=== PATIENT | female | born 1980 | race Caucasian/White ===

== ENCOUNTER 2022-11-01 10:03 | Outpatient (OUT) | payer OTHER, SELFPAY ==
[2022-11-01 11:17] LABS: Hemoglobin 14.1 g/dL (12.0-16.0); Mean Corpuscular HGB Conc 32.8 g/dL (29.9-35.2); Mean Corpuscular Hemoglobin 28.3 pg (26.7-34.0); Mean Corpuscular Volume 86.2 fL (81.0-99.0); Mean Platelet Volume 10.6 fL (9.5-13.5); Platelet Count 282 10^3/uL (150-450); Red Blood Count 4.99 10^6/uL (4.20-5.40); Red Cell Distribution Width 13.4 % (11.0-15.0); White Blood Count 10.8 10^3/uL (4.0-11.0)
[2022-11-01 11:40] LABS: Percent Iron Saturation 8.8 %
== END 2022-11-01 10:04 | disposition home or self-care (01) ==
LOC: LAB 11-07 10:03
PROVIDERS: PCP Nurse Practitioner Primary Care; Visit Provider Nurse Practitioner Primary Care
DX: E55.9 Vitamin D deficiency, unspecified (principal); R74.8 Abnormal levels of other serum enzymes; D50.9 Iron deficiency anemia, unspecified
CPT/HCPCS: 36415; 82306; 82607; 82728; 83540; 83550; 85027

== ENCOUNTER 2022-11-18 07:37 | Outpatient (RCR) | payer OTHER, SELFPAY | END 2022-11-29 23:59 | disposition home or self-care (01) | LOC: INF 07:37 | PROVIDERS: PCP Nurse Practitioner Primary Care; Visit Provider Internal Medicine Hematology & Oncology | DX: D50.9 Iron deficiency anemia, unspecified (principal); K90.9 Intestinal malabsorption, unspecified | CPT/HCPCS: G0463 ==

== ENCOUNTER 2022-12-05 07:59 | Outpatient (OUT) | payer OTHER, SELFPAY ==
--- NOTE | 2022-12-05 | ECG_ITS ---
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
[2022-12-05 10:19] LABS: Basophils Percent Auto 0.4 % (0.2-2.0); Eosinophils Absolute Auto 0.1 10^3/uL (0.0-0.7); Eosinophils Percent Auto 1.2 % (0.9-7.0); Hematocrit 43.5 % (36.0-48.0); Hemoglobin 13.9 g/dL (12.0-16.0); Immature Granulocytes Abs Auto 0.03 10^3/uL (0.00-0.03); Immature Granulocytes Pct Auto 0.3 % (0.0-0.5); Lymphocytes Absolute Auto 2.2 10^3/uL (1.2-3.8); Lymphocytes Percent Auto 24.5 % (20.5-60.0); Mean Corpuscular Hemoglobin 28.3 pg (26.7-34.0); Mean Corpuscular Volume 88.6 fL (81.0-99.0); Mean Platelet Volume 11.1 fL (9.5-13.5); Monocytes Absolute Auto 0.6 10^3/uL (0.3-0.8); Monocytes Percent Auto 6.6 % (1.7-12.0); Platelet Count 289 10^3/uL (150-450); Red Blood Count 4.91 10^6/uL (4.20-5.40); Red Cell Distribution Width 13.5 % (11.0-15.0)
[2022-12-05 10:34] LABS: Alanine Aminotransferase 26 U/L (14-59); Albumin Level 3.6 g/dL (3.4-5.0); Alkaline Phosphatase 94 U/L (46-116); Aspartate Amino Transferase 15 U/L (15-37); Bilirubin Total 0.4 mg/dL (0.2-1.0); Calcium 9.2 mg/dL (8.5-10.1); Carbon Dioxide 27.3 mmol/L (21.0-32.0); Chloride 102 mmol/L (98-107); Estimated GFR (African America >60 (>=60); Estimated GFR (Non-African Ame >60 (>=60); Globulin 3.7 g/dL; Glucose 81 mg/dL (74-106); Potassium 4.3 mmol/L (3.5-5.1); Sodium 138 mmol/L (136-145); Thyroid Stimulating Hormone 0.902 uIU/mL (0.358-3.740); Total Protein 7.3 g/dL (6.4-8.2)
[2022-12-06 03:07] LABS: Prolactin 29.3 ng/mL (4.8-23.3)
== END 2022-12-05 08:00 | disposition home or self-care (01) ==
LOC: CARD 08:00
PROVIDERS: PCP Nurse Practitioner Primary Care
DX: R05.1 Acute cough (principal); Z79.899 Other long term (current) drug therapy
CPT/HCPCS: 36415; 71046; 80053; 84146; 84443; 85025; 93005

== ENCOUNTER 2022-12-05 08:06 | Outpatient (OUT) | payer OTHER, SELFPAY ==
--- NOTE | 2022-12-05 08:13 | XR_ITS ---
The [address] [address] Patient Name: PEE WHITEHEAD MRN: [id number] date: 1980 Sex: F Assigned Patient Location: [facility] Current Patient Location: [facility] Accession/Order Number: [id number] Exam Date: 12/05/2022 08:20 Report Date: 12/05/2022 08:40 At the request of: LUZ MARIA KIDD Procedure: XR chest 2V EXAM: CHEST 2 VIEWS HISTORY: Acute Cough TECHNIQUE: PA and lateral views chest. COMPARISON: None. FINDINGS: The lungs are clear. There is no focal lung consolidation, pleural effusion or pneumothorax. Pulmonary vasculature is within normal limits. There are calcified mediastinal and hilar lymph nodes. The cardiomediastinal silhouette is normal. XR/XR chest 2V IMPRESSION: 1. Clear lungs without consolidation or effusion. Recommend followup imaging if symptoms worsen or persist. Electronically authenticated by: HONG HANDLEY Date: 12/05/2022 08:40
== END 2022-12-05 08:07 | disposition home or self-care (01) ==
LOC: RAD 08:06
PROVIDERS: PCP Nurse Practitioner Primary Care; Visit Provider Nurse Practitioner Primary Care
DX: R05.1 Acute cough (principal)
CPT/HCPCS: 71046

== ENCOUNTER 2022-12-11 12:56 | Outpatient (OUT) | payer OTHER, SELFPAY ==
--- NOTE | 2022-12-11 | XR_ITS ---
The [address] [address] Patient Name: PEE WHITEHEAD MRN: [id number] date: 1980 Sex: F Assigned Patient Location: [facility] Current Patient Location: [facility] Accession/Order Number: [id number] Exam Date: 12/11/2022 13:15 Report Date: 12/12/2022 08:30 At the request of: DEANN ROMERO Procedure: XR ankle LT min 3V PROCEDURE: XR ankle LT min 3V COMPARISON: None. HISTORY: LEFT ANKLE PAIN FINDINGS: BONES:No acute fracture or dislocation. 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 Remote healed fracture of the distal fibular diaphysis. Widening of the tibiofibular syndesmosis suspected SOFT TISSUES:Negative. No visible soft tissue swelling. EFFUSION:None visible. OTHER: Negative. 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
== END 2022-12-11 12:57 | disposition home or self-care (01) ==
LOC: RAD 12:56
PROVIDERS: PCP Nurse Practitioner Primary Care; Visit Provider Physician Assistant
DX: M25.572 Pain in left ankle and joints of left foot (principal)
CPT/HCPCS: 73610

== ENCOUNTER 2022-12-19 07:31 | Outpatient (RCR) | payer OTHER, SELFPAY ==
[2022-12-12 08:10] VITALS: BP 137/81; PULSE 94; RESP 18; TEMP 36.4; O2SAT 96
[2022-12-12] MEDS: FERUMOXYTOL 510 MG in 0.9 % SODIUM CHLORIDE 100 ML 234 MG IV (08:25)
--- NOTE | 2022-12-12 08:49 | PC.NURSE ---
0810: Pt. to [facility] amb. for infusion. Accompanied by son. Seated in recliner. VSS. Denies c/o. #22 gauge IV initiated to left arm on first attempt without difficulty. Flushes easily without redness or edema. Pt. tolerated with minimal c/o. 0825: IV Feraheme initiated at this time. Pt. denies needs or c/o. 0855: IV infusion complete without s&s of adverse reaction. IV d/c'd, pressure to site. Pt. d/c'd amb. to home with son.
[2022-12-19 09:20] VITALS: BP 116/81; PULSE 91; RESP 18; TEMP 36.3; O2SAT 96
[2022-12-19] MEDS: FERUMOXYTOL 510 MG in 0.9 % SODIUM CHLORIDE 100 ML 234 MG IV (09:36)
== END 2022-12-19 13:54 | disposition home or self-care (01) ==
LOC: INF 07:31
PROVIDERS: PCP Nurse Practitioner Primary Care; Visit Provider Internal Medicine Hematology & Oncology
DX: D50.9 Iron deficiency anemia, unspecified (principal); K90.9 Intestinal malabsorption, unspecified
CPT/HCPCS: 96365; Q0138

== ENCOUNTER 2023-01-20 07:29 | Outpatient (RCR) | payer OTHER, SELFPAY ==
[2023-01-13 11:50] LABS: Percent Iron Saturation 34.6 %
== END 2023-01-29 23:59 | disposition home or self-care (01) ==
LOC: INF 07:29
PROVIDERS: PCP Nurse Practitioner Primary Care; Visit Provider Internal Medicine Hematology & Oncology
DX: D64.9 Anemia, unspecified (principal); D50.9 Iron deficiency anemia, unspecified; K90.9 Intestinal malabsorption, unspecified
CPT/HCPCS: 36415; 82728; 83540; 83550; G0463

== ENCOUNTER 2023-03-25 09:27 | Outpatient (OUT) | payer OTHER, SELFPAY ==
--- NOTE | 2023-03-25 09:30 | MM_ITS ---
Patient Name: PEE WHITEHEAD MR#: [id number] : 1980 Exam Date: 03/25/2023 Ordering Doctor: LUZ MARIA KIDD This report includes an Addendum and supersedes previous reports for this exam. RADIOLOGY REPORT PROCEDURE: MM DIAGNOSTIC MAMMO UNILAT RT, 03/25/2023, 09:32 US BREAST RT LIMITED, 03/25/2023, 09:51 COMPARISON: MG MAMM SCREEN 3D STELLA CAD, 03/16/2023. INDICATIONS: abnormal mammogram R92.8 Calculator Name NCI Breast Cancer Risk Assessment Tool 5 Year Breast Cancer Risk Not Reported. Lifetime Breast Cancer Risk Not Reported. Personal Breast Cancer No Personal Ovarian Cancer No Treatments None Family Cancers None LOCATION: [facility] BREAST COMPOSITION: Scattered areas fibroglandular density. FINDINGS: DIAGNOSTIC CATEGORY 2--BENIGN FINDING. NO CHANGE FROM COMPARISON. Spot compression views demonstrate a persistent nodule upper outer quadrant , reniform shape suggests a lymph node. Ultrasound was performed demonstrating 2 lymph nodes in the area the patient's palpable abnormality , both normal in morphology. Lymph node 1 measures 2.1 x 0.7 x 1.2 cm. Lymph node 2 measures 2.5 x 1.4 x 1.0 cm, borderline enlarged. Both lymph nodes demonstrate a thin hypoechogenic cortex, normal. Two normal lymph nodes are favored. No further evaluation is recommended. RECOMMENDATIONS: ROUTINE MAMMOGRAM AND CLINICAL EVALUATION IN 12 MONTHS. PLEASE NOTE: A NORMAL MAMMOGRAM DOES NOT EXCLUDE THE POSSIBILITY OF BREAST CANCER. A CLINICALLY SUSPICIOUS PALPABLE LUMP SHOULD BE BIOPSIED. Dictated by: Zelalem Tejada MD on 03/25/2023 at 10:08 Approved by: Zelalem Tejada MD on 03/25/2023 at 10:11 ADDENDUM: FINDINGS: These findings were discussed at length with Dr. Fisher. The patient has a history of BRCA2 with a strong family history. The mammographic findings are not entirely congruent with the ultrasound findings of normal lymph nodes. Consider follow-up MRI RECOMMENDATIONS: BREAST MRI: BILATERAL BREASTS Dictated by: Zelalem Tejada MD on 05/05/2023 at 12:17 Approved by: Zelalem Tejada MD on 05/05/2023 at 12:19
--- OUTSIDE RECORDS SUMMARY | 2023-03-25 09:31 | XMS_ITS | CCD ---
Author Name Unknown Address [address] [place] [address] Organization [facility] Care Team Providers Care Hand Rug Cleaner Name Role Phone Fernandosilvestrecynthia Juan Ramon Unavailable Unavailable Juan Ramon Jean Unavailable Unavailable DOMENICA OLIVA Unavailable Unavailable RumschlaShawna maloney DO Primary Care Provider Yo Blank Unavailable Gayathri Adams Unavailable Tamar Sosa Unavailable KARY ., DR VARGAS Attending Unavailable KARY ., DR VARGAS Consulting Unavailable MISC, DR TRAORE Primary Care Unavailable KARY ., DR VARGAS Admitting Unavailable HIGHLANDERJOY Admitting Unavailable DEFRANCE, DR METZGER Primary Care Unavailable ZIEBER, DR ONEL Sesay Consulting Unavailable HIGHLANDERJOY Attending Unavailable HIGHLANDERJOY Consulting Unavailable SHAMMOLUZ MARIA Admitting Unavailable SHAMMO, LUZ MARIA Attending Unavailable HANANEMOLUZ MARIA Consulting Unavailable MISC, DR TRAORE Primary Care Unavailable MISC, DR TRAORE Primary Care Unavailable MISC, DR TRAORE Admitting Unavailable MISC, DR TRAORE Attending Unavailable MISC, DR TRAORE Consulting Unavailable Jan Garg Unavailable DOMENICA OLIVA Primary Care Physician HILARY GRANADO Referring Unavailable HILARY GRANADO Attending Unavailable RumschlaShawna maloney DO Primary Care Provider Rumlucalahaider MARQUEZ Shawna K Primary Care Provider SHAMMO, LUZ MARIA Referring Unavailable RUMSCHLAG, SHAWNA K Primary Care Unavailable SHAMMO, LUZ MARIA Referring Unavailable RUMSCHLAG, SHAWNA K Primary Care Unavailable MD Yo Blank Attending Provider RumDO Vicky de pazty Primary Care Provider NON STAFF Primary Care Unavailable Yo Blank Attending Unavailable Yo Blank Admitting Unavailable Yo Blank Attending Unavailable Rumschlag, Shawna Primary Care Unavailable Yo Blank Admitting Unavailable LULY ENGLISH Attending Unavailable GABY JUNE Attending Unavailable RUMSCHLAG, SHAWNA Referring Unavailable RUMSCHLAG, SHAWNA Primary Care Unavailable RUMSCHLAG, SHAWNA Referring Unavailable RUMSCHLAG, SHAWNA Primary Care Unavailable RUMSCHLAG, SHAWNA Primary Care Unavailable SIL FRANCE Attending Unavailable RUMSCHLAG, SHAWNA Primary Care Unavailable RUMSCHLAG, SHAWNA Referring Unavailable RUMSCHLAG, SHAWNA Referring Unavailable RUMSCHLAG, SHAWNA Primary Care Unavailable Allergies Allergy Classification Reported Allergen(s) Allergy Type Date of Onset Reaction(s) Facility (20 sources) cephalexin; Translations: [Keflex] Drug Allergy 3 [facility] Repository (4 sources) citalopram; Translations: [CeleXA] Drug Allergy 3 AOF, heart palpitation [facility] Repository (8 sources) Cephalexin; Translations: [CEPHALEXIN] Drug Allergy 7 [facility] Work Phone: (20 sources) Citalopram; Translations: [CITALOPRAM] Drug Allergy 7 Hives, anaphylaxis [facility] (5 sources) metFORMIN Drug Allergy Unknown [employer] Other (15 sources) metFORMIN; Translations: [METFORMIN] Drug Allergy 3 Unknown [facility] (3 sources) POISON SAVANNAH EXTRACT; Translations: [POISON SAVANNAH EXTRACT] Drug Allergy 3 [facility] (1 source) Cephalexin Drug Allergy 1 [facility] Repository (1 source) Citalopram Drug Allergy 1 [facility] Repository Medications Current Medications Medication Drug Class(es) Dates Sig (Normalized) Sig (Original) [id number] 200 actuat albuterol 0.09 mg/actuat metered dose inhaler (20 sources) beta2-Adrenergic Agonist Start: 07-16-2020 take 2 puff(s) by mouth every six hours as needed for wheezing albuterol (PROVENTIL HFA;VENTOLIN HFA) 90 mcg/actuation inhaler Indications: Obstructive sleep apnea syndrome INHALE 2 PUFFS BY MOUTH EVERY 6 HOURS NEEDED FOR WHEEZING 18 g 0 07/16/2020 Active take 2 puff(s) by in halation every four hours as needed for wheezing albuterol sulfate HFA 108 (90 Base) MCG/ACT inhaler Inhale 2 puffs into the lungs every 4 hours as needed for Wheezing 0 Active Albuterol PRN Ac tive Ros Allergy 180 MG (6 sources) take 1 tablet by mouth once daily Ros Allergy 180 MG 1 tablet Swallow whole with water; do not take with fruit juices. Orally Once a day Active ascorbic acid 500 mg oral tablet (7 sources) Vitamin C take 1 tablet by mouth twice daily Vitamin C 500 MG TAKE 1 TABLET BY MOUTH TWICE DAILY Oral for 20 Days Active bifidobacterium infantis 4 mg oral capsule (8 sources) Start: 3 take 4 mg by mouth once daily Align 4 MG as directed Orally ONCE DAILY for 30 days Dec, Active blood-glucose meter (TRUE METRIX GLUCOSE METER) [facility] (2 sources) Start: 9 blood-glucose meter (TRUE METRIX GLUCOSE METER) [facility] use to test BLOOD SUGAR TWICE DAILY 1 each 0 06/17/2018 Active cetirizine hydrochloride 10 mg oral tablet (11 sources) Histamine-1 Receptor Antagonist Start: 0 take 1 tablet by mouth once daily cetirizine (ZyrTEC) 10 mg tablet TAKE 1 TABLET BY MOUTH DAILY 30 tablet 5 02/06/2020 Active cholecalciferol 0.05 mg oral capsule (10 sources) Vitamin D Start: 2 take 1 capsule by mouth in the morning cholecalciferol, vitamin D3, 2,000 units capsule Take 1 capsule (2,000 Units total) by mouth in the morning. 0 04/09/2021 Active take 1 capsule by [facility] every twenty-four hours Vitamin D3 50 MCG (2000 UT) 1 capsule Orally Once a day Not-Taking/PRN clindamycin 150 mg oral capsule (3 sources) Lincosamide Antibacterial Start: 10-12-2021 End: 10-22-2021 clindamycin (CLEOCIN) 150 MG capsule Take 3 capsules by mouth in the morning and 3 capsules at noon and 3 capsules before bedtime. Do all this for 10 days. 90 capsule 0 10/12/2021 10/22/2021 Active Start: 10-12-2021 End: 10-12-2021 clindamycin (CLEOCIN) capsul e 450 mg docusate sodium 100 mg oral capsule (5 sources) Start: 01-07-2023 docusate sodiu m (COLACE) 100 mg capsule Start: 01-07-2023 take 3 capsules by m outh every twenty-four hours Docusate Sodium 100 MG 3 CAPSULES Orally Once a day for 30 days Dec, Active trulicity 3 mg/0.5ml solution pen-injector (8 sources) GLP-1 Receptor Agonist Trulicity 3 MG/0.5ML as directed Subcutaneous WEEKLY Active empagliflozin 25 mg oral tablet (20 sources) Sodium-Glucose Cotransporter 2 Inhibitor take 25 mg by mouth once daily JARDIANCE 25 mg daily orally Active etonogestrel 68 mg drug implant (20 sources) Progestin Start: 10-15-19 Nexplanon 68 mg subcutaneous implant Refills(s) 0 Start Date: 10/14/18 Status: Ordered etonogestreL (NE XPLANON) 68 mg implant 1 each (68 mg total) by subdermal route once. 0 Active famotidine 20 mg oral tablet (20 sources) Histamine-2 Receptor Antagonist Start: 10-14-2018 take 1 tablet by mouth twice daily famotidine (PEPCID) 20 mg tablet TAKE 1 TABLET BY MOUTH TWICE DAILY 60 tablet 5 04/09/2020 Active take 1 tablet by elan th every twenty-four hours Pepcid 40 MG 1 tablet Orally Once a day Active ferrous sulfate 325 mg oral tablet (6 sources) Start: 04-09-2020 take 1 tablet by mouth once daily ferrous sulfate 325 (65 FE) mg tablet TAKE 1 TABLET BY MOUTH DAILY 30 tablet 5 04/09/2020 Active fexofenadine hydrochloride 180 mg oral tablet (8 sources) Histamine-1 Receptor Antagonist take 1 tablet by mouth once daily Ros Allergy 180 MG 1 tablet Swallow whole with water; do not take with fruit juices. Orally Once a day Active take 1 tablet by mouth in the mo rning fexofenadine (ROS) 60 mg tablet Take 1 tablet (60 mg total) by mouth in the morning. 0 Active FLUoxetine 40 mg oral capsule (20 sources) Serotonin Reuptake Inhibitor Start: 07-14-2019 take 1 capsule by mouth in the morning FLUoxetine (PROzac) 40 mg capsule Take 1 capsule (40 mg total) by mouth in the morning. 0 07/14/2019 Active take 3 capsules by mouth once da dionna FLUoxetine (PROZAC) 20 MG capsule Take 60 mg by mouth daily 0 Active fluticasone propionate 0.05 mg/actuat metered dose nasal spray (20 sources) Corticosteroid Start: 07-16-2020 take 2 spray(s) nasal route once daily fluticasone propionate (FLONASE) 50 mcg/actuation nasal spray instill 2 (TWO) sprays in EACH nostril ONCE DAILY 16 g 0 07/16/2020 Active fluticasone (ANTHONY NASE) 50 MCG/ACT nasal spray 1 spray by Nasal route daily 0 Active Flonase PRN Acti ve gabapentin 100 mg oral capsule (20 sources) Anti-epileptic Agent Start: 10-14-2018 take 1 capsule by mouth twice daily gabapentin 100 mg Cap 100 mg = 1 cap(s), Oral, BID, Refills(s) 0 Start Date: 10/14/18 Status: Ordered take 2 capsules by m outh every twenty-four hours Gabapentin 100 MG 2 CAPSULES Orally Once a day Active hydrocortisone 10 mg/ml / neomycin 3.5 mg/ml / polymyxin b 33515 unt/ml otic solution (1 source) Aminoglycoside Antibacterial, Polymyxin-class Antibacterial, Corticosteroid Start: 10-22-2021 End: 10-29-2021 ytarfyir-ufvcpbmwy-izmgygkgg isone (CORTISPORIN) 3.5-03276-[address] 4 drops into the left ear 3 times daily for 7 days Instill into left Ear TID x 7 days 10 mL 0 10/22/2021 10/29/2021 Active hydrOXYzine hydrochloride 25 mg oral tablet (4 sources) Antihistamine Start: 10-21-2017 take 1 tablet by mouth every four hours as needed hydrOXYzine (ATARAX) 25 MG tablet Take 1 tablet by mouth every 4 hours as needed for Itching 30 tablet 1 10/21/2017 Active ibuprofen 600 mg oral tablet (20 sources) Nonsteroidal Anti-inflammatory Drug Start: 03-20-2018 take 1 tablet by mouth four times daily as needed for pain ibuprofen (ADVIL;MOTRIN) 600 MG tablet Take 1 tablet by mouth 4 times daily as needed for Pain 30 tablet 1 03/20/2018 Active take 1 tablet by elan th every eight hours at mealtime as needed Ibuprofen 800 MG 1 tablet with food or m ilk as needed Orally every 8 hrs Not-Taking/PRN take 1 tablet by elan th every six hours as needed for pain ibuprofen (MOTRIN) 800 mg tablet Take 1 tablet (800 mg total) by mouth every 6 (six) hours as needed for pain. 0 Active lamoTRIgine 200 mg oral tablet (20 sources) Mood Stabilizer, Anti-epileptic Agent Start: 02-13-2019 take 1 tablet by mouth in the morning lamoTRIgine (LaMICtal) 200 mg tablet Take 1 tablet (200 mg total) by mouth in the morning. 0 02/13/2019 Active lisdexamfetamine dimesylate 70 mg oral capsule (19 sources) Central Nervous System Stimulant Start: 01-09-2022 lisdexamfetamine (VYVANSE) 70 mg capsule 1 capsule in the morning 0 01/09/2022 Active lurasidone hydrochloride 80 mg oral tablet (20 sources) Atypical Antipsychotic Start: 01-19-2020 take 1 tablet by mouth once daily at breakfast LATUDA 80 mg tablet Take 1 tablet (80 mg total) by mouth daily with breakfast. 0 04/17/2020 Active 10 ml methocarbamol 100 mg/ml injection (5 sources) Muscle Relaxant Start: 10-14-2018 Robaxin 100 mg/mL inj Refills(s) 0 Start Date: 10/14/18 Status: Ordered take 1 tablet by elan th three times daily methocarbamol (ROBAXIN) 500 MG tablet Ta ke 500 mg by mouth 3 times daily 0 Active montelukast 10 mg oral tablet (16 sources) Leukotriene Receptor Antagonist Start: 10-14-2018 take 1 tablet by mouth once daily montelukast (SINGULAIR) 10 mg tablet TAKE 1 TABLET BY MOUTH NIGHTLY 30 tablet 0 07/16/2020 Active ilcmfpsk-vrwo-GP-ca lcium &mins (THERAGRAN-M) 9 mg iron-400 mcg tablet (2 sources) kozuvtzc-ynlv-RB -c alcium &mins (THERAGRAN-M) 9 mg iron-400 mcg tablet Take 1 tablet by mouth in the morning. 0 Active Multivitamin preparation (20 sources) Multivitamin Active naproxen 500 mg oral tablet (20 sources) Nonsteroidal Anti-inflammatory Drug Start: 12-02-2022 take 1 tablet by mouth in the morning, then take 1 tablet by mouth at mealtime naproxen (NAPROSYN) 500 mg tablet Take 1 tablet (500 mg total) by mouth in the morning and 1 tablet (500 mg total) in the evening. Take with meals. 60 tablet 2 12/02/2022 Active NON FORMULARY (4 sources) NON FORMULARY Hair, Skin & Nails - 2 gummies in the morning 0 Active NON FORMULARY Ne osporin cream- applies to bilateral nostrils 3 times a day 0 Active omeprazole 20 mg delayed release oral capsule (4 sources) Proton Pump Inhibitor take 2 capsules by mouth once daily omeprazole (PRILOSEC) 20 MG delayed release capsule Take 40 mg by mouth daily 0 Active pioglitazone 30 mg oral tablet (20 sources) Peroxisome Proliferator Receptor alpha Agonist, Peroxisome Proliferator Receptor gamma Agonist, Thiazolidinedione Start: 021 take 1 tablet by mouth once daily pioglitazone (ACTOS) 30 mg tablet Take 1 tablet (30 mg total) by mouth daily. 30 tablet 5 05/10/2020 Active plecanatide 3 mg oral tablet (1 source) Start: 023 take 1 tablet by mouth every twenty-four hours Trulance 3 MG 1 tablet Orally Once a day for 30 days Jan, Active polyethylene glycol 3350 [id number] mg / potassium chloride 2970 mg / sodium bicarbonate 6740 mg / sodium chloride 5860 mg / sodium sulfate 73133 mg powder for oral solution (2 sources) Osmotic Laxative Start: 024 Golytely 236 GM 236 ml Orally 8 ounces every 15 minutes for 1 days PLEASE CHECK ALLERGIES Mar, Active promethazine hydrochloride 25 mg oral tablet (1 source) Phenothiazine Start: 020 take 1 tablet by mouth every six hours as needed for nausea promethazine 25 mg Tab 25 mg = 1 tab(s), Oral, q6hr, PRN Nausea, # 20 tab(s), Refills(s) 0, Pharmacy: [id number], 157, cm, 03/10/19 12:21:00 EST, Height/Length Measured, 100.7, kg, 03/10/19 12:21:00 EST, Weight Measured Start Date: 06/13/19 Status: Ordered rizatriptan 10 mg oral tablet (19 sources) Serotonin-1b and Serotonin-1d Receptor Agonist Start: 019 take 1 tablet by mouth every two hours, then take 2 tablets by mouth once daily rizatriptan (MAXALT) 10 mg tablet TAKE 1 TABLET BY MOUTH at onset of migraine, may repeat after 2 hours if needed (max 2 tablets per day, 2 days per week) 2 01/16/2019 Active Maxalt 10 MG 1 t ablet Orally as needed Active rosuvastatin calcium 20 mg oral tablet (20 sources) HMG-CoA Reductase Inhibitor take 1 tablet by mouth every twenty-four hours Rosuvastatin Calcium 20 MG 1 tablet Orally Once a day Active Rosuvastatin Leonardo cium Active 1 mg dose 1.5 ml semaglutide 1.34 mg/ml pen injector (11 sources) Start: 01-15-2022 semaglutide 1 mg/dose (2 mg/1.5 mL) pen injector Waiting for approval to take the 2mg dose not 1 dose 0 01/15/2022 Active Ozempic (0.25 or 0.5 MG/DOSE) 2 MG/1.5ML as directed Subcutaneous Not-Taking SUMAtriptan 100 mg oral tablet (19 sources) Serotonin-1b and Serotonin-1d Receptor Agonist Start: 11-03-2018 take 1 tablet by mouth every two hours, then take 2 tablets by mouth once daily, then take 2 tablets by mouth every week SUMAtriptan (IMITREX) 100 mg tablet TAKE 1 TABLET BY MOUTH at onset of FOR MIGRAINE. May repeat once after 2 hours if needed (max 2 TABLETS per day, 2 TABLETS per week) 2 11/03/2018 Active take 1 tablet by elan th every two hours as needed, then take 1 tablet by mouth twice daily as needed SUMAtriptan Succinate 25 MG 1 tablet at least 2 hours between doses as needed Orally Twice a day Active temazepam 15 mg oral capsule (4 sources) Benzodiazepine take 1 capsule by mouth once daily as needed for sleep temazepam (RESTORIL) 15 MG capsule Take 15 mg by mouth nightly as needed for Sleep 0 Active tiZANidine 4 mg oral tablet (20 sources) Central alpha-2 Adrenergic Agonist Start: 2 tiZANidine (ZANAFLEX) 4 mg tablet Start: 10-14-2018 tizanidine 4 m g oral capsule Refills(s) 0 Start Date: 10/14/18 Status: Ordered take 2 tablets by mo [facility] every twenty-four hours tiZANidine HCl 4 MG 2 tablet Orally daily Active [facility] tiZANidine HCl 4 MG 1 tablet Orally TWICE A DAY Active topiramate 200 mg oral tablet (4 sources) take 1 tablet by mouth once daily topiramate (TOPAMAX) 200 MG tablet Take 200 mg by mouth daily 0 Active traMADol (7 sources) Opioid Agonist Ultram Active traZODone hydrochloride 50 mg oral tablet (20 sources) Serotonin Reuptake Inhibitor Start: 1 traZODone (DESYREL) 50 mg tablet as needed. 0 04/17/2020 Active Trulance 3 MG (1 source) Start: 3 take 1 tablet by mouth once daily Trulance 3 MG 1 tablet Orally Once a day for 30 days Jan, Active TRULICITY 3 mg/0.5 mL pen injector (2 sources) Start: 3 TRULICITY 3 mg/0.5 mL pen injector Injects on Sundays 0 10/15/2022 Active Ventolin HFA 90 mcg/inh Aerosol (1 source) Start: 9 Ventolin HFA 90 mcg/inh Aerosol Refill(s) 0 Start Date: 10/14/18 Status: Ordered Vitamin B Complex (2 sources) Start: 0 take 1 tablet by mouth once daily B COMPLEX-VITAMIN B12 tablet TAKE 1 TABLET BY MOUTH DAILY 30 tablet 5 01/16/2020 Active Vitamin D (13 sources) Vitamin D Active zonisamide 100 mg oral capsule (4 sources) Anti-epileptic Agent take 1 capsule by mouth once daily zonisamide (ZONEGRAN) 100 MG capsule Take 100 mg by mouth daily 0 Active Completed/Discontinued Medications Medication Drug Class(es) Dates Sig (Normalized) Sig (Original) Iron (20 sources) Iron Not-Taking/ PRN Iron Not-Taking Iron Active meloxicam 15 mg oral tablet (17 sources) Nonsteroidal Anti-inflammatory Drug take 1 tablet by mouth every twenty-four hours Meloxicam 15 MG 1 tablet Orally Once a day Not-Taking/PRN ondansetron 4 mg disintegrating oral tablet (1 source) Serotonin-3 Receptor Antagonist Start: 2021 End: 2021 ondansetron (ZOFRAN-ODT) disintegrating tablet 4 mg Ozempic (0.25 or 0.5 MG/DOSE) 2 MG/1.5ML (8 sources) Ozempic (0.25 or 0.5 MG/DOSE) 2 MG/1.5ML as directed Subcutaneous Not-Taking/PRN Ozempic (0.25 or 0.5 MG/DOSE) 2 MG/1.5ML as directed Subcutaneous Not-Taking polyethylene glycol 3350 13212 mg powder for oral solution (7 sources) Osmotic Laxative Start: 02-05-2023 MiraLax 17 GM /SCOOP 17 gr in liquid in the morning. if no bowel movement at noon, take 17 grams in liquid. If no lbowel movement by dinner, take 17 gr in liquid Orally 1-3 times a day for 30 days Jan, Not-Taking/PRN Start: 02-05-2023 MiraLax 17 GM/ SCOOP take 238 gr in liquid the day prior to colonoscopy Orally Once a day for 30 days Jan, Active vitamin B12 (20 sources) Vitamin B12 Vitamin B12 Not- Taking/PRN Vitamin B12 Not- Taking Vitamin B12 Acti ve Problems Active Problems Problem Classification Problem Date Documented Da te Episodic/Chronic Abdominal pain (1 source) Unspecified abdominal pain Episodic Administrative/social admission (2 sources) Persons encountering health services in other specified circumstances; Translations: [Persons encountering health services in other specified circumstances] Onset: 04-07-2023 Episodic Anxiety disorders (20 sources) Posttraumatic stress disorder; Translations: [Post-traumatic stress disorder, unspecified] Onset: 06-16-2018 Chronic Attention-deficit, conduct, and disruptive behavior disorders (20 sources) Attention deficit hyperactivity disorder; Translations: [Attention-deficit hyperactivity disorder, unspecified type] Chronic Attention-deficit, conduct, and disruptive behavior disorders (8 sources) Attention-deficit hyperactivity disorder, unspecified type Chronic Calculus of urinary tract (8 sources) Personal history of urinary calculi Episodic Diabetes mellitus with complications (20 sources) Hyperglycemia due to type 2 diabetes mellitus; Translations: [Type 2 diabetes mellitus with hyperglycemia] Chronic Diabetes mellitus without complication (2 sources) 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; Translations: [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s] Onset: 11-10-2017 11-10-2017 Chronic Diverticulosis and diverticulitis (2 sources) Diverticulitis; Translations: [Diverticulitis of intestine, part unspecified, without perforation or abscess without bleeding] 01-02-2020 Chronic Gastrointestinal hemorrhage (1 source) Hemorrhage of anus and rectum Episodic Impulse control disorders, NEC (1 source) Impulse control disorder; Translations: [Impulse disorder, unspecified] Chronic Mood disorders (2 sources) Mixed bipolar affective disorder, moderate; Translations: [Bipolar disorder, current episode mixed, moderate] Chronic Nausea and vomiting (1 source) Nausea 11-26-2018 Episodic Nonmalignant breast conditions (20 sources) Large breast; Translations: [Hypertrophy of breast] Episodic Other ear and sense organ disorders (1 source) Acute otitis externa; Translations: [Diffuse otitis externa, left ear] Episodic Other endocrine disorders (20 sources) Reactive hypoglycemia; Translations: [Other hypoglycemia] Chronic Other endocrine disorders (8 sources) Other hypoglycemia Chronic Other gastrointestinal disorders (9 sources) Constipation; Translations: [Constipation, unspecified] 03-02-2023 Episodic Other gastrointestinal disorders (5 sources) Constipation, unspecified; Translations: [Constipation, unspecified] Onset: 03-02-2023 Episodic Other liver diseases (20 sources) Steatosis of liver; Translations: [Fatty (change of) liver, not elsewhere classified] Chronic Other liver diseases (9 sources) Fatty (change of) liver, not elsewhere classified Onset: 10-29-2021 Resolved: 10-29-2021 Chronic Other nervous system disorders (20 sources) Circadian rhythm sleep disorder of shift work type; Translations: [Circadian rhythm sleep disorder, shift work type] Chronic Other nervous system disorders (8 sources) Circadian rhythm sleep disorder, shift work type Chronic Other nutritional; endocrine; and metabolic disorders (20 sources) Obesity; Translations: [Obesity, unspecified] Chronic Other nutritional; endocrine; and metabolic disorders (20 sources) Other lipoprotein metabolism disorders; Translations: [Steatosis] Chronic Other nutritional; endocrine; and metabolic disorders (12 sources) Obesity, unspecified Onset: 10-29-2021 Resolved: 10-29-2021 Chronic Other nutritional; endocrine; and metabolic disorders (20 sources) Obese class II; Translations: [Body mass index (BMI) 39.0-39.9, adult] Chronic Other nutritional; endocrine; and metabolic disorders (2 sources) Body mass index (BMI) 39.0-39.9, adult Chronic Other nutritional; endocrine; and metabolic disorders (17 sources) Body mass index 40+ - severely obese; Translations: [Body mass index (BMI) 40.0-44.9, adult] Chronic Other nutritional; endocrine; and metabolic disorders (4 sources) Body mass index (BMI) 36.0-36.9, adult Chronic Other nutritional; endocrine; and metabolic disorders (3 sources) Body mass index (BMI) 34.0-34.9, adult Chronic Other nutritional; endocrine; and metabolic disorders (12 sources) Obese class I; Translations: [Body mass index (BMI) 34.0-34.9, adult] Chronic Other nutritional; endocrine; and metabolic disorders (1 source) Body mass index (BMI) 35.0-35.9, adult Chronic Other nutritional; endocrine; and metabolic disorders (1 source) Body mass index (BMI) 37.0-37.9, adult Chronic Other screening for suspected conditions (not mental disorders or infectious disease) (20 sources) Elevated liver enzymes level; Translations: [Abnormal results of liver function studies] Onset: 02-25-2022 Episodic Residual codes; unclassified (4 sources) Obstructive sleep apnea (adult) (pediatric); Translations: [OBSTRUCTIVE SLEEP APNEA] Onset: 05-07-2022 Chronic Screening and history of mental health and substance abuse codes (1 source) Abnormal developmental screening; Translations: [Encounter for autism screening] Episodic Skin and subcutaneous tissue infections (1 source) Pilonidal cyst; Translations: [Pilonidal cyst without abscess] Episodic Spondylosis; intervertebral disc disorders; other back problems (6 sources) Displacement of cervical intervertebral disc; Translations: [Other cervical disc displacement, unspecified cervical region] Onset: 09-21-2017 01-11-2018 Chronic Spondylosis; intervertebral disc disorders; other back problems (3 sources) 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; Translations: [Intervertebral disc 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] Onset: 12-02-2022 12-16-2022 Episodic Unclassified (1 source) Dietary counseling and surveillance; Translations: [Dietary counseling and surveillance] Onset: 03-05-2023 Past or Other Problems Problem Classification Problem Date Documented Da te Episodic/Chronic Biliary tract disease (2 sources) Acute cholecystitis; Translations: [Acute cholecystitis] Onset: 09-15-2016 09-15-2016 Episodic Complications of surgical procedures or medical care (2 sources) Abscess; Translations: [Infection following a procedure, other surgical site, initial encounter] Onset: 09-28-2016 09-28-2016 Episodic Immunizations and screening for infectious disease (1 source) Encounter for screening for other viral diseases; Translations: [ENC SCREENING FOR OTH VIRAL DZ] Onset: 02-25-2022 Episodic Lymphadenitis (2 sources) Axillary lymphadenopathy; Translations: [Localized enlarged lymph nodes] Onset: 05-10-2020 05-10-2020 Episodic Mood disorders (2 sources) Mood disorders Onset: 05-02-2020 05-02-2020 Other connective tissue disease (1 source) Pain in left foot; Translations: [PAIN IN LEFT FOOT] Onset: 02-01-2022 Episodic Other liver diseases (4 sources) Abnormal levels of other serum enzymes; Translations: [ABNORMAL LEVELS OTHER SERUM ENZYMES] Onset: 02-17-2022 Episodic Other non-traumatic joint disorders (4 sources) Pain in left ankle and joints of left foot; Translations: [PAIN IN LEFT ANKLE] Onset: 01-29-2022 Episodic Unclassified (2 sources) Onset: 02-10-2020 02-10-2020 Results Test Name Value Interpretation Reference Range Facility Glucose Poct Glucometerson 0 03-18-2023 Commemt1 Glu2: Cleaned Meter Normal [facility] Comment on above: Result Comment: PERF ORMED BY: [facility] [address] [place] [address] PATHOLOGIST PULL TAB DEALER SHA VALERA M.D. Performed By: #### G LULS #### Point of Care testing , Glucose [Mass/Vol] 87 mg/dL Normal [facility] Comment on above: Result Comment: [facility] Glucose Reference Range is dependent on time and content of last meal. Glucose of more than 200 mg/dL in a nonstressed, ambulatory subject supports the diagnosis of Diabetes Mellitus. Performed By: #### G LULS #### Point of Care testing , HCG,Urineon 03-18-2023 Beta HCG ( test) Ql (U) Negative Normal [facility] Comment on above: Result Comment: PERF ORMED BY: [facility] [address] [place] [address] PATHOLOGIST PULL TAB DEALER SHA VALERA M.D. Performed By: #### U HCG #### [facility] [address] CBC AND AUTO DIFFon 03-16-19 24 ABSOLUTE BASOPHIL 0.0 X10E9/L Normal 0.0-0.2 [facility] Comment on above: Performed By: #### T SHR, CMP, CBCA, 18199-7 #### [facility] ([id number]) [address], [address] [place] [address] ABSOLUTE NEUTROPHIL 7.7 X10E9/L High 1.5-6.6 [facility] Comment on above: Performed By: #### T SHR, CMP, CBCA, 66326-4 #### [facility] ([id number]) [address], [address] [place] [address] Basophils/100 WBC (Bld) 0.3 % Normal [facility] Comment on above: Performed By: #### T SHR, CMP, CBCA, 73671-9 #### [facility] ([id number]) [address], [address] [place] [address] Eosinophils (Bld) [#/Vol] 0.1 10*3/uL Normal 0.0-0.4 [facility] Comment on above: Performed By: #### T SHR, CMP, CBCA, 06770-2 #### [facility] ([id number]) [address], [address] [place] [address] Eosinophils/100 WBC (Bld) 1.1 % Normal [facility] Comment on above: Performed By: #### T SHR, CMP, CBCA, 79894-8 #### [facility] ([id number]) [address] [address] [place] [address] Erythrocyte distribution width (RBC) [Ratio] 14.6 % Normal 11.5-15.0 [facility] Comment on above: Performed By: #### T SHR, CMP, CBCA, 85088-0 #### [facility] ([id number]) [address] [address] [place] [address] Hematocrit (Bld) [Volume fraction] 45.7 % Normal 35-47 [facility] Comment on above: Performed By: #### T SHR, CMP, CBCA, 97121-4 #### [facility] ([id number]) [address] [address] Hemoglobin (Bld) [Mass/Vol] 15.0 g/dL Normal 11.7-15.5 [facility] Comment on above: Performed By: #### T SHR, CMP, CBCA, 06662-1 #### [facility] ([id number]) [address] [address] Lymphocytes (Bld) [#/Vol] 2.4 10*3/uL Normal 1.0-3.5 [facility] Comment on above: Performed By: #### T SHR, CMP, CBCA, 47682-9 #### [facility] ([id number]) [address] [address] Lymphocytes/100 WBC (Bld) 22.1 % Normal [facility] Comment on above: Performed By: #### T SHR, CMP, CBCA, 80755-4 #### [facility] ([id number]) [address] [address] MCH (RBC) [Entitic mass] 29.0 pg Normal 27-34 [facility] Comment on above: Performed By: #### T SHR, CMP, CBCA, 52211-1 #### [facility] ([id number]) [address], [facility] [address] [place] [address] MCHC (RBC) [Mass/Vol] 32.8 g/dL Normal 32-36 [facility] Comment on above: Performed By: #### T SHR, CMP, CBCA, 65832-8 #### [facility] ([id number]) [address], [facility] [address] [place] [address] MCV (RBC) [Entitic vol] 88 fL Normal 80-100 [facility] Comment on above: Performed By: #### T SHR, CMP, CBCA, 42911-9 #### [facility] ([id number]) [address], [facility] [address] [place] [address] Monocytes (Bld) [#/Vol] 0.6 10*3/uL Normal 0-0.9 [facility] Comment on above: Performed By: #### T SHR, CMP, CBCA, 40777-2 #### [facility] ([id number]) [address], [facility] [address] [place] [address] Monocytes/100 WBC (Bld) 5.7 % Normal [facility] Comment on above: Performed By: #### T SHR, CMP, CBCA, 26247-0 #### [facility] ([id number]) [address] [address] [place] [address] Neutrophils/100 WBC (Bld) 70.8 % Normal [facility] Comment on above: Performed By: #### T SHR, CMP, CBCA, 89698-6 #### [facility] ([id number]) [address], [facility] [address] [place] [address] Platelet mean volume (Bld) [Entitic vol] 9.7 fL Normal 7-12 [facility] Comment on above: Performed By: #### T SHR, CMP, CBCA, 92012-3 #### [facility] ([id number]) [address], [address] [place] [address] Platelets (Bld) [#/Vol] 303 10*3/uL Normal 150-450 [facility] Comment on above: Performed By: #### T SHR, CMP, CBCA, 02082-3 #### [facility] ([id number]) [address], [facility] [address] [place] [address] RBC COUNT 5.17 X10E12/L Normal 3.80-5.20 [facility] Comment on above: Performed By: #### T SHR, CMP, CBCA, 13645-4 #### [facility] ([id number]) [address] [address] [place] [address] WBC (Bld) [#/Vol] 10.9 10*3/uL Normal 4.0-11.0 [facility] Comment on above: Performed By: #### T SHR, CMP, CBCA, 59248-1 #### [facility] ([id number]) [address] [address] [place] [address] COMPREHENSIVE METABOLIC PANE Dirk 03-16-2023 Albumin [Mass/Vol] 4.7 g/dL Normal 3.2-5.3 [facility] Comment on above: Performed By: #### T SHR, CMP, CBCA, 96920-4 #### [facility] ([id number]) [address] [address] [place] [address] ALP [Catalytic activity/Vol] 74 U/L Normal 39-130 [facility] Comment on above: Performed By: #### T SHR, CMP, CBCA, 84786-8 #### [facility] ([id number]) [address], [address] [place] [address] ALT [Catalytic activity/Vol] 22 U/L Normal 0-31 [facility] Comment on above: Performed By: #### T SHR, CMP, CBCA, 74835-1 #### [facility] ([id number]) [address], [address] [place] [address] Anion gap [Moles/Vol] 12 mmol/L Normal 5-15 [facility] Comment on above: Performed By: #### T SHR, CMP, CBCA, 58203-1 #### [facility] ([id number]) [address], [address] [place] [address] AST [Catalytic activity/Vol] 20 U/L Normal 0-41 [facility] Comment on above: Performed By: #### T SHR, CMP, CBCA, 05366-6 #### [facility] ([id number]) [address], [address] [place] [address] Bilirubin [Mass/Vol] 0.5 mg/dL Normal 0.3-1.2 [facility] Comment on above: Performed By: #### T SHR, CMP, CBCA, 84723-6 #### [facility] ([id number]) [address], [address] [place] [address] Calcium [Mass/Vol] 9.9 mg/dL Normal 8.5-10.5 [facility] Comment on above: Performed By: #### T SHR, CMP, CBCA, 31013-2 #### [facility] ([id number]) [address], [address] [place] [address] Chloride [Moles/Vol] 105 mmol/L Normal 98-109 [facility] Comment on above: Performed By: #### T SHR, CMP, CBCA, 43656-6 #### [facility] ([id number]) [address], [address] [place] [address] CO2 [Moles/Vol] 25 mmol/L Normal 22-32 [facility] Comment on above: Performed By: #### T ALISSA, CMP, CBCA, 72785-9 #### [facility] ([id number]) [address], [address] [place] [address] Creatinine [Mass/Vol] 0.74 mg/dL Normal 0.40-1.00 [facility] Comment on above: Result Comment: METH OD TRACEABLE TO IDMS STANDARD Performed By: #### T ALISSA, CMP, CBCA, 23109-1 #### [facility] ([id number]) [address], [address] [place] [address] eGFR (CKD-EPI) NON-RACE DEPENDENT >90 Normal >59 [facility] Comment on above: Result Comment: Reported eGFR is based on the CKD-EPI 2020 equation that does not use a race coefficient. Performed By: #### T ALISSA, CMP, CBCA, 57640-5 #### [facility] ([id number]) [address], [address] [place] [address] Glucose [Mass/Vol] 143 mg/dL High 65-99 [facility] Comment on above: Performed By: #### T ALISSA, CMP, CBCA, 35255-7 #### [facility] ([id number]) [address], [address] [place] [address] Potassium [Moles/Vol] 3.8 mmol/L Normal 3.5-5.0 [facility] Comment on above: Performed By: #### T ALISSA, CMP, CBCA, 66315-4 #### [facility] ([id number]) [address], [address] [place] [address] Protein [Mass/Vol] 7.8 g/dL Normal 6.0-8.0 [facility] Comment on above: Performed By: #### T ALISSA, CMP, CBCA, 52161-4 #### [facility] ([id number]) [address], [address] [place] [address] Sodium [Moles/Vol] 142 mmol/L Normal 134-146 [facility] Comment on above: Performed By: #### T ALISSA, CMP, CBCA, 79890-7 #### [facility] ([id number]) [address], [facility] [address] [place] [address] Urea nitrogen [Mass/Vol] 17 mg/dL Normal 5-23 [facility] Comment on above: Performed By: #### T ALISSA, CMP, CBCA, 87218-4 #### [facility] ([id number]) [address], [facility] [address] [place] [address] HGB A1C (GLYCO-HGB)on 2023 Glucose [Mass/Vol] 117 mg/dL Normal [facility] Comment on above: Performed By: #### T ALISSA, CMP, CBCA, 93512-4 #### [facility] ([id number]) [address], [address] [place] [address] HbA1c (Bld) [Mass fraction] 5.7 % High 4.4-5.6 [facility] Comment on above: Result Comment: NOTE ADA Guidelines Result HgbA1c Normal : less than 5.7 % Prediabetes : 5.7 % to 6.4 % Diabetes : > 6.4 % Use with caution in patients with abnormal hemoglobin variants as the half-life of red blood cells and in vivo glycation rates are affected. Performed By: #### T ALISSA, CMP, CBCA, 28818-4 #### [facility] ([id number]) [address] [address] [place] [address] Lipid 1996 panelon 4 Cholesterol [Mass/Vol] 132 mg/dL Low 150-200 [facility] Comment on above: Performed By: #### T ALISSA, CMP, CBCA, 14434-5 #### [facility] ([id number]) [address], [address] [place] [address] Cholesterol in HDL [Mass/Vol] 58 mg/dL Normal >39 [facility] Comment on above: Result Comment: HDL <40 mg/dL - High Risk HDL > or = 40mg/dL- Desirable HDL >60 mg/dL - Negative Risk Performed By: #### T SHR, CMP, CBCA, 53241-9 #### [facility] ([id number]) [address], [address] [place] [address] Cholesterol in LDL [Mass/Vol] 51 mg/dL Normal <130 [facility] Comment on above: Result Comment: LDL <100 mg/dL - Desirable LDL >160 mg/dL - High Risk Performed By: #### T SHR, CMP, CBCA, 63858-4 #### [facility] ([id number]) [address], [address] [place] [address] Cholesterol in VLDL [Mass/Vol] 23 mg/dL Normal 0-30 [facility] Comment on above: Performed By: #### T SHR, CMP, CBCA, 72757-0 #### [facility] ([id number]) [address], [address] [place] [address] CHOLESTEROL:HDL 2.3 Normal 1.0-5.0 [facility] Comment on above: Performed By: #### T SHR, CMP, CBCA, 38211-4 #### [facility] ([id number]) [address], [address] [place] [address] Triglyceride [Mass/Vol] 114 mg/dL Normal 27-150 [facility] Comment on above: Performed By: #### T ALISSA, CMP, CBCA, 39896-5 #### [facility] ([id number]) [address] [facility] [place] [address] MAMM SCREENING BILATERAL W C cow tester 03-16-2023 MAMM SCREENING BILATERAL W CAD MAMM SCREENING BILATERAL W CAD EXAM: MAMM SCREENING BILATERAL W CAD, 03/16/2023 11:40 AM CLINICAL INDICATIONS: Screening, Encounter for screening mammogram for malignant neoplasm of breast COMPARISON: 11/07/2021, 11/06/2020, 04/30/2020 TECHNIQUE: Bilateral digital tomosynthesis MLO and CC views of the breasts were obtained, with creation of synthetic 2D views. Computer aided detection was utilized. FINDINGS: The breasts are almost entirely fatty. There is a 1 cm mass within the posterior depth upper outer right breast, approximately 17 cm from the nipple. This demonstrates noncircumscribed margins. This is located near 10-11:00. There are no additional suspicious masses, calcifications, or areas of architectural distortions. IMPRESSION: The mass of the upper outer right breast could represent a lymph node however given indeterminate appearance, a targeted ultrasound evaluation is recommended for further characterization. Patient should return for additional sonographic images. BI-RADS: BI-RADS 0 - Incomplete. Needs additional imaging evaluation. Recommendation: Additional imaging required. Finalized by Joy Pascual MD on 03/16/2023 3:25 PM 0A a ADDITIONAL I Normal [facility] TSH WITH REFLEXon 03-16-2023 TSH 0.55 uIU/mL Normal 0.49-4.67 [facility] Comment on above: Performed By: #### T ALISSA, CMP, CBCA, 88906-3 #### [facility] ([id number]) [address] [facility] [place] [address] PT - Assessmentson 3 PT - Assessments [id number]#1.00CD:127 Normal [facility] ST - Assessmentson 3 ST - Assessments [id number]#1.00CD:127 Normal [facility] Consenton 09-25-2022 Consent [id number]#1.00CD:127 Normal [facility] Outside Recordson 2022 Outside Records [id number]#1.00CD:127 Normal [facility] ST - Orderson 2022 ST - Orders [id number]#1.00CD:127 Normal [facility] ST - Orders [id number]#1.00CD:127 Normal [facility] ST - Otheron 2022 ST - Other [id number]#1.00CD:127 Normal [facility] PAP ACOG PANEL 2: 30 to 65on 05-27-2022 . . Normal [facility] Comment on above: Result Comment: Perf ormed at: WB Performed By: #### [id number] #### [facility] [address] [place] [address] Dr. Do Aguilar Age Gdln ACOG Testing 30-65 Normal [facility] Comment on above: Performed By: #### 4 [id number] #### [facility] [address] [place] [address] Dr. Do Aguilar DIAGNOSIS: Comment Normal [facility] Comment on above: Result Comment: NEGA TIVE FOR INTRAEPITHELIAL LESION OR MALIGNANCY. Performed at: WB Performed By: #### 4 [id number] #### [facility] [address] [place] [address] Dr. oD Aguilar HPV Aptima Negative Normal Negative [facility] Comment on above: Result Comment: This nucleic acid amplification test detects fourteen high-risk HPV types (16,18,31,33,35,39,45,51,52,56,58,59,66,68) without differentiation. Performed at: =G Performed By: #### 4 [id number] #### [facility] [address] [place] [address] Dr. Do Aguilar HPV Genotype Reflex Comment Normal [facility] Comment on above: Result Comment: Crit eria not met, HPV Genotype not performed. Performed at: WB Performed By: #### 4 [id number] #### [facility] [address] [place] [address] Dr. Do Aguilar Methodology: Comment Normal [facility] Comment on above: Result Comment: This liquid based ThinPrep(R) pap test was screened with the use of an image guided system. Performed at: WB Performed By: #### 4 [id number] #### [facility] [address] [place] [address] Dr. Do Aguilar Note: Comment Normal [facility] Comment on above: Result Comment: The Pap smear is a screening test designed to aid in the detection of premalignant and malignant conditions of the uterine cervix. It is not a diagnostic procedure and should not be used as the sole means of detecting cervical cancer. Both false-positive and false-negative reports do occur. . Performed at: WB Performed By: #### 4 [id number] #### [facility] [address] [place] [address] Dr. Do Aguilar Performed by: Comment Normal [facility] Comment on above: Result Comment: Melissa Ramachandran, Manager Program Management (ASCP) Performed at: WB Performed By: #### 4 [id number] #### [facility] [address] [place] [address] Dr. Do Aguilar Specimen adequacy: Comment Normal [facility] Comment on above: Result Comment: Sati sfactory for evaluation. Endocervical and/or squamous metaplastic cells (endocervical component) are present. Performed at: WB Performed By: #### 4 [id number] #### [facility] [address] [place] [address] Dr. Do Aguilar HEPATITIS C AB CASCADE TO QU ANT PCR GENOon 02-18-2022 HCV AB <0.1 Normal 0.0-0.9 [facility] Comment on above: Performed By: #### H EPCASC #### [facility] [address] [address] [address] Do Aguilar Interpretation: Comment Normal [facility] Comment on above: Result Comment: Nega tive Not infected with HCV, unless recent infection is suspected or other evidence exists to indicate HCV infection. Performed By: #### H EPCASC #### [facility] [address] [address] [address] Do Aguilar LIVER PROFILEon 02-17-2022 Albumin [Mass/Vol] 3.6 g/dL Normal 3.4-5.0 [facility] Comment on above: Performed By: #### L IVER #### [facility] [address] [place] [address] Dr. Do Aguilar Albumin/Globulin [Mass ratio] 0.9 {ratio} Normal [facility] Comment on above: Performed By: #### L IVER #### [facility] [address] [place] [address] Dr. Do Aguilar ALP [Catalytic activity/Vol] 79 U/L Normal 46-116 [facility] Comment on above: Performed By: #### L IVER #### [facility] [address] [place] [address] Dr. Do Aguilar ALT [Catalytic activity/Vol] 51 U/L Normal 14-59 [facility] Comment on above: Performed By: #### L IVER #### [facility] [address] [place] [address] Dr. Do Aguilar AST [Catalytic activity/Vol] 33 U/L Normal 15-37 [facility] Comment on above: Performed By: #### L IVER #### [facility] [address] [place] [address] Dr. Do Aguilar BILI, CONJUGATED 0.1 mg/dL Normal 0.0-0.2 [facility] Comment on above: Performed By: #### L IVER #### [facility] [address] [place] [address] Dr. Do Aguilar Bilirubin [Mass/Vol] 0.3 mg/dL Normal 0.2-1.0 [facility] Comment on above: Performed By: #### L IVER #### [facility] [address] [address] [address] Do Aguilar Globulin (S) [Mass/Vol] 4.2 g/dL Normal [facility] Comment on above: Performed By: #### L IVER #### [facility] [address] [address] [address] Do Aguilar Protein [Mass/Vol] 7.8 g/dL Normal 6.4-8.2 [facility] Comment on above: Performed By: #### L IVER #### [facility] [address] [address] [address] Do Aguilar TSHon 02-17-2022 TSH 0.457 uIU/mL Normal 0.358-3.740 [facility] Comment on above: Performed By: #### T SH #### [facility] [address] [address] [address] Do Aguilar VITAMIN B12on 02-17-2022 Cobalamin (Vitamin B12) [Mass/Vol] 1864.0 pg/mL Critically high 193.0-986.0 [facility] Comment on above: Performed By: #### V ITB12 #### [facility] [address] [place] [address] Dr. Do Aguilar History and Physicalon 12-04 History and Physical [id number]#1.00[facility] Operative Report - Surgeon/P godwin 12-04-2016 Operative Report - Surgeon/Physician [id number]#1.[facility] Coding Summaryon 11-26-2016 Coding Summary CODING DATE: 017 [facility] STATUS: Home PAYOR: Medicaid HMO ADMIT DX: REASON FOR VISIT DX: R10.13 Epigastric pain R10.11 Right upper quadrant pain FINAL DX: PRINCIPAL: K29.70 Gastritis, unspecified, without bleeding SECONDARY: PROCEDURES DOCTOR NAME DATE 82240 Esophagogastroduodenoscopy, Juan Ramon Jean MD 11/21/2016 flexible, transoral; with biopsy, single or multiple NOTE: The code number assigned matches the documented diagnosis and / or procedure in the patient's chart. However, the narrative phrase printed from the coding software may appear abbreviated, or result in slightly different terminology. Coded By: Rosalba Laureano Date Saved: 11/26/2016 01:09 pm [facility] Consent Formson 11-24-2016 Consent Forms [id number]#1.00[facility] Intraoperative [facility] 2016 Intraoperative Note [id number]#1.00[facility] Intraoperative Note [id number]#1.00OT[facility] Operative Report - Surgeon/P godwin 11-24-2016 Operative Report - Surgeon/Physician DATE OF PROCEDURE: 11/21/2016PREOPERATIVE DIAGNOSIS: Epigastric pain/right upper quadrant pain.POSTOPERATIVE DIAGNOSIS: Moderate gastritis.PROCEDURE PERFORMED: EGD with biopsy x1 from the antrum of the stomach forH. pylori testing.SURGEON: Juan Ramon Jean M.D.ANESTHESIA: Conscious sedation with Versed 6 mg IV, Demerol 50 mg IV.FINDINGS: As above.DISPOSITION: To [facility] in fair condition.INDICATIONS: The patient is a 36-year-old woman who has undergone alaparoscopic cholecystectomy several months ago. She is having epigastricpain. She presents for an EGD.PROCEDURE: The patient was brought into the endoscopy suite and placed inthe left lateral decubitus position. She was sedated with Versed andDemerol. A bite block was placed in her mouth. The gastroscope waslubricated and advanced through the bite block into the oropharynx and downthe esophagus. There was no evidence of any strictures of lesions. Uponentering the stomach, the gastric mucosa was moderately inflamed especiallyin the antrum of the stomach. The endoscope was advanced through the pylorusand into the duodenum. The duodenal bulb and sweep appeared normal. Thescope was then removed and the biopsy from the antrum of the stomach wasobtained for H. pylori testing. Hemostasis was evident. There was noevidence of any gastric or esophageal varices. The patient tolerated theprocedures without any difficulties. She will follow-up with me in two weeks.Juan Ramon Jean M.D.JOB #: [id number]: 11/21/2016T: 11/21/2016[Electronically Signed on: 12/03/2016 07:09 EDT] Juan Ramon Jean MD Generated Domain User for [id number][Verified on: 12/03/2016 07:09 EDT] Juan Ramon Jean MD[Transcribed on: 11/21/2016 11:37 EDT]GDU [facility] Telemetry Stripson 7 Telemetry Strips [id number]#[id number] [facility] Telemetry Strips [id number]#1.00OTGTIFF [facility] H. Pylori Gastricon 11-22-19 17 H. Pylori Rico Int Ctrl Pass [facility] Comment on above: Order Comment: H. (A NTRUM) Result Comment: Pass Performed By: #### 2 [id number] ####[facility] (DEFAULT)[address] [place] [address] H. Pylori Gastric Negative Normal Negative [facility] Comment on above: Order Comment: H. (A NTRUM) Result Comment: Nega tive Performed By: #### [id number] ####[facility] (DEFAULT)[address] [place] [address] Inpatient Clinical Summaryon 11-21-2016 Inpatient Clinical Summary [facility] SURGERYClinical Discharge SummaryPERSON INFORMATIONName PEE SR Age 36 Years 80Sex FEMALE Language Cypriot PCP HAZEL, DAVIDMarital Status Med Service Ambulatory SurgeryMRN [id number] Acct# Arrival 11/21/16 07:22:21Visit Reason EGD - EPIGASTRIC ABDOMINAL PAIN Acuity LOS 013 23:19Address:[address] [place] [id number]:PROVIDER INFORMATIONVITALS INFORMATIONVital Sign Triage LatestTemp OralTemp Temporal 36.4 DegC 36.4 DegCTemp IntravascularTemp AxillaryTemp Cugsmk71 Sat 100 % 97 %Respiratory Rate 16 br/min 16 br/minPeripheral Pulse Rate 81 bpm 95 bpmApical Heart RateBlood Pressure 122 mmHg / 68 mmHg 110 mmHg / 53 mmHgComment:MEDICAL INFORMATIONAllergy Info:CeleXA; KeflexPrescriptions Given:Home Meds Displayalbuterol (Ventolin HFA 90 mcg/inh inhalation aerosol) 2 puff(s), INH, q4hr, PRN: for wheezing, # 18 gm, 0 Refill(s)cetirizine (cetirizine 10 mg oral tablet) 1 tab(s) ( 10 mg ), PO, Daily, PRN: for allergy symptoms, # 10 tab(s), 0 Refill(s)cyclobenzaprine (THP Cyclobenzaprine TAB 10mg (Flexeril)) 1 tab(s), PO, TID, PRN: for spasm, # 30 tab(s), 0 Refill(s)FLUoxetine (PROzac 20 mg oral capsule) 1 cap(s) ( 20 mg ), PO, Daily, 0 Refill(s)FLUoxetine (PROzac 40 mg oral capsule) 1 cap(s) ( 40 mg ), PO, Daily, 0 Refill(s)naproxen (naproxen 500 mg oral tablet) 1 tab(s) ( 500 mg ), PO, BID, PRN: for pain, # 20 tab(s), 0 Refill(s)omeprazole (omeprazole 20 mg oral delayed release capsule) 1 cap(s) ( 20 mg ), PO, BID, # 90 cap(s), 0 Refill(s)Medication List:Continue These Medications:albuterol (Ventolin HFA 90 mcg/inh inhalation aerosol) 2 puff(s) Inhalation Every 4 hours as needed for for wheezingcetirizine (cetirizine 10 mg oral tablet) 10 mg Oral every day as needed for for allergy symptomscyclobenzaprine (THP Cyclobenzaprine TAB 10mg (Flexeril)) 1 tab(s) Oral 3 times a day as needed for for spasmFLUoxetine (PROzac 20 mg oral capsule) 20 mg Oral every dayFLUoxetine (PROzac 40 mg oral capsule) 40 mg Oral every daynaproxen (naproxen 500 mg oral tablet) 500 mg Oral 2 times a day as needed for for painomeprazole (omeprazole 20 mg oral delayed release capsule) 20 mg Oral 2 times a dayComment:Lab and Radiology ResultsLaboratory or Other Results This Visit (last charted value for your 11/21/2016 visit) Chemistry 11/21/2016 7:44 AM U Preg: NegativeDIET & ACTIVITYPatient Activity Level:As ToleratedPatient Diet:RegularPatient Activity Restrictions:No drivingDISCHARGE INFORMATIONDischarge Disposition:Discharge Location:DEPART REASON INCOMPLETE INFORMATIONPATIENT EDUCATION INFORMATIONInstructions:Fol low up:With: Address: When:Juan Ramon Jean [address] [phone] Business (1) Within 2 to 4 weeksComments:Call for follow up appointmentWith: Address: When:DOMENICA OLIVA [address] [place], [place] [phone] Business (1)DIAGNOSISAcute gastritisComment:PHYS DOC NOTES Normal [facility] Inpatient Patient Summaryon 11-21-2016 [place] [address] patient Discharge InstructionsName: BRENDON SR: 80 Address: [address] [place] [address] Care Provider:Name: DOMENICA OLIVAPhone: Discharge Diagnosis: Acute gastritisIf you received any narcotics, sedation, or any other medication that causes drowsiness for the next 24 hours, unless otherwise directed:? Do not drive a car.? Do not operate machinery such as power tools, lawn mowers, drills, sewing machines, or stoves? Avoid alcoholic beverages and drugs for allergies, nerves, or sleep? Do not make important personal or business decisions or sign any legal documentsK[facility]tering Health [facility] would like to thank you for allowing us to assist you with your healthcare needs. The following includes patient education materials and information regarding your injury/illness.PEE SR has been given the following list of follow-up instructions, prescriptions, and patient education materials:Follow-up InstructionsWith: Address: When:Juan Ramon Jean [address] [phone] Business (1) Within 2 to 4 weeksComments:Call for follow up appointmentWith: Address: When:DOMENICA OLIVA [address] [phone] Business (1)MedicationsDuring the course of your visit, your medication list was updated with the most current information. The details of those changes are reflected below:Medications to Continue That Have Not ChangedOther Medicationsalbuterol (Ventolin HFA 90 mcg/inh inhalation aerosol) 2 puff(s) Inhalation Every 4 hours as needed for wheezing.cetirizine (cetirizine 10 mg oral tablet) 1 tab(s) Oral every day as needed for allergy symptoms.cyclobenzaprine (THP Cyclobenzaprine TAB 10mg (Flexeril)) 1 tab(s) Oral 3 times a day as needed for spasm.FLUoxetine (PROzac 20 mg oral capsule) 1 cap Oral every day.FLUoxetine (PROzac 40 mg oral capsule) 1 cap Oral every day.naproxen (naproxen 500 mg oral tablet) 1 tab(s) Oral 2 times a day as needed for pain.omeprazole (omeprazole 20 mg oral delayed release capsule) 1 cap Oral 2 times a day.It is important to always keep an active list of medications available so that you can share with other providers and manage your medications appropriately. As an additional courtesy, we are also providing you with your final active medications list that you can keep with you.albuterol (Ventolin HFA 90 mcg/inh inhalation aerosol) 2 puff(s) Inhalation Every 4 hours as needed for wheezing.cetirizine (cetirizine 10 mg oral tablet) 1 tab(s) Oral every day as needed for allergy symptoms.cyclobenzaprine (THP Cyclobenzaprine TAB 10mg (Flexeril)) 1 tab(s) Oral 3 times a day as needed for spasm.FLUoxetine (PROzac 20 mg oral capsule) 1 cap Oral every day.FLUoxetine (PROzac 40 mg oral capsule) 1 cap Oral every day.naproxen (naproxen 500 mg oral tablet) 1 tab(s) Oral 2 times a day as needed for pain.omeprazole (omeprazole 20 mg oral delayed release capsule) 1 cap Oral 2 times a day.Take only the medications listed above. Contact your doctor prior to taking any medications not on this list.Diet & ActivityPatient Activity Level: As ToleratedPatient Diet: RegularPatient Activity Restrictions: No drivingComment:Patient education materials, if any, will display below Viruses or BacteriaWhat?s got you sick?Antibiotics only treat bacterial infections. Viral illnesses cannot be treated with antibiotics. When an antibiotic is not prescribed, ask your healthcare professional for tips on how to relieve symptoms and feel better. Usual CauseIllnessVirusesBacteria Antibiotic NeededCold/Runny Nose NOBronchitis/Chest Cold (in otherwise healthy children and adults) NOWhooping Cough YesFlu NOStrep Throat YesSore Throat (except strep) NOFluid in the middle ear (otitis media with effusion) NOUrinary Tract Infection YesAntibiotics Aren?t Always the Answerwww.cdc.gov/getsmart GET SMART Know When Antibiotics Ebony.[place] Department of Health and Human ServicesCenters for Disease Control and Prevention October 2013 [facility] MAGR Endo Intraoperative Rec ordon 11-21-2016 MAGR Endo Intraoperative Record MAGR Endo Intra-Op Record Summary Primary Physician: Juan Ramon Jean MD Finalized Date/Time: 11/21/16 08:37:38 Pt. Name: PEE SR/Sex: 1980 FEMALE Med Rec #: [id number] Physician: Juan Ramon Jean MD Financial #: [id number] Pt. 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 Time In 11/21/16 08:06:00 11/21/16 08:06:00 11/21/16 08:06:00 Time Out 11/21/16 08:23:00 11/21/16 08:23:00 11/21/16 08:23:00 Procedure Esophagogastroduodenosco Esophagogastroduodenosco Esophagogastroduodenosco py py py Last Modified By: Robyn Castillo Debra L Barone, Debra L 11/21/16 08:23:47 11/21/16 08:23:47 11/21/16 08:23:47 Entry 4 Case Attendee Adela Lance RN Role Performed Scrub Personnel Time In 11/21/16 08:06:00 Time Out 11/21/16 08:23:00 Procedure Esophagogastroduodenosco py Last Modified By: Robyn Castillo 11/21/16 08:23:47 Surgical Procedures EN MAGR Pre-Care Text: A.20 Verifies operative procedure, surgical site, and laterality Im.150 Develops individualized plan of care Entry 1 Procedure Esophagogastroduodenosco Primary Procedure Yes py Primary Surgeon Juan Ramon Jean MD Surgeon Comment EGD - EPIGASTRIC ABDOMINAL PAIN Start 11/21/16 08:15:00 Stop 11/21/16 08:18:00 Anesthesia Type Conscious Sedation Surgical Service Gastroenterology Wound Class Clean-Contaminated Last Modified By: Robyn Castillo 11/21/16 08:24:20 Post-Care Text: O.730 The patient's care is consistent with the individualized perioperative plan of care General Case Data EN MAGR Pre-Care Text: A.350.1 Classifies surgical wound Entry 1 Case Information OR MAGR Endo Room Case Level Level 3 Wound Class Clean-Contaminated Specialty Gastroenterology ASA Class N/A Diagnosis Preop Diagnosis EPIGASTRIC ABDOMINAL Postop Same As Preop No PAIN Postop Diagnosis gastritis Last Modified By: Robyn Castillo 11/21/16 08:25:12 Post-Care Text: O.760 Patient receives consistent and comparable care regardless of the setting Time Out EN MAGR Entry 1 Time out date/time 11/21/16 08:07:00 All team members Yes have introduced themselves by name and role Surgeon, Yes Surgeon reviews No anesthesia, nurse critical or confirm patient, unexpected steps, site, procedure operative duration, anticipated blood loss Anesthesia team No Nursing team Yes reviews any reviews sterility patient-specific (including concerns indicator results) and equipment issues/concerns Antibiotic N/A Is essential Yes prophylaxis given imaging displayed? within the last 60 minutes Last Modified By: Robyn Castillo 11/21/16 08:07:47 Patient Positioning EN MAGR Pre-Care Text: A.280 Identifies baseline musculoskeletal status Im.40 Positions the patient Im.80 Applies safety devices Entry 1 Procedure Esophagogastroduodenosco Body Position Other/See comments py Left Arm Position Resting at Side Right Arm Position Resting at Side Left Leg Position Extended Right Leg Position Extended Feet Uncrossed? Yes Press Points Checked Yes Additional lateral right side up Positioning Device Pillow Information Outcome Met (O.80) Yes Last Modified By: Robyn Castillo 11/21/16 07:42:49 Post-Care Text: E.290 Evaluates musculoskeletal status O.80 Patient is free from signs and symptoms of injury related to positioning Cultures and Specimens EN MAGR Pre-Care Text: A.350 Assesses susceptibility for infection A.10 Confirms patient identity Im.320 Manages culture specimen collection Im.330 Manages specimen handling and disposition Entry 1 Cultures Ordered No Specimens Ordered Yes Outcome Met (O.40) Yes Last Modified By: Robyn Castillo 11/21/16 08:24:07 Post-Care Text: E.40 Evaluates correct processes have been performed for specimen handling and disposition O.40 Patient's specimen(s) is managed in the appropriate manner Communication EN MAGR Pre-Care Text: A.520 Identifies barriers to communication (Patient and Family Communications) A.20 Verifies operative procedure, surgical site, and laterality (Hand-off Communications) Im.500 Provides status reports to family members Im.150 Develops individualized plan of care Entry 1 Communication Face to face Communication By Alaina Porter RN Date and Time 11/21/16 08:23:00 Outcome Met (0.50) Yes Last Modified By: Robyn Castillo 11/21/16 08:23:58 Post-Care Text: E.520 Evaluates psychosocial response to plan of care E.800 Ensures continuity of care O.500 Patient or designated support person demonstrates knowledge of the expected psychosocial responses to the procedure O.50 Patient's current status is communicated throughout the continuum of care Case Comments Finalized By: Robyn Castillo Document Signatures Signed By: Robyn Castillo 11/21/16 08:26 Robyn Castillo 11/21/16 08:37 Unfinalized History Date/Time Username Reason for Unfinalizing Freetext Reason for Unfinalizing 11/21/16 08:37 [facility] Mod[facility] Pick List Normal [facility] MAGR Endo Postoperative Benjamin rdon 11-21-2016 MAGR Endo Postoperative Record MAGR Endo Phase II Record Summary Primary Physician: Juan Ramon Jean MD Finalized Date/Time: 11/21/16 10:02:07 Pt. Name: PEE SR/Sex: 1980 FEMALE Med Rec #: [id number] Physician: Juan Ramon Jean MD Financial #: [id number] Pt. Type: D Room/Bed: / Admit/Disch: 11/21/16 07:22:21 - Institution: Phase II Case Times EN MAGR Pre-Care Text: Patient is free from s/s of injury. Patient remains free from compromised physical state related to surgery or anesthesia. Patient comfort maintained. Patient/family verbalize understanding of discharge instructions. Entry 1 In PACU II 11/21/16 08:25:00 Discharge from PACU 11/21/16 09:45:00 II Last Modified By: Cammy Barroso RN 11/21/16 10:02:02 Post-Care Text: The patient remains free from s/s of injury. Patient's vital signs stable, circulation maintained, return to preop mental and physical status, opsite/dressing intact, minimal or absent nausea and vomiting, tolerates po intake. Patient verbalizes adequate pain control. Patient/family express understanding of discharge instructions. General Comments: Pt arrives per cart accompanied by Martine Porter RN, report given. Pt drowsy but arousable. Color good, skin dry and warm. Resp reg., nonlabored. 0900 H2O and OJ given per req. Then pt insists on laying back down for a power nap . Instructed pt not to cross legs, pt states I have to because of my back problems. 919 Disch instructions reviewed with pt and girlfriend, verbalized understanding. Copy of instructions given to pt. Pt states she'll have to do cooking tonight because she has 5 kids-reminded again what is stated in disch. instructions. 929 Assisted up to BR to vd qs. Enc to C&DB, does effectively. IV discont, bleeding controlled. Pt dressing. 944 Disch per W/C to private car. Finalized By: Cammy Barroso RN Document Signatures Signed By: Cammy Barroso RN 11/21/16 10:02 [facility] MAGR Endo Preoperative Recor don 11-21-2016 MAGR Endo Preoperative Record MAGR Endo Pre-Op Record Summary Primary Physician: Juan Ramon Jean MD Finalized Date/Time: 11/21/16 08:27:58 Pt. Name: ROSE GUTIERREZPEE/Sex: 1980 FEMALE Med Rec #: [id number] Physician: Juan Ramon Jean MD Financial #: [id number] Pt. Type: D Room/Bed: / Admit/Disch: 11/21/16 07:22:21 - Institution: Pre-Op Case Times EN MAGR Pre-Care Text: Patient will be optimally prepared for surgery. Patient is free from s/s of injury. Provide information to patient/family related to plan of care. Verify patient allergies. Confirm identity and verify consent before the operative or invasive procedure. Entry 1 Patient Arrival Time 11/21/16 07:35:00 Preop Departure 11/21/16 08:00:00 Last Modified By: Cammy Braroso RN 11/21/16 08:27:57 Post-Care Text: Patient is prepared mentally and physically and is ready for surgery. The patient remains free from s/s of injury. Patient/family express understanding of plan of care and participate in decisions affecting his or her perioperrative plan of care. Allergies documented appropriately. Patient identifiers and consent correct. General Comments: Pt arrive per amb. Pt denies any CP, SOB, pacemaker/defib., Hx of S/S of flu, or sleep apnea. Pt C/O RUQ pain rating 7-8 Finalized By: Cammy Barroso RN Document Signatures Signed By: Cammy Barroso RN 11/21/16 08:27 [facility] Test Urine 1on U Preg Negative [facility] Comment on above: Result Comment: Nega tive Performed By: #### [id number] ####[facility] (DEFAULT)[address] [place] [address] U Preg Internal Control Pass [facility] Comment on above: Result Comment: Pass Performed By: #### [id number] ####[facility] (DEFAULT)[address] [place] [id number] Vital Signs Date Time Vital Sign Value Performing Clinician Facility 03-18-2023 11:30-0500 Diastolic blood pressure 84 mm[Hg] MD Yo Blank Work Phone: [facility] 03-18-2023 11:30-0500 Heart rate 95 /min MD Yo Blank Work Phone: [facility] 03-18-2023 11:30-0500 Respiratory rate 16 /min MD Yo Blank Work Phone: [facility] 03-18-2023 11:30-0500 SaO2% (BldA) [Mass fraction] 99 % MD Yo Blank Work Phone: [facility] 03-18-2023 11:30-0500 Systolic blood pressure 123 mm[Hg] MD Yo Blank Work Phone: [facility] 03-05-2023 09:15-0500 Body height 160.02 cm Gayathri Adams Other [employer] [facility] Other 03-05-2023 09:15-0500 Body mass index (BMI) [Ratio] 37.57 kg/m2 Gayathri Scally Other [employer] Other 03-05-2023 09:15-0500 Body weight 96.21 kg Gayathri Scally Other [employer] [facility] Other 03-05-2023 09:15-0500 Diastolic blood pressure 89 mm[Hg] Gayathri Scally Other [employer] Other 03-05-2023 09:15-0500 Respiratory rate 18 /min Gayathri Scally Other [employer] Other 03-05-2023 09:15-0500 SaO2% (BldA) [Mass fraction] 96 % Gayathri Scally Other [employer] Other 03-05-2023 09:15-0500 Systolic blood pressure 122 mm[Hg] Gayathri Scally Other [employer] Other 03-02-2023 19:24-0500 Body height 160 cm Sil France DO Work Phone: [employer] 03-02-2023 19:24-0500 Body mass index (BMI) [Ratio] 36.31 kg/m2 Sil France DO Work Phone: [employer] 03-02-2023 19:24-0500 Body temperature 98.29 [degF] Sil France DO Work Phone: [employer] 03-02-2023 19:24-0500 Body weight 92.99 kg Sil France DO Work Phone: [employer] 03-02-2023 19:24-0500 Diastolic blood pressure 98 mm[Hg] Sil France DO Work Phone: [employer] 03-02-2023 19:24-0500 Heart rate 82 /min Sil France DO Work Phone: [employer] 03-02-2023 19:24-0500 Respiratory rate 18 /min Sil France DO Work Phone: [employer] 03-02-2023 19:24-0500 SaO2% (BldA) [Mass fraction] 98 % Sil France DO Work Phone: [employer] 03-02-2023 19:24-0500 Systolic blood pressure 139 mm[Hg] Sil France DO Work Phone: [employer] 02-05-2023 09:20-0500 Body height 160.02 cm Jan Garg Other [employer] Other 02-05-2023 09:20-0500 Body mass index (BMI) [Ratio] 36.66 kg/m2 Jan Garg Other [employer] Other 02-05-2023 09:20-0500 Body weight 93.9 kg Jan Garg Other [employer] Other 01-15-2023 09:45-0500 Body height 160.02 cm Gayathri Scally Other [employer] Other 01-15-2023 09:45-0500 Body mass index (BMI) [Ratio] 36.68 kg/m2 Gayathri Scally Other [employer] Other 01-15-2023 09:45-0500 Body weight 93.94 kg Gayathri Scally Other [employer] Other 01-15-2023 09:45-0500 Diastolic blood pressure 83 mm[Hg] Gayathri Scally Other [employer] Other 01-15-2023 09:45-0500 Respiratory rate 18 /min Gayathri Brooklynly Other [employer] Other 01-15-2023 09:45-0500 SaO2% (BldA) [Mass fraction] 99 % Gayathri Scally Other [employer] Other 01-15-2023 09:45-0500 Systolic blood pressure 119 mm[Hg] Gayathri Scally Other [employer] Other 01-07-2023 10:00-0500 Body height 160.02 cm Jan Garg Other [employer] Other 01-07-2023 10:00-0500 Body mass index (BMI) [Ratio] 36.13 kg/m2 Jan Billovanner Other [employer] Other 01-07-2023 10:00-0500 Body weight 92.53 kg Jan Garg Other [employer] Other 01-07-2023 10:00-0500 Diastolic blood pressure 74 mm[Hg] Jan Scovanner Other [employer] Other 01-07-2023 10:00-0500 Systolic blood pressure 118 mm[Hg] Jan Scovanner Other [employer] Other 08-28-2022 09:00-0400 Body height 160.02 cm Tamar Sosa Other [employer] Other 08-28-2022 09:00-0400 Body mass index (BMI) [Ratio] 35.8 kg/m2 Tamar Fitt Other [employer] Other 08-28-2022 09:00-0400 Body weight 91.67 kg Tamar Fitt Other [employer] Other 07-29-2022 10:15-0400 Body height 160.02 cm Gayathri Scally Other [employer] Other 07-29-2022 10:15-0400 Body mass index (BMI) [Ratio] 35.18 kg/m2 Gayathri Scally Other [employer] Other 07-29-2022 10:15-0400 Body weight 90.08 kg Gayathri Scally Other [employer] Other 07-29-2022 10:15-0400 Diastolic blood pressure 84 mm[Hg] Gayathri Scally Other [employer] Other 07-29-2022 10:15-0400 Respiratory rate 18 /min Gayathri Scally Other [employer] Other 07-29-2022 10:15-0400 SaO2% (BldA) [Mass fraction] 99 % Gayathri Scally Other [employer] Other 07-29-2022 10:15-0400 Systolic blood pressure 127 mm[Hg] Gayathri Scally Other [employer] Other 05-20-2022 11:15-0400 Body height 160.02 cm Gayathri Scally Other [employer] Other 05-20-2022 11:15-0400 Body mass index (BMI) [Ratio] 34.52 kg/m2 Gayathri Scally Other [employer] Other 05-20-2022 11:15-0400 Body weight 88.41 kg Gayathri Scally Other [employer] Other 05-20-2022 11:15-0400 Diastolic blood pressure 82 mm[Hg] Gayathri Scally Other [employer] Other 05-20-2022 11:15-0400 Respiratory rate 18 /min Gayathri Scally Other [employer] Other 05-20-2022 11:15-0400 SaO2% (BldA) [Mass fraction] 97 % Gayathri Scally Other [employer] Other 05-20-2022 11:15-0400 Systolic blood pressure 121 mm[Hg] Gayathri Scally Other [employer] Other 04-08-2022 11:15-0500 Body height 160.02 cm Gayathri Scally Other [employer] Other 04-08-2022 11:15-0500 Body mass index (BMI) [Ratio] 34.49 kg/m2 Gayathri Scally Other [employer] Other 04-08-2022 11:15-0500 Body weight 88.32 kg Gayathri Scally Other [employer] Other 04-08-2022 11:15-0500 Diastolic blood pressure 77 mm[Hg] Gayathri Scally Other [employer] Other 04-08-2022 11:15-0500 Respiratory rate 18 /min Gayathri Scally Other [employer] Other 04-08-2022 11:15-0500 SaO2% (BldA) [Mass fraction] 98 % Gayathri Scally Other [employer] Other 04-08-2022 11:15-0500 Systolic blood pressure 110 mm[Hg] Gayathri Scally Other [employer] Other 04-08-2022 10:15-0500 Body height 160.02 cm Tamar Fitt Other [employer] Other 04-08-2022 10:15-0500 Body mass index (BMI) [Ratio] 34.49 kg/m2 Tamar Fitt Other [employer] Other 04-08-2022 10:15-0500 Body weight 88.32 kg Tamar Fitt Other [employer] Other 02-26-2022 10:00-0500 Body height 160.02 cm Tamar Fitt Other [employer] Other 02-25-2022 11:45-0500 Body height 160.02 cm Gayathri Scally Other [employer] Other 02-25-2022 11:45-0500 Body mass index (BMI) [Ratio] 36.63 kg/m2 Gayathri Scally Other [employer] Other 02-25-2022 11:45-0500 Body weight 93.8 kg Gayathri Scally Other [employer] Other 02-25-2022 11:45-0500 Diastolic blood pressure 78 mm[Hg] Gayathri Scally Other [employer] Other 02-25-2022 11:45-0500 Respiratory rate 18 /min Gayathri Scally Other [employer] Other 02-25-2022 11:45-0500 SaO2% (BldA) [Mass fraction] 97 % Gayathri Scally Other [employer] Other 02-25-2022 11:45-0500 Systolic blood pressure 109 mm[Hg] Gayathri Scally Other [employer] Other 01-14-2022 11:45-0500 Body height 160.02 cm Gayathri Scally Other [employer] Other 01-14-2022 11:45-0500 Body mass index (BMI) [Ratio] 39.37 kg/m2 Gayathri Scally Other [employer] Other 01-14-2022 11:45-0500 Body weight 100.84 kg Gayathri Scally Other [employer] Other 01-14-2022 11:45-0500 Diastolic blood pressure 88 mm[Hg] Gayathri Scally Other [employer] Other 01-14-2022 11:45-0500 Respiratory rate 18 /min Gayathri Scally Other [employer] Other 01-14-2022 11:45-0500 SaO2% (BldA) [Mass fraction] 97 % Gayathri Scally Other [employer] Other 01-14-2022 11:45-0500 Systolic blood pressure 124 mm[Hg] Gayathri Scally Other [employer] Other 12-04-2021 12:00-0400 Body height 160.02 cm Gayathri Scally Other [employer] Other 12-04-2021 12:00-0400 Body mass index (BMI) [Ratio] 39.73 kg/m2 Gayathri Scally Other [employer] Other 12-04-2021 12:00-0400 Body weight 101.74 kg Gayathri Scally Other [employer] Other 12-04-2021 12:00-0400 Diastolic blood pressure 74 mm[Hg] Gayathri Scally Other [employer] Other 12-04-2021 12:00-0400 Respiratory rate 18 /min Gayathri Scally Other [employer] Other 12-04-2021 12:00-0400 SaO2% (BldA) [Mass fraction] 95 % Gayathri Scally Other [employer] Other 12-04-2021 12:00-0400 Systolic blood pressure 110 mm[Hg] Gayathri Scally Other [employer] Other 10-29-2021 11:30-0400 Body height 160.02 cm Yo Blank Other [employer] Other 10-29-2021 11:30-0400 Body mass index (BMI) [Ratio] 38.61 kg/m2 Yo Blank Other [employer] Other 10-29-2021 11:30-0400 Body weight 98.88 kg Yo Blank Other [employer] Other 10-29-2021 11:30-0400 Diastolic blood pressure 74 mm[Hg] Yo Blank Other [employer] Other 10-29-2021 11:30-0400 Systolic blood pressure 111 mm[Hg] Yo Blank Other [employer] Other 10-22-2021 13:26-0400 Body temperature 97.2 [degF] Shawna Rumschlag DO Work Phone: [employer] 10-22-2021 13:26-0400 Diastolic blood pressure 71 mm[Hg] Shawna Rumschlag DO Work Phone: [employer] 10-22-2021 13:26-0400 Heart rate 85 /min Shawna Rumschlag DO Work Phone: [employer] 10-22-2021 13:26-0400 Respiratory rate 16 /min Shawna Rumschlag DO Work Phone: [employer] 10-22-2021 13:26-0400 SaO2% (BldA) [Mass fraction] 94 % Shawna Rumschlag DO Work Phone: [employer] 10-22-2021 13:26-0400 Systolic blood pressure 131 mm[Hg] Shawna Rumschlag DO Work Phone: [employer] 10-11-2021 23:48-0400 Body height 160 cm Daniel Adkins MD Work Phone: [employer] 10-11-2021 23:48-0400 Body mass index (BMI) [Ratio] 36.67 kg/m2 Daniel Adkins MD Work Phone: [employer] 10-11-2021 23:48-0400 Body temperature 98.6 [degF] Daniel Adkins MD Work Phone: [employer] 10-11-2021 23:48-0400 Body weight 93.89 kg Daniel Adkins MD Work Phone: [employer] 10-11-2021 23:48-0400 Diastolic blood pressure 88 mm[Hg] Daniel Adkins MD Work Phone: [employer] 10-11-2021 23:48-0400 Heart rate 97 /min Daniel Adkins MD Work Phone: [employer] 10-11-2021 23:48-0400 Respiratory rate 16 /min Daniel Adkins MD Work Phone: [employer] 10-11-2021 23:48-0400 SaO2% (BldA) [Mass fraction] 96 % Daniel Adkins MD Work Phone: [employer] 10-11-2021 23:48-0400 Systolic blood pressure 134 mm[Hg] Danile Adkins MD Work Phone: [employer] Encounters Encounter Date Encounter Type Care Provider Facility Start: 03-24-2023 End: 03-25-2023 ambulatory [facility] Start: 03-19-2023 End: 03-19-2023 ambulatory GABY Churchill SHAYLEE Not Available Start: 03-18-2023 Telephone encounter Jan [facility] Start: 03-18-2023 End: 03-18-2023 ambulatory NON STAFF Facility:[facility] Start: 03-18-2023 Non-patient / Non-visit MD Yo Blank Work Phone: [facility] Work Phone: Start: 03-17-2023 End: 03-17-2023 ambulatory Jan Garg Other [facility] [employer] Other Start: 03-17-2023 Telephone encounter Jan Peterson [facility] Start: 03-16-2023 Encounter for genera l adult medical examination without abnormal findings [facility] Start: 03-16-2023 End: 03-17-2023 ambulatory [facility] Start: 03-16-2023 End: 03-16-2023 ambulatory LULY ENGLISH Not Available Start: 03-10-2023 End: 03-11-2023 ambulatory [facility] Start: 03-10-2023 End: 03-10-2023 Subsequent hospital visit by physician Tamar Silveira PT [facility] Comment on above: Arrived Start: 03-05-2023 (FCCCWMNF/U) Weight Management f/u Gayathri Adams [facility] Start: 03-05-2023 End: 03-05-2023 ambulatory Yo Blank [facility] [employer] Other Start: 03-05-2023 Registered Recurring MD Monserrat Blank Work Phone: [facility] Work Phone: Start: 03-02-2023 End: 03-02-2023 Emergency department patient visit [facility] Start: 03-02-2023 End: 03-02-2023 Emergency department patient visit Sil France DO Work Phone: [facility] Comment on above: Constipation, unspec ified constipation type (Primary Dx) Start: 02-26-2023 End: 02-26-2023 ambulatory Jan Covingtonner Other [employer] Other Start: 02-26-2023 Telephone encounter Jan Garg [facility] Start: 02-20-2023 Telephone encounter Argenis Storm RN [facility] Comment on above: Medication, DME Start: 02-18-2023 End: 02-18-2023 ambulatory Jan Garg Other [employer] Other Start: 02-18-2023 Telephone encounter Jan Peterson [facility] Start: 02-10-2023 Telephone encounter Margaux Olea CST [facility] Start: 02-05-2023 End: 02-05-2023 ambulatory Jan Garg Other [employer] Other Start: 02-05-2023 Office outpatient visit 15 minutes Jan Britany [facility] Start: 01-15-2023 (FCCCWMNF/U) Weight Management f/u Gayathri Adams [facility] Start: 01-15-2023 End: 01-15-2023 ambulatory Gayathri Adams Other [employer] Other Start: 01-07-2023 End: 01-07-2023 ambulatory Jan Garg Other [employer] Other Start: 01-07-2023 Office outpatient visit 15 minutes Jan Garg [facility] Start: 09-25-2022 End: 01-16-2023 ambulatory MOVIE CRITIC YUE GRANADO Facility:[facility] Start: 09-25-2022 End: 01-15-2023 Recurring YUE GRANADO [facility] Start: 09-17-2022 End: 09-17-2022 ambulatory Gayathri Adams Other [employer] Other Start: 09-17-2022 Telephone encounter Gayathri Peterson [facility] Start: 08-28-2022 ([facility] RD FU) [facility] F/ U [employer] Assistant Tamar Sosa [facility] Start: 08-28-2022 End: 08-28-2022 ambulatory Tamar Sosa Other [employer] Other Start: 07-29-2022 [facility] Weight Management f/u Gayathrikasia Adams [facility] Start: 07-29-2022 End: 07-29-2022 ambulatory Gayathri Adams Other [employer] Other Start: 05-20-2022 [facility] Weight Management f/u Gayathri Adams [facility] Start: 05-20-2022 End: 05-20-2022 ambulatory Gayathri Angie Other [employer] Other Start: 05-19-2022 End: 05-19-[address] ALICIA PRESTON . Facility:[facility] Start: 05-07-2022 End: 05-08-[address] DOCTOR ARREOLA Facility:[facility] Start: 04-09-2022 End: 04-09-2022 ambulatory Gayathrikasia Adams Other [employer] Other Start: 04-09-2022 Telephone encounter Gayathri last [facility] Start: 04-08-2022 ([facility] WMNI) [facility] Initial Provider Tamar Sosa [facility] Start: 04-08-2022 [facility] Weight Management f/u Gayathrikasia Adams [facility] Start: 04-08-2022 End: 04-08-2022 ambulatory Tamar Sosa Other [employer] Other Start: 02-26-2022 End: 02-26-2022 ambulatory Tamar Sosa Other [employer] Other Start: 02-26-2022 IBT FOR OBESITY GROU P 2-10 30M Tamar Ian [facility] Start: 02-25-2022 (FCCCWMNF/U) Weight Management f/u Gayathri Adams [facility] Start: 02-25-2022 End: 02-25-2022 ambulatory Gayathri Adams Other [employer] Other Start: 02-17-2022 End: 02-18-2022 ambulatory LUZ MARIA KIDD Facility:[facility] Start: 01-29-2022 End: 01-30-2022 ambulatory JOY Reis [facility] Facility:[facility] Start: 01-14-2022 (FCCWMNF/U) Weight Management f/u Gayathri Adams [facility] Start: 01-14-2022 End: 01-14-2022 ambulatory Gayathri Adams Other [employer] Other Start: 12-05-2021 End: 12-05-2021 ambulatory Gayathri Adams Other [employer] Other Start: 12-05-2021 Telephone encounter Gayathri Adams [facility] Start: 12-04-2021 End: 12-04-2021 ambulatory Gayathri Adams Other [employer] Other Start: 12-04-2021 Nutrition therapy Gayathri Brooklynludy [facility] Start: 10-29-2021 End: 10-29-2021 ambulatory Yo Blank Other [employer] Other Start: 10-29-2021 Patient encounter procedure Yo Blank [facility] Start: 10-22-2021 End: 10-22-2021 Emergency department patient visit Shawna Dudley DO Work Phone: [facility] Comment on above: Acute diffuse otitis externa of left ear (Primary Dx) Start: 10-11-2021 End: 10-12-2021 Emergency department patient visit Daniel Adkins MD Work Phone: [facility] Comment on above: Pilonidal cyst (Prim romero Dx) Start: 11-21-2016 End: 11-26-2016 Ambulatory Juan Ramon Jean Facility:[facility] Procedures Date Procedure Procedure Detail Performing Clinician Start: 05-02-2020 Adult depression scr eening assessment Argenis Storm RN Start: 08-30-2016 Cholecystectomy YUE LOPEZ МАРИНА Start: 01-03-2013 nasal surgery YUE FRIEDMAN Tonsillectomy YUE GRANADO Plan of Treatment Date Care Activity Detail Author Start: 01-30-2024 Adult BMI Screening Adult BMI Screen ing [facility] Start: 01-30-2024 Tobacco Screening Tobacco Screening [facility] Start: 05-23-2023 Hepatitis B vaccine (3 of 3 - Hep B Twinrix 3-dose series) Hepatitis B vaccine (3 of 3 - Hep B Twinrix 3-dose series) [facility] Start: 05-05-2023 End: 05-05-2023 Patient encounter procedure 05/05/2023 2:30 PM EST Appointment [facility] Physical Therapy [address] [place], [place] [id number] Rebecca Skinner PT DRY NEEDLING [facility] Physical Therapy Comment on above: DRY NEEDLING Start: 05-05-2023 ambulatory Ambulatory [facility] Start: 04-28-2023 End: 04-28-2023 Patient encounter procedure 04/28/2023 10:45 AM EST Office Visit [facility] [address] [place] [phone] Gil Alba PA [address] [place], [place] [phone] [facility] Start: 04-21-2023 End: 04-21-2023 Patient encounter procedure 04/21/2023 2:30 PM EST Appointment [facility] Physical Therapy [address] [place] [address] Rebecca Skinner, PT DRY NEEDLING [facility] Physical Therapy Comment on above: [place] [place] Start: 04-07-2023 End: 04-07-2023 Patient encounter procedure 04/07/2023 2:15 PM EST Appointment [facility] Physical Therapy [address] [place] [address] Rebecca Skinner, PT DRY NEEDLING [facility] Physical Therapy Comment on above: DRY NEEDLING Start: 04-07-2023 ambulatory Ambulatory [facility] Start: 03-27-2023 End: 03-27-2023 Admission to same day surgery center 03/27/2023 1:27 PM EST - 03/27/2023 1:33 PM EST Surgery [facility] [address] [place] [phone] Pete Silver MD [address] [place] [address] INJECTION BLOCK SACROILIAC JOINT [90224 (CPT )] [facility] Comment on above: INJECTION BLOCK SACR OILIAC JOINT [95303 (CPT )] Start: 03-27-2023 End: 03-27-2023 Inject si joint arthrgrphy&/anes/stero id w/monika INJECTION BLOCK SACROILIAC JOINT Disorder of sacrum 03/27/2023 1:27 PM EST [facility] Start: 03-27-2023 Subsequent hospital visit by physician 03/27/2023 1:27 PM EST Hospital Encounter [facility] [address] [place] [phone] Pete Silver MD [address] [facility] [place] [place] [phone] [facility] Start: 03-24-2023 End: 03-24-2023 Patient encounter procedure 03/24/2023 2:15 PM EST Appointment [facility] Physical Therapy [address] [place] [address] Rebecca Skinner, PT DRY NEEDLING [facility] Physical Therapy Comment on above: DRY NEEDLING Start: 03-19-2023 [facility] Start: 03-16-2023 End: 03-16-2023 Patient encounter procedure 03/16/2023 11:45 AM EST Appointment [facility] - Mammogram DEXA [address] [place] [address] [facility]A Start: 03-10-2023 End: 03-10-2023 Patient encounter procedure 03/10/2023 2:30 PM EST Appointment [facility] Physical Therapy [address] [place] [id number] Rebecca Skinner, [place] [facility] Physical Therapy Start: 09-30-2022 Influenza vaccination Flu vaccine (# 1) [facility] Start: 10-31-2021 Influenza vaccination Flu vaccine (# 1) [facility] Start: 09-03-2021 DTaP,Tdap and Td Vaccines (1 - Tdap) DTaP,Tdap and Td Vaccines (1 - Tdap) [facility] Start: 09-03-2021 DTaP/Tdap/Td vaccine (1 - Tdap) DTaP/Tdap/Td vaccine (1 - Tdap) [facility] Start: 05-02-2021 Depression Screening Depression Scre ening [facility] Start: 2020 Lipid panel Lipids [facility] Start: 01-04-2020 Diabetic foot examination Diabetic Foot Exam [facility] Start: 09-25-2015 Diabetes screen Diabetes screen [facility] Start: 2010 Screening for malignant neoplasm of cervix [facility] Start: 2001 Screening for malignant neoplasm of cervix Pap smear [facility] Start: 09-25-1999 DTaP/Tdap/Td vaccine (1 - Tdap) DTaP/Tdap/Td vaccine (1 - Tdap) [facility] Start: 1998 Adult BMI Follow Up Plan Adult BMI Follow Up Plan [facility] Start: 1998 Hepatitis C screening Hepatitis C sc reen [facility] Start: 09-25-1995 HIV screening HIV screen [facility] Start: 1992 Depression Screen Depression Screen [facility] Start: 1981 Varicella vaccine (1 of 2 - 2-dose childhood series) Varicella vaccine (1 of 2 - 2-dose childhood series) [facility] Start: 03-27-1981 COVID-19 Vaccine (#1) COVID-19 Vacci ne (#1) [facility] Start: 1980 Glaucoma screening Diabetic Op hthalmology Exam [facility] Start: 1980 Hepatitis B vaccine (1 of 3 - 3-dose series) Hepatitis B vaccine (1 of 3 - 3-dose series) [facility] Inject si joint arthrgrphy&/anes/stero id w/monika INJECTION BLOCK SACROILIAC JOINT Disorder of sacrum [facility] Immunizations Immunization Date Immunization Notes Care Provider Fa cility 12-19-2018 influenza, injectabl e, quadrivalent, preservative free Argenis Storm RN [facility] 12-02-2017 influenza, injectabl e, quadrivalent, preservative free Argenis Storm RN [facility] 12-02-2017 pneumococcal conjuga te vaccine, 13 valent Argenis Storm RN [facility] 10-10-2016 influenza virus vacc ine, unspecified formulation Argenis Storm RN [facility] 12-19-2013 influenza virus vacc ine, live, attenuated, for intranasal use Argenis Storm RN [facility] 12-03-2012 influenza virus vacc ine, whole virus Argenis Storm RN [facility] 12-29-2011 influenza virus vacc ine, whole virus Argenis Storm RN [facility] 12-23-2010 influenza virus vacc ine, whole virus Argenis Storm RN [facility] 12-18-2008 influenza virus vacc ine, whole virus Argenis Storm RN [facility] Payers Date Payer Category Payer Self-pay [id number] 2002 Medicaid [employer] [id number] 2002-Present [phone] [address] [place] [address] [id number] 1980 Unknown [id number] 1980 Unknown [id number] [id number] 1980 Unknown [id number] [id number]3 1980 Unknown [id number] [id number]3 1980 Unknown [id number] 2.16.840.1.659824.3.579.2.727 1980 Unknown [id number] 2.16.840.1.072655.3.579.2.1286 1980 Unknown [id number] 2.16.840.1.956208.3.579.2.1286 1980 Unknown [id number] 2.16.840.1.453534.3.579.2.1259 1980 Unknown [id number] 2.16.840.1.999485.3.579.2.1259 1980 Unknown [id number] 2.16.840.1.833431.3.579.2.173 1980 Unknown [id number] 2.16.840.1.319309.3.579.2.173 1980 Unknown [id number] 2.16.840.1.848861.3.579.2.173 1980 Unknown [id number] 2.16.840.1.029971.3.579.2.173 1980 Unknown [id number] [id number] 1959 Medicaid [id number] Unknown [id number] [id number] Unknown [id number] [id number] Social History Date Type Detail Facility Start: 09-02-2017 End: 01-28-2022 Tobacco smoking status ORIS Never smoked tobacco [employer] Start: 09-02-2017 End: 01-28-2022 Tobacco use and exposure Smokeless tobacco non-user [employer] Phone: Start: 10-11-2021 End: 01-29-2023 Alcohol intake Current non-drinker of alcohol (finding) [employer] Phone: Start: 1980 Sex Assigned At Not on file [facility] [employer] Phone: Start: 10-01-2021 End: 10-22-2021 Exposure to SARS-CoV-2 (event) Not sure [employer] Phone: Start: 03-13-2020 End: 10-11-2021 Sex Assigned At [facility] Tobacco smoking status Never [facility] Start: 03-13-2020 End: 10-11-2021 History of Social function [facility] Start: 1980 Sex Assigned At Female F [facility] Medical Equipment Procedure Code Equipment Code Equipment Origin al Text Equipment Identifier Dates Hornick Sut 5.5mm 2 Ft Crkscr Fbrwr Shldr 3 Pk 14.7mm Strl Ea=Bill-Only Rpl [id number] Start: 05-15-2022 Use to test BLOO D SUGAR TWICE DAILY [id number] Start: 05-28-2020 Use to test BLOO D SUGAR TWICE DAILY, Diagnosis: E11.9 [id number] Start: 03-08-2020 Clinical Notes 10-22-2021 to 03-05-2023 Note Date & Type Note Facility 03-05-2023 Evaluation note Encounter Date Diagnosis Assessment Notes Mar, Fatty liver (ICD-10 - K76.0) 5 to 10% weight loss can positively impact fatty liver Mar, Obesity (ICD-10 - E66.9) Plan, purchase and prepare healthy foods. Use shopping list, electronic shopping to curb impulse buying. Stock pantry with healthy foods. Keep fruits and vegetables accessible. Avoid bringing unhealthy foods in to the home. Plan family meals minimally 3 x per week. Decrease screen time. Mar, Elevated liver function tests (ICD-10 - R94.5) Mar, ADHD (ICD-10 - F90.9) Discussed weight struggles inherent with concentration deficit. Encouraged meal planning simplicity, protein every meal, available vegetables and minimizing starch. Encourage eating breakfast with protein, avoiding skipping breakfast, discussed skipping breakfast sets off concerning fat and lowering metabolism while increasing craves for fat and carbs. Discussed studies have shown that eating breakfast increases short-term memory and attention. Encourage sleep, maintains better metabolism, increased metabolic efficiency. Discussed planning stimulating activities when bored or fatigued, important to avoid binge or impulsive eating. Discussed slowing eating. Discussed smaller plates to help with visual cues when eating Mar, PTSD (post-traumatic stress disorder) (ICD-10 - F43.10) Mar, Shifting sleep-work schedule, affecting sleep (ICD-10 - G47.26) Attention to sleep hygiene: Sleep at least 6 hours without interruption per 24 hours, best during same time of night. Avoid interruptions in sleep, turn off cell phones, engage friends and family to respect sleep time. This is difficult at first but remain in bed for at least 3 hours at a time and increased for 1 week until reset of the sleep-wake cycle. Consider discussion with PCP if no increased feelings of restfulness/vigi juan during awake hours. Might necessitate sleep adjunct. Mar, Reactive hypoglycemia (ICD-10 - E16.1) Sees ENDO, possible pancreatic fatigue. Discussed how diabetes II delayed or avoided with lifestyle changes such as, losing weight, being active, improving dietary intake. Discussed the risks for diabetes. Explained that weight loss of 5-10% can have significant impact. Consistent with weight management recommendations, encouraged diet rich in fruits, vegetables, low fat dairy, low in red meat sweets and refined grains. Stay away from soda and fruit juice. Increase activity 30 minutes most days of the week. Mar, Diabetes mellitus with hyperglycemia (ICD-10 - E11.65) request notes from Dr. Marroquin Mar, History of kidney stones (ICD-10 - Z87.442) avoid topiramate for weight loss Mar, BMI 37.0-37.9, adult (ICD-10 - Z68.37) Mar, Other I have spent 30 minutes with this patient and over 50% of the visit was counseling done by myself, Rhina ROBERTSON. [employer] Other 01-01-2024 Hospital Discharge instructions* Discharge Instructions* Sil France DO - 03/02/2023 7:49 PM EST Please follow-up with your GI doctor, trial enema at home, return to the ER for worsening abdominalpain, inability to pass gas, or nausea, vomiting * Attachments The following attachments cannot be sent through Care Everywhere. * [facility] (Cypriot[facility] Miscellaneous Notes* Telephone Encounter - Argenis Storm RN - 02/20/2023 10:04 AM EST Patient arrives to department to sign a form for an insurance appeal and demanding to speak with Dr. Silver or make an appointment with him. Patient advised that Dr. Silver sees patients for proceduresonly, all follow ups are with [facility]. She is asking for a prescription for Ultram that is currently temporarily being prescribed by her cancer doctor. She said that Dr. Silver previously prescribed to her when she was under his care in [place]. She is currently taking Meloxicam that helps with her ankle pain only. She has tried Naproxen, alternating Tylenol/Ibuprofen. She currently takes Gabapentin and Tizanidine prescribed by her neurologist. She is also requesting a prescription for a medical bra due to her neck and back pain. She adds that her ortho previously prescribed, but used pain management notes for the approval. It was explained to patient several times that Fartun oversee her treatment plan and Dr. Silver does the injections. She continues to want to speak with Dr. Silver. Patient was advised if she is not happy with her care we can send her medical records to another pain management. Patient statesmaryann has been a patient of for many years and is happy with the injections and continues toask for the Ultram. Advised patient that we would route the requests to [facility] and add Dr. Silver on the note. PVU. * Telephone Encounter - Pete Silver MD - 02/20/2023 10:04 AM EST Discussed with nurse, I agree with Fartun's treatment plan going forward. * Telephone Encounter - UMESH Love - 02/20/2023 10:04 AM EST No Rx for tramadol. I have never written prescription for bra so I would not know how to proceed with anything like that. * Telephone Encounter - Argenis Storm RN - 02/20/2023 10:04 AM EST Patient aware of response. She states whatever . documented in this encounterMer[facility] Health [facility] [email or web address] [facility] [id number] Telephone encounter Note* Telephone Encounter - Argenis Storm RN - 02/20/2023 10:04 AM EST Patient arrives to department to sign a form for an insurance appeal and demanding to speak with Dr. Silver or make an appointment with him. Patient advised that Dr. Silver sees patients for proceduresonly, all follow ups are with [facility]. She is asking for a prescription for Ultram that is currently temporarily being prescribed by her cancer doctor. She said that Dr. Silver previously prescribed to her when she was under his care in [place]. She is currently taking Meloxicam that helps with her ankle pain only. She has tried Naproxen, alternating Tylenol/Ibuprofen. She currently takes Gabapentin and Tizanidine prescribed by her neurologist. She is also requesting a prescription for a medical bra due to her neck and back pain. She adds that her ortho previously prescribed, but used pain management notes for the approval. It was explained to patient several times that [facility] oversee her treatment plan and Dr. Silver does the injections. She continues to want to speak with Dr. Silver. Patient was advised if she is not happy with her care we can send her medical records to another pain management. Patient statesmaryann has been a patient of for many years and is happy with the injections and continues toask for the Ultram. Advised patient that we would route the requests to [facility] and add Dr. Silver on the note. PVU. [email or web address] Telephone encounter Note* Telephone Encounter - Pete Silver MD - 02/20/2023 10:04 AM EST Discussed with nurse, I agree with [facility]'s treatment plan going forward. [email or web address] Telephone encounter Note* Telephone Encounter - UMESH Love - 02/20/2023 10:04 AM EST No Rx for tramadol. I have never written prescription for bra so I would not know how to proceed with anything like that. [email or web address] Telephone encounter Note* Telephone Encounter - Argenis Storm RN - 02/20/2023 10:04 AM EST Patient aware of response. She states whatever . [email or web address] Evaluation note* Encounter Date Diagnosis Assessment Notes Treatment Notes Treatment Clinical Notes Jan, Constipation, unspecified constipation type (ICD-10 - K59.00) Jan, Constipation (ICD-10 - K59.00) [employer] Other 12-12-2023 Miscellaneous Notes* Telephone Encounter - Margaux Olea CST - 02/10/2023 8:18 AM EST Received denial letter for an SI Inj. It is noted in prior requests, the member's chronic pain is related to discogenic causes with improvement in symptoms with shots directed the discogenic disorder. It is not noted why the source of the chronic pain is now related to sacroiliac joint. * Telephone Encounter - UMESH Love - 02/10/2023 8:18 AM EST Can appeal: It is noted that the requested SI joint injection was denied. No actual reason given for the denialexcept It is not noted why the source of the chronic pain is now related to sacroiliac joint. It is true that in the past this patient has had discogenic causes of pain and has responded well in past when the pain appears discogenic. At this time the pain appears to have it origin in the SI jointbased on history and physical exam. The denial letter would suggest that it is not possible for a patient to have more than 1 chronic issue. At the time of her last visit, and as documented on her last note, her pain did not appear nor did the physical exam findings suggest a discogenic cause but did support the SI joint as the cause of her current pain. Just because this patient previously had good success with a lumbar epidural nearly two years ago (for a different type of pain), it is not felt that this is sufficient reason to deny the current request. * Telephone Encounter - Alfredito William - 02/10/2023 8:18 AM EST GOT APPROVAL * Telephone Encounter - Maty Fulton RN - 02/10/2023 8:18 AM EST Pt is scheduled 03/27 for procedure and has f[facility] appt [facility] Telephone encounter Note* Telephone Encounter - Margaux Olea CST - 02/10/2023 8:18 AM EST Received denial letter for an SI Inj. It is noted in prior requests, the member's chronic pain is related to discogenic causes with improvement in symptoms with shots directed the discogenic disorder. It is not noted why the source of the chronic pain is now related to sacroiliac joint. [facility]12-12-[facility] Telephone encounter Note* Telephone Encounter - UMESH Love - 02/10/2023 8:18 AM EST Can appeal: It is noted that the requested SI joint injection was denied. No actual reason given for the denialexcept It is not noted why the source of the chronic pain is now related to sacroiliac joint. It is true that in the past this patient has had discogenic causes of pain and has responded well in past when the pain appears discogenic. At this time the pain appears to have it origin in the SI jointbased on history and physical exam. The denial letter would suggest that it is not possible for a patient to have more than 1 chronic issue. At the time of her last visit, and as documented on her last note, her pain did not appear nor did the physical exam findings suggest a discogenic cause but did support the SI joint as the cause of her current pain. Just because this patient previously had good success with a lumbar epidural nearly two years ago (for a different type of pain), it is not felt that this is sufficient reason to deny the current request. judge.[email or web address] Telephone encounter Note* Telephone Encounter - Alfredito William - 02/10/2023 8:18 AM EST GOT APPROVAL judge.[email or web address] Telephone encounter Note* Telephone Encounter - Maty Fulton RN - 02/10/2023 8:18 AM EST Pt is scheduled 03/27 for procedure and has f/u appt judge.[email or web address] Evaluation note* Encounter Date Diagnosis Assessment Notes Treatment Notes Treatment Clinical Notes Jan, Constipation (ICD-10 - K59.00) The patient states she has had a small improvement in her constipation. The patient is using Colase three times a day. She states she is moving her bowels but still feels as if this is an incomplete bowel movement. We will trial Trulance. She has a family history of colon cancer in her grandmother (age 90). She would like to discuss a colonoscopy. Her constipation is long standing. She has abdominal pain when she is constipated. She has had intermittent rectal bleeding with the constipation but not on a regular basis. We will proceed with a colonoscopy at this time. Jan, Abdominal pain (ICD-10 - R10.9) Jan, Rectal bleed (ICD-10 - K62.5) [employer] Other 11-16-2023 Evaluation note* Encounter Date Diagnosis Assessment Notes Treatment Notes Treatment Clinical Notes Dec, Fatty liver (ICD-10 - K76.0) 5 to 10% weight loss can positively impact fatty liver Dec, Obesity (ICD-10 - E66.9) Plan, purchase and prepare healthy foods. Use shopping list, electronic shopping to curb impulse buying. Stock pantry with healthy foods. Keep fruits and vegetables accessible. Avoid bringing unhealthy foods in to the home. Plan family meals minimally 3 x per week. Decrease screen time. Dec, Elevated liver function tests (ICD-10 - R94.5) Dec, ADHD (ICD-10 - F90.9) Discussed weight struggles inherent with concentration deficit. Encouraged meal planning simplicity, protein every meal, available vegetables and minimizing starch. Encourage eating breakfast with protein, avoiding skipping breakfast, discussed skipping breakfast sets off concerning fat and lowering metabolism while increasing craves for fat and carbs. Discussed studies have shown that eating breakfast increases short-term memory and attention. Encourage sleep, maintains better metabolism, increased metabolic efficiency. Discussed planning stimulating activities when bored or fatigued, important to avoid binge or impulsive eating. Discussed slowing eating. Discussed smaller plates to help with visual cues when eating Dec, PTSD (post-traumatic stress disorder) (ICD-10 - F43.10) Dec, Shifting sleep-work schedule, affecting sleep (ICD-10 - G47.26) Attention to sleep hygiene: Sleep at least 6 hours without interruption per 24 hours, best during same time of night. Avoid interruptions in sleep, turn off cell phones, engage friends and family to respect sleep time. This is difficult at first but remain in bed for at least 3 hours at a time and increased for 1 week until reset of the sleep-wake cycle. Consider discussion with PCP if no increased feelings of restfulness/vigilan ce during awake hours. Might necessitate sleep adjunct. Dec, Reactive hypoglycemia (ICD-10 - E16.1) Sees ENDO, possible pancreatic fatigue. Discussed how diabetes II delayed or avoided with lifestyle changes such as, losing weight, being active, improving dietary intake. Discussed the risks for diabetes. Explained that weight loss of 5-10% can have significant impact. Consistent with weight management recommendations, encouraged diet rich in fruits, vegetables, low fat dairy, low in red meat sweets and refined grains. Stay away from soda and fruit juice. Increase activity 30 minutes most days of the week. Dec, Diabetes mellitus with hyperglycemia (ICD-10 - E11.65) request notes from Dr. Marroquin Dec, History of kidney stones (ICD-10 - Z87.442) avoid topiramate for weight loss Dec, BMI 36.0-36.9,adult (ICD-10 - Z68.36) Dec, Other I have spent 30 minutes with this patient and over 50% of the visit was counseling done by myself, Rhina ROBERTSON. [employer] Other 11-08-2023 Evaluation note* Encounter Date Diagnosis Assessment Notes Treatment Notes Treatment Clinical Notes Dec, Constipation, unspecified constipation type (ICD-10 - K59.00) CONSTIPATION HAS BEEN ON GOING FOR YEARS. PATIENT HAS A DAILY BOWEL MOVEMENT, BUT DOES NOT FEEL IF SHE EMPTYING ALL THE WAY. PATIENT ADVISED TO START PROBIOTIC, STATES SHE WILL NOT BE ABLE TO DUE TO COST. WILL TRY TO SEND IN ALIGN TO PHARMACY TO SEE IF INSURANCE WILL COVER. PATIENT HAS BEEN USING DOCUSATE SODIUM 2 CAPSULES DAILY WITH SOME RELIEF. WILL HAVE PATIENT START DOCUSATE 3 CAPSULES DAILY. [employer] Other 06-29-2023 Evaluation note* Encounter Date Diagnosis Assessment Notes Treatment Notes Treatment Clinical Notes Jul, Obesity (ICD-10 - E66.9) Jul, BMI 34.0-34.9,adult (ICD-10 - Z68.34) Jul, Other Summary of Visi t: (A) discussed continuing to work on small goals until stress decreases and she has the energy to increase goals (B) discussed healhtier choices at [place]- food blog reviewed (C) reviewed food storage tips for keeping produce fresh longer Patient set the following goals: - NEW: continue to choose sugar free beverages- not reviewed [employer] Other 05-30-2023 Evaluation note* Encounter Date Diagnosis Assessment Notes Treatment Notes Treatment Clinical Notes June, Fatty liver (ICD-10 - K76.0) 5 to 10% weight loss can positively impact fatty liver June, Obesity (ICD-10 - E66.9) Plan, purchase and prepare healthy foods. Use shopping list, electronic shopping to curb impulse buying. Stock pantry with healthy foods. Keep fruits and vegetables accessible. Avoid bringing unhealthy foods in to the home. Plan family meals minimally 3 x per week. Decrease screen time. June, Elevated liver function tests (ICD-10 - R94.5) June, ADHD (ICD-10 - F90.9) Discussed weight struggles inherent with concentration deficit. Encouraged meal planning simplicity, protein every meal, available vegetables and minimizing starch. Encourage eating breakfast with protein, avoiding skipping breakfast, discussed skipping breakfast sets off concerning fat and lowering metabolism while increasing craves for fat and carbs. Discussed studies have shown that eating breakfast increases short-term memory and attention. Encourage sleep, maintains better metabolism, increased metabolic efficiency. Discussed planning stimulating activities when bored or fatigued, important to avoid binge or impulsive eating. Discussed slowing eating. Discussed smaller plates to help with visual cues when eating June, PTSD (post-traumatic stress disorder) (ICD-10 - F43.10) June, Shifting sleep-work schedule, affecting sleep (ICD-10 - G47.26) Attention to sleep hygiene: Sleep at least 6 hours without interruption per 24 hours, best during same time of night. Avoid interruptions in sleep, turn off cell phones, engage friends and family to respect sleep time. This is difficult at first but remain in bed for at least 3 hours at a time and increased for 1 week until reset of the sleep-wake cycle. Consider discussion with PCP if no increased feelings of restfulness/vigilan ce during awake hours. Might necessitate sleep adjunct. June, Reactive hypoglycemia (ICD-10 - E16.1) Sees ENDO, possible pancreatic fatigue. Discussed how diabetes II delayed or avoided with lifestyle changes such as, losing weight, being active, improving dietary intake. Discussed the risks for diabetes. Explained that weight loss of 5-10% can have significant impact. Consistent with weight management recommendations, encouraged diet rich in fruits, vegetables, low fat dairy, low in red meat sweets and refined grains. Stay away from soda and fruit juice. Increase activity 30 minutes most days of the week. June, Diabetes mellitus with hyperglycemia (ICD-10 - E11.65) request notes from Dr. Marroquin June, History of kidney stones (ICD-10 - Z87.442) avoid topiramate for weight loss June, BMI 35.0-35.9,adult (ICD-10 - Z68.35) June, Other I have spent 30 minutes with this patient and over 50% of the visit was counseling done by myself, Rhina ROBERTSON. [employer] Other 03-21-2023 Evaluation note* Encounter Date Diagnosis Assessment Notes Treatment Notes Treatment Clinical Notes Apr, Fatty liver (ICD-10 - K76.0) 5 to 10% weight loss can positively impact fatty liver Apr, Obesity (ICD-10 - E66.9) Plan, purchase and prepare healthy foods. Use shopping list, electronic shopping to curb impulse buying. Stock pantry with healthy foods. Keep fruits and vegetables accessible. Avoid bringing unhealthy foods in to the home. Plan family meals minimally 3 x per week. Decrease screen time. Apr, Elevated liver function tests (ICD-10 - R94.5) Apr, ADHD (ICD-10 - F90.9) Discussed weight struggles inherent with concentration deficit. Encouraged meal planning simplicity, protein every meal, available vegetables and minimizing starch. Encourage eating breakfast with protein, avoiding skipping breakfast, discussed skipping breakfast sets off concerning fat and lowering metabolism while increasing craves for fat and carbs. Discussed studies have shown that eating breakfast increases short-term memory and attention. Encourage sleep, maintains better metabolism, increased metabolic efficiency. Discussed planning stimulating activities when bored or fatigued, important to avoid binge or impulsive eating. Discussed slowing eating. Discussed smaller plates to help with visual cues when eating Apr, PTSD (post-traumatic stress disorder) (ICD-10 - F43.10) Apr, Shifting sleep-work schedule, affecting sleep (ICD-10 - G47.26) Attention to sleep hygiene: Sleep at least 6 hours without interruption per 24 hours, best during same time of night. Avoid interruptions in sleep, turn off cell phones, engage friends and family to respect sleep time. This is difficult at first but remain in bed for at least 3 hours at a time and increased for 1 week until reset of the sleep-wake cycle. Consider discussion with PCP if no increased feelings of restfulness/vigilan ce during awake hours. Might necessitate sleep adjunct. Apr, Reactive hypoglycemia (ICD-10 - E16.1) Sees ENDO, possible pancreatic fatigue. Discussed how diabetes II delayed or avoided with lifestyle changes such as, losing weight, being active, improving dietary intake. Discussed the risks for diabetes. Explained that weight loss of 5-10% can have significant impact. Consistent with weight management recommendations, encouraged diet rich in fruits, vegetables, low fat dairy, low in red meat sweets and refined grains. Stay away from soda and fruit juice. Increase activity 30 minutes most days of the week. Apr, Diabetes mellitus with hyperglycemia (ICD-10 - E11.65) request notes from Dr. Marroquin Apr, History of kidney stones (ICD-10 - Z87.442) avoid topiramate for weight loss Apr, BMI 34.0-34.9,adult (ICD-10 - Z68.34) Apr, Other I have spent 30 minutes with this patient and over 50% of the visit was counseling done by myself, Rhina ROBERTSON. [employer] Other 02-07-2023 Evaluation note* Encounter Date Diagnosis Assessment Notes Treatment Notes Treatment Clinical Notes Apr, Obesity (ICD-10 - E66.9) Apr, BMI 34.0-34.9,adult (ICD-10 - Z68.34) Apr, Other Summary of Visi t: (A) reviewed better choices when choosing items from a food pantry (B) discussed community resources for food and assistance (C) ideas for cookign 2x/ and utilizing leftovers for new meals Patient set the following goals: not reviewed today [employer] Other 02-07-2023 Evaluation note* Encounter Date Diagnosis Assessment Notes Treatment Notes Treatment Clinical Notes Apr, Fatty liver (ICD-10 - K76.0) 5 to 10% weight loss can positively impact fatty liver Apr, Obesity (ICD-10 - E66.9) Plan, purchase and prepare healthy foods. Use shopping list, electronic shopping to curb impulse buying. Stock pantry with healthy foods. Keep fruits and vegetables accessible. Avoid bringing unhealthy foods in to the home. Plan family meals minimally 3 x per week. Decrease screen time. Apr, Elevated liver function tests (ICD-10 - R94.5) Apr, ADHD (ICD-10 - F90.9) Discussed weight struggles inherent with concentration deficit. Encouraged meal planning simplicity, protein every meal, available vegetables and minimizing starch. Encourage eating breakfast with protein, avoiding skipping breakfast, discussed skipping breakfast sets off concerning fat and lowering metabolism while increasing craves for fat and carbs. Discussed studies have shown that eating breakfast increases short-term memory and attention. Encourage sleep, maintains better metabolism, increased metabolic efficiency. Discussed planning stimulating activities when bored or fatigued, important to avoid binge or impulsive eating. Discussed slowing eating. Discussed smaller plates to help with visual cues when eating Apr, PTSD (post-traumatic stress disorder) (ICD-10 - F43.10) Apr, Shifting sleep-work schedule, affecting sleep (ICD-10 - G47.26) Attention to sleep hygiene: Sleep at least 6 hours without interruption per 24 hours, best during same time of night. Avoid interruptions in sleep, turn off cell phones, engage friends and family to respect sleep time. This is difficult at first but remain in bed for at least 3 hours at a time and increased for 1 week until reset of the sleep-wake cycle. Consider discussion with PCP if no increased feelings of restfulness/vigilan ce during awake hours. Might necessitate sleep adjunct. Apr, Reactive hypoglycemia (ICD-10 - E16.1) Sees ENDO, possible pancreatic fatigue. Discussed how diabetes II delayed or avoided with lifestyle changes such as, losing weight, being active, improving dietary intake. Discussed the risks for diabetes. Explained that weight loss of 5-10% can have significant impact. Consistent with weight management recommendations, encouraged diet rich in fruits, vegetables, low fat dairy, low in red meat sweets and refined grains. Stay away from soda and fruit juice. Increase activity 30 minutes most days of the week. Apr, Diabetes mellitus with hyperglycemia (ICD-10 - E11.65) request notes from Dr. Marroquin Apr, History of kidney stones (ICD-10 - Z87.442) Apr, BMI 36.0-36.9,adult (ICD-10 - Z68.36) Apr, Other I have spent 30 minutes with this patient and over 50% of the visit was counseling done by myself, Rhina ROBERTSON. [employer] Other 12-28-2022 Evaluation note* Encounter Date Diagnosis Assessment Notes Treatment Notes Treatment Clinical Notes Jan, Obesity, unspecified classification, unspecified obesity type, unspecified whether serious comorbidity present (ICD-10 - E66.9) Jan, BMI 36.0-36.9,adult (ICD-10 - Z68.36) Jan, Other Summary of Visi t: (A) Presentation of Plate Method discussed (B) Sample meal ideas reviewed (C) exercise recommendations reviewed Patient set the following goals: - patient set personal goal using given handout. [employer] Other 12-27-2022 Evaluation note* Encounter Date Diagnosis Assessment Notes Treatment Notes Treatment Clinical Notes Jan, Fatty liver (ICD-10 - K76.0) 5 to 10% weight loss can positively impact fatty liver Jan, Obesity (ICD-10 - E66.9) Plan, purchase and prepare healthy foods. Use shopping list, electronic shopping to curb impulse buying. Stock pantry with healthy foods. Keep fruits and vegetables accessible. Avoid bringing unhealthy foods in to the home. Plan family meals minimally 3 x per week. Decrease screen time. Jan, Elevated liver function tests (ICD-10 - R94.5) Jan, ADHD (ICD-10 - F90.9) Discussed weight struggles inherent with concentration deficit. Encouraged meal planning simplicity, protein every meal, available vegetables and minimizing starch. Encourage eating breakfast with protein, avoiding skipping breakfast, discussed skipping breakfast sets off concerning fat and lowering metabolism while increasing craves for fat and carbs. Discussed studies have shown that eating breakfast increases short-term memory and attention. Encourage sleep, maintains better metabolism, increased metabolic efficiency. Discussed planning stimulating activities when bored or fatigued, important to avoid binge or impulsive eating. Discussed slowing eating. Discussed smaller plates to help with visual cues when eating Jan, PTSD (post-traumatic stress disorder) (ICD-10 - F43.10) Jan, Shifting sleep-work schedule, affecting sleep (ICD-10 - G47.26) Attention to sleep hygiene: Sleep at least 6 hours without interruption per 24 hours, best during same time of night. Avoid interruptions in sleep, turn off cell phones, engage friends and family to respect sleep time. This is difficult at first but remain in bed for at least 3 hours at a time and increased for 1 week until reset of the sleep-wake cycle. Consider discussion with PCP if no increased feelings of restfulness/vigilan ce during awake hours. Might necessitate sleep adjunct. Jan, Reactive hypoglycemia (ICD-10 - E16.1) Sees ENDO, possible pancreatic fatigue. Discussed how diabetes II delayed or avoided with lifestyle changes such as, losing weight, being active, improving dietary intake. Discussed the risks for diabetes. Explained that weight loss of 5-10% can have significant impact. Consistent with weight management recommendations, encouraged diet rich in fruits, vegetables, low fat dairy, low in red meat sweets and refined grains. Stay away from soda and fruit juice. Increase activity 30 minutes most days of the week. Jan, Diabetes mellitus with hyperglycemia (ICD-10 - E11.65) request notes from Dr. Marroquin Jan, History of kidney stones (ICD-10 - Z87.442) Jan, BMI 36.0-36.9,adult (ICD-10 - Z68.36) Jan, Other I have spent 30 minutes with this patient and over 50% of the visit was counseling done by myself, Rhina ROBERTSON. [employer] Other 12-01-2022 NotePROCEDURE: XR ANKLE LT MIN 3 V, XR FOOT LT MIN 3 VIEWS HISTORY: Pain of left ankle joint ; chronic left ankle pain, foot numbness COMPARISON: XR ankle bilateral 02/02/2019, XR foot bilateral 01/03/2019 FINDINGS: BONES:Old, healed distal fibular fracture. No acute bone fracture, dislocation, or lesion. No significant degenerative joint disease. SOFT TISSUES:No visible soft tissue swelling. EFFUSION:None visible. OTHER: Negative. IMPRESSION: 1. No acute bone abnormality or significant degenerative changes. 2. Old healed distal fibular fracture; unchanged. Electronically authenticated by: ONEL CLARK Date: 2022-01-29 22:30[facility] [facility] NotePROCEDURE: XR ANKLE LT MIN 3 V, XR FOOT LT MIN 3 VIEWS HISTORY: Pain of left ankle joint ; chronic left ankle pain, foot numbness COMPARISON: XR ankle bilateral 02/02/2019, XR foot bilateral 01/03/2019 FINDINGS: BONES:Old, healed distal fibular fracture. No acute bone fracture, dislocation, or lesion. No significant degenerative joint disease. SOFT TISSUES:No visible soft tissue swelling. EFFUSION:None visible. OTHER: Negative. IMPRESSION: 1. No acute bone abnormality or significant degenerative changes. 2. Old healed distal fibular fracture; unchanged. Electronically authenticated by: ONEL CLARK Date: 2022-01-29 22:30[facility]11-15-2022 Evaluation note* Encounter Date Diagnosis Assessment Notes Treatment Notes Treatment Clinical Notes Dec, BMI 39.0-39.9,adult (ICD-10 - Z68.39) Dec, Obesity (ICD-10 - E66.9) Plan, purchase and prepare healthy foods. Use shopping list, electronic shopping to curb impulse buying. Stock pantry with healthy foods. Keep fruits and vegetables accessible. Avoid bringing unhealthy foods in to the home. Plan family meals minimally 3 x per week. Decrease screen time. Dec, Fatty liver (ICD-10 - K76.0) 5 to 10% weight loss can positively impact fatty liver Dec, Elevated liver function tests (ICD-10 - R94.5) Dec, ADHD (ICD-10 - F90.9) Discussed weight struggles inherent with concentration deficit. Encouraged meal planning simplicity, protein every meal, available vegetables and minimizing starch. Encourage eating breakfast with protein, avoiding skipping breakfast, discussed skipping breakfast sets off concerning fat and lowering metabolism while increasing craves for fat and carbs. Discussed studies have shown that eating breakfast increases short-term memory and attention. Encourage sleep, maintains better metabolism, increased metabolic efficiency. Discussed planning stimulating activities when bored or fatigued, important to avoid binge or impulsive eating. Discussed slowing eating. Discussed smaller plates to help with visual cues when eating Dec, PTSD (post-traumatic stress disorder) (ICD-10 - F43.10) Dec, Shifting sleep-work schedule, affecting sleep (ICD-10 - G47.26) Attention to sleep hygiene: Sleep at least 6 hours without interruption per 24 hours, best during same time of night. Avoid interruptions in sleep, turn off cell phones, engage friends and family to respect sleep time. This is difficult at first but remain in bed for at least 3 hours at a time and increased for 1 week until reset of the sleep-wake cycle. Consider discussion with PCP if no increased feelings of restfulness/vigilan ce during awake hours. Might necessitate sleep adjunct. Dec, Reactive hypoglycemia (ICD-10 - E16.1) Sees ENDO, possible pancreatic fatigue. Discussed how diabetes II delayed or avoided with lifestyle changes such as, losing weight, being active, improving dietary intake. Discussed the risks for diabetes. Explained that weight loss of 5-10% can have significant impact. Consistent with weight management recommendations, encouraged diet rich in fruits, vegetables, low fat dairy, low in red meat sweets and refined grains. Stay away from soda and fruit juice. Increase activity 30 minutes most days of the week. Dec, Diabetes mellitus with hyperglycemia (ICD-10 - E11.65) request notes from Dr. Marroquin Dec, History of kidney stones (ICD-10 - Z87.442) Dec, Other I have spent 30 minutes with this patient and over 50% of the visit was counseling done by myself, Rhina ROBERTSON. [employer] Other 10-05-2022 Evaluation note* Encounter Date Diagnosis Assessment Notes Treatment Notes Treatment Clinical Notes Nov, BMI 39.0-39.9,adult (ICD-10 - Z68.39) Nov, Obesity (ICD-10 - E66.9) Plan, purchase and prepare healthy foods. Use shopping list, electronic shopping to curb impulse buying. Stock pantry with healthy foods. Keep fruits and vegetables accessible. Avoid bringing unhealthy foods in to the home. Plan family meals minimally 3 x per week. Decrease screen time. Nov, Fatty liver (ICD-10 - K76.0) 5 to 10% weight loss can positively impact fatty liver Nov, Elevated liver function tests (ICD-10 - R94.5) Nov, ADHD (ICD-10 - F90.9) Discussed weight struggles inherent with concentration deficit. Encouraged meal planning simplicity, protein every meal, available vegetables and minimizing starch. Encourage eating breakfast with protein, avoiding skipping breakfast, discussed skipping breakfast sets off concerning fat and lowering metabolism while increasing craves for fat and carbs. Discussed studies have shown that eating breakfast increases short-term memory and attention. Encourage sleep, maintains better metabolism, increased metabolic efficiency. Discussed planning stimulating activities when bored or fatigued, important to avoid binge or impulsive eating. Discussed slowing eating. Discussed smaller plates to help with visual cues when eating Nov, PTSD (post-traumatic stress disorder) (ICD-10 - F43.10) Nov, Shifting sleep-work schedule, affecting sleep (ICD-10 - G47.26) Attention to sleep hygiene: Sleep at least 6 hours without interruption per 24 hours, best during same time of night. Avoid interruptions in sleep, turn off cell phones, engage friends and family to respect sleep time. This is difficult at first but remain in bed for at least 3 hours at a time and increased for 1 week until reset of the sleep-wake cycle. Consider discussion with PCP if no increased feelings of restfulness/vigilan ce during awake hours. Might necessitate sleep adjunct. Nov, Reactive hypoglycemia (ICD-10 - E16.1) Can look to pancreatic fatigue. Discussed how diabetes II delayed or avoided with lifestyle changes such as, losing weight, being active, improving dietary intake. Discussed the risks for diabetes. Explained that weight loss of 5-10% can have significant impact. Consistent with weight management recommendations, encouraged diet rich in fruits, vegetables, low fat dairy, low in red meat sweets and refined grains. Stay away from soda and fruit juice. Increase activity 30 minutes most days of the week. Nov, Diabetes mellitus with hyperglycemia (ICD-10 - E11.65) request notes from Dr. Marroquin Nov, History of kidney stones (ICD-10 - Z87.442) Nov, Other I have spent 60 minutes with this patient and over 50% of the visit was counseling done by myself, Rhina ROBERTSON. [employer] Other 08-30-2022 Evaluation note* Encounter Date Diagnosis Assessment Notes Treatment Notes Treatment Clinical Notes Sep, Fatty liver (ICD-10 - K76.0) ENCOURAGED WEIGHT LOSS Sep, Obesity (BMI 30-39.9) (ICD-10 - E66.9) [employer] Other 08-23-2022 Hospital Discharge instructions* Discharge Instructions* Stanley Almonte PA-C - 10/22/2021 2:03 PM EDT Follow-up with primary care doctor 7 to 10 days for reevaluation. Take Motrin 800 mg as directed with food. Start eardrops left ear as directed. Promptly return to emergency department for new, changing or worsening of symptoms or other concerns. documented in this encounter[employer]ivation Solutions Phone: evaluation + Plan note No data available for this section [facility]* Diagnosis Pilonidal cyst- Primary Pilonidal cyst without mention of abscess documented in this encounter [employer] Phone: [email or web address] note* Diagnosis Acute diffuse otitis externa of left ear- Primary documented in this encounter [employer] Phone: [email or web address] noteNo InformationNort [employer] Other Evaluation note* Diagnosis Constipation, unspecified constipation type- Primary documented in this encounter [employer] noteNo assessment information available [facility] Work Phone: Hiskqno general Narrative - Reported* Type Description Date Medical History PTSD Medical History DIVERTICULITOUS Surgical History 2 BACK INJECTIONS 2015 Surgical History LEFT ANKLE 2002 Surgical History CHOLECYSTECTOMY Hospitalization History SEE ABOVE [employer] Other Hisjyxb general Narrative - Reported* Type Description Date Medical History PTSD Medical History DIVERTICULITOUS Medical History bipolar Medical History ADHD Surgical History 2 BACK INJECTIONS 2014 Surgical History LEFT ANKLE 2002 Surgical History CHOLECYSTECTOMY Surgical History nasal surgery Hospitalization History SEE ABOVE [employer] Other Hisjkwo general Narrative - Reported* Type Description Date Medical History PTSD Medical History DIVERTICULITOUS Medical History bipolar Medical History ADHD Surgical History 2 BACK INJECTIONS 2014 Surgical History LEFT ANKLE 2002 Surgical History CHOLECYSTECTOMY Surgical History nasal surgery Surgical History right Rotator surgery 05-15-22 Hospitalization History SEE ABOVE [employer] Other Hisijdc general Narrative - Reported* Type Description Date Medical History PTSD Medical History DIVERTICULITOUS Medical History bipolar Medical History ADHD Medical History rotator cuff tear Surgical History 2 BACK INJECTIONS 2015 Surgical History LEFT ANKLE 2002 Surgical History CHOLECYSTECTOMY Surgical History nasal surgery Surgical History right Rotator surgery 05-15-22 Hospitalization History SEE ABOVE [employer] Other Hisxkrk general Narrative - Reported* Type Description Date Medical History PTSD Medical History DIVERTICULITOUS Medical History bipolar Medical History ADHD Medical History rotator cuff tear Surgical History 2 BACK INJECTIONS 2014 Surgical History LEFT ANKLE 2001 Surgical History CHOLECYSTECTOMY Surgical History nasal surgery Surgical History right Rotator surgery 05-15-22 Surgical History Neck injections/root burnt 12/31 Hospitalization History SEE ABOVE [employer] Other Hisdapl general Narrative - Reported* Type Description Date Medical History PTSD Medical History DIVERTICULITOUS Medical History bipolar Medical History ADHD Medical History rotator cuff tear Surgical History 2 BACK INJECTIONS 2014 Surgical History LEFT ANKLE 2001 Surgical History CHOLECYSTECTOMY Surgical History nasal surgery Surgical History right Rotator surgery 05-15-22 Surgical History Neck injections/root burnt 12/31 Hospitalization History SEE ABOVE Hospitalization History [facility] onstipation 03-02-2023 [employer] Other Hospital Discharge instructions* Attachments The following attachments cannot be sent through Care Everywhere. * Pilonidal Abscess (Cypriot) [facility] Work Phone: Hospital Discharge instructions No data available for this section [facility] RehabilitationInstructionsNot on filedocumented in this encounter [facility]ructionsNot on filedocumented in this encounter [facility] System[employer] note No data available for this section [facility] Summary Purpose Family History No Family History Records Found Relationship Condition Age at Onset Recorded Date/T basia father Diabetes mellitus Unknown Heart disease Unknown Not Specified Diabetes mellitus Unknown Advance Directives No Advanced Directives Records FoundLatest Code Status on File Code Status Date Activated Date Inactivated Comments Full Code 09/16/2016 3:19 PM 09/17/2016 8:38 PM Advance Directive Response Recorded Date/ Time Advance Directives No July 18 8:24am Reason for Referral Reason *FU 11/05 Please s chedule consult to evaluate and treat. Diagnosis 1 Obesity (BMI 30-39.9 ) (E66.9) Referral Organization [facility] Referring Provider First Name Yo Referring Provider Last Name Viviy Referring Provider Specialty Gastroenter ology Referred Organization Unknown Facility Referred Provider Marcial Potter Referred Provider Specialty Internal Med icine Referral Priority Routine General Notes Huong Potter 10/29 11:53:16 AM > FAXED PATIENT REFERRAL FORM TO [facility] LOSS CLINIC. Chief Complaint and Reason for Visit Chief Complaint Obesity Abdominal Pain, Rectal Bleeding Additional Source Comments INFORMATION SOURCE (unrecogn ized section and content) DATE CREATED AUTHOR 08/26/2017 [facility] DATE CREATED AUTHOR AUTHOR'S ORGANIZ ATION 05/30/2022 [facility] DATE CREATED AUTHOR AUTHOR'S ORGANIZ ATION 01/18/2023 [facility] DATE CREATED AUTHOR AUTHOR'S ORGANIZ ATION 03/17/2023 [facility] DATE CREATED AUTHOR AUTHOR'S ORGANIZ ATION 03/20/2023 [facility] DATE CREATED AUTHOR AUTHOR'S ORGANIZ ATION 03/20/2023 [facility] EP[facility] DATE CREATED AUTHOR AUTHOR'S ORGANIZ ATION 03/25/2023 [facility] Reason for Visit (unrecogniz ed section and content) Reason Comments Cyst Pt has a cyst on her rear that she would like lanced. Pt went to urgent care but they could not juan because it was too hard Nausea Pt reports loss of a ppetite and nausea after taking bactrim on empty stomache. Pt was also prescribed Doxy but it is not available until Thursday. Concern For COVID-19 Pt would like swabb ed for covid because pt was told covid is going around again. Pt is afebrile. Denies SOB/cough symptoms. 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 Reason Comments Constipation Reason Onset Date Comments Medication, DME 02/20/2023 Ordered Prescriptions (unrec ognized section and content) Prescription Sig Dispensed Refills Start Date End Da te clindamycin (CLEOCIN) 150 MG capsule Take 3 capsules by mouth in the morning and 3 capsules at noon and 3 capsules before bedtime. Do all this for 10 days. 90 capsule 0 10/12/2021 10/22/2021 Prescription Sig Dispensed Refills Start Date End Da te asjegcjz-ctaikcadi-vpcckx ortisone (CORTISPORIN) 3.5-24931-[address] 4 drops into the left ear 3 times daily for 7 days Instill into left Ear TID x 7 days 10 mL 0 10/22/2021 10/29/2021 Scheduled Active and Recently Administ ered Medications (unrecognized section and content) Medication Order 10/10/2021 10/11/2021 10/12/2021 clindamycin (CLEOCIN) capsule 450 mg (COMPLETED) 450 mg, Oral, ONCE, 1 dose, On 10/12/21 at 0115, Antimicrobial Indications: Skin and Soft Tissue Infection 0145 (Given - Provid er: Leroy Roca, ZEYNEP) ondansetron (ZOFRAN-ODT) disintegrating tablet 4 mg (COMPLETED) 4 mg, Oral, ONCE, 1 dose, On 10/12/21 at 0130 0133 (Given - Provid er: Leroy Roca, ZEYNEP) Care Teams (unrecognized sec tion and content) Hand Rug Cleaner Relationship Specialty Start Date End Date Shawna Dudley DO [address] [place], [place] [id number] PCP - General Family Medicine 10/12/21 Hand Rug Cleaner Relationship Specialty Start Date End Date Shawna Dudley DO [address] [place], [place] [id number] PCP - General Family Medicine 10/12/21 Hand Rug Cleaner Relationship Specialty Start Date End Date Shawna Dudley DO [address] [place], [place] [id number] PCP - General Family Medicine 10/12/21 Hand Rug Cleaner Relationship Specialty Start Date End Date Shawna Dudley DO [address] [place], [place] [id number] PCP - General Family Medicine 05/02/22 Hand Rug Cleaner Relationship Specialty Start Date End Date Shawna Dudley DO [address] [place], [place] [id number] PCP - General Family Medicine 10/12/21 Hand Rug Cleaner Relationship Specialty Start Date End Date JaquelineShawna maloney [address] [place] [address] PCP - General Family Medicine 05/02/22 Team Status: Active Member Role Status Dates NON STAFF Primary Care Provider Active Team Status: Active Member Role Status Dates Yo Blank MD Attending Provider Active S tart: March 05, 2023 Shawna Dudley DO Primary Care Provider Active Start: March 05, 2023 Team Status: Active Member Role Status Dates Yo Blank MD Attending Provider, Other Provider Active Start: March 18, 2023 NON STAFF Primary Care Provider Active Start: March 18, 2023 Goals (unrecognized section and content) Goals may be documented in a n alternate section FOR RECORDS PERTAINING TO PATIENTS WHO ARE OR HAVE BEEN ENROLLED IN A CHEMICAL DEPENDENCY/SUBSTANCEABUSE PROGRAM, SOME INFORMATION MAY BE OMITTED. This clinical summary was aggregated from multiple sources. Caution should be exercised in using it in the provision of clinical care. This summary normalizes information from multiple sources, and as a consequence, information in this document may materially change the coding, format and clinical context of patient data. In addition, data may be omitted in some cases. CLINICAL DECISIONS SHOULD BE BASED ON THE PRIMARY CLINICAL RECORDS. [facility] [employer] [facility] provides no warranty or guarantee of the accuracy or completeness of information in this document.
--- NOTE | 2023-03-25 09:33 | US_ITS ---
Patient Name: PEE WHITEHEAD MR#: [id number] : 1980 Exam Date: 03/25/2023 Ordering Doctor: LUZ MARIA KIDD This report includes an Addendum and supersedes previous reports for this exam. RADIOLOGY REPORT PROCEDURE: MM DIAGNOSTIC MAMMO UNILAT RT, 03/25/2023, 09:32 US BREAST RT LIMITED, 03/25/2023, 09:51 COMPARISON: MG MAMM SCREEN 3D STELLA CAD, 03/16/2023. INDICATIONS: abnormal mammogram R92.8 Calculator Name NCI Breast Cancer Risk Assessment Tool 5 Year Breast Cancer Risk Not Reported. Lifetime Breast Cancer Risk Not Reported. Personal Breast Cancer No Personal Ovarian Cancer No Treatments None Family Cancers None LOCATION: The [facility] BREAST COMPOSITION: Scattered areas fibroglandular density. FINDINGS: DIAGNOSTIC CATEGORY 2--BENIGN FINDING. NO CHANGE FROM COMPARISON. Spot compression views demonstrate a persistent nodule upper outer quadrant , reniform shape suggests a lymph node. Ultrasound was performed demonstrating 2 lymph nodes in the area the patient's palpable abnormality , both normal in morphology. Lymph node 1 measures 2.1 x 0.7 x 1.2 cm. Lymph node 2 measures 2.5 x 1.4 x 1.0 cm, borderline enlarged. Both lymph nodes demonstrate a thin hypoechogenic cortex, normal. Two normal lymph nodes are favored. No further evaluation is recommended. RECOMMENDATIONS: ROUTINE MAMMOGRAM AND CLINICAL EVALUATION IN 12 MONTHS. PLEASE NOTE: A NORMAL MAMMOGRAM DOES NOT EXCLUDE THE POSSIBILITY OF BREAST CANCER. A CLINICALLY SUSPICIOUS PALPABLE LUMP SHOULD BE BIOPSIED. Dictated by: Zelalem Tejada MD on 03/25/2023 at 10:08 Approved by: Zelalem Tejada MD on 03/25/2023 at 10:11 ADDENDUM: FINDINGS: These findings were discussed at length with Dr. Fisher. The patient has a history of BRCA2 with a strong family history. The mammographic findings are not entirely congruent with the ultrasound findings of normal lymph nodes. Consider follow-up MRI RECOMMENDATIONS: BREAST MRI: BILATERAL BREASTS Dictated by: Zelalem Tejada MD on 05/05/2023 at 12:17 Approved by: Zelalem Tejada MD on 05/05/2023 at 12:19
== END 2023-03-25 09:28 | disposition home or self-care (01) ==
LOC: MAMMO 09:27
PROVIDERS: PCP Nurse Practitioner Primary Care; Visit Provider Nurse Practitioner Primary Care
DX: R92.8 Other abnormal and inconclusive findings on diagnostic imaging of breast (principal)
CPT/HCPCS: 76642; 77065

== ENCOUNTER 2023-04-07 07:32 | Outpatient (RCR) | payer OTHER, SELFPAY ==
[2023-04-07 09:35] LABS: Basophils Absolute Auto 0.1 10^3/uL (0.0-0.1); Basophils Percent Auto 0.5 % (0.2-2.0); Eosinophils Absolute Auto 0.2 10^3/uL (0.0-0.7); Eosinophils Percent Auto 1.5 % (0.9-7.0); Hematocrit 46.6 % (36.0-48.0); Hemoglobin 14.9 g/dL (12.0-16.0); Immature Granulocytes Abs Auto 0.04 10^3/uL (0.00-0.03); Immature Granulocytes Pct Auto 0.4 % (0.0-0.5); Lymphocytes Absolute Auto 2.7 10^3/uL (1.2-3.8); Lymphocytes Percent Auto 24.5 % (20.5-60.0); Mean Corpuscular Hemoglobin 28.5 pg (26.7-34.0); Mean Corpuscular Volume 89.1 fL (81.0-99.0); Mean Platelet Volume 10.6 fL (9.5-13.5); Monocytes Absolute Auto 0.6 10^3/uL (0.3-0.8); Monocytes Percent Auto 5.7 % (1.7-12.0); Neutrophils Absolute Auto 7.3 10^3/uL (1.4-6.5); Neutrophils Percent Auto 67.4 % (43.0-75.0); Platelet Count 311 10^3/uL (150-450); Red Blood Count 5.23 10^6/uL (4.20-5.40); Red Cell Distribution Width 13.2 % (11.0-15.0); White Blood Count 10.8 10^3/uL (4.0-11.0)
[2023-04-07 10:45] LABS: Anion Gap 13.5; BUN Creatinine Ratio 23.9; Calcium 9.2 mg/dL (8.5-10.1); Carbon Dioxide 27.4 mmol/L (21.0-32.0); Chloride 102 mmol/L (98-107); Estimated GFR (African America >60 (>=60); Estimated GFR (Non-African Ame >60 (>=60); Glucose 91 mg/dL (74-106); Potassium 3.9 mmol/L (3.5-5.1); Sodium 139 mmol/L (136-145)
[2023-04-07 11:02] LABS: Percent Iron Saturation 27.8 %
== END 2023-04-07 16:00 | disposition home or self-care (01) ==
LOC: INF 07:32
PROVIDERS: PCP Nurse Practitioner Primary Care; Visit Provider Internal Medicine Hematology & Oncology
DX: D50.9 Iron deficiency anemia, unspecified (principal); D64.9 Anemia, unspecified; K90.9 Intestinal malabsorption, unspecified; Z15.09 Genetic susceptibility to other malignant neoplasm
CPT/HCPCS: 36415; 80048; 82728; 83540; 83550; 85025; G0463

== ENCOUNTER 2023-04-22 09:16 | Outpatient (OUT) | payer OTHER, SELFPAY ==
--- OUTSIDE RECORDS SUMMARY | 2023-04-22 09:23 | XMS_ITS | CCD ---
Author Name Unknown Address [address] [place] [address] Organization [facility] Care Team Providers Care Welt Stitch Cleaner Name Role Phone FernandoJuan Ramon olsen Unavailable Unavailable TedJuan Ramon Unavailable Unavailable DOMENICA OLIVA Unavailable Unavailable Shawna Dudley DO Primary Care Provider Yo Blank Unavailable Gayathri Adams Unavailable Tamar Sosa Unavailable KARY ., DR VARGAS Attending Unavailable KARY ., DR VARGAS Consulting Unavailable MISC, DR TRAORE Primary Care Unavailable KARY ., DR VARGAS Admitting Unavailable HIGHLANDERJOY Admitting Unavailable DEFRANCE, DR METZGER Primary Care Unavailable ZIEBER, DR ONEL Sesay Consulting Unavailable HIGHLANDER, JOY Reis Attending Unavailable HIGHLANDERJOY Consulting Unavailable SHAMMORORY Admitting Unavailable SHAMMO, RORY Attending Unavailable SHAMMO, RORY Consulting Unavailable MISC, DR TRAORE Primary Care Unavailable MISC, DR TRAORE Primary Care Unavailable MISC, DR TRAORE Admitting Unavailable MISC, DR TRAORE Attending Unavailable MISC, DR TRAORE Consulting Unavailable Jan Gagr Unavailable DOMENICA OLIVA Primary Care Physician HILARY GRANADO Referring Unavailable HILARY GRANADO Attending Unavailable Shawna Dudley DO Primary Care Provider Shawna Dudley DO Primary Care Provider [phone] MD Yo Blank Attending Provider [phone] Rumschlag, DO Shawna Primary Care Provider LAKESHIABrandyn LULY Reed Attending Unavailable GABY JUNE Attending Unavailable SHAMMO, RORY Referring Unavailable RUMSCHLAG, SHAWNA K Primary Care Unavailable SHAMMO, RORY Referring Unavailable RUMSCHLAG, SHAWNA K Primary Care Unavailable PETE SILVER E Attending Unavailable SILVER, PETE E Referring Unavailable RUMSCHLAG, SHAWNA K Primary Care Unavailable SILVER, PETE E Admitting Unavailable SILVER, PETE E Attending Unavailable RUMSCHLAG, SHAWNA K Referring Unavailable RUMSCHLAG, SHAWNA K Primary Care Unavailable NON STAFF Primary Care Unavailable Yo Blank Admitting Unavailable Yo Blank Attending Unavailable Myrtle Cerna Admitting Unavailable Myrtle Cerna Attending Unavailable Shammo, Rory T Primary Care Unavailable Rumschlag, Shawna Primary Care Unavailable DittYo dwyer Admitting Unavailable DittYo dwyer Attending Unavailable RUMSCHLAG, SHAWNA Referring Unavailable RUMSCHLAG, SHAWNA Primary Care Unavailable RUMSCHLAG, SHAWNA Referring Unavailable RUMSCHLAG, SHAWNA Primary Care Unavailable RUMSCHLAG, SHAWNA Primary Care Unavailable RUMSCHLAG, SHAWNA Primary Care Unavailable SIL FRANCE Attending Unavailable RUMSCHLAG, SHAWNA Referring Unavailable RUMSCHLAG, SHAWNA Primary Care Unavailable RUMSCHLAG, SHAWNA Referring Unavailable RUMSCHLAG, SHAWNA Primary Care Unavailable Allergies Allergy Classification Reported Allergen(s) Allergy Type Date of Onset Reaction(s) Facility (20 sources) cephalexin; Translations: [Keflex] Drug Allergy 3 [facility] Repository (4 sources) citalopram; Translations: [CeleXA] Drug Allergy 3 AOF, heart palpitation [facility] Repository (10 sources) Cephalexin; Translations: [CEPHALEXIN] Drug [facility] Work Phone: (20 sources) Citalopram; Translations: [CITALOPRAM] Drug Allergy 7 Hives, anaphylaxis [facility] (5 sources) metFORMIN Drug Allergy Unknown [facility] Other (16 sources) metFORMIN; Translations: [METFORMIN] Drug Allergy 3 Unknown [facility] (4 sources) POISON SAVANNAH EXTRACT; Translations: [POISON SAVANNAH EXTRACT] Drug Allergy 3 [facility] (1 source) Cephalexin Drug Allergy 4 [facility] Repository (1 source) Citalopram Drug Allergy 4 [facility] Repository (1 source) metFORMIN Drug Allergy 4 [facility] Repository (1 source) Metformin And Related Propensity to adverse reactions to drug 4 Other (See Comments) [facility] Medications Current Medications Medication Drug Class(es) Dates Sig (Normalized) Sig (Original) [id number] 200 actuat albuterol 0.09 mg/actuat metered dose [...] Active blood-glucose meter (TRUE METRIX GLUCOSE METER) [facility] (3 sources) Start: 9 blood-glucose meter (TRUE METRIX GLUCOSE METER) [facility] use to test BLOOD SUGAR TWICE DAILY 1 each 0 06/17/2018 Active cetirizine hydrochloride 10 mg oral tablet (12 sources) Histamine-1 Receptor Antagonist Start: 0 take 1 tablet by mouth once daily cetirizine (ZyrTEC) 10 mg tablet TAKE 1 TABLET BY MOUTH DAILY 30 tablet 5 02/06/2020 Active cholecalciferol 0.05 mg oral capsule (11 sources) Vitamin D Start: 2 take 1 capsule by mouth in the morning cholecalciferol, vitamin D3, 2,000 units capsule Take 1 capsule (2,000 Units total) by mouth in the morning. 0 04/09/2021 Active take 1 capsule by mo uth every twenty-four hours Vitamin D3 50 MCG (1999 UT) 1 capsule Orally Once a day [...] mg docusate sodium 100 mg oral capsule (6 sources) Start: 01-07-2023 docusate sodiu m (COLACE) 100 mg capsule Start: 01-07-2023 take 3 capsules by m outh every twenty-four hours Docusate Sodium 100 MG 3 CAPSULES Orally Once a day for 30 days Dec, Active trulicity 3 mg/0.5ml solution pen-injector (8 sources) GLP-1 Receptor Agonist Trulicity 3 MG/0.5ML as directed Subcutaneous WEEKLY Active DULoxetine 30 mg delayed release oral capsule (1 source) Serotonin and Norepinephrine Reuptake Inhibitor Start: 03-31-19 24 take 1 capsule by mouth in the morning DULoxetine (CYMBALTA) 30 mg capsule Take 1 capsule (30 mg total) by mouth in the morning. 30 capsule 0 03/31/2023 Active empagliflozin 25 mg oral tablet (20 sources) Sodium-Glucose Cotransporter 2 Inhibitor take 1 tablet by mouth in the morning empagliflozin (JARDIANCE) 25 mg tablet tablet Take 1 tablet (25 mg total) by mouth in the morning. 0 Active etonogestrel 68 mg drug implant (20 sources) Progestin Start: 10-15-19 19 Nexplanon 68 mg subcutaneous implant Refills(s) 0 [...] Active ferrous sulfate 325 mg oral tablet (8 sources) Start: 04-09-2020 take 1 tablet by mouth once daily ferrous sulfate 325 (65 FE) mg tablet TAKE 1 TABLET BY MOUTH DAILY 30 tablet 5 04/09/2020 Active fexofenadine hydrochloride 60 mg oral tablet (9 sources) Histamine-1 Receptor Antagonist take 1 tablet by mouth in the morning fexofenadine (ROS) 60 mg tablet Take 1 tablet (60 mg total) by mouth in the morning. 0 Active take 1 tablet by mouth once adele y Ros Allergy 180 MG 1 tablet Swallow whole with water; do not take with fruit juices. Orally Once a day Active FLUoxetine 40 mg oral capsule (20 [...] / neomycin 3.5 mg/ml / polymyxin b [id number] unt/ml otic solution (1 source) Aminoglycoside Antibacterial, Polymyxin-class Antibacterial, Corticosteroid Start: 10-22-2021 End: 10-29-2021 zijekpkz-uduwudywv-thdejyqhj isone (CORTISPORIN) 3.5-91039-[address] 4 drops into the left ear 3 times daily for 7 days Instill into left Ear TID x 7 days 10 mL 0 10/22/2021 10/29/2021 Active hydrOXYzine hydrochloride 25 mg oral tablet (5 sources) Antihistamine Start: 10-21-2017 take 1 tablet [...] hours as needed for pain. 0 Active take 1 tablet by elan th every eight hours at mealtime as needed Ibuprofen 800 MG 1 tablet with food or milk as needed Orally every 8 hrs Not-Taking/PRN lamoTRIgine 200 mg oral tablet (20 sources) Mood Stabilizer, Anti-epileptic Agent Start: 02-13-2019 take 1 tablet by mouth in the morning lamoTRIgine (LaMICtal) 200 mg tablet Take 1 tablet (200 mg total) by mouth in the morning. 0 02/13/2019 Active lisdexamfetamine dimesylate 70 mg oral capsule (20 sources) Central Nervous System Stimulant Start: 01-09-2022 [...] Active 10 ml methocarbamol 100 mg/ml injection (6 sources) Muscle Relaxant Start: 10-14-2018 Robaxin 100 mg/mL inj Refills(s) 0 Start Date: 10/14/18 Status: Ordered take 1 tablet by elan th three times daily methocarbamol (ROBAXIN) 500 MG tablet Ta ke 500 mg by mouth 3 times daily 0 Active montelukast 10 mg oral tablet (18 sources) Leukotriene Receptor Antagonist Start: 10-14-2018 take 1 tablet by mouth once daily montelukast (SINGULAIR) 10 mg tablet TAKE 1 TABLET BY MOUTH NIGHTLY 30 tablet 0 07/16/2020 Active rjcjbwop-frxm-BO-ca lcium &mins (THERAGRAN-M) 9 mg iron-400 mcg tablet (3 sources) qucinnfr-qsuv-AS -c alcium &mins (THERAGRAN-M) 9 mg iron-400 [...] 60 tablet 2 12/02/2022 Active NON FORMULARY (6 sources) NON FORMULARY Hair, Skin & Nails - 2 gummies in the morning 0 Active NON FORMULARY Ne osporin cream- applies to bilateral nostrils 3 times a day 0 Active omeprazole 20 mg delayed release oral capsule (5 sources) Proton Pump Inhibitor take 2 capsules [...] 30 days Jan, Active polyethylene glycol 3350 [id number] mg / potassium chloride 2970 mg / sodium bicarbonate 6740 mg / sodium chloride 5860 mg / sodium sulfate 36410 mg powder for oral solution (2 sources) [...] Nausea, # 20 tab(s), Refills(s) 0, Pharmacy: [id number], 157, cm, 03/10/19 12:21:00 EST, Height/Length Measured, 100.7, kg, 03/10/19 12:21:00 EST, Weight Measured Start Date: 06/13/19 Status: Ordered rizatriptan 10 mg oral tablet (20 sources) Serotonin-1b and Serotonin-1d Receptor Agonist Start: [...] Reductase Inhibitor take 1 tablet by mouth in the morning rosuvastatin (CRESTOR) 20 mg tablet Take 1 tablet (20 mg total) by mouth in the morning. 0 Active Rosuvastatin Leonardo cium Active 1 mg dose 1.5 ml semaglutide 1.34 mg/ml pen injector (12 sources) Start: 01-15-2022 semaglutide 1 mg/dose (2 mg/1.5 mL) pen injector Waiting for approval to take the 2mg dose not 1 dose 0 01/15/2022 Active Ozempic (0.25 or 0.5 MG/DOSE) 2 MG/1.5ML as directed Subcutaneous Not-Taking SUMAtriptan 100 mg oral tablet (20 sources) Serotonin-1b and Serotonin-1d Receptor Agonist Start: [...] 11/03/2018 Active take 1 tablet by elan every two hours as needed, then take 1 tablet by mouth twice daily as needed SUMAtriptan Succinate 25 MG 1 tablet at least 2 hours between doses as needed Orally Twice a day Active temazepam 15 mg oral capsule (5 sources) Benzodiazepine take 1 capsule by mouth [...] Status: Ordered take 2 tablets by mo [facility] every twenty-four hours tiZANidine HCl 4 MG 2 tablet Orally daily Active take 1 tablet by elan every twelve hours tiZANidine HCl 4 MG 1 tablet Orally TWICE A DAY Active topiramate 200 mg oral tablet (5 sources) take 1 tablet by mouth once [...] Active TRULICITY 3 mg/0.5 mL pen injector (3 sources) Start: 3 TRULICITY 3 mg/0.5 mL pen injector Injects on Sundays 0 10/15/2022 Active Ventolin HFA 90 mcg/inh Aerosol (1 source) Start: 9 Ventolin HFA 90 mcg/inh Aerosol Refill(s) 0 Start Date: 10/14/18 Status: Ordered Vitamin B Complex (3 sources) Start: 0 take 1 tablet by mouth once daily B COMPLEX-VITAMIN B12 tablet TAKE 1 TABLET BY MOUTH DAILY 30 tablet 5 01/16/2020 Active Vitamin D (13 sources) Vitamin D Active zonisamide 100 mg oral capsule (5 sources) Anti-epileptic Agent take 1 capsule by mouth once daily zonisamide (ZONEGRAN) 100 MG capsule Take 100 mg by mouth daily 0 Active Completed/Discontinued Medications Medication Drug Class(es) Dates Sig (Normalized) Sig (Original) Iron (20 sources) Iron Not-Taking/ PRN Iron Not-Taking Iron Active 1 ml ketorolac tromethamine 30 mg/ml cartridge (1 source) Nonsteroidal Anti-inflammatory Drug, Cyclooxygenase Inhibitor Start: 04-20-2023 End: 04-20-2023 ketorolac (TORADOL) injection 30 mg Start: 04-20-2023 End: 04-20-2023 ketorolac (TORADOL) injectio n 30 mg meloxicam 15 mg oral tablet (17 sources) Nonsteroidal Anti-inflammatory Drug take 1 tablet by mouth every twenty-four hours Meloxicam 15 MG 1 tablet Orally Once a day Not-Taking/PRN ondansetron 4 mg disintegrating oral tablet (1 source) Serotonin-3 Receptor Antagonist Start: 2021 End: 2021 ondansetron (ZOFRAN-ODT) disintegrating tablet 4 mg 2 ml orphenadrine citrate 30 mg/ml injection (1 source) Muscle Relaxant Start: 2023 End: 2023 orphenadrine (NORFLEX) injection 60 mg Start: 04-20-2023 End: 04-20-2023 orphenadrine (NORFLEX) injec tion 60 mg Ozempic (0.25 or 0.5 MG/DOSE ) 2 MG/1.5ML (8 sources) Ozempic (0.25 or 0.5 MG/DOSE) 2 MG/1.5ML as directed Subcutaneous Not-Taking/PRN Ozempic (0.25 or 0.5 MG/DOSE) 2 MG/1.5ML as directed Subcutaneous Not-Taking polyethylene glycol 3350 96980 mg powder for oral solution (7 sources) [...] with hyperglycemia] Chronic Diabetes mellitus without complication (3 sources) 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; Translations: [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s] Onset: 11-10-2017 11-10-2017 Chronic Diverticulosis and diverticulitis (3 sources) Diverticulitis; Translations: [Diverticulitis of intestine, part unspecified, without perforation or abscess without bleeding] 01-02-2020 Chronic E Codes: Fall (2 sources) Unspecified fall due to ice and snow, initial encounter; Translations: [Fall from other slipping, tripping, or stumbling] Onset: 04-20-2023 04-20-2023 Episodic Gastrointestinal hemorrhage (1 source) Hemorrhage of anus [...] Translations: [Constipation, unspecified] Onset: 03-02-2023 Episodic Other injuries and conditions due to external causes (1 source) Closed injury of head; Translations: [Unspecified injury of head, initial encounter] 04-20-2023 Episodic Other injuries and conditions due to external causes (1 source) Unspecified injury of head, initial encounter; Translations: [Unspecified injury of head, initial encounter] Onset: 04-20-2023 Episodic Other liver diseases (20 sources) Steatosis [...] Spondylosis; intervertebral disc disorders; other back problems (9 sources) Displacement of cervical intervertebral disc; Translations: [Other cervical disc displacement, unspecified cervical region] Onset: 09-21-2017 01-11-2018 Chronic Spondylosis; intervertebral disc disorders; other back problems (7 sources) 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; Translations: [Intervertebral disc 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] Onset: 12-02-2022 12-16-2022 Episodic Sprains and strains (2 sources) Strain of neck muscle; Translations: [Strain of muscle, fascia and tendon at neck level, initial encounter] Onset: 04-20-2023 04-20-2023 Episodic Unclassified (1 source) Hemorrhage of anus and rectum; Translations: [Hemorrhage of anus and rectum] Onset: 03-18-2023 Unclassified (1 source) Dietary counseling and surveillance; Translations: [Dietary counseling and surveillance] Onset: 03-05-2023 Past or Other Problems Problem Classification Problem Date Documented Da te Episodic/Chronic Biliary tract disease (3 sources) Acute cholecystitis; Translations: [Acute cholecystitis] Onset: 09-15-2016 09-15-2016 Episodic Complications of surgical procedures or medical care (3 sources) Abscess; Translations: [Infection following a procedure, other surgical site, initial encounter] Onset: 09-28-2016 09-28-2016 Episodic Immunizations and screening for infectious disease (1 source) Encounter for screening for other viral diseases; Translations: [ENC SCREENING FOR OTH VIRAL DZ] Onset: 02-25-2022 Episodic Lymphadenitis (3 sources) Axillary lymphadenopathy; Translations: [Localized enlarged lymph nodes] Onset: 05-10-2020 05-10-2020 Episodic Mood disorders (3 sources) Mood disorders Onset: 05-02-2020 05-02-2020 Other [...] IN LEFT ANKLE] Onset: 01-29-2022 Episodic Unclassified (3 sources) Onset: 02-10-2020 02-10-2020 Results Test Name Value Interpretation Reference Range Facility CT CERVICAL SPINE WO CONTRAS Ton 04-20-2023 CT CERVICAL SPINE WO CONTRAST EXAMINATION: CT OF THE CERVICAL SPINE WITHOUT CONTRAST; CT OF THE HEAD WITHOUT CONTRAST 04/20/2023 1:17 pm; 04/20/2023 1:16 pm TECHNIQUE: CT of the cervical spine was performed without the administration of intravenous contrast. Multiplanar reformatted images are provided for review. Automated exposure control, iterative reconstruction, and/or weight based adjustment of the mA/kV was utilized to reduce the radiation dose to as low as reasonably achievable.; CT of the head was performed without the administration of intravenous contrast. Automated exposure control, iterative reconstruction, and/or weight based adjustment of the mA/kV was utilized to reduce the radiation dose to as low as reasonably achievable. COMPARISON: None. HISTORY: ORDERING SYSTEM PROVIDED HISTORY: pain -Closed head injury/fall last night. TECHNOLOGIST PROVIDED HISTORY: pain -Closed head injury/fall last night. Decision Support Exception - unselect if not a suspected or confirmed emergency medical condition->Emergency Medical Condition ([place]); ORDERING SYSTEM PROVIDED HISTORY: closed head injury 2nd fall last night [place], occipital now frontal headache TECHNOLOGIST PROVIDED HISTORY: closed head injury 2nd fall last night [place], occipital now frontal headache Decision Support Exception - unselect if not a suspected or confirmed emergency medical condition->Emergency Medical Condition ([place]) FINDINGS: HEAD: BRAIN/VENTRICLES: There is no acute intracranial hemorrhage, mass effect or midline shift. No abnormal extra-axial fluid collection. The mcclure-white differentiation is maintained. There is no evidence of hydrocephalus. ORBITS: The visualized portion of the orbits demonstrate no acute abnormality. SINUSES: The visualized paranasal sinuses and mastoid air cells demonstrate no acute abnormality. SOFT TISSUES/SKULL: No acute abnormality of the visualized skull or soft tissues. CERVICAL SPINE: BONES/ALIGNMENT: There is no evidence of an acute cervical spine fracture. No traumatic malalignment. DEGENERATIVE CHANGES: Degenerative disc disease notable at C5-6. SOFT TISSUES: There is no prevertebral soft tissue swelling. IMPRESSION: No acute CT abnormality identified in the brain. No acute osseous abnormality identified in the cervical spine. Interpreted by: Andi Montoya MD Signed by: Andi Montoya MD 04/20/23 Final result [facility] CT Cervical spine WO contras ton 04-20-2023 Radiology Study observation (narrative) [facility] CT HEAD WO CONTRASTon 2023 CT HEAD WO CONTRAST EXAMINATION: CT OF THE CERVICAL SPINE WITHOUT CONTRAST; CT OF THE HEAD WITHOUT CONTRAST 04/20/2023 1:17 pm; 04/20/2023 1:16 pm TECHNIQUE: CT of the cervical spine was performed without the administration of intravenous contrast. Multiplanar reformatted images are provided for review. Automated exposure control, iterative reconstruction, and/or weight based adjustment of the mA/kV was utilized to reduce the radiation dose to as low as reasonably achievable.; CT of the head was performed without the administration of intravenous contrast. Automated exposure control, iterative reconstruction, and/or weight based adjustment of the mA/kV was utilized to reduce the radiation dose to as low as reasonably achievable. COMPARISON: None. HISTORY: ORDERING SYSTEM PROVIDED HISTORY: pain -Closed head injury/fall last night. TECHNOLOGIST PROVIDED HISTORY: pain -Closed head injury/fall last night. Decision Support Exception - unselect if not a suspected or confirmed emergency medical condition->Emergency Medical Condition ([place]); ORDERING SYSTEM PROVIDED HISTORY: closed head injury 2nd fall last night [place], occipital now frontal headache TECHNOLOGIST PROVIDED HISTORY: closed head injury 2nd fall last night [place], occipital now frontal headache Decision Support Exception - unselect if not a suspected or confirmed emergency medical condition->Emergency Medical Condition ([place]) FINDINGS: HEAD: BRAIN/VENTRICLES: There is no acute intracranial hemorrhage, mass effect or midline shift. No abnormal extra-axial fluid collection. The mcclure-white differentiation is maintained. There is no evidence of hydrocephalus. ORBITS: The visualized portion of the orbits demonstrate no acute abnormality. SINUSES: The visualized paranasal sinuses and mastoid air cells demonstrate no acute abnormality. SOFT TISSUES/SKULL: No acute abnormality of the visualized skull or soft tissues. CERVICAL SPINE: BONES/ALIGNMENT: There is no evidence of an acute cervical spine fracture. No traumatic malalignment. DEGENERATIVE CHANGES: Degenerative disc disease notable at C5-6. SOFT TISSUES: There is no prevertebral soft tissue swelling. IMPRESSION: No acute CT abnormality identified in the brain. No acute osseous abnormality identified in the cervical spine. Interpreted by: Andi Montoya MD Signed by: Andi Montoya MD 04/20/23 Final result [facility] CT Head WO contraston 2023 Radiology Study observation (narrative) [facility] No Panel Informationon 04-[address] abnormal ity identified in the brain. No acute osseous abnormality identified in the cervical spine. [facility] EXAMINATION: CT OF THE CERVICAL SPINE WITHOUT CONTRAST; CT OF THE HEAD WITHOUT CONTRAST 04/20/2023 1:17 pm; 04/20/2023 1:16 pm TECHNIQUE: CT of the cervical spine was performed without the administration of intravenous contrast. Multiplanar reformatted images are provided for review. Automated exposure control, iterative reconstruction, and/or weight based adjustment of the mA/kV was utilized to reduce the radiation dose to as low as reasonably achievable.; CT of the head was performed without the administration of intravenous contrast. Automated exposure control, iterative reconstruction, and/or weight based adjustment of the mA/kV was utilized to reduce the radiation dose to as low as reasonably achievable. COMPARISON: None. HISTORY: ORDERING SYSTEM PROVIDED HISTORY: pain -Closed head injury/fall last night. TECHNOLOGIST PROVIDED HISTORY: pain -Closed head injury/fall last night. Decision Support Exception - unselect if not a suspected or confirmed emergency medical condition->Emergency Medical Condition ([place]); ORDERING SYSTEM PROVIDED HISTORY: closed head injury 2nd fall last night [place], occipital now frontal headache TECHNOLOGIST PROVIDED HISTORY: closed head injury 2nd fall last night [place], occipital now frontal headache Decision Support Exception - unselect if not a suspected or confirmed emergency medical condition->Emergency Medical Condition ([place]) FINDINGS: HEAD: BRAIN/VENTRICLES: There is no acute intracranial hemorrhage, mass effect or midline shift. No abnormal extra-axial fluid collection. The mcclure-white differentiation is maintained. There is no evidence of hydrocephalus. ORBITS: The visualized portion of the orbits demonstrate no acute abnormality. SINUSES: The visualized paranasal sinuses and mastoid air cells demonstrate no acute abnormality. SOFT TISSUES/SKULL: No acute abnormality of the visualized skull or soft tissues. CERVICAL SPINE: BONES/ALIGNMENT: There is no evidence of an acute cervical spine fracture. No traumatic malalignment. DEGENERATIVE CHANGES: Degenerative disc disease notable at C5-6. SOFT TISSUES: There is no prevertebral soft tissue swelling. [facility] Andi Montoya MD - 04/20/2023 EXAMINATION: CT OF THE CERVICAL SPINE WITHOUT CONTRAST; CT OF THE HEAD WITHOUT CONTRAST 04/20/2023 1:17 pm; 04/20/2023 1:16 pm TECHNIQUE: CT of the cervical spine was performed without the administration of intravenous contrast. Multiplanar reformatted images are provided for review. Automated exposure control, iterative reconstruction, and/or weight based adjustment of the mA/kV was utilized to reduce the radiation dose to as low as reasonably achievable.; CT of the head was performed without the administration of intravenous contrast. Automated exposure control, iterative reconstruction, and/or weight based adjustment of the mA/kV was utilized to reduce the radiation dose to as low as reasonably achievable. COMPARISON: None. HISTORY: ORDERING SYSTEM PROVIDED HISTORY: pain -Closed head injury/fall last night. TECHNOLOGIST PROVIDED HISTORY: pain -Closed head injury/fall last night. Decision Support Exception - unselect if not a suspected or confirmed emergency medical condition->Emergency Medical Condition (MA); ORDERING SYSTEM PROVIDED HISTORY: closed head injury 2nd fall last night parking [place], occipital now frontal headache TECHNOLOGIST PROVIDED HISTORY: closed head injury 2nd fall last night parking [place], occipital now frontal headache Decision Support Exception - unselect if not a suspected or confirmed emergency medical condition->Emergency Medical Condition (MA) FINDINGS: HEAD: BRAIN/VENTRICLES: There is no acute intracranial hemorrhage, mass effect or midline shift. No abnormal extra-axial fluid collection. The mcclure-white differentiation is maintained. There is no evidence of hydrocephalus. ORBITS: The visualized portion of the orbits demonstrate no acute abnormality. SINUSES: The visualized paranasal sinuses and mastoid air cells demonstrate no acute abnormality. SOFT TISSUES/SKULL: No acute abnormality of the visualized skull or soft tissues. CERVICAL SPINE: BONES/ALIGNMENT: There is no evidence of an acute cervical spine fracture. No traumatic malalignment. DEGENERATIVE CHANGES: Degenerative disc disease notable at C5-6. SOFT TISSUES: There is no prevertebral soft tissue swelling. IMPRESSION: No acute CT abnormality identified in the brain. No acute osseous abnormality identified in the cervical spine. [facility] [email or web address] No Panel InformationOrdered By: Andi Montoya on 04-20-2023 [facility] [email or web address] Work Phone: Glucose Glucometer (BldC) [M ass/Vol]on 03-27-2023 Glucose [Mass/Vol] 151 mg/dL High 65-99 [facility] Glucose Poct Glucometerson 0 03-18-2023 Commemt1 Glu2: Cleaned Meter Normal [facility] Comment on above: Result Comment: PERF ORMED BY: [place] [address] PATHOLOGIST TRANSPORTATION SECURITY SCREENER SHA VALERA M.D. Performed By: #### G LULS #### Point of Care testing , Glucose [Mass/Vol] 87 mg/dL Normal [facility] Comment on above: Result Comment: [facility] Glucose Reference Range is dependent on time and content of last meal. Glucose of more than 200 mg/dL in a nonstressed, ambulatory subject supports the diagnosis of Diabetes Mellitus. Performed By: #### G LULS #### Point of Care testing , HCG,Urineon 03-18-2023 Beta HCG ( test) Ql (U) Negative Normal [facility] Comment on above: Result Comment: PERF ORMED BY: [place] [address] PATHOLOGIST TRANSPORTATION SECURITY SCREENER SHA VALERA M.D. Performed By: #### U HCG #### [address] CBC AND AUTO DIFFon 03-16-19 24 ABSOLUTE BASOPHIL 0.0 X10E9/L Normal 0.0-0.2 [facility] Comment on above: Performed By: #### C JAHAIRA BURGESS, 55359-2, TSHR #### [facility] ([id number]) [address] [place] [address] ABSOLUTE NEUTROPHIL 7.7 X10E9/L High 1.5-6.6 [facility] Comment on above: Performed By: #### C JAHAIRA BURGESS, 50241-8, TSHR #### [facility] ([id number]) [address] [place] [address] Basophils/100 WBC (Bld) 0.3 % Normal [facility] Comment on above: Performed By: #### C JAHAIRA BURGESS, 95223-1, TSHR #### [facility] ([id number]) [address] [facility] [facility] [address] [place] [address] Eosinophils (Bld) [#/Vol] 0.1 10*3/uL Normal 0.0-0.4 [facility] Comment on above: Performed By: #### Terrell BURGESS CMP, 00300-7, TSHR #### [facility] ([id number]) [address] [place] [address] Eosinophils/100 WBC (Bld) 1.1 % Normal [facility] Comment on above: Performed By: #### Terrell BURGESS CMP, 23112-2, TSHR #### [facility] ([id number]) [address] [place] [address] Erythrocyte distribution width (RBC) [Ratio] 14.6 % Normal 11.5-15.0 [facility] Comment on above: Performed By: #### Terrell BURGESS CMP, 71544-8, TSHR #### [facility] ([id number]) [address] [place] [address] Hematocrit (Bld) [Volume fraction] 45.7 % Normal 35-47 [facility] Comment on above: Performed By: #### Terrell BURGESS CMP, 48779-0, TSHR #### [facility] ([id number]) [address] [place] [address] Hemoglobin (Bld) [Mass/Vol] 15.0 g/dL Normal 11.7-15.5 [facility] Comment on above: Performed By: #### Terrell BURGESS CMP, 85489-3, TSHR #### [facility] ([id number]) [address] [place] [address] Lymphocytes (Bld) [#/Vol] 2.4 10*3/uL Normal 1.0-3.5 [facility] Comment on above: Performed By: #### C JAHAIRA BUGRESS, 74721-3, TSHR #### [facility] ([id number]) [address] [place] [address] Lymphocytes/100 WBC (Bld) 22.1 % Normal [facility] Comment on above: Performed By: #### C ADITYA CMP, 60917-6, TSHR #### [facility] ([id number]) [address] [facility] [address] [place] [address] MCH (RBC) [Entitic mass] 29.0 pg Normal 27-34 [facility] Comment on above: Performed By: #### C ADITYA CMP, 31537-3, TSHR #### [facility] ([id number]) [address] [place] [address] MCHC (RBC) [Mass/Vol] 32.8 g/dL Normal 32-36 [facility] Comment on above: Performed By: #### C JAHAIRA BURGESS, 43290-2, TSHR #### [facility] ([id number]) [address] [place] [address] MCV (RBC) [Entitic vol] 88 fL Normal 80-100 [facility] Comment on above: Performed By: #### Terrell BURGESS CMP, 12723-8, TSHR #### [facility] ([id number]) [address] [place] [address] Monocytes (Bld) [#/Vol] 0.6 10*3/uL Normal 0-0.9 [facility] Comment on above: Performed By: #### C ADITYA CMP, 91779-8, TSHR #### [facility] ([id number]) [address] [place] [address] Monocytes/100 WBC (Bld) 5.7 % Normal [facility] Comment on above: Performed By: #### C ADITYA, CMP, 02744-4, TSHR #### [facility] ([id number]) [address], [address] [place] [address] Neutrophils/100 WBC (Bld) 70.8 % Normal [facility] Comment on above: Performed By: #### C BCA, CMP, 12773-1, TSHR #### [facility] ([id number]) [address], [address] [place] [address] Platelet mean volume (Bld) [Entitic vol] 9.7 fL Normal 7-12 [facility] Comment on above: Performed By: #### Terrell BURGESS, CMP, 43611-2, TSHR #### [facility] ([id number]) [address] [facility] [address] [place] [address] Platelets (Bld) [#/Vol] 303 10*3/uL Normal 150-450 [facility] Comment on above: Performed By: #### Terrell BCA, CMP, 79180-4, TSHR #### [facility] ([id number]) [address] [place] [address] RBC COUNT 5.17 X10E12/L Normal 3.80-5.20 [facility] Comment on above: Performed By: #### Terrell BCA, CMP, 67939-9, TSHR #### [facility] ([id number]) [address] [place] [address] WBC (Bld) [#/Vol] 10.9 10*3/uL Normal 4.0-11.0 [facility] Comment on above: Performed By: #### C BCA, CMP, 67929-0, TSHR #### [facility] ([id number]) [address], [address] [place] [address] COMPREHENSIVE METABOLIC PANE Dirk 03-16-2023 Albumin [Mass/Vol] 4.7 g/dL Normal 3.2-5.3 [facility] Comment on above: Performed By: #### C BCA, CMP, 27780-8, TSHR #### [facility] ([id number]) [address], [address] [place] [address] ALP [Catalytic activity/Vol] 74 U/L Normal 39-130 [facility] Comment on above: Performed By: #### C BCA, CMP, 33549-4, TSHR #### [facility] ([id number]) [address], [address] [place] [address] ALT [Catalytic activity/Vol] 22 U/L Normal 0-31 [facility] Comment on above: Performed By: #### C BCA, CMP, 40615-8, TSHR #### [facility] ([id number]) [address], [address] [place] [address] Anion gap [Moles/Vol] 12 mmol/L Normal 5-15 [facility] Comment on above: Performed By: #### C BCA, CMP, 72916-6, TSHR #### [facility] ([id number]) [address] [place] [address] AST [Catalytic activity/Vol] 20 U/L Normal 0-41 [facility] Comment on above: Performed By: #### C BCA, CMP, 74388-9, TSHR #### [facility] ([id number]) [address], [address] [place] [address] Bilirubin [Mass/Vol] 0.5 mg/dL Normal 0.3-1.2 [facility] Comment on above: Performed By: #### C BCA, CMP, 15558-5, TSHR #### [facility] ([id number]) [address], [address] [place] [address] Calcium [Mass/Vol] 9.9 mg/dL Normal 8.5-10.5 [facility] Comment on above: Performed By: #### C JAHAIRA BURGESS, 35968-8, TSHR #### [facility] ([id number]) [address] [place] [address] Chloride [Moles/Vol] 105 mmol/L Normal 98-109 [facility] Comment on above: Performed By: #### C JAHAIRA BURGESS, 27346-3, TSHR #### [facility] ([id number]) [address], [address] [place] [address] CO2 [Moles/Vol] 25 mmol/L Normal 22-32 [facility] Comment on above: Performed By: #### C JAHAIRA BURGESS, 92241-6, TSHR #### [facility] ([id number]) [address] [place] [address] Creatinine [Mass/Vol] 0.74 mg/dL Normal 0.40-1.00 [facility] Comment on above: Result Comment: METH OD TRACEABLE TO IDMS STANDARD Performed By: #### C JAHAIRA BURGESS, 28045-7, TSHR #### [facility] ([id number]) [address] [place] [address] eGFR (CKD-EPI) NON-RACE DEPENDENT >90 Normal >59 [facility] Comment on above: Result Comment: Reported eGFR is based on the CKD-EPI 2020 equation that does not use a race coefficient. Performed By: #### C JAHAIRA BURGESS, 69305-4, TSHR #### [facility] ([id number]) [address] [place] [address] Glucose [Mass/Vol] 143 mg/dL High 65-99 [facility] Comment on above: Performed By: #### C ADITYA, JAHAIRA, 59323-5, TSHR #### [facility] ([id number]) [address] [address] [place] [address] Potassium [Moles/Vol] 3.8 mmol/L Normal 3.5-5.0 [facility] Comment on above: Performed By: #### C ADITYA, CMP, 30032-6, TSHR #### [facility] ([id number]) [address] [place] [address] Protein [Mass/Vol] 7.8 g/dL Normal 6.0-8.0 [facility] Comment on above: Performed By: #### Terrell BURGESS, CMP, 02881-1, TSHR #### [facility] ([id number]) [address] [place] [address] Sodium [Moles/Vol] 142 mmol/L Normal 134-146 [facility] Comment on above: Performed By: #### Terrell BURGESS, CMP, 06481-6, TSHR #### [facility] ([id number]) [address], [address] [place] [address] Urea nitrogen [Mass/Vol] 17 mg/dL Normal 5-23 [facility] Comment on above: Performed By: #### C ADITYA, CMP, 60376-8, TSHR #### [facility] ([id number]) [address] [place] [address] HGB A1C (GLYCO-HGB)on 2023 Glucose [Mass/Vol] 117 mg/dL Normal [facility] Comment on above: Performed By: #### Terrell BURGESS, JAHAIRA, 25525-6, TSHR #### [facility] ([id number]) [address] [place] [address] HbA1c (Bld) [Mass fraction] 5.7 % High 4.4-5.6 [facility] Comment on above: Result Comment: NOTE ADA Guidelines Result HgbA1c Normal : less than 5.7 % Prediabetes : 5.7 % to 6.4 % Diabetes : > 6.4 % Use with caution in patients with abnormal hemoglobin variants as the half-life of red blood cells and in vivo glycation rates are affected. Performed By: #### Terrell BURGESS CMP, 23580-4, TSHR #### [facility] ([id number]) [address] [place] [address] Lipid 1996 panelon 4 Cholesterol [Mass/Vol] 132 mg/dL Low 150-200 [facility] Comment on above: Performed By: #### Terrell BURGESS CMP, 26835-8, TSHR #### [facility] ([id number]) [address] [place] [address] Cholesterol in HDL [Mass/Vol] 58 mg/dL Normal >39 [facility] Comment on above: Result Comment: HDL <40 mg/dL - High Risk HDL > or = 40mg/dL- Desirable HDL >60 mg/dL - Negative Risk Performed By: #### Terrell BURGESS CMP, 17416-7, TSHR #### [facility] ([id number]) [address] [place] [address] Cholesterol in LDL [Mass/Vol] 51 mg/dL Normal <130 [facility] Comment on above: Result Comment: LDL <100 mg/dL - Desirable LDL >160 mg/dL - High Risk Performed By: #### Terrell BURGESS CMP, 56374-6, TSHR #### [facility] ([id number]) [address] [place] [address] Cholesterol in VLDL [Mass/Vol] 23 mg/dL Normal 0-30 [facility] Comment on above: Performed By: #### Terrell BURGESS, JAHAIRA, 27987-9, TSHR #### [facility] ([id number]) [address] [place] [address] CHOLESTEROL:HDL 2.3 Normal 1.0-5.0 [facility] Comment on above: Performed By: #### C BCA, CMP, 88208-7, TSHR #### [facility] ([id number]) [address] [place] [address] Triglyceride [Mass/Vol] 114 mg/dL Normal 27-150 [facility] Comment on above: Performed By: #### C BCA, CMP, 42556-7, TSHR #### [facility] ([id number]) [address], [address] [place] [address] MAMM SCREENING BILATERAL W C 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 03-16-2023 MAMM SCREENING BILATERAL W CAD MAMM [...] 3:25 PM 0A a ADDITIONAL I Normal [facility] TSH WITH REFLEXon 03-16-2023 TSH 0.55 uIU/mL Normal 0.49-4.67 [facility] Comment on above: Performed By: #### C BCA, CMP, 26831-5, TSHR #### [facility] ([id number]) [address] [address] [place] [address] PT - Assessmentson 3 PT - Assessments [id number]#1.00CD:12 [address] [facility] [address] - Assessmentson 3 ST - Assessments [id number]#1.00CD:127 [facility] Consenton 09-25-2022 Consent [id number]#1.00CD:127 [facility] Outside Recordson 2022 Outside Records [id number]#1.00CD:[address] [facility] [address] - Orderson 2022 ST - Orders [id number]#1.00CD:[address] [facility] [address] - Orders [id number]#1.00CD:127 [facility] ST - Otheron 2022 ST - Other [id number]#1.00CD:127 [facility] PAP ACOG PANEL 2: 30 to 65on 05-27-2022 . . Normal [facility] Comment on above: Result Comment: Perf ormed at: WB Performed By: #### 4 [id number] #### [facility] [address] [place] [address] Dr. Do Aguilar Age Gdln ACOG Testing 30-65 [facility] Comment on above: Performed By: #### 4 [id number] #### [facility] [address] [place] [address] Dr. Do Aguilar DIAGNOSIS: Comment Normal [facility] Comment on above: Result Comment: NEGA TIVE FOR INTRAEPITHELIAL LESION OR MALIGNANCY. Performed at: WB Performed By: #### 4 [id number] #### [facility] [address] [place] [address] Dr. Do Aguilar HPV Aptima Negative Normal Negative [facility] Comment on above: Result Comment: This nucleic acid amplification test detects fourteen high-risk HPV types (16,18,31,33,35,39,45,51,52,56,58,59,66,68) without differentiation. Performed at: =G Performed By: #### 4 [id number] #### [facility] [address] [place] [address] Dr. Do Aguilar HPV Genotype Reflex Comment Normal [facility] Comment on above: Result Comment: Crit eria not met, HPV Genotype not performed. Performed at: WB Performed By: #### 4 [id number] #### [facility] [address] [place] [address] Dr. Do Aguilar Methodology: Comment Normal [facility] Comment on above: Result Comment: This liquid based ThinPrep(R) pap test was screened with the use of an image guided system. Performed at: WB Performed By: #### 4 [id number] #### [facility] [address] [place] [address] Dr. Do Aguilar Note: Comment Normal [facility] Comment on above: Result Comment: The Pap smear is a screening test designed to aid in the detection of premalignant and malignant conditions of the uterine cervix. It is not a diagnostic procedure and should not be used as the sole means of detecting cervical cancer. Both false-positive and false-negative reports do occur. . Performed at: WB Performed By: #### 4 [id number] #### [facility] [address] [place] [address] Dr. Do Aguilar Performed by: Comment Normal [facility] Comment on above: Result Comment: Melissa Ramachandran, Medical Technologist Microbiology (ASCP) Performed at: WB Performed By: #### 4 [id number] #### [facility] [address] [place] [address] Dr. Do Aguilar Specimen adequacy: Comment Normal [facility] Comment on above: Result Comment: Sati sfactory for evaluation. Endocervical and/or squamous metaplastic cells (endocervical component) are present. Performed at: WB Performed By: #### 4 [id number] #### [facility] [address] [place] [address] Dr. Do Aguilar HEPATITIS C AB CASCADE TO QU ANT PCR GENOon 02-18-2022 HCV AB <0.1 Normal 0.0-0.9 [facility] Comment on above: Performed By: #### H EPCASC #### [facility] [address] [place] [address] Dr. Do Aguilar Interpretation: Comment Normal [facility] Comment on above: Result Comment: Nega tive Not infected with HCV, unless recent infection is suspected or other evidence exists to indicate HCV infection. Performed By: #### H EPCASC #### [facility] [address] [place] [address] Dr. Do Aguilar LIVER PROFILEon 02-17-2022 Albumin [Mass/Vol] 3.6 g/dL Normal 3.4-5.0 [facility] Comment on above: Performed By: #### L IVER #### [facility] [address] [place] [address] Dr. Do Aguilar Albumin/Globulin [Mass ratio] 0.9 {ratio} Normal [facility] Comment on above: Performed By: #### L IVER #### [facility] [address] [place] [address] Dr. Do Aguilar ALP [Catalytic activity/Vol] 79 U/L Normal 46-[address] [facility] Comment on above: Performed By: #### L IVER #### [facility] [address] [place] [address] Dr. Do Aguilar ALT [Catalytic activity/Vol] 51 U/L Normal 14-59 [facility] Comment on above: Performed By: #### L IVER #### [facility] [address] [place] [address] Dr. Do Aguilar AST [Catalytic activity/Vol] 33 U/L Normal 15-37 [facility] Comment on above: Performed By: #### L IVER #### [facility] [address] [place] [address] Dr. Do Aguilar BILI, CONJUGATED 0.1 mg/dL Normal 0.0-0.2 [facility] Comment on above: Performed By: #### L IVER #### [facility] [address] [place] [address] Dr. Do Aguilar Bilirubin [Mass/Vol] 0.3 mg/dL Normal 0.2-1.0 [facility] Comment on above: Performed By: #### L IVER #### [facility] [address] [place] [address] Dr. Do Aguilar Globulin (S) [Mass/Vol] 4.2 g/dL Normal [facility] Comment on above: Performed By: #### L IVER #### [facility] [address] [place] [address] Dr. Do Aguilar Protein [Mass/Vol] 7.8 g/dL Normal 6.4-8.2 [facility] Comment on above: Performed By: #### L IVER #### [facility] [address] [place] [address] Dr. Do Aguilar TSHon 02-17-2022 TSH 0.457 uIU/mL Normal 0.358-3.74 0 [facility] Comment on above: Performed By: #### T SH #### [facility] [address] [place] [address] Dr. Do Aguilar VITAMIN B12on 02-17-2022 Cobalamin (Vitamin B12) [Mass/Vol] 1864.0 pg/mL Critically high 193.0-986. 0 [facility] Comment on above: Performed By: #### V ITB12 #### [facility] [address] [place] [address] Dr. Do Aguilar History and Physicalon 12-04 History and Physical [id number]#[facility] - Surgeon/P godwin 12-04-2016 Operative Report - Surgeon/Physician [id number]#1.00[facility] Coding Summaryon 11-26-2016 Coding Summary CODING DATE: 017 [facility] STATUS: Home PAYOR: Medicaid HMO ADMIT DX: REASON FOR VISIT DX: R10.13 Epigastric pain R10.11 Right upper quadrant pain FINAL DX: PRINCIPAL: K29.70 Gastritis, unspecified, without bleeding SECONDARY: PROCEDURES DOCTOR NAME DATE 84660 Esophagogastroduodenoscopy , Juan Ramon Jean MD 11/21/2016 flexible, transoral; with biopsy, single or multiple NOTE: The code number assigned matches the documented diagnosis and / or procedure in the patient's chart. However, the narrative phrase printed from the coding software may appear abbreviated, or result in slightly different terminology. Coded By: Rosalba Laureano Date Saved: 11/26/2016 01:09 pm [facility] Consent Formson 11-24-2016 Consent Forms [id number]#1.00[facility] Intraoperative Noteon 2016 Intraoperative Note [id number]#1.00[facility] Intraoperative Note [id number]#1.00[facility] Operative Report - Surgeon/P godwin 11-24-2016 Operative Report - Surgeon/Physician DATE OF PROCEDURE: 11/21/2016PREOPERATIVE DIAGNOSIS: Epigastric pain/right upper quadrant pain.POSTOPERATIVE DIAGNOSIS: Moderate gastritis.PROCEDURE PERFORMED: EGD with biopsy x1 from the antrum of the stomach forH. pylori testing.SURGEON: Juan Ramon Jean M.D.ANESTHESIA: Conscious sedation with Versed 6 mg IV, Demerol 50 mg IV.FINDINGS: As above.DISPOSITION: To the [facility] area in fair condition.INDICATIONS: The patient is [...] in two weeks.Juan Ramon Jean M.D.JOB #: [id number]: 11/21/2016T: 11/21/2016[Electronically Signed on: 12/03/2016 07:09 EDT] Juan Ramon Jean MD Generated Domain User for [id number][Verified on: 12/03/2016 07:09 EDT] Juan Ramon Jean MD[Transcribed on: 11/21/2016 11:37 EDT][facility] Telemetry Stripson 7 Telemetry Strips [id number]#1.00[facility] Telemetry Strips [id number]#1.00[facility] H. Pylori Gastricon 11-22-19 H. Pylori Rico Int Ctrl Pass Normal [facility] Comment on above: Order Comment: H. (A NTRUM) Result Comment: Pass Performed By: #### 2 [id number] ####[facility] (DEFAULT)[address] [place] [address] H. Pylori Gastric Negative Normal Negative [facility] Comment on above: Order Comment: H. (A NTRUM) Result Comment: Nega tive Performed By: #### [id number] ####[facility] (DEFAULT)[address] [place] [address] Inpatient Clinical Summaryon 11-21-2016 Inpatient [facility] SURGERYClinical Discharge SummaryPERSON INFORMATIONName PEE SR Age 36 Years 80Sex FEMALE Language Malagasy PCP DEFRANCE, DAVIDMarital Status Med Service Ambulatory SurgeryN [id number] Acct# Arrival 11/21/16 07:22:21Visit Reason EGD - EPIGASTRIC ABDOMINAL PAIN Acuity LOS 013 23:19Address:[address] [facility] [address]Espagwa:PROVIDER INFORMATIONVITALS INFORMATIONVital Sign Triage LatestTemp OralTemp Temporal 36.4 DegC 36.4 DegCTemp IntravascularTemp AxillaryTemp Itqimu84 Sat 100 % 97 %Respiratory Rate 16 [...] INFORMATIONDischarge Disposition:Discharge Location:DEPART REASON INCOMPLETE INFORMATIONPATIENT EDUCATION INFORMATIONInstructions:Fo llow up:With: Address: When:Juan Ramon Jean [address] [place] [address] Business (1) Within 2 to 4 weeksComments:Call for follow up appointmentWith: Address: When:DOMENICA OLIVA [facility] [place] [address] Business (1)DIAGNOSISAcute gastritisComment:PHYS DOC NOTES [facility] Inpatient Patient Summaryon 11-21-2016 Inpatient Patient Summary [place] [id number] [place] [id number] patient Discharge InstructionsName: PEE SRDOB: [birth year] Address: [address] [place] [address] Care Provider:Name: DOMENICA OLIVAPhone: Discharge Diagnosis: Acute [...] or business decisions or sign any legal documentsMercy Health St. [facility] would like to thank you for allowing us to assist you with your healthcare needs. The following includes patient education materials and information regarding your injury/illness.PEE SR has been given the following list of follow-up instructions, prescriptions, and patient education materials:Follow-up InstructionsWith: Address: When:Juan Ramon Jean [address] [place] [id number] [facility] (7) Within 2 to 4 weeksComments:Call for follow up appointmentWith: Address: When:DOMENICA HAZEL [address] [place] [address] [facility] ()MedicationsDuring the course of your visit, your medication [...] to relieve symptoms and feel better. Usual CauseIllnessVirusesBacteri a Antibiotic NeededCold/Runny Nose NOBronchitis/Chest Cold (in otherwise healthy children and adults) NOWhooping Cough YesFlu NOStrep Throat YesSore Throat (except strep) NOFluid in the middle ear (otitis media with effusion) NOUrinary Tract Infection YesAntibiotics Aren?t Always the Answerwww.cdc.gov/getsmart GET SMART Know When Antibiotics [place]ony.[place]. Department of Health and Human ServicesCenters for Disease Control and Prevention October 2013 [facility] MAGR Endo Intraoperative Rec ordon 11-21-2016 MAGR Endo Intraoperative Record MAGR Endo Intra-Op Record Summary Primary Physician: Juan Ramon Jean MD Finalized Date/Time: 11/21/16 08:37:38 Pt. Name: PEE SR Mary/Sex: 1980 FEMALE Med Rec #: [id number] Physician: Juan Ramon Jean MD Financial #: [id number] Pt. Type: D Room/Bed: / Admit/Disch: 11/21/16 [...] Jane RN Role Performed Surgeon - Primary Electron Gun Assembler Electron Gun Assembler Time In 11/21/16 08:06:00 11/21/16 08:06:00 11/21/16 [...] Unfinalizing Freetext Reason for [facility]finalizing 11/21/16 08[facility]37 [facility] MAGR Endo Postoperative Benjamin rdon 11-21-2016 MAGR Endo Postoperative Record MAGR Endo Phase II Record Summary Primary Physician: Juan Ramon Jean MD Finalized Date/Time: 11/21/16 10:02:07 Pt. Name: PEE SR/Sex: 1980 FEMALE Med Rec #: [id number] Physician: Juan Ramon Jean MD Financial #: [id number] Pt. Type: D Room/Bed: / Admit/Disch: 11/21/16 [...] have to because of my back problems. 0920 Disch instructions reviewed with pt and girlfriend, verbalized understanding. Copy of instructions given to pt. Pt states she'll have to do cooking tonight because she has 5 kids-reminded again what is stated in disch. instructions. 0930 Assisted up to BR to vd qs. Enc to C&DB, does effectively. IV discont, bleeding controlled. Pt dressing. 0945 Disch per W/C to private car. Finalized By: Cammy Barroso RN Document Signatures Signed By: Cammy Barroso RN 11/21/16 10:02 [facility] MAGR Endo Preoperative Recor don 11-21-2016 MAGR Endo Preoperative Record MAGR Endo Pre-Op Record Summary Primary Physician: Juan Ramon Jean MD Finalized Date/Time: 11/21/16 08:27:58 Pt. Name: PEE SR/Sex: 1980 FEMALE Med Rec #: [id number] Physician: Juan Ramon Jean MD Financial #: [id number] Pt. Type: D Room/Bed: / Admit/Disch: 11/21/16 [...] Departure 11/21/16 08:00:00 Last Modified By: Cammy Barroso RN 11/21/16 08:27:57 Post-Care Text: Patient is [...] Signed By: Cammy Barroso RN 11/21/16 08:27 [facility] Test Urine 1on U Preg Negative [facility] Comment on above: Result Comment: Nega tive Performed By: #### [id number] ####[facility] (DEFAULT)[address] [place] [address] U Preg Internal Control Pass [facility] Comment on above: Result Comment: Pass Performed By: #### [id number] ####[facility] (DEFAULT)[address] [place] [address] Vital Signs Date Time Vital Sign Value Performing Clinician Facility 04-20-2023 12:41-0500 Body mass index (BMI) [Ratio] 36.49 kg/m2 Shawnajack SofiaUniPay DO Work Phone: [facility] 04-20-2023 12:41-0500 Body weight 93.44 kg Shawna [employer] DO Work Phone: [facility] 04-20-2023 12:41-0500 Diastolic blood pressure 76 mm[Hg] Shawna Rumschlag DO Work Phone: [facility] [email or web address] 04-20-2023 12:41-0500 Heart rate 83 /min Shawna Rumschlag DO Work Phone: [facility] [email or web address] 04-20-2023 12:41-0500 Respiratory rate 16 /min Shawna Rumschlag DO Work Phone: [facility] [email or web address] 04-20-2023 12:41-0500 SaO2% (BldA) [Mass fraction] 98 % Shawna Rumschlag DO Work Phone: [facility] [email or web address] 04-20-2023 12:41-0500 Systolic blood pressure 129 mm[Hg] Shawna Rumschlag DO Work Phone: [facility] [employer] [facility] 04-20-2023 12:39-0500 Body temperature 97.3 [degF] Shawna Rumschlag DO Work Phone: [facility] 03-18-2023 11:30-0500 Diastolic blood pressure 84 mm[Hg] MD Yo Blank Work Phone: [facility] 03-18-2023 11:30-0500 Heart rate 95 /min MD Yo Blank Work Phone: [facility] 03-18-2023 11:30-0500 Respiratory rate 16 /min MD Yo Blank Work Phone: [facility] 03-18-2023 11:30-0500 SaO2% (BldA) [Mass fraction] 99 % MD Yo Blank Work Phone: [facility] 03-18-2023 11:30-0500 Systolic blood pressure 123 mm[Hg] MD Yo Blank Work Phone: [facility] 03-05-2023 09:15-0500 Body height 160.02 cm Gayathri Adams Other [employer] Other 03-05-2023 09:15-0500 Body mass index (BMI) [Ratio] 37.57 kg/m2 Gayathri Scally Other [employer] Other 03-05-2023 09:15-0500 Body weight 96.21 kg Gayathri Scally Other [employer] Other 03-05-2023 09:15-0500 Diastolic blood pressure 89 mm[Hg] Gayathri Scally Other [employer] Other 03-05-2023 09:15-0500 Respiratory rate 18 /min Gayathri Scally Other [employer] Other 03-05-2023 09:15-0500 SaO2% (BldA) [Mass fraction] 96 % Gayathri Scally Other [employer] Other 03-05-2023 09:15-0500 Systolic blood pressure 122 mm[Hg] Gayathri Scally Other [employer] Other 03-02-2023 19:24-0500 Body height 160 cm Sil France DO Work Phone: [employer] 03-02-2023 19:24-0500 Body mass index (BMI) [Ratio] 36.31 kg/m2 Sil France DO Work Phone: [employer] 03-02-2023 19:24-0500 Body temperature 98.29 [degF] Sil France DO Work Phone: [employer] 03-02-2023 19:24-0500 Body weight 92.99 kg Sil Farnce DO Work Phone: [employer] 03-02-2023 19:24-0500 Diastolic blood pressure 98 mm[Hg] Sil France DO Work Phone: [employer] 03-02-2023 19:24-0500 Heart rate 82 /min Sil France DO Work Phone: [employer] 03-02-2023 19:24-0500 Respiratory rate 18 /min Sil France DO Work Phone: [employer] 03-02-2023 19:24-0500 SaO2% (BldA) [Mass fraction] 98 % Sil France DO Work Phone: [employer] 03-02-2023 19:24-0500 Systolic blood pressure 139 mm[Hg] Sil France DO Work Phone: [employer] 02-05-2023 09:20-0500 Body height 160.02 cm Jan Garg Other [employer] Other 02-05-2023 09:20-0500 Body mass index (BMI) [Ratio] 36.66 kg/m2 Jan Covingtonner Other [employer] Other 02-05-2023 09:20-0500 Body weight 93.9 kg Jan Garg Other [employer] Other 01-15-2023 09:45-0500 Body height 160.02 cm Gayathri Scally Other [employer] Other 01-15-2023 09:45-0500 Body mass index (BMI) [Ratio] 36.68 kg/m2 Gayathri Scally Other [employer] Other 01-15-2023 09:45-0500 Body weight 93.94 kg Gayathri Scally Other [employer] Other 01-15-2023 09:45-0500 Diastolic blood pressure 83 mm[Hg] Gayathri Scally Other [employer] Other 01-15-2023 09:45-0500 Respiratory rate 18 /min Gayathrimarino Barahonaly Other [employer] Other 01-15-2023 09:45-0500 SaO2% (BldA) [Mass fraction] 99 % Gayathrimarino Barahonaly Other [employer] Other 01-15-2023 09:45-0500 Systolic blood pressure 119 mm[Hg] Gayathri Scally Other [employer] Other 01-07-2023 10:00-0500 Body height 160.02 cm Jan Garg Other [employer] Other 01-07-2023 10:00-0500 Body mass index (BMI) [Ratio] 36.13 kg/m2 Jan Britany Other [employer] Other 01-07-2023 10:00-0500 Body weight 92.53 kg Jan Garg Other [employer] Other 01-07-2023 10:00-0500 Diastolic blood pressure 74 mm[Hg] Jan Scovanner Other [employer] Other 01-07-2023 10:00-0500 Systolic blood pressure 118 mm[Hg] Jan Scovanner Other [employer] Other 08-28-2022 09:00-0400 Body height 160.02 cm Tamar Fitt Other [employer] Other 08-28-2022 09:00-0400 Body mass index (BMI) [Ratio] 35.8 kg/m2 Tamar Fitt Other [employer] Other 08-28-2022 09:00-0400 Body weight 91.67 kg Tamar Fitt Other [employer] Other 07-29-2022 10:15-0400 Body height 160.02 cm Gayathri Scally Other [employer] Other 07-29-2022 10:15-0400 Body mass index (BMI) [Ratio] 35.18 kg/m2 Gayathri Scally Other [employer] Other 07-29-2022 10:15-0400 Body weight 90.08 kg Gayathri Scally Other [employer] Other 07-29-2022 10:15-0400 Diastolic blood pressure 84 mm[Hg] Gayathri Scally Other [employer] Other 07-29-2022 10:15-0400 Respiratory rate 18 /min Gayathri Scally Other [employer] Other 07-29-2022 10:15-0400 SaO2% (BldA) [Mass fraction] 99 % Gayathri Scally Other [employer] Other 07-29-2022 10:15-0400 Systolic blood pressure 127 mm[Hg] Gayathri Scally Other [employer] Other 03-21-2023 11:15-0400 Body height 160.02 cm Gayathri Scally Other [employer] Other 05-20-2022 11:15-0400 Body mass index (BMI) [Ratio] 34.52 kg/m2 Gayathri Scally Other [employer] Other 05-20-2022 11:15-0400 Body weight 88.41 kg Gayathri Scally Other [employer] Other 05-20-2022 11:15-0400 Diastolic blood pressure 82 mm[Hg] Gayathri Scally Other [employer] Other 05-20-2022 11:15-0400 Respiratory rate 18 /min Gayathri Scally Other [employer] Other 05-20-2022 11:15-0400 SaO2% (BldA) [Mass fraction] 97 % Gayathri Scally Other [employer] Other 05-20-2022 11:15-0400 Systolic blood pressure 121 mm[Hg] Gayathri Scally Other [employer] Other 04-08-2022 11:15-0500 Body height 160.02 cm Gayathri Scally Other [employer] Other 04-08-2022 11:15-0500 Body mass index (BMI) [Ratio] 34.49 kg/m2 Gayathri Scally Other [employer] Other 04-08-2022 11:15-0500 Body weight 88.32 kg Gayathri Scally Other [employer] Other 04-08-2022 11:15-0500 Diastolic blood pressure 77 mm[Hg] Gayathri Scally Other [employer] Other 04-08-2022 11:15-0500 Respiratory rate 18 /min Gayathri Scally Other [employer] Other 04-08-2022 11:15-0500 SaO2% (BldA) [Mass fraction] 98 % Gayathri Scally Other [employer] Other 04-08-2022 11:15-0500 Systolic blood pressure 110 mm[Hg] Gayathri Scally Other [employer] Other 04-08-2022 10:15-0500 Body height 160.02 cm Tamar Fitt Other [employer] Other 04-08-2022 10:15-0500 Body mass index (BMI) [Ratio] 34.49 kg/m2 Tamar Fitt Other [employer] Other 04-08-2022 10:15-0500 Body weight 88.32 kg Tamar Fitt Other [employer] Other 02-26-2022 10:00-0500 Body height 160.02 cm Tamar Fitt Other [employer] Other 02-25-2022 11:45-0500 Body height 160.02 cm Gayathri Scally Other [employer] Other 02-25-2022 11:45-0500 Body mass index (BMI) [Ratio] 36.63 kg/m2 Gayathri Scally Other [employer] Other 02-25-2022 11:45-0500 Body weight 93.8 kg Gayathri Scally Other [employer] Other 02-25-2022 11:45-0500 Diastolic blood pressure 78 mm[Hg] Gayathri Scally Other [employer] Other 02-25-2022 11:45-0500 Respiratory rate 18 /min Gayathri Scally Other [employer] Other 02-25-2022 11:45-0500 SaO2% (BldA) [Mass fraction] 97 % Gayathri Scally Other [employer] Other 02-25-2022 11:45-0500 Systolic blood pressure 109 mm[Hg] Gayathir Scally Other [employer] Other 01-14-2022 11:45-0500 Body height 160.02 cm Gayathri Scally Other [employer] Other 01-14-2022 11:45-0500 Body mass index (BMI) [Ratio] 39.37 kg/m2 Gayathri Scally Other [employer] Other 01-14-2022 11:45-0500 Body weight 100.84 kg Gayathri Scally Other [employer] Other 01-14-2022 11:45-0500 Diastolic blood pressure 88 mm[Hg] Gayathri Scally Other [employer] Other 01-14-2022 11:45-0500 Respiratory rate 18 /min Gayathri Scally Other [employer] Other 01-14-2022 11:45-0500 SaO2% (BldA) [Mass fraction] 97 % Gayathri Scally Other [employer] Other 01-14-2022 11:45-0500 Systolic blood pressure 124 mm[Hg] Gayathri Scally Other [employer] Other 12-04-2021 12:00-0400 Body height 160.02 cm Gayathri Scally Other [employer] Other 12-04-2021 12:00-0400 Body mass index (BMI) [Ratio] 39.73 kg/m2 Gayathri Scally Other [employer] Other 12-04-2021 12:00-0400 Body weight 101.74 kg Gayathri Scally Other [employer] Other 12-04-2021 12:00-0400 Diastolic blood pressure 74 mm[Hg] Gayathri Scally Other [employer] Other 12-04-2021 12:00-0400 Respiratory rate 18 /min Gayathri Scally Other [employer] Other 12-04-2021 12:00-0400 SaO2% (BldA) [Mass fraction] 95 % Gayathri Scally Other [employer] Other 12-04-2021 12:00-0400 Systolic blood pressure 110 mm[Hg] Gayathri Scally Other [employer] Other 10-29-2021 11:30-0400 Body height 160.02 cm Yo Blank Other [employer] Other 10-29-2021 11:30-0400 Body mass index (BMI) [Ratio] 38.61 kg/m2 Yo Blank Other [employer] Other 10-29-2021 11:30-0400 Body weight 98.88 kg Yo Blank Other [employer] Other 10-29-2021 11:30-0400 Diastolic blood pressure 74 mm[Hg] Yo Blank Other [employer] Other 10-29-2021 11:30-0400 Systolic blood pressure 111 mm[Hg] Yo Blank Other [employer] Other 10-22-2021 13:26-0400 Body temperature 97.2 [degF] Shawna Rumschlag DO Work Phone: [employer] 10-22-2021 13:26-0400 Diastolic blood pressure 71 mm[Hg] Shawna Rumschlag DO Work Phone: [employer] 10-22-2021 13:26-0400 Heart rate 85 /min Shawna Rumschlag DO Work Phone: [employer] 10-22-2021 13:26-0400 Respiratory rate 16 /min Shawna Rumschlag DO Work Phone: [employer] 10-22-2021 13:26-0400 SaO2% (BldA) [Mass fraction] 94 % Shawna Rumschlag DO Work Phone: [employer] 10-22-2021 13:26-0400 Systolic blood pressure 131 mm[Hg] Shawna Rumschlag DO Work Phone: [facility] 10-11-2021 23:48-0400 Body height 160 cm Daniel Adkins MD Work Phone: [facility] 10-11-2021 23:48-0400 Body mass index (BMI) [Ratio] 36.67 kg/m2 Daniel Adkins MD Work Phone: [facility] 10-11-2021 23:48-0400 Body temperature 98.6 [degF] Daniel Adkins MD Work Phone: [facility] 10-11-2021 23:48-0400 Body weight 93.89 kg Daniel Adkins MD Work Phone: [facility] 10-11-2021 23:48-0400 Diastolic blood pressure 88 mm[Hg] Daniel Adkins MD Work Phone: [facility] [email or web address] 10-11-2021 23:48-0400 Heart rate 97 /min Daniel Adkins MD Work Phone: [facility] 10-11-2021 23:48-0400 Respiratory rate 16 /min Daniel Adkins MD Work Phone: [facility] 10-11-2021 23:48-0400 SaO2% (BldA) [Mass fraction] 96 % Daniel Adkins MD Work Phone: [facility] 10-11-2021 23:48-0400 Systolic blood pressure 134 mm[Hg] Daniel Adkins MD Work Phone: [facility] Encounters Encounter Date Encounter Type Care Provider Facility Start: 04-20-2023 End: 04-20-2023 Emergency department patient visit [facility] Start: 04-20-2023 End: 04-20-2023 Emergency department patient visit [facility] DO Work Phone: [facility] Comment on above: Closed head injury, initial encounter (Primary Dx); Fall due to slipping on ice or snow, initial encounter; Acute cervical myofascial strain, initial encounter Start: 04-16-2023 ambulatory Myrtle Cerna Facility: [facility] Start: 04-07-2023 End: 04-08-2023 ambulatory [facility]AWNA RUMSCHLAG [facility] Start: 03-31-2023 Emery Clay RN [facility] Start: 03-27-2023 End: 03-28-2023 ambulatory PETE SILVER [facility] Start: 03-24-2023 End: 03-25-2023 [facility] Start: 03-19-2023 End: 03-19-2023 ambulatory GABY JUNE Not Available Start: 03-18-2023 Telephone encounter Jan Peterson [facility] Start: 03-18-2023 End: 03-18-2023 ambulatory NON STAFF [facility] [email or web address] Other Start: 03-18-2023 Non-patient / Non-visit MD Yo Blank Work Phone: [facility] Work Phone: Start: 03-17-2023 End: 03-17-2023 ambulatory Jan Garg Other [place] [employer] Other Start: 03-17-2023 Telephone encounter Jan Peterson [facility] Start: 03-16-2023 Encounter for genera l adult medical examination without abnormal findings [facility] Start: 03-16-2023 End: 03-17-2023 ambulatory [facility] Start: 03-16-2023 End: 03-16-2023 ambulatory LULY ENGLISH Not Available Start: 03-10-2023 End: 03-11-2023 ambulatory SHAWNA RUMSCHLAG [facility] Start: 03-10-2023 End: 03-10-2023 Subsequent hospital visit by physician [facility] Comment on above: Arrived Start: 03-05-2023 (FCCCWMNF/U) Weight Management f/u [facility] Start: 03-05-2023 End: 03-05-2023 ambulatory [facility] [email or web address] Other Start: 03-05-2023 Registered Recurring MD Monserrat Blank Work Phone: [facility] Work Phone: Start: 03-02-2023 End: 03-02-2023 Emergency department patient visit [facility] Start: 03-02-2023 End: 03-02-2023 Emergency department patient visit Sil France DO Work Phone: [facility] Comment on above: Constipation, unspec ified constipation type (Primary Dx) Start: 02-26-2023 End: 02-26-2023 ambulatory Jan Garg Other [employer] Other Start: 02-26-2023 Telephone encounter Jan Peterson [facility] Start: 02-20-2023 Telephone encounter Argenis Storm RN [facility] Comment on above: Medication, DME Start: 02-18-2023 End: 02-18-2023 ambulatory Jan Garg Other [employer] Other Start: 02-18-2023 Telephone encounter Jan Peterson [facility] Start: 02-10-2023 Telephone encounter Margaux Olea CST [facility] Start: 02-05-2023 End: 02-05-2023 ambulatory Jan Garg Other [employer] Other Start: 02-05-2023 Office outpatient visit 15 minutes Jan Garg [facility] Start: 01-15-2023 (FCCCWMNF/U) [facility] Start: 01-15-2023 End: 01-15-2023 ambulatory Gayathrimarino Adams Other [employer] Other Start: 01-07-2023 End: 01-07-2023 ambulatory Jan Garg Other [employer] Other Start: 01-07-2023 Office outpatient visit 15 minutes Jan Garg [facility] Start: 09-25-2022 End: 01-16-2023 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[employer] LEAK GANG YUE GRANADO [facility] Start: 09-25-2022 End: 01-15-2023 Recurring YUE Kerline GRANADO [facility] Start: 09-17-2022 End: 09-17-2022 ambulatory Gayathri Adams Other [employer] Other Start: 09-17-2022 Telephone encounter Gayathri [facility] Start: 08-28-2022 ([facility] RD FU) [facility] 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 Tamar Sosa [facility] Start: 08-28-2022 End: 08-28-2022 ambulatory Tamar Sosa Other [employer] Other Start: 07-29-2022 ([facility] Weight Management f/u Gayathri Angie [facility] Start: 07-29-2022 End: 07-29-2022 ambulatory Gayathri Brooklynly Other [employer] Other Start: 05-20-2022 ([facility]) Weight Management f/u Gayathri Brooklynly [facility] Start: 05-20-2022 End: 05-20-2022 ambulatory Gayathrimarino Barahonaly Other [employer] Other Start: 05-19-2022 End: 05-19-[address] ALICIA PRESTON . Facility:[facility] Start: 05-07-2022 End: 05-08-[address] DOCTOR ARREOLA Facility:[facility] Start: 04-09-2022 End: 04-09-2022 ambulatory Gayathri Adams Other [employer] Other Start: 04-09-2022 Telephone encounter Gayathri [place] [facility] Start: 04-08-2022 ([facility] WMNI) WMN Initial Provider Tamar Sosa [facility] Start: 04-08-2022 ([facility]) Weight Management f/u Gayathri Adams [facility] Start: 04-08-2022 End: 04-08-2022 ambulatory Tamar Fitt Other [employer] Other Start: 02-26-2022 End: 02-26-2022 ambulatory Tamar Fitt Other [employer] Other Start: 02-26-2022 IBT FOR OBESITY GROU P 2-10 30M Tamar Fitt [facility] Start: 02-25-2022 ([facility]) Weight Management f/u Gayathri Adams [facility] Start: 02-25-2022 End: 02-25-2022 ambulatory Gayathri Adams Other [employer] Other Start: 02-17-2022 End: 02-18-2022 ambulatory RORY KIDD Facility:[facility] Start: 01-29-2022 End: 01-30-2022 ambulatory JOY ARAMBULA Facility:[facility] Start: 01-14-2022 ([facility]) Weight Management f/u Gayathri Adams [facility] Start: 01-14-2022 End: 01-14-2022 ambulatory Gayathri Adams Other [employer] Other Start: 12-05-2021 End: 12-05-2021 ambulatory Gayathri Adams Other [employer] Other Start: 12-05-2021 Telephone encounter Gayathri last [facility] Start: 12-04-2021 End: 12-04-2021 ambulatory Gayathri Adams Other [employer] Other Start: 12-04-2021 Nutrition therapy Gayathri gruber [facility] Start: 10-29-2021 End: 10-29-2021 ambulatory Yo Ruizlaurence Other [employer] Other Start: 10-29-2021 Patient encounter procedure Yo Blank [facility] Start: 10-22-2021 End: 10-22-2021 Emergency department patient visit Shawna Dudley DO Work Phone: [facility] Comment on above: Acute diffuse otitis externa of left ear (Primary Dx) Start: 10-11-2021 End: 10-12-2021 Emergency department patient visit Daniel Adkins MD Work Phone: [facility] Comment on above: Pilonidal cyst (Prim romero Dx) Start: 11-21-2016 End: 11-26-2016 Ambulatory Juan Ramon Alsilvestrecynthia Facility: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 LEAK GANG Work Phone: Start: 04-20-2023 Ct head/brain w/o co ntrast material Precious Urbina [employer]AND WORKER - 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 Work Phone: Start: 05-02-2022 Microalbumin [Mass/v olume] in Urine by Test strip Patricia Clay RN Start: 05-02-2020 Adult depression scr eening assessment Argenis Storm RN Start: 08-30-2016 Cholecystectomy [facility] Start: 01-03-2013 nasal surgery YUE ALVARENGA RS Tonsillectomy YUE GRANADO Plan of Treatment Date Care Activity Detail Author Start: 03-16-2024 Adult BMI Screening Adult BMI Screen ing [facility] Start: 01-30-2024 Adult BMI Screening Adult BMI Screen ing [facility] Start: 01-30-2024 Tobacco Screening Tobacco Screening [facility] Start: 05-23-2023 Hepatitis B vaccine (3 of 3 - Hep B Twinrix 3-dose series) Hepatitis B vaccine (3 of 3 - Hep B Twinrix 3-dose series) [facility] Start: 05-05-2023 End: 05-05-[address] [facility] Comment on above: DRY NEEDLING DRY NEEDLING- jd gibson coordinates with son's appt Start: 05-05-2023 ambulatory Ambulatory [facility] Start: 05-03-2023 Urine screening for protein Urine Microalbumin [facility] Start: 04-28-2023 End: 04-28-2023 Patient encounter procedure 04/28/2023 10:45 AM EST Office Visit [facility] [address] [place] [address] Gil Alba, PA [address] [place] [address] [facility] Start: 04-21-2023 End: 04-21-[address] [facility] Physical Therapy Comment on above: DRY NEEDLING DRY NEEDLING- jd gibson coordinates with son's appt Start: 04-07-2023 End: 04-07-2023 Patient encounter procedure 04/07/2023 2:[address] [facility] Physical Therapy [address] [place] [address] Rebecca Skinner PT DRY NEEDLING [facility] Comment on above: DRY NEEDLING Start: 03-27-2023 End: 03-27-2023 Admission to same day surgery center 03/27/2023 1:27 PM EST - 03/27/2023 1:33 PM EST Surgery [facility] [address] [place] [phone] Pete Silver MD [address] [facility], [place] [id number] INJECTION BLOCK SACROILIAC JOINT [90252 (CPT )] [facility] Comment on above: INJECTION BLOCK SACR OILIAC JOINT [67721 (CPT )] Start: 03-27-2023 End: 03-27-2023 Inject si joint arthrgrphy&/anes/stero id w/monika INJECTION BLOCK SACROILIAC JOINT Disorder of sacrum 03/27/2023 1:27 PM EST [facility] Start: 03-27-2023 Subsequent hospital visit by physician 03/27/2023 1:27 PM EST Hospital Encounter [facility] [address] [place] [phone] Pete Silver MD [address] [place] [address] [facility] Start: 03-24-2023 End: 03-24-2023 Patient encounter procedure 03/24/2023 2:[address] [facility] Physical Therapy [address] [place] [phone] Rebecca Skinner, PT DRY NEEDLING [facility] Physical [facility] Comment on above: DRY NEEDLING Start: 03-19-2023 [facility] Start: 03-16-2023 End: 03-16-2023 Patient encounter procedure 03/16/2023 11:45 AM EST Appointment [facility] [address] [place] [phone] [facility] Start: 03-10-2023 End: 03-10-2023 Patient encounter procedure 03/10/2023 2:[address] [facility] [address] [place] [address] [phone] Rebecca Skinner, PT [facility] Start: 09-30-2022 Influenza vaccination Flu vaccine (# 1) [facility] Start: 10-31-2021 Influenza vaccination Flu vaccine (# 1) [facility] Start: 09-03-2021 DTaP,Tdap and Td Vaccines (1 - Tdap) DTaP,Tdap and Td Vaccines (1 - Tdap) [facility] Start: 09-03-2021 DTaP/Tdap/Td vaccine (1 - Tdap) DTaP/Tdap/Td vaccine (1 - Tdap) [facility] Start: 05-02-2021 Depression Screening Depression Scre ening [facility] Start: 2020 Lipid panel Lipids [facility] Start: 01-04-2020 Diabetic foot examination Diabetic Foot Exam [facility] Start: 09-25-2015 Diabetes screen Diabetes screen [facility] Start: 2010 Screening for malignant neoplasm of cervix [facility] Start: 2001 Screening for malignant neoplasm of cervix Pap smear [facility] Start: 09-25-1999 DTaP/Tdap/Td vaccine (1 - Tdap) DTaP/Tdap/Td vaccine (1 - Tdap) [facility] Start: 1998 Adult BMI Follow Up Plan Adult BMI Follow Up Plan [facility] Start: 1998 Hepatitis C screening Hepatitis C sc reen [facility] Start: 09-25-1995 HIV screening HIV screen [facility] Start: 1992 Depression Screen Depression Screen [facility] Start: 1981 Varicella vaccine (1 of 2 - 2-dose childhood series) Varicella vaccine (1 of 2 - 2-dose childhood series) [facility] Start: 03-27-1981 COVID-19 Vaccine (#1) COVID-19 Vacci ne (#1) [facility] Start: 1980 Glaucoma screening Diabetic Op hthalmology Exam [facility] Start: 1980 Hepatitis B vaccine (1 of 3 - 3-dose series) Hepatitis B vaccine (1 of 3 - 3-dose series) [facility] Inject si joint arthrgrphy&/anes/stero id w/monika INJECTION BLOCK SACROILIAC JOINT Disorder of sacrum [facility] Immunizations Immunization Date Immunization Notes Care Provider Saundra cony 12-19-2018 influenza, injectabl e, quadrivalent, preservative free Argenis Storm RN [facility] 12-02-2017 influenza, injectabl e, quadrivalent, preservative free Argenis Storm RN [facility] 12-02-2017 pneumococcal conjuga te vaccine, 13 valent Argenis Storm RN [facility] 10-10-2016 influenza virus vacc ine, unspecified formulation Argenis Storm RN [facility] 12-19-2013 influenza virus vacc ine, live, attenuated, for intranasal use Argenis Storm RN [facility] 12-03-2012 influenza virus vacc ine, whole virus Argenis Storm RN [facility] 12-29-2011 influenza virus vacc ine, whole virus Argenis Storm RN [facility] 12-23-2010 influenza virus vacc ine, whole virus Argenis Storm RN [facility] 12-18-2008 influenza virus vacc ine, whole virus Argenis Storm RN [facility] Payers Date Payer Category Payer Self-pay [id number] 2002 Medicaid [employer] [place] [employer] [id number] 2002-Present [phone] [place] [phone] [id number] 1980 Unknown [id number] 2.840.1.602758.3.579.2.593 1980 Unknown [id number] 2..840.1.269007.3.579.2.593 1980 Unknown [id number] 2..840.1.216880.3.579.2.593 1980 Unknown [id number] 2..840.1.570225.3.579.2.593 1980 Unknown [id number] 2.16.840.1.658608.3.579.2.727 1980 Unknown [id number] 2.16.840.1.609375.3.579.2.1259 1980 Unknown [id number] 2.16.840.1.127169.3.579.2.1259 1980 Unknown [id number] 2.16840.1.786557.3.579.2.1286 1980 Unknown [id number] 2.16840.1.059500.3.579.2.128 1980 Unknown [id number] 2.840.1.164552.3.579.2.1285 1980 Unknown [id number] 2.840.1.993352.3.579.2.1285 1980 Unknown [id number] 2.840.1.015582.3.579.2.173 1980 Unknown [id number] 2.840.1.541271.3.579.2.173 1980 Unknown [id number] 2.840.1.419191.3.579.2.173 1980 Unknown [id number] 2.840.1.372619.3.579.2.173 1980 Unknown [id number] 2.840.1.959056.3.579.2.173 1980 Unknown [id number] 2.840.1.301938.3.579.2.173 1959 Medicaid [id number] Unknown [id number] 2.16840.1.066761.3.579.2.531 Unknown [id number] 2.16840.1.086584.3.579.2.531 Unknown [id number] 2.840.1.941497.3.579.2.531 Social History Date Type Detail Facility Start: 09-02-2017 End: 01-28-2022 Tobacco smoking status NHIS Never smoked tobacco [facility] Start: 09-02-2017 End: 01-28-2022 Tobacco use and exposure Smokeless tobacco non-user [facility] Phone: Start: 10-11-2021 End: 03-27-2023 Alcohol intake Current non-drinker of alcohol (finding) [facility] Phone: Start: 1980 Sex Assigned At Not on file [employer] Phone: Start: 10-01-2021 End: 10-22-2021 Exposure to SARS-CoV-2 (event) Not sure [facility] Phone: Start: 03-13-2020 End: 10-11-2021 Sex Assigned At [facility] Tobacco smoking status Never [facility] Start: 03-13-2020 End: 10-11-2021 History of Social function [facility] Start: 1980 Sex Assigned At Female F [facility] Medical Equipment Procedure Code Equipment Code Equipment Origin al Text Equipment Identifier Dates [place] Sut 5.5mm 2 Ft Crkscr Fbrwr Shldr 3 Pk 14.7mm Strl Ea=Bill-Only Rpl [id number] Start: 05-15-2022 Use to test BLOO D SUGAR TWICE DAILY [id number] Start: 05-28-2020 Use to test BLOO D SUGAR TWICE DAILY, Diagnosis: E11.9 [id number] Start: 03-08-2020 Clinical Notes 10-22-2021 to 04-20-2023 Discharge InstructionsAttachmentsTelephone Encounter - Patricia Clay RN - 03/31/2023 9:30 AM ESTTelephone Encounter - UMESH Love - 03/31/2023 9:30 AM EST Note Date & Type Note Facility 04-20-2023 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 Patient calls today and states she has discussed obtaining Tramadol prescription with both Mohsen and Kimberlyn. She states her mother was prescribed Cymbalta and it worked for her mother. Patient had left SI injection 03/27/2023 which she states the relief lasted 3 hours. Patient wants to know if Cymbalta is something that can be prescribed for her. She states her mother has some Cymbalta that she can try . Patient will be educated not to take medications that are prescribed to someone other than her. Is she still taking prozac? What dosage? Any other antidepressants? Call placed to patient to confirm whether or not she is taking Prozac or other antidepressants. Patient states she is taking 40 mg Prozac daily. That is the only antidepressant that she takes. She is prescribed Latuda and Lamictal to treat Bipolar. Can try cymbalta 30mg once daily Call placed to patient to inform her of provider's response. Patient is also educated not to take medications that are prescribed to someone other than her. Patient voices that she is aware that she should not be taking medications prescribed to someone other than her. [employer] reiterated this to patient. Patient's pharmacy was confirmed with her. Order pended for review and signature. documented in this encounter [facility] 03-31-2023 Telephone encount er Note Patient calls today and states she has discussed obtaining Tramadol prescription with both Mohsen and Kimberlyn. She states her mother was prescribed Cymbalta and it worked for her mother. Patient had left SI injection 03/27/2023 which she states the relief lasted 3 hours. Patient wants to know if Cymbalta is something that can be prescribed for her. She states her mother has some Cymbalta that she can try . Patient will be educated not to take medications that are prescribed to someone other than her. [facility] 03-31-2023 Telephone encount er Note Is she still taking prozac? What dosage? Any other antidepressants? [facility] 03-31-2023 Telephone encount er Note Call placed to patient to confirm whether or not she is taking Prozac or other antidepressants. Patient states she is taking 40 mg Prozac daily. That is the only antidepressant that she takes. She is prescribed Latuda and Lamictal to treat Bipolar. [facility] 03-31-2023 Telephone encount er Note Can try cymbalta 30mg once daily [facility] 03-31-2023 Telephone encount er Note Call placed to patient to inform her of provider's response. Patient is also educated not to take medications that are prescribed to someone other than her. Patient voices that she is aware that she should not be taking medications prescribed to someone other than her. [employer] reiterated this to patient. Patient's pharmacy was confirmed with her. Order pended for review and signature. [facility] 03-05-2023 Evaluation note Encounter Date Diagnosis Assessment [...] was counseling done by myself, Rhina ROBERTSON. [facility] 01-01-2024 Hospital Discharge instructions* Discharge Instructions* Sil France DO - 03/02/2023 7:49 PM EST Please follow-up with your GI doctor, trial enema at home, return to the ER for worsening abdominalpain, inability to pass gas, or nausea, vomiting * Attachments The following attachments cannot be sent through Care Everywhere. * Constipation (Malagasy) [facility] Miscellaneous Notes* Telephone Encounter - Argenis [...] when she was under his care in [place]. She is currently taking Meloxicam that helps [...] She states whatever . [facility] Tele[facility] encounter Note* Telephone Encounter - Argenis [...] when she was under his care in [place]. She is currently taking Meloxicam that helps [...] medical records to another pain management. Patient hallie has been a patient of for many years and is happy with the injections and continues toask for the Ultram. Advised patient that we would route the requests to Mohsen and add Dr. Silver on the note. PVU. [employer] [id number] Telephone encounter Note* Telephone Encounter - Pete Silver MD - 02/20/2023 10:04 AM EST Discussed with nurse, I agree with Fartun's treatment plan going forward. [employer] [id number] Telephone encounter Note* Telephone Encounter - UMESH Love - 02/20/2023 10:04 AM EST No Rx for tramadol. I have never written prescription for bra so I would not know how to proceed with anything like that. [facility]12-22-2023 Telephone encounter Note* Telephone Encounter - Argenis Storm RN - 02/20/2023 10:04 AM EST Patient aware of response. She states whatever . [facility]12-20-2023 Evaluation note* Encounter Date Diagnosis Assessment Notes Treatment Notes Treatment Clinical Notes Jan, Constipation, unspecified constipation type (ICD-10 - K59.00) Jan, Constipation (ICD-10 - K59.00) [facility] 12-12-2023 Miscellaneous Notes* Telephone Encounter - [...] and has f[facility]u appt [facility] Tele[facility] encounter Note* Telephone Encounter - [...] pain is now related to sacroiliac joint. [facility]12-12-2023 Telephone encounter Note* Telephone Encounter - [...] sufficient reason to deny the current request. [facility]12-12-2023 Telephone encounter Note* Telephone Encounter - Alfredito William - 02/10/2023 8:18 AM EST GOT APPROVAL [facility]12-12-2023 Telephone encounter Note* Telephone Encounter - Maty Fulton RN - 02/10/2023 8:18 AM EST Pt is scheduled 03/27 for procedure and has f/u appt [facility]12-07-2023 Evaluation note* Encounter Date Diagnosis Assessment Notes [...] R10.9) Jan, Rectal bleed (ICD-10 - K62.5) [facility] 11-16-2023 Evaluation note* Encounter Date Diagnosis [...] was counseling done by myself, Rhina ROBERTSON. [facility] 11-08-2023 Evaluation note* Encounter Date Diagnosis [...] HAVE PATIENT START DOCUSATE 3 CAPSULES DAILY. [facility] Other 06-29-2023 Evaluation note* Encounter Date Diagnosis Assessment Notes Treatment Notes Treatment Clinical Notes Jul, Obesity (ICD-10 - E66.9) Jul, BMI 34.0-34.9,adult (ICD-10 - Z68.34) Jul, Other Summary of Visi t: (A) discussed continuing to work on small goals until stress decreases and she has the energy to increase goals (B) discussed healhtier choices at [employer]- food blog reviewed (C) reviewed food storage tips for keeping produce fresh longer Patient set the following goals: - NEW: continue to choose sugar free beverages- not reviewed [facility] Other 05-30-2023 Evaluation note* Encounter Date Diagnosis [...] was counseling done by myself, Rhina ROBERTSON. [facility] 03-21-2023 Evaluation note* Encounter Date Diagnosis [...] was counseling done by myself, Rhina ROBERTSON. [facility] 02-07-2023 Evaluation note* Encounter Date Diagnosis [...] set the following goals: not reviewed today [facility] 02-07-2023 Evaluation note* Encounter Date Diagnosis [...] was counseling done by myself, Rhina ROBERTSON. [facility] 12-28-2022 Evaluation note* Encounter Date Diagnosis [...] patient set personal goal using given handout. [facility] Other 12-27-2022 Evaluation note* Encounter Date Diagnosis [...] was counseling done by myself, Rhina ROBERTSON. [facility] Other 12-01-2022 NotePROCEDURE: XR ANKLE LT MIN [...] Electronically authenticated by: ONEL CLARK Date: 2022-01-29 22:30[facility]12-01-2022 NotePROCEDURE: XR ANKLE LT MIN 3 [...] Electronically authenticated by: ONEL CLARK Date: 2022-01-29 22:30[facility]11-15-2022 Evaluation note* Encounter Date Diagnosis Assessment [...] was counseling done by myself, Rhina ROBERTSON. [facility] 10-05-2022 Evaluation note* Encounter Date Diagnosis [...] was counseling done by myself, Rhina ROBERTSON. [facility] Other 08-30-2022 Evaluation note* Encounter Date Diagnosis Assessment Notes Treatment Notes Treatment Clinical Notes Sep, Fatty liver (ICD-10 - K76.0) ENCOURAGED WEIGHT LOSS Sep, Obesity (BMI 30-39.9) (ICD-10 - E66.9) [facility] 08-23-2022 Hospital Discharge instructions* Discharge Instructions* Stanley Almonte PA-C - 10/22/2021 2:03 PM EDT Follow-up with primary care doctor 7 to 10 days for reevaluation. Take Motrin 800 mg as directed with food. Start eardrops left ear as directed. Promptly return to emergency department for new, changing or worsening of symptoms or other concerns. documented in this encounter[facility]ili Phone: evaluation + Plan note No data available for this section [facility] Diagnosis Pilonidal cyst- Primary Pilonidal cyst without mention of abscess documented in this encounter [facility] Phone: evaluation note* Diagnosis Acute diffuse otitis externa of left ear- Primary documented in this encounter [facility] Phone: evaluation noteNo InformationNort [employer] Other Evaluation note* Diagnosis Constipation, unspecified constipation type- Primary documented in this encounter [facility] noteNo assessment information available [facility] Work Phone: Evaluation note* Diagnosis Closed head injury, initial encounter- Primary Fall due to slipping on ice or snow, initial encounter Acute cervical myofascial strain, initial encounter documented in this encounter [facility] N[facility]ative - Reported* Type Description Date Medical History PTSD Medical History DIVERTICULITOUS Surgical History 2 BACK INJECTIONS 2014 Surgical History LEFT ANKLE 2001 Surgical History CHOLECYSTECTOMY Hospitalization History SEE ABOVE [facility] Other [facility] general Narrative - Reported* Type Description Date Medical History PTSD Medical History DIVERTICULITOUS Medical History bipolar Medical History ADHD Surgical History 2 BACK INJECTIONS 2014 Surgical History LEFT ANKLE 2001 Surgical History CHOLECYSTECTOMY Surgical History nasal surgery Hospitalization History SEE ABOVE [facility] Other [facility] general Narrative - Reported* Type Description Date Medical History PTSD Medical History DIVERTICULITOUS Medical History bipolar Medical History ADHD Surgical History 2 BACK INJECTIONS 2014 Surgical History LEFT ANKLE 2002 Surgical History CHOLECYSTECTOMY Surgical History nasal surgery Surgical History right Rotator surgery 05-15-22 Hospitalization History SEE ABOVE [facility] Other [facility] general Narrative - Reported* Type Description Date Medical History PTSD Medical History DIVERTICULITOUS Medical History bipolar Medical History ADHD Medical History rotator cuff tear Surgical History 2 BACK INJECTIONS 2014 Surgical History LEFT ANKLE 2001 Surgical History CHOLECYSTECTOMY Surgical History nasal surgery Surgical History right Rotator surgery 05-15-22 Hospitalization History SEE ABOVE [facility] Other [facility] general Narrative - Reported* Type Description Date Medical History PTSD Medical History DIVERTICULITOUS Medical History bipolar Medical History ADHD Medical History rotator cuff tear Surgical History 2 BACK INJECTIONS 2014 Surgical History LEFT ANKLE 2001 Surgical History CHOLECYSTECTOMY Surgical History nasal surgery Surgical History right Rotator surgery 05-15-22 Surgical History Neck injections/root burnt 12/31 Hospitalization History SEE ABOVE [facility] Other [facility] general Narrative - Reported* Type Description Date Medical History PTSD Medical History DIVERTICULITOUS Medical History bipolar Medical History ADHD Medical History rotator cuff tear Surgical History 2 BACK INJECTIONS 2014 Surgical History LEFT ANKLE 2001 Surgical History CHOLECYSTECTOMY Surgical History nasal surgery Surgical History right Rotator surgery 05-15-22 Surgical History Neck injections/root burnt 12/31 Hospitalization History SEE ABOVE Hospitalization History [facility] 03-02-2023 [facility] Other Hospital Discharge instructions* Attachments The following attachments cannot be sent through Care Everywhere. * Pilonidal Abscess (Malagasy) documented in this encounter[facility]ON [facility] Work Phone: Hospital Discharge instructions No data available for this section [facility] HospitalInstructionsNot on filedocumented in this encounter [facility]ructionsNot on filedocumented in this encounter [facility] SystemInstructionsNot on filedocumented in this encounter [facility] No data available for this section [facility] Summary Purpose Family History No Family History Records Found Relationship Condition Age at Onset Recorded Date/T baisa father Diabetes mellitus Unknown Heart disease Unknown [...] First Name Yo Referring Provider Last Name Rosamaria Referring Provider Specialty Gastroenter ology Referred Organization [...] section and content) DATE CREATED AUTHOR 08/26/2017 [facility] DATE CREATED AUTHOR AUTHOR'S ORGANIZ ATION 05/30/2022 [facility] [place] [facility] DATE CREATED AUTHOR AUTHOR'S ORGANIZ ATION 01/18/[address] [facility] DATE CREATED AUTHOR AUTHOR'S ORGANIZ ATION 03/20/2023 [facility] DATE CREATED AUTHOR AUTHOR'S ORGANIZ ATION 03/29/2023 [facility] DATE CREATED AUTHOR AUTHOR'S ORGANIZ ATION 04/18/2023 [facility] DATE CREATED AUTHOR AUTHOR'S ORGANIZ ATION 04/21/2023 [facility] pital Reason for Visit (unrecogniz ed section [...] Reason Onset Date Comments Medication, DME 02/20/2023 Reason Comments Fall Patient slipped on i ce last night and hit head, states sore everywhere, Denies LOC or vomiting. States she is getting a migraine but states she did not take any of her medications because she wanted to be checked first. Ordered Prescriptions (unrec ognized section and content) Prescription Sig Dispensed Refills Start Date End Da te clindamycin (CLEOCIN) 150 MG capsule Take 3 capsules by mouth in the morning and 3 capsules at noon and 3 capsules before bedtime. Do all this for 10 days. 90 capsule 0 10/12/2021 10/22/2021 Prescription Sig Dispensed Refills Start Date End Da te bfddvzew-jzrtnxzao-cgtnng ortisone (CORTISPORIN) 3.5-[address]14-[address] 4 drops into the [...] Infection 0145 (Given - Provid er: Leroy Roca RN) ondansetron (ZOFRAN-ODT) disintegrating tablet 4 mg (COMPLETED) 4 mg, Oral, ONCE, 1 dose, On 10/12/21 at 0130 0133 (Given - Provid er: Leroy Roca RN) Scheduled Medication Order 04/18/2023 04/19/2023 04/20/2023 ketorolac (TORADOL) injection 30 mg (COMPLETED) 30 mg, IntraMUSCular, ONCE, 1 dose, On Thu04/20/23 at 1400, Do not administer for more than 5 days. 1356 (Given - Provid er: Ericka Weller RN) orphenadrine (NORFLEX) injection 60 mg (COMPLETED) 60 mg, IntraMUSCular, ONCE, 1 dose, On Thu04/20/23 at 1400 1357 (Given - Provid er: Ericka Weller RN) Care Teams (unrecognized sec tion and content) [employer] Relationship Specialty Start Date End Date Shawna Dudley DO [address] [place] [address] PCP - General Family Medicine 10/12/21 [employer] Relationship Specialty Start Date End Date Shawna Dudley DO [address] [place] [address] PCP - General Family Medicine 10/12/21 [employer] Relationship Specialty Start Date End Date Shawna Dudley DO [address] [place] [id number] PCP - General Family Medicine 10/12/21 [employer] Relationship Specialty Start Date End Date Shawna Dudley DO [address] [place] [address] PCP - General Family Medicine 05/02/22 [employer] Relationship Specialty Start Date End Date Shawna Dudley DO [address] [place] [address] PCP - General Family Medicine 10/12/21 [employer] Relationship Specialty Start Date End Date Shawna Dudley DO [address] [place] [address] PCP - General Family Medicine 05/02/22 Team [...] Care Provider Active Start: March 18, 2023 [employer] Relationship Specialty Start Date End Date Shawna Dudley DO [address] [place] [address] PCP - General Family Medicine 05/02/22 [employer] Relationship Specialty Start Date End Date Shawna Dudley [address] [place] [address] PCP - General Family Medicine 10/12/21 Goals (unrecognized section and content) Goals may [...] BE BASED ON THE PRIMARY CLINICAL RECORDS. [employer] provides no warranty or guarantee of the accuracy or completeness of information in this document.
[2023-04-22 09:54] LABS: Creatinine Urine Random 110.79 mg/dL (20.00-300.00); Microalbum Creatinine Ratio Ur 15.3 mg/g (0.0-29.9); Microalbumin Urine Random 1.7 mg/dL (<=30.0)
[2023-04-22 10:23] LABS: Albumin Level 3.6 g/dL (3.4-5.0); Anion Gap 12.9; BUN Creatinine Ratio 25.6; Calcium 9.2 mg/dL (8.5-10.1); Carbon Dioxide 28.4 mmol/L (21.0-32.0); Chloride 107 mmol/L (98-107); Chol HDL Ratio 2.2; Cholesterol 125 mg/dL (<=200); Estimated GFR (African America >60 (>=60); Estimated GFR (Non-African Ame >60 (>=60); Glucose 85 mg/dL (74-106); HDL Cholesterol 57 mg/dL (40-60); Phosphorus 3.6 mg/dL (2.6-4.7); Potassium 4.3 mmol/L (3.5-5.1); Sodium 144 mmol/L (136-145); Triglycerides 60 mg/dL (<=150)
== END 2023-04-22 09:17 | disposition home or self-care (01) ==
LOC: LAB 09:19
PROVIDERS: PCP Nurse Practitioner Primary Care; Visit Provider Internal Medicine
DX: E11.65 Type 2 diabetes mellitus with hyperglycemia (principal); E55.9 Vitamin D deficiency, unspecified; E78.5 Hyperlipidemia, unspecified
CPT/HCPCS: 36415; 80061; 80069; 82043; 82306; 82570

== ENCOUNTER 2023-05-05 07:38 | Outpatient (RCR) | payer OTHER, SELFPAY ==
[2023-05-05 12:18] LABS: Basophils Percent Auto 0.3 % (0.2-2.0); Eosinophils Absolute Auto 0.1 10^3/uL (0.0-0.7); Eosinophils Percent Auto 0.9 % (0.9-7.0); Hematocrit 45.6 % (36.0-48.0); Hemoglobin 14.7 g/dL (12.0-16.0); Immature Granulocytes Abs Auto 0.03 10^3/uL (0.00-0.03); Immature Granulocytes Pct Auto 0.3 % (0.0-0.5); Lymphocytes Absolute Auto 2.3 10^3/uL (1.2-3.8); Mean Corpuscular HGB Conc 32.2 g/dL (29.9-35.2); Mean Corpuscular Hemoglobin 28.8 pg (26.7-34.0); Mean Corpuscular Volume 89.2 fL (81.0-99.0); Mean Platelet Volume 10.8 fL (9.5-13.5); Monocytes Absolute Auto 0.6 10^3/uL (0.3-0.8); Monocytes Percent Auto 6.4 % (1.7-12.0); Neutrophils Absolute Auto 5.9 10^3/uL (1.4-6.5); Neutrophils Percent Auto 66.1 % (43.0-75.0); Platelet Count 297 10^3/uL (150-450); Red Blood Count 5.11 10^6/uL (4.20-5.40); Red Cell Distribution Width 13.1 % (11.0-15.0); White Blood Count 8.9 10^3/uL (4.0-11.0)
[2023-05-05 12:30] LABS: Anion Gap 10.4; BUN Creatinine Ratio 27.9; Calcium 9.3 mg/dL (8.5-10.1); Chloride 104 mmol/L (98-107); Estimated GFR (African America >60 (>=60); Estimated GFR (Non-African Ame >60 (>=60); Glucose 76 mg/dL (74-106); Potassium 4.4 mmol/L (3.5-5.1); Sodium 140 mmol/L (136-145)
[2023-05-05 13:08] LABS: Percent Iron Saturation 25.3 %
== END 2023-05-31 23:59 | disposition home or self-care (01) ==
LOC: INF 07:38
PROVIDERS: PCP Nurse Practitioner Primary Care; Visit Provider Internal Medicine Hematology & Oncology
DX: D50.9 Iron deficiency anemia, unspecified (principal); K90.9 Intestinal malabsorption, unspecified; Z15.09 Genetic susceptibility to other malignant neoplasm; D64.9 Anemia, unspecified; E11.9 Type 2 diabetes mellitus without complications; Z79.85 Long-term (current) use of injectable non-insulin antidiabetic drugs; K21.9 Gastro-esophageal reflux disease without esophagitis; M19.90 Unspecified osteoarthritis, unspecified site; J45.909 Unspecified asthma, uncomplicated; Z90.49 Acquired absence of other specified parts of digestive tract; Z85.41 Personal history of malignant neoplasm of cervix uteri
CPT/HCPCS: 36415; 80048; 82728; 83540; 83550; 85025; G0463

== ENCOUNTER 2023-05-25 21:24 | Outpatient (REF) | payer OTHER, SELFPAY ==
--- OUTSIDE RECORDS SUMMARY | 2023-05-25 21:32 | XMS_ITS | CCD ---
Author Organization [facility] Care Team Providers Care Science Teacher Name Role Phone Juan Ramon Jean Unavailable Unavailable AdeleJuan Ramon marie Unavailable Unavailable DOMENICA OLIVA Unavailable Unavailable Shawna Mcfadden DO Primary Care Provider Yo Blank Unavailable Gayathri Adams Unavailable Tamar Sosa Unavailable KARY ., DR VARGAS Attending Unavailable KARY ., DR VARGAS Consulting Unavailable MISC, DR TRAORE Primary Care Unavailable KARY ., DR VARGAS Admitting Unavailable HIGHLANDER, JOY Reis Admitting Unavailable DEFRANCE, DR METZGER Primary Care Unavailable ZIEBER, DR ONEL Sesay Consulting Unavailable HIGHLANDER, JOY Reis Attending Unavailable HIGHLANDERJOY Consulting Unavailable SHAMMO, RORY Admitting Unavailable SHAMMO, RORY Attending Unavailable SHAMMO, RORY Consulting Unavailable MISC, DR TRAORE Primary Care Unavailable MISC, DR TRAORE Primary Care Unavailable MISC, DR TRAORE Admitting Unavailable MISC, DR TRAORE Attending Unavailable MISC, DR TRAORE Consulting Unavailable Jan Garg Unavailable DOMENICA OLIVA Primary Care Physician HILARY GRANADO Referring Unavailable HILARY GRANADO Attending Unavailable Shawna Mcfadden DO Primary Care Provider Shawna Mcfadden DO Primary Care Provider [phone] MD Yo Blank Attending Provider DO Shawna Mcfadden Primary Care Provider LULY ENGLISH Attending Unavailable FELTER, GABY A Attending Unavailable SHAMMO, RORY Referring Unavailable RUMSCHLAG, SHAWNA K Primary Care Unavailable SHAMMO, RORY Referring Unavailable RUMSCHLAG, SHAWNA K Primary Care Unavailable PETE SILVER E Attending Unavailable SILVER, PETE E Referring Unavailable RUMSCHLAG, SHAWNA K Primary Care Unavailable SILVER PETE E Admitting Unavailable SILVER, PETE E Attending Unavailable RUMSCHLAG, SHAWNA K Referring Unavailable RUMSCHLAG, SHAWNA K Primary Care Unavailable NON STAFF Primary Care Unavailable Yo Blank Admitting Unavailable Yo Blank Attending Unavailable Myrtle Cerna Admitting Unavailable ErynMyrtle Attending Unavailable Shammo, Rory T Primary Care Unavailable Rumschlag, Shawna Primary Care Unavailable DittYo dwyer Admitting Unavailable DittYo dwyer Attending Unavailable RUMSCHLAG, SHAWNA Primary Care Unavailable [...] Unavailable RUMSCHLAG, SHAWNA Primary Care Unavailable RUMSCHLAG, HSAWNA Primary Care Unavailable RUMSCHLAG, SHAWNA Referring Unavailable RUMSCHLAG, SHAWNA Primary Care Unavailable RUMSCHLAG, SHAWNA Referring Unavailable SIL SULLIVAN Attending Unavailable RUMSCHLAG, SHAWNA Primary Care Unavailable RUMSCHLAG, SHAWNA Primary Care Unavailable Allergies Allergy Classification Reported Allergen(s) Allergy Type Date of Onset Reaction(s) Facility (20 sources) cephalexin; Translations: [Keflex] Drug Allergy 3 [facility] Repository (4 sources) citalopram; Translations: [CeleXA] Drug Allergy 3 AOF, heart palpitation [facility] Repository (14 sources) Cephalexin; Translations: [CEPHALEXIN] Drug Allergy 7 [facility] Work Phone: (20 sources) Citalopram; Translations: [CITALOPRAM] Drug Allergy 7 Hives, anaphylaxis [facility] (5 sources) metFORMIN Drug Allergy Unknown [employer] Other (19 sources) metFORMIN; Translations: [METFORMIN] Drug Allergy 3 Unknown [facility] (7 sources) POISON DEVORAH EXTRACT; Translations: [POISON DEVORAH EXTRACT] Drug Allergy 3 [facility] (1 source) Cephalexin Drug Allergy 4 [facility] Repository (1 source) Citalopram Drug Allergy 4 [facility] Repository (1 source) metFORMIN Drug Allergy 4 [facility] Repository (2 sources) Metformin And Related Propensity to adverse reactions to drug 4 Other (See Comments) REQQI Medications Current Medications Medication Drug Class(es) Dates Sig (Normalized) Sig (Original) [id number] 200 actuat albuterol 0.09 mg/actuat metered dose [...] Active ascorbic acid 500 mg oral tablet (10 sources) Vitamin C Start: 3 take 1 tablet by mouth in the morning, then take 1 tablet by mouth at bedtime ascorbic acid (VITAMIN C) 500 mg tablet Take 1 tablet (500 mg total) by mouth in the morning and 1 tablet (500 mg total) before bedtime. 0 02/24/2023 Active bifidobacterium infantis 4 mg oral capsule (11 sources) Start: 3 take 4 mg by mouth once daily Align 4 MG as directed Orally ONCE DAILY for 30 days Dec, Active blood-glucose meter (TRUE METRIX GLUCOSE METER) misc (6 sources) Start: 9 blood-glucose meter (TRUE METRIX GLUCOSE METER) [facility] [place] to test BLOOD SUGAR TWICE DAILY 1 each 0 06/17/2018 Active cetirizine hydrochloride 10 mg oral tablet (15 sources) Histamine-1 Receptor Antagonist Start: 0 take 1 tablet by mouth once daily cetirizine (ZyrTEC) 10 mg tablet TAKE 1 TABLET BY MOUTH DAILY 30 tablet 5 02/06/2020 Active cholecalciferol 0.05 mg oral capsule (14 sources) Vitamin D Start: 2 take 1 [...] mg docusate sodium 100 mg oral capsule (9 sources) Start: 01-07-2023 docusate sodiu m (COLACE) 100 mg capsule Start: 01-07-2023 take 3 capsules by m outh every twenty-four hours Docusate Sodium 100 MG 3 CAPSULES Orally Once a day for 30 days Dec, Active trulicity 3 mg/0.5ml solution pen-injector (8 sources) GLP-1 Receptor Agonist Trulicity 3 MG/0.5ML as directed Subcutaneous WEEKLY Active DULoxetine 30 mg delayed release oral capsule (5 sources) Serotonin and Norepinephrine Reuptake Inhibitor Start: 03-31-19 End: 04-30-19 24 take 1 capsule by mouth in the morning DULoxetine (CYMBALTA) 30 mg capsule Take 1 capsule (30 mg total) by mouth in the morning. 30 capsule 3 04/30/2023 Active empagliflozin 25 mg oral tablet (20 [...] Active ferrous sulfate 325 mg oral tablet (12 sources) Start: 04-09-2020 take 1 tablet by mouth once daily ferrous sulfate 325 (65 FE) mg tablet TAKE 1 TABLET BY MOUTH DAILY 30 tablet 5 04/09/2020 Active fexofenadine hydrochloride 60 mg oral tablet (12 sources) Histamine-1 Receptor Antagonist take 1 tablet [...] / neomycin 3.5 mg/ml / polymyxin b 30975 unt/ml otic solution (1 source) Aminoglycoside Antibacterial, Polymyxin-class Antibacterial, Corticosteroid Start: 10-22-2021 End: 10-29-2021 pxwpnxol-iwapidxqn-cdjgjpooe isone (CORTISPORIN) 3.5-61077-[address] 4 drops into the left ear 3 times daily for 7 days Instill into left Ear TID x 7 days 10 mL 0 10/22/2021 10/29/2021 Active hydrOXYzine hydrochloride 25 mg oral tablet (6 sources) Antihistamine Start: 10-21-2017 take 1 tablet [...] 03/20/2018 Active take 1 tablet by elan every six hours as needed for pain [...] Active 10 ml methocarbamol 100 mg/ml injection (7 sources) Muscle Relaxant Start: 10-14-2018 Robaxin 100 mg/mL inj Refills(s) 0 Start Date: 10/14/18 Status: Ordered take 1 tablet by elan th three times daily methocarbamol (ROBAXIN) 500 MG tablet Ta ke 500 mg by mouth 3 times daily 0 Active montelukast 10 mg oral tablet (20 sources) Leukotriene Receptor Antagonist Start: 10-14-2018 take 1 tablet by mouth once daily montelukast (SINGULAIR) 10 mg tablet TAKE 1 TABLET BY MOUTH NIGHTLY 30 tablet 0 07/16/2020 Active ttetgaqg-wspk-IS-ca lcium &mins (THERAGRAN-M) 9 mg iron-400 mcg tablet (6 sources) zsypijzr-bxcc-II -c alcium &mins (THERAGRAN-M) 9 mg iron-400 [...] 60 tablet 2 12/02/2022 Active NON FORMULARY (12 sources) NON FORMULARY Hair, Skin & Nails - 2 gummies in the morning 0 Active NON FORMULARY Ne osporin cream- applies to bilateral nostrils 3 times a day 0 Active omeprazole 20 mg delayed release oral capsule (6 sources) Proton Pump Inhibitor take 2 capsules [...] 05/10/2020 Active plecanatide 3 mg oral tablet (4 sources) Start: 023 take 1 tablet by mouth in the morning TRULANCE 3 mg tablet Take 1 tablet by mouth in the morning. 0 02/27/2023 Active Start: 02-05-2023 take 1 tablet by elan th every twenty-four hours Trulance 3 MG 1 tablet Orally Once a day for 30 days Jan, Active polyethylene glycol 3350 451735 mg / potassium chloride 2970 mg / sodium bicarbonate 6740 mg / sodium chloride 5860 mg / sodium sulfate 91996 mg powder for oral solution (2 sources) Osmotic Laxative Start: 03-17-2023 Golytely 236 GM 236 ml Orally 8 ounces every 15 minutes for 1 days PLEASE CHECK ALLERGIES Mar, Active promethazine hydrochloride 25 mg oral tablet (1 source) Phenothiazine Start: 06-13-2019 take 1 tablet by mouth every six hours as needed for nausea promethazine 25 mg Tab 25 mg = 1 tab(s), Oral, q6hr, PRN Nausea, # 20 tab(s), Refills(s) 0, Pharmacy: [id number], 157, cm, 03/10/19 12:21:00 EST, Height/Length Measured, 100.7, kg, 03/10/19 12:21:00 EST, Weight Measured Start Date: 06/13/19 Status: Ordered rizatriptan 10 mg oral tablet (20 sources) Serotonin-1b and Serotonin-1d Receptor Agonist Start: 01-16-2019 take 1 tablet by mouth every two [...] 1.5 ml semaglutide 1.34 mg/ml pen injector (15 sources) Start: 01-15-2022 semaglutide 1 mg/dose (2 mg/1.5 mL) pen injector 2 mg once a week. 0 01/15/2022 Active Start: 01-15-2022 semaglutide 1 mg/dose (2 mg/1.5 [...] day Active temazepam 15 mg oral capsule (6 sources) Benzodiazepine take 1 capsule by mouth once daily as needed for sleep temazepam (RESTORIL) 15 MG capsule Take 15 mg by mouth nightly as needed for Sleep 0 Active tiZANidine 4 mg oral tablet (20 sources) Central alpha-2 Adrenergic Agonist Start: tiZANidine (ZANAFLEX) 4 mg tablet Start: 10-14-2018 tizanidine 4 m g oral capsule Refills(s) 0 Start Date: 10/14/18 Status: Ordered take 2 tablets by mo [facility] every twenty-four hours tiZANidine HCl 4 MG 2 tablet Orally daily Active take 1 tablet by [facility] every twelve hours tiZANidine HCl 4 MG 1 tablet Orally TWICE A DAY Active topiramate 200 mg oral tablet (6 sources) take 1 tablet by mouth once daily topiramate (TOPAMAX) 200 MG tablet Take 200 mg by mouth daily 0 Active traMADol hydrochloride 50 mg oral tablet (10 sources) Opioid Agonist take 1 tablet by mouth once daily as needed for pain traMADoL (ULTRAM) 50 mg tablet Take 1 tablet (50 mg total) by mouth daily as needed for pain. 0 Active Ultram Active traZODone hydrochloride 50 mg oral tablet (20 sources) Serotonin Reuptake Inhibitor Start: 04-17-2020 traZODone (DESYREL) 50 mg tablet as needed. 0 04/17/2020 Active Trulance 3 MG (1 source) Start: 02-05-2023 take 1 tablet by mouth once daily Trulance 3 MG 1 tablet Orally Once a day for 30 days Jan, Active TRULICITY 3 mg/0.5 mL pen injector (6 sources) Start: 10-15-2022 TRULICITY 3 mg/0.5 mL pen injector Injects on Sundays 0 10/15/2022 Active Ventolin HFA 90 mcg/inh Aerosol (1 source) Start: 10-14-2018 Ventolin HFA 9 0 mcg/inh Aerosol Refill(s) 0 Start Date: 10/14/18 Status: Ordered Vitamin B Complex (6 sources) Start: 01-16-2020 take 1 tablet by mouth once daily B COMPLEX-VITAMIN B12 tablet TAKE 1 TABLET BY MOUTH DAILY 30 tablet 5 01/16/2020 Active Vitamin D (13 sources) Vitamin D Active zonisamide 100 mg oral capsule (6 sources) Anti-epileptic Agent take 1 capsule by [...] as directed Subcutaneous Not-Taking polyethylene glycol 3350 47569 mg powder for oral solution (7 sources) [...] health services in other specified circumstances] Onset: 04-21-2023 Episodic Anxiety disorders (20 sources) Posttraumatic stress [...] with hyperglycemia] Chronic Diabetes mellitus without complication (6 sources) 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; Translations: [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s] Onset: 11-10-2017 11-10-2017 Chronic Diverticulosis and diverticulitis (6 sources) Diverticulitis; Translations: [Diverticulitis of intestine, part [...] Spondylosis; intervertebral disc disorders; other back problems (19 sources) Displacement of cervical intervertebral disc; Translations: [Other cervical disc displacement, unspecified cervical region] Onset: 09-21-2017 01-11-2018 Chronic Sprains and strains (2 sources) Strain of [...] Other Problems Problem Classification Problem Date Documented Date Episodic/Chronic Biliary tract disease (6 sources) Acute cholecystitis; Translations: [Acute cholecystitis] Onset: 09-15-2016 09-15-2016 Episodic Complications of surgical procedures or medical care (6 sources) Abscess; Translations: [Infection following a procedure, other surgical site, initial encounter] Onset: 09-28-2016 09-28-2016 Episodic Immunizations and screening for infectious disease (1 source) Encounter for screening for other viral diseases; Translations: [ENC SCREENING FOR OTH VIRAL DZ] Onset: 02-25-2022 Episodic Lymphadenitis (6 sources) Axillary lymphadenopathy; Translations: [Localized enlarged lymph nodes] Onset: 05-10-2020 05-10-2020 Episodic Mood disorders (6 sources) Mood disorders Onset: 05-02-2020 05-02-2020 Other [...] [PAIN IN LEFT ANKLE] Onset: 01-29-2022 Episodic Spondylosis; intervertebral disc disorders; other back problems (13 sources) 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; Translations: [Intervertebral disc 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] Onset: 12-02-2022 12-16-2022 Episodic Unclassified (6 sources) Onset: 02-10-2020 02-10-2020 Results Test Name [...] injury 2nd fall last night parking lot michael meza, occipital now frontal headache Decision Support Exception [...] Andi Montoya MD 04/20/23 Final result Normal [facility] CT Cervical spine WO contras ton 04-20-2023 Radiology Study observation (narrative) [facility] CT HEAD WO CONTRASTon 2023 CT HEAD [...] injury 2nd fall last night parking lot michael de leony, occipital now frontal headache TECHNOLOGIST PROVIDED HISTORY: closed head injury 2nd fall last night parking lot michael meza, occipital now frontal headache Decision Support Exception [...] Andi Montoya MD 04/20/23 Final result Normal [facility] CT Head WO contraston 2023 Radiology Study observation (narrative) [facility] No Panel Informationon 04-[address] abnormal ity identified in the brain. No acute osseous abnormality identified in the cervical spine. [facility] RIS CONSOLIDATED EXAMINATION: CT OF THE CERVICAL SPINE [...] There is no prevertebral soft tissue swelling. [facility] RIS CONSOL[facility] Andi Montoya MD - 04/20/2023 EXAMINATION: [...] osseous abnormality identified in the cervical spine. [facility] No Panel InformationOrdered By: Andi Montoya on 04-20-2023 [facility] Work Phone: Glucose Glucometer (BldC) [M ass/Vol]on 03-27-2023 Glucose [Mass/Vol] 151 mg/dL High 65-99 [facility] Glucose Poct Glucometerson 0 03-18-2023 Commemt1 Glu2: Cleaned Meter Normal [facility] Comment on above: Result Comment: PERF ORMED BY: [facility] [address] [facility] [address] PATHOLOGIST PROOFER PREPRESS SHA VALERA M.D. Performed By: #### G LULS #### Point of Care testing , Glucose [Mass/Vol] 87 mg/dL Normal [facility] Comment on above: Result Comment: [facility] Glucose Reference Range is dependent on time and content of last meal. Glucose of more than 200 mg/dL in a nonstressed, ambulatory subject supports the diagnosis of Diabetes Mellitus. Performed By: #### G LULS #### Point of Care testing , HCG,Urineon 03-18-2023 Beta HCG ( test) Ql (U) Negative Normal [facility] Comment on above: Result Comment: PERF ORMED BY: [facility] [address] [place] [address] PATHOLOGIST PROOFER PREPRESS SHA VALERA M.D. Performed By: #### U HCG #### [facility] [address] CBC AND AUTO DIFFon 03-16-19 24 ABSOLUTE BASOPHIL 0.0 X10E9/L Normal 0.0-0.2 [facility] Comment on above: Performed By: #### C BCA CMP, 18349-0, TSHR #### [facility] ([id number]) [address], [address] [place] [address] ABSOLUTE NEUTROPHIL 7.7 X10E9/L High 1.5-6.6 [facility] Comment on above: Performed By: #### C BCA, CMP, 24918-8, TSHR #### [facility] ([id number]) [address], [address] [place] [address] Basophils/100 WBC (Bld) 0.3 % Normal [facility] Comment on above: Performed By: #### C BCA, CMP, 44251-2, TSHR #### [facility] ([id number]) [address], [address] [place] [address] Eosinophils (Bld) [#/Vol] 0.1 10*3/uL Normal 0.0-0.4 [facility] Comment on above: Performed By: #### C BCA, CMP, 25452-8, TSHR #### [facility] ([id number]) [address], [address] [place] [address] Eosinophils/100 WBC (Bld) 1.1 % Normal [facility] Comment on above: Performed By: #### C BCA, CMP, 84697-4, TSHR #### [facility] ([id number]) [address], [address] [place] [address] Erythrocyte distribution width (RBC) [Ratio] 14.6 % Normal 11.5-15.0 [facility] Comment on above: Performed By: #### C ADITYA CMP, 08137-4, TSHR #### [facility] ([id number]) [address] [place] [address] Hematocrit (Bld) [Volume fraction] 45.7 % Normal 35-47 [facility] Comment on above: Performed By: #### C ADITYA CMP, 07212-6, TSHR #### [facility] ([id number]) [address], [facility] [address] [place] [address] Hemoglobin (Bld) [Mass/Vol] 15.0 g/dL Normal 11.7-15.5 [facility] Comment on above: Performed By: #### C ADITYA CMP, 85300-7, TSHR #### [facility] ([id number]) [address] [facility] [address] [place] [address] Lymphocytes (Bld) [#/Vol] 2.4 10*3/uL Normal 1.0-3.5 [facility] Comment on above: Performed By: #### Terrell BURGESS CMP, 80315-5, TSHR #### [facility] ([id number]) [address], [address] [place] [address] Lymphocytes/100 WBC (Bld) 22.1 % Normal [facility] Comment on above: Performed By: #### Terrell BURGESS CMP, 13969-5, TSHR #### [facility] ([id number]) [address], [address] [place] [address] MCH (RBC) [Entitic mass] 29.0 pg Normal 27-34 [facility] Comment on above: Performed By: #### C BCA CMP, 07322-2, TSHR #### [facility] ([id number]) [address], [address] [place] [address] MCHC (RBC) [Mass/Vol] 32.8 g/dL Normal 32-36 [facility] Comment on above: Performed By: #### C BCA, CMP, 67668-7, TSHR #### [facility] ([id number]) [address], [address] [place] [address] MCV (RBC) [Entitic vol] 88 fL Normal 80-100 [facility] Comment on above: Performed By: #### C BCA, CMP, 96491-8, TSHR #### [facility] ([id number]) [address], [address] [place] [address] Monocytes (Bld) [#/Vol] 0.6 10*3/uL Normal 0-0.9 [facility] Comment on above: Performed By: #### C ADITYA, CMP, 63922-6, TSHR #### [facility] ([id number]) [address], [facility] [address] [place] [address] Monocytes/100 WBC (Bld) 5.7 % Normal [facility] Comment on above: Performed By: #### Terrell BCA, CMP, 67974-2, TSHR #### [facility] ([id number]) [address], [facility] [address] [place] [address] Neutrophils/100 WBC (Bld) 70.8 % Normal [facility] Comment on above: Performed By: #### Terrell BCA, CMP, 17456-1, TSHR #### [facility] ([id number]) [address], [address] [place] [address] Platelet mean volume (Bld) [Entitic vol] 9.7 fL Normal 7-12 [facility] Comment on above: Performed By: #### C BCA, CMP, 48779-0, TSHR #### [facility] ([id number]) [address], [address] [place] [address] Platelets (Bld) [#/Vol] 303 10*3/uL Normal 150-450 [facility] Comment on above: Performed By: #### C BCA, CMP, 74997-3, TSHR #### [facility] ([id number]) [address], [address] [place] [address] RBC COUNT 5.17 X10E12/L Normal 3.80-5.20 [facility] Comment on above: Performed By: #### C BCA, CMP, 78529-0, TSHR #### [facility] ([id number]) [address], [address] [place] [address] WBC (Bld) [#/Vol] 10.9 10*3/uL Normal 4.0-11.0 [facility] Comment on above: Performed By: #### C BCA, CMP, 55175-3, TSHR #### [facility] ([id number]) [address], [address] [place] [address] COMPREHENSIVE METABOLIC PANE Dirk 03-16-2023 Albumin [Mass/Vol] 4.7 g/dL Normal 3.2-5.3 [facility] Comment on above: Performed By: #### C BCA, CMP, 96554-2, TSHR #### [facility] ([id number]) [address], [address] [place] [address] ALP [Catalytic activity/Vol] 74 U/L Normal 39-130 [facility] Comment on above: Performed By: #### C BCA, CMP, 18794-1, TSHR #### [facility] ([id number]) [address], [address] [place] [address] ALT [Catalytic activity/Vol] 22 U/L Normal 0-31 [facility] Comment on above: Performed By: #### C BCA, CMP, 83934-0, TSHR #### [facility] ([id number]) [address], [address] [place] [address] Anion gap [Moles/Vol] 12 mmol/L Normal 5-15 [facility] Comment on above: Performed By: #### C BCA, CMP, 59155-6, TSHR #### [facility] ([id number]) [address], [address] [place] [address] AST [Catalytic activity/Vol] 20 U/L Normal 0-41 [facility] Comment on above: Performed By: #### C BCA, CMP, 40400-9, TSHR #### [facility] ([id number]) [address], [address] [place] [address] Bilirubin [Mass/Vol] 0.5 mg/dL Normal 0.3-1.2 [facility] Comment on above: Performed By: #### C BCA, CMP, 19891-0, TSHR #### [facility] ([id number]) [address], [address] [place] [address] Calcium [Mass/Vol] 9.9 mg/dL Normal 8.5-10.5 [facility] Comment on above: Performed By: #### C BCA, CMP, 08231-2, TSHR #### [facility] ([id number]) [address], [address] [place] [address] Chloride [Moles/Vol] 105 mmol/L Normal 98-109 [facility] Comment on above: Performed By: #### C BCA, CMP, 95022-4, TSHR #### [facility] ([id number]) [address], [address] [place] [address] CO2 [Moles/Vol] 25 mmol/L Normal 22-32 [facility] Comment on above: Performed By: #### C BCA, CMP, 87987-3, TSHR #### [facility] ([id number]) [address], [address] [place] [address] Creatinine [Mass/Vol] 0.74 mg/dL Normal 0.40-1.00 [facility] Comment on above: Result Comment: METH OD TRACEABLE TO IDMS STANDARD Performed By: #### C BCA, CMP, 79863-1, TSHR #### [facility] ([id number]) [address], [address] [place] [address] eGFR (CKD-EPI) NON-RACE DEPENDENT >90 Normal >59 [facility] Comment on above: Result Comment: Reported eGFR is based on the CKD-EPI 2020 equation that does not use a race coefficient. Performed By: #### C JAHAIRA BURGESS, 04206-8, TSHR #### [facility] ([id number]) [address], [address] [place] [address] Glucose [Mass/Vol] 143 mg/dL High 65-99 [facility] Comment on above: Performed By: #### C JAHAIRA BURGESS, 28265-0, TSHR #### [facility] ([id number]) [address], [address] [place] [address] Potassium [Moles/Vol] 3.8 mmol/L Normal 3.5-5.0 [facility] Comment on above: Performed By: #### C JAHAIRA BURGESS, 17000-1, TSHR #### [facility] ([id number]) [address], [address] [place] [address] Protein [Mass/Vol] 7.8 g/dL Normal 6.0-8.0 [facility] Comment on above: Performed By: #### C JAHAIRA BURGESS, 83284-5, TSHR #### [facility] ([id number]) [address], [address] [place] [address] Sodium [Moles/Vol] 142 mmol/L Normal 134-146 [facility] Comment on above: Performed By: #### C JAHAIRA BURGESS, 43439-0, TSHR #### [facility] ([id number]) [address], [address] [place] [address] Urea nitrogen [Mass/Vol] 17 mg/dL Normal 5-23 [facility] Comment on above: Performed By: #### Terrell BURGESS CMP, 56461-0, TSHR #### [facility] ([id number]) [address], [address] [place] [address] HGB A1C (GLYCO-HGB)on 2023 Glucose [Mass/Vol] 117 mg/dL Normal [facility] Comment on above: Performed By: #### Terrell BURGESS CMP, 47105-1, TSHR #### [facility] ([id number]) [address], [address] [place] [address] HbA1c (Bld) [Mass fraction] 5.7 % High 4.4-5.6 [facility] Comment on above: Result Comment: NOTE ADA Guidelines Result HgbA1c Normal : less than 5.7 % Prediabetes : 5.7 % to 6.4 % Diabetes : > 6.4 % Use with caution in patients with abnormal hemoglobin variants as the half-life of red blood cells and in vivo glycation rates are affected. Performed By: #### Terrell BURGESS CMP, 84662-4, TSHR #### [facility] ([id number]) [address], [address] [place] [address] Lipid 1996 panelon 4 Cholesterol [Mass/Vol] 132 mg/dL Low 150-200 [facility] Comment on above: Performed By: #### Terrell BURGESS CMP, 58490-9, TSHR #### [facility] ([id number]) [address], [address] [place] [address] Cholesterol in HDL [Mass/Vol] 58 mg/dL Normal >39 [facility] Comment on above: Result Comment: HDL <40 mg/dL - High Risk HDL > or = 40mg/dL- Desirable HDL >60 mg/dL - Negative Risk Performed By: #### C BCA, CMP, 23080-7, TSHR #### [facility] ([id number]) [address], [address] [place] [address] Cholesterol in LDL [Mass/Vol] 51 mg/dL Normal <130 [facility] Comment on above: Result Comment: LDL <100 mg/dL - Desirable LDL >160 mg/dL - High Risk Performed By: #### C BCA, CMP, 94039-2, TSHR #### [facility] ([id number]) [address], [address] [place] [address] Cholesterol in VLDL [Mass/Vol] 23 mg/dL Normal 0-30 [facility] Comment on above: Performed By: #### C BCA, CMP, 00291-1, TSHR #### [facility] ([id number]) [address], [address] [place] [address] CHOLESTEROL:HDL 2.3 Normal 1.0-5.0 [facility] Comment on above: Performed By: #### C BCA, CMP, 25201-2, TSHR #### [facility] ([id number]) [address], [address] [place] [address] Triglyceride [Mass/Vol] 114 mg/dL Normal 27-150 [facility] Comment on above: Performed By: #### C BCA, CMP, 56339-8, TSHR #### 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 ([id number]) [address] [facility], [address] [place] [address] PT - Assessmentson 3 PT - Assessments [id number]#1.00CD:12 7 Normal [facility] ST - Assessmentson 3 ST - Assessments [id number]#1.00CD:127 Normal [facility] Consenton 09-25-2022 Consent [id number]#1.00CD:127 Normal [facility] Outside Recordson 2022 Outside Records [id number]#1.00CD:127 Normal [facility] ST - Orderson 2022 ST - Orders [id number]#1.00CD:127 Normal [facility] ST - Orders [id number]#1.00CD:127 Normal [facility] ST - Otheron 2022 ST - Other [id number]#1.00CD:127 Normal [facility] PAP ACOG PANEL 2: 30 to 65on 05-27-2022 . . Normal [facility] Comment on above: Result Comment: Perf ormed at: WB Performed By: #### 4 [id number] #### [facility] [address] [address] [address] Do Aguilar Age Gdln ACOG Testing - [facility] Comment on above: Performed By: #### 4 [id number] #### [facility] [address] [address] [address] Do Aguilar DIAGNOSIS: Comment Normal [facility] Comment on above: Result Comment: NEGA TIVE FOR INTRAEPITHELIAL LESION OR MALIGNANCY. Performed at: WB Performed By: #### 4 [id number] #### [facility] [address] [address] [address] Do Aguilar HPV Aptima Negative Normal Negative [facility] Comment on above: Result Comment: This nucleic acid amplification test detects fourteen high-risk HPV types (16,18,31,33,35,39,45,51,52,56,58,59,66,68) without differentiation. Performed at: =G Performed By: #### 4 [id number] #### [facility] [address] [address] [address] Do Aguilar HPV Genotype Reflex Comment Normal [facility] Comment on above: Result Comment: Crit eria not met, HPV Genotype not performed. Performed at: WB Performed By: #### 4 [id number] #### [facility] [address] [address] [address] Do Aguilar Methodology: Comment Normal [facility] Comment on above: Result Comment: This liquid based ThinPrep(R) pap test was screened with the use of an image guided system. Performed at: WB Performed By: #### 4 [id number] #### [facility] [address] [place] [address] Dr. Do Aguilar Note: Comment Normal [facility] Comment on above: Result Comment: The Pap smear is a screening test designed to aid in the detection of premalignant and malignant conditions of the uterine cervix. It is not a diagnostic procedure and should not be used as the sole means of detecting cervical cancer. Both false-positive and false-negative reports do occur. . Performed at: WB Performed By: #### 4 [id number] #### [facility] [address] [place] [address] Dr. Do Aguilar Performed by: Comment Normal [facility] Comment on above: Result Comment: Melissa Ramachandran, Qa Auditor (ASCP) Performed at: WB Performed By: #### 4 [id number] #### [facility] [address] [place] [address] Dr. Do Aguilar Specimen adequacy: Comment Normal [facility] Comment on above: Result Comment: Sati sfactory for evaluation. Endocervical and/or squamous metaplastic cells (endocervical component) are present. Performed at: WB Performed By: #### 4 [id number] #### [facility] [address] [place] [address] Dr. Do Aguilar HEPATITIS C AB CASCADE TO QU ANT PCR GENOon 02-18-2022 HCV AB <0.1 Normal 0.0-0.9 [facility] Comment on above: Performed By: #### H EPCASC #### [facility] [address] [place] [address] Dr. Do Aguilar Interpretation: Comment Normal [facility] Comment on above: Result Comment: Nega tive Not infected with HCV, unless recent infection is suspected or other evidence exists to indicate HCV infection. Performed By: #### H EPCASC #### [facility] [address] [place] [address] Dr. Do Aguilar LIVER PROFILEon 02-17-2022 Albumin [Mass/Vol] 3.6 g/dL Normal 3.4-5.0 [facility] Comment on above: Performed By: #### L IVER #### [facility] [address] [place] [address] Dr. Do Aguilar Albumin/Globulin [Mass ratio] 0.9 {ratio} Normal [facility] Comment on above: Performed By: #### L IVER #### [facility] [address] [place] [address] Dr. Do Aguilar ALP [Catalytic activity/Vol] 79 U/L Normal 46-116 [facility] Comment on above: Performed By: #### L IVER #### [facility] [address] [place] [address] Dr. Do Aguilar ALT [Catalytic activity/Vol] 51 U/L Normal 14-59 [facility] Comment on above: Performed By: #### L IVER #### [facility] [address] [place] [address] Dr. Do Aguilar AST [Catalytic activity/Vol] 33 U/L Normal 15-37 [facility] Comment on above: Performed By: #### L IVER #### [facility] [address] [place] [address] Dr. Do Aguilar BILI, CONJUGATED 0.1 mg/dL Normal 0.0-0.2 [facility] Comment on above: Performed By: #### L IVER #### [facility] [address] [place] [address] Dr. Do Aguilar Bilirubin [Mass/Vol] 0.3 mg/dL Normal 0.2-1.0 [facility] Comment on above: Performed By: #### L IVER #### [facility] [address] [place] [address] Dr. Do Aguilar Globulin (S) [Mass/Vol] 4.2 g/dL Normal [facility] Comment on above: Performed By: #### L IVER #### [facility] [address] [place] [address] Dr. Do Aguilar Protein [Mass/Vol] 7.8 g/dL Normal 6.4-8.2 [facility] Comment on above: Performed By: #### L IVER #### [facility] [address] [place] [address] Dr. Do Aguilar TSHon 02-17-2022 TSH 0.457 uIU/mL Normal 0.358-3.74 0 [facility] Comment on above: Performed By: #### T SH #### [facility] [address] [place] [address] Dr. Do Aguilar VITAMIN B12on 02-17-2022 Cobalamin (Vitamin B12) [Mass/Vol] 1864.0 pg/mL Critically high 193.0-986. 0 [facility] Comment on above: Performed By: #### V ITB12 #### [facility] [address] [place] [address] Dr. Do Aguilar History and Physicalon 12-04 History and Physical [id number]#1.[facility] - Surgeon/P godwin 12-04-2016 Operative Report - Surgeon/Physician [id number]#1.00[facility] Coding Summaryon 11-26-2016 Coding Summary CODING DATE: 017 [facility] STATUS: Home PAYOR: Medicaid HMO ADMIT DX: REASON FOR VISIT DX: R10.13 Epigastric pain R10.11 Right upper quadrant pain FINAL DX: PRINCIPAL: K29.70 Gastritis, unspecified, without bleeding SECONDARY: PROCEDURES DOCTOR NAME DATE 05381 Esophagogastroduodenoscopy , Juan Ramon Jean MD 11/21/2016 flexible, transoral; with biopsy, single or multiple NOTE: The code number assigned matches the documented diagnosis and / or procedure in the patient's chart. However, the narrative phrase printed from the coding software may appear abbreviated, or result in slightly different terminology. Coded By: Rosalba Laureano Date Saved: 11/26/2016 01:09 pm [facility] Consent Formson 11-24-2016 Consent Forms [id number]#1.00OTGTIFF [facility] Intraoperative Noteon 2016 Intraoperative Note [id number]#1.00OTGTIFF [facility] Intraoperative Note [id number]#1.00[facility] Report - Surgeon/P godwin 11-24-2016 Operative Report - Surgeon/Physician DATE OF PROCEDURE: 11/21/2016PREOPERATIVE DIAGNOSIS: Epigastric pain/right upper quadrant pain.POSTOPERATIVE DIAGNOSIS: Moderate gastritis.PROCEDURE PERFORMED: EGD with biopsy x1 from the antrum of the stomach forH. pylori testing.SURGEON: Juan Ramon Jean M.D.ANESTHESIA: Conscious sedation with Versed 6 mg IV, Demerol 50 mg IV.FINDINGS: As above.DISPOSITION: To the [facility] area in fair condition.INDICATIONS: The patient [...] in two weeks.Juan Ramon Jean M.D.JOB #: [id number]: 11/21/2016T: 11/21/2016[Electronically Signed on: 12/03/2016 07:09 EDT] Juan Ramon Jean MD Generated Domain User for [id number][Verified on: 12/03/2016 07:09 EDT] Juan Ramon Jean MD[Transcribed on: 11/21/2016 11:37 EDT]GDU [facility] Telemetry Stripson 7 Telemetry Strips [id number]#1.00OTGTIFF [facility] Telemetry Strips [id number]#1.00OTGTIFF [facility] H. Pylori Gastricon 11-22-19 17 H. Pylori Rico Int Ctrl Pass [facility] Comment on above: Order Comment: H. (A NTRUM) Result Comment: Pass Performed By: #### 2 [id number] ####[facility] (DEFAULT)[address] [place] [address] H. Pylori Gastric Negative Normal Negative [facility] Comment on above: Order Comment: H. (A NTRUM) Result Comment: Nega tive Performed By: #### 2 [id number] ####[facility] (DEFAULT)[address] [place] [address] Inpatient Clinical Summaryon 11-21-2016 Inpatient Clinical Summary [facility] SURGERYClinical Discharge SummaryPERSON INFORMATIONName KARMA SR Age 36 Years 80Sex FEMALE Language Haitian PCP HAZEL, DAVIDMarital Status [facility] Service Ambulatory SurgeryN [id number] Acct# Arrival 11/21/16 07:22:21Visit Reason EGD - EPIGASTRIC ABDOMINAL PAIN Acuity LOS 013 23:19Address:[address] [place], [place] [address]Comment:PROVIDER INFORMATIONVITALS INFORMATIONVital Sign Triage LatestTemp OralTemp Temporal 36.4 DegC 36.4 DegCTemp IntravascularTemp AxillaryTemp [id number] Sat 100 % 97 %Respiratory Rate 16 [...] llow up:With: Address: When:Juan Ramon Jean [address] [place], [place] [address] Business (1) Within 2 to 4 weeksComments:Call for follow up appointmentWith: Address: When:DOMENICA OLIVA [address] [place], [place] [address] Business (1)DIAGNOSISAcute gastritisComment:PHYS DOC NOTES Normal [facility] Inpatient Patient Summaryon 11-21-2016 Inpatient Patient Summary [address] [id number] patient Discharge InstructionsName: KARMA SRDOB: [birth year] Address: [address] [place] [address] Care Provider:Name: DOMENICA OLIVAPhone: Discharge Diagnosis: Acute [...] or business decisions or sign any legal documentsParkwood Hospital would like to thank you for allowing us to assist you with your healthcare needs. The following includes patient education materials and information regarding your injury/illness.KARMA SR has been given the following list of follow-up instructions, prescriptions, and patient education materials:Follow-up InstructionsWith: Address: When:Juan Ramon Jean [address] [place], [place] [address] Business (1) Within 2 to 4 weeksComments:Call for follow up appointmentWith: Address: When:DOMENICA OLIVA [address] [place] [address] Business (1)MedicationsDuring the course of your visit, [...] for Disease Control and Prevention [facility] 2013 [facility] ord[facility] 11-21-2016 [facility] Intraoperative Record [facility] Intra-Op Record Summary Primary Physician: Juan Ramon Jean MD Finalized Date/Time: 11/21/16 08:37:38 Pt. Name: KARMA SR/Sex: 1980 FEMALE Med Rec #: [id number] Physician: Juan Ramon Jean MD Financial #: [id number] Pt. Type: D Room/Bed: / Admit/Disch: 11/21/16 [...] Jane RN Role Performed Surgeon - Primary Doctor Of Osteopathy Doctor Of Osteopathy Time In 11/21/16 08:06:00 11/21/16 08:06:00 11/21/16 [...] Unfinalizing Freetext Reason for Unfinalizing 11/21/[facility] 08[facility] Normal [facility] MAGR Endo Postoperative Benjamin rdon 11-21-2016 [facility] Endo Postoperative Record [facility] Endo Phase II Record Summary Primary Physician: Juan Ramon Jean MD Finalized Date/Time: 11/21/16 10:02:07 Pt. Name: KARMA SR./Sex: 1980 FEMALE Med Rec #: [id number] Physician: Juan Ramon Jean MD Financial #: [id number] Pt. Type: D Room/Bed: / Admit/Disch: 11/21/16 [...] Signed By: Cammy Barroso RN 11/21/16 10:02 [facility] MAGR Endo Preoperative Recor don 11-21-2016 [facility] Endo Preoperative Record [facility] Endo Pre-Op Record Summary Primary Physician: Juan Ramon Jean MD Finalized Date/Time: 11/21/16 08:27:58 Pt. Name: KARMA SR /Sex: 1980 FEMALE Med Rec #: [id number] Physician: Juan Ramon Jean MD Financial #: [id number] Pt. Type: D Room/Bed: / Admit/Disch: 11/21/16 07:22:21 - Institution: [facility] Text: Patient will be optimally prepared [...] Signed By: Cammy Barroso RN 11/21/16 08:27 [facility] Test Urine 1on U Preg Negative [facility] Comment on above: Result Comment: Nega tive Performed By: #### 3 [id number] ####[facility] (DEFAULT)[address] [place] [address] U Preg Internal Control Pass [facility] Comment on above: Result Comment: Pass Performed By: #### 3 [id number] ####[facility] (DEFAULT)[address] [place] [address] Vital Signs Date Time Vital Sign Value Performing Clinician Facility 04-28-2023 11:21-0500 Body height 160 cm Gil CALVO Work Phone: [facility] 04-28-2023 11:21-0500 Body mass index (BMI) [Ratio] 36.14 kg/m2 Gil CALVO Work Phone: [facility] 04-28-2023 11:21-0500 Body weight 92.53 kg Gil CALVO Work Phone: [facility] 04-28-2023 11:21-0500 Diastolic blood pressure 82 mm[Hg] Gil Alba PA Work Phone: [facility] 04-28-2023 11:21-0500 Heart rate 87 /min Gil Alba PA Work Phone: [facility] 04-28-2023 11:21-0500 Respiratory rate 16 /min Gil CALVO Work Phone: [facility] 04-28-2023 11:21-0500 SaO2% (BldA) [Mass fraction] 97 % Gil CALVO Work Phone: [facility] 04-28-2023 11:21-0500 Systolic blood pressure 122 mm[Hg] Gil CALVO Work Phone: [facility] 04-20-2023 12:41-0500 Body mass index (BMI) [Ratio] 36.49 kg/m2 Shawna Mcfadden DO [facility] Phone[facility] [employer] 04-20-2023 12:41-0500 Body weight 93.44 kg Shawna Rumschlag DO Work Phone: [facility] [employer] 04-20-2023 12:41-0500 Diastolic blood pressure 76 mm[Hg] Shawna Rumschlag DO Work Phone: [facility] [employer] 04-20-2023 12:41-0500 Heart rate 83 /min Shawna Rumschlag DO Work Phone: [facility] [employer] 04-20-2023 12:41-0500 Respiratory rate 16 /min Shawna Rumschlag DO Work Phone: [facility] [employer] 04-20-2023 12:41-0500 SaO2% (BldA) [Mass fraction] 98 % Shawna Rumschlag DO Work Phone: [facility] [employer] 04-20-2023 12:41-0500 Systolic blood pressure 129 mm[Hg] Shawna Rumschlag DO Work Phone: [facility] [employer] 04-20-2023 12:39-0500 Body temperature 97.3 [degF] Shawna Rumschlag DO Work Phone: [facility] [employer] 03-18-2023 11:30-0500 Diastolic blood pressure 84 mm[Hg] MD Yo Blank Work Phone: [facility] 03-18-2023 11:30-0500 Heart rate 95 /min MD Yo Blank Work Phone: [facility] 03-18-2023 11:30-0500 Respiratory rate 16 /min MD Yo Blank Work Phone: [facility] 03-18-2023 11:30-0500 SaO2% (BldA) [Mass fraction] 99 % MD Yo Blank Work Phone: [facility] 03-18-2023 11:30-0500 Systolic blood pressure 123 mm[Hg] MD Yo Blank Work Phone: [facility] 03-05-2023 09:15-0500 Body height 160.02 cm Gayathri Scally Other [employer] Other 03-05-2023 09:15-0500 Body mass index (BMI) [Ratio] 37.57 kg/m2 Gayathri Scally Other [employer] Other 03-05-2023 09:15-0500 Body weight 96.21 kg Gayathri Scally Other [employer] Other 03-05-2023 09:15-0500 Diastolic blood pressure 89 mm[Hg] Gayathri Scally Other [employer] Other 03-05-2023 09:15-0500 Respiratory rate 18 /min Gayathri Scally Other [employer] Other 03-05-2023 09:15-0500 SaO2% (BldA) [Mass fraction] 96 % Gayathri Scally Other [employer] Other 03-05-2023 09:15-0500 Systolic blood pressure 122 mm[Hg] Gayathri Scally Other [employer] Other 03-02-2023 19:24-0500 Body height 160 cm Sil Sullivan DO Work Phone: [employer] 03-02-2023 19:24-0500 Body mass index (BMI) [Ratio] 36.31 kg/m2 Sil Sullivan DO Work Phone: [employer] 03-02-2023 19:24-0500 Body temperature 98.29 [degF] Sil Sullivan DO Work Phone: [employer] 03-02-2023 19:24-0500 Body weight 92.99 kg Sil Sullivan DO Work Phone: [employer] 03-02-2023 19:24-0500 Diastolic blood pressure 98 mm[Hg] Sil Sullivan DO Work Phone: [employer] 03-02-2023 19:24-0500 Heart rate 82 /min Sil Sullivan DO Work Phone: [employer] 03-02-2023 19:24-0500 Respiratory rate 18 /min Sil Sullivan DO Work Phone: [employer] 03-02-2023 19:24-0500 SaO2% (BldA) [Mass fraction] 98 % Sil Sullivan DO Work Phone: [employer] 03-02-2023 19:24-0500 Systolic blood pressure 139 mm[Hg] Sil Sullivan DO Work Phone: [employer] 02-05-2023 09:20-0500 Body height 160.02 cm Jan Garg Other [employer] Other 02-05-2023 09:20-0500 Body mass index (BMI) [Ratio] 36.66 kg/m2 Jan Garg Other [employer] Other 02-05-2023 09:20-0500 Body weight 93.9 kg Jan Garg Other [employer] Other 01-15-2023 09:45-0500 Body height 160.02 cm Gayathri Adams Other [employer] Other 01-15-2023 09:45-0500 Body mass index (BMI) [Ratio] 36.68 kg/m2 Gayathri Scally Other [employer] Other 01-15-2023 09:45-0500 Body weight 93.94 kg Gayathri Scally Other [employer] Other 01-15-2023 09:45-0500 Diastolic blood pressure 83 mm[Hg] Gayathri Scally Other [employer] Other 01-15-2023 09:45-0500 Respiratory rate 18 /min Gayathri Scally Other [employer] Other 01-15-2023 09:45-0500 SaO2% (BldA) [Mass fraction] 99 % Gayathri Scally Other [employer] Other 01-15-2023 09:45-0500 Systolic blood pressure 119 mm[Hg] Gayathri Scally Other [employer] Other 01-07-2023 10:00-0500 Body height 160.02 cm Jan Garg Other [employer] Other 01-07-2023 10:00-0500 Body mass index (BMI) [Ratio] 36.13 kg/m2 Jan Garg Other [employer] Other 01-07-2023 10:00-0500 Body weight 92.53 kg Jna Garg Other [employer] Other 01-07-2023 10:00-0500 Diastolic blood pressure 74 mm[Hg] Jan Garg Other [employer] Other 01-07-2023 10:00-0500 Systolic blood pressure 118 mm[Hg] Jan Garg Other [employer] Other 08-28-2022 09:00-0400 Body height 160.02 cm Tamar Fitt Other [employer] Other 08-28-2022 09:00-0400 Body mass index (BMI) [Ratio] 35.8 kg/m2 Tamar Fitt Other [employer] Other 08-28-2022 09:00-0400 Body weight 91.67 kg Tamar Fitt Other [employer] Other 07-29-2022 10:15-0400 Body height 160.02 cm Gayathri Scally Other [employer] Other 07-29-2022 10:15-0400 Body mass index (BMI) [Ratio] 35.18 kg/m2 Gayathri Scally Other [employer] Other 07-29-2022 10:15-0400 Body weight 90.08 kg Gayathri Scally Other [employer] Other 07-29-2022 10:15-0400 Diastolic blood pressure 84 mm[Hg] Gayathri Scally Other [employer] Other 07-29-2022 10:15-0400 Respiratory rate 18 /min Gayathri Scally Other [employer] Other 07-29-2022 10:15-0400 SaO2% (BldA) [Mass fraction] 99 % Gayathri Scally Other [employer] Other 07-29-2022 10:15-0400 Systolic blood pressure 127 mm[Hg] Gayathri Scally Other [employer] Other 05-20-2022 11:15-0400 Body height 160.02 cm Gayathri Scally Other [employer] Other 05-20-2022 11:15-0400 Body mass index (BMI) [Ratio] 34.52 kg/m2 Gayathri Scally Other [employer] Other 05-20-2022 11:15-0400 Body weight 88.41 kg Gayathri Scally Other [employer] Other 05-20-2022 11:15-0400 Diastolic blood pressure 82 mm[Hg] Gayathri Scally Other [employer] Other 05-20-2022 11:15-0400 Respiratory rate 18 /min Gayathri Scally Other [employer] Other 05-20-2022 11:15-0400 SaO2% (BldA) [Mass fraction] 97 % Gayathri Scally Other [employer] Other 05-20-2022 11:15-0400 Systolic blood pressure 121 mm[Hg] Gayathri Scally Other [employer] Other 04-08-2022 11:15-0500 Body height 160.02 cm Gayathri Scally Other [employer] Other 04-08-2022 11:15-0500 Body mass index (BMI) [Ratio] 34.49 kg/m2 Gayathri Scally Other [employer] Other 04-08-2022 11:15-0500 Body weight 88.32 kg Gayathri Scally Other [employer] Other 04-08-2022 11:15-0500 Diastolic blood pressure 77 mm[Hg] Gayathri Scally Other [employer] Other 04-08-2022 11:15-0500 Respiratory rate 18 /min Gayathri Scally Other [employer] Other 04-08-2022 11:15-0500 SaO2% (BldA) [Mass fraction] 98 % Gayathri Scally Other [employer] Other 04-08-2022 11:15-0500 Systolic blood pressure 110 mm[Hg] Gayathri Scally Other [employer] Other 04-08-2022 10:15-0500 Body height 160.02 cm Tamar Fitt Other [employer] Other 04-08-2022 10:15-0500 Body mass index (BMI) [Ratio] 34.49 kg/m2 Tamar Fitt Other [employer] Other 04-08-2022 10:15-0500 Body weight 88.32 kg Tamar Fitt Other [employer] Other 02-26-2022 10:00-0500 Body height 160.02 cm Tamar Fitt Other [employer] Other 02-25-2022 11:45-0500 Body height 160.02 cm Gayathri Scally Other [employer] Other 02-25-2022 11:45-0500 Body mass index (BMI) [Ratio] 36.63 kg/m2 Gayathri Scally Other [employer] Other 02-25-2022 11:45-0500 Body weight 93.8 kg Gayathri Scally Other [employer] Other 02-25-2022 11:45-0500 Diastolic blood pressure 78 mm[Hg] Gayathri Scally Other [employer] Other 02-25-2022 11:45-0500 Respiratory rate 18 /min Gayathri Scally Other [employer] Other 02-25-2022 11:45-0500 SaO2% (BldA) [Mass fraction] 97 % Gayathri Scally Other [employer] Other 02-25-2022 11:45-0500 Systolic blood pressure 109 mm[Hg] Gayathri Scally Other [employer] Other 01-14-2022 11:45-0500 Body height 160.02 cm Gayathri Scally Other [employer] Other 01-14-2022 11:45-0500 Body mass index (BMI) [Ratio] 39.37 kg/m2 Gayathri Scally Other [employer] Other 01-14-2022 11:45-0500 Body weight 100.84 kg Gayathri Scally Other [employer] Other 01-14-2022 11:45-0500 Diastolic blood pressure 88 mm[Hg] Gayathri Scally Other [employer] Other 01-14-2022 11:45-0500 Respiratory rate 18 /min Gayathri Scally Other [employer] Other 01-14-2022 11:45-0500 SaO2% (BldA) [Mass fraction] 97 % Gayathri Scally Other [employer] Other 01-14-2022 11:45-0500 Systolic blood pressure 124 mm[Hg] Gayathri Scally Other [employer] Other 12-04-2021 12:00-0400 Body height 160.02 cm Gayathri Scally Other [employer] Other 12-04-2021 12:00-0400 Body mass index (BMI) [Ratio] 39.73 kg/m2 Gayathri Scally Other [employer] Other 12-04-2021 12:00-0400 Body weight 101.74 kg Gayathri Scally Other [employer] Other 12-04-2021 12:00-0400 Diastolic blood pressure 74 mm[Hg] Gayathri Scally Other [employer] Other 12-04-2021 12:00-0400 Respiratory rate 18 /min Gayathri Scally Other [employer] Other 12-04-2021 12:00-0400 SaO2% (BldA) [Mass fraction] 95 % Gayathri Scally Other [employer] Other 12-04-2021 12:00-0400 Systolic blood pressure 110 mm[Hg] Gayathri Adams Other [employer] Other 10-29-2021 11:30-0400 Body height 160.02 cm Yo Blank Other [employer] Other 10-29-2021 11:30-0400 Body mass index (BMI) [Ratio] 38.61 kg/m2 Yo Saralaurence Other [employer] Other 10-29-2021 11:30-0400 Body weight 98.88 kg Yo Blank Other [employer] Other 10-29-2021 11:30-0400 Diastolic blood pressure 74 mm[Hg] Yo Rosamaria Other [employer] Other 10-29-2021 11:30-0400 Systolic blood pressure 111 mm[Hg] Yo Rosamaria Other [employer] Other 10-22-2021 13:26-0400 Body temperature 97.2 [degF] Shawna Rumschlag DO Work Phone: [employer] 10-22-2021 13:26-0400 Diastolic blood pressure 71 mm[Hg] Shawna Rumschlag DO Work Phone: [employer] 10-22-2021 13:26-0400 Heart rate 85 /min Shawna Rumschlag DO Work Phone: [employer] 10-22-2021 13:26-0400 Respiratory rate 16 /min Shawna Rumschlag DO Work Phone: [employer] 10-22-2021 13:26-0400 SaO2% (BldA) [Mass fraction] 94 % Shawna Rumschlag DO Work Phone: [facility] [employer] 10-22-2021 13:26-0400 Systolic blood pressure 131 mm[Hg] Shawna Rumschlag DO Work Phone: [facility] [employer] 10-11-2021 23:48-0400 Body height 160 cm Daniel Adkins MD Work Phone: [employer] 10-11-2021 23:48-0400 Body mass index (BMI) [Ratio] 36.67 kg/m2 Daniel Adkins MD Work Phone: [employer] 10-11-2021 23:48-0400 Body temperature 98.6 [degF] Daniel Adkins MD Work Phone: [employer] 10-11-2021 23:48-0400 Body weight 93.89 kg Daniel Adkins MD Work Phone: [employer] 10-11-2021 23:48-0400 Diastolic blood pressure 88 mm[Hg] Daniel Adkins MD Work Phone: [employer] 10-11-2021 23:48-0400 Heart rate 97 /min Daniel Adkins MD Work Phone: [employer] 10-11-2021 23:48-0400 Respiratory rate 16 /min Daniel Adkins MD Work Phone: [employer] 10-11-2021 23:48-0400 SaO2% (BldA) [Mass fraction] 96 % Daniel Adkins MD Work Phone: [employer] 10-11-2021 23:48-0400 Systolic blood pressure 134 mm[Hg] Daniel Adkins MD Work Phone: [employer] Encounters Encounter Date Encounter Type Care Provider Facility Start: 05-20-2023 End: 05-21-2023 [facility] Start: 05-19-2023 End: 05-20-2023 [facility] Start: 05-12-2023 Telephone encounter Deepika Cox MD Work Phone: [facility] Start: 05-06-2023 End: 05-07-2023 ambulatory [facility] Start: 05-06-2023 End: 05-06-2023 Subsequent hospital visit by physician Rojas Altamirano PTA [facility] Physical [facility] Comment on above: Arrived Start: 05-05-2023 End: 05-06-2023 ambulatory [facility] Start: 04-30-2023 Refill Maty Fulton RN [facility] Start: 04-28-2023 End: 04-28-2023 Office outpatient visit 25 minutes Gil CALVO Work Phone: [facility] Comment on above: 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 (Primary Dx) Start: 04-21-2023 End: 04-22-2023 [facility] Start: 04-20-2023 End: 04-20-2023 Emergency department patient visit [facility] Start: 04-20-2023 End: 04-20-2023 [facility] Comment on above: Closed head injury, initial encounter (Primary Dx); Fall due to slipping on ice or snow, initial encounter; Acute cervical myofascial strain, initial encounter Start: 04-16-2023 ambulatory Myrtle Eryn Facility: [facility] Start: 04-07-2023 End: 04-08-2023 ambulatory [facility] Start: 03-31-2023 Refill Patricia Clay RN [facility] Start: 03-27-2023 End: 03-28-2023 ambulatory PETE SILVER [facility] Start: 03-24-2023 End: 03-25-2023 ambulatory SHAWNA BOGDAN [facility] Start: 03-19-2023 End: 03-19-2023 ambulatory GABY JUNE Not Available Start: 03-18-2023 Telephone encounter Jan [facility] Start: 03-18-2023 End: 03-18-2023 ambulatory NON STAFF [facility] [employer] Other Start: 03-18-2023 Non-patient / Non-visit MD Yo Blank Work Phone: [facility] Work Phone: Start: 03-17-2023 End: 03-17-2023 ambulatory Jan Garg Other [facility] [employer] Other Start: 03-17-2023 Telephone encounter Jan [facility] Start: 03-16-2023 Encounter for genera l adult medical examination without abnormal findings [facility] Start: 03-16-2023 End: 03-17-2023 ambulatory [facility] Start: 03-16-2023 End: 03-16-2023 ambulatory LULY ENGLISH Not Available Start: 03-10-2023 End: 03-11-2023 ambulatory SHAWNA Jin [facility] Start: 03-10-2023 End: 03-10-2023 Subsequent hospital visit by physician Tamar Silveira PT [facility] Comment on above: Arrived Start: 03-05-2023 (FCCCWMNF/U) Weight Management f/u Gayathri Adams [facility] Start: 03-05-2023 End: 03-05-2023 [facility] [employer] Other Start: 03-05-2023 Registered Recurring MD Monserrat Blank Work Phone: [facility] Work Phone: Start: 03-02-2023 End: 03-02-2023 Emergency department patient visit SIL SULLIVAN [facility] Start: 03-02-2023 End: 03-02-2023 Emergency department patient visit Sil Sullivan DO Work Phone: [facility] ED Comment on above: Constipation, unspec ified constipation type (Primary Dx) Start: 02-26-2023 End: 02-26-2023 ambulatory Jan Garg Other [employer] Other Start: 02-26-2023 Telephone encounter Jan [facility] Start: 02-20-2023 Telephone encounter Argenis Storm RN [facility] Comment on above: Medication, DME Start: 02-18-2023 End: 02-18-2023 ambulatory Jan Garg Other [employer] Other Start: 02-18-2023 Telephone encounter Jan [facility] Start: 02-10-2023 Telephone encounter Margaux Olea [facility] Start: 02-05-2023 End: 02-05-2023 ambulatory Jan Garg Other [employer] Other Start: 02-05-2023 Office outpatient visit 15 minutes Jan Garg [facility] Start: 01-15-2023 (FCCCWMNF/U) Weight Management f/u Gayathri Adams [facility] Start: 01-15-2023 End: 01-15-2023 ambulatory Gayathri Adams Other [employer] Other Start: 01-07-2023 End: 01-07-2023 ambulatory Jan Garg Other [employer] Other Start: 01-07-2023 Office outpatient visit 15 minutes Jan BUCHANAN [facility] Start: 09-25-2022 End: 01-16-2023 ambulatory CONCRETE VIBRATOR OPERATOR YUE GRANADO Facility:[facility] Start: 09-25-2022 End: 01-15-2023 Recurring YUE GRANADO [facility] Start: 09-17-2022 End: 09-17-2022 ambulatory Gayathri Angie Other [employer] Other Start: 09-17-2022 Telephone encounter Gayathri Angie [facility] Start: 08-28-2022 ([facility] RD FU) [facility] F/ U 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 Tamar Sosa [facility] Start: 08-28-2022 End: 08-28-2022 ambulatory Tamar Sosa Other [employer] Other Start: 07-29-2022 [facility] Weight Management f/u Gayathri Brooklynly [facility] Start: 07-29-2022 End: 07-29-2022 ambulatory Gayathri Brooklynly Other [employer] Other Start: 05-20-2022 [facility] Weight Management f/u Gayathri Angie [facility] Start: 05-20-2022 End: 05-20-2022 ambulatory Gayathri Brooklynly Other [employer] Other Start: 05-19-2022 End: 05-19-[address] ALICIA PRESTON . Facility:[facility] Start: 05-07-2022 End: 05-08-[address] DOCTOR ARREOLA Facility:[facility] Start: 04-09-2022 End: 04-09-2022 ambulatory Gayathrikasia Adams Other [employer] Other Start: 04-09-2022 Telephone encounter Gayathri Scally [place] [facility] Start: 04-08-2022 ([facility] WMNI) WMN Initial Provider Tamar Sosa [facility] Start: 04-08-2022 [facility] Weight Management f/u Gayathri Brooklynly [facility] Start: 04-08-2022 End: 04-08-2022 ambulatory Tamar Fitt Other [employer] Other Start: 02-26-2022 End: 02-26-2022 ambulatory Tamar Fitt Other [employer] Other Start: 02-26-2022 IBT FOR OBESITY GROU P 2-10 30M Tamar Sosa [facility] Start: 02-25-2022 [facility] Weight Management f/u Gayathri Angie [facility] Start: 02-25-2022 End: 02-25-2022 ambulatory Gayathrimarino Barahonaly Other [employer] Other Start: 02-17-2022 End: 02-18-2022 ambulatory RORY [facility] Facility:[facility] Start: 01-29-2022 End: 01-30-2022 ambulatory JOY Reis [facility] Facility:[facility] Start: 01-14-2022 [facility] Weight Management f/u Gayathri Angie [facility] Start: 01-14-2022 End: 01-14-2022 ambulatory Gayathri Brooklynly Other [employer] Other Start: 12-05-2021 End: 12-05-2021 ambulatory Gayathri Scally Other [employer] Other Start: 12-05-2021 Telephone encounter Gayathri Brooklynly [facility] Start: 12-04-2021 End: 12-04-2021 ambulatory Gayathri Brooklynly Other [employer] Other Start: 12-04-2021 Nutrition therapy Gayathri [facility] Start: 10-29-2021 End: 10-29-2021 ambulatory Yo Ditty Other [facility] [employer] Other Start: 10-29-2021 Patient encounter procedure Yo Blank [facility] Start: 10-22-2021 End: 10-22-2021 Emergency department patient visit Shawna Mcfadden Work Phone: [facility] ED Comment on above: Acute diffuse otitis externa of left ear (Primary Dx) Start: 10-11-2021 End: 10-12-2021 Emergency department patient visit Daniel Adkins MD Work Phone: [facility] ED Comment on above: Pilonidal cyst (Prim romero Dx) Start: 11-21-2016 End: 11-26-[address] [facility] Facility:[facility] Procedures Date Procedure Procedure Detail Performing Clinician Start: 04-20-2023 Ct cervical spine w/ o contrast material Precious Urbina SOFTWARE TEST DEVELOPER - CONCRETE VIBRATOR OPERATOR Work Phone: Start: 04-20-2023 Ct head/brain w/o co ntrast material Precious Octavio Urbina SOFTWARE TEST DEVELOPER - CONCRETE VIBRATOR OPERATOR Work Phone: Start: 05-02-2022 Microalbumin [Mass/v olume] in Urine by Test strip Patricia Clay RN Start: 05-02-2020 Adult depression scr eening assessment Argenis Storm RN Start: 08-30-2016 Cholecystectomy YUE PARISH Start: 01-03-2013 nasal surgery YUE ALVARENGA RS Tonsillectomy YUE GRANADO Plan of Treatment Date Care Activity Detail Author Start: 04-28-2024 Adult BMI Screening Adult BMI Screen ing [facility] Start: 04-28-2024 Tobacco Screening Tobacco Screening [facility] Start: 03-16-2024 Adult BMI Screening Adult BMI Screen ing [facility] Start: 01-30-2024 Adult BMI Screening Adult BMI Screen ing [facility] Start: 01-30-2024 Tobacco Screening Tobacco Screening [facility] Start: 06-03-2023 End: 06-03-2023 Patient encounter procedure 06/03/2023 3:30 PM EDT Appointment [facility] [address] [place] [phone] Osito Rowan [facility] Start: 06-02-2023 ambulatory Ambulatory [facility] Start: 06-02-2023 End: 06-02-2023 Patient encounter procedure [facility] Comment on above: DRY NEEDLING- dont m ove coordinates with son's appt Start: 05-23-2023 Hepatitis B vaccine (3 of 3 - Hep B Twinrix 3-dose series) Hepatitis B vaccine (3 of 3 - Hep B Twinrix 3-dose series) [facility] Start: 05-20-2023 End: 05-20-2023 Patient encounter procedure 05/20/2023 3:15 PM EDT Appointment [facility] [address] [place] [address] [phone] Rojas Altamirano PTA [facility] Start: 05-19-2023 End: 05-19-2023 Patient encounter procedure 05/19/2023 12:45 PM EDT Appointment [facility] [address] [place] [address] [phone] Rebecca Skinner PT DRY NEEDLING- dont move coordinates with son's apptDRY NEEDLING [facility] Comment on above: DRY NEEDLING- dont m ove coordinates with son's apptDRY NEEDLING Start: 05-05-2023 End: 05-05-2023 Patient encounter procedure [facility] Comment on above: DRY NEEDLING DRY NEEDLING- dont m ove coordinates with son's appt Start: 05-03-2023 Urine screening for protein Urine Microalbumin [facility] Start: 04-28-2023 End: 04-28-2023 Patient encounter procedure 04/28/2023 10:45 AM EST Office Visit [facility] [address] [place] [id number] [place]ba, [place] [address] [place] [address] [facility] Start: 04-21-2023 End: 04-21-2023 Patient encounter procedure [facility] Comment on above: DRY NEEDLING DRY NEEDLING- jd gibson coordinates with son's appt Start: 04-07-2023 End: 04-07-2023 Patient encounter procedure 04/07/2023 2:15 PM EST Appointment [facility] [address] [place] [phone] Rebecca Skinner, PT DRY NEEDLING [facility] Comment on above: DRY NEEDLING Start: 03-27-2023 End: 03-27-2023 Admission to same day surgery center 03/27/2023 1:27 PM EST - 03/27/2023 1:33 PM EST Surgery [facility] [address] [place] [phone] Pete Silver MD [address] [place], [place] [phone] INJECTION BLOCK SACROILIAC JOINT [31305 (CPT )] [facility] Comment on above: INJECTION BLOCK SACR OILIAC JOINT [91054 (CPT )] Start: 03-27-2023 End: 03-27-2023 Inject si joint arthrgrphy&/anes/stero id w/monika INJECTION BLOCK SACROILIAC JOINT Disorder of sacrum 03/27/2023 1:27 PM EST [facility] Start: 03-27-2023 Subsequent hospital visit by physician 03/27/2023 1:27 PM EST Hospital Encounter [facility] [address] [place] [phone] Pete Silver MD [address] [place], [place] [phone] [facility] Start: 03-24-2023 End: 03-24-2023 Patient encounter procedure 03/24/2023 2:15 PM EST Appointment [facility] [address] [place] [address] Rebecca Skinner, [place]IV[place] DRY NEEDLING [facility] Physical Therapy Comment on above: DRY NEEDLING Start: 03-19-2023 [facility] Start: 03-16-2023 End: 03-16-2023 Patient encounter procedure 03/16/2023 11:45 AM EST Appointment [facility] [address] [place] [address] [facility] Start: 03-10-2023 End: 03-10-2023 Patient encounter procedure 03/10/2023 2:30 PM EST Appointment [facility] [address] [place] [phone] Rebecca Skinner, [place] [facility] Start: 09-30-2022 Influenza vaccination Flu vaccine (# 1) [facility] Start: 10-31-2021 Influenza vaccination Flu vaccine (# 1) [facility] Start: 09-03-2021 DTaP,Tdap and Td Vaccines (1 - Tdap) DTaP,Tdap and Td Vaccines (1 - Tdap) [facility] Start: 09-03-2021 DTaP/Tdap/Td vaccine (1 - Tdap) DTaP/Tdap/Td vaccine (1 - Tdap) [facility] Start: 05-02-2021 Depression Screening Depression Scre ening [facility] Start: 2020 Lipid panel Lipids [facility] Start: 01-04-2020 Diabetic foot examination Diabetic Foot Exam [facility] Start: 09-25-2015 Diabetes screen Diabetes screen [facility] Adult BMI Follow Up Plan [facility] Start: 1998 Hepatitis C screening Hepatitis C sc reen [facility] Start: 09-25-1995 HIV screening HIV screen [facility] Start: 1992 Depression Screen Depression Screen [facility] Start: 1992 Depression Screening Depression Scre ening [facility] Start: 1981 Varicella vaccine (1 of 2 - 2-dose childhood series) Varicella vaccine (1 of 2 - 2-dose childhood series) [facility] Start: 03-27-1981 COVID-19 Vaccine (#1) COVID-19 Vacci ne (#1) [facility] Start: 1980 Glaucoma screening Diabetic Op hthalmology Exam [facility] Start: 1980 Hepatitis B vaccine (1 of 3 - 3-dose series) Hepatitis B vaccine (1 of 3 - 3-dose series) [facility] Inject si joint arthrgrphy&/anes/stero id w/monika INJECTION BLOCK SACROILIAC JOINT Disorder of sacrum [facility] Njx dx/ther agt pvrt facet jt lmbr/sac 1 level INJECTION BLOCK NERVE MEDIAL BRANCH Lumbosacral spondylosis without myelopathy [facility] Immunizations Immunization Date Immunization Notes Care Provider Saundra donnelly 12-19-2018 influenza, injectabl e, quadrivalent, preservative free Argenis Storm RN [facility] 12-02-2017 influenza, injectabl e, quadrivalent, preservative free Argenis Storm RN [facility] 12-02-2017 pneumococcal conjuga te vaccine, 13 valent Argenis Storm RN [facility] 10-10-2016 influenza virus vacc ine, unspecified formulation Argenis Storm RN [facility] 12-19-2013 influenza virus vacc ine, live, attenuated, for intranasal use Argenis Storm RN [facility] 12-03-2012 influenza virus vacc ine, whole virus Argenis Storm RN [facility] 12-29-2011 influenza virus vacc ine, whole virus Argenis Storm RN [facility] 12-23-2010 influenza virus vacc ine, whole virus Argenis Storm RN [facility] 12-18-2008 influenza virus vacc ine, whole virus Argenis Dotty ADHIKARI [facility] Payers Date Payer Category Payer Self-pay [id number] 2002 Medicaid [employer] [employer] [id number] 2002-Present [phone] [address] [place] [address] [id number] 1980 Unknown [id number] 2.16.840.1.030532.3.579.2.593 1980 Unknown [id number] 2.16.840.1.377480.3.579.2.593 1980 Unknown [id number] 2.16.840.1.954737.3.579.2.593 1980 Unknown [id number] 2.16.840.1.144282.3.579.2.593 1980 Unknown [id number] 2.16.840.1.842618.3.579.2.727 1980 Unknown [id number] 2.16.840.1.349609.3.579.2.1259 1980 Unknown [id number] 2.16.840.1.714812.3.579.2.1259 1980 Unknown [id number] 2.16.840.1.256240.3.579.2.1286 1980 Unknown [id number] 2.16.840.1.482243.3.579.2.128 1980 Unknown [id number] 2.16.840.1.481574.3.579.2.1286 1980 Unknown [id number] 2.16.840.1.966800.3.579.2.128 1980 Unknown [id number] 2.16.840.1.246100.3.579.2.173 1980 Unknown [id number] 2.16.840.1.882974.3.579.2.173 1980 Unknown [id number] 2.16.840.1.296222.3.579.2.173 1980 Unknown [id number] 2.16.840.1.290127.3.579.2. 1980 Unknown [id number] 2.16.840.1.520041.3.579.2.173 1980 Unknown [id number] 2.16.840.1.573871.3.579.2. 1980 Unknown [id number] 2.16.840.1.738116.3.579.2.173 1980 Unknown [id number] 2.16.840.1.331265.3.579.2. 1980 Unknown [id number] 2.16.840.1.504299.3.579.2.173 1980 Unknown [id number] 1980 Unknown [id number] 1959 Medicaid [id number] Unknown [id number] Unknown [id number] Unknown [id number] Social History Date Type Detail Facility Start: 09-02-2017 End: 01-28-2022 Tobacco smoking status AKIS Never smoked tobacco [facility] Start: 09-02-2017 End: 01-28-2022 Tobacco use and exposure Smokeless tobacco non-user [facility] Work Phone: Start: 10-11-2021 End: 04-28-2023 Alcohol intake Current non-drinker of alcohol (finding) [facility] Phone: Start: 1980 Sex Assigned At Not on file [facility] Phone: Start: 10-01-2021 End: 10-22-2021 Exposure to SARS-CoV-2 (event) Not sure [facility] Phone: Start: 03-13-2020 End: 10-11-2021 Sex Assigned At [facility] Tobacco smoking status Never [facility] Start: 03-13-2020 End: 10-11-2021 [facility] Start: 1980 Sex Assigned At Female [facility] Medical Equipment Procedure Code Equipment Code Equipment Origin al Text Equipment Identifier Dates [place] Sut 5.5mm 2 Ft Crkscr Fbrwr Shldr 3 Pk 14.7mm Strl Ea=Bill-Only Rpl [id number] - [id number] Start: 05-15-2022 Use to test BLOO D SUGAR TWICE DAILY [id number] Start: 05-28-2020 Use to test BLOO D SUGAR TWICE DAILY, Diagnosis: E11.9 [id number] Start: 03-08-2020 Clinical Notes 10-22-2021 to 05-12-2023 Telephone Encounter - Ifrah Desouza - 05/12/2023 10:56 AM EDTTelephone Encounter - Ifrah Desouza - 05/12/2023 10:56 AM EDTTelephone Encounter - Maty Fulton RN - 04/30/2023 1:28 PM ESTAttachments Note Date & Type Note Facility 05-12-2023 Miscellaneous Notes Spoke with patient and scheduled with Dr. Cox 06/01. Patient voiced understanding of appointment details. Patient was offered sooner dates but declined per her availability. documented in this encounter [facility] 05-12-2023 Telephone encounter Note Spoke with patient and scheduled with Dr. Cox 06/01. Patient voiced understanding of appointment details. Patient was offered sooner dates but declined per her availability. [facility] 04-30-2023 Miscellaneous Notes Last Office Visit: 04/28/2023 Next Office Visit: Visit date not found Last Urine Drug Screen: No results found for: BENZOSCRN OARRS appropriate documented in this encounter [facility] 04-30-2023 Telephone encounter Note Last Office Visit: 04/28/2023 Next Office Visit: Visit date not found Last Urine Drug Screen: No results found for: BENZOSCRN OARRS appropriate [facility] 04-28-2023 History of Presen t illness Narrative [facility] [address] [place] [address] Patient: Karma Banegas Sex: female : 1980 Age: 42 y.o. PCP: SHAWNA MCFADDEN, DO 04/28/2023 Karma Banegas is here for a(n) post procedure follow up 03/27/2023 left sacroiliac injection with 100% relief (no pain) x 3 hours. Pre-procedural pain was reported as 8/10. Patient was started on Cymbalta last month. Patient feels the Cymbalta has helped decrease the symptoms felt in her hands and arms. Chief Complaint Patient presents with Back Pain Neck Pain HPI: PT/HEP for Cervical spine (09/2022 last visit for 11/05/22) at [facility] with no relief Back: 10/15/18 L4/5 WU offered 90% relief for over 1 year 04/23/21 L4/5 WU w/ 80% relief 03/27/2023 left sacroiliac injection with 100% relief with post proc pain 0/10 x 3 hours. Pre-procedural pain was reported as 8/10 Neck: 01/09/23 C 5,6 NRI with 50-60% continued relief. Back Pain This is a chronic problem. The current episode started more than 1 year ago (1998). The problem occurs constantly. The problem is unchanged (patient had 3 hours of relief post Left SI injection). The pain is present in the lumbar spine, sacro-iliac and gluteal (left glute). The quality of the pain is described as aching, burning, cramping, shooting and stabbing. Radiates to: Left glute, hip, thigh, and calf. The pain is at a severity of 7/10. The pain is severe. The pain is The same all the time. The symptoms are aggravated by bending, sitting and standing. Stiffness is present All day. Associated symptoms include headaches (2-3x monthly), numbness (fingertip left finger, posterior aspect of LLE) and tingling (fingertip left finger, posterior aspect of LLE). Pertinent negatives include no bladder incontinence, bowel incontinence, chest pain, leg pain (LLE) or weakness. (LLE lateral to knee with pain, n/t) Risk factors include obesity, poor posture and sedentary lifestyle. She has tried heat and ice (PT 2016, previous injections, HEP, NSAID (ibuprofen, naproxen, robaxin), muscle relaxant (flexeril) w/slight relief. Percocet, norco, with moderate relief. Elavil, cymbalta w/ slight relief. chiropractic with mod. relief; aqua therapy w/ ST relief, mobic) for the symptoms. The treatment provided mild relief. Neck Pain This is a chronic problem. The current episode started more than 1 month ago. The problem occurs constantly. The problem has been unchanged. Associated with: Shoulder injury. The pain is present in the midline and left side (into right shoulder , pain down left side to under left shoulder blade). The quality of the pain is described as aching, burning, cramping, stabbing and shooting. The pain is at a severity of 8/10. The pain is severe. The symptoms are aggravated by position (turning). The pain is Same all the time. Stiffness is present All day. Associated symptoms include headaches (2-3x monthly), numbness (fingertip left finger, posterior aspect of LLE) and tingling (fingertip left finger, posterior aspect of LLE). Pertinent negatives include no chest pain, leg pain (LLE) or weakness. She has tried chiropractic manipulation, heat, ice, muscle relaxants and NSAIDs (naproxen, ibuprofen, mobic, cymbalta, gabapentin min relief) for the symptoms. The treatment provided no relief. The effect of pain on patient's ADLS: Moderate Impairment. Past Medical History: Diagnosis Date Anxiety Asthma Back pain Bipolar 1 disorder ([facility]) Breast disorder enlarged lymph nodes in both breast Carpal tunnel syndrome Chronic pain disorder Deep vein thrombosis ([facility]) blood clot in left arm Dental disease Depression Diverticulitis Diverticulitis of colon GERD (gastroesophageal reflux disease) Headache Hyperlipidemia Insomnia Joint pain Kidney stone Low back pain Neck pain Numbness Numbness and tingling Obesity Osteoarthritis Prolonged emergence from general anesthesia has had to stay overnight before due to prolonged emergence PTSD (post-traumatic stress disorder) Sleep apnea does not wear a machine at night 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 ([facility]) 11/10/2017 Visual impairment Past Surgical History: Procedure Laterality Date ANKLE SURGERY Left x2 ARTHROSCOPY SHOULDER WITH ROTATOR CUFF REPAIR Right 05/15/2022 Performed by Chepe Ingram MD at [facility] DEBRIDEMENT Right 05/15/2022 Performed by Chepe Ingram MD at [facility] DECOMPRESSION OF SUBACROMIAL SPACE WITH PARTIAL ACROMIOPLASTY Right 05/15/2022 Performed by Chepe Ingram MD at [facility] INJECTION BLOCK EPIDURAL STEROID LUMBAR/SACRAL: L 4/5 WU N/A 04/22/2021 Performed by Pete Silver MD at [facility] BLOCK SACROILIAC JOINT Left 03/27/2023 Performed by Pete Silver MD at [facility] CERVICAL OR THORACIC EPIDURAL BLOCK WITH STEROIDS: C67 WU N/A 01/29/2018 Performed by Pete Silver MD at [facility] IN[facility]CTION LUMBAR OR SACRAL EPIDURAL BLOCK WITH STEROIDS: L45 WU N/A 10/15/2018 Performed by Pete Silver MD at [facility] INJECTION MEDIAL BRANCH NERVE BLOCK: bilat L45 51 Bilateral 07/30/2018 Performed by Pete Silver MD at [facility] INJECTION SPINE TRANSFORAMINAL: left C 5,6 Nroot Left 01/09/2023 Performed by Pete Silver MD at [facility] LAPAROSCOPIC CHOLECYSTECTOMY N/A 09/16/2016 Performed by Juan Ramon Jean MD at [facility] LIVER BIOPSY EMA PROCEDURE Right 05/15/2022 Performed by Chepe Ingram MD at [facility] NASAL SURGERY REPAIR HERNIA UMBILICAL 09/16/2016 Performed by Juan Ramon Jean MD at [facility] TONSILLECTOMY Allergies Allergen Reactions Metformin Severe hypoglycemia Celexa [Citalopram] Keflex [Cephalexin] Poison [place] Extract Family History Problem Relation Age of Onset Diabetes Mother Thyroid Issues Mother Bleeding Disorder Father Thyroid Issues Father Diabetes Father Breast cancer Maternal Grandmother Stroke Maternal Grandfather Stroke Paternal Grandmother Anesthesia problems Neg Hx Social History Socioeconomic History Marital status: Spouse name: Not on file Number of children: Not on file Years of education: Not on file Highest education level: Not on file Occupational History Not on file Tobacco Use Smoking status: Never Smokeless tobacco: Never Vaping Use Vaping Use: Never used Substance and Sexual Activity Alcohol use: No Drug use: No Sexual activity: Defer control/protection: Implant Other Topics Concern Not on file Social History Narrative Not on file Social Determinants of Health Financial Resource Strain: Not on file Food Insecurity: No Food Insecurity (04/28/2023) Hunger Screening Food Insecurity - Worry: Never True Food Insecurity - Inability: Never True Recent Concern: Food Insecurity - Food Insecurity Present (01/29/2023) Hunger Screening Food Insecurity - Worry: Sometimes True Food Insecurity - Inability: Sometimes True Transportation Needs: Not on file Physical Activity: Not on file Stress: Not on file Social Connections: Not on file Interpersonal Safety: Not on file Housing Instability: Not on file Review of Systems HENT: Negative. Respiratory: Negative for cough and shortness of breath. Cardiovascular: Negative for chest pain. Gastrointestinal: Positive for constipation. Negative for bowel incontinence and diarrhea. Genitourinary: Negative for bladder incontinence, difficulty urinating and frequency. Musculoskeletal: Positive for back pain and neck pain. Skin: Negative. Neurological: Positive for tingling (fingertip left finger, posterior aspect of LLE), numbness (fingertip left finger, posterior aspect of LLE) and headaches (2-3x monthly). Negative for weakness. Psychiatric/Behavioral: Negative for confusion. The patient is not nervous/anxious. Vital Signs: BP 122/82 (BP Site: Left Arm, BP Postition: Sitting) Pulse 87 Resp 16 Ht 160 cm (5' 3 ) Wt 92.5 kg (204 lb) SpO2 97% BMI 36.14 kg/m Physical Exam: GENERAL - Healthy patient that appears stated age. HEENT - Normocephalic / Atraumatic, Extraoccular movements intact, trachea midline, thyroid within normal limits. CV - pulse regular, Warm extremities with appropriate color of nailbeds. RESP - No obvious wheezing, No Shortness of Breath, No overexertion response to exam maneuvers. COORDINATION - remains intact. PSYCH - Alert and Oriented x4, Attentive and appropriate, constitutionally normal, displays normal mood and affect per situation, answered questions appropriately during examination, demonstrated appropriate attention during discussion, demonstrated appropriate cognitive reasoning and understanding of the medical condition by asking appropriate questions regarding the diagnosis and risks/benefits/alternatives of treatment modalities. No obvious deficits in memory, reasoning, or intellect. Lumbar: SKIN - No rashes or bruising in the area of the patient s pain. LYMPH NODES - demonstrate no obvious enlargement. EXTREMITIES - Lower extremities are warm, with minimal edema and palpable pulses. Tenderness to palpation noted in the left lumbar spine and paraspinal musculature. Pain is elicited with flexion, extension, and lateral rotation of the left lumbar spine. Range of motion is diminished with these motions due to pain. Facet palpation is noted to be painful and facet loading maneuvers elicit pain that is concordant with the patient s normal pain complaints. Some muscle spasm is noted in the overlying musculature. STRENGTH - noted to be 5 out of 5 all muscle groups bilateral lower extremities including muscles involving hip flexion and abduction, knee flexion and extension, as well as foot dorsiflexion and plantarflexion. No notable atrophy, fasciculations or spasm. SENSORY - No notable sensory deficits in the bilateral lower extremities to touch or pinprick in all dermatomal distributions. Straight Leg Raise is negative bilaterally. Gait is normal. Assessment/Treatment Plan: Karma was seen today for back pain and neck pain. Diagnoses and all orders for this visit: Lumbosacral spondylosis without myelopathy - Case request operating room: INJECTION BLOCK NERVE MEDIAL BRANCH: left L45 51 Continue Cymbalta 30 mg daily Left L4/5, 5/1 Facet Injection/Medial Branch Block - under fluoroscopy It is hopeful that the described procedure will provide symptomatic pain relief. It is felt to be medically necessary noting that the patient has tried and failed more conservative modalities of therapy and this is the next most appropriate step. The procedure was described in detail to the patient as well as the potential benefits of pain reduction alongside risks of the procedure and alternatives. Risks were described as including, but not limited to bleeding, infection, nerve damage, spinal cord injury, paralysis, stroke, dural puncture headache, and medication reaction. The patient expressed understanding regarding the risks and benefits and wishes to proceed. Diagnostic facet injections and medial branch blocks should provide information to confirm that the noted facet arthropathy is the patient s most significant pain generator. If this provides significant but only temporary pain relief, the patient may in the future be a candidate for radiofrequency denervation of the facet joints to provide pain relief for approximately 1 year. Follow up 2 weeks after procedure The medications I have prescribed have been reviewed for medication interactions/contraindications and/or for upcoming procedures: continue current medication regimen without any changes. DISCUSSION: Treatment options discussed with patient and all questions answered to patient's satisfaction. Discussed the rules and regulations surrounding prescription of opioids and compliance at length. Failure to follow the rules and regulation will result in tapering and discontinuation of medications if applicable. The patient has been instructed as to the type of medication prescribed along with directions for use. Potential side effects have been discussed, along with risks and benefits of taking this medication. (S)he was instructed as to what to do if (s)he experiences side effects, including when to discontinue the medication. (S)he was advised to call this office in this event. Also discussed at length safety and security of RX and medications. Prescribed medication that requires intensive monitoring for toxicity We do not currently prescribe any controlled substance from this practice. Treatment plans discussed but not opted for at this time: Lumbar RFA. Patient would like to proceed with the current outlined treatment plan before moving forward with any other options. It appears that the patient's previous pain is under adequate control with the previous procedure. At this point, we will continue to monitor these symptoms and turn our immediate attention to the more painful complaint that was discussed today. It does appear that is it the new primary pain complaint and the patient would likely benefit from a procedure as treatment for this complaint as well. The spine model was demonstrated and MRI was reviewed and used to explain the condition. Chronic conditions not treated during this visit that affected my overall medical decision making: Comorbidity- Obesity The patient does have a comorbid condition of obesity. This will be taken into account in that obesity will contribute to certain pain conditions. It can contribute to pain from degenerative disc disease as well as osteoarthritis of the joints. Many neuropathic symptoms are also amplified due to axial spine loading. Special benefits will also need to be given to procedures. Many procedures are technically more difficult in the light of severe obesity. I will also consider the possibility of undiagnosed obstructive sleep apnea (which often accompanies obesity) when prescribing any narcotic medications. I will weigh the risks and benefits and fully discuss them with the patient for these reasons. Comorbidity- Diabetes The patient has a history of diabetes mellitus currently managed with medications. This will need to be considered prior to any procedure that would require the injection of steroid in that the patient may experience a transient increase in glucose as a result. Additional consideration will need to be given to timing the procedure early in the morning in that the patient will need to be fasting prior to the administration of anesthesia. Every effort will be made to perform the procedure as a 1st case due to this condition. And the patient will be instructed to hold their diabetic medications on that morning. If necessary, a blood glucose test can also be performed that morning. The risks/ benefits/ and alternatives will be weighed and explained to the patient prior to any procedure. Comorbidity- Anxiety The patient describes a significant issue with anxiety. Although treatment is helpful with this regard, the patient is likely need special accommodation due to this condition. For this reason, necessary procedures will likely need to be performed under sedation to decrease procedural anxiety. Comorbidity- Depression The patient has an ongoing issue with depression and currently feels these symptoms are under control and further feels that appropriate pain management would also help these symptoms. The patient is optimistic about the treatment plan we have laid out. We will continue to monitor these symptoms and remain cogniscent that they may affect the patients perceived improvement from the treatment and willingness to pursue further treatment. At this time the patient appears to be mentally and emotionally stable to undergo procedural and medical therapy. If any warning signs become present, I may refer the patient to a mental health professional for further evaluation. OARRS: Reviewed. Scribe Statement: Scribed for and in the presence of UMESH HODGE by Peg Conrad CNA. Provider Statement: I, UMESH HODGE, personally performed the services described in the documentation, as scribed by Peg Conrad CNA in my presence, and it is both accurate and complete. Peg Conrad CNA 04/28/23 1207 UMESH Hodge 04/30/23 1141 documented in this encounter [facility] 04-28-2023 Instructions Peg Conrad CNA - 04/28/2023 10:45 AM EST Facet Injection / Medial Branch Block (MBB) / Sacroiliac (SI) Joint Injection A facet injection and sacroiliac joint injection are injections of local anesthetic and steroid into a joint in the spine. A medial branch block is similar, but the medication is placed outside the joint space near the nerve that supplies the joint called the medial branch (steroid may or may not be used). You may require multiple injections depending upon how many joints are involved. How Long Will This Procedure Last? The extent and duration of pain relief may depend on the amount of inflammation and how many areas are involved. Other coexisting factors may be responsible for your pain. If your pain goes away for a short time, but then returns, you may be a candidate for radiofrequency ablation (RFA). Activity Be active. Attempt activities and movements that typically cause pain to see if it feels better while doing them. We will give you a pain diary. Please fill this out as directed by your nurse in pre-op. This will help your doctor determine the effectiveness of the injection, and how to proceed. Bring the pain diary with you to your follow-up appointment. Medications You should not take your pain medications for 4-6 hours before or after the injection in order to properly diagnose if the injection provides adequate relief. Resume your routine medications after your procedure. You may resume blood thinners per your regular schedule after the procedure. If you received sedation: If you received sedation for your procedure, you may feel sleepy or not yourself for several hours today. For the next 24 hours avoid activities that requires alertness or coordination. This includes: Driving or operating heavy machinery Using power tools Consuming alcohol Do not make important or complex decisions or sign legal documents in the next 24 hours. Other Instructions: If you feel severe pain at the injection site with swelling and redness, increased leg weakness, a fever of 101 or higher, headache (or worsening headache), changes in vision or urinary retention: Please call the office at , or have someone take you to the nearest emergency room. Tell the emergency room staff that you recently had a spine injection. A doctor must evaluate you for bleeding and injection complications. If you lose control over bowel, bladder, or legs: Go to the nearest emergency room. documented in this encounter [facility] 04-20-2023 Hospital Discharg e instructions Precious Urbina APRN - CNP - 04/20/2023 1:50 PM EST Increase fluid Tylenol Motrin for cough Continue home medications The following attachments cannot be sent through Care Everywhere.Head Injury: Closed: General Info (Haitian)Cervical Strain (Haitian)documented in this encounter [facility] 03-31-2023 Miscellaneous Notes Patient calls today and states she has [...] medications prescribed to someone other than her. Water Resources Technical Officer reiterated this to patient. Patient's pharmacy was confirmed with her. Order pended for review and signature. documented in this encounter [facility] 03-31-2023 Telephone encounter Note Patient calls today and states she [...] are prescribed [facility] someone other than her. [facility] Telephone encounter Note Is she still taking prozac? What dosage? Any other antidepressants? [facility]-31-2023 Telephone encounter Note Call placed to patient to confirm whether or not she is taking Prozac or other antidepressants. Patient states she is taking 40 mg Prozac daily. That is the only antidepressant that she takes. She is prescribed Latuda and Lamictal to treat Bipolar. [facility] 03-31-2023 Telephone encounter Note Can try cymbalta 30mg once daily [facility] [employer] 03-31-2023 Telephone encounter Note Call placed to patient to inform her of provider's response. Patient is also educated not to take medications that are prescribed to someone other than her. Patient voices that she is aware that she should not be taking medications prescribed to someone other than her. Water Resources Technical Officer reiterated this to patient. Patient's pharmacy was confirmed with her. Order pended for review and signature. [facility] [employer] 03-05-2023 Evaluation note Encounter Date Diagnosis Assessment [...] was counseling done by myself, Rhina ROBERTSON. [employer] Other 01-01-2024 Hospital Discharge instructions* Discharge Instructions* Sil Sullivan DO - 03/02/2023 7:49 PM EST Please follow-up with your GI doctor, trial enema at home, return to the ER for worsening abdominalpain, inability to pass gas, or nausea, vomiting * Attachments The following attachments cannot be sent through Care Everywhere. * Constipation (Haitian) [facility] M[facility]ellaneous Notes* Telephone Encounter - Argenis [...] when she was under his care in [place]. She is currently taking Meloxicam that helps [...] going forward. * Telephone Encounter - UMESH Hodge - 02/20/2023 10:04 AM EST No Rx for tramadol. I have never written prescription for bra so I would not know how to proceed with anything like that. * Telephone Encounter - Argenis Storm RN - 02/20/2023 10:04 AM EST Patient aware of response. She states whatever . [facility] Telephone encounter Note* Telephone Encounter - Argenis [...] when she was under his care in [place]. She is currently taking Meloxicam that helps [...] add Dr. Silver on the note. [facility]. [place] [id number] Telephone encounter Note* Telephone Encounter - Pete Silver MD - 02/20/2023 10:04 AM EST Discussed with nurse, I agree with Fartun's treatment plan going forward. [facility]12-22-2023 Telephone encounter Note* Telephone Encounter - UMESH Hodge - 02/20/2023 10:04 AM EST No Rx for tramadol. I have never written prescription for bra so I would not know how to proceed with anything like that. [facility]12-22-2023 Telephone encounter Note* Telephone Encounter - Argenis Storm RN - 02/20/2023 10:04 AM EST Patient aware of response. She states whatever . [facility]12-20-2023 Evaluation note* Encounter Date Diagnosis Assessment Notes Treatment Notes Treatment Clinical Notes Jan, Constipation, unspecified constipation type (ICD-10 - K59.00) Jan, Constipation (ICD-10 - K59.00) [facility] Other 12-12-2023 Miscellaneous Notes* Telephone Encounter - [...] sacroiliac joint. * Telephone Encounter - UMESH Hodge - 02/10/2023 8:18 AM EST Can appeal: [...] f/u appt documented [facility] Telephone encounter Note* Telephone Encounter - Margaux [...] now related to sacroiliac joint. [facility] Telephone encounter Note* Telephone Encounter - UMESH Hodge - 02/10/2023 8:18 AM EST Can appeal: [...] sufficient reason to deny the current request. [employer] [id number] Telephone encounter Note* Telephone Encounter - Alfredito William - 02/10/2023 8:18 AM EST GOT APPROVAL [employer] [id number] Telephone encounter Note* Telephone Encounter - Maty Fulton RN - 02/10/2023 8:18 AM EST Pt is scheduled 03/27 for procedure and has f/u appt [facility]12-07-2023 Evaluation note* Encounter Date Diagnosis Assessment Notes [...] R10.9) Jan, Rectal bleed (ICD-10 - K62.5) [employer] Other 11-16-2023 Evaluation note* Encounter Date Diagnosis [...] was counseling done by myself, Rhina ROBERTSON. [employer] Other 11-08-2023 Evaluation note* Encounter Date Diagnosis [...] HAVE PATIENT START DOCUSATE 3 CAPSULES DAILY. [employer] Other 06-29-2023 Evaluation note* Encounter Date Diagnosis Assessment Notes Treatment Notes Treatment Clinical Notes Jul, Obesity (ICD-10 - E66.9) Jul, BMI 34.0-34.9,adult (ICD-10 - Z68.34) Jul, Other Summary of Visi t: (A) discussed continuing to work on small goals until stress decreases and she has the energy to increase goals (B) discussed healhtier choices at [employer]- food blog reviewed (C) reviewed food storage tips for keeping produce fresh longer Patient set the following goals: - NEW: continue to choose sugar free beverages- not reviewed [employer] Other 05-30-2023 Evaluation note* Encounter Date Diagnosis [...] was counseling done by myself, Rhina ROBERTSON. [employer] Other 03-21-2023 Evaluation note* Encounter Date Diagnosis [...] was counseling done by myself, Rhina ROBERTSON. [employer] Other 02-07-2023 Evaluation note* Encounter Date Diagnosis [...] set the following goals: not reviewed today [employer] Other 02-07-2023 Evaluation note* Encounter Date Diagnosis [...] was counseling done by myself, Rhina ROBERTSON. [employer] Other 12-28-2022 Evaluation note* Encounter Date Diagnosis [...] patient set personal goal using given handout. [employer] Other 12-27-2022 Evaluation note* Encounter Date Diagnosis [...] was counseling done by myself, Rhina ROBERTSON. [employer] Other 12-01-2022 NotePROCEDURE: XR ANKLE LT MIN [...] Electronically authenticated by: ONEL CLARK Date: 2022-01-29 22:30[facility]12-01-2022 NotePROCEDURE: XR ANKLE LT MIN 3 V, [...] Electronically authenticated by: ONEL CLARK Date: 2022-01-29 22:30[facility]11-15-2022 Evaluation note* Encounter Date Diagnosis Assessment Notes [...] was counseling done by myself, Rhina ROBERTSON. [employer] Other 10-05-2022 Evaluation note* Encounter Date Diagnosis [...] was counseling done by myself, Rhina ROBERTSON. [facility] Other 08-30-2022 Evaluation note* Encounter Date Diagnosis Assessment Notes Treatment Notes Treatment Clinical Notes Sep, Fatty liver (ICD-10 - K76.0) ENCOURAGED WEIGHT LOSS Sep, Obesity (BMI 30-39.9) (ICD-10 - E66.9) [employer] Other 08-23-2022 Hospital Discharge instructions* Discharge Instructions* Stanley Almonte PA-C - 10/22/2021 2:03 PM EDT Follow-up with primary care doctor 7 to 10 days for reevaluation. Take Motrin 800 mg as directed with food. Start eardrops left ear as directed. Promptly return to emergency department for new, changing or worsening of symptoms or other concerns. [facility] [employer] Work Phone: evaluation + Plan note No data available for this section [facility]* Diagnosis Pilonidal cyst- Primary Pilonidal cyst without mention of abscess documented in this encounter [facility] [employer] Work Phone: evaluation note* Diagnosis Acute diffuse otitis externa of left ear- Primary documented in this encounter [facility] [employer] Work Phone: evaluation noteNo InformationNort [facility] Other Evaluation note* Diagnosis Constipation, unspecified constipation type- Primary documented in this encounter [facility] [employer] [facility] noteNo assessment information available [facility] Work Phone: Evaluation note* Diagnosis Closed head injury, initial encounter- Primary Fall due to slipping on ice or snow, initial encounter Acute cervical myofascial strain, initial encounter documented in this encounter [facility]ELL[facility] note* Diagnosis Lumbosacral spondylosis without myelopathy- Primary documented in this encounter [facility] N[facility]ative - Reported* Type Description Date Medical History PTSD Medical History DIVERTICULITOUS Surgical History 2 BACK INJECTIONS 2014 Surgical History LEFT ANKLE 2002 Surgical History CHOLECYSTECTOMY Hospitalization History SEE ABOVE [employer] Other [facility] general Narrative - Reported* Type Description Date Medical History PTSD Medical History DIVERTICULITOUS Medical History bipolar Medical History ADHD Surgical History 2 BACK INJECTIONS 2014 Surgical History LEFT ANKLE 2002 Surgical History CHOLECYSTECTOMY Surgical History nasal surgery Hospitalization History SEE ABOVE [employer] Other Hisysys general Narrative - Reported* Type Description Date Medical History PTSD Medical History DIVERTICULITOUS Medical History bipolar Medical History ADHD Surgical History 2 BACK INJECTIONS 2014 Surgical History LEFT ANKLE 2002 Surgical History CHOLECYSTECTOMY Surgical History nasal surgery Surgical History right Rotator surgery 05-15-22 Hospitalization History SEE ABOVE [employer] Other Hisyvts general Narrative - Reported* Type Description Date Medical History PTSD Medical History DIVERTICULITOUS Medical History bipolar Medical History ADHD Medical History rotator cuff tear Surgical History 2 BACK INJECTIONS 2014 Surgical History LEFT ANKLE 2002 Surgical History CHOLECYSTECTOMY Surgical History nasal surgery Surgical History right Rotator surgery 05-15-22 Hospitalization History SEE ABOVE [employer] Other history general Narrative - Reported* Type Description Date Medical History PTSD Medical History DIVERTICULITOUS Medical History bipolar Medical History ADHD Medical History rotator cuff tear Surgical History 2 BACK INJECTIONS 2014 Surgical History LEFT ANKLE 2002 Surgical History CHOLECYSTECTOMY Surgical History nasal surgery Surgical History right Rotator surgery 05-15-22 Surgical History Neck injections/root burnt 12/31 Hospitalization History SEE ABOVE [employer] Other Hislpsc general Narrative - Reported* Type Description Date Medical History PTSD Medical History DIVERTICULITOUS Medical History bipolar Medical History ADHD Medical History rotator cuff tear Surgical History 2 BACK INJECTIONS 2014 Surgical History LEFT ANKLE 2002 Surgical History CHOLECYSTECTOMY Surgical History nasal surgery Surgical History right Rotator surgery 05-15-22 Surgical History Neck injections/root burnt 12/31 Hospitalization History SEE ABOVE Hospitalization History [facility]- c onstipation 03-02-2023 [employer] Other Hospital Discharge instructions* Attachments The following attachments cannot be sent through Care Everywhere. * Pilonidal Abscess (Haitian) documented in this encounterBON [employer] Work Phone: Hospital Discharge instructions No data available for this section [facility] HospitalInstructionsNot on filedocumented in this encounter [facility]Not on filedocumented in this encounter [facility]Not on filedocumented in this encounter [facility]ructionsNot on filedocumented in this encounter [facility] System[facility] note No data available for this section [facility] Summary Purpose Family History No Family [...] Time Advance Directives No July 18 8:24am Latest Code Status on File Code Status Date Activated Date Inactivated Comments Full Code 09/16/2016 3:19 PM 09/17/2016 8:38 PM Reason for Referral Reason *FU 11/05 Please [...] PATIENT REFERRAL FORM TO WEIGHT LOSS CLINIC. Specialty Diagnoses / Procedures Referred By Karla cuadra Referred To Contact Diagnoses Lumbosacral spondylosis without myelopathy Procedures Case request operating room: INJECTION BLOCK NERVE MEDIAL BRANCH: left [address], UMESH [address], [address] [place] [address] Referral ID Status Reason Start Date Expiration Date V isits Requested Visits Authorized [id number] Pending Review 04/28/2023 04/27/2024 1 1 Chief Complaint and Reason for Visit Chief Complaint Obesity Abdominal Pain, Rectal Bleeding Additional Source Comments INFORMATION SOURCE (unrecogn ized section and content) DATE CREATED AUTHOR 08/26/[address] [facility] DATE CREATED AUTHOR AUTHOR'S ORGANIZ ATION 05/30/2022 [facility] DATE CREATED AUTHOR AUTHOR'S ORGANIZ ATION 01/18/2023 Heath Yates [facility] DATE CREATED AUTHOR AUTHOR'S ORGANIZ ATION 03/20/2023 [facility] EPIC DATE CREATED AUTHOR AUTHOR'S ORGANIZ ATION 03/29/2023 [facility] DATE CREATED AUTHOR AUTHOR'S ORGANIZ ATION 04/18/2023 [facility] DATE CREATED AUTHOR AUTHOR'S ORGANIZ ATION 05/22/2023 [facility] Reason for Visit (unrecogniz ed [...] because she wanted to be checked first. Reason Comments Back Pain Neck Pain Reason Onset Date Comments Med Refill 04/30/2023 Ordered Prescriptions (unrec ognized section and content) Prescription Sig Dispensed Refills Start Date End Da te clindamycin (CLEOCIN) 150 MG capsule Take 3 capsules by mouth in the morning and 3 capsules at noon and 3 capsules before bedtime. Do all this for 10 days. 90 capsule 0 10/12/2021 10/22/2021 Prescription Sig Dispensed Refills Start Date End Da te awaturqc-fykorltsi-amviho ortisone (CORTISPORIN) 3.5-43137-[address] 4 drops into the [...] (Given - Provid er: Leroy Roca, ZEYNEP) Scheduled Medication Order 04/18/2023 04/19/2023 04/20/2023 ketorolac [...] Care Teams (unrecognized sec tion and content) Science Teacher Relationship Specialty Start Date End Date Shawna Mcfadden, [address] [place] [address] PCP - General Family Medicine 10/12/21 Science Teacher Relationship Specialty Start Date End Date Shawna Mcfadden DO [address] [place] [address] PCP - General Family Medicine 10/12/21 Science Teacher Relationship Specialty Start Date End Date Shawna Mcfadden DO [address] [place] [address] PCP - General Family Medicine 10/12/21 Science Teacher Relationship Specialty Start Date End Date Shawna Mcfadden DO [address] [place] [address] PCP - General Family Medicine 05/02/22 Science Teacher Relationship Specialty Start Date End Date Vicky Mcfaddenty DO [address] [place] [address] PCP - General [facility] Medicine 10/12/21 Science Teacher Relationship Specialty Start Date End Date Shawna Mcfadden DO [address] [place] [address] PCP - General Family Medicine 05/02/22 Team Status: Active Member Role Status Dates NON STAFF Primary Care Provider Active Team Status: Active Member Role Status Dates Yo Blank MD Attending Provider Active S tart: March 05, 2023 Shawna Mcfadden DO Primary Care Provider Active Start: March 05, 2023 Team Status: Active Member Role Status Dates Yo Blank MD Attending Provider, Other Provider Active Start: March 18, 2023 NON STAFF Primary Care Provider Active Start: March 18, 2023 Science Teacher Relationship Specialty Start Date End Date Shawna Mcfadden DO [address] [place] [address] PCP - General Family Medicine 05/02/22 Science Teacher Relationship Specialty Start Date End Date Shawna Mcfadden DO [address] [place] [address] PCP - General Family Medicine 10/12/21 Science Teacher Relationship Specialty Start Date End Date Shawna Mcfadden DO [address] [place] [address] PCP - [facility] 05/02/22 Science Teacher Relationship Specialty Start Date End Date Shawna Mcfadden DO [address] [place] [address] PCP - [facility] 10/12/21 Science Teacher Relationship Specialty Start Date End Date Shawna Mcfadden DO [address] [place], [place] [id number] PCP - [facility] 05/02/22 Goals (unrecognized section and content) Goals may [...] BE BASED ON THE PRIMARY CLINICAL RECORDS. [facility]. provides no warranty or guarantee of the accuracy or completeness of information in this document.
[2023-06-01 12:08] LABS: Age Gdln ACOG Testing Note (.); HPV Aptima Negative (Negative); IGP, Aptima HPV, rfx 16/18,45 Note (.)
== END 2023-05-25 21:25 | disposition home or self-care (01) ==
LOC: LAB 21:24
PROVIDERS: PCP Nurse Practitioner Primary Care; Visit Provider Obstetrics & Gynecology
DX: Z01.419 Encounter for gynecological examination (general) (routine) without abnormal findings (principal)
CPT/HCPCS: 87624; G0145

== ENCOUNTER 2023-07-21 14:31 | Outpatient (OUT) | payer OTHER, SELFPAY ==
--- OUTSIDE RECORDS SUMMARY | 2023-07-21 14:48 | XMS_ITS | CCD ---
Author Organization [facility] [employer] Care Team Providers Care Restaurant Assistant Manager Name Role Phone Juan Ramon Jean Unavailable Unavailable WisilvestreJuan Ramon marie Unavailable Unavailable DOMENICA OLIVA Unavailable Unavailable Rumschlag DO, Shawna Primary Care Provider Yo Blank Unavailable Gayathri [...] Attending Unavailable MISC, DR TRAORE Consulting Unavailable Jna Garg Unavailable DOMENICA OLIVA Primary Care Physician HILARY GRANADO Referring Unavailable HILARY GRANADO Attending Unavailable Rumschlag DO, Shawna Primary Care Provider Rumschlahaider DO, Shawna K Primary Care Provider [phone] MD Yo Blank Attending Provider Rumzandra, DO Shawna Primary Care Provider SHAMMO, RORY Referring Unavailable RUMSCHLAG, SHAWNA K Primary Care Unavailable SHAMMO, RORY Referring Unavailable RUMSCHLAG, SHAWNA K Primary Care Unavailable EPTE SILVER Attending Unavailable PETE SILVER Referring Unavailable RUMSCHLAG, SHAWNA K Primary Care Unavailable PETE SILVER Admitting Unavailable PETE SILVER Attending Unavailable RUMSCHLAG, SHAWNA K Referring Unavailable RUMSCHLAG, SHAWNA K Primary Care Unavailable NON STAFF Primary Care Unavailable Yo Blank Admitting Unavailable Yo Blank Attending Unavailable Myrtle Cerna Admitting Unavailable Myrtle Cerna Attending Unavailable Rory Driver Primary Care Unavailable Rumschlag, Shawna Primary Care Unavailable Yo Blank Admitting Unavailable Yo Blank Attending Unavailable LULY ENGLISH Attending Unavailable GABY JUNE Attending Unavailable ALICIA PRESTON Attending Unavailable DEEPIKA ROBLEDO Attending Unavailable JORGE, CARMEN Referring Unavailable RUMSCHLAG, SHAWNA K Primary Care Unavailable RUMSCHLAG, SHAWNA K Referring Unavailable RUMSCHLAG, SHAWNA K Primary Care Unavailable RUMSCHLAG, SHAWNA K Referring Unavailable RUMSCHLAG, SHAWNA K Primary Care Unavailable RUMSCHLAG, SHAWNA Referring Unavailable RUMSCHLAG, SHAWNA Primary Care Unavailable RUMSCHLAG, SHAWNA Referring Unavailable RUMSCHLAG, SHAWNA Primary Care Unavailable RUMSCHLAG, SHAWNA Referring Unavailable RUMSCHLAG, SHAWNA Primary Care Unavailable RUMSCHLAG, SHAWNA Primary Care Unavailable RUMSCHLAG, SHAWNA Referring Unavailable RUMSCHLAG, SHAWNA Referring Unavailable RUMSCHLAG, SHAWNA Primary Care Unavailable RUMSCHLAG, SHAWNA Primary Care Unavailable SIL SULLIVAN Attending Unavailable RUMSCHLAG, SHAWNA [...] sources) cephalexin; Translations: [Keflex] Drug Allergy 3 [facility] Repository (4 sources) citalopram; Translations: [CeleXA] Drug Allergy 3 AOF, heart palpitation [facility] Repository (18 sources) Cephalexin; Translations: [CEPHALEXIN] Drug Allergy 7 Hives [facility] Work Phone: (20 sources) Citalopram; Translations: [CITALOPRAM] Drug Allergy 7 Hives, anaphylaxis [facility] [employer] (5 sources) metFORMIN Drug Allergy Unknown [facility] Other (20 sources) metFORMIN; Translations: [METFORMIN] Drug Allergy 3 Unknown [facility] (10 sources) POISON DEVORAH EXTRACT; Translations: [POISON DEVORAH EXTRACT] Drug Allergy 3 [facility] (1 source) Cephalexin Drug Allergy 4 [facility] Repository (1 source) Citalopram Drug Allergy 4 [facility] Repository (1 source) metFORMIN Drug Allergy 4 [facility] Repository (3 sources) Metformin And Related Propensity to adverse reactions to drug 4 Other (See Comments) [facility] Medic[facility] Current Medications Medication Drug Class(es) Dates Sig (Normalized) Sig (Original) [id number] 200 actuat albuterol 0.09 mg/actuat metered dose [...] Active ascorbic acid 500 mg oral tablet (11 sources) Vitamin C Start: 3 take 1 tablet by mouth in the morning, then take 1 tablet by mouth at bedtime ascorbic acid (VITAMIN C) 500 mg tablet Take 1 tablet (500 mg total) by mouth in the morning and 1 tablet (500 mg total) before bedtime. 0 02/24/2023 Active bifidobacterium infantis 4 mg oral capsule (12 sources) Start: 3 take 4 mg by mouth once daily Align 4 MG as directed Orally ONCE DAILY for 30 days Dec, Active blood-glucose meter (TRUE METRIX GLUCOSE METER) misc (7 sources) Start: 9 blood-glucose meter (TRUE METRIX GLUCOSE METER) [facility] use to test BLOOD SUGAR TWICE DAILY 1 each 0 06/17/2018 Active cetirizine hydrochloride 10 mg oral tablet (16 sources) Histamine-1 Receptor Antagonist Start: 0 take 1 tablet by mouth once daily cetirizine (ZyrTEC) 10 mg tablet TAKE 1 TABLET BY MOUTH DAILY 30 tablet 5 02/06/2020 Active cholecalciferol 0.05 mg oral capsule (15 sources) Vitamin D Start: 2 take 1 capsule by mouth in the morning cholecalciferol, vitamin D3, 2,000 units capsule Take 1 capsule (2,000 Units total) by mouth in the morning. 0 04/09/2021 Active take 1 capsule by [facility] every twenty-four hours Vitamin D3 50 MCG [...] mg docusate sodium 100 mg oral capsule (10 sources) Start: 01-07-2023 docusate sodiu m (COLACE) 100 mg capsule Start: 01-07-2023 take 3 capsules by m outh every twenty-four hours Docusate Sodium 100 MG 3 CAPSULES Orally Once a day for 30 days Dec, Active trulicity 3 mg/0.5ml solution pen-injector (8 sources) GLP-1 Receptor Agonist Trulicity 3 MG/0.5ML as directed Subcutaneous WEEKLY Active DULoxetine 30 mg delayed release oral capsule (6 sources) Serotonin and Norepinephrine Reuptake Inhibitor Start: [...] Active ferrous sulfate 325 mg oral tablet (14 sources) Start: 04-09-2020 take 1 tablet by mouth once daily ferrous sulfate 325 (65 FE) mg tablet TAKE 1 TABLET BY MOUTH DAILY 30 tablet 5 04/09/2020 Active fexofenadine hydrochloride 60 mg oral tablet (13 sources) Histamine-1 Receptor Antagonist take 1 tablet [...] / neomycin 3.5 mg/ml / polymyxin b 26928 unt/ml otic solution (1 source) Aminoglycoside Antibacterial, Polymyxin-class Antibacterial, Corticosteroid Start: 10-22-2021 End: 10-29-2021 zpulaiwk-euyrwuhjl-iubgmwbac isone (CORTISPORIN) 3.5-50223-[address] 4 drops into the left ear 3 times daily for 7 days Instill into left Ear TID x 7 days 10 mL 0 10/22/2021 10/29/2021 Active hydrOXYzine hydrochloride 25 mg oral tablet (7 sources) Antihistamine Start: 10-21-2017 take 1 tablet [...] Active 10 ml methocarbamol 100 mg/ml injection (8 sources) Muscle Relaxant Start: 10-14-2018 Robaxin 100 [...] MOUTH NIGHTLY 30 tablet 0 07/16/2020 Active prsvmycg-zxpy-NA-ca lcium &mins (THERAGRAN-M) 9 mg iron-400 mcg tablet (7 sources) wlxckyiw-rgmh-DU -c alcium &mins (THERAGRAN-M) 9 mg iron-400 [...] 60 tablet 2 12/02/2022 Active NON FORMULARY (14 sources) NON FORMULARY Hair, Skin & Nails - 2 gummies in the morning 0 Active NON FORMULARY Ne osporin cream- applies to bilateral nostrils 3 times a day 0 Active omeprazole 20 mg delayed release oral capsule (7 sources) Proton Pump Inhibitor take 2 capsules [...] 05/10/2020 Active plecanatide 3 mg oral tablet (5 sources) Start: 023 take 1 tablet by mouth in the morning TRULANCE 3 mg tablet Take 1 tablet by mouth in the morning. 0 02/27/2023 Active Start: 02-05-2023 take 1 tablet by elan th every twenty-four hours Trulance 3 MG 1 tablet Orally Once a day for 30 days Jan, Active polyethylene glycol 3350 269137 mg / potassium chloride 2970 mg / sodium bicarbonate 6740 mg / sodium chloride 5860 mg / sodium sulfate 30684 mg powder for oral solution (2 sources) [...] Nausea, # 20 tab(s), Refills(s) 0, Pharmacy: [id number], 157, cm, 03/10/19 12:21:00 EST, Height/Length [...] 1.5 ml semaglutide 1.34 mg/ml pen injector (16 sources) Start: 01-15-2022 semaglutide 1 mg/dose (2 [...] day Active temazepam 15 mg oral capsule (7 sources) Benzodiazepine take 1 capsule by mouth [...] Status: Ordered take 2 tablets by mo [facility] every twenty-four hours tiZANidine HCl 4 MG 2 tablet Orally daily Active take 1 tablet by elan every twelve hours tiZANidine HCl 4 MG 1 tablet Orally TWICE A DAY Active topiramate 200 mg oral tablet (7 sources) take 1 tablet by mouth once daily topiramate (TOPAMAX) 200 MG tablet Take 200 mg by mouth daily 0 Active traMADol hydrochloride 50 mg oral tablet (11 sources) Opioid Agonist take 1 tablet by [...] Active TRULICITY 3 mg/0.5 mL pen injector (7 sources) Start: 10-15-2022 TRULICITY 3 mg/0.5 mL pen injector Injects on Sundays 0 10/15/2022 Active Ventolin HFA 90 mcg/inh Aerosol (1 source) Start: 10-14-2018 Ventolin HFA 9 0 mcg/inh Aerosol Refill(s) 0 Start Date: 10/14/18 Status: Ordered Vitamin B Complex (7 sources) Start: 01-16-2020 take 1 tablet by mouth once daily B COMPLEX-VITAMIN B12 tablet TAKE 1 TABLET BY MOUTH DAILY 30 tablet 5 01/16/2020 Active Vitamin D (13 sources) Vitamin D Active zonisamide 100 mg oral capsule (7 sources) Anti-epileptic Agent take 1 capsule by [...] as directed Subcutaneous Not-Taking polyethylene glycol 3350 10223 mg powder for oral solution (7 sources) [...] health services in other specified circumstances] Onset: 06-16-2023 Episodic Anxiety disorders (20 sources) Posttraumatic stress [...] with hyperglycemia] Chronic Diabetes mellitus without complication (7 sources) 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; Translations: [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s] Onset: 11-10-2017 11-10-2017 Chronic Diverticulosis and diverticulitis (7 sources) Diverticulitis; Translations: [Diverticulitis of intestine, part [...] sources) Large breast; Translations: [Hypertrophy of breast] Onset: 06-02-2023 06-02-2023 Episodic Other ear and sense organ disorders (1 source) Acute otitis externa; Translations: [Diffuse otitis externa, left ear] Episodic Other endocrine disorders (20 sources) Reactive hypoglycemia; Translations: [Other hypoglycemia] Chronic Other endocrine disorders (8 sources) Other hypoglycemia Chronic Other gastrointestinal disorders (9 sources) Constipation; Translations: [Constipation, unspecified] 03-02-2023 Episodic Other injuries and conditions due [...] Translations: [OBSTRUCTIVE SLEEP APNEA] Onset: 05-07-2022 Chronic Residual codes; unclassified (1 source) Pain, unspecified; Translations: [Pain, unspecified] Onset: 06-03-2023 Episodic Screening and history of mental health and substance abuse codes (1 source) Abnormal developmental screening; Translations: [Encounter for autism screening] Episodic Skin and subcutaneous tissue infections (1 source) Pilonidal cyst; Translations: [Pilonidal cyst without abscess] Episodic Spondylosis; intervertebral disc disorders; other back problems (20 sources) Displacement of cervical intervertebral disc; Translations: [...] Documented Da te Episodic/Chronic Biliary tract disease (7 sources) Acute cholecystitis; Translations: [Acute cholecystitis] Onset: 09-15-2016 09-15-2016 Episodic Complications of surgical procedures or medical care (7 sources) Abscess; Translations: [Infection following a procedure, other surgical site, initial encounter] Onset: 09-28-2016 09-28-2016 Episodic Immunizations and screening for infectious disease (1 source) Encounter for screening for other viral diseases; Translations: [ENC SCREENING FOR OTH VIRAL DZ] Onset: 02-25-2022 Episodic Lymphadenitis (7 sources) Axillary lymphadenopathy; Translations: [Localized enlarged lymph nodes] Onset: 05-10-2020 05-10-2020 Episodic Mood disorders (7 sources) Mood disorders Onset: 05-02-2020 05-02-2020 Other connective tissue disease (1 source) Pain in left foot; Translations: [PAIN IN LEFT FOOT] Onset: 02-01-2022 Episodic Other gastrointestinal disorders (5 sources) Constipation, unspecified; Translations: [Constipation, unspecified] Onset: 03-02-2023 Episodic Other liver diseases (4 sources) Abnormal levels of other serum enzymes; Translations: [ABNORMAL LEVELS OTHER SERUM ENZYMES] Onset: 02-17-2022 Episodic Other non-traumatic joint disorders (4 sources) Pain in left ankle and joints of left foot; Translations: [PAIN IN LEFT ANKLE] Onset: 01-29-2022 Episodic Spondylosis; intervertebral disc disorders; other back problems (15 sources) 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; Translations: [Intervertebral disc 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] Onset: 12-02-2022 12-16-2022 Episodic Unclassified (7 sources) Onset: 02-10-2020 02-10-2020 Results Test Name [...] Andi Montoya MD 04/20/23 Final result Normal [facility] CT Cervical spine WO contras ton 04-20-2023 Radiology Study observation (narrative) [facility] CT HEAD WO CONTRASTon 2023 CT HEAD [...] Andi Montoya MD 04/20/23 Final result Normal [facility] CT Head WO contraston 2023 Radiology Study observation (narrative) [facility] No Panel Informationon 04-[address] abnormal ity identified in the brain. No acute osseous abnormality identified in the cervical spine. [facility] EXAMINATION: CT OF THE CERVICAL SPINE [...] There is no prevertebral soft tissue swelling. [facility] Andi Montoya MD - 04/20/2023 EXAMINATION: [...] osseous abnormality identified in the cervical spine. [facility] [employer] No Panel InformationOrdered By: Andi Montoya on 04-20-2023 [facility] [employer] [facility] Work Phone: Glucose Glucometer (BldC) [M ass/Vol]on 03-27-2023 Glucose [Mass/Vol] 151 mg/dL High 65-99 [facility] Glucose Poct Glucometerson 0 03-18-2023 Commemt1 Glu2: Cleaned Meter Normal [facility] Comment on above: Result Comment: PERF ORMED BY: [place] [address] PATHOLOGIST FUSELAGE FRAMER SHA VALERA M.D. Performed By: #### G LULS #### Point of Care testing , Glucose [Mass/Vol] 87 mg/dL Normal [facility] Comment on above: Result Comment: [facility] Glucose Reference Range is dependent on time and content of last meal. Glucose of more than 200 mg/dL in a nonstressed, ambulatory subject supports the diagnosis of Diabetes Mellitus. Performed By: #### G LULS #### Point of Care testing , HCG,Urineon 03-18-2023 Beta HCG ( test) Ql (U) Negative [facility] Comment on above: Result Comment: PERF ORMED BY: [place] [address] PATHOLOGIST FUSELAGE FRAMER SHA VALERA M.D. Performed By: #### U HCG #### [address] CBC AND AUTO DIFFon 03-16-19 ABSOLUTE BASOPHIL 0.0 X10E9/L Normal 0.0-0.2 [facility] Comment on above: Performed By: #### C JAHAIRA BURGESS, 36232-3, TSHR #### [facility] ([id number]) [address], [address] [place] [address] ABSOLUTE NEUTROPHIL 7.7 X10E9/L High 1.5-6.6 [facility] Comment on above: Performed By: #### C JAHAIRA BURGESS, 00618-8, TSHR #### [facility] ([id number]) [address], [address] [place] [address] Basophils/100 WBC (Bld) 0.3 % Normal [facility] Comment on above: Performed By: #### C JAHAIRA BURGESS, 59512-0, TSHR #### [facility] ([id number]) [address] [address] [place] [address] Eosinophils (Bld) [#/Vol] 0.1 10*3/uL Normal 0.0-0.4 [facility] Comment on above: Performed By: #### C JAHAIRA BURGESS, 81383-9, TSHR #### [facility] ([id number]) [address], [facility] [address] [place] [address] Eosinophils/100 WBC (Bld) 1.1 % Normal [facility] Comment on above: Performed By: #### C JAHAIRA BURGESS, 94830-0, TSHR #### [facility] ([id number]) [address] [address] [place] [address] Erythrocyte distribution width (RBC) [Ratio] 14.6 % Normal 11.5-15.0 [facility] Comment on above: Performed By: #### C JAHAIRA BURGESS, 15743-1, TSHR #### [facility] ([id number]) [address] [address] [place] [address] Hematocrit (Bld) [Volume fraction] 45.7 % Normal 35-47 [facility] Comment on above: Performed By: #### C JAHAIRA BURGESS, 71340-4, TSHR #### [facility] ([id number]) [address] [address] [place] [address] Hemoglobin (Bld) [Mass/Vol] 15.0 g/dL Normal 11.7-15.5 [facility] Comment on above: Performed By: #### C ADITYA, JAHAIRA, 17442-9, TSHR #### [facility] ([id number]) [address] [address] [place] [address] Lymphocytes (Bld) [#/Vol] 2.4 10*3/uL Normal 1.0-3.5 [facility] Comment on above: Performed By: #### C BCA, CMP, 81288-8, TSHR #### [facility] ([id number]) [address], [address] [place] [address] Lymphocytes/100 WBC (Bld) 22.1 % Normal [facility] Comment on above: Performed By: #### C BCA, CMP, 20124-6, TSHR #### [facility] ([id number]) [address], [address] [place] [address] MCH (RBC) [Entitic mass] 29.0 pg Normal 27-34 [facility] Comment on above: Performed By: #### Terrell BURGESS, CMP, 65274-3, TSHR #### [facility] ([id number]) [address] [address] [place] [address] MCHC (RBC) [Mass/Vol] 32.8 g/dL Normal 32-36 [facility] Comment on above: Performed By: #### C BCA, CMP, 91100-1, TSHR #### [facility] ([id number]) [address], [facility] [address] [place] [address] MCV (RBC) [Entitic vol] 88 fL Normal 80-100 [facility] Comment on above: Performed By: #### Terrell BCA, CMP, 39693-1, TSHR #### [facility] ([id number]) [address], [address] [place] [address] Monocytes (Bld) [#/Vol] 0.6 10*3/uL Normal 0-0.9 [facility] Comment on above: Performed By: #### Terrell BCA, CMP, 92843-5, TSHR #### [facility] ([id number]) [address] [address] [place] [address] Monocytes/100 WBC (Bld) 5.7 % Normal [facility] Comment on above: Performed By: #### Terrell BCA, CMP, 97444-2, TSHR #### [facility] ([id number]) [address], [address] [place] [address] Neutrophils/100 WBC (Bld) 70.8 % Normal [facility] Comment on above: Performed By: #### C ADITYA CMP, 39728-7, TSHR #### [facility] ([id number]) [address], [address] [place] [address] Platelet mean volume (Bld) [Entitic vol] 9.7 fL Normal 7-12 [facility] Comment on above: Performed By: #### C JAHAIRA BURGESS, 14276-5, TSHR #### [facility] ([id number]) [address], [address] [place] [address] Platelets (Bld) [#/Vol] 303 10*3/uL Normal 150-450 [facility] Comment on above: Performed By: #### Terrell BURGESS CMP, 65135-7, TSHR #### [facility] ([id number]) [address], [address] [place] [address] RBC COUNT 5.17 X10E12/L Normal 3.80-5.20 [facility] Comment on above: Performed By: #### C ADITYA CMP, 40735-7, TSHR #### [facility] ([id number]) [address], [address] [place] [address] WBC (Bld) [#/Vol] 10.9 10*3/uL Normal 4.0-11.0 [facility] Comment on above: Performed By: #### Terrell BURGESS CMP, 68117-3, TSHR #### [facility] ([id number]) [address], [address] [place] [address] COMPREHENSIVE METABOLIC PANE Dirk 03-16-2023 Albumin [Mass/Vol] 4.7 g/dL Normal 3.2-5.3 [facility] Comment on above: Performed By: #### C BCA, CMP, 97189-1, TSHR #### [facility] ([id number]) [address], [address] [place] [address] ALP [Catalytic activity/Vol] 74 U/L Normal 39-130 [facility] Comment on above: Performed By: #### C BCA, CMP, 46661-6, TSHR #### [facility] ([id number]) [address], [address] [place] [address] ALT [Catalytic activity/Vol] 22 U/L Normal 0-31 [facility] Comment on above: Performed By: #### C BCA, CMP, 11957-4, TSHR #### [facility] ([id number]) [address], [address] [place] [address] Anion gap [Moles/Vol] 12 mmol/L Normal 5-15 [facility] Comment on above: Performed By: #### C BCA, CMP, 63774-3, TSHR #### [facility] ([id number]) [address], [address] [place] [address] AST [Catalytic activity/Vol] 20 U/L Normal 0-41 [facility] Comment on above: Performed By: #### C BCA, CMP, 83240-6, TSHR #### [facility] ([id number]) [address], [address] [place] [address] Bilirubin [Mass/Vol] 0.5 mg/dL Normal 0.3-1.2 [facility] Comment on above: Performed By: #### C BCA, CMP, 69915-8, TSHR #### [facility] ([id number]) [address], [address] [place] [address] Calcium [Mass/Vol] 9.9 mg/dL Normal 8.5-10.5 [facility] Comment on above: Performed By: #### C BCA, CMP, 46670-6, TSHR #### [facility] ([id number]) [address], [address] [place] [address] Chloride [Moles/Vol] 105 mmol/L Normal 98-109 [facility] Comment on above: Performed By: #### C JAHAIRA BURGESS, 40143-4, TSHR #### [facility] ([id number]) [address], [address] [place] [address] CO2 [Moles/Vol] 25 mmol/L Normal 22-32 [facility] Comment on above: Performed By: #### C JAHAIRA BURGESS, 45399-0, TSHR #### [facility] ([id number]) [address], [address] [place] [address] Creatinine [Mass/Vol] 0.74 mg/dL Normal 0.40-1.00 [facility] Comment on above: Result Comment: METH OD TRACEABLE TO IDMS STANDARD Performed By: #### C JAHAIRA BURGESS, 61325-5, TSHR #### [facility] ([id number]) [address], [address] [place] [address] eGFR (CKD-EPI) NON-RACE DEPENDENT >90 Normal >59 [facility] Comment on above: Result Comment: Reported eGFR is based on the CKD-EPI 2020 equation that does not use a race coefficient. Performed By: #### C JAHAIRA BURGESS, 73930-6, TSHR #### [facility] ([id number]) [address], [address] [place] [address] Glucose [Mass/Vol] 143 mg/dL High 65-99 [facility] Comment on above: Performed By: #### C JAHAIRA BURGESS, 91779-8, TSHR #### [facility] ([id number]) [address], [address] [place] [address] Potassium [Moles/Vol] 3.8 mmol/L Normal 3.5-5.0 [facility] Comment on above: Performed By: #### C ADITYA CMP, 79676-5, TSHR #### [facility] ([id number]) [address], [address] [place] [address] Protein [Mass/Vol] 7.8 g/dL Normal 6.0-8.0 [facility] Comment on above: Performed By: #### Terrell BURGESS, CMP, 53180-8, TSHR #### [facility] ([id number]) [address], [address] [place] [address] Sodium [Moles/Vol] 142 mmol/L Normal 134-146 [facility] Comment on above: Performed By: #### Terrell BURGESS CMP, 29116-5, TSHR #### [facility] ([id number]) [address], [address] [place] [address] Urea nitrogen [Mass/Vol] 17 mg/dL Normal 5-23 [facility] Comment on above: Performed By: #### Terrell BURGESS, CMP, 16445-9, TSHR #### [facility] ([id number]) [address], [address] [place] [address] HGB A1C (GLYCO-HGB)on 2023 Glucose [Mass/Vol] 117 mg/dL Normal [facility] Comment on above: Performed By: #### Terrell BURGESS CMP, 82768-0, TSHR #### [facility] ([id number]) [address], [address] [place] [address] HbA1c (Bld) [Mass fraction] 5.7 % High 4.4-5.6 [facility] Comment on above: Result Comment: NOTE ADA Guidelines Result HgbA1c Normal : less than 5.7 % Prediabetes : 5.7 % to 6.4 % Diabetes : > 6.4 % Use with caution in patients with abnormal hemoglobin variants as the half-life of red blood cells and in vivo glycation rates are affected. Performed By: #### C ADITYA, CMP, 86854-3, TSHR #### [facility] ([id number]) [address], [address] [place] [address] Lipid 1996 panelon 4 Cholesterol [Mass/Vol] 132 mg/dL Low 150-200 [facility] Comment on above: Performed By: #### Terrell BURGESS, CMP, 90369-5, TSHR #### [facility] ([id number]) [address], [address] [place] [address] Cholesterol in HDL [Mass/Vol] 58 mg/dL Normal >39 [facility] Comment on above: Result Comment: HDL <40 mg/dL - High Risk HDL > or = 40mg/dL- Desirable HDL >60 mg/dL - Negative Risk Performed By: #### Terrell BURGESS, JAHAIRA, 15108-5, TSHR #### [facility] ([id number]) [address], [address] [place] [address] Cholesterol in LDL [Mass/Vol] 51 mg/dL Normal <130 [facility] Comment on above: Result Comment: LDL <100 mg/dL - Desirable LDL >160 mg/dL - High Risk Performed By: #### Terrell BURGESS, CMP, 73379-7, TSHR #### [facility] ([id number]) [address], [address] [place] [address] Cholesterol in VLDL [Mass/Vol] 23 mg/dL Normal 0-30 [facility] Comment on above: Performed By: #### Terrell BCA, CMP, 33430-1, TSHR #### [facility] ([id number]) [address], [address] [place] [address] CHOLESTEROL:HDL 2.3 Normal 1.0-5.0 [facility] Comment on above: Performed By: #### C BCA, CMP, 36880-8, TSHR #### [facility] ([id number]) [address], [address] [place] [address] Triglyceride [Mass/Vol] 114 mg/dL Normal 27-150 [facility] Comment on above: Performed By: #### C BCA, CMP, 71439-8, TSHR #### [facility] ([id number]) [address], [address] [place] [address] MAMM SCREENING BILATERAL W C orthopaedic doctor 03-16-2023 MAMM SCREENING BILATERAL W CAD MAMM [...] 3:25 PM 0A a ADDITIONAL I Normal [facility] TSH WITH REFLEXon 03-16-2023 TSH 0.55 uIU/mL Normal 0.49-4.67 [facility] Comment on above: Performed By: #### C BCA, CMP, 89603-7, TSHR #### [facility] ([id number]) [address] [facility], [address] [place] [address] PT - Assessmentson 3 PT - Assessments [id number]#1.00CD:12 [address] [facility] ST - Assessmentson 3 ST - Assessments [id number]#1.00CD:127 [facility] Consenton 09-25-2022 Consent [id number]#1.00CD:127 [facility] Outside Recordson 2022 Outside Records [id number]#1.00CD:127 [facility] ST - Orderson 2022 ST - Orders [id number]#1.00CD:127 [facility] ST - Orders [id number]#1.00CD:127 [facility] ST - Otheron 2022 ST - Other [id number]#1.00CD:127 [facility] PAP ACOG PANEL 2: 30 to 65on 05-27-2022 . . Normal [facility] Comment on above: Result Comment: Perf ormed at: WB Performed By: #### 4 [id number] #### [facility] [address] [place] [address] Dr. Do Aguilar Age Gdln ACOG Testing 30-65 [facility] Comment on above: Performed By: #### 4 [id number] #### [facility] [address] [place] [address] Dr. Do Aguilar DIAGNOSIS: Comment [facility] Comment on above: Result Comment: NEGA TIVE FOR INTRAEPITHELIAL LESION OR MALIGNANCY. Performed at: WB Performed By: #### 4 [id number] #### [facility] [address] [place] [address] Dr. Do Aguilar HPV Aptima Negative Normal Negative [facility] Comment on above: Result Comment: This nucleic acid amplification test detects fourteen high-risk HPV types (16,18,31,33,35,39,45,51,52,56,58,59,66,68) without differentiation. Performed at: =G Performed By: #### 4 [id number] #### [facility] [address] [place] [address] Dr. Do Aguilar HPV Genotype Reflex Comment Normal [place] Comment on above: Result Comment: Crit eria not met, HPV Genotype not performed. Performed at: WB Performed By: #### 4 [id number] #### [facility] [address] [place] [address] Dr. Do Aguilar Methodology: Comment Normal [facility] Comment on above: Result Comment: This liquid based ThinPrep(R) pap test was screened with the use of an image guided system. Performed at: WB Performed By: #### 4 [id number] #### [facility] [address] [place] [address] Dr. Do Aguilar Note: Comment Normal [facility] Comment on above: Result Comment: The Pap smear is a screening test designed to aid in the detection of premalignant and malignant conditions of the uterine cervix. It is not a diagnostic procedure and should not be used as the sole means of detecting cervical cancer. Both false-positive and false-negative reports do occur. . Performed at: WB Performed By: #### 4 [id number] #### [facility] [address] [place] [address] Dr. Do Aguilar Performed by: Comment Normal [facility] Comment on above: Result Comment: Melissa Ramachandran, Telesales Representative (ASCP) Performed at: WB Performed By: #### 4 [id number] #### [facility] [address] [place] [address] Dr. Do Aguilar Specimen adequacy: Comment Normal [facility] Comment on above: Result Comment: Sati sfactory for evaluation. Endocervical and/or squamous metaplastic cells (endocervical component) are present. Performed at: WB Performed By: #### 4 [id number] #### [facility] [address] [place] [address] Dr. Do Aguilar HEPATITIS C AB CASCADE TO QU ANT PCR GENOon 02-18-2022 HCV AB <0.1 Normal 0.0-0.9 [facility] Comment on above: Performed By: #### H EPCASC #### [facility] [address] [place] [address] Dr. Do Aguilar Interpretation: Comment Normal [facility] Comment on above: Result Comment: Nega tive Not infected with HCV, unless recent infection is suspected or other evidence exists to indicate HCV infection. Performed By: #### H EPCASC #### [facility] [address] [place] [address] Dr. Do Aguilar LIVER PROFILEon 02-17-2022 Albumin [Mass/Vol] 3.6 g/dL Normal 3.4-5.0 [facility] Comment on above: Performed By: #### L IVER #### [facility] [address] [place] [address] Dr. Do Aguilar Albumin/Globulin [Mass ratio] 0.9 {ratio} Normal [facility] Comment on above: Performed By: #### L IVER #### [facility] [address] [place] [address] Dr. Do Aguilar ALP [Catalytic activity/Vol] 79 U/L Normal 46-116 [facility] Comment on above: Performed By: #### L IVER #### [facility] [address] [place] [address] Dr. Do Aguilar ALT [Catalytic activity/Vol] 51 U/L Normal 14-59 [facility] Comment on above: Performed By: #### L IVER #### [facility] [address] [place] [address] Dr. Do Aguilar AST [Catalytic activity/Vol] 33 U/L Normal 15-37 [facility] Comment on above: Performed By: #### L IVER #### [facility] [address] [address] [address] Do Aguilar BILI, CONJUGATED 0.1 mg/dL Normal 0.0-0.2 [facility] Comment on above: Performed By: #### L IVER #### [facility] [address] [address] [address] Do Aguilar Bilirubin [Mass/Vol] 0.3 mg/dL Normal 0.2-1.0 [facility] Comment on above: Performed By: #### L IVER #### [facility] [address] [place] [address] Dr. Do Aguilar Globulin (S) [Mass/Vol] 4.2 g/dL Normal [facility] Comment on above: Performed By: #### L IVER #### [facility] [address] [place] [address] Dr. Do Aguilar Protein [Mass/Vol] 7.8 g/dL Normal 6.4-8.2 [facility] Comment on above: Performed By: #### L IVER #### [facility] [address] [place] [address] Dr. Do Aguilar TSHon 02-17-2022 TSH 0.457 uIU/mL Normal 0.358-3.74 0 [facility] Comment on above: Performed By: #### T SH #### [facility] [address] [place] [address] Dr. Do Aguilar VITAMIN B12on 02-17-2022 Cobalamin (Vitamin B12) [Mass/Vol] 1864.0 pg/mL Critically high 193.0-986. 0 [facility] Comment on above: Performed By: #### V ITB12 #### [facility] [address] [place] [address] Dr. Do Aguilar History and Physicalon 12-04 History and Physical [id number]#1.00OTGTIFF [facility] Operative Report - Surgeon/P andrewozzie 12-04-2016 Operative Report - Surgeon/Physician [id number]#1.00[facility] Coding Summaryon 11-26-2016 Coding Summary CODING DATE: 017 [facility] STATUS: Home PAYOR: Medicaid HMO ADMIT DX: REASON FOR VISIT DX: R10.13 Epigastric pain R10.11 Right upper quadrant pain FINAL DX: PRINCIPAL: K29.70 Gastritis, unspecified, without bleeding SECONDARY: PROCEDURES DOCTOR NAME DATE 46463 EsophagogastroduodenTed mena Richard MD 11/21/2016 flexible, transoral; with biopsy, single or multiple NOTE: The code number assigned matches the documented diagnosis and / or procedure in the patient's chart. However, the narrative phrase printed from the coding software may appear abbreviated, or result in slightly different terminology. Coded By: Rosalba Laureano Date Saved: 11/26/2016 01:09 pm [facility] Consent Formson 11-24-2016 Consent Forms [id number]#1.00[facility] 2016 Intraoperative Note [id number]#1.00[facility] Intraoperative Note [id number]#1.00OT[facility] Operative Report - Surgeon/P godwin 11-24-2016 Operative Report - Surgeon/Physician DATE OF PROCEDURE: 11/21/2016PREOPERATIVE DIAGNOSIS: Epigastric pain/right upper quadrant pain.POSTOPERATIVE DIAGNOSIS: Moderate gastritis.PROCEDURE PERFORMED: EGD with biopsy x1 from the antrum of the stomach forH. pylori testing.SURGEON: Juan Ramon Jean M.D.ANESTHESIA: Conscious sedation with Versed 6 mg IV, Demerol 50 mg IV.FINDINGS: As above.DISPOSITION: [facility] fair [facility].INDICATIONS: The patient is [...] in two weeks.Juan Ramon Jean M.D.JOB #: [id number]: 11/21/2016T: 11/21/2016[Electronically Signed on: 12/03/2016 07:09 EDT] Juan Ramon Jean MD Generated Domain User for [id number][Verified on: 12/03/2016 07:09 EDT] Juan Ramon Jean MD[Transcribed on: 11/21/2016 11:37 EDT]U [facility] Telemetry Stripson 7 Telemetry Strips [id number]#1.00OTGTIFF [facility] Telemetry Strips [id number]#1.00OTGTIFF [facility] H. Pylori Gastricon 11-22-19 17 H. Pylori Rico Int Ctrl Pass [facility] Comment on above: Order Comment: H. (A NTRUM) Result Comment: Pass Performed By: #### 2 [id number] ####[facility] (DEFAULT)[address] [place] [address] H. Pylori Gastric Negative Normal Negative [facility] Comment on above: Order Comment: H. (A NTRUM) Result Comment: Nega tive Performed By: #### 2 [id number] ####[facility] (DEFAULT)[address] [place] [address] Inpatient Clinical Summaryon 11-21-2016 Inpatient Clinical Summary [facility] SURGERYClinical Discharge SummaryPERSON INFORMATIONName KARMA SR Age 36 Years 80Sex FEMALE Language Brazilian PCP DOMENICA OLIVAMarital Status Med Service Ambulatory SurgeryN [id number] Acct# Arrival 11/21/16 07:22:21Visit Reason EGD - EPIGASTRIC ABDOMINAL PAIN Acuity LOS 013 23:19Address:[address] [place] [address] [id number]:PROVIDER INFORMATIONVITALS INFORMATIONVital Sign Triage LatestTemp OralTemp Temporal 36.4 DegC 36.4 DegCTemp IntravascularTemp AxillaryTemp Lkahpd85 Sat 100 % 97 %Respiratory Rate 16 [...] llow up:With: Address: When:Juan Ramon Jean [address] [place] [address] Business (1) Within 2 to 4 weeksComments:Call for follow up appointmentWith: Address: When:DOMENICA OLIVA [address] [place] [address] Business (1)DIAGNOSISAcute gastritisComment:PHYS DOC NOTES [facility] Inpatient Patient Summaryon 11-21-2016 Inpatient Patient Summary [place] [id number] patient Discharge InstructionsName: KARMA SRDOB: [birth year] Address: [address] [place] [address] Care Provider:Name: HAZEL DOMENICAPhone: Discharge Diagnosis: Acute gastritisIf you received any [...] or business decisions or sign any legal documentsMarion Hospital would like to thank you for allowing us to assist you with your healthcare needs. The following includes patient education materials and information regarding your injury/illness.KARMA SR has been given the following list of follow-up instructions, prescriptions, and patient education materials:Follow-up InstructionsWith: Address: When:Juan Ramon Jean [address] [phone] Business (4) Within 2 to 4 weeksComments:Call for follow up appointmentWith: Address: When:DOMENICA VARGHESEMARK [address] [place] [address] Business (7)MedicationsDuring the course of your visit, your medication [...] for Disease Control and Prevention October 2013 [facility] MAGR Endo Intraoperative Rec ordon 11-21-2016 [facility] Intraoperative Record [facility] Intra-Op Record Summary Primary Physician: Juan Ramon Jean MD Finalized Date/Time: 11/21/16 08:37:38 Pt. Name: ROSE BANEGASKARMA/Sex: 1980 FEMALE Med Rec #: [id number] Physician: Juna Ramon Jean MD Financial #: [id number] Pt. Type: D Room/Bed: / Admit/Disch: 11/21/16 [...] Jane RN Role Performed Surgeon - Primary Gripper Machine Operator Gripper Machine Operator Time In 11/21/16 08:06:00 11/21/16 08:06:00 11/21/16 [...] Unfinalizing Freetext Reason for Unfinalizing 11/21/16 08:37 [facility] MAGR Endo Postoperative Benjamin rdon 11-21-2016 MAG[facility] Endo Postoperative Record [facility] Endo Phase II Record Summary Primary Physician: Juan Ramon Jean MD Finalized Date/Time: 11/21/16 10:02:07 Pt. Name: KARMA SR/Sex: 1980 FEMALE Med Rec #: [id number] Physician: Juan Ramon Jean MD Financial #: [id number] Pt. Type: D Room/Bed: / Admit/Disch: 11/21/16 [...] Signed By: Cammy Barroso RN 11/21/16 10:02 [facility] MAGR Endo Preoperative Recor don 11-21-2016 [facility] Endo Preoperative Record [facility] Endo Pre-Op Record Summary Primary Physician: Juan Ramon Jean MD Finalized Date/Time: 11/21/16 08:27:58 Pt. Name: KARMA SR/Sex: 1980 FEMALE Med Rec #: [id number] Physician: Juan Ramon Jean MD Financial #: [id number] Pt. Type: D Room/Bed: / Admit/Disch: 11/21/16 [...] Signed By: Cammy Barroso RN 11/21/16 08:27 [facility] Test Urine 1on U Preg Negative [facility] Comment on above: Result Comment: Nega tive Performed By: #### 3 [id number] ####[facility] (DEFAULT)[address] [place] [address] U Preg Internal Control Pass [facility] Comment on above: Result Comment: Pass Performed By: #### 3 [id number] ####[facility] (DEFAULT)[address] [place] [address] Vital Signs Date Time Vital Sign Value Performing Clinician Facility 06-02-2023 14:32-0400 Body mass index (BMI) [Ratio] 36.67 kg/m2 Deepika Robledo MD Work Phone: [facility] 06-02-2023 14:32-0400 Body weight 93.89 kg Deepika Robledo MD Work Phone: [facility] 06-02-2023 14:32-0400 Diastolic blood pressure 102 mm[Hg] Deepika Robledo MD Work Phone: [facility] [email or web address] [facility] 06-02-2023 14:32-0400 Heart rate 83 /min Deepika Robledo MD Work Phone: [facility] [email or web address] [facility] 06-02-2023 14:32-0400 Systolic blood pressure 136 mm[Hg] Deepika Robledo MD Work Phone: [facility] [email or web address] [facility] 04-28-2023 11:21-0500 Body height 160 cm Gil Alba PA Work Phone: [facility] [email or web address] [facility] 04-28-2023 11:21-0500 Body mass index (BMI) [Ratio] 36.14 kg/m2 Gil Alba PA Work Phone: [facility] [email or web address] [facility] 04-28-2023 11:21-0500 Body weight 92.53 kg Gil Alba PA Work Phone: [facility] [email or web address] [facility] 04-28-2023 11:21-0500 Diastolic blood pressure 82 mm[Hg] Gil Alba PA Work Phone: [facility] [email or web address] [facility] 04-28-2023 11:21-0500 Heart rate 87 /min Gil Alba PA Work Phone: [facility] [email or web address] [facility] 04-28-2023 11:21-0500 Respiratory rate 16 /min Gil Alba PA Work Phone: [facility] [email or web address] [facility] 04-28-2023 11:21-0500 SaO2% (BldA) [Mass fraction] 97 % Gil Alba PA Work Phone: [facility] [email or web address] [facility] 04-28-2023 11:21-0500 Systolic blood pressure 122 mm[Hg] Gil Alba PA Work Phone: [facility] [email or web address] [facility] 04-20-2023 12:41-0500 Body mass index (BMI) [Ratio] 36.49 kg/m2 Shawna Rumschlag DO Work Phone: [facility] 04-20-2023 12:41-0500 Body weight 93.44 kg Shawna Rumschlag DO Work Phone: [facility] 04-20-2023 12:41-0500 Diastolic blood pressure 76 mm[Hg] Shawna Rumschlag DO Work Phone: [facility] [employer] 04-20-2023 12:41-0500 Heart rate 83 /min Shawna Rumschlag DO Work Phone: [facility] 04-20-2023 12:41-0500 Respiratory rate 16 /min Shawna Rumschlag DO Work Phone: [facility] 04-20-2023 12:41-0500 SaO2% (BldA) [Mass fraction] 98 % Shawna Rumschlag DO Work Phone: [facility] 04-20-2023 12:41-0500 Systolic blood pressure 129 mm[Hg] Shawna Rumschlag DO Work Phone: [facility] 04-20-2023 12:39-0500 Body temperature 97.3 [degF] Shawna Rumschlag DO Work Phone: [facility] 03-18-2023 11:30-0500 Diastolic blood pressure 84 mm[Hg] MD Yo Blank Work Phone: [facility] 03-18-2023 11:30-0500 Heart rate 95 /min MD Yo Blank Work Phone: [facility] 03-18-2023 11:30-0500 Respiratory rate 16 /min MD Yo Blank Work Phone: [facility] 03-18-2023 11:30-0500 SaO2% (BldA) [Mass fraction] 99 % MD Yo Blank Work Phone: [facility] 03-18-2023 11:30-0500 Systolic blood pressure 123 mm[Hg] MD Yo Blank Work Phone: [facility] 03-05-2023 09:15-0500 Body height 160.02 cm Gayathri Scally Other [facility] Other 03-05-2023 09:15-0500 Body mass index (BMI) [Ratio] 37.57 kg/m2 Gayathri Scally Other [facility] Other 03-05-2023 09:15-0500 Body weight 96.21 kg Gayathri Scally Other [facility] Other 03-05-2023 09:15-0500 Diastolic blood pressure 89 mm[Hg] Gayathri Scally Other [facility] Other 03-05-2023 09:15-0500 Respiratory rate 18 /min Gayathri Scally Other [facility] Other 03-05-2023 09:15-0500 SaO2% (BldA) [Mass fraction] 96 % Gayathri Scally Other [facility] Other 03-05-2023 09:15-0500 Systolic blood pressure 122 mm[Hg] Gayathri Scally Other [facility] Other 03-02-2023 19:24-0500 Body height 160 cm Sil Sullivan DO Work Phone: [employer] 03-02-2023 19:24-0500 Body mass index (BMI) [Ratio] 36.31 kg/m2 Sil Sullivan DO Work Phone: [employer] 03-02-2023 19:24-0500 Body temperature 98.29 [degF] Sil Sullivan DO Work Phone: [employer] 03-02-2023 19:24-0500 Body weight 92.99 kg Sil Sullivan DO Work Phone: [employer] 03-02-2023 19:24-0500 Diastolic blood pressure 98 mm[Hg] Sil Sullivan DO Work Phone: [employer] 03-02-2023 19:24-0500 Heart rate 82 /min Sil Sullivan DO Work Phone: [employer] 03-02-2023 19:24-0500 Respiratory rate 18 /min Sil Sullivan DO Work Phone: [employer] 03-02-2023 19:24-0500 SaO2% (BldA) [Mass fraction] 98 % Sil Sullivan DO Work Phone: [employer] 03-02-2023 19:24-0500 Systolic blood pressure 139 mm[Hg] Sil Sullivan DO Work Phone: [employer] 02-05-2023 09:20-0500 Body height 160.02 cm Jan Garg Other [facility] Other 02-05-2023 09:20-0500 Body mass index (BMI) [Ratio] 36.66 kg/m2 Jan Garg Other [facility] Other 02-05-2023 09:20-0500 Body weight 93.9 kg Jan Garg Other [facility] Other 01-15-2023 09:45-0500 Body height 160.02 cm Gayathri Adams Other [facility] Other 01-15-2023 09:45-0500 Body mass index (BMI) [Ratio] 36.68 kg/m2 Gayathri Brooklynly Other [facility] Other 01-15-2023 09:45-0500 Body weight 93.94 kg Gayathri Scally Other [facility] Other 01-15-2023 09:45-0500 Diastolic blood pressure 83 mm[Hg] Gayathri Scally Other [facility] Other 01-15-2023 09:45-0500 Respiratory rate 18 /min Gayathri Scally Other [facility] Other 01-15-2023 09:45-0500 SaO2% (BldA) [Mass fraction] 99 % Gayathri Scally Other [facility] Other 01-15-2023 09:45-0500 Systolic blood pressure 119 mm[Hg] Gayathri Scally Other [facility] Other 01-07-2023 10:00-0500 Body height 160.02 cm Jan Garg Other [facility] Other 01-07-2023 10:00-0500 Body mass index (BMI) [Ratio] 36.13 kg/m2 Jan Garg Other [facility] Other 01-07-2023 10:00-0500 Body weight 92.53 kg Jan Scovanner Other [facility] Other 01-07-2023 10:00-0500 Diastolic blood pressure 74 mm[Hg] Jan Scovanner Other [facility] Other 01-07-2023 10:00-0500 Systolic blood pressure 118 mm[Hg] Jan Billovanner Other [facility] Other 08-28-2022 09:00-0400 Body height 160.02 cm Tamar Fitt Other [facility] Other 08-28-2022 09:00-0400 Body mass index (BMI) [Ratio] 35.8 kg/m2 Tamar Fitt Other [facility] Other 08-28-2022 09:00-0400 Body weight 91.67 kg Tamar Fitt Other [facility] Other 07-29-2022 10:15-0400 Body height 160.02 cm Gayathri Scally Other [facility] Other 07-29-2022 10:15-0400 Body mass index (BMI) [Ratio] 35.18 kg/m2 Gayathri Scally Other [facility] Other 07-29-2022 10:15-0400 Body weight 90.08 kg Gayathri Scally Other [facility] Other 07-29-2022 10:15-0400 Diastolic blood pressure 84 mm[Hg] Gayathri Scally Other [facility] Other 07-29-2022 10:15-0400 Respiratory rate 18 /min Gayathri Scally Other [facility] Other 07-29-2022 10:15-0400 SaO2% (BldA) [Mass fraction] 99 % Gayathri Scally Other [facility] Other 07-29-2022 10:15-0400 Systolic blood pressure 127 mm[Hg] Gayathri Scally Other [facility] Other 05-20-2022 11:15-0400 Body height 160.02 cm Gayathri Scally Other [facility] Other 05-20-2022 11:15-0400 Body mass index (BMI) [Ratio] 34.52 kg/m2 Gayathri Scally Other [facility] Other 05-20-2022 11:15-0400 Body weight 88.41 kg Gayathri Scally Other [facility] Other 05-20-2022 11:15-0400 Diastolic blood pressure 82 mm[Hg] Gayathri Scally Other [facility] Other 05-20-2022 11:15-0400 Respiratory rate 18 /min Gayathri Scally Other [facility] Other 05-20-2022 11:15-0400 SaO2% (BldA) [Mass fraction] 97 % Gayathri Scally Other [facility] Other 05-20-2022 11:15-0400 Systolic blood pressure 121 mm[Hg] Gayathri Scally Other [facility] Other 04-08-2022 11:15-0500 Body height 160.02 cm Gayathri Scally Other [facility] Other 04-08-2022 11:15-0500 Body mass index (BMI) [Ratio] 34.49 kg/m2 Gayathri Scally Other [facility] Other 04-08-2022 11:15-0500 Body weight 88.32 kg Gayathri Scally Other [facility] Other 04-08-2022 11:15-0500 Diastolic blood pressure 77 mm[Hg] Gayathri Scally Other [facility] Other 04-08-2022 11:15-0500 Respiratory rate 18 /min Gayathri Scally Other [facility] Other 04-08-2022 11:15-0500 SaO2% (BldA) [Mass fraction] 98 % Gayathri Scally Other [facility] Other 04-08-2022 11:15-0500 Systolic blood pressure 110 mm[Hg] Gayathri Scally Other [facility] Other 04-08-2022 10:15-0500 Body height 160.02 cm Tamar Fitt Other [facility] Other 04-08-2022 10:15-0500 Body mass index (BMI) [Ratio] 34.49 kg/m2 Tamar Fitt Other [facility] Other 04-08-2022 10:15-0500 Body weight 88.32 kg Tamar Fitt Other [facility] Other 02-26-2022 10:00-0500 Body height 160.02 cm Tamar Fitt Other [facility] Other 02-25-2022 11:45-0500 Body height 160.02 cm Gayathri Scally Other [facility] Other 02-25-2022 11:45-0500 Body mass index (BMI) [Ratio] 36.63 kg/m2 Gayathri Scally Other [facility] Other 02-25-2022 11:45-0500 Body weight 93.8 kg Gayathri Scally Other [facility] Other 02-25-2022 11:45-0500 Diastolic blood pressure 78 mm[Hg] Gayathri Scally Other [facility] Other 02-25-2022 11:45-0500 Respiratory rate 18 /min Gayathri Scally Other [facility] Other 02-25-2022 11:45-0500 SaO2% (BldA) [Mass fraction] 97 % Gayathri Scally Other [facility] Other 02-25-2022 11:45-0500 Systolic blood pressure 109 mm[Hg] Gayathri Scally Other [facility] Other 01-14-2022 11:45-0500 Body height 160.02 cm Gayathri Scally Other [facility] Other 01-14-2022 11:45-0500 Body mass index (BMI) [Ratio] 39.37 kg/m2 Gayathri Scally Other [facility] Other 01-14-2022 11:45-0500 Body weight 100.84 kg Gayathri Scally Other [facility] Other 01-14-2022 11:45-0500 Diastolic blood pressure 88 mm[Hg] Gayathri Scally Other [facility] Other 01-14-2022 11:45-0500 Respiratory rate 18 /min Gayathri Scally Other [facility] Other 01-14-2022 11:45-0500 SaO2% (BldA) [Mass fraction] 97 % Gayathri Scally Other [facility] Other 01-14-2022 11:45-0500 Systolic blood pressure 124 mm[Hg] Gayathri Scally Other [facility] Other 12-04-2021 12:00-0400 Body height 160.02 cm Gayathri Scally Other [facility] Other 12-04-2021 12:00-0400 Body mass index (BMI) [Ratio] 39.73 kg/m2 Gayathri Scally Other [facility] Other 12-04-2021 12:00-0400 Body weight 101.74 kg Gayathri Scally Other [facility] Other 12-04-2021 12:00-0400 Diastolic blood pressure 74 mm[Hg] Gayathri Scally Other [facility] Other 12-04-2021 12:00-0400 Respiratory rate 18 /min Gayathri Scally Other [facility] Other 12-04-2021 12:00-0400 SaO2% (BldA) [Mass fraction] 95 % Gayathri Scally Other [facility] Other 12-04-2021 12:00-0400 Systolic blood pressure 110 mm[Hg] Gayathri Adams Other [facility] Other 10-29-2021 11:30-0400 Body height 160.02 cm Yo Blank Other [facility] Other 10-29-2021 11:30-0400 Body mass index (BMI) [Ratio] 38.61 kg/m2 Yo Trinidadyuliya Other [facility] Other 10-29-2021 11:30-0400 Body weight 98.88 kg Yo Blank Other [facility] Other 10-29-2021 11:30-0400 Diastolic blood pressure 74 mm[Hg] Yo Ruizkikeyuliya Other [facility] Other 10-29-2021 11:30-0400 Systolic blood pressure 111 mm[Hg] Yo Rosamaria Other [facility] Other 10-22-2021 13:26-0400 Body temperature 97.2 [degF] Shawna Rumschlag DO Work Phone: [employer] 10-22-2021 13:26-0400 Diastolic blood pressure 71 mm[Hg] Shawna Rumschlag DO Work Phone: [employer] 10-22-2021 13:26-0400 Heart rate 85 /min Shawna Rumschlag DO Work Phone: [employer] 10-22-2021 13:26-0400 Respiratory rate 16 /min Shawna Rumschlag DO Work Phone: [employer] 10-22-2021 13:26-0400 SaO2% (BldA) [Mass fraction] 94 % Shawna Rumschlag DO Work Phone: [facility] [employer] 10-22-2021 13:26-0400 Systolic blood pressure 131 mm[Hg] Shawna Mcfadden DO Work Phone: [facility] [employer] 10-11-2021 23:48-0400 Body height 160 cm Daniel Adkins MD Work Phone: [employer] 10-11-2021 23:48-0400 Body mass index (BMI) [Ratio] 36.67 kg/m2 Daniel Adkins MD Work Phone: [employer] 10-11-2021 23:48-0400 Body temperature 98.6 [degF] Daniel Adkins MD Work Phone: [employer] 10-11-2021 23:48-0400 Body weight 93.89 kg Daniel Adkins MD Work Phone: [employer] 10-11-2021 23:48-0400 Diastolic blood pressure 88 mm[Hg] Daniel Adkins MD Work Phone: [employer] 10-11-2021 23:48-0400 Heart rate 97 /min Daniel Adkins MD Work Phone: [employer] 10-11-2021 23:48-0400 Respiratory rate 16 /min Daniel Adkins MD Work Phone: [employer] 10-11-2021 23:48-0400 SaO2% (BldA) [Mass fraction] 96 % Daniel Adkins MD Work Phone: [employer] 10-11-2021 23:48-0400 Systolic blood pressure 134 mm[Hg] Daniel Adkins MD Work Phone: [employer] Encounters Encounter Date Encounter Type Care Provider Facility Start: 08-04-2023 ambulatory SHAWNA Jin [facility] Start: 07-14-2023 End: 07-14-2023 Subsequent hospital visit by physician Rebecca Skinner PT [facility] Physical Therapy Start: 07-07-2023 End: 07-08-2023 ambulatory SHAWNA DARIOLAHaider [facility] Start: 07-01-2023 ambulatory SHAWNA BOGDAN [facility] Start: 06-30-2023 End: 07-01-2023 ambulatory SHAWNA EDWARG [facility] Start: 06-17-2023 End: 06-18-2023 ambulatory SHAWNA EDWARG [facility] Start: 06-16-2023 End: 06-17-2023 ambulatory SHAWNA BOGDAN [facility] Start: 06-04-2023 End: 06-05-2023 ambulatory SHAWNA RUMNAFISAG [facility] Start: 06-03-2023 End: 06-04-2023 ambulatory SHAWNA BISHOPMTHaider [facility] Start: 06-02-2023 End: 06-02-2023 Office outpatient new 30 minutes Deepika Robledo MD [facility] Comment on above: Mass of upper outer quadrant of right breast (Primary Dx); Abnormal mammogram; Symptomatic mammary hypertrophy Start: 06-02-2023 End: 06-02-2023 ambulatory DEEPIKA ROBLEDO [facility] Start: 05-25-2023 End: 05-25-2023 ambulatory ALICIA GAUTHIERO Not Available Start: 05-20-2023 End: 05-21-2023 ambulatory SHAWNA EDWARG [facility] Start: 05-19-2023 End: 05-20-2023 ambulatory HSAWNA EDWARG [facility] Start: 05-12-2023 Telephone encounter Deepika Robledo MD Work Phone: [facility] Start: 05-06-2023 End: 05-07-2023 ambulatory SHAWNA RUMSCHLAG [facility] Start: 05-06-2023 End: 05-06-2023 Subsequent hospital visit by physician Rojas Altamirano PTA [facility] Physical Therapy Comment on above: Arrived Start: 05-05-2023 End: 05-06-2023 ambulatory [facility]OGDAN [facility] Start: 04-30-2023 Refill Maty Fulton RN [facility] Start: 04-28-2023 End: 04-28-2023 Office outpatient visit 25 minutes Gil Alba PA Work Phone: [facility] Comment on above: 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 (Primary Dx) Start: 04-21-2023 End: 04-22-2023 [facility] Start: 04-20-2023 End: 04-20-2023 Emergency department patient visit [facility] Start: 04-20-2023 End: 04-20-2023 Emergency department patient visit [facility] Work Phone: [facility] ED Comment on above: Closed head injury, initial encounter (Primary Dx); Fall due to slipping on ice or snow, initial encounter; Acute cervical myofascial strain, initial encounter Start: 04-16-2023 ambulatory Myrtle Cerna Facility: [facility] Start: 04-07-2023 End: 04-08-2023 [facility] Start: 03-31-2023 Refill Patricia Clay RN [facility] Start: 03-27-2023 End: 03-28-2023 ambulatory PETE SILVER [facility] Start: 03-24-2023 End: 03-25-2023 [facility] Start: 03-19-2023 End: 03-19-2023 ambulatory GABY JUEN Not Available Start: 03-18-2023 Telephone encounter Jan Peterson [facility] Start: 03-18-2023 End: 03-18-2023 ambulatory NON STAFF [facility] [employer] Other Start: 03-18-2023 Non-patient / Non-visit MD Yo Blank Work Phone: [facility] Work Phone: Start: 03-17-2023 End: 03-17-2023 ambulatory Jan Garg Other [facility] Other Start: 03-17-2023 Telephone encounter Jan Garg [facility] Start: 03-16-2023 Encounter for genera l adult medical examination without abnormal findings [facility] Start: 03-16-2023 End: 03-17-2023 ambulatory [facility] Start: 03-16-2023 End: 03-16-2023 ambulatory LULY ENGLISH Not Available Start: 03-10-2023 End: 03-11-2023 ambulatory [facility] Start: 03-10-2023 End: 03-10-2023 Subsequent hospital visit by physician Tamar Silveira PT [facility] Physical Therapy Comment on above: Arrived Start: 03-05-2023 (FCCCWMNF/U) Weight Management f/u [facility] Start: 03-05-2023 End: 03-05-2023 ambulatory [facility] [employer] Other Start: 03-05-2023 Registered Recurring MD Monserrat Blank Work Phone: [facility] Work Phone: Start: 03-02-2023 End: 03-02-2023 Emergency department patient visit SIL SULLIVAN [facility] Start: 03-02-2023 End: 03-02-2023 Emergency department patient visit Sil Sullivan DO Work Phone: [facility] ED Comment on above: Constipation, unspec ified constipation type (Primary Dx) Start: 02-26-2023 End: 02-26-2023 ambulatory Jan Garg Other [employer] Other Start: 02-26-2023 Telephone encounter Jan Peterson [facility] Start: 02-20-2023 Telephone encounter Argenis Storm RN [facility] Comment on above: Medication, DME Start: 02-18-2023 End: 02-18-2023 ambulatory Jan Garg Other [facility] Other Start: 02-18-2023 Telephone encounter Jan Peterson [facility] Start: 02-10-2023 Telephone encounter Margaux Olea [facility] Start: 02-05-2023 End: 02-05-2023 ambulatory Jan Garg Other [facility] Other Start: 02-05-2023 Office outpatient visit 15 minutes Jan Garg [facility] Start: 01-15-2023 [facility] Weight Management f/u Gayathri Adasm [facility] Start: 01-15-2023 End: 01-15-2023 ambulatory Gayathri Adams Other [facility] Other Start: 01-07-2023 End: 01-07-2023 ambulatory Jan Garg Other [facility] Other Start: 01-07-2023 Office outpatient visit 15 minutes Jan Garg [facility] Start: 09-25-2022 End: 01-16-2023 ambulatory [employer] YUE GRANADO Facility:[facility] Start: 09-25-2022 End: 01-15-2023 Recurring YUE GRANADO [facility] Start: 09-17-2022 End: 09-17-2022 ambulatory Gayathri Adams Other [facility] Other Start: 09-17-2022 Telephone encounter Gayathri Peterson formerly [facility] Start: 08-28-2022 ([facility] RD FU) [facility] F/ U [facility] Podiatric Medicine Professor Tamar Sosa [facility] Start: 08-28-2022 End: 08-28-2022 ambulatory Tamar Sosa Other [facility] Other Start: 07-29-2022 [facility] Weight Management f/u Gayathri Adams [facility] Start: 07-29-2022 End: 07-29-2022 ambulatory Gayathri Brooklynludy Other [facility] Other Start: 05-20-2022 [facility] Weight Management f/u Gayathri Adams [facility] Start: 05-20-2022 End: 05-20-2022 ambulatory Gayathri Angie Other [facility] Other Start: 05-19-2022 End: 05-19-[address] ALICIA PRESTON . Facility:[facility] Start: 05-07-2022 End: 05-08-[address] DOCTOR ARREOLA Facility:[facility] Start: 04-09-2022 End: 04-09-2022 ambulatory Gayathri Adams Other [facility] Other Start: 04-09-2022 Telephone encounter Gayathri Adams F [facility] Start: 04-08-2022 ([facility] WMNI) WMN Initial Provider Tamar Sosa [facility] Start: 04-08-2022 ([facility] Weight Management f/u Gayathrikasia Adams [facility] Start: 04-08-2022 End: 04-08-2022 ambulatory Tamar Sosa Other [facility] Other Start: 02-26-2022 End: 02-26-2022 ambulatory Tamar Santiagot Other [facility] Other Start: 02-26-2022 IBT FOR OBESITY GROU P 2-10 30M Tamar Jackkhalif [facility] Start: 02-25-2022 (FCCCWMNF/U) Weight Management f/u Gayathri Angie [facility] Start: 02-25-2022 End: 02-25-2022 ambulatory Gayathri Adams Other [facility] Other Start: 02-17-2022 End: 02-18-2022 ambulatory RORY DRIVER Facility:[facility] Start: 01-29-2022 End: 01-30-2022 ambulatory JOY Reis [facility] Facility:[facility] Start: 01-14-2022 (FCCCWMNF/U) Weight Management f/u Gayathri Angie [facility] Start: 01-14-2022 End: 01-14-2022 ambulatory Gayathri Adams Other [facility] Other Start: 12-05-2021 End: 12-05-2021 ambulatory Gayathri Angie Other [facility] Other Start: 12-05-2021 Telephone encounter Gayathri Adams [facility] Start: 12-04-2021 End: 12-04-2021 ambulatory Gayathri Aadms Other [facility] Other Start: 12-04-2021 Nutrition therapy Gayathri Angie [facility] Start: 10-29-2021 End: 10-29-2021 ambulatory Yo Blank Other [facility] Other Start: 10-29-2021 Patient encounter procedure Yo Blank [facility] Start: 10-22-2021 End: 10-22-2021 Emergency department patient visit Shawna Bogdan DO Work Phone: [facility] ED Comment on above: Acute diffuse otitis externa of left ear (Primary Dx) Start: 10-11-2021 End: 10-12-2021 Emergency department patient visit Daniel Adkins MD Work Phone: [facility] ED Comment on above: Pilonidal cyst (Prim romero Dx) Start: 11-21-2016 End: 11-26-2016 Ambulatory Juan Ramon Jean Facility:[facility] Procedures Date Procedure Procedure Detail Performing Clinician Start: 05-25-2023 Microscopic observat ion [Identifier] in Cervix by Cyto stain Deepika Robledo MD Work Phone: Start: 04-20-2023 Ct cervical spine w/ o contrast material M 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 - [employer] Work Phone: Start: 04-20-2023 Ct head/brain w/o co ntrast material Precious Cunningham 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 - [employer] Work Phone: Start: 05-02-2022 Microalbumin [Mass/v olume] in Urine by Test strip Patricia Clay RN Start: 05-02-2020 Adult depression scr eening assessment Argenis Storm RN Start: 08-30-2016 Cholecystectomy YUE PARISH Start: 01-03-2013 nasal surgery YUE ALVARENGA RS Tonsillectomy YUE GRANADO Plan of Treatment Date Care Activity Detail Author Start: 05-24-2026 Screening for malignant neoplasm of cervix Pap Smear [facility] Start: 06-01-2024 Adult BMI Screening Adult BMI Screen ing [facility] Start: 04-28-2024 Adult BMI Screening Adult BMI Screen ing [facility] Start: 04-28-2024 Tobacco Screening Tobacco Screening [facility] Start: 03-16-2024 Adult BMI Screening Adult BMI Screen ing [facility] Start: 01-30-2024 Adult BMI Screening Adult BMI Screen ing [facility] Start: 01-30-2024 Tobacco Screening Tobacco Screening [facility] Start: 11-01-2023 Influenza vaccination Influenza Vacc ine [facility] Start: 10-08-2023 End: 10-08-2023 Patient encounter procedure 10/08/2023 9:00 AM EDT [facility] [address] [address] Dwayne Khoury MD [address] , [place] [address] [place] [phone] [facility] Start: 08-18-2023 End: 08-18-2023 Patient encounter procedure 08/18/2023 9:45 AM EDT Appointment [facility] Physical Therapy [address] [place] [phone] Osito Rowan [facility] Physical Therapy Start: 08-11-2023 End: 08-11-2023 Patient encounter procedure 08/11/2023 1:15 PM EDT Appointment [facility] Physical Therapy [address] [place], [place] [phone] Jan Olmstead PT DRY NEEDLING [facility] Physical Therapy Comment on above: DRY NEEDLING Start: 08-04-2023 End: 08-04-2023 Patient encounter procedure 08/04/2023 4:15 PM EDT Appointment [facility] Physical Therapy [address] [place] [phone] Osito Rowan [facility] Physical Therapy Start: 06-03-2023 End: 06-03-2023 Patient encounter procedure 06/03/2023 3:30 PM EDT Appointment [facility] Physical Therapy [address] [place] [phone] Osito Rowan [facility] Physical Therapy Start: 06-02-2023 End: 06-02-2023 Patient encounter procedure [facility] Physical Therapy Comment on above: DRY NEEDLING- jd gibson coordinates with son's appt Start: 05-23-2023 Hepatitis B vaccine (3 of 3 - Hep B Twinrix 3-dose series) Hepatitis B vaccine (3 of 3 - Hep B Twinrix 3-dose series) [facility] Start: 05-20-2023 End: 05-20-2023 Patient encounter procedure 05/20/2023 3:15 PM EDT Appointment [facility] Physical Therapy [address] [place] [phone] Rojas Altamirano PTA [facility] Physical Therapy Start: 05-19-2023 End: 05-19-2023 Patient encounter procedure 05/19/2023 12:45 PM EDT Appointment [facility] Physical Therapy [address] [place] [phone] Rebecca Skinner, [place] DRY NEEDLING- dont move coordinates with son's apptDRY NEEDLING [facility] Physical Therapy Comment on above: DRY NEEDLING- dont m ove coordinates with son's apptDRY NEEDLING Start: 05-05-2023 End: 05-05-2023 Patient encounter procedure [facility] Physical Therapy Comment on above: DRY NEEDLING DRY NEEDLING- dont m ove coordinates with son's appt Start: 05-03-2023 Urine screening for protein Urine Microalbumin [facility] Start: 04-28-2023 End: 04-28-2023 Patient encounter procedure 04/28/2023 10:45 AM EST Office Visit [facility] [address] [place] [id number] Gil Alba PA [address] [place] [address] [facility] Start: 04-21-2023 End: 04-21-2023 Patient encounter procedure [facility] Physical Therapy Comment on above: DRY NEEDLING DRY NEEDLING- dont m ove coordinates with son's appt Start: 04-07-2023 End: 04-07-2023 Patient encounter procedure 04/07/2023 2:15 PM EST Appointment [facility] Physical Therapy [address] [place] [phone] Rebecca Skinner, PT DRY NEEDLING [facility] Physical Therapy Comment on above: DRY NEEDLING Start: 03-27-2023 End: 03-27-2023 Admission to same day surgery center 03/27/2023 1:27 PM EST - 03/27/2023 1:33 PM EST Surgery [facility] [address] [place] [address] Pete Silver MD [address] [place] [address] INJECTION BLOCK SACROILIAC JOINT [32212 (CPT )] [facility] Comment on above: INJECTION BLOCK SACR OILIAC JOINT [99249 (CPT )] Start: 03-27-2023 End: 03-27-2023 Inject si joint arthrgrphy&/anes/ster oid w/monika INJECTION BLOCK SACROILIAC JOINT Disorder of sacrum 03/27/2023 1:27 PM EST [facility] Start: 03-27-2023 Subsequent hospital visit by physician 03/27/2023 1:27 PM EST Hospital Encounter [facility] [address] [place] [phone] Pete Silver MD [address] [place] [address] [facility] Start: 03-24-2023 End: 03-24-2023 Patient encounter procedure 03/24/2023 2:15 PM EST Appointment [facility] Physical Therapy [address] [place], [place] [phone] Rebecca Skinner, PT DRY NEEDLING [facility] Physical Therapy Comment on above: DRY NEEDLING Start: 03-19-2023 [facility] Start: 03-16-2023 End: 03-16-2023 Patient encounter procedure 03/16/2023 11:45 AM EST Appointment [facility]A [address] [place] [phone] [facility] Start: 03-10-2023 End: 03-10-2023 Patient encounter procedure 03/10/2023 2:30 PM EST Appointment [facility] Physical Therapy [address] [place] [phone] Rebecca Skinner, PT [facility] Physical Therapy Start: 09-30-2022 Influenza vaccination Flu vaccine (# 1) [facility] Start: 10-31-2021 Influenza vaccination Flu vaccine (# 1) [facility] Start: 09-03-2021 DTaP,Tdap and Td Vaccines (1 - Tdap) DTaP,Tdap and Td Vaccines (1 - Tdap) [facility] Start: 09-03-2021 DTaP/Tdap/Td vaccine (1 - Tdap) DTaP/Tdap/Td vaccine (1 - Tdap) [facility] Start: 05-02-2021 Depression Screening Depression Scre [facility] Start: 2020 Lipid panel Lipids [facility] Start: 01-04-2020 Diabetic foot examination Diabetic Foot Exam [facility] Start: 09-25-2015 Diabetes screen Diabetes screen [facility] Start: 2010 Screening for malignant neoplasm of cervix [facility] Start: 2001 Screening for malignant neoplasm of cervix Pap smear [facility] Start: 09-25-1999 DTaP/Tdap/Td vaccine (1 - Tdap) DTaP/Tdap/Td vaccine (1 - Tdap) [facility] Start: 1998 Adult BMI Follow Up Plan Adult BMI Follow Up Plan [facility] Start: 1998 Hepatitis C screening Hepatitis C sc reen [facility] Start: 09-25-1995 HIV screening HIV screen [facility] Start: 1992 Depression Screen Depression Screen [facility] Start: 1992 Depression Screening Depression Scre [facility] Start: 1981 Varicella vaccine (1 of 2 - 2-dose childhood series) Varicella vaccine (1 of 2 - 2-dose childhood series) [facility] Start: 03-27-1981 COVID-19 Vaccine (#1) COVID-19 Vacci ne (#1) [facility] Start: 1980 Glaucoma screening Diabetic Op hthalmology Exam [facility] Start: 1980 Hepatitis B vaccine (1 of 3 - 3-dose series) Hepatitis B vaccine (1 of 3 - 3-dose series) [facility] Inject si joint arthrgrphy&/anes/ster oid w/monika INJECTION BLOCK SACROILIAC JOINT Disorder of sacrum [facility] Njx dx/ther agt pvrt facet jt lmbr/sac 1 level INJECTION BLOCK NERVE MEDIAL BRANCH Lumbosacral spondylosis without myelopathy [facility] Immunizations Immunization Date Immunization Notes Care Provider Saundra donnelly 12-22-2022 influenza virus vaccine, unspecified formulation Deepika Robledo MD Work Phone: [facility] 12-19-2018 influenza, injectabl e, quadrivalent, preservative free Argenis Storm RN [facility] 12-02-2017 influenza, injectabl e, quadrivalent, preservative free Argenis Storm RN [facility] 12-02-2017 pneumococcal conjuga te vaccine, 13 valent Argenis Storm RN [facility] 10-10-2016 influenza virus vaccine, unspecified formulation Argenis Storm RN [facility] 12-19-2013 influenza virus vaccine, live, attenuated, for intranasal use Argenis Storm RN [facility] 12-03-2012 influenza virus vaccine, whole virus Argenis Storm RN [facility] 12-29-2011 influenza virus vaccine, whole virus Argenis Storm RN [facility] 12-23-2010 influenza virus vaccine, whole virus Argenis Storm RN [facility] 12-18-2008 influenza virus vaccine, whole virus Argenis Storm RN [facility] Payers Date Payer Category Payer Self-pay [id number] 2002 Medicaid [place] [employer] [place] [employer] [id number] 2002-Present [phone] [address] [place] [address] [id number] [id number] 1980 Unknown [id number] 2.840.1.423682.3.579.2.593 1980 Unknown [id number] 2.840.1.542021.3.579.2.593 1980 Unknown [id number] 2.16840.1.821474.3.579.2.593 1980 Unknown [id number] 2.16840.1.402721.3.579.2.593 1980 Unknown [id number] 2.16.840.1.489926.3.579.2.727 1980 Unknown [id number] 2.16840.1.196568.3.579.2.1285 1980 Unknown [id number] 2.16840.1.153128.3.579.2.1285 1980 Unknown [id number] 2.16840.1.472966.3.579.2.1285 1980 Unknown [id number] 2.16840.1.812799.3.579.2.1285 1980 Unknown [id number] 2.840.1.832568.3.579.2.1258 1980 Unknown [id number] 2.16840.1.981385.3.579.2.1258 1980 Unknown [id number] 2.16840.1.300209.3.579.2.1258 1980 Unknown [id number] 2.840.1.795170.3.579.2.1285 1980 Unknown [id number] 2.16840.1.925517.3.579.2.1285 1980 Unknown [id number] 2.16840.1.085389.3.579.2.128 1980 Unknown [id number] 2.16840.1.725377.3.579.2. 1980 Unknown [id number] 2.16840.1.679477.3.579.2.173 1980 Unknown [id number] 2.16840.1.814566.3.579.2.173 1980 Unknown [id number] 2.16.840.1.737682.3.579.2.173 1980 Unknown [id number] 2.16.840.1.293521.3.579.2. 1980 Unknown [id number] 2.16.840.1.494337.3.579.2. 1980 Unknown [id number] 2.16.840.1.646513.3.579.2. 1980 Unknown [id number] 2.16.840.1.952183.3.579.2. 1980 Unknown [id number] 2.16.840.1.735103.3.579.2. 1980 Unknown [id number] 2.16.840.1.272999.3.579.2. 1980 Unknown [id number] 2.840.1.910863.3.579.2. 1980 Unknown [id number] 2.16840.1.151157.3.579.2. 1980 Unknown [id number] 2.16840.1.501662.3.579.2. 1980 Unknown [id number] 2.16.840.1.972709.3.579.2. 1980 Unknown [id number] 2.16840.1.727150.3.579.2. 1980 Unknown [id number] 2.16.840.1.702187.3.579.2. 1980 Unknown [id number] 2.16.840.1.769419.3.579.2. 1980 Unknown [id number] 2.16.840.1.292139.3.579.2. 1980 Unknown [id number] 2.16.840.1.738903.3.579.2.173 1959 Medicaid [id number] Unknown [id number] 2.16840.1.906932.3.579.2.531 Unknown [id number] 2.16.840.1.855484.3.579.2.531 Unknown [id number] 2.16.840.1.655787.3.579.2.531 Social History Date Type Detail Facility Start: 09-02-2017 End: 01-28-2022 Tobacco smoking status NHIS Never smoked tobacco [employer] Start: 09-02-2017 End: 01-28-2022 Tobacco use and exposure Smokeless tobacco non-user [employer] Phone: Start: 10-11-2021 End: 04-28-2023 Alcohol intake Current non-drinker of alcohol (finding) [facility] Phone: Start: 1980 Sex Assigned At Not on file B ON [employer] Phone: Start: 10-01-2021 End: 10-22-2021 Exposure to SARS-CoV-2 (event) Not sure [facility] Phone: Start: 03-13-2020 End: 10-11-2021 Sex Assigned At [facility] Tobacco smoking status Never [facility] Start: 03-13-2020 End: 10-11-2021 History of Social function [facility] Start: 1980 Sex Assigned At Female F [facility] Medical Equipment Procedure Code Equipment Code Equipment Origin al Text Equipment Identifier Dates Black Sut 5.5mm 2 Ft Crkscr Fbrwr Shldr 3 Pk 14.7mm Strl Ea=Bill-Only Rpl [id number] - [id number] Start: 05-15-2022 Use to test BLOO D SUGAR TWICE DAILY [id number] Start: 05-28-2020 Use to test BLOO D SUGAR TWICE DAILY, Diagnosis: E11.9 [id number] Start: 03-08-2020 Clinical Notes 10-22-2021 to 07-14-2023 Filomena Raphael - 07/14/2023 11:15 AM Chuy Holliday, [facility] - 06/02/2023 2:30 PM Chuy Holliday, [facility] - 06/02/2023 2:30 PM Chuy Holliday, [facility] - 06/02/2023 2:30 PM EDTAttachments Note Date & Type Note Facility 07-14-2023 History of Presen t illness Narrative Physical Therapy [facility] Inpatient/Observation/Outpatient Rehabilitation Date: 07/14/2023 Patient Name: Karma Candelaria [] Inpatient Acute/Observation [x] Outpatient : 1980 Plan of Care/Recert ends [x] Pt no showed for scheduled appointment [] Pt refused/declined therapy at this time due to: [] Pt cancelled due to: [] No Reason Given [] Sick/ill [] Other: [] Evaluation held by RN/Provider due to: [] High Heart Rate [] High Blood Pressure [] Orthopedic Consult [] Hgb < 7 [] Other: [] Pt does not require skilled services due to: Therapist/Audio/Video Technician will attempt to see this patient, at our earliest opportunity. Filomena Raphael Date: 07/14/2023 documented in this encounter [facility] 06-02-2023 History of Presen t illness Narrative Review of Systems Constitutional: Positive for fatigue. Gastrointestinal: Positive for blood in stool, constipation and diarrhea. Genitourinary: Positive for difficulty urinating. Musculoskeletal: Positive for back pain. Skin: Positive for rash. Neurological: Positive for weakness. Hematological: Bruises/bleeds easily. Psychiatric/Behavioral: Positive for sleep disturbance. The patient is nervous/anxious. nipple discharge Age menses began: 12 Age of menopause: no Menopausal symptoms (hot flashes, vaginal dryness, bloating): n/a How many pregnancies? 5 How many live births? 5 Age at first live ? 18 Use of hormone replacement therapy after menopause? no If yes: What kind? N/a How many years? N/a Current? N/a Year discontinued? N/a Are you of Ashkenazi Rastafarian decent? no Family history of cancer: relation and age, which side of family Breast Cancer: grandmother , mom (past away) Ovarian Cancer: mother, grandmother mom (past away) Pancreatic Cancer: n/a Prostate Cancer: n/a Colon Cancer: grandmother mom (past away) Other types of Cancer: myself cervical father thyroid (past away) Grandma ( unknown ) dad ( Past away) Your bra size: 36 K - 42G Previous breast surgery: no I had the pleasure of meeting Karma Banegas today. She is a very pleasant 42 y.o. year old female who presents today for recommendations regarding a right breast mass. She states she has had a benign-appearing right upper outer quadrant mass on imaging in the past. She underwent additional imaging after most recent mammogram and is here today to discuss recommendations. The areas asymptomatic to her. She denies any other changes to her breast. She denies other palpable mass, nipple discharge, skin changes, pruritus, or lymphadenopathy. I reviewed notes from her tipple mechanic dated 05/05/2023, imaging including mammogram and ultrasound dated 03/16/2023 and 03/25/2023, history form dated 06/02/2023. Past Medical History Past Medical History: Diagnosis Date Anxiety Asthma Back pain Bipolar 1 disorder ([facility]) Breast disorder enlarged lymph nodes in both breast Carpal tunnel syndrome Chronic pain disorder Deep vein thrombosis ([facility]) blood clot in left arm Dental disease [...] night 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 ([facility]) 11/10/2017 Visual impairment Past Surgical History Past Surgical History: Procedure Laterality Date ANKLE SURGERY Left x2 ARTHROSCOPY SHOULDER WITH ROTATOR CUFF REPAIR Right 05/15/2022 Performed by Chepe Ingram MD at [facility] DEBRIDEMENT Right 05/15/2022 Performed by Chepe Ingram MD at [facility] DECOMPRESSION OF SUBACROMIAL SPACE WITH PARTIAL ACROMIOPLASTY Right 05/15/2022 Performed by Chepe Ingram MD at [facility] INJECTION BLOCK EPIDURAL STEROID LUMBAR/SACRAL: L 4/5 WU N/A 04/22/2021 Performed by Pete Silver MD at [facility] INJECTION BLOCK SACROILIAC JOINT Left 03/27/2023 Performed by Pete Silver MD at [facility] CERVICAL OR THORACIC EPIDURAL BLOCK WITH STEROIDS: C67 WU N/A 01/29/2018 Performed by Pete Silver MD at [facility] LUMBAR OR SACRAL EPIDURAL BLOCK WITH STEROIDS: L45 WU N/A 10/15/2018 Performed by Pete Silver MD at [facility] MEDIAL BRANCH NERVE BLOCK: bilat L45 51 Bilateral 07/30/2018 Performed by Pete Silver MD at [facility] SPINE TRANSFORAMINAL: left C 5,6 Nroot Left 01/09/2023 Performed by Pete Silver MD at [facility] LAPAROSCOPIC CHOLECYSTECTOMY N/A 09/16/2016 Performed by Juan Ramon Jean MD at [facility] LIVER BIOPSY EMA PROCEDURE Right 05/15/2022 Performed by Chepe Ingram MD at [facility] NASAL SURGERY REPAIR HERNIA UMBILICAL 09/16/2016 Performed by Juan Ramon Jean MD at [facility] TONSILLECTOMY Family History Family History Problem Relation Age of Onset Diabetes Mother Thyroid Issues Mother Bleeding Disorder Father Thyroid Issues Father Diabetes Father Breast cancer Maternal Grandmother Stroke Maternal Grandfather Stroke Paternal Grandmother Anesthesia problems Neg Hx Current Medications Current Outpatient Medications: albuterol (PROVENTIL HFA;VENTOLIN HFA) 90 mcg/actuation inhaler, INHALE 2 PUFFS BY MOUTH EVERY 6 HOURS NEEDED FOR WHEEZING, Disp: 18 g, Rfl: 0 ALIGN 4 mg capsule, Take 1 capsule (4 mg total) by mouth in the morning., Disp: , Rfl: ascorbic acid (VITAMIN C) 500 mg tablet, Take 1 tablet (500 mg total) by mouth in the morning and 1 tablet (500 mg total) before bedtime., Disp: , Rfl: B COMPLEX-VITAMIN B12 tablet, TAKE 1 TABLET BY MOUTH DAILY (Patient not taking: Reported on 04/02/2022), Disp: 30 tablet, Rfl: 5 blood sugar diagnostic (TRUE METRIX GLUCOSE TEST STRIP) strip, Use to test BLOOD SUGAR TWICE DAILY, Disp: 100 strip, Rfl: 5 blood-glucose meter (TRUE METRIX GLUCOSE METER) misc, use to test BLOOD SUGAR TWICE DAILY, Disp: 1 each, Rfl: 0 cetirizine (ZyrTEC) 10 mg tablet, TAKE 1 TABLET BY MOUTH DAILY (Patient not taking: Reported on 05/15/2022), Disp: 30 tablet, Rfl: 5 cholecalciferol, vitamin D3, 2,000 units capsule, Take 1 capsule (2,000 Units total) by mouth in the morning., Disp: , Rfl: docusate sodium (COLACE) 100 mg capsule, , Disp: , Rfl: DULoxetine (CYMBALTA) 30 mg capsule, Take 1 capsule (30 mg total) by mouth in the morning., Disp: 30 capsule, Rfl: 3 empagliflozin (JARDIANCE) 25 mg tablet tablet, Take 1 tablet (25 mg total) by mouth in the morning., Disp: , Rfl: etonogestreL (NEXPLANON) 68 mg implant, 1 each (68 mg total) by subdermal route once., Disp: , Rfl: famotidine (PEPCID) 20 mg tablet, TAKE 1 TABLET BY MOUTH TWICE DAILY, Disp: 60 tablet, Rfl: 5 ferrous sulfate 325 (65 FE) mg tablet, TAKE 1 TABLET BY MOUTH DAILY (Patient not taking: Reported on 04/28/2023), Disp: 30 tablet, Rfl: 5 fexofenadine (ROS) 60 mg tablet, Take 1 tablet (60 mg total) by mouth in the morning., Disp: , Rfl: FLUoxetine (PROzac) 40 mg capsule, Take 1 capsule (40 mg total) by mouth in the morning., Disp: , Rfl: fluticasone propionate (FLONASE) 50 mcg/actuation nasal spray, instill 2 (TWO) sprays in EACH nostril ONCE DAILY, Disp: 16 g, Rfl: 0 gabapentin (NEURONTIN) 100 mg capsule, Take 1 capsule (100 mg total) by mouth in the morning and 1 capsule (100 mg total) before bedtime., Disp: , Rfl: ibuprofen (MOTRIN) 800 mg tablet, Take 1 tablet (800 mg total) by mouth every 6 (six) hours as needed for pain. (Patient not taking: Reported on 04/28/2023), Disp: , Rfl: lamoTRIgine (LaMICtal) 200 mg tablet, Take 1 tablet (200 mg total) by mouth in the morning., Disp: , Rfl: lancets (UNILET LANCET) 28 gauge [facility], Use to test BLOOD SUGAR TWICE DAILY, Diagnosis: E11.9, Disp: 100 each, Rfl: 5 LATUDA 80 mg tablet, Take 1 tablet (80 mg total) by mouth daily with breakfast., Disp: , Rfl: lisdexamfetamine (VYVANSE) 70 mg capsule, 1 capsule in the morning, Disp: , Rfl: montelukast (SINGULAIR) 10 mg tablet, TAKE 1 TABLET BY MOUTH NIGHTLY (Patient not taking: Reported on 04/28/2023), Disp: 30 tablet, Rfl: 0 jibzejjo-fudb-EB-calcium &mins (THERAGRAN-M) 9 mg iron-400 mcg tablet, Take 1 tablet by mouth in the morning., Disp: , Rfl: naproxen (NAPROSYN) 500 mg tablet, Take 1 tablet (500 mg total) by mouth in the morning and 1 tablet (500 mg total) in the evening. Take with meals. (Patient not taking: Reported on 04/28/2023), Disp: 60 tablet, Rfl: 2 NON FORMULARY, Hair, Skin & Nails - 2 gummies in the morning, Disp: , Rfl: NON FORMULARY, Neosporin cream- applies to bilateral nostrils 3 times a day, Disp: , Rfl: pioglitazone (ACTOS) 30 mg tablet, Take 1 tablet (30 mg total) by mouth daily., Disp: 30 tablet, Rfl: 5 rizatriptan (MAXALT) 10 mg tablet, TAKE 1 TABLET BY MOUTH at onset of migraine, may repeat after 2 hours if needed (max 2 tablets per day, 2 days per week) (Patient not taking: Reported on 01/09/2023), Disp: , Rfl: 2 rosuvastatin (CRESTOR) 20 mg tablet, Take 1 tablet (20 mg total) by mouth in the morning., Disp: , Rfl: semaglutide 1 mg/dose (2 mg/1.5 mL) pen injector, 2 mg once a week., Disp: , Rfl: SUMAtriptan (IMITREX) 100 mg tablet, TAKE 1 TABLET BY MOUTH at onset of FOR MIGRAINE. May repeat once after 2 hours if needed (max 2 TABLETS per day, 2 TABLETS per week) (Patient not taking: Reported on 01/09/2023), Disp: , Rfl: 2 tiZANidine (ZANAFLEX) 4 mg tablet, , Disp: , Rfl: traMADoL (ULTRAM) 50 mg tablet, Take 1 tablet (50 mg total) by mouth daily as needed for pain., Disp: , Rfl: traZODone (DESYREL) 50 mg tablet, as needed., Disp: , Rfl: TRULANCE 3 mg tablet, Take 1 tablet by mouth in the morning., Disp: , Rfl: TRULICITY 3 mg/0.5 mL pen injector, Injects on Sundays (Patient not taking: Reported on 04/28/2023), Disp: , Rfl: Allergies Allergies Allergen Reactions Metformin Severe hypoglycemia Celexa [Citalopram] Keflex [Cephalexin] Poison [place] Extract Social History Social History Substance and Sexual Activity Alcohol Use No Social History Tobacco Use Smoking Status Never Smokeless Tobacco Never Social History Substance and Sexual Activity Drug Use No OBJECTIVE Her weight is 93.9 kg (207 lb). Her blood pressure is 136/102 (abnormal) and her pulse is 83. Constitutional: awake, alert, no apparent distress Head: Normocephalic, atraumatic. Eyes: Conjunctiva normal bilaterally; EOMI Neck: supple; no lymphadenopathy, thyromegaly, or masses. Extremities: good circulation, without deformities. Neurologic: CN II-XII grossly intact. Oriented to place, person, and situation. Psychiatric: Appropriately interactive with provider. Normal mood and affect. Skin: no significant rashes or lesions on exposed skin. Examination of her chest in the upright position reveals very large ptotic breasts bilaterally. Examination of the left breast is normal. Examination of the right breast is normal. She has no evidence of palpable chest wall mass, axillary lymphadenopathy, or lymphedema. Her images were reviewed. She initially had a bilateral screening mammogram on 03/16/2023 through [facility]. Her breast tissue is almost entirely fatty. There was a 1 cm mass in the posterior upper-outer right breast 17 cm from the nipple. They thought this was likely a lymph node but recommended that she return for additional imaging. She had the imaging done in [place]. They did a right diagnostic mammogram and right ultrasound. There was a persistent nodule in the upper-outer quadrant which appeared to be consistent with a lymph node. Ultrasound of the area demonstrated 2 normal-appearing lymph nodes. They both measured over 2 cm but had normal cortices and hilum. ASSESSMENT/PLAN I discussed with Karma that is not uncommon to see lymph nodes within the breast tissue. In the breast and axilla we base concerns on the appearance on ultrasound rather than the overall size. These lymph nodes have a normal cortex and hilum. For that reason I do not believe anything needs to be done for this. I would recommend that she continue with her yearly mammogram. She had initially placed on her forearm that she had a maternal grandmother who had breast cancer and her mother with ovarian cancer. She contacted her mother during the visit and her mother had endometriosis, not ovarian cancer. I do not think she needs to be evaluated in our high-risk clinic. She is interested in a breast reduction and we referred her to Dr. Khoury. Her questions were answered to her satisfaction and I encouraged her to call me with any concerns. documented in this encounter [facility] 05-12-2023 Miscellaneous Notes Spoke with patient and scheduled with Dr. Robledo 4/2. Patient voiced understanding of appointment details. Patient was offered sooner dates but declined per her availability. documented in this encounter [facility] 05-12-2023 Telephone encounter Note Spoke with patient and scheduled with Dr. Robledo 4/2. Patient voiced understanding of appointment details. Patient was offered sooner dates but declined per her availability. [facility] 04-30-2023 Miscellaneous Notes Last Office Visit: 04/28/2023 Next Office Visit: Visit date not found Last Urine Drug Screen: No results found for: BENZOSCRN OARRS appropriate documented in this encounter [facility] 04-30-2023 Telephone encounter Note Last Office Visit: 04/28/2023 Next Office Visit: Visit date not found Last Urine Drug Screen: No results found for: BENZOSCRN OARRS appropriate [facility] 04-28-2023 History of Presen t illness Narrative [facility] [address] [place] [address] Patient: Karma Banegas Sex: female : 1980 [...] spine (09/2022 last visit for 11/05/22) at [facility] with no relief Back: 10/15/18 L4/5 WU [...] Anxiety Asthma Back pain Bipolar 1 disorder ([facility]) Breast disorder enlarged lymph nodes in both breast Carpal tunnel syndrome Chronic pain disorder Deep vein thrombosis [place] blood clot in left arm Dental disease [...] night 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 ([facility] 11/10/2017 Visual impairment Past Surgical History: Procedure Laterality Date ANKLE SURGERY Left x2 ARTHROSCOPY SHOULDER WITH ROTATOR CUFF REPAIR Right 05/15/2022 Performed by Chepe Ingram MD at [facility] DEBRIDEMENT Right 05/15/2022 Performed by Chepe Ingram MD at [facility] DECOMPRESSION OF SUBACROMIAL SPACE WITH PARTIAL ACROMIOPLASTY Right 05/15/2022 Performed by Chepe Ingram MD at [facility] INJECTION BLOCK EPIDURAL STEROID LUMBAR/SACRAL: L 4/5 WU N/A 04/22/2021 Performed by Pete Silver MD at [facility] INJECTION BLOCK SACROILIAC JOINT Left 03/27/2023 Performed by Pete Silver MD at [facility] CERVICAL OR THORACIC EPIDURAL BLOCK WITH STEROIDS: C67 WU N/A 01/29/2018 Performed by Pete Silver MD at [facility] INJECTION LUMBAR OR SACRAL EPIDURAL BLOCK WITH STEROIDS: L45 WU N/A 10/15/2018 Performed by Pete Silver MD at [facility] INJECTION MEDIAL BRANCH NERVE BLOCK: bilat L45 51 Bilateral 07/30/2018 Performed by Pete Silver MD at [facility] SPINE TRANSFORAMINAL: left C 5,6 Nroot Left 01/09/2023 Performed by Pete Silver MD at [facility] LAPAROSCOPIC CHOLECYSTECTOMY N/A 09/16/2016 Performed by Juan Ramon Jean MD at [facility] LIVER BIOPSY EMA PROCEDURE Right 05/15/2022 Performed by Chepe Ingram MD at [facility] NASAL SURGERY REPAIR HERNIA UMBILICAL 09/16/2016 Performed by Juan Ramon Jean MD at [facility] TONSILLECTOMY Allergies Allergen Reactions Metformin Severe hypoglycemia [...] Continue Cymbalta 30 mg daily Left L4/5, 5/ Facet Injection/Medial Branch Block - under fluoroscopy [...] accurate and complete. Peg Conrad CNA 04/28/23 [id number] UMESH Hodge 04/30/23 1141 documented in this encounter [employer] 04-28-2023 Instructions Peg GuerdateresaCLAUDE - 04/28/2023 10:45 AM EST Facet Injection [...] nearest emergency room. documented in this encounter [facility] 04-20-2023 Hospital Discharg e instructions Precious Urbina APRN - CNP - 04/20/2023 1:50 PM EST Increase fluid Tylenol Motrin for cough Continue home medications The following attachments cannot be sent through Care Everywhere.Head Injury: Closed: General Info (Brazilian)Cervical Strain (Brazilian)documented in this encounter [facility] 03-31-2023 Miscellaneous Notes Patient calls today and [...] medications prescribed to someone other than her. Merchandising Execution Associate reiterated this to patient. Patient's pharmacy was confirmed with her. Order pended for review and signature. [facility] Tele[facility] encounter Note Patient calls today [...] are [facility] than [facility] Tele[facility] encounter Note Is she still taking prozac? What dosage? Any other antidepressants? [facility] Telephone encounter Note Call placed to patient to confirm whether or not she is taking Prozac or other antidepressants. Patient states she is taking 40 mg Prozac daily. That is the only antidepressant that she takes. She is prescribed Latuda and Lamictal to treat Bipolar. [facility]23 Telephone encounter Note Can try cymbalta 30mg once daily [employer] 03-31-2023 Telephone encounter Note Call placed to patient to inform her of provider's response. Patient is also educated not to take medications that are prescribed to someone other than her. Patient voices that she is aware that she should not be taking medications prescribed to someone other than her. Merchandising Execution Associate reiterated this to patient. Patient's pharmacy was confirmed with her. Order pended for review and signature. [employer] 03-05-2023 Evaluation note Encounter Date Diagnosis Assessment [...] was counseling done by myself, Rhina ROBERTSON. [facility] Other 01-01-2024 Hospital Discharge instructions* Discharge Instructions* Sil Sullivan DO - 03/02/2023 7:49 PM EST Please follow-up with your GI doctor, trial enema at home, return to the ER for worsening abdominalpain, inability to pass gas, or nausea, vomiting * Attachments The following attachments cannot be sent through Care Everywhere. * Constipation (Brazilian) [facility] Miscellaneous Notes* Telephone Encounter - Argenis Storm [...] when she was under his care in [place]. She is currently taking Meloxicam that helps [...] She states whatever . [facility] encounter Note* Telephone Encounter - Argenis [...] when she was under his care in [place]. She is currently taking Meloxicam that helps [...] continues to want to speak with Dr. Sliver. Patient was advised if she is not happy with her care we can send her medical records to another pain management. Patient statesmaryann has been a patient of for many years and is happy with the injections and continues toask for the Ultram. Advised patient that we would route the requests to [facility] and add Dr. Silver on the note. PVU. [id number] Telephone encounter Note* Telephone Encounter - Pete Silver MD - 02/20/2023 10:04 AM EST Discussed with nurse, I agree with Fartun's treatment plan going forward. [employer]12-22-2023 Telephone encounter Note* Telephone Encounter - UMESH Hodge - 02/20/2023 10:04 AM EST No Rx for tramadol. I have never written prescription for bra so I would not know how to proceed with anything like that. [employer]12-22-2023 Telephone encounter Note* Telephone Encounter - Argenis Storm RN - 02/20/2023 10:04 AM EST Patient aware of response. She states whatever . [employer]12-20-2023 Evaluation note* Encounter Date Diagnosis Assessment Notes Treatment Notes Treatment Clinical Notes Jan, Constipation, unspecified constipation type (ICD-10 - K59.00) Jan, Constipation (ICD-10 - K59.00) [facility] Other 12-12-2023 Miscellaneous Notes* Telephone Encounter - [...] and has f[facility]u appt [facility] encounter Note* Telephone Encounter - Margaux Olea CST - 02/10/2023 8:18 AM EST Received denial letter for an SI Inj. It is noted in prior requests, the member's chronic pain is related to discogenic causes with improvement in symptoms with shots directed the discogenic disorder. It is not noted why the source of the chronic pain is now related to sacroiliac joint. [facility] [id number] Telephone encounter Note* Telephone Encounter - UMESH [...] sufficient reason to deny the current request. [facility] [id number] Telephone encounter Note* Telephone Encounter - Alfredito William - 02/10/2023 8:18 AM EST GOT APPROVAL [employer]12-12-2023 Telephone encounter Note* Telephone Encounter - Maty Fulton RN - 02/10/2023 8:18 AM EST Pt is scheduled 03/27 for procedure and [facility] f[facility] [id number] Evaluation note* Encounter Date Diagnosis Assessment Notes [...] R10.9) Jan, Rectal bleed (ICD-10 - K62.5) [facility] Other 11-16-2023 Evaluation note* Encounter Date Diagnosis [...] was counseling done by myself, Rhina ROBERTSON. [facility] Other 11-08-2023 Evaluation note* Encounter Date Diagnosis [...] HAVE PATIENT START DOCUSATE 3 CAPSULES DAILY. [facility] Other 06-29-2023 Evaluation note* Encounter Date Diagnosis Assessment Notes Treatment Notes Treatment Clinical Notes Jul, Obesity (ICD-10 - E66.9) Jul, BMI 34.0-34.9,adult (ICD-10 - Z68.34) Jul, Other Summary of Visi t: (A) discussed continuing to work on small goals until stress decreases and she has the energy to increase goals (B) discussed healhtier choices at [employer]- food blog reviewed (C) reviewed food storage tips for keeping produce fresh longer Patient set the following goals: - NEW: continue to choose sugar free beverages- not reviewed [facility] Other 05-30-2023 Evaluation note* Encounter Date Diagnosis [...] was counseling done by myself, Rhina ROBERTSON. [facility] Other 03-21-2023 Evaluation note* Encounter Date Diagnosis [...] was counseling done by myself, Rhina ROBERTSON. [facility] Other 02-07-2023 Evaluation note* Encounter Date Diagnosis [...] set the following goals: not reviewed today [facility] Other 02-07-2023 Evaluation note* Encounter Date Diagnosis [...] was counseling done by myself, Rhina ROBERTSON. [facility] Other 12-28-2022 Evaluation note* Encounter Date Diagnosis [...] patient set personal goal using given handout. [facility] Other 12-27-2022 Evaluation note* Encounter Date Diagnosis [...] was counseling done by myself, Rhina ROBERTSON. [facility] Other 12-01-2022 NotePROCEDURE: XR ANKLE LT MIN [...] Electronically authenticated by: ONEL CLARK Date: 2022-01-29 22:30[facility]12-01-2022 NotePROCEDURE: XR ANKLE LT MIN 3 V, [...] Electronically authenticated by: ONEL CLARK Date: 2022-01-29 22:30[facility]11-15-2022 Evaluation note* Encounter Date Diagnosis Assessment Notes [...] was counseling done by myself, Rhina ROBERTSON. [facility] Other 10-05-2022 Evaluation note* Encounter Date Diagnosis [...] was counseling done by myself, Rhina ROBERTSON. [facility] Other 08-30-2022 Evaluation note* Encounter Date Diagnosis Assessment Notes Treatment Notes Treatment Clinical Notes Sep, Fatty liver (ICD-10 - K76.0) ENCOURAGED WEIGHT LOSS Sep, Obesity (BMI 30-39.9) (ICD-10 - E66.9) [facility] Other 08-23-2022 Hospital Discharge instructions* Discharge Instructions* Stanley Almonte PA-C - 10/22/2021 2:03 PM EDT Follow-up with primary care doctor 7 to 10 days for reevaluation. Take Motrin 800 mg as directed with food. Start eardrops left ear as directed. Promptly return to emergency department for new, changing or worsening of symptoms or other concerns. [facility] [employer] Work Phone: evaluation + Plan note No data available for this section [facility]* Diagnosis Pilonidal cyst- Primary Pilonidal cyst without mention of abscess documented in this encounter [facility] [employer] Phone: evaluation note* Diagnosis Acute diffuse otitis externa of left ear- Primary documented in this encounter [facility] [employer] Work Phone: evaluation noteNo [facility] [employer] Other Evaluation note* Diagnosis Constipation, unspecified constipation type- Primary documented in this encounter [facility] noteNo assessment information available [facility] Work Phone: Evaluation note* Diagnosis Closed head injury, initial encounter- Primary Fall due to slipping on ice or snow, initial encounter Acute cervical myofascial strain, initial encounter documented in this encounter [facility]* Diagnosis Lumbosacral spondylosis without myelopathy- Primary [facility]* Diagnosis Mass of upper outer quadrant of right breast- Primary Abnormal mammogram Abnormal mammogram, unspecified Symptomatic mammary hypertrophy documented [facility] this encounter [facility]History general Narrative - Reported* Type Description Date Medical History PTSD Medical History DIVERTICULITOUS Surgical History 2 BACK INJECTIONS 2014 Surgical History LEFT ANKLE 2002 Surgical History CHOLECYSTECTOMY Hospitalization History SEE ABOVE [facility] Other [employer] general Narrative - Reported* Type Description Date Medical History PTSD Medical History DIVERTICULITOUS Medical History bipolar Medical History ADHD Surgical History 2 BACK INJECTIONS 2015 Surgical History LEFT ANKLE 2002 Surgical History CHOLECYSTECTOMY Surgical History nasal surgery Hospitalization History SEE ABOVE [facility] Other [facility] general Narrative - Reported* Type Description Date Medical History PTSD Medical History DIVERTICULITOUS Medical History bipolar Medical History ADHD Surgical History 2 BACK INJECTIONS 2014 Surgical History LEFT ANKLE 2002 Surgical History CHOLECYSTECTOMY Surgical History nasal surgery Surgical History right Rotator surgery 05-15-22 Hospitalization History SEE ABOVE [facility] Other [facility] general Narrative - Reported* Type Description Date Medical History PTSD Medical History DIVERTICULITOUS Medical History bipolar Medical History ADHD Medical History rotator cuff tear Surgical History 2 BACK INJECTIONS 2014 Surgical History LEFT ANKLE 2002 Surgical History CHOLECYSTECTOMY Surgical History nasal surgery Surgical History right Rotator surgery 05-15-22 Hospitalization History SEE ABOVE MAZ Other [facility] general Narrative - Reported* Type Description Date Medical History PTSD Medical History DIVERTICULITOUS Medical History bipolar Medical History ADHD Medical History rotator cuff tear Surgical History 2 BACK INJECTIONS 2014 Surgical History LEFT ANKLE 2002 Surgical History CHOLECYSTECTOMY Surgical History nasal surgery Surgical History right Rotator surgery 05-15-22 Surgical History Neck injections/root burnt 12/31 Hospitalization History SEE ABOVE MAZ Other Hisjyqn general Narrative - Reported* Type Description Date Medical History PTSD Medical History DIVERTICULITOUS Medical History bipolar Medical History ADHD Medical History rotator cuff tear Surgical History 2 BACK INJECTIONS 2014 Surgical History LEFT ANKLE 2002 Surgical History CHOLECYSTECTOMY Surgical History nasal surgery Surgical History right Rotator surgery 05-15-22 Surgical History Neck injections/root burnt 12/31 Hospitalization History SEE ABOVE Hospitalization History [facility] onstipation 03-02-2023 [facility] Other Hospital Discharge instructions* Attachments The following attachments cannot be sent through Care Everywhere. * Pilonidal Abscess (Brazilian) documented in this encounterBON [employer] [facility] Work Phone: Hospital Discharge instructions No data available for this section [facility] HospitalInstructionsNot on filedocumented in this encounter [facility]ructionsNot on filedocumented in this encounter [facility] SystemInstructionsNot on filedocumented in this encounter [facility] SystemInstructionsNot on filedocumented in this encounter [facility] [email or web address] SystemInstructionsNot on filedocumented in this encounter [facility] [email or web address] SystemProgress note No data available for this section [facility] HospitalReason for visit Narrative* Consultation (Routine) - Pending Review Specialty Diagnoses / Procedures Referred By Contwilliam t Referred To Contact Breast Surgery Diagnoses Abnormal mammogram Carmen Fisher MD [address] [place] [id number] Ila Trevizo MD [address] [place] [id number] Referral ID Status Reason Start Date Expiration Date V isits Requested Visits Authorized [id number] Pending Review 05/06/2023 05/05/2024 1 1 [employer] Summary Purpose Family History Relationship Condition Age at Onset Recorded Date/T basia father Diabetes mellitus Unknown Heart disease Unknown Not Specified Diabetes mellitus Unknown Advance Directives Latest Code Status on File Code Status [...] First Name Yo Referring Provider Last Name Saralaurence Referring Provider Specialty Gastroenter ology Referred Organization [...] [employer]AN[employer]: left L45 [address] PA [address], [address] [place] [address] Referral ID Status Reason Start Date Expiration Date V isits Requested Visits Authorized [id number] Pending Review 04/28/2023 04/27/2024 1 1 Chief Complaint and Reason for Visit Chief Complaint Obesity Abdominal Pain, Rectal Bleeding Additional Source Comments INFORMATION SOURCE (unrecogn ized section and content) DATE CREATED AUTHOR 08/26/2017 [facility] DATE CREATED AUTHOR AUTHOR'S ORGANIZ ATION 05/30/2022 [facility] DATE CREATED AUTHOR AUTHOR'S ORGANIZ ATION 01/18/2023 [facility] DATE CREATED AUTHOR AUTHOR'S ORGANIZ ATION 03/29/2023 [facility] DATE CREATED AUTHOR AUTHOR'S ORGANIZ ATION 04/18/2023 [facility] DATE CREATED AUTHOR AUTHOR'S ORGANIZ ATION 05/26/2023 [facility] DATE CREATED AUTHOR AUTHOR'S ORGANIZ ATION 06/03/2023 [facility] DATE CREATED AUTHOR AUTHOR'S ORGANIZ ATION 06/04/2023 [facility] DATE CREATED AUTHOR AUTHOR'S ORGANIZ ATION [facility] for Visit (unrecogniz ed section and [...] Dispensed Refills Start Date End Da te zqulwphg-kmmnbbtgb-kknbqb ortisone (CORTISPORIN) 3.5-81976-[address] 4 drops into the [...] 30 mg, IntraMUSCular, ONCE, 1 dose, On 04/20/23 at 1400, Do not administer for more than 5 days. 1356 (Given - Provid er: Ericka Weller RN) orphenadrine (NORFLEX) injection 60 mg (COMPLETED) 60 mg, IntraMUSCular, ONCE, 1 dose, On Thu04/20/23 at 1400 1357 (Given - Provid er: Ericka Weller RN) Care Teams (unrecognized sec tion and content) 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 Start Date End Date Shawna Mcfadden DO [address] [place] [address] PCP - General Family Medicine 10/12/21 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 Start Date End Date Shawna Mcfadden DO [address] [place] [address] PCP - General Family Medicine 10/12/21 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 Start Date End Date Shawna Mcfadden DO [address] [place] [address] PCP - General Family Medicine 10/12/21 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 Start Date End Date Shawna Mcfadden DO [address] [place] [address] PCP - General Family Medicine 05/02/22 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 Start Date End Date Shawna Mcfadden DO [address] [place] [address] PCP - General Family Medicine 10/12/21 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 Start Date End Date Shawna Mcfadden DO [address] [place] [address] PCP - General Family Medicine 05/02/22 Team [...] Care Provider Active Start: March 18, 2023 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 Start Date End Date Shawna Mcfadden DO [address] [place] [address] PCP - General Family Medicine 05/02/22 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 Start Date End Date Shawna Mcfadden DO [address] [place] [place] [address] PCP - General Family Medicine 10/12/21 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 Start Date End Date Shawna Mcfadden DO [address] [place] [address] PCP - General Family Medicine 05/02/22 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 [facility]. provides no warranty or guarantee of the accuracy or completeness of information in this document.
[2023-07-21 15:13] LABS: Basophils Percent Auto 0.1 % (0.2-2.0); Hematocrit 45.4 % (36.0-48.0); Hemoglobin 14.7 g/dL (12.0-16.0); Immature Granulocytes Abs Auto 0.09 10^3/uL (0.00-0.03); Immature Granulocytes Pct Auto 0.7 % (0.0-0.5); Lymphocytes Absolute Auto 0.9 10^3/uL (1.2-3.8); Lymphocytes Percent Auto 6.7 % (20.5-60.0); Mean Corpuscular HGB Conc 32.4 g/dL (29.9-35.2); Mean Corpuscular Hemoglobin 28.2 pg (26.7-34.0); Mean Platelet Volume 10.7 fL (9.5-13.5); Monocytes Absolute Auto 0.1 10^3/uL (0.3-0.8); Monocytes Percent Auto 0.9 % (1.7-12.0); Neutrophils Absolute Auto 12.5 10^3/uL (1.4-6.5); Neutrophils Percent Auto 91.6 % (43.0-75.0); Platelet Count 340 10^3/uL (150-450); Red Blood Count 5.22 10^6/uL (4.20-5.40); Red Cell Distribution Width 13.3 % (11.0-15.0); White Blood Count 13.6 10^3/uL (4.0-11.0)
[2023-07-21 15:49] LABS: Percent Iron Saturation 30.2 %
== END 2023-07-21 14:32 | disposition home or self-care (01) ==
LOC: LAB 14:33
PROVIDERS: PCP Nurse Practitioner; Visit Provider Internal Medicine Hematology & Oncology
DX: D64.9 Anemia, unspecified (principal); D50.9 Iron deficiency anemia, unspecified; K90.9 Intestinal malabsorption, unspecified; Z15.09 Genetic susceptibility to other malignant neoplasm
CPT/HCPCS: 36415; 82728; 83540; 83550; 85025

== ENCOUNTER 2023-07-28 07:32 | Outpatient (RCR) | payer OTHER, SELFPAY | END 2023-07-31 23:59 | disposition home or self-care (01) | LOC: INF 07:32 | PROVIDERS: PCP Nurse Practitioner; Visit Provider Internal Medicine Hematology & Oncology | DX: D50.9 Iron deficiency anemia, unspecified (principal); K90.9 Intestinal malabsorption, unspecified; Z15.09 Genetic susceptibility to other malignant neoplasm; D64.9 Anemia, unspecified | CPT/HCPCS: G0463 ==

== ENCOUNTER 2023-08-18 10:25 | Outpatient (RCR) | payer OTHER, SELFPAY ==
[2023-08-18 16:56] LABS: Basophils Percent Auto 0.4 % (0.2-2.0); Eosinophils Absolute Auto 0.1 10^3/uL (0.0-0.7); Eosinophils Percent Auto 1.2 % (0.9-7.0); Hematocrit 41.3 % (36.0-48.0); Hemoglobin 13.3 g/dL (12.0-16.0); Immature Granulocytes Abs Auto 0.03 10^3/uL (0.00-0.03); Immature Granulocytes Pct Auto 0.4 % (0.0-0.5); Lymphocytes Absolute Auto 2.3 10^3/uL (1.2-3.8); Lymphocytes Percent Auto 27.4 % (20.5-60.0); Mean Corpuscular HGB Conc 32.2 g/dL (29.9-35.2); Mean Corpuscular Volume 86.9 fL (81.0-99.0); Mean Platelet Volume 10.7 fL (9.5-13.5); Monocytes Absolute Auto 0.6 10^3/uL (0.3-0.8); Monocytes Percent Auto 7.3 % (1.7-12.0); Neutrophils Absolute Auto 5.2 10^3/uL (1.4-6.5); Neutrophils Percent Auto 63.3 % (43.0-75.0); Platelet Count 314 10^3/uL (150-450); Red Blood Count 4.75 10^6/uL (4.20-5.40); Red Cell Distribution Width 13.5 % (11.0-15.0); White Blood Count 8.3 10^3/uL (4.0-11.0)
[2023-08-18 17:28] LABS: Thyroid Stimulating Hormone 0.538 uIU/mL (0.358-3.740)
[2023-08-18 17:39] LABS: Free T4 0.74 ng/dL (0.76-1.46)
== END 2023-08-28 10:50 | disposition home or self-care (01) ==
LOC: INF 10:25
PROVIDERS: PCP Nurse Practitioner; Visit Provider Internal Medicine Hematology & Oncology
DX: D64.9 Anemia, unspecified (principal); D50.9 Iron deficiency anemia, unspecified; K90.9 Intestinal malabsorption, unspecified; Z15.09 Genetic susceptibility to other malignant neoplasm
CPT/HCPCS: 36415; 82607; 82746; 84439; 84443; 85025

== ENCOUNTER 2023-09-29 07:37 | Outpatient (RCR) | payer OTHER, SELFPAY ==
[2023-09-29 09:58] LABS: Basophils Percent Auto 0.4 % (0.2-2.0); Eosinophils Absolute Auto 0.1 10^3/uL (0.0-0.7); Eosinophils Percent Auto 1.4 % (0.9-7.0); Hematocrit 45.4 % (36.0-48.0); Hemoglobin 14.6 g/dL (12.0-16.0); Immature Granulocytes Abs Auto 0.02 10^3/uL (0.00-0.03); Immature Granulocytes Pct Auto 0.2 % (0.0-0.5); Lymphocytes Absolute Auto 2.3 10^3/uL (1.2-3.8); Lymphocytes Percent Auto 26.7 % (20.5-60.0); Mean Corpuscular HGB Conc 32.2 g/dL (29.9-35.2); Mean Corpuscular Hemoglobin 28.4 pg (26.7-34.0); Mean Corpuscular Volume 88.3 fL (81.0-99.0); Mean Platelet Volume 10.9 fL (9.5-13.5); Monocytes Absolute Auto 0.7 10^3/uL (0.3-0.8); Monocytes Percent Auto 7.7 % (1.7-12.0); Neutrophils Absolute Auto 5.4 10^3/uL (1.4-6.5); Neutrophils Percent Auto 63.6 % (43.0-75.0); Platelet Count 327 10^3/uL (150-450); Red Blood Count 5.14 10^6/uL (4.20-5.40); Red Cell Distribution Width 13.7 % (11.0-15.0); White Blood Count 8.4 10^3/uL (4.0-11.0)
[2023-09-29 10:13] LABS: Thyroid Stimulating Hormone 1.075 uIU/mL (0.358-3.740)
[2023-09-29 10:30] LABS: Percent Iron Saturation 18.5 %
[2023-09-29 11:03] LABS: Free T4 0.81 ng/dL (0.76-1.46)
== END 2023-09-30 23:59 | disposition home or self-care (01) ==
LOC: HEMC 07:37
PROVIDERS: PCP Nurse Practitioner; Visit Provider Internal Medicine Hematology & Oncology
DX: D50.9 Iron deficiency anemia, unspecified (principal); K90.9 Intestinal malabsorption, unspecified; Z15.09 Genetic susceptibility to other malignant neoplasm; D64.9 Anemia, unspecified; M79.10 Myalgia, unspecified site
CPT/HCPCS: 36415; 82306; 82607; 82728; 83540; 83550; 84439; 84443; 85025; G0463

== ENCOUNTER 2023-10-02 08:06 | Outpatient (RCR) | payer OTHER, SELFPAY | END 2023-10-05 17:13 | disposition home or self-care (01) | LOC: OT 08:06 | PROVIDERS: PCP Nurse Practitioner; Visit Provider Nurse Practitioner | DX: M54.9 Dorsalgia, unspecified (principal); G89.29 Other chronic pain | CPT/HCPCS: 97750 ==

== ENCOUNTER 2023-10-10 08:22 | Emergency (ER) | payer OTHER, SELFPAY ==
[2023-10-10 08:27] VITALS: BP 134/99; PULSE 91; TEMP 36.6; O2SAT 100; BMI 36.0
[2023-10-10 08:34] VITALS: O2SAT 100
[2023-10-10] MEDS: KETOROLAC TROMETHAMINE 60 MG/2 ML VIAL IM (08:59)
--- OUTSIDE RECORDS SUMMARY | 2023-10-10 09:00 | XMS_ITS | CCD ---
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 Name Role Phone Juan Ramon Jean Unavailable Unavailable Wiraúl, Juan Ramon Unavailable Unavailable DOMENICA OLIVA Unavailable Unavailable Shwana Mcfadden DO Primary Care Provider Yo Blank [...] Provider Shawna Mcfadden DO Primary Care Provider MD Yo Blank Attending Provider DO Shawna Mcfadden Primary Care Provider DEEPIKA ROBLEDO Attending Unavailable JORGE, CARMEN Referring Unavailable RUMSCHLAG, SHAWNA K Primary Care Unavailable RUMSCHLAG, SHAWNA K Referring Unavailable RUMSCHLAG, SHAWNA K Primary Care Unavailable RUMSCHLAG, SHAWNA K Referring Unavailable RUMSCHLAG, SHAWNA K Primary Care Unavailable NON STAFF Primary Care Unavailable Yo Blank Attending Unavailable Yo Blank Admitting Unavailable Rumschlag, Shawna Primary Care Unavailable Yo Blank Attending Unavailable Yo Blank Admitting Unavailable Myrtle Cerna Admitting Unavailable Shammo, Rory T Primary Care Unavailable Myrtle Cerna Attending Unavailable LULY ENGLISH Attending Unavailable GABY JUNE Attending Unavailable ALICIA PRESTON Attending Unavailable LAILA LIEBERMAN Attending Unavailable [facility] Primary Care Unava ilable SHAMMO, RORY Referring Unavailable RUMSCHLAG, SHAWNA K Primary Care Unavailable SHAMMO, RORY Referring Unavailable RUMSCHLAG, SHAWNA K Primary Care Unavailable PETE SILVER Attending Unavailable PETE SILVER Referring Unavailable RUMSCHLAG, SHAWNA K Primary Care Unavailable PETE SILVER Admitting Unavailable PETE SILVER Attending Unavailable RUMSCHLAG, SHAWNA K Referring Unavailable RUMSCHLAG, SHAWNA K Primary Care Unavailable GAURAV SELLERS Attending Unavailable RUMSCHLAG, SHAWNA K Referring Unavailable RUMSCHLAG, SHAWNA K Primary Care Unavailable RUMSCHLAG, SHAWNA Primary Care Unavailable RUMSCHLAG, SHAWNA Referring Unavailable RUMSCHLAG, SHAWNA Primary Care Unavailable RUMSCHLAG, SHAWNA Referring Unavailable RUMSCHLAG, SHAWNA Primary Care Unavailable RUMSCHLAG, SHAWNA Referring Unavailable RUMSCHLAG, SHAWNA Primary Care Unavailable RUMSCHLAG, SHAWNA Referring Unavailable RUMSCHLAG, SHAWNA Primary Care Unavailable RUMSCHLAG, SHAWNA Referring Unavailable SIL SULLIVAN Attending Unavailable RUMSCHLAG, SHAWNA Primary Care Unavailable NAVEEN SANCHEZ Unavailable RUMSCHLAG, SHAWNA Primary Care Unavailable RUMSCHLAG, [...] Primary Care Unavailable RUMSCHLAG, SHAWNA Referring Unavailable RAY, NAVEEN Attending Unavailable RUMSCHLAG, SHAWNA Primary Care Unavailable [...] Primary Care Unavailable RUMSCHLAG, SHAWNA Referring Unavailable Allergies Allergy Classification Reported Allergen(s) Allergy Type Date of Onset Reaction(s) Facility Cephalosporins (antibiotic) (2 sources) Cephalexin Drug Allergy 7 [facility] Serotonin Reuptake Inhibitors (SSRIs) (2 sources) Citalopram Drug Allergy 7 [facility] (20 sources) cephalexin; Translations: [Keflex] Drug Allergy 3 [facility] Repository (4 sources) citalopram; Translations: [CeleXA] Drug Allergy 3 AOF, heart palpitation [facility] Repository (20 sources) Cephalexin; Translations: [CEPHALEXIN] Drug Allergy 7 [facility] Work Phone: (20 sources) Citalopram; Translations: [CITALOPRAM] Drug Allergy 7 Hives, anaphylaxis [employer] (5 sources) metFORMIN Drug Allergy Unknown [employer] Other (20 sources) metFORMIN; Translations: [METFORMIN] Drug Allergy 3 Unknown, Unknown Reaction Evomail (10 sources) POISON DEVORAH EXTRACT; Translations: [POISON DEVORAH EXTRACT] Drug Allergy 3 [employer] (7 sources) Metformin And Related Propensity to adverse reactions to drug 4 Other (See Comments) [employer] (1 source) Cephalexin Drug Allergy 4 [facility] Repository (1 source) Citalopram Drug Allergy 4 [facility] Repository (1 source) metFORMIN Drug Allergy 4 [facility] Repository Medications Current Medications Medication Drug Class(es) Dates Sig (Normalized) Sig (Original) [id number] 200 actuat albuterol 0.09 mg/actuat metered dose [...] fruit juices. Orally Once a day Active bifidobacterium infantis 4 mg oral capsule (13 sources) Start: 01-08-20 take 1 capsule by mouth once daily Bifidobacterium Infantis (Align) 4 mg capsule Active 4 MG PO Daily April 29, 2023 1:00am blood-glucose meter (TRUE METRIX GLUCOSE METER) [facility] (7 sources) Start: 06-18-19 blood-glucose meter (TRUE METRIX GLUCOSE METER) [facility] use to test BLOOD SUGAR TWICE DAILY 1 each 0 06/17/2018 Active cetirizine hydrochloride 10 mg oral tablet (16 sources) Histamine-1 Receptor Antagonist Start: 02-06-20 20 take 1 tablet by mouth once daily cetirizine (ZyrTEC) 10 mg tablet TAKE 1 TABLET BY MOUTH DAILY 30 tablet 5 02/06/2020 Active cholecalciferol 0.05 mg oral capsule (16 sources) Vitamin D Start: 05-21-19 take 2000 [IU] by mouth once daily Cholecalciferol (Vitamin D3) Active 2000 UNIT PO Daily May 21, 2023 12:00am Start: 04-09-2021 take 1 capsule by mo [facility] in the morning cholecalciferol, vitamin D3, 2,000 units capsule Take 1 capsule (2,000 Units total) by mouth in the morning. 0 04/09/2021 Active take 1 capsule by mo ut every twenty-four hours Vitamin D3 50 MCG [...] mg docusate sodium 100 mg oral capsule (11 sources) Start: 01-07-2023 take 100 mg by mouth three times daily Docusate Sodium Active 100 MG PO Three times daily 90 April 29, 2023 1:00am Start: 01-07-2023 take 3 capsules by m outh every twenty-four hours Docusate Sodium 100 MG 3 CAPSULES Orally Once a day for 30 days Dec, Active trulicity 3 mg/0.5ml solution pen-injector (8 sources) GLP-1 Receptor Agonist Trulicity 3 MG/0.5ML as directed Subcutaneous WEEKLY Active DULoxetine 30 mg oral tablet (7 sources) Serotonin and Norepinephrine Reuptake Inhibitor Start: 05-21-19 take 30 mg by mouth once daily Duloxetine Active 30 MG PO Daily May 21, 2023 12:00am Start: 03-31-2023 End: 04-30-2023 take 1 capsule by mouth in the morning DULoxetine (CYMBALTA) 30 mg capsule Take 1 capsule (30 mg total) by mouth in the morning. 30 capsule 3 04/30/2023 Active empagliflozin 25 mg oral tablet (20 sources) Sodium-Glucose Cotransporter 2 Inhibitor Start: 05-20-2023 take 1 tablet by mouth once daily Empagliflozin (Jardiance) 25 mg tablet Active 25 MG PO Daily May 20, 2023 12:00am etonogestrel 68 mg drug implant (20 sources) Progestin Start: 10-14-2018 Nexplanon 68 mg subcutaneous implant Refills(s) 0 Start Date: 10/14/18 Status: Ordered etonogestreL (NE XPLANON) 68 mg implant 1 each (68 mg total) by subdermal route once. 0 Active Etonogestrel (Nexplanon) 68 mg implant (1 source) Start: 05-20-2023 Etonogestrel (Nexplanon) 68 mg implant Active 68 MG SUBDERMAL As Directed May 20, 2023 12:00am famotidine 40 mg oral tablet (20 sources) Histamine-2 Receptor Antagonist Start: 05-20-2023 take 40 mg by mouth once daily Famotidine Active 40 MG PO Daily May 20, 2023 12:00am Start: 10-14-2018 take 1 tablet by elan th twice daily famotidine (PEPCID) 20 mg tablet TAKE 1 TABLET BY MOUTH TWICE DAILY 60 tablet 5 04/09/2020 Active take 1 tablet by elan th every twenty-four hours Pepcid 40 MG 1 tablet Orally Once a day Active ferrous sulfate 325 mg oral tablet (18 sources) Start: 04-09-2020 take 1 tablet by mouth once daily ferrous sulfate 325 (65 FE) mg tablet TAKE 1 TABLET BY MOUTH DAILY 30 tablet 5 04/09/2020 Active fexofenadine hydrochloride 180 mg oral tablet (14 sources) Histamine-1 Receptor Antagonist Start: 05-21-2023 take 180 mg by mouth once daily Fexofenadine Active 180 MG PO Daily May 21, 2023 12:00am take 1 tablet by mouth in the [...] sources) Serotonin Reuptake Inhibitor Start: 07-14-2019 take 40 mg by mouth once daily Fluoxetine Active 40 MG PO Daily May 20, 2023 12:00am take 3 capsules by mouth once da [...] oral capsule (20 sources) Anti-epileptic Agent Start: 05-21-2023 take 300 mg by mouth twice daily Gabapentin Active 300 MG PO Twice daily May 21, 2023 10:21am Start: 10-14-2018 End: 05-21-2023 take 100 mg by mouth twice daily Gabapentin Discontinu ed 100 MG PO Twice daily May 20, 2023 12:00am May 21, 2023 10:34am take 2 capsules by m outh every twenty-four hours Gabapentin 100 MG 2 CAPSULES Orally Once a day Active hydrocortisone 10 mg/ml / neomycin 3.5 mg/ml / polymyxin b 44091 unt/ml otic solution (1 source) Aminoglycoside Antibacterial, Polymyxin-class Antibacterial, Corticosteroid Start: 10-22-2021 End: 10-29-2021 [id number]-[id number]-[id number] isone (CORTISPORIN) 3.5-14746-[address] 4 drops into the left ear 3 times daily for 7 days Instill into left Ear TID x 7 days 10 mL 0 10/22/2021 10/29/2021 Active hydrOXYzine hydrochloride 25 mg oral tablet (11 sources) Antihistamine Start: 10-21-2017 take 1 tablet [...] Mood Stabilizer, Anti-epileptic Agent Start: 02-13-2019 take 200 mg by mouth once daily Lamotrigine Active 200 MG PO Daily May 20, 2023 12:00am linaclotide 0.29 mg oral capsule (1 source) Guanylate Cyclase-C Agonist Start: 05-21-2023 take 1 capsule by mouth once daily in the morning Linaclotide (Linzess) 290 mcg capsule Active 290 MCG PO Every morning May 21, 2023 12:00am 3 ml liraglutide 6 mg/ml pen injector (1 source) GLP-1 Receptor Agonist Start: 05-21-2023 Liraglutide (Victoza 2-Ramon) 0.6 mg/0.1 mL (18 mg/3 mL) pen injector Active MG SUBCUT May 21, 2023 12:00am lisdexamfetamine dimesylate 70 mg oral capsule (20 sources) Central Nervous System Stimulant Start: 01-09-2022 take 70 mg by mouth once daily Lisdexamfetamine Active 70 MG PO Daily May 20, 2023 12:00am lurasidone hydrochloride 80 mg oral tablet (20 sources) Atypical Antipsychotic Start: 01-19-2020 take 80 mg by mouth once daily Lurasidone Active 80 MG PO Daily May 20, 2023 12:00am meloxicam 15 mg oral tablet (18 sources) Nonsteroidal Anti-inflammatory Drug Start: 05-21-2023 take 30 mg by mouth once daily Meloxicam Active 30 MG PO Daily May 21, 2023 12:00am take 1 tablet by elan th every twenty-four hours Meloxicam 15 MG 1 tablet Orally Once a d ay Not-Taking/PRN 10 ml methocarbamol 100 mg/ml injection (12 sources) Muscle Relaxant Start: 10-14-2018 Robaxin 100 mg /mL inj Refills(s) 0 Start Date: 10/14/18 Status: [...] MOUTH NIGHTLY 30 tablet 0 07/16/2020 Active egbqhvpu-mofc-FI-ca lcium &mins (THERAGRAN-M) 9 mg iron-400 mcg tablet (7 sources) [id number]-[id number]-[place] -c alcium &mins (THERAGRAN-M) 9 mg iron-400 mcg tablet Take 1 tablet by mouth in the morning. 0 Active Multivitamin preparation (20 sources) Multivitamin Active Multivitamin With Folic Acid (Daily-Karely (With Folic Acid)) 400 mcg tablet (1 source) Start: 05-20-2023 Multivitamin With Folic Acid (Daily-Karely (With Folic Acid)) 400 mcg tablet Active TAB PO May 20, 2023 12:00am naproxen 500 mg oral tablet (20 sources) [...] omeprazole 20 mg delayed release oral capsule (11 sources) Proton Pump Inhibitor take 2 capsules by mouth once daily omeprazole (PRILOSEC) 20 MG delayed release capsule Take 40 mg by mouth daily 0 Active pioglitazone 30 mg oral tablet (20 sources) Peroxisome Proliferator Receptor alpha Agonist, Peroxisome Proliferator Receptor gamma Agonist, Thiazolidinedione Start: 021 take 30 mg by mouth once daily Pioglitazone Active 30 MG PO Daily May 20, 2023 12:00am plecanatide 3 mg oral tablet (5 sources) Start: 023 take 1 tablet by mouth in the morning TRULANCE 3 mg tablet Take 1 tablet by mouth in the morning. 0 02/27/2023 Active Start: 02-05-2023 take 1 tablet by elan th every twenty-four hours Trulance 3 MG 1 tablet Orally Once a day for 30 days Jan, Active polyethylene glycol 3350 [id number] mg / potassium chloride 2970 mg / sodium bicarbonate 6740 mg / sodium chloride 5860 mg / sodium sulfate 43117 mg powder for oral solution (2 sources) [...] Nausea, # 20 tab(s), Refills(s) 0, Pharmacy: [id number], 157, cm, 03/10/19 12:21:00 EST, Height/Length Measured, 100.7, kg, 03/10/19 12:21:00 EST, Weight Measured Start Date: 06/13/19 Status: Ordered rizatriptan 10 mg oral tablet (20 sources) Serotonin-1b and Serotonin-1d Receptor Agonist Start: 01-16-2019 Rizatriptan (Maxalt) 10 mg tablet Active 10 MG PO . NEEDED May 20, 2023 12:00am Maxalt 10 MG 1 t ablet Orally as needed Active rosuvastatin 10 mg oral capsule (20 sources) HMG-CoA Reductase Inhibitor Start: 03-20-2024 take 10 mg by mouth once daily Rosuvastatin Active 10 MG PO Daily May 20, 2023 12:00am take 1 tablet by mouth in the mo rning rosuvastatin (CRESTOR) 20 mg tablet Take 1 [...] sources) Serotonin-1b and Serotonin-1d Receptor Agonist Start: 05-20-2023 take 100 mg by mouth twice daily Sumatriptan Succinate Active 100 MG PO Twice daily May 20, 2023 12:00am Start: 11-03-2018 take 1 tablet by elan th every two hours, then take 2 tablets [...] day Active temazepam 15 mg oral capsule (11 sources) Benzodiazepine take 1 capsule by mouth once daily as needed for sleep temazepam (RESTORIL) 15 MG capsule Take 15 mg by mouth nightly as needed for Sleep 0 Active tiZANidine 4 mg oral tablet (20 sources) Central alpha-2 Adrenergic Agonist Start: take 8 mg by mouth once daily at bedtime Tizanidine Active 8 MG PO Daily at bedtime May 21, 2023 10:24am Start: 05-20-2023 End: 05-21-2023 take 4 mg by mouth once daily at bedtime Tizanidine Discontinued 4 MG PO Daily at bedtime May 20, 2023 12:00am May 21, 2023 10:34am Start: 05-08-2021 tiZANidine (ZA NAFLEX) 4 mg tablet Start: 10-14-2018 tizanidine 4 m g oral capsule Refills(s) 0 Start Date: 10/14/18 Status: Ordered take 2 tablets by mo [facility] every twenty-four hours tiZANidine HCl 4 MG 2 tablet Orally daily Active take 1 tablet by elan every twelve hours tiZANidine HCl 4 MG 1 tablet Orally TWICE A DAY Active topiramate 200 mg oral tablet (11 sources) take 1 tablet by mouth once daily topiramate (TOPAMAX) 200 MG tablet Take 200 mg by mouth daily 0 Active traMADol hydrochloride 50 mg oral tablet (12 sources) Opioid Agonist Start: 05-20-2023 take 50 mg by mouth once daily Tramadol Active 50 MG PO Daily May 20, 2023 12:00am Ultram Active Trulance 3 MG (1 source) Start: 02-05-2023 take 1 tablet by mouth once daily Trulance 3 MG 1 tablet Orally Once a day for 30 days Jan, Active TRULICITY 3 mg/0.5 mL pen injector (7 sources) Start: 10-15-2022 TRULICITY 3 mg /0.5 mL pen injector Injects on Sundays 0 [...] D Active zonisamide 100 mg oral capsule (11 sources) Anti-epileptic Agent take 1 capsule by mouth once daily zonisamide (ZONEGRAN) 100 MG capsule Take 100 mg by mouth daily 0 Active Completed/Discontinued Medications Medication Drug Class(es) Dates Sig (Normalized) Sig (Original) ascorbic acid 500 mg oral tablet (13 sources) Vitamin C Start: 05-20-2023 End: 05-21-2023 take 1 tablet by mouth once daily Ascorbic Acid (Vitamin C) (Vitamin C) 500 mg tablet Discontinued 500 MG PO Daily May 20, 2023 12:00am May 21, 2023 10:34am Start: 02-24-2023 take 1 tablet by elan th twice daily Ascorbic Acid (Vitamin C) (Vitamin C) 500 mg tablet Active 500 MG PO Twice daily May 21, 2023 10:20am Dulaglutide (Trulicity) 3 mg/0.5 mL pen injector (1 source) Start: 05-20-2023 End: 05-21-2023 Dulaglutide (Trulicity) 3 mg /0.5 mL pen injector Discontinued MG SUBCUT May 20, 2023 12:00am May 21, 2023 10:20am Iron (20 sources) Iron Not-Taking/ PRN Iron Not-Taking Iron Active 1 ml ketorolac tromethamine 30 mg/ml cartridge (1 source) Nonsteroidal Anti-inflammatory Drug, Cyclooxygenase Inhibitor Start: 04-20-2023 End: 04-20-2023 ketorolac (TORADOL) injection 30 mg Start: 04-20-2023 End: 04-20-2023 ketorolac (TORADOL) injectio n 30 mg ondansetron 4 mg disintegrating oral tablet (1 source) Serotonin-3 Receptor Antagonist Start: 10-12-2021 End: 10-12-2021 ondansetron (ZOFRAN-ODT) disintegrating tablet 4 mg 2 ml orphenadrine citrate 30 mg/ml injection (1 source) Muscle Relaxant Start: 04-20-2023 End: 04-20-2023 orphenadrine (NORFLEX) injection 60 mg Start: 04-20-2023 End: 04-20-2023 orphenadrine (NORFLEX) injec tion 60 mg Ozempic (0.25 or 0.5 MG/DOSE ) 2 MG/1.5ML (8 sources) Ozempic (0.25 or 0.5 MG/DOSE) 2 MG/1.5ML as directed Subcutaneous Not-Taking/PRN Ozempic (0.25 or 0.5 MG/DOSE) 2 MG/1.5ML as directed Subcutaneous Not-Taking Plecanatide (Trulance) 3 mg tablet (1 source) Start: 05-21-2023 End: 05-21-2023 take 1 tablet by mouth once daily Plecanatide (Trulance) 3 mg tablet Discontinued 3 MG PO Daily May 21, 2023 12:00am May 21, 2023 11:36am polyethylene glycol 3350 88526 mg powder for oral solution (7 sources) [...] a day for 30 days Jan, Active traZODone hydrochloride 50 mg oral tablet (20 sources) Serotonin Reuptake Inhibitor Start: 04-17-2020 End: 05-21-2023 take 50 mg by mouth once daily at bedtime Trazodone Discontinued 50 MG PO Daily at bedtime May 20, 2023 12:00am May 21, 2023 10:34am vitamin B12 (20 sources) Vitamin B12 Vitamin B12 Not-Taking/PRN Vitamin B12 Not- Taking Vitamin B12 Acti ve Problems Active Problems Problem Classification Problem Date Documented Da te Episodic/Chronic Abdominal pain (2 sources) Unspecified abdominal pain; Translations: [Epigastric pain] Onset: 10-06-2023 Episodic Administrative/social admission (3 sources) Dietary counseling and surveillance; Translations: [Persons encountering health services in other specified circumstances] Onset: 03-05-2023 Episodic Anxiety disorders (20 sources) Posttraumatic stress disorder; Translations: [Post-traumatic stress disorder, unspecified] Onset: 06-16-2018 Chronic Attention-deficit, conduct, and disruptive behavior disorders (20 sources) Attention deficit hyperactivity disorder; Translations: [Attention-deficit hyperactivity disorder, unspecified type] 05-20-2023 Chronic Attention-deficit, conduct, and disruptive behavior disorders (9 sources) Attention-deficit hyperactivity disorder, unspecified type; Translations: [Attention deficit disorder with hyperactivity] Chronic Calculus of urinary tract (8 sources) [...] [Hypertrophy of breast] Onset: 06-02-2023 06-02-2023 Episodic Nonspecific chest pain (4 sources) Chest pain, unspecified; Translations: [Chest pain] Onset: 10-05-2023 Episodic Other ear and sense organ disorders (1 source) Acute otitis externa; Translations: [Diffuse otitis externa, left ear] Episodic Other endocrine disorders (20 sources) Reactive hypoglycemia; Translations: [Other hypoglycemia] 05-20-2023 Chronic Other endocrine disorders (8 sources) Other hypoglycemia Chronic Other gastrointestinal disorders (1 source) Irritable bowel syndrome; Translations: [Irritable bowel syndrome without diarrhea] 05-21-2023 Chronic Other gastrointestinal disorders (2 sources) Irritable bowel syndrome without diarrhea; Translations: [Irritable bowel syndrome] 05-21-2023 Chronic Other gastrointestinal disorders (10 sources) Constipation; Translations: [Constipation, unspecified] 03-02-2023 Episodic Other injuries and conditions due to external causes (1 source) Closed injury of head; Translations: [Unspecified injury of head, initial encounter] 04-20-2023 Episodic Other liver diseases (20 sources) Steatosis of liver; Translations: [Fatty (change of) liver, not elsewhere classified] 05-20-2023 Chronic Other liver diseases (11 sources) Fatty (change of) liver, not elsewhere classified; Translations: [Other chronic nonalcoholic liver disease] Onset: 08-30-2022 Resolved: 10-29-2021 Chronic Other nervous system disorders (20 sources) Circadian rhythm sleep disorder of shift work type; Translations: [Circadian rhythm sleep disorder, shift work type] 05-20-2023 Chronic Other nervous system disorders (9 sources) Circadian rhythm sleep disorder, shift work type; Translations: [Circadian rhythm sleep disorder, shift work type] Chronic Other nutritional; endocrine; and metabolic disorders (20 sources) Obesity; Translations: [Obesity, unspecified] 05-20-2023 Chronic Other nutritional; endocrine; and metabolic disorders (20 sources) Other lipoprotein metabolism disorders; Translations: [Steatosis] Chronic Other nutritional; endocrine; and metabolic disorders (13 sources) Obesity, unspecified; Translations: [Obesity, unspecified] Onset: 10-29-2021 Resolved: 10-29-2021 Chronic Other nutritional; [...] Chronic Other nutritional; endocrine; and metabolic disorders (5 sources) Body mass index (BMI) 36.0-36.9, adult; Translations: [Body Mass Index 36.0-36.9, adult] Chronic Other nutritional; endocrine; and metabolic [...] mass index (BMI) 37.0-37.9, adult Chronic Other nutritional; endocrine; and metabolic disorders (2 sources) Body mass index 30+ - obesity; Translations: [Body mass index (BMI) 36.0-36.9, adult] 06-05-2023 Chronic Residual codes; unclassified (4 sources) Obstructive sleep [...] unspecified cervical region] Onset: 09-21-2017 01-11-2018 Chronic Unclassified (1 source) Hemorrhage of anus and rectum; Translations: [Hemorrhage of anus and rectum] Onset: 03-18-2023 Past or Other Problems Problem Classification Problem Date Documented Da te Episodic/Chronic Biliary tract disease (7 sources) Acute cholecystitis; Translations: [Acute cholecystitis] Onset: 09-15-2016 09-15-2016 Episodic Complications of surgical procedures or medical care (7 sources) Abscess; Translations: [Infection following a procedure, other surgical site, initial encounter] Onset: 09-28-2016 09-28-2016 Episodic E Codes: Fall (2 sources) Unspecified fall due to ice and snow, initial encounter; Translations: [Fall from other slipping, tripping, or stumbling] Onset: 04-20-2023 04-20-2023 Episodic Immunizations and screening for infectious disease [...] FOOT] Onset: 02-01-2022 Episodic Other gastrointestinal disorders (7 sources) Constipation, unspecified; Translations: [Constipation, unspecified] Onset: 03-02-2023 Episodic Other injuries and conditions due to external causes (1 source) Unspecified injury of head, initial encounter; Translations: [Unspecified injury of head, initial encounter] Onset: 04-20-2023 Episodic Other liver diseases (4 sources) Abnormal levels of other serum enzymes; Translations: [ABNORMAL LEVELS OTHER SERUM ENZYMES] Onset: 02-17-2022 Episodic Other non-traumatic joint disorders (4 sources) Pain in left ankle and joints of left foot; Translations: [PAIN IN LEFT ANKLE] Onset: 01-29-2022 Episodic Other screening for suspected conditions (not mental disorders or infectious disease) (20 sources) Elevated liver enzymes level; Translations: [Abnormal results of liver function studies] Onset: 02-25-2022 Episodic Spondylosis; intervertebral disc disorders; other back problems (16 sources) 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; Translations: [Intervertebral disc 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] Onset: 12-02-2022 12-16-2022 Episodic Sprains and strains (2 sources) Strain of neck muscle; Translations: [Strain of muscle, fascia and tendon at neck level, initial encounter] Onset: 04-20-2023 04-20-2023 Episodic Unclassified (7 sources) Onset: 02-10-2020 02-10-2020 Results Test Name Value Interpretation Reference Range Facility CT ABDOMEN PELVIS W IV CONTR Dar 10-07-2023 CT ABDOMEN PELVIS W IV CONTRAST EXAMINATION: CT OF THE ABDOMEN AND PELVIS WITH CONTRAST, 10/06/2023 10:54 pm TECHNIQUE: CT of the abdomen and pelvis was performed with the administration of intravenous contrast. Multiplanar reformatted images are provided for review. Automated exposure control, iterative reconstruction, and/or weight based adjustment of the mA/kV was utilized to reduce the radiation dose to as low as reasonably achievable. COMPARISON: None HISTORY: ORDERING SYSTEM PROVIDED HISTORY: RUQ abd pain. Prior carlene. TECHNOLOGIST PROVIDED HISTORY: RUQ abd pain. Prior carlene. Decision Support Exception - unselect if not a suspected or confirmed emergency medical condition->Emergency Medical Condition (MA) FINDINGS: Lower Chest: At the base of the lungs there are minimal dependent atelectatic changes. No pleural effusion. No hiatal hernia. No pneumoperitoneum. Organs: Evidence of moderate hepatomegaly. Liver measures 22.6 cm craniocaudad. In the lower portion right hepatic lobe there is a small 1 cm sized hepatic cysts. No other focal abnormality in liver. Evidence of previous cholecystectomy. Spleen is of normal size with multiple calcified granulomas. Normal appearing pancreas. Normal appearing bilateral adrenal glands. In bilateral kidneys there is no evidence of stone, mass or hydronephrosis. Bilateral ureters are of normal size, without evidence of stone or obstruction. Bladder is hypodistended without stone or acute process. GI/Bowel: No diagnostic finding in stomach. Large amount of food material is present in stomach. Minimal gas and mild increased fluid content noted in distal small bowel with a few small fluid levels scattered. No evidence of focal abnormal thickening of small bowel. There is normal appendix or short appendicular stump at the posteroinferior aspect of cecum. Moderate amount of stool and small to moderate amount of gas scattered in right side of colon with a few scattered fluid levels. In the transverse colon small to moderate amount of stool and gas are scattered with multiple fluid levels. In the descending colon no significant stool or gas noted. In the sigmoid colon and rectum no significant stool or gas noted. Evidence of [id number] diverticulosis of proximal sigmoid colon and descending colon without evidence of diverticulitis. No evidence of colitis. No pericolic inflammatory change. Pelvis: No abnormal fluid collection or inflammatory process in the pelvis. No pelvic mass or pathologic lymphadenopathy. Normal uterus. No adnexal mass. Peritoneum/Retroperitoneum : No periaortic or mesenteric pathologic lymphadenopathy. No ascites. No intraperitoneal or retroperitoneal hemorrhage. Abdominal aorta and mesenteric arteries are normally patent and opacified. Bones/Soft Tissues: No fracture or acute process in the lumbar spine, pelvic bones and joints and bilateral hip joints. No evidence of inguinal, femoral or ventral hernia. IMPRESSION: 1. Hepatomegaly. 2. Status post cholecystectomy. 3. Diverticulosis of the descending and sigmoid colon without evidence of diverticulitis. 4. No evidence of colitis or diverticulitis. 5. No evidence of obstructive uropathy. 6. Normal appendix or short appendicular stump at the posteroinferior aspect of the cecum. 7. Large amount of food material is present in the stomach. 8. Minimal gas and mild increased fluid content noted in distal small bowel with a few scattered fluid levels. No evidence of focal abnormal thickening of small bowel. No evidence of small bowel obstruction. Multiple fluid levels seen in the right colon and transverse colon. Acute enteritis may not be excluded. Interpreted by: Zoë Nicole MD Signed by: Zoë Nicole MD 10/07/23 Final result Normal [facility] Comp Metabolic Profon 2023 Albumin [Mass/Vol] 4.1 g/dL Normal 3.5-5.2 [facility] Comment on above: Performed By: #### C DP, TROPI, CP, LIP #### [facility] [address] [place], [place] [phone] Bank Note Designer: Domenica Velázquez MD Albumin/Glob Ratio 1.4 Normal 1.0-2.5 [facility] Comment on above: Performed By: #### C DP, TROPI, CP, LIP #### [address] [place], [place] [phone] Bank Note Designer: Domenica Velázquez MD Alkaline Phos 85 U/L Normal 35-104 [facility] Comment on above: Performed By: #### C DP, TROPI, CP, LIP #### [address] [place], [place] [phone] Bank Note Designer: Domenica Velázquez MD ALT [Catalytic activity/Vol] 12 U/L Normal 5-33 [facility] Comment on above: Performed By: #### C DP, TROPI, CP, LIP #### [address] [place], [place] [phone] Bank Note Designer: Domenica Velázquez MD Anion gap [Moles/Vol] 11 mmol/L Normal 9-17 [facility] Comment on above: Performed By: #### C DP, TROPI, CP, LIP #### [facility] [address] [place], [place] [phone] Bank Note Designer: Domenica Velázquez MD AST [Catalytic activity/Vol] 14 U/L Normal <32 [facility] Comment on above: Performed By: #### C DP, TROPI, CP, LIP #### [facility] [address] [place] [address] [place], [place] [phone] Bank Note Designer: Domenica Velázquez MD Bilirubin [Mass/Vol] 0.2 mg/dL Low 0.3-1.2 [facility] Comment on above: Performed By: #### C DP, TROPI, CP, LIP #### [facility] [address] [place], [place] [phone] Bank Note Designer: Domenica Velázquez MD BUN/CRE Ratio 30 High 9-20 [facility] Comment on above: Performed By: #### C DP, TROPI, CP, LIP #### [facility] [address] [place] [address] Bank Note Designer: Domenica Velázquez MD Calcium [Mass/Vol] 8.8 mg/dL Normal 8.6-10.4 [facility] Comment on above: Performed By: #### C DP, TROPI, CP, LIP #### [facility] [address] [place] [address] [place] [address] Bank Note Designer: Domenica Velázquez MD Chloride [Moles/Vol] 103 mmol/L Normal 98-107 [facility] Comment on above: Performed By: #### C DP, TROPI, CP, LIP #### [facility] [address] [place] [address] [place], [place] [phone] Bank Note Designer: Domenica Velázquez MD CO2 [Moles/Vol] 25 mmol/L Normal 20-31 [facility] Comment on above: Performed By: #### C DP, TROPI, CP, LIP #### [facility] [address] [place] [address] Bank Note Designer: Domenica Velázquez MD Creatinine [Mass/Vol] 0.6 mg/dL Normal 0.5-0.9 [facility] Comment on above: Performed By: #### C DP, TROPI, CP, LIP #### [facility] [address] [place], [place] [phone] Bank Note Designer: Domenica Velázquez MD GFR/1.73 sq M.predicted among non-blacks MDRD (S/P/Bld) [Vol rate/Area] mL/min/{1.73_m2} Normal >60 [facility] Comment on above: Result Comment: These results are not intended for use in patients <18 years of age. eGFR results are calculated without a race factor using the 2020 CKD-EPI equation. Careful clinical correlation is recommended, particularly when comparing to results calculated using previous equations. The CKD-EPI equation is less accurate in patients with extremes of muscle mass, extra-renal metabolism of creatine, excessive creatine ingestion, or following therapy that affects renal tubular secretion. Performed By: #### C DP, TROPI, CP, LIP #### [address] [place] [address] Bank Note Designer: Domenica Velázquez MD Glucose [Mass/Vol] 92 mg/dL Normal 70-99 [facility] Comment on above: Performed By: #### C DP, TROPI, CP, LIP #### [address] [place] [address] Bank Note Designer: Domenica Velázquez MD Potassium [Moles/Vol] 3.6 mmol/L Low 3.7-5.3 [facility] Comment on above: Performed By: #### C DP, TROPI, CP, LIP #### [address] [place] [address] Bank Note Designer: Domenica Velázquez MD Protein [Mass/Vol] 7.0 g/dL Normal 6.4-8.3 [facility] Comment on above: Performed By: #### C DP, TROPI, CP, LIP #### [address] [place] [address] Bank Note Designer: Domenica Velázquez MD Sodium [Moles/Vol] 139 mmol/L Normal 135-144 [facility] Comment on above: Performed By: #### C DP, TROPI, CP, LIP #### [address] [place], [place] [phone] Bank Note Designer: Domenica Velázquez MD Urea nitrogen [Mass/Vol] 18 mg/dL Normal 6-20 [facility] Comment on above: Performed By: #### C DP, TROPI, CP, LIP #### [facility] [address] [place], [place] [phone] Bank Note Designer: Domenica Velázquez MD Lipaseon 10-07-2023 Lipase [Catalytic activity/Vol] 28 U/L Normal 13-60 [facility] Comment on above: Performed By: #### C DP, TROPI, CP, LIP ####[facility] , [facility]83 Lab Director: Domenica Velázquez MD Troponinon 10-07-2023 Troponin, High Sens <6 Normal 0-14 [facility] Comment on above: Result Comment: High Sensitivity Troponin values cannot be compared with other Troponin methodologies. Performed By: #### C DP, TROPI, CP, LIP ####[facility] , [facility]83 Lab Director: Domenica Velázquez MD CBC with Diffon 7 Abs. Basophil 0.03 k/uL Normal 0.00-0.20 [facility] Comment on above: Performed By: #### C DP, TROPI, CP, LIP #### [facility] [address] [place], [facility]83 Bank Note Designer: Domenica Velázquez MD Abs.Imm.Granulocyte 0.03 k/uL Normal 0.00-0.30 [facility] Comment on above: Performed By: #### C DP, TROPI, CP, LIP #### [facility] [address] [place], [place] [phone] Bank Note Designer: Domenica Velázquez MD Abs.Neutrophil (Seg) 6.50 k/uL Normal 1.50-8.10 [facility] Comment on above: Performed By: #### C DP, TROPI, CP, LIP #### [facility] [address] [place] [address] Dr[place], [place] [phone] Bank Note Designer: Domenica Velázquez MD Basophils/100 WBC (Bld) 0 % Normal 0-2 [facility] Comment on above: Performed By: #### C DP, TROPI, CP, LIP #### [address] [place], [facility]83 Bank Note Designer: Domenica Velázquez MD Eosinophils (Bld) [#/Vol] 0.08 10*3/uL Normal 0.00-0.44 [facility] Comment on above: Performed By: #### C DP, TROPI, CP, LIP #### [address] [address] Bank Note Designer: Domenica Velázquez MD Eosinophils/100 WBC (Bld) 1 % Normal 1-4 [facility] Comment on above: Performed By: #### C DP, TROPI, CP, LIP #### [address] [place], [facility]83 Bank Note Designer: Domenica Velázquez MD Erythrocyte distribution width (RBC) [Ratio] 13.5 % Normal 11.8-14.4 [facility] Comment on above: Performed By: #### C DP, TROPI, CP, LIP #### [address] [place], [place] [address] Bank Note Designer: Domenica Velázquez MD Hematocrit (Bld) [Volume fraction] 40.1 % Normal 36.3-47.1 [facility] Comment on above: Performed By: #### C DP, TROPI, CP, LIP #### [address] [place] [address] Bank Note Designer: Domenica Velázquez MD Hemoglobin (Bld) [Mass/Vol] 13.4 g/dL Normal 11.9-15.1 [facility] Comment on above: Performed By: #### C DP, TROPI, CP, LIP #### [facility] [address] [place] [address] Bank Note Designer: Domenica Velázquez MD Immature granulocytes/100 WBC (Bld) 0 % Normal 0 [facility] Comment on above: Performed By: #### C DP, TROPI, CP, LIP #### [facility] [address] [place], [facility]83 Bank Note Designer: Domenica Velázquez MD Lymphocytes (Bld) [#/Vol] 2.41 10*3/uL Normal 1.10-3.70 [facility] Comment on above: Performed By: #### C DP, TROPI, CP, LIP #### [facility] [address] [place] [phone] Bank Note Designer: Domenica Velázquez MD Lymphocytes/100 WBC (Bld) 25 % Normal 24-43 [facility] Comment on above: Performed By: #### C DP, TROPI, CP, LIP #### [address] [place], [facility]83 Bank Note Designer: Domenica Velázquez MD MCH (RBC) [Entitic mass] 28.6 pg Normal 25.2-33.5 [facility] Comment on above: Performed By: #### C DP, TROPI, CP, LIP #### [address] [place], [place] [address] Bank Note Designer: Domenica Velázquez MD MCHC (RBC) [Mass/Vol] 33.4 g/dL Normal 28.4-34.8 [facility] Comment on above: Performed By: #### C DP, TROPI, CP, LIP #### [facility] [address] [place] [address] Bank Note Designer: Domenica Velázquez MD MCV (RBC) [Entitic vol] 85.7 fL Normal 82.6-102.9 [facility] Comment on above: Performed By: #### C DP, TROPI, CP, LIP #### [facility] [address] [place] [address] Bank Note Designer: Domenica Velázquez MD Monocytes (Bld) [#/Vol] 0.69 10*3/uL Normal 0.10-1.20 [facility] Comment on above: Performed By: #### C DP, TROPI, CP, LIP #### [facility] [address] [place] [address] Bank Note Designer: Domenica Velázquez MD Monocytes/100 WBC (Bld) 7 % Normal 3-12 [facility] Comment on above: Performed By: #### C DP, TROPI, CP, LIP #### [address] [place], [facility]83 Bank Note Designer: Domenica Velázquez MD Neutrophil (Seg) 67 % High 36-65 [facility] Comment on above: Performed By: #### C DP, TROPI, CP, LIP #### [address] [place], [facility]83 Bank Note Designer: Domenica Velázquez MD NRBC Automated 0.0 per 100 WBC Normal 0.0 [facility] Comment on above: Performed By: #### C DP, TROPI, CP, LIP #### [address] [place], [place] [address] Bank Note Designer: Domenica Velázquez MD Platelet mean volume (Bld) [Entitic vol] 10.5 fL Normal 8.1-13.5 [facility] Comment on above: Performed By: #### C DP, TROPI, CP, LIP #### [address] [place], [place] [phone] Bank Note Designer: Domenica Velázquez MD Platelets (Bld) [#/Vol] 292 10*3/uL Normal 138-453 [facility] Comment on above: Performed By: #### C DP, TROPI, CP, LIP #### [facility] [address] [place], [place] [phone] Bank Note Designer: Domenica Velázquez MD RBC (Bld) [#/Vol] 4.68 10*6/uL Normal 3.95-5.11 [facility] Comment on above: Performed By: #### C DP, TROPI, CP, LIP #### [facility] [address] [place], [place] [phone] Bank Note Designer: Domenica Velázquez MD WBC (Bld) [#/Vol] 9.7 10*3/uL Normal 3.5-11.3 [facility] Comment on above: Performed By: #### C DP, TROPI, CP, LIP #### [facility] [address] [place], [place] [phone] Bank Note Designer: Domenica Velázquez MD Basic Metabolic Profon 10-04 Anion gap [Moles/Vol] 10 mmol/L Normal 9-17 [facility] Comment on above: Performed By: #### D BASIA, BMP, CDP, TROPI #### [facility] [address] [place], [place] [phone] Bank Note Designer: Domenica Velázquez MD BUN/CRE Ratio 23 High 9-20 [facility] Comment on above: Performed By: #### D BASIA, BMP, CDP, TROPI #### [facility] [address] [place], [place] 1017783 Bank Note Designer: Domenica Velázquez MD Calcium [Mass/Vol] 8.9 mg/dL Normal 8.6-10.4 [facility] Comment on above: Performed By: #### D BASIA, BMP, CDP, TROPI #### [facility] [address] [place], [place] [phone] Bank Note Designer: Domenica Velázquez MD Chloride [Moles/Vol] 105 mmol/L Normal 98-107 [facility] Comment on above: Performed By: #### D BASIA, BMP, CDP, TROPI #### [facility] [address] [place] [address] Bank Note Designer: Domenica Velázquez MD CO2 [Moles/Vol] 26 mmol/L Normal 20-31 [facility] Comment on above: Performed By: #### D BASIA, BMP, CDP, TROPI #### [facility] [address] [place] [address] Bank Note Designer: Domenica Velázquez MD Creatinine [Mass/Vol] 0.6 mg/dL Normal 0.5-0.9 [facility] Comment on above: Performed By: #### D BASIA, BMP, CDP, TROPI #### [facility] [address] [place] [address] Bank Note Designer: Domenica Velázquez MD GFR/1.73 sq M.predicted among non-blacks MDRD (S/P/Bld) [Vol rate/Area] mL/min/{1.73_m2} Normal >60 [facility] Comment on above: Result Comment: These results are not intended for use in patients <18 years of age. eGFR results are calculated without a race factor using the 2020 CKD-EPI equation. Careful clinical correlation is recommended, particularly when comparing to results calculated using previous equations. The CKD-EPI equation is less accurate in patients with extremes of muscle mass, extra-renal metabolism of creatine, excessive creatine ingestion, or following therapy that affects renal tubular secretion. Performed By: #### D BASIA, BMP, CDP, TROPI #### [facility] [address] [place] [address] Bank Note Designer: Domenica Velázquez MD Glucose [Mass/Vol] 96 mg/dL Normal 70-99 [facility] Comment on above: Performed By: #### D BASIA, BMP, CDP, TROPI #### [facility] [address] [place] [address] Bank Note Designer: Domenica Velázquez MD Potassium [Moles/Vol] 3.8 mmol/L Normal 3.7-5.3 [facility] Comment on above: Performed By: #### D BASIA, BMP, CDP, TROPI #### [address] [place] [address] Bank Note Designer: Domenica Velázquez MD Sodium [Moles/Vol] 141 mmol/L Normal 135-144 [facility] Comment on above: Performed By: #### D BASIA, BMP, CDP, TROPI #### [address] [place], [place] [phone] Bank Note Designer: Domenica Velázquez MD Urea nitrogen [Mass/Vol] 14 mg/dL Normal 6-20 [facility] Comment on above: Performed By: #### D BASIA, BMP, CDP, TROPI #### [address] [place] [address] Bank Note Designer: Domeinca Velázquez MD CBC with Diffon 10-05-2023 Abs. Basophil <0.03 Normal 0.00-0.20 [facility] Comment on above: Performed By: #### D BASIA, BMP, CDP, TROPI #### [address] [place], [place] [phone] Bank Note Designer: Domenica Velázquez MD Abs.Imm.Granulocyte 0.03 k/uL Normal 0.00-0.30 [facility] Comment on above: Performed By: #### D BASIA, BMP, CDP, TROPI #### [facility] [address] [place] [address] [place], [place] [phone] Bank Note Designer: Domenica Velázquez MD Abs.Neutrophil (Seg) 5.10 k/uL Normal 1.50-8.10 [facility] Comment on above: Performed By: #### D BASIA, BMP, CDP, TROPI #### [address] [place] [address] Bank Note Designer: Domenica Velázquez MD Basophils/100 WBC (Bld) 0 % Normal 0-2 [facility] Comment on above: Performed By: #### D BASIA, BMP, CDP, TROPI #### [address] [place], [place] 6386383 Bank Note Designer: Domenica Velázquez MD Eosinophils (Bld) [#/Vol] 0.11 10*3/uL Normal 0.00-0.44 [facility] Comment on above: Performed By: #### D BASIA, BMP, CDP, TROPI #### [address] [place], [place] [phone] Bank Note Designer: Domenica Velázquez MD Eosinophils/100 WBC (Bld) 1 % Normal 1-4 [facility] Comment on above: Performed By: #### D BASIA, BMP, CDP, TROPI #### [address] [place] [phone] Bank Note Designer: Domenica Velázquez MD Erythrocyte distribution width (RBC) [Ratio] 13.5 % Normal 11.8-14.4 [facility] Comment on above: Performed By: #### D BASIA, BMP, CDP, TROPI #### [address] [place] [phone] Bank Note Designer: Domenica Velázquez MD Hematocrit (Bld) [Volume fraction] 42.6 % Normal 36.3-47.1 [facility] Comment on above: Performed By: #### D BASIA, BMP, CDP, TROPI #### [address] [place] [phone] Bank Note Designer: Domenica Velázquez MD Hemoglobin (Bld) [Mass/Vol] 14.1 g/dL Normal 11.9-15.1 [facility] Comment on above: Performed By: #### D BASIA, BMP, CDP, TROPI #### [address] [place] [phone] Bank Note Designer: Domenica Velázquez MD Immature granulocytes/100 WBC (Bld) 0 % Normal 0 [facility] Comment on above: Performed By: #### D BASIA, BMP, CDP, TROPI #### [facility] [address] [place], [place] [phone] Bank Note Designer: Domenica Velázquez MD Lymphocytes (Bld) [#/Vol] 2.42 10*3/uL Normal 1.10-3.70 [facility] Comment on above: Performed By: #### D BASIA, BMP, CDP, TROPI #### [facility] [address] [place], [place] [phone] Bank Note Designer: Domenica Velázquez MD Lymphocytes/100 WBC (Bld) 30 % Normal 24-43 [facility] Comment on above: Performed By: #### D BASIA, BMP, CDP, TROPI #### [address] [place], [place] [phone] Bank Note Designer: Domenica Velázquez MD MCH (RBC) [Entitic mass] 28.8 pg Normal 25.2-33.5 [facility] Comment on above: Performed By: #### D BASIA, BMP, CDP, TROPI #### [address] [place], [place] 3654383 Bank Note Designer: Domenica Velázquez MD MCHC (RBC) [Mass/Vol] 33.1 g/dL Normal 28.4-34.8 [facility] Comment on above: Performed By: #### D BASIA, BMP, CDP, TROPI #### [address] [place], [place] [phone] Bank Note Designer: Domenica Velázquez MD MCV (RBC) [Entitic vol] 87.1 fL Normal 82.6-102.9 [facility] Comment on above: Performed By: #### D BASIA, BMP, CDP, TROPI #### [address] [place], [place] [phone] Bank Note Designer: Domenica Velázquez MD Monocytes (Bld) [#/Vol] 0.53 10*3/uL Normal 0.10-1.20 [facility] Comment on above: Performed By: #### D BASIA, BMP, CDP, TROPI #### [facility] [address] [place] [address] Bank Note Designer: Domenica Velázquez MD Monocytes/100 WBC (Bld) 7 % Normal 3-12 [facility] Comment on above: Performed By: #### D BASIA, BMP, CDP, TROPI #### [facility] [address] [place], [place] [address] Bank Note Designer: Domenica Velázquez MD Neutrophil (Seg) 62 % Normal 36-65 [facility] Comment on above: Performed By: #### D BASIA, BMP, CDP, TROPI #### [address] [place], [place] [address] Bank Note Designer: Domenica Velázquez MD NRBC Automated 0.0 per 100 WBC Normal 0.0 [facility] Comment on above: Performed By: #### D BASIA, BMP, CDP, TROPI #### [address] [place], [facility]83 Bank Note Designer: Domenica Velázquez MD Platelet mean volume (Bld) [Entitic vol] 10.9 fL Normal 8.1-13.5 [facility] Comment on above: Performed By: #### D BASIA, BMP, CDP, TROPI #### [address] [place], [place] [phone] Bank Note Designer: Domenica Velázquez MD Platelets (Bld) [#/Vol] 296 10*3/uL Normal 138-453 [facility] Comment on above: Performed By: #### D BASIA, BMP, CDP, TROPI #### [address] [place], [place] [phone] Bank Note Designer: Domenica Velázquez MD RBC (Bld) [#/Vol] 4.89 10*6/uL Normal 3.95-5.11 [facility] Comment on above: Performed By: #### D BASIA, BMP, CDP, TROPI #### [facility] [address] [place] [address] Bank Note Designer: Domenica Velázquez MD WBC (Bld) [#/Vol] 8.2 10*3/uL Normal 3.5-11.3 [facility] Comment on above: Performed By: #### D BASIA, BMP, CDP, TROPI #### [facility] [address] [place] [place] [address] Bank Note Designer: Domenica Velázquez MD CT CHEST PULMONARY EMBOLISM W CONTRASTon 10-05-2023 CT CHEST PULMONARY EMBOLISM W CONTRAST EXAMINATION: CTA OF THE CHEST 10/05/2023 7:35 pm TECHNIQUE: CTA of the chest was performed after the administration of intravenous contrast. Multiplanar reformatted images are provided for review. MIP images are provided for review. Automated exposure control, iterative reconstruction, and/or weight based adjustment of the mA/kV was utilized to reduce the radiation dose to as low as reasonably achievable. COMPARISON: None. HISTORY: ORDERING SYSTEM PROVIDED HISTORY: Eval for PE vs occult PNA TECHNOLOGIST PROVIDED HISTORY: Eval for PE vs occult PNA Additional Contrast?->1 FINDINGS: Pulmonary Arteries: Pulmonary arteries are adequately opacified for evaluation. No evidence of intraluminal filling defect to suggest pulmonary embolism. Main pulmonary artery is normal in caliber. Mediastinum: No evidence of mediastinal lymphadenopathy. The heart and pericardium demonstrate no acute abnormality. There is no acute abnormality of the thoracic aorta. Lungs/pleura: The lungs are without acute process. Calcified granuloma seen in the left lower lobe. Left infrahilar lymph node is calcified. No focal consolidation or pulmonary edema. No evidence of pleural effusion or pneumothorax. Upper Abdomen: Limited images of the upper abdomen are unremarkable. Soft Tissues/Bones: No acute bone or soft tissue abnormality. IMPRESSION: 1. No evidence of pulmonary embolism or acute pulmonary abnormality. 2. Evidence of prior granulomatous disease. No active consolidation is seen. Interpreted by: Fernando Marcelino MD Signed by: Fernando Marcelino MD 10/05/23 Final result Normal [facility] D-Dimer Teston 10-05-2023 D-Dimer Test 0.30 ug/mL FEU Normal 0.00-0.59 [facility] Comment on above: Result Comment: When combined with a low clinical probability, a D dimer value of <0.50 ug/mL FEU is considered negative for DVT and PE (negative predictive value of 98%, sensitivity of 97%). If this test is not being used to help rule out DVT and PE, then the following reference range should be utilized: 0.00 - 0.59 ug/mL FEU. The D-Dimer assay is intended for use as an aid in the diagnosis of venous thromboembolism (DVT and PE) and the results should be interpreted in conjunction with the patient's medical history, clinical presentation, and other findings. Elevated levels of D-dimer activity can be seen in any state of coagulation activation and is not recommended in patients with therapeutic dose anticoagulant therapy for >24 hours, fibrinolytic therapy within the previous 7 days, trauma or surgery within the previous 4 weeks, disseminated malignancies, aortic aneurysm, sepsis, severe infections, pneumonia, severe skin infections, liver cirrhosis, advanced age, coronary disease, diabetes, and . A very low percentage of patients with DVT may yield D-dimer results below the cutoff of 0.5 ug/mL FEU. This is known to be more prevalent in patients with distal DVT. Performed By: #### D BASIA, BMP, CDP, TROPI #### [facility] [address] [place] [address] Bank Note Designer: Domenica Velázquez MD Liver Profileon 10-05-2023 Albumin [Mass/Vol] 4.4 g/dL Normal 3.5-5.2 [facility] Comment on above: Performed By: #### L IVP ####[facility] [place] [address] Lab Director: Domenica Velázquez MD Albumin/Glob Ratio 1.4 Normal 1.0-2.5 [facility] Comment on above: Performed By: #### L IVP ####[address] , [place] [address] Lab Director: Domenica Velázquez MD Alkaline Phos 99 U/L Normal 35-104 [facility] Comment on above: Performed By: #### L IVP ####[address] , [place] [id number] Lab Director: Domenica Velázquez MD ALT [Catalytic activity/Vol] 13 U/L Normal 5-33 [facility] Comment on above: Performed By: #### L IVP ####[address] , [place] [address] Lab Director: Domenica Velázquez MD AST [Catalytic activity/Vol] 16 U/L Normal <32 [facility] Comment on above: Performed By: #### L IVP ####[address] , [place] [address] Lab Director: Domenica Velázquez MD Bilirubin [Mass/Vol] 0.2 mg/dL Low 0.3-1.2 [facility] Comment on above: Performed By: #### L IVP ####[address] [place] [address] Lab Director: Domenica Velázquez MD Bilirubin, Indirect Can not be calculated Normal 0.0-1 .0 [facility] Comment on above: Performed By: #### L IVP ####[address] [place] [address] Lab Director: Domenica Velázquez MD Bilirubin.indirect [Mass/Vol] mg/dL Normal <0.3 [facility] Comment on above: Performed By: #### L IVP ####[address] , [place] [id number] Lab Director: Domenica Velázquez MD Protein [Mass/Vol] 7.5 g/dL Normal 6.4-8.3 [facility] Comment on above: Performed By: #### L IVP ####[facility] [place] [address] [facility] Director: Domenica Velázquez MD Troponinon 10-05-2023 Troponin, High Sens <6 Normal 0-14 [facility] Comment on above: Result Comment: High Sensitivity Troponin values cannot be compared with other Troponin methodologies. Performed By: #### T ROPI ####[facility] [place] [address] [facility] Director: Domenica Velázquez MD Troponin, High Sens <6 Normal 0-14 [facility] Comment on above: Result Comment: High Sensitivity Troponin values cannot be compared with other Troponin methodologies. Performed By: #### D BASIA, BMP, CDP, TROPI #### [facility] [address] [place], [place] [address] Bank Note Designer: Domenica Velázquez MD XR CHEST PORTABLEon 10-05-19 XR CHEST PORTABLE EXAMINATION: ONE XRAY VIEW OF THE CHEST 10/05/2023 7:21 pm COMPARISON: September 19, 2017 HISTORY: ORDERING SYSTEM PROVIDED HISTORY: chest pain TECHNOLOGIST PROVIDED HISTORY: chest pain FINDINGS: The lungs are without acute focal process. There is no effusion or pneumothorax. The cardiomediastinal silhouette is without acute process. The osseous structures are without acute process. IMPRESSION: No acute process. Interpreted by: Deyanira Lock MD Signed by: Deyanira Lock MD 10/05/23 Final result Normal [facility] CT CERVICAL SPINE WO CONTRAS Ton 04-20-2023 [...] Andi Montoya MD 04/20/23 Final result Normal [facility] CT Cervical spine WO contras ton 04-20-2023 Radiology Study observation (narrative) [facility] CT HEAD WO CONTRASTon 2023 CT [...] Andi Montoya MD 04/20/23 Final result Normal [facility] CT Head WO contraston 2023 Radiology Study observation (narrative) [facility] No Panel Informationon 04-[address] abnormal ity identified in the brain. No acute osseous abnormality identified in the cervical spine. [facility] RIS CONSOLIDATED EXAMINATION: CT OF THE CERVICAL [...] There is no prevertebral soft tissue swelling. [facility] Andi Montoya MD - 04/20/2023 [...] osseous abnormality identified in the cervical spine. [facility] No Panel InformationOrdered By: Andi Montoya on 04-20-2023 [facility] Work Phone: Glucose Glucometer (BldC) [M ass/Vol]on 03-27-2023 Glucose [Mass/Vol] 151 mg/dL High 65-[address] [facility] Glucose Poct Glucometerson 0 03-18-2023 Commemt1 Glu2: Cleaned Meter Normal [facility] Comment on above: Result Comment: PERF ORMED BY: [facility] [address] [place] [address] PATHOLOGIST PROFESSOR OF FINE ART SHA VALERA M.D. Performed By: #### G MARTHA #### Point of Care testing , Glucose [Mass/Vol] 87 mg/dL Normal [facility] Comment on above: Result Comment: [place] Glucose Reference Range is dependent on time and content of last meal. Glucose of more than 200 mg/dL in a nonstressed, ambulatory subject supports the diagnosis of Diabetes Mellitus. Performed By: #### G LULS #### Point of Care testing , HCG,Urineon 03-18-2023 Beta HCG ( test) Ql (U) Negative Normal [facility] Comment on above: Result Comment: PERF ORMED BY: [facility] [address] [place] [address] PATHOLOGIST PROFESSOR OF FINE ART SHA VALERA M.D. Performed By: #### U HCG #### [facility] [address] CBC AND AUTO DIFFon 03-16-19 ABSOLUTE BASOPHIL 0.0 X10E9/L Normal 0.0-0.2 [facility] Comment on above: Performed By: #### 2 4331-1, CBCA, CMP, TSHR #### [facility] ([id number]) [address] [place] [address] ABSOLUTE NEUTROPHIL 7.7 X10E9/L High 1.5-6.6 [facility] Comment on above: Performed By: #### 2 4331-1, CBCA, CMP, TSHR #### [facility] ([id number]) [address], [address] [place] [address] Basophils/100 WBC (Bld) 0.3 % Normal [facility] Comment on above: Performed By: #### 2 4331-1, CBCA, CMP, TSHR #### [facility] ([id number]) [address] [place] [address] Eosinophils (Bld) [#/Vol] 0.1 10*3/uL Normal 0.0-0.4 [facility] Comment on above: Performed By: #### 2 4331-1, CBCA, CMP, TSHR #### [facility] ([id number]) [address] [address] [place] [address] Eosinophils/100 WBC (Bld) 1.1 % Normal [facility] Comment on above: Performed By: #### 2 4331-1, CBCA, CMP, TSHR #### [facility] ([id number]) [address] [address] [place] [address] Erythrocyte distribution width (RBC) [Ratio] 14.6 % Normal 11.5-15.0 [facility] Comment on above: Performed By: #### 2 4331-1, CBCA, CMP, TSHR #### [facility] ([id number]) [address] [address] [place] [address] Hematocrit (Bld) [Volume fraction] 45.7 % Normal 35-47 [facility] Comment on above: Performed By: #### 2 4331-1, CBCA, CMP, TSHR #### [facility] ([id number]) [address] [address] Hemoglobin (Bld) [Mass/Vol] 15.0 g/dL Normal 11.7-15.5 [facility] Comment on above: Performed By: #### 2 4331-1, CBCA, CMP, TSHR #### [facility] ([id number]) [address] [address] Lymphocytes (Bld) [#/Vol] 2.4 10*3/uL Normal 1.0-3.5 [facility] Comment on above: Performed By: #### 2 4331-1, CBCA, CMP, TSHR #### [facility] ([id number]) [address] [address] Lymphocytes/100 WBC (Bld) 22.1 % Normal [facility] Comment on above: Performed By: #### 2 4331-1, CBCA, CMP, TSHR #### [facility] ([id number]) [address] [address] [place] [address] MCH (RBC) [Entitic mass] 29.0 pg Normal 27-34 [facility] Comment on above: Performed By: #### 2 4331-1, CBCA, CMP, TSHR #### [facility] ([id number]) [address] [address] [place] [address] MCHC (RBC) [Mass/Vol] 32.8 g/dL Normal 32-36 [facility] Comment on above: Performed By: #### 2 4331-1, CBCA, CMP, TSHR #### [facility] ([id number]) [address] [address] MCV (RBC) [Entitic vol] 88 fL Normal 80-100 [facility] Comment on above: Performed By: #### 2 4331-1, CBCA, CMP, TSHR #### [facility] ([id number]) [address] [address] Monocytes (Bld) [#/Vol] 0.6 10*3/uL Normal 0-0.9 [facility] Comment on above: Performed By: #### 2 4331-1, CBCA, CMP, TSHR #### [facility] ([id number]) [address] [address] Monocytes/100 WBC (Bld) 5.7 % Normal [facility] Comment on above: Performed By: #### 2 4331-1, CBCA, CMP, TSHR #### [facility] ([id number]) [address] [address] Neutrophils/100 WBC (Bld) 70.8 % Normal [facility] Comment on above: Performed By: #### 2 4331-1, CBCA, CMP, TSHR #### [facility] ([id number]) [address] [place] [address] Platelet mean volume (Bld) [Entitic vol] 9.7 fL Normal 7-12 [facility] Comment on above: Performed By: #### 2 4331-1, CBCA, CMP, TSHR #### [facility] ([id number]) [address] [address] [place] [address] Platelets (Bld) [#/Vol] 303 10*3/uL Normal 150-450 [facility] Comment on above: Performed By: #### 2 4331-1, CBCA, CMP, TSHR #### [facility] ([id number]) [address] [address] [place] [address] RBC COUNT 5.17 X10E12/L Normal 3.80-5.20 [facility] Comment on above: Performed By: #### 2 4331-1, CBCA, CMP, TSHR #### [facility] ([id number]) [address] [address] WBC (Bld) [#/Vol] 10.9 10*3/uL Normal 4.0-11.0 [facility] Comment on above: Performed By: #### 2 4331-1, CBCA, CMP, TSHR #### [facility] ([id number]) [address] [place] [address] COMPREHENSIVE METABOLIC PANE Dirk 03-16-2023 Albumin [Mass/Vol] 4.7 g/dL Normal 3.2-5.3 [facility] Comment on above: Performed By: #### 2 4331-1, CBCA, CMP, TSHR #### [facility] ([id number]) [address] [address] [place] [address] ALP [Catalytic activity/Vol] 74 U/L Normal 39-130 [facility] Comment on above: Performed By: #### 2 4331-1, CBCA, CMP, TSHR #### [facility] ([id number]) [address] [place] [address] ALT [Catalytic activity/Vol] 22 U/L Normal 0-31 [facility] Comment on above: Performed By: #### 2 4331-1, CBCA, CMP, TSHR #### [facility] ([id number]) [address] [place] [address] Anion gap [Moles/Vol] 12 mmol/L Normal 5-15 [facility] Comment on above: Performed By: #### 2 4331-1, CBCA, CMP, TSHR #### [facility] ([id number]) [address] [place] [address] AST [Catalytic activity/Vol] 20 U/L Normal 0-41 [facility] Comment on above: Performed By: #### 2 4331-1, CBCA, CMP, TSHR #### [facility] ([id number]) [address] [place] [address] Bilirubin [Mass/Vol] 0.5 mg/dL Normal 0.3-1.2 [facility] Comment on above: Performed By: #### 2 4331-1, CBCA, CMP, TSHR #### [facility] ([id number]) [address] [place] [address] Calcium [Mass/Vol] 9.9 mg/dL Normal 8.5-10.5 [facility] Comment on above: Performed By: #### 2 4331-1, CBCA, CMP, TSHR #### [facility] ([id number]) [address] [place] [address] Chloride [Moles/Vol] 105 mmol/L Normal 98-109 [facility] Comment on above: Performed By: #### 2 4331-1, CBCA, CMP, TSHR #### [facility] ([id number]) [address] [address] [place] [address] CO2 [Moles/Vol] 25 mmol/L Normal 22-32 [facility] Comment on above: Performed By: #### 2 4331-1, CBCA, CMP, TSHR #### [facility] ([id number]) [address] [address] [place] [address] Creatinine [Mass/Vol] 0.74 mg/dL Normal 0.40-1.00 [facility] Comment on above: Result Comment: METH OD TRACEABLE TO IDMS STANDARD Performed By: #### 2 4331-1, CBCA, CMP, TSHR #### [facility] ([id number]) [address] [address] [place] [address] eGFR (CKD-EPI) NON-RACE DEPENDENT >90 Normal >59 [facility] Comment on above: Result Comment: Reported eGFR is based on the CKD-EPI 2020 equation that does not use a race coefficient. Performed By: #### 2 4331-1, CBCA, CMP, TSHR #### [facility] ([id number]) [address] [address] [place] [address] Glucose [Mass/Vol] 143 mg/dL High 65-99 [facility] Comment on above: Performed By: #### 2 4331-1, CBCA, CMP, TSHR #### [facility] ([id number]) [address] [address] [place] [address] Potassium [Moles/Vol] 3.8 mmol/L Normal 3.5-5.0 [facility] Comment on above: Performed By: #### 2 4331-1, CBCA, CMP, TSHR #### [facility] ([id number]) [address] [address] [place] [address] Protein [Mass/Vol] 7.8 g/dL Normal 6.0-8.0 [facility] Comment on above: Performed By: #### 2 4331-1, CBCA, CMP, TSHR #### [facility] ([id number]) [address] [address] [place] [address] Sodium [Moles/Vol] 142 mmol/L Normal 134-146 [facility] Comment on above: Performed By: #### 2 4331-1, CBCA, CMP, TSHR #### [facility] ([id number]) [address] [address] [place] [address] Urea nitrogen [Mass/Vol] 17 mg/dL Normal 5-23 [facility] Comment on above: Performed By: #### 2 4331-1, CBCA, CMP, TSHR #### [facility] ([id number]) [address] [address] HGB A1C (GLYCO-HGB)on 2023 Glucose [Mass/Vol] 117 mg/dL Normal [facility] Comment on above: Performed By: #### 2 4331-1, CBCA, CMP, TSHR #### [facility] ([id number]) [address] [address] HbA1c (Bld) [Mass fraction] 5.7 % High 4.4-5.6 [facility] Comment on above: Result Comment: NOTE ADA Guidelines Result HgbA1c Normal : less than 5.7 % Prediabetes : 5.7 % to 6.4 % Diabetes : > 6.4 % Use with caution in patients with abnormal hemoglobin variants as the half-life of red blood cells and in vivo glycation rates are affected. Performed By: #### 2 4331-1, CBCA, CMP, TSHR #### [facility] ([id number]) [address] [address] [place] [address] Lipid 1996 panelon 4 Cholesterol [Mass/Vol] 132 mg/dL Low 150-200 [facility] Comment on above: Performed By: #### 2 4331-1, CBCA, CMP, TSHR #### [facility] ([id number]) [address] [place] [address] Cholesterol in HDL [Mass/Vol] 58 mg/dL Normal >39 [facility] Comment on above: Result Comment: HDL <40 mg/dL - High Risk HDL > or = 40mg/dL- Desirable HDL >60 mg/dL - Negative Risk Performed By: #### 2 4331-1, CBCA, CMP, TSHR #### [facility] ([id number]) [address] [place] [address] Cholesterol in LDL [Mass/Vol] 51 mg/dL Normal <130 [facility] Comment on above: Result Comment: LDL <100 mg/dL - Desirable LDL >160 mg/dL - High Risk Performed By: #### 2 4331-1, CBCA, CMP, TSHR #### [facility] ([id number]) [address] [place] [address] Cholesterol in VLDL [Mass/Vol] 23 mg/dL Normal 0-30 [facility] Comment on above: Performed By: #### 2 4331-1, CBCA, CMP, TSHR #### [facility] ([id number]) [address] [place] [address] CHOLESTEROL:HDL 2.3 Normal 1.0-5.0 [facility] Comment on above: Performed By: #### 2 4331-1, CBCA, CMP, TSHR #### [facility] ([id number]) [address] [place] [address] Triglyceride [Mass/Vol] 114 mg/dL Normal 27-150 [facility] Comment on above: Performed By: #### 2 4331-1, CBCA, CMP, TSHR #### [facility] ([id number]) [address] [place] [address] MAMM SCREENING BILATERAL W C windows migration technician 03-16-2023 MAMM SCREENING BILATERAL W CAD MAMM [...] 3:25 PM 0A a ADDITIONAL I Normal [facility] TSH WITH REFLEXon 03-16-2023 TSH 0.55 uIU/mL Normal 0.49-4.67 [facility] Comment on above: Performed By: #### 2 4331-1, CBCA, CMP, TSHR #### [facility] ([id number]) [address] [place] [address] PT - Assessmentson 3 PT - Assessments [id number]#1.00CD:12 7 Normal [facility] ST - Assessmentson ST - Assessments [id number]#1.00CD:127 Normal [facility] Consenton 09-25-2022 Consent [id number]#1.00CD:127 Normal [facility] Outside Recordson 2022 Outside Records [id number]#1.00CD:127 Normal [facility] ST - Orderson 2022 ST - Orders [id number]#1.00CD:127 Normal [facility] ST - Orders [id number]#1.00CD:127 Normal [facility] ST - Otheron 2022 ST - Other [id number]#1.00CD:127 Normal [facility] PAP ACOG PANEL 2: 30 to 65on 05-27-2022 . . Normal [facility] Comment on above: Result Comment: Perf ormed at: WB Performed By: #### 4 [id number] #### [facility] [address] [address] [address] Do Aguilar Age Gdln ACOG Testing - Normal [facility] Comment on above: Performed By: #### 4 [id number] #### [facility] [id number] Do Aguilar DIAGNOSIS: Comment Normal [facility] Comment on above: Result Comment: NEGA TIVE FOR INTRAEPITHELIAL LESION OR MALIGNANCY. Performed at: WB Performed By: #### 4 [id number] #### [facility] [id number] Do Aguilar HPV Aptima Negative Normal Negative [facility] Comment on above: Result Comment: This nucleic acid amplification test detects fourteen high-risk HPV types (16,18,31,33,35,39,45,51,52,56,58,59,66,68) without differentiation. Performed at: =G Performed By: #### 4 [id number] #### [facility] [address] [place] [address] Dr. Do Aguilar HPV Genotype Reflex Comment Normal [facility] Comment on above: Result Comment: Crit eria not met, HPV Genotype not performed. Performed at: WB Performed By: #### 4 [id number] #### [facility] [address] [place] [address] Dr. Do Aguilar Methodology: Comment Normal [facility] Comment on above: Result Comment: This liquid based ThinPrep(R) pap test was screened with the use of an image guided system. Performed at: WB Performed By: #### 4 [id number] #### [facility] [address] [place] [address] Dr. Do Aguilar Note: Comment Normal [facility] Comment on above: Result Comment: The Pap smear is a screening test designed to aid in the detection of premalignant and malignant conditions of the uterine cervix. It is not a diagnostic procedure and should not be used as the sole means of detecting cervical cancer. Both false-positive and false-negative reports do occur. . Performed at: WB Performed By: #### 4 [id number] #### [facility] [address] [place] [address] Dr. Do Aguilar Performed by: Comment Normal [facility] Comment on above: Result Comment: Melissa Ramachandran, Director Surface [employer] (ASCP) Performed at: WB Performed By: #### 4 [id number] #### [facility] [address] [place] [address] Dr. Do Aguilar Specimen adequacy: Comment Normal [facility] Comment on above: Result Comment: Sati sfactory for evaluation. Endocervical and/or squamous metaplastic cells (endocervical component) are present. Performed at: WB Performed By: #### 4 [id number] #### [facility] [address] [place] [address] Dr. Do Aguilar HEPATITIS C AB CASCADE TO QU ANT PCR GENOon 02-18-2022 HCV AB <0.1 Normal 0.0-0.9 [facility] Comment on above: Performed By: #### H EPCASC #### [facility] [address] [address] [address] Do Aguilar Interpretation: Comment Normal [facility] Comment on above: Result Comment: Nega tive Not infected with HCV, unless recent infection is suspected or other evidence exists to indicate HCV infection. Performed By: #### H EPCASC #### [facility] [address] [place] [address] Dr. Do Aguilar LIVER PROFILEon 02-17-2022 Albumin [Mass/Vol] 3.6 g/dL Normal 3.4-5.0 [facility] Comment on above: Performed By: #### L IVER #### [facility] [address] [place] [address] Dr. Do Aguilar Albumin/Globulin [Mass ratio] 0.9 {ratio} Normal [facility] Comment on above: Performed By: #### L IVER #### [facility] [address] [place] [address] Dr. Do Aguilar ALP [Catalytic activity/Vol] 79 U/L Normal 46-116 [facility] Comment on above: Performed By: #### L IVER #### [facility] [address] [place] [address] Dr. Do Aguilar ALT [Catalytic activity/Vol] 51 U/L Normal 14-59 [facility] Comment on above: Performed By: #### L IVER #### [facility] [address] [place] [address] Dr. Do Aguilar AST [Catalytic activity/Vol] 33 U/L Normal 15-37 [facility] Comment on above: Performed By: #### L IVER #### [facility] [address] [place] [address] Dr. Do Aguilar BILI, CONJUGATED 0.1 mg/dL Normal 0.0-0.2 [facility] Comment on above: Performed By: #### L IVER #### [facility] [address] [address] [address] Do Aguilar Bilirubin [Mass/Vol] 0.3 mg/dL Normal 0.2-1.0 [facility] Comment on above: Performed By: #### L IVER #### [facility] [address] [address] [address] Do Aguilar Globulin (S) [Mass/Vol] 4.2 g/dL Normal [facility] Comment on above: Performed By: #### L IVER #### [facility] [address] [place] [address] Dr. Do Aguilar Protein [Mass/Vol] 7.8 g/dL Normal 6.4-8.2 [facility] Comment on above: Performed By: #### L IVER #### [facility] [address] [place] [address] Dr. Do Aguilar TSHon 02-17-2022 TSH 0.457 uIU/mL Normal 0.358-3.74 0 [facility] Comment on above: Performed By: #### T SH #### [facility] [address] [place] [address] Dr. Do Aguilar VITAMIN B12on 02-17-2022 Cobalamin (Vitamin B12) [Mass/Vol] 1864.0 pg/mL Critically high 193.0-986. 0 [facility] Comment on above: Performed By: #### V ITB12 #### [facility] [address] [place] [address] Dr. Do Aguilar History and Physicalon 12-04 History and Physical [id number]#1.00[facility]ative [facility] - Surgeon/P godwin 12-04-2016 Operative Report - Surgeon/Physician [id number]#1.00[facility] Coding Summaryon 11-26-2016 Coding Summary CODING DATE: 017 [facility] STATUS: Home PAYOR: Medicaid HMO ADMIT DX: REASON FOR VISIT DX: R10.13 Epigastric pain R10.11 Right upper quadrant pain FINAL DX: PRINCIPAL: K29.70 Gastritis, unspecified, without bleeding SECONDARY: PROCEDURES DOCTOR NAME DATE 17202 Esophagogastroduodenoscopy , Juan Ramon Jean MD 11/21/2016 flexible, transoral; with biopsy, single or multiple NOTE: The code number assigned matches the documented diagnosis and / or procedure in the patient's chart. However, the narrative phrase printed from the coding software may appear abbreviated, or result in slightly different terminology. Coded By: Rosalba Laureano Date Saved: 11/26/2016 01:09 pm [facility] Consent Formson 11-24-2016 Consent Forms [id number]#1.00[facility] 2016 Intraoperative Note [id number]#1.00[facility] Note [id number]#1.00OT[facility] Operative Report - Surgeon/P godwin 11-24-2016 Operative [...] in two weeks.Juan Ramon Jean M.D.JOB #: [id number]: 11/21/2016T: 11/21/2016[Electronically Signed on: 12/03/2016 07:09 EDT] Juan Ramon Jean MD Generated Domain User for [id number][Verified on: 12/03/2016 07:09 EDT] Juan Ramon Jean MD[Transcribed on: 11/21/2016 11:37 EDT]U [facility] Telemetry Stripson 7 Telemetry Strips [id number]#1.00OTGTIFF [facility] Telemetry Strips [id number]#1.00OTGTIFF [facility] H. Pylori Gastricon 11-22-19 17 H. Pylori Rico Int Ctrl Pass [facility] Comment on above: Order Comment: H. (A NTRUM) Result Comment: Pass Performed By: #### 2 [id number] ####[facility] (DEFAULT)[address] [place] [address] H. Pylori Gastric Negative Normal Negative [facility] Comment on above: Order Comment: H. (A NTRUM) Result Comment: Nega tive Performed By: #### 2 [id number] ####[facility] (DEFAULT)[address] [place] [address] Inpatient Clinical Summaryon 11-21-2016 Inpatient Clinical Summary [facility] SURGERYClinical Discharge SummaryPERSON INFORMATIONName KARMA SR Age 36 Years [birth year]/Sex FEMALE Language Citizen Of [place] PCP DEFR[place], DAVIDMarital Status Med Service Ambulatory SurgeryMRN [id number] Acct# Arrival 11/21/16 07:22:21Visit Reason EGD - EPIGASTRIC ABDOMINAL PAIN Acuity LOS 013 23:19Address:[address] [facility] [id number]:PROVIDER INFORMATIONVITALS INFORMATIONVital Sign Triage LatestTemp OralTemp Temporal 36.4 DegC 36.4 DegCTemp IntravascularTemp AxillaryTemp [id number] Sat 100 % 97 %Respiratory Rate 16 [...] llow up:With: Address: When:Juan Ramon Jean [address] [place], [place] [id number] Business (1) Within 2 to 4 weeksComments:Call for follow up appointmentWith: Address: When:DOMENICA OLIVA [address] [place] [address] Business (1)DIAGNOSISAcute gastritisComment:PHYS DOC NOTES Normal [facility] Inpatient Patient Summaryon 11-21-2016 Inpatient Patient Summary [address] [id number] patient Discharge InstructionsName: ANDREAS SRB: 80 Address: [address] [place] [address] Care Provider:Name: DOMENICA OLIVAPhone: Discharge Diagnosis: Acute [...] or business decisions or sign any legal documentsThe [facility] would like to thank you for allowing us to assist you with your healthcare needs. The following includes patient education materials and information regarding your injury/illness.KARMA SR has been given the following list of follow-up instructions, prescriptions, and patient education materials:Follow-up InstructionsWith: Address: When:Juan Ramon Jean [address] [phone] Business (1) Within 2 to 4 weeksComments:Call for follow up appointmentWith: Address: When:DOMENICA OLIVA [address] [place] [address] Business (1)MedicationsDuring the course of your visit, [...] for Disease Control and Prevention October 2013 [facility] MAGR Endo Intraoperative Rec ordon 11-21-2016 [facility] Intraoperative Record [facility] Intra-Op Record Summary Primary Physician: Juan Ramon Jean MD Finalized Date/Time: 11/21/16 08:37:38 Pt. Name: KARMA SR/Sex: 1980 FEMALE Med Rec #: [id number] Physician: Juan Ramon Jean MD Financial #: [id number] Pt. Type: D Room/Bed: / Admit/Disch: 11/21/16 [...] Jane RN Role Performed Surgeon - Primary Unix Systems Administrator Unix Systems Administrator Time In 11/21/16 08:06:00 11/21/16 08:06:00 11/21/16 [...] Unfinalizing Freetext Reason for Unfinalizing 11/21/16 08:37 [facility] Normal [facility] MAGR Endo Postoperative Benjamin rdon 11-21-2016 [facility] Endo Postoperative Record [facility] Endo Phase II Record Summary Primary Physician: Juan Ramon Jean MD Finalized Date/Time: 11/21/16 10:02:07 Pt. Name: KARMA SR/Sex: 1980 FEMALE Med Rec #: [id number] Physician: Juan Ramon Jean MD Financial #: [id number] Pt. Type: D Room/Bed: / Admit/Disch: 11/21/16 [...] effectively. IV discont, bleeding controlled. Pt dressing. 45 Disch per W/C to private car. Finalized By: Cammy Barroso RN Document Signatures Signed By: Cammy Barroso RN 11/21/16 10:02 [facility] 11-21-2016 [facility] Endo Preoperative Record [facility] Endo Pre-Op Record Summary Primary Physician: Juan Ramon Jean MD Finalized Date/Time: 11/21/16 08:27:58 Pt. Name: KARMA SR/Sex: 1980 FEMALE Med Rec #: [id number] Physician: Juan Ramon Jean MD Financial #: [id number] Pt. Type: D Room/Bed: / Admit/Disch: 11/21/16 [...] Signed By: Cammy Barroso RN 11/21/16 08:27 [facility] Test Urine 1on U Preg Negative [facility] Comment on above: Result Comment: Nega tive Performed By: #### 3 [id number] ####[facility] (DEFAULT)[address] [place] [address] U Preg Internal Control Pass [facility] Comment on above: Result Comment: Pass Performed By: #### 3 [id number] ####[facility] (DEFAULT)[address] [place] [address] Vital Signs Date Time Vital Sign Value Performing Clinician Facility 06-02-2023 14:32-0400 Body mass index (BMI) [Ratio] 36.67 kg/m2 Deepika Robledo MD Work Phone: [facility] 06-02-2023 14:32-0400 Body weight 93.89 kg Deepika Robledo MD Work Phone: [facility] 06-02-2023 14:32-0400 Diastolic blood pressure 102 mm[Hg] Deepika oRbledo MD Work Phone: [facility] 06-02-2023 14:32-0400 Heart rate 83 /min Deepika Robledo MD Work Phone: [facility] 06-02-2023 14:32-0400 Systolic blood pressure 136 mm[Hg] Deepika Robledo MD Work Phone: [facility] 05-21-2023 11:22-0400 Body height 160.02 cm [facility] 05-21-2023 11:22-0400 Body mass index (BMI) [Ratio] 36.5 kg/m2 [facility] 05-21-2023 11:22-0400 Body weight 93.44 kg [facility] 05-21-2023 10:39-0400 Body height 160.02 cm [facility] 05-21-2023 10:39-0400 Body mass index (BMI) [Ratio] 36.5 kg/m2 [facility] 05-21-2023 10:39-0400 Body weight 93.49 kg [facility] 05-21-2023 10:39-0400 Diastolic blood pressure 77 mm[Hg] [facility] 05-21-2023 10:39-0400 Heart rate 105 /min [facility] 05-21-2023 10:39-0400 Respiratory rate 18 /min [facility] 05-21-2023 10:39-0400 SaO2% (BldA) [Mass fraction] 95 % [facility] 05-21-2023 10:39-0400 Systolic blood pressure 114 mm[Hg] [facility] 04-28-2023 11:21-0500 Body height 160 cm Gaurav CALVO Work Phone: [facility] 04-28-2023 11:21-0500 Body mass index (BMI) [Ratio] 36.14 kg/m2 Gaurav CALVO Work Phone: [facility] 04-28-2023 11:21-0500 Body weight 92.53 kg Gaurav CALVO Work Phone: [facility] 04-28-2023 11:21-0500 Diastolic blood pressure 82 mm[Hg] Gaurav CALVO Work Phone: [facility] 04-28-2023 11:21-0500 Heart rate 87 /min [facility] CAL[facility] 04-28-2023 11:21-0500 Respiratory rate 16 /min Gaurav Parth CALVO [facility] 04-28-2023 11:21-0500 SaO2% (BldA) [Mass fraction] 97 % Gaurav CALVO [facility] 04-28-2023 11:21-0500 Systolic blood pressure 122 mm[Hg] Gaurav CALVO [facility] 04-20-2023 12:41-0500 Body mass index (BMI) [Ratio] 36.49 kg/m2 Shawna Rumschlag DO Work Phone: [employer] 04-20-2023 12:41-0500 Body weight 93.44 kg Shawna Rumschlag DO Work Phone: [employer] 04-20-2023 12:41-0500 Diastolic blood pressure 76 mm[Hg] Shawna Rumschlag DO Work Phone: [employer] 04-20-2023 12:41-0500 Heart rate 83 /min Shawna Rumschlag DO Work Phone: [employer] 04-20-2023 12:41-0500 Respiratory rate 16 /min Shawna Rumschlag DO Work Phone: [employer] 04-20-2023 12:41-0500 SaO2% (BldA) [Mass fraction] 98 % Shawna Rumschlag DO Work Phone: [employer] 04-20-2023 12:41-0500 Systolic blood pressure 129 mm[Hg] Shawna Rumschlag DO Work Phone: [employer] 04-20-2023 12:39-0500 Body temperature 97.3 [degF] Shawna Rumschlag DO Work Phone: [employer] 03-18-2023 11:30-0500 Diastolic blood pressure 84 mm[Hg] MD Yo Blank Work Phone: [facility] 03-18-2023 11:30-0500 Heart rate 95 /min MD Yo Blank Work Phone: [facility] 03-18-2023 11:30-0500 Respiratory rate 16 /min MD Yo Blank Work Phone: [facility] 03-18-2023 11:30-0500 SaO2% (BldA) [Mass fraction] 99 % MD Yo Blank Work Phone: [facility] 03-18-2023 11:30-0500 Systolic blood pressure 123 mm[Hg] MD Yo Blank Work Phone: [facility] 03-05-2023 09:15-0500 Body height 160.02 cm Gayathri Scally Other [employer] Other 03-05-2023 09:15-0500 Body mass index (BMI) [Ratio] 37.57 kg/m2 Gayathri Scally Other [employer] Other 03-05-2023 09:15-0500 Body weight 96.21 kg Gayathri Scally Other [employer] Other 03-05-2023 09:15-0500 Diastolic blood pressure 89 mm[Hg] Gayathri Scally Other [employer] Other 03-05-2023 09:15-0500 Respiratory rate 18 /min Gayathri Scally Other [employer] Other 03-05-2023 09:15-0500 SaO2% (BldA) [Mass fraction] 96 % Gayathri Scally Other [employer] Other 03-05-2023 09:15-0500 Systolic blood pressure 122 mm[Hg] Gayathri Adams Other [employer] Other 03-02-2023 19:24-0500 Body height 160 cm Sil Ellis DO Work Phone: [employer] 03-02-2023 19:24-0500 Body mass index (BMI) [Ratio] 36.31 kg/m2 Sil Sullivan DO Work Phone: [employer] 03-02-2023 19:24-0500 Body temperature 98.29 [degF] Sil Zafaris DO Work Phone: [employer] 03-02-2023 19:24-0500 Body weight 92.99 kg Sil Sullivan DO Work Phone: [employer] 03-02-2023 19:24-0500 Diastolic blood pressure 98 mm[Hg] Sil Sullivan DO Work Phone: [employer] 03-02-2023 19:24-0500 Heart rate 82 /min Sil Sullivan DO Work Phone: [employer] 03-02-2023 19:24-0500 Respiratory rate 18 /min Sil Sullivan DO Work Phone: [employer] 03-02-2023 19:24-0500 SaO2% (BldA) [Mass fraction] 98 % Sil Zafaris DO Work Phone: [employer] 03-02-2023 19:24-0500 Systolic blood pressure 139 mm[Hg] Sil Sullivan DO Work Phone: [employer] 02-05-2023 09:20-0500 Body height 160.02 cm Jan Garg Other [employer] Other 02-05-2023 09:20-0500 Body mass index (BMI) [Ratio] 36.66 kg/m2 Jan Scovanner Other [employer] Other 02-05-2023 09:20-0500 Body weight 93.9 kg Jan Scovanner Other [employer] Other 01-15-2023 09:45-0500 Body height 160.02 cm Gayathri Scally Other [employer] Other 01-15-2023 09:45-0500 Body mass index (BMI) [Ratio] 36.68 kg/m2 Gayathri Scally Other [employer] Other 01-15-2023 09:45-0500 Body weight 93.94 kg Gayathri Scally Other [employer] Other 01-15-2023 09:45-0500 Diastolic blood pressure 83 mm[Hg] Gayathri Scally Other [employer] Other 01-15-2023 09:45-0500 Respiratory rate 18 /min Gayathri Scally Other [employer] Other 01-15-2023 09:45-0500 SaO2% (BldA) [Mass fraction] 99 % Gayathri Scally Other [employer] Other 01-15-2023 09:45-0500 Systolic blood pressure 119 mm[Hg] Gayathri Scally Other [employer] Other 01-07-2023 10:00-0500 Body height 160.02 cm Jan Scovanner Other [employer] Other 01-07-2023 10:00-0500 Body mass index (BMI) [Ratio] 36.13 kg/m2 Jan Scovanner Other [employer] Other 01-07-2023 10:00-0500 Body weight 92.53 kg Jan Scovanner Other [employer] Other 01-07-2023 10:00-0500 Diastolic blood pressure 74 mm[Hg] Jan Scovanner Other [employer] Other 01-07-2023 10:00-0500 Systolic blood pressure 118 mm[Hg] Jan Scovanner Other [employer] Other 08-28-2022 09:00-0400 Body height 160.02 cm Tamar Fitt Other [employer] Other 08-28-2022 09:00-0400 Body mass index (BMI) [Ratio] 35.8 kg/m2 Tamar Fitt Other [employer] Other 08-28-2022 09:00-0400 Body weight 91.67 kg Tamar Fitt Other [employer] Other 07-29-2022 10:15-0400 Body height 160.02 cm Gayathri Scally Other [employer] Other 07-29-2022 10:15-0400 Body mass index (BMI) [Ratio] 35.18 kg/m2 Gayathri Scally Other [employer] Other 07-29-2022 10:15-0400 Body weight 90.08 kg Gayathri Scally Other [employer] Other 07-29-2022 10:15-0400 Diastolic blood pressure 84 mm[Hg] Gayathri Scally Other [employer] Other 07-29-2022 10:15-0400 Respiratory rate 18 /min Gayathri Scally Other [employer] Other 07-29-2022 10:15-0400 SaO2% (BldA) [Mass fraction] 99 % Gayathri Scally Other [employer] Other 07-29-2022 10:15-0400 Systolic blood pressure 127 mm[Hg] Gayathri Scally Other [employer] Other 05-20-2022 11:15-0400 Body height 160.02 cm Gayathri Scally Other [employer] Other 05-20-2022 11:15-0400 Body mass index (BMI) [Ratio] 34.52 kg/m2 Gayathri Scally Other [employer] Other 05-20-2022 11:15-0400 Body weight 88.41 kg Gayathri Scally Other [employer] Other 05-20-2022 11:15-0400 Diastolic blood pressure 82 mm[Hg] Gayathri Scally Other [employer] Other 05-20-2022 11:15-0400 Respiratory rate 18 /min Gayathri Scally Other [employer] Other 05-20-2022 11:15-0400 SaO2% (BldA) [Mass fraction] 97 % Gayathri Scally Other [employer] Other 05-20-2022 11:15-0400 Systolic blood pressure 121 mm[Hg] Gayathri Scally Other [employer] Other 04-08-2022 11:15-0500 Body height 160.02 cm Gayathri Scally Other [employer] Other 04-08-2022 11:15-0500 Body mass index (BMI) [Ratio] 34.49 kg/m2 Gayathri Scally Other [employer] Other 04-08-2022 11:15-0500 Body weight 88.32 kg Gayathri Scally Other [employer] Other 04-08-2022 11:15-0500 Diastolic blood pressure 77 mm[Hg] Gayathri Scally Other [employer] Other 04-08-2022 11:15-0500 Respiratory rate 18 /min Gayathri Scally Other [employer] Other 04-08-2022 11:15-0500 SaO2% (BldA) [Mass fraction] 98 % Gayathri Scally Other [employer] Other 04-08-2022 11:15-0500 Systolic blood pressure 110 mm[Hg] Gayathri Scally Other [employer] Other 04-08-2022 10:15-0500 Body height 160.02 cm Tamar Sosa Other [employer] Other 04-08-2022 10:15-0500 Body mass index (BMI) [Ratio] 34.49 kg/m2 Tamar Fitt Other [employer] Other 04-08-2022 10:15-0500 Body weight 88.32 kg Tamar Fitt Other [employer] Other 02-26-2022 10:00-0500 Body height 160.02 cm Tamar Fitt Other [employer] Other 02-25-2022 11:45-0500 Body height 160.02 cm Gayathri Scally Other [employer] Other 02-25-2022 11:45-0500 Body mass index (BMI) [Ratio] 36.63 kg/m2 Gayathri Scally Other [employer] Other 02-25-2022 11:45-0500 Body weight 93.8 kg Gayathri Scally Other [employer] Other 02-25-2022 11:45-0500 Diastolic blood pressure 78 mm[Hg] Gayathri Scally Other [employer] Other 02-25-2022 11:45-0500 Respiratory rate 18 /min Gayathri Scally Other [employer] Other 02-25-2022 11:45-0500 SaO2% (BldA) [Mass fraction] 97 % Gayathri Scally Other [employer] Other 02-25-2022 11:45-0500 Systolic blood pressure 109 mm[Hg] Gayathri Scally Other [employer] Other 01-14-2022 11:45-0500 Body height 160.02 cm Gayathri Scally Other [employer] Other 01-14-2022 11:45-0500 Body mass index (BMI) [Ratio] 39.37 kg/m2 Gayathri Scally Other [employer] Other 01-14-2022 11:45-0500 Body weight 100.84 kg Gayathri Scally Other [employer] Other 01-14-2022 11:45-0500 Diastolic blood pressure 88 mm[Hg] Gayathri Scally Other [employer] Other 01-14-2022 11:45-0500 Respiratory rate 18 /min Gayathri Scally Other [employer] Other 01-14-2022 11:45-0500 SaO2% (BldA) [Mass fraction] 97 % Gayathri Scally Other [employer] Other 01-14-2022 11:45-0500 Systolic blood pressure 124 mm[Hg] Gayathri Scally Other [employer] Other 12-04-2021 12:00-0400 Body height 160.02 cm Gayathri Scally Other [employer] Other 12-04-2021 12:00-0400 Body mass index (BMI) [Ratio] 39.73 kg/m2 Gayathri Scally Other [employer] Other 12-04-2021 12:00-0400 Body weight 101.74 kg Gayathri Scally Other [employer] Other 12-04-2021 12:00-0400 Diastolic blood pressure 74 mm[Hg] Gayathri Scally Other [employer] Other 12-04-2021 12:00-0400 Respiratory rate 18 /min Gayathri Brooklynly Other [employer] Other 12-04-2021 12:00-0400 SaO2% (BldA) [Mass fraction] 95 % Gayathri Scally Other [employer] Other 12-04-2021 12:00-0400 Systolic blood pressure 110 mm[Hg] Gayathri Brooklynly Other [employer] Other 10-29-2021 11:30-0400 Body height 160.02 cm Yo Blank Other [employer] Other 10-29-2021 11:30-0400 Body mass index (BMI) [Ratio] 38.61 kg/m2 Yo Blank Other [employer] Other 10-29-2021 11:30-0400 Body weight 98.88 kg Yo Blank Other [employer] Other 10-29-2021 11:30-0400 Diastolic blood pressure 74 mm[Hg] Yo Blank Other [employer] Other 10-29-2021 11:30-0400 Systolic blood pressure 111 mm[Hg] Yo Blank Other [employer] Other 10-22-2021 13:26-0400 Body temperature 97.2 [degF] Shawna Rumschlag DO Work Phone: [facility] [employer] 10-22-2021 13:26-0400 Diastolic blood pressure 71 mm[Hg] Shawna Rumschlag DO Work Phone: [facility] [employer] 10-22-2021 13:26-0400 Heart rate 85 /min Shawna Rumschlag DO Work Phone: [facility] [employer] 10-22-2021 13:26-0400 Respiratory rate 16 /min Shawna Rumschlag DO Work Phone: [facility] [employer] 10-22-2021 13:26-0400 SaO2% (BldA) [Mass fraction] 94 % Shawna Rumschlag DO Work Phone: [facility] [employer] 10-22-2021 13:26-0400 Systolic blood pressure 131 mm[Hg] Shawna Rumschlag DO Work Phone: [facility] [employer] 10-11-2021 23:48-0400 Body height 160 cm Daniel Adkins MD Work Phone: [facility] [employer] 10-11-2021 23:48-0400 Body mass index (BMI) [Ratio] 36.67 kg/m2 Daniel Adkins MD Work Phone: [facility] [employer] 10-11-2021 23:48-0400 Body temperature 98.6 [degF] Daniel Adkins MD Work Phone: [employer] 10-11-2021 23:48-0400 Body weight 93.89 kg Daniel Adkins MD Work Phone: [facility] [employer] 10-11-2021 23:48-0400 Diastolic blood pressure 88 mm[Hg] Daniel Adkins MD Work Phone: [employer] 10-11-2021 23:48-0400 Heart rate 97 /min Daniel Adkins MD [facility]: [facility] 10-11-2021 23:48-0400 Respiratory rate 16 /min Daniel Adkisn MD Work Phone: [facility] [employer] [facility] 10-11-2021 23:48-0400 SaO2% (BldA) [Mass fraction] 96 % Daniel Adkins MD Work Phone: [facility] 10-11-2021 23:48-0400 Systolic blood pressure 134 mm[Hg] Daniel Adkins MD Work Phone: [facility] Encounters Encounter Date Encounter Type Care Provider Facility Start: 10-20-2023 [facility] Start: 10-06-2023 End: 10-07-2023 Emergency department patient visit [facility] Start: 10-05-2023 End: 10-05-2023 Emergency department patient visit [facility] Start: 10-05-2023 End: 10-05-2023 Emergency department patient visit [facility] Start: 09-22-2023 End: 09-22-2023 Subsequent hospital visit by physician Jan Olmstead PT [facility] Physical Therapy Start: 09-15-2023 End: 09-15-2023 [facility] Start: 09-07-2023 End: 09-07-2023 [facility] Start: 09-01-2023 End: 09-01-2023 [facility] [facility] Start: 08-26-2023 End: 08-26-2023 ambulatory SHAWNA [facility]CHLAG [facility] Start: 08-26-2023 End: 08-26-2023 Subsequent hospital visit by physician Kofi Villegas PT [facility] Physical Therapy Comment on above: Arrived Start: 08-21-2023 End: 08-21-2023 ambulatory SHAWNA RUMSCHLAG [facility] Start: 08-21-2023 End: 08-21-2023 Subsequent hospital visit by physician Jan Olmstead PT [facility] Physical Therapy Comment on above: Arrived Start: 08-13-2023 End: 08-13-2023 ambulatory LAILA LIEBERMAN Not Available Start: 08-11-2023 End: 08-11-2023 ambulatory SHAWNA RUMSCHLAG [facility] Start: 08-11-2023 End: 08-11-2023 Subsequent hospital visit by physician Jan Olmstead PT [facility] Physical Therapy Comment on above: Arrived Start: 08-04-2023 End: 08-04-2023 ambulatory SHAWNA RUMSCHLAG [facility] Start: 07-29-2023 End: 07-29-2023 ambulatory SHAWNA RUMSCHLAG [facility] Start: 07-14-2023 End: 07-14-2023 Subsequent hospital visit by physician Rebecca Skinner PT [facility] Physical Therapy Start: 07-07-2023 End: 07-07-2023 ambulatory SHAWNA RUMSCHLAG [facility] Start: 06-30-2023 End: 06-30-2023 ambulatory SHAWNA RUMSCHLAG [facility] Start: 06-17-2023 End: 06-17-2023 ambulatory SHAWNA RUMSCHLAG [facility] Start: 06-16-2023 End: 06-16-2023 ambulatory SHAWNA RUMSCHLAG [facility] Start: 06-04-2023 End: 06-04-2023 ambulatory SHAWNA RUMSCHLAG [facility] Start: 06-03-2023 End: 06-03-2023 ambulatory [facility] Start: 06-02-2023 End: 06-02-2023 [facility] Start: 06-02-2023 End: 06-02-2023 Office outpatient new 30 minutes Deepika Robledo MD Work Phone: [facility] Comment on above: Mass of upper outer quadrant of right breast (Primary Dx); Abnormal mammogram; Symptomatic mammary hypertrophy Start: 06-02-2023 ambulatory [facility] Start: 05-25-2023 End: 05-25-2023 ambulatory ALICIA PRESTON Not Available Start: 05-21-2023 End: 05-21-2023 Patient encounter procedure [facility] Gastro[facility] Work Phone: Start: 05-21-2023 End: 05-21-2023 Patient encounter procedure [facility] Work Phone: Start: 05-20-2023 End: 05-20-2023 ambulatory SHAWNA RUMNAFISAG [facility] Start: 05-19-2023 End: 05-19-2023 [facility]ulatory [facility] Start: 05-12-2023 Telephone encounter Deepika Robledo MD Work Phone: [facility] Start: 05-06-2023 End: 05-06-2023 ambulatory SHAWNA EDWARG [facility] Start: 05-06-2023 End: 05-06-2023 Subsequent hospital visit by physician Rojas [facility]ano [facility] Comment on above: Arrived Start: 05-05-2023 End: 05-05-2023 ambulatory SHAW[facility] Start: 04-30-2023 Emery Fulton RN [facility] Start: 04-28-2023 End: 04-28-2023 ambulatory GAURAV SELLERS [facility] Start: 04-28-2023 End: 04-28-2023 Office outpatient visit 25 minutes Gaurav CALVO Work Phone: [facility] Comment on above: 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 (Primary Dx) Start: 04-21-2023 End: 04-21-2023 ambulatory SHAWNA DARIOKYG [facility] Start: 04-20-2023 End: 04-20-2023 Emergency department patient visit [facility] ED Comment on above: Closed head injury, initial encounter (Primary Dx); Fall due to slipping on ice or snow, initial encounter; Acute cervical myofascial strain, initial encounter Start: 04-16-2023 ambulatory Myrtle Cerna Facility: [facility] Start: 04-07-2023 End: 04-07-2023 ambulatory SHAWNA RUMSCHLAG [facility] Start: 03-31-2023 Emery Clay RN [facility] Start: 03-27-2023 End: 03-27-2023 ambulatory PETE SILVER [facility] Start: 03-24-2023 End: 03-24-2023 [facility] Start: 03-19-2023 End: 03-19-2023 ambulatory GABY JUNE Not Available Start: 03-18-2023 Telephone encounter Jan Peterson [facility] Start: 03-18-2023 End: 03-18-2023 ambulatory NON STAFF [facility] Other Start: 03-18-2023 Non-patient / Non-visit MD Yo Blank Work Phone: [facility] Work Phone: Start: 03-17-2023 End: 03-17-2023 ambulatory Jan Garg Other [employer] Other Start: 03-17-2023 Telephone encounter Jan Peterson [facility] Start: 03-16-2023 Encounter for genera l adult medical examination without abnormal findings [facility] Start: 03-16-2023 End: 03-16-2023 ambulatory RORY DRIVER [facility] Start: 03-16-2023 End: 03-16-2023 ambulatory LULY ENGLISH Not Available Start: 03-10-2023 End: 03-10-2023 ambulatory SHAWNA RUMSCHLAG [facility] Start: 03-10-2023 End: 03-10-2023 Subsequent hospital visit by physician [facility] Comment on above: Arrived Start: 03-05-2023 (FCCCWMNF/U) Weight Management f/u Gayathri Adams [facility] Start: 03-05-2023 End: 03-05-2023 ambulatory Shawna Darioviviane [facility] Other Start: 03-05-2023 Registered Recurring MD Monserrat Blank Work Phone: [facility] Work Phone: Start: 03-02-2023 End: 03-02-2023 Emergency department patient visit Sil Sullivan DO Work Phone: [facility] ED Comment on above: Constipation, unspec ified constipation type (Primary Dx) Start: 02-26-2023 End: 02-26-2023 ambulatory Jan Garg Other [employer] Other Start: 02-26-2023 Telephone encounter Jan Peterson [facility] Start: 02-20-2023 Telephone encounter Argenis Storm RN [facility] Comment on above: Medication, DME Start: 02-18-2023 End: 02-18-2023 ambulatory Jan Garg Other [employer] Other Start: 02-18-2023 Telephone encounter Jan Peterson [facility] Start: 02-10-2023 Telephone encounter Margaux Olea [facility] Start: 02-05-2023 End: 02-05-2023 ambulatory Jan Garg Other [employer] Other Start: 02-05-2023 Office outpatient visit 15 minutes Jan Garg [facility] Start: 01-15-2023 (FCCCWMNF/U) Weight Management f/u Gayathri Adams [facility] Start: 01-15-2023 End: 01-15-2023 ambulatory Gayathri Adams Other [employer] Other Start: 01-07-2023 End: 01-07-2023 ambulatory Jan Garg Other [employer] Other Start: 01-07-2023 Office outpatient visit 15 minutes Jan Garg [facility] Start: 09-25-2022 End: 01-16-2023 ambulatory PROPERTY [employer] CASUALTY INSURANCE AGENT YUE GRANADO Facility:[facility] Start: 09-25-2022 End: 01-15-2023 Recurring YUE GRANADO [facility] Start: 09-17-2022 End: 09-17-2022 ambulatory Gayathri Adams Other [employer] Other Start: 09-17-2022 Telephone encounter Gayathri Adams [facility] Start: 08-28-2022 ([facility] RD FU) [facility] F/ 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 Tamar Sosa [facility] Start: 08-28-2022 End: 08-28-2022 ambulatory Tamar Sosa Other [employer] Other Start: 07-29-2022 [facility] Weight Management f/u Gayathri Brooklynly [facility] Start: 07-29-2022 End: 07-29-2022 ambulatory Gayathri Brooklynly Other [employer] Other Start: 05-20-2022 [facility] Weight Management f/u Gayathri Scally [facility] Start: 05-20-2022 End: 05-20-2022 ambulatory Gayathri Brooklynly Other [employer] Other Start: 05-19-2022 End: 05-19-[address] ALICIA PRESTON . Facility:[facility] Start: 05-07-2022 End: 05-08-[address] DOCTOR ARREOLA Facility:[facility] Start: 04-09-2022 End: 04-09-2022 ambulatory Gayathri Adams Other [employer] Other Start: 04-09-2022 Telephone encounter Gayathri Adams [facility] Start: 04-08-2022 ([facility] WMNI) WMN Initial Provider Tamar Sosa [facility] Start: 04-08-2022 ([facility]) Weight Management f/u Gayathri Angie [facility] Start: 04-08-2022 End: 04-08-2022 ambulatory Tamar Fitt Other [employer] Other Start: 02-26-2022 End: 02-26-2022 ambulatory Tamar Fitt Other [employer] Other Start: 02-26-2022 IBT FOR OBESITY GROU P 2-10 30M Tamar Sosa [facility] Start: 02-25-2022 ([facility]) Weight Management f/u Gayathri Adams [facility] Start: 02-25-2022 End: 02-25-2022 ambulatory Gayathri Adams Other [employer] Other Start: 02-17-2022 End: 02-18-2022 ambulatory RORY KOOJOJO Facility:[facility] Start: 01-29-2022 End: 01-30-2022 ambulatory JOY Reis [facility] Facility:[facility] Start: 01-14-2022 ([facility]) Weight Management f/u Gayathri Adams [facility] Start: 01-14-2022 End: 01-14-2022 ambulatory Gayathri Adams Other [employer] Other Start: 12-05-2021 End: 12-05-2021 ambulatory Gayathri Adams Other [employer] Other Start: 12-05-2021 Telephone encounter Gayathri [facility] Start: 12-04-2021 End: 12-04-2021 ambulatory Gayathri Adams Other [employer] Other Start: 12-04-2021 [facility] Start: 10-29-2021 End: 10-29-2021 ambulatory Yo Ruizkikeyuliya Other [employer] Other Start: 10-29-2021 Patient encounter procedure Yo Blank [facility] Start: 10-22-2021 End: 10-22-2021 Emergency department patient visit Shawna Luis Enrique MARQUEZ Work Phone: [facility] ED Comment on above: Acute diffuse otitis externa of left ear (Primary Dx) Start: 10-11-2021 End: 10-12-2021 Emergency department patient visit Daniel Adkins MD Work Phone: [facility] ED Comment on above: Pilonidal cyst (Prim romero Dx) Start: 11-21-2016 End: 11-26-2016 Ambulatory [facility] Facility:[facility] Procedures Date Procedure Procedure Detail Performing Clinician Start: 05-25-2023 Microscopic observat ion [Identifier] in Cervix by Cyto stain Deepika Robledo MD Work Phone: Start: 04-20-2023 Ct cervical spine w/ o contrast material Precious Urbina EDITOR MANAGING NEWSPAPER - PROPERTY AND CASUALTY INSURANCE AGENT Work Phone: Start: 04-20-2023 Ct head/brain w/o co ntrast material Preicous Octavio Urbina EDITOR MANAGING NEWSPAPER - PROPERTY AND CASUALTY INSURANCE AGENT Work Phone: Start: 05-02-2022 Microalbumin [Mass/v olume] in Urine by Test strip Patricia Clay RN Start: 05-02-2020 Adult depression scr eening assessment Argenis Storm RN Start: 08-30-2016 Cholecystectomy YUE PARISH Start: 01-03-2013 nasal surgery YUE ALVARENGA RS Tonsillectomy YUE GRANADO Plan of Treatment Date Care Activity Detail Author Start: 05-24-2026 Screening for malignant neoplasm of cervix Pap Smear [facility] Start: 03-16-2025 Screening for malignant neoplasm of breast Breast cancer screen [facility] Start: 06-01-2024 Adult BMI Screening Adult BMI Screen ing [facility] Start: 04-28-2024 Adult BMI Screening Adult BMI Screen ing [facility] Start: 04-28-2024 Tobacco Screening Tobacco Screening [facility] Start: 03-16-2024 Adult BMI Screening Adult BMI Screen ing [facility] Start: 01-30-2024 Adult BMI Screening Adult BMI Screen ing [facility] Start: 01-30-2024 Tobacco Screening Tobacco Screening [facility] Start: 11-01-2023 Influenza vaccination Influenza Vacc ine [facility] Start: 10-08-2023 End: 10-08-2023 Patient encounter procedure 10/08/2023 9:00 AM EDT Office Visit [facility] [address] [facility] [address] [place] [address] Dwayne Khoury MD [address] [place] [address] [facility] Start: 10-01-2023 Influenza vaccination Flu vaccine (# 1) [facility] Start: 09-01-2023 End: 09-01-2023 Patient encounter procedure 09/01/2023 10:30 AM EDT Appointment [facility] Physical Therapy [address] [place] [phone] Osito Rowan [facility] Physical Therapy Start: 08-26-2023 End: 08-26-2023 Patient encounter procedure 08/26/2023 2:30 PM EDT Appointment [facility] Physical Therapy [address] [place] [address] [phone] Kofi Villegas, PT [facility] Physical Therapy Start: 08-18-2023 End: 08-18-2023 Patient encounter procedure 08/18/2023 9:45 AM EDT Appointment [facility] Physical Therapy [address] [place] [phone] Osito Rowan [facility] Physical Therapy Start: 08-11-2023 End: 08-11-2023 Patient encounter procedure 08/11/2023 1:15 PM EDT Appointment [facility] Physical Therapy [address] [place] [phone] Jan Olmstead, PT DRY NEEDLING [facility] Physical Therapy Comment on above: DRY NEEDLING Start: 08-04-2023 End: 08-04-2023 Patient encounter procedure 08/04/2023 4:15 PM EDT Appointment [facility] Physical Therapy [address] [place] [phone] Osito Rowan [facility] Physical Therapy Start: 06-03-2023 End: 06-03-2023 Patient encounter procedure 06/03/2023 3:30 PM EDT Appointment [facility] Physical Therapy [address] [place] [phone] Osito Rowan [facility] Physical Therapy Start: 06-02-2023 End: 06-02-2023 Patient encounter procedure [facility] Physical Therapy Comment on above: DRY NEEDLING- dont m ove coordinates with son's appt Start: 05-23-2023 Hepatitis B vaccine (3 of 3 - Hep B Twinrix 3-dose series) Hepatitis B vaccine (3 of 3 - Hep B Twinrix 3-dose series) [facility] Start: 05-20-2023 End: 05-20-2023 Patient encounter procedure 05/20/2023 3:15 PM EDT Appointment [facility] Physical Therapy [address] [place] [phone] Rojas Altamirano PTA [facility] Physical Therapy Start: 05-19-2023 End: 05-19-2023 Patient encounter procedure 05/19/2023 12:45 PM EDT Appointment [facility] Physical Therapy [address] [place], [place] [phone] Rebecca Skinner, PT DRY NEEDLING- dont move coordinates with son's apptDRY NEEDLING [facility] Physical Therapy Comment on above: DRY NEEDLING- dont m ove coordinates with son's apptDRY NEEDLING Start: 05-05-2023 End: 05-05-2023 Patient encounter procedure [facility] Physical Therapy Comment on above: DRY NEEDLING DRY NEEDLING- jd gibson coordinates with son's appt Start: 05-03-2023 Urine screening for protein Urine Microalbumin [facility] Start: 04-28-2023 End: 04-28-2023 Patient encounter procedure 04/28/2023 10:45 AM EST Office Visit [facility] [address] [place] [phone] Gaurav Sellers PA [address] [place], [place] [phone] [facility] Start: 04-21-2023 End: 04-21-2023 Patient encounter procedure [facility] Physical Therapy Comment on above: DRY NEEDLING DRY NEEDLING- jd gibson coordinates with son's appt Start: 04-07-2023 End: 04-07-2023 Patient encounter procedure 04/07/2023 2:15 PM EST Appointment [facility] Physical Therapy [address] [place] [address] Rebecca Skinner PT DRY NEEDLING [facility] Physical Therapy Comment on above: DRY NEEDLING Start: 03-27-2023 End: 03-27-2023 Admission to same day surgery center 03/27/2023 1:27 PM EST - 03/27/2023 1:33 PM EST Surgery [facility] [address] [place] [id number] Pete Silver MD [address] [place], [place] [phone] INJECTION BLOCK SACROILIAC JOINT [82267 (CPT )] [facility] Comment on above: INJECTION BLOCK SACR OILIAC JOINT [63628 (CPT )] Start: 03-27-2023 End: 03-27-2023 Inject si joint arthrgrphy&/anes/ster oid w/monika INJECTION BLOCK SACROILIAC JOINT Disorder of sacrum 03/27/2023 1:27 PM EST [facility] Start: 03-27-2023 Subsequent hospital visit by physician 03/27/2023 1:27 PM EST Hospital Encounter [facility] [address] [place] [phone] Pete Silver MD [address] [place] [address] [facility] Start: 03-24-2023 End: 03-24-2023 Patient encounter procedure 03/24/2023 2:15 PM EST Appointment [facility] Physical Therapy [address] [place] [phone] Rebecca Skinner, PT DRY NEEDLING [facility] Physical Therapy Comment on above: DRY NEEDLING Start: 03-19-2023 [facility] Start: 03-16-2023 End: 03-16-2023 Patient encounter procedure 03/16/2023 11:45 AM EST Appointment [facility] Mammogram DEXA [address] [place] [phone] [facility] Start: 03-10-2023 End: 03-10-2023 Patient encounter procedure 03/10/2023 2:30 PM EST Appointment [facility] Physical Therapy [address] [place] [address] [phone] Rebecca Skinner, PT [facility] Physical Therapy Start: 09-30-2022 Influenza vaccination Flu vaccine (# 1) [facility] Start: 10-31-2021 Influenza vaccination Flu vaccine (# 1) [facility] Start: 09-03-2021 DTaP,Tdap and Td Vaccines (1 - Tdap) DTaP,Tdap and Td Vaccines (1 - Tdap) [facility] Start: 09-03-2021 DTaP/Tdap/Td vaccine (1 - Tdap) DTaP/Tdap/Td vaccine (1 - Tdap) [facility] Start: 03-03-2022 Depression Screening Depression Scre ening [facility] Start: 2020 Lipid panel Lipids [facility] Start: 01-04-2020 Diabetic foot examination Diabetic Foot Exam [facility] Start: 09-25-2015 Diabetes screen Diabetes screen [facility] Start: 2010 Screening for malignant neoplasm of cervix [facility] Start: 2001 Screening for malignant neoplasm of cervix Pap smear [facility] Start: 09-25-1999 DTaP/Tdap/Td vaccine (1 - Tdap) DTaP/Tdap/Td vaccine (1 - Tdap) [facility] Start: 1998 Adult BMI Follow Up Plan Adult BMI Follow Up Plan [facility] Start: 1998 Hepatitis C screening Hepatitis C sc reen [facility] Start: 09-25-1995 HIV screening HIV screen [facility] Start: 1992 Depression Screen Depression Screen [facility] Start: 1992 Depression Screening Depression Scre [facility] Start: 1981 Varicella vaccine (1 of 2 - 2-dose childhood series) Varicella vaccine (1 of 2 - 2-dose childhood series) [facility] Start: 03-27-1981 COVID-19 Vaccine (#1) COVID-19 Vacci ne (#1) [facility] Start: 1980 Glaucoma screening Diabetic Op hthalmology Exam [facility] Start: 1980 Hepatitis B vaccine (1 of 3 - 3-dose series) Hepatitis B vaccine (1 of 3 - 3-dose series) [facility] Inject si joint arthrgrphy&/anes/ster oid w/monika INJECTION BLOCK SACROILIAC JOINT Disorder of sacrum [facility] Njx dx/ther agt pvrt facet jt lmbr/sac 1 level INJECTION BLOCK NERVE MEDIAL BRANCH Lumbosacral spondylosis without myelopathy [facility] Immunizations Immunization Date Immunization Notes Care Provider Fa cilijack 12-22-2022 influenza virus vaccine, unspecified formulation Deepika Robledo MD Work Phone: [facility] 12-19-2018 influenza, injectabl e, quadrivalent, preservative free Argenis Storm ZEYNEP [facility] 12-02-2017 influenza, injectabl e, quadrivalent, preservative free Argenis Storm ZEYNEP [facility] 12-02-2017 pneumococcal conjuga te vaccine, 13 valent Argenis Turkyuri ADHIKARI [facility] 10-10-2016 influenza virus vaccine, unspecified formulation Argenis Burkeyuri ADHIKARI [facility] 12-19-2013 influenza virus vaccine, live, attenuated, for intranasal use Argenis Storm RN [facility] 12-03-2012 influenza virus vaccine, whole virus Argenis Turkyuri ADHIKARI [facility] 12-29-2011 influenza virus vaccine, whole virus Argenis Turkyuri ADHIKARI [facility] 12-23-2010 influenza virus vaccine, whole virus Argenis Burkeyuri ADHIKARI [facility] 12-18-2008 influenza virus vaccine, whole virus Argenisnav Turkyuri [facility] Payers Date Payer Category Payer Self-pay [id number] 2002 Medicaid [employer] [employer] [id number] 2002-Present [phone] [address] [place] [address] [id number] 1980 Unknown [id number] 1980 Unknown [id number] 2.840.1.083597.3.579.2.593 1980 Unknown [id number] 2.840.1.938808.3.579.2.59 1980 Unknown [id number] 2.840.1.743926.3.579.2.593 1980 Unknown [id number] 2.16840.1.357844.3.579.2.727 1980 Unknown [id number] 2.16840.1.938308.3.579.2.1285 1980 Unknown [id number] 2.16.840.1.792386.3.579.2.1285 1980 Unknown [id number] 2.16.840.1.923329.3.579.2.1285 1980 Unknown [id number] 2.16840.1.250937.3.579.2.1258 1980 Unknown [id number] 2.16840.1.573993.3.579.2.1258 1980 Unknown [id number] 2.16840.1.821817.3.579.2.1258 1980 Unknown [id number] 2.16840.1.285686.3.579.2.1258 1980 Unknown [id number] 2.840.1.486024.3.579.2.1285 1980 Unknown [id number] 2.840.1.174373.3.579.2.1285 1980 Unknown [id number] 2.840.1.360633.3.579.2.1285 1980 Unknown [id number] 2.840.1.861215.3.579.2.1285 1980 Unknown [id number] 2.840.1.397736.3.579.2.1285 1980 Unknown [id number] 2.840.1.147107.3.579.2.1285 1980 Unknown [id number] 2.16840.1.146606.3.579.2. 1980 Unknown [id number] 2.16840.1.953788.3.579.2. 1980 Unknown [id number] 2.16840.1.875893.3.579.2. 1980 Unknown [id number] 2.16840.1.667716.3.579.2. 1980 Unknown [id number] 2.840.1.439203.3.579.2. 1980 Unknown [id number] 2.840.1.868995.3.579.2. 1980 Unknown [id number] 2.840.1.240900.3.579.2. 1980 Unknown [id number] 2.840.1.662466.3.579.2. 1980 Unknown [id number] 2.840.1.208964.3.579.2. 1980 Unknown [id number] 2.0.1.759540.3.579.2. 1980 Unknown [id number] 2.840.1.344219.3.579.2. 1980 Unknown [id number] 20.1.465171.3.579.2. 1980 Unknown [id number] 2.840.1.277496.3.579.2. 1980 Unknown [id number] 20.1.303246.3.579.2. 1980 Unknown [id number] 2.840.1.863448.3.579.2. 1980 Unknown [id number] 840.1.863746.3.579.2. 1980 Unknown [id number] 2.840.1.068031.3.579.2. 1980 Unknown [id number] 2.840.1.729768.3.579.2. 1980 Unknown [id number] 2.840.1.728397.3.579.2. 1980 Unknown [id number] 2.840.1.416155.3.579.2. 1980 Unknown [id number] 2.16.840.1.507427.3.579.2.173 1980 Unknown [id number] 2.16.840.1.050842.3.579.2.173 1980 Unknown [id number] 1980 Unknown [id number] 1980 Unknown [id number] 1980 Unknown [id number] 1980 Unknown [id number] 1980 Unknown [id number] 1980 Unknown [id number] 1959 Medicaid [id number] Unknown [id number] Unknown [id number] Unknown [id number] Social History Date Type Detail Facility Start: 09-02-2017 End: 05-21-2023 Tobacco smoking status [facility] Never smoked tobacco [employer] Start: 09-02-2017 End: 01-28-2022 Tobacco use and exposure Smokeless tobacco non-user [employer] Phone: Start: 10-11-2021 End: 04-28-2023 Alcohol intake Current non-drinker of alcohol (finding) [employer] Phone: Start: 1980 Sex Assigned At Not on file B ON [facility] Phone: Start: 10-01-2021 End: 10-22-2021 Exposure to SARS-CoV-2 (event) Not sure [facility] Phone: Start: 03-13-2020 End: 10-11-2021 Sex Assigned At [facility] Tobacco smoking status Never [facility] Start: 03-13-2020 End: 10-11-2021 History of Social function [facility] Start: 1980 Sex Assigned At Female F [facility] Medical Equipment Procedure Code Equipment Code Equipment Origin al Text Equipment Identifier Dates [place] Sut 5.5mm 2 Ft Crkscr Fbrwr Shldr 3 Pk 14.7mm Strl Ea=Bill-Only Rpl [id number] - [id number] Start: 05-15-2022 Use to test BLOO D SUGAR TWICE DAILY [id number] Start: 05-28-2020 Use to test BLOO D SUGAR TWICE DAILY, Diagnosis: E11.9 [id number] Start: 03-08-2020 Clinical Notes 10-22-2021 to 09-22-2023 Filomena Raphael - 09/22/2023 1:15 PM Kofi Lerma, PT - 08/26/2023 2:30 PM Filomena Nassar - 08/21/2023 10:45 AM Jan Baca, PT - 08/21/2023 10:45 AM EDTPatient InstructionsAttachments Note Date & Type Note Facility 09-22-2023 History of Presen t illness Narrative Physical Therapy Called to say she would be a few minutes late for her appt 09/22/23 @ 1:15. . Called PT back at ten minutes late and asked where she was. Said she was still clear across town. We let her know we would not be able to see her due to our late policy. She said OH MY GOD! THAT'S RIDICULOUS. THIS IS NOT OK! Told her sorry but she was over ten minutes late and we would see her at her next appt. documented in this encounter [facility] 08-26-2023 History of Presen t illness Narrative [facility] Outpatient Physical Therapy Daily Note Patient: Karma Whitehead : 1980 CSN #: [id number] Referring Physician: Shawna Mcfadden DO Date: 08/26/2023 Diagnosis: Z76.89 - Persons encountering health services in other specified circumstances Treatment Diagnosis: pain in cervical and LB Onset Date: 02/18/23 PT Insurance Information: [employer] Total # of Visits Approved: 24 Per Physician Order Total # of Visits to Date: 19 No Show: 0 Canceled Appointment: 0 08/28/23 Plan of Care/Recert Due Pre-Treatment Pain: 03/11 Subjective: Pt reports not much neck pain since the chiropractor just adjusted her neck today. Exercises: Exercise 1: HEP chin tuck, shrugs, rolls, scap retract, yes/no's UT stretching Exercise 2: yes/no 15x ea Exercise 3: Shrugs/ rolls/ retracs 15xea Exercise 5: UT/ LS stretch 3x30 Manual: Soft Tissue Mobilizaton: heated thermaprobe to cervical and thoracic paraspinals x8 min to decrease tone Other: IDN to low back B paraspinals, R piriformis static placement x10 min to promote healing response Assessment Assessment: Focused on DTM with heated thermoprobe the cervical and thoracic paraspinals and IDN to lower back and R piriformis per patient request. Held other modalities per patient since she is not feeling too bad today. Activity Tolerance Activity Tolerance: Patient tolerated treatment well Patient Education Continue stretches to improve neck mobility Pt verbalized/demonstrated good understanding: [x] Yes [] No, pt required further clarification. Post Treatment Pain: 03/11 Plan Plan Frequency: up to 4 visits, every other week Plan weeks: 6 Goals (Total # of Visits to Date: 19) Short Term Goals Time Frame for Short Term Goals: 3 visits Short Term Goal 1: Initiate HEP and progress as tolerated including reviewing proper posture.-met Short Term Goal 2: Pt will report relief in her complaints of pain in the cervical area and her LB area.-met Usp Goals Time Frame for [employer] Goals : 6 visits Usp Goal 1: Pt will be independent and compliant with exercise while maintaining improved posture 50% of the time. Usp Goal 2: Pt will be able to perform full cervical ROM without increase complaints of baseline pain with initiation to demonstrate imporved control of pain. [facility] [employer] Goal 3: Pt will report 40% improvement in overall complaints and improved tolerance to her job tasks. Minutes Tracking: Time In: 1430 Time Out: 1500 Minutes: 30 Timed Code Treatment Minutes: 29 Minutes Kofi Villegas, PT, DPT Date: 08/26/2023 documented in this encounter [facility] 08-21-2023 History of Presen t illness Narrative Physical Therapy Disregard the no show note on 08/17. This was added in error. [facility] Outpatient Physical Therapy Daily Note Patient: Karma Whitehead : 1980 CSN #: [id number] Referring Physician: Shawna Mcfadden DO Date: 08/21/2023 Treatment Diagnosis: pain in cervical and LB Onset Date: 02/18/23 PT Insurance Information: [place] Total # of Visits Approved: 24 Per Physician Order Total # of Visits to Date: 18 No Show: 0 Canceled Appointment: 0 08/28/23 Plan of Care/Recert Due Pre-Treatment Pain: 4/10 Subjective: Patient reports 4/10 neck pain coming into therapy today. She reports pain isn't too bad following a hot shower prior to PT. Exercises: Exercise 2: yes/no 15x ea Exercise 3: Shrugs/ rolls/ retracs 15xea Exercise 5: UT/ LS stretch 3x30 Modality: Modality Flow Sheet: Performed (X) Tx Modality X Cervical Traction: Pull: Weight __26__ Rest _12___ Hold Time: __45___ sec Rest: _15___ Total Tx Time: _15___min Assessment Body Structures, Functions, Activity Limitations Requiring Skilled Therapeutic Intervention: Decreased endurance, Increased pain, Decreased posture Assessment: Patient completed gentle ROM exercises with reports of scapular pain with scapular retractions. She requested cervical spine traction to decrease pain and symptoms. Activity Tolerance Activity Tolerance: Patient tolerated treatment well Patient Education Patient Education: HEP Pt verbalized/demonstrated good understanding: [x] Yes [] No, pt required further clarification. Post Treatment Pain: 06/09 Plan Plan Frequency: up to 4 visits, every other week Plan weeks: 6 Goals (Total # of Visits to Date: 18) Short Term Goals Time Frame for Short Term Goals: 3 visits Short Term Goal 1: Initiate HEP and progress as tolerated including reviewing proper posture.-met Short Term Goal 2: Pt will report relief in her complaints of pain in the cervical area and her LB area. [facility] [employer] Goals Time Frame for [employer] Goals : 6 visits [employer] Goal 1: Pt will be independent and compliant with exercise while maintaining improved posture 50% of the time. Usp Goal 2: Pt will be able to perform full cervical ROM without increase complaints of baseline pain with initiation to demonstrate imporved control of pain. [facility] [employer] Goal 3: Pt will report 40% improvement in overall complaints and improved tolerance to her job tasks. Usp Goal 4: Pt kvng UE strength will be 5/5 without increasing pain complaints to assist in tolerance of lifting and carrying. Minutes Tracking: Time In: 1045 Time Out: 1116 Minutes: 31 Timed Code Treatment Minutes: 29 Minutes Jan Olmstead PT, DPT Date: 08/21/2023 documented in this encounter [facility] 08-11-2023 History of Presen t illness Narrative [facility] Outpatient Physical Therapy Daily Note Patient: Karma Whitehead : 1980 CSN #: [id number] Referring Physician: Shawna Mcfadden DO Date: 08/11/2023 Diagnosis: Z76.89 - Persons encountering health services in other specified circumstances Treatment Diagnosis: pain in cervical and LB Onset Date: 02/18/23 PT Insurance Information: [facility] Total # of Visits Approved: 24 Per Physician Order Total # of Visits to Date: 17 No Show: 0 Canceled Appointment: 0 08/28/23 Plan of Care/Recert Due Pre-Treatment Pain: 08/09 Subjective: Patient reports 08/09 cervical spine and R LBP coming into therapy today. She reports interventions give her a week's worth of relief, but is unable to maintain the relief. Patient was 15 minutes late to her appointment. Manual: Soft Tissue Mobilizaton: heated thermaprobe to cervical spine and lumbar spine x8 min to decrease tone Other: IDN to low back, L piriformis, and cervical spine static placement with estim x5 min Assessment Body Structures, Functions, Activity Limitations Requiring Skilled Therapeutic Intervention: Decreased endurance, Increased pain, Decreased posture Assessment: Continued with manual interventions including dry needling and heated thermoprobe which the patient reports gives her about a week of relief before pain returns. Activity Tolerance Activity Tolerance: Patient tolerated treatment well Patient Education Patient Education: HEP Pt verbalized/demonstrated good understanding: [x] Yes [] No, pt required further clarification. Post Treatment Pain: 08/09 Plan Plan Frequency: up to 4 visits, every other week Plan weeks: 6 Goals (Total # of Visits to Date: 17) Short Term Goals Time Frame for Short Term Goals: 3 visits Short Term Goal 1: Initiate HEP and progress as tolerated including reviewing proper posture.-met Short Term Goal 2: Pt will report relief in her complaints of pain in the cervical area and her LB area. Usp Goals Time Frame for [facility] [employer] Goals : 6 visits Usp Goal 1: Pt will be independent and compliant with exercise while maintaining improved posture 50% of the time. [facility] [employer] Goal 2: Pt will be able to perform full cervical ROM without increase complaints of baseline pain with initiation to demonstrate imporved control of pain. Usp Goal 3: Pt will report 40% improvement in overall complaints and improved tolerance to her job tasks. [employer] Goal 4: Pt kvng UE strength will be 5/5 without increasing pain complaints to assist in tolerance of lifting and carrying. Minutes Tracking: Time In: 1330 Time Out: 1400 Minutes: 30 Timed Code Treatment Minutes: 28 Minutes Jan Olmstead PT, DPT Date: 08/11/2023 documented in this encounter [facility] 07-14-2023 History of Presen t illness Narrative Physical Therapy [facility] Inpatient/Observation/Outpatient Rehabilitation Date: 07/14/2023 Patient Name: Karma Whitehead [] Inpatient Acute/Observation [x] Outpatient : 1980 [...] does not require skilled services due to: Therapist/Solution Director will attempt to see this patient, at our earliest opportunity. Filomena Raphael Date: 07/14/2023 documented in this encounter [facility] 06-02-2023 History of Presen t illness Narrative [...] Year discontinued? N/a Are you of Ashkenazi Taoism decent? no Family history of cancer: relation [...] or lymphadenopathy. I reviewed notes from her terminal manager dated 05/05/2023, imaging including mammogram and ultrasound dated 03/16/2023 and 03/25/2023, history form dated 06/02/2023. Past Medical History Past Medical History: Diagnosis Date Anxiety Asthma Back pain Bipolar 1 disorder ([facility]) Breast disorder enlarged lymph nodes in both breast Carpal tunnel syndrome Chronic pain disorder Deep vein thrombosis ([facility]) blood clot in left arm Dental disease [...] night 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 ([facility]) 11/10/2017 Visual impairment Past Surgical History Past Surgical History: Procedure Laterality Date ANKLE SURGERY Left x2 ARTHROSCOPY SHOULDER WITH ROTATOR CUFF REPAIR Right 05/15/2022 Performed by Chepe Ingram MD at [facility] Right 05/15/2022 Performed by Chepe Ingram MD at [facility] DECOMPRESSION OF SUBACROMIAL SPACE WITH PARTIAL ACROMIOPLASTY Right 05/15/2022 Performed by Chepe Ingram MD at [facility] INJECTION BLOCK EPIDURAL STEROID LUMBAR/SACRAL: L 4/5 WU N/A 04/22/2021 Performed by Pete Silver MD at [facility] INJECTION BLOCK SACROILIAC JOINT Left 03/27/2023 Performed by Pete Silver MD at [facility] CERVICAL OR THORACIC EPIDURAL BLOCK WITH STEROIDS: C67 WU N/A 01/29/2018 Performed by Pete Silver MD at [facility] LUMBAR OR SACRAL EPIDURAL BLOCK WITH STEROIDS: L45 WU N/A 10/15/2018 Performed by Pete Silver MD at [facility] MEDIAL BRANCH NERVE BLOCK: bilat L45 51 Bilateral 07/30/2018 Performed by Pete Silver MD at [facility] SPINE TRANSFORAMINAL: left C 5,6 Nroot Left 01/09/2023 Performed by Pete Silver MD at [facility] LAPAROSCOPIC CHOLECYSTECTOMY N/A 09/16/2016 Performed by Juan Ramon Jean MD at [facility] LIVER BIOPSY EMA PROCEDURE Right 05/15/2022 Performed by Chepe Ingram MD at [facility] NASAL SURGERY REPAIR HERNIA UMBILICAL 09/16/2016 Performed by Juan Ramon Jean MD at [facility] TONSILLECTOMY Family History Family History Problem Relation [...] 5 blood-glucose meter (TRUE METRIX GLUCOSE METER) [facility], use to test BLOOD SUGAR TWICE DAILY, [...] , Rfl: lancets (UNILET LANCET) 28 gauge [facility], Use to test BLOOD SUGAR TWICE DAILY, [...] on 04/28/2023), Disp: 30 tablet, Rfl: 0 tkfllpji-okzi-TT-calcium &mins (THERAGRAN-M) 9 mg iron-400 mcg tablet, [...] a bilateral screening mammogram on 03/16/[address] [facility]. Her breast tissue is almost entirely fatty. There was a 1 cm mass in the posterior upper-outer right breast 17 cm from the nipple. They thought this was likely a lymph node but recommended that she return for additional imaging. She had the imaging done in [place]. They did a right diagnostic mammogram and [...] with any concerns. documented in this encounter [facility] 05-12-2023 Miscellaneous Notes Spoke with patient and scheduled with Dr. Robledo 4/2. Patient voiced understanding of appointment details. Patient was offered sooner dates but declined per her availability. documented in this encounter [facility] 05-12-2023 Telephone encounter Note Spoke with patient and scheduled with Dr. Robledo 4/2. Patient voiced understanding of appointment details. Patient was offered sooner dates but declined per her availability. [facility] 04-30-2023 Miscellaneous Notes Last Office Visit: 04/28/2023 Next Office Visit: Visit date not found Last Urine Drug Screen: No results found for: BENZOSCRN OARRS appropriate documented in this encounter [facility] 04-30-2023 Telephone encounter Note Last Office Visit: 04/28/2023 Next Office Visit: Visit date not found Last Urine Drug Screen: No results found for: BENZOSCRN OARRS appropriate [facility] 04-28-2023 History of Presen t illness Narrative [facility] [address] [place] [address] Patient: Karma Banegas Sex: female : 1980 Age: 42 y.o. PCP: SHAWNA MCFADDEN, 04/28/2023 Karma Banegas is here for a(n) [...] spine (09/2022 last visit for 11/05/22) at [facility] with no relief Back: 10/15/18 L4/5 WU [...] Anxiety Asthma Back pain Bipolar 1 disorder ([facility]) Breast disorder enlarged lymph nodes in both breast Carpal tunnel syndrome Chronic pain disorder Deep vein thrombosis ([facility]) blood clot in left arm Dental disease [...] night 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 ([facility]) 11/10/2017 Visual impairment Past Surgical History: Procedure Laterality Date ANKLE SURGERY Left x2 ARTHROSCOPY SHOULDER WITH ROTATOR CUFF REPAIR Right 05/15/2022 Performed by Chepe Ingram MD at [facility] DEBRIDEMENT Right 05/15/2022 Performed by Chepe Ingram MD at [facility] DECOMPRESSION OF SUBACROMIAL SPACE WITH PARTIAL ACROMIOPLASTY Right 05/15/2022 Performed by Chepe Ingram MD at [facility] INJECTION BLOCK EPIDURAL STEROID LUMBAR/SACRAL: L 4/5 WU N/A 04/22/2021 Performed by Pete Silver MD at [facility] INJECTION BLOCK SACROILIAC JOINT Left 03/27/2023 Performed by Pete Silver MD at [facility] CERVICAL OR THORACIC EPIDURAL BLOCK WITH STEROIDS: C67 WU N/A 01/29/2018 Performed by Pete Silver MD at [facility] LUMBAR OR SACRAL EPIDURAL BLOCK WITH STEROIDS: L45 WU N/A 10/15/2018 Performed by Pete Silver MD at [facility] INJECTION MEDIAL BRANCH NERVE BLOCK: bilat L45 51 Bilateral 07/30/2018 Performed by Pete Silver MD at [facility] SPINE TRANSFORAMINAL: left C 5,6 Nroot Left 01/09/2023 Performed by Pete Silver MD at [facility] LAPAROSCOPIC CHOLECYSTECTOMY N/A 09/16/2016 Performed by Juan Ramon Jean MD at [facility] LIVER BIOPSY EMA PROCEDURE Right 05/15/2022 Performed by Chepe Ingram MD at [facility] NASAL SURGERY REPAIR HERNIA UMBILICAL 09/16/2016 Performed by Juan Ramon Jean MD at [facility] TONSILLECTOMY Allergies Allergen Reactions Metformin Severe hypoglycemia [...] accurate and complete. Peg Conrad CNA 04/28/23 1208 UMESH Hodge 04/30/23 1141 documented in this encounter [facility] 04-28-2023 Instructions Peg ConradCLAUDE - 04/28/2023 10:45 AM EST Facet Injection [...] nearest emergency room. documented in this encounter [facility] [employer] [facility] 04-20-2023 Hospital Discharg e instructions Precious Urbina APRN - CNP - 04/20/2023 1:50 PM EST Increase fluid Tylenol Motrin for cough Continue home medications The following attachments cannot be sent through Care Everywhere.Head Injury: Closed: General Info ([place])Cervical Strain ([place])documented in this encounter [facility] 03-31-2023 Miscellaneous Notes Patient calls today [...] medications prescribed to someone other than her. Guest Service Supervisor reiterated this to patient. Patient's pharmacy was confirmed with her. Order pended for review and signature. [facility] Tele[facility] encounter Note Patient calls today [...] are prescribed [facility] than [facility]. [facility] Telephone encounter Note Is she still taking prozac? What dosage? Any other antidepressants? [facility]23 Telephone encounter Note Call placed to patient to confirm whether or not she is taking Prozac or other antidepressants. Patient states she is taking 40 mg Prozac daily. That is the only antidepressant that she takes. She is prescribed Latuda and Lamictal to treat Bipolar. [facility]-31-2023 Telephone encounter Note Can try cymbalta 30mg once daily [facility] 03-31-2023 Telephone encounter Note Call placed to patient to inform her of provider's response. Patient is also educated not to take medications that are prescribed to someone other than her. Patient voices that she is aware that she should not be taking medications prescribed to someone other than her. Guest Service Supervisor reiterated this to patient. Patient's pharmacy was confirmed with her. Order pended for review and signature. [employer] 03-05-2023 Evaluation note Encounter Date Diagnosis Assessment [...] was counseling done by myself, Rhina ROBERTSON. [employer] Other 01-01-2024 Hospital Discharge instructions* Discharge Instructions* Sil Sullivan DO - 03/02/2023 7:49 PM EST Please follow-up with your GI doctor, trial enema at home, return to the ER for worsening abdominalpain, inability to pass gas, or nausea, vomiting * Attachments The following attachments cannot be sent through Care Everywhere. * Constipation ([place]) [facility] Miscellaneous Notes* Telephone Encounter - [...] when she was under his care in [place]. She is currently taking Meloxicam that helps [...] She states whatever . [facility] encounter Note* Telephone Encounter - [...] when she was under his care in [place]. She is currently taking Meloxicam that helps [...] add Dr. Silver on the note. [facility]. [facility]12-22-2023 Telephone encounter Note* Telephone Encounter - Pete Silver MD - 02/20/2023 10:04 AM EST Discussed with nurse, I agree with Fartun's treatment plan going forward. [facility]12-22-2023 Telephone encounter Note* Telephone Encounter - UMESH Hodge - 02/20/2023 10:04 AM EST No Rx for tramadol. I have never written prescription for bra so I would not know how to proceed with anything like that. [facility]12-22-2023 Telephone encounter Note* Telephone Encounter - Argenis Storm RN - 02/20/2023 10:04 AM EST Patient aware of response. She states whatever . [facility]12-20-2023 Evaluation note* Encounter Date Diagnosis Assessment Notes Treatment Notes Treatment Clinical Notes Jan, Constipation, unspecified constipation type (ICD-10 - K59.00) Jan, Constipation (ICD-10 - K59.00) [employer] 12-12-2023 Miscellaneous Notes* Telephone Encounter - [...] and has f/u appt [facility] encounter Note* Telephone Encounter - [...] pain is now related to sacroiliac joint. [facility]12-12-2023 Telephone encounter Note* Telephone Encounter - [...] sufficient reason to deny the current request. [facility]12-12-2023 Telephone encounter Note* Telephone Encounter - Alfredito William - 02/10/2023 8:18 AM EST GOT APPROVAL [facility]12-12-2023 Telephone encounter Note* Telephone Encounter - Maty Fulton RN - 02/10/2023 8:18 AM EST Pt is scheduled 03/27 for procedure and has f/u appt [facility] [id number] Evaluation note* Encounter Date Diagnosis Assessment Notes [...] R10.9) Jan, Rectal bleed (ICD-10 - K62.5) [employer] Other 11-16-2023 Evaluation note* Encounter Date Diagnosis [...] was counseling done by myself, Rhina ROBERTSON. [employer] Other 11-08-2023 Evaluation note* Encounter Date Diagnosis [...] HAVE PATIENT START DOCUSATE 3 CAPSULES DAILY. [employer] Other 06-29-2023 Evaluation note* Encounter Date Diagnosis Assessment Notes Treatment Notes Treatment Clinical Notes Jul, Obesity (ICD-10 - E66.9) Jul, BMI 34.0-34.9,adult (ICD-10 - Z68.34) Jul, Other Summary of Visi t: (A) discussed continuing to work on small goals until stress decreases and she has the energy to increase goals (B) discussed healhtier choices at [place]- food blog reviewed (C) reviewed food storage tips for keeping produce fresh longer Patient set the following goals: - NEW: continue to choose sugar free beverages- not reviewed [employer] Other 05-30-2023 Evaluation note* Encounter Date Diagnosis [...] was counseling done by myself, Rhina ROBERTSON. [employer] Other 03-21-2023 Evaluation note* Encounter Date Diagnosis [...] was counseling done by myself, Rhina ROBERTSON. [employer] Other 02-07-2023 Evaluation note* Encounter Date Diagnosis [...] set the following goals: not reviewed today [employer] Other 02-07-2023 Evaluation note* Encounter Date Diagnosis [...] was counseling done by myself, Rhina ROBERTSON. [employer] Other 12-28-2022 Evaluation note* Encounter Date Diagnosis [...] patient set personal goal using given handout. [employer] Other 12-27-2022 Evaluation note* Encounter Date Diagnosis [...] was counseling done by myself, Rhina ROBERTSON. [employer] Other 12-01-2022 NotePROCEDURE: XR ANKLE LT MIN [...] Electronically authenticated by: ONEL CLARK Date: 2022-01-29 22:30[facility]12[facility] NotePROCEDURE: XR ANKLE LT MIN 3 [...] Electronically authenticated by: ONEL CLARK Date: 2022-01-29 22:30[facility]11-15-2022 Evaluation note* Encounter Date Diagnosis Assessment [...] was counseling done by myself, Rhina ROBERTSON. [employer] Other 10-05-2022 Evaluation note* Encounter Date Diagnosis [...] was counseling done by myself, Rhina ROBERTSON. [employer] Other 08-30-2022 Evaluation note* Encounter Date Diagnosis Assessment Notes Treatment Notes Treatment Clinical Notes Sep, Fatty liver (ICD-10 - K76.0) ENCOURAGED WEIGHT LOSS Sep, Obesity (BMI 30-39.9) (ICD-10 - E66.9) [facility] [employer] Other 08-23-2022 Hospital Discharge instructions* Discharge Instructions* Stanley Almonte PA-C - 10/22/2021 2:03 PM EDT Follow-up with primary care doctor 7 to 10 days for reevaluation. Take Motrin 800 mg as directed with food. Start eardrops left ear as directed. Promptly return to emergency department for new, changing or worsening of symptoms or other concerns. [facility] [employer] Phone: evaluation + Plan note No data available for this section [facility]* Diagnosis Pilonidal cyst- Primary Pilonidal cyst without mention of abscess documented in this encounter [facility] [employer] Phone: evaluation note* Diagnosis Acute diffuse otitis externa of left ear- Primary documented in this encounter [facility] [employer] Phone: evalleczal noteNo InformationNortLECOM [facility] [employer] Other Evalusenva note* Diagnosis Constipation, unspecified constipation type- Primary documented in this encounter [facility] [employer] noteNo assessment information available [facility] Work Phone: Evaluation note* Diagnosis Closed head injury, initial encounter- Primary Fall due to slipping on ice or snow, initial encounter Acute cervical myofascial strain, initial encounter documented in this encounter [facility] [place] [facility]* Diagnosis Lumbosacral spondylosis without myelopathy- Primary [facility] Diagnosis Mass of upper outer quadrant of right breast- Primary Abnormal mammogram Abnormal mammogram, unspecified Symptomatic mammary hypertrophy [facility] Diagnosis Onset Date Resolution Status ADHD acute BMI 36.0-36.9,adult acute Constipation acute Diabetes mellitus with hyperglycemia acute Fatty liver acute IBS (irritable bowel syndrome) acute Obesity acute Shifting sleep-work schedule, affecting sleep acute Constipation acute Elevated liver function tests acute Fatty liver acute IBS (irritable bowel syndrome) acute [facility] Work Phone: history general Narrative - Reported* Type Description Date Medical History PTSD Medical History DIVERTICULITOUS Surgical History 2 BACK INJECTIONS 2015 Surgical History LEFT ANKLE 2002 Surgical History CHOLECYSTECTOMY Hospitalization History SEE ABOVE [employer] Other Hislnem general Narrative - Reported* Type Description Date Medical History PTSD Medical History DIVERTICULITOUS Medical History bipolar Medical History ADHD Surgical History 2 BACK INJECTIONS 2015 Surgical History LEFT ANKLE 2002 Surgical History CHOLECYSTECTOMY Surgical History nasal surgery Hospitalization History SEE ABOVE [employer] Other Hissbuw general Narrative - Reported* Type Description Date Medical History PTSD Medical History DIVERTICULITOUS Medical History bipolar Medical History ADHD Surgical History 2 BACK INJECTIONS 2015 Surgical History LEFT ANKLE 2002 Surgical History CHOLECYSTECTOMY Surgical History nasal surgery Surgical History right Rotator surgery 05-15-22 Hospitalization History SEE ABOVE [employer] Other Hisdhyc general Narrative - Reported* Type Description Date Medical History PTSD Medical History DIVERTICULITOUS Medical History bipolar Medical History ADHD Medical History rotator cuff tear Surgical History 2 BACK INJECTIONS 2014 Surgical History LEFT ANKLE 2002 Surgical History CHOLECYSTECTOMY Surgical History nasal surgery Surgical History right Rotator surgery 05-15-22 Hospitalization History SEE ABOVE [employer] Other Hiszboj general Narrative - Reported* Type Description Date Medical History PTSD Medical History DIVERTICULITOUS Medical History bipolar Medical History ADHD Medical History rotator cuff tear Surgical History 2 BACK INJECTIONS 2014 Surgical History LEFT ANKLE 2002 Surgical History CHOLECYSTECTOMY Surgical History nasal surgery Surgical History right Rotator surgery 05-15-22 Surgical History Neck injections/root burnt 12/31 Hospitalization History SEE ABOVE [employer] Other Hisnzzg general Narrative - Reported* Type Description Date Medical History PTSD Medical History DIVERTICULITOUS Medical History bipolar Medical History ADHD Medical History rotator cuff tear Surgical History 2 BACK INJECTIONS 2014 Surgical History LEFT ANKLE 2002 Surgical History CHOLECYSTECTOMY Surgical History nasal surgery Surgical History right Rotator surgery 05-15-22 Surgical History Neck injections/root burnt 12/31 Hospitalization History SEE ABOVE Hospitalization History [facility]- c onstipation 03-02-2023 [employer] Other Hospital Discharge instructions* Attachments The following attachments cannot be sent through Care Everywhere. * Pilonidal Abscess (Citizen Of [place]) documented in this encounterBON Innovaci [facility] [employer] Work Phone: Hospital Discharge instructions No data available for this section [facility] CenterInstructionsNot on filedocumented in this encounter [facility] System[facility]ructionsNot on filedocumented in this encounter [facility] [employer] SystemInstructionsNot on filedocumented in this encounter [facility] SystemInstructionsNot on filedocumented in this encounter [facility] [employer] SystemInstructionsNot on filedocumented in this encounter [facility] [employer] SystemProgress note No data available for this section [facility] CenterReason for visit Narrative* Consultation (Routine) - Pending Review Specialty Diagnoses / Procedures Referred By Contac t Referred To Contact Breast Surgery Diagnoses Abnormal mammogram Carmen Fisher MD [address] [place] [id number] Ila Trevizo MD [address] [place] [phone] Referral ID Status Reason Start Date Expiration Date V isits Requested Visits Authorized [id number] Pending Review 05/06/2023 05/05/2024 1 1 [facility] [employer] [facility] Summary Purpose Family History No Family History Records Found Relationship Condition Age at Onset Recorded Date/T basia father Diabetes mellitus Unknown Heart disease Unknown Not Specified Diabetes mellitus Unknown Relationship Condition Age at Onset Recorded Date/T basia father Diabetes mellitus Unknown Heart disease Unknown Not Specified Diabetes mellitus Unknown father Malignant neoplasm Unknown Unknown Diabetes mellitus Unknown Not Specified Malignant neoplasm Unknown Advance Directives No Advanced Directives Records [...] Date/ Time Advance Directives No July 18 9:24am Reason for Referral Reason *FU 11/05 Please [...] BLOCK NERVE MEDIAL BRANCH: left [address] Gaurav Sellers, [place] [address] [place] [id number] Referral ID Status Reason Start Date Expiration Date V isits Requested Visits Authorized [id number] Pending Review 04/28/2023 04/27/2024 1 1 Chief Complaint and Reason for Visit Chief Complaint Obesity Abdominal Pain, Rectal Bleeding Chief Complaint WMN f/u 2 month follow up Reason for Visit ADHD BMI 36.0-36.9,adult Constipation Diabetes mellitus with hyperglycemia Fatty liver IBS (irritable bowel syndrome) Obesity Shifting sleep-work schedule, affecting sleep Constipation Elevated liver function tests Fatty liver IBS (irritable bowel syndrome) Additional Source Comments INFORMATION SOURCE (unrecogn ized section and content) DATE CREATED AUTHOR 08/26/2017 [facility] DATE CREATED AUTHOR AUTHOR'S ORGANIZ ATION 05/30/2022 [facility] DATE CREATED AUTHOR AUTHOR'S ORGANIZ ATION 01/18/2023 [facility] DATE CREATED AUTHOR AUTHOR'S ORGANIZ ATION 06/03/2023 [facility] DATE CREATED AUTHOR AUTHOR'S ORGANIZ ATION [facility]/2023 [facility] DATE CREATED AUTHOR AUTHOR'S ORGANIZ ATION 08/03/2023 [facility] DATE CREATED AUTHOR AUTHOR'S ORGANIZ ATION 08/15/2023 [facility] DATE CREATED AUTHOR AUTHOR'S ORGANIZ ATION 10/07/2023 [facility] DATE CREATED AUTHOR AUTHOR'S ORGANIZ ATION 10/07/2023 Annabel grace Reason for Visit (unrecogniz ed section and [...] Dispensed Refills Start Date End Da te fohzatqf-xfanbcidz-hzrhsd ortisone (CORTISPORIN) [id number] 4 drops into the [...] Care Teams (unrecognized sec tion and content) Road Design Draftsperson Relationship Specialty Start Date End Date Shawna Mcfadden DO [address] [place] [address] PCP - General [facility] Medicine 10/12/21 Road Design Draftsperson Relationship Specialty Start Date End Date Shawna Mcfadden DO [address] [place] [address] PCP - General [facility] Medicine 10/12/21 Road Design Draftsperson Relationship Specialty Start Date End Date Shawna Mcfadden DO [address] [place] [address] PCP - General [facility] Medicine 10/12/21 [address] Design Draftsperson Relationship Specialty Start Date End Date Shawna Mcfadden DO [address] [place] [address] PCP - General Family Medicine 05/02/22 Road Design Draftsperson Relationship Specialty Start Date End Date Shawna Mcfadden DO [address] [place] [address] PCP - General Family Medicine 10/12/21 [address] Design Draftsperson Relationship Specialty Start Date End Date Shawna Mcfadden DO [address] [place], [place] [id number] PCP - General Family Medicine 05/02/22 Team [...] Care Provider Active Start: March 18, 2023 [address] Draftsperson Relationship Specialty Start Date End Date Shawna Mcfadden DO [address] [place] [address] PCP - General Family Medicine 05/02/22 [address] Design Draftsperson Relationship Specialty Start Date End Date Vicky McfaddentyDO [address] [place] [address] PCP - General Family Medicine 10/12/21 [address] Design Draftsperson Relationship Specialty Start Date End Date Shawna Mcfadden DO [address] [place] [address] PCP - General Family Medicine 05/02/22 [address] Design Draftsperson Relationship Specialty Start Date End Date Shawna Mcfadden DO [address] [place] [address] PCP - General Family Medicine 10/12/21 [address] Design Draftsperson Relationship Specialty Start Date End Date Shawna Mcfadden DO [address] [place] [address] PCP - [facility] 05/02/22 [address] Design Draftsperson Relationship Specialty Start Date End Date Shawna Mcfadden DO [address] [place] [id number] PCP - [facility] 05/02/22 Team Status: Active Member Role Status Dates Rory Driver , [facility]- Primary Care Provider Active Team Status: Inactive Member Role Status Dates Gayathri Adams APRN Attending Provider Active Start: May 21, 2023 End: May 21, 2023 Roryjosr Driver , [facility] Primary Care Provider Active Start: May 21, 2023 End: May 21, 2023 Team Status: Inactive Member Role Status Dates Jan Garg APRN Attending Provider Active Start: May 21, 2023 End: May 21, 2023 Roryjosr Driver , [facility]- Primary Care Provider Active Start: May 21, 2023 End: May 21, 2023 [address] Design Draftsperson Relationship Specialty Start Date End Date Sahwna Mcfadden DO [address] [place] [id number] PCP - [facility] 10/12/21 Goals (unrecognized section and content) Goals [...] BE BASED ON THE PRIMARY CLINICAL RECORDS. [facility]. provides no warranty or guarantee of the accuracy or completeness of information in this document.
--- NOTE | 2023-10-10 09:05 | ED_ITS ---
HPI - Chest Pain General Chief Complaint: Chest Pain Stated Complaint: chest pain rib pressure Time Seen by Provider: 10/10/23 08:32 Source: patient Mode of arrival: walk-in Limitations: no limitations History of Present Illness HPI narrative: The patient is coming to the ER with right-sided chest wall pain that she mentioned that it started almost a week ago, given evaluated multiple times in [place] ED for this with a negative workup, the patient mentioned that she was doing physical therapy when she apparently carried 30 pounds instead of the usual 10 pounds She mentioned that next day the pain started The pain in the right side of the chest wall at there all the time get worse whenever she take a deep breath and lay on that side She have no cough no fever no other complaints Related Data Previous Rx's ?Medication ?Instructions ?Recorded cyclobenzaprine 10 mg tablet 10 mg PO BID PRN muscle spasm #10 10/10/23 tabs diclofenac sodium 75 mg 75 mg PO BID PRN pain #14 tabs 10/10/23 tablet,delayed release prednisone 50 mg tablet 50 mg PO DAILY 5 days #5 tabs 10/10/23 Allergies Allergy/AdvReac Type Severity Reaction Status Date / Time cephalexin [From Keflex] Allergy Intermediate Rash Verified 10/10/23 08:55 citalopram [From Celexa] Allergy Intermediate Rash Verified 10/10/23 08:55 metformin Allergy Intermediate Nausea Verified 10/10/23 08:55 Review of Systems ROS Status of ROS 10 or more systems reviewed and unremark able except as noted in history and below Exam Narrative Exam Narrative: Nurses notes and vital signs reviewed and patient is not hypoxic. General: Well-appearing and in no apparent distress. Skin: Warm, dry, no pallor noted. No rash. Head: Normocephalic, atraumatic. Neck: Supple, non-tender. Eye: Pupils are equal, round and EOMI. No scleral icterus. Ears, Nose, Mouth, and Throat: TM are clear, no nasal mucosal hypertrophy. Oral mucosa is moist, no posterior oropharynx erythema, uvula is mid-line Cardiovascular: Regular Rate and Rhythm without murmur, gallop or rub. Respiratory: No accessory muscle use or respiratory distress. Lungs are clear to auscultation, no wheezing, rales or rhonchi Chest Wall: Tenderness just below the right breast Back: No midline thoracic or lumbar vertebral tenderness. No CVA tenderness Musculoskeletal: normal ROM, no calf or popliteal tenderness, no lower extremity edema/swelling GI: Abdomen is soft, non-distended. Normal bowel sounds. No masses appreciated. No tenderness to palpation. No rebound, guarding, or rigidity noted. Neurological: A&O x4. No cranial nerve dysfunction observed. No truncal ataxia. Moves all extremities. Sensation intact. Psychiatric: Cooperative and interactive. Normal mood and affect. Constitutional Vital Signs, click to edit/add: Last Vital Signs Temp 97.9 F 10/10/23 08:27 Pulse 91 H 10/10/23 08:27 Resp 18 10/10/23 08:27 BP 134/99 H 10/10/23 08:27 Pulse Ox 100 10/10/23 08:34 O2 Del Method Room Air 10/10/23 08:34 Course Vital Signs Vital signs: Vital Signs Temperature 97.9 F 10/10/23 08:27 Pulse Rate 91 H 10/10/23 08:27 Respiratory Rate 18 10/10/23 08:27 Blood Pressure 134/99 H 10/10/23 08:27 Pulse Oximetry 100 10/10/23 08:27 Oxygen Delivery Method Room Air 10/10/23 08:27 Temperature 97.9 F 10/10/23 08:27 Pulse Rate 91 H 10/10/23 08:27 Respiratory Rate 18 10/10/23 08:27 Blood Pressure 134/99 H 10/10/23 08:27 Pulse Oximetry 100 10/10/23 08:34 Oxygen Delivery Method Room Air 10/10/23 08:34 MDM - Chest Pain MDM Narrative Medical decision making narrative: The patient had a complete workup done in [place] ED that was reviewed after we obtain the workup complete CAT scan of rule out PE as well as EKG troponin and CT abdomen pelvis The patient was discharged with [place] that is not helping she mentioned that she was started yesterday on Medrol Dosepak Right now the patient presented with possible sprain or strain of the muscle of the chest wall I will change her from Medrol to prednisone as well as started her on Flexeril instead of the tizanidine The patient instructed about warm compression and follow-up with her primary care The patient is to follow up with primary care physician in next 2-3 days or to return to the emergency department should any of the signs or symptoms worsen or new symptoms develop. The patient agrees with the following Diagnosis and Treatment plan and the patient will be discharged home. Discharge Plan Discharge Stand Alone Forms: Portal Instructions Chief Complaint: Chest Pain Clinical Impression: Sprain of chest wall Qualifiers: Encounter type: initial encounter Qualified Code(s): S23.8XXA - Sprain of other specified parts of thorax, initial encounter Patient Disposition: Home, Self-Care Time of Disposition Decision: 09:00 Prescriptions / Home Meds: New cyclobenzaprine 10 mg tablet 10 mg PO BID PRN (Reason: muscle spasm) Qty: 10 0RF diclofenac sodium 75 mg tablet,delayed release (DR/EC) 75 mg PO BID PRN (Reason: pain) Qty: 14 0RF prednisone 50 mg tablet 50 mg PO DAILY 5 Days Qty: 5 0RF Print Language: Nauruan Instructions: Chest Wall Pain (ED) Additional Instructions: Take medication with food Stop taking tizanidine and start taking Flexeril for the next 5 days Also stop taking Medrol Dosepak and take prednisone Referrals: [facility] Andrea REHABILITATION PROGRAM COORDINATOR [Primary Care Provider] - 1 week
[2023-10-10 09:07] VITALS: BP 132/86; PULSE 82; O2SAT 98
== END 2023-10-10 09:10 | disposition home or self-care (01) ==
PROVIDERS: Emergency Provider Emergency Medicine; PCP Nurse Practitioner
DX: S23.8XXA Sprain of other specified parts of thorax, initial encounter (principal); X50.9XXA Other and unspecified overexertion or strenuous movements or postures, initial encounter
CPT/HCPCS: 96372; 99284; J1885

== ENCOUNTER 2023-10-18 17:44 | Emergency (ER) | payer OTHER, SELFPAY ==
[2023-10-18 17:49] VITALS: BP 117/70; PULSE 91; TEMP 36.7; O2SAT 97; BMI 36.0
--- OUTSIDE RECORDS SUMMARY | 2023-10-18 17:55 | XMS_ITS | CCD ---
Author Organization [facility] ion [facility] Care Team Providers Care Legal Clerk Name Role Phone Juan Ramon Jean Unavailable Unavailable Juan Ramon Jean Unavailable Unavailable DOMENICA OLIVA Unavailable Unavailable Shawna [...] Garg Unavailable DOMENICA OLIVA Primary Care Physician [phone] HILARY GRANADO Referring Unavailable HILARY GRANADO Attending Unavailable Shawna Mcfadden DO Primary Care Provider Shawna Mcfadden DO Primary Care Provider MD Yo Blank Attending Provider DO Shawna Mcfadden Primary Care Provider SHAWNA MCFADDEN Referring Unavailable SHAWNA MCFADDEN Primary Care Unavailable RUMSCHLAG, SHAWNA K Referring Unavailable RUMSCHLAG, SHAWNA K Primary Care Unavailable NON STAFF Primary Care Unavailable Yo Blank Attending Unavailable Yo Blank Admitting Unavailable Rumschlag, Shawna Primary Care Unavailable Yo Blank Attending Unavailable Yo Blank Admitting Unavailable Eryn, Myrtle Admitting Unavailable Shammo, Rory T Primary Care Unavailable Ean Cernaanda Attending Unavailable LULY ENGLISH Attending Unavailable GABY JUNE Attending Unavailable ALICIA PRESTON Attending Unavailable LAILA LIEBERMAN Attending Unavailable [facility] Primary Care Unava ilable SHAMMO, RORY Referring [...] Care Unavailable RUMSCHLAG, SHAWNA Referring Unavailable RUMSCHLAG, SHAWAN Primary Care Unavailable RUMSCHLAG, SHAWNA Referring Unavailable RUMSCHLAG, SHAWNA Primary Care Unavailable RUMSCHLAG, SHAWNA Referring Unavailable NAVEEN SANCHEZ Attending Unavailable RUMSCHLAG, SHAWNA Primary Care Unavailable [...] Primary Care Unavailable RUMSCHLAG, SHAWNA Referring Unavailable DEEPIKA ROBLEDO Attending Unavailable JORGE, CARMEN Referring Unavailable RUMSCHLAG, SHAWNA K Primary Care Unavailable DWAYNE KHOURY Attending Unavail able RUMSCHLAG, SHAWNA K Referring Unavailable [facility] Primary Care Unava ilable Allergies Allergy Classification Reported Allergen(s) Allergy Type Date of Onset Reaction(s) Facility Cephalosporins (antibiotic) (2 sources) Cephalexin Drug Allergy 7 [facility] Serotonin Reuptake Inhibitors (SSRIs) (2 sources) Citalopram Drug Allergy 7 [facility] (20 sources) cephalexin; Translations: [Keflex] Drug Allergy 3 [facility] Repository (4 sources) citalopram; Translations: [CeleXA] Drug Allergy 3 AOF, heart palpitation [facility] Repository (20 sources) Cephalexin; Translations: [CEPHALEXIN] Drug Allergy 7 Hives [employer] Work Phone: (20 sources) Citalopram; Translations: [CITALOPRAM] Drug Allergy 7 Hives, anaphylaxis [employer] (5 sources) metFORMIN Drug Allergy Unknown el? Other (20 sources) metFORMIN; Translations: [METFORMIN] Drug Allergy 3 Unknown, Unknown Reaction [employer] (10 sources) POISON DEVORAH EXTRACT; Translations: [POISON DEVORAH EXTRACT] Drug Allergy 3 [employer] (7 sources) Metformin And Related Propensity to adverse reactions to drug 4 Other (See Comments) [employer] (1 source) Cephalexin Drug Allergy 4 [facility] Repository (1 source) Citalopram Drug Allergy 4 [facility] Repository (1 source) metFORMIN Drug Allergy 4 [facility] Repository Medications Current Medications Medication Drug Class(es) Dates Sig (Normalized) Sig (Original) [id number] 200 actuat albuterol 0.09 mg/actuat metered dose [...] 4 mg oral capsule (13 sources) Start: 11-08-20 23 take 1 capsule by mouth once daily Bifidobacterium Infantis (Align) 4 mg capsule Active 4 MG PO Daily April 29, 2023 1:00am blood-glucose meter (TRUE METRIX GLUCOSE METER) misc (7 sources) Start: 06-18-19 19 blood-glucose meter (TRUE METRIX GLUCOSE METER) [facility] use to test BLOOD SUGAR TWICE DAILY 1 each 0 06/17/2018 Active cetirizine hydrochloride 10 mg oral tablet (16 sources) Histamine-1 Receptor Antagonist Start: 02-06-20 20 take 1 tablet by mouth once daily cetirizine (ZyrTEC) 10 mg tablet TAKE 1 TABLET BY MOUTH DAILY 30 tablet 5 02/06/2020 Active cholecalciferol 0.05 mg oral capsule (16 sources) Vitamin D Start: 05-21-19 24 take 2000 [IU] by mouth once daily Cholecalciferol (Vitamin D3) Active 2000 UNIT PO Daily May 21, 2023 12:00am Start: 04-09-2021 take 1 capsule by mo ut in the morning cholecalciferol, vitamin D3, 2,000 [...] Orally Once a day for 30 days 08 Nov, 2023 Active trulicity 3 mg/0.5ml solution pen-injector (8 [...] / neomycin 3.5 mg/ml / polymyxin b 63014 unt/ml otic solution (1 source) Aminoglycoside Antibacterial, Polymyxin-class Antibacterial, Corticosteroid Start: 10-22-2021 End: 10-29-2021 zbdfrbva-woayosjit-xxvwxrosg isone (CORTISPORIN) 3.5-32037-[address] 4 drops into the [...] MOUTH NIGHTLY 30 tablet 0 07/16/2020 Active rqempeyf-edii-LR-ca lcium &mins (THERAGRAN-M) 9 mg iron-400 mcg tablet (7 sources) uuekccec-vtta-OH -c alcium &mins (THERAGRAN-M) 9 mg iron-400 [...] 30 days Jan, Active polyethylene glycol 3350 889190 mg / potassium chloride 2970 mg / sodium bicarbonate 6740 mg / sodium chloride 5860 mg / sodium sulfate 79370 mg powder for oral solution (2 sources) [...] Nausea, # 20 tab(s), Refills(s) 0, Pharmacy: [id number], 157, cm, 03/10/19 12:21:00 EST, Height/Length [...] capsule (20 sources) HMG-CoA Reductase Inhibitor Start: 05-20-2023 take 10 mg by mouth once daily [...] May 21, 2023 11:36am polyethylene glycol 3350 39033 mg powder for oral solution (7 sources) [...] and vomiting (1 source) Nausea 11-26-2018 Episodic Nonspecific chest pain (4 sources) Chest [...] Translations: [Other chronic nonalcoholic liver disease] Onset: 10-29-2021 Resolved: 08-30-2022 Chronic Other nervous system disorders (20 sources) [...] and rectum] Onset: 03-18-2023 Unclassified (1 source) New Patient Onset: 10-08-2023 Past or Other Problems Problem Classification Problem [...] (7 sources) Mood disorders Onset: 05-02-2020 05-02-2020 Nonmalignant breast conditions (20 sources) Large breast; Translations: [Hypertrophy of breast] Onset: 06-02-2023 06-02-2023 Episodic Other connective tissue disease (1 source) Pain [...] significant stool or gas noted. Evidence of xfiz-vx-xcaueiss diverticulosis of proximal sigmoid colon and descending [...] Zoë Nicole MD 10/07/23 Final result Normal [facility] Comp Metabolic Profon 2023 Albumin [Mass/Vol] 4.1 g/dL Normal 3.5-5.2 [facility] Comment on above: Performed By: #### C DP, TROPI, CP, LIP #### [facility] [address] [place], [place] [id number] [employer]ens Grinder: Domenica Velázquez MD Albumin/Glob Ratio 1.4 Normal 1.0-2.5 [facility] Comment on above: Performed By: #### C DP, TROPI, CP, LIP #### [address] [place], [place] [id number] [employer] Grinder: Domenica Velázquez MD Alkaline Phos 85 U/L Normal 35-104 [facility] Comment on above: Performed By: #### C DP, TROPI, CP, LIP #### [address] [place] [address] [employer] Grinder: Domenica Velázquez MD ALT [Catalytic activity/Vol] 12 U/L Normal 5-33 [facility] Comment on above: Performed By: #### C DP, TROPI, CP, LIP #### [address] [place] [address] [employer] Grinder: Domenica Velázquez MD Anion gap [Moles/Vol] 11 mmol/L Normal 9-17 [facility] Comment on above: Performed By: #### C DP, TROPI, CP, LIP #### [address] [place], [place] [id number] [employer] Grinder: Domenica Velázquez MD AST [Catalytic activity/Vol] 14 U/L Normal <32 [facility] Comment on above: Performed By: #### C DP, TROPI, CP, LIP #### [facility] [address] [place], [place] [phone] [employer] Grinder: Domenica Velázquez MD Bilirubin [Mass/Vol] 0.2 mg/dL Low 0.3-1.2 [facility] Comment on above: Performed By: #### C DP, TROPI, CP, LIP #### [facility] [address] [place], [facility] [employer] Grinder: Domenica Velázquez MD BUN/CRE Ratio 30 High 9-20 [facility] Comment on above: Performed By: #### C DP, TROPI, CP, LIP #### [facility] [address] [place], [place] [phone] [employer] Grinder: Domenica Velázquez MD Calcium [Mass/Vol] 8.8 mg/dL Normal 8.6-10.4 [facility] Comment on above: Performed By: #### C DP, TROPI, CP, LIP #### [facility] [address] [place] [address] Dr[address] [place], [place] [id number] [employer] Grinder: Domenica Velázquez MD Chloride [Moles/Vol] 103 mmol/L Normal 98-107 [facility] Comment on above: Performed By: #### C DP, TROPI, CP, LIP #### [facility] [address] [place] [address] Dr[place], [facility] [employer] Grinder: Domenica Velázquez MD CO2 [Moles/Vol] 25 mmol/L Normal 20-31 [facility] Comment on above: Performed By: #### C DP, TROPI, CP, LIP #### [facility] [address] [place], [place] [phone] [employer] Grinder: Domenica Velázquez MD Creatinine [Mass/Vol] 0.6 mg/dL Normal 0.5-0.9 [facility] Comment on above: Performed By: #### C DP, TROPI, CP, LIP #### [facility] [address] [place] [address] [employer] Grinder: Domenica Velázquez MD GFR/1.73 sq M.predicted among non-blacks MDRD (S/P/Bld) [Vol rate/Area] mL/min/{1.73_m2} Normal >60 [facility] Comment on above: Result Comment: These results [...] #### C DP, TROPI, CP, LIP #### [address] [place] [address] [employer] Grinder: Domenica Velázquez MD Glucose [Mass/Vol] 92 mg/dL Normal 70-99 [facility] Comment on above: Performed By: #### C DP, TROPI, CP, LIP #### [address] [place] [address] [employer] Grinder: Domenica Velázquez MD Potassium [Moles/Vol] 3.6 mmol/L Low 3.7-5.3 [facility] Comment on above: Performed By: #### C DP, TROPI, CP, LIP #### [address] [place] [address] [employer] Grinder: Domenica Velázquez MD Protein [Mass/Vol] 7.0 g/dL Normal 6.4-8.3 [facility] Comment on above: Performed By: #### C DP, TROPI, CP, LIP #### [address] [place] [address] [employer] Grinder: Domenica Velázquez MD Sodium [Moles/Vol] 139 mmol/L Normal 135-144 [facility] Comment on above: Performed By: #### C DP, TROPI, CP, LIP #### [facility] [address] [place], [place] [phone] [employer] Grinder: Domenica Velázquez MD Urea nitrogen [Mass/Vol] 18 mg/dL Normal 6-20 [facility] Comment on above: Performed By: #### C DP, TROPI, CP, LIP #### [facility] [address] [place], [place] [phone] [employer] Grinder: Domenica Velázquez MD Lipaseon 10-07-2023 Lipase [Catalytic activity/Vol] 28 U/L Normal 13-60 [facility] Comment on above: Performed By: #### C DP, TROPI, CP, LIP ####[facility] [place] [address] Lab Director: Domenica Velázquez MD Troponinon 10-07-2023 Troponin, High Sens <6 Normal 0-14 [facility] Comment on above: Result Comment: High Sensitivity Troponin values cannot be compared with other Troponin methodologies. Performed By: #### C DP, TROPI, CP, LIP ####[facility] , [place] [id number] Lab Director: Domenica Velázquez MD CBC with Diffon 10-06-2023 Abs. Basophil 0.03 k/uL Normal 0.00-0.20 [facility] Comment on above: Performed By: #### C DP, TROPI, CP, LIP #### [facility] [address] [place] [address] [employer] Grinder: Domenica Velázquez MD Abs.Imm.Granulocyte 0.03 k/uL Normal 0.00-0.30 [facility] Comment on above: Performed By: #### C DP, TROPI, CP, LIP #### [facility] [address] [place], [place] [phone] [employer] Grinder: Domenica Velázquez MD Abs.Neutrophil (Seg) 6.50 k/uL Normal 1.50-8.10 [facility] Comment on above: Performed By: #### C DP, TROPI, CP, LIP #### [address] [place] [address] [employer] Grinder: Domenica Velázquez MD Basophils/100 WBC (Bld) 0 % Normal 0-2 [facility] Comment on above: Performed By: #### C DP, TROPI, CP, LIP #### [address] [place] [id number] [employer] Grinder: Domenica Velázquez MD Eosinophils (Bld) [#/Vol] 0.08 10*3/uL Normal 0.00-0.44 [facility] Comment on above: Performed By: #### C DP, TROPI, CP, LIP #### [address] [place], [place] [address] [employer] Grinder: Domenica Velázquez MD Eosinophils/100 WBC (Bld) 1 % Normal 1-4 [facility] Comment on above: Performed By: #### C DP, TROPI, CP, LIP #### [address] [place] [id number] [employer] Grinder: Domenica Velázquez MD Erythrocyte distribution width (RBC) [Ratio] 13.5 % Normal 11.8-14.4 [facility] Comment on above: Performed By: #### C DP, TROPI, CP, LIP #### [address] [place] [id number] [employer] Grinder: Domenica Velázquez MD Hematocrit (Bld) [Volume fraction] 40.1 % Normal 36.3-47.1 [facility] Comment on above: Performed By: #### C DP, TROPI, CP, LIP #### [address] [place], [place] [phone] [employer] Grinder: Domenica Velázquez MD Hemoglobin (Bld) [Mass/Vol] 13.4 g/dL Normal 11.9-15.1 [facility] Comment on above: Performed By: #### C DP, TROPI, CP, LIP #### [facility] [address] [place], [place] [phone] [employer] Grinder: Domenica Velázquez MD Immature granulocytes/100 WBC (Bld) 0 % Normal 0 [facility] Comment on above: Performed By: #### C DP, TROPI, CP, LIP #### [facility] [address] [place] [address] [employer] Grinder: Domenica Velázquez MD Lymphocytes (Bld) [#/Vol] 2.41 10*3/uL Normal 1.10-3.70 [facility] Comment on above: Performed By: #### C DP, TROPI, CP, LIP #### [address] [place] [address] [employer] Grinder: Domenica Velázquez MD Lymphocytes/100 WBC (Bld) 25 % Normal 24-43 [facility] Comment on above: Performed By: #### C DP, TROPI, CP, LIP #### [address] [place], [place] [phone] [employer] Grinder: Domenica Velázquez MD MCH (RBC) [Entitic mass] 28.6 pg Normal 25.2-33.5 [facility] Comment on above: Performed By: #### C DP, TROPI, CP, LIP #### [address] [place] [address] [employer] Grinder: Domenica Velázquez MD MCHC (RBC) [Mass/Vol] 33.4 g/dL Normal 28.4-34.8 [facility] Comment on above: Performed By: #### C DP, TROPI, CP, LIP #### [address] [place], [place] [phone] [employer] Grinder: Domenica Velázquez MD MCV (RBC) [Entitic vol] 85.7 fL Normal 82.6-102.9 [facility] Comment on above: Performed By: #### C DP, TROPI, CP, LIP #### [address] [place] [address] [employer] Grinder: Domenica Velázquez MD Monocytes (Bld) [#/Vol] 0.69 10*3/uL Normal 0.10-1.20 [facility] Comment on above: Performed By: #### C DP, TROPI, CP, LIP #### [address] [place], [place] [address] [employer] Grinder: Domenica Velázquez MD Monocytes/100 WBC (Bld) 7 % Normal 3-12 [facility] Comment on above: Performed By: #### C DP, TROPI, CP, LIP #### [address] [place], [place] [address] [employer] Grinder: Domenica Velázquez MD Neutrophil (Seg) 67 % High 36-65 [facility] Comment on above: Performed By: #### C DP, TROPI, CP, LIP #### [address] [place], [facility] [employer] Grinder: Domenica Velázquez MD NRBC Automated 0.0 per 100 WBC Normal 0.0 [facility] Comment on above: Performed By: #### C DP, TROPI, CP, LIP #### [address] [place] [address] [employer]inder: Domenica Velázquez MD Platelet mean volume (Bld) [Entitic vol] 10.5 fL Normal 8.1-13.5 [facility] Comment on above: Performed By: #### C DP, TROPI, CP, LIP #### [address] [place] [address] [employer] Grinder: Domenica Velázquez MD Platelets (Bld) [#/Vol] 292 10*3/uL Normal 138-453 [facility] Comment on above: Performed By: #### C DP, TROPI, CP, LIP #### [facility] [address] [place], [place] [phone] [employer] Grinder: Domenica Velázquez MD RBC (Bld) [#/Vol] 4.68 10*6/uL Normal 3.95-5.11 [facility] Comment on above: Performed By: #### C DP, TROPI, CP, LIP #### [facility] [address] [place], [place] [phone] [employer]inder: Domenica Velázquez MD WBC (Bld) [#/Vol] 9.7 10*3/uL Normal 3.5-11.3 [facility] Comment on above: Performed By: #### C DP, TROPI, CP, LIP #### [facility] [address] [place] [address] [place] [address] [employer] Grinder: Domenica Velázquez MD Basic Metabolic Profon 10-04 Anion gap [Moles/Vol] 10 mmol/L Normal 9-17 [facility] Comment on above: Performed By: #### D BASIA, BMP, CDP, TROPI #### [address] [place] [address] [employer] Grinder: Domenica Velázquez MD BUN/CRE Ratio 23 High 9-20 [facility] Comment on above: Performed By: #### D BASIA, BMP, CDP, TROPI #### [facility] [address] [place], [place] [phone] [employer] Grinder: Domenica Velázquez MD Calcium [Mass/Vol] 8.9 mg/dL Normal 8.6-10.4 [facility] Comment on above: Performed By: #### D BASIA, BMP, CDP, TROPI #### [facility] [address] [place] [address] [place] [address] [employer] Grinder: Domenica Velázquez MD Chloride [Moles/Vol] 105 mmol/L Normal 98-107 [facility] Comment on above: Performed By: #### D BASIA, BMP, CDP, TROPI #### [facility] [address] [place] [address] [employer] Grinder: Domenica Velázquez MD CO2 [Moles/Vol] 26 mmol/L Normal 20-31 [facility] Comment on above: Performed By: #### D BASIA, BMP, CDP, TROPI #### [facility] [address] [place] [address] [employer] Grinder: Domenica Velázquez MD Creatinine [Mass/Vol] 0.6 mg/dL Normal 0.5-0.9 [facility] Comment on above: Performed By: #### D BSAIA, BMP, CDP, TROPI #### [facility] [address] [place] [address] [employer] Grinder: Domenica Velázquez MD GFR/1.73 sq M.predicted among non-blacks MDRD (S/P/Bld) [Vol rate/Area] mL/min/{1.73_m2} Normal >60 [facility] Comment on above: Result Comment: These results [...] #### D BASIA, BMP, CDP, TROPI #### [facility] [address] [place] [address] [employer] Grinder: Domenica Velázquez MD Glucose [Mass/Vol] 96 mg/dL Normal 70-99 [facility] Comment on above: Performed By: #### D BASIA, BMP, CDP, TROPI #### [facility] [address] [place] [address] [employer] Grinder: Domenica Velázquez MD Potassium [Moles/Vol] 3.8 mmol/L Normal 3.7-5.3 [facility] Comment on above: Performed By: #### D BASIA, BMP, CDP, TROPI #### [facility] [address] [place], [facility] [employer] Grinder: Domenica Velázquez MD Sodium [Moles/Vol] 141 mmol/L Normal 135-144 [facility] Comment on above: Performed By: #### D BASIA, BMP, CDP, TROPI #### [address] [place], [facility] [employer] Grinder: Domenica Velázquez MD Urea nitrogen [Mass/Vol] 14 mg/dL Normal 6-20 [facility] Comment on above: Performed By: #### D BASIA, BMP, CDP, TROPI #### [address] [place], [facility] Prec[employer] Grinder: Domenica Velázquez MD CBC with Diffon 10-05-2023 Abs. Basophil <0.03 Normal 0.00-0.20 [facility] Comment on above: Performed By: #### D BASIA, BMP, CDP, TROPI #### [address] [place], [facility] [employer] Grinder: Domenica Velázquez MD Abs.Imm.Granulocyte 0.03 k/uL Normal 0.00-0.30 [facility] Comment on above: Performed By: #### D BASIA, BMP, CDP, TROPI #### [address] [place] [address] [employer] Grinder: Domenica Velázquez MD Abs.Neutrophil (Seg) 5.10 k/uL Normal 1.50-8.10 [facility] Comment on above: Performed By: #### D BASIA, BMP, CDP, TROPI #### [facility] [address] [place] [address] [place] [id number] [employer] Grinder: Domenica Velázquez MD Basophils/100 WBC (Bld) 0 % Normal 0-2 [facility] Comment on above: Performed By: #### D BASIA, BMP, CDP, TROPI #### [address] [place], [facility] [employer] Grinder: Domenica Velázquez MD Eosinophils (Bld) [#/Vol] 0.11 10*3/uL Normal 0.00-0.44 [facility] Comment on above: Performed By: #### D BASIA, BMP, CDP, TROPI #### [address] [place] [address] [employer] Grinder: Domenica Velázquez MD Eosinophils/100 WBC (Bld) 1 % Normal 1-4 [facility] Comment on above: Performed By: #### D BASIA, BMP, CDP, TROPI #### [address] [place], [facility] [employer] Grinder: Domenica Velázquez MD Erythrocyte distribution width (RBC) [Ratio] 13.5 % Normal 11.8-14.4 [facility] Comment on above: Performed By: #### Smiley BASIA, BMP, CDP, TROPI #### [address] [place], [place] [address] [employer] Grinder: Domenica Velázquez MD Hematocrit (Bld) [Volume fraction] 42.6 % Normal 36.3-47.1 [facility] Comment on above: Performed By: #### D BASIA, BMP, CDP, TROPI #### [address] [place] [id number] [employer] Grinder: Domenica Velázquez MD Hemoglobin (Bld) [Mass/Vol] 14.1 g/dL Normal 11.9-15.1 [facility] Comment on above: Performed By: #### D BASIA, BMP, CDP, TROPI #### [facility] [address] [place], [place] [phone] [employer] Grinder: Domenica Velázquez MD Immature granulocytes/100 WBC (Bld) 0 % Normal 0 [facility] Comment on above: Performed By: #### D BASIA, BMP, CDP, TROPI #### [facility] [address] [place], [facility] [employer] Grinder: Domenica Velázquez MD Lymphocytes (Bld) [#/Vol] 2.42 10*3/uL Normal 1.10-3.70 [facility] Comment on above: Performed By: #### D BASIA, BMP, CDP, TROPI #### [facility] [address] [place], [facility]83 Prec[employer] Grinder: Domenica Velázquez MD Lymphocytes/100 WBC (Bld) 30 % Normal 24-43 [facility] Comment on above: Performed By: #### D BASIA, BMP, CDP, TROPI #### [address] [place], [facility] [employer] Grinder: Domenica Velázquez MD MCH (RBC) [Entitic mass] 28.8 pg Normal 25.2-33.5 [facility] Comment on above: Performed By: #### D BASIA, BMP, CDP, TROPI #### [address] [place], [facility] [employer] Grinder: Domenica Velázquez MD MCHC (RBC) [Mass/Vol] 33.1 g/dL Normal 28.4-34.8 [facility] Comment on above: Performed By: #### D BASIA, BMP, CDP, TROPI #### [facility] [address] [place] [address] [employer] Grinder: Domenica Velázquez MD MCV (RBC) [Entitic vol] 87.1 fL Normal 82.6-102.9 [facility] Comment on above: Performed By: #### D BASIA, BMP, CDP, TROPI #### [facility] [address] [place], [place] [phone] [employer] Grinder: Domenica Velázquez MD Monocytes (Bld) [#/Vol] 0.53 10*3/uL Normal 0.10-1.20 [facility] Comment on above: Performed By: #### D BASIA, BMP, CDP, TROPI #### [facility] [address] [place], [facility] [employer] Grinder: Domenica Velázquez MD Monocytes/100 WBC (Bld) 7 % Normal 3-12 [facility] Comment on above: Performed By: #### D BASIA, BMP, CDP, TROPI #### [facility] [address] Dr. [place], [facility] Precision Lens Grinder: Domenica Velázquez MD Neutrophil (Seg) 62 % Normal 36-65 [facility] Comment on above: Performed By: #### D BASIA, BMP, CDP, TROPI #### [facility] [address] [place], [place] [id number] Precision Lens Grinder: Domenica Velázquez MD NRBC Automated 0.0 per 100 WBC Normal 0.0 [facility] Comment on above: Performed By: #### D BASIA, BMP, CDP, TROPI #### [facility] [address] [place], [facility] Precision Lens Grinder: Domenica Velázquez MD Platelet mean volume (Bld) [Entitic vol] 10.9 fL Normal 8.1-13.5 [facility] Comment on above: Performed By: #### D BASIA, BMP, CDP, TROPI #### [facility] [address] [place] [address] Precision Lens Grinder: Domenica Velázquez MD Platelets (Bld) [#/Vol] 296 10*3/uL Normal 138-453 [facility] Comment on above: Performed By: #### D BASIA, BMP, CDP, TROPI #### [facility] [address] [place], [place] [address] Precision Lens Grinder: Domenica Velázquez MD RBC (Bld) [#/Vol] 4.89 10*6/uL Normal 3.95-5.11 [facility] Comment on above: Performed By: #### D BASIA, BMP, CDP, TROPI #### [facility] [address] [place], [place] [address]83 Precision Lens Grinder: Domenica Velázquez MD WBC (Bld) [#/Vol] 8.2 10*3/uL Normal 3.5-11.3 [facility] Comment on above: Performed By: #### D BASIA, BMP, CDP, TROPI #### [facility] [address] [place] [id number] Precision Lens Grinder: Domenica Velázquez MD CT CHEST PULMONARY EMBOLISM [...] Fernando Marcelino MD 10/05/23 Final result Normal [facility] D-Dimer Teston 10-05-2023 D-Dimer Test 0.30 ug/mL FEU Normal 0.00-0.59 [facility] Comment on above: Result Comment: When combined [...] #### D BASIA, BMP, CDP, TROPI #### [facility] [address] [place] [address] Precision Lens Grinder: Domenica Velázquez MD Liver Profileon 10-05-2023 Albumin [Mass/Vol] 4.4 g/dL Normal 3.5-5.2 [facility] Comment on above: Performed By: #### L IVP ####[facility] [place] [address] Lab Director: Domenica Velázquez MD Albumin/Glob Ratio 1.4 Normal 1.0-2.5 [facility] Comment on above: Performed By: #### L IVP ####[address] , [place] [address] Lab Director: Domenica Velázquez MD Alkaline Phos 99 U/L Normal 35-104 [facility] Comment on above: Performed By: #### L IVP ####[address] [place] [address] Lab Director: Domenica Velázquez MD ALT [Catalytic activity/Vol] 13 U/L Normal 5-33 [facility] Comment on above: Performed By: #### L IVP ####[address] [place] [address] Lab Director: Domenica Velázquez MD AST [Catalytic activity/Vol] 16 U/L Normal <32 [facility] Comment on above: Performed By: #### L IVP ####[address] , [place] [address] Lab Director: Domenica Velázquez MD Bilirubin [Mass/Vol] 0.2 mg/dL Low 0.3-1.2 [facility] Comment on above: Performed By: #### L IVP ####[address] [place] [address] Lab Director: Domenica Velázquez MD Bilirubin, Indirect Can not be calculated Normal 0.0-1 .0 [facility] Comment on above: Performed By: #### L IVP ####[address] , [place] [address]83 Lab Director: Domenica Velázquez MD Bilirubin.indirect [Mass/Vol] mg/dL Normal <0.3 [facility] Comment on above: Performed By: #### L IVP ####[address] [place] [address] [facility] Director: Domenica Velázquez MD Protein [Mass/Vol] 7.5 g/dL Normal 6.4-8.3 [facility] Comment on above: Performed By: #### L IVP ####[facility] [place] [address] Lab Director: Domencia Velázquez MD Troponinon 10-05-2023 Troponin, High Sens <6 Normal 0-14 [facility] Comment on above: Result Comment: High Sensitivity Troponin values cannot be compared with other Troponin methodologies. Performed By: #### T ROPI ####[facility] [place] [address] [facility] Director: Domenica Velázquez MD Troponin, High Sens <6 Normal 0-14 [facility] Comment on above: Result Comment: High Sensitivity Troponin values cannot be compared with other Troponin methodologies. Performed By: #### D BASIA, BMP, CDP, TROPI #### [facility] [address] [place], [place] [address] Precision Lens Grinder: Domenica Velázquez MD XR CHEST PORTABLEon 10-05-19 [...] Deyanira Lock MD 10/05/23 Final result Normal [facility] CT CERVICAL SPINE WO CONTRAS Ton 04-20-2023 [...] Andi Montoya MD 04/20/23 Final result Normal [facility] CT Cervical spine WO contras ton 04-20-2023 Radiology Study observation (narrative) [facility] CT HEAD WO CONTRASTon 2023 CT [...] Andi Montoya MD 04/20/23 Final result Normal [facility] CT Head WO contraston 2023 Radiology Study observation (narrative) [facility] No Panel Informationon 04-[address] abnormal ity identified in the brain. No acute osseous abnormality identified in the cervical spine. [facility] EXAMINATION: CT OF THE [...] There is no prevertebral soft tissue swelling. [facility] Andi Montoya MD - [...] osseous abnormality identified in the cervical spine. [facility] No Panel InformationOrdered By: Andi Montoya on 04-20-[address] [facility] Work Phone: Glucose Glucometer (BldC) [M ass/Vol]on 03-27-2023 Glucose [Mass/Vol] 151 mg/dL High 65-99 [facility] Glucose Poct Glucometerson 0 03-18-2023 Commemt1 Glu2: Cleaned Meter Normal [facility] Comment on above: Result Comment: PERF ORMED BY: [facility] [address] [address] PATHOLOGIST COMMUNICATION EQUIPMENT MECHANIC SHA VALERA M.D. Performed By: #### G LULS #### Point of Care testing , Glucose [Mass/Vol] 87 mg/dL Normal [facility] Comment on above: Result Comment: [facility] Glucose Reference Range is dependent on time and content of last meal. Glucose of more than 200 mg/dL in a nonstressed, ambulatory subject supports the diagnosis of Diabetes Mellitus. Performed By: #### G LULS #### Point of Care testing , HCG,Urineon 03-18-2023 Beta HCG ( test) Ql (U) Negative Normal [facility] Comment on above: Result Comment: PERF ORMED BY: [place] [address] PATHOLOGIST COMMUNICATION EQUIPMENT MECHANIC SHA VALERA M.D. Performed By: #### U HCG #### [address] CBC AND AUTO DIFFon 03-16-19 ABSOLUTE BASOPHIL 0.0 X10E9/L Normal 0.0-0.2 [facility] Comment on above: Performed By: #### 2 4331-1, CBCA, CMP, TSHR #### [facility] ([id number]) [address], [address] [place] [address] ABSOLUTE NEUTROPHIL 7.7 X10E9/L High 1.5-6.6 [facility] Comment on above: Performed By: #### 2 4331-1, CBCA, CMP, TSHR #### [facility] ([id number]) [address], [address] [place] [address] Basophils/100 WBC (Bld) 0.3 % Normal [facility] Comment on above: Performed By: #### 2 4331-1, CBCA, CMP, TSHR #### [facility] ([id number]) [address], [address] [place] [address] Eosinophils (Bld) [#/Vol] 0.1 10*3/uL Normal 0.0-0.4 [facility] Comment on above: Performed By: #### 2 4331-1, CBCA, CMP, TSHR #### [facility] ([id number]) [address] [address] [place] [address] Eosinophils/100 WBC (Bld) 1.1 % Normal [facility] Comment on above: Performed By: #### 2 4331-1, CBCA, CMP, TSHR #### [facility] ([id number]) [address] [address] [place] [address] Erythrocyte distribution width (RBC) [Ratio] 14.6 % Normal 11.5-15.0 [facility] Comment on above: Performed By: #### 2 4331-1, CBCA, CMP, TSHR #### [facility] ([id number]) [address] [address] [place] [address] Hematocrit (Bld) [Volume fraction] 45.7 % Normal 35-47 [facility] Comment on above: Performed By: #### 2 4331-1, CBCA, CMP, TSHR #### [facility] ([id number]) [address] [address] [place] [address] Hemoglobin (Bld) [Mass/Vol] 15.0 g/dL Normal 11.7-15.5 [facility] Comment on above: Performed By: #### 2 4331-1, CBCA, CMP, TSHR #### [facility] ([id number]) [address] [address] [place] [address] Lymphocytes (Bld) [#/Vol] 2.4 10*3/uL Normal 1.0-3.5 [facility] Comment on above: Performed By: #### 2 4331-1, CBCA, CMP, TSHR #### [facility] ([id number]) [address] [address] [place] [address] Lymphocytes/100 WBC (Bld) 22.1 % Normal [facility] Comment on above: Performed By: #### 2 4331-1, CBCA, CMP, TSHR #### [facility] ([id number]) [address], [address] [place] [address] MCH (RBC) [Entitic mass] 29.0 pg Normal 27-34 [facility] Comment on above: Performed By: #### 2 4331-1, CBCA, CMP, TSHR #### [facility] ([id number]) [address], [address] [place] [address] MCHC (RBC) [Mass/Vol] 32.8 g/dL Normal 32-36 [facility] Comment on above: Performed By: #### 2 4331-1, CBCA, CMP, TSHR #### [facility] ([id number]) [address], [address] [place] [address] MCV (RBC) [Entitic vol] 88 fL Normal 80-100 [facility] Comment on above: Performed By: #### 2 4331-1, CBCA, CMP, TSHR #### [facility] ([id number]) [address], [address] [place] [address] Monocytes (Bld) [#/Vol] 0.6 10*3/uL Normal 0-0.9 [facility] Comment on above: Performed By: #### 2 4331-1, CBCA, CMP, TSHR #### [facility] ([id number]) [address], [address] [place] [address] Monocytes/100 WBC (Bld) 5.7 % Normal [facility] Comment on above: Performed By: #### 2 4331-1, CBCA, CMP, TSHR #### [facility] ([id number]) [address], [address] [place] [address] Neutrophils/100 WBC (Bld) 70.8 % Normal [facility] Comment on above: Performed By: #### 2 4331-1, CBCA, CMP, TSHR #### [facility] ([id number]) [address] [address] [place] [address] Platelet mean volume (Bld) [Entitic vol] 9.7 fL Normal 7-12 [facility] Comment on above: Performed By: #### 2 4331-1, CBCA, CMP, TSHR #### [facility] ([id number]) [address], [facility] [address] [place] [address] Platelets (Bld) [#/Vol] 303 10*3/uL Normal 150-450 [facility] Comment on above: Performed By: #### 2 4331-1, CBCA, CMP, TSHR #### [facility] ([id number]) [address] [address] [place] [address] RBC COUNT 5.17 X10E12/L Normal 3.80-5.20 [facility] Comment on above: Performed By: #### 2 4331-1, CBCA, CMP, TSHR #### [facility] ([id number]) [address] [address] WBC (Bld) [#/Vol] 10.9 10*3/uL Normal 4.0-11.0 [facility] Comment on above: Performed By: #### 2 4331-1, CBCA, CMP, TSHR #### [facility] ([id number]) [address], [address] [place] [address] COMPREHENSIVE METABOLIC PANE Dirk 03-16-2023 Albumin [Mass/Vol] 4.7 g/dL Normal 3.2-5.3 [facility] Comment on above: Performed By: #### 2 4331-1, CBCA, CMP, TSHR #### [facility] ([id number]) [address], [address] [place] [address] ALP [Catalytic activity/Vol] 74 U/L Normal 39-130 [facility] Comment on above: Performed By: #### 2 4331-1, CBCA, CMP, TSHR #### [facility] ([id number]) [address], [address] [place] [address] ALT [Catalytic activity/Vol] 22 U/L Normal 0-31 [facility] Comment on above: Performed By: #### 2 4331-1, CBCA, CMP, TSHR #### [facility] ([id number]) [address], [address] [place] [address] Anion gap [Moles/Vol] 12 mmol/L Normal 5-15 [facility] Comment on above: Performed By: #### 2 4331-1, CBCA, CMP, TSHR #### [facility] ([id number]) [address], [address] [place] [address] AST [Catalytic activity/Vol] 20 U/L Normal 0-41 [facility] Comment on above: Performed By: #### 2 4331-1, CBCA, CMP, TSHR #### [facility] ([id number]) [address], [address] [place] [address] Bilirubin [Mass/Vol] 0.5 mg/dL Normal 0.3-1.2 [facility] Comment on above: Performed By: #### 2 4331-1, CBCA, CMP, TSHR #### [facility] ([id number]) [address], [address] [place] [address] Calcium [Mass/Vol] 9.9 mg/dL Normal 8.5-10.5 [facility] Comment on above: Performed By: #### 2 4331-1, CBCA, CMP, TSHR #### [facility] ([id number]) [address], [address] [place] [address] Chloride [Moles/Vol] 105 mmol/L Normal 98-109 [facility] Comment on above: Performed By: #### 2 4331-1, CBCA, CMP, TSHR #### [facility] ([id number]) [address] [address] [place] [address] CO2 [Moles/Vol] 25 mmol/L Normal 22-32 [facility] Comment on above: Performed By: #### 2 4331-1, CBCA, CMP, TSHR #### [facility] ([id number]) [address] [address] Creatinine [Mass/Vol] 0.74 mg/dL Normal 0.40-1.00 [facility] Comment on above: Result Comment: METH OD TRACEABLE TO IDMS STANDARD Performed By: #### 2 4331-1, CBCA, CMP, TSHR #### [facility] ([id number]) [address] [address] eGFR (CKD-EPI) NON-RACE DEPENDENT >90 Normal >59 [facility] Comment on above: Result Comment: Reported eGFR is based on the CKD-EPI 2020 equation that does not use a race coefficient. Performed By: #### 2 4331-1, CBCA, CMP, TSHR #### [facility] ([id number]) [address] [address] Glucose [Mass/Vol] 143 mg/dL High 65-99 [facility] Comment on above: Performed By: #### 2 4331-1, CBCA, CMP, TSHR #### [facility] ([id number]) [address] [address] Potassium [Moles/Vol] 3.8 mmol/L Normal 3.5-5.0 [facility] Comment on above: Performed By: #### 2 4331-1, CBCA, CMP, TSHR #### [facility] ([id number]) [address] [place] [address] Protein [Mass/Vol] 7.8 g/dL Normal 6.0-8.0 [facility] Comment on above: Performed By: #### 2 4331-1, CBCA, CMP, TSHR #### [facility] ([id number]) [address], [facility] [address] [place] [address] Sodium [Moles/Vol] 142 mmol/L Normal 134-146 [facility] Comment on above: Performed By: #### 2 4331-1, CBCA, CMP, TSHR #### [facility] ([id number]) [address], [facility] [address] [place] [address] Urea nitrogen [Mass/Vol] 17 mg/dL Normal 5-23 [facility] Comment on above: Performed By: #### 2 4331-1, CBCA, CMP, TSHR #### [facility] ([id number]) [address], [facility] [address] [place] [address] HGB A1C (GLYCO-HGB)on 2023 Glucose [Mass/Vol] 117 mg/dL Normal [facility] Comment on above: Performed By: #### 2 4331-1, CBCA, CMP, TSHR #### [facility] ([id number]) [address] [address] [place] [address] HbA1c (Bld) [Mass fraction] 5.7 % High 4.4-5.6 [facility] Comment on above: Result Comment: NOTE ADA Guidelines Result HgbA1c Normal : less than 5.7 % Prediabetes : 5.7 % to 6.4 % Diabetes : > 6.4 % Use with caution in patients with abnormal hemoglobin variants as the half-life of red blood cells and in vivo glycation rates are affected. Performed By: #### 2 4331-1, CBCA, CMP, TSHR #### [facility] ([id number]) [address] [place] [address] Lipid 1996 panelon 4 Cholesterol [Mass/Vol] 132 mg/dL Low 150-200 [facility] Comment on above: Performed By: #### 2 4331-1, CBCA, CMP, TSHR #### [facility] ([id number]) [address], [address] [place] [address] Cholesterol in HDL [Mass/Vol] 58 mg/dL Normal >39 [facility] Comment on above: Result Comment: HDL <40 mg/dL - High Risk HDL > or = 40mg/dL- Desirable HDL >60 mg/dL - Negative Risk Performed By: #### 2 4331-1, CBCA, CMP, TSHR #### [facility] ([id number]) [address] [place] [address] Cholesterol in LDL [Mass/Vol] 51 mg/dL Normal <130 [facility] Comment on above: Result Comment: LDL <100 mg/dL - Desirable LDL >160 mg/dL - High Risk Performed By: #### 2 4331-1, CBCA, CMP, TSHR #### [facility] ([id number]) [address] [place] [address] Cholesterol in VLDL [Mass/Vol] 23 mg/dL Normal 0-30 [facility] Comment on above: Performed By: #### 2 4331-1, CBCA, CMP, TSHR #### [facility] ([id number]) [address], [address] [place] [address] CHOLESTEROL:HDL 2.3 Normal 1.0-5.0 [facility] Comment on above: Performed By: #### 2 4331-1, CBCA, CMP, TSHR #### [facility] ([id number]) [address] [place] [address] Triglyceride [Mass/Vol] 114 mg/dL Normal 27-150 [facility] Comment on above: Performed By: #### 2 4331-1, CBCA, CMP, TSHR #### [facility] ([id number]) [address] [place] [address] MAMM SCREENING BILATERAL W C global logistics analyst 03-16-2023 MAMM SCREENING BILATERAL W CAD MAMM [...] 3:25 PM 0A a ADDITIONAL I Normal [facility] TSH WITH REFLEXon 03-16-2023 TSH 0.55 uIU/mL Normal 0.49-4.67 [facility] Comment on above: Performed By: #### 2 4331-1, CBCA, CMP, TSHR #### [facility] ([id number]) [address] [facility], [address] [place] [address] PT - Assessmentson 3 PT - Assessments [id number]#1.00CD:[address] [facility] [address] - Assessmentson 3 ST - Assessments [id number]#1.00CD:127 [facility] Consenton 09-25-2022 Consent [id number]#1.00CD:127 [facility] Outside Recordson 2022 Outside Records [id number]#1.00CD:[address] [facility] [address] - Orderson 2022 ST - Orders [id number]#1.00CD:[address] [facility] [address] - Orders [id number]#1.00CD:[address] [facility] [address] - Otheron 2022 ST - Other [id number]#1.00CD:127 [facility] PAP ACOG PANEL 2: 30 to 65on 05-27-2022 . . [facility] Comment on above: Result Comment: Perf ormed at: WB Performed By: #### 4 [id number] #### [facility] [address] [address] [address] Do Aguilar Age Gdln ACOG Testing 30-65 [facility] Comment on above: Performed By: #### 4 [id number] #### [facility] [address] [address] [address] Do Aguilar DIAGNOSIS: Comment [facility] Comment on above: Result Comment: NEGA TIVE FOR INTRAEPITHELIAL LESION OR MALIGNANCY. Performed at: WB Performed By: #### 4 [id number] #### [facility] [address] [place] [address] Dr. Do Aguilar HPV Aptima Negative Normal Negative [facility] Comment on above: Result Comment: This nucleic acid amplification test detects fourteen high-risk HPV types (16,18,31,33,35,39,45,51,52,56,58,59,66,68) without differentiation. Performed at: =G Performed By: #### 4 [id number] #### [facility] [address] [address] [address] Do Aguilar HPV Genotype Reflex Comment Normal [facility] Comment on above: Result Comment: Crit eria not met, HPV Genotype not performed. Performed at: WB Performed By: #### 4 [id number] #### [facility] [address] [place] [address] Dr. Do Aguilar Methodology: Comment Normal [facility] Comment on above: Result Comment: This liquid based ThinPrep(R) pap test was screened with the use of an image guided system. Performed at: WB Performed By: #### 4 [id number] #### [facility] [address] [place] [address] Dr. Do Aguilar Note: Comment Normal [facility] Comment on above: Result Comment: The Pap smear is a screening test designed to aid in the detection of premalignant and malignant conditions of the uterine cervix. It is not a diagnostic procedure and should not be used as the sole means of detecting cervical cancer. Both false-positive and false-negative reports do occur. . Performed at: WB Performed By: #### 4 [id number] #### [facility] [address] [place] [address] Dr. Do Aguilar Performed by: Comment Normal [facility] Comment on above: Result Comment: Melissa Ramachandran, Experimental Aircraft Mechanic (ASCP) Performed at: WB Performed By: #### 4 [id number] #### [facility] [address] [place] [address] Dr. Do Aguilar Specimen adequacy: Comment Normal [facility] Comment on above: Result Comment: Sati sfactory for evaluation. Endocervical and/or squamous metaplastic cells (endocervical component) are present. Performed at: WB Performed By: #### 4 [id number] #### [facility] [address] [place] [address] Dr. Do Aguilar HEPATITIS C AB CASCADE TO QU ANT PCR GENOon 02-18-2022 HCV AB <0.1 Normal 0.0-0.9 [facility] Comment on above: Performed By: #### H EPCASC #### [facility] [address] [place] [address] Dr. Do Aguilar Interpretation: Comment Normal [facility] Comment on above: Result Comment: Nega tive Not infected with HCV, unless recent infection is suspected or other evidence exists to indicate HCV infection. Performed By: #### H EPCASC #### [facility] [address] [place] [address] Dr. Do Aguilar LIVER PROFILEon 02-17-2022 Albumin [Mass/Vol] 3.6 g/dL Normal 3.4-5.0 [facility] Comment on above: Performed By: #### L IVER #### [facility] [address] [place] [address] Dr. Do Aguilar Albumin/Globulin [Mass ratio] 0.9 {ratio} Normal [facility] Comment on above: Performed By: #### L IVER #### [facility] [address] [place] [address] Dr. Do Aguilar ALP [Catalytic activity/Vol] 79 U/L Normal 46-116 [facility] Comment on above: Performed By: #### L IVER #### [facility] [address] [place] [address] Dr. Do Aguilar ALT [Catalytic activity/Vol] 51 U/L Normal 14-59 [facility] Comment on above: Performed By: #### L IVER #### [facility] [address] [place] [address] Dr. Do Aguilar AST [Catalytic activity/Vol] 33 U/L Normal 15-37 [facility] Comment on above: Performed By: #### L IVER #### [facility] [address] [place] [address] Dr. Do Aguilar BILI, CONJUGATED 0.1 mg/dL Normal 0.0-0.2 [facility] Comment on above: Performed By: #### L IVER #### [facility] [address] [place] [address] Dr. Do Aguilar Bilirubin [Mass/Vol] 0.3 mg/dL Normal 0.2-1.0 [facility] Comment on above: Performed By: #### L IVER #### [facility] [address] [place] [address] Dr. Do Aguilar Globulin (S) [Mass/Vol] 4.2 g/dL Normal [facility] Comment on above: Performed By: #### L IVER #### [facility] [address] [place] [address] Dr. Do Aguilar Protein [Mass/Vol] 7.8 g/dL Normal 6.4-8.2 [facility] Comment on above: Performed By: #### L IVER #### [facility] [address] [place] [address] Dr. Do Aguilar TSHon 02-17-2022 TSH 0.457 uIU/mL Normal 0.358-3.74 0 [facility] Comment on above: Performed By: #### T SH #### [facility] [address] [place] [address] Dr. Do Aguilar VITAMIN B12on 02-17-2022 Cobalamin (Vitamin B12) [Mass/Vol] 1864.0 pg/mL Critically high 193.0-986. 0 [facility] Comment on above: Performed By: #### V ITB12 #### [facility] [address] [place] [address] Dr. Do Aguilar History and Physicalon 12-04 History and Physical [id number]#1.00OTGTIFF [facility] Operative Report - Surgeon/P godwin 12-04-2016 Operative Report - Surgeon/Physician [id number]#1.00[facility] Coding Summaryon 11-26-2016 Coding Summary CODING DATE: 017 [facility] STATUS: Home PAYOR: Medicaid HMO ADMIT DX: REASON FOR VISIT DX: R10.13 Epigastric pain R10.11 Right upper quadrant pain FINAL DX: PRINCIPAL: K29.70 Gastritis, unspecified, without bleeding SECONDARY: PROCEDURES DOCTOR NAME DATE 10014 Esophagogastroduodenoscopy , Juan Ramon Jean MD 11/21/2016 flexible, transoral; with biopsy, single or multiple NOTE: The code number assigned matches the documented diagnosis and / or procedure in the patient's chart. However, the narrative phrase printed from the coding software may appear abbreviated, or result in slightly different terminology. Coded By: Rosalba Laureano Date Saved: 11/26/2016 01:09 pm [facility] Consent Formson 11-24-2016 Consent Forms [id number]#1.00[facility] Intraoperative [facility] 2016 Intraoperative Note [id number]#1.00[facility] Intra[facility] Note [id number]#1.00[facility] Operative Report - Surgeon/P godwin 11-24-2016 Operative Report - Surgeon/Physician DATE OF PROCEDURE: 11/21/2016PREOPERATIVE DIAGNOSIS: Epigastric pain/right upper quadrant pain.POSTOPERATIVE DIAGNOSIS: Moderate gastritis.PROCEDURE PERFORMED: EGD with biopsy x1 from the antrum of the stomach forH. pylori testing.SURGEON: Juan Ramon Jean M.D.ANESTHESIA: Conscious sedation with Versed 6 mg IV, Demerol 50 mg IV.FINDINGS: As above.DISPOSITION: To the [facility] area in fair condition.INDICATIONS: The patient is [...] in two weeks.Juan Ramon Jean M.D.JOB #: [id number]: 11/21/2016T: 11/21/2016[Electronically Signed on: 12/03/2016 07:09 EDT] Juan Ramon Jean MD Generated Domain User for [id number][Verified on: 12/03/2016 07:09 EDT] Juan Ramon Jean MD[Transcribed on: 11/21/2016 11:37 EDT][facility] Telemetry Stripson 7 Telemetry Strips [id number]#1.00OTGTIFF [facility] Telemetry Strips [id number]#1.00[facility] H. Pylori Gastricon 11-22-19 17 H. Pylori Rico Int Ctrl Pass [facility] Comment on above: Order Comment: H. (A NTRUM) Result Comment: Pass Performed By: #### 2 [id number] ####[facility] (DEFAULT)[address] [place] [address] H. Pylori Gastric Negative Normal Negative [facility] Comment on above: Order Comment: H. (A NTRUM) Result Comment: Nega tive Performed By: #### 2 [id number] ####[facility] (DEFAULT)[address] [place] [address] Inpatient Clinical Summaryon 11-21-2016 Inpatient Clinical Summary [facility] SURGERYClinical Discharge SummaryPERSON INFORMATIONName KARMA SR Age 36 Years 80Sex FEMALE Language Malagasy PCP HAZEL, DAVIDMarital Status Med Service Ambulatory SurgeryMRN [id number] Acct# Arrival 11/21/16 07:22:21Visit Reason EGD - EPIGASTRIC ABDOMINAL PAIN Acuity LOS 013 23:19Address:[address] [facility] [address]Afjdssk:PROVIDER INFORMATIONVITALS INFORMATIONVital Sign Triage LatestTemp OralTemp Temporal 36.4 DegC 36.4 DegCTemp IntravascularTemp AxillaryTemp [id number] Sat 100 % 97 %Respiratory Rate 16 [...] llow up:With: Address: When:Juan Ramon Jean [address] [place] [address] Business (1) Within 2 to 4 weeksComments:Call for follow up appointmentWith: Address: When:DOMENICA OLIVA [facility] [place] [address] Business (1)DIAGNOSISAcute gastritisComment:PHYS DOC NOTES Normal [facility] Inpatient Patient Summaryon 11-21-2016 Inpatient Patient Summary [address] [address] patient Discharge InstructionsName: KARMA SRDOB: [birth year] Address: [address] [place] [address] Care Provider:Name: DOMENICA OLIVAPhone: Discharge Diagnosis: Acute [...] or business decisions or sign any legal documentsTrinity Health System would like to thank you for allowing us to assist you with your healthcare needs. The following includes patient education materials and information regarding your injury/illness.KARMA SR has been given the following list of follow-up instructions, prescriptions, and patient education materials:Follow-up InstructionsWith: Address: When:Juan Ramon Jean [address] [place] [id number] [facility] (1) Within 2 to 4 weeksComments:Call for follow up appointmentWith: Address: When:DOMENICA OLIVA [address] [place] [address] [facility] (4)MedicationsDuring the course of your visit, your medication [...] for Disease Control and Prevention October 2013 [facility] MAGR Endo Intraoperative Rec ordon 11-21-2016 [facility] Intraoperative Record [facility] Intra-Op Record Summary Primary Physician: Juan Ramon Jean MD Finalized Date/Time: 11/21/16 08:37:38 Pt. Name: KARMA SR /Sex: 1980 FEMALE Med Rec #: [id number] Physician: Juan Ramon Jean MD Financial #: [id number] Pt. Type: D Room/Bed: / Admit/Disch: 11/21/16 [...] Jane RN Role Performed Surgeon - Primary Convention Worker Convention Worker Time In 11/21/16 08:06:00 11/21/16 08:06:00 [...] Unfinalizing Freetext Reason for Unfinalizing 11/21/16 08:37 [facility] Normal [facility] MAGR Endo Postoperative Benjamin rdon 11-21-2016 [facility] Endo Postoperative Record [facility] Endo Phase II Record Summary Primary Physician: Juan Ramon Jean MD Finalized Date/Time: 11/21/16 10:02:07 Pt. Name: KARMA SR/Sex: 1980 FEMALE Med Rec #: [id number] Physician: Juan Ramon Jean MD Financial #: [id number] Pt. Type: D Room/Bed: / Admit/Disch: 11/21/16 [...] have to because of my back problems. 09 Disch instructions reviewed with pt and girlfriend, [...] Signed By: Cammy Barroso RN 11/21/16 10:02 [facility] MAGR Endo Preoperative Recor don 11-21-2016 [facility] Endo Preoperative Record [facility] End[facility] Pre-Op Record Summary Primary Physician: Juan Ramon Jean MD Finalized Date/Time: 11/21/16 08:27:58 Pt. Name: KARMA SR/Sex: 1980 FEMALE Med Rec #: [id number] Physician: Juan Ramon Jean MD Financial #: [id number] Pt. Type: D Room/Bed: / Admit/Disch: 11/21/16 [...] Signed By: Cammy Barroso RN 11/21/16 08:27 [facility] Test Urine 1on U Preg Negative [facility] Comment on above: Result Comment: Nega tive Performed By: #### 3 [id number] ####[facility] (DEFAULT)[address] [place] [address] U Preg Internal Control Pass [facility] Comment on above: Result Comment: Pass Performed By: #### 3 [id number] ####[facility] (DEFAULT)[address] [place] [address] Vital Signs Date Time Vital Sign Value Performing Clinician Facility 06-02-2023 14:32-0400 Body mass index (BMI) [Ratio] 36.67 kg/m2 Deepika Robledo MD Work Phone: [facility] 06-02-2023 14:32-0400 Body weight 93.89 kg Deepika Robledo MD Work Phone: [facility] 06-02-2023 14:32-0400 Diastolic blood pressure 102 mm[Hg] Deepika Robledo MD Work Phone: [facility] 06-02-2023 14:32-0400 Heart rate 83 /min Deepika Robledo MD Work Phone: [facility] 06-02-2023 14:32-0400 Systolic blood pressure 136 mm[Hg] Deepika Robledo MD Work Phone: [facility] 05-21-2023 11:22-0400 Body height 160.02 cm [facility] 05-21-2023 11:22-0400 Body mass index (BMI) [Ratio] 36.5 kg/m2 [facility] 05-21-2023 11:22-0400 Body weight 93.44 kg [facility] 05-21-2023 10:39-0400 Body height 160.02 cm [facility] 05-21-2023 10:39-0400 Body mass index (BMI) [Ratio] 36.5 kg/m2 [facility] 05-21-2023 10:39-0400 Body weight 93.49 kg [facility] 05-21-2023 10:39-0400 Diastolic blood pressure 77 mm[Hg] [facility] 05-21-2023 10:39-0400 Heart rate 105 /min [facility] 05-21-2023 10:39-0400 Respiratory rate 18 /min [facility] 05-21-2023 10:39-0400 SaO2% (BldA) [Mass fraction] 95 % [facility] 05-21-2023 10:39-0400 Systolic blood pressure 114 mm[Hg] [facility] 04-28-2023 11:21-0500 Body height 160 cm Gaurav CALVO Work Phone: [facility] 04-28-2023 11:21-0500 Body mass index (BMI) [Ratio] 36.14 kg/m2 Gaurav CALVO Work Phone: [facility] 04-28-2023 11:21-0500 Body weight 92.53 kg Gaurav CALVO Work Phone: [facility] 04-28-2023 11:21-0500 Diastolic blood pressure 82 mm[Hg] Gaur[facility] Sellers PA [facility] 04-28-2023 11:21-0500 Heart rate 87 /min Gaurav Mercertenzin [facility] 04-28-2023 11:21-0500 Respiratory rate 16 /min Gaurav Mercertenzin PA [facility] 04-28-2023 11:21-0500 SaO2% (BldA) [Mass fraction] 97 % Gaurav Mercertenzin PA [facility] 04-28-2023 11:21-0500 Systolic blood pressure 122 mm[Hg] Gaurav Mercertenzin PA [facility] 04-20-2023 12:41-0500 Body mass index (BMI) [Ratio] 36.49 kg/m2 Shawna Rumschlag DO Work Phone: [employer] 04-20-2023 12:41-0500 Body weight 93.44 kg Shawna Rumschlag DO Work Phone: [employer] 04-20-2023 12:41-0500 Diastolic blood pressure 76 mm[Hg] Shawna Rumschlag DO Work Phone: [employer] 04-20-2023 12:41-0500 Heart rate 83 /min Shawna Rumschlag DO Work Phone: [employer] 04-20-2023 12:41-0500 Respiratory rate 16 /min Shawna Rumschlag DO Work Phone: [employer] 04-20-2023 12:41-0500 SaO2% (BldA) [Mass fraction] 98 % Shawna Rumschlag DO Work Phone: [employer] 04-20-2023 12:41-0500 Systolic blood pressure 129 mm[Hg] Shawna Rumschlag DO Work Phone: [employer] 04-20-2023 12:39-0500 Body temperature 97.3 [degF] Shawna Mcfadden DO Work Phone: [facility] 03-18-2023 11:30-0500 Diastolic blood pressure 84 mm[Hg] MD Yo Blank Work Phone: [facility] 03-18-2023 11:30-0500 Heart rate 95 /min MD Yo Blank Work Phone: [facility] 03-18-2023 11:30-0500 Respiratory rate 16 /min MD Yo Blank Work Phone: [facility] 03-18-2023 11:30-0500 SaO2% (BldA) [Mass fraction] 99 % MD Yo Blank Work Phone: [facility] 03-18-2023 11:30-0500 Systolic blood pressure 123 mm[Hg] MD Yo Blank Work Phone: [facility] 03-05-2023 09:15-0500 Body height 160.02 cm Gayathri Scally Other el? Other 03-05-2023 09:15-0500 Body mass index (BMI) [Ratio] 37.57 kg/m2 Gayathri Scally Other el? Other 03-05-2023 09:15-0500 Body weight 96.21 kg Gayathri Scally Other el? Other 03-05-2023 09:15-0500 Diastolic blood pressure 89 mm[Hg] Gayathri Scally Other el? Other 03-05-2023 09:15-0500 Respiratory rate 18 /min Gayathri Scally Other el? Other 03-05-2023 09:15-0500 SaO2% (BldA) [Mass fraction] 96 % Gayathri Adams Other el? Other 03-05-2023 09:15-0500 Systolic blood pressure 122 mm[Hg] Gayathri Adams Other el? Other 03-02-2023 19:24-0500 Body height 160 cm Sil Sullivan DO Work Phone: [employer] 03-02-2023 19:24-0500 Body mass index (BMI) [Ratio] 36.31 kg/m2 Sil uSllivan DO Work Phone: [employer] 03-02-2023 19:24-0500 Body temperature 98.29 [degF] Sil Sullivan DO Work Phone: [employer] 03-02-2023 19:24-0500 Body weight 92.99 kg Sil Sullivan DO Work Phone: [employer] 03-02-2023 19:24-0500 Diastolic blood pressure 98 mm[Hg] Sil Sullivan DO Work Phone: [employer] 03-02-2023 19:24-0500 Heart rate 82 /min Sil Sullivan DO Work Phone: [employer] 03-02-2023 19:24-0500 Respiratory rate 18 /min Sil Sullivan DO Work Phone: [employer] 03-02-2023 19:24-0500 SaO2% (BldA) [Mass fraction] 98 % Sil Sullivan DO Work Phone: [employer] 03-02-2023 19:24-0500 Systolic blood pressure 139 mm[Hg] Sil Sullivan DO Work Phone: [employer] 02-05-2023 09:20-0500 Body height 160.02 cm Jan Scovanjillian Other el? Other 02-05-2023 09:20-0500 Body mass index (BMI) [Ratio] 36.66 kg/m2 Jan Scovanner Other el? Other 02-05-2023 09:20-0500 Body weight 93.9 kg Jan Scovanner Other el? Other 01-15-2023 09:45-0500 Body height 160.02 cm Gayathri Scally Other el? Other 01-15-2023 09:45-0500 Body mass index (BMI) [Ratio] 36.68 kg/m2 Gayathri Scally Other el? Other 01-15-2023 09:45-0500 Body weight 93.94 kg Gayathri Scally Other el? Other 01-15-2023 09:45-0500 Diastolic blood pressure 83 mm[Hg] Gayathri Scally Other el? Other 01-15-2023 09:45-0500 Respiratory rate 18 /min Gayathri Scally Other el? Other 01-15-2023 09:45-0500 SaO2% (BldA) [Mass fraction] 99 % Gayathri Scally Other el? Other 01-15-2023 09:45-0500 Systolic blood pressure 119 mm[Hg] Gayathri Scally Other el? Other 01-07-2023 10:00-0500 Body height 160.02 cm Jan Scovanner Other el? Other 01-07-2023 10:00-0500 Body mass index (BMI) [Ratio] 36.13 kg/m2 Jan Scovanner Other el? Other 01-07-2023 10:00-0500 Body weight 92.53 kg Jan Scovanner Other el? Other 01-07-2023 10:00-0500 Diastolic blood pressure 74 mm[Hg] Jan Scovanner Other el? Other 01-07-2023 10:00-0500 Systolic blood pressure 118 mm[Hg] Jan Scovanner Other el? Other 08-28-2022 09:00-0400 Body height 160.02 cm Tamar Fitt Other el? Other 08-28-2022 09:00-0400 Body mass index (BMI) [Ratio] 35.8 kg/m2 Tamar Fitt Other el? Other 08-28-2022 09:00-0400 Body weight 91.67 kg Tamar Fitt Other el? Other 07-29-2022 10:15-0400 Body height 160.02 cm Gayathri Scally Other el? Other 07-29-2022 10:15-0400 Body mass index (BMI) [Ratio] 35.18 kg/m2 Gayathri Scally Other el? Other 07-29-2022 10:15-0400 Body weight 90.08 kg Gayathri Scally Other el? Other 07-29-2022 10:15-0400 Diastolic blood pressure 84 mm[Hg] Gayathri Scally Other el? Other 07-29-2022 10:15-0400 Respiratory rate 18 /min Gayathri Scally Other el? Other 07-29-2022 10:15-0400 SaO2% (BldA) [Mass fraction] 99 % Gayathri Scally Other el? Other 07-29-2022 10:15-0400 Systolic blood pressure 127 mm[Hg] Gayathri Scally Other el? Other 05-20-2022 11:15-0400 Body height 160.02 cm Gayathri Scally Other el? Other 05-20-2022 11:15-0400 Body mass index (BMI) [Ratio] 34.52 kg/m2 Gayathri Scally Other el? Other 05-20-2022 11:15-0400 Body weight 88.41 kg Gayathri Scally Other el? Other 05-20-2022 11:15-0400 Diastolic blood pressure 82 mm[Hg] Gayathri Scally Other el? Other 05-20-2022 11:15-0400 Respiratory rate 18 /min Gayathri Scally Other el? Other 05-20-2022 11:15-0400 SaO2% (BldA) [Mass fraction] 97 % Gayathri Scally Other el? Other 05-20-2022 11:15-0400 Systolic blood pressure 121 mm[Hg] Gayathri Scally Other el? Other 04-08-2022 11:15-0500 Body height 160.02 cm Gayathri Scally Other el? Other 04-08-2022 11:15-0500 Body mass index (BMI) [Ratio] 34.49 kg/m2 Gayathri Scally Other el? Other 04-08-2022 11:15-0500 Body weight 88.32 kg Gayathri Scally Other el? Other 04-08-2022 11:15-0500 Diastolic blood pressure 77 mm[Hg] Gayathri Scally Other el? Other 04-08-2022 11:15-0500 Respiratory rate 18 /min Gayathri Scally Other el? Other 04-08-2022 11:15-0500 SaO2% (BldA) [Mass fraction] 98 % Gayathri Scally Other el? Other 04-08-2022 11:15-0500 Systolic blood pressure 110 mm[Hg] Gayathri Scally Other el? Other 04-08-2022 10:15-0500 Body height 160.02 cm Tamar Fitt Other el? Other 04-08-2022 10:15-0500 Body mass index (BMI) [Ratio] 34.49 kg/m2 Tamar Fitt Other el? Other 04-08-2022 10:15-0500 Body weight 88.32 kg Tamar Fitt Other el? Other 02-26-2022 10:00-0500 Body height 160.02 cm Tamar Fitt Other el? Other 02-25-2022 11:45-0500 Body height 160.02 cm Gayathri Scally Other el? Other 02-25-2022 11:45-0500 Body mass index (BMI) [Ratio] 36.63 kg/m2 Gayathri Scally Other el? Other 02-25-2022 11:45-0500 Body weight 93.8 kg Gayathri Scally Other el? Other 02-25-2022 11:45-0500 Diastolic blood pressure 78 mm[Hg] Gayathri Scally Other el? Other 02-25-2022 11:45-0500 Respiratory rate 18 /min Gayathri Scally Other el? Other 02-25-2022 11:45-0500 SaO2% (BldA) [Mass fraction] 97 % Gayathri Scally Other el? Other 02-25-2022 11:45-0500 Systolic blood pressure 109 mm[Hg] Gayathri Scally Other el? Other 01-14-2022 11:45-0500 Body height 160.02 cm Gayathri Scally Other el? Other 01-14-2022 11:45-0500 Body mass index (BMI) [Ratio] 39.37 kg/m2 Gayathri Scally Other el? Other 01-14-2022 11:45-0500 Body weight 100.84 kg Gayathri Scally Other el? Other 01-14-2022 11:45-0500 Diastolic blood pressure 88 mm[Hg] Gayathri Scally Other el? Other 01-14-2022 11:45-0500 Respiratory rate 18 /min Gayathri Scally Other el? Other 01-14-2022 11:45-0500 SaO2% (BldA) [Mass fraction] 97 % Gayathri Scally Other el? Other 01-14-2022 11:45-0500 Systolic blood pressure 124 mm[Hg] Gayathri Scally Other el? Other 12-04-2021 12:00-0400 Body height 160.02 cm Gayathri Scally Other el? Other 12-04-2021 12:00-0400 Body mass index (BMI) [Ratio] 39.73 kg/m2 Gayathri Scally Other el? Other 12-04-2021 12:00-0400 Body weight 101.74 kg Gayathri Scally Other el? Other 12-04-2021 12:00-0400 Diastolic blood pressure 74 mm[Hg] Gayathri Scally Other el? Other 12-04-2021 12:00-0400 Respiratory rate 18 /min Gayathri Scally Other el? Other 12-04-2021 12:00-0400 SaO2% (BldA) [Mass fraction] 95 % Gayathri Scally Other el? Other 12-04-2021 12:00-0400 Systolic blood pressure 110 mm[Hg] Gayathri Scally Other el? Other 10-29-2021 11:30-0400 Body height 160.02 cm Yo Blank Other el? Other 10-29-2021 11:30-0400 Body mass index (BMI) [Ratio] 38.61 kg/m2 Yo Blank Other el? Other 10-29-2021 11:30-0400 Body weight 98.88 kg Yo Blank Other el? Other 10-29-2021 11:30-0400 Diastolic blood pressure 74 mm[Hg] Yo Blank Other el? Other 10-29-2021 11:30-0400 Systolic blood pressure 111 mm[Hg] Yo Blank Other [facility] Other 10-22-2021 13:26-0400 Body temperature 97.2 [degF] Shawna Rumschlag DO Work Phone: [employer] 10-22-2021 13:26-0400 Diastolic blood pressure 71 mm[Hg] Shawna Rumschlag DO Work Phone: [employer] 10-22-2021 13:26-0400 Heart rate 85 /min Shawna Rumschlag DO Work Phone: [employer] 10-22-2021 13:26-0400 Respiratory rate 16 /min Shawna Rumschlag DO Work Phone: [employer] 10-22-2021 13:26-0400 SaO2% (BldA) [Mass fraction] 94 % Shawna Rumschlag DO Work Phone: [employer] 10-22-2021 13:26-0400 Systolic blood pressure 131 mm[Hg] Shawna Rumschlag DO Work Phone: [employer] 10-11-2021 23:48-0400 Body height 160 cm Daniel Adkins MD Work Phone: [employer] 10-11-2021 23:48-0400 Body mass index (BMI) [Ratio] 36.67 kg/m2 Daniel Adkins MD Work Phone: [employer] 10-11-2021 23:48-0400 Body temperature 98.6 [degF] Daniel Adkins MD Work Phone: [employer] 10-11-2021 23:48-0400 Body weight 93.89 kg Daniel Adkins MD Work Phone: [employer] 10-11-2021 23:48-0400 Diastolic blood pressure 88 mm[Hg] Daniel Adkins MD Work Phone: [facility] [employer] [facility] 10-11-2021 23:48-0400 Heart rate 97 /min Daniel Adkins MD Work Phone: [facility] 10-11-2021 23:48-0400 Respiratory rate 16 /min Daniel Adkins MD Work Phone: [facility] [employer] 10-11-2021 23:48-0400 SaO2% (BldA) [Mass fraction] 96 % Daniel Adkins MD Work Phone: [facility] 10-11-2021 23:48-0400 Systolic blood pressure 134 mm[Hg] Daniel Adkins MD Work Phone: [facility] Encounters Encounter Date Encounter Type Care Provider Facility Start: 10-20-2023 ambulatory [facility] Start: 10-08-2023 End: 10-08-2023 ambulatory DWAYNE PALMER [facility] Start: 10-06-2023 End: 10-07-2023 Emergency department patient visit [facility] Start: 10-05-2023 End: 10-05-2023 Emergency department patient visit [facility] Start: 10-05-2023 End: 10-05-2023 Emergency department patient visit [facility] Start: 09-22-2023 End: 09-22-2023 Subsequent hospital visit by physician Jan Olmstead PT [facility] Start: 09-15-2023 End: 09-15-2023 [facility] Start: 09-07-2023 End: 09-07-2023 ambulatory SHAWNA RUMNAFISAG [facility] Start: 09-01-2023 End: 09-01-2023 [facility] Start: 08-26-2023 End: 08-26-2023 ambulatory [facility] Start: 08-26-2023 End: 08-26-2023 Subsequent hospital visit by physician Kofi Villegas PT [facility] Physical Therapy Comment on above: Arrived Start: 08-21-2023 End: 08-21-2023 ambulatory [facility]AWNA RUMSCHLAG [facility] Start: 08-21-2023 End: 08-21-2023 Subsequent hospital visit by physician Jan Olmstead PT [facility] Physical Therapy Comment on above: Arrived Start: 08-13-2023 End: 08-13-2023 ambulatory LAILA LIEBERMAN Not Available Start: 08-11-2023 End: 08-11-2023 ambulatory SHAWNA RUMSCHLAG [facility] Start: 08-11-2023 End: 08-11-2023 Subsequent hospital visit by physician Jan Olmstead PT [facility] Physical Therapy Comment on above: Arrived Start: 08-04-2023 End: 08-04-2023 ambulatory SHAWNA RUMSCHLAG [facility] Start: 07-29-2023 End: 07-29-2023 ambulatory SHAWNA RUMSCHLAG [facility] Start: 07-14-2023 End: 07-14-2023 Subsequent hospital visit by physician Rebecca Skinner PT [facility] Physical Therapy Start: 07-07-2023 End: 07-07-2023 ambulatory SHAWNA RUMSCHLAG [facility] Start: 06-30-2023 End: 06-30-2023 ambulatory SHAWNA RUMSCHLAG [facility] Start: 06-17-2023 End: 06-17-2023 ambulatory SHAWNA RUMSCHLAG [facility] Start: 06-16-2023 End: 06-16-2023 ambulatory SHAWNA RUMSCHLAG [facility] Start: 06-04-2023 End: 06-04-2023 ambulatory SHAWNA RUMSCHLAG [facility] Start: 06-03-2023 End: 06-03-2023 [facility] Start: 06-02-2023 End: 06-02-2023 Office outpatient new 30 minutes Deepika Robledo MD [facility] Comment on above: Mass of upper outer quadrant of right breast (Primary Dx); Abnormal mammogram; Symptomatic mammary hypertrophy Start: 06-02-2023 End: 06-02-2023 ambulatory DEEPIKA Pandya [facility] Start: 06-02-2023 ambulatory [facility] Start: 05-25-2023 End: 05-25-2023 ambulatory ALICIA PRESTON Not Available Start: 05-21-2023 End: 05-21-2023 Patient encounter procedure [facility] Physician [facility] Gastroenterology Work Phone: Start: 05-21-2023 End: 05-21-2023 Patient encounter procedure [facility] Physician [facility] Work Phone: Start: 05-20-2023 End: 05-20-2023 ambulatory [facility]AWNA RUMSCHLAG [facility] Start: 05-19-2023 End: 05-19-2023 ambulatory SHAWNA RUMSCHLAG [facility] Start: 05-12-2023 Telephone encounter Deepika Robledo MD Work Phone: [facility] Start: 05-06-2023 End: 05-06-2023 ambulatory SHAWNA RUMSCHLAG [facility] Start: 05-06-2023 End: 05-06-2023 Subsequent hospital visit by physician Ro[facility] Alt[facility]irano [facility] Comment on above: Arrived Start: 05-05-2023 End: 05-05-2023 ambulatory SHAWNA RUMSCHLAG [facility] Start: 04-30-2023 Emery Fulton RN [facility] Start: 04-28-2023 End: 04-28-2023 ambulatory GAURAV SELLERS [facility] Start: 04-28-2023 End: 04-28-2023 Office outpatient visit 25 minutes Gaurav Sellers PA Work Phone: [facility] Comment on above: 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 (Primary Dx) Start: 04-21-2023 End: 04-21-2023 [facility] Start: 04-20-2023 End: 04-20-2023 Emergency department patient visit [facility] ED Comment on above: Closed head injury, initial encounter (Primary Dx); Fall due to slipping on ice or snow, initial encounter; Acute cervical myofascial strain, initial encounter Start: 04-16-2023 ambulatory Myrtleclaudia Cerna Facility: [facility] Start: 04-07-2023 End: 04-07-2023 ambulatory [facility] Start: 03-31-2023 Refill Patricia Clay RN [facility] Start: 03-27-2023 End: 03-27-2023 ambulatory PETE SILVER [facility] Start: 03-24-2023 End: 03-24-2023 ambulatory [facility] Start: 03-19-2023 End: 03-19-2023 ambulatory GABY AGUILARDAREN Not Available Start: 03-18-2023 Telephone encounter Jan Peterson [facility] Start: 03-18-2023 End: 03-18-2023 ambulatory NON STAFF [facility] Building Maintenance Other Start: 03-18-2023 Non-patient / Non-visit MD Yo Blank Work Phone: [facility] Gastroenterology Work Phone: Start: 03-17-2023 End: 03-17-2023 ambulatory Jan Garg Other el? Other Start: 03-17-2023 Telephone encounter Jan Peterson [facility] Start: 03-16-2023 Encounter for genera l adult medical examination without abnormal findings [employer] [employer] [facility] Start: 03-16-2023 End: 03-16-2023 ambulatory RORY DRIVER [facility] Start: 03-16-2023 End: 03-16-2023 ambulatory LULY ENGLISH Not Available Start: 03-10-2023 End: 03-10-2023 ambulatory SHAWNA [facility] Start: 03-10-2023 End: 03-10-2023 Subsequent hospital visit by physician Tamar Silveira PT [facility] Physical Therapy Comment on above: Arrived Start: 03-05-2023 (FCCCWMNF/U) Weight Management f/u Gayathri [facility] Start: 03-05-2023 End: 03-05-2023 ambulatory Shawna Sofianchaider [facility] Building Maintenance Other Start: 03-05-2023 Registered Recurring MD Monserrat Blank Work Phone: [facility] Work Phone: Start: 03-02-2023 End: 03-02-2023 Emergency department patient visit Sil Sullivan DO Work Phone: [facility] ED Comment on above: Constipation, unspec ified constipation type (Primary Dx) Start: 02-26-2023 End: 02-26-2023 ambulatory Jan Garg Other el? Other Start: 02-26-2023 Telephone encounter Jan Peterson [facility] Start: 02-20-2023 Telephone encounter Argenis Storm RN [facility] Comment on above: Medication, DME Start: 02-18-2023 End: 02-18-2023 ambulatory Jan Garg Other el? Other Start: 02-18-2023 Telephone encounter Jan Peterson [facility] Start: 02-10-2023 Telephone encounter Margaux Olea [facility] Start: 02-05-2023 End: 02-05-2023 ambulatory Jan Garg Other el? Other Start: 02-05-2023 Office outpatient visit 15 minutes aJn Garg [facility] Start: 01-15-2023 [facility] Weight Management f/u Gayathri Scally [facility] Start: 01-15-2023 End: 01-15-2023 ambulatory Gayathri Scally Other el? Other Start: 01-07-2023 End: 01-07-2023 ambulatory Jan Garg Other el? 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 Other Start: 07-29-2022 [facility] Weight Management f/u Gayathri Brooklynly [facility] Start: 07-29-2022 End: 07-29-2022 ambulatory Gayathri Brooklynly Other el? Other Start: 05-20-2022 [facility] Weight Management f/u Gayathri Brooklynly [facility] Start: 05-20-2022 End: 05-20-2022 ambulatory Gayathri Scally Other el? Other Start: 05-19-2022 End: 05-19-[address] ALICIA PRESTON . Facility:[facility] Start: 05-07-2022 End: 05-08-[address] DOCTOR ARREOLA Facility:[facility] Start: 04-09-2022 End: 04-09-2022 ambulatory Gayathri Adams Other el? Other Start: 04-09-2022 Telephone encounter Gayathri Adams [facility] Start: 04-08-2022 ([facility] WMNI) WMN Initial Provider Tamar Sosa [facility] Start: 04-08-2022 [facility] Weight Management f/u Gayathrikasia Adams [facility] Start: 04-08-2022 End: 04-08-2022 ambulatory Tamar Fitt Other el? Other Start: 02-26-2022 End: 02-26-2022 ambulatory Tamar Santiagot Other el? Other Start: 02-26-2022 IBT FOR OBESITY GROU P 2-10 30M Tamarsruthi Sosa [facility] Start: 02-25-2022 [facility] Weight Management f/u Gayathrikasia Adams [facility] Start: 02-25-2022 End: 02-25-2022 ambulatory Gayathri Adams Other el? Other Start: 02-17-2022 End: 02-18-2022 ambulatory RORY DRIVER Facility:[facility] Start: 01-29-2022 End: 01-30-2022 ambulatory JOY Reis [facility] Facility:[facility] Start: 01-14-2022 [facility] Weight Management f/u Gayathri Adams [facility] Start: 01-14-2022 End: 01-14-2022 ambulatory Gayathri Adams Other el? Other Start: 12-05-2021 End: 12-05-2021 ambulatory Gayathri Adams Other el? Other Start: 12-05-2021 Telephone encounter Gayathri [facility] Start: 12-04-2021 End: 12-04-2021 ambulatory Gayathri Adams Other el? Other Start: 12-04-2021 Nutrition therapy Gayathri gruber [facility] Start: 10-29-2021 End: 10-29-2021 ambulatory Yo Blank Other el? Other Start: 10-29-2021 Patient encounter procedure Yo Blank [facility] Gastroenterology Start: 10-22-2021 End: 10-22-2021 Emergency department patient visit Shawna Luis Enrique MARQUEZ Work Phone: [facility] ED Comment on above: Acute diffuse otitis externa of left ear (Primary Dx) Start: 10-11-2021 End: 10-12-2021 Emergency department patient visit Daniel Adkins MD Work Phone: [facility] ED Comment on above: Pilonidal cyst (Prim romero Dx) Start: 11-21-2016 End: 11-26-2016 Ambulatory Juan Ramon [facility] Facility:[facility] Procedures Date Procedure Procedure Detail Performing Clinician Start: 05-25-2023 Microscopic observat ion [Identifier] in Cervix by Cyto stain Deepika Robledo MD Work Phone: Start: 04-20-2023 Ct cervical spine w/ o contrast material Precious Urbina [employer] - [employer] Work Phone: Start: 04-20-2023 Ct head/brain w/o co ntrast material Precious Ubrina [employer] Work Phone: Start: 05-02-2022 Microalbumin [Mass/v olume] in Urine by Test strip Patricia Clay RN Start: 05-02-2020 Adult depression scr eening assessment Argenis Storm RN Start: 08-30-2016 Cholecystectomy YUE PARISH Start: 01-03-2013 nasal surgery YUE ALVARENGA RS Tonsillectomy YUE GRANADO Plan of Treatment Date Care Activity Detail Author Start: 05-24-2026 Screening for malignant neoplasm of cervix Pap Smear [facility] Start: 03-16-2025 Screening for malignant neoplasm of breast Breast cancer screen [facility] Start: 06-01-2024 Adult BMI Screening Adult BMI Screen ing [facility] Start: 04-28-2024 Adult BMI Screening Adult BMI Screen ing [facility] Start: 04-28-2024 Tobacco Screening Tobacco Screening [facility] Start: 03-16-2024 Adult BMI Screening Adult BMI Screen ing [facility] Start: 01-30-2024 Adult BMI Screening Adult BMI Screen ing [facility] Start: 01-30-2024 Tobacco Screening Tobacco Screening [facility] Start: 11-01-2023 Influenza vaccination Influenza Vacc ine [facility] Start: 10-08-2023 End: 10-08-2023 Patient encounter procedure 10/08/2023 9:00 AM EDT Office Visit [facility] Plastic [facility] Re[facility]ive Surgery [address] [facility] [address] [place] [address] Dwayne Khoury MD [address], [address] [place] [address] [facility] Start: 10-01-2023 Influenza vaccination Flu vaccine (# 1) [facility] Start: 09-01-2023 End: 09-01-2023 Patient encounter procedure 09/01/2023 10:30 AM EDT [facility] [address] [place] [phone] Osito Rowan Physical Therapy Start: 08-26-2023 End: 08-26-2023 Patient encounter procedure 08/26/2023 2:30 PM EDT Appointment [facility] Physical Therapy [address] [place] [phone] Kofi Villegas, PT [facility] Physical Therapy Start: 08-18-2023 End: 08-18-2023 Patient encounter procedure 08/18/2023 9:45 AM EDT Appointment [facility] Physical Therapy [address] [place] [phone] Osito Rowan [facility] Physical Therapy Start: 08-11-2023 End: 08-11-2023 Patient encounter procedure 08/11/2023 1:15 PM EDT Appointment [facility] Physical Therapy [address] [place] [phone] Jan Olmstead, PT DRY NEEDLING [facility] Physical Therapy Comment on above: DRY NEEDLING Start: 08-04-2023 End: 08-04-2023 Patient encounter procedure 08/04/2023 4:15 PM EDT Appointment [facility] Physical Therapy [address] [place] [phone] Osito Rowan [facility] Physical Therapy Start: 06-03-2023 End: 06-03-2023 Patient encounter procedure 06/03/2023 3:30 PM EDT Appointment [facility] Physical Therapy [address] [place] [phone] Osito Rowan [facility] Physical Therapy Start: 06-02-2023 End: 06-02-2023 Patient encounter procedure [facility] Physical Therapy Comment on above: DRY NEEDLING- jd gibson coordinates with son's appt Start: 05-23-2023 Hepatitis B vaccine (3 of 3 - Hep B Twinrix 3-dose series) Hepatitis B vaccine (3 of 3 - Hep B Twinrix 3-dose series) [facility] Start: 05-20-2023 End: 05-20-2023 Patient encounter procedure 05/20/2023 3:15 PM EDT Appointment [facility] Physical Therapy [address] [place] [phone] Rojas Altamirano PTA [facility] Physical Therapy Start: 05-19-2023 End: 05-19-2023 Patient encounter procedure 05/19/2023 12:45 PM EDT Appointment [facility] Physical Therapy [address] [place] [phone] Rebecca Skinner, PT DRY NEEDLING- dont move coordinates with son's apptDRY NEEDLING [facility] Physical Therapy Comment on above: DRY NEEDLING- dont m ove coordinates with son's apptDRY NEEDLING Start: 05-05-2023 End: 05-05-2023 Patient encounter procedure [facility] Physical Therapy Comment on above: DRY NEEDLING DRY NEEDLING- dont m ove coordinates with son's appt Start: 05-03-2023 Urine screening for protein Urine Microalbumin [facility] Start: 04-28-2023 End: 04-28-2023 Patient encounter procedure 04/28/2023 10:45 AM EST Office Visit [facility] [address] [place] [phone] Gaurav Sellers PA [address] [place], [place] [phone] [facility] Start: 04-21-2023 End: 04-21-2023 Patient encounter procedure [facility] Physical Therapy Comment on above: DRY NEEDLING DRY NEEDLING- dont m ove coordinates with son's appt Start: 04-07-2023 End: 04-07-2023 Patient encounter procedure 04/07/2023 2:15 PM EST Appointment [facility] Physical Therapy [address] [place] [address] Rebecca Skinner, [place] DRY NEEDLING [facility] Physical Therapy Comment on above: DRY NEEDLING Start: 03-27-2023 End: 03-27-2023 Admission to same day surgery center 03/27/2023 1:27 PM EST - 03/27/2023 1:33 PM EST Surgery [facility] - Pain Procedures [address] [place] [phone] Pete Silver MD [address] [place], [place] [phone] INJECTION BLOCK SACROILIAC JOINT [84556 (CPT )] [facility] - Pain Procedures Comment on above: INJECTION BLOCK SACR OILIAC JOINT [47400 (CPT )] Start: 03-27-2023 End: 03-27-2023 Inject si joint arthrgrphy&/anes/ster oid w/monika INJECTION BLOCK SACROILIAC JOINT Disorder of sacrum 03/27/2023 1:27 PM EST [facility] Start: 03-27-2023 Subsequent hospital visit by physician 03/27/2023 1:27 PM EST Hospital Encounter [facility] - Pain Procedures [address] [place] [address] Pete Silver MD [address] [address] [facility] Pain Procedures Start: 03-24-2023 End: 03-24-2023 Patient encounter procedure 03/24/2023 2:15 PM EST Appointment [facility] Physical Therapy [address] [place] [phone] Rebecca Skinner, PT DRY NEEDLING [facility] Physical Therapy Comment on above: DRY NEEDLING Start: 03-19-2023 [facility] Start: 03-16-2023 End: 03-16-2023 Patient encounter procedure 03/16/2023 11:45 AM EST Appointment [facility] - Mammogram DEXA [address] [address] [facility] Mammogram DEXA Start: 03-10-2023 End: 03-10-2023 Patient encounter procedure 03/10/2023 2:30 PM EST Appointment [facility] Physical Therapy [address] [place] [phone] Rebecca Skinner, PT [facility] Physical Therapy Start: 09-30-2022 Influenza vaccination Flu vaccine (# 1) [facility] Start: 10-31-2021 Influenza vaccination Flu vaccine (# 1) [facility] Start: 09-03-2021 DTaP,Tdap and Td Vaccines (1 - Tdap) DTaP,Tdap and Td Vaccines (1 - Tdap) [facility] Start: 09-03-2021 DTaP/Tdap/Td vaccine (1 - Tdap) DTaP/Tdap/Td vaccine (1 - Tdap) [facility] Start: 05-02-2021 [facility]: 2020 [facility] panel [facility] Start: 01-04-2020 Diabetic foot examination Diabetic Foot Exam [facility] Start: 09-25-2015 Diabetes screen Diabetes screen [facility] Start: 2010 Screening for malignant neoplasm of cervix [facility] Start: 2001 Screening for malignant neoplasm of cervix Pap smear [facility] Start: 09-25-1999 DTaP/Tdap/Td vaccine (1 - Tdap) DTaP/Tdap/Td vaccine (1 - Tdap) [facility] Start: 1998 Adult BMI Follow Up Plan Adult BMI Follow Up Plan [facility] Start: 1998 Hepatitis C screening Hepatitis C sc reen [facility] Start: 09-25-1995 HIV screening HIV screen [facility] Start: 1992 Depression Screen Depression Screen [facility] Start: 1992 Depression Screening Depression Scre [facility] Start: 1981 Varicella vaccine (1 of 2 - 2-dose childhood series) Varicella vaccine (1 of 2 - 2-dose childhood series) [facility] Start: 03-27-1981 COVID-19 Vaccine (#1) COVID-19 Vacci ne (#1) [facility] Start: 1980 Glaucoma screening Diabetic Op hthalmology Exam [facility] Start: 1980 Hepatitis B vaccine (1 of 3 - 3-dose series) Hepatitis B vaccine (1 of 3 - 3-dose series) [facility] Inject si joint arthrgrphy&/anes/ster oid w/monika INJECTION BLOCK SACROILIAC JOINT Disorder of sacrum [facility] Njx dx/ther agt pvrt facet jt lmbr/sac 1 level INJECTION BLOCK NERVE MEDIAL BRANCH Lumbosacral spondylosis without myelopathy [facility] Immunizations Immunization Date Immunization Notes Care Provider Fa cility 12-22-2022 influenza virus vaccine, unspecified formulation Deepika Robledo MD Work Phone: [facility] 12-19-2018 influenza, injectabl e, quadrivalent, preservative free Argenis Storm RN [facility] 12-02-2017 influenza, injectabl e, quadrivalent, preservative free Argenis Storm RN [facility] 12-02-2017 pneumococcal conjuga te vaccine, 13 valent Argenis Storm RN [facility] 10-10-2016 influenza virus vaccine, unspecified formulation Argenis Storm RN [facility] 12-19-2013 influenza virus vaccine, live, attenuated, for intranasal use Argenis Storm RN [facility] 12-03-2012 influenza virus vaccine, whole virus Argenis Storm RN [facility] 12-29-2011 influenza virus vaccine, whole virus Argenis Storm RN [facility] 12-23-2010 influenza virus vaccine, whole virus Argenis Storm RN [facility] 12-18-2008 influenza virus vaccine, whole virus Argenis Storm RN [facility] Payers Date Payer Category Payer Self-pay [id number] 2002 Medicaid [employer] [id number] 2002-Present [phone] [place] [id number] [id number] 1980 Unknown [id number] 2..840.1.600211.3.579.2.593 1980 Unknown [id number] 2..840.1.295431.3.579.2.593 1980 Unknown [id number] 2..840.1.986726.3.579.2.593 1980 Unknown [id number] 2.16.840.1.287408.3.579.2.593 1980 Unknown [id number] 2.16.840.1.134326.3.579.2.727 1980 Unknown [id number] 2.16.840.1.755856.3.579.2.1285 1980 Unknown [id number] 2.16.840.1.043712.3.579.2.1285 1980 Unknown [id number] 2.16.840.1.674956.3.579.2.1258 1980 Unknown [id number] 2.16.840.1.322998.3.579.2.1258 1980 Unknown [id number] 2.16.840.1.108002.3.579.2.1258 1980 Unknown [id number] 2.16840.1.486954.3.579.2.1258 1980 Unknown [id number] 2.16.840.1.174743.3.579.2.1285 1980 Unknown [id number] 2.16.840.1.423027.3.579.2.1285 1980 Unknown [id number] 2.16.840.1.159795.3.579.2.1285 1980 Unknown [id number] 2.16840.1.166918.3.579.2.1285 1980 Unknown [id number] 2.16.840.1.683852.3.579.2.1285 1980 Unknown [id number] 2.16.840.1.229550.3.579.2.1285 1980 Unknown [id number] 2.16.840.1.490114.3.579.2. 1980 Unknown [id number] 2.16.840.1.667604.3.579.2. 1980 Unknown [id number] 2.16.840.1.812987.3.579.2.173 1980 Unknown [id number] 2.16.840.1.929610.3.579.2. 1980 Unknown [id number] 2.16.840.1.438939.3.579.2. 1980 Unknown [id number] 2.16.840.1.433533.3.579.2. 1980 Unknown [id number] 2.16.840.1.700667.3.579.2. 1980 Unknown [id number] 2.16840.1.456935.3.579.2. 1980 Unknown [id number] 2.16840.1.439826.3.579.2. 1980 Unknown [id number] 2.840.1.156746.3.579.2. 1980 Unknown [id number] 2.840.1.881482.3.579.2. 1980 Unknown [id number] 2.840.1.193382.3.579.2. 1980 Unknown [id number] 2.840.1.951735.3.579.2. 1980 Unknown [id number] 2.840.1.507694.3.579.2. 1980 Unknown [id number] 2.840.1.808201.3.579.2. 1980 Unknown [id number] 2.840.1.869144.3.579.2. 1980 Unknown [id number] 2.16840.1.840352.3.579.2. 1980 Unknown [id number] 2.16840.1.249685.3.579.2. 1980 Unknown [id number] 2.16840.1.686033.3.579.2.173 1980 Unknown [id number] 2.16.840.1.254808.3.579.2.173 1980 Unknown [id number] 2.16.840.1.377269.3.579.2. 1980 Unknown [id number] 2.16.840.1.971752.3.579.2. 1980 Unknown [id number] 2.16.840.1.703570.3.579.2. 1980 Unknown [id number] 2.16.840.1.263154.3.579.2. 1980 Unknown [id number] 2.16.840.1.696292.3.579.2. 1980 Unknown [id number] 2.16840.1.421486.3.579.2. 1980 Unknown [id number] 2.16840.1.537575.3.579.2. 1980 Unknown [id number] 2.16840.1.700115.3.579.2. 1980 Unknown [id number] 2.16840.1.986292.3.579.2. 1980 Unknown [id number] 2.16840.1.018557.3.579.2.1285 1980 Unknown [id number] 2.840.1.607899.3.579.2.1286 1959 Medicaid [id number] Unknown [id number] 2.16840.1.103222.3.579.2.531 Unknown [id number] 216840.1.472180.3.579.2.531 Unknown [id number] 2.16840.1.221467.3.579.2.531 Social History Date Type Detail Facility Start: 09-02-2017 End: 05-21-2023 Tobacco smoking status NCIS Never smoked tobacco [facility] Start: 09-02-2017 End: 01-28-2022 Tobacco use and exposure Smokeless tobacco non-user [employer] Phone: Start: 10-11-2021 End: 04-28-2023 Alcohol intake Current non-drinker of alcohol (finding) [employer] Phone: Start: 1980 Sex Assigned At Not on file [facility] Phone: Start: 10-01-2021 End: 10-22-2021 Exposure to SARS-CoV-2 (event) Not sure [employer] Phone: Start: 03-13-2020 End: 10-11-2021 Sex Assigned At [facility] Tobacco smoking status Never [facility] Start: 03-13-2020 End: 10-11-2021 History of Social function [facility] Start: 1980 Sex Assigned At Female F [facility] Medical Equipment Procedure Code Equipment Code Equipment Origin al Text Equipment Identifier Dates [place] Sut 5.5mm 2 Ft Crkscr Fbrwr Shldr 3 Pk 14.7mm Strl Ea=Bill-Only Rpl [id number] Start: 05-15-2022 Use to test BLOO D SUGAR TWICE DAILY [id number] Start: 05-28-2020 Use to test BLOO D SUGAR TWICE DAILY, Diagnosis: E11.9 [id number] Start: 03-08-2020 Clinical Notes 10-22-2021 to 09-22-2023 [...] her next appt. 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 Minutes Tracking: Time In: 1430 Time Out: 1500 Minutes: 30 Timed Code Treatment Minutes: 29 Minutes Kofi Villegas, PT, DPT Date: 08/26/2023 documented in this encounter [facility] 08-21-2023 History of Presen t illness Narrative Physical Therapy Disregard the no show note on 08/17. This was added in error. [facility] Outpatient Physical Therapy Daily Note Patient: Karma Candelaria : 1980 CSN #: [id number] Referring Physician: Shawna Mcfadden DO Date: 08/21/2023 Treatment Diagnosis: pain in cervical and LB Onset Date: 02/18/23 PT Insurance Information: [employer] Total # of Visits Approved: 24 Per [...] the cervical area and her LB area. 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 Prison Goal 2: Pt will be able to perform full cervical ROM without increase complaints of baseline pain with initiation to demonstrate imporved control of pain. 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 Minutes Tracking: Time In: 1045 Time Out: 1116 Minutes: 31 Timed Code Treatment Minutes: 29 Minutes Jan Olmstead PT, DPT Date: 08/21/2023 documented in this encounter [facility] 08-11-2023 History of Presen t illness Narrative [facility] Outpatient Physical Therapy Daily Note Patient: Karma Candelaria : 1980 [facility] #: [id number] Referring Physician: Shawna Mcfadden DO Date: 08/11/2023 Diagnosis: Z76.89 - Persons encountering health services in other specified circumstances Treatment Diagnosis: pain in cervical and LB Onset Date: 02/18/23 PT Insurance Information: [employer] Total # of Visits Approved: 24 Per [...] the cervical area and her LB area. 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 Prison Goal 3: Pt will report 40% improvement in overall complaints and improved tolerance to her job tasks. 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 Minutes Tracking: Time In: 1330 Time Out: 1400 Minutes: 30 Timed Code Treatment Minutes: 28 Minutes Jan Olmstead PT, DPT Date: 08/11/2023 documented in this encounter [facility] 07-14-2023 History of Presen t illness Narrative Physical Therapy [facility] Inpatient/Observation/Outpatient Rehabilitation Date: 07/14/2023 Patient Name: [...] does not require skilled services due to: Therapist/Civil Lawyer will attempt to see this patient, at our earliest opportunity. Filomena Raphael Date: 07/14/2023 documented in this encounter [facility] 06-02-2023 History of Presen t illness [...] Year discontinued? N/a Are you of Ashkenazi Religion decent? no Family history of cancer: relation [...] or lymphadenopathy. I reviewed notes from her stamp presser dated 05/05/2023, imaging including mammogram and ultrasound dated 03/16/2023 and 03/25/2023, history form dated 06/02/2023. Past Medical History Past Medical History: Diagnosis Date Anxiety Asthma Back pain Bipolar 1 disorder (CMS-HCC) Breast disorder enlarged lymph nodes in both breast Carpal tunnel syndrome Chronic pain disorder Deep vein thrombosis (CMS-HCC) blood clot in left arm Dental disease [...] night 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 ([facility]) 11/10/2017 Visual impairment Past Surgical History Past Surgical History: Procedure Laterality Date ANKLE SURGERY Left x2 ARTHROSCOPY SHOULDER WITH ROTATOR CUFF REPAIR Right 05/15/2022 Performed by Chepe Ingram MD at [facility] DEBRIDEMENT Right 05/15/2022 Performed by Chepe Ingram MD at [facility] DECOMPRESSION OF SUBACROMIAL SPACE WITH PARTIAL ACROMIOPLASTY Right 05/15/2022 Performed by Chepe Ingram MD at [facility] INJECTION BLOCK EPIDURAL STEROID LUMBAR/SACRAL: L 4/5 WU N/A 04/22/2021 Performed by Pete Silver MD at [facility] INJECTION BLOCK SACROILIAC JOINT Left 03/27/2023 Performed by Pete Silver MD at [facility] CERVICAL OR THORACIC EPIDURAL BLOCK WITH STEROIDS: C67 WU N/A 01/29/2018 Performed by Pete Silver MD at [facility] LUMBAR OR SACRAL EPIDURAL BLOCK WITH STEROIDS: L45 WU N/A 10/15/2018 Performed by Pete Silver MD at [facility] MEDIAL BRANCH NERVE BLOCK: bilat L45 51 Bilateral 07/30/2018 Performed by Pete Silver MD at [facility] SPINE TRANSFORAMINAL: left C 5,6 Nroot Left 01/09/2023 Performed by Pete Silver MD at [facility] LAPAROSCOPIC CHOLECYSTECTOMY N/A 09/16/2016 Performed by Juan Ramon Jean MD at [facility] EXPRESS LIVER BIOPSY EMA PROCEDURE Right 05/15/2022 Performed by Chepe Ingram MD at [facility] NASAL SURGERY REPAIR HERNIA UMBILICAL 09/16/2016 Performed by Juan Ramon Jean MD at [facility] EXPRESS TONSILLECTOMY Family History Family History Problem Relation [...] 5 blood-glucose meter (TRUE METRIX GLUCOSE METER) mis, use to test BLOOD SUGAR TWICE DAILY, [...] , Rfl: lancets (UNILET LANCET) 28 gauge [facility], Use to test BLOOD SUGAR TWICE DAILY, [...] on 04/28/2023), Disp: 30 tablet, Rfl: 0 besbqhzj-ifzj-WW-calcium &mins (THERAGRAN-M) 9 mg iron-400 mcg tablet, [...] a bilateral screening mammogram on 03/16/2023 through [facility]. Her breast tissue is almost entirely fatty. There was a 1 cm mass in the posterior upper-outer right breast 17 cm from the nipple. They thought this was likely a lymph node but recommended that she return for additional imaging. She had the imaging done in [place]. They did a right diagnostic mammogram and [...] with any concerns. documented in this encounter [facility] 05-12-2023 Miscellaneous Notes Spoke with patient and scheduled with Dr. Robledo 06/01. Patient voiced understanding of appointment details. Patient was offered sooner dates but declined per her availability. documented in this encounter [facility] 05-12-2023 Telephone encounter Note Spoke with patient and scheduled with Dr. Robledo 06/01. Patient voiced understanding of appointment details. Patient was offered sooner dates but declined per her availability. [facility] 04-30-2023 Miscellaneous Notes Last Office Visit: 04/28/2023 Next Office Visit: Visit date not found Last Urine Drug Screen: No results found for: BENZOSCRN OARRS appropriate documented in this encounter [facility] 04-30-2023 Telephone encounter Note Last Office Visit: 04/28/2023 Next Office Visit: Visit date not found Last Urine Drug Screen: No results found for: BENZOSCRN OARRS appropriate [facility] 04-28-2023 History of Presen t illness Narrative [facility] [address] [place] [address] Patient: Karma Banegas Sex: female : 1980 [...] spine (09/2022 last visit for 11/05/22) at [facility] with no relief Back: 10/15/18 [...] Anxiety Asthma Back pain Bipolar 1 disorder ([facility]) Breast disorder enlarged lymph nodes in both breast Carpal tunnel syndrome Chronic pain disorder Deep vein thrombosis ([facility]) blood clot in left arm Dental disease [...] night 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 ([facility]) 11/10/2017 Visual impairment Past Surgical History: Procedure Laterality Date ANKLE SURGERY Left x2 ARTHROSCOPY SHOULDER WITH ROTATOR CUFF REPAIR Right 05/15/2022 Performed by Chepe Ingram MD at [facility] DEBRIDEMENT Right 05/15/2022 Performed by Chepe Ingram MD at [facility] DECOMPRESSION OF SUBACROMIAL SPACE WITH PARTIAL ACROMIOPLASTY Right 05/15/2022 Performed by Chepe Ingram MD at [facility] INJECTION BLOCK EPIDURAL STEROID LUMBAR/SACRAL: L 4/5 WU N/A 04/22/2021 Performed by Pete Silver MD at [facility] INJECTION BLOCK SACROILIAC JOINT Left 03/27/2023 Performed by Pete Silver MD at [facility] CERVICAL OR THORACIC EPIDURAL BLOCK WITH STEROIDS: C67 WU N/A 01/29/2018 Performed by Pete Silver MD at [facility] LUMBAR OR SACRAL EPIDURAL BLOCK WITH STEROIDS: L45 WU N/A 10/15/2018 Performed by Pete Silver MD at [facility] MEDIAL BRANCH NERVE BLOCK: bilat L45 51 Bilateral 07/30/2018 Performed by Pete Silver MD at [facility] INJECTION SPINE TRANSFORAMINAL: left C 5,6 Nroot Left 01/09/2023 Performed by Pete Silver MD at [facility] LAPAROSCOPIC CHOLECYSTECTOMY N/A 09/16/2016 Performed by Juan Ramon Jean MD at [facility] EXPRESS LIVER BIOPSY EMA PROCEDURE Right 05/15/2022 Performed by Chepe Ingram MD at [facility] NASAL SURGERY REPAIR HERNIA UMBILICAL 09/16/2016 Performed by Juan Ramon Jean MD at [facility] EXPRESS TONSILLECTOMY Allergies Allergen Reactions Metformin Severe hypoglycemia [...] it is both accurate and complete. Peg Cornad CNA 04/28/23 1207 UMESH Hodge 04/30/23 1141 documented in this encounter [facility] 04-28-2023 Instructions Peg Conrad CNA - 04/28/2023 [...] nearest emergency room. documented in this encounter [facility] 04-20-2023 Hospital Discharg e instructions Precious Urbina APRN - CNP - 04/20/2023 1:50 PM EST Increase fluid Tylenol Motrin for cough Continue home medications The following attachments cannot be sent through Care Everywhere.Head Injury: Closed: General Info (Malagasy)Cervical Strain (Malagasy)documented in this encounter [facility] 03-31-2023 Miscellaneous Notes Patient calls today [...] medications prescribed to someone other than her. Wastewater Design Engineer reiterated this to patient. Patient's pharmacy was confirmed with her. Order pended for review and signature. [facility] encounter Note Patient calls today [...] are prescribed [facility] than [facility] Telephone encounter Note Is she still taking prozac? What dosage? Any other antidepressants? [facility] Telephone encounter Note Call placed to patient to confirm whether or not she is taking Prozac or other antidepressants. Patient states she is taking 40 mg Prozac daily. That is the only antidepressant that she takes. She is prescribed Latuda and Lamictal to treat Bipolar. [facility] 03-31-2023 Telephone encounter Note Can try cymbalta 30mg once daily [facility] 03-31-2023 Telephone encounter Note Call placed to patient to inform her of provider's response. Patient is also educated not to take medications that are prescribed to someone other than her. Patient voices that she is aware that she should not be taking medications prescribed to someone other than her. Wastewater Design Engineer reiterated this to patient. Patient's pharmacy was confirmed with her. Order pended for review and signature. [facility] 03-05-2023 Evaluation note Encounter Date Diagnosis Assessment [...] was counseling done by myself, Rhina ROBERTSON. el? Other 01-01-2024 Hospital Discharge instructions* Discharge Instructions* Sil Sullivan DO - 03/02/2023 7:49 PM EST Please follow-up with your GI doctor, trial enema at home, return to the ER for worsening abdominalpain, inability to pass gas, or nausea, vomiting * Attachments The following attachments cannot be sent through Care Everywhere. * Constipation (Malagasy) [facility] Miscellaneous Notes* Telephone Encounter - Argenis Storm [...] when she was under his care in [place]. She is currently taking Meloxicam that helps [...] She states whatever . [facility] encounter Note* Telephone Encounter - [...] when she was under his care in [place]. She is currently taking Meloxicam that helps [...] add Dr. Silver on the note. PVU. [id number] Telephone encounter Note* Telephone Encounter - Pete Silver MD - 02/20/2023 10:04 AM EST Discussed with nurse, I agree with Fartun's treatment plan going forward. [facility]12-22-2023 Telephone encounter Note* Telephone Encounter - UMESH Hodge - 02/20/2023 10:04 AM EST No Rx for tramadol. I have never written prescription for bra so I would not know how to proceed with anything like that. [facility]12-22-2023 Telephone encounter Note* Telephone Encounter - Argenis Storm RN - 02/20/2023 10:04 AM EST Patient aware of response. She states whatever . [facility]12-20-2023 Evaluation note* Encounter Date Diagnosis Assessment Notes Treatment Notes Treatment Clinical Notes Jan, Constipation, unspecified constipation type (ICD-10 - K59.00) Jan, Constipation (ICD-10 - K59.00) el? Other 12-12-2023 Miscellaneous Notes* Telephone Encounter - [...] and has f/u appt [facility] Tele[facility] encounter Note* Telephone Encounter - [...] is now related to sacroiliac joint. [facility]12-12-2023 Telephone encounter Note* Telephone Encounter - UMESH [...] sufficient reason to deny the current request. [facility] [id number] Telephone encounter Note* Telephone Encounter - Alfredito William - 02/10/2023 8:18 AM EST GOT APPROVAL [employer] [facility] [id number] Telephone encounter Note* Telephone Encounter - Maty Fulton RN - 02/10/2023 8:18 AM EST Pt is scheduled 03/27 for procedure and has f/u appt [facility]12-07-2023 Evaluation note* Encounter Date Diagnosis Assessment Notes [...] R10.9) Jan, Rectal bleed (ICD-10 - K62.5) el? Other 11-16-2023 Evaluation note* Encounter Date Diagnosis [...] was counseling done by myself, Rhina ROBERTSON. el? Other 11-08-2023 Evaluation note* Encounter Date Diagnosis [...] HAVE PATIENT START DOCUSATE 3 CAPSULES DAILY. el? Other 06-29-2023 Evaluation note* Encounter Date Diagnosis Assessment Notes Treatment Notes Treatment Clinical Notes Jul, Obesity (ICD-10 - E66.9) Jul, BMI 34.0-34.9,adult (ICD-10 - Z68.34) Jul, Other Summary of Visi t: (A) discussed continuing to work on small goals until stress decreases and she has the energy to increase goals (B) discussed healhtier choices at [employer]- food blog reviewed (C) reviewed food storage tips for keeping produce fresh longer Patient set the following goals: - NEW: continue to choose sugar free beverages- not reviewed el? Other 05-30-2023 Evaluation note* Encounter Date Diagnosis [...] was counseling done by myself, Rhina ROBERTSON. el? Other 03-21-2023 Evaluation note* Encounter Date Diagnosis [...] visit was counseling done by myself, Rhina Adams CABLE ENGINEER-Terrell. el? Other 02-07-2023 Evaluation note* Encounter Date Diagnosis [...] set the following goals: not reviewed today el? Other 02-07-2023 Evaluation note* Encounter Date Diagnosis [...] was counseling done by myself, Rhina ROBERTSON. el? Other 12-28-2022 Evaluation note* Encounter Date Diagnosis [...] patient set personal goal using given handout. el? Other 12-27-2022 Evaluation note* Encounter Date Diagnosis [...] was counseling done by myself, Rhina ROBERTSON. el? Other 12-01-2022 NotePROCEDURE: XR ANKLE LT MIN [...] Electronically authenticated by: ONEL CLARK Date: 2022-01-29 22:30[facility]12-01-2022 NotePROCEDURE: XR ANKLE LT MIN 3 [...] Electronically authenticated by: ONEL CLARK Date: 2022-01-29 22:30[facility]11-15-2022 Evaluation note* Encounter Date Diagnosis Assessment [...] was counseling done by myself, Rhina ROBERTSON. el? Other 10-05-2022 Evaluation note* Encounter Date Diagnosis [...] was counseling done by myself, Rhina ROBERTSON. [employer] Other 08-30-2022 Evaluation note* Encounter Date Diagnosis Assessment Notes Treatment Notes Treatment Clinical Notes Sep, Fatty liver (ICD-10 - K76.0) ENCOURAGED WEIGHT LOSS Sep, Obesity (BMI 30-39.9) (ICD-10 - E66.9) el? Other 08-23-2022 Hospital Discharge instructions* Discharge Instructions* Stanley Almonte PA-C - 10/22/2021 2:03 PM EDT Follow-up with primary care doctor 7 to 10 days for reevaluation. Take Motrin 800 mg as directed with food. Start eardrops left ear as directed. Promptly return to emergency department for new, changing or worsening of symptoms or other concerns. [facility] [employer] Work Phone: evaluation + Plan note No data available for this section [facility]* Diagnosis Pilonidal cyst- Primary Pilonidal cyst without mention of abscess documented in this encounter [facility] [employer] Work Phone: evaluation note* Diagnosis Acute diffuse otitis externa of left ear- Primary documented in this encounter [facility] [employer] Work Phone: evaluation noteNo InformationNort [employer] Other Evaluation note* Diagnosis Constipation, unspecified constipation type- Primary documented in this encounter [facility] [employer] [facility] [place] noteNo assessment information available [facility] Work Phone: Evaluation note* Diagnosis Closed head injury, initial encounter- Primary Fall due to slipping on ice or snow, initial encounter Acute cervical myofascial strain, initial encounter documented in this [facility] [place] [facility]* Diagnosis Lumbosacral spondylosis without myelopathy- Primary [facility] Diagnosis Mass of upper outer quadrant of right breast- Primary Abnormal mammogram Abnormal mammogram, unspecified Symptomatic mammary hypertrophy [facility] Diagnosis Onset Date Resolution Status ADHD acute BMI 36.0-36.9,adult acute Constipation acute Diabetes mellitus with hyperglycemia acute Fatty liver acute IBS (irritable bowel syndrome) acute Obesity acute Shifting sleep-work schedule, affecting sleep acute Constipation acute Elevated liver function tests acute Fatty liver acute IBS (irritable bowel syndrome) acute [facility] Work Phone: Hisnqoq general Narrative - Reported* Type Description Date Medical History PTSD Medical History DIVERTICULITOUS Surgical History 2 BACK INJECTIONS 2014 Surgical History LEFT ANKLE 2002 Surgical History CHOLECYSTECTOMY Hospitalization History SEE ABOVE el? Other Hiscdwx general Narrative - Reported* Type Description Date Medical History PTSD Medical History DIVERTICULITOUS Medical History bipolar Medical History ADHD Surgical History 2 BACK INJECTIONS 2014 Surgical History LEFT ANKLE 2002 Surgical History CHOLECYSTECTOMY Surgical History nasal surgery Hospitalization History SEE ABOVE el? Other Hiskmpx general Narrative - Reported* Type Description Date Medical History PTSD Medical History DIVERTICULITOUS Medical History bipolar Medical History ADHD Surgical History 2 BACK INJECTIONS 2014 Surgical History LEFT ANKLE 2002 Surgical History CHOLECYSTECTOMY Surgical History nasal surgery Surgical History right Rotator surgery 05-15-22 Hospitalization History SEE ABOVE el? Other Hispqus general Narrative - Reported* Type Description Date Medical History PTSD Medical History DIVERTICULITOUS Medical History bipolar Medical History ADHD Medical History rotator cuff tear Surgical History 2 BACK INJECTIONS 2014 Surgical History LEFT ANKLE 2002 Surgical History CHOLECYSTECTOMY Surgical History nasal surgery Surgical History right Rotator surgery 05-15-22 Hospitalization History SEE ABOVE el? Other history general Narrative - Reported* Type Description Date Medical History PTSD Medical History DIVERTICULITOUS Medical History bipolar Medical History ADHD Medical History rotator cuff tear Surgical History 2 BACK INJECTIONS 2014 Surgical History LEFT ANKLE 2002 Surgical History CHOLECYSTECTOMY Surgical History nasal surgery Surgical History right Rotator surgery 05-15-22 Surgical History Neck injections/root burnt 12/31 Hospitalization History SEE ABOVE el? Other Hisrdht general Narrative - Reported* Type Description Date Medical History PTSD Medical History DIVERTICULITOUS Medical History bipolar Medical History ADHD Medical History rotator cuff tear Surgical History 2 BACK INJECTIONS 2014 Surgical History LEFT ANKLE 2001 Surgical History CHOLECYSTECTOMY Surgical History nasal surgery Surgical History right Rotator surgery 05-15-22 Surgical History Neck injections/root burnt 12/31 Hospitalization History SEE ABOVE Hospitalization History [facility] [place]- c onstipation 03-02-2023 el? Other Hospital Discharge instructions* Attachments The following attachments cannot be sent through Care Everywhere. * Pilonidal Abscess (Malagasy) [facility] [employer] [facility] [employer] Work Phone: Hospital Discharge instructions No data available for this section [facility] HospitalInstructionsNot on filedocumented in this encounter [facility]Not on filedocumented in this encounter [facility] System[facility]ructionsNot on filedocumented in this encounter [facility] SystemInstructionsNot on filedocumented in this encounter [facility] SystemInstructionsNot on filedocumented in this encounter [facility] note No data available for this section [facility] HospitalReason for visit Narrative* Consultation (Routine) - Pending Review Specialty Diagnoses / Procedures Referred By Karla t Referred To Contact Breast Surgery Diagnoses Abnormal mammogram Carmen Fisher MD [address] [place] [id number] Ila Trevizo MD [address] [place] [phone] Referral ID Status Reason Start Date Expiration Date V isits Requested Visits Authorized [id number] Pending Review 05/06/2023 05/05/2024 1 1 [facility] Summary Purpose Family History No Family [...] MEDIAL BRANCH: left L45 [address] Gaurav Sellers, UMESH [address] [facility], [address] [place] [address] Referral ID Status Reason Start Date Expiration Date V isits Requested Visits Authorized [id number] Pending Review 04/28/2023 04/27/2024 1 1 Chief [...] section and content) DATE CREATED AUTHOR 08/26/2017 [facility] DATE CREATED AUTHOR AUTHOR'S ORGANIZ ATION 05/30/2022 [facility] DATE CREATED AUTHOR AUTHOR'S ORGANIZ ATION 01/18/2023 Kumar Ribera [facility] DATE CREATED AUTHOR AUTHOR'S ORGANIZ ATION 06/04/2023 [facility] DATE CREATED AUTHOR AUTHOR'S ORGANIZ ATION 08/03/2023 [facility] DATE CREATED AUTHOR AUTHOR'S ORGANIZ ATION 08/15/2023 [facility] EPIC DATE CREATED AUTHOR AUTHOR'S ORGANIZ ATION 10/07/2023 [facility] DATE CREATED AUTHOR AUTHOR'S ORGANIZ ATION 10/07/2023 [facility] DATE CREATED AUTHOR AUTHOR'S ORGANIZ ATION 10/10/2023 [facility] [place] Reason for Visit (unrecogniz ed section and [...] Dispensed Refills Start Date End Da te ywnzmyjv-koesfzzcj-wujjwx ortisone (CORTISPORIN) 3.5-[address]252-[address] 4 drops into the [...] Care Teams (unrecognized sec tion and content) Legal Clerk Relationship Specialty Start Date End Date Shawna Mcfadden DO [address] [place] [address] PCP - General Family Medicine 10/12/21 Legal Clerk Relationship Specialty Start Date End Date Shawna Mcfadden DO [address] [place], [place] [id number] PCP - General Family Medicine 10/12/21 Legal Clerk Relationship Specialty Start Date End Date Shawna Mcfadden DO [address] [place], [place] [id number] PCP - General Family Medicine 10/12/21 Legal Clerk Relationship Specialty Start Date End Date Shawna Mcfadden DO [address] [place] [address] PCP - General Family Medicine 05/02/22 Legal Clerk Relationship Specialty Start Date End Date Shawna Mcfadden DO [address] [place] [address] PCP - General Family Medicine 10/12/21 Legal Clerk Relationship Specialty Start Date End Date Shawna Mcfadden DO [address] [place] [address] PCP - General Family Medicine 05/02/22 Team [...] Care Provider Active Start: March 18, 2023 Legal Clerk Relationship Specialty Start Date End Date Shawna Mcfadden DO [address] [place] [address] PCP - General Family Medicine 05/02/22 Legal Clerk Relationship Specialty Start Date End Date Shawna Mcfadden DO [address] [place] [address] PCP - General Family Medicine 10/12/21 Legal Clerk Relationship Specialty Start Date End Date Shawna Mcfadden DO [address] [place] [address] PCP - General Family Medicine 05/02/22 Legal Clerk Relationship Specialty Start Date End Date Shawna Mcfadden DO [address] [place] [address] PCP - General Family Medicine 10/12/21 Legal Clerk Relationship Specialty Start Date End Date Shawna Mcfadden DO [address] [place] [address] PCP - [facility] 05/02/22 Legal Clerk Relationship Specialty Start Date End Date Shawna Mcfadden DO [address] [place] [address] PCP - [facility] 05/02/22 Team Status: Active Member Role Status Dates Rory Driver [facility] Primary Care Provider Active Team Status: Inactive Member Role Status Dates Gayathri Adams APRN Attending Provider Active Start: May 21, 2023 End: May 21, 2023 Rory Driver [facility] Primary Care Provider Active Start: May 21, 2023 End: May 21, 2023 Team Status: Inactive Member Role Status Dates Jan Garg APRN Attending Provider Active Start: May 21, 2023 End: May 21, 2023 Rory Driver [facility] Primary Care Provider Active Start: May 21, 2023 End: May 21, 2023 Legal Clerk Relationship Specialty Start Date End Date Shawna Mcfadden DO [address] [place] [address] PCP - [facility] Medicine 10/12/21 Goals (unrecognized section and content) [...] BE BASED ON THE PRIMARY CLINICAL RECORDS. [facility] [employer] [facility] provides no warranty or guarantee of the accuracy or completeness of information in this document.
--- NOTE | 2023-10-18 18:11 | XR_ITS ---
The [address] [address] Patient Name: PEE WHITEHEAD MRN: [id number] date: 1980 Sex: F Assigned Patient Location: ER Current Patient Location: Accession/Order Number: [id number] Exam Date: 10/18/2023 18:37 Report Date: 10/18/2023 19:22 At the request of: GAURAV PAULSON Procedure: XR ankle LT min 3V EXAM: XR ankle LT min 3V HISTORY: pain, anterior medial. prior surgery remotely COMPARISON: 12/11/2022, 01/28/2010. TECHNIQUE: AP, oblique, lateral view left ankle. FINDINGS: No soft tissue swelling, no joint effusion. Cortical thickening and metallic densities distal fibula consistent with previous trauma and healed fracture. Alteration in the trabecular pattern distal tibia also appears old likely residual of earlier trauma. There is no cortical break or acute appearing fracture. Normal symmetric mortise. XR/XR ankle LT min 3V IMPRESSION: Chronic abnormality stable from previous without evidence of acute fracture or joint effusion. Electronically authenticated by: ZAC LEO Date: 10/18/2023 19:22
--- NOTE | 2023-10-18 18:13 | ED.LOWEXI1 ---
HPI HPI - Extremity Injury (Lower) General Chief Complaint: Extremity Injury, Lower Stated Complaint: LOWER LEFT EXTREMITY PAIN Time Seen by Provider: 10/18/23 17:48 Source: patient Mode of arrival: Wheelchair Limitations: no limitations History of Present Illness HPI Narrative: Patient is a 43-year-old female who presents to the ER with concerns of left ankle pain. Patient states she was at work, stepping down from a stepstool when she forgot she repositioned it and missed a step. Patient reports rolling her left ankle but was wearing a ankle brace which she wears chronically following a remote ankle surgery many years ago. Patient states she noted it was sore this morning and wanted to get it checked out given her prior surgical history. Patient states she did strike both of her knees, minimal bruising but is already established with orthopedics at [facility] awaiting MRIs on her knees. decllines the need for x-rays on her knees and denies any head or neck injury. Pt is hesitant to receive pain medication, agreeable to tylenol and ice. MD complaint: Reports ankle injury (left ) Injury: Left: ankle Place: Reports work Severity: mild Relieving factors: Reports nothing and other (did not take meloxicam at home. ) Exacerbating factors: Reports nothing Related Data Previous Rx's ?Medication ?Instructions ?Recorded cyclobenzaprine 10 mg tablet 10 mg PO BID PRN muscle spasm #10 10/10/23 tabs diclofenac sodium 75 mg 75 mg PO BID PRN pain #14 tabs 10/10/23 tablet,delayed release Allergies Allergy/AdvReac Type Severity Reaction Status Date / Time cephalexin [From Keflex] Allergy Intermediate Rash Verified 10/18/23 17:49 citalopram [From Celexa] Allergy Intermediate Rash Verified 10/18/23 17:49 metformin Allergy Intermediate Nausea Verified 10/18/23 17:49 Opioid HPI Opioid Management Most Recent Pain and Opioid Data: Last Pain Scale 5 10/18/23 18:24 Last MAR Pain Assessment 10/18/23 18:24 Review of Systems ROS Constitutional Denies: fever, chills or change in weight Eyes Denies: change in vision Ears, nose, mouth, and throat Denies: throat pain or neck pain Cardiovascular Denies: chest pain, palpitations or edema Respiratory Denies: shortness of breath, cough or wheezing Gastrointestinal Denies: abdominal pain, nausea or vomiting Genitourinary Denies: painful urination Musculoskeletal Reports: joint pain (left ankle); Denies: back pain or neck pain Integumentary/Breast Denies: rash Psychiatric Denies: anxiety Exam Narrative Exam Narrative: Vital signs reviewed and nurse's notes. The patient is not hypoxic. General: Alert, no acute distress, patient resting comfortably Skin: warm, intact, no pallor noted Head: Normocephalic, atraumatic Eye: Normal conjunctiva, no exudates Respiratory: No acute distress, lungs CTA Musculoskeletal: No evidence of deformity to the left ankle remote medial and lateral surgical incisions noted, no swelling or bruising. Tenderness to the anterior medial ankle, denies pain along the deltoid ligament.No pain or laxity with anterior Drawer. No lateral ankle joint pain. No proximal fibular pain or pain with syndesmotic compression. She denies pain to the midfoot or fifth metatarsal base. There is no tenderness to the calf or Achilles tendon. Negative Homans. Right leg unremarkable. Patient has mild tender bruising to the bilateral anterior knees with no hematoma formation. Patient straight leg raises without difficulty. Patient reports occasional catching and locking bilateral knee symptoms awaiting MRI. Neurological: alert and orient x4, normal sensory and motor observed. Psychiatric: Cooperative Constitutional Vital Signs, click to edit/add: Last Vital Signs Temp 98.1 F 10/18/23 17:49 Pulse 91 H 10/18/23 17:49 Resp 18 10/18/23 17:49 BP 117/70 10/18/23 17:49 Pulse Ox 97 10/18/23 17:49 O2 Del Method Room Air 10/18/23 17:49 Course Vital Signs Vital signs: Vital Signs Temperature 98.1 F 10/18/23 17:49 Pulse Rate 91 H 10/18/23 17:49 Respiratory Rate 18 10/18/23 17:49 Blood Pressure 117/70 10/18/23 17:49 Pulse Oximetry 97 10/18/23 17:49 Oxygen Delivery Method Room Air 10/18/23 17:49 Temperature 98.1 F 10/18/23 17:49 Pulse Rate 91 H 10/18/23 17:49 Respiratory Rate 18 10/18/23 17:49 Blood Pressure 117/70 10/18/23 17:49 Pulse Oximetry 97 10/18/23 17:49 Oxygen Delivery Method Room Air 10/18/23 17:49 MDM - Extremity Injury (Lower) MDM Narrative Medical decision making narrative: Discussed patient's presentation, she reports most concern for her left ankle with prior surgery after missing a step coming down from a stepladder. Patient reports ongoing workup of bilateral knees, MRIs pending and is established with [facility] orthopedics. Dr. Ingram/tori sees Dr. Yung locally for her ankles. Patient declines to file this injury through Worker's Comp. Patient states she wears an ankle support ASO daily given her past history. She will focus on ice and elevation and contact her metal polisher for ongoing management. Patient aware preliminary result of the x-ray without acute fracture, degenerative changes noted and postsurgical changes from prior ORIF with hardware removal. The patient is to followup with primary care physician in next 2-3 days or to return to the emergency department should any of the signs or symptoms worsen or new symptoms develop. Patient had questions answered. The patient agrees with the following Diagnosis and Treatment plan and the patient will be discharged home. Imaging Data left ankle: Attestation: I personally reviewed and interpreted this imaging study as follows: My impression: No acute fracture, degenerative changes with history of prior surgery, postsurgical changes noted. Discharge Plan Discharge Stand Alone Forms: Portal Instructions Chief Complaint: Extremity Injury, Lower Clinical Impression: Acute left ankle pain Patient Disposition: Home, Self-Care Time of Disposition Decision: 19:06 Condition: Good Prescriptions / Home Meds: No Action cyclobenzaprine 10 mg tablet 10 mg PO BID PRN (Reason: muscle spasm) Qty: 10 0RF diclofenac sodium 75 mg tablet,delayed release (DR/EC) 75 mg PO BID PRN (Reason: pain) Qty: 14 0RF Print Language: Turkish Instructions: Arthralgia (ED) Referrals: Key Andrea, JO ANN [Primary Care Provider] - 1 week Adam Yung DPM [Physician] - As soon as possible
[2023-10-18] MEDS: ACETAMINOPHEN 500 MG TABLET 1000 MG PO (18:24)
== END 2023-10-18 19:17 | disposition home or self-care (01) ==
PROVIDERS: Emergency Provider Emergency Medicine; PCP Nurse Practitioner
DX: M25.572 Pain in left ankle and joints of left foot (principal)
CPT/HCPCS: 73610; 99283

== ENCOUNTER 2023-10-24 04:38 | Emergency (ER) | payer OTHER, SELFPAY ==
[2023-10-24 04:39] VITALS: PULSE 77; TEMP 36.5; O2SAT 100; BMI 36.0
--- NOTE | 2023-10-24 04:41 | CT_ITS ---
[address] [address] Patient Name: PEE WHITEHEAD MRN: [id number] date: 1980 Sex: F Assigned Patient Location: ED.MAIN Current Patient Location: Accession/Order Number: [id number] Exam Date: 10/24/2023 05:50 Report Date: 10/24/2023 06:29 At the request of: JOSÉ MIGUEL GUERRERO Procedure: CT abdomen pelvis w con EXAMINATION: CT abdomen pelvis w con HISTORY: Right sided abdominal pain COMPARISON: CT abdomen pelvis 09/13/2016 TECHNIQUE: Axial, Coronal, and Sagittal images were obtained without and/or with IV contrast as indicated by examination type. Dose reduction techniques were achieved by using automated exposure control and/or adjustment of mA and/or kV according to patient size and/or use of iterative reconstruction technique. FINDINGS: LUNG BASES: No visible pulmonary or pleural disease. LIVER: No enlargement, atrophy, suspicious density, or significant focal lesion. BILIARY: Cholecystectomy. PANCREAS: No lesion, fluid collection, or abnormal duct dilatation. SPLEEN: No enlargement or focal lesion. ADRENALS: No mass or enlargement. KIDNEYS: Mild right hydronephrosis and hydroureter secondary to a 3 mm partially obstructing stone at the ureterovesical junction. Additional nonobstructing small stone(s) within right kidney. Unremarkable left kidney and ureter. BOWEL/MESENTERY: No visible mass, obstruction, or bowel wall thickening. AORTA/VASCULAR: No aneurysm or dissection. RETROPERITONEUM: No mass or adenopathy. LYMPH NODES: No adenopathy. URINARY BLADDER: No visible focal wall thickening, lesion, or calculus. PELVIC ORGANS: No visible mass. Pelvic organs appropriate for patient age. ABDOMINAL WALL: No mass or hernia. BONES: No bony lesion or fracture. OTHER: Negative. CT/CT abdomen pelvis w con IMPRESSION: 1. Mild right hydronephrosis secondary to a partially obstructing 3 mm stone within distal right ureter at the ureterovesical junction. Electronically authenticated by: ONEL CLARK Date: 10/24/2023 06:29
--- OUTSIDE RECORDS SUMMARY | 2023-10-24 04:50 | XMS_ITS | CCD ---
Author Organization [facility] CliniSyri Care Team Providers Care Hematology Technician Name Role Phone Juan Ramon Jean Unavailable [...] Garg Unavailable DOMENICA OLIVA Primary Care Physician HILRAY GRANADO Referring Unavailable HILARY GRANADO Attending Unavailable Rumschlag DO, Shawna Primary Care Provider Rumschviviane MARQUEZ, Shawna K Primary Care Provider MD Yo Blank Attending Provider Rumzandra DO Shawna Primary Care Provider RUMSCHLAG, SHAWNA K Referring Unavailable RUMSCHLAG, SHAWNA K Primary Care Unavailable RUMSCHLAG, SHAWNA K Referring Unavailable RUMSCHLAG, SHAWNA K Primary Care Unavailable NON STAFF Primary Care Unavailable Yo Blank Attending Unavailable Yo Blank Admitting Unavailable Rumschlag, Shawna Primary Care Unavailable Yo Blank Attending Unavailable Yo Blank Admitting Unavailable ErynMyrtle Admitting Unavailable Shammo, Rory T Primary Care Unavailable Myrtle Cerna Attending Unavailable LULY ENGLISH Attending Unavailable GABY JUNE Attending Unavailable ALICIA PRESTON Attending Unavailable LAILA LIEBERMAN Attending Unavailable [facility], [facility] Primary Care Unava ilable SHAMMO, RORY Referring Unavailable RUMSCHLAG, SHAWNA K Primary Care Unavailable SHAMMO, RORY Referring Unavailable RUMSCHLAG, SHAWNA K Primary Care Unavailable PETE SILVER Attending Unavailable SILVERPETE CLEMENS Referring Unavailable RUMSCHLAG, SHAWNA K Primary Care Unavailable PEET SILVER Admitting Unavailable PETE SILVER Attending Unavailable RUMSCHLAG, SHAWNA K Referring Unavailable RUMSCHLAG, SHAWNA K Primary Care Unavailable GAURAV SELLERS Attending Unavailable RUMSCHLAG, SHAWNA K Referring Unavailable RUMSCHLAG, SHAWNA K Primary Care Unavailable DEEPIKA ROBLEDO Attending Unavailable JORGE, CARMEN Referring Unavailable RUMSCHLAG, SHAWNA K Primary Care Unavailable DWAYNE KHOURY Attending Unavail able RUMSCHLAG, SHAWNA K Referring Unavailable [facility] Primary Care Unava ilable RUMSCHLAG, SHAWNA Primary Care Unavailable RUMSCHLAG, SHAWNA Referring Unavailable RUMSCHLAG, SHAWNA Primary Care Unavailable RUMSCHLAG, SHAWNA Referring Unavailable RUMSCHLAG, SHAWNA Primary Care Unavailable RUMSCHLAG, SHAWNA Referring Unavailable RUMSCHLAG, SHAWNA Primary Care Unavailable RUMSCHLAG, SHAWNA Referring Unavailable RUMSCHLAG, SHAWNA Primary Care Unavailable RUMSCHLAG, SHAWNA Referring Unavailable SIL SULLIVAN Attending Unavailable RUMSCHLAG, SHAWNA Primary Care Unavailable NAVEEN SANCHEZ Attending Unavailable RUMSCHLAG, SHAWNA [...] (antibiotic) (2 sources) Cephalexin Drug Allergy 7 [facility] Serotonin Reuptake Inhibitors (SSRIs) (2 sources) Citalopram Drug Allergy 7 [facility] (20 sources) cephalexin; Translations: [Keflex] Drug Allergy 3 [facility] Repository (4 sources) citalopram; Translations: [CeleXA] Drug Allergy 3 AOF, heart palpitation [facility] Repository (20 sources) Cephalexin; Translations: [CEPHALEXIN] Drug Allergy [address] [facility] [employer] Work Phone: (20 sources) Citalopram; Translations: [CITALOPRAM] Drug Allergy 7 Hives, anaphylaxis [facility] [employer] (5 sources) metFORMIN Drug Allergy Unknown [facility] Other (20 sources) metFORMIN; Translations: [METFORMIN] Drug Allergy 3 Unknown, Unknown Reaction [employer] (10 sources) POISON DEVORAH EXTRACT; Translations: [POISON DEVORAH EXTRACT] Drug Allergy 3 [employer] (8 sources) Metformin And Related Propensity to adverse reactions to drug 4 Other (See Comments) [employer] (1 source) Cephalexin Drug Allergy 4 [facility] Repository (1 source) Citalopram Drug Allergy 4 [facility] Repository (1 source) metFORMIN Drug Allergy 4 [facility] Repository Medications Current Medications Medication Drug Class(es) Dates Sig (Normalized) Sig (Original) [id number] 200 actuat albuterol 0.09 mg/actuat metered dose [...] every 4 hours as needed for Wheezing Active Albuterol PRN Ac tive Ros Allergy [...] 1:00am blood-glucose meter (TRUE METRIX GLUCOSE METER) mis (7 sources) Start: 06-18-19 19 blood-glucose meter (TRUE METRIX GLUCOSE METER) [facility] use to test BLOOD SUGAR TWICE DAILY [...] Active ferrous sulfate 325 mg oral tablet (19 sources) Start: 04-09-2020 take 1 tablet by [...] capsule Take 60 mg by mouth daily Active fluticasone propionate 0.05 mg/actuat metered dose nasal spray (20 sources) Corticosteroid Start: 07-16-2020 take 2 spray(s) nasal route once daily fluticasone propionate (FLONASE) 50 mcg/actuation nasal spray instill 2 (TWO) sprays in EACH nostril ONCE DAILY 16 g 0 07/16/2020 Active fluticasone (ANTHONY NASE) 50 MCG/ACT nasal spray 1 spray by Nasal route daily Active Flonase PRN Acti ve gabapentin 100 [...] / neomycin 3.5 mg/ml / polymyxin b 37243 unt/ml otic solution (1 source) Aminoglycoside Antibacterial, Polymyxin-class Antibacterial, Corticosteroid Start: 10-22-2021 End: 10-29-2021 udwjwglb-xxujewaxq-hvgetcasu isone (CORTISPORIN) 3.5-79544-[address] 4 drops into the left ear 3 times daily for 7 days Instill into left Ear TID x 7 days 10 mL 0 10/22/2021 10/29/2021 Active hydrOXYzine hydrochloride 25 mg oral tablet (12 sources) Antihistamine Start: 10-21-2017 take 1 tablet [...] Not-Taking/PRN 10 ml methocarbamol 100 mg/ml injection (13 sources) Muscle Relaxant Start: 10-14-2018 Robaxin 100 mg /mL inj Refills(s) 0 Start Date: 10/14/18 Status: Ordered take 1 tablet by elan th three times daily methocarbamol (ROBAXIN) 500 MG tablet Ta ke 500 mg by mouth 3 times daily Active montelukast 10 mg oral tablet (20 sources) Leukotriene Receptor Antagonist Start: 10-14-2018 take 1 tablet by mouth once daily montelukast (SINGULAIR) 10 mg tablet TAKE 1 TABLET BY MOUTH NIGHTLY 30 tablet 0 07/16/2020 Active rfcwqbmx-klfo-HB-ca lcium &mins (THERAGRAN-M) 9 mg iron-400 mcg tablet (7 sources) ctupvtpj-oslc-YN -c alcium &mins (THERAGRAN-M) 9 mg iron-400 [...] omeprazole 20 mg delayed release oral capsule (12 sources) Proton Pump Inhibitor take 2 capsules by mouth once daily omeprazole (PRILOSEC) 20 MG delayed release capsule Take 40 mg by mouth daily Active pioglitazone 30 mg oral tablet (20 [...] 30 days Jan, Active polyethylene glycol 3350 576208 mg / potassium chloride 2970 mg / sodium bicarbonate 6740 mg / sodium chloride 5860 mg / sodium sulfate 97977 mg powder for oral solution (2 sources) [...] Nausea, # 20 tab(s), Refills(s) 0, Pharmacy: [id number], 157, cm, 03/10/19 12:21:00 EST, Height/Length [...] day Active temazepam 15 mg oral capsule (12 sources) Benzodiazepine take 1 capsule by mouth once daily as needed for sleep temazepam (RESTORIL) 15 MG capsule Take 15 mg by mouth nightly as needed for Sleep Active tiZANidine 4 mg oral tablet (20 [...] Status: Ordered take 2 tablets by mo [facility] every twenty-four hours tiZANidine HCl 4 MG 2 tablet Orally daily Active take 1 tablet by elan every twelve hours tiZANidine HCl 4 MG 1 tablet Orally TWICE A DAY Active topiramate 200 mg oral tablet (12 sources) take 1 tablet by mouth once daily topiramate (TOPAMAX) 200 MG tablet Take 200 mg by mouth daily Active traMADol hydrochloride 50 mg oral tablet [...] D Active zonisamide 100 mg oral capsule (12 sources) Anti-epileptic Agent take 1 capsule by mouth once daily zonisamide (ZONEGRAN) 100 MG capsule Take 100 mg by mouth daily Active Completed/Discontinued Medications Medication Drug Class(es) Dates [...] May 21, 2023 11:36am polyethylene glycol 3350 38053 mg powder for oral solution (7 sources) [...] chronic nonalcoholic liver disease] Onset: 10-29-2021 Resolved: 10-29-2021 Chronic Other nervous [...] significant stool or gas noted. Evidence of llpe-sh-spzezybm diverticulosis of proximal sigmoid colon and descending [...] Zoë Nicole MD 10/07/23 Final result Normal [facility] Comp Metabolic Profon 2023 Albumin [Mass/Vol] 4.1 g/dL Normal 3.5-5.2 [facility] Comment on above: Performed By: #### C DP, TROPI, CP, LIP ####[address] , [place] [phone] Director: Domenica Velázquez MD Albumin/Glob Ratio 1.4 Normal 1.0-2.5 [facility] Comment on above: Performed By: #### C DP, TROPI, CP, LIP ####[address] , [place] [phone] Director: Domenica Velázquez MD Alkaline Phos 85 U/L Normal 35-104 [facility] Comment on above: Performed By: #### C DP, TROPI, CP, LIP ####[address] , [place] [phone] Director: Domenica Velázquez MD ALT [Catalytic activity/Vol] 12 U/L Normal 5-33 [facility] Comment on above: Performed By: #### C DP, TROPI, CP, LIP ####[address] , [place] [phone] Director: Domenica Velázquez MD Anion gap [Moles/Vol] 11 mmol/L Normal 9-17 [facility] Comment on above: Performed By: #### C DP, TROPI, CP, LIP ####[address] , [place] [phone] Director: Domenica Velázquez MD AST [Catalytic activity/Vol] 14 U/L Normal <32 [facility] Comment on above: Performed By: #### C DP, TROPI, CP, LIP ####[address] , [place] [phone] Lab Director: Domenica Velázquez MD Bilirubin [Mass/Vol] 0.2 mg/dL Low 0.3-1.2 [facility] Comment on above: Performed By: #### C DP, TROPI, CP, LIP ####[address] [place] [address] Lab Director: Domenica Velázquez MD BUN/CRE Ratio 30 High 9-20 [facility] Comment on above: Performed By: #### C DP, TROPI, CP, LIP ####[address] [place] [address] Lab Director: Domenica Velázquez MD Calcium [Mass/Vol] 8.8 mg/dL Normal 8.6-10.4 [facility] Comment on above: Performed By: #### C DP, TROPI, CP, LIP ####[address] , [place] [phone] Director: Domenica Velázquez MD Chloride [Moles/Vol] 103 mmol/L Normal 98-107 [facility] Comment on above: Performed By: #### C DP, TROPI, CP, LIP ####[address] , [place] [phone] Director: Domenica Velázquez MD CO2 [Moles/Vol] 25 mmol/L Normal 20-31 [facility] Comment on above: Performed By: #### C DP, TROPI, CP, LIP ####[address] [place] [address] Lab Director: Domenica Velázquez MD Creatinine [Mass/Vol] 0.6 mg/dL Normal 0.5-0.9 [facility] Comment on above: Performed By: #### C DP, TROPI, CP, LIP ####[address] [place] [address] Lab Director: Domenica Velázquez MD GFR/1.73 sq M.predicted among non-blacks MDRD (S/P/Bld) [Vol rate/Area] mL/min/{1.73_m2} Normal >60 [facility] Comment on above: Result Comment: These [...] renal tubular secretion. Performed By: #### C DP TROPI, CP, LIP ####[address] [place] [address] Lab Director: Domenica Velázquez MD Glucose [Mass/Vol] 92 mg/dL Normal 70-99 [facility] Comment on above: Performed By: #### C DP TROPI CP, LIP ####[address] [place] [address] Lab Director: Domenica Velázquez MD Potassium [Moles/Vol] 3.6 mmol/L Low 3.7-5.3 [facility] Comment on above: Performed By: #### C MANUELA TROPI CP, LIP ####[address] , [place] [phone] Lab Director: Domenica Velázquez MD Protein [Mass/Vol] 7.0 g/dL Normal 6.4-8.3 [facility] Comment on above: Performed By: #### C DP TROPI, CP, LIP ####[address] [place] [address] Lab Director: Domenica Velázquez MD Sodium [Moles/Vol] 139 mmol/L Normal 135-144 [facility] Comment on above: Performed By: #### C DP, TROPI, CP, LIP ####[facility] [place] , [place] [phone] Lab Director: Domenica Velázquez MD Urea nitrogen [Mass/Vol] 18 mg/dL Normal 6-20 [facility] Comment on above: Performed By: #### C DP, TROPI, CP, LIP ####[facility] [place] , [place] [phone] [facility] Director: Domenica Velázquez MD Lipaseon 10-07-2023 Lipase [Catalytic activity/Vol] 28 U/L Normal 13-60 [facility] Comment on above: Performed By: #### C DP, TROPI, CP, LIP ####[facility] [place] , [place] 8021783 [facility] Director: Domenica Velázquez MD Troponinon 10-07-2023 Troponin, High Sens <6 Normal 0-14 [facility] Comment on above: Result Comment: High Sensitivity Troponin values cannot be compared with other Troponin methodologies. Performed By: #### C DP, TROPI, CP, LIP ####[facility] [place] , [place] [phone] Lab Director: Domenica Velázquez MD CBC with Diffon 10-06-2023 Abs. Basophil 0.03 k/uL Normal 0.00-0.20 [facility] Comment on above: Performed By: #### C DP, TROPI, CP, LIP #### [facility] [address] [place], [place] [phone] Manager [place]: Domenica Velázquez MD Abs.Imm.Granulocyte 0.03 k/uL Normal 0.00-0.30 [facility] Comment on above: Performed By: #### C DP, TROPI, CP, LIP #### [facility] [address] [place] [address] Manager [place]: Domenica Velázquez MD Abs.Neutrophil (Seg) 6.50 k/uL Normal 1.50-8.10 [facility] Comment on above: Performed By: #### C DP, TROPI, CP, LIP #### [address] [place], [place] [phone] Manager [place]: Domenica Velázquez MD Basophils/100 WBC (Bld) 0 % Normal 0-2 [facility] Comment on above: Performed By: #### C DP, TROPI, CP, LIP #### [address] [place], [facility]83 Manager [place]: Domenica Velázquez MD Eosinophils (Bld) [#/Vol] 0.08 10*3/uL Normal 0.00-0.44 [facility] Comment on above: Performed By: #### C DP, TROPI, CP, LIP #### [address] [place], [facility]83 Manager [place]: Domenica Velázquez MD Eosinophils/100 WBC (Bld) 1 % Normal 1-4 [facility] Comment on above: Performed By: #### C DP, TROPI, CP, LIP #### [address] [place], [facility]83 Manager [place]: Domenica Velázquez MD Erythrocyte distribution width (RBC) [Ratio] 13.5 % Normal 11.8-14.4 [facility] Comment on above: Performed By: #### C DP, TROPI, CP, LIP #### [address] [place], [facility]83 Manager [place]: Domenica Velázquez MD Hematocrit (Bld) [Volume fraction] 40.1 % Normal 36.3-47.1 [facility] Comment on above: Performed By: #### C DP, TROPI, CP, LIP #### [address] [place], [facility]83 Manager Country: Domenica Velázquez MD Hemoglobin (Bld) [Mass/Vol] 13.4 g/dL Normal 11.9-15.1 [facility] Comment on above: Performed By: #### C DP, TROPI, CP, LIP #### [facility] [address] [place], [place] [phone] Manager [place]: Domenica Velázquez MD Immature granulocytes/100 WBC (Bld) 0 % Normal 0 [facility] Comment on above: Performed By: #### C DP, TROPI, CP, LIP #### [facility] [address] [place], [place] [phone] Manager [place]: Domenica Velázquez MD Lymphocytes (Bld) [#/Vol] 2.41 10*3/uL Normal 1.10-3.70 [facility] Comment on above: Performed By: #### C DP, TROPI, CP, LIP #### [address] [place], [facility]83 Manager Country: Domenica Velázquez MD Lymphocytes/100 WBC (Bld) 25 % Normal 24-43 [facility] Comment on above: Performed By: #### C DP, TROPI, CP, LIP #### [address] [place] [address] Manager [place]: Domenica Velázquez MD MCH (RBC) [Entitic mass] 28.6 pg Normal 25.2-33.5 [facility] Comment on above: Performed By: #### C DP, TROPI, CP, LIP #### [address] [place] [address] Manager [place]: Domenica Velázquez MD MCHC (RBC) [Mass/Vol] 33.4 g/dL Normal 28.4-34.8 [facility] Comment on above: Performed By: #### C DP, TROPI, CP, LIP #### [address] [place] [address] Manager [place]: Domenica Velázquez MD MCV (RBC) [Entitic vol] 85.7 fL Normal 82.6-102.9 [facility] Comment on above: Performed By: #### C DP, TROPI, CP, LIP #### [address] [place], [place] [phone] Manager [place]: Domenica Velázquez MD Monocytes (Bld) [#/Vol] 0.69 10*3/uL Normal 0.10-1.20 [facility] Comment on above: Performed By: #### C DP, TROPI, CP, LIP #### [address] [place] [address] Manager [place]: Domenica Velázquez MD Monocytes/100 WBC (Bld) 7 % Normal 3-12 [facility] Comment on above: Performed By: #### C DP, TROPI, CP, LIP #### [address] [place], [place] [address] Manager Country: Domenica Velázquez MD Neutrophil (Seg) 67 % High 36-65 [facility] Comment on above: Performed By: #### C DP, TROPI, CP, LIP #### [address] [place] [address] Manager [place]: Domenica Velázquez MD NRBC Automated 0.0 per 100 WBC Normal 0.0 [facility] Comment on above: Performed By: #### C DP, TROPI, CP, LIP #### [address] [place] [address] Manager Country: Domenica Velázquez MD Platelet mean volume (Bld) [Entitic vol] 10.5 fL Normal 8.1-13.5 [facility] Comment on above: Performed By: #### C DP, TROPI, CP, LIP #### [address] [place], [place] [phone] Manager [place]: Domenica Velázquez MD Platelets (Bld) [#/Vol] 292 10*3/uL Normal 138-453 [facility] Comment on above: Performed By: #### C DP, TROPI, CP, LIP #### [facility] [address] [place], [place] [phone] Manager [place]: Domenica Velázquez MD RBC (Bld) [#/Vol] 4.68 10*6/uL Normal 3.95-5.11 [facility] Comment on above: Performed By: #### C DP, TROPI, CP, LIP #### [facility] [address] [place], [place] [phone] Manager [place]: Domenica Velázquez MD WBC (Bld) [#/Vol] 9.7 10*3/uL Normal 3.5-11.3 [facility] Comment on above: Performed By: #### C DP, TROPI, CP, LIP #### [facility] [address] [place], [place] [phone] Manager [place]: Domenica Velázquez MD Basic Metabolic Profon 10-04 Anion gap [Moles/Vol] 10 mmol/L Normal 9-17 [facility] Comment on above: Performed By: #### D BASIA, BMP, CDP, TROPI #### [facility] [address] [place], [place] [phone] Manager [place]: Domenica Velázquez MD BUN/CRE Ratio 23 High 9-20 [facility] Comment on above: Performed By: #### D BASIA, BMP, CDP, TROPI #### [facility] [address] [place], [place] [phone] Manager Country: Domenica Velázquez MD Calcium [Mass/Vol] 8.9 mg/dL Normal 8.6-10.4 [facility] Comment on above: Performed By: #### D BASIA, BMP, CDP, TROPI #### [facility] [address] [place], [place] [phone] Manager Country: Domenica Velázquez MD Chloride [Moles/Vol] 105 mmol/L Normal 98-107 [facility] Comment on above: Performed By: #### D BASIA, BMP, CDP, TROPI #### [facility] [address] [place] [address] Manager Country: Domenica Velázquez MD CO2 [Moles/Vol] 26 mmol/L Normal 20-31 [facility] Comment on above: Performed By: #### D BASIA, BMP, CDP, TROPI #### [facility] [address] [place] [address] Manager Country: Domenica Velázquez MD Creatinine [Mass/Vol] 0.6 mg/dL Normal 0.5-0.9 [facility] Comment on above: Performed By: #### D BASIA, BMP, CDP, TROPI #### [facility] [address] [place] [address] Manager [place]: Domenica Velázquez MD GFR/1.73 sq M.predicted among non-blacks MDRD (S/P/Bld) [Vol rate/Area] mL/min/{1.73_m2} Normal >60 [facility] Comment on above: Result Comment: These [...] #### D BASIA, BMP, CDP, TROPI #### [facility] [address] [place] [address] Manager Country: Domenica Velázquez MD Glucose [Mass/Vol] 96 mg/dL Normal 70-99 [facility] Comment on above: Performed By: #### D BASIA, BMP, CDP, TROPI #### [facility] [address] [place] [phone] Manager Country: Domenica Velázquez MD Potassium [Moles/Vol] 3.8 mmol/L Normal 3.7-5.3 [facility] Comment on above: Performed By: #### D BASIA, BMP, CDP, TROPI #### [facility] [address] [place] [address] [place], [place] [phone] Manager [place]: Domenica Velázquez MD Sodium [Moles/Vol] 141 mmol/L Normal 135-144 [facility] Comment on above: Performed By: #### D BASIA, BMP, CDP, TROPI #### [address] [place] [phone] Manager [place]: Domenica Velázquez MD Urea nitrogen [Mass/Vol] 14 mg/dL Normal 6-20 [facility] Comment on above: Performed By: #### D BASIA, BMP, CDP, TROPI #### [address] [place], [facility]83 Manager Country: Domenica Velázquez MD CBC with Diffon 10-05-2023 Abs. Basophil <0.03 Normal 0.00-0.20 [facility] Comment on above: Performed By: #### D BASIA, BMP, CDP, TROPI #### [address] [place], [facility]83 Manager Country: Domenica Velázquez MD Abs.Imm.Granulocyte 0.03 k/uL Normal 0.00-0.30 [facility] Comment on above: Performed By: #### D BASIA, BMP, CDP, TROPI #### [address] [place], [place] [phone] Manager Country: Domenica Velázquez MD Abs.Neutrophil (Seg) 5.10 k/uL Normal 1.50-8.10 [facility] Comment on above: Performed By: #### D BASIA, BMP, CDP, TROPI #### [facility] [place], [facility]83 Manager Country: Domenica Velázquez MD Basophils/100 WBC (Bld) 0 % Normal 0-2 [facility] Comment on above: Performed By: #### D BASIA, BMP, CDP, TROPI #### [address] [place] [phone] Manager [place]: Domenica Velázquez MD Eosinophils (Bld) [#/Vol] 0.11 10*3/uL Normal 0.00-0.44 [facility] Comment on above: Performed By: #### D BASIA, BMP, CDP, TROPI #### [address] [place], [facility]83 Manager Country: Domenica Velázquez MD Eosinophils/100 WBC (Bld) 1 % Normal 1-4 [facility] Comment on above: Performed By: #### D BASIA, BMP, CDP, TROPI #### [address] [place], [facility]83 Manager Country: Domenica Velázquez MD Erythrocyte distribution width (RBC) [Ratio] 13.5 % Normal 11.8-14.4 [facility] Comment on above: Performed By: #### D BASIA, BMP, CDP, TROPI #### [address] [place], [facility]83 Manager Country: Domenica Velázquez MD Hematocrit (Bld) [Volume fraction] 42.6 % Normal 36.3-47.1 [facility] Comment on above: Performed By: #### D BASIA, BMP, CDP, TROPI #### [address] [place] [phone] Manager [place]: Domenica Velázquez MD Hemoglobin (Bld) [Mass/Vol] 14.1 g/dL Normal 11.9-15.1 [facility] Comment on above: Performed By: #### D BASIA, BMP, CDP, TROPI #### [facility] [address] [place], [place] [phone] Manager Country: Domenica Velázquez MD Immature granulocytes/100 WBC (Bld) 0 % Normal 0 [facility] Comment on above: Performed By: #### D BASIA, BMP, CDP, TROPI #### [facility] [address] [place], [place] [phone] Manager Country: Domenica Velázquez MD Lymphocytes (Bld) [#/Vol] 2.42 10*3/uL Normal 1.10-3.70 [facility] Comment on above: Performed By: #### D BASIA, BMP, CDP, TROPI #### [facility] [address] [place], [facility]83 Manager Country: Domenica Velázquez MD Lymphocytes/100 WBC (Bld) 30 % Normal 24-43 [facility] Comment on above: Performed By: #### Smiley BASIA, BMP, CDP, TROPI #### [address] [address] [place], [facility]83 Manager Country: Domenica Velázquez MD MCH (RBC) [Entitic mass] 28.8 pg Normal 25.2-33.5 [facility] Comment on above: Performed By: #### SHAWNA CLEMENTE, CDP, TROPI #### [address] [place], [facility]83 Manager Country: Domenica Velázquez MD MCHC (RBC) [Mass/Vol] 33.1 g/dL Normal 28.4-34.8 [facility] Comment on above: Performed By: #### D BASIA, BMP, CDP, TROPI #### [facility] [address] [place] [address] Manager Country: Domenica Velázquez MD MCV (RBC) [Entitic vol] 87.1 fL Normal 82.6-102.9 [facility] Comment on above: Performed By: #### D BASIA, BMP, CDP, TROPI #### [facility] [address] [place], [place] [id number] Manager Country: Domenica Velázquez MD Monocytes (Bld) [#/Vol] 0.53 10*3/uL Normal 0.10-1.20 [facility] Comment on above: Performed By: #### D BASIA, BMP, CDP, TROPI #### [facility] [address] [place], [facility]83 Manager Country: Domenica Velázquez MD Monocytes/100 WBC (Bld) 7 % Normal 3-12 [facility] Comment on above: Performed By: #### D BASIA, BMP, CDP, TROPI #### [facility] [address] [place], [facility]83 Manager Country: Domenica Velázquez MD Neutrophil (Seg) 62 % Normal 36-65 [facility] Comment on above: Performed By: #### D BASIA, BMP, CDP, TROPI #### [address] [place], [place] [id number] Manager Country: Domenica Velázquez MD NRBC Automated 0.0 per 100 WBC Normal 0.0 [facility] Comment on above: Performed By: #### D BASIA, BMP, CDP, TROPI #### [address] [place], [facility]83 Manager Country: Domenica Velázquez MD Platelet mean volume (Bld) [Entitic vol] 10.9 fL Normal 8.1-13.5 [facility] Comment on above: Performed By: #### D BASIA, BMP, CDP, TROPI #### [facility] [address] [place] [address] Manager Country: Domenica Velázquez MD Platelets (Bld) [#/Vol] 296 10*3/uL Normal 138-453 [facility] Comment on above: Performed By: #### D BASIA, BMP, CDP, TROPI #### [facility] [address] [place], [place] [phone] Manager Country: Domenica Velázquez MD RBC (Bld) [#/Vol] 4.89 10*6/uL Normal 3.95-5.11 [facility] Comment on above: Performed By: #### D BASIA, BMP, CDP, TROPI #### [facility] [address] [place] [address] Manager Country: Domenica Velázquez MD WBC (Bld) [#/Vol] 8.2 10*3/uL Normal 3.5-11.3 [facility] Comment on above: Performed By: #### D BASIA, BMP, CDP, TROPI #### [facility] [address] [place] [phone] Manager Country: Domenica Velázquez MD CT CHEST PULMONARY EMBOLISM [...] Fernando Marcelino MD 10/05/23 Final result Normal [facility] D-Dimer Teston 10-05-2023 D-Dimer Test 0.30 ug/mL FEU Normal 0.00-0.59 [facility] Comment on above: Result Comment: When combined [...] #### D BASIA, BMP, CDP, TROPI #### [facility] [address] [place] [address] Manager [place]: Domenica Velázquez MD Liver Profileon 10-05-2023 Albumin [Mass/Vol] 4.4 g/dL Normal 3.5-5.2 [facility] Comment on above: Performed By: #### L IVP #### [facility] [address] [place] [address] Manager Country: Domenica Velázquez MD Albumin/Glob Ratio 1.4 Normal 1.0-2.5 [facility] Comment on above: Performed By: #### L IVP #### [facility] [address] [place], [place] [phone] Manager Country: Domenica Velázquez MD Alkaline Phos 99 U/L Normal 35-104 [facility] Comment on above: Performed By: #### L IVP #### [facility] [address] [place], [place] [phone] Manager Country: Domenica Velázquez MD ALT [Catalytic activity/Vol] 13 U/L Normal 5-33 [facility] Comment on above: Performed By: #### L IVP #### [facility] [address] [place], [place] [phone] Manager Country: Domenica Velázquez MD AST [Catalytic activity/Vol] 16 U/L Normal <32 [facility] Comment on above: Performed By: #### L IVP #### [facility] [address] [place], [place] [phone] Manager Country: Domenica Velázquez MD Bilirubin [Mass/Vol] 0.2 mg/dL Low 0.3-1.2 [facility] Comment on above: Performed By: #### L IVP #### [facility] [address] [place] [address] [address] [place], [place] [phone] Manager Country: Domenica Velázquez MD Bilirubin, Indirect Can not be calculated Normal 0.0-1 .0 [facility] Comment on above: Performed By: #### L IVP #### [facility] [address] [place], [place] [phone] Manager Country: Domenica Velázquez MD Bilirubin.indirect [Mass/Vol] mg/dL Normal <0.3 [facility] Comment on above: Performed By: #### L IVP #### [facility] [address] [place], [place] [phone] Manager Country: Domenica Velázquez MD Protein [Mass/Vol] 7.5 g/dL Normal 6.4-8.3 [facility] Comment on above: Performed By: #### L IVP #### [facility] [address] [place], [place] [phone] Manager Country: Domenica Velázquez MD Troponinon 10-05-2023 Troponin, High Sens <6 Normal 0-14 [facility] Comment on above: Result Comment: High Sensitivity Troponin values cannot be compared with other Troponin methodologies. Performed By: #### T ROPI ####[facility] [place] [address] Lab Director: Domenica Velázquez MD Troponin, High Sens <6 Normal 0-14 [facility] Comment on above: Result Comment: High Sensitivity Troponin values cannot be compared with other Troponin methodologies. Performed By: #### D BASIA, BMP, CDP, TROPI #### [facility] [address] [place] [address] Manager Country: Domenica Velázquez MD XR CHEST PORTABLEon 10-05-19 [...] Deyanira Lock MD 10/05/23 Final result Normal [facility] CT CERVICAL SPINE WO CONTRAS Ton [...] Andi Montoya MD 04/20/23 Final result Normal [facility] CT Cervical spine WO contras ton 04-20-2023 Radiology Study observation (narrative) [facility] CT HEAD WO CONTRASTon 2023 CT HEAD [...] Andi Montoya MD 04/20/23 Final result Normal [facility] CT Head WO contraston 2023 Radiology Study observation (narrative) [facility] No Panel Informationon 04-[address] abnormal ity identified in the brain. No acute osseous abnormality identified in the cervical spine. [facility] RIS CONSOLIDATED EXAMINATION: CT OF THE CERVICAL [...] There is no prevertebral soft tissue swelling. [facility] RIS CONSOLIDATED Andi Montoya MD - 04/20/2023 [...] osseous abnormality identified in the cervical spine. [facility] No Panel InformationOrdered By: Andi Montoya on 04-20-2023 [facility] Work Phone: Glucose Glucometer (BldC) [M ass/Vol]on 03-27-2023 Glucose [Mass/Vol] 151 mg/dL High 65-99 [facility] Glucose Poct Glucometerson 0 03-18-2023 Commemt1 Glu2: Cleaned Meter Normal [facility] Comment on above: Result Comment: PERF ORMED BY: [facility] [address] [place] [address] PATHOLOGIST PIE FILLER SHA VALERA M.D. Performed By: #### G LULS #### Point of Care testing , Glucose [Mass/Vol] 87 mg/dL Normal [facility] Comment on above: Result Comment: [facility] Glucose Reference Range is dependent on time and content of last meal. Glucose of more than 200 mg/dL in a nonstressed, ambulatory subject supports the diagnosis of Diabetes Mellitus. Performed By: #### G LULS #### Point of Care testing , HCG,Urineon 03-18-2023 Beta HCG ( test) Ql (U) Negative Normal [facility] Comment on above: Result Comment: PERF ORMED BY: [place] [address] PATHOLOGIST PIE FILLER SHA VALERA M.D. Performed By: #### U HCG #### [address] CBC AND AUTO DIFFon 03-16-19 ABSOLUTE BASOPHIL 0.0 X10E9/L Normal 0.0-0.2 [facility] Comment on above: Performed By: #### 2 4331-1, CBCA, CMP, TSHR #### [facility] ([id number]) [address], [address] [place] [address] ABSOLUTE NEUTROPHIL 7.7 X10E9/L High 1.5-6.6 [facility] Comment on above: Performed By: #### 2 4331-1, CBCA, CMP, TSHR #### [facility] ([id number]) [address], [address] [place] [address] Basophils/100 WBC (Bld) 0.3 % Normal [facility] Comment on above: Performed By: #### 2 4331-1, CBCA, CMP, TSHR #### [facility] ([id number]) [address] [place] [address] Eosinophils (Bld) [#/Vol] 0.1 10*3/uL Normal 0.0-0.4 [facility] Comment on above: Performed By: #### 2 4331-1, CBCA, CMP, TSHR #### [facility] ([id number]) [address] [address] [place] [address] Eosinophils/100 WBC (Bld) 1.1 % Normal [facility] Comment on above: Performed By: #### 2 4331-1, CBCA, CMP, TSHR #### [facility] ([id number]) [address] [address] Erythrocyte distribution width (RBC) [Ratio] 14.6 % Normal 11.5-15.0 [facility] Comment on above: Performed By: #### 2 4331-1, CBCA, CMP, TSHR #### [facility] ([id number]) [address] [address] Hematocrit (Bld) [Volume fraction] 45.7 % Normal 35-47 [facility] Comment on above: Performed By: #### 2 4331-1, CBCA, CMP, TSHR #### [facility] ([id number]) [address] [address] Hemoglobin (Bld) [Mass/Vol] 15.0 g/dL Normal 11.7-15.5 [facility] Comment on above: Performed By: #### 2 4331-1, CBCA, CMP, TSHR #### [facility] ([id number]) [address] [address] Lymphocytes (Bld) [#/Vol] 2.4 10*3/uL Normal 1.0-3.5 [facility] Comment on above: Performed By: #### 2 4331-1, CBCA, CMP, TSHR #### [facility] ([id number]) [address] [address] Lymphocytes/100 WBC (Bld) 22.1 % Normal [facility] Comment on above: Performed By: #### 2 4331-1, CBCA, CMP, TSHR #### [facility] ([id number]) [address] [address] [place] [address] MCH (RBC) [Entitic mass] 29.0 pg Normal 27-34 [facility] Comment on above: Performed By: #### 2 4331-1, CBCA, CMP, TSHR #### [facility] ([id number]) [address], [facility] [address] [place] [address] MCHC (RBC) [Mass/Vol] 32.8 g/dL Normal 32-36 [facility] Comment on above: Performed By: #### 2 4331-1, CBCA, CMP, TSHR #### [facility] ([id number]) [address] [address] [place] [address] MCV (RBC) [Entitic vol] 88 fL Normal 80-100 [facility] Comment on above: Performed By: #### 2 4331-1, CBCA, CMP, TSHR #### [facility] ([id number]) [address], [facility] [address] [place] [address] Monocytes (Bld) [#/Vol] 0.6 10*3/uL Normal 0-0.9 [facility] Comment on above: Performed By: #### 2 4331-1, CBCA, CMP, TSHR #### [facility] ([id number]) [address] [address] [place] [address] Monocytes/100 WBC (Bld) 5.7 % Normal [facility] Comment on above: Performed By: #### 2 4331-1, CBCA, CMP, TSHR #### [facility] ([id number]) [address] [address] [place] [address] Neutrophils/100 WBC (Bld) 70.8 % Normal [facility] Comment on above: Performed By: #### 2 4331-1, CBCA, CMP, TSHR #### [facility] ([id number]) [address], [address] [place] [address] Platelet mean volume (Bld) [Entitic vol] 9.7 fL Normal 7-12 [facility] Comment on above: Performed By: #### 2 4331-1, CBCA, CMP, TSHR #### [facility] ([id number]) [address], [facility] [address] [place] [address] Platelets (Bld) [#/Vol] 303 10*3/uL Normal 150-450 [facility] Comment on above: Performed By: #### 2 4331-1, CBCA, CMP, TSHR #### [facility] ([id number]) [address], [facility] [address] [place] [address] RBC COUNT 5.17 X10E12/L Normal 3.80-5.20 [facility] Comment on above: Performed By: #### 2 4331-1, CBCA, CMP, TSHR #### [facility] ([id number]) [address] [address] [place] [address] WBC (Bld) [#/Vol] 10.9 10*3/uL Normal 4.0-11.0 [facility] Comment on above: Performed By: #### 2 4331-1, CBCA, CMP, TSHR #### [facility] ([id number]) [address], [address] [place] [address] COMPREHENSIVE METABOLIC PANE Dirk 03-16-2023 Albumin [Mass/Vol] 4.7 g/dL Normal 3.2-5.3 [facility] Comment on above: Performed By: #### 2 4331-1, CBCA, CMP, TSHR #### [facility] ([id number]) [address] [address] [place] [address] ALP [Catalytic activity/Vol] 74 U/L Normal 39-130 [facility] Comment on above: Performed By: #### 2 4331-1, CBCA, CMP, TSHR #### [facility] ([id number]) [address], [address] [place] [address] ALT [Catalytic activity/Vol] 22 U/L Normal 0-31 [facility] Comment on above: Performed By: #### 2 4331-1, CBCA, CMP, TSHR #### [facility] ([id number]) [address], [address] [place] [address] Anion gap [Moles/Vol] 12 mmol/L Normal 5-15 [facility] Comment on above: Performed By: #### 2 4331-1, CBCA, CMP, TSHR #### [facility] ([id number]) [address], [address] [place] [address] AST [Catalytic activity/Vol] 20 U/L Normal 0-41 [facility] Comment on above: Performed By: #### 2 4331-1, CBCA, CMP, TSHR #### [facility] ([id number]) [address], [address] [place] [address] Bilirubin [Mass/Vol] 0.5 mg/dL Normal 0.3-1.2 [facility] Comment on above: Performed By: #### 2 4331-1, CBCA, CMP, TSHR #### [facility] ([id number]) [address], [address] [place] [address] Calcium [Mass/Vol] 9.9 mg/dL Normal 8.5-10.5 [facility] Comment on above: Performed By: #### 2 4331-1, CBCA, CMP, TSHR #### [facility] ([id number]) [address], [address] [place] [address] Chloride [Moles/Vol] 105 mmol/L Normal 98-109 [facility] Comment on above: Performed By: #### 2 4331-1, CBCA, CMP, TSHR #### [facility] ([id number]) [address] [address] [place] [address] CO2 [Moles/Vol] 25 mmol/L Normal 22-32 [facility] Comment on above: Performed By: #### 2 4331-1, CBCA, CMP, TSHR #### [facility] ([id number]) [address] [address] [place] [address] Creatinine [Mass/Vol] 0.74 mg/dL Normal 0.40-1.00 [facility] Comment on above: Result Comment: METH OD TRACEABLE TO IDMS STANDARD Performed By: #### 2 4331-1, CBCA, CMP, TSHR #### [facility] ([id number]) [address] [address] [place] [address] eGFR (CKD-EPI) NON-RACE DEPENDENT >90 Normal >59 [facility] Comment on above: Result Comment: Reported eGFR is based on the CKD-EPI 2020 equation that does not use a race coefficient. Performed By: #### 2 4331-1, CBCA, CMP, TSHR #### [facility] ([id number]) [address] [address] [place] [address] Glucose [Mass/Vol] 143 mg/dL High 65-99 [facility] Comment on above: Performed By: #### 2 4331-1, CBCA, CMP, TSHR #### [facility] ([id number]) [address] [address] [place] [address] Potassium [Moles/Vol] 3.8 mmol/L Normal 3.5-5.0 [facility] Comment on above: Performed By: #### 2 4331-1, CBCA, CMP, TSHR #### [facility] ([id number]) [address] [address] [place] [address] Protein [Mass/Vol] 7.8 g/dL Normal 6.0-8.0 [facility] Comment on above: Performed By: #### 2 4331-1, CBCA, CMP, TSHR #### [facility] ([id number]) [address], [address] [place] [address] Sodium [Moles/Vol] 142 mmol/L Normal 134-146 [facility] Comment on above: Performed By: #### 2 4331-1, CBCA, CMP, TSHR #### [facility] ([id number]) [address], [facility] [address] [place] [address] Urea nitrogen [Mass/Vol] 17 mg/dL Normal 5-23 [facility] Comment on above: Performed By: #### 2 4331-1, CBCA, CMP, TSHR #### [facility] ([id number]) [address], [address] [place] [address] HGB A1C (GLYCO-HGB)on 2023 Glucose [Mass/Vol] 117 mg/dL Normal [facility] Comment on above: Performed By: #### 2 4331-1, CBCA, CMP, TSHR #### [facility] ([id number]) [address], [address] [place] [address] HbA1c (Bld) [Mass fraction] 5.7 % High 4.4-5.6 [facility] Comment on above: Result Comment: NOTE ADA Guidelines Result HgbA1c Normal : less than 5.7 % Prediabetes : 5.7 % to 6.4 % Diabetes : > 6.4 % Use with caution in patients with abnormal hemoglobin variants as the half-life of red blood cells and in vivo glycation rates are affected. Performed By: #### 2 4331-1, CBCA, CMP, TSHR #### [facility] ([id number]) [address], [address] [place] [address] Lipid 1996 panelon 4 Cholesterol [Mass/Vol] 132 mg/dL Low 150-200 [facility] Comment on above: Performed By: #### 2 4331-1, CBCA, CMP, TSHR #### [facility] ([id number]) [address], [address] [place] [address] Cholesterol in HDL [Mass/Vol] 58 mg/dL Normal >39 [facility] Comment on above: Result Comment: HDL <40 mg/dL - High Risk HDL > or = 40mg/dL- Desirable HDL >60 mg/dL - Negative Risk Performed By: #### 2 4331-1, CBCA, CMP, TSHR #### [facility] ([id number]) [address], [address] [place] [address] Cholesterol in LDL [Mass/Vol] 51 mg/dL Normal <130 [facility] Comment on above: Result Comment: LDL <100 mg/dL - Desirable LDL >160 mg/dL - High Risk Performed By: #### 2 4331-1, CBCA, CMP, TSHR #### [facility] ([id number]) [address], [address] [place] [address] Cholesterol in VLDL [Mass/Vol] 23 mg/dL Normal 0-30 [facility] Comment on above: Performed By: #### 2 4331-1, CBCA, CMP, TSHR #### [facility] ([id number]) [address], [address] [place] [address] CHOLESTEROL:HDL 2.3 Normal 1.0-5.0 [facility] Comment on above: Performed By: #### 2 4331-1, CBCA, CMP, TSHR #### [facility] ([id number]) [address], [address] [place] [address] Triglyceride [Mass/Vol] 114 mg/dL Normal 27-150 [facility] Comment on above: Performed By: #### 2 4331-1, CBCA, CMP, TSHR #### [facility] ([id number]) [address] [place] [address] MAMM SCREENING BILATERAL W C care companion 03-16-2023 MAMM SCREENING BILATERAL W CAD MAMM [...] PM 0A a ADDITIONAL I Normal [facility] TSH WITH REFLEXon 03-16-2023 TSH 0.55 uIU/mL Normal 0.49-4.67 [facility] Comment on above: Performed By: #### 2 4331-1, CBCA, CMP, TSHR #### [facility] ([id number]) [address] [facility], [address] [place] [address] PT - Assessmentson 3 PT - Assessments [id number]#1.00CD:12 [address] [facility] [address] - Assessmentson 3 ST - Assessments [id number]#1.00CD:127 Normal [facility] Consenton 09-25-2022 Consent [id number]#1.00CD:127 [facility] Outside Recordson 2022 Outside Records [id number]#1.00CD:[address] [facility] [address] - Orderson 2022 ST - Orders [id number]#1.00CD:[address] [facility] [address] - Orders [id number]#1.00CD:[address] [facility] [address] - Otheron 2022 ST - Other [id number]#1.00CD:127 [facility] PAP ACOG PANEL 2: 30 to 65on 05-27-2022 . . Normal [facility] Comment on above: Result Comment: Perf ormed at: WB Performed By: #### 4 [id number] #### [facility] [address] [place] [address] Dr. Do Aguilar Age Gdln ACOG Testing 30-65 [facility] Comment on above: Performed By: #### 4 [id number] #### [facility] [address] [address] [address] Do Aguilar DIAGNOSIS: Comment [facility] Comment on above: Result Comment: NEGA TIVE FOR INTRAEPITHELIAL LESION OR MALIGNANCY. Performed at: WB Performed By: #### 4 [id number] #### [facility] [address] [place] [address] Dr. Do Aguilar HPV Aptima Negative Normal Negative [facility] Comment on above: Result Comment: This nucleic acid amplification test detects fourteen high-risk HPV types (16,18,31,33,35,39,45,51,52,56,58,59,66,68) without differentiation. Performed at: =G Performed By: #### 4 [id number] #### [facility] [address] [place] [address] Dr. Do Aguilar HPV Genotype Reflex Comment Normal [facility] Comment on above: Result Comment: Crit eria not met, HPV Genotype not performed. Performed at: WB Performed By: #### 4 [id number] #### [facility] [address] [place] [address] Dr. Do Aguilar Methodology: Comment Normal [facility] Comment on above: Result Comment: This liquid based ThinPrep(R) pap test was screened with the use of an image guided system. Performed at: WB Performed By: #### 4 [id number] #### [facility] [address] [place] [address] Dr. Do Aguilar Note: Comment Normal [facility] Comment on above: Result Comment: The Pap smear is a screening test designed to aid in the detection of premalignant and malignant conditions of the uterine cervix. It is not a diagnostic procedure and should not be used as the sole means of detecting cervical cancer. Both false-positive and false-negative reports do occur. . Performed at: WB Performed By: #### 4 [id number] #### [facility] [address] [place] [address] Dr. Do Aguilar Performed by: Comment Normal [facility] Comment on above: Result Comment: Melissa Ramachandran, Still Worker Helper (ASCP) Performed at: WB Performed By: #### 4 [id number] #### [facility] [address] [place] [address] Dr. Do Aguilar Specimen adequacy: Comment Normal [facility] Comment on above: Result Comment: Sati sfactory for evaluation. Endocervical and/or squamous metaplastic cells (endocervical component) are present. Performed at: WB Performed By: #### 4 [id number] #### [facility] [address] [place] [address] Dr. Do Aguilar HEPATITIS C AB CASCADE TO QU ANT PCR GENOon 02-18-2022 HCV AB <0.1 Normal 0.0-0.9 [facility] Comment on above: Performed By: #### H EPCASC #### [facility] [address] [place] [address] Dr. Do Aguilar Interpretation: Comment Normal [facility] Comment on above: Result Comment: Nega tive Not infected with HCV, unless recent infection is suspected or other evidence exists to indicate HCV infection. Performed By: #### H EPCASC #### [facility] [address] [place] [address] Dr. Do Aguilar LIVER PROFILEon 02-17-2022 Albumin [Mass/Vol] 3.6 g/dL Normal 3.4-5.0 [facility] Comment on above: Performed By: #### L IVER #### [facility] [address] [place] [address] Dr. Do Aguilar Albumin/Globulin [Mass ratio] 0.9 {ratio} Normal [facility] Comment on above: Performed By: #### L IVER #### [facility] [address] [place] [address] Dr. Do Aguilar ALP [Catalytic activity/Vol] 79 U/L Normal 46-116 [facility] Comment on above: Performed By: #### L IVER #### [facility] [address] [place] [address] Dr. Do Aguilar ALT [Catalytic activity/Vol] 51 U/L Normal 14-59 [facility] Comment on above: Performed By: #### L IVER #### [facility] [address] [place] [address] Dr. Do Aguilar AST [Catalytic activity/Vol] 33 U/L Normal 15-37 [facility] Comment on above: Performed By: #### L IVER #### [facility] [address] [place] [address] Dr. Do Aguilar BILI, CONJUGATED 0.1 mg/dL Normal 0.0-0.2 [facility] Comment on above: Performed By: #### L IVER #### [facility] [address] [place] [address] Dr. Do Aguilar Bilirubin [Mass/Vol] 0.3 mg/dL Normal 0.2-1.0 [facility] Comment on above: Performed By: #### L IVER #### [facility] [address] [place] [address] Dr. Do Aguilar Globulin (S) [Mass/Vol] 4.2 g/dL Normal [facility] Comment on above: Performed By: #### L IVER #### [facility] [address] [place] [address] Dr. Do Aguilar Protein [Mass/Vol] 7.8 g/dL Normal 6.4-8.2 [facility] Comment on above: Performed By: #### L IVER #### [facility] [address] [place] [address] Dr. Do Aguilar TSHon 02-17-2022 TSH 0.457 uIU/mL Normal 0.358-3.74 0 [facility] Comment on above: Performed By: #### T SH #### [facility] [address] [place] [address] Dr. Do Aguilar VITAMIN B12on 02-17-2022 Cobalamin (Vitamin B12) [Mass/Vol] 1864.0 pg/mL Critically high 193.0-986. 0 [facility] Comment on above: Performed By: #### V ITB12 #### [facility] [address] [place] [address] Dr. Do Aguilar History and Physicalon 12-04 History and Physical [id number]#1.00[facility] Operative Report - Surgeon/P godwin 12-04-2016 Operative Report - Surgeon/Physician [id number]#[facility] C[facility] Summary[facility] 11-26-2016 Coding Summary CODING DATE: 017 FINAL [facility] STATUS: Home PAYOR: Medicaid HMO ADMIT DX: REASON FOR VISIT DX: R10.13 Epigastric pain R10.11 Right upper quadrant pain FINAL DX: PRINCIPAL: K29.70 Gastritis, unspecified, without bleeding SECONDARY: PROCEDURES DOCTOR NAME DATE 77047 Esophagogastroduodenoscopy , Juan Ramon Jean MD 11/21/2016 flexible, transoral; with biopsy, single or multiple NOTE: The code number assigned matches the documented diagnosis and / or procedure in the patient's chart. However, the narrative phrase printed from the coding software may appear abbreviated, or result in slightly different terminology. Coded By: Rosalba Laureano Date Saved: 11/26/2016 01:09 pm [facility] Consent Formson 11-24-2016 Consent Forms [id number]#[facility]00[facility] 2016 Intraoperative Note [id number]#1.00[facility] Intra[facility] Note [id number]#1.00[facility]ative Report - Surgeon/P godwin 11-24-2016 Operative Report - Surgeon/Physician DATE OF PROCEDURE: 11/21/2016PREOPERATIVE DIAGNOSIS: Epigastric pain/right upper quadrant pain.POSTOPERATIVE DIAGNOSIS: Moderate gastritis.PROCEDURE PERFORMED: EGD with biopsy x1 from the antrum of the stomach forH. pylori testing.SURGEON: Juan Ramon Jean M.D.ANESTHESIA: Conscious sedation with Versed 6 mg IV, Demerol 50 mg IV.FINDINGS: As above.DISPOSITION[place] [facility].INDICATIONS: The patient [...] in two weeks.Juan Ramon Jean M.D.JOB #: [id number]: 11/21/2016T: 11/21/2016[Electronically Signed on: 12/03/2016 07:09 EDT] Juan Ramon Jean MD Generated Domain User for [id number][Verified on: 12/03/2016 07:09 EDT] Juan Ramon Jean MD[Transcribed on: 11/21/2016 11:37 EDT][facility] Telemetry Stripson 7 Telemetry Strips [id number]#1.00OTGTIFF [facility] Telemetry Strips [id number]#1.00OTGTIFF [facility] H. Pylori Gastricon 11-22-19 17 H. Pylori Rico Int Ctrl Pass [facility] Comment on above: Order Comment: H. (A NTRUM) Result Comment: Pass Performed By: #### 2 [id number] ####[facility] (DEFAULT)[address] [place] [address] H. Pylori Gastric Negative Normal Negative [facility] Comment on above: Order Comment: H. (A NTRUM) Result Comment: Negcosta tijenaro Performed By: #### 2 [id number] ####[facility] (DEFAULT)[address] [place] [address] Inpatient Clinical Summaryon 11-21-2016 Inpatient Clinical Summary [facility] SURGERYClinical Discharge SummaryPERSON INFORMATIONName KARMA SR Age 36 Years [birth year]/Sex FEMALE Language Prydeinig PCP DEFRANCE, DAVIDMarital Status Med Service Ambulatory SurgeryMRN [id number] Acct# Arrival 11/21/16 07:22:21Visit Reason EGD - EPIGASTRIC ABDOMINAL PAIN Acuity LOS 013 23:19Address:[address] [address]Vmnptjw:PROVIDER INFORMATIONVITALS INFORMATIONVital Sign Triage LatestTemp OralTemp Temporal 36.4 DegC 36.4 DegCTemp IntravascularTemp AxillaryTemp Rdwwmg94 Sat 100 % 97 %Respiratory Rate 16 [...] llow up:With: Address: When:Juan Ramon Jean [address] [place] [address] Business (1) Within 2 to 4 weeksComments:Call for follow up appointmentWith: Address: When:DOMENICA OLIVA [address] [place] [address] [employer] (1)DIAGNOSISAcute gastritisComment:PHYS DOC NOTES Normal [facility] Inpatient Patient Summaryon 11-21-2016 Inpatient Patient Summary [place] [id number] patient Discharge InstructionsName: BRENDON SR: 80 Address: [address] [place] [address] Care Provider:Name: DOMENICA OLIVAPhone: Discharge Diagnosis: Acute [...] or business decisions or sign any legal documentsNewark Hospital would like to thank you for allowing us to assist you with your healthcare needs. The following includes patient education materials and information regarding your injury/illness.KARMA SR has been given the following list of follow-up instructions, prescriptions, and patient education materials:Follow-up InstructionsWith: Address: When:Juan Ramon Jean [address] [place] [id number] [facility] (1) Within 2 to 4 weeksComments:Call for follow up appointmentWith: Address: When:DOMENICA OLIVA [address] [place] [address] [facility] (1)MedicationsDuring the course of your visit, your [...] for Disease Control and Prevention October 2013 [facility] ordon 11-21-2016 [facility] Intraoperative Record [facility] Intra-Op Record Summary Primary Physician: Juan Ramon Jean MD Finalized Date/Time: 11/21/16 08:37:38 Pt. Name: KARMA SR Mary/Sex: 1980 FEMALE Med Rec #: [id number] Physician: Juan Ramon Jean MD Financial #: [id number] Pt. Type: D Room/Bed: / Admit/Disch: 11/21/16 [...] Jane RN Role Performed Surgeon - Primary Fingernail Former Fingernail Former Time In 11/21/16 08:06:00 11/21/16 08:06:00 11/21/16 [...] Unfinalizing Freetext Reason for Unfinalizing 11/21/16 08:37 [facility] Endo Postoperative Benjamin rdon 11-21-2016 [facility] Postoperative Record [facility] Phase II Record Summary Primary Physician: Juan Ramon Jean MD Finalized Date/Time: 11/21/16 10:02:07 Pt. Name: KARMA SR/Sex: 1980 FEMALE Med Rec #: [id number] Physician: Juan Ramon Jean MD Financial #: [id number] Pt. Type: D Room/Bed: / Admit/Disch: 11/21/16 [...] Signed By: Cammy Barroso RN 11/21/16 10:02 [facility] Endo Preoperative Recor don 11-21-2016 [facility] Preoperative Record [facility] Pre-Op Record Summary Primary Physician: Juan Ramon Jean MD Finalized Date/Time: 11/21/16 08:27:58 Pt. Name: KARMA SR/Sex: 1980 FEMALE Med Rec #: [id number] Physician: Juan Ramon Jean MD Financial #: [id number] Pt. Type: D Room/Bed: / Admit/Disch: 11/21/16 [...] Signed By: Cammy Barroso RN 11/21/16 08:27 [facility] Test Urine 1on U Preg Negative [facility] Comment on above: Result Comment: Nega tive Performed By: #### [id number] ####[facility] (DEFAULT)[address] [place] [address] U Preg Internal Control Pass [facility] Comment on above: Result Comment: Pass Performed By: #### 3 [id number] ####[facility] (DEFAULT)[address] [place] [id number] Vital Signs Date Time Vital Sign Value Performing Clinician Facility 06-02-2023 14:32-0400 Body mass index (BMI) [Ratio] 36.67 kg/m2 Deepika Robledo MD Work Phone: [facility] 06-02-2023 14:32-0400 Body weight 93.89 kg Deepika Robledo MD Work Phone: [facility] 06-02-2023 14:32-0400 Diastolic blood pressure 102 mm[Hg] Deepika Robledo MD Work Phone: [facility] 06-02-2023 14:32-0400 Heart rate 83 /min Deepika Robledo MD Work Phone: [facility] 06-02-2023 14:32-0400 Systolic blood pressure 136 mm[Hg] Deepika Robledo MD Work Phone: [facility] 05-21-2023 11:22-0400 Body height 160.02 cm [facility] 05-21-2023 11:22-0400 Body mass index (BMI) [Ratio] 36.5 kg/m2 [facility] 05-21-2023 11:22-0400 Body weight 93.44 kg [facility] 05-21-2023 10:39-0400 Body height 160.02 cm [facility] 05-21-2023 10:39-0400 Body mass index (BMI) [Ratio] 36.5 kg/m2 [facility] 05-21-2023 10:39-0400 Body weight 93.49 kg [facility] 05-21-2023 10:39-0400 Diastolic blood pressure 77 mm[Hg] [facility] 05-21-2023 10:39-0400 Heart rate 105 /min [facility] 05-21-2023 10:39-0400 Respiratory rate 18 /min [facility] 05-21-2023 10:39-0400 SaO2% (BldA) [Mass fraction] 95 % [facility] 05-21-2023 10:39-0400 Systolic blood pressure 114 mm[Hg] [facility] 04-28-2023 11:21-0500 Body height 160 cm Gaurav CALVO Work Phone: [facility] 04-28-2023 11:21-0500 Body mass index (BMI) [Ratio] 36.14 kg/m2 Gaurav CALVO Work Phone: [facility] 04-28-2023 11:21-0500 Body weight 92.53 kg aGurav CALVO Work Phone: [facility] 04-28-2023 11:21-0500 Diastolic blood pressure 82 mm[Hg] [facility] CALVO [facility] 04-28-2023 11:21-0500 Heart rate 87 /min Gaurav Sellers PA [facility] 04-28-2023 11:21-0500 Respiratory rate 16 /min Gaurav Sellers PA [facility] 04-28-2023 11:21-0500 SaO2% (BldA) [Mass fraction] 97 % Gaurav Sellers PA [facility] 04-28-2023 11:21-0500 Systolic blood pressure 122 mm[Hg] Gaurav Sellers PA [facility] 04-20-2023 12:41-0500 Body mass index (BMI) [Ratio] 36.49 kg/m2 Shawna Rumschlag DO Work Phone: [employer] 04-20-2023 12:41-0500 Body weight 93.44 kg Shawna Rumschlag DO Work Phone: [employer] 04-20-2023 12:41-0500 Diastolic blood pressure 76 mm[Hg] Shawna Rumschlag DO Work Phone: [employer] 04-20-2023 12:41-0500 Heart rate 83 /min Shawna Rumschlag DO Work Phone: [employer] 04-20-2023 12:41-0500 Respiratory rate 16 /min Shawna Rumschlag DO Work Phone: [employer] 04-20-2023 12:41-0500 SaO2% (BldA) [Mass fraction] 98 % Shawna Rumschlag DO Work Phone: [employer] 04-20-2023 12:41-0500 Systolic blood pressure 129 mm[Hg] Shawna Rumschlag DO Work Phone: [employer] 04-20-2023 12:39-0500 Body temperature 97.3 [degF] Shawna Mcfadden DO Work Phone: [facility] 03-18-2023 11:30-0500 Diastolic blood pressure 84 mm[Hg] MD Yo Blank Work Phone: [facility] 03-18-2023 11:30-0500 Heart rate 95 /min MD Yo Blank Work Phone: [facility] 03-18-2023 11:30-0500 Respiratory rate 16 /min MD Yo Blank Work Phone: [facility] 03-18-2023 11:30-0500 SaO2% (BldA) [Mass fraction] 99 % MD Yo Blank Work Phone: [facility] 03-18-2023 11:30-0500 Systolic blood pressure 123 mm[Hg] MD Yo Blank Work Phone: [facility] 03-05-2023 09:15-0500 Body height 160.02 cm Gayathri Scally Other [facility] Other 03-05-2023 09:15-0500 Body mass index (BMI) [Ratio] 37.57 kg/m2 Gayathri Scally Other [facility] Other 03-05-2023 09:15-0500 Body weight 96.21 kg Gayathri Scally Other [facility] Other 03-05-2023 09:15-0500 Diastolic blood pressure 89 mm[Hg] Gayathri Scally Other [facility] Other 03-05-2023 09:15-0500 Respiratory rate 18 /min Gayathri Scally Other [facility] Other 03-05-2023 09:15-0500 SaO2% (BldA) [Mass fraction] 96 % Gayathri Adams Other [facility] Other 03-05-2023 09:15-0500 Systolic blood pressure 122 mm[Hg] Gayathri Adams Other [facility] Other 03-02-2023 19:24-0500 Body height 160 cm Sil Sullivan DO Work Phone: [employer] 03-02-2023 19:24-0500 Body mass index (BMI) [Ratio] 36.31 kg/m2 Sil Sullivan DO Work Phone: [employer] 03-02-2023 19:24-0500 Body temperature 98.29 [degF] Sil Sullivan DO Work Phone: [employer] 03-02-2023 19:24-0500 Body weight 92.99 kg Sil Sullivan DO Work Phone: [employer] 03-02-2023 19:24-0500 Diastolic blood pressure 98 mm[Hg] Sil Sullivan DO Work Phone: [employer] 03-02-2023 19:24-0500 Heart rate 82 /min Sil Sullivan DO Work Phone: [employer] 03-02-2023 19:24-0500 Respiratory rate 18 /min Sil Sullivan DO Work Phone: [employer] 03-02-2023 19:24-0500 SaO2% (BldA) [Mass fraction] 98 % Sil Sullivan DO Work Phone: [employer] 03-02-2023 19:24-0500 Systolic blood pressure 139 mm[Hg] Sil Sullivan DO Work Phone: [employer] 02-05-2023 09:20-0500 Body height 160.02 cm Ajn Scovanner Other [facility] Other 02-05-2023 09:20-0500 Body mass index (BMI) [Ratio] 36.66 kg/m2 Jan Scovanner Other [facility] Other 02-05-2023 09:20-0500 Body weight 93.9 kg Jan Scovanner Other [facility] Other 01-15-2023 09:45-0500 Body height 160.02 cm Gayathri Scally Other [facility] Other 01-15-2023 09:45-0500 Body mass index (BMI) [Ratio] 36.68 kg/m2 Gayathri Scally Other [facility] Other 01-15-2023 09:45-0500 Body weight 93.94 kg Gayathri Scally Other [facility] Other 01-15-2023 09:45-0500 Diastolic blood pressure 83 mm[Hg] Gayathri Scally Other [facility] Other 01-15-2023 09:45-0500 Respiratory rate 18 /min Gayathri Scally Other [facility] Other 01-15-2023 09:45-0500 SaO2% (BldA) [Mass fraction] 99 % Gayathri Scally Other [facility] Other 01-15-2023 09:45-0500 Systolic blood pressure 119 mm[Hg] Gayathri Scally Other [facility] Other 01-07-2023 10:00-0500 Body height 160.02 cm Jan Scovanner Other [facility] Other 01-07-2023 10:00-0500 Body mass index (BMI) [Ratio] 36.13 kg/m2 Jan Scovanner Other [facility] Other 01-07-2023 10:00-0500 Body weight 92.53 kg Jan Scovanner Other [facility] Other 01-07-2023 10:00-0500 Diastolic blood pressure 74 mm[Hg] Jan Scovanner Other [facility] Other 01-07-2023 10:00-0500 Systolic blood pressure 118 mm[Hg] Jan Scovanner Other [facility] Other 08-28-2022 09:00-0400 Body height 160.02 cm Tamar Fitt Other [facility] Other 08-28-2022 09:00-0400 Body mass index (BMI) [Ratio] 35.8 kg/m2 Tamar Fitt Other [facility] Other 08-28-2022 09:00-0400 Body weight 91.67 kg Tamar Fitt Other [facility] Other 07-29-2022 10:15-0400 Body height 160.02 cm Gayathri Scally Other [facility] Other 07-29-2022 10:15-0400 Body mass index (BMI) [Ratio] 35.18 kg/m2 Gayathri Scally Other [facility] Other 07-29-2022 10:15-0400 Body weight 90.08 kg Gayathri Scally Other [facility] Other 07-29-2022 10:15-0400 Diastolic blood pressure 84 mm[Hg] Gayathri Scally Other [facility] Other 07-29-2022 10:15-0400 Respiratory rate 18 /min Gayathri Scally Other [facility] Other 07-29-2022 10:15-0400 SaO2% (BldA) [Mass fraction] 99 % Gayathri Scally Other [facility] Other 07-29-2022 10:15-0400 Systolic blood pressure 127 mm[Hg] Gayathri Scally Other [facility] Other 05-20-2022 11:15-0400 Body height 160.02 cm Gayathir Scally Other [facility] Other 05-20-2022 11:15-0400 Body mass index (BMI) [Ratio] 34.52 kg/m2 Gayathri Scally Other [facility] Other 05-20-2022 11:15-0400 Body weight 88.41 kg Gayathri Scally Other [facility] Other 05-20-2022 11:15-0400 Diastolic blood pressure 82 mm[Hg] Gayathri Scally Other [facility] Other 05-20-2022 11:15-0400 Respiratory rate 18 /min Gayathri Scally Other [facility] Other 05-20-2022 11:15-0400 SaO2% (BldA) [Mass fraction] 97 % Gayathri Scally Other [facility] Other 05-20-2022 11:15-0400 Systolic blood pressure 121 mm[Hg] Gayathri Scally Other [facility] Other 04-08-2022 11:15-0500 Body height 160.02 cm Gayathri Scally Other [facility] Other 04-08-2022 11:15-0500 Body mass index (BMI) [Ratio] 34.49 kg/m2 Gayathri Scally Other [facility] Other 04-08-2022 11:15-0500 Body weight 88.32 kg Gayathri Scally Other [facility] Other 04-08-2022 11:15-0500 Diastolic blood pressure 77 mm[Hg] Gayathri Scally Other [facility] Other 04-08-2022 11:15-0500 Respiratory rate 18 /min Gayathri Scally Other [facility] Other 04-08-2022 11:15-0500 SaO2% (BldA) [Mass fraction] 98 % Gayathri Scally Other [facility] Other 04-08-2022 11:15-0500 Systolic blood pressure 110 mm[Hg] Gayathri Scally Other [facility] Other 04-08-2022 10:15-0500 Body height 160.02 cm Tamar Fitt Other [facility] Other 04-08-2022 10:15-0500 Body mass index (BMI) [Ratio] 34.49 kg/m2 Tamar Fitt Other [facility] Other 04-08-2022 10:15-0500 Body weight 88.32 kg Tamar Fitt Other [facility] Other 02-26-2022 10:00-0500 Body height 160.02 cm Tamar Fitt Other [facility] Other 02-25-2022 11:45-0500 Body height 160.02 cm Gayathri Scally Other [facility] Other 02-25-2022 11:45-0500 Body mass index (BMI) [Ratio] 36.63 kg/m2 Gayathri Scally Other [facility] Other 02-25-2022 11:45-0500 Body weight 93.8 kg Gayathri Scally Other [facility] Other 02-25-2022 11:45-0500 Diastolic blood pressure 78 mm[Hg] Gayathri Scally Other [facility] Other 02-25-2022 11:45-0500 Respiratory rate 18 /min Gayathri Scally Other [facility] Other 02-25-2022 11:45-0500 SaO2% (BldA) [Mass fraction] 97 % Gayathri Scally Other [facility] Other 02-25-2022 11:45-0500 Systolic blood pressure 109 mm[Hg] Gayathri Scally Other [facility] Other 01-14-2022 11:45-0500 Body height 160.02 cm Gayathri Scally Other [facility] Other 01-14-2022 11:45-0500 Body mass index (BMI) [Ratio] 39.37 kg/m2 Gayathri Scally Other [facility] Other 01-14-2022 11:45-0500 Body weight 100.84 kg Gayathri Scally Other [facility] Other 01-14-2022 11:45-0500 Diastolic blood pressure 88 mm[Hg] Gayathri Scally Other [facility] Other 01-14-2022 11:45-0500 Respiratory rate 18 /min Gayathri Scally Other [facility] Other 01-14-2022 11:45-0500 SaO2% (BldA) [Mass fraction] 97 % Gayathri Scally Other [facility] Other 01-14-2022 11:45-0500 Systolic blood pressure 124 mm[Hg] Gayathri Scally Other [facility] Other 12-04-2021 12:00-0400 Body height 160.02 cm Gayathri Scally Other [facility] Other 12-04-2021 12:00-0400 Body mass index (BMI) [Ratio] 39.73 kg/m2 Gayathri Scally Other [facility] Other 12-04-2021 12:00-0400 Body weight 101.74 kg Gayathri Scally Other [facility] Other 12-04-2021 12:00-0400 Diastolic blood pressure 74 mm[Hg] Gayathri Scally Other [facility] Other 12-04-2021 12:00-0400 Respiratory rate 18 /min Gayathri Scally Other [facility] Other 12-04-2021 12:00-0400 SaO2% (BldA) [Mass fraction] 95 % Gayathri Scally Other [facility] Other 12-04-2021 12:00-0400 Systolic blood pressure 110 mm[Hg] Gayathri Scally Other [facility] Other 10-29-2021 11:30-0400 Body height 160.02 cm Yo Blank Other [facility] Other 10-29-2021 11:30-0400 Body mass index (BMI) [Ratio] 38.61 kg/m2 Yo Blank Other [facility] Other 10-29-2021 11:30-0400 Body weight 98.88 kg Yo Blank Other [facility] Other 10-29-2021 11:30-0400 Diastolic blood pressure 74 mm[Hg] Yo Blank Other [facility] Other 10-29-2021 11:30-0400 Systolic blood pressure 111 mm[Hg] Yo Blank Other [facility] Other 10-22-2021 13:26-0400 Body temperature 97.2 [degF] Shawna Rumschlag DO Work Phone: [employer] 10-22-2021 13:26-0400 Diastolic blood pressure 71 mm[Hg] Shawna Rumschlag DO Work Phone: [employer] 10-22-2021 13:26-0400 Heart rate 85 /min Shawna Rumschlag DO Work Phone: [employer] 10-22-2021 13:26-0400 Respiratory rate 16 /min Shawna Rumschlag DO Work Phone: [employer] 10-22-2021 13:26-0400 SaO2% (BldA) [Mass fraction] 94 % Shawna Rumschlag DO Work Phone: [employer] 10-22-2021 13:26-0400 Systolic blood pressure 131 mm[Hg] Shawna Rumschlag DO Work Phone: [employer] 10-11-2021 23:48-0400 Body height 160 cm Daniel Adkins MD Work Phone: [employer] 10-11-2021 23:48-0400 Body mass index (BMI) [Ratio] 36.67 kg/m2 Daniel Adkins MD Work Phone: [employer] 10-11-2021 23:48-0400 Body temperature 98.6 [degF] Daniel Adkins MD Work Phone: [employer] 10-11-2021 23:48-0400 Body weight 93.89 kg Daniel Adkins MD Work Phone: [employer] 10-11-2021 23:48-0400 Diastolic blood pressure 88 mm[Hg] Daniel Adkins MD Work Phone: [facility] [employer] [facility] 10-11-2021 23:48-0400 Heart rate 97 /min Daniel Adkins MD [facility] 10-11-2021 23:48-0400 Respiratory rate 16 /min Daniel Adkins MD [facility] 10-11-2021 23:48-0400 SaO2% (BldA) [Mass fraction] 96 % Daniel Adkins MD Work Phone: [facility] [employer] [facility] 10-11-2021 23:48-0400 Systolic blood pressure 134 mm[Hg] Daniel Adkins MD Work Phone: [facility] [employer] [facility] Encounters Encounter Date Encounter Type Care Provider Facility Start: 12-01-2023 ambulatory [facility] Start: 10-20-2023 End: 10-20-2023 ambulatory [facility] Start: 10-20-2023 End: 10-20-2023 Subsequent hospital visit by physician Jan Olmstead [facility] Comment on above: Arrived Start: 10-08-2023 End: 10-08-2023 ambulatory DWAYNEDAVINA PALMER [facility] Start: 10-06-2023 End: 10-07-2023 Emergency department patient visit [facility] Start: 10-05-2023 End: 10-05-2023 Emergency department patient visit [facility] Start: 10-05-2023 End: 10-05-2023 Emergency department patient visit [facility] Start: 09-22-2023 End: 09-22-2023 Subsequent hospital visit by physician Jan Olmstead [facility] Start: 09-15-2023 End: 09-15-2023 [facility] Start: 09-07-2023 End: 09-07[facility]20[facility] Start: 09-01-2023 End: 09-01-2023 ambulatory SHAWNA RUMSCHELIZABETHG [facility] Start: 08-26-2023 End: 08-26-2023 ambulatory SHAWNA RUMSCHELIZABETHG [facility] Start: 08-26-2023 End: 08-26-2023 Subsequent hospital visit by physician Kofi Villegas PT [facility] Physical Therapy Comment on above: Arrived Start: 08-21-2023 End: 08-21-2023 ambulatory SHAWNA BOGDAN [facility] Start: 08-21-2023 End: 08-21-2023 Subsequent hospital visit by physician Jan Olmstead PT [facility] Physical Therapy Comment on above: Arrived Start: 08-13-2023 End: 08-13-2023 ambulatory LAILA LIEBERMAN Not Available Start: 08-11-2023 End: 08-11-2023 ambulatory SHAWNA BOGDAN [facility] Start: 08-11-2023 End: 08-11-2023 Subsequent hospital visit by physician Jan Olmstead PT [facility] Physical Therapy Comment on above: Arrived Start: 08-04-2023 End: 08-04-2023 ambulatory SHAWNA BOGDAN [facility] Start: 07-29-2023 End: 07-29-2023 ambulatory SHAWNA EDWARG [facility] Start: 07-14-2023 End: 07-14-2023 Subsequent hospital visit by physician Rebecca Skinner PT [facility] Physical Therapy Start: 07-07-2023 End: 07-07-2023 ambulatory SHAWNA RUMNAFISAG [facility] Start: 06-30-2023 End: 06-30-2023 ambulatory SHAWNA RUMSCHELIZABETHG [facility] Start: 06-17-2023 End: 06-17-2023 ambulatory SHAWNA RUMSCHLAG [facility] Start: 06-16-2023 End: 06-16-2023 ambulatory SHAWNA RUMSCHLAG [facility] Start: 06-04-2023 End: 06-04-2023 ambulatory SHAWNA RUMSCHLAG [facility] Start: 06-03-2023 End: 06-03-2023 ambulatory SHAWNA K [facility] Start: 06-02-2023 End: 06-02-2023 Office outpatient new 30 minutes Deepika Robledo MD Work Phone: [facility] Comment on above: Mass of upper outer quadrant of right breast (Primary Dx); Abnormal mammogram; Symptomatic mammary hypertrophy Start: 06-02-2023 End: 06-02-2023 ambulatory DEEPIKA ROBLEDO [facility] Start: 06-02-2023 ambulatory SHAWNA VANN [facility] Start: 05-25-2023 End: 05-25-2023 ambulatory ALICIA PRESTON Not Available Start: 05-21-2023 End: 05-21-2023 Patient encounter procedure [facility] Gastroenterology Work Phone: Start: 05-21-2023 End: 05-21-2023 Patient encounter [facility] Work Phone: Start: 05-20-2023 End: 05-20-2023 ambulatory SHAWNA BOGDAN [facility] Start: 05-19-2023 End: 05-19-2023 ambulatory SHAWNA BOGDAN [facility] Start: 05-12-2023 Telephone encounter Deepika Robledo MD Work Phone: [facility] Start: 05-06-2023 End: 05-06-2023 ambulatory SHAWNA EDWARG [facility] Start: 05-06-2023 End: 05-06-2023 Subsequent hospital visit by physician Rojas Altamirano [facility] Physical [facility] Comment on above: Arrived Start: 05-05-2023 End: 05-05-2023 ambulatory SHAWNA RUMSCHLAG [facility] Start: 04-30-2023 Emery Fulton RN [facility] Start: 04-28-2023 End: 04-28-2023 ambulatory GAURAV SELLERS [facility] Start: 04-28-2023 End: 04-28-2023 Office outpatient visit 25 minutes Gaurav CALVO Work Phone: [facility] Comment on above: 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 (Primary Dx) Start: 04-21-2023 End: 04-21-2023 [facility] Start: 04-20-2023 End: 04-20-2023 Emergency department patient visit [facility] ED Comment on above: Closed head injury, initial encounter (Primary Dx); Fall due to slipping on ice or snow, initial encounter; Acute cervical myofascial strain, initial encounter Start: 04-16-2023 ambulatory Myrtle Cerna Facility: [facility] Start: 04-07-2023 End: 04-07-2023 ambulatory [facility] Start: 03-31-2023 Emery Clay RN [facility] Start: 03-27-2023 End: 03-27-2023 ambulatory PETE SILVER [facility] Start: 03-24-2023 End: 03-24-2023 [facility] Start: 03-19-2023 End: 03-19-2023 ambulatory GABY Churchill SHAYLEE Not Available Start: 03-18-2023 Telephone encounter Jan Peterson [facility] Start: 03-18-2023 End: 03-18-2023 ambulatory NON STAFF [facility] [email or web address] Other Start: 03-18-2023 Non-patient / Non-visit MD Yo Blank Work Phone: [facility] Gastroenterology Work Phone: Start: 03-17-2023 End: 03-17-2023 ambulatory Jan Garg Other [place] [employer] Other Start: 03-17-2023 Telephone encounter Jan Peterson [facility] Start: 03-16-2023 Encounter for genera l adult medical examination without abnormal findings [facility] Start: 03-16-2023 End: 03-16-2023 ambulatory RORY DRIVER [facility] Start: 03-16-2023 End: 03-16-2023 ambulatory LULY ENGLISH Not Available Start: 03-10-2023 End: 03-10-2023 ambulatory [facility] Start: 03-10-2023 End: 03-10-2023 Subsequent hospital visit by physician Tamar Silveira PT [facility] Physical Therapy Comment on above: Arrived Start: 03-05-2023 (FCCCWMNF/U) Weight Management f/u [facility] Start: 03-05-2023 End: 03-05-2023 ambulatory [facility] [email or web address] Other Start: 03-05-2023 Registered Recurring MD Monserrat Blank Work Phone: [facility] Work Phone: Start: 03-02-2023 End: 03-02-2023 Emergency department patient visit Sil Sullivan DO Work Phone: [facility] ED Comment on above: Constipation, unspec ified constipation type (Primary Dx) Start: 02-26-2023 End: 02-26-2023 ambulatory Jan Garg Other [facility] Other Start: 02-26-2023 Telephone encounter Jan Peterson [facility] Start: 02-20-2023 Telephone encounter Argenis Storm RN [facility] Comment on above: Medication, DME Start: 02-18-2023 End: 02-18-2023 ambulatory Jan Garg Other [facility] Other Start: 02-18-2023 Telephone encounter Jan Peterson [facility] Start: 02-10-2023 Telephone encounter Margaux Olea CST [facility] Start: 02-05-2023 End: 02-05-2023 ambulatory Jan Garg Other [facility] Other Start: 02-05-2023 Office outpatient visit 15 minutes Jan aGrg [facility] Gastroenterology Start: 01-15-2023 [facility] Management f/u Gayathri Adams [facility] Start: 01-15-2023 End: 01-15-2023 ambulatory Gayathri Adams Other [facility] Other Start: 01-07-2023 End: 01-07-2023 ambulatory Jan Garg Other [facility] Other Start: 01-07-2023 Office outpatient visit 15 minutes Jan Garg [facility] Gastroenterology Start: 09-25-2022 End: 01-16-2023 ambulatory SHAKE LOADER YUE GRANADO Facility:[facility] Start: 09-25-2022 End: 01-15-2023 Recurring YUE GRANADO [facility] Start: 09-17-2022 End: 09-17-2022 ambulatory Gayathri Adams Other [facility] Other Start: 09-17-2022 Telephone encounter Gayathri Adams [facility] Start: 08-28-2022 ([facility] RD FU) [facility] F/ U [facility] Medical Imaging Technician Tamar Sosa [facility] Start: 08-28-2022 End: 08-28-2022 ambulatory Tamar Sosa Other [facility] Other Start: 07-29-2022 [facility] Weight Management f/u Gayathri Adams [facility] Start: 07-29-2022 End: 07-29-2022 ambulatory Gayathri Adams Other [facility] Other Start: 05-20-2022 [facility] Weight Management f/u Gayathri Adams [facility] Start: 05-20-2022 End: 05-20-2022 ambulatory Gayathri Adams Other [facility] Other Start: 05-19-2022 End: 05-19-[address] ALICIA PRESTON . Facility:[facility] Start: 05-07-2022 End: 05-08-[address] DOCTOR ARREOLA Facility:[facility] Start: 04-09-2022 End: 04-09-2022 ambulatory Gayathri Adams Other [facility] Other Start: 04-09-2022 Telephone encounter Gayathri Adams [facility] Start: 04-08-2022 ([facility] WMNI) WMN Initial Provider Tamar Sosa [facility] Start: 04-08-2022 [facility] Weight Management f/u Gayathri Adams [facility] Start: 04-08-2022 End: 04-08-2022 ambulatory Tamar Fitt Other [facility] Other Start: 02-26-2022 End: 02-26-2022 ambulatory Tamar Fitt Other [facility] Other Start: 02-26-2022 IBT FOR OBESITY GROU P 2-10 30M Tamar Sosa [facility] Start: 02-25-2022 [facility] Weight Management f/u Gayathri Adams [facility] Start: 02-25-2022 End: 02-25-2022 ambulatory Gayathri Adams Other [facility] Other Start: 02-17-2022 End: 02-18-2022 ambulatory RORY DRIVER Facility:[facility] Start: 01-29-2022 End: 01-30-2022 ambulatory JOY ARAMBULA Facility: Start: 01-14-2022 (FCCCWMNF/U) Weight Management f/u Gayathri Adams [facility] Start: 01-14-2022 End: 01-14-2022 ambulatory Gayathri Adams Other [facility] Other Start: 12-05-2021 End: 12-05-2021 ambulatory Gayathri Adams Other [facility] Other Start: 12-05-2021 Telephone encounter Gayathri [facility] Start: 12-04-2021 End: 12-04-2021 ambulatory Gayathri Adams Other [facility] Other Start: 12-04-2021 Nutrition therapy Gayathri Adams [facility] Start: 10-29-2021 End: 10-29-2021 ambulatory Yo Blank Other [facility] Other Start: 10-29-2021 Patient encounter procedure Yo Blank [facility] Gastroenterology Start: 10-22-2021 End: 10-22-2021 Emergency department patient visit Shawna Bogdan MARQUEZ Work Phone: [facility] ED Comment on above: Acute diffuse otitis externa of left ear (Primary Dx) Start: 10-11-2021 End: 10-12-2021 Emergency department patient visit Daniel Adkins MD Work Phone: [facility] Comment on above: Pilonidal cyst (Prim romero Dx) Start: 11-21-2016 End: 11-26-2016 [facility] Procedures Date Procedure Procedure Detail Performing Clinician Start: 05-25-2023 Microscopic observat ion [Identifier] in Cervix by Cyto stain Deepika Robledo MD Work Phone: Start: 04-20-2023 Ct cervical spine w/ o contrast material M Octavio Urbina [employer]AR FIELD SERVICE TECHNICIAN - SHAKE LOADER Work Phone: Start: 04-20-2023 Ct head/brain w/o co ntrast material Precious Urbina SOLAR FIELD SERVICE TECHNICIAN - SHAKE LOADER Work Phone: Start: 05-02-2022 Microalbumin [Mass/v olume] in Urine by Test strip Patricia Clay RN Start: 05-02-2020 Adult depression scr eening assessment Argenis Storm RN Start: 08-30-2016 Cholecystectomy YUE PARISH Start: 01-03-2013 nasal surgery YUE ALVARENGA RS Tonsillectomy YUE GRANADO Plan of Treatment Date Care Activity Detail Author Start: 05-24-2026 Screening for malignant neoplasm of cervix Pap Smear [facility] Start: 03-16-2025 Screening for malignant neoplasm of breast Breast cancer screen [facility] Start: 06-01-2024 Adult BMI Screening Adult BMI Screen ing [facility] Start: 04-28-2024 Adult BMI Screening Adult BMI Screen ing [facility] Start: 04-28-2024 Tobacco Screening Tobacco Screening [facility] Start: 03-16-2024 Adult BMI Screening Adult BMI Screen ing [facility] Start: 01-30-2024 Adult BMI Screening Adult BMI Screen ing [facility] Start: 01-30-2024 Tobacco Screening Tobacco Screening [facility] Start: 11-01-2023 Influenza vaccination Influenza Vacc ine [facility] Start: 10-08-2023 End: 10-08-2023 Patient encounter procedure 10/08/2023 9:00 AM EDT Office Visit [facility] [address] [facility] [address] [place] [address] Dwayne Khoury MD [address] [place] [address] [facility] Start: 10-01-2023 Influenza vaccination [facility] (# [facility] Start: 09-01-2023 End: 09-01-2023 Patient encounter procedure 09/01/2023 10:30 AM EDT Appointment [facility] Physical Therapy [address] [place] [phone] Osito Rowan [facility] Physical Therapy Start: 08-26-2023 End: 08-26-2023 Patient encounter procedure 08/26/2023 2:30 PM EDT Appointment [facility] Physical Therapy [address] [place] [phone] Kofi Villegas, PT [facility] Start: 08-18-2023 End: 08-18-2023 Patient encounter procedure 08/18/2023 9:45 AM EDT Appointment [facility] Physical Therapy [address] [place] [phone] Osito Rowan [facility] Physical [facility] Start: 08-11-2023 End: 08-11-2023 Patient encounter procedure 08/11/2023 1:15 PM EDT Appointment [facility] Physical Therapy [address] [place] [phone] Jan Olmstead, PT DRY NEEDLING [facility] Physical Therapy Comment on above: DRY NEEDLING Start: 08-04-2023 End: 08-04-2023 Patient encounter procedure 08/04/2023 4:15 PM EDT Appointment [facility] Physical Therapy [address] [place] [phone] Osito Rowan [facility] Physical Therapy Start: 06-03-2023 End: 06-03-2023 Patient encounter procedure 06/03/2023 3:30 PM EDT Appointment [facility] Physical Therapy [address] [place] [phone] Osito Rowan [facility] Start: 06-02-2023 End: 06-02-2023 Patient encounter procedure [facility] Physical Therapy Comment on above: DRY NEEDLING- jd gibson coordinates with son's appt Start: 05-23-2023 Hepatitis B vaccine (3 of 3 - Hep B Twinrix 3-dose series) Hepatitis B vaccine (3 of 3 - Hep B Twinrix 3-dose series) [facility] Start: 05-20-2023 End: 05-20-2023 Patient encounter procedure 05/20/2023 3:15 PM EDT Appointment [facility] Physical Therapy [address] [place] [phone] Rojas Altamirano PTA [facility] Start: 05-19-2023 End: 05-19-2023 Patient encounter procedure 05/19/2023 12:45 PM EDT Appointment [facility] Physical [facility] [address] [place] [phone] Rebecca Skinner, [place] DRY NEEDLING- dont move coordinates with son's apptDRY NEEDLING [facility] Physical Therapy Comment on above: DRY NEEDLING- dont m ove coordinates with son's apptDRY NEEDLING Start: 05-05-2023 End: 05-05-2023 Patient encounter procedure [facility] Physical Therapy Comment on above: DRY NEEDLING DRY NEEDLING- dont m ove coordinates with son's appt Start: 05-03-2023 Urine screening for protein Urine Microalbumin [facility] Start: 04-28-2023 End: 04-28-2023 Patient encounter procedure 04/28/2023 10:45 AM EST Office Visit [facility] [address] [place] [phone] Gaurav Sellers PA [address] [place] [address] [facility] Start: 04-21-2023 End: 04-21-2023 Patient encounter procedure [facility] Physical Therapy Comment on above: DRY NEEDLING DRY NEEDLING- dont m ove coordinates with son's appt Start: 04-07-2023 End: 04-07-2023 Patient encounter procedure 04/07/2023 2:15 PM EST Appointment [facility] Physical [facility] [address] [place] [phone] Rebecca Skinner PT DRY NEEDLING [facility] Physical Therapy Comment on above: DRY NEEDLING Start: 03-27-2023 End: 03-27-2023 Admission to same day surgery center 03/27/2023 1:27 PM EST - 03/27/2023 1:33 PM EST Surgery [facility] Procedures [address] [place] [phone] Pete Silver MD [address] [place], [place] [phone] INJECTION BLOCK SACROILIAC JOINT [08747 (CPT )] [facility] Procedures Comment on above: INJECTION BLOCK SACR OILIAC JOINT [45595 (CPT )] Start: 03-27-2023 End: 03-27-2023 Inject si joint arthrgrphy&/anes/ster oid w/monika INJECTION BLOCK SACROILIAC JOINT Disorder of sacrum 03/27/2023 1:27 PM EST [facility] Start: 03-27-2023 Subsequent hospital visit by physician 03/27/2023 1:27 PM EST Hospital Encounter [facility] [address] [place] [phone] Pete Silver MD [address] [place], [place] [phone] [facility] Procedures Start: 03-24-2023 End: 03-24-2023 Patient encounter procedure 03/24/2023 2:15 PM EST Appointment [facility] Physical Therapy [address] [place] [phone] Rebecca Skinner, PT DRY NEEDLING [facility] Physical Therapy Comment on above: DRY NEEDLING Start: 03-19-2023 [facility] Start: 03-16-2023 End: 03-16-2023 Patient encounter procedure 03/16/2023 11:45 AM EST Appointment [facility] - Mammogram DEXA [address] [place] [phone] [facility] Start: 03-10-2023 End: 03-10-2023 Patient encounter procedure 03/10/2023 2:30 PM EST Appointment [facility] Physical Therapy [address] [place] [address] [phone] Rebecca Skinner, PT [facility] Start: 09-30-2022 Influenza vaccination Flu vaccine (# 1) [facility] Start: 10-31-2021 Influenza vaccination Flu vaccine (# 1) [facility] Start: 09-03-2021 DTaP,Tdap and Td Vaccines (1 - Tdap) DTaP,Tdap and Td Vaccines (1 - Tdap) [facility] Start: 09-03-2021 DTaP/Tdap/Td vaccine (1 - Tdap) DTaP/Tdap/Td vaccine (1 - Tdap) [facility] Start: 05-02-2021 [facility] Start: 2020 Lipid panel [facility] Start: 01-04-2020 Diabetic foot examination Diabetic Foot Exam [facility] Start: 09-25-2015 Diabetes screen Diabetes screen [facility] Start: 2010 Screening for malignant neoplasm of cervix [facility] Start: 2001 Screening for malignant neoplasm of cervix Pap smear [facility] Start: 09-25-1999 DTaP/Tdap/Td vaccine (1 - Tdap) DTaP/Tdap/Td vaccine (1 - Tdap) [facility] Start: 1998 Adult BMI Follow Up Plan Adult BMI Follow Up Plan [facility] Start: 1998 Hepatitis C screening Hepatitis C sc reen [facility] Start: 09-25-1995 HIV screening HIV screen [facility] Start: 1993 Varicella vaccine (1 of 2 - 13+ 2-dose series) Varicella vaccine (1 of 2 - 13+ 2-dose series) [facility] Start: 1992 Depression Screen Depression Screen [facility] Start: 1992 [facility] Start: 1981 Varicella vaccine (1 of 2 - 2-dose childhood series) Varicella vaccine (1 of 2 - 2-dose childhood series) [facility] Start: 03-27-1981 COVID-19 Vaccine (#1) COVID-19 Vacci ne (#1) [facility] Start: 1980 Glaucoma screening Diabetic Op hthalmology Exam [facility] Start: 1980 Hepatitis B vaccine (1 of 3 - 3-dose series) Hepatitis B vaccine (1 of 3 - 3-dose series) [facility] Inject si joint arthrgrphy&/anes/ster oid w/monika INJECTION BLOCK SACROILIAC JOINT Disorder of sacrum [facility] Njx dx/ther agt pvrt facet jt lmbr/sac 1 level INJECTION BLOCK NERVE MEDIAL BRANCH Lumbosacral spondylosis without myelopathy [facility] Immunizations Immunization Date Immunization Notes Care Provider Fa cility 12-22-2022 influenza virus vaccine, unspecified formulation Deepika Robledo MD Work Phone: [facility] 12-19-2018 influenza, injectabl e, quadrivalent, preservative free Argenis Storm RN [facility] 12-02-2017 influenza, injectabl e, quadrivalent, preservative free Argenis Storm RN [facility] 12-02-2017 pneumococcal conjuga te vaccine, 13 valent Argenis Storm RN [facility] 10-10-2016 influenza virus vaccine, unspecified formulation Argenis Storm RN [facility] 12-19-2013 influenza virus vaccine, live, attenuated, for intranasal use Argenis Storm RN [facility] 12-03-2012 influenza virus vaccine, whole virus Argenis Storm RN [facility] 12-29-2011 influenza virus vaccine, whole virus Argenis Storm RN [facility] 12-23-2010 influenza virus vaccine, whole virus Argenis Storm RN [facility] 12-18-2008 influenza virus vaccine, whole virus Argenis Storm RN [facility] Payers Date Payer Category Payer Self-pay [id number] 2002 Medicaid [employer] [id number] 2002-Present [phone] [facility] [address] [place] [address] [id number] 1980 Unknown [id number] 2.16840.1.673366.3.579.2.593 1980 Unknown [id number] 2.16840.1.323806.3.579.2.59 1980 Unknown [id number] 2.16.840.1.815079.3.579.2.593 1980 Unknown [id number] 2.16840.1.709084.3.579.2.59 1980 Unknown [id number] 2.16840.1.929825.3.579.2.727 1980 Unknown [id number] 2.840.1.506399.3.579.2.1285 1980 Unknown [id number] 2.840.1.542014.3.579.2.1285 1980 Unknown [id number] 2.0.1.372410.3.579.2.1258 1980 Unknown [id number] 2.840.1.791751.3.579.2.1258 1980 Unknown [id number] 2.840.1.282347.3.579.2.1258 1980 Unknown [id number] 2.840.1.273913.3.579.2.1258 1980 Unknown [id number] 04.17.830.1.011265.3.579.2.1285 1980 Unknown [id number] 2.840.1.340549.3.579.2.1285 1980 Unknown [id number] 2.840.1.146923.3.579.2.1285 1980 Unknown [id number] 2.840.1.313112.3.579.2.1285 1980 Unknown [id number] 2.840.1.641070.3.579.2.1285 1980 Unknown [id number] 2.16840.1.576482.3.579.2.1286 1980 Unknown [id number] 2.16.840.1.859129.3.579.2.1285 1980 Unknown [id number] 2.16.840.1.163607.3.579.2.1285 1980 Unknown [id number] 2.16.840.1.562979.3.579.2. 1980 Unknown [id number] 2.16.840.1.508406.3.579.2. 1980 Unknown [id number] 2.16840.1.846019.3.579.2. 1980 Unknown [id number] 2.16840.1.357092.3.579.2. 1980 Unknown [id number] 2.16840.1.688027.3.579.2. 1980 Unknown [id number] 2.16840.1.354635.3.579.2. 1980 Unknown [id number] 2.16840.1.700915.3.579.2. 1980 Unknown [id number] 2.16840.1.241815.3.579.2. 1980 Unknown [id number] 2.16840.1.414377.3.579.2. 1980 Unknown [id number] 2.16.840.1.179267.3.579.2. 1980 Unknown [id number] 2.16840.1.452350.3.579.2. 1980 Unknown [id number] 2.16.840.1.661983.3.579.2. 1980 Unknown [id number] 2.16.840.1.439564.3.579.2. 1980 Unknown [id number] 2.16840.1.488784.3.579.2. 1980 Unknown [id number] 2.16.840.1.032395.3.579.2. 1980 Unknown [id number] 2.16.840.1.336332.3.579.2. 1980 Unknown [id number] 2.16.840.1.159481.3.579.2. 1980 Unknown [id number] 2.16.840.1.934090.3.579.2. 1980 Unknown [id number] 2.16.840.1.332942.3.579.2. 1980 Unknown [id number] 2.16840.1.300095.3.579.2. 1980 Unknown [id number] 2.16840.1.755235.3.579.2. 1980 Unknown [id number] 2.840.1.544950.3.579.2. 1980 Unknown [id number] 2.16840.1.738370.3.579.2. 1980 Unknown [id number] 2.16840.1.210430.3.579.2. 1980 Unknown [id number] 2.16840.1.512795.3.579.2. 1980 Unknown [id number] 2.16840.1.093682.3.579.2. 1980 Unknown [id number] 2.16.840.1.109951.3.579.2. 1980 Unknown [id number] 2.16840.1.835384.3.579.2. 1980 Unknown [id number] 2.16.840.1.962439.3.579.2. 1980 Unknown [id number] 2.16.840.1.427438.3.579.2.173 1959 Medicaid [id number] Unknown [id number] 2.16.840.1.912454.3.579.2.531 Unknown [id number] 2.16.840.1.241049.3.579.2.531 Unknown [id number] 2.16.840.1.920744.3.579.2.531 Social History Date Type Detail Facility Start: 09-02-2017 End: 05-21-2023 Tobacco smoking status HIIS Never smoked tobacco [employer] Start: 09-02-2017 End: 01-28-2022 Tobacco use and exposure Smokeless tobacco non-user [employer] Phone: Start: 10-11-2021 End: 10-05-2023 Alcohol intake Current non-drinker of alcohol (finding) [employer] Phone: Start: 1980 Sex Assigned At Not on file B ON [employer] Phone: Start: 10-01-2021 End: 10-22-2021 Exposure to SARS-CoV-2 (event) Not sure [employer] Phone: Start: 10-11-2021 End: 10-05-2023 Sex Assigned At [facility] Tobacco smoking status Never [facility] Start: 10-11-2021 End: 10-05-2023 History of Social function [facility] Start: 1980 Sex Assigned At Female F [facility] How often to you hav e a drink containing alcohol? Never [employer] Medical Equipment Procedure Code Equipment Code Equipment Origin al Text Equipment Identifier Dates Union Furnace Sut 5.5mm 2 Ft Crkscr Fbrwr Shldr 3 Pk 14.7mm Strl Ea=Bill-Only Rpl [id number] - [id number] Start: 05-15-2022 Use to test BLOO D SUGAR TWICE DAILY [id number] Start: 05-28-2020 Use to test BLOO D SUGAR TWICE DAILY, Diagnosis: E11.9 [id number] Start: 03-08-2020 Clinical Notes 10-22-2021 to 10-20-2023 Jan Olmstead, PT - 10/20/2023 9:45 AM EDFilomena Yanez - 09/22/2023 1:15 PM Kofi Lerma, PT - 08/26/2023 2:30 PM Filomena Nassar - 08/21/2023 10:45 AM EDTPatient InstructionsAttachments Note Date & Type Note Facility 10-20-2023 History of Presen t illness Narrative [facility] Outpatient Physical Therapy Daily Note Patient: Karma Candelaria : 1980 CSN #: [id number] Referring Physician: Shawna Mcfadden DO Date: 10/20/2023 Treatment Diagnosis: LBP, cervical spine pain Onset Date: 02/18/23 PT Insurance Information: [facility] Total # of Visits Approved: 32 Per Physician Order Total # of Visits to Date: No Show: 0 Canceled Appointment: 0 11/20/23 Plan of Care/Recert Due Pre-Treatment Pain: 5-6/10 Subjective: Pt reports with 5-6/10 pain. She reports she fell off a stool the other day which increased her LBP and L hip pain. She reports continued bilateral sciatica. Manual: Soft Tissue Mobilizaton: heated thermaprobe to cervical and thoracic paraspinals x10 min to decrease tone Other: IDN to low back B paraspinals, R piriformis static placement x10 min to promote healing response Modality: Modality Flow Sheet: Performed (X) Tx Modality X Electrical Stim: To neck and lumbar spine x15 minutes to decrease soreness. Assessment Body Structures, Functions, Activity Limitations Requiring Skilled Therapeutic Intervention: Decreased endurance, Increased pain, Decreased posture Assessment: Continued with dry needling along with E-Stim and heated thermoprobe massage to decrease pain. Patient continues to report relief with dry needling for about a week. She reports she is able to receive cervical traction and lumbar spine traction at a different facility. She reports she has more visits and would like to continue with PT for dry needling at this time. Activity Tolerance Activity Tolerance: Patient tolerated treatment well Patient Education Patient Education: HEP Pt verbalized/demonstrated good understanding: [x] Yes [] No, pt required further clarification. Post Treatment Pain: 5/10 Plan Plan Frequency: up to 4 visits, every other week Plan weeks: 6 Goals (Total # of Visits to Date: 23) Short Term Goals Time Frame for Short Term Goals: 3 visits Short Term Goal 1: Initiate HEP and progress as tolerated including reviewing proper posture.-met Short Term Goal 2: Pt will report relief in her complaints of pain in the cervical area and her LB area.-met Manager Financial Planning Goals Time Frame for Residential Goals : 6 visits Manager Financial Planning Goal 1: Pt will be independent and compliant with exercise while maintaining improved posture 50% of the time - not met Residential Goal 2: Pt will be able to perform full cervical ROM without increase complaints of baseline pain with initiation to demonstrate imporved control of pain -NOT MET: continued cervical spine pain. Manager Financial Planning Goal 3: Pt will report 40% improvement in overall complaints and improved tolerance to her job tasks - 40% improved. Residential Goal 4: Pt kvng UE strength will be 5/5 without increasing pain complaints to assist in tolerance of lifting and carrying -PARTIALLY MET 4+/5 grossly. Minutes Tracking: Time In: 0945 Time Out: 1030 Minutes: 45 Timed Code Treatment Minutes: 43 Minutes Jan Olmstead PT, DPT, OCS, Cert. DN Date: 10/20/2023 documented in this encounter [facility] 09-22-2023 History of Presen t illness Narrative [...] her next appt. documented in this encounter [facility] 08-26-2023 History of Presen t illness Narrative [facility] Outpatient Physical Therapy Daily Note Patient: Karma Candelaria : 1980 CSN #: [id number] Referring Physician: Shawna Mcfadden DO Date: 08/26/2023 Diagnosis: Z76.89 - Persons encountering health services in other specified circumstances Treatment Diagnosis: pain in cervical and LB Onset Date: 02/18/23 PT Insurance Information: [employer] Total # of Visits Approved: 24 Per [...] the cervical area and her LB area.-met Residential Goals Time Frame for Residential Goals : 6 visits Manager Financial Planning Goal 1: Pt will be independent and compliant with exercise while maintaining improved posture 50% of the time. Manager Financial Planning Goal 2: Pt will be able to perform full cervical ROM without increase complaints of baseline pain with initiation to demonstrate imporved control of pain. Manager Financial Planning Goal 3: Pt will report 40% improvement in overall complaints and improved tolerance to her job tasks. Minutes Tracking: Time In: 1430 Time Out: 1500 Minutes: 30 Timed Code Treatment Minutes: 29 Minutes Kofi Villegas, PT, DPT Date: 08/26/2023 documented in this encounter [facility] 08-21-2023 History of Presen t illness Narrative Physical Therapy Disregard the no show note on 08/17. This was added in error. [facility] Outpatient Physical Therapy Daily Note Patient: Karma Candelaria : 1980 CSN #: [id number] Referring Physician: Shawna Mcfadden DO Date: 08/21/2023 Treatment Diagnosis: pain in cervical and LB Onset Date: 02/18/23 PT Insurance Information: [facility] Total # of Visits Approved: 24 Per Physician Order Total # of Visits to Date: No Show: 0 Canceled Appointment: 0 08/28/23 [...] the cervical area and her LB area. Residential Goals Time Frame for Manager Financial Planning Goals : 6 visits Manager Financial Planning Goal 1: Pt will be independent and compliant with exercise while maintaining improved posture 50% of the time. Manager Financial Planning Goal 2: Pt will be able to perform full cervical ROM without increase complaints of baseline pain with initiation to demonstrate imporved control of pain. Manager Financial Planning Goal 3: Pt will report 40% improvement in overall complaints and improved tolerance to her job tasks. Residential Goal 4: Pt kvng UE strength will be 5/5 without increasing pain complaints to assist in tolerance of lifting and carrying. Minutes Tracking: Time In: 1045 Time Out: 1116 Minutes: 31 Timed Code Treatment Minutes: 29 Minutes Jan Olmstead PT, DPT Date: 08/21/2023 documented in this encounter [facility] 08-11-2023 History of Presen t illness Narrative [facility] Outpatient Physical Therapy Daily Note Patient: Karma Candelaria : 1980 CSN #: [id number] Referring Physician: Shawna Mcfadden DO Date: 08/11/2023 Diagnosis: Z76.89 - Persons encountering health services in other specified circumstances Treatment Diagnosis: pain in cervical and LB Onset Date: 02/18/23 PT Insurance Information: [employer] Total # of Visits Approved: 24 Per Physician Order Total # of Visits to Date: 17 No Show: 0 Canceled Appointment: 0 08/28/23 Plan of Care/Recert Due Pre-Treatment Pain: 6/10 Subjective: Patient reports 6/10 cervical spine and R LBP coming into [...] the cervical area and her LB area. Manager Financial Planning Goals Time Frame for Manager Financial Planning Goals : 6 visits Residential Goal 1: Pt will be independent and compliant with exercise while maintaining improved posture 50% of the time. Residential Goal 2: Pt will be able to perform full cervical ROM without increase complaints of baseline pain with initiation to demonstrate imporved control of pain. Manager Financial Planning Goal 3: Pt will report 40% improvement in overall complaints and improved tolerance to her job tasks. Residential Goal 4: Pt kvng UE strength will be 5/5 without increasing pain complaints to assist in tolerance of lifting and carrying. Minutes Tracking: Time In: 1330 Time Out: 1400 Minutes: 30 Timed Code Treatment Minutes: 28 Minutes Jan Olmstead PT, DPT Date: 08/11/2023 documented in this encounter [facility] 07-14-2023 History of Presen t illness Narrative Physical Therapy [facility] Inpatient/Observation/Outpatient Rehabilitation Date: 07/14/2023 Patient Name: [...] does not require skilled services due to: Therapist/Chief Quality Officer will attempt to see this patient, at our earliest opportunity. Filomena Raphael Date: 07/14/2023 documented in this encounter [facility] 06-02-2023 History of Presen t illness Narrative [...] Year discontinued? N/a Are you of Ashkenazi Mosque decent? no Family history of cancer: relation [...] or lymphadenopathy. I reviewed notes from her materials coordinator dated 05/05/2023, imaging including mammogram and ultrasound dated 03/16/2023 and 03/25/2023, history form dated 06/02/2023. Past Medical History Past Medical History: Diagnosis Date Anxiety Asthma Back pain Bipolar 1 disorder ([facility]) Breast disorder enlarged lymph nodes in both breast Carpal tunnel syndrome Chronic pain disorder Deep vein thrombosis [place] blood clot in left [...] night 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 ([facility]) 11/10/2017 Visual impairment Past Surgical History Past Surgical History: Procedure Laterality Date ANKLE SURGERY Left x2 ARTHROSCOPY SHOULDER WITH ROTATOR CUFF REPAIR Right 05/15/2022 Performed by Chepe Ingram MD at [facility] DEBRIDEMENT Right 05/15/2022 Performed by Chepe Ingram MD at [facility] DECOMPRESSION OF SUBACROMIAL SPACE WITH PARTIAL ACROMIOPLASTY Right 05/15/2022 Performed by Chepe Ingram MD at [facility] INJECTION BLOCK EPIDURAL STEROID LUMBAR/SACRAL: L 4/5 WU N/A 04/22/2021 Performed by Pete Silver MD at [facility] INJECTION BLOCK SACROILIAC JOINT Left 03/27/2023 Performed by Pete Silver MD at [facility] CERVICAL OR THORACIC EPIDURAL BLOCK WITH STEROIDS: C67 WU N/A 01/29/2018 Performed by Pete Silver MD at [facility] LUMBAR OR SACRAL EPIDURAL BLOCK WITH STEROIDS: L45 WU N/A 10/15/2018 Performed by Pete Silver MD at [facility] MEDIAL BRANCH NERVE BLOCK: bilat L45 51 Bilateral 07/30/2018 Performed by Pete Silver MD at [facility] SPINE TRANSFORAMINAL: left C 5,6 Nroot Left 01/09/2023 Performed by Pete Silver MD at [facility] LAPAROSCOPIC CHOLECYSTECTOMY N/A 09/16/2016 Performed by Juan Ramon Jean MD at [facility] LIVER BIOPSY EMA PROCEDURE Right 05/15/2022 Performed by Chepe Ingram MD at [facility] NASAL SURGERY REPAIR HERNIA UMBILICAL 09/16/2016 Performed by Juan Ramon Jean MD at [facility] TONSILLECTOMY Family History Family History Problem Relation [...] 5 blood-glucose meter (TRUE METRIX GLUCOSE METER) [place], use to test BLOOD SUGAR TWICE DAILY, [...] , Rfl: lancets (UNILET LANCET) 28 gauge [place], Use to test BLOOD SUGAR TWICE DAILY, [...] on 04/28/2023), Disp: 30 tablet, Rfl: 0 yrqcvalg-xetv-ZY-calcium &mins (THERAGRAN-M) 9 mg iron-400 mcg tablet, [...] a bilateral screening mammogram on 03/16/2023 through [facility]. Her breast tissue is almost entirely fatty. There was a 1 cm mass in the posterior upper-outer right breast 17 cm from the nipple. They thought this was likely a lymph node but recommended that she return for additional imaging. She had the imaging done in [place]. They did a right diagnostic mammogram and [...] with any concerns. documented in this encounter [facility] 05-12-2023 Miscellaneous Notes Spoke with patient and scheduled with Dr. Robledo 4/2. Patient voiced understanding of appointment details. Patient was offered sooner dates but declined per her availability. documented in this encounter [facility] 05-12-2023 Telephone encounter Note Spoke with patient and scheduled with Dr. Robledo 4/2. Patient voiced understanding of appointment details. Patient was offered sooner dates but declined per her availability. [facility] 04-30-2023 Miscellaneous Notes Last Office Visit: 04/28/2023 Next Office Visit: Visit date not found Last Urine Drug Screen: No results found for: BENZOSCRN OARRS appropriate documented in this encounter [facility] 04-30-2023 Telephone encounter Note Last Office Visit: 04/28/2023 Next Office Visit: Visit date not found Last Urine Drug Screen: No results found for: BENZOSCRN OARRS appropriate [facility] 04-28-2023 History of Presen t illness Narrative [facility] [address] [place] [address] Patient: Karma Banegas Sex: female : 1980 [...] spine (09/2022 last visit for 11/05/22) at [facility] with no relief Back: 10/15/18 L4/5 [...] Anxiety Asthma Back pain Bipolar 1 disorder ([facility]) Breast disorder enlarged lymph nodes in both breast Carpal tunnel syndrome Chronic pain disorder Deep vein thrombosis ([facility] [place] blood clot in left [...] night 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 ([facility] 11/10/2017 Visual impairment Past Surgical History: Procedure Laterality Date ANKLE SURGERY Left x2 ARTHROSCOPY SHOULDER WITH ROTATOR CUFF REPAIR Right 05/15/2022 Performed by Chepe Ingram MD at [facility] DEBRIDEMENT Right 05/15/2022 Performed by Chepe Ingram MD at [facility] DECOMPRESSION OF SUBACROMIAL SPACE WITH PARTIAL ACROMIOPLASTY Right 05/15/2022 Performed by Chepe Ingram MD at [facility] INJECTION BLOCK EPIDURAL STEROID LUMBAR/SACRAL: L 4/5 WU N/A 04/22/2021 Performed by Pete Silver MD at [facility] INJECTION BLOCK SACROILIAC JOINT Left 03/27/2023 Performed by Pete Silver MD at [facility] CERVICAL OR THORACIC EPIDURAL BLOCK WITH STEROIDS: C67 WU N/A 01/29/2018 Performed by Pete Silver MD at [facility] INJECTION LUMBAR OR SACRAL EPIDURAL BLOCK WITH STEROIDS: L45 WU N/A 10/15/2018 Performed by Pete Silver MD at [facility] MEDIAL BRANCH NERVE BLOCK: bilat L45 51 Bilateral 07/30/2018 Performed by Pete Silver MD at [facility] INJECTION SPINE TRANSFORAMINAL: left C 5,6 Nroot Left 01/09/2023 Performed by Pete Silver MD at [facility] LAPAROSCOPIC CHOLECYSTECTOMY N/A 09/16/2016 Performed by Juan Ramon Jean MD at [facility] LIVER BIOPSY EMA PROCEDURE Right 05/15/2022 Performed by Chepe Ingram MD at [facility] NASAL SURGERY REPAIR HERNIA UMBILICAL 09/16/2016 Performed by Juan Ramon Jean MD at [facility] TONSILLECTOMY Allergies Allergen Reactions Metformin Severe hypoglycemia [...] Hodge 04/30/23 1141 documented in this encounter [facility] 04-28-2023 Instructions Peg Conrad CNA - 04/28/2023 [...] nearest emergency room. documented in this encounter [facility] 04-20-2023 Hospital Discharg e instructions Precious Urbina APRN - CNP - 04/20/2023 1:50 PM EST Increase fluid Tylenol Motrin for cough Continue home medications The following attachments cannot be sent through Care Everywhere.Head Injury: Closed: General Info (Prydeinig)Cervical Strain (Prydeinig)documented in this encounter [facility] 03-31-2023 Miscellaneous Notes Patient calls today and [...] medications prescribed to someone other than her. Group Exercise Manager reiterated this to patient. Patient's pharmacy was confirmed with her. Order pended for review and signature. documented in this encounter [facility] [employer] 03-31-2023 Telephone encounter Note Patient calls today [...] are prescribed to someone other than her. [facility] [employer] 03-31-2023 Telephone encounter Note Is she still taking prozac? What dosage? Any other antidepressants? [facility] [employer] 03-31-2023 Telephone encounter Note Call placed to patient to confirm whether or not she is taking Prozac or other antidepressants. Patient states she is taking 40 mg Prozac daily. That is the only antidepressant that she takes. She is prescribed Latuda and Lamictal to treat [facility] Note Can try cymbalta 30mg once daily [facility] Telephone encounter Note Call placed to patient to inform her of provider's response. Patient is also educated not to take medications that are prescribed to someone other than her. Patient voices that she is aware that she should not be taking medications prescribed to someone other than her. Group Exercise Manager reiterated this to patient. Patient's pharmacy was confirmed with her. Order pended for review and signature. [facility] 03-05-2023 Evaluation note Encounter Date Diagnosis Assessment [...] was counseling done by myself, Rhina ROBERTSON. [facility] Other 01-01-2024 Hospital Discharge instructions* Discharge Instructions* Sil Sullivan DO - 03/02/2023 7:49 PM EST Please follow-up with your GI doctor, trial enema at home, return to the ER for worsening abdominalpain, inability to pass gas, or nausea, vomiting * Attachments The following attachments cannot be sent through Care Everywhere. * Constipation (Prydeinig) [facility] Miscellaneous Notes* Telephone Encounter - Argenis Storm [...] when she was under his care in [place]. She is currently taking Meloxicam that helps [...] She states whatever . [facility] encounter Note* Telephone Encounter - Argenis [...] when she was under his care in [place]. She is currently taking Meloxicam that helps [...] add Dr. Silver on the note. PVU. [facility]12-22-2023 Telephone encounter Note* Telephone Encounter - Pete Silver MD - 02/20/2023 10:04 AM EST Discussed with nurse, I agree with Fartun's treatment plan going forward. [facility]-22-2023 Telephone encounter Note* Telephone Encounter - UMESH Hodge - 02/20/2023 10:04 AM EST No Rx for tramadol. I have never written prescription for bra so I would not know how to proceed with anything like that. [facility]-22-2023 Telephone encounter Note* Telephone Encounter - Argenis Storm RN - 02/20/2023 10:04 AM EST Patient aware of response. She states whatever . [facility]12-20-2023 Evaluation note* Encounter Date Diagnosis Assessment Notes Treatment Notes Treatment Clinical Notes Jan, Constipation, unspecified constipation type (ICD-10 - K59.00) Jan, Constipation (ICD-10 - K59.00) [facility] Other 12-12-2023 Miscellaneous Notes* Telephone Encounter - [...] and has f/u appt [facility] Telephone encounter Note* Telephone Encounter - Margaux Olea CST - 02/10/2023 8:18 AM EST Received denial letter for an SI Inj. It is noted in prior requests, the member's chronic pain is related to discogenic causes with improvement in symptoms with shots directed the discogenic disorder. It is not noted why the source of the chronic pain is now related to sacroiliac joint. [facility]12-12-2023 Telephone encounter Note* Telephone Encounter - UMESH [...] sufficient reason to deny the current request. [facility]-12-2023 Telephone encounter Note* Telephone Encounter - Alfredito William - 02/10/2023 8:18 AM EST GOT APPROVAL [employer]12-12-2023 Telephone encounter Note* Telephone Encounter - Maty Fulton RN - 02/10/2023 8:18 AM EST Pt is scheduled 03/27 for procedure and has f/u appt [facility]12-07-2023 Evaluation note* Encounter Date Diagnosis Assessment Notes [...] R10.9) Jan, Rectal bleed (ICD-10 - K62.5) [facility] Other 11-16-2023 Evaluation note* Encounter Date Diagnosis [...] was counseling done by myself, Rhina ROBERTSON. [facility] Other 11-08-2023 Evaluation note* Encounter Date Diagnosis [...] HAVE PATIENT START DOCUSATE 3 CAPSULES DAILY. [facility] Other 06-29-2023 Evaluation note* Encounter Date Diagnosis Assessment Notes Treatment Notes Treatment Clinical Notes Jul, Obesity (ICD-10 - E66.9) Jul, BMI 34.0-34.9,adult (ICD-10 - Z68.34) Jul, Other Summary of Visi t: (A) discussed continuing to work on small goals until stress decreases and she has the energy to increase goals (B) discussed healhtier choices at [place]- food blog reviewed (C) reviewed food storage tips for keeping produce fresh longer Patient set the following goals: - NEW: continue to choose sugar free beverages- not reviewed [facility] Other 05-30-2023 Evaluation note* Encounter Date Diagnosis [...] was counseling done by myself, Rhina ROBERTSON. [facility] Other 03-21-2023 Evaluation note* Encounter Date Diagnosis [...] was counseling done by myself, Rhina ROBERTSON. [facility] Other 02-07-2023 Evaluation note* Encounter Date Diagnosis [...] set the following goals: not reviewed today [facility] Other 02-07-2023 Evaluation note* Encounter Date Diagnosis [...] Z87.442) Apr, BMI 36.0-36.9,adult (ICD-10 - Z68.36) 07 Apr, 2022 Other I have spent 30 minutes with this patient and over 50% of the visit was counseling done by myself, Rhina ROBERTSON. [facility] Other 12-28-2022 Evaluation note* Encounter Date Diagnosis [...] patient set personal goal using given handout. [facility] Other 12-27-2022 Evaluation note* Encounter Date Diagnosis [...] was counseling done by myself, Rhina ROBERTSON. [facility] Other 12-01-2022 NotePROCEDURE: XR ANKLE LT MIN [...] Electronically authenticated by: ONEL CLARK Date: 2022-01-29 22:30[facility]12-01-2022 NotePROCEDURE: XR ANKLE LT MIN 3 V, [...] Electronically authenticated by: ONEL CLARK Date: 2022-01-29 22:30[facility]11-15-2022 Evaluation note* Encounter Date Diagnosis Assessment Notes [...] was counseling done by myself, Rhina ROBERTSON. [place] [employer] Other 10-05-2022 Evaluation note* Encounter Date Diagnosis [...] was counseling done by myself, Rhina ROBERTSON. [facility] Other 08-30-2022 Evaluation note* Encounter Date Diagnosis Assessment Notes Treatment Notes Treatment Clinical Notes Sep, Fatty liver (ICD-10 - K76.0) ENCOURAGED WEIGHT LOSS Sep, Obesity (BMI 30-39.9) (ICD-10 - E66.9) [facility] Other 08-23-2022 Hospital Discharge instructions* Discharge Instructions* Stanley Almonte PA-C - 10/22/2021 2:03 PM EDT Follow-up with primary care doctor 7 to 10 days for reevaluation. Take Motrin 800 mg as directed with food. Start eardrops left ear as directed. Promptly return to emergency department for new, changing or worsening of symptoms or other concerns. [facility] [employer] Work Phone: evaluation + Plan note No data available for this section [facility]* Diagnosis Pilonidal cyst- Primary Pilonidal cyst without mention of abscess documented in this encounter [facility] [employer] Work Phone: evalohpyep note* Diagnosis Acute diffuse otitis externa of left ear- Primary documented in this encounter [facility] [employer] Phone: evalaegvxl noteNo InformationNortEn[facility] Other Evaluation note* Diagnosis Constipation, unspecified constipation type- Primary documented in this encounter [facility] [employer] noteNo assessment information [facility] Work Phone: Evaluation note* Diagnosis Closed head injury, initial encounter- Primary Fall due to slipping on ice or snow, initial encounter Acute cervical myofascial strain, initial encounter documented in this encounter [facility]* Diagnosis Lumbosacral spondylosis without myelopathy- Primary [facility] Diagnosis Mass of upper outer quadrant of right breast- Primary Abnormal mammogram Abnormal mammogram, unspecified Symptomatic mammary hypertrophy [facility]* Diagnosis Onset Date Resolution Status ADHD acute BMI 36.0-36.9,adult acute Constipation acute Diabetes mellitus with hyperglycemia acute Fatty liver acute IBS (irritable bowel syndrome) acute Obesity acute Shifting sleep-work schedule, affecting sleep acute Constipation acute Elevated liver function tests acute Fatty liver acute IBS (irritable bowel syndrome) acute [facility] Work Phone: Hisguph general Narrative - Reported* Type Description Date Medical History PTSD Medical History DIVERTICULITOUS Surgical History 2 BACK INJECTIONS 2014 Surgical History LEFT ANKLE 2002 Surgical History CHOLECYSTECTOMY Hospitalization History SEE ABOVE [facility] Other Hisjxxw general Narrative - Reported* Type Description Date Medical History PTSD Medical History DIVERTICULITOUS Medical History bipolar Medical History ADHD Surgical History 2 BACK INJECTIONS 2014 Surgical History LEFT ANKLE 2002 Surgical History CHOLECYSTECTOMY Surgical History nasal surgery Hospitalization History SEE ABOVE [facility] Other Hisuljg general Narrative - Reported* Type Description Date Medical History PTSD Medical History DIVERTICULITOUS Medical History bipolar Medical History ADHD Surgical History 2 BACK INJECTIONS 2014 Surgical History LEFT ANKLE 2002 Surgical History CHOLECYSTECTOMY Surgical History nasal surgery Surgical History right Rotator surgery 05-15-22 Hospitalization History SEE ABOVE [facility] Other Hisjfjt general Narrative - Reported* Type Description Date Medical History PTSD Medical History DIVERTICULITOUS Medical History bipolar Medical History ADHD Medical History rotator cuff tear Surgical History 2 BACK INJECTIONS 2014 Surgical History LEFT ANKLE 2002 Surgical History CHOLECYSTECTOMY Surgical History nasal surgery Surgical History right Rotator surgery 05-15-22 Hospitalization History SEE ABOVE [facility] Other Hisfreg general Narrative - Reported* Type Description Date Medical History PTSD Medical History DIVERTICULITOUS Medical History bipolar Medical History ADHD Medical History rotator cuff tear Surgical History 2 BACK INJECTIONS 2015 Surgical History LEFT ANKLE 2002 Surgical History CHOLECYSTECTOMY Surgical History nasal surgery Surgical History right Rotator surgery 05-15-22 Surgical History Neck injections/root burnt 12/31 Hospitalization History SEE ABOVE [facility] Other Hisjavb general Narrative - Reported* Type Description Date Medical History PTSD Medical History DIVERTICULITOUS Medical History bipolar Medical History ADHD Medical History rotator cuff tear Surgical History 2 BACK INJECTIONS 2014 Surgical History LEFT ANKLE 2002 Surgical History CHOLECYSTECTOMY Surgical History nasal surgery Surgical History right Rotator surgery 05-15-22 Surgical History Neck injections/root burnt 12/31 Hospitalization History SEE ABOVE Hospitalization History [facility] 03-02-20[facility] Other Hospital Discharge instructions* Attachments The following attachments cannot be sent through Care Everywhere. * Pilonidal Abscess (Prydeinig) [facility] [employer] Work Phone: Hospital Discharge instructions No data available for this section [facility] CenterInstructionsNot on filedocumented in this encounter [facility] System[facility]ructionsNot on filedocumented in this encounter [facility] SystemInstructionsNot on filedocumented in this encounter [facility] SystemInstructionsNot on filedocumented in this encounter [facility] SystemInstructionsNot on filedocumented in this encounter [facility] SystemProgress note No data available for this section [facility] CenterReason for visit Narrative* Consultation (Routine) - Pending Review Specialty Diagnoses / Procedures Referred By Karla t Referred To Contact Breast Surgery Diagnoses Abnormal mammogram Carmen Fisher MD [address] [place] [id number] Ila Trevizo MD [address] [place] [phone] Referral ID Status Reason Start Date Expiration Date V isits Requested Visits Authorized [id number] Pending Review 05/06/2023 05/05/2024 1 1 [facility] Summary Purpose Family History No Family [...] [id number] Gaurav Sellers, [place] [address] [facility], [address] [place] [address] Referral ID Status Reason Start Date Expiration Date V isits Requested Visits Authorized [id number] Pending Review 04/28/2023 04/27/2024 1 1 Chief [...] content) DATE CREATED AUTHOR [facility]/26/[facility] DATE CREATED AUTHOR AUTHOR'S ORGANIZ ATION 05/30/2022 [facility] DATE CREATED AUTHOR AUTHOR'S ORGANIZ ATION 01/18/2023 [facility] DATE CREATED AUTHOR AUTHOR'S ORGANIZ ATION 06/04/2023 [facility] DATE CREATED AUTHOR AUTHOR'S ORGANIZ ATION 08/03/2023 [facility] DATE CREATED AUTHOR AUTHOR'S ORGANIZ ATION 08/15/2023 [facility] DATE CREATED AUTHOR AUTHOR'S ORGANIZ ATION 10/07/2023 [facility] DATE CREATED AUTHOR AUTHOR'S ORGANIZ ATION 10/10/2023 [facility] DATE CREATED AUTHOR AUTHOR'S ORGANIZ ATION 10/21/2023 Annabel grace Reason for Visit (unrecogniz ed [...] Dispensed Refills Start Date End Da te nxzomkwj-zubahqems-sqjhbi ortisone (CORTISPORIN) 3.5-87542-[address] 4 drops into the [...] Care Teams (unrecognized sec tion and content) Hematology Technician Relationship Specialty Start Date End Date Shawna Mcfadden DO [address] [place], [place] [phone] PCP - General Family Medicine 10/12/21 Hematology Technician Relationship Specialty Start Date End Date Shawna Mcfadden DO [address] [place], [place] [phone] PCP - General Family Medicine 10/12/21 Hematology Technician Relationship Specialty Start Date End Date Shawna Mcfadden DO [address] [place] [address] PCP - General Family Medicine 10/12/21 Hematology Technician Relationship Specialty Start Date End Date Shawna Mcfadden DO [address] [place], [place] [phone] PCP - General Family Medicine 05/02/22 Hematology Technician Relationship Specialty Start Date End Date Shawna Mcfadden DO [address] [place], [place] [phone] PCP - General Family Medicine 10/12/21 Hematology Technician Relationship Specialty Start Date End Date Shawna Mcfadden DO [address] [place] [address] PCP - General Family Medicine 05/02/22 Team [...] Care Provider Active Start: March 18, 2023 Hematology Technician Relationship Specialty Start Date End Date Shawna Mcfadden DO [address] [place] [address] PCP - General Family Medicine 05/02/22 Hematology Technician Relationship Specialty Start Date End Date Shawna Mcfadden DO [address] [place] [address] PCP - General Family Medicine 10/12/21 Hematology Technician Relationship Specialty Start Date End Date Shawna Mcfadden DO [address] [place] [address] PCP - General Family Medicine 05/02/22 Hematology Technician Relationship Specialty Start Date End Date Shawna Mcfadden DO [address] [place] [address] PCP - General Family Medicine 10/12/21 Hematology Technician Relationship Specialty Start Date End Date Shawna Mcfadden DO [address] [place] [address] PCP - [facility] 05/02/22 Hematology Technician Relationship Specialty Start Date End Date Shawna Mcfadden DO [address] [place], [place] [phone] PCP - [facility] 05/02/22 Team Status: Active Member Role Status Dates Rory Driver [facility] Primary Care Provider Active Team Status: Inactive Member Role Status Dates Gayathri Adams APRN Attending Provider Active Start: May 21, 2023 End: May 21, 2023 Rory Driver , [facility] Primary Care Provider Active Start: May 21, 2023 End: May 21, 2023 Team Status: Inactive Member Role Status Dates Jan Garg APRN Attending Provider Active Start: May 21, 2023 End: May 21, 2023 Rory Driver , [facility] Primary Care Provider Active Start: May 21, 2023 End: May 21, 2023 Hematology Technician Relationship Specialty Start Date End Date Shawna Mcfadden DO [address] [place] [place], [place] [phone] PCP - [facility] 10/12/21 Hematology Technician Relationship Specialty Start Date End Date Shawna Mcfadden DO [address] [place], [place] [phone] PCP - [facility] 10/12/21 Goals (unrecognized section and content) Goals [...] BE BASED ON THE PRIMARY CLINICAL RECORDS. [facility]. provides no warranty or guarantee of the accuracy or completeness of information in this document.
[2023-10-24 04:55] LABS: Basophils Percent Auto 0.3 % (0.2-2.0); Eosinophils Absolute Auto 0.1 10^3/uL (0.0-0.7); Hematocrit 42.7 % (36.0-48.0); Immature Granulocytes Abs Auto 0.04 10^3/uL (0.00-0.03); Immature Granulocytes Pct Auto 0.3 % (0.0-0.5); Lymphocytes Absolute Auto 2.8 10^3/uL (1.2-3.8); Lymphocytes Percent Auto 20.4 % (20.5-60.0); Mean Corpuscular HGB Conc 32.8 g/dL (29.9-35.2); Mean Corpuscular Hemoglobin 28.5 pg (26.7-34.0); Mean Corpuscular Volume 86.8 fL (81.0-99.0); Monocytes Absolute Auto 0.6 10^3/uL (0.3-0.8); Monocytes Percent Auto 4.7 % (1.7-12.0); Neutrophils Percent Auto 73.3 % (43.0-75.0); Platelet Count 284 10^3/uL (150-450); Red Blood Count 4.92 10^6/uL (4.20-5.40); Red Cell Distribution Width 13.6 % (11.0-15.0); White Blood Count 13.6 10^3/uL (4.0-11.0)
--- NOTE | 2023-10-24 05:05 | ED.GENADUL1 ---
Documented by User: James Prather MD 10/24/23 05:29 HPI HPI - General Adult General Chief complaint: Abdominal Pain Stated complaint: ABDOMINAL PAIN Time Seen by Provider: 10/24/23 04:40 Source: patient Mode of arrival: ambulance Limitations: no limitations History of Present Illness HPI narrative: 43-year-old female to the emergency department chief complaint of right-sided abdominal pain. Patient reports that she was working at a [employer] tonight when approximately 1 hour prior to arrival she had sudden onset of right sided abdominal pain. Is associate with nausea without vomiting. She reports that she is sweating from the pain. She has never had pain like this before. She denies any abdominal surgeries. She denies . Related Data Home Medications ?Medication ?Instructions ?Recorded ?Confirmed Bifidobacterium infantis 4 mg 4 mg PO DAILY 10/24/23 10/24/23 capsule (Align) ascorbic acid (vitamin C) 500 mg 500 mg PO BID 10/24/23 10/24/23 tablet (Vitamin C) cholecalciferol (vitamin D3) 50 50 mcg PO DAILY 10/24/23 10/24/23 mcg (2,000 unit) capsule ciclopirox 0.77 % topical cream 1 applic topical Q12H 10/24/23 10/24/23 docusate sodium 100 mg capsule 100 mg PO TID 10/24/23 10/24/23 dulaglutide 3 mg/0.5 mL mg subcut 10/24/23 subcutaneous pen injector (Trulicity) duloxetine 30 mg capsule,delayed mg PO 10/24/23 release duloxetine 60 mg capsule,delayed 60 mg PO DAILY 10/24/23 10/24/23 release empagliflozin 25 mg tablet 25 mg PO DAILY 10/24/23 10/24/23 (Jardiance) famotidine 40 mg tablet 40 mg PO DAILY 10/24/23 10/24/23 fexofenadine 180 mg tablet 180 mg PO Q24H 10/24/23 10/24/23 fluoxetine 60 mg tablet 60 mg PO DAILY 10/24/23 10/24/23 gabapentin 300 mg capsule 300 mg PO Q12H 10/24/23 10/24/23 lamotrigine 200 mg tablet 200 mg PO DAILY 10/24/23 10/24/23 linaclotide 290 mcg capsule 290 mcg PO DAILY 10/24/23 10/24/23 (Linzess) liraglutide 0.6 mg/0.1 mL (18 mg/3 0.6 mg subcut Q24H 10/24/23 10/24/23 mL) subcutaneous pen injector (Victoza 3-Ramon) lisdexamfetamine 20 mg capsule 70 mg PO DAILY 10/24/23 10/24/23 (Vyvanse) lisdexamfetamine 50 mg capsule 50 mg PO DAILY 10/24/23 10/24/23 (Vyvanse) lurasidone 120 mg tablet 120 mg PO DAILY 10/24/23 10/24/23 multivitamin with folic acid 400 1 tab PO DAILY 10/24/23 10/24/23 mcg tablet (Daily-Karely (with folic acid)) pioglitazone 30 mg tablet 30 mg PO DAILY 10/24/23 10/24/23 rosuvastatin 10 mg tablet 10 mg PO DAILY 10/24/23 10/24/23 sumatriptan succinate 100 mg tablet 100 mg PO PRN migraine headache 10/24/23 trazodone 50 mg tablet 50 mg PO DAILY 10/24/23 10/24/23 vitamin B complex 1 tab PO Q24H 10/24/23 10/24/23 Previous Rx's ?Medication ?Instructions ?Recorded cyclobenzaprine 10 mg tablet 10 mg PO BID PRN muscle spasm #10 10/24/23 tabs oxycodone-acetaminophen 5 mg-325 1 tab PO Q8H PRN pain 2 days #6 10/24/23 mg tablet (Percocet) tabs sulfamethoxazole 800 1 tab PO DAILY 5 days #5 tabs 10/24/23 mg-trimethoprim 160 mg tablet (Bactrim DS) tamsulosin 0.4 mg capsule (Flomax) 0.4 mg PO DAILY #10 caps 10/24/23 Allergies Allergy/AdvReac Type Severity Reaction Status Date / Time cephalexin [From Keflex] Allergy Intermediate Rash Verified 10/24/23 04:44 citalopram [From Celexa] Allergy Intermediate Rash Verified 10/24/23 04:44 metformin Allergy Intermediate Nausea Verified 10/24/23 04:44 Opioid HPI Opioid Management Most Recent Opioid Data: Last Pain Scale 7 10/24/23 07:19 Last ED Pain Assessment 10/24/23 07:18 Ur Phencyclidine Scrn Negative (NEGATIVE) 10/24/23 05:14 Review of Systems ROS Status of ROS 10 or more systems reviewed and unremarkable except as noted in history and below Exam Narrative Exam Narrative: VITALS: I have reviewed the triage vital signs. GENERAL: Screaming obese female NEURO: Alert and oriented. Moves all extremities. Face is symmetric and expressive. EYES: PERRL. No scleral icterus or conjunctival injection. No discharge. HENT: Normocephalic, atraumatic. Hearing is grossly intact. Nares grossly patent and without discharge. Mucous membranes moist. NECK: No JVD. Patient moves neck without restriction. CARDIO: Rhythm regular. Normal rate. No murmur, rub, or gallop. Pulses equal bilaterally in the upper and lower extremity. No lower extremity edema. PULM: Lungs clear to auscultation in all sanchez. No wheezes, rales, or rhonchi. No conversational dyspnea. No splinting, stridor, or accessory muscle use. GI/: Abdomen is soft. Right-sided abdominal tenderness. Normoactive bowel sounds. EXTREMITIES: Symmetric muscle bulk. No joint swelling. No clubbing, cyanosis, or deformity. SKIN: Warm and dry. Normal turgor. No rash or lesions appreciated. PSYCH: Anxious, agitated Constitutional Vital Signs, click to edit/add: Last Vital Signs Temp 97.7 F 10/24/23 04:39 Pulse 98 H 10/24/23 07:15 Resp 20 10/24/23 07:15 BP 151/99 H 10/24/23 07:15 Pulse Ox 98 10/24/23 07:15 O2 Del Method Room Air 10/24/23 04:39 Course Vital Signs Vital signs: Vital Signs Temperature 97.7 F 10/24/23 04:39 Pulse Rate 77 10/24/23 04:39 Respiratory Rate 22 H 10/24/23 04:39 Pulse Oximetry 100 10/24/23 04:39 Oxygen Delivery Method Room Air 10/24/23 04:39 Temperature 97.7 F 10/24/23 04:39 Pulse Rate 98 H 10/24/23 07:15 Respiratory Rate 20 10/24/23 07:15 Blood Pressure 151/99 H 10/24/23 07:15 Pulse Oximetry 98 10/24/23 07:15 Oxygen Delivery Method Room Air 10/24/23 04:39 Medical Decision Making MDM Narrative Medical decision making narrative: 43-year-old female to the emergency department with chief complaint of right sided abdominal pain. Started suddenly 1 hour prior to arrival. Vital stable, the patient is afebrile. Tenderness on exam without peritoneal signs. Basic labs, CT scan to be obtained. Zofran, hydromorphone, fluids are ordered for symptom control. Patient agrees with this plan. Lab Data Labs: Lab Results 10/24/23 10/24/23 Range/Units 04:50 05:14 WBC 13.6 H (4.0-11.0) 10^3/uL RBC 4.92 (4.20-5.40) 10^6/uL Hgb 14.0 (12.0-16.0) g/dL Hct 42.7 (36.0-48.0) % MCV 86.8 (81.0-99.0) fL MCH 28.5 (26.7-34.0) pg MCHC 32.8 (29.9-35.2) g/dL RDW 13.6 (11.0-15.0) % Plt Count 284 (150-450) 10^3/uL MPV 11.0 (9.5-13.5) fL Neut % (Auto) 73.3 (43.0-75.0) % Lymph % (Auto) 20.4 L (20.5-60.0) % [place] % (Auto) 4.7 (1.7-12.0) % Eos % (Auto) 1.0 (0.9-7.0) % Baso % (Auto) 0.3 (0.2-2.0) % Neut # (Auto) 10.0 H (1.4-6.5) 10^3/uL Lymph # (Auto) 2.8 (1.2-3.8) 10^3/uL [place] # (Auto) 0.6 (0.3-0.8) 10^3/uL Eos # (Auto) 0.1 (0.0-0.7) 10^3/uL Baso # (Auto) 0.0 (0.0-0.1) 10^3/uL Abs Immat Gran (auto) 0.04 H (0.00-0.03) 10^3/uL Imm/Tot Granulo (auto) 0.3 (0.0-0.5) % Sodium 139 (136-145) mmol/L Potassium 4.0 (3.5-5.1) mmol/L Chloride 102 (98-107) mmol/L Carbon Dioxide 25.6 (21.0-32.0) mmol/L Anion Gap 15.4 BUN 16.0 (7.0-18.0) mg/dL Creatinine 1.07 H (0.55-1.02) mg/dL Est GFR ( Amer) >60 (>=60) Est GFR (Non-Af Amer) 56 L (>=60) BUN/Creatinine Ratio 15.0 Glucose 235 H (74-106) mg/dL Lactate 1.4 (0.4-2.0) mmol/L Calcium 9.4 (8.5-10.1) mg/dL Total Bilirubin 0.4 (0.2-1.0) mg/dL AST 18 (15-37) U/L ALT 26 (14-59) U/L Alkaline Phosphatase 94 (46-116) U/L Troponin I High Sens <4.0 L (4.0-51.3) pg/mL Total Protein 7.7 (6.4-8.2) g/dL Albumin 3.9 (3.4-5.0) g/dL Globulin 3.8 g/dL Albumin/Globulin Ratio 1.0 Lipase 30.0 (16.0-77.0) U/L Urine Color Lt. yellow (YELLOW) Urine Clarity Clear (CLEAR) Urine pH 6.0 (5.0-9.0) Ur Specific [place] 1.020 (1.005-1.025) Urine Protein Negative (NEG/TRACE) mg/dL Urine Glucose (UA) >=1000 A (NEGATIVE) mg/dL Urine Ketones Trace A (NEGATIVE) mg/dL Urine Occult Blood Large A (NEGATIVE) Urine Nitrite Negative (NEGATIVE) Urine Bilirubin Negative (NEGATIVE) Urine Urobilinogen 0.2 (0.2-1.0) EU/dL Ur Leukocyte Esterase Negative (NEGATIVE) Urine RBC >100 A (0-2) #/HPF Urine WBC 0-2 A (NONE SEEN) #/HPF Ur Squamous Epith Cells Few A (NONE/RARE) #/LPF Urine Crystals None seen (None Seen) #/HPF Urine Bacteria None seen (NONE SEEN) #/HPF Urine Casts None seen (NONE SEEN) #/LPF Urine Mucus Small A (NONE SEEN) Urine Yeast Seen A (NONE SEEN) Ur Culture Indicated? No Urine HCG, Qual Negative (NEGATIVE) Urine Opiates Screen Negative (NEGATIVE) Ur Buprenorphine Scrn Negative (NEGATIVE) Ur Oxycodone Screen Negative (NEGATIVE) Urine Methadone Screen Negative (NEGATIVE) Ur Barbiturates Screen Negative (NEGATIVE) U Tricyclic Antidepress Negative (NEGATIVE) Ur Phencyclidine Scrn Negative (NEGATIVE) Ur Amphetamines Screen Positive A (NEGATIVE) U Methamphetamines Scrn Negative (NEGATIVE) U Benzodiazepines Scrn Negative (NEGATIVE) Urine Cocaine Screen Negative (NEGATIVE) U Cannabinoids Screen Negative (NEGATIVE) Discharge Plan Discharge Stand Alone Forms: Work/School Release, Portal Instructions Chief Complaint: Abdominal Pain Clinical Impression: Calculus of kidney Patient Disposition: Home, Self-Care Condition: Good Prescriptions / Home Meds: New tamsulosin [Flomax] 0.4 mg capsule 0.4 mg PO DAILY Qty: 10 0RF cyclobenzaprine 10 mg tablet 10 mg PO BID PRN (Reason: muscle spasm) Qty: 10 0RF sulfamethoxazole-trimethoprim [Bactrim DS] 800-160 mg tablet 1 tab PO DAILY 5 Days Qty: 5 0RF oxycodone-acetaminophen [Percocet] 5-325 mg tablet 1 tab PO Q8H PRN (Reason: pain) 2 Days Qty: 6 0RF Discontinued meloxicam 15 mg tablet 15 mg PO DAILY tizanidine 4 mg tablet 8 mg PO DAILY cyclobenzaprine 10 mg tablet 10 mg PO BID PRN (Reason: muscle spasm) Qty: 10 0RF diclofenac sodium 75 mg tablet,delayed release (DR/EC) 75 mg PO BID PRN (Reason: pain) Qty: 14 0RF No Action ascorbic acid (vitamin C) [Vitamin C] 500 mg tablet 500 mg PO BID Align 4 mg capsule 4 mg PO DAILY cholecalciferol (vitamin D3) 50 mcg (2,000 unit) capsule 50 mcg PO DAILY ciclopirox 0.77 % cream 1 applic TOPICAL Q12H docusate sodium 100 mg capsule 100 mg PO TID Trulicity 3 mg/0.5 mL pen injector SUBCUT duloxetine 30 mg capsule,delayed release(DR/EC) PO duloxetine 60 mg capsule,delayed release(DR/EC) 60 mg PO DAILY Jardiance 25 mg tablet 25 mg PO DAILY famotidine 40 mg tablet 40 mg PO DAILY fexofenadine 180 mg tablet 180 mg PO Q24H fluoxetine 60 mg tablet 60 mg PO DAILY gabapentin 300 mg capsule 300 mg PO Q12H lamotrigine 200 mg tablet 200 mg PO DAILY Linzess 290 mcg capsule 290 mcg PO DAILY liraglutide [Victoza 3-Ramon] 0.6 mg/0.1 mL (18 mg/3 mL) pen injector 0.6 mg SUBCUT Q24H lisdexamfetamine [Vyvanse] 20 mg capsule 70 mg PO DAILY lisdexamfetamine [Vyvanse] 50 mg capsule 50 mg PO DAILY lurasidone 120 mg tablet 120 mg PO DAILY multivitamin with folic acid [Daily-Karely (with folic acid)] 400 mcg tablet 1 tab PO DAILY pioglitazone 30 mg tablet 30 mg PO DAILY rosuvastatin 10 mg tablet 10 mg PO DAILY sumatriptan succinate 100 mg tablet 100 mg PO PRN (Reason: migraine headache) trazodone 50 mg tablet 50 mg PO DAILY Rx Instructions: HS vitamin B complex Tablet 1 tab PO Q24H Print Language: Tamazight Instructions: Kidney Stones (ED), Hydronephrosis (ED) Referrals: Gautam Rodríguez MD [Physician] - As soon as possible ( [address] [place] [id number] ) Key Andrea [employer]ERAPE[employer] SUPPORT STAFF [Primary Care Provider] - 1 week Bayron Dwyer MD [Physician] - 1 week Documented by User: Irene Mao MD 10/24/23 08:13 HPI HPI - General Adult General Chief complaint: Abdominal Pain Stated complaint: ABDOMINAL PAIN Time Seen by Provider: 10/24/23 04:40 Related Data Home Medications ?Medication ?Instructions ?Recorded ?Confirmed Bifidobacterium infantis 4 mg 4 mg PO DAILY 10/24/23 10/24/23 capsule (Align) ascorbic acid (vitamin C) 500 mg 500 mg PO BID 10/24/23 10/24/23 tablet (Vitamin C) cholecalciferol (vitamin D3) 50 50 mcg PO DAILY 10/24/23 10/24/23 mcg (2,000 unit) capsule ciclopirox 0.77 % topical cream 1 applic topical Q12H 10/24/23 10/24/23 docusate sodium 100 mg capsule 100 mg PO TID 10/24/23 10/24/23 dulaglutide 3 mg/0.5 mL mg subcut 10/24/23 subcutaneous pen injector (Trulicity) duloxetine 30 mg capsule,delayed mg PO 10/24/23 release duloxetine 60 mg capsule,delayed 60 mg PO DAILY 10/24/23 10/24/23 release empagliflozin 25 mg tablet 25 mg PO DAILY 10/24/23 10/24/23 (Jardiance) famotidine 40 mg tablet 40 mg PO DAILY 10/24/23 10/24/23 fexofenadine 180 mg tablet 180 mg PO Q24H 10/24/23 10/24/23 fluoxetine 60 mg tablet 60 mg PO DAILY 10/24/23 10/24/23 gabapentin 300 mg capsule 300 mg PO Q12H 10/24/23 10/24/23 lamotrigine 200 mg tablet 200 mg PO DAILY 10/24/23 10/24/23 linaclotide 290 mcg capsule 290 mcg PO DAILY 10/24/23 10/24/23 (Linzess) liraglutide 0.6 mg/0.1 mL (18 mg/3 0.6 mg subcut Q24H 10/24/23 10/24/23 mL) subcutaneous pen injector (apartum 3-Ramon) lisdexamfetamine 20 mg capsule 70 mg PO DAILY 10/24/23 10/24/23 (Vyvanse) lisdexamfetamine 50 mg capsule 50 mg PO DAILY 10/24/23 10/24/23 (Vyvanse) lurasidone 120 mg tablet 120 mg PO DAILY 10/24/23 10/24/23 multivitamin with folic acid 400 1 tab PO DAILY 10/24/23 10/24/23 mcg tablet (Daily-Karely (with folic acid)) pioglitazone 30 mg tablet 30 mg PO DAILY 10/24/23 10/24/23 rosuvastatin 10 mg tablet 10 mg PO DAILY 10/24/23 10/24/23 sumatriptan succinate 100 mg tablet 100 mg PO PRN migraine headache 10/24/23 trazodone 50 mg tablet 50 mg PO DAILY 10/24/23 10/24/23 vitamin B complex 1 tab PO Q24H 10/24/23 10/24/23 Previous Rx's ?Medication ?Instructions ?Recorded cyclobenzaprine 10 mg tablet 10 mg PO BID PRN muscle spasm #10 10/24/23 tabs oxycodone-acetaminophen 5 mg-325 1 tab PO Q8H PRN pain 2 days #6 10/24/23 mg tablet (Percocet) tabs sulfamethoxazole 800 1 tab PO DAILY 5 days #5 tabs 10/24/23 mg-trimethoprim 160 mg tablet (Bactrim DS) tamsulosin 0.4 mg capsule (Flomax) 0.4 mg PO DAILY #10 caps 10/24/23 Allergies Allergy/AdvReac Type Severity Reaction Status Date / Time cephalexin [From Keflex] Allergy Intermediate Rash Verified 10/24/23 04:44 citalopram [From Celexa] Allergy Intermediate Rash Verified 10/24/23 04:44 metformin Allergy Intermediate Nausea Verified 10/24/23 04:44 Opioid HPI Opioid Management Most Recent Opioid Data: Last Pain Scale 7 10/24/23 07:19 Last ED Pain Assessment 10/24/23 07:18 Ur Phencyclidine Scrn Negative (NEGATIVE) 10/24/23 05:14 Exam Constitutional Vital Signs, click to edit/add: Last Vital Signs Temp 97.7 F 10/24/23 04:39 Pulse 98 H 10/24/23 07:15 Resp 20 10/24/23 07:15 BP 151/99 H 10/24/23 07:15 Pulse Ox 98 10/24/23 07:15 O2 Del Method Room Air 10/24/23 04:39 Course Vital Signs Vital signs: Vital Signs Temperature 97.7 F 10/24/23 04:39 Pulse Rate 77 10/24/23 04:39 Respiratory Rate 22 H 10/24/23 04:39 Pulse Oximetry 100 10/24/23 04:39 Oxygen Delivery Method Room Air 10/24/23 04:39 Temperature 97.7 F 10/24/23 04:39 Pulse Rate 98 H 10/24/23 07:15 Respiratory Rate 20 10/24/23 07:15 Blood Pressure 151/99 H 10/24/23 07:15 Pulse Oximetry 98 10/24/23 07:15 Oxygen Delivery Method Room Air 10/24/23 04:39 Medical Decision Making MDM Narrative Medical decision making narrative: 43-year-old female to the emergency department with chief complaint of right sided abdominal pain. Started suddenly 1 hour prior to arrival. Vital stable, the patient is afebrile. Tenderness on exam without peritoneal signs. Basic labs, CT scan to be obtained. Zofran, hydromorphone, fluids are ordered for symptom control. Patient agrees with this plan. Dr Mao : The patient care was transferred to ct at 7 AM The patient received IV fluid as well as pain medication here urinalysis showed no significant sign for UTI but with her leukocytosis she was covered prophylactically with Bactrim for the next 5 days and I did discuss this plan with the patient The patient also had pain control with Percocet at the plan to go home but with instruction that she is not supposed to take Keflex and Percocet together especially at night she is supposed to use one of them only so that she does not have oversedation The patient to follow-up with urology and she was provided with the urologist on-call address and phone number in addition to the instruction that she is to come back in case of fever or any pain increased The patient is to follow up with primary care physician in next 2-3 days or to return to the emergency department should any of the signs or symptoms worsen or new symptoms develop. The patient agrees with the following Diagnosis and Treatment plan and the patient will be discharged home. Lab Data Labs: Lab Results 10/24/23 10/24/23 Range/Units 04:50 05:14 WBC 13.6 H (4.0-11.0) 10^3/uL RBC 4.92 (4.20-5.40) 10^6/uL Hgb 14.0 (12.0-16.0) g/dL Hct 42.7 (36.0-48.0) % MCV 86.8 (81.0-99.0) fL MCH 28.5 (26.7-34.0) pg MCHC 32.8 (29.9-35.2) g/dL RDW 13.6 (11.0-15.0) % Plt Count 284 (150-450) 10^3/uL MPV 11.0 (9.5-13.5) fL Neut % (Auto) 73.3 (43.0-75.0) % Lymph % (Auto) 20.4 L (20.5-60.0) % [place] % (Auto) 4.7 (1.7-12.0) % Eos % (Auto) 1.0 (0.9-7.0) % Baso % (Auto) 0.3 (0.2-2.0) % Neut # (Auto) 10.0 H (1.4-6.5) 10^3/uL Lymph # (Auto) 2.8 (1.2-3.8) 10^3/uL [place] # (Auto) 0.6 (0.3-0.8) 10^3/uL Eos # (Auto) 0.1 (0.0-0.7) 10^3/uL Baso # (Auto) 0.0 (0.0-0.1) 10^3/uL Abs Immat Gran (auto) 0.04 H (0.00-0.03) 10^3/uL Imm/Tot Granulo (auto) 0.3 (0.0-0.5) % Sodium 139 (136-145) mmol/L Potassium 4.0 (3.5-5.1) mmol/L Chloride 102 (98-107) mmol/L Carbon Dioxide 25.6 (21.0-32.0) mmol/L Anion Gap 15.4 BUN 16.0 (7.0-18.0) mg/dL Creatinine 1.07 H (0.55-1.02) mg/dL Est GFR ( Amer) >60 (>=60) Est GFR (Non-Af Amer) 56 L (>=60) BUN/Creatinine Ratio 15.0 Glucose 235 H (74-106) mg/dL Lactate 1.4 (0.4-2.0) mmol/L Calcium 9.4 (8.5-10.1) mg/dL Total Bilirubin 0.4 (0.2-1.0) mg/dL AST 18 (15-37) U/L ALT 26 (14-59) U/L Alkaline Phosphatase 94 (46-116) U/L Troponin I High Sens <4.0 L (4.0-51.3) pg/mL Total Protein 7.7 (6.4-8.2) g/dL Albumin 3.9 (3.4-5.0) g/dL Globulin 3.8 g/dL Albumin/Globulin Ratio 1.0 Lipase 30.0 (16.0-77.0) U/L Urine Color Lt. yellow (YELLOW) Urine Clarity Clear (CLEAR) Urine pH 6.0 (5.0-9.0) Ur Specific [place] 1.020 (1.005-1.025) Urine Protein Negative (NEG/TRACE) mg/dL Urine Glucose (UA) >=1000 A (NEGATIVE) mg/dL Urine Ketones Trace A (NEGATIVE) mg/dL Urine Occult Blood Large A (NEGATIVE) Urine Nitrite Negative (NEGATIVE) Urine Bilirubin Negative (NEGATIVE) Urine Urobilinogen 0.2 (0.2-1.0) EU/dL Ur Leukocyte Esterase Negative (NEGATIVE) Urine RBC >100 A (0-2) #/HPF Urine WBC 0-2 A (NONE SEEN) #/HPF Ur Squamous Epith Cells Few A (NONE/RARE) #/LPF Urine Crystals None seen (None Seen) #/HPF Urine Bacteria None seen (NONE SEEN) #/HPF Urine Casts None seen (NONE SEEN) #/LPF Urine Mucus Small A (NONE SEEN) Urine Yeast Seen A (NONE SEEN) Ur Culture Indicated? No Urine HCG, Qual Negative (NEGATIVE) Urine Opiates Screen Negative (NEGATIVE) Ur Buprenorphine Scrn Negative (NEGATIVE) Ur Oxycodone Screen Negative (NEGATIVE) Urine Methadone Screen Negative (NEGATIVE) Ur Barbiturates Screen Negative (NEGATIVE) U Tricyclic Antidepress Negative (NEGATIVE) Ur Phencyclidine Scrn Negative (NEGATIVE) Ur Amphetamines Screen Positive A (NEGATIVE) U Methamphetamines Scrn Negative (NEGATIVE) U Benzodiazepines Scrn Negative (NEGATIVE) Urine Cocaine Screen Negative (NEGATIVE) U Cannabinoids Screen Negative (NEGATIVE) Discharge Plan Discharge Stand Alone Forms: Work/School Release, Portal Instructions Chief Complaint: Abdominal Pain Clinical Impression: Calculus of kidney Patient Disposition: Home, Self-Care Condition: Good Prescriptions / Home Meds: New tamsulosin [Flomax] 0.4 mg capsule 0.4 mg PO DAILY Qty: 10 0RF cyclobenzaprine 10 mg tablet 10 mg PO BID PRN (Reason: muscle spasm) Qty: 10 0RF sulfamethoxazole-trimethoprim [Bactrim DS] 800-160 mg tablet 1 tab PO DAILY 5 Days Qty: 5 0RF oxycodone-acetaminophen [Percocet] 5-325 mg tablet 1 tab PO Q8H PRN (Reason: pain) 2 Days Qty: 6 0RF Discontinued meloxicam 15 mg tablet 15 mg PO DAILY tizanidine 4 mg tablet 8 mg PO DAILY cyclobenzaprine 10 mg tablet 10 mg PO BID PRN (Reason: muscle spasm) Qty: 10 0RF diclofenac sodium 75 mg tablet,delayed release (DR/EC) 75 mg PO BID PRN (Reason: pain) Qty: 14 0RF No Action ascorbic acid (vitamin C) [Vitamin C] 500 mg tablet 500 mg PO BID Align 4 mg capsule 4 mg PO DAILY cholecalciferol (vitamin D3) 50 mcg (2,000 unit) capsule 50 mcg PO DAILY ciclopirox 0.77 % cream 1 applic TOPICAL Q12H docusate sodium 100 mg capsule 100 mg PO TID Trulicity 3 mg/0.5 mL pen injector SUBCUT duloxetine 30 mg capsule,delayed release(DR/EC) PO duloxetine 60 mg capsule,delayed release(DR/EC) 60 mg PO DAILY Jardiance 25 mg tablet 25 mg PO DAILY famotidine 40 mg tablet 40 mg PO DAILY fexofenadine 180 mg tablet 180 mg PO Q24H fluoxetine 60 mg tablet 60 mg PO DAILY gabapentin 300 mg capsule 300 mg PO Q12H lamotrigine 200 mg tablet 200 mg PO DAILY Linzess 290 mcg capsule 290 mcg PO DAILY liraglutide [Victoza 3-Ramon] 0.6 mg/0.1 mL (18 mg/3 mL) pen injector 0.6 mg SUBCUT Q24H lisdexamfetamine [Vyvanse] 20 mg capsule 70 mg PO DAILY lisdexamfetamine [Vyvanse] 50 mg capsule 50 mg PO DAILY lurasidone 120 mg tablet 120 mg PO DAILY multivitamin with folic acid [Daily-Karely (with folic acid)] 400 mcg tablet 1 tab PO DAILY pioglitazone 30 mg tablet 30 mg PO DAILY rosuvastatin 10 mg tablet 10 mg PO DAILY sumatriptan succinate 100 mg tablet 100 mg PO PRN (Reason: migraine headache) trazodone 50 mg tablet 50 mg PO DAILY Rx Instructions: HS vitamin B complex Tablet 1 tab PO Q24H Print Language: Tamazight Instructions: Kidney Stones (ED), Hydronephrosis (ED) Referrals: Gautam Rodríguez MD [Physician] - As soon as possible ( [address] [place], [place] [address] ) Key Andrea NP [Primary Care Provider] - 1 week Bayron Dwyer MD [Physician] - 1 week
[2023-10-24] MEDS: HYDROMORPHONE HCL 1 MG/ML CARTRIDGE IVP (05:08)
[2023-10-24] MEDS: ONDANSETRON PF 4 MG/2 ML VIAL IV (05:08)
[2023-10-24 05:09] VITALS: BP 140/92; PULSE 94; O2SAT 100
[2023-10-24 05:09] LABS: Anion Gap 15.4
[2023-10-24 05:12] LABS: Alanine Aminotransferase 26 U/L (14-59); Albumin Level 3.9 g/dL (3.4-5.0); Alkaline Phosphatase 94 U/L (46-116); Aspartate Amino Transferase 18 U/L (15-37); Bilirubin Total 0.4 mg/dL (0.2-1.0); Calcium 9.4 mg/dL (8.5-10.1); Carbon Dioxide 25.6 mmol/L (21.0-32.0); Chloride 102 mmol/L (98-107); Estimated GFR (African America >60 (>=60); Estimated GFR (Non-African Ame 56 (>=60); Globulin 3.8 g/dL; Glucose 235 mg/dL (74-106); Lactate/Lactic Acid 1.4 mmol/L (0.4-2.0); Sodium 139 mmol/L (136-145); Total Protein 7.7 g/dL (6.4-8.2); Troponin I High Sensitivity <4.0 pg/mL (4.0-51.3)
[2023-10-24 05:44] LABS: Bilirubin Urine NEGATIVE (NEGATIVE); Blood Urine LARGE (NEGATIVE); Clarity Urine CLEAR (CLEAR); Color Urine LT. YELLOW (YELLOW); Glucose Urine UA >=1000 mg/dL (NEGATIVE); HCG Qualitative Urine* NEGATIVE (NEGATIVE); Internal Control Within Normal Limits; Ketones Urine TRACE mg/dL (NEGATIVE); Leukocyte Esterase Urine NEGATIVE (NEGATIVE); Nitrite Urine NEGATIVE (NEGATIVE); Protein Urine NEGATIVE (NEG/TRACE); Urobilinogen Urine 0.2 EU/dL (0.2-1.0)
[2023-10-24 05:50] LABS: Urine Microscopic Indicated YES
[2023-10-24 05:53] LABS: Bacteria Urine NONE SEEN #/HPF (NONE SEEN); Cast Seen? NONE SEEN #/LPF (NONE SEEN); Crystals Seen? None Seen #/HPF (None Seen); Mucus Urine SMALL (NONE SEEN); RBC Urine >100 #/HPF (0-2); Squamous Epithelial Cell Urine FEW #/LPF (NONE/RARE); WBC Urine 0-2 #/HPF (NONE SEEN)
[2023-10-24 05:54] LABS: Amphetamine Screen Urine POSITIVE (NEGATIVE); Barbiturates Screen Urine NEGATIVE (NEGATIVE); Benzodiazepines Screen Urine NEGATIVE (NEGATIVE); Buprenorphine Screen Urine NEGATIVE (NEGATIVE); Cannabinoid Screen Urine NEGATIVE (NEGATIVE); Cocaine Screen Urine NEGATIVE (NEGATIVE); Methadone Screen Urine NEGATIVE (NEGATIVE); Methamphetamines Screen Urine NEGATIVE (NEGATIVE); Opiate Screen Urine NEGATIVE (NEGATIVE); Oxycodone Screen Urine NEGATIVE (NEGATIVE); Phencyclidine Screen Urine NEGATIVE (NEGATIVE); Tricyclic Antidepressant Urine NEGATIVE (NEGATIVE); Urine Culture Indicated NO
[2023-10-24] MEDS: KETOROLAC TROMETHAMINE 30 MG/ML VIAL 15 MG IVP (06:35)
[2023-10-24] MEDS: PROMETHAZINE HCL 25 MG in 0.9 % SODIUM CHLORIDE 50 ML 204 MG IV (06:35)
[2023-10-24] MEDS: TAMSULOSIN HCL 0.4 MG CAPSULE PO (07:08)
[2023-10-24] MEDS: CYCLOBENZAPRINE HCL 10 MG TABLET PO (07:08)
[2023-10-24] MEDS: 0.9 % SODIUM CHLORIDE 1,000 ML 999 ML IV (07:09)
[2023-10-24 07:15] VITALS: BP 151/99; PULSE 98; O2SAT 98
== END 2023-10-24 08:35 | disposition home or self-care (01) ==
PROVIDERS: Emergency Provider Student in an Organized Health Care Education/Training Program; PCP Nurse Practitioner
DX: N20.0 Calculus of kidney (principal)
CPT/HCPCS: 36415; 74177; 80053; 80307; 81001; 83605; 83690; 84484; 84703; 85025; 96374; 96375; 99285; J1170; J1885; J2250; J2405; Q9967

== ENCOUNTER 2023-11-16 13:40 | Outpatient (OUT) | payer OTHER, SELFPAY ==
--- NOTE | 2023-11-16 14:51 | P.CN_ITS ---
Consult Note: HPI Data of Consult Patient: new to practice Consult date: 11/16/23 Requesting Physician: Ugo Bourgeois MD Primary Care Provider: Loreto Mcneal NP Consult Narrative Reason for consult: low back, left leg pain Narrative: 43yof who presents for evaluation. worsening low back pain with radiation into left lower extremity. engages in biweekly chiropractic therapy >6 weeks, without lasting benefit. has engaged in >6 weeks of provider directed home exercises, without lasting benefit. most recent advanced imaging was >2 years ago. has had previous lumbar esis, with good benefit. has used flexeril, tizanidine, mobic, voltaren, tramadol, norco. denies adverse med side effects. cc:: CC: Ugo Bourgeois MD Review of Systems ROS Status of ROS 10 or more systems reviewed and unremark able except as noted in history and below Meds Home Medications and Allergies Home Medications ?Medication ?Instructions ?Recorded ?Confirmed ?Type Bifidobacterium infantis 4 mg 4 mg PO DAILY 10/24/23 10/24/23 History capsule (Align) ascorbic acid (vitamin C) 500 mg 500 mg PO BID 10/24/23 10/24/23 History tablet (Vitamin C) cholecalciferol (vitamin D3) 50 50 mcg PO DAILY 10/24/23 10/24/23 History mcg (2,000 unit) capsule ciclopirox 0.77 % topical cream 1 applic topical Q12H 10/24/23 10/24/23 History cyclobenzaprine 10 mg tablet 10 mg PO BID PRN muscle spasm #10 10/24/23 Rx tabs docusate sodium 100 mg capsule 100 mg PO TID 10/24/23 10/24/23 History dulaglutide 3 mg/0.5 mL mg subcut 10/24/23 History subcutaneous pen injector (Trulicity) duloxetine 30 mg capsule,delayed mg PO 10/24/23 History release duloxetine 60 mg capsule,delayed 60 mg PO DAILY 10/24/23 10/24/23 History release empagliflozin 25 mg tablet 25 mg PO DAILY 10/24/23 10/24/23 History (Jardiance) famotidine 40 mg tablet 40 mg PO DAILY 10/24/23 10/24/23 History fexofenadine 180 mg tablet 180 mg PO Q24H 10/24/23 10/24/23 History fluoxetine 60 mg tablet 60 mg PO DAILY 10/24/23 10/24/23 History gabapentin 300 mg capsule 300 mg PO Q12H 10/24/23 10/24/23 History lamotrigine 200 mg tablet 200 mg PO DAILY 10/24/23 10/24/23 History linaclotide 290 mcg capsule 290 mcg PO DAILY 10/24/23 10/24/23 History (Linzess) liraglutide 0.6 mg/0.1 mL (18 mg/3 0.6 mg subcut Q24H 10/24/23 10/24/23 History mL) subcutaneous pen injector (Victoza 3-Ramon) lisdexamfetamine 20 mg capsule 70 mg PO DAILY 10/24/23 10/24/23 History (Vyvanse) lisdexamfetamine 50 mg capsule 50 mg PO DAILY 10/24/23 10/24/23 History (Vyvanse) lurasidone 120 mg tablet 120 mg PO DAILY 10/24/23 10/24/23 History multivitamin with folic acid 400 1 tab PO DAILY 10/24/23 10/24/23 History mcg tablet (Daily-Karely (with folic acid)) oxycodone-acetaminophen 5 mg-325 1 tab PO Q8H PRN pain 2 days #6 10/24/23 Rx mg tablet (Percocet) tabs pioglitazone 30 mg tablet 30 mg PO DAILY 10/24/23 10/24/23 History rosuvastatin 10 mg tablet 10 mg PO DAILY 10/24/23 10/24/23 History sulfamethoxazole 800 1 tab PO DAILY 5 days #5 tabs 10/24/23 Rx mg-trimethoprim 160 mg tablet (Bactrim DS) sumatriptan succinate 100 mg tablet 100 mg PO PRN migraine headache 10/24/23 History tamsulosin 0.4 mg capsule (Flomax) 0.4 mg PO DAILY #10 caps 10/24/23 Rx trazodone 50 mg tablet 50 mg PO DAILY 10/24/23 10/24/23 History vitamin B complex 1 tab PO Q24H 10/24/23 10/24/23 History Allergies Allergy/AdvReac Type Severity Reaction Status Date / Time cephalexin [From Keflex] Allergy Intermediate Rash Verified 08/24/24 04:44 citalopram [From Celexa] Allergy Intermediate Rash Verified 10/24/23 04:44 metformin Allergy Intermediate Nausea Verified 10/24/23 04:44 Exam Narrative Exam Narrative: Psych-alert and oriented x 3. Attentive and appropriate, constitutionally normal, displays normal mood and affect per situation. There are no obvious deficits in memory, reasoning, or intellect.? Skin-no obvious rashes, bruising, erythema noted to the patient's area of pain.? Extremities- extremities are warm with minimal edema and palpable pulses. Lumbar-tenderness to palpation noted in the lumbar spine and paraspinal musculature. Pain is elicited with flexion, extension, and lateral rotation of the lumbar spine. Range of motion is diminished with these motions. Facet lo ading maneuvers are positive. Strength-noted to be unremarkable with the exception of decreased strength rated at 4 out of 5 in left quadriceps femoris, anterior tibialis. Sensory-no notable sensory deficits in the bilateral lower extremities to touch or pinprick in all dermatomal distributions with the exception to decreased sensation to the left L4, 5 dermatomal distribution Coordination remains intact.? Gait remains non-antalgic. Assessment and Plan Assessment and Plan (1) Lumbar stenosis with neurogenic claudication: (2) Lumbar spondylosis: Plan 43yof who presents for evaluation. failed conservative measures, as noted. given symptoms and imaging, coupled with failure to respond to >6 weeks of conservative management, would like her to undergo lumbar mri without contrast. she is in agreement. meds reviewed. will have her discontinue other nsaids and muscle relaxers and use flexeril 10mg tid prn, as well as voltaren 75mg bid prn. she is in agreement. follow up after imaging.
== END 2023-11-16 13:41 | disposition home or self-care (01) ==
PROVIDERS: PCP Nurse Practitioner Family; Visit Provider Anesthesiology
DX: M48.062 Spinal stenosis, lumbar region with neurogenic claudication (principal); M47.816 Spondylosis without myelopathy or radiculopathy, lumbar region
CPT/HCPCS: G0463

== ENCOUNTER 2023-12-04 08:38 | Outpatient (OUT) | payer OTHER, SELFPAY ==
--- OUTSIDE RECORDS SUMMARY | 2023-12-04 08:45 | XMS_ITS | CCD ---
Author Organization [facility] Care Team Providers Care Oracle Etl Developer Name Role Phone Juan Ramon Jean Unavailable [...] Care Provider MD Yo Blank Attending Provider [phone] DO Shawna Mcfadden Primary Care Provider SHAWNA MCFADDEN Referring Unavailable RUMSCHLAG, SHAWNA K Primary Care Unavailable RUMSCHLAG, SHAWNA K Referring Unavailable RUMSCHLAG, SHAWNA K Primary Care Unavailable NON STAFF Primary Care Unavailable Yo Blank Attending Unavailable Yo Blank Admitting Unavailable Rumschlag, Shawna Primary Care Unavailable Yo Blank Attending Unavailable Yo Blank Admitting Unavailable ErynEanMyrtle Admitting Unavailable Shammo, Rory T Primary Care Unavailable ErynEanMyrtle Attending Unavailable SERVICES, [facility] Primary Care Unava ilable SHAMMO, RORY Referring Unavailable RUMSCHLAG, SHAWNA K Primary Care Unavailable SHAMMO, RORY Referring Unavailable RUMSCHLAG, SHAWNA K Primary Care Unavailable PETE SILVER Attending Unavailable PETE SILVER Referring Unavailable RUMSCHLAG, SHAWNA K Primary Care Unavailable PETE SILVER Admitting Unavailable SILVERPETE CLEMENS Attending Unavailable RUMSCHLAG, SHAWNA K Referring Unavailable RUMSCHLAG, SHAWNA K Primary Care Unavailable GAURAV SELLERS Attending Unavailable RUMSCHLAG, SHAWNA K Referring Unavailable RUMSCHLAG, SHAWNA K Primary Care Unavailable DEEPIKA ROBLEDO Attending Unavailable JORGE, CARMEN Referring Unavailable RUMSCHLAG, SHAWNA K Primary Care Unavailable DWAYNE KHOURY Attending Unavail able RUMSCHLAG, SHAWNA K Referring Unavailable SERVICES, [facility] Primary Care Unava ilable Fredis [employer]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 PLANT 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 - TEASELER, Loreto Primary Care Formerly [facility] ider Bk DALE, Ugo Stoddard Attending Unavailable LULY ENGLISH Attending Unavailable GABY JUNE Attending Unavailable ALICIA PRESTON Attending Unavailable LAILA LIEBERMAN Attending Unavailable AMENA GARNER Attending Unavailable RUMSCHLAG, SHAWNA Primary Care Unavailable RUMSCHLAG, SHAWNA Referring Unavailable RUMSCHLAG, SHAWNA Primary Care Unavailable RUMSCHLAG, SHAWNA Referring Unavailable RUMSCHLAG, SHAWNA Referring Unavailable RUMSCHLAG, SHAWNA Primary Care Unavailable RUMSCHLAG, SHAWNA Referring Unavailable RUMSCHLAG, SHAWNA Primary Care Unavailable RUMSCHLAG, SHAWNA Primary Care Unavailable RUMSCHLAG, SHAWNA Referring Unavailable NAVEEN SANCHEZ Attending Unavailable RUMSCHLAG, SHAWNA Primary Care Unavailable SULLIVAN, SIL R Attending Unavailable RUMSCHLAG, SHAWNA Primary Care Unavailable RUMSCHLAG, SHAWNA Referring Unavailable RUMSCHLAG, SHAWNA Primary Care Unavailable RUMSCHLAG, SHAWNA Referring Unavailable RUMSCHLAG, SHAWNA Primary Care Unavailable RUMSCHLAG, SHAWNA Referring Unavailable MYERHOLTZ, LORETO Primary Care Unavailable RUMSCHLAG, SHAWNA Referring Unavailable MYERHOLTZ, LORETO Primary Care Unavailable RUMSCHLAG, SHAWNA Referring Unavailable [...] (antibiotic) (2 sources) Cephalexin Drug Allergy 7 [facility] Serotonin Reuptake Inhibitors (SSRIs) (2 sources) Citalopram Drug Allergy [address] [facility] (20 sources) cephalexin; Translations: [Keflex] Drug Allergy 3 hives [facility] Repository (4 sources) citalopram; Translations: [CeleXA] Drug Allergy 3 AOF, heart palpitation [facility] Repository (20 sources) Cephalexin; Translations: [CEPHALEXIN] Drug Allergy [address] [facility] Work Phone: (20 sources) Citalopram; Translations: [CITALOPRAM] Drug Allergy 7 Hives, anaphylaxis [facility] (5 sources) metFORMIN Drug Allergy Unknown [employer] Other (20 sources) metFORMIN; Translations: [METFORMIN] Drug Allergy 3 Unknown, Unknown Reaction [employer] (10 sources) POISON DEVORAH EXTRACT; Translations: [POISON DEVORAH EXTRACT] Drug Allergy 3 [employer] (9 sources) Metformin And Related Propensity to adverse reactions to drug 4 Other (See Comments) [employer] (1 source) Cephalexin Drug Allergy [address] [facility] Repository (1 source) Citalopram Drug Allergy [address] [facility] Repository (1 source) metFORMIN Drug Allergy [address] [facility] Repository Medications Current Medications Medication Drug Class(es) Dates Sig (Normalized) Sig (Original) [id number] 200 actuat albuterol 0.09 mg/actuat metered dose [...] juices. Orally Once a day Active bifidobacterium animalis [id number] unt / lactobacillus acidophilus [id number] unt oral capsule (1 source) take 1 capsule by mouth once daily probiotic (ALIGN/RISAQUAD) CAPS capsule Take 1 capsule by mouth daily ALIGN Active bifidobacterium infantis 4 mg oral capsule (13 sources) Start: 01-08-20 23 take 1 capsule by mouth once daily Bifidobacterium Infantis (Align) 4 mg capsule Active 4 MG PO Daily April 29, 2023 1:00am blood-glucose meter (TRUE METRIX GLUCOSE METER) misc (7 sources) Start: 06-18-19 19 blood-glucose meter (TRUE METRIX GLUCOSE METER) [facility] [place] [place] use to test BLOOD SUGAR TWICE DAILY 1 each 0 06/17/2018 Active cetirizine hydrochloride 10 mg oral tablet (16 sources) Histamine-1 Receptor Antagonist Start: 02-06-20 20 take 1 tablet by mouth once daily cetirizine (ZyrTEC) 10 mg tablet TAKE 1 TABLET BY MOUTH DAILY 30 tablet 5 02/06/2020 Active cholecalciferol 0.05 mg oral capsule (17 sources) Vitamin D Start: 05-21-19 24 take 2000 [IU] by mouth once daily Cholecalciferol (Vitamin D3) Active 2000 UNIT PO Daily May 21, 2023 12:00am Start: 04-09-2021 take 1 capsule by [facility] in the morning cholecalciferol, vitamin D3, 2,000 units capsule Take 1 capsule (2,000 Units total) by mouth in the morning. 0 04/09/2021 Active take 1 capsule by [facility] every twenty-four hours Vitamin D3 50 [...] mg docusate sodium 100 mg oral capsule (12 sources) Start: 01-07-2023 take 3 capsules by m outh every twenty-four hours Docusate Sodium 100 MG 3 CAPSULES Orally Once a day for 30 days Dec, Active Start: 01-07-2023 take 100 mg by mouth three times daily Docusate Sodium Active 100 MG PO Three times daily April 29, 2023 1:00am trulicity 3 mg/0.5ml solution pen-injector (8 sources) GLP-1 Receptor Agonist Trulicity 3 MG/0.5ML as directed Subcutaneous WEEKLY Active DULoxetine 30 mg oral tablet (8 sources) Serotonin and Norepinephrine Reuptake Inhibitor Start: 05-21-19 take 30 mg by mouth once daily Duloxetine Active 30 MG PO Daily May 21, 2023 12:00am Start: 03-31-2023 End: 04-30-2023 take 1 capsule by mouth in the morning DULoxetine (CYMBALTA) 30 mg capsule Take 1 capsule (30 mg total) by mouth in the morning. 30 capsule 3 04/30/2023 Active take 1 capsule by mo uth once daily DULoxetine (CYMBALTA) 60 MG extended release capsule Take 1 capsule by mouth daily Active empagliflozin 25 mg oral tablet (20 [...] Active ferrous sulfate 325 mg oral tablet (20 sources) Start: 04-09-2020 take 1 tablet by [...] dionna FLUoxetine (PROZAC) 20 MG capsule Take 3 capsules by mouth daily Active fluticasone propionate 0.05 [...] / neomycin 3.5 mg/ml / polymyxin b [id number] unt/ml otic solution (1 source) Aminoglycoside Antibacterial, Polymyxin-class Antibacterial, Corticosteroid Start: 10-22-2021 End: 10-29-2021 cghgdauy-udafmjrrw-bcvvfxiur isone (CORTISPORIN) 3.5-04944-[address] 4 drops into the left ear 3 times daily for 7 days Instill into left Ear TID x 7 days 10 mL 0 10/22/2021 10/29/2021 Active hydrOXYzine hydrochloride 25 mg oral tablet (13 sources) Antihistamine Start: 10-21-2017 take 1 tablet [...] 2023 12:00am linaclotide 0.29 mg oral capsule (2 sources) Guanylate Cyclase-C Agonist Start: 05-21-2023 take 1 capsule by mouth once daily in the morning Linaclotide (Linzess) 290 mcg capsule Active 290 MCG PO Every morning 30 30 May 21, 2023 12:00am 3 ml liraglutide 6 mg/ml pen injector (2 sources) GLP-1 Receptor Agonist Start: 05-21-2023 Liraglutide (Victoza 2-Ramon) 0.6 mg/0.1 mL (18 mg/3 mL) pen injector Active MG SUBCUT May 21, 2023 12:00am Liraglutide (LUCITA TOZA) 18 MG/3ML SOPN SC injection Inject 1.8 mg into the skin daily Active lisdexamfetamine dimesylate 70 mg oral capsule [...] 2023 12:00am meloxicam 15 mg oral tablet (19 sources) Nonsteroidal Anti-inflammatory Drug Start: 05-21-2023 take 30 mg by mouth once daily Meloxicam Active 30 MG PO Daily May 21, 2023 12:00am take 1 tablet by mouth once adele y meloxicam (MOBIC) 15 MG tablet Take 1 tablet by mouth daily Active 10 ml methocarbamol 100 mg/ml injection (14 sources) Muscle Relaxant Start: 10-14-2018 Robaxin 100 mg /mL inj Refills(s) 0 Start Date: 10/14/18 Status: Ordered take 1 tablet by elan three times daily methocarbamol (ROBAXIN) 500 MG tablet Ta ke 1 tablet by mouth 3 times daily Active montelukast 10 mg oral tablet (20 sources) Leukotriene Receptor Antagonist Start: 10-14-2018 take 1 tablet by mouth once daily montelukast (SINGULAIR) 10 mg tablet TAKE 1 TABLET BY MOUTH NIGHTLY 30 tablet 0 07/16/2020 Active fjmvczqa-ankx-JT-ca lcium &mins (THERAGRAN-M) 9 mg iron-400 mcg tablet (7 sources) dmsiexns-jbwq-ZA -c alcium &mins (THERAGRAN-M) 9 mg iron-400 [...] omeprazole 20 mg delayed release oral capsule (13 sources) Proton Pump Inhibitor take 2 capsules [...] Start: 02-05-2023 take 1 tablet by elan every twenty-four hours Trulance 3 MG 1 tablet Orally Once a day for 30 days Jan, Active polyethylene glycol 3350 [id number] mg / potassium chloride 2970 mg / sodium bicarbonate 6740 mg / sodium chloride 5860 mg / sodium sulfate 26778 mg powder for oral solution (2 sources) [...] Nausea, # 20 tab(s), Refills(s) 0, Pharmacy: [id number], [id number], cm, 03/10/19 12:21:00 EST, Height/Length [...] 2023 12:00am take 1 tablet by mouth once adele y rosuvastatin (CRESTOR) 20 MG tablet Take 1 tablet by mouth daily Active Rosuvastatin Leonardo cium Active 1 mg [...] 2 11/03/2018 Active take 1 tablet by [facility] every two hours as needed, then take 1 tablet by mouth twice daily as needed SUMAtriptan Succinate 25 MG 1 tablet at least 2 hours between doses as needed Orally Twice a day Active temazepam 15 mg oral capsule (13 sources) Benzodiazepine take 1 capsule by mouth [...] 10/14/18 Status: Ordered take 2 tablets by [facility] every six hours as needed tiZANidine (ZANAFLEX) 4 MG tablet Take 2 tablets by mouth every 6 hours as needed Active take 2 tablets by [facility] every twenty-four hours tiZANidine HCl 4 MG 2 tablet Orally daily Active take 1 tablet by [facility] every twelve hours tiZANidine HCl 4 MG 1 tablet Orally TWICE A DAY Active topiramate 200 mg oral tablet (13 sources) take 1 tablet by mouth once [...] D Active zonisamide 100 mg oral capsule (13 sources) Anti-epileptic Agent take 1 capsule by mouth once daily zonisamide (ZONEGRAN) 100 MG capsule Take 100 mg by mouth daily Active Completed/Discontinued Medications Medication Drug Class(es) Dates Sig (Normalized) Sig (Original) ascorbic acid 500 mg oral tablet (14 sources) Vitamin C Start: 05-20-2023 End: 05-21-2023 [...] PO Twice daily May 21, 2023 10:20am take 1 tablet by elan th twice daily vitamin C (ASCORBIC ACID) 500 MG tablet Take 1 tablet by mouth 2 times daily Active Dulaglutide (Trulicity) 3 mg/0.5 mL pen injector [...] May 21, 2023 11:36am polyethylene glycol 3350 88473 mg powder for oral solution (7 sources) [...] pain; Translations: [Epigastric pain] Onset: 10-06-2023 Episodic Anxiety disorders (20 sources) Posttraumatic stress [...] Classification Problem Date Documented Da te Episodic/Chronic Administrative/social admission (3 sources) Dietary counseling and surveillance; Translations: [Persons encountering health services in other specified circumstances] Onset: 03-05-2023 Episodic Biliary tract disease (7 sources) Acute cholecystitis; [...] SYSTEM PROVIDED HISTORY: RUQ abd pain. Prior carleen. TECHNOLOGIST PROVIDED HISTORY: RUQ abd pain. Prior [...] significant stool or gas noted. Evidence of qyjz-sf-eblcuwbv diverticulosis of proximal sigmoid colon and descending [...] Zoë Nicole MD 10/07/23 Final result Normal [facility] Comp Metabolic Profon 2023 Albumin [Mass/Vol] 4.1 g/dL Normal 3.5-5.2 [facility] Comment on above: Performed By: #### C DEBORAH ROY CP, LIP #### [facility] [address] [place] [address] Cutting Torch Operator: Domenica Velázquez MD Albumin/Glob Ratio 1.4 Normal 1.0-2.5 [facility] Comment on above: Performed By: #### C DEBORAH ROY CP, LIP #### [facility] [address] [place] [address] Cutting Torch Operator: Domenica Velázquez MD Alkaline Phos 85 U/L Normal 35-104 [facility] Comment on above: Performed By: #### C DP, TROPI, CP, LIP #### [facility] [address] [place], [place] [id number] Cutting Torch Operator: Domenica Velázquez MD ALT [Catalytic activity/Vol] 12 U/L Normal 5-33 [facility] Comment on above: Performed By: #### C DP, TROPI, CP, LIP #### [facility] [address] [place], [place] [id number] Cutting Torch Operator: Domenica Velázquez MD Anion gap [Moles/Vol] 11 mmol/L Normal 9-17 [facility] Comment on above: Performed By: #### C DP, TROPI, CP, LIP #### [facility] [address] [place], [place] [id number] Cutting Torch Operator: Domenica Velázquez MD AST [Catalytic activity/Vol] 14 U/L Normal <32 [facility] Comment on above: Performed By: #### C DP, TROPI, CP, LIP #### [facility] [address] [place], [place] [id number] Cutting Torch Operator: Domenica Velázquez MD Bilirubin [Mass/Vol] 0.2 mg/dL Low 0.3-1.2 [facility] Comment on above: Performed By: #### C DP, TROPI, CP, LIP #### [facility] [address] [place], [place] [id number] Cutting Torch Operator: Domenica Velázquez MD BUN/CRE Ratio 30 High 9-20 [facility] Comment on above: Performed By: #### C DP, TROPI, CP, LIP #### [facility] [address] [place] [address] Cutting Torch Operator: Domenica Velázquez MD Calcium [Mass/Vol] 8.8 mg/dL Normal 8.6-10.4 [facility] Comment on above: Performed By: #### C DP, TROPI, CP, LIP #### [facility] [address] [place] [address] Cutting Torch Operator: Domenica Velázquez MD Chloride [Moles/Vol] 103 mmol/L Normal 98-107 [facility] Comment on above: Performed By: #### C DP, TROPI, CP, LIP #### [facility] [address] [place] [address] Cutting Torch Operator: Domenica Velázquez MD CO2 [Moles/Vol] 25 mmol/L Normal 20-31 [facility] Comment on above: Performed By: #### C DP, TROPI, CP, LIP #### [facility] [address] [place] [address] Cutting Torch Operator: Domenica Velázquez MD Creatinine [Mass/Vol] 0.6 mg/dL Normal 0.5-0.9 [facility] Comment on above: Performed By: #### C DP, TROPI, CP, LIP #### [facility] [address] [place] [address] Cutting Torch Operator: Domenica Velázquez MD GFR/1.73 sq M.predicted among non-blacks MDRD (S/P/Bld) [Vol rate/Area] mL/min/{1.73_m2} Normal >60 [facility] Comment on above: Result Comment: These [...] #### C DP, TROPI, CP, LIP #### [facility] [address] [place] [address] Cutting Torch Operator: Domenica Velázquez MD Glucose [Mass/Vol] 92 mg/dL Normal 70-99 [facility] Comment on above: Performed By: #### C DP, TROPI, CP, LIP #### [facility] [address] [place], [place] [id number] Cutting Torch Operator: Domenica Velázquez MD Potassium [Moles/Vol] 3.6 mmol/L Low 3.7-5.3 [facility] Comment on above: Performed By: #### C DP, TROPI, CP, LIP #### [facility] [address] [place], [place] [phone] Cutting Torch Operator: Domenica Velázquez MD Protein [Mass/Vol] 7.0 g/dL Normal 6.4-8.3 [facility] Comment on above: Performed By: #### C DP, TROPI, CP, LIP #### [facility] [address] [place], [place] [phone] Cutting Torch Operator: Domenica Velázquez MD Sodium [Moles/Vol] 139 mmol/L Normal 135-144 [facility] Comment on above: Performed By: #### C DP, TROPI, CP, LIP #### [facility] [address] [place], [place] [phone] Cutting Torch Operator: Domenica Velázquez MD Urea nitrogen [Mass/Vol] 18 mg/dL Normal 6-20 [facility] Comment on above: Performed By: #### C DP, TROPI, CP, LIP #### [facility] [address] [place], [place] [phone] Cutting Torch Operator: Domenica Velázquez MD Lipaseon 10-07-2023 Lipase [Catalytic activity/Vol] 28 U/L Normal 13-60 [facility] Comment on above: Performed By: #### C DP, TROPI, CP, LIP ####[facility] , [place] [id number] Lab Director: Domenica Velázquez MD Troponinon 10-07-2023 Troponin, High Sens <6 Normal 0-14 [facility] Comment on above: Result Comment: High Sensitivity Troponin values cannot be compared with other Troponin methodologies. Performed By: #### C DP, TROPI, CP, LIP ####[address] , [place] [address] Lab Director: Domenica Velázquez MD CBC with Diffon 10-06-2023 Abs. Basophil 0.03 k/uL Normal 0.00-0.20 [facility] Comment on above: Performed By: #### C DP, TROPI, CP, LIP #### [address] [place] [address] Cutting Torch Operator: Domenica Velázquez MD Abs.Imm.Granulocyte 0.03 k/uL Normal 0.00-0.30 [facility] Comment on above: Performed By: #### C DP, TROPI, CP, LIP #### [address] [place] [address] Cutting Torch Operator: Domenica Velázquez MD Abs.Neutrophil (Seg) 6.50 k/uL Normal 1.50-8.10 [facility] Comment on above: Performed By: #### C DP, TROPI, CP, LIP #### [address] [place] [phone] Cutting Torch Operator: Domenica Velázquez MD Basophils/100 WBC (Bld) 0 % Normal 0-2 [facility] Comment on above: Performed By: #### C DP, TROPI, CP, LIP #### [address] [place], [place] [address] Cutting Torch Operator: Domenica Velázquez MD Eosinophils (Bld) [#/Vol] 0.08 10*3/uL Normal 0.00-0.44 [facility] Comment on above: Performed By: #### C DP, TROPI, CP, LIP #### [address] [place] [phone] Cutting Torch Operator: Domenica Velázquez MD Eosinophils/100 WBC (Bld) 1 % Normal 1-4 [facility] Comment on above: Performed By: #### C DP, TROPI, CP, LIP #### [address] [place], [place] [phone] Cutting Torch Operator: Domenica Velázquez MD Erythrocyte distribution width (RBC) [Ratio] 13.5 % Normal 11.8-14.4 [facility] Comment on above: Performed By: #### C DP, TROPI, CP, LIP #### [address] [place] [id number] Cutting Torch Operator: Domenica Velázquez MD Hematocrit (Bld) [Volume fraction] 40.1 % Normal 36.3-47.1 [facility] Comment on above: Performed By: #### C DP, TROPI, CP, LIP #### [address] [place] [id number] Cutting Torch Operator: Domenica Velázquez MD Hemoglobin (Bld) [Mass/Vol] 13.4 g/dL Normal 11.9-15.1 [facility] Comment on above: Performed By: #### C DP, TROPI, CP, LIP #### [address] [place], [facility] Cutting Torch Operator: Domenica Velázquez MD Immature granulocytes/100 WBC (Bld) 0 % Normal 0 [facility] Comment on above: Performed By: #### C DP, TROPI, CP, LIP #### [address] [place], [facility] Cutting Torch Operator: Domenica Velázquez MD Lymphocytes (Bld) [#/Vol] 2.41 10*3/uL Normal 1.10-3.70 [facility] Comment on above: Performed By: #### C DP, TROPI, CP, LIP #### [address] [place], [place] [phone] Cutting Torch Operator: Domenica Velázquez MD Lymphocytes/100 WBC (Bld) 25 % Normal 24-43 [facility] Comment on above: Performed By: #### C DP, TROPI, CP, LIP #### [address] [place] [address] Cutting Torch Operator: Domenica Velázquez MD MCH (RBC) [Entitic mass] 28.6 pg Normal 25.2-33.5 [facility] Comment on above: Performed By: #### C DP, TROPI, CP, LIP #### [address] [place] [id number] ( Cutting Torch Operator: Domenica Velázquez MD MCHC (RBC) [Mass/Vol] 33.4 g/dL Normal 28.4-34.8 [facility] Comment on above: Performed By: #### C DP, TROPI, CP, LIP #### [address] [place], [place] [address] Cutting Torch Operator: Domenica Velázquez MD MCV (RBC) [Entitic vol] 85.7 fL Normal 82.6-102.9 [facility] Comment on above: Performed By: #### C DP, TROPI, CP, LIP #### [address] [place] [id number] Cutting Torch Operator: Domenica Velázquez MD Monocytes (Bld) [#/Vol] 0.69 10*3/uL Normal 0.10-1.20 [facility] Comment on above: Performed By: #### C DP, TROPI, CP, LIP #### [address] [place], [facility] Cutting Torch Operator: Domenica Velázquez MD Monocytes/100 WBC (Bld) 7 % Normal 3-12 [facility] Comment on above: Performed By: #### C DP, TROPI, CP, LIP #### [address] [place], [facility] Cutting Torch Operator: Domenica Velázquez MD Neutrophil (Seg) 67 % High 36-65 [facility] Comment on above: Performed By: #### C DP, TROPI, CP, LIP #### [address] [place], [facility] Cutting Torch Operator: Domenica Velázquez MD NRBC Automated 0.0 per 100 WBC Normal 0.0 [facility] Comment on above: Performed By: #### C DP, TROPI, CP, LIP #### [address] [place], [place] [address] Cutting Torch Operator: Domenica Velázquez MD Platelet mean volume (Bld) [Entitic vol] 10.5 fL Normal 8.1-13.5 [facility] Comment on above: Performed By: #### C DP, TROPI, CP, LIP #### [address] [place], [facility] Cutting Torch Operator: Domenica Velázquez MD Platelets (Bld) [#/Vol] 292 10*3/uL Normal 138-453 [facility] Comment on above: Performed By: #### C DP, TROPI, CP, LIP #### [address] [place], [facility] Cutting Torch Operator: Domenica Velázquez MD RBC (Bld) [#/Vol] 4.68 10*6/uL Normal 3.95-5.11 [facility] Comment on above: Performed By: #### C DP, TROPI, CP, LIP #### [address] [place], [facility] Cutting Torch Operator: Domenica Velázquez MD WBC (Bld) [#/Vol] 9.7 10*3/uL Normal 3.5-11.3 [facility] Comment on above: Performed By: #### C DP, TROPI, CP, LIP #### [address] [place], [facility] Cutting Torch Operator: Domenica Velázquez MD Basic Metabolic Profon 10-04 Anion gap [Moles/Vol] 10 mmol/L Normal 9-17 [facility] Comment on above: Performed By: #### D BASIA, BMP, CDP, TROPI #### [facility] [address] [place], [place] [phone] Cutting Torch Operator: Domenica Velázquez MD BUN/CRE Ratio 23 High 9-20 [facility] Comment on above: Performed By: #### D BASIA, BMP, CDP, TROPI #### [facility] [address] [place], [place] [id number] Cutting Torch Operator: Domenica Velázquez MD Calcium [Mass/Vol] 8.9 mg/dL Normal 8.6-10.4 [facility] Comment on above: Performed By: #### D BASIA, BMP, CDP, TROPI #### [facility] [facility] [address] [place], [place] [id number] Cutting Torch Operator: Domenica Velázquez MD Chloride [Moles/Vol] 105 mmol/L Normal 98-107 [facility] Comment on above: Performed By: #### D BASIA, BMP, CDP, TROPI #### [facility] [address] [place] [address] Dr. [place], [place] [id number] Cutting Torch Operator: Domenica Velázquez MD CO2 [Moles/Vol] 26 mmol/L Normal 20-31 [facility] Comment on above: Performed By: #### D BASIA, BMP, CDP, TROPI #### [facility] [address] [place], [place] 5025983 Cutting Torch Operator: Domenica Velázquez MD Creatinine [Mass/Vol] 0.6 mg/dL Normal 0.5-0.9 [facility] Comment on above: Performed By: #### D BASIA, BMP, CDP, TROPI #### [facility] [address] [place] [address] Cutting Torch Operator: Domenica Velázquez MD GFR/1.73 sq M.predicted among non-blacks MDRD (S/P/Bld) [Vol rate/Area] mL/min/{1.73_m2} Normal >60 [facility] Comment on above: Result Comment: These [...] #### D BASIA, BMP, CDP, TROPI #### [facility] [address] [place] [address] Cutting Torch Operator: Domenica Velázquez MD Glucose [Mass/Vol] 96 mg/dL Normal 70-99 [facility] Comment on above: Performed By: #### D BASIA, BMP, CDP, TROPI #### [facility] [address] [place] [address] Dr. [place], [place] [id number] Cutting Torch Operator: Domenica Velázquez MD Potassium [Moles/Vol] 3.8 mmol/L Normal 3.7-5.3 [facility] Comment on above: Performed By: #### D BASIA, BMP, CDP, TROPI #### [address] [place] [address] Cutting Torch Operator: Domenica Velázquez MD Sodium [Moles/Vol] 141 mmol/L Normal 135-144 [facility] Comment on above: Performed By: #### D BASIA, BMP, CDP, TROPI #### [facility] [address] [place] [address] Cutting Torch Operator: Domenica Velázquez MD Urea nitrogen [Mass/Vol] 14 mg/dL Normal 6-20 [facility] Comment on above: Performed By: #### D BASIA, BMP, CDP, TROPI #### [facility] [address] [place] [address] [place] [address] Cutting Torch Operator: Domenica Velázquez MD CBC with Diffon 10-05-2023 Abs. Basophil <0.03 Normal 0.00-0.20 [facility] Comment on above: Performed By: #### D BASIA, BMP, CDP, TROPI #### [address] [place] [address] Cutting Torch Operator: Domenica Velázquez MD Abs.Imm.Granulocyte 0.03 k/uL Normal 0.00-0.30 [facility] Comment on above: Performed By: #### D BASIA, BMP, CDP, TROPI #### [address] [place], [place] 9794783 Cutting Torch Operator: Domenica Velázquez MD Abs.Neutrophil (Seg) 5.10 k/uL Normal 1.50-8.10 [facility] Comment on above: Performed By: #### D BASIA, BMP, CDP, TROPI #### [address] [place], [place] [phone] Cutting Torch Operator: Domenica Velázquez MD Basophils/100 WBC (Bld) 0 % Normal 0-2 [facility] Comment on above: Performed By: #### D BASIA, BMP, CDP, TROPI #### [address] [place] [address] Cutting Torch Operator: Domenica Velázquez MD Eosinophils (Bld) [#/Vol] 0.11 10*3/uL Normal 0.00-0.44 [facility] Comment on above: Performed By: #### D BASIA, BMP, CDP, TROPI #### [address] [place], [place] 2996683 Cutting Torch Operator: Domenica Velázquez MD Eosinophils/100 WBC (Bld) 1 % Normal 1-4 [facility] Comment on above: Performed By: #### D BASIA, BMP, CDP, TROPI #### [address] [place] 7262883 Cutting Torch Operator: Domenica Velázquez MD Erythrocyte distribution width (RBC) [Ratio] 13.5 % Normal 11.8-14.4 [facility] Comment on above: Performed By: #### D BASAI, BMP, CDP, TROPI #### [facility] [address] [place], [facility]83 Cutting Torch Operator: Domenica Velázquez MD Hematocrit (Bld) [Volume fraction] 42.6 % Normal 36.3-47.1 [facility] Comment on above: Performed By: #### D BASIA, BMP, CDP, TROPI #### [facility] [address] [place], [facility] Cutting Torch Operator: Domenica Velázquez MD Hemoglobin (Bld) [Mass/Vol] 14.1 g/dL Normal 11.9-15.1 [facility] Comment on above: Performed By: #### D BASIA, BMP, CDP, TROPI #### [address] [place], [facility] Cutting Torch Operator: Domenica Velázquez MD Immature granulocytes/100 WBC (Bld) 0 % Normal 0 [facility] Comment on above: Performed By: #### D BASIA, BMP, CDP, TROPI #### [address] [place], [facility] Cutting Torch Operator: Domenica Velázquez MD Lymphocytes (Bld) [#/Vol] 2.42 10*3/uL Normal 1.10-3.70 [facility] Comment on above: Performed By: #### D BASIA, BMP, CDP, TROPI #### [facility] [address] [place] [address] Cutting Torch Operator: Domenica Velázquez MD Lymphocytes/100 WBC (Bld) 30 % Normal 24-43 [facility] Comment on above: Performed By: #### D BASIA, BMP, CDP, TROPI #### [facility] [address] [place], [place] 5513183 Cutting Torch Operator: Domenica Velázquez MD MCH (RBC) [Entitic mass] 28.8 pg Normal 25.2-33.5 [facility] Comment on above: Performed By: #### D BASIA, BMP, CDP, TROPI #### [facility] [address] [place], [facility]83 Cutting Torch Operator: Domenica Velázquez MD MCHC (RBC) [Mass/Vol] 33.1 g/dL Normal 28.4-34.8 [facility] Comment on above: Performed By: #### D BASIA, BMP, CDP, TROPI #### [facility] [address] [place], [facility] Cutting Torch Operator: Domenica Velázquez MD MCV (RBC) [Entitic vol] 87.1 fL Normal 82.6-102.9 [facility] Comment on above: Performed By: #### D BASIA, BMP, CDP, TROPI #### [address] [place], [place] 6297683 Cutting Torch Operator: Domenica Velázquez MD Monocytes (Bld) [#/Vol] 0.53 10*3/uL Normal 0.10-1.20 [facility] Comment on above: Performed By: #### D BASIA, BMP, CDP, TROPI #### [facility] [address] [place] [address] Dr. [place], [facility]83 Cutting Torch Operator: Domenica Velázquez MD Monocytes/100 WBC (Bld) 7 % Normal 3-12 [facility] Comment on above: Performed By: #### D BASIA, BMP, CDP, TROPI #### [facility] [address] [place], [place] 6451583 Cutting Torch Operator: Domenica Velázquez MD Neutrophil (Seg) 62 % Normal 36-65 [facility] Comment on above: Performed By: #### D BASIA, BMP, CDP, TROPI #### [facility] [address] [place], [place] 8549383 Cutting Torch Operator: Domenica Velázquez MD NRBC Automated 0.0 per 100 WBC Normal 0.0 [facility] Comment on above: Performed By: #### D BASIA, BMP, CDP, TROPI #### [facility] [address] [place], [place] 8484183 Cutting Torch Operator: Domenica Velázquez MD Platelet mean volume (Bld) [Entitic vol] 10.9 fL Normal 8.1-13.5 [facility] Comment on above: Performed By: #### D BASIA, BMP, CDP, TROPI #### [facility] [address] [place], [place] 3318083 Cutting Torch Operator: Domenica Velázquez MD Platelets (Bld) [#/Vol] 296 10*3/uL Normal 138-453 [facility] Comment on above: Performed By: #### D BASIA, BMP, CDP, TROPI #### [address] [place], [place] 4257783 Cutting Torch Operator: Domenica Velázquez MD RBC (Bld) [#/Vol] 4.89 10*6/uL Normal 3.95-5.11 [facility] Comment on above: Performed By: #### D BASIA, BMP, CDP, TROPI #### [address] [place], [facility]83 Cutting Torch Operator: Domenica Velázquez MD WBC (Bld) [#/Vol] 8.2 10*3/uL Normal 3.5-11.3 [facility] Comment on above: Performed By: #### D BASIA, BMP, CDP, TROPI #### [address] [place], [place] 4272883 Cutting Torch Operator: Domenica Velázquez MD CT CHEST PULMONARY EMBOLISM [...] Fernando Marcelino MD 10/05/23 Final result Normal [facility] D-Dimer Teston 10-05-2023 D-Dimer Test 0.30 ug/mL FEU Normal 0.00-0.59 [facility] Comment on above: Result Comment: When combined [...] #### D BASIA, BMP, CDP, TROPI #### [address] [place] [address] Cutting Torch Operator: Domenica Velázquez MD Liver Profileon 10-05-2023 Albumin [Mass/Vol] 4.4 g/dL Normal 3.5-5.2 [facility] Comment on above: Performed By: #### L IVP ####[address] , [facility]83[facility])[phone] Director: Domenica Velázquez MD Albumin/Glob Ratio 1.4 Normal 1.0-2.5 [facility] Comment on above: Performed By: #### L IVP ####[address] , [place] 5671783 Lab Director: Domenica Velázquez MD Alkaline Phos 99 U/L Normal 35-104 [facility] Comment on above: Performed By: #### L IVP ####[address] [place] [address] Lab Director: Domenica Velázquez MD ALT [Catalytic activity/Vol] 13 U/L Normal 5-33 [facility] Comment on above: Performed By: #### L IVP ####[address] , [place] [phone] Lab Director: Domenica Velázquez MD AST [Catalytic activity/Vol] 16 U/L Normal <32 [facility] Comment on above: Performed By: #### L IVP ####[place] [address] , [place] [phone] Director: Domenica Velázquez MD Bilirubin [Mass/Vol] 0.2 mg/dL Low 0.3-1.2 [facility] Comment on above: Performed By: #### L IVP ####[address] , [place] [phone] Director: Domenica Velázquez MD Bilirubin, Indirect Can not be calculated Normal 0.0-1 .0 [facility] Comment on above: Performed By: #### L IVP ####[address] , [place] [phone] Director: Domenica Velázquez MD Bilirubin.indirect [Mass/Vol] mg/dL Normal <0.3 [facility] Comment on above: Performed By: #### L IVP ####[address] , [place] [phone] Director: Domenica Velázquez MD Protein [Mass/Vol] 7.5 g/dL Normal 6.4-8.3 [facility] Comment on above: Performed By: #### L IVP ####[address] , [place] [phone] Director: Domenica Velázquez MD Troponinon 10-05-2023 Troponin, High Sens <6 Normal 0-14 [facility] Comment on above: Result Comment: High Sensitivity Troponin values cannot be compared with other Troponin methodologies. Performed By: #### T ROPI ####[address] , [place] [phone] Director: Domenica Velázquez MD Troponin, High Sens <6 Normal 0-14 [facility] Comment on above: Result Comment: High Sensitivity Troponin values cannot be compared with other Troponin methodologies. Performed By: #### D BASIA, BMP, CDP, TROPI #### [address] [place] [address] Cutting Torch Operator: Domenica Velázquez MD XR CHEST PORTABLEon 10-05-19 [...] Deyanira Lock MD 10/05/23 Final result Normal [facility] CT CERVICAL SPINE WO CONTRAS Ton [...] Andi Montoya MD 04/20/23 Final result Normal [facility] CT Cervical spine WO contras ton 04-20-2023 Radiology Study observation (narrative) [facility] CT HEAD WO CONTRASTon 2023 CT HEAD [...] Andi Montoya MD 04/20/23 Final result Normal [facility] CT Head WO contraston 2023 Radiology Study observation (narrative) [facility] No Panel Informationon 04-[address] abnormal ity identified in the brain. No acute osseous abnormality identified in the cervical spine. [facility] RIS CONSOLIDATED EXAMINATION: CT OF [...] There is no prevertebral soft tissue swelling. [facility] RIS Andi Alvarez MD - 04/20/2023 EXAMINATION: CT OF THE [...] osseous abnormality identified in the cervical spine. [facility] No Panel InformationOrdered By: Andi Montoya on 04-20-[address] [facility] Work Phone: Glucose Glucometer (BldC) [M ass/Vol]on 03-27-2023 Glucose [Mass/Vol] 151 mg/dL High 65-99 [facility] Glucose Poct Glucometerson 0 03-18-2023 Commemt1 Glu2: Cleaned Meter Normal [facility] Comment on above: Result Comment: PERF ORMED BY: [place] [address] PATHOLOGIST ROTARY DRILL RIG OPERATOR SHA VALERA M.D. Performed By: #### G LULS #### Point of Care testing , Glucose [Mass/Vol] 87 mg/dL Normal [facility] Comment on above: Result Comment: [facility] Glucose Reference Range is dependent on time and content of last meal. Glucose of more than 200 mg/dL in a nonstressed, ambulatory subject supports the diagnosis of Diabetes Mellitus. Performed By: #### G LULS #### Point of Care testing , HCG,Urineon 03-18-2023 Beta HCG ( test) Ql (U) Negative Normal [facility] Comment on above: Result Comment: PERF ORMED BY: [place] [address] PATHOLOGIST ROTARY DRILL RIG OPERATOR SHA VALERA M.D. Performed By: #### U HCG #### [address] CBC AND AUTO DIFFon 03-16-19 24 ABSOLUTE BASOPHIL 0.0 X10E9/L Normal 0.0-0.2 [facility] Comment on above: Performed By: #### 2 4331-1, CBCA, CMP, TSHR #### [facility] ([id number]) [address], [address] [place] [address] ABSOLUTE NEUTROPHIL 7.7 X10E9/L High 1.5-6.6 [facility] Comment on above: Performed By: #### 2 4331-1, CBCA, CMP, TSHR #### [facility] ([id number]) [address], [address] [place] [address] Basophils/100 WBC (Bld) 0.3 % Normal [facility] Comment on above: Performed By: #### 2 4331-1, CBCA, CMP, TSHR #### [facility] ([id number]) [address] [address] [place] [address] Eosinophils (Bld) [#/Vol] 0.1 10*3/uL Normal 0.0-0.4 [facility] Comment on above: Performed By: #### 2 4331-1, CBCA, CMP, TSHR #### [facility] ([id number]) [address] [address] [place] [address] Eosinophils/100 WBC (Bld) 1.1 % Normal [facility] Comment on above: Performed By: #### 2 4331-1, CBCA, CMP, TSHR #### [facility] ([id number]) [address] [address] [place] [address] Erythrocyte distribution width (RBC) [Ratio] 14.6 % Normal 11.5-15.0 [facility] Comment on above: Performed By: #### 2 4331-1, CBCA, CMP, TSHR #### [facility] ([id number]) [address] [address] [place] [address] Hematocrit (Bld) [Volume fraction] 45.7 % Normal 35-47 [facility] Comment on above: Performed By: #### 2 4331-1, CBCA, CMP, TSHR #### [facility] ([id number]) [address] [address] [place] [address] Hemoglobin (Bld) [Mass/Vol] 15.0 g/dL Normal 11.7-15.5 [facility] Comment on above: Performed By: #### 2 4331-1, CBCA, CMP, TSHR #### [facility] ([id number]) [address], [address] [address] Lymphocytes (Bld) [#/Vol] 2.4 10*3/uL Normal 1.0-3.5 [facility] Comment on above: Performed By: #### 2 4331-1, CBCA, CMP, TSHR #### [facility] ([id number]) [address] [address] Lymphocytes/100 WBC (Bld) 22.1 % Normal [facility] Comment on above: Performed By: #### 2 4331-1, CBCA, CMP, TSHR #### [facility] ([id number]) [address] [address] MCH (RBC) [Entitic mass] 29.0 pg Normal 27-34 [facility] Comment on above: Performed By: #### 2 4331-1, CBCA, CMP, TSHR #### [facility] ([id number]) [address], [facility] [address] [place] [address] MCHC (RBC) [Mass/Vol] 32.8 g/dL Normal 32-36 [facility] Comment on above: Performed By: #### 2 4331-1, CBCA, CMP, TSHR #### [facility] ([id number]) [address] [address] [place] [address] MCV (RBC) [Entitic vol] 88 fL Normal 80-100 [facility] Comment on above: Performed By: #### 2 4331-1, CBCA, CMP, TSHR #### [facility] ([id number]) [address] [address] [place] [address] Monocytes (Bld) [#/Vol] 0.6 10*3/uL Normal 0-0.9 [facility] Comment on above: Performed By: #### 2 4331-1, CBCA, CMP, TSHR #### [facility] ([id number]) [address], [address] [address] Monocytes/100 WBC (Bld) 5.7 % Normal [facility] Comment on above: Performed By: #### 2 4331-1, CBCA, CMP, TSHR #### [facility] ([id number]) [address] [address] Neutrophils/100 WBC (Bld) 70.8 % Normal [facility] Comment on above: Performed By: #### 2 4331-1, CBCA, CMP, TSHR #### [facility] ([id number]) [address] [address] [place] [address] Platelet mean volume (Bld) [Entitic vol] 9.7 fL Normal 7-12 [facility] Comment on above: Performed By: #### 2 4331-1, CBCA, CMP, TSHR #### [facility] ([id number]) [address] [address] Platelets (Bld) [#/Vol] 303 10*3/uL Normal 150-450 [facility] Comment on above: Performed By: #### 2 4331-1, CBCA, CMP, TSHR #### [facility] ([id number]) [address] [address] [place] [address] RBC COUNT 5.17 X10E12/L Normal 3.80-5.20 [facility] Comment on above: Performed By: #### 2 4331-1, CBCA, CMP, TSHR #### [facility] ([id number]) [address], [address] [place] [address] WBC (Bld) [#/Vol] 10.9 10*3/uL Normal 4.0-11.0 [facility] Comment on above: Performed By: #### 2 4331-1, CBCA, CMP, TSHR #### [facility] ([id number]) [address], [address] [place] [address] COMPREHENSIVE METABOLIC PANE Dirk 03-16-2023 Albumin [Mass/Vol] 4.7 g/dL Normal 3.2-5.3 [facility] Comment on above: Performed By: #### 2 4331-1, CBCA, CMP, TSHR #### [facility] ([id number]) [address], [facility] [address] [place] [address] ALP [Catalytic activity/Vol] 74 U/L Normal 39-130 [facility] Comment on above: Performed By: #### 2 4331-1, CBCA, CMP, TSHR #### [facility] ([id number]) [address], [address] [place] [address] ALT [Catalytic activity/Vol] 22 U/L Normal 0-31 [facility] Comment on above: Performed By: #### 2 4331-1, CBCA, CMP, TSHR #### [facility] ([id number]) [address], [address] [place] [address] Anion gap [Moles/Vol] 12 mmol/L Normal 5-15 [facility] Comment on above: Performed By: #### 2 4331-1, CBCA, CMP, TSHR #### [facility] ([id number]) [address], [address] [place] [address] AST [Catalytic activity/Vol] 20 U/L Normal 0-41 [facility] Comment on above: Performed By: #### 2 4331-1, CBCA, CMP, TSHR #### [facility] ([id number]) [address] [address] [place] [address] Bilirubin [Mass/Vol] 0.5 mg/dL Normal 0.3-1.2 [facility] Comment on above: Performed By: #### 2 4331-1, CBCA, CMP, TSHR #### [facility] ([id number]) [address] [address] [place] [address] Calcium [Mass/Vol] 9.9 mg/dL Normal 8.5-10.5 [facility] Comment on above: Performed By: #### 2 4331-1, CBCA, CMP, TSHR #### [facility] ([id number]) [address] [address] Chloride [Moles/Vol] 105 mmol/L Normal 98-109 [facility] Comment on above: Performed By: #### 2 4331-1, CBCA, CMP, TSHR #### [facility] ([id number]) [address] [address] CO2 [Moles/Vol] 25 mmol/L Normal 22-32 [facility] Comment on above: Performed By: #### 2 4331-1, CBCA, CMP, TSHR #### [facility] ([id number]) [address] [address] [place] [address] Creatinine [Mass/Vol] 0.74 mg/dL Normal 0.40-1.00 [facility] Comment on above: Result Comment: METH OD TRACEABLE TO IDMS STANDARD Performed By: #### 2 4331-1, CBCA, CMP, TSHR #### [facility] ([id number]) [address] [address] [place] [address] eGFR (CKD-EPI) NON-RACE DEPENDENT >90 Normal >59 [facility] Comment on above: Result Comment: Reported eGFR is based on the CKD-EPI 2020 equation that does not use a race coefficient. Performed By: #### 2 4331-1, CBCA, CMP, TSHR #### [facility] ([id number]) [address], [address] [place] [address] Glucose [Mass/Vol] 143 mg/dL High 65-99 [facility] Comment on above: Performed By: #### 2 4331-1, CBCA, CMP, TSHR #### [facility] ([id number]) [address] [address] [place] [address] Potassium [Moles/Vol] 3.8 mmol/L Normal 3.5-5.0 [facility] Comment on above: Performed By: #### 2 4331-1, CBCA, CMP, TSHR #### [facility] ([id number]) [address] [address] [place] [address] Protein [Mass/Vol] 7.8 g/dL Normal 6.0-8.0 [facility] Comment on above: Performed By: #### 2 4331-1, CBCA, CMP, TSHR #### [facility] ([id number]) [address] [address] [place] [address] Sodium [Moles/Vol] 142 mmol/L Normal 134-146 [facility] Comment on above: Performed By: #### 2 4331-1, CBCA, CMP, TSHR #### [facility] ([id number]) [address] [address] [place] [address] Urea nitrogen [Mass/Vol] 17 mg/dL Normal 5-23 [facility] Comment on above: Performed By: #### 2 4331-1, CBCA, CMP, TSHR #### [facility] ([id number]) [address] [address] [place] [address] HGB A1C (GLYCO-HGB)on 2023 Glucose [Mass/Vol] 117 mg/dL Normal [facility] Comment on above: Performed By: #### 2 4331-1, CBCA, CMP, TSHR #### [facility] ([id number]) [address], [facility] [address] [place] [address] HbA1c (Bld) [Mass fraction] 5.7 % High [...] #### 2 4331-1, CBCA, CMP, TSHR #### [facility] ([id number]) [address], [address] [place] [address] Lipid 1996 panelon Cholesterol [Mass/Vol] 132 mg/dL Low 150-200 [facility] Comment on above: Performed By: #### 2 4331-1, CBCA, CMP, TSHR #### [facility] ([id number]) [address], [facility] [address] [place] [address] Cholesterol in HDL [Mass/Vol] 58 mg/dL Normal >39 [facility] Comment on above: Result Comment: HDL <40 mg/dL - High Risk HDL > or = 40mg/dL- Desirable HDL >60 mg/dL - Negative Risk Performed By: #### 2 4331-1, CBCA, CMP, TSHR #### [facility] ([id number]) [address], [facility] [address] [place] [address] Cholesterol in LDL [Mass/Vol] 51 mg/dL Normal <130 [facility] Comment on above: Result Comment: LDL <100 mg/dL - Desirable LDL >160 mg/dL - High Risk Performed By: #### 2 4331-1, CBCA, CMP, TSHR #### [facility] ([id number]) [address] [address] Cholesterol in VLDL [Mass/Vol] 23 mg/dL Normal 0-30 [facility] Comment on above: Performed By: #### 2 4331-1, CBCA, CMP, TSHR #### [facility] ([id number]) [address] [address] CHOLESTEROL:HDL 2.3 Normal 1.0-5.0 [facility] Comment on above: Performed By: #### 2 4331-1, CBCA, CMP, TSHR #### [facility] ([id number]) [address], [address] [address] Triglyceride [Mass/Vol] 114 mg/dL Normal 27-150 [facility] Comment on above: Performed By: #### 2 4331-1, CBCA, CMP, TSHR #### [facility] ([id number]) [address] [address] [employer] SCREENING BILATERAL W C 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 advisor 03-16-2023 [facility] SCREENING BILATERAL W CAD MAMM [...] #### 2 4331-1, CBCA, CMP, TSHR #### [facility] ([id number]) [address] [address], [address] [place] [address] PT - Assessmentson 3 PT - Assessments [id number]#1.00CD:12 7 Normal [facility] ST - Assessmentson 3 ST - Assessments [id number]#1.00CD:127 Normal [facility] Consenton 09-25-2022 Consent [id number]#1.00CD:127 [facility] Outside Recordson 2022 Outside Records [id number]#1.00CD:127 Normal [facility] ST - Orderson 2022 ST - Orders [id number]#1.00CD:127 [facility] ST - Orders [id number]#1.00CD:127 Normal [facility] ST - Otheron 2022 ST - Other [id number]#1.00CD:127 Normal [facility] PAP ACOG PANEL 2: 30 to 65on 05-27-2022 . . Normal [facility] Comment on above: Result Comment: Perf ormed at: WB Performed By: #### 4 [id number] #### [facility] [address] [place] [address] Dr. Do Aguilar Age Gdln ACOG Testing - [facility] Comment on above: Performed By: #### 4 [id number] #### [facility] [address] [place] [address] Dr. Do Aguilar DIAGNOSIS: Comment Normal [facility] Comment on above: Result Comment: NEGA TIVE FOR INTRAEPITHELIAL LESION OR MALIGNANCY. Performed at: WB Performed By: #### 4 [id number] #### [facility] [address] [place] [address] Dr. Do Aguilar HPV Aptima Negative Normal Negative [facility] Comment on above: Result Comment: This nucleic acid amplification test detects fourteen high-risk HPV types (16,18,31,33,35,39,45,51,52,56,58,59,66,68) without differentiation. Performed at: =G Performed By: #### 4 [id number] #### [facility] [address] [place] [address] Dr. Do Aguilar HPV Genotype Reflex Comment Normal [facility] Comment on above: Result Comment: Crit eria not met, HPV Genotype not performed. Performed at: WB Performed By: #### 4 [id number] #### [facility] [address] [place] [address] Dr. Do Aguilar Methodology: Comment [facility] Comment on above: Result Comment: This liquid based ThinPrep(R) pap test was screened with the use of an image guided system. Performed at: WB Performed By: #### 4 [id number] #### [facility] [address] [place] [address] Dr. oD Aguilar Note: Comment Normal [facility] Comment on above: Result Comment: The Pap smear is a screening test designed to aid in the detection of premalignant and malignant conditions of the uterine cervix. It is not a diagnostic procedure and should not be used as the sole means of detecting cervical cancer. Both false-positive and false-negative reports do occur. . Performed at: WB Performed By: #### 4 [id number] #### [facility] [address] [address] [address] Do Aguilar Performed by: Comment Normal [facility] Comment on above: Result Comment: Melissa Ramachandran, [employer] Teacher (ASCP) Performed at: WB Performed By: #### 4 [id number] #### [facility] [address] [place] [address] Dr. Do Aguilar Specimen adequacy: Comment Normal [facility] Comment on above: Result Comment: Sati sfactory for evaluation. Endocervical and/or squamous metaplastic cells (endocervical component) are present. Performed at: WB Performed By: #### 4 [id number] #### [facility] [address] [place] [address] Dr. Do Aguilar HEPATITIS C AB CASCADE TO QU ANT PCR GENOon 02-18-2022 HCV AB <0.1 Normal 0.0-0.9 [facility] Comment on above: Performed By: #### H EPCASC #### [facility] [address] [place] [address] Dr. Do Aguilar Interpretation: Comment Normal [facility] Comment on above: Result Comment: Nega tive Not infected with HCV, unless recent infection is suspected or other evidence exists to indicate HCV infection. Performed By: #### H EPCASC #### [facility] [address] [place] [address] Dr. Do Aguilar LIVER PROFILEon 02-17-2022 Albumin [Mass/Vol] 3.6 g/dL Normal 3.4-5.0 [facility] Comment on above: Performed By: #### L IVER #### [facility] [address] [place] [address] Dr. Do Aguilar Albumin/Globulin [Mass ratio] 0.9 {ratio} Normal [facility] Comment on above: Performed By: #### L IVER #### [facility] [address] [address] [address] Do Aguilar ALP [Catalytic activity/Vol] 79 U/L Normal 46-116 [facility] Comment on above: Performed By: #### L IVER #### [facility] [address] [address] [address] Do Aguilar ALT [Catalytic activity/Vol] 51 U/L Normal 14-59 [facility] Comment on above: Performed By: #### L IVER #### [facility] [address] [address] [address] Do Aguilar AST [Catalytic activity/Vol] 33 U/L Normal 15-37 [facility] Comment on above: Performed By: #### L IVER #### [facility] [address] [address] [address] Do Aguilar BILI, CONJUGATED 0.1 mg/dL Normal 0.0-0.2 [facility] Comment on above: Performed By: #### L IVER #### [facility] [address] [place] [address] Dr. Do Aguilar Bilirubin [Mass/Vol] 0.3 mg/dL Normal 0.2-1.0 [facility] Comment on above: Performed By: #### L IVER #### [facility] [address] [address] [address] Do Aguilar Globulin (S) [Mass/Vol] 4.2 g/dL Normal [facility] Comment on above: Performed By: #### L IVER #### [facility] [address] [address] [address] Do Aguilar Protein [Mass/Vol] 7.8 g/dL Normal 6.4-8.2 [facility] Comment on above: Performed By: #### L IVER #### [facility] [address] [address] [address] Do Aguilar TSHon 02-17-2022 TSH 0.457 uIU/mL Normal 0.358-3.74 0 [facility] Comment on above: Performed By: #### T SH #### [facility] [address] [place], [place] [address] Dr. Do Aguilar VITAMIN B12on 02-17-2022 Cobalamin (Vitamin B12) [Mass/Vol] 1864.0 pg/mL Critically high 193.0-986. 0 [facility] Comment on above: Performed By: #### V ITB12 #### [facility] [address] [place], [place] [address] Dr. Do Aguilar History and Physicalon 12-04 History and Physical [id number]#1.[address] [place] [address] Operative Report - Surgeon/P godwin 12-04-2016 Operative Report - Surgeon/Physician [id number]#1.[address] [place] [address] Coding Summaryon 11-26-2016 Coding Summary CODING DATE: 017 [facility] STATUS: Home PAYOR: Medicaid HMO ADMIT DX: REASON FOR VISIT DX: R10.13 Epigastric pain R10.11 Right upper quadrant pain FINAL DX: PRINCIPAL: K29.70 Gastritis, unspecified, without bleeding SECONDARY: PROCEDURES DOCTOR NAME DATE 13218 Esophagogastroduodenoscopy Ted Richard MD 11/21/2016 flexible, transoral; with biopsy, single or multiple NOTE: The code number assigned matches the documented diagnosis and / or procedure in the patient's chart. However, the narrative phrase printed from the coding software may appear abbreviated, or result in slightly different terminology. Coded By: Rosalba Laureano Date Saved: 11/26/2016 01:09 pm [facility] Consent Formson 11-24-2016 Consent Forms [id number]#1.[facility] Intraoperative Noteon 2016 Intraoperative Note [id number]#1.OTGTIFF [facility] Intraoperative Note [id number]#1.00[facility] Operative Report - Surgeon/P godwin 11-24-2016 Operative Report - Surgeon/Physician DATE OF PROCEDURE: 11/21/2016PREOPERATIVE DIAGNOSIS: Epigastric pain/right upper quadrant pain.POSTOPERATIVE DIAGNOSIS: Moderate gastritis.PROCEDURE PERFORMED: EGD with biopsy x1 from the antrum of the stomach forH. pylori testing.SURGEON: Juan Ramon Jean M.D.ANESTHESIA: Conscious sedation with Versed 6 mg IV, Demerol 50 mg IV.FINDINGS: As above.DISPOSITION: To the [facility] area in fair condition.INDICATIONS: The patient [...] in two weeks.Juan Ramon Jean M.D.JOB #: [id number]: 11/21/2016T: 11/21/2016[Electronically Signed on: 12/03/2016 07:09 EDT] Juan Ramon Jean MD Generated Domain User for [id number][Verified on: 12/03/2016 07:09 EDT] Juan Ramon Jean MD[Transcribed on: 11/21/2016 11:37 EDT]GDU [facility] Telemetry Stripson 7 Telemetry Strips [id number]#1.00OTGTIFF [facility] Telemetry Strips [id number]#1.00[facility] H. Pylori Gastricon 11-22-19 17 H. Pylori Rico Int Ctrl Pass [facility] Comment on above: Order Comment: H. (A NTRUM) Result Comment: Pass Performed By: #### 2 [id number] ####[facility] (DEFAULT)[address] [place] [address] H. Pylori Gastric Negative Normal Negative [facility] Comment on above: Order Comment: H. (A NTRUM) Result Comment: Nega tive Performed By: #### 2 [id number] ####[facility] (DEFAULT)[address] [place] [address] Inpatient Clinical Summaryon 11-21-2016 Inpatient Clinical Summary [facility] SURGERYClinical Discharge SummaryPERSON INFORMATIONName ROSE SANDOVALKARMA CALDERON Age 36 Years 09/[birth year]/Sex FEMALE Language Algerian PCP DEFRANCE, DAVIDMarital Status Med Service Ambulatory SurgeryMRN [id number] Acct# Arrival 11/21/16 07:22:21Visit Reason EGD - EPIGASTRIC ABDOMINAL PAIN Acuity LOS 013 23:19Address:[address] [place] [id number]:PROVIDER INFORMATIONVITALS INFORMATIONVital Sign Triage LatestTemp OralTemp Temporal 36.4 DegC 36.4 DegCTemp IntravascularTemp AxillaryTemp [id number] Sat 100 % 97 %Respiratory Rate 16 [...] INFORMATIONInstructions:Fo llow up:With: Address: When:Juan Ramon Jean [address] [place] [address] [phone] Business (1) Within 2 to 4 weeksComments:Call for follow up appointmentWith: Address: When:DOMENICA OLIVA [address] [place], [place] [phone] Business (1)DIAGNOSISAcute gastritisComment:PHYS DOC NOTES Normal [facility] Inpatient Patient Summaryon 11-21-2016 Inpatient Patient Summary [place] [id number] patient Discharge InstructionsName: KARMA SRDOB: [birth year] Address: [address] [place] [address] Care Provider:Name: DOMENICA OLIVAPhone: Discharge Diagnosis: Acute [...] or business decisions or sign any legal documentsLake [facility] would like to thank you for allowing us to assist you with your healthcare needs. The following includes patient education materials and information regarding your injury/illness.KARMA SR has been given the following list of follow-up instructions, prescriptions, and patient education materials:Follow-up InstructionsWith: Address: When:Juan Ramon Jean [address] [place] [address] [phone] Business (1) Within 2 to 4 weeksComments:Call for follow up appointmentWith: Address: When:DOMENICA OLIVA [address] [place] [address] Business (1)MedicationsDuring the course of [...] the Answerwww.cdc.gov/getsmart GET SMART Know When Antibiotics [place] Department of Health and Human ServicesCenters for Disease Control and Prevention October 2013 [facility] 11-21-2016 [facility] Intraoperative Record [facility] Intra-Op Record Summary Primary Physician: Juan Ramon Jean MD Finalized Date/Time: 11/21/16 08:37:38 Pt. Name: KARMA SR/Sex: 1980 FEMALE Med Rec #: [id number] Physician: Juan Ramon Jean MD Financial #: [id number] Pt. Type: D Room/Bed: / Admit/Disch: 11/21/16 [...] Jane RN Role Performed Surgeon - Primary Newspaper Managing Editor Newspaper Managing Editor Time In 11/21/16 08:06:00 11/21/16 08:06:00 11/21/16 [...] Unfinalizing Freetext Reason for Unfinalizing 11/21/16 08:37 MHDBARONE Modify Pick List Normal [facility] MAG[facility] Endo Postoperative Benjamin rdon 11-21-2016 [facility] Postoperative Record [facility] Phase II Record Summary Primary Physician: Juan Ramon Jean MD Finalized Date/Time: 11/21/16 10:02:07 Pt. Name: ROSE BANEGASKARMA./Sex: 1980 FEMALE Med Rec #: [id number] Physician: Juan Ramon Jean MD Financial #: [id number] Pt. Type: D Room/Bed: / Admit/Disch: 11/21/16 07:22:21 - Institution: [facility] II Case Times EN [facility] Pre-Care Text: Patient is free from s/s [...] have to because of my back problems. 20 Disch instructions reviewed with pt and girlfriend, verbalized understanding. Copy of instructions given to pt. Pt states she'll have to do cooking tonight because she has 5 kids-reminded again what is stated in disch. instructions. 30 Assisted up to BR to vd qs. Enc to C&DB, does effectively. IV discont, bleeding controlled. Pt dressing. 0945 Disch per W/C to private car. Finalized By: Cammy Barroso RN Document Signatures Signed By: Cammy Barroso RN 11/21/16 10:02 [facility] MAG[facility] Endo Preoperative Recor don 11-21-2016 [facility] End[facility] Preoperative Record [facility] Pre-Op Record Summary Primary Physician: Juan Ramon Jean MD Finalized Date/Time: 11/21/16 08:27:58 Pt. Name: KARMA SR /Sex: 1980 FEMALE Med Rec #: [id number] Physician: Juan Ramno Jean MD Financial #: [id number] Pt. Type: D Room/Bed: / Admit/Disch: 11/21/16 [...] Signed By: Cammy Barroso RN 11/21/16 08:27 [facility] Test Urine 1on U Preg Negative [facility] Comment on above: Result Comment: Nega tive Performed By: #### 3 [id number] ####[facility] (DEFAULT)[address] [place] [address] U Preg Internal Control Pass Normal [facility] Comment on above: Result Comment: Pass Performed By: #### 3 [id number] ####[facility] (DEFAULT)[address] [place] [address] Vital Signs Date Time Vital Sign Value Performing Clinician Facility 06-02-2023 14:32-0400 Body mass index (BMI) [Ratio] 36.67 kg/m2 Deepika Robledo MD Work Phone: [facility] 06-02-2023 14:32-0400 Body weight 93.89 kg Deepika Robledo MD Work Phone: [facility] 06-02-2023 14:32-0400 Diastolic blood pressure 102 mm[Hg] Deepika Robledo MD Work Phone: [facility] 06-02-2023 14:32-0400 Heart rate 83 /min Deepika Robledo MD Work Phone: [facility] 06-02-2023 14:32-0400 Systolic blood pressure 136 mm[Hg] Deepika Robledo MD Work Phone: [facility] 05-21-2023 11:22-0400 Body height 160.02 cm [facility] 05-21-2023 11:22-0400 Body mass index (BMI) [Ratio] 36.5 kg/m2 [facility] 05-21-2023 11:22-0400 Body weight 93.44 kg [facility] 05-21-2023 10:39-0400 Body height 160.02 cm [facility] 05-21-2023 10:39-0400 Body mass index (BMI) [Ratio] 36.5 kg/m2 [facility] 05-21-2023 10:39-0400 Body weight 93.49 kg [facility] 05-21-2023 10:39-0400 Diastolic blood pressure 77 mm[Hg] [facility] 05-21-2023 10:39-0400 Heart rate 105 /min [facility] 05-21-2023 10:39-0400 Respiratory rate 18 /min [facility] 05-21-2023 10:39-0400 SaO2% (BldA) [Mass fraction] 95 % [facility] 05-21-2023 10:39-0400 Systolic blood pressure 114 mm[Hg] [facility] 04-28-2023 11:21-0500 Body height 160 cm Gaurav Sellers PA Work Phone: [facility] 04-28-2023 11:21-0500 Body mass index (BMI) [Ratio] 36.14 kg/m2 Gaurav Sellers PA Work Phone: [facility] 04-28-2023 11:21-0500 Body weight 92.53 kg Gaurav Sellers PA Work Phone: [facility] 04-28-2023 11:21-0500 Diastolic blood pressure 82 mm[Hg] Gaurav Sellers PA Work Phone: [facility] 04-28-2023 11:21-0500 Heart rate 87 /min Gaurav Nitenzin PA Work Phone: [facility] [employer] [facility] 04-28-2023 11:21-0500 Respiratory rate 16 /min Gaurav Sellers PA Work Phone: [facility] 04-28-2023 11:21-0500 SaO2% (BldA) [Mass fraction] 97 % Gaurav Sellers PA Work Phone: [facility] [employer] [facility] 04-28-2023 11:21-0500 Systolic blood pressure 122 mm[Hg] Gaurav Sellers PA Work Phone: [facility] [employer] [facility] 04-20-2023 12:41-0500 Body mass index (BMI) [Ratio] 36.49 kg/m2 Shawna Rumschlag DO Work Phone: [facility] 04-20-2023 12:41-0500 Body weight 93.44 kg Shawna Rumschlag DO Work Phone: [facility] 04-20-2023 12:41-0500 Diastolic blood pressure 76 mm[Hg] Shawna Rumschlag DO Work Phone: [facility] 04-20-2023 12:41-0500 Heart rate 83 /min Shawna Rumschlag DO Work Phone: [facility] 04-20-2023 12:41-0500 Respiratory rate 16 /min Shawna Rumschlag DO Work Phone: [facility] 04-20-2023 12:41-0500 SaO2% (BldA) [Mass fraction] 98 % Shawna Rumschlag DO Work Phone: [facility] 04-20-2023 12:41-0500 Systolic blood pressure 129 mm[Hg] Shawna Rumschlag DO Work Phone: [facility] [employer] 04-20-2023 12:39-0500 Body temperature 97.3 [degF] Shawna Rumschlag DO Work Phone: [facility] 03-18-2023 11:30-0500 Diastolic blood pressure 84 mm[Hg] MD Yo Blank Work Phone: [facility] 03-18-2023 11:30-0500 Heart rate 95 /min MD Yo Blank Work Phone: [facility] 03-18-2023 11:30-0500 Respiratory rate 16 /min MD Yo Blank Work Phone: [facility] 03-18-2023 11:30-0500 SaO2% (BldA) [Mass fraction] 99 % MD Yo Blank Work Phone: [facility] 03-18-2023 11:30-0500 Systolic blood pressure 123 mm[Hg] MD Yo Blank Work Phone: [facility] 03-05-2023 09:15-0500 Body height 160.02 cm Gayathri Scally Other [employer] Other 03-05-2023 09:15-0500 Body mass index (BMI) [Ratio] 37.57 kg/m2 Gayathri Scally Other [employer] Other 03-05-2023 09:15-0500 Body weight 96.21 kg Gayathri Scally Other [employer] Other 03-05-2023 09:15-0500 Diastolic blood pressure 89 mm[Hg] Gayathri Scally Other [employer] Other 03-05-2023 09:15-0500 Respiratory rate 18 /min Gayathri Scally Other [employer] Other 03-05-2023 09:15-0500 SaO2% (BldA) [Mass fraction] 96 % Gayathri Scally Other [employer] Other 03-05-2023 09:15-0500 Systolic blood pressure 122 mm[Hg] Gayathri Scally Other [employer] Other 03-02-2023 19:24-0500 Body height 160 cm Sil Sullivan DO Work Phone: [employer] 03-02-2023 19:24-0500 Body mass index (BMI) [Ratio] 36.31 kg/m2 Sil Sullivan DO Work Phone: [employer] 03-02-2023 19:24-0500 Body temperature 98.29 [degF] Sil Sullivan DO Work Phone: [employer] 03-02-2023 19:24-0500 Body weight 92.99 kg Sil Sullivan DO Work Phone: [employer] 03-02-2023 19:24-0500 Diastolic blood pressure 98 mm[Hg] Sil Sullivan DO Work Phone: [employer] 03-02-2023 19:24-0500 Heart rate 82 /min Sil Sullivan DO Work Phone: [employer] 03-02-2023 19:24-0500 Respiratory rate 18 /min Sil Sullivan DO Work Phone: [employer] 03-02-2023 19:24-0500 SaO2% (BldA) [Mass fraction] 98 % Sil Sullivan DO Work Phone: [employer] 03-02-2023 19:24-0500 Systolic blood pressure 139 mm[Hg] Sil Sullivan DO Work Phone: [employer] 02-05-2023 09:20-0500 Body height 160.02 cm Jan Garg Other [employer] Other 02-05-2023 09:20-0500 Body mass index (BMI) [Ratio] 36.66 kg/m2 Jan Garg Other [employer] Other 02-05-2023 09:20-0500 Body weight 93.9 kg Jan Garg Other [employer] Other 01-15-2023 09:45-0500 Body height 160.02 cm Gayathri Scally Other [employer] Other 01-15-2023 09:45-0500 Body mass index (BMI) [Ratio] 36.68 kg/m2 Gayathri Scally Other [employer] Other 01-15-2023 09:45-0500 Body weight 93.94 kg Gayathri Scally Other [employer] Other 01-15-2023 09:45-0500 Diastolic blood pressure 83 mm[Hg] Gayathri Scally Other [employer] Other 01-15-2023 09:45-0500 Respiratory rate 18 /min Gayathri Scally Other [employer] Other 01-15-2023 09:45-0500 SaO2% (BldA) [Mass fraction] 99 % Gayathri Scally Other [employer] Other 01-15-2023 09:45-0500 Systolic blood pressure 119 mm[Hg] Gayathri Scally Other [employer] Other 01-07-2023 10:00-0500 Body height 160.02 cm Jan Garg Other [employer] Other 01-07-2023 10:00-0500 Body mass index (BMI) [Ratio] 36.13 kg/m2 Jan Garg Other [employer] Other 01-07-2023 10:00-0500 Body weight 92.53 kg Jan Garg Other [employer] Other 01-07-2023 10:00-0500 Diastolic blood pressure 74 mm[Hg] Jan Khanovanner Other [employer] Other 01-07-2023 10:00-0500 Systolic blood pressure 118 mm[Hg] Jan Covingtonner Other [employer] Other 08-28-2022 09:00-0400 Body height 160.02 cm Tamar Fitt Other [employer] Other 08-28-2022 09:00-0400 Body mass index (BMI) [Ratio] 35.8 kg/m2 Tamar Fitt Other [employer] Other 08-28-2022 09:00-0400 Body weight 91.67 kg Tamar Fitt Other [employer] Other 07-29-2022 10:15-0400 Body height 160.02 cm Gayathri Scally Other [employer] Other 07-29-2022 10:15-0400 Body mass index (BMI) [Ratio] 35.18 kg/m2 Gayathri Scally Other [employer] Other 07-29-2022 10:15-0400 Body weight 90.08 kg Gayathri Scally Other [employer] Other 07-29-2022 10:15-0400 Diastolic blood pressure 84 mm[Hg] Gayathri Scally Other [employer] Other 07-29-2022 10:15-0400 Respiratory rate 18 /min Gayathri Scally Other [employer] Other 07-29-2022 10:15-0400 SaO2% (BldA) [Mass fraction] 99 % Gayathri Scally Other [employer] Other 07-29-2022 10:15-0400 Systolic blood pressure 127 mm[Hg] Gayathri Scally Other [employer] Other 05-20-2022 11:15-0400 Body height 160.02 cm Gayathri Scally Other [employer] Other 05-20-2022 11:15-0400 Body mass index (BMI) [Ratio] 34.52 kg/m2 Gayathri Scally Other [employer] Other 05-20-2022 11:15-0400 Body weight 88.41 kg Gayathri Scally Other [employer] Other 05-20-2022 11:15-0400 Diastolic blood pressure 82 mm[Hg] Gayathri Scally Other [employer] Other 05-20-2022 11:15-0400 Respiratory rate 18 /min Gayathri Scally Other [employer] Other 05-20-2022 11:15-0400 SaO2% (BldA) [Mass fraction] 97 % Gayathri Scally Other [employer] Other 05-20-2022 11:15-0400 Systolic blood pressure 121 mm[Hg] Gayathri Scally Other [employer] Other 04-08-2022 11:15-0500 Body height 160.02 cm Gayathri Scally Other [employer] Other 04-08-2022 11:15-0500 Body mass index (BMI) [Ratio] 34.49 kg/m2 Gayathri Scally Other [employer] Other 04-08-2022 11:15-0500 Body weight 88.32 kg Gayathri Scally Other [employer] Other 04-08-2022 11:15-0500 Diastolic blood pressure 77 mm[Hg] Gayathri Scally Other [employer] Other 04-08-2022 11:15-0500 Respiratory rate 18 /min Gayathri Scally Other [employer] Other 04-08-2022 11:15-0500 SaO2% (BldA) [Mass fraction] 98 % Gayathri Scally Other [employer] Other 04-08-2022 11:15-0500 Systolic blood pressure 110 mm[Hg] Gayathri Scally Other [employer] Other 04-08-2022 10:15-0500 Body height 160.02 cm Tamar Fitt Other [employer] Other 04-08-2022 10:15-0500 Body mass index (BMI) [Ratio] 34.49 kg/m2 Tamar Fitt Other [employer] Other 04-08-2022 10:15-0500 Body weight 88.32 kg Tamar Fitt Other [employer] Other 02-26-2022 10:00-0500 Body height 160.02 cm Tamar Fitt Other [employer] Other 02-25-2022 11:45-0500 Body height 160.02 cm Gayathri Scally Other [employer] Other 02-25-2022 11:45-0500 Body mass index (BMI) [Ratio] 36.63 kg/m2 Gayathri Scally Other [employer] Other 02-25-2022 11:45-0500 Body weight 93.8 kg Gayathri Scally Other [employer] Other 02-25-2022 11:45-0500 Diastolic blood pressure 78 mm[Hg] Gayathri Scally Other [employer] Other 02-25-2022 11:45-0500 Respiratory rate 18 /min Gayathri Scally Other [employer] Other 02-25-2022 11:45-0500 SaO2% (BldA) [Mass fraction] 97 % Gayathri Scally Other [employer] Other 02-25-2022 11:45-0500 Systolic blood pressure 109 mm[Hg] Gayathri Scally Other [employer] Other 01-14-2022 11:45-0500 Body height 160.02 cm Gayathri Scally Other [employer] Other 01-14-2022 11:45-0500 Body mass index (BMI) [Ratio] 39.37 kg/m2 Gayathri Scally Other [employer] Other 01-14-2022 11:45-0500 Body weight 100.84 kg Gayathri Scally Other [employer] Other 01-14-2022 11:45-0500 Diastolic blood pressure 88 mm[Hg] Gayathri Scally Other [employer] Other 01-14-2022 11:45-0500 Respiratory rate 18 /min Gayathri Scally Other [employer] Other 01-14-2022 11:45-0500 SaO2% (BldA) [Mass fraction] 97 % Gayathri Scally Other [employer] Other 01-14-2022 11:45-0500 Systolic blood pressure 124 mm[Hg] Gayathri Scally Other [employer] Other 12-04-2021 12:00-0400 Body height 160.02 cm Gayathri Scally Other [employer] Other 12-04-2021 12:00-0400 Body mass index (BMI) [Ratio] 39.73 kg/m2 Gayathri Scally Other [employer] Other 12-04-2021 12:00-0400 Body weight 101.74 kg Gayathri Scally Other [employer] Other 12-04-2021 12:00-0400 Diastolic blood pressure 74 mm[Hg] Gayathri Scally Other [employer] Other 12-04-2021 12:00-0400 Respiratory rate 18 /min Gayathri Scally Other [employer] Other 12-04-2021 12:00-0400 SaO2% (BldA) [Mass fraction] 95 % Gayathri Scally Other [employer] Other 12-04-2021 12:00-0400 Systolic blood pressure 110 mm[Hg] Gayathri Scally Other [employer] Other 10-29-2021 11:30-0400 Body height 160.02 cm Yo Blank Other [employer] Other 10-29-2021 11:30-0400 Body mass index (BMI) [Ratio] 38.61 kg/m2 Yo Trinidadyuliya Other [employer] Other 10-29-2021 11:30-0400 Body weight 98.88 kg Yo Trinidadyuliya Other [employer] Other 10-29-2021 11:30-0400 Diastolic blood pressure 74 mm[Hg] Yo Trinidadyuliya Other [employer] Other 10-29-2021 11:30-0400 Systolic blood pressure 111 mm[Hg] Yo Blank Other [employer] Other 10-22-2021 13:26-0400 Body temperature 97.2 [degF] Shawna Rumschlag DO Work Phone: [employer] 10-22-2021 13:26-0400 Diastolic blood pressure 71 mm[Hg] Shawna Rumschlag DO Work Phone: [employer] 10-22-2021 13:26-0400 Heart rate 85 /min Shawna Rumschlag DO Work Phone: [employer] 10-22-2021 13:26-0400 Respiratory rate 16 /min Shawna Rumschlag DO Work Phone: [employer] 10-22-2021 13:26-0400 SaO2% (BldA) [Mass fraction] 94 % Shawna Rumschlag DO Work Phone: [facility] 10-22-2021 13:26-0400 Systolic blood pressure 131 mm[Hg] Shawna Mcfadden DO Work Phone: [facility] [employer] 10-11-2021 23:48-0400 Body height 160 cm Daniel Adkins MD Work Phone: [facility] 10-11-2021 23:48-0400 Body mass index (BMI) [Ratio] 36.67 kg/m2 Daniel Adkins MD Work Phone: [employer] 10-11-2021 23:48-0400 Body temperature 98.6 [degF] Daniel Adkins MD Work Phone: [facility] 10-11-2021 23:48-0400 Body weight 93.89 kg Daniel Adkins MD Work Phone: [facility] 10-11-2021 23:48-0400 Diastolic blood pressure 88 mm[Hg] Daniel Adkins MD Work Phone: [employer] 10-11-2021 23:48-0400 Heart rate 97 /min Daniel Adkins MD Work Phone: [facility] 10-11-2021 23:48-0400 Respiratory rate 16 /min Daniel Adkins MD Work Phone: [employer] 10-11-2021 23:48-0400 SaO2% (BldA) [Mass fraction] 96 % Daniel Adkins MD Work Phone: [facility] 10-11-2021 23:48-0400 Systolic blood pressure 134 mm[Hg] Daniel Adkins MD Work Phone: [facility] Encounters Encounter Date Encounter Type Care Provider Facility Start: 12-01-2023 End: 12-01-2023 ambulatory [facility] Start: 11-30-2023 End: 11-30-2023 ambulatory AMENA GARNER Not Available Start: 11-17-2023 End: 11-17-2023 ambulatory [facility]AWNA RUMSCHLAG [facility] Start: 11-17-2023 End: 11-17-2023 Subsequent hospital visit by physician Tamar Silveira PT [facility] Physical Therapy Comment on above: Arrived Start: 11-16-2023 End: 11-16-2023 ambulatory Ugo Bourgeois MD Facility: [facility] Start: 10-20-2023 End: 10-20-2023 ambulatory SHAWNA RUMSCHLAG [facility] Start: 10-20-2023 End: 10-20-2023 Subsequent hospital visit by physician Jan Olmstead PT [facility] Physical Therapy Comment on above: Arrived Start: 10-08-2023 End: 10-08-2023 ambulatory [facility] Start: 10-06-2023 End: 10-07-2023 Emergency department patient visit [facility] Start: 10-05-2023 End: 10-05-2023 Emergency department patient visit [facility] Start: 10-05-2023 End: 10-05-2023 Emergency department patient [facility] Start: 09-22-2023 End: 09-22-2023 Subsequent hospital visit by physician Jan Olmstead PT [facility] Physical Therapy Start: 09-15-2023 End: 09-15-2023 ambulatory SHAWNA RUMSCHLAG [facility] Start: 09-07-2023 End: 09-07-2023 ambulatory SHAWNA RUMSCHLAG [facility] Start: 09-01-2023 End: 09-01-2023 ambulatory SHAWNA RUMSCHLAG [facility] Start: 08-26-2023 End: 08-26-2023 ambulatory SHAWNA RUMSCHLAG [facility] Start: 08-26-2023 End: 08-26-2023 Subsequent hospital visit by physician Kofi Villegas PT [facility] Physical Therapy Comment on above: Arrived Start: 08-21-2023 End: 08-21-2023 ambulatory SHAWNA RUMSCHLAG [facility] Start: 08-21-2023 End: 08-21-2023 Subsequent hospital visit by physician Jan Olmstead PT [facility] Physical Therapy Comment on above: Arrived Start: 08-13-2023 End: 08-13-2023 ambulatory LAILA LIEBERMAN Not Available Start: 08-11-2023 End: 08-11-2023 ambulatory SHAWNA RUMSCHLAG [facility] Start: 08-11-2023 End: 08-11-2023 Subsequent hospital visit by physician Jan Olmstead PT [facility] Physical Therapy Comment on above: Arrived Start: 08-04-2023 End: 08-04-2023 ambulatory SHAWNA RUMSCHLAG [facility] Start: 07-29-2023 End: 07-29-2023 ambulatory SHAWNA RUMSCHLAG [facility] Start: 07-14-2023 End: 07-14-2023 Subsequent hospital visit by physician Rebecca Skinner PT [facility] Physical Therapy Start: 07-07-2023 End: 07-07-2023 ambulatory SHAWNA RUMSCHLAG [facility] Start: 06-30-2023 End: 06-30-2023 ambulatory SHAWNA RUMSCHLAG [facility] Start: 06-17-2023 End: 06-17-2023 ambulatory SHAWNA RUMSCHLAG [facility] Start: 06-16-2023 End: 06-16-2023 ambulatory SHAWNA RUMSCHLAG [facility] Start: 06-04-2023 End: 06-04-2023 ambulatory SHAWNA RUMSCHLAG [facility] Start: 06-03-2023 End: 06-03-2023 [facility] Start: 06-02-2023 End: 06-02-2023 Office outpatient new 30 minutes Deepika Robledo MD Work Phone: [facility] Comment on above: Mass of upper outer quadrant of right breast (Primary Dx); Abnormal mammogram; Symptomatic mammary hypertrophy Start: 06-02-2023 End: 06-02-2023 ambulatory DEEPIKA ROBLEDO [facility] pital Start: 06-02-2023 ambulatory [facility] Start: 05-25-2023 End: 05-25-2023 ambulatory ALICIA PRESTON Not Available Start: 05-21-2023 End: 05-21-2023 Patient encounter procedure [facility] Work Phone: Start: 05-21-2023 End: 05-21-2023 [facility] Work Phone: Start: 05-20-2023 End: 05-20-2023 ambulatory SHAWNA BOGDAN [facility] Start: 05-19-2023 End: 05-19-2023 ambulatory [facility] EDW[facility] Start: 05-12-2023 Telephone encounter Deepika Robledo MD Work Phone: [facility] Start: 05-06-2023 End: 05-06-2023 ambulatory SHAWNA EDWARG [facility] Start: 05-06-2023 End: 05-06-2023 Subsequent hospital visit by physician Rojas Altamirano 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 Start: 04-07-2023 End: 04-07-2023 ambulatory SHAWNA RUMSCHLAG [facility] Start: 03-31-2023 Emery Clay RN [facility] Start: 03-27-2023 End: 03-27-2023 ambulatory PETE SILVER [facility] Start: 03-24-2023 End: 03-24-2023 ambulatory SHAWNA RUMSCHMIG [facility] Start: 03-19-2023 End: 03-19-2023 ambulatory GABY JUNE Not Available Start: 03-18-2023 Telephone encounter [facility] Start: 03-18-2023 End: 03-18-2023 ambulatory NON STAFF [facility] [employer] Other Start: 03-18-2023 Non-patient / Non-visit MD Yo Blank Work Phone: [facility] Work Phone: Start: 03-17-2023 End: 03-17-2023 ambulatory Jan Garg Other [employer] Other Start: 03-17-2023 Telephone encounter [facility] Start: 03-16-2023 Encounter for genera l adult medical examination without abnormal findings [employer] Start: 03-16-2023 End: 03-16-2023 ambulatory RORY DRIVER [facility] Start: 03-16-2023 End: 03-16-2023 ambulatory LULY ENGLISH Not Available Start: 03-10-2023 End: 03-10-2023 ambulatory SHAWNA RUMSCHLAG [facility] Start: 03-10-2023 End: 03-10-2023 Subsequent hospital visit by physician Tamar Silveira PT [facility] Physical Therapy Comment on above: Arrived Start: 03-05-2023 (FCCCWMNF/U) Weight Management f/u Gayathri Adams [facility] Start: 03-05-2023 End: 03-05-2023 ambulatory Shawna Mcfadden [employer] Other Start: 03-05-2023 Registered Recurring MD Monserrat Blank Work Phone: [facility] Work Phone: Start: 03-02-2023 End: 03-02-2023 Emergency department patient visit Sil Sullivan DO Work Phone: [facility] ED Comment on above: Constipation, unspec ified constipation type (Primary Dx) Start: 02-26-2023 End: 02-26-2023 ambulatory Jan Garg Other [employer] Other Start: 02-26-2023 Telephone encounter [facility] Start: 02-20-2023 Telephone encounter Argenis Storm RN [facility] Comment on above: Medication, DME Start: 02-18-2023 End: 02-18-2023 ambulatory Jan Garg Other [employer] Other Start: 02-18-2023 Telephone encounter Jan [facility] Start: 02-10-2023 Telephone encounter Margaux Olea [facility] Start: 02-05-2023 End: 02-05-2023 ambulatory Jan Garg Other [employer] Other Start: 02-05-2023 Office outpatient visit 15 minutes Jan Garg [facility] Start: 01-15-2023 (FCCWMNF/U) Weight Management f/u Gayathri Adams [facility] Start: 01-15-2023 End: 01-15-2023 ambulatory Gayathri Adams Other [employer] Other Start: 01-07-2023 End: 01-07-2023 ambulatory Jan Garg Other [employer] Other Start: 01-07-2023 Office outpatient visit 15 minutes Jan Garg [facility] Start: 09-25-2022 End: 01-16-2023 ambulatory 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 YUE GRANADO Facility:[facility] Start: 09-25-2022 End: 01-15-2023 Recurring YUE GRANADO [facility] Start: 09-17-2022 End: 09-17-2022 ambulatory Gayathri Adams Other [employer] Other Start: 09-17-2022 Telephone encounter Gayathri Peterson [facility] Start: 08-28-2022 ([facility] FU) [facility] F/ U Registerd Echocardiographer Tamar Sosa [facility] Start: 08-28-2022 End: 08-28-2022 ambulatory Tamar Sosa Other [employer] Other Start: 07-29-2022 [facility] Weight Management f/u Gayathri Brooklynludy [facility] Start: 07-29-2022 End: 07-29-2022 ambulatory Gayathri Adams Other [employer] Other Start: 05-20-2022 [facility] Weight Management f/u Gayathri Brooklynly [facility] Start: 05-20-2022 End: 05-20-2022 ambulatory Gayathri Brooklynludy Other [employer] Other Start: 05-19-2022 End: 05-19-[address] ALICIA PRESTON . Facility:[facility] Start: 05-07-2022 End: 05-08-[address] DOCTOR ARREOLA Facility:[facility] Start: 04-09-2022 End: 04-09-2022 ambulatory Gayathri Adams Other [employer] Other Start: 04-09-2022 Telephone encounter Gayathri last [facility] Start: 04-08-2022 ([facility] WMNI) WMN Initial Provider Tamar Sosa [facility] Start: 04-08-2022 ([facility] Weight Management f/u Gayathri Adams [facility] Start: 04-08-2022 End: 04-08-2022 ambulatory Tamar Fitt Other [employer] Other Start: 02-26-2022 End: 02-26-2022 ambulatory Tamar Fitt Other [employer] Other Start: 02-26-2022 IBT FOR OBESITY GROU P 2-10 30M Tamarsruthi Sosa [facility] Start: 02-25-2022 ([facility] Weight Management f/u Gayathri Adams [facility] Start: 02-25-2022 End: 02-25-2022 ambulatory Gayathri Adams Other [employer] Other Start: 02-17-2022 End: 02-18-2022 ambulatory RORY DRIVER Facility:[facility] Start: 01-29-2022 End: 01-30-2022 ambulatory JOY Reis [facility] Facility:[facility] Start: 01-14-2022 ([facility] Weight Management f/u Gayathri Adams [facility] Start: 01-14-2022 End: 01-14-2022 ambulatory Gayathri Adams Other [employer] Other Start: 12-05-2021 End: 12-05-2021 ambulatory Gayathri Adams Other [employer] Other Start: 12-05-2021 Telephone encounter Gayathri last [facility] Start: 12-04-2021 End: 12-04-2021 ambulatory Gayathri Adams Other [employer] Other Start: 12-04-2021 Nutrition therapy Gayathri gruber [facility] Start: 10-29-2021 End: 10-29-2021 ambulatory Yo Blank Other [employer] Other Start: 10-29-2021 Patient encounter procedure Yo Blank [facility] Start: 10-22-2021 End: 10-22-2021 Emergency department patient visit Shawna Bogdan MARQUEZ Work Phone: [facility] ED Comment on above: Acute diffuse otitis externa of left ear (Primary Dx) Start: 10-11-2021 End: 10-12-2021 Emergency department patient visit Daniel Adkins MD Work Phone: [facility] Comment on above: Pilonidal cyst (Prim romero Dx) Start: 11-21-2016 End: 11-26-2016 Ambulatory [facility] Facility:[facility] Procedures Date Procedure Procedure Detail Performing Clinician Start: 05-25-2023 Microscopic observat ion [Identifier] in Cervix by Cyto stain Deepika Robledo MD Work Phone: Start: 04-20-2023 Ct cervical spine w/ o contrast material Precious Urbina [employer] 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 Work Phone: Start: 04-20-2023 Ct head/brain w/o co ntrast material Precious Urbina [employer] 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 Work Phone: Start: 05-02-2022 Microalbumin [Mass/v olume] in Urine by Test strip Patricia Clay RN Start: 05-02-2020 Adult depression scr eening assessment Argenis Storm RN Start: 08-30-2016 Cholecystectomy YUE PARISH Start: 11-04-2013 nasal surgery YUE ALVARENGA RS Tonsillectomy YUE GRANADO Plan of Treatment Date Care Activity Detail Author Start: 05-24-2026 Screening for malignant neoplasm of cervix Pap Smear [facility] Start: 03-16-2025 Screening for malignant neoplasm of breast Breast cancer screen [facility] Start: 11-10-2024 End: 11-10-2024 Patient encounter procedure 11/10/2024 11:30 AM EDT Office Visit [facility] [address] [place] [id number] Karen Cotter, REDU[employer] 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 [address] [place] [phone] 1 year [facility] Comment on above: 1 year [facility] Start: 06-01-2024 Adult BMI Screening Adult BMI Screen ing [facility] Start: 04-28-2024 Adult BMI Screening Adult BMI Screen ing [facility] Start: 04-28-2024 Tobacco Screening Tobacco Screening [facility] Start: 03-16-2024 Adult BMI Screening Adult BMI Screen ing [facility] Start: 01-30-2024 Adult BMI Screening Adult BMI Screen ing [facility] Start: 01-30-2024 Tobacco Screening Tobacco Screening [facility] Start: 12-29-2023 End: 12-29-2023 Patient encounter procedure 12/29/2023 9:[address] [facility] [address] [place] [phone] Tamar Silveira, PT [facility] Physical Therapy Comment on above: NEEDLING Start: 12-15-2023 End: 12-15-2023 Patient encounter procedure 12/15/2023 9:00 AM EDT Appointment [facility] [address] [place] [phone] Tamar Silveira, PT [facility] Physical Therapy Comment on above: NEEDLING Start: 12-01-2023 End: 12-01-2023 Patient encounter procedure 12/01/2023 9:[address] [facility] [address] [place] [phone] Tamar Silveira, PT NEEDLING [facility] Physical Therapy Comment on above: NEEDLING Start: 11-01-2023 Influenza vaccination Influenza Vacc ine [facility] Start: 10-08-2023 End: 10-08-2023 Patient encounter procedure 10/08/2023 9:00 AM EDT [facility] [address] [facility] [address] [place] [address] Dwayne Khoury MD [address], [facility] [address] [place] [address] [facility] Start: 10-01-2023 Influenza vaccination Flu vaccine (# 1) [facility] Start: 09-01-2023 End: 09-01-2023 Patient encounter procedure 09/01/2023 10:30 AM EDT Appointment [facility] Physical Therapy [address] [place] [phone] Osito Rowan [facility] Physical Therapy Start: 08-26-2023 End: 08-26-2023 Patient encounter procedure 08/26/2023 2:30 PM EDT Appointment [facility] Physical Therapy [address] [place], [place] [phone] Kofi Villegas, PT [facility] Therapy Start: 08-18-2023 End: 08-18-2023 Patient encounter procedure 08/18/2023 9:45 AM EDT Appointment [facility] Physical Therapy [address] [place] [phone] Osito Rowan [facility] Physical Therapy Start: 08-11-2023 End: 08-11-2023 Patient encounter procedure 08/11/2023 1:15 PM EDT Appointment [facility] Physical Therapy [address] [place] [phone] Jan Olmstead, PT DRY NEEDLING [facility] Physical Therapy Comment on above: DRY NEEDLING Start: 08-04-2023 End: 08-04-2023 Patient encounter procedure 08/04/2023 4:15 PM EDT Appointment [facility] Physical Therapy [address] [place] [phone] Osito Rowan [facility] Physical Therapy Start: 06-03-2023 End: 06-03-2023 Patient encounter procedure 06/03/2023 3:30 PM EDT Appointment [facility] Physical Therapy [address] [place] [phone] Osito Rowan [facility] Physical Therapy Start: 06-02-2023 End: 06-02-2023 Patient encounter procedure [facility] Physical Therapy Comment on above: DRY NEEDLING- dont m ove coordinates with son's appt Start: 05-23-2023 Hepatitis B vaccine (3 of 3 - Hep B Twinrix 3-dose series) Hepatitis B vaccine (3 of 3 - Hep B Twinrix 3-dose series) [facility] Start: 05-20-2023 End: 05-20-2023 Patient encounter procedure 05/20/2023 3:15 PM EDT Appointment [facility] Physical Therapy [address] [place] [phone] Rojas Altamirano PTA [facility] Physical Therapy Start: 05-19-2023 End: 05-19-2023 Patient encounter procedure 05/19/2023 12:45 PM EDT Appointment [facility] Physical Therapy [address] [place] [phone] Rebecca Skinner PT DRY NEEDLING- dont move coordinates with son's apptDRY NEEDLING [facility] Physical Therapy Comment on above: DRY NEEDLING- dont m ove coordinates with son's apptDRY NEEDLING Start: 05-05-2023 End: 05-05-2023 Patient encounter procedure [facility] Physical Therapy Comment on above: DRY NEEDLING DRY NEEDLING- dont m ove coordinates with son's appt Start: 05-03-2023 Urine screening for protein Urine Microalbumin [facility] Start: 04-28-2023 End: 04-28-2023 Patient encounter procedure 04/28/2023 10:45 AM EST Office Visit [facility] [address] [place] [phone] Gaurav Sellers, PA [address] [place], [place] [phone] [facility] Start: 04-21-2023 End: 04-21-2023 Patient encounter procedure [facility] Physical Therapy Comment on above: DRY NEEDLING DRY NEEDLING- jd gibson coordinates with son's appt Start: 04-07-2023 End: 04-07-2023 Patient encounter procedure 04/07/2023 2:15 PM EST Appointment [facility] Physical Therapy [address] [place] [phone] Rebecca Skinner, PT DRY NEEDLING [facility] Physical Therapy Comment on above: DRY NEEDLING Start: 03-27-2023 End: 03-27-2023 Admission to same day surgery center 03/27/2023 1:27 PM EST - 03/27/2023 1:33 PM EST Surgery [facility] [address] [place] [phone] Pete Silver MD [address] [place], [place] [phone] INJECTION BLOCK SACROILIAC JOINT [90766 (CPT )] [facility] Comment on above: INJECTION BLOCK SACR OILIAC JOINT [57406 (CPT )] Start: 03-27-2023 End: 03-27-2023 Inject si joint arthrgrphy&/anes/ster oid w/monika INJECTION BLOCK SACROILIAC JOINT Disorder of sacrum 03/27/2023 1:27 PM EST [facility] Start: 03-27-2023 Subsequent hospital visit by physician 03/27/2023 1:27 PM EST Hospital Encounter [facility] [address] [place] [phone] Pete Silver MD [address] [place] [place] [phone] [facility] Start: 03-24-2023 End: 03-24-2023 Patient encounter procedure 03/24/2023 2:15 PM EST Appointment [facility] Physical Therapy [address] [place] [address] Rebecca Skinner, IRV[place] DRY NEEDLING [facility] Physical Therapy Comment on above: DRY NEEDLING Start: 03-19-[address] [facility] Start: 03-16-2023 End: 03-16-2023 Patient encounter procedure 03/16/2023 11:45 AM EST Appointment [facility] - Mammogram DEXA [address] [place] [address] [facility] - Mammogram DEXA Start: 03-10-2023 End: 03-10-2023 Patient encounter procedure 03/10/2023 2:30 PM EST Appointment [facility] Physical Therapy [address] [place] [id number] Rebecca Skinner, IRVING [facility] Physical Therapy Start: 09-30-2022 Influenza vaccination Flu vaccine (# 1) [facility] Start: 10-31-2021 Influenza vaccination Flu vaccine (# 1) [facility] Start: 09-03-2021 DTaP,Tdap and Td Vaccines (1 - Tdap) DTaP,Tdap and Td Vaccines (1 - Tdap) [facility] Start: 09-03-2021 DTaP/Tdap/Td vaccine (1 - Tdap) DTaP/Tdap/Td vaccine (1 - Tdap) [facility] Start: 05-02-2021 Depression Screening Depression Scre ening [facility] Start: 2020 Lipid panel Lipids [facility] Start: 01-04-2020 Diabetic foot examination Diabetic Foot Exam [facility] Start: 09-25-2015 Diabetes screen Diabetes screen [facility] Start: 2010 Screening for malignant neoplasm of cervix [facility] Start: 2001 Screening for malignant neoplasm of cervix Pap smear [facility] Start: 09-25-1999 DTaP/Tdap/Td vaccine (1 - Tdap) DTaP/Tdap/Td vaccine (1 - Tdap) [facility] Start: 1998 Adult BMI Follow Up Plan Adult BMI Follow Up Plan [facility] Start: 1998 Hepatitis C screening Hepatitis C sc reen [facility] Start: 09-25-1995 HIV screening HIV screen [facility] Start: 1993 Varicella vaccine (1 of 2 - 13+ 2-dose series) Varicella vaccine (1 of 2 - 13+ 2-dose series) [facility] Start: 1992 Depression Screen Depression Screen [facility] Start: 1992 Depression Screening Depression Scre ening [facility] Start: 1990 Lipid panel Lipids [place] Brandyn [facility] Start: 1981 Varicella vaccine (1 of 2 - 2-dose childhood series) Varicella vaccine (1 of 2 - 2-dose childhood series) [facility] Start: 03-27-1981 COVID-19 Vaccine (#1) COVID-19 Vacci ne (#1) [facility] Start: 1980 Glaucoma screening Diabetic Op hthalmology Exam [facility] Start: 1980 Hepatitis B vaccine (1 of 3 - 3-dose series) Hepatitis B vaccine (1 of 3 - 3-dose series) [facility] Inject si joint arthrgrphy&/anes/ster oid w/monika INJECTION BLOCK SACROILIAC JOINT Disorder of sacrum [facility] Njx dx/ther agt pvrt facet jt lmbr/sac 1 level INJECTION BLOCK NERVE MEDIAL BRANCH Lumbosacral spondylosis without myelopathy [facility] Immunizations Immunization Date Immunization Notes Care Provider Saundra [facility] 12-22-2022 influenza virus vaccine, unspecified formulation Deepika Robledo MD Work Phone: [facility] 12-19-2018 influenza, injectabl e, quadrivalent, preservative free Argenis Storm RN [facility] 12-02-2017 influenza, injectabl e, quadrivalent, preservative free Argenis Storm RN [facility] 12-02-2017 pneumococcal conjuga te vaccine, 13 valent Argenis Storm RN [facility] 10-10-2016 influenza virus vaccine, unspecified formulation Argenis Storm RN [facility] 12-19-2013 influenza virus vaccine, live, attenuated, for intranasal use Argenis Turkyuri ADHIKARI [facility] 12-03-2012 influenza virus vaccine, whole virus Argenis Turkyuri ADHIKARI [facility] 12-29-2011 influenza virus vaccine, whole virus Argenis Storm RN [facility] 12-23-2010 influenza virus vaccine, whole virus Argenis Turkyuri ADHIKARI [facility] 12-18-2008 influenza virus vaccine, whole virus Argenis Turkyuri ADHIKARI [facility] Payers Date Payer Category Payer Unknown 2021 Self-pay [id number] 2002 Medicaid [employer] [id number] 2002-Present [phone] [address] [place] [address] [id number] [id number] 1980 Unknown [id number] 2.840.1.652157.3.579.2.593 1980 Unknown [id number] 2.840.1.821662.3.579.2.593 1980 Unknown [id number] 2.840.1.098002.3.579.2.593 1980 Unknown [id number] 2.840.1.754678.3.579.2.593 1980 Unknown [id number] 2.16840.1.735560.3.579.2.727 1980 Unknown [id number] 2.16840.1.565048.3.579.2.1286 1980 Unknown [id number] 2.16840.1.297116.3.579.2.128 1980 Unknown [id number] 2.840.1.854721.3.579.2.1286 1980 Unknown [id number] 2.16840.1.242412.3.579.2.128 1980 Unknown [id number] 2.16840.1.657749.3.579.2.1285 1980 Unknown [id number] 2.16840.1.628081.3.579.2.1285 1980 Unknown [id number] 2.16840.1.088716.3.579.2.1285 1980 Unknown [id number] 2.16840.1.790131.3.579.2.1285 1980 Unknown [id number] 2.840.1.217711.3.579.2.1285 1980 Unknown [id number] 2.840.1.637427.3.579.2.1285 1980 Unknown [id number] 2.840.1.814762.3.579.2.196 1980 Unknown [id number] 2.840.1.336948.3.579.2.1258 1980 Unknown [id number] 2.840.1.525671.3.579.2.1258 1980 Unknown [id number] 2.840.1.095247.3.579.2.1258 1980 Unknown [id number] 2.840.1.494205.3.579.2.1258 1980 Unknown [id number] 2.16840.1.371613.3.579.2.1258 1980 Unknown [id number] 2.16840.1.062115.3.579.2. 1980 Unknown [id number] 2.16840.1.075385.3.579.2. 1980 Unknown [id number] 2.840.1.727347.3.579.2. 1980 Unknown [id number] 2.16.840.1.738415.3.579.2.173 1980 Unknown [id number] 2.16.840.1.939275.3.579.2. 1980 Unknown [id number] 2.16.840.1.403913.3.579.2. 1980 Unknown [id number] 2.16.840.1.302971.3.579.2. 1980 Unknown [id number] 2.16.840.1.862666.3.579.2. 1980 Unknown [id number] 2.16.840.1.194150.3.579.2. 1980 Unknown [id number] 2.16840.1.232354.3.579.2. 1980 Unknown [id number] 2.16840.1.021810.3.579.2. 1980 Unknown [id number] 2.16840.1.407348.3.579.2. 1980 Unknown [id number] 2.16840.1.962018.3.579.2. 1980 Unknown [id number] 2.16840.1.111585.3.579.2. 1980 Unknown [id number] 2.16840.1.146415.3.579.2. 1980 Unknown [id number] 2.16.840.1.764471.3.579.2. 1980 Unknown [id number] 2.16840.1.340666.3.579.2. 1980 Unknown [id number] 2.16840.1.852847.3.579.2. 1980 Unknown [id number] 2.16.840.1.736479.3.579.2. 1980 Unknown [id number] 2.16840.1.955554.3.579.2.173 1980 Unknown [id number] 2.16.840.1.278562.3.579.2. 1980 Unknown [id number] 2.16.840.1.959887.3.579.2. 1980 Unknown [id number] 2.16.840.1.288360.3.579.2. 1980 Unknown [id number] 2.16.840.1.518582.3.579.2. 1980 Unknown [id number] 2.16.840.1.233714.3.579.2. 1980 Unknown [id number] 2.16.840.1.269561.3.579.2. 1980 Unknown [id number] 2.16840.1.588414.3.579.2. 1980 Unknown [id number] 2.16840.1.674241.3.579.2. 1980 Unknown [id number] 2.16.840.1.099797.3.579.2. 1980 Unknown [id number] 2.16840.1.527512.3.579.2. 1980 Unknown [id number] 2.16840.1.014127.3.579.2.173 1959 Medicaid [id number] Unknown [id number] 2.16840.1.315852.3.579.2.531 Unknown [id number] 2.16840.1.871597.3.579.2.531 Unknown [id number] 2.16840.1.551841.3.579.2.531 Social History Date Type Detail Facility Start: 09-02-2017 End: 11-11-2023 Tobacco smoking status UTIS Never [facility] Start: 09-02-2017 End: 11-11-2023 Tobacco use and exposure Smokeless tobacco non-user [facility] Work Phone: Start: 10-11-2021 End: 11-11-2023 Alcohol intake Current non-drinker of alcohol (finding) [employer] Phone: Start: 1980 Sex Assigned At Not on file [facility] [employer] Phone: Start: 10-01-2021 End: 10-22-2021 Exposure to SARS-CoV-2 (event) Not sure [employer] Phone: Start: 10-11-2021 End: 11-11-[address] [facility] Tobacco smoking status Never [facility] Start: 10-11-2021 End: 11-11-2023 History of Social function [facility] Start: 1980 Sex Assigned At Female F [facility] How often to you hav e a drink containing alcohol? Never [facility] [employer] Procedure Code Equipment Code Equipment Origin al Text Equipment Identifier Dates [place] Sut 5.5mm 2 Ft Crkscr Fbrwr Shldr 3 Pk 14.7mm Strl Ea=Bill-Only Rpl [id number] - [id number] Start: 05-15-2022 Use to test BLOO D SUGAR TWICE DAILY [id number] Start: 05-28-2020 Use to test BLOO D SUGAR TWICE DAILY, Diagnosis: E11.9 [id number] Start: 03-08-2020 Clinical Notes 10-22-2021 to 10-20-2023 Jan Olmstead, PT - 10/20/2023 9:45 AM Filomena Nassar - 09/22/2023 1:15 PM Kofi Lerma, PT - 08/26/2023 2:30 PM Filomena Nassar - 08/21/2023 10:45 AM EDTPatient InstructionsAttachments Note Date & Type Note Facility 10-20-2023 History of Presen t illness Narrative [facility] Outpatient Physical Therapy Daily Note Patient: Karma Whitehead : 1980 CSN #: [id number] Referring Physician: Shawna Mcfadden DO Date: 10/20/2023 Treatment Diagnosis: LBP, cervical spine pain Onset Date: 02/18/23 PT Insurance Information: [employer] [facility] Total # of Visits Approved: 32 Per [...] Goals (Total # of Visits to Date: ) Short Term Goals Time Frame for Short Term Goals: 3 visits Short Term Goal 1: Initiate HEP and progress as tolerated including reviewing proper posture.-met Short Term Goal 2: Pt will report relief in her complaints of pain in the cervical area and her LB area.-met Custodial Goals Time Frame for Financial Data Analyst Goals : 6 visits Financial Data Analyst Goal 1: Pt will be independent and compliant with exercise while maintaining improved posture 50% of the time - not met Financial Data Analyst Goal 2: Pt will be able to perform full cervical ROM without increase complaints of baseline pain with initiation to demonstrate imporved control of pain -NOT MET: continued cervical spine pain. Custodial Goal 3: Pt will report 40% improvement in overall complaints and improved tolerance to her job tasks - 40% improved. Financial Data Analyst Goal 4: Pt kvng UE strength will be 5/5 without increasing pain complaints to assist in tolerance of lifting and carrying -PARTIALLY MET 4+/5 grossly. Minutes Tracking: Time In: 944 Time Out: 1030 Minutes: 45 Timed Code Treatment Minutes: 43 Minutes Jan Olmstead PT, DPT, OCS, Cert. DN Date: 10/20/2023 documented in this encounter [facility] 09-22-2023 History of Presen t illness Narrative Physical Therapy Called to say she would be a few minutes late for her appt 09/22/23 @ 1:15. . Called PT back at ten minutes late and asked where she was. Said she was still clear across [facility]. We let her know we would not be able to see her due to our late policy. She said OH MY GOD! THAT'S RIDICULOUS. THIS IS NOT OK! Told her sorry but she was over ten minutes late and we would see her at her next appt. documented in this encounter [facility] 08-26-2023 History of Presen t illness Narrative [facility] Outpatient Physical Therapy Daily Note Patient: Karma Whitehead : 1980 CSN #: [id number] Referring Physician: Shawna Mcfadden DO Date: 08/26/2023 Diagnosis: Z76.89 - Persons encountering health services in other specified circumstances Treatment Diagnosis: pain in cervical and LB Onset Date: 02/18/23 PT Insurance Information: [facility] Total # of Visits Approved: 24 Per [...] the cervical area and her LB area.-met Custodial Goals Time Frame for Financial Data Analyst Goals : 6 visits Financial Data Analyst Goal 1: Pt will be independent and compliant with exercise while maintaining improved posture 50% of the time. Custodial Goal 2: Pt will be able to perform full cervical ROM without increase complaints of baseline pain with initiation to demonstrate imporved control of pain. Custodial Goal 3: Pt will report 40% improvement in overall complaints and improved tolerance to her job tasks. Minutes Tracking: Time In: 1430 Time Out: 1500 Minutes: 30 Timed Code Treatment Minutes: 29 Minutes Kofi Villegas PT, DPT Date: 08/26/2023 documented in this encounter [facility] 08-21-2023 History of Presen t illness Narrative Physical Therapy Disregard the no show note on 08/17. This was added in error. [facility] Outpatient Physical Therapy Daily Note Patient: Karma Whitehead : 1980 CSN #: [id number] Referring Physician: Shawna Mcfadden DO Date: 08/21/2023 Treatment Diagnosis: pain in cervical and LB Onset Date: 02/18/23 PT Insurance Information: [employer] Total # of Visits Approved: 24 Per Physician Order Total # of Visits to Date: 18 No Show: 0 Canceled Appointment: 0 08/28/23 Plan of Care/Recert Due Pre-Treatment Pain: 06/09 Subjective: Patient reports 4/10 neck pain coming [...] pt required further clarification. Post Treatment Pain: 4/10 Plan Plan Frequency: up to 4 visits, [...] the cervical area and her LB area. Financial Data Analyst Goals Time Frame for Custodial Goals : 6 visits Custodial Goal 1: Pt will be independent and compliant with exercise while maintaining improved posture 50% of the time. Financial Data Analyst Goal 2: Pt will be able to perform full cervical ROM without increase complaints of baseline pain with initiation to demonstrate imporved control of pain. Custodial Goal 3: Pt will report 40% improvement in overall complaints and improved tolerance to her job tasks. Custodial Goal 4: Pt kvng UE strength will be 5/5 without increasing pain complaints to assist in tolerance of lifting and carrying. Minutes Tracking: Time In: 1045 Time Out: 1116 Minutes: 31 Timed Code Treatment Minutes: 29 Minutes Jan Olmstead PT, DPT Date: 08/21/2023 documented in this encounter [facility] 08-11-2023 History of Presen t illness Narrative [facility] Outpatient Physical Therapy Daily Note Patient: Karma Whitehead : 1980 CSN #: [id number] Referring Physician: Shawna Mcfadden DO Date: 08/11/2023 Diagnosis: Z76.89 - Persons encountering health services in other specified circumstances Treatment Diagnosis: pain in cervical and LB Onset Date: 02/18/23 PT Insurance Information: [facility] Total # of Visits Approved: 24 Per [...] the cervical area and her LB area. Custodial Goals Time Frame for Financial Data Analyst Goals : 6 visits Custodial Goal 1: Pt will be independent and compliant with exercise while maintaining improved posture 50% of the time. Custodial Goal 2: Pt will be able to perform full cervical ROM without increase complaints of baseline pain with initiation to demonstrate imporved control of pain. Financial Data Analyst Goal 3: Pt will report 40% improvement in overall complaints and improved tolerance to her job tasks. Custodial Goal 4: Pt kvng UE strength will be 5/5 without increasing pain complaints to assist in tolerance of lifting and carrying. Minutes Tracking: Time In: 1330 Time Out: 1400 Minutes: 30 Timed Code Treatment Minutes: 28 Minutes Jan Olmstead PT, DPT Date: 08/11/2023 documented in this encounter [facility] 07-14-2023 History of Presen t illness Narrative Physical Therapy [facility] Inpatient/Observation/Outpatient Rehabilitation Date: 07/14/2023 Patient Name: [...] does not require skilled services due to: Therapist/Television Cameraman will attempt to see this patient, at our earliest opportunity. Filomena Raphael Date: 07/14/2023 documented in this encounter [facility] 06-02-2023 History of Presen t illness Narrative [...] I had the pleasure of meeting Karma Stokes Bassam today. She is a very pleasant 42 [...] or lymphadenopathy. I reviewed notes from her umbrella tipper machine dated 05/05/2023, imaging including mammogram and ultrasound dated 03/16/2023 and 03/25/2023, history form dated 06/02/2023. Past Medical History Past Medical History: Diagnosis Date Anxiety Asthma Back pain Bipolar 1 disorder ([facility] Breast disorder enlarged lymph nodes in both breast Carpal tunnel syndrome Chronic pain disorder Deep vein thrombosis ([facility]) blood clot in left arm Dental disease [...] night 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 ([facility]) 11/10/2017 Visual impairment Past Surgical History Past Surgical History: Procedure Laterality Date ANKLE SURGERY Left x2 ARTHROSCOPY SHOULDER WITH ROTATOR CUFF REPAIR Right 05/15/2022 Performed by Chepe Ingram MD at [facility] DEBRIDEMENT Right 05/15/2022 Performed by Chepe Ingram MD at [facility] DECOMPRESSION OF SUBACROMIAL SPACE WITH PARTIAL ACROMIOPLASTY Right 05/15/2022 Performed by Chepe Ingram MD at [facility] INJECTION BLOCK EPIDURAL STEROID LUMBAR/SACRAL: L 4/5 WU N/A 04/22/2021 Performed by Pete Silver MD at [facility] INJECTION BLOCK SACROILIAC JOINT Left 03/27/2023 Performed by Pete Silver MD at [facility] CERVICAL OR THORACIC EPIDURAL BLOCK WITH STEROIDS: C67 WU N/A 01/29/2018 Performed by Pete Silver MD at [facility] INJECTION LUMBAR OR SACRAL EPIDURAL BLOCK WITH STEROIDS: L45 WU N/A 10/15/2018 Performed by Pete Silver MD at [facility] INJECTION MEDIAL BRANCH NERVE BLOCK: bilat L45 51 Bilateral 07/30/2018 Performed by Pete Silver MD at [facility] INJECTION SPINE TRANSFORAMINAL: left C 5,6 Nroot Left 01/09/2023 Performed by Pete Silver MD at [facility] LAPAROSCOPIC CHOLECYSTECTOMY N/A 09/16/2016 Performed by Juan Ramon Jean MD at [facility] LIVER BIOPSY EMA PROCEDURE Right 05/15/2022 Performed by Chepe Ingram MD at [facility] NASAL SURGERY REPAIR HERNIA UMBILICAL 09/16/2016 Performed by Juan Ramon Jean MD at [facility] TONSILLECTOMY Family History Family History Problem Relation [...] 5 blood-glucose meter (TRUE METRIX GLUCOSE METER) [facility] [place] [place], use to test BLOOD SUGAR TWICE DAILY, [...] , Rfl: lancets (UNILET LANCET) 28 gauge [facility] [place] [place], Use to test BLOOD SUGAR TWICE DAILY, [...] on 04/28/2023), Disp: 30 tablet, Rfl: 0 ifedhkar-dfwe-BM-calcium &mins (THERAGRAN-M) 9 mg iron-400 mcg tablet, [...] a bilateral screening mammogram on 03/16/2023 through [facility]. Her breast tissue is almost entirely fatty. There was a 1 cm mass in the posterior upper-outer right breast 17 cm from the nipple. They thought this was likely a lymph node but recommended that she return for additional imaging. She had the imaging done in [place]. They did a right diagnostic mammogram and [...] with any concerns. documented in this encounter [facility] 05-12-2023 Miscellaneous Notes Spoke with patient and scheduled with Dr. Robledo 4/2. Patient voiced understanding of appointment details. Patient was offered sooner dates but declined per her availability. documented in this encounter [facility] 05-12-2023 Telephone encounter Note Spoke with patient and scheduled with Dr. Robledo 4/2. Patient voiced understanding of appointment details. Patient was offered sooner dates but declined per her availability. [facility] 04-30-2023 Miscellaneous Notes Last Office Visit: 04/28/2023 Next Office Visit: Visit date not found Last Urine Drug Screen: No results found for: BENZOSCRN OARRS appropriate documented in this encounter [facility] 04-30-2023 Telephone encounter Note Last Office Visit: 04/28/2023 Next Office Visit: Visit date not found Last Urine Drug Screen: No results found for: BENZOSCRN OARRS appropriate [facility] 04-28-2023 History of Presen t illness Narrative [facility] [address] [place] [address] Patient: Karma Banegas Sex: female : 1980 [...] (09/2022 last visit for 11/05/22) at [facility] with no relief Back: 10/15/18 L4/5 [...] Anxiety Asthma Back pain Bipolar 1 disorder ([facility]) Breast disorder enlarged lymph nodes in both breast Carpal tunnel syndrome Chronic pain disorder Deep vein thrombosis ([facility]) blood clot in left arm Dental disease [...] night 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 ([facility]) 11/10/2017 Visual impairment Past Surgical History: Procedure Laterality Date ANKLE SURGERY Left x2 ARTHROSCOPY SHOULDER WITH ROTATOR CUFF REPAIR Right 05/15/2022 Performed by Chepe Ingram MD at [facility] DEBRIDEMENT Right 05/15/2022 Performed by Chepe Ingram MD at [facility] DECOMPRESSION OF SUBACROMIAL SPACE WITH PARTIAL ACROMIOPLASTY Right 05/15/2022 Performed by Chepe Ingram MD at [facility] INJECTION BLOCK EPIDURAL STEROID LUMBAR/SACRAL: L 4/5 WU N/A 04/22/2021 Performed by Pete Silver MD at [facility] INJECTION BLOCK SACROILIAC JOINT Left 03/27/2023 Performed by Pete Silver MD at [facility] CERVICAL OR THORACIC EPIDURAL BLOCK WITH STEROIDS: C67 WU N/A 01/29/2018 Performed by Pete Silver MD at [facility] LUMBAR OR SACRAL EPIDURAL BLOCK WITH STEROIDS: L45 WU N/A 10/15/2018 Performed by Pete Silver MD at [facility] MEDIAL BRANCH NERVE BLOCK: bilat L45 51 Bilateral 07/30/2018 Performed by Pete Silver MD at [facility] SPINE TRANSFORAMINAL: left C 5,6 Nroot Left 01/09/2023 Performed by Pete Silver MD at [facility] LAPAROSCOPIC CHOLECYSTECTOMY N/A 09/16/2016 Performed by Juan Ramon Jean MD at [facility] LIVER BIOPSY EMA PROCEDURE Right 05/15/2022 Performed by Chepe Ingram MD at [facility] NASAL SURGERY REPAIR HERNIA UMBILICAL 09/16/2016 Performed by Juan Ramon Jean MD at [facility] TONSILLECTOMY Allergies Allergen Reactions Metformin Severe [...] [place] 04/30/23 1141 documented in this encounter [facility] 04-28-2023 Instructions Peg Conrad CNA - [...] nearest emergency room. documented in this encounter [facility] 04-20-2023 Hospital Discharg e instructions Precious Urbina APRN - CNP - 04/20/2023 1:50 PM EST Increase fluid Tylenol Motrin for cough Continue home medications The following attachments cannot be sent through Care Everywhere.Head Injury: Closed: General Info (Algerian)Cervical Strain (Algerian)documented in this encounter [facility] 03-31-2023 Miscellaneous Notes Patient calls [...] medications prescribed to someone other than her. Partner Alliance Manager reiterated this to patient. Patient's pharmacy was confirmed with her. Order pended for review and signature. [id number] Telephone encounter Note Patient calls today [...] are prescribed to someone other than her. [employer] 03-31-2023 Telephone encounter Note Is she still taking prozac? What dosage? Any other antidepressants? [employer] 03-31-2023 Telephone encounter Note Call placed to patient to confirm whether or not she is taking Prozac or other antidepressants. Patient states she is taking 40 mg Prozac daily. That is the only antidepressant that she takes. She is prescribed Latuda and Lamictal to treat Bipolar. [employer] 03-31-2023 Telephone encounter Note Can try cymbalta 30mg once daily [employer] 03-31-2023 Telephone encounter Note Call placed to patient to inform her of provider's response. Patient is also educated not to take medications that are prescribed to someone other than her. Patient voices that she is aware that she should not be taking medications prescribed to someone other than her. Partner Alliance Manager reiterated this to patient. Patient's pharmacy was confirmed with her. Order pended for review and signature. [employer] 03-05-2023 Evaluation note Encounter Date Diagnosis Assessment [...] was counseling done by myself, Rhina ROBERTSON. [facility] Other 01-01-2024 Hospital Discharge instructions* Discharge Instructions* Sil Sullivan DO - 03/02/2023 7:49 PM EST Please follow-up with your GI doctor, trial enema at home, return to the ER for worsening abdominalpain, inability to pass gas, or nausea, vomiting * Attachments The following attachments cannot be sent through Care Everywhere. * Constipation (Algerian) documented in [facility] encounterB[facility] Miscellaneous Notes* Telephone Encounter - Argenis Storm [...] when she was under his care in [place]. She is currently taking Meloxicam that helps [...] She states whatever . [facility]* Telephone Encounter [...] when she was under his care in [place]. She is currently taking Meloxicam that helps [...] add Dr. Silver on the note. [facility] [employer]12-22-2023 Telephone encounter Note* Telephone Encounter - Pete Silver MD - 02/20/2023 10:04 AM EST Discussed with nurse, I agree with Fartun's treatment plan going forward. [employer]12-22-2023 Telephone encounter Note* Telephone Encounter - UMESH Hodge - 02/20/2023 10:04 AM EST No Rx for tramadol. I have never written prescription for bra so I would not know how to proceed with anything like that. [employer]12-22-2023 Telephone encounter Note* Telephone Encounter - Argenis Storm RN - 02/20/2023 10:04 AM EST Patient aware of response. She states whatever . [facility] [employer]12-20-2023 Evaluation note* Encounter Date Diagnosis Assessment Notes Treatment Notes Treatment Clinical Notes Jan, Constipation, unspecified constipation type (ICD-10 - K59.00) 20 Dec, 2023 Constipation (ICD-10 - K59.00) [facility] Other 12-12-2023 Miscellaneous Notes* Telephone Encounter - [...] and has f/u appt documented in this encounterThe [facility] encounter Note* Telephone Encounter [...] pain is now related to sacroiliac joint. [facility]12[facility] Telephone encounter Note* Telephone Encounter [...] sufficient reason to deny the current request. [facility]12[facility] Telephone encounter Note* Telephone Encounter - Alfredito William - 02/10/2023 8:18 AM EST GOT APPROVAL [facility] [employer]12-12-2023 Telephone encounter Note* Telephone Encounter - Maty Fulton RN - 02/10/2023 8:18 AM EST Pt is scheduled 03/27 for procedure and has f/u appt [facility] [employer] [id number] Evaluation note* Encounter Date Diagnosis Assessment Notes [...] R10.9) Jan, Rectal bleed (ICD-10 - K62.5) [facility] Other 11-16-2023 Evaluation note* Encounter Date Diagnosis [...] was counseling done by myself, Rhina ROBERTSON. [facility] Other 11-08-2023 Evaluation note* Encounter Date Diagnosis [...] HAVE PATIENT START DOCUSATE 3 CAPSULES DAILY. [facility] Other 06-29-2023 Evaluation note* Encounter Date Diagnosis Assessment Notes Treatment Notes Treatment Clinical Notes Jul, Obesity (ICD-10 - E66.9) Jul, BMI 34.0-34.9,adult (ICD-10 - Z68.34) Jul, Other Summary of Visi t: (A) discussed continuing to work on small goals until stress decreases and she has the energy to increase goals (B) discussed healhtier choices at [employer]- food blog reviewed (C) reviewed food storage tips for keeping produce fresh longer Patient set the following goals: - NEW: continue to choose sugar free beverages- not reviewed [facility] Other 05-30-2023 Evaluation note* Encounter Date Diagnosis [...] was counseling done by myself, Rhina ROBERTSON. [facility] Other 03-21-2023 Evaluation note* Encounter Date Diagnosis [...] was counseling done by myself, Rhina ROBERTSON. [facility] Other 02-07-2023 Evaluation note* Encounter Date Diagnosis [...] set the following goals: not reviewed today [facility] Other 02-07-2023 Evaluation note* Encounter Date Diagnosis [...] was counseling done by myself, Rhina ROBERTSON. [facility] Other 12-28-2022 Evaluation note* Encounter Date Diagnosis [...] patient set personal goal using given handout. [facility] Other 12-27-2022 Evaluation note* Encounter Date Diagnosis [...] was counseling done by myself, Rhina ROBERTSON. [facility] Other 12-01-2022 NotePROCEDURE: XR ANKLE LT MIN [...] Electronically authenticated by: ONEL CLARK Date: 2022-01-29 22:30[facility]12-01-2022 NotePROCEDURE: XR ANKLE LT MIN 3 V, [...] Electronically authenticated by: ONEL CLARK Date: 2022-01-29 22:30[facility]11-15-2022 Evaluation note* Encounter Date Diagnosis Assessment Notes [...] was counseling done by myself, Rhina ROBERTSON. [facility] Other 10-05-2022 Evaluation note* Encounter Date Diagnosis [...] was counseling done by myself, Rhina ROBERTSON. [facility] Other 08-30-2022 Evaluation note* Encounter Date Diagnosis Assessment Notes Treatment Notes Treatment Clinical Notes Sep, Fatty liver (ICD-10 - K76.0) ENCOURAGED WEIGHT LOSS Sep, Obesity (BMI 30-39.9) (ICD-10 - E66.9) [facility] Other 08-23-2022 Hospital Discharge instructions* Discharge Instructions* Stanley Almonte PA-C - 10/22/2021 2:03 PM EDT Follow-up with primary care doctor 7 to 10 days for reevaluation. Take Motrin 800 mg as directed with food. Start eardrops left ear as directed. Promptly return to emergency department for new, changing or worsening of symptoms or other concerns. [facility] [employer] Work Phone: evaluation + Plan note No data available for this section [facility] HospitalEval[facility]* Diagnosis Pilonidal cyst- Primary Pilonidal cyst without mention of abscess documented in this encounter [facility] [employer] Work Phone: evaluation note* Diagnosis Acute diffuse otitis externa of left ear- Primary documented in this encounter [facility] [employer] Work Phone: evaluation noteNo InformationNort Vennli Other Evaluation note* Diagnosis Constipation, unspecified constipation type- Primary documented in this encounter [facility]Sharetivitybeebe healthcare noteNo assessment information available [facility] Work Phone: Evaluation note* Diagnosis Closed head injury, initial encounter- Primary Fall due to slipping on ice or snow, initial encounter Acute cervical myofascial strain, initial encounter documented in this encounter [facility] healthcare note* Diagnosis Lumbosacral spondylosis without myelopathy- Primary documented [facility] encounter [facility]* Diagnosis Mass of upper outer quadrant of right breast- Primary Abnormal mammogram Abnormal mammogram, unspecified Symptomatic mammary hypertrophy documented in this encounter [facility]* Diagnosis Onset Date Resolution Status ADHD acute BMI 36.0-36.9,adult acute Constipation acute Diabetes mellitus with hyperglycemia acute Fatty liver acute IBS (irritable bowel syndrome) acute Obesity acute Shifting sleep-work schedule, affecting sleep acute Constipation acute Elevated liver function tests acute Fatty liver acute IBS (irritable bowel syndrome) acute [facility] Work Phone: Hisundl general Narrative - Reported* Type Description Date Medical History PTSD Medical History DIVERTICULITOUS Surgical History 2 BACK INJECTIONS 2014 Surgical History LEFT ANKLE 2001 Surgical History CHOLECYSTECTOMY Hospitalization History SEE ABOVE [facility] Other [facility] Narrative - Reported* Type Description Date Medical History PTSD Medical History DIVERTICULITOUS Medical History bipolar Medical History ADHD Surgical History 2 BACK INJECTIONS 2014 Surgical History LEFT ANKLE 2001 Surgical History CHOLECYSTECTOMY Surgical History nasal surgery Hospitalization History SEE ABOVE [facility] Other Hiss[facility] general Narrative - Reported* Type Description Date Medical History PTSD Medical History DIVERTICULITOUS Medical History bipolar Medical History ADHD Surgical History 2 BACK INJECTIONS 2014 Surgical History LEFT ANKLE 2001 Surgical History CHOLECYSTECTOMY Surgical History nasal surgery Surgical History right Rotator surgery 05-15-22 Hospitalization History SEE ABOVE [facility] Other [facility] general Narrative - Reported* Type Description Date Medical History PTSD Medical History DIVERTICULITOUS Medical History bipolar Medical History ADHD Medical History rotator cuff tear Surgical History 2 BACK INJECTIONS 2014 Surgical History LEFT ANKLE 2001 Surgical History CHOLECYSTECTOMY Surgical History nasal surgery Surgical History right Rotator surgery 05-15-22 Hospitalization History SEE ABOVE [facility] Other Hisbzhi general Narrative - Reported* Type Description Date Medical History PTSD Medical History DIVERTICULITOUS Medical History bipolar Medical History ADHD Medical History rotator cuff tear Surgical History 2 BACK INJECTIONS 2014 Surgical History LEFT ANKLE 2001 Surgical History CHOLECYSTECTOMY Surgical History nasal surgery Surgical History right Rotator surgery 05-15-22 Surgical History Neck injections/root burnt 12/31 Hospitalization History SEE ABOVE [facility] Other Hiscysg general Narrative - Reported* Type Description Date Medical History PTSD Medical History DIVERTICULITOUS Medical History bipolar Medical History ADHD Medical History rotator cuff tear Surgical History 2 BACK INJECTIONS 2014 Surgical History LEFT ANKLE 2001 Surgical History CHOLECYSTECTOMY Surgical History nasal surgery Surgical History right Rotator surgery 05-15-22 Surgical History Neck injections/root burnt 12/31 Hospitalization History SEE ABOVE Hospitalization History [facility]- onstipation 03-02-2023 [facility] Other Hospital Discharge instructions* Attachments The following attachments cannot be sent through Care Everywhere. * Pilonidal Abscess (Algerian) documented in this encounterBON [employer] [facility] Work Phone: Hospital Discharge instructions No data available for this section [facility] HospitalInstructionsNot on filedocumented in this encounter [facility]Not on filedocumented in this encounter [facility] SystemInstructionsNot on filedocumented in this encounter [facility] SystemInstructionsNot on filedocumented in this encounter [facility] SystemInstructionsNot on filedocumented in this encounter [facility] HospitalProgress note No data available for this section [facility] HospitalRef[facility] Narrative* Consultation (Routine) - Pending Review Specialty Diagnoses / Procedures Referred By Karla cuadra Referred To Contact Breast Surgery Diagnoses Abnormal mammogram Carmen Fisher MD [address] [place] [id number] Ila Trevizo MD [address] [place] [id number] Referral ID Status Reason Start Date Expiration Date V isits Requested Visits Authorized [id number] Pending Review 05/06/2023 05/05/2024 1 1 [employer] Summary Purpose Family History No Family History [...] L45 51 Gaurav Sellers, PA [address] [place] [address] Referral ID Status Reason Start Date Expiration Date V isits Requested Visits Authorized [id number] Pending Review 04/28/2023 04/27/2024 1 1 Chief [...] section and content) DATE CREATED AUTHOR 08/26/2017 [facility] DATE CREATED AUTHOR AUTHOR'S ORGANIZ ATION 05/30/2022 [facility] [place] [facility] DATE CREATED AUTHOR AUTHOR'S ORGANIZ ATION 01/18/[address] [facility] DATE CREATED AUTHOR AUTHOR'S ORGANIZ ATION 06/04/2023 [facility] DATE CREATED AUTHOR AUTHOR'S ORGANIZ ATION 08/03/2023 [facility] DATE CREATED AUTHOR AUTHOR'S ORGANIZ ATION 10/07/2023 [facility] DATE CREATED AUTHOR AUTHOR'S ORGANIZ ATION 10/10/2023 [facility] DATE CREATED AUTHOR AUTHOR'S ORGANIZ ATION 11/24/2023 [facility] DATE CREATED AUTHOR AUTHOR'S ORGANIZ ATION 11/30/2023 [facility] DATE CREATED AUTHOR AUTHOR'S ORGANIZ ATION 12/02/2023 [facility] Reason for Visit (unrecogniz ed [...] Dispensed Refills Start Date End Da te kcjefsoc-tkvgzepjx-szjfns ortisone (CORTISPORIN) 3.5-90886-[address] 4 drops into the [...] 0145 (Given - Provid er: Leroy Roca, RN) ondansetron (ZOFRAN-ODT) disintegrating tablet 4 mg (COMPLETED) 4 mg, Oral, ONCE, 1 dose, On 10/12/21 at 0130 0133 (Given - Provid er: Leroy Roca, RN) Scheduled Medication Order 04/18/2023 04/19/2023 04/20/2023 [...] Care Teams (unrecognized sec tion and content) [employer] Developer Relationship Specialty Start Date End Date Shawna Mcfadden DO [address] [place] [address] PCP - General Family Medicine 10/12/21 [employer] Relationship Specialty Start Date End Date Shawna Mcfadden DO [address] [place] [address] PCP - General Family Medicine 10/12/21 [employer] Relationship Specialty Start Date End Date Shawna Mcfadden DO [address] [place] [address] PCP - General Family Medicine 10/12/21 [employer] Relationship Specialty Start Date End Date Shawna Mcfadden DO [address] [place] [address] PCP - General Family Medicine 05/02/22 [employer] Relationship Specialty Start Date End Date Shawna Mcfadden DO [address] [place] [address] PCP - General Family Medicine 10/12/21 [employer] Relationship Specialty Start Date End Date Shawna Mcfadden DO [address] [place] [address] PCP - General Family Medicine 05/02/22 Team [...] Care Provider Active Start: March 18, 2023 [employer] Relationship Specialty Start Date End Date Shawna Mcfadden DO [address] [place] [address] PCP - General Family Medicine 05/02/22 [employer] Relationship Specialty Start Date End Date Shawna Mcfadden DO [address] [place] [address] PCP - General Family Medicine 10/12/21 [employer] Relationship Specialty Start Date End Date Shawna Mcfadden DO [address] [place] [address] PCP - General Family Medicine 05/02/22 [employer] Relationship Specialty Start Date End Date Shawna Mcfadden DO [address] [place] [address] PCP - General Family Medicine 10/12/21 [employer] Relationship Specialty Start Date End Date Shawna Mcfadden DO [address] [place] [address] PCP - General Family Medicine 05/02/22 [employer] Relationship Specialty Start Date End Date Shawna Mcfadden DO [address] [place] [address] PCP - General Family Medicine 05/02/22 Team Status: Active Member Role Status Dates Rory Driver , [employer]- Primary Care Provider Active Team Status: Inactive Member Role Status Dates Gayathri Adams , [employer] Attending Provider Active Start: May 21, 2023 End: May 21, 2023 Rory Driver , [facility] Primary Care Provider Active Start: May 21, 2023 End: May 21, 2023 Team Status: Inactive Member Role Status Dates Jan Garg APRN Attending Provider Active Start: May 21, 2023 End: May 21, 2023 Rory Driver , [facility] Primary Care Provider Active Start: May 21, 2023 End: May 21, 2023 [employer] Relationship Specialty Start Date End Date Shawna Mcfadden DO [address] [place] [address] PCP - [facility] 10/12/21 [employer] Relationship Specialty Start Date End Date Shawna Mcfadden DO [address] [place] [address] PCP - [facility] 10/12/21 [employer] Relationship Specialty Start Date End Date Loreto Mcneal APRN - TEASELER [address] [place] [address] PCP - General 11/11/23 Goals (unrecognized section and content) Goals may [...] BE BASED ON THE PRIMARY CLINICAL RECORDS. [facility]. provides no warranty or guarantee of the accuracy or completeness of information in this document.
--- NOTE | 2023-12-04 08:51 | MR_ITS ---
[address] [address] Patient Name: PEE WHITEHEAD MRN: [employer]:[id number] date: 1980 Sex: F Assigned Patient Location: MRI Current Patient Location: MRI Accession/Order Number: [id number] Exam Date: 12/04/2023 09:00 Report Date: 12/04/2023 15:18 At the request of: DEBRA DALE Procedure: MR lumbar spine wo con EXAMINATION: MR lumbar spine wo con HISTORY: Lumbar Stenosis With Neuroclaudication ; chronic lumbar pain and radiculopathy; bilateral leg pain and numbness, right greater than left. COMPARISON: No relevant comparison available. TECHNIQUE: A variety of imaging planes and parameters were utilized for visualization of suspected pathology. FINDINGS: For the purposes of numbering, sagittal T2 image # 8 extends from the T11 vertebral body superiorly to the S4 level inferiorly. PARASPINAL AREA: Normal with no visible mass. BONES: Multiple hemangiomas. No fracture, spondylolisthesis, or suspicious bone lesion. CORD/CAUDA EQUINA: Normal caliber, contour, and signal intensity. DISC LEVELS: 12-L1: No significant disc/facet abnormality, spinal stenosis, or foraminal stenosis. L1-L2: No significant disc/facet abnormality, spinal stenosis, or foraminal stenosis. L2-L3: No significant disc/facet abnormality, spinal stenosis, or foraminal stenosis. L3-L4: Mild foramen narrowing bilaterally without significant central canal narrowing. Mild diffuse disc bulging and mild facet arthropathy. No significant disc height reduction. L4-L5: Moderate right, mild left foramen narrowing. No significant central canal narrowing. Mild diffuse disc bulging and small posterior annular tear. No significant disc height reduction. Moderate right, mild left degenerative facet arthropathy. L5-S1: Mild foramen narrowing bilaterally without significant central canal narrowing. 6 mm posterior central disc protrusion without appreciable central canal narrowing or neural impingement. No disc height reduction. Mild degenerative facet arthropathy. MR/MR lumbar spine wo con IMPRESSION: 1. Mild degenerative disc disease L3-4 through L5-S1. L4-5 posterior annular tear. L5-S1 posterior disc protrusion. 2. Moderate right foramen narrowing at L4-5. Additional levels demonstrate mild foramen narrowing. No significant central canal stenosis. 3. Multiple lesions favoring hemangiomas within the lumbar spine and right iliac wing. Electronically authenticated by: ONEL CLARK Date: 12/04/2023 15:18
== END 2023-12-04 08:39 | disposition home or self-care (01) ==
LOC: MRI 08:39
PROVIDERS: PCP Nurse Practitioner Family; Visit Provider Anesthesiology
DX: M48.062 Spinal stenosis, lumbar region with neurogenic claudication (principal); M51.369 Other intervertebral disc degeneration, lumbar region without mention of lumbar back pain or lower extremity pain
CPT/HCPCS: 72148

== ENCOUNTER 2023-12-22 07:28 | Outpatient (RCR) | payer OTHER, SELFPAY ==
--- OUTSIDE RECORDS SUMMARY | 2023-12-22 07:32 | XMS_ITS | CCD ---
Author Organization [facility] Care Team Providers Care Hand Riveter Name Role Phone Juan Ramon Jean Unavailable [...] Care Provider MD Yo Blank Attending Provider [phone] DO Shawna Mcfadden Primary Care Provider SHAWNA [...] Primary Care Unavailable ErynEanMyrtle Attending Unavailable SERVICES, [facility] Primary Care Unava ilable SHAMMO, RORY Referring [...] able RUMSCHLAG, SHAWNA K Referring Unavailable SERVICES, [facility] Primary Care Unava ilable Fredis WELDER MACHINE OPERATOR - CREATIVE SERVICES WRITER, Loreto Primary Care [facility] ider Bk DALE, Ugo Stoddard Attending Unavailable LULY ENGLISH Attending Unavailable GABY JUNE Attending Unavailable ALICIA PRESTON Attending Unavailable LAIAL LIEBERMAN Attending Unavailable AMENA GARNER Attending Unavailable RUMSCHLAG, SHAWNA Primary Care Unavailable RUMSCHLAG, SHAWNA Referring Unavailable RUMSCHLAG, SHAWNA Primary Care Unavailable RUMSCHLAG, SHAWNA Referring Unavailable RUMSCHLAG, SHAWNA Primary Care Unavailable RUMSCHLAG, SHWANA Referring Unavailable RUMSCHLAG, SHAWNA Primary Care Unavailable RUMSCHLAG, SHAWNA Referring Unavailable RUMSCHLAG, SHAWNA Primary Care Unavailable RUMSCHLAG, SHAWNA Referring Unavailable RUMSCHLAG, SHAWNA Primary Care Unavailable NAVEEN [...] (antibiotic) (2 sources) Cephalexin Drug Allergy 7 Hives [facility] Serotonin Reuptake Inhibitors (SSRIs) (2 sources) Citalopram Drug Allergy 7 [facility] (20 sources) cephalexin; Translations: [Keflex] Drug Allergy 3 [facility] Repository (4 sources) citalopram; Translations: [CeleXA] Drug Allergy 3 AOF, heart palpitation [facility] Repository (20 sources) Cephalexin; Translations: [CEPHALEXIN] Drug Allergy 7 Hives [facility] Work Phone: (20 sources) Citalopram; Translations: [CITALOPRAM] Drug Allergy 7 Hives, anaphylaxis [facility] (5 sources) metFORMIN Drug Allergy Unknown [place] Other (20 sources) metFORMIN; Translations: [METFORMIN] Drug Allergy 3 Unknown, Unknown Reaction [facility] (10 sources) POISON DEVORAH EXTRACT; Translations: [POISON DEVORAH EXTRACT] Drug Allergy 3 [facility] (9 sources) Metformin And Related Propensity to adverse reactions to drug 4 [facility] (See Comments[facility] Cephalexin Drug Allergy 4 [facility] Repository (1 source) Citalopram Drug Allergy 4 [facility] Repository (1 source) metFORMIN Drug Allergy 4 [facility] Repository Medications Current Medications Medication Drug Class(es) Dates Sig (Normalized) Sig (Original) [id number] 200 actuat albuterol 0.09 mg/actuat metered dose [...] Orally Once a day Active bifidobacterium animalis [id number] unt / lactobacillus acidophilus [id number] unt oral capsule (1 source) take 1 capsule by mouth once daily probiotic (ALIGN/RISAQUAD) CAPS capsule Take 1 capsule by mouth daily ALIGN Active bifidobacterium infantis 4 mg oral capsule (13 sources) Start: 01-08-20 take 1 capsule by mouth once daily Bifidobacterium Infantis (Align) 4 mg capsule Active 4 MG PO Daily April 29, 2023 1:00am blood-glucose meter (TRUE METRIX GLUCOSE METER) [facility] ([facility] Start: 06-18-19 19 blood-glucose meter (TRUE METRIX GLUCOSE METER) [facility] [place] to test BLOOD SUGAR TWICE DAILY [...] 12:00am Start: 04-09-2021 take 1 capsule by [facility] in the morning cholecalciferol, vitamin D3, 2,000 units capsule Take 1 capsule (2,000 Units total) by mouth in the morning. 0 04/09/2021 Active take 1 capsule by [facility] every twenty-four hours Vitamin D3 [...] / neomycin 3.5 mg/ml / polymyxin b 30930 unt/ml otic solution (1 source) Aminoglycoside Antibacterial, Polymyxin-class Antibacterial, Corticosteroid Start: 10-22-2021 End: 10-29-2021 bqrjbbix-awweswmnu-pzdefvkjw isone (CORTISPORIN) 3.5-63952-[address] 4 drops into the [...] MOUTH NIGHTLY 30 tablet 0 07/16/2020 Active lkigussl-bqzs-DG-ca lcium &mins (THERAGRAN-M) 9 mg iron-400 mcg tablet (7 sources) mlzmyktz-gank-YP -c alcium &mins (THERAGRAN-M) 9 mg iron-400 [...] 30 days Jan, Active polyethylene glycol 3350 580609 mg / potassium chloride 2970 mg / sodium bicarbonate 6740 mg / sodium chloride 5860 mg / sodium sulfate 86910 mg powder for oral solution (2 sources) [...] Nausea, # 20 tab(s), Refills(s) 0, Pharmacy: [id number], 157, cm, 03/10/19 12:21:00 EST, Height/Length [...] Status: Ordered take 2 tablets by [facility] every six hours as needed tiZANidine (ZANAFLEX) 4 MG tablet Take 2 tablets by mouth every 6 hours as needed Active take 2 tablets by [facility] every twenty-four hours tiZANidine HCl 4 MG 2 tablet Orally daily Active take [facility] hours tiZANidine HCl 4 [...] Start: 02-24-2023 take 1 tablet by elan twice daily Ascorbic Acid (Vitamin C) (Vitamin [...] May 21, 2023 11:36am polyethylene glycol 3350 43230 mg powder for oral solution (7 sources) [...] significant stool or gas noted. Evidence of pxgc-ml-twjuvqxq diverticulosis of proximal sigmoid colon and descending [...] Zoë Nicole MD 10/07/23 Final result Normal [facility] Comp Metabolic Profon 2023 Albumin [Mass/Vol] 4.1 g/dL Normal 3.5-5.2 [facility] Comment on above: Performed By: #### C P, LIP, TROPI, CDP ####[facility] [place] [address] Lab Director: Domenica Velázquez MD Albumin/Glob Ratio 1.4 Normal 1.0-2.5 [facility] Comment on above: Performed By: #### C P, LIP, TROPI, CDP ####[facility] [place] [address] lab Director: Domenica Velázquez MD Alkaline Phos 85 U/L Normal 35-104 [facility] Comment on above: Performed By: #### C P, LIP, TROPI, CDP ####[facility] , [place] 5653683 Lab Director: Domenica Velázquez MD ALT [Catalytic activity/Vol] 12 U/L Normal 5-33 [facility] Comment on above: Performed By: #### C P, LIP, TROPI, CDP ####[facility] [place] , [place] 0109483 Lab Director: Domenica Velázquez MD Anion gap [Moles/Vol] 11 mmol/L Normal 9-17 [facility] Comment on above: Performed By: #### C P, LIP, TROPI, CDP ####[address] , [place] 3776083 Lab Director: Domenica Velázquez MD AST [Catalytic activity/Vol] 14 U/L Normal <32 [facility] Comment on above: Performed By: #### C P, LIP, TROPI, CDP ####[address] , [place] 4923683 Lab Director: Domenica Velázquez MD Bilirubin [Mass/Vol] 0.2 mg/dL Low 0.3-1.2 [facility] Comment on above: Performed By: #### C P, LIP, TROPI, CDP ####[address] , [place] 3487483 Lab Director: Domenica Velázquez MD BUN/CRE Ratio 30 High 9-20 [facility] Comment on above: Performed By: #### C P, LIP, TROPI, CDP ####[address] , [place] 2588083 Lab Director: Domenica Velázquez MD Calcium [Mass/Vol] 8.8 mg/dL Normal 8.6-10.4 [facility] Comment on above: Performed By: #### C P, LIP, TROPI, CDP ####[facility] [place] , [place] 8115683 lab Director: Domenica Velázquez MD Chloride [Moles/Vol] 103 mmol/L Normal 98-107 [facility] Comment on above: Performed By: #### C P, LIP, TROPI, CDP ####[facility] , [place] 0203083 lab Director: Domenica Velázquez MD CO2 [Moles/Vol] 25 mmol/L Normal 20-31 [facility] Comment on above: Performed By: #### C P, LIP, TROPI, CDP ####[facility] [place] [address] lab Director: Domenica Velázquez MD Creatinine [Mass/Vol] 0.6 mg/dL Normal 0.5-0.9 [facility] Comment on above: Performed By: #### C P, LIP, TROPI, CDP ####[address] [place] [address] lab Director: Domenica Velázquez MD GFR/1.73 sq M.predicted among non-blacks MDRD (S/P/Bld) [Vol rate/Area] mL/min/{1.73_m2} Normal >60 [facility] Comment on above: Result Comment: These [...] renal tubular secretion. Performed By: #### C P, LIP, TROPI, CDP ####[facility] [place] [address] lab Director: Domenica Velázquez MD Glucose [Mass/Vol] 92 mg/dL Normal 70-99 [facility] Comment on above: Performed By: #### C P, LIP, TROPI, CDP ####[address] , [place] 1439783 Lab Director: Domenica Velázquez MD Potassium [Moles/Vol] 3.6 mmol/L Low 3.7-5.3 [facility] Comment on above: Performed By: #### C P, LIP, TROPI, CDP ####[address] , [place] 9553583 Lab Director: Domenica Velázquez MD Protein [Mass/Vol] 7.0 g/dL Normal 6.4-8.3 [facility] Comment on above: Performed By: #### C P, LIP, TROPI, CDP ####[address] , [place] 7472883 Lab Director: Domenica Velázquez MD Sodium [Moles/Vol] 139 mmol/L Normal 135-144 [facility] Comment on above: Performed By: #### C P, LIP, TROPI, CDP ####[address] , [place] 3722983 Lab Director: Domenica Velázquez MD Urea nitrogen [Mass/Vol] 18 mg/dL Normal 6-20 [facility] Comment on above: Performed By: #### C P, LIP, TROPI, CDP ####[address] , [place] 5024783 Lab Director: Domenica Velázquez MD Lipaseon 10-07-2023 Lipase [Catalytic activity/Vol] 28 U/L Normal 13-60 [facility] Comment on above: Performed By: #### C P, LIP, TROPI, CDP ####[address] , [place] 8087483 Lab Director: Domenica Velázquez MD Troponinon 10-07-2023 Troponin, High Sens <6 Normal 0-14 [facility] Comment on above: Result Comment: High Sensitivity Troponin values cannot be compared with other Troponin methodologies. Performed By: #### C P, LIP, TROPI, CDP ####[address] , [place] [address])[phone] Director: Domenica Velázquez MD CBC with Diffon 10-06-2023 Abs. Basophil 0.03 k/uL Normal 0.00-0.20 [facility] Comment on above: Performed By: #### C P, LIP, TROPI, CDP ####[address] , [place] [address])[phone] Director: Domenica Velázquez MD Abs.Imm.Granulocyte 0.03 k/uL Normal 0.00-0.30 [facility] Comment on above: Performed By: #### C P, LIP, TROPI, CDP ####[address] , [place] [address])[phone] Director: Domenica Velázquez MD Abs.Neutrophil (Seg) 6.50 k/uL Normal 1.50-8.10 [facility] Comment on above: Performed By: #### C P, LIP, TROPI, CDP ####[address] , [place] [address])[phone] Director: Domenica Velázquez MD Basophils/100 WBC (Bld) 0 % Normal 0-2 [facility] Comment on above: Performed By: #### C P, LIP, TROPI, CDP ####[address] , [place] [address])[phone] Director: Domenica Velázquez MD Eosinophils (Bld) [#/Vol] 0.08 10*3/uL Normal 0.00-0.44 [facility] Comment on above: Performed By: #### C P, LIP, TROPI, CDP ####[address] , [facility]83[facility])[phone] Director: Domenica Velázquez MD Eosinophils/100 WBC (Bld) 1 % Normal 1-4 [facility] Comment on above: Performed By: #### C P, LIP, TROPI, CDP ####[address] , [place] 85[address]883 Lab Director: Domenica Velázquez MD Erythrocyte distribution width (RBC) [Ratio] 13.5 % Normal 11.8-14.4 [facility] Comment on above: Performed By: #### C P, LIP, TROPI, CDP ####[address] [place] [address] Lab Director: Domenica Velázquez MD Hematocrit (Bld) [Volume fraction] 40.1 % Normal 36.3-47.1 [facility] Comment on above: Performed By: #### C P, LIP, TROPI, CDP ####[address] , [facility]83[facility])[phone] Director: Domenica Velázquez MD Hemoglobin (Bld) [Mass/Vol] 13.4 g/dL Normal 11.9-15.1 [facility] Comment on above: Performed By: #### C P, LIP, TROPI, CDP ####[address] [place] [address] Lab Director: Domenica Velázquez MD Immature granulocytes/100 WBC (Bld) 0 % Normal 0 [facility] Comment on above: Performed By: #### C P, LIP, TROPI, CDP ####[address] [place] [address] Lab Director: Domenica Velázquez MD Lymphocytes (Bld) [#/Vol] 2.41 10*3/uL Normal 1.10-3.70 [facility] Comment on above: Performed By: #### C P, LIP, TROPI, CDP ####[address] [place] [address] Lab Director: Domenica Velázquez MD Lymphocytes/100 WBC (Bld) 25 % Normal 24-43 [facility] Comment on above: Performed By: #### C P, LIP, TROPI, CDP ####[address] , [place] 0551183 Lab Director: Domenica Velázquez MD MCH (RBC) [Entitic mass] 28.6 pg Normal 25.2-33.5 [facility] Comment on above: Performed By: #### C P, LIP, TROPI, CDP ####[address] , [place] 3388983 lab Director: Domenica Velázquez MD MCHC (RBC) [Mass/Vol] 33.4 g/dL Normal 28.4-34.8 [facility] Comment on above: Performed By: #### C P, LIP, TROPI, CDP ####[address] , [facility]83 lab Director: Domenica Velázquez MD MCV (RBC) [Entitic vol] 85.7 fL Normal 82.6-102.9 [facility] Comment on above: Performed By: #### C P, LIP, TROPI, CDP ####[address] , [facility]83 lab Director: Domenica Velázquez MD Monocytes (Bld) [#/Vol] 0.69 10*3/uL Normal 0.10-1.20 [facility] Comment on above: Performed By: #### C P, LIP, TROPI, CDP ####[address] , [place] 2404583 Lab Director: Domenica Velázquez MD Monocytes/100 WBC (Bld) 7 % Normal 3-12 [facility] Comment on above: Performed By: #### C P, LIP, TROPI, CDP ####[address] , [place] 0038773 Lab Director: Domenica Velázquez MD Neutrophil (Seg) 67 % High 36-65 [facility] Comment on above: Performed By: #### C P, LIP, TROPI, CDP ####[address] , [place] 1645483 Lab Director: Domenica Velázquez MD NRBC Automated 0.0 per 100 WBC Normal 0.0 [facility] Comment on above: Performed By: #### C P, LIP, TROPI, CDP ####[address] [place] [address] Lab Director: Domenica Velázquez MD Platelet mean volume (Bld) [Entitic vol] 10.5 fL Normal 8.1-13.5 [facility] Comment on above: Performed By: #### C P, LIP, TROPI, CDP ####[address] , [place] 3744983 Lab Director: Domenica Velázquez MD Platelets (Bld) [#/Vol] 292 10*3/uL Normal 138-453 [facility] Comment on above: Performed By: #### C P, LIP, TROPI, CDP ####[address] , [place] 5654783 Lab Director: Domenica Velázquez MD RBC (Bld) [#/Vol] 4.68 10*6/uL Normal 3.95-5.11 [facility] Comment on above: Performed By: #### C P, LIP, TROPI, CDP ####[address] , [place] 4496283 Lab Director: Domenica Velázquez MD WBC (Bld) [#/Vol] 9.7 10*3/uL Normal 3.5-11.3 [facility] Comment on above: Performed By: #### C P, LIP, TROPI, CDP ####[address] , [place] 0100383 Lab Director: Domenica Velázquez MD Basic Metabolic Profon 10-04 Anion gap [Moles/Vol] 10 mmol/L Normal 9-17 [facility] Comment on above: Performed By: #### C DP, BMP, TROPI, DIME #### [facility] [address] [place] [address] Tutoring Manager: Domenica Velázquez MD BUN/CRE Ratio 23 High 9-20 [facility] Comment on above: Performed By: #### C DP, BMP, TROPI, DIME #### [facility] [address] [place] [address] Tutoring Manager: Domenica Velázquez MD Calcium [Mass/Vol] 8.9 mg/dL Normal 8.6-10.4 [facility] Comment on above: Performed By: #### C DP, BMP, TROPI, DIME #### [facility] [address] [place] [address] [place] [address] Tutoring Manager: Domenica Velázquez MD Chloride [Moles/Vol] 105 mmol/L Normal 98-107 [facility] Comment on above: Performed By: #### C DP, BMP, TROPI, DIME #### [address] [place] [address] Tutoring Manager: Domenica Velázquez MD CO2 [Moles/Vol] 26 mmol/L Normal 20-31 [facility] Comment on above: Performed By: #### C DP, BMP, TROPI, DIME #### [facility] [address] [place], [place] 8263583 Tutoring Manager: Domenica Velázquez MD Creatinine [Mass/Vol] 0.6 mg/dL Normal 0.5-0.9 [facility] Comment on above: Performed By: #### C DP, BMP, TROPI, DIME #### [facility] [address] [place] [address] Tutoring Manager: Domenica Velázquez MD GFR/1.73 sq M.predicted among non-blacks MDRD (S/P/Bld) [Vol rate/Area] mL/min/{1.73_m2} Normal >60 [facility] Comment on above: Result Comment: These [...] tubular secretion. Performed By: #### C DP BMP, TROPI, DIME #### [address] [place] [address] Tutoring Manager: Domenica Velázquez MD Glucose [Mass/Vol] 96 mg/dL Normal 70-99 [facility] Comment on above: Performed By: #### C DP BMP, TROPI, DIME #### [facility] [address] [place] [address] [place] [address] Tutoring Manager: Domenica Velázquez MD Potassium [Moles/Vol] 3.8 mmol/L Normal 3.7-5.3 [facility] Comment on above: Performed By: #### C DP BMP, TROPI, DIME #### [address] [place] [address] Tutoring Manager: Domenica Velázquez MD Sodium [Moles/Vol] 141 mmol/L Normal 135-144 [facility] Comment on above: Performed By: #### C DP BMP, TROPI, DIME #### [facility] [address] [place] [address] Tutoring Manager: Domenica Velázquez MD Urea nitrogen [Mass/Vol] 14 mg/dL Normal 6-20 [facility] Comment on above: Performed By: #### C DP, BMP, TROPI, DIME #### [facility] [address] [place] [address] Tutoring Manager: Domenica Velázquez MD CBC with Diffon 10-05-2023 Abs. Basophil <0.03 Normal 0.00-0.20 [facility] Comment on above: Performed By: #### C DP, BMP, TROPI, DIME #### [address] [place], [place] [address] Tutoring Manager: Domenica Velázquez MD Abs.Imm.Granulocyte 0.03 k/uL Normal 0.00-0.30 [facility] Comment on above: Performed By: #### C DP, BMP, TROPI, DIME #### [address] [place] [address] Tutoring Manager: Domenica Velázquez MD Abs.Neutrophil (Seg) 5.10 k/uL Normal 1.50-8.10 [facility] Comment on above: Performed By: #### C DP, BMP, TROPI, DIME #### [address] [place] [address] Tutoring Manager: Domenica Velázquez MD Basophils/100 WBC (Bld) 0 % Normal 0-2 [facility] Comment on above: Performed By: #### C DP, BMP, TROPI, DIME #### [address] [place], [place] [address] Tutoring Manager: Domenica Velázquez MD Eosinophils (Bld) [#/Vol] 0.11 10*3/uL Normal 0.00-0.44 [facility] Comment on above: Performed By: #### C DP, BMP, TROPI, DIME #### [address] [place] [address] Tutoring Manager: Domenica Velázquez MD Eosinophils/100 WBC (Bld) 1 % Normal 1-4 [facility] Comment on above: Performed By: #### C DP, BMP, TROPI, DIME #### [facility] [address] [place], [place] [id number] Tutoring Manager: Domenica Velázquez MD Erythrocyte distribution width (RBC) [Ratio] 13.5 % Normal 11.8-14.4 [facility] Comment on above: Performed By: #### C DP, BMP, TROPI, DIME #### [facility] [address] [place], [place] [address] Tutoring Manager: Domenica Velázquez MD Hematocrit (Bld) [Volume fraction] 42.6 % Normal 36.3-47.1 [facility] Comment on above: Performed By: #### C DP, BMP, TROPI, DIME #### [address] [place] [id number] Tutoring Manager: Domenica Velázquez MD Hemoglobin (Bld) [Mass/Vol] 14.1 g/dL Normal 11.9-15.1 [facility] Comment on above: Performed By: #### C DP, BMP, TROPI, DIME #### [address] [place], [place] [address] Tutoring Manager: Domenica Velázquez MD Immature granulocytes/100 WBC (Bld) 0 % Normal 0 [facility] Comment on above: Performed By: #### C DP, BMP, TROPI, DIME #### [address] [place], [facility]83 Tutoring Manager: Domenica Velázquez MD Lymphocytes (Bld) [#/Vol] 2.42 10*3/uL Normal 1.10-3.70 [facility] Comment on above: Performed By: #### C DP, BMP, TROPI, DIME #### [address] [place], [place] 940[address]83 Tutoring Manager: Domenica Velázquez MD Lymphocytes/100 WBC (Bld) 30 % Normal 24-43 [facility] Comment on above: Performed By: #### C DP, BMP, TROPI, DIME #### [address] [place], [place] 6984383 Tutoring Manager: Domenica Velázquez MD MCH (RBC) [Entitic mass] 28.8 pg Normal 25.2-33.5 [facility] Comment on above: Performed By: #### C DP, BMP, TROPI, DIME #### [address] [place], [facility]83 Tutoring Manager: Domenica Velázquez MD MCHC (RBC) [Mass/Vol] 33.1 g/dL Normal 28.4-34.8 [facility] Comment on above: Performed By: #### C DP, BMP, TROPI, DIME #### [address] [place], [facility]83 Tutoring Manager: Domenica Velázquez MD MCV (RBC) [Entitic vol] 87.1 fL Normal 82.6-102.9 [facility] Comment on above: Performed By: #### C DP, BMP, TROPI, DIME #### [address] [place], [facility]83 Tutoring Manager: Domenica Velázquez MD Monocytes (Bld) [#/Vol] 0.53 10*3/uL Normal 0.10-1.20 [facility] Comment on above: Performed By: #### C DP, BMP, TROPI, DIME #### [address] [place], [place] 5447983 Tutoring Manager: Domenica Velázquez MD Monocytes/100 WBC (Bld) 7 % Normal 3-12 [facility] Comment on above: Performed By: #### C DP, BMP, TROPI, DIME #### [address] [place], [place] 2423983 Tutoring Manager: Domenica Velázquez MD Neutrophil (Seg) 62 % Normal 36-65 [facility] Comment on above: Performed By: #### C DP, BMP, TROPI, DIME #### [address] [place] [address] Tutoring Manager: Domenica Velázquez MD NRBC Automated 0.0 per 100 WBC Normal 0.0 [facility] Comment on above: Performed By: #### C DP, BMP, TROPI, DIME #### [address] [place], [facility]83 Tutoring Manager: Domenica Velázquez MD Platelet mean volume (Bld) [Entitic vol] 10.9 fL Normal 8.1-13.5 [facility] Comment on above: Performed By: #### C DP, BMP, TROPI, DIME #### [address] [place] [address] Tutoring Manager: Domenica Velázquez MD Platelets (Bld) [#/Vol] 296 10*3/uL Normal 138-453 [facility] Comment on above: Performed By: #### C DP, BMP, TROPI, DIME #### [address] [place], [place] [address] Tutoring Manager: Domenica Velázquez MD RBC (Bld) [#/Vol] 4.89 10*6/uL Normal 3.95-5.11 [facility] Comment on above: Performed By: #### C DP, BMP, TROPI, DIME #### [address] [place], [facility]83 Tutoring Manager: Domenica Velázquez MD WBC (Bld) [#/Vol] 8.2 10*3/uL Normal 3.5-11.3 [facility] Comment on above: Performed By: #### C DP, BMP, TROPI, DIME #### [address] [place], [facility]83 Tutoring Manager: Domenica Velázquez MD CT CHEST PULMONARY EMBOLISM [...] Fernando Marcelino MD 10/05/23 Final result Normal [facility] D-Dimer Teston 10-05-2023 D-Dimer Test 0.30 ug/mL FEU Normal 0.00-0.59 [facility] Comment on above: Result Comment: [...] patients with distal DVT. Performed By: #### C DP, BMP, KATHY CABRERA #### [facility] [address] [place] [address] [place] [address] Tutoring Manager: Domenica Velázquez MD Liver Profileon 10-05-2023 Albumin [Mass/Vol] 4.4 g/dL Normal 3.5-5.2 [facility] Comment on above: Performed By: #### L IVP #### [facility] [address] [place] [address] [place] [address] Tutoring Manager: Domenica Velázquez MD Albumin/Glob Ratio 1.4 Normal 1.0-2.5 [facility] Comment on above: Performed By: #### L IVP #### [address] [place] [address] Tutoring Manager: Domenica Velázquez MD Alkaline Phos 99 U/L Normal 35-104 [facility] Comment on above: Performed By: #### L IVP #### [facility] [address] [place] [address] Tutoring Manager: Domenica Velázquez MD ALT [Catalytic activity/Vol] 13 U/L Normal 5-33 [facility] Comment on above: Performed By: #### L IVP #### [facility] [address] [place], [place] [id number] Tutoring Manager: Domenica Velázquez MD AST [Catalytic activity/Vol] 16 U/L Normal <32 [facility] Comment on above: Performed By: #### L IVP #### [facility] [address] [place] [address] [place] [address] Tutoring Manager: Domenica Velázquez MD Bilirubin [Mass/Vol] 0.2 mg/dL Low 0.3-1.2 [facility] Comment on above: Performed By: #### L IVP #### [facility] [address] [place] [address] [place] [address] Tutoring Manager: Domenica Velázquez MD Bilirubin, Indirect Can not be calculated Normal 0.0-1 .0 [facility] Comment on above: Performed By: #### L IVP #### [address] [place] [address] Tutoring Manager: Domenica Velázquez MD Bilirubin.indirect [Mass/Vol] mg/dL Normal <0.3 [facility] Comment on above: Performed By: #### L IVP #### [facility] [address] [place] [address] [place] [address] Tutoring Manager: Domenica Velázquez MD Protein [Mass/Vol] 7.5 g/dL Normal 6.4-8.3 [facility] Comment on above: Performed By: #### L IVP #### [address] [place] [address] Tutoring Manager: Domenica Velázquez MD Troponinon 10-05-2023 Troponin, High Sens <6 Normal 0-14 [facility] Comment on above: Result Comment: High Sensitivity Troponin values cannot be compared with other Troponin methodologies. Performed By: #### T ROPI #### [facility] [address] [place], [place] [address] Tutoring Manager: Domenica Velázquez MD Troponin, High Sens <6 Normal 0-14 [facility] Comment on above: Result Comment: High Sensitivity Troponin values cannot be compared with other Troponin methodologies. Performed By: #### C DP, BMP, TROPI, DIME #### [facility] [address] [place] [address] Tutoring Manager: Domenica Velázquez MD XR CHEST PORTABLEon 10-05-19 [...] Deyanira Lock MD 10/05/23 Final result Normal [facility] CT CERVICAL SPINE WO CONTRAS Ton [...] Andi Montoya MD 04/20/23 Final result Normal [facility] CT Cervical spine WO contras ton 04-20-2023 Radiology Study observation (narrative) [facility] CT HEAD WO CONTRASTon 2023 [...] Andi Montoya MD 04/20/23 Final result Normal [facility] CT Head WO contraston 2023 Radiology Study observation (narrative) [facility] No Panel Informationon 04-[address] abnormal ity identified in the brain. No acute osseous abnormality identified in the cervical spine. [facility] RIS CONSOLIDATED EXAMINATION: CT OF THE CERVICAL [...] There is no prevertebral soft tissue swelling. [facility] RIS CONSOLIDATED Andi Montoya MD - 04/20/2023 [...] osseous abnormality identified in the cervical spine. [facility] No Panel InformationOrdered By: Andi Montoya on 04-20-2023 [facility] Work Phone: Glucose Glucometer (BldC) [M ass/Vol]on 03-27-2023 Glucose [Mass/Vol] 151 mg/dL High 65-99 [facility] Glucose Poct Glucometerson 0 03-18-2023 Commemt1 Glu2: Cleaned Meter Normal [facility] Comment on above: Result Comment: PERF ORMED BY: [place] [address] PATHOLOGIST CATTLE DEHORNER SHA VALERA M.D. Performed By: #### G LULS #### Point of Care testing , Glucose [Mass/Vol] 87 mg/dL Normal [facility] Comment on above: Result Comment: [place] Glucose Reference Range is dependent on time and content of last meal. Glucose of more than 200 mg/dL in a nonstressed, ambulatory subject supports the diagnosis of Diabetes Mellitus. Performed By: #### G LULS #### Point of Care testing , HCG,Urineon 03-18-2023 Beta HCG ( test) Ql (U) Negative Normal [facility] Comment on above: Result Comment: PERF ORMED BY: [place] [address] PATHOLOGIST CATTLE DEHORNER SHA VALERA M.D. Performed By: #### U HCG #### [address] CBC AND AUTO DIFFon 03-16-19 ABSOLUTE BASOPHIL 0.0 X10E9/L Normal 0.0-0.2 [facility] Comment on above: Performed By: #### 2 4331-1, CBCA, CMP, TSHR #### [facility] ([id number]) [address], [address] [place] [address] ABSOLUTE NEUTROPHIL 7.7 X10E9/L High 1.5-6.6 [facility] Comment on above: Performed By: #### 2 4331-1, CBCA, CMP, TSHR #### [facility] ([id number]) [address], [facility] [address] [place] [address] Basophils/100 WBC (Bld) 0.3 % Normal [facility] Comment on above: Performed By: #### 2 4331-1, CBCA, CMP, TSHR #### [facility] ([id number]) [address] [address] [place] [address] Eosinophils (Bld) [#/Vol] 0.1 10*3/uL Normal 0.0-0.4 [facility] Comment on above: Performed By: #### 2 4331-1, CBCA, CMP, TSHR #### [facility] ([id number]) [address] [place] [address] Eosinophils/100 WBC (Bld) 1.1 % Normal [facility] Comment on above: Performed By: #### 2 4331-1, CBCA, CMP, TSHR #### [facility] ([id number]) [address] [address] [place] [address] Erythrocyte distribution width (RBC) [Ratio] 14.6 % Normal 11.5-15.0 [facility] Comment on above: Performed By: #### 2 4331-1, CBCA, CMP, TSHR #### [facility] ([id number]) [address] [address] [place] [address] Hematocrit (Bld) [Volume fraction] 45.7 % Normal 35-47 [facility] Comment on above: Performed By: #### 2 4331-1, CBCA, CMP, TSHR #### [facility] ([id number]) [address] [address] [place] [address] Hemoglobin (Bld) [Mass/Vol] 15.0 g/dL Normal 11.7-15.5 [facility] Comment on above: Performed By: #### 2 4331-1, CBCA, CMP, TSHR #### [facility] ([id number]) [address] [address] [place] [address] Lymphocytes (Bld) [#/Vol] 2.4 10*3/uL Normal 1.0-3.5 [facility] Comment on above: Performed By: #### 2 4331-1, CBCA, CMP, TSHR #### [facility] ([id number]) [address] [address] [place] [address] Lymphocytes/100 WBC (Bld) 22.1 % Normal [facility] Comment on above: Performed By: #### 2 4331-1, CBCA, CMP, TSHR #### [facility] ([id number]) [address], [facility] [address] [place] [address] MCH (RBC) [Entitic mass] 29.0 pg Normal 27-34 [facility] Comment on above: Performed By: #### 2 4331-1, CBCA, CMP, TSHR #### [facility] ([id number]) [address] [address] [place] [address] MCHC (RBC) [Mass/Vol] 32.8 g/dL Normal 32-36 [facility] Comment on above: Performed By: #### 2 4331-1, CBCA, CMP, TSHR #### [facility] ([id number]) [address] [address] [place] [address] MCV (RBC) [Entitic vol] 88 fL Normal 80-100 [facility] Comment on above: Performed By: #### 2 4331-1, CBCA, CMP, TSHR #### [facility] ([id number]) [address], [address] [place] [address] Monocytes (Bld) [#/Vol] 0.6 10*3/uL Normal 0-0.9 [facility] Comment on above: Performed By: #### 2 4331-1, CBCA, CMP, TSHR #### [facility] ([id number]) [address], [facility] [address] [place] [address] Monocytes/100 WBC (Bld) 5.7 % Normal [facility] Comment on above: Performed By: #### 2 4331-1, CBCA, CMP, TSHR #### [facility] ([id number]) [address], [facility] [address] [place] [address] Neutrophils/100 WBC (Bld) 70.8 % Normal [facility] Comment on above: Performed By: #### 2 4331-1, CBCA, CMP, TSHR #### [facility] ([id number]) [address], [address] [place] [address] Platelet mean volume (Bld) [Entitic vol] 9.7 fL Normal 7-12 [facility] Comment on above: Performed By: #### 2 4331-1, CBCA, CMP, TSHR #### [facility] ([id number]) [address] [address] [place] [address] Platelets (Bld) [#/Vol] 303 10*3/uL Normal 150-450 [facility] Comment on above: Performed By: #### 2 4331-1, CBCA, CMP, TSHR #### [facility] ([id number]) [address], [address] [place] [address] RBC COUNT 5.17 X10E12/L Normal 3.80-5.20 [facility] Comment on above: Performed By: #### 2 4331-1, CBCA, CMP, TSHR #### [facility] ([id number]) [address] [address] [place] [address] WBC (Bld) [#/Vol] 10.9 10*3/uL Normal 4.0-11.0 [facility] Comment on above: Performed By: #### 2 4331-1, CBCA, CMP, TSHR #### [facility] ([id number]) [address], [address] [place] [address] COMPREHENSIVE METABOLIC PANE Dirk 03-16-2023 Albumin [Mass/Vol] 4.7 g/dL Normal 3.2-5.3 [facility] Comment on above: Performed By: #### 2 4331-1, CBCA, CMP, TSHR #### [facility] ([id number]) [address], [address] [place] [address] ALP [Catalytic activity/Vol] 74 U/L Normal 39-130 [facility] Comment on above: Performed By: #### 2 4331-1, CBCA, CMP, TSHR #### [facility] ([id number]) [address] [address] [place] [address] ALT [Catalytic activity/Vol] 22 U/L Normal 0-31 [facility] Comment on above: Performed By: #### 2 4331-1, CBCA, CMP, TSHR #### [facility] ([id number]) [address], [facility] [address] [place] [address] Anion gap [Moles/Vol] 12 mmol/L Normal 5-15 [facility] Comment on above: Performed By: #### 2 4331-1, CBCA, CMP, TSHR #### [facility] ([id number]) [address], [address] [place] [address] AST [Catalytic activity/Vol] 20 U/L Normal 0-41 [facility] Comment on above: Performed By: #### 2 4331-1, CBCA, CMP, TSHR #### [facility] ([id number]) [address] [address] [place] [address] Bilirubin [Mass/Vol] 0.5 mg/dL Normal 0.3-1.2 [facility] Comment on above: Performed By: #### 2 4331-1, CBCA, CMP, TSHR #### [facility] ([id number]) [address] [address] [place] [address] Calcium [Mass/Vol] 9.9 mg/dL Normal 8.5-10.5 [facility] Comment on above: Performed By: #### 2 4331-1, CBCA, CMP, TSHR #### [facility] ([id number]) [address] [address] [place] [address] Chloride [Moles/Vol] 105 mmol/L Normal 98-109 [facility] Comment on above: Performed By: #### 2 4331-1, CBCA, CMP, TSHR #### [facility] ([id number]) [address] [address] [place] [address] CO2 [Moles/Vol] 25 mmol/L Normal 22-32 [facility] Comment on above: Performed By: #### 2 4331-1, CBCA, CMP, TSHR #### [facility] ([id number]) [address] [address] [place] [address] Creatinine [Mass/Vol] 0.74 mg/dL Normal 0.40-1.00 [facility] Comment on above: Result Comment: METH OD TRACEABLE TO IDMS STANDARD Performed By: #### 2 4331-1, CBCA, CMP, TSHR #### [facility] ([id number]) [address] [address] [place] [address] eGFR (CKD-EPI) NON-RACE DEPENDENT >90 Normal >59 [facility] Comment on above: Result Comment: Reported eGFR is based on the CKD-EPI 2020 equation that does not use a race coefficient. Performed By: #### 2 4331-1, CBCA, CMP, TSHR #### [facility] ([id number]) [address] [address] [place] [address] Glucose [Mass/Vol] 143 mg/dL High 65-99 [facility] Comment on above: Performed By: #### 2 4331-1, CBCA, CMP, TSHR #### [facility] ([id number]) [address] [address] [place] [address] Potassium [Moles/Vol] 3.8 mmol/L Normal 3.5-5.0 [facility] Comment on above: Performed By: #### 2 4331-1, CBCA, CMP, TSHR #### [facility] ([id number]) [address] [address] [place] [address] Protein [Mass/Vol] 7.8 g/dL Normal 6.0-8.0 [facility] Comment on above: Performed By: #### 2 4331-1, CBCA, CMP, TSHR #### [facility] ([id number]) [address] [address] [place] [address] Sodium [Moles/Vol] 142 mmol/L Normal 134-146 [facility] Comment on above: Performed By: #### 2 4331-1, CBCA, CMP, TSHR #### [facility] ([id number]) [address] [address] [place] [address] Urea nitrogen [Mass/Vol] 17 mg/dL Normal 5-23 [facility] Comment on above: Performed By: #### 2 4331-1, CBCA, CMP, TSHR #### [facility] ([id number]) [address] [address] [place] [address] HGB A1C (GLYCO-HGB)on 2023 Glucose [Mass/Vol] 117 mg/dL Normal [facility] Comment on above: Performed By: #### 2 4331-1, CBCA, CMP, TSHR #### [facility] ([id number]) [address], [facility] [address] [place] [address] HbA1c (Bld) [Mass fraction] 5.7 % High 4.4-5.6 [facility] Comment on above: Result Comment: NOTE ADA Guidelines Result HgbA1c Normal : less than 5.7 % Prediabetes : 5.7 % to 6.4 % Diabetes : > 6.4 % Use with caution in patients with abnormal hemoglobin variants as the half-life of red blood cells and in vivo glycation rates are affected. Performed By: #### 2 4331-1, CBCA, CMP, TSHR #### [facility] ([id number]) [address], [facility] [address] [place] [address] Lipid 1996 panelon Cholesterol [Mass/Vol] 132 mg/dL Low 150-200 [facility] Comment on above: Performed By: #### 2 4331-1, CBCA, CMP, TSHR #### [facility] ([id number]) [address] [address] [place] [address] Cholesterol in HDL [Mass/Vol] 58 mg/dL Normal >39 [facility] Comment on above: Result Comment: HDL <40 mg/dL - High Risk HDL > or = 40mg/dL- Desirable HDL >60 mg/dL - Negative Risk Performed By: #### 2 4331-1, CBCA, CMP, TSHR #### [facility] ([id number]) [address], [address] [place] [address] Cholesterol in LDL [Mass/Vol] 51 mg/dL Normal <130 [facility] Comment on above: Result Comment: LDL <100 mg/dL - Desirable LDL >160 mg/dL - High Risk Performed By: #### 2 4331-1, CBCA, CMP, TSHR #### [facility] ([id number]) [address], [address] [address] Cholesterol in VLDL [Mass/Vol] 23 mg/dL Normal 0-30 [facility] Comment on above: Performed By: #### 2 4331-1, CBCA, CMP, TSHR #### [facility] ([id number]) [address], [address] [place] [address] CHOLESTEROL:HDL 2.3 Normal 1.0-5.0 [facility] Comment on above: Performed By: #### 2 4331-1, CBCA, CMP, TSHR #### [facility] ([id number]) [address], [address] [place] [address] Triglyceride [Mass/Vol] 114 mg/dL Normal 27-150 [facility] Comment on above: Performed By: #### 2 4331-1, CBCA, CMP, TSHR #### [facility] ([id number]) [address], [facility] [address] [place] [address] MAMM SCREENING BILATERAL W C bingo attendant 03-16-2023 MAMM SCREENING BILATERAL W CAD MAMM [...] 3:25 PM 0A a ADDITIONAL I Normal [facility] TSH WITH REFLEXon 03-16-2023 TSH 0.55 uIU/mL Normal 0.49-4.67 [facility] Comment on above: Performed By: #### 2 4331-1, CBCA, CMP, TSHR #### [facility] ([id number]) [address] [facility], [address] [place] [address] PT - Assessmentson 3 PT - Assessments [id number]#1.00CD:12 7 Normal [facility] ST - Assessmentson 3 ST - Assessments [id number]#1.00CD:127 Normal [facility] Consenton 09-25-2022 Consent [id number]#1.00CD:127 Normal [facility] Outside Recordson 2022 Outside Records [id number]#1.00CD:127 Normal [facility] ST - Orderson 2022 ST - Orders [id number]#1.00CD:127 Normal [facility] ST - Orders [id number]#1.00CD:127 Normal [facility] ST - Otheron 2022 ST - Other [id number]#1.00CD:127 Normal [facility] PAP ACOG PANEL 2: 30 to 65on 05-27-[address] [facility] Comment on above: Result Comment: Perf ormed at: WB Performed By: #### 4 [id number] #### [facility] [address] [address] [address] Do Aguilar Age Gdln ACOG Testing [facility] Comment on above: Performed By: #### 4 [id number] #### [facility] [address] [place] [address] Dr. Do Aguilar DIAGNOSIS: Comment [facility] Comment on above: Result Comment: NEGA TIVE FOR INTRAEPITHELIAL LESION OR MALIGNANCY. Performed at: WB Performed By: #### 4 [id number] #### [facility] [address] [address] [address] Do Aguilar HPV Aptima Negative Normal [facility] Comment on above: Result Comment: This nucleic acid amplification test detects fourteen high-risk HPV types (16,18,31,33,35,39,45,51,52,56,58,59,66,68) without differentiation. Performed at: =G Performed By: #### 4 [id number] #### [facility] [address] [address] [address] Do Aguilar HPV Genotype Reflex Comment Normal [facility] Comment on above: Result Comment: Crit eria not met, HPV Genotype not performed. Performed at: WB Performed By: #### 4 [id number] #### [facility] [address] [place] [address] Dr. Do Aguilar Methodology: Comment Normal [facility] Comment on above: Result Comment: This liquid based ThinPrep(R) pap test was screened with the use of an image guided system. Performed at: WB Performed By: #### 4 [id number] #### [facility] [address] [place] [address] Dr. Do Aguilar Note: Comment Normal [facility] Comment on above: Result Comment: The Pap smear is a screening test designed to aid in the detection of premalignant and malignant conditions of the uterine cervix. It is not a diagnostic procedure and should not be used as the sole means of detecting cervical cancer. Both false-positive and false-negative reports do occur. . Performed at: WB Performed By: #### 4 [id number] #### [facility] [address] [place] [address] Dr. Do Aguilar Performed by: Comment Normal [facility] Comment on above: Result Comment: Melissa Ramachandran, Strategic Development Manager (ASCP) Performed at: WB Performed By: #### 4 [id number] #### [facility] [address] [place] [address] Dr. Do Aguilar Specimen adequacy: Comment Normal [facility] Comment on above: Result Comment: Sati sfactory for evaluation. Endocervical and/or squamous metaplastic cells (endocervical component) are present. Performed at: WB Performed By: #### 4 [id number] #### [facility] [address] [place] [address] Dr. Do Aguilar HEPATITIS C AB CASCADE TO QU ANT PCR GENOon 02-18-2022 HCV AB <0.1 Normal 0.0-0.9 [facility] Comment on above: Performed By: #### H EPCASC #### [facility] [address] [place] [address] Dr. Do Aguilar Interpretation: Comment Normal [facility] Comment on above: Result Comment: Nega tive Not infected with HCV, unless recent infection is suspected or other evidence exists to indicate HCV infection. Performed By: #### H EPCASC #### [facility] [address] [place] [address] Dr. Do Aguilar LIVER PROFILEon 02-17-2022 Albumin [Mass/Vol] 3.6 g/dL Normal 3.4-5.0 [facility] Comment on above: Performed By: #### L JESSIKA #### [facility] [address] [address] [address] Do Aguilar Albumin/Globulin [Mass ratio] 0.9 {ratio} Normal [facility] Comment on above: Performed By: #### L IVER #### [facility] [address] [address] [address] Do Aguilar ALP [Catalytic activity/Vol] 79 U/L Normal 46-116 [facility] Comment on above: Performed By: #### L IVER #### [facility] [address] [address] [address] Do Aguilar ALT [Catalytic activity/Vol] 51 U/L Normal 14-59 [facility] Comment on above: Performed By: #### L IVER #### [facility] [address] [place] [address] Dr. Do Aguilar AST [Catalytic activity/Vol] 33 U/L Normal 15-37 [facility] Comment on above: Performed By: #### L IVER #### [facility] [address] [place] [address] Dr. Do Aguilar BILI, CONJUGATED 0.1 mg/dL Normal 0.0-0.2 [facility] Comment on above: Performed By: #### L IVER #### [facility] [address] [place] [address] Dr. oD Aguilar Bilirubin [Mass/Vol] 0.3 mg/dL Normal 0.2-1.0 [facility] Comment on above: Performed By: #### L IVER #### [facility] [address] [place] [address] Dr. Do Aguilar Globulin (S) [Mass/Vol] 4.2 g/dL Normal [facility] Comment on above: Performed By: #### L IVER #### [facility] [address] [place] [address] Dr. Do Aguilar Protein [Mass/Vol] 7.8 g/dL Normal 6.4-8.2 [facility] Comment on above: Performed By: #### L IVER #### [facility] [address] [address] [address] Do Aguilar TSHon 02-17-2022 TSH 0.457 uIU/mL Normal 0.358-3.[address] [facility] Comment on above: Performed By: #### T SH #### [facility] [address] [place], [place] [address] Dr. Do Aguilar VITAMIN B12on 02-17-2022 Cobalamin (Vitamin B12) [Mass/Vol] 1864.0 pg/mL Critically high 193.0-986. 0 [facility] Comment on above: Performed By: #### V ITB12 #### [facility] [address] [address] [address] Do Aguilar History and Physicalon 12-04 History and Physical [id number]#[facility].00[facility] - Surgeon/P godwin 12-04-2016 Operative Report - Surgeon/Physician [id number]#1.00[facility] Coding Summaryon 11-26-2016 Coding Summary CODING DATE: 017 [facility] STATUS: Home PAYOR: Medicaid HMO ADMIT DX: REASON FOR VISIT DX: R10.13 Epigastric pain R10.11 Right upper quadrant pain FINAL DX: PRINCIPAL: K29.70 Gastritis, unspecified, without bleeding SECONDARY: PROCEDURES DOCTOR NAME DATE [id number] EsophagogastroduodenTed mena Richard MD 11/21/2016 flexible, transoral; with biopsy, single or multiple NOTE: The code number assigned matches the documented diagnosis and / or procedure in the patient's chart. However, the narrative phrase printed from the coding software may appear abbreviated, or result in slightly different terminology. Coded By: Rosalba Laureano Date Saved: 11/26/2016 01:09 pm [facility] Consent Formson 11-24-2016 Consent Forms [id number]#1.00[facility] 2016 Intraoperative Note [id number]#1.00OTGTIFF [facility] Intraoperative Note [id number]#1.00OTGTIFF [facility] Operative Report - Surgeon/P godwin 11-24-2016 Operative Report - Surgeon/Physician DATE OF PROCEDURE: 11/21/2016PREOPERATIVE DIAGNOSIS: Epigastric pain/right upper quadrant pain.POSTOPERATIVE DIAGNOSIS: Moderate gastritis.PROCEDURE PERFORMED: EGD with biopsy x1 from the antrum of the stomach forH. pylori testing.SURGEON: Juan Ramon Jean M.D.ANESTHESIA: Conscious sedation with Versed 6 mg IV, Demerol 50 mg IV.FINDINGS: As above.DISPOSITION: [facility] in fair condition.INDICATIONS: The patient is [...] in two weeks.Juan Ramon Jean M.D.JOB #: [id number]: 11/21/2016T: 11/21/2016[Electronically Signed on: 12/03/2016 07:09 EDT] Juan Ramon Jean MD Generated Domain User for [id number][Verified on: 12/03/2016 07:09 EDT] Juan Ramon Jean MD[Transcribed on: 11/21/2016 11:37 EDT]GDU [facility] Telemetry Stripson 7 Telemetry Strips [id number]#1.00OTGTIFF [facility] Telemetry Strips [id number]#1.00OTGTIFF [facility] H. Pylori Gastricon 11-22-19 17 H. Pylori Rico Int Ctrl Pass [facility] Comment on above: Order Comment: H. (A NTRUM) Result Comment: Pass Performed By: #### 2 [id number] ####[facility] (DEFAULT)[address] [place] [address] H. Pylori Gastric Negative Normal Negative [facility] Comment on above: Order Comment: H. (A NTRUM) Result Comment: Nega tive Performed By: #### 2 [id number] ####[facility] (DEFAULT)[address] [place] [address] Inpatient Clinical Summaryon 11-21-2016 Inpatient Clinical Summary [facility] SURGERYClinical Discharge SummaryPERSON INFORMATIONName ROSE KARMA BANEGAS Age 36 Years [birth year]/Sex FEMALE Language Nicaraguan PCP DEFRANCE, DAVIDMarital Status [facility] Service Ambulatory SurgeryN [id number] Acct# Arrival 11/21/16 07:22:21Visit Reason EGD - EPIGASTRIC ABDOMINAL PAIN Acuity LOS 013 23:19Address:[address] [facility] [id number]:PROVIDER INFORMATIONVITALS INFORMATIONVital Sign Triage LatestTemp OralTemp Temporal 36.4 DegC 36.4 DegCTemp IntravascularTemp AxillaryTemp [id number] Sat 100 % 97 %Respiratory Rate 16 [...] INFORMATIONInstructions:Fo llow up:With: Address: When:Juan Ramon Jean [address] [place] [id number] Business (1) Within 2 to 4 weeksComments:Call for follow up appointmentWith: Address: When:DOMENICA OLIVA [address] [place], [place] [phone] Business (0)DIAGNOSISAcute gastritisComment:PHYS DOC NOTES Normal [facility] Inpatient Patient Summaryon 11-21-2016 [place] [address] patient Discharge InstructionsName: KARMA SRDOB: [birth year] Address: [address] [place] [address] Care Provider:Name: ODMENICA OLIVAPhone: Discharge Diagnosis: Acute gastritisIf you received [...] or business decisions or sign any legal documentsSelect Medical Trihealth Rehabilitation Hospital would like to thank you for allowing us to assist you with your healthcare needs. The following includes patient education materials and information regarding your injury/illness.KARMA SR has been given the following list of follow-up instructions, prescriptions, and patient education materials:Follow-up InstructionsWith: Address: When:Juan Ramon Jean [address] [place] [id number] Business (1) Within 2 to 4 weeksComments:Call for follow up appointmentWith: Address: When:DOMENICA [place] [address] [facility] (1)MedicationsDuring the course of your visit, [...] for Disease Control and Prevention October [address] [facility]21[facility]2016 [facility] Intra-Op Record Summary Primary Physician: Juan Ramon Jean MD Finalized Date/Time: 11/21/16 08:37:38 Pt. Name: KARMA SR/Sex: 1980 FEMALE Med Rec #: [id number] Physician: Juan Ramon Jean MD Financial #: [id number] Pt. Type: D Room/Bed: / Admit/Disch: 11/21/16 [...] Jane RN Role Performed Surgeon - Primary Teacher Cclc Teacher Cclc Time In 11/21/16 08:06:00 11/21/16 08:06:00 11/21/16 [...] 11/21/16 08:37 MHDBARONE Modify Pick List Normal [facility] Endo Postoperative Benjamin rdon 11-21-2016 [facility] Endo Postoperative Record [facility] Endo Phase II Record Summary Primary Physician: Juan Ramon Jean MD Finalized Date/Time: 11/21/16 10:02:07 Pt. Name: KARMA SR /Sex: 1980 FEMALE Med Rec #: [id number] Physician: Juan Ramon Jean MD Financial #: [id number] Pt. Type: D Room/Bed: / Admit/Disch: 11/21/16 07:22:21 - Institution: Phase II Case Times EN [facility] Pre-Care Text: Patient is free from s/s [...] Signed By: Cammy Barroso RN 11/21/16 10:02 [facility] MAGR Endo Preoperative Recor don 11-21-2016 [facility] Endo Preoperative Record [facility] End[facility] Pre-Op Record Summary Primary Physician: Juan Ramon Jean MD Finalized Date/Time: 11/21/16 08:27:58 Pt. Name: ROSE BANEGASKARMAO.B./Sex: 1980 FEMALE Med Rec #: [id number] Physician: Juan Ramon Jean MD Financial #: [id number] Pt. Type: D Room/Bed: / Admit/Disch: 11/21/16 07:22:21 - Institution: Pre-Op Case Times EN [facility] Pre-Care Text: Patient will be optimally prepared [...] Signed By: Cammy Barroso RN 11/21/16 08:27 [facility] Test Urine 1on U Preg Negative [facility] Comment on above: Result Comment: Nega tive Performed By: #### [id number] ####[facility] (DEFAULT)[address] [place] [address] U Preg Internal Control Pass Normal [facility] Comment on above: Result Comment: Pass Performed By: #### [id number] ####[facility] (DEFAULT)[address] [place] [address] Vital Signs Date Time Vital Sign Value Performing Clinician Facility 06-02-2023 14:32-0400 Body mass index (BMI) [Ratio] 36.67 kg/m2 Deepika Robledo MD Work Phone: [facility] 06-02-2023 14:32-0400 Body weight 93.89 kg Deepika Robledo MD Work Phone: [facility] 06-02-2023 14:32-0400 Diastolic blood pressure 102 mm[Hg] Deepika Robledo MD Work Phone: [facility] 06-02-2023 14:32-0400 Heart rate 83 /min Deepika Robledo MD Work Phone: [facility] 06-02-2023 14:32-0400 Systolic blood pressure 136 mm[Hg] Deepika Robledo MD Work Phone: [facility] 05-21-2023 11:22-0400 Body height 160.02 cm [facility] 05-21-2023 11:22-0400 Body mass index (BMI) [Ratio] 36.5 kg/m2 [facility] 05-21-2023 11:22-0400 Body weight 93.44 kg [facility] 05-21-2023 10:39-0400 Body height 160.02 cm [facility] 05-21-2023 10:39-0400 Body mass index (BMI) [Ratio] 36.5 kg/m2 [facility] 05-21-2023 10:39-0400 Body weight 93.49 kg [facility] 05-21-2023 10:39-0400 Diastolic blood pressure 77 mm[Hg] [facility] 05-21-2023 10:39-0400 Heart rate 105 /min [facility] 05-21-2023 10:39-0400 Respiratory rate 18 /min [facility] 05-21-2023 10:39-0400 SaO2% (BldA) [Mass fraction] 95 % [facility] 05-21-2023 10:39-0400 Systolic blood pressure 114 mm[Hg] [facility] 04-28-2023 11:21-0500 Body height 160 cm Gaurav Sellers PA Work Phone: [facility] 04-28-2023 11:21-0500 Body mass index (BMI) [Ratio] 36.14 kg/m2 Gaurav Sellers PA Work Phone: [facility] [employer] [facility] 04-28-2023 11:21-0500 Body weight 92.53 kg Gaurav Sellers PA Work Phone: [facility] 04-28-2023 11:21-0500 Diastolic blood pressure 82 mm[Hg] Gaurav Nitenzin PA Work Phone: [facility] [employer] [facility] 04-28-2023 11:21-0500 Heart rate 87 /min Gaurav Nienberg PA Work Phone: [facility] 04-28-2023 11:21-0500 Respiratory rate 16 /min Gaurav Nienberg PA Work Phone: [facility] 04-28-2023 11:21-0500 SaO2% (BldA) [Mass fraction] 97 % Gaurav Mercerenberg PA Work Phone: [facility] [employer] [facility] 04-28-2023 11:21-0500 Systolic blood pressure 122 mm[Hg] Gaurav Sellers PA Work Phone: [facility] 04-20-2023 12:41-0500 Body mass index (BMI) [Ratio] 36.49 kg/m2 Shawna Luis Enrique DO Work Phone: [facility] 04-20-2023 12:41-0500 Body weight 93.44 kg Shawna Rumschlag DO [facility] Phone[facility] 04-20-2023 12:41-0500 Diastolic blood pressure 76 mm[Hg] Shawna Rumschlag DO Work Phone[facility] 04-20-2023 12:41-0500 Heart rate 83 /min Shawna Rumschlag DO Work Phone[facility] 04-20-2023 12:41-0500 Respiratory rate 16 /min Shawna Rumschlag DO [facility] 04-20-2023 12:41-0500 SaO2% (BldA) [Mass fraction] 98 % Shawna Rumschlag DO Work Phone: [facility] 04-20-2023 12:41-0500 Systolic blood pressure 129 mm[Hg] Shawna Rumschlag DO Work Phone: [facility] 04-20-2023 12:39-0500 Body temperature 97.3 [degF] Shawna Rumschlag DO [facility] 03-18-2023 11:30-0500 Diastolic blood pressure 84 mm[Hg] MD Yo Blank Work Phone: [facility] 03-18-2023 11:30-0500 Heart rate 95 /min MD Yo Blank Work Phone: [facility] 03-18-2023 11:30-0500 Respiratory rate 16 /min MD Yo Blank Work Phone: [facility] 03-18-2023 11:30-0500 SaO2% (BldA) [Mass fraction] 99 % MD Yo Blank Work Phone: [facility] 03-18-2023 11:30-0500 Systolic blood pressure 123 mm[Hg] MD Yo Blank Work Phone: [facility] 03-05-2023 09:15-0500 Body height 160.02 cm Gayathri Scally Other [place] Other 03-05-2023 09:15-0500 Body mass index (BMI) [Ratio] 37.57 kg/m2 Gayathri Scally Other [place] Other 03-05-2023 09:15-0500 Body weight 96.21 kg Gayathri Scally Other [place] Other 03-05-2023 09:15-0500 Diastolic blood pressure 89 mm[Hg] Gayathri Scally Other [place] Other 03-05-2023 09:15-0500 Respiratory rate 18 /min Gayathri Scally Other [place] Other 03-05-2023 09:15-0500 SaO2% (BldA) [Mass fraction] 96 % Gayathri Scally Other [place] Other 03-05-2023 09:15-0500 Systolic blood pressure 122 mm[Hg] Gayathri Scally Other [place] [facility] 03-02-2023 19:24-0500 Body height 160 cm Sil Sullivan DO Work Phone: [facility] [place] 03-02-2023 19:24-0500 Body mass index (BMI) [Ratio] 36.31 kg/m2 Sil Sullivan DO Work Phone: [facility] 03-02-2023 19:24-0500 Body temperature 98.29 [degF] Sil Sullivan DO Work Phone: [facility] 03-02-2023 19:24-0500 Body weight 92.99 kg Sil Sullivan DO Work Phone: [facility] 03-02-2023 19:24-0500 Diastolic blood pressure 98 mm[Hg] Sil Sullivan DO Work Phone: [facility] 03-02-2023 19:24-0500 Heart rate 82 /min Sil Sullivan DO Work Phone: [facility] 03-02-2023 19:24-0500 Respiratory rate 18 /min Sil Sullivan DO Work Phone: [facility] 03-02-2023 19:24-0500 SaO2% (BldA) [Mass fraction] 98 % Sil Sullivan DO Work Phone: [facility] 03-02-2023 19:24-0500 Systolic blood pressure 139 mm[Hg] Sil Sullivan DO Work Phone: [facility] 02-05-2023 09:20-0500 Body height 160.02 cm Jan Garg Other [place] Other 02-05-2023 09:20-0500 Body mass index (BMI) [Ratio] 36.66 kg/m2 Jan Garg Other [place] Other 02-05-2023 09:20-0500 Body weight 93.9 kg Jan Garg Other [place] Other 01-15-2023 09:45-0500 Body height 160.02 cm Gayathri Adams Other [place] Other 01-15-2023 09:45-0500 Body mass index (BMI) [Ratio] 36.68 kg/m2 Gayathrimarino Barahonaly Other [place] Other 01-15-2023 09:45-0500 Body weight 93.94 kg Gayathri Scally Other [place] Other 01-15-2023 09:45-0500 Diastolic blood pressure 83 mm[Hg] Gayathri Scally Other [place] Other 01-15-2023 09:45-0500 Respiratory rate 18 /min Gayathri Scally Other [place] Other 01-15-2023 09:45-0500 SaO2% (BldA) [Mass fraction] 99 % Gayathri Scally Other [place] [facility] 01-15-2023 09:45-0500 Systolic blood pressure 119 mm[Hg] Gayathri Scally Other [place] [facility] 01-07-2023 10:00-0500 Body height 160.02 cm Jan Garg Other [place] Other 01-07-2023 10:00-0500 Body mass index (BMI) [Ratio] 36.13 kg/m2 Jan Garg Other [place] [facility] 01-07-2023 10:00-0500 Body weight 92.53 kg Jan Garg Other [place] [facility] 01-07-2023 10:00-0500 Diastolic blood pressure 74 mm[Hg] Jan Garg Other [place] [facility] 01-07-2023 10:00-0500 Systolic blood pressure 118 mm[Hg] Jan Scovanner Other [place] Other 08-28-2022 09:00-0400 Body height 160.02 cm Tamar Fitt Other [place] Other 08-28-2022 09:00-0400 Body mass index (BMI) [Ratio] 35.8 kg/m2 Tamar Fitt Other [place] Other 08-28-2022 09:00-0400 Body weight 91.67 kg Tamar Fitt Other [place] Other 07-29-2022 10:15-0400 Body height 160.02 cm Gayathri Scally Other [place] Other 07-29-2022 10:15-0400 Body mass index (BMI) [Ratio] 35.18 kg/m2 Gayathri Scally Other [place] Other 07-29-2022 10:15-0400 Body weight 90.08 kg Gayathri Scally Other [place] Other 07-29-2022 10:15-0400 Diastolic blood pressure 84 mm[Hg] Gayathri Scally Other [place] [facility] 07-29-2022 10:15-0400 Respiratory rate 18 /min Gayathri Scally Other [place] Other 07-29-2022 10:15-0400 SaO2% (BldA) [Mass fraction] 99 % Gayathri Scally Other [place] Other 07-29-2022 10:15-0400 Systolic blood pressure 127 mm[Hg] Gayathri Scally Other [place] Other 05-20-2022 11:15-0400 Body height 160.02 cm Gayathri Scally Other [place] [facility] 05-20-2022 11:15-0400 Body mass index (BMI) [Ratio] 34.52 kg/m2 Gayathri Scally Other [place] [facility] 05-20-2022 11:15-0400 Body weight 88.41 kg Gayathri Scally Other [place] Other 05-20-2022 11:15-0400 Diastolic blood pressure 82 mm[Hg] Gayathri Scally Other [place] [facility] 05-20-2022 11:15-0400 Respiratory rate 18 /min Gayathri Scally Other [place] Other 05-20-2022 11:15-0400 SaO2% (BldA) [Mass fraction] 97 % Gayathri Scally Other [place] [facility] 05-20-2022 11:15-0400 Systolic blood pressure 121 mm[Hg] Gayathri Scally Other [place] [facility] 04-08-2022 11:15-0500 Body height 160.02 cm Gayathri Scally Other [place] [facility] 04-08-2022 11:15-0500 Body mass index (BMI) [Ratio] 34.49 kg/m2 Gayathri Scally Other [place] [facility] 04-08-2022 11:15-0500 Body weight 88.32 kg Gayathri Scally Other [place] [facility] 04-08-2022 11:15-0500 Diastolic blood pressure 77 mm[Hg] Gayathri Scally Other [place] [facility] 04-08-2022 11:15-0500 Respiratory rate 18 /min Gayathri Scally Other [place] Other 04-08-2022 11:15-0500 SaO2% (BldA) [Mass fraction] 98 % Gayathri Scally Other [place] [facility] 04-08-2022 11:15-0500 Systolic blood pressure 110 mm[Hg] Gayathri Scally Other [place] [facility] 04-08-2022 10:15-0500 Body height 160.02 cm Tamar Fitt Other [place] Other 04-08-2022 10:15-0500 Body mass index (BMI) [Ratio] 34.49 kg/m2 Tamar Fitt Other [place] Other 04-08-2022 10:15-0500 Body weight 88.32 kg Tamar Fitt Other [place] Other 02-26-2022 10:00-0500 Body height 160.02 cm Tamar Fitt Other [place] Other 02-25-2022 11:45-0500 Body height 160.02 cm Gayathri Scally Other [place] Other 02-25-2022 11:45-0500 Body mass index (BMI) [Ratio] 36.63 kg/m2 Gayathri Scally Other [place] Other 02-25-2022 11:45-0500 Body weight 93.8 kg Gayathri Scally Other [place] Other 02-25-2022 11:45-0500 Diastolic blood pressure 78 mm[Hg] Gayathri Scally Other [place] [facility] 02-25-2022 11:45-0500 Respiratory rate 18 /min Gayathri Scally Other [place] Other 02-25-2022 11:45-0500 SaO2% (BldA) [Mass fraction] 97 % Gayathri Scally Other [place] Other 02-25-2022 11:45-0500 Systolic blood pressure 109 mm[Hg] Gayathri Scally Other [place] Other 01-14-2022 11:45-0500 Body height 160.02 cm Gayathri Scally Other [place] Other 01-14-2022 11:45-0500 Body mass index (BMI) [Ratio] 39.37 kg/m2 Gayathri Scally Other [place] Other 01-14-2022 11:45-0500 Body weight 100.84 kg Gayathri Scally Other [place] Other 01-14-2022 11:45-0500 Diastolic blood pressure 88 mm[Hg] Gayathri Scally Other [place] Other 01-14-2022 11:45-0500 Respiratory rate 18 /min Gayathri Scally Other [place] Other 01-14-2022 11:45-0500 SaO2% (BldA) [Mass fraction] 97 % Gayathri Scally Other [place] Other 01-14-2022 11:45-0500 Systolic blood pressure 124 mm[Hg] Gayathri Scally Other [place] [facility] 12-04-2021 12:00-0400 Body height 160.02 cm Gayathri Scally Other [place] Other 12-04-2021 12:00-0400 Body mass index (BMI) [Ratio] 39.73 kg/m2 Gayathri Scally Other [place] Other 12-04-2021 12:00-0400 Body weight 101.74 kg Gayathri Scally Other [place] Other 12-04-2021 12:00-0400 Diastolic blood pressure 74 mm[Hg] Gayathri Scally Other [place] [facility] 12-04-2021 12:00-0400 Respiratory rate 18 /min Gayathri Scally Other [place] Other 12-04-2021 12:00-0400 SaO2% (BldA) [Mass fraction] 95 % Gayathri Scally Other [place] Other 12-04-2021 12:00-0400 Systolic blood pressure 110 mm[Hg] Gayathri Adams Other [place] Other 10-29-2021 11:30-0400 Body height 160.02 cm Yo Blank Other [place] Other 10-29-2021 11:30-0400 Body mass index (BMI) [Ratio] 38.61 kg/m2 Yo Blank Other [place] Other 10-29-2021 11:30-0400 Body weight 98.88 kg Yo Blank Other [place] Other 10-29-2021 11:30-0400 Diastolic blood pressure 74 mm[Hg] Yo Rosamaria Other [place] Other 10-29-2021 11:30-0400 Systolic blood pressure 111 mm[Hg] Yo Blank Other [place] Other 10-22-2021 13:26-0400 Body temperature 97.2 [degF] Shawna Rumschlag DO Work Phone: [facility] [place] 10-22-2021 13:26-0400 Diastolic blood pressure 71 mm[Hg] Shawna Rumschlag DO Work Phone: [facility] [place] [facility] 10-22-2021 13:26-0400 Heart rate 85 /min Shawna Rumschlag DO Work Phone: [facility] [place] [facility] 10-22-2021 13:26-0400 Respiratory rate 16 /min Shawna Rumschlag DO Work Phone: [facility] 10-22-2021 13:26-0400 SaO2% (BldA) [Mass fraction] 94 % Shawna Rumschlag DO Work Phone: [facility] [place] 10-22-2021 13:26-0400 Systolic blood pressure 131 mm[Hg] Shawn[facility]chlag DO [facility] 10-11-2021 23:48-0400 Body height 160 cm Daniel Adkins MD Work Phone: [facility] [place] 10-11-2021 23:48-0400 Body mass index (BMI) [Ratio] 36.67 kg/m2 Daniel Adkins MD Work Phone: [facility] [place] 10-11-2021 23:48-0400 Body temperature 98.6 [degF] Daniel Adkins MD [facility] 10-11-2021 23:48-0400 Body weight 93.89 kg Daniel Adkins MD Work Phone: [facility] [place] 10-11-2021 23:48-0400 Diastolic blood pressure 88 mm[Hg] Daniel Adkins MD Work Phone: [facility] [place] 10-11-2021 23:48-0400 Heart rate 97 /min Daniel Adkins MD Work Phone: [facility] [place] 10-11-2021 23:48-0400 Respiratory rate 16 /min Daniel Adkins MD [facility] 10-11-2021 23:48-0400 SaO2% (BldA) [Mass fraction] 96 % Daniel Adkins MD Work Phone: [facility] [place] 10-11-2021 23:48-0400 Systolic blood pressure 134 mm[Hg] Daniel Adkins MD Work Phone: [facility] [place] Encounters Encounter Date Encounter Type Care Provider Facility Start: 12-15-2023 End: 12-15-2023 ambulatory LORETO MCNEAL [facility] Start: 12-01-2023 End: 12-01-2023 ambulatory [facility]O [facility] Start: 11-30-2023 End: 11-30-2023 ambulatory AMENA GARNER Not Available Start: 11-17-2023 End: 11-17-2023 ambulatory [facility] Start: 11-17-2023 End: 11-17-2023 Subsequent hospital visit by physician Tamar Silveira PT [facility] Physical Therapy Comment on above: Arrived Start: 11-16-2023 End: 11-16-2023 ambulatory Ugo Bourgeois MD Facility:[facility] Start: 10-20-2023 End: 10-20-2023 ambulatory SHAWNA Browningy [facility] Start: 10-20-2023 End: 10-20-2023 Subsequent hospital visit by physician Jan Olmstead PT [facility] Physical Therapy Comment on above: Arrived Start: 10-08-2023 End: 10-08-2023 ambulatory DWAYNEDAVINA PALMER [facility] Start: 10-06-2023 End: 10-07-2023 Emergency department patient visit [facility] Start: 10-05-2023 End: 10-05-2023 Emergency department patient visit [facility] Start: 10-05-2023 End: 10-05-2023 Emergency department patient visit [facility] Start: 09-22-2023 End: 09-22-2023 Subsequent hospital visit by physician Jan Olmstead PT [facility] Physical Therapy Start: 09-15-2023 End: 09-15-2023 ambulatory SHAWNA RUMSCHLAG [facility] Start: 09-07-2023 End: 09-07-2023 ambulatory SHAWNA RUMSCHLAG [facility] Start: 09-01-2023 End: 09-01-2023 ambulatory SHAWNA RUMSCHLAG [facility] Start: 08-26-2023 End: 08-26-2023 ambulatory SHAWNA RUMSCHLAG [facility] Start: 08-26-2023 End: 08-26-2023 Subsequent hospital visit by physician Kofi Villegas PT [facility] Physical Therapy Comment on above: Arrived Start: 08-21-2023 End: 08-21-2023 ambulatory SHAWNA RUMSCHLAG [facility] Start: 08-21-2023 End: 08-21-2023 Subsequent hospital visit by physician Jan Olmstead PT [facility] Physical Therapy Comment on above: Arrived Start: 08-13-2023 End: 08-13-2023 ambulatory LAILA LIEBERMAN Not Available Start: 08-11-2023 End: 08-11-2023 ambulatory SHAWNA RUMSCHLAG [facility] Start: 08-11-2023 End: 08-11-2023 Subsequent hospital visit by physician Jan Olmstead PT [facility] Physical Therapy Comment on above: Arrived Start: 08-04-2023 End: 08-04-2023 ambulatory SHAWNA RUMSCHLAG [facility] Start: 07-29-2023 End: 07-29-2023 ambulatory SHAWNA RUMSCHLAG [facility] Start: 07-14-2023 End: 07-14-2023 Subsequent hospital visit by physician Rebecca Skinner PT [facility] Physical Therapy Start: 07-07-2023 End: 07-07-2023 ambulatory SHAWNA RUMSCHLAG [facility] Start: 06-30-2023 End: 06-30-2023 ambulatory SHAWNA RUMSCHLAG [facility] Start: 06-17-2023 End: 06-17-2023 ambulatory SHAWNA RUMSCHLAG [facility] Start: 06-16-2023 End: 06-16-2023 ambulatory SHAWNA RUMSCHLAG [facility] Start: 06-04-2023 End: 06-04-2023 ambulatory SHAWNA RUMSCHLAG [facility] Start: 06-03-2023 End: 06-03-2023 ambulatory [facility] Start: 06-02-2023 End: 06-02-2023 Office outpatient new 30 minutes Deepika Robledo MD Work Phone: [facility] Comment on above: Mass of upper outer quadrant of right breast (Primary Dx); Abnormal mammogram; Symptomatic mammary hypertrophy Start: 06-02-2023 End: 06-02-2023 ambulatory DEEPIKA ROBLEDO [facility] Start: 06-02-2023 ambulatory SHAWNA RUMSCHLAG [facility] Start: 05-25-2023 End: 05-25-2023 ambulatory ALICIA PRESTON Not Available Start: 05-21-2023 End: 05-21-2023 Patient encounter procedure [facility] Physician [facility] Work Phone: Start: 05-21-2023 End: 05-21-2023 [facility] encounter [facility] Work Phone: Start: 05-20-2023 End: 05-20-2023 ambulatory SHAWNA RUMSCHLAG [facility] Start: 05-19-2023 End: 05-19-2023 ambulatory [facility]CHLAG [facility] [facility] Start: 05-12-2023 Telephone encounter Deepika Robledo MD Work Phone: [facility] Start: 05-06-2023 End: 05-06-2023 ambulatory SHAWNA RUMSCHLAG [facility] Start: 05-06-2023 End: 05-06-2023 Subsequent hospital visit by physician Rojas Altamirano PTA [facility] Physical Therapy Comment on above: Arrived Start: 05-05-2023 End: 05-05-2023 ambulatory SHAWNA RUMSCHLAG [facility] Start: 04-30-2023 Emery Fulton RN [facility] Start: 04-28-2023 End: 04-28-2023 ambulatory GAURAV SELLERS [facility] Start: 04-28-2023 End: 04-28-2023 Office outpatient visit 25 minutes Gaurav CALVO Work Phone: [facility] Comment on above: 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 (Primary Dx) Start: 04-21-2023 End: 04-21-2023 ambulatory SHAWNA RUMSCHLAG [facility] Start: 04-20-2023 End: 04-20-2023 Emergency department patient visit [facility] ED Comment on above: Closed head injury, initial encounter (Primary Dx); Fall due to slipping on ice or snow, initial encounter; Acute cervical myofascial strain, initial encounter Start: 04-16-2023 ambulatory Myrtle Cerna Facility: [facility] Start: 04-07-2023 End: 04-07-2023 ambulatory [facility] Start: 03-31-2023 Refill Patricia Clay RN [facility] Start: 03-27-2023 End: 03-27-2023 ambulatory PETE SILVER [facility] Start: 03-24-2023 End: 03-24-2023 ambulatory [facility] Start: 03-19-2023 End: 03-19-2023 ambulatory GABY JUNE Not Available Start: 03-18-2023 Telephone encounter Jan Peterson [facility] Start: 03-18-2023 End: 03-18-2023 ambulatory NON STAFF [facility] [employer] Other Start: 03-18-2023 Non-patient / Non-visit MD Yo Blank Work Phone: [facility] Work Phone: Start: 03-17-2023 End: 03-17-2023 ambulatory Jan Garg Other [place] [facility] Other Start: 03-17-2023 Telephone encounter Jan Peterson [facility] Start: 03-16-2023 Encounter for genera l adult medical examination without abnormal findings [facility] Start: 03-16-2023 End: 03-16-2023 ambulatory RORY DRIVER [facility] Start: 03-16-2023 End: 03-16-2023 ambulatory LULY ENGLISH Not Available Start: 03-10-2023 End: 03-10-2023 [facility] Start: 03-10-2023 End: 03-10-2023 Subsequent hospital visit by physician [facility] Comment on above: Arrived Start: 03-05-2023 (FCCCWMNF/U) Weight Management f/u Gayathri Adams [facility] Start: 03-05-2023 End: 03-05-2023 [facility] [employer] Other Start: 03-05-2023 Registered Recurring MD Monserrat Blank Work Phone: [facility] [place] Work Phone: Start: 03-02-2023 End: 03-02-2023 Emergency department patient visit Sil Sullivan DO Work Phone: [facility] ED Comment on above: Constipation, unspec ified constipation type (Primary Dx) Start: 02-26-2023 End: 02-26-2023 ambulatory Jan Garg Other [place] Other Start: 02-26-2023 Telephone encounter Jan Peterson [facility] Start: 02-20-2023 Telephone encounter Argenis Storm RN [facility] Comment on above: Medication, DME Start: 02-18-2023 End: 02-18-2023 ambulatory Jan Garg Other [place] Other Start: 02-18-2023 Telephone encounter Jan Peterson [facility] Start: 02-10-2023 Telephone encounter Margaux Olea CST [facility] Start: 02-05-2023 End: 02-05-2023 ambulatory Jan Garg Other [place] Other Start: 02-05-2023 Office outpatient visit 15 minutes Jan Garg [facility] Start: 01-15-2023 ([facility]WMNF/U) Weight Management f/u Gayathri [place] [facility] Start: 01-15-2023 End: 01-15-2023 ambulatory Gayathrimarino Barahonaly Other [place] Other Start: 01-07-2023 End: 01-07-2023 ambulatory Jan Garg Other [place] Other Start: 01-07-2023 Office outpatient visit 15 minutes Jan Garg [facility] Gastro[facility] Start: 09-25-2022 End: 01-16-2023 ambulatory LIBRARY SERIALS ASSISTANT YUE GRANADO [facility] Start: 09-25-2022 End: 01-15-2023 Recurring YUE GRANADO [facility] Start: 09-17-2022 End: 09-17-2022 ambulatory Gayathri Adams Other [place] Other Start: 09-17-2022 Telephone encounter Gayathri [place] [facility] Start: 08-28-2022 ([facility] RD FU) [facility] F/ U Registerd Spoilage Worker Tamar Sosa [facility] Start: 08-28-2022 End: 08-28-2022 ambulatory Tamar Sosa Other [place] Other Start: 07-29-2022 ([facility]WMNF/U) Weight Management f/u Gayathri Scally [facility] Start: 07-29-2022 End: 07-29-2022 ambulatory Gayathri [place]ly Other [place] Other Start: 05-20-2022 ([facility]WMNF/U) Weight Management f/u Gayathri [place] [facility] Start: 05-20-2022 End: 05-20-2022 ambulatory Gayathri [place] Other [place] Other Start: 05-19-2022 End: 05-19-[address] ALICIA PRESTON . Facility:[facility] Start: 05-07-2022 End: 05-08-[address] DOCTOR ARREOLA Facility:[facility] Start: 04-09-2022 End: 04-09-2022 ambulatory Gayathri Adams Other [place] Other Start: 04-09-2022 Telephone encounter Gayathri Adams [place] [facility] Start: 04-08-2022 ([facility] WMNI) WMN Initial Provider Tamar Sosa [facility] Start: 04-08-2022 ([facility]WMNF/U) Weight Management f/u Gayathri Angie [facility] Start: 04-08-2022 End: 04-08-2022 ambulatory Tamar Fitt Other [place] Other Start: 02-26-2022 End: 02-26-2022 ambulatory Tamar Fitt Other [place] Other Start: 02-26-2022 IBT FOR OBESITY GROU P 2-10 30M Tamar Sosa [facility] Start: 02-25-2022 ([facility]WMNF/U) Weight Management f/u Gayathri Adams [facility] Start: 02-25-2022 End: 02-25-2022 ambulatory Gayathri Adams Other [place] Other Start: 02-17-2022 End: 02-18-2022 ambulatory RORY DRIVER Facility:[facility] Start: 01-29-2022 End: 01-30-2022 ambulatory JOY ARAMBULA Facility:[facility] Start: 01-14-2022 ([facility]WMNF/U) Weight Management f/u Gayathri Adams [facility] Start: 01-14-2022 End: 01-14-2022 ambulatory Gayathri Adams Other [place] Other Start: 12-05-2021 End: 12-05-2021 ambulatory Gayathri Adams Other [place] Other Start: 12-05-2021 Telephone encounter Gayathri last [facility] Start: 12-04-2021 End: 12-04-2021 ambulatory Gayathri Adams Other [place] Other Start: 12-04-2021 Nutrition therapy Gayathri Harrington [facility] Start: 10-29-2021 End: 10-29-2021 ambulatory Yo Blank Other [place] Other Start: 10-29-2021 Patient encounter procedure Yo Blank [facility] Gastroenter[facility] Start: 10-22-2021 End: 10-22-2021 Emergency department patient visit Shawna Mcduffielucaviviane Work Phone: [facility] ED Comment on above: Acute diffuse otitis externa of left ear (Primary Dx) Start: 10-11-2021 End: 10-12-2021 Emergency department patient visit Daniel Adkins MD Work Phone: [facility] ED Comment on above: Pilonidal cyst (Prim romero Dx) Start: 11-21-2016 End: 11-26-[address] [facility] Facility:[facility] Procedures Date Procedure Procedure Detail Performing Clinician Start: 05-25-2023 Microscopic observat ion [Identifier] in Cervix by Cyto stain Deepika Robledo MD Work Phone: Start: 04-20-2023 Ct cervical spine w/ o contrast material Precious Urbina WELDER MACHINE OPERATOR - LIBRARY SERIALS ASSISTANT Work Phone: Start: 04-20-2023 Ct head/brain w/o co ntrast material Precious Urbina WELDER MACHINE OPERATOR - LIBRARY SERIALS ASSISTANT Work Phone: Start: 05-02-2022 Microalbumin [Mass/v olume] in Urine by Test strip Patricia Clay RN Start: 05-02-2020 Adult depression scr eening assessment Argenis Storm RN Start: 08-30-2016 Cholecystectomy YUE PARISH Start: 01-03-2013 nasal surgery YUE ALVARENGA RS Tonsillectomy YUE GRANADO Plan of Treatment Date Care Activity Detail Author Start: 05-24-2026 Screening for malignant neoplasm of cervix Pap Smear [facility] Start: 03-16-2025 Screening for malignant neoplasm of breast Breast cancer screen [facility] Start: 11-10-2024 End: 11-10-2024 Patient encounter procedure 11/10/2024 11:30 AM EDT Office Visit [facility] Part of [address] [place] [address] Karen Cotter, WELDER MACHINE OPERATOR - LIBRARY SERIALS ASSISTANT [address] [facility] [address] [place] [address] 1 year KUB [facility] Part [facility] Comment on above: 1 year KU Start: 06-01-2024 Adult BMI Screening Adult BMI Screen [facility] Start: 04-28-2024 Adult BMI Screening Adult BMI Screen ing [facility] Start: 04-28-2024 Tobacco Screening Tobacco Screening [facility] Start: 03-16-2024 Adult BMI Screening Adult BMI Screen ing [facility] Start: 01-30-2024 Adult BMI Screening Adult BMI Screen ing [facility] Start: 01-30-2024 Tobacco Screening Tobacco Screening [facility] Start: 12-29-2023 End: 12-29-2023 Patient encounter procedure 12/29/2023 9:00 AM EDT Appointment [facility] Physical Therapy [address] [place] [phone] Tamar Silveira, [facility] Comment on above: NEEDLING Start: 12-15-2023 End: 12-15-2023 Patient encounter procedure 12/15/2023 9:00 AM EDT Appointment [facility] Physical Therapy [address] [place] [phone] Tamar Silveira, [facility] Physical Therapy Comment on above: NEEDLING Start: 12-01-2023 End: 12-01-2023 Patient encounter procedure 12/01/2023 9:45 AM EDT Appointment [facility] Physical Therapy [address] [place], [place] [phone] Tamar Silveira, PT NEEDLING [facility] Physical Therapy Comment on above: NEEDLING Start: 11-01-2023 Influenza vaccination Influenza Vacc ine [facility] Start: 10-08-2023 End: 10-08-2023 Patient encounter procedure 10/08/2023 9:00 AM EDT Office Visit [facility] [address] [facility] [address] [place] [address] Dwayne Khoury MD [address], [address] [place] [address] [facility] Start: 10-01-2023 Influenza vaccination Flu vaccine (# 1) [facility] Start: 09-01-2023 End: 09-01-2023 Patient encounter procedure 09/01/2023 10:30 AM EDT Appointment [facility] Physical Therapy [address] [place], [place] [phone] Osito Rowan [facility] Physical Therapy Start: 08-26-2023 End: 08-26-2023 Patient encounter procedure 08/26/2023 2:30 PM EDT Appointment [facility] Physical Therapy [address] [place], [place] [phone] Kofi Villegas, PT [facility] Physical Therapy Start: 08-18-2023 End: 08-18-2023 Patient encounter procedure 08/18/2023 9:45 AM EDT Appointment [facility] Physical Therapy [address] [place] [phone] Osito Rowan [facility] Physical Therapy Start: 08-11-2023 End: 08-11-2023 Patient encounter procedure 08/11/2023 1:15 PM EDT Appointment [facility] Physical Therapy [address] [place] [address] [phone] Jan Olmstead, PT DRY NEEDLING [facility] Physical Therapy Comment on above: DRY NEEDLING Start: 08-04-2023 End: 08-04-2023 Patient encounter procedure 08/04/2023 4:15 PM EDT Appointment [facility] Physical Therapy [address] [place] [phone] Osito Rowan [facility] Physical Therapy Start: 06-03-2023 End: 06-03-2023 Patient encounter procedure 06/03/2023 3:30 PM EDT Appointment [facility] Physical Therapy [address] [place] [phone] Osito Rowan [facility] Physical Therapy Start: 06-02-2023 End: 06-02-2023 Patient encounter procedure [facility] Physical Therapy Comment on above: DRY NEEDLING- dont m ove coordinates with son's appt Start: 05-23-2023 Hepatitis B vaccine (3 of 3 - Hep B Twinrix 3-dose series) Hepatitis B vaccine (3 of 3 - Hep B Twinrix 3-dose series) [facility] Start: 05-20-2023 End: 05-20-2023 Patient encounter procedure 05/20/2023 3:15 PM EDT Appointment [facility] Physical Therapy [address] [place] [phone] Rojas Altamirano PTA [facility] Physical Therapy Start: 05-19-2023 End: 05-19-2023 Patient encounter procedure 05/19/2023 12:45 PM EDT Appointment [facility] Physical Therapy [address] [place] [phone] Rebecca Skinner PT DRY NEEDLING- dont move coordinates with son's apptDRY NEEDLING [facility] Physical Therapy Comment on above: DRY NEEDLING- dont m ove coordinates with son's apptDRY NEEDLING Start: 05-05-2023 End: 05-05-2023 Patient encounter procedure [facility] Physical Therapy Comment on above: DRY NEEDLING DRY NEEDLING- dont m ove coordinates with son's appt Start: 05-03-2023 Urine screening for protein Urine Microalbumin [facility] Start: 04-28-2023 End: 04-28-2023 Patient encounter procedure 04/28/2023 10:45 AM EST Office Visit [facility] [address] [place] [phone] Gaurav Sellers PA [address] [facility], [place] [phone] [facility] Start: 04-21-2023 End: 04-21-2023 Patient encounter procedure [facility] Physical Therapy Comment on above: DRY NEEDLING DRY NEEDLING- jd gibson coordinates with son's appt Start: 04-07-2023 End: 04-07-2023 Patient encounter procedure 04/07/2023 2:15 PM EST Appointment [facility] Physical Therapy [address] [place], [place] [phone] Rebecca Skinner PT DRY NEEDLING [facility] Physical Therapy Comment on above: DRY NEEDLING Start: 03-27-2023 End: 03-27-2023 Admission to same day surgery center 03/27/2023 1:27 PM EST - 03/27/2023 1:33 PM EST Surgery [facility] [address] [place] [phone] Pete Silver MD [address] [facility], [place] [phone] INJECTION BLOCK SACROILIAC JOINT [92434 (CPT )] [facility] Comment on above: INJECTION BLOCK SACR OILIAC JOINT [19665 (CPT )] Start: 03-27-2023 End: 03-27-2023 Inject si joint arthrgrphy&/anes/ster oid w/monika INJECTION BLOCK SACROILIAC JOINT Disorder of sacrum 03/27/2023 1:27 PM EST [facility] Start: 03-27-2023 Subsequent hospital visit by physician 03/27/2023 1:27 PM EST Hospital Encounter [facility] [address] [facility] [place] [phone] Pete Silver MD [address] [place] [address] [facility] Start: 03-24-2023 End: 03-24-2023 Patient encounter procedure 03/24/2023 2:15 PM EST Appointment [facility] Physical Therapy [address] [place] [phone] Rebecca Skinner, PT DRY NEEDLING [facility] Physical Therapy Comment on above: DRY NEEDLING Start: 03-19-2023 [facility] Start: 03-16-2023 End: 03-16-2023 Patient encounter procedure 03/16/2023 11:45 AM EST Appointment [facility] Mamm[facility] DEXA [address] [place] [address] [facility]A Start: 03-10-2023 End: 03-10-2023 Patient encounter procedure 03/10/2023 2:30 PM EST Appointment [facility] Physical Therapy [address] [place] [phone] Rebecca Skinner, PT [facility] Physical Therapy Start: 09-30-2022 Influenza vaccination Flu vaccine (# 1) [facility] Start: 10-31-2021 Influenza vaccination Flu vaccine (# 1) [facility] Start: 09-03-2021 DTaP,Tdap and Td Vaccines (1 - Tdap) DTaP,Tdap and Td Vaccines (1 - Tdap) [facility] Start: 09-03-2021 DTaP/Tdap/Td vaccine (1 - Tdap) DTaP/Tdap/Td vaccine (1 - Tdap) [facility] Start: 05-02-2021 Depression Screening Depression Scre ening [facility] Start: 2020 Lipid panel Lipids [facility] Start: 01-04-2020 Diabetic foot examination Diabetic Foot Exam [facility] Start: 09-25-2015 Diabetes screen Diabetes screen [facility] Start: 2010 Screening for malignant neoplasm of cervix [facility] Start: 2001 Screening for malignant neoplasm of cervix Pap smear [facility] Start: 09-25-1999 DTaP/Tdap/Td vaccine (1 - Tdap) DTaP/Tdap/Td vaccine (1 - Tdap) [facility] Start: 1998 Adult BMI Follow Up Plan Adult BMI Follow Up Plan [facility] Start: 1998 Hepatitis C screening Hepatitis C sc reen [facility] Start: 09-25-1995 HIV screening HIV screen [facility] Start: 1993 Varicella vaccine (1 of 2 - 13+ 2-dose series) Varicella vaccine (1 of 2 - 13+ 2-dose series) [facility] Start: 1992 Depression Screen Depression Screen [facility] Start: 1992 Depression Screening Depression Scre ening [facility] Start: 1990 Lipid panel Lipids [facility] Start: 1981 Varicella vaccine (1 of 2 - 2-dose childhood series) Varicella vaccine (1 of 2 - 2-dose childhood series) [facility] Start: 03-27-1981 COVID-19 Vaccine (#1) COVID-19 Vacci ne (#1) [facility] Start: 1980 Glaucoma screening Diabetic Op hthalmology Exam [facility] Start: 1980 Hepatitis B vaccine (1 of 3 - 3-dose series) Hepatitis B vaccine (1 of 3 - 3-dose series) [facility] Inject si joint arthrgrphy&/anes/ster oid w/monika INJECTION BLOCK SACROILIAC JOINT Disorder of sacrum [facility] Njx dx/ther agt pvrt facet jt lmbr/sac 1 level INJECTION BLOCK NERVE MEDIAL BRANCH Lumbosacral spondylosis without myelopathy [facility] Immunizations Immunization Date Immunization Notes Care Provider Saundra donnelly 12-22-2022 influenza virus vaccine, unspecified formulation Deepika Robledo MD Work Phone: [facility] 12-19-2018 influenza, injectabl e, quadrivalent, preservative free Argenis Storm RN [facility] 12-02-2017 influenza, injectabl e, quadrivalent, preservative free Argenis Storm RN [facility] 12-02-2017 pneumococcal conjuga te vaccine, 13 valent Argenis Storm RN [facility] 10-10-2016 influenza virus vaccine, unspecified formulation Argenis Storm RN [facility] 12-19-2013 influenza virus vaccine, live, attenuated, for intranasal use Argenis Storm RN [facility] 12-03-2012 influenza virus vaccine, whole virus Argenis Storm RN [facility] 12-29-2011 influenza virus vaccine, whole virus Argenis Storm RN [facility] 12-23-2010 influenza virus vaccine, whole virus Argenis Storm RN [facility] 12-18-2008 influenza virus vaccine, whole virus Argenis Storm RN [facility] Payers Date Payer Category Payer Unknown 2021 Self-pay [id number] 2002 Medicaid [employer] [employer] [id number] 2002-Present [phone] [address] [id number] [id number] 1980 Unknown [id number] 2.840.1.968371.3.579.2.593 1980 Unknown [id number] 2.16.840.1.174996.3.579.2.593 1980 Unknown [id number] 2.16.840.1.163408.3.579.2.593 1980 Unknown [id number] 2.16.840.1.924047.3.579.2.593 1980 Unknown [id number] 2.16.840.1.518324.3.579.2.727 1980 Unknown [id number] 2.16.840.1.149153.3.579.2.1286 1980 Unknown [id number] 2.16.840.1.078638.3.579.2.1285 1980 Unknown [id number] 2.16.840.1.688404.3.579.2.1285 1980 Unknown [id number] 2.16.840.1.520281.3.579.2.1285 1980 Unknown [id number] 2.16840.1.705808.3.579.2.1285 1980 Unknown [id number] 2.840.1.052821.3.579.2.1285 1980 Unknown [id number] 2.16840.1.944043.3.579.2.1285 1980 Unknown [id number] 2.840.1.671985.3.579.2.1285 1980 Unknown [id number] 2.840.1.769532.3.579.2.1285 1980 Unknown [id number] 2.840.1.825317.3.579.2.1285 1980 Unknown [id number] 2.840.1.006168.3.579.2.196 1980 Unknown [id number] 2.840.1.799676.3.579.2.1258 1980 Unknown [id number] 2.840.1.438530.3.579.2.1258 1980 Unknown [id number] 2.840.1.876850.3.579.2.1258 1980 Unknown [id number] 2.840.1.873039.3.579.2.1258 1980 Unknown [id number] 2.840.1.598928.3.579.2.1258 1980 Unknown [id number] 2.16840.1.515787.3.579.2.173 1980 Unknown [id number] 2.16840.1.648138.3.579.2. 1980 Unknown [id number] 2.16.840.1.487699.3.579.2. 1980 Unknown [id number] 2.16.840.1.304784.3.579.2. 1980 Unknown [id number] 2.16.840.1.430711.3.579.2. 1980 Unknown [id number] 2.16840.1.197812.3.579.2. 1980 Unknown [id number] 2.16.840.1.737889.3.579.2. 1980 Unknown [id number] 2.840.1.861417.3.579.2. 1980 Unknown [id number] 2.840.1.836623.3.579.2. 1980 Unknown [id number] 2.840.1.852183.3.579.2. 1980 Unknown [id number] 2.840.1.561499.3.579.2. 1980 Unknown [id number] 2.840.1.329071.3.579.2. 1980 Unknown [id number] 2.840.1.097101.3.579.2. 1980 Unknown [id number] 2.840.1.178317.3.579.2. 1980 Unknown [id number] 2.16840.1.794367.3.579.2. 1980 Unknown [id number] 2.840.1.123810.3.579.2. 1980 Unknown [id number] 2.16840.1.531939.3.579.2. 1980 Unknown [id number] 2.16840.1.214622.3.579.2. 1980 Unknown [id number] 2.16.840.1.020289.3.579.2. 1980 Unknown [id number] 2.16.840.1.187907.3.579.2. 1980 Unknown [id number] 2.16.840.1.583714.3.579.2. 1980 Unknown [id number] 2.16.840.1.604553.3.579.2. 1980 Unknown [id number] 2.16.840.1.396668.3.579.2. 1980 Unknown [id number] 2.16.840.1.368827.3.579.2. 1980 Unknown [id number] 2.16.840.1.954861.3.579.2. 1980 Unknown [id number] 2.16.840.1.157390.3.579.2. 1980 Unknown [id number] 2.16.840.1.220673.3.579.2. 1980 Unknown [id number] 2.16.840.1.418844.3.579.2. 1980 Unknown [id number] 2.16.840.1.005115.3.579.2. 1980 Unknown [id number] 2.16.840.1.666053.3.579.2. 1980 Unknown [id number] 2.16.840.1.512302.3.579.2. 1980 Unknown [id number] 2.16.840.1.897189.3.579.2.173 1959 Medicaid [id number] Unknown [id number] 2.16.840.1.844118.3.579.2.531 Unknown [id number] 2.16.840.1.941320.3.579.2.531 Unknown [id number] 2.16.840.1.911706.3.579.2.531 Social History Date Type Detail Facility Start: 09-02-2017 End: 11-11-2023 Tobacco smoking status NHIS Never smoked tobacco [facility] [place] Start: 09-02-2017 End: 11-11-2023 Tobacco use and exposure Smokeless tobacco non-user [employer] Phone: Start: 10-11-2021 End: 11-11-2023 Alcohol intake Current non-drinker of alcohol (finding) [employer] Phone: Start: 1980 Sex Assigned At Not on file [employer] Phone: Start: 10-01-2021 End: 10-22-2021 Exposure to SARS-CoV-2 (event) Not sure [employer] Phone: Start: 10-11-2021 End: 11-11-[address] [facility] Tobacco smoking status Never [facility] Start: 10-11-2021 End: 11-11-2023 History of Social function [facility] Start: 1980 Sex Assigned At Female F [facility] How often to you hav e a drink containing alcohol? Never [employer] [place] Medical Equipment Procedure Code Equipment Code Equipment Origin al Text Equipment Identifier Dates [place] Sut 5.5mm 2 Ft Crkscr Fbrwr Shldr 3 Pk 14.7mm Strl Ea=Bill-Only Rpl [id number] - [id number] Start: 05-15-2022 Use to test BLOO D SUGAR TWICE DAILY [id number] Start: 05-28-2020 Use to test BLOO D SUGAR TWICE DAILY, Diagnosis: E11.9 [id number] Start: 03-08-2020 Clinical Notes 10-22-2021 to 10-20-2023 Jan Olmstead, PT - 10/20/2023 9:45 AM Filomena Nassar - 09/22/2023 1:15 PM Kofi Lerma, PT - 08/26/2023 2:30 PM EDTFyasmeen Filomena - 08/21/2023 10:45 AM EDTPatient InstructionsAttachments Note Date & Type Note Facility 10-20-2023 History of Presen t illness Narrative [facility] Outpatient Physical Therapy Daily Note Patient: Karma Whitehead : 1980 CSN #: [id number] Referring Physician: Shawna Mcfadden DO Date: 10/20/2023 Treatment Diagnosis: LBP, cervical spine pain Onset Date: 02/18/23 PT Insurance Information: [employer] Total # of Visits Approved: 32 Per [...] the cervical area and her LB area.-met Senior Living Goals Time Frame for Senior Living Goals : 6 visits Senior Living Goal 1: Pt will be independent and compliant with exercise while maintaining improved posture 50% of the time - not met [employer] Goal 2: Pt will be able to perform full cervical ROM without increase complaints of baseline pain with initiation to demonstrate imporved control of pain -NOT MET: continued cervical spine pain. Senior Living Goal 3: Pt will report 40% improvement in overall complaints and improved tolerance to her job tasks - 40% improved. Senior Living Goal 4: Pt kvng UE strength will be 5/5 without increasing pain complaints to assist in tolerance of lifting and carrying -PARTIALLY MET 4+/5 grossly. Minutes Tracking: Time In: 944 Time Out: 1030 Minutes: 45 Timed Code Treatment Minutes: 43 Minutes Jan Olmstead PT, DPT, OCS, Cert. DN Date: 10/20/2023 documented in this encounter [facility] 09-22-2023 History of Presen t illness Narrative [...] her next appt. 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 Electric[employer] Goal 2: Pt will be able to perform full cervical ROM without increase complaints of baseline pain with initiation to demonstrate imporved control of pain. Senior Living Goal 3: Pt will report 40% improvement in overall complaints and improved tolerance to her job tasks. Minutes Tracking: Time In: 1430 Time Out: 1500 Minutes: 30 Timed Code Treatment Minutes: 29 Minutes Kofi Villegas, PT, DPT Date: 08/26/2023 documented in this encounter [facility] 08-21-2023 History of Presen t illness Narrative Physical Therapy Disregard the no show note on 08/17. This was added in error. [facility] Outpatient Physical Therapy Daily Note Patient: Karma Whitehead : 1980 CSN #: [id number] Referring Physician: Shawna Mcfadden DO Date: 08/21/2023 Treatment Diagnosis: pain in cervical and LB Onset Date: 02/18/23 PT Insurance Information: [employer] Total # of Visits Approved: 24 Per [...] the cervical area and her LB area. 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 Senior Living Goal 2: Pt will be able to perform full cervical ROM without increase complaints of baseline pain with initiation to demonstrate imporved control of pain. Senior Living Goal 3: Pt will report 40% improvement in overall complaints and improved tolerance to her job tasks. Senior Living Goal 4: Pt kvng UE strength will be 5/5 without increasing pain complaints to assist in tolerance of lifting and carrying. Minutes Tracking: Time In: 1045 Time Out: 1116 Minutes: 31 Timed Code Treatment Minutes: 29 Minutes Jan Olmstead PT, DPT Date: 08/21/2023 documented in this encounter [facility] 08-11-2023 History of Presen t illness Narrative [facility] Outpatient Physical Therapy Daily Note Patient: Karma Whitehead : 1980 CSN #: [id number] Referring Physician: Shawna Mcfadden DO Date: 08/11/2023 Diagnosis: Z76.89 - Persons encountering health services in other specified circumstances Treatment Diagnosis: pain in cervical and LB Onset Date: 02/18/23 PT Insurance Information: CX Plan Total # of Visits Approved: 24 Per Physician Order Total # of Visits to Date: 17 No Show: 0 Canceled Appointment: 0 08/28/23 Plan of Care/Recert Due Pre-Treatment Pain: 08/09 Subjective: Patient reports /10 cervical spine and R LBP coming into [...] the cervical area and her LB area. 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 Senior Living Goal 2: Pt will be able to perform full cervical ROM without increase complaints of baseline pain with initiation to demonstrate imporved control of pain. 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 Senior Living Goal 4: Pt kvng UE strength will be 5/5 without increasing pain complaints to assist in tolerance of lifting and carrying. Minutes Tracking: Time In: 1330 Time Out: 1400 Minutes: 30 Timed Code Treatment Minutes: 28 Minutes Jan Olmstead PT, DPT Date: 08/11/2023 documented in this encounter [facility] 07-14-2023 History of Presen t illness Narrative Physical Therapy [facility] Inpatient/Observation/Outpatient Rehabilitation Date: 07/14/2023 Patient Name: [...] does not require skilled services due to: Therapist/Candlemaker will attempt to see this patient, at our earliest opportunity. Filomena Raphael Date: 07/14/2023 documented in this encounter [facility] 06-02-2023 History of Presen t [...] Year discontinued? N/a Are you of Ashkenazi Gnosticism decent? no Family history of cancer: relation [...] or lymphadenopathy. I reviewed notes from her instrumentation tech dated 05/05/2023, imaging including mammogram and ultrasound dated 03/16/2023 and 03/25/2023, history form dated 06/02/2023. Past Medical History Past Medical History: Diagnosis Date Anxiety Asthma Back pain Bipolar 1 disorder ([facility] Breast disorder enlarged lymph nodes in both breast Carpal tunnel syndrome Chronic pain disorder Deep vein thrombosis ([facility]) blood clot in left [...] night 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 ([facility]) 11/10/2017 Visual impairment Past Surgical History Past Surgical History: Procedure Laterality Date ANKLE SURGERY Left x2 ARTHROSCOPY SHOULDER WITH ROTATOR CUFF REPAIR Right 05/15/2022 Performed by Chepe Ingram MD at [facility] DEBRIDEMENT Right 05/15/2022 Performed by Chepe Ingram MD at [facility] DECOMPRESSION OF SUBACROMIAL SPACE WITH PARTIAL ACROMIOPLASTY Right 05/15/2022 Performed by Chepe Ingram MD at [facility] INJECTION BLOCK EPIDURAL STEROID LUMBAR/SACRAL: L 4/5 WU N/A 04/22/2021 Performed by Pete Silver MD at [facility] INJECTION BLOCK SACROILIAC JOINT Left 03/27/2023 Performed by Pete Silver MD at [facility] INJECTION CERVICAL OR THORACIC EPIDURAL BLOCK WITH STEROIDS: C67 WU N/A 01/29/2018 Performed by Pete Silver MD at [facility] LUMBAR OR SACRAL EPIDURAL BLOCK WITH STEROIDS: L45 WU N/A 10/15/2018 Performed by Pete Silver MD at [facility] INJECTION MEDIAL BRANCH NERVE BLOCK: bilat L45 51 Bilateral 07/30/2018 Performed by Pete Silver MD at [facility] INJECTION SPINE TRANSFORAMINAL: left C 5,6 Nroot Left 01/09/2023 Performed by Pete Silver MD at [facility] LAPAROSCOPIC CHOLECYSTECTOMY N/A 09/16/2016 Performed by Juan Ramon Jean MD at [facility] LIVER BIOPSY EMA PROCEDURE Right 05/15/2022 Performed by Chepe Ingram MD at [facility] NASAL SURGERY REPAIR HERNIA UMBILICAL 09/16/2016 Performed by Juan Ramon Jean MD at [facility] TONSILLECTOMY Family History Family History Problem Relation [...] 5 blood-glucose meter (TRUE METRIX GLUCOSE METER) [facility], use to test BLOOD SUGAR TWICE DAILY, [...] , Rfl: lancets (UNILET LANCET) 28 gauge [facility], Use to test BLOOD SUGAR TWICE DAILY, [...] on 04/28/2023), Disp: 30 tablet, Rfl: 0 rnndfxfs-kobb-KK-calcium &mins (THERAGRAN-M) 9 mg iron-400 mcg tablet, [...] a bilateral screening mammogram on 03/16/2023 through [facility]. Her breast tissue is almost entirely fatty. There was a 1 cm mass in the posterior upper-outer right breast 17 cm from the nipple. They thought this was likely a lymph node but recommended that she return for additional imaging. She had the imaging done in [place]. They did a right diagnostic mammogram and [...] with any concerns. documented in this encounter [facility] 05-12-2023 Miscellaneous Notes Spoke with patient and scheduled with Dr. Robledo 4/2. Patient voiced understanding of appointment details. Patient was offered sooner dates but declined per her availability. documented in this encounter [facility] 05-12-2023 Telephone encounter Note Spoke with patient and scheduled with Dr. Robledo 4/2. Patient voiced understanding of appointment details. Patient was offered sooner dates but declined per her availability. [facility] 04-30-2023 Miscellaneous Notes Last Office Visit: 04/28/2023 Next Office Visit: Visit date not found Last Urine Drug Screen: No results found for: BENZOSCRN OARRS appropriate documented in this encounter [facility] 04-30-2023 Telephone encounter Note Last Office Visit: 04/28/2023 Next Office Visit: Visit date not found Last Urine Drug Screen: No results found for: BENZOSCRN OARRS appropriate [facility] 04-28-2023 History of Presen t illness Narrative [facility] [address] [place] [address] Patient: Karma Banegas Sex: female : 1980 [...] Anxiety Asthma Back pain Bipolar 1 disorder ([facility]) Breast disorder enlarged lymph nodes in both breast Carpal tunnel syndrome Chronic pain disorder Deep vein thrombosis ([facility]) blood clot in left arm Dental disease [...] night 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 ([facility]) 11/10/2017 Visual impairment Past Surgical History: Procedure Laterality Date ANKLE SURGERY Left x2 ARTHROSCOPY SHOULDER WITH ROTATOR CUFF REPAIR Right 05/15/2022 Performed by Chepe Ingram MD at [facility] DEBRIDEMENT Right 05/15/2022 Performed by Chepe Ingram MD at [facility] DECOMPRESSION OF SUBACROMIAL SPACE WITH PARTIAL ACROMIOPLASTY Right 05/15/2022 Performed by Chepe Ingram MD at [facility] INJECTION BLOCK EPIDURAL STEROID LUMBAR/SACRAL: L 4/5 WU N/A 04/22/2021 Performed by Pete Silver MD at [facility] INJECTION BLOCK SACROILIAC JOINT Left 03/27/2023 Performed by Pete iSlver MD at [facility] CERVICAL OR THORACIC EPIDURAL BLOCK WITH STEROIDS: C67 WU N/A 01/29/2018 Performed by Pete Silver MD at [facility] LUMBAR OR SACRAL EPIDURAL BLOCK WITH STEROIDS: L45 WU N/A 10/15/2018 Performed by Pete Silver MD at [facility] MEDIAL BRANCH NERVE BLOCK: bilat L45 51 Bilateral 07/30/2018 Performed by Pete Silver MD at [facility] SPINE TRANSFORAMINAL: left C 5,6 Nroot Left 01/09/2023 Performed by Pete Silver MD at [facility] LAPAROSCOPIC CHOLECYSTECTOMY N/A 09/16/2016 Performed by Juan Ramon Jean MD at [facility] LIVER BIOPSY EMA PROCEDURE Right 05/15/2022 Performed by Chepe Ingram MD at [facility] NASAL SURGERY REPAIR HERNIA UMBILICAL 09/16/2016 Performed by Juan Ramon Jean MD at [facility] TONSILLECTOMY Allergies Allergen Reactions Metformin Severe hypoglycemia [...] Hodge 04/30/23 1141 documented in this encounter [facility] [employer] 04-28-2023 Instructions Peg Conrad CNA - 04/28/2023 [...] nearest emergency room. documented in this encounter [facility] 04-20-2023 Hospital Discharg e instructions Precious Urbina APRN - LIBRARY SERIALS ASSISTANT - 04/20/2023 1:50 PM EST Increase fluid Tylenol Motrin for cough Continue home medications The following attachments cannot be sent through Care Everywhere.Head Injury: Closed: General Info (Nicaraguan)Cervical Strain (Nicaraguan)documented in this encounter [facility] 03-31-2023 Miscellaneous Notes Patient calls today and [...] medications prescribed to someone other than her. Vibration Technician reiterated this to patient. Patient's pharmacy was confirmed with her. Order pended for review and signature. documented in this encounter [facility] 03-31-2023 Telephone encounter Note Patient calls today [...] are prescribed to someone other than her. [facility] 03-31-2023 Telephone encounter Note Is she still taking prozac? What dosage? Any other antidepressants? [facility] 03-31-2023 Telephone encounter Note Call placed to patient to confirm whether or not she is taking Prozac or other antidepressants. Patient states she is taking 40 mg Prozac daily. That is the only antidepressant that she takes. She is prescribed Latuda and Lamictal to treat Bipolar. [facility] 03-31-2023 Telephone encounter Note Can try cymbalta 30mg once daily [facility] [employer] 03-31-2023 Telephone encounter Note Call placed to patient to inform her of provider's response. Patient is also educated not to take medications that are prescribed to someone other than her. Patient voices that she is aware that she should not be taking medications prescribed to someone other than her. Vibration Technician reiterated this to patient. Patient's pharmacy was confirmed with her. Order pended for review and signature. [facility] 03-05-2023 Evaluation note Encounter Date Diagnosis [...] was counseling done by myself, Rhina ROBERTSON. [facility] Other 01-01-2024 Hospital Discharge instructions* Discharge Instructions* Sil Sullivan DO - 03/02/2023 7:49 PM EST Please follow-up with your GI doctor, trial enema at home, return to the ER for worsening abdominalpain, inability to pass gas, or nausea, vomiting * Attachments The following attachments cannot be sent through Care Everywhere. * Constipation ([place]icaraguan) [facility] Miscellaneous Notes* Telephone Encounter - Argenis Storm [...] when she was under his care in [place]. She is currently taking Meloxicam that helps [...] states whatever . documented in this encounterOhioHealth [facility] HospitalEyeEm Beaum[facility] [id number] Telephone encounter Note* Telephone Encounter - Argenis [...] when she was under his care in [place]. She is currently taking Meloxicam that helps [...] add Dr. Silver on the note. PVU. [facility]12-22-2023 Telephone encounter Note* Telephone Encounter - Pete Silver MD - 02/20/2023 10:04 AM EST Discussed with nurse, I agree with Fartun's treatment plan going forward. [facility]12-22-2023 Telephone encounter Note* Telephone Encounter - UMESH Hodge - 02/20/2023 10:04 AM EST No Rx for tramadol. I have never written prescription for bra so I would not know how to proceed with anything like that. [facility]12-22-2023 Telephone encounter Note* Telephone Encounter - Argenis Storm RN - 02/20/2023 10:04 AM EST Patient aware of response. She states whatever . [facility]12-20-2023 Evaluation note* Encounter Date Diagnosis Assessment Notes Treatment Notes Treatment Clinical Notes Jan, Constipation, unspecified constipation type (ICD-10 - K59.00) Jan, Constipation (ICD-10 - K59.00) [facility] Other 12-12-2023 Miscellaneous Notes* Telephone Encounter - [...] has f/u appt documented in this encounterOhioHealth Marion General Hospitaltwo.42.solutions12-12-2023 Telephone encounter Note* Telephone Encounter - Margaux Olea CST - 02/10/2023 8:18 AM EST Received denial letter for an SI Inj. It is noted in prior requests, the member's chronic pain is related to discogenic causes with improvement in symptoms with shots directed the discogenic disorder. It is not noted why the source of the chronic pain is now related to sacroiliac joint. [facility] [id number] Telephone encounter Note* Telephone Encounter - UMESH [...] sufficient reason to deny the current request. [facility]12-12-2023 Telephone encounter Note* Telephone Encounter - Alfredito William - 02/10/2023 8:18 AM EST GOT APPROVAL [facility]12-12-2023 Telephone encounter Note* Telephone Encounter - Maty Fulton RN - 02/10/2023 8:18 AM EST Pt is scheduled 03/27 for procedure and has f/u appt [facility]12-07-2023 Evaluation note* Encounter Date Diagnosis Assessment Notes [...] R10.9) Jan, Rectal bleed (ICD-10 - K62.5) [facility] Other 11-16-2023 Evaluation note* Encounter Date Diagnosis [...] was counseling done by myself, Rhina ROBERTSON. [place] Other 11-08-2023 Evaluation note* Encounter Date Diagnosis [...] HAVE PATIENT START DOCUSATE 3 CAPSULES DAILY. [facility] Other 06-29-2023 Evaluation note* Encounter Date Diagnosis Assessment Notes Treatment Notes Treatment Clinical Notes Jul, Obesity (ICD-10 - E66.9) Jul, BMI 34.0-34.9,adult (ICD-10 - Z68.34) Jul, Other Summary of Visi t: (A) discussed continuing to work on small goals until stress decreases and she has the energy to increase goals (B) discussed healhtier choices at [place]- food blog reviewed (C) reviewed food storage tips for keeping produce fresh longer Patient set the following goals: - NEW: continue to choose sugar free beverages- not reviewed [facility] Other 05-30-2023 Evaluation note* Encounter Date Diagnosis [...] was counseling done by myself, Rhina ROBERTSON. [facility] [employer] Other 03-21-2023 Evaluation note* Encounter Date Diagnosis [...] was counseling done by myself, Rhina ROBERTSON. [place] Other 02-07-2023 Evaluation note* Encounter Date Diagnosis [...] set the following goals: not reviewed today [facility] Other 02-07-2023 Evaluation note* Encounter Date Diagnosis [...] was counseling done by myself, Rhina ROBERTSON. [facility] Other 12-28-2022 Evaluation note* Encounter Date Diagnosis [...] patient set personal goal using given handout. [facility] Other 12-27-2022 Evaluation note* Encounter Date Diagnosis [...] was counseling done by myself, Rhina ROBERTSON. [place] Other 12-01-2022 NotePROCEDURE: XR ANKLE LT MIN [...] Electronically authenticated by: ONEL CLARK Date: 2022-01-29 22:30[facility]12-01-2022 NotePROCEDURE: XR ANKLE LT MIN [...] Electronically authenticated by: ONEL CLARK Date: 2022-01-29 22:30[facility]11-15-2022 Evaluation note* Encounter Date Diagnosis [...] was counseling done by myself, Rhina ROBERTSON. [place] Other 10-05-2022 Evaluation note* Encounter Date Diagnosis [...] was counseling done by myself, Rhina ROBERTSON. [place] Other 08-30-2022 Evaluation note* Encounter Date Diagnosis Assessment Notes Treatment Notes Treatment Clinical Notes Sep, Fatty liver (ICD-10 - K76.0) ENCOURAGED WEIGHT LOSS Sep, Obesity (BMI 30-39.9) (ICD-10 - E66.9) [place] Other 08-23-2022 Hospital Discharge instructions* Discharge Instructions* Stanley Almonte PA-C - 10/22/2021 2:03 PM EDT Follow-up with primary care doctor 7 to 10 days for reevaluation. Take Motrin 800 mg as directed with food. Start eardrops left ear as directed. Promptly return to emergency department for new, changing or worsening of symptoms or other concerns. [facility] [employer] Work Phone: evaluation + Plan note No data available for this section [facility] HospitalEvaluation note* Diagnosis Pilonidal cyst- Primary Pilonidal cyst without mention of abscess documented in this encounter [facility] [employer] Phone: evaluation note* Diagnosis Acute diffuse otitis externa of left ear- Primary documented in this encounter [facility] [employer] Phone: evalvypfcd noteNo [employer] Other Evaluation note* Diagnosis Constipation, unspecified constipation type- Primary documented in this encounter [facility] [employer] noteNo assessment information available [facility] Work Phone: Evaluation note* Diagnosis Closed head injury, initial encounter- Primary Fall due to slipping on ice or snow, initial encounter Acute cervical myofascial strain, initial encounter documented in this encounter [facility] [employer] note* Diagnosis Lumbosacral spondylosis without myelopathy- Primary documented in this encounter [facility] CenterAspects SoftwareEvaluation note* Diagnosis Mass of upper outer quadrant of right breast- Primary Abnormal mammogram Abnormal mammogram, unspecified Symptomatic mammary hypertrophy documented in this encounter [facility] CenterKodable SystemEvaluation note* Diagnosis Onset Date Resolution Status ADHD acute BMI 36.0-36.9,adult acute Constipation acute Diabetes mellitus with hyperglycemia acute Fatty liver acute IBS (irritable bowel syndrome) acute Obesity acute Shifting sleep-work schedule, affecting sleep acute Constipation acute Elevated liver function tests acute Fatty liver acute IBS (irritable bowel syndrome) acute [facility] Work Phone: Hisuhet general Narrative - Reported* Type Description Date Medical History PTSD Medical History DIVERTICULITOUS Surgical History 2 BACK INJECTIONS 2014 Surgical History LEFT ANKLE 2002 Surgical History CHOLECYSTECTOMY Hospitalization History SEE ABOVE [place] Other Hisht[facility] general Narrative - Reported* Type Description Date Medical History PTSD Medical History DIVERTICULITOUS Medical History bipolar Medical History ADHD Surgical History 2 BACK INJECTIONS 2015 Surgical History LEFT ANKLE 2002 Surgical History CHOLECYSTECTOMY Surgical History nasal surgery Hospitalization History SEE ABOVE [place] [facility] Narrative - Reported* Type Description Date Medical History PTSD Medical History DIVERTICULITOUS Medical History bipolar Medical History ADHD Surgical History 2 BACK INJECTIONS 2014 Surgical History LEFT ANKLE 2002 Surgical History CHOLECYSTECTOMY Surgical History nasal surgery Surgical History right Rotator surgery 05-15-22 Hospitalization History SEE ABOVE [facility] Narrative - Reported* Type Description Date Medical History PTSD Medical History DIVERTICULITOUS Medical History bipolar Medical History ADHD Medical History rotator cuff tear Surgical History 2 BACK INJECTIONS 2014 Surgical History LEFT ANKLE 2001 Surgical History CHOLECYSTECTOMY Surgical History nasal surgery Surgical History right Rotator surgery 05-15-22 Hospitalization History SEE ABOVE [facility] Narrative - Reported* Type Description Date Medical History PTSD Medical History DIVERTICULITOUS Medical History bipolar Medical History ADHD Medical History rotator cuff tear Surgical History 2 BACK INJECTIONS 2014 Surgical History LEFT ANKLE 2002 Surgical History CHOLECYSTECTOMY Surgical History nasal surgery Surgical History right Rotator surgery 05-15-22 Surgical History Neck injections/root burnt 12/31 Hospitalization History SEE ABOVE [place] [facility] general Narrative - Reported* Type Description Date Medical History PTSD Medical History DIVERTICULITOUS Medical History bipolar Medical History ADHD Medical History rotator cuff tear Surgical History 2 BACK INJECTIONS 2014 Surgical History LEFT ANKLE 2002 Surgical History CHOLECYSTECTOMY Surgical History nasal surgery Surgical History right Rotator surgery 05-15-22 Surgical History Neck injections/root burnt 12/31 Hospitalization History SEE ABOVE Hospitalization History [facility] onstipation 03-02-2023 [facility] Discharge instructions* Attachments The following attachments cannot be sent through Care Everywhere. * Pilonidal Abscess ([place]) [facility] Work Phone: Hospital Discharge instructions No data available for this section [facility]ructions[facility] on filedocumented in this encounter [facility] filed[facility] this [facility] on filedocumented in this encounter [facility]ructionsNot on filedocumented in this encounter [facility]ructionsNot on filedocumented in this encounter [facility] note No data available for this section [facility] HospitalReason for visit Narrative* Consultation (Routine) - Pending Review Specialty Diagnoses / Procedures Referred By Contac t Referred To Contact Breast Surgery Diagnoses Abnormal mammogram Carmen Fisher MD [address] [place] [id number] Ila Trevizo MD [address] [place] [phone] Referral ID Status Reason Start Date Expiration Date V isits Requested Visits Authorized [id number] Pending Review 05/06/2023 05/05/2024 1 1 [facility] Summary Purpose Family History No Family History [...] Obesity (BMI 30-39.9 ) (E66.9) Referral Organization [facility] Gastroenterolo gy Referring Provider First Name Yo [...] [address], [place] [address] [place] [address] Referral ID Status Reason Start Date Expiration Date V isits Requested Visits Authorized [id number] Pending Review 04/28/2023 04/27/2024 1 1 Chief [...] section and content) DATE CREATED AUTHOR 08/26/2017 [facility] DATE CREATED AUTHOR AUTHOR'S ORGANIZ ATION 05/30/2022 [facility] DATE CREATED AUTHOR AUTHOR'S ORGANIZ ATION 01/18/2023 [facility] DATE CREATED AUTHOR AUTHOR'S ORGANIZ ATION 06/04/2023 [facility] DATE CREATED AUTHOR AUTHOR'S ORGANIZ ATION 08/03/2023 [facility] DATE CREATED AUTHOR AUTHOR'S ORGANIZ ATION 10/07/2023 [facility] DATE CREATED AUTHOR AUTHOR'S ORGANIZ ATION 10/10/2023 [facility] DATE CREATED AUTHOR AUTHOR'S ORGANIZ ATION 11/24/2023 [facility] DATE CREATED AUTHOR AUTHOR'S ORGANIZ ATION 11/30/2023 [facility] DATE CREATED AUTHOR AUTHOR'S ORGANIZ ATION 12/20/2023 [facility] Reason for Visit (unrecogniz ed [...] Dispensed Refills Start Date End Da te nmmwrxnm-fkukbxlrd-pmobhm ortisone (CORTISPORIN) [id number] 4 drops into the [...] Teams (unrecognized sec tion and content) Hand Riveter Relationship Specialty Start Date End Date Shawna Mcfadden DO [address] [place] [address] PCP - General Family Medicine 10/12/21 Hand Riveter Relationship Specialty Start Date End Date Shawna Mcfadden DO [address] [place] [address] PCP - General Family Medicine 10/12/21 Hand Riveter Relationship Specialty Start Date End Date Shawna Mcfadden DO [address] [place] [address] PCP - General Family Medicine 10/12/21 Hand Riveter Relationship Specialty Start Date End Date Shawna Mcfadden DO [address] [place] [address] PCP - General Family Medicine 05/02/22 Hand Riveter Relationship Specialty Start Date End Date Shawna Mcfadden DO [address] [place] [address] PCP - General Family Medicine 10/12/21 Hand Riveter Relationship Specialty Start Date End Date Shawna Mcfadden DO [address] [place] [address] PCP - General Family Medicine 05/02/22 Team [...] Care Provider Active Start: March 18, 2023 Hand Riveter Relationship Specialty Start Date End Date Shawna Mcfadden DO [address] [place] [address] PCP - General Family Medicine 05/02/22 Hand Riveter Relationship Specialty Start Date End Date Shawna Mcfadden DO [address] [place] [address] PCP - General Family Medicine 10/12/21 Hand Riveter Relationship Specialty Start Date End Date Shawna Mcfadden DO [address] [place] [address] PCP - General Family Medicine 05/02/22 Hand Riveter Relationship Specialty Start Date End Date Shawna Mcfadden DO [address] [place] [address] PCP - General Family Medicine 10/12/21 Hand Riveter Relationship Specialty Start Date End Date Shawna Mcfadden DO [address] [place] [address] PCP - General Family Medicine 05/02/22 Hand Riveter Relationship Specialty Start Date End Date Shawna Mcfadden DO [address] [place] [address] PCP - General Family Medicine 05/02/22 Team Status: Active Member Role Status Dates Rory Driver , [facility] Primary Care Provider Active Team Status: Inactive Member Role Status Dates Gayathri Adams APRN Attending Provider Active Start: May 21, 2023 End: May 21, 2023 Rory Driver [facility] Primary Care Provider Active Start: May 21, 2023 End: May 21, 2023 Team Status: Inactive Member Role Status Dates Jan Garg APRN Attending Provider Active Start: May 21, 2023 End: May 21, 2023 Rory Driver [facility] Primary Care Provider Active Start: May 21, 2023 End: May 21, 2023 Hand Riveter Relationship Specialty Start Date End Date Shawna Mcfadden DO [address] [facility] [place] [address] PCP - General Family Medicine 10/12/21 Hand Riveter Relationship Specialty Start Date End Date Shawna Mcfadden DO [address] [facility] [place] [address] PCP - General Family Medicine 10/12/21 Hand Riveter Relationship Specialty Start Date End Date Loreto Mcneal APRN - CREATIVE SERVICES WRITER [address] [facility] [place] [address] PCP - General 11/11/23 Goals (unrecognized section [...] BE BASED ON THE PRIMARY CLINICAL RECORDS. [facility]. provides no warranty or guarantee of the accuracy or completeness of information in this document.
== END 2023-12-31 23:59 | disposition home or self-care (01) ==
LOC: HEMC 07:28
PROVIDERS: PCP Nurse Practitioner Family; Visit Provider Internal Medicine Hematology & Oncology
DX: D50.9 Iron deficiency anemia, unspecified (principal); Z90.49 Acquired absence of other specified parts of digestive tract; K21.9 Gastro-esophageal reflux disease without esophagitis; M79.10 Myalgia, unspecified site; M25.50 Pain in unspecified joint; K57.92 Diverticulitis of intestine, part unspecified, without perforation or abscess without bleeding
CPT/HCPCS: G0463

== ENCOUNTER 2023-12-23 09:16 | Outpatient (OUT) | payer OTHER, SELFPAY ==
--- NOTE | 2023-12-23 12:18 | PM.CN ---
Consult Note: HPI Data of Consult Patient: known to practice within the last 3 years Consult date: 11/16/23 Requesting Physician: Nancy Lipscomb NP Primary Care Provider: Loreto Mcneal NP Consult Narrative Reason for consult: low back, left leg pain Narrative: 43yof who presents for evaluation. worsening low back pain with radiation into left lower extremity. engages in biweekly chiropractic therapy >6 weeks, without lasting benefit. has engaged in >6 weeks of provider directed home exercises, without lasting benefit. most recent advanced imaging was >2 years ago. has had previous lumbar esis, with good benefit. has used flexeril, tizanidine, mobic, voltaren, tramadol, norco. denies adverse med side effects. recently underwent lumbar MRI with results below. cc:: CC: Nancy Lipscomb NP Meds Home Medications and Allergies Home Medications ?Medication ?Instructions ?Recorded ?Confirmed ?Type Bifidobacterium infantis 4 mg 4 mg PO DAILY 10/24/23 10/24/23 History capsule (Align) ascorbic acid (vitamin C) 500 mg 500 mg PO BID 10/24/23 10/24/23 History tablet (Vitamin C) cholecalciferol (vitamin D3) 50 50 mcg PO DAILY 10/24/23 10/24/23 History mcg (2,000 unit) capsule ciclopirox 0.77 % topical cream 1 applic topical Q12H 10/24/23 10/24/23 History duloxetine 60 mg capsule,delayed 60 mg PO DAILY 10/24/23 10/24/23 History release empagliflozin 25 mg tablet 25 mg PO DAILY 10/24/23 10/24/23 History (Jardiance) famotidine 40 mg tablet 40 mg PO DAILY 10/24/23 10/24/23 History fluoxetine 60 mg tablet 60 mg PO DAILY 10/24/23 10/24/23 History gabapentin 300 mg capsule 300 mg PO Q12H 10/24/23 10/24/23 History lamotrigine 200 mg tablet 200 mg PO DAILY 10/24/23 10/24/23 History liraglutide 0.6 mg/0.1 mL (18 mg/3 0.6 mg subcut Q24H 10/24/23 10/24/23 History mL) subcutaneous pen injector (Victoza 3-Ramon) lisdexamfetamine 20 mg capsule 70 mg PO DAILY 10/24/23 10/24/23 History (Vyvanse) lurasidone 120 mg tablet 120 mg PO DAILY 10/24/23 10/24/23 History multivitamin with folic acid 400 1 tab PO DAILY 10/24/23 10/24/23 History mcg tablet (Daily-Karely (with folic acid)) oxycodone-acetaminophen 5 mg-325 1 tab PO Q8H PRN pain 2 days #6 10/24/23 Rx mg tablet (Percocet) tabs pioglitazone 30 mg tablet 30 mg PO DAILY 10/24/23 10/24/23 History rosuvastatin 10 mg tablet 10 mg PO DAILY 10/24/23 10/24/23 History sumatriptan succinate 100 mg tablet 100 mg PO PRN migraine headache 10/24/23 History trazodone 50 mg tablet 50 mg PO DAILY 10/24/23 10/24/23 History vitamin B complex 1 tab PO Q24H 10/24/23 10/24/23 History albuterol sulfate 0.63 mg/3 mL 0.63 mg inhalation TID PRN 11/16/23 11/16/23 History solution for nebulization bronchospasm albuterol sulfate 90 mcg/actuation 2 inh inhalation QID PRN shortness 11/16/23 11/16/23 History aerosol inhaler (Proventil HFA) of breath or wheezing biotin injectioin .every other week 11/16/23 History cyclobenzaprine 10 mg tablet 10 mg PO TID PRN muscle spasm #90 11/16/23 Rx tabs diclofenac sodium 75 mg 75 mg PO BID PRN pain #60 tabs 11/16/23 Rx tablet,delayed release fluticasone propionate 50 1 spray intranasal DAILY PRN 11/16/23 11/16/23 History mcg/actuation nasal allergy symptoms spray,suspension (24 Hour Allergy Relief) invizia 11/16/23 History mupirocin 2 % topical ointment topical 11/16/23 History nystatin 100,000 unit/gram topical topical 11/16/23 History cream rizatriptan 10 mg tablet (Maxalt) See Rx Instructions PO .COMPLEX 11/16/23 11/16/23 History tizanidine 4 mg tablet 8 mg .hs 11/16/23 History tramadol 50 mg tablet mg 11/16/23 History Allergies Allergy/AdvReac Type Severity Reaction Status Date / Time cephalexin (From Keflex) Allergy Intermediate Rash Verified 10/24/23 04:44 citalopram (From Celexa) Allergy Intermediate Rash Verified 10/24/23 04:44 metformin Allergy Intermediate Nausea Verified 10/24/23 04:44 Exam Narrative Exam Narrative: Psych-alert and oriented x 3. Attentive and appropriate, constitutionally normal, displays normal mood and affect per situation. There are no obvious deficits in memory, reasoning, or intellect.? Skin-no obvious rashes, bruising, erythema noted to the patient's area of pain.? Extremities- extremities are warm with minimal edema and palpable pulses. Lumbar-tenderness to palpation noted in the lumbar spine and paraspinal musculature. Pain is elicited with flexion, extension, and lateral rotation of the lumbar spine. Range of motion is diminished with these motions. Facet loading maneuvers are positive. Strength-noted to be unremarkable with the exception of decreased strength rated at 4 out of 5 in left quadriceps femoris, anterior tibialis. Sensory-no notable sensory deficits in the bilateral lower extremities to touch or pinprick in all dermatomal distributions with the exception to decreased sensation to the bilateral L4, 5,S1 dermatomal distribution Coordination remains intact.? Gait remains non-antalgic. Results Imaging Lumbar MRI: Attestation: I have reviewed the pertinent imaging results. Radiologist's impression: 12-L1: No significant disc/facet abnormality, spinal stenosis, or foraminal stenosis. L1-L2: No significant disc/facet abnormality, spinal stenosis, or foraminal stenosis. L2-L3: No significant disc/facet abnormality, spinal stenosis, or foraminal stenosis. L3-L4: Mild foramen narrowing bilaterally without significant central canal narrowing. Mild diffuse disc bulging and mild facet arthropathy. No significant disc height reduction. L4-L5: Moderate right, mild left foramen narrowing. No significant central canal narrowing. Mild diffuse disc bulging and small posterior annular tear. No significant disc height reduction. Moderate right, mild left degenerative facet arthropathy. L5-S1: Mild foramen narrowing bilaterally without significant central canal narrowing. 6 mm posterior central disc protrusion without appreciable central canal narrowing or neural impingement. No disc height reduction. Mild degenerative facet arthropathy. Assessment and Plan Assessment and Plan (1) Lumbar stenosis with neurogenic claudication: (2) Lumbar spondylosis: Plan bilateral L5-S1 TFESI under fluoroscopy, could furthermore consider bilateral L4-5 TFESI if needed continue HEP as tolerated continue current medications f/u 2 weeks after WU
== END 2023-12-23 09:17 | disposition home or self-care (01) ==
LOC: PM 09:20
PROVIDERS: PCP Nurse Practitioner Family; Visit Provider Nurse Practitioner
DX: M48.062 Spinal stenosis, lumbar region with neurogenic claudication (principal); M47.816 Spondylosis without myelopathy or radiculopathy, lumbar region
CPT/HCPCS: G0463

== ENCOUNTER 2024-01-08 03:54 | Emergency (ER) | payer OTHER, SELFPAY ==
[2024-01-08 03:57] VITALS: BP 132/93; PULSE 94; TEMP 36.4; O2SAT 100; BMI 36.3
--- NOTE | 2024-01-08 04:13 | CT_ITS ---
The [address] [address] Patient Name: PEE WHITEHEAD MRN: [id number] date: 1980 Sex: F Assigned Patient Location: ER Current Patient Location: [facility] Accession/Order Number: [id number] Exam Date: 01/08/2024 04:31 Report Date: 01/08/2024 05:43 At the request of: GABY MARKER Procedure: CT abdomen pelvis wo con EXAM: CT abdomen pelvis wo con HISTORY: left flank pain, hx kidney stones COMPARISON: CT abdomen and pelvis examination dated 10/24/2023. TECHNIQUE: Noncontrast axial CT images through the abdomen and pelvis were obtained with coronal and sagittal reformats. Dose reduction techniques were achieved by using automated exposure control and/or adjustment of mA and/or kV according to patient size and/or use of iterative reconstruction technique. FINDINGS: Calcified granulomas are seen in the left lower lobe. A calcified left hilar lymph node is noted. Abdomen: Please note that the sensitivity for detection of focal lesions or vascular disease is markedly reduced without intravenous contrast. There is a subcentimeter hypodensity in the right hepatic lobe that is too small to characterize by CT size criteria. Splenic calcifications are suggestive of prior granulomatous disease. The liver is enlarged measuring up to 17.9 cm at the right midclavicular line. Otherwise, the spleen is unremarkable. There is no intra or extrahepatic biliary duct dilatation. The gallbladder is surgically absent. There are nonobstructive right renal calculi measuring up to 0.3 cm. There is a 0.3 cm calculus near the left ureterovesicular junction with mild left hydroureter and hydronephrosis. Right adrenal calcifications are suggestive of prior hemorrhage or infection. There is colonic diverticulosis without evidence of acute inflammation. Otherwise, the pancreas, adrenal glands, and bowel loops, including the appendix, are unremarkable. There is no mesenteric or retroperitoneal lymphadenopathy. Pelvis: The bladder and rectum are unremarkable. There is no iliac or inguinal lymphadenopathy. The uterus is present. The ovaries appear within normal limits by CT. Bone windows show no aggressive osseous lesions. CT/CT abdomen pelvis wo con IMPRESSION: 1. There is a 0.3 cm calculus near the left ureterovesicular junction with mild left hydroureter and hydronephrosis. 2. Nonobstructive right renal calculi. 3. Status post cholecystectomy. 4. Colonic diverticulosis without evidence of acute inflammation. 5. Normal appendix. 6. Hepatomegaly. Electronically authenticated by: Rena AVALOS Date: 01/08/2024 05:43
--- NOTE | 2024-01-08 04:23 | ED.GENADUL1 ---
HPI HPI - General Adult General Chief complaint: Urogenital-Female Stated complaint: flank pain Time Seen by Provider: 01/08/24 04:06 Source: patient Mode of arrival: walk-in History of Present Illness HPI narrative: This 43-year-old female with a history of diabetes and kidney stones presents for evaluation of acute onset of left flank pain that radiates into her left lower quadrant associated with nausea. The symptoms started earlier this morning. She states she has not been able to get to sleep due to her discomfort. She has not had any fever. She denies any dysuria or urinary tract symptoms prior to development of her flank pain. She denies any chest pain or shortness of breath. She has had kidney stones in the past that but has never required surgery or lithotripsy. She had a kidney stone on the right side in September of this year. She states she passed that after taking Flomax. Related Data Home Medications ?Medication ?Instructions ?Recorded ?Confirmed Bifidobacterium infantis 4 mg 4 mg PO DAILY 10/24/23 01/08/24 capsule (Align) ascorbic acid (vitamin C) 500 mg 500 mg PO BID 10/24/23 01/08/24 tablet (Vitamin C) cholecalciferol (vitamin D3) 50 50 mcg PO DAILY 10/24/23 01/08/24 mcg (2,000 unit) capsule ciclopirox 0.77 % topical cream 1 applic topical Q12H 10/24/23 01/08/24 duloxetine 60 mg capsule,delayed 60 mg PO DAILY 10/24/23 01/08/24 release empagliflozin 25 mg tablet 25 mg PO DAILY 10/24/23 01/08/24 (Jardiance) famotidine 40 mg tablet 40 mg PO DAILY 10/24/23 01/08/24 fluoxetine 60 mg tablet 60 mg PO DAILY 10/24/23 01/08/24 gabapentin 300 mg capsule 300 mg PO Q12H 10/24/23 01/08/24 lamotrigine 200 mg tablet 200 mg PO DAILY 10/24/23 01/08/24 liraglutide 0.6 mg/0.1 mL (18 mg/3 0.6 mg subcut Q24H 10/24/23 01/08/24 mL) subcutaneous pen injector (Victoza 3-Ramon) lisdexamfetamine 20 mg capsule 70 mg PO DAILY 10/24/23 01/08/24 (Vyvanse) lurasidone 120 mg tablet 120 mg PO DAILY 10/24/23 01/08/24 multivitamin with folic acid 400 1 tab PO DAILY 10/24/23 01/08/24 mcg tablet (Daily-Karely (with folic acid)) pioglitazone 30 mg tablet 30 mg PO DAILY 10/24/23 01/08/24 rosuvastatin 10 mg tablet 10 mg PO DAILY 10/24/23 01/08/24 sumatriptan succinate 100 mg tablet 100 mg PO PRN migraine headache 10/24/23 trazodone 50 mg tablet 50 mg PO DAILY 10/24/23 01/08/24 vitamin B complex 1 tab PO Q24H 10/24/23 01/08/24 albuterol sulfate 0.63 mg/3 mL 0.63 mg inhalation TID PRN 11/16/23 01/08/24 solution for nebulization bronchospasm albuterol sulfate 90 mcg/actuation 2 inh inhalation QID PRN shortness 11/16/23 01/08/24 aerosol inhaler (Proventil HFA) of breath or wheezing biotin injectioin .every other week 11/16/23 fluticasone propionate 50 1 spray intranasal DAILY PRN 11/16/23 01/08/24 mcg/actuation nasal allergy symptoms spray,suspension (24 Hour Allergy Relief) invizia 11/16/23 mupirocin 2 % topical ointment topical 11/16/23 nystatin 100,000 unit/gram topical topical 11/16/23 cream rizatriptan 10 mg tablet (Maxalt) See Rx Instructions PO .COMPLEX 11/16/23 01/08/24 tizanidine 4 mg tablet 8 mg .hs 11/16/23 tramadol 50 mg tablet mg 11/16/23 ferrous sulfate 325 mg (65 mg mg 01/08/24 iron) tablet (FeroSul) Previous Rx's ?Medication ?Instructions ?Recorded cyclobenzaprine 10 mg tablet 10 mg PO TID PRN muscle spasm #90 11/16/23 tabs diclofenac sodium 75 mg 75 mg PO BID PRN pain #60 tabs 11/16/23 tablet,delayed release Allergies Allergy/AdvReac Type Severity Reaction Status Date / Time cephalexin (From Keflex) Allergy Intermediate Rash Verified 01/08/24 04:07 citalopram (From Celexa) Allergy Intermediate Rash Verified 01/08/24 04:07 metformin Allergy Intermediate Nausea Verified 01/08/24 04:07 Opioid HPI Opioid Management Most Recent Opioid Data: Last Pain Scale 7 10/24/23 07:19 10/24/23 Ur Phencyclidine Scrn Negative (NEGATIVE) 10/24/23 05:14 10/24/23 Review of Systems ROS Status of ROS 10 or more systems reviewed and unremarkable except as noted in history and below Exam Narrative Exam Narrative: Vital signs and Nursing Notes reviewed: Patient is afebrile with a normal pulse, pressure is elevated at 132/93, she has not hypoxic with pulse ox of 100% on room air General: Awake, alert, oriented, nontoxic but uncomfortable appearing overweight female sitting [place] Citizen style on the bed, no respiratory distress, no active vomiting HEENT: Normocephalic atraumatic, mucous membranes are moist and pink, eyes are clear, normal conjunctiva, vision is grossly intact Chest: Lungs are clear to auscultation with good air entry, there is no wheezing rhonchi or rales appreciated no accessory muscle use, patient is speaking in complete sentences-no chest wall tenderness to palpation CVS: Regular rate and rhythm S1-S2, no murmurs rubs or gallops, pulses are brisk and equal bilaterally ABD: Soft, nondistended, mild tenderness in the left lower quadrant of the abdomen and along the distribution of the left ureter and left flank Musc: Tenderness in the left lower lumbar region with tenderness across the distribution of the left ureter and into the left lower quadrant of the abdomen with no rebound guarding or rigidity Extremities: Moving all extremities, no lower extremity tenderness or swelling noted, negative Homans' sign, pulses are brisk and equal bilaterally Skin: Normal in appearance without rash,pallor, petechiae or purpura Neuro: No focal deficits Constitutional Vital Signs, click to edit/add: Last Vital Signs Temp 97.6 F 01/08/24 03:57 Pulse 94 H 01/08/24 03:57 Resp 18 01/08/24 03:57 BP 132/93 H 01/08/24 03:57 Pulse Ox 100 01/08/24 03:57 O2 Del Method Room Air 01/08/24 03:57 Course Vital Signs Vital signs: Vital Signs Temperature 97.6 F 01/08/24 03:57 Pulse Rate 94 H 01/08/24 03:57 Respiratory Rate 18 01/08/24 03:57 Blood Pressure 132/93 H 01/08/24 03:57 Pulse Oximetry 100 01/08/24 03:57 Oxygen Delivery Method Room Air 01/08/24 03:57 Temperature 97.6 F 01/08/24 03:57 Pulse Rate 94 H 01/08/24 03:57 Respiratory Rate 18 01/08/24 03:57 Blood Pressure 132/93 H 01/08/24 03:57 Pulse Oximetry 100 01/08/24 03:57 Oxygen Delivery Method Room Air 01/08/24 03:57 Medical Decision Making MDM Narrative Medical decision making narrative: This 43 of female presents for evaluation of acute onset of left lower quadrant abdominal pain and flank pain associated with nausea. She has had kidney stones in the past. She denies any urinary frequency urgency dysuria or hematuria. She has not had a fever. Her clinical presentation was consistent with renal colic. An IV was placed and she was medicated with IV Zofran and Toradol with clinical improvement. Routine labs were ordered and are reviewed. She has a normal white count and hemoglobin. Electrolytes are normal. She is diabetic but her glucose is only minimally elevated at 119. She has a normal BUN and creatinine. Urine is positive for blood but negative for infection. CT scan of the abdomen pelvis without IV contrast was ordered and shows a 0.3 cm kidney stone at the left UVJ. It also shows calcified granulomas in the spleen and calcified lymph nodes in the hilum and left lower lobe of her lung. There are also right adrenal calcification suggestive of prior hemorrhage or infection. The results of the CT scan were discussed with her in detail and she was given a copy to share with her family physician. She is feeling better after IV Toradol and Zofran and feels comfortable being discharged home. She is driving home so the narcotic analgesics were withheld. She will be sent home with a prescription for [place], Zofran and Flomax. She was encouraged to drink plenty of fluids and return to the emergency department for fever, worsening pain or any concerns. Lab Data Lab results reviewed: Yes I reviewed the patient's lab results Labs: Lab Results 01/08/24 01/08/24 Range/Units 04:30 05:15 WBC 9.7 (4.0-11.0) 10^3/uL RBC 4.40 (4.20-5.40) 10^6/uL Hgb 12.5 (12.0-16.0) g/dL Hct 38.7 (36.0-48.0) % MCV 88.0 (81.0-99.0) fL MCH 28.4 (26.7-34.0) pg MCHC 32.3 (29.9-35.2) g/dL RDW 13.6 (11.0-15.0) % Plt Count 330 (150-450) 10^3/uL MPV 10.2 (9.5-13.5) fL Neut % (Auto) 56.0 (43.0-75.0) % Lymph % (Auto) 34.1 (20.5-60.0) % [place] % (Auto) 7.0 (1.7-12.0) % Eos % (Auto) 2.1 (0.9-7.0) % Baso % (Auto) 0.4 (0.2-2.0) % Neut # (Auto) 5.5 (1.4-6.5) 10^3/uL Lymph # (Auto) 3.3 (1.2-3.8) 10^3/uL [place] # (Auto) 0.7 (0.3-0.8) 10^3/uL Eos # (Auto) 0.2 (0.0-0.7) 10^3/uL Baso # (Auto) 0.0 (0.0-0.1) 10^3/uL Abs Immat Gran (auto) 0.04 H (0.00-0.03) 10^3/uL Imm/Tot Granulo (auto) 0.4 (0.0-0.5) % Sodium 140 (136-145) mmol/L Potassium 3.7 (3.5-5.1) mmol/L Chloride 104 (98-107) mmol/L Carbon Dioxide 24.4 (21.0-32.0) mmol/L Anion Gap 15.3 BUN 24.0 H (7.0-18.0) mg/dL Creatinine 0.97 (0.55-1.02) mg/dL Est GFR ( Amer) >60 (>=60 mL/min/1.73m^2) Est GFR (Non-Af Amer) >60 (>=60 mL/min/1.73m^2) BUN/Creatinine Ratio 24.7 Glucose 119 H (74-106) mg/dL Calcium 9.0 (8.5-10.1) mg/dL Total Bilirubin 0.3 (0.2-1.0) mg/dL AST 30 (15-37) U/L ALT 46 (14-59) U/L Alkaline Phosphatase 98 (46-116) U/L Total Protein 7.0 (6.4-8.2) g/dL Albumin 3.3 L (3.4-5.0) g/dL Globulin 3.7 g/dL Albumin/Globulin Ratio 0.9 Urine Color Yellow (YELLOW) Urine Clarity Cloudy A (CLEAR) Urine pH 6.0 (5.0-9.0) Ur Specific [place] 1.025 (1.005-1.025) Urine Protein Negative (NEG/TRACE) mg/dL Urine Glucose (UA) >=1000 A (NEGATIVE) mg/dL Urine Ketones Negative (NEGATIVE) mg/dL Urine Occult Blood Large A (NEGATIVE) Urine Nitrite Negative (NEGATIVE) Urine Bilirubin Negative (NEGATIVE) Urine Urobilinogen 0.2 (0.2-1.0) EU/dL Ur Leukocyte Esterase Negative (NEGATIVE) Urine RBC >100 A (0-2) #/HPF Urine WBC 0-2 A (NONE SEEN) #/HPF Ur Squamous Epith Cells Few A (NONE/RARE) #/LPF Urine Crystals None seen (None Seen) #/HPF Urine Bacteria Small A (NONE SEEN) #/HPF Urine Casts None seen (NONE SEEN) #/LPF Urine Mucus Trace A (NONE SEEN) Ur Culture Indicated? Yes Discharge Plan Discharge Chief Complaint: Urogenital-Female Clinical Impression: Kidney stone on left side Patient Disposition: Home, Self-Care Time of Disposition Decision: 06:09 Condition: Good Prescriptions / Home Meds: No Action ascorbic acid (vitamin C) [Vitamin C] 500 mg tablet 500 mg PO BID Align 4 mg capsule 4 mg PO DAILY cholecalciferol (vitamin D3) 50 mcg (2,000 unit) capsule 50 mcg PO DAILY ciclopirox 0.77 % cream 1 applic TOPICAL Q12H duloxetine 60 mg capsule,delayed release(DR/EC) 60 mg PO DAILY Jardiance 25 mg tablet 25 mg PO DAILY famotidine 40 mg tablet 40 mg PO DAILY fluoxetine 60 mg tablet 60 mg PO DAILY gabapentin 300 mg capsule 300 mg PO Q12H lamotrigine 200 mg tablet 200 mg PO DAILY liraglutide [Victoza 3-Ramon] 0.6 mg/0.1 mL (18 mg/3 mL) pen injector 0.6 mg SUBCUT Q24H lisdexamfetamine [Vyvanse] 20 mg capsule 70 mg PO DAILY lurasidone 120 mg tablet 120 mg PO DAILY multivitamin with folic acid [Daily-Karely (with folic acid)] 400 mcg tablet 1 tab PO DAILY pioglitazone 30 mg tablet 30 mg PO DAILY rosuvastatin 10 mg tablet 10 mg PO DAILY sumatriptan succinate 100 mg tablet 100 mg PO PRN (Reason: migraine headache) trazodone 50 mg tablet 50 mg PO DAILY Rx Instructions: HS vitamin B complex Tablet 1 tab PO Q24H diclofenac sodium 75 mg tablet,delayed release (DR/EC) 75 mg PO BID PRN (Reason: pain) Qty: 60 2RF cyclobenzaprine 10 mg tablet 10 mg PO TID PRN (Reason: muscle spasm) Qty: 90 2RF tizanidine 4 mg tablet 8 mg .hs nystatin 100,000 unit/gram cream TOPICAL mupirocin 2 % ointment TOPICAL tramadol 50 mg tablet rizatriptan [Maxalt] 10 mg tablet See Rx Instructions .ROUTE .COMPLEX Rx Instructions: take 1 tab at onset of headache; if no relief may repeat 1 tab after at least 2 hrs; max = 3 tabs/24 hr albuterol sulfate [Proventil HFA] 90 mcg/actuation HFA aerosol inhaler 2 inh inhalation QID PRN (Reason: shortness of breath or wheezing) fluticasone propionate [24 Hour Allergy Relief] 50 mcg/actuation spray,suspension 1 spray intranasal DAILY PRN (Reason: allergy symptoms) Rx Instructions: administer into each nostril albuterol sulfate 0.63 mg/3 mL solution for nebulization 0.63 mg inhalation TID PRN (Reason: bronchospasm) biotin injectioin .every other week invizia ferrous sulfate [FeroSul] 325 mg (65 mg iron) tablet Print Language: [place] Instructions: Kidney Stones (ED) Referrals: Myerholtz,Loreto Manjula, [facility] [Primary Care Provider] - 1 week
[2024-01-08] MEDS: KETOROLAC TROMETHAMINE 30 MG/ML VIAL IVP (04:25)
[2024-01-08] MEDS: ONDANSETRON PF 4 MG/2 ML VIAL IV (04:25)
[2024-01-08 04:37] LABS: Basophils Percent Auto 0.4 % (0.2-2.0); Eosinophils Absolute Auto 0.2 10^3/uL (0.0-0.7); Eosinophils Percent Auto 2.1 % (0.9-7.0); Hematocrit 38.7 % (36.0-48.0); Hemoglobin 12.5 g/dL (12.0-16.0); Immature Granulocytes Abs Auto 0.04 10^3/uL (0.00-0.03); Immature Granulocytes Pct Auto 0.4 % (0.0-0.5); Lymphocytes Absolute Auto 3.3 10^3/uL (1.2-3.8); Lymphocytes Percent Auto 34.1 % (20.5-60.0); Mean Corpuscular HGB Conc 32.3 g/dL (29.9-35.2); Mean Corpuscular Hemoglobin 28.4 pg (26.7-34.0); Mean Platelet Volume 10.2 fL (9.5-13.5); Monocytes Absolute Auto 0.7 10^3/uL (0.3-0.8); Neutrophils Absolute Auto 5.5 10^3/uL (1.4-6.5); Platelet Count 330 10^3/uL (150-450); Red Cell Distribution Width 13.6 % (11.0-15.0); White Blood Count 9.7 10^3/uL (4.0-11.0)
[2024-01-08 04:51] LABS: Alanine Aminotransferase 46 U/L (14-59); Albumin Globulin Ratio 0.9; Albumin Level 3.3 g/dL (3.4-5.0); Alkaline Phosphatase 98 U/L (46-116); Anion Gap 15.3; Aspartate Amino Transferase 30 U/L (15-37); BUN Creatinine Ratio 24.7; Bilirubin Total 0.3 mg/dL (0.2-1.0); Carbon Dioxide 24.4 mmol/L (21.0-32.0); Chloride 104 mmol/L (98-107); Estimated GFR (African America >60 (>=60 mL/min/1.73m^2); Estimated GFR (Non-African Ame >60 (>=60 mL/min/1.73m^2); Globulin 3.7 g/dL; Glucose 119 mg/dL (74-106); Potassium 3.7 mmol/L (3.5-5.1); Sodium 140 mmol/L (136-145)
--- OUTSIDE RECORDS SUMMARY | 2024-01-08 04:58 | XMS_ITS | CCD ---
Author Organization [facility] CliniSymd Care Team Providers Care Thread Winder Automatic Name Role Phone Juan Ramon Jean Unavailable Unavailable WisilvestreJuan Ramon chase Unavailable Unavailable DOMENICA OLIVA Unavailable Unavailable Rumschlag [...] Primary Care Unavailable Myrtle Cerna Attending Unavailable DEEPIKA ROBLEDO Attending Unavailable JORGE, CARMEN Referring Unavailable RUMSCHLAG, SHAWNA K Primary Care Unavailable DWAYNE KHOURY Attending Unavail able RUMSCHLAG, SHAWNA K Referring Unavailable SERVICES, [facility] Primary Care Unava ilable Fredis PIERCER OPERATOR - SENIOR APPLICATIONS ANALYST, Loreto Primary Care [facility] ider Bk DALE, Ugo Stoddard Attending Unavailable [...] Primary Care Unavailable RUMSCHLAG, SHAWNA Referring Unavailable SERVICES, [facility] Primary Care Unava ilable SHAMMO, RORY Referring Unavailable RUMSCHLAG, SHAWNA K Primary Care Unavailable SHAMMO, RORY Referring Unavailable RUMSCHLAG, SHAWNA K Primary Care Unavailable PETE SILVER Attending Unavailable PETE SILVER Referring Unavailable RUMSCHLAG, SHAWNA K Primary Care Unavailable PETE SILVER Admitting Unavailable PETE SILVER Attending Unavailable RUMSCHLAG, SHAWNA K Referring Unavailable RUMSCHLAG, SHAWNA K Primary Care Unavailable JORGE, CARMEN Referring Unavailable SERVICES, [facility] Primary Care Unava ilable GAURAV SELLERS Attending Unavailable RUMSCHLAG, SHAWNA K Referring Unavailable RUMSCHLAG, SHAWNA K Primary Care Unavailable Allergies Allergy Classification Reported Allergen(s) Allergy Type Date of Onset Reaction(s) Facility Cephalosporins (antibiotic) (2 sources) Cephalexin Drug Allergy 7 Hives [facility] Serotonin Reuptake Inhibitors (SSRIs) (2 sources) [facility] (20 sources) cephalexin; Translations: [Keflex] Drug Allergy 3 hives [facility] (4 sources) citalopram; Translations: [CeleXA] Drug Allergy 3 AOF, heart palpitation [facility] (20 sources) Cephalexin; Translations: [CEPHALEXIN] Drug Allergy 7 Hives [facility] Work Phone: (20 sources) Citalopram; Translations: [CITALOPRAM] Drug Allergy 7 Hives, anaphylaxis [facility] (5 sources) metFORMIN Drug Allergy Unknown [employer] Other (20 sources) metFORMIN; Translations: [METFORMIN] Drug Allergy 3 Unknown, Unknown Reaction [facility] (10 sources) POISON DEVORAH EXTRACT; Translations: [POISON DEVORAH EXTRACT] Drug Allergy 3 [facility] (10 sources) Metformin And Related Propensity to adverse reactions to drug 4 Other (See Comments) [facility] ([facility]) Cephalexin Drug Allergy [facility] (1 source) Citalopram Drug Allergy 4 [facility] (1 source) metFORMIN Drug Allergy 4 [facility] Medications Current Medications Medication Drug Class(es) Dates Sig (Normalized) Sig (Original) [id number] 200 actuat albuterol 0.09 mg/actuat metered dose [...] Orally Once a day Active bifidobacterium animalis [id number] unt / lactobacillus acidophilus [id number] unt oral capsule (2 sources) take 1 capsule by mouth once daily [...] 19 blood-glucose meter (TRUE METRIX GLUCOSE METER) [facility] use to test BLOOD SUGAR TWICE DAILY 1 each 0 06/17/2018 Active cetirizine hydrochloride 10 mg oral tablet (16 sources) Histamine-1 Receptor Antagonist Start: 02-06-20 take 1 tablet by mouth once daily cetirizine (ZyrTEC) 10 mg tablet TAKE 1 TABLET BY MOUTH DAILY 30 tablet 5 02/06/2020 Active cholecalciferol 0.05 mg oral capsule (18 sources) Vitamin D Start: 05-21-19 24 take 2000 [IU] by mouth once daily Cholecalciferol (Vitamin D3) Active 2000 UNIT PO Daily May 21, 2023 12:00am Start: 04-09-2021 take 1 capsule by [facility] in the morning cholecalciferol, vitamin D3, 2,000 units capsule Take 1 capsule (2,000 Units total) by mouth in the morning. 0 04/09/2021 Active take 1 capsule by [facility] every twenty-four hours Vitamin D3 [...] mg docusate sodium 100 mg oral capsule (13 sources) Start: 01-07-2023 take 3 capsules by [...] WEEKLY Active DULoxetine 30 mg oral tablet (9 sources) Serotonin and Norepinephrine Reuptake Inhibitor Start: [...] / neomycin 3.5 mg/ml / polymyxin b 22327 unt/ml otic solution (1 source) Aminoglycoside Antibacterial, Polymyxin-class Antibacterial, Corticosteroid Start: 10-22-2021 End: 10-29-2021 vhqlqasv-xijlubltf-tgpzmvywb isone (CORTISPORIN) 3.5-29920-[address] 4 drops into the left ear 3 times daily for 7 days Instill into left Ear TID x 7 days 10 mL 0 10/22/2021 10/29/2021 Active hydrOXYzine hydrochloride 25 mg oral tablet (14 sources) Antihistamine Start: 10-21-2017 take 1 tablet [...] 2023 12:00am linaclotide 0.29 mg oral capsule (3 sources) Guanylate Cyclase-C Agonist Start: 05-21-2023 take 1 capsule by mouth once daily in the morning Linaclotide (Linzess) 290 mcg capsule Active 290 MCG PO Every morning 30 30 May 21, 2023 12:00am 3 ml liraglutide 6 mg/ml pen injector (3 sources) GLP-1 Receptor Agonist Start: 05-21-2023 Liraglutide [...] 2023 12:00am meloxicam 15 mg oral tablet (20 sources) Nonsteroidal Anti-inflammatory Drug Start: 05-21-2023 take 30 mg by mouth once daily Meloxicam Active 30 MG PO Daily May 21, 2023 12:00am take 1 tablet by mouth once adele y meloxicam (MOBIC) 15 MG tablet Take 1 tablet by mouth daily Active 10 ml methocarbamol 100 mg/ml injection (15 sources) Muscle Relaxant Start: 10-14-2018 Robaxin 100 [...] MOUTH NIGHTLY 30 tablet 0 07/16/2020 Active nazkydbt-dvjc-UW-ca lcium &mins (THERAGRAN-M) 9 mg iron-400 mcg tablet (7 sources) exzytsvx-ejqj-TR -c alcium &mins (THERAGRAN-M) 9 mg iron-400 [...] omeprazole 20 mg delayed release oral capsule (14 sources) Proton Pump Inhibitor take 2 capsules [...] 30 days Jan, Active polyethylene glycol 3350 093251 mg / potassium chloride 2970 mg / sodium bicarbonate 6740 mg / sodium chloride 5860 mg / sodium sulfate 99330 mg powder for oral solution (2 sources) [...] Nausea, # 20 tab(s), Refills(s) 0, Pharmacy: [facility], 157, cm, 03/10/19 12:21:00 EST, Height/Length [...] day Active temazepam 15 mg oral capsule (14 sources) Benzodiazepine take 1 capsule by mouth [...] Status: Ordered take 2 tablets by mo [facility] every six hours as needed tiZANidine (ZANAFLEX) 4 MG tablet Take 2 tablets by mouth every 6 hours as needed Active take 2 tablets by mo [facility] every twenty-four hours tiZANidine HCl 4 MG 2 tablet Orally daily Active take 1 tablet by elan every twelve hours tiZANidine HCl 4 MG 1 tablet Orally TWICE A DAY Active topiramate 200 mg oral tablet (14 sources) take 1 tablet by mouth once [...] D Active zonisamide 100 mg oral capsule (14 sources) Anti-epileptic Agent take 1 capsule by mouth once daily zonisamide (ZONEGRAN) 100 MG capsule Take 100 mg by mouth daily Active Completed/Discontinued Medications Medication Drug Class(es) Dates Sig (Normalized) Sig (Original) ascorbic acid 500 mg oral tablet (15 sources) Vitamin C Start: 05-20-2023 End: 05-21-2023 [...] May 21, 2023 11:36am polyethylene glycol 3350 48581 mg powder for oral solution (7 sources) [...] sources) Personal history of urinary calculi Episodic Deficiency and other anemia (1 source) Anemia, unspecified; Translations: [Anemia, unspecified] Onset: 12-21-2023 Episodic Deficiency and other anemia (1 source) Iron deficiency anemia, unspecified; Translations: [Iron deficiency anemia, unspecified] Onset: 12-21-2023 Episodic Diabetes mellitus with complications (20 sources) [...] bowel syndrome] 05-21-2023 Chronic Other gastrointestinal disorders (1 source) Intestinal malabsorption, unspecified; Translations: [Intestinal malabsorption, unspecified] Onset: 12-21-2023 Chronic Other gastrointestinal disorders (10 sources) Constipation; [...] unspecified; Translations: [Pain, unspecified] Onset: 06-03-2023 Episodic Residual codes; unclassified (1 source) Genetic susceptibility to other malignant neoplasm; Translations: [Genetic susceptibility to other malignant neoplasm] Onset: 12-21-2023 Episodic Screening and history of mental health [...] Translations: [ABNORMAL LEVELS OTHER SERUM ENZYMES] Onset: 12-19-2022 Episodic Other non-traumatic joint disorders (4 sources) [...] Test Name Value Interpretation Reference Range Facility BASIC METABOLIC PANLon 12-20 Anion gap [Moles/Vol] 10 mmol/L Normal 5-15 [facility] Comment on above: Performed By: #### C BCA, BMP, FEPR, 2276-4 #### [facility] ([id number]) [address], [address] [place] [address] Calcium [Mass/Vol] 8.9 mg/dL Normal 8.5-10.5 [facility] Comment on above: Performed By: #### C BCA, BMP, FEPR, 2276-4 #### [facility] ([id number]) [address], [address] [place] [address] Chloride [Moles/Vol] 106 mmol/L Normal 98-109 [facility] Comment on above: Performed By: #### C BCA, BMP, FEPR, 2276-4 #### [facility] ([id number]) [address] [place] [address] CO2 [Moles/Vol] 22 mmol/L Normal 22-32 [facility] Comment on above: Performed By: #### C BCA, BMP, FEPR, 2276-4 #### [facility] ([id number]) [address] [place] [address] Creatinine [Mass/Vol] 0.70 mg/dL Normal 0.40-1.00 [facility] Comment on above: Result Comment: METH OD TRACEABLE TO IDMS STANDARD Performed By: #### C BCA, BMP, FEPR, 6-4 #### [facility] ([id number]) [address], [address] [place] [address] eGFR (CKD-EPI) NON-RACE DEPENDENT >90 Normal >59 [facility] Comment on above: Result Comment: Reported eGFR is based on the CKD-EPI 2020 equation that does not use a race coefficient. Performed By: #### C BCA, BMP, FEPR, 2275-4 #### [facility] ([id number]) [address] [place] [address] Glucose [Mass/Vol] 89 mg/dL Normal 65-99 [facility] Comment on above: Performed By: #### C BCA, BMP, FEPR, 2275-4 #### [facility] ([id number]) [address] [address] [place] [address] Potassium [Moles/Vol] 4.2 mmol/L Normal 3.5-5.0 [facility] Comment on above: Performed By: #### C BCA, BMP, FEPR, 2275-4 #### [facility] ([id number]) [address] [place] [address] Sodium [Moles/Vol] 138 mmol/L Normal 134-146 [facility] Comment on above: Performed By: #### C BCA, BMP, FEPR, 2275-4 #### [facility] ([id number]) [address] [place] [address] Urea nitrogen [Mass/Vol] 18 mg/dL Normal 5-23 [facility] Comment on above: Performed By: #### C BCA, BMP, FEPR, 6-4 #### [facility] ([id number]) [address], [address] [place] [address] CBC AND AUTO DIFFon 10-21-20 24 ABSOLUTE BASOPHIL 0.0 X10E9/L Normal 0.0-0.2 [facility] Comment on above: Performed By: #### C BCA, BMP, FEPR, 2275-4 #### [facility] ([id number]) [address], [address] [place] [address] ABSOLUTE NEUTROPHIL 5.7 X10E9/L Normal 1.5-6.6 [facility] Comment on above: Performed By: #### C BCA, BMP, FEPR, 2275-4 #### [facility] ([id number]) [address], [address] [place] [address] Basophils/100 WBC (Bld) 0.4 % Normal [facility] Comment on above: Performed By: #### C BCA, BMP, FEPR, 2275-4 #### [facility] ([id number]) [address], [address] [place] [address] Eosinophils (Bld) [#/Vol] 0.1 10*3/uL Normal 0.0-0.4 [facility] Comment on above: Performed By: #### C BCA, BMP, FEPR, 2275-4 #### [facility] ([id number]) [address], [address] [place] [address] Eosinophils/100 WBC (Bld) 1.2 % Normal [facility] Comment on above: Performed By: #### C BCA, BMP, FEPR, 2275-4 #### [facility] ([id number]) [address], [address] [place] [address] Erythrocyte distribution width (RBC) [Ratio] 14.4 % Normal 11.5-15.0 [facility] Comment on above: Performed By: #### C BCA, BMP, FEPR, 2275-4 #### [facility] ([id number]) [address] [address] [place] [address] Hematocrit (Bld) [Volume fraction] 37.4 % Normal 35-47 [facility] Comment on above: Performed By: #### C BCA, BMP, FEPR, 2275-4 #### [facility] ([id number]) [address] [address] [place] [address] Hemoglobin (Bld) [Mass/Vol] 12.4 g/dL Normal 11.7-15.5 [facility] Comment on above: Performed By: #### C BCA, BMP, FEPR, 2275-4 #### [facility] ([id number]) [address] [address] [place] [address] Lymphocytes (Bld) [#/Vol] 2.4 10*3/uL Normal 1.0-3.5 [facility] Comment on above: Performed By: #### C BCA, BMP, FEPR, 2275-4 #### [facility] ([id number]) [address] [address] [place] [address] Lymphocytes/100 WBC (Bld) 28.1 % Normal [facility] Comment on above: Performed By: #### C BCA, BMP, FEPR, 2275-4 #### [facility] ([id number]) [address] [address] [place] [address] MCH (RBC) [Entitic mass] 28.8 pg Normal 27-34 [facility] Comment on above: Performed By: #### C BCA, BMP, FEPR, 2275-4 #### [facility] ([id number]) [address] [address] [place] [address] MCHC (RBC) [Mass/Vol] 33.1 g/dL Normal 32-36 [facility] Comment on above: Performed By: #### C BCA, BMP, FEPR, 2275-4 #### [facility] ([id number]) [address], [facility] [address] [place] [address] MCV (RBC) [Entitic vol] 87 fL Normal 80-100 [facility] Comment on above: Performed By: #### C BCA, BMP, FEPR, 2275-4 #### [facility] ([id number]) [address], [facility] [address] [place] [address] Monocytes (Bld) [#/Vol] 0.3 10*3/uL Normal 0-0.9 [facility] Comment on above: Performed By: #### C BCA, BMP, FEPR, 2275-4 #### [facility] ([id number]) [address] [address] [place] [address] Monocytes/100 WBC (Bld) 3.0 % Normal [facility] Comment on above: Performed By: #### C BCA, BMP, FEPR, 2275- #### [facility] ([id number]) [address], [facility] [address] [place] [address] Neutrophils/100 WBC (Bld) 67.3 % Normal [facility] Comment on above: Performed By: #### C BCA, BMP, FEPR, 2275- #### [facility] ([id number]) [address], [facility] [address] [place] [address] Platelet mean volume (Bld) [Entitic vol] 8.8 fL Normal 7-12 [facility] Comment on above: Performed By: #### C BCA, BMP, FEPR, 2275- #### [facility] ([id number]) [address] [address] [place] [address] Platelets (Bld) [#/Vol] 325 10*3/uL Normal 150-450 [facility] Comment on above: Performed By: #### C BCA, BMP, FEPR, 6-4 #### [facility] ([id number]) [address] [address] [place] [address] RBC COUNT 4.31 X10E12/L Normal 3.80-5.20 [facility] Comment on above: Performed By: #### C BCA, BMP, FEPR, 2275-4 #### [facility] ([id number]) [address] [address] WBC (Bld) [#/Vol] 8.4 10*3/uL Normal 4.0-11.0 [facility] Comment on above: Performed By: #### C BCA, BMP, FEPR, 4 #### [facility] ([id number]) [address] [address] [place] [address] FERRITINon 12-21-2023 Ferritin [Mass/Vol] 195 ng/mL Normal 11-307 [facility] Comment on above: Performed By: #### C BCA, CMP, 96789-6, TSHR #### [facility] ([id number]) [address] [address] [place] [address] IRON PROFILEon 12-21-2023 Iron [Mass/Vol] 53 ug/dL Normal 50-170 [facility] Comment on above: Performed By: #### C BCA, BMP, FEPR, 2275-4 #### [facility] ([id number]) [address] [address] [place] [address] IRON BINDING 374 ug/dL Normal 250-425 [facility] Comment on above: Performed By: #### C BCA, BMP, FEPR, 2275-4 #### [facility] ([id number]) [address] [address] [place] [address] IRON SATURATION 14 % SATURATION Low 15-50 [facility] Comment on above: Performed By: #### C BCA, BMP, FEPR, 6-4 #### [facility] ([id number]) [address] [place] [address] CT ABDOMEN PELVIS W IV CONTR Dar [...] significant stool or gas noted. Evidence of gbcu-fp-taxxclct diverticulosis of proximal sigmoid colon and descending [...] Zoë Nicole MD 10/07/23 Final result Normal [facility] Comp Metabolic Profon 2023 Albumin [Mass/Vol] 4.1 g/dL Normal 3.5-5.[address] [facility] Comment on above: Performed By: #### C ACOSTA Schulz TROPI, CDP ####[facility] [place] , [place] [id number] lab Director: Domenica Velázquez MD Albumin/Glob Ratio 1.4 Normal 1.0-2.[address] [facility] Comment on above: Performed By: #### ACOSTA Virgen TROPI, CDP ####[facility] [place] [address] lab Director: Domenica Velázquez MD Alkaline Phos 85 U/L Normal 35-104 [facility] Comment on above: Performed By: #### C ACOSTA Schulz TROPI, CDP ####[address] , [place] [address] Lab Director: Domenica Velázquez MD ALT [Catalytic activity/Vol] 12 U/L Normal 5-[address] [facility] Comment on above: Performed By: #### C P, LIP, TROPI, CDP ####[address] , [place] [address] Lab Director: Domenica Velázquez MD Anion gap [Moles/Vol] 11 mmol/L Normal 9-[address] [facility] Comment on above: Performed By: #### C P, LIP, TROPI, CDP ####[address] , [place] [address] lab Director: Domenica Velázquez MD AST [Catalytic activity/Vol] 14 U/L Normal <[address] [facility] Comment on above: Performed By: #### C P, LIP, TROPI, CDP ####[address] , [place] [address] Lab Director: Domenica Velázquez MD Bilirubin [Mass/Vol] 0.2 mg/dL Low 0.3-1.2 [facility] Comment on above: Performed By: #### C P, LIP, TROPI, CDP ####[address] [place] [address] Lab Director: Domenica Velázquez MD BUN/CRE Ratio 30 High 9-20 [facility] Comment on above: Performed By: #### C P, LIP, TROPI, CDP ####[address] , [place] [address] Lab Director: Domenica Velázquez MD Calcium [Mass/Vol] 8.8 mg/dL Normal 8.6-10.[address] [facility] Comment on above: Performed By: #### C P, LIP, TROPI, CDP ####[address] , [place] 0433[address] Lab Director: Domenica Velázquez MD Chloride [Moles/Vol] 103 mmol/L Normal 98-107 [facility] Comment on above: Performed By: #### C P, LIP, TROPI, CDP ####[address] , [place] [address] lab Director: Domenica Velázquez MD CO2 [Moles/Vol] 25 mmol/L Normal 20-31 [facility] Comment on above: Performed By: #### C P, LIP, TROPI, CDP ####[address] , [place] [address] lab Director: Domenica Velázquez MD Creatinine [Mass/Vol] 0.6 mg/dL Normal 0.5-0.[address] [facility] Comment on above: Performed By: #### C P, LIP, TROPI, CDP ####[address] , [place] 24[address] lab Director: Domenica Velázquez MD GFR/1.73 sq M.predicted among non-blacks MDRD (S/P/Bld) [Vol rate/Area] mL/min/{1.73_m2} Normal >[address] [facility] Comment on above: Result Comment: [...] By: #### C P, LIP, TROPI, CDP ####[address] , [place] [address] lab Director: Domenica Velázquez MD Glucose [Mass/Vol] 92 mg/dL Normal 70-[address] [facility] Comment on above: Performed By: #### C P, LIP, TROPI, CDP ####[address] , [place] [address] Lab Director: Domenica Velázquez MD Potassium [Moles/Vol] 3.6 mmol/L Low 3.7-5.[address] [facility] Comment on above: Performed By: #### C P, LIP, TROPI, CDP ####[address] , [place] [address] Lab Director: Domenica Velázquez MD Protein [Mass/Vol] 7.0 g/dL Normal 6.4-8.[address] [facility] Comment on above: Performed By: #### C P, LIP, TROPI, CDP ####[address] , [place] 97[address] Lab Director: Domenica Velázquez MD Sodium [Moles/Vol] 139 mmol/L Normal 135-[address] [facility] Comment on above: Performed By: #### C P, LIP, TROPI, CDP ####[address] , [place] [address] Lab Director: Domenica Velázquez MD Urea nitrogen [Mass/Vol] 18 mg/dL Normal 6-[address] [facility] Comment on above: Performed By: #### C P, LIP, TROPI, CDP ####[address] [place] [address] Lab Director: Domenica Velázquez MD Lipaseon 10-07-2023 Lipase [Catalytic activity/Vol] 28 U/L Normal 13-[address] [facility] Comment on above: Performed By: #### C P, LIP, TROPI, CDP ####[address] [place] [address] Lab Director: Domenica Velázquez MD Troponinon 10-07-2023 Troponin, High Sens <6 Normal 0-[address] [facility] Comment on above: Result Comment: High Sensitivity Troponin values cannot be compared with other Troponin methodologies. Performed By: #### C P, LIP, TROPI, CDP ####[address] [place] [address] Lab Director: Domenica Velázquez MD CBC with Diffon 10-06-2023 Abs. Basophil 0.03 k/uL Normal 0.00-0.20 [facility] Comment on above: Performed By: #### C P, LIP, TROPI, CDP ####[address] , [place] [address])[phone] Director: Domenica Velázquez MD Abs.Imm.Granulocyte 0.03 k/uL Normal 0.00-0.[address] [facility] Comment on above: Performed By: #### C P, LIP, TROPI, CDP ####[address] [place] [id number])[phone] Director: Domenica Velázquez MD Abs.Neutrophil (Seg) 6.50 k/uL Normal 1.50-8.10 [facility] Comment on above: Performed By: #### C P, LIP, TROPI, CDP ####[address] , [place] [address])[phone] Director: Domenica Velázquez MD Basophils/100 WBC (Bld) 0 % Normal 0-[address] [facility] Comment on above: Performed By: #### C P, LIP, TROPI, CDP ####[address] , [place] [address])[phone] Director: Domenica Velázquez MD Eosinophils (Bld) [#/Vol] 0.08 10*3/uL Normal 0.00-0.[address] [facility] Comment on above: Performed By: #### C P, LIP, TROPI, CDP ####[address] , [facility]83[facility])[phone] Director: Domenica Velázquez MD Eosinophils/100 WBC (Bld) 1 % Normal 1-[address] [facility] Comment on above: Performed By: #### C P, LIP, TROPI, CDP ####[address] , [place] [address] Lab Director: Domenica Velázquez MD Erythrocyte distribution width (RBC) [Ratio] 13.5 % Normal 11.8-14.[address] [facility] Comment on above: Performed By: #### C P, LIP, TROPI, CDP ####[address] , [facility]83[facility])[phone] Director: Domenica Velázquez MD Hematocrit (Bld) [Volume fraction] 40.1 % Normal 36.3-47.[address] [facility] Comment on above: Performed By: #### C P, LIP, TROPI, CDP ####[address] , [facility]83[facility])[phone] Director: Domenica Velázquez MD Hemoglobin (Bld) [Mass/Vol] 13.4 g/dL Normal 11.9-15.[address] [facility] Comment on above: Performed By: #### C P, LIP, TROPI, CDP ####[address] , [place] [address])[phone] Director: Domenica Velázquez MD Immature granulocytes/100 WBC (Bld) 0 % Normal [address] [facility] Comment on above: Performed By: #### C P, LIP, TROPI, CDP ####[address] , [place] [address])[phone] Director: Domenica Velázquez MD Lymphocytes (Bld) [#/Vol] 2.41 10*3/uL Normal 1.10-3.[address] [facility] Comment on above: Performed By: #### C P, LIP, TROPI, CDP ####[address] , [facility]83 Lab Director: Domenica Velázquez MD Lymphocytes/100 WBC (Bld) 25 % Normal 24-[address] [facility] Comment on above: Performed By: #### C P, LIP, TROPI, CDP ####[address] , [facility]78([facility])[phone] Director: Domenica Velázquez MD MCH (RBC) [Entitic mass] 28.6 pg Normal 25.2-33.[address] [facility] Comment on above: Performed By: #### C P, LIP, TROPI, CDP ####[address] , [facility]33([facility])[phone] Director: Domenica Velázquez MD MCHC (RBC) [Mass/Vol] 33.4 g/dL Normal 28.4-34.[address] [facility] Comment on above: Performed By: #### C P, LIP, TROPI, CDP ####[address] , [facility]21([facility])[phone] Director: Domenica Velázquez MD MCV (RBC) [Entitic vol] 85.7 fL Normal 82.6-102.[address] [facility] Comment on above: Performed By: #### C P, LIP, TROPI, CDP ####[address] , [facility]76([facility])[phone] Director: Domenica Velázquez MD Monocytes (Bld) [#/Vol] 0.69 10*3/uL Normal 0.10-1.[address] [facility] Comment on above: Performed By: #### C P, LIP, TROPI, CDP ####[address] [place] [address] Lab Director: Domenica Velázquez MD Monocytes/100 WBC (Bld) 7 % Normal 3-[address] [facility] Comment on above: Performed By: #### C P, LIP, TROPI, CDP ####[address] , [place] [phone] Lab Director: Domenica Velázquez MD Neutrophil (Seg) 67 % High 36-65 [facility] Comment on above: Performed By: #### C P, LIP, TROPI, CDP ####[address] , [place] [phone] Lab Director: Domenica Velázquez MD NRBC Automated 0.0 per 100 WBC Normal 0.[address] [facility] Comment on above: Performed By: #### C P, LIP, TROPI, CDP ####[address] , [place] [phone] Director: Domenica Velázquez MD Platelet mean volume (Bld) [Entitic vol] 10.5 fL Normal 8.1-13.[address] [facility] Comment on above: Performed By: #### C P, LIP, TROPI, CDP ####[address] , [facility]83[facility])[phone] Director: Domenica Velázquez MD Platelets (Bld) [#/Vol] 292 10*3/uL Normal 138-[address] [facility] Comment on above: Performed By: #### C P, LIP, TROPI, CDP ####[address] , [place] [phone] Director: Domenica Velázquez MD RBC (Bld) [#/Vol] 4.68 10*6/uL Normal 3.95-5.[address] [facility] Comment on above: Performed By: #### C P, LIP, TROPI, CDP ####[address] , [place] [address])[phone] Director: Domenica Velázquez MD WBC (Bld) [#/Vol] 9.7 10*3/uL Normal 3.5-11.[address] [facility] Comment on above: Performed By: #### C P, LIP, TROPI, CDP ####[address] [place] [address] Lab Director: Domenica Velázquez MD Basic Metabolic Profon 10-04 Anion gap [Moles/Vol] 10 mmol/L Normal 9-[address] [facility] Comment on above: Performed By: #### C DP, BMP, TROPI, DIME #### [facility] [address] [place], [place] [address] Clerical Assistant: Domenica Velázquez MD BUN/CRE Ratio 23 High 9-20 [facility] Comment on above: Performed By: #### C DP, BMP, TROPI, DIME #### [facility] [address] [place], [place] [phone] Clerical Assistant: Domenica Velázquez MD Calcium [Mass/Vol] 8.9 mg/dL Normal 8.6-10.[address] [facility] Comment on above: Performed By: #### C DP, BMP, TROPI, DIME #### [facility] [address] [place], [place] [id number] Clerical Assistant: Domenica Velázquez MD Chloride [Moles/Vol] 105 mmol/L Normal 98-107 [facility] Comment on above: Performed By: #### C DP, BMP, TROPI, DIME #### [address] [place], [place] 1429783 Clerical Assistant: Domenica Velázquez MD CO2 [Moles/Vol] 26 mmol/L Normal 20-31 [facility] Comment on above: Performed By: #### C DP, BMP, TROPI, DIME #### [facility] [address] [place], [place] [phone] Clerical Assistant: Domenica Velázquez MD Creatinine [Mass/Vol] 0.6 mg/dL Normal 0.5-0.[address] [facility] Comment on above: Performed By: #### C DP, BMP, TROPI, DIME #### [facility] [address] [place], [place] [phone] Clerical Assistant: Domenica Velázquez MD GFR/1.73 sq M.predicted among non-blacks MDRD (S/P/Bld) [Vol rate/Area] mL/min/{1.73_m2} Normal >[address] [facility] Comment on above: Result Comment: [...] tubular secretion. Performed By: #### C DP, BMP, TROPI, DIME #### [facility] [address] [place] [address] [place] [address] Clerical Assistant: Domenica Velázquez MD Glucose [Mass/Vol] 96 mg/dL Normal 70-[address] [facility] Comment on above: Performed By: #### C DP, BMP, TROPI, DIME #### [address] [place], [place] 870[address]83 Clerical Assistant: Domenica Velázquez MD Potassium [Moles/Vol] 3.8 mmol/L Normal 3.7-5.[address] [facility] Comment on above: Performed By: #### C DP, BMP, TROPI, DIME #### [address] [place], [place] 45[address]83 Clerical Assistant: Domenica Velázquez MD Sodium [Moles/Vol] 141 mmol/L Normal 135-[address] [facility] Comment on above: Performed By: #### C DP, BMP, TROPI, DIME #### [facility] [address] [place] [address] [place] [address] Clerical Assistant: Domenica Velázquez MD Urea nitrogen [Mass/Vol] 14 mg/dL Normal 6-[address] [facility] Comment on above: Performed By: #### C DP, BMP, TROPI, DIME #### [address] [place], [place] [phone] Clerical Assistant: Domenica Velázquez MD CBC with Diffon 10-05-2023 Abs. Basophil <0.03 Normal 0.00-0.20 [facility] Comment on above: Performed By: #### C DP, BMP, TROPI, DIME #### [facility] [address] [place] [address] Clerical Assistant: Domenica Velázquez MD Abs.Imm.Granulocyte 0.03 k/uL Normal 0.00-0.[address] [facility] Comment on above: Performed By: #### C DP, BMP, TROPI, DIME #### [facility] [address] [place] [address] Clerical Assistant: Domenica Velázquez MD Abs.Neutrophil (Seg) 5.10 k/uL Normal 1.50-8.10 [facility] Comment on above: Performed By: #### C DP, BMP, TROPI, DIME #### [facility] [address] [place] [address] Dr[address] [place], [place] [address] Clerical Assistant: Domenica Velázquez MD Basophils/100 WBC (Bld) 0 % Normal 0-[address] [facility] Comment on above: Performed By: #### C DP, BMP, TROPI, DIME #### [address] [place] [address] Clerical Assistant: Domenica Velázquez MD Eosinophils (Bld) [#/Vol] 0.11 10*3/uL Normal 0.00-0.[address] [facility] Comment on above: Performed By: #### C DP, BMP, TROPI, DIME #### [facility] [address] [place] [address] Clerical Assistant: Domenica Velázquez MD Eosinophils/100 WBC (Bld) 1 % Normal 1-[address] [facility] Comment on above: Performed By: #### C DP, BMP, TROPI, DIME #### [address] [place] [address] Clerical Assistant: Domenica Velázquez MD Erythrocyte distribution width (RBC) [Ratio] 13.5 % Normal 11.8-14.[address] [facility] Comment on above: Performed By: #### C DP, BMP, TROPI, DIME #### [address] [place] [id number] Clerical Assistant: Domenica Velázquez MD Hematocrit (Bld) [Volume fraction] 42.6 % Normal 36.3-47.[address] [facility] Comment on above: Performed By: #### C DP, BMP, TROPI, DIME #### [address] [place] [address] Clerical Assistant: Domenica Velázquez MD Hemoglobin (Bld) [Mass/Vol] 14.1 g/dL Normal 11.9-15.[address] [facility] Comment on above: Performed By: #### C DP, BMP, TROPI, DIME #### [address] [place] [address] Clerical Assistant: Domenica Velázquez MD Immature granulocytes/100 WBC (Bld) 0 % Normal [address] [facility] Comment on above: Performed By: #### C DP, BMP, TROPI, DIME #### [address] [place] [address] Clerical Assistant: Domenica Velázquez MD Lymphocytes (Bld) [#/Vol] 2.42 10*3/uL Normal 1.10-3.[address] [facility] Comment on above: Performed By: #### C DP, BMP, TROPI, DIME #### [address] [place] [address] Clerical Assistant: Domenica Velázquez MD Lymphocytes/100 WBC (Bld) 30 % Normal 24-[address] [facility] Comment on above: Performed By: #### C DP, BMP, TROPI, DIME #### [address] [place] [phone] Clerical Assistant: Domenica Velázquez MD MCH (RBC) [Entitic mass] 28.8 pg Normal 25.2-33.[address] [facility] Comment on above: Performed By: #### C DP, BMP, TROPI, DIME #### [address] [place], [facility]83 Clerical Assistant: Domenica Velázquez MD MCHC (RBC) [Mass/Vol] 33.1 g/dL Normal 28.4-34.[address] [facility] Comment on above: Performed By: #### C DP, BMP, TROPI, DIME #### [address] [place] [address] Clerical Assistant: Domenica Velázquez MD MCV (RBC) [Entitic vol] 87.1 fL Normal 82.6-102.[address] [facility] Comment on above: Performed By: #### C DP, BMP, TROPI, DIME #### [address] [place], [facility]83 Clerical Assistant: Domenica Velázquez MD Monocytes (Bld) [#/Vol] 0.53 10*3/uL Normal 0.10-1.[address] [facility] Comment on above: Performed By: #### C DP, BMP, TROPI, DIME #### [address] [place], [facility]83 Clerical Assistant: Domenica Velázquez MD Monocytes/100 WBC (Bld) 7 % Normal 3-[address] [facility] Comment on above: Performed By: #### C DP, BMP, TROPI, DIME #### [address] [place] [address] Clerical Assistant: Domenica Velázquez MD Neutrophil (Seg) 62 % Normal 36-65 [facility] Comment on above: Performed By: #### C DP, BMP, TROPI, DIME #### [facility] [address] [place], [place] [id number] Clerical Assistant: Domenica Velázquez MD NRBC Automated 0.0 per 100 WBC Normal 0.[address] [facility] Comment on above: Performed By: #### C DP, BMP, TROPI, DIME #### [address] [place], [place] [id number] Clerical Assistant: Domenica Velázquez MD Platelet mean volume (Bld) [Entitic vol] 10.9 fL Normal 8.1-13.[address] [facility] Comment on above: Performed By: #### C DP, BMP, TROPI, DIME #### [address] [place], [place] [phone] Clerical Assistant: Domenica Velázquez MD Platelets (Bld) [#/Vol] 296 10*3/uL Normal 138-[address] [facility] Comment on above: Performed By: #### C DP, BMP, TROPI, DIME #### [address] [place], [place] [phone] Clerical Assistant: Domenica Velázquez MD RBC (Bld) [#/Vol] 4.89 10*6/uL Normal 3.95-5.[address] [facility] Comment on above: Performed By: #### C DP, BMP, TROPI, DIME #### [address] [place], [place] [address] Clerical Assistant: Domenica Velázquez MD WBC (Bld) [#/Vol] 8.2 10*3/uL Normal 3.5-11.[address] [facility] Comment on above: Performed By: #### C DP, BMP, TROPI, DIME #### [address] [place], [place] [phone] Clerical Assistant: Domenica Velázquez MD CT CHEST PULMONARY EMBOLISM [...] Fernando Marcelino MD 10/05/23 Final result Normal [facility] D-Dimer Teston 10-05-2023 D-Dimer Test 0.30 ug/mL FEU Normal 0.00-0.59 [facility] Comment on above: Result Comment: When [...] distal DVT. Performed By: #### C DP, SHAWNA, KATHY CABRERA #### [address] [place] [address] Clerical Assistant: Domenica Velázquez MD Liver Profileon 10-05-2023 Albumin [Mass/Vol] 4.4 g/dL Normal 3.5-5.[address] [facility] Comment on above: Performed By: #### L IVP #### [address] [place] [address] Clerical Assistant: Domenica Velázquez MD Albumin/Glob Ratio 1.4 Normal 1.0-2.[address] [facility] Comment on above: Performed By: #### L IVP #### [address] [place] [address] Clerical Assistant: Domenica Velázquez MD Alkaline Phos 99 U/L Normal 35-104 [facility] Comment on above: Performed By: #### L IVP #### [address] [place], [place] [address]83 Clerical Assistant: Domenica Velázquez MD ALT [Catalytic activity/Vol] 13 U/L Normal 5-[address] [facility] Comment on above: Performed By: #### L IVP #### [address] [place] [address] Clerical Assistant: Domenica Velázquez MD AST [Catalytic activity/Vol] 16 U/L Normal <[address] [facility] Comment on above: Performed By: #### L IVP #### [address] [place] [address] Clerical Assistant: Domenica Velázquez MD Bilirubin [Mass/Vol] 0.2 mg/dL Low 0.3-1.2 [facility] Comment on above: Performed By: #### L IVP #### [facility] [address] [place] [address] [place] [address] Clerical Assistant: Domenica Velázquez MD Bilirubin, Indirect Can not be calculated Normal 0.0-1 .[address] [facility] Comment on above: Performed By: #### L IVP #### [facility] [address] [place] [address] [place] [address] Clerical Assistant: Domenica Velázquez MD Bilirubin.indirect [Mass/Vol] mg/dL Normal <0.[address] [facility] Comment on above: Performed By: #### L IVP #### [facility] [address] [place] [address] [place] [address] Clerical Assistant: Domenica Velázquez MD Protein [Mass/Vol] 7.5 g/dL Normal 6.4-8.[address] [facility] Comment on above: Performed By: #### L IVP #### [facility] [address] [place] [address] [place] [address] Clerical Assistant: Domenica Velázquez MD Troponinon 10-05-2023 Troponin, High Sens <6 Normal 0-[address] [facility] Comment on above: Result Comment: High Sensitivity Troponin values cannot be compared with other Troponin methodologies. Performed By: #### T ROPI #### [facility] [address] [place] [address] [place] [address] Clerical Assistant: Domenica Velázquez MD Troponin, High Sens <6 Normal 0-[address] [facility] Comment on above: Result Comment: High Sensitivity Troponin values cannot be compared with other Troponin methodologies. Performed By: #### C DP, BMP, TROPI, DIME #### [facility] [address] [place] [address] [place] [address] Clerical Assistant: Domenica Velázquez MD XR CHEST PORTABLEon 10-05-19 [...] Deyanira Lock MD 10/05/23 Final result Normal [facility] CT CERVICAL SPINE WO CONTRAS [...] Andi Montoya MD 04/20/23 Final result Normal [facility] CT Cervical spine WO contras ton 04-20-2023 Radiology Study observation (narrative) [facility] CT HEAD WO CONTRASTon 2023 CT [...] Andi Montoya MD 04/20/23 Final result Normal [facility] CT Head WO contraston 2023 Radiology Study observation (narrative) [facility] No Panel Informationon 04-[address] abnormal ity identified in the brain. No acute osseous abnormality identified in the cervical spine. [facility] RIS CONSOLIDATED EXAMINATION: CT OF THE [...] There is no prevertebral soft tissue swelling. [facility] RIS Andi Alvarez MD - 04/20/2023 [...] osseous abnormality identified in the cervical spine. [facility] No Panel InformationOrdered By: Andi Montoya on 04-20-2023 [facility] Work Phone: Glucose Glucometer (BldC) [M ass/Vol]on 03-27-2023 Glucose [Mass/Vol] 151 mg/dL High 65-99 [facility] Glucose Poct Glucometerson 0 03-18-2023 Commemt1 Glu2: Cleaned Meter Normal [facility] Comment on above: Result Comment: PERF ORMED BY: [place] [address] PATHOLOGIST PORTAL DEVELOPER SHA VALERA M.D. Performed By: #### G LULS #### Point of Care testing , Glucose [Mass/Vol] 87 mg/dL Normal [facility] Comment on above: Result Comment: [facility] Glucose Reference Range is dependent on time and content of last meal. Glucose of more than 200 mg/dL in a nonstressed, ambulatory subject supports the diagnosis of Diabetes Mellitus. Performed By: #### G LULS #### Point of Care testing , HCG,Urineon 03-18-2023 Beta HCG ( test) Ql (U) Negative Normal [facility] Comment on above: Result Comment: PERF ORMED BY: [place] [address] PATHOLOGIST PORTAL DEVELOPER SHA VALERA M.D. Performed By: #### U HCG #### [address] CBC AND AUTO DIFFon 03-16-19 24 ABSOLUTE BASOPHIL 0.0 X10E9/L Normal 0.0-0.2 [facility] Comment on above: Performed By: #### C BCA, CMP, 87107-8, TSHR #### [facility] ([id number]) [address], [address] [place] [address] ABSOLUTE NEUTROPHIL 7.7 X10E9/L High 1.5-6.6 [facility] Comment on above: Performed By: #### C ADITYA, CMP, 08837-3, TSHR #### [facility] ([id number]) [address], [address] [place] [address] Basophils/100 WBC (Bld) 0.3 % Normal [facility] Comment on above: Performed By: #### C ADITYA, CMP, 82346-4, TSHR #### [facility] ([id number]) [address], [address] [place] [address] Eosinophils (Bld) [#/Vol] 0.1 10*3/uL Normal 0.0-0.4 [facility] Comment on above: Performed By: #### Terrell BURGESS, CMP, 17137-8, TSHR #### [facility] ([id number]) [address], [address] [place] [address] Eosinophils/100 WBC (Bld) 1.1 % Normal [facility] Comment on above: Performed By: #### C BCA, CMP, 54328-7, TSHR #### [facility] ([id number]) [address], [address] [place] [address] Erythrocyte distribution width (RBC) [Ratio] 14.6 % Normal 11.5-15.0 [facility] Comment on above: Performed By: #### C BCA, CMP, 31754-5, TSHR #### [facility] ([id number]) [address], [address] [place] [address] Hematocrit (Bld) [Volume fraction] 45.7 % Normal 35-47 [facility] Comment on above: Performed By: #### C BCA, CMP, 26937-9, TSHR #### [facility] ([id number]) [address], [address] [place] [address] Hemoglobin (Bld) [Mass/Vol] 15.0 g/dL Normal 11.7-15.5 [facility] Comment on above: Performed By: #### C ADITYA CMP, 68783-4, TSHR #### [facility] ([id number]) [address], [facility] [address] [place] [address] Lymphocytes (Bld) [#/Vol] 2.4 10*3/uL Normal 1.0-3.5 [facility] Comment on above: Performed By: #### Terrell BURGESS CMP, 48998-3, TSHR #### [facility] ([id number]) [address], [facility] [address] [place] [address] Lymphocytes/100 WBC (Bld) 22.1 % Normal [facility] Comment on above: Performed By: #### Terrell BURGESS CMP, 69062-8, TSHR #### [facility] ([id number]) [address], [facility] [address] [place] [address] MCH (RBC) [Entitic mass] 29.0 pg Normal 27-34 [facility] Comment on above: Performed By: #### Terrell BURGESS CMP, 11639-4, TSHR #### [facility] ([id number]) [address], [address] [place] [address] MCHC (RBC) [Mass/Vol] 32.8 g/dL Normal 32-36 [facility] Comment on above: Performed By: #### Terrell BURGESS CMP, 41957-6, TSHR #### [facility] ([id number]) [address] [address] [place] [address] MCV (RBC) [Entitic vol] 88 fL Normal 80-100 [facility] Comment on above: Performed By: #### Terrell BURGESS CMP, 64222-8, TSHR #### [facility] ([id number]) [address], [address] [place] [address] Monocytes (Bld) [#/Vol] 0.6 10*3/uL Normal 0-0.9 [facility] Comment on above: Performed By: #### C BCA, CMP, 19282-0, TSHR #### [facility] ([id number]) [address], [address] [place] [address] Monocytes/100 WBC (Bld) 5.7 % Normal [facility] Comment on above: Performed By: #### C BCA, CMP, 61151-9, TSHR #### [facility] ([id number]) [address], [address] [place] [address] Neutrophils/100 WBC (Bld) 70.8 % Normal [facility] Comment on above: Performed By: #### Terrell BCA, CMP, 66496-3, TSHR #### [facility] ([id number]) [address], [address] [place] [address] Platelet mean volume (Bld) [Entitic vol] 9.7 fL Normal 7-12 [facility] Comment on above: Performed By: #### Terrell BCA, CMP, 45366-5, TSHR #### [facility] ([id number]) [address] [address] [place] [address] Platelets (Bld) [#/Vol] 303 10*3/uL Normal 150-450 [facility] Comment on above: Performed By: #### C BCA, CMP, 34044-3, TSHR #### [facility] ([id number]) [address] [address] [place] [address] RBC COUNT 5.17 X10E12/L Normal 3.80-5.20 [facility] Comment on above: Performed By: #### C BCA, CMP, 09100-5, TSHR #### [facility] ([id number]) [address], [address] [place] [address] WBC (Bld) [#/Vol] 10.9 10*3/uL Normal 4.0-11.0 [facility] Comment on above: Performed By: #### C BCA, CMP, 87156-9, TSHR #### [facility] ([id number]) [address], [address] [place] [address] COMPREHENSIVE METABOLIC PANE Dirk 03-16-2023 Albumin [Mass/Vol] 4.7 g/dL Normal 3.2-5.3 [facility] Comment on above: Performed By: #### C BCA, CMP, 16652-3, TSHR #### [facility] ([id number]) [address], [address] [place] [address] ALP [Catalytic activity/Vol] 74 U/L Normal 39-130 [facility] Comment on above: Performed By: #### C BCA, CMP, 73617-5, TSHR #### [facility] ([id number]) [address], [address] [place] [address] ALT [Catalytic activity/Vol] 22 U/L Normal 0-31 [facility] Comment on above: Performed By: #### C BCA, CMP, 14446-5, TSHR #### [facility] ([id number]) [address], [address] [place] [address] Anion gap [Moles/Vol] 12 mmol/L Normal 5-15 [facility] Comment on above: Performed By: #### C BCA, CMP, 60268-4, TSHR #### [facility] ([id number]) [address], [address] [place] [address] AST [Catalytic activity/Vol] 20 U/L Normal 0-41 [facility] [facility] Comment on above: Performed By: #### C BCA, CMP, 94990-1, TSHR #### [facility] ([id number]) [address], [address] [place] [address] Bilirubin [Mass/Vol] 0.5 mg/dL Normal 0.3-1.2 [facility] Comment on above: Performed By: #### C JAHAIRA BURGESS, 51373-1, TSHR #### [facility] ([id number]) [address], [facility] [address] [place] [address] Calcium [Mass/Vol] 9.9 mg/dL Normal 8.5-10.5 [facility] Comment on above: Performed By: #### C JAHAIRA BURGESS, 28519-5, TSHR #### [facility] ([id number]) [address], [address] [place] [address] Chloride [Moles/Vol] 105 mmol/L Normal 98-109 [facility] Comment on above: Performed By: #### C JAHAIRA BURGESS, 15604-6, TSHR #### [facility] ([id number]) [address], [address] [place] [address] CO2 [Moles/Vol] 25 mmol/L Normal 22-32 [facility] Comment on above: Performed By: #### C JAHAIRA BURGESS, 67454-5, TSHR #### [facility] ([id number]) [address], [facility] [address] [place] [address] Creatinine [Mass/Vol] 0.74 mg/dL Normal 0.40-1.00 [facility] Comment on above: Result Comment: METH OD TRACEABLE TO IDMS STANDARD Performed By: #### C JAHAIRA BURGESS, 61793-9, TSHR #### [facility] ([id number]) [address], [address] [place] [address] eGFR (CKD-EPI) NON-RACE DEPENDENT >90 Normal >59 [facility] Comment on above: Result Comment: Reported eGFR is based on the CKD-EPI 2020 equation that does not use a race coefficient. Performed By: #### C ADITYA CMP, 28914-4, TSHR #### [facility] ([id number]) [address], [address] [place] [address] Glucose [Mass/Vol] 143 mg/dL High 65-99 [facility] Comment on above: Performed By: #### C BCA, CMP, 15499-8, TSHR #### [facility] ([id number]) [address], [address] [place] [address] Potassium [Moles/Vol] 3.8 mmol/L Normal 3.5-5.0 [facility] Comment on above: Performed By: #### C BCA, CMP, 90889-6, TSHR #### [facility] ([id number]) [address], [address] [place] [address] Protein [Mass/Vol] 7.8 g/dL Normal 6.0-8.0 [facility] Comment on above: Performed By: #### C BCA, CMP, 33269-9, TSHR #### [facility] ([id number]) [address], [address] [place] [address] Sodium [Moles/Vol] 142 mmol/L Normal 134-146 [facility] Comment on above: Performed By: #### C BCA, CMP, 11405-0, TSHR #### [facility] ([id number]) [address], [address] [place] [address] Urea nitrogen [Mass/Vol] 17 mg/dL Normal 5-23 [facility] Comment on above: Performed By: #### C BCA, CMP, 23498-6, TSHR #### [facility] ([id number]) [address], [address] [place] [address] HGB A1C (GLYCO-HGB)on 2023 Glucose [Mass/Vol] 117 mg/dL Normal [facility] Comment on above: Performed By: #### C BCA, CMP, 94059-4, TSHR #### [facility] ([id number]) [address], [address] [place] [address] HbA1c (Bld) [Mass fraction] 5.7 % High 4.4-5.6 [facility] Comment on above: Result Comment: NOTE ADA Guidelines Result HgbA1c Normal : less than 5.7 % Prediabetes : 5.7 % to 6.4 % Diabetes : > 6.4 % Use with caution in patients with abnormal hemoglobin variants as the half-life of red blood cells and in vivo glycation rates are affected. Performed By: #### Terrell BURGESS CMP, 93665-1, TSHR #### [facility] ([id number]) [address], [facility] [address] [place] [address] Lipid 1996 panelon 4 Cholesterol [Mass/Vol] 132 mg/dL Low 150-200 [facility] Comment on above: Performed By: #### Terrell BURGESS CMP, 89573-7, TSHR #### [facility] ([id number]) [address], [facility] [address] [place] [address] Cholesterol in HDL [Mass/Vol] 58 mg/dL Normal >39 [facility] Comment on above: Result Comment: HDL <40 mg/dL - High Risk HDL > or = 40mg/dL- Desirable HDL >60 mg/dL - Negative Risk Performed By: #### Terrell BURGESS CMP, 09821-5, TSHR #### [facility] ([id number]) [address], [facility] [address] [place] [address] Cholesterol in LDL [Mass/Vol] 51 mg/dL Normal <130 [facility] Comment on above: Result Comment: LDL <100 mg/dL - Desirable LDL >160 mg/dL - High Risk Performed By: #### C ADITYA, CMP, 21207-9, TSHR #### [facility] ([id number]) [address], [address] [place] [address] Cholesterol in VLDL [Mass/Vol] 23 mg/dL Normal 0-30 [facility] Comment on above: Performed By: #### C BCA, CMP, 73222-0, TSHR #### [facility] ([id number]) [address], [address] [place] [address] CHOLESTEROL:HDL 2.3 Normal 1.0-5.0 [facility] Comment on above: Performed By: #### C BCA, CMP, 21513-6, TSHR #### [facility] ([id number]) [address], [address] [place] [address] Triglyceride [Mass/Vol] 114 mg/dL Normal 27-150 [facility] Comment on above: Performed By: #### C BCA, CMP, 15961-0, TSHR #### [facility] ([id number]) [address], [address] [place] [address] MAMM SCREENING BILATERAL W C engineering department chair 03-16-2023 MAMM SCREENING BILATERAL W CAD MAMM [...] 3:25 PM 0A a ADDITIONAL I Normal [facility] TSH WITH REFLEXon 03-16-2023 TSH 0.55 uIU/mL Normal 0.49-4.67 [facility] Comment on above: Performed By: #### C BCA, [facility], 94240-4, TSHR #### [facility] ([id number]) [address] [facility], [address] [place] [address] PT - Assessmentson 3 PT - Assessments [id number]#1.00CD:12 7 Normal [facility] ST - Assessmentson 3 ST - Assessments [id number]#1.00CD:127 Normal [facility] Consenton 09-25-2022 Consent [id number]#1.00CD:127 Normal [facility] Outside Recordson 2022 Outside Records [id number]#1.00CD:127 Normal [facility] ST - Orderson 2022 ST - Orders [id number]#1.00CD:127 Normal [facility] ST - Orders [id number]#1.00CD:127 Normal [facility] ST - Otheron 2022 ST - Other [id number]#1.00CD:127 Normal [facility] PAP ACOG PANEL 2: 30 to 65on 05-27-2022 . . Normal [facility] Comment on above: Result Comment: Perf ormed at: WB Performed By: #### 4 [id number] #### [facility] [address] [address] [address] Do Aguilar Age Gdln ACOG Testing 30-65 Normal [facility] Comment on above: Performed By: #### 4 [id number] #### [facility] [address] [address] [address] Do Aguilar DIAGNOSIS: Comment Normal [facility] Comment on above: Result Comment: NEGA TIVE FOR INTRAEPITHELIAL LESION OR MALIGNANCY. Performed at: WB Performed By: #### 4 [id number] #### [facility] [address] [address] [address] Do Aguilar HPV Aptima Negative Normal Negative [facility] Comment on above: Result Comment: This nucleic acid amplification test detects fourteen high-risk HPV types (16,18,31,33,35,39,45,51,52,56,58,59,66,68) without differentiation. Performed at: =G Performed By: #### 4 [id number] #### [facility] [address] [address] [address] Do Aguilar HPV Genotype Reflex Comment Normal [facility] Comment on above: Result Comment: Crit eria not met, HPV Genotype not performed. Performed at: WB Performed By: #### 4 [id number] #### [facility] [address] [address] [address] Do Aguilar Methodology: Comment [facility] Comment on above: Result Comment: This liquid based ThinPrep(R) pap test was screened with the use of an image guided system. Performed at: WB Performed By: #### 4 [id number] #### [facility] [address] [place] [address] Dr. Do Aguilar Note: Comment Normal [facility] Comment on above: Result Comment: The Pap smear is a screening test designed to aid in the detection of premalignant and malignant conditions of the uterine cervix. It is not a diagnostic procedure and should not be used as the sole means of detecting cervical cancer. Both false-positive and false-negative reports do occur. . Performed at: WB Performed By: #### 4 [id number] #### [facility] [address] [place] [address] Dr. Do Aguilar Performed by: Comment Normal [facility] Comment on above: Result Comment: Melissa Ramachandran, Field Merchandiser (ASCP) Performed at: WB Performed By: #### 4 [id number] #### [facility] [address] [place] [address] Dr. Do Aguilar Specimen adequacy: Comment Normal [facility] Comment on above: Result Comment: Sati sfactory for evaluation. Endocervical and/or squamous metaplastic cells (endocervical component) are present. Performed at: WB Performed By: #### 4 [id number] #### [facility] [address] [place] [address] Dr. Do Aguilar HEPATITIS C AB CASCADE TO QU ANT PCR GENOon 02-18-2022 HCV AB <0.1 Normal 0.0-0.9 [facility] Comment on above: Performed By: #### H EPCASC #### [facility] [address] [place] [address] Dr. Do Aguilar Interpretation: Comment Normal [facility] Comment on above: Result Comment: Nega tive Not infected with HCV, unless recent infection is suspected or other evidence exists to indicate HCV infection. Performed By: #### H EPCASC #### [facility] [address] [place] [address] Dr. Do Aguilar LIVER PROFILEon 02-17-2022 Albumin [Mass/Vol] 3.6 g/dL Normal 3.4-5.0 [facility] Comment on above: Performed By: #### L IVER #### [facility] [address] [place] [address] Dr. Do Aguilar Albumin/Globulin [Mass ratio] 0.9 {ratio} Normal [facility] Comment on above: Performed By: #### L IVER #### [facility] [address] [address] [address] Do Aguilar ALP [Catalytic activity/Vol] 79 U/L Normal 46-116 [facility] Comment on above: Performed By: #### L IVER #### [facility] [address] [place] [address] Dr. Do Aguilar ALT [Catalytic activity/Vol] 51 U/L Normal 14-59 [facility] Comment on above: Performed By: #### L IVER #### [facility] [address] [address] [address] Do Aguilar AST [Catalytic activity/Vol] 33 U/L Normal 15-37 [facility] Comment on above: Performed By: #### L IVER #### [facility] [address] [place] [address] Dr. Do Aguilar BILI, CONJUGATED 0.1 mg/dL Normal 0.0-0.2 [facility] Comment on above: Performed By: #### L IVER #### [facility] [address] [place] [address] Dr. Do Aguilar Bilirubin [Mass/Vol] 0.3 mg/dL Normal 0.2-1.0 [facility] Comment on above: Performed By: #### L IVER #### [facility] [address] [place] [address] Dr. Do Aguilar Globulin (S) [Mass/Vol] 4.2 g/dL Normal [facility] Comment on above: Performed By: #### L IVER #### [facility] [address] [place] [address] Dr. Do Aguilar Protein [Mass/Vol] 7.8 g/dL Normal 6.4-8.2 [facility] Comment on above: Performed By: #### L IVER #### [facility] [address] [place] [address] Dr. Do Aguilar TSHon 02-17-2022 TSH 0.457 uIU/mL Normal 0.358-3.74 0 [facility] Comment on above: Performed By: #### T SH #### [facility] [address] [place] [address] Dr. Do Aguilar VITAMIN B12on 02-17-2022 Cobalamin (Vitamin B12) [Mass/Vol] 1864.0 pg/mL Critically high 193.0-986. 0 [facility] Comment on above: Performed By: #### V ITB12 #### [facility] [address] [address] [address] Do Aguilar History and Physicalon 12-04 History and Physical [id number][facility] - [facility]/P godwin 12-04-2016 Operative Report - Surgeon/Physician [id number]#1.00[facility] Coding Summaryon 11-26-2016 Coding Summary CODING DATE: 017 [facility] STATUS: Home PAYOR: Medicaid HMO ADMIT DX: REASON FOR VISIT DX: R10.13 Epigastric pain R10.11 Right upper quadrant pain FINAL DX: PRINCIPAL: K29.70 Gastritis, unspecified, without bleeding SECONDARY: PROCEDURES DOCTOR NAME DATE 48051 Esophagogastroduodenoscopy , Juan Ramon Jean MD 11/21/2016 flexible, transoral; with biopsy, single or multiple NOTE: The code number assigned matches the documented diagnosis and / or procedure in the patient's chart. However, the narrative phrase printed from the coding software may appear abbreviated, or result in slightly different terminology. Coded By: Rosalba Laureano Date Saved: 11/26/2016 01:09 pm [facility] Consent Formson 11-24-2016 Consent Forms [id number]#[facility] 2016 Intraoperative Note [id number]#1.00[facility] Intra[facility] Note [id number]#1.00[facility] Operative Report - Surgeon/P godwin 11-24-2016 Operative Report - Surgeon/Physician DATE OF PROCEDURE: 11/21/2016PREOPERATIVE DIAGNOSIS: Epigastric pain/right upper quadrant pain.POSTOPERATIVE DIAGNOSIS: Moderate gastritis.PROCEDURE PERFORMED: EGD with biopsy x1 from the antrum of the stomach forH. pylori testing.SURGEON: Juan Ramon Jean M.D.ANESTHESIA: Conscious sedation with Versed 6 mg IV, Demerol 50 mg IV.FINDINGS: As above.DISPOSITION: To the [facility] in fair condition.INDICATIONS: The patient is [...] in two weeks.Juan Ramon Jean M.D.JOB #: [id number]: 11/21/2016T: 11/21/2016[Electronically Signed on: 12/03/2016 07:09 EDT] Juan Ramon Jean MD Generated Domain User for [id number][Verified on: 12/03/2016 07:09 EDT] Juan Ramon Jean MD[Transcribed on: 11/21/2016 11:37 EDT]GDU [facility] Telemetry Stripson 7 Telemetry Strips [id number]#1.00OTGTIFF [facility] Telemetry Strips [id number]#1.00OTGTIFF [facility] H. Pylori Gastricon 11-22-19 17 H. Pylori Rico Int Ctrl Pass [facility] Comment on above: Order Comment: H. (A NTRUM) Result Comment: Pass Performed By: #### 2 [id number] ####[facility] (DEFAULT)[address] [place] [address] H. Pylori Gastric Negative Normal Negative [facility] Comment on above: Order Comment: H. (A NTRUM) Result Comment: Nega tive Performed By: #### 2 [id number] ####[facility] (DEFAULT)[address] [place] [address] Inpatient Clinical Summaryon 11-21-2016 Inpatient Clinical Summary [facility] SURGERYClinical Discharge SummaryPERSON INFORMATIONName KARMA SR Age 36 Years 80Sex FEMALE Language Chinese PCP DEFRANCE, DAVIDMarital Status [facility] Acct# Arrival 11/21/16 07:22:21Visit Reason EGD - EPIGASTRIC ABDOMINAL PAIN Acuity LOS 013 23:19Address:[address] [facility] [address]Bgaxtbr:PROVIDER INFORMATIONVITALS INFORMATIONVital Sign Triage LatestTemp OralTemp Temporal 36.4 DegC 36.4 DegCTemp IntravascularTemp AxillaryTemp Gwamdt54 Sat 100 % 97 %Respiratory Rate 16 [...] INFORMATIONInstructions:Fo llow up:With: Address: When:Juan Ramon Jean [address] [place] [address] [facility] (1) Within 2 to 4 weeksComments:Call for follow up appointmentWith: Address: When:DOMENICA VARGHESEMARK [address] [place] [address] [phone] Business (1)DIAGNOSISAcute gastritisComment:PHYS DOC NOTES Normal [facility] Inpatient Patient Summaryon 11-21-2016 Inpatient Patient Summary [address] [id number] Patient Discharge InstructionsName: KARMA SRDOB: [birth year] Address: [address] [place] [address] Care Provider:Name: DOMENICA OLIVAPhone: Discharge Diagnosis: Acute [...] or business decisions or sign any legal documentsRegional Medical Center would like to thank you for allowing us to assist you with your healthcare needs. The following includes patient education materials and information regarding your injury/illness.KARMA SR has been given the following list of follow-up instructions, prescriptions, and patient education materials:Follow-up InstructionsWith: Address: When:Juan Ramon Jean [address] [place] [phone] [facility] (1) Within 2 to 4 weeksComments:Call for follow up appointmentWith: Address: When:DOMENICA ABIMAELMARK [address] [place] [address] [phone] [facility] (1)MedicationsDuring the course of your visit, your [...] Antibiotics [place] Department of Health and Human ServicesJoint [facility] Hospitalers for Disease Control and Prevention October 2013 [facility] ordon 11-21-2016 [facility] Intraoperative Record [facility] Intra-Op Record Summary Primary Physician: Juan Ramon Jean MD Finalized Date/Time: 11/21/16 08:37:38 Pt. Name: KARMA SR./Sex: 1980 FEMALE Med Rec #: [id number] Physician: Juan Ramon Jean MD Financial #: [id number] Pt. Type: D Room/Bed: / Admit/Disch: 11/21/16 [...] Jane RN Role Performed Surgeon - Primary Market Asset Protection Manager Market Asset Protection Manager Time In 11/21/16 08:06:00 11/21/16 08:06:00 11/21/16 [...] 11/21/16 08:37 MHDBARONE Modify Pick List Normal [facility]o Postoperative Benjamin rdon 11-21-2016 [facility] Postoperative Record [facility] Phase II Record Summary Primary Physician: Juan Ramon Jean MD Finalized Date/Time: 11/21/16 10:02:07 Pt. Name: KARMA SR /Sex: 1980 FEMALE Med Rec #: [id number] Physician: Juan Ramon Jean MD Financial #: [id number] Pt. Type: D Room/Bed: / Admit/Disch: 11/21/16 [...] per W/C to private car. Finalized By: Warga, Cammy RN Document Signatures Signed By: Cammy Barroso RN 11/21/16 10:02 [facility] Endo Preoperative Recor don 11-21-2016 [facility] Preoperative Record [facility] Pre-Op Record Summary Primary Physician: Juan Ramon Jean MD Finalized Date/Time: 11/21/16 08:27:58 Pt. Name: KARMA SR /Sex: 1980 FEMALE Med Rec #: [id number] Physician: Juan Ramon Jean MD Financial #: [id number] Pt. Type: D Room/Bed: / Admit/Disch: 11/21/16 [...] Signed By: Cammy Barroso RN 11/21/16 08:27 [facility] Test Urine 1on U Preg Negative [facility] Comment on above: Result Comment: Nega tive Performed By: #### 3 [id number] ####[facility] (DEFAULT)[address] [place] [address] U Preg Internal Control Pass [facility] Comment on above: Result Comment: Pass Performed By: #### 3 [id number] ####[facility])[address] [place] [address] Vital Signs Date Time Vital Sign Value Performing Clinician Facility 06-02-2023 14:32-0400 Body mass index (BMI) [Ratio] 36.67 kg/m2 Deepika Robledo MD Work Phone: [facility] 06-02-2023 14:32-0400 Body weight 93.89 kg Deepika Robledo MD Work Phone: [facility] 06-02-2023 14:32-0400 Diastolic blood pressure 102 mm[Hg] Deepika Robledo MD Work Phone: [facility] 06-02-2023 14:32-0400 Heart rate 83 /min Deepika Robledo MD Work Phone: [facility] 06-02-2023 14:32-0400 Systolic blood pressure 136 mm[Hg] Deepika Robledo MD Work Phone: [facility] 05-21-2023 11:22-0400 Body height 160.02 cm [facility] 05-21-2023 11:22-0400 Body mass index (BMI) [Ratio] 36.5 kg/m2 [facility] 05-21-2023 11:22-0400 Body weight 93.44 kg [facility] 05-21-2023 10:39-0400 Body height 160.02 cm [facility] 05-21-2023 10:39-0400 Body mass index (BMI) [Ratio] 36.5 kg/m2 [facility] 05-21-2023 10:39-0400 Body weight 93.49 kg [facility] 05-21-2023 10:39-0400 Diastolic blood pressure 77 mm[Hg] [facility] 05-21-2023 10:39-0400 Heart rate 105 /min [facility] 05-21-2023 10:39-0400 Respiratory rate 18 /min [facility] 05-21-2023 10:39-0400 SaO2% (BldA) [Mass fraction] 95 % [facility] 05-21-2023 10:39-0400 Systolic blood pressure 114 mm[Hg] [facility] 04-28-2023 11:21-0500 Body height 160 cm Gaurav CALVO Work Phone: [facility] 04-28-2023 11:21-0500 Body mass index (BMI) [Ratio] 36.14 kg/m2 Gaurav CALVO Work Phone: [facility] 04-28-2023 11:21-0500 Body weight 92.53 kg Gaurav Sellers PA Work Phone: [facility] 04-28-2023 11:21-0500 Diastolic blood pressure 82 mm[Hg] Gaurav CALVO Work Phone: [facility] 04-28-2023 11:21-0500 Heart rate 87 /min Gaurav Sellers PA Work Phone: [facility] 04-28-2023 11:21-0500 Respiratory rate 16 /min Gaurav Sellers PA Work Phone: [facility] 04-28-2023 11:21-0500 SaO2% (BldA) [Mass fraction] 97 % Gaurav CALVO Work Phone: [facility] 04-28-2023 11:21-0500 Systolic blood pressure 122 mm[Hg] Gaurav CALVO Work Phone: [facility] 04-20-2023 12:41-0500 Body mass index (BMI) [Ratio] 36.49 kg/m2 Shawna Rumschlag DO Work Phone: [facility] [employer] 04-20-2023 12:41-0500 Body weight 93.44 kg Shawna Rumschlag DO Work Phone: [facility] [employer] 04-20-2023 12:41-0500 Diastolic blood pressure 76 mm[Hg] Shawna Rumschlag DO Work Phone: [facility] [employer] 04-20-2023 12:41-0500 Heart rate 83 /min Shawna Rumschlag DO Work Phone: [facility] 04-20-2023 12:41-0500 Respiratory rate 16 /min Shawna Rumschlag DO Work Phone: [facility] 04-20-2023 12:41-0500 SaO2% (BldA) [Mass fraction] 98 % Shawna Rumschlag DO Work Phone: [facility] [employer] [facility] 04-20-2023 12:41-0500 Systolic blood pressure 129 mm[Hg] Shawna Rumschlag DO Work Phone: [facility] [employer] [facility] 04-20-2023 12:39-0500 Body temperature 97.3 [degF] Shawna Rumschlag DO Work Phone: [facility] [employer] [facility] 03-18-2023 11:30-0500 Diastolic blood pressure 84 mm[Hg] MD Yo Blank Work Phone: [facility] 03-18-2023 11:30-0500 Heart rate 95 /min MD Yo Blank Work Phone: [facility] 03-18-2023 11:30-0500 Respiratory rate 16 /min MD Yo Blank Work Phone: [facility] 03-18-2023 11:30-0500 SaO2% (BldA) [Mass fraction] 99 % MD Yo Blank Work Phone: [facility] 03-18-2023 11:30-0500 Systolic blood pressure 123 mm[Hg] MD Yo Blank Work Phone: [facility] 03-05-2023 09:15-0500 Body height 160.02 cm Gayathri Adams Other [employer] Other 03-05-2023 09:15-0500 Body mass index (BMI) [Ratio] 37.57 kg/m2 Gayathri Scally Other [employer] Other 03-05-2023 09:15-0500 Body weight 96.21 kg Gayathri Scally Other [employer] Other 03-05-2023 09:15-0500 Diastolic blood pressure 89 mm[Hg] Gayathri Scally Other [employer] Other 03-05-2023 09:15-0500 Respiratory rate 18 /min Gayathri Scally Other [employer] Other 03-05-2023 09:15-0500 SaO2% (BldA) [Mass fraction] 96 % Gayathri Scally Other [employer] Other 03-05-2023 09:15-0500 Systolic blood pressure 122 mm[Hg] Gayathri Scally Other [employer] Other 03-02-2023 19:24-0500 Body height 160 cm Sil Sullivan DO Work Phone: [employer] 03-02-2023 19:24-0500 Body mass index (BMI) [Ratio] 36.31 kg/m2 Sil Sullivan DO Work Phone: [employer] 03-02-2023 19:24-0500 Body temperature 98.29 [degF] Sil Sullivan DO Work Phone: [employer] 03-02-2023 19:24-0500 Body weight 92.99 kg Sil Sullivan DO Work Phone: [employer] 03-02-2023 19:24-0500 Diastolic blood pressure 98 mm[Hg] Sil Sullivan DO Work Phone: [employer] 03-02-2023 19:24-0500 Heart rate 82 /min Sil Sullivan DO Work Phone: [employer] 03-02-2023 19:24-0500 Respiratory rate 18 /min Sil Sullivan DO Work Phone: [employer] 03-02-2023 19:24-0500 SaO2% (BldA) [Mass fraction] 98 % Sil Sullivan DO Work Phone: [employer] 03-02-2023 19:24-0500 Systolic blood pressure 139 mm[Hg] Sil Sullivan DO Work Phone: [employer] 02-05-2023 09:20-0500 Body height 160.02 cm Jan Garg Other [employer] Other 02-05-2023 09:20-0500 Body mass index (BMI) [Ratio] 36.66 kg/m2 Jan Scmechellener Other [employer] Other 02-05-2023 09:20-0500 Body weight 93.9 kg Jan Scovanner Other [employer] Other 01-15-2023 09:45-0500 Body height 160.02 cm Gayathri Scally Other [employer] Other 01-15-2023 09:45-0500 Body mass index (BMI) [Ratio] 36.68 kg/m2 Gayathri Scally Other [employer] Other 01-15-2023 09:45-0500 Body weight 93.94 kg Gayathri Scally Other [employer] Other 01-15-2023 09:45-0500 Diastolic blood pressure 83 mm[Hg] Gayathri Brooklynly Other [employer] Other 01-15-2023 09:45-0500 Respiratory rate 18 /min Gayathri Barahonaly Other [employer] Other 01-15-2023 09:45-0500 SaO2% (BldA) [Mass fraction] 99 % Gayathri Barahonaly Other [employer] Other 01-15-2023 09:45-0500 Systolic blood pressure 119 mm[Hg] Gayathri Brooklynly Other [employer] Other 01-07-2023 10:00-0500 Body height 160.02 cm Jan Garg Other [employer] Other 01-07-2023 10:00-0500 Body mass index (BMI) [Ratio] 36.13 kg/m2 Jan Garg Other [employer] Other 01-07-2023 10:00-0500 Body weight 92.53 kg Jan Garg Other [employer] Other 01-07-2023 10:00-0500 Diastolic blood pressure 74 mm[Hg] Jan Scovanner Other [employer] Other 01-07-2023 10:00-0500 Systolic blood pressure 118 mm[Hg] Jan Scovanner Other [employer] Other 08-28-2022 09:00-0400 Body height 160.02 cm Tamar Sosa Other [employer] Other 08-28-2022 09:00-0400 Body mass index (BMI) [Ratio] 35.8 kg/m2 Tamar Fitt Other [employer] Other 08-28-2022 09:00-0400 Body weight 91.67 kg Tamar Fitt Other [employer] Other 07-29-2022 10:15-0400 Body height 160.02 cm Gayathri Scally Other [employer] Other 07-29-2022 10:15-0400 Body mass index (BMI) [Ratio] 35.18 kg/m2 Gayathri Scally Other [employer] Other 07-29-2022 10:15-0400 Body weight 90.08 kg Gayathri Scally Other [employer] Other 07-29-2022 10:15-0400 Diastolic blood pressure 84 mm[Hg] Gayathri Scally Other [employer] Other 07-29-2022 10:15-0400 Respiratory rate 18 /min Gayathri Scally Other [employer] Other 07-29-2022 10:15-0400 SaO2% (BldA) [Mass fraction] 99 % Gayathri Scally Other [employer] Other 07-29-2022 10:15-0400 Systolic blood pressure 127 mm[Hg] Gayathri Scally Other [employer] Other 05-20-2022 11:15-0400 Body height 160.02 cm Gayathri Scally Other [employer] Other 05-20-2022 11:15-0400 Body mass index (BMI) [Ratio] 34.52 kg/m2 Gayathri Scally Other [employer] Other 05-20-2022 11:15-0400 Body weight 88.41 kg Gayathri Scally Other [employer] Other 05-20-2022 11:15-0400 Diastolic blood pressure 82 mm[Hg] Gayathri Scally Other [employer] Other 05-20-2022 11:15-0400 Respiratory rate 18 /min Gayathri Scally Other [employer] Other 05-20-2022 11:15-0400 SaO2% (BldA) [Mass fraction] 97 % Gayathri Scally Other [employer] Other 05-20-2022 11:15-0400 Systolic blood pressure 121 mm[Hg] Gayathri Scally Other [employer] Other 04-08-2022 11:15-0500 Body height 160.02 cm Gayathri Scally Other [employer] Other 04-08-2022 11:15-0500 Body mass index (BMI) [Ratio] 34.49 kg/m2 Gayathri Scally Other [employer] Other 04-08-2022 11:15-0500 Body weight 88.32 kg Gayathri Scally Other [employer] Other 04-08-2022 11:15-0500 Diastolic blood pressure 77 mm[Hg] Gayathri Scally Other [employer] Other 04-08-2022 11:15-0500 Respiratory rate 18 /min Gayathri Scally Other [employer] Other 04-08-2022 11:15-0500 SaO2% (BldA) [Mass fraction] 98 % Gayathri Scally Other [employer] Other 04-08-2022 11:15-0500 Systolic blood pressure 110 mm[Hg] Gayathri Scally Other [employer] Other 04-08-2022 10:15-0500 Body height 160.02 cm Tamar Fitt Other [employer] Other 04-08-2022 10:15-0500 Body mass index (BMI) [Ratio] 34.49 kg/m2 Tamar Fitt Other [employer] Other 04-08-2022 10:15-0500 Body weight 88.32 kg Tmaar Fitt Other [employer] Other 02-26-2022 10:00-0500 Body height 160.02 cm Tamar Fitt Other [employer] Other 02-25-2022 11:45-0500 Body height 160.02 cm Gayathri Scally Other [employer] Other 02-25-2022 11:45-0500 Body mass index (BMI) [Ratio] 36.63 kg/m2 Gayathri Scally Other [employer] Other 02-25-2022 11:45-0500 Body weight 93.8 kg Gayathri Scally Other [employer] Other 02-25-2022 11:45-0500 Diastolic blood pressure 78 mm[Hg] Gayathri Scally Other [employer] Other 02-25-2022 11:45-0500 Respiratory rate 18 /min Gayathri Scally Other [employer] Other 02-25-2022 11:45-0500 SaO2% (BldA) [Mass fraction] 97 % Gayathri Scally Other [employer] Other 02-25-2022 11:45-0500 Systolic blood pressure 109 mm[Hg] Gayathri Scally Other [employer] Other 01-14-2022 11:45-0500 Body height 160.02 cm Gayathri Scally Other [employer] Other 01-14-2022 11:45-0500 Body mass index (BMI) [Ratio] 39.37 kg/m2 Gayathri Scally Other [employer] Other 01-14-2022 11:45-0500 Body weight 100.84 kg Gayathri Scally Other [employer] Other 01-14-2022 11:45-0500 Diastolic blood pressure 88 mm[Hg] Gayathri Scally Other [employer] Other 01-14-2022 11:45-0500 Respiratory rate 18 /min Gayathri Scally Other [employer] Other 01-14-2022 11:45-0500 SaO2% (BldA) [Mass fraction] 97 % Gayathri Scally Other [employer] Other 01-14-2022 11:45-0500 Systolic blood pressure 124 mm[Hg] Gayathri Scally Other [employer] Other 12-04-2021 12:00-0400 Body height 160.02 cm Gayathri Scally Other [employer] Other 12-04-2021 12:00-0400 Body mass index (BMI) [Ratio] 39.73 kg/m2 Gayathri Scally Other [employer] Other 12-04-2021 12:00-0400 Body weight 101.74 kg Gayathri Scally Other [employer] Other 12-04-2021 12:00-0400 Diastolic blood pressure 74 mm[Hg] Gayathri Scally Other [employer] Other 12-04-2021 12:00-0400 Respiratory rate 18 /min Gayathri Scally Other [employer] Other 12-04-2021 12:00-0400 SaO2% (BldA) [Mass fraction] 95 % Gayathri Scally Other [employer] Other 12-04-2021 12:00-0400 Systolic blood pressure 110 mm[Hg] Gayathri Scally Other [employer] Other 10-29-2021 11:30-0400 Body height 160.02 cm Yo Blank Other [employer] Other 10-29-2021 11:30-0400 Body mass index (BMI) [Ratio] 38.61 kg/m2 Yo Blank Other [employer] Other 10-29-2021 11:30-0400 Body weight 98.88 kg Yo Blank Other [employer] Other 10-29-2021 11:30-0400 Diastolic blood pressure 74 mm[Hg] Yo Blank Other [employer] Other 10-29-2021 11:30-0400 Systolic blood pressure 111 mm[Hg] Yo Blank Other [employer] Other 10-22-2021 13:26-0400 Body temperature 97.2 [degF] Shawna Rumschlag DO Work Phone: [employer] 10-22-2021 13:26-0400 Diastolic blood pressure 71 mm[Hg] Shawna Rumschlag DO Work Phone: [employer] 10-22-2021 13:26-0400 Heart rate 85 /min Shawna Rumschlag DO Work Phone: [employer] 10-22-2021 13:26-0400 Respiratory rate 16 /min Shawna Rumschlag DO Work Phone: [employer] 10-22-2021 13:26-0400 SaO2% (BldA) [Mass fraction] 94 % Shawna Rumschlag DO Work Phone: [employer] 10-22-2021 13:26-0400 Systolic blood pressure 131 mm[Hg] Shawna Rumschlag DO Work Phone: [employer] 10-11-2021 23:48-0400 Body height 160 cm Daniel Adkins MD Work Phone: [employer] 10-11-2021 23:48-0400 Body mass index (BMI) [Ratio] 36.67 kg/m2 Daniel Adkins MD Work Phone: [employer] 10-11-2021 23:48-0400 Body temperature 98.6 [degF] Daniel Adkins MD Work Phone: [employer] 10-11-2021 23:48-0400 Body weight 93.89 kg Daniel Adkins MD Work Phone: [employer] 10-11-2021 23:48-0400 Diastolic blood pressure 88 mm[Hg] Daniel Adkins MD Work Phone: [employer] 10-11-2021 23:48-0400 Heart rate 97 /min Daniel Adkins MD Work Phone: [employer] 10-11-2021 23:48-0400 Respiratory rate 16 /min Daniel Adkins MD Work Phone: [employer] 10-11-2021 23:48-0400 SaO2% (BldA) [Mass fraction] 96 % Daniel Adikns MD Work Phone: [employer] 10-11-2021 23:48-0400 Systolic blood pressure 134 mm[Hg] Daniel Adkins MD Work Phone: [employer] Encounters Encounter Date Encounter Type Care Provider Facility Start: 12-29-2023 End: 12-29-2023 Subsequent hospital visit by physician Tamar Silveira PT [facility] Start: 12-21-2023 End: 12-21-2023 ambulatory CARMEN [facility] Start: 12-15-2023 End: 12-15-2023 ambulatory LORETO MCNEAL [facility] Start: 12-01-2023 End: 12-01-2023 ambulatory [facility] Start: 11-30-2023 End: 11-30-2023 ambulatory AMENA GARNER Not Available Start: 11-17-2023 End: 11-17-2023 ambulatory [facility] Start: 11-17-2023 End: 11-17-2023 Subsequent hospital visit by physician Tamar Silveira PT [facility] Comment on above: Arrived Start: 11-16-2023 End: 11-16-2023 ambulatory Ugo Bourgeois MD Facility:[facility] Start: 10-20-2023 End: 10-20-2023 ambulatory [facility]AWNA [facility] Start: 10-20-2023 End: 10-20-2023 Subsequent hospital visit by physician Jan Olmstead PT [facility] Physical Therapy Comment on above: Arrived Start: 10-08-2023 End: 10-08-2023 ambulatory DWAYNE PALMER [facility] Start: 10-06-2023 End: 10-07-2023 Emergency department patient visit [facility] Start: 10-05-2023 End: 10-05-2023 Emergency department patient visit [facility] Start: 10-05-2023 End: 10-05-2023 Emergency department patient visit [facility] Start: 09-22-2023 End: 09-22-2023 Subsequent hospital visit by physician Jan Olmstead PT [facility] Start: 09-15-2023 End: 09-15-2023 ambulatory SHAWNA EDWARG [facility] Start: 09-07-2023 End: 09-07-2023 ambulatory SHAWNA EDWARG [facility] Start: 09-01-2023 End: 09-01-2023 ambulatory SHAWNA RUMSCHELIZABETHG [facility] Start: 08-26-2023 End: 08-26-2023 ambulatory SHAWNA RUMSCHELIZABETHG [facility] Start: 08-26-2023 End: 08-26-2023 Subsequent hospital visit by physician Kofi Villegas PT [facility] Physical Therapy Comment on above: Arrived Start: 08-21-2023 End: 08-21-2023 ambulatory SHAWNA RUMSCHLAG [facility] Start: 08-21-2023 End: 08-21-2023 Subsequent hospital visit by physician Jan Olmstead PT [facility] Physical Therapy Comment on above: Arrived Start: 08-13-2023 End: 08-13-2023 ambulatory LAILA LIEBERMAN Not Available Start: 08-11-2023 End: 08-11-2023 ambulatory SHAWNA RUMSCHLAG [facility] Start: 08-11-2023 End: 08-11-2023 Subsequent hospital visit by physician Jan Olmstead PT [facility] Physical Therapy Comment on above: Arrived Start: 08-04-2023 End: 08-04-2023 ambulatory SHAWNA RUMSCHLAG [facility] Start: 07-29-2023 End: 07-29-2023 ambulatory SHAWNA DARIOLAG [facility] Start: 07-14-2023 End: 07-14-2023 Subsequent hospital visit by physician Rebecca Skinner PT [facility] Start: 07-07-2023 End: 07-07-2023 ambulatory SHAWNA RUMSCHLAG [facility] Start: 06-30-2023 End: 06-30-2023 ambulatory SHAWNA RUMSCHLAG [facility] Start: 06-17-2023 End: 06-17-2023 ambulatory SHAWNA RUMSCHLAG [facility] Start: 06-16-2023 End: 06-16-2023 ambulatory SHAWNA RUMSCHLAG [facility] Start: 06-04-2023 End: 06-04-2023 ambulatory SHAWNA RUMSCHLAG [facility] Start: 06-03-2023 End: 06-03-2023 ambulatory [facility] Start: 06-02-2023 End: 06-02-2023 Office outpatient new 30 minutes Deepika Robledo MD Work Phone: [facility] Comment on above: Mass of upper outer quadrant of right breast (Primary Dx); Abnormal mammogram; Symptomatic mammary hypertrophy Start: 06-02-2023 End: 06-02-2023 ambulatory DEEPIKA ROBLEDO [facility] pital Start: 06-02-2023 ambulatory SHAWNA RUMSCHLAG [facility] Start: 05-25-2023 End: 05-25-2023 ambulatory ALICIA PRESTON Not Available Start: 05-21-2023 End: 05-21-2023 Patient encounter procedure [facility] Physician [facility] Gastroenterology Work Phone: Start: 05-21-2023 End: 05-21-2023 Patient encounter [facility] Work Phone: Start: 05-20-2023 End: 05-20-2023 ambulatory SHAWNA RUMSCHLAG [facility] Start: 05-19-2023 End: 05-19-2023 ambulatory SHAWNA RUMSCHLAG [facility] Start: 05-12-2023 Telephone encounter Deepika Robledo MD Work Phone: [facility] Start: 05-06-2023 End: 05-06-2023 ambulatory SHAWNA RUMSCHLAG [facility] Start: 05-06-2023 End: 05-06-2023 Subsequent hospital visit by physician Rojas Altamirano PTA [facility] Physical Therapy Comment on above: Arrived Start: 05-05-2023 End: 05-05-2023 ambulatory SHAWNA RUMSCHLAG [facility] Start: 04-30-2023 Emery Fulton RN [facility] Start: 04-28-2023 End: 04-28-2023 ambulatory GAURAV SELLERS [facility] Start: 04-28-2023 End: 04-28-2023 Office outpatient visit 25 minutes Gaurav CALVO Work Phone: [facility] Comment on above: 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 (Primary Dx) Start: 04-21-2023 End: 04-21-2023 ambulatory SHAWNA RUMSCHLAG [facility] Start: 04-20-2023 End: 04-20-2023 Emergency department patient visit [facility] ED Comment on above: Closed head injury, initial encounter (Primary Dx); Fall due to slipping on ice or snow, initial encounter; Acute cervical myofascial strain, initial encounter Start: 04-16-2023 ambulatory Myrtle Cerna Facility: [facility] Start: 04-07-2023 End: 04-07-2023 ambulatory [facility] Start: 03-31-2023 Emery Clay RN [facility] Start: 03-27-2023 End: 03-27-2023 ambulatory PETE SILVER [facility] Start: 03-24-2023 End: 03-24-2023 ambulatory [facility] Start: 03-19-2023 End: 03-19-2023 ambulatory GABY JUNE Not Available Start: 03-18-2023 Telephone encounter Jan [facility] Start: 03-18-2023 End: 03-18-[address] [facility] [employer] Other Start: 03-18-2023 Non-patient / Non-visit MD Yo Blank Work Phone: [facility] Gastroenterology Work Phone: Start: 03-17-2023 End: 03-17-2023 ambulatory Jan Garg Other [facility] [employer] Other Start: 03-17-2023 Telephone encounter Jan Peterson [facility] Start: 03-16-2023 Encounter for genera l adult medical examination without abnormal findings [facility] Start: 03-16-2023 End: 03-16-2023 ambulatory RORY DRIVER [facility] Start: 03-16-2023 End: 03-16-2023 ambulatory LULY ENGLISH Not Available Start: 03-10-2023 End: 03-10-2023 ambulatory [facility] Start: 03-10-2023 End: 03-10-2023 Subsequent hospital visit by physician Tamar Silveira PT [facility] Physical Therapy Comment on above: Arrived Start: 03-05-2023 (FCCCWMNF/U) Weight Management f/u [facility] Start: 03-05-2023 End: 03-05-2023 [facility] [employer] [facility] Start: 03-05-2023 Registered Recurring MD Monserrat Blank Work Phone: [facility] Work Phone: Start: 03-02-2023 End: 03-02-2023 Emergency department patient visit Sil Sullivan DO Work Phone: [facility] ED Comment on above: Constipation, unspec ified constipation type (Primary Dx) Start: 02-26-2023 End: 02-26-2023 ambulatory Jan Garg Other [employer] Other Start: 02-26-2023 Telephone encounter Jan [facility] Start: 02-20-2023 Telephone encounter Argenis Storm RN [facility] Comment on above: Medication, DME Start: 02-18-2023 End: 02-18-2023 ambulatory Jan Garg Other [employer] Other Start: 02-18-2023 Telephone encounter Jan Peterson [facility] Start: 02-10-2023 Telephone encounter Margaux Olea CST [facility] Start: 02-05-2023 End: 02-05-2023 ambulatory Jan Garg Other [employer] Other Start: 02-05-2023 Office outpatient visit 15 minutes Jan Garg [facility] Start: 01-15-2023 (FCCCWMNF/U) Weight Management f/u [facility] Start: 01-15-2023 End: 01-15-2023 ambulatory Gayathrimarino Adams Other [employer] Other Start: 01-07-2023 End: 01-07-2023 ambulatory Jan Garg Other [employer] Other Start: 01-07-2023 Office outpatient visit 15 minutes Jan Garg [facility] Gastro[facility] Start: 09-25-2022 End: 01-16-2023 ambulatory OPERATIONS SECTION MANAGER YUE GRANADO Facility:[facility] Start: 09-25-2022 End: 01-15-2023 Recurring YUE GRANADO [facility] Start: 09-17-2022 End: 09-17-2022 ambulatory Gayathri Adams Other [employer] Other Start: 09-17-2022 Telephone encounter Gayathri Adams F [facility] Start: 08-28-2022 ([facility] RD FU) [facility] F/ U Registerd Medical Case Worker Tamar Sosa [facility] Start: 08-28-2022 End: 08-28-2022 ambulatory Tamar Sosa Other [employer] Other Start: 07-29-2022 ([facility] Weight Management f/u Gayathri Angie [facility] Start: 07-29-2022 End: 07-29-2022 ambulatory Gayathri Brooklynly Other [employer] Other Start: 05-20-2022 ([facility] Weight Management f/u Gayathri Brooklynly [facility] Start: 05-20-2022 End: 05-20-2022 ambulatory Gayathri Brooklynly Other [employer] Other Start: 05-19-2022 End: 05-19-[address] ALICIA PRESTON . Facility:[facility] Start: 05-07-2022 End: 05-08-[address] DOCTOR ARREOLA Facility:[facility] Start: 04-09-2022 End: 04-09-2022 ambulatory Gayathri Adams Other [employer] Other Start: 04-09-2022 Telephone encounter Gayathri Barahonaludy F [place] [facility] Start: 04-08-2022 ([facility] WMNI) WMN Initial Provider Tamar Sosa [facility] Start: 04-08-2022 ([facility] Weight Management f/u Gayathri Adams [facility] Start: 04-08-2022 End: 04-08-2022 ambulatory Tamar Fitt Other [employer] Other Start: 02-26-2022 End: 02-26-2022 ambulatory Tamar Fitt Other [employer] Other Start: 02-26-2022 IBT FOR OBESITY GROU P 2-10 30M Tamarsruthi Sosa [facility] Start: 02-25-2022 ([facility] Weight Management f/u Gayathri Adams [facility] Start: 02-25-2022 End: 02-25-2022 ambulatory Gayathri Brooklynludy Other [employer] Other Start: 02-17-2022 End: 02-18-2022 ambulatory RORY DRIVER Facility:[facility] Start: 01-29-2022 End: 01-30-2022 ambulatory JOY ARAMBULA Facility:[facility] Start: 01-14-2022 ([facility] Weight Management f/u Gayathri Adams [facility] Start: 01-14-2022 End: 01-14-2022 ambulatory Gayathri Adams Other [employer] Other Start: 12-05-2021 End: 12-05-2021 ambulatory Gayathri Adams Other [employer] Other Start: 12-05-2021 Telephone encounter Gayathri last [facility] Start: 12-04-2021 End: 12-04-2021 ambulatory Gayathri Adams Other [employer] Other Start: 12-04-2021 Nutrition therapy Gayathri gruber [facility] Start: 10-29-2021 End: 10-29-2021 ambulatory Yo Blank Other [employer] Other Start: 10-29-2021 Patient encounter procedure Yo Blank [facility] Start: 10-22-2021 End: 10-22-2021 Emergency department patient visit Shawna Mcfadden DO Work Phone: [facility] ED Comment on above: Acute diffuse otitis externa of left ear (Primary Dx) Start: 10-11-2021 End: 10-12-2021 Emergency department patient visit Daniel Adkins MD Work Phone: [facility] ED Comment on above: Pilonidal cyst (Prim romero Dx) Start: 11-21-2016 End: 11-26-2016 Ambulatory [facility] Procedures Date Procedure Procedure Detail Performing Clinician Start: 05-25-2023 Microscopic observat ion [Identifier] in Cervix by Cyto stain Deepika Robledo MD Work Phone: Start: 04-20-2023 Ct cervical spine w/ o contrast material Keith Urbina PIERCER OPERATOR - OPERATIONS SECTION MANAGER Work Phone: Start: 04-20-2023 Ct head/brain w/o co ntrast material Keith Urbina PIERCER OPERATOR - OPERATIONS SECTION MANAGER Work Phone: Start: 05-02-2022 Microalbumin [Mass/v olume] in Urine by Test strip Patricia Clay RN Start: 05-02-2020 Adult depression scr eening assessment Argenis Storm RN Start: 08-30-2016 Cholecystectomy [facility] Start: 01-03-2013 nasal surgery YUE ALVARENGA RS Tonsillectomy YUE GRANADO Plan of Treatment Date Care Activity Detail Author Start: 05-24-2026 Screening for malignant neoplasm of cervix Pap [facility]ear [facility] Start: 03-16-2025 Screening for malignant neoplasm of breast Breast cancer [facility] Start: 11-10-2024 End: 11-10-2024 Patient encounter procedure 11/10/2024 11:30 AM EDT Office Visit [facility] [address] [place] [address] Karen Cotter, PIERCER OPERATOR - OPERATIONS SECTION MANAGER [address] [facility] [address] [place] [address] 1 year KUB [facility] Comment on above: 1 year KUB Start: 06-01-2024 Adult BMI Screening Adult BMI Screen ing [facility] Start: 04-28-2024 Adult BMI Screening Adult BMI Screen ing [facility] Start: 04-28-2024 Tobacco Screening Tobacco Screening [facility] Start: 03-16-2024 Adult BMI Screening Adult BMI Screen ing [facility] Start: 01-30-2024 Adult BMI Screening Adult BMI Screen ing [facility] Start: 01-30-2024 Tobacco Screening Tobacco Screening [facility] Start: 01-13-2024 End: 01-13-2024 Patient encounter procedure 01/13/2024 8:15 AM EST Office Visit [facility] [address] [place] [address] Georges Valencia, PA-C [address] [place] [address] [address] [place] [address] incontinence [facility] Comment on above: incontinence Start: 12-29-2023 End: 12-29-2023 Patient encounter procedure 12/29/2023 9:00 AM EDT Appointment [facility] Physical Therapy [address] [place] [id number] Tamar Silveira, PT [place] [facility] Physical Therapy Comment on above: NEEDLING Start: 12-15-2023 End: 12-15-2023 Patient encounter procedure 12/15/2023 9:00 AM EDT Appointment [facility] Physical Therapy [address] [place] [address] Tamar Silveira, PT [place] [facility] Physical Therapy Comment on above: NEEDLING Start: 12-01-2023 End: 12-01-2023 Patient encounter procedure 12/01/2023 9:45 AM EDT Appointment [facility] Physical Therapy [address] [place] [phone] Tamar Silveira, PT ANTHONYLING [facility] Physical Therapy Comment on above: NEEDLING Start: 11-01-2023 Influenza vaccination Influenza Vacc ine [facility] Start: 10-08-2023 End: 10-08-2023 Patient encounter procedure 10/08/2023 9:00 AM EDT Office Visit [facility] [address] [facility] [address] [place] [address] Dwayne Khoury MD [address], [facility] [address] [place] [address] [facility] Start: 10-01-2023 Influenza vaccination Flu vaccine (# 1) [facility] Start: 09-01-2023 End: 09-01-2023 Patient encounter procedure 09/01/2023 10:30 AM EDT Appointment [facility] Physical Therapy [address] [place] [phone] Osito Rowan [facility] Start: 08-26-2023 End: 08-26-2023 Patient encounter procedure 08/26/2023 2:30 PM EDT Appointment [facility] Therapy [address] [place] [phone] Kofi Villegas, PT [facility] Start: 08-18-2023 End: 08-18-2023 Patient encounter procedure 08/18/2023 9:45 AM EDT Appointment [facility] Physical Therapy [address] [place], [place] [phone] Osito Rowan [facility] Start: 08-11-2023 End: 08-11-2023 Patient encounter procedure 08/11/2023 1:15 PM EDT Appointment [facility] Physical Therapy [address] [place], [place] [phone] Jan Olmstead, PT DRY [place] [facility] Physical Therapy Comment on above: DRY [place] Start: 08-04-2023 End: 08-04-2023 Patient encounter procedure 08/04/2023 4:15 PM EDT Appointment [facility] Physical Therapy [address] [place], [place] [phone] Osito Rowan [facility] Start: 06-03-2023 End: 06-03-2023 Patient encounter procedure 06/03/2023 3:30 PM EDT Appointment [facility] Physical Therapy [address] [place], [place] [phone] Osito Rowan [facility] Start: 06-02-2023 End: 06-02-2023 Patient encounter procedure [facility] Comment on above: DRY NEEDLING- dont m ove coordinates with son's appt Start: 05-23-2023 Hepatitis B vaccine (3 of 3 - Hep B Twinrix 3-dose series) Hepatitis B vaccine (3 of 3 - Hep B Twinrix 3-dose series) [facility] Start: 05-20-2023 End: 05-20-2023 Patient encounter procedure 05/20/2023 3:15 PM EDT Appointment [facility] Therapy [address] [place] [phone] Rojas Altamirano PTA [facility] Start: 05-19-2023 End: 05-19-2023 Patient encounter procedure 05/19/2023 12:45 PM EDT Appointment [facility] [address] [place], [place] [phone] Rebecca Skinner, PT DRY NEEDLING- dont move coordinates with son's apptDRY NEEDLING [facility] Physical Therapy Comment on above: DRY NEEDLING- dont m ove coordinates with son's apptDRY [place] Start: 05-05-2023 End: 05-05-2023 Patient encounter procedure [facility] Comment on above: DRY NEEDLING DRY NEEDLING- césart keith gibson coordinates with son's appt Start: 05-03-2023 Urine screening for protein Urine Microalbumin [facility] Start: 04-28-2023 End: 04-28-2023 Patient encounter procedure 04/28/2023 10:45 AM EST Office Visit [facility] [address] [place] [phone] Gaurav Sellers PA [address] [place], [place] [phone] [facility] Start: 04-21-2023 End: 04-21-2023 Patient encounter procedure [facility] Physical [facility] Comment on above: DRY NEEDLING DRY NEEDLING- césarkhalif keith gibson coordinates with son's appt Start: 04-07-2023 End: 04-07-2023 Patient encounter procedure 04/07/2023 2:15 PM EST Appointment [facility] Therapy [address] [place], [place] [phone] Rebecca Skinner PT DRY [place] [facility] Physical Therapy Comment on above: DRY [place] Start: 03-27-2023 End: 03-27-2023 Admission to same day surgery center 03/27/2023 1:27 PM EST - 03/27/2023 1:33 PM EST Surgery [facility] [address] [place] [phone] Pete Silver MD [address] [place], [place] [phone] INJECTION BLOCK SACROILIAC JOINT [75366 (CPT )] [facility] Comment on above: INJECTION BLOCK SACR OILIAC JOINT [08469 (CPT )] Start: 03-27-2023 End: 03-27-2023 Inject si joint arthrgrphy&/anes/stero id w/monika INJECTION BLOCK SACROILIAC JOINT Disorder of sacrum 03/27/2023 1:27 PM EST [facility] Start: 03-27-2023 Subsequent hospital visit by physician 03/27/2023 1:27 PM EST Hospital Encounter [facility] [address] [place] [phone] Pete Silver MD [address] [place] [address] [facility] Start: 03-24-2023 End: 03-24-2023 Patient encounter procedure 03/24/2023 2:15 PM EST Appointment [facility] Physical Therapy [address] [place], [place] [phone] Rebecca Skinner, PT DRY [place] [facility] Physical Therapy Comment on above: DRY [place]LING Start: 03-19-2023 [facility] Start: 03-16-2023 End: 03-16-2023 Patient encounter procedure 03/16/2023 11:45 AM EST Appointment [facility] M[facility]ogram DEXA [address] [place] [phone] [facility] Start: 03-10-2023 End: 03-10-2023 Patient encounter procedure 03/10/2023 2:30 PM EST Appointment [facility] Therapy [address] [place] [phone] Rebecca Skinner, PT [facility] Start: 09-30-2022 Influenza vaccination Flu vaccine (# 1) [facility] Start: 10-31-2021 Influenza vaccination Flu vaccine (# 1) [facility] Start: 09-03-2021 DTaP,Tdap and Td Vaccines (1 - Tdap) DTaP,Tdap and Td Vaccines (1 - Tdap) [facility] Start: 09-03-2021 DTaP/Tdap/Td vaccine (1 - Tdap) DTaP/Tdap/Td vaccine (1 - Tdap) [facility] Start: 05-02-2021 Depression Screening Depression Scre [facility] Start: 2020 Lipid panel Lipids [facility] Start: 01-04-2020 Diabetic foot examination Diabetic Foot Exam [facility] Start: 09-25-2015 Diabetes screen Diabetes screen [facility] Start: 2010 Screening for malignant neoplasm of cervix [facility] Start: 2001 Screening for malignant neoplasm of cervix Pap smear [facility] Start: 09-25-1999 DTaP/Tdap/Td vaccine (1 - Tdap) DTaP/Tdap/Td vaccine (1 - Tdap) [facility] Start: 1998 Adult BMI Follow Up Plan Adult BMI Follow Up Plan [facility] Start: 1998 Hepatitis C screening Hepatitis C sc reen [facility] Start: 09-25-1995 HIV screening HIV screen [facility] Start: 1993 Varicella vaccine (1 of 2 - 13+ 2-dose series) Varicella vaccine (1 of 2 - 13+ 2-dose series) [facility] Start: 1992 Depression Screen Depression Screen [facility] Start: 1992 Depression Screening Depression Scre [facility] Start: 1990 Lipid panel Lipids [facility] Start: 1981 Varicella vaccine (1 of 2 - 2-dose childhood series) Varicella vaccine (1 of 2 - 2-dose childhood series) [facility] Start: 03-27-1981 COVID-19 Vaccine (#1) COVID-19 Vacci ne (#1) [facility] Start: 1980 Glaucoma screening Diabetic Op hthalmology Exam [facility] Start: 1980 Hepatitis B vaccine (1 of 3 - 3-dose series) Hepatitis B vaccine (1 of 3 - 3-dose series) [facility] Inject si joint arthrgrphy&/anes/stero id w/monika INJECTION BLOCK SACROILIAC JOINT Disorder of sacrum [facility] Njx dx/ther agt pvrt facet jt lmbr/sac 1 level INJECTION BLOCK NERVE MEDIAL BRANCH Lumbosacral spondylosis without myelopathy [facility] Immunizations Immunization Date Immunization Notes Care Provider Fa kristianty 12-22-2022 influenza virus vaccine, unspecified formulation Deepika Robledo MD Work Phone: [facility] 12-19-2018 influenza, injectabl e, quadrivalent, preservative free Argenis Storm RN [facility] 12-02-2017 influenza, injectabl e, quadrivalent, preservative free Argenis Storm RN [facility] 12-02-2017 pneumococcal conjuga te vaccine, 13 valent Argenis Storm RN [facility] 10-10-2016 influenza virus vaccine, unspecified formulation Argenis Storm RN [facility] 12-19-2013 influenza virus vaccine, live, attenuated, for intranasal use Argenis Storm RN [facility] 12-03-2012 influenza virus vaccine, whole virus Argenis Storm RN [facility] 12-29-2011 influenza virus vaccine, whole virus Argenis Storm RN [facility] 12-23-2010 influenza virus vaccine, whole virus Argenis Storm RN [facility] 12-18-2008 influenza virus vaccine, whole virus Argenis Storm RN [facility] Payers Date Payer Category Payer Unknown 2021 Self-pay [id number] 2002 Medicaid [employer] [id number] 2002-Present [phone] [address] [id number] [id number] 1980 Unknown [id number] 2..840.1.688124.3.579.2.593 1980 Unknown [id number] 2..840.1.827587.3.579.2.593 1980 Unknown [id number] 2..840.1.080886.3.579.2.593 1980 Unknown [id number] 2.16.840.1.032387.3.579.2.593 1980 Unknown [id number] 2.16.840.1.965860.3.579.2.727 1980 Unknown [id number] 2.16.840.1.618451.3.579.2.1286 1980 Unknown [id number] 2.16.840.1.961322.3.579.2.128 1980 Unknown [id number] 2.16.840.1.875235.3.579.2.128 1980 Unknown [id number] 2.16.840.1.365376.3.579.2.1285 1980 Unknown [id number] 2.16.840.1.368398.3.579.2.196 1980 Unknown [id number] 2.16840.1.542761.3.579.2.1258 1980 Unknown [id number] 2.16.840.1.744143.3.579.2.1258 1980 Unknown [id number] 2.16.840.1.640724.3.579.2.1258 1980 Unknown [id number] 2.16.840.1.254686.3.579.2.9 1980 Unknown [id number] 2.16840.1.448694.3.579.2.1258 1980 Unknown [id number] 2.16.840.1.722850.3.579.2.173 1980 Unknown [id number] 2.16840.1.567109.3.579.2.173 1980 Unknown [id number] 2.16840.1.672528.3.579.2.173 1980 Unknown [id number] 2.16.840.1.155180.3.579.2.173 1980 Unknown [id number] 2.16.840.1.829716.3.579.2. 1980 Unknown [id number] 2.16.840.1.836407.3.579.2. 1980 Unknown [id number] 2.16.840.1.228557.3.579.2. 1980 Unknown [id number] 2.16.840.1.719973.3.579.2. 1980 Unknown [id number] 2.16.840.1.518566.3.579.2. 1980 Unknown [id number] 2.16.840.1.480190.3.579.2. 1980 Unknown [id number] 2.16.840.1.736026.3.579.2. 1980 Unknown [id number] 2.16840.1.788576.3.579.2. 1980 Unknown [id number] 2.16840.1.553864.3.579.2. 1980 Unknown [id number] 2.16840.1.985997.3.579.2. 1980 Unknown [id number] 2.16.840.1.790875.3.579.2. 1980 Unknown [id number] 2.16840.1.032674.3.579.2. 1980 Unknown [id number] 2.16.840.1.260558.3.579.2. 1980 Unknown [id number] 2.16.840.1.875910.3.579.2. 1980 Unknown [id number] 2.16.840.1.251619.3.579.2. 1980 Unknown [id number] 2.16.840.1.110784.3.579.2. 1980 Unknown [id number] 2.16840.1.842616.3.579.2. 1980 Unknown [id number] 2.16.840.1.325001.3.579.2. 1980 Unknown [id number] 2.16.840.1.044105.3.579.2. 1980 Unknown [id number] 2.16.840.1.042180.3.579.2. 1980 Unknown [id number] 2.16.840.1.252476.3.579.2. 1980 Unknown [id number] 2.16840.1.941164.3.579.2. 1980 Unknown [id number] 2.16840.1.744704.3.579.2. 1980 Unknown [id number] 2.840.1.931796.3.579.2. 1980 Unknown [id number] 2.840.1.769578.3.579.2. 1980 Unknown [id number] 2.840.1.937612.3.579.2. 1980 Unknown [id number] 2.840.1.192079.3.579.2. 1980 Unknown [id number] 2.840.1.558258.3.579.2. 1980 Unknown [id number] 2.840.1.552240.3.579.2.1285 1980 Unknown [id number] 2.840.1.875197.3.579.2.1285 1980 Unknown [id number] 2.16840.1.142120.3.579.2.1285 1980 Unknown [id number] 2.16840.1.014387.3.579.2.1285 1980 Unknown [id number] 2.16840.1.108686.3.579.2.1286 1980 Unknown [id number] 2.16.840.1.105306.3.579.2.1286 1980 Unknown [id number] 2.16.840.1.028377.3.579.2.1286 1959 Medicaid [id number] Unknown [id number] 2.16.840.1.878564.3.579.2.531 Unknown [id number] 2.16.840.1.998584.3.579.2.531 Unknown [id number] 2.16.840.1.168430.3.579.2.531 Social History Date Type Detail Facility Start: 09-02-2017 End: 11-11-2023 Tobacco smoking status WIIS Never smoked tobacco [employer] Start: 09-02-2017 End: 11-11-2023 Tobacco use and exposure Smokeless tobacco non-user [email or web address] Phone: Start: 10-11-2021 End: 11-11-2023 Alcohol intake Current non-drinker of alcohol (finding) [email or web address] Phone: Start: 1980 Sex Assigned At Not on file B [facility] [employer] Phone: Start: 10-01-2021 End: 10-22-2021 Exposure to SARS-CoV-2 (event) Not sure [email or web address] Phone: Start: 10-11-2021 End: 11-11-2023 Sex Assigned At [facility] Tobacco smoking status Never [facility] Start: 10-11-2021 End: 11-11-2023 History of Social function [facility] Start: 1980 Sex Assigned At Female F [facility] How often to you hav e a drink containing alcohol? Never [employer] [facility] Medical Equipment Procedure Code Equipment Code Equipment Origin al Text Equipment Identifier Dates [place]ut 5.5mm 2 Ft Crkscr Fbrwr Shldr 3 Pk 14.7mm Strl Ea=Bill-Only Rpl [id number] - [id number] Start: 05-15-2022 Use to test BLOO D SUGAR TWICE DAILY [id number] Start: 05-28-2020 Use to test BLOO D SUGAR TWICE DAILY, Diagnosis: E11.9 [id number] Start: 03-08-2020 Clinical Notes 10-22-2021 to 10-20-2023 Jan Olmstead, PT - 10/20/2023 9:45 AM EDFilomena Yanez - 09/22/2023 1:15 PM EDKofi Lucero, PT - 08/26/2023 2:30 PM Filomena Nassar - 08/21/2023 10:45 AM EDTPatient InstructionsAttachments Note Date & Type Note Facility 10-20-2023 History of Presen t illness Narrative [facility] Outpatient Physical Therapy Daily Note Patient: Karma Candelaria : 1980 CSN #: [id number] Referring Physician: Shawna Mcfadden DO Date: 10/20/2023 Treatment Diagnosis: LBP, cervical spine pain Onset Date: 02/18/23 PT Insurance Information: [employer] Plan Total # of Visits Approved: 32 Per [...] the cervical area and her LB area.-met Jail Goals Time Frame for Neck Skewer Goals : 6 visits [facility] Goal 1: Pt will be independent and compliant with exercise while maintaining improved posture 50% of the time - not met [facility] Skewer Goal 2: Pt will be able to perform full cervical ROM without increase complaints of baseline pain with initiation to demonstrate imporved control of pain -NOT MET: continued cervical spine pain. Neck Skewer Goal 3: Pt will report 40% improvement in overall complaints and improved tolerance to her job tasks - 40% improved. Neck Skewer Goal 4: Pt kvng UE strength will be 5/5 without increasing pain complaints to assist in tolerance of lifting and carrying -PARTIALLY MET 4+/5 grossly. Minutes Tracking: Time In: 45 Time Out: 1030 Minutes: 45 Timed Code Treatment Minutes: 43 Minutes Jan Olmstead PT, DPT, OCS, Cert. DN Date: 10/20/2023 documented in this encounter [facility] 09-22-2023 History of Presen t [...] next appt. documented in this encounter [facility] 08-26-2023 History of Presen t illness Narrative [facility] Outpatient Physical Therapy Daily Note Patient: Karma Candelaria : 1980 CSN #: [id number] Referring Physician: Shawna Mcfadden DO Date: 08/26/2023 Diagnosis: Z76.89 - Persons encountering health services in other specified circumstances Treatment Diagnosis: pain in cervical and LB Onset Date: 02/18/23 PT Insurance Information: [employer] Total # of Visits Approved: 24 Per [...] the cervical area and her LB area.-met [facility] Skewer Goals Time Frame for Neck Skewer Goals : 6 visits Jail Goal 1: Pt will be independent and compliant with exercise while maintaining improved posture 50% of the time. Neck Skewer Goal 2: Pt will be able to perform full cervical ROM without increase complaints of baseline pain with initiation to demonstrate imporved control of pain. Jail Goal 3: Pt will report 40% improvement in overall complaints and improved tolerance to her job tasks. Minutes Tracking: Time In: 1430 Time Out: 1500 Minutes: 30 Timed Code Treatment Minutes: 29 Minutes Kofi Villegas, PT, DPT Date: 08/26/2023 documented in this encounter [facility] 08-21-2023 History of Presen t illness Narrative Physical Therapy Disregard the no show note on 08/17. This was added in error. [facility] Outpatient Physical Therapy Daily Note Patient: Karma Candelaria : 1980 CSN #: [id number] Referring Physician: Shawna Mcfadden DO Date: 08/21/2023 Treatment Diagnosis: pain in cervical and LB Onset Date: 02/18/23 PT Insurance Information: [employer] Total # of Visits Approved: 24 Per [...] the cervical area and her LB area. Neck Skewer Goals Time Frame for Neck Skewer Goals : 6 visits Jail Goal 1: Pt will be independent and compliant with exercise while maintaining improved posture 50% of the time. Neck Skewer Goal 2: Pt will be able to perform full cervical ROM without increase complaints of baseline pain with initiation to demonstrate imporved control of pain. Neck Skewer Goal 3: Pt will report 40% improvement in overall complaints and improved tolerance to her job tasks. Jail Goal 4: Pt kvng UE strength will be 5/5 without increasing pain complaints to assist in tolerance of lifting and carrying. Minutes Tracking: Time In: 1045 Time Out: 1116 Minutes: 31 Timed Code Treatment Minutes: 29 Minutes Jan Olmstead PT, DPT Date: 08/21/2023 documented in this encounter [facility] 08-11-2023 History of Presen t illness Narrative [facility] Outpatient Physical Therapy Daily Note Patient: Karma Candelaria : 1980 CSN #: [id number] Referring Physician: Shawna Mcfadden DO Date: 08/11/2023 Diagnosis: Z76.89 - Persons encountering health services in other specified circumstances Treatment Diagnosis: pain in cervical and LB Onset Date: 02/18/23 PT Insurance Information: [facility] Total # of Visits Approved: 24 [...] the cervical area and her LB area. Neck Skewer Goals Time Frame for Jail Goals : 6 visits Jail Goal 1: Pt will be independent and compliant with exercise while maintaining improved posture 50% of the time. Jail Goal 2: Pt will be able to perform full cervical ROM without increase complaints of baseline pain with initiation to demonstrate imporved control of pain. Neck Skewer Goal 3: Pt will report 40% improvement in overall complaints and improved tolerance to her job tasks. Neck Skewer Goal 4: Pt kvng UE strength will be 5/5 without increasing pain complaints to assist in tolerance of lifting and carrying. Minutes Tracking: Time In: 1330 Time Out: 1400 Minutes: 30 Timed Code Treatment Minutes: 28 Minutes Jan Olmstead, PT, DPT Date: 08/11/2023 documented in this encounter [facility] 07-14-2023 History of Presen t illness Narrative Physical Therapy [facility] Inpatient/Observation/Outpatient Rehabilitation Date: 07/14/2023 Patient [...] does not require skilled services due to: Therapist/Client Care Manager will attempt to see this patient, at our earliest opportunity. Filomena Raphael Date: 07/14/2023 documented in this encounter [facility] 06-02-2023 History of Presen t [...] Year discontinued? N/a Are you of Ashkenazi Denominational decent? no Family history of cancer: relation [...] or lymphadenopathy. I reviewed notes from her bottle gauger dated 05/05/2023, imaging including mammogram and ultrasound dated 03/16/2023 and 03/25/2023, history form dated 06/02/2023. Past Medical History Past Medical History: Diagnosis Date Anxiety Asthma Back pain Bipolar 1 disorder ([facility]) Breast disorder enlarged lymph nodes in both breast Carpal tunnel syndrome Chronic pain disorder Deep vein thrombosis ([facility]) blood clot in left arm Dental disease [...] night 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 ([facility]) 11/10/2017 Visual impairment Past Surgical History Past Surgical History: Procedure Laterality Date ANKLE SURGERY Left x2 ARTHROSCOPY SHOULDER WITH ROTATOR CUFF REPAIR Right 05/15/2022 Performed by Chepe Ingram MD at [facility] DEBRIDEMENT Right 05/15/2022 Performed by Chepe Ingram MD at [facility] DECOMPRESSION OF SUBACROMIAL SPACE WITH PARTIAL ACROMIOPLASTY Right 05/15/2022 Performed by Chepe Ingram MD at [facility] INJECTION BLOCK EPIDURAL STEROID LUMBAR/SACRAL: L 4/5 WU N/A 04/22/2021 Performed by Pete Silver MD at [facility] INJECTION BLOCK SACROILIAC JOINT Left [...] 01/09/2023 Performed by [facility] [facility] LAPAROSCOPIC CHOLECYSTECTOMY N/A 09/16/2016 Performed by Juan Ramon Jean MD at [facility] LIVER BIOPSY EMA PROCEDURE Right 05/15/2022 Performed by Chepe Ingram MD at [facility] NASAL SURGERY REPAIR HERNIA UMBILICAL 09/16/2016 Performed by Juan Ramon Jean MD at [facility] TONSILLECTOMY Family History Family History Problem [...] 5 blood-glucose meter (TRUE METRIX GLUCOSE METER) [facility], use to test BLOOD SUGAR TWICE DAILY, [...] , Rfl: lancets (UNILET LANCET) 28 gauge [facility], Use to test BLOOD SUGAR TWICE DAILY, [...] on 04/28/2023), Disp: 30 tablet, Rfl: 0 ehpsmtnn-ogky-HJ-calcium &mins (THERAGRAN-M) 9 mg iron-400 mcg tablet, [...] a bilateral screening mammogram on 03/16/2023 through [facility]. Her breast tissue is almost entirely fatty. There was a 1 cm mass in the posterior upper-outer right breast 17 cm from the nipple. They thought this was likely a lymph node but recommended that she return for additional imaging. She had the imaging done in [place]. They did a right diagnostic mammogram and [...] with any concerns. documented in this encounter [facility] 05-12-2023 Miscellaneous Notes Spoke with patient and scheduled with Dr. Robledo 4/2. Patient voiced understanding of appointment details. Patient was offered sooner dates but declined per her availability. documented in this encounter [facility] 05-12-2023 Telephone encounter Note Spoke with patient and scheduled with Dr. Robledo 4/2. Patient voiced understanding of appointment details. Patient was offered sooner dates but declined per her availability. [facility] 04-30-2023 Miscellaneous Notes Last Office Visit: 04/28/2023 Next Office Visit: Visit date not found Last Urine Drug Screen: No results found for: BENZOSCRN OARRS appropriate documented in this encounter [facility] 04-30-2023 Telephone encounter Note Last Office Visit: 04/28/2023 Next Office Visit: Visit date not found Last Urine Drug Screen: No results found for: BENZOSCRN OARRS appropriate [facility] 04-28-2023 History of Presen t illness Narrative [facility] [address] [place] [address] Patient: Karma Banegas Sex: female : 1980 [...] spine (09/2022 last visit for 11/05/22) at [facility] with no relief Back: 10/15/18 L4/5 WU [...] Anxiety Asthma Back pain Bipolar 1 disorder ([facility]) Breast disorder enlarged lymph nodes in both breast Carpal tunnel syndrome Chronic pain disorder Deep vein thrombosis ([facility]) blood clot in left arm Dental disease [...] night 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 ([facility]) 11/10/2017 Visual impairment Past Surgical History: Procedure Laterality Date ANKLE SURGERY Left x2 ARTHROSCOPY SHOULDER WITH ROTATOR CUFF REPAIR Right 05/15/2022 Performed by Chepe Ingram MD at [facility] DEBRIDEMENT Right 05/15/2022 Performed by hCepe Ingram MD at [facility] DECOMPRESSION OF SUBACROMIAL SPACE WITH PARTIAL ACROMIOPLASTY Right 05/15/2022 Performed by Chepe Ingram MD at [facility] INJECTION BLOCK EPIDURAL STEROID LUMBAR/SACRAL: L 4/5 WU N/A 04/22/2021 Performed by Pete Silver MD at [facility] INJECTION BLOCK SACROILIAC JOINT Left 03/27/2023 Performed by Pete Silver MD at [facility] INJECTION CERVICAL OR THORACIC EPIDURAL BLOCK WITH STEROIDS: C67 WU N/A 01/29/2018 Performed by Pete Silver MD at [facility] INJECTION LUMBAR OR SACRAL EPIDURAL BLOCK WITH STEROIDS: L45 WU N/A 10/15/2018 Performed by Pete Silver MD at [facility] INJECTION MEDIAL BRANCH NERVE BLOCK: bilat L45 51 Bilateral 07/30/2018 Performed by Pete Silver MD at [facility] SPINE TRANSFORAMINAL: left C 5,6 Nroot Left 01/09/2023 Performed by Pete Silver MD at [facility] LAPAROSCOPIC CHOLECYSTECTOMY N/A 09/16/2016 Performed by Juan Ramon Jean MD at [facility] LIVER BIOPSY EMA PROCEDURE Right 05/15/2022 Performed by Chepe Ingram MD at [facility] NASAL SURGERY REPAIR HERNIA UMBILICAL 09/16/2016 Performed by Juan Ramon Jean MD at [facility] TONSILLECTOMY Allergies Allergen Reactions Metformin Severe [...] Hodge 04/30/23 1141 documented in this encounter [facility] 04-28-2023 Instructions Pegcosta Conrad CNA - 04/28/2023 10:45 AM EST [...] nearest emergency room. documented in this encounter [facility] 04-20-2023 Hospital Discharg e instructions Keith Urbina APRN - CNP - 04/20/2023 1:50 PM EST Increase fluid Tylenol Motrin for cough Continue home medications The following attachments cannot be sent through Care Everywhere.Head Injury: Closed: General Info (Chinese)Cervical Strain (Chinese)documented in this encounter [facility] 03-31-2023 Miscellaneous Notes Patient calls [...] medications prescribed to someone other than her. Crime Analyst reiterated this to patient. Patient's pharmacy was confirmed with her. Order pended for review and signature. [facility] Telephone encounter Note Patient calls today [...] are prescribed to someone other than her. [facility] 03-31-2023 Telephone encounter Note Is she still taking prozac? What dosage? Any other antidepressants? [facility] 03-31-2023 Telephone encounter Note Call placed to patient to confirm whether or not she is taking Prozac or other antidepressants. Patient states she is taking 40 mg Prozac daily. That is the only antidepressant that she takes. She is prescribed Latuda and Lamictal to treat Bipolar. [employer] 03-31-2023 Telephone encounter Note Can try cymbalta 30mg once daily [facility] 03-31-2023 Telephone encounter Note Call placed to patient to inform her of provider's response. Patient is also educated not to take medications that are prescribed to someone other than her. Patient voices that she is aware that she should not be taking medications prescribed to someone other than her. Crime Analyst reiterated this to patient. Patient's pharmacy was confirmed with her. Order pended for review and signature. [facility] 03-05-2023 Evaluation note Encounter Date Diagnosis Assessment [...] was counseling done by myself, Rhina ROBERTSON. [employer] Other 01-01-2024 Hospital Discharge instructions* Discharge Instructions* Sil Sullivan DO - 03/02/2023 7:49 PM EST Please follow-up with your GI doctor, trial enema at home, return to the ER for worsening abdominalpain, inability to pass gas, or nausea, vomiting * Attachments The following attachments cannot be sent through Care Everywhere. * Constipation (Chinese) [facility] Miscellaneous Notes* Telephone Encounter - Argenis [...] when she was under his care in [place]. She is currently taking Meloxicam that helps [...] She states whatever . [facility] encounter Note* Telephone Encounter [...] when she was under his care in [place]. She is currently taking Meloxicam that helps [...] add Dr. Silver on the note. PVU. [employer] [facility]12-22-2023 Telephone encounter Note* Telephone Encounter - Pete Silver MD - 02/20/2023 10:04 AM EST Discussed with nurse, I agree with Fartun's treatment plan going forward. [employer]12-22-2023 Telephone encounter Note* Telephone Encounter - UMESH Hodge - 02/20/2023 10:04 AM EST No Rx for tramadol. I have never written prescription for bra so I would not know how to proceed with anything like that. [employer]12-22-2023 Telephone encounter Note* Telephone Encounter - Argenis Storm RN - 02/20/2023 10:04 AM EST Patient aware of response. She states whatever . [employer]12-20-2023 Evaluation note* Encounter Date Diagnosis Assessment Notes Treatment Notes Treatment Clinical Notes Jan, Constipation, unspecified constipation type (ICD-10 - K59.00) Jan, Constipation (ICD-10 - K59.00) [employer] Other 12-12-2023 Miscellaneous Notes* Telephone Encounter - [...] and has f/u appt [id number] Telephone encounter Note* Telephone Encounter - Margaux Olea CST - 02/10/2023 8:18 AM EST Received denial letter for an SI Inj. It is noted in prior requests, the member's chronic pain is related to discogenic causes with improvement in symptoms with shots directed the discogenic disorder. It is not noted why the source of the chronic pain is now related to sacroiliac joint. [id number] Telephone encounter Note* Telephone Encounter - UMESH [...] sufficient reason to deny the current request. [employer] [id number] Telephone encounter Note* Telephone Encounter - Alfredito William - 02/10/2023 8:18 AM EST GOT APPROVAL [employer] [id number] Telephone encounter Note* Telephone Encounter - Maty Fulton RN - 02/10/2023 8:18 AM EST Pt is scheduled 03/27 for procedure and has f/u appt [employer] [id number] Evaluation note* Encounter Date Diagnosis Assessment Notes [...] R10.9) Jan, Rectal bleed (ICD-10 - K62.5) [employer] Other 11-16-2023 Evaluation note* Encounter Date Diagnosis [...] was counseling done by myself, Rhina ROBERTSON. [employer] Other 11-08-2023 Evaluation note* Encounter Date Diagnosis [...] HAVE PATIENT START DOCUSATE 3 CAPSULES DAILY. [employer] Other 06-29-2023 Evaluation note* Encounter Date Diagnosis Assessment Notes Treatment Notes Treatment Clinical Notes Jul, Obesity (ICD-10 - E66.9) Jul, BMI 34.0-34.9,adult (ICD-10 - Z68.34) Jul, Other Summary of Visi t: (A) discussed continuing to work on small goals until stress decreases and she has the energy to increase goals (B) discussed healhtier choices at [employer]- food blog reviewed (C) reviewed food storage tips for keeping produce fresh longer Patient set the following goals: - NEW: continue to choose sugar free beverages- not reviewed [employer] Other 05-30-2023 Evaluation note* Encounter Date Diagnosis [...] was counseling done by myself, Rhina ROBERTSON. [employer] Other 03-21-2023 Evaluation note* Encounter Date Diagnosis [...] was counseling done by myself, Rhina ROBERTSON. [employer] Other 02-07-2023 Evaluation note* Encounter Date Diagnosis [...] set the following goals: not reviewed today [employer] Other 02-07-2023 Evaluation note* Encounter Date Diagnosis [...] was counseling done by myself, Rhina ROBERTSON. [employer] Other 12-28-2022 Evaluation note* Encounter Date Diagnosis [...] patient set personal goal using given handout. [employer] Other 12-27-2022 Evaluation note* Encounter Date Diagnosis [...] was counseling done by myself, Rhina ROBERTSON. [employer] Other 12-01-2022 NotePROCEDURE: XR ANKLE LT MIN [...] Electronically authenticated by: ONEL CLARK Date: 2022-01-29 22:30[facility]12-01-2022 NotePROCEDURE: XR ANKLE LT MIN 3 V, [...] Electronically authenticated by: ONEL CLARK Date: 2022-01-29 22:30[facility]11-15-2022 Evaluation note* Encounter Date Diagnosis Assessment Notes [...] was counseling done by myself, Rhina ROBERTSON. [employer] Other 10-05-2022 Evaluation note* Encounter Date Diagnosis [...] was counseling done by myself, Rhina ROBERTSON. [employer] Other 08-30-2022 Evaluation note* Encounter Date Diagnosis Assessment Notes Treatment Notes Treatment Clinical Notes Sep, Fatty liver (ICD-10 - K76.0) ENCOURAGED WEIGHT LOSS Sep, Obesity (BMI 30-39.9) (ICD-10 - E66.9) [employer] Other 08-23-2022 Hospital Discharge instructions* Discharge Instructions* Stanley Almonte PA-C - 10/22/2021 2:03 PM EDT Follow-up with primary care doctor 7 to 10 days for reevaluation. Take Motrin 800 mg as directed with food. Start eardrops left ear as directed. Promptly return to emergency department for new, changing or worsening of symptoms or other concerns. [facility] [employer] Phone: evaluation + Plan note No data available for this section [facility]* Diagnosis Pilonidal cyst- Primary Pilonidal cyst without mention of abscess documented in this encounter [email or web address] Phone: evaluation note* Diagnosis Acute diffuse otitis externa of left ear- Primary documented in this encounter [facility] [employer] Phone: evaluation noteNo InformationNort [employer] Other Evaluation note* Diagnosis Constipation, unspecified constipation type- Primary documented in this encounter [facility] [employer] noteNo assessment information available [facility] Work Phone: Evaluation note* Diagnosis Closed head injury, initial encounter- Primary Fall due to slipping on ice or snow, initial encounter Acute cervical myofascial strain, initial encounter documented in this encounter [facility] [employer] note* Diagnosis Lumbosacral spondylosis without myelopathy- Primary [facility] this [facility] Diagnosis Mass of upper outer quadrant of right breast- Primary Abnormal mammogram Abnormal mammogram, unspecified Symptomatic mammary hypertrophy [facility] Diagnosis Onset Date Resolution Status ADHD acute BMI 36.0-36.9,adult acute Constipation acute Diabetes mellitus with hyperglycemia acute Fatty liver acute IBS (irritable bowel syndrome) acute Obesity acute Shifting sleep-work schedule, affecting sleep acute Constipation acute Elevated liver function tests acute Fatty liver acute IBS (irritable bowel syndrome) acute [facility] Work Phone: history general Narrative - Reported* Type Description Date Medical History PTSD Medical History DIVERTICULITOUS Surgical History 2 BACK INJECTIONS 2014 Surgical History LEFT ANKLE 2002 Surgical History CHOLECYSTECTOMY Hospitalization History SEE ABOVE [employer] Other Hisiyyj general Narrative - Reported* Type Description Date Medical History PTSD Medical History DIVERTICULITOUS Medical History bipolar Medical History ADHD Surgical History 2 BACK INJECTIONS 2014 Surgical History LEFT ANKLE 2002 Surgical History CHOLECYSTECTOMY Surgical History nasal surgery Hospitalization History SEE ABOVE [employer] [facility] [employer] Other Hisdbto general Narrative - Reported* Type Description Date Medical History PTSD Medical History DIVERTICULITOUS Medical History bipolar Medical History ADHD Surgical History 2 BACK INJECTIONS 2014 Surgical History LEFT ANKLE 2002 Surgical History CHOLECYSTECTOMY Surgical History nasal surgery Surgical History right Rotator surgery 05-15-22 Hospitalization History SEE ABOVE [employer] [facility] [employer] Other Hisiykq general Narrative - Reported* Type Description Date Medical History PTSD Medical History DIVERTICULITOUS Medical History bipolar Medical History ADHD Medical History rotator cuff tear Surgical History 2 BACK INJECTIONS 2014 Surgical History LEFT ANKLE 2002 Surgical History CHOLECYSTECTOMY Surgical History nasal surgery Surgical History right Rotator surgery 05-15-22 Hospitalization History SEE ABOVE [employer] Other [facility] general Narrative - Reported* Type Description Date Medical History PTSD Medical History DIVERTICULITOUS Medical History bipolar Medical History ADHD Medical History rotator cuff tear Surgical History 2 BACK INJECTIONS 2014 Surgical History LEFT ANKLE 2002 Surgical History CHOLECYSTECTOMY Surgical History nasal surgery Surgical History right Rotator surgery 05-15-22 Surgical History Neck injections/root burnt 12/31 Hospitalization History SEE ABOVE [employer] Other Hisqeqt general Narrative - Reported* Type Description Date Medical History PTSD Medical History DIVERTICULITOUS Medical History bipolar Medical History ADHD Medical History rotator cuff tear Surgical History 2 BACK INJECTIONS 2014 Surgical History LEFT ANKLE 2002 Surgical History CHOLECYSTECTOMY Surgical History nasal surgery Surgical History right Rotator surgery 05-15-22 Surgical History Neck injections/root burnt 12/31 Hospitalization History SEE ABOVE [facility] [employer] Other Hospital Discharge instructions* Attachments The following attachments cannot be sent through Care Everywhere. * Pilonidal Abscess (Chinese) documented in this encounterBON [facility] [employer] Work Phone: Hospital Discharge instructions No data available for this section [facility] HospitalInstructionsNot on filedocumented in this encounter [facility]InstructionsNot on filedocumented in this encounter [facility] SystemInstructionsNot on filedocumented in this encounter [facility] SystemInstructionsNot on filedocumented in this encounter [facility] System[facility]ructionsNot on filedocumented in this encounter [facility] System[facility] note No data available for this section [facility] HospitalReason for visit Narrative* Consultation (Routine) - Pending Review Specialty Diagnoses / Procedures Referred By Karla t Referred To Contact Breast Surgery Diagnoses Abnormal mammogram Carmen Fisher MD [address] [place] [id number] Ila Trevizo MD [address] [place] [phone] Referral ID Status Reason Start Date Expiration Date V isits Requested Visits Authorized [id number] Pending Review 05/06/2023 05/05/2024 1 1 [employer] System Summary Purpose Family History Relationship Condition Age at Onset Recorded Date/T basia father Diabetes mellitus Unknown Heart disease Unknown Not Specified Diabetes mellitus Unknown Relationship Condition Age at Onset Recorded Date/T basia father Diabetes mellitus Unknown Heart disease Unknown Not Specified Diabetes mellitus Unknown father Malignant neoplasm Unknown Unknown Diabetes mellitus Unknown Not Specified Malignant neoplasm Unknown Advance Directives Latest Code Status on [...] L45 51 Gaurav Sellers, UMESH [address] [place] [address] Referral ID Status Reason Start Date Expiration Date V isits Requested Visits Authorized [id number] Pending Review 04/28/2023 04/27/2024 1 1 Chief [...] DATE CREATED AUTHOR AUTHOR'S ORGANIZ ATION 01/18/2023 [facility] DATE CREATED AUTHOR AUTHOR'S ORGANIZ ATION 06/04/2023 [facility] DATE CREATED AUTHOR AUTHOR'S ORGANIZ ATION 08/03/2023 [facility] DATE CREATED AUTHOR AUTHOR'S ORGANIZ ATION 10/10/2023 [facility] DATE CREATED AUTHOR AUTHOR'S ORGANIZ ATION 11/24/2023 [facility] DATE CREATED AUTHOR AUTHOR'S ORGANIZ ATION 11/30/2023 [facility] DATE CREATED AUTHOR AUTHOR'S ORGANIZ ATION [facility]20[facility] DATE CREATED AUTHOR AUTHOR'S ORGANIZ ATION 12/22/2023 [facility] Reason for Visit (unrecogniz ed section and [...] Dispensed Refills Start Date End Da te ehcayxxu-tariakreb-kuheyb ortisone (CORTISPORIN) 3.5-22934-[address] 4 drops into the [...] Care Teams (unrecognized sec tion and content) Thread Winder Automatic Relationship Specialty Start Date End Date Shawna Mcfadden DO [address] [place] [address] PCP - General Family Medicine 10/12/21 Thread Winder Automatic Relationship Specialty Start Date End Date Shawna Mcfadden DO [address] [facility] [place] [address] PCP - General Family Medicine 10/12/21 Thread Winder Automatic Relationship Specialty Start Date End Date Shawna Mcfadden DO [address] [place] [address] PCP - General Family Medicine 10/12/21 Thread Winder Automatic Relationship Specialty Start Date End Date Shawna Mcfadden DO [address] [place] [address] PCP - General Family Medicine 05/02/22 Thread Winder Automatic Relationship Specialty Start Date End Date Shawna Mcfadden DO [address] [place] [address] PCP - General Family Medicine 10/12/21 Thread Winder Automatic Relationship Specialty Start Date End Date Shawna Mcfadden DO [address] [place], [place] [id number] PCP - General Family Medicine 05/02/22 Team [...] Care Provider Active Start: March 18, 2023 Thread Winder Automatic Relationship Specialty Start Date End Date Shawna Mcfadden DO [address] [place] [address] PCP - General Family Medicine 05/02/22 Thread Winder Automatic Relationship Specialty Start Date End Date Shawna Mcfadden DO [address] [place] [address] PCP - General Family Medicine 10/12/21 Thread Winder Automatic Relationship Specialty Start Date End Date Shawna Mcfadden DO [address] [place] [address] PCP - General Family Medicine 05/02/22 Thread Winder Automatic Relationship Specialty Start Date End Date Shawna Mcfadden DO [address] [place] [address] PCP - General Family Medicine 10/12/21 Thread Winder Automatic Relationship Specialty Start Date End Date Edwarhaider Shawnajack Chase DO [address] [place] [address] PCP - General Family Medicine 05/02/22 Thread Winder Automatic Relationship Specialty Start Date End Date Edwarhaider Shawnajack Chase DO [address] [place] [address] PCP - General Family Medicine 05/02/22 Team Status: Active Member Role Status Dates Rory Driver , [facility] Primary Care Provider Active Team Status: Inactive Member Role Status Dates Gayathri Adams APRN Attending Provider Active Start: May 21, 2023 End: May 21, 2023 Rory Driver , [facility] Primary Care Provider Active Start: May 21, 2023 End: May 21, 2023 Team Status: Inactive Member Role Status Dates Jan Garg APRN Attending Provider Active Start: May 21, 2023 End: May 21, 2023 Rory Driver , [facility] Primary Care Provider Active Start: May 21, 2023 End: May 21, 2023 Thread Winder Automatic Relationship Specialty Start Date End Date Vicky McfaddentyDO [address] [place] [address] PCP - General Family Medicine 10/12/21 Thread Winder Automatic Relationship Specialty Start Date End Date Shawna Mcfadden DO [address] [place] [address] PCP - General Family Medicine 10/12/21 Thread Winder Automatic Relationship Specialty Start Date End Date Loreto Mcneal APRN - SENIOR APPLICATIONS ANALYST [address] [facility] [place] [address] PCP - General 11/11/23 Thread Winder Automatic Relationship Specialty Start Date End Date Fredis LoretoCONCETTA monroe - JO ANN [address] [facility] [place] [address] PCP - General 11/11/23 Goals (unrecognized section [...] BE BASED ON THE PRIMARY CLINICAL RECORDS. [email or web address] provides no warranty or guarantee of the accuracy or completeness of information in this document.
[2024-01-08 05:33] LABS: Bilirubin Urine NEGATIVE (NEGATIVE); Blood Urine LARGE (NEGATIVE); Clarity Urine CLOUDY (CLEAR); Color Urine YELLOW (YELLOW); Glucose Urine UA >=1000 mg/dL (NEGATIVE); Ketones Urine NEGATIVE (NEGATIVE); Leukocyte Esterase Urine NEGATIVE (NEGATIVE); Nitrite Urine NEGATIVE (NEGATIVE); Protein Urine NEGATIVE (NEG/TRACE); Specific Gravity Urine 1.025 (1.005-1.025); Urobilinogen Urine 0.2 EU/dL (0.2-1.0)
[2024-01-08 05:50] LABS: RBC Urine >100 #/HPF (0-2); WBC Urine 0-2 #/HPF (NONE SEEN)
[2024-01-08 05:52] LABS: Bacteria Urine SMALL #/HPF (NONE SEEN); Cast Seen? NONE SEEN #/LPF (NONE SEEN); Crystals Seen? None Seen #/HPF (None Seen); Mucus Urine TRACE (NONE SEEN); Squamous Epithelial Cell Urine FEW #/LPF (NONE/RARE); Urine Culture Indicated YES
[2024-01-08] MEDS: HYDROCODONE/ACET 5-325 MG TABLET 2 TAB PO (06:21)
[2024-01-08] MEDS: TAMSULOSIN HCL 0.4 MG CAPSULE PO (06:27)
[2024-01-08 06:30] VITALS: BP 106/68
== END 2024-01-08 06:30 | disposition home or self-care (01) ==
PROVIDERS: Emergency Provider Emergency Medicine; PCP Nurse Practitioner Family
DX: N20.0 Calculus of kidney (principal); E11.9 Type 2 diabetes mellitus without complications; Z87.442 Personal history of urinary calculi
CPT/HCPCS: 36415; 74176; 80053; 81001; 85025; 87086; 87150; 96374; 96375; 99285; J1885; J2405

== ENCOUNTER 2024-01-10 16:46 | Emergency (ER) | payer OTHER, SELFPAY ==
--- OUTSIDE RECORDS SUMMARY | 2024-01-10 16:51 | XMS_ITS | CCD ---
Author Organization [facility] CliniSyla Care Team Providers Care Engraver Pantograph Name Role Phone Juan Ramon Jean Unavailable [...] Garg Unavailable DOMENICA OLIVA Primary Care Physician [phone] HILARY GRANADO Referring Unavailable HILARY GRANADO Attending Unavailable Rumschlag DO, Shawna Primary Care Provider Rumschviviane MARQUEZ, Shawna K Primary Care Provider [phone] MD Yo Blank Attending Provider Rumzandra DO [...] able RUMSCHLAG, SHAWNA K Referring Unavailable SERVICES, [facility] Primary Care Unava ilable Fredis HUMAN RESOURCES ADVISOR - MANAGER TECHNOLOGY, Loreto Primary Care [facility] ider Bk DALE, Ugo Stoddard Attending [...] Care Unavailable RUMSCHLAG, SHAWNA Referring Unavailable SERVICES, [facility] Primary Care Unava ilable SHAMMO, RORY Referring Unavailable RUMSCHLAG, SHAWNA K Primary Care Unavailable SHAMMO, RORY Referring Unavailable RUMSCHLAG, SHAWNA K Primary Care Unavailable PETE SILVER Attending Unavailable PETE SILVER Referring Unavailable RUMSCHLAG, SHAWNA K Primary Care Unavailable PETE SILVER Admitting Unavailable PETE SILVER Attending Unavailable RUMSCHLAG, SHAWNA K Referring Unavailable RUMSCHLAG, SHAWNA K Primary Care Unavailable JORGE, CARMEN Referring Unavailable SERVICES, [facility] Primary Care Unava ilable GAURAV SELLERS Attending Unavailable RUMSCHLAG, SHAWNA K Referring Unavailable RUMSCHLAG, SHAWNA K Primary Care Unavailable Allergies Allergy Classification Reported Allergen(s) Allergy Type Date of Onset Reaction(s) Facility Cephalosporins (antibiotic) (2 sources) Cephalexin Drug Allergy 7 Hives [facility] Serotonin Reuptake Inhibitors (SSRIs) (2 sources) [facility] (20 sources) cephalexin; Translations: [Keflex] Drug Allergy 3 hives [facility] Repository (4 sources) citalopram; Translations: [CeleXA] Drug Allergy 3 AOF, heart palpitation [facility] Repository (20 sources) Cephalexin; Translations: [CEPHALEXIN] Drug Allergy 7 Hives [facility] Work Phone: (20 sources) Citalopram; Translations: [CITALOPRAM] Drug Allergy 7 Hives, anaphylaxis [facility] (5 sources) metFORMIN Drug Allergy Unknown [employer] Other (20 sources) metFORMIN; Translations: [METFORMIN] Drug Allergy 3 Unknown, Unknown Reaction [employer] [facility] (10 sources) POISON DEVORAH EXTRACT; Translations: [POISON DEVORAH EXTRACT] Drug Allergy 3 [employer] [facility] (10 sources) Metformin And Related Propensity to adverse reactions to drug 4 [facility]See Comments[facility] Cephalexin Drug Allergy 4 [facility] Repository (1 source) Citalopram Drug Allergy 4 [facility] Repository (1 source) metFORMIN Drug Allergy 4 [facility] Repository Medications Current Medications Medication Drug Class(es) Dates Sig (Normalized) Sig (Original) [id number] 200 actuat albuterol 0.09 mg/actuat metered dose [...] Orally Once a day Active bifidobacterium animalis [id number] unt / lactobacillus acidophilus [id number] unt oral capsule (2 sources) take 1 [...] 19 blood-glucose meter (TRUE METRIX GLUCOSE METER) [facility] use to test BLOOD SUGAR TWICE [...] 12:00am Start: 04-09-2021 take 1 capsule by [facility] in the morning cholecalciferol, vitamin D3, 2,000 units capsule Take 1 capsule (2,000 Units total) by mouth in the morning. 0 04/09/2021 Active take 1 capsule by [facility] every twenty-four hours Vitamin D3 [...] / neomycin 3.5 mg/ml / polymyxin b 87990 unt/ml otic solution (1 source) Aminoglycoside Antibacterial, Polymyxin-class Antibacterial, Corticosteroid Start: 10-22-2021 End: 10-29-2021 zkivncfn-yhcqdnvfl-paqaoorcf isone (CORTISPORIN) 3.5-92004-[address] 4 drops into the [...] MOUTH NIGHTLY 30 tablet 0 07/16/2020 Active bwvbzsbb-hxgx-QQ-ca lcium &mins (THERAGRAN-M) 9 mg iron-400 mcg tablet (7 sources) reqdrhjc-sqbn-AY -c alcium &mins (THERAGRAN-M) 9 mg iron-400 [...] 30 days Jan, Active polyethylene glycol 3350 338521 mg / potassium chloride 2970 mg / sodium bicarbonate 6740 mg / sodium chloride 5860 mg / sodium sulfate 24619 mg powder for oral solution (2 sources) [...] Nausea, # 20 tab(s), Refills(s) 0, Pharmacy: [id number], 157, cm, 03/10/19 12:21:00 EST, Height/Length [...] Status: Ordered take 2 tablets by mo [facility] every six hours as needed tiZANidine (ZANAFLEX) 4 MG tablet Take 2 tablets by mouth every 6 hours as needed Active take 2 tablets by mo [facility] every twenty-four hours tiZANidine HCl 4 MG [...] May 21, 2023 11:36am polyethylene glycol 3350 73898 mg powder for oral solution (7 sources) [...] Anion gap [Moles/Vol] 10 mmol/L Normal 5-15 [facility] Comment on above: Performed By: #### C BCA, BMP, FEPR, 2276-4 #### [facility] ([id number]) [address], [address] [place] [address] Calcium [Mass/Vol] 8.9 mg/dL Normal 8.5-10.5 [facility] Comment on above: Performed By: #### C BCA, BMP, FEPR, 2276-4 #### [facility] ([id number]) [address], [address] [place] [address] Chloride [Moles/Vol] 106 mmol/L Normal 98-109 [facility] Comment on above: Performed By: #### C BCA, BMP, FEPR, 2276-4 #### [facility] ([id number]) [address] [place] [address] CO2 [Moles/Vol] 22 mmol/L Normal 22-32 [facility] Comment on above: Performed By: #### C BCA, BMP, FEPR, 2276-4 #### [facility] ([id number]) [address] [place] [address] Creatinine [Mass/Vol] 0.70 mg/dL Normal 0.40-1.00 [facility] Comment on above: Result Comment: METH OD TRACEABLE TO IDMS STANDARD Performed By: #### C BCA, BMP, FEPR, 6-4 #### [facility] ([id number]) [address] [place] [address] eGFR (CKD-EPI) NON-RACE DEPENDENT >90 Normal >59 [facility] Comment on above: Result Comment: Reported eGFR is based on the CKD-EPI 2020 equation that does not use a race coefficient. Performed By: #### C BCA, BMP, FEPR, 2275-4 #### [facility] ([id number]) [address] [place] [address] Glucose [Mass/Vol] 89 mg/dL Normal 65-99 [facility] Comment on above: Performed By: #### C BCA, BMP, FEPR, 2275-4 #### [facility] ([id number]) [address] [place] [address] Potassium [Moles/Vol] 4.2 mmol/L Normal 3.5-5.0 [facility] Comment on above: Performed By: #### C BCA, BMP, FEPR, 2275-4 #### [facility] ([id number]) [address] [place] [address] Sodium [Moles/Vol] 138 mmol/L Normal 134-146 [facility] Comment on above: Performed By: #### C BCA, BMP, FEPR, 2275-4 #### [facility] ([id number]) [address] [facility] [place] [address] Urea nitrogen [Mass/Vol] 18 mg/dL Normal 5-23 [facility] Comment on above: Performed By: #### C BCA, BMP, FEPR, 6-4 #### [facility] ([id number]) [address], [address] [place] [address] CBC AND AUTO DIFFon 10-21-20 24 ABSOLUTE BASOPHIL 0.0 X10E9/L Normal 0.0-0.2 [facility] Comment on above: Performed By: #### C BCA, BMP, FEPR, 2275-4 #### [facility] ([id number]) [address], [address] [place] [address] ABSOLUTE NEUTROPHIL 5.7 X10E9/L Normal 1.5-6.6 [facility] Comment on above: Performed By: #### C BCA, BMP, FEPR, 2275-4 #### [facility] ([id number]) [address], [address] [place] [address] Basophils/100 WBC (Bld) 0.4 % Normal [facility] Comment on above: Performed By: #### C BCA, BMP, FEPR, 2275-4 #### [facility] ([id number]) [address], [address] [place] [address] Eosinophils (Bld) [#/Vol] 0.1 10*3/uL Normal 0.0-0.4 [facility] Comment on above: Performed By: #### C BCA, BMP, FEPR, 2275-4 #### [facility] ([id number]) [address], [address] [place] [address] Eosinophils/100 WBC (Bld) 1.2 % Normal [facility] Comment on above: Performed By: #### C BCA, BMP, FEPR, 2275-4 #### [facility] ([id number]) [address], [address] [place] [address] Erythrocyte distribution width (RBC) [Ratio] 14.4 % Normal 11.5-15.0 [facility] Comment on above: Performed By: #### C BCA, BMP, FEPR, 2275-4 #### [facility] ([id number]) [address] [place] [address] Hematocrit (Bld) [Volume fraction] 37.4 % Normal 35-47 [facility] Comment on above: Performed By: #### C BCA, BMP, FEPR, 2275-4 #### [facility] ([id number]) [address] [place] [address] Hemoglobin (Bld) [Mass/Vol] 12.4 g/dL Normal 11.7-15.5 [facility] Comment on above: Performed By: #### C BCA, BMP, FEPR, 2275-4 #### [facility] ([id number]) [address] [place] [address] Lymphocytes (Bld) [#/Vol] 2.4 10*3/uL Normal 1.0-3.5 [facility] Comment on above: Performed By: #### C BCA, BMP, FEPR, 2275-4 #### [facility] ([id number]) [address] [place] [address] Lymphocytes/100 WBC (Bld) 28.1 % Normal [facility] Comment on above: Performed By: #### C BCA, BMP, FEPR, 2275-4 #### [facility] ([id number]) [address] [place] [address] MCH (RBC) [Entitic mass] 28.8 pg Normal 27-34 [facility] Comment on above: Performed By: #### C BCA, BMP, FEPR, 2275-4 #### [facility] ([id number]) [address] [place] [address] MCHC (RBC) [Mass/Vol] 33.1 g/dL Normal 32-36 [facility] Comment on above: Performed By: #### C BCA, BMP, FEPR, 2275-4 #### [facility] ([id number]) [address], [facility] [address] [place] [address] MCV (RBC) [Entitic vol] 87 fL Normal 80-100 [facility] Comment on above: Performed By: #### C BCA, BMP, FEPR, 2275-4 #### [facility] ([id number]) [address], [facility] [address] [place] [address] Monocytes (Bld) [#/Vol] 0.3 10*3/uL Normal 0-0.9 [facility] Comment on above: Performed By: #### C BCA, BMP, FEPR, 2275-4 #### [facility] ([id number]) [address] [address] [place] [address] Monocytes/100 WBC (Bld) 3.0 % Normal [facility] Comment on above: Performed By: #### C BCA, BMP, FEPR, 2275- #### [facility] ([id number]) [address], [facility] [address] [place] [address] Neutrophils/100 WBC (Bld) 67.3 % Normal [facility] Comment on above: Performed By: #### C BCA, BMP, FEPR, 2275- #### [facility] ([id number]) [address], [facility] [address] [place] [address] Platelet mean volume (Bld) [Entitic vol] 8.8 fL Normal 7-12 [facility] Comment on above: Performed By: #### C BCA, BMP, FEPR, 2275- #### [facility] ([id number]) [address] [address] [place] [address] Platelets (Bld) [#/Vol] 325 10*3/uL Normal 150-450 [facility] Comment on above: Performed By: #### C BCA, BMP, FEPR, 6-4 #### [facility] ([id number]) [address] [address] [place] [address] RBC COUNT 4.31 X10E12/L Normal 3.80-5.20 [facility] Comment on above: Performed By: #### C BCA, BMP, FEPR, 2275-4 #### [facility] ([id number]) [address] [address] WBC (Bld) [#/Vol] 8.4 10*3/uL Normal 4.0-11.0 [facility] Comment on above: Performed By: #### C BCA, BMP, FEPR, 4 #### [facility] ([id number]) [address] [address] [place] [address] FERRITINon 12-21-2023 Ferritin [Mass/Vol] 195 ng/mL Normal 11-307 [facility] Comment on above: Performed By: #### C BCA, CMP, 65452-6, TSHR #### [facility] ([id number]) [address] [address] [place] [address] IRON PROFILEon 12-21-2023 Iron [Mass/Vol] 53 ug/dL Normal 50-170 [facility] Comment on above: Performed By: #### C BCA, BMP, FEPR, 2275-4 #### [facility] ([id number]) [address] [address] [place] [address] IRON BINDING 374 ug/dL Normal 250-425 [facility] Comment on above: Performed By: #### C BCA, BMP, FEPR, 2275-4 #### [facility] ([id number]) [address] [address] [place] [address] IRON SATURATION 14 % SATURATION Low 15-50 [facility] Comment on above: Performed By: #### C BCA, BMP, FEPR, 6-4 #### [facility] ([id number]) [address] [place] [address] CT ABDOMEN PELVIS W IV CONTR Dar [...] significant stool or gas noted. Evidence of udzb-dt-igbyvolv diverticulosis of proximal sigmoid colon and descending [...] Zoë Nicole MD 10/07/23 Final result Normal [facility] Comp Metabolic Profon 2023 Albumin [Mass/Vol] 4.1 g/dL Normal 3.5-5.2 [facility] Comment on above: Performed By: #### C ACOSTA Schulz TROPI, CDP ####[facility] [place] , [place] [address] lab Director: Domenica Velázquez MD Albumin/Glob Ratio 1.4 Normal 1.0-2.5 [facility] Comment on above: Performed By: #### ACOSTA Virgen TROPI, CDP ####[facility] [place] [address] lab Director: Domenica Velázquez MD Alkaline Phos 85 U/L Normal 35-104 [facility] Comment on above: Performed By: #### C ACOSTA Schulz TROPI, CDP ####[address] , [place] [address] Lab Director: Domenica Velázquez MD ALT [Catalytic activity/Vol] 12 U/L Normal 5-33 [facility] Comment on above: Performed By: #### C P, LIP, TROPI, CDP ####[address] , [place] 0[address] Lab Director: Domenica Velázquez MD Anion gap [Moles/Vol] 11 mmol/L Normal 9-17 [facility] Comment on above: Performed By: #### C P, LIP, TROPI, CDP ####[address] , [place] [address] lab Director: Domenica Velázquez MD AST [Catalytic activity/Vol] 14 U/L Normal <32 [facility] Comment on above: Performed By: #### C P, LIP, TROPI, CDP ####[address] , [place] 27[address] Lab Director: Domenica Velázquez MD Bilirubin [Mass/Vol] 0.2 mg/dL Low 0.3-1.2 [facility] Comment on above: Performed By: #### C P, LIP, TROPI, CDP ####[address] [place] [address] Lab Director: Domenica Velázquez MD BUN/CRE Ratio 30 High 9-20 [facility] Comment on above: Performed By: #### C P, LIP, TROPI, CDP ####[address] , [place] [address] Lab Director: Domenica Velázquez MD Calcium [Mass/Vol] 8.8 mg/dL Normal 8.6-10.4 [facility] Comment on above: Performed By: #### C P, LIP, TROPI, CDP ####[address] , [place] 0[address] Lab Director: Domenica Velázquez MD Chloride [Moles/Vol] 103 mmol/L Normal 98-107 [facility] Comment on above: Performed By: #### C P, LIP, TROPI, CDP ####[address] , [place] [address] lab Director: Domenica Velázquez MD CO2 [Moles/Vol] 25 mmol/L Normal 20-31 [facility] Comment on above: Performed By: #### C P, LIP, TROPI, CDP ####[address] , [place] [address] lab Director: Domenica Velázquez MD Creatinine [Mass/Vol] 0.6 mg/dL Normal 0.5-0.9 [facility] Comment on above: Performed By: #### C P, LIP, TROPI, CDP ####[address] , [place] 78[address] lab Director: Domenica Velázquez MD GFR/1.73 sq M.predicted among non-blacks MDRD (S/P/Bld) [Vol rate/Area] mL/min/{1.73_m2} Normal >60 [facility] Comment on above: Result Comment: These [...] By: #### C P, LIP, TROPI, CDP ####[address] , [place] 5[address] lab Director: Domenica Velázquez MD Glucose [Mass/Vol] 92 mg/dL Normal 70-99 [facility] Comment on above: Performed By: #### C P, LIP, TROPI, CDP ####[address] , [place] [address] Lab Director: Domenica Velázquez MD Potassium [Moles/Vol] 3.6 mmol/L Low 3.7-5.3 [facility] Comment on above: Performed By: #### C P, LIP, TROPI, CDP ####[address] , [place] 6[address]83 Lab Director: Domenica Velázquez MD Protein [Mass/Vol] 7.0 g/dL Normal 6.4-8.3 [facility] Comment on above: Performed By: #### C P, LIP, TROPI, CDP ####[address] , [place] 46[address] Lab Director: Domenica Velázquez MD Sodium [Moles/Vol] 139 mmol/L Normal 135-144 [facility] Comment on above: Performed By: #### C P, LIP, TROPI, CDP ####[address] , [place] 0434[address] Lab Director: Domenica Velázquez MD Urea nitrogen [Mass/Vol] 18 mg/dL Normal 6-20 [facility] Comment on above: Performed By: #### C P, LIP, TROPI, CDP ####[address] [place] [address] Lab Director: Domenica Velázquez MD Lipaseon 10-07-2023 Lipase [Catalytic activity/Vol] 28 U/L Normal 13-60 [facility] Comment on above: Performed By: #### C P, LIP, TROPI, CDP ####[address] [place] [address] Lab Director: Domenica Velázquez MD Troponinon 10-07-2023 Troponin, High Sens <6 Normal 0-14 [facility] Comment on above: Result Comment: High Sensitivity Troponin values cannot be compared with other Troponin methodologies. Performed By: #### C P, LIP, TROPI, CDP ####[address] [place] [address] Lab Director: Domenica Velázquez MD CBC with Diffon 10-06-2023 Abs. Basophil 0.03 k/uL Normal 0.00-0.20 [facility] Comment on above: Performed By: #### C P, LIP, TROPI, CDP ####[address] , [place] [address])[phone] Director: Domenica Velázquez MD Abs.Imm.Granulocyte 0.03 k/uL Normal 0.00-0.30 [facility] Comment on above: Performed By: #### C P, LIP, TROPI, CDP ####[address] [place] [address])[phone] Director: Domenica Velázquez MD Abs.Neutrophil (Seg) 6.50 k/uL Normal 1.50-8.10 [facility] Comment on above: Performed By: #### C P, LIP, TROPI, CDP ####[address] , [place] [address])[phone] Director: Domenica Velázquez MD Basophils/100 WBC (Bld) 0 % Normal 0-2 [facility] Comment on above: Performed By: #### C P, LIP, TROPI, CDP ####[address] , [place] [address])[phone] Director: Domenica Velázquez MD Eosinophils (Bld) [#/Vol] 0.08 10*3/uL Normal 0.00-0.44 [facility] Comment on above: Performed By: #### C P, LIP, TROPI, CDP ####[address] , [facility]83[facility])[phone] Director: Domenica Velázquez MD Eosinophils/100 WBC (Bld) 1 % Normal 1-4 [facility] Comment on above: Performed By: #### C P, LIP, TROPI, CDP ####[address] , [place] [address] Lab Director: Domenica Velázquez MD Erythrocyte distribution width (RBC) [Ratio] 13.5 % Normal 11.8-14.4 [facility] Comment on above: Performed By: #### C P, LIP, TROPI, CDP ####[address] , [facility]83[facility])[phone] Director: Domenica Velázquez MD Hematocrit (Bld) [Volume fraction] 40.1 % Normal 36.3-47.1 [facility] Comment on above: Performed By: #### C P, LIP, TROPI, CDP ####[address] , [facility]83[facility])[phone] Director: Domenica Velázquez MD Hemoglobin (Bld) [Mass/Vol] 13.4 g/dL Normal 11.9-15.1 [facility] Comment on above: Performed By: #### C P, LIP, TROPI, CDP ####[address] , [place] [address])[phone] Director: Domenica Velázquez MD Immature granulocytes/100 WBC (Bld) 0 % Normal 0 [facility] Comment on above: Performed By: #### C P, LIP, TROPI, CDP ####[address] , [place] [address])[phone] Director: Domenica Velázquez MD Lymphocytes (Bld) [#/Vol] 2.41 10*3/uL Normal 1.10-3.70 [facility] Comment on above: Performed By: #### C P, LIP, TROPI, CDP ####[address] , [facility]83 Lab Director: Domenica Velázquez MD Lymphocytes/100 WBC (Bld) 25 % Normal 24-43 [facility] Comment on above: Performed By: #### C P, LIP, TROPI, CDP ####[address] , [facility]29([facility])[phone] Director: Domenica Velázquez MD MCH (RBC) [Entitic mass] 28.6 pg Normal 25.2-33.5 [facility] Comment on above: Performed By: #### C P, LIP, TROPI, CDP ####[address] , [facility]08([facility])[phone] Director: Domenica Velázquez MD MCHC (RBC) [Mass/Vol] 33.4 g/dL Normal 28.4-34.8 [facility] Comment on above: Performed By: #### C P, LIP, TROPI, CDP ####[address] , [facility]14([facility])[phone] Director: Domenica Velázquez MD MCV (RBC) [Entitic vol] 85.7 fL Normal 82.6-102.9 [facility] Comment on above: Performed By: #### C P, LIP, TROPI, CDP ####[address] , [facility]38([facility])[phone] Director: Domenica Velázquez MD Monocytes (Bld) [#/Vol] 0.69 10*3/uL Normal 0.10-1.20 [facility] Comment on above: Performed By: #### C P, LIP, TROPI, CDP ####[address] [place] [address] Lab Director: Domenica Velázquez MD Monocytes/100 WBC (Bld) 7 % Normal 3-12 [facility] Comment on above: Performed By: #### C P, LIP, TROPI, CDP ####[address] , [place] 545[address]83 Lab Director: Domenica Velázquez MD Neutrophil (Seg) 67 % High 36-65 [facility] Comment on above: Performed By: #### C P, LIP, TROPI, CDP ####[address] , [place] 514[address] Lab Director: Domenica Velázquez MD NRBC Automated 0.0 per 100 WBC Normal 0.0 [facility] Comment on above: Performed By: #### C P, LIP, TROPI, CDP ####[address] , [place] [id number])[phone] Director: Domenica Velázquez MD Platelet mean volume (Bld) [Entitic vol] 10.5 fL Normal 8.1-13.5 [facility] Comment on above: Performed By: #### C P, LIP, TROPI, CDP ####[address] , [facility]83[facility])[phone] Director: Domenica Velázquez MD Platelets (Bld) [#/Vol] 292 10*3/uL Normal 138-453 [facility] Comment on above: Performed By: #### C P, LIP, TROPI, CDP ####[address] , [place] [phone] Director: Domenica Velázquez MD RBC (Bld) [#/Vol] 4.68 10*6/uL Normal 3.95-5.11 [facility] Comment on above: Performed By: #### C P, LIP, TROPI, CDP ####[address] , [place] [address])[phone] Director: Domenica Velázquez MD WBC (Bld) [#/Vol] 9.7 10*3/uL Normal 3.5-11.3 [facility] Comment on above: Performed By: #### C P, LIP, TROPI, CDP ####[address] [place] [address] Lab Director: Domenica Velázquez MD Basic Metabolic Profon 10-04 Anion gap [Moles/Vol] 10 mmol/L Normal 9-17 [facility] Comment on above: Performed By: #### C DP, BMP, TROPI, DIME #### [facility] [address] [place], [place] [id number] Properties Supervisor: Domenica Velázquez MD BUN/CRE Ratio 23 High 9-20 [facility] Comment on above: Performed By: #### C DP, BMP, TROPI, DIME #### [facility] [address] [place], [place] [id number] Properties Supervisor: Domenica Velázquez MD Calcium [Mass/Vol] 8.9 mg/dL Normal 8.6-10.4 [facility] Comment on above: Performed By: #### C DP, BMP, TROPI, DIME #### [facility] [address] [place], [place] [id number] Properties Supervisor: Domenica Velázquez MD Chloride [Moles/Vol] 105 mmol/L Normal 98-107 [facility] Comment on above: Performed By: #### C DP, BMP, TROPI, DIME #### [address] [place], [place] [id number] Properties Supervisor: Domenica Velázquez MD CO2 [Moles/Vol] 26 mmol/L Normal 20-31 [facility] Comment on above: Performed By: #### C DP, BMP, TROPI, DIME #### [facility] [address] [place], [place] [address]83 Properties Supervisor: Domenica Velázquez MD Creatinine [Mass/Vol] 0.6 mg/dL Normal 0.5-0.9 [facility] Comment on above: Performed By: #### C DP, BMP, TROPI, DIME #### [facility] [address] [place], [place] [id number] Properties Supervisor: Domenica Velázquez MD GFR/1.73 sq M.predicted among non-blacks MDRD (S/P/Bld) [Vol rate/Area] mL/min/{1.73_m2} Normal >60 [facility] Comment on above: Result Comment: These [...] #### C DP, BMP, TROPI, DIME #### [facility] [address] [place] [address] [place] [address] Properties Supervisor: Domenica Velázquez MD Glucose [Mass/Vol] 96 mg/dL Normal 70-99 [facility] Comment on above: Performed By: #### C DP, BMP, TROPI, DIME #### [address] [place], [place] [address]83 Properties Supervisor: Domenica Velázquez MD Potassium [Moles/Vol] 3.8 mmol/L Normal 3.7-5.3 [facility] Comment on above: Performed By: #### C DP, BMP, TROPI, DIME #### [address] [place], [place] [address] Properties Supervisor: Domenica Velázquez MD Sodium [Moles/Vol] 141 mmol/L Normal 135-144 [facility] Comment on above: Performed By: #### C DP, BMP, TROPI, DIME #### [facility] [address] [place] [address] [place] [address] Properties Supervisor: Domenica Velázquez MD Urea nitrogen [Mass/Vol] 14 mg/dL Normal 6-20 [facility] Comment on above: Performed By: #### C DP, BMP, TROPI, DIME #### [address] [place], [place] [id number] Properties Supervisor: Domenica Velázquez MD CBC with Diffon 10-05-2023 Abs. Basophil <0.03 Normal 0.00-0.20 [facility] Comment on above: Performed By: #### C DP, BMP, TROPI, DIME #### [facility] [address] [place] [address] Properties Supervisor: Domenica Velázquez MD Abs.Imm.Granulocyte 0.03 k/uL Normal 0.00-0.30 [facility] Comment on above: Performed By: #### C DP, BMP, TROPI, DIME #### [facility] [address] [place] [address] Properties Supervisor: Domenica Velázquez MD Abs.Neutrophil (Seg) 5.10 k/uL Normal 1.50-8.10 [facility] Comment on above: Performed By: #### C DP, BMP, TROPI, DIME #### [facility] [address] [place] [address] Dr[address] [place], [place] [address] Properties Supervisor: Domenica Velázquez MD Basophils/100 WBC (Bld) 0 % Normal 0-2 [facility] Comment on above: Performed By: #### C DP, BMP, TROPI, DIME #### [address] [place] [address] Properties Supervisor: Domenica Velázquez MD Eosinophils (Bld) [#/Vol] 0.11 10*3/uL Normal 0.00-0.44 [facility] Comment on above: Performed By: #### C DP, BMP, TROPI, DIME #### [facility] [address] [place] [address] Properties Supervisor: Domenica Velázquez MD Eosinophils/100 WBC (Bld) 1 % Normal 1-4 [facility] Comment on above: Performed By: #### C DP, BMP, TROPI, DIME #### [address] [place] [address] Properties Supervisor: Domenica Velázquez MD Erythrocyte distribution width (RBC) [Ratio] 13.5 % Normal 11.8-14.4 [facility] Comment on above: Performed By: #### C DP, BMP, TROPI, DIME #### [address] [place] [id number] Properties Supervisor: Domenica Velázquez MD Hematocrit (Bld) [Volume fraction] 42.6 % Normal 36.3-47.1 [facility] Comment on above: Performed By: #### C DP, BMP, TROPI, DIME #### [address] [place] [address] Properties Supervisor: Domenica Velázquez MD Hemoglobin (Bld) [Mass/Vol] 14.1 g/dL Normal 11.9-15.1 [facility] Comment on above: Performed By: #### C DP, BMP, TROPI, DIME #### [address] [place] [address] Properties Supervisor: Domenica Velázquez MD Immature granulocytes/100 WBC (Bld) 0 % Normal 0 [facility] Comment on above: Performed By: #### C DP, BMP, TROPI, DIME #### [address] [place] [address] Properties Supervisor: Domenica Velázquez MD Lymphocytes (Bld) [#/Vol] 2.42 10*3/uL Normal 1.10-3.70 [facility] Comment on above: Performed By: #### C DP, BMP, TROPI, DIME #### [address] [place] [address] Properties Supervisor: Domenica Velázquez MD Lymphocytes/100 WBC (Bld) 30 % Normal 24-43 [facility] Comment on above: Performed By: #### C DP, BMP, TROPI, DIME #### [address] [place] [phone] Properties Supervisor: Domenica Velázquez MD MCH (RBC) [Entitic mass] 28.8 pg Normal 25.2-33.5 [facility] Comment on above: Performed By: #### C DP, BMP, TROPI, DIME #### [address] [place], [facility] Properties Supervisor: Domenica Velázquez MD MCHC (RBC) [Mass/Vol] 33.1 g/dL Normal 28.4-34.8 [facility] Comment on above: Performed By: #### C DP, BMP, TROPI, DIME #### [address] [place] [address] Properties Supervisor: Domenica Velázquez MD MCV (RBC) [Entitic vol] 87.1 fL Normal 82.6-102.9 [facility] Comment on above: Performed By: #### C DP, BMP, TROPI, DIME #### [address] [place], [facility]83 Properties Supervisor: Domenica Velázquez MD Monocytes (Bld) [#/Vol] 0.53 10*3/uL Normal 0.10-1.20 [facility] Comment on above: Performed By: #### C DP, BMP, TROPI, DIME #### [address] [place], [facility]83 Properties Supervisor: Domenica Velázquez MD Monocytes/100 WBC (Bld) 7 % Normal 3-12 [facility] Comment on above: Performed By: #### C DP, BMP, TROPI, DIME #### [address] [place] [address] Properties Supervisor: Domenica Velázquez MD Neutrophil (Seg) 62 % Normal 36-65 [facility] Comment on above: Performed By: #### C DP, BMP, TROPI, DIME #### [facility] [address] [place], [place] [address] Properties Supervisor: Domenica Velázquez MD NRBC Automated 0.0 per 100 WBC Normal 0.0 [facility] Comment on above: Performed By: #### C DP, BMP, TROPI, DIME #### [address] [place], [place] [phone] Properties Supervisor: Domenica Velázquez MD Platelet mean volume (Bld) [Entitic vol] 10.9 fL Normal 8.1-13.5 [facility] Comment on above: Performed By: #### C DP, BMP, TROPI, DIME #### [address] [place], [place] [address] Properties Supervisor: Domenica Velázquez MD Platelets (Bld) [#/Vol] 296 10*3/uL Normal 138-453 [facility] Comment on above: Performed By: #### C DP, BMP, TROPI, DIME #### [address] [place], [place] [address]83 Properties Supervisor: Domenica Velázquez MD RBC (Bld) [#/Vol] 4.89 10*6/uL Normal 3.95-5.11 [facility] Comment on above: Performed By: #### C DP, BMP, TROPI, DIME #### [address] [place], [place] [address] Properties Supervisor: Domenica Velázquez MD WBC (Bld) [#/Vol] 8.2 10*3/uL Normal 3.5-11.3 [facility] Comment on above: Performed By: #### C DP, BMP, TROPI, DIME #### [address] [place], [place] [phone] Properties Supervisor: Domenica Velázquez MD CT CHEST PULMONARY EMBOLISM [...] Fernando Marcelino MD 10/05/23 Final result Normal [facility] D-Dimer Teston 10-05-2023 D-Dimer Test 0.30 ug/mL FEU Normal 0.00-0.59 [facility] Comment on above: Result Comment: When [...] #### C DP, SHAWNA, KATHY CABRERA #### [address] [place] [address] Properties Supervisor: Domenica Velázquez MD Liver Profileon 10-05-2023 Albumin [Mass/Vol] 4.4 g/dL Normal 3.5-5.2 [facility] Comment on above: Performed By: #### L IVP #### [address] [place] [address] Properties Supervisor: Domenica Velázquez MD Albumin/Glob Ratio 1.4 Normal 1.0-2.5 [facility] Comment on above: Performed By: #### L IVP #### [address] [place] [address] Properties Supervisor: Domenica Velázquez MD Alkaline Phos 99 U/L Normal 35-104 [facility] Comment on above: Performed By: #### L IVP #### [address] [place], [place] [address] Properties Supervisor: Domenica Velázquez MD ALT [Catalytic activity/Vol] 13 U/L Normal 5-33 [facility] Comment on above: Performed By: #### L IVP #### [address] [place] [address] Properties Supervisor: Domenica Velázquez MD AST [Catalytic activity/Vol] 16 U/L Normal <32 [facility] Comment on above: Performed By: #### L IVP #### [address] [place] [address] Properties Supervisor: Domenica Velázquez MD Bilirubin [Mass/Vol] 0.2 mg/dL Low 0.3-1.2 [facility] Comment on above: Performed By: #### L IVP #### [facility] [address] [place] [address] [place] [address] Properties Supervisor: Domenica Velázquez MD Bilirubin, Indirect Can not be calculated Normal 0.0-1 .0 [facility] Comment on above: Performed By: #### L IVP #### [facility] [address] [place] [address] [place] [address] Properties Supervisor: Domenica Velázquez MD Bilirubin.indirect [Mass/Vol] mg/dL Normal <0.3 [facility] Comment on above: Performed By: #### L IVP #### [facility] [address] [place] [address] [place] [address] Properties Supervisor: Domenica Velázquez MD Protein [Mass/Vol] 7.5 g/dL Normal 6.4-8.3 [facility] Comment on above: Performed By: #### L IVP #### [facility] [address] [place] [address] [place] [address] Properties Supervisor: Domenica Velázquez MD Troponinon 10-05-2023 Troponin, High Sens <6 Normal 0-14 [facility] Comment on above: Result Comment: High Sensitivity Troponin values cannot be compared with other Troponin methodologies. Performed By: #### T ROPI #### [facility] [address] [place] [address] [place] [address] Properties Supervisor: Domenica Velázquez MD Troponin, High Sens <6 Normal 0-14 [facility] Comment on above: Result Comment: High Sensitivity Troponin values cannot be compared with other Troponin methodologies. Performed By: #### C DP, BMP, TROPI, DIME #### [facility] [address] [place] [address] [place] [address] Properties Supervisor: Domenica Velázquez MD XR CHEST PORTABLEon 10-05-19 [...] Deyanira Lock MD 10/05/23 Final result Normal [facility] CT CERVICAL SPINE WO CONTRAS Ton [...] Andi Montoya MD 04/20/23 Final result Normal [facility] CT Cervical spine WO contras ton 04-20-2023 Radiology Study observation (narrative) [facility] CT HEAD WO CONTRASTon 2023 CT HEAD [...] Andi Montoya MD 04/20/23 Final result Normal [facility] CT Head WO contraston 2023 Radiology Study observation (narrative) [facility] No Panel Informationon 04-[address] abnormal ity identified in the brain. No acute osseous abnormality identified in the cervical spine. [facility] CONSOLIDATED EXAMINATION: CT OF THE [...] There is no prevertebral soft tissue swelling. [facility] Andi Alvarez MD - 04/20/2023 EXAMINATION: [...] 03-27-2023 Glucose [Mass/Vol] 151 mg/dL High 65-99 [facility] Glucose Poct Glucometerson 0 03-18-2023 Commemt1 Glu2: Cleaned Meter Normal [facility] Comment on above: Result Comment: PERF ORMED BY: [place] [address] PATHOLOGIST SERVICE CENTER SUPERVISOR SHA VALERA M.D. Performed By: #### G LULS #### Point of Care testing , Glucose [Mass/Vol] 87 mg/dL Normal [facility] Comment on above: Result Comment: [facility] [place] Glucose Reference Range is dependent on time and content of last meal. Glucose of more than 200 mg/dL in a nonstressed, ambulatory subject supports the diagnosis of Diabetes Mellitus. Performed By: #### G LULS #### Point of Care testing , HCG,Urineon 03-18-2023 Beta HCG ( test) Ql (U) Negative Normal [facility] Comment on above: Result Comment: PERF ORMED BY: [place] [address] PATHOLOGIST SERVICE CENTER SUPERVISOR SHA VALERA M.D. Performed By: #### U HCG #### [address] CBC AND AUTO DIFFon 03-16-19 24 ABSOLUTE BASOPHIL 0.0 X10E9/L Normal 0.0-0.2 [facility] Comment on above: Performed By: #### C BCA, CMP, 59755-0, TSHR #### [facility] ([id number]) [address] [place] [address] ABSOLUTE NEUTROPHIL 7.7 X10E9/L High 1.5-6.6 [facility] Comment on above: Performed By: #### C ADITYA, CMP, 64286-7, TSHR #### [facility] ([id number]) [address], [address] [place] [address] Basophils/100 WBC (Bld) 0.3 % Normal [facility] Comment on above: Performed By: #### C ADITYA, CMP, 35295-0, TSHR #### [facility] ([id number]) [address], [address] [place] [address] Eosinophils (Bld) [#/Vol] 0.1 10*3/uL Normal 0.0-0.4 [facility] Comment on above: Performed By: #### Terrell BURGESS, CMP, 00552-0, TSHR #### [facility] ([id number]) [address] [place] [address] Eosinophils/100 WBC (Bld) 1.1 % Normal [facility] Comment on above: Performed By: #### C BCA, CMP, 78258-6, TSHR #### [facility] ([id number]) [address] [place] [address] Erythrocyte distribution width (RBC) [Ratio] 14.6 % Normal 11.5-15.0 [facility] Comment on above: Performed By: #### C BCA, CMP, 53824-9, TSHR #### [facility] ([id number]) [address] [place] [address] Hematocrit (Bld) [Volume fraction] 45.7 % Normal 35-47 [facility] Comment on above: Performed By: #### C BCA, CMP, 26808-4, TSHR #### [facility] ([id number]) [address] [place] [address] Hemoglobin (Bld) [Mass/Vol] 15.0 g/dL Normal 11.7-15.5 [facility] Comment on above: Performed By: #### C ADITYA CMP, 60324-7, TSHR #### [facility] ([id number]) [address], [facility] [address] [place] [address] Lymphocytes (Bld) [#/Vol] 2.4 10*3/uL Normal 1.0-3.5 [facility] Comment on above: Performed By: #### Terrell BURGESS CMP, 83112-9, TSHR #### [facility] ([id number]) [address], [facility] [address] [place] [address] Lymphocytes/100 WBC (Bld) 22.1 % Normal [facility] Comment on above: Performed By: #### Terrell BURGESS CMP, 07713-1, TSHR #### [facility] ([id number]) [address], [facility] [address] [place] [address] MCH (RBC) [Entitic mass] 29.0 pg Normal 27-34 [facility] Comment on above: Performed By: #### Terrell BURGESS CMP, 26067-8, TSHR #### [facility] ([id number]) [address] [place] [address] MCHC (RBC) [Mass/Vol] 32.8 g/dL Normal 32-36 [facility] Comment on above: Performed By: #### Terrell BURGESS CMP, 34026-3, TSHR #### [facility] ([id number]) [address] [address] [place] [address] MCV (RBC) [Entitic vol] 88 fL Normal 80-100 [facility] Comment on above: Performed By: #### Terrell BURGESS CMP, 55162-7, TSHR #### [facility] ([id number]) [address] [place] [address] Monocytes (Bld) [#/Vol] 0.6 10*3/uL Normal 0-0.9 [facility] Comment on above: Performed By: #### C BCA, CMP, 06947-0, TSHR #### [facility] ([id number]) [address] [place] [address] Monocytes/100 WBC (Bld) 5.7 % Normal [facility] Comment on above: Performed By: #### C BCA, CMP, 54484-2, TSHR #### [facility] ([id number]) [address] [place] [address] Neutrophils/100 WBC (Bld) 70.8 % Normal [facility] Comment on above: Performed By: #### Terrell BCA, CMP, 10528-4, TSHR #### [facility] ([id number]) [address] [place] [address] Platelet mean volume (Bld) [Entitic vol] 9.7 fL Normal 7-12 [facility] Comment on above: Performed By: #### Terrell BCA, CMP, 47800-8, TSHR #### [facility] ([id number]) [address] [address] [place] [address] Platelets (Bld) [#/Vol] 303 10*3/uL Normal 150-450 [facility] Comment on above: Performed By: #### C BCA, CMP, 93108-6, TSHR #### [facility] ([id number]) [address] [address] [place] [address] RBC COUNT 5.17 X10E12/L Normal 3.80-5.20 [facility] Comment on above: Performed By: #### C BCA, CMP, 39430-6, TSHR #### [facility] ([id number]) [address] [place] [address] WBC (Bld) [#/Vol] 10.9 10*3/uL Normal 4.0-11.0 [facility] Comment on above: Performed By: #### C BCA, CMP, 75986-7, TSHR #### [facility] ([id number]) [address] [place] [address] COMPREHENSIVE METABOLIC PANE Dirk 03-16-2023 Albumin [Mass/Vol] 4.7 g/dL Normal 3.2-5.3 [facility] Comment on above: Performed By: #### C BCA, CMP, 86338-3, TSHR #### [facility] ([id number]) [address] [place] [address] ALP [Catalytic activity/Vol] 74 U/L Normal 39-130 [facility] Comment on above: Performed By: #### C BCA, CMP, 16235-0, TSHR #### [facility] ([id number]) [address] [place] [address] ALT [Catalytic activity/Vol] 22 U/L Normal 0-31 [facility] Comment on above: Performed By: #### C BCA, CMP, 72226-4, TSHR #### [facility] ([id number]) [address] [place] [address] Anion gap [Moles/Vol] 12 mmol/L Normal 5-15 [facility] Comment on above: Performed By: #### C BCA, CMP, 95445-2, TSHR #### [facility] ([id number]) [address] [place] [address] AST [Catalytic activity/Vol] 20 U/L Normal 0-41 [facility] Comment on above: Performed By: #### C BCA, CMP, 35546-4, TSHR #### [facility] ([id number]) [address] [place] [address] Bilirubin [Mass/Vol] 0.5 mg/dL Normal 0.3-1.2 [facility] Comment on above: Performed By: #### C JAHAIRA BURGESS, 60111-1, TSHR #### [facility] ([id number]) [address], [facility] [address] [place] [address] Calcium [Mass/Vol] 9.9 mg/dL Normal 8.5-10.5 [facility] Comment on above: Performed By: #### C JAHAIRA BURGESS, 71673-1, TSHR #### [facility] ([id number]) [address] [place] [address] Chloride [Moles/Vol] 105 mmol/L Normal 98-109 [facility] Comment on above: Performed By: #### C JAHAIRA BURGESS, 22124-6, TSHR #### [facility] ([id number]) [address] [place] [address] CO2 [Moles/Vol] 25 mmol/L Normal 22-32 [facility] Comment on above: Performed By: #### C JAHAIRA BURGESS, 16349-4, TSHR #### [facility] ([id number]) [address], [facility] [address] [place] [address] Creatinine [Mass/Vol] 0.74 mg/dL Normal 0.40-1.00 [facility] Comment on above: Result Comment: METH OD TRACEABLE TO IDMS STANDARD Performed By: #### C JAHAIRA BURGESS, 05436-0, TSHR #### [facility] ([id number]) [address] [place] [address] eGFR (CKD-EPI) NON-RACE DEPENDENT >90 Normal >59 [facility] Comment on above: Result Comment: Reported eGFR is based on the CKD-EPI 2020 equation that does not use a race coefficient. Performed By: #### C ADITYA CMP, 50337-7, TSHR #### [facility] ([id number]) [address] [place] [address] Glucose [Mass/Vol] 143 mg/dL High 65-99 [facility] Comment on above: Performed By: #### C BCA, CMP, 13631-0, TSHR #### [facility] ([id number]) [address] [place] [address] Potassium [Moles/Vol] 3.8 mmol/L Normal 3.5-5.0 [facility] Comment on above: Performed By: #### C BCA, CMP, 01201-9, TSHR #### [facility] ([id number]) [address] [place] [address] Protein [Mass/Vol] 7.8 g/dL Normal 6.0-8.0 [facility] Comment on above: Performed By: #### C BCA, CMP, 64218-5, TSHR #### [facility] ([id number]) [address] [place] [address] Sodium [Moles/Vol] 142 mmol/L Normal 134-146 [facility] Comment on above: Performed By: #### C BCA, CMP, 59526-3, TSHR #### [facility] ([id number]) [address] [place] [address] Urea nitrogen [Mass/Vol] 17 mg/dL Normal 5-23 [facility] Comment on above: Performed By: #### C BCA, CMP, 46057-2, TSHR #### [facility] ([id number]) [address] [place] [address] HGB A1C (GLYCO-HGB)on 2023 Glucose [Mass/Vol] 117 mg/dL Normal [facility] Comment on above: Performed By: #### C BCA, CMP, 76214-5, TSHR #### [facility] ([id number]) [address] [place] [address] HbA1c (Bld) [Mass fraction] 5.7 % High 4.4-5.6 [facility] Comment on above: Result Comment: NOTE ADA Guidelines Result HgbA1c Normal : less than 5.7 % Prediabetes : 5.7 % to 6.4 % Diabetes : > 6.4 % Use with caution in patients with abnormal hemoglobin variants as the half-life of red blood cells and in vivo glycation rates are affected. Performed By: #### Terrell BURGESS CMP, 46771-4, TSHR #### [facility] ([id number]) [address], [facility] [address] [place] [address] Lipid 1996 panelon 4 Cholesterol [Mass/Vol] 132 mg/dL Low 150-200 [facility] Comment on above: Performed By: #### Terrell BURGESS CMP, 80911-4, TSHR #### [facility] ([id number]) [address], [facility] [address] [place] [address] Cholesterol in HDL [Mass/Vol] 58 mg/dL Normal >39 [facility] Comment on above: Result Comment: HDL <40 mg/dL - High Risk HDL > or = 40mg/dL- Desirable HDL >60 mg/dL - Negative Risk Performed By: #### Terrell BURGESS CMP, 99551-9, TSHR #### [facility] ([id number]) [address], [facility] [address] [place] [address] Cholesterol in LDL [Mass/Vol] 51 mg/dL Normal <130 [facility] Comment on above: Result Comment: LDL <100 mg/dL - Desirable LDL >160 mg/dL - High Risk Performed By: #### C ADITYA, CMP, 58004-7, TSHR #### [facility] ([id number]) [address] [place] [address] Cholesterol in VLDL [Mass/Vol] 23 mg/dL Normal 0-30 [facility] [facility] Comment on above: Performed By: #### C BCA, CMP, 90977-5, TSHR #### [facility] ([id number]) [address], [address] [place] [address] CHOLESTEROL:HDL 2.3 Normal 1.0-5.0 [facility] Comment on above: Performed By: #### C BCA, CMP, 48560-4, TSHR #### [facility] ([id number]) [address], [address] [place] [address] Triglyceride [Mass/Vol] 114 mg/dL Normal 27-150 [facility] Comment on above: Performed By: #### C BCA, CMP, 12356-4, TSHR #### [facility] ([id number]) [address], [address] [place] [address] MAMM SCREENING BILATERAL W C reed repairer 03-16-2023 MAMM SCREENING BILATERAL W CAD MAMM [...] 3:25 PM 0A a ADDITIONAL I Normal [facility] TSH WITH REFLEXon 03-16-2023 TSH 0.55 uIU/mL Normal 0.49-4.67 [facility] Comment on above: Performed By: #### C BCA, [facility], 56263-6, TSHR #### [facility] ([id number]) [address], [address] [place] [address] PT - Assessmentson 3 PT - Assessments [id number]#1.00CD:12 7 Normal [facility] ST - Assessmentson 3 ST - Assessments [id number]#1.00CD:127 Normal [facility] Consenton 09-25-2022 Consent [id number]#1.00CD:127 Normal [facility] Outside Recordson 2022 Outside Records [id number]#1.00CD:127 Normal [facility] ST - Orderson 2022 ST - Orders [id number]#1.00CD:127 Normal [facility] ST - Orders [id number]#1.00CD:127 Normal [facility] ST - Otheron 2022 ST - Other [id number]#1.00CD:127 Normal [facility] PAP ACOG PANEL 2: 30 to 65on 05-27-2022 . . Normal [facility] Comment on above: Result Comment: Perf ormed at: WB Performed By: #### 4 [id number] #### [facility] [address] [address] [address] Do Aguilar Age Gdln ACOG Testing 30-65 Normal [facility] Comment on above: Performed By: #### 4 [id number] #### [facility] [address] [address] [address] Do Aguilar DIAGNOSIS: Comment Normal [facility] Comment on above: Result Comment: NEGA TIVE FOR INTRAEPITHELIAL LESION OR MALIGNANCY. Performed at: WB Performed By: #### 4 [id number] #### [facility] [address] [address] [address] Do Aguilar HPV Aptima Negative Normal Negative [facility] Comment on above: Result Comment: This nucleic acid amplification test detects fourteen high-risk HPV types (16,18,31,33,35,39,45,51,52,56,58,59,66,68) without differentiation. Performed at: =G Performed By: #### 4 [id number] #### [facility] [address] [address] [address] Do Aguilar HPV Genotype Reflex Comment Normal [facility] Comment on above: Result Comment: Crit eria not met, HPV Genotype not performed. Performed at: WB Performed By: #### 4 [id number] #### [facility] [address] [address] [address] Do Aguilar Methodology: Comment [facility] Comment on above: Result Comment: This liquid based ThinPrep(R) pap test was screened with the use of an image guided system. Performed at: WB Performed By: #### 4 [id number] #### [facility] [address] [place] [address] Dr. Do Aguilar Note: Comment Normal [facility] Comment on above: Result [...] Performed at: WB Performed By: #### 4 [id number] #### [facility] [address] [place] [address] Dr. Do Aguilar Performed by: Comment Normal [facility] Comment on above: Result Comment: Melisas Ramachandran, Custom Feed Corn Operator (ASCP) Performed at: WB Performed By: #### 4 [id number] #### [facility] [address] [place] [address] Dr. Do Aguilar Specimen adequacy: Comment Normal [facility] Comment on above: Result Comment: Sati sfactory for evaluation. Endocervical and/or squamous metaplastic cells (endocervical component) are present. Performed at: WB Performed By: #### 4 [id number] #### [facility] [address] [place] [address] Dr. Do Aguilar HEPATITIS C AB CASCADE TO QU ANT PCR GENOon 02-18-2022 HCV AB <0.1 Normal 0.0-0.9 [facility] Comment on above: Performed By: #### H EPCASC #### [facility] [address] [place] [address] Dr. Do Aguilar Interpretation: Comment Normal [facility] Comment on above: Result Comment: Nega tive Not infected with HCV, unless recent infection is suspected or other evidence exists to indicate HCV infection. Performed By: #### H EPCASC #### [facility] [address] [place] [address] Dr. Do Aguilar LIVER PROFILEon 02-17-2022 Albumin [Mass/Vol] 3.6 g/dL Normal 3.4-5.0 [facility] Comment on above: Performed By: #### L IVER #### [facility] [address] [place] [address] Dr. Do Aguilar Albumin/Globulin [Mass ratio] 0.9 {ratio} Normal [facility] Comment on above: Performed By: #### L IVER #### [facility] [address] [address] [address] Do Aguilar ALP [Catalytic activity/Vol] 79 U/L Normal 46-116 [facility] Comment on above: Performed By: #### L IVER #### [facility] [address] [place] [address] Dr. Do Aguilar ALT [Catalytic activity/Vol] 51 U/L Normal 14-59 [facility] Comment on above: Performed By: #### L IVER #### [facility] [address] [address] [address] Do Aguilar AST [Catalytic activity/Vol] 33 U/L Normal 15-37 [facility] Comment on above: Performed By: #### L IVER #### [facility] [address] [place] [address] Dr. Do Aguilar BILI, CONJUGATED 0.1 mg/dL Normal 0.0-0.2 [facility] Comment on above: Performed By: #### L IVER #### [facility] [address] [place] [address] Dr. Do Aguilar Bilirubin [Mass/Vol] 0.3 mg/dL Normal 0.2-1.0 [facility] Comment on above: Performed By: #### L IVER #### [facility] [address] [place] [address] Dr. Do Aguilar Globulin (S) [Mass/Vol] 4.2 g/dL Normal [facility] Comment on above: Performed By: #### L IVER #### [facility] [address] [place] [address] Dr. Do Aguilar Protein [Mass/Vol] 7.8 g/dL Normal 6.4-8.2 [facility] Comment on above: Performed By: #### L IVER #### [facility] [address] [place] [address] Dr. Do Aguilar TSHon 02-17-2022 TSH 0.457 uIU/mL Normal 0.358-3.74 0 [facility] Comment on above: Performed By: #### T SH #### [facility] [address] [place] [address] Dr. Do Aguilar VITAMIN B12on 02-17-2022 Cobalamin (Vitamin B12) [Mass/Vol] 1864.0 pg/mL Critically high 193.0-986. 0 The [facility] Comment on above: Performed By: #### V ITB12 #### [facility] [address] [address] [address] Do Aguilar History and Physicalon 12-04 History and Physical [id number]#1.00[facility] - Surgeon/P godwin 12-04-2016 Operative Report - Surgeon/Physician [id number]#1.00[facility] Coding Summaryon 11-26-2016 Coding Summary CODING DATE: 017 [facility] STATUS: Home PAYOR: Medicaid HMO ADMIT DX: REASON FOR VISIT DX: R10.13 Epigastric pain R10.11 Right upper quadrant pain FINAL DX: PRINCIPAL: K29.70 Gastritis, unspecified, without bleeding SECONDARY: PROCEDURES DOCTOR NAME DATE 72352 Esophagogastroduodenoscopy , Juan Ramon Jean MD 11/21/2016 flexible, transoral; with biopsy, single or multiple NOTE: The code number assigned matches the documented diagnosis and / or procedure in the patient's chart. However, the narrative phrase printed from the coding software may appear abbreviated, or result in slightly different terminology. Coded By: Rosalba Laureano Date Saved: 11/26/2016 01:09 pm [facility] Consent Formson 11-24-2016 Consent Forms [id number]#1.00[facility] Intraoperative Noteon 2016 Intraoperative Note [id number]#1.00[facility] Intraoperative Note [id number]#1.00[facility] Operative Report - Surgeon/P godwin 11-24-2016 Operative Report - Surgeon/Physician DATE OF PROCEDURE: 11/21/2016PREOPERATIVE DIAGNOSIS: Epigastric pain/right upper quadrant pain.POSTOPERATIVE DIAGNOSIS: Moderate gastritis.PROCEDURE PERFORMED: EGD with biopsy x1 from the antrum of the stomach forH. pylori testing.SURGEON: Juan Ramon Jean M.D.ANESTHESIA: Conscious sedation with Versed 6 mg IV, Demerol 50 mg IV.FINDINGS: As above.DISPOSITION: To [facility] in fair condition.INDICATIONS: The patient [...] in two weeks.Juan Ramon Jean M.D.JOB #: [id number]: 11/21/2016T: 11/21/2016[Electronically Signed on: 12/03/2016 07:09 EDT] Juan Ramon Jean MD Generated Domain User for [id number][Verified on: 12/03/2016 07:09 EDT] Juan Ramon Jean MD[Transcribed on: 11/21/2016 11:37 EDT]GDU [facility] Telemetry Stripson 7 Telemetry Strips [id number]#1.00OTGTIFF [facility] Telemetry Strips [id number]#1.00OTGTIFF [facility] H. Pylori Gastricon 11-22-19 17 H. Pylori Rico Int Ctrl Pass [facility] Comment on above: Order Comment: H. (A NTRUM) Result Comment: Pass Performed By: #### 2 [id number] ####[facility] (DEFAULT)[address] [place] [address] H. Pylori Gastric Negative Normal Negative [facility] Comment on above: Order Comment: H. (A NTRUM) Result Comment: Nega tive Performed By: #### 2 [id number] ####[facility] (DEFAULT)[address] [place] [address] Inpatient Clinical Summaryon 11-21-2016 Inpatient Clinical Summary [facility] SURGERYClinical Discharge SummaryPERSON INFORMATIONName KARMA SR Age 36 Years 80Sex FEMALE Language Burkinan PCP DEFRANCE, DAVIDMarital Status [id number] Acct# Arrival 11/21/16 07:22:21Visit Reason EGD - EPIGASTRIC ABDOMINAL PAIN Acuity LOS 013 23:19[address] [facility] [address]Qcaxpic:PROVIDER INFORMATIONVITALS INFORMATIONVital Sign Triage LatestTemp OralTemp Temporal 36.4 DegC 36.4 DegCTemp IntravascularTemp AxillaryTemp [id number] Sat 100 % 97 %Respiratory Rate 16 [...] INFORMATIONInstructions:Fo llow up:With: Address: When:Juan Ramon Jean [address] [place] [address] [facility] (1) Within 2 to 4 weeksComments:Call for follow up appointmentWith: Address: When:DOMENICA VARGHESEMARK [address] [place] [address] [phone] Business (1)DIAGNOSISAcute gastritisComment:PHYS DOC NOTES Normal [facility] Inpatient Patient Summaryon 11-21-2016 Inpatient Patient Summary [address] [id number] Patient Discharge InstructionsName: KARMA SRDOB: [birth year] Address: [address] [place] [address] Care Provider:Name: DOMENICA OLIVAPhone: Discharge Diagnosis: Acute [...] or business decisions or sign any legal documentsMemorial [facility] System [facility] would like to thank you for allowing us to assist you with your healthcare needs. The following includes patient education materials and information regarding your injury/illness.KARMA SR has been given the following list of follow-up instructions, prescriptions, and patient education materials:Follow-up InstructionsWith: Address: When:Juan Ramon Jean [address] [place] [address] [facility] (1) Within 2 to 4 weeksComments:Call for follow up appointmentWith: Address: When:DOMENICA ABIMAELMARK [address] [place] [phone] [facility] (1)MedicationsDuring the course of your visit, [...] Antibiotics Ebony.[place] Department of Health and Human ServicesMetro[facility] Campus Medical Centerers for Disease Control and Prevention October 2013 [facility] ordon 11-21-2016 [facility] Endo Intraoperative Record [facility] Endo Intra-Op Record Summary Primary Physician: Juan Ramon Jean MD Finalized Date/Time: 11/21/16 08:37:38 Pt. Name: KARMA SR./Sex: 1980 FEMALE Med Rec #: [id number] Physician: Juan Ramon Jean MD Financial #: [id number] Pt. Type: D Room/Bed: / Admit/Disch: 11/21/16 [...] Jane RN Role Performed Surgeon - Primary Sap Basis Sap Basis Time In 11/21/16 08:06:00 11/21/16 08:06:00 11/21/16 [...] SR /Sex: 1980 FEMALE Med Rec #: [id number] Physician: Juan Ramon Jean MD Financial #: [id number] Pt. Type: D Room/Bed: / Admit/Disch: 11/21/16 07:22:21 - Institution: Phase II Case Times EN MAGR Pre-Care Text: Patient is free from s/s of injury. Patient remains free from compromised physical state related to surgery or anesthesia. Patient comfort maintained. Patient/family verbalize understanding of discharge instructions. Entry 1 In PACU II 11/21/16 08:25:00 Discharge from PACU 11/21/16 09:45:00 II Last Modified By: aCmmy Barroso RN 11/21/16 10:02:02 Post-Care Text: The [...] Signed By: Cammy Barroso RN 11/21/16 10:02 [facility] MAGR Endo Preoperative Recor don 11-21-2016 [facility] Endo Preoperative Record [facility] Endo Pre-Op Record Summary Primary Physician: Juan Ramon Jean MD Finalized Date/Time: 11/21/16 08:27:58 Pt. Name: KARMA SR /Sex: 1980 FEMALE Med Rec #: [id number] Physician: Juan Ramon Jean MD Financial #: [id number] Pt. Type: D Room/Bed: / Admit/Disch: 11/21/16 [...] Signed By: Cammy Barroso RN 11/21/16 08:27 [facility] Test Urine 1on U Preg Negative [facility] Comment on above: Result Comment: Nega tive Performed By: #### 3 [id number] ####[facility] (DEFAULT)[address] [place] [address] U Preg Internal Control Pass [facility] Comment on above: Result Comment: Pass Performed By: #### 3 [id number] ####[facility])[address] [place] [address] Vital Signs Date Time Vital Sign Value Performing Clinician Facility 06-02-2023 14:32-0400 Body mass index (BMI) [Ratio] 36.67 kg/m2 Deepika Robledo MD Work Phone: [facility] 06-02-2023 14:32-0400 Body weight 93.89 kg Deepika Robledo MD Work Phone: [facility] 06-02-2023 14:32-0400 Diastolic blood pressure 102 mm[Hg] Deepika Robledo MD Work Phone: [facility] 06-02-2023 14:32-0400 Heart rate 83 /min Deepika Robledo MD Work Phone: [facility] 06-02-2023 14:32-0400 Systolic blood pressure 136 mm[Hg] Deepika Robledo MD Work Phone: [facility] 05-21-2023 11:22-0400 Body height 160.02 cm [facility] 05-21-2023 11:22-0400 Body mass index (BMI) [Ratio] 36.5 kg/m2 [facility] 05-21-2023 11:22-0400 Body weight 93.44 kg [facility] 05-21-2023 10:39-0400 Body height 160.02 cm [facility] 05-21-2023 10:39-0400 Body mass index (BMI) [Ratio] 36.5 kg/m2 [facility] 05-21-2023 10:39-0400 Body weight 93.49 kg [facility] 05-21-2023 10:39-0400 Diastolic blood pressure 77 mm[Hg] [facility] 05-21-2023 10:39-0400 Heart rate 105 /min [facility] 05-21-2023 10:39-0400 Respiratory rate 18 /min [facility] 05-21-2023 10:39-0400 SaO2% (BldA) [Mass fraction] 95 % [facility] 05-21-2023 10:39-0400 Systolic blood pressure 114 mm[Hg] [facility] 04-28-2023 11:21-0500 Body height 160 cm Gaurav CALVO Work Phone: [facility] [employer] [facility] 04-28-2023 11:21-0500 Body mass index (BMI) [Ratio] 36.14 kg/m2 Gaurav CALVO Work Phone: [facility] [employer] [facility] 04-28-2023 11:21-0500 Body weight 92.53 kg Gaurav Sellers PA Work Phone: [facility] [employer] [facility] 04-28-2023 11:21-0500 Diastolic blood pressure 82 mm[Hg] Gaurav CALVO Work Phone: [facility] [employer] [facility] 04-28-2023 11:21-0500 Heart rate 87 /min Gaurav Sellers PA Work Phone: [facility] [employer] [facility] 04-28-2023 11:21-0500 Respiratory rate 16 /min Gaurav Sellers PA Work Phone: [facility] [employer] 04-28-2023 11:21-0500 SaO2% (BldA) [Mass fraction] 97 % Gaurav CALVO Work Phone: [facility] [employer] [facility] 04-28-2023 11:21-0500 Systolic blood pressure 122 mm[Hg] Gaurav CALVO Work Phone: [facility] [employer] [facility] 04-20-2023 12:41-0500 Body mass index (BMI) [Ratio] 36.49 kg/m2 Shawna Rumschlag DO Work Phone: [facility] [employer] 04-20-2023 12:41-0500 Body weight 93.44 kg Shawna Rumschlag DO Work Phone: [facility] [employer] 04-20-2023 12:41-0500 Diastolic blood pressure 76 mm[Hg] Shawna Rumschlag DO Work Phone: [facility] [employer] 04-20-2023 12:41-0500 Heart rate 83 /min Shawna [facility]umschlag DO [facility] 04-20-2023 12:41-0500 Respiratory rate 16 /min Shawna Rumschlag DO Work Phone[facility] 04-20-2023 12:41-0500 SaO2% (BldA) [Mass fraction] 98 % Shawna Rumschlag DO Work Phone: [facility] [employer] [facility] 04-20-2023 12:41-0500 Systolic blood pressure 129 mm[Hg] Shawna Rumschlag DO Work Phone: [facility] 04-20-2023 12:39-0500 Body temperature 97.3 [degF] Shawna Rumschlag DO Work Phone: [facility] [employer] [facility] [employer] [facility] 03-18-2023 11:30-0500 Diastolic blood pressure 84 mm[Hg] MD Yo Blank Work Phone: [facility] 03-18-2023 11:30-0500 Heart rate 95 /min MD Yo Blank Work Phone: [facility] 03-18-2023 11:30-0500 Respiratory rate 16 /min MD Yo Blank Work Phone: [facility] 03-18-2023 11:30-0500 SaO2% (BldA) [Mass fraction] 99 % MD Yo Blank Work Phone: [facility] 03-18-2023 11:30-0500 Systolic blood pressure 123 mm[Hg] MD Yo Blank Work Phone: [facility] 03-05-2023 09:15-0500 Body height 160.02 cm Gayathri Adams Other [employer] Other 03-05-2023 09:15-0500 Body mass index (BMI) [Ratio] 37.57 kg/m2 Gayathri Scally Other [employer] Other 03-05-2023 09:15-0500 Body weight 96.21 kg Gayathri Scally Other [employer] Other 03-05-2023 09:15-0500 Diastolic blood pressure 89 mm[Hg] Gayathri Scally Other [employer] Other 03-05-2023 09:15-0500 Respiratory rate 18 /min Gayathri Scally Other [employer] Other 03-05-2023 09:15-0500 SaO2% (BldA) [Mass fraction] 96 % Gayathri Scally Other [employer] Other 03-05-2023 09:15-0500 Systolic blood pressure 122 mm[Hg] Gayathri Scally Other [employer] Other 03-02-2023 19:24-0500 Body height 160 cm Sil Sullivan DO Work Phone: [employer] 03-02-2023 19:24-0500 Body mass index (BMI) [Ratio] 36.31 kg/m2 Sil Sullivan DO Work Phone: [employer] 03-02-2023 19:24-0500 Body temperature 98.29 [degF] Sil Sullivan DO Work Phone: [employer] 03-02-2023 19:24-0500 Body weight 92.99 kg Sil Sullivan DO Work Phone: [employer] 03-02-2023 19:24-0500 Diastolic blood pressure 98 mm[Hg] Sil Sullivan DO Work Phone: [employer] 03-02-2023 19:24-0500 Heart rate 82 /min Sil Sullivan DO Work Phone: [employer] 03-02-2023 19:24-0500 Respiratory rate 18 /min Sil Sullivan DO Work Phone: [employer] 03-02-2023 19:24-0500 SaO2% (BldA) [Mass fraction] 98 % Sil Sullivan DO Work Phone: [employer] 03-02-2023 19:24-0500 Systolic blood pressure 139 mm[Hg] Sil Sullivan DO Work Phone: [employer] 02-05-2023 09:20-0500 Body height 160.02 cm Jan Garg Other [employer] Other 02-05-2023 09:20-0500 Body mass index (BMI) [Ratio] 36.66 kg/m2 Jan Scmechellener Other [employer] Other 02-05-2023 09:20-0500 Body weight 93.9 kg Jan Scovanner Other [employer] Other 01-15-2023 09:45-0500 Body height 160.02 cm Gayathri Scally Other [employer] Other 01-15-2023 09:45-0500 Body mass index (BMI) [Ratio] 36.68 kg/m2 Gayathri Scally Other [employer] Other 01-15-2023 09:45-0500 Body weight 93.94 kg Gayathri Scally Other [employer] Other 01-15-2023 09:45-0500 Diastolic blood pressure 83 mm[Hg] Gayathri Brooklynly Other [employer] Other 01-15-2023 09:45-0500 Respiratory rate 18 /min Gayathri Barahonaly Other [employer] Other 01-15-2023 09:45-0500 SaO2% (BldA) [Mass fraction] 99 % Gayathri Barahonaly Other [employer] Other 01-15-2023 09:45-0500 Systolic blood pressure 119 mm[Hg] Gayathri Brooklynly Other [employer] Other 01-07-2023 10:00-0500 Body height 160.02 cm Jan Garg Other [employer] Other 01-07-2023 10:00-0500 Body mass index (BMI) [Ratio] 36.13 kg/m2 Jan Garg Other [employer] Other 01-07-2023 10:00-0500 Body weight 92.53 kg Jan Garg Other [employer] Other 01-07-2023 10:00-0500 Diastolic blood pressure 74 mm[Hg] Jan Scovanner Other [employer] Other 01-07-2023 10:00-0500 Systolic blood pressure 118 mm[Hg] Jan Scovanner Other [employer] Other 08-28-2022 09:00-0400 Body height 160.02 cm Tamar Sosa Other [employer] Other 08-28-2022 09:00-0400 Body mass index (BMI) [Ratio] 35.8 kg/m2 Tamar Fitt Other [employer] Other 08-28-2022 09:00-0400 Body weight 91.67 kg Tamar Fitt Other [employer] Other 07-29-2022 10:15-0400 Body height 160.02 cm Gayathri Scally Other [employer] Other 07-29-2022 10:15-0400 Body mass index (BMI) [Ratio] 35.18 kg/m2 Gayathri Scally Other [employer] Other 07-29-2022 10:15-0400 Body weight 90.08 kg Gayathri Scally Other [employer] Other 07-29-2022 10:15-0400 Diastolic blood pressure 84 mm[Hg] Gayathri Scally Other [employer] Other 07-29-2022 10:15-0400 Respiratory rate 18 /min Gayathri Scally Other [employer] Other 07-29-2022 10:15-0400 SaO2% (BldA) [Mass fraction] 99 % Gayathri Scally Other [employer] Other 07-29-2022 10:15-0400 Systolic blood pressure 127 mm[Hg] Gayathri Scally Other [employer] Other 05-20-2022 11:15-0400 Body height 160.02 cm Gayathri Scally Other [employer] Other 05-20-2022 11:15-0400 Body mass index (BMI) [Ratio] 34.52 kg/m2 Gayathri Scally Other [employer] Other 05-20-2022 11:15-0400 Body weight 88.41 kg Gayathri Scally Other [employer] Other 05-20-2022 11:15-0400 Diastolic blood pressure 82 mm[Hg] Gayathri Scally Other [employer] Other 05-20-2022 11:15-0400 Respiratory rate 18 /min Gayathri Scally Other [employer] Other 05-20-2022 11:15-0400 SaO2% (BldA) [Mass fraction] 97 % Gayathri Scally Other [employer] Other 05-20-2022 11:15-0400 Systolic blood pressure 121 mm[Hg] Gayathri Scally Other [employer] Other 04-08-2022 11:15-0500 Body height 160.02 cm Gayathri Scally Other [employer] Other 04-08-2022 11:15-0500 Body mass index (BMI) [Ratio] 34.49 kg/m2 Gayathri Scally Other [employer] Other 04-08-2022 11:15-0500 Body weight 88.32 kg Gayathri Scally Other [employer] Other 04-08-2022 11:15-0500 Diastolic blood pressure 77 mm[Hg] Gayathri Scally Other [employer] Other 04-08-2022 11:15-0500 Respiratory rate 18 /min Gayathri Scally Other [employer] Other 04-08-2022 11:15-0500 SaO2% (BldA) [Mass fraction] 98 % Gayathri Scally Other [employer] Other 04-08-2022 11:15-0500 Systolic blood pressure 110 mm[Hg] Gayathri Scally Other [employer] Other 04-08-2022 10:15-0500 Body height 160.02 cm Atmar Fitt Other [employer] Other 04-08-2022 10:15-0500 Body mass index (BMI) [Ratio] 34.49 kg/m2 Tamar Fitt Other [employer] Other 04-08-2022 10:15-0500 Body weight 88.32 kg Tamar Fitt Other [employer] Other 02-26-2022 10:00-0500 Body height 160.02 cm Tamar Fitt Other [employer] Other 02-25-2022 11:45-0500 Body height 160.02 cm Gayathri Scally Other [employer] Other 02-25-2022 11:45-0500 Body mass index (BMI) [Ratio] 36.63 kg/m2 Gayathri Scally Other [employer] Other 02-25-2022 11:45-0500 Body weight 93.8 kg Gayathri Scally Other [employer] Other 02-25-2022 11:45-0500 Diastolic blood pressure 78 mm[Hg] Gayathri Scally Other [employer] Other 02-25-2022 11:45-0500 Respiratory rate 18 /min Gayathri Scally Other [employer] Other 02-25-2022 11:45-0500 SaO2% (BldA) [Mass fraction] 97 % Gayathri Scally Other [employer] Other 02-25-2022 11:45-0500 Systolic blood pressure 109 mm[Hg] Gayathri Scally Other [employer] Other 01-14-2022 11:45-0500 Body height 160.02 cm Gayathri Scally Other [employer] Other 01-14-2022 11:45-0500 Body mass index (BMI) [Ratio] 39.37 kg/m2 Gayathri Scally Other [employer] Other 01-14-2022 11:45-0500 Body weight 100.84 kg Gayathri Scally Other [employer] Other 01-14-2022 11:45-0500 Diastolic blood pressure 88 mm[Hg] Gayathri Scally Other [employer] Other 01-14-2022 11:45-0500 Respiratory rate 18 /min Gayathri Scally Other [employer] Other 01-14-2022 11:45-0500 SaO2% (BldA) [Mass fraction] 97 % Gayathri Scally Other [employer] Other 01-14-2022 11:45-0500 Systolic blood pressure 124 mm[Hg] Gayathri Scally Other [employer] Other 12-04-2021 12:00-0400 Body height 160.02 cm Gayathri Scally Other [employer] Other 12-04-2021 12:00-0400 Body mass index (BMI) [Ratio] 39.73 kg/m2 Gayathri Scally Other [employer] Other 12-04-2021 12:00-0400 Body weight 101.74 kg Gayathri Scally Other [employer] Other 12-04-2021 12:00-0400 Diastolic blood pressure 74 mm[Hg] Gayathri Scally Other [employer] Other 12-04-2021 12:00-0400 Respiratory rate 18 /min Gayathri Scally Other [employer] Other 12-04-2021 12:00-0400 SaO2% (BldA) [Mass fraction] 95 % Gayathri Scally Other [employer] Other 12-04-2021 12:00-0400 Systolic blood pressure 110 mm[Hg] Gayathri Scally Other [employer] Other 10-29-2021 11:30-0400 Body height 160.02 cm Yo Blank Other [employer] Other 10-29-2021 11:30-0400 Body mass index (BMI) [Ratio] 38.61 kg/m2 Yo Blank Other [employer] Other 10-29-2021 11:30-0400 Body weight 98.88 kg Yo Blank Other [employer] Other 10-29-2021 11:30-0400 Diastolic blood pressure 74 mm[Hg] Yo Blank Other [employer] Other 10-29-2021 11:30-0400 Systolic blood pressure 111 mm[Hg] Yo Blank Other [employer] Other 10-22-2021 13:26-0400 Body temperature 97.2 [degF] Shawna Rumschlag DO Work Phone: [employer] 10-22-2021 13:26-0400 Diastolic blood pressure 71 mm[Hg] Sahwna Rumschlag DO Work Phone: [employer] 10-22-2021 13:26-0400 Heart rate 85 /min Shawna Rumschlag DO Work Phone: [employer] 10-22-2021 13:26-0400 Respiratory rate 16 /min Shawna Rumschlag DO Work Phone: [employer] 10-22-2021 13:26-0400 SaO2% (BldA) [Mass fraction] 94 % Shawna Rumschlag DO Work Phone: [employer] 10-22-2021 13:26-0400 Systolic blood pressure 131 mm[Hg] Shawna Rumschlag DO Work Phone: [employer] 10-11-2021 23:48-0400 Body height 160 cm Daniel Adkins MD Work Phone: [employer] 10-11-2021 23:48-0400 Body mass index (BMI) [Ratio] 36.67 kg/m2 Daniel Adkins MD Work Phone: [employer] 10-11-2021 23:48-0400 Body temperature 98.6 [degF] Daniel Adkins MD Work Phone: [employer] 10-11-2021 23:48-0400 Body weight 93.89 kg Daniel Adkins MD Work Phone: [employer] 10-11-2021 23:48-0400 Diastolic blood pressure 88 mm[Hg] Daniel Adkins MD Work Phone: [employer] 10-11-2021 23:48-0400 Heart rate 97 /min Daniel Adkins MD Work Phone: [employer] 10-11-2021 23:48-0400 Respiratory rate 16 /min Daniel Adkins MD Work Phone: [employer] 10-11-2021 23:48-0400 SaO2% (BldA) [Mass fraction] 96 % Daniel Adkins MD Work Phone: [employer] 10-11-2021 23:48-0400 Systolic blood pressure 134 mm[Hg] Daniel Adkins MD Work Phone: [employer] Encounters Encounter Date Encounter Type Care Provider Facility Start: 12-29-2023 End: 12-29-2023 Subsequent hospital visit by physician Tamar Silveira PT [facility] Start: 12-21-2023 End: 12-21-2023 ambulatory CAR[facility] Start: 12-15-2023 End: 12-15-2023 ambulatory LORETO MCNEAL [facility] Start: 12-01-2023 End: 12-01-2023 ambulatory [facility] Start: 11-30-2023 End: 11-30-2023 ambulatory AMENA GARNER Not Available Start: 11-17-2023 End: 11-17-2023 ambulatory [facility] Start: 11-17-2023 End: 11-17-2023 Subsequent hospital visit by physician Tamar Silveira PT [facility] Comment on above: Arrived Start: 11-16-2023 End: 11-16-2023 ambulatory Ugo Bourgeois MD Facility:[facility] Start: 10-20-2023 End: 10-20-2023 ambulatory [facility]NA [facility] Start: 10-20-2023 End: 10-20-2023 Subsequent hospital visit by physician Jan Olmstead PT [facility] Comment on above: Arrived Start: 10-08-2023 End: 10-08-2023 ambulatory DWAYNE PALMER [facility] Start: 10-06-2023 End: 10-07-2023 Emergency department patient visit [facility] Start: 10-05-2023 End: 10-05-2023 Emergency department patient visit [facility] Start: 10-05-2023 End: 10-05-2023 Emergency department patient visit [facility] Start: 09-22-2023 End: 09-22-2023 Subsequent hospital visit by physician Jan Olmstead PT [facility] Start: 09-15-2023 End: 09-15-2023 ambulatory SHAWNA EDWARG [facility] Start: 09-07-2023 End: 09-07-2023 ambulatory SHAWNA EDWARG [facility] Start: 09-01-2023 End: 09-01-2023 ambulatory SHAWNA RUMSCHELIZABETHG [facility] Start: 08-26-2023 End: 08-26-2023 ambulatory SHAWNA RUMSCHELIZABETHG [facility] Start: 08-26-2023 End: 08-26-2023 Subsequent hospital visit by physician Kofi Villegas PT [facility] Comment on above: Arrived Start: 08-21-2023 End: 08-21-2023 ambulatory SHAWNA RUMSCHLAG [facility] Start: 08-21-2023 End: 08-21-2023 Subsequent hospital visit by physician Jan Olmstead PT [facility] Comment on above: Arrived Start: 08-13-2023 End: 08-13-2023 ambulatory LAILA LIEBERMAN Not Available Start: 08-11-2023 End: 08-11-2023 ambulatory SHAWNA RUMSCHLAG [facility] Start: 08-11-2023 End: 08-11-2023 Subsequent hospital visit by physician Jan Olmstead PT [facility] Comment on above: Arrived Start: 08-04-2023 End: 08-04-2023 ambulatory SHAWNA RUMSCHLAG [facility] Start: 07-29-2023 End: 07-29-2023 ambulatory SHAWNA DARIOLAG [facility] Start: 07-14-2023 End: 07-14-2023 Subsequent hospital visit by physician Rebecca Skinner PT [facility] Start: 07-07-2023 End: 07-07-2023 ambulatory SHAWNA RUMSCHLAG [facility] Start: 06-30-2023 End: 06-30-2023 ambulatory SHAWNA RUMSCHLAG [facility] Start: 06-17-2023 End: 06-17-2023 ambulatory SHAWNA RUMSCHLAG [facility] Start: 06-16-2023 End: 06-16-2023 ambulatory SHAWNA RUMSCHLAG [facility] Start: 06-04-2023 End: 06-04-2023 ambulatory SHAWNA RUMSCHLAG [facility] Start: 06-03-2023 End: 06-03-2023 [facility] Start: 06-02-2023 End: 06-02-2023 Office outpatient new 30 minutes Deepika Robledo MD Work Phone: [facility] On[facility] Comment on above: Mass of upper outer quadrant of right breast (Primary Dx); Abnormal mammogram; Symptomatic mammary hypertrophy Start: 06-02-2023 End: 06-02-2023 ambulatory DEEPIKA ROBLEDO [facility] Start: 06-02-2023 ambulatory SHAWNA RUMSCHLAG [facility] Start: 05-25-2023 End: 05-25-2023 ambulatory ALICIA PRESTON Not Available Start: 05-21-2023 End: 05-21-2023 Patient encounter procedure [facility] Physician [facility] Gastroenterology Work Phone: Start: 05-21-2023 End: 05-21-2023 [facility] encounter [facility] Work Phone: Start: 05-20-2023 End: 05-20-2023 ambulatory SHAWNA RUMSCHLAG [facility] Start: 05-19-2023 End: 05-19-2023 ambulatory SHAWNA RUMSCHLAG [facility] Start: 05-12-2023 Telephone encounter Deepika Robledo MD Work Phone: [facility] Surgical Oncology Start: 05-06-2023 End: 05-06-2023 ambulatory SHAWNA RUMSCHLAG [facility] Start: 05-06-2023 End: 05-06-2023 Subsequent hospital visit by physician Rojas Altamirano PTA [facility] Comment on above: Arrived Start: 05-05-2023 End: 05-05-2023 ambulatory SHAWNA RUMSCHLAG [facility] Start: 04-30-2023 Emery Fulton RN [facility] Start: 04-28-2023 End: 04-28-2023 ambulatory GAURAV SELLERS [facility] Start: 04-28-2023 End: 04-28-2023 Office outpatient visit 25 minutes Gaurav CALVO Work Phone: [facility] Comment on above: 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 (Primary Dx) Start: 04-21-2023 End: 04-21-2023 ambulatory SHAWNA RUMSCHLAG [facility] Start: 04-20-2023 End: 04-20-2023 Emergency department patient visit [facility] ED Comment on above: Closed head injury, initial encounter (Primary Dx); Fall due to slipping on ice or snow, initial encounter; Acute cervical myofascial strain, initial encounter Start: 04-16-2023 ambulatory Myrtle Cerna Facility: [facility] Start: 04-07-2023 End: 04-07-2023 ambulatory [facility] Start: 03-31-2023 Emery Clay RN [facility] Start: 03-27-2023 End: 03-27-2023 ambulatory PETE SILVER [facility] Start: 03-24-2023 End: 03-24-2023 ambulatory [facility] Start: 03-19-2023 End: 03-19-2023 ambulatory GABY JUNE Not Available Start: 03-18-2023 Telephone encounter Jan Peterson [facility] Start: 03-18-2023 End: 03-18-2023 ambulatory NON STAFF [facility] [employer] Other Start: 03-18-2023 Non-patient / Non-visit MD Yo Blank Work Phone: [facility] Gastroenterology Work Phone: Start: 03-17-2023 End: 03-17-2023 ambulatory Jan Garg Other [employer] Other Start: 03-17-2023 Telephone encounter Jan Peterson [facility] Start: 03-16-2023 Encounter for genera l adult medical examination without abnormal findings [employer] [facility] Start: 03-16-2023 End: 03-16-2023 ambulatory RORY DRIVER [facility] Start: 03-16-2023 End: 03-16-2023 ambulatory LULY ENGLISH Not Available Start: 03-10-2023 End: 03-10-2023 ambulatory [facility] Start: 03-10-2023 End: 03-10-2023 Subsequent hospital visit by physician Tamar Silveira PT [facility] Comment on above: Arrived Start: 03-05-2023 (FCCCWMNF/U) Weight Management f/u [facility] Start: 03-05-2023 End: 03-05-2023 [facility] [employer] Other Start: 03-05-2023 Registered Recurring MD Monserrat Blank Work Phone: [facility] Work Phone: Start: 03-02-2023 End: 03-02-2023 Emergency department patient visit Sil Sullivan DO Work Phone: [facility] ED Comment on above: Constipation, unspec ified constipation type (Primary Dx) Start: 02-26-2023 End: 02-26-2023 ambulatory Jan Garg Other [employer] Other Start: 02-26-2023 Telephone encounter Jan Peterson [facility] Start: 02-20-2023 Telephone encounter Argenis Storm RN [facility] Comment on above: Medication, DME Start: 02-18-2023 End: 02-18-2023 ambulatory Jan Garg Other [employer] Other Start: 02-18-2023 Telephone encounter Jan Peterson [facility] Start: 02-10-2023 Telephone encounter Margaux Olea CST [facility] Start: 02-05-2023 End: 02-05-2023 ambulatory Jan Garg Other [employer] Other Start: 02-05-2023 Office outpatient visit 15 minutes Jan Garg [facility] Start: 01-15-2023 (FCCCWMNF/U) Weight Management f/u [facility] Start: 01-15-2023 End: 01-15-2023 ambulatory Gayathrimarino Adams Other [employer] Other Start: 01-07-2023 End: 01-07-2023 ambulatory Jan Garg Other [employer] Other Start: 01-07-2023 Office outpatient visit 15 minutes Jan Garg [facility] Gastroenterology Start: 09-25-2022 End: 01-16-2023 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 [place] Start: 09-25-2022 End: 01-15-2023 Recurring YUE GRANADO [facility] Start: 09-17-2022 End: 09-17-2022 ambulatory Gayathri Adams Other [employer] Other Start: 09-17-2022 Telephone encounter Gayathri Adams [facility] Start: 08-28-2022 ([facility] RD FU) [facility] F/ U 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 Tamar Sosa [facility] Start: 08-28-2022 End: 08-28-2022 ambulatory Tamar Sosa Other [employer] Other Start: 07-29-2022 [facility] Weight Management f/u Gayathri Angie [facility] Start: 07-29-2022 End: 07-29-2022 ambulatory Gayathri Brooklynly Other [employer] Other Start: 05-20-2022 [facility] Weight Management f/u Gayathri Brooklynly [facility] Start: 05-20-2022 End: 05-20-2022 ambulatory Gayathri Brooklynly Other [employer] Other Start: 05-19-2022 End: 05-19-[address] ALICIA PRESTON . Facility:[facility] Start: 05-07-2022 End: 05-08-[address] DOCTOR ARREOLA Facility:[facility] Start: 04-09-2022 End: 04-09-2022 ambulatory Gayathri Adams Other [employer] Other Start: 04-09-2022 Telephone encounter Gayathri Barahonaludy [facility] [place] [facility] Start: 04-08-2022 ([facility] WMNI) WMN Initial Provider Tamar Sosa [facility] Start: 04-08-2022 ([facility] Weight Management f/u Gayathri Adams [facility] Start: 04-08-2022 End: 04-08-2022 ambulatory Tamar Fitt Other [employer] Other Start: 02-26-2022 End: 02-26-2022 ambulatory Tamar Fitt Other [employer] Other Start: 02-26-2022 IBT FOR OBESITY GROU P 2-10 30M Tamarsruthi Sosa [facility] Start: 02-25-2022 ([facility] Weight Management f/u Gayathri Adams [facility] Start: 02-25-2022 End: 02-25-2022 ambulatory Gayathri Brooklynludy Other [employer] Other Start: 02-17-2022 End: 02-18-2022 ambulatory RORY DRIVER Facility:[facility] Start: 01-29-2022 End: 01-30-2022 ambulatory JOY ARAMBULA Facility:[facility] Start: 01-14-2022 ([facility] Weight Management f/u Gayathri Adams [facility] Start: 01-14-2022 End: 01-14-2022 ambulatory Gayathri Adams Other [employer] Other Start: 12-05-2021 End: 12-05-2021 ambulatory Gayathri Adams Other [employer] Other Start: 12-05-2021 Telephone encounter Gayathri last [facility] Start: 12-04-2021 End: 12-04-2021 ambulatory Gayathri Adams Other [employer] Other Start: 12-04-2021 Nutrition therapy Gayathri gruber [facility] Start: 10-29-2021 End: 10-29-2021 ambulatory Yo Blank Other [employer] Other Start: 10-29-2021 Patient encounter procedure Yo Blank [facility] Start: 10-22-2021 End: 10-22-2021 Emergency department patient visit Shawna Mcfadden DO Work Phone: [facility] ED Comment on above: Acute diffuse otitis externa of left ear (Primary Dx) Start: 10-11-2021 End: 10-12-2021 Emergency department patient visit Daniel Adkins MD Work Phone: [facility] ED Comment on above: Pilonidal cyst (Prim romero Dx) Start: 11-21-2016 End: 11-26-2016 Ambulatory [facility] Facility:[facility] Procedures Date Procedure Procedure Detail Performing Clinician Start: 05-25-2023 Microscopic observat ion [Identifier] in Cervix by Cyto stain Deepika Robledo MD Work Phone: Start: 04-20-2023 Ct cervical spine w/ o contrast material Keith Urbina HUMAN RESOURCES ADVISOR - ELECTRIC METER INSTALLER HELPER Work Phone: Start: 04-20-2023 Ct head/brain w/o co ntrast material Keith Urbina HUMAN RESOURCES ADVISOR - ELECTRIC METER INSTALLER HELPER Work Phone: Start: 05-02-2022 Microalbumin [Mass/v olume] in Urine by Test strip Patricia Clay RN Start: 05-02-2020 Adult depression scr eening assessment Argenis Storm RN Start: 08-30-2016 Cholecystectomy YUE PARISH Start: 01-03-2013 nasal surgery YUE ALVARENGA RS Tonsillectomy YUE GRANADO Plan of Treatment Date Care Activity Detail Author Start: 05-24-2026 Screening for malignant neoplasm of cervix Pap Smear [facility] [employer] [facility] Start: 03-16-2025 Screening for malignant neoplasm of breast Breast cancer [facility] Start: 11-10-2024 End: 11-10-2024 Patient encounter procedure 11/10/2024 11:30 AM EDT Office Visit [facility] [address] [place] [address] Karen Cotter, HUMAN RESOURCES ADVISOR - ELECTRIC METER INSTALLER HELPER [address] [place] [address] 1 year KUB [facility] Comment on above: 1 year KUB Start: 06-01-2024 Adult BMI Screening Adult BMI Screen ing [facility] Start: 04-28-2024 Adult BMI Screening Adult BMI Screen ing [facility] Start: 04-28-2024 Tobacco Screening Tobacco Screening [facility] Start: 03-16-2024 Adult BMI Screening Adult BMI Screen ing [facility] Start: 01-30-2024 Adult BMI Screening Adult BMI Screen ing [facility] Start: 01-30-2024 Tobacco Screening Tobacco Screening [facility] Start: 01-13-2024 End: 01-13-2024 Patient encounter procedure 01/13/2024 8:15 AM EST Office Visit [facility] [address] [place] [address] Georges Valencia, PA-C [address] [place] [address] [address] [place] [address] incontinence [facility] Comment on above: incontinence Start: 12-29-2023 End: 12-29-2023 Patient encounter procedure 12/29/2023 9:00 AM EDT Appointment [facility] [address] [place] [phone] Tamar Silveira, PT NEEDLING [facility] Therapy Comment on above: NEEDLING Start: 12-15-2023 End: 12-15-2023 Patient encounter procedure 12/15/2023 9:00 AM EDT Appointment [facility] [address] [place] [phone] Tamar Silveira, PT NEEDLING [facility] Physical Therapy Comment on above: NEEDLING Start: 12-01-2023 End: 12-01-2023 Patient encounter procedure 12/01/2023 9:45 AM EDT Appointment [facility] [address] [place] [phone] Tamar Silveira, PT ANTHONYLING [facility] Physical Therapy Comment on above: NEEDLING Start: 11-01-2023 Influenza vaccination Influenza Vacc ine [facility] Start: 10-08-2023 End: 10-08-2023 Patient encounter procedure 10/08/2023 9:00 AM EDT Office Visit [facility] [address] [facility] [address] [place] [address] Dwayne Khoury MD [address], [facility] [address] [place] [address] [facility] Start: 10-01-2023 Influenza vaccination Flu vaccine (# 1) [facility] Start: 09-01-2023 End: 09-01-2023 Patient encounter procedure 09/01/2023 10:30 AM EDT Appointment [facility] [address] [place] [phone] Osito Rowan [facility] Start: 08-26-2023 End: 08-26-2023 Patient encounter procedure 08/26/2023 2:30 PM EDT Appointment [facility] [address] [place] [phone] Kofi Villegas, PT [facility] Start: 08-18-2023 End: 08-18-2023 Patient encounter procedure 08/18/2023 9:45 AM EDT Appointment [facility] [address] [place], [place] [phone] Osito Rowan [facility] Start: 08-11-2023 End: 08-11-2023 Patient encounter procedure 08/11/2023 1:15 PM EDT Appointment [facility] [address] [place], [place] [phone] Jan Olmstead, PT DRY [place] [facility] Comment on above: DRY [place]LING Start: 08-04-2023 End: 08-04-2023 Patient encounter procedure 08/04/2023 4:15 PM EDT Appointment [facility] [address] [place], [place] [phone] Osito Rowan [facility] Start: 06-03-2023 End: 06-03-2023 Patient encounter procedure 06/03/2023 3:30 PM EDT Appointment [facility] [address] [place], [place] [phone] Osito Rowan [facility] Start: 06-02-2023 End: 06-02-2023 Patient encounter procedure [facility] Comment on above: DRY NEEDLING- dont m ove coordinates with son's appt Start: 05-23-2023 Hepatitis B vaccine (3 of 3 - Hep B Twinrix 3-dose series) Hepatitis B vaccine (3 of 3 - Hep B Twinrix 3-dose series) [facility] Start: 05-20-2023 End: 05-20-2023 Patient encounter procedure 05/20/2023 3:15 PM EDT Appointment [facility] [address] [place] [phone] Rojas Altamirano PTA [facility] Start: 05-19-2023 End: 05-19-2023 Patient encounter procedure 05/19/2023 12:45 PM EDT Appointment [facility] [address] [place], [place] [phone] Rbeecca Skinner, PT DRY NEEDLING- dont move coordinates with son's apptDRY NEEDLING [facility] Comment on above: DRY NEEDLING- dont m ove coordinates with son's apptDRY NEEDLING Start: 05-05-2023 End: 05-05-2023 Patient encounter procedure [facility] Comment on above: DRY NEEDLING DRY NEEDLING- césart keith gibson coordinates with son's appt Start: 05-03-2023 Urine screening for protein Urine Microalbumin [facility] Start: 04-28-2023 End: 04-28-2023 Patient encounter procedure 04/28/2023 10:45 AM EST Office Visit [facility] [address] [place] [phone] Gaurav Sellers PA [address] [place], [place] [phone] [facility] Start: 04-21-2023 End: 04-21-2023 Patient encounter procedure [facility] Physical Therapy Comment on above: DRY NEEDLING DRY NEEDLING- césarkhalif keith gibson coordinates with son's appt Start: 04-07-2023 End: 04-07-2023 Patient encounter procedure 04/07/2023 2:15 PM EST Appointment [facility] Physical Therapy [address] [place], [place] [phone] Rebecca Skinner PT DRY NEEDLING [facility] Physical Therapy Comment on above: DRY NEEDLING Start: 03-27-2023 End: 03-27-2023 Admission to same day surgery center 03/27/2023 1:27 PM EST - 03/27/2023 1:33 PM EST Surgery [facility] - Pain Procedures [address] [place] [phone] Pete Silver MD [address] [place], [place] [phone] INJECTION BLOCK SACROILIAC JOINT [15079 (CPT )] [facility] Procedures Comment on above: INJECTION BLOCK SACR OILIAC JOINT [54350 (CPT )] Start: 03-27-2023 End: 03-27-2023 Inject si joint arthrgrphy&/anes/stero id w/monika INJECTION BLOCK SACROILIAC JOINT Disorder of sacrum 03/27/2023 1:27 PM EST [facility] Start: 03-27-2023 Subsequent hospital visit by physician 03/27/2023 1:27 PM EST Hospital Encounter [facility] [address] [place] [phone] Pete Silver MD [address] [address] [facility] Start: 03-24-2023 End: 03-24-2023 Patient encounter procedure 03/24/2023 2:15 PM EST Appointment [facility] [address] [place], [place] [phone] Rebecca Skinner, PT DRY NEEDLING [facility] Physical Therapy Comment on above: DRY NEEDLING Start: 03-19-2023 [facility] Start: 03-16-2023 End: 03-16-2023 Patient encounter procedure 03/16/2023 11:45 AM EST Appointment [facility] - Mammogram DEXA [address] [place] [phone] [facility] DEXA Start: 03-10-2023 End: 03-10-2023 Patient encounter procedure 03/10/2023 2:30 PM EST Appointment [facility] Physical Therapy [address] [place] [phone] Rebecca Skinner, PT [facility] Start: 09-30-2022 Influenza vaccination Flu vaccine (# 1) [facility] Start: 10-31-2021 Influenza vaccination Flu vaccine (# 1) [facility] Start: 09-03-2021 DTaP,Tdap and Td Vaccines (1 - Tdap) DTaP,Tdap and Td Vaccines (1 - Tdap) [facility] Start: 09-03-2021 DTaP/Tdap/Td vaccine (1 - Tdap) DTaP/Tdap/Td vaccine (1 - Tdap) [facility] Start: 05-02-2021 Depression Screening Depression Scre [facility] Start: 2020 Lipid panel Lipids [facility] Start: 01-04-2020 Diabetic foot examination Diabetic Foot Exam [facility] Start: 09-25-2015 Diabetes screen Diabetes screen [facility] Start: 2010 Screening for malignant neoplasm of cervix [facility] Start: 2001 Screening for malignant neoplasm of cervix Pap smear [facility] Start: 09-25-1999 DTaP/Tdap/Td vaccine (1 - Tdap) DTaP/Tdap/Td vaccine (1 - Tdap) [facility] Start: 1998 Adult BMI Follow Up Plan Adult BMI Follow Up Plan [facility] Start: 1998 Hepatitis C screening Hepatitis C sc reen [facility] Start: 09-25-1995 HIV screening HIV screen [facility] Start: 1993 Varicella vaccine (1 of 2 - 13+ 2-dose series) Varicella vaccine (1 of 2 - 13+ 2-dose series) [facility] Start: 1992 Depression Screen Depression Screen [facility] Start: 1992 Depression Screening Depression Scre [facility] Start: 1990 Lipid panel Lipids [facility] Start: 1981 Varicella vaccine (1 of 2 - 2-dose childhood series) Varicella vaccine (1 of 2 - 2-dose childhood series) [facility] Start: 03-27-1981 COVID-19 Vaccine (#1) COVID-19 Vacci ne (#1) [facility] Start: 1980 Glaucoma screening Diabetic Op hthalmology Exam [facility] Start: 1980 Hepatitis B vaccine (1 of 3 - 3-dose series) Hepatitis B vaccine (1 of 3 - 3-dose series) [facility] Inject si joint arthrgrphy&/anes/stero id w/monika INJECTION BLOCK SACROILIAC JOINT Disorder of sacrum [facility] Njx dx/ther agt pvrt facet jt lmbr/sac 1 level INJECTION BLOCK NERVE MEDIAL BRANCH Lumbosacral spondylosis without myelopathy [facility] Immunizations Immunization Date Immunization Notes Care Provider Fa kristianty 12-22-2022 influenza virus vaccine, unspecified formulation Deepika Robledo MD Work Phone: [facility] 12-19-2018 influenza, injectabl e, quadrivalent, preservative free Argenis Storm RN [facility] 12-02-2017 influenza, injectabl e, quadrivalent, preservative free Argenis Storm RN [facility] 12-02-2017 pneumococcal conjuga te vaccine, 13 valent Argenis Storm RN [facility] 10-10-2016 influenza virus vaccine, unspecified formulation Argenis Storm RN [facility] 12-19-2013 influenza virus vaccine, live, attenuated, for intranasal use Argenis Storm RN [facility] 12-03-2012 influenza virus vaccine, whole virus Argenis Storm RN [facility] 12-29-2011 influenza virus vaccine, whole virus Argenis Storm RN [facility] 12-23-2010 influenza virus vaccine, whole virus Argenis Storm RN [facility] 12-18-2008 influenza virus vaccine, whole virus Argenis Storm RN [facility] Payers Date Payer Category Payer Unknown 2021 Self-pay [id number] 2002 Medicaid [employer] [employer] [id number] 2002-Present [phone] [address] [id number] [id number] 1980 Unknown [id number] 2..840.1.102426.3.579.2.593 1980 Unknown [id number] 2..840.1.389796.3.579.2.593 1980 Unknown [id number] 2..840.1.654931.3.579.2.593 1980 Unknown [id number] 2.16.840.1.316902.3.579.2.593 1980 Unknown [id number] 2.16.840.1.150059.3.579.2.727 1980 Unknown [id number] 2.16.840.1.888776.3.579.2.1286 1980 Unknown [id number] 2.16.840.1.523855.3.579.2.128 1980 Unknown [id number] 2.16.840.1.061983.3.579.2.128 1980 Unknown [id number] 2.16.840.1.231396.3.579.2.1285 1980 Unknown [id number] 2.16.840.1.713212.3.579.2.196 1980 Unknown [id number] 2.16840.1.786017.3.579.2.1258 1980 Unknown [id number] 2.16.840.1.914253.3.579.2.1258 1980 Unknown [id number] 2.16.840.1.135281.3.579.2.1258 1980 Unknown [id number] 2.16.840.1.636532.3.579.2.9 1980 Unknown [id number] 2.16840.1.501025.3.579.2.1258 1980 Unknown [id number] 2.16.840.1.065782.3.579.2.173 1980 Unknown [id number] 2.16840.1.058614.3.579.2.173 1980 Unknown [id number] 2.16840.1.760974.3.579.2.173 1980 Unknown [id number] 2.16.840.1.812143.3.579.2.173 1980 Unknown [id number] 2.16.840.1.542922.3.579.2. 1980 Unknown [id number] 2.16.840.1.527114.3.579.2. 1980 Unknown [id number] 2.16.840.1.920536.3.579.2. 1980 Unknown [id number] 2.16.840.1.694542.3.579.2. 1980 Unknown [id number] 2.16.840.1.486653.3.579.2. 1980 Unknown [id number] 2.16.840.1.596948.3.579.2. 1980 Unknown [id number] 2.16.840.1.222903.3.579.2. 1980 Unknown [id number] 2.16840.1.704602.3.579.2. 1980 Unknown [id number] 2.16840.1.000837.3.579.2. 1980 Unknown [id number] 2.16840.1.261140.3.579.2. 1980 Unknown [id number] 2.16.840.1.541193.3.579.2. 1980 Unknown [id number] 2.16840.1.674167.3.579.2. 1980 Unknown [id number] 2.16.840.1.640876.3.579.2. 1980 Unknown [id number] 2.16.840.1.578034.3.579.2. 1980 Unknown [id number] 2.16.840.1.717075.3.579.2. 1980 Unknown [id number] 2.16.840.1.870508.3.579.2. 1980 Unknown [id number] 2.16840.1.275116.3.579.2. 1980 Unknown [id number] 2.16.840.1.694277.3.579.2. 1980 Unknown [id number] 2.16.840.1.044414.3.579.2. 1980 Unknown [id number] 2.16.840.1.472019.3.579.2. 1980 Unknown [id number] 2.16.840.1.476655.3.579.2. 1980 Unknown [id number] 2.16840.1.631653.3.579.2. 1980 Unknown [id number] 2.16840.1.104860.3.579.2. 1980 Unknown [id number] 2.840.1.123176.3.579.2. 1980 Unknown [id number] 2.840.1.976505.3.579.2. 1980 Unknown [id number] 2.840.1.468032.3.579.2. 1980 Unknown [id number] 2.840.1.767900.3.579.2. 1980 Unknown [id number] 2.840.1.602140.3.579.2. 1980 Unknown [id number] 2.840.1.357259.3.579.2.1285 1980 Unknown [id number] 2.840.1.367278.3.579.2.1285 1980 Unknown [id number] 2.16840.1.059449.3.579.2.1285 1980 Unknown [id number] 2.16840.1.820654.3.579.2.1285 1980 Unknown [id number] 2.16840.1.103296.3.579.2.1286 1980 Unknown [id number] 2.16.840.1.778850.3.579.2.1286 1980 Unknown [id number] 2.16.840.1.256101.3.579.2.1286 1959 Medicaid [id number] Unknown [id number] 2.16.840.1.593473.3.579.2.531 Unknown [id number] 2.16.840.1.622454.3.579.2.531 Unknown [id number] 2.16.840.1.256809.3.579.2.531 Social History Date Type Detail Facility Start: 09-02-2017 End: 11-11-2023 Tobacco smoking status PAIS Never smoked tobacco [facility] Start: 09-02-2017 End: 11-11-2023 Tobacco use and exposure Smokeless tobacco non-user [facility]: Start: 10-11-2021 End: 11-11-2023 Alcohol intake Current non-drinker of alcohol (finding) [facility]: Start: 1980 Sex Assigned At Not on file B ON [facility] Phone: Start: 10-01-2021 End: 10-22-2021 Exposure to SARS-CoV-2 (event) Not sure [facility]: Start: 10-11-2021 End: 11-11-2023 Sex Assigned At [facility] Tobacco smoking status Never [facility] Start: 10-11-2021 End: 11-11-2023 History of Social function [facility] Start: 1980 Sex Assigned At Female F [facility] How often to you hav e a drink containing alcohol? Never [facility] Medical Equipment Procedure Code Equipment Code Equipment Origin al Text Equipment Identifier Dates [place] 5.5mm 2 Ft Crkscr Fbrwr Shldr 3 Pk 14.7mm Strl Ea=Bill-Only Rpl [id number] - [id number] Start: 05-15-2022 Use to test BLOO D SUGAR TWICE DAILY [id number] Start: 05-28-2020 Use to test BLOO D SUGAR TWICE DAILY, Diagnosis: E11.9 [id number] Start: 03-08-2020 Clinical Notes 10-22-2021 to 10-20-2023 Jan Olmstead, PT - 10/20/2023 9:45 AM EDFilomena Yanez - 09/22/2023 1:15 PM EDKofi Lucero, PT - 08/26/2023 2:30 PM Filomena Nassar - 08/21/2023 10:45 AM EDTPatient InstructionsAttachments Note Date & Type Note Facility 10-20-2023 History of Presen t illness Narrative [facility] Daily Note Patient: Karma Candelaria : 1980 CSN #: [id number] Referring Physician: Shawna Mcfadden DO Date: 10/20/2023 Treatment Diagnosis: LBP, cervical spine pain Onset Date: 02/18/23 PT Insurance Information: [employer] Total # of Visits Approved: 32 [...] the cervical area and her LB area.-met Mechatronics Technologist Goals Time Frame for Prison Goals : 6 visits Prison Goal 1: Pt will be independent and compliant with exercise while maintaining improved posture 50% of the time - not met Mechatronics Technologist Goal 2: Pt will be able to perform full cervical ROM without increase complaints of baseline pain with initiation to demonstrate imporved control of pain -NOT MET: continued cervical spine pain. Mechatronics Technologist Goal 3: Pt will report 40% improvement in overall complaints and improved tolerance to her job tasks - 40% improved. Prison Goal 4: Pt kvng UE strength will [...] next appt. documented in this encounter [facility] 08-26-2023 History of Presen t illness Narrative [facility] Daily Note Patient: Karma Candelaria : 1980 CSN #: [id number] Referring Physician: Shawna Mcfadden DO Date: 08/26/2023 Diagnosis: Z76.89 - Persons encountering health services in other specified circumstances Treatment Diagnosis: pain in cervical and LB Onset Date: 02/18/23 PT Insurance Information: [place] Total # of Visits Approved: 24 Per [...] the cervical area and her LB area.-met Mechatronics Technologist Goals Time Frame for Mechatronics Technologist Goals : 6 visits Prison Goal 1: Pt will be independent and compliant with exercise while maintaining improved posture 50% of the time. Prison Goal 2: Pt will be able to perform full cervical ROM without increase complaints of baseline pain with initiation to demonstrate imporved control of pain. Mechatronics Technologist Goal 3: Pt will report 40% improvement in overall complaints and improved tolerance to her job tasks. Minutes Tracking: Time In: 1430 Time Out: 1500 Minutes: 30 Timed Code Treatment Minutes: 29 Minutes Kofi Villegsa, PT, DPT Date: 08/26/2023 documented in this encounter [facility] 08-21-2023 History of Presen t illness Narrative Physical Therapy Disregard the no show note on 08/17. This was added in error. [facility] Daily Note Patient: Karma Candelaria : 1980 CSN #: [id number] Referring Physician: Shawna Mcfadden DO Date: 08/21/2023 Treatment Diagnosis: pain in cervical and LB Onset Date: 02/18/23 PT Insurance Information: [employer] Total # of Visits Approved: 24 Per [...] the cervical area and her LB area. Mechatronics Technologist Goals Time Frame for Mechatronics Technologist Goals : 6 visits Prison Goal 1: [...] and improved tolerance to her job tasks. Prison Goal 4: Pt kvng UE strength will be 5/5 without increasing pain complaints to assist in tolerance of lifting and carrying. Minutes Tracking: Time In: 1045 Time Out: 1116 Minutes: 31 Timed Code Treatment Minutes: 29 Minutes Jan Olmstead PT, DPT Date: 08/21/2023 documented in this encounter [facility] 08-11-2023 History of Presen t illness Narrative [facility] Therapy Daily Note Patient: Karma Candelaria : 1980 CSN #: [id number] Referring Physician: Shawna Mcfadden DO Date: 08/11/2023 Diagnosis: Z76.89 - Persons encountering health services in other specified circumstances Treatment Diagnosis: pain in cervical and LB Onset Date: 02/18/23 PT Insurance Information: [facility] Total # of Visits Approved: 24 [...] the cervical area and her LB area. Mechatronics Technologist Goals Time Frame for Prison Goals : 6 visits Mechatronics Technologist Goal 1: Pt will be independent and compliant with exercise while maintaining improved posture 50% of the time. Prison Goal 2: Pt will be able to perform full cervical ROM without increase complaints of baseline pain with initiation to demonstrate imporved control of pain. Prison Goal 3: Pt will report 40% improvement in overall complaints and improved tolerance to her job tasks. Mechatronics Technologist Goal 4: Pt kvng UE strength will be 5/5 without increasing pain complaints to assist in tolerance of lifting and carrying. Minutes Tracking: Time In: 1330 Time Out: 1400 Minutes: 30 Timed Code Treatment Minutes: 28 Minutes Jan Olmstead, PT, DPT Date: 08/11/2023 documented in this encounter [facility] 07-14-2023 History of Presen t illness Narrative Physical Therapy [facility] Inpatient/Observation/Outpatient Rehabilitation Date: 07/14/2023 Patient Name: [...] does not require skilled services due to: Therapist/Outpatient Services Director will attempt to see this patient, at our earliest opportunity. Filomena Raphael Date: 07/14/2023 documented in this encounter [facility] 06-02-2023 History of Presen t [...] Year discontinued? N/a Are you of Ashkenazi Latter Day decent? no Family history of cancer: relation [...] or lymphadenopathy. I reviewed notes from her portuguese tutor dated 05/05/2023, imaging including mammogram and ultrasound dated 03/16/2023 and 03/25/2023, history form dated 06/02/2023. Past Medical History Past Medical History: Diagnosis Date Anxiety Asthma Back pain Bipolar 1 disorder ([facility]) Breast disorder enlarged lymph nodes in both breast Carpal tunnel syndrome Chronic pain disorder Deep vein thrombosis ([facility]) blood clot in left arm Dental disease [...] night 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 ([facility]) 11/10/2017 Visual impairment Past Surgical History Past Surgical History: Procedure Laterality Date ANKLE SURGERY Left x2 ARTHROSCOPY SHOULDER WITH ROTATOR CUFF REPAIR Right 05/15/2022 Performed by Chepe Ingram MD at [facility] DEBRIDEMENT Right 05/15/2022 Performed by Chepe Ingram MD at [facility] DECOMPRESSION OF SUBACROMIAL SPACE WITH PARTIAL ACROMIOPLASTY Right 05/15/2022 Performed by Chepe Ingram MD at [facility] INJECTION BLOCK EPIDURAL STEROID LUMBAR/SACRAL: L 4/5 WU N/A 04/22/2021 Performed by Pete Silver MD at [facility] INJECTION BLOCK SACROILIAC JOINT Left 03/27/2023 Performed by Pete Silver MD at [facility] CERVICAL OR THORACIC EPIDURAL BLOCK WITH STEROIDS: C67 WU N/A 01/29/2018 Performed by Pete Silver MD at [facility] LUMBAR OR SACRAL EPIDURAL BLOCK WITH STEROIDS: L45 WU N/A 10/15/2018 Performed by Pete Silver MD at [facility] MEDIAL BRANCH NERVE BLOCK: bilat L45 51 Bilateral 07/30/2018 Performed by Pete Silver MD at [facility] SPINE TRANSFORAMINAL: left C 5,6 Nroot Left 01/09/2023 Performed by Pete Silver MD at [facility] LAPAROSCOPIC CHOLECYSTECTOMY N/A 09/16/2016 Performed by Juan Ramon Jean MD at [facility] LIVER BIOPSY EMA PROCEDURE Right 05/15/2022 Performed by Chepe Ingram MD at [facility] NASAL SURGERY REPAIR HERNIA UMBILICAL 09/16/2016 Performed by Juan Ramon Jean MD at [facility] TONSILLECTOMY Family History Family History Problem [...] 5 blood-glucose meter (TRUE METRIX GLUCOSE METER) [facility], use to test BLOOD SUGAR TWICE DAILY, [...] , Rfl: lancets (UNILET LANCET) 28 gauge [facility], Use to test BLOOD SUGAR TWICE DAILY, [...] on 04/28/2023), Disp: 30 tablet, Rfl: 0 iqrsqpwz-ztgk-EJ-calcium &mins (THERAGRAN-M) 9 mg iron-400 mcg tablet, [...] a bilateral screening mammogram on 03/16/2023 through [facility]. Her breast tissue is almost entirely fatty. There was a 1 cm mass in the posterior upper-outer right breast 17 cm from the nipple. They thought this was likely a lymph node but recommended that she return for additional imaging. She had the imaging done in [place]. They did a right diagnostic mammogram and [...] with any concerns. documented in this encounter [facility] 05-12-2023 Miscellaneous Notes Spoke with patient and scheduled with Dr. Robledo 4/2. Patient voiced understanding of appointment details. Patient was offered sooner dates but declined per her availability. documented in this encounter [facility] 05-12-2023 Telephone encounter Note Spoke with patient and scheduled with Dr. Robledo 4/2. Patient voiced understanding of appointment details. Patient was offered sooner dates but declined per her availability. [facility] 04-30-2023 Miscellaneous Notes Last Office Visit: 04/28/2023 Next Office Visit: Visit date not found Last Urine Drug Screen: No results found for: BENZOSCRN OARRS appropriate documented in this encounter [facility] 04-30-2023 Telephone encounter Note Last Office Visit: 04/28/2023 Next Office Visit: Visit date not found Last Urine Drug Screen: No results found for: BENZOSCRN OARRS appropriate [facility] 04-28-2023 History of Presen t illness Narrative [facility] [address] [place] [address] Patient: Karma Banegas Sex: female : 1980 [...] spine (09/2022 last visit for 11/05/22) at [facility] with no relief Back: 10/15/18 [...] Anxiety Asthma Back pain Bipolar 1 disorder ([facility]) Breast disorder enlarged lymph nodes in both breast Carpal tunnel syndrome Chronic pain disorder Deep vein thrombosis ([facility]) blood clot in left arm Dental disease [...] night 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 ([facility]) 11/10/2017 Visual impairment Past Surgical History: Procedure Laterality Date ANKLE SURGERY Left x2 ARTHROSCOPY SHOULDER WITH ROTATOR CUFF REPAIR Right 05/15/2022 Performed by Chepe Ingram MD at [facility] DEBRIDEMENT Right 05/15/2022 Performed by Chepe Ingram MD at [facility] DECOMPRESSION OF SUBACROMIAL SPACE WITH PARTIAL ACROMIOPLASTY Right 05/15/2022 Performed by Chepe Ingram MD at [facility] INJECTION BLOCK EPIDURAL STEROID LUMBAR/SACRAL: L 4/5 WU N/A 04/22/2021 Performed by Pete Silver MD at [facility] INJECTION BLOCK SACROILIAC JOINT Left 03/27/2023 Performed by Pete Silver MD at [facility] INJECTION CERVICAL OR THORACIC EPIDURAL BLOCK WITH STEROIDS: C67 WU N/A 01/29/2018 Performed by Pete Silver MD at [facility] INJECTION LUMBAR OR SACRAL EPIDURAL BLOCK WITH STEROIDS: L45 WU N/A 10/15/2018 Performed by Pete Silver MD at [facility] INJECTION MEDIAL BRANCH NERVE BLOCK: bilat L45 51 Bilateral 07/30/2018 Performed by Pete Silver MD at [facility] SPINE TRANSFORAMINAL: left C 5,6 Nroot Left 01/09/2023 Performed by Pete Silver MD at [facility] LAPAROSCOPIC CHOLECYSTECTOMY N/A 09/16/2016 Performed by Juan Ramon Jean MD at [facility] LIVER BIOPSY EMA PROCEDURE Right 05/15/2022 Performed by Chepe Ingram MD at [facility] NASAL SURGERY REPAIR HERNIA UMBILICAL 09/16/2016 Performed by Juan Ramon Jean MD at [facility] TONSILLECTOMY Allergies Allergen Reactions Metformin Severe [...] [facility] 04/30/23 1141 documented in this encounter [facility] 04-28-2023 Instructions Pegcosta Conrad CNA - 04/28/2023 [...] nearest emergency room. documented in this encounter [facility] 04-20-2023 Hospital Discharg e instructions Keith Urbina APRN - CNP - 04/20/2023 1:50 PM EST Increase fluid Tylenol Motrin for cough Continue home medications The following attachments cannot be sent through Care Everywhere.Head Injury: Closed: General Info (Burkinan)Cervical Strain (Burkinan)documented in this encounter [facility] 03-31-2023 [...] medications prescribed to someone other than her. Make Ready Worker reiterated this to patient. Patient's pharmacy was confirmed with her. Order pended for review and signature. [facility] Tele[facility] encounter Note Patient calls today [...] are prescribed [facility] someone other than [facility]. [facility]23 Telephone encounter Note Is she still taking prozac? What dosage? Any other antidepressants? [facility] 03-31-2023 Telephone encounter Note Call placed to patient to confirm whether or not she is taking Prozac or other antidepressants. Patient states she is taking 40 mg Prozac daily. That is the only antidepressant that she takes. She is prescribed Latuda and Lamictal to treat Bipolar. [facility] 03-31-2023 Telephone encounter Note Can try cymbalta 30mg once daily [facility] 03-31-2023 Telephone encounter Note Call placed to patient to inform her of provider's response. Patient is also educated not to take medications that are prescribed to someone other than her. Patient voices that she is aware that she should not be taking medications prescribed to someone other than her. Make Ready Worker reiterated this to patient. Patient's pharmacy was confirmed with her. Order pended for review and signature. [facility] 03-05-2023 Evaluation note Encounter Date Diagnosis Assessment [...] was counseling done by myself, Rhina ROBERTSON. [employer] Other 01-01-2024 Hospital Discharge instructions* Discharge Instructions* Sil Sullivan DO - 03/02/2023 7:49 PM EST Please follow-up with your GI doctor, trial enema at home, return to the ER for worsening abdominalpain, inability to pass gas, or nausea, vomiting * Attachments The following attachments cannot be sent through Care Everywhere. * Constipation (Burkinan) [facility] Miscellaneous Notes* Telephone Encounter - Argenis Storm [...] when she was under his care in [place]. She is currently taking Meloxicam that helps [...] She states whatever . [facility]* Telephone Encounter [...] when she was under his care in [place]. She is currently taking Meloxicam that helps [...] add Dr. Silver on the note. [facility]. [facility]12-22-2023 Telephone encounter Note* Telephone Encounter - Pete Silver MD - 02/20/2023 10:04 AM EST Discussed with nurse, I agree with Fartun's treatment plan going forward. [facility]12-22-2023 Telephone encounter Note* Telephone Encounter - UMESH Hodge - 02/20/2023 10:04 AM EST No Rx for tramadol. I have never written prescription for bra so I would not know how to proceed with anything like that. [facility]12-22-2023 Telephone encounter Note* Telephone Encounter - Argenis Storm RN - 02/20/2023 10:04 AM EST Patient aware of response. She states whatever . [facility]12-20-2023 Evaluation note* Encounter Date Diagnosis Assessment Notes Treatment Notes Treatment Clinical Notes Jan, Constipation, unspecified constipation type (ICD-10 - K59.00) Jan, Constipation (ICD-10 - K59.00) [employer] Other 12-12-2023 Miscellaneous Notes* Telephone Encounter - [...] and has f[facility] appt [facility] [id number] Telephone encounter Note* Telephone Encounter - Margaux Olea CST - 02/10/2023 8:18 AM EST Received denial letter for an SI Inj. It is noted in prior requests, the member's chronic pain is related to discogenic causes with improvement in symptoms with shots directed the discogenic disorder. It is not noted why the source of the chronic pain is now related to sacroiliac joint. [facility] [id number] Telephone encounter Note* Telephone Encounter - UMESH [...] sufficient reason to deny the current request. [employer] [id number] Telephone encounter Note* Telephone Encounter - Alfredito William - 02/10/2023 8:18 AM EST GOT APPROVAL [facility] [employer] [id number] Telephone encounter Note* Telephone Encounter - Maty Fulton RN - 02/10/2023 8:18 AM EST Pt is scheduled 03/27 for procedure and has f/u appt [facility] [employer] [id number] Evaluation note* Encounter Date Diagnosis Assessment Notes [...] R10.9) Jan, Rectal bleed (ICD-10 - K62.5) [employer] Other 11-16-2023 Evaluation note* Encounter Date Diagnosis [...] was counseling done by myself, Rhina ROBERTSON. [employer] Other 11-08-2023 Evaluation note* Encounter Date Diagnosis [...] HAVE PATIENT START DOCUSATE 3 CAPSULES DAILY. [employer] Other 06-29-2023 Evaluation note* Encounter Date Diagnosis Assessment Notes Treatment Notes Treatment Clinical Notes Jul, Obesity (ICD-10 - E66.9) Jul, BMI 34.0-34.9,adult (ICD-10 - Z68.34) Jul, Other Summary of Visi t: (A) discussed continuing to work on small goals until stress decreases and she has the energy to increase goals (B) discussed healhtier choices at [place]- food blog reviewed (C) reviewed food storage tips for keeping produce fresh longer Patient set the following goals: - NEW: continue to choose sugar free beverages- not reviewed [employer] Other 05-30-2023 Evaluation note* Encounter Date Diagnosis [...] was counseling done by myself, Rhina ROBERTSON. [employer] Other 03-21-2023 Evaluation note* Encounter Date Diagnosis [...] was counseling done by myself, Rhina ROBERTSON. [employer] Other 02-07-2023 Evaluation note* Encounter Date Diagnosis [...] set the following goals: not reviewed today [employer] Other 02-07-2023 Evaluation note* Encounter Date Diagnosis [...] was counseling done by myself, Rhina ROBERTSON. [employer] Other 12-28-2022 Evaluation note* Encounter Date Diagnosis [...] patient set personal goal using given handout. [employer] Other 12-27-2022 Evaluation note* Encounter Date Diagnosis [...] was counseling done by myself, Rhina ROBERTSON. [employer] Other 12-01-2022 NotePROCEDURE: XR ANKLE LT MIN [...] Electronically authenticated by: ONEL CLARK Date: 2022-01-29 22:30[facility]12-01-2022 NotePROCEDURE: XR ANKLE LT MIN [...] Electronically authenticated by: ONEL CLARK Date: 2022-01-29 22:30[facility]11-15-2022 Evaluation note* Encounter Date Diagnosis [...] was counseling done by myself, Rhina ROBERTSON. [employer] Other 10-05-2022 Evaluation note* Encounter Date Diagnosis [...] was counseling done by myself, Rhina ROBERTSON. [employer] Other 08-30-2022 Evaluation note* Encounter Date Diagnosis Assessment Notes Treatment Notes Treatment Clinical Notes Sep, Fatty liver (ICD-10 - K76.0) ENCOURAGED WEIGHT LOSS Sep, Obesity (BMI 30-39.9) (ICD-10 - E66.9) [employer] Other 08-23-2022 Hospital Discharge instructions* Discharge Instructions* Stanley Almonte PA-C - 10/22/2021 2:03 PM EDT Follow-up with primary care doctor 7 to 10 days for reevaluation. Take Motrin 800 mg as directed with food. Start eardrops left ear as directed. Promptly return to emergency department for new, changing or worsening of symptoms or other concerns. [facility] [employer] Phone: evaluation + Plan note No data available for this section [facility]* Diagnosis Pilonidal cyst- Primary Pilonidal cyst without mention of abscess documented in this encounter [employer] Phone: evaluation note* Diagnosis Acute diffuse otitis externa of left ear- Primary documented in this encounter [facility] [employer] Phone: evaluation noteNo InformationNort [employer] Other Evaluation note* Diagnosis Constipation, unspecified constipation type- Primary documented in this encounter [facility] [employer] noteNo assessment information available [facility] Work Phone: Evaluation note* Diagnosis Closed head injury, initial encounter- Primary Fall due to slipping on ice or snow, initial encounter Acute cervical myofascial strain, initial encounter documented in this encounter [facility] [employer] note* Diagnosis Lumbosacral spondylosis without myelopathy- Primary [facility] this encounter [facility] Diagnosis Mass of upper outer quadrant of right breast- Primary Abnormal mammogram Abnormal mammogram, unspecified Symptomatic mammary hypertrophy documented in this encounter [facility]* Diagnosis Onset Date Resolution Status ADHD acute BMI 36.0-36.9,adult acute Constipation acute Diabetes mellitus with hyperglycemia acute Fatty liver acute IBS (irritable bowel syndrome) acute Obesity acute Shifting sleep-work schedule, affecting sleep acute Constipation acute Elevated liver function tests acute Fatty liver acute IBS (irritable bowel syndrome) acute [facility] Work Phone: history general Narrative - Reported* Type Description Date Medical History PTSD Medical History DIVERTICULITOUS Surgical History 2 BACK INJECTIONS 2014 Surgical History LEFT ANKLE 2002 Surgical History CHOLECYSTECTOMY Hospitalization History SEE ABOVE [employer] Other Hiscdfi general Narrative - Reported* Type Description Date Medical History PTSD Medical History DIVERTICULITOUS Medical History bipolar Medical History ADHD Surgical History 2 BACK INJECTIONS 2014 Surgical History LEFT ANKLE 2002 Surgical History CHOLECYSTECTOMY Surgical History nasal surgery Hospitalization History SEE ABOVE [employer] Other Hiszthf general Narrative - Reported* Type Description Date Medical History PTSD Medical History DIVERTICULITOUS Medical History bipolar Medical History ADHD Surgical History 2 BACK INJECTIONS 2014 Surgical History LEFT ANKLE 2002 Surgical History CHOLECYSTECTOMY Surgical History nasal surgery Surgical History right Rotator surgery 05-15-22 Hospitalization History SEE ABOVE [employer] Other Hissclu general Narrative - Reported* Type Description Date Medical History PTSD Medical History DIVERTICULITOUS Medical History bipolar Medical History ADHD Medical History rotator cuff tear Surgical History 2 BACK INJECTIONS 2014 Surgical History LEFT ANKLE 2002 Surgical History CHOLECYSTECTOMY Surgical History nasal surgery Surgical History right Rotator surgery 05-15-22 Hospitalization History SEE ABOVE [employer] Other Hiscefb general Narrative - Reported* Type Description Date Medical History PTSD Medical History DIVERTICULITOUS Medical History bipolar Medical History ADHD Medical History rotator cuff tear Surgical History 2 BACK INJECTIONS 2014 Surgical History LEFT ANKLE 2002 Surgical History CHOLECYSTECTOMY Surgical History nasal surgery Surgical History right Rotator surgery 05-15-22 Surgical History Neck injections/root burnt 12/31 Hospitalization History SEE ABOVE [employer] Other Hisxvvo general Narrative - Reported* Type Description Date Medical History PTSD Medical History DIVERTICULITOUS Medical History bipolar Medical History ADHD Medical History rotator cuff tear Surgical History 2 BACK INJECTIONS 2014 Surgical History LEFT ANKLE 2002 Surgical History CHOLECYSTECTOMY Surgical History nasal surgery Surgical History right Rotator surgery 05-15-22 Surgical History Neck injections/root burnt 12/31 Hospitalization History SEE ABOVE Hospitalization History [facility]st[facility] 03-02-2023 [employer] Other Hospital Discharge instructions* Attachments The following attachments cannot be sent through Care Everywhere. * Pilonidal Abscess (Burkinan) documented in this encounterB[facility] Just [facility] [employer] Work Phone: Hospital Discharge instructions No data available for this section [facility] SystemInstructionsNot on filedocumented in this encounter [facility] SystemInstructionsNot on filedocumented in this encounter [facility] SystemInstructionsNot on filedocumented in this encounter [facility] SystemInstructionsNot on filedocumented in this encounter [facility] SystemInstructionsNot on filedocumented in this encounter [facility] SystemProgress note No data available for this section [facility] SystemReason for visit Narrative* Consultation (Routine) - Pending Review Specialty Diagnoses / Procedures Referred By Karla t Referred To Contact Breast Surgery Diagnoses Abnormal mammogram Carmen Fisher MD [address] [place] [phone] Ila Trevizo MD [address] [place] [phone] Referral ID Status Reason Start Date Expiration Date V isits Requested Visits Authorized [id number] Pending Review 05/06/2023 05/05/2024 1 1 [employer] System Summary Purpose Family History Relationship Condition [...] [id number] Gaurav Sellers, UMESH [address] [place] [address] Referral ID Status Reason Start Date Expiration Date V isits Requested Visits Authorized [id number] Pending Review 04/28/2023 04/27/2024 1 1 Chief [...] CREATED AUTHOR AUTHOR'S ORGANIZ ATION 05/30/2022 [facility] [place] [facility] DATE CREATED AUTHOR AUTHOR'S ORGANIZ ATION 01/18/2023 [facility] DATE CREATED AUTHOR AUTHOR'S ORGANIZ ATION 06/04/2023 [facility] DATE CREATED AUTHOR AUTHOR'S ORGANIZ ATION 08/03/2023 [facility] DATE CREATED AUTHOR AUTHOR'S ORGANIZ ATION 10/10/2023 [facility] DATE CREATED AUTHOR AUTHOR'S ORGANIZ ATION 11/24/2023 [facility] DATE CREATED AUTHOR AUTHOR'S ORGANIZ ATION 11/30/2023 [facility] DATE CREATED AUTHOR AUTHOR'S ORGANIZ ATION 12/20/2023 [facility] DATE CREATED AUTHOR AUTHOR'S ORGANIZ ATION 12/22/2023 [facility] Reason for Visit (unrecogniz ed section and [...] Dispensed Refills Start Date End Da te qrdlfaus-yzducwigz-gsbuhf ortisone (CORTISPORIN) 3.5-[address]169-[address] 4 drops into the [...] Care Teams (unrecognized sec tion and content) [employer] Relationship Specialty Start Date End Date Shawna Mcfadden DO [address] [place] [address] PCP - General Family Medicine 10/12/21 [employer] Relationship Specialty Start Date End Date Shawna Mcfadden DO [address] [facility] [address] PCP - General Family Medicine 10/12/21 [employer] Relationship Specialty Start Date End Date Shawna Mcfadden DO [address] [place] [address] PCP - General Family Medicine 10/12/21 [employer] Relationship Specialty Start Date End Date Shawna Mcfadden DO [address] [place] [address] PCP - General Family Medicine 05/02/22 [employer] Relationship Specialty Start Date End Date Shawna Mcfadden DO [address] [place] [address] PCP - General Family Medicine 10/12/21 [employer] Relationship Specialty Start Date End Date Shawna Mcfadden DO [address] [place], [place] [id number] PCP - General Family Medicine 05/02/22 Team [...] Care Provider Active Start: March 18, 2023 [employer] Relationship Specialty Start Date End Date Shawna Mcfadden DO [address] [place] [address] PCP - General Family Medicine 05/02/22 [employer] Relationship Specialty Start Date End Date Shawna Mcfadden DO [address] [place] [address] PCP - General Family Medicine 10/12/21 [employer] Relationship Specialty Start Date End Date Shawna Mcfadden DO [address] [place] [address] PCP - General Family Medicine 05/02/22 [employer] Relationship Specialty Start Date End Date Shawna Mcfadden DO [address] [place] [address] PCP - General Family Medicine 10/12/21 [employer] Relationship Specialty Start Date End Date Edwarhaider Shawnajack Chase DO [address] [place] [address] PCP - General Family Medicine 05/02/22 [employer] Relationship Specialty Start Date End Date Edwarhaider Shawnajack Chase DO [address] [place] [address] PCP - General Family Medicine 05/02/22 Team Status: Active Member Role Status Dates Rory Driver , [facility] Primary Care Provider Active Team Status: Inactive Member Role Status Dates Gayathri Adams APRN Attending Provider Active Start: May 21, 2023 End: May 21, 2023 Rory Driver , [facility] Primary Care Provider Active Start: May 21, 2023 End: May 21, 2023 Team Status: Inactive Member Role Status Dates Jan Garg APRN Attending Provider Active Start: May 21, 2023 End: May 21, 2023 Rory Driver , [facility] Primary Care Provider Active Start: May 21, 2023 End: May 21, 2023 [employer] Relationship Specialty Start Date End Date Vicky McfaddentyDO [address] [place] [address] PCP - General Family Medicine 10/12/21 [employer] Relationship Specialty Start Date End Date Shawna Mcfadden DO [address] [place] [address] PCP - General Family Medicine 10/12/21 [employer] Relationship Specialty Start Date End Date Loreto Mcneal APRN - [employer]NAGER [employer] [address] [facility] [place] [address] PCP - General 11/11/23 [employer] Relationship Specialty Start Date End Date Fredis LoretoCONCETTA monroe - JO ANN [address] [facility] [place] [address] PCP - General 11/11/23 Goals (unrecognized section [...] BE BASED ON THE PRIMARY CLINICAL RECORDS. [employer] provides no warranty or guarantee of the accuracy or completeness of information in this document.
[2024-01-10 16:56] VITALS: BP 126/92; PULSE 108; TEMP 37.1; O2SAT 98; BMI 36.3
--- NOTE | 2024-01-10 16:58 | ED_ITS ---
HPI HPI - General Adult General Chief complaint: Abdominal Pain Stated complaint: Kidney Stone Time Seen by Provider: 01/10/24 16:54 History of Present Illness HPI narrative: Patient is a 43-year-old female presents to the ER with concerns of left flank pain and kidney stone. Patient was seen in the ER on 01/[address] of the abdomen and pelvis. Patient has scheduled urology follow-up on Thursday in [place]. Patient states she has had continued pain, did have a prescription called in for Toradol but has not been able to go and get it yet. Patient notes she vomited once today, pain is in the left flank and the sharp pain now is in the left groin region which appears to have progressed from preceding 2 days. Patient has a known history of kidney stones and even has a 0.3 cm stone in the right kidney. She denies any fevers or chills. I have a high pain tolerance. Any chest pain or shortness of breath, she admits that narcotic medications make her itchy. Patient has been using ice, no evidence of vesicular rash. May have a used ice to long on the left lower abdomen noted. Related Data Home Medications ?Medication ?Instructions ?Recorded ?Confirmed Bifidobacterium infantis 4 mg 4 mg PO DAILY 10/24/23 01/08/24 capsule (Align) ascorbic acid (vitamin C) 500 mg 500 mg PO BID 10/24/23 01/08/24 tablet (Vitamin C) cholecalciferol (vitamin D3) 50 50 mcg PO DAILY 10/24/23 01/08/24 mcg (2,000 unit) capsule ciclopirox 0.77 % topical cream 1 applic topical Q12H 10/24/23 01/08/24 duloxetine 60 mg capsule,delayed 60 mg PO DAILY 10/24/23 01/08/24 release empagliflozin 25 mg tablet 25 mg PO DAILY 10/24/23 01/08/24 (Jardiance) famotidine 40 mg tablet 40 mg PO DAILY 10/24/23 01/08/24 fluoxetine 60 mg tablet 60 mg PO DAILY 10/24/23 01/08/24 gabapentin 300 mg capsule 300 mg PO Q12H 10/24/23 01/08/24 lamotrigine 200 mg tablet 200 mg PO DAILY 10/24/23 01/08/24 liraglutide 0.6 mg/0.1 mL (18 mg/3 0.6 mg subcut Q24H 10/24/23 01/08/24 mL) subcutaneous pen injector ([facility]) 3-Ramon) lisdexamfetamine 20 mg capsule 70 mg PO DAILY 10/24/23 01/08/24 (Vyvanse) lurasidone 120 mg tablet 120 mg PO DAILY 10/24/23 01/08/24 multivitamin with folic acid 400 1 tab PO DAILY 10/24/23 01/08/24 mcg tablet (Daily-Karely (with folic acid)) pioglitazone 30 mg tablet 30 mg PO DAILY 10/24/23 01/08/24 rosuvastatin 10 mg tablet 10 mg PO DAILY 10/24/23 01/08/24 sumatriptan succinate 100 mg tablet 100 mg PO PRN migraine headache 10/24/23 trazodone 50 mg tablet 50 mg PO DAILY 10/24/23 01/08/24 vitamin B complex 1 tab PO Q24H 10/24/23 01/08/24 albuterol sulfate 0.63 mg/3 mL 0.63 mg inhalation TID PRN 11/16/23 01/08/24 solution for nebulization bronchospasm albuterol sulfate 90 mcg/actuation 2 inh inhalation QID PRN shortness 11/16/23 01/08/24 aerosol inhaler (Proventil HFA) of breath or wheezing biotin injectioin .every other week 11/16/23 fluticasone propionate 50 1 spray intranasal DAILY PRN 11/16/23 01/08/24 mcg/actuation nasal allergy symptoms spray,suspension (24 Hour Allergy Relief) invizia 11/16/23 mupirocin 2 % topical ointment topical 11/16/23 nystatin 100,000 unit/gram topical topical 11/16/23 cream rizatriptan 10 mg tablet (Maxalt) See Rx Instructions PO .COMPLEX 11/16/23 01/08/24 tizanidine 4 mg tablet 8 mg .hs 11/16/23 tramadol 50 mg tablet mg 11/16/23 ferrous sulfate 325 mg (65 mg mg 01/08/24 iron) tablet (FeroSul) Previous Rx's ?Medication ?Instructions ?Recorded cyclobenzaprine 10 mg tablet 10 mg PO TID PRN muscle spasm #90 11/16/23 tabs diclofenac sodium 75 mg 75 mg PO BID PRN pain #60 tabs 11/16/23 tablet,delayed release ketorolac 10 mg tablet 10 mg PO Q8H PRN pain 5 days #15 01/09/24 tabs Allergies Allergy/AdvReac Type Severity Reaction Status Date / Time cephalexin (From Keflex) Allergy Intermediate Rash Verified 01/10/24 17:02 citalopram (From Celexa) Allergy Intermediate Rash Verified 01/10/24 17:02 metformin Allergy Intermediate Nausea Verified 01/10/24 17:02 Opioid HPI Opioid Management Most Recent Opioid Data: Last Pain Scale 6 01/10/24 17:23 01/10/24 Last MAR Pain Assessment 01/10/24 17:23 Ur Phencyclidine Scrn Negative (NEGATIVE) 10/24/23 05:14 10/01 06/23 Review of Systems ROS Constitutional Denies: fever or chills Eyes Denies: change in vision Ears, nose, mouth, and throat Denies: throat pain, neck pain or throat swelling Cardiovascular Denies: chest pain, palpitations or edema Respiratory Denies: shortness of breath Gastrointestinal Reports: abdominal pain (Left flank), nausea and vomiting (1) Musculoskeletal Reports: back pain (left flank) Neurological Denies: headache Psychiatric Denies: anxiety Hematologic/Lymphatic Denies: easy bruising PFSH PFSH Social History Little interest or pleasure in doing things: not at all Feeling down, depressed, or hopeless: not at all Exam Narrative Exam Narrative: Nurses notes and vital signs reviewed and patient is not hypoxic. General: The patient appears well and in no apparent distress. Patient is resting comfortably on cart. Skin: Warm, dry, no pallor noted. No evidence of zoster like rash, minimal erythema noted in the left groin/flank area from ice pack , no evidence of cellulitis. no blistering Head: Normocephalic, atraumatic Neck: Supple, trachea mid-line, no tenderness, no lymphadenopathy Eye: Pupils are equal, round and reactive to light, EOMI Ears, Nose, Mouth, and Throat: TM are clear, normal light reflex, oral mucosa is moist, no posterior oropharynx erythema or hypertrophy, uvula is mid-line Cardiovascular: Regular Rate and Rhythm Respiratory: Patient is in no distress, no accessory muscle use, lungs are clear to auscultation, no wheezing, rales or rhonchi. Chest Wall: no tenderness Back: non-tender midline or right paravertebral, no CVA tenderness, + tenderness left flank Musculoskeletal: normal ROM, no tenderness, no swelling GI: Normal bowel sounds, no tenderness to palpation, no masses appreciated. No rebound, guarding, or rigidity noted. Abdomen Nonsurgical. Neurological: A&O x4 Psychiatric: Cooperative Constitutional Vital Signs, click to edit/add: Last Vital Signs Temp 98.8 F 01/10/24 16:56 Pulse 108 H 01/10/24 16:56 Resp 18 01/10/24 16:56 BP 126/92 H 01/10/24 16:56 Pulse Ox 98 01/10/24 16:56 O2 Del Method Room Air 01/10/24 16:56 Course Vital Signs Vital signs: Vital Signs Temperature 98.8 F 01/10/24 16:56 Pulse Rate 108 H 01/10/24 16:56 Respiratory Rate 18 01/10/24 16:56 Blood Pressure 126/92 H 01/10/24 16:56 Pulse Oximetry 98 01/10/24 16:56 Oxygen Delivery Method Room Air 01/10/24 16:56 Temperature 98.8 F 01/10/24 16:56 Pulse Rate 108 H 01/10/24 16:56 Respiratory Rate 18 01/10/24 16:56 Blood Pressure 126/92 H 01/10/24 16:56 Pulse Oximetry 98 01/10/24 16:56 Oxygen Delivery Method Room Air 01/10/24 16:56 Medical Decision Making [facility] Narrative Medical decision making narrative: Patient medicated with IV Toradol, after reviewing her labs from previous visit and patient not getting her medications filled, a 1 L IV fluid bolus was hung in case of dehydration. Patient's nausea resolved with IV Zofran. She did receive a prophylactic dose of Benadryl in case she required additional pain medicines. On reevaluation she reported having minimal to no pain but that she also has a very high pain tolerance. She describes her discomfort as more of a cramp in the left side but tolerable. She is drinking fluid at this time and will try to provide a urine sample. Has had a history of iron infusion in the past, her last CBC appeared normal. Recommend that she get iron studies outpatient. Patient states the last time she was low it was shortly after getting blood. Patient able to provide urinalysis, she is mostly frustrated as she has had to miss work, unable to pass the stone on her left. She does have follow-up with urologist in [place] scheduled for Thursday. She has been taking her Flomax daily, she did not get the Toradol prescription filled but her able to go to the pharmacy and get this filled for her during her stay. She did not require any additional pain medicines. She is able to tolerate p.o. fluids at this time. We discussed her urine culture showing group B strep but will hold on antibiotic treatment as she has Lamisil orally for chronic yeast infection given her Jardiance use. Patient understands she may return to the ER if symptoms worsen or new symptoms develop. Medical Records Medical records reviewed: Yes I reviewed the patient's medical records Medical records narrative: IMPRESSION: 1. There is a 0.3 cm calculus near the left ureterovesicular junction with mild left hydroureter and hydronephrosis. 2. Nonobstructive right renal calculi. 3. Status post cholecystectomy. 4. Colonic diverticulosis without evidence of acute inflammation. 5. Normal appendix. 6. Hepatomegaly. Electronically authenticated by: Rena AVALOS Date: 01/08/2024 05:43 Lab Data Labs: Lab Results 01/10/24 01/10/24 Range/Units 17:09 18:10 Sodium 141 (136-145) mmol/L Potassium 4.2 (3.5-5.1) mmol/L Chloride 104 (98-107) mmol/L Carbon Dioxide 26.2 (21.0-32.0) mmol/L Anion Gap 15.0 BUN 14.0 (7.0-18.0) mg/dL Creatinine 0.80 (0.55-1.02) mg/dL Est GFR ( Amer) >60 (>=60 mL/min/1.73m^2) Est GFR (Non-Af Amer) >60 (>=60 mL/min/1.73m^2) BUN/Creatinine Ratio 17.5 Glucose 118 H (74-106) mg/dL Calcium 9.3 (8.5-10.1) mg/dL Urine Color Lt. yellow (YELLOW) Urine Clarity Clear (CLEAR) Urine pH 6.0 (5.0-9.0) Ur Specific [place] <=1.005 A (1.005-1.025) Urine Protein Negative (NEG/TRACE) mg/dL Urine Glucose (UA) >=1000 A (NEGATIVE) mg/dL Urine Ketones Negative (NEGATIVE) mg/dL Urine Occult Blood Large A (NEGATIVE) Urine Nitrite Negative (NEGATIVE) Urine Bilirubin Negative (NEGATIVE) Urine Urobilinogen 0.2 (0.2-1.0) EU/dL Ur Leukocyte Esterase Negative (NEGATIVE) Urine RBC 20-50 A (0-2) #/HPF Urine WBC 0-2 A (NONE SEEN) #/HPF Ur Squamous Epith Cells Few A (NONE/RARE) #/LPF Urine Crystals None seen (None Seen) #/HPF Urine Bacteria Trace A (NONE SEEN) #/HPF Urine Casts None seen (NONE SEEN) #/LPF Urine Mucus None seen (NONE SEEN) Ur Culture Indicated? No Discharge Plan Discharge Chief Complaint: Abdominal Pain Clinical Impression: Ureterolithiasis, Calculus of right kidney Patient Disposition: Home, Self-Care Time of Disposition Decision: 18:34 Condition: Good Prescriptions / Home Meds: No Action ascorbic acid (vitamin C) [Vitamin C] 500 mg tablet 500 mg PO BID Align 4 mg capsule 4 mg PO DAILY cholecalciferol (vitamin D3) 50 mcg (2,000 unit) capsule 50 mcg PO DAILY ciclopirox 0.77 % cream 1 applic TOPICAL Q12H duloxetine 60 mg capsule,delayed release(DR/EC) 60 mg PO DAILY Jardiance 25 mg tablet 25 mg PO DAILY famotidine 40 mg tablet 40 mg PO DAILY fluoxetine 60 mg tablet 60 mg PO DAILY gabapentin 300 mg capsule 300 mg PO Q12H lamotrigine 200 mg tablet 200 mg PO DAILY liraglutide [Victoza 3-Ramon] 0.6 mg/0.1 mL (18 mg/3 mL) pen injector 0.6 mg SUBCUT Q24H lisdexamfetamine [Vyvanse] 20 mg capsule 70 mg PO DAILY lurasidone 120 mg tablet 120 mg PO DAILY multivitamin with folic acid [Daily-Karely (with folic acid)] 400 mcg tablet 1 tab PO DAILY pioglitazone 30 mg tablet 30 mg PO DAILY rosuvastatin 10 mg tablet 10 mg PO DAILY sumatriptan succinate 100 mg tablet 100 mg PO PRN (Reason: migraine headache) trazodone 50 mg tablet 50 mg PO DAILY Rx Instructions: HS vitamin B complex Tablet 1 tab PO Q24H diclofenac sodium 75 mg tablet,delayed release (DR/EC) 75 mg PO BID PRN (Reason: pain) Qty: 60 2RF cyclobenzaprine 10 mg tablet 10 mg PO TID PRN (Reason: muscle spasm) Qty: 90 2RF tizanidine 4 mg tablet 8 mg .hs nystatin 100,000 unit/gram cream TOPICAL mupirocin 2 % ointment TOPICAL tramadol 50 mg tablet rizatriptan [Maxalt] 10 mg tablet See Rx Instructions .ROUTE .COMPLEX Rx Instructions: take 1 tab at onset of headache; if no relief may repeat 1 tab after at least 2 hrs; max = 3 tabs/24 hr albuterol sulfate [Proventil HFA] 90 mcg/actuation HFA aerosol inhaler 2 inh inhalation QID PRN (Reason: shortness of breath or wheezing) fluticasone propionate [24 Hour Allergy Relief] 50 mcg/actuation spray,suspension 1 spray intranasal DAILY PRN (Reason: allergy symptoms) Rx Instructions: administer into each nostril albuterol sulfate 0.63 mg/3 mL solution for nebulization 0.63 mg inhalation TID PRN (Reason: bronchospasm) biotin injectioin .every other week invizia ferrous sulfate [FeroSul] 325 mg (65 mg iron) tablet ketorolac 10 mg tablet 10 mg PO Q8H PRN (Reason: pain) 5 Days Qty: 15 0RF Rx Instructions: Do not take with other NSAID medications. Print Language: Cambodian Instructions: Ureteral Stones (ED) Additional Instructions: Keep appt with Urology, take prior medication as prescribed Referrals: Loreto Mcneal NP [Primary Care Provider] - 1 week
[2024-01-10] MEDS: 0.9 % SODIUM CHLORIDE 1,000 ML 999 ML IV (17:22)
[2024-01-10] MEDS: DIPHENHYDRAMINE HCL 50 MG/ML VIAL 25 MG IV (17:23)
[2024-01-10] MEDS: KETOROLAC TROMETHAMINE 30 MG/ML VIAL IVP (17:23)
[2024-01-10] MEDS: ONDANSETRON PF 4 MG/2 ML VIAL IV (17:24)
[2024-01-10 17:31] LABS: BUN Creatinine Ratio 17.5; Calcium 9.3 mg/dL (8.5-10.1); Carbon Dioxide 26.2 mmol/L (21.0-32.0); Chloride 104 mmol/L (98-107); Estimated GFR (African America >60 (>=60 mL/min/1.73m^2); Estimated GFR (Non-African Ame >60 (>=60 mL/min/1.73m^2); Glucose 118 mg/dL (74-106); Potassium 4.2 mmol/L (3.5-5.1); Sodium 141 mmol/L (136-145)
[2024-01-10 18:15] LABS: Bilirubin Urine NEGATIVE (NEGATIVE); Blood Urine LARGE (NEGATIVE); Clarity Urine CLEAR (CLEAR); Color Urine LT. YELLOW (YELLOW); Glucose Urine UA >=1000 mg/dL (NEGATIVE); Ketones Urine NEGATIVE (NEGATIVE); Leukocyte Esterase Urine NEGATIVE (NEGATIVE); Nitrite Urine NEGATIVE (NEGATIVE); Protein Urine NEGATIVE (NEG/TRACE); Specific Gravity Urine <=1.005 (1.005-1.025); Urobilinogen Urine 0.2 EU/dL (0.2-1.0)
[2024-01-10 18:16] LABS: Urine Microscopic Indicated YES
[2024-01-10 18:24] LABS: RBC Urine 20-50 #/HPF (0-2)
[2024-01-10 18:25] LABS: Bacteria Urine TRACE #/HPF (NONE SEEN); Cast Seen? NONE SEEN #/LPF (NONE SEEN); Crystals Seen? None Seen #/HPF (None Seen); Mucus Urine NONE SEEN (NONE SEEN); Squamous Epithelial Cell Urine FEW #/LPF (NONE/RARE); Urine Culture Indicated NO; WBC Urine 0-2 #/HPF (NONE SEEN)
== END 2024-01-10 18:49 | disposition home or self-care (01) ==
PROVIDERS: Personal Emergency Response Attendant; Emergency Provider Emergency Medicine; PCP Nurse Practitioner Family
DX: N20.2 Calculus of kidney with calculus of ureter (principal); Z87.442 Personal history of urinary calculi
CPT/HCPCS: 36415; 80048; 81001; 96374; 96375; 99284; J1200; J1885; J2405

== ENCOUNTER 2024-01-11 09:23 | Day surgery (SDC) | payer OTHER, SELFPAY ==
[2024-01-11 09:50] VITALS: BP 121/74; PULSE 103; TEMP 36.1; O2SAT 100
[2024-01-11 09:56] LABS: Glucometer 128 mg/dL (74-106)
[2024-01-11 10:47] VITALS: BP 125/71; PULSE 105; O2SAT 95
[2024-01-11 10:49] VITALS: BP 119/64; PULSE 107; O2SAT 92
--- NOTE | 2024-01-11 10:51 | W.PM.PROCNOT ---
Date of procedure: 01/11/24 Pre-op diagnosis: Pain due to lumbar stenosis with neurogenic claudication Post-op diagnosis: same as pre-op Procedure: Procedure: Bilateral L5-S1 transforaminal epidural steroid injection Medications: Bupivacaine 0.25% 2cc, lidocaine 2% 1cc, kenalog 80mg The patient was seen and examined in the preoperative holding area.? Informed consent was obtained and placed on the chart.? Patient was brought to the medical procedure unit and placed in the prone position where a timeout was completed verifying the correct patient, procedure site, position, and planned special equipment using sterile aseptic technique.? Under direct fluoroscopic visualization a 25-gauge Quincke tipped spinal needle was advanced at level left L5-S1 to the designated neural foramen where contrast dye was injected to show adequate spread.? There was no evidence of vascular or adverse uptake.? Epidural spread was appreciated.? The above-mentioned injectate was then placed in a 1.5 mL aliquot preceded by negative aspiration.? The needle was removed. The same procedure, at the same level, was completed on the opposite side. ? Patient was taken to the postprocedural recovery area and monitored for an appropriate length of time before found suitable for discharge in the accompaniment of a responsible adult. Anesthesia: Local Surgeon: Ugo Bourgeois Pathology: none sent Condition: stable Disposition: no change
[2024-01-11] MEDS: BUPIVACAINE HCL 0.25% PF 25 MG/10 ML VIAL INJ (10:52)
[2024-01-11] MEDS: 0.9 % SODIUM CHLORIDE 10 ML SYRINGE - SALINE FLUSH INJ (10:52)
[2024-01-11] MEDS: IOHEXOL 240 MG/ML - 10 ML VIAL 24 MG INJ (10:52)
[2024-01-11] MEDS: LIDOCAINE HCL 2% 400 MG/20 ML MDV 4 ML INJ (10:52)
[2024-01-11] MEDS: TRIAMCINOLONE ACETONIDE 40 MG/ML VIAL 80 MG INJ (10:53)
== END 2024-01-11 10:56 | disposition home or self-care (01) ==
LOC: SURGOUT 09:24
PROVIDERS: PCP Nurse Practitioner Family; Visit Provider Anesthesiology
DX: M48.062 Spinal stenosis, lumbar region with neurogenic claudication (principal)
CPT/HCPCS: 36415; 64483; 82948; J0665; J3301; Q9966

== ENCOUNTER 2024-01-20 10:05 | Outpatient (OUT) | payer OTHER, SELFPAY ==
--- NOTE | 2024-01-20 10:40 | P.CN_ITS ---
Consult Note: HPI Data of Consult Patient: known to practice within the last 3 years Consult date: 11/16/23 Requesting Physician: Nancy Lipscomb NP Primary Care Provider: Loreto Mcneal NP Consult Narrative Reason for consult: low back, left leg pain Narrative: 43yof who presents for evaluation. worsening low back pain with radiation into left lower extremity. engages in biweekly chiropractic therapy >6 weeks, without lasting benefit. has engaged in >6 weeks of provider directed home exercises, without lasting benefit. most recent advanced imaging was >2 years ago. has had previous lumbar esis, with good benefit. has used flexeril, tizanidine, mobic, voltaren, tramadol, norco. denies adverse med side effects. recently underwent lumbar MRI with results below. recent bilateral L5-S1 TFESI providing moderate relief, continues to have bilateral SIJ pain. cc:: CC: Nancy Lipscomb NP Review of Systems ROS Status of ROS 10 or more systems reviewed and unremark able except as noted in history and below Musculoskeletal Reports: back pain and joint pain; Denies: extremity pain PFSH PFSH Social History Little interest or pleasure in doing things: not at all Feeling down, depressed, or hopeless: not at all Meds Home Medications and Allergies Home Medications ?Medication ?Instructions ?Recorded ?Confirmed ?Type Bifidobacterium infantis 4 mg 4 mg PO DAILY 10/24/23 01/11/24 History capsule (Align) ascorbic acid (vitamin C) 500 mg 500 mg PO BID 10/24/23 01/11/24 History tablet (Vitamin C) cholecalciferol (vitamin D3) 50 50 mcg PO DAILY 10/24/23 01/11/24 History mcg (2,000 unit) capsule ciclopirox 0.77 % topical cream 1 applic topical Q12H 10/24/23 01/11/24 History duloxetine 60 mg capsule,delayed 60 mg PO DAILY 10/24/23 01/11/24 History release empagliflozin 25 mg tablet 25 mg PO DAILY 10/24/23 01/11/24 History (Jardiance) famotidine 40 mg tablet 40 mg PO DAILY 10/24/23 01/11/24 History fluoxetine 60 mg tablet 60 mg PO DAILY 10/24/23 01/11/24 History gabapentin 300 mg capsule 300 mg PO Q8H 10/24/23 01/11/24 History lamotrigine 200 mg tablet 200 mg PO DAILY 10/24/23 01/11/24 History liraglutide 0.6 mg/0.1 mL (18 mg/3 0.6 mg subcut Q24H 10/24/23 01/11/24 History mL) subcutaneous pen injector ([facility] 3-Ramon) lisdexamfetamine 20 mg capsule 70 mg PO DAILY 10/24/23 01/11/24 History (Vyvanse) lurasidone 120 mg tablet 120 mg PO DAILY 10/24/23 01/11/24 History multivitamin with folic acid 400 1 tab PO DAILY 10/24/23 01/11/24 History mcg tablet (Daily-Karely (with folic acid)) pioglitazone 30 mg tablet 30 mg PO DAILY 10/24/23 01/11/24 History rosuvastatin 10 mg tablet 10 mg PO DAILY 10/24/23 01/11/24 History sumatriptan succinate 100 mg tablet 100 mg PO PRN migraine headache 10/24/23 History trazodone 50 mg tablet 50 mg PO DAILY 10/24/23 01/11/24 History vitamin B complex 1 tab PO Q24H 10/24/23 01/08/24 History albuterol sulfate 0.63 mg/3 mL 0.63 mg inhalation TID PRN 11/16/23 01/11/24 History solution for nebulization bronchospasm albuterol sulfate 90 mcg/actuation 2 inh inhalation QID PRN shortness 11/16/23 01/11/24 History aerosol inhaler (Proventil HFA) of breath or wheezing biotin injectioin .every other week 11/16/23 History cyclobenzaprine 10 mg tablet 10 mg PO TID PRN muscle spasm #90 11/16/23 01/11/24 Rx tabs diclofenac sodium 75 mg 75 mg PO BID PRN pain #60 tabs 11/16/23 01/11/24 Rx tablet,delayed release fluticasone propionate 50 1 spray intranasal DAILY PRN 11/16/23 01/11/24 History mcg/actuation nasal allergy symptoms spray,suspension (24 Hour Allergy Relief) invizia 11/16/23 History mupirocin 2 % topical ointment topical 11/16/23 History nystatin 100,000 unit/gram topical topical 11/16/23 History cream rizatriptan 10 mg tablet (Maxalt) See Rx Instructions PO .COMPLEX 11/16/23 01/11/24 History tramadol 50 mg tablet 50 mg PO 11/16/23 History ferrous sulfate 325 mg (65 mg 325 mg PO DAILY 01/08/24 01/11/24 History iron) tablet (FeroSul) ketorolac 10 mg tablet 10 mg PO Q8H PRN pain 5 days #15 01/09/24 Rx tabs docusate sodium 100 mg capsule 300 mg PO DAILY 01/11/24 01/11/24 History linaclotide 290 mcg capsule 290 mcg PO DAILY 01/11/24 01/11/24 History (Linzess) Allergies Allergy/AdvReac Type Severity Reaction Status Date / Time cephalexin (From Keflex) Allergy Intermediate Rash Verified 01/11/24 09:53 citalopram (From Celexa) Allergy Intermediate Rash Verified 01/11/24 09:53 metformin Allergy Intermediate Nausea Verified 01/11/24 09:53 Exam Constitutional Documenting provider has reviewed patient's vital signs: yes Common normals: no apparent distress, oriented x3, healthy appearing, alert and well nourished General appearance: cooperative HENMT Common normals: normocephalic, hearing grossly normal bilaterally and moist oral mucous membranes Head and scalp: normocephalic Eye Common normals: PERRL Pupil: PERRL Neck & C-Spine Common normals: full ROM General: normal visual inspection Chest Common normals: inspection of chest normal Respiratory Common normals: normal respiratory effort, no retractions and no use of accessory muscles Back & Pelvis Lumbar spine/lower back: ROM limited, pain with ROM, lumbar spinal tenderness and straight leg raise negative bilaterally; no paraspinal muscle tenderness and no paraspinal muscle spasm Sacroiliac joints: SI joint(s) abnormal Other: positive facet loading bilateral sij positive anil(patricks), gaenslens, thigh thrust, compression test sensation intact BLE strength 5/5 in BLE Neuro Common normals: oriented x3, CN's II-XII intact bilaterally, moves all extremities, no focal motor deficits, no sensory deficits noted and deep tendon reflexes 2+ bilaterally Sensorium/orientation: alert Motor exam: strength 5/5 throughout and no movement abnormalities noted Psych Common normals: mental status grossly normal, thought process normal, cooperative, affect normal, speech normal and activity/motor behavior normal Speech: normal speech Thought process: normal thought process Results Additional Findings Additional findings: If on a controlled substance or opioids, I have checked an [place] report on this patient and there are no aberrancies noted in the prescribing history.??If on a controlled substance or opioid a drug screen was completed and reviewed within the last year, and if there has not been a drug screen completed we ordered one today to monitor higher risk, state monitored pain medication use. As part of providing excellent, safe, comprehensive care, the following was completed at our patient's visit: 1. A medication reconciliation and review to ensure accurate knowledge of current/active medications, including asking our patients to inform us about any [id number] medications or herbal remedies/nutritional supplements/alternative remedies. 2. A review to specifically ensure our patients have had annual screening for screening for depression, screening for tobacco use, and screening for unhealthy alcohol use. For concerning screenings had a discussion with the patient, provided patient education, and recommended follow-up with primary care provider when appropriate. If patient noted with a risk of falling, they received education on strength, gait, and balance training to prevent future risk of falling. Assessment and Plan Assessment and Plan (1) Sacroiliac joint dysfunction: (2) Lumbar stenosis with neurogenic claudication: (3) Lumbar spondylosis: Plan bilateral SIJ injection under fluoroscopy continue PT and HEP as tolerated continue medications through PCP f/u after injection, consider bilateral L4-5 L5-S1 MBB X2 working towards RFA for axial low back pain if needed
== END 2024-01-20 10:06 | disposition home or self-care (01) ==
LOC: PM 10:05
PROVIDERS: PCP Nurse Practitioner Family; Visit Provider Nurse Practitioner
DX: M53.3 Sacrococcygeal disorders, not elsewhere classified (principal); M48.062 Spinal stenosis, lumbar region with neurogenic claudication; M47.816 Spondylosis without myelopathy or radiculopathy, lumbar region
CPT/HCPCS: G0463

== ENCOUNTER 2024-02-01 08:10 | Day surgery (SDC) | payer OTHER, SELFPAY ==
[2024-02-01 08:35] VITALS: BP 129/73; PULSE 90; TEMP 36.3; O2SAT 99
[2024-02-01 08:40] LABS: Glucometer 132 mg/dL (74-106)
[2024-02-01 09:09] VITALS: BP 117/72; BP 122/75; PULSE 92; PULSE 94; O2SAT 100; O2SAT 99
[2024-02-01] MEDS: BUPIVACAINE HCL 0.25% PF 25 MG/10 ML VIAL 4 ML INJ (09:10)
[2024-02-01] MEDS: IOHEXOL 240 MG/ML - 10 ML VIAL 24 MG INJ (09:10)
[2024-02-01] MEDS: LIDOCAINE HCL 2% 400 MG/20 ML MDV INJ (09:11)
[2024-02-01] MEDS: TRIAMCINOLONE ACETONIDE 40 MG/ML VIAL 80 MG INJ (09:11)
--- NOTE | 2024-02-01 09:14 | W.PM.PROCNOT ---
Date of procedure: 02/01/24 Pre-op diagnosis: Pain due to bilateral sacroiliitis Post-op diagnosis: same as pre-op Procedure: Procedure: Bilateral sacroiliac joint injection Medications: Bupivacaine 0.25% 3cc, kenalog 40mg x2 After informed consent was obtained, the patient was brought to the medical procedure unit and placed in the prone position, when a timeout was completed verifying correct patient, procedure, site, positioning, implant, and/or special equipment.? The skin overlying the area was prepped and draped in standard sterile fashion using alcohol.? A 25-gauge needle was inserted towards the left sacroiliac joint under direct fluoroscopic imaging.? Needle tip was advanced until the joint was encountered.? We instilled a total of 2 mL of solution.? The same procedure was then completed on the right side.? Postoperatively needles were removed.? The patient tolerated the procedure well without complication.? The patient reported reduction in pain symptoms postoperatively. Anesthesia: Local Surgeon: Ugo Bourgeois Pathology: none sent Condition: stable Disposition: no change
== END 2024-02-01 09:16 | disposition home or self-care (01) ==
LOC: SURGOUT 08:11
PROVIDERS: PCP Nurse Practitioner Family; Visit Provider Anesthesiology
DX: M46.1 Sacroiliitis, not elsewhere classified (principal); D50.9 Iron deficiency anemia, unspecified; K90.9 Intestinal malabsorption, unspecified; Z15.09 Genetic susceptibility to other malignant neoplasm
CPT/HCPCS: 27096; 36415; 82306; 82607; 82728; 82948; 83540; 83550; 85025; J0665; J3301; Q9966

== ENCOUNTER 2024-02-01 09:28 | Outpatient (OUT) | payer OTHER, SELFPAY ==
[2024-02-01 09:46] LABS: Basophils Percent Auto 0.3 % (0.2-2.0); Eosinophils Absolute Auto 0.2 10^3/uL (0.0-0.7); Eosinophils Percent Auto 2.5 % (0.9-7.0); Hematocrit 44.7 % (36.0-48.0); Hemoglobin 14.1 g/dL (12.0-16.0); Immature Granulocytes Abs Auto 0.02 10^3/uL (0.00-0.03); Immature Granulocytes Pct Auto 0.2 % (0.0-0.5); Lymphocytes Absolute Auto 2.3 10^3/uL (1.2-3.8); Lymphocytes Percent Auto 25.7 % (20.5-60.0); Mean Corpuscular HGB Conc 31.5 g/dL (29.9-35.2); Mean Corpuscular Hemoglobin 28.6 pg (26.7-34.0); Mean Corpuscular Volume 90.7 fL (81.0-99.0); Monocytes Absolute Auto 0.7 10^3/uL (0.3-0.8); Monocytes Percent Auto 7.6 % (1.7-12.0); Neutrophils Absolute Auto 5.7 10^3/uL (1.4-6.5); Neutrophils Percent Auto 63.7 % (43.0-75.0); Platelet Count 355 10^3/uL (150-450); Red Blood Count 4.93 10^6/uL (4.20-5.40); Red Cell Distribution Width 13.6 % (11.0-15.0)
[2024-02-01 10:26] LABS: Percent Iron Saturation 13.8 %
[2024-02-02 08:23] LABS: Vitamin B12 387 pg/mL (232-1245)
== END 2024-02-01 09:29 | disposition home or self-care (01) ==
LOC: LAB 09:29
PROVIDERS: PCP Nurse Practitioner Family; Visit Provider Internal Medicine Hematology & Oncology
DX: D50.9 Iron deficiency anemia, unspecified (principal); K90.9 Intestinal malabsorption, unspecified; Z15.09 Genetic susceptibility to other malignant neoplasm
CPT/HCPCS: 36415; 82306; 82607; 82728; 83540; 83550; 85025

== ENCOUNTER 2024-02-11 09:27 | Outpatient (OUT) | payer OTHER, SELFPAY ==
--- OUTSIDE RECORDS SUMMARY | 2024-02-11 09:36 | XMS_ITS | CCD ---
Author Organization [facility] Care Team Providers Care Maintenance Data Analyst Name Role Phone Juan Ramon Jean Unavailable [...] Garg Unavailable DOMENICA OLIVA Primary Care Physician [phone] HILARY GRANADO Referring Unavailable HILARY GRANADO Attending [...] able RUMSCHLAG, SHAWNA K Referring Unavailable SERVICES, [facility] Care Unava ilable Fredis SILVESTREN - CAPACITY PLANNING ENGINEER, [place] Primary Care [facility] ider LULY ENGLISH Attending Unavailable GABY JUNE Attending Unavailable ALICIA PRESTON Attending Unavailable LAILA LIEBERMAN Attending Unavailable CINDYMOAMENA Sesay Attending Unavailable SERVICES, [facility] Primary Care Unava ilable SHAMMO, [...] Care Unavailable JORGE, CARMEN Referring Unavailable SERVICES, [facility] Primary Care Unava ilable GAURAV SELLERS Attending Unavailable RUMSCHLAG, SHAWNA K Referring Unavailable RUMSCHLAG, HSAWNA K Primary Care Unavailable Services, [facility] Primary Care Provider RUMSCHLAG, SHAWNA Primary Care Unavailable RUMSCHLAG, SHAWNA Referring Unavailable RUMSCHLAG, SHAWNA Primary Care Unavailable RUMSCHLAG, SHAWNA Referring Unavailable RUMSCHLAG, SHAWNA Primary Care Unavailable RUMSCHLAG, SHAWNA Referring Unavailable NAVEEN SANCHEZ Attending Unavailable RUMSCHLAG, SHAWNA Primary Care Unavailable RUMSCHLAG, SHAWNA Primary Care Unavailable RUMSCHLAG, SHAWNA Referring Unavailable SIL SULLIVAN Attending Unavailable RUMSCHLAG, SHAWNA Primary Care Unavailable LISETTE JUNIOR Attending Unavailable MYERHOLTZ, LORETO Primary Care Unavailable MYERHOLTZ, LORETO Primary Care Unavailable RUMSCHLAG, [...] Care Unavailable RUMSCHLAG, SHAWNA Referring Unavailable MYERHOLTZ, LROETO Primary Care Unavailable RUMSCHLAG, SHAWNA Referring Unavailable [...] Primary Care Unavailable RUMSCHLAG, SHAWNA Referring Unavailable Giedraitis , Ugo Stoddard Attending Unavailable Giedraitis , Ugo Stoddard Attending Unavailable Giedraitis , Andmelisa Stoddard Attending Unavailable Allergies Allergy Classification Reported Allergen(s) Allergy Type Date of Onset Reaction(s) Facility Cephalosporins (antibiotic) (2 sources) Cephalexin Drug Allergy 7 [facility] Serotonin Reuptake Inhibitors (SSRIs) (2 sources) Citalopram Drug Allergy 7 [facility] (20 sources) cephalexin; Translations: [Keflex] Drug Allergy 3 [facility] Repository (4 sources) citalopram; Translations: [CeleXA] Drug Allergy 3 AOF, heart palpitation [facility] Repository (20 sources) Cephalexin; Translations: [CEPHALEXIN] Drug Allergy 7 [facility] Work Phone: (20 sources) Citalopram; Translations: [CITALOPRAM] Drug Allergy 7 Hives, anaphylaxis [facility] (5 sources) metFORMIN Drug Allergy Unknown [facility] Other (20 sources) metFORMIN; Translations: [METFORMIN] Drug Allergy 3 Unknown, Unknown Reaction [facility] (11 sources) POISON DEVORAH EXTRACT; Translations: [POISON DEVORAH EXTRACT] Drug Allergy 3 [facility] (12 sources) Metformin And Related Propensity to adverse reactions to drug 4 Other (See Comments) [facility] (1 source) Cephalexin Drug Allergy 4 [facility] Repository (1 source) Citalopram Drug Allergy 4 [facility] Repository (1 source) metFORMIN Drug Allergy 4 [facility] Repository Medications Current Medications Medication Drug Class(es) Dates Sig (Normalized) Sig (Original) [id number] 200 actuat albuterol 0.09 mg/actuat metered dose inhaler (20 sources) beta2-Adrenergic Agonist Start: 07-16-2020 take 2 puff(s) by mouth every six hours as needed for wheezing albuterol (PROVENTIL HFA;VENTOLIN HFA) 90 mcg/actuation inhaler Indications: Obstructive sleep apnea syndrome INHALE 2 PUFFS BY MOUTH EVERY 6 HOURS NEEDED FOR WHEEZING 18 g 07/16/2020 Active take 2 puff(s) by in [...] Orally Once a day Active bifidobacterium animalis [id number] unt / lactobacillus acidophilus [id number] unt oral capsule (4 sources) take 1 capsule by mouth once daily probiotic (ALIGN/RISAQUAD) CAPS capsule Take 1 capsule by mouth daily ALIGN Active bifidobacterium infantis 4 mg oral capsule (14 sources) Start: 01-07-2023 take 1 capsule by mouth once daily Bifidobacterium Infantis (Align) 4 mg capsule Active 4 MG PO Daily April 29, 2023 1:00am blood-glucose meter (TRUE METRIX GLUCOSE METER) misc (8 sources) Start: 06-17-2018 blood-glucose meter (TRUE METRIX GLUCOSE METER) [facility] use to test BLOOD SUGAR TWICE DAILY 1 each 06/17/2018 Active Start: 06-17-2018 blood-glucose meter (TRUE METRIX GLUCOSE METER) [facility] use to test BLOOD SUGAR TWICE DAILY 1 each 0 06/17/2018 Active cetirizine hydrochloride 10 mg oral tablet (17 sources) Histamine-1 Receptor Antagonist Start: 02-06-2020 take 1 tablet by mouth once daily cetirizine (ZyrTEC) 10 mg tablet TAKE 1 TABLET BY MOUTH DAILY 30 tablet 5 02/06/2020 Active cholecalciferol 0.05 mg oral capsule (20 sources) Vitamin D Start: 05-21-2023 take 2000 [IU] by mouth once daily Cholecalciferol (Vitamin D3) Active 2000 UNIT PO Daily May 21, 2023 12:00am Start: 04-09-2021 take 1 capsule by mo ut in the morning cholecalciferol, vitamin D3, 2,000 units capsule Take 1 capsule (2,000 Units total) by mouth in the morning. 04/09/2021 Active take 1 capsule by mo [facility] every twenty-four hours Vitamin D3 50 [...] 10-12-2021 clindamycin (CLEOCIN) capsul e 450 mg cyclobenzaprine (2 sources) Muscle Relaxant Cyclobenzaprine HCl (FLEXERIL PO) Take by mouth in the morning and at bedtime Take 2 at night and 1 every morning Active Diclofenac (2 sources) Nonsteroidal Anti-inflammatory Drug Diclofenac Sodium (VOLTAREN PO) Take by mouth in the morning and at bedtime One every morning and two every night Active docusate sodium 100 mg oral capsule (16 sources) Start: 023 take 3 capsules by mouth every twenty-four hours Docusate Sodium 100 MG 3 CAPSULES Orally Once a day for 30 days Dec, Active Start: 01-07-2023 docusate sodiu m (COLACE) 100 mg capsule 01/07/2023 Active trulicity 3 mg/0.5ml solution pen-injector (8 sources) GLP-1 Receptor Agonist Trulicity 3 MG/0.5ML as directed Subcutaneous WEEKLY Active DULoxetine 30 mg oral tablet (12 sources) Serotonin and Norepinephrine Reuptake Inhibitor Start: 05-21-19 take 30 mg by mouth once daily Duloxetine Active 30 MG PO Daily May 21, 2023 12:00am Start: 03-31-2023 End: 04-30-2023 take 1 capsule by mouth in the morning DULoxetine (CYMBALTA) 30 mg capsule Take 1 capsule (30 mg total) by mouth in the morning. 30 capsule 3 04/30/2023 Active take 1 capsule by [facility] once daily DULoxetine (CYMBALTA) 60 MG extended [...] (68 mg total) by subdermal route once. Active Etonogestrel (Nexplanon) 68 mg implant (1 source) Start: 05-20-2023 Etonogestrel (Nexplanon) 68 mg implant Active 68 MG SUBDERMAL As Directed May 20, 2023 12:00am famotidine 40 mg oral tablet (20 sources) Histamine-2 Receptor Antagonist Start: 05-20-2023 take 40 mg by mouth once daily Famotidine Active 40 MG PO Daily May 20, 2023 12:00am Start: 10-14-2018 take 1 tablet by [facility] twice daily famotidine (PEPCID) 20 mg tablet TAKE 1 TABLET BY MOUTH TWICE DAILY 60 tablet 5 04/09/2020 Active take 2 tablets by [facility] once daily famotidine (PEPCID) 20 MG tablet Take 2 tablets by mouth daily Active take 1 tablet by [facility] every twenty-four hours Pepcid 40 MG 1 tablet Orally Once a day Active ferrous sulfate 325 mg oral tablet (20 sources) Start: 04-09-2020 take 1 tablet by mouth once daily ferrous sulfate 325 (65 FE) mg tablet TAKE 1 TABLET BY MOUTH DAILY 30 tablet 5 04/09/2020 Active fexofenadine hydrochloride 180 mg oral tablet (17 sources) Histamine-1 Receptor Antagonist Start: 05-21-2023 take 180 mg by mouth once daily Fexofenadine Active 180 MG PO Daily May 21, 2023 12:00am take 1 tablet [facility] fexofenadine (ROS) 60 mg tablet Take 1 tablet (60 mg total) by mouth in the morning. Active FLUoxetine 40 mg oral capsule (20 sources) Serotonin Reuptake Inhibitor Start: 07-14-2019 take 1 capsule by mouth in the morning FLUoxetine (PROzac) 40 mg capsule Take 1 capsule (40 mg total) by mouth in the morning. 07/14/2019 Active take 3 capsules by mouth once da dionna FLUoxetine (PROZAC) 20 MG capsule Take 3 capsules by mouth daily Active fluticasone propionate 0.05 mg/actuat metered dose nasal spray (20 sources) Corticosteroid Start: 07-16-2020 take 2 spray(s) nasal route once daily fluticasone propionate (FLONASE) 50 mcg/actuation nasal spray instill 2 (TWO) sprays in EACH nostril ONCE DAILY 16 g 07/16/2020 Active fluticasone (ANTHONY NASE) 50 MCG/ACT [...] 2023 12:00am May 21, 2023 10:34am take 3 capsules by m outh three times daily gabapentin (NEURONTIN) 100 MG capsule Take 3 capsules by mouth 3 times daily. Active take 2 capsules by m outh every twenty-four hours Gabapentin 100 MG 2 CAPSULES Orally Once a day Active hydrocortisone 10 mg/ml / neomycin 3.5 mg/ml / polymyxin b 17410 unt/ml otic solution (1 source) Aminoglycoside Antibacterial, Polymyxin-class Antibacterial, Corticosteroid Start: 10-22-2021 End: 10-29-2021 giewaeoo-hsygnmzbj-bmumawtyr isone (CORTISPORIN) [id number] 4 drops into the left ear 3 times daily for 7 days Instill into left Ear TID x 7 days 10 mL 0 10/22/2021 10/29/2021 Active hydrOXYzine hydrochloride 25 mg oral tablet (16 sources) Antihistamine Start: 10-21-2017 take 1 tablet [...] 6 (six) hours as needed for pain. Active take 1 tablet by elan th [...] mg total) by mouth in the morning. 02/13/2019 Active linaclotide 0.29 mg oral capsule (5 sources) Guanylate Cyclase-C Agonist Start: 05-21-2023 take 1 capsule by mouth once daily in the morning Linaclotide (Linzess) 290 mcg capsule Active 290 MCG PO Every morning May 21, 2023 12:00am 3 ml liraglutide 6 mg/ml pen injector (5 sources) GLP-1 Receptor Agonist Start: 05-21-2023 Liraglutide [...] mg capsule 1 capsule in the morning 01/09/2022 Active lurasidone hydrochloride 80 mg oral tablet (20 sources) Atypical Antipsychotic Start: 01-19-2020 take 1 tablet by mouth once daily at breakfast LATUDA 80 mg tablet Take 1 tablet (80 mg total) by mouth daily with breakfast. 04/17/2020 Active meloxicam 15 mg oral tablet (20 sources) Nonsteroidal Anti-inflammatory Drug Start: 05-21-2023 take 30 mg by mouth once daily Meloxicam Active 30 MG PO Daily May 21, 2023 12:00am take 1 tablet by mouth once adele y meloxicam (MOBIC) 15 MG tablet Take 1 tablet by mouth daily Active 10 ml methocarbamol 100 mg/ml injection (17 sources) Muscle Relaxant Start: 10-14-2018 Robaxin 100 [...] 1 TABLET BY MOUTH NIGHTLY 30 tablet 07/16/2020 Active yuwemhzb-qjas-LX-ca lcium &mins (THERAGRAN-M) 9 mg iron-400 mcg tablet (8 sources) pwfoyrmo-pcqe-LU -c alcium &mins (THERAGRAN-M) 9 mg iron-400 mcg tablet Take 1 tablet by mouth in the morning. Active ogxvtwjg-hrgq-RB -calcium &mins (THERAGRAN-M) 9 mg iron-400 mcg tablet Take 1 tablet by mouth in the morning. 0 Active Multivitamin preparation (20 sources) Multivitamin Act amaury Multivitamin With Folic Acid (Daily-Karely (With Folic Acid)) 400 mcg tablet (1 source) Start: 05-20-19 24 Multivitamin With Folic Acid (Daily-Karely (With Folic Acid)) 400 mcg tablet Active TAB PO May 20, 2023 12:00am naproxen 500 mg oral tablet (20 sources) Nonsteroidal Anti-inflammatory Drug Start: 12-03-19 23 take 1 tablet by mouth twice daily at mealtime naproxen (NAPROSYN) 500 MG tablet Take 1 tablet by mouth 2 times daily (with meals) for 5 days 10 tablet 10/05/2023 Active Start: 12-02-2022 take 1 tablet by elan th in the morning, then take 1 tablet by mouth at mealtime naproxen (NAPROSYN) 500 mg tablet Take 1 tablet (500 mg total) by mouth in the morning and 1 tablet (500 mg total) in the evening. Take with meals. 60 tablet 2 12/02/2022 Active NON FORMULARY (16 sources) NON FORMULARY Murillo ir, Skin & Nails - 2 gummies in the morning Active NON FORMULARY Ne osporin cream- applies to bilateral nostrils 3 times a day Active NON FORMULARY Murillo ir, Skin & Nails - 2 gummies in [...] 05/10/2020 Active plecanatide 3 mg oral tablet (6 sources) Start: 023 take 1 tablet by mouth in the morning TRULANCE 3 mg tablet Take 1 tablet by mouth in the morning. 02/27/2023 Active Start: 02-05-2023 take 1 tablet by elan th every twenty-four hours Trulance 3 MG 1 tablet Orally Once a day for 30 days Jan, Active polyethylene glycol 3350 [id number] mg / potassium chloride 2970 mg / sodium bicarbonate 6740 mg / sodium chloride 5860 mg / sodium sulfate 33435 mg powder for oral solution (2 sources) [...] Nausea, # 20 tab(s), Refills(s) 0, Pharmacy: [id number], 157, cm, 03/10/19 12:21:00 EST, Height/Length [...] 1.5 ml semaglutide 1.34 mg/ml pen injector (17 sources) Start: 01-15-2022 semaglutide 1 mg/dose (2 mg/1.5 mL) pen injector 2 mg once a week. 01/15/2022 Active Start: 01-15-2022 semaglutide 1 mg/dose [...] day Active temazepam 15 mg oral capsule (16 sources) Benzodiazepine take 1 capsule by mouth once daily as needed for sleep temazepam (RESTORIL) 15 MG capsule Take 15 mg by mouth nightly as needed for Sleep Active tiZANidine 4 mg oral tablet (20 sources) Central alpha-2 Adrenergic Agonist Start: take 8 mg by mouth once daily at bedtime Tizanidine Active 8 MG PO Daily at bedtime May 21, 2023 10:24am Start: 05-08-2021 End: 05-21-2023 take 4 mg by mouth once daily at bedtime Tizanidine Discontinued 4 MG PO Daily at bedtime May 20, 2023 12:00am May 21, 2023 10:34am Start: 05-08-2021 tiZANidine (ZA NAFLEX) 4 mg tablet Start: 10-14-2018 tizanidine 4 m g oral capsule Refills(s) 0 Start Date: 10/14/18 Status: Ordered take 2 tablets by mo [facility] every six hours as needed tiZANidine (ZANAFLEX) 4 MG tablet Take 2 tablets by mouth every 6 hours as needed Active take 2 tablets by mo [facility] every twenty-four hours tiZANidine HCl 4 MG 2 tablet Orally daily Active take 1 tablet by [facility] every twelve hours tiZANidine HCl 4 MG 1 tablet Orally TWICE A DAY Active topiramate 200 mg oral tablet (16 sources) take 1 tablet by mouth once daily topiramate (TOPAMAX) 200 MG tablet Take 200 mg by mouth daily Active traMADol hydrochloride 50 mg oral tablet (13 sources) Opioid Agonist Start: 05-20-2023 take 50 mg by mouth once daily Tramadol Active 50 MG PO Daily May 20, 2023 12:00am Ultram Active traZODone hydrochloride 50 mg oral tablet (20 sources) Serotonin Reuptake Inhibitor Start: 04-17-2020 End: 05-21-2023 traZODone (DESYREL) 50 mg tablet as needed. 04/17/2020 Active Trulance 3 MG (1 source) Start: 02-05-2023 take 1 tablet by mouth once daily Trulance 3 MG 1 tablet Orally Once a day for 30 days Jan, Active TRULICITY 3 mg/0.5 mL pen injector (8 sources) Start: 10-15-2022 TRULICITY 3 mg/0.5 mL pen injector Injects on Sundays10/15/2022 Active Start: 10-15-2022 TRULICITY 3 mg /0.5 mL pen injector Injects on Sundays 0 10/15/2022 Active Ventolin HFA 90 mcg/inh Aerosol (1 source) Start: 10-14-2018 Ventolin HFA 9 0 mcg/inh Aerosol Refill(s) 0 Start Date: 10/14/18 Status: Ordered Vitamin B Complex (8 sources) Start: 01-16-2020 take 1 tablet by mouth once daily B COMPLEX-VITAMIN B12 tablet TAKE 1 TABLET BY MOUTH DAILY 30 tablet 5 01/16/2020 Active Vitamin D (13 sources) Vitamin D Active zonisamide 100 mg oral capsule (16 sources) Anti-epileptic Agent take 1 capsule by mouth once daily zonisamide (ZONEGRAN) 100 MG capsule Take 100 mg by mouth daily Active Completed/Discontinued Medications Medication Drug Class(es) Dates Sig (Normalized) Sig (Original) ascorbic acid 500 mg oral tablet (18 sources) Vitamin C Start: 02-24-2023 End: 05-21-2023 take 1 tablet by mouth [...] May 21, 2023 11:36am polyethylene glycol 3350 52835 mg powder for oral solution (7 sources) [...] a day for 30 days Jan, Active 50 ml sodium chloride 9 mg/ml injection (1 source) Start: 01-13-2024 End: 01-13-2024 1,000 mL (10.4 mL/kg), IntraVENous, at 983.6 mL/hr, Administer over 61 Minutes, ONCE, On Thu01/13/24 at 1530, For 1 dose, For adult patients weighing > 55 kg (120 lbs.) and less than vitamin B12 (20 sources) Vitamin B12 Vitamin B12 Not- Taking/PRN Vitamin B12 Not- Taking Vitamin B12 Acti ve Problems Active Problems Problem Classification Problem Date Documented Da te Episodic/Chronic Anxiety disorders (20 sources) Posttraumatic stress disorder; [...] sources) Personal history of urinary calculi Episodic Conditions associated with dizziness or vertigo (2 sources) Dizziness; Translations: [Dizziness and giddiness] Onset: 01-13-2024 01-13-2024 Episodic Deficiency and other anemia (1 source) Anemia, unspecified; Translations: [Anemia, unspecified] Onset: 12-21-2023 Episodic Deficiency and other anemia (1 source) Iron deficiency anemia, unspecified; Translations: [Iron deficiency anemia, unspecified] Onset: 12-21-2023 Episodic Diabetes mellitus with complications (20 sources) Hyperglycemia due to type 2 diabetes mellitus; Translations: [Type 2 diabetes mellitus with hyperglycemia] Chronic Diabetes mellitus without complication (8 sources) 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; Translations: [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s] Onset: 11-10-2017 11-10-2017 Chronic Diverticulosis and diverticulitis (8 sources) Diverticulitis; Translations: [Diverticulitis of intestine, part [...] circumstances] Onset: 03-05-2023 Episodic Biliary tract disease (8 sources) Acute cholecystitis; Translations: [Acute cholecystitis] Onset: 09-15-2016 09-15-2016 Episodic Complications of surgical procedures or medical care (8 sources) Abscess; Translations: [Infection following a procedure, [...] OTH VIRAL DZ] Onset: 02-25-2022 Episodic Lymphadenitis (8 sources) Axillary lymphadenopathy; Translations: [Localized enlarged lymph nodes] Onset: 05-10-2020 05-10-2020 Episodic Mood disorders (8 sources) Mood disorders Onset: 05-02-2020 05-02-2020 Nonspecific chest pain (4 sources) Chest pain, unspecified; Translations: [Chest pain] Onset: 10-05-2023 Episodic Other connective tissue disease (1 source) [...] Spondylosis; intervertebral disc disorders; other back problems (18 sources) 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; Translations: [Intervertebral disc 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] Onset: 12-02-2022 12-16-2022 Episodic Sprains and strains (2 sources) Strain of neck muscle; Translations: [Strain of muscle, fascia and tendon at neck level, initial encounter] Onset: 04-20-2023 04-20-2023 Episodic Unclassified (8 sources) Onset: 02-10-2020 02-10-2020 Results Test Name Value Interpretation Reference Range Facility CBC with Auto Differentialon 01-13-2024 Basophils (Bld) [#/Vol] 0.06 10*3/uL [facility] Basophils/100 WBC (Bld) 0 % 0 - 2 % [facility] Eosinophils (Bld) [#/Vol] 0.10 10*3/uL [facility] Eosinophils/100 WBC (Bld) 1 % 1 - 4 % [facility] Erythrocyte distribution width (RBC) [Ratio] 13.6 % 11.8 - 14.4 % [facility] Hematocrit (Bld) [Volume fraction] 43.3 % 36.3 - 47.1 % [facility] Hemoglobin (Bld) [Mass/Vol] 14.0 g/dL 11.9 - 15.1 g/dL [facility] Immature granulocytes (Bld) [#/Vol] 0.10 10*3/uL [facility] Immature granulocytes/100 WBC (Bld) 1 % High 0 [facility] Interpretation and review of laboratory results Abnormal [facility] Lymphocytes/100 WBC (Bld) 22 % Low 24 - 43 % [facility] Lymphocytes/100 WBC (Bld) 2.98 % [facility] MCH (RBC) [Entitic mass] 28.5 pg 25.2 - 33.5 pg [facility] MCHC (RBC) [Mass/Vol] 32.3 g/dL 28.4 - 34.8 g/dL [facility] MCV (RBC) [Entitic vol] 88.2 fL 82.6 - 102.9 fL [facility] Monocytes/100 WBC (Bld) 8 % 3 - 12 % [facility] Monocytes/100 WBC (Bld) 1.12 % [facility] Neutrophils/100 WBC (Bld) 68 % High 36 - 65 % [facility] Nucleated RBC/100 WBC (Bld) [Ratio] 0.0 % 0.0 per 100 WBC [facility] Platelet mean volume (Bld) [Entitic vol] 10.0 fL 8.1 - 13.5 fL [facility] Platelets (Bld) [#/Vol] 452 10*3/uL [facility] RBC (Bld) [#/Vol] 4.91 10*6/uL 3.95 - 5.11 m/uL [facility] Segmented neutrophils/100 WBC (Bld) 9.08 % High [facility] WBC other (Bld) [#/Vol] 13.4 High [facility] CBC with Diffon 01-13-2024 Abs. Basophil 0.06 k/uL Normal 0.00-0.20 [facility] Comment on above: Performed By: #### C DP, CP #### [facility] [address] [place] [address] Clinical Quality Assurance Associate: Domenica Velázquez MD Abs.Imm.Granulocyte 0.10 k/uL Normal 0.00-0.30 [facility] Comment on above: Performed By: #### C DP, CP #### [facility] [address] [place] [address] [address] [place], [place] [address] Clinical Quality Assurance Associate: Domenica Velázquez MD Abs.Neutrophil (Seg) 9.08 k/uL High 1.50-8.10 [facility] Comment on above: Performed By: #### C DP, CP #### [address] [place], [place] [address] Clinical Quality Assurance Associate: Domenica Velázquez MD Basophils/100 WBC (Bld) 0 % Normal 0-2 [facility] Comment on above: Performed By: #### C DP, CP #### [address] [place], [place] [address] Clinical Quality Assurance Associate: Domenica Velázquez MD Eosinophils (Bld) [#/Vol] 0.10 10*3/uL Normal 0.00-0.44 [facility] Comment on above: Performed By: #### C DP, CP #### [address] [place], [facility] Clinical Quality Assurance Associate: Domenica Velázquez MD Eosinophils/100 WBC (Bld) 1 % Normal 1-4 [facility] Comment on above: Performed By: #### C DP, CP #### [address] [place], [place] [address] Clinical Quality Assurance Associate: Domenica Velázquez MD Erythrocyte distribution width (RBC) [Ratio] 13.6 % Normal 11.8-14.4 [facility] Comment on above: Performed By: #### C DP, CP #### [address] [place], [facility] Clinical Quality Assurance Associate: Domenica Velázquez MD Hematocrit (Bld) [Volume fraction] 43.3 % Normal 36.3-47.1 [facility] Comment on above: Performed By: #### C DP, CP #### [facility] [address] [place], [place] [id number] Clinical Quality Assurance Associate: Domenica Velázquez MD Hemoglobin (Bld) [Mass/Vol] 14.0 g/dL Normal 11.9-15.1 [facility] Comment on above: Performed By: #### C DP, CP #### [facility] [address] [place], [place] [id number] Clinical Quality Assurance Associate: Domenica Velázquez MD Immature granulocytes/100 WBC (Bld) 1 % High 0 [facility] Comment on above: Performed By: #### C DP, CP #### [facility] [address] [place], [place] [id number] Clinical Quality Assurance Associate: Domenica Velázquez MD Lymphocytes (Bld) [#/Vol] 2.98 10*3/uL Normal 1.10-3.70 [facility] Comment on above: Performed By: #### C DP, CP #### [facility] [address] [place] [address] [address] [place], [place] [id number] Clinical Quality Assurance Associate: Domenica Velázquez MD Lymphocytes/100 WBC (Bld) 22 % Low 24-43 [facility] Comment on above: Performed By: #### C DP, CP #### [address] [place], [place] [id number] Clinical Quality Assurance Associate: Domenica Velázquez MD MCH (RBC) [Entitic mass] 28.5 pg Normal 25.2-33.5 [facility] Comment on above: Performed By: #### C DP, CP #### [facility] [address] [place], [place] [id number] Clinical Quality Assurance Associate: Domenica Velázquez MD MCHC (RBC) [Mass/Vol] 32.3 g/dL Normal 28.4-34.8 [facility] Comment on above: Performed By: #### C DP, CP #### [facility] [address] [place] [address] Clinical Quality Assurance Associate: Domenica Velázquez MD MCV (RBC) [Entitic vol] 88.2 fL Normal 82.6-102.9 [facility] Comment on above: Performed By: #### C DP, CP #### [facility] [address] [place], [place] [id number] Clinical Quality Assurance Associate: Domenica Velázquez MD Monocytes (Bld) [#/Vol] 1.12 10*3/uL Normal 0.10-1.20 [facility] Comment on above: Performed By: #### C DP, CP #### [address] [place] [address] Clinical Quality Assurance Associate: Domenica Velázquez MD Monocytes/100 WBC (Bld) 8 % Normal 3-12 [facility] Comment on above: Performed By: #### C DP, CP #### [address] [place], [place] [address] Clinical Quality Assurance Associate: Domenica Velázquez MD Neutrophil (Seg) 68 % High 36-65 [facility] Comment on above: Performed By: #### C DP, CP #### [address] [place], [place] [id number] Clinical Quality Assurance Associate: Domenica Velázquez MD NRBC Automated 0.0 per 100 WBC Normal 0.0 [facility] Comment on above: Performed By: #### C DP, CP #### [address] [place], [facility] Clinical Quality Assurance Associate: Domenica Velázquez MD Platelet mean volume (Bld) [Entitic vol] 10.0 fL Normal 8.1-13.5 [facility] Comment on above: Performed By: #### C DP, CP #### [address] [place] [address] Clinical Quality Assurance Associate: Domenica Velázquez MD Platelets (Bld) [#/Vol] 452 10*3/uL Normal 138-453 [facility] Comment on above: Performed By: #### C DP, CP #### [facility] [address] [place] [address] Clinical Quality Assurance Associate: Domenica Velázquez MD RBC (Bld) [#/Vol] 4.91 10*6/uL Normal 3.95-5.11 [facility] Comment on above: Performed By: #### C DP, CP #### [facility] [address] [place] [address] Clinical Quality Assurance Associate: Domenica Velázquez MD WBC (Bld) [#/Vol] 13.4 10*3/uL High 3.5-11.3 [facility] Comment on above: Performed By: #### C MANUELA, CP #### [facility] [address] [place] [address] Clinical Quality Assurance Associate: Domenica Velázquez MD [facility] 01-13-2024 Albumin [Mass/Vol] 4.4 g/dL 3.5 - 5.2 g/dL [facility] Albumin/Globulin [Mass ratio] 1.3 {ratio} 1.0 - 2.5 [facility] ALP [Catalytic activity/Vol] 87 U/L 35 - 104 U/L [facility] ALT [Catalytic activity/Vol] 25 U/L 10 - 35 U/L [facility] Anion gap [Moles/Vol] 11 mmol/L 9 - 16 mmol/L [facility] AST [Catalytic activity/Vol] 17 U/L 10 - 35 U/L [facility] Bilirubin [Mass/Vol] mg/dL 0.00 - 1.20 mg/dL [facility] Calcium [Mass/Vol] 9.9 mg/dL 8.6 - 10. 4 mg/dL [facility] Chloride [Moles/Vol] 101 mmol/L 98 - 10 7 mmol/L [facility] CO2 [Moles/Vol] 25 mmol/L 20 - 31 mmol/L [facility] Creatinine [Mass/Vol] 0.7 mg/dL 0.50 - 0.90 mg/dL [facility] Est, Emily Carreon Rate - PINF [facility] Comment on above: These results are not intended for use [...] following therapy that affects renal tubular secretion. Glucose [Mass/Vol] 112 mg/dL High 74 - 99 mg/dL [facility] Interpretation and review of laboratory results Abnormal [facility] Potassium [Moles/Vol] 4.2 mmol/L 3.7 - 5.3 mmol/L [facility] Protein [Mass/Vol] 7.8 g/dL 6.6 - 8.7 g/dL [facility] Sodium [Moles/Vol] 137 mmol/L 136 - 145 mmol/L [facility] Urea nitrogen [Mass/Vol] 24 mg/dL High 6 - 20 mg/dL [facility] Urea nitrogen/Creatinine [Mass ratio] 34 mg/mg High 9 - 20 [facility] Comp Metabolic Profon 2023 Albumin [Mass/Vol] 4.4 g/dL Normal 3.5-5.2 [facility] Comment on above: Performed By: #### C DP, CP #### [facility] [address] [place] [address] Clinical Quality Assurance Associate: Domenica Velázquez MD Albumin/Glob Ratio 1.3 Normal 1.0-2.5 [facility] Comment on above: Performed By: #### C DP, CP #### [facility] [address] [place] [address] Clinical Quality Assurance Associate: Domenica Velázquez MD Alkaline Phos 87 U/L Normal 35-104 [facility] Comment on above: Performed By: #### C DP, CP #### [facility] [address] [place] [address] Clinical Quality Assurance Associate: Domenica Velázquez MD ALT [Catalytic activity/Vol] 25 U/L Normal -35 [facility] Comment on above: Performed By: #### C DP, CP #### [facility] [address] [place], [place] [phone] Clinical Quality Assurance Associate: Domenica Velázquez MD Anion gap [Moles/Vol] 11 mmol/L Normal 9-16 [facility] Comment on above: Performed By: #### C DP, CP #### [facility] [address] [place], [place] [phone] Clinical Quality Assurance Associate: Domenica Velázquez MD AST [Catalytic activity/Vol] 17 U/L Normal -35 [facility] Comment on above: Performed By: #### C DP, CP #### [facility] [address] [place], [place] 3097183 Clinical Quality Assurance Associate: Domenica Velázquez MD Bilirubin [Mass/Vol] mg/dL Normal 0.00-1.20 [facility] Comment on above: Performed By: #### C DP, CP #### [facility] [address] [place], [place] 110[address]183 Clinical Quality Assurance Associate: Domenica Velázquez MD BUN/CRE Ratio 34 High 9-20 [facility] Comment on above: Performed By: #### C DP, CP #### [facility] [address] [place], [place] 6271683 Clinical Quality Assurance Associate: Domenica Velázquez MD Calcium [Mass/Vol] 9.9 mg/dL Normal 8.6-10.4 [facility] Comment on above: Performed By: #### C DP, CP #### [facility] [address] [place], [place] [phone] Clinical Quality Assurance Associate: Domenica Velázquez MD Chloride [Moles/Vol] 101 mmol/L Normal 98-107 [facility] Comment on above: Performed By: #### C DP, CP #### [facility] [address] [place] [address] Clinical Quality Assurance Associate: Domenica Velázquez MD CO2 [Moles/Vol] 25 mmol/L Normal 20-31 [facility] Comment on above: Performed By: #### C DP, CP #### [facility] [address] [place] [address] Clinical Quality Assurance Associate: Domenica Velázquez MD Creatinine [Mass/Vol] 0.7 mg/dL Normal 0.50-0.90 [facility] Comment on above: Performed By: #### C DP, CP #### [facility] [address] [place] [address] Clinical Quality Assurance Associate: Domenica Velázquez MD GFR/1.73 sq M.predicted among non-blacks MDRD (S/P/Bld) [Vol rate/Area] mL/min/{1.73_m2} Normal >60 [facility] Comment on above: Result Comment: These results [...] tubular secretion. Performed By: #### C DP, CP #### [facility] [address] [place] [address] Clinical Quality Assurance Associate: Domenica Velázquez MD Glucose [Mass/Vol] 112 mg/dL High 74-99 [facility] Comment on above: Performed By: #### C DP, CP #### [facility] [address] [place] [address] Clinical Quality Assurance Associate: Domenica Velázquez MD Potassium [Moles/Vol] 4.2 mmol/L Normal 3.7-5.3 [facility] Comment on above: Performed By: #### C DP, CP #### [facility] [address] [place] [address] Clinical Quality Assurance Associate: Domenica Velázquez MD Protein [Mass/Vol] 7.8 g/dL Normal 6.6-8.7 [facility] Comment on above: Performed By: #### C DP, CP #### [facility] [address] [place], [place] [phone] Clinical Quality Assurance Associate: Domenica Velázquez MD Sodium [Moles/Vol] 137 mmol/L Normal 136-145 [facility] Comment on above: Performed By: #### C DP, CP #### [facility] [address] [place] [address] Clinical Quality Assurance Associate: Domenica Velázquez MD Urea nitrogen [Mass/Vol] 24 mg/dL High 6-20 [facility] Comment on above: Performed By: #### C DP, CP #### [facility] [address] [place] [address] Clinical Quality Assurance Associate: Domenica Velázquez MD Microscopic Urinalysison Bacteria LM Ql (Urine sed) 1+ Abnormal None [facility] Epithelial cells LM.HPF (Urine sed) [#/Area] 0 TO 2 [facility] Interpretation and review of laboratory results Abnormal [facility] Mucus Ql (Urine sed) TRACE Abnormal None [facility] RBC LM.HPF (Urine sed) [#/Area] 0 TO 2 [facility] WBC LM.HPF (Urine sed) [#/Area] None [facility] TSHon 01-13-2024 TSH Qn 1.57 m[IU]/L [facility] Thyroid Stim. Horm.on 2023 Thyroid Stim. Horm. 1.57 uIU/mL Normal 0.27-4.20 [facility] Comment on above: Performed By: #### T SH #### [facility] [address] [place] [address] Clinical Quality Assurance Associate: Domenica Velázquez MD UA w/Reflex Cultureon 2023 Bilirubin, SemiQt,Ur Negative Normal NEG [facility] Comment on above: Performed By: #### U MICAO, UAX #### [facility] [address] [place], [place] [phone] Clinical Quality Assurance Associate: Domenica Velázquez MD Blood, Urine Negative Normal NEG [facility] Comment on above: Performed By: #### U MICAO, UAX #### [facility] [address] [place], [place] 7171183 Clinical Quality Assurance Associate: Domenica Velázquez MD Clarity (U) Clear Normal CLEAR [facility] Comment on above: Performed By: #### U MICAO, UAX #### [facility] [address] [place], [place] 9243283 Clinical Quality Assurance Associate: Domenica Velázquez MD Color (U) Yellow Normal YEL [facility] Comment on above: Performed By: #### U MICAO, UAX #### [facility] [address] [place] [address] Clinical Quality Assurance Associate: Domenica Velázquez MD Glucose Ql (U) 3+ mg/dL Abnormal NEG [facility] Comment on above: Performed By: #### U MICAO, UAX #### [facility] [address] [place] [address] [place] [address] Clinical Quality Assurance Associate: Domenica Velázquez MD Ketones Ql (U) Negative Normal NEG [facility] Comment on above: Performed By: #### U MICAO, UAX #### [facility] [address] [place], [place] 6263583 Clinical Quality Assurance Associate: Domenica Velázquez MD Leukocyte esterase Test strip Ql (U) Negative Normal NEG [facility] Comment on above: Performed By: #### U MICAO, UAX #### [facility] [address] [place], [place] 3972283 Clinical Quality Assurance Associate: Domenica Velázquez MD Nitrite,Ur Negative Normal NEG [facility] Comment on above: Performed By: #### U MICAO, UAX #### [facility] [address] [place], [place] 3498583 Clinical Quality Assurance Associate: Domenica Velázquez MD PH,Ur 6.0 Normal 5.0-9.0 [facility] Comment on above: Performed By: #### U MICAO, UAX #### [facility] [address] [place] [address] Clinical Quality Assurance Associate: Domenica Velázquez MD Protein Ql (U) Negative Normal NEG [facility] Comment on above: Performed By: #### U MICAO, UAX #### [address] [place], [place] 3928683 Clinical Quality Assurance Associate: Domenica Velázquez MD Spec. [place],Ur >1.030 High 1.010-1.02 0 [facility] Comment on above: Performed By: #### U MICAO, UAX #### [address] [place], [place] [address]36[address]83 Clinical Quality Assurance Associate: Domenica Velázquez MD Urobilinogen,Ur Normal Normal 0.0-1.0 [facility] Comment on above: Performed By: #### U MICAO, UAX #### [address] [place], [place] [phone] Clinical Quality Assurance Associate: Domenica Velázquez MD Urinalysis with Reflex to Cu ltureon 01-13-2024 Bilirubin Ql (U) Negative NEGATIVE [facility] Clarity (U) Clear Clear [facility] Color (U) Yellow Yellow [facility] Glucose Test strip (U) [Mass/Vol] 3+ Abnormal NEGATIVE mg/dL [facility] Hemoglobin Auto test strip Ql (U) Negative NEGATIVE [facility] Interpretation and review of laboratory results Abnormal [facility] Ketones (U) [Mass/Vol] Negative NEGATIVE mg/dL [facility] Leukocyte esterase Test strip Ql (U) Negative NEGATIVE [facility] Nitrite Ql (U) Negative NEGATIVE [facility] pH (U) 6.0 [pH] 5.0 - 9.0 [facility] Protein (U) [Mass/Vol] Negative NEGATIVE mg/dL [facility] Specific gravity (U) [Rel density] High 1.010 - 1.020 [facility] Urobilinogen Qn (U) Normal 0.0 - 1. 0 EU/dL [facility] Urinalysis,Microon 4 Bacteria 1+ Abnormal NONE [facility] Comment on above: Performed By: #### U MICAO, UAX #### [facility] [address] [place] [address] Clinical Quality Assurance Associate: Domenica Velázquez MD Epithelial cells LM Ql (Urine sed) 0 TO 2 Normal 0-25 [facility] Comment on above: Performed By: #### U MICAO, UAX #### [facility] [address] [place] [address] Clinical Quality Assurance Associate: Domenica Velázquez MD Mucus Strands TRACE Abnormal NONE [facility] Comment on above: Performed By: #### U MICAO, UAX #### [facility] [address] [place], [place] [address]372483 Clinical Quality Assurance Associate: Domenica Velázquez MD Urine RBC's 0 TO 2 Normal 0-2 [facility] Comment on above: Performed By: #### U MICAO, UAX #### [facility] [address] [place] [address] Clinical Quality Assurance Associate: Domenica Velázquez MD Urine WBC's None Normal 0-5 [facility] Comment on above: Performed By: #### U MICAO, UAX #### [facility] [address] [place] [address] Clinical Quality Assurance Associate: Domenica Velázquez MD BASIC METABOLIC PANLon 12-20 Anion gap [Moles/Vol] 10 mmol/L Normal 5-15 [facility] Comment on above: Performed By: #### C BCA, BMP, FEPR, 2276-4 #### [facility] ([id number]) [address], [address] [place] [address] Calcium [Mass/Vol] 8.9 mg/dL Normal 8.5-10.5 [facility] Comment on above: Performed By: #### C BCA, BMP, FEPR, 2276-4 #### [facility] ([id number]) [address], [address] [place] [address] Chloride [Moles/Vol] 106 mmol/L Normal 98-109 [facility] Comment on above: Performed By: #### C BCA, BMP, FEPR, 2276-4 #### [facility] ([id number]) [address], [address] [place] [address] CO2 [Moles/Vol] 22 mmol/L Normal 22-32 [facility] Comment on above: Performed By: #### C BCA, BMP, FEPR, 2276-4 #### [facility] ([id number]) [address], [address] [place] [address] Creatinine [Mass/Vol] 0.70 mg/dL Normal 0.40-1.00 [facility] Comment on above: Result Comment: METH OD TRACEABLE TO IDMS STANDARD Performed By: #### C BCA, BMP, FEPR, 2276-4 #### [facility] ([id number]) [address], [address] [place] [address] eGFR (CKD-EPI) NON-RACE DEPENDENT >90 Normal >59 [facility] Comment on above: Result Comment: Reported eGFR is based on the CKD-EPI 2020 equation that does not use a race coefficient. Performed By: #### C BCA, BMP, FEPR, 2276-4 #### [facility] ([id number]) [address], [address] [place] [address] Glucose [Mass/Vol] 89 mg/dL Normal 65-99 [facility] Comment on above: Performed By: #### C BCA, BMP, FEPR, 2275-4 #### [facility] ([id number]) [address] [address] [place] [address] Potassium [Moles/Vol] 4.2 mmol/L Normal 3.5-5.0 [facility] Comment on above: Performed By: #### C BCA, BMP, FEPR, 2275-4 #### [facility] ([id number]) [address] [place] [address] Sodium [Moles/Vol] 138 mmol/L Normal 134-146 [facility] Comment on above: Performed By: #### C BCA, BMP, FEPR, 2275-4 #### [facility] ([id number]) [address] [address] [place] [address] Urea nitrogen [Mass/Vol] 18 mg/dL Normal 5-23 [facility] Comment on above: Performed By: #### C BCA, BMP, FEPR, 2275-4 #### [facility] ([id number]) [address] [address] [place] [address] CBC AND AUTO DIFFon 10-21-20 24 ABSOLUTE BASOPHIL 0.0 X10E9/L Normal 0.0-0.2 [facility] Comment on above: Performed By: #### C BCA, BMP, FEPR, 2275-4 #### [facility] ([id number]) [address] [address] [place] [address] ABSOLUTE NEUTROPHIL 5.7 X10E9/L Normal 1.5-6.6 [facility] Comment on above: Performed By: #### C BCA, BMP, FEPR, 2275-4 #### [facility] ([id number]) [address] [place] [address] Basophils/100 WBC (Bld) 0.4 % Normal [facility] Comment on above: Performed By: #### C BCA, BMP, FEPR, 2275-4 #### [facility] ([id number]) [address] [facility] [address] [place] [address] Eosinophils (Bld) [#/Vol] 0.1 10*3/uL Normal 0.0-0.4 [facility] Comment on above: Performed By: #### C BCA, BMP, FEPR, 2275- #### [facility] ([id number]) [address] [place] [address] Eosinophils/100 WBC (Bld) 1.2 % Normal [facility] Comment on above: Performed By: #### C BCA, BMP, FEPR, 2275- #### [facility] ([id number]) [address] [address] [place] [address] Erythrocyte distribution width (RBC) [Ratio] 14.4 % Normal 11.5-15.0 [facility] Comment on above: Performed By: #### C BCA, BMP, FEPR, 2275- #### [facility] ([id number]) [address] [address] [place] [address] Hematocrit (Bld) [Volume fraction] 37.4 % Normal 35-47 [facility] Comment on above: Performed By: #### C BCA, BMP, FEPR, 2275-4 #### [facility] ([id number]) [address] [address] [place] [address] Hemoglobin (Bld) [Mass/Vol] 12.4 g/dL Normal 11.7-15.5 [facility] Comment on above: Performed By: #### C BCA, BMP, FEPR, 2275-4 #### [facility] ([id number]) [address] [facility] [address] [place] [address] Lymphocytes (Bld) [#/Vol] 2.4 10*3/uL Normal 1.0-3.5 [facility] Comment on above: Performed By: #### C BCA, BMP, FEPR, 2275-4 #### [facility] ([id number]) [address] [address] [place] [address] Lymphocytes/100 WBC (Bld) 28.1 % Normal [facility] Comment on above: Performed By: #### C BCA, BMP, FEPR, 2275- #### [facility] ([id number]) [address] [address] [place] [address] MCH (RBC) [Entitic mass] 28.8 pg Normal 27-34 [facility] Comment on above: Performed By: #### C BCA, BMP, FEPR, 2275- #### [facility] ([id number]) [address] [address] [place] [address] MCHC (RBC) [Mass/Vol] 33.1 g/dL Normal 32-36 [facility] Comment on above: Performed By: #### C BCA, BMP, FEPR, 2275- #### [facility] ([id number]) [address] [address] MCV (RBC) [Entitic vol] 87 fL Normal 80-100 [facility] Comment on above: Performed By: #### C BCA, BMP, FEPR, 2275-4 #### [facility] ([id number]) [address] [address] [place] [address] Monocytes (Bld) [#/Vol] 0.3 10*3/uL Normal 0-0.9 [facility] Comment on above: Performed By: #### C BCA, BMP, FEPR, 2275-4 #### [facility] ([id number]) [address] [address] [place] [address] Monocytes/100 WBC (Bld) 3.0 % Normal [facility] Comment on above: Performed By: #### C BCA, BMP, FEPR, 2275-4 #### [facility] ([id number]) [address] [address] [place] [address] Neutrophils/100 WBC (Bld) 67.3 % Normal [facility] Comment on above: Performed By: #### C BCA, BMP, FEPR, 2275-4 #### [facility] ([id number]) [address] [address] [place] [address] Platelet mean volume (Bld) [Entitic vol] 8.8 fL Normal 7-12 [facility] Comment on above: Performed By: #### C BCA, BMP, FEPR, 2275-4 #### [facility] ([id number]) [address] [address] [place] [address] Platelets (Bld) [#/Vol] 325 10*3/uL Normal 150-450 [facility] Comment on above: Performed By: #### C BCA, BMP, FEPR, 2275-4 #### [facility] ([id number]) [address] [address] [place] [address] RBC COUNT 4.31 X10E12/L Normal 3.80-5.20 [facility] Comment on above: Performed By: #### C BCA, BMP, FEPR, 2275-4 #### [facility] ([id number]) [address] [address] [place] [address] WBC (Bld) [#/Vol] 8.4 10*3/uL Normal 4.0-11.0 [facility] Comment on above: Performed By: #### C BCA, BMP, FEPR, 2275-4 #### [facility] ([id number]) [address] [address] [place] [address] FERRITINon 12-21-2023 Ferritin [Mass/Vol] 195 ng/mL Normal 11-307 [facility] Comment on above: Performed By: #### C BCA, CMP, 58996-8, TSHR #### [facility] ([id number]) [address] [place] [address] IRON PROFILEon 12-21-2023 Iron [Mass/Vol] 53 ug/dL Normal 50-170 [facility] Comment on above: Performed By: #### C BCA, BMP, FEPR, 2276-4 #### [facility] ([id number]) [address] [place] [address] IRON BINDING 374 ug/dL Normal 250-425 [facility] Comment on above: Performed By: #### C BCA, BMP, FEPR, 2276-4 #### [facility] ([id number]) [address] [place] [address] IRON SATURATION 14 % SATURATION Low 15-50 [facility] Comment on above: Performed By: #### C BCA, BMP, FEPR, 2276-4 #### [facility] ([id number]) [address] [place] [address] CT ABDOMEN PELVIS W IV CONTR Dar [...] significant stool or gas noted. Evidence of [id number] diverticulosis of proximal sigmoid colon and descending [...] Zoë Nicole MD 10/07/23 Final result Normal [facility] Comp Metabolic Profon 2023 Albumin [Mass/Vol] 4.1 g/dL Normal 3.5-5.2 [facility] Comment on above: Performed By: #### L IP, CP, TROPI, CDP ####[address] , [place] [address] Lab Director: Domenica Velázquez MD Albumin/Glob Ratio 1.4 Normal 1.0-2.5 [facility] Comment on above: Performed By: #### L IP, CP, TROPI, CDP ####[address] , [place] [phone] Director: Domenica Velázquez MD Alkaline Phos 85 U/L Normal 35-104 [facility] Comment on above: Performed By: #### L IP, CP, TROPI, CDP ####[address] [place] [address] Lab Director: Domenica Velázquez MD ALT [Catalytic activity/Vol] 12 U/L Normal 5-33 [facility] Comment on above: Performed By: #### L IP, CP, TROPI, CDP ####[address] [place] [address] Lab Director: Domenica Velázquez MD Anion gap [Moles/Vol] 11 mmol/L Normal 9-17 [facility] Comment on above: Performed By: #### L IP, CP, TROPI, CDP ####[address] , [place] 24[address]83 Lab Director: Domenica Velázquez MD AST [Catalytic activity/Vol] 14 U/L Normal <32 [facility] Comment on above: Performed By: #### L IP, CP, TROPI, CDP ####[address] [place] [address] lab Director: Domenica Velázquez MD Bilirubin [Mass/Vol] 0.2 mg/dL Low 0.3-1.2 [facility] Comment on above: Performed By: #### L IP, CP, TROPI, CDP ####[address] , [place] [id number] lab Director: Domenica Velázquez MD BUN/CRE Ratio 30 High 9-20 [facility] Comment on above: Performed By: #### L IP, CP, TROPI, CDP ####[address] , [place] 164[address]683 lab Director: Domenica Velázquez MD Calcium [Mass/Vol] 8.8 mg/dL Normal 8.6-10.4 [facility] Comment on above: Performed By: #### L IP, CP, TROPI, CDP ####[address] , [place] 843[address]83 lab Director: Domenica Velázquez MD Chloride [Moles/Vol] 103 mmol/L Normal 98-107 [facility] Comment on above: Performed By: #### L IP, CP, TROPI, CDP ####[address] , [place] 3527[address] lab Director: Domenica Velázquez MD CO2 [Moles/Vol] 25 mmol/L Normal 20-31 [facility] Comment on above: Performed By: #### L IP, CP, TROPI, CDP ####[address] [place] [address] lab Director: Domenica Velázquez MD Creatinine [Mass/Vol] 0.6 mg/dL Normal 0.5-0.9 [facility] Comment on above: Performed By: #### L IP, CP, TROPI, CDP ####[address] [place] [address] Lab Director: Domenica Velázquez MD GFR/1.73 sq M.predicted among non-blacks MDRD (S/P/Bld) [Vol rate/Area] mL/min/{1.73_m2} Normal >60 [facility] Comment on above: Result Comment: These results [...] affects renal tubular secretion. Performed By: #### L IP, CP, TROPI, CDP ####[address] , [place] 2803383 lab Director: Domenica Velázquez MD Glucose [Mass/Vol] 92 mg/dL Normal 70-99 [facility] Comment on above: Performed By: #### L IP, CP, TROPI, CDP ####[address] [place] [address] lab Director: Domenica Velázquez MD Potassium [Moles/Vol] 3.6 mmol/L Low 3.7-5.3 [facility] Comment on above: Performed By: #### L IP, CP, TROPI, CDP ####[address] , [place] 0118283 lab Director: Domenica Velázquez MD Protein [Mass/Vol] 7.0 g/dL Normal 6.4-8.3 [facility] Comment on above: Performed By: #### L IP, CP, TROPI, CDP ####[address] [place] [address] lab Director: Domenica Velázquez MD Sodium [Moles/Vol] 139 mmol/L Normal 135-144 [facility] Comment on above: Performed By: #### L IP, CP, TROPI, CDP ####[facility] [place] , [place] 1835683 Lab Director: Domenica Velázquez MD Urea nitrogen [Mass/Vol] 18 mg/dL Normal 6-20 [facility] Comment on above: Performed By: #### L IP, CP, TROPI, CDP ####[facility] [place] , [place] 4629183 Lab Director: Domenica Velázquez MD Lipaseon 10-07-2023 Lipase [Catalytic activity/Vol] 28 U/L Normal 13-60 [facility] Comment on above: Performed By: #### L IP, CP, TROPI, CDP ####[address] , [place] 4427283 Lab Director: Domenica Velázquez MD Troponinon 10-07-2023 Troponin, High Sens <6 Normal 0-14 [facility] Comment on above: Result Comment: High Sensitivity Troponin values cannot be compared with other Troponin methodologies. Performed By: #### L IP, CP, TROPI, CDP ####[address] , [place] 0414783 Lab Director: Domenica Velázquez MD CBC with Diffon 10-06-2023 Abs. Basophil 0.03 k/uL Normal 0.00-0.20 [facility] Comment on above: Performed By: #### L IP, CP, TROPI, CDP ####[address] , [place] 1076483 Lab Director: Domenica Velázquez MD Abs.Imm.Granulocyte 0.03 k/uL Normal 0.00-0.30 [facility] Comment on above: Performed By: #### L IP, CP, TROPI, CDP ####[address], [place] [address])[phone] Director: Domenica Velázquez MD Abs.Neutrophil (Seg) 6.50 k/uL Normal 1.50-8.10 [facility] Comment on above: Performed By: #### L IP, CP, TROPI, CDP ####[address] [place] [id number])[phone] Director: Domenica Velázquez MD Basophils/100 WBC (Bld) 0 % Normal 0-2 [facility] Comment on above: Performed By: #### L IP, CP, TROPI, CDP ####[address] [place], [place] [address])[phone] Director: Domenica Velázquez MD Eosinophils (Bld) [#/Vol] 0.08 10*3/uL Normal 0.00-0.44 [facility] Comment on above: Performed By: #### L IP, CP, TROPI, CDP ####[address] , [place] [address])[phone] Director: Domenica Velázquez MD Eosinophils/100 WBC (Bld) 1 % Normal 1-4 [facility] Comment on above: Performed By: #### L IP, CP, TROPI, CDP ####[address] [place], [place] [address])[phone] Director: Domenica Velázquez MD Erythrocyte distribution width (RBC) [Ratio] 13.5 % Normal 11.8-14.4 [facility] Comment on above: Performed By: #### L IP, CP, TROPI, CDP ####[address] [place] [id number]([facility])[phone] Director: Domenica Velázquez MD Hematocrit (Bld) [Volume fraction] 40.1 % Normal 36.3-47.1 [facility] Comment on above: Performed By: #### L IP, CP, TROPI, CDP ####[address] , [place] [address] Lab Director: Domenica Velázquez MD Hemoglobin (Bld) [Mass/Vol] 13.4 g/dL Normal 11.9-15.1 [facility] Comment on above: Performed By: #### L IP, CP, TROPI, CDP ####[address] , [place] 9635883 Lab Director: Domenica Velázquez MD Immature granulocytes/100 WBC (Bld) 0 % Normal 0 [facility] Comment on above: Performed By: #### L IP, CP, TROPI, CDP ####[address] [place] [address] Lab Director: Domenica Velázquez MD Lymphocytes (Bld) [#/Vol] 2.41 10*3/uL Normal 1.10-3.70 [facility] Comment on above: Performed By: #### L IP, CP, TROPI, CDP ####[address] , [facility]83 Lab Director: Domenica Velázquez MD Lymphocytes/100 WBC (Bld) 25 % Normal 24-43 [facility] Comment on above: Performed By: #### L IP, CP, TROPI, CDP ####[address] , [place] 0543483 Lab Director: Domenica Velázquez MD MCH (RBC) [Entitic mass] 28.6 pg Normal 25.2-33.5 [facility] Comment on above: Performed By: #### L IP, CP, TROPI, CDP ####[address] , [place] 1038583 Lab Director: Domenica Velázquez MD MCHC (RBC) [Mass/Vol] 33.4 g/dL Normal 28.4-34.8 [facility] Comment on above: Performed By: #### L IP, CP, TROPI, CDP ####[address] [facility]43 Lab Director: Domenica Velázquez MD MCV (RBC) [Entitic vol] 85.7 fL Normal 82.6-102.9 [facility] Comment on above: Performed By: #### L IP, CP, TROPI, CDP ####[address] , [facility]83 Lab Director: Domenica Velázquez MD Monocytes (Bld) [#/Vol] 0.69 10*3/uL Normal 0.10-1.20 [facility] Comment on above: Performed By: #### L IP, CP, TROPI, CDP ####[address] , [facility]83 Lab Director: Domenica Velázquez MD Monocytes/100 WBC (Bld) 7 % Normal 3-12 [facility] Comment on above: Performed By: #### L IP, CP, TROPI, CDP ####[address] , [facility]83 Lab Director: Domenica Velázquez MD Neutrophil (Seg) 67 % High 36-65 [facility] Comment on above: Performed By: #### L IP, CP, TROPI, CDP ####[address] , [facility]83 Lab Director: Domenica Velázquez MD NRBC Automated 0.0 per 100 WBC Normal 0.0 [facility] Comment on above: Performed By: #### L IP, CP, TROPI, CDP ####[address] , [place] 7642583 Lab Director: Domenica Velázquez MD Platelet mean volume (Bld) [Entitic vol] 10.5 fL Normal 8.1-13.5 [facility] Comment on above: Performed By: #### L IP, CP, TROPI, CDP ####[address] , [facility]83 [facility] Director: Domenica Velázquez MD Platelets (Bld) [#/Vol] 292 10*3/uL Normal 138-453 [facility] Comment on above: Performed By: #### L IP, CP, TROPI, CDP ####[facility] [place] , [place] 3508283 Lab Director: Domenica Velázquez MD RBC (Bld) [#/Vol] 4.68 10*6/uL Normal 3.95-5.11 [facility] Comment on above: Performed By: #### L IP, CP, TROPI, CDP ####[facility] [place] , [place] 4316083 Lab Director: Domenica Velázquez MD WBC (Bld) [#/Vol] 9.7 10*3/uL Normal 3.5-11.3 [facility] Comment on above: Performed By: #### L IP, CP, TROPI, CDP ####[address] , [place] 3869[address] [facility] Director: Domenica Velázquez MD Basic Metabolic Profon 10-04 Anion gap [Moles/Vol] 10 mmol/L Normal 9-17 [facility] Comment on above: Performed By: #### C DP, BMP, DIME, TROPI #### [address] [place], [facility]12 ( Clinical Quality Assurance Associate: Domenica Velázquez MD BUN/CRE Ratio 23 High 9-20 [facility] Comment on above: Performed By: #### C DP, BMP, DIME, TROPI #### [facility] [address] [place], [place] 8219483 Clinical Quality Assurance Associate: Domenica Velázquez MD Calcium [Mass/Vol] 8.9 mg/dL Normal 8.6-10.4 [facility] Comment on above: Performed By: #### C DP, BMP, DIME, TROPI #### [facility] [address] [place] [address] Clinical Quality Assurance Associate: Domenica Velázquez MD Chloride [Moles/Vol] 105 mmol/L Normal 98-107 [facility] Comment on above: Performed By: #### C DP, BMP, DIME, TROPI #### [facility] [address] [place] [address] Clinical Quality Assurance Associate: Domenica Velázquez MD CO2 [Moles/Vol] 26 mmol/L Normal 20-31 [facility] Comment on above: Performed By: #### C DP, BMP, DIME, TROPI #### [facility] [address] [place] [address] Clinical Quality Assurance Associate: Domenica Velázquez MD Creatinine [Mass/Vol] 0.6 mg/dL Normal 0.5-0.9 [facility] Comment on above: Performed By: #### C DP, BMP, DIME, TROPI #### [facility] [address] [place] [address] Clinical Quality Assurance Associate: Domencia Velázquez MD GFR/1.73 sq M.predicted among non-blacks MDRD (S/P/Bld) [Vol rate/Area] mL/min/{1.73_m2} Normal >60 [facility] Comment on above: Result Comment: These results [...] secretion. Performed By: #### C DP, BMP, DIME, TROPI #### [facility] [address] [place] [address] Clinical Quality Assurance Associate: Domenica Velázquez MD Glucose [Mass/Vol] 96 mg/dL Normal 70-99 [facility] Comment on above: Performed By: #### C DP, BMP, DIME, TROPI #### [facility] [address] [place], [place] 0127383 Clinical Quality Assurance Associate: Domenica Velázquez MD Potassium [Moles/Vol] 3.8 mmol/L Normal 3.7-5.3 [facility] Comment on above: Performed By: #### C DP, BMP, DIME, TROPI #### [address] [place] [address] Clinical Quality Assurance Associate: Domenica Velázquez MD Sodium [Moles/Vol] 141 mmol/L Normal 135-144 [facility] Comment on above: Performed By: #### C DP, BMP, DIME, TROPI #### [address] [place], [place] 4680283 Clinical Quality Assurance Associate: Domenica Velázquez MD Urea nitrogen [Mass/Vol] 14 mg/dL Normal 6-20 [facility] Comment on above: Performed By: #### C DP, BMP, DIME, TROPI #### [address] [place], [place] 1693183 Clinical Quality Assurance Associate: Domenica Velázquez MD CBC with Diffon 10-05-2023 Abs. Basophil <0.03 Normal 0.00-0.20 [facility] Comment on above: Performed By: #### C DP, BMP, DIME, TROPI #### [address] [place], [place] 4554283 Clinical Quality Assurance Associate: Domenica Velázquez MD Abs.Imm.Granulocyte 0.03 k/uL Normal 0.00-0.30 [facility] Comment on above: Performed By: #### C DP, BMP, DIME, TROPI #### [address] [place], [place] 8029683 Clinical Quality Assurance Associate: Domenica Velázquez MD Abs.Neutrophil (Seg) 5.10 k/uL Normal 1.50-8.10 [facility] Comment on above: Performed By: #### C DP, BMP, DIME, TROPI #### [address] [place] [address] Clinical Quality Assurance Associate: Domenica Velázquez MD Basophils/100 WBC (Bld) 0 % Normal 0-2 [facility] Comment on above: Performed By: #### C DP, BMP, DIME, TROPI #### [address] [place] [address] Clinical Quality Assurance Associate: Domenica Velázquez MD Eosinophils (Bld) [#/Vol] 0.11 10*3/uL Normal 0.00-0.44 [facility] Comment on above: Performed By: #### C DP, BMP, DIME, TROPI #### [address] [place] [address] Clinical Quality Assurance Associate: Domenica Velázquez MD Eosinophils/100 WBC (Bld) 1 % Normal 1-4 [facility] Comment on above: Performed By: #### C DP, BMP, DIME, TROPI #### [address] [place] [address] Clinical Quality Assurance Associate: Domenica Velázquez MD Erythrocyte distribution width (RBC) [Ratio] 13.5 % Normal 11.8-14.4 [facility] Comment on above: Performed By: #### C DP, BMP, DIME, TROPI #### [address] [place] [address] Clinical Quality Assurance Associate: Domenica Velázquez MD Hematocrit (Bld) [Volume fraction] 42.6 % Normal 36.3-47.1 [facility] Comment on above: Performed By: #### C DP, BMP, DIME, TROPI #### [address] [place] [address] Clinical Quality Assurance Associate: Domenica Velázquez MD Hemoglobin (Bld) [Mass/Vol] 14.1 g/dL Normal 11.9-15.1 [facility] Comment on above: Performed By: #### C DP, BMP, DIME, TROPI #### [facility] [address] [place] [address] Clinical Quality Assurance Associate: Domenica Velázquez MD Immature granulocytes/100 WBC (Bld) 0 % Normal 0 [facility] Comment on above: Performed By: #### C DP, BMP, DIME, TROPI #### [facility] [address] [place] [address] Clinical Quality Assurance Associate: Domenica Velázquez MD Lymphocytes (Bld) [#/Vol] 2.42 10*3/uL Normal 1.10-3.70 [facility] Comment on above: Performed By: #### C DP, BMP, DIME, TROPI #### [address] [place] [id number] Clinical Quality Assurance Associate: Domenica Velázquez MD Lymphocytes/100 WBC (Bld) 30 % Normal 24-43 [facility] Comment on above: Performed By: #### C DP, BMP, DIME, TROPI #### [address] [place] [address] Clinical Quality Assurance Associate: Domenica Velázquez MD MCH (RBC) [Entitic mass] 28.8 pg Normal 25.2-33.5 [facility] Comment on above: Performed By: #### C DP, BMP, DIME, TROPI #### [address] [place], [facility]83 Clinical Quality Assurance Associate: Domenica Velázquez MD MCHC (RBC) [Mass/Vol] 33.1 g/dL Normal 28.4-34.8 [facility] Comment on above: Performed By: #### C DP, BMP, DIME, TROPI #### [address] [place], [facility]83 Clinical Quality Assurance Associate: Domenica Velázquez MD MCV (RBC) [Entitic vol] 87.1 fL Normal 82.6-102.9 [facility] Comment on above: Performed By: #### C DP, BMP, DIME, TROPI #### [address] [place], [place] 2052183 Clinical Quality Assurance Associate: Domenica Velázquez MD Monocytes (Bld) [#/Vol] 0.53 10*3/uL Normal 0.10-1.20 [facility] Comment on above: Performed By: #### C DP, BMP, DIME, TROPI #### [address] [place] [address] Clinical Quality Assurance Associate: Domenica Velázquez MD Monocytes/100 WBC (Bld) 7 % Normal 3-12 [facility] Comment on above: Performed By: #### C DP, BMP, DIME, TROPI #### [address] [place], [facility]83 Clinical Quality Assurance Associate: Domenica Velázquez MD Neutrophil (Seg) 62 % Normal 36-65 [facility] Comment on above: Performed By: #### C DP, BMP, DIME, TROPI #### [address] [place], [place] 8227483 Clinical Quality Assurance Associate: Domenica Velázquez MD NRBC Automated 0.0 per 100 WBC Normal 0.0 [facility] Comment on above: Performed By: #### C DP, BMP, DIME, TROPI #### [address] [place], [place] 9154183 Clinical Quality Assurance Associate: Domenica Velázquez MD Platelet mean volume (Bld) [Entitic vol] 10.9 fL Normal 8.1-13.5 [facility] Comment on above: Performed By: #### C DP, BMP, DIME, TROPI #### [address] [place], [place] 6812783 Clinical Quality Assurance Associate: Domenica Velázquez MD Platelets (Bld) [#/Vol] 296 10*3/uL Normal 138-453 [facility] Comment on above: Performed By: #### C DP, BMP, DIME, TROPI #### [facility] [address] [place], [place] [phone] Clinical Quality Assurance Associate: Domenica Velázquez MD RBC (Bld) [#/Vol] 4.89 10*6/uL Normal 3.95-5.11 [facility] Comment on above: Performed By: #### C DP, BMP, DIME, TROPI #### [facility] [address] [place] [address] Clinical Quality Assurance Associate: Domenica Velázquez MD WBC (Bld) [#/Vol] 8.2 10*3/uL Normal 3.5-11.3 [facility] Comment on above: Performed By: #### C DP, BMP, DIME, TROPI #### [facility] [address] [place] [address] Clinical Quality Assurance Associate: Domenica Velázquez MD CT CHEST PULMONARY EMBOLISM [...] Fernando Marcelino MD 10/05/23 Final result Normal [facility] D-Dimer Teston 10-05-2023 D-Dimer Test 0.30 ug/mL FEU Normal 0.00-0.59 [facility] Comment on above: Result Comment: [...] DVT. Performed By: #### C DP, BMP, DIME, TROPI ####[facility] [place] [address] lab Director: Domenica Velázquez MD Liver Profileon 10-05-2023 Albumin [Mass/Vol] 4.4 g/dL Normal 3.5-5.2 [facility] Comment on above: Performed By: #### L IVP ####[facility] [place], [place] 208[address] Lab Director: Domenica Velázquez MD Albumin/Glob Ratio 1.4 Normal 1.0-2.5 [facility] Comment on above: Performed By: #### L IVP ####[address] , [place] 1801283 Lab Director: Domenica Velázquez MD Alkaline Phos 99 U/L Normal 35-104 [facility] Comment on above: Performed By: #### L IVP ####[address] , [place] 2143[address] Lab Director: Domenica Velázquez MD ALT [Catalytic activity/Vol] 13 U/L Normal 5-33 [facility] Comment on above: Performed By: #### L IVP ####[address] , [place] 9779883 Lab Director: Domenica Velázquez MD AST [Catalytic activity/Vol] 16 U/L Normal <32 [facility] Comment on above: Performed By: #### L IVP ####[address] , [place] 8954683 Lab Director: Domenica Velázquez MD Bilirubin [Mass/Vol] 0.2 mg/dL Low 0.3-1.2 [facility] Comment on above: Performed By: #### L IVP ####[address] [place] [address] Lab Director: Domenica Velázquez MD Bilirubin, Indirect Can not be calculated Normal 0.0-1 .0 [facility] Comment on above: Performed By: #### L IVP ####[address] , [place] 8206583 Lab Director: Domenica Velázquez MD Bilirubin.indirect [Mass/Vol] mg/dL Normal <0.3 [facility] Comment on above: Performed By: #### L IVP ####[facility] [place] , [place] 5036383 Lab Director: Domenica Velázquez MD Protein [Mass/Vol] 7.5 g/dL Normal 6.4-8.3 [facility] Comment on above: Performed By: #### L IVP ####[facility] [place] , [place] 7[address]83 Lab Director: Domenica Velázquez MD Troponinon 10-05-2023 Troponin, High Sens <6 Normal 0-14 [facility] Comment on above: Result Comment: High Sensitivity Troponin values cannot be compared with other Troponin methodologies. Performed By: #### T ROPI ####[facility] [place] [address] Lab Director: Domenica Velázquez MD Troponin, High Sens <6 Normal 0-14 [facility] Comment on above: Result Comment: High Sensitivity Troponin values cannot be compared with other Troponin methodologies. Performed By: #### C DP, BMP, DIME, TROPI #### [facility] [address] [place], [place] 2453283 Clinical Quality Assurance Associate: Domenica Velázquez MD XR CHEST PORTABLEon 10-05-19 [...] Deyanira Lock MD 10/05/23 Final result Normal [facility] CT CERVICAL SPINE WO CONTRAS Ton 04-20-2023 [...] Andi Montoya MD 04/20/23 Final result Normal [facility] CT Cervical spine WO contras ton 04-20-2023 Radiology Study observation (narrative) [facility] CT HEAD WO CONTRASTon 2023 [...] Andi Montoya MD 04/20/23 Final result Normal [facility] CT Head WO contraston 2023 Radiology Study observation (narrative) [facility] No Panel Informationon 04-[address] abnormal ity identified in the brain. No acute osseous abnormality identified in the cervical spine. [facility] RIS CONSOLIDATED EXAMINATION: CT OF [...] There is no prevertebral soft tissue swelling. [facility] RIS CONSOLIDATED Andi Montoya MD [...] osseous abnormality identified in the cervical spine. [facility] CuculusHARBORVIEW MEDICAL CENTERCrowdSource [facility] No Panel InformationOrdered By: Andi Montoya on 04-20-2023 [facility] Work Phone: Glucose Glucometer (BldC) [M ass/Vol]on 03-27-2023 Glucose [Mass/Vol] 151 mg/dL High 65-99 [facility] Glucose Poct Glucometerson 0 03-18-2023 Commemt1 Glu2: Cleaned Meter Normal [facility] Comment on above: Result Comment: PERF ORMED BY: [facility] [address] [place] [id number] PATHOLOGIST [employer] SHA VALERA M.D. Performed By: #### G LULS #### Point of Care testing , Glucose [Mass/Vol] 87 mg/dL Normal [facility] Comment on above: Result Comment: [facility] Glucose Reference Range is dependent on time and content of last meal. Glucose of more than 200 mg/dL in a nonstressed, ambulatory subject supports the diagnosis of Diabetes Mellitus. Performed By: #### G LULS #### Point of Care testing , HCG,Urineon 03-18-2023 Beta HCG ( test) Ql (U) Negative Normal [facility] Comment on above: Result Comment: PERF ORMED BY: [place] [address] PATHOLOGIST [employer] SHA VALERA M.D. Performed By: #### U HCG #### [address] CBC AND AUTO DIFFon 03-16-19 ABSOLUTE BASOPHIL 0.0 X10E9/L Normal 0.0-0.2 [facility] Comment on above: Performed By: #### C JAHAIRA BURGESS, 14821-3, TSHR #### [facility] ([id number]) [address] [place] [address] ABSOLUTE NEUTROPHIL 7.7 X10E9/L High 1.5-6.6 [facility] Comment on above: Performed By: #### C JAHAIRA BURGESS, 78475-2, TSHR #### [facility] ([id number]) [address], [address] [place] [address] Basophils/100 WBC (Bld) 0.3 % Normal [facility] Comment on above: Performed By: #### C JAHAIRA BURGESS, 25808-1, TSHR #### [facility] ([id number]) [address] [place] [address] Eosinophils (Bld) [#/Vol] 0.1 10*3/uL Normal 0.0-0.4 [facility] Comment on above: Performed By: #### Terrell BURGESS CMP, 33269-5, TSHR #### [facility] ([id number]) [address] [place] [address] Eosinophils/100 WBC (Bld) 1.1 % Normal [facility] Comment on above: Performed By: #### Terrell BURGESS CMP, 51029-4, TSHR #### [facility] ([id number]) [address] [address] [place] [address] Erythrocyte distribution width (RBC) [Ratio] 14.6 % Normal 11.5-15.0 [facility] Comment on above: Performed By: #### Terrell BURGESS CMP, 42581-2, TSHR #### [facility] ([id number]) [address] [facility] [address] [place] [address] Hematocrit (Bld) [Volume fraction] 45.7 % Normal 35-47 [facility] Comment on above: Performed By: #### Terrell BURGESS CMP, 44237-2, TSHR #### [facility] ([id number]) [address] [place] [address] Hemoglobin (Bld) [Mass/Vol] 15.0 g/dL Normal 11.7-15.5 [facility] Comment on above: Performed By: #### Terrell BURGESS CMP, 86312-9, TSHR #### [facility] LAB ([id number]) [address], [facility] [address] [place] [address] Lymphocytes (Bld) [#/Vol] 2.4 10*3/uL Normal 1.0-3.5 [facility] Comment on above: Performed By: #### Terrell BURGESS CMP, 09534-6, TSHR #### [facility] ([id number]) [address] [place] [address] Lymphocytes/100 WBC (Bld) 22.1 % Normal [facility] Comment on above: Performed By: #### Terrell BURGESS CMP, 08752-7, TSHR #### [facility] ([id number]) [address] [place] [address] MCH (RBC) [Entitic mass] 29.0 pg Normal 27-34 [facility] Comment on above: Performed By: #### C JAHAIRA BURGESS, 48358-9, TSHR #### [facility] ([id number]) [address] [place] [address] MCHC (RBC) [Mass/Vol] 32.8 g/dL Normal 32-36 [facility] Comment on above: Performed By: #### Terrell BURGESS CMP, 79752-7, TSHR #### [facility] ([id number]) [address] [place] [address] MCV (RBC) [Entitic vol] 88 fL Normal 80-100 [facility] Comment on above: Performed By: #### Terrell BURGESS CMP, 06214-0, TSHR #### [facility] ([id number]) [address] [place] [address] Monocytes (Bld) [#/Vol] 0.6 10*3/uL Normal 0-0.9 [facility] Comment on above: Performed By: #### Terrell BURGESS CMP, 49490-5, TSHR #### [facility] ([id number]) [address] [place] [address] Monocytes/100 WBC (Bld) 5.7 % Normal [facility] Comment on above: Performed By: #### Terrell BURGESS CMP, 77449-3, TSHR #### [facility] ([id number]) [address] [place] [address] Neutrophils/100 WBC (Bld) 70.8 % Normal [facility] Comment on above: Performed By: #### C BCA, CMP, 57647-1, TSHR #### [facility] ([id number]) [address] [address] [place] [address] Platelet mean volume (Bld) [Entitic vol] 9.7 fL Normal 7-12 [facility] Comment on above: Performed By: #### C BCA, CMP, 26698-9, TSHR #### [facility] ([id number]) [address] [address] [place] [address] Platelets (Bld) [#/Vol] 303 10*3/uL Normal 150-450 [facility] Comment on above: Performed By: #### C BCA, CMP, 30252-3, TSHR #### [facility] ([id number]) [address] [address] [place] [address] RBC COUNT 5.17 X10E12/L Normal 3.80-5.20 [facility] Comment on above: Performed By: #### C BCA, CMP, 58014-6, TSHR #### [facility] ([id number]) [address] [address] [place] [address] WBC (Bld) [#/Vol] 10.9 10*3/uL Normal 4.0-11.0 [facility] Comment on above: Performed By: #### C BCA, CMP, 83745-4, TSHR #### [facility] ([id number]) [address], [address] [place] [address] COMPREHENSIVE METABOLIC PANE Dirk 03-16-2023 Albumin [Mass/Vol] 4.7 g/dL Normal 3.2-5.3 [facility] Comment on above: Performed By: #### C BCA, CMP, 18591-7, TSHR #### [facility] ([id number]) [address] [address] [place] [address] ALP [Catalytic activity/Vol] 74 U/L Normal 39-130 [facility] Comment on above: Performed By: #### C ADITYA CMP, 01242-7, TSHR #### [facility] ([id number]) [address] [place] [address] ALT [Catalytic activity/Vol] 22 U/L Normal 0-31 [facility] Comment on above: Performed By: #### C ADITYA CMP, 70324-4, TSHR #### [facility] ([id number]) [address] [place] [address] Anion gap [Moles/Vol] 12 mmol/L Normal 5-15 [facility] Comment on above: Performed By: #### C ADITYA, CMP, 70997-1, TSHR #### [facility] ([id number]) [address] [place] [address] AST [Catalytic activity/Vol] 20 U/L Normal 0-41 [facility] Comment on above: Performed By: #### C JAHAIRA BURGESS, 26760-5, TSHR #### [facility] ([id number]) [address] [place] [address] Bilirubin [Mass/Vol] 0.5 mg/dL Normal 0.3-1.2 [facility] Comment on above: Performed By: #### C ADITYA CMP, 94994-9, TSHR #### [facility] ([id number]) [address] [place] [address] Calcium [Mass/Vol] 9.9 mg/dL Normal 8.5-10.5 [facility] Comment on above: Performed By: #### C BCA, CMP, 73960-0, TSHR #### [facility] ([id number]) [address] [place] [address] Chloride [Moles/Vol] 105 mmol/L Normal 98-109 [facility] Comment on above: Performed By: #### C JAHAIRA BURGESS, 46313-1, TSHR #### [facility] ([id number]) [address] [place] [address] CO2 [Moles/Vol] 25 mmol/L Normal 22-32 [facility] Comment on above: Performed By: #### C JAHAIRA BURGESS, 53699-9, TSHR #### [facility] ([id number]) [address] [place] [address] Creatinine [Mass/Vol] 0.74 mg/dL Normal 0.40-1.00 [facility] Comment on above: Result Comment: METH OD TRACEABLE TO IDMS STANDARD Performed By: #### C JAHAIRA BURGESS, 42124-7, TSHR #### [facility] ([id number]) [address] [place] [address] eGFR (CKD-EPI) NON-RACE DEPENDENT >90 Normal >59 [facility] Comment on above: Result Comment: Reported eGFR is based on the CKD-EPI 2020 equation that does not use a race coefficient. Performed By: #### C JAHAIRA BURGESS, 58149-1, TSHR #### [facility] ([id number]) [address] [place] [address] Glucose [Mass/Vol] 143 mg/dL High 65-99 [facility] Comment on above: Performed By: #### C JAHAIRA BURGESS, 38305-2, TSHR #### [facility] ([id number]) [address] [address] [place] [address] Potassium [Moles/Vol] 3.8 mmol/L Normal 3.5-5.0 [facility] Comment on above: Performed By: #### C JAHAIRA BURGESS, 67053-5, TSHR #### [facility] ([id number]) [address] [place] [address] Protein [Mass/Vol] 7.8 g/dL Normal 6.0-8.0 [facility] Comment on above: Performed By: #### Terrell BURGESS CMP, 08068-9, TSHR #### [facility] ([id number]) [address] [place] [address] Sodium [Moles/Vol] 142 mmol/L Normal 134-146 [facility] Comment on above: Performed By: #### Terrell BURGESS CMP, 70454-5, TSHR #### [facility] ([id number]) [address], [facility] [address] [place] [address] Urea nitrogen [Mass/Vol] 17 mg/dL Normal 5-23 [facility] Comment on above: Performed By: #### Terrell BURGESS CMP, 03911-6, TSHR #### [facility] ([id number]) [address] [place] [address] HGB A1C (GLYCO-HGB)on 2023 Glucose [Mass/Vol] 117 mg/dL Normal [facility] Comment on above: Performed By: #### Terrell BURGESS CMP, 20934-9, TSHR #### [facility] ([id number]) [address] [place] [address] HbA1c (Bld) [Mass fraction] 5.7 % High 4.4-5.6 [facility] Comment on above: Result Comment: NOTE ADA Guidelines Result HgbA1c Normal : less than 5.7 % Prediabetes : 5.7 % to 6.4 % Diabetes : > 6.4 % Use with caution in patients with abnormal hemoglobin variants as the half-life of red blood cells and in vivo glycation rates are affected. Performed By: #### Terrell BURGESS CMP, 29805-5, TSHR #### [facility] ([id number]) [address] [place] [address] Lipid 1996 panelon 4 Cholesterol [Mass/Vol] 132 mg/dL Low 150-200 [facility] Comment on above: Performed By: #### Terrell BURGESS CMP, 53210-0, TSHR #### [facility] ([id number]) [address] [place] [address] Cholesterol in HDL [Mass/Vol] 58 mg/dL Normal >39 [facility] Comment on above: Result Comment: HDL <40 mg/dL - High Risk HDL > or = 40mg/dL- Desirable HDL >60 mg/dL - Negative Risk Performed By: #### Terrell BURGESS CMP, 15659-3, TSHR #### [facility] ([id number]) [address] [place] [address] Cholesterol in LDL [Mass/Vol] 51 mg/dL Normal <130 [facility] Comment on above: Result Comment: LDL <100 mg/dL - Desirable LDL >160 mg/dL - High Risk Performed By: #### Terrell BURGESS CMP, 15165-1, TSHR #### [facility] ([id number]) [address] [place] [address] Cholesterol in VLDL [Mass/Vol] 23 mg/dL Normal 0-30 [facility] Comment on above: Performed By: #### Terrell BURGESS CMP, 20566-9, TSHR #### [facility] ([id number]) [address] [place] [address] CHOLESTEROL:HDL 2.3 Normal 1.0-5.0 [facility] Comment on above: Performed By: #### Terrell BURGESS, CMP, 62049-5, TSHR #### [facility] ([id number]) [address] [place] [address] Triglyceride [Mass/Vol] 114 mg/dL Normal 27-150 [facility] Comment on above: Performed By: #### C BCA, CMP, 63950-9, TSHR #### [facility] ([id number]) [address] [place] [address] 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 MAMM SCREENING BILATERAL W CAD MAMM [...] 3:25 PM 0A a ADDITIONAL I Normal [facility] TSH WITH REFLEXon 03-16-2023 TSH 0.55 uIU/mL Normal 0.49-4.67 [facility] Comment on above: Performed By: #### C BCA, CMP, 00583-7, TSHR #### [facility] ([id number]) [address] [place] [address] PT - Assessmentson 3 PT - Assessments [id number]#1.00CD:12 [address] [facility] [address] - Assessmentson 3 ST - Assessments [id number]#1.00CD:127 Normal [facility] Consenton 09-25-2022 Consent [id number]#1.00CD:127 [facility] Outside Recordson 2022 Outside Records [id number]#1.00CD:127 [facility] ST - Orderson 2022 ST - Orders [id number]#1.00CD:127 [facility] ST - Orders [id number]#1.00CD:127 Normal [facility] ST - Otheron 2022 ST - Other [id number]#1.00CD:127 [facility] PAP ACOG PANEL 2: 30 to 65on 05-27-2022 . . Normal [facility] Comment on above: Result Comment: Perf ormed at: WB Performed By: #### 4 [id number] #### [facility] [address] [place] [address] Dr. Do Aguilar Age Gdln ACOG Testing 30-65 [facility] Comment on above: Performed By: #### 4 [id number] #### [facility] [address] [address] [address] Do Aguilar DIAGNOSIS: Comment Normal [facility] Comment on above: Result Comment: NEGA TIVE FOR INTRAEPITHELIAL LESION OR MALIGNANCY. Performed at: WB Performed By: #### 4 [id number] #### [facility] [address] [address] [address] Do Aguilar HPV Aptima Negative Normal Negative [facility] Comment on above: Result Comment: This nucleic acid amplification test detects fourteen high-risk HPV types (16,18,31,33,35,39,45,51,52,56,58,59,66,68) without differentiation. Performed at: =G Performed By: #### 4 [id number] #### [facility] [address] [place] [address] Dr. Do Aguilar HPV Genotype Reflex Comment Normal [facility] Comment on above: Result Comment: Crit eria not met, HPV Genotype not performed. Performed at: WB Performed By: #### 4 [id number] #### [facility] [address] [place] [address] Dr. Do Aguilar Methodology: Comment Normal [facility] Comment on above: Result Comment: This liquid based ThinPrep(R) pap test was screened with the use of an image guided system. Performed at: WB Performed By: #### 4 [id number] #### [facility] [address] [place] [address] Dr. Do Aguilar Note: Comment Normal [facility] Comment on above: Result Comment: The Pap smear is a screening test designed to aid in the detection of premalignant and malignant conditions of the uterine cervix. It is not a diagnostic procedure and should not be used as the sole means of detecting cervical cancer. Both false-positive and false-negative reports do occur. . Performed at: WB Performed By: #### 4 [id number] #### [facility] [address] [place] [address] Dr. Do Aguilar Performed by: Comment Normal [facility] Comment on above: Result Comment: Melissa Ramachandran, Jeeper Operator (ASCP) Performed at: WB Performed By: #### 4 [id number] #### [facility] [address] [place] [address] Dr. Do Aguilar Specimen adequacy: Comment Normal [facility] Comment on above: Result Comment: Sati sfactory for evaluation. Endocervical and/or squamous metaplastic cells (endocervical component) are present. Performed at: WB Performed By: #### 4 [id number] #### [facility] [address] [place] [address] Dr. Do Aguilar HEPATITIS C AB CASCADE TO QU ANT PCR GENOon 02-18-2022 HCV AB <0.1 Normal 0.0-0.9 [facility] Comment on above: Performed By: #### H EPCASC #### [facility] [address] [place] [address] Dr. Do Aguilar Interpretation: Comment Normal [facility] Comment on above: Result Comment: Nega tive Not infected with HCV, unless recent infection is suspected or other evidence exists to indicate HCV infection. Performed By: #### H EPCASC #### [facility] [address] [place] [address] Dr. Do Aguilar LIVER PROFILEon 02-17-2022 Albumin [Mass/Vol] 3.6 g/dL Normal 3.4-5.0 [facility] Comment on above: Performed By: #### L IVER #### [facility] [address] [place] [address] Dr. Do Aguilar Albumin/Globulin [Mass ratio] 0.9 {ratio} Normal [facility] Comment on above: Performed By: #### L IVER #### [facility] [address] [place] [address] Dr. Do Aguilar ALP [Catalytic activity/Vol] 79 U/L Normal 46-116 [facility] Comment on above: Performed By: #### L IVER #### [facility] [address] [place] [address] Dr. Do Aguilar ALT [Catalytic activity/Vol] 51 U/L Normal 14-59 [facility] Comment on above: Performed By: #### L IVER #### [facility] [address] [place] [address] Dr. Do Aguilar AST [Catalytic activity/Vol] 33 U/L Normal 15-37 [facility] Comment on above: Performed By: #### L IVER #### [facility] [address] [place] [address] Dr. Do Aguilar BILI, CONJUGATED 0.1 mg/dL Normal 0.0-0.2 [facility] Comment on above: Performed By: #### L IVER #### [facility] [address] [place] [address] Dr. Do Aguilar Bilirubin [Mass/Vol] 0.3 mg/dL Normal 0.2-1.0 [facility] Comment on above: Performed By: #### L IVER #### [facility] [address] [place] [address] Dr. Do Aguilar Globulin (S) [Mass/Vol] 4.2 g/dL Normal [facility] Comment on above: Performed By: #### L IVER #### [facility] [address] [place] [address] Dr. Do Aguilar Protein [Mass/Vol] 7.8 g/dL Normal 6.4-8.2 [facility] Comment on above: Performed By: #### L IVER #### [facility] [address] [place] [address] Dr. Do Aguilar TSHon 02-17-2022 TSH 0.457 uIU/mL Normal 0.358-3.74 0 [facility] Comment on above: Performed By: #### T SH #### [facility] [address] [place] [address] Dr. Do Aguilar VITAMIN B12on 02-17-2022 Cobalamin (Vitamin B12) [Mass/Vol] 1864.0 pg/mL Critically high 193.0-986. 0 [facility] Comment on above: Performed By: #### V ITB12 #### [facility] [address] [place] [address] Dr. Do Aguilar History and Physicalon 12-04 History and Physical [id number]#1.00[facility] - Surgeon/P godwin 12-04-2016 Operative Report - Surgeon/Physician [id number]#1.00[facility] Coding Summaryon 11-26-2016 Coding Summary CODING DATE: 017 [facility] STATUS: Home PAYOR: Medicaid HMO ADMIT DX: REASON FOR VISIT DX: R10.13 Epigastric pain R10.11 Right upper quadrant pain FINAL DX: PRINCIPAL: K29.70 Gastritis, unspecified, without bleeding SECONDARY: PROCEDURES DOCTOR NAME DATE 99464 EsophagogastroduodenTed mena Richard MD 11/21/2016 flexible, transoral; with biopsy, single or multiple NOTE: The code number assigned matches the documented diagnosis and / or procedure in the patient's chart. However, the narrative phrase printed from the coding software may appear abbreviated, or result in slightly different terminology. Coded By: Rosalba Laureano Date Saved: 11/26/2016 01:09 pm [facility] Consent Formson 11-24-2016 Consent Forms [id number]#1.00[facility] Intraoperative [facility]on 2016 Intraoperative Note [id number]#1.00[facility] Intraoperative Note [id number]#1.00[facility] Operative Report - Surgeon/P godwin 11-24-2016 Operative Report - Surgeon/Physician DATE OF PROCEDURE: 11/21/2016PREOPERATIVE DIAGNOSIS: Epigastric pain/right upper quadrant pain.POSTOPERATIVE DIAGNOSIS: Moderate gastritis.PROCEDURE PERFORMED: EGD with biopsy x1 from the antrum of the stomach forH. pylori testing.SURGEON: Juan Ramon Jean M.D.ANESTHESIA: Conscious sedation with Versed 6 mg IV, Demerol 50 mg IV.FINDINGS: As above.DISPOSITION: To the [facility] area in fair condition.INDICATIONS: The patient is [...] in two weeks.Juan Ramon Jean M.D.JOB #: [id number]: 11/21/2016T: 11/21/2016[Electronically Signed on: 12/03/2016 07:09 EDT] Juan Ramon Jean MD Generated Domain User for [id number][Verified on: 12/03/2016 07:09 EDT] Juan Ramon Jean MD[Transcribed on: 11/21/2016 11:37 EDT]U [facility] Telemetry Stripson 7 Telemetry Strips [id number]#1.00OTGTIFF [facility] Telemetry Strips [id number]#1.00OTGTIFF [facility] H. Pylori Gastricon 11-22-19 17 H. Pylori Rico Int Ctrl Pass [facility] Comment on above: Order Comment: H. (A NTRUM) Result Comment: Pass Performed By: #### 2 [id number] ####[facility] (DEFAULT)[address] [place] [address] H. Pylori Gastric Negative Normal Negative [facility] Comment on above: Order Comment: H. (A NTRUM) Result Comment: Nega tive Performed By: #### 2 [id number] ####[facility] (DEFAULT)[address] [place] [address] Inpatient Clinical Summaryon 11-21-2016 Inpatient Clinical Summary [facility] SURGERYClinical Discharge SummaryPERSON INFORMATIONName KARMA SR Age 36 Years 80Sex FEMALE Language Mosotho PCP HAZEL, DAVIDMarital Status Med Service Ambulatory SurgeryMRN [id number] Acct# Arrival 11/21/16 07:22:21Visit Reason EGD - EPIGASTRIC ABDOMINAL PAIN Acuity LOS 013 23:19Address:[address] [facility] [address]Unvhwiw:PROVIDER INFORMATIONVITALS INFORMATIONVital Sign Triage LatestTemp OralTemp Temporal 36.4 DegC 36.4 DegCTemp IntravascularTemp AxillaryTemp Pbraqf03 Sat 100 % 97 %Respiratory Rate 16 [...] llow up:With: Address: When:Juan Ramon Jean [address] [place] [address] Business (1) Within 2 to 4 weeksComments:Call for follow up appointmentWith: Address: When:DOMENICA OLIVA [address] [place] [address] [phone] Business (1)DIAGNOSISAcute gastritisComment:PHYS DOC NOTES Normal [facility] Inpatient Patient Summaryon 11-21-2016 Inpatient Patient Summary [address] [place] [id number] patient Discharge InstructionsName: BRENDON SR: 80 Address: [address] [place] [address] Care Provider:Name: DOMENICA OLIVAPhone: Discharge Diagnosis: Acute [...] decisions or sign any legal documentsMer[facility] Health [facility] would like to thank you for allowing us to assist you with your healthcare needs. The following includes patient education materials and information regarding your injury/illness.KARMA SR has been given the following list of follow-up instructions, prescriptions, and patient education materials:Follow-up InstructionsWith: Address: When:Juan Ramon Jean [address] [phone] Business (1) Within 2 to 4 weeksComments:Call for follow up appointmentWith: Address: When:DOMENICA OLIVA [address] [place] [address] Business (1)MedicationsDuring the course of your visit, [...] for Disease Control and Prevention October 2013 [facility]o Intraoperative Rec ordon 11-21-2016 [facility] Intraoperative Record [facility] Intra-Op Record Summary Primary Physician: Juan Ramon Jean MD Finalized Date/Time: 11/21/16 08:37:38 Pt. Name: KARMA SR/Sex: 1980 FEMALE Med Rec #: [id number] Physician: Juan Ramon Jean MD Financial #: [id number] Pt. 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 Name: KARMA SR/Sex: 1980 FEMALE Med Rec #: [id number] Physician: Juan Ramon Jean MD Financial #: [id number] Pt. Type: D Room/Bed: / Admit/Disch: 11/21/16 [...] Signed By: Cammy Barroso RN 11/21/16 10:02 [facility]o Preoperative Recor don 11-21-2016 [facility] Preoperative Record [facility] Pre-Op Record Summary Primary Physician: Juan Ramon Jean MD Finalized Date/Time: 11/21/16 08:27:58 Pt. Name: KARMA SR/Sex: 1980 FEMALE Med Rec #: [id number] Physician: Juan Ramon Jean MD Financial #: [id number] Pt. Type: D Room/Bed: / Admit/Disch: 11/21/16 [...] Cammy Barroso RN Document Signatures Signed By: aCmmy Barroso RN 11/21/16 08:27 [facility] Test Urine 1on U Preg Negative [facility] Comment on above: Result Comment: Nega tive Performed By: #### 3 [id number] ####[facility] (DEFAULT)[address] [place] [address] U Preg Internal Control Pass [facility] Health Comment on above: Result Comment: Pass Performed By: #### 3 [id number] ####[facility] (DEFAULT)[address] [place] [address] Vital Signs Date Time Vital Sign Value Performing Clinician Facility 01-13-2024 17:30-0500 Diastolic blood pressure 71 mm[Hg] Lisette Junior DO Work Phone: [facility] 01-13-2024 17:30-0500 Heart rate 95 /min Lisette Junior DO Work Phone: [facility] 01-13-2024 17:30-0500 SaO2% (BldA) [Mass fraction] 99 % Lisette Junior DO Work Phone: [facility] 01-13-2024 17:30-0500 Systolic blood pressure 131 mm[Hg] Lisette Junior DO Work Phone: [facility] 01-13-2024 15:30-0500 Respiratory rate 16 /min [facility] 01-13-2024 14:24-0500 Body height 160 cm Lisette Uribebal DO Work Phone: [facility] [employer] 01-13-2024 14:24-0500 Body mass index (BMI) [Ratio] 37.55 kg/m2 [facility] Junior DO [facility] 01-13-2024 14:24-0500 Body temperature 98.1 [degF] Lisette Uribebal DO Work Phone: [facility] 01-13-2024 14:24-0500 Body weight 96.16 kg Lisette Junior DO Work Phone: [facility] [employer] 10-08-2023 09:17-0400 Body height 160 cm Dwayne Khoury MD Work Phone: [facility] 10-08-2023 09:17-0400 Body mass index (BMI) [Ratio] 36.36 kg/m2 Dwayne Khoury MD Work Phone: [facility] 10-08-2023 09:17-0400 Body weight 93.1 kg Dwayne Khoury MD Work Phone: [facility] 10-08-2023 09:17-0400 Diastolic blood pressure 86 mm[Hg] Dwayne Khoury MD Work Phone: [facility] 10-08-2023 09:17-0400 Heart rate 102 /min Dwayne Khoury MD Work Phone: [facility] 10-08-2023 09:17-0400 Respiratory rate 16 /min Dwayne Khoury MD Work Phone: [facility] 10-08-2023 09:17-0400 Systolic blood pressure 145 mm[Hg] Dwayne Khoury MD Work Phone: [facility] 06-02-2023 14:32-0400 Body mass index (BMI) [Ratio] 36.67 kg/m2 Deepika Robledo MD Work Phone: [facility] 06-02-2023 14:32-0400 Body weight 93.89 kg Deepika Robledo MD Work Phone: [facility] 06-02-2023 14:32-0400 Diastolic blood pressure 102 mm[Hg] Deepika Robledo MD Work Phone: [facility] 06-02-2023 14:32-0400 Heart rate 83 /min Deepika Robledo MD Work Phone: [facility] 06-02-2023 14:32-0400 Systolic blood pressure 136 mm[Hg] Deepika Robledo MD Work Phone: [facility] 05-21-2023 11:22-0400 Body height 160.02 cm [facility] 05-21-2023 11:22-0400 Body mass index (BMI) [Ratio] 36.5 kg/m2 [facility] 05-21-2023 11:22-0400 Body weight 93.44 kg [facility] 05-21-2023 10:39-0400 Body height 160.02 cm [facility] 05-21-2023 10:39-0400 Body mass index (BMI) [Ratio] 36.5 kg/m2 [facility] 05-21-2023 10:39-0400 Body weight 93.49 kg [facility] 05-21-2023 10:39-0400 Diastolic blood pressure 77 mm[Hg] [facility] 05-21-2023 10:39-0400 Heart rate 105 /min [facility] 05-21-2023 10:39-0400 Respiratory rate 18 /min [facility] 05-21-2023 10:39-0400 SaO2% (BldA) [Mass fraction] 95 % [facility] 05-21-2023 10:39-0400 Systolic blood pressure 114 mm[Hg] [facility] 04-28-2023 11:21-0500 Body height 160 cm Gaurav Sellers PA Work Phone: [facility] 04-28-2023 11:21-0500 Body mass index (BMI) [Ratio] 36.14 kg/m2 Gaurav Sellers PA Work Phone: [facility] 04-28-2023 11:21-0500 Body weight 92.53 kg Gaurav Sellers PA Work Phone: [facility] 04-28-2023 11:21-0500 Diastolic blood pressure 82 mm[Hg] Gaurav Sellers PA Work Phone: [facility] 04-28-2023 11:21-0500 Heart rate 87 /min Gaurav Sellers PA Work Phone: [facility] [employer] 04-28-2023 11:21-0500 Respiratory rate 16 /min [facility]ellers PA [facility] 04-28-2023 11:21-0500 SaO2% (BldA) [Mass fraction] 97 % Gaurav Sellers PA Work Phone: [facility] 04-28-2023 11:21-0500 Systolic blood pressure 122 mm[Hg] Gaurav Sellers PA Work Phone: [facility] 04-20-2023 12:41-0500 Body mass index (BMI) [Ratio] 36.49 kg/m2 Shawna Rumschlag DO Work Phone: [employer] 04-20-2023 12:41-0500 Body weight 93.44 kg Shawna Rumschlag DO Work Phone: [facility] [employer] 04-20-2023 12:41-0500 Diastolic blood pressure 76 mm[Hg] Shawna Rumschlag DO Work Phone: [employer] 04-20-2023 12:41-0500 Heart rate 83 /min Shawna Rumschlag DO Work Phone: [facility] [employer] 04-20-2023 12:41-0500 Respiratory rate 16 /min Shawna Rumschlag DO Work Phone: [facility] [employer] 04-20-2023 12:41-0500 SaO2% (BldA) [Mass fraction] 98 % Shawna Rumschlag DO Work Phone: [facility] [employer] 04-20-2023 12:41-0500 Systolic blood pressure 129 mm[Hg] Shawna Rumschlag DO Work Phone: [facility] [employer] 04-20-2023 12:39-0500 Body temperature 97.3 [degF] Shawna Rumschlag DO Work Phone: [facility] [employer] 03-18-2023 11:30-0500 Diastolic blood pressure 84 mm[Hg] MD Yo Blank Work Phone: [facility] 03-18-2023 11:30-0500 Heart rate 95 /min MD Yo Blank Work Phone: [facility] 03-18-2023 11:30-0500 Respiratory rate 16 /min MD Yo Blank Work Phone: [facility] 03-18-2023 11:30-0500 SaO2% (BldA) [Mass fraction] 99 % MD Yo Blank Work Phone: [facility] 03-18-2023 11:30-0500 Systolic blood pressure 123 mm[Hg] MD Yo Blank Work Phone: [facility] 03-05-2023 09:15-0500 Body height 160.02 cm Gayathri Adams Other [employer] Other 03-05-2023 09:15-0500 Body mass index (BMI) [Ratio] 37.57 kg/m2 Gayathri Scally Other [employer] Other 03-05-2023 09:15-0500 Body weight 96.21 kg Gayathri Scally Other [employer] Other 03-05-2023 09:15-0500 Diastolic blood pressure 89 mm[Hg] Gayathri Scally Other [employer] Other 03-05-2023 09:15-0500 Respiratory rate 18 /min Gayathri Scally Other [employer] Other 03-05-2023 09:15-0500 SaO2% (BldA) [Mass fraction] 96 % Gayathri Scally Other [employer] Other 03-05-2023 09:15-0500 Systolic blood pressure 122 mm[Hg] Gayathri Scally Other [employer] Other 03-02-2023 19:24-0500 Body height 160 cm Sil Sullivan DO Work Phone: [employer] 03-02-2023 19:24-0500 Body mass index (BMI) [Ratio] 36.31 kg/m2 Sil Sullivan DO Work Phone: [employer] 03-02-2023 19:24-0500 Body temperature 98.29 [degF] Sil Sullivan DO Work Phone: [employer] 03-02-2023 19:24-0500 Body weight 92.99 kg Sil Sullivan DO Work Phone: [employer] 03-02-2023 19:24-0500 Diastolic blood pressure 98 mm[Hg] Sil Sullivan DO Work Phone: [employer] 03-02-2023 19:24-0500 Heart rate 82 /min Sil Sullivan DO Work Phone: [employer] 03-02-2023 19:24-0500 Respiratory rate 18 /min Sil Sullivan DO Work Phone: [employer] 03-02-2023 19:24-0500 SaO2% (BldA) [Mass fraction] 98 % Sil Sullivan DO Work Phone: [employer] 03-02-2023 19:24-0500 Systolic blood pressure 139 mm[Hg] Sil Sullivan DO Work Phone: [employer] 02-05-2023 09:20-0500 Body height 160.02 cm Jan Garg Other [employer] Other 02-05-2023 09:20-0500 Body mass index (BMI) [Ratio] 36.66 kg/m2 Jan Garg Other [employer] Other 02-05-2023 09:20-0500 Body weight 93.9 kg Jan Garg Other [employer] Other 01-15-2023 09:45-0500 Body height 160.02 cm Gayathri Scally Other [employer] Other 01-15-2023 09:45-0500 Body mass index (BMI) [Ratio] 36.68 kg/m2 Gayathri Scally Other [employer] Other 01-15-2023 09:45-0500 Body weight 93.94 kg Gayathri Scally Other [employer] Other 01-15-2023 09:45-0500 Diastolic blood pressure 83 mm[Hg] Gayathri Scally Other [employer] Other 01-15-2023 09:45-0500 Respiratory rate 18 /min Gayathri Adams Other [employer] Other 01-15-2023 09:45-0500 SaO2% (BldA) [Mass fraction] 99 % Gayathri Adams Other [employer] Other 01-15-2023 09:45-0500 Systolic blood pressure 119 mm[Hg] Gayathri Barahonaly Other [employer] Other 01-07-2023 10:00-0500 Body height 160.02 cm Jan Garg Other [employer] Other 01-07-2023 10:00-0500 Body mass index (BMI) [Ratio] 36.13 kg/m2 Jan Garg Other [employer] Other 01-07-2023 10:00-0500 Body weight 92.53 kg Jan Covingtonner Other [employer] Other 01-07-2023 10:00-0500 Diastolic blood pressure 74 mm[Hg] Jan Scovanner Other [employer] Other 01-07-2023 10:00-0500 Systolic blood pressure 118 mm[Hg] Jan Scovanner Other [employer] Other 08-28-2022 09:00-0400 Body height 160.02 cm Tamar Sosa Other [employer] Other 08-28-2022 09:00-0400 Body mass index (BMI) [Ratio] 35.8 kg/m2 Tamar Fitt Other [employer] Other 08-28-2022 09:00-0400 Body weight 91.67 kg Tamar Fitt Other [employer] Other 07-29-2022 10:15-0400 Body height 160.02 cm Gayathri Scally Other [employer] Other 07-29-2022 10:15-0400 Body mass index (BMI) [Ratio] 35.18 kg/m2 Gayathri Scally Other [employer] Other 07-29-2022 10:15-0400 Body weight 90.08 kg Gayathri Scally Other [employer] Other 07-29-2022 10:15-0400 Diastolic blood pressure 84 mm[Hg] Gayathri Scally Other [employer] Other 07-29-2022 10:15-0400 Respiratory rate 18 /min Gayathri Scally Other [employer] Other 07-29-2022 10:15-0400 SaO2% (BldA) [Mass fraction] 99 % Gayathri Scally Other [employer] Other 07-29-2022 10:15-0400 Systolic blood pressure 127 mm[Hg] Gayathri Scally Other [employer] Other 05-20-2022 11:15-0400 Body height 160.02 cm Gayathri Scally Other [employer] Other 05-20-2022 11:15-0400 Body mass index (BMI) [Ratio] 34.52 kg/m2 Gayathri Scally Other [employer] Other 05-20-2022 11:15-0400 Body weight 88.41 kg Gayathri Scally Other [employer] Other 05-20-2022 11:15-0400 Diastolic blood pressure 82 mm[Hg] Gayathri Scally Other [employer] Other 05-20-2022 11:15-0400 Respiratory rate 18 /min Gayathri Scally Other [employer] Other 05-20-2022 11:15-0400 SaO2% (BldA) [Mass fraction] 97 % Gayathri Scally Other [employer] Other 05-20-2022 11:15-0400 Systolic blood pressure 121 mm[Hg] Gayathri Scally Other [employer] Other 04-08-2022 11:15-0500 Body height 160.02 cm Gayathri Scally Other [employer] Other 04-08-2022 11:15-0500 Body mass index (BMI) [Ratio] 34.49 kg/m2 Gayathri Scally Other [employer] Other 04-08-2022 11:15-0500 Body weight 88.32 kg Gayathri Scally Other [employer] Other 04-08-2022 11:15-0500 Diastolic blood pressure 77 mm[Hg] Gayathri Scally Other [employer] Other 04-08-2022 11:15-0500 Respiratory rate 18 /min Gayathri Scally Other [employer] Other 04-08-2022 11:15-0500 SaO2% (BldA) [Mass fraction] 98 % Gayathri Scally Other [employer] Other 04-08-2022 11:15-0500 Systolic blood pressure 110 mm[Hg] Gayathri Scally Other [employer] Other 04-08-2022 10:15-0500 Body height 160.02 cm Tamar Fitt Other [employer] Other 04-08-2022 10:15-0500 Body mass index (BMI) [Ratio] 34.49 kg/m2 Tamar Fitt Other [employer] Other 04-08-2022 10:15-0500 Body weight 88.32 kg Tamar Fitt Other [employer] Other 02-26-2022 10:00-0500 Body height 160.02 cm Tamar Fitt Other [employer] Other 02-25-2022 11:45-0500 Body height 160.02 cm Gayathri Scally Other [employer] Other 02-25-2022 11:45-0500 Body mass index (BMI) [Ratio] 36.63 kg/m2 Gayathri Scally Other [employer] Other 02-25-2022 11:45-0500 Body weight 93.8 kg Gayathri Scally Other [employer] Other 02-25-2022 11:45-0500 Diastolic blood pressure 78 mm[Hg] Gayathri Scally Other [employer] Other 02-25-2022 11:45-0500 Respiratory rate 18 /min Gayathri Scally Other [employer] Other 02-25-2022 11:45-0500 SaO2% (BldA) [Mass fraction] 97 % Gayathri Scally Other [employer] Other 02-25-2022 11:45-0500 Systolic blood pressure 109 mm[Hg] Gayathri Scally Other [employer] Other 01-14-2022 11:45-0500 Body height 160.02 cm Gayathri Scally Other [employer] Other 01-14-2022 11:45-0500 Body mass index (BMI) [Ratio] 39.37 kg/m2 Gayathri Scally Other [employer] Other 01-14-2022 11:45-0500 Body weight 100.84 kg Gayathri Scally Other [employer] Other 01-14-2022 11:45-0500 Diastolic blood pressure 88 mm[Hg] Gayathri Scally Other [employer] Other 01-14-2022 11:45-0500 Respiratory rate 18 /min Gayathri Scally Other [employer] Other 01-14-2022 11:45-0500 SaO2% (BldA) [Mass fraction] 97 % Gayathri Scally Other [employer] Other 01-14-2022 11:45-0500 Systolic blood pressure 124 mm[Hg] Gayathri Scally Other [employer] Other 12-04-2021 12:00-0400 Body height 160.02 cm Gayathri Scally Other [employer] Other 12-04-2021 12:00-0400 Body mass index (BMI) [Ratio] 39.73 kg/m2 Gayathri Scally Other [employer] Other 12-04-2021 12:00-0400 Body weight 101.74 kg Gayathri Scally Other [employer] Other 12-04-2021 12:00-0400 Diastolic blood pressure 74 mm[Hg] Gayathri Scally Other [employer] Other 12-04-2021 12:00-0400 Respiratory rate 18 /min Gayathri Scally Other [employer] Other 12-04-2021 12:00-0400 SaO2% (BldA) [Mass fraction] 95 % Gayathri Scally Other [employer] Other 12-04-2021 12:00-0400 Systolic blood pressure 110 mm[Hg] Gayathri Scally Other [employer] Other 10-29-2021 11:30-0400 Body height 160.02 cm Yo Blank Other [employer] Other 10-29-2021 11:30-0400 Body mass index (BMI) [Ratio] 38.61 kg/m2 Yo Blank Other [employer] Other 10-29-2021 11:30-0400 Body weight 98.88 kg Yo Blank Other [employer] Other 10-29-2021 11:30-0400 Diastolic blood pressure 74 mm[Hg] Yo Blank Other [employer] Other 10-29-2021 11:30-0400 Systolic blood pressure 111 mm[Hg] Yo Blank Other [employer] Other 10-22-2021 13:26-0400 Body temperature 97.2 [degF] Shawna Rumschlag DO Work Phone: [employer] 10-22-2021 13:26-0400 Diastolic blood pressure 71 mm[Hg] Shawna Rumschlag DO Work Phone: [employer] 10-22-2021 13:26-0400 Heart rate 85 /min Shawna Rumschlag DO Work Phone: [employer] 10-22-2021 13:26-0400 Respiratory rate 16 /min Shawna Rumschlag DO Work Phone: [employer] 10-22-2021 13:26-0400 SaO2% (BldA) [Mass fraction] 94 % Shawna Rumschlag DO Work Phone: [employer] 10-22-2021 13:26-0400 Systolic blood pressure 131 mm[Hg] Shawna Rumschlag DO Work Phone: [employer] 10-11-2021 23:48-0400 Body height 160 cm Daniel Adkins MD Work Phone: [facility] [employer] 10-11-2021 23:48-0400 Body mass index (BMI) [Ratio] 36.67 kg/m2 Daniel Adkins MD Work Phone: [facility] [employer] 10-11-2021 23:48-0400 Body temperature 98.6 [degF] Daniel Adkins MD Work Phone: [facility] [employer] 10-11-2021 23:48-0400 Body weight 93.89 kg Daniel Adkins MD Work Phone: [employer] 10-11-2021 23:48-0400 Diastolic blood pressure 88 mm[Hg] Daniel Adkins MD Work Phone: [employer] 10-11-2021 23:48-0400 Heart rate 97 /min Daniel Adkins MD Work Phone[facility] 10-11-2021 23:48-0400 Respiratory rate 16 /min Daniel Adkins MD Work Phone: [facility] [employer] 10-11-2021 23:48-0400 SaO2% (BldA) [Mass fraction] 96 % Daniel Adkins MD Work Phone: [facility] [employer] 10-11-2021 23:48-0400 Systolic blood pressure 134 mm[Hg] Daniel Adkins MD Work Phone: [facility] [employer] Encounters Encounter Date Encounter Type Care Provider Facility Start: 02-01-2024 End: 02-01-2024 ambulatory Ugo Bourgeois MD Facility:[facility] Start: 01-26-2024 End: 01-26-2024 ambulatory LORETO MCNEAL [facility] Start: 01-26-2024 End: 01-26-2024 Subsequent hospital visit by physician Tamar Silveira PT [facility] Comment on above: Arrived Start: 01-13-2024 End: 01-13-2024 Emergency department patient visit Lisette Junior Work Phone: [facility] ED Comment on above: Dizziness (Primary D x) Start: 01-11-2024 End: 01-11-2024 ambulatory Ugo Bourgeois MD Facility:[facility] Start: 12-29-2023 End: 12-29-2023 Subsequent hospital visit by physician Tamar Silveira PT [facility] Start: 12-21-2023 End: 12-21-2023 ambulatory CARMEN [facility] Start: 12-15-2023 End: 12-15-2023 [facility] Start: 12-01-2023 End: 12-01[facility] Start: 11-30-2023 End: 11-30-2023 ambulatory AMENA GARNER Not Available Start: 11-17-2023 End: 11-17-2023 [facility] Start: 11-17-2023 End: 11-17-2023 Subsequent hospital visit by physician Tamar Silveira PT [facility] Comment on above: Arrived Start: 11-16-2023 End: 11-16-2023 ambulatory Ugo Bourgeois MD Facility:[facility] Start: 10-20-2023 End: 10-20-2023 ambulatory SHAWNA MCFADDEN [facility] Start: 10-20-2023 End: 10-20-2023 Subsequent hospital visit by physician Jan Olmstead PT [facility] Physical Therapy Comment on above: Arrived Start: 10-08-2023 End: 10-08-2023 Office outpatient new 30 minutes Dwayne Khoury MD [facility] Comment on above: Macromastia (Primary Dx) Start: 10-08-2023 End: 10-08-2023 ambulatory [facility] Start: 10-06-2023 End: 10-07-2023 Emergency department patient visit NAVEEN DANIEL [facility] Start: 10-05-2023 End: 10-05-2023 Emergency department patient visit NAVEEN SANCHEZ [facility] Start: 10-05-2023 End: 10-05-2023 Emergency department patient visit [facility] Start: 09-22-2023 End: 09-22-2023 Subsequent hospital visit by physician Jan Olmstead PT [facility] Physical Therapy Start: 09-15-2023 End: 09-15-2023 ambulatory [facility]OGDAN [facility] Start: 09-07-2023 End: 09-07-2023 ambulatory SHAWNA RUMNAFISAG [facility] Start: 09-01-2023 End: 09-01-2023 ambulatory SHAWNA BOGDAN [facility] Start: 08-26-2023 End: 08-26-2023 ambulatory SHAWNA EDWARG [facility] Start: 08-26-2023 End: 08-26-2023 Subsequent hospital visit by physician Kofi Villegas PT [facility] Physical Therapy Comment on above: Arrived Start: 08-21-2023 End: 08-21-2023 ambulatory SHAWNA BOGDAN [facility] Start: 08-21-2023 End: 08-21-2023 Subsequent hospital visit by physician Jan Olmstead PT [facility] Physical Therapy Comment on above: Arrived Start: 08-13-2023 End: 08-13-2023 ambulatory LAILA LIEBERMAN Not Available Start: 08-11-2023 End: 08-11-2023 ambulatory SHAWNA BOGDAN [facility] Start: 08-11-2023 End: 08-11-2023 Subsequent hospital visit by physician Jan Olmstead PT [facility] Physical Therapy Comment on above: Arrived Start: 08-04-2023 End: 08-04-2023 ambulatory [facility]NA RUMSCHLAG [facility] Start: 07-29-2023 End: 07-29-2023 ambulatory SHAWNA RUMSCHELIZABETHG [facility] Start: 07-14-2023 End: 07-14-2023 Subsequent hospital visit by physician Rebecca Skinner PT [facility] Start: 07-07-2023 End: 07-07-2023 ambulatory SHAWNA RUMSCHLAG [facility] Start: 06-30-2023 End: 06-30-2023 ambulatory SHAWNA EDWARG [facility] Start: 06-17-2023 End: 06-17-2023 ambulatory SHAWNA RUMNAFISAG [facility] Start: 06-16-2023 End: 06-16-2023 ambulatory SHAWNA BOGDAN [facility] Start: 06-04-2023 End: 06-04-2023 ambulatory SHAWNA RUMNAFISAG [facility] Start: 06-03-2023 End: 06-03-2023 [facility] Start: 06-02-2023 End: 06-02-2023 Office outpatient new 30 minutes Deepika Robledo MD Work Phone: [facility] Comment on above: Mass of upper outer quadrant of right breast (Primary Dx); Abnormal mammogram; Symptomatic mammary hypertrophy Start: 06-02-2023 End: 06-02-2023 ambulatory DEEPIKA ROBLEDO [facility] Start: 06-02-2023 ambulatory [facility] Start: 05-25-2023 End: 05-25-2023 ambulatory ALICIA GAUTHIERO Not Available Start: 05-21-2023 End: 05-21-2023 Patient encounter procedure [facility] Physician [facility] Work Phone: Start: 05-21-2023 End: 05-21-2023 Patient encounter procedure [facility] Work Phone: Start: 05-20-2023 End: 05-20-2023 ambulatory [facility] BOGDAN [facility] Start: 05-19-2023 End: 05-19-2023 ambulatory SHAWNA EDWARG [facility] Start: 05-12-2023 Telephone encounter Deepika Robledo MD Work Phone: [facility] Start: 05-06-2023 End: 05-06-2023 ambulatory SHAWNA RUMSCHLAG [facility] Start: 05-06-2023 End: 05-06-2023 Subsequent hospital visit by physician Rojas Altamirano PTA [facility] Physical Therapy Comment on above: Arrived Start: 05-05-2023 End: 05-05-20[facility] Start: 04-30-2023 Refill Maty Fulton RN [facility] Start: 04-28-2023 End: 04-28-2023 ambulatory GAURAV SELLERS [facility] Start: 04-28-2023 End: 04-28-2023 Office outpatient visit 25 minutes Gaurav Sellers PA Work Phone: [facility] Comment on above: 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 (Primary Dx) Start: 04-21-2023 End: 04-21-2023 [facility] Start: 04-20-2023 End: 04-20-2023 Emergency department patient visit [facility] ED Comment on above: Closed head injury, initial encounter (Primary Dx); Fall due to slipping on ice or snow, initial encounter; Acute cervical myofascial strain, initial encounter Start: 04-16-2023 ambulatory Myrtle Cerna Facility: [facility] Start: 04-07-2023 End: 04-07-2023 [facility] Start: 03-31-2023 Refill Patricia Clay RN [facility] Start: 03-27-2023 End: 03-27-2023 ambulatory PETE SILVER [facility] Start: 03-24-2023 End: 03-24-2023 [facility] Start: 03-19-2023 End: 03-19-2023 ambulatory GABY JUNE Not Available Start: 03-18-2023 Telephone encounter Jan Peterson [facility] Start: 03-18-2023 End: 03-18-2023 ambulatory NON STAFF [facility] Other Start: 03-18-2023 Non-patient / Non-visit MD Yo Blank Work Phone: [facility] Work Phone: Start: 03-17-2023 End: 03-17-2023 ambulatory Jan Garg Other [facility] [employer] Other Start: 03-17-2023 Telephone encounter Jan Garg [facility] Start: 03-16-2023 Encounter for genera l adult medical examination without abnormal findings [facility] Start: 03-16-2023 End: 03-16-2023 ambulatory RORY [facility] Start: 03-16-2023 End: 03-16-2023 ambulatory LULY ENGLISH Not Available Start: 03-10-2023 End: 03-10-2023 ambulatory [facility] Start: 03-10-2023 End: 03-10-2023 Subsequent hospital visit by physician Tamar Silveira PT [facility] Comment on above: Arrived Start: 03-05-2023 (FCCCWMNF/U) Weight Management f/u [facility]ri [facility] Start: 03-05-2023 End: 03-05-2023 [facility] Other Start: 03-05-2023 Registered Recurring MD Monserrat Blank Work Phone: [facility] Work Phone: Start: 03-02-2023 End: 03-02-2023 Emergency department patient visit Sil Sullivan DO Work Phone: [facility] Comment on above: Constipation, unspec ified constipation type (Primary Dx) Start: 02-26-2023 End: 02-26-2023 ambulatory Jan Garg Other [facility] Other Start: 02-26-2023 Telephone encounter Jan Peterson [facility] Start: 02-20-2023 Telephone encounter Argenis Storm RN [facility] Comment on above: Medication, DME Start: 02-18-2023 End: 02-18-2023 ambulatory Jan Garg Other [employer] Other Start: 02-18-2023 Telephone encounter Jan Peterson [facility] Start: 02-10-2023 Telephone encounter Margaux Olea [facility] Start: 02-05-2023 End: 02-05-2023 ambulatory Jan Garg Other [employer] Other Start: 02-05-2023 Office outpatient visit 15 minutes Jan Garg [facility] Start: 01-15-2023 [facility] Weight Management f/u Gayathri Adams [facility] Start: 01-15-2023 End: 01-15-2023 ambulatory Gayathri Adams Other [employer] Other Start: 01-07-2023 End: 01-07-2023 ambulatory Jan Garg Other [employer] Other Start: 01-07-2023 Office outpatient visit 15 minutes Jan Garg [facility] Start: 09-25-2022 End: 01-16-2023 ambulatory TRAIN SYSTEM OPERATOR YUE GRANADO Facility:[facility] Start: 09-25-2022 End: 01-15-2023 Recurring YUE GRANADO [facility] Start: 09-17-2022 End: 09-17-2022 ambulatory Gayathri Adams Other [employer] Other Start: 09-17-2022 Telephone encounter Gayathri last [facility] Start: 08-28-2022 ([facility] RD FU) [facility] F/ U Registerd Marble Polisher Hand Tamar Sosa [facility] Start: 08-28-2022 End: 08-28-2022 ambulatory Tamar Sosa Other [employer] Other Start: 07-29-2022 [facility] Weight Management f/u Gayathri Angie [facility] Start: 07-29-2022 End: 07-29-2022 ambulatory Gayathri Brooklynludy Other [employer] Other Start: 05-20-2022 [facility] Weight Management f/u Gayathri Adams [facility] Start: 05-20-2022 End: 05-20-2022 ambulatory Gayathri Adams Other [employer] Other Start: 05-19-2022 End: 05-19-[address] ALICIA PRESTON . Facility:[facility] Start: 05-07-2022 End: 05-08-[address] DOCTOR ARREOLA Facility:[facility] Start: 04-09-2022 End: 04-09-2022 ambulatory Gayathri Brooklynludy Other [employer] Other Start: 04-09-2022 Telephone encounter Gayathri [place] [facility] Start: 04-08-2022 ([facility] WMNI) WMN Initial Provider Tamar Sosa [facility] Start: 04-08-2022 [facility] Weight Management f/u Gayathri Angie [facility] Start: 04-08-2022 End: 04-08-2022 ambulatory Tamar Sosa Other [employer] Other Start: 02-26-2022 End: 02-26-2022 ambulatory Tamar Sosa Other [employer] Other Start: 02-26-2022 IBT FOR OBESITY GROU P 2-10 30M Tamar Jackkhalif [facility] Start: 02-25-2022 [facility] Weight Management f/u Gayathrikasia Adams [facility] Start: 02-25-2022 End: 02-25-2022 ambulatory Gayathri Adams Other [employer] Other Start: 02-17-2022 End: 02-18-2022 ambulatory RORY DRIVER Facility:[facility] Start: 01-29-2022 End: 01-30-2022 ambulatory JOY Reis [facility] Facility:[facility] Start: 01-14-2022 ([facility] Weight Management f/u Gayathri Adams [facility] Start: 01-14-2022 End: 01-14-2022 ambulatory Gayathri Adams Other [employer] Other Start: 12-05-2021 End: 12-05-2021 ambulatory Gayathri Adams Other [employer] Other Start: 12-05-2021 Telephone encounter Gayathri Peterson [facility] Start: 12-04-2021 End: 12-04-2021 ambulatory Gayathri Adams Other [employer] Other Start: 12-04-2021 Nutrition therapy Gayathrikasia Adams [facility] Start: 10-29-2021 End: 10-29-2021 ambulatory Yo Blank Other [employer] Other Start: 10-29-2021 Patient encounter procedure Yo Blank [facility] Start: 10-22-2021 End: 10-22-2021 Emergency department patient visit Shawna Mcfadden DO Work Phone: [facility] Comment on above: Acute diffuse otitis externa of left ear (Primary Dx) Start: 10-11-2021 End: 10-12-2021 Emergency department patient visit Daniel Adkins MD Work Phone: [facility] Comment on above: Pilonidal cyst (Prim romero Dx) Start: 11-21-2016 End: 11-26-2016 [facility] Procedures Date Procedure Procedure Detail Performing Clinician Start: 01-13-2024 Urinalysis microscopic only Lisette Ana Junior DO Work Phone: Start: 01-13-2024 Urnls dip stick/tabl et rgnt auto w/o microscopy Lisette J Junior DO Work Phone: Start: 01-13-2024 Ecg routine ecg w/le ast 12 lds w/i&r Lisette J Junior DO Work Phone: Start: 01-13-2024 Comprehensive metabo lic panel Lisette Ana Junior DO Work Phone: Start: 05-25-2023 Microscopic observat ion [Identifier] in Cervix by Cyto stain Deepika Robledo MD Work Phone: Start: 04-20-2023 Ct cervical spine w/ o contrast material Precious Octavio Urbina BOOKSTORE MANAGER - TRAIN SYSTEM OPERATOR Work Phone: Start: 04-20-2023 Ct head/brain w/o co ntrast material Precious Octavio Urbina BOOKSTORE MANAGER - TRAIN SYSTEM OPERATOR Work Phone: Start: 05-02-2022 Microalbumin [Mass/v olume] in Urine by Test strip Patricia Clay RN Start: 05-02-2020 Adult depression scr eening assessment Argenis Storm RN Start: 08-30-2016 Cholecystectomy YUE JESSICA TERPablo Start: 01-03-2013 nasal surgery YUE ALVARENGA RS Tonsillectomy YUE GRANADO Plan of Treatment Date Care Activity Detail Author Start: 05-24-2026 Screening for malignant neoplasm of cervix Pap Smear [facility] Start: 03-16-2025 Screening for malignant neoplasm of breast Breast cancer screen [facility] Start: 11-10-2024 End: 11-10-2024 Patient encounter procedure 11/10/2024 11:30 AM EDT Office Visit [facility] [address] [place] [address] Karen Cotter, BOOKSTORE MANAGER - TRAIN SYSTEM OPERATOR [address] [place] [phone] 1 year KUB [facility] Comment on above: 1 year KUB Start: 10-07-2024 Adult BMI Screening Adult BMI Screen ing [facility] Start: 10-07-2024 Tobacco Screening Tobacco Screening [facility] Start: 06-01-2024 Adult BMI Screening Adult BMI Screen ing [facility] Start: 04-28-2024 Adult BMI Screening Adult BMI Screen ing [facility] Start: 04-28-2024 Tobacco Screening Tobacco Screening [facility] Start: 03-16-2024 Adult BMI Screening Adult BMI Screen ing [facility] Start: 02-09-2024 End: 02-09-2024 Patient encounter procedure 02/09/2024 11:15 AM EST Appointment [facility] Physical Therapy [address] [place] [phone] Tamar Silveira, PT dry needling [facility] Physical Therapy Comment on above: dry needling Start: 02-09-2024 ambulatory Ambulatory [facility] Start: 02-08-2024 End: 02-08-2024 Patient encounter procedure 02/08/2024 1:45 PM EST Appointment [facility] [address] [facility] [place] [phone] Chepe Ingram MD [address] [place] [address] [facility] Start: 01-30-2024 Adult BMI Screening Adult BMI Screen ing [facility] Start: 01-30-2024 Tobacco Screening Tobacco Screening [facility] Start: 01-26-2024 End: 01-26-2024 Patient encounter procedure 01/26/2024 8:00 AM EST Appointment [facility] Physical Therapy [address] [place] [address] Tamar Silveira, PT dry needling [facility] Physical Therapy Comment on above: dry needling Start: 01-13-2024 End: 01-13-2024 Patient encounter procedure 01/13/2024 8:15 AM EST Office Visit [facility] [address] [place] [address] Georges Valencia, PA-C [address] [place] [address] incontinence [facility] Comment on above: incontinence Start: 12-29-2023 End: 12-29-2023 Patient encounter procedure 12/29/2023 9:00 AM EDT Appointment [facility] Physical Therapy [address] [place] [phone] Tamar Silveira, PT NEEDLING [facility] Physical Therapy Comment on above: NEEDLING Start: 12-15-2023 End: 12-15-2023 Patient encounter procedure 12/15/2023 9:00 AM EDT Appointment [facility] Physical Therapy [address] [place] [phone] Tamar Silveira, PT NEEDLING [facility] Physical Therapy Comment on above: NEEDLING Start: 12-01-2023 End: 12-01-2023 Patient encounter procedure 12/01/2023 9:45 AM EDT Appointment [facility] Physical Therapy [address] [place] [phone] Tamar Silveira, PT NEEDLING [facility] Physical Therapy Comment on above: NEEDLING Start: 11-01-2023 Influenza vaccination Influenza Vacc ine [facility] Start: 10-08-2023 End: 10-08-2023 Patient encounter procedure 10/08/2023 9:00 AM EDT Office Visit [facility] [address] [place] [address] Dwayne Khoury MD [address] [place] [address] [facility] Start: 10-01-2023 Influenza vaccination Flu vaccine (# 1) [facility] Start: 09-01-2023 End: 09-01-2023 Patient encounter procedure 09/01/2023 10:30 AM EDT Appointment [facility] Physical Therapy [address] [place], [place] [phone] Osito Rowan [facility] Physical Therapy Start: 08-26-2023 End: 08-26-2023 Patient encounter procedure 08/26/2023 2:30 PM EDT Appointment [facility] Physical Therapy [address] [place], [place] [phone] Kofi Villegas, PT [facility] Physical Therapy Start: 08-18-2023 End: 08-18-2023 Patient encounter procedure 08/18/2023 9:45 AM EDT Appointment [facility] Physical Therapy [address] [place], [place] [phone] Osito Rowan [facility] Start: 08-11-2023 End: 08-11-2023 Patient encounter procedure 08/11/2023 1:15 PM EDT Appointment [facility] Physical Therapy [address] [place], [place] [phone] Jan Olmstead, PT DRY NEEDLING [facility] Physical Therapy Comment on above: DRY NEEDLING Start: 08-04-2023 End: 08-04-2023 Patient encounter procedure 08/04/2023 4:15 PM EDT Appointment [facility] Physical Therapy [address] [place], [place] [phone] Osito Rowan [facility] Physical Therapy Start: 06-03-2023 End: 06-03-2023 Patient encounter procedure 06/03/2023 3:30 PM EDT Appointment [facility] Physical Therapy [address] [place] [phone] Osito Rowan [facility] Physical Therapy Start: 06-02-2023 End: 06-02-2023 Patient encounter procedure [facility] Physical Therapy Comment on above: DRY NEEDLING- jd gibson coordinates with son's appt Start: 05-23-2023 Hepatitis B vaccine (3 of 3 - Hep B Twinrix 3-dose series) Hepatitis B vaccine (3 of 3 - Hep B Twinrix 3-dose series) [facility] Start: 05-20-2023 End: 05-20-2023 Patient encounter procedure 05/20/2023 3:15 PM EDT Appointment [facility] Physical Therapy [address] [place] [phone] Rojas Altamirano PTA [facility] Start: 05-19-2023 End: 05-19-2023 Patient encounter procedure 05/19/2023 12:45 PM EDT Appointment [facility] Physical Therapy [address] [place] [phone] Rebecca Skinner, PT DRY NEEDLING- dont move coordinates with son's apptDRY NEEDLING [facility] Physical Therapy Comment on above: DRY NEEDLING- dont m ove coordinates with son's apptDRY NEEDLING Start: 05-05-2023 End: 05-05-2023 Patient encounter procedure [facility] Physical Therapy Comment on above: DRY NEEDLING DRY NEEDLING- dont m ove coordinates with son's appt Start: 05-03-2023 Urine screening for protein Urine Microalbumin [facility] Start: 04-28-2023 End: 04-28-2023 Patient encounter procedure 04/28/2023 10:45 AM EST Office Visit [facility] [address] [place] [phone] Gaurav Sellers, PA [address] [place] [address] [facility] Start: 04-21-2023 End: 04-21-2023 Patient encounter procedure [facility] Physical Therapy Comment on above: DRY NEEDLING DRY NEEDLING- dont m ove coordinates with son's appt Start: 04-07-2023 End: 04-07-2023 Patient encounter procedure 04/07/2023 2:15 PM EST Appointment [facility] Physical Therapy [address] [place] [phone] Rebecca Skinner, PT DRY NEEDLING [facility] Physical Therapy Comment on above: DRY NEEDLING Start: 03-27-2023 End: 03-27-2023 Admission to same day surgery center 03/27/2023 1:27 PM EST - 03/27/2023 1:33 PM EST Surgery [facility] [address] [place] [address] Pete Silver MD [address] [place] [address] INJECTION BLOCK SACROILIAC JOINT [63225 (CPT )] [facility] Comment on above: INJECTION BLOCK SACR OILIAC JOINT [38179 (CPT )] Start: 03-27-2023 End: 03-27-2023 Inject si joint arthrgrphy&/anes/stero id w/monika INJECTION BLOCK SACROILIAC JOINT Disorder of sacrum 03/27/2023 1:27 PM EST [facility] Start: 03-27-2023 Subsequent hospital visit by physician 03/27/2023 1:27 PM EST Hospital Encounter [facility] [address] [place] [phone] Pete Silver MD [address] [place] [address] [facility] Start: 03-24-2023 End: 03-24-2023 Patient encounter procedure 03/24/2023 2:15 PM EST Appointment [facility] Physical Therapy [address] [place] [phone] Rebecca Skinner, PT DRY NEEDLING [facility] Physical Therapy Comment on above: DRY NEEDLING Start: 03-19-2023 [facility] Start: 03-16-2023 End: 03-16-2023 Patient encounter procedure 03/16/2023 11:45 AM EST Appointment [facility] M[facility] DEXA [address] [place] [phone] [facility] Start: 03-10-2023 End: 03-10-2023 Patient encounter procedure 03/10/2023 2:30 PM EST [facility] [address] [place], [place] [phone] Rebecca Skinner PT [facility] Start: 09-30-2022 Influenza vaccination Flu vaccine (# 1) [employer] Start: 10-31-2021 Influenza vaccination Flu vaccine (# 1) [facility] Start: 09-03-2021 DTaP,Tdap and Td Vaccines (1 - Tdap) DTaP,Tdap and Td Vaccines (1 - Tdap) [facility] Start: 09-03-2021 DTaP/Tdap/Td vaccine (1 - Tdap) DTaP/Tdap/Td vaccine (1 - Tdap) [facility] Start: 05-02-2021 Depression Screening Depression Scre [facility] Start: 2020 Lipid panel Lipids [facility] [employer] Start: 01-04-2020 Diabetic foot examination Diabetic Foot Exam [facility] Start: 09-25-2015 Diabetes screen Diabetes screen [facility] Start: 2010 Screening for malignant neoplasm of cervix [facility] Start: 2001 Screening for malignant neoplasm of cervix Pap smear [facility] Start: 09-25-1999 DTaP/Tdap/Td vaccine (1 - Tdap) DTaP/Tdap/Td vaccine (1 - Tdap) [facility] Start: 1998 Adult BMI Follow Up Plan Adult BMI Follow Up Plan [facility] Start: 1998 Hepatitis C screening Hepatitis C sc reen [facility] Start: 09-25-1995 HIV screening HIV screen [facility] [employer] Start: 1993 Varicella vaccine (1 of 2 - 13+ 2-dose series) Varicella vaccine (1 of 2 - 13+ 2-dose series) [facility] Start: 1992 Depression Screen Depression Screen [facility] Start: 1992 Depression Screening Depression Scre ening [facility] Start: 1990 Lipid panel Lipids [facility] Start: 1981 Varicella vaccine (1 of 2 - 2-dose childhood series) Varicella vaccine (1 of 2 - 2-dose childhood series) [facility] Start: 03-27-1981 COVID-19 Vaccine (#1) COVID-19 Vacci ne (#1) [facility] Start: 1980 Glaucoma screening Diabetic Op hthalmology Exam [facility] Start: 1980 Hepatitis B vaccine (1 of 3 - 3-dose series) Hepatitis B vaccine (1 of 3 - 3-dose series) [facility] EKG 12 Lead EKG 12 Lead ECG Routine 01/13/2024 2:59 PM EST [facility] Inject si joint arthrgrphy&/anes/stero id w/monika INJECTION BLOCK SACROILIAC JOINT Disorder of sacrum [facility] Njx dx/ther agt pvrt facet jt lmbr/sac 1 level INJECTION BLOCK NERVE MEDIAL BRANCH Lumbosacral spondylosis without myelopathy [facility] Immunizations Immunization Date Immunization Notes Care Provider Fa cili 12-22-2022 influenza virus vaccine, unspecified formulation Deepika Robledo MD Work Phone: [facility] 12-19-2018 influenza, injectabl e, quadrivalent, preservative free Argenis Storm RN [facility] 12-02-2017 influenza, injectabl e, quadrivalent, preservative free Argenis Storm RN [facility] 12-02-2017 pneumococcal conjuga te vaccine, 13 valent Argenis Storm RN [facility] 10-10-2016 influenza virus vaccine, unspecified formulation Argenis Storm RN [facility] 12-19-2013 influenza virus vaccine, live, attenuated, for intranasal use Argenis Storm RN [facility] 12-03-2012 influenza virus vaccine, whole virus Argenis Storm RN [facility] 12-29-2011 influenza virus vaccine, whole virus Argenis Storm RN [facility] 12-23-2010 influenza virus vaccine, whole virus Argenis Storm RN [facility] 12-18-2008 influenza virus vaccine, whole virus Argenis Storm RN [facility] Payers Date Payer Category Payer Unknown 2021 Self-pay [id number] 2002 Medicaid [employer] [id number] 2002-Present [phone] [address] [place] [address] [id number] 2002 Medicaid HMO [employer] [employer] [id number] 1980 Unknown [id number] 2.16.840.1.890977.3.579.2.593 1980 Unknown [id number] 2.16.840.1.919259.3.579.2.593 1980 Unknown [id number] 2.16.840.1.196799.3.579.2.593 1980 Unknown [id number] 2.16.840.1.631817.3.579.2.593 1980 Unknown [id number] 2.16.840.1.493809.3.579.2.727 1980 Unknown [id number] 2.16.840.1.620022.3.579.2.1286 1980 Unknown [id number] 2.16.840.1.774734.3.579.2.1285 1980 Unknown [id number] 2.16840.1.505149.3.579.2.1285 1980 Unknown [id number] 2.840.1.697542.3.579.2.1285 1980 Unknown [id number] 2.16.840.1.182927.3.579.2.1258 1980 Unknown [id number] 2.840.1.735477.3.579.2.1258 1980 Unknown [id number] 2.16840.1.530570.3.579.2.1258 1980 Unknown [id number] 2.840.1.988849.3.579.2.1258 1980 Unknown [id number] 2.840.1.357188.3.579.2.1258 1980 Unknown [id number] 2.0.1.927864.3.579.2.1285 1980 Unknown [id number] 2.840.1.857810.3.579.2.1285 1980 Unknown [id number] 2.840.1.531891.3.579.2.1285 1980 Unknown [id number] 2.840.1.759858.3.579.2.1285 1980 Unknown [id number] 2840.1.496538.3.579.2.1285 1980 Unknown [id number] 2.840.1.989689.3.579.2.1285 1980 Unknown [id number] 2.840.1.370424.3.579.2.1285 1980 Unknown [id number] 2.840.1.720131.3.579.2. 1980 Unknown [id number] 2.840.1.998988.3.579.2. 1980 Unknown [id number] 2.16.840.1.887631.3.579.2. 1980 Unknown [id number] 2.16.840.1.106781.3.579.2. 1980 Unknown [id number] 2.16.840.1.796498.3.579.2. 1980 Unknown [id number] 2.16840.1.080726.3.579.2. 1980 Unknown [id number] 2.16840.1.987268.3.579.2. 1980 Unknown [id number] 2.16840.1.014207.3.579.2. 1980 Unknown [id number] 2.16840.1.525782.3.579.2. 1980 Unknown [id number] 2.840.1.400372.3.579.2. 1980 Unknown [id number] 2.840.1.058299.3.579.2. 1980 Unknown [id number] 2.840.1.087856.3.579.2. 1980 Unknown [id number] 2.840.1.440819.3.579.2. 1980 Unknown [id number] 2.840.1.195148.3.579.2. 1980 Unknown [id number] 2.16840.1.026586.3.579.2. 1980 Unknown [id number] 2.16840.1.687268.3.579.2. 1980 Unknown [id number] 2.16840.1.728327.3.579.2. 1980 Unknown [id number] 2.16840.1.092106.3.579.2. 1980 Unknown [id number] 2.16.840.1.025390.3.579.2.173 1980 Unknown [id number] 2.16.840.1.125917.3.579.2. 1980 Unknown [id number] 2.16.840.1.475354.3.579.2. 1980 Unknown [id number] 2.16.840.1.451803.3.579.2. 1980 Unknown [id number] 2.16.840.1.587566.3.579.2. 1980 Unknown [id number] 2.16.840.1.770503.3.579.2. 1980 Unknown [id number] 2.16.840.1.836501.3.579.2. 1980 Unknown [id number] 2.16840.1.065741.3.579.2. 1980 Unknown [id number] 2.16840.1.013564.3.579.2. 1980 Unknown [id number] 2.16840.1.016551.3.579.2. 1980 Unknown [id number] 2.16.840.1.167340.3.579.2. 1980 Unknown [id number] 2.16840.1.983845.3.579.2. 1980 Unknown [id number] 2.16.840.1.490260.3.579.2. 1980 Unknown [id number] 2.16.840.1.721723.3.579.2. 1980 Unknown [id number] 2.16.840.1.518564.3.579.2. 1980 Unknown [id number] 2.16.840.1.896494.3.579.2. 1980 Unknown [id number] 2.16.840.1.798454.3.579.2.173 1980 Unknown [id number] 2.16.840.1.293544.3.579.2.196 1980 Unknown [id number] 2.16.840.1.125492.3.579.2.196 1980 Unknown [id number] 2.16.840.1.665737.3.579.2.196 1959 Medicaid [id number] Unknown [id number] 2.16.840.1.883428.3.579.2.531 Unknown [id number] 2.16.840.1.920729.3.579.2.531 Unknown [id number] 2.16.840.1.219198.3.579.2.531 Social History Date Type Detail Facility Start: 09-02-2017 End: 11-11-2023 Tobacco smoking status SDIS Never smoked tobacco [employer] Start: 09-02-2017 End: 11-11-2023 Tobacco use and exposure Smokeless tobacco non-user [facility] Phone: Start: 10-11-2021 End: 01-13-2024 Alcohol intake Current non-drinker of alcohol (finding) [facility] Phone: Start: 1980 Sex Assigned At Not on file B ON [employer] Phone: Start: 10-01-2021 End: 10-22-2021 Exposure to SARS-CoV-2 (event) Not sure [facility] Phone: Start: 10-11-2021 End: 01-13-2024 Sex Assigned At [facility] Tobacco smoking status Never [facility] Start: 10-11-2021 End: 01-13-2024 History of Social function [facility] Start: 1980 Sex Assigned At Female F [facility] How often to you hav e a drink containing alcohol? Never [employer] Start: 10-05-2014 Sex Female (finding) [facility] Medical Equipment Procedure Code Equipment Code Equipment Origin al Text Equipment Identifier Dates [place] Sut 5.5mm 2 Ft Crkscr Fbrwr Shldr 3 Pk 14.7mm Strl Ea=Bill-Only Rpl [id number] - [id number] Start: 05-15-2022 Use to test BLOO D SUGAR TWICE DAILY [id number] Start: 05-28-2020 Use to test BLOO D SUGAR TWICE DAILY, Diagnosis: E11.9 [id number] Start: 03-08-2020 Clinical Notes 10-22-2021 to 01-13-2024 Discharge InstructionsAttachmentsJan Olmstead, IRVING - 10/20/2023 9:45 AM Alexx Khoury MD - 10/08/2023 9:00 AM Filomena Nassar - 09/22/2023 1:15 PM EDTPatient InstructionsAttachments Note Date & Type Note Facility 01-13-2024 Hospital Discharg e instructions Lisette Junior DO - 01/13/2024 5:40 PM EST Increase your fluid intake. Follow-up with your doctor to discuss your medications especially the gabapentin and cyclobenzaprine which can certainly make you feel tired and groggy all the time. The following attachments cannot be sent through Care Everywhere.Dizziness (Mosotho)documented in this encounter [facility] 10-20-2023 History of Presen t illness Narrative [facility] Outpatient Physical Therapy Daily Note Patient: Karma Candelaria : 1980 CSN #: [id number] Referring Physician: Shawna Mcfadden DO Date: 10/20/2023 Treatment Diagnosis: LBP, cervical spine pain Onset Date: 02/18/23 PT Insurance Information: [facility] [facility] Total # of Visits Approved: 32 [...] Frame for Residential Goals : 6 visits Slat Basket Maker Helper Goal 1: Pt will be independent and compliant with exercise while maintaining improved posture 50% of the time - not met Residential Goal 2: Pt will be able to perform full cervical ROM without increase complaints of baseline pain with initiation to demonstrate imporved control of pain -NOT MET: continued cervical spine pain. Residential Goal 3: Pt will report 40% improvement in overall complaints and improved tolerance to her job tasks - 40% improved. Slat Basket Maker Helper Goal 4: Pt kvng UE strength will be 5/5 without increasing pain complaints to assist in tolerance of lifting and carrying -PARTIALLY MET 4+/5 grossly. Minutes Tracking: Time In: 944 Time Out: 1030 Minutes: 45 Timed Code Treatment Minutes: 43 Minutes Jan Olmstead PT, DPT, OCS, Cert. DN Date: 10/20/2023 documented in this encounter [facility] 10-08-2023 History of Presen t illness Narrative [facility] Plastic & Reconstructive Surgery [address] Office Dwayne Khoury MD, PhD Caryl Mao, BOOKSTORE MANAGER-TRAIN SYSTEM OPERATOR Dayan Harmon PA-C Plastic Surgery New Patient Consultation Note Reason for visit : Chief Complaint Patient presents with New Patient History of present illness: Karma Banegas 43 y.o. is here today to discuss bilateral breast reduction. She has been referred by Dr. Robledo. She notes that she has experienced large breasts since her teenage years. She experiences symptoms of neck pain, back pain, shoulder pain, bra strap grooving, and rashes below her breasts for which she has used topical creams or powders for. She has difficulting finding brasierres and clothing to fit appropriately. Patient has tried conservative therapies of supportive bra, weight loss, physical therapy, chiropractic treatment, and weight loss medication with no improvement of her symptoms of back/neck pain. She has Tried medications including Ozempic and Victoza for weight loss however her Victoza is currently on back order. Patient has tried therapies of or has been prescribed topical creams by a treating provider with no improvement in her rashes. The size of patient's breasts does affect activities of daily living . She states that she met with a surgeon several years ago who wanted to do free nipple grafts ith her reduction mammoplasty however she is strongly opposed to this approach. She states that she would like to preserve her nipple sensation. She wears a medical bra for support however she states it only comes in certain sizes which does not improve her neck or back pain.. She has A history of enlarged right axillary lymph nodes for which she saw Dr. Robledo who felt this was most consistent with benign lymph nodes. Was recommended however yearly mammograms were recommended. She denies any breast surgeries. She has had a cholecystectomy. She also has a history of right rotator cuff repain in 2022 She currently wears a size K Desires D or DD cup size. Personal history is negative for benign masses/breast cancer Pertinent breast surgeries negative Mammogram history yes Date of last Mammogram 03/16/2023 abnormal with benign appearing right upper outer quadrant mass follow up Ultrasound was done in [place] the nodule was noted but seemed consistent with a lymph node. Breast size has remained the same with weight loss Family history is positive for breast disease and breast cancer in her maternal grandmother Did she have children did breast feed Past Medical History: Past Medical History: Diagnosis Date Anxiety Asthma Back pain Bipolar 1 disorder ([facility]) Breast disorder enlarged lymph nodes in both breast Carpal tunnel syndrome Chronic pain disorder Deep vein thrombosis ([facility]) blood clot in left arm Dental disease [...] night 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 ([facility]) 11/10/2017 Visual impairment Past Surgical History: Past Surgical History: Procedure Laterality Date ANKLE SURGERY Left x2 ARTHROSCOPY SHOULDER WITH ROTATOR CUFF REPAIR Right 05/15/2022 Performed by Chepe Ingram MD at [facility] DEBRIDEMENT Right 05/15/2022 Performed by Chepe Ingram MD at [facility] DECOMPRESSION OF SUBACROMIAL SPACE WITH PARTIAL ACROMIOPLASTY Right 05/15/2022 Performed by Chepe Ingram MD at [facility] INJECTION BLOCK EPIDURAL STEROID LUMBAR/SACRAL: L 4/5 WU N/A 04/22/2021 Performed by Pete Silver MD at [facility] BLOCK SACROILIAC JOINT Left 03/27/2023 Performed by Pete Silver MD at [facility] CERVICAL OR THORACIC EPIDURAL BLOCK WITH STEROIDS: C67 WU N/A 01/29/2018 Performed by Pete Silver MD at [facility] IN[facility] LUMBAR OR SACRAL EPIDURAL BLOCK WITH STEROIDS: L45 WU N/A 10/15/2018 Performed by Pete Silver MD at [facility] MEDIAL BRANCH NERVE BLOCK: bilat L45 51 Bilateral 07/30/2018 Performed by Pete Silver MD at [facility] INJECTION SPINE TRANSFORAMINAL: left C 5,6 Nroot Left 01/09/2023 Performed by Pete Silver MD at [facility] LAPAROSCOPIC CHOLECYSTECTOMY N/A 09/16/2016 Performed by Juan Ramon Jean MD at [facility] LIVER BIOPSY EMA PROCEDURE Right 05/15/2022 Performed by Chepe Ingram MD at [facility] NASAL SURGERY REPAIR HERNIA UMBILICAL 09/16/2016 Performed by Juan Ramon Jean MD at [facility] TONSILLECTOMY Allergies: Allergies Allergen Reactions Metformin Severe hypoglycemia Celexa [Citalopram] Keflex [Cephalexin] Poison Devorah Extract Social History: Social History Socioeconomic History Marital status: Spouse name: Not on file Number of children: Not on file Years of education: Not on file Highest education level: Not on file Occupational History Not on file Tobacco Use Smoking status: Never Smokeless tobacco: Never Vaping Use Vaping status: Never Used Substance and Sexual Activity Alcohol use: No Drug use: No Sexual activity: Defer control/protection: Implant Other Topics Concern Not on file Social History Narrative Not on file Social Determinants of Health Financial Resource Strain: Not on file Food Insecurity: No Food Insecurity (10/05/2023) Hunger Screening Food Insecurity - Worry: Never True Food Insecurity - Inability: Never True Transportation Needs: Not on file Physical Activity: Not on file Stress: Not on file Social Connections: Not on file Interpersonal Safety: Not on file Housing Instability: Not on file Family History: Family History Problem Relation Age of Onset Diabetes Mother Thyroid Issues Mother Bleeding Disorder Father Thyroid Issues Father Diabetes Father Breast cancer Maternal Grandmother Stroke Maternal Grandfather Stroke Paternal Grandmother Anesthesia problems Neg Hx Current Medications: Current Outpatient Medications: albuterol (PROVENTIL HFA;VENTOLIN HFA) [...] 5 blood-glucose meter (TRUE METRIX GLUCOSE METER) [facility], use to test BLOOD SUGAR TWICE DAILY, [...] , Rfl: lancets (UNILET LANCET) 28 gauge [facility], Use to test BLOOD SUGAR TWICE DAILY, [...] on 04/28/2023), Disp: 30 tablet, Rfl: 0 hchrpobh-memf-JC-calcium &mins (THERAGRAN-M) 9 mg iron-400 mcg tablet, [...] taking: Reported on 04/28/2023), Disp: , Rfl: Review of Systems: Review of Systems neck pain, back pain, rashes of her pannus, breast and thighs. She complains of boils within her inner thighs as well as rubbing. Physical Exam: Vital Signs: Vitals: 10/08/23 0917 BP: 145/86 Pulse: 102 Resp: 16 Weight: 93.1 kg (205 lb 4 oz) Height: 160 cm (5' 3 ) BMI: Body mass index is 36.36 kg/m . Body habitus obese General appearance - alert, well appearing, and in no distress Mental status - alert, oriented to person, place, and time Eyes - sclera anicteric Neck - supple Chest - non-labored breathing Heart - regular rate Abdomen - soft, nontender, nondistended. Extremities - no lower leg edema; no ulcers Vascular- peripheral pulses intact. Focused examination: Breasts: Extra Large size bilaterally, left slightly larger than right. Ptosis grade 3 bilaterally, left slightly more ptotic than right. Contour pendulous . Nipple areolar complex is larger than normal sized. Skin exam shows skin to be intact.. Parenchymal palpation normal bilaterally. Nipple sensation is intact to light touch. Axillary fullness is moderate. Dense breast tissue. Intertriginous rash in inframammary folds absent on today's exam . Shoulder grooves are present. Abdomen--no rashes today. Striate above and below. Healed port site scars. Significant diastasis vs hernia. Pannus to level of the mons MEASUREMENTS: Left Right Base width: 16cm cm Sternal Notch to Nipple: 42 40 IMF to Nipple: 14 16 Nipple to nipple: 25 Areolar Diameter: 4.5 6 Female strike operations officer present: yes. Impression : No diagnosis found. Plan : Karma Banegas is a good candidate for bilateral breast reduction, as many of her ongoing medical complaints could be related to the large size of her breasts. An estimated weight of 687 grams or more could be removed from each breast, based on the NativeADnur sliding scale. She understands that cup size cannot be guaranteed and that the goal is to alleviate her symptoms. We discussed the procedure at length, including indication, alternatives, risks, benefits, expected results, surgical technique, scar placement, and postoperative care. Also discussed it's not unusual to have some lumpy areas on her breasts, which will improve with massage and time. We reviewed that biggest risks with breast reduction surgery are scarring which can be difficult to predict, breast or nipple asymmetry, fat necrosis, nipple sensitivity and nipple healing issues. All her questions were answered. She was eager to proceed with surgery. We reviewed activity limitations postoperatively and that she should be able to to most things, but should refrain from repetitive overhead activities, lifting/pushing/pulling anything heavy or bouncy activities for 6 weeks. We discussed what this would mean for her work situation and estimate she will be off work 2-6 weeks depending on her recovery . We reviewed initially breasts will be high, tight and swollen, and that over the few few months, her breasts will settle. We also discussed that breast size can change management expert the years with weight loss and weight gain. She should not get fit or wear an underwire bra for approximately 3 months. Also discussed if indicated based on her age, she should not have a screening mammogram for at least 6 months post operatively. We discussed that we would not recommend doing both the abdomen and breasts at the same time Typically with weight loss surgery, we address the abdomen first however she has several symptoms as including back and neck pain For which the breast reduction would likely provide her significant however not complete relief due to her previous medical history of shoulder surgery. She does have a history of diabetes and recent A1c was 5.7 it is well controlled on medications. She does not require insulin. She denies any tobacco use an had a questionable DVT in her left upper extremity from her Nexplanon implant Photographs taken: yes Mammogram status: up to date - report reviewed Medical clearance required: yes PCP Nicotine status: non-smoker DAYAN HARMON PA-C I, DWAYNE KHOURY MD, PHD personally performed the face to face evaluation on this patient. I discussed with the patient and confirmed the accuracy and completeness of the aforementioned history, and I personally performed the clinical examination of the patient. I have established and discussed the course of treatment with the patient. Dwayne Khoury MD, PhD [facility] Plastic & Reconstructive Surgery Total time spent was 30 minutes: Preparing to see the patient (e.g., review of tests) Obtaining and/or reviewing separately obtained history Performing a medically appropriate examination and/or evaluation Counseling and educating the patient/family/caregiver Ordering medications, tests, or procedures Referring and communicating with other health field care advocate (not separately reported) Documenting clinical information in the electronic or other health record Independently interpreting results (not separately reported) and communicating results to the patient/family/caregiver Care coordination (not separately reported) Please note that portions of this note were generated using voice recognition [employer] dictation software. Although every effort was made to ensure the accuracy of this automated bus system operator, some errors in bus system operator may have occurred. documented in this encounter [facility] 09-22-2023 History of Presen t illness Narrative [...] next appt. documented in this encounter [facility] 08-26-2023 History of Presen t illness Narrative [facility] Outpatient Physical Therapy Daily Note Patient: Karma Candelaria : 1980 CSN #: [id number] Referring Physician: Shawna Mcfadden DO Date: 08/26/2023 Diagnosis: Z76.89 - Persons encountering health services in other specified circumstances Treatment Diagnosis: pain in cervical and LB Onset Date: 02/18/23 PT Insurance Information: 140 [employer] Total # of Visits Approved: 24 Per [...] the cervical area and her LB area.-met Slat Basket Maker Helper Goals Time Frame for Residential Goals : 6 visits Slat Basket Maker Helper Goal 1: Pt will be independent and compliant with exercise while maintaining improved posture 50% of the time. Slat Basket Maker Helper Goal 2: Pt will be able to perform full cervical ROM without increase complaints of baseline pain with initiation to demonstrate imporved control of pain. Slat Basket Maker Helper Goal 3: Pt will report 40% improvement in overall complaints and improved tolerance to her job tasks. Minutes Tracking: Time In: 1430 Time Out: 1500 Minutes: 30 Timed Code Treatment Minutes: 29 Minutes Kofi Villegas, PT, DPT Date: 08/26/2023 documented in this encounter [facility] 08-21-2023 History of Presen t illness Narrative Physical Therapy Disregard the no show note on 08/17. This was added in error. [facility] Outpatient Physical Therapy Daily Note Patient: Karma Candelaria : 1980 CSN #: [id number] Referring Physician: Shawna Mcfadden DO Date: 08/21/2023 Treatment Diagnosis: pain in cervical and LB Onset Date: 02/18/23 PT Insurance Information: [facility] Plan Total # of Visits Approved: 24 [...] the cervical area and her LB area. Slat Basket Maker Helper Goals Time Frame for Residential Goals : 6 visits Residential Goal 1: Pt will be independent and compliant with exercise while maintaining improved posture 50% of the time. Residential Goal 2: Pt will be able to perform full cervical ROM without increase complaints of baseline pain with initiation to demonstrate imporved control of pain. Residential Goal 3: Pt will report 40% improvement [...] Date: 08/21/2023 documented in this encounter [facility] 08-11-2023 History of Presen t illness Narrative [facility] Outpatient Physical Therapy Daily Note Patient: Karma Candelaria : 1980 CSN #: [id number] Referring Physician: Shawna Mcfadden DO Date: 08/11/2023 Diagnosis: Z76.89 - Persons encountering health services in other specified circumstances Treatment Diagnosis: pain in cervical and LB Onset Date: 02/18/23 PT Insurance Information: [facility] Total # of Visits Approved: 24 [...] LB area. Residential Goals Time Frame for Slat Basket Maker Helper Goals : 6 visits Slat Basket Maker Helper Goal 1: Pt will be independent and compliant with exercise while maintaining improved posture 50% of the time. Slat Basket Maker Helper Goal 2: Pt will be able to perform full cervical ROM without increase complaints of baseline pain with initiation to demonstrate imporved control of pain. Residential Goal 3: Pt will report 40% improvement [...] DPT Date: 08/11/2023 documented in this encounter [facility] 07-14-2023 History of Presen t illness Narrative Physical Therapy [facility] Inpatient/Observation/Outpatient Rehabilitation Date: 07/14/2023 Patient Name: Karma [...] does not require skilled services due to: Therapist/Blue Leather Setter will attempt to see this patient, at our earliest opportunity. Filomena Raphael Date: 07/14/2023 documented in this encounter [facility] 06-02-2023 History of Presen t [...] Year discontinued? N/a Are you of Ashkenazi Sikh decent? no Family history of cancer: relation [...] or lymphadenopathy. I reviewed notes from her boat deckhand dated 05/05/2023, imaging including mammogram and ultrasound dated 03/16/2023 and 03/25/2023, history form dated 06/02/2023. Past Medical History Past Medical History: Diagnosis Date Anxiety Asthma Back pain Bipolar 1 disorder ([facility]) Breast disorder enlarged lymph nodes in both breast Carpal tunnel syndrome Chronic pain disorder Deep vein thrombosis ([facility]) blood clot in left arm Dental disease [...] night 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 ([facility]) 11/10/2017 Visual impairment Past Surgical History Past Surgical History: Procedure Laterality Date ANKLE SURGERY Left x2 ARTHROSCOPY SHOULDER WITH ROTATOR CUFF REPAIR Right 05/15/2022 Performed by Chepe Ingram MD at [facility] DEBRIDEMENT Right 05/15/2022 Performed by Chepe Ingram MD at [facility] DECOMPRESSION OF SUBACROMIAL SPACE WITH PARTIAL ACROMIOPLASTY Right 05/15/2022 Performed by Chepe Ingram MD at [facility] INJECTION BLOCK EPIDURAL STEROID LUMBAR/SACRAL: L 4/5 WU N/A 04/22/2021 Performed by Pete Silver MD at [facility] INJECTION BLOCK SACROILIAC JOINT Left 03/27/2023 Performed by Pete Silver MD at [facility] CERVICAL OR THORACIC EPIDURAL BLOCK WITH STEROIDS: C67 WU N/A 01/29/2018 Performed by Pete Silver MD at [facility] LUMBAR OR SACRAL EPIDURAL BLOCK WITH STEROIDS: L45 WU N/A 10/15/2018 Performed by Pete Silver MD at [facility] MEDIAL BRANCH NERVE BLOCK: bilat L45 51 Bilateral 07/30/2018 Performed by Pete Silver MD at [facility] SPINE TRANSFORAMINAL: left C 5,6 Nroot Left 01/09/2023 Performed by Pete Silver MD at [facility] LAPAROSCOPIC CHOLECYSTECTOMY N/A 09/16/2016 Performed by Juan Ramon Jean MD at [facility] LIVER BIOPSY EMA PROCEDURE Right 05/15/2022 Performed by Chepe Ingram MD at [facility] NASAL SURGERY REPAIR HERNIA UMBILICAL 09/16/2016 Performed by Juan Ramon Jean MD at [facility] TONSILLECTOMY Family History Family History Problem [...] 5 blood-glucose meter (TRUE METRIX GLUCOSE METER) [facility] use to test BLOOD SUGAR TWICE DAILY, [...] , Rfl: lancets (UNILET LANCET) 28 gauge [facility], Use to test BLOOD SUGAR TWICE DAILY, [...] on 04/28/2023), Disp: 30 tablet, Rfl: 0 uvhwitug-fble-DE-calcium &mins (THERAGRAN-M) 9 mg iron-400 mcg tablet, [...] a bilateral screening mammogram on 03/16/2023 through [facility]. Her breast tissue is almost entirely fatty. There was a 1 cm mass in the posterior upper-outer right breast 17 cm from the nipple. They thought this was likely a lymph node but recommended that she return for additional imaging. She had the imaging done in [place]. They did a right diagnostic mammogram and [...] with any concerns. documented in this encounter [facility] 05-12-2023 Miscellaneous Notes Spoke with patient and scheduled with Dr. Robledo 4/2. Patient voiced understanding of appointment details. Patient was offered sooner dates but declined per her availability. documented in this encounter [facility] 05-12-2023 Telephone encounter Note Spoke with patient and scheduled with Dr. Robledo 4/2. Patient voiced understanding of appointment details. Patient was offered sooner dates but declined per her availability. [facility] 04-30-2023 Miscellaneous Notes Last Office Visit: 04/28/2023 Next Office Visit: Visit date not found Last Urine Drug Screen: No results found for: BENZOSCRN OARRS appropriate documented in this encounter [facility] 04-30-2023 Telephone encounter Note Last Office Visit: 04/28/2023 Next Office Visit: Visit date not found Last Urine Drug Screen: No results found for: BENZOSCRN OARRS appropriate [facility] 04-28-2023 History of Presen t illness Narrative [facility] [address] [place] [address] Patient: Karma Banegas Sex: female : 1980 [...] spine (09/2022 last visit for 11/05/22) at [facility] with no relief Back: 10/15/18 [...] Anxiety Asthma Back pain Bipolar 1 disorder ([facility]) Breast disorder enlarged lymph nodes in both breast Carpal tunnel syndrome Chronic pain disorder Deep vein thrombosis ([facility]) blood clot in left arm Dental disease [...] night 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 ([facility]) 11/10/2017 Visual impairment Past Surgical History: Procedure Laterality Date ANKLE SURGERY Left x2 ARTHROSCOPY SHOULDER WITH ROTATOR CUFF REPAIR Right 05/15/2022 Performed by Chepe Ingram MD at [facility] DEBRIDEMENT Right 05/15/2022 Performed by Chepe Ingram MD at [facility] DECOMPRESSION OF SUBACROMIAL SPACE WITH PARTIAL ACROMIOPLASTY Right 05/15/2022 Performed by Chepe Ingram MD at [facility] INJECTION BLOCK EPIDURAL STEROID LUMBAR/SACRAL: L 4/5 WU N/A 04/22/2021 Performed by Pete Silver MD at [facility] INJECTION BLOCK SACROILIAC JOINT Left 03/27/2023 Performed by Pete Silver MD at [facility] CERVICAL OR THORACIC EPIDURAL BLOCK WITH STEROIDS: C67 WU N/A 01/29/2018 Performed by Pete Silver MD at [facility] INJECTION LUMBAR OR SACRAL EPIDURAL BLOCK WITH STEROIDS: L45 WU N/A 10/15/2018 Performed by Pete Silver MD at [facility] INJECTION MEDIAL BRANCH NERVE BLOCK: bilat L45 51 Bilateral 07/30/2018 Performed by Pete Silver MD at [facility] SPINE TRANSFORAMINAL: left C 5,6 Nroot Left 01/09/2023 Performed by Pete Silver MD at [facility] LAPAROSCOPIC CHOLECYSTECTOMY N/A 09/16/2016 Performed by Juan Ramon Jean MD at [facility] LIVER BIOPSY EMA PROCEDURE Right 05/15/2022 Performed by Chepe Ingram MD at [facility] NASAL SURGERY REPAIR HERNIA UMBILICAL 09/16/2016 Performed by Juan Ramon Jean MD at [facility] TONSILLECTOMY Allergies Allergen Reactions Metformin Severe [...] Hodge 04/30/23 1141 documented in this encounter [facility] [employer] 04-28-2023 Instructions Peg Conrad CNA - 04/28/2023 [...] nearest emergency room. documented in this encounter [facility] 04-20-2023 Hospital Discharg e instructions Precious Urbina APRN - CNP - 04/20/2023 1:50 PM EST Increase fluid Tylenol Motrin for cough Continue home medications The following attachments cannot be sent through Care Everywhere.Head Injury: Closed: General Info (Mosotho)Cervical Strain (Mosotho)documented in this encounter [facility] 03-31-2023 Miscellaneous Notes Patient calls [...] medications prescribed to someone other than her. Tool And Fixture Repairer reiterated this to patient. Patient's pharmacy was confirmed with her. Order pended for review and signature. documented in this encounter [facility] [employer] 03-31-2023 Telephone encounter Note Patient calls today [...] are [facility] than [facility] encounter Note Is she still taking prozac? What dosage? Any other antidepressants? [facility] Telephone encounter Note Call placed to patient to confirm whether or not she is taking Prozac or other antidepressants. Patient states she is taking 40 mg Prozac daily. That is the only antidepressant that she takes. She is prescribed Latuda and Lamictal to treat Bipolar. [facility] Telephone encounter Note Can try cymbalta 30mg once daily [facility] 03-31-2023 Telephone encounter Note Call placed to patient to inform her of provider's response. Patient is also educated not to take medications that are prescribed to someone other than her. Patient voices that she is aware that she should not be taking medications prescribed to someone other than her. Tool And Fixture Repairer reiterated this to patient. Patient's pharmacy was confirmed with her. Order pended for review and signature. [facility] 03-05-2023 Evaluation note Encounter Date Diagnosis [...] was counseling done by myself, Rhina ROBERTSON. [facility] [email or web address] Other 01-01-2024 Hospital Discharge instructions* Discharge Instructions* Sil Sullivan DO - 03/02/2023 7:49 PM EST Please follow-up with your GI doctor, trial enema at home, return to the ER for worsening abdominalpain, inability to pass gas, or nausea, vomiting * Attachments The following attachments cannot be sent through Care Everywhere. * Constipation (Mosotho) [facility] Miscellaneous Notes* Telephone Encounter - [...] when she was under his care in [place]. She is currently taking Meloxicam that helps [...] She states whatever . [facility] encounter Note* Telephone Encounter - Argenis [...] when she was under his care in [place]. She is currently taking Meloxicam that helps [...] add Dr. Silver on the note. [facility]. [facility]12-22-2023 Telephone encounter Note* Telephone Encounter - Pete Silver MD - 02/20/2023 10:04 AM EST Discussed with nurse, I agree with Fartun's treatment plan going forward. [facility]12-22-2023 Telephone encounter Note* Telephone Encounter - UMESH Hodge - 02/20/2023 10:04 AM EST No Rx for tramadol. I have never written prescription for bra so I would not know how to proceed with anything like that. [facility]12-22-2023 Telephone encounter Note* Telephone Encounter - Argenis Storm RN - 02/20/2023 10:04 AM EST Patient aware of response. She states whatever . [facility]12-20-2023 Evaluation note* Encounter Date Diagnosis Assessment Notes Treatment Notes Treatment Clinical Notes Jan, Constipation, unspecified constipation type (ICD-10 - K59.00) Jan, Constipation (ICD-10 - K59.00) [employer] Other 12-12-2023 Miscellaneous Notes* Telephone Encounter - [...] and has f/u appt [facility] encounter Note* Telephone Encounter - Margaux Olea CST - 02/10/2023 8:18 AM EST Received denial letter for an SI Inj. It is noted in prior requests, the member's chronic pain is related to discogenic causes with improvement in symptoms with shots directed the discogenic disorder. It is not noted why the source of the chronic pain is now related to sacroiliac joint. [facility]12-12-2023 Telephone encounter Note* Telephone Encounter - UMESH [...] sufficient reason to deny the current request. [facility]12-12-2023 Telephone encounter Note* Telephone Encounter - Alfredito William - 02/10/2023 8:18 AM EST GOT APPROVAL [facility]12-12-2023 Telephone encounter Note* Telephone Encounter - Maty Fulton RN - 02/10/2023 8:18 AM EST Pt is scheduled 03/27 for procedure and has f/u appt [facility]12-07-2023 Evaluation note* Encounter Date Diagnosis Assessment Notes [...] R10.9) Jan, Rectal bleed (ICD-10 - K62.5) [employer] Other 11-16-2023 Evaluation note* Encounter Date Diagnosis [...] was counseling done by myself, Rhina ROBERTSON. [employer] Other 11-08-2023 Evaluation note* Encounter Date Diagnosis [...] HAVE PATIENT START DOCUSATE 3 CAPSULES DAILY. [employer] Other 06-29-2023 Evaluation note* Encounter Date Diagnosis Assessment Notes Treatment Notes Treatment Clinical Notes Jul, Obesity (ICD-10 - E66.9) Jul, BMI 34.0-34.9,adult (ICD-10 - Z68.34) Jul, Other Summary of Visi t: (A) discussed continuing to work on small goals until stress decreases and she has the energy to increase goals (B) discussed healhtier choices at [employer]- food blog reviewed (C) reviewed food storage tips for keeping produce fresh longer Patient set the following goals: - NEW: continue to choose sugar free beverages- not reviewed [employer] Other 05-30-2023 Evaluation note* Encounter Date Diagnosis [...] was counseling done by myself, Rhina ROBERTSON. [employer] Other 03-21-2023 Evaluation note* Encounter Date Diagnosis [...] was counseling done by myself, Rhina ROBERTSON. [employer] Other 02-07-2023 Evaluation note* Encounter Date Diagnosis [...] set the following goals: not reviewed today [employer] Other 02-07-2023 Evaluation note* Encounter Date Diagnosis [...] was counseling done by myself, Rhina ROBERTSON. [employer] Other 12-28-2022 Evaluation note* Encounter Date Diagnosis [...] patient set personal goal using given handout. [employer] Other 12-27-2022 Evaluation note* Encounter Date Diagnosis [...] was counseling done by myself, Rhina ROBERTSON. [employer] Other 12-01-2022 NotePROCEDURE: XR ANKLE LT MIN [...] Electronically authenticated by: ONEL CLARK Date: 2022-01-29 22:30[facility]12-01-2022 NotePROCEDURE: XR ANKLE LT MIN [...] Electronically authenticated by: ONEL CLARK Date: 2022-01-29 22:30[facility]11-15-2022 Evaluation note* Encounter Date Diagnosis [...] was counseling done by myself, Rhina ROBERTSON. [employer] Other 10-05-2022 Evaluation note* Encounter Date Diagnosis [...] was counseling done by myself, Rhina ROBERTSON. [employer] Other 08-30-2022 Evaluation note* Encounter Date Diagnosis Assessment Notes Treatment Notes Treatment Clinical Notes Sep, Fatty liver (ICD-10 - K76.0) ENCOURAGED WEIGHT LOSS Sep, Obesity (BMI 30-39.9) (ICD-10 - E66.9) [facility] [employer] Other 08-23-2022 Hospital Discharge instructions* Discharge Instructions* Stanley Almonte PA-C - 10/22/2021 2:03 PM EDT Follow-up with primary care doctor 7 to 10 days for reevaluation. Take Motrin 800 mg as directed with food. Start eardrops left ear as directed. Promptly return to emergency department for new, changing or worsening of symptoms or other concerns. [facility] [employer] Phone: evaluation + Plan note No data available for this section [facility]* Diagnosis Pilonidal cyst- Primary Pilonidal cyst without mention of abscess documented in this encounter [facility] [employer] Phone: [email or web address] note* Diagnosis Acute diffuse otitis externa of left ear- Primary documented in this encounter [facility] [employer] Phone: evalygtoti noteNo InformationNortGood [facility] [employer] Other Evaluprvfi note* Diagnosis Constipation, unspecified constipation type- Primary documented in this encounter [facility] [employer] noteNo assessment information [facility] Work Phone: Evaluation note* Diagnosis Closed head injury, initial encounter- Primary Fall due to slipping on ice or snow, initial encounter Acute cervical myofascial strain, initial encounter documented in this encounter [facility] [employer] note* Diagnosis Lumbosacral spondylosis without myelopathy- Primary [facility] Diagnosis Mass of upper outer quadrant of right breast- Primary Abnormal mammogram Abnormal mammogram, unspecified Symptomatic mammary hypertrophy [facility]* Diagnosis Onset Date Resolution Status ADHD acute BMI 36.0-36.9,adult acute Constipation acute Diabetes mellitus with hyperglycemia acute Fatty liver acute IBS (irritable bowel syndrome) acute Obesity acute Shifting sleep-work schedule, affecting sleep acute Constipation acute Elevated liver function tests acute Fatty liver acute IBS (irritable bowel syndrome) acute [facility] Work Phone: Evaluation note* Diagnosis Dizziness- Primary Dizziness and giddiness [facility] Diagnosis Macromastia- Primary Hypertrophy of breast [facility] Narrative - Reported* Type Description Date Medical History PTSD Medical History DIVERTICULITOUS Surgical History 2 BACK INJECTIONS 2014 Surgical History LEFT ANKLE 2002 Surgical History CHOLECYSTECTOMY Hospitalization History SEE ABOVE [employer] Other His[facility] general Narrative - Reported* Type Description Date Medical History PTSD Medical History DIVERTICULITOUS Medical History bipolar Medical History ADHD Surgical History 2 BACK INJECTIONS 2014 Surgical History LEFT ANKLE 2002 Surgical History CHOLECYSTECTOMY Surgical History nasal surgery Hospitalization History SEE ABOVE [employer] Other Hisfyhm general Narrative - Reported* Type Description Date Medical History PTSD Medical History DIVERTICULITOUS Medical History bipolar Medical History ADHD Surgical History 2 BACK INJECTIONS 2014 Surgical History LEFT ANKLE 2002 Surgical History CHOLECYSTECTOMY Surgical History nasal surgery Surgical History right Rotator surgery 05-15-22 Hospitalization History SEE ABOVE [employer] Other Hiszndy general Narrative - Reported* Type Description Date Medical History PTSD Medical History DIVERTICULITOUS Medical History bipolar Medical History ADHD Medical History rotator cuff tear Surgical History 2 BACK INJECTIONS 2014 Surgical History LEFT ANKLE 2001 Surgical History CHOLECYSTECTOMY Surgical History nasal surgery Surgical History right Rotator surgery 05-15-22 Hospitalization History SEE ABOVE [employer] Other Hisptrg general Narrative - Reported* Type Description Date Medical History PTSD Medical History DIVERTICULITOUS Medical History bipolar Medical History ADHD Medical History rotator cuff tear Surgical History 2 BACK INJECTIONS 2014 Surgical History LEFT ANKLE 2002 Surgical History CHOLECYSTECTOMY Surgical History nasal surgery Surgical History right Rotator surgery 05-15-22 Surgical History Neck injections/root burnt 12/31 Hospitalization History SEE ABOVE [employer] Other Hisjjhw general Narrative - Reported* Type Description Date Medical History PTSD Medical History DIVERTICULITOUS Medical History bipolar Medical History ADHD Medical History rotator cuff tear Surgical History 2 BACK INJECTIONS 2014 Surgical History LEFT ANKLE 2001 Surgical History CHOLECYSTECTOMY Surgical History nasal surgery Surgical History right Rotator surgery 05-15-22 Surgical History Neck injections/root burnt 12/31 Hospitalization History SEE ABOVE Hospitalization History [facility] Marjorie- terrell onstipation 03-02-2023 [employer] Other Hospital Discharge instructions* Attachments The following attachments cannot be sent through Care Everywhere. * Pilonidal Abscess (Mosotho) documented in this encounterB[facility] [employer] Work Phone: Hospital Discharge instructions No data available for this section [facility] CenterInstructionsNot on filedocumented in this encounter [facility]Not on filedocumented in this encounter [facility] [employer] SystemInstructionsNot on filedocumented in this encounter [facility] SystemInstructionsNot on filedocumented in this encounter [facility] SystemInstructionsNot on filedocumented in this encounter [facility] SystemInstructionsNot on filedocumented in this encounter [facility] SystemProgress note No data available for this section [facility] CenterReason for visit Narrative* Consultation (Routine) - Pending Review Specialty Diagnoses / Procedures Referred By Karla cuadra Referred To Contact Breast Surgery Diagnoses Abnormal mammogram Carmen Fisher MD [address] [place] [id number] Ila Trevizo MD [address] [place] [phone] Referral ID Status Reason Start Date Expiration Date V isits Requested Visits Authorized [id number] Pending Review 05/06/2023 05/05/2024 1 1 [facility] Summary Purpose Family History No Family History [...] Time Advance Directives No July 18 9:24am Date Activated Date Inactivated Comments 09/16/2016 3:19 PM 09/17/2016 8:38 PM Reason [...] 51 Gaurav Sellers, PA [address], [address] [place] [address] Referral ID Status Reason Start Date Expiration Date V isits Requested Visits Authorized [id number] Pending Review 04/28/2023 04/27/2024 1 1 Chief [...] AUTHOR AUTHOR'S ORGANIZ ATION 01/18/2023 [facility] DATE CREATED AUTHOR AUTHOR'S ORGANIZ ATION 06/04/2023 [facility] DATE CREATED AUTHOR AUTHOR'S ORGANIZ ATION 08/03/2023 [facility] DATE CREATED AUTHOR AUTHOR'S ORGANIZ ATION 10/10/2023 [facility] DATE CREATED AUTHOR AUTHOR'S ORGANIZ ATION 11/30/2023 [facility] DATE CREATED AUTHOR AUTHOR'S ORGANIZ ATION 12/22/2023 [facility] DATE CREATED AUTHOR AUTHOR'S ORGANIZ ATION 02/01/2024 [facility] DATE CREATED AUTHOR AUTHOR'S ORGANIZ ATION 02/05/2024 [facility] Reason for Visit (unrecogniz ed section [...] Reason Onset Date Comments Med Refill 04/30/2023 Reason Comments Dizziness Pt reports I just f eel out of it, like dizzy. If anything I want to drive back to the house and go to sleep , starting today. Pt reports several significant stressors occurring today (Office visit at urology today for passed kidney stone, my one kid didn't take his meds so that's a lot, Im trying to get someone to get these kids picked up . Pt irritated with kids in triage. Reason Comments New Patient Ordered Prescriptions (unrec ognized section and content) Prescription Sig Dispensed Refills Start Date End Da te clindamycin (CLEOCIN) 150 MG capsule Take 3 capsules by mouth in the morning and 3 capsules at noon and 3 capsules before bedtime. Do all this for 10 days. 90 capsule 0 10/12/2021 10/22/2021 Prescription Sig Dispensed Refills Start Date End Da te niwyvqik-cznuufbre-frmtab ortisone (CORTISPORIN) 3.5-91722-[address] 4 drops into the [...] (Given - Provid er: Ericka Weller RN) Scheduled Medication Order 01/11/2024 01/12/2024 01/13/2024 sodium chloride 0.9 % bolus 1,000 mL (COMPLETED) 1,000 mL (10.4 mL/kg), IntraVENous, at 983.6 mL/hr, Administer over 61 Minutes, ONCE, On 11/13/24 at 1530, For 1 dose, For adult patients weighing > 55 kg (120 lbs.) and less than <50 years of age initiate 0.9NS at 500 mL/ hr. All bolus orders are to be given over 10 to 15 minutes 1532 (New Bag - Prov ider: Ranjana Hyde, ZEYNEP)[id number] (Stopped - Provider: Ranjana Hyde RN) Care Teams (unrecognized sec tion and content) Maintenance Data Analyst Relationship Specialty Start Date End Date Shawna Mcfadden DO [address] [place] [place] [address] PCP - General Family Medicine 10/12/21 Maintenance Data Analyst Relationship Specialty Start Date End Date Shawna Mcfadden DO [address] [place] [address] PCP - General Family Medicine 10/12/21 Maintenance Data Analyst Relationship Specialty Start Date End Date Shawna Mcfadden DO [address] [place] [address] PCP - General Family Medicine 10/12/21 Maintenance Data Analyst Relationship Specialty Start Date End Date Shawna Mcfadden DO [address] [place] [address] PCP - General Family Medicine 05/02/22 Maintenance Data Analyst Relationship Specialty Start Date End Date Shawna Mcfadden DO [address] [place] [address] PCP - General Family Medicine 10/12/21 Maintenance Data Analyst Relationship Specialty Start Date End Date Shawna Mcfadden DO [address] [place] [address] PCP - General Family Medicine 05/02/22 Team [...] Care Provider Active Start: March 18, 2023 Maintenance Data Analyst Relationship Specialty Start Date End Date Shawna Mcfadden DO [address] [place] [address] PCP - General Family Medicine 05/02/22 Maintenance Data Analyst Relationship Specialty Start Date End Date Shawna Mcfadden DO [address] [place] [address] PCP - General Family Medicine 10/12/21 Maintenance Data Analyst Relationship Specialty Start Date End Date Shawna Mcfadden DO [address] [place] [address] PCP - General Family Medicine 05/02/22 Maintenance Data Analyst Relationship Specialty Start Date End Date Shawna Mcfadden DO [address] [place] [address] PCP - General Family Medicine 10/12/21 Maintenance Data Analyst Relationship Specialty Start Date End Date hSawna Mcfadden DO [address] [place] [address] PCP - General Family Medicine 05/02/22 Maintenance Data Analyst Relationship Specialty Start Date End Date Shawna Mcfadden DO [address] [place] [address] PCP - General Family Medicine 05/02/22 Team Status: Active Member Role Status Dates KIRAN ContrersaP-BC Primary Care Provider Active Team Status: Inactive Member Role Status Dates Gayathri Adams APRN Attending Provider Active Start: May 21, 2023 End: May 21, 2023 Rory Driver [facility] Primary Care Provider Active Start: May 21, 2023 End: May 21, 2023 Team Status: Inactive Member Role Status Dates Jan Garg APRN Attending Provider Active Start: May 21, 2023 End: May 21, 2023 Rory Driver [facility] Primary Care Provider Active Start: May 21, 2023 End: May 21, 2023 Maintenance Data Analyst Relationship Specialty Start Date End Date Shawna Mcfadden DO [address] [place], [place] [id number] PCP - General Family Medicine 10/12/21 Maintenance Data Analyst Relationship Specialty Start Date End Date Shawna Mcfadden DO [address] [place] [address] PCP - General Family Medicine 10/12/21 Maintenance Data Analyst Relationship Specialty Start Date End Date Loreto Mcneal APRN - JO ANN [address] [place] [address] PCP - General 11/11/23 Maintenance Data Analyst Relationship Specialty Start Date End Date Loreto Mcneal APRN - CAPACITY PLANNING ENGINEER [address] [place] [address] PCP - General 11/11/23 Maintenance Data Analyst Relationship Specialty Start Date End Date Loreto Mcneal APRN - NP [address] [place] [address] PCP - General 11/11/23 Maintenance Data Analyst Relationship Specialty Start Date End Date [facility] [address] [place] PCP - General Family Medicine 10/05/23 Maintenance Data Analyst Relationship Specialty Start Date End Date Fredis LoretoCONECTTA majano NP [address] [facility] [place] [address] PCP - General 11/11/23 Goals (unrecognized section [...] BE BASED ON THE PRIMARY CLINICAL RECORDS. [facility] [employer] provides no warranty or guarantee of the accuracy or completeness of information in this document.
--- NOTE | 2024-02-11 10:01 | PM.CN ---
Consult Note: HPI Data of Consult Patient: known to practice within the last 3 years Consult date: 11/16/23 Requesting Physician: Nancy Lipscomb NP Primary Care Provider: Loreto Mcneal NP Consult Narrative Reason for consult: low back, left leg pain Narrative: [id number] who presents for evaluation. worsening low back pain with radiation into left lower extremity. engages in biweekly chiropractic therapy >6 weeks, without lasting benefit. has engaged in >6 weeks of provider directed home exercises, without lasting benefit. most recent advanced imaging was >2 years ago. has had previous lumbar esis, with good benefit. has used flexeril, tizanidine, mobic, voltaren, tramadol, norco. denies adverse med side effects. recently underwent lumbar MRI with results below. recent bilateral L5-S1 TFESI providing moderate relief, and bilateral SIJ injection with moderate relieg. cc:: CC: Nancy Lipscomb NP Review of Systems ROS Status of ROS 10 or more systems reviewed and unremarkable except as noted in history and below Musculoskeletal Reports: back pain, neck pain and joint pain; Denies: extremity pain PFSH PFSH Social History Little interest or pleasure in doing things: not at all Feeling down, depressed, or hopeless: not at all Meds Home Medications and Allergies Home Medications ?Medication ?Instructions ?Recorded ?Confirmed ?Type Bifidobacterium infantis 4 mg 4 mg PO DAILY 10/24/23 02/01/24 History capsule (Align) ascorbic acid (vitamin C) 500 mg 500 mg PO BID 10/24/23 02/01/24 History tablet (Vitamin C) cholecalciferol (vitamin D3) 50 50 mcg PO DAILY 10/24/23 02/01/24 History mcg (2,000 unit) capsule ciclopirox 0.77 % topical cream 1 applic topical Q12H 10/24/23 02/01/24 History duloxetine 60 mg capsule,delayed 60 mg PO DAILY 10/24/23 02/01/24 History release empagliflozin 25 mg tablet 25 mg PO DAILY 10/24/23 02/01/24 History (Jardiance) famotidine 40 mg tablet 40 mg PO DAILY 10/24/23 02/01/24 History fluoxetine 60 mg tablet 60 mg PO DAILY 10/24/23 02/01/24 History gabapentin 300 mg capsule 300 mg PO Q8H 10/24/23 02/01/24 History lamotrigine 200 mg tablet 200 mg PO DAILY 10/24/23 02/01/24 History liraglutide 0.6 mg/0.1 mL (18 mg/3 0.6 mg subcut Q24H 10/24/23 02/01/24 History mL) subcutaneous pen injector (Victoza 3-Ramon) lisdexamfetamine 20 mg capsule 70 mg PO DAILY 10/24/23 02/01/24 History (Vyvanse) lurasidone 120 mg tablet 120 mg PO DAILY 10/24/23 02/01/24 History multivitamin with folic acid 400 1 tab PO DAILY 10/24/23 02/01/24 History mcg tablet (Daily-Karely (with folic acid)) pioglitazone 30 mg tablet 30 mg PO DAILY 10/24/23 02/01/24 History rosuvastatin 10 mg tablet 10 mg PO DAILY 10/24/23 02/01/24 History sumatriptan succinate 100 mg tablet 100 mg PO PRN migraine headache 10/24/23 History trazodone 50 mg tablet 50 mg PO DAILY 10/24/23 02/01/24 History vitamin B complex 1 tab PO Q24H 10/24/23 02/01/24 History albuterol sulfate 0.63 mg/3 mL 0.63 mg inhalation TID PRN 11/16/23 02/01/24 History solution for nebulization bronchospasm albuterol sulfate 90 mcg/actuation 2 inh inhalation QID PRN shortness 11/16/23 02/01/24 History aerosol inhaler (Proventil HFA) of breath or wheezing biotin injectioin .every other week 11/16/23 History cyclobenzaprine 10 mg tablet 10 mg PO TID PRN muscle spasm #90 11/16/23 02/01/24 Rx tabs diclofenac sodium 75 mg 75 mg PO BID PRN pain #60 tabs 11/16/23 02/01/24 Rx tablet,delayed release fluticasone propionate 50 1 spray intranasal DAILY PRN 11/16/23 02/01/24 History mcg/actuation nasal allergy symptoms spray,suspension (24 Hour Allergy Relief) invizia 11/16/23 History mupirocin 2 % topical ointment topical 11/16/23 History nystatin 100,000 unit/gram topical topical 11/16/23 History cream rizatriptan 10 mg tablet (Maxalt) See Rx Instructions PO .COMPLEX 11/16/23 02/01/24 History tramadol 50 mg tablet 50 mg PO 11/16/23 History ferrous sulfate 325 mg (65 mg 325 mg PO DAILY 01/08/24 02/01/24 History iron) tablet (FeroSul) ketorolac 10 mg tablet 10 mg PO Q8H PRN pain 5 days #15 01/09/24 02/01/24 Rx tabs docusate sodium 100 mg capsule 300 mg PO DAILY 01/11/24 02/01/24 History linaclotide 290 mcg capsule 290 mcg PO DAILY 01/11/24 02/01/24 History (Linzess) gabapentin 300 mg capsule 600 mg (2 x 300 mg) PO TID #180 02/01/24 Rx caps Allergies Allergy/AdvReac Type Severity Reaction Status Date / Time cephalexin (From Keflex) Allergy Intermediate Rash Verified 02/01/24 08:38 citalopram (From Celexa) Allergy Intermediate Rash Verified 02/01/24 08:38 metformin Allergy Intermediate Nausea Verified 02/01/24 08:38 Exam Constitutional Documenting provider has reviewed patient's vital signs: yes Common normals: no apparent distress, oriented x3, healthy appearing, alert and well nourished General appearance: cooperative [facility] Common normals: normocephalic, hearing grossly normal bilaterally and moist oral mucous membranes Head and scalp: normocephalic Eye Common normals: PERRL Pupil: PERRL Neck & C-Spine Common normals: full ROM General: normal visual inspection Chest Common normals: inspection of chest normal Respiratory Common normals: normal respiratory effort, no retractions and no use of accessory muscles Back & Pelvis Lumbar spine/lower back: ROM limited, pain with ROM, lumbar spinal tenderness and straight leg raise negative bilaterally; no paraspinal muscle tenderness and no paraspinal muscle spasm Sacroiliac joints: SI joints normal Other: positive facet loading bilateral sij negative anil(patricks), gaenslens, thigh thrust, compression test sensation intact BLE strength 5/5 in BLE Neuro Common normals: oriented x3, CN's II-XII intact bilaterally, moves all extremities, no focal motor deficits, no sensory deficits noted and deep tendon reflexes 2+ bilaterally Sensorium/orientation: alert Motor exam: strength 5/5 throughout and no movement abnormalities noted Psych Common normals: mental status grossly normal, thought process normal, cooperative, affect normal, speech normal and activity/motor behavior normal Speech: normal speech Thought process: normal thought process Results Additional Findings Additional findings: If on a controlled substance or opioids, I have checked an [place] report on this patient and there are no aberrancies noted in the prescribing history.??If on a controlled substance or opioid a drug screen was completed and reviewed within the last year, and if there has not been a drug screen completed we ordered one today to monitor higher risk, state monitored pain medication use. As part of providing excellent, safe, comprehensive care, the following was completed at our patient's visit: 1. A medication reconciliation and review to ensure accurate knowledge of current/active medications, including asking our patients to inform us about any [id number] medications or herbal remedies/nutritional supplements/alternative remedies. 2. A review to specifically ensure our patients have had annual screening for screening for depression, screening for tobacco use, and screening for unhealthy alcohol use. For concerning screenings had a discussion with the patient, provided patient education, and recommended follow-up with primary care provider when appropriate. If patient noted with a risk of falling, they received education on strength, gait, and balance training to prevent future risk of falling. Assessment and Plan Assessment and Plan (1) Sacroiliac joint dysfunction: (2) Lumbar stenosis with neurogenic claudication: (3) Lumbar spondylosis: Plan continue flexeril 10-20mg BID PRN pain/spasms continue PT and HEP as tolerated continue medications through PCP f/u 3 months for low back pt would like to work up cervical pain, will need to schedule a separate appointment to address.
== END 2024-02-11 09:28 | disposition home or self-care (01) ==
LOC: PM 09:27
PROVIDERS: PCP Nurse Practitioner Family; Visit Provider Nurse Practitioner
DX: M53.3 Sacrococcygeal disorders, not elsewhere classified (principal); M48.062 Spinal stenosis, lumbar region with neurogenic claudication; M47.816 Spondylosis without myelopathy or radiculopathy, lumbar region
CPT/HCPCS: G0463

== ENCOUNTER 2024-02-11 11:37 | Outpatient (OUT) | payer OTHER, SELFPAY ==
--- OUTSIDE RECORDS SUMMARY | 2024-02-11 11:44 | XMS_ITS | CCD ---
Author Organization [facility] Care Team Providers Care Software Build Engineer Name Role Phone Juan Ramon Jean Unavailable [...] Garg Unavailable DOMENICA OLIVA Primary Care Physician [phone] HILARY GRANADO Referring Unavailable HILARY GRANADO Attending [...] able RUMSCHLAG, SHAWNA K Referring Unavailable SERVICES, [facility] Care Unava ilable Fredis SILVESTREN - BLOWN FILM EXTRUSION OPERATOR, [facility] ider LULY ENGLISH Attending Unavailable GABY JUNE Attending Unavailable ALICIA PRESTON Attending Unavailable LAILA LIEBERMAN Attending Unavailable CINDYMOAMENA Sesay Attending Unavailable SERVICES, [facility] Primary Care Unava ilable SHAMMO, RORY Referring Unavailable RUMSCHLAG, SHAWNA K Primary Care Unavailable SHAMMO, RORY Referring Unavailable RUMSCHLAG, SHAWNA K Primary Care Unavailable PETE SILVER Attending Unavailable PETE SILVER Referring Unavailable RUMSCHLAG, SHAWNA K Primary Care Unavailable PETE SILVER Admitting Unavailable PETE SILVER Attending Unavailable RUMSCHLAG, SHAWNA K Referring Unavailable RUMSCHLAG, SHAWNA K Primary Care Unavailable JORGE, CARMEN Referring Unavailable SERVICES, [facility] Primary Care Unava ilable GAURAV SELLERS Attending Unavailable RUMSCHLAG, SHAWNA K Referring Unavailable RUMSCHLAG, SHAWNA K Primary Care Unavailable Services, [facility] Primary Care Provider RUMSCHLAG, SHAWNA Primary Care [...] (antibiotic) (2 sources) Cephalexin Drug Allergy 7 [facility] Serotonin Reuptake Inhibitors (SSRIs) (2 sources) Citalopram Drug Allergy 7 [facility] (20 sources) cephalexin; Translations: [Keflex] Drug Allergy 3 [facility] Repository (4 sources) citalopram; Translations: [CeleXA] Drug Allergy 3 AOF, heart palpitation [facility] Repository (20 sources) Cephalexin; Translations: [CEPHALEXIN] Drug Allergy 7 [facility] Work Phone: (20 sources) Citalopram; Translations: [CITALOPRAM] Drug Allergy 7 Hives, anaphylaxis [facility] (5 sources) metFORMIN Drug Allergy Unknown [facility] Other (20 sources) metFORMIN; Translations: [METFORMIN] Drug Allergy 3 Unknown, Unknown Reaction [employer] (11 sources) POISON DEVORAH EXTRACT; Translations: [POISON DEVORAH EXTRACT] Drug Allergy 3 [employer] (12 sources) Metformin And Related Propensity to adverse reactions to drug 4 Other (See Comments) [facility] (1 source) Cephalexin Drug Allergy 4 [facility] Repository (1 source) Citalopram Drug Allergy 4 [facility] Repository (1 source) metFORMIN Drug Allergy 4 [facility] Repository Medications Current Medications Medication Drug Class(es) Dates Sig (Normalized) Sig (Original) [id number] 200 actuat albuterol 0.09 mg/actuat metered dose [...] Orally Once a day Active bifidobacterium animalis [id number] unt / lactobacillus acidophilus [id number] unt oral capsule (4 sources) take 1 [...] 06-17-2018 blood-glucose meter (TRUE METRIX GLUCOSE METER) [facility] use to test BLOOD SUGAR TWICE DAILY 1 each 06/17/2018 Active Start: 06-17-2018 blood-glucose meter (TRUE METRIX GLUCOSE METER) [facility] use to test BLOOD [...] 04/09/2021 Active take 1 capsule by mo [facility] every twenty-four hours Vitamin D3 50 MCG [...] 3 04/30/2023 Active take 1 capsule by [facility] once daily DULoxetine (CYMBALTA) [...] 12:00am Start: 10-14-2018 take 1 tablet by [facility] twice daily famotidine (PEPCID) 20 mg tablet TAKE 1 TABLET BY MOUTH TWICE DAILY 60 tablet 5 04/09/2020 Active take 2 tablets by [facility] once daily famotidine (PEPCID) 20 MG tablet Take 2 tablets by mouth daily Active take 1 tablet by [facility] every twenty-four hours Pepcid 40 MG 1 [...] 1 tablet by mouth in the mo [facility] fexofenadine (ROS) 60 mg tablet Take 1 [...] / neomycin 3.5 mg/ml / polymyxin b 27308 unt/ml otic solution (1 source) Aminoglycoside Antibacterial, Polymyxin-class Antibacterial, Corticosteroid Start: 10-22-2021 End: 10-29-2021 lgxidaiy-mrwrwojhj-mxwywnpry isone (CORTISPORIN) 3.5-10875-[address] 4 drops into the [...] BY MOUTH NIGHTLY 30 tablet 07/16/2020 Active cuzxocyj-mtvc-NG-ca lcium &mins (THERAGRAN-M) 9 mg iron-400 mcg tablet (8 sources) iamzbswc-yzjg-SN -c alcium &mins (THERAGRAN-M) 9 mg iron-400 mcg tablet Take 1 tablet by mouth in the morning. Active gqcxkvmu-brhh-GV -calcium &mins (THERAGRAN-M) 9 mg iron-400 mcg [...] 30 days Jan, Active polyethylene glycol 3350 875648 mg / potassium chloride 2970 mg / sodium bicarbonate 6740 mg / sodium chloride 5860 mg / sodium sulfate 49951 mg powder for oral solution (2 sources) [...] Nausea, # 20 tab(s), Refills(s) 0, Pharmacy: [facility], 157, cm, 03/10/19 12:21:00 EST, Height/Length [...] Status: Ordered take 2 tablets by mo [facility] every six hours as needed tiZANidine (ZANAFLEX) 4 MG tablet Take 2 tablets by mouth every 6 hours as needed Active take 2 tablets by mo [facility] every twenty-four hours tiZANidine HCl 4 MG 2 tablet Orally daily Active take 1 tablet by [facility] every twelve hours tiZANidine HCl 4 MG [...] May 21, 2023 11:36am polyethylene glycol 3350 82508 mg powder for oral solution (7 sources) [...] Differentialon 01-13-2024 Basophils (Bld) [#/Vol] 0.06 10*3/uL [facility] Basophils/100 WBC (Bld) 0 % 0 - 2 % [facility] Eosinophils (Bld) [#/Vol] 0.10 10*3/uL [facility] Eosinophils/100 WBC (Bld) 1 % 1 - 4 % [facility] Erythrocyte distribution width (RBC) [Ratio] 13.6 % 11.8 - 14.4 % [facility] Hematocrit (Bld) [Volume fraction] 43.3 % 36.3 - 47.1 % [facility] Hemoglobin (Bld) [Mass/Vol] 14.0 g/dL 11.9 - 15.1 g/dL [facility] Immature granulocytes (Bld) [#/Vol] 0.10 10*3/uL [facility] Immature granulocytes/100 WBC (Bld) 1 % High 0 [facility] Interpretation and review of laboratory results Abnormal [facility] Lymphocytes/100 WBC (Bld) 22 % Low 24 - 43 % [facility] Lymphocytes/100 WBC (Bld) 2.98 % [facility] MCH (RBC) [Entitic mass] 28.5 pg 25.2 - 33.5 pg [facility] MCHC (RBC) [Mass/Vol] 32.3 g/dL 28.4 - 34.8 g/dL [facility] MCV (RBC) [Entitic vol] 88.2 fL 82.6 - 102.9 fL [facility] Monocytes/100 WBC (Bld) 8 % 3 - 12 % [facility] Monocytes/100 WBC (Bld) 1.12 % [facility] Neutrophils/100 WBC (Bld) 68 % High 36 - 65 % [facility] Nucleated RBC/100 WBC (Bld) [Ratio] 0.0 % 0.0 per 100 WBC [facility] Platelet mean volume (Bld) [Entitic vol] 10.0 fL 8.1 - 13.5 fL [facility] Platelets (Bld) [#/Vol] 452 10*3/uL [facility] RBC (Bld) [#/Vol] 4.91 10*6/uL 3.95 - 5.11 m/uL [facility] Segmented neutrophils/100 WBC (Bld) 9.08 % High [facility] WBC other (Bld) [#/Vol] 13.4 High [facility] CBC with Diffon 01-13-2024 Abs. Basophil 0.06 k/uL Normal 0.00-0.20 [facility] Comment on above: Performed By: #### C DP, CP #### [facility] [address] [place] [address] Molder Helper: Domenica Velázquez MD Abs.Imm.Granulocyte 0.10 k/uL Normal 0.00-0.30 [facility] Comment on above: Performed By: #### C DP, CP #### [facility] [address] [place] [address] [address] [place], [place] [address] Molder Helper: Domenica Velázquez MD Abs.Neutrophil (Seg) 9.08 k/uL High 1.50-8.10 [facility] Comment on above: Performed By: #### C DP, CP #### [address] [place], [place] [address] Molder Helper: Domenica Velázquez MD Basophils/100 WBC (Bld) 0 % Normal 0-2 [facility] Comment on above: Performed By: #### C DP, CP #### [address] [place], [place] [address] Molder Helper: Domenica Velázquez MD Eosinophils (Bld) [#/Vol] 0.10 10*3/uL Normal 0.00-0.44 [facility] Comment on above: Performed By: #### C DP, CP #### [address] [place], [facility] Molder Helper: Domenica Velázquez MD Eosinophils/100 WBC (Bld) 1 % Normal 1-4 [facility] Comment on above: Performed By: #### C DP, CP #### [address] [place], [place] [address] Molder Helper: Domenica Velázquez MD Erythrocyte distribution width (RBC) [Ratio] 13.6 % Normal 11.8-14.4 [facility] Comment on above: Performed By: #### C DP, CP #### [address] [place], [facility]83 Molder Helper: Domenica Velázquez MD Hematocrit (Bld) [Volume fraction] 43.3 % Normal 36.3-47.1 [facility] Comment on above: Performed By: #### C DP, CP #### [facility] [address] [place], [place] [id number] Molder Helper: Domenica Velázquez MD Hemoglobin (Bld) [Mass/Vol] 14.0 g/dL Normal 11.9-15.1 [facility] Comment on above: Performed By: #### C DP, CP #### [facility] [address] [place], [place] [id number] Molder Helper: Domenica Velázquez MD Immature granulocytes/100 WBC (Bld) 1 % High 0 [facility] Comment on above: Performed By: #### C DP, CP #### [facility] [address] [place], [place] [id number] Molder Helper: Domenica Velázquez MD Lymphocytes (Bld) [#/Vol] 2.98 10*3/uL Normal 1.10-3.70 [facility] Comment on above: Performed By: #### C DP, CP #### [facility] [address] [place] [address] [place], [place] [id number] Molder Helper: Domenica Velázquez MD Lymphocytes/100 WBC (Bld) 22 % Low 24-43 [facility] Comment on above: Performed By: #### C DP, CP #### [address] [place], [place] [id number] Molder Helper: Domenica Velázquez MD MCH (RBC) [Entitic mass] 28.5 pg Normal 25.2-33.5 [facility] Comment on above: Performed By: #### C DP, CP #### [facility] [address] [place], [place] [id number] Molder Helper: Domenica Velázquez MD MCHC (RBC) [Mass/Vol] 32.3 g/dL Normal 28.4-34.8 [facility] Comment on above: Performed By: #### C DP, CP #### [facility] [address] [place] [address] Molder Helper: Domenica Velázquez MD MCV (RBC) [Entitic vol] 88.2 fL Normal 82.6-102.9 [facility] Comment on above: Performed By: #### C DP, CP #### [facility] [address] [place], [place] [id number] Molder Helper: Domenica Velázquez MD Monocytes (Bld) [#/Vol] 1.12 10*3/uL Normal 0.10-1.20 [facility] Comment on above: Performed By: #### C DP, CP #### [address] [place] [address] Molder Helper: Domenica Velázquez MD Monocytes/100 WBC (Bld) 8 % Normal 3-12 [facility] Comment on above: Performed By: #### C DP, CP #### [address] [place], [place] [address] Molder Helper: Domenica Velázquez MD Neutrophil (Seg) 68 % High 36-65 [facility] Comment on above: Performed By: #### C DP, CP #### [address] [place], [place] [id number] Molder Helper: Domenica Velázquez MD NRBC Automated 0.0 per 100 WBC Normal 0.0 [facility] Comment on above: Performed By: #### C DP, CP #### [address] [place], [facility]83 Molder Helper: Domenica Velázquez MD Platelet mean volume (Bld) [Entitic vol] 10.0 fL Normal 8.1-13.5 [facility] Comment on above: Performed By: #### C DP, CP #### [address] [place] [address] Molder Helper: Domenica Velázquez MD Platelets (Bld) [#/Vol] 452 10*3/uL Normal 138-453 [facility] Comment on above: Performed By: #### C DP, CP #### [facility] [address] [place] [address] Molder Helper: Domenica Velázquez MD RBC (Bld) [#/Vol] 4.91 10*6/uL Normal 3.95-5.11 [facility] Comment on above: Performed By: #### C DP, CP #### [facility] [address] [place] [address] Molder Helper: Domenica Velázquez MD WBC (Bld) [#/Vol] 13.4 10*3/uL High 3.5-11.3 [facility] Comment on above: Performed By: #### C MANUELA, CP #### [facility] [address] [place] [address] Molder Helper: Domenica Velázquez MD [facility] 01-13-2024 Albumin [Mass/Vol] 4.4 g/dL 3.5 - 5.2 g/dL [facility] Albumin/Globulin [Mass ratio] 1.3 {ratio} 1.0 - 2.5 [facility] ALP [Catalytic activity/Vol] 87 U/L 35 - 104 U/L [facility] ALT [Catalytic activity/Vol] 25 U/L 10 - 35 U/L [facility] Anion gap [Moles/Vol] 11 mmol/L 9 - 16 mmol/L [facility] AST [Catalytic activity/Vol] 17 U/L 10 - 35 U/L [facility] Bilirubin [Mass/Vol] mg/dL 0.00 - 1.20 mg/dL [facility] Calcium [Mass/Vol] 9.9 mg/dL 8.6 - 10. 4 mg/dL [facility] Chloride [Moles/Vol] 101 mmol/L 98 - 10 7 mmol/L [facility] CO2 [Moles/Vol] 25 mmol/L 20 - 31 mmol/L [facility] Creatinine [Mass/Vol] 0.7 mg/dL 0.50 - 0.90 mg/dL [facility] Est, Emily Carreon Rate - PINF [facility] Comment on above: These results are not [...] 112 mg/dL High 74 - 99 mg/dL [facility] Interpretation and review of laboratory results Abnormal [facility] Potassium [Moles/Vol] 4.2 mmol/L 3.7 - 5.3 mmol/L [facility] Protein [Mass/Vol] 7.8 g/dL 6.6 - 8.7 g/dL [facility] Sodium [Moles/Vol] 137 mmol/L 136 - 145 mmol/L [facility] Urea nitrogen [Mass/Vol] 24 mg/dL High 6 - 20 mg/dL [facility] Urea nitrogen/Creatinine [Mass ratio] 34 mg/mg High 9 - 20 [facility] Comp Metabolic Profon 2023 Albumin [Mass/Vol] 4.4 g/dL Normal 3.5-5.2 [facility] Comment on above: Performed By: #### C DP, CP #### [facility] [address] [place] [address] Molder Helper: Domenica Velázquez MD Albumin/Glob Ratio 1.3 Normal 1.0-2.5 [facility] Comment on above: Performed By: #### C DP, CP #### [facility] [address] [place] [address] Molder Helper: Domenica Velázquez MD Alkaline Phos 87 U/L Normal 35-104 [facility] Comment on above: Performed By: #### C DP, CP #### [facility] [address] [place] [address] Molder Helper: Domenica Velázquez MD ALT [Catalytic activity/Vol] 25 U/L Normal -35 [facility] Comment on above: Performed By: #### C DP, CP #### [facility] [address] [place], [place] [id number] Molder Helper: Domenica Velázquez MD Anion gap [Moles/Vol] 11 mmol/L Normal 9-16 [facility] Comment on above: Performed By: #### C DP, CP #### [facility] [address] [place], [place] [id number] Molder Helper: Domenica Velázquez MD AST [Catalytic activity/Vol] 17 U/L Normal -35 [facility] Comment on above: Performed By: #### C DP, CP #### [facility] [address] [place], [place] [phone] Molder Helper: Domenica Velázquez MD Bilirubin [Mass/Vol] mg/dL Normal 0.00-1.20 [facility] Comment on above: Performed By: #### C DP, CP #### [facility] [address] [place], [place] [id number] Molder Helper: Domenica Velázquez MD BUN/CRE Ratio 34 High 9-20 [facility] Comment on above: Performed By: #### C DP, CP #### [facility] [address] [place], [place] [phone] Molder Helper: Domenica Velázquez MD Calcium [Mass/Vol] 9.9 mg/dL Normal 8.6-10.4 [facility] Comment on above: Performed By: #### C DP, CP #### [facility] [address] [place], [place] [phone] Molder Helper: Domenica Velázquez MD Chloride [Moles/Vol] 101 mmol/L Normal 98-107 [facility] Comment on above: Performed By: #### C DP, CP #### [facility] [address] [place] [address] Molder Helper: Domenica Velázquez MD CO2 [Moles/Vol] 25 mmol/L Normal 20-31 [facility] Comment on above: Performed By: #### C DP, CP #### [facility] [address] [place] [address] Molder Helper: Domenica Velázquez MD Creatinine [Mass/Vol] 0.7 mg/dL Normal 0.50-0.90 [facility] Comment on above: Performed By: #### C DP, CP #### [facility] [address] [place] [address] Molder Helper: Domenica Velázquez MD GFR/1.73 sq M.predicted among non-blacks MDRD (S/P/Bld) [Vol rate/Area] mL/min/{1.73_m2} Normal >60 [facility] Comment on above: Result Comment: These results [...] Performed By: #### C DP, CP #### [facility] [address] [place] [address] Molder Helper: Domenica Velázquez MD Glucose [Mass/Vol] 112 mg/dL High 74-99 [facility] Comment on above: Performed By: #### C DP, CP #### [facility] [address] [place] [address] Molder Helper: Domenica Velázquez MD Potassium [Moles/Vol] 4.2 mmol/L Normal 3.7-5.3 [facility] Comment on above: Performed By: #### C DP, CP #### [facility] [address] [place] [address] Molder Helper: Domenica Velázquez MD Protein [Mass/Vol] 7.8 g/dL Normal 6.6-8.7 [facility] Comment on above: Performed By: #### C DP, CP #### [facility] [address] [place], [place] [id number] Molder Helper: Domenica Velázquez MD Sodium [Moles/Vol] 137 mmol/L Normal 136-145 [facility] Comment on above: Performed By: #### C DP, CP #### [facility] [address] [place] [address] Molder Helper: Domenica Velázquez MD Urea nitrogen [Mass/Vol] 24 mg/dL High 6-20 [facility] Comment on above: Performed By: #### C DP, CP #### [facility] [address] [place] [address] Molder Helper: Domenica Velázquez MD Microscopic Urinalysison Bacteria LM Ql (Urine sed) 1+ Abnormal None [facility] Epithelial cells LM.HPF (Urine sed) [#/Area] 0 TO 2 [facility] Interpretation and review of laboratory results Abnormal [facility] Mucus Ql (Urine sed) TRACE Abnormal None [facility] RBC LM.HPF (Urine sed) [#/Area] 0 TO 2 [facility] WBC LM.HPF (Urine sed) [#/Area] None [facility] TSHon 01-13-2024 TSH Qn 1.57 m[IU]/L [facility] Thyroid Stim. Horm.on 2023 Thyroid Stim. Horm. 1.57 uIU/mL Normal 0.27-4.20 [facility] Comment on above: Performed By: #### T SH #### [facility] [address] [place] [address] Molder Helper: Domenica Velázquez MD UA w/Reflex Cultureon 2023 Bilirubin, SemiQt,Ur Negative Normal NEG [facility] Comment on above: Performed By: #### U MICAO, UAX #### [facility] [address] [place], [place] [phone] Molder Helper: Domenica Velázquez MD Blood, Urine Negative Normal NEG [facility] Comment on above: Performed By: #### U MICAO, UAX #### [facility] [address] [place], [place] [id number] Molder Helper: Domenica Velázquez MD Clarity (U) Clear Normal CLEAR [facility] Comment on above: Performed By: #### U MICAO, UAX #### [facility] [address] [place], [place] [phone] Molder Helper: Domenica Velázquez MD Color (U) Yellow Normal YEL [facility] Comment on above: Performed By: #### U MICAO, UAX #### [facility] [address] [place] [address] Molder Helper: Domenica Velázquez MD Glucose Ql (U) 3+ mg/dL Abnormal NEG [facility] Comment on above: Performed By: #### U MICAO, UAX #### [facility] [address] [place] [address] [place] [address] Molder Helper: Domenica Velázquez MD Ketones Ql (U) Negative Normal NEG [facility] Comment on above: Performed By: #### U MICAO, UAX #### [facility] [address] [place], [place] [phone] Molder Helper: Domenica Velázquez MD Leukocyte esterase Test strip Ql (U) Negative Normal NEG [facility] Comment on above: Performed By: #### U MICAO, UAX #### [facility] [address] [place], [place] [id number] Molder Helper: Domenica Velázquez MD Nitrite,Ur Negative Normal NEG [facility] Comment on above: Performed By: #### U MICAO, UAX #### [facility] [address] [place], [place] [id number] Molder Helper: Domenica Velázquez MD PH,Ur 6.0 Normal 5.0-9.0 [facility] Comment on above: Performed By: #### U MICAO, UAX #### [facility] [address] [place] [address] Molder Helper: Domenica Velázquez MD Protein Ql (U) Negative Normal NEG [facility] Comment on above: Performed By: #### U MICAO, UAX #### [address] [place], [place] [address] Molder Helper: Domenica Velázquez MD Spec. [place],Ur >1.030 High 1.010-1.02 0 [facility] Comment on above: Performed By: #### U MICAO, UAX #### [address] [place], [place] [phone] Molder Helper: Domenica Velázquez MD Urobilinogen,Ur Normal Normal 0.0-1.0 [facility] Comment on above: Performed By: #### U MICAO, UAX #### [address] [place], [place] [address]083 Molder Helper: Domenica Velázquez MD Urinalysis with Reflex to Cu ltureon 01-13-2024 Bilirubin Ql (U) Negative NEGATIVE [facility] Clarity (U) Clear Clear [facility] Color (U) Yellow Yellow [facility] Glucose Test strip (U) [Mass/Vol] 3+ Abnormal NEGATIVE mg/dL [facility] Hemoglobin Auto test strip Ql (U) Negative NEGATIVE [facility] Interpretation and review of laboratory results Abnormal [facility] Ketones (U) [Mass/Vol] Negative NEGATIVE mg/dL [facility] Leukocyte esterase Test strip Ql (U) Negative NEGATIVE [facility] Nitrite Ql (U) Negative NEGATIVE [facility] pH (U) 6.0 [pH] 5.0 - 9.0 [facility] Protein (U) [Mass/Vol] Negative NEGATIVE mg/dL [facility] Specific gravity (U) [Rel density] High 1.010 - 1.020 [facility] Urobilinogen Qn (U) Normal 0.0 - 1. 0 EU/dL [facility] Urinalysis,Microon 4 Bacteria 1+ Abnormal NONE [facility] Comment on above: Performed By: #### U MICAO, UAX #### [facility] [address] [place] [address] Molder Helper: Domenica Velázquez MD Epithelial cells LM Ql (Urine sed) 0 TO 2 Normal 0-25 [facility] Comment on above: Performed By: #### U MICAO, UAX #### [facility] [address] [place] [address] Molder Helper: Domenica Velázquez MD Mucus Strands TRACE Abnormal NONE [facility] Comment on above: Performed By: #### U MICAO, UAX #### [facility] [address] [place], [place] [address] Molder Helper: Domenica Velázquez MD Urine RBC's 0 TO 2 Normal 0-2 [facility] Comment on above: Performed By: #### U MICAO, UAX #### [facility] [address] [place] [address] Molder Helper: Domenica Velázquez MD Urine WBC's None Normal 0-5 [facility] Comment on above: Performed By: #### U MICAO, UAX #### [facility] [address] [place] [address] Molder Helper: Domenica Velázquez MD BASIC METABOLIC PANLon 12-20 Anion gap [Moles/Vol] 10 mmol/L Normal 5-15 [facility] Comment on above: Performed By: #### C BCA, BMP, FEPR, 2276-4 #### [facility] ([id number]) [address], [address] [place] [address] Calcium [Mass/Vol] 8.9 mg/dL Normal 8.5-10.5 [facility] Comment on above: Performed By: #### C BCA, BMP, FEPR, 2276-4 #### [facility] ([id number]) [address], [address] [place] [address] Chloride [Moles/Vol] 106 mmol/L Normal 98-109 [facility] Comment on above: Performed By: #### C BCA, BMP, FEPR, 2276-4 #### [facility] - [facility] ([id number]) [address], [address] [place] [address] CO2 [Moles/Vol] 22 mmol/L Normal 22-32 [facility] Comment on above: Performed By: #### C BCA, BMP, FEPR, 2276-4 #### [facility] ([id number]) [address], [address] [place] [address] Creatinine [Mass/Vol] 0.70 mg/dL Normal 0.40-1.00 [facility] Comment on above: Result Comment: METH OD TRACEABLE TO IDMS STANDARD Performed By: #### C BCA, BMP, FEPR, 2276-4 #### [facility] ([id number]) [address], [address] [place] [address] eGFR (CKD-EPI) NON-RACE DEPENDENT >90 Normal >59 [facility] Comment on above: Result Comment: Reported eGFR is based on the CKD-EPI 2020 equation that does not use a race coefficient. Performed By: #### C BCA, BMP, FEPR, 2276-4 #### [facility] ([id number]) [address], [address] [place] [address] Glucose [Mass/Vol] 89 mg/dL Normal 65-99 [facility] Comment on above: Performed By: #### C BCA, BMP, FEPR, 2275-4 #### [facility] ([id number]) [address] [place] [address] Potassium [Moles/Vol] 4.2 mmol/L Normal 3.5-5.0 [facility] Comment on above: Performed By: #### C BCA, BMP, FEPR, 2275-4 #### [facility] ([id number]) [address], [address] [place] [address] Sodium [Moles/Vol] 138 mmol/L Normal 134-146 [facility] Comment on above: Performed By: #### C BCA, BMP, FEPR, 2275-4 #### [facility] ([id number]) [address] [place] [address] Urea nitrogen [Mass/Vol] 18 mg/dL Normal 5-23 [facility] Comment on above: Performed By: #### C BCA, BMP, FEPR, 2275-4 #### [facility] ([id number]) [address] [place] [address] CBC AND AUTO DIFFon 10-21-20 24 ABSOLUTE BASOPHIL 0.0 X10E9/L Normal 0.0-0.2 [facility] Comment on above: Performed By: #### C BCA, BMP, FEPR, 2275-4 #### [facility] ([id number]) [address] [place] [address] ABSOLUTE NEUTROPHIL 5.7 X10E9/L Normal 1.5-6.6 [facility] Comment on above: Performed By: #### C BCA, BMP, FEPR, 2275-4 #### [facility] ([id number]) [address], [address] [place] [address] Basophils/100 WBC (Bld) 0.4 % Normal [facility] Comment on above: Performed By: #### C BCA, BMP, FEPR, 2275-4 #### [facility] ([id number]) [address], [facility] [address] [place] [address] Eosinophils (Bld) [#/Vol] 0.1 10*3/uL Normal 0.0-0.4 [facility] Comment on above: Performed By: #### C BCA, BMP, FEPR, 2275- #### [facility] ([id number]) [address], [address] [place] [address] Eosinophils/100 WBC (Bld) 1.2 % Normal [facility] Comment on above: Performed By: #### C BCA, BMP, FEPR, 2275- #### [facility] ([id number]) [address] [place] [address] Erythrocyte distribution width (RBC) [Ratio] 14.4 % Normal 11.5-15.0 [facility] Comment on above: Performed By: #### C BCA, BMP, FEPR, 2275- #### [facility] ([id number]) [address] [place] [address] Hematocrit (Bld) [Volume fraction] 37.4 % Normal 35-47 [facility] Comment on above: Performed By: #### C BCA, BMP, FEPR, 2275-4 #### [facility] ([id number]) [address] [place] [address] Hemoglobin (Bld) [Mass/Vol] 12.4 g/dL Normal 11.7-15.5 [facility] Comment on above: Performed By: #### C BCA, BMP, FEPR, 2275-4 #### [facility] ([id number]) [address], [facility] [address] [place] [address] Lymphocytes (Bld) [#/Vol] 2.4 10*3/uL Normal 1.0-3.5 [facility] Comment on above: Performed By: #### C BCA, BMP, FEPR, 2275-4 #### [facility] ([id number]) [address] [place] [address] Lymphocytes/100 WBC (Bld) 28.1 % Normal [facility] Comment on above: Performed By: #### C BCA, BMP, FEPR, 2275- #### [facility] ([id number]) [address] [place] [address] MCH (RBC) [Entitic mass] 28.8 pg Normal 27-34 [facility] Comment on above: Performed By: #### C BCA, BMP, FEPR, 2275- #### [facility] ([id number]) [address] [place] [address] MCHC (RBC) [Mass/Vol] 33.1 g/dL Normal 32-36 [facility] Comment on above: Performed By: #### C BCA, BMP, FEPR, 2275- #### [facility] ([id number]) [address] [address] MCV (RBC) [Entitic vol] 87 fL Normal 80-100 [facility] Comment on above: Performed By: #### C BCA, BMP, FEPR, 2275-4 #### [facility] ([id number]) [address] [place] [address] Monocytes (Bld) [#/Vol] 0.3 10*3/uL Normal 0-0.9 [facility] Comment on above: Performed By: #### C BCA, BMP, FEPR, 2275-4 #### [facility] ([id number]) [address] [place] [address] Monocytes/100 WBC (Bld) 3.0 % Normal [facility] Comment on above: Performed By: #### C BCA, BMP, FEPR, 2275-4 #### [facility] ([id number]) [address] [place] [address] Neutrophils/100 WBC (Bld) 67.3 % Normal [facility] Comment on above: Performed By: #### C BCA, BMP, FEPR, 2275-4 #### [facility] ([id number]) [address] [place] [address] Platelet mean volume (Bld) [Entitic vol] 8.8 fL Normal 7-12 [facility] Comment on above: Performed By: #### C BCA, BMP, FEPR, 2275-4 #### [facility] ([id number]) [address] [place] [address] Platelets (Bld) [#/Vol] 325 10*3/uL Normal 150-450 [facility] Comment on above: Performed By: #### C BCA, BMP, FEPR, 2275-4 #### [facility] ([id number]) [address] [place] [address] RBC COUNT 4.31 X10E12/L Normal 3.80-5.20 [facility] Comment on above: Performed By: #### C BCA, BMP, FEPR, 2275-4 #### [facility] ([id number]) [address] [place] [address] WBC (Bld) [#/Vol] 8.4 10*3/uL Normal 4.0-11.0 [facility] Comment on above: Performed By: #### C BCA, BMP, FEPR, 2275-4 #### [facility] ([id number]) [address] [place] [address] FERRITINon 12-21-2023 Ferritin [Mass/Vol] 195 ng/mL Normal 11-307 [facility] Comment on above: Performed By: #### C BCA, CMP, 82489-3, TSHR #### [facility] ([id number]) [address], [address] [place] [address] IRON PROFILEon 12-21-2023 Iron [Mass/Vol] 53 ug/dL Normal 50-170 [facility] Comment on above: Performed By: #### C BCA, BMP, FEPR, 2276-4 #### [facility] ([id number]) [address], [address] [place] [address] IRON BINDING 374 ug/dL Normal 250-425 [facility] Comment on above: Performed By: #### C BCA, BMP, FEPR, 2276-4 #### [facility] ([id number]) [address], [address] [place] [address] IRON SATURATION 14 % SATURATION Low 15-50 [facility] Comment on above: Performed By: #### C BCA, BMP, FEPR, 2276-4 #### [facility] ([id number]) [address], [address] [place] [address] CT ABDOMEN PELVIS W IV CONTR Dar [...] significant stool or gas noted. Evidence of bwwh-[id number]-pajjxstc diverticulosis of proximal sigmoid colon and descending [...] Zoë Nicole MD 10/07/23 Final result Normal [facility] Comp Metabolic Profon 2023 Albumin [Mass/Vol] 4.1 g/dL Normal 3.5-5.2 [facility] Comment on above: Performed By: #### L IP, CP, TROPI, CDP ####[address] , [place] [id number] Lab Director: Domenica Velázquez MD Albumin/Glob Ratio 1.4 Normal 1.0-2.5 [facility] Comment on above: Performed By: #### L IP, CP, TROPI, CDP ####[address] , [place] [phone] Director: Domenica Velázquez MD Alkaline Phos 85 U/L Normal 35-104 [facility] Comment on above: Performed By: #### L IP, CP, TROPI, CDP ####[address] [place] [address] Lab Director: Domenica Velázquez MD ALT [Catalytic activity/Vol] 12 U/L Normal 5-33 [facility] Comment on above: Performed By: #### L IP, CP, TROPI, CDP ####[address] [place] [address] Lab Director: Domenica Velázquez MD Anion gap [Moles/Vol] 11 mmol/L Normal 9-17 [facility] Comment on above: Performed By: #### L IP, CP, TROPI, CDP ####[address] , [place] [address] Lab Director: Domenica Velázquez MD AST [Catalytic activity/Vol] 14 U/L Normal <32 [facility] Comment on above: Performed By: #### L IP, CP, TROPI, CDP ####[address] [place] [address] lab Director: Domenica Velázquez MD Bilirubin [Mass/Vol] 0.2 mg/dL Low 0.3-1.2 [facility] Comment on above: Performed By: #### L IP, CP, TROPI, CDP ####[address] , [place] 2038[address] lab Director: Domenica Velázquez MD BUN/CRE Ratio 30 High 9-20 [facility] Comment on above: Performed By: #### L IP, CP, TROPI, CDP ####[address] , [place] 0[address] lab Director: Domenica Velázquez MD Calcium [Mass/Vol] 8.8 mg/dL Normal 8.6-10.4 [facility] Comment on above: Performed By: #### L IP, CP, TROPI, CDP ####[address] , [place] [address] lab Director: Domenica Velázquez MD Chloride [Moles/Vol] 103 mmol/L Normal 98-107 [facility] Comment on above: Performed By: #### L IP, CP, TROPI, CDP ####[address] , [place] 12[address] lab Director: Domenica Velázquez MD CO2 [Moles/Vol] 25 mmol/L Normal 20-31 [facility] Comment on above: Performed By: #### L IP, CP, TROPI, CDP ####[address] [place] [address] lab Director: Domenica Velázquez MD Creatinine [Mass/Vol] 0.6 mg/dL Normal 0.5-0.9 [facility] Comment on above: Performed By: #### L IP, CP, TROPI, CDP ####[address] [place] [address] Lab Director: Domenica Velázquez MD GFR/1.73 sq M.predicted among non-blacks MDRD (S/P/Bld) [Vol rate/Area] mL/min/{1.73_m2} Normal >60 [facility] Comment on above: Result Comment: These results [...] By: #### L IP, CP, TROPI, CDP ####[address] , [place] 5497483 lab Director: Domenica Velázquez MD Glucose [Mass/Vol] 92 mg/dL Normal 70-99 [facility] Comment on above: Performed By: #### L IP, CP, TROPI, CDP ####[address] [place] [address] lab Director: Domenica Velázquez MD Potassium [Moles/Vol] 3.6 mmol/L Low 3.7-5.3 [facility] Comment on above: Performed By: #### L IP, CP, TROPI, CDP ####[address] , [place] 18[address]83 lab Director: Domenica Velázquez MD Protein [Mass/Vol] 7.0 g/dL Normal 6.4-8.3 [facility] Comment on above: Performed By: #### L IP, CP, TROPI, CDP ####[address] [place] [address] lab Director: Domenica Velázquez MD Sodium [Moles/Vol] 139 mmol/L Normal 135-144 [facility] Comment on above: Performed By: #### L IP, CP, TROPI, CDP ####[facility] [place] , [place] 5860[address] Lab Director: Domenica Velázquez MD Urea nitrogen [Mass/Vol] 18 mg/dL Normal 6-20 [facility] Comment on above: Performed By: #### L IP, CP, TROPI, CDP ####[facility] [place] , [place] 8634[address] Lab Director: Domenica Velázquez MD Lipaseon 10-07-2023 Lipase [Catalytic activity/Vol] 28 U/L Normal 13-60 [facility] Comment on above: Performed By: #### L IP, CP, TROPI, CDP ####[address] , [place] 8022[address] Lab Director: Domenica Velázquez MD Troponinon 10-07-2023 Troponin, High Sens <6 Normal 0-14 [facility] Comment on above: Result Comment: High Sensitivity Troponin values cannot be compared with other Troponin methodologies. Performed By: #### L IP, CP, TROPI, CDP ####[address] , [place] 2545[address] Lab Director: Domenica Velázquez MD CBC with Diffon 10-06-2023 Abs. Basophil 0.03 k/uL Normal 0.00-0.20 [facility] Comment on above: Performed By: #### L IP, CP, TROPI, CDP ####[address] , [place] 3685783 Lab Director: Domenica Velázquez MD Abs.Imm.Granulocyte 0.03 k/uL Normal 0.00-0.30 [facility] Comment on above: Performed By: #### L IP, CP, TROPI, CDP ####[address], [place] [address])[phone] Director: Domenica Velázquez MD Abs.Neutrophil (Seg) 6.50 k/uL Normal 1.50-8.10 [facility] Comment on above: Performed By: #### L IP, CP, TROPI, CDP ####[address] [place] [phone])[phone] Director: Domenica Velázquez MD Basophils/100 WBC (Bld) 0 % Normal 0-2 [facility] Comment on above: Performed By: #### L IP, CP, TROPI, CDP ####[address] [place], [place] [address])[phone] Director: Domenica Velázquez MD Eosinophils (Bld) [#/Vol] 0.08 10*3/uL Normal 0.00-0.44 [facility] Comment on above: Performed By: #### L IP, CP, TROPI, CDP ####[address] , [place] [address])[phone] Director: Domenica Velázquez MD Eosinophils/100 WBC (Bld) 1 % Normal 1-4 [facility] Comment on above: Performed By: #### L IP, CP, TROPI, CDP ####[address] [place], [place] [address])[phone] Director: Domenica Velázquez MD Erythrocyte distribution width (RBC) [Ratio] 13.5 % Normal 11.8-14.4 [facility] Comment on above: Performed By: #### L IP, CP, TROPI, CDP ####[address] [place] [phone]([facility])[phone] Director: Domenica Velázquez MD Hematocrit (Bld) [Volume fraction] 40.1 % Normal 36.3-47.1 [facility] Comment on above: Performed By: #### L IP, CP, TROPI, CDP ####[address] , [place] [address] Lab Director: Domenica Velázquez MD Hemoglobin (Bld) [Mass/Vol] 13.4 g/dL Normal 11.9-15.1 [facility] Comment on above: Performed By: #### L IP, CP, TROPI, CDP ####[address] , [place] 9[address]83 Lab Director: Domenica Velázquez MD Immature granulocytes/100 WBC (Bld) 0 % Normal 0 [facility] Comment on above: Performed By: #### L IP, CP, TROPI, CDP ####[address] [place] [address] Lab Director: Domenica Velázquez MD Lymphocytes (Bld) [#/Vol] 2.41 10*3/uL Normal 1.10-3.70 [facility] Comment on above: Performed By: #### L IP, CP, TROPI, CDP ####[address] , [facility]83 Lab Director: Domenica Velázquez MD Lymphocytes/100 WBC (Bld) 25 % Normal 24-43 [facility] Comment on above: Performed By: #### L IP, CP, TROPI, CDP ####[address] , [place] 6373883 Lab Director: Domenica Velázquez MD MCH (RBC) [Entitic mass] 28.6 pg Normal 25.2-33.5 [facility] Comment on above: Performed By: #### L IP, CP, TROPI, CDP ####[address] , [place] 1923783 Lab Director: Domenica Velázquez MD MCHC (RBC) [Mass/Vol] 33.4 g/dL Normal 28.4-34.8 [facility] Comment on above: Performed By: #### L IP, CP, TROPI, CDP ####[address] [facility]24 Lab Director: Domenica Velázquez MD MCV (RBC) [Entitic vol] 85.7 fL Normal 82.6-102.9 [facility] Comment on above: Performed By: #### L IP, CP, TROPI, CDP ####[address] , [facility]83 Lab Director: Dmoenica Velázquez MD Monocytes (Bld) [#/Vol] 0.69 10*3/uL Normal 0.10-1.20 [facility] Comment on above: Performed By: #### L IP, CP, TROPI, CDP ####[address] , [facility]83 Lab Director: Domenica Velázquez MD Monocytes/100 WBC (Bld) 7 % Normal 3-12 [facility] Comment on above: Performed By: #### L IP, CP, TROPI, CDP ####[address] , [facility]83 Lab Director: Domenica Velázquez MD Neutrophil (Seg) 67 % High 36-65 [facility] Comment on above: Performed By: #### L IP, CP, TROPI, CDP ####[address] , [facility]83 Lab Director: Domenica Velázquez MD NRBC Automated 0.0 per 100 WBC Normal 0.0 [facility] Comment on above: Performed By: #### L IP, CP, TROPI, CDP ####[address] , [place] [id number] Lab Director: Domenica Velázquez MD Platelet mean volume (Bld) [Entitic vol] 10.5 fL Normal 8.1-13.5 [facility] Comment on above: Performed By: #### L IP, CP, TROPI, CDP ####[address] , [facility]83 [facility] Director: Domenica Velázquez MD Platelets (Bld) [#/Vol] 292 10*3/uL Normal 138-453 [facility] Comment on above: Performed By: #### L IP, CP, TROPI, CDP ####[facility] [place] , [place] 14[address]83 Lab Director: Domenica Velázquez MD RBC (Bld) [#/Vol] 4.68 10*6/uL Normal 3.95-5.11 [facility] Comment on above: Performed By: #### L IP, CP, TROPI, CDP ####[facility] [place] , [place] 2163183 Lab Director: Domenica Velázquez MD WBC (Bld) [#/Vol] 9.7 10*3/uL Normal 3.5-11.3 [facility] Comment on above: Performed By: #### L IP, CP, TROPI, CDP ####[address] , [place] 56[address] [facility] Director: Domenica Velázquez MD Basic Metabolic Profon 10-04 Anion gap [Moles/Vol] 10 mmol/L Normal 9-17 [facility] Comment on above: Performed By: #### C DP, BMP, DIME, TROPI #### [address] [place], [facility] ( Molder Helper: Domenica Velázquez MD BUN/CRE Ratio 23 High 9-20 [facility] Comment on above: Performed By: #### C DP, BMP, DIME, TROPI #### [facility] [address] [place], [place] [phone] Molder Helper: Domenica eVlázquez MD Calcium [Mass/Vol] 8.9 mg/dL Normal 8.6-10.4 [facility] Comment on above: Performed By: #### C DP, BMP, DIME, TROPI #### [facility] [address] [place] [address] Molder Helper: Domenica Velázquez MD Chloride [Moles/Vol] 105 mmol/L Normal 98-107 [facility] Comment on above: Performed By: #### C DP, BMP, DIME, TROPI #### [facility] [address] [place] [address] Molder Helper: Domenica Velázquez MD CO2 [Moles/Vol] 26 mmol/L Normal 20-31 [facility] Comment on above: Performed By: #### C DP, BMP, DIME, TROPI #### [facility] [address] [place] [address] Molder Helper: Domenica Velázquez MD Creatinine [Mass/Vol] 0.6 mg/dL Normal 0.5-0.9 [facility] Comment on above: Performed By: #### C DP, BMP, DIME, TROPI #### [facility] [address] [place] [address] Molder Helper: Domenica Velázquez MD GFR/1.73 sq M.predicted among non-blacks MDRD (S/P/Bld) [Vol rate/Area] mL/min/{1.73_m2} Normal >60 [facility] Comment on above: Result Comment: These results [...] #### C DP, BMP, DIME, TROPI #### [facility] [address] [place] [address] Molder Helper: Domenica Velázquez MD Glucose [Mass/Vol] 96 mg/dL Normal 70-99 [facility] Comment on above: Performed By: #### C DP, BMP, DIME, TROPI #### [facility] [address] [place], [place] [phone] Molder Helper: Domenica Velázquez MD Potassium [Moles/Vol] 3.8 mmol/L Normal 3.7-5.3 [facility] Comment on above: Performed By: #### C DP, BMP, DIME, TROPI #### [address] [place] [address] Molder Helper: Domenica Velázquez MD Sodium [Moles/Vol] 141 mmol/L Normal 135-144 [facility] Comment on above: Performed By: #### C DP, BMP, DIME, TROPI #### [address] [place], [place] [phone] Molder Helper: Domenica Velázquez MD Urea nitrogen [Mass/Vol] 14 mg/dL Normal 6-20 [facility] Comment on above: Performed By: #### C DP, BMP, DIME, TROPI #### [address] [place], [place] 328[address]83 Molder Helper: Domenica Velázquez MD CBC with Diffon 10-05-2023 Abs. Basophil <0.03 Normal 0.00-0.20 [facility] Comment on above: Performed By: #### C DP, BMP, DIME, TROPI #### [address] [place], [place] [phone] Molder Helper: Domenica Velázquez MD Abs.Imm.Granulocyte 0.03 k/uL Normal 0.00-0.30 [facility] Comment on above: Performed By: #### C DP, BMP, DIME, TROPI #### [address] [place], [place] [address] Molder Helper: Domenica Velázquez MD Abs.Neutrophil (Seg) 5.10 k/uL Normal 1.50-8.10 [facility] Comment on above: Performed By: #### C DP, BMP, DIME, TROPI #### [address] [place] [address] Molder Helper: Domenica Velázquez MD Basophils/100 WBC (Bld) 0 % Normal 0-2 [facility] Comment on above: Performed By: #### C DP, BMP, DIME, TROPI #### [address] [place] [address] Molder Helper: Domenica Velázquez MD Eosinophils (Bld) [#/Vol] 0.11 10*3/uL Normal 0.00-0.44 [facility] Comment on above: Performed By: #### C DP, BMP, DIME, TROPI #### [address] [place] [address] Molder Helper: Domenica Velázquez MD Eosinophils/100 WBC (Bld) 1 % Normal 1-4 [facility] Comment on above: Performed By: #### C DP, BMP, DIME, TROPI #### [address] [place] [address] Molder Helper: Domenica Velázquez MD Erythrocyte distribution width (RBC) [Ratio] 13.5 % Normal 11.8-14.4 [facility] Comment on above: Performed By: #### C DP, BMP, DIME, TROPI #### [address] [place] [address] Molder Helper: Domenica Velázquez MD Hematocrit (Bld) [Volume fraction] 42.6 % Normal 36.3-47.1 [facility] Comment on above: Performed By: #### C DP, BMP, DIME, TROPI #### [address] [place] [address] Molder Helper: Domenica Velázquez MD Hemoglobin (Bld) [Mass/Vol] 14.1 g/dL Normal 11.9-15.1 [facility] Comment on above: Performed By: #### C DP, BMP, DIME, TROPI #### [facility] [address] [place] [address] Molder Helper: Domenica Velázquez MD Immature granulocytes/100 WBC (Bld) 0 % Normal 0 [facility] Comment on above: Performed By: #### C DP, BMP, DIME, TROPI #### [facility] [address] [place] [address] Molder Helper: Domenica Velázquez MD Lymphocytes (Bld) [#/Vol] 2.42 10*3/uL Normal 1.10-3.70 [facility] Comment on above: Performed By: #### C DP, BMP, DIME, TROPI #### [address] [place] [id number] Molder Helper: Domenica Velázquez MD Lymphocytes/100 WBC (Bld) 30 % Normal 24-43 [facility] Comment on above: Performed By: #### C DP, BMP, DIME, TROPI #### [address] [place] [address] Molder Helper: Domenica Velázquez MD MCH (RBC) [Entitic mass] 28.8 pg Normal 25.2-33.5 [facility] Comment on above: Performed By: #### C DP, BMP, DIME, TROPI #### [address] [place], [facility]83 Molder Helper: Domenica Velázquez MD MCHC (RBC) [Mass/Vol] 33.1 g/dL Normal 28.4-34.8 [facility] Comment on above: Performed By: #### C DP, BMP, DIME, TROPI #### [address] [place], [facility]83 Molder Helper: Domenica Velázquez MD MCV (RBC) [Entitic vol] 87.1 fL Normal 82.6-102.9 [facility] Comment on above: Performed By: #### C DP, BMP, DIME, TROPI #### [address] [place], [place] 36[address]483 Molder Helper: Domenica Velázquez MD Monocytes (Bld) [#/Vol] 0.53 10*3/uL Normal 0.10-1.20 [facility] Comment on above: Performed By: #### C DP, BMP, DIME, TROPI #### [address] [place] [address] Molder Helper: Domenica Velázquez MD Monocytes/100 WBC (Bld) 7 % Normal 3-12 [facility] Comment on above: Performed By: #### C DP, BMP, DIME, TROPI #### [address] [place], [facility]83 Molder Helper: Domenica Velázquez MD Neutrophil (Seg) 62 % Normal 36-65 [facility] Comment on above: Performed By: #### C DP, BMP, DIME, TROPI #### [address] [place], [place] 1832383 Molder Helper: Domenica Velázquze MD NRBC Automated 0.0 per 100 WBC Normal 0.0 [facility] Comment on above: Performed By: #### C DP, BMP, DIME, TROPI #### [address] [place], [place] 1593683 Molder Helper: Domenica Velázquez MD Platelet mean volume (Bld) [Entitic vol] 10.9 fL Normal 8.1-13.5 [facility] Comment on above: Performed By: #### C DP, BMP, DIME, TROPI #### [address] [place], [place] 3068683 Molder Helper: Domenica Velázquez MD Platelets (Bld) [#/Vol] 296 10*3/uL Normal 138-453 [facility] Comment on above: Performed By: #### C DP, BMP, DIME, TROPI #### [facility] [address] [place], [place] 6595683 Molder Helper: Domenica Velázquez MD RBC (Bld) [#/Vol] 4.89 10*6/uL Normal 3.95-5.11 [facility] Comment on above: Performed By: #### C DP, BMP, DIME, TROPI #### [facility] [address] [place] [address] Molder Helper: Domenica Velázquez MD WBC (Bld) [#/Vol] 8.2 10*3/uL Normal 3.5-11.3 [facility] Comment on above: Performed By: #### C DP, BMP, DIME, TROPI #### [facility] [address] [place] [address] Molder Helper: Domenica Velázquez MD CT CHEST PULMONARY EMBOLISM [...] Fernando Marcelino MD 10/05/23 Final result Normal [facility] D-Dimer Teston 10-05-2023 D-Dimer Test 0.30 ug/mL FEU Normal 0.00-0.59 [facility] Comment on above: Result Comment: When combined [...] By: #### C DP, BMP, DIME, TROPI ####[facility] [place] [address] lab Director: Domenica Velázquez MD Liver Profileon 10-05-2023 Albumin [Mass/Vol] 4.4 g/dL Normal 3.5-5.2 [facility] Comment on above: Performed By: #### L IVP ####[facility] [place], [place] 532[address] Lab Director: Domenica Velázquez MD Albumin/Glob Ratio 1.4 Normal 1.0-2.5 [facility] Comment on above: Performed By: #### L IVP ####[address] , [place] 9[address]683 Lab Director: Domenica Velázquez MD Alkaline Phos 99 U/L Normal 35-104 [facility] Comment on above: Performed By: #### L IVP ####[address] , [place] 2711683 Lab Director: Domenica Velázquez MD ALT [Catalytic activity/Vol] 13 U/L Normal 5-33 [facility] Comment on above: Performed By: #### L IVP ####[address] , [place] 085[address]83 Lab Director: Domenica Velázquez MD AST [Catalytic activity/Vol] 16 U/L Normal <32 [facility] Comment on above: Performed By: #### L IVP ####[address] , [place] 6940283 Lab Director: Domenica Velázquez MD Bilirubin [Mass/Vol] 0.2 mg/dL Low 0.3-1.2 [facility] Comment on above: Performed By: #### L IVP ####[address] [place] [address] Lab Director: Domenica Velázquez MD Bilirubin, Indirect Can not be calculated Normal 0.0-1 .0 [facility] Comment on above: Performed By: #### L IVP ####[address] , [place] 2033083 Lab Director: Domenica Velázquez MD Bilirubin.indirect [Mass/Vol] mg/dL Normal <0.3 [facility] Comment on above: Performed By: #### L IVP ####[facility] , [place] 1452083 Lab Director: Domenica Velázquez MD Protein [Mass/Vol] 7.5 g/dL Normal 6.4-8.3 [facility] Comment on above: Performed By: #### L IVP ####[facility] , [place] 0[address]1883 Lab Director: Domenica Velázquez MD Troponinon 10-05-2023 Troponin, High Sens <6 Normal 0-14 [facility] Comment on above: Result Comment: High Sensitivity Troponin values cannot be compared with other Troponin methodologies. Performed By: #### T ROPI ####[facility] [place] [address] Lab Director: Domenica Velázquez MD Troponin, High Sens <6 Normal 0-14 [facility] Comment on above: Result Comment: High Sensitivity Troponin values cannot be compared with other Troponin methodologies. Performed By: #### C DP, BMP, DIME, TROPI #### [facility] [address] [place], [place] 9438483 Molder Helper: Domenica Velázquez MD XR CHEST PORTABLEon 10-05-19 [...] Deyanira Lock MD 10/05/23 Final result Normal [facility] CT CERVICAL SPINE WO CONTRAS Ton 04-20-2023 [...] Andi Montoya MD 04/20/23 Final result Normal [facility] CT Cervical spine WO contras ton 04-20-2023 Radiology Study observation (narrative) [facility] CT HEAD WO CONTRASTon 2023 CT HEAD [...] Andi Montoya MD 04/20/23 Final result Normal [facility] CT Head WO contraston 2023 Radiology Study observation (narrative) [facility] No Panel Informationon 04-[address] [...] osseous abnormality identified in the cervical spine. [facility]QUAHAlereon [facility] No Panel InformationOrdered By: Andi Montoya on 04-20-2023 [facility] Work Phone: Glucose Glucometer (BldC) [M ass/Vol]on 03-27-2023 Glucose [Mass/Vol] 151 mg/dL High 65-99 [facility] Glucose Poct Glucometerson 0 03-18-2023 Commemt1 Glu2: Cleaned Meter Normal [facility] Comment on above: Result Comment: PERF ORMED BY: [facility] [address] [place] [id number] PATHOLOGIST [employer]AZINE FEEDER SHA VALERA M.D. Performed By: #### G LULS #### Point of Care testing , Glucose [Mass/Vol] 87 mg/dL Normal [facility] Comment on above: Result Comment: [facility] Glucose Reference Range is dependent on time and content of last meal. Glucose of more than 200 mg/dL in a nonstressed, ambulatory subject supports the diagnosis of Diabetes Mellitus. Performed By: #### G LULS #### Point of Care testing , HCG,Urineon 03-18-2023 Beta HCG ( test) Ql (U) Negative Normal [facility] Comment on above: Result Comment: PERF ORMED BY: [place] [address] PATHOLOGIST MAGAZINE FEEDER SHA VALERA M.D. Performed By: #### U HCG #### [address] CBC AND AUTO DIFFon 03-16-19 ABSOLUTE BASOPHIL 0.0 X10E9/L Normal 0.0-0.2 [facility] Comment on above: Performed By: #### C JAHAIRA BURGESS, 01788-6, TSHR #### [facility] ([id number]) [address], [address] [place] [address] ABSOLUTE NEUTROPHIL 7.7 X10E9/L High 1.5-6.6 [facility] Comment on above: Performed By: #### C JAHAIRA BURGESS, 39907-4, TSHR #### [facility] ([id number]) [address], [address] [place] [address] Basophils/100 WBC (Bld) 0.3 % Normal [facility] Comment on above: Performed By: #### C JAHAIRA BURGESS, 42638-1, TSHR #### [facility] ([id number]) [address], [address] [place] [address] Eosinophils (Bld) [#/Vol] 0.1 10*3/uL Normal 0.0-0.4 [facility] Comment on above: Performed By: #### Terrell BURGESS CMP, 82698-2, TSHR #### [facility] ([id number]) [address], [address] [place] [address] Eosinophils/100 WBC (Bld) 1.1 % Normal [facility] Comment on above: Performed By: #### Terrell BURGESS CMP, 97225-7, TSHR #### [facility] ([id number]) [address] [place] [address] Erythrocyte distribution width (RBC) [Ratio] 14.6 % Normal 11.5-15.0 [facility] Comment on above: Performed By: #### Terrell BURGESS CMP, 05778-7, TSHR #### [facility] ([id number]) [address], [facility] [address] [place] [address] Hematocrit (Bld) [Volume fraction] 45.7 % Normal 35-47 [facility] Comment on above: Performed By: #### Terrell BURGESS CMP, 30337-0, TSHR #### [facility] ([id number]) [address] [place] [address] Hemoglobin (Bld) [Mass/Vol] 15.0 g/dL Normal 11.7-15.5 [facility] Comment on above: Performed By: #### Terrell BURGESS CMP, 73912-4, TSHR #### [facility] ([id number]) [address], [facility] [address] [place] [address] Lymphocytes (Bld) [#/Vol] 2.4 10*3/uL Normal 1.0-3.5 [facility] Comment on above: Performed By: #### Terrell BURGESS CMP, 94725-6, TSHR #### [facility] ([id number]) [address], [address] [place] [address] Lymphocytes/100 WBC (Bld) 22.1 % Normal [facility] Comment on above: Performed By: #### Terrell BURGESS CMP, 54381-9, TSHR #### [facility] ([id number]) [address], [address] [place] [address] MCH (RBC) [Entitic mass] 29.0 pg Normal 27-34 [facility] Comment on above: Performed By: #### C JAHAIRA BURGESS, 00390-9, TSHR #### [facility] ([id number]) [address], [address] [place] [address] MCHC (RBC) [Mass/Vol] 32.8 g/dL Normal 32-36 [facility] Comment on above: Performed By: #### Terrell BURGESS CMP, 93637-0, TSHR #### [facility] ([id number]) [address], [address] [place] [address] MCV (RBC) [Entitic vol] 88 fL Normal 80-100 [facility] Comment on above: Performed By: #### Terrell BURGESS CMP, 45411-5, TSHR #### [facility] ([id number]) [address] [place] [address] Monocytes (Bld) [#/Vol] 0.6 10*3/uL Normal 0-0.9 [facility] Comment on above: Performed By: #### Terrell BURGESS CMP, 00833-9, TSHR #### [facility] ([id number]) [address], [address] [place] [address] Monocytes/100 WBC (Bld) 5.7 % Normal [facility] Comment on above: Performed By: #### Terrell BURGESS CMP, 98517-3, TSHR #### [facility] ([id number]) [address], [address] [place] [address] Neutrophils/100 WBC (Bld) 70.8 % Normal [facility] Comment on above: Performed By: #### C BCA, CMP, 62259-3, TSHR #### [facility] ([id number]) [address] [place] [address] Platelet mean volume (Bld) [Entitic vol] 9.7 fL Normal 7-12 [facility] Comment on above: Performed By: #### C BCA, CMP, 96694-6, TSHR #### [facility] ([id number]) [address] [place] [address] Platelets (Bld) [#/Vol] 303 10*3/uL Normal 150-450 [facility] Comment on above: Performed By: #### C BCA, CMP, 04757-0, TSHR #### [facility] ([id number]) [address] [place] [address] RBC COUNT 5.17 X10E12/L Normal 3.80-5.20 [facility] Comment on above: Performed By: #### C BCA, CMP, 53677-8, TSHR #### [facility] ([id number]) [address] [place] [address] WBC (Bld) [#/Vol] 10.9 10*3/uL Normal 4.0-11.0 [facility] Comment on above: Performed By: #### C BCA, CMP, 19699-4, TSHR #### [facility] ([id number]) [address], [address] [place] [address] COMPREHENSIVE METABOLIC PANE Dirk 03-16-2023 Albumin [Mass/Vol] 4.7 g/dL Normal 3.2-5.3 [facility] Comment on above: Performed By: #### C BCA, CMP, 59278-1, TSHR #### [facility] ([id number]) [address] [place] [address] ALP [Catalytic activity/Vol] 74 U/L Normal 39-130 [facility] Comment on above: Performed By: #### C ADITYA CMP, 02130-9, TSHR #### [facility] ([id number]) [address], [address] [place] [address] ALT [Catalytic activity/Vol] 22 U/L Normal 0-31 [facility] Comment on above: Performed By: #### C ADITYA CMP, 72687-4, TSHR #### [facility] ([id number]) [address], [address] [place] [address] Anion gap [Moles/Vol] 12 mmol/L Normal 5-15 [facility] Comment on above: Performed By: #### C ADITYA, CMP, 98507-5, TSHR #### [facility] ([id number]) [address], [address] [place] [address] AST [Catalytic activity/Vol] 20 U/L Normal 0-41 [facility] Comment on above: Performed By: #### C JAHAIRA BURGESS, 60356-8, TSHR #### [facility] ([id number]) [address], [address] [place] [address] Bilirubin [Mass/Vol] 0.5 mg/dL Normal 0.3-1.2 [facility] Comment on above: Performed By: #### C ADITYA CMP, 29836-5, TSHR #### [facility] ([id number]) [address], [address] [place] [address] Calcium [Mass/Vol] 9.9 mg/dL Normal 8.5-10.5 [facility] Comment on above: Performed By: #### C BCA, CMP, 68350-3, TSHR #### [facility] ([id number]) [address], [address] [place] [address] Chloride [Moles/Vol] 105 mmol/L Normal 98-109 [facility] Comment on above: Performed By: #### C JAHAIRA BURGESS, 69241-4, TSHR #### [facility] ([id number]) [address], [address] [place] [address] CO2 [Moles/Vol] 25 mmol/L Normal 22-32 [facility] Comment on above: Performed By: #### C JAHAIRA BURGESS, 66582-8, TSHR #### [facility] ([id number]) [address], [address] [place] [address] Creatinine [Mass/Vol] 0.74 mg/dL Normal 0.40-1.00 [facility] Comment on above: Result Comment: METH OD TRACEABLE TO IDMS STANDARD Performed By: #### C JAHAIRA BURGESS, 64809-7, TSHR #### [facility] ([id number]) [address], [address] [place] [address] eGFR (CKD-EPI) NON-RACE DEPENDENT >90 Normal >59 [facility] Comment on above: Result Comment: Reported eGFR is based on the CKD-EPI 2020 equation that does not use a race coefficient. Performed By: #### C JAHAIRA BURGESS, 40041-5, TSHR #### [facility] ([id number]) [address], [address] [place] [address] Glucose [Mass/Vol] 143 mg/dL High 65-99 [facility] Comment on above: Performed By: #### C JAHAIRA BURGESS, 81367-5, TSHR #### [facility] ([id number]) [address] [place] [address] Potassium [Moles/Vol] 3.8 mmol/L Normal 3.5-5.0 [facility] Comment on above: Performed By: #### C JAHAIRA BURGESS, 46217-5, TSHR #### [facility] ([id number]) [address], [address] [place] [address] Protein [Mass/Vol] 7.8 g/dL Normal 6.0-8.0 [facility] Comment on above: Performed By: #### Terrell BURGESS CMP, 77337-9, TSHR #### [facility] ([id number]) [address], [address] [place] [address] Sodium [Moles/Vol] 142 mmol/L Normal 134-146 [facility] Comment on above: Performed By: #### Terrell BURGESS CMP, 20329-4, TSHR #### [facility] ([id number]) [address], [facility] [address] [place] [address] Urea nitrogen [Mass/Vol] 17 mg/dL Normal 5-23 [facility] Comment on above: Performed By: #### Terrell BURGESS CMP, 90018-6, TSHR #### [facility] ([id number]) [address], [address] [place] [address] HGB A1C (GLYCO-HGB)on 2023 Glucose [Mass/Vol] 117 mg/dL Normal [facility] Comment on above: Performed By: #### Terrell BURGESS CMP, 69557-1, TSHR #### [facility] ([id number]) [address], [address] [place] [address] HbA1c (Bld) [Mass fraction] 5.7 % High 4.4-5.6 [facility] Comment on above: Result Comment: NOTE ADA Guidelines Result HgbA1c Normal : less than 5.7 % Prediabetes : 5.7 % to 6.4 % Diabetes : > 6.4 % Use with caution in patients with abnormal hemoglobin variants as the half-life of red blood cells and in vivo glycation rates are affected. Performed By: #### Terrell BURGESS CMP, 62889-7, TSHR #### [facility] ([id number]) [address], [address] [place] [address] Lipid 1996 panelon 4 Cholesterol [Mass/Vol] 132 mg/dL Low 150-200 [facility] Comment on above: Performed By: #### Terrell BURGESS CMP, 45015-2, TSHR #### [facility] ([id number]) [address], [address] [place] [address] Cholesterol in HDL [Mass/Vol] 58 mg/dL Normal >39 [facility] Comment on above: Result Comment: HDL <40 mg/dL - High Risk HDL > or = 40mg/dL- Desirable HDL >60 mg/dL - Negative Risk Performed By: #### Terrell BURGESS CMP, 50641-6, TSHR #### [facility] ([id number]) [address], [address] [place] [address] Cholesterol in LDL [Mass/Vol] 51 mg/dL Normal <130 [facility] Comment on above: Result Comment: LDL <100 mg/dL - Desirable LDL >160 mg/dL - High Risk Performed By: #### Terrell BURGESS CMP, 03896-5, TSHR #### [facility] ([id number]) [address] [place] [address] Cholesterol in VLDL [Mass/Vol] 23 mg/dL Normal 0-30 [facility] Comment on above: Performed By: #### Terrell BURGESS CMP, 69158-7, TSHR #### [facility] ([id number]) [address], [address] [place] [address] CHOLESTEROL:HDL 2.3 Normal 1.0-5.0 [facility] Comment on above: Performed By: #### Terrell BURGESS, CMP, 08651-8, TSHR #### [facility] ([id number]) [address], [address] [place] [address] Triglyceride [Mass/Vol] 114 mg/dL Normal 27-150 [facility] Comment on above: Performed By: #### C BCA, CMP, 03660-9, TSHR #### [facility] ([id number]) [address] [place] [address] MAMM SCREENING BILATERAL W C ichthyologist 03-16-2023 MAMM SCREENING BILATERAL W CAD MAMM [...] 3:25 PM 0A a ADDITIONAL I Normal [facility] TSH WITH REFLEXon 03-16-2023 TSH 0.55 uIU/mL Normal 0.49-4.67 [facility] Comment on above: Performed By: #### C BCA, CMP, 38953-3, TSHR #### [facility] ([id number]) [address], [address] [place] [address] PT - Assessmentson 3 PT - Assessments [id number]#1.00CD:12 7 Normal [facility] ST - Assessmentson 3 ST - Assessments [id number]#1.00CD:127 Normal [facility] Consenton 09-25-2022 Consent [id number]#1.00CD:127 [facility] Outside Recordson 2022 Outside Records [id number]#1.00CD:127 [facility] ST - Orderson 2022 ST - Orders [id number]#1.00CD:127 [facility] ST - Orders [id number]#1.00CD:127 Normal [facility] ST - Otheron 2022 ST - Other [id number]#1.00CD:127 [facility] PAP ACOG PANEL 2: 30 to 65on 05-27-2022 . . Normal [facility] Comment on above: Result Comment: Perf ormed at: WB Performed By: #### 4 [id number] #### [facility] [address] [place] [address] Dr. Do Aguilar Age Gdln ACOG Testing 30-65 [facility] Comment on above: Performed By: #### 4 [id number] #### [facility] [address] [place] [address] [address] Do Aguilar DIAGNOSIS: Comment Normal [facility] Comment on above: Result Comment: NEGA TIVE FOR INTRAEPITHELIAL LESION OR MALIGNANCY. Performed at: WB Performed By: #### 4 [id number] #### [facility] [address] [place] [address] [address] Do Aguilar HPV Aptima Negative Normal Negative [facility] Comment on above: Result Comment: This nucleic acid amplification test detects fourteen high-risk HPV types (16,18,31,33,35,39,45,51,52,56,58,59,66,68) without differentiation. Performed at: =G Performed By: #### 4 [id number] #### [facility] [address] [place] [address] Dr. Do Aguilar HPV Genotype Reflex Comment Normal [facility] Comment on above: Result Comment: Crit eria not met, HPV Genotype not performed. Performed at: WB Performed By: #### 4 [id number] #### [facility] [address] [place] [address] Dr. Do Aguilar Methodology: Comment Normal [facility] Comment on above: Result Comment: This liquid based ThinPrep(R) pap test was screened with the use of an image guided system. Performed at: WB Performed By: #### 4 [id number] #### [facility] [address] [place] [address] Dr. Do Aguilar Note: Comment Normal [facility] Comment on above: Result Comment: The Pap smear is a screening test designed to aid in the detection of premalignant and malignant conditions of the uterine cervix. It is not a diagnostic procedure and should not be used as the sole means of detecting cervical cancer. Both false-positive and false-negative reports do occur. . Performed at: WB Performed By: #### [id number] #### [facility] [address] [place] [address] Dr. Do Aguilar Performed by: Comment Normal [facility] Comment on above: Result Comment: Melissa Ramachandran, Guitar Repair Technician (ASCP) Performed at: WB Performed By: #### [id number] #### [facility] [address] [place] [address] Dr. Do Aguilar Specimen adequacy: Comment Normal [facility] Comment on above: Result Comment: Sati sfactory for evaluation. Endocervical and/or squamous metaplastic cells (endocervical component) are present. Performed at: WB Performed By: #### [id number] #### [facility] [address] [place] [address] Dr. Do Aguilar HEPATITIS C AB CASCADE TO QU ANT PCR GENOon 02-18-2022 HCV AB <0.1 Normal 0.0-0.9 [facility] Comment on above: Performed By: #### H EPCASC #### [facility] [address] [place] [address] Dr. Do Aguilar Interpretation: Comment Normal [facility] Comment on above: Result Comment: Nega tive Not infected with HCV, unless recent infection is suspected or other evidence exists to indicate HCV infection. Performed By: #### H EPCASC #### [facility] [address] [place] [address] Dr. Do Aguilar LIVER PROFILEon 02-17-2022 Albumin [Mass/Vol] 3.6 g/dL Normal 3.4-5.0 [facility] Comment on above: Performed By: #### L IVER #### [facility] [address] [place] [address] Dr. Do Aguilar Albumin/Globulin [Mass ratio] 0.9 {ratio} Normal [facility] Comment on above: Performed By: #### L IVER #### [facility] [address] [place] [address] Dr. Do Aguilar ALP [Catalytic activity/Vol] 79 U/L Normal 46-116 [facility] Comment on above: Performed By: #### L IVER #### [facility] [address] [place] [address] Dr. Do Aguilar ALT [Catalytic activity/Vol] 51 U/L Normal 14-59 [facility] Comment on above: Performed By: #### L IVER #### [facility] [address] [place] [address] Dr. Do Aguilar AST [Catalytic activity/Vol] 33 U/L Normal 15-37 [facility] Comment on above: Performed By: #### L IVER #### [facility] [address] [place] [address] Dr. Do Aguilar BILI, CONJUGATED 0.1 mg/dL Normal 0.0-0.2 [facility] Comment on above: Performed By: #### L IVER #### [facility] [address] [place] [address] Dr. Do Aguilar Bilirubin [Mass/Vol] 0.3 mg/dL Normal 0.2-1.0 [facility] Comment on above: Performed By: #### L IVER #### [facility] [address] [place] [address] Dr. Do Aguilar Globulin (S) [Mass/Vol] 4.2 g/dL Normal [facility] Comment on above: Performed By: #### L IVER #### [facility] [address] [place] [address] Dr. Do Aguilar Protein [Mass/Vol] 7.8 g/dL Normal 6.4-8.2 [facility] Comment on above: Performed By: #### L IVER #### [facility] [address] [place] [address] Dr. Do Aguilar TSHon 02-17-2022 TSH 0.457 uIU/mL Normal 0.358-3.74 0 [facility] Comment on above: Performed By: #### T SH #### [facility] [address] [place] [address] Dr. Do Aguilar VITAMIN B12on 02-17-2022 Cobalamin (Vitamin B12) [Mass/Vol] 1864.0 pg/mL Critically high 193.0-986. 0 [facility] Comment on above: Performed By: #### V ITB12 #### [facility] [address] [place] [address] Dr. Do Aguilar History and Physicalon 12-04 History and Physical [id number]#1.[facility] Operative Report - Surgeon/P godwin 12-04-2016 Operative Report - Surgeon/Physician [id number]#1.00[facility] Coding Summaryon 11-26-2016 Coding Summary CODING DATE: 017 [facility] STATUS: Home PAYOR: Medicaid HMO ADMIT DX: REASON FOR VISIT DX: R10.13 Epigastric pain R10.11 Right upper quadrant pain FINAL DX: PRINCIPAL: K29.70 Gastritis, unspecified, without bleeding SECONDARY: PROCEDURES DOCTOR NAME DATE 24953 EsophagogastroduodenTed mena Richard MD 11/21/2016 flexible, transoral; with biopsy, single or multiple NOTE: The code number assigned matches the documented diagnosis and / or procedure in the patient's chart. However, the narrative phrase printed from the coding software may appear abbreviated, or result in slightly different terminology. Coded By: Rosalba Laureano Date Saved: 11/26/2016 01:09 pm [facility] Consent Formson 11-24-2016 Consent Forms [id number]#1.00[facility] Intraoperative Noteon 2016 Intraoperative Note [id number]#1.00[facility] Intraoperative Note [id number]#1.00[facility] Operative Report - Surgeon/P godwin 11-24-2016 Operative Report - Surgeon/Physician DATE OF PROCEDURE: 11/21/2016PREOPERATIVE DIAGNOSIS: Epigastric pain/right upper quadrant pain.POSTOPERATIVE DIAGNOSIS: Moderate gastritis.PROCEDURE PERFORMED: EGD with biopsy x1 from the antrum of the stomach forH. pylori testing.SURGEON: Juan Ramon Jean M.D.ANESTHESIA: Conscious sedation with Versed 6 mg IV, Demerol 50 mg IV.FINDINGS: As above.DISPOSITION: To the [facility] area in fair condition.INDICATIONS: The patient [...] in two weeks.Juan Ramon Jean M.D.JOB #: [id number]: 11/21/2016T: 11/21/2016[Electronically Signed on: 12/03/2016 07:09 EDT] Juan Ramon Jean MD Generated Domain User for [id number][Verified on: 12/03/2016 07:09 EDT] Juan Ramon Jean MD[Transcribed on: 11/21/2016 11:37 EDT]U [facility] Telemetry Stripson 7 Telemetry Strips [id number]#1.00OTGTIFF [facility] Telemetry Strips [id number]#1.00OTGTIFF [facility] H. Pylori Gastricon 11-22-19 17 H. Pylori Rico Int Ctrl Pass [facility] Comment on above: Order Comment: H. (A NTRUM) Result Comment: Pass Performed By: #### 2 [id number] ####[facility] (DEFAULT)[address] [place] [address] H. Pylori Gastric Negative Normal Negative [facility] Comment on above: Order Comment: H. (A NTRUM) Result Comment: Nega tive Performed By: #### 2 [id number] ####[facility] (DEFAULT)[address] [place] [address] Inpatient Clinical Summaryon 11-21-2016 Inpatient Clinical Summary [facility] SURGERYClinical Discharge SummaryPERSON INFORMATIONName KARMA SR Age 36 Years 80Sex FEMALE Language Burundian PCP HAZEL, DAVIDMarital Status Med Service Ambulatory SurgeryMRN [id number] Acct# Arrival 11/21/16 07:22:21Visit Reason EGD - EPIGASTRIC ABDOMINAL PAIN Acuity LOS 013 23:19Address:[address] [facility] [facility] [facility] [id number]:PROVIDER INFORMATIONVITALS INFORMATIONVital Sign Triage LatestTemp OralTemp Temporal 36.4 DegC 36.4 DegCTemp IntravascularTemp AxillaryTemp Sstwew45 Sat 100 % 97 %Respiratory Rate 16 [...] llow up:With: Address: When:Juan Ramon Jean [address] [place] [address] Business (1) Within 2 to 4 weeksComments:Call for follow up appointmentWith: Address: When:DOEMNICA OLIVA [address] [place] [phone] Business (1)DIAGNOSISAcute gastritisComment:PHYS DOC NOTES Normal [facility] Inpatient Patient Summaryon 11-21-2016 Inpatient Patient Summary [place] [id number] patient Discharge InstructionsName: BRENDON SR: 80 Address: [address] [place] [address] Care Provider:Name: DOMENICA OLIVAPhone: Discharge Diagnosis: Acute [...] or business decisions or sign any legal documentsOhiohealth Berger Hospital would like to thank you for allowing us to assist you with your healthcare needs. The following includes patient education materials and information regarding your injury/illness.KARMA SR has been given the following list of follow-up instructions, prescriptions, and patient education materials:Follow-up InstructionsWith: Address: When:Juan Ramon Jean [address] [place] [phone] Business (1) Within 2 to 4 weeksComments:Call for follow up appointmentWith: Address: When:DOMENICA OLIVA [address] [place] [address] Business (1)MedicationsDuring the course of your visit, [...] for Disease Control and Prevention October 2013 [facility] MAGR Endo Intraoperative Rec ordon 11-21-2016 [facility] Intraoperative Record [facility] Intra-Op Record Summary Primary Physician: Juan Ramon Jean MD Finalized Date/Time: 11/21/16 08:37:38 Pt. Name: KARMA SR/Sex: 1980 FEMALE Med Rec #: [id number] Physician: Juan Ramon Jean MD Financial #: [id number] Pt. Type: D Room/Bed: / Admit/Disch: 11/21/16 [...] Jane RN Role Performed Surgeon - Primary Insurance Sales Manager Insurance Sales Manager Time In 11/21/16 08:06:00 11/21/16 08:06:00 [...] Unfinalizing Freetext Reason for Unfinalizing 11/21/16 08:37 [facility] Normal [facility] Endo Postoperative Benjamin rdon 11-21-2016 [facility] Postoperative Record [facility] Phase II Record Summary Primary Physician: Juan Ramon Jean MD Finalized Date/Time: 11/21/16 10:02:07 Pt. Name: KARMA SR/Sex: 1980 FEMALE Med Rec #: [id number] Physician: Juan Ramon Jean MD Financial #: [id number] Pt. Type: D Room/Bed: / Admit/Disch: 11/21/16 [...] Signed By: Cammy Barroso RN 11/21/16 10:02 [facility] MAGR Endo Preoperative Recor don 11-21-2016 [facility] Endo Preoperative Record [facility] Pre-Op Record Summary Primary Physician: Juan Ramon Jean MD Finalized Date/Time: 11/21/16 08:27:58 Pt. Name: KARMA SR/Sex: 1980 FEMALE Med Rec #: [id number] Physician: Juan Ramon Jean MD Financial #: [id number] Pt. Type: D Room/Bed: / Admit/Disch: 11/21/16 [...] Signed By: Cammy Barroso RN 11/21/16 08:27 [facility] Test Urine 1on U Preg Negative [facility] Comment on above: Result Comment: Nega tive Performed By: #### [id number] ####[facility] (DEFAULT)[address] [place] [address] U Preg Internal Control Pass [facility] Comment on above: Result Comment: Pass Performed By: #### 3 [id number] ####[facility] (DEFAULT)[address] [place] [address] Vital Signs Date Time Vital Sign Value Performing Clinician Facility 01-13-2024 17:30-0500 Diastolic blood pressure 71 mm[Hg] Lisette Junior DO Work Phone: [facility] 01-13-2024 17:30-0500 Heart rate 95 /min Lisette Junior DO Work Phone: [facility] 01-13-2024 17:30-0500 SaO2% (BldA) [Mass fraction] 99 % Lisette Junior DO Work Phone: [facility] 01-13-2024 17:30-0500 Systolic blood pressure 131 mm[Hg] Lisette Junior DO Work Phone: [facility] 01-13-2024 15:30-0500 Respiratory rate 16 /min [facility] 01-13-2024 14:24-0500 Body height 160 cm Lisette Uribebal DO Work Phone: [facility] [employer] 01-13-2024 14:24-0500 Body mass index (BMI) [Ratio] 37.55 kg/m2 Lisette Junior DO [facility] [employer] 01-13-2024 14:24-0500 Body temperature 98.1 [degF] Lisette Uribebal DO Work Phone: [facility] [employer] 01-13-2024 14:24-0500 Body weight 96.16 kg Lisette Junior DO Work Phone: [facility] [employer] 10-08-2023 09:17-0400 Body height 160 cm Dwayne Khoury MD Work Phone: [facility] [employer] [facility] 10-08-2023 09:17-0400 Body mass index (BMI) [Ratio] 36.36 kg/m2 Dwayne Khoury MD Work Phone: [facility] [employer] [facility] 10-08-2023 09:17-0400 Body weight 93.1 kg Dwayne Khoury MD Work Phone: [facility] [employer] [facility] 10-08-2023 09:17-0400 Diastolic blood pressure 86 mm[Hg] Dwayne Khoury MD Work Phone: [facility] [employer] [facility] 10-08-2023 09:17-0400 Heart rate 102 /min Dwayne Khoury MD Work Phone: [facility] [employer] [facility] 10-08-2023 09:17-0400 Respiratory rate 16 /min Dwayne Khoury MD Work Phone: [facility] [employer] [facility] 10-08-2023 09:17-0400 Systolic blood pressure 145 mm[Hg] Dwayne Khoury MD Work Phone: [facility] 06-02-2023 14:32-0400 Body mass index (BMI) [Ratio] 36.67 kg/m2 Deepika Robledo MD Work Phone: [facility] 06-02-2023 14:32-0400 Body weight 93.89 kg Deepika Robledo MD Work Phone: [facility] 06-02-2023 14:32-0400 Diastolic blood pressure 102 mm[Hg] Deepika Robledo MD Work Phone: [facility] 06-02-2023 14:32-0400 Heart rate 83 /min Deepika Robledo MD Work Phone: [facility] 06-02-2023 14:32-0400 Systolic blood pressure 136 mm[Hg] Deepika Robledo MD Work Phone: [facility] 05-21-2023 11:22-0400 Body height 160.02 cm [facility] 05-21-2023 11:22-0400 Body mass index (BMI) [Ratio] 36.5 kg/m2 [facility] 05-21-2023 11:22-0400 Body weight 93.44 kg [facility] 05-21-2023 10:39-0400 Body height 160.02 cm [facility] 05-21-2023 10:39-0400 Body mass index (BMI) [Ratio] 36.5 kg/m2 [facility] 05-21-2023 10:39-0400 Body weight 93.49 kg [facility] 05-21-2023 10:39-0400 Diastolic blood pressure 77 mm[Hg] [facility] 05-21-2023 10:39-0400 Heart rate 105 /min [facility] 05-21-2023 10:39-0400 Respiratory rate 18 /min [facility] 05-21-2023 10:39-0400 SaO2% (BldA) [Mass fraction] 95 % [facility] 05-21-2023 10:39-0400 Systolic blood pressure 114 mm[Hg] [facility] 04-28-2023 11:21-0500 Body height 160 cm Gaurav Sellers PA Work Phone: [facility] [employer] [facility] 04-28-2023 11:21-0500 Body mass index (BMI) [Ratio] 36.14 kg/m2 Gaurav Sellers PA Work Phone: [facility] [employer] [facility] 04-28-2023 11:21-0500 Body weight 92.53 kg Gaurav Sellers PA Work Phone: [facility] [employer] [facility] 04-28-2023 11:21-0500 Diastolic blood pressure 82 mm[Hg] Gaurav Sellers PA Work Phone: [facility] [employer] [facility] 04-28-2023 11:21-0500 Heart rate 87 /min Gaurav Sellers PA Work Phone: [facility] [employer] 04-28-2023 11:21-0500 Respiratory rate 16 /min [facility]ellers PA [facility] 04-28-2023 11:21-0500 SaO2% (BldA) [Mass fraction] 97 % Gaurav Sellers PA Work Phone: [facility] [employer] [facility] 04-28-2023 11:21-0500 Systolic blood pressure 122 mm[Hg] Gaurav Sellers PA Work Phone: [facility] [employer] [facility] 04-20-2023 12:41-0500 Body mass index (BMI) [Ratio] 36.49 kg/m2 Shawna Rumschlag DO Work Phone: [employer] 04-20-2023 12:41-0500 Body weight 93.44 kg Shawna Rumschlag DO Work Phone: [facility] [employer] 04-20-2023 12:41-0500 Diastolic blood pressure 76 mm[Hg] Shawna Rumschlag DO Work Phone: [employer] 04-20-2023 12:41-0500 Heart rate 83 /min Shawna Rumschlag DO Work Phone: [facility] [employer] 04-20-2023 12:41-0500 Respiratory rate 16 /min Shawna Rumschlag DO Work Phone: [facility] [employer] 04-20-2023 12:41-0500 SaO2% (BldA) [Mass fraction] 98 % Shawna Rumschlag DO Work Phone: [facility] [employer] 04-20-2023 12:41-0500 Systolic blood pressure 129 mm[Hg] Shawna Rumschlag DO Work Phone: [facility] [employer] 04-20-2023 12:39-0500 Body temperature 97.3 [degF] Shawna Rumschlag DO Work Phone: [facility] [employer] 03-18-2023 11:30-0500 Diastolic blood pressure 84 mm[Hg] MD Yo Blank Work Phone: [facility] 03-18-2023 11:30-0500 Heart rate 95 /min MD Yo Blank Work Phone: [facility] 03-18-2023 11:30-0500 Respiratory rate 16 /min MD Yo Blank Work Phone: [facility] 03-18-2023 11:30-0500 SaO2% (BldA) [Mass fraction] 99 % MD Yo Blank Work Phone: [facility] 03-18-2023 11:30-0500 Systolic blood pressure 123 mm[Hg] MD Yo Blank Work Phone: [facility] 03-05-2023 09:15-0500 Body height 160.02 cm Gayathri Adams Other [employer] Other 03-05-2023 09:15-0500 Body mass index (BMI) [Ratio] 37.57 kg/m2 Gayathri Scally Other [employer] Other 03-05-2023 09:15-0500 Body weight 96.21 kg Gayathri Scally Other [employer] Other 03-05-2023 09:15-0500 Diastolic blood pressure 89 mm[Hg] Gayathri Scally Other [employer] Other 03-05-2023 09:15-0500 Respiratory rate 18 /min Gayathri Scally Other [employer] Other 03-05-2023 09:15-0500 SaO2% (BldA) [Mass fraction] 96 % Gayathri Scally Other [employer] Other 03-05-2023 09:15-0500 Systolic blood pressure 122 mm[Hg] Gayathri Scally Other [employer] Other 03-02-2023 19:24-0500 Body height 160 cm Sil Sullivan DO Work Phone: [employer] 03-02-2023 19:24-0500 Body mass index (BMI) [Ratio] 36.31 kg/m2 Sil Sullivan DO Work Phone: [employer] 03-02-2023 19:24-0500 Body temperature 98.29 [degF] Sil Sullivan DO Work Phone: [employer] 03-02-2023 19:24-0500 Body weight 92.99 kg Sil Sullivan DO Work Phone: [employer] 03-02-2023 19:24-0500 Diastolic blood pressure 98 mm[Hg] Sil Sullivan DO Work Phone: [employer] 03-02-2023 19:24-0500 Heart rate 82 /min Sil Sullivan DO Work Phone: [employer] 03-02-2023 19:24-0500 Respiratory rate 18 /min Sil Sullivan DO Work Phone: [employer] 03-02-2023 19:24-0500 SaO2% (BldA) [Mass fraction] 98 % Sil Sullivan DO Work Phone: [employer] 03-02-2023 19:24-0500 Systolic blood pressure 139 mm[Hg] Sil Sullivan DO Work Phone: [employer] 02-05-2023 09:20-0500 Body height 160.02 cm Jan Garg Other [employer] Other 02-05-2023 09:20-0500 Body mass index (BMI) [Ratio] 36.66 kg/m2 Jan Garg Other [employer] Other 02-05-2023 09:20-0500 Body weight 93.9 kg Jan Garg Other [employer] Other 01-15-2023 09:45-0500 Body height 160.02 cm Gayathri Scally Other [employer] Other 01-15-2023 09:45-0500 Body mass index (BMI) [Ratio] 36.68 kg/m2 Gayathri Scally Other [employer] Other 01-15-2023 09:45-0500 Body weight 93.94 kg Gayathri Scally Other [employer] Other 01-15-2023 09:45-0500 Diastolic blood pressure 83 mm[Hg] Gayathri Scally Other [employer] Other 01-15-2023 09:45-0500 Respiratory rate 18 /min Gayathri Adams Other [employer] Other 01-15-2023 09:45-0500 SaO2% (BldA) [Mass fraction] 99 % Gayathri Adams Other [employer] Other 01-15-2023 09:45-0500 Systolic blood pressure 119 mm[Hg] Gayathri Barahonaly Other [employer] Other 01-07-2023 10:00-0500 Body height 160.02 cm aJn Garg Other [employer] Other 01-07-2023 10:00-0500 Body mass index (BMI) [Ratio] 36.13 kg/m2 Jan Garg Other [employer] Other 01-07-2023 10:00-0500 Body weight 92.53 kg Jan Covingtonner Other [employer] Other 01-07-2023 10:00-0500 Diastolic blood pressure 74 mm[Hg] Jan Scovanner Other [employer] Other 01-07-2023 10:00-0500 Systolic blood pressure 118 mm[Hg] Jan Scovanner Other [employer] Other 08-28-2022 09:00-0400 Body height 160.02 cm Tamar Sosa Other [employer] Other 08-28-2022 09:00-0400 Body mass index (BMI) [Ratio] 35.8 kg/m2 Tamar Fitt Other [employer] Other 08-28-2022 09:00-0400 Body weight 91.67 kg Tamar Fitt Other [employer] Other 07-29-2022 10:15-0400 Body height 160.02 cm Gayathri Scally Other [employer] Other 07-29-2022 10:15-0400 Body mass index (BMI) [Ratio] 35.18 kg/m2 Gayathri Scally Other [employer] Other 07-29-2022 10:15-0400 Body weight 90.08 kg Gayathri Scally Other [employer] Other 07-29-2022 10:15-0400 Diastolic blood pressure 84 mm[Hg] Gayathri Scally Other [employer] Other 07-29-2022 10:15-0400 Respiratory rate 18 /min Gayathri Scally Other [employer] Other 07-29-2022 10:15-0400 SaO2% (BldA) [Mass fraction] 99 % Gayathri Scally Other [employer] Other 07-29-2022 10:15-0400 Systolic blood pressure 127 mm[Hg] Gayathri Scally Other [employer] Other 05-20-2022 11:15-0400 Body height 160.02 cm Gayathri Scally Other [employer] Other 05-20-2022 11:15-0400 Body mass index (BMI) [Ratio] 34.52 kg/m2 Gayathri Scally Other [employer] Other 05-20-2022 11:15-0400 Body weight 88.41 kg Gayathri Scally Other [employer] Other 05-20-2022 11:15-0400 Diastolic blood pressure 82 mm[Hg] Gayathri Scally Other [employer] Other 05-20-2022 11:15-0400 Respiratory rate 18 /min Gayathri Scally Other [employer] Other 05-20-2022 11:15-0400 SaO2% (BldA) [Mass fraction] 97 % Gayathri Scally Other [employer] Other 05-20-2022 11:15-0400 Systolic blood pressure 121 mm[Hg] Gayathri Scally Other [employer] Other 04-08-2022 11:15-0500 Body height 160.02 cm Gayathri Scally Other [employer] Other 04-08-2022 11:15-0500 Body mass index (BMI) [Ratio] 34.49 kg/m2 Gayathri Scally Other [employer] Other 04-08-2022 11:15-0500 Body weight 88.32 kg Gayathri Scally Other [employer] Other 04-08-2022 11:15-0500 Diastolic blood pressure 77 mm[Hg] Gayathri Scally Other [employer] Other 04-08-2022 11:15-0500 Respiratory rate 18 /min Gayathri Scally Other [employer] Other 04-08-2022 11:15-0500 SaO2% (BldA) [Mass fraction] 98 % Gayathri Scally Other [employer] Other 04-08-2022 11:15-0500 Systolic blood pressure 110 mm[Hg] Gayathri Scally Other [employer] Other 04-08-2022 10:15-0500 Body height 160.02 cm Tamar Fitt Other [employer] Other 04-08-2022 10:15-0500 Body mass index (BMI) [Ratio] 34.49 kg/m2 Tamar Fitt Other [employer] Other 04-08-2022 10:15-0500 Body weight 88.32 kg Tamar Fitt Other [employer] Other 02-26-2022 10:00-0500 Body height 160.02 cm Tamar Fitt Other [employer] Other 02-25-2022 11:45-0500 Body height 160.02 cm Gayathri Scally Other [employer] Other 02-25-2022 11:45-0500 Body mass index (BMI) [Ratio] 36.63 kg/m2 Gayathri Scally Other [employer] Other 02-25-2022 11:45-0500 Body weight 93.8 kg Gayathri Scally Other [employer] Other 02-25-2022 11:45-0500 Diastolic blood pressure 78 mm[Hg] Gayathri Scally Other [employer] Other 02-25-2022 11:45-0500 Respiratory rate 18 /min Gayathri Scally Other [employer] Other 02-25-2022 11:45-0500 SaO2% (BldA) [Mass fraction] 97 % Gayathri Scally Other [employer] Other 02-25-2022 11:45-0500 Systolic blood pressure 109 mm[Hg] Gayathri Scally Other [employer] Other 01-14-2022 11:45-0500 Body height 160.02 cm Gayathri Scally Other [employer] Other 01-14-2022 11:45-0500 Body mass index (BMI) [Ratio] 39.37 kg/m2 Gayathri Scally Other [employer] Other 01-14-2022 11:45-0500 Body weight 100.84 kg Gayathri Scally Other [employer] Other 01-14-2022 11:45-0500 Diastolic blood pressure 88 mm[Hg] Gayathri Scally Other [employer] Other 01-14-2022 11:45-0500 Respiratory rate 18 /min Gayathri Scally Other [employer] Other 01-14-2022 11:45-0500 SaO2% (BldA) [Mass fraction] 97 % Gayathri Scally Other [employer] Other 01-14-2022 11:45-0500 Systolic blood pressure 124 mm[Hg] Gayathri Scally Other [employer] Other 12-04-2021 12:00-0400 Body height 160.02 cm Gayathri Scally Other [employer] Other 12-04-2021 12:00-0400 Body mass index (BMI) [Ratio] 39.73 kg/m2 Gayathri Scally Other [employer] Other 12-04-2021 12:00-0400 Body weight 101.74 kg Gayathri Scally Other [employer] Other 12-04-2021 12:00-0400 Diastolic blood pressure 74 mm[Hg] Gayathri Scally Other [employer] Other 12-04-2021 12:00-0400 Respiratory rate 18 /min Gayathri Scally Other [employer] Other 12-04-2021 12:00-0400 SaO2% (BldA) [Mass fraction] 95 % Gayathri Scally Other [employer] Other 12-04-2021 12:00-0400 Systolic blood pressure 110 mm[Hg] Gayathri Scally Other [employer] Other 10-29-2021 11:30-0400 Body height 160.02 cm Yo Blank Other [employer] Other 10-29-2021 11:30-0400 Body mass index (BMI) [Ratio] 38.61 kg/m2 Yo Blank Other [employer] Other 10-29-2021 11:30-0400 Body weight 98.88 kg Yo Blank Other [employer] Other 10-29-2021 11:30-0400 Diastolic blood pressure 74 mm[Hg] Yo Blank Other [employer] Other 10-29-2021 11:30-0400 Systolic blood pressure 111 mm[Hg] Yo Blank Other [employer] Other 10-22-2021 13:26-0400 Body temperature 97.2 [degF] Shwana Rumschlag DO Work Phone: [employer] 10-22-2021 13:26-0400 Diastolic blood pressure 71 mm[Hg] Shawna Rumschlag DO Work Phone: [employer] 10-22-2021 13:26-0400 Heart rate 85 /min Shawna Rumschlag DO Work Phone: [employer] 10-22-2021 13:26-0400 Respiratory rate 16 /min Shawna Rumschlag DO Work Phone: [employer] 10-22-2021 13:26-0400 SaO2% (BldA) [Mass fraction] 94 % Shawna Rumschlag DO Work Phone: [employer] 10-22-2021 13:26-0400 Systolic blood pressure 131 mm[Hg] Shawna Rumschlag DO Work Phone: [employer] 10-11-2021 23:48-0400 Body height 160 cm Daniel Adkins MD Work Phone: [facility] [employer] 10-11-2021 23:48-0400 Body mass index (BMI) [Ratio] 36.67 kg/m2 Daniel Adkins MD Work Phone: [facility] [employer] 10-11-2021 23:48-0400 Body temperature 98.6 [degF] Daniel Adkins MD Work Phone: [facility] [employer] 10-11-2021 23:48-0400 Body weight 93.89 kg Daniel Adkins MD Work Phone: [employer] 10-11-2021 23:48-0400 Diastolic blood pressure 88 mm[Hg] Daniel Adkins MD Work Phone: [employer] 10-11-2021 23:48-0400 Heart rate 97 /min Daniel [facility]kins MD [facility] 10-11-2021 23:48-0400 Respiratory rate 16 /min Daniel Adkins MD Work Phone: [facility] [employer] 10-11-2021 23:48-0400 SaO2% (BldA) [Mass fraction] 96 % Daniel Adkins MD Work Phone: [facility] [employer] 10-11-2021 23:48-0400 Systolic blood pressure 134 mm[Hg] Daniel Adkins MD Work Phone: [facility] [employer] Encounters Encounter Date Encounter Type Care Provider Facility Start: 02-01-2024 End: 02-01-2024 ambulatory Ugo Bourgeois MD Facility:[facility] Start: 01-26-2024 End: 01-26-2024 ambulatory LORETO MCNEAL [facility] Start: 01-26-2024 End: 01-26-2024 Subsequent hospital visit by physician Tamar Silveira PT [facility] Comment on above: Arrived Start: 01-13-2024 End: 01-13-2024 Emergency department patient visit Lisette Junior Work Phone: [facility] ED Comment on above: Dizziness (Primary D x) Start: 01-11-2024 End: 01-11-2024 ambulatory Ugo Bourgeois MD Facility:[facility] Start: 12-29-2023 End: 12-29-2023 Subsequent hospital visit by physician Tamar Silveira PT [facility] Start: 12-21-2023 End: 12-21-2023 ambulatory CARMEN [facility] Start: 12-15-2023 End: 12-15-2023 [facility] Start: 12-01-2023 End: 12-01-2023 [facility] Start: 11-30-2023 End: 11-30-2023 ambulatory AMENA GARNER Not Available Start: 11-17-2023 End: 11-17-2023 [facility] Start: 11-17-2023 End: 11-17-2023 Subsequent hospital visit by physician Tamar Silveira PT [facility] Physical Therapy Comment on above: Arrived Start: 11-16-2023 End: 11-16-2023 ambulatory Ugo Bourgeois MD Facility:[facility] Start: 10-20-2023 End: 10-20-2023 ambulatory SHAWNA MCFADDEN [facility] Start: 10-20-2023 End: 10-20-2023 Subsequent hospital visit by physician Jan Olmstead PT [facility] Therapy Comment on above: Arrived Start: 10-08-2023 End: 10-08-2023 Office outpatient new 30 minutes Dwayne Khoury MD [facility] Comment on above: Macromastia (Primary Dx) Start: 10-08-2023 End: 10-08-2023 ambulatory DWAYNE KHOURY [facility] Start: 10-06-2023 End: 10-07-2023 Emergency department patient visit NAVEEN DANIEL [facility] Start: 10-05-2023 End: 10-05-2023 Emergency department patient visit NAVEEN SANCHEZ [facility] Start: 10-05-2023 End: 10-05-2023 Emergency department patient visit [facility] Start: 09-22-2023 End: 09-22-2023 Subsequent hospital visit by physician Jan Olmstead PT [facility] Start: 09-15-2023 End: 09-15-2023 ambulatory [facility] BOGDAN [facility] Start: 09-07-2023 End: 09-07-2023 ambulatory SHAWNA RUMNAFISAG [facility] Start: 09-01-2023 End: 09-01-2023 ambulatory SHAWNA BOGDAN [facility] Start: 08-26-2023 End: 08-26-2023 ambulatory SHAWNA EDWARG [facility] Start: 08-26-2023 End: 08-26-2023 Subsequent hospital visit by physician Kofi Villegas PT [facility] Physical Therapy Comment on above: Arrived Start: 08-21-2023 End: 08-21-2023 ambulatory SHAWNA BOGDAN [facility] Start: 08-21-2023 End: 08-21-2023 Subsequent hospital visit by physician Jan Olmstead PT [facility] Physical Therapy Comment on above: Arrived Start: 08-13-2023 End: 08-13-2023 ambulatory LAILA LIEBERMAN Not Available Start: 08-11-2023 End: 08-11-2023 ambulatory SHAWNA BOGDAN [facility] Start: 08-11-2023 End: 08-11-2023 Subsequent hospital visit by physician Jan Olmstead PT [facility] Physical Therapy Comment on above: Arrived Start: 08-04-2023 End: 08-04-2023 ambulatory SHAWNA RUMSCHLAG [facility] Start: 07-29-2023 End: 07-29-2023 ambulatory SHAWNA RUMSCHELIZABETHG [facility] Start: 07-14-2023 End: 07-14-2023 Subsequent hospital visit by physician Rebecca Skinner PT [facility] Start: 07-07-2023 End: 07-07-2023 ambulatory SHAWNA RUMSCHLAG [facility] Start: 06-30-2023 End: 06-30-2023 ambulatory SHAWNA EDWARG [facility] Start: 06-17-2023 End: 06-17-2023 ambulatory SHAWNA RUMNAFISAG [facility] Start: 06-16-2023 End: 06-16-2023 ambulatory SHAWNA BOGDAN [facility] Start: 06-04-2023 End: 06-04-2023 ambulatory SHAWNA RUMNAFISAG [facility] Start: 06-03-2023 End: 06-03-2023 [facility] Start: 06-02-2023 End: 06-02-2023 Office outpatient new 30 minutes Deepika Robledo MD Work Phone: [facility] Comment on above: Mass of upper outer quadrant of right breast (Primary Dx); Abnormal mammogram; Symptomatic mammary hypertrophy Start: 06-02-2023 End: 06-02-2023 ambulatory DEEPIKA ROBLEDO [facility] Start: 06-02-2023 [facility] Start: 05-25-2023 End: 05-25-2023 ambulatory ALICIA GAUTHIERO Not Available Start: 05-21-2023 End: 05-21-2023 Patient encounter procedure [facility] Work Phone: Start: 05-21-2023 End: 05-21-2023 Patient encounter procedure [facility] Work Phone: Start: 05-20-2023 End: 05-20-2023 ambulatory SHAWNA BOGDAN [facility] Start: 05-19-2023 End: 05-19-2023 ambulatory SHAWNA EDWARG [facility] Start: 05-12-2023 Telephone encounter Deepika Robledo MD Work Phone: [facility] Start: 05-06-2023 End: 05-06-2023 ambulatory SHAWNA RUMSCHLAG [facility] Start: 05-06-2023 End: 05-06-2023 Subsequent hospital visit by physician Rojas Altamirano PTA [facility] Comment on above: Arrived Start: 05-05-2023 End: 05-05-2023 [facility] Start: 04-30-2023 Refill Maty Fulton RN [facility] Start: 04-28-2023 End: 04-28-2023 ambulatory GAURAV SELLERS [facility] Start: 04-28-2023 End: 04-28-2023 Office outpatient visit 25 minutes Gaurav Sellers PA Work Phone: [facility] Comment on above: 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 (Primary Dx) Start: 04-21-2023 End: 04-21-2023 ambulatory [facility] Start: 04-20-2023 End: 04-20-2023 Emergency department patient visit [facility] ED Comment on above: Closed head injury, initial encounter (Primary Dx); Fall due to slipping on ice or snow, initial encounter; Acute cervical myofascial strain, initial encounter Start: 04-16-2023 ambulatory Myrtle Cerna Facility: [facility] Start: 04-07-2023 End: 04-07-2023 ambulatory [facility] Start: 03-31-2023 Refill Patricia Clay RN [facility] Start: 03-27-2023 End: 03-27-2023 ambulatory PETE SILVER [facility] Start: 03-24-2023 End: 03-24-2023 ambulatory [facility] Start: 03-19-2023 End: 03-19-2023 ambulatory GABY JUNE Not Available Start: 03-18-2023 Telephone encounter Jan Peterson [facility] Start: 03-18-2023 End: 03-18-2023 ambulatory NON STAFF [facility] Other Start: 03-18-2023 Non-patient / Non-visit MD Yo Blank Work Phone: [facility] Work Phone: Start: 03-17-2023 End: 03-17-2023 ambulatory Jan Garg Other [facility] Other Start: 03-17-2023 Telephone encounter Jan Garg [facility] Start: 03-16-2023 Encounter for genera l adult medical examination without abnormal findings [facility] Start: 03-16-2023 End: 03-16-2023 ambulatory RORY [facility] Start: 03-16-2023 End: 03-16-2023 ambulatory LULY ENGLISH Not Available Start: 03-10-2023 End: 03-10-2023 ambulatory [facility] Start: 03-10-2023 End: 03-10-2023 Subsequent hospital visit by physician Tamar Silveira PT [facility] Comment on above: Arrived Start: 03-05-2023 (FCCCWMNF/U) Weight Management f/[facility]ri [facility] Start: 03-05-2023 End: 03-05-2023 ambulatory [facility] Other Start: 03-05-2023 Registered Recurring MD Monserrat Blank Work Phone: [facility] Work Phone: Start: 03-02-2023 End: 03-02-2023 Emergency department patient visit Sil Sullivan DO Work Phone: [facility] Comment on above: Constipation, unspec ified constipation type (Primary Dx) Start: 02-26-2023 End: 02-26-2023 ambulatory Jan Garg Other [facility] Other Start: 02-26-2023 Telephone encounter Jan Peterson [facility] Start: 02-20-2023 Telephone encounter Argenis Storm RN [facility] Comment on above: Medication, DME Start: 02-18-2023 End: 02-18-2023 ambulatory Jan Garg Other [employer] Other Start: 02-18-2023 Telephone encounter Jan Peterson [facility] Start: 02-10-2023 Telephone encounter Margaux Olea [facility] Start: 02-05-2023 End: 02-05-2023 ambulatory Jan Garg Other [employer] Other Start: 02-05-2023 Office outpatient visit 15 minutes Jan Garg [facility] Start: 01-15-2023 [facility] Weight Management f/u Gayathri Adams [facility] Start: 01-15-2023 End: 01-15-2023 ambulatory Gayathri Adams Other [employer] Other Start: 01-07-2023 End: 01-07-2023 ambulatory Jan Garg Other [employer] Other Start: 01-07-2023 Office outpatient visit 15 minutes Jan Garg [facility] Start: 09-25-2022 End: 01-16-2023 ambulatory BARREL LINER YUE GRANADO Facility:[facility] Start: 09-25-2022 End: 01-15-2023 Recurring YUE GRANADO [facility] Start: 09-17-2022 End: 09-17-2022 ambulatory Gayathri Adams Other [employer] Other Start: 09-17-2022 Telephone encounter Gayathri last [facility] Start: 08-28-2022 ([facility] RD FU) [facility] 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 Tamar Sosa [facility] Start: 08-28-2022 End: 08-28-2022 ambulatory Tamar Sosa Other [employer] Other Start: 07-29-2022 ([facility]) Weight Management f/u Gayathri Angie [facility] Start: 07-29-2022 End: 07-29-2022 ambulatory Gayathri Brooklynludy Other [employer] Other Start: 05-20-2022 ([facility]) Weight Management f/u Gayathri Adams [facility] Start: 05-20-2022 End: 05-20-2022 ambulatory Gayathri Adams Other [employer] Other Start: 05-19-2022 End: 05-19-[address] ALICIA PRESTON . Facility:[facility] Start: 05-07-2022 End: 05-08-[address] DOCTOR ARREOLA Facility:[facility] Start: 04-09-2022 End: 04-09-2022 ambulatory Gayathri Brooklynludy Other [employer] Other Start: 04-09-2022 Telephone encounter Gayathri [place] [facility] Start: 04-08-2022 ([facility] WMNI) WMN Initial Provider Tamar Sosa [facility] Start: 04-08-2022 ([facility]) Weight Management f/u Gayathri Angie [facility] Start: 04-08-2022 End: 04-08-2022 ambulatory Tamar Sosa Other [employer] Other Start: 02-26-2022 End: 02-26-2022 ambulatory Tamar Sosa Other [employer] Other Start: 02-26-2022 IBT FOR OBESITY GROU P 2-10 30M Tamar Jackkhalif [facility] Start: 02-25-2022 ([facility]) Weight Management f/u Gayathrikasia Adams [facility] Start: 02-25-2022 End: 02-25-2022 ambulatory Gayathri Adams Other [employer] Other Start: 02-17-2022 End: 02-18-2022 ambulatory RORY DRIVER Facility:[facility] Start: 01-29-2022 End: 01-30-2022 ambulatory JOY Reis [facility] Facility:[facility] Start: 01-14-2022 ([facility]) Weight Management f/u Gayathri Adams [facility] Start: 01-14-2022 End: 01-14-2022 ambulatory Gayathri Adams Other [employer] Other Start: 12-05-2021 End: 12-05-2021 ambulatory Gayathri Adams Other [employer] Other Start: 12-05-2021 Telephone encounter Gayathri [facility] Start: 12-04-2021 End: 12-04-2021 ambulatory Gayathri Adams Other [employer] Other Start: 12-04-2021 Nutrition therapy Gayathrikasia Adams [facility] Start: 10-29-2021 End: 10-29-2021 ambulatory Yo Blank Other [employer] Other Start: 10-29-2021 Patient encounter procedure Yo Blank [facility] Start: 10-22-2021 End: 10-22-2021 Emergency department patient visit Shawna Mcfadden DO Work Phone: [facility] Comment on above: Acute diffuse otitis externa of left ear (Primary Dx) Start: 10-11-2021 End: 10-12-2021 Emergency department patient visit Daniel Adkins MD Work Phone: [facility] Comment on above: Pilonidal cyst (Prim romero Dx) Start: 11-21-2016 End: 11-26-2016 Ambulatory [facility] Facility:[facility] Procedures Date Procedure Procedure Detail Performing [...] w/ o contrast material Precious 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 - [employer] Work Phone: Start: 04-20-2023 Ct head/brain w/o co ntrast material Precious 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 - [employer] Work Phone: Start: 05-02-2022 Microalbumin [Mass/v olume] in Urine by Test strip Patricia Clay RN Start: 05-02-2020 Adult depression scr eening assessment Argenis Storm RN Start: 08-30-2016 Cholecystectomy YUE JESSICA TERPablo Start: 01-03-2013 nasal surgery YUE ALVARENGA RS Tonsillectomy YUE GRANADO Plan of Treatment Date Care Activity Detail Author Start: 05-24-2026 Screening for malignant neoplasm of cervix Pap Smear [facility] [employer] Start: 03-16-2025 Screening for malignant neoplasm of breast Breast cancer screen [facility] Start: 11-10-2024 End: 11-10-2024 Patient encounter procedure 11/10/2024 11:30 AM EDT Office Visit [facility] [address] [place] [address] Karen Cotter, 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 - [employer] [address] [place] [phone] 1 year KUB [facility] Part [facility] Comment on above: 1 year KUB Start: 10-07-2024 Adult BMI Screening Adult BMI Screen ing [facility] Start: 10-07-2024 Tobacco Screening Tobacco Screening [facility] Start: 06-01-2024 Adult BMI Screening Adult BMI Screen ing [facility] Start: 04-28-2024 Adult BMI Screening Adult BMI Screen ing [facility] Start: 04-28-2024 Tobacco Screening Tobacco Screening [facility] Start: 03-16-2024 Adult BMI Screening Adult BMI Screen ing [facility] Start: 02-09-2024 End: 02-09-2024 Patient encounter procedure 02/09/2024 11:[address] [facility] [address] [facility] [address] [place] [phone] Tamar Silveira, PT dry needling [facility] Comment on above: dry needling Start: 02-09-2024 ambulatory Ambulatory [facility] Start: 02-08-2024 End: 02-08-2024 Patient encounter procedure 02/08/2024 1:45 PM EST Appointment [facility] [address] [facility] [place] [phone] Chepe Ingram MD [address] [place] [address] [facility] Start: 01-30-2024 Adult BMI Screening Adult BMI Screen ing [facility] Start: 01-30-2024 Tobacco Screening Tobacco Screening [facility] Start: 01-26-2024 End: 01-26-2024 Patient encounter procedure 01/26/2024 8:[address] [facility] [address] [place] [address] Tamar Silveira, PT dry needling [facility] Comment on above: dry needling Start: 01-13-2024 End: 01-13-2024 Patient encounter procedure 01/13/2024 8:15 AM EST Office Visit [facility] Part [facility] [address] [place] [address] Georges Valencia, PA-C [address] [facility] [address] [place] [address] incontin[facility] Comment on above: incontinence Start: 12-29-2023 End: 12-29-2023 Patient encounter procedure 12/29/2023 9:[address] [facility] [address] [place] [phone] Tamar Silveira, PT NEEDLING [facility] Comment on above: NEEDLING Start: 12-15-2023 End: 12-15-2023 Patient encounter procedure 12/15/2023 9:[address] [facility] [address] [place] [phone] Tamar Silveira, PT NEEDLING [facility] Therapy Comment on above: NEEDLING Start: 12-01-2023 End: 12-01-2023 Patient encounter procedure 12/01/2023 9:[address] [facility] [address] [place] [phone] Tamar Silveira, PT NEEDLING [facility] Comment on above: NEEDLING Start: 11-01-2023 Influenza vaccination Influenza Vacc ine [facility] Start: 10-08-2023 End: 10-08-2023 Patient encounter procedure 10/08/2023 9:00 AM EDT Office Visit [facility] [address] [facility] [place] [address] Dwayne Khoury MD [address] [facility] [place] [address] [facility] Start: 10-01-2023 Influenza vaccination Flu vaccine (# 1) [facility] Start: 09-01-2023 End: 09-01-2023 Patient encounter procedure 09/01/2023 10:[address] [facility] [address] [place], [place] [phone] Osito Rowan [facility] Start: 08-26-2023 End: 08-26-2023 Patient encounter procedure 08/26/2023 2:[address] [facility] [address] [place], [place] [phone] Kofi Villegas, PT [facility] Start: 08-18-2023 End: 08-18-2023 Patient encounter procedure 08/18/2023 9:[address] [facility] [address] [place], [place] [phone] Osito Rowan [facility] Start: 08-11-2023 End: 08-11-2023 Patient encounter procedure 08/11/2023 1:[address] [facility] [address] [place], [place] [phone] Jan Olmstead, PT DRY NEEDLING [facility] Therapy Comment on above: DRY NEEDLING Start: 08-04-2023 End: 08-04-2023 Patient encounter procedure 08/04/2023 4:[address] [facility] [address] [place], [place] [phone] Osito Rowan [facility] Start: 06-03-2023 End: 06-03-2023 Patient encounter procedure 06/03/2023 3:[address] [facility] [address] [place] [phone] [facility] Start: 06-02-2023 End: 06-02-[address] [facility] Comment on above: DRY NEEDLING- jd gibson coordinates with son's appt Start: 05-23-2023 Hepatitis B vaccine (3 of 3 - Hep B Twinrix 3-dose series) Hepatitis B vaccine (3 of 3 - Hep B Twinrix 3-dose series) [facility] Start: 05-20-2023 End: 05-20-2023 Patient encounter procedure 05/20/2023 3:[address] [facility] [address] [place] [phone] [address] [facility] Start: 05-19-2023 End: 05-19-2023 Patient encounter procedure 05/19/2023 12:[address] [facility] [address] [place] [phone] Rebecca Skinner, PT DRY NEEDLING- dont move coordinates with son's apptDRY NEEDLING [facility] Comment on above: DRY NEEDLING- dont m ove coordinates with son's apptDRY NEEDLING Start: 05-05-2023 End: 05-05-[address] [facility] Comment on above: DRY NEEDLING DRY NEEDLING- dont m ove coordinates with son's appt Start: 05-03-2023 Urine screening for protein Urine Microalbumin [facility] Start: 04-28-2023 End: 04-28-2023 Patient encounter procedure 04/28/2023 10:45 AM EST Office Visit [facility] [address] [place] [phone] Gaurav Sellers, PA [address] [place] [address] [facility] Start: 04-21-2023 End: 04-21-[address] [facility] Comment on above: DRY NEEDLING DRY NEEDLING- dont m ove coordinates with son's appt Start: 04-07-2023 End: 04-07-2023 Patient encounter procedure 04/07/2023 2:[address] [facility] [address] [place] [phone] Rebecca Skinner, PT DRY NEEDLING [facility] Therapy Comment on above: DRY NEEDLING Start: 03-27-2023 End: 03-27-2023 Admission to same day surgery center 03/27/2023 1:27 PM EST - 03/27/2023 1:33 PM EST Surgery [facility] [address] [place] [address] Pete Silver MD [address] [place] [address] INJECTION BLOCK SACROILIAC JOINT [53853 (CPT )] [facility] Procedures Comment on above: INJECTION BLOCK SACR OILIAC JOINT [36333 (CPT )] Start: 03-27-2023 End: 03-27-2023 Inject si joint arthrgrphy&/anes/stero id w/monika INJECTION BLOCK SACROILIAC JOINT Disorder of sacrum 03/27/2023 1:27 PM EST [facility] Start: 03-27-2023 Subsequent hospital visit by physician 03/27/2023 1:27 PM EST Hospital Encounter [facility] - Pain Procedures [address] [place] [id number] Pete Silver MD [address] [place] [address] [facility] - [facility] Procedures Start: 03-24-2023 End: 03-24-2023 Patient encounter procedure 03/24/2023 2:[address] [facility] Physical Therapy [address] [place] [id number] Rebecca Skinner, PT DRY NEEDLING [facility] Physical Therapy Comment on above: DRY NEEDLING Start: 03-19-2023 [facility] Start: 03-16-2023 End: 03-16-2023 Patient encounter procedure 03/16/2023 11:45 AM EST Appointment [facility] - Mammogram DEXA [address] [place] [phone] [facility] - Mammogram DEXA Start: 03-10-2023 End: 03-10-2023 Patient encounter procedure 03/10/2023 2:[address] [facility] [address] [place], [place] [id number] Rebecca Skinner PT [facility] Start: 09-30-2022 Influenza vaccination Flu vaccine (# 1) [facility] Start: 10-31-2021 Influenza vaccination [facility] Start: 09-03-2021 DTaP,Tdap and Td Vaccines (1 - Tdap) DTaP,Tdap and Td Vaccines (1 - Tdap) [facility] Start: 09-03-2021 DTaP/Tdap/Td vaccine (1 - Tdap) DTaP/Tdap/Td vaccine (1 - Tdap) [facility] Start: 05-02-2021 Depression Screening Depression Scre [facility] Start: 2020 Lipid panel Lipids [facility] [employer] Start: 01-04-2020 Diabetic foot examination Diabetic Foot Exam [facility] Start: 09-25-2015 Diabetes screen Diabetes screen [facility] Start: 2010 Screening for malignant neoplasm of cervix [facility] Start: 2001 Screening for malignant neoplasm of cervix Pap smear [facility] Start: 09-25-1999 DTaP/Tdap/Td vaccine (1 - Tdap) DTaP/Tdap/Td vaccine (1 - Tdap) [facility] Start: 1998 Adult BMI Follow Up Plan Adult BMI Follow Up Plan [facility] Start: 1998 Hepatitis C screening Hepatitis C sc reen [facility] Start: 09-25-1995 HIV screening HIV screen [facility] [employer] Start: 1993 Varicella vaccine (1 of 2 - 13+ 2-dose series) Varicella vaccine (1 of 2 - 13+ 2-dose series) [facility] Start: 1992 Depression Screen Depression Screen [facility] Start: 1992 Depression Screening Depression Scre ening [facility] Start: 1990 Lipid panel Lipids [facility] Start: 1981 Varicella vaccine (1 of 2 - 2-dose childhood series) Varicella vaccine (1 of 2 - 2-dose childhood series) [facility] Start: 03-27-1981 COVID-19 Vaccine (#1) COVID-19 Vacci ne (#1) [facility] Start: 1980 Glaucoma screening Diabetic Op hthalmology Exam [facility] Start: 1980 Hepatitis B vaccine (1 of 3 - 3-dose series) Hepatitis B vaccine (1 of 3 - 3-dose series) [facility] EKG 12 Lead EKG 12 Lead ECG Routine 01/13/2024 2:59 PM EST [facility] Inject si joint arthrgrphy&/anes/stero id w/monika INJECTION BLOCK SACROILIAC JOINT Disorder of sacrum [facility] Njx dx/ther agt pvrt facet jt lmbr/sac 1 level INJECTION BLOCK NERVE MEDIAL BRANCH Lumbosacral spondylosis without myelopathy [facility] Immunizations Immunization Date Immunization Notes Care Provider Fa cili 12-22-2022 influenza virus vaccine, unspecified formulation Deepika Robledo MD Work Phone: [facility] 12-19-2018 influenza, injectabl e, quadrivalent, preservative free Argenis Storm RN [facility] 12-02-2017 influenza, injectabl e, quadrivalent, preservative free Argenis Storm RN [facility] 12-02-2017 pneumococcal conjuga te vaccine, 13 valent Argenis Storm RN [facility] 10-10-2016 influenza virus vaccine, unspecified formulation Argenis Storm RN [facility] 12-19-2013 influenza virus vaccine, live, attenuated, for intranasal use Argenis Storm RN [facility] 12-03-2012 influenza virus vaccine, whole virus Argenis Storm RN [facility] 12-29-2011 influenza virus vaccine, whole virus Argenis Storm RN [facility] 12-23-2010 influenza virus vaccine, whole virus Argenis Storm RN [facility] 12-18-2008 influenza virus vaccine, whole virus Argenis Storm RN [facility] Payers Date Payer Category Payer Unknown 2021 Self-pay [id number] 2002 Medicaid [place] [employer] [place] [employer] [id number] 2002-Present [phone] [address] [place] [address] [id number] 2002 Medicaid HMO [place] [id number] 1980 Unknown [id number] 2.16.840.1.825330.3.579.2.593 1980 Unknown [id number] 2.16.840.1.665012.3.579.2.593 1980 Unknown [id number] 2.16.840.1.654788.3.579.2.593 1980 Unknown [id number] 2.16.840.1.091386.3.579.2.593 1980 Unknown [id number] 2.16.840.1.752668.3.579.2.727 1980 Unknown [id number] 2.16.840.1.032893.3.579.2.1286 1980 Unknown [id number] 2.16.840.1.990445.3.579.2.1285 1980 Unknown [id number] 2.16840.1.016507.3.579.2.1285 1980 Unknown [id number] 2.840.1.694850.3.579.2.1285 1980 Unknown [id number] 2.16.840.1.018038.3.579.2.1258 1980 Unknown [id number] 2.840.1.108002.3.579.2.1258 1980 Unknown [id number] 2.16840.1.610183.3.579.2.1258 1980 Unknown [id number] 2.840.1.454204.3.579.2.1258 1980 Unknown [id number] 2.840.1.103182.3.579.2.1258 1980 Unknown [id number] 2.0.1.905922.3.579.2.1285 1980 Unknown [id number] 2.840.1.977162.3.579.2.1285 1980 Unknown [id number] 2.840.1.300538.3.579.2.1285 1980 Unknown [id number] 2.840.1.634938.3.579.2.1285 1980 Unknown [id number] 2840.1.014897.3.579.2.1285 1980 Unknown [id number] 2.840.1.185911.3.579.2.1285 1980 Unknown [id number] 2.840.1.477577.3.579.2.1285 1980 Unknown [id number] 2.840.1.378508.3.579.2. 1980 Unknown [id number] 2.840.1.202151.3.579.2. 1980 Unknown [id number] 2.16.840.1.026725.3.579.2. 1980 Unknown [id number] 2.16.840.1.934587.3.579.2. 1980 Unknown [id number] 2.16.840.1.910586.3.579.2. 1980 Unknown [id number] 2.16840.1.336494.3.579.2. 1980 Unknown [id number] 2.16840.1.399025.3.579.2. 1980 Unknown [id number] 2.16840.1.092132.3.579.2. 1980 Unknown [id number] 2.16840.1.304539.3.579.2. 1980 Unknown [id number] 2.840.1.280684.3.579.2. 1980 Unknown [id number] 2.840.1.310779.3.579.2. 1980 Unknown [id number] 2.840.1.559393.3.579.2. 1980 Unknown [id number] 2.840.1.888369.3.579.2. 1980 Unknown [id number] 2.840.1.017563.3.579.2. 1980 Unknown [id number] 2.16840.1.951963.3.579.2. 1980 Unknown [id number] 2.16840.1.953865.3.579.2. 1980 Unknown [id number] 2.16840.1.974750.3.579.2. 1980 Unknown [id number] 2.16840.1.934367.3.579.2. 1980 Unknown [id number] 2.16.840.1.548514.3.579.2.173 1980 Unknown [id number] 2.16.840.1.597120.3.579.2. 1980 Unknown [id number] 2.16.840.1.247168.3.579.2. 1980 Unknown [id number] 2.16.840.1.901810.3.579.2. 1980 Unknown [id number] 2.16.840.1.898870.3.579.2. 1980 Unknown [id number] 2.16.840.1.823369.3.579.2. 1980 Unknown [id number] 2.16.840.1.665574.3.579.2. 1980 Unknown [id number] 2.16840.1.966157.3.579.2. 1980 Unknown [id number] 2.16840.1.842141.3.579.2. 1980 Unknown [id number] 2.16840.1.009022.3.579.2. 1980 Unknown [id number] 2.16.840.1.719325.3.579.2. 1980 Unknown [id number] 2.16840.1.461925.3.579.2. 1980 Unknown [id number] 2.16.840.1.075837.3.579.2. 1980 Unknown [id number] 2.16.840.1.371373.3.579.2. 1980 Unknown [id number] 2.16.840.1.717217.3.579.2. 1980 Unknown [id number] 2.16.840.1.705717.3.579.2. 1980 Unknown [id number] 2.16.840.1.952285.3.579.2.173 1980 Unknown [id number] 2.16.840.1.263140.3.579.2.196 1980 Unknown [id number] 2.16.840.1.449436.3.579.2.196 1980 Unknown [id number] 2.16.840.1.042756.3.579.2.196 1959 Medicaid [id number] Unknown [id number] 2.16.840.1.145863.3.579.2.531 Unknown [id number] 2.16.840.1.714527.3.579.2.531 Unknown [id number] 2.16.840.1.114163.3.579.2.531 Social History Date Type Detail Facility Start: 09-02-2017 End: 11-11-2023 Tobacco smoking status AKIS Never smoked tobacco [facility] Start: 09-02-2017 End: 11-11-2023 Tobacco use and exposure Smokeless tobacco non-user [facility] Phone: Start: 10-11-2021 End: 01-13-2024 Alcohol intake Current non-drinker of alcohol (finding) [facility] Phone: Start: 1980 Sex Assigned At Not on file B ON [email or web address] Phone: Start: 10-01-2021 End: 10-22-2021 Exposure to SARS-CoV-2 (event) Not sure [facility] Phone: Start: 10-11-2021 End: 01-13-2024 Sex Assigned At [facility] Tobacco smoking status Never [facility] Start: 10-11-2021 End: 01-13-2024 History of Social function [facility] Start: 1980 Sex Assigned At Female F [facility] How often to you hav e a drink containing alcohol? Never [facility] Start: 10-05-2014 Sex Female (finding) [facility] Medical Equipment Procedure Code Equipment Code Equipment Origin al Text Equipment Identifier Dates Mobile Sut 5.5mm 2 Ft Crkscr Fbrwr Shldr 3 Pk 14.7mm Strl Ea=Bill-Only Rpl [id number] Start: 05-15-2022 Use to test BLOO D SUGAR TWICE DAILY [id number] Start: 05-28-2020 Use to test BLOO D SUGAR TWICE DAILY, Diagnosis: E11.9 [id number] Start: 03-08-2020 Clinical Notes 10-22-2021 to 01-13-2024 [...] attachments cannot be sent through Care Everywhere.Dizziness (Burundian)documented in this encounter [facility] 10-20-2023 History of Presen t illness Narrative [facility] Therapy Daily Note Patient: Karma Candelaria : 1980 CSN #: [id number] Referring Physician: Shawna Mcfadden DO Date: 10/20/2023 Treatment Diagnosis: LBP, cervical spine pain Onset Date: 02/18/23 PT Insurance Information: [employer] [facility] Total # of Visits Approved: 32 Per [...] the cervical area and her LB area.-met Alf Goals Time Frame for Alf Goals : 6 visits Concrete Bucket Loader Goal 1: Pt will be independent and compliant with exercise while maintaining improved posture 50% of the time - not met Alf Goal 2: Pt will be able to perform full cervical ROM without increase complaints of baseline pain with initiation to demonstrate imporved control of pain -NOT MET: continued cervical spine pain. Alf Goal 3: Pt will report 40% improvement in overall complaints and improved tolerance to her job tasks - 40% improved. Concrete Bucket Loader Goal 4: Pt kvng UE strength will be 5/5 without increasing pain complaints to assist in tolerance of lifting and carrying -PARTIALLY MET 4+/5 grossly. Minutes Tracking: Time In: 944 Time Out: 1030 Minutes: 45 Timed Code Treatment Minutes: 43 Minutes Jan Olmstead PT, DPT, OCS, Cert. DN Date: 10/20/2023 documented in this encounter [facility] 10-08-2023 History of Presen t illness Narrative [facility] Plastic & Reconstructive Surgery [address] Office Dwayne Khoury MD, PhD Caryl Mao, 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-BARREL LINER Dayan Harmon PA-C Plastic Surgery New Patient [...] mass follow up Ultrasound was done in [place] the nodule was noted but seemed consistent with a lymph node. Breast size has remained the same with weight loss Family history is positive for breast disease and breast cancer in her maternal grandmother Did she have children did breast feed Past Medical History: Past Medical History: Diagnosis Date Anxiety Asthma Back pain Bipolar 1 disorder ([facility]) Breast disorder enlarged lymph nodes in both breast Carpal tunnel syndrome Chronic pain disorder Deep vein thrombosis ([facility]) blood clot in left arm [...] night 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 ([facility]) 11/10/2017 Visual impairment Past Surgical History: Past Surgical History: Procedure Laterality Date ANKLE SURGERY Left x2 ARTHROSCOPY SHOULDER WITH ROTATOR CUFF REPAIR Right 05/15/2022 Performed by Chepe Ingram MD at [facility] DEBRIDEMENT Right 05/15/2022 Performed by Chepe Ingram MD at [facility] DECOMPRESSION OF SUBACROMIAL SPACE WITH PARTIAL ACROMIOPLASTY Right 05/15/2022 Performed by Chepe Ingram MD at [facility] INJECTION BLOCK EPIDURAL STEROID LUMBAR/SACRAL: L 4/5 WU N/A 04/22/2021 Performed by Pete Silver MD at [facility] INJECTION BLOCK SACROILIAC JOINT Left 03/27/2023 Performed by Pete Silver MD at [facility] INJECTION CERVICAL OR THORACIC EPIDURAL BLOCK WITH STEROIDS: C67 WU N/A 01/29/2018 Performed by Pete Silver MD at [facility] INJECTION LUMBAR OR SACRAL EPIDURAL BLOCK WITH STEROIDS: L45 WU N/A 10/15/2018 Performed by Pete Silver MD at [facility] INJECTION MEDIAL BRANCH NERVE BLOCK: bilat L45 51 Bilateral 07/30/2018 Performed by Pete Silver MD at [facility] INJECTION SPINE TRANSFORAMINAL: left C 5,6 Nroot Left 01/09/2023 Performed by Pete Silver MD at [facility] LAPAROSCOPIC CHOLECYSTECTOMY N/A 09/16/2016 Performed by Juan Ramon Jean MD at [facility] LIVER BIOPSY EMA PROCEDURE Right 05/15/2022 Performed by Chepe Ingram MD at [facility] NASAL SURGERY REPAIR HERNIA UMBILICAL 09/16/2016 Performed by Juan Ramon Jean MD at [facility] TONSILLECTOMY Allergies: Allergies Allergen Reactions Metformin Severe [...] 5 blood-glucose meter (TRUE METRIX GLUCOSE METER) [facility], use to test BLOOD SUGAR TWICE [...] , Rfl: lancets (UNILET LANCET) 28 gauge [facility], Use to test BLOOD SUGAR TWICE [...] on 04/28/2023), Disp: 30 tablet, Rfl: 0 gwquamsc-yfhb-OR-calcium &mins (THERAGRAN-M) 9 mg iron-400 mcg tablet, [...] nipple: 25 Areolar Diameter: 4.5 6 Female slide machine tender present: yes. Impression : No diagnosis found. Plan : Karma Banegas is a good candidate for bilateral breast reduction, as many of her ongoing medical complaints could be related to the large size of her breasts. An estimated weight of 687 grams or more could be removed from each breast, based on the [employer] sliding scale. She understands that cup size [...] We also discussed that breast size can exchange architect the years with weight loss and weight [...] with the patient. Dwayne Khoury MD, PhD [facility] Plastic & Reconstructive Surgery Total time spent was 30 minutes: Preparing to see the patient (e.g., review of tests) Obtaining and/or reviewing separately obtained history Performing a medically appropriate examination and/or evaluation Counseling and educating the patient/family/caregiver Ordering medications, tests, or procedures Referring and communicating with other health manager of care (not separately reported) Documenting clinical information in the electronic or other health record Independently interpreting results (not separately reported) and communicating results to the patient/family/caregiver Care coordination (not separately reported) Please note that portions of this note were generated using voice recognition [employer] dictation software. Although every effort was made to ensure the accuracy of this automated agronomy supervisor, some errors in agronomy supervisor may have occurred. documented in this encounter [facility] 09-22-2023 History of Presen t illness Narrative [...] next appt. documented in this encounter [facility] 08-26-2023 History of Presen t illness Narrative [facility] Physical Therapy Daily Note Patient: Karma Candelaria : 1980 CSN #: [id number] Referring Physician: Shawna Mcfadden DO Date: 08/26/2023 Diagnosis: Z76.89 - Persons encountering health services in other specified circumstances Treatment Diagnosis: pain in cervical and LB Onset Date: 02/18/23 PT Insurance Information: [employer] Total # of Visits Approved: 24 Per [...] the cervical area and her LB area.-met Concrete Bucket Loader Goals Time Frame for Alf Goals : 6 visits Concrete Bucket Loader Goal 1: Pt will be independent and compliant with exercise while maintaining improved posture 50% of the time. Concrete Bucket Loader Goal 2: Pt will be able to perform full cervical ROM without increase complaints of baseline pain with initiation to demonstrate imporved control of pain. Concrete Bucket Loader Goal 3: Pt will report 40% improvement in overall complaints and improved tolerance to her job tasks. Minutes Tracking: Time In: 1430 Time Out: 1500 Minutes: 30 Timed Code Treatment Minutes: 29 Minutes Kofi Villegas, PT, DPT Date: 08/26/2023 documented in this encounter [facility] 08-21-2023 History of Presen t illness Narrative Physical Therapy Disregard the no show note on 08/17. This was added in error. [facility] Daily Note Patient: Karma Candelaria : 1980 CSN #: [id number] Referring Physician: Shawna Mcfadden DO Date: 08/21/2023 Treatment Diagnosis: pain in cervical and LB Onset Date: 02/18/23 PT Insurance Information: [facility] Plan Total # of Visits Approved: [...] the cervical area and her LB area. Concrete Bucket Loader Goals Time Frame for Alf Goals : 6 visits Alf Goal 1: Pt will be independent and compliant with exercise while maintaining improved posture 50% of the time. Alf Goal 2: Pt will be able to perform full cervical ROM without increase complaints of baseline pain with initiation to demonstrate imporved control of pain. Alf Goal 3: Pt will report 40% improvement in overall complaints and improved tolerance to her job tasks. Alf Goal 4: Pt kvng UE strength will be 5/5 without increasing pain complaints to assist in tolerance of lifting and carrying. Minutes Tracking: Time In: 1045 Time Out: 1116 Minutes: 31 Timed Code Treatment Minutes: 29 Minutes Jan Olmstead PT, DPT Date: 08/21/2023 documented in this encounter [facility] 08-11-2023 History of Presen t illness Narrative [facility] Therapy Daily Note Patient: Karma Candelaria : 1980 CSN #: [id number] Referring Physician: Shawna Mcfadden DO Date: 08/11/2023 Diagnosis: Z76.89 - Persons encountering health services in other specified circumstances Treatment Diagnosis: pain in cervical and LB Onset Date: 02/18/23 PT Insurance Information: [facility] Total # of Visits Approved: 24 [...] the cervical area and her LB area. Alf Goals Time Frame for Concrete Bucket Loader Goals : 6 visits Concrete Bucket Loader Goal 1: Pt will be independent and compliant with exercise while maintaining improved posture 50% of the time. Concrete Bucket Loader Goal 2: Pt will be able to perform full cervical ROM without increase complaints of baseline pain with initiation to demonstrate imporved control of pain. Alf Goal 3: Pt will report 40% improvement in overall complaints and improved tolerance to her job tasks. Alf Goal 4: Pt kvng UE strength will be 5/5 without increasing pain complaints to assist in tolerance of lifting and carrying. Minutes Tracking: Time In: 1330 Time Out: 1400 Minutes: 30 Timed Code Treatment Minutes: 28 Minutes Jan Olmstead PT, DPT Date: 08/11/2023 documented in this encounter [facility] 07-14-2023 History of Presen t illness Narrative Physical Therapy [facility] Inpatient/Observation/Outpatient Rehabilitation Date: 07/14/2023 Patient Name: Karma [...] does not require skilled services due to: Therapist/Singing Telegram Performer will attempt to see this patient, at our earliest opportunity. Filomena Raphael Date: 07/14/2023 documented in this encounter [facility] 06-02-2023 History of Presen t illness Narrative [...] Year discontinued? N/a Are you of Ashkenazi Yazidism decent? no Family history of cancer: relation [...] or lymphadenopathy. I reviewed notes from her roofing technician dated 05/05/2023, imaging including mammogram and ultrasound dated 03/16/2023 and 03/25/2023, history form dated 06/02/2023. Past Medical History Past Medical History: Diagnosis Date Anxiety Asthma Back pain Bipolar 1 disorder ([facility]) Breast disorder enlarged lymph nodes in both breast Carpal tunnel syndrome Chronic pain disorder Deep vein thrombosis ([facility]) blood clot in left arm [...] night 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 ([facility]) 11/10/2017 Visual impairment Past Surgical History Past Surgical History: Procedure Laterality Date ANKLE SURGERY Left x2 ARTHROSCOPY SHOULDER WITH ROTATOR CUFF REPAIR Right 05/15/2022 Performed by Chepe Ingram MD at [facility] DEBRIDEMENT Right 05/15/2022 Performed by Chepe Ingram MD at [facility] DECOMPRESSION OF SUBACROMIAL SPACE WITH PARTIAL ACROMIOPLASTY Right 05/15/2022 Performed by Chepe Ingram MD at [facility] INJECTION BLOCK EPIDURAL STEROID LUMBAR/SACRAL: L 4/5 WU N/A 04/22/2021 Performed by Pete Silver MD at [facility] INJECTION BLOCK SACROILIAC JOINT Left 03/27/2023 Performed by Pete Silver MD at [facility] CERVICAL OR THORACIC EPIDURAL BLOCK WITH STEROIDS: C67 WU N/A 01/29/2018 Performed by Pete Silver MD at [facility] LUMBAR OR SACRAL EPIDURAL BLOCK WITH STEROIDS: L45 WU N/A 10/15/2018 Performed by Pete Silver MD at [facility] MEDIAL BRANCH NERVE BLOCK: bilat L45 51 Bilateral 07/30/2018 Performed by Pete Silver MD at [facility] SPINE TRANSFORAMINAL: left C 5,6 Nroot Left 01/09/2023 Performed by Pete Silver MD at [facility] LAPAROSCOPIC CHOLECYSTECTOMY N/A 09/16/2016 Performed by Juan Ramon Jean MD at [facility] LIVER BIOPSY EMA PROCEDURE Right 05/15/2022 Performed by Chepe Ingram MD at [facility] NASAL SURGERY REPAIR HERNIA UMBILICAL 09/16/2016 Performed by Juan Ramon Jean MD at [facility] TONSILLECTOMY Family History Family History Problem [...] 5 blood-glucose meter ([facility] MET[facility]X GLUCOSE [facility]) [facility] to test BLOOD SUGAR TWICE DAILY, [...] , Rfl: lancets (UNILET LANCET) 28 gauge [facility], Use to test BLOOD SUGAR TWICE [...] on 04/28/2023), Disp: 30 tablet, Rfl: 0 kkljlfwi-lnfa-SG-calcium &mins (THERAGRAN-M) 9 mg iron-400 mcg tablet, [...] a bilateral screening mammogram on 03/16/2023 through [facility]. Her breast tissue is almost entirely fatty. There was a 1 cm mass in the posterior upper-outer right breast 17 cm from the nipple. They thought this was likely a lymph node but recommended that she return for additional imaging. She had the imaging done in [place]. They did a right diagnostic mammogram and [...] with any concerns. documented in this encounter [facility] 05-12-2023 Miscellaneous Notes Spoke with patient and scheduled with Dr. Robledo 4/2. Patient voiced understanding of appointment details. Patient was offered sooner dates but declined per her availability. documented in this encounter [facility] 05-12-2023 Telephone encounter Note Spoke with patient and scheduled with Dr. Robledo 4/2. Patient voiced understanding of appointment details. Patient was offered sooner dates but declined per her availability. [facility] 04-30-2023 Miscellaneous Notes Last Office Visit: 04/28/2023 Next Office Visit: Visit date not found Last Urine Drug Screen: No results found for: BENZOSCRN OARRS appropriate documented in this encounter [facility] 04-30-2023 Telephone encounter Note Last Office Visit: 04/28/2023 Next Office Visit: Visit date not found Last Urine Drug Screen: No results found for: BENZOSCRN OARRS appropriate [facility] [facility] History of Presen t illness Narrative [facility] [address] [place] [address] Patient: Karma Banegas Sex: female : 1980 [...] spine (09/2022 last visit for 11/05/22) at [facility] with no relief Back: 10/15/18 L4/5 [...] Anxiety Asthma Back pain Bipolar 1 disorder ([facility]) Breast disorder enlarged lymph nodes in both breast Carpal tunnel syndrome Chronic pain disorder Deep vein thrombosis ([facility]) blood clot in left arm Dental [...] night 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 ([facility]) 11/10/2017 Visual impairment Past Surgical History: Procedure Laterality Date ANKLE SURGERY Left x2 ARTHROSCOPY SHOULDER WITH ROTATOR CUFF REPAIR Right 05/15/2022 Performed by Chepe Ingram MD at [facility] DEBRIDEMENT Right 05/15/2022 Performed by Chepe Ingram MD at [facility] DECOMPRESSION OF SUBACROMIAL SPACE WITH PARTIAL ACROMIOPLASTY Right 05/15/2022 Performed by Chepe Ingram MD at [facility] INJECTION BLOCK EPIDURAL STEROID LUMBAR/SACRAL: L 4/5 WU N/A 04/22/2021 Performed by Pete Silver MD at [facility] INJECTION BLOCK SACROILIAC JOINT Left 03/27/2023 Performed by Pete Silver MD at [facility] CERVICAL OR THORACIC EPIDURAL BLOCK WITH STEROIDS: C67 WU N/A 01/29/2018 Performed by Pete Silver MD at [facility] INJECTION LUMBAR OR SACRAL EPIDURAL BLOCK WITH STEROIDS: L45 WU N/A 10/15/2018 Performed by Pete Silver MD at [facility] INJECTION MEDIAL BRANCH NERVE BLOCK: bilat L45 51 Bilateral 07/30/2018 Performed by Pete Silver MD at [facility] SPINE TRANSFORAMINAL: left C 5,6 Nroot Left 01/09/2023 Performed by Pete Silver MD at [facility] LAPAROSCOPIC CHOLECYSTECTOMY N/A 09/16/2016 Performed by Juan Ramon Jean MD at [facility] LIVER BIOPSY EMA PROCEDURE Right 05/15/2022 Performed by Chepe Ingram MD at [facility] NASAL SURGERY REPAIR HERNIA UMBILICAL 09/16/2016 [...] Hodge 04/30/23 1141 documented in this encounter [facility] 04-28-2023 Instructions Peg Conrad CNA - 04/28/2023 [...] nearest emergency room. documented in this encounter [facility] 04-20-2023 Hospital Discharg e instructions Precious Urbina APRN - CNP - 04/20/2023 1:50 PM EST Increase fluid Tylenol Motrin for cough Continue home medications The following attachments cannot be sent through Care Everywhere.Head Injury: Closed: General Info (Burundian)Cervical Strain (Burundian)documented in this encounter [facility] 03-31-2023 Miscellaneous Notes Patient calls today and [...] medications prescribed to someone other than her. Associate Professor Of Biblical Studies reiterated this to patient. Patient's pharmacy was confirmed with her. Order pended for review and signature. documented in this encounter [facility] 03-31-2023 Telephone encounter Note Patient calls today [...] are [facility] encounter Note Is she still taking prozac? What dosage? Any other antidepressants? [facility] Telephone encounter Note Call placed to patient to confirm whether or not she is taking Prozac or other antidepressants. Patient states she is taking 40 mg Prozac daily. That is the only antidepressant that she takes. She is prescribed Latuda and Lamictal to treat Bipolar. [facility] Telephone encounter Note Can try cymbalta 30mg once daily [facility] 03-31-2023 Telephone encounter Note Call placed to patient to inform her of provider's response. Patient is also educated not to take medications that are prescribed to someone other than her. Patient voices that she is aware that she should not be taking medications prescribed to someone other than her. Associate Professor Of Biblical Studies reiterated this to patient. Patient's pharmacy was confirmed with her. Order pended for review and signature. [facility] 03-05-2023 Evaluation note Encounter Date Diagnosis [...] was counseling done by myself, Rhina ROBERTSON. [facility] [facility] Other 01-01-2024 Hospital Discharge instructions* Discharge Instructions* Sil Sullivan DO - 03/02/2023 7:49 PM EST Please follow-up with your GI doctor, trial enema at home, return to the ER for worsening abdominalpain, inability to pass gas, or nausea, vomiting * Attachments The following attachments cannot be sent through Care Everywhere. * Constipation (Bur[place]ian) [facility] Miscellaneous Notes* Telephone Encounter - Argenis [...] when she was under his care in [place]. She is currently taking Meloxicam that helps [...] She states whatever . [facility] Note* Telephone Encounter - Argenis Storm RN - 02/20/2023 10:04 AM EST Patient arrives to department to sign a form for an insurance appeal and demanding to speak with Dr. Silver or make an appointment with him. Patient advised that Dr. Sliver sees patients for proceduresonly, all follow ups are with Fartun. She is asking for a prescription for Ultram that is currently temporarily being prescribed by her cancer doctor. She said that Dr. Silver previously prescribed to her when she was under his care in [place]. She is currently taking Meloxicam that helps [...] add Dr. Silver on the note. PVU. [facility]12-22-2023 Telephone encounter Note* Telephone Encounter - Pete Silver MD - 02/20/2023 10:04 AM EST Discussed with nurse, I agree with Fartun's treatment plan going forward. [facility]12-22-2023 Telephone encounter Note* Telephone Encounter - UMESH Hodge - 02/20/2023 10:04 AM EST No Rx for tramadol. I have never written prescription for bra so I would not know how to proceed with anything like that. [facility]12-22-2023 Telephone encounter Note* Telephone Encounter - Argenis Storm RN - 02/20/2023 10:04 AM EST Patient aware of response. She states whatever . [facility]12-20-2023 Evaluation note* Encounter Date Diagnosis Assessment Notes Treatment Notes Treatment Clinical Notes Jan, Constipation, unspecified constipation type (ICD-10 - K59.00) Jan, Constipation (ICD-10 - K59.00) [facility] Other 12-12-2023 Miscellaneous Notes* Telephone Encounter - [...] and has f/u appt [facility] encounter Note* Telephone Encounter - [...] pain is now related to sacroiliac joint. [facility]12-12-[facility]23 Telephone encounter Note* Telephone Encounter - [...] sufficient reason to deny the current request. [facility]12-12-2023 Telephone encounter Note* Telephone Encounter - Alfredito William - 02/10/2023 8:18 AM EST GOT APPROVAL [facility]12-12-2023 Telephone encounter Note* Telephone Encounter - Maty Fulton RN - 02/10/2023 8:18 AM EST Pt is scheduled 03/27 for procedure and has f/u appt [facility]12-07-2023 Evaluation note* Encounter Date Diagnosis Assessment Notes [...] R10.9) Jan, Rectal bleed (ICD-10 - K62.5) [facility] Other 11-16-2023 Evaluation note* Encounter Date Diagnosis [...] was counseling done by myself, Rhina ROBERTSON. [facility] Other 11-08-2023 Evaluation note* Encounter Date Diagnosis [...] HAVE PATIENT START DOCUSATE 3 CAPSULES DAILY. [facility] Other 06-29-2023 Evaluation note* Encounter Date Diagnosis Assessment Notes Treatment Notes Treatment Clinical Notes Jul, Obesity (ICD-10 - E66.9) Jul, BMI 34.0-34.9,adult (ICD-10 - Z68.34) Jul, Other Summary of Visi t: (A) discussed continuing to work on small goals until stress decreases and she has the energy to increase goals (B) discussed healhtier choices at [place]- food blog reviewed (C) reviewed food storage tips for keeping produce fresh longer Patient set the following goals: - NEW: continue to choose sugar free beverages- not reviewed [facility] Other 05-30-2023 Evaluation note* Encounter Date Diagnosis [...] was counseling done by myself, Rhina ROBERTSON. [facility] Other 03-21-2023 Evaluation note* Encounter Date Diagnosis [...] was counseling done by myself, Rhina ROBERTSON. [facility] Other 02-07-2023 Evaluation note* Encounter Date Diagnosis [...] set the following goals: not reviewed today [facility] Other 02-07-2023 Evaluation note* Encounter Date Diagnosis [...] was counseling done by myself, Rhina ROBERTSON. [facility] Other 12-28-2022 Evaluation note* Encounter Date Diagnosis [...] patient set personal goal using given handout. [facility] Other 12-27-2022 Evaluation note* Encounter Date Diagnosis [...] was counseling done by myself, Rhina ROBERTSON. [facility] Other 12-01-2022 NotePROCEDURE: XR ANKLE LT MIN [...] Electronically authenticated by: ONEL CLARK Date: 2022-01-29 22:30[facility]12-01-2022 NotePROCEDURE: XR ANKLE LT MIN 3 [...] Electronically authenticated by: ONEL CLARK Date: 2022-01-29 22:30[facility]11-15-2022 Evaluation note* Encounter Date Diagnosis Assessment [...] was counseling done by myself, Rhina ROBERTSON. [facility] Other 10-05-2022 Evaluation note* Encounter Date Diagnosis [...] was counseling done by myself, Rhina ROBERTSON. [facility] Other 08-30-2022 Evaluation note* Encounter Date Diagnosis Assessment Notes Treatment Notes Treatment Clinical Notes Sep, Fatty liver (ICD-10 - K76.0) ENCOURAGED WEIGHT LOSS Sep, Obesity (BMI 30-39.9) (ICD-10 - E66.9) [facility] Other 08-23-2022 Hospital Discharge instructions* Discharge Instructions* Satnley Almonte PA-C - 10/22/2021 2:03 PM EDT Follow-up with primary care doctor 7 to 10 days for reevaluation. Take Motrin 800 mg as directed with food. Start eardrops left ear as directed. Promptly return to emergency department for new, changing or worsening of symptoms or other concerns. [facility] [email or web address] Phone: evaluation + Plan note No data available for this section [facility]* Diagnosis Pilonidal cyst- Primary Pilonidal cyst without mention of abscess documented in this encounter [facility] [email or web address] Phone: evaldghlpo note* Diagnosis Acute diffuse otitis externa of left ear- Primary documented in this encounter [facility] [email or web address] Phone: [email or web address] noteNo InformationNortWellSpan [facility] [place] [facility] Other Evaluqisnn note* Diagnosis Constipation, unspecified constipation type- Primary documented in this encounter [facility] [employer] noteNo assessment information [facility] Work Phone: Evaluation note* Diagnosis Closed head injury, initial encounter- Primary Fall due to slipping on ice or snow, initial encounter Acute cervical myofascial strain, initial encounter documented in this encounter [facility] [employer] note* Diagnosis Lumbosacral spondylosis without myelopathy- Primary [facility] Diagnosis Mass of upper outer quadrant of right breast- Primary Abnormal mammogram Abnormal mammogram, unspecified Symptomatic mammary hypertrophy [facility]* Diagnosis Onset Date Resolution Status ADHD acute BMI 36.0-36.9,adult acute Constipation acute Diabetes mellitus with hyperglycemia acute Fatty liver acute IBS (irritable bowel syndrome) acute Obesity acute Shifting sleep-work schedule, affecting sleep acute Constipation acute Elevated liver function tests acute Fatty liver acute IBS (irritable bowel syndrome) acute [facility] Work Phone: Evaluation note* Diagnosis Dizziness- Primary Dizziness and giddiness [facility] Diagnosis Macromastia- Primary Hypertrophy of breast [facility] System[facility] general Narrative - Reported* Type Description Date Medical History PTSD Medical History DIVERTICULITOUS Surgical History 2 BACK INJECTIONS 2014 Surgical History LEFT ANKLE 2002 Surgical History CHOLECYSTECTOMY Hospitalization History SEE ABOVE [facility] Other [facility] general Narrative - Reported* Type Description Date Medical History PTSD Medical History DIVERTICULITOUS Medical History bipolar Medical History ADHD Surgical History 2 BACK INJECTIONS 2014 Surgical History LEFT ANKLE 2002 Surgical History CHOLECYSTECTOMY Surgical History nasal surgery Hospitalization History SEE ABOVE [facility] Other Hisqbmx general Narrative - Reported* Type Description Date Medical History PTSD Medical History DIVERTICULITOUS Medical History bipolar Medical History ADHD Surgical History 2 BACK INJECTIONS 2014 Surgical History LEFT ANKLE 2002 Surgical History CHOLECYSTECTOMY Surgical History nasal surgery Surgical History right Rotator surgery 05-15-22 Hospitalization History SEE ABOVE [facility] Other Hiszgqs general Narrative - Reported* Type Description Date Medical History PTSD Medical History DIVERTICULITOUS Medical History bipolar Medical History ADHD Medical History rotator cuff tear Surgical History 2 BACK INJECTIONS 2014 Surgical History LEFT ANKLE 2001 Surgical History CHOLECYSTECTOMY Surgical History nasal surgery Surgical History right Rotator surgery 05-15-22 Hospitalization History SEE ABOVE [facility] Other Hisszuf general Narrative - Reported* Type Description Date Medical History PTSD Medical History DIVERTICULITOUS Medical History bipolar Medical History ADHD Medical History rotator cuff tear Surgical History 2 BACK INJECTIONS 2014 Surgical History LEFT ANKLE 2002 Surgical History CHOLECYSTECTOMY Surgical History nasal surgery Surgical History right Rotator surgery 05-15-22 Surgical History Neck injections/root burnt 12/31 Hospitalization History SEE ABOVE [facility] Other Hiszfya general Narrative - Reported* Type Description Date Medical History PTSD Medical History DIVERTICULITOUS Medical History bipolar Medical History ADHD Medical History rotator cuff tear Surgical History 2 BACK INJECTIONS 2014 Surgical History LEFT ANKLE 2001 Surgical History CHOLECYSTECTOMY Surgical History nasal surgery Surgical History right Rotator surgery 05-15-22 Surgical History Neck injections/root burnt 12/31 Hospitalization History SEE ABOVE Hospitalization History [facility] Marjorie- terrell onstipation 03-02-2023 [facility] Other Hospital Discharge instructions* Attachments The following attachments cannot be sent through Care Everywhere. * Pilonidal Abscess (Burundian) documented in this encounterBON [facility] Work Phone: Hospital Discharge instructions No data available for this section [facility]InstructionsNot on filedocumented in this encounter [facility] System[facility]ructionsNot on filedocumented in this encounter [facility] SystemInstructionsNot on filedocumented in this encounter [facility] SystemInstructionsNot on filedocumented in this encounter [facility] SystemInstructionsNot on filedocumented in this encounter [facility] SystemInstructionsNot on filedocumented in this encounter [facility] [employer] SystemProgress note No data available for this section [facility] for [facility] Narrative* Consultation (Routine) - Pending Review Specialty Diagnoses / Procedures Referred By Karla cuadra Referred To Contact Breast Surgery Diagnoses Abnormal mammogram Carmen Fisher MD [address] [place] [id number] Ila Trevizo MD [address] [place] [phone] Referral ID Status Reason Start Date Expiration Date V isits Requested Visits Authorized [id number] Pending Review 05/06/2023 05/05/2024 1 1 [facility] Summary Purpose Family History No Family History [...] PA [address], [address] [place] [address] Referral ID Status Reason Start Date Expiration Date V isits Requested Visits Authorized [id number] Pending Review 04/28/2023 04/27/2024 1 1 Chief [...] DATE CREATED AUTHOR AUTHOR'S ORGANIZ ATION 06/04/2023 [facility] DATE CREATED AUTHOR AUTHOR'S ORGANIZ ATION 08/03/2023 [facility] DATE CREATED AUTHOR AUTHOR'S ORGANIZ ATION 10/10/2023 [facility] DATE CREATED AUTHOR AUTHOR'S ORGANIZ ATION 11/30/2023 [facility] EPIC DATE CREATED AUTHOR AUTHOR'S ORGANIZ ATION 12/22/2023 [facility] DATE CREATED AUTHOR AUTHOR'S ORGANIZ ATION 02/01/2024 [facility] DATE CREATED AUTHOR AUTHOR'S ORGANIZ ATION 02/05/2024 [facility] Reason for Visit (unrecogniz ed section [...] Dispensed Refills Start Date End Da te edyrtklu-htjgrtnty-mvfpnj ortisone (CORTISPORIN) [id number] 4 drops into the [...] Care Teams (unrecognized sec tion and content) Software Build Engineer Relationship Specialty Start Date End Date Shawna Mcfadden DO [address] [place] [address] PCP - General Family Medicine 10/12/21 Software Build Engineer Relationship Specialty Start Date End Date Shawna Mcfadden DO [address] [place] [address] PCP - General Family Medicine 10/12/21 Software Build Engineer Relationship Specialty Start Date End Date Shawna Mcfadden DO [address] [place] [address] PCP - General Family Medicine 10/12/21 Software Build Engineer Relationship Specialty Start Date End Date Shawna Mcfadden DO [address] [place] [address] PCP - General Family Medicine 05/02/22 Software Build Engineer Relationship Specialty Start Date End Date Shawna Mcfadden DO [address] [place] [address] PCP - General Family Medicine 10/12/21 Software Build Engineer Relationship Specialty Start Date End Date Shawna Mcfadden DO [address] [place] [address] PCP - General Family Medicine 05/02/22 Team [...] Care Provider Active Start: March 18, 2023 Software Build Engineer Relationship Specialty Start Date End Date Shawna Mcfadden DO [address] [place] [address] PCP - General Family Medicine 05/02/22 Software Build Engineer Relationship Specialty Start Date End Date Shawna Mcfadden DO [address] [place] [address] PCP - General Family Medicine 10/12/21 Software Build Engineer Relationship Specialty Start Date End Date Shawna Mcfadden DO [address] [place] [address] PCP - General Family Medicine 05/02/22 Software Build Engineer Relationship Specialty Start Date End Date Shawna Mcfadden DO [address] [place] [address] PCP - General Family Medicine 10/12/21 Software Build Engineer Relationship Specialty Start Date End Date Shawna Mcfadden DO [address] [place] [address] PCP - General Family Medicine 05/02/22 Software Build Engineer Relationship Specialty Start Date End Date Shawna Mcfadden DO [address] [place] [address] PCP - General Family Medicine 05/02/22 Team Status: Active Member Role Status Dates KIRAN ContrerasP-BC Primary Care Provider Active Team Status: Inactive Member Role Status Dates Gayathri Adams APRN Attending Provider Active Start: May 21, 2023 End: May 21, 2023 Rory Driver [facility] Primary Care Provider Active Start: May 21, 2023 End: May 21, 2023 Team Status: Inactive Member Role Status Dates Jan Garg APRN Attending Provider Active Start: May 21, 2023 End: May 21, 2023 Rory Driver [facility] Primary Care Provider Active Start: May 21, 2023 End: May 21, 2023 Software Build Engineer Relationship Specialty Start Date End Date Shawna Mcfadden DO [address] [place], [place] [address] PCP - General Family Medicine 10/12/21 Software Build Engineer Relationship Specialty Start Date End Date Shawna Mcfadden DO [address] [place] [address] PCP - General Family Medicine 10/12/21 Software Build Engineer Relationship Specialty Start Date End Date Loreto Mcneal APRN - JO ANN [address] [place] [address] PCP - General 11/11/23 Software Build Engineer Relationship Specialty Start Date End Date Loreto Mcneal APRN - BLOWN FILM EXTRUSION OPERATOR [address] [place] [address] PCP - General 11/11/23 Software Build Engineer Relationship Specialty Start Date End Date Loreto Mcneal APRN - NP [address] [place] [address] PCP - General 11/11/23 Software Build Engineer Relationship Specialty Start Date End Date [facility] [address] [place] PCP - General Family Medicine 10/05/23 Software Build Engineer Relationship Specialty Start Date End Date Fredis LoretoCONCETTA majano NP [address] [place] [address] PCP - General 11/11/23 Goals (unrecognized section [...] BE BASED ON THE PRIMARY CLINICAL RECORDS. [facility] [employer] provides no warranty or guarantee of the accuracy or completeness of information in this document.
== END 2024-02-11 11:38 | disposition home or self-care (01) ==
LOC: CARD 11:37
PROVIDERS: PCP Nurse Practitioner Family; Visit Provider Nurse Practitioner Family
DX: R00.0 Tachycardia, unspecified (principal)
CPT/HCPCS: 93246

== ENCOUNTER 2024-02-22 07:32 | Outpatient (RCR) | payer OTHER, SELFPAY ==
[2024-02-22] MEDS: FERUMOXYTOL 510 MG in 0.9 % SODIUM CHLORIDE 100 ML 234 MG IV (09:34)
[2024-02-22 09:47] VITALS: BP 123/78; PULSE 78; TEMP 35.5; O2SAT 98
== END 2024-03-01 23:59 | disposition home or self-care (01) ==
LOC: HEMC 07:32
PROVIDERS: PCP Nurse Practitioner Family; Visit Provider Internal Medicine Hematology & Oncology
DX: M53.3 Sacrococcygeal disorders, not elsewhere classified (principal); M48.062 Spinal stenosis, lumbar region with neurogenic claudication; M47.816 Spondylosis without myelopathy or radiculopathy, lumbar region; R00.0 Tachycardia, unspecified; D50.9 Iron deficiency anemia, unspecified; K90.9 Intestinal malabsorption, unspecified; D64.9 Anemia, unspecified; Z15.09 Genetic susceptibility to other malignant neoplasm; Z90.49 Acquired absence of other specified parts of digestive tract; Z85.41 Personal history of malignant neoplasm of cervix uteri; K21.9 Gastro-esophageal reflux disease without esophagitis; M79.10 Myalgia, unspecified site; M25.50 Pain in unspecified joint
CPT/HCPCS: 93246; 96365; G0463; Q0138

== ENCOUNTER 2024-03-09 21:03 | Emergency (ER) | payer OTHER, SELFPAY ==
[2024-03-09 21:29] VITALS: BP 107/73; PULSE 120; TEMP 37; O2SAT 98; BMI 39.1
[2024-03-09 22:06] LABS: Influenza Virus A Antigen Negative; Influenza Virus B Antigen Negative; Internal Control Within Normal Limits; Strep A Antigen Screen Negative
[2024-03-09 22:07] LABS: Internal Control Within Normal Limits; SARS-CoV-2 Ag POSITIVE (NEGATIVE)
--- NOTE | 2024-03-09 22:42 | ED_ITS ---
HPI - URI/Sore Throat General Chief Complaint: Upper Respiratory Infection Stated Complaint: upper respiratory infection Time Seen by Provider: 03/09/24 21:18 Source: patient History of Present Illness HPI Narrative: 43-year-old female presents to the emergency department for cough and congestion of 2 days duration. She is being seen along with her 2 children who have similar symptoms. No vomiting or diarrhea. She has not had a known fever. Related Data Home Medications ?Medication ?Instructions ?Recorded ?Confirmed Bifidobacterium infantis 4 mg 4 mg PO DAILY 10/24/23 02/01/24 capsule (Align) ascorbic acid (vitamin C) 500 mg 500 mg PO BID 10/24/23 02/01/24 tablet (Vitamin C) cholecalciferol (vitamin D3) 50 50 mcg PO DAILY 10/24/23 02/01/24 mcg (2,000 unit) capsule ciclopirox 0.77 % topical cream 1 applic topical Q12H 10/24/23 02/01/24 duloxetine 60 mg capsule,delayed 60 mg PO DAILY 10/24/23 02/01/24 release empagliflozin 25 mg tablet 25 mg PO DAILY 10/24/23 02/01/24 (Jardiance) famotidine 40 mg tablet 40 mg PO DAILY 10/24/23 02/01/24 fluoxetine 60 mg tablet 60 mg PO DAILY 10/24/23 02/01/24 gabapentin 300 mg capsule 300 mg PO Q8H 10/24/23 02/01/24 lamotrigine 200 mg tablet 200 mg PO DAILY 10/24/23 02/01/24 liraglutide 0.6 mg/0.1 mL (18 mg/3 0.6 mg subcut Q24H 10/24/23 02/01/24 mL) subcutaneous pen injector (Victoza 3-Ramon) lisdexamfetamine 20 mg capsule 70 mg PO DAILY 10/24/23 02/01/24 (Vyvanse) lurasidone 120 mg tablet 120 mg PO DAILY 10/24/23 02/01/24 multivitamin with folic acid 400 1 tab PO DAILY 10/24/23 02/01/24 mcg tablet (Daily-Karely (with folic acid)) pioglitazone 30 mg tablet 30 mg PO DAILY 10/24/23 02/01/24 rosuvastatin 10 mg tablet 10 mg PO DAILY 10/24/23 02/01/24 sumatriptan succinate 100 mg tablet 100 mg PO PRN migraine headache 10/24/23 trazodone 50 mg tablet 50 mg PO DAILY 10/24/23 02/01/24 vitamin B complex 1 tab PO Q24H 10/24/23 02/01/24 albuterol sulfate 0.63 mg/3 mL 0.63 mg inhalation TID PRN 11/16/23 02/01/24 solution for nebulization bronchospasm albuterol sulfate 90 mcg/actuation 2 inh inhalation QID PRN shortness 11/16/23 02/01/24 aerosol inhaler (Proventil HFA) of breath or wheezing biotin injectioin .every other week 11/16/23 fluticasone propionate 50 1 spray intranasal DAILY PRN 11/16/23 02/01/24 mcg/actuation nasal allergy symptoms spray,suspension (24 Hour Allergy Relief) invizia 11/16/23 mupirocin 2 % topical ointment topical 11/16/23 nystatin 100,000 unit/gram topical topical 11/16/23 cream rizatriptan 10 mg tablet (Maxalt) See Rx Instructions PO .COMPLEX 11/16/23 02/01/24 tramadol 50 mg tablet 50 mg PO 11/16/23 ferrous sulfate 325 mg (65 mg 325 mg PO DAILY 01/08/24 02/01/24 iron) tablet (FeroSul) docusate sodium 100 mg capsule 300 mg PO DAILY 01/11/24 02/01/24 linaclotide 290 mcg capsule 290 mcg PO DAILY 01/11/24 02/01/24 (Linzess) Previous Rx's ?Medication ?Instructions ?Recorded cyclobenzaprine 10 mg tablet 10 mg PO TID PRN muscle spasm #90 11/16/23 tabs diclofenac sodium 75 mg 75 mg PO BID PRN pain #60 tabs 11/16/23 tablet,delayed release ketorolac 10 mg tablet 10 mg PO Q8H PRN pain 5 days #15 01/09/24 tabs gabapentin 300 mg capsule 600 mg (2 x 300 mg) PO TID #180 02/01/24 caps Allergies Allergy/AdvReac Type Severity Reaction Status Date / Time cephalexin (From Keflex) Allergy Intermediate Rash Verified 02/01/24 08:38 citalopram (From Celexa) Allergy Intermediate Rash Verified 02/01/24 08:38 metformin Allergy Intermediate Nausea Verified 02/01/24 08:38 Review of Systems ROS Narrative A ten point review of systems is negative except as noted above. PFSH PFSH Social History Little interest or pleasure in doing things: not at all Feeling down, depressed, or hopeless: not at all Exam Narrative Exam Narrative: Nurses note and vital signs reviewed and patient is not hypoxic. General: The patient appears well and in no apparent distress. Patient is resting comfortably sitting on a chair Skin: Warm, dry, no pallor noted. There is no rash noted. Head: Normocephalic, atraumatic Eye: Normal conjunctiva, no drainage Ears, Nose, Mouth, and Throat: oral mucosa is moist. Nares patent. Cardiovascular: Regular Rate and Rhythm Respiratory: Patient is in no distress, no accessory muscle use, lungs are clear to auscultation, no wheezing, rales or rhonchi Back: non-tender GI: Nontender Musculoskeletal: No joint swelling Neurological: A&O, normal speech Psychiatric: Cooperative Constitutional Vital Signs, click to edit/add: Last Vital Signs Temp 98.6 F 03/09/24 21:29 Pulse 120 H 03/09/24 21:29 Resp 18 03/09/24 21:29 BP 107/73 03/09/24 21:29 Pulse Ox 98 03/09/24 21:29 O2 Del Method Room Air 03/09/24 21:29 Course Vital Signs Vital signs: Vital Signs Temperature 98.6 F 03/09/24 21:29 Pulse Rate 120 H 03/09/24 21:29 Respiratory Rate 18 03/09/24 21:29 Blood Pressure 107/73 03/09/24 21:29 Pulse Oximetry 98 03/09/24 21:29 Oxygen Delivery Method Room Air 03/09/24 21:29 Temperature 98.6 F 03/09/24 21:29 Pulse Rate 120 H 03/09/24 21:29 Respiratory Rate 18 03/09/24 21:29 Blood Pressure 107/73 03/09/24 21:29 Pulse Oximetry 98 03/09/24 21:29 Oxygen Delivery Method Room Air 03/09/24 21:29 MDM - URI/Sore Throat MDM Narrative Medical decision making narrative: COVID test is positive. She was informed and given a work note. Treatment diagnosis and follow-up were discussed with the patient. Differential Diagnosis Differential diagnosis: Likely upper respiratory infection, viral infection, influenza and other (COVID) Lab Data Attestation: I reviewed the patient's lab results. Labs: Lab Results 03/09/24 Range/Units 21:36 Influenza Type A Ag Negative Influenza Type B Ag Negative SARS-CoV-2 Ag (CV2AG) Positive A (NEGATIVE) Streptococcus Screen Negative Discharge Plan Discharge Chief Complaint: Upper Respiratory Infection Clinical Impression: COVID-19 Patient Disposition: Home, Self-Care Time of Disposition Decision: 22:41 Condition: Good Mode of Transportation: Private Vehicle Prescriptions / Home Meds: No Action ascorbic acid (vitamin C) [Vitamin C] 500 mg tablet 500 mg PO BID Align 4 mg capsule 4 mg PO DAILY cholecalciferol (vitamin D3) 50 mcg (2,000 unit) capsule 50 mcg PO DAILY ciclopirox 0.77 % cream 1 applic TOPICAL Q12H duloxetine 60 mg capsule,delayed release(DR/EC) 60 mg PO DAILY Jardiance 25 mg tablet 25 mg PO DAILY famotidine 40 mg tablet 40 mg PO DAILY fluoxetine 60 mg tablet 60 mg PO DAILY gabapentin 300 mg capsule 300 mg PO Q8H lamotrigine 200 mg tablet 200 mg PO DAILY liraglutide [Victoza 3-Ramon] 0.6 mg/0.1 mL (18 mg/3 mL) pen injector 0.6 mg SUBCUT Q24H lisdexamfetamine [Vyvanse] 20 mg capsule 70 mg PO DAILY lurasidone 120 mg tablet 120 mg PO DAILY multivitamin with folic acid [Daily-Karely (with folic acid)] 400 mcg tablet 1 tab PO DAILY pioglitazone 30 mg tablet 30 mg PO DAILY rosuvastatin 10 mg tablet 10 mg PO DAILY sumatriptan succinate 100 mg tablet 100 mg PO PRN (Reason: migraine headache) trazodone 50 mg tablet 50 mg PO DAILY Rx Instructions: HS vitamin B complex Tablet 1 tab PO Q24H diclofenac sodium 75 mg tablet,delayed release (DR/EC) 75 mg PO BID PRN (Reason: pain) Qty: 60 2RF cyclobenzaprine 10 mg tablet 10 mg PO TID PRN (Reason: muscle spasm) Qty: 90 2RF nystatin 100,000 unit/gram cream TOPICAL mupirocin 2 % ointment TOPICAL tramadol 50 mg tablet 50 mg PO rizatriptan [Maxalt] 10 mg tablet See Rx Instructions .ROUTE .COMPLEX Rx Instructions: take 1 tab at onset of headache; if no relief may repeat 1 tab after at least 2 hrs; max = 3 tabs/24 hr albuterol sulfate [Proventil HFA] 90 mcg/actuation HFA aerosol inhaler 2 inh inhalation QID PRN (Reason: shortness of breath or wheezing) fluticasone propionate [24 Hour Allergy Relief] 50 mcg/actuation spray,suspension 1 spray intranasal DAILY PRN (Reason: allergy symptoms) Rx Instructions: administer into each nostril albuterol sulfate 0.63 mg/3 mL solution for nebulization 0.63 mg inhalation TID PRN (Reason: bronchospasm) biotin injectioin .every other week invizia ferrous sulfate [FeroSul] 325 mg (65 mg iron) tablet 325 mg PO DAILY ketorolac 10 mg tablet 10 mg PO Q8H PRN (Reason: pain) 5 Days Qty: 15 0RF Rx Instructions: Do not take with other NSAID medications. docusate sodium 100 mg capsule 300 mg PO DAILY Linzess 290 mcg capsule 290 mcg PO DAILY gabapentin 300 mg capsule 600 mg PO TID Qty: 180 0RF Print Language: Polish Instructions: COVID-19 (Coronavirus Disease 2019) (ED), COVID-19: Slow the Coronavirus Spread (ED), Face Coverings (Masks) and COVID-19 (ED) Referrals: Loreto Mcneal NP [Primary Care Provider] - 1 week
--- NOTE | 2024-03-09 23:01 | PC.NURSE ---
i gave this patient verbal and paper discharge orders along with 1 work note and she voices yes understanding these. at time of discharge voices no concerns and shows no signs of distress
[2024-03-09 23:54] LABS: BOX Test Reference Lab FRMC; BOX Test Sent Out GROUP A STREP CX
== END 2024-03-09 23:03 | disposition home or self-care (01) ==
PROVIDERS: Emergency Provider Emergency Medicine; PCP Nurse Practitioner Family
DX: U07.1 COVID-19 (principal)
CPT/HCPCS: 36415; 87070; 87081; 87804; 87811; 87880; 99285

== ENCOUNTER 2024-03-24 11:14 | Outpatient (OUT) | payer OTHER, SELFPAY ==
--- OUTSIDE RECORDS SUMMARY | 2024-03-24 11:31 | XMS_ITS | CCD ---
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 [employer] Name Role Phone Juan Ramon Jean Unavailable Unavailable FernandosilvestreJuan Ramon marie Unavailable Unavailable DOMENICA OLIVA Unavailable [...] Consulting Unavailable HIGHLANDER, JOY Reis Attending Unavailable HIGHLANDER, JOY Reis Consulting Unavailable SHAMMO, RORY Admitting Unavailable SHAMMO, RORY Attending Unavailable SHAMMO, RORY Consulting Unavailable MISC, DR TRAORE Primary Care Unavailable MISC, DR TRAORE Primary Care Unavailable MISC, DR TRAORE Admitting Unavailable MISC, DR TRAORE Attending Unavailable MISC, DR TRAORE Consulting Unavailable Jan Garg Unavailable DOMENICA OLIAV Primary Care Physician HILARY GRANADO Referring Unavailable [...] able RUMSCHLAG, SHAWNA K Referring Unavailable SERVICES, [facility] Care Unava ilable 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, [place] Primary Care [facility] ider LULY ENGLISH Attending Unavailable GABY JUNE Attending Unavailable ROEL GARBER Attending Unavailable LAILA LIEBERMAN Attending Unavailable BRITTANY NEVILLE Attending Unavailable SERVICES, [facility] Primary Care Unava ilable SHAMMO, RORY Referring Unavailable RUMSCHLAG, SHAWNA K Primary Care Unavailable SHAMMO, RORY Referring Unavailable RUMSCHLAG, SHAWNA K Primary Care Unavailable PETE SILVER Attending Unavailable PETE SILVER Referring Unavailable RUMSCHLAG, SHAWNA K Primary Care Unavailable PETE SILVER Admitting Unavailable SILVERPETE Attending Unavailable RUMSCHLAG, SHAWNA K Referring Unavailable RUMSCHLAG, SHAWNA K Primary Care Unavailable JORGE, CARMEN Referring Unavailable SERVICES, [facility] Primary Care Unava ilable GAURAV SELLERS Attending Unavailable RUMSCHLAG, SHAWNA K Referring Unavailable RUMSCHLAG, SHAWNA K Primary Care Unavailable Services, [facility] Primary Care Provider Bk DALE, Ugo Stoddard Attending Unavailable Bk DALE, Ugo Stoddard Attending Unavailable Bk DALE, Ugo Stoddard Attending Unavailable RUMSCHLAG, SHAWNA Referring Unavailable RUMSCHLAG, SHAWNA Primary Care Unavailable RUMSCHLAG, SHAWNA Referring Unavailable RUMSCHLAG, SHAWNA Primary Care Unavailable RUMSCHLAG, SHAWNA Primary Care Unavailable RUMSCHLAG, SAHWNA Referring Unavailable NAVEEN SANCHEZ Attending Unavailable RUMSCHLAG, SHAWNA Primary Care Unavailable RUMSCHLAG, SHAWNA Primary Care Unavailable RUMSCHLAG, SHAWNA Referring Unavailable SIL SULLIVAN Attending Unavailable RUMSCHLAG, SHAWNA Primary Care Unavailable LISETTE JUNIOR Attending Unavailable MYERHOLTZ, LORETO Primary Care Unavailable RUMSCHLAG, [...] MYERHOLTZ, LORETO Primary Care Unavailable RUMSCHLAG, SHAWNA Primary Care Unavailable RUMSCHLAG, SHAWNA Referring Unavailable RUMSCHLAG, SHAWNA Referring Unavailable RUMSCHLAG, SHAWNA Primary Care Unavailable RUMSCHLAG, SHAWNA Referring Unavailable RUMSCHLAG, SHAWNA Primary Care Unavailable RUMSCHLAG, SHAWNA Referring Unavailable RUMSCHLAG, SHAWNA Primary Care Unavailable RUMSCHLAG, SHAWNA Referring Unavailable MYERHOLTZ, LORETO Primary Care Unavailable NAVEEN SANCHEZ Unavailable RUMSCHLAG, SHAWNA Primary Care Unavailable RUMSCHLAG, SHAWNA Referring Unavailable MYERHOLTZ, LORETO Primary Care Unavailable RUMSCHLAG, SHAWNA Primary Care Unavailable RUMSCHLAG, SHAWNA Referring Unavailable Zully 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, Key Unavailable Shawna Mcfadden DO Primary Care Provider [facility] CLIENT SERVICES DIRECTOR-BCRory T Primary Care Provider Mio Marroquin DO Attending Provider Unavailab le NON STAFF Primary Care Unavailable Yo Blank Admitting Unavailable Yo Blank Attending Unavailable Mio Marroquin Attending Unavailable [facility] Rory T Primary Care Unavailable Mio Marroquin Admitting Unavailable [facility] Rory T Primary Care Unavailable Myrtle Cerna Admitting Unavailable Myrtle Cerna Attending Unavailable Allergies Allergy Classification Reported Allergen(s) Allergy Type Date of Onset Reaction(s) Facility Cephalosporins (antibiotic) (2 sources) Cephalexin Drug Allergy 7 [facility] Serotonin Reuptake Inhibitors (SSRIs) (2 sources) Citalopram Drug Allergy 7 [facility] (20 sources) cephalexin; Translations: [Keflex] Drug Allergy 3 [facility] Repository (4 sources) citalopram; Translations: [CeleXA] Drug Allergy 3 AOF, heart palpitation [facility] Repository (20 sources) Cephalexin; Translations: [CEPHALEXIN] Drug Allergy 4 [facility] Work Phone: (20 sources) Citalopram; Translations: [CITALOPRAM] Drug Allergy 4 Hives, anaphylaxis [facility] (5 sources) metFORMIN Drug Allergy Unknown [facility] Other (20 sources) metFORMIN; Translations: [METFORMIN] Drug Allergy 3 Unknown, Unknown Reaction [facility] Comment on above: bottoms out to unde r 40 (17 sources) POISON DEVORAH EXTRACT; Translations: [POISON DEVORAH EXTRACT] Drug [facility] ([facility] sources[facility] Metformin And Related Propensity to adverse reactions to drug 4 Other (See Comments) [facility] (1 source) Cephalexin Drug Allergy 4 [facility] Repository (1 source) Citalopram Drug Allergy 4 [facility] Repository (1 source) metFORMIN Drug Allergy 4 [facility] Repository Medications Current Medications Medication Drug Class(es) Dates Sig (Normalized) Sig (Original) [id number] 200 actuat albuterol 0.09 mg/actuat metered dose inhaler (20 sources) beta2-Adrenergic Agonist Start: 07-16-2020 take 2 puff(s) by mouth every six hours as needed for wheezing albuterol (PROVENTIL HFA;VENTOLIN HFA) 90 mcg/actuation inhaler Indications: Obstructive sleep apnea syndrome INHALE 2 PUFFS BY MOUTH EVERY 6 HOURS NEEDED FOR WHEEZING 18 g 07/16/2020 Active take 1 puff(s) by in halation every four hours albuterol HFA (Ventolin HFA) 90 mcg/act inhaler Inhale 1 puff every 4 (four) hours if needed Active take 2 puff(s) by in halation [...] Orally Once a day Active bifidobacterium animalis [id number] unt / lactobacillus acidophilus [id number] unt oral capsule (5 sources) take 1 capsule by mouth once daily probiotic (ALIGN/RISAQUAD) CAPS capsule Take 1 capsule by mouth daily ALIGN Active bifidobacterium infantis 4 mg oral capsule (20 sources) Start: 01-07-2023 take 1 capsule by mouth once daily Bifidobacterium Infantis (Align) 4 mg capsule Active 4 MG PO Daily April 29, 2023 12:00am blood-glucose meter (TRUE METRIX GLUCOSE METER) misc (8 sources) Start: 06-17-2018 blood-glucose meter (TRUE METRIX GLUCOSE METER) misc use to test BLOOD SUGAR TWICE DAILY 1 each 06/17/2018 Active Start: 06-17-2018 blood-glucose meter (TRUE METRIX GLUCOSE METER) misc use to test BLOOD SUGAR TWICE DAILY 1 each 0 06/17/2018 Active cetirizine hydrochloride 10 mg oral tablet (17 sources) Histamine-1 Receptor Antagonist Start: 02-06-2020 take 1 tablet by mouth once daily cetirizine (ZyrTEC) 10 mg tablet TAKE 1 TABLET BY MOUTH DAILY 30 tablet 5 02/06/2020 Active cholecalciferol 0.05 mg oral capsule (20 sources) Vitamin D Start: 05-21-2023 take 1 capsule by mouth once daily Cholecalciferol (Vitamin D3) 50 mcg (2,000 unit) capsule Active 2000 UNIT PO Daily May 20, 2023 11:00pm Start: 04-09-2021 take 1 capsule by mo ut in the morning cholecalciferol (Vitamin D-3) 50 MCG (1999 UT) capsule Take 2,000 Units by mouth in the morning. 02/24/2023 Active take 1 capsule by mo uth [...] clindamycin (CLEOCIN) capsul e 450 mg cyclobenzaprine hydrochloride 10 mg oral tablet (8 sources) Muscle Relaxant Start: 11-16-2023 take 1 tablet by mouth three times daily as needed for muscle spasms cyclobenzaprine (Flexeril) 10 MG tablet Take 10 mg by mouth 3 (three) times a day as needed for muscle spasms 11/16/2023 Active Cyclobenzaprine HCl (FLEXERIL PO) Take by mouth in the morning and at bedtime Take 2 at night and 1 every morning Active diclofenac sodium 75 mg delayed release oral tablet (8 sources) Nonsteroidal Anti-inflammatory Drug Start: 11-16-2023 take 1 tablet by mouth twice daily as needed diclofenac (Voltaren) 75 MG EC tablet Take 75 mg by mouth 2 (two) times a day as needed 11/16/2023 Active Diclofenac Sodiu m (VOLTAREN PO) Take by mouth in the morning and at bedtime One every morning and two every night Active trulicity 3 mg/0.5ml solution pen-injector (8 sources) GLP-1 Receptor Agonist Trulicity 3 MG/0.5ML as directed Subcutaneous WEEKLY Active DULoxetine 60 mg delayed release oral capsule (20 sources) Serotonin and Norepinephrine Reuptake Inhibitor Start: 10-15-19 take 1 capsule by mouth once daily Duloxetine 60 mg capsule,delayed release(DR/EC) Active 60 MG PO Daily October 14, 2023 11:00pm Start: 05-21-2023 take 30 mg by mouth [...] tablet Active 25 MG PO Daily May 19, 2023 11:00pm etonogestrel 68 mg drug implant (20 sources) Progestin Start: 10-14-2018 Nexplanon 68 mg subcutaneous implant Refills(s) 0 Start Date: 10/14/18 Status: Ordered inject 68 mg by subc utaneous injection once etonogestrel-eluting (Nexplanon) 68 mg contraceptive implant Inject 68 mg under the skin 1 (one) time Active Etonogestrel (Nexplanon) 68 mg implant (2 sources) Start: 05-20-2023 Etonogestrel ( Nexplanon) 68 mg implant Active 68 MG SUBDERMAL As Directed May 19, 2023 11:00pm Start: 05-20-2023 Etonogestrel ( Nexplanon) 68 mg implant Active 68 MG SUBDERMAL As Directed May 20, 2023 12:00am famotidine 40 mg oral tablet (20 sources) Histamine-2 Receptor Antagonist Start: 05-20-2023 take 1 tablet by mouth once daily Famotidine 40 mg tablet Active 40 MG PO Daily May 19, 2023 11:00pm Start: 10-14-2018 take 1 tablet by elan th twice daily famotidine (PEPCID) 20 mg tablet TAKE 1 TABLET BY MOUTH TWICE DAILY 60 tablet 5 04/09/2020 Active take 2 tablets by mo uth once daily famotidine (PEPCID) 20 MG tablet Take 2 tablets by mouth daily Active ferrous sulfate 325 mg oral tablet (20 sources) Start: 04-09-2020 take 1 tablet by mouth once daily ferrous sulfate 325 (65 FE) mg tablet TAKE 1 TABLET BY MOUTH DAILY 30 tablet 5 04/09/2020 Active fexofenadine hydrochloride 180 mg oral tablet (20 sources) Histamine-1 Receptor Antagonist Start: 02-24-2023 take 1 tablet by mouth once daily Fexofenadine 180 mg tablet Active 180 MG PO Daily May 20, 2023 11:00pm take 1 tablet by mouth in the mo rning fexofenadine (ROS) 60 mg tablet Take 1 tablet (60 mg total) by mouth in the morning. Active FLUoxetine 60 mg oral tablet (20 sources) Serotonin Reuptake Inhibitor Start: 10-15-2023 take 1 tablet by mouth once daily Fluoxetine 60 mg tablet Active 60 MG PO Daily October 14, 2023 11:00pm Start: 07-14-2019 End: 10-15-2023 take 1 capsule by mouth once daily Fluoxetine 40 mg capsule Discontinued 40 MG PO Daily May 19, 2023 11:00pm October 15, 2023 8:28am take 3 capsules by m outh once daily FLUoxetine (PROZAC) 20 MG capsule Take 3 capsules by mouth daily Active fluticasone propionate 0.05 mg/actuat metered dose nasal spray (20 sources) Corticosteroid Start: 07-16-2020 take 2 spray(s) nasal route once daily fluticasone propionate (FLONASE) 50 mcg/actuation nasal spray instill 2 (TWO) sprays in EACH nostril ONCE DAILY 16 g 07/16/2020 Active take 1 spray(s) nasal route once daily fluticasone (Flonase) 50 MCG/ACT nasal spray Administer 1 spray into each nostril 1 (one) time each day at the same time Active Flonase PRN Acti ve gabapentin 300 mg oral capsule (20 sources) Anti-epileptic Agent Start: 08-13-2023 gabapenti n (Neurontin) 300 MG capsule Indications: Paresthesias 1 po 2-3 times a day. 90 capsule 2 08/13/2023 Active Start: 05-21-2023 take 3 capsules by m outh twice daily Gabapentin 100 mg capsule Active 300 MG PO Twice daily May 21, 2023 9:21am Start: 05-21-2023 take 300 mg by mouth twice eduardo ly Gabapentin Active 300 MG PO Twice daily May 21, 2023 10:21am Start: 10-14-2018 End: 05-21-2023 take 1 capsule by mouth twice daily Gabapentin 100 mg capsule Discontinued 100 MG PO Twice daily May 19, 2023 11:00pm May 21, 2023 9:34am take 3 capsules by m outh three times daily gabapentin (NEURONTIN) 100 MG capsule Take 3 capsules by mouth 3 times daily. Active take 2 capsules by m outh every twenty-four hours Gabapentin 100 MG 2 CAPSULES Orally Once a day Active hydrocortisone 10 mg/ml / neomycin 3.5 mg/ml / polymyxin b [id number] unt/ml otic solution (1 source) Aminoglycoside Antibacterial, Polymyxin-class Antibacterial, Corticosteroid Start: 10-22-2021 End: 10-29-2021 cvbviauv-fjmmnkgql-jrmodueoa isone (CORTISPORIN) 3.5-44057-[address] 4 drops into the left ear 3 times daily for 7 days Instill into left Ear TID x 7 days 10 mL 0 10/22/2021 10/29/2021 Active hydrOXYzine hydrochloride 25 mg oral tablet (17 sources) Antihistamine Start: 10-21-2017 take 1 tablet [...] Start: 02-13-2019 take 1 tablet by mouth once daily Lamotrigine 200 mg tablet Active 200 MG PO Daily May 19, 2023 11:00pm linaclotide 0.29 mg oral capsule (13 sources) Guanylate Cyclase-C Agonist Start: 05-21-2023 take 1 capsule by mouth once daily in the morning Linaclotide (Linzess) 290 mcg capsule Active 290 MCG PO Every morning May 20, 2023 11:00pm 3 ml liraglutide 6 mg/ml pen injector (13 sources) GLP-1 Receptor Agonist Start: 05-21-2023 Liraglutide (Victoza 2-Ramon) 0.6 mg/0.1 mL (18 mg/3 mL) pen injector Active MG SUBCUT May 20, 2023 11:00pm Start: 05-19-2023 inject 1.8 mg by sub cutaneous injection once daily Victoza 18 MG/3ML injection Inject 1.8 mg under the skin Daily 05/19/2023 Active lisdexamfetamine dimesylate 70 mg oral capsule (20 sources) Central Nervous System Stimulant Start: 01-09-2022 take 1 capsule by mouth once daily Lisdexamfetamine 70 mg capsule Active 70 MG PO Daily May 19, 2023 11:00pm lurasidone hydrochloride 120 mg oral tablet (20 sources) Atypical Antipsychotic Start: 10-15-2023 take 1 tablet by mouth once daily Lurasidone 120 mg tablet Active 120 MG PO Daily October 14, 2023 11:00pm Start: 01-19-2020 End: 10-15-2023 take 1 tablet by mouth once daily Lurasidone 80 mg tablet Discontinued 80 MG PO Daily May 19, 2023 11:00pm October 15, 2023 8:30am lurasidone (Latu da) 120 MG tablet Take 80 mg by mouth Daily Take with food. Active meloxicam 15 mg oral tablet (20 sources) Nonsteroidal Anti-inflammatory Drug Start: 05-21-2023 take 2 tablets by mouth once daily Meloxicam 15 mg tablet Active 30 MG PO Daily May 20, 2023 11:00pm Start: 05-21-2023 take 30 mg by mouth once daily Meloxicam Active 30 MG PO Daily May 21, 2023 12:00am take 1 tablet by elan th in the morning meloxicam (Mobic) 15 MG tablet Take 15 mg by mouth in the morning. Active 10 ml methocarbamol 100 mg/ml injection (18 sources) Muscle Relaxant Start: 10-14-2018 Robaxin 100 [...] BY MOUTH NIGHTLY 30 tablet 07/16/2020 Active Multiple Vitamin (Tab-A-Karely) tablet (6 sources) Start: 12-26-2022 take 1 tablet by mouth in the morning Multiple Vitamin (Tab-A-Karely) tablet Take 1 tablet by mouth in the morning. 12/26/2022 Active ynnmgtgd-fomd-PE-c alcium &mins (THERAGRAN-M) 9 mg iron-400 mcg tablet (8 sources) vppwjlce-elvq-KD -c alcium &mins (THERAGRAN-M) 9 mg iron-400 mcg tablet Take 1 tablet by mouth in the morning. Active vnmenzwo-jmfj-YS -calcium &mins (THERAGRAN-M) 9 mg iron-400 mcg tablet Take 1 tablet by mouth in the morning. 0 Active Multivitamin preparation (20 sources) Multivitamin Act amaury Multivitamin With Folic Acid (Daily-Karely (With Folic Acid)) 400 mcg tablet (2 sources) Start: 05-20-2023 Multivitamin W ith Folic Acid (Daily-Karely (With Folic Acid)) 400 mcg tablet Active TAB PO May 19, 2023 11:00pm Start: 05-20-2023 Multivitamin W ith Folic Acid (Daily-Karely (With Folic Acid)) 400 mcg tablet Active TAB PO May 20, 2023 12:00am mupirocin 0.02 mg/mg topical ointment (7 sources) RNA Synthetase Inhibitor Antibacterial Start: 03-03-2024 mupirocin (Bactr oban) 2 % ointment Indications: Chronic rhinitis apply to left nose TWICE DAILY for 2 (TWO) weeks NEEDED 15 g 2 03/03/2024 Active Start: 03-16-2023 End: 03-03-2024 mupirocin (Bactroban) 2 % oi ntment Indications: Chronic rhinitis Apply to left nose 2 times daily 2 weeks as needed 15 g 2 03/16/2023 03/03/2024 Discontinued naproxen 500 mg oral tablet (20 sources) Nonsteroidal Anti-inflammatory Drug Start: 12-02-2022 take 1 tablet by mouth in the morning naproxen (Naprosyn) 500 MG tablet Take 500 mg by mouth in the morning and 500 mg in the evening. Take with meals. 12/02/2022 Active Start: 12-02-2022 take 1 tablet by [...] nostrils 3 times a day 0 Active nystatin 406333 unt/ml topical cream (6 sources) Polyene Antifungal Start: 01-20-2023 nystatin (Mycostatin) cream Apply topically if needed 01/20/2023 Active omeprazole 20 mg delayed release oral capsule (14 sources) Proton Pump Inhibitor take 2 capsules by mouth once daily omeprazole (PRILOSEC) 20 MG delayed release capsule Take 40 mg by mouth daily Active pioglitazone 30 mg oral tablet (20 sources) Peroxisome Proliferator Receptor alpha Agonist, Peroxisome Proliferator Receptor gamma Agonist, Thiazolidinedione Start: 05-10-2020 take 1 tablet by mouth once daily Pioglitazone 30 mg tablet Active 30 MG PO Daily May 19, 2023 11:00pm plecanatide 3 mg oral tablet (6 sources) Start: 02-27-2023 take 1 tablet by mouth in the morning TRULANCE 3 mg tablet Take 1 tablet by mouth in the morning. 02/27/2023 Active Start: 02-05-2023 take 1 tablet by elan th every twenty-four hours Trulance 3 MG 1 tablet Orally Once a day for 30 days Jan, Active polyethylene glycol 3350 [id number] mg / potassium chloride 2970 mg / sodium bicarbonate 6740 mg / sodium chloride 5860 mg / sodium sulfate 16728 mg powder for oral solution (2 sources) [...] Nausea, # 20 tab(s), Refills(s) 0, Pharmacy: [id number], [id number], cm, 03/10/19 12:21:00 EST, Height/Length Measured, 100.7, kg, 03/10/19 12:21:00 EST, Weight Measured Start Date: 06/13/19 Status: Ordered rizatriptan 10 mg oral tablet (20 sources) Serotonin-1b and Serotonin-1d Receptor Agonist Start: 06-02-2022 Rizatriptan (Maxalt) 10 mg tablet Active 10 MG PO . NEEDED May 19, 2023 11:00pm Start: 01-16-2019 take 1 tablet by elan th every two hours, then take 2 tablets by mouth once daily rizatriptan (MAXALT) 10 mg tablet TAKE 1 TABLET BY MOUTH at onset of migraine, may repeat after 2 hours if needed (max 2 tablets per day, 2 days per week) 2 01/16/2019 Active rosuvastatin 10 mg oral capsule (20 sources) HMG-CoA Reductase Inhibitor Start: 05-20-2023 take 1 tablet by mouth once daily Rosuvastatin 10 mg tablet Active 10 MG PO Daily May 19, 2023 11:00pm take 1 tablet by mouth in the mo rning rosuvastatin (Crestor) 10 MG tablet Take 10 mg by mouth in the morning. Active take 1 tablet by mouth once [...] sources) Serotonin-1b and Serotonin-1d Receptor Agonist Start: 02-22-2024 take 1 tablet by mouth once as needed SUMAtriptan (Imitrex) 100 MG tablet Indications: Migraine with aura and without status migrainosus, not intractable (CMS/HCC) TAKE 1 TABLET BY MOUTH 1 time NEEDED FOR MIGRAINE 9 tablet 1 02/22/2024 Active Start: 01-20-2024 End: 02-19-2024 take 1 tablet by mouth once SUMAtriptan (Imitrex) 100 MG tablet Indications: Migraine with aura and without status migrainosus, not intractable (CMS/HCC) Take 1 tablet (100 mg) by mouth 1 (one) time if needed for migraine 9 tablet 01/20/2024 02/19/2024 Active Start: 05-20-2023 take 1 tablet by elan th twice daily as needed Sumatriptan Succinate 100 mg tablet Active 100 MG PO Twice daily as needed May 19, 2023 11:00pm Start: 11-03-2018 SUMAtriptan (I mitrex) 100 MG tablet Indications: Migraine with aura and without status migrainosus, not intractable (CMS/HCC) TAKE 1 TABLET BY MOUTH at the onset OF migraine, may repeat in 2 (TWO) HOURS NEEDED *max OF 2 (TWO) TABLETS per day, twice a week* *MUST LAST 30 DAYS* 9 tablet 2 10/16/2023 Active take 1 tablet by elan th every two hours as needed, then take 1 tablet by mouth twice daily as needed SUMAtriptan Succinate 25 MG 1 tablet at least 2 hours between doses as needed Orally Twice a day Active tamsulosin hydrochloride 0.4 mg oral capsule (1 source) alpha-Adrenergic Theodore Start: 01-08-2024 take 1 capsule by mouth once daily tamsulosin (Flomax) 0.4 MG 24 hr capsule Take 0.4 mg by mouth Daily 01/08/2024 Active temazepam 15 mg oral capsule (17 sources) Benzodiazepine take 1 capsule by mouth once daily as needed for sleep temazepam (RESTORIL) 15 MG capsule Take 15 mg by mouth nightly as needed for Sleep Active terbinafine 250 mg oral tablet (1 source) Allylamine Antifungal Start: 01-21-2024 take 1 tablet by mouth once daily terbinafine (LamISIL) 250 MG tablet Take 250 mg by mouth Daily 01/21/2024 Active tiZANidine 4 mg oral tablet (20 sources) Central alpha-2 Adrenergic Agonist Start: 10-16-2023 take 2 tablets by mouth at bedtime tiZANidine (Zanaflex) 4 MG tablet Indications: Migraine with aura and without status migrainosus, not intractable (CMS/HCC) TAKE 2 TABLETS BY MOUTH AT BEDTIME 60 tablet 2 10/16/2023 Active Start: 05-21-2023 take 2 tablets by mo [facility] once daily at bedtime Tizanidine 4 mg tablet Active 8 MG PO Daily at bedtime May 21, 2023 9:24am Start: 05-21-2023 take 8 mg by mouth o nce daily at bedtime Tizanidine Active 8 MG PO Daily at bedtime May 21, 2023 10:24am Start: 05-08-2021 End: 05-21-2023 take 1 tablet by mouth once daily at bedtime Tizanidine 4 mg tablet Discontinued 4 MG PO Daily at bedtime May 19, 2023 11:00pm May 21, 2023 9:34am Start: 05-08-2021 tiZANidine (ZA NAFLEX) 4 mg tablet Start: 10-14-2018 tizanidine 4 m g oral capsule Refills(s) 0 Start Date: 10/14/18 Status: Ordered take 2 tablets by mo [facility] every twenty-four hours tiZANidine HCl 4 MG 2 tablet Orally daily Active take 1 tablet by elan th every twelve hours tiZANidine HCl 4 MG 1 tablet Orally TWICE A DAY Active topiramate 200 mg oral tablet (17 sources) take 1 tablet by mouth once daily topiramate (TOPAMAX) 200 MG tablet Take 200 mg by mouth daily Active traMADol hydrochloride 50 mg oral tablet (20 sources) Opioid Agonist Start: 01-21-2023 take 1 tablet by mouth once daily as needed Tramadol 50 mg tablet Active 50 MG PO Daily as needed May 19, 2023 11:00pm Ultram Active Trulance 3 MG (1 source) Start: 02-05-2023 take 1 tablet by mouth once daily Trulance 3 MG 1 tablet Orally Once a day for 30 days Jan, Active TRULICITY 3 mg/0.5 mL pen injector (8 sources) Start: 10-15-2022 TRULICITY 3 mg /0.5 mL pen injector Injects on Sundays10/15/2022 Active [...] D Active zonisamide 100 mg oral capsule (17 sources) Anti-epileptic Agent take 1 capsule by mouth once daily zonisamide (ZONEGRAN) 100 MG capsule Take 100 mg by mouth daily Active Completed/Discontinued Medications Medication Drug Class(es) Dates Sig (Normalized) Sig (Original) ascorbic acid 500 mg oral tablet (20 sources) Vitamin C Start: 02-24-2023 take 1 tablet by mouth twice daily Ascorbic Acid (Vitamin C) (Vitamin C) 500 mg tablet Active 500 MG PO Twice daily May 21, 2023 9:20am Start: 02-24-2023 take 1 tablet by elan th in the morning ascorbic acid (Vitamin C) 500 MG tablet Take 500 mg by mouth in the morning and 500 mg before bedtime. 02/24/2023 Active Start: 02-24-2023 End: 05-21-2023 take 1 tablet by mouth once daily Ascorbic Acid (Vitamin C) (Vitamin C) 500 mg tablet Discontinued 500 MG PO Daily May 19, 2023 11:00pm May 21, 2023 9:34am docusate sodium 100 mg oral capsule (20 sources) Start: 01-07-2023 End: 10-28-2023 take 1 capsule by mouth three times daily Docusate Sodium 100 mg capsule Discontinued 100 MG PO Three times daily April 29, 2023 12:00am October 28, 2023 8:30am Start: 01-07-2023 take 3 capsules by m outh every twenty-four hours Docusate Sodium 100 MG 3 CAPSULES Orally Once a day for 30 days Dec, Active Dulaglutide (Trulicity) 3 mg/0.5 mL pen injector (2 sources) Start: 05-20-2023 End: 05-21-2023 Dulaglutide (Trulicity) 3 mg /0.5 mL pen injector Discontinued MG SUBCUT May 19, 2023 11:00pm May 21, 2023 9:20am Start: 05-20-2023 End: 05-21-2023 Dulaglutide (Trulicity) 3 mg /0.5 mL pen injector Discontinued MG SUBCUT May 20, 2023 12:00am May 21, 2023 10:20am Duloxetine 30 mg capsule,delayed release(DR/EC) (1 source) Start: 05-21-2023 End: 10-15-2023 take 1 capsule by mouth once daily Duloxetine 30 mg capsule,delayed release(DR/EC) Discontinued 30 MG PO Daily May 20, 2023 11:00pm October 15, 2023 8:27am Iron (20 sources) Iron Not-Taking/ PRN Iron [...] Subcutaneous Not-Taking Plecanatide (Trulance) 3 mg tablet (2 sources) Start: 05-21-2023 End: 05-21-2023 take 1 tablet by mouth once daily Plecanatide (Trulance) 3 mg tablet Discontinued 3 MG PO Daily May 20, 2023 11:00pm May 21, 2023 10:36am Start: 05-21-2023 End: 05-21-2023 take 1 tablet by mouth once daily Plecanatide (Trulance) 3 mg tablet Discontinued 3 MG PO Daily May 21, 2023 12:00am May 21, 2023 11:36am polyethylene glycol [id number] mg powder for oral solution (7 sources) [...] 55 kg (120 lbs.) and less than traZODone hydrochloride 50 mg oral tablet (20 sources) Serotonin Reuptake Inhibitor Start: 04-17-2020 End: 05-21-2023 take 1 tablet by mouth once daily at bedtime as needed Trazodone 50 mg tablet Discontinued 50 MG PO Daily at bedtime as needed May 19, 2023 11:00pm May 21, 2023 9:34am vitamin B12 (20 sources) Vitamin B12 Vitamin B12 Not-Taking/PRN Vitamin B12 Not- Taking Vitamin B12 Acti ve Problems Active Problems Problem Classification Problem Date Documented Da te Episodic/Chronic Anxiety disorders (20 sources) Posttraumatic stress disorder; Translations: [Post-traumatic stress disorder, unspecified] Onset: 06-16-2018 Chronic Asthma (6 sources) Asthma; Translations: [Unspecified asthma, uncomplicated] Onset: 03-10-2023 03-10-2023 Chronic Attention-deficit, conduct, and disruptive behavior disorders (20 sources) Attention deficit hyperactivity disorder; Translations: [Attention-deficit hyperactivity disorder, unspecified type] 05-20-2023 Chronic Attention-deficit, conduct, and disruptive behavior disorders (9 sources) Attention-deficit hyperactivity disorder, unspecified type; Translations: [Attention deficit disorder with hyperactivity] Chronic Calculus of urinary tract (9 sources) Personal history of urinary calculi; Translations: [History of calculus of kidney] Episodic Conditions associated with dizziness or vertigo [...] Translations: [Type 2 diabetes mellitus with hyperglycemia] Onset: 02-11-2024 Chronic Diabetes mellitus without complication (14 sources) 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; Translations: [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s] Onset: 11-10-2017 11-10-2017 Chronic Disorders of lipid metabolism (2 sources) Hyperlipidemia; Translations: [Hyperlipidemia, unspecified] Onset: 02-11-2024 02-11-2024 Chronic Diverticulosis and diverticulitis (14 sources) Diverticulitis; Translations: [Diverticulitis of intestine, part unspecified, without perforation or abscess without bleeding] Onset: 03-10-2023 01-02-2020 Chronic Gastrointestinal hemorrhage (1 source) Hemorrhage of anus and rectum Episodic Headache; including migraine (2 sources) Tension-type headache; Translations: [Tension-type headache, unspecified, not intractable] 11-30-2023 Chronic Impulse control disorders, NEC (1 source) Impulse control disorder; Translations: [Impulse disorder, unspecified] Chronic Mood disorders (2 sources) Mixed bipolar affective disorder, moderate; Translations: [Bipolar disorder, current episode mixed, moderate] Chronic Nausea and vomiting (1 source) Nausea 11-26-2018 Episodic Nonspecific chest pain (5 sources) Chest pain, unspecified; Translations: [Chest pain] Onset: 10-05-2023 10-15-2023 Episodic Nutritional deficiencies (2 sources) Vitamin D deficiency; Translations: [Vitamin D deficiency, unspecified] Onset: 02-11-2024 02-11-2024 Chronic Osteoarthritis (6 sources) Osteoarthritis of joint of left ankle and/or foot; Translations: [Primary osteoarthritis, left ankle and foot] Onset: 03-10-2023 03-10-2023 Chronic Other ear and sense organ disorders (1 source) Acute otitis externa; Translations: [Diffuse otitis externa, left ear] Episodic Other endocrine disorders (20 sources) Reactive hypoglycemia; Translations: [Other hypoglycemia] 05-20-2023 Chronic Other endocrine disorders (8 sources) Other hypoglycemia Chronic Other gastrointestinal disorders (2 sources) Irritable bowel syndrome; Translations: [Irritable bowel syndrome without diarrhea] 05-21-2023 Chronic Other gastrointestinal disorders (2 sources) Irritable bowel syndrome without diarrhea; Translations: [Irritable bowel syndrome] 05-21-2023 Chronic Other gastrointestinal disorders (1 source) Intestinal malabsorption, unspecified; Translations: [Intestinal malabsorption, unspecified] Onset: 12-21-2023 Chronic Other gastrointestinal disorders (11 sources) Constipation; Translations: [Constipation, unspecified] 03-02-2023 Episodic [...] work type] Chronic Other nervous system disorders (2 sources) Paresthesia; Translations: [Paresthesia of skin] 11-30-2023 Episodic Other nutritional; endocrine; and metabolic disorders (20 sources) Obesity; Translations: [Obesity, unspecified] Onset: 03-10-2023 05-20-2023 Chronic Other nutritional; endocrine; and metabolic [...] metabolic disorders (4 sources) Body mass index 30+ - obesity; Translations: [Body mass index (BMI) 36.0-36.9, adult] 06-05-2023 Chronic Other screening for suspected conditions (not mental disorders or infectious disease) (20 sources) Elevated liver enzymes level; Translations: [Abnormal results of liver function studies] Onset: 02-25-2022 Episodic Other upper respiratory disease (7 sources) Chronic rhinitis; Translations: [Chronic rhinitis] Onset: 03-10-2023 03-10-2023 Chronic Residual codes; unclassified (4 sources) Obstructive sleep apnea (adult) (pediatric); Translations: [OBSTRUCTIVE SLEEP APNEA] Onset: 05-07-2022 Chronic Residual codes; unclassified (3 sources) Obstructive sleep apnea syndrome; Translations: [Obstructive sleep apnea (adult) (pediatric)] 11-30-2023 Chronic Residual codes; unclassified (1 source) Pain, [...] Onset: 09-21-2017 01-11-2018 Chronic Unclassified (1 source) New Patient Onset: 10-08-2023 Unclassified (1 source) Hemorrhage of anus and rectum; Translations: [Hemorrhage of anus and rectum] Onset: 03-18-2023 Past or Other Problems Problem Classification Problem Date Documented Da te Episodic/Chronic Abdominal pain (2 sources) Unspecified abdominal pain; Translations: [Epigastric pain] Onset: 10-06-2023 Episodic Administrative/social admission (2 sources) Persons encountering health services in other specified circumstances; Translations: [Persons encountering health services in other specified circumstances] Onset: 07-29-2023 Episodic Biliary tract disease (14 sources) Acute cholecystitis; Translations: [Acute cholecystitis] Onset: 09-15-2016 09-15-2016 Episodic Complications of surgical procedures or medical care (14 sources) Abscess; Translations: [Infection following a procedure, other surgical site, initial encounter] Onset: 09-28-2016 Resolved: 03-10-2023 09-28-2016 Episodic Deficiency and other anemia (6 sources) Anemia; Translations: [Anemia, unspecified] Onset: 03-10-2023 03-10-2023 Episodic E Codes: Fall (2 sources) Unspecified fall due to ice and snow, initial encounter; Translations: [Fall from other slipping, tripping, or stumbling] Onset: 04-20-2023 04-20-2023 Episodic Immunizations and screening for infectious disease (1 source) Encounter for screening for other viral diseases; Translations: [ENC SCREENING FOR OTH VIRAL DZ] Onset: 02-25-2022 Episodic Lymphadenitis (14 sources) Axillary lymphadenopathy; Translations: [Localized enlarged lymph nodes] Onset: 05-10-2020 05-10-2020 Episodic Mood disorders (8 sources) Mood disorders Onset: 05-02-2020 05-02-2020 Nonmalignant breast conditions (20 sources) Large breast; Translations: [Hypertrophy of breast] Onset: 06-02-2023 Resolved: 02-18-2024 06-02-2023 Episodic Open wounds of extremities (6 sources) Open wound of toe without complication; Translations: [Unspecified open wound of unspecified toe(s) without damage to nail, initial encounter] Onset: 03-10-2023 Resolved: 03-10-2023 03-10-2023 Episodic Other connective tissue disease (1 source) Pain in left foot; Translations: [PAIN IN LEFT FOOT] Onset: 02-01-2022 Episodic Other connective tissue disease (6 sources) Pain in both feet; Translations: [Pain in right foot] Onset: 03-10-2023 03-10-2023 Episodic Other gastrointestinal disorders (7 sources) Constipation, [...] IN LEFT ANKLE] Onset: 01-29-2022 Episodic Other upper respiratory disease (6 sources) Epistaxis; Translations: [Epistaxis] Onset: 03-10-2023 03-10-2023 Episodic Residual codes; unclassified (6 sources) Flushing; Translations: [Flushing] Onset: 03-10-2023 Resolved: 03-10-2023 03-10-2023 Episodic Spondylosis; intervertebral disc disorders; other back problems (20 sources) 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; Translations: [Intervertebral disc 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] Onset: 12-02-2022 Resolved: 02-18-2024 12-16-2022 Episodic Sprains and strains (2 sources) Strain of neck muscle; Translations: [Strain of muscle, fascia and tendon at neck level, initial encounter] Onset: 04-20-2023 04-20-2023 Episodic Unclassified (8 sources) Onset: 02-10-2020 02-10-2020 Results Test Name Value Interpretation Reference Range Facility Strep A Culture Onlyon 03-09 Strep A Culture Only No Group A Beta Streptococcus Isolated 2 Days PERFORMED BY: [place] [address] PATHOLOGIST [place] DALIA SEARS M.D. Normal [facility] Comment on above: Performed By: #### C USTA #### [address] CBC with Auto Differentialon 01-13-2024 Basophils (Bld) [#/Vol] 0.06 10*3/uL [facility] Basophils/100 WBC (Bld) 0 % 0 - 2 % [facility] Eosinophils (Bld) [#/Vol] 0.10 10*3/uL [facility] Eosinophils/100 WBC (Bld) 1 % 1 - 4 % [facility] Erythrocyte distribution width (RBC) [Ratio] 13.6 % 11.8 - 14.4 % [facility] Hematocrit (Bld) [Volume fraction] 43.3 % 36.3 - 47.1 % [facility] Hemoglobin (Bld) [Mass/Vol] 14.0 g/dL 11.9 - 15.1 g/dL [facility] Immature granulocytes (Bld) [#/Vol] 0.10 10*3/uL [facility] Immature granulocytes/100 WBC (Bld) 1 % High 0 [facility] Interpretation and review of laboratory results Abnormal [facility] Lymphocytes/100 WBC (Bld) 22 % Low 24 - 43 % [facility] Lymphocytes/100 WBC (Bld) 2.98 % [facility] MCH (RBC) [Entitic mass] 28.5 pg 25.2 - 33.5 pg [facility] MCHC (RBC) [Mass/Vol] 32.3 g/dL 28.4 - 34.8 g/dL [facility] MCV (RBC) [Entitic vol] 88.2 fL 82.6 - 102.9 fL [facility] Monocytes/100 WBC (Bld) 8 % 3 - 12 % [facility] Monocytes/100 WBC (Bld) 1.12 % [facility] Neutrophils/100 WBC (Bld) 68 % High 36 - 65 % [facility] Nucleated RBC/100 WBC (Bld) [Ratio] 0.0 % 0.0 per 100 WBC [facility] Platelet mean volume (Bld) [Entitic vol] 10.0 fL 8.1 - 13.5 fL [facility] Platelets (Bld) [#/Vol] 452 10*3/uL [facility] RBC (Bld) [#/Vol] 4.91 10*6/uL 3.95 - 5.11 m/uL [facility] Segmented neutrophils/100 WBC (Bld) 9.08 % High [facility] WBC other (Bld) [#/Vol] 13.4 High [facility] CBC with Diffon 01-13-2024 Abs. Basophil 0.06 k/uL Normal 0.00-0.20 [facility] Comment on above: Performed By: #### C DP, CP #### [facility] [address] [place] [address] [place] [address] [employer] Officer: Domenica Velázquez MD Abs.Imm.Granulocyte 0.10 k/uL Normal 0.00-0.30 [facility] Comment on above: Performed By: #### C DP, CP #### [address] [place] [id number] [employer] Officer: Domenica Velázquez MD Abs.Neutrophil (Seg) 9.08 k/uL High 1.50-8.10 [facility] Comment on above: Performed By: #### C DP, CP #### [address] [place], [place] [address] [employer] Officer: Domenica Velázquez MD Basophils/100 WBC (Bld) 0 % Normal 0-2 [facility] Comment on above: Performed By: #### C DP, CP #### [address] [place], [facility] [employer] Officer: Domenica Velázquez MD Eosinophils (Bld) [#/Vol] 0.10 10*3/uL Normal 0.00-0.44 [facility] Comment on above: Performed By: #### C DP, CP #### [address] [place], [place] [id number] [employer] Officer: Domenica Velázuqez MD Eosinophils/100 WBC (Bld) 1 % Normal 1-4 [facility] Comment on above: Performed By: #### C DP, CP #### [facility] [address] [place], [place] [id number] [employer] Officer: Domenica Velázquez MD Erythrocyte distribution width (RBC) [Ratio] 13.6 % Normal 11.8-14.4 [facility] Comment on above: Performed By: #### C DP, CP #### [facility] [address] [place], [place] [id number] [employer] Officer: Domenica Velázquez MD Hematocrit (Bld) [Volume fraction] 43.3 % Normal 36.3-47.1 [facility] Comment on above: Performed By: #### C DP, CP #### [address] [place], [place] [address]183 [employer] Officer: Domenica Velázquez MD Hemoglobin (Bld) [Mass/Vol] 14.0 g/dL Normal 11.9-15.1 [facility] Comment on above: Performed By: #### C DP, CP #### [address] [place], [place] [id number] [employer] Officer: Domenica Velázquez MD Immature granulocytes/100 WBC (Bld) 1 % High 0 [facility] Comment on above: Performed By: #### C DP, CP #### [address] [place], [place] [id number] [employer] Officer: Domenica Velázquez MD Lymphocytes (Bld) [#/Vol] 2.98 10*3/uL Normal 1.10-3.70 [facility] Comment on above: Performed By: #### C DP, CP #### [facility] [address] [place], [place] [id number] [employer] Officer: Domenica Velázquez MD Lymphocytes/100 WBC (Bld) 22 % Low 24-43 [facility] Comment on above: Performed By: #### C DP, CP #### [facility] [address] [place] [address] [employer] Officer: Domenica Velázquez MD MCH (RBC) [Entitic mass] 28.5 pg Normal 25.2-33.5 [facility] Comment on above: Performed By: #### C DP, CP #### [address] [place], [place] [id number] [employer] Officer: Domenica Velázquez MD MCHC (RBC) [Mass/Vol] 32.3 g/dL Normal 28.4-34.8 [facility] Comment on above: Performed By: #### C DP, CP #### [address] [place], [place] [id number] [employer] Officer: Domenica Velázquez MD MCV (RBC) [Entitic vol] 88.2 fL Normal 82.6-102.9 [facility] Comment on above: Performed By: #### C DP, CP #### [address] [place], [facility] [employer] Officer: Domenica Velázquez MD Monocytes (Bld) [#/Vol] 1.12 10*3/uL Normal 0.10-1.20 [facility] Comment on above: Performed By: #### C DP, CP #### [address] [place] [address] [employer] Officer: Domenica Velázquez MD Monocytes/100 WBC (Bld) 8 % Normal 3-12 [facility] Comment on above: Performed By: #### C DP, CP #### [facility] [address] [place] [address] [place], [place] [id number] [employer] Officer: Domenica Velázquez MD Neutrophil (Seg) 68 % High 36-65 [facility] Comment on above: Performed By: #### C DP, CP #### [address] [place], [place] [id number] [employer] Officer: Domenica Velázquez MD NRBC Automated 0.0 per 100 WBC Normal 0.0 [facility] Comment on above: Performed By: #### C DP, CP #### [facility] [address] [place], [place] [id number] [employer] Officer: Domenica Velázquez MD Platelet mean volume (Bld) [Entitic vol] 10.0 fL Normal 8.1-13.5 [facility] Comment on above: Performed By: #### C DP, CP #### [facility] [address] [place], [place] [id number] [employer] Officer: Domenica Velázquez MD Platelets (Bld) [#/Vol] 452 10*3/uL Normal 138-453 [facility] Comment on above: Performed By: #### C DP, CP #### [facility] [address] [place], [place] [id number] [employer] Officer: Domenica Velázquez MD RBC (Bld) [#/Vol] 4.91 10*6/uL Normal 3.95-5.11 [facility] Comment on above: Performed By: #### C DP, CP #### [facility] [address] [place], [place] [id number] [employer] Officer: Domenica Velázquez MD WBC (Bld) [#/Vol] 13.4 10*3/uL High 3.5-11.3 [facility] Comment on above: Performed By: #### C DP, CP #### [facility] [address] [place], [facility] [employer] Officer: Domenica Velázquez MD [facility] Albumin [Mass/Vol] 4.4 g/dL 3.5 - 5.2 g/dL [facility] Albumin/Globulin [Mass ratio] 1.3 {ratio} 1.0 - 2.5 [facility] ALP [Catalytic activity/Vol] 87 U/L 35 - 104 U/L [facility] ALT [Catalytic activity/Vol] 25 U/L 10 - 35 U/L [facility] Anion gap [Moles/Vol] 11 mmol/L 9 - 16 mmol/L [facility] AST [Catalytic activity/Vol] 17 U/L 10 - 35 U/L [facility] Bilirubin [Mass/Vol] mg/dL 0.00 - 1.20 mg/dL [facility] Calcium [Mass/Vol] 9.9 mg/dL 8.6 - 10. 4 mg/dL [facility] Chloride [Moles/Vol] 101 mmol/L 98 - 10 7 mmol/L [facility] CO2 [Moles/Vol] 25 mmol/L 20 - 31 mmol/L [facility] Creatinine [Mass/Vol] 0.7 mg/dL 0.50 - 0.90 mg/dL [facility] EstEmily Rate - PINF [facility] Comment on above: These results are not [...] 112 mg/dL High 74 - 99 mg/dL [facility] Interpretation and review of laboratory results Abnormal [facility] Potassium [Moles/Vol] 4.2 mmol/L 3.7 - 5.3 mmol/L [facility] Protein [Mass/Vol] 7.8 g/dL 6.6 - 8.7 g/dL [facility] Sodium [Moles/Vol] 137 mmol/L 136 - 145 mmol/L [facility] Urea nitrogen [Mass/Vol] 24 mg/dL High 6 - 20 mg/dL [facility] Urea nitrogen/Creatinine [Mass ratio] 34 mg/mg High 9 - 20 [facility] Comp Metabolic Profon 2023 Albumin [Mass/Vol] 4.4 g/dL Normal 3.5-5.2 [facility] Comment on above: Performed By: #### C DP, CP #### [facility] [address] [place], [place] [id number] [employer] Officer: Domenica Velázquez MD Albumin/Glob Ratio 1.3 Normal 1.0-2.5 [facility] Comment on above: Performed By: #### C DP, CP #### [facility] [address] [place], [place] [address]83 [employer] Officer: Domenica Velázquez MD Alkaline Phos 87 U/L Normal 35-104 [facility] Comment on above: Performed By: #### C DP, CP #### [facility] [address] [place], [place] [id number] [employer] Officer: Domenica Velázquez MD ALT [Catalytic activity/Vol] 25 U/L Normal 10-35 [facility] Comment on above: Performed By: #### C DP, CP #### [facility] [address] [place], [place] [id number] [employer] Officer: Domenica Velázquez MD Anion gap [Moles/Vol] 11 mmol/L Normal 9-16 [facility] Comment on above: Performed By: #### C DP, CP #### [facility] [address] [place], [place] [id number] [employer] Officer: Domenica Velázquez MD AST [Catalytic activity/Vol] 17 U/L Normal 10-35 [facility] Comment on above: Performed By: #### C DP, CP #### [facility] [address] [place], [place] [id number] [employer] Officer: Domenica Velázquez MD Bilirubin [Mass/Vol] mg/dL Normal 0.00-1.20 [facility] Comment on above: Performed By: #### C DP, CP #### [facility] [address] [place], [place] [id number] [employer] Officer: Domenica Velázquez MD BUN/CRE Ratio 34 High 9-20 [facility] Comment on above: Performed By: #### C DP, CP #### [facility] [address] [place], [place] [id number] [employer] Officer: Domenica Velázquez MD Calcium [Mass/Vol] 9.9 mg/dL Normal 8.6-10.4 [facility] Comment on above: Performed By: #### C DP, CP #### [facility] [address] [place], [place] [id number] [employer] Officer: Domenica Velázquez MD Chloride [Moles/Vol] 101 mmol/L Normal 98-107 [facility] Comment on above: Performed By: #### C DP, CP #### [facility] [address] [place], [place] [id number] [employer] Officer: Domenica Velázquez MD CO2 [Moles/Vol] 25 mmol/L Normal 20-31 [facility] Comment on above: Performed By: #### C DP, CP #### [facility] [address] [place], [place] [id number] [employer] Officer: Domenica Velázquez MD Creatinine [Mass/Vol] 0.7 mg/dL Normal 0.50-0.90 [facility] Comment on above: Performed By: #### C DP, CP #### [facility] [address] [place], [place] [address]37[address]83 [employer] Officer: Domenica Velázquez MD GFR/1.73 sq M.predicted among non-blacks MDRD (S/P/Bld) [Vol rate/Area] mL/min/{1.73_m2} Normal >60 [facility] Comment on above: Result Comment: These [...] Performed By: #### C DP, CP #### [facility] [address] [place], [place] [id number] [employer] Officer: Domenica Velázquez MD Glucose [Mass/Vol] 112 mg/dL High 74-99 [facility] Comment on above: Performed By: #### C DP, CP #### [facility] [address] [place], [place] [phone] [employer] Officer: Domenica Velázquez MD Potassium [Moles/Vol] 4.2 mmol/L Normal 3.7-5.3 [facility] Comment on above: Performed By: #### C DP, CP #### [facility] [address] [place], [place] [id number] [employer] Officer: Domenica Velázquez MD Protein [Mass/Vol] 7.8 g/dL Normal 6.6-8.7 [facility] Comment on above: Performed By: #### C DP, CP #### [facility] [address] [place], [place] [id number] [employer] Officer: Domenica Velázquez MD Sodium [Moles/Vol] 137 mmol/L Normal 136-145 [facility] Comment on above: Performed By: #### C DP, CP #### [address] [place], [place] [id number] [employer] Officer: Domenica Velázquez MD Urea nitrogen [Mass/Vol] 24 mg/dL High 6-20 [facility] Comment on above: Performed By: #### C DP, CP #### [facility] [address] [place] [address] [employer] Officer: Domenica Velázquez MD Microscopic Urinalysison Bacteria LM Ql (Urine sed) 1+ Abnormal None [facility] Epithelial cells LM.HPF (Urine sed) [#/Area] 0 TO 2 [facility] Interpretation and review of laboratory results Abnormal [facility] Mucus Ql (Urine sed) TRACE Abnormal None [facility] RBC LM.HPF (Urine sed) [#/Area] 0 TO 2 [facility] [facility] WBC LM.HPF (Urine sed) [#/Area] None [facility] TSHon 01-13-2024 TSH Qn 1.57 m[IU]/L [facility] Thyroid Stim. Horm.on 2023 Thyroid Stim. Horm. 1.57 uIU/mL Normal 0.27-4.20 [facility] Comment on above: Performed By: #### T SH #### [facility] [address] [place], [place] [id number] [employer] Officer: Domenica Velázquez MD UA w/Reflex Cultureon 2023 Bilirubin, SemiQt,Ur Negative Normal NEG [facility] Comment on above: Performed By: #### U MIGUELO UAX #### [facility] [address] [place], [facility] [employer] Officer: Domenica Velázquez MD Blood, Urine Negative Normal NEG [facility] Comment on above: Performed By: #### U MIGUELO UAX #### [facility] [address] [place], [facility] [employer] Officer: Domenica Velázquez MD Clarity (U) Clear Normal CLEAR [facility] Comment on above: Performed By: #### U MIGUELO, UAX #### [facility] [address] [place], [facility] [employer] Officer: Domenica Velázquez MD Color (U) Yellow Normal YEL [facility] Comment on above: Performed By: #### U MIGUELO, UAX #### [facility] [address] [place] [address] [employer] Of [employer] Officer: Domenica Velázquez MD Glucose Ql (U) 3+ mg/dL Abnormal NEG [facility] Comment on above: Performed By: #### U MICAO, UAX #### [facility] [address] [place], [place] [address]83 [employer] Officer: Domenica Velázquez MD Ketones Ql (U) Negative Normal NEG [facility] Comment on above: Performed By: #### U MICAO, UAX #### [facility] [address] [place], [place] [address] [employer] Officer: Domenica Velázquez MD Leukocyte esterase Test strip Ql (U) Negative Normal NEG [facility] Comment on above: Performed By: #### U MICAO, UAX #### [address] [place], [place] [address] [employer] Officer: Domenica Velázquez MD Nitrite,Ur Negative Normal [facility] Comment on above: Performed By: #### U MICAO, UAX #### [facility] [address] [place] [address] Dr. [place], [place] [id number] [employer] Officer: Domenica Velázquez MD PH,Ur 6.0 Normal 5.0-9.0 [facility] Comment on above: Performed By: #### U MICAO, UAX #### [address] [place], [place] 78[address]683 [employer] Officer: Domenica Velázquez MD Protein Ql (U) Negative Normal NEG [facility] Comment on above: Performed By: #### U MICAO, UAX #### [facility] [address] [place] [address] Dr[place], [place] 7817883 [employer] Officer: Domenica Velázquez MD Spec. Abbot,Ur >1.030 High 1.010-1.02 0 [facility] Comment on above: Performed By: #### U MICAO, UAX #### [facility] [address] [place] [address] Dr[address] [place], [place] [phone] [employer] Officer: Domenica Velázquez MD Urobilinogen,Ur Normal Normal 0.0-1.0 [facility] Comment on above: Performed By: #### U MICAO, UAX #### [facility] [address] [place] [address] [employer] Of Natural [employer] Officer: Domenica Velázquez MD Urinalysis with Reflex to Cu ltureon 01-13-2024 Bilirubin Ql (U) Negative NEGATIVE [facility] Clarity (U) Clear Clear [facility] Color (U) Yellow Yellow [facility] Glucose Test strip (U) [Mass/Vol] 3+ Abnormal NEGATIVE mg/dL [facility] Hemoglobin Auto test strip Ql (U) Negative NEGATIVE [facility] Interpretation and review of laboratory results Abnormal [facility] Ketones (U) [Mass/Vol] Negative NEGATIVE mg/dL [facility] Leukocyte esterase Test strip Ql (U) Negative NEGATIVE [facility] Nitrite Ql (U) Negative NEGATIVE [facility] pH (U) 6.0 [pH] 5.0 - 9.0 [facility] Protein (U) [Mass/Vol] Negative NEGATIVE mg/dL [facility] Specific gravity (U) [Rel density] High 1.010 - 1.020 [facility] Urobilinogen Qn (U) Normal 0.0 - 1. 0 EU/dL [facility] Urinalysis,Microon 4 Bacteria 1+ Abnormal NONE [facility] Comment on above: Performed By: #### U MIGUELO, UAX #### [facility] [address] [place] [address] [employer] Of Natural [employer] Officer: Domenica Velázquez MD Epithelial cells LM Ql (Urine sed) 0 TO 2 Normal 0-25 [facility] Comment on above: Performed By: #### U DULCE, UAX #### [facility] [address] [place] [address] Department Of Natural Resources Officer: Domenica Velázquez MD Mucus Strands TRACE Abnormal NONE [facility] Comment on above: Performed By: #### U MIGUELO, UAX #### [facility] [address] [place], [place] 8909383 [employer] Of Natural [employer] Officer: Domenica Velázquez MD Urine RBC's 0 TO 2 Normal 0-2 [facility] Comment on above: Performed By: #### U DULCE, UAX #### [facility] [address] [place], [place] 344[address]83 [employer] Officer: Domenica Velázquez MD Urine WBC's None Normal 0-5 [facility] Comment on above: Performed By: #### Donavon CARDONA, UAX #### [facility] [address] [place], [place] 4227183 [employer] Officer: Domenica Velázquez MD BASIC METABOLIC PANLon 12-20 Anion gap [Moles/Vol] 10 mmol/L Normal 5-15 [facility] Comment on above: Performed By: #### C BCA, BMP, FEPR, 2276-4 #### [facility] ([id number]) [address] [place] [address] Calcium [Mass/Vol] 8.9 mg/dL Normal 8.5-10.5 [facility] Comment on above: Performed By: #### C BCA, BMP, FEPR, 2276-4 #### [facility] ([id number]) [address], [address] [place] [address] Chloride [Moles/Vol] 106 mmol/L Normal 98-109 [facility] Comment on above: Performed By: #### C BCA, BMP, FEPR, 2276-4 #### [facility] ([id number]) [address], [address] [place] [address] CO2 [Moles/Vol] 22 mmol/L Normal 22-32 [facility] Comment on above: Performed By: #### C BCA, BMP, FEPR, 2276-4 #### [facility] ([id number]) [address], [address] [place] [address] Creatinine [Mass/Vol] 0.70 mg/dL Normal 0.40-1.00 [facility] Comment on above: Result Comment: METH OD TRACEABLE TO IDMS STANDARD Performed By: #### C BCA, BMP, FEPR, 2276-4 #### [facility] ([id number]) [address], [address] [place] [address] eGFR (CKD-EPI) NON-RACE DEPENDENT >90 Normal >59 [facility] Comment on above: Result Comment: Reported eGFR is based on the CKD-EPI 2020 equation that does not use a race coefficient. Performed By: #### C BCA, BMP, FEPR, 2276-4 #### [facility] ([id number]) [address], [address] [place] [address] Glucose [Mass/Vol] 89 mg/dL Normal 65-99 [facility] Comment on above: Performed By: #### C BCA, BMP, FEPR, 2276-4 #### [facility] ([id number]) [address], [address] [place] [address] Potassium [Moles/Vol] 4.2 mmol/L Normal 3.5-5.0 [facility] Comment on above: Performed By: #### C BCA, BMP, FEPR, 2276-4 #### [facility] ([id number]) [address], [address] [place] [address] Sodium [Moles/Vol] 138 mmol/L Normal 134-146 [facility] Comment on above: Performed By: #### C BCA, BMP, FEPR, 2276-4 #### [facility] ([id number]) [address], [address] [place] [address] Urea nitrogen [Mass/Vol] 18 mg/dL Normal 5-23 [facility] Comment on above: Performed By: #### C BCA, BMP, FEPR, 2276-4 #### [facility] ([id number]) [address], [address] [place] [address] CBC AND AUTO DIFFon 10-21-20 24 ABSOLUTE BASOPHIL 0.0 X10E9/L Normal 0.0-0.2 [facility] Comment on above: Performed By: #### C BCA, BMP, FEPR, 2275-4 #### [facility] ([id number]) [address], [address] [place] [address] ABSOLUTE NEUTROPHIL 5.7 X10E9/L Normal 1.5-6.6 [facility] Comment on above: Performed By: #### C BCA, BMP, FEPR, 2275- #### [facility] ([id number]) [address], [address] [place] [address] Basophils/100 WBC (Bld) 0.4 % Normal [facility] Comment on above: Performed By: #### C BCA, BMP, FEPR, 2275- #### [facility] ([id number]) [address], [address] [place] [address] Eosinophils (Bld) [#/Vol] 0.1 10*3/uL Normal 0.0-0.4 [facility] Comment on above: Performed By: #### C BCA, BMP, FEPR, 2275- #### [facility] ([id number]) [address], [address] [place] [address] Eosinophils/100 WBC (Bld) 1.2 % Normal [facility] Comment on above: Performed By: #### C BCA, BMP, FEPR, 2275-4 #### [facility] ([id number]) [address] [address] [place] [address] Erythrocyte distribution width (RBC) [Ratio] 14.4 % Normal 11.5-15.0 [facility] Comment on above: Performed By: #### C BCA, BMP, FEPR, 2275- #### [facility] ([id number]) [address] [address] [place] [address] Hematocrit (Bld) [Volume fraction] 37.4 % Normal 35-47 [facility] Comment on above: Performed By: #### C BCA, BMP, FEPR, 6-4 #### [facility] ([id number]) [address] [address] [place] [address] Hemoglobin (Bld) [Mass/Vol] 12.4 g/dL Normal 11.7-15.5 [facility] Comment on above: Performed By: #### C BCA, BMP, FEPR, 2275-4 #### [facility] ([id number]) [address] [address] [place] [address] Lymphocytes (Bld) [#/Vol] 2.4 10*3/uL Normal 1.0-3.5 [facility] Comment on above: Performed By: #### C BCA, BMP, FEPR, 2275-4 #### [facility] ([id number]) [address] [address] [place] [address] Lymphocytes/100 WBC (Bld) 28.1 % Normal [facility] Comment on above: Performed By: #### C BCA, BMP, FEPR, 2275-4 #### [facility] ([id number]) [address] [address] [place] [address] MCH (RBC) [Entitic mass] 28.8 pg Normal 27-34 [facility] Comment on above: Performed By: #### C BCA, BMP, FEPR, 2275-4 #### [facility] ([id number]) [address] [address] [place] [address] MCHC (RBC) [Mass/Vol] 33.1 g/dL Normal 32-36 [facility] Comment on above: Performed By: #### C BCA, BMP, FEPR, 2275-4 #### [facility] ([id number]) [address], [address] [place] [address] MCV (RBC) [Entitic vol] 87 fL Normal 80-100 [facility] Comment on above: Performed By: #### C BCA, BMP, FEPR, 2275-4 #### [facility] ([id number]) [address], [address] [place] [address] Monocytes (Bld) [#/Vol] 0.3 10*3/uL Normal 0-0.9 [facility] Comment on above: Performed By: #### C BCA, BMP, FEPR, 2275- #### [facility] ([id number]) [address], [address] [place] [address] Monocytes/100 WBC (Bld) 3.0 % Normal [facility] Comment on above: Performed By: #### C BCA, BMP, FEPR, 2275- #### [facility] ([id number]) [address], [address] [place] [address] Neutrophils/100 WBC (Bld) 67.3 % Normal [facility] Comment on above: Performed By: #### C BCA, BMP, FEPR, 2275-06 #### [facility] ([id number]) [address], [address] [place] [address] Platelet mean volume (Bld) [Entitic vol] 8.8 fL Normal 7-12 [facility] Comment on above: Performed By: #### C BCA, BMP, FEPR, 2275- #### [facility] ([id number]) [address], [address] [place] [address] Platelets (Bld) [#/Vol] 325 10*3/uL Normal 150-450 [facility] Comment on above: Performed By: #### C BCA, BMP, FEPR, 2275-4 #### [facility] ([id number]) [address] [address] [place] [address] RBC COUNT 4.31 X10E12/L Normal 3.80-5.20 [facility] Comment on above: Performed By: #### C BCA, BMP, FEPR, 6-4 #### [facility] ([id number]) [address] [address] [place] [address] WBC (Bld) [#/Vol] 8.4 10*3/uL Normal 4.0-11.0 [facility] Comment on above: Performed By: #### C BCA, BMP, FEPR, 6-4 #### [facility] ([id number]) [address] [address] [place] [address] FERRITINon 12-21-2023 Ferritin [Mass/Vol] 195 ng/mL Normal 11-307 [facility] Comment on above: Performed By: #### C BCA, CMP, 51380-1, TSHR #### [facility] ([id number]) [address] [address] [place] [address] IRON PROFILEon 12-21-2023 Iron [Mass/Vol] 53 ug/dL Normal 50-170 [facility] Comment on above: Performed By: #### C BCA, BMP, FEPR, 6-4 #### [facility] ([id number]) [address] [address] [place] [address] IRON BINDING 374 ug/dL Normal 250-425 [facility] Comment on above: Performed By: #### C BCA, BMP, FEPR, 2276-4 #### [facility] ([id number]) [address] [address] [place] [address] IRON SATURATION 14 % SATURATION Low 15-50 [facility] Comment on above: Performed By: #### C BCA, BMP, FEPR, 2276-4 #### [facility] ([id number]) [address] [place] [address] CT ABDOMEN PELVIS W IV CONTR Dar [...] significant stool or gas noted. Evidence of [id number] diverticulosis of proximal sigmoid colon and descending [...] Nicole MD 10/07/23 Final result Normal [facility] Comp Metabolic Profon 2023 Albumin [Mass/Vol] 4.1 g/dL Normal 3.5-5.2 [facility] Comment on above: Performed By: #### C DP, TROPI, CP, LIP ####[address] [place] [address] Lab Director: Domenica Velázquez MD Albumin/Glob Ratio 1.4 Normal 1.0-2.5 [facility] Comment on above: Performed By: #### C DP, TROPI, CP, LIP ####[facility] [place] [address] lab Director: Domenica Velázquez MD Alkaline Phos 85 U/L Normal 35-104 [facility] Comment on above: Performed By: #### C DP, TROPI, CP, LIP ####[address] [place] [address] lab Director: Domenica Velázquez MD ALT [Catalytic activity/Vol] 12 U/L Normal 5-33 [facility] Comment on above: Performed By: #### C DP, TROPI, CP, LIP ####[address] , [place] [address] lab Director: Domenica Velázquez MD Anion gap [Moles/Vol] 11 mmol/L Normal 9-17 [facility] Comment on above: Performed By: #### C DP, TROPI, CP, LIP ####[address] , [place] 7207383 lab Director: Domenica Velázquez MD AST [Catalytic activity/Vol] 14 U/L Normal <32 [facility] Comment on above: Performed By: #### C DP, TROPI, CP, LIP ####[address] , [place] 6[address]83 lab Director: Domenica Velázquez MD Bilirubin [Mass/Vol] 0.2 mg/dL Low 0.3-1.2 [facility] Comment on above: Performed By: #### C DP, TROPI, CP, LIP ####[address] , [place] 394[address]83 lab Director: Domenica Velázquez MD BUN/CRE Ratio 30 High 9-20 [facility] Comment on above: Performed By: #### C DP, TROPI, CP, LIP ####[address] , [place] 06[address] lab Director: Domenica Velázquez MD Calcium [Mass/Vol] 8.8 mg/dL Normal 8.6-10.4 [facility] Comment on above: Performed By: #### C DP, TROPI, CP, LIP ####[address] , [place] 9[address]83 lab Director: Domenica Velázquez MD Chloride [Moles/Vol] 103 mmol/L Normal 98-107 [facility] Comment on above: Performed By: #### C DP, TROPI, CP, LIP ####[facility] [place] [address] Lab Director: Domenica Velázquez MD CO2 [Moles/Vol] 25 mmol/L Normal 20-31 [facility] Comment on above: Performed By: #### C DP, TROPI, CP, LIP ####[facility] , [place] [address]83 Lab Director: Domenica Velázquez MD Creatinine [Mass/Vol] 0.6 mg/dL Normal 0.5-0.9 [facility] Comment on above: Performed By: #### C DP, TROPI, CP, LIP ####[address] [place] [address] Lab Director: Domenica Velázquez MD GFR/1.73 sq M.predicted among non-blacks MDRD (S/P/Bld) [Vol rate/Area] mL/min/{1.73_m2} Normal >60 [facility] Comment on above: Result Comment: These [...] By: #### C DP, TROPI, CP, LIP ####[facility] [place] [address] Lab Director: Domenica Velázquez MD Glucose [Mass/Vol] 92 mg/dL Normal 70-99 [facility] Comment on above: Performed By: #### C DP, TROPI, CP, LIP ####[facility] , [place] 3357[address] Lab Director: Domenica Velázquez MD Potassium [Moles/Vol] 3.6 mmol/L Low 3.7-5.3 [facility] Comment on above: Performed By: #### C DP, TROPI, CP, LIP ####[address] , [place] 150[address] Lab Director: Domenica Velázquez MD Protein [Mass/Vol] 7.0 g/dL Normal 6.4-8.3 [facility] Comment on above: Performed By: #### C DP, TROPI, CP, LIP ####[address] [place] [address] Lab Director: Domenica Velázquez MD Sodium [Moles/Vol] 139 mmol/L Normal 135-144 [facility] Comment on above: Performed By: #### C DP, TROPI, CP, LIP ####[address] [place] [address] Lab Director: Domenica Velázquez MD Urea nitrogen [Mass/Vol] 18 mg/dL Normal 6-20 [facility] Comment on above: Performed By: #### C DP, TROPI, CP, LIP ####[address] , [place] 933[address]83 Lab Director: Domenica Velázquez MD Lipaseon 10-07-2023 Lipase [Catalytic activity/Vol] 28 U/L Normal 13-60 [facility] Comment on above: Performed By: #### C DP, TROPI, CP, LIP ####[address] [place] [address] Lab Director: Domenica Velázquez MD Troponinon 10-07-2023 Troponin, High Sens <6 Normal 0-14 [facility] Comment on above: Result Comment: High Sensitivity Troponin values cannot be compared with other Troponin methodologies. Performed By: #### C DP, TROPI, CP, LIP ####[address] [place] [address] Lab Director: Domenica Velázquez MD CBC with Diffon 10-06-2023 Abs. Basophil 0.03 k/uL Normal 0.00-0.20 [facility] Comment on above: Performed By: #### C DP, TROPI, CP, LIP ####[address] [place], [place] [id number])[phone] Director: Domenica Velázquez MD Abs.Imm.Granulocyte 0.03 k/uL Normal 0.00-0.30 [facility] Comment on above: Performed By: #### C DP, TROPI, CP, LIP ####[address] [place], [place] [address])[phone] Director: Domenica Velázquez MD Abs.Neutrophil (Seg) 6.50 k/uL Normal 1.50-8.10 [facility] Comment on above: Performed By: #### C DP, TROPI, CP, LIP ####[address] [place] [id number])[phone] Director: Domenica Velázquez MD Basophils/100 WBC (Bld) 0 % Normal 0-2 [facility] Comment on above: Performed By: #### C DP, TROPI, CP, LIP ####[address] [place] [id number])[phone] Director: Domenica Velázquez MD Eosinophils (Bld) [#/Vol] 0.08 10*3/uL Normal 0.00-0.44 [facility] Comment on above: Performed By: #### C DP, TROPI, CP, LIP ####[address] [place] [phone])[phone] Director: Domenica Velázquez MD Eosinophils/100 WBC (Bld) 1 % Normal 1-4 [facility] Comment on above: Performed By: #### C DP, TROPI, CP, LIP ####[address] [place] [address] [facility] Director: Domenica Velázquez MD Erythrocyte distribution width (RBC) [Ratio] 13.5 % Normal 11.8-14.4 [facility] Comment on above: Performed By: #### C DP, TROPI, CP, LIP ####[address] [place] [address] Lab Director: Domenica Velázquez MD Hematocrit (Bld) [Volume fraction] 40.1 % Normal 36.3-47.1 [facility] Comment on above: Performed By: #### C DP, TROPI, CP, LIP ####[address] [place] [id number] Lab Director: Domenica Velázquez MD Hemoglobin (Bld) [Mass/Vol] 13.4 g/dL Normal 11.9-15.1 [facility] Comment on above: Performed By: #### C DP, TROPI, CP, LIP ####[address] , [facility] Lab Director: Domenica Velázquez MD Immature granulocytes/100 WBC (Bld) 0 % Normal 0 [facility] Comment on above: Performed By: #### C DP, TROPI, CP, LIP ####[address] [place] [address] Lab Director: Domenica Velázquez MD Lymphocytes (Bld) [#/Vol] 2.41 10*3/uL Normal 1.10-3.70 [facility] Comment on above: Performed By: #### C DP, TROPI, CP, LIP ####[address] [place] [address] Lab Director: Domenica Velázquez MD Lymphocytes/100 WBC (Bld) 25 % Normal 24-43 [facility] Comment on above: Performed By: #### C DP, TROPI, CP, LIP ####[address] [facility] Lab Director: Domenica Velázquez MD MCH (RBC) [Entitic mass] 28.6 pg Normal 25.2-33.5 [facility] Comment on above: Performed By: #### C DP, TROPI, CP, LIP ####[address] , [facility]83[facility])[phone] Director: Domenica Velázquez MD MCHC (RBC) [Mass/Vol] 33.4 g/dL Normal 28.4-34.8 [facility] Comment on above: Performed By: #### C DP, TROPI, CP, LIP ####[address] , [facility])[phone] Director: Domenica Velázquez MD MCV (RBC) [Entitic vol] 85.7 fL Normal 82.6-102.9 [facility] Comment on above: Performed By: #### C DP, TROPI, CP, LIP ####[address] , [place] [address])[phone] Director: Domenica Velázquez MD Monocytes (Bld) [#/Vol] 0.69 10*3/uL Normal 0.10-1.20 [facility] Comment on above: Performed By: #### C DP, TROPI, CP, LIP ####[address] , [place] [address])[phone] Director: Domenica Velázquez MD Monocytes/100 WBC (Bld) 7 % Normal 3-12 [facility] Comment on above: Performed By: #### C DP, TROPI, CP, LIP ####[address] , [facility]83[facility])[phone] Director: Domenica Velázquez MD Neutrophil (Seg) 67 % High 36-65 [facility] Comment on above: Performed By: #### C DP, TROPI, CP, LIP ####[address] [place] [address] Lab Director: Domenica Velázquez MD NRBC Automated 0.0 per 100 WBC Normal 0.0 [facility] Comment on above: Performed By: #### C DP, TROPI, CP, LIP ####[address] , [place] [id number] Lab Director: Domenica Velázquez MD Platelet mean volume (Bld) [Entitic vol] 10.5 fL Normal 8.1-13.5 [facility] Comment on above: Performed By: #### C DP, TROPI, CP, LIP ####[address] , [place] [phone] Director: Domenica Velázquez MD Platelets (Bld) [#/Vol] 292 10*3/uL Normal 138-453 [facility] Comment on above: Performed By: #### C DP, TROPI, CP, LIP ####[address] , [facility] Lab Director: Domenica Velázquez MD RBC (Bld) [#/Vol] 4.68 10*6/uL Normal 3.95-5.11 [facility] Comment on above: Performed By: #### C DP, TROPI, CP, LIP ####[address] , [facility]83[facility])[phone] Director: Domenica Velázquez MD WBC (Bld) [#/Vol] 9.7 10*3/uL Normal 3.5-11.3 [facility] Comment on above: Performed By: #### C DP, TROPI, CP, LIP ####[address] , [place] 8982783 Lab Director: Domenica Velázquez MD Basic Metabolic Profon 10-04 Anion gap [Moles/Vol] 10 mmol/L Normal 9-17 [facility] Comment on above: Performed By: #### D BASIA, BMP, CDP, TROPI #### [facility] [address] [place], [place] [address]83 [employer] Officer: Domenica Velázquez MD BUN/CRE Ratio 23 High 9-20 [facility] Comment on above: Performed By: #### D BASIA, BMP, CDP, TROPI #### [facility] [address] [place], [place] 5134883 [employer] Of Natural [employer] Officer: Domenica Velázquez MD Calcium [Mass/Vol] 8.9 mg/dL Normal 8.6-10.4 [facility] Comment on above: Performed By: #### D BASIA, BMP, CDP, TROPI #### [facility] [address] [place], [place] 1065983 [employer] Of Natural [employer] Officer: Domenica Velázquez MD Chloride [Moles/Vol] 105 mmol/L Normal 98-107 [facility] Comment on above: Performed By: #### D BASIA, BMP, CDP, TROPI #### [facility] [address] [place], [place] [id number] [employer] Of [employer] Officer: Domenica Velázquez MD CO2 [Moles/Vol] 26 mmol/L Normal 20-31 [facility] Comment on above: Performed By: #### D BASIA, BMP, CDP, TROPI #### [facility] [address] [place], [place] [phone] [employer] Of Natural [employer] Officer: Domenica Velázquez MD Creatinine [Mass/Vol] 0.6 mg/dL Normal 0.5-0.9 [facility] Comment on above: Performed By: #### D BASIA, BMP, CDP, TROPI #### [facility] [address] [place] [address] [employer] Of Natural Resources Officer: Domenica Velázquez MD GFR/1.73 sq M.predicted among non-blacks MDRD (S/P/Bld) [Vol rate/Area] mL/min/{1.73_m2} Normal >60 [facility] Comment on above: Result Comment: These [...] #### D BASIA, BMP, CDP, TROPI #### [facility] [address] [place] [address] Dr[address] [place], [place] 5891283 [employer] Natural [employer] Officer: Domenica Velázquez MD Glucose [Mass/Vol] 96 mg/dL Normal 70-99 [facility] Comment on above: Performed By: #### D BASIA, BMP, CDP, TROPI #### [address] [place], [place] 3307083 [employer] Of Natural [employer] Officer: Domenica Velázquez MD Potassium [Moles/Vol] 3.8 mmol/L Normal 3.7-5.3 [facility] Comment on above: Performed By: #### D BASIA, BMP, CDP, TROPI #### [address] [place] [address] [employer] Of Natural [employer] Officer: Domenica Velázquez MD Sodium [Moles/Vol] 141 mmol/L Normal 135-144 [facility] Comment on above: Performed By: #### Smiley BASIA, BMP, CDP, TROPI #### [facility] [address] [place] [address] [place] [address] [employer] Of Natural [employer] Officer: Domenica Velázquez MD Urea nitrogen [Mass/Vol] 14 mg/dL Normal 6-20 [facility] Comment on above: Performed By: #### D BASIA, BMP, CDP, TROPI #### [facility] [address] [place] [address] Dr[place], [place] 2208183 [employer] Of Natural [employer] Officer: Domenica Velázquez MD CBC with Diffon 10-05-2023 Abs. Basophil <0.03 Normal 0.00-0.20 [facility] Comment on above: Performed By: #### D BASIA, BMP, CDP, TROPI #### [address] [place] [address] [employer] Of Natural Resources Officer: Domenica Velázquez MD Abs.Imm.Granulocyte 0.03 k/uL Normal 0.00-0.30 [facility] Comment on above: Performed By: #### D BASIA, BMP, CDP, TROPI #### [address] [place] [address] Department Of Natural Resources Officer: Domenica Velázquez MD Abs.Neutrophil (Seg) 5.10 k/uL Normal 1.50-8.10 [facility] Comment on above: Performed By: #### D BASIA, BMP, CDP, TROPI #### [address] [place] [phone] [employer] Natural [employer] Officer: Domenica Velázquez MD Basophils/100 WBC (Bld) 0 % Normal 0-2 [facility] Comment on above: Performed By: #### D BASIA, BMP, CDP, TROPI #### [address] [place] 4878183 [employer] Of Natural [employer] Officer: Domenica Velázquez MD Eosinophils (Bld) [#/Vol] 0.11 10*3/uL Normal 0.00-0.44 [facility] Comment on above: Performed By: #### D BASIA, BMP, CDP, TROPI #### [address] [place], [facility] [employer] Officer: Domenica Velázquez MD Eosinophils/100 WBC (Bld) 1 % Normal 1-4 [facility] Comment on above: Performed By: #### D BASIA, BMP, CDP, TROPI #### [address] [place] [address] Department Of Natural Resources Officer: Domenica Velázquez MD Erythrocyte distribution width (RBC) [Ratio] 13.5 % Normal 11.8-14.4 [facility] Comment on above: Performed By: #### D BASAI, BMP, CDP, TROPI #### [facility] [address] [place], [place] 8272183 [employer] Of Natural [employer] Officer: Domenica Velázquez MD Hematocrit (Bld) [Volume fraction] 42.6 % Normal 36.3-47.1 [facility] Comment on above: Performed By: #### D BASIA, BMP, CDP, TROPI #### [facility] [address] [place], [place] 9465983 [employer] Of Natural [employer] Officer: Domenica Velázquez MD Hemoglobin (Bld) [Mass/Vol] 14.1 g/dL Normal 11.9-15.1 [facility] Comment on above: Performed By: #### D BASIA, BMP, CDP, TROPI #### [address] [place], [place] 5688783 [employer] Of Natural [employer] Officer: Domenica Velázquez MD Immature granulocytes/100 WBC (Bld) 0 % Normal 0 [facility] Comment on above: Performed By: #### D BASIA, BMP, CDP, TROPI #### [address] [place], [place] 3574483 [employer] Of Natural [employer] Officer: Domenica Velázquez MD Lymphocytes (Bld) [#/Vol] 2.42 10*3/uL Normal 1.10-3.70 [facility] Comment on above: Performed By: #### D BASIA, BMP, CDP, TROPI #### [facility] [address] [place] [address] Dr[place], [place] [phone] [employer] Officer: Domenica Velázquez MD Lymphocytes/100 WBC (Bld) 30 % Normal 24-43 [facility] Comment on above: Performed By: #### D BASIA, BMP, CDP, TROPI #### [facility] [address] [place], [place] 3540383 [employer] Of Natural Resources Officer: Domenica Velázquez MD MCH (RBC) [Entitic mass] 28.8 pg Normal 25.2-33.5 [facility] Comment on above: Performed By: #### D BASIA, BMP, CDP, TROPI #### [facility] [address] [place], [place] 2862583 [employer] Of Natural [employer] Officer: Domenica Velázquez MD MCHC (RBC) [Mass/Vol] 33.1 g/dL Normal 28.4-34.8 [facility] Comment on above: Performed By: #### D BASIA, BMP, CDP, TROPI #### [facility] [address] [place] [address] [employer] Of Natural Resources Officer: oDmenica Velázquez MD MCV (RBC) [Entitic vol] 87.1 fL Normal 82.6-102.9 [facility] Comment on above: Performed By: #### D BASIA, BMP, CDP, TROPI #### [address] [place], [facility] [employer] Officer: Domenica Velázquez MD Monocytes (Bld) [#/Vol] 0.53 10*3/uL Normal 0.10-1.20 [facility] Comment on above: Performed By: #### D BASIA, BMP, CDP, TROPI #### [address] [place], [place] 0113083 [employer] Officer: Domenica Velázquez MD Monocytes/100 WBC (Bld) 7 % Normal 3-12 [facility] Comment on above: Performed By: #### D BASIA, BMP, CDP, TROPI #### [facility] [address] [place], [place] 0194483 [employer] Of Natural [employer] Officer: Domenica Velázquez MD Neutrophil (Seg) 62 % Normal 36-65 [facility] Comment on above: Performed By: #### D BASIA, BMP, CDP, TROPI #### [facility] [address] [place] [address] [employer] Of Natural Resources Officer: Domenica Velázquez MD NRBC Automated 0.0 per 100 WBC Normal 0.0 [facility] Comment on above: Performed By: #### D BASIA, BMP, CDP, TROPI #### [facility] [address] [place], [facility] [employer] Officer: Domenica Velázquez MD Platelet mean volume (Bld) [Entitic vol] 10.9 fL Normal 8.1-13.5 [facility] Comment on above: Performed By: #### D BASIA, BMP, CDP, TROPI #### [facility] [address] [place], [facility] [employer] Officer: Domenica Velázquez MD Platelets (Bld) [#/Vol] 296 10*3/uL Normal 138-453 [facility] Comment on above: Performed By: #### D BASIA, BMP, CDP, TROPI #### [address] [place], [facility] [employer] Officer: Domenica Velázquez MD RBC (Bld) [#/Vol] 4.89 10*6/uL Normal 3.95-5.11 [facility] Comment on above: Performed By: #### D BASIA, BMP, CDP, TROPI #### [address] [place] [address] [employer] Of Natural Resources Officer: Domenica Velázquez MD WBC (Bld) [#/Vol] 8.2 10*3/uL Normal 3.5-11.3 [facility] Comment on above: Performed By: #### D BASIA, BMP, CDP, TROPI #### [address] [place] [address] Department Of Natural Resources Officer: Domenica Velázquez MD CT CHEST PULMONARY EMBOLISM [...] Marcelino MD 10/05/23 Final result Normal [facility] D-Dimer Teston 10-05-2023 D-Dimer Test 0.30 ug/mL FEU Normal 0.00-0.59 [facility] Comment on above: Result Comment: [...] By: #### D BASIA, BMP, CDP, TROPI ####[address] [place] [address] Lab Director: Domenica Velázquez MD Liver Profileon 10-05-2023 Albumin [Mass/Vol] 4.4 g/dL Normal 3.5-5.2 [facility] Comment on above: Performed By: #### L IVP ####[address] , [place] 9398583 Lab Director: Domenica Velázquez MD Albumin/Glob Ratio 1.4 Normal 1.0-2.5 [facility] Comment on above: Performed By: #### L IVP ####[address] [place] [address] Lab Director: Domenica Velázquez MD Alkaline Phos 99 U/L Normal 35-104 [facility] Comment on above: Performed By: #### L IVP ####[address] [place] [address] Lab Director: Domenica Velázquez MD ALT [Catalytic activity/Vol] 13 U/L Normal 5-33 [facility] Comment on above: Performed By: #### L IVP ####[address] [place] [address] Lab Director: Domenica Velázquez MD AST [Catalytic activity/Vol] 16 U/L Normal <32 [facility] Comment on above: Performed By: #### L IVP ####[address] , [place] 8969783 Lab Director: Domenica Velázquez MD Bilirubin [Mass/Vol] 0.2 mg/dL Low 0.3-1.2 [facility] Comment on above: Performed By: #### L IVP ####[address] [place] [address] Lab Director: Domenica Velázquez MD Bilirubin, Indirect Can not be calculated Normal 0.0-1 .0 [facility] Comment on above: Performed By: #### L IVP ####[address] [place] [address] Lab Director: Domenica Velázquez MD Bilirubin.indirect [Mass/Vol] mg/dL Normal <0.3 [facility] Comment on above: Performed By: #### L IVP ####[address] [place] [address] Lab Director: Domenica Velázquez MD Protein [Mass/Vol] 7.5 g/dL Normal 6.4-8.3 [facility] Comment on above: Performed By: #### L IVP ####[address] [place] [address] Lab Director: Domenica Velázquez MD Troponinon 10-05-2023 Troponin, High Sens <6 Normal 0-14 [facility] Comment on above: Result Comment: High Sensitivity Troponin values cannot be compared with other Troponin methodologies. Performed By: #### T ROPI ####[address] , [place] [phone] Director: Domenica Velázquez MD Troponin, High Sens <6 Normal 0-14 [facility] Comment on above: Result Comment: High Sensitivity Troponin values cannot be compared with other Troponin methodologies. Performed By: #### D BASIA, BMP, CDP, TROPI #### [address] [place], [place] 2375183 [employer] Officer: Domenica Velázquez MD XR CHEST PORTABLEon 10-05-19 [...] Lock MD 10/05/23 Final result Normal [facility] CT CERVICAL SPINE WO CONTRAS Ton [...] Montoya MD 04/20/23 Final result Normal [facility] CT Cervical spine WO contras ton 04-20-2023 Radiology Study observation (narrative) [facility] CT HEAD WO CONTRASTon 2023 CT HEAD [...] Montoya MD 04/20/23 Final result Normal [facility] CT Head WO contraston 2023 Radiology Study observation (narrative) [facility] No Panel Informationon 04-[address] abnormal ity identified in the brain. No acute osseous abnormality identified in the cervical spine. [facility] RIS CONSOLIDATED EXAMINATION: CT OF THE CERVICAL [...] There is no prevertebral soft tissue swelling. [facility] Andi Ruvalcaba MD - 04/20/2023 EXAMINATION: CT OF THE [...] osseous abnormality identified in the cervical spine. [facility] No Panel InformationOrdered By: Andi Montoya on 04-20-2023 [facility] Work Phone: Glucose Glucometer (BldC) [M ass/Vol]on 03-27-2023 Glucose [Mass/Vol] 151 mg/dL High 65-99 [facility] Glucose Poct Glucometerson 0 03-18-2023 Commemt1 Glu2: Cleaned Meter Normal [facility] Comment on above: Result Comment: PERF ORMED BY: [place] [address] PATHOLOGIST [place] SHA VALERA M.D. Performed By: #### G LULS #### Point of Care testing , Glucose [Mass/Vol] 87 mg/dL Normal [facility] Comment on above: Result Comment: [place] Glucose Reference Range is dependent on time and content of last meal. Glucose of more than 200 mg/dL in a nonstressed, ambulatory subject supports the diagnosis of Diabetes Mellitus. Performed By: #### G LULS #### Point of Care testing , HCG,Urineon 03-18-2023 Beta HCG ( test) Ql (U) Negative Normal [facility] Comment on above: Result Comment: PERF ORMED BY: [place] [address] PATHOLOGIST [place] SHA VALERA M.D. Performed By: #### U HCG #### [address] CBC AND AUTO DIFFon 03-16-19 24 ABSOLUTE BASOPHIL 0.0 X10E9/L Normal 0.0-0.2 [facility] Comment on above: Performed By: #### C BCA, CMP, 91140-7, TSHR #### [facility] ([id number]) [address], [address] [place] [address] ABSOLUTE NEUTROPHIL 7.7 X10E9/L High 1.5-6.6 [facility] Comment on above: Performed By: #### Terrell BURGESS CMP, 54531-6, TSHR #### [facility] ([id number]) [address], [address] [place] [address] Basophils/100 WBC (Bld) 0.3 % Normal [facility] Comment on above: Performed By: #### Terrell BURGESS CMP, 20747-2, TSHR #### [facility] ([id number]) [address], [address] [place] [address] Eosinophils (Bld) [#/Vol] 0.1 10*3/uL Normal 0.0-0.4 [facility] Comment on above: Performed By: #### Terrell BURGESS CMP, 23067-0, TSHR #### [facility] ([id number]) [address], [address] [place] [address] Eosinophils/100 WBC (Bld) 1.1 % Normal [facility] Comment on above: Performed By: #### Terrell BURGESS CMP, 31618-7, TSHR #### [facility] ([id number]) [address], [address] [place] [address] Erythrocyte distribution width (RBC) [Ratio] 14.6 % Normal 11.5-15.0 [facility] Comment on above: Performed By: #### Terrell BURGESS CMP, 31551-0, TSHR #### [facility] ([id number]) [address], [address] [place] [address] Hematocrit (Bld) [Volume fraction] 45.7 % Normal 35-47 [facility] Comment on above: Performed By: #### Terrell BURGESS CMP, 47095-4, TSHR #### [facility] ([id number]) [address], [address] [place] [address] Hemoglobin (Bld) [Mass/Vol] 15.0 g/dL Normal 11.7-15.5 [facility] Comment on above: Performed By: #### C JAHAIRA BURGESS, 18514-6, TSHR #### [facility] ([id number]) [address], [address] [place] [address] Lymphocytes (Bld) [#/Vol] 2.4 10*3/uL Normal 1.0-3.5 [facility] Comment on above: Performed By: #### C ADITYA, CMP, 15222-9, TSHR #### [facility] ([id number]) [address], [facility] [address] [place] [address] Lymphocytes/100 WBC (Bld) 22.1 % Normal [facility] Comment on above: Performed By: #### Terrell BURGESS CMP, 61463-5, TSHR #### [facility] ([id number]) [address], [address] [place] [address] MCH (RBC) [Entitic mass] 29.0 pg Normal 27-34 [facility] Comment on above: Performed By: #### Terrell BURGESS CMP, 17142-8, TSHR #### [facility] ([id number]) [address], [address] [place] [address] MCHC (RBC) [Mass/Vol] 32.8 g/dL Normal 32-36 [facility] Comment on above: Performed By: #### Terrell BURGESS CMP, 27128-2, TSHR #### [facility] ([id number]) [address], [address] [place] [address] MCV (RBC) [Entitic vol] 88 fL Normal 80-100 [facility] Comment on above: Performed By: #### Terrell BURGESS, CMP, 16008-9, TSHR #### [facility] ([id number]) [address], [address] [place] [address] Monocytes (Bld) [#/Vol] 0.6 10*3/uL Normal 0-0.9 [facility] Comment on above: Performed By: #### C JAHAIRA BURGESS, 21296-7, TSHR #### [facility] ([id number]) [address], [address] [place] [address] Monocytes/100 WBC (Bld) 5.7 % Normal [facility] Comment on above: Performed By: #### Terrell BURGESS CMP, 67638-6, TSHR #### [facility] ([id number]) [address], [address] [place] [address] Neutrophils/100 WBC (Bld) 70.8 % Normal [facility] Comment on above: Performed By: #### Terrell BURGESS CMP, 31357-7, TSHR #### [facility] ([id number]) [address], [address] [place] [address] Platelet mean volume (Bld) [Entitic vol] 9.7 fL Normal 7-12 [facility] Comment on above: Performed By: #### Terrell BURGESS CMP, 31522-9, TSHR #### [facility] ([id number]) [address], [address] [place] [address] Platelets (Bld) [#/Vol] 303 10*3/uL Normal 150-450 [facility] Comment on above: Performed By: #### Terrell BURGESS CMP, 77127-1, TSHR #### [facility] ([id number]) [address], [address] [place] [address] RBC COUNT 5.17 X10E12/L Normal 3.80-5.20 [facility] Comment on above: Performed By: #### Terrell BURGESS CMP, 49940-0, TSHR #### [facility] ([id number]) [address], [address] [place] [address] WBC (Bld) [#/Vol] 10.9 10*3/uL Normal 4.0-11.0 [facility] Comment on above: Performed By: #### C BCA, CMP, 43273-7, TSHR #### [facility] ([id number]) [address], [address] [place] [address] COMPREHENSIVE METABOLIC PANE Dirk 03-16-2023 Albumin [Mass/Vol] 4.7 g/dL Normal 3.2-5.3 [facility] Comment on above: Performed By: #### C BCA, CMP, 85274-1, TSHR #### [facility] ([id number]) [address], [address] [place] [address] ALP [Catalytic activity/Vol] 74 U/L Normal 39-130 [facility] Comment on above: Performed By: #### C BCA, CMP, 47463-3, TSHR #### [facility] ([id number]) [address], [address] [place] [address] ALT [Catalytic activity/Vol] 22 U/L Normal 0-31 [facility] Comment on above: Performed By: #### C BCA, CMP, 52573-7, TSHR #### [facility] ([id number]) [address], [address] [place] [address] Anion gap [Moles/Vol] 12 mmol/L Normal 5-15 [facility] Comment on above: Performed By: #### C BCA, CMP, 32343-4, TSHR #### [facility] ([id number]) [address], [address] [place] [address] AST [Catalytic activity/Vol] 20 U/L Normal 0-41 [facility] Comment on above: Performed By: #### C BCA, CMP, 51413-3, TSHR #### [facility] ([id number]) [address], [address] [place] [address] Bilirubin [Mass/Vol] 0.5 mg/dL Normal 0.3-1.2 [facility] Comment on above: Performed By: #### C BCA, CMP, 84792-6, TSHR #### [facility] ([id number]) [address], [address] [place] [address] Calcium [Mass/Vol] 9.9 mg/dL Normal 8.5-10.5 [facility] Comment on above: Performed By: #### C BCA, CMP, 70900-5, TSHR #### [facility] ([id number]) [address], [address] [place] [address] Chloride [Moles/Vol] 105 mmol/L Normal 98-109 [facility] Comment on above: Performed By: #### C BCA, CMP, 04094-9, TSHR #### [facility] ([id number]) [address], [address] [place] [address] CO2 [Moles/Vol] 25 mmol/L Normal 22-32 [facility] Comment on above: Performed By: #### C BCA, CMP, 42948-8, TSHR #### [facility] ([id number]) [address], [address] [place] [address] Creatinine [Mass/Vol] 0.74 mg/dL Normal 0.40-1.00 [facility] Comment on above: Result Comment: METH OD TRACEABLE TO IDMS STANDARD Performed By: #### C BCA, CMP, 08315-4, TSHR #### [facility] ([id number]) [address], [address] [place] [address] eGFR (CKD-EPI) NON-RACE DEPENDENT >90 Normal >59 [facility] Comment on above: Result Comment: Reported eGFR is based on the CKD-EPI 2020 equation that does not use a race coefficient. Performed By: #### C BCA, CMP, 25373-9, TSHR #### [facility] ([id number]) [address], [address] [place] [address] Glucose [Mass/Vol] 143 mg/dL High 65-99 [facility] Comment on above: Performed By: #### C JAHAIRA BURGESS, 98473-9, TSHR #### [facility] [facility] ([id number]) [address], [address] [place] [address] Potassium [Moles/Vol] 3.8 mmol/L Normal 3.5-5.0 [facility] Comment on above: Performed By: #### C ADITYA CMP, 38185-4, TSHR #### [facility] ([id number]) [address], [address] [place] [address] Protein [Mass/Vol] 7.8 g/dL Normal 6.0-8.0 [facility] Comment on above: Performed By: #### C JAHAIRA BURGESS, 94243-7, TSHR #### [facility] ([id number]) [address], [address] [place] [address] Sodium [Moles/Vol] 142 mmol/L Normal 134-146 [facility] Comment on above: Performed By: #### C JAHAIRA BURGESS, 04618-8, TSHR #### [facility] ([id number]) [address], [address] [place] [address] Urea nitrogen [Mass/Vol] 17 mg/dL Normal 5-23 [facility] Comment on above: Performed By: #### C ADITYA CMP, 73409-1, TSHR #### [facility] ([id number]) [address], [address] [place] [address] HGB A1C (GLYCO-HGB)on 2023 Glucose [Mass/Vol] 117 mg/dL Normal [facility] Comment on above: Performed By: #### C ADITYA, CMP, 80927-8, TSHR #### [facility] ([id number]) [address], [address] [place] [address] HbA1c (Bld) [Mass fraction] 5.7 % High 4.4-5.6 [facility] Comment on above: Result Comment: NOTE ADA Guidelines Result HgbA1c Normal : less than 5.7 % Prediabetes : 5.7 % to 6.4 % Diabetes : > 6.4 % Use with caution in patients with abnormal hemoglobin variants as the half-life of red blood cells and in vivo glycation rates are affected. Performed By: #### Terrell BURGESS, CMP, 13175-4, TSHR #### [facility] ([id number]) [address], [address] [place] [address] Lipid 1996 panelon 4 Cholesterol [Mass/Vol] 132 mg/dL Low 150-200 [facility] Comment on above: Performed By: ###Christopher Tejada BCA, CMP, 81992-6, TSHR #### [facility] ([id number]) [address], [address] [place] [address] Cholesterol in HDL [Mass/Vol] 58 mg/dL Normal >39 [facility] Comment on above: Result Comment: HDL <40 mg/dL - High Risk HDL > or = 40mg/dL- Desirable HDL >60 mg/dL - Negative Risk Performed By: #### Terrell BURGESS, CMP, 25954-1, TSHR #### [facility] ([id number]) [address], [address] [place] [address] Cholesterol in LDL [Mass/Vol] 51 mg/dL Normal <130 [facility] Comment on above: Result Comment: LDL <100 mg/dL - Desirable LDL >160 mg/dL - High Risk Performed By: #### C BCA, CMP, 46027-9, TSHR #### [facility] ([id number]) [address], [address] [place] [address] Cholesterol in VLDL [Mass/Vol] 23 mg/dL Normal 0-30 [facility] Comment on above: Performed By: #### C BCA, CMP, 98201-8, TSHR #### [facility] ([id number]) [address], [address] [place] [address] CHOLESTEROL:HDL 2.3 Normal 1.0-5.0 [facility] Comment on above: Performed By: #### C BCA, CMP, 20755-5, TSHR #### [facility] ([id number]) [address], [address] [place] [address] Triglyceride [Mass/Vol] 114 mg/dL Normal 27-150 [facility] Comment on above: Performed By: #### C BCA, CMP, 94783-4, TSHR #### [facility] ([id number]) [address], [address] [place] [address] MAMM SCREENING 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-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 MAMM SCREENING BILATERAL W CAD MAMM [...] 3:25 PM 0A a ADDITIONAL I Normal [facility] TSH WITH REFLEXon 03-16-2023 TSH 0.55 uIU/mL Normal 0.49-4.67 [facility] Comment on above: Performed By: #### C BCA, CMP, 26305-8, TSHR #### [facility] ([id number]) [address], [address] [place] [address] PT - Assessmentson 3 PT - Assessments [id number]#1.00CD:12 7 Normal [facility] ST - Assessmentson 3 ST - Assessments [id number]#1.00CD:127 Normal [facility] Consenton 09-25-2022 Consent [id number]#1.00CD:127 [facility] Outside Recordson 2022 Outside Records [id number]#1.00CD:127 Normal [facility] ST - Orderson 2022 ST - Orders [id number]#1.00CD:127 Normal [facility] ST - Orders [id number]#1.00CD:127 Normal [facility] ST - Otheron 2022 ST - Other [id number]#1.00CD:127 Normal [facility] PAP ACOG PANEL 2: 30 to 65on 05-27-2022 . . Normal [facility] Comment on above: Result Comment: Perf ormed at: WB Performed By: #### 4 [id number] #### [facility] [address] [address] [address] Do Aguilar Age Gdln ACOG Testing 30-65 Normal [facility] Comment on above: Performed By: #### 4 [id number] #### [facility] [address] [address] [address] Do Aguilar DIAGNOSIS: Comment Normal [facility] Comment on above: Result Comment: NEGA TIVE FOR INTRAEPITHELIAL LESION OR MALIGNANCY. Performed at: WB Performed By: #### 4 [id number] #### [facility] [address] [place] [address] Dr. Do Aguilar HPV Aptima Negative Normal Negative [facility] Comment on above: Result Comment: This nucleic acid amplification test detects fourteen high-risk HPV types (16,18,31,33,35,39,45,51,52,56,58,59,66,68) without differentiation. Performed at: =G Performed By: #### 4 [id number] #### [facility] [address] [place] [address] Dr. Do Aguilar HPV Genotype Reflex Comment Normal [facility] Comment on above: Result Comment: Crit eria not met, HPV Genotype not performed. Performed at: WB Performed By: #### 4 [id number] #### [facility] [address] [place] [address] Dr. Do Aguilar Methodology: Comment Normal [facility] Comment on above: Result Comment: This liquid based ThinPrep(R) pap test was screened with the use of an image guided system. Performed at: WB Performed By: #### 4 [id number] #### [facility] [address] [place] [address] Dr. Do Aguilar Note: Comment Normal [facility] Comment on above: Result Comment: The Pap smear is a screening test designed to aid in the detection of premalignant and malignant conditions of the uterine cervix. It is not a diagnostic procedure and should not be used as the sole means of detecting cervical cancer. Both false-positive and false-negative reports do occur. . Performed at: WB Performed By: #### 4 [id number] #### [facility] [address] [address] [address] Do Aguilar Performed by: Comment Normal [facility] Comment on above: Result Comment: Melissa Ramachandran, No Experience (ASCP) Performed at: WB Performed By: #### 4 [id number] #### [facility] [address] [address] [address] Do Aguilar Specimen adequacy: Comment Normal [facility] Comment on above: Result Comment: Sati sfactory for evaluation. Endocervical and/or squamous metaplastic cells (endocervical component) are present. Performed at: WB Performed By: #### 4 [id number] #### [facility] [address] [place] [address] Dr. Do Aguilar HEPATITIS C AB CASCADE TO QU ANT PCR GENOon 02-18-2022 HCV AB <0.1 Normal 0.0-0.9 [facility] Comment on above: Performed By: #### H EPCASC #### [facility] [address] [place] [address] Dr. Do Aguilar Interpretation: Comment Normal [facility] Comment on above: Result Comment: Nega tive Not infected with HCV, unless recent infection is suspected or other evidence exists to indicate HCV infection. Performed By: #### H EPCASC #### [facility] [address] [place] [address] Dr. Do Aguilar LIVER PROFILEon 02-17-2022 Albumin [Mass/Vol] 3.6 g/dL Normal 3.4-5.0 [facility] Comment on above: Performed By: #### L IVER #### [facility] [address] [place] [address] Dr. Do Aguilar Albumin/Globulin [Mass ratio] 0.9 {ratio} Normal [facility] Comment on above: Performed By: #### L IVER #### [facility] [address] [place] [address] Dr. Do Aguilar ALP [Catalytic activity/Vol] 79 U/L Normal 46-116 [facility] Comment on above: Performed By: #### L IVER #### [facility] [address] [address] [address] Do Aguilar ALT [Catalytic activity/Vol] 51 U/L Normal 14-59 [facility] Comment on above: Performed By: #### L IVER #### [facility] [address] [address] [address] Do Aguilar AST [Catalytic activity/Vol] 33 U/L Normal 15-37 [facility] Comment on above: Performed By: #### L IVER #### [facility] [address] [address] [address] Do Aguilar BILI, CONJUGATED 0.1 mg/dL Normal 0.0-0.2 [facility] Comment on above: Performed By: #### L IVER #### [facility] [address] [place] [address] Dr. Do Aguilar Bilirubin [Mass/Vol] 0.3 mg/dL Normal 0.2-1.0 [facility] Comment on above: Performed By: #### L IVER #### [facility] [address] [place] [address] Dr. Do Aguilar Globulin (S) [Mass/Vol] 4.2 g/dL Normal [facility] Comment on above: Performed By: #### L IVER #### [facility] [address] [place] [address] Dr. Do Aguilar Protein [Mass/Vol] 7.8 g/dL Normal 6.4-8.2 [facility] Comment on above: Performed By: #### L IVER #### [facility] [address] [address] [address] Do Aguilar TSHon 02-17-2022 TSH 0.457 uIU/mL Normal 0.358-3.74 0 [facility] Comment on above: Performed By: #### T SH #### [facility] [address] [address] [address] Do Aguilar VITAMIN B12on 02-17-2022 Cobalamin (Vitamin B12) [Mass/Vol] 1864.0 pg/mL Critically high 193.0-986. 0 [facility] Comment on above: Performed By: #### V ITB12 #### [facility] [address] [address] [address] Do Aguilar History and Physicalon 12-04 History and Physical [id number]#1.00[facility] Operative Report - Surgeon/P godwin 12-04-2016 Operative Report - Surgeon/Physician [id number]#[address] Coding Summaryon 11-26-2016 Coding Summary CODING DATE: 017 [facility] STATUS: Home PAYOR: Medicaid HMO ADMIT DX: REASON FOR VISIT DX: R10.13 Epigastric pain R10.11 Right upper quadrant pain FINAL DX: PRINCIPAL: K29.70 Gastritis, unspecified, without bleeding SECONDARY: PROCEDURES DOCTOR NAME DATE 35187 EsophagogastroduodenTed mena Richard MD 11/21/2016 flexible, transoral; with biopsy, single or multiple NOTE: The code number assigned matches the documented diagnosis and / or procedure in the patient's chart. However, the narrative phrase printed from the coding software may appear abbreviated, or result in slightly different terminology. Coded By: Rosalba Laureano Date Saved: 11/26/2016 01:09 pm [facility] Consent Formson 11-24-2016 Consent Forms [id number]#[address] [place] [address] Intraoperative Noteon 2016 Intraoperative Note [id number]#[address] [place] [address] Intraoperative Note [id number]#[address] Operative Report - Surgeon/P godwin 11-24-2016 Operative Report - Surgeon/Physician DATE OF PROCEDURE: 11/21/2016PREOPERATIVE DIAGNOSIS: Epigastric pain/right upper quadrant pain.POSTOPERATIVE DIAGNOSIS: Moderate gastritis.PROCEDURE PERFORMED: EGD with biopsy x1 from the antrum of the stomach forH. pylori testing.SURGEON: Juan Ramon Jean M.D.ANESTHESIA: Conscious sedation with Versed 6 mg IV, Demerol 50 mg IV.FINDINGS: As above.DISPOSITION: To the holding area in fair condition.INDICATIONS: The patient is [...] in two weeks.Juan Ramon Jean M.D.JOB #: [id number]: 11/21/2016T: 11/21/2016[Electronically Signed on: 12/03/2016 07:09 EDT] Juan Ramon Jean MD Generated Domain User for [id number][Verified on: 12/03/2016 07:09 EDT] Juan Ramon Jean MD[Transcribed on: 11/21/2016 11:37 EDT]GDU Normal [facility] Telemetry Stripson 7 Telemetry Strips [id number]#1.00OTGTIFF [facility] Telemetry Strips [id number]#1.00OTGTIFF [facility] H. Pylori Gastricon 11-22-19 17 H. Pylori Rico Int Ctrl Pass [facility] Comment on above: Order Comment: H. (A NTRUM) Result Comment: Pass Performed By: #### 2 [id number] ####[facility] (DEFAULT)[address] [place] [address] H. Pylori Gastric Negative Normal Negative [facility] Comment on above: Order Comment: H. (A NTRUM) Result Comment: Nega tive Performed By: #### 2 [id number] ####[facility] (DEFAULT)[address] [place] [address] Inpatient Clinical Summaryon 11-21-2016 Inpatient Clinical Summary [facility] SURGERYClinical Discharge SummaryPERSON INFORMATIONName ROSE KARMA BANEGAS Age 36 Years 80Sex FEMALE Language Colombian PCP HAZEL, DAVIDMarital Status [facility] Ambulatory SurgeryMRN [id number] Acct# Arrival 11/21/16 07:22:21Visit Reason EGD - EPIGASTRIC ABDOMINAL PAIN Acuity LOS 013 23:19Address:[address] [address]Rxwktxr:PROVIDER INFORMATIONVITALS INFORMATIONVital Sign Triage LatestTemp OralTemp Temporal 36.4 DegC 36.4 DegCTemp IntravascularTemp AxillaryTemp [id number] Sat 100 % 97 %Respiratory Rate 16 [...] INFORMATIONInstructions:Fo llow up:With: Address: When:Juan Ramon Jean [address] [place] [address] [facility] (1) Within 2 to 4 weeksComments:Call for follow up appointmentWith: Address: When:DOMENICA OLIVA [address] [place] [phone] Business (1)DIAGNOSISAcute gastritisComment:PHYS DOC NOTES Normal [facility] Inpatient Patient Summaryon 11-21-2016 Inpatient Patient Summary [address] [address] Patient Discharge InstructionsName: KARMA SRDOB: [birth year] Address: [address] [place] [address] Care Provider:Name: DOMENICA OLIVAPhone: Discharge Diagnosis: Acute [...] or business decisions or sign any legal documentsChildren'S Hospital For Rehabilitation would like to thank you for allowing us to assist you with your healthcare needs. The following includes patient education materials and information regarding your injury/illness.KARMA SR has been given the following list of follow-up instructions, prescriptions, and patient education materials:Follow-up InstructionsWith: Address: When:Juan Ramon Jean [address] [place] [address] [facility] (1) Within 2 to 4 weeksComments:Call for follow up appointmentWith: Address: When:DOMENICA OLIVA [address] [place] [address] [phone] Business (1)MedicationsDuring the course of your visit, [...] the Answerwww.cdc.gov/getsmart GET SMART Know When Antibiotics [facility] of Health and Human ServicesUniversity Hospitals Geauga Medical Centerers for Disease Control and Prevention [facility]-21-2016 [facility] Endo Intraoperative Record [facility] Endo Intra-Op Record Summary Primary Physician: Juan Ramon Jean MD Finalized Date/Time: 11/21/16 08:37:38 Pt. Name: KARMA SR/Sex: 1980 FEMALE Med Rec #: [id number] Physician: Juan Ramon Jean MD Financial #: [id number] Pt. Type: D Room/Bed: / Admit/Disch: 11/21/16 [...] Jane RN Role Performed Surgeon - Primary Security And Compliance Project Manager Security And Compliance Project Manager Time In 11/21/16 08:06:00 11/21/16 08:06:00 [...] Unfinalizing Freetext Reason for Unfinalizing 11/21/16 08:37 DBARONE Modify Pick List Normal [facility] Endo Postoperative Benjamin rdon 11-21-2016 [facility] Postoperative Record [facility] Phase II Record Summary Primary Physician: Juan Ramon Jean MD Finalized Date/Time: 11/21/16 10:02:07 Pt. Name: KARMA SR /Sex: 1980 FEMALE Med Rec #: [id number] Physician: Juan Ramon Jean MD Financial #: [id number] Pt. Type: D Room/Bed: / Admit/Disch: 11/21/16 [...] Signed By: Cammy Barroso RN 11/21/16 10:02 [facility] MAGR Endo Preoperative Recor don 11-21-2016 [facility] Endo Preoperative Record [facility] Pre-Op Record Summary Primary Physician: Juan Ramon Jean MD Finalized Date/Time: 11/21/16 08:27:58 Pt. Name: KARMA SR Mary/Sex: 1980 FEMALE Med Rec #: [id number] Physician: Juan Ramon Jean MD Financial #: [id number] Pt. Type: D Room/Bed: / Admit/Disch: 11/21/16 [...] Signed By: Cammy Barroso RN 11/21/16 08:27 [facility] Test Urine 1on U Preg Negative [facility] Comment on above: Result Comment: Nega tive Performed By: #### 3 [id number] ####[facility] (DEFAULT)[address] [place] [address] U Preg Internal Control Pass [facility] Comment on above: Result Comment: Pass Performed By: #### 3 [id number] ####[facility] (DEFAULT)[address] [place] [address] Vital Signs Date Time Vital Sign Value Performing Clinician Facility 01-21-2024 09:35-0500 Body height 160.02 cm Rory Driver CLIENT SERVICES DIRECTOR-BC Work Phone: [facility] 01-21-2024 09:35-0500 Body mass index (BMI) [Ratio] 38.8 kg/m2 Rory Driver CLIENT SERVICES DIRECTOR-BC Work Phone: [facility] 01-21-2024 09:35-0500 Body weight 99.4 kg Rory Driver CLIENT SERVICES DIRECTOR-BC Work Phone: [facility] 01-13-2024 17:30-0500 Diastolic blood pressure 71 mm[Hg] Lisette Junior DO Work Phone: [facility] 01-13-2024 17:30-0500 Heart rate 95 /min Lisette Junior DO Work Phone: [facility] 01-13-2024 17:30-0500 SaO2% (BldA) [Mass fraction] 99 % Lisette Junior DO Work Phone: [facility] 01-13-2024 17:30-0500 Systolic blood pressure 131 mm[Hg] Lisette Junior DO Work Phone: [facility] 01-13-2024 15:30-0500 Respiratory rate 16 /min Lisette Junior DO Work Phone: [facility] 01-13-2024 14:24-0500 Body height 160 cm Lisette Junior DO Work Phone: [facility] 01-13-2024 14:24-0500 Body mass index (BMI) [Ratio] 37.55 kg/m2 Lisette Junior DO Work Phone: [facility] 01-13-2024 14:24-0500 Body temperature 98.1 [degF] Lisette Junior DO Work Phone: [facility] 01-13-2024 14:24-0500 Body weight 96.16 kg Lisette Junior DO Work Phone: [facility] 11-30-2023 11:10-0400 Body height 160 cm Brittany Spencerr 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 Work Phone: [facility] 11-30-2023 11:10-0400 Body mass index (BMI) [Ratio] 35.96 kg/m2 Brittany Gillmor 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 Work Phone: [facility] 11-30-2023 11:10-0400 Body weight 92.08 kg Brittany Gillmor 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 Work Phone: [facility] 11-30-2023 10:26-0400 Diastolic blood pressure 70 mm[Hg] Brittany Gottimor 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 Work Phone: [facility] 11-30-2023 10:26-0400 Heart rate 90 /min Brittany Spencerr 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 Work Phone: [facility] 11-30-2023 10:26-0400 SaO2% (BldA) [Mass fraction] 96 % Brittany Gottimor 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 Work Phone: [facility] 11-30-2023 10:26-0400 Systolic blood pressure 118 mm[Hg] Brittany Gottimor 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 Work Phone: [facility] 10-08-2023 09:17-0400 Body height 160 cm Dwayne Khoury MD Work Phone: [facility] 10-08-2023 09:17-0400 Body mass index (BMI) [Ratio] 36.36 kg/m2 Dwayne Khoury MD Work Phone: [facility] 10-08-2023 09:17-0400 Body weight 93.1 kg Dwayne Khoury MD Work Phone: [facility] 10-08-2023 09:17-0400 Diastolic blood pressure 86 mm[Hg] Dwayne Khoury MD Work Phone: [facility] 10-08-2023 09:17-0400 Heart rate 102 /min Dwayne Khoury MD Work Phone: [facility] 10-08-2023 09:17-0400 Respiratory rate 16 /min Dwayne Khoury MD Work Phone: [facility] 10-08-2023 09:17-0400 Systolic blood pressure 145 mm[Hg] Dwayne Khoury MD Work Phone: [facility] 06-02-2023 14:32-0400 Body mass index (BMI) [Ratio] 36.67 kg/m2 Deepika Robledo MD Work Phone: [facility] 06-02-2023 14:32-0400 Body weight 93.89 kg Deepika Robledo MD Work Phone: [facility] 06-02-2023 14:32-0400 Diastolic blood pressure 102 mm[Hg] Deepika Robledo MD Work Phone: [facility] 06-02-2023 14:32-0400 Heart rate 83 /min Deepika Robledo MD Work Phone: [facility] 06-02-2023 14:32-0400 Systolic blood pressure 136 mm[Hg] Deepika Robledo MD Work Phone: [facility] 05-21-2023 11:22-0400 Body height 160.02 cm [facility] 05-21-2023 11:22-0400 Body mass index (BMI) [Ratio] 36.5 kg/m2 [facility] 05-21-2023 11:22-0400 Body weight 93.44 kg [facility] 05-21-2023 10:39-0400 Body height 160.02 cm [facility] 05-21-2023 10:39-0400 Body mass index (BMI) [Ratio] 36.5 kg/m2 [facility] 05-21-2023 10:39-0400 Body weight 93.49 kg [facility] 05-21-2023 10:39-0400 Diastolic blood pressure 77 mm[Hg] [facility] 05-21-2023 10:39-0400 Heart rate 105 /min [facility] 05-21-2023 10:39-0400 Respiratory rate 18 /min [facility] 05-21-2023 10:39-0400 SaO2% (BldA) [Mass fraction] 95 % [facility] 05-21-2023 10:39-0400 Systolic blood pressure 114 mm[Hg] [facility] 04-28-2023 11:21-0500 Body height 160 cm Gaurav Sellers PA Work Phone: [facility] 04-28-2023 11:21-0500 Body mass index (BMI) [Ratio] 36.14 kg/m2 Gaurav Sellers PA Work Phone: [facility] 04-28-2023 11:21-0500 Body weight 92.53 kg Gaurav Sellers PA Work Phone: [facility] 04-28-2023 11:21-0500 Diastolic blood pressure 82 mm[Hg] Gaurav Sellers PA Work Phone: [facility] 04-28-2023 11:21-0500 Heart rate 87 /min Gaurav Mercerenberg PA Work Phone: [facility] 04-28-2023 11:21-0500 Respiratory rate 16 /min Gaurav Sellers PA Work Phone: [facility] 04-28-2023 11:21-0500 SaO2% (BldA) [Mass fraction] 97 % Gaurav Sellers PA Work Phone: [facility] 04-28-2023 11:21-0500 Systolic blood pressure 122 mm[Hg] Gaurav Sellers PA Work Phone: [facility] 04-20-2023 12:41-0500 Body mass index (BMI) [Ratio] 36.49 kg/m2 Shawna Rumlincolng DO Work Phone: [facility] 04-20-2023 12:41-0500 Body weight 93.44 kg Shawna Rumschlag DO Work Phone: [facility] [place] 04-20-2023 12:41-0500 Diastolic blood pressure 76 mm[Hg] Shawna Rumschlag DO Work Phone: [facility] 04-20-2023 12:41-0500 Heart rate 83 /min Shawna Rumschlag DO Work Phone: [facility] [place] 04-20-2023 12:41-0500 Respiratory rate 16 /min Shawna Rumschlag DO Work Phone: [facility] [place] 04-20-2023 12:41-0500 SaO2% (BldA) [Mass fraction] 98 % Shawna Rumschlag DO Work Phone: [facility] [place] 04-20-2023 12:41-0500 Systolic blood pressure 129 mm[Hg] Shawna Rumschlag DO Work Phone: [facility] [place] 04-20-2023 12:39-0500 Body temperature 97.3 [degF] Shawna Rumschlag DO Work Phone: [facility] 03-18-2023 11:30-0500 Diastolic blood pressure 84 mm[Hg] MD Yo Blank Work Phone: [facility] 03-18-2023 11:30-0500 Heart rate 95 /min MD Yo Blank Work Phone: [facility] 03-18-2023 11:30-0500 Respiratory rate 16 /min MD Yo Blank Work Phone: [facility] 03-18-2023 11:30-0500 SaO2% (BldA) [Mass fraction] 99 % MD Yo Blank Work Phone: [facility] 03-18-2023 11:30-0500 Systolic blood pressure 123 mm[Hg] MD Yo Blank Work Phone: [facility] 03-05-2023 09:15-0500 Body height 160.02 cm Gayathri Scally Other [employer] Other 03-05-2023 09:15-0500 Body mass index (BMI) [Ratio] 37.57 kg/m2 Gayathri Scally Other [employer] Other 03-05-2023 09:15-0500 Body weight 96.21 kg Gayathri Scally Other [employer] Other 03-05-2023 09:15-0500 Diastolic blood pressure 89 mm[Hg] Gayathri Scally Other [employer] Other 03-05-2023 09:15-0500 Respiratory rate 18 /min Gayathri Scally Other [employer] Other 03-05-2023 09:15-0500 SaO2% (BldA) [Mass fraction] 96 % Gayathri Scally Other [employer] Other 03-05-2023 09:15-0500 Systolic blood pressure 122 mm[Hg] Gayathri Scally Other [employer] Other 03-02-2023 19:24-0500 Body height 160 cm Sil Sullivan DO Work Phone: [employer] 03-02-2023 19:24-0500 Body mass index (BMI) [Ratio] 36.31 kg/m2 Sil Sullivan DO Work Phone: [employer] 03-02-2023 19:24-0500 Body temperature 98.29 [degF] Sil Sullivan DO Work Phone: [employer] 03-02-2023 19:24-0500 Body weight 92.99 kg Sil Sullivan DO Work Phone: [employer] 03-02-2023 19:24-0500 Diastolic blood pressure 98 mm[Hg] Sil Sullivan DO Work Phone: [employer] 03-02-2023 19:24-0500 Heart rate 82 /min Sil Sullivan DO Work Phone: [employer] 03-02-2023 19:24-0500 Respiratory rate 18 /min Sil Sullivan DO Work Phone: [employer] 03-02-2023 19:24-0500 SaO2% (BldA) [Mass fraction] 98 % Sil Sullivan DO Work Phone: [employer] 03-02-2023 19:24-0500 Systolic blood pressure 139 mm[Hg] Sil Sullivan DO Work Phone: [employer] 02-05-2023 09:20-0500 Body height 160.02 cm Jan Garg Other [employer] Other 02-05-2023 09:20-0500 Body mass index (BMI) [Ratio] 36.66 kg/m2 Jan Garg Other [employer] Other 02-05-2023 09:20-0500 Body weight 93.9 kg Jan Garg Other [employer] Other 01-15-2023 09:45-0500 Body height 160.02 cm Gayathri Angie Other [employer] Other 01-15-2023 09:45-0500 Body mass index (BMI) [Ratio] 36.68 kg/m2 Gayathri Scally Other [facility] Other 01-15-2023 09:45-0500 Body weight 93.94 kg Gayathri Scally Other [facility] Other 01-15-2023 09:45-0500 Diastolic blood pressure 83 mm[Hg] Gayathri Scally Other [facility] Other 01-15-2023 09:45-0500 Respiratory rate 18 /min Gayathri Scally Other [facility] Other 01-15-2023 09:45-0500 SaO2% (BldA) [Mass fraction] 99 % Gayathri Scally Other [facility] Other 01-15-2023 09:45-0500 Systolic blood pressure 119 mm[Hg] Gayathri Scally Other [facility] Other 01-07-2023 10:00-0500 Body height 160.02 cm Jan Garg Other [facility] Other 01-07-2023 10:00-0500 Body mass index (BMI) [Ratio] 36.13 kg/m2 Jan Garg Other [facility] Other 01-07-2023 10:00-0500 Body weight 92.53 kg Jan Britany Other [facility] Other 01-07-2023 10:00-0500 Diastolic blood pressure 74 mm[Hg] Jan Scovanjillian Other [facility] Other 01-07-2023 10:00-0500 Systolic blood pressure 118 mm[Hg] Jan Scovanjillian Other [facility] Other 08-28-2022 09:00-0400 Body height 160.02 cm Tamar Fitt Other [facility] Other 08-28-2022 09:00-0400 Body mass index (BMI) [Ratio] 35.8 kg/m2 Tamar Fitt Other [facility] Other 08-28-2022 09:00-0400 Body weight 91.67 kg Tamar Fitt Other [facility] Other 07-29-2022 10:15-0400 Body height 160.02 cm Gayathri Scally Other [facility] Other 07-29-2022 10:15-0400 Body mass index (BMI) [Ratio] 35.18 kg/m2 Gayathri Scally Other [facility] Other 07-29-2022 10:15-0400 Body weight 90.08 kg Gayathri Scally Other [facility] Other 07-29-2022 10:15-0400 Diastolic blood pressure 84 mm[Hg] Gayathri Scally Other [facility] Other 07-29-2022 10:15-0400 Respiratory rate 18 /min Gayathri Scally Other [facility] Other 07-29-2022 10:15-0400 SaO2% (BldA) [Mass fraction] 99 % Gayathri Scally Other [facility] Other 07-29-2022 10:15-0400 Systolic blood pressure 127 mm[Hg] Gayathri Scally Other [facility] Other 05-20-2022 11:15-0400 Body height 160.02 cm Gayathri Scally Other [facility] Other 05-20-2022 11:15-0400 Body mass index (BMI) [Ratio] 34.52 kg/m2 Gayathri Scally Other [facility] Other 05-20-2022 11:15-0400 Body weight 88.41 kg Gayathri Scally Other [facility] Other 05-20-2022 11:15-0400 Diastolic blood pressure 82 mm[Hg] Gayathri Scally Other [facility] Other 05-20-2022 11:15-0400 Respiratory rate 18 /min Gayathri Scally Other [facility] Other 05-20-2022 11:15-0400 SaO2% (BldA) [Mass fraction] 97 % Gayathri Scally Other [facility] Other 05-20-2022 11:15-0400 Systolic blood pressure 121 mm[Hg] Gayathri Scally Other [facility] Other 04-08-2022 11:15-0500 Body height 160.02 cm Gayathri Scally Other [facility] Other 04-08-2022 11:15-0500 Body mass index (BMI) [Ratio] 34.49 kg/m2 Gayathri Scally Other [facility] Other 04-08-2022 11:15-0500 Body weight 88.32 kg Gayathri Scally Other [facility] Other 04-08-2022 11:15-0500 Diastolic blood pressure 77 mm[Hg] Gayathri Scally Other [facility] Other 04-08-2022 11:15-0500 Respiratory rate 18 /min Gayathri Scally Other [facility] Other 04-08-2022 11:15-0500 SaO2% (BldA) [Mass fraction] 98 % Gayathri Scally Other [facility] Other 04-08-2022 11:15-0500 Systolic blood pressure 110 mm[Hg] Gayathri Scally Other [facility] Other 04-08-2022 10:15-0500 Body height 160.02 cm Tamar Fitt Other [facility] Other 04-08-2022 10:15-0500 Body mass index (BMI) [Ratio] 34.49 kg/m2 Tamar Fitt Other [facility] Other 04-08-2022 10:15-0500 Body weight 88.32 kg Tamar Fitt Other [facility] Other 02-26-2022 10:00-0500 Body height 160.02 cm Tamar Fitt Other [facility] Other 02-25-2022 11:45-0500 Body height 160.02 cm Gayathri Scally Other [facility] Other 02-25-2022 11:45-0500 Body mass index (BMI) [Ratio] 36.63 kg/m2 Gayathri Scally Other [facility] Other 02-25-2022 11:45-0500 Body weight 93.8 kg Gayathri Scally Other [facility] Other 02-25-2022 11:45-0500 Diastolic blood pressure 78 mm[Hg] Gayathri Scally Other [facility] Other 02-25-2022 11:45-0500 Respiratory rate 18 /min Gayathri Scally Other [facility] Other 02-25-2022 11:45-0500 SaO2% (BldA) [Mass fraction] 97 % Gayathri Scally Other [facility] Other 02-25-2022 11:45-0500 Systolic blood pressure 109 mm[Hg] Gayathri Scally Other [facility] Other 01-14-2022 11:45-0500 Body height 160.02 cm Gayathri Scally Other [facility] Other 01-14-2022 11:45-0500 Body mass index (BMI) [Ratio] 39.37 kg/m2 Gayathri Scally Other [facility] Other 01-14-2022 11:45-0500 Body weight 100.84 kg Gayathri Scally Other [facility] Other 01-14-2022 11:45-0500 Diastolic blood pressure 88 mm[Hg] Gayathri Scally Other [facility] Other 01-14-2022 11:45-0500 Respiratory rate 18 /min Gayathri Scally Other [facility] Other 01-14-2022 11:45-0500 SaO2% (BldA) [Mass fraction] 97 % Gayathri Scally Other [facility] Other 01-14-2022 11:45-0500 Systolic blood pressure 124 mm[Hg] Gayathri Scally Other [facility] Other 12-04-2021 12:00-0400 Body height 160.02 cm Gayathri Scally Other [facility] Other 12-04-2021 12:00-0400 Body mass index (BMI) [Ratio] 39.73 kg/m2 Gayathri Scally Other [facility] Other 12-04-2021 12:00-0400 Body weight 101.74 kg Gayathri Scally Other [facility] Other 12-04-2021 12:00-0400 Diastolic blood pressure 74 mm[Hg] Gayathri Scally Other [facility] Other 12-04-2021 12:00-0400 Respiratory rate 18 /min Gayathri Scally Other [facility] Other 12-04-2021 12:00-0400 SaO2% (BldA) [Mass fraction] 95 % Gayathri Scally Other [facility] Other 12-04-2021 12:00-0400 Systolic blood pressure 110 mm[Hg] Gayathri Adams Other [facility] Other 10-29-2021 11:30-0400 Body height 160.02 cm Yo Blank Other [facility] Other 10-29-2021 11:30-0400 Body mass index (BMI) [Ratio] 38.61 kg/m2 Yo Blank Other [facility] Other 10-29-2021 11:30-0400 Body weight 98.88 kg Yo Blank Other [facility] Other 10-29-2021 11:30-0400 Diastolic blood pressure 74 mm[Hg] Yo Blank Other [facility] Other 10-29-2021 11:30-0400 Systolic blood pressure 111 mm[Hg] Yo Blank Other [facility] Other 10-22-2021 13:26-0400 Body temperature 97.2 [degF] Shawna Rumschlag DO Work Phone: [employer] 10-22-2021 13:26-0400 Diastolic blood pressure 71 mm[Hg] Shawna Rumschlag DO Work Phone: [employer] 10-22-2021 13:26-0400 Heart rate 85 /min Shawna Rumschlag DO Work Phone: [employer] 10-22-2021 13:26-0400 Respiratory rate 16 /min Shawna Rumschlag DO Work Phone: [employer] 10-22-2021 13:26-0400 SaO2% (BldA) [Mass fraction] 94 % Shawna Rumschlag DO Work Phone: [employer] 10-22-2021 13:26-0400 Systolic blood pressure 131 mm[Hg] Shawna Rumschlag DO Work Phone: [facility] [employer] 10-11-2021 23:48-0400 Body height 160 cm Daniel Adkins MD Work Phone: [employer] 10-11-2021 23:48-0400 Body mass index (BMI) [Ratio] 36.67 kg/m2 Daniel Adkins MD Work Phone: [employer] 10-11-2021 23:48-0400 Body temperature 98.6 [degF] Daniel Adkins MD Work Phone: [employer] 10-11-2021 23:48-0400 Body weight 93.89 kg Daniel Adkins MD Work Phone: [employer] 10-11-2021 23:48-0400 Diastolic blood pressure 88 mm[Hg] Daniel Adkins MD Work Phone: [employer] 10-11-2021 23:48-0400 Heart rate 97 /min Daniel Adkins MD Work Phone: [employer] 10-11-2021 23:48-0400 Respiratory rate 16 /min Daniel Adkins MD Work Phone: [employer] 10-11-2021 23:48-0400 SaO2% (BldA) [Mass fraction] 96 % Daniel Adkins MD Work Phone: [employer] 10-11-2021 23:48-0400 Systolic blood pressure 134 mm[Hg] Daniel Adkisn MD Work Phone: [employer] Encounters Encounter Date Encounter Type Care Provider Facility Start: 03-09-2024 End: 03-09-2024 ambulatory Rory Driver [facility]- Work Phone: [facility] Work Phone: Start: 03-09-2024 End: 03-09-2024 Departed Referred Rory Driver [facility]- Work Phone: [facility] Start: 02-29-2024 End: 03-03-2024 Refill Luly English MD Work Phone: [facility] Comment on above: Chronic rhinitis Start: 02-16-2024 End: 02-17-2024 Telephone encounter Cleo Zambrano MD Work Phone: [facility] Comment on above: Medication Problem Start: 02-09-2024 End: 02-09-2024 Subsequent [facility] Start: 02-09-2024 ambulatory [facility] Start: 02-01-2024 End: 02-01-2024 ambulatory [facility] Start: 01-26-2024 End: 01-26-2024 ambulatory [facility] Start: 01-26-2024 End: 01-26-2024 Subsequent hospital visit by physician [facility] Comment on above: Arrived Start: 01-21-2024 End: 01-21-2024 Patient encounter procedure Rory Driver [facility]- Work Phone: [facility] Work Phone: Start: 01-13-2024 End: 01-13-2024 Emergency department patient visit Lisette Junior DO Work Phone: [facility] Comment on above: Dizziness (Primary D x) Start: 01-11-2024 End: 01-11-2024 ambulatory [facility] Start: 12-29-2023 End: 12-29-2023 Subsequent hospital visit by physician [facility] Start: 12-21-2023 End: 12-21-2023 ambulatory CARMEN FISHER [facility] Start: 12-15-2023 End: 12-15-2023 ambulatory [facility]OGDAN [facility] Start: 12-01-2023 End: 12-01-2023 ambulatory [facility] Start: 11-30-2023 End: 11-30-2023 Bamboo flowsheet Brittany Nevilel 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 Work Phone: [facility] Start: 11-30-2023 End: 11-30-2023 Bamboo flowsheet Brittany Neville 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 Work Phone: [facility] Start: 11-30-2023 End: 11-30-2023 Telephone encounter Brittany Neville 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 [facility] Start: 11-30-2023 End: 11-30-2023 ambulatory BRITTANY NEVILLE Not Available Start: 11-30-2023 End: 11-30-2023 Office outpatient visit 25 minutes Brittany Neville 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 [facility] Comment on above: JADON (obstructive sle ep apnea) (Primary Dx); Tension headache; Chronic bilateral low back pain, unspecified whether sciatica present; Paresthesias Start: 11-17-2023 End: 11-17-2023 ambulatory [facility] Start: 11-17-2023 End: 11-17-2023 Subsequent hospital visit by physician Tamar Silveira PT [facility] Physical Therapy Comment on above: Arrived Start: 11-16-2023 End: 11-16-2023 ambulatory Ugo Bourgeois MD Facility:[facility] Start: 10-20-2023 End: 10-20-2023 ambulatory [facility] Start: 10-20-2023 End: 10-20-2023 Subsequent hospital visit by physician Jan Olmstead PT [facility] Physical Therapy Comment on above: Arrived Start: 10-08-2023 End: 10-08-2023 Office outpatient new 30 minutes Dwayne Osito Sugg MD Work Phone: [facility] Comment on above: Macromastia (Primary Dx) Start: 10-08-2023 End: 10-08-2023 ambulatory DWAYNE KHOURY [facility] Start: 10-06-2023 End: 10-07-2023 Emergency department patient visit [facility] Start: 10-05-2023 End: 10-05-2023 Emergency department patient visit [facility] Start: 10-05-2023 End: 10-05-2023 Emergency department patient visit [facility] Start: 09-22-2023 End: 09-22-2023 Subsequent hospital visit by physician Jan Olmstead PT [facility] Physical Therapy Start: 09-15-2023 End: 09-15-2023 ambulatory [facility]AWNA RUMSCHLAG [facility] Start: 09-07-2023 End: 09-07-2023 ambulatory SHAWNA RUMSCHLAG [facility] Start: 09-01-2023 End: 09-01-2023 ambulatory SHAWNA RUMSCHLAG [facility] Start: 08-26-2023 End: 08-26-2023 ambulatory SHAWNA RUMSCHLAG [facility] Start: 08-26-2023 End: 08-26-2023 Subsequent hospital visit by physician Kofi Villegas PT [facility] Physical Therapy Comment on above: Arrived Start: 08-21-2023 End: 08-21-2023 ambulatory SHAWNA RUMSCHLAG [facility] Start: 08-21-2023 End: 08-21-2023 Subsequent hospital visit by physician Jan Olmstead PT [facility] Physical Therapy Comment on above: Arrived Start: 08-13-2023 End: 08-13-2023 ambulatory LAILA LIEBERMAN Not Available Start: 08-11-2023 End: 08-11-2023 ambulatory SHAWNA RUMSCHLAG [facility] Start: 08-11-2023 End: 08-11-2023 Subsequent hospital visit by physician Jan Olmstead PT [facility] Physical Therapy Comment on above: Arrived Start: 08-04-2023 End: 08-04-2023 ambulatory SHAWNA RUMSCHLAG [facility] Start: 07-29-2023 End: 07-29-2023 [facility] Start: 07-14-2023 End: 07-14-2023 Subsequent hospital visit by physician Rebecca Skinner PT [facility] Start: 07-07-2023 End: 07-07-2023 ambulatory SHAWNA RUMSCHLAG [facility] Start: 06-30-2023 End: 06-30-2023 ambulatory SHAWNA RUMSCHLAG [facility] Start: 06-17-2023 End: 06-17-2023 ambulatory SHAWNA RUMSCHLAG [facility] Start: 06-16-2023 End: 06-16-2023 ambulatory SHAWNA DARIOLAG [facility] Start: 06-04-2023 End: 06-04-2023 ambulatory [facility] Start: 06-03-2023 End: 06-03-2023 [facility] Start: 06-02-2023 End: 06-02-2023 Office outpatient new 30 minutes Deepika Robledo MD Work Phone: [facility] Comment on above: Mass of upper outer quadrant of right breast (Primary Dx); Abnormal mammogram; Symptomatic mammary hypertrophy Start: 06-02-2023 End: 06-02-2023 ambulatory DEEPIKA ROBLEDO [facility] Start: 06-02-2023 ambulatory SHAWNA [facility] Start: 05-25-2023 Patient encounter procedure Brittany Neville NP Work Phone: [facility] Start: 05-25-2023 End: 05-25-2023 ambulatory ROEL GARBER Not Available Start: 05-21-2023 End: 05-21-2023 Patient encounter procedure [facility] G[facility] Work Phone: Start: 05-21-2023 End: 05-21-2023 Patient encounter procedure [facility] Work Phone: Start: 05-20-2023 End: 05-20-2023 ambulatory SHAWNA RUMLINCOLNG [facility] Start: 05-19-2023 End: 05-19-2023 ambulatory SHAWNA EDWARG [facility] Start: 05-12-2023 Telephone encounter Deepika Robledo MD Work Phone: [facility] Start: 05-06-2023 End: 05-06-2023 ambulatory [facility]G [facility] Start: 05-06-2023 End: 05-06-2023 Subsequent hospital visit by physician Rojas Altamirano P[facility] Physical Therapy Comment on above: Arrived Start: 05-05-2023 End: 05-05-2023 [facility] Start: 04-30-2023 Refill Maty Fulton RN [facility] Start: 04-28-2023 End: 04-28-2023 ambulatory GAURAV SELLERS [facility] Start: 04-28-2023 End: 04-28-2023 Office outpatient visit 25 minutes Gaurav CALVO Work Phone: [facility] Comment on above: 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 (Primary Dx) Start: 04-21-2023 End: 04-21-2023 ambulatory [facility] Start: 04-20-2023 End: 04-20-2023 Emergency department patient visit [facility] ED Comment on above: Closed head injury, initial encounter (Primary Dx); Fall due to slipping on ice or snow, initial encounter; Acute cervical myofascial strain, initial encounter Start: 04-16-2023 ambulatory Rory T Shammo Facility :[facility] Start: 04-07-2023 End: 04-07-2023 [facility] Start: 03-31-2023 Refill Patricia Clay RN [facility] Start: 03-27-2023 End: 03-27-2023 ambulatory PETE SILVER [facility] Start: 03-24-2023 End: 03-24-2023 ambulatory SHAWNA Jin [facility] Start: 03-19-2023 End: 03-19-2023 ambulatory GABY JUNE Not Available Start: 03-18-2023 Telephone encounter Jan [facility] Start: 03-18-2023 End: 03-18-2023 ambulatory NON STAFF [facility] [employer] Other Start: 03-18-2023 Non-patient / Non-visit MD Yo Blank Work Phone: [facility] Work Phone: Start: 03-17-2023 End: 03-17-2023 ambulatory Jan Garg Other [employer] Other Start: 03-17-2023 Telephone encounter Jan Peterson [facility] Start: 03-16-2023 Encounter for genera l adult medical examination without abnormal findings [facility] Start: 03-16-2023 End: 03-16-2023 ambulatory RORY DRIVER [facility] Start: 03-16-2023 End: 03-16-2023 ambulatory LULY ENGLISH Not Available Start: 03-10-2023 End: 03-10-2023 ambulatory SHAWNA Browningy [facility] Start: 03-10-2023 End: 03-10-2023 Subsequent hospital visit by physician Tamar Silveira PT [facility] Comment on above: Arrived Start: 03-05-2023 (FCCCWMNF/U) Weight Management f/u Gayathri Adams [facility] Start: 03-05-2023 End: 03-05-2023 ambulatory Gayathri Adams Other [employer] Other Start: 03-05-2023 Registered Recurring MD Monserrat Blank Work Phone: [facility] Work Phone: Start: 03-02-2023 End: 03-02-2023 Emergency department patient visit Sil Lázaro Sullivan DO Work Phone: [facility] Comment on above: Constipation, unspec ified constipation type (Primary Dx) Start: 02-26-2023 End: 02-26-2023 ambulatory Jan Garg Other [employer] Other Start: 02-26-2023 Telephone encounter Jan Peterson [facility] Start: 02-20-2023 Telephone encounter Argenis Storm RN [facility] Comment on above: Medication, DME Start: 02-18-2023 End: 02-18-2023 ambulatory Jan Garg Other [employer] Other Start: 02-18-2023 Telephone encounter Jan Peterson [facility] Start: 02-10-2023 Telephone encounter Margaux Olea [facility] Start: 02-05-2023 End: 02-05-2023 ambulatory Jan Garg Other [employer] Other Start: 02-05-2023 Office outpatient visit 15 minutes Jan Garg [facility] Start: 01-15-2023 (FCCCWMNF/U) Weight Management f/u Gayathri Adams [facility] Start: 01-15-2023 End: 01-15-2023 ambulatory Gayathri Adams Other [employer] Other Start: 01-07-2023 End: 01-07-2023 ambulatory Jan Garg Other [employer] Other Start: 01-07-2023 Office outpatient visit 15 minutes Jan Garg [facility] Start: 09-25-2022 End: 01-16-2023 ambulatory ACCREDITED PHARMACY TECHNICIAN YUE GRANADO Facility:[facility] Start: 09-25-2022 End: 01-15-2023 Recurring YUE GRANADO [facility] Start: 09-17-2022 End: 09-17-2022 ambulatory Gayathri Adams Other [employer] Other Start: 09-17-2022 Telephone encounter Gayathri [facility] Start: 08-28-2022 ([facility] FU) [facility] F/ U [employer] Tamar Sosa [facility] Start: 08-28-2022 End: 08-28-2022 ambulatory Tamar Sosa Other [employer] Other Start: 07-29-2022 ([facility] Weight Management f/u Gayathri Angie [facility] Start: 07-29-2022 End: 07-29-2022 ambulatory Gayathri Angie Other [employer] Other Start: 05-20-2022 ([facility] Weight Management f/u Gayathrikasia Adams [facility] Start: 05-20-2022 End: 05-20-2022 ambulatory Gayathrimarino Adams Other [employer] Other Start: 05-19-2022 End: 05-19-[address] ROEL AGRBER . Facility:[facility] Start: 05-07-2022 End: 05-08-[address] DOCTOR ARREOLA Facility:[facility] Start: 04-09-2022 End: 04-09-2022 ambulatory Gayathrimarino Adams Other [employer] Other Start: 04-09-2022 Telephone encounter Gayathri Angie [facility] Start: 04-08-2022 ([facility] WMNI) WMN Initial Provider Tamar Sosa [facility] Start: 04-08-2022 ([facility] Weight Management f/u Gayathri Scally [facility] Start: 04-08-2022 End: 04-08-2022 ambulatory Tamar Fitt Other [employer] Other Start: 02-26-2022 End: 02-26-2022 ambulatory Tamar Fitt Other [employer] Other Start: 02-26-2022 IBT FOR OBESITY GROU P 2-10 30M Tamar Jackkhalif [facility] Start: 02-25-2022 [facility] Weight Management f/u Gayathri Brooklynly [facility] Start: 02-25-2022 End: 02-25-2022 ambulatory Gayathri Brooklynly Other [employer] Other Start: 02-17-2022 End: 02-18-2022 ambulatory RORY KOOPA Facility:H1 Start: 01-29-2022 End: 01-30-2022 ambulatory JOY Reis [facility] [place] 2[place] Facility:H1 Start: 01-14-2022 ([facility] Weight Management f/u Gayathri Brooklynly [facility] Start: 01-14-2022 End: 01-14-2022 ambulatory Gayathri Scally Other [facility] Other Start: 12-05-2021 End: 12-05-2021 ambulatory Gayathri Scally Other [employer] Other Start: 12-05-2021 Telephone encounter Gayathri [facility]ly [facility] Start: 12-04-2021 End: 12-04-2021 ambulatory Gayathri Scally Other [employer] Other Start: 12-04-2021 Nutrition therapy Gayathri Harrington [facility] Start: 10-29-2021 End: 10-29-2021 ambulatory Yo Blank Other [facility] [employer] Other Start: 10-29-2021 Patient encounter procedure Yo Blank [facility] Gastroenterology Start: 10-22-2021 End: 10-22-2021 Emergency department patient visit Shawna Mcfadden DO Work Phone: [facility] ED Comment on above: Acute diffuse otitis externa of left ear (Primary Dx) Start: 10-11-2021 End: 10-12-2021 Emergency department patient visit Daniel Adkins MD Work Phone: [facility] ED Comment on above: Pilonidal cyst (Prim romero Dx) Start: 11-21-2016 End: 11-26-2016 Ambulatory Juan Ramon Hiraúl Facility:[facility] Procedures Date Procedure Procedure Detail Performing Clinician Start: 01-13-2024 Urinalysis microscopic only Lisette J Junior DO Work Phone: Start: 01-13-2024 Urnls dip stick/tabl et rgnt auto w/o microscopy Lisette J Junior DO Work Phone: Start: 01-13-2024 Ecg routine ecg w/le ast 12 lds w/i&r Lisette J Junior DO Work Phone: Start: 01-13-2024 Comprehensive metabo lic panel Lisette J Junior DO Work Phone: Start: 05-25-2023 Microscopic observat ion [Identifier] in Cervix by Cyto stain Deepika Robledo MD Work Phone: Start: 04-20-2023 Ct cervical spine w/ o contrast material Precious Urbina FOOT MITER OPERATOR - ACCREDITED PHARMACY TECHNICIAN Work Phone: Start: 04-20-2023 Ct head/brain w/o co ntrast material Precious Urbina FOOT MITER OPERATOR - ACCREDITED PHARMACY TECHNICIAN Work Phone: Start: 03-16-2023 Mammography Brittany Jg yoo 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 Work Phone: Start: 05-02-2022 Microalbumin [Mass/v olume] in Urine by Test strip Patricia Clay RN Start: 05-02-2020 Adult depression scr eening assessment Argenis Storm RN Start: 08-30-2016 Cholecystectomy [facility] Start: 01-03-2013 nasal surgery YUE ALVARENGA RS Tonsillectomy YUE GRANADO Plan of Treatment Date Care Activity Detail Author Start: 05-20-2027 Screening for malignant neoplasm of cervix [facility] Start: 05-24-2026 Screening for malignant neoplasm of cervix Pap Smear [facility] Start: 03-16-2025 Screening for malignant neoplasm of breast Breast cancer screen [facility] Start: 11-10-2024 End: 11-10-2024 Patient encounter procedure 11/10/2024 11:30 AM EDT Office Visit [facility] [address] [place] [address] Karen Cotter, FOOT MITER OPERATOR - ACCREDITED PHARMACY TECHNICIAN [address] [place] [address] [address] [place] [address] 1 year [facility] Comment on above: 1 year [facility] Start: 10-07-2024 Adult BMI Screening Adult BMI Screen ing [facility] Start: 10-07-2024 Tobacco Screening Tobacco Screening [facility] Start: 06-01-2024 Adult BMI Screening Adult BMI Screen ing [facility] Start: 05-26-2024 End: 05-26-2024 Patient encounter procedure 05/26/2024 11:00 AM EDT Office Visit [facility] [address] [place] [phone] Roel Garber DO [address] [place] [address] [facility] Start: 04-28-2024 Adult BMI Screening Adult BMI Screen ing [facility] Start: 04-28-2024 Tobacco Screening Tobacco Screening [facility] Start: 03-24-2024 End: 03-24-2024 Patient encounter procedure 03/24/2024 3:00 PM EST Office Visit [facility] [address] [place] [address] Brittany Neville NP [address] [place] [place] [facility] Start: 03-17-2024 End: 03-17-2024 Patient encounter procedure 03/17/2024 9:20 AM EST [facility] [address] [place] [phone] Cleo Zambrano MD [address] [place] [address] [facility] Start: 03-16-2024 Adult BMI Screening Adult BMI Screen ing [facility] Start: 03-16-2024 Screening for malignant neoplasm of breast Mammogram [facility] Start: 03-11-2024 End: 03-11-2024 Patient encounter procedure 03/11/2024 10:00 AM EST Office Visit [facility] [address] [place] [phone] Mendez Ortiz, DO [address] [place] [address] [facility] Start: 03-09-2024 Group A Streptococcu s Culture Group A Streptococcus Culture [facility] Start: 02-19-2024 End: 02-19-2024 Patient encounter procedure 02/19/2024 2:00 PM EST Office Visit [facility] [address] [place] [phone] Mendez Ortiz, DO [address] [place] [address] [facility] Start: 02-16-2024 End: 02-16-2024 Patient encounter procedure 02/16/2024 3:40 PM EST Office Visit [facility] [address] [place] [phone] Brittany Neville, 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 [address] [place], [place] [facility] [address] Start: 02-09-2024 End: 02-09-2024 Patient encounter procedure 02/09/2024 11:15 AM EST Appointment [facility] Physical Therapy [address] [place], [place] [phone] Tamar Silveira, [place] dry needling [facility] Physical Therapy Comment on above: dry needling Start: 02-08-2024 End: 02-08-2024 Patient encounter procedure 02/08/2024 1:45 PM EST Appointment [facility] [address] [place] [phone] Chepe Ingram MD [address] [facility] [address] [place], [place] [phone] [facility] Start: 01-30-2024 Adult BMI Screening Adult BMI Screen ing [facility] Start: 01-30-2024 Tobacco Screening Tobacco Screening [facility] Start: 01-26-2024 End: 01-26-2024 Patient encounter procedure 01/26/2024 8:00 AM EST Appointment [facility] Physical Therapy [address] [place] [phone] Tamar Silveira, [place] dry needling [facility] Physical Therapy Comment on above: dry needling Start: 01-13-2024 End: 01-13-2024 Patient encounter procedure 01/13/2024 8:15 AM EST Office Visit [facility] UROLOGY Part of [address] [place] [phone] Georges [place], PA-C 27 [facility] [address] [place] [phone] incontinence [facility] UROLOGY Part of [facility] Comment on above: incontinence Start: 12-29-2023 End: 12-29-2023 Patient encounter procedure 12/29/2023 9:00 AM EDT Appointment [facility] Physical Therapy [address] [place], [place] [phone] Tamar Silveira, PT [place] [facility] Physical Therapy Comment on above: NEEDLING Start: 12-15-2023 End: 12-15-2023 Patient encounter procedure 12/15/2023 9:00 AM EDT Appointment [facility] Physical Therapy [address] [place], [place] [phone] Tamar Silveira, PT [place] [facility] Physical Therapy Comment on above: NEEDLING Start: 12-01-2023 End: 12-01-2023 Patient encounter procedure 12/01/2023 9:45 AM EDT Appointment [facility] Physical Therapy [address] [place], [place] [phone] Tamar Silveira, PT [place] [facility] Physical Therapy Comment on above: [place] Start: 11-01-2023 Influenza vaccination [facility] Start: 10-08-2023 End: 10-08-2023 Patient encounter procedure 10/08/2023 9:00 AM EDT Office Visit [facility] [address] [facility] [address] [place] [address] Dwayne Khoury MD [address], [facility] [address] [place] [address] [facility] Start: 10-01-2023 Influenza vaccination Flu vaccine (# 1) [facility] Start: 09-01-2023 End: 09-01-2023 Patient encounter procedure 09/01/2023 10:30 AM EDT Appointment [facility] Physical Therapy [address] [place], [place] [phone] Osito Rowan [facility] Physical Therapy Start: 08-26-2023 End: 08-26-2023 Patient encounter procedure 08/26/2023 2:30 PM EDT Appointment [facility] Physical Therapy [address] [place] [phone] Kofi Villegas, PT [facility] Physical Therapy Start: 08-18-2023 End: 08-18-2023 Patient encounter procedure 08/18/2023 9:45 AM EDT Appointment [facility] Physical Therapy [address] [place], [place] [phone] Osito Rowan [facility] Physical Therapy Start: 08-11-2023 End: 08-11-2023 Patient encounter procedure 08/11/2023 1:15 PM EDT Appointment [facility] Physical Therapy [address] [place], [place] [phone] Jan Olmstead, PT DRY [place] [facility] Physical Therapy Comment on above: DRY [place] Start: 08-04-2023 End: 08-04-2023 Patient encounter procedure 08/04/2023 4:15 PM EDT Appointment [facility] Physical Therapy [address] [place] [address] Osito Rowan [facility] Physical Therapy Start: 06-03-2023 End: 06-03-2023 Patient encounter procedure 06/03/2023 3:30 PM EDT Appointment [facility] Physical Therapy [address] [place] [phone] Osito Rowan [facility] Physical Therapy Start: 06-02-2023 End: 06-02-2023 Patient encounter procedure [facility] Physical Therapy Comment on above: DRY [place]- jd gibson coordinates with son's appt Start: 05-23-2023 Hepatitis B vaccine (3 of 3 - Hep B Twinrix 3-dose series) Hepatitis B vaccine (3 of 3 - Hep B Twinrix 3-dose series) [facility] Start: 05-20-2023 End: 05-20-2023 Patient encounter procedure 05/20/2023 3:15 PM EDT Appointment [facility] Physical Therapy [address] [place] [phone] Rojas Altamirano PTA [facility] Physical Therapy Start: 05-19-2023 End: 05-19-2023 Patient encounter procedure 05/19/2023 12:45 PM EDT Appointment [facility] Physical Therapy [address] [place] [phone] Rebecca Skinner, PT DRY NEEDLING- dont move coordinates with son's apptDRY [place]LING [facility] Physical Therapy Comment on above: DRY [place]- dont m ove coordinates with son's apptDRY [place] Start: 05-05-2023 End: 05-05-2023 Patient encounter procedure [facility] Physical Therapy Comment on above: DRY [place] DRY NEEDLING- dont m ove coordinates with son's appt Start: 05-03-2023 Urine screening for protein Urine Microalbumin [facility] Start: 04-28-2023 End: 04-28-2023 Patient encounter procedure 04/28/2023 10:45 AM EST Office Visit [facility] [address] [place] [phone] Gaurav Sellers PA [address] [place] [address] [facility] Start: 04-21-2023 End: 04-21-2023 Patient encounter procedure [facility] Physical Therapy Comment on above: DRY [place] DRY NEEDLING- dont m ove coordinates with son's appt Start: 04-07-2023 End: 04-07-2023 Patient encounter procedure 04/07/2023 2:15 PM EST Appointment [facility] Physical Therapy [address] [place] [address] Rebecca Skinner, [place] DRY NEEDLING [facility] Physical Therapy Comment on above: DRY [place] Start: 03-27-2023 End: 03-27-2023 Admission to same day surgery center 03/27/2023 1:27 PM EST - 03/27/2023 1:33 PM EST Surgery [facility] [address] [place] [phone] Pete Silver MD [address] [place], [place] [phone] INJECTION BLOCK SACROILIAC JOINT [12566 (CPT )] [facility] Comment on above: INJECTION BLOCK SACR OILIAC JOINT [50939 (CPT )] Start: 03-27-2023 End: 03-27-2023 Inject si joint arthrgrphy&/anes/stero id w/monika INJECTION BLOCK SACROILIAC JOINT Disorder of sacrum 03/27/2023 1:27 PM EST [facility] Start: 03-27-2023 Subsequent hospital visit by physician 03/27/2023 1:27 PM EST Hospital Encounter [facility] [address] [facility] [place] [phone] Pete Silver MD [address] [place] [address] [facility] Start: 03-24-2023 End: 03-24-2023 Patient encounter procedure 03/24/2023 2:15 PM EST Appointment [facility] Physical Therapy [address] [place], [place] [phone] Rebecca Skinner, PT DRY [place] [facility] Physical Therapy Comment on above: DRY [place] Start: 03-19-2023 [facility] Start: 03-16-2023 End: 03-16-2023 Patient encounter procedure 03/16/2023 11:45 AM EST Appointment [facility] DEXA [address] [place] [address] [facility] Start: 03-10-2023 End: 03-10-2023 Patient encounter procedure 03/10/2023 2:30 PM EST Appointment [facility] Physical Therapy [address] [place] [phone] Rebecca Skinner, PT [facility] Physical Therapy Start: 09-30-2022 Influenza vaccination Flu vaccine (# 1) [facility] Start: 10-31-2021 Influenza vaccination Flu vaccine (# 1) [facility] Start: 09-03-2021 DTaP,Tdap and Td Vaccines (1 - Tdap) DTaP,Tdap and Td Vaccines (1 - Tdap) [facility] Start: 09-03-2021 DTaP/Tdap/Td vaccine (1 - Tdap) DTaP/Tdap/Td vaccine (1 - Tdap) [facility] Start: 05-02-2021 Depression Screening Depression Scre [facility] Start: 2020 Lipid panel Lipids [facility] Start: 01-04-2020 Diabetic foot examination Diabetic Foot Exam [facility] Start: 09-25-2015 Diabetes screen Diabetes screen [facility] Start: 2010 Screening for malignant neoplasm of cervix [facility] Start: 2001 Screening for malignant neoplasm of cervix Pap smear [facility] Start: 09-25-1999 DTaP/Tdap/Td vaccine (1 - Tdap) DTaP/Tdap/Td vaccine (1 - Tdap) [facility] Start: 1998 Adult BMI Follow Up Plan Adult BMI Follow Up Plan [facility] Start: 1998 Hepatitis C screening Hepatitis C sc reen [facility] Start: 09-25-1995 HIV screening HIV screen [facility] Start: 1993 Varicella vaccine (1 of 2 - 13+ 2-dose series) Varicella vaccine (1 of 2 - 13+ 2-dose series) [facility] Start: 1992 Depression Screen Depression Screen [facility] Start: 1992 Depression Screening Depression Scre [facility] Start: 1990 Lipid panel Lipids [facility] Start: 1981 Varicella vaccine (1 of 2 - 2-dose childhood series) Varicella vaccine (1 of 2 - 2-dose childhood series) [facility] Start: 03-27-1981 COVID-19 Vaccine (#1) COVID-19 Vacci ne (#1) [facility] Start: 1980 Glaucoma screening Diabetic Op hthalmology Exam [facility] Start: 1980 Hepatitis B vaccine (1 of 3 - 3-dose series) Hepatitis B vaccine (1 of 3 - 3-dose series) [facility] EKG 12 Lead EKG 12 Lead ECG Routine 01/13/2024 2:59 PM EST [facility] Inject si joint arthrgrphy&/anes/stero id w/monika INJECTION BLOCK SACROILIAC JOINT Disorder of sacrum [facility] Njx dx/ther agt pvrt facet jt lmbr/sac 1 level INJECTION BLOCK NERVE MEDIAL BRANCH Lumbosacral spondylosis without myelopathy [facility] Streptococcus pyogen es [Presence] in Unspecified specimen by Organism specific culture [facility] Immunizations Immunization Date Immunization Notes Care Provider Fa cili 12-07-2023 influenza, seasonal, injectable, preservative free Luly English MD Work Phone: [facility] 05-25-2023 hepatitis A and hepatitis B vaccine Luly English MD Work Phone: [facility] 12-22-2022 hepatitis A and hepatitis B vaccine Luly English MD Work Phone: [facility] 12-22-2022 Seasonal, quadrivale nt, recombinant, injectable influenza vaccine, preservative free Luly English MD Work Phone: [facility] 12-22-2022 influenza virus vaccine, unspecified formulation Deepika Robledo MD Work Phone: [facility] 06-23-2022 hepatitis A and hepatitis B vaccine Luly English MD Work Phone: [facility] 02-07-2022 Pneumococcal Conjuga te PCV 20 Luly English MD Work Phone: [facility] 12-23-2021 influenza, injectabl e, quadrivalent, preservative free Luly Enlgish MD Work Phone: [facility] 09-02-2021 TD(adult) unspecifie d formulation Luly English MD Work Phone: [facility] 12-24-2020 influenza, injectabl e, quadrivalent, preservative free Luly English MD Work Phone: [facility] 12-19-2019 influenza, injectabl e, quadrivalent, preservative free Luly English MD Work Phone: [facility] 12-19-2018 influenza, injectabl e, quadrivalent, preservative free Argenis Storm RN [facility] 12-02-2017 influenza, injectabl e, quadrivalent, preservative free Argenis Storm RN [facility] 12-02-2017 pneumococcal conjuga te vaccine, 13 valent Argenis Storm RN [facility] 10-10-2016 influenza virus vaccine, unspecified formulation Argenis Storm RN [facility] 10-10-2016 influenza, seasonal, injectable, preservative free Luly English MD Work Phone: [facility] 12-19-2013 influenza virus vaccine, live, attenuated, for intranasal use Argenis Storm RN [facility] 12-03-2012 influenza virus vaccine, whole virus Argenis Storm RN [facility] 12-29-2011 influenza virus vaccine, whole virus Argenis Storm RN [facility] 12-23-2010 influenza virus vaccine, whole virus Argenis Storm RN [facility] 12-18-2008 influenza virus vaccine, whole virus Argenis Storm [facility] Payers Date Payer Category Payer Self-pay [id number] 2022 Unknown 2013 Medicaid (Managed Care) [facility] MEDICAID [id number] 2002 Medicaid [id number] 2002 Medicaid [facility] [id number] 1980 Unknown [id number] 2.16.840.1.897038.3.579.2. 593 1980 Unknown [id number] 2.16.840.1.166583.3.579.2. 593 1980 Unknown [id number] 2.16.840.1.587681.3.579.2. 593 1980 Unknown [id number] 2.16.840.1.040803.3.579.2. 593 1980 Unknown [id number] 2.16.840.1.413027.3.579.2. 727 1980 Unknown [id number] 2.16.840.1.698414.3.579.2. 1286 1980 Unknown [id number] 2.16.840.1.937770.3.579.2. 128 1980 Unknown [id number] 2.16.840.1.536175.3.579.2. 1286 1980 Unknown [id number] 2.16.840.1.815628.3.579.2. 1285 1980 Unknown [id number] 2.16.840.1.039093.3.579.2. 1259 1980 Unknown [id number] 2.16.840.1.167832.3.579.2. 1258 1980 Unknown [id number] 2.16840.1.478619.3.579.2. 1258 1980 Unknown [id number] 2.840.1.394909.3.579.2. 1258 1980 Unknown [id number] 2.16840.1.026132.3.579.2. 1258 1980 Unknown [id number] 2.840.1.263949.3.579.2. 1285 1980 Unknown [id number] 2.840.1.543669.3.579.2. 1285 1980 Unknown [id number] 2.840.1.290890.3.579.2. 1285 1980 Unknown [id number] 2.0.1.353873.3.579.2. 1285 1980 Unknown [id number] 2.0.1.623267.3.579.2. 1285 1980 Unknown [id number] 2.840.1.577421.3.579.2. 1285 1980 Unknown [id number] 2.0.1.235584.3.579.2. 1285 1980 Unknown [id number] 20.1.980942.3.579.2. 1980 Unknown [id number] 840.1.710683.3.579.2. 1980 Unknown [id number] 840.1.792378.3.579.2. 1980 Unknown [id number] 2.840.1.038200.3.579.2. 1980 Unknown [id number] 2.840.1.351927.3.579.2. 1980 Unknown [id number] 2840.1.190126.3.579.2. 1980 Unknown [id number] 2.840.1.151656.3.579.2. 1980 Unknown [id number] 2.840.1.835690.3.579.2. 1980 Unknown [id number] 2.840.1.966920.3.579.2. 1980 Unknown [id number] 2.840.1.562853.3.579.2. 1980 Unknown [id number] 2.840.1.299087.3.579.2. 1980 Unknown [id number] 2.840.1.441364.3.579.2. 1980 Unknown [id number] 2.840.1.197916.3.579.2. 1980 Unknown [id number] 20.1.629516.3.579.2. 1980 Unknown [id number] 2.840.1.779393.3.579.2. 1980 Unknown [id number] 20.1.906934.3.579.2. 1980 Unknown [id number] 2.0.1.316129.3.579.2. 1980 Unknown [id number] 840.1.069685.3.579.2. 1980 Unknown [id number] .840.1.903877.3.579.2. 1980 Unknown [id number] 2.840.1.960224.3.579.2. 1980 Unknown [id number] 2.840.1.496088.3.579.2. 1980 Unknown [id number] 2.840.1.809939.3.579.2. 1980 Unknown [id number] 2.16.840.1.024999.3.579.2. 173 1980 Unknown [id number] 2.16.840.1.535262.3.579.2. 1980 Unknown [id number] 2.16.840.1.707236.3.579.2. 1980 Unknown [id number] 2.16.840.1.459846.3.579.2. 1980 Unknown [id number] 2.16.840.1.862619.3.579.2. 1980 Unknown [id number] 2.16.840.1.756296.3.579.2. 1980 Unknown [id number] 2.16.840.1.632611.3.579.2. 1980 Unknown [id number] 2.16840.1.596126.3.579.2. 1980 Unknown [id number] 2.16.840.1.264003.3.579.2. 1980 Unknown [id number] 2.16840.1.028692.3.579.2. 1980 Unknown [id number] 2.16.840.1.423937.3.579.2. 1980 Unknown [id number] 2.16840.1.756542.3.579.2. 1980 Unknown [id number] 2.16.840.1.818623.3.579.2. 1980 Unknown [id number] 2.16.840.1.289169.3.579.2. 1980 Unknown [id number] 2.16.840.1.116954.3.579.2. 1980 Unknown [id number] 2.16.840.1.130619.3.579.2. 173 1959 Medicaid [id number] Unknown [id number] 2.16.840.1.099042.3.579.2. 531 Unknown [id number] 2.16.840.1.792327.3.579.2. 531 Unknown [id number] 2.16.840.1.704808.3.579.2. 531 Social History Date Type Detail Facility Start: 09-02-2017 End: 05-21-2023 Tobacco smoking status NHIS Never smoked tobacco [employer] Start: 09-02-2017 End: 03-10-2023 Tobacco use and exposure Smokeless tobacco non-user [facility]: Start: 10-11-2021 End: 01-13-2024 Alcohol intake Current non-drinker of alcohol (finding) [facility]: Start: 1980 Sex Assigned At Not on file B ON [employer] Phone: Start: 10-01-2021 End: 10-22-2021 Exposure to SARS-CoV-2 (event) Not sure [facility]: Start: 10-11-2021 End: 11-30-2023 Sex Assigned At [facility] Tobacco smoking status Never [facility] Start: 10-11-2021 End: 11-30-2023 History of Social function [facility] Start: 1980 Sex Assigned At Female F [facility] How often to you hav e a drink containing alcohol? Never [employer] Start: 10-05-2014 Sex Female (finding) [facility] Start: 02-11-2024 End: 02-18-2024 Alcoholic beverage intake Lifetime non-drinker (finding) [facility] Start: 03-11-2024 Sex Patient sex un known (finding) [facility] Medical Equipment Procedure Code Equipment Code Equipment Origin al Text Equipment Identifier Dates [place] Sut 5.5mm 2 Ft Crkscr Fbrwr Shldr 3 Pk 14.7mm Strl Ea=Bill-Only Rpl [id number] - [id number] Start: 05-15-2022 Use to test BLOO D SUGAR TWICE DAILY [id number] Start: 05-28-2020 Use to test BLOO D SUGAR TWICE DAILY, Diagnosis: E11.9 [id number] Start: 03-08-2020 Clinical Notes 10-22-2021 to 02-16-2024 Telephone Encounter - Austin Gregorio - 02/16/2024 10:05 AM ESTTelephone Encounter - Austin Gregorio - 02/16/2024 10:05 AM Jan Hilliard, PT - 02/09/2024 11:15 AM ESTDischarge Instructions Note Date & Type Note Facility 02-16-2024 Telephone encounter Note Pt would like ot know if you can try to get the ozempic approved again. She's gained 20lbs on trulicity. [facility] 02-16-2024 Miscellaneous Notes Pt would like ot know if you can try to get the ozempic approved again. She's gained 20lbs on trulicity. documented in this encounter [facility] 02-09-2024 History of Presen t illness Narrative [facility] Inpatient/Observation/Outpatien t Rehabilitation Date: 02/09/2024 Patient Name: Karma Candelaria [x] Inpatient Acute/Observation [] Outpatient : 1980 02/16/24 Plan of Care/Recert ends [x] Pt no showed for scheduled appointment Patient was called and reported she is not feeling well. She reports she has upcoming cardiac testing. She reports she will call to reschedule when she's feeling better. Jan Olmstead, PT, DPT, OCS, Cert. DN Date: 02/09/2024 documented in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 MD at [facility] NASAL SURGERY REPAIR HERNIA UMBILICAL 09/16/2016 Performed by Juan Ramon Jean MD at [facility] TONSILLECTOMY Allergies Allergen Reactions Metformin Severe hypoglycemia [...] for and in the presence of UMESH HOGDE by Peg Conrad CNA. Provider Statement: I, UMESH HODGE, personally performed the services described in the documentation, as scribed by Peg Conrad CNA in my presence, and it is both accurate and complete. Peg Conrad CNA 04/28/23 1207 UMESH Hodge 04/30/23 1141 documented in this encounter [facility] 04-28-2023 Instructions Peg Conrad CNA - 04/28/2023 [...] nearest emergency room. documented in this encounter [facility] 04-20-2023 Hospital Discharg e instructions Precious Urbina APRN - CNP - 04/20/2023 1:50 PM EST Increase fluid Tylenol Motrin for cough Continue home medications The following attachments cannot be sent through Care Everywhere.Head Injury: Closed: General Info (Colombian)Cervical Strain (Colombian)documented in this encounter [facility] 03-31-2023 Miscellaneous Notes Patient calls [...] medications prescribed to someone other than her. [employer] reiterated this to patient. Patient's pharmacy was confirmed with her. Order pended for review and signature. documented in this encounter [facility] 03-31-2023 Telephone encounter Note Patient calls today and states she has discussed obtaining Tramadol prescription with both F[facility]. She states her mother was prescribed Cymbalta [...] are prescribed to someone other than her. [employer] 03-31-2023 Telephone encounter Note Is she still taking prozac? What dosage? Any other antidepressants? [employer] 03-31-2023 Telephone encounter Note Call placed to patient to confirm whether or not she is taking Prozac or other antidepressants. Patient states she is taking 40 mg Prozac daily. That is the only antidepressant that she takes. She is prescribed Latuda and Lamictal to treat Bipolar. [employer] 03-31-2023 Telephone encounter Note Can try cymbalta 30mg once daily [employer] 03-31-2023 Telephone encounter Note Call placed to patient to inform her of provider's response. Patient is also educated not to take medications that are prescribed to someone other than her. Patient voices that she is aware that she should not be taking medications prescribed to someone other than her. [employer] reiterated this to patient. Patient's pharmacy was confirmed with her. Order pended for review and signature. [employer] 03-05-2023 Evaluation note Encounter Date Diagnosis Assessment [...] was counseling done by myself, Rhina ROBERTSON. [employer] Other 01-01-2024 Hospital Discharge instructions* Discharge Instructions* Sil Sullivan DO - 03/02/2023 7:49 PM EST Please follow-up with your GI doctor, trial enema at home, return to the ER for worsening abdominalpain, inability to pass gas, or nausea, vomiting * Attachments The following attachments cannot be sent through Care Everywhere. * Constipation (Colombian) [facility] Miscellaneous Notes* Telephone Encounter - Argenis Storm [...] when she was under his care in [place]. She is currently taking Meloxicam that helps [...] states whatever . [facility] encounter Note* Telephone Encounter - [...] when she was under his care in [place]. She is currently taking Meloxicam that helps [...] was explained to patient several times that Fratun oversee her treatment plan and Dr. Silver [...] add Dr. Silver on the note. PVU. [employer]12-22-2023 Telephone encounter Note* Telephone Encounter - Pete Silver MD - 02/20/2023 10:04 AM EST Discussed with nurse, I agree with Fartun's treatment plan going forward. [employer]12-22-2023 Telephone encounter Note* Telephone Encounter - UMESH Hodge - 02/20/2023 10:04 AM EST No Rx for tramadol. I have never written prescription for bra so I would not know how to proceed with anything like that. [employer]12-22-2023 Telephone encounter Note* Telephone Encounter - Argenis Storm RN - 02/20/2023 10:04 AM EST Patient aware of response. She states whatever . [facility] [employer]12-20-2023 Evaluation note* Encounter Date Diagnosis Assessment Notes Treatment Notes Treatment Clinical Notes Jan, Constipation, unspecified constipation type (ICD-10 - K59.00) Jan, Constipation (ICD-10 - K59.00) [facility] 12-12-2023 Miscellaneous Notes* Telephone Encounter - [...] has f/u appt [facility] Note* Telephone Encounter - [...] is now related to sacroiliac joint. [facility]12-12-2023 Telephone encounter Note* Telephone Encounter - [...] reason to deny the current request. [facility]12-12-2023 Telephone encounter Note* Telephone Encounter - Alfredito William - 02/10/2023 8:18 AM EST GOT APPROVAL [facility] [employer] [id number] Telephone encounter Note* Telephone Encounter - Maty Fulton RN - 02/10/2023 8:18 AM EST Pt is scheduled 03/27 for procedure and has f/u appt [facility] [employer] [id number] Evaluation note* Encounter Date Diagnosis Assessment Notes [...] R10.9) Jan, Rectal bleed (ICD-10 - K62.5) [facility] Other 11-16-2023 Evaluation note* Encounter Date Diagnosis [...] visit was counseling done by myself, Rhina Scally CLIENT SERVICES DIRECTOR-C. [employer] Other 11-08-2023 Evaluation note* Encounter Date Diagnosis [...] HAVE PATIENT START DOCUSATE 3 CAPSULES DAILY. [employer] Other 06-29-2023 Evaluation note* Encounter Date Diagnosis Assessment Notes Treatment Notes Treatment Clinical Notes Jul, Obesity (ICD-10 - E66.9) Jul, BMI 34.0-34.9,adult (ICD-10 - Z68.34) Jul, Other Summary of Visi t: (A) discussed continuing to work on small goals until stress decreases and she has the energy to increase goals (B) discussed healhtier choices at [employer]- food blog reviewed (C) reviewed food storage tips for keeping produce fresh longer Patient set the following goals: - NEW: continue to choose sugar free beverages- not reviewed [facility] Other 05-30-2023 Evaluation note* Encounter Date Diagnosis [...] was counseling done by myself, Rhina ROBERTSON. [employer] [facility] 03-21-2023 Evaluation note* Encounter Date Diagnosis [...] was counseling done by myself, Rhina ROBERTSON. [employer] Other 02-07-2023 Evaluation note* Encounter Date Diagnosis [...] set the following goals: not reviewed today [employer] Other 02-07-2023 Evaluation note* Encounter Date Diagnosis [...] was counseling done by myself, Rhina ROBERTSON. [employer] Other 12-28-2022 Evaluation note* Encounter Date Diagnosis [...] patient set personal goal using given handout. [employer] Other 12-27-2022 Evaluation note* Encounter Date Diagnosis [...] was counseling done by myself, Rhina ROBERTSON. [employer] Other 12-01-2022 NotePROCEDURE: XR ANKLE LT MIN [...] by: ONEL CLARK Date: 2022-01-29 22:30[facility]12-01-2022 NotePROCEDURE: XR ANKLE LT MIN 3 V, [...] by: ONEL CLARK Date: 2022-01-29 22:30[facility]11-15-2022 Evaluation note* Encounter Date Diagnosis Assessment Notes [...] was counseling done by myself, Rhina ROBERTSON. [facility] Other 10-05-2022 Evaluation note* Encounter Date Diagnosis [...] was counseling done by myself, Rhina ROBERTSON. [facility] Other 08-30-2022 Evaluation note* Encounter Date Diagnosis Assessment Notes Treatment Notes Treatment Clinical Notes Sep, Fatty liver (ICD-10 - K76.0) ENCOURAGED WEIGHT LOSS Sep, Obesity (BMI 30-39.9) (ICD-10 - E66.9) [facility] Other 08-23-2022 Hospital Discharge instructions* Discharge Instructions* Stanley Almonte PA-C - 10/22/2021 2:03 PM EDT Follow-up with primary care doctor 7 to 10 days for reevaluation. Take Motrin 800 mg as directed with food. Start eardrops left ear as directed. Promptly return to emergency department for new, changing or worsening of symptoms or other concerns. [facility] [employer] Work Phone: evaluation + Plan note No data available for this section [facility] Diagnosis Pilonidal cyst- Primary Pilonidal cyst without mention of abscess documented in this encounter [facility] [employer] Work Phone: [email or web address] note* Diagnosis Acute diffuse otitis externa of left ear- Primary documented in this encounter [facility] [employer] Work Phone: evalzirliz noteNo [employer] Other evaluation note* Diagnosis Constipation, unspecified constipation type- Primary documented in this encounter [facility] [employer] noteNo assessment information available [facility] Work Phone: evaluation note* Diagnosis Closed head injury, initial encounter- Primary Fall due to slipping on ice or snow, initial encounter Acute cervical myofascial strain, initial encounter documented in this encounter [facility] [employer] note* Diagnosis Lumbosacral spondylosis without myelopathy- Primary documented in this encounter [facility] note* Diagnosis Mass of upper outer quadrant of right breast- Primary Abnormal mammogram Abnormal mammogram, unspecified Symptomatic mammary hypertrophy documented in this encounter [facility]* Diagnosis Onset Date Resolution Status ADHD acute BMI 36.0-36.9,adult acute Constipation acute Diabetes mellitus with hyperglycemia acute Fatty liver acute IBS (irritable bowel syndrome) acute Obesity acute Shifting sleep-work schedule, affecting sleep acute Constipation acute Elevated liver function tests acute Fatty liver acute IBS (irritable bowel syndrome) acute [facility] Work Phone: evalucrrjo note* Diagnosis Dizziness- Primary Dizziness and giddiness documented in this encounter [facility] [employer] note* Diagnosis Macromastia- Primary Hypertrophy of breast documented in this encounter [facility] note* Diagnosis JADON (obstructive sleep apnea)- Primary Obstructive sleep apnea (adult) (pediatric) Tension headache Chronic bilateral low back pain, unspecified whether sciatica present Paresthesias Disturbance of skin sensation [facility] Diagnosis JADON (obstructive sleep apnea)- Primary Obstructive sleep apnea (adult) (pediatric) [facility]* Diagnosis Chronic rhinitis [facility] Narrative - Reported* Type Description Date Medical History PTSD Medical History DIVERTICULITOUS Surgical History 2 BACK INJECTIONS 2015 Surgical History LEFT ANKLE 2002 Surgical History CHOLECYSTECTOMY Hospitalization History SEE ABOVE [facility] Other [employer] general Narrative - Reported* Type Description Date Medical History PTSD Medical History DIVERTICULITOUS Medical History bipolar Medical History ADHD Surgical History 2 BACK INJECTIONS 2014 Surgical History LEFT ANKLE 2002 Surgical History CHOLECYSTECTOMY Surgical History nasal surgery Hospitalization History SEE ABOVE [facility] Other [employer] general Narrative - Reported* Type Description Date Medical History PTSD Medical History DIVERTICULITOUS Medical History bipolar Medical History ADHD Surgical History 2 BACK INJECTIONS 2014 Surgical History LEFT ANKLE 2001 Surgical History CHOLECYSTECTOMY Surgical History nasal surgery Surgical History right Rotator surgery 05-15-22 Hospitalization History SEE ABOVE [facility] Other [facility] general Narrative - Reported* Type Description Date Medical History PTSD Medical History DIVERTICULITOUS Medical History bipolar Medical History ADHD Medical History rotator cuff tear Surgical History 2 BACK INJECTIONS 2014 Surgical History LEFT ANKLE 2002 Surgical History CHOLECYSTECTOMY Surgical History nasal surgery Surgical History right Rotator surgery 05-15-22 Hospitalization History SEE ABOVE [facility] Other [employer] general Narrative - Reported* Type Description Date Medical History PTSD Medical History DIVERTICULITOUS Medical History bipolar Medical History ADHD Medical History rotator cuff tear Surgical History 2 BACK INJECTIONS 2014 Surgical History LEFT ANKLE 2001 Surgical History CHOLECYSTECTOMY Surgical History nasal surgery Surgical History right Rotator surgery 05-15-22 Surgical History Neck injections/root burnt 12/31 Hospitalization History SEE ABOVE [facility] Other [facility] general Narrative - Reported* Type Description Date Medical History PTSD Medical History DIVERTICULITOUS Medical History bipolar Medical History ADHD Medical History rotator cuff tear Surgical History 2 BACK INJECTIONS 2014 Surgical History LEFT ANKLE 2001 Surgical History CHOLECYSTECTOMY Surgical History nasal surgery Surgical History right Rotator surgery 05-15-22 Surgical History Neck injections/root burnt 12/31 Hospitalization History SEE ABOVE Hospitalization History [facility] [place] onst[facility] 03-02-2023 [facility] Other Hospital Discharge instructions* Attachments The following attachments cannot be sent through Care Everywhere. * Pilonidal Abscess (Colombian) [facility] [employer] Work Phone: Hospital Discharge instructions No data available for this section [facility]ructionsNot on filedocumented in this encounter [facility] filedocumented in this encounter [facility]ructionsNot on filedocumented in this encounter [facility]ructionsNot on filedocumented in this encounter [facility]ructionsNot on filedocumented in this encounter [facility] SystemInstructionsNot on filedocumented in this encounter [facility] note No data available for this section [facility] for referral (narrative)* Consultation (Routine) - Pending Review Specialty Diagnoses / Procedures Referred By Karla cuadra Referred To Contact Otolaryngology Diagnoses JADON (obstructive sleep apnea) Procedures CT OFFICE/OUTPATIENT NEW HIGH MDM 60 MINUTES Brittany Neville NP [address] [facility] [address] [place] [address] Referral ID Status Reason Start Date Expiration Date Visits Requested Visits Authorized [id number] Pending Review Specialty Services Required 11/30/2023 05/28/20[address] Brito for Inspire device. NATALIIA Craven for visit Narrative* Consultation (Routine) - Pending Review Specialty Diagnoses / Procedures Referred By Karla cuadra Referred To Contact Breast Surgery Diagnoses Abnormal mammogram Carmen Fisher MD [address] [place] [id number] Ila Trevizo MD [address] [place] [phone] Referral ID Status Reason Start Date Expiration Date V isits Requested Visits Authorized [id number] Pending Review 05/06/2023 05/05/2024 1 1 [facility] Summary Purpose Family History No Family History Records Found Relationship Condition Age at Onset Recorded Date/T basia father Diabetes mellitus Unknown Heart disease Unknown Not Specified Diabetes mellitus Unknown Relationship Condition Age at Onset Recorded Date/T basia father Diabetes mellitus Unknown Heart disease Unknown Not Specified Diabetes mellitus Unknown father Malignant neoplasm Unknown Unknown Diabetes mellitus Unknown Not Specified Malignant neoplasm Unknown Relationship Condition Age at Onset Recorded Date/T basia mother Diabetes mellitus Unknown Malignant neoplasm Unknown father Malignant neoplasm Unknown Heart disease Unknown Unknown Diabetes mellitus Unknown Advance Directives No Advanced [...] CLINIC. Specialty Diagnoses / Procedures Referred By Contac t Referred To Contact Diagnoses Lumbosacral spondylosis without myelopathy Procedures Case request operating room: INJECTION BLOCK NERVE MEDIAL BRANCH: left L45 51 Gaurav Sellers, PA [address] [place] [address] Referral ID Status Reason Start Date Expiration Date V isits Requested Visits Authorized [id number] Pending Review 04/28/2023 04/27/2024 1 1 Chief Complaint and Reason for Visit Chief Complaint Obesity Abdominal Pain, Rectal Bleeding Chief Complaint WMN f/u 2 month follow up Reason for Visit ADHD BMI 36.0-36.9,adult Constipation Diabetes mellitus with hyperglycemia Fatty liver IBS (irritable bowel syndrome) Obesity Shifting sleep-work schedule, affecting sleep Constipation Elevated liver function tests Fatty liver IBS (irritable bowel syndrome) Chief Complaint Admit Date WM RD follow up - 2 mo January 20 9:31am Unknown March 09, 2024 9: 36pm Additional Source Comments INFORMATION SOURCE (unrecogn ized section and content) DATE CREATED AUTHOR 08/26/2017 [facility] DATE CREATED AUTHOR AUTHOR'S ORGANIZ ATION 05/30/2022 [facility] DATE CREATED AUTHOR AUTHOR'S ORGANIZ ATION 01/18/2023 [facility] DATE CREATED AUTHOR AUTHOR'S ORGANIZ ATION 06/04/2023 [facility] DATE CREATED AUTHOR AUTHOR'S ORGANIZ ATION 10/10/2023 [facility] DATE CREATED AUTHOR AUTHOR'S ORGANIZ ATION 11/30/2023 [facility] DATE CREATED AUTHOR AUTHOR'S ORGANIZ ATION 12/22/2023 [facility] DATE CREATED AUTHOR AUTHOR'S ORGANIZ ATION 02/05/2024 [facility] DATE CREATED AUTHOR AUTHOR'S ORGANIZ ATION 02/12/2024 [facility] DATE CREATED AUTHOR AUTHOR'S ORGANIZ ATION 03/15/2024 [facility] Reason for Visit (unrecogniz ed section and [...] kids in triage. Reason Comments New Patient Reason Onset Date Comments Medication Problem 02/16/2024 Reason Comments Sleep Apnea Headache Numbness Reason Comments Med Refill Ordered Prescriptions (unrec ognized section and content) Prescription Sig Dispensed Refills Start Date End Da te clindamycin (CLEOCIN) 150 MG capsule Take 3 capsules by mouth in the morning and 3 capsules at noon and 3 capsules before bedtime. Do all this for 10 days. 90 capsule 0 10/12/2021 10/22/2021 Prescription Sig Dispensed Refills Start Date End Da te sfxxscsj-duvgrlrei-zpmgjk ortisone (CORTISPORIN) 3.5-69089-[address] 4 drops into the [...] Infection 0145 (Given - Provid er: Leroy oRca, ZEYNEP) ondansetron (ZOFRAN-ODT) disintegrating tablet 4 mg [...] 1532 (New Bag - Prov ider: Ranjana Hyde RN)1756 (Stopped - Provider: Ranjana Hyde RN) Care Teams (unrecognized sec tion and content) [employer] Relationship Specialty Start Date End Date Shawna Mcfadden DO [address] [place], [place] [phone] PCP - General Family Medicine 10/12/21 [employer] Relationship Specialty Start Date End Date Shawna Mcfadden DO [address] [place] [address] PCP - General Family Medicine 10/12/21 [employer] Relationship Specialty Start Date End Date Shawna Mcfadden DO [address] [place] [address] PCP - General Family Medicine 10/12/21 [employer] Relationship Specialty Start Date End Date Shawna Mcfadden DO [address] [place] [address] PCP - General Family Medicine 05/02/22 [employer] Relationship Specialty Start Date End Date Shawna Mcfadden DO [address] [place] [address] PCP - General Family Medicine 10/12/21 [employer] Relationship Specialty Start Date End Date Shawna Mcfadden DO [address] [place] [address] PCP - General Family Medicine 05/02/22 Team [...] Care Provider Active Start: March 18, 2023 [employer] Relationship Specialty Start Date End Date Shawna Mcfadden DO [address] [place] [address] PCP - General Family Medicine 05/02/22 [employer] Relationship Specialty Start Date End Date Shawna Mcfadden DO [address] [place] [address] PCP - General Family Medicine 10/12/21 [employer] Relationship Specialty Start Date End Date Shawna Mcfadden DO [address] [place] [address] PCP - General Family Medicine 05/02/22 [employer] Relationship Specialty Start Date End Date Shawna Mcfadden DO [address] [place] [address] PCP - General Family Medicine 10/12/21 [employer] Relationship Specialty Start Date End Date Shawna Mcfadden Rena [address] [place] [address] PCP - General Family Medicine 05/02/22 [employer] Relationship Specialty Start Date End Date Shawna Mcfadden [address] [place] [id number] PCP - General Family Medicine 05/02/22 Team Status: Active Member Role Status Dates Rory Driver , [facility]- Primary Care Provider Active Team Status: Inactive Member Role Status Dates Gayathri Adams APRN Attending Provider Active Start: May 21, 2023 End: May 21, 2023 Rory Driver , [facility] Primary Care Provider Active Start: May 21, 2023 End: May 21, 2023 Team Status: Inactive Member Role Status Dates Jan Garg APRN Attending Provider Active Start: May 21, 2023 End: May 21, 2023 Rory Driver , [facility] Primary Care Provider Active Start: May 21, 2023 End: May 21, 2023 [employer] Relationship Specialty Start Date End Date Shawna Mcfadden DO [address] [place] [address] PCP - General Family Medicine 10/12/21 [employer] Relationship Specialty Start Date End Date Shawna Mcfadden DO [address] [place], [place] [id number] PCP - General Family Medicine 10/12/21 [employer] Relationship Specialty Start Date End Date Loreto Mcneal APRN - 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 [address] [place] [address] PCP - General 11/11/23 [employer] Relationship Specialty Start Date End Date Loreto Mcneal APRN - NP [address] [facility] [place] [address] PCP - General 11/11/23 [employer] Relationship Specialty Start Date End Date Loreto Mcneal APRN - NP [address] [facility] [place] [address] PCP - General 11/11/23 [employer] Relationship Specialty Start Date End Date [facility] [address] [place], [place] PCP - General Family Medicine 10/05/23 [employer] Relationship Specialty Start Date End Date Loreto Mcneal APRN - NP [address] [facility] [place] [address] PCP - General 11/11/23 [employer] Relationship Specialty Start Date End Date Shawna Mcfadden DO [address] [place] [address] PCP - General Family Medicine 04/14/22 Key Andrea NP [address] [place] [address] Referring Physician Family Medicine 08/13/23 [employer] Relationship Specialty Start Date End Date Key Andrea NP [address] [place] [address] Referring Physician Family Medicine 08/13/23 [employer] Relationship Specialty Start Date End Date Key Andrea NP [address] [place] [address] Referring Physician Family Medicine 08/13/23 [employer] Relationship Specialty Start Date End Date Key Andrea NP [address] [place] [address] Referring Physician Family Medicine 08/13/23 [employer] Relationship Specialty Start Date End Date Shawna Mcfadden DO [address] [place] [address] PCP - General Family Medicine 04/14/22 Key Andrea NP [address] [place], [place] [id number] Referring Physician Family Medicine 08/13/23 Team Status: Inactive Member Role Status Dates Rory Driver [facility] Primary Care Provider Active Start: January 21, 2024 End: January 21, 2024 MELE Best Attending Provider Active Start: January 21, 2024 End: January 21, 2024 Team Status: Inactive Member Role Status Dates Rory Driver [facility] Primary Care Provider Active Start: March 09, 2024 End: March 09, 2024 Mio Marroquin DO Attending Provider Active S tart: March 09, 2024 End: March 09, 2024 Goals (unrecognized section and content) Goals may [...] BE BASED ON THE PRIMARY CLINICAL RECORDS. [employer] [facility]. provides no warranty or guarantee of the accuracy or completeness of information in this document.
[2024-03-24 11:43] LABS: Basophils Percent Auto 0.4 % (0.2-2.0); Eosinophils Absolute Auto 0.1 10^3/uL (0.0-0.7); Eosinophils Percent Auto 1.1 % (0.9-7.0); Hematocrit 44.6 % (36.0-48.0); Hemoglobin 14.1 g/dL (12.0-16.0); Immature Granulocytes Abs Auto 0.05 10^3/uL (0.00-0.03); Immature Granulocytes Pct Auto 0.5 % (0.0-0.5); Lymphocytes Absolute Auto 2.2 10^3/uL (1.2-3.8); Lymphocytes Percent Auto 21.4 % (20.5-60.0); Mean Corpuscular HGB Conc 31.6 g/dL (29.9-35.2); Mean Corpuscular Hemoglobin 27.3 pg (26.7-34.0); Mean Corpuscular Volume 86.4 fL (81.0-99.0); Monocytes Absolute Auto 0.6 10^3/uL (0.3-0.8); Monocytes Percent Auto 5.8 % (1.7-12.0); Neutrophils Absolute Auto 7.2 10^3/uL (1.4-6.5); Neutrophils Percent Auto 70.8 % (43.0-75.0); Platelet Count 338 10^3/uL (150-450); Red Blood Count 5.16 10^6/uL (4.20-5.40); Red Cell Distribution Width 14.6 % (11.0-15.0); White Blood Count 10.1 10^3/uL (4.0-11.0)
[2024-03-24 12:27] LABS: Percent Iron Saturation 24.9 %
[2024-03-24 12:36] LABS: Anion Gap 14.8; BUN Creatinine Ratio 30.1; Calcium 8.9 mg/dL (8.5-10.1); Carbon Dioxide 27.1 mmol/L (21.0-32.0); Chloride 103 mmol/L (98-107); Estimated GFR (African America >60 (>=60 mL/min/1.73m^2); Estimated GFR (Non-African Ame >60 (>=60 mL/min/1.73m^2); Glucose 94 mg/dL (74-106); Potassium 3.9 mmol/L (3.5-5.1); Sodium 141 mmol/L (136-145); TSH W/ REFLEX FT4 1.272 uIU/mL (0.358-3.740)
[2024-03-25 04:13] LABS: Vitamin B12 540 pg/mL (232-1245)
== END 2024-03-24 11:15 | disposition home or self-care (01) ==
LOC: LAB 11:15
PROVIDERS: PCP Nurse Practitioner Family; Visit Provider Internal Medicine Hematology & Oncology
DX: D64.9 Anemia, unspecified (principal); D50.9 Iron deficiency anemia, unspecified; K90.9 Intestinal malabsorption, unspecified; Z15.09 Genetic susceptibility to other malignant neoplasm
CPT/HCPCS: 36415; 80048; 82306; 82607; 82728; 83540; 83550; 84443; 85025

== ENCOUNTER 2024-03-24 11:33 | Outpatient (OUT) | payer OTHER, SELFPAY ==
--- NOTE | 2024-03-24 11:48 | P.CN_ITS ---
Consult Note: HPI Data of Consult Patient: known to practice within the last 3 years Requesting Physician: Nancy Lipscomb NP Primary Care Provider: Loreto Mcneal NP Consult Narrative Reason for consult: neck/shoulder pain Narrative: Karma Candelaria a 43 year old female presents for evaluation of cervical pain. hx of cervical radiculopathy, was receiving ESIs at prior pain management for cervical radiculopathy with minimal improvement per pt. no recent available imaging. pt engaged in acute care nurse practitioner biweekly with mild relief. has been engaged in PT, dry needling, massage extensively over the last 2 years without improvement in pain or functional ability. Today pain 7/10 burning aching with radiation into BUE. reports prior emg of upper extremities, results not available. currently on duloxetine, gabapentin, flexeril, diclofenac with mild relief without side effects. Pain increased with twisting her head, driving, housework, ADLs. Pain improved with lying and sitting. cc:: CC: Nancy Lipscomb NP Review of Systems ROS Status of ROS 10 or more systems reviewed and unremark able except as noted in history and below Musculoskeletal Reports: neck pain and extremity pain PFSH PFSH Social History Little interest or pleasure in doing things: not at all Feeling down, depressed, or hopeless: not at all Meds Home Medications and Allergies Home Medications ?Medication ?Instructions ?Recorded ?Confirmed ?Type Bifidobacterium infantis 4 mg 4 mg PO DAILY 10/24/23 02/01/24 History capsule (Align (B.infantis)) ascorbic acid (vitamin C) 500 mg 500 mg PO BID 10/24/23 02/01/24 History tablet (Vitamin C) cholecalciferol (vitamin D3) 50 50 mcg PO DAILY 10/24/23 02/01/24 History mcg (2,000 unit) capsule ciclopirox 0.77 % topical cream 1 applic topical Q12H 10/24/23 02/01/24 History duloxetine 60 mg capsule,delayed 60 mg PO DAILY 10/24/23 02/01/24 History release empagliflozin 25 mg tablet 25 mg PO DAILY 10/24/23 02/01/24 History (Jardiance) famotidine 40 mg tablet 40 mg PO DAILY 10/24/23 02/01/24 History fluoxetine 60 mg tablet 60 mg PO DAILY 10/24/23 02/01/24 History gabapentin 300 mg capsule 300 mg PO Q8H 10/24/23 02/01/24 History lamotrigine 200 mg tablet 200 mg PO DAILY 10/24/23 02/01/24 History liraglutide 0.6 mg/0.1 mL (18 mg/3 0.6 mg subcut Q24H 10/24/23 02/01/24 History mL) subcutaneous pen injector (Victoza 3-Ramon) lisdexamfetamine 20 mg capsule 70 mg PO DAILY 10/24/23 02/01/24 History (Vyvanse) lurasidone 120 mg tablet 120 mg PO DAILY 10/24/23 02/01/24 History multivitamin with folic acid 400 1 tab PO DAILY 10/24/23 02/01/24 History mcg tablet (Daily-Kraely (with folic acid)) pioglitazone 30 mg tablet 30 mg PO DAILY 10/24/23 02/01/24 History rosuvastatin 10 mg tablet 10 mg PO DAILY 10/24/23 02/01/24 History sumatriptan succinate 100 mg tablet 100 mg PO PRN migraine headache 10/24/23 History trazodone 50 mg tablet 50 mg PO DAILY 10/24/23 02/01/24 History vitamin B complex 1 tab PO Q24H 10/24/23 02/01/24 History albuterol sulfate 0.63 mg/3 mL 0.63 mg inhalation TID PRN 11/16/23 02/01/24 History solution for nebulization bronchospasm albuterol sulfate 90 mcg/actuation 2 inh inhalation QID PRN shortness 11/16/23 02/01/24 History aerosol inhaler (Proventil HFA) of breath or wheezing biotin injectioin .every other week 11/16/23 History cyclobenzaprine 10 mg tablet 10 mg PO TID PRN muscle spasm #90 11/16/23 02/01/24 Rx tabs diclofenac sodium 75 mg 75 mg PO BID PRN pain #60 tabs 11/16/23 02/01/24 Rx tablet,delayed release fluticasone propionate 50 1 spray intranasal DAILY PRN 11/16/23 02/01/24 History mcg/actuation nasal allergy symptoms spray,suspension (24 Hour Allergy Relief) invizia 11/16/23 History mupirocin 2 % topical ointment topical 11/16/23 History nystatin 100,000 unit/gram topical topical 11/16/23 History cream rizatriptan 10 mg tablet (Maxalt) See Rx Instructions PO .COMPLEX 11/16/23 02/01/24 History tramadol 50 mg tablet 50 mg PO 11/16/23 History ferrous sulfate 325 mg (65 mg 325 mg PO DAILY 01/08/24 02/01/24 History iron) tablet (FeroSul) ketorolac 10 mg tablet 10 mg PO Q8H PRN pain 5 days #15 01/09/24 02/01/24 Rx tabs docusate sodium 100 mg capsule 300 mg PO DAILY 01/11/24 02/01/24 History linaclotide 290 mcg capsule 290 mcg PO DAILY 01/11/24 02/01/24 History (Linzess) gabapentin 300 mg capsule 600 mg (2 x 300 mg) PO TID #180 02/01/24 Rx caps cyclobenzaprine 10 mg tablet See Rx Instructions .Route 03/10/24 Rx .COMPLEX PRN muscle spasm #90 tabs diclofenac sodium 75 mg 75 mg PO BID #60 tabs 03/10/24 Rx tablet,delayed release Allergies Allergy/AdvReac Type Severity Reaction Status Date / Time cephalexin (From Keflex) Allergy Intermediate Rash Verified 02/01/24 08:38 citalopram (From Celexa) Allergy Intermediate Rash Verified 02/01/24 08:38 metformin Allergy Intermediate Nausea Verified 02/01/24 08:38 Exam Constitutional Documenting provider has reviewed patient's vital signs: yes Common normals: no apparent distress, oriented x3, healthy appearing, alert and well nourished General appearance: cooperative [facility] Common normals: normocephalic, hearing grossly normal bilaterally and moist oral mucous membranes Head and scalp: normocephalic Eye Common normals: PERRL Pupil: PERRL Neck & C-Spine Common normals: full ROM General: normal visual inspection Cervical spine: cervical ROM abnormal, pain with cervical ROM and cervical spine tenderness Other: positive spurlings strength 4/5 in BUE decreased sensation to C5,6,7 facet loading positive C3-6 Chest Common normals: inspection of chest normal Respiratory Common normals: normal respiratory effort, no retractions and no use of accessory muscles Neuro Common normals: oriented x3, CN's II-XII intact bilaterally, moves all extremities, no focal motor deficits, no sensory deficits noted and deep tendon reflexes 2+ bilaterally Sensorium/orientation: alert Motor exam: strength 5/5 throughout and no movement abnormalities noted Psych Common normals: mental status grossly normal, thought process normal, cooperative, affect normal, speech normal and activity/motor behavior normal Speech: normal speech Thought process: normal thought process Assessment and Plan Assessment and Plan (1) Cervical radiculopathy: (2) Cervical spondylosis: Plan update cervical xray and MRI of cervical spine without contrast to assess severe neck pain and cervical radiculopathy unresponsive to the above listed therapies. essential to update in consideration of alternative interventional therapy vs NS consultation. f/u to review imaging
== END 2024-03-24 11:34 | disposition home or self-care (01) ==
LOC: PM 11:33
PROVIDERS: PCP Nurse Practitioner Family; Visit Provider Nurse Practitioner
DX: M47.22 Other spondylosis with radiculopathy, cervical region (principal); D64.9 Anemia, unspecified; D50.9 Iron deficiency anemia, unspecified; K90.9 Intestinal malabsorption, unspecified; Z15.09 Genetic susceptibility to other malignant neoplasm
CPT/HCPCS: 36415; 72050; 80048; 82306; 82607; 82728; 83540; 83550; 84443; 85025; G0463

== ENCOUNTER 2024-03-24 12:13 | Outpatient (OUT) | payer OTHER, SELFPAY ==
--- NOTE | 2024-03-24 12:17 | XR_ITS ---
The [address] [address] Patient Name: PEE WHITEHEAD MRN: [id number] date: 1980 Sex: F Assigned Patient Location: [facility] Current Patient Location: [facility] Accession/Order Number: [id number] Exam Date: 03/24/2024 12:20 Report Date: 03/24/2024 12:57 At the request of: MILE ANDERSON Procedure: XR cervical spine 5V EXAMINATION: XR cervical spine 5V HISTORY: Cervical Radiculopathy COMPARISON: No relevant comparison available. FINDINGS: BONES: Loss of normal cervical lordosis. No acute fracture or spondylolisthesis. Moderate degenerative changes C5-C6 DISC SPACES: Moderate narrowing C5-C6 PARASPINOUS: Negative. No paraspinous abnormality is seen. OTHER: Negative. XR/XR cervical spine 5V IMPRESSION: Moderate degenerative changes C5-C6 Electronically authenticated by: DOMENICA SCHMIDT Date: 03/24/2024 12:57
== END 2024-03-24 12:14 | disposition home or self-care (01) ==
LOC: RAD 12:14
PROVIDERS: PCP Nurse Practitioner Family; Visit Provider Nurse Practitioner
DX: M54.12 Radiculopathy, cervical region (principal)
CPT/HCPCS: 72050

== ENCOUNTER 2024-03-31 17:05 | Emergency (ER) | payer OTHER, SELFPAY ==
[2024-03-31] VITALS (10 sets, daily range): BP systolic 133; BP diastolic 78; PULSE 103–117; TEMP 37.2; O2SAT 95–99; BMI 38.8
--- NOTE | 2024-03-31 17:14 | XR_ITS ---
The [address] [address] Patient Name: PEE WHITEHEAD MRN: [id number] date: 1980 Sex: F Assigned Patient Location: ER Current Patient Location: ER Accession/Order Number: [id number] Exam Date: 03/31/2024 17:22 Report Date: 03/31/2024 17:53 At the request of: GABY DE SOUZA Procedure: XR chest 1V EXAM: XR chest 1V , 03/31/2024 HISTORY: cough COMPARISON: Previous x-ray from 2022. TECHNIQUE: X-ray of the chest, portable upright AP view. FINDINGS: Cardiac silhouette within normal limits. Calcified nodule left lung with calcified left hilar/mediastinal lymph nodes, consistent with old granulomas. No acute infiltrate or evidence of pleural effusion. No hilar or mediastinal evident. No acute osseous findings. No significant interval change. XR/XR chest 1V IMPRESSION: No acute cardiopulmonary findings. Electronically authenticated by: VANE DE LA PAZ Date: 03/31/2024 17:53
--- NOTE | 2024-03-31 17:28 | ECG_ITS ---
The [facility] Test Date: 2024-03-31 Pat Name: PEE WHITEHEAD Department: Room: - Gender: Female Presentation Team Member: : 1980 Requested By: Order Number: [id number] Reading MD: TOBY HEWITT Measurements Intervals [place] Rate: 110 P: 48 NM: 126 QRS: 60 QRSD: 74 T: 10 QT: 334 QTc: 399 Interpretive Statements 1120 Sinus tachycardia 9140 abnormal rhythm ECG Compared to ECG 12/05/2022 08:04:19 Sinus rhythm no longer present Electronically Signed On 04-04-2024 20:43:26 EST by TOBY HEWITT
--- NOTE | 2024-03-31 17:29 | ED_ITS ---
HPI - URI/Sore Throat General Chief Complaint: Upper Respiratory Infection Stated Complaint: possible pneumonia Time Seen by Provider: 03/31/24 17:06 Source: patient History of Present Illness HPI Narrative: Patient is a 43-year-old female who presents to the emergency department for persistent upper respiratory symptoms. She states she was diagnosed with COVID 3 weeks ago in this emergency department. She states she has continued to have cough, shortness of breath, hot and cold chills, coughing up blood, nosebleeds. She states her oncologist who manages her iron levels called in steroids for her which she has not started because she was not feeling well. She states her friend is a doctor and told her she has walking pneumonia, she states multiple other people that she knows have told her she has walking pneumonia so she presents to the ER today to be checked for walking pneumonia. Related Data Home Medications ?Medication ?Instructions ?Recorded ?Confirmed Bifidobacterium infantis 4 mg 4 mg PO DAILY 10/24/23 03/31/24 capsule (Align (B.infantis)) ascorbic acid (vitamin C) 500 mg 500 mg PO BID 10/24/23 03/31/24 tablet (Vitamin C) ciclopirox 0.77 % topical cream 1 applic topical Q12H 10/24/23 03/31/24 duloxetine 60 mg capsule,delayed 60 mg PO DAILY 10/24/23 03/31/24 release empagliflozin 25 mg tablet 25 mg PO DAILY 10/24/23 03/31/24 (Jardiance) famotidine 40 mg tablet 40 mg PO DAILY 10/24/23 03/31/24 fluoxetine 60 mg tablet 60 mg PO DAILY 10/24/23 03/31/24 gabapentin 300 mg capsule 300 mg PO Q8H 10/24/23 03/31/24 lamotrigine 200 mg tablet 200 mg PO DAILY 10/24/23 03/31/24 lurasidone 120 mg tablet 120 mg PO DAILY 10/24/23 03/31/24 multivitamin with folic acid 400 1 tab PO DAILY 10/24/23 03/31/24 mcg tablet (Daily-Karely (with folic acid)) pioglitazone 30 mg tablet 30 mg PO DAILY 10/24/23 03/31/24 rosuvastatin 10 mg tablet 10 mg PO DAILY 10/24/23 03/31/24 sumatriptan succinate 100 mg tablet 100 mg PO Q2H PRN migraine headache 10/24/23 03/31/24 trazodone 50 mg tablet 50 mg PO DAILY 10/24/23 03/31/24 vitamin B complex 1 tab PO Q24H 10/24/23 03/31/24 albuterol sulfate 0.63 mg/3 mL 0.63 mg inhalation TID PRN 11/16/23 03/31/24 solution for nebulization bronchospasm albuterol sulfate 90 mcg/actuation 2 inh inhalation QID PRN shortness 11/16/23 03/31/24 aerosol inhaler (Proventil HFA) of breath or wheezing biotin injectioin .every other week 11/16/23 fluticasone propionate 50 1 spray intranasal DAILY PRN 11/16/23 03/31/24 mcg/actuation nasal allergy symptoms spray,suspension (24 Hour Allergy Relief) invizia 11/16/23 rizatriptan 10 mg tablet (Maxalt) See Rx Instructions PO .COMPLEX 11/16/23 03/31/24 ferrous sulfate 325 mg (65 mg 325 mg PO DAILY 01/08/24 03/31/24 iron) tablet (FeroSul) docusate sodium 100 mg capsule 300 mg PO DAILY 01/11/24 03/31/24 linaclotide 290 mcg capsule 290 mcg PO DAILY 01/11/24 03/31/24 (Linzess) cholecalciferol (vitamin D3) 125 125 mcg PO DAILY 03/31/24 03/31/24 mcg (5,000 unit) tablet (Vitamin D3) fexofenadine 180 mg tablet 180 mg PO DAILY 03/31/24 03/31/24 lisdexamfetamine 70 mg capsule 70 mg PO QAM 03/31/24 03/31/24 (Vyvanse) metoprolol succinate 25 mg 12.5 mg PO DAILY 03/31/24 03/31/24 tablet,extended release 24 hr prednisone 10 mg tablet 10 mg PO DAILY 03/31/24 03/31/24 Previous Rx's ?Medication ?Instructions ?Recorded diclofenac sodium 75 mg 75 mg PO BID PRN pain #60 tabs 11/16/23 tablet,delayed release cyclobenzaprine 10 mg tablet See Rx Instructions .Route 03/10/24 .COMPLEX PRN muscle spasm #90 tabs azithromycin 250 mg tablet See Rx Instructions PO .COMPLEX #6 03/31/24 (Zithromax Z-Ramon) tabs [id number] 10 ml PO Q6H PRN cold symptoms 03/31/24 2 mg-30 mg-10 mg/5 mL oral syrup #200 mL (Bromfed DM) ondansetron 4 mg disintegrating 4 mg PO Q6H PRN nausea and 03/31/24 tablet vomiting #12 tabs Allergies Allergy/AdvReac Type Severity Reaction Status Date / Time cephalexin (From Keflex) Allergy Intermediate Rash Verified 02/01/24 08:38 citalopram (From Celexa) Allergy Intermediate Rash Verified 02/01/24 08:38 metformin Allergy Intermediate Nausea Verified 02/01/24 08:38 Review of Systems ROS Constitutional Reports: chills; Denies: fever Ears, nose, mouth, and throat Reports: nasal congestion; Denies: throat pain Cardiovascular Denies: chest pain Respiratory Reports: shortness of breath, cough, change in phlegm color and coughing up blood Gastrointestinal Denies: nausea or vomiting Neurological Denies: numbness in extremities or weakness in extremities Hematologic/Lymphatic Denies: easy bruising or easy bleeding PFSH PFSH Social History Little interest or pleasure in doing things: not at all Feeling down, depressed, or hopeless: not at all Exam Narrative Exam Narrative: Gen.: Awake, alert, in no distress Head: Normocephalic, atraumatic ENT: Moist mucous membranes Respiratory: No respiratory distress, lungs clear bilaterally Cardio: Tachycardia Gastrointestinal: Abdomen is soft, nondistended and nontender to palpation Extremities: Moves extremities equally Psych: Normal mood and affect Neuro: No focal neuro deficit Skin: Warm, dry, intact Constitutional Vital Signs, click to edit/add: Last Vital Signs Temp 98.9 F 03/31/24 17:09 Pulse 109 H 03/31/24 17:09 Resp 18 03/31/24 17:09 BP 133/78 03/31/24 17:09 Pulse Ox 97 03/31/24 17:09 O2 Del Method Room Air 03/31/24 17:09 Course Vital Signs Vital signs: Vital Signs Temperature 98.9 F 03/31/24 17:09 Pulse Rate 109 H 03/31/24 17:09 Respiratory Rate 18 01/30/25 17:09 Blood Pressure 133/78 03/31/24 17:09 Pulse Oximetry 97 03/31/24 17:09 Oxygen Delivery Method Room Air 03/31/24 17:09 Temperature 98.9 F 03/31/24 17:09 Pulse Rate 109 H 03/31/24 17:09 Respiratory Rate 18 03/31/24 17:09 Blood Pressure 133/78 03/31/24 17:09 Pulse Oximetry 97 03/31/24 17:09 Oxygen Delivery Method Room Air 03/31/24 17:09 MDM - URI/Sore Throat MDM Narrative Medical decision making narrative: Laboratory studies including D-dimer, troponin, BNP are within normal limits. The patient was treated with IV fluids, Solu-Medrol as she did not feel the steroid she was given today. Chest x-ray shows no evidence of acute cardiopulmonary changes. Patient will be placed on Bromfed-DM and Zofran for home. Suspect she continues to have a cough from COVID infection 3 weeks ago. Return to the ER if symptoms change or worsen and follow-up with primary care. SUPERVISED APC VISIT, PHYSICIAN ATTESTATION: Based on the medical record the care appears appropriate. ? Medical Records Attestation: I reviewed the patient's medical records. Lab Data Attestation: I reviewed the patient's lab results. Labs: Lab Results 03/31/24 03/31/24 Range/Units 17:15 17:45 WBC 7.8 (4.0-11.0) 10^3/uL RBC 5.09 (4.20-5.40) 10^6/uL Hgb 14.1 (12.0-16.0) g/dL Hct 43.6 (36.0-48.0) % MCV 85.7 (81.0-99.0) fL MCH 27.7 (26.7-34.0) pg MCHC 32.3 (29.9-35.2) g/dL RDW 14.3 (11.0-15.0) % Plt Count 329 (150-450) 10^3/uL MPV 10.4 (9.5-13.5) fL Neut % (Auto) 65.2 (43.0-75.0) % Lymph % (Auto) 24.9 (20.5-60.0) % [place] % (Auto) 7.8 (1.7-12.0) % Eos % (Auto) 1.4 (0.9-7.0) % Baso % (Auto) 0.3 (0.2-2.0) % Neut # (Auto) 5.1 (1.4-6.5) 10^3/uL Lymph # (Auto) 2.0 (1.2-3.8) 10^3/uL [place] # (Auto) 0.6 (0.3-0.8) 10^3/uL Eos # (Auto) 0.1 (0.0-0.7) 10^3/uL Baso # (Auto) 0.0 (0.0-0.1) 10^3/uL Abs Immat Gran (auto) 0.03 (0.00-0.03) 10^3/uL Imm/Tot Granulo (auto) 0.4 (0.0-0.5) % D-Dimer 0.27 (<=0.59) mg/L FEU Sodium 141 (136-145) mmol/L Potassium 4.3 (3.5-5.1) mmol/L Chloride 105 (98-107) mmol/L Carbon Dioxide 23.1 (21.0-32.0) mmol/L Anion Gap 17.2 BUN 18.0 (7.0-18.0) mg/dL Creatinine 0.74 (0.55-1.02) mg/dL Est GFR ( Amer) >60 (>=60 mL/min/1.73m^2) Est GFR (Non-Af Amer) >60 (>=60 mL/min/1.73m^2) BUN/Creatinine Ratio 24.3 Glucose 82 (74-106) mg/dL Calcium 8.7 (8.5-10.1) mg/dL Total Bilirubin 0.3 (0.2-1.0) mg/dL AST 18 (15-37) U/L ALT 44 (14-59) U/L Alkaline Phosphatase 88 (46-116) U/L Total Protein 7.5 (6.4-8.2) g/dL Albumin 3.5 (3.4-5.0) g/dL Globulin 4.0 g/dL Albumin/Globulin Ratio 0.9 Influenza Type A Ag Negative Influenza Type B Ag Negative SARS-CoV-2 Ag (CV2AG) Negative (NEGATIVE) Imaging Data Chest x-ray: Attestation: I have reviewed the pertinent imaging results. Radiologist's impression: ITS Impressions Chest X-Ray 03/31/24 17:14 IMPRESSION: No acute cardiopulmonary findings. Electronically authenticated by: VANE DE LA PAZ Date: 03/31/2024 17:53 ECG Data Attestation: I personally reviewed and interpreted this ECG as follows: (Sinus tachycardia at a rate of 110, no acute ST elevation or ectopy. EKG reviewed by attending physician) Discharge Plan Discharge Chief Complaint: Upper Respiratory Infection Clinical Impression: Upper respiratory infection, Cough Patient Disposition: Home, Self-Care Time of Disposition Decision: 18:30 Condition: Good Prescriptions / Home Meds: New azithromycin [Zithromax Z-Ramon] 250 mg tablet See Rx Instructions .ROUTE .COMPLEX Qty: 6 0RF Rx Instructions: For 250 mg dose pack: take 500 mg today (day 1), then 250 mg for 4 days (days 2-5) [id number]-[id number] [Bromfed DM] 2-30-10 mg/5 mL syrup 10 ml PO Q6H PRN (Reason: cold symptoms) Qty: 200 0RF ondansetron 4 mg tablet,disintegrating 4 mg PO Q6H PRN (Reason: nausea and vomiting) Qty: 12 0RF No Action ascorbic acid (vitamin C) [Vitamin C] 500 mg tablet 500 mg PO BID Align (B.infantis) 4 mg capsule 4 mg PO DAILY ciclopirox 0.77 % cream 1 applic TOPICAL Q12H duloxetine 60 mg capsule,delayed release(DR/EC) 60 mg PO DAILY Jardiance 25 mg tablet 25 mg PO DAILY famotidine 40 mg tablet 40 mg PO DAILY fluoxetine 60 mg tablet 60 mg PO DAILY gabapentin 300 mg capsule 300 mg PO Q8H lamotrigine 200 mg tablet 200 mg PO DAILY lurasidone 120 mg tablet 120 mg PO DAILY multivitamin with folic acid [Daily-Karely (with folic acid)] 400 mcg tablet 1 tab PO DAILY pioglitazone 30 mg tablet 30 mg PO DAILY rosuvastatin 10 mg tablet 10 mg PO DAILY sumatriptan succinate 100 mg tablet 100 mg PO Q2H PRN (Reason: migraine headache) trazodone 50 mg tablet 50 mg PO DAILY Rx Instructions: HS vitamin B complex Tablet 1 tab PO Q24H diclofenac sodium 75 mg tablet,delayed release (DR/EC) 75 mg PO BID PRN (Reason: pain) Qty: 60 2RF rizatriptan [Maxalt] 10 mg tablet See Rx Instructions .ROUTE .COMPLEX Rx Instructions: take 1 tab at onset of headache; if no relief may repeat 1 tab after at least 2 hrs; max = 3 tabs/24 hr albuterol sulfate [Proventil HFA] 90 mcg/actuation HFA aerosol inhaler 2 inh inhalation QID PRN (Reason: shortness of breath or wheezing) fluticasone propionate [24 Hour Allergy Relief] 50 mcg/actuation spray,suspension 1 spray intranasal DAILY PRN (Reason: allergy symptoms) Rx Instructions: administer into each nostril albuterol sulfate 0.63 mg/3 mL solution for nebulization 0.63 mg inhalation TID PRN (Reason: bronchospasm) biotin injectioin .every other week invizia ferrous sulfate [FeroSul] 325 mg (65 mg iron) tablet 325 mg PO DAILY cyclobenzaprine 10 mg tablet See Rx Instructions .ROUTE .COMPLEX PRN (Reason: muscle spasm) Qty: 90 2RF Rx Instructions: 10MG PO AM 20MG PO HS cholecalciferol (vitamin D3) [Vitamin D3] 125 mcg (5,000 unit) tablet 125 mcg PO DAILY fexofenadine 180 mg tablet 180 mg PO DAILY lisdexamfetamine [Vyvanse] 70 mg capsule 70 mg PO QAM metoprolol succinate 25 mg tablet extended release 24 hr 12.5 mg PO DAILY prednisone 10 mg tablet 10 mg PO DAILY Patient Comments: as directed docusate sodium 100 mg capsule 300 mg PO DAILY Linzess 290 mcg capsule 290 mcg PO DAILY Print Language: Indonesian Instructions: Acute Cough (ED) Referrals: Loreto Mcneal NP [Primary Care Provider] - 1 week
[2024-03-31 17:38] LABS: Influenza Virus A Antigen Negative; Influenza Virus B Antigen Negative; Internal Control Within Normal Limits; SARS-CoV-2 Ag NEGATIVE (NEGATIVE)
[2024-03-31 17:53] LABS: Basophils Percent Auto 0.3 % (0.2-2.0); Eosinophils Absolute Auto 0.1 10^3/uL (0.0-0.7); Eosinophils Percent Auto 1.4 % (0.9-7.0); Hematocrit 43.6 % (36.0-48.0); Hemoglobin 14.1 g/dL (12.0-16.0); Immature Granulocytes Abs Auto 0.03 10^3/uL (0.00-0.03); Immature Granulocytes Pct Auto 0.4 % (0.0-0.5); Lymphocytes Percent Auto 24.9 % (20.5-60.0); Mean Corpuscular HGB Conc 32.3 g/dL (29.9-35.2); Mean Corpuscular Hemoglobin 27.7 pg (26.7-34.0); Mean Corpuscular Volume 85.7 fL (81.0-99.0); Mean Platelet Volume 10.4 fL (9.5-13.5); Monocytes Absolute Auto 0.6 10^3/uL (0.3-0.8); Monocytes Percent Auto 7.8 % (1.7-12.0); Neutrophils Absolute Auto 5.1 10^3/uL (1.4-6.5); Neutrophils Percent Auto 65.2 % (43.0-75.0); Platelet Count 329 10^3/uL (150-450); Red Blood Count 5.09 10^6/uL (4.20-5.40); Red Cell Distribution Width 14.3 % (11.0-15.0); White Blood Count 7.8 10^3/uL (4.0-11.0)
[2024-03-31] MEDS: METHYLPREDNISOLONE SOD SUCC PF 125 MG/2 ML VIAL IVP (17:56)
[2024-03-31] MEDS: 0.9 % SODIUM CHLORIDE 1,000 ML 999 ML IV (17:56)
[2024-03-31 18:07] LABS: D Dimer 0.27 mg/L FEU (<=0.59)
[2024-03-31 18:10] LABS: Alanine Aminotransferase 44 U/L (14-59); Albumin Globulin Ratio 0.9; Albumin Level 3.5 g/dL (3.4-5.0); Alkaline Phosphatase 88 U/L (46-116); Anion Gap 17.2; Aspartate Amino Transferase 18 U/L (15-37); BUN Creatinine Ratio 24.3; Bilirubin Total 0.3 mg/dL (0.2-1.0); Calcium 8.7 mg/dL (8.5-10.1); Carbon Dioxide 23.1 mmol/L (21.0-32.0); Chloride 105 mmol/L (98-107); Estimated GFR (African America >60 (>=60 mL/min/1.73m^2); Estimated GFR (Non-African Ame >60 (>=60 mL/min/1.73m^2); Glucose 82 mg/dL (74-106); Potassium 4.3 mmol/L (3.5-5.1); Sodium 141 mmol/L (136-145); Total Protein 7.5 g/dL (6.4-8.2)
[2024-03-31 18:17] LABS: Troponin I High Sensitivity 4.1 pg/mL (4.0-51.3)
--- OUTSIDE RECORDS SUMMARY | 2024-03-31 18:20 | XMS_ITS | CCD ---
Author Organization [facility] CliniSyme Care Team Providers Care Lifter Driver Name Role Phone Juan Ramon Jean Unavailable [...] Rumschviviane MARQUEZ, Shawna K Primary Care Provider [phone] MD Yo Blank Attending Provider [phone] Rumzandra DO Shawna Primary Care Provider RUMSCHLAG, SHAWNA K Referring Unavailable RUMSCHLAG, SHAWNA K Primary Care Unavailable RUMSCHLAG, SHAWNA K Referring Unavailable RUMSCHLAG, SHAWNA K Primary Care Unavailable DEEPIKA ROBLEDO Attending Unavailable JORGE, CARMEN Referring Unavailable RUMSCHLAG, SHAWNA K Primary Care Unavailable DWAYNE KHOURY Attending Unavail able RUMSCHLAG, SHAWNA K Referring Unavailable SERVICES, [facility] Unava ilable Fredis DELIVERY TABLE FEEDER - GULLET SLITTER, Loreto Primary Care [facility] ider LULY ENGLISH Attending Unavailable GABY JUNE Attending Unavailable ROEL GARBER Attending Unavailable LAILA LIEBERMAN Attending Unavailable BRITTANY NEVILLE Attending Unavailable SERVICES, [facility] Primary Care Unava ilable SHAMMO, RORY Referring Unavailable RUMSCHLAG, SHAWNA K Primary Care Unavailable SHAMMO, RORY Referring Unavailable RUMSCHLAG, SHAWNA K Primary Care Unavailable PETE SILVER Attending Unavailable PETE SILVER Referring Unavailable RUMSCHLAG, SHAWNA K Primary Care Unavailable PETE SILVER Admitting Unavailable SILVERPETE Attending Unavailable RUMSCHLAG, SHAWNA K Referring Unavailable RUMSCHLAG, SHAWNA K Primary Care Unavailable JORGE, CARMEN Referring Unavailable SERVICES, [facility] Primary Care Unava ilable GAURAV SELLERS Attending Unavailable RUMSCHLAG, SHAWNA K Referring Unavailable RUMSCHLAG, SHAWNA K Primary Care Unavailable Services, [facility] Primary Care Provider Bk DALE, Ugo Stoddard [...] Care Unavailable RUMSCHLAG, SHAWNA Referring Unavailable Zully GULLET SLITTER, Key Unavailable Shawna Mcfadden DO Primary Care Provider [facility] Primary Care Provider Mio Marroquin DO [...] (antibiotic) (2 sources) Cephalexin Drug Allergy 7 [facility] Serotonin Reuptake Inhibitors (SSRIs) (2 sources) Citalopram Drug Allergy 7 [facility] (20 sources) cephalexin; Translations: [Keflex] Drug Allergy 3 [facility] Repository (4 sources) citalopram; Translations: [CeleXA] Drug Allergy 3 AOF, heart palpitation [facility] Repository (20 sources) Cephalexin; Translations: [CEPHALEXIN] Drug Allergy 4 [facility] Work Phone: (20 sources) Citalopram; Translations: [CITALOPRAM] Drug Allergy 4 Hives, anaphylaxis [facility] (5 sources) metFORMIN Drug Allergy Unknown [employer] Other (20 sources) metFORMIN; Translations: [METFORMIN] Drug Allergy 3 Unknown, Unknown Reaction [facility] Comment on above: bottoms out to unde r 40 (17 sources) POISON DEVORAH EXTRACT; Translations: [POISON DEVOARH EXTRACT] Drug Allergy 3 [facility] (19 sources) Metformin And Related Propensity to adverse reactions to drug 4 Other (See Comments) [facility] (1 source) Cephalexin Drug Allergy 4 [facility] Repository (1 source) Citalopram Drug Allergy 4 [facility] Repository (1 source) metFORMIN Drug Allergy [address] [facility] Repository Medications Current Medications Medication Drug Class(es) Dates Sig (Normalized) Sig (Original) [id number] 200 actuat albuterol 0.09 mg/actuat metered dose [...] Orally Once a day Active bifidobacterium animalis [id number] unt / lactobacillus acidophilus [id number] unt oral capsule (5 sources) take 1 [...] / neomycin 3.5 mg/ml / polymyxin b 63401 unt/ml otic solution (1 source) Aminoglycoside Antibacterial, Polymyxin-class Antibacterial, Corticosteroid Start: 10-22-2021 End: 10-29-2021 fqglfmnw-hedbqzskj-oprmmxoib isone (CORTISPORIN) 3.5-13173-[address] 4 drops into the [...] by mouth in the morning. 12/26/2022 Active ythytxpg-jhty-PC-c alcium &mins (THERAGRAN-M) 9 mg iron-400 mcg tablet (8 sources) okgzxxiv-mubf-KR -c alcium &mins (THERAGRAN-M) 9 mg iron-400 mcg tablet Take 1 tablet by mouth in the morning. Active xuwpnyim-wdxm-QE -calcium &mins (THERAGRAN-M) 9 mg iron-400 mcg [...] 3 times a day 0 Active nystatin 508044 unt/ml topical cream (6 sources) Polyene Antifungal [...] 30 days Jan, Active polyethylene glycol 3350 861545 mg / potassium chloride 2970 mg / sodium bicarbonate 6740 mg / sodium chloride 5860 mg / sodium sulfate 86400 mg powder for oral solution (2 sources) [...] Nausea, # 20 tab(s), Refills(s) 0, Pharmacy: [id number], 157, cm, 03/10/19 12:21:00 EST, [...] Start: 05-21-2023 take 2 tablets by mo [facility] once daily at bedtime Tizanidine 4 mg [...] Ordered take 2 tablets by mo [facility] every twenty-four hours tiZANidine HCl 4 MG [...] May 21, 2023 11:36am polyethylene glycol 3350 67370 mg powder for oral solution (7 sources) [...] Beta Streptococcus Isolated 2 Days PERFORMED BY: [place] [address] PATHOLOGIST VERIFICATION REP DALIA SEARS M.D. Normal [facility] Comment on above: Performed By: #### C USTA #### [address] CBC with Auto Differentialon 01-13-2024 Basophils (Bld) [#/Vol] 0.06 10*3/uL [facility] Basophils/100 WBC (Bld) 0 % 0 - 2 % [facility] Eosinophils (Bld) [#/Vol] 0.10 10*3/uL [facility] Eosinophils/100 WBC (Bld) 1 % 1 - 4 % [facility] Erythrocyte distribution width (RBC) [Ratio] 13.6 % 11.8 - 14.4 % [facility] Hematocrit (Bld) [Volume fraction] 43.3 % 36.3 - 47.1 % [facility] Hemoglobin (Bld) [Mass/Vol] 14.0 g/dL 11.9 - 15.1 g/dL [facility] Immature granulocytes (Bld) [#/Vol] 0.10 10*3/uL [facility] Immature granulocytes/100 WBC (Bld) 1 % High 0 [facility] Interpretation and review of laboratory results Abnormal [facility] Lymphocytes/100 WBC (Bld) 22 % Low 24 - 43 % [facility] Lymphocytes/100 WBC (Bld) 2.98 % [facility] MCH (RBC) [Entitic mass] 28.5 pg 25.2 - 33.5 pg [facility] MCHC (RBC) [Mass/Vol] 32.3 g/dL 28.4 - 34.8 g/dL [facility] MCV (RBC) [Entitic vol] 88.2 fL 82.6 - 102.9 fL [facility] Monocytes/100 WBC (Bld) 8 % 3 - 12 % [facility] Monocytes/100 WBC (Bld) 1.12 % [facility] Neutrophils/100 WBC (Bld) 68 % High 36 - 65 % [facility] Nucleated RBC/100 WBC (Bld) [Ratio] 0.0 % 0.0 per 100 WBC [facility] Platelet mean volume (Bld) [Entitic vol] 10.0 fL 8.1 - 13.5 fL [facility] Platelets (Bld) [#/Vol] 452 10*3/uL [facility] RBC (Bld) [#/Vol] 4.91 10*6/uL 3.95 - 5.11 m/uL [facility] Segmented neutrophils/100 WBC (Bld) 9.08 % High [facility] WBC other (Bld) [#/Vol] 13.4 High [facility] CBC with Diffon 01-13-2024 Abs. Basophil 0.06 k/uL Normal 0.00-0.20 [facility] Comment on above: Performed By: #### C DP, CP #### [facility] [address] [place] [address] [place] [address] [employer] Supervisor: Domenica Velázquez MD Abs.Imm.Granulocyte 0.10 k/uL Normal 0.00-0.30 [facility] Comment on above: Performed By: #### C DP, CP #### [address] [place] [id number] [employer] Supervisor: Domenica Velázquez MD Abs.Neutrophil (Seg) 9.08 k/uL High 1.50-8.10 [facility] Comment on above: Performed By: #### C DP, CP #### [address] [place], [place] [address] [employer] Supervisor: Domenica Velázquez MD Basophils/100 WBC (Bld) 0 % Normal 0-2 [facility] Comment on above: Performed By: #### C DP, CP #### [address] [place], [facility]83 [employer] Supervisor: Domenica Velázquez MD Eosinophils (Bld) [#/Vol] 0.10 10*3/uL Normal 0.00-0.44 [facility] Comment on above: Performed By: #### C DP, CP #### [address] [place], [place] 6[address]83 [employer] Supervisor: Domenica Velázquez MD Eosinophils/100 WBC (Bld) 1 % Normal 1-4 [facility] Comment on above: Performed By: #### C DP, CP #### [facility] [address] [place], [place] [id number] [employer] Supervisor: Domenica Velázquez MD Erythrocyte distribution width (RBC) [Ratio] 13.6 % Normal 11.8-14.4 [facility] Comment on above: Performed By: #### C DP, CP #### [facility] [address] [place], [place] [id number] [employer] Supervisor: Domenica Velázquez MD Hematocrit (Bld) [Volume fraction] 43.3 % Normal 36.3-47.1 [facility] Comment on above: Performed By: #### C DP, CP #### [address] [place], [place] 758[address]83 [employer] Supervisor: Domenica Velázquez MD Hemoglobin (Bld) [Mass/Vol] 14.0 g/dL Normal 11.9-15.1 [facility] Comment on above: Performed By: #### C DP, CP #### [address] [place], [place] [phone] [employer] Supervisor: Dmoenica Velázquez MD Immature granulocytes/100 WBC (Bld) 1 % High 0 [facility] Comment on above: Performed By: #### C DP, CP #### [address] [place], [place] 1473983 [employer] Supervisor: Domenica Velázquez MD Lymphocytes (Bld) [#/Vol] 2.98 10*3/uL Normal 1.10-3.70 [facility] Comment on above: Performed By: #### C DP, CP #### [facility] [address] [place], [place] 9577483 [employer] Supervisor: Domenica Velázquez MD Lymphocytes/100 WBC (Bld) 22 % Low 24-43 [facility] Comment on above: Performed By: #### C DP, CP #### [facility] [address] [address] [employer] Supervisor: Domenica Velázquez MD MCH (RBC) [Entitic mass] 28.5 pg Normal 25.2-33.5 [facility] Comment on above: Performed By: #### C DP, CP #### [address] [place], [place] [address]83 [employer] Supervisor: Domenica Velázquez MD MCHC (RBC) [Mass/Vol] 32.3 g/dL Normal 28.4-34.8 [facility] Comment on above: Performed By: #### C DP, CP #### [address] [place], [place] 1191783 [employer] Supervisor: Domenica Velázquez MD MCV (RBC) [Entitic vol] 88.2 fL Normal 82.6-102.9 [facility] Comment on above: Performed By: #### C DP, CP #### [address] [place], [facility]83 [employer] Supervisor: Domenica Velázquez MD Monocytes (Bld) [#/Vol] 1.12 10*3/uL Normal 0.10-1.20 [facility] Comment on above: Performed By: #### C DP, CP #### [address] [place] [address] [employer] Supervisor: Domenica Velázquez MD Monocytes/100 WBC (Bld) 8 % Normal 3-12 [facility] Comment on above: Performed By: #### C DP, CP #### [facility] [address] [place] [address] [place], [place] [phone] [employer] Supervisor: Domenica Velázquez MD Neutrophil (Seg) 68 % High 36-65 [facility] Comment on above: Performed By: #### C DP, CP #### [address] [place], [place] 1077783 [employer] Supervisor: Domenica Velázquez MD NRBC Automated 0.0 per 100 WBC Normal 0.0 [facility] Comment on above: Performed By: #### C DP, CP #### [facility] [address] [place], [place] 1297883 [employer] Supervisor: Domenica Velázquez MD Platelet mean volume (Bld) [Entitic vol] 10.0 fL Normal 8.1-13.5 [facility] Comment on above: Performed By: #### C DP, CP #### [facility] [address] [place], [place] 679[address]83 [employer] Supervisor: Domenica Velázquez MD Platelets (Bld) [#/Vol] 452 10*3/uL Normal 138-453 [facility] Comment on above: Performed By: #### C DP, CP #### [facility] [address] [place], [place] 201[address]83 [employer] Supervisor: Domenica Velázquez MD RBC (Bld) [#/Vol] 4.91 10*6/uL Normal 3.95-5.11 [facility] Comment on above: Performed By: #### C DP, CP #### [facility] [address] [place], [place] [phone] [employer] Supervisor: Domenica Velázquez MD WBC (Bld) [#/Vol] 13.4 10*3/uL High 3.5-11.3 [facility] Comment on above: Performed By: #### C DP, CP #### [facility] [address] [place], [facility]83 [employer] Supervisor: Domenica Velázquez MD [facility] Albumin [Mass/Vol] 4.4 g/dL 3.5 - 5.2 g/dL [facility] Albumin/Globulin [Mass ratio] 1.3 {ratio} 1.0 - 2.5 [facility] ALP [Catalytic activity/Vol] 87 U/L 35 - 104 U/L [facility] ALT [Catalytic activity/Vol] 25 U/L 10 - 35 U/L [facility] Anion gap [Moles/Vol] 11 mmol/L 9 - 16 mmol/L [facility] AST [Catalytic activity/Vol] 17 U/L 10 - 35 U/L [facility] Bilirubin [Mass/Vol] mg/dL 0.00 - 1.20 mg/dL [facility] Calcium [Mass/Vol] 9.9 mg/dL 8.6 - 10. 4 mg/dL [facility] Chloride [Moles/Vol] 101 mmol/L 98 - 10 7 mmol/L [facility] CO2 [Moles/Vol] 25 mmol/L 20 - 31 mmol/L [facility] Creatinine [Mass/Vol] 0.7 mg/dL 0.50 - 0.90 mg/dL [facility] EstEmily Rate - PINF [facility] [...] 112 mg/dL High 74 - 99 mg/dL [facility] Interpretation and review of laboratory results Abnormal [facility] Potassium [Moles/Vol] 4.2 mmol/L 3.7 - 5.3 mmol/L [facility] Protein [Mass/Vol] 7.8 g/dL 6.6 - 8.7 g/dL [facility] Sodium [Moles/Vol] 137 mmol/L 136 - 145 mmol/L [facility] Urea nitrogen [Mass/Vol] 24 mg/dL High 6 - 20 mg/dL [facility] Urea nitrogen/Creatinine [Mass ratio] 34 mg/mg High 9 - 20 [facility] Comp Metabolic Profon 2023 Albumin [Mass/Vol] 4.4 g/dL Normal 3.5-5.2 [facility] Comment on above: Performed By: #### C DP, CP #### [facility] [address] [place], [place] [phone] [employer] Supervisor: Domenica Velázquez MD Albumin/Glob Ratio 1.3 Normal 1.0-2.5 [facility] Comment on above: Performed By: #### C DP, CP #### [facility] [address] [place], [place] [phone] [employer] Supervisor: Domenica Velázquez MD Alkaline Phos 87 U/L Normal 35-104 [facility] Comment on above: Performed By: #### C DP, CP #### [facility] [address] [place], [place] 6396983 [employer] Supervisor: Domenica Velázquez MD ALT [Catalytic activity/Vol] 25 U/L Normal 10-35 [facility] Comment on above: Performed By: #### C DP, CP #### [facility] [address] [place], [place] [phone] [employer] Supervisor: Domenica Velázquez MD Anion gap [Moles/Vol] 11 mmol/L Normal 9-16 [facility] Comment on above: Performed By: #### C DP, CP #### [facility] [address] [place], [place] [phone] [employer] Supervisor: Domenica Velázquez MD AST [Catalytic activity/Vol] 17 U/L Normal 10-35 [facility] Comment on above: Performed By: #### C DP, CP #### [facility] [address] [place], [place] 7995883 [employer] Supervisor: Domenica Velázquez MD Bilirubin [Mass/Vol] mg/dL Normal 0.00-1.20 [facility] Comment on above: Performed By: #### C DP, CP #### [facility] [address] [place], [place] 25[address]83 [employer] Supervisor: Domenica Velázquez MD BUN/CRE Ratio 34 High 9-20 [facility] Comment on above: Performed By: #### C DP, CP #### [facility] [address] [place], [place] [id number] [employer] Supervisor: Domenica Velázquez MD Calcium [Mass/Vol] 9.9 mg/dL Normal 8.6-10.4 [facility] Comment on above: Performed By: #### C DP, CP #### [facility] [address] [place], [place] 3348283 [employer] Supervisor: Domenica Velázquez MD Chloride [Moles/Vol] 101 mmol/L Normal 98-107 [facility] Comment on above: Performed By: #### C DP, CP #### [facility] [address] [place], [place] 1578683 [employer] Supervisor: Domenica Velázquez MD CO2 [Moles/Vol] 25 mmol/L Normal 20-31 [facility] Comment on above: Performed By: #### C DP, CP #### [facility] [address] [place], [place] [phone] [employer] Supervisor: Domenica Velázquez MD Creatinine [Mass/Vol] 0.7 mg/dL Normal 0.50-0.90 [facility] Comment on above: Performed By: #### C DP, CP #### [facility] [address] [place], [place] [phone] [employer] Supervisor: Domenica Velázquez MD GFR/1.73 sq M.predicted among non-blacks MDRD (S/P/Bld) [Vol rate/Area] mL/min/{1.73_m2} Normal >60 [facility] Comment on above: Result Comment: These results [...] Performed By: #### C DP, CP #### [facility] [address] [place], [place] [phone] [employer] Supervisor: Domenica Velázquez MD Glucose [Mass/Vol] 112 mg/dL High 74-99 [facility] Comment on above: Performed By: #### C DP, CP #### [facility] [address] [place], [place] 6101083 [employer] Supervisor: Domenica Velázquez MD Potassium [Moles/Vol] 4.2 mmol/L Normal 3.7-5.3 [facility] Comment on above: Performed By: #### C DP, CP #### [facility] [address] [place], [place] [address]83 [employer] Supervisor: Domenica Velázquez MD Protein [Mass/Vol] 7.8 g/dL Normal 6.6-8.7 [facility] Comment on above: Performed By: #### C DP, CP #### [facility] [address] [place], [place] [phone] [employer] Supervisor: Domenica Velázquez MD Sodium [Moles/Vol] 137 mmol/L Normal 136-145 [facility] Comment on above: Performed By: #### C DP, CP #### [address] [place], [place] 5456083 [employer] Supervisor: Domenica Velázquez MD Urea nitrogen [Mass/Vol] 24 mg/dL High 6-20 [facility] Comment on above: Performed By: #### C DP, CP #### [facility] [address] [place] [address] [employer] Supervisor: Domenica Velázquez MD Microscopic Urinalysison Bacteria LM Ql (Urine sed) 1+ Abnormal None [facility] Epithelial cells LM.HPF (Urine sed) [#/Area] 0 TO 2 [facility] Interpretation and review of laboratory results Abnormal [facility] Mucus Ql (Urine sed) TRACE Abnormal None Bon [facility] RBC LM.HPF (Urine sed) [#/Area] 0 TO 2 [facility] WBC LM.HPF (Urine sed) [#/Area] None [facility] TSHon 01-13-2024 TSH Qn 1.57 m[IU]/L [facility] Thyroid Stim. Horm.on 2023 Thyroid Stim. Horm. 1.57 uIU/mL Normal 0.27-4.20 [facility] Comment on above: Performed By: #### T SH #### [facility] [address] [place], [place] [phone] [employer] Supervisor: Domenica Velázquez MD UA w/Reflex Cultureon 2023 Bilirubin, SemiQt,Ur Negative Normal NEG [facility] Comment on above: Performed By: #### U MIGUELO UAX #### [facility] [address] [place], [facility]83 [employer] Supervisor: Domenica Velázquez MD Blood, Urine Negative Normal NEG [facility] Comment on above: Performed By: #### U MIGUELO UAX #### [facility] [address] [place], [facility]83 [employer] Supervisor: Domenica Velázquez MD Clarity (U) Clear Normal CLEAR [facility] Comment on above: Performed By: #### U MIGUELO, UAX #### [facility] [address] [place], [facility]83 [employer] Supervisor: Domenica Velázquez MD Color (U) Yellow Normal YEL [facility] Comment on above: Performed By: #### U MIGUELO, UAX #### [facility] [address] [place] [address] [employer] Supervisor: Domenica Velázquez MD Glucose Ql (U) 3+ mg/dL Abnormal NEG [facility] Comment on above: Performed By: #### U MICAO, UAX #### [facility] [address] [place], [place] [phone] [employer] Supervisor: Domenica Velázquez MD Ketones Ql (U) Negative Normal NEG [facility] Comment on above: Performed By: #### U MICAO, UAX #### [facility] [address] [place], [place] [phone] [employer] Supervisor: Domenica Velázquez MD Leukocyte esterase Test strip Ql (U) Negative Normal NEG [facility] Comment on above: Performed By: #### U MICAO, UAX #### [address] [place], [place] [address]83 [employer] Supervisor: Domenica Velázquez MD Nitrite,Ur Negative Normal [facility] Comment on above: Performed By: #### U MICAO, UAX #### [facility] [address] [place] [address] [place], [place] 1297883 [employer] Supervisor: Domenica Velázquez MD PH,Ur 6.0 Normal 5.0-9.0 [facility] Comment on above: Performed By: #### U MICAO, UAX #### [address] [place], [place] 5536383 [employer] Supervisor: Domenica Velázquez MD Protein Ql (U) Negative Normal NEG [facility] Comment on above: Performed By: #### U MICAO, UAX #### [facility] [address] [place] [address] [place], [place] 480[address]83 [employer] Supervisor: Domenica Velázquez MD Spec. Sterling,Ur >1.030 High 1.010-1.02 0 [facility] Comment on above: Performed By: #### U MICAO, UAX #### [facility] [address] [place] [address] [place], [place] [phone] [employer] Supervisor: Domenica Velázquez MD Urobilinogen,Ur Normal Normal 0.0-1.0 [facility] Comment on above: Performed By: #### U MICAO, UAX #### [facility] [address] [place] [address] [employer] Supervisor: Domenica Velázquez MD Urinalysis with Reflex to Cu ltureon 01-13-2024 Bilirubin Ql (U) Negative NEGATIVE [facility] Clarity (U) Clear Clear [facility] Color (U) Yellow Yellow [facility] Glucose Test strip (U) [Mass/Vol] 3+ Abnormal NEGATIVE mg/dL [facility] Hemoglobin Auto test strip Ql (U) Negative NEGATIVE [facility] Interpretation and review of laboratory results Abnormal [facility] Ketones (U) [Mass/Vol] Negative NEGATIVE mg/dL [facility] Leukocyte esterase Test strip Ql (U) Negative NEGATIVE [facility] Nitrite Ql (U) Negative NEGATIVE [facility] pH (U) 6.0 [pH] 5.0 - 9.0 [facility] Protein (U) [Mass/Vol] Negative NEGATIVE mg/dL [facility] Specific gravity (U) [Rel density] High 1.010 - 1.020 [facility] Urobilinogen Qn (U) Normal 0.0 - 1. 0 EU/dL [facility] Urinalysis,Microon 4 Bacteria 1+ Abnormal NONE [facility] Comment on above: Performed By: #### U MIGUELO, UAX #### [facility] [address] [place] [address] [employer] Supervisor: Domenica Velázquez MD Epithelial cells LM Ql (Urine sed) 0 TO 2 Normal 0-25 [facility] Comment on above: Performed By: #### U DULCE, UAX #### [facility] [address] [place] [address] [employer] Supervisor: Domenica Velázquez MD Mucus Strands TRACE Abnormal NONE [facility] Comment on above: Performed By: #### U MIGUELO, UAX #### [facility] [address] [place], [place] [phone] [employer] Supervisor: Domenica Velázquez MD Urine RBC's 0 TO 2 Normal 0-2 [facility] Comment on above: Performed By: #### U DULCE, UAX #### [facility] [address] [place], [place] [phone] [employer] Supervisor: Domenica Velázquez MD Urine WBC's None Normal 0-5 [facility] Comment on above: Performed By: #### Donavon CARDONA, UAX #### [facility] [address] [place], [place] [phone] [employer] Supervisor: Domenica Velázquez MD BASIC METABOLIC PANLon 12-20 Anion gap [Moles/Vol] 10 mmol/L Normal 5-15 [facility] Comment on above: Performed By: #### C BCA, BMP, FEPR, 2276-4 #### [facility] ([id number]) [address], [address] [place] [address] Calcium [Mass/Vol] 8.9 mg/dL Normal 8.5-10.5 [facility] Comment on above: Performed By: #### C BCA, BMP, FEPR, 2276-4 #### [facility] ([id number]) [address], [address] [place] [address] Chloride [Moles/Vol] 106 mmol/L Normal 98-109 [facility] Comment on above: Performed By: #### C BCA, BMP, FEPR, 2276-4 #### [facility] ([id number]) [address], [address] [place] [address] CO2 [Moles/Vol] 22 mmol/L Normal 22-32 [facility] Comment on above: Performed By: #### C BCA, BMP, FEPR, 2276-4 #### [facility] ([id number]) [address], [address] [place] [address] Creatinine [Mass/Vol] 0.70 mg/dL Normal 0.40-1.00 [facility] Comment on above: Result Comment: METH OD TRACEABLE TO IDMS STANDARD Performed By: #### C BCA, BMP, FEPR, 2276-4 #### [facility] ([id number]) [address], [address] [place] [address] eGFR (CKD-EPI) NON-RACE DEPENDENT >90 Normal >59 [facility] Comment on above: Result Comment: Reported eGFR is based on the CKD-EPI 2020 equation that does not use a race coefficient. Performed By: #### C BCA, BMP, FEPR, 2276-4 #### [facility] ([id number]) [address], [address] [place] [address] Glucose [Mass/Vol] 89 mg/dL Normal 65-99 [facility] Comment on above: Performed By: #### C BCA, BMP, FEPR, 2276-4 #### [facility] ([id number]) [address], [address] [place] [address] Potassium [Moles/Vol] 4.2 mmol/L Normal 3.5-5.0 [facility] Comment on above: Performed By: #### C BCA, BMP, FEPR, 2276-4 #### [facility] ([id number]) [address], [address] [place] [address] Sodium [Moles/Vol] 138 mmol/L Normal 134-146 [facility] Comment on above: Performed By: #### C BCA, BMP, FEPR, 2276-4 #### [facility] ([id number]) [address], [address] [place] [address] Urea nitrogen [Mass/Vol] 18 mg/dL Normal 5-23 [facility] Comment on above: Performed By: #### C BCA, BMP, FEPR, 2276-4 #### [facility] ([id number]) [address], [address] [place] [address] CBC AND AUTO DIFFon 10-21-20 24 ABSOLUTE BASOPHIL 0.0 X10E9/L Normal 0.0-0.2 [facility] Comment on above: Performed By: #### C BCA, BMP, FEPR, 2275-4 #### [facility] ([id number]) [address], [address] [place] [address] ABSOLUTE NEUTROPHIL 5.7 X10E9/L Normal 1.5-6.6 [facility] Comment on above: Performed By: #### C BCA, BMP, FEPR, 2275- #### [facility] ([id number]) [address], [address] [place] [address] Basophils/100 WBC (Bld) 0.4 % Normal [facility] Comment on above: Performed By: #### C BCA, BMP, FEPR, 2275- #### [facility] ([id number]) [address], [address] [place] [address] Eosinophils (Bld) [#/Vol] 0.1 10*3/uL Normal 0.0-0.4 [facility] Comment on above: Performed By: #### C BCA, BMP, FEPR, 2275- #### [facility] ([id number]) [address], [address] [place] [address] Eosinophils/100 WBC (Bld) 1.2 % Normal [facility] Comment on above: Performed By: #### C BCA, BMP, FEPR, 2275-4 #### [facility] ([id number]) [address] [address] [place] [address] Erythrocyte distribution width (RBC) [Ratio] 14.4 % Normal 11.5-15.0 [facility] Comment on above: Performed By: #### C BCA, BMP, FEPR, 2275- #### [facility] ([id number]) [address] [address] [place] [address] Hematocrit (Bld) [Volume fraction] 37.4 % Normal 35-47 [facility] Comment on above: Performed By: #### C BCA, BMP, FEPR, 6-4 #### [facility] ([id number]) [address] [address] [place] [address] Hemoglobin (Bld) [Mass/Vol] 12.4 g/dL Normal 11.7-15.5 [facility] Comment on above: Performed By: #### C BCA, BMP, FEPR, 2275-4 #### [facility] ([id number]) [address] [address] [place] [address] Lymphocytes (Bld) [#/Vol] 2.4 10*3/uL Normal 1.0-3.5 [facility] Comment on above: Performed By: #### C BCA, BMP, FEPR, 2275-4 #### [facility] ([id number]) [address] [address] [place] [address] Lymphocytes/100 WBC (Bld) 28.1 % Normal [facility] Comment on above: Performed By: #### C BCA, BMP, FEPR, 2275-4 #### [facility] ([id number]) [address] [address] [place] [address] MCH (RBC) [Entitic mass] 28.8 pg Normal 27-34 [facility] Comment on above: Performed By: #### C BCA, BMP, FEPR, 2275-4 #### [facility] ([id number]) [address] [address] [place] [address] MCHC (RBC) [Mass/Vol] 33.1 g/dL Normal 32-36 [facility] Comment on above: Performed By: #### C BCA, BMP, FEPR, 2275-4 #### [facility] ([id number]) [address], [address] [place] [address] MCV (RBC) [Entitic vol] 87 fL Normal 80-100 [facility] Comment on above: Performed By: #### C BCA, BMP, FEPR, 2275-4 #### [facility] ([id number]) [address], [address] [place] [address] Monocytes (Bld) [#/Vol] 0.3 10*3/uL Normal 0-0.9 [facility] Comment on above: Performed By: #### C BCA, BMP, FEPR, 2275- #### [facility] ([id number]) [address], [address] [place] [address] Monocytes/100 WBC (Bld) 3.0 % Normal [facility] Comment on above: Performed By: #### C BCA, BMP, FEPR, 2275- #### [facility] ([id number]) [address], [address] [place] [address] Neutrophils/100 WBC (Bld) 67.3 % Normal [facility] Comment on above: Performed By: #### C BCA, BMP, FEPR, 2275-06 #### [facility] ([id number]) [address], [address] [place] [address] Platelet mean volume (Bld) [Entitic vol] 8.8 fL Normal 7-12 [facility] Comment on above: Performed By: #### C BCA, BMP, FEPR, 2275- #### [facility] ([id number]) [address], [address] [place] [address] Platelets (Bld) [#/Vol] 325 10*3/uL Normal 150-450 [facility] Comment on above: Performed By: #### C BCA, BMP, FEPR, 2275-4 #### [facility] ([id number]) [address] [address] [place] [address] RBC COUNT 4.31 X10E12/L Normal 3.80-5.20 [facility] Comment on above: Performed By: #### C BCA, BMP, FEPR, 6-4 #### [facility] ([id number]) [address] [address] [place] [address] WBC (Bld) [#/Vol] 8.4 10*3/uL Normal 4.0-11.0 [facility] Comment on above: Performed By: #### C BCA, BMP, FEPR, 6-4 #### [facility] ([id number]) [address] [address] [place] [address] FERRITINon 12-21-2023 Ferritin [Mass/Vol] 195 ng/mL Normal 11-307 [facility] Comment on above: Performed By: #### C BCA, CMP, 34482-0, TSHR #### [facility] ([id number]) [address] [address] [place] [address] IRON PROFILEon 12-21-2023 Iron [Mass/Vol] 53 ug/dL Normal 50-170 [facility] Comment on above: Performed By: #### C BCA, BMP, FEPR, 6-4 #### [facility] ([id number]) [address] [address] [place] [address] IRON BINDING 374 ug/dL Normal 250-425 [facility] Comment on above: Performed By: #### C BCA, BMP, FEPR, 2276-4 #### [facility] ([id number]) [address] [address] [place] [address] IRON SATURATION 14 % SATURATION Low 15-50 [facility] Comment on above: Performed By: #### C BCA, BMP, FEPR, 2276-4 #### [facility] ([id number]) [address], [address] [place] [address] CT ABDOMEN PELVIS W IV CONTR Dar [...] significant stool or gas noted. Evidence of zyro-ju-grvpnkmn diverticulosis of proximal sigmoid colon and descending [...] Zoë Nicole MD 10/07/23 Final result Normal [facility] Comp Metabolic Profon 2023 Albumin [Mass/Vol] 4.1 g/dL Normal 3.5-5.2 [facility] Comment on above: Performed By: #### C DP, TROPI, CP, LIP ####[address] [place] [address] Lab Director: Domenica Velázquez MD Albumin/Glob Ratio 1.4 Normal 1.0-2.5 [facility] Comment on above: Performed By: #### C DP, TROPI, CP, LIP ####[facility] [place] [address] lab Director: Domenica Velázquez MD Alkaline Phos 85 U/L Normal 35-104 [facility] Comment on above: Performed By: #### C DP, TROPI, CP, LIP ####[address] [place] [address] lab Director: Domenica Velázquez MD ALT [Catalytic activity/Vol] 12 U/L Normal 5-33 [facility] Comment on above: Performed By: #### C DP, TROPI, CP, LIP ####[address] , [place] [address] lab Director: Domenica Velázquez MD Anion gap [Moles/Vol] 11 mmol/L Normal 9-17 [facility] Comment on above: Performed By: #### C DP, TROPI, CP, LIP ####[address] , [place] [address] lab Director: Domenica Velázquez MD AST [Catalytic activity/Vol] 14 U/L Normal <32 [facility] Comment on above: Performed By: #### C DP, TROPI, CP, LIP ####[address] , [place] 4[address] lab Director: Domenica Velázquez MD Bilirubin [Mass/Vol] 0.2 mg/dL Low 0.3-1.2 [facility] Comment on above: Performed By: #### C DP, TROPI, CP, LIP ####[address] , [place] 323[address]83 lab Director: Domenica Velázquez MD BUN/CRE Ratio 30 High 9-20 [facility] Comment on above: Performed By: #### C DP, TROPI, CP, LIP ####[address] , [place] 9[address] lab Director: Domenica Velázquez MD Calcium [Mass/Vol] 8.8 mg/dL Normal 8.6-10.4 [facility] Comment on above: Performed By: #### C DP, TROPI, CP, LIP ####[address] , [place] [address] lab Director: Domenica Velázquez MD Chloride [Moles/Vol] 103 mmol/L Normal 98-107 [facility] Comment on above: Performed By: #### C DP, TROPI, CP, LIP ####[facility] [place] [address] Lab Director: Domenica Velázquez MD CO2 [Moles/Vol] 25 mmol/L Normal 20-31 [facility] Comment on above: Performed By: #### C DP, TROPI, CP, LIP ####[facility] , [place] [address]83 Lab Director: Domenica Velázquez MD Creatinine [Mass/Vol] 0.6 mg/dL Normal 0.5-0.9 [facility] Comment on above: Performed By: #### C DP, TROPI, CP, LIP ####[address] [place] [address] Lab Director: Domenica Velázquez MD GFR/1.73 sq M.predicted among non-blacks MDRD (S/P/Bld) [Vol rate/Area] mL/min/{1.73_m2} Normal >60 [facility] Comment on above: Result Comment: These results [...] By: #### C DP, TROPI, CP, LIP ####[facility] [place] [address] Lab Director: Domenica Velázquez MD Glucose [Mass/Vol] 92 mg/dL Normal 70-99 [facility] Comment on above: Performed By: #### C DP, TROPI, CP, LIP ####[facility] , [place] 307[address]83 Lab Director: Domenica Velázquez MD Potassium [Moles/Vol] 3.6 mmol/L Low 3.7-5.3 [facility] Comment on above: Performed By: #### C DP, TROPI, CP, LIP ####[address] , [place] 514[address] Lab Director: Domenica Velázquez MD Protein [Mass/Vol] 7.0 g/dL Normal 6.4-8.3 [facility] Comment on above: Performed By: #### C DP, TROPI, CP, LIP ####[address] [place] [address] Lab Director: Domenica Velázquez MD Sodium [Moles/Vol] 139 mmol/L Normal 135-144 [facility] Comment on above: Performed By: #### C DP, TROPI, CP, LIP ####[address] [place] [address] Lab Director: Domenica Velázquez MD Urea nitrogen [Mass/Vol] 18 mg/dL Normal 6-20 [facility] Comment on above: Performed By: #### C DP, TROPI, CP, LIP ####[address] , [place] 04[address]83 Lab Director: Domenica Velázquez MD Lipaseon 10-07-2023 Lipase [Catalytic activity/Vol] 28 U/L Normal 13-60 [facility] Comment on above: Performed By: #### C DP, TROPI, CP, LIP ####[address] [place] [address] Lab Director: Domenica Velázquez MD Troponinon 10-07-2023 Troponin, High Sens <6 Normal 0-14 [facility] Comment on above: Result Comment: High Sensitivity Troponin values cannot be compared with other Troponin methodologies. Performed By: #### C DP, TROPI, CP, LIP ####[address] [place] [address] Lab Director: Domenica Velázquez MD CBC with Diffon 10-06-2023 Abs. Basophil 0.03 k/uL Normal 0.00-0.20 [facility] Comment on above: Performed By: #### C DP, TROPI, CP, LIP ####[address] [place], [place] [phone] Director: Domenica Velázquez MD Abs.Imm.Granulocyte 0.03 k/uL Normal 0.00-0.30 [facility] Comment on above: Performed By: #### C DP, TROPI, CP, LIP ####[address] [place], [place] [address])[phone] Director: Domenica Velázquez MD Abs.Neutrophil (Seg) 6.50 k/uL Normal 1.50-8.10 [facility] Comment on above: Performed By: #### C DP, TROPI, CP, LIP ####[address] [place] [phone])[phone] Director: Domenica Velázquez MD Basophils/100 WBC (Bld) 0 % Normal 0-2 [facility] Comment on above: Performed By: #### C DP, TROPI, CP, LIP ####[address] [place] [phone])[phone] Director: Domenica Velázquez MD Eosinophils (Bld) [#/Vol] 0.08 10*3/uL Normal 0.00-0.44 [facility] Comment on above: Performed By: #### C DP, TROPI, CP, LIP ####[address] [place] [phone])[phone] Director: Domenica Velázquez MD Eosinophils/100 WBC (Bld) 1 % Normal 1-4 [facility] Comment on above: Performed By: #### C DP, TROPI, CP, LIP ####[address] [place] [address] [facility] Director: Domenica Velázquez MD Erythrocyte distribution width (RBC) [Ratio] 13.5 % Normal 11.8-14.4 [facility] Comment on above: Performed By: #### C DP, TROPI, CP, LIP ####[address] [place] [address] Lab Director: Domenica Velázquez MD Hematocrit (Bld) [Volume fraction] 40.1 % Normal 36.3-47.1 [facility] Comment on above: Performed By: #### C DP, TROPI, CP, LIP ####[address] [place] [phone] Lab Director: Domenica Velázquez MD Hemoglobin (Bld) [Mass/Vol] 13.4 g/dL Normal 11.9-15.1 [facility] Comment on above: Performed By: #### C DP, TROPI, CP, LIP ####[address] , [facility]83 Lab Director: Domenica Velázquez MD Immature granulocytes/100 WBC (Bld) 0 % Normal 0 [facility] Comment on above: Performed By: #### C DP, TROPI, CP, LIP ####[address] [place] [address] Lab Director: Domenica Velázquez MD Lymphocytes (Bld) [#/Vol] 2.41 10*3/uL Normal 1.10-3.70 [facility] Comment on above: Performed By: #### C DP, TROPI, CP, LIP ####[address] [place] [address] Lab Director: Domenica Velázquez MD Lymphocytes/100 WBC (Bld) 25 % Normal 24-43 [facility] Comment on above: Performed By: #### C DP, TROPI, CP, LIP ####[address] [facility]88 Lab Director: Domenica Velázquez MD MCH (RBC) [Entitic mass] 28.6 pg Normal 25.2-33.5 [facility] Comment on above: Performed By: #### C DP, TROPI, CP, LIP ####[address] , [facility]83[facility])[phone] Director: Domenica Velázquez MD MCHC (RBC) [Mass/Vol] 33.4 g/dL Normal 28.4-34.8 [facility] Comment on above: Performed By: #### C DP, TROPI, CP, LIP ####[address] , [facility]18([facility])[phone] Director: Domenica Velázquez MD MCV (RBC) [Entitic vol] 85.7 fL Normal 82.6-102.9 [facility] Comment on above: Performed By: #### C DP, TROPI, CP, LIP ####[address] , [place] [address])[phone] Director: Domenica Velázquez MD Monocytes (Bld) [#/Vol] 0.69 10*3/uL Normal 0.10-1.20 [facility] Comment on above: Performed By: #### C DP, TROPI, CP, LIP ####[address] , [place] [address])[phone] Director: Domenica Velázquez MD Monocytes/100 WBC (Bld) 7 % Normal 3-12 [facility] Comment on above: Performed By: #### C DP, TROPI, CP, LIP ####[address] , [facility]83[facility])[phone] Director: Domenica Velázquez MD Neutrophil (Seg) 67 % High 36-65 [facility] Comment on above: Performed By: #### C DP, TROPI, CP, LIP ####[address] [place] [address] Lab Director: Domenica Velázquez MD NRBC Automated 0.0 per 100 WBC Normal 0.0 [facility] Comment on above: Performed By: #### C DP, TROPI, CP, LIP ####[address] , [place] [phone] Lab Director: Domenica Velázquez MD Platelet mean volume (Bld) [Entitic vol] 10.5 fL Normal 8.1-13.5 [facility] Comment on above: Performed By: #### C DP, TROPI, CP, LIP ####[address] , [place] [phone] Director: Domenica Velázquez MD Platelets (Bld) [#/Vol] 292 10*3/uL Normal 138-453 [facility] Comment on above: Performed By: #### C DP, TROPI, CP, LIP ####[address] , [facility]96 Lab Director: Domenica Velázquez MD RBC (Bld) [#/Vol] 4.68 10*6/uL Normal 3.95-5.11 [facility] Comment on above: Performed By: #### C DP, TROPI, CP, LIP ####[address] , [facility]83[facility])[phone] Director: Domenica Velázquez MD WBC (Bld) [#/Vol] 9.7 10*3/uL Normal 3.5-11.3 [facility] Comment on above: Performed By: #### C DP, TROPI, CP, LIP ####[address] , [place] [phone] Lab Director: Domenica Velázquez MD Basic Metabolic Profon 10-04 Anion gap [Moles/Vol] 10 mmol/L Normal 9-17 [facility] Comment on above: Performed By: #### D BASIA, BMP, CDP, TROPI #### [facility] [address] [place], [place] [address] [employer] Supervisor: Domenica Velázquez MD BUN/CRE Ratio 23 High 9-20 [facility] Comment on above: Performed By: #### D BASIA, BMP, CDP, TROPI #### [facility] [address] [place], [place] [phone] [employer] Supervisor: Domenica Velázquez MD Calcium [Mass/Vol] 8.9 mg/dL Normal 8.6-10.4 [facility] Comment on above: Performed By: #### D BASIA, BMP, CDP, TROPI #### [facility] [address] [place], [place] [phone] [employer] Supervisor: Domenica Velázquez MD Chloride [Moles/Vol] 105 mmol/L Normal 98-107 [facility] Comment on above: Performed By: #### D BASIA, BMP, CDP, TROPI #### [facility] [address] [place], [place] [phone] [employer] Supervisor: Domenica Velázquez MD CO2 [Moles/Vol] 26 mmol/L Normal 20-31 [facility] Comment on above: Performed By: #### D BASIA, BMP, CDP, TROPI #### [facility] [address] [place], [place] [phone] [employer] Supervisor: Domenica Velázquez MD Creatinine [Mass/Vol] 0.6 mg/dL Normal 0.5-0.9 [facility] Comment on above: Performed By: #### D BASIA, BMP, CDP, TROPI #### [facility] [address] [place] [address] [employer] Supervisor: Domenica Velázquez MD GFR/1.73 sq M.predicted among non-blacks MDRD (S/P/Bld) [Vol rate/Area] mL/min/{1.73_m2} Normal >60 [facility] Comment on above: Result Comment: These results [...] #### D BASIA, BMP, CDP, TROPI #### [facility] [address] [place] [address] [place], [place] [phone] [employer] Supervisor: Domenica Velázquez MD Glucose [Mass/Vol] 96 mg/dL Normal 70-99 [facility] Comment on above: Performed By: #### D BASIA, BMP, CDP, TROPI #### [address] [place], [place] [address] [employer] Supervisor: Domenica Velázquez MD Potassium [Moles/Vol] 3.8 mmol/L Normal 3.7-5.3 [facility] Comment on above: Performed By: #### D BASIA, BMP, CDP, TROPI #### [address] [place] [address] [employer] Supervisor: Domenica Velázquez MD Sodium [Moles/Vol] 141 mmol/L Normal 135-144 [facility] Comment on above: Performed By: #### Smiley BASIA, BMP, CDP, TROPI #### [facility] [address] [place] [address] [place] [address] [employer] Supervisor: Domenica Velázquez MD Urea nitrogen [Mass/Vol] 14 mg/dL Normal 6-20 [facility] Comment on above: Performed By: #### D BASIA, BMP, CDP, TROPI #### [facility] [address] [place] [address] [place], [place] [phone] [employer] Supervisor: Domenica Velázquez MD CBC with Diffon 10-05-2023 Abs. Basophil <0.03 Normal 0.00-0.20 [facility] Comment on above: Performed By: #### D BASIA, BMP, CDP, TROPI #### [address] [place] [address] [employer] Supervisor: Domenica Velázquez MD Abs.Imm.Granulocyte 0.03 k/uL Normal 0.00-0.30 [facility] Comment on above: Performed By: #### D BASIA, BMP, CDP, TROPI #### [address] [place] [address] [employer] Supervisor: Domenica Velázquez MD Abs.Neutrophil (Seg) 5.10 k/uL Normal 1.50-8.10 [facility] Comment on above: Performed By: #### D BASIA, BMP, CDP, TROPI #### [address] [place] [phone] [employer] Supervisor: Domenica Velázquez MD Basophils/100 WBC (Bld) 0 % Normal 0-2 [facility] Comment on above: Performed By: #### D BASIA, BMP, CDP, TROPI #### [address] [place] [phone] [employer] Supervisor: Domenica Velázquez MD Eosinophils (Bld) [#/Vol] 0.11 10*3/uL Normal 0.00-0.44 [facility] Comment on above: Performed By: #### D BASIA, BMP, CDP, TROPI #### [address] [place], [facility]83 [employer] Supervisor: Domenica Velázquez MD Eosinophils/100 WBC (Bld) 1 % Normal 1-4 [facility] Comment on above: Performed By: #### D ABSIA, BMP, CDP, TROPI #### [address] [place] [address] [employer] Supervisor: Domenica Velázquez MD Erythrocyte distribution width (RBC) [Ratio] 13.5 % Normal 11.8-14.4 [facility] Comment on above: Performed By: #### D BASIA, BMP, CDP, TROPI #### [facility] [address] [place], [place] [phone] [employer] Supervisor: Domenica Velázquez MD Hematocrit (Bld) [Volume fraction] 42.6 % Normal 36.3-47.1 [facility] Comment on above: Performed By: #### D BASIA, BMP, CDP, TROPI #### [facility] [address] [place], [place] [id number] [employer] Supervisor: Domenica Velázquez MD Hemoglobin (Bld) [Mass/Vol] 14.1 g/dL Normal 11.9-15.1 [facility] Comment on above: Performed By: #### D BASIA, BMP, CDP, TROPI #### [address] [place], [place] [id number] [employer] Supervisor: Domenica Velázquez MD Immature granulocytes/100 WBC (Bld) 0 % Normal 0 [facility] Comment on above: Performed By: #### D BASIA, BMP, CDP, TROPI #### [address] [place], [place] [address]83 [employer] Supervisor: Domenica Velázquez MD Lymphocytes (Bld) [#/Vol] 2.42 10*3/uL Normal 1.10-3.70 [facility] Comment on above: Performed By: #### D BASIA, BMP, CDP, TROPI #### [facility] [address] [place] [address] [place] [place], [place] [id number] [employer] Supervisor: Domenica Velázquez MD Lymphocytes/100 WBC (Bld) 30 % Normal 24-43 [facility] Comment on above: Performed By: #### D BASIA, BMP, CDP, TROPI #### [facility] [address] [place], [place] [address] [employer] Supervisor: Domenica Velázquez MD MCH (RBC) [Entitic mass] 28.8 pg Normal 25.2-33.5 [facility] Comment on above: Performed By: #### D BASIA, BMP, CDP, TROPI #### [facility] [address] [place], [place] [id number] [employer] Supervisor: Domenica Velázquez MD MCHC (RBC) [Mass/Vol] 33.1 g/dL Normal 28.4-34.8 [facility] Comment on above: Performed By: #### D BASIA, BMP, CDP, TROPI #### [facility] [address] [place] [address] [employer] Supervisor: Domenica Velázquez MD MCV (RBC) [Entitic vol] 87.1 fL Normal 82.6-102.9 [facility] Comment on above: Performed By: #### D BASIA, BMP, CDP, TROPI #### [address] [place], [facility]83 [employer] Supervisor: Domenica Velázquez MD Monocytes (Bld) [#/Vol] 0.53 10*3/uL Normal 0.10-1.20 [facility] Comment on above: Performed By: #### D BASIA, BMP, CDP, TROPI #### [address] [place], [place] [id number] [employer] Supervisor: Domenica Velázquez MD Monocytes/100 WBC (Bld) 7 % Normal 3-12 [facility] Comment on above: Performed By: #### D BASIA, BMP, CDP, TROPI #### [facility] [address] [place], [place] 3934[address] [employer] Supervisor: Domenica Velázquez MD Neutrophil (Seg) 62 % Normal 36-65 [facility] Comment on above: Performed By: #### D BASIA, BMP, CDP, TROPI #### [facility] [address] [place] [address] [employer] Supervisor: Domenica Velázquez MD NRBC Automated 0.0 per 100 WBC Normal 0.0 [facility] Comment on above: Performed By: #### D BASIA, BMP, CDP, TROPI #### [facility] [address] [place], [facility]83 [employer] Supervisor: Domenica Velázquez MD Platelet mean volume (Bld) [Entitic vol] 10.9 fL Normal 8.1-13.5 [facility] Comment on above: Performed By: #### D BASIA, BMP, CDP, TROPI #### [facility] [address] [place], [facility]83 [employer] Supervisor: Domenica Velázquez MD Platelets (Bld) [#/Vol] 296 10*3/uL Normal 138-453 [facility] Comment on above: Performed By: #### D BASIA, BMP, CDP, TROPI #### [address] [place], [facility]83 [employer] Supervisor: Domenica Velázquez MD RBC (Bld) [#/Vol] 4.89 10*6/uL Normal 3.95-5.11 [facility] Comment on above: Performed By: #### D BASIA, BMP, CDP, TROPI #### [address] [place] [address] [employer] Supervisor: Domenica Velázquez MD WBC (Bld) [#/Vol] 8.2 10*3/uL Normal 3.5-11.3 [facility] Comment on above: Performed By: #### D BASIA, BMP, CDP, TROPI #### [address] [place] [address] [employer] Supervisor: Domenica Velázquez MD CT CHEST PULMONARY [...] Fernando Marcelino MD 10/05/23 Final result Normal [facility] D-Dimer Teston 10-05-2023 D-Dimer Test 0.30 ug/mL FEU Normal 0.00-0.59 [facility] Comment on above: Result Comment: When combined [...] By: #### D BASIA, BMP, CDP, TROPI ####[address] [place] [address] Lab Director: Domenica Velázquez MD Liver Profileon 10-05-2023 Albumin [Mass/Vol] 4.4 g/dL Normal 3.5-5.2 [facility] Comment on above: Performed By: #### L IVP ####[address] , [place] 3013683 Lab Director: Domenica Velázquez MD Albumin/Glob Ratio 1.4 Normal 1.0-2.5 [facility] Comment on above: Performed By: #### L IVP ####[address] [place] [address] Lab Director: Domenica Velázquez MD Alkaline Phos 99 U/L Normal 35-104 [facility] Comment on above: Performed By: #### L IVP ####[address] [place] [address] Lab Director: Domenica Velázquez MD ALT [Catalytic activity/Vol] 13 U/L Normal 5-33 [facility] Comment on above: Performed By: #### L IVP ####[address] [place] [address] Lab Director: Domenica Velázquez MD AST [Catalytic activity/Vol] 16 U/L Normal <32 [facility] Comment on above: Performed By: #### L IVP ####[address] , [place] 4669183 Lab Director: Domenica Velázquez MD Bilirubin [Mass/Vol] 0.2 mg/dL Low 0.3-1.2 [facility] Comment on above: Performed By: #### L IVP ####[address] [place] [address] Lab Director: Domenica Velázquez MD Bilirubin, Indirect Can not be calculated Normal 0.0-1 .0 [facility] Comment on above: Performed By: #### L IVP ####[address] [place] [address] Lab Director: Domenica Velázquez MD Bilirubin.indirect [Mass/Vol] mg/dL Normal <0.3 [facility] Comment on above: Performed By: #### L IVP ####[address] [place] [address] Lab Director: Domenica Velázquez MD Protein [Mass/Vol] 7.5 g/dL Normal 6.4-8.3 [facility] Comment on above: Performed By: #### L IVP ####[address] [place] [address] Lab Director: Domenica Velázquez MD Troponinon 10-05-2023 Troponin, High Sens <6 Normal 0-14 [facility] Comment on above: Result Comment: High Sensitivity Troponin values cannot be compared with other Troponin methodologies. Performed By: #### T ROPI ####[address] , [place] [phone] Director: Domenica Velázquez MD Troponin, High Sens <6 Normal 0-14 [facility] Comment on above: Result Comment: High Sensitivity Troponin values cannot be compared with other Troponin methodologies. Performed By: #### D BASIA, BMP, CDP, TROPI #### [address] [place], [place] [address]83 [employer] Supervisor: Domenica Velázquez MD XR CHEST PORTABLEon [...] Deyanira Lock MD 10/05/23 Final result Normal [facility] CT CERVICAL SPINE WO CONTRAS Ton 04-20-2023 [...] Andi Montoya MD 04/20/23 Final result Normal [facility] CT Cervical spine WO contras ton 04-20-2023 Radiology Study observation (narrative) [facility] CT HEAD WO CONTRASTon 2023 CT [...] Andi Montoya MD 04/20/23 Final result Normal [facility] CT Head WO contraston 2023 Radiology Study observation (narrative) [facility] No Panel Informationon 04-[address] abnormal ity identified in the brain. No acute osseous abnormality identified in the cervical spine. [facility] RIS CONSOLIDATED EXAMINATION: CT OF THE [...] There is no prevertebral soft tissue swelling. [facility] Andi Ruvalcaba MD - 04/20/2023 EXAMINATION: CT [...] osseous abnormality identified in the cervical spine. [facility] No Panel InformationOrdered By: Andi Montoya on 04-20-2023 [facility] Work Phone: Glucose Glucometer (BldC) [M ass/Vol]on 03-27-2023 Glucose [Mass/Vol] 151 mg/dL High 65-99 [facility] Glucose Poct Glucometerson 0 03-18-2023 Commemt1 Glu2: Cleaned Meter Normal [facility] Comment on above: Result Comment: PERF ORMED BY: [place] [address] PATHOLOGIST VERIFICATION REP SHA VALERA M.D. Performed By: #### G LULS #### Point of Care testing , Glucose [Mass/Vol] 87 mg/dL Normal [facility] Comment on above: Result Comment: [place] Glucose Reference Range is dependent on time and content of last meal. Glucose of more than 200 mg/dL in a nonstressed, ambulatory subject supports the diagnosis of Diabetes Mellitus. Performed By: #### G LULS #### Point of Care testing , HCG,Urineon 03-18-2023 Beta HCG ( test) Ql (U) Negative Normal [facility] Comment on above: Result Comment: PERF ORMED BY: [place] [address] PATHOLOGIST VERIFICATION REP SHA VALERA M.D. Performed By: #### U HCG #### [address] CBC AND AUTO DIFFon 03-16-19 24 ABSOLUTE BASOPHIL 0.0 X10E9/L Normal 0.0-0.2 [facility] Comment on above: Performed By: #### C BCA, CMP, 13539-9, TSHR #### [facility] ([id number]) [address] [place] [address] ABSOLUTE NEUTROPHIL 7.7 X10E9/L High 1.5-6.6 [facility] Comment on above: Performed By: #### Terrell BURGESS CMP, 88000-5, TSHR #### [facility] ([id number]) [address], [address] [place] [address] Basophils/100 WBC (Bld) 0.3 % Normal [facility] Comment on above: Performed By: #### Terrell BURGESS CMP, 78926-6, TSHR #### [facility] ([id number]) [address], [address] [place] [address] Eosinophils (Bld) [#/Vol] 0.1 10*3/uL Normal 0.0-0.4 [facility] Comment on above: Performed By: #### Terrell BURGESS CMP, 31223-4, TSHR #### [facility] ([id number]) [address], [address] [place] [address] Eosinophils/100 WBC (Bld) 1.1 % Normal [facility] Comment on above: Performed By: #### Terrell BURGESS CMP, 85289-4, TSHR #### [facility] ([id number]) [address], [address] [place] [address] Erythrocyte distribution width (RBC) [Ratio] 14.6 % Normal 11.5-15.0 [facility] Comment on above: Performed By: #### Terrell BURGESS CMP, 50198-9, TSHR #### [facility] ([id number]) [address], [address] [place] [address] Hematocrit (Bld) [Volume fraction] 45.7 % Normal 35-47 [facility] Comment on above: Performed By: #### Terrell BURGESS CMP, 48960-1, TSHR #### [facility] ([id number]) [address], [address] [place] [address] Hemoglobin (Bld) [Mass/Vol] 15.0 g/dL Normal 11.7-15.5 [facility] Comment on above: Performed By: #### C JAHAIRA BURGESS, 19021-0, TSHR #### [facility] ([id number]) [address], [address] [place] [address] Lymphocytes (Bld) [#/Vol] 2.4 10*3/uL Normal 1.0-3.5 [facility] Comment on above: Performed By: #### C ADITYA, CMP, 24978-9, TSHR #### [facility] ([id number]) [address], [facility] [address] [place] [address] Lymphocytes/100 WBC (Bld) 22.1 % Normal [facility] Comment on above: Performed By: #### Terrell BURGESS CMP, 98330-7, TSHR #### [facility] ([id number]) [address], [address] [place] [address] MCH (RBC) [Entitic mass] 29.0 pg Normal 27-34 [facility] Comment on above: Performed By: #### Terrell BURGESS CMP, 21223-2, TSHR #### [facility] ([id number]) [address], [address] [place] [address] MCHC (RBC) [Mass/Vol] 32.8 g/dL Normal 32-36 [facility] Comment on above: Performed By: #### Terrell BURGESS CMP, 95618-4, TSHR #### [facility] ([id number]) [address], [address] [place] [address] MCV (RBC) [Entitic vol] 88 fL Normal 80-100 [facility] Comment on above: Performed By: #### Terrell BURGESS, CMP, 00651-5, TSHR #### [facility] ([id number]) [address], [address] [place] [address] Monocytes (Bld) [#/Vol] 0.6 10*3/uL Normal 0-0.9 [facility] Comment on above: Performed By: #### C JAHAIRA BURGESS, 44970-5, TSHR #### [facility] ([id number]) [address], [address] [place] [address] Monocytes/100 WBC (Bld) 5.7 % Normal [facility] Comment on above: Performed By: #### Terrell BURGESS CMP, 79285-7, TSHR #### [facility] ([id number]) [address], [address] [place] [address] Neutrophils/100 WBC (Bld) 70.8 % Normal [facility] Comment on above: Performed By: #### Terrell BURGESS CMP, 39060-8, TSHR #### [facility] ([id number]) [address], [address] [place] [address] Platelet mean volume (Bld) [Entitic vol] 9.7 fL Normal 7-12 [facility] Comment on above: Performed By: #### Terrell BURGESS CMP, 74896-4, TSHR #### [facility] ([id number]) [address], [address] [place] [address] Platelets (Bld) [#/Vol] 303 10*3/uL Normal 150-450 [facility] Comment on above: Performed By: #### Terrell BURGESS CMP, 30632-2, TSHR #### [facility] ([id number]) [address], [address] [place] [address] RBC COUNT 5.17 X10E12/L Normal 3.80-5.20 [facility] Comment on above: Performed By: #### Terrell BURGESS CMP, 31141-3, TSHR #### [facility] ([id number]) [address], [address] [place] [address] WBC (Bld) [#/Vol] 10.9 10*3/uL Normal 4.0-11.0 [facility] Comment on above: Performed By: #### C BCA, CMP, 68666-4, TSHR #### [facility] ([id number]) [address], [address] [place] [address] COMPREHENSIVE METABOLIC PANE Dirk 03-16-2023 Albumin [Mass/Vol] 4.7 g/dL Normal 3.2-5.3 [facility] Comment on above: Performed By: #### C BCA, CMP, 72897-0, TSHR #### [facility] ([id number]) [address], [address] [place] [address] ALP [Catalytic activity/Vol] 74 U/L Normal 39-130 [facility] Comment on above: Performed By: #### C BCA, CMP, 62468-6, TSHR #### [facility] ([id number]) [address], [address] [place] [address] ALT [Catalytic activity/Vol] 22 U/L Normal 0-31 [facility] Comment on above: Performed By: #### C BCA, CMP, 04525-4, TSHR #### [facility] ([id number]) [address], [address] [place] [address] Anion gap [Moles/Vol] 12 mmol/L Normal 5-15 [facility] Comment on above: Performed By: #### C BCA, CMP, 90361-9, TSHR #### [facility] ([id number]) [address], [address] [place] [address] AST [Catalytic activity/Vol] 20 U/L Normal 0-41 [facility] Comment on above: Performed By: #### C BCA, CMP, 28224-8, TSHR #### [facility] ([id number]) [address], [address] [place] [address] Bilirubin [Mass/Vol] 0.5 mg/dL Normal 0.3-1.2 [facility] Comment on above: Performed By: #### C BCA, CMP, 99503-1, TSHR #### [facility] ([id number]) [address], [address] [place] [address] Calcium [Mass/Vol] 9.9 mg/dL Normal 8.5-10.5 [facility] Comment on above: Performed By: #### C BCA, CMP, 04445-2, TSHR #### [facility] ([id number]) [address], [address] [place] [address] Chloride [Moles/Vol] 105 mmol/L Normal 98-109 [facility] Comment on above: Performed By: #### C BCA, CMP, 99835-5, TSHR #### [facility] ([id number]) [address], [address] [place] [address] CO2 [Moles/Vol] 25 mmol/L Normal 22-32 [facility] Comment on above: Performed By: #### C BCA, CMP, 74841-6, TSHR #### [facility] ([id number]) [address], [address] [place] [address] Creatinine [Mass/Vol] 0.74 mg/dL Normal 0.40-1.00 [facility] Comment on above: Result Comment: METH OD TRACEABLE TO IDMS STANDARD Performed By: #### C BCA, CMP, 34489-0, TSHR #### [facility] ([id number]) [address], [address] [place] [address] eGFR (CKD-EPI) NON-RACE DEPENDENT >90 Normal >59 [facility] Comment on above: Result Comment: Reported eGFR is based on the CKD-EPI 2020 equation that does not use a race coefficient. Performed By: #### C BCA, CMP, 27012-0, TSHR #### [facility] ([id number]) [address], [address] [place] [address] Glucose [Mass/Vol] 143 mg/dL High 65-99 [facility] Comment on above: Performed By: #### C JAHAIRA BURGESS, 53825-2, TSHR #### [facility] ([id number]) [address], [address] [place] [address] Potassium [Moles/Vol] 3.8 mmol/L Normal 3.5-5.0 [facility] Comment on above: Performed By: #### C ADITYA CMP, 00210-8, TSHR #### [facility] ([id number]) [address], [address] [place] [address] Protein [Mass/Vol] 7.8 g/dL Normal 6.0-8.0 [facility] Comment on above: Performed By: #### C JAHAIRA BURGESS, 31874-6, TSHR #### [facility] ([id number]) [address], [address] [place] [address] Sodium [Moles/Vol] 142 mmol/L Normal 134-146 [facility] Comment on above: Performed By: #### C JAHAIRA BURGESS, 55820-2, TSHR #### [facility] ([id number]) [address], [address] [place] [address] Urea nitrogen [Mass/Vol] 17 mg/dL Normal 5-23 [facility] Comment on above: Performed By: #### C ADITYA CMP, 25742-7, TSHR #### [facility] ([id number]) [address], [address] [place] [address] HGB A1C (GLYCO-HGB)on 2023 Glucose [Mass/Vol] 117 mg/dL Normal [facility] Comment on above: Performed By: #### C ADITYA, CMP, 97272-9, TSHR #### [facility] ([id number]) [address], [address] [place] [address] HbA1c (Bld) [Mass fraction] 5.7 % High 4.4-5.6 [facility] Comment on above: Result Comment: NOTE ADA Guidelines Result HgbA1c Normal : less than 5.7 % Prediabetes : 5.7 % to 6.4 % Diabetes : > 6.4 % Use with caution in patients with abnormal hemoglobin variants as the half-life of red blood cells and in vivo glycation rates are affected. Performed By: #### Terrell BURGESS, CMP, 30670-5, TSHR #### [facility] ([id number]) [address], [address] [place] [address] Lipid 1996 panelon 4 Cholesterol [Mass/Vol] 132 mg/dL Low 150-200 [facility] Comment on above: Performed By: ###Christopher Tejada BCA, CMP, 40140-6, TSHR #### [facility] ([id number]) [address], [address] [place] [address] Cholesterol in HDL [Mass/Vol] 58 mg/dL Normal >39 [facility] Comment on above: Result Comment: HDL <40 mg/dL - High Risk HDL > or = 40mg/dL- Desirable HDL >60 mg/dL - Negative Risk Performed By: #### Terrell BURGESS, CMP, 47577-2, TSHR #### [facility] ([id number]) [address], [address] [place] [address] Cholesterol in LDL [Mass/Vol] 51 mg/dL Normal <130 [facility] Comment on above: Result Comment: LDL <100 mg/dL - Desirable LDL >160 mg/dL - High Risk Performed By: #### C BCA, CMP, 19206-2, TSHR #### [facility] ([id number]) [address], [address] [place] [address] Cholesterol in VLDL [Mass/Vol] 23 mg/dL Normal 0-30 [facility] Comment on above: Performed By: #### C BCA, CMP, 93558-2, TSHR #### [facility] ([id number]) [address], [address] [place] [address] CHOLESTEROL:HDL 2.3 Normal 1.0-5.0 [facility] Comment on above: Performed By: #### C BCA, CMP, 22987-0, TSHR #### [facility] ([id number]) [address], [address] [place] [address] Triglyceride [Mass/Vol] 114 mg/dL Normal 27-150 [facility] Comment on above: Performed By: #### C BCA, CMP, 64081-9, TSHR #### [facility] ([id number]) [address], [address] [place] [address] MAMM SCREENING BILATERAL W C public health advisor 03-16-2023 MAMM SCREENING BILATERAL W CAD [...] 3:25 PM 0A a ADDITIONAL I Normal [facility] TSH WITH REFLEXon 03-16-2023 TSH 0.55 uIU/mL Normal 0.49-4.67 [facility] Comment on above: Performed By: #### C BCA, CMP, 17667-3, TSHR #### [facility] ([id number]) [address] [place] [address] PT - Assessmentson 3 PT - Assessments [id number]#1.00CD:12 [address] [facility] ST - Assessmentson 3 ST - Assessments [id number]#1.00CD:127 Normal [facility] Consenton 09-25-2022 Consent [id number]#1.00CD:127 [facility] Outside Recordson 2022 Outside Records [id number]#1.00CD:127 Normal [facility] ST - Orderson 2022 ST - Orders [id number]#1.00CD:127 Normal [facility] ST - Orders [id number]#1.00CD:127 Normal [facility] ST - Otheron 2022 ST - Other [id number]#1.00CD:127 Normal [facility] PAP ACOG PANEL 2: 30 to 65on 05-27-2022 . . Normal [facility] Comment on above: Result Comment: Perf ormed at: WB Performed By: #### 4 [id number] #### [facility] [address] [address] [address] Do Aguilar Age Gdln ACOG Testing 30-65 Normal [facility] Comment on above: Performed By: #### 4 [id number] #### [facility] [address] [address] [address] Do Aguilar DIAGNOSIS: Comment Normal [facility] Comment on above: Result Comment: NEGA TIVE FOR INTRAEPITHELIAL LESION OR MALIGNANCY. Performed at: WB Performed By: #### 4 [id number] #### [facility] [address] [place] [address] Dr. Do Aguilar HPV Aptima Negative Normal Negative [facility] Comment on above: Result Comment: This nucleic acid amplification test detects fourteen high-risk HPV types (16,18,31,33,35,39,45,51,52,56,58,59,66,68) without differentiation. Performed at: =G Performed By: #### 4 [id number] #### [facility] [address] [place] [address] Dr. Do Aguilar HPV Genotype Reflex Comment Normal [facility] Comment on above: Result Comment: Crit eria not met, HPV Genotype not performed. Performed at: WB Performed By: #### 4 [id number] #### [facility] [address] [place] [address] Dr. Do Aguilar Methodology: Comment Normal [facility] Comment on above: Result Comment: This liquid based ThinPrep(R) pap test was screened with the use of an image guided system. Performed at: WB Performed By: #### 4 [id number] #### [facility] [address] [place] [address] Dr. Do Aguilar Note: Comment Normal [facility] Comment on above: Result Comment: The Pap smear is a screening test designed to aid in the detection of premalignant and malignant conditions of the uterine cervix. It is not a diagnostic procedure and should not be used as the sole means of detecting cervical cancer. Both false-positive and false-negative reports do occur. . Performed at: WB Performed By: #### [id number] #### [facility] [address] [address] [address] Do Aguilar Performed by: Comment Normal [facility] Comment on above: Result Comment: Melissa Ramachandran, Thread Grinder Tool (ASCP) Performed at: WB Performed By: #### [id number] #### [facility] [address] [address] [address] Do Aguilar Specimen adequacy: Comment Normal [facility] Comment on above: Result Comment: Sati sfactory for evaluation. Endocervical and/or squamous metaplastic cells (endocervical component) are present. Performed at: WB Performed By: #### [id number] #### [facility] [address] [place] [address] Dr. Do Aguilar HEPATITIS C AB CASCADE TO QU ANT PCR GENOon 02-18-2022 HCV AB <0.1 Normal 0.0-0.9 [facility] Comment on above: Performed By: #### H EPCASC #### [facility] [address] [place] [address] Dr. Do Aguilar Interpretation: Comment Normal [facility] Comment on above: Result Comment: Nega tive Not infected with HCV, unless recent infection is suspected or other evidence exists to indicate HCV infection. Performed By: #### H EPCASC #### [facility] [address] [place] [address] Dr. Do Aguilar LIVER PROFILEon 02-17-2022 Albumin [Mass/Vol] 3.6 g/dL Normal 3.4-5.0 [facility] Comment on above: Performed By: #### L IVER #### [facility] [address] [place] [address] Dr. Do Aguilar Albumin/Globulin [Mass ratio] 0.9 {ratio} Normal [facility] Comment on above: Performed By: #### L IVER #### [facility] [address] [place] [address] Dr. Do Aguilar ALP [Catalytic activity/Vol] 79 U/L Normal 46-116 [facility] Comment on above: Performed By: #### L IVER #### [facility] [address] [address] [address] Do Aguilar ALT [Catalytic activity/Vol] 51 U/L Normal 14-59 [facility] Comment on above: Performed By: #### L IVER #### [facility] [address] [address] [address] Do Aguilar AST [Catalytic activity/Vol] 33 U/L Normal 15-37 [facility] Comment on above: Performed By: #### L IVER #### [facility] [address] [address] [address] Do Aguilar BILI, CONJUGATED 0.1 mg/dL Normal 0.0-0.2 [facility] Comment on above: Performed By: #### L IVER #### [facility] [address] [place] [address] Dr. Do Aguilar Bilirubin [Mass/Vol] 0.3 mg/dL Normal 0.2-1.0 [facility] Comment on above: Performed By: #### L IVER #### [facility] [address] [place] [address] Dr. Do Aguilar Globulin (S) [Mass/Vol] 4.2 g/dL Normal [facility] Comment on above: Performed By: #### L IVER #### [facility] [address] [place] [address] Dr. Do Aguilar Protein [Mass/Vol] 7.8 g/dL Normal 6.4-8.2 [facility] Comment on above: Performed By: #### L IVER #### [facility] [address] [address] [address] Do Aguilar TSHon 02-17-2022 TSH 0.457 uIU/mL Normal 0.358-3.74 0 [facility] Comment on above: Performed By: #### T SH #### [facility] [address] [address] [address] Do Aguilar VITAMIN B12on 02-17-2022 Cobalamin (Vitamin B12) [Mass/Vol] 1864.0 pg/mL Critically high 193.0-986. 0 [facility] Comment on above: Performed By: #### V ITB12 #### [facility] [address] [address] [address] Do Aguilar History and Physicalon 12-04 History and Physical [id number]#1.00[facility] Operative Report - Surgeon/P godwin 12-04-2016 Operative Report - Surgeon/Physician [id number] Coding Summaryon 11-26-2016 Coding Summary CODING DATE: 017 [facility] STATUS: Home PAYOR: Medicaid HMO ADMIT DX: REASON FOR VISIT DX: R10.13 Epigastric pain R10.11 Right upper quadrant pain FINAL DX: PRINCIPAL: K29.70 Gastritis, unspecified, without bleeding SECONDARY: PROCEDURES DOCTOR NAME DATE 36711 EsophagogastroduodenTed mena Richard MD 11/21/2016 flexible, transoral; with biopsy, single or multiple NOTE: The code number assigned matches the documented diagnosis and / or procedure in the patient's chart. However, the narrative phrase printed from the coding software may appear abbreviated, or result in slightly different terminology. Coded By: Rosalba Laureano Date Saved: 11/26/2016 01:09 pm [facility] Consent Formson 11-24-2016 Consent Forms [id number]#[address] [place] [address] Intraoperative Noteon 2016 Intraoperative Note [id number]#[address] [place] [address] Intraoperative Note [id number] Operative Report - Surgeon/P godwin 11-24-2016 [...] in two weeks.Juan Ramon Jean M.D.JOB #: [id number]: 11/21/2016T: 11/21/2016[Electronically Signed on: 12/03/2016 07:09 EDT] Juan Ramon Jean MD Generated Domain User for [id number][Verified on: 12/03/2016 07:09 EDT] Juan Ramon Jean MD[Transcribed on: 11/21/2016 11:37 EDT]GDU Normal [facility] Telemetry Stripson 7 Telemetry Strips [id number]#1.00OTGTIFF [facility] Telemetry Strips [id number]#1.00OTGTIFF [facility] H. Pylori Gastricon 11-22-19 17 H. Pylori Rico Int Ctrl Pass [facility] Comment on above: Order Comment: H. (A NTRUM) Result Comment: Pass Performed By: #### 2 [id number] ####[facility] (DEFAULT)[address] [place] [address] H. Pylori Gastric Negative Normal [facility] Comment on above: Order Comment: H. (A NTRUM) Result Comment: Nega tive Performed By: #### 2 [id number] ####[facility] (DEFAULT)[address] [place] [address] Inpatient Clinical Summaryon 11-21-2016 Inpatient Clinical Summary [facility] SURGERYClinical Discharge SummaryPERSON INFORMATIONName ROSE KARMA BANEGAS Age 36 Years 80Sex FEMALE Language Gambian PCP HAZEL, DAVIDMarital Status [facility] Service Ambulatory SurgeryMRN [id number] Acct# Arrival 11/21/16 07:22:21Visit Reason EGD - EPIGASTRIC ABDOMINAL PAIN Acuity LOS 013 23:19Address:[address] [facility] [id number]:PROVIDER INFORMATIONVITALS INFORMATIONVital Sign Triage LatestTemp OralTemp Temporal 36.4 DegC 36.4 DegCTemp IntravascularTemp AxillaryTemp Gxconr53 Sat 100 % 97 %Respiratory Rate 16 [...] INFORMATIONInstructions:Fo llow up:With: Address: When:Juan Ramon Jean [address] [place] [id number] [facility] (1) Within 2 to 4 weeksComments:Call for follow up appointmentWith: Address: When:DOMENICA OLIVA [address] [place] [phone] Business (1)DIAGNOSISAcute gastritisComment:PHYS DOC NOTES Normal [facility] Inpatient Patient Summaryon 11-21-2016 Inpatient Patient Summary [address] [address] Patient Discharge InstructionsName: KARMA SRDOB: [birth year] Address: [address] [place] [address] Care Provider:Name: DOMENICA OLIVAPhone: Discharge Diagnosis: Acute [...] or business decisions or sign any legal documentsRiverside Methodist Hospital would like to thank you for allowing us to assist you with your healthcare needs. The following includes patient education materials and information regarding your injury/illness.KARMA SR has been given the following list of follow-up instructions, prescriptions, and patient education materials:Follow-up InstructionsWith: Address: When:Juan Ramon Jean [address] [place] [address] [facility] (1) Within 2 to 4 weeksComments:Call for follow up appointmentWith: Address: When:DOMENICA OLIVA [address] [place] [phone] Business (1)MedicationsDuring the course of your visit, [...] the Answerwww.cdc.gov/getsmart GET SMART Know When Antibiotics [facility] ServicesGe[facility] Hospitalers for Disease Control and Prevention October 2013 [facility]-21[facility]2016 [facility] Endo Intraoperative Record [facility] Endo Intra-Op Record Summary Primary Physician: Juan Ramon Jean MD Finalized Date/Time: 11/21/16 08:37:38 Pt. Name: KARMA SR/Sex: 1980 FEMALE Med Rec #: [id number] Physician: Juan Ramon Jean MD Financial #: [id number] Pt. Type: D Room/Bed: / Admit/Disch: 11/21/16 [...] Jane RN Role Performed Surgeon - Primary Fiberglass Insulation Installer Fiberglass Insulation Installer Time In 11/21/16 08:06:00 11/21/16 08:06:00 11/21/16 [...] 11/21/16 08:37 DBARONE Modify Pick List Normal [facility] MAGR Endo Postoperative Benjamin rdon 11-21-2016 [facility] Endo Postoperative Record [facility] Endo Phase II Record Summary Primary Physician: Juan Ramon Jean MD Finalized Date/Time: 11/21/16 10:02:07 Pt. Name: KARMA SR /Sex: 1980 FEMALE Med Rec #: [id number] Physician: Juan Ramon Jean MD Financial #: [id number] Pt. Type: D Room/Bed: / Admit/Disch: 11/21/16 [...] Signed By: Cammy Barroso RN 11/21/16 10:02 [facility] MAGR Endo Preoperative Recor don 11-21-2016 [facility]o Preoperative Record [facility] Endo Pre-Op Record Summary Primary Physician: Juan Ramon Jean MD Finalized Date/Time: 11/21/16 08:27:58 Pt. Name: KARMA SR Mary/Sex: 1980 FEMALE Med Rec #: [id number] Physician: Juan Ramon Jean MD Financial #: [id number] Pt. Type: D Room/Bed: / Admit/Disch: 11/21/16 [...] Signed By: Cammy Barroso RN 11/21/16 08:27 [facility] Test Urine 1on U Preg Negative [facility] Comment on above: Result Comment: Nega tive Performed By: #### 3 [id number] ####[facility] (DEFAULT)[address] [place] [address] U Preg Internal Control Pass [facility] Comment on above: Result Comment: Pass Performed By: #### 3 [id number] ####[facility] (DEFAULT)[address] [place] [address] Vital Signs Date Time Vital Sign Value Performing Clinician Facility 01-21-2024 09:35-0500 Body height 160.02 cm Rory Driver [employer] Work Phone: [facility] 01-21-2024 09:35-0500 Body mass index (BMI) [Ratio] 38.8 kg/m2 Rory Driver [employer] Work Phone: [facility] 01-21-2024 09:35-0500 Body weight 99.4 kg Rory Driver [employer] Work Phone: [facility] 01-13-2024 17:30-0500 Diastolic blood pressure 71 mm[Hg] Lisette Junior DO Work Phone: [employer] 01-13-2024 17:30-0500 Heart rate 95 /min Lisette Junior DO Work Phone: [employer] 01-13-2024 17:30-0500 SaO2% (BldA) [Mass fraction] 99 % Lisette Junior DO Work Phone: [employer] 01-13-2024 17:30-0500 Systolic blood pressure 131 mm[Hg] Lisette Jnuior DO Work Phone: [employer] 01-13-2024 15:30-0500 Respiratory rate 16 /min Lisette Junior DO Work Phone: [employer] 01-13-2024 14:24-0500 Body height 160 cm Lisette Junior DO Work Phone: [employer] 01-13-2024 14:24-0500 Body mass index (BMI) [Ratio] 37.55 kg/m2 Lisette Junior DO Work Phone: [employer] 01-13-2024 14:24-0500 Body temperature 98.1 [degF] Lisette Junior DO Work Phone: [employer] 01-13-2024 14:24-0500 Body weight 96.16 kg Lisette Junior DO Work Phone: [place] 11-30-2023 11:10-0400 Body height 160 cm Brittany Spencerr [employer] Work Phone: [facility] 11-30-2023 11:10-0400 Body mass index (BMI) [Ratio] 35.96 kg/m2 Brittany Gillmor [employer] Work Phone: [facility] 11-30-2023 11:10-0400 Body weight 92.08 kg Brittany Gillmor [employer] Work Phone: [facility] 11-30-2023 10:26-0400 Diastolic blood pressure 70 mm[Hg] Brittany Gottimor [employer] Work Phone: [facility] 11-30-2023 10:26-0400 Heart rate 90 /min Brittany Spencerr [employer]UL[employer] Work Phone: [facility] 11-30-2023 10:26-0400 SaO2% (BldA) [Mass fraction] 96 % Brittany Gottimor [employer]UL[employer]TER Work Phone: [facility] 11-30-2023 10:26-0400 Systolic blood pressure 118 mm[Hg] Brittany Gottimor [employer]ULLET SLITTER Work Phone: [facility] 10-08-2023 09:17-0400 Body height 160 cm Dwayne Khoury MD Work Phone: [facility] 10-08-2023 09:17-0400 Body mass index (BMI) [Ratio] 36.36 kg/m2 Dwayne Khoury MD Work Phone: [facility] 10-08-2023 09:17-0400 Body weight 93.1 kg Dwayne Khoury MD Work Phone: [facility] 10-08-2023 09:17-0400 Diastolic blood pressure 86 mm[Hg] Dwayne Khoury MD Work Phone: [facility] 10-08-2023 09:17-0400 Heart rate 102 /min Dwayne Khoury MD Work Phone: [facility] 10-08-2023 09:17-0400 Respiratory rate 16 /min Dwayne Khoury MD Work Phone: [facility] 10-08-2023 09:17-0400 Systolic blood pressure 145 mm[Hg] Dwayne Khoury MD Work Phone: [facility] 06-02-2023 14:32-0400 Body mass index (BMI) [Ratio] 36.67 kg/m2 Deepika Robledo MD Work Phone: [facility] 06-02-2023 14:32-0400 Body weight 93.89 kg Deepika Robledo MD Work Phone: [facility] 06-02-2023 14:32-0400 Diastolic blood pressure 102 mm[Hg] Deepika Robledo MD Work Phone: [facility] 06-02-2023 14:32-0400 Heart rate 83 /min Deepika Robledo MD Work Phone: [facility] 06-02-2023 14:32-0400 Systolic blood pressure 136 mm[Hg] Deepika Robledo MD Work Phone: [facility] 05-21-2023 11:22-0400 Body height 160.02 cm [facility] 05-21-2023 11:22-0400 Body mass index (BMI) [Ratio] 36.5 kg/m2 [facility] 05-21-2023 11:22-0400 Body weight 93.44 kg [facility] 05-21-2023 10:39-0400 Body height 160.02 cm [facility] 05-21-2023 10:39-0400 Body mass index (BMI) [Ratio] 36.5 kg/m2 [facility] 05-21-2023 10:39-0400 Body weight 93.49 kg [facility] 05-21-2023 10:39-0400 Diastolic blood pressure 77 mm[Hg] [facility] 05-21-2023 10:39-0400 Heart rate 105 /min [facility] 05-21-2023 10:39-0400 Respiratory rate 18 /min [facility] 05-21-2023 10:39-0400 SaO2% (BldA) [Mass fraction] 95 % [facility] 05-21-2023 10:39-0400 Systolic blood pressure 114 mm[Hg] [facility] 04-28-2023 11:21-0500 Body height 160 cm Gaurav Sellers PA Work Phone: [facility] 04-28-2023 11:21-0500 Body mass index (BMI) [Ratio] 36.14 kg/m2 Gaurav Sellers PA Work Phone: [facility] 04-28-2023 11:21-0500 Body weight 92.53 kg Gaurav Sellers PA Work Phone: [facility] 04-28-2023 11:21-0500 Diastolic blood pressure 82 mm[Hg] Gaurav Sellers PA Work Phone: [facility] 04-28-2023 11:21-0500 Heart rate 87 /min Gaurav Mercerenberg PA Work Phone: [facility] 04-28-2023 11:21-0500 Respiratory rate 16 /min Gaurav Sellers PA Work Phone: [facility] 04-28-2023 11:21-0500 SaO2% (BldA) [Mass fraction] 97 % Gaurav Sellers PA Work Phone: [facility] [employer] [facility] 04-28-2023 11:21-0500 Systolic blood pressure 122 mm[Hg] Gaurav Sellers PA Work Phone: [facility] 04-20-2023 12:41-0500 Body mass index (BMI) [Ratio] 36.49 kg/m2 Shawna Rumlincolng DO Work Phone: [facility] 04-20-2023 12:41-0500 Body weight 93.44 kg Shawna Rumschlag DO Work Phone: [facility] [employer] 04-20-2023 12:41-0500 Diastolic blood pressure 76 mm[Hg] Shawna Rumschlag DO Work Phone: [facility] 04-20-2023 12:41-0500 Heart rate 83 /min Shawna Rumschlag DO Work Phone: [facility] [employer] 04-20-2023 12:41-0500 Respiratory rate 16 /min Shawna Rumschlag DO Work Phone: [facility] [employer] 04-20-2023 12:41-0500 SaO2% (BldA) [Mass fraction] 98 % Shawna Rumschlag DO Work Phone: [facility] [employer] 04-20-2023 12:41-0500 Systolic blood pressure 129 mm[Hg] Shawna Rumschlag DO Work Phone: [facility] [employer] 04-20-2023 12:39-0500 Body temperature 97.3 [degF] Shawna Rumschlag DO Work Phone: [facility] 03-18-2023 11:30-0500 Diastolic blood pressure 84 mm[Hg] MD Yo Blank Work Phone: [facility] 03-18-2023 11:30-0500 Heart rate 95 /min MD Yo Blank Work Phone: [facility] 03-18-2023 11:30-0500 Respiratory rate 16 /min MD Yo Blank Work Phone: [facility] 03-18-2023 11:30-0500 SaO2% (BldA) [Mass fraction] 99 % MD Yo Blank Work Phone: [facility] 03-18-2023 11:30-0500 Systolic blood pressure 123 mm[Hg] MD Yo Blank Work Phone: [facility] 03-05-2023 09:15-0500 Body height 160.02 cm Gayathri Scally Other [employer] Other 03-05-2023 09:15-0500 Body mass index (BMI) [Ratio] 37.57 kg/m2 Gayathri Scally Other [employer] Other 03-05-2023 09:15-0500 Body weight 96.21 kg Gayathri Scally Other [employer] Other 03-05-2023 09:15-0500 Diastolic blood pressure 89 mm[Hg] Gayathri Scally Other [employer] Other 03-05-2023 09:15-0500 Respiratory rate 18 /min Gayathri Scally Other [employer] Other 03-05-2023 09:15-0500 SaO2% (BldA) [Mass fraction] 96 % Gayathri Scally Other [employer] Other 03-05-2023 09:15-0500 Systolic blood pressure 122 mm[Hg] Gayathri Scally Other [employer] Other 03-02-2023 19:24-0500 Body height 160 cm Sil Sullivan DO Work Phone: [employer] 03-02-2023 19:24-0500 Body mass index (BMI) [Ratio] 36.31 kg/m2 Sil Sullivan DO Work Phone: [employer] 03-02-2023 19:24-0500 Body temperature 98.29 [degF] Sil Sullivan DO Work Phone: [employer] 03-02-2023 19:24-0500 Body weight 92.99 kg Sil Sullivan DO Work Phone: [employer] 03-02-2023 19:24-0500 Diastolic blood pressure 98 mm[Hg] Sil Sullivan DO Work Phone: [employer] 03-02-2023 19:24-0500 Heart rate 82 /min Sil Sullivan DO Work Phone: [employer] 03-02-2023 19:24-0500 Respiratory rate 18 /min Sil Sullivan DO Work Phone: [employer] 03-02-2023 19:24-0500 SaO2% (BldA) [Mass fraction] 98 % Sil Sullivan DO Work Phone: [employer] 03-02-2023 19:24-0500 Systolic blood pressure 139 mm[Hg] Sil Sullivan DO Work Phone: [employer] 02-05-2023 09:20-0500 Body height 160.02 cm Jan Garg Other [employer] Other 02-05-2023 09:20-0500 Body mass index (BMI) [Ratio] 36.66 kg/m2 Jan Garg Other [employer] Other 02-05-2023 09:20-0500 Body weight 93.9 kg Jan Garg Other [employer] Other 01-15-2023 09:45-0500 Body height 160.02 cm Gayathri Angie Other [employer] Other 01-15-2023 09:45-0500 Body mass index (BMI) [Ratio] 36.68 kg/m2 Gayathri Scally Other [employer] Other 01-15-2023 09:45-0500 Body weight 93.94 kg Gayathri Scally Other [employer] Other 01-15-2023 09:45-0500 Diastolic blood pressure 83 mm[Hg] Gayathri Scally Other [employer] Other 01-15-2023 09:45-0500 Respiratory rate 18 /min Gayathri Scally Other [employer] Other 01-15-2023 09:45-0500 SaO2% (BldA) [Mass fraction] 99 % Gayathri Scally Other [employer] Other 01-15-2023 09:45-0500 Systolic blood pressure 119 mm[Hg] Gayathri Scally Other [employer] Other 01-07-2023 10:00-0500 Body height 160.02 cm Jan Garg Other [employer] Other 01-07-2023 10:00-0500 Body mass index (BMI) [Ratio] 36.13 kg/m2 Jan Garg Other [employer] Other 01-07-2023 10:00-0500 Body weight 92.53 kg Jan Britany Other [employer] Other 01-07-2023 10:00-0500 Diastolic blood pressure 74 mm[Hg] Jan Scovanjillian Other [employer] Other 01-07-2023 10:00-0500 Systolic blood pressure 118 mm[Hg] Jan Scovanjillian Other [employer] Other 08-28-2022 09:00-0400 Body height 160.02 cm Tamar Fitt Other [employer] Other 08-28-2022 09:00-0400 Body mass index (BMI) [Ratio] 35.8 kg/m2 Tamar Fitt Other [employer] Other 08-28-2022 09:00-0400 Body weight 91.67 kg Tamar Fitt Other [employer] Other 07-29-2022 10:15-0400 Body height 160.02 cm Gayathri Scally Other [employer] Other 07-29-2022 10:15-0400 Body mass index (BMI) [Ratio] 35.18 kg/m2 Gayathri Scally Other [employer] Other 07-29-2022 10:15-0400 Body weight 90.08 kg Gayathri Scally Other [employer] Other 07-29-2022 10:15-0400 Diastolic blood pressure 84 mm[Hg] Gayathri Scally Other [employer] Other 07-29-2022 10:15-0400 Respiratory rate 18 /min Gayathri Scally Other [employer] Other 07-29-2022 10:15-0400 SaO2% (BldA) [Mass fraction] 99 % Gayathri Scally Other [employer] Other 07-29-2022 10:15-0400 Systolic blood pressure 127 mm[Hg] Gayathri Scally Other [employer] Other 05-20-2022 11:15-0400 Body height 160.02 cm Gayathri Scally Other [employer] Other 05-20-2022 11:15-0400 Body mass index (BMI) [Ratio] 34.52 kg/m2 Gayathri Scally Other [employer] Other 05-20-2022 11:15-0400 Body weight 88.41 kg Gayathri Scally Other [employer] Other 05-20-2022 11:15-0400 Diastolic blood pressure 82 mm[Hg] Gayathri Scally Other [employer] Other 05-20-2022 11:15-0400 Respiratory rate 18 /min Gayathri Scally Other [employer] Other 05-20-2022 11:15-0400 SaO2% (BldA) [Mass fraction] 97 % Gayathri Scally Other [employer] Other 05-20-2022 11:15-0400 Systolic blood pressure 121 mm[Hg] Gayathri Scally Other [employer] Other 04-08-2022 11:15-0500 Body height 160.02 cm Gayathri Scally Other [employer] Other 04-08-2022 11:15-0500 Body mass index (BMI) [Ratio] 34.49 kg/m2 Gayathri Scally Other [employer] Other 04-08-2022 11:15-0500 Body weight 88.32 kg Gayathri Scally Other [employer] Other 04-08-2022 11:15-0500 Diastolic blood pressure 77 mm[Hg] Gayathri Scally Other [employer] Other 04-08-2022 11:15-0500 Respiratory rate 18 /min Gayathri Scally Other [employer] Other 04-08-2022 11:15-0500 SaO2% (BldA) [Mass fraction] 98 % Gayathri Scally Other [employer] Other 04-08-2022 11:15-0500 Systolic blood pressure 110 mm[Hg] Gayathri Scally Other [employer] Other 04-08-2022 10:15-0500 Body height 160.02 cm Tamar Fitt Other [employer] Other 04-08-2022 10:15-0500 Body mass index (BMI) [Ratio] 34.49 kg/m2 Tamar Fitt Other [employer] Other 04-08-2022 10:15-0500 Body weight 88.32 kg Tamar Fitt Other [employer] Other 02-26-2022 10:00-0500 Body height 160.02 cm Tamar Fitt Other [employer] Other 02-25-2022 11:45-0500 Body height 160.02 cm Gayathri Scally Other [employer] Other 02-25-2022 11:45-0500 Body mass index (BMI) [Ratio] 36.63 kg/m2 Gayathri Scally Other [employer] Other 02-25-2022 11:45-0500 Body weight 93.8 kg Gayathri Scally Other [employer] Other 02-25-2022 11:45-0500 Diastolic blood pressure 78 mm[Hg] Gayathri Scally Other [employer] Other 02-25-2022 11:45-0500 Respiratory rate 18 /min Gayathri Scally Other [employer] Other 02-25-2022 11:45-0500 SaO2% (BldA) [Mass fraction] 97 % Gayathri Scally Other [employer] Other 02-25-2022 11:45-0500 Systolic blood pressure 109 mm[Hg] Gayathri Scally Other [employer] Other 01-14-2022 11:45-0500 Body height 160.02 cm Gayathri Scally Other [employer] Other 01-14-2022 11:45-0500 Body mass index (BMI) [Ratio] 39.37 kg/m2 Gayathri Scally Other [employer] Other 01-14-2022 11:45-0500 Body weight 100.84 kg Gayathri Scally Other [employer] Other 01-14-2022 11:45-0500 Diastolic blood pressure 88 mm[Hg] Gayathri Scally Other [employer] Other 01-14-2022 11:45-0500 Respiratory rate 18 /min Gayathri Scally Other [employer] Other 01-14-2022 11:45-0500 SaO2% (BldA) [Mass fraction] 97 % Gayathri Scally Other [employer] Other 01-14-2022 11:45-0500 Systolic blood pressure 124 mm[Hg] Gayathri Scally Other [employer] Other 12-04-2021 12:00-0400 Body height 160.02 cm Gayathri Scally Other [employer] Other 12-04-2021 12:00-0400 Body mass index (BMI) [Ratio] 39.73 kg/m2 Gayathri Scally Other [employer] Other 12-04-2021 12:00-0400 Body weight 101.74 kg Gayathri Scally Other [employer] Other 12-04-2021 12:00-0400 Diastolic blood pressure 74 mm[Hg] Gayathri Scally Other [employer] Other 12-04-2021 12:00-0400 Respiratory rate 18 /min Gayathri Scally Other [employer] Other 12-04-2021 12:00-0400 SaO2% (BldA) [Mass fraction] 95 % Gayathri Scally Other [employer] Other 12-04-2021 12:00-0400 Systolic blood pressure 110 mm[Hg] Gayathri Adams Other [employer] Other 10-29-2021 11:30-0400 Body height 160.02 cm Yo Blank Other [employer] Other 10-29-2021 11:30-0400 Body mass index (BMI) [Ratio] 38.61 kg/m2 Yo Blank Other [employer] Other 10-29-2021 11:30-0400 Body weight 98.88 kg Yo Blank Other [employer] Other 10-29-2021 11:30-0400 Diastolic blood pressure 74 mm[Hg] Yo Blank Other [employer] Other 10-29-2021 11:30-0400 Systolic blood pressure 111 mm[Hg] Yo Blank Other [employer] Other 10-22-2021 13:26-0400 Body temperature 97.2 [degF] Sahwna Rumschlag DO Work Phone: [employer] 10-22-2021 13:26-0400 Diastolic blood pressure 71 mm[Hg] Shawna Rumschlag DO Work Phone: [employer] 10-22-2021 13:26-0400 Heart rate 85 /min Shawna Rumschlag DO Work Phone: [employer] 10-22-2021 13:26-0400 Respiratory rate 16 /min Shawna Rumschlag DO Work Phone: [employer] 10-22-2021 13:26-0400 SaO2% (BldA) [Mass fraction] 94 % Shawna Rumschlag DO Work Phone: [employer] 10-22-2021 13:26-0400 Systolic blood pressure 131 mm[Hg] Shawna Rumschlag DO Work Phone: [facility] [employer] 10-11-2021 23:48-0400 Body height 160 cm Daniel Adkins MD Work Phone: [employer] 10-11-2021 23:48-0400 Body mass index (BMI) [Ratio] 36.67 kg/m2 Daniel Adkins MD Work Phone: [employer] 10-11-2021 23:48-0400 Body temperature 98.6 [degF] Daniel Adkins MD Work Phone: [employer] 10-11-2021 23:48-0400 Body weight 93.89 kg Daniel Adkins MD Work Phone: [employer] 10-11-2021 23:48-0400 Diastolic blood pressure 88 mm[Hg] Daniel Adkins MD Work Phone: [employer] 10-11-2021 23:48-0400 Heart rate 97 /min Daniel Adkins MD Work Phone: [employer] 10-11-2021 23:48-0400 Respiratory rate 16 /min Daniel Adkins MD Work Phone: [employer] 10-11-2021 23:48-0400 SaO2% (BldA) [Mass fraction] 96 % Daniel Adkins MD Work Phone: [employer] 10-11-2021 23:48-0400 Systolic blood pressure 134 mm[Hg] Daniel Adkins MD Work Phone: [employer] Encounters Encounter Date Encounter Type Care Provider Facility Start: 03-09-2024 End: 03-09-2024 ambulatory Rory Driver [facility] Work Phone: [facility] Work Phone: Start: 03-09-2024 End: 03-09-2024 Departed Referred Rory Driver [facility]- Work Phone: [facility] Start: 02-29-2024 End: 03-03-2024 Refill Luly English MD Work Phone: [facility] Comment on above: Chronic rhinitis Start: 02-16-2024 End: 02-17-2024 Telephone encounter Cleo Zambrano MD Work Phone: [facility] Comment on above: Medication Problem Start: 02-09-2024 End: 02-09-2024 Subsequent hospital visit by physician [facility] Start: 02-09-2024 ambulatory [facility] Start: 02-01-2024 End: 02-01-2024 ambulatory [facility] Start: 01-26-2024 End: 01-26-2024 ambulatory [facility] Start: 01-26-2024 End: 01-26-2024 Subsequent hospital visit by physician Tamar [facility] Comment on above: Arrived Start: 01-21-2024 End: 01-21-2024 Patient encounter procedure Rory Driver [facility]- Work Phone: [facility] Work Phone: Start: 01-13-2024 End: 01-13-2024 Emergency department patient visit Lisette Junior DO Work Phone: [facility] Comment on above: Dizziness (Primary D x) Start: 01-11-2024 End: 01-11-2024 ambulatory Ugo Bourgeois [facility] Start: 12-29-2023 End: 12-29-2023 Subsequent hospital visit by physician Tamar [facility] Start: 12-21-2023 End: 12-21-2023 ambulatory CARMEN FISHER [facility] Start: 12-15-2023 End: 12-15-2023 ambulatory SHAWNA BOGDAN [facility] Start: 12-01-2023 End: 12-01-2023 ambulatory [facility] Start: 11-30-2023 End: 11-30-2023 Bamboo flowsheet Brittany Neville [employer]UL[employer]IT[employer] Work Phone: [facility] Start: 11-30-2023 End: 11-30-2023 Bamboo flowsheet Brittany Neville GULLET SLITTER Work Phone: [facility] Start: 11-30-2023 End: 11-30-2023 Telephone encounter Brittany Neville GULLET SLITTER [facility]: [facility] Start: 11-30-2023 End: 11-30-2023 ambulatory BRITTANY NEVILLE Not Available Start: 11-30-2023 End: 11-30-2023 Office outpatient visit 25 minutes Brittany Neville GULLET SLITTER Work Phone: [facility] Comment on above: JADON (obstructive sle ep apnea) (Primary Dx); Tension headache; Chronic bilateral low back pain, unspecified whether sciatica present; Paresthesias Start: 11-17-2023 End: 11-17-2023 ambulatory [facility] Start: 11-17-2023 End: 11-17-2023 Subsequent hospital visit by physician Tamar Silveira PT [facility] Comment on above: Arrived Start: 11-16-2023 End: 11-16-2023 ambulatory Ugo Bourgeois MD Facility:[facility] Start: 10-20-2023 End: 10-20-2023 ambulatory [facility] Start: 10-20-2023 End: 10-20-2023 Subsequent hospital visit by physician Jan Olmstead PT [facility] Physical Therapy Comment on above: Arrived Start: 10-08-2023 End: 10-08-2023 Office outpatient new 30 minutes Dwayne Osito Sugg MD Work Phone: [facility] Comment on above: Macromastia (Primary Dx) Start: 10-08-2023 End: 10-08-2023 ambulatory DWAYNE KHOURY [facility] Start: 10-06-2023 End: 10-07-2023 Emergency department patient visit [facility] Start: 10-05-2023 End: 10-05-2023 Emergency department patient visit [facility] Start: 10-05-2023 End: 10-05-2023 Emergency department patient visit [facility] Start: 09-22-2023 End: 09-22-2023 Subsequent hospital visit by physician Jan Olmstead PT [facility] Start: 09-15-2023 End: 09-15-2023 ambulatory [facility]AWNA RUMSCHLAG [facility] Start: 09-07-2023 End: 09-07-2023 ambulatory SHAWNA RUMSCHLAG [facility] Start: 09-01-2023 End: 09-01-2023 ambulatory SHAWNA RUMSCHLAG [facility] Start: 08-26-2023 End: 08-26-2023 ambulatory SHAWNA RUMSCHLAG [facility] Start: 08-26-2023 End: 08-26-2023 Subsequent hospital visit by physician Kofi Villegas PT [facility] Physical Therapy Comment on above: Arrived Start: 08-21-2023 End: 08-21-2023 ambulatory SHAWNA RUMSCHLAG [facility] Start: 08-21-2023 End: 08-21-2023 Subsequent hospital visit by physician Jan Olmstead PT [facility] Physical Therapy Comment on above: Arrived Start: 08-13-2023 End: 08-13-2023 ambulatory LAILA LIEBERMAN Not Available Start: 08-11-2023 End: 08-11-2023 ambulatory SHAWNA RUMSCHLAG [facility] Start: 08-11-2023 End: 08-11-2023 Subsequent hospital visit by physician Jan Olmstead PT [facility] Physical Therapy Comment on above: Arrived Start: 08-04-2023 End: 08-04-2023 ambulatory SHAWNA RUMSCHLAG [facility] Start: 07-29-2023 End: 07-29-2023 [facility] Start: 07-14-2023 End: 07-14-2023 Subsequent hospital visit by physician Rebecca Skinner PT [facility] Start: 07-07-2023 End: 07-07-2023 ambulatory SHAWNA RUMSCHLAG [facility] Start: 06-30-2023 End: 06-30-2023 ambulatory SHAWNA RUMSCHLAG [facility] Start: 06-17-2023 End: 06-17-2023 ambulatory SHAWNA RUMSCHLAG [facility] Start: 06-16-2023 End: 06-16-2023 ambulatory SHAWNA DARIOLAG [facility] Start: 06-04-2023 End: 06-04-2023 ambulatory [facility] Start: 06-03-2023 End: 06-03-2023 ambulatory [facility] Start: 06-02-2023 End: 06-02-2023 Office outpatient new 30 minutes Deepika Robledo MD Work Phone: [facility] Comment on above: Mass of upper outer quadrant of right breast (Primary Dx); Abnormal mammogram; Symptomatic mammary hypertrophy Start: 06-02-2023 End: 06-02-2023 ambulatory DEEPIKA ROBLEDO [facility] Start: 06-02-2023 ambulatory SHAWNA [facility] Start: 05-25-2023 Patient encounter procedure Brittany Neville NP Work Phone: [facility] Start: 05-25-2023 End: 05-25-2023 ambulatory ROEL GARBER Not Available Start: 05-21-2023 End: 05-21-2023 Patient encounter procedure [facility] Work Phone: Start: 05-21-2023 End: 05-21-2023 Patient encounter procedure [facility] Work Phone: Start: 05-20-2023 End: 05-20-2023 ambulatory SHAWNA RUMLINCOLNG [facility] Start: 05-19-2023 End: 05-19-2023 ambulatory SHAWNA EDWARG [facility] Start: 05-12-2023 Telephone encounter Deepika Robledo MD Work Phone: [facility] Start: 05-06-2023 End: 05-06-2023 ambulatory [facility]MDG [facility] Start: 05-06-2023 End: 05-06-2023 Subsequent hospital visit by physician Rojas Altamirano PTA [facility] Physical Therapy Comment on above: Arrived Start: 05-05-2023 End: 05-05-2023 [facility] Start: 04-30-2023 Refill Maty Fulton RN [facility] Start: 04-28-2023 End: 04-28-2023 ambulatory GAURAV SELLERS [facility] Start: 04-28-2023 End: 04-28-2023 Office outpatient visit 25 minutes Gaurav CALVO Work Phone: [facility] Comment on above: 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 (Primary Dx) Start: 04-21-2023 End: 04-21-2023 ambulatory [facility] Start: 04-20-2023 End: 04-20-2023 Emergency department patient visit [facility] ED Comment on above: Closed head injury, initial encounter (Primary Dx); Fall due to slipping on ice or snow, initial encounter; Acute cervical myofascial strain, initial encounter Start: 04-16-2023 ambulatory Rory T Shammo Facility :[facility] Start: 04-07-2023 End: 04-07-2023 ambulatory [facility] Start: 03-31-2023 Refill Patricia Clay RN [facility] Start: 03-27-2023 End: 03-27-2023 ambulatory PETE SILVER [facility] Start: 03-24-2023 End: 03-24-2023 ambulatory SHAWNA Jin [facility] Start: 03-19-2023 End: 03-19-2023 ambulatory GABY JUNE Not Available Start: 03-18-2023 Telephone encounter Jan [facility] Start: 03-18-2023 End: 03-18-2023 ambulatory NON STAFF [facility] [employer] Other Start: 03-18-2023 Non-patient / Non-visit MD Yo Blank Work Phone: [facility] Work Phone: Start: 03-17-2023 End: 03-17-2023 ambulatory Jan Garg Other [employer] Other Start: 03-17-2023 Telephone encounter Jan Peterson [facility] Start: 03-16-2023 Encounter for genera l adult medical examination without abnormal findings [facility] Start: 03-16-2023 End: 03-16-2023 ambulatory RORY DRIVER [facility] Start: 03-16-2023 End: 03-16-2023 ambulatory LULY ENGLISH Not Available Start: 03-10-2023 End: 03-10-2023 ambulatory SHAWNA Browningy [facility] Start: 03-10-2023 End: 03-10-2023 Subsequent hospital visit by physician Tamar Silveira PT [facility] Comment on above: Arrived Start: 03-05-2023 (FCCCWMNF/U) Weight Management f/u Gayathri Adams [facility] Start: 03-05-2023 End: 03-05-2023 ambulatory Gayathri Adams Other [employer] Other Start: 03-05-2023 Registered Recurring MD Monserrat Blank Work Phone: [facility] Work Phone: Start: 03-02-2023 End: 03-02-2023 Emergency department patient visit Sil Lázaro Sullivan DO Work Phone: [facility] Comment on above: Constipation, unspec ified constipation type (Primary Dx) Start: 02-26-2023 End: 02-26-2023 ambulatory Jan Garg Other [employer] Other Start: 02-26-2023 Telephone encounter Jan [facility] Start: 02-20-2023 Telephone encounter Argenis Storm RN [facility] Comment on above: Medication, DME Start: 02-18-2023 End: 02-18-2023 ambulatory Jan Garg Other [employer] Other Start: 02-18-2023 Telephone encounter Jan Peterson [facility] Start: 02-10-2023 Telephone encounter Margaux Olea [facility] Start: 02-05-2023 End: 02-05-2023 ambulatory Jan Garg Other [employer] Other Start: 02-05-2023 Office outpatient visit 15 minutes Jan Garg [facility] Start: 01-15-2023 (FCCCWMNF/U) Weight Management f/u Gayathri Adams [facility] Start: 01-15-2023 End: 01-15-2023 ambulatory Gayathri Adams Other [employer] Other Start: 01-07-2023 End: 01-07-2023 ambulatory Jan Garg Other [employer] Other Start: 01-07-2023 Office outpatient visit 15 minutes Jan Garg [facility] Start: 09-25-2022 End: 01-16-2023 ambulatory SENIOR BUSINESS INTELLIGENCE ANALYST YUE GRANADO Facility:[facility] Start: 09-25-2022 End: 01-15-2023 Recurring YUE GRANADO [facility] Start: 09-17-2022 End: 09-17-2022 ambulatory Gayathri Adams Other [employer] Other Start: 09-17-2022 Telephone encounter Gayathri [facility] Start: 08-28-2022 ([facility] RD FU) [facility] F/ U 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 Telescope Repairer Tamar Sosa [facility] Start: 08-28-2022 End: 08-28-2022 ambulatory Tamar Sosa Other [employer] Other Start: 07-29-2022 [facility] Weight Management f/u Gayathri Angie [facility] Start: 07-29-2022 End: 07-29-2022 ambulatory Gayathri Angie Other [employer] Other Start: 05-20-2022 [facility] Weight Management f/u Gayathrikasia Adams [facility] Start: 05-20-2022 End: 05-20-2022 ambulatory Gayathrimarino Adams Other [employer] Other Start: 05-19-2022 End: 05-19-[address] ROEL GARBER . Facility:[facility] Start: 05-07-2022 End: 05-08-[address] DOCTOR ARREOLA Facility:[facility] Start: 04-09-2022 End: 04-09-2022 ambulatory Gayathrimarino Adams Other [employer] Other Start: 04-09-2022 Telephone encounter Gayathri Angie [facility] Start: 04-08-2022 ([facility] WMNI) WMN Initial Provider Tamar Sosa [facility] Start: 04-08-2022 ([facility] Weight Management f/u Gayathri Scally [facility] Start: 04-08-2022 End: 04-08-2022 ambulatory Tamar Fitt Other [employer] Other Start: 02-26-2022 End: 02-26-2022 ambulatory Tamar Fitt Other [employer] Other Start: 02-26-2022 IBT FOR OBESITY GROU P 2-10 30M Tamar Jackkhalif [facility] Start: 02-25-2022 [facility] Weight Management f/u Gayathri Brooklynly [facility] Start: 02-25-2022 End: 02-25-2022 ambulatory Gayathri Brooklynly Other [employer] Other Start: 02-17-2022 End: 02-18-2022 ambulatory RORY KOOMN Facility:[facility] Start: 01-29-2022 End: 01-30-2022 ambulatory JOY Reis [facility] Facility:[facility] Start: 01-14-2022 ([facility] Weight Management f/u Gayathri Brooklynly [facility] Start: 01-14-2022 End: 01-14-2022 ambulatory Gayathri Scally Other [employer] Other Start: 12-05-2021 End: 12-05-2021 ambulatory Gayathri Scally Other [employer] Other Start: 12-05-2021 Telephone encounter Gayathri [place] [facility] [place] [facility] Start: 12-04-2021 End: 12-04-2021 ambulatory Gayathri Scally Other [employer] Other Start: 12-04-2021 Nutrition therapy Gayathri Harrington [facility] Start: 10-29-2021 End: 10-29-2021 ambulatory Yo Blank Other [facility] [employer] Other Start: 10-29-2021 Patient encounter procedure Yo Blank [facility] Start: 10-22-2021 End: 10-22-2021 Emergency department patient visit Shawna Mcfadden DO Work Phone: [facility] Comment on above: Acute diffuse otitis externa of left ear (Primary Dx) Start: 10-11-2021 End: 10-12-2021 Emergency department patient visit Daniel Adkins MD Work Phone: [facility] Comment on above: Pilonidal cyst (Prim romero Dx) Start: 11-21-2016 End: 11-26-2016 Ambulatory Juan Ramon Caraúl Facility:[facility] Procedures Date Procedure Procedure Detail Performing [...] spine w/ o contrast material Precious Urbina DELIVERY TABLE FEEDER - SENIOR BUSINESS INTELLIGENCE ANALYST Work Phone: Start: 04-20-2023 Ct head/brain w/o co ntrast material Precious Urbina DELIVERY TABLE FEEDER - SENIOR BUSINESS INTELLIGENCE ANALYST Work Phone: Start: 03-16-2023 Mammography Brittany Jg yoo GULLET SLITTER Work Phone: Start: 05-02-2022 Microalbumin [Mass/v olume] in Urine by Test strip Patricia Clay RN Start: 05-02-2020 Adult depression scr eening assessment Argenis Storm RN Start: 08-30-2016 Cholecystectomy YUE PARISH Start: 01-03-2013 nasal surgery YUE ALVARENGA RS Tonsillectomy YUE GRANADO Plan of Treatment Date Care Activity Detail Author Start: 05-20-2027 Screening for malignant neoplasm of cervix [facility] Start: 05-24-2026 Screening for malignant neoplasm of cervix Pap Smear 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 Comment on above: 1 year [facility] Start: 10-07-2024 Adult BMI Screening Adult BMI Screen ing [facility] Start: 10-07-2024 Tobacco Screening Tobacco Screening [facility] Start: 06-01-2024 Adult BMI Screening Adult BMI Screen ing [facility] Start: 05-26-2024 End: 05-26-2024 Patient encounter procedure 05/26/2024 11:00 AM EDT Office Visit [facility] [address] [place] [id number] Roel Garber DO [address] [place] [address] [facility] Start: 04-28-2024 Adult BMI Screening Adult BMI Screen ing [facility] Start: 04-28-2024 Tobacco Screening Tobacco Screening [facility] Start: 03-24-2024 End: 03-24-2024 Patient encounter procedure 03/24/2024 3:00 PM EST Office Visit [facility] [address] [place] [address] Brittany Neville NP [address] [place] [place] [facility] Start: 03-17-2024 End: 03-17-2024 Patient encounter procedure 03/17/2024 9:20 AM EST [facility] [address] [place] [phone] Cleo Zambrano MD [address] [place] [address] [facility] Start: 03-16-2024 Adult BMI Screening Adult BMI Screen ing [facility] Start: 03-16-2024 Screening for malignant neoplasm of breast Mammogram [facility] Start: 03-11-2024 End: 03-11-2024 Patient encounter procedure 03/11/2024 10:00 AM EST Office Visit [facility]ASM[facility] [address] [place] [phone] Mendez Ortiz, DO [address] [place] [address] [facility] Start: 03-09-2024 Group A Streptococcu s Culture Group A Streptococcus Culture [facility] Start: 02-19-2024 End: 02-19-2024 Patient encounter procedure 02/19/2024 2:00 PM EST Office Visit [facility] [address] [place] [phone] Mendez Ortiz, DO [address] [place] [address] [facility] Start: 02-16-2024 End: 02-16-2024 Patient encounter procedure 02/16/2024 3:40 PM EST Office Visit NATALIIA [facility] [address] [place] [phone] Brittany Neville, GULLET SLITTER [address] [place], [place] [facility] [address] Start: 02-09-2024 End: 02-09-2024 Patient encounter procedure 02/09/2024 11:15 AM EST Appointment [facility] [address] [place], [place] [phone] Tamar Silveira, [place] dry needling [facility] Comment on above: dry needling Start: 02-08-2024 End: 02-08-2024 Patient encounter procedure 02/08/2024 1:45 PM EST Appointment [facility] [address] [place] [phone] Chepe Ingram MD [address] [facility] [facility] [address] [place], [place] [phone] [facility] Start: 01-30-2024 Adult BMI Screening Adult BMI Screen ing [facility] Start: 01-30-2024 Tobacco Screening Tobacco Screening [facility] Start: 01-26-2024 End: 01-26-2024 Patient encounter procedure 01/26/2024 8:00 AM EST Appointment [facility] Physical Therapy [address] [place] [phone] Tamar Silveira, [place] dry needling [facility] Physical Therapy Comment on above: dry needling Start: 01-13-2024 End: 01-13-2024 Patient encounter procedure 01/13/2024 8:15 AM EST Office Visit [facility] Part of [address] [place] [phone] Georges [place], PA-C [address] [facility] [address] [place] [phone] incontinence [facility] Part of [facility] Comment on above: incontinence Start: 12-29-2023 End: 12-29-2023 Patient encounter procedure 12/29/2023 9:00 AM EDT Appointment [facility] Physical Therapy [address] [place], [place] [phone] Tamar Silveira, PT NEEDLING [facility] Physical Therapy Comment on above: NEEDLING Start: 12-15-2023 End: 12-15-2023 Patient encounter procedure 12/15/2023 9:00 AM EDT Appointment [facility] Physical Therapy [address] [place], [place] [phone] Tamar Silveira, PT [place] [facility] Physical Therapy Comment on above: [facility] Start: 12-01-2023 End: 12-01-2023 Patient encounter procedure 12/01/2023 9:45 AM EDT Appointment [facility] [address] [place], [place] [phone] Tamar Silveira, PT [facility] Comment on above: [facility] Start: 11-01-2023 Influenza vaccination [facility] Start: 10-08-2023 End: 10-08-2023 Patient encounter procedure 10/08/2023 9:00 AM EDT Office Visit [facility] [address] [facility] [address] [place] [address] Dwayne Khoury MD [address], [facility] [address] [place] [address] [facility] Start: 10-01-2023 Influenza vaccination Flu vaccine (# 1) [facility] Start: 09-01-2023 End: 09-01-2023 Patient encounter procedure 09/01/2023 10:30 AM EDT Appointment [facility] [address] [place], [place] [phone] Osito Rowan [facility] Start: 08-26-2023 End: 08-26-2023 Patient encounter procedure 08/26/2023 2:30 PM EDT Appointment [facility] [address] [place] [phone] Kofi Villegas, PT [facility] Start: 08-18-2023 End: 08-18-2023 Patient encounter procedure 08/18/2023 9:45 AM EDT Appointment [facility] [address] [place], [place] [phone] Osito Rowan [facility] Start: 08-11-2023 End: 08-11-2023 Patient encounter procedure 08/11/2023 1:15 PM EDT Appointment [facility] [address] [place], [place] [phone] Jan Olmstead, PT DRY [facility] Comment on above: DRY [facility] Start: 08-04-2023 End: 08-04-2023 Patient encounter procedure 08/04/2023 4:15 PM EDT Appointment [facility] [address] [place] [phone] Osito Rowan [facility] Start: 06-03-2023 End: 06-03-2023 Patient encounter procedure 06/03/2023 3:30 PM EDT Appointment [facility] [address] [place] [phone] Osito Rowan [facility] Start: 06-02-2023 End: 06-02-2023 Patient encounter procedure [facility] Comment on above: DRY NEEDLING- jd gibson coordinates with son's appt Start: 05-23-2023 Hepatitis B vaccine (3 of 3 - Hep B Twinrix 3-dose series) Hepatitis B vaccine (3 of 3 - Hep B Twinrix 3-dose series) [facility] Start: 05-20-2023 End: 05-20-2023 Patient encounter procedure 05/20/2023 3:15 PM EDT Appointment [facility] [address] [place] [phone] Rojas Altamirano PTA [facility] Start: 05-19-2023 End: 05-19-2023 Patient encounter procedure 05/19/2023 12:45 PM EDT Appointment [facility] [address] [place] [phone] Rebecca Skinner, PT DRY NEEDLING- dont move coordinates with son's apptDRY NEEDLING [facility] Comment on above: DRY NEEDLING- dont m ove coordinates with son's apptDRY [place]L[facility] Start: 05-05-2023 End: 05-05-2023 Patient encounter procedure [facility] Comment on above: DRY NEEDLING DRY NEEDLING- dont m ove coordinates with son's appt Start: 05-03-2023 Urine screening for protein Urine Microalbumin [facility] Start: 04-28-2023 End: 04-28-2023 Patient encounter procedure 04/28/2023 10:45 AM EST Office Visit [facility] [address] [place] [phone] Gaurav Sellers PA [address] [place] [address] [facility] Start: 04-21-2023 End: 04-21-2023 Patient encounter procedure [facility] Comment on above: DRY NEEDLING DRY NEEDLING- dont m ove coordinates with son's appt Start: 04-07-2023 End: 04-07-2023 Patient encounter procedure 04/07/2023 2:15 PM EST Appointment [facility] [address] [place] [phone] Rebecca Skinner, IRV[place] DRY NEEDL[facility] Comment on above: DRY [place] Start: 03-27-2023 End: 03-27-2023 Admission to same day surgery center 03/27/2023 1:27 PM EST - 03/27/2023 1:33 PM EST Surgery [facility] [address] [place] [phone] Pete Silver MD [address] [place], [place] [phone] INJECTION BLOCK SACROILIAC JOINT [62553 (CPT )] [facility] Comment on above: INJECTION BLOCK SACR OILIAC JOINT [75616 (CPT )] Start: 03-27-2023 End: 03-27-2023 Inject si joint arthrgrphy&/anes/stero id w/monika INJECTION BLOCK SACROILIAC JOINT Disorder of sacrum 03/27/2023 1:27 PM EST [facility] Start: 03-27-2023 Subsequent hospital visit by physician 03/27/2023 1:27 PM EST Hospital Encounter [facility] [address] [place] [phone] Pete Silver MD [address] [facility] [place] [address] [facility] Start: 03-24-2023 End: 03-24-2023 Patient encounter procedure 03/24/2023 2:15 PM EST Appointment [facility] [address] [place], [place] [phone] Rebecca Skinner, PT DRY NEEDLING [facility] Comment on above: DRY [place] Start: 03-19-2023 [facility] Start: 03-16-2023 End: 03-16-2023 Patient encounter procedure 03/16/2023 11:45 AM EST Appointment [facility] [address] [place] [address] [facility] Start: 03-10-2023 End: 03-10-2023 Patient encounter procedure 03/10/2023 2:30 PM EST Appointment [facility] [address] [place] [address] [phone] Rebecca Skinner, PT [facility] Start: 09-30-2022 Influenza vaccination Flu vaccine (# 1) [facility] Start: 10-31-2021 Influenza vaccination Flu vaccine (# 1) [facility] Start: 09-03-2021 DTaP,Tdap and Td Vaccines (1 - Tdap) DTaP,Tdap and Td Vaccines (1 - Tdap) [facility] Start: 09-03-2021 DTaP/Tdap/Td vaccine (1 - Tdap) DTaP/Tdap/Td vaccine (1 - Tdap) [facility] Start: 05-02-2021 Depression Screening Depression Scre [facility] Start: 2020 Lipid panel Lipids [facility] Start: 01-04-2020 Diabetic foot examination Diabetic Foot Exam [facility] Start: 09-25-2015 Diabetes screen Diabetes screen [facility] Start: 2010 Screening for malignant neoplasm of cervix [facility] Start: 2001 Screening for malignant neoplasm of cervix Pap smear [facility] Start: 09-25-1999 DTaP/Tdap/Td vaccine (1 - Tdap) DTaP/Tdap/Td vaccine (1 - Tdap) [facility] Start: 1998 Adult BMI Follow Up Plan Adult BMI Follow Up Plan [facility] Start: 1998 Hepatitis C screening Hepatitis C sc reen [facility] Start: 09-25-1995 HIV screening HIV screen [facility] Start: 1993 Varicella vaccine (1 of 2 - 13+ 2-dose series) Varicella vaccine (1 of 2 - 13+ 2-dose series) [facility] Start: 1992 Depression Screen Depression Screen [facility] Start: 1992 Depression Screening Depression Scre [facility] Start: 1990 Lipid panel Lipids [facility] Start: 1981 Varicella vaccine (1 of 2 - 2-dose childhood series) Varicella vaccine (1 of 2 - 2-dose childhood series) [facility] Start: 03-27-1981 COVID-19 Vaccine (#1) COVID-19 Vacci ne (#1) [facility] Start: 1980 Glaucoma screening Diabetic Op hthalmology Exam [facility] Start: 1980 Hepatitis B vaccine (1 of 3 - 3-dose series) Hepatitis B vaccine (1 of 3 - 3-dose series) [facility] EKG 12 Lead EKG 12 Lead ECG Routine 01/13/2024 2:59 PM EST [facility] Inject si joint arthrgrphy&/anes/stero id w/monika INJECTION BLOCK SACROILIAC JOINT Disorder of sacrum [facility] Njx dx/ther agt pvrt facet jt lmbr/sac 1 level INJECTION BLOCK NERVE MEDIAL BRANCH Lumbosacral spondylosis without myelopathy [facility] Streptococcus pyogen es [Presence] in Unspecified specimen by Organism specific culture [facility] Immunizations Immunization Date Immunization Notes Care Provider Fa cili 12-07-2023 influenza, seasonal, injectable, preservative free Luly English MD Work Phone: [facility] 05-25-2023 hepatitis A and hepatitis B vaccine Luly English MD Work Phone: [facility] 12-22-2022 hepatitis A and hepatitis B vaccine Luly English MD Work Phone: [facility] 12-22-2022 Seasonal, quadrivale nt, recombinant, injectable influenza vaccine, preservative free Luly English MD Work Phone: [facility] 12-22-2022 influenza virus vaccine, unspecified formulation Deepika Robledo MD Work Phone: [facility] 06-23-2022 hepatitis A and hepatitis B vaccine Luly English MD Work Phone: [facility] 02-07-2022 Pneumococcal Conjuga te PCV 20 Luly English MD Work Phone: [facility] 12-23-2021 influenza, injectabl e, quadrivalent, preservative free Luly English MD Work Phone: [facility] 09-02-2021 TD(adult) unspecifie d formulation Luly English MD Work Phone: [facility] 12-24-2020 influenza, injectabl e, quadrivalent, preservative free Luly English MD Work Phone: [facility] 12-19-2019 influenza, injectabl e, quadrivalent, preservative free Luly English MD Work Phone: [facility] 12-19-2018 influenza, injectabl e, quadrivalent, preservative free Argenis Storm RN [facility] 12-02-2017 influenza, injectabl e, quadrivalent, preservative free Argenis Storm RN [facility] 12-02-2017 pneumococcal conjuga te vaccine, 13 valent Argenis Storm RN [facility] 10-10-2016 influenza virus vaccine, unspecified formulation Argenis Storm RN [facility] 10-10-2016 influenza, seasonal, injectable, preservative free Luly English MD Work Phone: [facility] 12-19-2013 influenza virus vaccine, live, attenuated, for intranasal use Argenis Storm RN [facility] 12-03-2012 influenza virus vaccine, whole virus Argenis Storm RN [facility] 12-29-2011 influenza virus vaccine, whole virus Argenis Storm RN [facility] 12-23-2010 influenza virus vaccine, whole virus Argenis Storm RN [facility] 12-18-2008 influenza virus vaccine, whole virus Argenis Storm [facility] Payers Date Payer Category Payer Self-pay [id number] 2022 Unknown 2013 Medicaid (Managed Care) [facility] MEDICAID [id number] 2002 Medicaid [id number] 2002 Medicaid [facility] MEDICA[facility] [id number] 1980 Unknown [id number] 2.16.840.1.690600.3.579.2. 593 1980 Unknown [id number] 2.16.840.1.909283.3.579.2. 593 1980 Unknown [id number] 2.16.840.1.653599.3.579.2. 593 1980 Unknown [id number] 2.16.840.1.479734.3.579.2. 593 1980 Unknown [id number] 2.16.840.1.192136.3.579.2. 727 1980 Unknown [id number] 2.16.840.1.497328.3.579.2. 1286 1980 Unknown [id number] 2.16.840.1.014991.3.579.2. 128 1980 Unknown [id number] 2.16.840.1.681095.3.579.2. 1286 1980 Unknown [id number] 2.16.840.1.536536.3.579.2. 1285 1980 Unknown [id number] 2.16.840.1.824999.3.579.2. 1259 1980 Unknown [id number] 2.16.840.1.155602.3.579.2. 1258 1980 Unknown [id number] 2.16840.1.438847.3.579.2. 1258 1980 Unknown [id number] 2.840.1.608686.3.579.2. 1258 1980 Unknown [id number] 2.16840.1.716397.3.579.2. 1258 1980 Unknown [id number] 2.840.1.475171.3.579.2. 1285 1980 Unknown [id number] 2.840.1.042054.3.579.2. 1285 1980 Unknown [id number] 2.840.1.773081.3.579.2. 1285 1980 Unknown [id number] 2.0.1.620531.3.579.2. 1285 1980 Unknown [id number] 2.0.1.577862.3.579.2. 1285 1980 Unknown [id number] 2.840.1.061808.3.579.2. 1285 1980 Unknown [id number] 2.0.1.158674.3.579.2. 1285 1980 Unknown [id number] 20.1.154549.3.579.2. 1980 Unknown [id number] 840.1.211789.3.579.2. 1980 Unknown [id number] 840.1.632634.3.579.2. 1980 Unknown [id number] 2.840.1.227855.3.579.2. 1980 Unknown [id number] 2.840.1.055508.3.579.2. 1980 Unknown [id number] 2840.1.439047.3.579.2. 1980 Unknown [id number] 2.840.1.153412.3.579.2. 1980 Unknown [id number] 2.840.1.065947.3.579.2. 1980 Unknown [id number] 2.840.1.833596.3.579.2. 1980 Unknown [id number] 2.840.1.760086.3.579.2. 1980 Unknown [id number] 2.840.1.763088.3.579.2. 1980 Unknown [id number] 2.840.1.525500.3.579.2. 1980 Unknown [id number] 2.840.1.188841.3.579.2. 1980 Unknown [id number] 20.1.510776.3.579.2. 1980 Unknown [id number] 2.840.1.923616.3.579.2. 1980 Unknown [id number] 20.1.442322.3.579.2. 1980 Unknown [id number] 2.0.1.770294.3.579.2. 1980 Unknown [id number] 840.1.455653.3.579.2. 1980 Unknown [id number] .840.1.480751.3.579.2. 1980 Unknown [id number] 2.840.1.399244.3.579.2. 1980 Unknown [id number] 2.840.1.500676.3.579.2. 1980 Unknown [id number] 2.840.1.289468.3.579.2. 1980 Unknown [id number] 2.16.840.1.237545.3.579.2. 173 1980 Unknown [id number] 2.16.840.1.633527.3.579.2. 1980 Unknown [id number] 2.16.840.1.987013.3.579.2. 1980 Unknown [id number] 2.16.840.1.677527.3.579.2. 1980 Unknown [id number] 2.16.840.1.920779.3.579.2. 1980 Unknown [id number] 2.16.840.1.899104.3.579.2. 1980 Unknown [id number] 2.16.840.1.296027.3.579.2. 1980 Unknown [id number] 2.16840.1.176354.3.579.2. 1980 Unknown [id number] 2.16.840.1.554735.3.579.2. 1980 Unknown [id number] 2.16840.1.509716.3.579.2. 1980 Unknown [id number] 2.16.840.1.666589.3.579.2. 1980 Unknown [id number] 2.16840.1.756030.3.579.2. 1980 Unknown [id number] 2.16.840.1.085510.3.579.2. 1980 Unknown [id number] 2.16.840.1.259999.3.579.2. 1980 Unknown [id number] 2.16.840.1.595776.3.579.2. 1980 Unknown [id number] 2.16.840.1.728691.3.579.2. 173 1959 Medicaid [id number] Unknown [id number] 2.16.840.1.072866.3.579.2. 531 Unknown [id number] 2.16.840.1.613893.3.579.2. 531 Unknown [id number] 2.16.840.1.583762.3.579.2. 531 Social History Date Type Detail Facility Start: 09-02-2017 End: 05-21-2023 Tobacco smoking status NHIS Never smoked tobacco [facility] Start: 09-02-2017 End: 03-10-2023 Tobacco use and exposure Smokeless tobacco non-user [employer] Phone: Start: 10-11-2021 End: 01-13-2024 Alcohol intake Current non-drinker of alcohol (finding) [employer] Phone: Start: 1980 Sex Assigned At Not on file [facility] [employer] Phone: Start: 10-01-2021 End: 10-22-2021 Exposure to SARS-CoV-2 (event) Not sure [employer] Phone: Start: 10-11-2021 End: 11-30-2023 Sex Assigned At [facility] Tobacco smoking status Never [facility] Start: 10-11-2021 End: 11-30-2023 History of Social function [facility] Start: 1980 Sex Assigned At Female F [facility] How often to you hav e a drink containing alcohol? Never [facility] Start: 10-05-2014 Sex Female (finding) [facility] Start: 02-11-2024 End: 02-18-2024 Alcoholic beverage intake Lifetime non-drinker (finding) [facility] Start: 03-11-2024 Sex Patient sex un known (finding) [facility] Medical Equipment Procedure Code Equipment Code Equipment Origin al Text Equipment Identifier Dates [place] Sut 5.5mm 2 Ft Crkscr Fbrwr Shldr 3 Pk 14.7mm Strl Ea=Bill-Only Rpl [id number] - [id number] Start: 05-15-2022 Use to test BLOO D SUGAR TWICE DAILY [id number] Start: 05-28-2020 Use to test BLOO D SUGAR TWICE DAILY, Diagnosis: E11.9 [id number] Start: 03-08-2020 Clinical Notes 10-22-2021 to 02-16-2024 [...] approved again. She's gained 20lbs on trulicity. [facility] 02-16-2024 Miscellaneous Notes Pt would like ot know if you can try to get the ozempic approved again. She's gained 20lbs on trulicity. documented in this encounter [facility] 02-09-2024 History of Presen t illness Narrative [facility] Inpatient/Observation/Outpatien t Rehabilitation Date: 02/09/2024 Patient Name: [...] DN Date: 02/09/2024 documented in this encounter [facility] 01-13-2024 Hospital Discharg e instructions Lisette Junior DO - 01/13/2024 5:40 PM EST Increase your fluid intake. Follow-up with your doctor to discuss your medications especially the gabapentin and cyclobenzaprine which can certainly make you feel tired and groggy all the time. The following attachments cannot be sent through Care Everywhere.Dizziness (Gambian)documented in this encounter [facility] 11-30-2023 Telephone encounter Note I called [...] believes that the device is MRI compatible. [facility] 11-30-2023 Miscellaneous Notes I called Dr [...] Inspire device. Her BMI is 35.96, will [place] allow this BMI Her HST is from 04/2022, does need this updated Will she be able to have MRIs If all of this is ok we will send for Inspire consult We will need to call her with an update documented in this encounter [facility] 11-30-2023 Telephone encounter Note Please call Dr. Brito office and ask the following questions in regards to Inspire device. Her BMI is 35.96, will [place] allow this BMI Her HST is from 04/2022, does need this updated Will she be able to have MRIs If all of this is ok we will send for Inspire consult We will need to call her with an update [facility] 11-30-2023 History of Presen t illness [...] Medical History: Diagnosis Date Anemia Bipolar disorder ([facility]) Body mass index (BMI) of 36.0 to 36.9 Cholecystitis 2017 Acute/chronic Chronic rhinitis Controlled type 2 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, without long-term current use of insulin ([facility]) Gastritis 2017 GERD (gastroesophageal reflux disease) Hyperlipemia ([facility]) Insertion of Nexplanon Iron deficiency anemia Kidney stones OCD (obsessive compulsive disorder) ([facility]) Open wound of toe without complication 03/10/2023 PTSD (post-traumatic stress disorder) ([facility]) Recurrent epistaxis Seasonal allergies Umbilical hernia 2017 [...] on. She understands the risk of stroke, AK and without wearing it. She states she [...] She did switch to a provider in [place]. They did change her zanaflex and mobic [...] and see if BMI of 36 with [place] is feasible for Inspire device, if it [...] was counseled on the risks of stroke, AK, and sudden with JADON, along with the need for compliance with the CPAP/BiPAP treatment. 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 Snf Goal 3: Pt will report 40% improvement in overall complaints and improved tolerance to her job tasks - 40% improved. Snf Goal 4: Pt kvng UE strength will be 5/5 without increasing pain complaints to assist in tolerance of lifting and carrying -PARTIALLY MET 4+/5 grossly. Minutes Tracking: Time In: 944 Time Out: 0 Minutes: 45 Timed Code Treatment Minutes: 43 Minutes Jan Olmstead PT, DPT, OCS, Cert. DN Date: 10/20/2023 documented in this encounter [facility] 10-08-2023 History of Presen t illness Narrative [facility] [address] Office Dwayne Khoury MD, PhD Caryl Mao, DELIVERY TABLE FEEDER-SENIOR BUSINESS INTELLIGENCE ANALYST Dayan Harmon PA-C Plastic Surgery New Patient [...] mass follow up Ultrasound was done in [place] the nodule was noted but seemed consistent with a lymph node. Breast size has remained the same with weight loss Family history is positive for breast disease and breast cancer in her maternal grandmother Did she have children did breast feed Past Medical History: Past Medical History: Diagnosis Date Anxiety Asthma Back pain Bipolar 1 disorder ([facility]) Breast disorder enlarged lymph nodes in both breast Carpal tunnel syndrome Chronic pain disorder Deep vein thrombosis ([facility]) blood clot in left arm Dental disease [...] night 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 ([facility]) 11/10/2017 Visual impairment Past Surgical History: Past Surgical History: Procedure Laterality Date ANKLE SURGERY Left x2 ARTHROSCOPY SHOULDER WITH ROTATOR CUFF REPAIR Right 05/15/2022 Performed by Chepe Ingram MD at [facility] DEBRIDEMENT Right 05/15/2022 Performed by Chepe Ingram MD at [facility] DECOMPRESSION OF SUBACROMIAL SPACE WITH PARTIAL ACROMIOPLASTY Right 05/15/2022 Performed by Chepe Ingram MD at [facility] INJECTION BLOCK EPIDURAL STEROID LUMBAR/SACRAL: L 4/5 WU N/A 04/22/2021 Performed by Pete Silver MD at [facility] INJECTION BLOCK SACROILIAC JOINT Left 03/27/2023 Performed by Pete Silver MD at [facility] CERVICAL OR THORACIC EPIDURAL BLOCK WITH STEROIDS: C67 WU N/A 01/29/2018 Performed by Pete Silver MD at [facility] INJECTION LUMBAR OR SACRAL EPIDURAL BLOCK WITH STEROIDS: L45 WU N/A 10/15/2018 Performed by Pete Silver MD at [facility] MEDIAL BRANCH NERVE BLOCK: bilat L45 51 Bilateral 07/30/2018 Performed by Pete Silver MD at [facility] SPINE TRANSFORAMINAL: left C 5,6 Nroot Left 01/09/2023 Performed by Pete Silver MD at [facility] LAPAROSCOPIC CHOLECYSTECTOMY N/A 09/16/2016 Performed by Juan Ramon Jean MD at [facility] LIVER BIOPSY EMA PROCEDURE Right 05/15/2022 Performed by Chepe Ingram MD at [facility] NASAL SURGERY REPAIR HERNIA UMBILICAL 09/16/2016 Performed by Juan Ramon Jean MD at [facility] TONSILLECTOMY Allergies: Allergies Allergen Reactions Metformin [...] , Rfl: lancets (UNILET LANCET) 28 gauge [facility], Use to test BLOOD SUGAR TWICE DAILY, [...] on 04/28/2023), Disp: 30 tablet, Rfl: 0 nsnvobqz-jjsk-CB-calcium &mins (THERAGRAN-M) 9 mg iron-400 mcg tablet, [...] nipple: 25 Areolar Diameter: 4.5 6 Female precision grinder external present: yes. Impression : No diagnosis found. [...] We also discussed that breast size can loom changer the years with weight loss and weight [...] with the patient. Dwayne Khoury MD, PhD [facility] Total time spent was 30 minutes: Preparing to see the patient (e.g., review of tests) Obtaining and/or reviewing separately obtained history Performing a medically appropriate examination and/or evaluation Counseling and educating the patient/family/caregiver Ordering medications, tests, or procedures Referring and communicating with other health vp care management (not separately reported) Documenting clinical information in the electronic or other health record Independently interpreting results (not separately reported) and communicating results to the patient/family/caregiver Care coordination (not separately reported) Please note that portions of this note were generated using voice recognition Slack dictation software. Although every effort was made to ensure the accuracy of this automated soil fertility specialist, some errors in soil fertility specialist may have occurred. documented in this encounter [facility] [employer] [facility] 09-22-2023 History of Presen t illness [...] her next appt. documented in this encounter [facility] 08-26-2023 History of Presen t illness Narrative [facility] Daily Note Patient: Karma Candelaria : 1980 CSN #: [id number] Referring Physician: Shawna Mcfadden DO Date: 08/26/2023 Diagnosis: Z76.89 - Persons encountering health services in other specified circumstances Treatment Diagnosis: pain in cervical and LB Onset Date: 02/18/23 PT Insurance Information: [place] [employer] [facility] Total # of Visits Approved: [...] the cervical area and her LB area.-met Snf Goals Time Frame for Snf Goals : 6 visits Absorber Operator Goal 1: Pt will be independent and compliant with exercise while maintaining improved posture 50% of the time. Absorber Operator Goal 2: Pt will be able to perform full cervical ROM without increase complaints of baseline pain with initiation to demonstrate imporved control of pain. Snf Goal 3: Pt will report 40% improvement in overall complaints and improved tolerance to her job tasks. Minutes Tracking: Time In: 1430 Time Out: 1500 Minutes: 30 Timed Code Treatment Minutes: 29 Minutes Kofi Villegas PT, DPT Date: 08/26/2023 documented in this encounter [facility] 08-21-2023 History of Presen t illness Narrative Physical Therapy Disregard the no show note on 08/17. This was added in error. [facility] Daily Note Patient: Karma Candelaria : 1980 CSN #: [id number] Referring Physician: Shawna Mcfadden DO Date: 08/21/2023 Treatment Diagnosis: pain in cervical and LB Onset Date: 02/18/23 PT Insurance Information: [employer] Total # of Visits Approved: 24 Per [...] the cervical area and her LB area. Absorber Operator Goals Time Frame for Absorber Operator Goals : 6 visits Snf Goal 1: Pt will be independent and compliant with exercise while maintaining improved posture 50% of the time. Snf Goal 2: Pt will be able to perform full cervical ROM without increase complaints of baseline pain with initiation to demonstrate imporved control of pain. Snf Goal 3: Pt will report 40% improvement in overall complaints and improved tolerance to her job tasks. Absorber Operator Goal 4: Pt kvng UE strength will be 5/5 without increasing pain complaints to assist in tolerance of lifting and carrying. Minutes Tracking: Time In: 1045 Time Out: 1116 Minutes: 31 Timed Code Treatment Minutes: 29 Minutes Jan Olmstead PT, DPT Date: 08/21/2023 documented in this encounter [facility] 08-11-2023 History of Presen t illness Narrative [facility] Daily Note Patient: Karma Candelaria : 1980 CSN #: [id number] Referring Physician: Shawna Mcfadden DO Date: 08/11/2023 Diagnosis: Z76.89 - Persons encountering health services in other specified circumstances Treatment Diagnosis: pain in cervical and LB Onset Date: 02/18/23 PT Insurance Information: [employer] Plan Total # of Visits Approved: 24 [...] the cervical area and her LB area. Absorber Operator Goals Time Frame for Absorber Operator Goals : 6 visits Snf Goal 1: Pt will be independent and compliant with exercise while maintaining improved posture 50% of the time. Snf Goal 2: Pt will be able to perform full cervical ROM without increase complaints of baseline pain with initiation to demonstrate imporved control of pain. Snf Goal 3: Pt will report 40% improvement in overall complaints and improved tolerance to her job tasks. Snf Goal 4: Pt kvng UE strength will be 5/5 without increasing pain complaints to assist in tolerance of lifting and carrying. Minutes Tracking: Time In: 1330 Time Out: 1400 Minutes: 30 Timed Code Treatment Minutes: 28 Minutes Jan Olmstead PT, DPT Date: 08/11/2023 documented in this encounter [facility] 07-14-2023 History of Presen t illness Narrative Physical Therapy [facility] Inpatient/Observation/Outpatien t Rehabilitation Date: 07/14/2023 Patient Name: [...] does not require skilled services due to: Therapist/Surveying Crew Stake Runner will attempt to see this patient, at our earliest opportunity. Filomena Raphael Date: 07/14/2023 documented in this encounter [facility] 06-02-2023 History of Presen t illness [...] Year discontinued? N/a Are you of Ashkenazi Jehovah'S Witness decent? no Family history of cancer: relation [...] or lymphadenopathy. I reviewed notes from her commissary helper dated 05/05/2023, imaging including mammogram and ultrasound dated 03/16/2023 and 03/25/2023, history form dated 06/02/2023. Past Medical History Past Medical History: Diagnosis Date Anxiety Asthma Back pain Bipolar 1 disorder ([facility]) Breast disorder enlarged lymph nodes in both breast Carpal tunnel syndrome Chronic pain disorder Deep vein thrombosis ([facility]) blood clot in left arm Dental disease [...] night 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 ([facility]) 11/10/2017 Visual impairment Past Surgical History Past Surgical History: Procedure Laterality Date ANKLE SURGERY Left x2 ARTHROSCOPY SHOULDER WITH ROTATOR CUFF REPAIR Right 05/15/2022 Performed by Chepe Ingram MD at [facility] DEBRIDEMENT Right 05/15/2022 Performed by Chepe Ingram MD at [facility] DECOMPRESSION OF SUBACROMIAL SPACE WITH PARTIAL ACROMIOPLASTY Right 05/15/2022 Performed by Chepe Ingram MD at [facility] INJECTION BLOCK EPIDURAL STEROID LUMBAR/SACRAL: L 4/5 WU N/A 04/22/2021 Performed by Pete Silver MD at [facility] IN[facility] BLOCK SACROILIAC JOINT Left 03/27/2023 Performed by Pete Silver MD at [facility] CERVICAL OR THORACIC EPIDURAL BLOCK WITH STEROIDS: C67 WU N/A 01/29/2018 Performed by Pete Silver MD at [facility] LUMBAR OR SACRAL EPIDURAL BLOCK WITH STEROIDS: L45 WU N/A 10/15/2018 Performed by Pete Silver MD at [facility] INJECTION MEDIAL BRANCH NERVE BLOCK: bilat L45 51 Bilateral 07/30/2018 Performed by Pete Silver MD at [facility] INJECTION SPINE TRANSFORAMINAL: left C 5,6 Nroot Left 01/09/2023 Performed by Pete Silver MD at [facility] LAPAROSCOPIC CHOLECYSTECTOMY N/A 09/16/2016 Performed by Juan Ramon Jean MD at [facility] LIVER BIOPSY EMA PROCEDURE Right 05/15/2022 Performed by Chepe Ingram MD at [facility] NASAL SURGERY REPAIR HERNIA UMBILICAL 09/16/2016 Performed by Juan Ramon Jean MD at [facility] TONSILLECTOMY Family History Family History [...] 5 blood-glucose meter (TRUE METRIX GLUCOSE METER) [facility], use to test BLOOD SUGAR TWICE DAILY, [...] , Rfl: lancets (UNILET LANCET) 28 gauge [facility], Use to test BLOOD SUGAR TWICE DAILY, [...] on 04/28/2023), Disp: 30 tablet, Rfl: 0 qhrriymq-ocwh-GO-calcium &mins (THERAGRAN-M) 9 mg iron-400 mcg tablet, [...] a bilateral screening mammogram on 03/16/2023 through [facility]. Her breast tissue is almost entirely fatty. There was a 1 cm mass in the posterior upper-outer right breast 17 cm from the nipple. They thought this was likely a lymph node but recommended that she return for additional imaging. She had the imaging done in [place]. They did a right diagnostic mammogram and [...] with any concerns. documented in this encounter [facility] 05-12-2023 Miscellaneous Notes Spoke with patient and scheduled with Dr. Robledo 4/2. Patient voiced understanding of appointment details. Patient was offered sooner dates but declined per her availability. documented in this encounter [facility] 05-12-2023 Telephone encounter Note Spoke with patient and scheduled with Dr. Robledo 4/2. Patient voiced understanding of appointment details. Patient was offered sooner dates but declined per her availability. [facility] 04-30-2023 Miscellaneous Notes Last Office Visit: 04/28/2023 Next Office Visit: Visit date not found Last Urine Drug Screen: No results found for: BENZOSCRN OARRS appropriate documented in this encounter [facility] 04-30-2023 Telephone encounter Note Last Office Visit: 04/28/2023 Next Office Visit: Visit date not found Last Urine Drug Screen: No results found for: BENZOSCRN OARRS appropriate [facility] 04-28-2023 History of Presen t illness Narrative [facility] [address] [place] [address] Patient: Karma Banegas Sex: female : 1980 [...] (09/2022 last visit for 11/05/22) at [facility] with no relief Back: 10/15/18 L4/5 [...] Anxiety Asthma Back pain Bipolar 1 disorder ([facility]) Breast disorder enlarged lymph nodes in both breast Carpal tunnel syndrome Chronic pain disorder Deep vein thrombosis ([facility]) blood clot in left arm Dental disease [...] night 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 ([facility]) 11/10/2017 Visual impairment Past Surgical History: Procedure Laterality Date ANKLE SURGERY Left x2 ARTHROSCOPY SHOULDER WITH ROTATOR CUFF REPAIR Right 05/15/2022 Performed by Chepe Ingram MD at [facility] DEBRIDEMENT Right 05/15/2022 Performed by Chepe Ingram MD at [facility] DECOMPRESSION OF SUBACROMIAL SPACE WITH PARTIAL ACROMIOPLASTY Right 05/15/2022 Performed by Chepe Ingram MD at [facility] INJECTION BLOCK EPIDURAL STEROID LUMBAR/SACRAL: L 4/5 WU N/A 04/22/2021 Performed by Pete Silver MD at [facility] INJECTION BLOCK SACROILIAC JOINT Left 03/27/2023 Performed by Pete Silver MD at [facility] CERVICAL OR THORACIC EPIDURAL BLOCK WITH STEROIDS: C67 WU N/A 01/29/2018 Performed by Pete Silver MD at [facility] LUMBAR OR SACRAL EPIDURAL BLOCK WITH STEROIDS: L45 WU N/A 10/15/2018 Performed by Pete Silver MD at [facility] MEDIAL BRANCH NERVE BLOCK: bilat L45 51 Bilateral 07/30/2018 Performed by Pete Silver MD at [facility] INJECTION SPINE TRANSFORAMINAL: left C 5,6 Nroot Left 01/09/2023 Performed by Pete Silver MD at [facility] LAPAROSCOPIC CHOLECYSTECTOMY N/A 09/16/2016 Performed by Juan Ramon Jean MD at [facility] LIVER BIOPSY EMA PROCEDURE Right 05/15/2022 Performed by Chepe Ingram MD at [facility] NASAL SURGERY REPAIR HERNIA UMBILICAL 09/16/2016 Performed by Juan Ramon Jean MD at [facility] TONSILLECTOMY Allergies Allergen Reactions Metformin Severe hypoglycemia [...] Hodge 04/30/23 1141 documented in this encounter [facility] 04-28-2023 Instructions Peg Conrad CNA - [...] nearest emergency room. documented in this encounter [facility] 04-20-2023 Hospital Discharg e instructions Precious Urbina APRN - CNP - 04/20/2023 1:50 PM EST Increase fluid Tylenol Motrin for cough Continue home medications The following attachments cannot be sent through Care Everywhere.Head Injury: Closed: General Info (Gambian)Cervical Strain (Gambian)documented in this encounter [facility] 03-31-2023 Miscellaneous Notes Patient calls today [...] medications prescribed to someone other than her. Refinery Operator [employer] reiterated this to patient. Patient's pharmacy was confirmed with her. Order pended for review and signature. documented in this encounter [facility] 03-31-2023 Telephone encounter Note Patient calls [...] are prescribed to someone other than her. [facility] 03-31-2023 Telephone encounter Note Is she still taking prozac? What dosage? Any other antidepressants? [facility] 03-31-2023 Telephone encounter Note Call placed to patient to confirm whether or not she is taking Prozac or other antidepressants. Patient states she is taking 40 mg Prozac daily. That is the only antidepressant that she takes. She is prescribed Latuda and Lamictal to treat Bipolar. [facility] 03-31-2023 Telephone encounter Note Can try cymbalta 30mg once daily [facility] 03-31-2023 Telephone encounter Note Call placed to patient to inform her of provider's response. Patient is also educated not to take medications that are prescribed to someone other than her. Patient voices that she is aware that she should not be taking medications prescribed to someone other than her. Refinery Operator [employer] reiterated this to patient. Patient's pharmacy was confirmed with her. Order pended for review and signature. [facility] 03-05-2023 Evaluation note Encounter Date Diagnosis Assessment [...] was counseling done by myself, Rhina ROBERTSON. [employer] [facility] 01-01-2024 Hospital Discharge instructions* Discharge Instructions* Sil Sullivan DO - 03/02/2023 7:49 PM EST Please follow-up with your GI doctor, trial enema at home, return to the ER for worsening abdominalpain, inability to pass gas, or nausea, vomiting * Attachments The following attachments cannot be sent through Care Everywhere. * Const[facility] (Gambian) [facility]iscellaneous Notes* Telephone Encounter - Argenis [...] when she was under his care in [place]. She is currently taking Meloxicam that helps [...] whatever . [facility] encounter Note* Telephone Encounter - [...] when she was under his care in [place]. She is currently taking Meloxicam that helps [...] add Dr. Silver on the note. PVU. [employer]12-22-2023 Telephone encounter Note* Telephone Encounter - Pete Silver MD - 02/20/2023 10:04 AM EST Discussed with nurse, I agree with Fartun's treatment plan going forward. [employer]12-22-2023 Telephone encounter Note* Telephone Encounter - UMESH Hodge - 02/20/2023 10:04 AM EST No Rx for tramadol. I have never written prescription for bra so I would not know how to proceed with anything like that. [employer]12-22-2023 Telephone encounter Note* Telephone Encounter - Argenis Storm RN - 02/20/2023 10:04 AM EST Patient aware of response. She states whatever . [facility] [employer]12-20-2023 Evaluation note* Encounter Date Diagnosis Assessment Notes Treatment Notes Treatment Clinical Notes Jan, Constipation, unspecified constipation type (ICD-10 - K59.00) Jan, Constipation (ICD-10 - K59.00) [facility] 12-12-2023 Miscellaneous Notes* Telephone Encounter - [...] [facility] Note* Telephone Encounter - [...] related to sacroiliac joint. [facility]12-12-2023 Telephone encounter Note* Telephone Encounter - [...] sufficient reason to deny the current request. [facility]12-12-2023 Telephone encounter Note* Telephone Encounter - Alfredito William - 02/10/2023 8:18 AM EST GOT APPROVAL [facility] [id number] Telephone encounter Note* Telephone Encounter - Maty Fulton RN - 02/10/2023 8:18 AM EST Pt is scheduled 03/27 for procedure and has f/u appt [facility] [id number] Evaluation note* Encounter Date Diagnosis Assessment Notes [...] R10.9) Jan, Rectal bleed (ICD-10 - K62.5) [facility] 11-16-2023 Evaluation note* Encounter Date Diagnosis [...] was counseling done by myself, Rhina Scally [employer]USEUM DOCENT-C. [facility] 11-08-2023 Evaluation note* Encounter Date Diagnosis [...] HAVE PATIENT START DOCUSATE 3 CAPSULES DAILY. [facility] 06-29-2023 Evaluation note* Encounter Date Diagnosis Assessment Notes Treatment Notes Treatment Clinical Notes Jul, Obesity (ICD-10 - E66.9) Jul, BMI 34.0-34.9,adult (ICD-10 - Z68.34) Jul, Other Summary of Visi t: (A) discussed continuing to work on small goals until stress decreases and she has the energy to increase goals (B) discussed healhtier choices at [employer]- food blog reviewed (C) reviewed food storage tips for keeping produce fresh longer Patient set the following goals: - NEW: continue to choose sugar free beverages- not reviewed [facility] [facility] 05-30-2023 Evaluation note* Encounter Date Diagnosis [...] was counseling done by myself, Rhina ROBERTSON. [employer] [facility] 03-21-2023 Evaluation note* Encounter Date Diagnosis [...] was counseling done by myself, Rhina ROBERTSON. [employer] [facility] 02-07-2023 Evaluation note* Encounter Date Diagnosis [...] set the following goals: not reviewed today [employer] [facility] 02-07-2023 Evaluation note* Encounter Date Diagnosis [...] was counseling done by myself, Rhina ROBERTSON. [employer] [facility] 12-28-2022 Evaluation note* Encounter Date Diagnosis [...] patient set personal goal using given handout. [employer] [facility] 12-27-2022 Evaluation note* Encounter Date Diagnosis [...] was counseling done by myself, Rhina ROBERTSON. [employer] [facility] 12-01-2022 NotePROCEDURE: XR ANKLE LT MIN [...] Electronically authenticated by: ONEL CLARK Date: 2022-01-29 22:30[facility]12-01-2022 NotePROCEDURE: XR ANKLE LT MIN 3 V, [...] Electronically authenticated by: ONEL CLARK Date: 2022-01-29 22:30[facility]11-15-2022 Evaluation note* Encounter Date Diagnosis Assessment Notes [...] was counseling done by myself, Rhina ROBERTSON. [employer] [facility] 10-05-2022 Evaluation note* Encounter Date Diagnosis [...] was counseling done by myself, Rhina ROBERTSON. [employer] [facility] 08-30-2022 Evaluation note* Encounter Date Diagnosis Assessment Notes Treatment Notes Treatment Clinical Notes Sep, Fatty liver (ICD-10 - K76.0) ENCOURAGED WEIGHT LOSS Sep, Obesity (BMI 30-39.9) (ICD-10 - E66.9) [facility] 08-23-2022 Hospital Discharge instructions* Discharge Instructions* Stanley Almonte PA-C - 10/22/2021 2:03 PM EDT Follow-up with primary care doctor 7 to 10 days for reevaluation. Take Motrin 800 mg as directed with food. Start eardrops left ear as directed. Promptly return to emergency department for new, changing or worsening of symptoms or other concerns. [facility] [employer] Work Phone: evaluation + Plan note No data available for this section [facility] Diagnosis Pilonidal cyst- Primary Pilonidal cyst without mention of abscess documented in this encounter [facility] [employer] Work Phone: [email or web address] note* Diagnosis Acute diffuse otitis externa of left ear- Primary documented in this encounter [facility] [employer] Work Phone: evalafjbee noteNo [employer] Other evaluation note* Diagnosis Constipation, unspecified constipation type- Primary documented in this encounter [facility] [employer] [place] noteNo assessment information available [facility] Work Phone: evaluation note* Diagnosis Closed head injury, initial encounter- Primary Fall due to slipping on ice or snow, initial encounter Acute cervical myofascial strain, initial encounter documented in this encounter [facility] [employer] [place] note* Diagnosis Lumbosacral spondylosis without myelopathy- Primary documented in this encounter [facility] SystemEvaluation note* Diagnosis Mass of upper outer quadrant of right breast- Primary Abnormal mammogram Abnormal mammogram, unspecified Symptomatic mammary hypertrophy documented in this encounter [facility] SystemEvaluation note* Diagnosis Onset Date Resolution Status ADHD acute BMI 36.0-36.9,adult acute Constipation acute Diabetes mellitus with hyperglycemia acute Fatty liver acute IBS (irritable bowel syndrome) acute Obesity acute Shifting sleep-work schedule, affecting sleep acute Constipation acute Elevated liver function tests acute Fatty liver acute IBS (irritable bowel syndrome) acute [facility] Work Phone: evaluidoqu note* Diagnosis Dizziness- Primary Dizziness and giddiness documented in this encounter [facility] [employer] note* Diagnosis Macromastia- Primary Hypertrophy of breast documented in this encounter [facility] SystemEvaluation note* Diagnosis JADON (obstructive sleep [...] Surgical History CHOLECYSTECTOMY Hospitalization History SEE ABOVE [employer] [facility] [employer] general Narrative - Reported* Type Description Date Medical History PTSD Medical History DIVERTICULITOUS Medical History bipolar Medical History ADHD Surgical History 2 BACK INJECTIONS 2014 Surgical History LEFT ANKLE 2002 Surgical History CHOLECYSTECTOMY Surgical History nasal surgery Hospitalization History SEE ABOVE [employer] [facility] [employer] general Narrative - Reported* Type Description Date Medical History PTSD Medical History DIVERTICULITOUS Medical History bipolar Medical History ADHD Surgical History 2 BACK INJECTIONS 2014 Surgical History LEFT ANKLE 2001 Surgical History CHOLECYSTECTOMY Surgical History nasal surgery Surgical History right Rotator surgery 05-15-22 Hospitalization History SEE ABOVE [employer] Other [employer] general Narrative - Reported* Type Description Date Medical History PTSD Medical History DIVERTICULITOUS Medical History bipolar Medical History ADHD Medical History rotator cuff tear Surgical History 2 BACK INJECTIONS 2014 Surgical History LEFT ANKLE 2002 Surgical History CHOLECYSTECTOMY Surgical History nasal surgery Surgical History right Rotator surgery 05-15-22 Hospitalization History SEE ABOVE [employer] Other [employer] general Narrative - Reported* Type Description Date Medical History PTSD Medical History DIVERTICULITOUS Medical History bipolar Medical History ADHD Medical History rotator cuff tear Surgical History 2 BACK INJECTIONS 2014 Surgical History LEFT ANKLE 2001 Surgical History CHOLECYSTECTOMY Surgical History nasal surgery Surgical History right Rotator surgery 05-15-22 Surgical History Neck injections/root burnt 12/31 Hospitalization History SEE ABOVE [employer] Other [employer] general Narrative - Reported* Type Description Date Medical History PTSD Medical History DIVERTICULITOUS Medical History bipolar Medical History ADHD Medical History rotator cuff tear Surgical History 2 BACK INJECTIONS 2014 Surgical History LEFT ANKLE 2001 Surgical History CHOLECYSTECTOMY Surgical History nasal surgery Surgical History right Rotator surgery 05-15-22 Surgical History Neck injections/root burnt 12/31 Hospitalization History SEE ABOVE Hospitalization History [facility]- c onstipation 03-02-2023 [facility] Other Hospital Discharge instructions* Attachments The following attachments cannot be sent through Care Everywhere. * Pilonidal Abscess (Gambian) documented in this encounterBON [employer] [facility] [employer] Work Phone: Hospital Discharge instructions No data available for this section [facility] SystemInstructionsNot on filedocumented in this encounter [facility]ructionsNot on filedocumented in this encounter [facility] SystemInstructionsNot on filedocumented in this encounter [facility] SystemInstructionsNot on filedocumented in this encounter [facility] SystemInstructionsNot on filedocumented in this encounter [facility] SystemInstructionsNot on filedocumented in this encounter [facility] SystemProgress note No data available for this section [facility] SystemReason for referral (narrative)* Consultation (Routine) - Pending Review Specialty Diagnoses / Procedures Referred By Karla cuadra Referred To Contact Otolaryngology Diagnoses JADON (obstructive sleep apnea) Procedures [place] OFFICE/OUTPATIENT NEW HIGH MDM 60 MINUTES Brittany Neville NP [address] [facility] [address] [place] [address] Referral ID Status Reason Start Date Expiration Date Visits Requested Visits Authorized [id number] Pending Review Specialty Services Required 11/30/2023 05/28/2024 [address] Brito for Inspire device. NATALIIA Craven for visit Narrative* Consultation (Routine) - Pending Review Specialty Diagnoses / Procedures Referred By Karla cuadra Referred To Contact Breast Surgery Diagnoses Abnormal mammogram Carmen Fisher MD [address] [place] [address] Ila Trevizo MD [address] [place] [phone] Referral ID Status Reason Start Date Expiration Date V isits Requested Visits Authorized [id number] Pending Review 05/06/2023 05/05/2024 [address] [facility] Summary Purpose Family History No Family [...] PA [address], [address] [place] [address] Referral ID Status Reason Start Date Expiration Date V isits Requested Visits Authorized [id number] Pending Review 04/28/2023 04/27/2024 1 1 Chief [...] section and content) DATE CREATED AUTHOR 08/26/2017 [facility] DATE CREATED AUTHOR AUTHOR'S ORGANIZ ATION 05/30/2022 [facility] pital DATE CREATED AUTHOR AUTHOR'S ORGANIZ ATION 01/18/2023 [facility] DATE CREATED AUTHOR AUTHOR'S ORGANIZ ATION 06/04/2023 [facility] DATE CREATED AUTHOR AUTHOR'S ORGANIZ ATION 10/10/2023 [facility] DATE CREATED AUTHOR AUTHOR'S ORGANIZ ATION 11/30/2023 [facility] dical Specialists [facility] DATE CREATED AUTHOR AUTHOR'S ORGANIZ ATION 12/22/2023 [facility] DATE CREATED AUTHOR AUTHOR'S ORGANIZ ATION 02/05/2024 [facility] DATE CREATED AUTHOR AUTHOR'S ORGANIZ ATION 02/12/[address] [facility] DATE CREATED AUTHOR AUTHOR'S ORGANIZ ATION 03/15/2024 [facility] Reason for Visit (unrecogniz ed [...] Dispensed Refills Start Date End Da te meggjdra-spluhfagz-nhtnxt ortisone (CORTISPORIN) 3.5-73770-[address] 4 drops into the [...] Care Teams (unrecognized sec tion and content) Lifter Driver Relationship Specialty Start Date End Date Shawna Mcfadden DO [address] [place], [place] [id number] PCP - General Family Medicine 10/12/21 Lifter Driver Relationship Specialty Start Date End Date Shawna Mcfadden DO [address] [place] [address] PCP - General Family Medicine 10/12/21 Lifter Driver Relationship Specialty Start Date End Date Shawna Mcfadden DO [address] [place] [address] PCP - General Family Medicine 10/12/21 Lifter Driver Relationship Specialty Start Date End Date Shawna Mcfadden DO [address] [place] [address] PCP - General Family Medicine 05/02/22 Lifter Driver Relationship Specialty Start Date End Date Shawna Mcfadden DO [address] [place] [address] PCP - General Family Medicine 10/12/21 Lifter Driver Relationship Specialty Start Date End Date Shawna Mcfadden DO [address] [place] [address] PCP - General Family Medicine 05/02/22 Team [...] Care Provider Active Start: March 18, 2023 Lifter Driver Relationship Specialty Start Date End Date Shawna Mcfadden DO [address] [facility] [place] [address] PCP - General Family Medicine 05/02/22 Lifter Driver Relationship Specialty Start Date End Date Shawna Mcfadden DO [address] [facility] [place] [address] PCP - General Family Medicine 10/12/21 Lifter Driver Relationship Specialty Start Date End Date Shawna Mcfadden DO [address] [facility] [place] [address] PCP - General Family Medicine 05/02/22 Lifter Driver Relationship Specialty Start Date End Date Shawna Mcfadden DO [address] [place] [address] PCP - General Family Medicine 10/12/21 Lifter Driver Relationship Specialty Start Date End Date Shawna Mcfadden Rena [address] [place] [address] PCP - General Family Medicine 05/02/22 Lifter Driver Relationship Specialty Start Date End Date Shawna Mcfadden [address] [place] [id number] PCP - General Family Medicine 05/02/22 Team Status: Active Member Role Status Dates Rory Driver , [facility]- Primary Care Provider Active Team Status: Inactive Member Role Status Dates Gayathri Adams APRN Attending Provider Active Start: May 21, 2023 End: May 21, 2023 Rory Driver , [facility] Primary Care Provider Active Start: May 21, 2023 End: May 21, 2023 Team Status: Inactive Member Role Status Dates Jan Garg APRN Attending Provider Active Start: May 21, 2023 End: May 21, 2023 Rory Driver , [facility] Primary Care Provider Active Start: May 21, 2023 End: May 21, 2023 Lifter Driver Relationship Specialty Start Date End Date Shawna Mcfadden DO [address] [place] [address] PCP - General Family Medicine 10/12/21 Lifter Driver Relationship Specialty Start Date End Date Shawna Mcfadden DO [address] [place], [place] [id number] PCP - General Family Medicine 10/12/21 Lifter Driver Relationship Specialty Start Date End Date Loreto Mcneal APRN - GULLET [employer] [address] [place] [address] PCP - General 11/11/23 Lifter Driver Relationship Specialty Start Date End Date Loreto Mcneal APRN - NP [address] [facility] [address] PCP - General 11/11/23 Lifter Driver Relationship Specialty Start Date End Date Loreto Mcneal APRN - NP [address] [facility] [place] [address] PCP - General 11/11/23 Lifter Driver Relationship Specialty Start Date End Date [facility] [address] [place], [place] PCP - General Family Medicine 10/05/23 Lifter Driver Relationship Specialty Start Date End Date Loreto Mcneal APRN - NP [address] [facility] [place] [address] PCP - General 11/11/23 Lifter Driver Relationship Specialty Start Date End Date Shawna Mcfadden DO [address] [place] [address] PCP - General Family Medicine 04/14/22 Key Andrea NP [address] [place] [address] Referring Physician Family Medicine 08/13/23 Lifter Driver Relationship Specialty Start Date End Date Key Andrea NP [address] [place] [address] Referring Physician Family Medicine 08/13/23 Lifter Driver Relationship Specialty Start Date End Date Key Andrea NP [address] [place] [address] Referring Physician Family Medicine 08/13/23 Lifter Driver Relationship Specialty Start Date End Date Key Andrea NP [address] [place] [address] Referring Physician Family Medicine 08/13/23 Lifter Driver Relationship Specialty Start Date End Date Shawna Mcfadden DO [address] [place] [address] PCP - General Family Medicine 04/14/22 Key Andrea NP [address] [place], [place] [phone] Referring Physician Family Medicine 08/13/23 Team Status: Inactive Member Role Status Dates Rory Driver [facility] Primary Care Provider Active Start: January 21, 2024 End: January 21, 2024 MELE Best Attending Provider Active Start: January 21, 2024 End: January 21, 2024 Team Status: Inactive Member Role Status Dates Rory Driver [facility] Primary Care Provider Active Start: March 09, [...] BE BASED ON THE PRIMARY CLINICAL RECORDS. [employer] [facility]. provides no warranty or guarantee of the accuracy or completeness of information in this document.
== END 2024-03-31 18:48 | disposition home or self-care (01) ==
PROVIDERS: Physician Assistant; Emergency Provider Emergency Medicine; PCP Nurse Practitioner Family
DX: J06.9 Acute upper respiratory infection, unspecified (principal); R05.9 Cough, unspecified; Z86.16 Personal history of COVID-19
CPT/HCPCS: 36415; 71045; 80053; 83880; 84484; 85025; 85378; 87804; 87811; 93005; 96374; 99285; J2919

== ENCOUNTER 2024-04-05 08:48 | Outpatient (OUT) | payer OTHER, SELFPAY ==
--- NOTE | 2024-04-05 08:51 | MR_ITS ---
The [address] [address] Patient Name: PEE WHITEHEAD MRN: [facility]:[id number] date: 1980 Sex: F Assigned Patient Location: MRI Current Patient Location: MRI Accession/Order Number: [id number] Exam Date: 04/05/2024 08:57 Report Date: 04/05/2024 15:21 At the request of: MILE ANDERSON Procedure: MR cervical spine wo con EXAM: MR cervical spine wo con REASON FOR EXAM: Cervical Radiculopathy. TECHNIQUE: Multiplanar, multisequence imaging of the cervical spine was performed without contrast COMPARISON: Radiographs 03/21/2024, correlated with prior MRI report 07/09/2015, images unavailable. FINDINGS: Study mildly degraded by motion. Limited evaluation the posterior fossa is unremarkable. The visualized spinal cord demonstrates normal caliber and signal. Straightening normal cervical lordosis. Vertebral body heights and facet alignments are maintained. Probable hemangioma are noted in the C6 and C7 vertebral bodies. No acute or aggressive osseous abnormality is evident. There is also probable hemangioma in the T3 vertebral body. Limited evaluation of the paravertebral soft tissues is without acute abnormality. Bilateral subcentimeter thyroid nodules are present. C2-C3: No focal disc herniation identified. No spinal canal or neural foraminal stenosis. C3-C4: No focal disc herniation identified. No spinal canal or neural foraminal stenosis. C4-C5: Minimal broad-based disc bulge without spinal canal stenosis. No neural foraminal stenosis. C5-C6: Diffuse broad-based disc bulge with a probable superimposed left paracentral disc extrusion with inferior migration. Mild to moderate spinal canal stenosis. Moderate bilateral neural foraminal stenosis, left greater than right secondary to broad-based disc bulge and facet arthropathy. C6-C7: Minimal broad-based disc bulge without spinal canal stenosis. No neural foraminal stenosis. C7-T1: No focal disc herniation identified. No spinal canal stenosis. Mild bilateral neural foraminal stenosis, right greater than left secondary to uncovertebral degeneration facet arthropathy. MR/MR cervical spine wo con IMPRESSION: 1. Mild to moderate multilevel degenerative disc disease and facet arthropathy, most significant at the C5-C6 level as described above. Electronically authenticated by: JENNIFER NOEL Date: 04/05/2024 15:21
== END 2024-04-05 08:49 | disposition home or self-care (01) ==
LOC: MRI 08:48
PROVIDERS: PCP Nurse Practitioner Family; Visit Provider Nurse Practitioner
DX: M54.12 Radiculopathy, cervical region (principal); M50.30 Other cervical disc degeneration, unspecified cervical region
CPT/HCPCS: 72141

== ENCOUNTER 2024-04-06 11:00 | Outpatient (OUT) | payer OTHER, SELFPAY ==
--- NOTE | 2024-04-06 11:06 | XR_ITS ---
The [address] [address] Patient Name: PEE WHITEHEAD MRN: [id number] date: 1980 Sex: F Assigned Patient Location: [facility] Current Patient Location: ED.MAIN Accession/Order Number: [id number] Exam Date: 04/06/2024 11:15 Report Date: 04/08/2024 11:28 At the request of: JOY ARAMBULA Procedure: XR foot LT min 3V PROCEDURE: XR ankle LT min 3V, XR foot LT min 3V COMPARISON: 10/18/2023 HISTORY: Left Ankle And Foot Pain FINDINGS: BONES:Contour deformity of the distal tibia and fibula consistent with remote healed fractures. Moderate degenerative changes of the tibiotalar joint. No acute fracture or dislocation. SOFT TISSUES:Negative. No visible soft tissue swelling. EFFUSION:None visible. OTHER: Negative. XR/XR foot LT min 3V IMPRESSION: Stable chronic posttraumatic changes No acute abnormality of the foot or ankle Electronically authenticated by: DOMENICA SCHMIDT Date: 04/08/2024 11:28
--- NOTE | 2024-04-06 11:06 | XR_ITS ---
The [address] [address] Patient Name: PEE WHITEHEAD MRN: [id number] date: 1980 Sex: F Assigned Patient Location: [facility] Current Patient Location: ED.MAIN Accession/Order Number: [id number] Exam Date: 04/06/2024 11:15 Report Date: 04/08/2024 11:28 At the request of: JOY ARAMBUAL Procedure: XR ankle LT min 3V PROCEDURE: XR ankle LT min 3V, XR foot LT min 3V COMPARISON: 10/18/2023 HISTORY: Left Ankle And Foot Pain FINDINGS: BONES:Contour deformity of the distal tibia and fibula consistent with remote healed fractures. Moderate degenerative changes of the tibiotalar joint. No acute fracture or dislocation. SOFT TISSUES:Negative. No visible soft tissue swelling. EFFUSION:None visible. OTHER: Negative. XR/XR ankle LT min 3V IMPRESSION: Stable chronic posttraumatic changes No acute abnormality of the foot or ankle Electronically authenticated by: DOMENICA SCHMIDT Date: 04/08/2024 11:28
--- OUTSIDE RECORDS SUMMARY | 2024-04-06 11:08 | XMS_ITS | CCD ---
Author Organization [facility] CliniSyde Care Team Providers Care Pediatric Associate Name Role Phone Juan Ramon Jean Unavailable [...] able RUMSCHLAG, SHAWNA K Referring Unavailable SERVICES, [facility] Care Unava ilable Fredis WARD ATTENDANT - AUTOMATIC TYPEWRITER INSPECTOR, Loreto Primary Care [facility] ider LULY ENGLISH Attending Unavailable GABY JUNE Attending Unavailable ROEL GARBER Attending Unavailable LAILA LIEBERMAN Attending Unavailable BRITATNY NEVILLE Attending Unavailable SERVICES, [facility] Primary Care Unava ilable SHAMMO, RORY Referring Unavailable RUMSCHLAG, SHAWNA K Primary Care Unavailable SHAMMO, RORY Referring Unavailable RUMSCHLAG, SHAWNA K Primary Care Unavailable PETE SILVER Attending Unavailable PETE SILVER Referring Unavailable RUMSCHLAG, SHAWNA K Primary Care Unavailable PETE SILVER Admitting Unavailable SILVERPETE Attending Unavailable RUMSCHLAG, SHAWNA K Referring Unavailable RUMSCHLAG, SHAWNA K Primary Care Unavailable JORGE, CARMEN Referring Unavailable SERVICES, [facility] Primary Care Unava ilable GAURAV SELLERS Attending Unavailable RUMSCHLAG, SHAWNA K Referring Unavailable RUMSCHLAG, SHAWNA K Primary Care Unavailable Services, [facility] Primary Care Provider Bk DALE, Ugo Stoddard [...] Care Unavailable RUMSCHLAG, SHAWNA Referring Unavailable Zully AUTOMATIC TYPEWRITER INSPECTOR, Key Unavailable Shawna Mcfadden DO Primary Care Provider [place] ACCOUNTANT PROPERTY-BCRory T Primary Care Provider Mio Marroquin DO [...] (antibiotic) (2 sources) Cephalexin Drug Allergy 7 [facility] Serotonin Reuptake Inhibitors (SSRIs) (2 sources) Citalopram Drug Allergy 7 [facility] (20 sources) cephalexin; Translations: [Keflex] Drug Allergy 3 [facility] Repository (4 sources) citalopram; Translations: [CeleXA] Drug Allergy 3 AOF, heart palpitation [facility] Repository (20 sources) Cephalexin; Translations: [CEPHALEXIN] Drug Allergy 4 [facility] Work Phone: (20 sources) Citalopram; Translations: [CITALOPRAM] Drug Allergy 4 Hives, anaphylaxis [facility] (5 sources) metFORMIN Drug Allergy Unknown PEX Card Other (20 sources) metFORMIN; Translations: [METFORMIN] Drug Allergy 3 Unknown, Unknown Reaction [facility] Comment on above: bottoms out to unde r 40 (17 sources) POISON DEVORAH EXTRACT; Translations: [POISON DEVORAH EXTRACT] Drug Allergy 3 [facility] (19 sources) Metformin And Related Propensity to adverse reactions to drug 4 Other (See Comments) [facility] (1 source) Cephalexin Drug Allergy 4 [facility] Repository (1 source) Citalopram Drug Allergy 4 [facility] (1 source) metFORMIN Drug Allergy 4 [facility] Medications Current Medications Medication Drug Class(es) Dates Sig (Normalized) Sig (Original) [id number] 200 actuat albuterol 0.09 mg/actuat metered dose [...] Orally Once a day Active bifidobacterium animalis [id number] unt / lactobacillus acidophilus 55227295445 unt oral capsule (5 sources) take 1 [...] / neomycin 3.5 mg/ml / polymyxin b 66559 unt/ml otic solution (1 source) Aminoglycoside Antibacterial, Polymyxin-class Antibacterial, Corticosteroid Start: 10-22-2021 End: 10-29-2021 egggumyn-vfkyptzqd-tvizeryks isone (CORTISPORIN) 3.5-52385-[address] 4 drops into the [...] by mouth in the morning. 12/26/2022 Active cxhpeucp-auej-BU-c alcium &mins (THERAGRAN-M) 9 mg iron-400 mcg tablet (8 sources) wiydwwxt-qpzz-XO -c alcium &mins (THERAGRAN-M) 9 mg iron-400 mcg tablet Take 1 tablet by mouth in the morning. Active oslxwxar-ijiw-QI -calcium &mins (THERAGRAN-M) 9 mg iron-400 mcg [...] 3 times a day 0 Active nystatin 380984 unt/ml topical cream (6 sources) Polyene Antifungal [...] 30 days Jan, Active polyethylene glycol 3350 395582 mg / potassium chloride 2970 mg / sodium bicarbonate 6740 mg / sodium chloride 5860 mg / sodium sulfate 87640 mg powder for oral solution (2 sources) [...] Nausea, # 20 tab(s), Refills(s) 0, Pharmacy: [id number], 157, cm, 03/10/19 12:21:00 EST, [...] Start: 05-21-2023 take 2 tablets by mo [facility] once daily at bedtime Tizanidine 4 mg [...] Status: Ordered take 2 tablets by mo [facility] every twenty-four hours tiZANidine HCl 4 MG [...] May 21, 2023 11:36am polyethylene glycol 3350 74068 mg powder for oral solution (7 sources) [...] Beta Streptococcus Isolated 2 Days PERFORMED BY: [place] [address] PATHOLOGIST COMB WINDER DALIA SEARS M.D. Normal [facility] Comment on above: Performed By: #### C USTA #### [address] CBC with Auto Differentialon 01-13-2024 Basophils (Bld) [#/Vol] 0.06 10*3/uL [facility] Basophils/100 WBC (Bld) 0 % 0 - 2 % [facility] Eosinophils (Bld) [#/Vol] 0.10 10*3/uL [facility] Eosinophils/100 WBC (Bld) 1 % 1 - 4 % [facility] Erythrocyte distribution width (RBC) [Ratio] 13.6 % 11.8 - 14.4 % [facility] Hematocrit (Bld) [Volume fraction] 43.3 % 36.3 - 47.1 % [facility] Hemoglobin (Bld) [Mass/Vol] 14.0 g/dL 11.9 - 15.1 g/dL [facility] Immature granulocytes (Bld) [#/Vol] 0.10 10*3/uL [facility] Immature granulocytes/100 WBC (Bld) 1 % High 0 [facility] Interpretation and review of laboratory results Abnormal [facility] Lymphocytes/100 WBC (Bld) 22 % Low 24 - 43 % [facility] Lymphocytes/100 WBC (Bld) 2.98 % [facility] MCH (RBC) [Entitic mass] 28.5 pg 25.2 - 33.5 pg [facility] MCHC (RBC) [Mass/Vol] 32.3 g/dL 28.4 - 34.8 g/dL [facility] MCV (RBC) [Entitic vol] 88.2 fL 82.6 - 102.9 fL [facility] Monocytes/100 WBC (Bld) 8 % 3 - 12 % [facility] Monocytes/100 WBC (Bld) 1.12 % [facility] Neutrophils/100 WBC (Bld) 68 % High 36 - 65 % [facility] Nucleated RBC/100 WBC (Bld) [Ratio] 0.0 % 0.0 per 100 WBC [facility] Platelet mean volume (Bld) [Entitic vol] 10.0 fL 8.1 - 13.5 fL [facility] Platelets (Bld) [#/Vol] 452 10*3/uL [facility] RBC (Bld) [#/Vol] 4.91 10*6/uL 3.95 - 5.11 m/uL [facility] Segmented neutrophils/100 WBC (Bld) 9.08 % High [facility] WBC other (Bld) [#/Vol] 13.4 High [facility] CBC with Diffon 01-13-2024 Abs. Basophil 0.06 k/uL Normal 0.00-0.20 [facility] Comment on above: Performed By: #### C DP, CP #### [facility] [address] [place] [address] [place] [address] Service Plumber: Domenica Velázquez MD Abs.Imm.Granulocyte 0.10 k/uL Normal 0.00-0.30 [facility] Comment on above: Performed By: #### C DP, CP #### [address] [place] [address]483 Service Plumber: Domenica Velázquez MD Abs.Neutrophil (Seg) 9.08 k/uL High 1.50-8.10 [facility] Comment on above: Performed By: #### C DP, CP #### [address] [place], [place] [address] Service Plumber: Domenica Velázquez MD Basophils/100 WBC (Bld) 0 % Normal 0-2 [facility] Comment on above: Performed By: #### C DP, CP #### [address] [place], [facility]83 Service Plumber: Domenica Velázquez MD Eosinophils (Bld) [#/Vol] 0.10 10*3/uL Normal 0.00-0.44 [facility] Comment on above: Performed By: #### C DP, CP #### [address] [place], [place] 9516783 Service Plumber: Domenica Velázquez MD Eosinophils/100 WBC (Bld) 1 % Normal 1-4 [facility] Comment on above: Performed By: #### C DP, CP #### [facility] [address] [place], [place] 5058683 Service Plumber: Domenica Velázquez MD Erythrocyte distribution width (RBC) [Ratio] 13.6 % Normal 11.8-14.4 [facility] Comment on above: Performed By: #### C DP, CP #### [facility] [address] [place], [place] 1163383 Service Plumber: Domenica Veláqzuez MD Hematocrit (Bld) [Volume fraction] 43.3 % Normal 36.3-47.1 [facility] Comment on above: Performed By: #### C DP, CP #### [address] [place], [place] 0906183 Service Plumber: Domenica Velázquez MD Hemoglobin (Bld) [Mass/Vol] 14.0 g/dL Normal 11.9-15.1 [facility] Comment on above: Performed By: #### C DP, CP #### [address] [place], [place] 4178783 Service Plumber: Domenica Velázquez MD Immature granulocytes/100 WBC (Bld) 1 % High 0 [facility] Comment on above: Performed By: #### C DP, CP #### [address] [place], [place] 6263083 Service Plumber: Domenica Velázquez MD Lymphocytes (Bld) [#/Vol] 2.98 10*3/uL Normal 1.10-3.70 [facility] Comment on above: Performed By: #### C DP, CP #### [facility] [address] [place], [place] 6681583 Service Plumber: Domenica Velázquez MD Lymphocytes/100 WBC (Bld) 22 % Low 24-43 [facility] Comment on above: Performed By: #### C DP, CP #### [facility] [address] [place] [address] Service Plumber: Domenica Velázquez MD MCH (RBC) [Entitic mass] 28.5 pg Normal 25.2-33.5 [facility] Comment on above: Performed By: #### C DP, CP #### [address] [place], [place] 7673183 Service Plumber: Domenica Velázquez MD MCHC (RBC) [Mass/Vol] 32.3 g/dL Normal 28.4-34.8 [facility] Comment on above: Performed By: #### C DP, CP #### [address] [place], [place] 1911183 Service Plumber: Domenica Veálzquez MD MCV (RBC) [Entitic vol] 88.2 fL Normal 82.6-102.9 [facility] Comment on above: Performed By: #### C DP, CP #### [address] [place], [facility]83 Service Plumber: Domenica Velázquez MD Monocytes (Bld) [#/Vol] 1.12 10*3/uL Normal 0.10-1.20 [facility] Comment on above: Performed By: #### C DP, CP #### [address] [place] [address] Service Plumber: Domenica Velázquez MD Monocytes/100 WBC (Bld) 8 % Normal 3-12 [facility] Comment on above: Performed By: #### C DP, CP #### [facility] [address] [place] [address] Dr[address] [place], [place] 7853983 Service Plumber: Domenica Velázquez MD Neutrophil (Seg) 68 % High 36-65 [facility] Comment on above: Performed By: #### C DP, CP #### [address] [place], [place] 9370883 Service Plumber: Domenica Velázquez MD NRBC Automated 0.0 per 100 WBC Normal 0.0 [facility] Comment on above: Performed By: #### C DP, CP #### [facility] [address] [place], [place] 0855783 Service Plumber: Domenica Velázquez MD Platelet mean volume (Bld) [Entitic vol] 10.0 fL Normal 8.1-13.5 [facility] Comment on above: Performed By: #### C DP, CP #### [facility] [address] [place], [place] 6913583 Service Plumber: Domenica Velázquez MD Platelets (Bld) [#/Vol] 452 10*3/uL Normal 138-453 [facility] Comment on above: Performed By: #### C DP, CP #### [facility] [address] [place], [place] 0440783 Service Plumber: Domenica Velázquez MD RBC (Bld) [#/Vol] 4.91 10*6/uL Normal 3.95-5.11 [facility] Comment on above: Performed By: #### C DP, CP #### [facility] [address] [place], [place] 0771483 Service Plumber: Domenica Velázquez MD WBC (Bld) [#/Vol] 13.4 10*3/uL High 3.5-11.3 [facility] Comment on above: Performed By: #### C DP, CP #### [facility] [address] [place], [facility]83 Service Plumber: Domenica Velázquez MD [facility] Albumin [Mass/Vol] 4.4 g/dL 3.5 - 5.2 g/dL [facility] Albumin/Globulin [Mass ratio] 1.3 {ratio} 1.0 - 2.5 [facility] ALP [Catalytic activity/Vol] 87 U/L 35 - 104 U/L [facility] ALT [Catalytic activity/Vol] 25 U/L 10 - 35 U/L [facility] Anion gap [Moles/Vol] 11 mmol/L 9 - 16 mmol/L [facility] AST [Catalytic activity/Vol] 17 U/L 10 - 35 U/L [facility] Bilirubin [Mass/Vol] mg/dL 0.00 - 1.20 mg/dL [facility] Calcium [Mass/Vol] 9.9 mg/dL 8.6 - 10. 4 mg/dL [facility] Chloride [Moles/Vol] 101 mmol/L 98 - 10 7 mmol/L [facility] CO2 [Moles/Vol] 25 mmol/L 20 - 31 mmol/L [facility] Creatinine [Mass/Vol] 0.7 mg/dL 0.50 - 0.90 mg/dL [facility] EstEmily Rate - PINF [facility] Comment on above: These results are [...] 112 mg/dL High 74 - 99 mg/dL [facility] Interpretation and review of laboratory results Abnormal [facility] Potassium [Moles/Vol] 4.2 mmol/L 3.7 - 5.3 mmol/L [facility] Protein [Mass/Vol] 7.8 g/dL 6.6 - 8.7 g/dL [facility] Sodium [Moles/Vol] 137 mmol/L 136 - 145 mmol/L [facility] Urea nitrogen [Mass/Vol] 24 mg/dL High 6 - 20 mg/dL [facility] Urea nitrogen/Creatinine [Mass ratio] 34 mg/mg High 9 - 20 [facility] Comp Metabolic Profon 2023 Albumin [Mass/Vol] 4.4 g/dL Normal 3.5-5.2 [facility] Comment on above: Performed By: #### C DP, CP #### [facility] [address] [place], [place] [address]268983 Service Plumber: Domenica Velázquez MD Albumin/Glob Ratio 1.3 Normal 1.0-2.5 [facility] Comment on above: Performed By: #### C DP, CP #### [facility] [address] [place], [place] 9001083 Service Plumber: Domenica Velázquez MD Alkaline Phos 87 U/L Normal 35-104 [facility] Comment on above: Performed By: #### C DP, CP #### [facility] [address] [place], [place] 0453583 Service Plumber: Domenica Velázquez MD ALT [Catalytic activity/Vol] 25 U/L Normal 10-35 [facility] Comment on above: Performed By: #### C DP, CP #### [facility] [address] [place], [place] 0742583 Service Plumber: Domenica Velázquez MD Anion gap [Moles/Vol] 11 mmol/L Normal 9-16 [facility] Comment on above: Performed By: #### C DP, CP #### [facility] [address] [place], [place] 4479783 Service Plumber: Domenica Velázquez MD AST [Catalytic activity/Vol] 17 U/L Normal 10-35 [facility] Comment on above: Performed By: #### C DP, CP #### [facility] [address] [place], [place] 0806883 Service Plumber: Domenica Velázquez MD Bilirubin [Mass/Vol] mg/dL Normal 0.00-1.20 [facility] Comment on above: Performed By: #### C DP, CP #### [facility] [address] [place], [place] 9[address]1683 Service Plumber: Domenica Velázquez MD BUN/CRE Ratio 34 High 9-20 [facility] Comment on above: Performed By: #### C DP, CP #### [facility] [address] [place], [place] 5580183 Service Plumber: Domenica Velázquez MD Calcium [Mass/Vol] 9.9 mg/dL Normal 8.6-10.4 [facility] Comment on above: Performed By: #### C DP, CP #### [facility] [address] [place], [place] 5610383 Service Plumber: Domenica Velázquez MD Chloride [Moles/Vol] 101 mmol/L Normal 98-107 [facility] Comment on above: Performed By: #### C DP, CP #### [facility] [address] [place], [place] 4475183 Service Plumber: Domenica Velázquez MD CO2 [Moles/Vol] 25 mmol/L Normal 20-31 [facility] Comment on above: Performed By: #### C DP, CP #### [facility] [address] [place], [place] 1647683 Service Plumber: Domenica Velázquez MD Creatinine [Mass/Vol] 0.7 mg/dL Normal 0.50-0.90 [facility] Comment on above: Performed By: #### C DP, CP #### [facility] [address] [place], [place] [address]132083 Service Plumber: Domenica Velázquez MD GFR/1.73 sq M.predicted among non-blacks MDRD (S/P/Bld) [Vol rate/Area] mL/min/{1.73_m2} Normal >60 [facility] Comment on above: Result Comment: [...] Performed By: #### C DP, CP #### [facility] [address] [place], [place] 2498383 Service Plumber: Domenica Velázquez MD Glucose [Mass/Vol] 112 mg/dL High 74-99 [facility] Comment on above: Performed By: #### C DP, CP #### [facility] [address] [place], [place] 7644583 Service Plumber: Domenica Velázquez MD Potassium [Moles/Vol] 4.2 mmol/L Normal 3.7-5.3 [facility] Comment on above: Performed By: #### C DP, CP #### [facility] [address] [place], [place] 6187283 Service Plumber: Domenica Velázquez MD Protein [Mass/Vol] 7.8 g/dL Normal 6.6-8.7 [facility] Comment on above: Performed By: #### C DP, CP #### [facility] [address] [place], [place] 9813383 Service Plumber: Domenica Velázquez MD Sodium [Moles/Vol] 137 mmol/L Normal 136-145 [facility] Comment on above: Performed By: #### C DP, CP #### [address] [place], [place] 6084383 Service Plumber: Domenica Velázquez MD Urea nitrogen [Mass/Vol] 24 mg/dL High 6-20 [facility] Comment on above: Performed By: #### C DP, CP #### [facility] [address] [place] [address] Service Plumber: Domenica Velázquez MD Microscopic Urinalysison Bacteria LM Ql (Urine sed) 1+ Abnormal None [facility] Epithelial cells LM.HPF (Urine sed) [#/Area] 0 TO 2 [facility] Interpretation and review of laboratory results Abnormal [facility] Mucus Ql (Urine sed) TRACE Abnormal None Bon [facility] RBC LM.HPF (Urine sed) [#/Area] 0 TO 2 [facility] WBC LM.HPF (Urine sed) [#/Area] None [facility] TSHon 01-13-2024 TSH Qn 1.57 m[IU]/L [facility] Thyroid Stim. Horm.on 2023 Thyroid Stim. Horm. 1.57 uIU/mL Normal 0.27-4.20 [facility] Comment on above: Performed By: #### T SH #### [facility] [address] [place], [place] [address]6983 Service Plumber: Domenica Velázquez MD UA w/Reflex Cultureon 2023 Bilirubin, SemiQt,Ur Negative Normal NEG [facility] Comment on above: Performed By: #### U MIGUELO UAX #### [facility] [address] [place], [facility]83 Service Plumber: Domenica Velázquez MD Blood, Urine Negative Normal NEG [facility] Comment on above: Performed By: #### U MIGUELO UAX #### [facility] [address] [place], [facility]83 Service Plumber: Domenica Velázquez MD Clarity (U) Clear Normal CLEAR [facility] Comment on above: Performed By: #### U MIGUELO, UAX #### [facility] [address] [place], [facility]83 Service Plumber: Domenica Velázquez MD Color (U) Yellow Normal YEL [facility] Comment on above: Performed By: #### U MIGUELO, UAX #### [facility] [address] [place] [address] Service Plumber: Domenica Velázquez MD Glucose Ql (U) 3+ mg/dL Abnormal NEG [facility] Comment on above: Performed By: #### U MICAO, UAX #### [facility] [address] [place], [place] 3449783 Service Plumber: Domenica Velázquez MD Ketones Ql (U) Negative Normal NEG [facility] Comment on above: Performed By: #### U MICAO, UAX #### [facility] [address] [place], [place] 8752783 Service Plumber: Domenica Velázquez MD Leukocyte esterase Test strip Ql (U) Negative Normal NEG [facility] Comment on above: Performed By: #### U MICAO, UAX #### [address] [place], [place] [address]16783 Service Plumber: Domenica Velázquez MD Nitrite,Ur Negative Normal [facility] Comment on above: Performed By: #### U MICAO, UAX #### [facility] [address] [place] [address] Dr. [place], [place] 4146083 Service Plumber: Domenica Velázquez MD PH,Ur 6.0 Normal 5.0-9.0 [facility] Comment on above: Performed By: #### U MICAO, UAX #### [address] [place], [place] 9834583 Service Plumber: Domenica Velázquez MD Protein Ql (U) Negative Normal NEG [facility] Comment on above: Performed By: #### U MICAO, UAX #### [facility] [address] [place] [address] Dr. [place], [place] 8965183 Service Plumber: Domenica Velázquez MD Spec. [place],Ur >1.030 High 1.010-1.02 0 [facility] Comment on above: Performed By: #### U MICAO, UAX #### [facility] [address] [place] [address] Dr. [place], [place] 9356883 Service Plumber: Domenica Velázquez MD Urobilinogen,Ur Normal Normal 0.0-1.0 [facility] Comment on above: Performed By: #### U MICAO, UAX #### [facility] [address] [place] [address] Service Plumber: Domenica Velázquez MD Urinalysis with Reflex to Cu ltureon 01-13-2024 Bilirubin Ql (U) Negative NEGATIVE [facility] Clarity (U) Clear Clear [facility] Color (U) Yellow Yellow [facility] Glucose Test strip (U) [Mass/Vol] 3+ Abnormal NEGATIVE mg/dL [facility] Hemoglobin Auto test strip Ql (U) Negative NEGATIVE [facility] Interpretation and review of laboratory results Abnormal [facility] Ketones (U) [Mass/Vol] Negative NEGATIVE mg/dL [facility] Leukocyte esterase Test strip Ql (U) Negative NEGATIVE [facility] Nitrite Ql (U) Negative NEGATIVE [facility] pH (U) 6.0 [pH] 5.0 - 9.0 [facility] Protein (U) [Mass/Vol] Negative NEGATIVE mg/dL [facility] Specific gravity (U) [Rel density] High 1.010 - 1.020 [facility] Urobilinogen Qn (U) Normal 0.0 - 1. 0 EU/dL [facility] Urinalysis,Microon 4 Bacteria 1+ Abnormal NONE [facility] Comment on above: Performed By: #### U MIGUELO, UAX #### [facility] [address] [place] [address] Service Plumber: Domenica Velázquez MD Epithelial cells LM Ql (Urine sed) 0 TO 2 Normal 0-25 [facility] Comment on above: Performed By: #### U DULCE, UAX #### [facility] [address] [place] [address] Service Plumber: Domenica Velzáquez MD Mucus Strands TRACE Abnormal NONE [facility] Comment on above: Performed By: #### U MIGUELO, UAX #### [facility] [address] [place], [place] 1321483 Service Plumber: Domenica Velázquez MD Urine RBC's 0 TO 2 Normal 0-2 [facility] Comment on above: Performed By: #### U DULCE, UAX #### [facility] [address] [place], [place] 3126683 Service Plumber: Domenica Velázquez MD Urine WBC's None Normal 0-5 [facility] Comment on above: Performed By: #### Donavon CARDONA, UAX #### [facility] [address] [place], [place] 7938883 Service Plumber: Domenica Velázquez MD BASIC METABOLIC PANLon 12-20 Anion gap [Moles/Vol] 10 mmol/L Normal 5-15 [facility] Comment on above: Performed By: #### C BCA, BMP, FEPR, 2276-4 #### [facility] ([id number]) [address] [place] [address] Calcium [Mass/Vol] 8.9 mg/dL Normal 8.5-10.5 [facility] Comment on above: Performed By: #### C BCA, BMP, FEPR, 2276-4 #### [facility] ([id number]) [address] [place] [address] Chloride [Moles/Vol] 106 mmol/L Normal 98-109 [facility] Comment on above: Performed By: #### C BCA, BMP, FEPR, 2276-4 #### [facility] ([id number]) [address], [address] [place] [address] CO2 [Moles/Vol] 22 mmol/L Normal 22-32 [facility] Comment on above: Performed By: #### C BCA, BMP, FEPR, 2276-4 #### [facility] ([id number]) [address], [address] [place] [address] Creatinine [Mass/Vol] 0.70 mg/dL Normal 0.40-1.00 [facility] Comment on above: Result Comment: METH OD TRACEABLE TO IDMS STANDARD Performed By: #### C BCA, BMP, FEPR, 2276-4 #### [facility] ([id number]) [address], [address] [place] [address] eGFR (CKD-EPI) NON-RACE DEPENDENT >90 Normal >59 [facility] Comment on above: Result Comment: Reported eGFR is based on the CKD-EPI 2020 equation that does not use a race coefficient. Performed By: #### C BCA, BMP, FEPR, 2276-4 #### [facility] ([id number]) [address], [address] [place] [address] Glucose [Mass/Vol] 89 mg/dL Normal 65-99 [facility] Comment on above: Performed By: #### C BCA, BMP, FEPR, 2276-4 #### [facility] ([id number]) [address], [address] [place] [address] Potassium [Moles/Vol] 4.2 mmol/L Normal 3.5-5.0 [facility] Comment on above: Performed By: #### C BCA, BMP, FEPR, 2276-4 #### [facility] ([id number]) [address], [address] [place] [address] Sodium [Moles/Vol] 138 mmol/L Normal 134-146 [facility] Comment on above: Performed By: #### C BCA, BMP, FEPR, 2276-4 #### [facility] ([id number]) [address], [address] [place] [address] Urea nitrogen [Mass/Vol] 18 mg/dL Normal 5-23 [facility] Comment on above: Performed By: #### C BCA, BMP, FEPR, 2276-4 #### [facility] ([id number]) [address], [address] [place] [address] CBC AND AUTO DIFFon 10-21-20 24 ABSOLUTE BASOPHIL 0.0 X10E9/L Normal 0.0-0.2 [facility] Comment on above: Performed By: #### C BCA, BMP, FEPR, 2275-4 #### [facility] ([id number]) [address], [address] [place] [address] ABSOLUTE NEUTROPHIL 5.7 X10E9/L Normal 1.5-6.6 [facility] Comment on above: Performed By: #### C BCA, BMP, FEPR, 2275- #### [facility] ([id number]) [address], [address] [place] [address] Basophils/100 WBC (Bld) 0.4 % Normal [facility] Comment on above: Performed By: #### C BCA, BMP, FEPR, 2275- #### [facility] ([id number]) [address], [address] [place] [address] Eosinophils (Bld) [#/Vol] 0.1 10*3/uL Normal 0.0-0.4 [facility] Comment on above: Performed By: #### C BCA, BMP, FEPR, 2275- #### [facility] ([id number]) [address], [address] [place] [address] Eosinophils/100 WBC (Bld) 1.2 % Normal [facility] Comment on above: Performed By: #### C BCA, BMP, FEPR, 2275-4 #### [facility] ([id number]) [address] [address] [place] [address] Erythrocyte distribution width (RBC) [Ratio] 14.4 % Normal 11.5-15.0 [facility] Comment on above: Performed By: #### C BCA, BMP, FEPR, 2275- #### [facility] ([id number]) [address] [address] [address] [place] [address] Hematocrit (Bld) [Volume fraction] 37.4 % Normal 35-47 [facility] Comment on above: Performed By: #### C BCA, BMP, FEPR, 6-4 #### [facility] ([id number]) [address] [address] [place] [address] Hemoglobin (Bld) [Mass/Vol] 12.4 g/dL Normal 11.7-15.5 [facility] Comment on above: Performed By: #### C BCA, BMP, FEPR, 2275-4 #### [facility] ([id number]) [address] [address] [place] [address] Lymphocytes (Bld) [#/Vol] 2.4 10*3/uL Normal 1.0-3.5 [facility] Comment on above: Performed By: #### C BCA, BMP, FEPR, 2275-4 #### [facility] ([id number]) [address] [address] [place] [address] Lymphocytes/100 WBC (Bld) 28.1 % Normal [facility] Comment on above: Performed By: #### C BCA, BMP, FEPR, 2275-4 #### [facility] ([id number]) [address] [address] [place] [address] MCH (RBC) [Entitic mass] 28.8 pg Normal 27-34 [facility] Comment on above: Performed By: #### C BCA, BMP, FEPR, 2275-4 #### [facility] ([id number]) [address] [address] [place] [address] MCHC (RBC) [Mass/Vol] 33.1 g/dL Normal 32-36 [facility] Comment on above: Performed By: #### C BCA, BMP, FEPR, 2275-4 #### [facility] ([id number]) [address], [address] [place] [address] MCV (RBC) [Entitic vol] 87 fL Normal 80-100 [facility] Comment on above: Performed By: #### C BCA, BMP, FEPR, 2275-4 #### [facility] ([id number]) [address], [address] [place] [address] Monocytes (Bld) [#/Vol] 0.3 10*3/uL Normal 0-0.9 [facility] Comment on above: Performed By: #### C BCA, BMP, FEPR, 2275- #### [facility] ([id number]) [address], [address] [place] [address] Monocytes/100 WBC (Bld) 3.0 % Normal [facility] Comment on above: Performed By: #### C BCA, BMP, FEPR, 2275- #### [facility] ([id number]) [address], [address] [place] [address] Neutrophils/100 WBC (Bld) 67.3 % Normal [facility] Comment on above: Performed By: #### C BCA, BMP, FEPR, 2275-06 #### [facility] ([id number]) [address], [address] [place] [address] Platelet mean volume (Bld) [Entitic vol] 8.8 fL Normal 7-12 [facility] Comment on above: Performed By: #### C BCA, BMP, FEPR, 2275- #### [facility] ([id number]) [address], [address] [place] [address] Platelets (Bld) [#/Vol] 325 10*3/uL Normal 150-450 [facility] Comment on above: Performed By: #### C BCA, BMP, FEPR, 2275-4 #### [facility] ([id number]) [address] [address] [place] [address] RBC COUNT 4.31 X10E12/L Normal 3.80-5.20 [facility] Comment on above: Performed By: #### C BCA, BMP, FEPR, 6-4 #### [facility] ([id number]) [address] [address] [place] [address] WBC (Bld) [#/Vol] 8.4 10*3/uL Normal 4.0-11.0 [facility] Comment on above: Performed By: #### C BCA, BMP, FEPR, 6-4 #### [facility] ([id number]) [address] [address] [place] [address] FERRITINon 12-21-2023 Ferritin [Mass/Vol] 195 ng/mL Normal 11-307 [facility] Comment on above: Performed By: #### C BCA, CMP, 11623-4, TSHR #### [facility] ([id number]) [address] [address] [place] [address] IRON PROFILEon 12-21-2023 Iron [Mass/Vol] 53 ug/dL Normal 50-170 [facility] Comment on above: Performed By: #### C BCA, BMP, FEPR, 6-4 #### [facility] ([id number]) [address] [address] [place] [address] IRON BINDING 374 ug/dL Normal 250-425 [facility] Comment on above: Performed By: #### C BCA, BMP, FEPR, 2276-4 #### [facility] ([id number]) [address] [address] [place] [address] IRON SATURATION 14 % SATURATION Low 15-50 [facility] Comment on above: Performed By: #### C BCA, BMP, FEPR, 2276-4 #### [facility] ([id number]) [address], [address] [place] [address] CT ABDOMEN PELVIS W IV CONTR Dar [...] significant stool or gas noted. Evidence of [id number] diverticulosis of proximal sigmoid colon and descending [...] Zoë Nicole MD 10/07/23 Final result Normal [facility] Comp Metabolic Profon 2023 Albumin [Mass/Vol] 4.1 g/dL Normal 3.5-5.2 [facility] Comment on above: Performed By: #### C DP, TROPI, CP, LIP ####[address] [place] [address] Lab Director: Domenica Velázquez MD Albumin/Glob Ratio 1.4 Normal 1.0-2.5 [facility] Comment on above: Performed By: #### C DP, TROPI, CP, LIP ####[facility] [place] [address] lab Director: Domenica Velázquez MD Alkaline Phos 85 U/L Normal 35-104 [facility] Comment on above: Performed By: #### C DP, TROPI, CP, LIP ####[address] [place] [address] lab Director: Domenica Velázquez MD ALT [Catalytic activity/Vol] 12 U/L Normal 5-33 [facility] Comment on above: Performed By: #### C DP, TROPI, CP, LIP ####[address] , [place] [address]83 lab Director: Domenica Velázquez MD Anion gap [Moles/Vol] 11 mmol/L Normal 9-17 [facility] Comment on above: Performed By: #### C DP, TROPI, CP, LIP ####[address] , [place] 402[address]83 lab Director: Domenica Velázquez MD AST [Catalytic activity/Vol] 14 U/L Normal <32 [facility] Comment on above: Performed By: #### C DP, TROPI, CP, LIP ####[address] , [place] 9[address]83 lab Director: Domenica Velázquez MD Bilirubin [Mass/Vol] 0.2 mg/dL Low 0.3-1.2 [facility] Comment on above: Performed By: #### C DP, TROPI, CP, LIP ####[address] , [place] 405[address]683 lab Director: Domenica Velázquez MD BUN/CRE Ratio 30 High 9-20 [facility] Comment on above: Performed By: #### C DP, TROPI, CP, LIP ####[address] , [place] [address]83 lab Director: Domenica Velázquez MD Calcium [Mass/Vol] 8.8 mg/dL Normal 8.6-10.4 [facility] Comment on above: Performed By: #### C DP, TROPI, CP, LIP ####[address] , [place] 283[address]83 lab Director: Domenica Velázquez MD Chloride [Moles/Vol] 103 mmol/L Normal 98-107 [facility] Comment on above: Performed By: #### C DP, TROPI, CP, LIP ####[facility] [place] [address] Lab Director: Domenica Velázquez MD CO2 [Moles/Vol] 25 mmol/L Normal 20-31 [facility] Comment on above: Performed By: #### C DP, TROPI, CP, LIP ####[facility] [place] , [place] [address] Lab Director: Domenica Velázquez MD Creatinine [Mass/Vol] 0.6 mg/dL Normal 0.5-0.9 [facility] Comment on above: Performed By: #### C DP, TROPI, CP, LIP ####[address] [place] [address] Lab Director: Domenica Velázquez MD GFR/1.73 sq M.predicted among non-blacks MDRD (S/P/Bld) [Vol rate/Area] mL/min/{1.73_m2} Normal >60 [facility] Comment on above: Result Comment: [...] By: #### C DP, TROPI, CP, LIP ####[facility] [place] [address] Lab Director: Domenica Velázquez MD Glucose [Mass/Vol] 92 mg/dL Normal 70-99 [facility] Comment on above: Performed By: #### C DP, TROPI, CP, LIP ####[facility] [place] , [place] 146[address]83 Lab Director: Domenica Velázquez MD Potassium [Moles/Vol] 3.6 mmol/L Low 3.7-5.3 [facility] Comment on above: Performed By: #### C DP, TROPI, CP, LIP ####[address] , [place] 1329683 Lab Director: Domenica Velázquez MD Protein [Mass/Vol] 7.0 g/dL Normal 6.4-8.3 [facility] Comment on above: Performed By: #### C DP, TROPI, CP, LIP ####[address] [place] [address] Lab Director: Domenica Velázquez MD Sodium [Moles/Vol] 139 mmol/L Normal 135-144 [facility] Comment on above: Performed By: #### C DP, TROPI, CP, LIP ####[address] [place] [address] Lab Director: Domenica Velázquez MD Urea nitrogen [Mass/Vol] 18 mg/dL Normal 6-20 [facility] Comment on above: Performed By: #### C DP, TROPI, CP, LIP ####[address] , [place] 7532283 Lab Director: Domenica Velázquez MD Lipaseon 10-07-2023 Lipase [Catalytic activity/Vol] 28 U/L Normal 13-60 [facility] Comment on above: Performed By: #### C DP, TROPI, CP, LIP ####[address] [place] [address] Lab Director: Domenica Velázquez MD Troponinon 10-07-2023 Troponin, High Sens <6 Normal 0-14 [facility] Comment on above: Result Comment: High Sensitivity Troponin values cannot be compared with other Troponin methodologies. Performed By: #### C DP, TROPI, CP, LIP ####[address] [place] [address] Lab Director: Domenica Velázquez MD CBC with Diffon 10-06-2023 Abs. Basophil 0.03 k/uL Normal 0.00-0.20 [facility] Comment on above: Performed By: #### C DP, TROPI, CP, LIP ####[address] [place], [place] [id number])[phone] Director: Domenica Velázquez MD Abs.Imm.Granulocyte 0.03 k/uL Normal 0.00-0.30 [facility] Comment on above: Performed By: #### C DP, TROPI, CP, LIP ####[address] [place], [place] [address])[phone] Director: Domenica Velázquez MD Abs.Neutrophil (Seg) 6.50 k/uL Normal 1.50-8.10 [facility] Comment on above: Performed By: #### C DP, TROPI, CP, LIP ####[address] [place] [address])[phone] Director: Domenica Velázquez MD Basophils/100 WBC (Bld) 0 % Normal 0-2 [facility] Comment on above: Performed By: #### C DP, TROPI, CP, LIP ####[address] [place] [address])[phone] Director: Domenica Velázquez MD Eosinophils (Bld) [#/Vol] 0.08 10*3/uL Normal 0.00-0.44 [facility] Comment on above: Performed By: #### C DP, TROPI, CP, LIP ####[address] [place] [address])[phone] Director: Domenica Velázquez MD Eosinophils/100 WBC (Bld) 1 % Normal 1-4 [facility] Comment on above: Performed By: #### C DP, TROPI, CP, LIP ####[address] [place] [address] [facility] Director: Domenica Velázquez MD Erythrocyte distribution width (RBC) [Ratio] 13.5 % Normal 11.8-14.4 [facility] Comment on above: Performed By: #### C DP, TROPI, CP, LIP ####[address] [place] [address] Lab Director: Domenica Velázquez MD Hematocrit (Bld) [Volume fraction] 40.1 % Normal 36.3-47.1 [facility] Comment on above: Performed By: #### C DP, TROPI, CP, LIP ####[address] [place] 1723483 Lab Director: Domenica Velázquez MD Hemoglobin (Bld) [Mass/Vol] 13.4 g/dL Normal 11.9-15.1 [facility] Comment on above: Performed By: #### C DP, TROPI, CP, LIP ####[address] , [facility]83 Lab Director: Domenica Velázquez MD Immature granulocytes/100 WBC (Bld) 0 % Normal 0 [facility] Comment on above: Performed By: #### C DP, TROPI, CP, LIP ####[address] [place] [address] Lab Director: Domenica Velázquez MD Lymphocytes (Bld) [#/Vol] 2.41 10*3/uL Normal 1.10-3.70 [facility] Comment on above: Performed By: #### C DP, TROPI, CP, LIP ####[address] [place] [address] Lab Director: Domenica Velázquez MD Lymphocytes/100 WBC (Bld) 25 % Normal 24-43 [facility] Comment on above: Performed By: #### C DP, TROPI, CP, LIP ####[address] [facility]97 Lab Director: Domenica Velázquez MD MCH (RBC) [Entitic mass] 28.6 pg Normal 25.2-33.5 [facility] Comment on above: Performed By: #### C DP, TROPI, CP, LIP ####[address] , [facility]83[facility])[phone] Director: Domenica Velázquez MD MCHC (RBC) [Mass/Vol] 33.4 g/dL Normal 28.4-34.8 [facility] Comment on above: Performed By: #### C DP, TROPI, CP, LIP ####[address] , [facility]95([facility])[phone] Director: Domenica Velázquez MD MCV (RBC) [Entitic vol] 85.7 fL Normal 82.6-102.9 [facility] Comment on above: Performed By: #### C DP, TROPI, CP, LIP ####[address] , [place] [address])[phone] Director: Domenica Velázquez MD Monocytes (Bld) [#/Vol] 0.69 10*3/uL Normal 0.10-1.20 [facility] Comment on above: Performed By: #### C DP, TROPI, CP, LIP ####[address] , [place] [address])[phone] Director: Domenica Velázquez MD Monocytes/100 WBC (Bld) 7 % Normal 3-12 [facility] Comment on above: Performed By: #### C DP, TROPI, CP, LIP ####[address] , [facility]83[facility])[phone] Director: Domenica Velázquez MD Neutrophil (Seg) 67 % High 36-65 [facility] Comment on above: Performed By: #### C DP, TROPI, CP, LIP ####[address] [place] [address] Lab Director: Domenica Velázquez MD NRBC Automated 0.0 per 100 WBC Normal 0.0 [facility] Comment on above: Performed By: #### C DP, TROPI, CP, LIP ####[address] , [place] 2293483 Lab Director: Domenica Velázquez MD Platelet mean volume (Bld) [Entitic vol] 10.5 fL Normal 8.1-13.5 [facility] Comment on above: Performed By: #### C DP, TROPI, CP, LIP ####[address] , [place] [phone] Director: Domenica Velázquez MD Platelets (Bld) [#/Vol] 292 10*3/uL Normal 138-453 [facility] Comment on above: Performed By: #### C DP, TROPI, CP, LIP ####[address] , [facility]31 Lab Director: Domenica Velázquez MD RBC (Bld) [#/Vol] 4.68 10*6/uL Normal 3.95-5.11 [facility] Comment on above: Performed By: #### C DP, TROPI, CP, LIP ####[address] , [facility]83[facility])[phone] Director: Domenica Velázquez MD WBC (Bld) [#/Vol] 9.7 10*3/uL Normal 3.5-11.3 [facility] Comment on above: Performed By: #### C DP, TROPI, CP, LIP ####[address] , [place] 701[address]83 Lab Director: Domenica Velázquez MD Basic Metabolic Profon 10-04 Anion gap [Moles/Vol] 10 mmol/L Normal 9-17 [facility] Comment on above: Performed By: #### D BASIA, BMP, CDP, TROPI #### [facility] [address] [place], [place] 319[address]83 Service Plumber: Domenica Velázquez MD BUN/CRE Ratio 23 High 9-20 [facility] Comment on above: Performed By: #### D BASIA, BMP, CDP, TROPI #### [facility] [address] [place], [place] 1920083 Service Plumber: Domenica Velázquez MD Calcium [Mass/Vol] 8.9 mg/dL Normal 8.6-10.4 [facility] Comment on above: Performed By: #### D BASIA, BMP, CDP, TROPI #### [facility] [address] [place], [place] 3610483 Service Plumber: Domenica Velázquez MD Chloride [Moles/Vol] 105 mmol/L Normal 98-107 [facility] Comment on above: Performed By: #### D BASIA, BMP, CDP, TROPI #### [facility] [address] [place], [place] 9673683 Service Plumber: Domenica Velázquez MD CO2 [Moles/Vol] 26 mmol/L Normal 20-31 [facility] Comment on above: Performed By: #### D BASIA, BMP, CDP, TROPI #### [facility] [address] [place], [place] 5217683 Service Plumber: Domenica Velázquez MD Creatinine [Mass/Vol] 0.6 mg/dL Normal 0.5-0.9 [facility] Comment on above: Performed By: #### D BASIA, BMP, CDP, TROPI #### [facility] [address] [place] [address] Service Plumber: Domenica Veláqzuez MD GFR/1.73 sq M.predicted among non-blacks MDRD (S/P/Bld) [Vol rate/Area] mL/min/{1.73_m2} Normal >60 [facility] Comment on above: Result Comment: [...] D BASIA, BMP, CDP, TROPI #### [facility] [address] [place] [address] Dr[address] [place], [place] 0879983 Service Plumber: Domenica Velázquez MD Glucose [Mass/Vol] 96 mg/dL Normal 70-99 [facility] Comment on above: Performed By: #### D BASIA, BMP, CDP, TROPI #### [address] [place], [place] 528[address]83 Service Plumber: Domenica Velázquez MD Potassium [Moles/Vol] 3.8 mmol/L Normal 3.7-5.3 [facility] Comment on above: Performed By: #### D BASIA, BMP, CDP, TROPI #### [address] [place] [address] Service Plumber: Domenica Velázquez MD Sodium [Moles/Vol] 141 mmol/L Normal 135-144 [facility] Comment on above: Performed By: #### Smiley BASIA, BMP, CDP, TROPI #### [facility] [address] [place] [address] [place] [address] Service Plumber: Domenica Velázquez MD Urea nitrogen [Mass/Vol] 14 mg/dL Normal 6-20 [facility] Comment on above: Performed By: #### D BASIA, BMP, CDP, TROPI #### [facility] [address] [place] [address] [address], [place] 2436383 Service Plumber: Domenica Velázquez MD CBC with Diffon 10-05-2023 Abs. Basophil <0.03 Normal 0.00-0.20 [facility] Comment on above: Performed By: #### D BASIA, BMP, CDP, TROPI #### [address] [place] [address] Service Plumber: Domenica Velázquez MD Abs.Imm.Granulocyte 0.03 k/uL Normal 0.00-0.30 [facility] Comment on above: Performed By: #### D BASIA, BMP, CDP, TROPI #### [address] [place] [address] Service Plumber: Domenica Velázquez MD Abs.Neutrophil (Seg) 5.10 k/uL Normal 1.50-8.10 [facility] Comment on above: Performed By: #### D BASIA, BMP, CDP, TROPI #### [address] [place] [address]483 Service Plumber: Domenica Velázquez MD Basophils/100 WBC (Bld) 0 % Normal 0-2 [facility] Comment on above: Performed By: #### D BASIA, BMP, CDP, TROPI #### [address] [place] [address] Service Plumber: Domenica Velázquez MD Eosinophils (Bld) [#/Vol] 0.11 10*3/uL Normal 0.00-0.44 [facility] Comment on above: Performed By: #### D BASIA, BMP, CDP, TROPI #### [address] [place], [facility]83 Service Plumber: Domenica Velázquez MD Eosinophils/100 WBC (Bld) 1 % Normal 1-4 [facility] Comment on above: Performed By: #### D BASIA, BMP, CDP, TROPI #### [address] [place] [address] Service Plumber: Domenica Velázquez MD Erythrocyte distribution width (RBC) [Ratio] 13.5 % Normal 11.8-14.4 [facility] Comment on above: Performed By: #### D BASIA, BMP, CDP, TROPI #### [facility] [address] [place], [place] 0778383 Service Plumber: Domenica Velázquez MD Hematocrit (Bld) [Volume fraction] 42.6 % Normal 36.3-47.1 [facility] Comment on above: Performed By: #### D BASIA, BMP, CDP, TROPI #### [facility] [address] [place], [place] 7140983 Service Plumber: Domenica Velázquez MD Hemoglobin (Bld) [Mass/Vol] 14.1 g/dL Normal 11.9-15.1 [facility] Comment on above: Performed By: #### D BASIA, BMP, CDP, TROPI #### [address] [place], [place] 0364383 Service Plumber: Domenica Velázquez MD Immature granulocytes/100 WBC (Bld) 0 % Normal 0 [facility] Comment on above: Performed By: #### D BASIA, BMP, CDP, TROPI #### [address] [place], [place] 4406583 Service Plumber: Domenica Velázquez MD Lymphocytes (Bld) [#/Vol] 2.42 10*3/uL Normal 1.10-3.70 [facility] Comment on above: Performed By: #### D BASIA, BMP, CDP, TROPI #### [facility] [address] [place] [address] [address], [place] 7557883 Service Plumber: Domenica Velázquez MD Lymphocytes/100 WBC (Bld) 30 % Normal 24-43 [facility] Comment on above: Performed By: #### D BASIA, BMP, CDP, TROPI #### [facility] [address] [place], [place] 9736683 Service Plumber: Domenica Velázquez MD MCH (RBC) [Entitic mass] 28.8 pg Normal 25.2-33.5 [facility] Comment on above: Performed By: #### D BASIA, BMP, CDP, TROPI #### [facility] [address] [place], [place] 1489683 Service Plumber: Domenica Velázquez MD MCHC (RBC) [Mass/Vol] 33.1 g/dL Normal 28.4-34.8 [facility] Comment on above: Performed By: #### D BASIA, BMP, CDP, TROPI #### [facility] [facility] [address] [place] [address] Service Plumber: Domenica Velázquez MD MCV (RBC) [Entitic vol] 87.1 fL Normal 82.6-102.9 [facility] Comment on above: Performed By: #### D BASIA, BMP, CDP, TROPI #### [address] [place], [facility]83 Service Plumber: Domenica Velázquez MD Monocytes (Bld) [#/Vol] 0.53 10*3/uL Normal 0.10-1.20 [facility] Comment on above: Performed By: #### D BASIA, BMP, CDP, TROPI #### [address] [place], [place] [address] Service Plumber: Domenica Velázquez MD Monocytes/100 WBC (Bld) 7 % Normal 3-12 [facility] Comment on above: Performed By: #### D BASIA, BMP, CDP, TROPI #### [facility] [address] [place], [place] [address] Service Plumber: Domenica Velázquez MD Neutrophil (Seg) 62 % Normal 36-65 [facility] Comment on above: Performed By: #### D BASIA, BMP, CDP, TROPI #### [facility] [address] [place] [address] Service Plumber: Domenica Velázquez MD NRBC Automated 0.0 per 100 WBC Normal 0.0 [facility] Comment on above: Performed By: #### D BASIA, BMP, CDP, TROPI #### [facility] [address] [place], [facility]83 Service Plumber: Domenica Velázquez MD Platelet mean volume (Bld) [Entitic vol] 10.9 fL Normal 8.1-13.5 [facility] Comment on above: Performed By: #### D BASIA, BMP, CDP, TROPI #### [facility] [address] [place], [facility]83 Service Plumber: Domenica Velázquez MD Platelets (Bld) [#/Vol] 296 10*3/uL Normal 138-453 [facility] Comment on above: Performed By: #### D BASIA, BMP, CDP, TROPI #### [address] [place], [facility]83 Service Plumber: Domenica Velázquez MD RBC (Bld) [#/Vol] 4.89 10*6/uL Normal 3.95-5.11 [facility] Comment on above: Performed By: #### D BASIA, BMP, CDP, TROPI #### [address] [place] [address] Service Plumber: Domenica Velázquez MD WBC (Bld) [#/Vol] 8.2 10*3/uL Normal 3.5-11.3 [facility] Comment on above: Performed By: #### D BASIA, BMP, CDP, TROPI #### [address] [place] [address] Service Plumber: Domenica Velázquez MD CT CHEST PULMONARY EMBOLISM [...] Fernando Marcelino MD 10/05/23 Final result Normal [facility] D-Dimer Teston 10-05-2023 D-Dimer Test 0.30 ug/mL FEU Normal 0.00-0.59 [facility] Comment on above: Result Comment: When [...] By: #### D BASIA, BMP, CDP, TROPI ####[address] [place] [address] Lab Director: Domenica Velázquez MD Liver Profileon 10-05-2023 Albumin [Mass/Vol] 4.4 g/dL Normal 3.5-5.2 [facility] Comment on above: Performed By: #### L IVP ####[address] , [place] [id number] Lab Director: Domenica Velázquez MD Albumin/Glob Ratio 1.4 Normal 1.0-2.5 [facility] Comment on above: Performed By: #### L IVP ####[address] [place] [address] Lab Director: Domenica Velázquez MD Alkaline Phos 99 U/L Normal 35-104 [facility] Comment on above: Performed By: #### L IVP ####[address] [place] [address] Lab Director: Domenica Velázquez MD ALT [Catalytic activity/Vol] 13 U/L Normal 5-33 [facility] Comment on above: Performed By: #### L IVP ####[address] [place] [address] Lab Director: Domeniac Velázquez MD AST [Catalytic activity/Vol] 16 U/L Normal <32 [facility] Comment on above: Performed By: #### L IVP ####[address] , [place] [address] Lab Director: Domenica Velázquez MD Bilirubin [Mass/Vol] 0.2 mg/dL Low 0.3-1.2 [facility] Comment on above: Performed By: #### L IVP ####[address] [place] [address] Lab Director: Domenica Velázquez MD Bilirubin, Indirect Can not be calculated Normal 0.0-1 .0 [facility] Comment on above: Performed By: #### L IVP ####[address] [place] [address] Lab Director: Domenica Velázquez MD Bilirubin.indirect [Mass/Vol] mg/dL Normal <0.3 [facility] Comment on above: Performed By: #### L IVP ####[address] [place] [address] Lab Director: Domenica Velázquez MD Protein [Mass/Vol] 7.5 g/dL Normal 6.4-8.3 [facility] Comment on above: Performed By: #### L IVP ####[address] [place] [address] Lab Director: Domenica Velázquez MD Troponinon 10-05-2023 Troponin, High Sens <6 Normal 0-14 [facility] Comment on above: Result Comment: High Sensitivity Troponin values cannot be compared with other Troponin methodologies. Performed By: #### T ROPI ####[address] , [place] [phone] Director: Domenica Velázquez MD Troponin, High Sens <6 Normal 0-14 [facility] Comment on above: Result Comment: High Sensitivity Troponin values cannot be compared with other Troponin methodologies. Performed By: #### D BASIA, BMP, CDP, TROPI #### [address] [place], [place] [address] Service Plumber: Domenica Velázquez MD XR CHEST PORTABLEon 10-05-19 [...] Deyanira Lock MD 10/05/23 Final result Normal [facility] CT CERVICAL SPINE WO CONTRAS [...] Andi Montoya MD 04/20/23 Final result Normal [facility] CT Cervical spine WO contras ton 04-20-2023 Radiology Study observation (narrative) [facility] CT HEAD WO CONTRASTon 2023 CT [...] Andi Montoya MD 04/20/23 Final result Normal [facility] CT Head WO contraston 2023 Radiology Study observation (narrative) [facility] No Panel Informationon 04-[address] abnormal ity identified in the brain. No acute osseous abnormality identified in the cervical spine. [facility] RIS CONSOLIDATED EXAMINATION: CT OF THE [...] There is no prevertebral soft tissue swelling. [facility] Andi Ruvalcaba MD - 04/20/2023 EXAMINATION: CT [...] osseous abnormality identified in the cervical spine. [facility] No Panel InformationOrdered By: Andi Montoya on 04-20-2023 [facility] Work Phone: Glucose Glucometer (BldC) [M ass/Vol]on 03-27-2023 Glucose [Mass/Vol] 151 mg/dL High 65-99 [facility] Glucose Poct Glucometerson 0 03-18-2023 Commemt1 Glu2: Cleaned Meter Normal [facility] Comment on above: Result Comment: PERF ORMED BY: [place] [address] PATHOLOGIST COMB WINDER SHA VALERA M.D. Performed By: #### G LULS #### Point of Care testing , Glucose [Mass/Vol] 87 mg/dL Normal [facility] Comment on above: Result Comment: [place] Glucose Reference Range is dependent on time and content of last meal. Glucose of more than 200 mg/dL in a nonstressed, ambulatory subject supports the diagnosis of Diabetes Mellitus. Performed By: #### G LULS #### Point of Care testing , HCG,Urineon 03-18-2023 Beta HCG ( test) Ql (U) Negative Normal [facility] Comment on above: Result Comment: PERF ORMED BY: [place] [address] PATHOLOGIST COMB WINDER SHA VALERA M.D. Performed By: #### U HCG #### [address] CBC AND AUTO DIFFon 03-16-19 24 ABSOLUTE BASOPHIL 0.0 X10E9/L Normal 0.0-0.2 [facility] Comment on above: Performed By: #### C BCA, CMP, 54975-5, TSHR #### [facility] ([id number]) [address] [place] [address] ABSOLUTE NEUTROPHIL 7.7 X10E9/L High 1.5-6.6 [facility] Comment on above: Performed By: #### Terrell BURGESS CMP, 54469-9, TSHR #### [facility] ([id number]) [address], [address] [place] [address] Basophils/100 WBC (Bld) 0.3 % Normal [facility] Comment on above: Performed By: #### Terrell BURGESS CMP, 99071-4, TSHR #### [facility] ([id number]) [address], [address] [place] [address] Eosinophils (Bld) [#/Vol] 0.1 10*3/uL Normal 0.0-0.4 [facility] Comment on above: Performed By: #### Terrell BURGESS CMP, 37501-3, TSHR #### [facility] ([id number]) [address], [address] [place] [address] Eosinophils/100 WBC (Bld) 1.1 % Normal [facility] Comment on above: Performed By: #### Terrell BURGESS CMP, 44139-6, TSHR #### [facility] ([id number]) [address], [address] [place] [address] Erythrocyte distribution width (RBC) [Ratio] 14.6 % Normal 11.5-15.0 [facility] Comment on above: Performed By: #### Terrell BURGESS CMP, 74319-6, TSHR #### [facility] ([id number]) [address], [address] [place] [address] Hematocrit (Bld) [Volume fraction] 45.7 % Normal 35-47 [facility] Comment on above: Performed By: #### Terrell BURGESS CMP, 66171-3, TSHR #### [facility] ([id number]) [address], [address] [place] [address] Hemoglobin (Bld) [Mass/Vol] 15.0 g/dL Normal 11.7-15.5 [facility] Comment on above: Performed By: #### C JAHAIRA BURGESS, 92248-3, TSHR #### [facility] ([id number]) [address], [address] [place] [address] Lymphocytes (Bld) [#/Vol] 2.4 10*3/uL Normal 1.0-3.5 [facility] Comment on above: Performed By: #### C ADITYA, CMP, 12192-0, TSHR #### [facility] ([id number]) [address], [facility] [address] [place] [address] Lymphocytes/100 WBC (Bld) 22.1 % Normal [facility] Comment on above: Performed By: #### Terrell BURGESS CMP, 40827-5, TSHR #### [facility] ([id number]) [address], [address] [place] [address] MCH (RBC) [Entitic mass] 29.0 pg Normal 27-34 [facility] Comment on above: Performed By: #### Terrell BURGESS CMP, 78027-5, TSHR #### [facility] ([id number]) [address], [address] [place] [address] MCHC (RBC) [Mass/Vol] 32.8 g/dL Normal 32-36 [facility] Comment on above: Performed By: #### Terrell BURGESS CMP, 78880-7, TSHR #### [facility] ([id number]) [address], [address] [place] [address] MCV (RBC) [Entitic vol] 88 fL Normal 80-100 [facility] Comment on above: Performed By: #### Terrell BURGESS, CMP, 73902-8, TSHR #### [facility] ([id number]) [address], [address] [place] [address] Monocytes (Bld) [#/Vol] 0.6 10*3/uL Normal 0-0.9 [facility] Comment on above: Performed By: #### C JAHAIRA BURGESS, 53518-7, TSHR #### [facility] ([id number]) [address], [address] [place] [address] Monocytes/100 WBC (Bld) 5.7 % Normal [facility] Comment on above: Performed By: #### Terrell BURGESS CMP, 06680-8, TSHR #### [facility] ([id number]) [address], [address] [place] [address] Neutrophils/100 WBC (Bld) 70.8 % Normal [facility] Comment on above: Performed By: #### Terrell BURGESS CMP, 33009-3, TSHR #### [facility] ([id number]) [address], [address] [place] [address] Platelet mean volume (Bld) [Entitic vol] 9.7 fL Normal 7-12 [facility] Comment on above: Performed By: #### Terrell BURGESS CMP, 58915-7, TSHR #### [facility] ([id number]) [address], [address] [place] [address] Platelets (Bld) [#/Vol] 303 10*3/uL Normal 150-450 [facility] Comment on above: Performed By: #### Terrell BURGESS CMP, 56812-5, TSHR #### [facility] ([id number]) [address], [address] [place] [address] RBC COUNT 5.17 X10E12/L Normal 3.80-5.20 [facility] Comment on above: Performed By: #### Terrell BURGESS CMP, 19383-6, TSHR #### [facility] ([id number]) [address], [address] [place] [address] WBC (Bld) [#/Vol] 10.9 10*3/uL Normal 4.0-11.0 [facility] Comment on above: Performed By: #### C BCA, CMP, 41253-6, TSHR #### [facility] ([id number]) [address], [address] [place] [address] COMPREHENSIVE METABOLIC PANE Dirk 03-16-2023 Albumin [Mass/Vol] 4.7 g/dL Normal 3.2-5.3 [facility] Comment on above: Performed By: #### C BCA, CMP, 08876-5, TSHR #### [facility] ([id number]) [address], [address] [place] [address] ALP [Catalytic activity/Vol] 74 U/L Normal 39-130 [facility] Comment on above: Performed By: #### C BCA, CMP, 01443-3, TSHR #### [facility] ([id number]) [address], [address] [place] [address] ALT [Catalytic activity/Vol] 22 U/L Normal 0-31 [facility] Comment on above: Performed By: #### C BCA, CMP, 41481-7, TSHR #### [facility] ([id number]) [address], [address] [place] [address] Anion gap [Moles/Vol] 12 mmol/L Normal 5-15 [facility] Comment on above: Performed By: #### C BCA, CMP, 95650-3, TSHR #### [facility] ([id number]) [address], [address] [place] [address] AST [Catalytic activity/Vol] 20 U/L Normal 0-41 [facility] Comment on above: Performed By: #### C BCA, CMP, 57378-3, TSHR #### [facility] ([id number]) [address], [address] [place] [address] Bilirubin [Mass/Vol] 0.5 mg/dL Normal 0.3-1.2 [facility] Comment on above: Performed By: #### C BCA, CMP, 67342-5, TSHR #### [facility] ([id number]) [address], [address] [place] [address] Calcium [Mass/Vol] 9.9 mg/dL Normal 8.5-10.5 [facility] Comment on above: Performed By: #### C BCA, CMP, 98853-3, TSHR #### [facility] ([id number]) [address], [address] [place] [address] Chloride [Moles/Vol] 105 mmol/L Normal 98-109 [facility] Comment on above: Performed By: #### C BCA, CMP, 47629-7, TSHR #### [facility] ([id number]) [address], [address] [place] [address] CO2 [Moles/Vol] 25 mmol/L Normal 22-32 [facility] Comment on above: Performed By: #### C BCA, CMP, 74249-1, TSHR #### [facility] ([id number]) [address], [address] [place] [address] Creatinine [Mass/Vol] 0.74 mg/dL Normal 0.40-1.00 [facility] Comment on above: Result Comment: METH OD TRACEABLE TO IDMS STANDARD Performed By: #### C BCA, CMP, 44080-6, TSHR #### [facility] ([id number]) [address], [address] [place] [address] eGFR (CKD-EPI) NON-RACE DEPENDENT >90 Normal >59 [facility] Comment on above: Result Comment: Reported eGFR is based on the CKD-EPI 2020 equation that does not use a race coefficient. Performed By: #### C BCA, CMP, 69949-6, TSHR #### [facility] ([id number]) [address], [address] [place] [address] Glucose [Mass/Vol] 143 mg/dL High 65-99 [facility] Comment on above: Performed By: #### C JAHAIRA BURGESS, 60385-5, TSHR #### [facility] ([id number]) [address], [address] [place] [address] Potassium [Moles/Vol] 3.8 mmol/L Normal 3.5-5.0 [facility] Comment on above: Performed By: #### C ADITYA CMP, 19646-0, TSHR #### [facility] ([id number]) [address], [address] [place] [address] Protein [Mass/Vol] 7.8 g/dL Normal 6.0-8.0 [facility] Comment on above: Performed By: #### C JAHAIRA BURGESS, 11966-3, TSHR #### [facility] ([id number]) [address], [address] [place] [address] Sodium [Moles/Vol] 142 mmol/L Normal 134-146 [facility] Comment on above: Performed By: #### C JAHAIRA BURGESS, 36961-7, TSHR #### [facility] ([id number]) [address], [address] [place] [address] Urea nitrogen [Mass/Vol] 17 mg/dL Normal 5-23 [facility] Comment on above: Performed By: #### C ADITYA CMP, 30352-0, TSHR #### [facility] ([id number]) [address], [address] [place] [address] HGB A1C (GLYCO-HGB)on 2023 Glucose [Mass/Vol] 117 mg/dL Normal [facility] Comment on above: Performed By: #### C ADITYA, CMP, 69504-7, TSHR #### [facility] ([id number]) [address], [address] [place] [address] HbA1c (Bld) [Mass fraction] 5.7 % High 4.4-5.6 [facility] Comment on above: Result Comment: NOTE ADA Guidelines Result HgbA1c Normal : less than 5.7 % Prediabetes : 5.7 % to 6.4 % Diabetes : > 6.4 % Use with caution in patients with abnormal hemoglobin variants as the half-life of red blood cells and in vivo glycation rates are affected. Performed By: #### Terrell BURGESS, CMP, 32142-1, TSHR #### [facility] ([id number]) [address], [address] [place] [address] Lipid 1996 panelon 4 Cholesterol [Mass/Vol] 132 mg/dL Low 150-200 [facility] Comment on above: Performed By: ###Christopher Tejada BCA, CMP, 47332-6, TSHR #### [facility] ([id number]) [address], [address] [place] [address] Cholesterol in HDL [Mass/Vol] 58 mg/dL Normal >39 [facility] Comment on above: Result Comment: HDL <40 mg/dL - High Risk HDL > or = 40mg/dL- Desirable HDL >60 mg/dL - Negative Risk Performed By: #### Terrell BURGESS, CMP, 60321-5, TSHR #### [facility] ([id number]) [address], [address] [place] [address] Cholesterol in LDL [Mass/Vol] 51 mg/dL Normal <130 [facility] Comment on above: Result Comment: LDL <100 mg/dL - Desirable LDL >160 mg/dL - High Risk Performed By: #### C BCA, CMP, 41872-2, TSHR #### [facility] ([id number]) [address], [address] [place] [address] Cholesterol in VLDL [Mass/Vol] 23 mg/dL Normal 0-30 [facility] Comment on above: Performed By: #### C BCA, CMP, 74473-6, TSHR #### [facility] ([id number]) [address], [address] [place] [address] CHOLESTEROL:HDL 2.3 Normal 1.0-5.0 [facility] Comment on above: Performed By: #### C BCA, CMP, 05821-5, TSHR #### [facility] ([id number]) [address], [address] [place] [address] Triglyceride [Mass/Vol] 114 mg/dL Normal 27-150 [facility] Comment on above: Performed By: #### C BCA, CMP, 36261-4, TSHR #### [facility] ([id number]) [address], [address] [place] [address] MAMM SCREENING BILATERAL W C generation mechanic helper 03-16-2023 MAMM SCREENING BILATERAL W CAD MAMM [...] 3:25 PM 0A a ADDITIONAL I Normal [facility] TSH WITH REFLEXon 03-16-2023 TSH 0.55 uIU/mL Normal 0.49-4.67 [facility] Comment on above: Performed By: #### C BCA, CMP, 59147-4, TSHR #### [facility] ([id number]) [address] [place] [address] PT - Assessmentson 3 PT - Assessments [id number]#1.00CD:12 [address] [facility] [address] - Assessmentson 3 ST - Assessments [id number]#1.00CD:127 Normal [facility] Consenton 09-25-2022 Consent [id number]#1.00CD:127 [facility] 2022 Outside Records [id number]#1.00CD:127 [address] [facility] ST - [place] 2022 ST - Orders [id number]#1.00CD:127 Normal [facility] ST - Orders [id number]#1.00CD:127 Normal [facility] ST - Otheron 2022 ST - Other [id number]#1.00CD:127 Normal [facility] PAP ACOG PANEL 2: 30 to 65on 05-27-2022 . . Normal [facility] Comment on above: Result Comment: Perf ormed at: WB Performed By: #### 4 [id number] #### [facility] [address] [address] [address] Do Aguilar Age Gdln ACOG Testing 30-65 Normal [facility] Comment on above: Performed By: #### 4 069685 #### [facility] [address] [address] [address] Do Aguilar DIAGNOSIS: Comment Normal [facility] Comment on above: Result Comment: NEGA TIVE FOR INTRAEPITHELIAL LESION OR MALIGNANCY. Performed at: WB Performed By: #### 4 [id number] #### [facility] [address] [place] [address] Dr. Do Aguilar HPV Aptima Negative Normal Negative [facility] Comment on above: Result Comment: This nucleic acid amplification test detects fourteen high-risk HPV types (16,18,31,33,35,39,45,51,52,56,58,59,66,68) without differentiation. Performed at: =G Performed By: #### 4 [id number] #### [facility] [address] [place] [address] Dr. Do Aguilar HPV Genotype Reflex Comment Normal [facility] Comment on above: Result Comment: Crit eria not met, HPV Genotype not performed. Performed at: WB Performed By: #### 4 [id number] #### [facility] [address] [place] [address] Dr. Do Aguilar Methodology: Comment Normal [facility] Comment on above: Result Comment: This liquid based ThinPrep(R) pap test was screened with the use of an image guided system. Performed at: WB Performed By: #### 4 [id number] #### [facility] [address] [place] [address] Dr. Do Aguilar Note: Comment Normal [facility] Comment on above: Result [...] Performed at: WB Performed By: #### 4 [id number] #### [facility] [address] [address] [address] Do Aguilar Performed by: Comment Normal [facility] Comment on above: Result Comment: Melissa Ramachandran, Digital Hardware Design Engineer (ASCP) Performed at: WB Performed By: #### 4 [id number] #### [facility] [address] [address] [address] Do Aguilar Specimen adequacy: Comment Normal [facility] Comment on above: Result Comment: Sati sfactory for evaluation. Endocervical and/or squamous metaplastic cells (endocervical component) are present. Performed at: WB Performed By: #### 4 [id number] #### [facility] [address] [place] [address] Dr. Do Aguilar HEPATITIS C AB CASCADE TO QU ANT PCR GENOon 02-18-2022 HCV AB <0.1 Normal 0.0-0.9 [facility] Comment on above: Performed By: #### H EPCASC #### [facility] [address] [place] [address] Dr. Do Aguilar Interpretation: Comment Normal [facility] Comment on above: Result Comment: Nega tive Not infected with HCV, unless recent infection is suspected or other evidence exists to indicate HCV infection. Performed By: #### H EPCASC #### [facility] [address] [place] [address] Dr. Do Aguilar LIVER PROFILEon 02-17-2022 Albumin [Mass/Vol] 3.6 g/dL Normal 3.4-5.0 [facility] Comment on above: Performed By: #### L IVER #### [facility] [address] [place] [address] Dr. Do Aguilar Albumin/Globulin [Mass ratio] 0.9 {ratio} Normal [facility] Comment on above: Performed By: #### L IVER #### [facility] [address] [place] [address] Dr. Do Aguilar ALP [Catalytic activity/Vol] 79 U/L Normal 46-116 [facility] Comment on above: Performed By: #### L IVER #### [facility] [address] [address] [address] Do Aguilar ALT [Catalytic activity/Vol] 51 U/L Normal 14-59 [facility] Comment on above: Performed By: #### L IVER #### [facility] [address] [address] [address] Do Aguilar AST [Catalytic activity/Vol] 33 U/L Normal 15-37 [facility] Comment on above: Performed By: #### L IVER #### [facility] [address] [address] [address] Do Aguilar BILI, CONJUGATED 0.1 mg/dL Normal 0.0-0.2 [facility] Comment on above: Performed By: #### L IVER #### [facility] [address] [place] [address] Dr. Do Aguilar Bilirubin [Mass/Vol] 0.3 mg/dL Normal 0.2-1.0 [facility] Comment on above: Performed By: #### L IVER #### [facility] [address] [place] [address] Dr. Do Aguilar Globulin (S) [Mass/Vol] 4.2 g/dL Normal [facility] Comment on above: Performed By: #### L IVER #### [facility] [address] [place] [address] Dr. Do Aguilar Protein [Mass/Vol] 7.8 g/dL Normal 6.4-8.2 [facility] Comment on above: Performed By: #### L IVER #### [facility] [address] [address] [address] Do Aguilar TSHon 02-17-2022 TSH 0.457 uIU/mL Normal 0.358-3.74 0 [facility] Comment on above: Performed By: #### T SH #### [facility] [address] [address] [address] Do Aguilar VITAMIN B12on 02-17-2022 Cobalamin (Vitamin B12) [Mass/Vol] 1864.0 pg/mL Critically high 193.0-986. 0 [facility] Comment on above: Performed By: #### V ITB12 #### [facility] [address] [address] [address] Do Aguilar History and Physicalon 12-04 History and Physical [id number]#1.00[facility] Operative Report - Surgeon/P godwin 12-04-2016 Operative Report - Surgeon/Physician [id number] Coding Summaryon 11-26-2016 Coding Summary CODING DATE: 017 [facility] STATUS: Home PAYOR: Medicaid HMO ADMIT DX: REASON FOR VISIT DX: R10.13 Epigastric pain R10.11 Right upper quadrant pain FINAL DX: PRINCIPAL: K29.70 Gastritis, unspecified, without bleeding SECONDARY: PROCEDURES DOCTOR NAME DATE 82864 EsophagogastroduodenTed mena Richard MD 11/21/2016 flexible, transoral; with biopsy, single or multiple NOTE: The code number assigned matches the documented diagnosis and / or procedure in the patient's chart. However, the narrative phrase printed from the coding software may appear abbreviated, or result in slightly different terminology. Coded By: Rosalba Laureano Date Saved: 11/26/2016 01:[address] [facility] Consent Formson 11-24-2016 Consent Forms [id number]#[address] [place] [address] Intraoperative Noteon 2016 Intraoperative Note [id number]#[address] [place] [address] Intraoperative Note [id number]#[address] Operative Report - Surgeon/P godwin 11-24-2016 [...] in two weeks.Juan Ramon Jean M.D.JOB #: [id number]: 11/21/2016T: 11/21/2016[Electronically Signed on: 12/03/2016 07:09 EDT] Juan Ramon Jean MD Generated Domain User for [id number][Verified on: 12/03/2016 07:09 EDT] Juan Ramon Jean MD[Transcribed on: 11/21/2016 11:37 EDT]GDU Normal [facility] Telemetry Stripson 7 Telemetry Strips [id number]#1.00OTGTIFF [facility] Telemetry Strips [id number]#1.00OTGTIFF [facility] H. Pylori Gastricon 11-22-19 17 H. Pylori Rico Int Ctrl Pass [facility] Comment on above: Order Comment: H. (A NTRUM) Result Comment: Pass Performed By: #### 2 [id number] ####[facility] (DEFAULT)[address] [place] [address] H. Pylori Gastric Negative Normal Negative [facility] Comment on above: Order Comment: H. (A NTRUM) Result Comment: Nega tive Performed By: #### 2 [id number] ####[facility] (DEFAULT)[address] [place] [address] Inpatient Clinical Summaryon 11-21-2016 Inpatient Clinical Summary [facility] SURGERYClinical Discharge SummaryPERSON INFORMATIONName ROSE KARMA BANEGAS Age 36 Years 80Sex FEMALE Language Emirati PCP HAZEL, DAVIDMarital Status [facility] Service Ambulatory SurgeryMRN [id number] Acct# Arrival 11/21/16 07:22:21Visit Reason EGD - EPIGASTRIC ABDOMINAL PAIN Acuity LOS 013 23:19Address:[address] [facility] [address]Xmefinp:PROVIDER INFORMATIONVITALS INFORMATIONVital Sign Triage LatestTemp OralTemp Temporal 36.4 DegC 36.4 DegCTemp IntravascularTemp AxillaryTemp [id number] Sat 100 % 97 %Respiratory Rate 16 [...] INFORMATIONInstructions:Fo llow up:With: Address: When:Juan Ramon Jean [address] [place] [id number] [facility] (1) Within 2 to 4 weeksComments:Call for follow up appointmentWith: Address: When:DOMENICA OLIVA [address] [place] [id number] Business (1)DIAGNOSISAcute gastritisComment:PHYS DOC NOTES Normal [facility] Inpatient Patient Summaryon 11-21-2016 Inpatient Patient Summary [address] [address] Patient Discharge InstructionsName: KARMA SRDOB: [birth year] Address: [address] [place] [address] Care Provider:Name: DOMENICA OLIVAPhone: Discharge Diagnosis: Acute [...] decisions or sign any legal documentsKettering Health would like to thank you for allowing us to assist you with your healthcare needs. The following includes patient education materials and information regarding your injury/illness.KARMA SR has been given the following list of follow-up instructions, prescriptions, and patient education materials:Follow-up InstructionsWith: Address: When:Juan Ramon Jean [address] [place] [phone] [facility] (1) Within 2 to 4 weeksComments:Call for follow up appointmentWith: Address: When:DOMENICA OLIVA [address] [place] [phone] Business (1)MedicationsDuring the course of your visit, [...] the Answerwww.cdc.gov/getsmart GET SMART Know When Antibiotics [facility] ServicesOhio[facility] Hospitalers for Disease Control and Prevention October 2013 [facility] Intra-Op Record Summary Primary Physician: Juan Ramon Jean MD Finalized Date/Time: 11/21/16 08:37:38 Pt. Name: KARMA SR/Sex: 1980 FEMALE Med Rec #: [id number] Physician: Juan Ramon Jean MD Financial #: [id number] Pt. Type: D Room/Bed: / Admit/Disch: 11/21/16 [...] Jane RN Role Performed Surgeon - Primary Fingerer Fingerer Time In 11/21/16 08:06:00 11/21/16 08:06:00 11/21/16 [...] 11/21/16 08:37 DBARONE Modify Pick List Normal [facility]R Endo Postoperative Benjamin rdon 11-21-2016 [facility] Endo Postoperative Record [facility] Endo Phase II Record Summary Primary Physician: Juan Ramon Jean MD Finalized Date/Time: 11/21/16 10:02:07 Pt. Name: KARMA SR /Sex: 1980 FEMALE Med Rec #: [id number] Physician: Juan Ramon Jean MD Financial #: [id number] Pt. Type: D Room/Bed: / Admit/Disch: 11/21/16 [...] Signed By: Cammy Barroso RN 11/21/16 10:02 [facility] MAGR Endo Preoperative Recor don 11-21-2016 [facility] Endo Preoperative Record [facility] Endo Pre-Op Record Summary Primary Physician: Juan Ramon Jean MD Finalized Date/Time: 11/21/16 08:27:58 Pt. Name: KARMA SR Mary/Sex: 1980 FEMALE Med Rec #: [id number] Physician: Juan Ramon Jean MD Financial #: [id number] Pt. Type: D Room/Bed: / Admit/Disch: 11/21/16 [...] Signed By: Cammy Barroso RN 11/21/16 08:27 [facility] Test Urine 1on U Preg Negative [facility] Comment on above: Result Comment: Nega tive Performed By: #### [id number] ####[facility] (DEFAULT)[address] [place] [address] U Preg Internal Control Pass [facility] Comment on above: Result Comment: Pass Performed By: #### [id number] ####[facility] (DEFAULT)[address] [place] [address] Vital Signs Date Time Vital Sign Value Performing Clinician Facility 01-21-2024 09:35-0500 Body height 160.02 cm Rory Driver [employer]OUNTANT [employer] Work Phone: [facility] 01-21-2024 09:35-0500 Body mass index (BMI) [Ratio] 38.8 kg/m2 Rory Driver [employer] Work Phone: [facility] 01-21-2024 09:35-0500 Body weight 99.4 kg Rory Driver [employer] Work Phone: [facility] 01-13-2024 17:30-0500 Diastolic blood pressure 71 mm[Hg] Lisette Junior DO Work Phone: [email or web address] 01-13-2024 17:30-0500 Heart rate 95 /min Lisette Junior DO Work Phone: [email or web address] 01-13-2024 17:30-0500 SaO2% (BldA) [Mass fraction] 99 % Lisette Junior DO Work Phone: [email or web address] 01-13-2024 17:30-0500 Systolic blood pressure 131 mm[Hg] Lisette Junior DO Work Phone: [email or web address] 01-13-2024 15:30-0500 Respiratory rate 16 /min Lisette Junior DO Work Phone: [email or web address] 01-13-2024 14:24-0500 Body height 160 cm Lisette Junior DO Work Phone: [email or web address] 01-13-2024 14:24-0500 Body mass index (BMI) [Ratio] 37.55 kg/m2 Lisette Junior DO Work Phone: [email or web address] 01-13-2024 14:24-0500 Body temperature 98.1 [degF] Lisette Junior DO Work Phone: [email or web address] 01-13-2024 14:24-0500 Body weight 96.16 kg Lisette Junior DO Work Phone: [facility] 11-30-2023 11:10-0400 Body height 160 cm Brittany Spencerr AUTOMATIC TYPEWRITER INSPECTOR Work Phone: [facility] 11-30-2023 11:10-0400 Body mass index (BMI) [Ratio] 35.96 kg/m2 Brittany Gillmor AUTOMATIC TYPEWRITER INSPECTOR Work Phone: [facility] 11-30-2023 11:10-0400 Body weight 92.08 kg Brittany Gillmor AUTOMATIC TYPEWRITER INSPECTOR Work Phone: [facility] 11-30-2023 10:26-0400 Diastolic blood pressure 70 mm[Hg] Brittany Gottimor AUTOMATIC TYPEWRITER INSPECTOR Work Phone: [facility] 11-30-2023 10:26-0400 Heart rate 90 /min Brittany Spencerr AUTOMATIC TYPEWRITER INSPECTOR Work Phone: [facility] 11-30-2023 10:26-0400 SaO2% (BldA) [Mass fraction] 96 % Brittany Gottimor AUTOMATIC TYPEWRITER INSPECTOR Work Phone: [facility] 11-30-2023 10:26-0400 Systolic blood pressure 118 mm[Hg] Brittany Gottimor AUTOMATIC TYPEWRITER INSPECTOR Work Phone: [facility] 10-08-2023 09:17-0400 Body height 160 cm Dwayne Khoury MD Work Phone: [facility] 10-08-2023 09:17-0400 Body mass index (BMI) [Ratio] 36.36 kg/m2 Dwayne Khoury MD Work Phone: [facility] 10-08-2023 09:17-0400 Body weight 93.1 kg Dwayne Khoury MD Work Phone: [facility] 10-08-2023 09:17-0400 Diastolic blood pressure 86 mm[Hg] Dwayne Khoury MD Work Phone: [facility] 10-08-2023 09:17-0400 Heart rate 102 /min Dwayne Khoury MD Work Phone: [facility] 10-08-2023 09:17-0400 Respiratory rate 16 /min Dwayne Khoury MD Work Phone: [facility] 10-08-2023 09:17-0400 Systolic blood pressure 145 mm[Hg] Dwayne Khoury MD Work Phone: [facility] 06-02-2023 14:32-0400 Body mass index (BMI) [Ratio] 36.67 kg/m2 Deepika Robledo MD Work Phone: [facility] 06-02-2023 14:32-0400 Body weight 93.89 kg Deepika Robledo MD Work Phone: [facility] 06-02-2023 14:32-0400 Diastolic blood pressure 102 mm[Hg] Deepika Robledo MD Work Phone: [facility] 06-02-2023 14:32-0400 Heart rate 83 /min Deepika Robledo MD Work Phone: [facility] 06-02-2023 14:32-0400 Systolic blood pressure 136 mm[Hg] Deepika Robledo MD Work Phone: [facility] 05-21-2023 11:22-0400 Body height 160.02 cm [facility] 05-21-2023 11:22-0400 Body mass index (BMI) [Ratio] 36.5 kg/m2 [facility] 05-21-2023 11:22-0400 Body weight 93.44 kg [facility] 05-21-2023 10:39-0400 Body height 160.02 cm [facility] 05-21-2023 10:39-0400 Body mass index (BMI) [Ratio] 36.5 kg/m2 [facility] 05-21-2023 10:39-0400 Body weight 93.49 kg [facility] 05-21-2023 10:39-0400 Diastolic blood pressure 77 mm[Hg] [facility] 05-21-2023 10:39-0400 Heart rate 105 /min [facility] 05-21-2023 10:39-0400 Respiratory rate 18 /min [facility] 05-21-2023 10:39-0400 SaO2% (BldA) [Mass fraction] 95 % [facility] 05-21-2023 10:39-0400 Systolic blood pressure 114 mm[Hg] [facility] 04-28-2023 11:21-0500 Body height 160 cm Gaurav Sellers PA Work Phone: [facility] 04-28-2023 11:21-0500 Body mass index (BMI) [Ratio] 36.14 kg/m2 Gaurav Sellers PA Work Phone: [facility] 04-28-2023 11:21-0500 Body weight 92.53 kg Gaurav Sellers PA Work Phone: [facility] 04-28-2023 11:21-0500 Diastolic blood pressure 82 mm[Hg] Gaurav Sellers PA Work Phone: [facility] 04-28-2023 11:21-0500 Heart rate 87 /min Gaurav Mercerenberg PA Work Phone: [facility] 04-28-2023 11:21-0500 Respiratory rate 16 /min Gaurav Sellers PA Work Phone: [facility] 04-28-2023 11:21-0500 SaO2% (BldA) [Mass fraction] 97 % Gaurav Sellers PA Work Phone: [facility] 04-28-2023 11:21-0500 Systolic blood pressure 122 mm[Hg] Gaurav Sellers PA Work Phone: [facility] 04-20-2023 12:41-0500 Body mass index (BMI) [Ratio] 36.49 kg/m2 Shawna Rumlincolng DO Work Phone: [facility] 04-20-2023 12:41-0500 Body weight 93.44 kg Shawna Rumschlag DO Work Phone: [facility] [employer] 04-20-2023 12:41-0500 Diastolic blood pressure 76 mm[Hg] Shawna Rumschlag DO Work Phone: [facility] 04-20-2023 12:41-0500 Heart rate 83 /min Shawna Rumschlag DO Work Phone: [facility] [employer] 04-20-2023 12:41-0500 Respiratory rate 16 /min Shawna Rumschlag DO Work Phone: [facility] [employer] 04-20-2023 12:41-0500 SaO2% (BldA) [Mass fraction] 98 % Shawna Rumschlag DO Work Phone: [facility] [employer] 04-20-2023 12:41-0500 Systolic blood pressure 129 mm[Hg] Shawna Rumschlag DO Work Phone: [facility] [employer] 04-20-2023 12:39-0500 Body temperature 97.3 [degF] Shawna Rumschlag DO Work Phone: [facility] 03-18-2023 11:30-0500 Diastolic blood pressure 84 mm[Hg] MD Yo Blank Work Phone: [facility] 03-18-2023 11:30-0500 Heart rate 95 /min MD Yo Blank Work Phone: [facility] 03-18-2023 11:30-0500 Respiratory rate 16 /min MD Yo Blank Work Phone: [facility] 03-18-2023 11:30-0500 SaO2% (BldA) [Mass fraction] 99 % MD Yo Blank Work Phone: [facility] 03-18-2023 11:30-0500 Systolic blood pressure 123 mm[Hg] MD Yo Blank Work Phone: [facility] 03-05-2023 09:15-0500 Body height 160.02 cm Gayathri Scally Other [employer] Other 03-05-2023 09:15-0500 Body mass index (BMI) [Ratio] 37.57 kg/m2 Gayathri Scally Other [employer] Other 03-05-2023 09:15-0500 Body weight 96.21 kg Gayathri Scally Other [employer] Other 03-05-2023 09:15-0500 Diastolic blood pressure 89 mm[Hg] Gayathri Scally Other [employer] Other 03-05-2023 09:15-0500 Respiratory rate 18 /min Gayathri Scally Other [employer] Other 03-05-2023 09:15-0500 SaO2% (BldA) [Mass fraction] 96 % Gayathri Scally Other [employer] Other 03-05-2023 09:15-0500 Systolic blood pressure 122 mm[Hg] Gayathri Scally Other [employer] Other 03-02-2023 19:24-0500 Body height 160 cm Sil Sullivan DO Work Phone: [facility] 03-02-2023 19:24-0500 Body mass index (BMI) [Ratio] 36.31 kg/m2 Sil Sullivan DO Work Phone: [facility] 03-02-2023 19:24-0500 Body temperature 98.29 [degF] Sil Sullivan DO Work Phone: [facility] 03-02-2023 19:24-0500 Body weight 92.99 kg Sil Sullivan DO Work Phone: [facility] 03-02-2023 19:24-0500 Diastolic blood pressure 98 mm[Hg] Sil Sullivan DO Work Phone: [facility] 03-02-2023 19:24-0500 Heart rate 82 /min Sil Sullivan DO Work Phone: [facility] 03-02-2023 19:24-0500 Respiratory rate 18 /min Sil Sullivan DO Work Phone: [facility] 03-02-2023 19:24-0500 SaO2% (BldA) [Mass fraction] 98 % Sil Sullivan DO Work Phone: [facility] 03-02-2023 19:24-0500 Systolic blood pressure 139 mm[Hg] Sil Sullivan DO Work Phone: [facility] 02-05-2023 09:20-0500 Body height 160.02 cm Jan Garg Other [employer] Other 02-05-2023 09:20-0500 Body mass index (BMI) [Ratio] 36.66 kg/m2 Jan Garg Other [employer] Other 02-05-2023 09:20-0500 Body weight 93.9 kg Jan Garg Other [employer] Other 01-15-2023 09:45-0500 Body height 160.02 cm Gayathri Angie Other [employer] Other 01-15-2023 09:45-0500 Body mass index (BMI) [Ratio] 36.68 kg/m2 Gayathri Scally Other [employer] Other 01-15-2023 09:45-0500 Body weight 93.94 kg Gayathri Scally Other [employer] Other 01-15-2023 09:45-0500 Diastolic blood pressure 83 mm[Hg] Gayathri Scally Other [employer] Other 01-15-2023 09:45-0500 Respiratory rate 18 /min Gayathri Scally Other [employer] Other 01-15-2023 09:45-0500 SaO2% (BldA) [Mass fraction] 99 % Gyaathri Scally Other [employer] Other 01-15-2023 09:45-0500 Systolic blood pressure 119 mm[Hg] Gayathri Scally Other [employer] Other 01-07-2023 10:00-0500 Body height 160.02 cm Jan Garg Other [employer] Other 01-07-2023 10:00-0500 Body mass index (BMI) [Ratio] 36.13 kg/m2 Jan Garg Other [employer] Other 01-07-2023 10:00-0500 Body weight 92.53 kg Jan Britany Other [employer] Other 01-07-2023 10:00-0500 Diastolic blood pressure 74 mm[Hg] Jan Scovanjillian Other [employer] Other 01-07-2023 10:00-0500 Systolic blood pressure 118 mm[Hg] Jan Scovanjillian Other [employer] Other 08-28-2022 09:00-0400 Body height 160.02 cm Tamar Fitt Other [employer] Other 08-28-2022 09:00-0400 Body mass index (BMI) [Ratio] 35.8 kg/m2 Tamar Fitt Other [employer] Other 08-28-2022 09:00-0400 Body weight 91.67 kg Tamar Fitt Other [employer] Other 07-29-2022 10:15-0400 Body height 160.02 cm Gayathri Scally Other [employer] Other 07-29-2022 10:15-0400 Body mass index (BMI) [Ratio] 35.18 kg/m2 Gayathri Scally Other [employer] Other 07-29-2022 10:15-0400 Body weight 90.08 kg Gayathri Scally Other [employer] Other 07-29-2022 10:15-0400 Diastolic blood pressure 84 mm[Hg] Gayathri Scally Other [employer] Other 07-29-2022 10:15-0400 Respiratory rate 18 /min Gayathri Scally Other [employer] Other 07-29-2022 10:15-0400 SaO2% (BldA) [Mass fraction] 99 % Gayathri Scally Other [employer] Other 07-29-2022 10:15-0400 Systolic blood pressure 127 mm[Hg] Gayathri Scally Other [employer] Other 05-20-2022 11:15-0400 Body height 160.02 cm Gayathri Scally Other [employer] Other 05-20-2022 11:15-0400 Body mass index (BMI) [Ratio] 34.52 kg/m2 Gayathri Scally Other [employer] Other 05-20-2022 11:15-0400 Body weight 88.41 kg Gayathri Scally Other [employer] Other 05-20-2022 11:15-0400 Diastolic blood pressure 82 mm[Hg] Gayathri Scally Other [employer] Other 05-20-2022 11:15-0400 Respiratory rate 18 /min Gayathri Scally Other [employer] Other 05-20-2022 11:15-0400 SaO2% (BldA) [Mass fraction] 97 % Gayathri Scally Other [employer] Other 05-20-2022 11:15-0400 Systolic blood pressure 121 mm[Hg] Gayathri Scally Other [employer] Other 04-08-2022 11:15-0500 Body height 160.02 cm Gayathri Scally Other [employer] Other 04-08-2022 11:15-0500 Body mass index (BMI) [Ratio] 34.49 kg/m2 Gayathri Scally Other [employer] Other 04-08-2022 11:15-0500 Body weight 88.32 kg Gayathri Scally Other [employer] Other 04-08-2022 11:15-0500 Diastolic blood pressure 77 mm[Hg] Gayathri Scally Other [employer] Other 04-08-2022 11:15-0500 Respiratory rate 18 /min Gayathri Scally Other [employer] Other 04-08-2022 11:15-0500 SaO2% (BldA) [Mass fraction] 98 % Gayathri Scally Other [employer] Other 04-08-2022 11:15-0500 Systolic blood pressure 110 mm[Hg] Gayathri Scally Other [employer] Other 04-08-2022 10:15-0500 Body height 160.02 cm Tamar Fitt Other [employer] Other 04-08-2022 10:15-0500 Body mass index (BMI) [Ratio] 34.49 kg/m2 Tamar Fitt Other [employer] Other 04-08-2022 10:15-0500 Body weight 88.32 kg Tamar Fitt Other [employer] Other 02-26-2022 10:00-0500 Body height 160.02 cm Tamar Fitt Other [employer] Other 02-25-2022 11:45-0500 Body height 160.02 cm Gayathri Scally Other [employer] Other 02-25-2022 11:45-0500 Body mass index (BMI) [Ratio] 36.63 kg/m2 Gayathri Scally Other [employer] Other 02-25-2022 11:45-0500 Body weight 93.8 kg Gayathri Scally Other [employer] Other 02-25-2022 11:45-0500 Diastolic blood pressure 78 mm[Hg] Gayathri Scally Other [employer] Other 02-25-2022 11:45-0500 Respiratory rate 18 /min Gayathri Scally Other [employer] Other 02-25-2022 11:45-0500 SaO2% (BldA) [Mass fraction] 97 % Gayathri Scally Other [employer] Other 02-25-2022 11:45-0500 Systolic blood pressure 109 mm[Hg] Gayathri Scally Other [employer] Other 01-14-2022 11:45-0500 Body height 160.02 cm Gayathri Scally Other [employer] Other 01-14-2022 11:45-0500 Body mass index (BMI) [Ratio] 39.37 kg/m2 Gayathri Scally Other [employer] Other 01-14-2022 11:45-0500 Body weight 100.84 kg Gayathri Scally Other [employer] Other 01-14-2022 11:45-0500 Diastolic blood pressure 88 mm[Hg] Gayathri Scally Other [employer] Other 01-14-2022 11:45-0500 Respiratory rate 18 /min Gayathri Scally Other [employer] Other 01-14-2022 11:45-0500 SaO2% (BldA) [Mass fraction] 97 % Gayathri Scally Other [employer] Other 01-14-2022 11:45-0500 Systolic blood pressure 124 mm[Hg] Gayathri Scally Other [employer] Other 12-04-2021 12:00-0400 Body height 160.02 cm Gayathri Scally Other [employer] Other 12-04-2021 12:00-0400 Body mass index (BMI) [Ratio] 39.73 kg/m2 Gayathri Scally Other [employer] Other 12-04-2021 12:00-0400 Body weight 101.74 kg Gayathri Scally Other [employer] Other 12-04-2021 12:00-0400 Diastolic blood pressure 74 mm[Hg] Gayathri Scally Other [employer] Other 12-04-2021 12:00-0400 Respiratory rate 18 /min Gayathri Scally Other [employer] Other 12-04-2021 12:00-0400 SaO2% (BldA) [Mass fraction] 95 % Gayathri Scally Other [employer] Other 12-04-2021 12:00-0400 Systolic blood pressure 110 mm[Hg] Gayathri Adams Other [employer] Other 10-29-2021 11:30-0400 Body height 160.02 cm Yo Blank Other [employer] Other 10-29-2021 11:30-0400 Body mass index (BMI) [Ratio] 38.61 kg/m2 Yo Blank Other [employer] Other 10-29-2021 11:30-0400 Body weight 98.88 kg Yo Blank Other [employer] Other 10-29-2021 11:30-0400 Diastolic blood pressure 74 mm[Hg] Yo Blank Other [employer] Other 10-29-2021 11:30-0400 Systolic blood pressure 111 mm[Hg] Yo Blank Other [employer] Other 10-22-2021 13:26-0400 Body temperature 97.2 [degF] Shawna Rumschlag DO Work Phone: [employer] 10-22-2021 13:26-0400 Diastolic blood pressure 71 mm[Hg] Shawna Rumschlag DO Work Phone: [employer] 10-22-2021 13:26-0400 Heart rate 85 /min Shawna Rumschlag DO Work Phone: [employer] 10-22-2021 13:26-0400 Respiratory rate 16 /min Shawna Rumschlag DO Work Phone: [employer] 10-22-2021 13:26-0400 SaO2% (BldA) [Mass fraction] 94 % Shawna Rumschlag DO Work Phone: [employer] 10-22-2021 13:26-0400 Systolic blood pressure 131 mm[Hg] Shawna Rumschlag DO Work Phone: [facility] [employer] 10-11-2021 23:48-0400 Body height 160 cm Daniel Adkins MD Work Phone: [employer] 10-11-2021 23:48-0400 Body mass index (BMI) [Ratio] 36.67 kg/m2 Daniel Adkins MD Work Phone: [employer] 10-11-2021 23:48-0400 Body temperature 98.6 [degF] Daniel Adkins MD Work Phone: [employer] 10-11-2021 23:48-0400 Body weight 93.89 kg Daniel Adkins MD Work Phone: [employer] 10-11-2021 23:48-0400 Diastolic blood pressure 88 mm[Hg] Daniel Adkins MD Work Phone: [employer] 10-11-2021 23:48-0400 Heart rate 97 /min Daniel Adkins MD Work Phone: [employer] 10-11-2021 23:48-0400 Respiratory rate 16 /min Daniel Adkins MD Work Phone: [employer] 10-11-2021 23:48-0400 SaO2% (BldA) [Mass fraction] 96 % Daniel Adkins MD Work Phone: [employer] 10-11-2021 23:48-0400 Systolic blood pressure 134 mm[Hg] Daniel Adkins MD Work Phone: [employer] Encounters Encounter Date Encounter Type Care Provider Facility Start: 03-09-2024 End: 03-09-[address] [facility]- Work Phone: [facility] Work Phone: Start: 03-09-2024 End: 03-09-2024 Depart[address] Rory Driver [facility]- Work Phone: [facility] Start: 02-29-2024 End: 03-03-2024 Refill Luly English MD Work Phone: [facility] Comment on above: Chronic rhinitis Start: 02-16-2024 End: 02-17-2024 Telephone encounter Cleo Zambrano MD Work Phone: [facility] Comment on above: Medication Problem Start: 02-09-2024 End: 02-09-2024 Subsequent hospital visit by [facility] Start: 02-09-2024 ambulatory [facility] Start: 02-01-2024 End: 02-01-2024 ambulatory [facility]go [facility]geois MD [facility] Start: 01-26-2024 End: 01-26-2024 ambulatory [facility] Start: 01-26-2024 End: 01-26-2024 Subsequent hospital visit by physician [facility] Comment on above: Arrived Start: 01-21-2024 End: 01-21-2024 Patient encounter procedure Rory Driver [facility]- Work Phone: [facility] Work Phone: Start: 01-13-2024 End: 01-13-2024 Emergency department patient visit Lisette Junior DO Work Phone: [facility] Comment on above: Dizziness (Primary D x) Start: 01-11-2024 End: 01-11-2024 ambulatory Ugo Bourgeois MD [facility] Start: 12-29-2023 End: 12-29-2023 Subsequent hospital visit by physician Tamar [facility] Start: 12-21-2023 End: 12-21-2023 ambulatory CARMEN FISHER [facility] Start: 12-15-2023 End: 12-15-2023 ambulatory [facility] BOGDAN [facility] Start: 12-01-2023 End: 12-01-2023 ambulatory [facility] Start: 11-30-2023 End: 11-30-2023 Bamboo flowsheet Brittany eNville AUTOMATIC TYPEWRITER INSPECTOR Work Phone: [facility] Start: 11-30-2023 End: 11-30-2023 Bamboo flowsheet Brittany Neville AUTOMATIC TYPEWRITER INSPECTOR Work Phone: [facility] Start: 11-30-2023 End: 11-30-2023 Telephone encounter Brittany Neville AUTOMATIC TYPEWRITER INSPECTOR [facility] Start: 11-30-2023 End: 11-30-2023 ambulatory BRITTANY NEVILLE Not Available Start: 11-30-2023 End: 11-30-2023 Office outpatient visit 25 minutes Brittany Neville AUTOMATIC TYPEWRITER INSPECTOR [facility] Comment on above: JADON (obstructive sle ep apnea) (Primary Dx); Tension headache; Chronic bilateral low back pain, unspecified whether sciatica present; Paresthesias Start: 11-17-2023 End: 11-17-2023 ambulatory [facility] Start: 11-17-2023 End: 11-17-2023 Subsequent hospital visit by physician Tamar Silveira PT [facility] Physical Therapy Comment on above: Arrived Start: 11-16-2023 End: 11-16-2023 ambulatory Ugo Bourgeois MD Facility:[facility] Start: 10-20-2023 End: 10-20-2023 ambulatory [facility] Start: 10-20-2023 End: 10-20-2023 Subsequent hospital visit by physician Jan Olmstead PT [facility] Physical Therapy Comment on above: Arrived Start: 10-08-2023 End: 10-08-2023 Office outpatient new 30 minutes Dwayne Osito Sugg MD Work Phone: [facility] Comment on above: Macromastia (Primary Dx) Start: 10-08-2023 End: 10-08-2023 ambulatory DWAYNE KHOURY [facility] Start: 10-06-2023 End: 10-07-2023 Emergency department patient visit [facility] Start: 10-05-2023 End: 10-05-2023 Emergency department patient visit [facility] Start: 10-05-2023 End: 10-05-2023 Emergency department patient visit [facility] Start: 09-22-2023 End: 09-22-2023 Subsequent hospital visit by physician Jan Olmstead PT [facility] Physical Therapy Start: 09-15-2023 End: 09-15-2023 ambulatory [facility] RUMSCHLAG [facility] Start: 09-07-2023 End: 09-07-2023 ambulatory SHAWNA RUMSCHLAG [facility] Start: 09-01-2023 End: 09-01-2023 ambulatory SHAWNA RUMSCHLAG [facility] Start: 08-26-2023 End: 08-26-2023 ambulatory SHAWNA RUMSCHLAG [facility] Start: 08-26-2023 End: 08-26-2023 Subsequent hospital visit by physician Kofi Villegas PT [facility] Physical Therapy Comment on above: Arrived Start: 08-21-2023 End: 08-21-2023 ambulatory SHAWNA RUMSCHLAG [facility] Start: 08-21-2023 End: 08-21-2023 Subsequent hospital visit by physician Jan Olmstead PT [facility] Physical Therapy Comment on above: Arrived Start: 08-13-2023 End: 08-13-2023 ambulatory LAILA LIEBERMAN Not Available Start: 08-11-2023 End: 08-11-2023 ambulatory SHAWNA RUMSCHLAG [facility] Start: 08-11-2023 End: 08-11-2023 Subsequent hospital visit by physician Jan Olmstead PT [facility] Physical Therapy Comment on above: Arrived Start: 08-04-2023 End: 08-04-2023 ambulatory SHAWNA RUMSCHLAG [facility] Start: 07-29-2023 End: 07-29-2023 ambulatory SHAWNA RUMSCHLAG [facility] Start: 07-14-2023 End: 07-14-2023 Subsequent hospital visit by physician Rebecca Skinner PT [facility] Start: 07-07-2023 End: 07-07-2023 ambulatory SHAWNA RUMSCHLAG [facility] Start: 06-30-2023 End: 06-30-2023 ambulatory SHAWNA RUMSCHLAG [facility] Start: 06-17-2023 End: 06-17-2023 ambulatory SHAWNA RUMSCHLAG [facility] Start: 06-16-2023 End: 06-16-2023 ambulatory SHAWNA DARIOLAG [facility] Start: 06-04-2023 End: 06-04-2023 ambulatory SHAWNA RUMSCHLAG [facility] Start: 06-03-2023 End: 06-03-2023 ambulatory [facility] Start: 06-02-2023 End: 06-02-2023 Office outpatient new 30 minutes Deepika Robledo MD Work Phone: [facility] Comment on above: Mass of upper outer quadrant of right breast (Primary Dx); Abnormal mammogram; Symptomatic mammary hypertrophy Start: 06-02-2023 End: 06-02-2023 ambulatory DEEPIKA ROBLEDO [facility] Start: 06-02-2023 ambulatory SHAWNA [facility] Start: 05-25-2023 Patient encounter procedure Brittany Neville NP Work Phone: [facility] Start: 05-25-2023 End: 05-25-2023 ambulatory ROEL GARBER Not Available Start: 05-21-2023 End: 05-21-2023 Patient encounter procedure [facility] Gastroenterology Work Phone: Start: 05-21-2023 End: 05-21-2023 Patient encounter procedure [facility] Work Phone: Start: 05-20-2023 End: 05-20-2023 ambulatory SHAWNA RUMLINCOLNG [facility] Start: 05-19-2023 End: 05-19-2023 ambulatory SHAWNA EDWARG [facility] Start: 05-12-2023 Telephone encounter Deepika Robledo MD Work Phone: [facility] Surgical On[facility] Start: 05-06-2023 End: 05-06-2023 ambulatory SHAWNA RUMASHLEYMOG [facility] Start: 05-06-2023 End: 05-06-2023 Subsequent hospital visit by physician Rojas Altamirano PTA [facility] Physical Therapy Comment on above: Arrived Start: 05-05-2023 End: 05-05-2023 [facility] Start: 04-30-2023 Refill Maty Fulton RN [facility] Start: 04-28-2023 End: 04-28-2023 ambulatory GAURAV SELLERS [facility] Start: 04-28-2023 End: 04-28-2023 Office outpatient visit 25 minutes Gaurav CALVO Work Phone: [facility] Comment on above: 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 (Primary Dx) Start: 04-21-2023 End: 04-21-2023 ambulatory SH[facility] Start: 04-20-2023 End: 04-20-2023 Emergency department patient visit [facility] ED Comment on above: Closed head injury, initial encounter (Primary Dx); Fall due to slipping on ice or snow, initial encounter; Acute cervical myofascial strain, initial encounter Start: 04-16-2023 ambulatory Rory T Shammo Facility :[facility] Start: 04-07-2023 End: 04-07-2023 [facility] Start: 03-31-2023 Refill Patricia Clay RN [facility] Start: 03-27-2023 End: 03-27-2023 ambulatory PETE SILVER [facility] Start: 03-24-2023 End: 03-24-2023 ambulatory SHAWNA [facility] Start: 03-19-2023 End: 03-19-2023 ambulatory GABY JUNE Not Available Start: 03-18-2023 Telephone encounter Jan Peterson [facility] Start: 03-18-2023 End: 03-18-2023 ambulatory NON STAFF [facility] [employer] Other Start: 03-18-2023 Non-patient / Non-visit MD Yo Blank Work Phone: [facility] G[facility]ology Work Phone: Start: 03-17-2023 End: 03-17-2023 ambulatory Jan Garg Other [employer] Other Start: 03-17-2023 Telephone encounter Jan Peterson [facility] Start: 03-16-2023 Encounter for genera l adult medical examination without abnormal findings [facility] Start: 03-16-2023 End: 03-16-2023 ambulatory RORY DRIVER [facility] Start: 03-16-2023 End: 03-16-2023 ambulatory LULY ENGLISH Not Available Start: 03-10-2023 End: 03-10-2023 ambulatory SHAWNA [facility] Start: 03-10-2023 End: 03-10-2023 Subsequent hospital visit by physician Tamar Silveira PT [facility] Comment on above: Arrived Start: 03-05-2023 (FCCCWMNF/U) Weight Management f/u Gayathri Adams [facility] Start: 03-05-2023 End: 03-05-2023 ambulatory Gayathri Adams Other [employer] Other Start: 03-05-2023 Registered Recurring MD Monserrat Blank Work Phone: [facility] Work Phone: Start: 03-02-2023 End: 03-02-2023 Emergency department patient visit Sil Lázaro Sullivan DO Work Phone: [facility] ED Comment on above: Constipation, unspec ified constipation type (Primary Dx) Start: 02-26-2023 End: 02-26-2023 ambulatory Jan Garg Other [employer] Other Start: 02-26-2023 Telephone encounter Jan Peterson [facility] Start: 02-20-2023 Telephone encounter Argenis Storm RN [facility] Comment on above: Medication, DME Start: 02-18-2023 End: 02-18-2023 ambulatory Jan Garg Other [employer] Other Start: 02-18-2023 Telephone encounter Jan Peterson [facility] Start: 02-10-2023 Telephone encounter Margaux Olea [facility] Start: 02-05-2023 End: 02-05-2023 ambulatory Jan Garg Other [employer] Other Start: 02-05-2023 Office outpatient visit 15 minutes Jan Garg [facility] Start: 01-15-2023 (FCCCWMNF/U) Weight Management f/u Gayathri Adams [facility] Start: 01-15-2023 End: 01-15-2023 ambulatory Gayathri Adams Other [employer] Other Start: 01-07-2023 End: 01-07-2023 ambulatory Jan Garg Other [employer] Other Start: 01-07-2023 Office outpatient visit 15 minutes Jan Garg [facility] Start: 09-25-2022 End: 01-16-2023 ambulatory WALL TO WALL CARPET INSTALLER YUE GRANADO Facility:[facility] Start: 09-25-2022 End: 01-15-2023 Recurring YUE GRANADO [facility] Start: 09-17-2022 End: 09-17-2022 ambulatory Gayathri Adams Other [employer] Other Start: 09-17-2022 Telephone encounter Gayathri Peterson [facility] Start: 08-28-2022 ([facility] RD FU) [facility] F/ U Registerd Desk Top Publisher Tamar Sosa [facility] Start: 08-28-2022 End: 08-28-2022 ambulatory Tamar Sosa Other [employer] Other Start: 07-29-2022 ([facility]) Weight Management f/u Gayathri Angie [facility] Start: 07-29-2022 End: 07-29-2022 ambulatory Gayathri Angie Other [employer] Other Start: 05-20-2022 ([facility] Weight Management f/u Gayathrikasia Adams [facility] Start: 05-20-2022 End: 05-20-2022 ambulatory Gayathrimarino Adams Other [employer] Other Start: 05-19-2022 End: 05-19-[address] ROEL GARBER . Facility:[facility] Start: 05-07-2022 End: 05-08-[address] DOCTOR ARREOLA Facility:[facility] Start: 04-09-2022 End: 04-09-2022 ambulatory Gayathrimarino Adams Other [employer] Other Start: 04-09-2022 Telephone encounter Gayathri Angie [facility] Start: 04-08-2022 ([facility] WMNI) WMN Initial Provider Tamar Sosa [facility] Start: 04-08-2022 ([facility]) Weight Management f/u Gayathri Scally [facility] Start: 04-08-2022 End: 04-08-2022 ambulatory Tamar Fitt Other [employer] Other Start: 02-26-2022 End: 02-26-2022 ambulatory Tamar Fitt Other [employer] Other Start: 02-26-2022 IBT FOR OBESITY GROU P 2-10 30M Tamar Jackkhalif [facility] Start: 02-25-2022 ([facility]) Weight Management f/u Gayathri Brooklynly [facility] Start: 02-25-2022 End: 02-25-2022 ambulatory Gayathri Brooklynly Other [employer] Other Start: 02-17-2022 End: 02-18-2022 ambulatory RORY KOONH Facility:[facility] Start: 01-29-2022 End: 01-30-2022 ambulatory JOY Reis [facility] Facility:[facility] Start: 01-14-2022 ([facility]) Weight Management f/u Gayathri Brooklynly [facility] Start: 01-14-2022 End: 01-14-2022 ambulatory Gayathri Scally Other [employer] Other Start: 12-05-2021 End: 12-05-2021 ambulatory Gayathri Scally Other [employer] Other Start: 12-05-2021 Telephone encounter Gayathri [place] [facility] Start: 12-04-2021 End: 12-04-2021 ambulatory Gayathri Scally Other [employer] Other Start: 12-04-2021 Nutrition therapy Gayathri Harrington [facility] Start: 10-29-2021 End: 10-29-2021 ambulatory Yo Blank Other [facility] [employer] Other Start: 10-29-2021 Patient encounter procedure Yo Blank [facility] Gastroenterology Start: 10-22-2021 End: 10-22-2021 Emergency department patient visit Shawna Mcfadden DO Work Phone: [facility] ED Comment on above: Acute diffuse otitis externa of left ear (Primary Dx) Start: 10-11-2021 End: 10-12-2021 Emergency department patient visit Daniel Adkins MD Work Phone: [facility] ED Comment on above: Pilonidal cyst (Prim romero Dx) Start: 11-21-2016 End: 11-26-2016 Ambulatory Juan Ramon Maraúl Facility:[facility] Procedures Date Procedure Procedure Detail Performing Clinician [...] spine w/ o contrast material Precious Urbina WARD ATTENDANT - WALL TO WALL CARPET INSTALLER Work Phone: Start: 04-20-2023 Ct head/brain w/o co ntrast material Precious Urbina WARD ATTENDANT - WALL TO WALL CARPET INSTALLER Work Phone: Start: 03-16-2023 Mammography Brittany Jg yoo AUTOMATIC TYPEWRITER INSPECTOR Work Phone: Start: 05-02-2022 Microalbumin [Mass/v olume] in Urine by Test strip Patricia Clay RN Start: 05-02-2020 Adult depression scr eening assessment Argenis Storm RN Start: 08-30-2016 Cholecystectomy YUE PARISH Start: 01-03-2013 nasal surgery YUE ALVARENGA RS Tonsillectomy YUE GRANADO Plan of Treatment Date Care Activity Detail Author Start: 05-20-2027 Screening for malignant neoplasm of cervix [facility] Start: 05-24-2026 Screening for malignant neoplasm of cervix Pap Smear [facility] Start: 03-16-2025 Screening for malignant neoplasm of breast Breast cancer screen [facility] Start: 11-10-2024 End: 11-10-2024 Patient encounter procedure 11/10/2024 11:30 AM EDT Office Visit [facility] [place] [address] Karen Cotter, WARD ATTENDANT - WALL TO WALL CARPET INSTALLER [address] [place] [address] [address] [place] [address] 1 year [facility] Comment on above: 1 year [facility] Start: 10-07-2024 Adult BMI Screening Adult BMI Screen ing [facility] Start: 10-07-2024 Tobacco Screening Tobacco Screening [facility] Start: 06-01-2024 Adult BMI Screening Adult BMI Screen ing [facility] Start: 05-26-2024 End: 05-26-2024 Patient encounter procedure 05/26/2024 11:00 AM EDT Office Visit [facility] [address] [place] [phone] Roel Garber DO [address] [place] [address] [facility] Start: 04-28-2024 Adult BMI Screening Adult BMI Screen ing [facility] Start: 04-28-2024 Tobacco Screening Tobacco Screening [facility] Start: 03-24-2024 End: 03-24-2024 Patient encounter procedure 03/24/2024 3:00 PM EST Office Visit [facility] [address] [place] [address] Brittany Neville NP [address] [place] [place] [facility] Start: 03-17-2024 End: 03-17-2024 Patient encounter procedure 03/17/2024 9:20 AM EST [facility] [address] [place] [phone] Cleo Zambrano MD [address] [place] [address] [facility] Start: 03-16-2024 Adult BMI Screening Adult BMI Screen ing [facility] Start: 03-16-2024 Screening for malignant neoplasm of breast Mammogram [facility] Start: 03-11-2024 End: 03-11-2024 Patient encounter procedure 03/11/2024 10:00 AM EST Office Visit [facility]ASMUSS[facility] [address] [place] [phone] Mendez Ortiz, DO [address] [place] [address] [facility] Start: 03-09-2024 Group A Streptococcu s Culture Group A Streptococcus Culture [facility] Start: 02-19-2024 End: 02-19-2024 Patient encounter procedure 02/19/2024 2:00 PM EST Office Visit [facility] [address] [place] [phone] Mendez Ortiz, DO [address] [place] [address] [facility] Start: 02-16-2024 End: 02-16-2024 Patient encounter procedure 02/16/2024 3:40 PM EST Office Visit NATALIIA [facility] [address] [place] [phone] Brittany Neville, AUTOMATIC TYPEWRITER INSPECTOR [address] [place], [place] [facility] [address] Start: 02-09-2024 End: 02-09-2024 Patient encounter procedure 02/09/2024 11:15 AM EST Appointment [facility] Physical Therapy [address] [place], [place] [phone] Tamar Silveira, [place] dry needling [facility] Physical Therapy Comment on above: dry needling Start: 02-08-2024 End: 02-08-2024 Patient encounter procedure 02/08/2024 1:45 PM EST Appointment [facility] [address] [place] [phone] Chepe Ingram MD [address] [place], [place] [phone] [facility] Start: 01-30-2024 Adult BMI Screening Adult BMI Screen ing [facility] Start: 01-30-2024 Tobacco Screening Tobacco Screening [facility] Start: 01-26-2024 End: 01-26-2024 Patient encounter procedure 01/26/2024 8:00 AM EST Appointment [facility] Physical Therapy [address] [place] [phone] Tamar Silveira, [place] dry needling [facility] Physical Therapy Comment on above: dry needling Start: 01-13-2024 End: 01-13-2024 Patient encounter procedure 01/13/2024 8:15 AM EST Office Visit [facility] Part of [address] [place] [phone] Georges [place], PA-C [address] [facility] [address] [place] [phone] incontinence [facility] Part [facility] Comment on above: incontinence Start: 12-29-2023 End: 12-29-2023 Patient encounter procedure 12/29/2023 9:00 AM EDT Appointment [facility] Physical Therapy [address] [place], [place] [phone] Tamar Silveira, PT NEEDLING [facility] Physical Therapy Comment on above: NEEDLING Start: 12-15-2023 End: 12-15-2023 Patient encounter procedure 12/15/2023 9:00 AM EDT Appointment [facility] Physical Therapy [address] [place], [place] [phone] Tamar Silveira, PT NEEDLING [facility] Physical Therapy Comment on above: NEEDLING Start: 12-01-2023 End: 12-01-2023 Patient encounter procedure 12/01/2023 9:45 AM EDT Appointment [facility] Physical Therapy [address] [place], [place] [phone] Tamar Silveira, PT NEEDLING [facility] Physical Therapy Comment on above: NEEDLING Start: 11-01-2023 Influenza vaccination [facility] Start: 10-08-2023 End: 10-08-2023 Patient encounter procedure 10/08/2023 9:00 AM EDT Office Visit [facility] [address] [facility] [address] [place] [address] Dwayne Khoury MD [address], [facility] [address] [place] [address] [facility] Start: 10-01-2023 Influenza vaccination Flu vaccine (# 1) [facility] Start: 09-01-2023 End: 09-01-2023 Patient encounter procedure 09/01/2023 10:30 AM EDT Appointment [facility] Physical Therapy [address] [place], [place] [phone] Osito Rowan [facility] Physical Therapy Start: 08-26-2023 End: 08-26-2023 Patient encounter procedure 08/26/2023 2:30 PM EDT Appointment [facility] Physical Therapy [address] [place] [phone] Kofi Villegas, PT [facility] Physical Therapy Start: 08-18-2023 End: 08-18-2023 Patient encounter procedure 08/18/2023 9:45 AM EDT Appointment [facility] Physical Therapy [address] [place], [place] [phone] Osito Rowan [facility] Physical Therapy Start: 08-11-2023 End: 08-11-2023 Patient encounter procedure 08/11/2023 1:15 PM EDT Appointment [facility] Physical Therapy [address] [place], [place] [phone] Jan Olmstead, PT DRY NEEDLING [facility] Physical Therapy Comment on above: DRY NEEDLING Start: 08-04-2023 End: 08-04-2023 Patient encounter procedure 08/04/2023 4:15 PM EDT Appointment [facility] Physical Therapy [address] [place] [phone] Osito Rowan [facility] Physical Therapy Start: 06-03-2023 End: 06-03-2023 Patient encounter procedure 06/03/2023 3:30 PM EDT Appointment [facility] Physical Therapy [address] [place] [phone] Osito Rowan [facility] Physical Therapy Start: 06-02-2023 End: 06-02-2023 Patient encounter procedure [facility] Physical Therapy Comment on above: DRY NEEDLING- jd gibson coordinates with son's appt Start: 05-23-2023 Hepatitis B vaccine (3 of 3 - Hep B Twinrix 3-dose series) Hepatitis B vaccine (3 of 3 - Hep B Twinrix 3-dose series) [facility] Start: 05-20-2023 End: 05-20-2023 Patient encounter procedure 05/20/2023 3:15 PM EDT Appointment [facility] Physical Therapy [address] [place] [phone] Rojas Altamirano PTA [facility] Physical Therapy Start: 05-19-2023 End: 05-19-2023 Patient encounter procedure 05/19/2023 12:45 PM EDT Appointment [facility] Physical Therapy [address] [place] [phone] Rebecca Skinner, PT DRY NEEDLING- dont move coordinates with son's apptDRY NEEDLING [facility] Physical Therapy Comment on above: DRY NEEDLING- dont m ove coordinates with son's apptDRY NEEDLING Start: 05-05-2023 End: 05-05-2023 Patient encounter procedure [facility] Physical Therapy Comment on above: DRY NEEDLING DRY NEEDLING- dont m ove coordinates with son's appt Start: 05-03-2023 Urine screening for protein Urine Microalbumin [facility] Start: 04-28-2023 End: 04-28-2023 Patient encounter procedure 04/28/2023 10:45 AM EST Office Visit [facility] [address] [place] [phone] Gaurav Sellers PA [address] [place] [address] [facility] Start: 04-21-2023 End: 04-21-2023 Patient encounter procedure [facility] Physical Therapy Comment on above: DRY NEEDLING DRY NEEDLING- dont m ove coordinates with son's appt Start: 04-07-2023 End: 04-07-2023 Patient encounter procedure 04/07/2023 2:15 PM EST Appointment [facility] Physical Therapy [address] [place] [phone] Rebecca Skinner, [place] DRY NEEDLING [facility] Physical Therapy Comment on above: DRY NEEDLING Start: 03-27-2023 End: 03-27-2023 Admission to same day surgery center 03/27/2023 1:27 PM EST - 03/27/2023 1:33 PM EST Surgery [facility] [address] [place] [phone] Pete Silver MD [address] [place], [place] [phone] INJECTION BLOCK SACROILIAC JOINT [56941 (CPT )] [facility] Comment on above: INJECTION BLOCK SACR OILIAC JOINT [94134 (CPT )] Start: 03-27-2023 End: 03-27-2023 Inject si joint arthrgrphy&/anes/stero id w/monika INJECTION BLOCK SACROILIAC JOINT Disorder of sacrum 03/27/2023 1:27 PM EST [facility] Start: 03-27-2023 Subsequent hospital visit by physician 03/27/2023 1:27 PM EST Hospital Encounter [facility] [address] [facility] [place] [phone] Pete Silver MD [address] [facility] [place] [address] [facility] Start: 03-24-2023 End: 03-24-2023 Patient encounter procedure 03/24/2023 2:15 PM EST Appointment [facility] Physical Therapy [address] [place], [place] [phone] Rebecca Skinner, PT DRY NEEDLING [facility] Physical Therapy Comment on above: DRY NEEDLING Start: 03-19-2023 [facility] Start: 03-16-2023 End: 03-16-2023 Patient encounter procedure 03/16/2023 11:45 AM EST Appointment [facility] [address] [place] [address] [facility] Start: 03-10-2023 End: 03-10-2023 Patient encounter procedure 03/10/2023 2:30 PM EST Appointment [facility] Physical Therapy [address] [place] [address] [phone] Rebecca Skinner, PT [facility] Physical Therapy Start: 09-30-2022 Influenza vaccination Flu vaccine (# 1) [facility] Start: 10-31-2021 Influenza vaccination Flu vaccine (# 1) [facility] Start: 09-03-2021 DTaP,Tdap and Td Vaccines (1 - Tdap) DTaP,Tdap and Td Vaccines (1 - Tdap) [facility] Start: 09-03-2021 DTaP/Tdap/Td vaccine (1 - Tdap) DTaP/Tdap/Td vaccine (1 - Tdap) [facility] Start: 05-02-2021 Depression Screening Depression Scre [facility] Start: 2020 Lipid panel Lipids [facility] Start: 01-04-2020 Diabetic foot examination Diabetic Foot Exam [facility] Start: 09-25-2015 Diabetes screen Diabetes screen [facility] Start: 2010 Screening for malignant neoplasm of cervix [facility] Start: 2001 Screening for malignant neoplasm of cervix Pap smear [facility] Start: 09-25-1999 DTaP/Tdap/Td vaccine (1 - Tdap) DTaP/Tdap/Td vaccine (1 - Tdap) [facility] Start: 1998 Adult BMI Follow Up Plan Adult BMI Follow Up Plan [facility] Start: 1998 Hepatitis C screening Hepatitis C sc reen [facility] Start: 09-25-1995 HIV screening HIV screen [facility] Start: 1993 Varicella vaccine (1 of 2 - 13+ 2-dose series) Varicella vaccine (1 of 2 - 13+ 2-dose series) [facility] Start: 1992 Depression Screen Depression Screen [facility] Start: 1992 Depression Screening Depression Scre [facility] Start: 1990 Lipid panel Lipids [facility] Start: 1981 Varicella vaccine (1 of 2 - 2-dose childhood series) Varicella vaccine (1 of 2 - 2-dose childhood series) [facility] Start: 03-27-1981 COVID-19 Vaccine (#1) COVID-19 Vacci ne (#1) [facility] Start: 1980 Glaucoma screening Diabetic Op hthalmology Exam [facility] Start: 1980 Hepatitis B vaccine (1 of 3 - 3-dose series) Hepatitis B vaccine (1 of 3 - 3-dose series) [facility] EKG 12 Lead EKG 12 Lead ECG Routine 01/13/2024 2:59 PM EST [facility] Inject si joint arthrgrphy&/anes/stero id w/monika INJECTION BLOCK SACROILIAC JOINT Disorder of sacrum [facility] Njx dx/ther agt pvrt facet jt lmbr/sac 1 level INJECTION BLOCK NERVE MEDIAL BRANCH Lumbosacral spondylosis without myelopathy [facility] Streptococcus pyogen es [Presence] in Unspecified specimen by Organism specific culture [facility] Immunizations Immunization Date Immunization Notes Care Provider Fa cili 12-07-2023 influenza, seasonal, injectable, preservative free Luly English MD Work Phone: [facility] 05-25-2023 hepatitis A and hepatitis B vaccine Luly English MD Work Phone: [facility] 12-22-2022 hepatitis A and hepatitis B vaccine Luly English MD Work Phone: [facility] 12-22-2022 Seasonal, quadrivale nt, recombinant, injectable influenza vaccine, preservative free Luly English MD Work Phone: [facility] 12-22-2022 influenza virus vaccine, unspecified formulation Deepika Robledo MD Work Phone: [facility] 06-23-2022 hepatitis A and hepatitis B vaccine Luly English MD Work Phone: [facility] 02-07-2022 Pneumococcal Conjuga te PCV 20 Luly English MD Work Phone: [facility] 12-23-2021 influenza, injectabl e, quadrivalent, preservative free Luly English MD Work Phone: [facility] 09-02-2021 TD(adult) unspecifie d formulation Luly English MD Work Phone: [facility] 12-24-2020 influenza, injectabl e, quadrivalent, preservative free Luly English MD Work Phone: [facility] 12-19-2019 influenza, injectabl e, quadrivalent, preservative free Luly English MD Work Phone: [facility] 12-19-2018 influenza, injectabl e, quadrivalent, preservative free Argenis Storm RN [facility] 12-02-2017 influenza, injectabl e, quadrivalent, preservative free Argenis Storm RN [facility] 12-02-2017 pneumococcal conjuga te vaccine, 13 valent Argenis Storm RN [facility] 10-10-2016 influenza virus vaccine, unspecified formulation Argenis Storm RN [facility] 10-10-2016 influenza, seasonal, injectable, preservative free Luly English MD Work Phone: [facility] 12-19-2013 influenza virus vaccine, live, attenuated, for intranasal use Argenis Storm RN [facility] 12-03-2012 influenza virus vaccine, whole virus Argenis Storm RN [facility] 12-29-2011 influenza virus vaccine, whole virus Argenis Storm RN [facility] 12-23-2010 influenza virus vaccine, whole virus Argenis Storm RN [facility] 12-18-2008 influenza virus vaccine, whole virus Argenis Storm [facility] Payers Date Payer Category Payer Self-pay [id number] 2022 Unknown 2013 Medicaid (Managed Care) [facility] MEDICAID [id number] 2002 Medicaid [id number] 2002 Medicaid [facility] [id number] 1980 Unknown [id number] 2.16.840.1.613146.3.579.2. 593 1980 Unknown [id number] 2.16.840.1.924656.3.579.2. 593 1980 Unknown [id number] 2.16.840.1.029692.3.579.2. 593 1980 Unknown [id number] 2.16.840.1.736081.3.579.2. 593 1980 Unknown [id number] 2.16.840.1.340913.3.579.2. 727 1980 Unknown [id number] 2.16.840.1.545680.3.579.2. 1286 1980 Unknown [id number] 2.16.840.1.079785.3.579.2. 128 1980 Unknown [id number] 2.16.840.1.625805.3.579.2. 1286 1980 Unknown [id number] 2.16.840.1.593336.3.579.2. 1285 1980 Unknown [id number] 2.16.840.1.375854.3.579.2. 1259 1980 Unknown [id number] 2.16.840.1.942998.3.579.2. 1258 1980 Unknown [id number] 2.16840.1.549228.3.579.2. 1258 1980 Unknown [id number] 2.840.1.752587.3.579.2. 1258 1980 Unknown [id number] 2.16840.1.690920.3.579.2. 1258 1980 Unknown [id number] 2.840.1.059204.3.579.2. 1285 1980 Unknown [id number] 2.840.1.101832.3.579.2. 1285 1980 Unknown [id number] 2.840.1.382761.3.579.2. 1285 1980 Unknown [id number] 2.0.1.649866.3.579.2. 1285 1980 Unknown [id number] 2.0.1.006710.3.579.2. 1285 1980 Unknown [id number] 2.840.1.143511.3.579.2. 1285 1980 Unknown [id number] 2.0.1.992049.3.579.2. 1285 1980 Unknown [id number] 20.1.472768.3.579.2. 1980 Unknown [id number] 840.1.570167.3.579.2. 1980 Unknown [id number] 840.1.453347.3.579.2. 1980 Unknown [id number] 2.840.1.750264.3.579.2. 1980 Unknown [id number] 2.840.1.552982.3.579.2. 1980 Unknown [id number] 2840.1.680213.3.579.2. 1980 Unknown [id number] 2.840.1.129388.3.579.2. 1980 Unknown [id number] 2.840.1.692170.3.579.2. 1980 Unknown [id number] 2.840.1.593161.3.579.2. 1980 Unknown [id number] 2.840.1.347284.3.579.2. 1980 Unknown [id number] 2.840.1.611103.3.579.2. 1980 Unknown [id number] 2.840.1.004746.3.579.2. 1980 Unknown [id number] 2.840.1.271470.3.579.2. 1980 Unknown [id number] 20.1.011132.3.579.2. 1980 Unknown [id number] 2.840.1.027533.3.579.2. 1980 Unknown [id number] 20.1.798593.3.579.2. 1980 Unknown [id number] 2.0.1.188045.3.579.2. 1980 Unknown [id number] 840.1.989478.3.579.2. 1980 Unknown [id number] .840.1.697176.3.579.2. 1980 Unknown [id number] 2.840.1.533318.3.579.2. 1980 Unknown [id number] 2.840.1.815110.3.579.2. 1980 Unknown [id number] 2.840.1.180033.3.579.2. 1980 Unknown [id number] 2.16.840.1.750424.3.579.2. 173 1980 Unknown [id number] 2.16.840.1.890810.3.579.2. 1980 Unknown [id number] 2.16.840.1.521536.3.579.2. 1980 Unknown [id number] 2.16.840.1.276908.3.579.2. 1980 Unknown [id number] 2.16.840.1.375341.3.579.2. 1980 Unknown [id number] 2.16.840.1.800304.3.579.2. 1980 Unknown [id number] 2.16.840.1.871435.3.579.2. 1980 Unknown [id number] 2.16840.1.234661.3.579.2. 1980 Unknown [id number] 2.16.840.1.576373.3.579.2. 1980 Unknown [id number] 2.16840.1.354894.3.579.2. 1980 Unknown [id number] 2.16.840.1.688885.3.579.2. 1980 Unknown [id number] 2.16840.1.215011.3.579.2. 1980 Unknown [id number] 2.16.840.1.882114.3.579.2. 1980 Unknown [id number] 2.16.840.1.334071.3.579.2. 1980 Unknown [id number] 2.16.840.1.911328.3.579.2. 1980 Unknown [id number] 2.16.840.1.495356.3.579.2. 173 1959 Medicaid [id number] Unknown [id number] 2.16.840.1.109465.3.579.2. 531 Unknown [id number] 2.16.840.1.849342.3.579.2. 531 Unknown [id number] 2.16.840.1.646386.3.579.2. 531 Social History Date Type Detail Facility Start: 09-02-2017 End: 05-21-2023 Tobacco smoking status NHIS Never smoked tobacco [employer] Start: 09-02-2017 End: 03-10-2023 Tobacco use and exposure Smokeless tobacco non-user [employer] Phone: Start: 10-11-2021 End: 01-13-2024 Alcohol intake Current non-drinker of alcohol (finding) [employer] Phone: Start: 1980 Sex Assigned At Not on file B ON [employer] Phone: Start: 10-01-2021 End: 10-22-2021 Exposure to SARS-CoV-2 (event) Not sure [employer] Phone: Start: 10-11-2021 End: 11-30-2023 Sex Assigned At [facility] Tobacco smoking status Never [facility] Start: 10-11-2021 End: 11-30-2023 History of Social function [facility] Start: 1980 Sex Assigned At Female F [facility] How often to you hav e a drink containing alcohol? Never [employer] Start: 10-05-2014 Sex Female (finding) [facility] Start: 02-11-2024 End: 02-18-2024 Alcoholic beverage intake Lifetime non-drinker (finding) [facility] Start: 03-11-2024 Sex Patient sex un known (finding) [facility] Medical Equipment Procedure Code Equipment Code Equipment Origin al Text Equipment Identifier Dates [place] Sut 5.5mm 2 Ft Crkscr Fbrwr Shldr 3 Pk 14.7mm Strl Ea=Bill-Only Rpl [id number] - [id number] Start: 05-15-2022 Use to test BLOO D SUGAR TWICE DAILY [id number] Start: 05-28-2020 Use to test BLOO D SUGAR TWICE DAILY, Diagnosis: E11.9 [id number] Start: 03-08-2020 Clinical Notes 10-22-2021 to 02-16-2024 [...] approved again. She's gained 20lbs on trulicity. [facility] 02-16-2024 Miscellaneous Notes Pt would like ot know if you can try to get the ozempic approved again. She's gained 20lbs on trulicity. documented in this encounter [facility] 02-09-2024 History of Presen t illness Narrative [facility] Inpatient/Observation/Outpatien t Rehabilitation Date: 02/09/2024 Patient [...] DN Date: 02/09/2024 documented in this encounter [facility] 01-13-2024 Hospital Discharg e instructions Lisette Junior DO - 01/13/2024 5:40 PM EST Increase your fluid intake. Follow-up with your doctor to discuss your medications especially the gabapentin and cyclobenzaprine which can certainly make you feel tired and groggy all the time. The following attachments cannot be sent through Care Everywhere.Dizziness (Emirati)documented in this encounter [facility] 11-30-2023 Telephone encounter Note I called [...] believes that the device is MRI compatible. [facility] 11-30-2023 Miscellaneous Notes I called Dr Brito's [...] Inspire device. Her BMI is 35.96, will [place] allow this BMI Her HST is from 04/2022, does need this updated Will she be able to have MRIs If all of this is ok we will send for Inspire consult We will need to call her with an update documented in this encounter [facility] 11-30-2023 Telephone encounter Note Please call Dr. Brito office and ask the following questions in regards to Inspire device. Her BMI is 35.96, will [place] allow this BMI Her HST is from 04/2022, does need this updated Will she be able to have MRIs If all of this is ok we will send for Inspire consult We will need to call her with an update [facility] 11-30-2023 History of Presen t illness Narrative [...] Medical History: Diagnosis Date Anemia Bipolar disorder ([facility]) Body mass index (BMI) of 36.0 to 36.9 Cholecystitis 2017 Acute/chronic Chronic rhinitis Controlled type 2 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, without long-term current use of insulin ([facility]) Gastritis 2017 GERD (gastroesophageal reflux disease) Hyperlipemia ([facility]) Insertion of Nexplanon Iron deficiency anemia Kidney stones OCD (obsessive compulsive disorder) ([facility]) Open wound of toe without complication 03/10/2023 PTSD (post-traumatic stress disorder) ([facility]) Recurrent epistaxis Seasonal allergies Umbilical hernia 2017 [...] She did switch to a provider in [place]. They did change her zanaflex and mobic [...] and see if BMI of 36 with [place] is feasible for Inspire device, if it [...] clinic: 3 months documented in this encounter [facility] 10-20-2023 History of Presen t illness Narrative [facility] Outpatient Physical Therapy Daily Note Patient: Karma Candelaria : 1980 CSN #: [id number] Referring Physician: Shawna Mcfadden DO Date: 10/20/2023 Treatment Diagnosis: LBP, cervical spine pain Onset Date: 02/18/23 PT Insurance Information: [facility] Total # of Visits Approved: 32 Per [...] LB area.-met Alf Goals Time Frame for Desktop Administrator Goals : 6 visits Alf Goal 1: [...] to her job tasks - 40% improved. Alf Goal 4: Pt kvng UE strength will be 5/5 without increasing pain complaints to assist in tolerance of lifting and carrying -PARTIALLY MET 4+/5 grossly. Minutes Tracking: Time In: 944 Time Out: 0 Minutes: 45 Timed Code Treatment Minutes: 43 Minutes Jan Olmstead PT, DPT, OCS, Cert. DN Date: 10/20/2023 documented in this encounter [facility] 10-08-2023 History of Presen t illness Narrative [facility] [address] Office Dwayne Khoury MD, PhD Caryl Mao, WARD ATTENDANT-WALL TO WALL CARPET INSTALLER Dayan Harmon PA-C Plastic Surgery New Patient [...] mass follow up Ultrasound was done in [place] the nodule was noted but seemed consistent with a lymph node. Breast size has remained the same with weight loss Family history is positive for breast disease and breast cancer in her maternal grandmother Did she have children did breast feed Past Medical History: Past Medical History: Diagnosis Date Anxiety Asthma Back pain Bipolar 1 disorder ([facility]) Breast disorder enlarged lymph nodes in both breast Carpal tunnel syndrome Chronic pain disorder Deep vein thrombosis ([facility]) blood clot in left arm Dental disease [...] night 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 ([facility]) 11/10/2017 Visual impairment Past Surgical History: Past Surgical History: Procedure Laterality Date ANKLE SURGERY Left x2 ARTHROSCOPY SHOULDER WITH ROTATOR CUFF REPAIR Right 05/15/2022 Performed by Chepe Ingram MD at [facility] DEBRIDEMENT Right 05/15/2022 Performed by Chepe Ingram MD at [facility] DECOMPRESSION OF SUBACROMIAL SPACE WITH PARTIAL ACROMIOPLASTY Right 05/15/2022 Performed by Chepe Ingram MD at [facility] INJECTION BLOCK EPIDURAL STEROID LUMBAR/SACRAL: L 4/5 WU N/A 04/22/2021 Performed by Pete Silver MD at [facility] INJECTION BLOCK SACROILIAC JOINT Left 03/27/2023 Performed by Pete Silver MD at [facility] CERVICAL OR THORACIC EPIDURAL BLOCK WITH STEROIDS: C67 WU N/A 01/29/2018 Performed by Pete Silver MD at [facility] INJECTION LUMBAR OR SACRAL EPIDURAL BLOCK WITH STEROIDS: L45 UW N/A 10/15/2018 Performed by Pete Silver MD at [facility] MEDIAL BRANCH NERVE BLOCK: bilat L45 51 Bilateral 07/30/2018 Performed by Pete Silver MD at [facility] SPINE TRANSFORAMINAL: left C 5,6 Nroot Left 01/09/2023 Performed by Pete Silver MD at [facility] LAPAROSCOPIC CHOLECYSTECTOMY N/A 09/16/2016 Performed by Juan Ramon Jean MD at [facility] LIVER BIOPSY EMA PROCEDURE Right 05/15/2022 Performed by Chepe Ingram MD at [facility] NASAL SURGERY REPAIR HERNIA UMBILICAL 09/16/2016 Performed by Juan Ramon Jean MD at [facility] TONSILLECTOMY Allergies: Allergies Allergen Reactions Metformin Severe [...] , Rfl: lancets (UNILET LANCET) 28 gauge [facility] Use to test BLOOD SUGAR TWICE DAILY, [...] on 04/28/2023), Disp: 30 tablet, Rfl: 0 ueijhlzm-lrfq-RE-calcium &mins (THERAGRAN-M) 9 mg iron-400 mcg tablet, [...] nipple: 25 Areolar Diameter: 4.5 6 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 Impression : No diagnosis found. [...] also discussed that breast size can change manager the years with weight loss and weight [...] with the patient. Dwayne Khoury MD, PhD [facility] Total time spent was 30 minutes: Preparing to see the patient (e.g., review of tests) Obtaining and/or reviewing separately obtained history Performing a medically appropriate examination and/or evaluation Counseling and educating the patient/family/caregiver Ordering medications, tests, or procedures Referring and communicating with other health coronary care unit nurse (not separately reported) Documenting clinical information in the electronic or other health record Independently interpreting results (not separately reported) and communicating results to the patient/family/caregiver Care coordination (not separately reported) Please note that portions of this note were generated using voice recognition Pixia dictation software. Although every effort was made to ensure the accuracy of this automated butcherette, some errors in butcherette may have occurred. documented in this encounter [facility] 09-22-2023 History of Presen t illness Narrative [...] her next appt. documented in this encounter [facility] 08-26-2023 History of Presen t illness Narrative [facility] Outpatient Physical Therapy Daily Note Patient: Karma Candelaria : 1980 CSN #: [id number] Referring Physician: Shawna Mcfadden DO Date: 08/26/2023 Diagnosis: Z76.89 - Persons encountering health services in other specified circumstances Treatment Diagnosis: pain in cervical and LB Onset Date: 02/18/23 PT Insurance Information: [place] [employer] [facility] Total # of Visits Approved: [...] Frame for Alf Goals : 6 visits Desktop Administrator Goal 1: Pt will be independent and compliant with exercise while maintaining improved posture 50% of the time. Desktop Administrator Goal 2: Pt will be able to [...] Date: 08/26/2023 documented in this encounter [facility] 08-21-2023 History of Presen t illness Narrative Physical Therapy Disregard the no show note on 08/17. This was added in error. [facility] Outpatient Physical Therapy Daily Note Patient: Karma Candelaria : 1980 CSN #: [id number] Referring Physician: Shawna Mcfadden DO Date: 08/21/2023 Treatment Diagnosis: pain in cervical and LB Onset Date: 02/18/23 PT Insurance Information: [employer] Total # of Visits Approved: 24 Per [...] the cervical area and her LB area. Desktop Administrator Goals Time Frame for Desktop Administrator Goals : 6 visits Alf Goal 1: [...] and improved tolerance to her job tasks. Desktop Administrator Goal 4: Pt kvng UE strength will be 5/5 without increasing pain complaints to assist in tolerance of lifting and carrying. Minutes Tracking: Time In: 1045 Time Out: 1116 Minutes: 31 Timed Code Treatment Minutes: 29 Minutes Jan Olmstead PT, DPT Date: 08/21/2023 documented in this encounter [facility] 08-11-2023 History of Presen t illness Narrative [facility] Outpatient Physical Therapy Daily Note Patient: Karma Candelaria : 1980 CSN #: [id number] Referring Physician: Shawna Mcfadden DO Date: 08/11/2023 Diagnosis: Z76.89 - Persons encountering health services in other specified circumstances Treatment Diagnosis: pain in cervical and LB Onset Date: 02/18/23 PT Insurance Information: [employer] Plan Total # of Visits Approved: 24 [...] the cervical area and her LB area. Desktop Administrator Goals Time Frame for Desktop Administrator Goals : 6 visits Alf Goal 1: [...] of Presen t illness Narrative Physical Therapy [facility] Inpatient/Observation/Outpatien t Rehabilitation Date: 07/14/2023 Patient [...] does not require skilled services due to: Therapist/Chemical Manager will attempt to see this patient, [...] Year discontinued? N/a Are you of Ashkenazi Scientology decent? no Family history of cancer: relation [...] or lymphadenopathy. I reviewed notes from her florist helper dated 05/05/2023, imaging including mammogram and ultrasound dated 03/16/2023 and 03/25/2023, history form dated 06/02/2023. Past Medical History Past Medical History: Diagnosis Date Anxiety Asthma Back pain Bipolar 1 disorder ([facility]) Breast disorder enlarged lymph nodes in both breast Carpal tunnel syndrome Chronic pain disorder Deep vein thrombosis ([facility]) blood clot in left arm Dental disease [...] night 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 ([facility]) 11/10/2017 Visual impairment Past Surgical History Past Surgical History: Procedure Laterality Date ANKLE SURGERY Left x2 ARTHROSCOPY SHOULDER WITH ROTATOR CUFF REPAIR Right 05/15/2022 Performed by Chepe Ingram MD at [facility] DEBRIDEMENT Right 05/15/2022 Performed by Chepe Ingram MD at [facility] DECOMPRESSION OF SUBACROMIAL SPACE WITH PARTIAL ACROMIOPLASTY Right 05/15/2022 Performed by Chepe Ingram MD at [facility] INJECTION BLOCK EPIDURAL STEROID LUMBAR/SACRAL: L 4/5 WU N/A 04/22/2021 Performed by Peet Silver MD at [facility] IN[facility]CTION BLOCK SACROILIAC JOINT Left 03/27/2023 Performed by Pete Silver MD at [facility] CERVICAL OR THORACIC EPIDURAL BLOCK WITH STEROIDS: C67 WU N/A 01/29/2018 Performed by Pete Silver MD at [facility] LUMBAR OR SACRAL EPIDURAL BLOCK WITH STEROIDS: L45 WU N/A 10/15/2018 Performed by Pete Silver MD at [facility] INJECTION MEDIAL BRANCH NERVE BLOCK: bilat L45 51 Bilateral 07/30/2018 Performed by Pete Silver MD at [facility] INJECTION SPINE TRANSFORAMINAL: left C 5,6 Nroot Left 01/09/2023 Performed by Pete Silver MD at [facility] LAPAROSCOPIC CHOLECYSTECTOMY N/A 09/16/2016 Performed by Juan Ramon Jean MD at [facility] LIVER BIOPSY EMA PROCEDURE Right 05/15/2022 Performed by Chepe Ingram MD at [facility] NASAL SURGERY REPAIR HERNIA UMBILICAL 09/16/2016 Performed by Juan Ramon Jean MD at [facility] TONSILLECTOMY Family History Family History Problem Relation [...] 5 blood-glucose meter (TRUE METRIX GLUCOSE METER) [facility] use to test BLOOD SUGAR TWICE DAILY, [...] , Rfl: lancets (UNILET LANCET) 28 gauge [facility] Use to test BLOOD SUGAR TWICE DAILY, [...] on 04/28/2023), Disp: 30 tablet, Rfl: 0 jlgmprxy-tpkz-VO-calcium &mins (THERAGRAN-M) 9 mg iron-400 mcg tablet, [...] a bilateral screening mammogram on [facility]16[facility]. Her breast tissue is almost entirely fatty. There was a 1 cm mass in the posterior upper-outer right breast 17 cm from the nipple. They thought this was likely a lymph node but recommended that she return for additional imaging. She had the imaging done in [place]. They did a right diagnostic mammogram and [...] with any concerns. documented in this encounter [facility] 05-12-2023 Miscellaneous Notes Spoke with patient and scheduled with Dr. Robledo 4/2. Patient voiced understanding of appointment details. Patient was offered sooner dates but declined per her availability. documented in this encounter [facility] 05-12-2023 Telephone encounter Note Spoke with patient and scheduled with Dr. Robledo 4/2. Patient voiced understanding of appointment details. Patient was offered sooner dates but declined per her availability. [facility] 04-30-2023 Miscellaneous Notes Last Office Visit: 04/28/2023 Next Office Visit: Visit date not found Last Urine Drug Screen: No results found for: BENZOSCRN OARRS appropriate documented in this encounter [facility] 04-30-2023 Telephone encounter Note Last Office Visit: 04/28/2023 Next Office Visit: Visit date not found Last Urine Drug Screen: No results found for: BENZOSCRN OARRS appropriate [facility] 04-28-2023 History of Presen t illness Narrative [facility] [address] [place] [address] Patient: Karma Banegas Sex: female : 1980 [...] spine (09/2022 last visit for 11/05/22) at [facility] with no relief Back: 10/15/18 [...] Anxiety Asthma Back pain Bipolar 1 disorder ([facility]) Breast disorder enlarged lymph nodes in both breast Carpal tunnel syndrome Chronic pain disorder Deep vein thrombosis ([facility]) blood clot in left arm Dental disease [...] night 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 ([facility]) 11/10/2017 Visual impairment Past Surgical History: Procedure Laterality Date ANKLE SURGERY Left x2 ARTHROSCOPY SHOULDER WITH ROTATOR CUFF REPAIR Right 05/15/2022 Performed by Chepe Ingram MD at [facility] DEBRIDEMENT Right 05/15/2022 Performed by Chepe Ingram MD at [facility] DECOMPRESSION OF SUBACROMIAL SPACE WITH PARTIAL ACROMIOPLASTY Right 05/15/2022 Performed by Chepe Ingram MD at [facility] INJECTION BLOCK EPIDURAL STEROID LUMBAR/SACRAL: L 4/5 WU N/A 04/22/2021 Performed by Pete Silver MD at [facility] INJECTION BLOCK SACROILIAC JOINT Left 03/27/2023 Performed by Pete Silver MD at [facility] CERVICAL OR THORACIC EPIDURAL BLOCK WITH STEROIDS: C67 WU N/A 01/29/2018 Performed by Pete Silver MD at [facility] LUMBAR OR SACRAL EPIDURAL BLOCK WITH STEROIDS: L45 WU N/A 10/15/2018 Performed by Pete Silver MD at [facility] MEDIAL BRANCH NERVE BLOCK: bilat L45 51 Bilateral 07/30/2018 Performed by Pete Silver MD at [facility] INJECTION SPINE TRANSFORAMINAL: left C 5,6 Nroot Left 01/09/2023 Performed by Pete Silver MD at [facility] LAPAROSCOPIC CHOLECYSTECTOMY N/A 09/16/2016 Performed by Juan Ramon Jean MD at [facility] LIVER BIOPSY EMA PROCEDURE Right 05/15/2022 Performed by Chepe Ingram MD at [facility] NASAL SURGERY REPAIR HERNIA UMBILICAL 09/16/2016 Performed by Juan Ramon Jean MD at [facility] TONSILLECTOMY Allergies Allergen Reactions Metformin Severe hypoglycemia [...] Hodge 04/30/23 1141 documented in this encounter [facility] 04-28-2023 Instructions Peg Conrad CNA [...] nearest emergency room. documented in this encounter [facility] 04-20-2023 Hospital Discharg e instructions Precious Urbina APRN - CNP - 04/20/2023 1:50 PM EST Increase fluid Tylenol Motrin for cough Continue home medications The following attachments cannot be sent through Care Everywhere.Head Injury: Closed: General Info (Emirati)Cervical Strain (Emirati)documented in this encounter [facility] [...] medications prescribed to someone other than her. 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 Patient's pharmacy was confirmed with her. Order pended for review and signature. documented in this encounter [facility] 03-31-2023 Telephone encounter Note Patient calls today [...] are prescribed to someone other than her. [facility] 03-31-2023 Telephone encounter Note Is she still taking prozac? What dosage? Any other antidepressants? [facility] 03-31-2023 Telephone encounter Note Call placed to patient to confirm whether or not she is taking Prozac or other antidepressants. Patient states she is taking 40 mg Prozac daily. That is the only antidepressant that she takes. She is prescribed Latuda and Lamictal to treat Bipolar. [facility] 03-31-2023 Telephone encounter Note Can try cymbalta 30mg once daily [facility] 03-31-2023 Telephone encounter Note Call placed to patient to inform her of provider's response. Patient is also educated not to take medications that are prescribed to someone other than her. Patient voices that she is aware that she should not be taking medications prescribed to someone other than her. 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 Patient's pharmacy was confirmed with her. Order pended for review and signature. [facility] 03-05-2023 Evaluation note Encounter Date Diagnosis Assessment [...] was counseling done by myself, Rhina ROBERTSON. [facility] Other 01-01-2024 Hospital Discharge instructions* Discharge Instructions* Sil Sullivan DO - 03/02/2023 7:49 PM EST Please follow-up with your GI doctor, trial enema at home, return to the ER for worsening abdominalpain, inability to pass gas, or nausea, vomiting * Attachments The following attachments cannot be sent through Care Everywhere. * Constipation (Emirati) [facility] Miscellaneous Notes* Telephone Encounter - Argenis Storm [...] when she was under his care in [place]. She is currently taking Meloxicam that helps [...] She states whatever . [facility] Note* Telephone Encounter [...] when she was under his care in [place]. She is currently taking Meloxicam that helps [...] add Dr. Silver on the note. PVU. [employer]12-22-2023 Telephone encounter Note* Telephone Encounter - Pete Silver MD - 02/20/2023 10:04 AM EST Discussed with nurse, I agree with Fartun's treatment plan going forward. [employer]12-22-2023 Telephone encounter Note* Telephone Encounter - UMESH Hodge - 02/20/2023 10:04 AM EST No Rx for tramadol. I have never written prescription for bra so I would not know how to proceed with anything like that. [employer]12-22-2023 Telephone encounter Note* Telephone Encounter - Argenis Storm RN - 02/20/2023 10:04 AM EST Patient aware of response. She states whatever . [facility] [employer]12-20-2023 Evaluation note* Encounter Date Diagnosis Assessment Notes Treatment Notes Treatment Clinical Notes Jan, Constipation, unspecified constipation type (ICD-10 - K59.00) Jan, Constipation (ICD-10 - K59.00) [facility] Other 12-12-2023 Miscellaneous Notes* Telephone Encounter - [...] and has f/u appt [facility] Tele[facility] encounter Note* Telephone Encounter [...] pain is now related to sacroiliac joint. [facility]12-12-2023 Telephone encounter Note* Telephone Encounter [...] sufficient reason to deny the current request. [facility]12-12-2023 Telephone encounter Note* Telephone Encounter - Alfredito William - 02/10/2023 8:18 AM EST GOT APPROVAL [facility] [id number] Telephone encounter Note* Telephone Encounter - Maty Fulton RN - 02/10/2023 8:18 AM EST Pt is scheduled 03/27 for procedure and has f/u appt [facility] [id number] Evaluation note* Encounter Date Diagnosis Assessment Notes [...] R10.9) Jan, Rectal bleed (ICD-10 - K62.5) [facility] Other 11-16-2023 Evaluation note* Encounter Date Diagnosis [...] was counseling done by myself, Rhina Scally ACCOUNTANT PROPERTY-C. [facility] Other 11-08-2023 Evaluation note* Encounter Date Diagnosis [...] HAVE PATIENT START DOCUSATE 3 CAPSULES DAILY. [facility] Other 06-29-2023 Evaluation note* Encounter Date Diagnosis Assessment Notes Treatment Notes Treatment Clinical Notes Jul, Obesity (ICD-10 - E66.9) Jul, BMI 34.0-34.9,adult (ICD-10 - Z68.34) Jul, Other Summary of Visi t: (A) discussed continuing to work on small goals until stress decreases and she has the energy to increase goals (B) discussed healhtier choices at [employer]- food blog reviewed (C) reviewed food storage tips for keeping produce fresh longer Patient set the following goals: - NEW: continue to choose sugar free beverages- not reviewed [facility] Other 05-30-2023 Evaluation note* Encounter Date Diagnosis [...] was counseling done by myself, Rhina ROBERTSON. [facility] [facility] Other 03-21-2023 Evaluation note* Encounter Date Diagnosis [...] was counseling done by myself, Rhina ROBERTSON. [employer] [facility] Other 02-07-2023 Evaluation note* Encounter Date Diagnosis [...] set the following goals: not reviewed today [facility] Other 02-07-2023 Evaluation note* Encounter Date Diagnosis [...] was counseling done by myself, Rhina ROBERTSON. [facility] [facility] Other 12-28-2022 Evaluation note* Encounter Date Diagnosis [...] patient set personal goal using given handout. [facility] Other 12-27-2022 Evaluation note* Encounter Date Diagnosis [...] was counseling done by myself, Rhina ROBERTSON. [facility] Other 12-01-2022 NotePROCEDURE: XR ANKLE LT MIN [...] Electronically authenticated by: ONEL CLARK Date: 2022-01-29 22:30[facility]12-01-2022 NotePROCEDURE: XR ANKLE LT MIN [...] Electronically authenticated by: ONEL CLARK Date: 2022-01-29 22:30[facility]11-15-2022 Evaluation note* Encounter Date Diagnosis [...] was counseling done by myself, Rhina ROBERTSON. [facility] [facility] Other 10-05-2022 Evaluation note* Encounter Date Diagnosis [...] was counseling done by myself, Rhina ROBERTSON. [facility] [facility] Other 08-30-2022 Evaluation note* Encounter Date Diagnosis Assessment Notes Treatment Notes Treatment Clinical Notes Sep, Fatty liver (ICD-10 - K76.0) ENCOURAGED WEIGHT LOSS Sep, Obesity (BMI 30-39.9) (ICD-10 - E66.9) [facility] Other 08-23-2022 Hospital Discharge instructions* Discharge Instructions* Stanley Almonte PA-C - 10/22/2021 2:03 PM EDT Follow-up with primary care doctor 7 to 10 days for reevaluation. Take Motrin 800 mg as directed with food. Start eardrops left ear as directed. Promptly return to emergency department for new, changing or worsening of symptoms or other concerns. [facility] Work Phone: evaluation + Plan note No data available for this section [facility]* Diagnosis Pilonidal cyst- Primary Pilonidal cyst without mention of abscess documented in this encounter [facility] [employer] Work Phone: evalrcyfyq note* Diagnosis Acute diffuse otitis externa of left ear- Primary documented in this encounter [facility] [employer] Work Phone: evalhvruoy noteNo [employer] Other evaluation note* Diagnosis Constipation, unspecified constipation type- Primary documented in this encounter [facility] [employer] noteNo assessment information available [facility] Work Phone: evaluation note* Diagnosis Closed head injury, initial encounter- Primary Fall due to slipping on ice or snow, initial encounter Acute cervical myofascial strain, initial encounter documented in this encounter [facility] [employer] note* Diagnosis Lumbosacral spondylosis without myelopathy- Primary documented in this encounter [facility] System[facility] note* Diagnosis Mass of upper outer [...] liver acute IBS (irritable bowel syndrome) acute [facility] Work Phone: evalunzljl note* Diagnosis Dizziness- Primary Dizziness and giddiness documented in this encounter [facility] note* Diagnosis Macromastia- Primary Hypertrophy of breast [facility] System[facility]* Diagnosis JADON (obstructive sleep apnea)- [...] Surgical History CHOLECYSTECTOMY Hospitalization History SEE ABOVE [facility] Other [employer] general Narrative - Reported* Type Description Date Medical History PTSD Medical History DIVERTICULITOUS Medical History bipolar Medical History ADHD Surgical History 2 BACK INJECTIONS 2014 Surgical History LEFT ANKLE 2002 Surgical History CHOLECYSTECTOMY Surgical History nasal surgery Hospitalization History SEE ABOVE [facility] Other [employer] general Narrative - Reported* Type Description Date Medical History PTSD Medical History DIVERTICULITOUS Medical History bipolar Medical History ADHD Surgical History 2 BACK INJECTIONS 2014 Surgical History LEFT ANKLE 2001 Surgical History CHOLECYSTECTOMY Surgical History nasal surgery Surgical History right Rotator surgery 05-15-22 Hospitalization History SEE ABOVE [facility] Other Hisjgvj general Narrative - Reported* Type Description Date Medical History PTSD Medical History DIVERTICULITOUS Medical History bipolar Medical History ADHD Medical History rotator cuff tear Surgical History 2 BACK INJECTIONS 2014 Surgical History LEFT ANKLE 2002 Surgical History CHOLECYSTECTOMY Surgical History nasal surgery Surgical History right Rotator surgery 05-15-22 Hospitalization History SEE ABOVE [facility] Other Hisdzdn general Narrative - Reported* Type Description Date Medical History PTSD Medical History DIVERTICULITOUS Medical History bipolar Medical History ADHD Medical History rotator cuff tear Surgical History 2 BACK INJECTIONS 2014 Surgical History LEFT ANKLE 2001 Surgical History CHOLECYSTECTOMY Surgical History nasal surgery Surgical History right Rotator surgery 05-15-22 Surgical History Neck injections/root burnt 12/31 Hospitalization History SEE ABOVE [facility] Other Hiszgap general Narrative - Reported* Type Description Date Medical History PTSD Medical History DIVERTICULITOUS Medical History bipolar Medical History ADHD Medical History rotator cuff tear Surgical History 2 BACK INJECTIONS 2014 Surgical History LEFT ANKLE 2001 Surgical History CHOLECYSTECTOMY Surgical History nasal surgery Surgical History right Rotator surgery 05-15-22 Surgical History Neck injections/root burnt 12/31 Hospitalization History SEE ABOVE Hospitalization History [facility]- c onstipation 03-02-2023 PEX Card Other Hospital Discharge instructions* Attachments The following attachments cannot be sent through Care Everywhere. * Pilonidal Abscess (Emirati) documented in this encounter[facility]ON [email or web address] [facility] [employer] Work Phone: Hospital Discharge instructions No data available for this section [facility] CenterInstructionsNot on filedocumented in this encounter [facility]ructionsNot on filedocumented in this encounter [facility] SystemInstructionsNot on filedocumented in this encounter [facility] SystemInstructionsNot on filedocumented in this encounter [facility] SystemInstructionsNot on filedocumented in this encounter [facility] SystemInstructionsNot on filedocumented in this encounter [facility] SystemProgress note No data available for this section [facility] CenterReason for referral (narrative)* Consultation (Routine) - Pending Review Specialty Diagnoses / Procedures Referred By Karla cudara Referred To Contact Otolaryngology Diagnoses JADON (obstructive sleep apnea) Procedures CO OFFICE/OUTPATIENT NEW HIGH MDM 60 MINUTES Brittany Neville NP [address] [facility] [address] [place] [address] Referral ID Status Reason Start Date Expiration Date Visits Requested Visits Authorized [id number] Pending Review Specialty Services Required 11/30/2023 05/28/20[address] Brito for Inspire device. NATALIIA Craven for visit Narrative* Consultation (Routine) - Pending Review Specialty Diagnoses / Procedures Referred By Karla cuadra Referred To Contact Breast Surgery Diagnoses Abnormal mammogram Carmen Fisher MD [address] [place] [id number] Ila Trevizo MD [address] [place] [phone] Referral ID Status Reason Start Date Expiration Date V isits Requested Visits Authorized [id number] Pending Review 05/06/2023 05/05/2024 1 1 [facility] Summary Purpose Family History No Family History [...] PA [address] [place] [address] Referral ID Status Reason Start Date Expiration Date V isits Requested Visits Authorized [id number] Pending Review 04/28/2023 04/27/2024 1 1 Chief [...] section and content) DATE CREATED AUTHOR 08/26/2017 [facility] DATE CREATED AUTHOR AUTHOR'S ORGANIZ ATION 05/30/2022 [facility] DATE CREATED AUTHOR AUTHOR'S ORGANIZ ATION 01/18/2023 [facility] DATE CREATED AUTHOR AUTHOR'S ORGANIZ ATION 06/04/2023 [facility] DATE CREATED AUTHOR AUTHOR'S ORGANIZ ATION 10/10/2023 [facility] DATE CREATED AUTHOR AUTHOR'S ORGANIZ ATION 11/30/2023 [facility] DATE CREATED AUTHOR AUTHOR'S ORGANIZ ATION 12/22/2023 [facility] DATE CREATED AUTHOR AUTHOR'S ORGANIZ ATION 02/05/2024 [facility] DATE CREATED AUTHOR AUTHOR'S ORGANIZ ATION 02/12/2024 [facility] DATE CREATED AUTHOR AUTHOR'S ORGANIZ ATION 03/15/2024 [facility] Reason for Visit (unrecogniz [...] Dispensed Refills Start Date End Da te nkdfmzul-kkqxvmxsy-cyekwj ortisone (CORTISPORIN) [id number] 4 drops into the [...] Care Teams (unrecognized sec tion and content) Pediatric Associate Relationship Specialty Start Date End Date Shawna Mcfadden DO [address] [place], [place] [id number] PCP - General Family Medicine 10/12/21 Pediatric Associate Relationship Specialty Start Date End Date Shawna Mcfadden DO [address] [place] [address] PCP - General Family Medicine 10/12/21 Pediatric Associate Relationship Specialty Start Date End Date Shawna Mcfadden DO [address] [place] [address] PCP - General Family Medicine 10/12/21 Pediatric Associate Relationship Specialty Start Date End Date Shawna Mcfadden DO [address] [place] [address] PCP - General Family Medicine 05/02/22 Pediatric Associate Relationship Specialty Start Date End Date Shawna Mcfadden DO [address] [place] [address] PCP - General Family Medicine 10/12/21 Pediatric Associate Relationship Specialty Start Date End Date Shawna Mcfadden DO [address] [place] [address] PCP - General Family Medicine 05/02/22 Team [...] Care Provider Active Start: March 18, 2023 Pediatric Associate Relationship Specialty Start Date End Date Shawna Mcfadden DO [address] [facility] [place] [address] PCP - General Family Medicine 05/02/22 Pediatric Associate Relationship Specialty Start Date End Date Shawna Mcfadden DO [address] [facility] [facility] [place] [address] PCP - General Family Medicine 10/12/21 Pediatric Associate Relationship Specialty Start Date End Date Shawna Mcfadden DO [address] [facility] [place] [address] PCP - General Family Medicine 05/02/22 Pediatric Associate Relationship Specialty Start Date End Date Shawna Mcfadden DO [address] [place] [address] PCP - General Family Medicine 10/12/21 Pediatric Associate Relationship Specialty Start Date End Date Shawna Mcfadden Rena [address] [place] [address] PCP - General Family Medicine 05/02/22 Pediatric Associate Relationship Specialty Start Date End Date Shawna Mcfadden [address] [place] [id number] PCP - General Family Medicine 05/02/22 Team Status: Active Member Role Status Dates Rory Driver , [facility]- Primary Care Provider Active Team Status: Inactive Member Role Status Dates Gayathri Adams APRN Attending Provider Active Start: May 21, 2023 End: May 21, 2023 Rory Driver , [facility] Primary Care Provider Active Start: May 21, 2023 End: May 21, 2023 Team Status: Inactive Member Role Status Dates Jan Garg APRN Attending Provider Active Start: May 21, 2023 End: May 21, 2023 Rory Driver , [facility] Primary Care Provider Active Start: May 21, 2023 End: May 21, 2023 Pediatric Associate Relationship Specialty Start Date End Date Shawna Mcfadden DO [address] [place] [address] PCP - General Family Medicine 10/12/21 Pediatric Associate Relationship Specialty Start Date End Date Shawna Mcfadden DO [address] [place], [place] [id number] PCP - General Family Medicine 10/12/21 Pediatric Associate Relationship Specialty Start Date End Date Loreto Mcneal APRN - [employer] [address] [place] [address] PCP - General 11/11/23 Pediatric Associate Relationship Specialty Start Date End Date Loreto Mcneal APRN - NP [address] [facility] [place] [address] PCP - General 11/11/23 Pediatric Associate Relationship Specialty Start Date End Date Loreto Mcneal APRN - NP [address] [facility] [place] [address] PCP - General 11/11/23 Pediatric Associate Relationship Specialty Start Date End Date [facility] [address] [place], [place] PCP - General Family Medicine 10/05/23 Pediatric Associate Relationship Specialty Start Date End Date Loreto Mcneal APRN - NP [address] [facility] [place] [address] PCP - General 11/11/23 Pediatric Associate Relationship Specialty Start Date End Date Shawna Mcfadden DO [address] [place] [address] PCP - General Family Medicine 04/14/22 Key Andrea NP [address] [place] [address] Referring Physician Family Medicine 08/13/23 Pediatric Associate Relationship Specialty Start Date End Date Key Andrea NP [address] [place] [address] Referring Physician Family Medicine 08/13/23 Pediatric Associate Relationship Specialty Start Date End Date Key Andrea NP [address] [place] [address] Referring Physician Family Medicine 08/13/23 Pediatric Associate Relationship Specialty Start Date End Date Key Andrea NP [address] [place] [address] Referring Physician Family Medicine 08/13/23 Pediatric Associate Relationship Specialty Start Date End Date Shawna Mcfadden DO [address] [place] [address] PCP - General Family Medicine 04/14/22 Key Andrea NP [address] [place], [place] [id number] Referring Physician Family Medicine 08/13/23 Team Status: Inactive Member Role Status Dates Rory Driver [facility] Primary Care Provider Active Start: January 21, 2024 End: January 21, 2024 MELE Best Attending Provider Active Start: January 21, 2024 End: January 21, 2024 Team Status: Inactive Member Role Status Dates Rory Driver [facility] Primary Care Provider Active Start: March [...] BE BASED ON THE PRIMARY CLINICAL RECORDS. [facility]. provides no warranty or guarantee of the accuracy or completeness of information in this document.
== END 2024-04-06 11:01 | disposition home or self-care (01) ==
LOC: RAD 11:00
PROVIDERS: PCP Nurse Practitioner Family; Visit Provider Podiatrist Foot & Ankle Surgery
DX: M25.572 Pain in left ankle and joints of left foot (principal)
CPT/HCPCS: 73610; 73630

== ENCOUNTER 2024-04-18 12:12 | Outpatient (OUT) | payer OTHER, SELFPAY ==
[2024-04-18 13:06] LABS: Estimated Average Glucose 123 mg/dL; Glycohemoglobin A1C 5.9 % (4.5-6.2)
[2024-04-18 13:15] LABS: Glucose 101 mg/dL (74-106); Thyroid Stimulating Hormone 0.572 uIU/mL (0.358-3.740)
[2024-04-18 13:54] LABS: Free T4 1.03 ng/dL (0.76-1.46)
[2024-04-19 04:06] LABS: C-Peptide, Serum 7.5 ng/mL (1.1-4.4); DHEA-Sulfate 28.5 ug/dL (57.3-279.2); Estradiol <5.0 pg/mL (.); Insulin 32.4 uIU/mL (2.6-24.9); Progesterone <0.1 ng/mL (.); Sex Horm Binding Glob, Serum 38.6 nmol/L (24.6-122.0)
[2024-04-19 14:08] LABS: Thyroglobulin Antibody <1.0 IU/mL (0.0-0.9); Thyroid Peroxidase (TPO) Ab 10 IU/mL (0-34)
[2024-04-20 16:08] LABS: Estrone, Serum 12 pg/mL (.)
[2024-04-21 09:08] LABS: Reverse T3, Serum 14.3 ng/dL (9.2-24.1)
[2024-04-22 16:09] LABS: Serotonin, Serum 11 ng/mL (31-207)
[2024-04-22 22:07] LABS: Free Testosterone(Direct) 0.5 pg/mL (0.0-4.2); Testosterone <3 ng/dL (4-50)
== END 2024-04-18 12:13 | disposition home or self-care (01) ==
LOC: LAB 12:15
PROVIDERS: PCP Nurse Practitioner Family; Visit Provider Obstetrics & Gynecology
DX: E34.9 Endocrine disorder, unspecified (principal)
CPT/HCPCS: 36415; 82306; 82530; 82627; 82670; 82679; 82728; 82947; 83036; 83525; 84144; 84260; 84270; 84402; 84403; 84432; 84436; 84439; 84443; 84481; 84482; 84681; 86376; 86800

== ENCOUNTER 2024-04-27 12:56 | Outpatient (OUT) | payer OTHER, SELFPAY ==
--- NOTE | 2024-04-27 13:24 | P.CN_ITS ---
Consult Note: HPI Data of Consult Patient: known to practice within the last 3 years Requesting Physician: Nancy Lipscomb NP Primary Care Provider: Loreto Mcneal NP Consult Narrative Reason for consult: neck/shoulder pain Narrative: Karma Candelaria a 43 year old female presents for evaluation of cervical pain. hx of cervical radiculopathy, was receiving ESIs at prior pain management for cervical radiculopathy with minimal improvement per pt. pt engaged in lead caregiver biweekly with mild relief. has been engaged in PT, dry needling, massage extensively over the last 2 years without improvement in pain or functional ability. Today pain 7/10 burning aching with radiation into BUE. reports prior emg of upper extremities, results reviewed and unremarkable. currently on duloxetine, gabapentin, flexeril, diclofenac with mild relief without side effects. Pain increased with twisting her head, driving, housework, ADLs. Pain improved with lying and sitting. recently underwent cervical MRI which is consistent with degenerative changes and multilevel disc bulge with stenosis. cc:: CC: Nancy Lipscomb NP Review of Systems ROS Status of ROS 10 or more systems reviewed and unremark able except as noted in history and below Musculoskeletal Reports: neck pain and extremity pain PFSH PFSH Social History Little interest or pleasure in doing things: not at all Feeling down, depressed, or hopeless: not at all Meds Home Medications and Allergies Home Medications ?Medication ?Instructions ?Recorded ?Confirmed ?Type Bifidobacterium infantis 4 mg 4 mg PO DAILY 10/24/23 03/31/24 History capsule (Align (B.infantis)) ascorbic acid (vitamin C) 500 mg 500 mg PO BID 10/24/23 03/31/24 History tablet (Vitamin C) ciclopirox 0.77 % topical cream 1 applic topical Q12H 10/24/23 03/31/24 History duloxetine 60 mg capsule,delayed 60 mg PO DAILY 10/24/23 03/31/24 History release empagliflozin 25 mg tablet 25 mg PO DAILY 10/24/23 03/31/24 History (Jardiance) famotidine 40 mg tablet 40 mg PO DAILY 10/24/23 03/31/24 History fluoxetine 60 mg tablet 60 mg PO DAILY 10/24/23 03/31/24 History gabapentin 300 mg capsule 300 mg PO Q8H 10/24/23 03/31/24 History lamotrigine 200 mg tablet 200 mg PO DAILY 10/24/23 03/31/24 History lurasidone 120 mg tablet 120 mg PO DAILY 10/24/23 03/31/24 History multivitamin with folic acid 400 1 tab PO DAILY 10/24/23 03/31/24 History mcg tablet (Daily-Karely (with folic acid)) pioglitazone 30 mg tablet 30 mg PO DAILY 10/24/23 03/31/24 History rosuvastatin 10 mg tablet 10 mg PO DAILY 10/24/23 03/31/24 History sumatriptan succinate 100 mg tablet 100 mg PO Q2H PRN migraine headache 10/24/23 03/31/24 History trazodone 50 mg tablet 50 mg PO DAILY 10/24/23 03/31/24 History vitamin B complex 1 tab PO Q24H 10/24/23 03/31/24 History albuterol sulfate 0.63 mg/3 mL 0.63 mg inhalation TID PRN 11/16/23 03/31/24 History solution for nebulization bronchospasm albuterol sulfate 90 mcg/actuation 2 inh inhalation QID PRN shortness 11/16/23 03/31/24 History aerosol inhaler (Proventil HFA) of breath or wheezing biotin injectioin .every other week 11/16/23 History diclofenac sodium 75 mg 75 mg PO BID PRN pain #60 tabs 11/16/23 03/31/24 Rx tablet,delayed release fluticasone propionate 50 1 spray intranasal DAILY PRN 11/16/23 03/31/24 History mcg/actuation nasal allergy symptoms spray,suspension (24 Hour Allergy Relief) invizia 11/16/23 History rizatriptan 10 mg tablet (Maxalt) See Rx Instructions PO .COMPLEX 11/16/23 03/31/24 History ferrous sulfate 325 mg (65 mg 325 mg PO DAILY 01/08/24 03/31/24 History iron) tablet (FeroSul) docusate sodium 100 mg capsule 300 mg PO DAILY 01/11/24 03/31/24 History linaclotide 290 mcg capsule 290 mcg PO DAILY 01/11/24 03/31/24 History (Linzess) cyclobenzaprine 10 mg tablet See Rx Instructions .Route 03/10/24 03/31/24 Rx .COMPLEX PRN muscle spasm #90 tabs azithromycin 250 mg tablet See Rx Instructions PO .COMPLEX #6 03/31/24 Rx (Zithromax Z-Ramon) tabs zurgxltyyjwmydt-dhvixcqlojyzjpv-TE 10 ml PO Q6H PRN cold symptoms 03/31/24 Rx 2 mg-30 mg-10 mg/5 mL oral syrup #200 mL (Bromfed DM) cholecalciferol (vitamin D3) 125 125 mcg PO DAILY 03/31/24 03/31/24 History mcg (5,000 unit) tablet (Vitamin D3) fexofenadine 180 mg tablet 180 mg PO DAILY 03/31/24 03/31/24 History lisdexamfetamine 70 mg capsule 70 mg PO QAM 03/31/24 03/31/24 History (Vyvanse) metoprolol succinate 25 mg 12.5 mg PO DAILY 03/31/24 03/31/24 History tablet,extended release 24 hr ondansetron 4 mg disintegrating 4 mg PO Q6H PRN nausea and 03/31/24 Rx tablet vomiting #12 tabs prednisone 10 mg tablet 10 mg PO DAILY 03/31/24 03/31/24 History Allergies Allergy/AdvReac Type Severity Reaction Status Date / Time cephalexin (From Keflex) Allergy Intermediate Rash Verified 02/01/24 08:38 citalopram (From Celexa) Allergy Intermediate Rash Verified 02/01/24 08:38 metformin Allergy Intermediate Nausea Verified 02/01/24 08:38 Exam Constitutional Documenting provider has reviewed patient's vital signs: yes Common normals: no apparent distress, oriented x3, healthy appearing, alert and well nourished General appearance: cooperative [facility] Common normals: normocephalic, hearing grossly normal bilaterally and moist oral mucous membranes Head and scalp: normocephalic Eye Common normals: PERRL Pupil: PERRL Neck & C-Spine Common normals: full ROM General: normal visual inspection Cervical spine: cervical ROM abnormal, pain with cervical ROM and cervical spine tenderness Other: positive spurlings strength 4/5 in BUE decreased sensation to C5,6,7 facet loading positive C3-6 Chest Common normals: inspection of chest normal Respiratory Common normals: normal respiratory effort, no retractions and no use of accessory muscles Neuro Common normals: oriented x3, CN's II-XII intact bilaterally, moves all extremities, no focal motor deficits, no sensory deficits noted and deep tendon reflexes 2+ bilaterally Sensorium/orientation: alert Motor exam: strength 5/5 throughout and no movement abnormalities noted Psych Common normals: mental status grossly normal, thought process normal, cooperative, affect normal, speech normal and activity/motor behavior normal Speech: normal speech Thought process: normal thought process Results Imaging cervical MRI: Attestation: I have reviewed the pertinent imaging results. Radiologist's impression: Straightening normal cervical lordosis. Vertebral body heights and facet alignments are maintained. Probable hemangioma are noted in the C6 and C7 vertebral bodies. No acute or aggressive osseous abnormality is evident. There is also probable hemangioma in the T3 vertebral body. Limited evaluation of the paravertebral soft tissues is without acute abnormality. Bilateral subcentimeter thyroid nodules are present. C2-C3: No focal disc herniation identified. No spinal canal or neural foraminal stenosis. C3-C4: No focal disc herniation identified. No spinal canal or neural foraminal stenosis. C4-C5: Minimal broad-based disc bulge without spinal canal stenosis. No neural foraminal stenosis. C5-C6: Diffuse broad-based disc bulge with a probable superimposed left paracentral disc extrusion with inferior migration. Mild to moderate spinal canal stenosis. Moderate bilateral neural foraminal stenosis, left greater than right secondary to broad-based disc bulge and facet arthropathy. C6-C7: Minimal broad-based disc bulge without spinal canal stenosis. No neural foraminal stenosis. C7-T1: No focal disc herniation identified. No spinal canal stenosis. Mild bilateral neural foraminal stenosis, right greater than left secondary to uncovertebral degeneration facet arthropathy. Additional Findings Additional findings: If on a controlled substance or opioids, I have checked an [place] report on this patient and there are no aberrancies noted in the prescribing history.??If on a controlled substance or opioid a drug screen was completed and reviewed within the last year, and if there has not been a drug screen completed we ordered one today to monitor higher risk, state monitored pain medication use. As part of providing excellent, safe, comprehensive care, the following was co mpleted at our patient's visit: 1. A medication reconciliation and review to ensure accurate knowledge of current/active medications, including asking our patients to inform us about any [id number] medications or herbal remedies/nutritional supplements/alternative remedies. 2. A review to specifically ensure our patients have had annual screening for screening for depression, screening for tobacco use, and screening for unhealthy alcohol use. For concerning screenings had a discussion with the patient, provided patient education, and recommended follow-up with primary care provider when appropriate. If patient noted with a risk of falling, they received education on strength, gait, and balance training to prevent future risk of falling. Portions of this note may have been carried over from the previous visit and updated as appropriate. Please note this office utilizes paper charting in addition to the electronic medical record. A list of current medications, vitals, and PMH is available there as the clinical staff outside of myself do not have access to [facility] charting during the clinic day operations. As part of providing quality c omprehensive care the current medications, vitals, and PMH were reviewed in the paper chart. Assessment and Plan Assessment and Plan (1) Cervical radiculopathy: Assessment and Plan: The patient has had over 3 months of moderate to severe neck pain with functional impairment and inadequate response to conservative care including NSAIDS (unless there are contraindication such as concurrent blood thinners), multiple oral or topical pain medications, and home exercise program/physical therapy.? Patient has completed >6 weeks of guided home exercise program and/or formal physical therapy program without relief of their symptoms.? I have reviewed the imaging of the cervical spine and no red flags were identified.? The imaging reveals radiographic findings consistent with cervical radiculopathy The Oswestry Disability Index was completed, and the patient scored a 49%.? The patient noted the following:?? moderate to severe pain, pain impacting ADLs, pain impacting ability to sleep, travel, and social life We discussed the risks and benefits of the procedure with the patient, and we are NOT planning on using sedation as outlined in the guidelines from Medicare unless there is a documented reason that sedation would be strongly recommended.?? (2) Cervical spondylosis: Plan cervical MRI reviewed with pt, proceed with left C5,6 C6,7 TFESI under fluoroscopy continue HEP and PT as tolerated continue current medications f/u 2 weeks after injection
== END 2024-04-27 12:57 | disposition home or self-care (01) ==
LOC: PM 12:58
PROVIDERS: PCP Nurse Practitioner Family; Visit Provider Nurse Practitioner
DX: M54.12 Radiculopathy, cervical region (principal); M47.812 Spondylosis without myelopathy or radiculopathy, cervical region
CPT/HCPCS: G0463

== ENCOUNTER 2024-05-09 07:10 | Day surgery (SDC) | payer OTHER, SELFPAY ==
--- OUTSIDE RECORDS SUMMARY | 2024-05-09 07:13 | XMS_ITS | CCD ---
Author Organization [facility] Care Team Providers Care Hostel Parent Name Role Phone Juan Ramon Jean Unavailable Unavailable Juan Ramon Jean Unavailable Unavailable DOMENICA OLIVA Unavailable Unavailable RumschShawna pan DO Primary Care Provider Yo Blank Unavailable Gayathri Adams Unavailable Tamar Sosa Unavailable SHIRLENE ., DR VARGAS Attending Unavailable SHIRLENE ., DR VARGAS Consulting Unavailable MISC, DR TRAORE Primary Care Unavailable SHIRLENE ., DR VARGAS Admitting Unavailable HIGHLANDERJOY Admitting [...] Garg Unavailable DOMENICA OLIVA Primary Care Physician [phone] HILARY GRANADO Referring Unavailable HILARY GRANADO Attending Unavailable Shawna Dudley DO Primary Care Provider MD Yo Blank Attending Provider DO Shawna Dudley Primary Care Provider BOGDAN SHAWNA K Referring Unavailable RUMSCHLAG, SHAWNA K Primary Care Unavailable RUMSCHLAG, SHAWNA K Referring Unavailable RUMSCHLAG, SHAWNA K Primary Care Unavailable FORTINO ROBLEDO Attending Unavailable JORGE, LISA Referring Unavailable RUMSCHLAG, SHAWNA K Primary Care Unavailable ADAM MASSEY Attending Unavail able RUMSCHLAG, SHAWNA K Referring Unavailable SERVICES, [facility] Primary Care Unava ilable Fredis ACADEMIC SUPPORT DIRECTOR - BRAND MARKETING COORDINATOR, Loreto Primary Care [facility] ider SERVICES, [facility] Primary Care Unava ilable SHAMMO, RORY Referring Unavailable RUMSCHLAG, SHAWNA K Primary Care Unavailable SHAMMO, RORY Referring Unavailable RUMSCHLAG, SHAWNA K Primary Care Unavailable ZAC HANNA Attending Unavailable ZAC HANNA Referring Unavailable RUMSCHLAG, SHAWNA K Primary Care Unavailable ZAC HANNA Admitting Unavailable ZAC HANNA Attending Unavailable RUMSCHLAG, SHAWNA K Referring Unavailable RUMSCHLAG, SHAWNA K Primary Care Unavailable JORGE, LISA Referring Unavailable SERVICES, [facility] Primary Care Unava ilable GAURAV SELLERS Attending Unavailable RUMSCHLAG, SHAWNA K Referring Unavailable RUMSCHLAG, SHAWNA K Primary Care Unavailable Bk DALE, Ugo Stoddard Attending Unavailable Bk DALE, Ugo Stoddard Attending Unavailable Bk DALE, Andmelisa Stoddard Attending Unavailable RUMSCHLAG, SHAWNA Referring Unavailable RUMSCHLAG, SHAWNA Primary Care Unavailable RUMSCHLAG, SHAWNA Referring Unavailable RUMSCHLAG, SHAWNA Primary Care Unavailable RUMSCHLAG, SHAWNA Primary Care Unavailable RUMSCHLAG, SHAWNA Referring Unavailable NAVEEN SANCHEZ Attending Unavailable RUMSCHLAG, SHAWNA Primary Care Unavailable RUMSCHLAG, SHAWNA Primary Care Unavailable RUMSCHLAG, SHAWNA Referring Unavailable SIL SULLIVAN Attending Unavailable RUMSCHLAG, SHAWNA Primary Care Unavailable LISETTE JUNIOR Attending Unavailable LORETO MCNEAL Primary Care Unavailable RUMSCHLAG, SHAWNA Referring Unavailable [...] MYERHOLTZ, LORETO Primary Care Unavailable NAVEEN SANCHEZ Attending Unavailable RUMSCHLAG, SHAWNA Primary Care Unavailable RUMSCHLAG, SHAWNA Referring Unavailable MYERHOLTZ, LORETO Primary Care Unavailable RUMSCHLAG, SHAWNA Primary Care Unavailable RUMSCHLAG, SHAWNA Referring Unavailable Zully BRAND MARKETING COORDINATOR, Key Unavailable Rumashleylahaider DOShawna Primary Care Provider [facility] Primary Care Provider [phone] Mio Marroquin DO Attending Provider Unavailab le NON STAFF Primary Care Unavailable Ditty, Yo J Admitting Unavailable Yo Blank Attending Unavailable Mio Marroquin Attending Unavailable Villa, Rory Cuadra Primary Care Unavailable Mio Marroquin Admitting Unavailable Shammo, Rory T Primary Care Unavailable Myrtle Cerna Admitting Unavailable Myrtle Cerna Attending Unavailable MENDEZ CARDOSO Attending Unavailable BRITTANY NEVILLE Attending Unavailable LAILA LIEBERMAN Attending Unavailable ROEL GARBER Attending Unavailable ROEL GARBER Attending Unavailable CLEO ZAMBRANO Attending Unavailable CLEO ZAMBRANO Referring Unavailable Allergies Allergy Classification Reported Allergen(s) Allergy Type Date of Onset Reaction(s) Facility Cephalosporins (antibiotic) (2 sources) Cephalexin Drug Allergy 7 [facility] Serotonin Reuptake Inhibitors (SSRIs) (2 sources) Citalopram Drug Allergy 7 [facility] (20 sources) cephalexin; Translations: [Keflex] Drug Allergy [address] [facility] Repository (4 sources) citalopram; Translations: [CeleXA] Drug Allergy 3 AOF, heart palpitation [facility] Repository (20 sources) Cephalexin; Translations: [CEPHALEXIN] Drug Allergy 4 [facility] Work Phone: (20 sources) Citalopram; Translations: [CITALOPRAM] Drug Allergy 4 Hives, anaphylaxis [facility] (5 sources) metFORMIN Drug Allergy Unknown [facility] Other (20 sources) metFORMIN; Translations: [METFORMIN] Drug Allergy 3 Unknown, Unknown Reaction [facility] Repository Comment on above: bottoms out to unde r 40 (20 sources) Metformin And Related Propensity to adverse reactions to drug 4 Other (See Comments) [facility] (20 sources) POISON DEVORAH EXTRACT; Translations: [POISON DEVORAH EXTRACT] Propensity to adverse reactions to drug (disorder) 3 [facility] Repository (1 source) Cephalexin Drug Allergy 4 [facility] Repository (1 source) Citalopram Drug Allergy 4 [facility] Repository (1 source) metFORMIN Drug Allergy 4 [facility] Repository Medications Current Medications Medication Drug Class(es) Dates Sig (Normalized) Sig (Original) [id number] 200 actuat albuterol 0.09 mg/actuat metered dose inhaler (20 sources) beta2-Adrenergic Agonist take 1 puff(s) by inhalation every four hours albuterol HFA (Ventolin HFA) [...] Active ascorbic acid 500 mg oral tablet (20 sources) Vitamin C Start: 05-21-2023 take 1 tablet by mouth twice daily Ascorbic Acid (Vitamin C) (Vitamin C) 500 mg tablet Active 500 MG PO Twice daily May 21, 2023 9:20am Start: 05-20-2023 End: 05-21-2023 take 1 tablet by mouth once daily Ascorbic Acid (Vitamin C) (Vitamin C) 500 mg tablet Discontinued 500 MG PO Daily May 19, 2023 11:00pm May 21, 2023 9:34am Start: 02-24-2023 take 1 tablet by elan th in the morning ascorbic acid (Vitamin C) 500 MG tablet Take 500 mg by mouth in the morning and 500 mg before bedtime. 02/24/2023 Active take 1 tablet by elan th twice daily Vitamin C 500 MG TAKE 1 TABLET BY MOUTH TWICE DAILY Oral for 20 Days Active B Complex Vitamins (vitamin B complex) tablet (2 sources) Start: 04-20-2024 take 1 tablet by mouth once daily B Complex Vitamins (vitamin B complex) tablet Take 1 tablet by mouth Daily 04/20/2024 Active bifidobacterium animalis [id number] unt / lactobacillus acidophilus [id number] unt oral capsule (5 sources) take 1 capsule by mouth once daily probiotic (ALIGN/RISAQUAD) CAPS capsule Take 1 capsule by mouth daily ALIGN Active bifidobacterium infantis 4 mg oral capsule (20 sources) Start: 01-07-2023 take 1 capsule by mouth in the morning Probiotic Product (Align) capsule Take 1 capsule by mouth in the morning. 02/16/2023 Active cetirizine hydrochloride 10 mg oral tablet (9 sources) Histamine-1 Receptor Antagonist take 1 tablet by mouth once daily ZyrTEC Allergy 10 MG 1 tablet Orally Once a day Active cholecalciferol 0.05 mg oral capsule (20 sources) Vitamin D Start: 05-21-2023 take 1 capsule by mouth once daily Cholecalciferol (Vitamin D3) 50 mcg (2,000 unit) capsule Active 2000 UNIT PO Daily May 20, 2023 11:00pm Start: 02-24-2023 take 1 capsule by [facility] in the morning cholecalciferol (Vitamin D-3) 50 MCG (1999 UT) capsule Take 2,000 Units by mouth in the morning. 02/24/2023 Active take 1 capsule by [facility] every twenty-four hours Vitamin D3 50 MCG (2000 UT) 1 capsule Orally Once a day Not-Taking/PRN ciclopirox 7.7 mg/ml topical cream (11 sources) Start: 04-21-2024 ciclopirox (Lo prox) 0.77 % cream Indications: Rash and other nonspecific skin eruption APPLY TO THE AFFECTED AREA(S) TWICE DAILY 90 g 04/21/2024 Active Start: 03-17-2024 ciclopirox (Lo prox) 0.77 % cream Indications: Rash and other nonspecific skin eruption APPLY TO THE AFFECTED AREA(S) TWICE DAILY 90 g 03/17/2024 Active clindamycin 150 mg oral capsule (3 sources) [...] mg cyclobenzaprine hydrochloride 10 mg oral tablet (19 sources) Muscle Relaxant Start: 11-16-2023 take 1 [...] sodium 75 mg delayed release oral tablet (19 sources) Nonsteroidal Anti-inflammatory Drug Start: 11-16-2023 take 1 tablet by mouth twice daily as needed diclofenac (Voltaren) 75 MG EC tablet Take 75 mg by mouth 2 (two) times a day as needed 11/16/2023 Active Diclofenac Sodiu m (VOLTAREN PO) Take by mouth in the morning and at bedtime One every morning and two every night Active docusate sodium 100 mg oral capsule (20 sources) Start: 04-29-2023 End: 10-28-2023 take 1 capsule by mouth three times daily Docusate Sodium 100 mg capsule Active 100 MG PO Three times daily October 28, 2023 8:30am Start: 01-07-2023 take [...] Daily May 21, 2023 12:00am take 1 capsule by mo uth in the morning DULoxetine (Cymbalta) [address] capsule Take 30 mg by mouth in the morning and 30 mg before bedtime. Do not crush or chew.. Active empagliflozin 25 mg oral tablet (20 sources) Sodium-Glucose Cotransporter 2 Inhibitor Start: 05-20-2023 End: 07-06-2024 take 1 tablet by mouth once daily empagliflozin (Jardiance) 25 MG Indications: 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, unspecified whether skilled nursing insulin use ([facility]) Take 1 tablet (25 mg) by mouth Daily 30 tablet 2 04/07/2024 07/06/2024 Active etonogestrel 68 mg drug implant (20 [...] 11:00pm Start: 10-14-2018 take 1 tablet by [facility] twice daily Pepcid 20 mg Tab 20 mg = 1 tab(s), Oral, BID, # 60 tab(s), Refills(s) 0 Start Date: 10/14/18 Status: Ordered take 2 tablets by [facility] once daily famotidine (PEPCID) 20 MG tablet Take 2 tablets by mouth daily Active ferrous sulfate 325 mg oral tablet (17 sources) take 1 tablet by mouth once daily at breakfast ferrous sulfate 325 (65 Fe) MG tablet Take 1 tablet by mouth daily (with breakfast) Active fexofenadine hydrochloride 180 mg oral tablet (20 sources) Histamine-1 Receptor Antagonist Start: 02-25-20 take 1 tablet by mouth in the morning fexofenadine (Ros) 180 MG tablet Take 180 mg by mouth in the morning. 02/24/2023 Active FLUoxetine 60 mg oral tablet (20 sources) Serotonin Reuptake Inhibitor Start: 10-15-19 24 take 1 tablet by mouth once daily Fluoxetine 60 mg tablet Active 60 MG PO Daily October 14, 2023 11:00pm Start: 05-20-2023 End: 10-15-2023 take 1 capsule by mouth once daily Fluoxetine 40 mg capsule Discontinued 40 MG PO Daily May 19, 2023 11:00pm October 15, 2023 8:28am Start: 01-19-2020 take 1 capsule by mo uth once daily FLUoxetine 40 mg Cap 40 mg = 1 cap(s), Oral, Daily, # 30 cap(s), Refills(s) 5, Pharmacy: [id number], 157, cm, 10/13/19 10:52:00 EDT, Height/Length Dosing, 100.7, kg, 10/13/19 10:52:00 EDT, Weight Dosing Start Date: 01/19/20 Status: Ordered take 3 capsules by m outh once daily FLUoxetine (PROZAC) 20 MG capsule Take 3 capsules by mouth daily Active fluticasone propionate 0.05 mg/actuat metered dose nasal spray (20 sources) Corticosteroid take 1 spray(s) nasa l route once daily fluticasone (Flonase) 50 MCG/ACT nasal spray Administer 1 spray into each nostril 1 (one) time each day at the same time Active Flonase PRN Acti ve gabapentin 300 mg oral capsule (20 sources) Anti-epileptic Agent Start: 03-31-2024 gabapenti n (Neurontin) 300 MG capsule Indications: Paresthesias 1 po 2-3 times a day. 90 capsule 2 03/31/2024 Active Start: 08-13-2023 gabapentin (Ne urontin) 300 MG capsule Indications: Paresthesias 1 po [...] / neomycin 3.5 mg/ml / polymyxin b 42395 unt/ml otic solution (1 source) Aminoglycoside Antibacterial, Polymyxin-class Antibacterial, Corticosteroid Start: 10-22-2021 End: 10-29-2021 [id number]-pxzovzxzu isone (CORTISPORIN) [id number] 4 drops into the [...] (20 sources) Mood Stabilizer, Anti-epileptic Agent Start: 01-19-2020 take 1 tablet by mouth once daily Lamotrigine 200 mg tablet Active 200 MG PO Daily May 19, 2023 11:00pm linaclotide 0.29 mg oral capsule (20 sources) Guanylate Cyclase-C Agonist Start: 05-21-2023 take 1 capsule by mouth once daily in the morning Linaclotide (Linzess) 290 mcg capsule Active 290 MCG PO Every morning May 20, 2023 11:00pm 3 ml liraglutide 6 mg/ml pen injector (16 sources) GLP-1 Receptor Agonist Start: 05-21-2023 Liraglutide (Victoza 2-Ramon) 0.6 mg/0.1 mL (18 mg/3 mL) pen injector Active MG SUBCUT May 20, 2023 11:00pm Start: 05-19-2023 End: 04-07-2024 inject 1.8 mg by subcutaneous injection once daily Victoza 18 MG/3ML injection Inject 1.8 mg under the skin Daily 05/19/2023 04/07/2024 Discontinued (Formulary change) lisdexamfetamine dimesylate 70 mg oral capsule (20 sources) Central Nervous System Stimulant Start: 02-27-2023 take 1 capsule by mouth in the morning Vyvanse 70 MG capsule Take 70 mg by mouth in the morning. 02/27/2023 Active lurasidone hydrochloride 120 mg oral tablet (20 sources) Atypical Antipsychotic Start: 10-15-2023 take 1 tablet by mouth once daily Lurasidone 120 mg tablet Active 120 MG PO Daily October 14, 2023 11:00pm Start: 05-20-2023 End: 10-15-2023 take 1 tablet by mouth once daily Lurasidone 80 mg tablet Discontinued 80 MG PO Daily May 19, 2023 11:00pm October 15, 2023 8:30am Start: 01-19-2020 take 1 tablet by elan th once daily at mealtime Latuda 80 mg oral tablet 80 mg = 1 tab(s), Oral, Daily, with food, # 30 tab(s), Refills(s) 5, Pharmacy: [id number], 157, cm, 10/13/19 10:52:00 EDT, Height/Length Dosing, 100.7, kg, 10/13/19 10:52:00 EDT, Weight Dosing Start Date: 01/19/20 Status: Ordered lurasidone (Latu da) 120 MG tablet Take [...] tablet by mouth 3 times daily Active 24 hr metoprolol succinate 25 mg extended release oral tablet (10 sources) beta-Adrenergic Theodore Start: 03-21-2024 take 0.5 tablet by mouth once daily metoprolol succinate XL (Toprol-XL) 25 MG 24 hr tablet TAKE 1/2 (ONE-HALF) OF A TABLET BY MOUTH DAILY 03/21/2024 Active montelukast 10 mg oral tablet (20 sources) Leukotriene Receptor Antagonist Start: 10-14-2018 take 1 tablet by mouth once daily in the evening Singulair 10 mg Tab 10 mg = 1 tab(s), Oral, qPM, # 30 tab(s), Refills(s) 0 Start Date: 10/14/18 Status: Ordered Multiple Vitamin (Tab-A-Karely) tablet (17 sources) Start: 12-26-2022 take 1 tablet by mouth in the morning Multiple Vitamin (Tab-A-Karely) tablet Take 1 tablet by mouth in the morning. 12/26/2022 Active Multivitamin preparation (20 sources) Multivitamin Active Multivitamin With Folic Acid (Daily-Karely (With Folic Acid)) 400 mcg tablet (2 sources) Start: 05-20-2023 Multivitamin With Folic Acid (Daily-Karely (With Folic Acid)) 400 mcg tablet Active TAB PO May 19, 2023 11:00pm Start: 05-20-2023 Multivitamin W ith Folic Acid (Daily-Karely (With Folic Acid)) 400 mcg tablet Active TAB PO May 20, 2023 12:00am mupirocin 0.02 mg/mg topical ointment (18 sources) RNA Synthetase Inhibitor Antibacterial Start: 03-16-2023 End: 03-03-2024 mupirocin (Bactroban) 2 % ointment Indications: Chronic rhinitis apply to left nose TWICE DAILY for 2 (TWO) weeks NEEDED 15 g 2 03/03/2024 Active naproxen 500 mg oral tablet (20 sources) Nonsteroidal Anti-inflammatory Drug Start: 12-02-2022 take 1 tablet by mouth in the morning naproxen (Naprosyn) 500 MG tablet Take 500 mg by mouth in the morning and 500 mg in the evening. Take with meals. 12/02/2022 Active naproxen (NAPROS YN) 500 MG tablet Take 1 tablet by mouth as needed for Pain Active nystatin [id number] unt/ml topical cream (17 sources) Polyene Antifungal Start: 01-20-2023 nystatin (Mycostatin) [...] Peroxisome Proliferator Receptor gamma Agonist, Thiazolidinedione Start: 05-20-2023 End: 04-07-2024 take 1 tablet by mouth once daily pioglitazone (Actos) 30 MG tablet Indications: 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, unspecified whether skilled nursing insulin use ([facility]) Take 1 tablet (30 mg) by mouth Daily 30 tablet 3 04/07/2024 Active plecanatide 3 mg oral tablet (1 source) Start: 02-05-2023 take 1 tablet by mouth every twenty-four hours Trulance 3 MG 1 tablet Orally Once a day for 30 days Jan, Active polyethylene glycol 3350 [id number] mg / potassium chloride 2970 mg / sodium bicarbonate 6740 mg / sodium chloride 5860 mg / sodium sulfate 29813 mg powder for oral solution (2 sources) Osmotic Laxative Start: 03-17-2023 Golytely 236 GM 236 ml Orally 8 ounces every 15 minutes for 1 days PLEASE CHECK ALLERGIES Mar, Active predniSONE 10 mg oral tablet (10 sources) Start: 03-29-2024 take 3 tablets by mouth once daily, then take 2 tablets by mouth once daily, then take 1 tablet by mouth once daily, then take 0.5 tablet by mouth once daily predniSONE (Deltasone) 10 MG tablet TAKE 3 TABLETS BY MOUTH DAILY FOR 4 DAYS then TAKE 2 TABLETS BY MOUTH DAILY FOR 4 DAYS then TAKE 1 TABLET BY MOUTH DAILY FOR 4 DAYS then TAKE 1/2 (ONE-HALF) OF A TABLET BY MOUTH DAILY FOR 4 DAYS 03/29/2024 Active promethazine hydrochloride 25 mg oral tablet (1 source) Phenothiazine Start: 06-13-2019 take 1 tablet by mouth every six hours as needed for nausea promethazine 25 mg Tab 25 mg = 1 tab(s), Oral, q6hr, PRN Nausea, # 20 tab(s), Refills(s) 0, Pharmacy: [id number], 157, cm, 03/10/19 12:21:00 EST, Height/Length Measured, 100.7, kg, 03/10/19 12:21:00 EST, Weight Measured Start Date: 06/13/19 Status: Ordered rizatriptan 10 mg oral tablet (20 sources) Serotonin-1b and Serotonin-1d Receptor Agonist Start: 06-02-2022 take 1 tablet by mouth once rizatriptan (Maxalt) 10 MG tablet Take 10 mg by mouth 1 (one) time if needed 06/02/2022 Active rosuvastatin 10 mg oral capsule (20 [...] mouth daily Active Rosuvastatin Leonardo cium Active SUMAtriptan 100 mg oral tablet (20 sources) Serotonin-1b and Serotonin-1d Receptor Agonist Start: 02-22-2024 take 1 tablet by mouth once daily as needed SUMAtriptan (Imitrex) 100 MG tablet Indications: Migraine with aura and without status migrainosus, not intractable (CMS/HCC) TAKE 1 TABLET BY MOUTH ONCE DAILY NEEDED for FOR MIGRAINE 9 tablet 1 04/20/2024 Active Start: 01-20-2024 End: 02-19-2024 take 1 tablet by mouth once SUMAtriptan (Imitrex) 100 MG tablet Indications: Migraine with aura and without status migrainosus, not intractable (CMS/HCC) Take 1 tablet (100 mg) by mouth 1 (one) time if needed for migraine 9 tablet 01/20/2024 02/19/2024 Active Start: 10-16-2023 SUMAtriptan (I mitrex) 100 MG tablet Indications: Migraine with aura and without status migrainosus, not intractable (CMS/HCC) TAKE 1 TABLET BY MOUTH at the onset OF migraine, may repeat in 2 (TWO) HOURS NEEDED *max OF 2 (TWO) TABLETS per day, twice a week* *MUST LAST 30 DAYS* 9 tablet 2 10/16/2023 Active Start: 05-20-2023 take 1 tablet by elan th twice daily as needed Sumatriptan Succinate 100 mg tablet Active 100 MG PO Twice daily as needed May 19, 2023 11:00pm take 1 tablet by elan th every two hours as needed, then take 1 tablet by mouth twice daily as needed SUMAtriptan Succinate 25 MG 1 tablet at least 2 hours between doses as needed Orally Twice a day Active tamsulosin hydrochloride 0.4 mg oral capsule (12 sources) alpha-Adrenergic Theodore Start: 01-08-2024 take 1 capsule [...] Sleep Active terbinafine 250 mg oral tablet (12 sources) Allylamine Antifungal Start: 01-21-2024 take 1 tablet by mouth once daily terbinafine (LamISIL) 250 MG tablet Take 250 mg by mouth Daily 01/21/2024 Active Tirzepatide (Mounjaro) 2.5 MG/0.5ML solution auto-injector (10 sources) Start: 04-11-2024 End: 05-11-2024 Tirzepatide (Mounjaro) 2.5 MG/0.5ML solution auto-injector Indications: 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, 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 (CMS/HCC) Inject 2.5 mg under the skin every 7 (seven) days 2 mL 3 04/11/2024 05/11/2024 Active Start: 04-07-2024 End: 05-07-2024 Tirzepatide (Mounjaro) 2.5 M G/0.5ML solution auto-injector Indications: 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, unspecified whether skilled nursing insulin use (CMS/HCC) Inject 2.5 mg under the skin every 7 (seven) days 2 mL 3 04/07/2024 05/07/2024 Active topiramate 200 mg oral tablet (17 sources) take 1 tablet by mouth once daily topiramate (TOPAMAX) 200 MG tablet Take 200 mg by mouth daily Active traMADol hydrochloride 50 mg oral tablet (20 sources) Opioid Agonist Start: 01-21-2023 take 1 tablet by mouth every twenty-four hours as needed traMADol (Ultram) 50 MG tablet Take 50 mg by mouth Daily as needed 01/21/2023 Active Ultram Active traZODone hydrochloride 50 mg oral tablet (20 sources) Serotonin Reuptake Inhibitor Start: 05-20-2023 End: 05-21-2023 take 1 tablet by mouth once daily at bedtime Trazodone 50 mg tablet Active 50 MG PO Daily at bedtime May 21, 2023 9:25am Trulance 3 MG (1 source) Start: 02-05-2023 take 1 tablet by mouth once daily Trulance 3 MG 1 tablet Orally Once a day for 30 days Jan, Active Ventolin HFA 90 mcg/inh Aerosol (1 source) Start: 10-14-2018 Ventolin HFA 9 0 mcg/inh Aerosol Refill(s) 0 Start Date: 10/14/18 Status: Ordered Vitamin D (13 sources) Vitamin D Active zonisamide 100 mg oral capsule (17 sources) Anti-epileptic Agent take 1 capsule by mouth once daily zonisamide (ZONEGRAN) 100 MG capsule Take 100 mg by mouth daily Active Completed/Discontinued Medications Medication Drug Class(es) Dates Sig (Normalized) Sig (Original) Dulaglutide (Trulicity) 3 mg/0.5 mL pen injector (2 sources) Start: 05-20-2023 End: 05-21-2023 Dulaglutide (Trulicity) 3 mg/0.5 mL pen injector Discontinued MG SUBCUT May [...] May 21, 2023 11:36am polyethylene glycol 3350 61915 mg powder for oral solution (7 sources) [...] a day for 30 days Jan, Active 0.25 mg, 0.5 mg dose 1.5 ml semaglutide 1.34 mg/ml pen injector (9 sources) Ozempic (0.25 or 0.5 MG/DOSE) 2 MG/1.5ML as directed Subcutaneous Not-Taking 50 ml sodium chloride 9 mg/ml injection (1 source) Start: 4 End: 4 1,000 mL (10.4 mL/kg), IntraVENous, at 983.6 mL/hr, Administer over 61 Minutes, ONCE, On Thu01/13/24 at 1530, For 1 dose, For adult patients weighing > 55 kg (120 lbs.) and less than tiZANidine 4 mg oral tablet (20 sources) Central alpha-2 Adrenergic Agonist Start: 4 End: 5 take 2 tablets by mouth at bedtime tiZANidine (Zanaflex) 4 MG tablet Indications: Migraine with aura and without status migrainosus, not intractable (CMS/HCC) TAKE 2 TABLETS BY MOUTH AT BEDTIME 60 tablet 2 10/16/2023 04/18/2024 Discontinued (Other) Start: 05-21-2023 take 2 tablets by mo uth once daily at bedtime Tizanidine 4 mg tablet Active 8 MG PO Daily at bedtime May 21, 2023 9:24am Start: 05-21-2023 take 8 mg by mouth o nce daily at bedtime Tizanidine Active 8 MG PO Daily at bedtime May 21, 2023 10:24am Start: 05-20-2023 End: 05-21-2023 take 1 tablet by mouth once daily at bedtime Tizanidine 4 mg tablet Discontinued 4 MG PO Daily at bedtime May 19, 2023 11:00pm May 21, 2023 9:34am Start: 10-14-2018 tizanidine 4 m g oral capsule Refills(s) 0 Start Date: 10/14/18 Status: Ordered take 1 tablet by elan th every six hours as needed tiZANidine (ZANAFLEX) 4 MG tablet Take 4 mg by mouth every 6 hours as needed Active take 2 tablets by mo uth every twenty-four hours tiZANidine HCl 4 MG 2 tablet Orally daily Active take 1 tablet by elan th every twelve hours tiZANidine HCl 4 MG 1 tablet Orally TWICE A DAY Active vitamin B12 (20 sources) Vitamin B12 Vitamin B12 Not- Taking/PRN Vitamin B12 Not- Taking Vitamin B12 Acti ve Problems Active Problems Problem Classification Problem Date Documented Da te Episodic/Chronic Administrative/social admission (4 sources) Persons encountering health services in other specified circumstances; Translations: [Patient encounter status] Onset: 07-29-2023 Episodic Anxiety disorders (20 sources) Posttraumatic stress disorder; Translations: [Post-traumatic stress disorder, unspecified] Onset: 06-16-2018 Chronic Asthma (17 sources) Asthma; Translations: [Unspecified asthma, uncomplicated] Onset: [...] Onset: 02-11-2024 Chronic Diabetes mellitus without complication (20 sources) 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; Translations: [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s] Onset: 11-10-2017 03-10-2023 Chronic Disorders of lipid metabolism (15 sources) Hyperlipidemia; Translations: [Hyperlipidemia, unspecified] Onset: 02-11-2024 02-11-2024 Chronic Diverticulosis and diverticulitis (17 sources) Diverticulitis; Translations: [Diverticulitis of intestine, part unspecified, without perforation or abscess without bleeding] Onset: 03-10-2023 03-10-2023 Chronic Gastrointestinal hemorrhage (1 source) Hemorrhage of anus and rectum Episodic Headache; including migraine (2 sources) Tension-type headache; Translations: [Tension-type headache, unspecified, not intractable] 11-30-2023 Chronic Mycoses (2 sources) Onychomycosis of toenails; Translations: [Tinea unguium] 04-18-2024 Episodic Nausea and vomiting (1 source) Nausea 11-26-2018 Episodic Nonspecific chest pain (5 sources) Chest pain, unspecified; Translations: [Chest pain] Onset: 10-05-2023 10-15-2023 Episodic Nutritional deficiencies (15 sources) Vitamin D deficiency; Translations: [Vitamin D deficiency, unspecified] Onset: 02-11-2024 02-11-2024 Chronic Osteoarthritis (17 sources) Osteoarthritis of joint of left ankle and/or foot; Translations: [Primary osteoarthritis, left ankle and foot] Onset: 03-10-2023 03-10-2023 Chronic Other ear and sense organ disorders (1 source) Acute otitis externa; Translations: [Diffuse otitis externa, left ear] Episodic Other endocrine disorders (20 sources) Reactive hypoglycemia; Translations: [Other hypoglycemia] 05-20-2023 Chronic Other endocrine disorders (8 sources) Other hypoglycemia Chronic Other endocrine disorders (4 sources) Disorder of endocrine system; Translations: [Endocrine disorder, unspecified] 04-18-2024 Episodic Other gastrointestinal disorders (2 sources) Irritable bowel [...] Resolved: 10-29-2021 Chronic Other nervous system disorders (9 sources) [...] Chronic Other nutritional; endocrine; and metabolic disorders (6 sources) Body mass index 30+ - obesity; Translations: [Body mass index (BMI) 36.0-36.9, adult] 06-05-2023 Chronic Other nutritional; endocrine; and metabolic disorders (2 sources) Severe obesity; Translations: [Class 2 severe obesity due to excess calories with serious comorbidity and body mass index (BMI) of 39.0 to 39.9 in adult ([facility])] 04-07-2024 Chronic Other nutritional; endocrine; and metabolic disorders (2 sources) Weight increased; Translations: [Abnormal weight gain] 04-07-2024 Episodic Other screening for suspected conditions (not mental disorders or infectious disease) (20 sources) Elevated liver enzymes level; Translations: [Abnormal results of liver function studies] Onset: 02-25-2022 Episodic Other upper respiratory disease (18 sources) Chronic rhinitis; Translations: [Chronic rhinitis] Onset: 03-10-2023 03-10-2023 Chronic Residual codes; unclassified (4 sources) Obstructive sleep apnea (adult) (pediatric); Translations: [OBSTRUCTIVE SLEEP APNEA] Onset: 05-07-2022 Chronic Residual codes; unclassified (5 sources) Obstructive sleep apnea syndrome; Translations: [Obstructive sleep apnea (adult) (pediatric)] 11-30-2023 Chronic Residual codes; unclassified (1 source) Pain, unspecified; Translations: [Pain, unspecified] Onset: 06-03-2023 Episodic Residual codes; unclassified (1 source) Genetic susceptibility to other malignant neoplasm; Translations: [Genetic susceptibility to other malignant neoplasm] Onset: 12-21-2023 Episodic Residual codes; unclassified (2 sources) Other specified health status; Translations: [Other specified conditions influencing health status] 04-28-2024 Episodic Screening and history of mental health and substance abuse codes (1 source) Abnormal developmental screening; Translations: [Encounter for autism screening] Episodic Skin and subcutaneous tissue infections (1 source) Pilonidal cyst; Translations: [Pilonidal cyst without abscess] Episodic Spondylosis; intervertebral disc disorders; other back problems (20 sources) Spondylosis without myelopathy or radiculopathy, lumbosacral region; Translations: [Displacement of cervical intervertebral disc] Onset: 09-21-2017 03-10-2023 Chronic Unclassified (1 source) New Patient Onset: 10-08-2023 Unclassified (1 source) Hemorrhage of anus and rectum; Translations: [Hemorrhage of anus and rectum] Onset: 03-18-2023 Past or Other Problems Problem Classification Problem Date Documented Da te Episodic/Chronic Abdominal pain (2 sources) Unspecified abdominal pain; Translations: [Epigastric pain] Onset: 10-06-2023 Episodic Attention-deficit, conduct, and disruptive behavior disorders (20 sources) Attention deficit hyperactivity disorder; Translations: [Attention-deficit hyperactivity disorder, unspecified type] Onset: 04-27-2024 Resolved: 04-27-2024 05-20-2023 Chronic Biliary tract disease (17 sources) Acute cholecystitis; Translations: [Acute cholecystitis] Onset: 09-15-2016 03-10-2023 Episodic Complications of surgical procedures or medical care (17 sources) Abscess; Translations: [Infection following a procedure, other surgical site, initial encounter] Onset: 09-28-2016 Resolved: 03-10-2023 03-10-2023 Episodic Deficiency and other anemia (17 sources) Anemia; Translations: [Anemia, unspecified] Onset: 03-10-2023 03-10-2023 Episodic E Codes: Fall (2 sources) Unspecified fall due to ice and snow, initial encounter; Translations: [Fall from other slipping, tripping, or stumbling] Onset: 04-20-2023 04-20-2023 Episodic Immunizations and screening for infectious disease (1 source) Encounter for screening for other viral diseases; Translations: [ENC SCREENING FOR OTH VIRAL DZ] Onset: 02-25-2022 Episodic Impulse control disorders, NEC (3 sources) Impulse control disorder; Translations: [Impulse disorder, unspecified] Onset: 04-27-2024 Resolved: 04-27-2024 Chronic Lymphadenitis (17 sources) Axillary lymphadenopathy; Translations: [Localized enlarged lymph nodes] Onset: 05-10-2020 03-10-2023 Episodic Mood disorders (4 sources) Mixed bipolar affective disorder, moderate; Translations: [Bipolar disorder, current episode mixed, moderate] Onset: 04-27-2024 Resolved: 04-27-2024 Chronic Nonmalignant breast conditions (20 sources) Large breast; Translations: [Hypertrophy of breast] Onset: 06-02-2023 Resolved: 02-18-2024 02-18-2024 Episodic Open wounds of extremities (17 sources) Open wound of toe without complication; Translations: [Unspecified open wound of unspecified toe(s) without damage to nail, initial encounter] Onset: 03-10-2023 Resolved: 03-10-2023 03-10-2023 Episodic Other connective tissue disease (1 source) Pain in left foot; Translations: [PAIN IN LEFT FOOT] Onset: 02-01-2022 Episodic Other connective tissue disease (17 sources) Pain in both feet; Translations: [Pain [...] OTHER SERUM ENZYMES] Onset: 02-17-2022 Episodic Other nervous system disorders (20 sources) Circadian rhythm sleep disorder of shift work type; Translations: [Circadian rhythm sleep disorder, shift work type] Onset: 04-27-2024 Resolved: 04-27-2024 05-20-2023 Chronic Other non-traumatic joint disorders (4 sources) Pain in left ankle and joints of left foot; Translations: [PAIN IN LEFT ANKLE] Onset: 01-29-2022 Episodic Other upper respiratory disease (17 sources) Epistaxis; Translations: [Epistaxis] Onset: 03-10-2023 03-10-2023 Episodic Residual codes; unclassified (17 sources) Flushing; Translations: [Flushing] Onset: 03-10-2023 Resolved: 03-10-2023 03-10-2023 Episodic Spondylosis; intervertebral disc disorders; other back problems (20 sources) Backache; Translations: [Neck pain] Onset: 12-02-2022 Resolved: 02-18-2024 03-10-2023 Episodic Sprains and strains (2 sources) Strain of neck muscle; Translations: [Strain of muscle, fascia and tendon at neck level, initial encounter] Onset: 04-20-2023 04-20-2023 Episodic Results Test Name Value Interpretation Reference Range Facility [facility] HEMOGLOBIN A1Con 025 Glucose [Mass/Vol] 123 mg/dL [facility] HbA1c (Bld) [Mass fraction] 5.9 % 4.5 - 6.2 % [facility] Comment on above: ADA RECOMMENDED LIMI T 4.0 - 6.0 ADA THERAPEUTIC TARGET < 7.0 ACTION SUGGESTED > 7.0 [facility] Glucose (Bld) [Mass/Vol]on 0 04-07-2024 Glucose Blood, POC 115 mg/dL [facility] Laboratory - Hematology and Cell countson 04-07-2024 HbA1c (Bld) [Mass fraction] 5.8 % [facility] No Panel Informationon 04-07 Interpretation and review of laboratory results Normal [facility] Strep A Culture Onlyon 03-09 Strep A Culture Only No Group A Beta Streptococcus Isolated 2 Days PERFORMED BY: [place] [address] PATHOLOGIST HOMEOPATHIC DOCTOR DALIA SEARS M.D. Normal [facility] Comment on above: Performed By: #### C USTA #### [address] CBC with Auto Differentialon 01-13-2024 Basophils (Bld) [#/Vol] 0.06 10*3/uL [facility] Basophils/100 WBC (Bld) 0 % 0 - 2 % [facility] Eosinophils (Bld) [#/Vol] 0.10 10*3/uL [facility] Eosinophils/100 WBC (Bld) 1 % 1 - 4 % [facility] Erythrocyte distribution width (RBC) [Ratio] 13.6 % 11.8 - 14.4 % [facility] Hematocrit (Bld) [Volume fraction] 43.3 % 36.3 - 47.1 % [facility] Hemoglobin (Bld) [Mass/Vol] 14.0 g/dL 11.9 - 15.1 g/dL [facility] Immature granulocytes (Bld) [#/Vol] 0.10 10*3/uL [facility] Immature granulocytes/100 WBC (Bld) 1 % High 0 [facility] Interpretation and review of laboratory results Abnormal [facility] Lymphocytes/100 WBC (Bld) 22 % Low 24 - 43 % [facility] Lymphocytes/100 WBC (Bld) 2.98 % [facility] MCH (RBC) [Entitic mass] 28.5 pg 25.2 - 33.5 pg [facility] MCHC (RBC) [Mass/Vol] 32.3 g/dL 28.4 - 34.8 g/dL [facility] MCV (RBC) [Entitic vol] 88.2 fL 82.6 - 102.9 fL [facility] Monocytes/100 WBC (Bld) 8 % 3 - 12 % [facility] Monocytes/100 WBC (Bld) 1.12 % [facility] Neutrophils/100 WBC (Bld) 68 % High 36 - 65 % [facility] Nucleated RBC/100 WBC (Bld) [Ratio] 0.0 % 0.0 per 100 WBC [facility] Platelet mean volume (Bld) [Entitic vol] 10.0 fL 8.1 - 13.5 fL [facility] Platelets (Bld) [#/Vol] 452 10*3/uL [facility] RBC (Bld) [#/Vol] 4.91 10*6/uL 3.95 - 5.11 m/uL [facility] Segmented neutrophils/100 WBC (Bld) 9.08 % High [facility] WBC other (Bld) [#/Vol] 13.4 High [facility] CBC with Diffon 01-13-2024 Abs. Basophil 0.06 k/uL Normal 0.00-0.20 [facility] Comment on above: Performed By: #### C DP, CP #### [address] [place] [address] [employer]: Domenica Velázquez MD Abs.Imm.Granulocyte 0.10 k/uL Normal 0.00-0.30 [facility] Comment on above: Performed By: #### C DP, CP #### [address] [place] [address] [employer]: Domenica Velázquez MD Abs.Neutrophil (Seg) 9.08 k/uL High 1.50-8.10 [facility] Comment on above: Performed By: #### C DP, CP #### [address] [place] [address] [employer]: Domenica Velázquez MD Basophils/100 WBC (Bld) 0 % Normal 0-2 [facility] Comment on above: Performed By: #### C DP, CP #### [address] [place], [place] [address] [employer]: Domenica Velázquez MD Eosinophils (Bld) [#/Vol] 0.10 10*3/uL Normal 0.00-0.44 [facility] Comment on above: Performed By: #### C DP, CP #### [address] [place], [place] [address] [employer]: Domenica Velázquez MD Eosinophils/100 WBC (Bld) 1 % Normal 1-4 [facility] Comment on above: Performed By: #### C DP, CP #### [address] [place] [address] [employer]: Domenica Velázquez MD Erythrocyte distribution width (RBC) [Ratio] 13.6 % Normal 11.8-14.4 [facility] Comment on above: Performed By: #### C DP, CP #### [facility] [address] [place], [place] [id number] [employer]: Domenica Velázquez MD Hematocrit (Bld) [Volume fraction] 43.3 % Normal 36.3-47.1 [facility] Comment on above: Performed By: #### C DP, CP #### [facility] [address] [place], [facility] [employer]: Domenica Velázquez MD Hemoglobin (Bld) [Mass/Vol] 14.0 g/dL Normal 11.9-15.1 [facility] Comment on above: Performed By: #### C DP, CP #### [address] [place], [facility] [employer]: Domenica Velázquez MD Immature granulocytes/100 WBC (Bld) 1 % High 0 [facility] Comment on above: Performed By: #### C DP, CP #### [address] [place], [facility] [employer]: Domenica Velázquez MD Lymphocytes (Bld) [#/Vol] 2.98 10*3/uL Normal 1.10-3.70 [facility] Comment on above: Performed By: #### C DP, CP #### [address] [place], [facility] [employer]: Domenica Velázquez MD Lymphocytes/100 WBC (Bld) 22 % Low 24-43 [facility] Comment on above: Performed By: #### C DP, CP #### [address] [place], [facility] [employer]: Domenica Velázquez MD MCH (RBC) [Entitic mass] 28.5 pg Normal 25.2-33.5 [facility] Comment on above: Performed By: #### C DP, CP #### [address] [place], [facility] [employer]: Domenica Velázquez MD MCHC (RBC) [Mass/Vol] 32.3 g/dL Normal 28.4-34.8 [facility] Comment on above: Performed By: #### C DP, CP #### [facility] [address] [place], [place] [id number] [employer]: Domenica Velázquez MD MCV (RBC) [Entitic vol] 88.2 fL Normal 82.6-102.9 [facility] Comment on above: Performed By: #### C DP, CP #### [address] [place], [place] [id number] [employer]: Domenica Velázquez MD Monocytes (Bld) [#/Vol] 1.12 10*3/uL Normal 0.10-1.20 [facility] Comment on above: Performed By: #### C DP, CP #### [address] [place] [address] [employer]: Domenica Velázquez MD Monocytes/100 WBC (Bld) 8 % Normal 3-12 [facility] Comment on above: Performed By: #### C DP, CP #### [address] [place], [place] [address]83 [employer]: Domenica Velázquez MD Neutrophil (Seg) 68 % High 36-65 [facility] Comment on above: Performed By: #### C DP, CP #### [facility] [address] [place] [address] Dr[place], [place] [id number] [employer]: Domenica Velázquez MD NRBC Automated 0.0 per 100 WBC Normal 0.0 [facility] Comment on above: Performed By: #### C DP, CP #### [address] [place], [place] [id number] [employer]: Domenica Velázquez MD Platelet mean volume (Bld) [Entitic vol] 10.0 fL Normal 8.1-13.5 [facility] Comment on above: Performed By: #### C DP, CP #### [facility] [address] [place], [place] [id number] [employer]: Domenica Velázquez MD Platelets (Bld) [#/Vol] 452 10*3/uL Normal 138-453 [facility] Comment on above: Performed By: #### C DP, CP #### [facility] [address] [place], [place] [id number] [employer]: Domenica Velázquez MD RBC (Bld) [#/Vol] 4.91 10*6/uL Normal 3.95-5.11 [facility] Comment on above: Performed By: #### C DP, CP #### [facility] [address] [place], [place] [id number] [employer]: Domenica Velázquez MD WBC (Bld) [#/Vol] 13.4 10*3/uL High 3.5-11.3 [facility] Comment on above: Performed By: #### C DP, CP #### [facility] [address] [place], [place] [address] [employer]: Domenica Velázquez MD [facility] 01-13-2024 Albumin [Mass/Vol] 4.4 g/dL 3.5 - [...] - 0.90 mg/dL [facility] Emily Zacarias Rate - PINF [facility] S [facility] Comment on above: These results are not [...] ratio] 34 mg/mg High 9 - 20 [facility] Comp Metabolic Profon 2023 Albumin [Mass/Vol] 4.4 g/dL Normal 3.5-5.2 [facility] Comment on above: Performed By: #### C MANUELA, CP #### [facility] [address] [place] [address] [employer]: Domenica Velázquez MD Albumin/Glob Ratio 1.3 Normal 1.0-2.5 [facility] Comment on above: Performed By: #### C MANUELA, CP #### [facility] [address] [place], [place] [id number] [employer]: Domenica Velázquez MD Alkaline Phos 87 U/L Normal 35-104 [facility] Comment on above: Performed By: #### C DP, CP #### [facility] [address] [place], [place] 1272[address] [employer]: Domenica Velázquez MD ALT [Catalytic activity/Vol] 25 U/L Normal 10-35 [facility] Comment on above: Performed By: #### C DP, CP #### [facility] [address] [place], [place] [id number] [employer]: Domenica Velázquez MD Anion gap [Moles/Vol] 11 mmol/L Normal 9-16 [facility] Comment on above: Performed By: #### C DP, CP #### [facility] [address] [place], [place] [id number] [employer]: Domenica Velázquez MD AST [Catalytic activity/Vol] 17 U/L Normal 10-35 [facility] Comment on above: Performed By: #### C DP, CP #### [facility] [address] [place], [place] [address] [employer]: Domenica Velázquez MD Bilirubin [Mass/Vol] mg/dL Normal 0.00-1.20 [facility] Comment on above: Performed By: #### C DP, CP #### [facility] [address] [place], [place] [id number] [employer]: Domenica Velázquez MD BUN/CRE Ratio 34 High 9-20 [facility] Comment on above: Performed By: #### C DP, CP #### [facility] [address] [place], [place] [address] [employer]: Domenica Velázquez MD Calcium [Mass/Vol] 9.9 mg/dL Normal 8.6-10.4 [facility] Comment on above: Performed By: #### C DP, CP #### [facility] [address] [place], [place] [id number] [employer]: Domenica Velázquez MD Chloride [Moles/Vol] 101 mmol/L Normal 98-107 [facility] Comment on above: Performed By: #### C DP, CP #### [facility] [address] [place] [address] [employer]: Domenica Velázquez MD CO2 [Moles/Vol] 25 mmol/L Normal 20-31 [facility] Comment on above: Performed By: #### C DP, CP #### [facility] [address] [place] [address] [employer]: Domenica Velázquez MD Creatinine [Mass/Vol] 0.7 mg/dL Normal 0.50-0.90 [facility] Comment on above: Performed By: #### C DP, CP #### [facility] [address] [place] [address] [employer]: Domenica Velázquez MD GFR/1.73 sq M.predicted among non-blacks MDRD (S/P/Bld) [Vol rate/Area] mL/min/{1.73_m2} Normal >60 [facility] Comment on above: Result Comment: These [...] Performed By: #### C DP, CP #### [facility] [address] [place] [address] [employer]: Domenica Velázquez MD Glucose [Mass/Vol] 112 mg/dL High 74-99 [facility] Comment on above: Performed By: #### C DP, CP #### [facility] [address] [place] [address] [employer]: Domenica Velázquez MD Potassium [Moles/Vol] 4.2 mmol/L Normal 3.7-5.3 [facility] Comment on above: Performed By: #### C DP, CP #### [facility] [address] [place] [address] [employer]: Domenica Velázquez MD Protein [Mass/Vol] 7.8 g/dL Normal 6.6-8.7 [facility] Comment on above: Performed By: #### C DP, CP #### [facility] [address] [place] [address] [employer]: Domenica Velázquez MD Sodium [Moles/Vol] 137 mmol/L Normal 136-145 [facility] Comment on above: Performed By: #### C DP, CP #### [facility] [address] [place], [place] [id number] [employer]: Domenica Velázquez MD Urea nitrogen [Mass/Vol] 24 mg/dL High 6-20 [facility] Comment on above: Performed By: #### C DP, CP #### [facility] [address] [place] [address] [employer]: Domenica Velázquez MD Microscopic Urinalysison Bacteria LM Ql (Urine sed) 1+ Abnormal None [facility] Epithelial cells LM.HPF (Urine sed) [#/Area] 0 TO 2 [facility] Interpretation and review of laboratory results Abnormal [facility] Mucus Ql (Urine sed) TRACE Abnormal None [facility] RBC LM.HPF (Urine sed) [#/Area] 0 TO 2 [facility] WBC LM.HPF (Urine sed) [#/Area] None [facility] TSHon 01-13-2024 TSH Qn 1.57 m[IU]/L [facility] Thyroid Stim. Horm.on 2023 Thyroid Stim. Horm. 1.57 uIU/mL Normal 0.27-4.20 [facility] Comment on above: Performed By: #### T SH #### [facility] [address] [place], [place] [id number] [employer]: Domenica Velázquez MD UA w/Reflex Cultureon 2023 Bilirubin, SemiQt,Ur Negative Normal NEG [facility] Comment on above: Performed By: #### U MICAO, UAX #### [facility] [address] [place], [place] [id number] [employer]: Domenica Velázquez MD Blood, Urine Negative Normal NEG [facility] Comment on above: Performed By: #### U MICAO, UAX #### [facility] [address] [place], [place] [address] [employer]: Domenica Velázquez MD Clarity (U) Clear Normal CLEAR [facility] Comment on above: Performed By: #### U MICAO, UAX #### [facility] [address] [place], [place] [id number] [employer]: Domenica Velázquez MD Color (U) Yellow Normal YEL [facility] Comment on above: Performed By: #### U MICAO, UAX #### [facility] [address] [place], [place] [id number] [employer]: Domenica Velázquez MD Glucose Ql (U) 3+ mg/dL Abnormal NEG [facility] Comment on above: Performed By: #### U MICAO, UAX #### [facility] [address] [place], [place] [id number] [employer]: Domenica Velázquez MD Ketones Ql (U) Negative Normal NEG [facility] Comment on above: Performed By: #### U MICAO, UAX #### [facility] [address] [place], [place] [id number] [employer] Superintendent Division: Domenica Velázquez MD Leukocyte esterase Test strip Ql (U) Negative Normal NEG [facility] Comment on above: Performed By: #### U MICAO, UAX #### [facility] [address] [place] [address] [address] [place], [place] [id number] [employer]ipeline Superintendent Division: Domenica Velázquez MD Nitrite,Ur Negative Normal NEG [facility] Comment on above: Performed By: #### U MICAO, UAX #### [facility] [address] [place] [address] [address]. [place], [place] [id number] [employer]ipeline Superintendent Division: Domenica Velázquez MD PH,Ur 6.0 Normal 5.0-9.0 [facility] Comment on above: Performed By: #### U MICAO, UAX #### [address] [place], [place] 3075783 Pipeline Superintendent Division: Domenica Velázquez MD Protein Ql (U) Negative Normal NEG [facility] Comment on above: Performed By: #### U MICAO, UAX #### [address] [place], [place] 1342283 Pipeline Superintendent Division: Domenica Velázquez MD Spec. [place],Ur >1.030 High 1.010-1.02 0 [facility] Comment on above: Performed By: #### U MICAO, UAX #### [facility] [address] [place] [address] Dr. [place], [place] 5344383 Pipeline Superintendent Division: Domenica Velázquez MD Urobilinogen,Ur Normal Normal 0.0-1.0 [facility] Comment on above: Performed By: #### U MICAO, UAX #### [address] [place] [address] Pipeline Superintendent Division: Domenica Velázquez MD Urinalysis with Reflex to Cu ltureon 01-13-2024 Bilirubin Ql (U) Negative NEGATIVE [facility] Clarity (U) Clear Clear [facility] Color (U) Yellow Yellow [facility] Nitrite Ql (U) Negative NEGATIVE [facility] pH (U) 6.0 [pH] 5.0 - 9.0 [facility] Protein (U) [Mass/Vol] Negative NEGATIVE mg/dL [facility] Specific gravity (U) [Rel density] High 1.010 - 1.020 [facility] Urobilinogen Qn (U) Normal 0.0 - 1. 0 EU/dL [facility] Urinalysis,Microon 4 Bacteria 1+ Abnormal [facility] Comment on above: Performed By: #### U MICAO, UAX #### [facility] [address] [place] [address] Pipeline Superintendent Division: Domenica Velázquez MD Epithelial cells LM Ql (Urine sed) 0 TO 2 Normal 0-25 [facility] Comment on above: Performed By: #### U MICAO, UAX #### [facility] [address] [place] [address] Pipeline Superintendent Division: Domenica Velázquez MD Mucus Strands TRACE Abnormal [facility] Comment on above: Performed By: #### U MICAO, UAX #### [facility] [address] [place] [address] Pipeline Superintendent Division: Domenica Velázquez MD Urine RBC's 0 TO 2 Normal 0-2 [facility] Comment on above: Performed By: #### U MICAO, UAX #### [facility] [address] [place] [address] Pipeline Superintendent Division: Domenica Velázquez MD Urine WBC's None Normal 0-5 [facility] Comment on above: Performed By: #### U DULCE, UAX #### [facility] [address] [place] [address] Pipeline Superintendent Division: Domenica Velázquez MD BASIC METABOLIC PANLon 12-20 Anion gap [Moles/Vol] 10 mmol/L Normal 5-15 [facility] Comment on above: Performed By: #### C BCA, BMP, FEPR, 2276-4 #### [facility] ([id number]) [address], [address] [place] [address] Calcium [Mass/Vol] 8.9 mg/dL Normal 8.5-10.5 [facility] Comment on above: Performed By: #### C BCA, BMP, FEPR, 2276-4 #### [facility] ([id number]) [address], [address] [place] [address] Chloride [Moles/Vol] 106 mmol/L Normal 98-109 [facility] Comment on above: Performed By: #### C BCA, BMP, FEPR, 2276-4 #### [facility] ([id number]) [address], [address] [place] [address] CO2 [Moles/Vol] 22 mmol/L Normal 22-32 [facility] Comment on above: Performed By: #### C BCA, BMP, FEPR, 2276-4 #### [facility] ([id number]) [address], [address] [place] [address] Creatinine [Mass/Vol] 0.70 mg/dL Normal 0.40-1.00 [facility] Comment on above: Result Comment: METH OD TRACEABLE TO IDMS STANDARD Performed By: #### C BCA, BMP, FEPR, 2276-4 #### [facility] ([id number]) [address] [place] [address] eGFR (CKD-EPI) NON-RACE DEPENDENT >90 Normal >59 [facility] Comment on above: Result Comment: Reported eGFR is based on the CKD-EPI 2020 equation that does not use a race coefficient. Performed By: #### C BCA, BMP, FEPR, 2276-4 #### [facility] ([id number]) [address] [address] Glucose [Mass/Vol] 89 mg/dL Normal 65-99 [facility] Comment on above: Performed By: #### C BCA, BMP, FEPR, 6-4 #### [facility] ([id number]) [address] [address] Potassium [Moles/Vol] 4.2 mmol/L Normal 3.5-5.0 [facility] Comment on above: Performed By: #### C BCA, BMP, FEPR, 6-4 #### [facility] ([id number]) [address] [address] Sodium [Moles/Vol] 138 mmol/L Normal 134-146 [facility] Comment on above: Performed By: #### C BCA, BMP, FEPR, 2276-4 #### [facility] ([id number]) [address] [address] Urea nitrogen [Mass/Vol] 18 mg/dL Normal 5-23 [facility] Comment on above: Performed By: #### C BCA, BMP, FEPR, 6-4 #### [facility] ([id number]) [address] [address] CBC AND AUTO DIFFon 10-21-20 24 ABSOLUTE BASOPHIL 0.0 X10E9/L Normal 0.0-0.2 [facility] Comment on above: Performed By: #### C BCA, BMP, FEPR, 6-4 #### [facility] ([id number]) [address], [address] [place] [address] ABSOLUTE NEUTROPHIL 5.7 X10E9/L Normal 1.5-6.6 [facility] Comment on above: Performed By: #### C BCA, BMP, FEPR, 2275-4 #### [facility] ([id number]) [address] [facility] [address] [place] [address] Basophils/100 WBC (Bld) 0.4 % Normal [facility] Comment on above: Performed By: #### C BCA, BMP, FEPR, 2275-4 #### [facility] ([id number]) [address] [facility] [address] [place] [address] Eosinophils (Bld) [#/Vol] 0.1 10*3/uL Normal 0.0-0.4 [facility] Comment on above: Performed By: #### C BCA, BMP, FEPR, 2275- #### [facility] ([id number]) [address] [address] [place] [address] Eosinophils/100 WBC (Bld) 1.2 % Normal [facility] Comment on above: Performed By: #### C BCA, BMP, FEPR, 2275-4 #### [facility] ([id number]) [address] [address] [place] [address] Erythrocyte distribution width (RBC) [Ratio] 14.4 % Normal 11.5-15.0 [facility] Comment on above: Performed By: #### C BCA, BMP, FEPR, 2275-4 #### [facility] ([id number]) [address] [address] [place] [address] Hematocrit (Bld) [Volume fraction] 37.4 % Normal 35-47 [facility] Comment on above: Performed By: #### C BCA, BMP, FEPR, 2275-4 #### [facility] ([id number]) [address], [address] [place] [address] Hemoglobin (Bld) [Mass/Vol] 12.4 g/dL Normal 11.7-15.5 [facility] Comment on above: Performed By: #### C BCA, BMP, FEPR, 2275-4 #### [facility] ([id number]) [address] [facility] [address] [place] [address] Lymphocytes (Bld) [#/Vol] 2.4 10*3/uL Normal 1.0-3.5 [facility] Comment on above: Performed By: #### C BCA, BMP, FEPR, 2275- #### [facility] ([id number]) [address] [facility] [address] [place] [address] Lymphocytes/100 WBC (Bld) 28.1 % Normal [facility] Comment on above: Performed By: #### C BCA, BMP, FEPR, 2275-06 #### [facility] ([id number]) [address] [facility] [address] [place] [address] MCH (RBC) [Entitic mass] 28.8 pg Normal 27-34 [facility] Comment on above: Performed By: #### C BCA, BMP, FEPR, 2275-4 #### [facility] ([id number]) [address] [facility] [address] [place] [address] MCHC (RBC) [Mass/Vol] 33.1 g/dL Normal 32-36 [facility] Comment on above: Performed By: #### C BCA, BMP, FEPR, 2275-4 #### [facility] ([id number]) [address] [address] [place] [address] MCV (RBC) [Entitic vol] 87 fL Normal 80-100 [facility] Comment on above: Performed By: #### C BCA, BMP, FEPR, 2275-4 #### [facility] ([id number]) [address], [address] [place] [address] Monocytes (Bld) [#/Vol] 0.3 10*3/uL Normal 0-0.9 [facility] Comment on above: Performed By: #### C BCA, BMP, FEPR, 6-4 #### [facility] ([id number]) [address] [facility] [address] [place] [address] Monocytes/100 WBC (Bld) 3.0 % Normal [facility] Comment on above: Performed By: #### C BCA, BMP, FEPR, 2275-4 #### [facility] ([id number]) [address] [facility] [address] [place] [address] Neutrophils/100 WBC (Bld) 67.3 % Normal [facility] Comment on above: Performed By: #### C BCA, BMP, FEPR, 2275- #### [facility] ([id number]) [address], [address] [place] [address] Platelet mean volume (Bld) [Entitic vol] 8.8 fL Normal 7-12 [facility] Comment on above: Performed By: #### C BCA, BMP, FEPR, 2275- #### [facility] ([id number]) [address] [address] [place] [address] Platelets (Bld) [#/Vol] 325 10*3/uL Normal 150-450 [facility] Comment on above: Performed By: #### C BCA, BMP, FEPR, 6-4 #### [facility] ([id number]) [address] [address] [place] [address] RBC COUNT 4.31 X10E12/L Normal 3.80-5.20 [facility] Comment on above: Performed By: #### C BCA, BMP, FEPR, 6-4 #### [facility] ([id number]) [address] [facility] [address] [place] [address] WBC (Bld) [#/Vol] 8.4 10*3/uL Normal 4.0-11.0 [facility] Comment on above: Performed By: #### C BCA, BMP, FEPR, 2276-4 #### [facility] ([id number]) [address] [address] FERRITINon 12-21-2023 Ferritin [Mass/Vol] 195 ng/mL Normal 11-307 [facility] Comment on above: Performed By: #### C BCA, CMP, 34620-1, TSHR #### [facility] ([id number]) [address] [address] IRON PROFILEon 12-21-2023 Iron [Mass/Vol] 53 ug/dL Normal 50-170 [facility] Comment on above: Performed By: #### C BCA, BMP, FEPR, 2276-4 #### [facility] ([id number]) [address] [address] IRON BINDING 374 ug/dL Normal 250-425 [facility] Comment on above: Performed By: #### C BCA, BMP, FEPR, 2276-4 #### [facility] ([id number]) [address] [address] IRON SATURATION 14 % SATURATION Low 15-50 [facility] Comment on above: Performed By: #### C BCA, BMP, FEPR, 2276-4 #### [facility] ([id number]) [address] [address] [address] ABDOMEN PELVIS W IV CONTR Dar [...] significant stool or gas noted. Evidence of [id number] diverticulosis of proximal sigmoid colon and descending [...] Nicole MD 10/07/23 Final result Normal [facility] Comp Metabolic Profon 2023 Albumin [Mass/Vol] 4.1 g/dL Normal 3.5-5.2 [facility] Comment on above: Performed By: #### C DP, TROPI, CP, LIP ####[address] , [place] [id number])[phone] Director: Domenica Velázquez MD Albumin/Glob Ratio 1.4 Normal 1.0-2.5 [facility] Comment on above: Performed By: #### C DP, TROPI, CP, LIP ####[address] [place], [place] [id number])[phone] Director: Domenica Velázquez MD Alkaline Phos 85 U/L Normal 35-104 [facility] Comment on above: Performed By: #### C DP, TROPI, CP, LIP ####[address] [place] [address] Lab Director: Domenica Velázquez MD ALT [Catalytic activity/Vol] 12 U/L Normal 5-33 [facility] Comment on above: Performed By: #### C DP, TROPI, CP, LIP ####[address] [place], [place] [id number])[phone] Director: oDmenica Velázquez MD Anion gap [Moles/Vol] 11 mmol/L Normal 9-17 [facility] Comment on above: Performed By: #### C DP, TROPI, CP, LIP ####[address] , [place] 3873783 Lab Director: Domenica Velázquez MD AST [Catalytic activity/Vol] 14 U/L Normal <32 [facility] Comment on above: Performed By: #### C DP, TROPI, CP, LIP ####[address] , [place] 4720083 Lab Director: Domenica Velázquez MD Bilirubin [Mass/Vol] 0.2 mg/dL Low 0.3-1.2 [facility] Comment on above: Performed By: #### C DP, TROPI, CP, LIP ####[address] , [place] 1140683 Lab Director: Domenica Velázquez MD BUN/CRE Ratio 30 High 9-20 [facility] Comment on above: Performed By: #### C DP, TROPI, CP, LIP ####[address] , [place] 8469083 Lab Director: Domenica Velázquez MD Calcium [Mass/Vol] 8.8 mg/dL Normal 8.6-10.4 [facility] Comment on above: Performed By: #### C DP, TROPI, CP, LIP ####[address] , [place] 6240383 Lab Director: Domenica Velázquez MD Chloride [Moles/Vol] 103 mmol/L Normal 98-107 [facility] Comment on above: Performed By: #### C DP, TROPI, CP, LIP ####[address] , [place] 2069983 Lab Director: Domenica Velázquez MD CO2 [Moles/Vol] 25 mmol/L Normal 20-31 [facility] Comment on above: Performed By: #### C DP, TROPI, CP, LIP ####[facility] [place] , [place] 9517283 Lab Director: Domenica Velázquez MD Creatinine [Mass/Vol] 0.6 mg/dL Normal 0.5-0.9 [facility] Comment on above: Performed By: #### C DP, TROPI, CP, LIP ####[facility] [place] , [place] 4716483 Lab Director: Domenica Velázquez MD GFR/1.73 sq M.predicted among non-blacks MDRD (S/P/Bld) [Vol rate/Area] mL/min/{1.73_m2} Normal >60 [facility] Comment on above: Result Comment: These [...] By: #### C DP, TROPI, CP, LIP ####[address] , [place] 3073283 Lab Director: Domenica Velázquez MD Glucose [Mass/Vol] 92 mg/dL Normal 70-99 [facility] Comment on above: Performed By: #### C DP, TROPI, CP, LIP ####[facility] [place] , [place] 3504883 Lab Director: Domenica Velázquez MD Potassium [Moles/Vol] 3.6 mmol/L Low 3.7-5.3 [facility] Comment on above: Performed By: #### C DP, TROPI, CP, LIP ####[facility] [place] [place] , [place] 5577683 Lab Director: Domenica Velázquez MD Protein [Mass/Vol] 7.0 g/dL Normal 6.4-8.3 [facility] Comment on above: Performed By: #### C DP, TROPI, CP, LIP ####[facility] [place] [place] , [place] 5232583 Lab Director: Domenica Velázquez MD Sodium [Moles/Vol] 139 mmol/L Normal 135-144 [facility] Comment on above: Performed By: #### C DP, TROPI, CP, LIP ####[facility] [place] [address] Lab Director: Domenica Velázquez MD Urea nitrogen [Mass/Vol] 18 mg/dL Normal 6-20 [facility] Comment on above: Performed By: #### C DP, TROPI, CP, LIP ####[address] [place] [address] Lab Director: Domenica Velázquez MD Lipaseon 10-07-2023 Lipase [Catalytic activity/Vol] 28 U/L Normal 13-60 [facility] Comment on above: Performed By: #### C DP, TROPI, CP, LIP ####[address] , [place] 5392083 Lab Director: Domenica Velázquez MD Troponinon 10-07-2023 Troponin, High Sens <6 Normal 0-14 [facility] Comment on above: Result Comment: High Sensitivity Troponin values cannot be compared with other Troponin methodologies. Performed By: #### C DP, TROPI, CP, LIP ####[address] , [place] 2254883 Lab Director: Domenica Velázquez MD CBC with Diffon 10-06-2023 Abs. Basophil 0.03 k/uL Normal 0.00-0.20 [facility] Comment on above: Performed By: #### C DP, TROPI, CP, LIP ####[address] [place], [place] [address])[phone] Director: Domenica Velázquez MD Abs.Imm.Granulocyte 0.03 k/uL Normal 0.00-0.30 [facility] Comment on above: Performed By: #### C DP, TROPI, CP, LIP ####[address] [place] [address] Lab Director: Domenica Velázquez MD Abs.Neutrophil (Seg) 6.50 k/uL Normal 1.50-8.10 [facility] Comment on above: Performed By: #### C DP, TROPI, CP, LIP ####[address] [place], [place] [address])[phone] Director: Domenica Velázquez MD Basophils/100 WBC (Bld) 0 % Normal 0-2 [facility] Comment on above: Performed By: #### C DP, TROPI, CP, LIP ####[address] [place], [place] [address])[phone] Director: Domenica Velázquez MD Eosinophils (Bld) [#/Vol] 0.08 10*3/uL Normal 0.00-0.44 [facility] Comment on above: Performed By: #### C DP, TROPI, CP, LIP ####[address] [place], [place] [address])[phone] Director: Domenica Velázquez MD Eosinophils/100 WBC (Bld) 1 % Normal 1-4 [facility] Comment on above: Performed By: #### C DP, TROPI, CP, LIP ####[address] [place], [place] [address])[phone] Director: Domenica Velázquez MD Erythrocyte distribution width (RBC) [Ratio] 13.5 % Normal 11.8-14.4 [facility] Comment on above: Performed By: #### C DP, TROPI, CP, LIP ####[address] [place] [address] [facility] Director: Domenica Velázquez MD Hematocrit (Bld) [Volume fraction] 40.1 % Normal 36.3-47.1 [facility] Comment on above: Performed By: #### C DP, TROPI, CP, LIP ####[address] [place], [place] 5223383 Lab Director: Domenica Velázquez MD Hemoglobin (Bld) [Mass/Vol] 13.4 g/dL Normal 11.9-15.1 [facility] Comment on above: Performed By: #### C DP, TROPI, CP, LIP ####[address] [place] 1624385([facility])[phone] Director: Domenica Velázquez MD Immature granulocytes/100 WBC (Bld) 0 % Normal 0 [facility] Comment on above: Performed By: #### C DP, TROPI, CP, LIP ####[address] [place] 1624323([facility])[phone] Director: Domenica Velázquez MD Lymphocytes (Bld) [#/Vol] 2.41 10*3/uL Normal 1.10-3.70 [facility] Comment on above: Performed By: #### C DP, TROPI, CP, LIP ####[address] [place] 1624[address] Lab Director: Domenica Velázquez MD Lymphocytes/100 WBC (Bld) 25 % Normal 24-43 [facility] Comment on above: Performed By: #### C DP, TROPI, CP, LIP ####[address] , [facility]83[facility])[phone] Director: Domenica Velázquez MD MCH (RBC) [Entitic mass] 28.6 pg Normal 25.2-33.5 [facility] Comment on above: Performed By: #### C DP, TROPI, CP, LIP ####[address] [place] [phone] Director: Domenica Velázquez MD MCHC (RBC) [Mass/Vol] 33.4 g/dL Normal 28.4-34.8 [facility] Comment on above: Performed By: #### C DP, TROPI, CP, LIP ####[address] , [place] [phone] Director: Domenica Velázquez MD MCV (RBC) [Entitic vol] 85.7 fL Normal 82.6-102.9 [facility] Comment on above: Performed By: #### C DP, TROPI, CP, LIP ####[address] , [facility]83[facility])[phone] Director: Domenica Velázquez MD Monocytes (Bld) [#/Vol] 0.69 10*3/uL Normal 0.10-1.20 [facility] Comment on above: Performed By: #### C DP, TROPI, CP, LIP ####[address] , [facility]83[facility])[phone] Director: Domenica Velázquez MD Monocytes/100 WBC (Bld) 7 % Normal 3-12 [facility] Comment on above: Performed By: #### C DP, TROPI, CP, LIP ####[address] , [place] [address])[phone] Director: Domenica Velázquez MD Neutrophil (Seg) 67 % High 36-65 [facility] Comment on above: Performed By: #### C DP, TROPI, CP, LIP ####[address] , [place] [address])[phone] Director: Domenica Velázquez MD NRBC Automated 0.0 per 100 WBC Normal 0.0 [facility] Comment on above: Performed By: #### C DP, TROPI, CP, LIP ####[address] , [facility]83[facility])[phone] Director: Domenica Velázquez MD Platelet mean volume (Bld) [Entitic vol] 10.5 fL Normal 8.1-13.5 [facility] Comment on above: Performed By: #### C DP, TROPI, CP, LIP ####[facility] , [facility]83[facility])[phone] Director: Domenica Velázquez MD Platelets (Bld) [#/Vol] 292 10*3/uL Normal 138-453 [facility] Comment on above: Performed By: #### C DP, TROPI, CP, LIP ####[address] , [place] [address])[phone] Director: Domenica Velázquez MD RBC (Bld) [#/Vol] 4.68 10*6/uL Normal 3.95-5.11 [facility] Comment on above: Performed By: #### C DP, TROPI, CP, LIP ####[address] , [facility]83[facility])[phone] Director: Domenica Velázquez MD WBC (Bld) [#/Vol] 9.7 10*3/uL Normal 3.5-11.3 [facility] Comment on above: Performed By: #### C DP, TROPI, CP, LIP ####[address] , [place] [address])[phone] Director: Domenica Velázquez MD Basic Metabolic Profon 10-04 Anion gap [Moles/Vol] 10 mmol/L Normal 9-17 [facility] Comment on above: Performed By: #### D BASIA, BMP, CDP, TROPI #### [address] [place], [place] [address] [employer] Superintendent Division: Domenica Velázquez MD BUN/CRE Ratio 23 High 9-20 [facility] Comment on above: Performed By: #### D BASIA, BMP, CDP, TROPI #### [facility] [address] [place] [address] [employer] Superintendent Division: Domenica Velázquez MD Calcium [Mass/Vol] 8.9 mg/dL Normal 8.6-10.4 [facility] Comment on above: Performed By: #### D BASIA, BMP, CDP, TROPI #### [facility] [address] [place] [address] [employer] Superintendent Division: Domenica Velázquez MD Chloride [Moles/Vol] 105 mmol/L Normal 98-107 [facility] Comment on above: Performed By: #### D BASIA, BMP, CDP, TROPI #### [facility] [address] [place] [address] [employer] Superintendent Division: Domenica Velázquez MD CO2 [Moles/Vol] 26 mmol/L Normal 20-31 [facility] Comment on above: Performed By: #### D BASIA, BMP, CDP, TROPI #### [facility] [address] [place] [address] [employer] Superintendent Division: Domenica Velázquez MD Creatinine [Mass/Vol] 0.6 mg/dL Normal 0.5-0.9 [facility] Comment on above: Performed By: #### D BASIA, BMP, CDP, TROPI #### [facility] [address] [place] [address] [employer] Superintendent Division: Domenica Velázquez MD GFR/1.73 sq M.predicted among non-blacks MDRD (S/P/Bld) [Vol rate/Area] mL/min/{1.73_m2} Normal >60 [facility] Comment on above: Result Comment: These [...] #### D BASIA, BMP, CDP, TROPI #### [facility] [address] [place], [place] 150[address]83 [employer] Division: Domenica Velázquez MD Glucose [Mass/Vol] 96 mg/dL Normal 70-99 [facility] Comment on above: Performed By: #### D BASIA, BMP, CDP, TROPI #### [facility] [address] [place], [place] 69[address]83 [employer] Division: Domenica Velázquez MD Potassium [Moles/Vol] 3.8 mmol/L Normal 3.7-5.3 [facility] Comment on above: Performed By: #### D BASIA, BMP, CDP, TROPI #### [facility] [address] [place] [address] [place] [place], [place] 9669783 [employer] Division: Domenica Velázquez MD Sodium [Moles/Vol] 141 mmol/L Normal 135-144 [facility] Comment on above: Performed By: #### D BASIA, BMP, CDP, TROPI #### [address] [place], [place] 3772183 [employer] Division: Domenica Velázquez MD Urea nitrogen [Mass/Vol] 14 mg/dL Normal 6-20 [facility] Comment on above: Performed By: #### D BASIA, BMP, CDP, TROPI #### [facility] [address] [place] [address] [address] [place], [place] [id number] [employer] Division: Domenica Velázquez MD CBC with Diffon 10-05-2023 Abs. Basophil <0.03 Normal 0.00-0.20 [facility] Comment on above: Performed By: #### D BASIA, BMP, CDP, TROPI #### [facility] [address] [place], [place] 2476583 [employer] Superintendent Division: Domenica Velázquez MD Abs.Imm.Granulocyte 0.03 k/uL Normal 0.00-0.30 [facility] Comment on above: Performed By: #### D BASIA, BMP, CDP, TROPI #### [facility] [address] [place] [address] [employer] Superintendent Division: Domenica Velázquez MD Abs.Neutrophil (Seg) 5.10 k/uL Normal 1.50-8.10 [facility] Comment on above: Performed By: #### D BASIA, BMP, CDP, TROPI #### [facility] [address] [place] [address] [employer] Superintendent Division: Domenica Velázquez MD Basophils/100 WBC (Bld) 0 % Normal 0-2 [facility] Comment on above: Performed By: #### D BASIA, BMP, CDP, TROPI #### [address] [place] [address] [employer] Superintendent Division: Domenica Velázquez MD Eosinophils (Bld) [#/Vol] 0.11 10*3/uL Normal 0.00-0.44 [facility] Comment on above: Performed By: #### D BASIA, BMP, CDP, TROPI #### [address] [place] [address]24383 [employer] Superintendent Division: Domenica Velázquez MD Eosinophils/100 WBC (Bld) 1 % Normal 1-4 [facility] Comment on above: Performed By: #### D BASIA, BMP, CDP, TROPI #### [address] [place], [place] [address] [employer] Superintendent Division: Domenica Velázquez MD Erythrocyte distribution width (RBC) [Ratio] 13.5 % Normal 11.8-14.4 [facility] Comment on above: Performed By: #### D BASIA, BMP, CDP, TROPI #### [facility] [address] [place] [address] [employer] Superintendent Division: Domenica Velázquez MD Hematocrit (Bld) [Volume fraction] 42.6 % Normal 36.3-47.1 [facility] Comment on above: Performed By: #### D BASIA, BMP, CDP, TROPI #### [facility] [address] [place] [address] [place] [place], [place] 7568483 [employer] Superintendent Division: Domenica Velázquez MD Hemoglobin (Bld) [Mass/Vol] 14.1 g/dL Normal 11.9-15.1 [facility] Comment on above: Performed By: #### D BASIA, BMP, CDP, TROPI #### [address] [place], [place] 6933583 [employer] Superintendent Division: Domenica Velázquez MD Immature granulocytes/100 WBC (Bld) 0 % Normal 0 [facility] Comment on above: Performed By: #### D BASIA, BMP, CDP, TROPI #### [address] [place], [place] 1146783 [employer] Superintendent Division: Domenica Velázquez MD Lymphocytes (Bld) [#/Vol] 2.42 10*3/uL Normal 1.10-3.70 [facility] Comment on above: Performed By: #### D BASIA, BMP, CDP, TROPI #### [address] [place], [place] 8936983 [employer] Superintendent Division: Domenica Velázquez MD Lymphocytes/100 WBC (Bld) 30 % Normal 24-43 [facility] Comment on above: Performed By: #### D BASIA, BMP, CDP, TROPI #### [address] [place], [place] 1675783 [employer] Superintendent Division: Domenica Velázquez MD MCH (RBC) [Entitic mass] 28.8 pg Normal 25.2-33.5 [facility] Comment on above: Performed By: #### D BASIA, BMP, CDP, TROPI #### [address] [place], [place] 3680083 [employer] Superintendent Division: Domenica Velázquez MD MCHC (RBC) [Mass/Vol] 33.1 g/dL Normal 28.4-34.8 [facility] Comment on above: Performed By: #### D BASIA, BMP, CDP, TROPI #### [address] [place], [place] 8464083 [employer] Superintendent Division: Domenica Velázquez MD MCV (RBC) [Entitic vol] 87.1 fL Normal 82.6-102.9 [facility] Comment on above: Performed By: #### D BASIA, BMP, CDP, TROPI #### [address] [place], [place] 4666583 [employer] Superintendent Division: Domenica Velázquez MD Monocytes (Bld) [#/Vol] 0.53 10*3/uL Normal 0.10-1.20 [facility] Comment on above: Performed By: #### D BASIA, BMP, CDP, TROPI #### [address] [place], [facility] Pipeline Superintendent Division: Domenica Velázquez MD Monocytes/100 WBC (Bld) 7 % Normal 3-12 [facility] Comment on above: Performed By: #### D BASIA, BMP, CDP, TROPI #### [address] [place], [place] 7935283 [employer] Superintendent Division: Domenica Velázquez MD Neutrophil (Seg) 62 % Normal 36-65 [facility] Comment on above: Performed By: #### D BASIA, BMP, CDP, TROPI #### [address] [place] [address] [employer]ipeline Superintendent Division: Domenica Velázquez MD NRBC Automated 0.0 per 100 WBC Normal 0.0 [facility] Comment on above: Performed By: #### D BASIA, BMP, CDP, TROPI #### [address] [place] [address] [employer]ipeline Superintendent Division: Domenica Velázquez MD Platelet mean volume (Bld) [Entitic vol] 10.9 fL Normal 8.1-13.5 [facility] Comment on above: Performed By: #### D BASIA, BMP, CDP, TROPI #### [facility] [address] [place] [address] [employer]ipeline Superintendent Division: Domenica Velázquez MD Platelets (Bld) [#/Vol] 296 10*3/uL Normal 138-453 [facility] Comment on above: Performed By: #### D BASIA, BMP, CDP, TROPI #### [facility] [address] [place] [address] [employer] Superintendent Division: Domenica Velázquez MD RBC (Bld) [#/Vol] 4.89 10*6/uL Normal 3.95-5.11 [facility] Comment on above: Performed By: #### D BASIA, BMP, CDP, TROPI #### [facility] [address] [place] [address] [employer]ipeline Superintendent Division: Domenica Velázquez MD WBC (Bld) [#/Vol] 8.2 10*3/uL Normal 3.5-11.3 [facility] Comment on above: Performed By: #### D BASIA, BMP, CDP, TROPI #### [facility] [address] [place] [address] [employer]ipeline Superintendent Division: Domenica Velázquez MD CT CHEST PULMONARY EMBOLISM [...] Marcelino MD 10/05/23 Final result Normal [facility] D-Dimer Teston 10-05-2023 D-Dimer Test 0.30 ug/mL FEU Normal 0.00-0.59 [facility] Comment on above: Result Comment: When combined [...] By: #### D BASIA, BMP, CDP, TROPI ####[facility] , [place] 7537083 Lab Director: Domenica Velázquez MD Liver Profileon 10-05-2023 Albumin [Mass/Vol] 4.4 g/dL Normal 3.5-5.2 [facility] Comment on above: Performed By: #### L IVP ####[address] , [place] 1054583 Lab Director: Domenica Velázquez MD Albumin/Glob Ratio 1.4 Normal 1.0-2.5 [facility] Comment on above: Performed By: #### L IVP ####[address] , [place] 9428283 Lab Director: Domenica Velázquez MD Alkaline Phos 99 U/L Normal 35-104 [facility] Comment on above: Performed By: #### L IVP ####[address] , [place] 8622[address] Lab Director: Domenica Velázquez MD ALT [Catalytic activity/Vol] 13 U/L Normal 5-33 [facility] Comment on above: Performed By: #### L IVP ####[address] , [place] 8509183 Lab Director: Domenica Velázquez MD AST [Catalytic activity/Vol] 16 U/L Normal <32 [facility] Comment on above: Performed By: #### L IVP ####[address] , [place] 2171883 Lab Director: Domenica Velázquez MD Bilirubin [Mass/Vol] 0.2 mg/dL Low 0.3-1.2 [facility] Comment on above: Performed By: #### L IVP ####[address] , [place] 2518083 Lab Director: Domenica Velázquez MD Bilirubin, Indirect Can not be calculated Normal 0.0-1 .0 [facility] Comment on above: Performed By: #### L IVP ####[address] [place] [address] [facility] Director: Domenica Velázquez MD Bilirubin.indirect [Mass/Vol] mg/dL Normal <0.3 [facility] Comment on above: Performed By: #### L IVP ####[address] [place] [address] [facility] Director: Domenica Velázquez MD Protein [Mass/Vol] 7.5 g/dL Normal 6.4-8.3 [facility] Comment on above: Performed By: #### L IVP ####[address] [place] [address] [facility] Director: Domenica Velázquez MD Troponinon 10-05-2023 Troponin, High Sens <6 Normal 0-14 [facility] Comment on above: Result Comment: High Sensitivity Troponin values cannot be compared with other Troponin methodologies. Performed By: #### T ROPI ####[address] [place] [address] [facility] Director: Domenica Velázquez MD Troponin, High Sens <6 Normal 0-14 [facility] Comment on above: Result Comment: High Sensitivity Troponin values cannot be compared with other Troponin methodologies. Performed By: #### D BASIA, BMP, CDP, TROPI #### [address] [place], [facility] [employer] Superintendent Division: Domenica Velázquez MD XR CHEST PORTABLEon 10-05-19 [...] Lock MD 10/05/23 Final result Normal [facility] CT CERVICAL SPINE WO CONTRAS Ton [...] Montoya MD 04/20/23 Final result Normal [facility] CT Cervical spine WO contras ton 04-20-2023 Radiology Study observation (narrative) [facility]AST[facility] 2023 CT [...] Montoya MD 04/20/23 Final result Normal [facility] CT Head WO contraston 2023 Radiology Study observation (narrative) [facility] No Panel Informationon 04-[address] abnormal ity identified in the brain. No acute osseous abnormality identified in the cervical spine. [facility] EXAMINATION: CT OF THE CERVICAL [...] There is no prevertebral soft tissue swelling. [facility] Andi Montoya MD - 04/20/2023 [...] osseous abnormality identified in the cervical spine. [facility] No Panel InformationOrdered By: Andi Montoya on 04-20-2023 [facility] [employer] Work Phone: Glucose Glucometer (BldC) [M ass/Vol]on 03-27-2023 Glucose [Mass/Vol] 151 mg/dL High 65-99 [facility] Glucose Poct Glucometerson 0 03-18-2023 Commemt1 Glu2: Cleaned Meter Normal [facility] Comment on above: Result Comment: PERF ORMED BY: [place] [address] PATHOLOGIST HOMEOPATHIC DOCTOR SHA VALERA M.D. Performed By: #### G LULS #### Point of Care testing , Glucose [Mass/Vol] 87 mg/dL Normal [facility] Comment on above: Result Comment: [facility] Glucose Reference Range is dependent on time and content of last meal. Glucose of more than 200 mg/dL in a nonstressed, ambulatory subject supports the diagnosis of Diabetes Mellitus. Performed By: #### G LULS #### Point of Care testing , HCG,Urineon 03-18-2023 Beta HCG ( test) Ql (U) Negative Normal [facility] Comment on above: Result Comment: PERF ORMED BY: [place] [address] PATHOLOGIST HOMEOPATHIC DOCTOR SHA VALERA M.D. Performed By: #### U HCG #### [address] CBC AND AUTO DIFFon 03-16-19 24 ABSOLUTE BASOPHIL 0.0 X10E9/L Normal 0.0-0.2 [facility] Comment on above: Performed By: #### C JAHAIRA BURGESS, 64848-1, TSHR #### [facility] ([id number]) [address] [place] [address] ABSOLUTE NEUTROPHIL 7.7 X10E9/L High 1.5-6.6 [facility] Comment on above: Performed By: #### C JAHAIRA BURGESS, 34285-8, TSHR #### [facility] ([id number]) [address] [place] [address] Basophils/100 WBC (Bld) 0.3 % Normal [facility] Comment on above: Performed By: #### Terrell BURGESS CMP, 53526-4, TSHR #### [facility] ([id number]) [address] [address] [place] [address] Eosinophils (Bld) [#/Vol] 0.1 10*3/uL Normal 0.0-0.4 [facility] Comment on above: Performed By: #### Terrell BURGESS CMP, 93316-6, TSHR #### [facility] ([id number]) [address] [address] [place] [address] Eosinophils/100 WBC (Bld) 1.1 % Normal [facility] Comment on above: Performed By: #### Terrell BURGESS CMP, 63654-0, TSHR #### [facility] ([id number]) [address] [address] [place] [address] Erythrocyte distribution width (RBC) [Ratio] 14.6 % Normal 11.5-15.0 [facility] Comment on above: Performed By: #### Terrell BURGESS CMP, 91734-7, TSHR #### [facility] ([id number]) [address] [facility] [address] [place] [address] Hematocrit (Bld) [Volume fraction] 45.7 % Normal 35-47 [facility] Comment on above: Performed By: #### Terrell BURGESS CMP, 95565-3, TSHR #### [facility] ([id number]) [address] [address] [place] [address] Hemoglobin (Bld) [Mass/Vol] 15.0 g/dL Normal 11.7-15.5 [facility] Comment on above: Performed By: #### Terrell BURGESS CMP, 16510-0, TSHR #### [facility] ([id number]) [address] [address] [place] [address] Lymphocytes (Bld) [#/Vol] 2.4 10*3/uL Normal 1.0-3.5 [facility] Comment on above: Performed By: #### C JAHAIRA BURGESS, 75176-9, TSHR #### [facility] ([id number]) [address] [place] [address] Lymphocytes/100 WBC (Bld) 22.1 % Normal [facility] Comment on above: Performed By: #### Terrell BURGESS CMP, 74742-1, TSHR #### [facility] ([id number]) [address] [facility] [address] [place] [address] MCH (RBC) [Entitic mass] 29.0 pg Normal 27-34 [facility] Comment on above: Performed By: #### Terrell BURGESS CMP, 61903-8, TSHR #### [facility] ([id number]) [address], [address] [place] [address] MCHC (RBC) [Mass/Vol] 32.8 g/dL Normal 32-36 [facility] Comment on above: Performed By: #### Terrell BURGESS CMP, 28176-7, TSHR #### [facility] ([id number]) [address] [place] [address] MCV (RBC) [Entitic vol] 88 fL Normal 80-100 [facility] Comment on above: Performed By: #### Terrell BURGESS CMP, 85978-5, TSHR #### [facility] ([id number]) [address], [address] [place] [address] Monocytes (Bld) [#/Vol] 0.6 10*3/uL Normal 0-0.9 [facility] Comment on above: Performed By: #### Terrell BURGESS CMP, 60045-1, TSHR #### [facility] ([id number]) [address] [place] [address] Monocytes/100 WBC (Bld) 5.7 % Normal [facility] Comment on above: Performed By: #### C ADITYA CMP, 97488-9, TSHR #### [facility] ([id number]) [address] [place] [address] Neutrophils/100 WBC (Bld) 70.8 % Normal [facility] Comment on above: Performed By: #### Terrell BURGESS CMP, 94387-8, TSHR #### [facility] ([id number]) [address], [address] [place] [address] Platelet mean volume (Bld) [Entitic vol] 9.7 fL Normal 7-12 [facility] Comment on above: Performed By: #### Terrell BURGESS CMP, 90995-6, TSHR #### [facility] ([id number]) [address] [place] [address] Platelets (Bld) [#/Vol] 303 10*3/uL Normal 150-450 [facility] Comment on above: Performed By: #### Terrell BURGESS CMP, 75212-8, TSHR #### [facility] ([id number]) [address], [address] [place] [address] RBC COUNT 5.17 X10E12/L Normal 3.80-5.20 [facility] Comment on above: Performed By: #### Terrell BURGESS CMP, 67314-4, TSHR #### [facility] ([id number]) [address] [place] [address] WBC (Bld) [#/Vol] 10.9 10*3/uL Normal 4.0-11.0 [facility] Comment on above: Performed By: #### Terrell BCA, CMP, 91799-0, TSHR #### [facility] ([id number]) [address], [address] [place] [address] COMPREHENSIVE METABOLIC PANE Dirk 03-16-2023 Albumin [Mass/Vol] 4.7 g/dL Normal 3.2-5.3 [facility] Comment on above: Performed By: #### C ADITYA CMP, 40894-5, TSHR #### [facility] ([id number]) [address], [address] [place] [address] ALP [Catalytic activity/Vol] 74 U/L Normal 39-130 [facility] Comment on above: Performed By: #### C ADITYA CMP, 31291-4, TSHR #### [facility] ([id number]) [address], [address] [place] [address] ALT [Catalytic activity/Vol] 22 U/L Normal 0-31 [facility] Comment on above: Performed By: #### C ADITYA CMP, 29131-2, TSHR #### [facility] ([id number]) [address], [address] [place] [address] Anion gap [Moles/Vol] 12 mmol/L Normal 5-15 [facility] Comment on above: Performed By: #### C ADITYA CMP, 97203-0, TSHR #### [facility] ([id number]) [address] [place] [address] AST [Catalytic activity/Vol] 20 U/L Normal 0-41 [facility] Comment on above: Performed By: #### C BCA CMP, 76998-9, TSHR #### [facility] ([id number]) [address], [address] [place] [address] Bilirubin [Mass/Vol] 0.5 mg/dL Normal 0.3-1.2 [facility] Comment on above: Performed By: #### C BCA, CMP, 91790-9, TSHR #### [facility] ([id number]) [address] [place] [address] Calcium [Mass/Vol] 9.9 mg/dL Normal 8.5-10.5 [facility] Comment on above: Performed By: #### C JAHAIRA BURGESS, 53523-8, TSHR #### [facility] ([id number]) [address], [address] [place] [address] Chloride [Moles/Vol] 105 mmol/L Normal 98-109 [facility] Comment on above: Performed By: #### C ADITYA CMP, 00033-7, TSHR #### [facility] ([id number]) [address], [address] [place] [address] CO2 [Moles/Vol] 25 mmol/L Normal 22-32 [facility] Comment on above: Performed By: #### C ADITYA, JAHAIRA, 34383-6, TSHR #### [facility] ([id number]) [address], [address] [place] [address] Creatinine [Mass/Vol] 0.74 mg/dL Normal 0.40-1.00 [facility] Comment on above: Result Comment: METH OD TRACEABLE TO IDMS STANDARD Performed By: #### C JAHAIRA BURGESS, 56052-9, TSHR #### [facility] ([id number]) [address] [address] [place] [address] eGFR (CKD-EPI) NON-RACE DEPENDENT >90 Normal >59 [facility] Comment on above: Result Comment: Reported eGFR is based on the CKD-EPI 2020 equation that does not use a race coefficient. Performed By: #### C ADITYA, CMP, 98900-5, TSHR #### [facility] ([id number]) [address] [place] [address] Glucose [Mass/Vol] 143 mg/dL High 65-99 [facility] Comment on above: Performed By: #### C BCA, CMP, 56891-9, TSHR #### [facility] ([id number]) [address] [place] [address] Potassium [Moles/Vol] 3.8 mmol/L Normal 3.5-5.0 [facility] Comment on above: Performed By: #### C JAHAIRA BURGESS, 44806-7, TSHR #### [facility] ([id number]) [address] [place] [address] Protein [Mass/Vol] 7.8 g/dL Normal 6.0-8.0 [facility] Comment on above: Performed By: #### C ADITYA, CMP, 83334-3, TSHR #### [facility] ([id number]) [address] [place] [address] Sodium [Moles/Vol] 142 mmol/L Normal 134-146 [facility] Comment on above: Performed By: #### Terrell BURGESS CMP, 34450-1, TSHR #### [facility] ([id number]) [address] [place] [address] Urea nitrogen [Mass/Vol] 17 mg/dL Normal 5-23 [facility] Comment on above: Performed By: #### C ADITYA, JAHAIRA, 43251-8, TSHR #### [facility] ([id number]) [address], [address] [place] [address] HGB A1C (GLYCO-HGB)on 2023 Glucose [Mass/Vol] 117 mg/dL Normal [facility] Comment on above: Performed By: #### C ADITYA, CMP, 54779-3, TSHR #### [facility] ([id number]) [address], [address] [place] [address] HbA1c (Bld) [Mass fraction] 5.7 % High 4.4-5.6 [facility] Comment on above: Result Comment: NOTE ADA Guidelines Result HgbA1c Normal : less than 5.7 % Prediabetes : 5.7 % to 6.4 % Diabetes : > 6.4 % Use with caution in patients with abnormal hemoglobin variants as the half-life of red blood cells and in vivo glycation rates are affected. Performed By: #### Terrell BURGESS CMP, 78289-7, TSHR #### [facility] ([id number]) [address] [place] [address] Lipid 1996 panelon 4 Cholesterol [Mass/Vol] 132 mg/dL Low 150-200 [facility] Comment on above: Performed By: #### Terrell BURGESS CMP, 39027-7, TSHR #### [facility] ([id number]) [address], [address] [place] [address] Cholesterol in HDL [Mass/Vol] 58 mg/dL Normal >39 [facility] Comment on above: Result Comment: HDL <40 mg/dL - High Risk HDL > or = 40mg/dL- Desirable HDL >60 mg/dL - Negative Risk Performed By: #### Terrell BURGESS CMP, 50112-7, TSHR #### [facility] ([id number]) [address] [place] [address] Cholesterol in LDL [Mass/Vol] 51 mg/dL Normal <130 [facility] Comment on above: Result Comment: LDL <100 mg/dL - Desirable LDL >160 mg/dL - High Risk Performed By: #### Terrell BURGESS, JAHAIRA, 22905-5, TSHR #### [facility] ([id number]) [address] [place] [address] Cholesterol in VLDL [Mass/Vol] 23 mg/dL Normal 0-30 [facility] Comment on above: Performed By: #### C BCA, CMP, 58202-4, TSHR #### [facility] ([id number]) [address], [address] [place] [address] CHOLESTEROL:HDL 2.3 Normal 1.0-5.0 [facility] Comment on above: Performed By: #### C BCA, CMP, 46297-5, TSHR #### [facility] ([id number]) [address] [place] [address] Triglyceride [Mass/Vol] 114 mg/dL Normal 27-150 [facility] Comment on above: Performed By: #### C BCA, CMP, 25021-2, TSHR #### [facility] ([id number]) [address] [place] [address] 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 MAMM SCREENING BILATERAL W CAD [...] 3:25 PM 0A a ADDITIONAL I Normal [facility] TSH WITH REFLEXon 03-16-2023 TSH 0.55 uIU/mL Normal 0.49-4.67 [facility] Comment on above: Performed By: #### C BCA, CMP, 52598-5, TSHR #### [facility] ([id number]) [address], [address] [place] [address] PT - Assessmentson 3 PT - Assessments [id number]#1.00CD:12 7 Normal [facility] ST - Assessmentson 3 ST - Assessments [id number]#1.00CD:127 [facility] 09-25-2022 Consent [id number]#1.00CD:127 [facility] Outside Recordson 2022 Outside Records [id number]#1.00CD:[address] [facility] [address] - Orderson 2022 ST - Orders [id number]#1.00CD:[address] [facility] [address] - Orders [id number]#1.00CD:[address] [facility] [address] - Otheron 2022 ST - Other [id number]#1.00CD:127 [facility] PAP ACOG PANEL 2: 30 to 65on 05-27-2022 . . Normal [facility] Comment on above: Result Comment: Perf ormed at: WB Performed By: #### 4 [id number] #### [facility] [address] [place] [address] Dr. Do Aguilar Age Gdln ACOG Testing 30-65 [facility] Comment on above: Performed By: #### 4 [id number] #### [facility] [address] [address] [address] Do Aguilar DIAGNOSIS: Comment Normal [facility] Comment on above: Result Comment: NEGA TIVE FOR INTRAEPITHELIAL LESION OR MALIGNANCY. Performed at: WB Performed By: #### 4 [id number] #### [facility] [address] [address] [address] Do Aguilar HPV Aptima Negative Normal Negative [facility] Comment on above: Result Comment: This nucleic acid amplification test detects fourteen high-risk HPV types (16,18,31,33,35,39,45,51,52,56,58,59,66,68) without differentiation. Performed at: =G Performed By: #### 4 [id number] #### [facility] [address] [place] [address] Dr. Do Aguilar HPV Genotype Reflex Comment Normal [facility] Comment on above: Result Comment: Crit eria not met, HPV Genotype not performed. Performed at: WB Performed By: #### 4 [id number] #### [facility] [address] [place] [address] Dr. Do Aguilar Methodology: Comment Normal [facility] Comment on above: Result Comment: This liquid based ThinPrep(R) pap test was screened with the use of an image guided system. Performed at: WB Performed By: #### 4 [id number] #### [facility] [address] [place] [address] Dr. Do Aguilar Note: Comment Normal [facility] Comment on above: Result Comment: The Pap smear is a screening test designed to aid in the detection of premalignant and malignant conditions of the uterine cervix. It is not a diagnostic procedure and should not be used as the sole means of detecting cervical cancer. Both false-positive and false-negative reports do occur. . Performed at: WB Performed By: #### 4 [id number] #### [facility] [address] [place] [address] Dr. Do Aguilar Performed by: Comment Normal [facility] Comment on above: Result Comment: Melissa Ramachandran, Lunchroom Food Service Supervisor (ASCP) Performed at: WB Performed By: #### 4 [id number] #### [facility] [address] [place] [address] Dr. Do Aguilar Specimen adequacy: Comment Normal [facility] Comment on above: Result Comment: Sati sfactory for evaluation. Endocervical and/or squamous metaplastic cells (endocervical component) are present. Performed at: WB Performed By: #### 4 [id number] #### [facility] [address] [place] [address] Dr. Do Aguilar HEPATITIS C AB CASCADE TO QU ANT PCR GENOon 02-18-2022 HCV AB <0.1 Normal 0.0-0.9 [facility] Comment on above: Performed By: #### H EPCASC #### [facility] [address] [place] [address] Dr. Do Aguilar Interpretation: Comment Normal [facility] Comment on above: Result Comment: Nega tive Not infected with HCV, unless recent infection is suspected or other evidence exists to indicate HCV infection. Performed By: #### H EPCASC #### [facility] [address] [place] [address] Dr. Do Aguilar LIVER PROFILEon 02-17-2022 Albumin [Mass/Vol] 3.6 g/dL Normal 3.4-5.0 [facility] Comment on above: Performed By: #### L IVER #### [facility] [address] [place] [address] Dr. Do Aguilar Albumin/Globulin [Mass ratio] 0.9 {ratio} Normal [facility] Comment on above: Performed By: #### L IVER #### [facility] [address] [place] [address] Dr. Do Aguilar ALP [Catalytic activity/Vol] 79 U/L Normal 46-116 [facility] Comment on above: Performed By: #### L IVER #### [facility] [address] [place] [address] Dr. Do Aguilar ALT [Catalytic activity/Vol] 51 U/L Normal 14-59 [facility] Comment on above: Performed By: #### L IVER #### [facility] [address] [place] [address] Dr. Do Aguilra AST [Catalytic activity/Vol] 33 U/L Normal 15-37 [facility] Comment on above: Performed By: #### L IVER #### [facility] [address] [place] [address] Dr. Do Aguilar BILI, CONJUGATED 0.1 mg/dL Normal 0.0-0.2 [facility] Comment on above: Performed By: #### L IVER #### [facility] [address] [place] [address] Dr. Do Aguilar Bilirubin [Mass/Vol] 0.3 mg/dL Normal 0.2-1.0 [facility] Comment on above: Performed By: #### L IVER #### [facility] [address] [place] [address] Dr. Do Aguilar Globulin (S) [Mass/Vol] 4.2 g/dL Normal [facility] Comment on above: Performed By: #### L IVER #### [facility] [address] [place] [address] Dr. Do Aguilar Protein [Mass/Vol] 7.8 g/dL Normal 6.4-8.2 [facility] Comment on above: Performed By: #### L IVER #### [facility] [address] [place] [address] Dr. Do Aguilar TSHon 02-17-2022 TSH 0.457 uIU/mL Normal 0.358-3.74 0 [facility] Comment on above: Performed By: #### T SH #### [facility] [address] [place] [address] Dr. Do Aguilar VITAMIN B12on 02-17-2022 Cobalamin (Vitamin B12) [Mass/Vol] 1864.0 pg/mL Critically high 193.0-986. 0 [facility] Comment on above: Performed By: #### V ITB12 #### [facility] [address] [place] [address] Dr. Do Aguilar History and Physicalon 12-04 History and Physical [id number]#[address] Operative Report - Surgeon/P godwin 12-04-2016 Operative Report - Surgeon/Physician [id number]#[address] [place] [address] Coding Summaryon 11-26-2016 Coding Summary CODING DATE: 017 [facility] STATUS: Home PAYOR: Medicaid HMO ADMIT DX: REASON FOR VISIT DX: R10.13 Epigastric pain R10.11 Right upper quadrant pain FINAL DX: PRINCIPAL: K29.70 Gastritis, unspecified, without bleeding SECONDARY: PROCEDURES DOCTOR NAME DATE 53779 Esophagogastroduodenoscopy , Juan Ramon Jean MD 11/21/2016 flexible, transoral; with biopsy, single or multiple NOTE: The code number assigned matches the documented diagnosis and / or procedure in the patient's chart. However, the narrative phrase printed from the coding software may appear abbreviated, or result in slightly different terminology. Coded By: Rosalba Laureano Date Saved: 11/26/2016 01:09 pm [facility] Consent Formson 11-24-2016 Consent Forms [id number]#[address] Intraoperative Noteon 2016 Intraoperative Note [id number]#[address] [place] [address] Intraoperative Note [id number]#[address] [place] [address] Operative Report - Surgeon/P godwin 11-24-2016 Operative Report - Surgeon/Physician DATE OF PROCEDURE: 11/21/2016PREOPERATIVE DIAGNOSIS: Epigastric pain/right upper quadrant pain.POSTOPERATIVE DIAGNOSIS: Moderate gastritis.PROCEDURE PERFORMED: EGD with biopsy x1 from the antrum of the stomach forH. pylori testing.SURGEON: Juan Ramon Jean M.D.ANESTHESIA: Conscious sedation with Versed 6 mg IV, Demerol 50 mg IV.FINDINGS: As above.DISPOSITION: To the [facility] area in fair condition.INDICATIONS: The patient [...] in two weeks.Juan Ramon Jean M.D.JOB #: [id number]: 11/21/2016T: 11/21/2016[Electronically Signed on: 12/03/2016 07:09 EDT] Juan Ramon Jean MD Generated Domain User for [id number][Verified on: 12/03/2016 07:09 EDT] Juan Ramon Jean MD[Transcribed on: 11/21/2016 11:37 EDT][facility] Telemetry Stripson 7 Telemetry Strips [id number]#1.00OTGTIFF [facility] Telemetry Strips [id number]#1.00OTGTIFF Normal [facility] H. Pylori Gastricon 11-22-19 H. Pylori Rico Int Ctrl Pass [facility] Comment on above: Order Comment: H. (A NTRUM) Result Comment: Pass Performed By: #### 2 [id number] ####[facility] (DEFAULT)[address] [place] [address] H. Pylori Gastric Negative Normal Negative [facility] Comment on above: Order Comment: H. (A NTRUM) Result Comment: Nega tive Performed By: #### 2 [id number] ####[facility] (DEFAULT)[address] [place] [address] Inpatient Clinical Summaryon 11-21-2016 Inpatient Clinical Summary [facility] SURGERYClinical Discharge SummaryPERSON INFORMATIONName ROSE KARMA BANEGAS Age 36 Years 80Sex FEMALE Language Croatian PCP DEFRANCE, DAVIDMarital Status [facility] Acct# Arrival 11/21/16 07:22:21Visit Reason EGD - EPIGASTRIC ABDOMINAL PAIN Acuity LOS 013 23:19Address:[address] [id number]:PROVIDER INFORMATIONVITALS INFORMATIONVital Sign Triage LatestTemp OralTemp Temporal 36.4 DegC 36.4 DegCTemp IntravascularTemp AxillaryTemp Omxkgd31 Sat 100 % 97 %Respiratory Rate 16 [...] llow up:With: Address: When:Juan Ramon Jean [address] [place] [address] [employer] (1) Within 2 to 4 weeksComments:Call for follow up appointmentWith: Address: When:DOMENICA OLIVA [address] [place] [address] Business (1)DIAGNOSISAcute gastritisComment:PHYS DOC NOTES Normal [facility] Inpatient Patient Summaryon 11-21-2016 Inpatient Patient Summary [facility] [place], [place] [address] patient Discharge InstructionsName: KARMA SRDOB: [birth year] Address: [address] [place] [address] Care Provider:Name: DOMENICA OLIVAPhone: Discharge Diagnosis: Acute [...] or business decisions or sign any legal documentsC[facility] Clinic [facility] would like to thank you for allowing us to assist you with your healthcare needs. The following includes patient education materials and information regarding your injury/illness.KARMA SR has been given the following list of follow-up instructions, prescriptions, and patient education materials:Follow-up InstructionsWith: Address: When:Juan Ramon Jean [address] [phone] Business (1) Within 2 to 4 weeksComments:Call for follow up appointmentWith: Address: When:DOMENICA OLIVA [address] [phone] [facility] (1)MedicationsDuring the course of your visit, [...] October 2013 [facility] MAGR Endo Intraoperative Rec ordon 11-21-2016 [facility] Endo Intraoperative Record [facility] Endo Intra-Op Record Summary Primary Physician: Juan Ramon Jean MD Finalized Date/Time: 11/21/16 08:37:38 Pt. Name: KARMA SR /Sex: 1980 FEMALE Med Rec #: [id number] Physician: Juan Ramon Jean MD Financial #: [id number] Pt. Type: D Room/Bed: / Admit/Disch: 11/21/16 [...] Jane RN Role Performed Surgeon - Primary Cripple Chaser Cripple Chaser Time In 11/21/16 08:06:00 11/21/16 08:06:00 11/21/16 [...] Unfinalizing Freetext Reason for Unfinalizing 11/21/16 08:37 [facility] Pick List Normal [facility] MAGR Endo Postoperative Benjamin rdon 11-21-2016 MAG[facility] Endo Postoperative Record MAG[facility] Endo Phase II Record Summary Primary Physician: Juan Ramon Jean MD Finalized Date/Time: 11/21/16 10:02:07 Pt. Name: KARMA SR/Sex: 1980 FEMALE Med Rec #: [id number] Physician: Juan Ramon Jean MD Financial #: [id number] Pt. Type: D Room/Bed: / Admit/Disch: 11/21/16 [...] Signed By: Cammy Barroso RN 11/21/16 10:02 [facility] MAGR Endo Preoperative Recor don 11-21-2016 MAG[facility] Endo Preoperative Record MAG[facility] Endo Pre-Op Record Summary Primary Physician: Juan Ramon Jean MD Finalized Date/Time: 11/21/16 08:27:58 Pt. Name: KARMA SR D.O.B./Sex: 1980 FEMALE Med Rec #: [id number] Physician: Juan Ramon Jean MD Financial #: [id number] Pt. Type: D Room/Bed: / Admit/Disch: 11/21/16 [...] Signed By: Cammy Barroso RN 11/21/16 08:27 [facility] Test Urine 1on U Preg Negative [facility] Comment on above: Result Comment: Nega tive Performed By: #### 3 [id number] ####[facility] (DEFAULT)[address] [place] [address] U Preg Internal Control Pass [facility] Comment on above: Result Comment: Pass Performed By: #### 3 [id number] ####[facility] (DEFAULT)[address] [place] [address] Vital Signs Date Time Vital Sign Value Performing Clinician Facility 04-28-2024 10:050 Body height 160 cm Mendez Cardoso DO Work Phone: [facility] 04-28-2024 10:28-050 Body mass index (BMI) [Ratio] 38.79 kg/m2 Mendez Cardoso DO Work Phone: [facility] 04-28-2024 10:28-0500 Body weight 99.34 kg Mendez Cardoso DO Work Phone: [facility] 04-18-2024 10:57-0500 Body mass index (BMI) [Ratio] 38.79 kg/m2 Roel Arto DO Work Phone: [facility] 04-18-2024 10:57-0500 Body weight 99.34 kg Roel Arto DO Work Phone: [facility] 04-18-2024 10:57-0500 Diastolic blood pressure 84 mm[Hg] Roel Arto DO Work Phone: [facility] 04-18-2024 10:57-0500 Systolic blood pressure 138 mm[Hg] Roel Arto DO Work Phone: [facility] 04-07-2024 10:31-0500 Body height 160 cm Cleo Zabmrano MD Work Phone: [facility] 04-07-2024 10:31-0500 Body mass index (BMI) [Ratio] 39.33 kg/m2 Cleo Zambrano MD Work Phone: [facility] 04-07-2024 10:31-0500 Body weight 100.7 kg Cleo Zambrano MD Work Phone: [facility] 04-07-2024 10:31-0500 Diastolic blood pressure 82 mm[Hg] Cleo Zambrano MD Work Phone: [facility] 04-07-2024 10:31-0500 Heart rate 107 /min Cleo Zambrano MD Work Phone: [facility] 04-07-2024 10:31-0500 Respiratory rate 16 /min Cleo Zambrano MD Work Phone: [facility] 04-07-2024 10:31-0500 SaO2% (BldA) [Mass fraction] 98 % Cleo Zambrano MD Work Phone: [facility] 04-07-2024 10:31-0500 Systolic blood pressure 122 mm[Hg] Cleo Zambrano MD Work Phone: [facility] 01-21-2024 09:35-0500 Body height 160.02 cm Rory Driver PHYSICAL SCIENCES PROFESSOR-BC Work Phone: [facility] 01-21-2024 09:35-0500 Body mass index (BMI) [Ratio] 38.8 kg/m2 Rory Beebemo PHYSICAL SCIENCES PROFESSOR-BC Work Phone: [facility] 01-21-2024 09:35-0500 Body weight 99.4 kg Rory Driver PHYSICAL SCIENCES PROFESSOR-BC Work Phone: [facility] 01-13-2024 17:30-0500 Diastolic blood pressure 71 mm[Hg] Lisette Junior DO Work Phone: [facility] [employer] 01-13-2024 17:30-0500 Heart rate 95 /min Lisette Junior DO Work Phone: [facility] [employer] 01-13-2024 17:30-0500 SaO2% (BldA) [Mass fraction] 99 % Lisette Junior DO Work Phone: [employer] 01-13-2024 17:30-0500 Systolic blood pressure 131 mm[Hg] Lisette Junior DO Work Phone: [facility] [employer] 01-13-2024 15:30-0500 Respiratory rate 16 /min Lisette Junior DO Work Phone: [facility] [employer] 01-13-2024 14:24-0500 Body height 160 cm Lisette Junior DO Work Phone: [employer] 01-13-2024 14:24-0500 Body mass index (BMI) [Ratio] 37.55 kg/m2 Lisette Junior DO Work Phone: [employer] 01-13-2024 14:24-0500 Body temperature 98.1 [degF] Lisette Junior DO Work Phone: [facility] 01-13-2024 14:24-0500 Body weight 96.16 kg Lisette Junior DO Work Phone: [facility] 11-30-2023 11:10-0400 Body height 160 cm Brittany Gottijigna BRAND MARKETING COORDINATOR Work Phone: [facility] 11-30-2023 11:10-0400 Body mass index (BMI) [Ratio] 35.96 kg/m2 Brittany Gilldaner BRAND MARKETING COORDINATOR Work Phone: [facility] 11-30-2023 11:100400 Body weight 92.08 kg Brittany Gillmor BRAND MARKETING COORDINATOR Work Phone: [facility] 11-30-2023 10:26-0400 Diastolic blood pressure 70 mm[Hg] Brittany Ana Maríajigna BRAND MARKETING COORDINATOR Work Phone: [facility] 11-30-2023 10:26-0400 Heart rate 90 /min Brittany Gilldaner BRAND MARKETING COORDINATOR Work Phone: [facility] 11-30-2023 10:26-0400 SaO2% (BldA) [Mass fraction] 96 % Brittany Gilldaner BRAND MARKETING COORDINATOR Work Phone: [facility] 11-30-2023 10:26-0400 Systolic blood pressure 118 mm[Hg] Brittany Gilljigna BRAND MARKETING COORDINATOR Work Phone: [facility] 05-21-2023 11:22-0400 Body height 160.02 cm [facility] 05-21-2023 11:22-0400 Body mass index (BMI) [Ratio] 36.5 kg/m2 [facility] 05-21-2023 11:22-0400 Body weight 93.44 kg [facility] 05-21-2023 10:39-0400 Body height 160.02 cm [facility] 05-21-2023 10:39-0400 Body mass index (BMI) [Ratio] 36.5 kg/m2 [facility] 05-21-2023 10:39-0400 Body weight 93.49 kg [facility] 05-21-2023 10:39-0400 Diastolic blood pressure 77 mm[Hg] [facility] 05-21-2023 10:39-0400 Heart rate 105 /min [facility] 05-21-2023 10:39-0400 Respiratory rate 18 /min [facility] 05-21-2023 10:39-0400 SaO2% (BldA) [Mass fraction] 95 % [facility] 05-21-2023 10:39-0400 Systolic blood pressure 114 mm[Hg] [facility] 04-20-2023 12:41-0500 Body mass index (BMI) [Ratio] 36.49 kg/m2 Shawna Rumschlag DO Work Phone: [facility] 04-20-2023 12:41-0500 Body weight 93.44 kg Shawna Rumschlag DO Work Phone: [facility] [employer] [facility] 04-20-2023 12:41-0500 Diastolic blood pressure 76 mm[Hg] Shawna Rumschlag DO Work Phone: [employer] 04-20-2023 12:41-0500 Heart rate 83 /min Shawna Rumschlag DO Work Phone: [employer] 04-20-2023 12:41-0500 Respiratory rate 16 /min Shawna Rumschlag DO Work Phone: [employer] 04-20-2023 12:41-0500 SaO2% (BldA) [Mass fraction] 98 % Shawna Rumschlag DO Work Phone: [employer] 04-20-2023 12:41-0500 Systolic blood pressure 129 mm[Hg] Shawna Rumschlag DO Work Phone: [employer] 04-20-2023 12:39-0500 Body temperature 97.3 [degF] Shawna Rumschlag DO Work Phone: [employer] 03-18-2023 11:30-0500 Diastolic blood pressure 84 mm[Hg] MD Yo Blank Work Phone: [facility] 03-18-2023 11:30-0500 Heart rate 95 /min MD Yo Blank Work Phone: [facility] 03-18-2023 11:30-0500 Respiratory rate 16 /min MD Yo Blank Work Phone: [facility] 03-18-2023 11:30-0500 SaO2% (BldA) [Mass fraction] 99 % MD Yo Blank Work Phone: [facility] 03-18-2023 11:30-0500 Systolic blood pressure 123 mm[Hg] MD Yo Blank Work Phone: [facility] 03-05-2023 09:15-0500 Body height 160.02 cm Gayathri Scally Other [employer] Other 03-05-2023 09:15-0500 Body mass index (BMI) [Ratio] 37.57 kg/m2 Gayathri Scally Other [employer] Other 03-05-2023 09:15-0500 Body weight 96.21 kg Gayathri Scally Other [employer] Other 03-05-2023 09:15-0500 Diastolic blood pressure 89 mm[Hg] Gayathri Scally Other [employer] Other 03-05-2023 09:15-0500 Respiratory rate 18 /min Gayathri Scally Other [employer] Other 03-05-2023 09:15-0500 SaO2% (BldA) [Mass fraction] 96 % Gayathri Scally Other [employer] Other 03-05-2023 09:15-0500 Systolic blood pressure 122 mm[Hg] Gayathri Adams Other [employer] Other 03-02-2023 19:24-0500 Body height 160 cm Sil Sullivan DO Work Phone: [employer] 03-02-2023 19:24-0500 Body mass index (BMI) [Ratio] 36.31 kg/m2 Sil Sullivan DO Work Phone: [employer] 03-02-2023 19:24-0500 Body temperature 98.29 [degF] Sil Sullivan DO Work Phone: [employer] 03-02-2023 19:24-0500 Body weight 92.99 kg Sil Sullivan DO Work Phone: [employer] 03-02-2023 19:24-0500 Diastolic blood pressure 98 mm[Hg] Sil Sullivan DO Work Phone: [employer] 03-02-2023 19:24-0500 Heart rate 82 /min Sil Sullivan DO Work Phone: [employer] 03-02-2023 19:24-0500 Respiratory rate 18 /min Sil Sullivan DO Work Phone: [employer] 03-02-2023 19:24-0500 SaO2% (BldA) [Mass fraction] 98 % Sil Sullivan DO Work Phone: [employer] 03-02-2023 19:24-0500 Systolic blood pressure 139 mm[Hg] Sil Sullivan DO Work Phone: [employer] 02-05-2023 09:20-0500 Body height 160.02 cm Jan Garg Other [employer] Other 02-05-2023 09:20-0500 Body mass index (BMI) [Ratio] 36.66 kg/m2 Jan Scovanner Other [employer] Other 02-05-2023 09:20-0500 Body weight 93.9 kg Jan Scovanner Other [employer] Other 01-15-2023 09:45-0500 Body height 160.02 cm Gayathri Scally Other [employer] Other 01-15-2023 09:45-0500 Body mass index (BMI) [Ratio] 36.68 kg/m2 Gayathri Scally Other [employer] Other 01-15-2023 09:45-0500 Body weight 93.94 kg Gayathri Scally Other [employer] Other 01-15-2023 09:45-0500 Diastolic blood pressure 83 mm[Hg] Gayathri Scally Other [employer] Other 01-15-2023 09:45-0500 Respiratory rate 18 /min Gayathri Scally Other [employer] Other 01-15-2023 09:45-0500 SaO2% (BldA) [Mass fraction] 99 % Gayathri Scally Other [employer] Other 01-15-2023 09:45-0500 Systolic blood pressure 119 mm[Hg] Gayathri Scally Other [employer] Other 01-07-2023 10:00-0500 Body height 160.02 cm Jan Scovanner Other [employer] Other 01-07-2023 10:00-0500 Body mass index (BMI) [Ratio] 36.13 kg/m2 Jan Scovanner Other [employer] Other 01-07-2023 10:00-0500 Body weight 92.53 kg Jan Scovanner Other [employer] Other 01-07-2023 10:00-0500 Diastolic blood pressure 74 mm[Hg] Jan Scovanner Other [employer] Other 01-07-2023 10:00-0500 Systolic blood pressure 118 mm[Hg] Jan Scovanner Other [employer] Other 08-28-2022 09:00-0400 Body height 160.02 cm Tamar Fitt Other [employer] Other 08-28-2022 09:00-0400 Body mass index (BMI) [Ratio] 35.8 kg/m2 Tamar Fitt Other [employer] Other 08-28-2022 09:00-0400 Body weight 91.67 kg Tamar Fitt Other [employer] Other 07-29-2022 10:15-0400 Body height 160.02 cm Gayathri Scally Other [employer] Other 07-29-2022 10:15-0400 Body mass index (BMI) [Ratio] 35.18 kg/m2 Gayathri Scally Other [employer] Other 07-29-2022 10:15-0400 Body weight 90.08 kg Gayathri Scally Other [employer] Other 07-29-2022 10:15-0400 Diastolic blood pressure 84 mm[Hg] Gayathri Scally Other [employer] Other 07-29-2022 10:15-0400 Respiratory rate 18 /min Gayathri Scally Other [employer] Other 07-29-2022 10:15-0400 SaO2% (BldA) [Mass fraction] 99 % Gayathri Scally Other [employer] Other 07-29-2022 10:15-0400 Systolic blood pressure 127 mm[Hg] Gayathri Scally Other [employer] Other 05-20-2022 11:15-0400 Body height 160.02 cm Gayathri Scally Other [employer] Other 05-20-2022 11:15-0400 Body mass index (BMI) [Ratio] 34.52 kg/m2 Gayathri Scally Other [employer] Other 05-20-2022 11:15-0400 Body weight 88.41 kg Gayathri Scally Other [employer] Other 05-20-2022 11:15-0400 Diastolic blood pressure 82 mm[Hg] Gayathri Scally Other [employer] Other 05-20-2022 11:15-0400 Respiratory rate 18 /min Gayathri Scally Other [employer] Other 05-20-2022 11:15-0400 SaO2% (BldA) [Mass fraction] 97 % Agyathri Scally Other [employer] Other 05-20-2022 11:15-0400 Systolic blood pressure 121 mm[Hg] Gayathri Scally Other [employer] Other 04-08-2022 11:15-0500 Body height 160.02 cm Gayathri Scally Other [employer] Other 04-08-2022 11:15-0500 Body mass index (BMI) [Ratio] 34.49 kg/m2 Gayathri Scally Other [employer] Other 04-08-2022 11:15-0500 Body weight 88.32 kg Gayathri Scally Other [employer] Other 04-08-2022 11:15-0500 Diastolic blood pressure 77 mm[Hg] Gayathri Scally Other [employer] Other 04-08-2022 11:15-0500 Respiratory rate 18 /min Gayathri Scally Other [employer] Other 04-08-2022 11:15-0500 SaO2% (BldA) [Mass fraction] 98 % Gayathri Scally Other [employer] Other 04-08-2022 11:15-0500 Systolic blood pressure 110 mm[Hg] Gayathri Scally Other [employer] Other 04-08-2022 10:15-0500 Body height 160.02 cm Tamar Sosa Other [employer] Other 04-08-2022 10:15-0500 Body mass index (BMI) [Ratio] 34.49 kg/m2 Tamar Fitt Other [employer] Other 04-08-2022 10:15-0500 Body weight 88.32 kg Tamar Fitt Other [employer] Other 02-26-2022 10:00-0500 Body height 160.02 cm Tamar Fitt Other [employer] Other 02-25-2022 11:45-0500 Body height 160.02 cm Gayathri Scally Other [employer] Other 02-25-2022 11:45-0500 Body mass index (BMI) [Ratio] 36.63 kg/m2 Gayathri Scally Other [employer] Other 02-25-2022 11:45-0500 Body weight 93.8 kg Gayathri Scally Other [employer] Other 02-25-2022 11:45-0500 Diastolic blood pressure 78 mm[Hg] Gayathri Scally Other [employer] Other 02-25-2022 11:45-0500 Respiratory rate 18 /min Gayathri Scally Other [employer] Other 02-25-2022 11:45-0500 SaO2% (BldA) [Mass fraction] 97 % Gayathri Scally Other [employer] Other 02-25-2022 11:45-0500 Systolic blood pressure 109 mm[Hg] Gayathri Scally Other [employer] Other 01-14-2022 11:45-0500 Body height 160.02 cm Gayathri Scally Other [employer] Other 01-14-2022 11:45-0500 Body mass index (BMI) [Ratio] 39.37 kg/m2 Gayathri Scally Other [employer] Other 01-14-2022 11:45-0500 Body weight 100.84 kg Gayathri Scally Other [employer] Other 01-14-2022 11:45-0500 Diastolic blood pressure 88 mm[Hg] Gayathri Scally Other [employer] Other 01-14-2022 11:45-0500 Respiratory rate 18 /min Gayathri Scally Other [employer] Other 01-14-2022 11:45-0500 SaO2% (BldA) [Mass fraction] 97 % Gayathri Scally Other [employer] Other 01-14-2022 11:45-0500 Systolic blood pressure 124 mm[Hg] Gayathri Scally Other [employer] Other 12-04-2021 12:00-0400 Body height 160.02 cm Gayathri Scally Other [employer] Other 12-04-2021 12:00-0400 Body mass index (BMI) [Ratio] 39.73 kg/m2 Gayathri Scally Other [employer] Other 12-04-2021 12:00-0400 Body weight 101.74 kg Gayathri Scally Other [employer] Other 12-04-2021 12:00-0400 Diastolic blood pressure 74 mm[Hg] Gayathrimarino Barahonaly Other [employer] Other 12-04-2021 12:00-0400 Respiratory rate 18 /min Gayathrimarino Barahonaly Other [employer] Other 12-04-2021 12:00-0400 SaO2% (BldA) [Mass fraction] 95 % Gayathri Barahonaly Other [employer] Other 12-04-2021 12:00-0400 Systolic blood pressure 110 mm[Hg] Gayathri Brooklynly Other [employer] Other 10-29-2021 11:30-0400 Body height 160.02 cm Yo Blank Other [employer] Other 10-29-2021 11:30-0400 Body mass index (BMI) [Ratio] 38.61 kg/m2 Yo Blank Other [employer] Other 10-29-2021 11:30-0400 Body weight 98.88 kg Yo Blank Other [employer] Other 10-29-2021 11:30-0400 Diastolic blood pressure 74 mm[Hg] Yo Blank Other [employer] Other 10-29-2021 11:30-0400 Systolic blood pressure 111 mm[Hg] Yo Blank Other [employer] Other 10-22-2021 13:26-0400 Body temperature 97.2 [degF] Shawna Rumschlag DO Work Phone: [facility] [employer] 10-22-2021 13:26-0400 Diastolic blood pressure 71 mm[Hg] Shawna Rumschlag DO Work Phone: [facility] [employer] 10-22-2021 13:26-0400 Heart rate 85 /min Shawna Rumschlag DO Work Phone: [facility] [employer] 10-22-2021 13:26-0400 Respiratory rate 16 /min Shawna Rumschlag DO Work Phone: [facility] [employer] 10-22-2021 13:26-0400 SaO2% (BldA) [Mass fraction] 94 % Shawna Rumschlag DO Work Phone: [facility] [employer] 10-22-2021 13:26-0400 Systolic blood pressure 131 mm[Hg] Shawna Rumschlag DO Work Phone: [facility] [employer] 10-11-2021 23:48-0400 Body height 160 cm Daniel Adkins MD Work Phone: [facility] [employer] 10-11-2021 23:48-0400 Body mass index (BMI) [Ratio] 36.67 kg/m2 Daniel Adkins MD Work Phone: [employer] 10-11-2021 23:48-0400 Body temperature 98.6 [degF] Daniel Adkins MD Work Phone: [facility] [employer] 10-11-2021 23:48-0400 Body weight 93.89 kg Daniel Adkins MD Work Phone: [facility] [employer] 10-11-2021 23:48-0400 Diastolic blood pressure 88 mm[Hg] Daniel Adkins MD Work Phone: [facility] [employer] 10-11-2021 23:48-0400 Heart rate 97 /min Daniel Adkins MD Work Phone: [employer] 10-11-2021 23:48-0400 Respiratory rate 16 /min Daniel Adkins MD Work Phone: [facility] [employer] 10-11-2021 23:48-0400 SaO2% (BldA) [Mass fraction] 96 % Daniel Adkins MD Work Phone: [facility] [employer] 10-11-2021 23:48-0400 Systolic blood pressure 134 mm[Hg] Daniel [facility] MD [facility] Encounters Encounter Date Encounter Type Care Provider Facility Start: 04-28-2024 End: 04-28-2024 Office outpatient visit 25 minutes Mendez Cardoso DO Work Phone: [facility] Comment on above: Obstructive sleep ap austin (Primary Dx); Intolerance of continuous positive airway pressure (CPAP) ventilation; Body mass index 34.0-34.9, adult Start: 04-28-2024 End: 04-28-2024 ambulatory MENDEZ CARDOSO Not Available Start: 04-25-2024 End: 04-25-2024 Bamboo flowsheet Brittany Neville BRAND MARKETING COORDINATOR Work Phone: [facility] Start: 04-25-2024 End: 04-25-2024 Bamboo flowsheet Brittany Neville BRAND MARKETING COORDINATOR Work Phone: [facility] Start: 04-18-2024 End: 04-18-2024 Bamboo flowsheet Roel Shirlene DO Work Phone: [facility] Start: 04-18-2024 End: 04-18-2024 Bamboo flowsheet Roel Shirlene DO Work Phone: [facility] Start: 04-18-2024 End: 04-18-2024 Clinisync Result Encounter Roel Shirlene DO Work Phone: [facility] External Department Unsolicited Start: 04-18-2024 End: 04-18-2024 ambulatory ROEL SHIRLENE Not Available Start: 04-18-2024 End: 04-18-2024 Office outpatient visit 15 minutes Roel Garber DO Work Phone: [facility] Comment on above: Hormone imbalance; Hormone disorder; Toenail fungus Start: 04-13-2024 End: 04-14-2024 Telephone encounter Cleo Zambrano MD Work Phone: [facility] Comment on above: Prior Authorization Start: 04-07-2024 End: 04-07-2024 Bamboo flowsheet Cleo Zambrano MD Work Phone: [facility] Start: 04-07-2024 End: 04-07-2024 Bamboo flowsheet Cleo Zambrano MD Work Phone: [facility] Start: 04-07-2024 End: 04-07-2024 ambulatory CLEO ZAMBRANO Not Available Start: 04-07-2024 End: 04-07-2024 Office outpatient visit 25 minutes Cleo Zambrano MD Work Phone: [facility] Comment on above: Type 2 diabetes mine itus without complication, 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- Work Phone: [facility] Work Phone: Start: 03-09-2024 End: 03-09-2024 Departed Referred Rory Driver PHYSICAL SCIENCES PROFESSOR-BC Work Phone: [facility] Start: 02-29-2024 End: 03-03-2024 Refill Paula Sanderson MD Work Phone: [facility] Comment on above: Chronic rhinitis Start: 02-16-2024 End: 02-17-2024 Telephone encounter Cleo Zambrano MD Work Phone: [facility] Comment on above: Medication Problem Start: 02-09-2024 End: 02-09-2024 Subsequent hospital visit by physician Jan Olmstead PT [facility] Physical Therapy Start: 02-09-2024 [facility] Start: 02-01-2024 End: 02-01-2024 ambulatory Ugo Bourgeois MD Facility:[facility] Start: 01-26-2024 End: 01-26-[address] Start: 01-26-2024 End: 01-26-2024 Subsequent hospital visit by physician Tamar Silveira PT [facility] Physical Therapy Comment on above: Arrived Start: 01-21-2024 End: 01-21-2024 Patient encounter procedure Rory Driver PHYSICAL SCIENCES PROFESSOR-BC Work Phone: [facility] Work Phone: Start: 01-13-2024 End: 01-13-2024 Emergency department patient visit Lisette Perez Junior DO Work Phone: [facility] ED Comment on above: Dizziness (Primary D x) Start: 01-11-2024 End: 01-11-2024 ambulatory [facility] Start: 12-29-2023 End: 12-29-2023 Subsequent hospital visit by physician Tamar Silveira PT [facility] Physical Therapy Start: 12-21-2023 End: 12-21-2023 ambulatory [facility] Start: 12-15-2023 End: 12-15-[address] [facility] Start: 12-01-2023 End: 12-01-[address] [facility] Start: 11-30-2023 End: 11-30-2023 Ruddyboo flowsheet Brittany Neville NP Work Phone: [facility] Start: 11-30-2023 End: 11-30-2023 Bamboo flowsheet Brittany Gottijigna BRAND MARKETING COORDINATOR Work Phone: [facility] Start: 11-30-2023 End: 11-30-2023 Telephone encounter Brittany Gottijigna BRAND MARKETING COORDINATOR Work Phone: [facility] Start: 11-30-2023 End: 11-30-2023 ambulatory BRITTANY GOTTIJIGNA Not Available Start: 11-30-2023 End: 11-30-2023 Office outpatient visit 25 minutes Brittany Neville BRAND MARKETING COORDINATOR Work Phone: [facility] Comment on above: JADON (obstructive sle ep apnea) (Primary Dx); Tension headache; Chronic bilateral low back pain, unspecified whether sciatica present; Paresthesias Start: 11-17-2023 End: 11-17-2023 [facility] Start: 11-17-2023 End: 11-17-2023 Subsequent hospital visit by physician Tamar Silveira PT [facility] Physical Therapy Comment on above: Arrived Start: 11-16-2023 End: 11-16-2023 ambulatory Ugo Bourgeois MD Facility:[facility] Start: 10-20-2023 End: 10-20-2023 [facility] Start: 10-20-2023 End: 10-20-2023 Subsequent hospital visit by physician Jan Olmstead PT [facility] Physical Therapy Comment on above: Arrived Start: 10-08-2023 End: 10-08-2023 ambulatory ADAM PALMER [facility] Start: 10-06-2023 End: 10-07-2023 Emergency department patient visit [facility] Start: 10-05-2023 End: 10-05-2023 Emergency department patient visit [facility] Start: 10-05-2023 End: 10-05-2023 Emergency department patient visit [facility] Start: 09-22-2023 End: 09-22-2023 Subsequent hospital visit by physician Jan Olmstead PT [facility] Physical Therapy Start: 09-15-2023 End: 09-15-2023 ambulatory SHAWNA RUMSCHLAG [facility] Start: 09-07-2023 End: 09-07-2023 ambulatory [facility]CHLAG [facility] Start: 09-01-2023 End: 09-01-2023 ambulatory [facility]AWNA RUMSCHLAG [facility] Start: 08-26-2023 End: 08-26-2023 ambulatory SHAWNA RUMNAFISAG [facility] Start: 08-26-2023 End: 08-26-2023 Subsequent hospital visit by physician Kofi Villegas PT [facility] Physical Therapy Comment on above: Arrived Start: 08-21-2023 End: 08-21-2023 ambulatory SHAWNA RUMNAFISAG [facility] Start: 08-21-2023 End: 08-21-2023 Subsequent hospital visit by physician Jan Olmstead PT [facility] Physical Therapy Comment on above: Arrived Start: 08-13-2023 End: 08-13-2023 ambulatory LAILA LIEBERMAN Not Available Start: 08-11-2023 End: 08-11-2023 ambulatory [facility]AWNA EDWARG [facility] Start: 08-11-2023 End: 08-11-2023 Subsequent hospital visit by physician Jan Olmstead PT [facility] Physical Therapy Comment on above: Arrived Start: 08-04-2023 End: 08-04-2023 ambulatory SHAWNA RUMNAFISAG [facility] Start: 07-29-2023 End: 07-29-2023 ambulatory SHAWNA EDWARG [facility] Start: 07-14-2023 End: 07-14-2023 Subsequent hospital visit by physician Rebecca Skinner PT [facility] Physical Therapy Start: 07-07-2023 End: 07-07-2023 ambulatory SHAWNA RUMSCHLAG [facility] Start: 06-30-2023 End: 06-30-2023 ambulatory [facility]AWNA RUMSCHLAG [facility] Start: 06-17-2023 End: 06-17-2023 ambulatory SHAWNA RUMSCHLAG [facility] Start: 06-16-2023 End: 06-16-2023 ambulatory SHAWNA RUMSCHLAG [facility] Start: 06-04-2023 End: 06-04-2023 ambulatory SHAWNA RUMNFAISAG [facility] Start: 06-03-2023 End: 06-03-[address] [facility] Start: 06-02-2023 End: 06-02-2023 ambulatory FORTINO ROBLEDO [facility] Start: 06-02-2023 ambulatory SHAWNA Jin [facility] Start: 05-25-2023 Patient encounter procedure Brittany Neville BRAND MARKETING COORDINATOR Work Phone: [facility] Start: 05-25-2023 End: 05-25-2023 ambulatory ROEL GARBER Not Available Start: 05-21-2023 End: 05-21-2023 Patient encounter procedure [facility] Physician [facility] G[facility] Work Phone: Start: 05-21-2023 End: 05-21-2023 Patient encounter procedure [facility] Physician [facility] Work Phone: Start: 05-20-2023 End: 05-20-2023 ambulatory SHAWNAFELICIA VANNG [facility] Start: 05-19-2023 End: 05-19-2023 ambulatory SHAWNA EDWARG [facility] Start: 05-06-2023 End: 05-06-2023 ambulatory [facility] Start: 05-06-2023 End: 05-06-2023 Subsequent hospital visit by physician Rojas Altamirano PTA [facility] Physical Therapy Comment on above: Arrived Start: 05-05-2023 End: 05-05-2023 ambulatory SHAWNA RUMASHLEYLAG [facility] Start: 04-28-2023 End: 04-28-2023 ambulatory GAURAV SELLERS [facility] Start: 04-21-2023 End: 04-21-2023 ambulatory SHAWNA RUMNAFISAG [facility] Start: 04-20-2023 End: 04-20-2023 Emergency department patient visit [facility] ED Comment on above: Closed head injury, initial encounter (Primary Dx); Fall due to slipping on ice or snow, initial encounter; Acute cervical myofascial strain, initial encounter Start: 04-16-2023 ambulatory [facility] Facility :[facility] Start: 04-07-2023 End: 04-07-2023 ambulatory [facility] Start: 03-27-2023 End: 03-27-2023 ambulatory ZAC HANNA [facility] Start: 03-24-2023 End: 03-24-2023 ambulatory [facility] Start: 03-18-2023 Telephone encounter [facility] Start: 03-18-2023 End: 03-18-2023 ambulatory NON STAFF [facility] [employer] Other Start: 03-18-2023 Non-patient / Non-visit MD Selvin Blank Work Phone: [facility] G[facility] Work Phone: Start: 03-17-2023 End: 03-17-2023 ambulatory Jan Garg Other [place] [employer] Other Start: 03-17-2023 Telephone encounter [facility] Start: 03-16-2023 Encounter for genera l adult medical examination without abnormal findings [employer] [facility] Start: 03-16-2023 End: 03-16-2023 ambulatory [facility] Start: 03-10-2023 End: 03-10-2023 ambulatory [facility] Start: 03-10-2023 End: 03-10-2023 Subsequent hospital visit by physician Tamar Silveira PT [facility] Comment on above: Arrived Start: 03-05-2023 (FCCCWMNF/U) Weight Management f/u Gayathri Adams [facility] Start: 03-05-2023 End: 03-05-2023 ambulatory Gayathri Adams Other [employer] Other Start: 03-05-2023 Registered Recurring MD Monserrat Blank Work Phone: [facility] Work Phone: Start: 03-02-2023 End: 03-02-2023 Emergency department patient visit Sil Sullivan DO Work Phone: [facility] ED Comment on above: Constipation, unspec ified constipation type (Primary Dx) Start: 02-26-2023 End: 02-26-2023 ambulatory Jan Scovanner Other [employer] Other Start: 02-26-2023 Telephone encounter Jan Scovanner [facility] Start: 02-18-2023 End: 02-18-2023 ambulatory Jan Scovanner Other [employer] Other Start: 02-18-2023 Telephone encounter Jan Scovanner [facility] Start: 02-05-2023 End: 02-05-2023 ambulatory Jan Scovanner Other [employer] Other Start: 02-05-2023 Office outpatient vi sit 15 minutes Jan Scovanner [facility] Start: 01-15-2023 (FCCCWMNF/U) Weight Management f/u Gayathri Adams [facility] Start: 01-15-2023 End: 01-15-2023 ambulatory Gayathri Adams Other [employer] Other Start: 01-07-2023 End: 01-07-2023 ambulatory Jan Scovanner Other [employer] Other Start: 01-07-2023 Office outpatient vi sit 15 minutes Jan Scovanner [facility] Start: 09-25-2022 End: 01-16-2023 ambulatory HILARY GRANADO Facility[facility] Start: 09-25-2022 End: 01-15-2023 Recurring YUE GRANADO Kumar Bacilio [facility] Start: 09-17-2022 End: 09-17-2022 ambulatory Gayathri Adams Other [employer] Other Start: 09-17-2022 Telephone encounter Gayathri last [facility] Start: 08-28-2022 ([facility] RD FU) [facility] F/ 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 Tamar Sosa [facility] Start: 08-28-2022 End: 08-28-2022 ambulatory Tamar Sosa Other [employer] Other Start: 07-29-2022 [facility] Weight Management f/u Gayathri Angie [facility] Start: 07-29-2022 End: 07-29-2022 ambulatory Gayathri Brooklynludy Other [employer] Other Start: 05-20-2022 [facility] Weight Management f/u Gayathrikasia Adams [facility] Start: 05-20-2022 End: 05-20-2022 ambulatory Gayathrimarino Adams Other [employer] Other Start: 05-19-2022 End: 05-19-[address] ROEL GARBER . Facility:[facility] Start: 05-07-2022 End: 05-08-[address] DOCTOR ARREOLA Facility:[facility] Start: 04-09-2022 End: 04-09-2022 ambulatory Gayathrimarino Adams Other [employer] Other Start: 04-09-2022 Telephone encounter Gayathri last [facility] Start: 04-08-2022 ([facility] WMNI) WMN Init ial Provider Tamar Sosa [facility] Start: 04-08-2022 [facility] Weight Management f/u Gayathrikasia Adams [facility] Start: 04-08-2022 End: 04-08-2022 ambulatory Tamar Fitt Other [employer] Other Start: 02-26-2022 End: 02-26-2022 ambulatory Tamar Fitt Other [employer] Other Start: 02-26-2022 IBT FOR OBESITY GROU P 2-10 30M Tamar Fitt [facility] Start: 02-25-2022 (FCCWMNF/U) Weight Management f/u Gayathri Adams [facility] Start: 02-25-2022 End: 02-25-2022 ambulatory Gayathri Adams Other [employer] Other Start: 02-17-2022 End: 02-18-2022 ambulatory RORY [facility] Facility:[facility] Start: 01-29-2022 End: 01-30-2022 ambulatory JOY Reis [facility] Facility:[facility] Start: 01-14-2022 [facility] Start: 01-14-2022 End: 01-14-2022 ambulatory Gayathri Adams Other [employer] Other Start: 12-05-2021 End: 12-05-2021 ambulatory Gayathri Adams Other [employer] Other Start: 12-05-2021 Telephone encounter Gayathri Adams Nicholas last [facility] Start: 12-04-2021 End: 12-04-2021 ambulatory Gayathri Adams Other [employer] Other Start: 12-04-2021 Nutrition therapy Gayathri [facility] Start: 10-29-2021 End: 10-29-2021 ambulatory Yo Blank Other [employer] Other Start: 10-29-2021 Patient encounter procedure Yo Blank [facility] Start: 10-22-2021 End: 10-22-2021 Emergency department patient visit Shawna Dudley DO Work Phone: [facility] ED Comment on above: Acute diffuse otitis externa of left ear (Primary Dx) Start: 10-11-2021 End: 10-12-2021 Emergency department patient visit Daniel Adkins MD Work Phone: [facility] ED Comment on above: Pilonidal cyst (Prim romero Dx) Start: 11-21-2016 End: 11-26-2016 [facility] Procedures Date Procedure Procedure Detail Performing Clinician Start: 04-18-2024 MLR HEMOGLOBIN A1C Core y Shirlene DO Work Phone: Start: 04-07-2024 Gluc bld gluc mntr d ev cleared fda spec home use Cleo Zambrano MD Work Phone: Start: 01-13-2024 Urinalysis microscopic only Lisette J [...] ion [Identifier] in Cervix by Cyto stain Brittany Neville NP Work Phone: Start: 04-20-2023 Ct cervical spine w/ o contrast material M Octavio Urbina ACADEMIC SUPPORT DIRECTOR - BOOK AUTHOR Work Phone: Start: 04-20-2023 Ct head/brain w/o co ntrast material M Octavio Urbina ACADEMIC SUPPORT DIRECTOR - BOOK AUTHOR Work Phone: Start: 03-16-2023 Mammography Brittany Gregorio fredo BRAND MARKETING COORDINATOR Work Phone: Start: 08-30-2016 Cholecystectomy YUE PARISH Start: 01-03-2013 nasal surgery YUE ALVARENGA RS Tonsillectomy YUE GRANADO Plan of Treatment Date Care Activity Detail Author Start: 05-20-2027 Screening for malignant neoplasm of cervix [facility] Start: 05-24-2026 Screening for malignant neoplasm of cervix Pap Smear [facility] Start: 03-16-2025 Screening for malignant neoplasm of breast Breast cancer screen [facility] Start: 11-10-2024 End: 11-10-2024 Patient encounter procedure 11/10/2024 11:30 AM EDT Office Visit [facility] UROLOGY [address] [place] [address] Karen Cotter, ACADEMIC SUPPORT DIRECTOR - BOOK AUTHOR [address] [place] [address] [address] [place] [address] 1 year [facility] on above: 1 year [facility] Start: 08-04-2024 End: 08-04-2024 Patient encounter procedure 08/04/2024 10:30 AM EDT Office Visit [facility] ENDOCRINOLOGY [address] [place] [phone] Cleo Zambrano MD [address] [place] [address] [facility] Start: 05-26-2024 End: 05-26-2024 Patient encounter procedure 05/26/2024 11:00 AM EDT Office Visit [facility] [address] [place] [phone] Roel Garber, DO [address] [place] [address] [facility] Start: 05-04-2024 End: 05-04-2024 Patient encounter procedure 05/04/2024 8:20 AM EST Office Visit TIGRE MENDOZA [address] [place] [phone] Brittany Neville, BRAND MARKETING COORDINATOR [address] [place], [place] TIGRE M[facility] Start: 04-28-2024 End: 04-28-2024 Patient encounter procedure 04/28/2024 10:30 AM EST Office Visit NATALIIA RASMUSS[facility] [address] [place] [phone] Mendez Cardoso DO [address] [place] [address] NATALII[facility]YSUSKY Start: 04-25-2024 End: 04-25-2024 Patient encounter procedure 04/25/2024 9:00 AM EST Office Visit TIGRE [place] [address] [address] [place] [phone] Brittany Neville, JO ANN [address] [place], [place] [facility] [place] Start: 04-18-2024 End: 04-18-2025 C-peptide C-peptide Lab Routine Hormone imbalance Hormone disorder Expected: 04/18/2024 (Approximate), Expires: 04/18/2025 [facility] Comment on above: Expected: 04/18/2024 (Approximate), Expi res: 04/18/2025 Start: 04-18-2024 End: 04-18-2025 Cortisol free Cortisol, free Lab Routine Hormone imbalance Hormone disorder Expected: 04/18/2024 (Approximate), Expires: 04/18/2025 [facility] Comment on above: Expected: 04/18/2024 (Approximate), Expi res: 04/18/2025 Start: 04-18-2024 End: 04-18-2025 Glucose [Mass/volume] in Serum or Plasma Glucose, random Lab Routine Hormone imbalance Hormone disorder Expected: 04/18/2024 (Approximate), Expires: 04/18/2025 [facility] Comment on above: Expected: 04/18/2024 (Approximate), Expi res: 04/18/2025 Start: 04-18-2024 End: 04-18-2025 Insulin, total Insulin, total Lab Routine Hormone imbalance Hormone disorder Expected: 04/18/2024 (Approximate), Expires: 04/18/2025 [facility] Comment on above: Expected: 04/18/2024 (Approximate), Expi res: 04/18/2025 Start: 04-18-2024 End: 04-18-2025 Serotonin serum Serotonin serum Lab Routine Hormone imbalance Hormone disorder Expected: 04/18/2024 (Approximate), Expires: 04/18/2025 [facility] Comment on above: Expected: 04/18/2024 (Approximate), Expi res: 04/18/2025 Start: 04-18-2024 End: 04-18-2025 Thyroglobulin Thyroglobulin Lab Routine Hormone imbalance Hormone disorder Expected: 04/18/2024 (Approximate), Expires: 04/18/2025 [facility] Comment on above: Expected: 04/18/2024 (Approximate), Expi res: 04/18/2025 Start: 04-18-2024 End: 04-18-2025 Thyroglobulin Antibody Thyroglobulin Antibody Lab Routine Hormone imbalance Hormone disorder Expected: 04/18/2024 (Approximate), Expires: 04/18/2025 [facility] Comment on above: Expected: 04/18/2024 (Approximate), Expi res: 04/18/2025 Start: 04-18-2024 End: 04-18-2025 Thyrotropin [Units/volume] in Serum or Plasma [facility] Comment on above: Ordered: 04/18/2024 Expected: 04/18/2024 (Approximate), Expires: 04/18/2025 Start: 04-18-2024 End: 04-18-2024 Patient encounter procedure 04/18/2024 10:50 AM EST Office Visit [facility] OB [address] [place] [address] [place] [address] Roel Garber, [address] [place] [address] [facility] Start: 04-07-2024 End: 04-07-2025 25-hydroxyvitamin D3 [Mass/volume] in Serum or Plasma Vitamin D 25 hydroxy Total Lab Routine 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, unspecified whether skilled nursing insulin use (CMS/HCC) Expected: 04/07/2024 (Approximate), Expires: 04/07/2025 [facility] Work Phone: Comment on above: Expected: 04/07/2024 (Approximate), Expi res: 04/07/2025 Start: 04-07-2024 End: 04-07-2025 Lipid 1996 panel - Serum or Plasma Lipid panel Lab Routine 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, 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 (CMS/HCC) Expected: 04/07/2024 (Approximate), Expires: 04/07/2025 [facility] Comment on above: Expected: 04/07/2024 (Approximate), Expi res: 04/07/2025 Start: 04-07-2024 End: 04-07-2025 Microalbumin/Creatinine panel in random Urine Microalbumin / creatinine urine ratio Lab Routine 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, unspecified whether skilled nursing insulin use (CMS/HCC) Expected: 04/07/2024 (Approximate), Expires: 04/07/2025 [facility] Comment on above: Expected: 04/07/2024 (Approximate), Expi res: 04/07/2025 Start: 04-07-2024 End: 04-07-2025 Renal function panel Renal function panel Lab Routine 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, 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 (CMS/HCC) Expected: 04/07/2024 (Approximate), Expires: 04/07/2025 [facility] Comment on above: Expected: 04/07/2024 (Approximate), Expi res: 04/07/2025 Start: 03-24-2024 End: 03-24-2024 Patient encounter procedure 03/24/2024 3:00 PM EST Office Visit [facility]ALIIA MENDO[facility] [address] [place] [phone] Brittany Neville, JO ANN [address] [place] [address] Start: 03-17-2024 End: 03-17-2024 Patient encounter procedure 03/17/2024 9:20 AM EST Office Visit [facility] ENDOCRINOLOGY [address] [place] [address] Cleo Zambrano MD [address] [place] [address] [facility] ENDOCRINOLOGY Start: 03-16-2024 Screening for malignant neoplasm of breast Mammogram [facility] Start: 03-11-2024 End: 03-11-2024 Patient encounter procedure 03/11/2024 10:00 AM EST [facility] [place] [address] [place] [address] Mendez Cardoso, DO [address] [place] [address] [facility] Start: 03-09-2024 Group A Streptococcus Culture Group A Streptococcus Culture [facility] Start: 02-19-2024 End: 02-19-2024 Patient encounter procedure 02/19/2024 2:00 PM EST Office Visit [facility] [place] [address] [place] [address] Mendez Cardoso, DO [address] [place] [address] NATALIIA HAYSUSKY Start: 02-16-2024 End: 02-16-2024 Patient encounter procedure 02/16/2024 3:40 PM EST Office Visit [facility] [address] [facility] [phone] Brittany Neville, BRAND MARKETING COORDINATOR [address] [place] NATALIIA MENDOZA [facility] Start: 02-09-2024 End: 02-09-2024 Patient encounter procedure 02/09/2024 11:15 AM EST Appointment [facility] Physical Therapy [address] [place], [place] [address] Tamar Silveira, PT dry needling [facility] Physical Therapy Comment on above: dry needling Start: 01-26-2024 End: 01-26-2024 Patient encounter procedure 01/26/2024 8:00 AM EST Appointment [facility] Physical Therapy [address] [place], [place] [address] Tamar Silveira, PT dry needling [facility] Physical Therapy Comment on above: dry needling Start: 01-13-2024 End: 01-13-2024 Patient encounter procedure 01/13/2024 8:15 AM EST Office Visit [facility]OLOG[address] [place] [address] Georges [place] PAJuan ManuelC [address] [facility] [address] [phone] incontinence [facility] Comment on above: incontinence Start: 12-29-2023 End: 12-29-2023 Patient encounter procedure 12/29/2023 9:00 AM EDT Appointment [facility] Physical Therapy [address] [place], [place] [address] Tamar Silveira, PT NEEDLING [facility] Physical Therapy Comment on above: NEEDLING Start: 12-15-2023 End: 12-15-2023 Patient encounter procedure 12/15/2023 9:00 AM EDT Appointment [facility] Physical Therapy [address] [place] [id number] Tamar Silveira, PT NEEDLING [facility] Physical Therapy Comment on above: NEEDLING Start: 12-01-2023 End: 12-01-2023 Patient encounter procedure 12/01/2023 9:45 AM EDT Appointment [facility] Physical Therapy [address] [place] [phone] Tamar Silveira, PT NEEDLING [facility] Physical Therapy Comment on above: NEEDLING Start: 11-01-2023 Influenza vaccination Influenza Vaccine (#1) [facility] Start: 10-01-2023 Influenza vaccination Flu vaccine (#1) [facility] Start: 09-01-2023 End: 09-01-2023 Patient encounter procedure 09/01/2023 10:30 AM EDT Appointment [facility] Physical Therapy [address] [place], [place] [address] Osito Rowan [facility] Physical Therapy Start: 08-26-2023 End: 08-26-2023 Patient encounter procedure 08/26/2023 2:30 PM EDT Appointment [facility] Physical Therapy [address] [place], [place] [address] Kofi Villegas, PT [facility] Therapy Start: 08-18-2023 End: 08-18-2023 Patient encounter procedure 08/18/2023 9:45 AM EDT Appointment [facility] Physical Therapy [address] [place], [place] [address] Osito Rowan [facility] Physical Therapy Start: 08-11-2023 End: 08-11-2023 Patient encounter procedure 08/11/2023 1:15 PM EDT Appointment [facility] Physical Therapy [address] [place], [place] [address] Jan Olmstead, PT DRY [place] [facility] Physical Therapy Comment on above: DRY NEEDLING Start: 08-04-2023 End: 08-04-2023 Patient encounter procedure 08/04/2023 4:15 PM EDT Appointment [facility] Physical Therapy [address] [place], [place] [address] Osito Rowan [facility] Physical Therapy Start: 06-03-2023 End: 06-03-2023 Patient encounter procedure 06/03/2023 3:30 PM EDT Appointment [facility] Physical Therapy [address] [place], [place] [address] Osito Rowan [facility] Physical Therapy Start: 06-02-2023 End: 06-02-2023 Patient encounter procedure 06/02/2023 3:00 PM EDT Appointment [facility] Physical Therapy [address] [place], [place] [address] Rebecca Skinner, PT DRY NEEDLING- dont move coordinates with son's appt [facility] Physical Therapy Comment on above: DRY NEEDLING- dont move coordinates with son's appt Start: 05-23-2023 Hepatitis B vaccine (3 of 3 - Hep B Twinrix 3-dose series) Hepatitis B vaccine (3 of 3 - Hep B Twinrix 3-dose series) [facility] Start: 05-20-2023 End: 05-20-2023 Patient encounter procedure 05/20/2023 3:15 PM EDT Appointment [facility] Physical Therapy [address] [place], [place] [address] Rojas Altamirano PTA [facility] Physical Therapy Start: 05-19-2023 End: 05-19-2023 Patient encounter procedure 05/19/2023 12:45 PM EDT Appointment [facility] Physical Therapy [address] [place], [place] [address] Rebecca Skinner, PT DRY NEEDLING- dont move coordinates with son's apptDRY NEEDLING [facility] Physical Therapy Comment on above: DRY NEEDLING- dont move coordinates with son's apptDRY [place] Start: 05-05-2023 End: 05-05-2023 Patient encounter procedure [facility] Physical Therapy Comment on above: DRY NEEDLING DRY NEEDLING- dont m ove coordinates with son's appt Start: 04-21-2023 End: 04-21-2023 Patient encounter procedure [facility] Physical Therapy Comment on above: DRY NEEDLING DRY NEEDLING- dont m ove coordinates with son's appt Start: 04-07-2023 End: 04-07-2023 Patient encounter procedure 04/07/2023 2:15 PM EST Appointment [facility] Physical Therapy [address] [place] [id number] Rebecca Skinner, PT DRY [place] [facility] Physical Therapy Comment on above: DRY [place] Start: 03-24-2023 End: 03-24-2023 Patient encounter procedure 03/24/2023 2:15 PM EST Appointment [facility] Physical Therapy [address] [place] [phone] Rebecca Skinner, PT DRY [place] [facility] Physical Therapy Comment on above: DRY [place]LING Start: 03-19-2023 [facility] Start: 03-10-2023 End: 03-10-2023 Patient encounter procedure 03/10/2023 2:30 PM EST Appointment [facility] Physical Therapy [address] [place], [place] [address] Rebecca [facility]inner [facility] Start: 09-30-2022 [facility] Start: 10-31-2021 Influenza vaccination Flu vaccine (#1) [facility] Start: 09-03-2021 DTaP/Tdap/Td vaccine (1 - Tdap) DTaP/Tdap/Td vaccine (1 - Tdap) [facility] Start: 2020 Lipid panel Lipids [facility] Start: 09-25-2015 Diabetes screen Diabetes screen [facility] Start: 2010 Screening for malignant neoplasm of cervix [facility] Start: 2001 Screening for malignant neoplasm of cervix Pap smear [facility] Start: 09-25-1999 DTaP/Tdap/Td vaccine (1 - Tdap) DTaP/Tdap/Td vaccine (1 - Tdap) [facility] Start: 1998 Hepatitis C screening Hepatitis C screen [facility] Start: 09-25-1995 HIV screening [facility] screen [facility] Start: 1993 Varicella vaccine (1 of 2 - 13+ 2-dose series) Varicella vaccine (1 of 2 - 13+ 2-dose series) [facility] Start: 1992 Depression Screen Depression Screen [facility] Start: 1990 [facility] Start: 1981 Varicella vaccine (1 of 2 - 2-dose childhood series) Varicella vaccine (1 of 2 - 2-dose childhood series) [facility] Start: 03-27-1981 COVID-19 Vaccine (#1) COVID-19 Vaccine (#1) [facility] Start: 1980 Hepatitis B vaccine (1 of 3 - 3-dose series) Hepatitis B vaccine (1 of 3 - 3-dose series) [facility] DHEA-sulfate Lab Routine Hormone imbalance Hormone disorder Ordered: 04/18/2024 [facility] Comment on above: Ordered: 04/18/2024 EKG 12 Lead EKG 12 Lead ECG Routine 01/13/2024 2:59 PM EST Estella [facility] Estradiol Estradiol Lab Ro utine Hormone imbalance Hormone disorder Ordered: 04/18/2024 [facility] Work Phone: Comment on above: Ordered: 04/18/2024 Estrone Estrone Lab Rout ine Hormone imbalance Hormone disorder Ordered: 04/18/2024 [facility] Comment on above: Ordered: 04/18/2024 Ferritin [Mass/volum e] in Serum or Plasma Ferritin Lab Routine Hormone imbalance Hormone disorder Ordered: 04/18/2024 [facility] Comment on above: Ordered: 04/18/2024 Hemoglobin A1c/Hemoglobin.total in Blood Hemoglobin A1c Lab Routine Hormone imbalance Hormone disorder Ordered: 04/18/2024 [facility] Comment on above: Ordered: 04/18/2024 Progesterone Progesterone Lab Routine Hormone imbalance Hormone disorder Ordered: 04/18/2024 [facility] Comment on above: Ordered: 04/18/2024 Sex hormone binding globulin Sex hormone binding globulin Lab Routine Hormone imbalance Hormone disorder Ordered: 04/18/2024 [facility] Comment on above: Ordered: 04/18/2024 Streptococcus pyogen es [Presence] in Unspecified specimen by Organism specific culture [facility] T3, reverse T3, reverse Lab Routine Hormone imbalance Hormone disorder Ordered: 04/18/2024 [facility] Comment on above: Ordered: 04/18/2024 TESTOSTERONE, FREE TESTOSTERONE, FREE Lab Routine Hormone imbalance Hormone disorder Ordered: 04/18/2024 [facility] Comment on above: Ordered: 04/18/2024 Testosterone, free, total Testos terone, free, total Lab Routine Hormone imbalance Hormone disorder Ordered: 04/18/2024 [facility] Comment on above: Ordered: 04/18/2024 Thyroid peroxidase antibody Thyroid peroxidase antibody Lab Routine Hormone imbalance Hormone disorder Ordered: 04/18/2024 [facility] Comment on above: Ordered: 04/18/2024 Thyroxine (T4) free [Mass/volume] in Serum or Plasma T4, free Lab Routine Hormone imbalance Hormone disorder Ordered: 04/18/2024 [facility] Comment on above: Ordered: 04/18/2024 Triiodothyronine (T3 ) Free [Mass/volume] in Serum or Plasma T3, free Lab Routine Hormone imbalance Hormone disorder Ordered: 04/18/2024 [facility] Comment on above: Ordered: 04/18/2024 Vitamin D 1,25 dihydroxy Vitamin D 1,25 dihydroxy Lab Routine Hormone imbalance Hormone disorder Ordered: 04/18/2024 [facility] Comment on above: Ordered: 04/18/2024 Immunizations Immunization Date Immunization Notes Care Provider [facility] 12-07-2023 influenza, seasonal, injectable, preservative free Paula Sanderson MD Work Phone: [facility] 05-25-2023 hepatitis A and hepa titis B vaccine Paula Sanderson MD Work Phone: [facility] 12-22-2022 hepatitis A and hepa titis B vaccine Paula Sanderson MD Work Phone: [facility] 12-22-2022 Seasonal, quadrivale nt, recombinant, injectable influenza vaccine, preservative free Paula Sanderson MD Work Phone: [facility] 12-22-2022 influenza virus vacc ine, unspecified formulation Brittany Neville NP Work Phone: [facility] 06-23-2022 hepatitis A and hepa titis B vaccine Paula Sanderson MD Work Phone: [facility] 02-07-2022 Pneumococcal Conjuga te PCV 20 Paula Sanderson MD Work Phone: [facility] 12-23-2021 influenza, injectabl e, quadrivalent, preservative free Paula Sanderson MD Work Phone: [facility] 09-02-2021 TD(adult) unspecifie d formulation Paula Sanderson MD Work Phone: [facility] 12-24-2020 influenza, injectabl e, quadrivalent, preservative free Paula Sanderson MD Work Phone: [facility] 12-19-2019 influenza, injectabl e, quadrivalent, preservative free Paula Sanderson MD Work Phone: [facility] 12-19-2018 influenza, injectabl e, quadrivalent, preservative free Paula Sanderson MD Work Phone: [facility] 12-02-2017 influenza, injectabl e, quadrivalent, preservative free Paula Sanderson MD Work Phone: [facility] 12-02-2017 pneumococcal conjuga te vaccine, 13 valent Paula Sanderson MD Work Phone: [facility] 10-10-2016 influenza, seasonal, injectable, preservative free Paula Sanderson MD Work Phone: [facility] 12-19-2013 influenza virus vacc ine, live, attenuated, for intranasal use Paula Sanderson MD Work Phone: [facility] 12-03-2012 influenza virus vacc ine, whole virus Paula Sanderson MD Work Phone: [facility] 12-29-2011 influenza virus vacc ine, whole virus Paula Sanderson MD Work Phone: [facility] 12-23-2010 influenza virus vacc ine, whole virus Paula Sanderson MD Work Phone: [facility] 12-18-2008 influenza virus vacc ine, whole virus Paula Sanderson MD Work Phone: [facility] Payers Date Payer Category Payer Self-pay [id number] 2022 Unknown 2013 Medicaid [facility] MEDICAID [place] [id number] 2013-Present [address] [place] [address] [id number] 2013 Medicaid (Managed Care) [employer] [id number] 1980 Unknown [id number] 2.840.1.971170.3.579.2. 59 1980 Unknown [id number] 2.840.1.637844.3.579.2. 593 1980 Unknown [id number] 2.840.1.170923.3.579.2. 1980 Unknown [id number] 2.840.1.440777.3.579.2. 593 1980 Unknown [id number] 2.0.1.534013.3.579.2. 727 1980 Unknown [id number] 2.840.1.068582.3.579.2. 1285 1980 Unknown [id number] 2.840.1.368040.3.579.2. 1285 1980 Unknown [id number] 2.840.1.935781.3.579.2. 1285 1980 Unknown [id number] 04.17.830.1.124211.3.579.2. 1285 1980 Unknown [id number] 2.840.1.688887.3.579.2. 1285 1980 Unknown [id number] 2.840.1.915399.3.579.2. 1285 1980 Unknown [id number] 2.16840.1.550199.3.579.2. 1285 1980 Unknown [id number] 2.840.1.034101.3.579.2. 1285 1980 Unknown [id number] 2.16840.1.908768.3.579.2. 1286 1980 Unknown [id number] 2.16840.1.298034.3.579.2. 1285 1980 Unknown [id number] 2.16.840.1.007798.3.579.2. 1285 1980 Unknown [id number] 2.16840.1.390147.3.579.2. 1980 Unknown [id number] 2.16.840.1.212467.3.579.2. 1980 Unknown [id number] 2.840.1.417955.3.579.2. 1980 Unknown [id number] 2.840.1.086580.3.579.2. 1980 Unknown [id number] 2.840.1.550535.3.579.2. 1980 Unknown [id number] 2.840.1.758945.3.579.2. 1980 Unknown [id number] 2.840.1.283873.3.579.2. 1980 Unknown [id number] 2.840.1.493457.3.579.2. 1980 Unknown [id number] 2.840.1.664048.3.579.2. 1980 Unknown [id number] 2.16840.1.364968.3.579.2. 1980 Unknown [id number] 2.16840.1.389920.3.579.2. 1980 Unknown [id number] 2.16840.1.804398.3.579.2. 1980 Unknown [id number] 2.16840.1.952783.3.579.2. 1980 Unknown [id number] 2.16840.1.124522.3.579.2. 173 1980 Unknown [id number] 2.16.840.1.268620.3.579.2. 1980 Unknown [id number] 2.16.840.1.192092.3.579.2. 1980 Unknown [id number] 2.16.840.1.874670.3.579.2. 1980 Unknown [id number] 2.16.840.1.234047.3.579.2. 1980 Unknown [id number] 2.16840.1.702528.3.579.2. 1980 Unknown [id number] 2.16840.1.954939.3.579.2. 1980 Unknown [id number] 2.840.1.927876.3.579.2. 1980 Unknown [id number] 2.840.1.941523.3.579.2. 1980 Unknown [id number] 2.840.1.793984.3.579.2. 1980 Unknown [id number] 2.840.1.059471.3.579.2. 1980 Unknown [id number] 2.840.1.562358.3.579.2. 1980 Unknown [id number] 2.840.1.795407.3.579.2. 1980 Unknown [id number] 2.16840.1.233708.3.579.2. 1980 Unknown [id number] 2.16840.1.581599.3.579.2. 1980 Unknown [id number] 2.16840.1.249997.3.579.2. 1980 Unknown [id number] 2.16840.1.145629.3.579.2. 1980 Unknown [id number] 2.16.840.1.247992.3.579.2. 1980 Unknown [id number] 2.16.840.1.747120.3.579.2. 1980 Unknown [id number] 2.16.840.1.725116.3.579.2. 1980 Unknown [id number] 2.16840.1.233292.3.579.2. 1980 Unknown [id number] 2.16.840.1.516934.3.579.2. 1980 Unknown [id number] 2.840.1.260796.3.579.2. 1980 Unknown [id number] 2.840.1.700460.3.579.2. 1980 Unknown [id number] 2.840.1.678166.3.579.2. 1980 Unknown [id number] 2.840.1.066111.3.579.2. 1258 1980 Unknown [id number] 2.840.1.831307.3.579.2. 1258 1980 Unknown [id number] .840.1.885437.3.579.2. 1258 1980 Unknown [id number] 840.1.658186.3.579.2. 1258 1980 Unknown [id number] 2.16840.1.637432.3.579.2. 1258 1980 Unknown [id number] 2.16840.1.717052.3.579.2. 1259 1959 Medicaid [id number] Unknown [id number] 2.16840.1.253392.3.579.2. 531 Unknown [id number] 2.840.1.760812.3.579.2. 531 Unknown [id number] 2.840.1.025858.3.579.2. 531 Social History Date Type Detail Facility Start: 09-02-2017 End: 03-10-2023 Tobacco smoking status NHIS Never smoked tobacco [facility] Start: 09-02-2017 End: 03-10-2023 Tobacco use and exposure Smokeless tobacco non-user [facility] Phone: Start: 10-11-2021 End: 01-13-2024 Alcohol intake Current non-drinker of alcohol (finding) [facility] Phone: Start: 1980 Sex Assigned At Not on file B [facility] Phone: Start: 10-01-2021 End: 10-22-2021 Exposure to SARS-CoV-2 (event) Not sure [facility] Phone: Start: 10-11-2021 End: 04-28-2024 Sex Assigned At [facility] Tobacco smoking status Never [facility] Start: 10-11-2021 End: 04-28-2024 History of Social function [facility] Start: 1980 Sex Assigned At Female F [facility] How often to you hav e a drink containing alcohol? Never [facility] Start: 02-11-2024 End: 04-28-2024 Alcoholic beverage intake Lifetime non-drinker (finding) [facility] Start: 03-11-2024 Sex Patient sex un known (finding) [facility] Clinical Notes 10-22-2021 to 04-28-2024 Mendez Cardoso DO - 04/28/2024 10:30 AM Jasson Ribeiro LPN - 04/18/2024 10:50 AM ESTTelephone Encounter - Austin Perkins - 04/13/2024 1:29 PM Andrea Zambrano MD - 04/07/2024 10:00 AM EST Note Date & Type Note Facility 04-28-2024 History of Present illness Narrative Subjective Patient ID: Karma Banegas is a 43 y.o. female who presents for Sleep Apnea ([facility]) HPI 43-year-old white female presents today for evaluation of obstructive sleep apnea and CPAP intolerance. Under consideration for hypoglossal nerve stimulator placement. Review of Systems Patient has a history of obstructive sleep apnea and has failed CPAP. Also not having any benefit from BiPAP. Describes mild nasal congestion. Significant difficulty sleeping at night. Daytime somnolence. The rest of her review of systems is negative Allergies as of 04/28/2024 - Reviewed 04/28/2024 Allergen Reaction Noted Cephalexin Hives 07/14/2013 Metformin 04/15/2022 Citalopram 07/14/2013 Metformin and related 04/20/2023 Poison devorah extract 04/15/2022 Past Medical History: Diagnosis Date Anemia Attention deficit hyperactivity disorder (CMS/HCC) 04/27/2024 Bipolar disorder (CMS/[facility]) Body mass index (BMI) of 36.0 to 36.9 Cholecystitis 2017 Acute/chronic Chronic rhinitis Circadian rhythm sleep disorder, shift work type 04/27/2024 Controlled type 2 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, without long-term current use of insulin (CMS/[facility]) Disorder of sacrum 01/29/2023 Gastritis 2017 GERD (gastroesophageal reflux disease) Hyperlipemia (CMS/HCC) Impulse control disorder (CMS/HCC) 04/27/2024 Insertion of Nexplanon Iron deficiency anemia Kidney stones Macromastia 10/08/2023 Mass of upper outer quadrant of right breast 06/02/2023 Mixed bipolar affective disorder, moderate (CMS/HCC) 04/27/2024 OCD (obsessive compulsive disorder) (CMS/[facility]) Open wound of toe without complication 03/10/2023 PTSD (post-traumatic stress disorder) (CMS/HCC) Recurrent epistaxis Seasonal allergies Symptomatic mammary hypertrophy 06/02/2023 Type 2 diabetes mellitus with hyperglycemia (CMS/HCC) Umbilical hernia 2017 Vitamin D deficiency Current Outpatient Medications: albuterol HFA (Ventolin HFA) 90 mcg/act inhaler, Inhale 1 puff every 4 (four) hours if needed, Disp: , Rfl: ascorbic acid (Vitamin C) 500 MG tablet, Take 500 mg by mouth in the morning and 500 mg before bedtime., Disp: , Rfl: B Complex Vitamins (vitamin B complex) tablet, Take 1 tablet by mouth Daily, Disp: , Rfl: cholecalciferol (Vitamin D-3) 50 MCG (2000 UT) capsule, Take 2,000 Units by mouth in the morning., Disp: , Rfl: ciclopirox (Loprox) 0.77 % cream, APPLY TO THE AFFECTED AREA(S) TWICE DAILY, Disp: 90 g, Rfl: 0 cyclobenzaprine (Flexeril) 10 MG tablet, Take 10 mg by mouth 3 (three) times a day as needed for muscle spasms, Disp: , Rfl: diclofenac (Voltaren) 75 MG EC tablet, Take 75 mg by mouth 2 (two) times a day as needed, Disp: , Rfl: docusate sodium (Colace) 100 MG capsule, Take 300 mg by mouth in the morning., Disp: , Rfl: DULoxetine (Cymbalta) [address] capsule, Take 30 mg by mouth in the morning and 30 mg before bedtime. Do not crush or chew.., Disp: , Rfl: empagliflozin (Jardiance) 25 MG, Take 1 tablet (25 mg) by mouth Daily, Disp: 30 tablet, Rfl: 2 etonogestrel-eluting (Nexplanon) 68 mg contraceptive implant, Inject 68 mg under the skin 1 (one) time, Disp: , Rfl: famotidine (Pepcid) 40 MG tablet, Take 40 mg by mouth as needed at bedtime, Disp: , Rfl: fexofenadine (Ros) 180 MG tablet, Take 180 mg by mouth in the morning., Disp: , Rfl: FLUoxetine (PROzac) 60 MG tablet, Take 60 mg by mouth Daily, Disp: , Rfl: fluticasone (Flonase) 50 MCG/ACT nasal spray, Administer 1 spray into each nostril 1 (one) time each day at the same time, Disp: , Rfl: gabapentin (Neurontin) 300 MG capsule, 1 po 2-3 times a day., Disp: 90 capsule, Rfl: 2 lamoTRIgine (LaMICtal) 200 MG tablet, Take 200 mg by mouth in the morning., Disp: , Rfl: linaCLOtide (Linzess) 290 MCG capsule, Take 290 mcg by mouth in the morning. Take before meals. Do not crush or chew.., Disp: , Rfl: lurasidone (Latuda) 120 MG tablet, Take 80 mg by mouth Daily Take with food., Disp: , Rfl: meloxicam (Mobic) 15 MG tablet, Take 15 mg by mouth in the morning., Disp: , Rfl: metoprolol succinate XL (Toprol-XL) 25 MG 24 hr tablet, TAKE 1/2 (ONE-HALF) OF A TABLET BY MOUTH DAILY, Disp: , Rfl: Multiple Vitamin (Tab-A-Karely) tablet, Take 1 tablet by mouth in the morning., Disp: , Rfl: mupirocin (Bactroban) 2 % ointment, apply to left nose TWICE DAILY for 2 (TWO) weeks NEEDED, Disp: 15 g, Rfl: 2 naproxen (Naprosyn) 500 MG tablet, Take 500 mg by mouth in the morning and 500 mg in the evening. Take with meals., Disp: , Rfl: nystatin (Mycostatin) cream, Apply topically if needed, Disp: , Rfl: pioglitazone (Actos) 30 MG tablet, Take 1 tablet (30 mg) by mouth Daily, Disp: 30 tablet, Rfl: 3 predniSONE (Deltasone) 10 MG tablet, TAKE 3 TABLETS BY MOUTH DAILY FOR 4 DAYS then TAKE 2 TABLETS BY MOUTH DAILY FOR 4 DAYS then TAKE 1 TABLET BY MOUTH DAILY FOR 4 DAYS then TAKE 1/2 (ONE-HALF) OF A TABLET BY MOUTH DAILY FOR 4 DAYS, Disp: , Rfl: Probiotic Product (Align) capsule, Take 1 capsule by mouth in the morning., Disp: , Rfl: rizatriptan (Maxalt) 10 MG tablet, Take 10 mg by mouth 1 (one) time if needed, Disp: , Rfl: rosuvastatin (Crestor) 10 MG tablet, Take 10 mg by mouth in the morning., Disp: , Rfl: SUMAtriptan (Imitrex) 100 MG tablet, TAKE 1 TABLET BY MOUTH ONCE DAILY NEEDED for FOR MIGRAINE, Disp: 9 tablet, Rfl: 1 tamsulosin (Flomax) 0.4 MG 24 hr capsule, Take 0.4 mg by mouth Daily, Disp: , Rfl: terbinafine (LamISIL) 250 MG tablet, Take 250 mg by mouth Daily, Disp: , Rfl: Tirzepatide (Mounjaro) 2.5 MG/0.5ML solution auto-injector, Inject 2.5 mg under the skin every 7 (seven) days, Disp: 2 mL, Rfl: 3 traMADol (Ultram) 50 MG tablet, Take 50 mg by mouth Daily as needed, Disp: , Rfl: traZODone (Desyrel) 50 MG tablet, Take 50-100 mg by mouth at bedtime, Disp: , Rfl: Vyvanse 70 MG capsule, Take 70 mg by mouth in the morning., Disp: , Rfl: Past Surgical History: Procedure Laterality Date ANKLE SURGERY BACK SURGERY CHOLECYSTECTOMY 08/2016 Laparoscopic EGD 10/2016 with Bx NASAL SINUS SURGERY SHOULDER SURGERY Right TONSILLECTOMY UMBILICAL HERNIA REPAIR 08/2016 Social History Socioeconomic History Marital status: Spouse name: Not on file Number of children: Not on file Years of education: Not on file Highest education level: Not on file Occupational History Not on file Tobacco Use Smoking status: Never Smokeless tobacco: Never Substance and Sexual Activity Alcohol use: Never Drug use: Never Sexual activity: Yes control/protection: Implant Comment: nexplanon 03/10/2023 Other Topics Concern Not on file Social History Narrative Not on file Social Drivers of Health Financial Resource Strain: Not on file Food Insecurity: No Food Insecurity (10/05/2023) Received from [facility] Hunger Screening Within the past 12 months we worried whether our food would run out before we got money to buy more.: Never True Within the past 12 months the food we bought just didn't last and we didn't have money to get more.: Never True Transportation Needs: Not on file Physical Activity: Not on file Stress: Not on file Social Connections: Not on file Intimate Partner Violence: Not on file Housing Stability: Not on file Objective ENT Physical Exam General Examination: General overview: Normal, age-appropriate, no evidence of distress obese, BMI of 34.89 Head: Normocephalic, atraumatic Eyes: Pupils are equally round and reactive to light and accommodation, extraocular muscles are intact Ears: External ear architecture within normal limits, ear canals are patent, tympanic membranes are intact. Nose: External nose unremarkable, nares patent, septum intact, no evidence of congestion. Oral cavity: Mucosa moist, no evidence of ulcer, mass, or lesion Throat: Clear, indirect examination of the larynx is incomplete. Fiberoptic laryngoscopy Consent was obtained Anesthesia: Topical xylocaine with Afrin mixture sprayed into the nasal airways bilaterally. Procedure: A diagnostic flexible fiberoptic laryngoscopy was performed. The flexible fiberoptic laryngoscope was placed into the nasal airway and advanced to the nasopharynx. Further advancement is completed down to the level of the epiglottis. Examination of the larynx including both surfaces of the epiglottis, false vocal and true vocal cords, arytenoids, Examination reveals extensive evidence of supraglottic cobblestone change. There is posterior displacement of the tongue and some limited lateral collapse with Carrillo maneuver. Bilateral vocal cords have good motion. Bilateral piriform sinuses and base of tongue appear without lesion. Neck/thyroid: Neck supple, full range of motion, no cervical lymphadenopathy, no evidence of thyromegaly Lymph nodes: No cervical lymphadenopathy Skin: Warm and dry, no evidence of suspicious lesions, no rash Heart: No jugular venous distention, point of maximal impulse normal Lungs: Good air movement, no audible wheezing, no shortness of breath Chest: Normal shape and expansion Abdomen: Normal, soft, nontender, nondistended Musculoskeletal: Cervical spine normal, full range of motion Extremities: No clubbing, cyanosis, or edema Peripheral pulses: 2+ radial, 2+ carotid Neurologic: Alert and oriented, cranial nerves 2-12 are grossly intact Psych: Alert and oriented, normal affect, no evidence of distress Assessment/Plan Diagnoses and all orders for this visit: Obstructive sleep apnea Comments: will arrange for drug-induced sleep endoscopy Intolerance of continuous positive airway pressure (CPAP) ventilation Comments: we will continue CPAP at this time Body mass index 34.0-34.9, adult Comments: patient encouraged to continue efforts to lose weight Patient 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 female who presents for Discuss Hormones Patient presents today for Consult appointment. MEDICATIONS Current Outpatient Medications Medication Instructions albuterol HFA (Ventolin HFA) 90 mcg/act inhaler 1 puff, Every 4 hours PRN ascorbic acid (VITAMIN C) 500 mg, 2 times daily cholecalciferol (VITAMIN D-3) 2,000 Units, Daily ciclopirox (Loprox) 0.77 % cream APPLY TO THE AFFECTED AREA(S) TWICE DAILY cyclobenzaprine (FLEXERIL) 10 mg, 3 times daily PRN diclofenac (VOLTAREN) 75 mg, 2 times daily PRN docusate sodium (COLACE) 300 mg, Daily DULoxetine (CYMBALTA) 30 mg, 2 times daily empagliflozin (JARDIANCE) 25 mg, Oral, Daily famotidine (PEPCID) 40 mg, Nightly PRN fexofenadine (ROS) 180 mg, Daily FLUoxetine (PROZAC) 60 mg, Daily fluticasone (Flonase) 50 MCG/ACT nasal spray 1 spray, Every 24 hours gabapentin (Neurontin) 300 MG capsule 1 po 2-3 times a day. lamoTRIgine (LAMICTAL) 200 mg, Daily linaCLOtide (LINZESS) 290 mcg, Daily before breakfast lurasidone (LATUDA) 80 mg, Daily meloxicam (MOBIC) 15 mg, Daily metoprolol succinate XL (Toprol-XL) 25 MG 24 hr tablet TAKE 1/2 (ONE-HALF) OF A TABLET BY MOUTH DAILY Mounjaro 2.5 mg, Subcutaneous, Every 7 days Multiple Vitamin (Tab-A-Karely) tablet 1 tablet, Daily mupirocin (Bactroban) 2 % ointment apply to left nose TWICE DAILY for 2 (TWO) weeks NEEDED naproxen (NAPROSYN) 500 mg, 2 times daily with meals Nexplanon 68 mg, Once nystatin (Mycostatin) cream As needed pioglitazone (ACTOS) 30 mg, Oral, Daily predniSONE (Deltasone) 10 MG tablet TAKE 3 TABLETS BY MOUTH DAILY FOR 4 DAYS then TAKE 2 TABLETS BY MOUTH DAILY FOR 4 DAYS then TAKE 1 TABLET BY MOUTH DAILY FOR 4 DAYS then TAKE 1/2 (ONE-HALF) OF A TABLET BY MOUTH DAILY FOR 4 DAYS Probiotic Product (Align) capsule 1 capsule, Daily rizatriptan (MAXALT) 10 mg, Once as needed rosuvastatin (CRESTOR) 10 mg, Daily SUMAtriptan (Imitrex) 100 MG tablet TAKE 1 TABLET BY MOUTH 1 time NEEDED FOR MIGRAINE tamsulosin (FLOMAX) 0.4 mg, Daily terbinafine (LAMISIL) 250 mg, Daily traMADol (ULTRAM) 50 mg, Daily PRN traZODone (DESYREL) 50-100 mg, Nightly Vyvanse 70 mg, Daily ALLERGIES Allergies Allergen Reactions Cephalexin Hives Other Reaction(s): Other: See Comments, Unknown Shortness of breath, throat felt tight Other Reaction(s): Swelling of Lip/Tongue/Throat, hives Metformin Severe hypoglycemia Citalopram Other Reaction(s): Other: See Comments, Unknown palpitations Other Reaction(s): Palpitations, anaphylaxis Metformin And Related Other Reaction(s): Other (See Comments), Unknown Reaction Hypoglycemia Poison Devorah Extract PROBLEMS Active Ambulatory Problems Diagnosis Date Noted Acute cholecystitis 09/15/2016 Anemia 03/10/2023 Asthma ([facility]) 03/10/2023 Axillary lymphadenopathy 05/10/2020 Bilateral foot pain 03/10/2023 Cervical disc displacement 09/21/2017 Chronic rhinitis 03/10/2023 Disc displacement, lumbar 10/11/2018 Diverticulitis 03/10/2023 Intervertebral disc 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 12/02/2022 Lumbosacral spondylosis without myelopathy 07/22/2018 Obesity 03/10/2023 Primary osteoarthritis, left ankle and foot 03/10/2023 PTSD (post-traumatic stress disorder) ([facility]) 06/16/2018 Recurrent epistaxis 03/10/2023 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 ([facility]) 11/10/2017 Well woman exam with routine gynecological exam 05/25/2023 Type 2 diabetes mellitus with hyperglycemia ([facility]) 02/11/2024 Vitamin D deficiency, unspecified 02/11/2024 Hyperlipidemia, unspecified ([facility]) 02/11/2024 Resolved Ambulatory Problems Diagnosis Date Noted Hot flashes 03/10/2023 Postoperative abscess 09/28/2016 Open wound of toe without complication 03/10/2023 Disorder of sacrum 01/29/2023 Macromastia 10/08/2023 Mass of upper outer quadrant of right breast 06/02/2023 Symptomatic mammary hypertrophy 06/02/2023 Past Medical History: Diagnosis Date Bipolar disorder ([facility]) Body mass index (BMI) of 36.0 to 36.9 Cholecystitis 2016 Controlled type 2 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, without long-term current use of insulin ([facility]) Gastritis 2016 GERD (gastroesophageal reflux disease) Hyperlipemia (CMS/HCC) Insertion of Nexplanon Iron deficiency anemia Kidney stones OCD (obsessive compulsive disorder) (CMS/HCC) Seasonal allergies Umbilical hernia 2017 Vitamin D deficiency HISTORY PAST MEDICAL HISTORY SOCIAL HISTORY Past Medical History: Diagnosis Date Anemia Bipolar disorder (CMS/HCC) Body mass index (BMI) of 36.0 to 36.9 Cholecystitis 2017 Acute/chronic Chronic rhinitis Controlled type 2 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, without long-term current use of insulin ([facility]) Disorder of sacrum 01/29/2023 Gastritis 2017 GERD (gastroesophageal reflux disease) Hyperlipemia ([facility]/HCC) Insertion of Nexplanon Iron deficiency anemia Kidney stones Macromastia 10/08/2023 Mass of upper outer quadrant of right breast 06/02/2023 OCD (obsessive compulsive disorder) (CMS/[facility]) Open wound of toe without complication 03/10/2023 PTSD (post-traumatic stress disorder) ([facility]) Recurrent epistaxis Seasonal allergies Symptomatic mammary hypertrophy 06/02/2023 Type 2 diabetes mellitus with hyperglycemia ([facility]) Umbilical hernia 2017 Vitamin D deficiency Social History Tobacco Use Smoking status: Never Smokeless tobacco: Never Substance Use Topics Alcohol use: Never Drug use: Never FAMILY HISTORY Family History Problem Relation Name Age of Onset Melanoma Mother SURGICAL HISTORY Past Surgical History: Procedure Laterality Date ANKLE SURGERY BACK SURGERY CHOLECYSTECTOMY 08/2016 Laparoscopic EGD 10/2016 with Bx NASAL SINUS SURGERY SHOULDER SURGERY Right TONSILLECTOMY UMBILICAL HERNIA REPAIR 08/2016 REVIEW OF SYSTEMS Review of Systems: Review of Systems OBJECTIVE Objective: OBGyn Exam Vitals: Estimated body mass index is 38.79 kg/m as calculated from the following: Height as of 04/07/24: 5' 3 . Weight as of this encounter: 219 lb. BP: 138/84 No LMP recorded. Patient has had an implant. ASSESSMENT & PLAN ICD-10-CM 1. Hormone imbalance E34.9 Estradiol Estrone Cortisol, free DHEA-sulfate Sex hormone binding globulin Insulin, total Serotonin serum TSH T4, free T3, reverse Progesterone Vitamin D 1,25 dihydroxy Ferritin T3, free Thyroglobulin Thyroglobulin Antibody Thyroid peroxidase antibody T4 TESTOSTERONE, FREE Testosterone, free, total Hemoglobin A1c Glucose, random C-peptide Cortisol, free Insulin, total Serotonin serum Thyroglobulin Thyroglobulin Antibody T4 Glucose, random C-peptide 2. Hormone disorder E34.9 Estradiol Estrone Cortisol, free DHEA-sulfate Sex hormone binding globulin Insulin, total Serotonin serum TSH T4, free T3, reverse Progesterone Vitamin D 1,25 dihydroxy Ferritin T3, free Thyroglobulin Thyroglobulin Antibody Thyroid peroxidase antibody T4 TESTOSTERONE, FREE Testosterone, free, total Hemoglobin A1c Glucose, random C-peptide Cortisol, free Insulin, total Serotonin serum Thyroglobulin Thyroglobulin Antibody T4 Glucose, random C-peptide 3. Toenail fungus B35.1 Patient presents today to discuss hormones. Patient voiced that she has had an increase in fatigue, night sweats and yeast infections. Patient stated that the only time she noticed that yeast infections had decreased was when she was on Lamisol for her toenail. Patient is currently on Nexplanon and does not have cycles. Discussed hormone labs with patient and patient will have buderer panel drawn. Patient to follow up in office for annual and review labs. Documented by Bela Ribeiro LPN on behalf of: Roel Garber DO documented in this encounter [facility] 04-13-2024 Telephone encounter Note PA needed for shanda. Thank you! [facility] 04-13-2024 Miscellaneous Notes PA needed for shanda. Thank you! documented in this encounter [facility] 04-07-2024 History of Present illness Narrative Karma Banegas is a 43 y.o. female Cleo Zambrano MD presents with chief complaint of Diabetes HPI: IM : 04/2025 follow up visit on 04/07/2023, A1c 5.8, bg 115, on actos 30 mg daily, jardiance 25 mg daily, off vitctoza 1.8 mg daily due to supply. IM : 11/2023 follow up visit on 11/05/2023, A1c 5.4, bg 112, on actos 30 mg daily, jardiance 25 mg daily, on vitctoza 1.8 mg daily IM : 08/2023 follow up visit on 08/13/2023, A1c 5.5, , bg 111, on actos 30 mg daily, jardiance 25 mg daily, on vitctoza 1.8 mg daily IM : 04/2023 follow up visit on 04/16/2023, A1c 5.2, , bg 105, on actos 30 mg daily, jardiance 25 mg daily, Trulicity 3 mg weekly and wants to switch to ozempic IM : 11/2022 follow up visit on 12/16/2022, A1c 5.4, , bg 95, on actos 30 mg daily, jardiance 25 mg daily, Trulicity 3 mg weekly. IM : 08/2022 follow up visit on 09/09/2022, A1c 5.4, , bg 133, on actos 30 mg daily, jardiance 25 mg daily, ozepmic 1 mg weekly. IM : 04/2022 follow up visit on 05/13/2022 , A1c 5.3 , bg 11 , on actos 30 mg daily, jardiance 25 mg daily, ozepmic 1 mg weekly, lab TC 146, TG 105, HLD 48, LDL 77, VIT D 35, AL/CR 35 IM : 12/2021 follow up visit on 01/15/2022 , A1c 5.9 , bg 247 , on actos 30 mg daily, jardiance 25 mg daily, wants to be on ozepmic also IM : 06/2021 follow up visit on 07/15/2021 , A1c 6.4, bg 185 , on actos 30 mg daily, jardiance 25 mg daily IM : 12/2020 follow up visit on 01/15/2021, A1c 6.4, bg 215, on actos 30 mg daily, jardiance 25 mg daily, lab on 09/2020 TC 205, TG 145, HDL 46, LDL 130, GFR>60, C PEPTIDE 5.1, VIT D 32 IM : 09/2020 follow up visit on 10/16/2020, A1c 6.2, bg 128, on actos 30 mg daily, jardiance 25 mg daily, no new lab yet. HPI: 06/2020 New patient sent from [facility] for uncontrolled diabetes. A1c of 9.3 in early May and she said she was diagnosed with diabetes 6 months , started with metformin but made her sugars too low, so she stopped it. She has liver issues and she is following with GI soon. Total cholesterol 194, triglycerides 145, HDL 43, LDL 112. AST 98, ALT 141. Currently, she is on Actos 30 mg once daily only. No numbness, tingling in her feet. She had disorders. SUBJECTIVE: MEDICATIONS: Current Outpatient Medications Medication Instructions albuterol HFA (Ventolin HFA) 90 mcg/act inhaler 1 puff, Every 4 hours PRN ascorbic acid (VITAMIN C) 500 mg, 2 times daily cholecalciferol (VITAMIN D-3) 2,000 Units, Daily ciclopirox (Loprox) 0.77 % cream APPLY TO THE AFFECTED AREA(S) TWICE DAILY cyclobenzaprine (FLEXERIL) 10 mg, 3 times daily PRN diclofenac (VOLTAREN) 75 mg, 2 times daily PRN docusate sodium (COLACE) 300 mg, Daily DULoxetine (CYMBALTA) 30 mg, 2 times daily empagliflozin (JARDIANCE) 25 mg, Oral, Daily famotidine (PEPCID) 40 mg, Nightly PRN fexofenadine (ROS) 180 mg, Daily FLUoxetine (PROZAC) 60 mg, Daily fluticasone (Flonase) 50 MCG/ACT nasal spray 1 spray, Every 24 hours gabapentin (Neurontin) 300 MG capsule 1 po 2-3 times a day. lamoTRIgine (LAMICTAL) 200 mg, Daily linaCLOtide (LINZESS) 290 mcg, Daily before breakfast lurasidone (LATUDA) 80 mg, Daily meloxicam (MOBIC) 15 mg, Daily metoprolol succinate XL (Toprol-XL) 25 MG 24 hr tablet TAKE 1/2 (ONE-HALF) OF A TABLET BY MOUTH DAILY Mounjaro 2.5 mg, Subcutaneous, Every 7 days Multiple Vitamin (Tab-A-Karely) tablet 1 tablet, Daily mupirocin (Bactroban) 2 % ointment apply to left nose TWICE DAILY for 2 (TWO) weeks NEEDED naproxen (NAPROSYN) 500 mg, 2 times daily with meals Nexplanon 68 mg, Once nystatin (Mycostatin) cream As needed pioglitazone (ACTOS) 30 mg, Oral, Daily predniSONE (Deltasone) 10 MG tablet TAKE 3 TABLETS BY MOUTH DAILY FOR 4 DAYS then TAKE 2 TABLETS BY MOUTH DAILY FOR 4 DAYS then TAKE 1 TABLET BY MOUTH DAILY FOR 4 DAYS then TAKE 1/2 (ONE-HALF) OF A TABLET BY MOUTH DAILY FOR 4 DAYS Probiotic Product (Align) capsule 1 capsule, Daily rizatriptan (MAXALT) 10 mg, Once as needed rosuvastatin (CRESTOR) 10 mg, Daily SUMAtriptan (Imitrex) 100 MG tablet TAKE 1 TABLET BY MOUTH 1 time NEEDED FOR MIGRAINE tamsulosin (FLOMAX) 0.4 mg, Daily terbinafine (LAMISIL) 250 mg, Daily tiZANidine (ZANAFLEX) 8 mg, Oral, Nightly traMADol (ULTRAM) 50 mg, Daily PRN traZODone (DESYREL) 50-100 mg, Nightly Vyvanse 70 mg, Daily ALLERGIES: Allergies Allergen Reactions Cephalexin Hives Other Reaction(s): Other: See Comments, Unknown Shortness of breath, throat felt tight Other Reaction(s): Swelling of Lip/Tongue/Throat, hives Metformin Severe hypoglycemia Citalopram Other Reaction(s): Other: See Comments, Unknown palpitations Other Reaction(s): Palpitations, anaphylaxis Metformin And Related Other Reaction(s): Other (See Comments), Unknown Reaction Hypoglycemia Poison Devorah Extract Past Medical History: Diagnosis Date Anemia Bipolar disorder ([facility]) Body mass index (BMI) of 36.0 to 36.9 Cholecystitis 2016 Acute/chronic Chronic rhinitis Controlled type 2 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, without long-term current use of insulin ([facility]) Disorder of sacrum 01/29/2023 Gastritis 2017 GERD (gastroesophageal reflux disease) Hyperlipemia ([facility]) Insertion of Nexplanon Iron deficiency anemia Kidney stones Macromastia 10/08/2023 Mass of upper outer quadrant of right breast 06/02/2023 OCD (obsessive compulsive disorder) ([facility]) Open wound of toe without complication 03/10/2023 PTSD (post-traumatic stress disorder) ([facility]) Recurrent epistaxis Seasonal allergies Symptomatic mammary hypertrophy 06/02/2023 Type 2 diabetes mellitus with hyperglycemia ([facility]) Umbilical hernia 2017 Vitamin D deficiency Past Surgical History: Procedure Laterality Date ANKLE SURGERY BACK SURGERY CHOLECYSTECTOMY 08/2016 Laparoscopic EGD 10/2016 with Bx NASAL SINUS SURGERY SHOULDER SURGERY Right TONSILLECTOMY UMBILICAL HERNIA REPAIR 08/2016 REVIEW OF SYMPTOMS: 14 POINT OF SYSTEM REVIEWED AND NEGATIVE OBJECTIVE: Constitutional: Afebrile @ home; no weakness or night sweats SKIN: No change in skin color; no itching, rash or lesions; no hair loss; HEENT: No HAs or injury; no dizziness; No difficulty with vision; no eye pain, discharge or lesions; no hearing loss or difficulty; no nasal discharge, NECK: No pain, limitation of motion, lumps or swollen glands RESP: No cough, wheezing or difficulty breathing. No CP with breathing; CARDIO: No CP , SOB or fatigue, No edema, palpitations or dyspnea with exertion GI: No N/V/D or abd. pain; good appetite with no recent change. No heart burn, liver or gallbladder disease; no rectal bleeding or pain : No urinary pain , frequency or odor. MUSCULOSKELETAL: No muscle pain or cramps; no extremity weakness.No joint pain, stiffness, swelling or limitation of movement NEUROLOGY: No H/O seizures, stroke or fainting. No weakness, tremors. Hematology: No bleeding problems or excessive bruising ENDOCRINE: No increase in hunger, thirst or urination; admits compliance to medical management plan Feet: numbness tingling yes , ulcers or skin break no Lab Results Component Value Date HGBA1C 5.8 04/07/2024 Lab Results Component Value Date GLU 115 04/07/2024 GLU 112 (H) 01/13/2024 GLU 89 12/21/2023 Visit Vitals BP 122/82 Pulse 107 Resp 16 Ht 5' 3 Wt 222 lb SpO2 98% BMI 39.33 kg/m OB Status Implant Smoking Status Never BSA 2.12 m ASSESSMENT AND PLAN: Assessment/Plan Diagnoses and all orders for this visit: 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, 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 ([facility]) - POCT glycosylated hemoglobin (Hb A1C) docked device - POCT glucose manually resulted - Tirzepatide (Mounjaro) 2.5 MG/0.5ML solution auto-injector; Inject 2.5 mg under the skin every 7 (seven) days - empagliflozin (Jardiance) 25 MG; Take 1 tablet (25 mg) by mouth Daily - pioglitazone (Actos) 30 MG tablet; Take 1 tablet (30 mg) by mouth Daily - Vitamin D 25 hydroxy Total; Future - Microalbumin / creatinine urine ratio; Future - Lipid panel; Future - Renal function panel; Future We will continue with Jardiance 25 mg once a day, Actos 30 mg once a day, we will switch from Victoza to Mounjaro 2.5 mg once weekly, prescription sent. Vitamin D deficiency Weight gain Encounter for dietary consultation Diet and exercise reviewed with the patient Hyperlipemia, mixed ([facility]) Class 2 severe obesity due to excess calories with serious comorbidity and body mass index (BMI) of 39.0 to 39.9 in adult ([facility]) Follow up in about 4 months (around 08/05/2024). documented in this encounter [facility] 02-16-2024 Telephone encounter Note Pt would like ot know if you can try to get the ozempic approved again. She's gained 20lbs on trulicity. [facility] 02-16-2024 Miscellaneous Notes Pt would like ot know if you can try to get the ozempic approved again. She's gained 20lbs on trulicity. documented in this encounter [facility] 02-09-2024 History of Present illness Narrative [facility] Inpatient/Observation/Outpatient Rehabilitation Date: 02/09/2024 Patient Name: Karma Candelaria [...] encounter [facility] 01-13-2024 Hospital Discharge instructions Lisette Junior DO - 01/13/2024 5:40 PM EST Increase your fluid intake. Follow-up with your doctor to discuss your medications especially the gabapentin and cyclobenzaprine which can certainly make you feel tired and groggy all the time. The following attachments cannot be sent through Care Everywhere.Dizziness (Croatian)documented in this encounter [facility] [...] believes that the device is MRI compatible. [facility] 11-30-2023 Miscellaneous Notes I called Dr Brito's [...] Inspire device. Her BMI is 35.96, will [place] allow this BMI Her HST is from 04/2022, does need this updated Will she be able to have MRIs If all of this is ok we will send for Inspire consult We will need to call her with an update documented in this encounter [facility] 11-30-2023 Telephone encounter Note Please call Dr. Brito office and ask the following questions in regards to Inspire device. Her BMI is 35.96, will [place] allow this BMI Her HST is from 04/2022, does need this updated Will she be able to have MRIs If all of this is ok we will send for Inspire consult We will need to call her with an update [facility] 11-30-2023 History of Present illness Narrative Images from the original note [...] Medical History: Diagnosis Date Anemia Bipolar disorder ([facility]) Body mass index (BMI) of 36.0 to 36.9 Cholecystitis 2017 Acute/chronic Chronic rhinitis Controlled type 2 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, without long-term current use of insulin ([facility]) Gastritis 2017 GERD (gastroesophageal reflux disease) Hyperlipemia ([facility]) Insertion of Nexplanon Iron deficiency anemia Kidney stones OCD (obsessive compulsive disorder) ([facility]) Open wound of toe without complication 03/10/2023 PTSD (post-traumatic stress disorder) ([facility]) Recurrent epistaxis Seasonal allergies Umbilical hernia 2017 [...] on. She understands the risk of stroke, [place] and without wearing it. She states she [...] She did switch to a provider in [place]. They did change her zanaflex and mobic [...] and see if BMI of 36 with [place] is feasible for Inspire device, if it [...] was counseled on the risks of stroke, [place], and sudden with JADON, along with the need for compliance with the CPAP/BiPAP treatment. Return to clinic: 3 months documented in this encounter [facility] 10-20-2023 History of Present illness Narrative [facility] Outpatient Physical Therapy Daily Note Patient: aKrma Candelaria : 1980 CSN #: [id number] Referring Physician: Shawna Dudley DO Date: 10/20/2023 Treatment Diagnosis: LBP, cervical spine pain Onset Date: 02/18/23 PT Insurance Information: [employer] [facility] Total # of Visits Approved: 32 [...] LB area.-met Alf Goals Time Frame for Supplier Quality Manager Goals : 6 visits Supplier Quality Manager Goal 1: Pt will be independent and [...] to her job tasks - 40% improved. Supplier Quality Manager Goal 4: Pt kvng UE strength will be 5/5 without increasing pain complaints to assist in tolerance of lifting and carrying -PARTIALLY MET 4+/5 grossly. Minutes Tracking: Time In: 944 Time Out: 0 Minutes: 45 Timed Code Treatment Minutes: 43 Minutes Jan Olmstead PT, DPT, OCS, Cert. DN Date: 10/20/2023 documented in this encounter [facility] 09-22-2023 History of Present illness Narrative Physical Therapy Called to say [...] next appt. documented in this encounter [facility] 08-26-2023 History of Present illness Narrative [facility] Outpatient Physical Therapy Daily Note Patient: Karma Candelaria : 1980 CSN #: [id number] Referring Physician: Shawna Dudley DO Date: 08/26/2023 Diagnosis: Z76.89 - Persons encountering health services in other specified circumstances Treatment Diagnosis: pain in cervical and LB Onset Date: 02/18/23 PT Insurance Information: [employer] [facility] Total # of Visits Approved: 24 [...] the cervical area and her LB area.-met Supplier Quality Manager Goals Time Frame for Alf Goals : 6 visits Supplier Quality Manager Goal 1: Pt will be independent and [...] Date: 08/26/2023 documented in this encounter [facility] 08-21-2023 History of Present illness Narrative Physical Therapy Disregard the no show note on 08/17. This was added in error. [facility] Outpatient Physical Therapy Daily Note Patient: Karma Candelaria : 1980 CSN #: [id number] Referring Physician: Shawna Dudley DO Date: 08/21/2023 Treatment Diagnosis: pain in cervical and LB Onset Date: 02/18/23 PT Insurance Information: [employer] Total # of Visits Approved: 24 Per [...] LB area. Alf Goals Time Frame for Alf Goals : 6 visits Alf Goal 1: Pt will be independent and compliant with exercise while maintaining improved posture 50% of the time. Supplier Quality Manager Goal 2: Pt will be able to perform full cervical ROM without increase complaints of baseline pain with initiation to demonstrate imporved control of pain. Supplier Quality Manager Goal 3: Pt will report 40% improvement in overall complaints and improved tolerance to her job tasks. Supplier Quality Manager Goal 4: Pt kvng UE strength will be 5/5 without increasing pain complaints to assist in tolerance of lifting and carrying. Minutes Tracking: Time In: 1045 Time Out: 1116 Minutes: 31 Timed Code Treatment Minutes: 29 Minutes Jan Olmstead PT, DPT Date: 08/21/2023 documented in this encounter [facility] 08-11-2023 History of Present illness Narrative [facility] Outpatient Physical Therapy Daily Note Patient: Karma Candelaria : 1980 [facility] #: [id number] Referring Physician: Shawna Dudley DO Date: 08/11/2023 Diagnosis: Z76.89 - Persons encountering health services in other specified circumstances Treatment Diagnosis: pain in cervical and LB Onset Date: 02/18/23 PT Insurance Information: [facility] Total # of Visits Approved: [...] LB area. Alf Goals Time Frame for Supplier Quality Manager Goals : 6 visits Alf Goal 1: Pt will be independent and compliant with exercise while maintaining improved posture 50% of the time. Supplier Quality Manager Goal 2: Pt will be able to [...] DPT Date: 08/11/2023 documented in this encounter [facility] 07-14-2023 History of Present illness Narrative Physical Therapy [facility] Inpatient/Observation/Outpatient Rehabilitation Date: 07/14/2023 Patient Name: [...] does not require skilled services due to: Therapist/Customer Support Advisor will attempt to see this patient, at our earliest opportunity. Filomena Raphael Date: 07/14/2023 documented in this encounter [facility] 04-20-2023 Hospital Discharge instructions Precious Urbina APRN - CNP - 04/20/2023 1:50 PM EST Increase fluid Tylenol Motrin for cough Continue home medications The following attachments cannot be sent through Care Everywhere.Head Injury: Closed: General Info (Croatian)Cervical Strain (Croatian)documented in this encounter [facility] 03-05-2023 Evaluation note Encounter Date Diagnosis Assessment [...] was counseling done by myself, Rhina ROBERTSON. [employer] Other 01-01-2024 Hospital Discharge instructions* Discharge Instructions* Sil Sullivan DO - 03/02/2023 7:49 PM EST Please follow-up with your GI doctor, trial enema at home, return to the ER for worsening abdominalpain, inability to pass gas, or nausea, vomiting * Attachments The following attachments cannot be sent through Care Everywhere. * Constipation (Croatian) [facility]* Encounter Date Diagnosis Assessment Notes Treatment Notes Treatment Clinical Notes Jan, Constipation, unspecified constipation type (ICD-10 - K59.00) Jan, Constipation (ICD-10 - K59.00) [facility] Other 12-07-2023 Evaluation note* Encounter Date Diagnosis Assessment Notes [...] R10.9) Jan, Rectal bleed (ICD-10 - K62.5) [facility] Other 11-16-2023 Evaluation note* Encounter Date Diagnosis [...] was counseling done by myself, Rhina ROBERTSON. [employer] Other 11-08-2023 Evaluation note* Encounter Date Diagnosis [...] HAVE PATIENT START DOCUSATE 3 CAPSULES DAILY. [facility] Other 06-29-2023 Evaluation note* Encounter Date Diagnosis Assessment Notes Treatment Notes Treatment Clinical Notes Jul, Obesity (ICD-10 - E66.9) Jul, BMI 34.0-34.9,adult (ICD-10 - Z68.34) Jul, Other Summary of Visi t: (A) discussed continuing to work on small goals until stress decreases and she has the energy to increase goals (B) discussed healhtier choices at [employer]- food blog reviewed (C) reviewed food storage tips for keeping produce fresh longer Patient set the following goals: - NEW: continue to choose sugar free beverages- not reviewed [facility] Other 05-30-2023 Evaluation note* Encounter Date Diagnosis [...] was counseling done by myself, Rhina ROBERTSON. [employer] Other 03-21-2023 Evaluation note* Encounter Date Diagnosis [...] was counseling done by myself, Rhina ROBERTSON. [employer] Other 02-07-2023 Evaluation note* Encounter Date Diagnosis [...] set the following goals: not reviewed today [facility] Other 02-07-2023 Evaluation note* Encounter Date Diagnosis [...] was counseling done by myself, Rhina ROBERTSON. [employer] Other 12-28-2022 Evaluation note* Encounter Date Diagnosis [...] patient set personal goal using given handout. [employer] Other 12-27-2022 Evaluation note* Encounter Date Diagnosis [...] was counseling done by myself, Rhina ROBERTSON. [employer] Other 12-01-2022 NotePROCEDURE: XR ANKLE LT MIN [...] Electronically authenticated by: ONEL CLARK Date: 2022-01-29 22:30[facility]12-01-2022 NotePROCEDURE: XR ANKLE LT MIN [...] Electronically authenticated by: ONEL CLARK Date: 2022-01-29 22:30[facility]11-15-2022 Evaluation note* Encounter Date Diagnosis [...] was counseling done by myself, Rhina ROBERTSON. [place] [employer] Other 10-05-2022 Evaluation note* Encounter Date Diagnosis [...] was counseling done by myself, Rhina ROBERTSON. [employer] Other 08-30-2022 Evaluation note* Encounter Date Diagnosis Assessment Notes Treatment Notes Treatment Clinical Notes Sep, Fatty liver (ICD-10 - K76.0) ENCOURAGED WEIGHT LOSS Sep, Obesity (BMI 30-39.9) (ICD-10 - E66.9) [facility] [id number] Other 08-23-2022 Hospital Discharge instructions* Discharge Instructions* Stanley Almonte PA-C - 10/22/2021 2:03 PM EDT Follow-up with primary care doctor 7 to 10 days for reevaluation. Take Motrin 800 mg as directed with food. Start eardrops left ear as directed. Promptly return to emergency department for new, changing or worsening of symptoms or other concerns. [facility] [employer] Work Phone: evaluation + Plan note No data available for this section [facility]* Diagnosis Pilonidal cyst- Primary Pilonidal cyst without mention of abscess documented in this encounter [employer] Phone: [email or web address] note* Diagnosis Acute diffuse otitis externa of left ear- Primary documented in this encounter [employer] Phone: [email or web address] noteNo InformationN[facility]Einstein [facility] [employer] Other Evaluation note* Diagnosis Constipation, unspecified constipation type- Primary documented in this encounter [facility] [employer] noteNo assessment information available [facility] Work Phone: Evaluation note* Diagnosis Closed head injury, initial encounter- Primary Fall due to slipping on ice or snow, initial encounter Acute cervical myofascial strain, initial encounter documented in this encounter [employer] note* Diagnosis Onset Date Resolution Status ADHD acute BMI 36.0-36.9,adult acute Constipation acute Diabetes mellitus with hyperglycemia acute Fatty liver acute IBS (irritable bowel syndrome) acute Obesity acute Shifting sleep-work schedule, affecting sleep acute Constipation acute Elevated liver function tests acute Fatty liver acute IBS (irritable bowel syndrome) acute [facility] Work Phone: Evaluation note* Diagnosis Dizziness- Primary Dizziness and giddiness documented in [facility]* Diagnosis JADON (obstructive sleep apnea)- Primary Obstructive sleep apnea (adult) (pediatric) Tension headache Chronic bilateral low back pain, unspecified whether sciatica present Paresthesias Disturbance of skin sensation documented in this encounter [facility]* Diagnosis JADON (obstructive sleep apnea)- Primary Obstructive sleep apnea (adult) (pediatric) documented in this encounter [facility]* Diagnosis Chronic rhinitis documented in this encounter [facility] HealthcareEvaluation note* Diagnosis 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, unspecified whether skilled nursing insulin use ([facility])- Primary Vitamin D deficiency Weight gain Other symptoms concerning nutrition, metabolism, and development Encounter for dietary consultation Hyperlipemia, mixed ([facility]) Mixed hyperlipidemia Class 2 severe obesity due to excess calories with serious comorbidity and body mass index (BMI) of 39.0 to 39.9 in adult ([facility]) documented in this encounter [facility]* Diagnosis Hormone imbalance Hormone disorder Unspecified endocrine disorder Toenail fungus documented in this encounter [facility] Healthcare[facility] note* Diagnosis Obstructive sleep apnea- Primary Obstructive sleep apnea (adult) (pediatric) Intolerance of continuous positive airway pressure (CPAP) ventilation Body mass index 34.0-34.9, adult Body Mass Index 34.0-34.9, adult [facility] N[facility] - Reported* Type Description Date Medical History PTSD Medical History DIVERTICULITOUS Surgical History 2 BACK INJECTIONS 2014 Surgical History LEFT ANKLE 2002 Surgical History CHOLECYSTECTOMY Hospitalization History SEE ABOVE [employer] Other History general Narrative - Reported* Type Description Date Medical History PTSD Medical History DIVERTICULITOUS Medical History bipolar Medical History ADHD Surgical History 2 BACK INJECTIONS 2014 Surgical History LEFT ANKLE 2002 Surgical History CHOLECYSTECTOMY Surgical History nasal surgery Hospitalization History SEE ABOVE [facility] Other History general Narrative - Reported* Type Description Date Medical History PTSD Medical History DIVERTICULITOUS Medical History bipolar Medical History ADHD Surgical History 2 BACK INJECTIONS 2014 Surgical History LEFT ANKLE 2002 Surgical History CHOLECYSTECTOMY Surgical History nasal surgery Surgical History right Rotator surgery 05-15-22 Hospitalization History SEE ABOVE [facility] Other History general Narrative - Reported* Type Description Date Medical History PTSD Medical History DIVERTICULITOUS Medical History bipolar Medical History ADHD Medical History rotator cuff tear Surgical History 2 BACK INJECTIONS 2014 Surgical History LEFT ANKLE 2001 Surgical History CHOLECYSTECTOMY Surgical History nasal surgery Surgical History right Rotator surgery 05-15-22 Hospitalization History SEE ABOVE [facility] Other [facility] general Narrative - Reported* Type Description Date Medical History PTSD Medical History DIVERTICULITOUS Medical History bipolar Medical History ADHD Medical History rotator cuff tear Surgical History 2 BACK INJECTIONS 2014 Surgical History LEFT ANKLE 2001 Surgical History CHOLECYSTECTOMY Surgical History nasal surgery Surgical History right Rotator surgery 05-15-22 Surgical History Neck injections/root burnt 12/31 Hospitalization History SEE ABOVE [facility] Other [facility] general Narrative - Reported* Type Description Date Medical History PTSD Medical History DIVERTICULITOUS Medical History bipolar Medical History ADHD Medical History rotator cuff tear Surgical History 2 BACK INJECTIONS 2014 Surgical History LEFT ANKLE 2001 Surgical History CHOLECYSTECTOMY Surgical History nasal surgery Surgical History right Rotator surgery 05-15-22 Surgical History Neck injections/root burnt 12/31 Hospitalization History SEE ABOVE [facility] Other Hospital Discharge instructions* Attachments The following attachments cannot be sent through Care Everywhere. * Pilonidal Abscess (Croatian) [facility] Work Phone: Hospital Discharge instructions No data available for this section [facility] No data available for this section [facility] GeneralReason for referral (narrative)* Consultation (Routine) - Pending Review Specialty Diagnoses / Procedures Referred By Karla cuadra Referred To Contact Otolaryngology Diagnoses JADON (obstructive sleep apnea) Procedures [place] OFFICE/OUTPATIENT NEW HIGH MDM 60 MINUTES Brittany Neville NP [address] [facility] [address] [place] [address] Referral ID Status Reason Start Date Expiration Date Visits Requested Visits Authorized [id number] Pending Review Specialty Services Required 11/30/2023 05/28/20[address] Brito for Inspire device. [facility] Summary Purpose Family History No Family History [...] Unknown Advance Directives No Advanced Directives Records Found Advance Directive Response Recorded Date/ Time Advance Directives No July 18 8:24am Advance Directive Response Recorded Date/ Time Advance [...] CREATED AUTHOR AUTHOR'S ORGANIZ ATION [facility]20[facility] DATE CREATED AUTHOR AUTHOR'S ORGANIZ ATION 01/18/2023 [facility] DATE CREATED AUTHOR AUTHOR'S ORGANIZ ATION 06/04/2023 [facility] DATE CREATED AUTHOR AUTHOR'S ORGANIZ ATION 10/10/2023 [facility] DATE CREATED AUTHOR AUTHOR'S ORGANIZ ATION 12/22/2023 [facility] DATE CREATED AUTHOR AUTHOR'S ORGANIZ ATION 02/05/2024 [facility] DATE CREATED AUTHOR AUTHOR'S ORGANIZ ATION 02/12/2024 Ann[facility] DATE CREATED AUTHOR AUTHOR'S ORGANIZ ATION 03/15/2024 [facility] DATE CREATED AUTHOR AUTHOR'S ORGANIZ ATION 04/30/2024 [facility] EPIC Reason for Visit (unrecogniz ed section and [...] in her jaw. Reason Comments Constipation Reason Comments Fall Patient slipped on i ce last night and hit head, states sore everywhere, Denies LOC or vomiting. States she is getting a migraine but states she did not take any of her medications because she wanted to be checked first. 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 Reason Onset Date Comments Medication Problem 02/16/2024 Reason Comments Sleep Apnea Headache Numbness Reason Comments Med Refill Reason Comments Diabetes Reason Onset Date Comments Prior Authorization 04/13/2024 Reason Comments Discuss Hormones Reason Comments Sleep Apnea Inspire Consult Ordered Prescriptions (unrec ognized section and content) Prescription Sig Dispensed Refills Start Date End Da te clindamycin (CLEOCIN) 150 MG capsule Take 3 capsules by mouth in the morning and 3 capsules at noon and 3 capsules before bedtime. Do all this for 10 days. 90 capsule 0 10/12/2021 10/22/2021 Prescription Sig Dispensed Refills Start Date End Da te xhzufazf-kalafhqef-kmrdiu ortisone (CORTISPORIN) 3.5-43408-[address] 4 drops into the [...] Care Teams (unrecognized sec tion and content) Hostel Parent Relationship Specialty Start Date End Date Rumashleylag, Shawna, DO [address] [place] [address] PCP - General Family Medicine 10/12/21 Hostel Parent Relationship Specialty Start Date End Date Rumschlag Shawna, DO [address] [place] [address] PCP - General Family Medicine 10/12/21 Hostel Parent Relationship Specialty Start Date End Date Rumschlag, Shawna, DO [address] [place] [address] PCP - General Family Medicine 10/12/21 Hostel Parent Relationship Specialty Start Date End Date Rumschlag Shawna, DO [address] [place] [address] PCP - General Family Medicine 10/12/21 Team Status: Active Member Role Status Dates [...] Care Provider Active Start: March 18, 2023 Hostel Parent Relationship Specialty Start Date End Date Rumashleylag, Shawna, DO [address] [place] [address] PCP - General Family Medicine 10/12/21 Hostel Parent Relationship Specialty Start Date End Date Rumschlag, Shawna, DO [address] [place] [address] PCP - General Family Medicine 10/12/21 Team Status: Active Member Role Status Dates Rory Driver , [facility] Primary Care Provider Active Team Status: Inactive Member Role Status Dates Gayathri Adams APRN Attending Provider Active Start: May 21, 2023 End: May 21, 2023 Rory Driver , [facility] Primary Care Provider Active Start: May 21, 2023 End: May 21, 2023 Team Status: Inactive Member Role Status Dates Jan Garg APRN Attending Provider Active Start: May 21, 2023 End: May 21, 2023 Rory Driver , [facility] Primary Care Provider Active Start: May 21, 2023 End: May 21, 2023 Hostel Parent Relationship Specialty Start Date End Date Shawna Dudley DO [address] [place] [address] PCP - General Family Medicine 10/12/21 Hostel Parent Relationship Specialty Start Date End Date Shawna Dudley DO [address] [place] [address] PCP - General Family Medicine 10/12/21 Hostel Parent Relationship Specialty Start Date End Date Loreto Mcneal ACADEMIC SUPPORT DIRECTOR - BRAND MARKETING COORDINATOR [address] [place] [address] PCP - General 11/11/23 Hostel Parent Relationship Specialty Start Date End Date Loreto Mcneal, ACADEMIC SUPPORT DIRECTOR - BRAND MARKETING COORDINATOR [address] [place] [address] PCP - General 11/11/23 Hostel Parent Relationship Specialty Start Date End Date Loreto Mcneal ACADEMIC SUPPORT DIRECTOR - BRAND MARKETING COORDINATOR [address] [place] [address] PCP - General 11/11/23 Hostel Parent Relationship Specialty Start Date End Date Fredis LoretoCONCETTA - BRAND MARKETING COORDINATOR [address] [place] [address] [place] [address] PCP - General 11/11/23 Hostel Parent Relationship Specialty Start Date End Date Shawna Dudley, [address] [place], [place] [id number] PCP - General Family Medicine 04/14/22 Key Andrea NP [address] [place] [address] Referring Physician Family Medicine 08/13/23 Hostel Parent Relationship Specialty Start Date End Date Key Andrea NP [address] [place] [address] Referring Physician Family Medicine 08/13/23 Hostel Parent Relationship Specialty Start Date End Date Key Andrea NP [address] [place] [address] Referring Physician Family Medicine 08/13/23 Hostel Parent Relationship Specialty Start Date End Date Key Andrea NP [address] [place] [address] Referring Physician Family Medicine 08/13/23 Hostel Parent Relationship Specialty Start Date End Date Shawna Dudley, [address] [facility] [place] [address] PCP - General Family Medicine 04/14/22 Key Andrea NP [address] [place] [address] Referring Physician Family Medicine 08/13/23 Team Status: Inactive Member Role Status Dates Rory Driver , [facility] Primary Care Provider Active Start: January 21, 2024 End: January 21, 2024 MELE Best Attending Provider Active Start: January 21, 2024 End: January 21, 2024 Team Status: Inactive Member Role Status Dates Rory Driver , [facility] Primary Care Provider Active Start: March 09, 2024 End: March 09, 2024 Mio Marroquin DO Attending Provider Active S tart: March 09, 2024 End: March 09, 2024 Hostel Parent Relationship Specialty Start Date End Date Vicky Dudleyty, DO [address] [place] [address] PCP - General Family Medicine 04/14/22 Key Andrea NP [address] [place] [address] Referring Physician Family Medicine 08/13/23 Hostel Parent Relationship Specialty Start Date End Date Vicky Dudleyty, DO [address] [facility] [place] [address] PCP - General Family Medicine 04/14/22 Key Andrea, BRAND MARKETING COORDINATOR [address] [place] [address] Referring Physician Family Medicine 08/13/23 Hostel Parent Relationship Specialty Start Date End Date Vicky Dudleyty, DO [address] [place] [address] PCP - General Family Medicine 04/14/22 Key Andrea, BRAND MARKETING COORDINATOR [address] [place] [address] Referring Physician Family Medicine 08/13/23 Hostel Parent Relationship Specialty Start Date End Date Shawna Dudley DO [address] [place], [place] [id number] PCP - General Family Medicine 04/14/22 Key Andrea, BRAND MARKETING COORDINATOR [address] [place] [phone] Referring Physician Family Medicine 08/13/23 Hostel Parent Relationship Specialty Start Date End Date Shawna Dudley DO [address] [place], [place] [id number] PCP - General Family Medicine 04/14/22 Key Andrea, BRAND MARKETING COORDINATOR [address] [place] [phone] Referring Physician Family Medicine 08/13/23 Hostel Parent Relationship Specialty Start Date End Date Shawna Dudley DO [address] [place], [place] [id number] PCP - General Family Medicine 04/14/22 Key Andrea, BRAND MARKETING COORDINATOR [address] [place] [address] [phone] Referring Physician Family Medicine 08/13/23 Goals (unrecognized section and content) Goals may [...] BE BASED ON THE PRIMARY CLINICAL RECORDS. [employer] provides no warranty or guarantee of the accuracy or completeness of information in this document.
[2024-05-09 07:20] LABS: Glucometer 145 mg/dL (74-106)
[2024-05-09 07:25] VITALS: BP 109/72; PULSE 92; TEMP 36.4; O2SAT 98
[2024-05-09 08:10] VITALS: BP 116/64; PULSE 88; O2SAT 96; O2SAT 97
[2024-05-09] MEDS: BUPIVACAINE HCL 0.25% PF 25 MG/10 ML VIAL INJ (08:11)
[2024-05-09] MEDS: DEXAMETHASONE SOD PHOS 10 MG/ML VIAL INJ (08:11)
[2024-05-09] MEDS: IOHEXOL 240 MG/ML - 10 ML VIAL INJ (08:11)
[2024-05-09] MEDS: LIDOCAINE HCL 2% 400 MG/20 ML MDV 3 ML INJ (08:12)
[2024-05-09 08:13] VITALS: BP 104/57
--- NOTE | 2024-05-09 08:13 | P.ON_ITS ---
Date of procedure: 05/09/24 Pre-op diagnosis: M54.12 Post-op diagnosis: same as pre-op Procedure: Procedure: Left C5-6, 6-7 transforaminal epidural steroid injection Medications: Bupivacaine 0.25% 1cc, lidocaine 2% 1cc, dexamethasone 10mg The patient was seen and examined in the preoperative holding area.? Informed consent was obtained and placed on the chart.? Patient was brought to the medical procedure unit and placed in the prone position where a timeout was completed verifying the correct patient, procedure site, position, and planned special equipment using sterile aseptic technique.? Under direct fluoroscopic visualization a 25-gauge Quincke tipped spinal needle was advanced to the designated neural foramen where contrast dye was injected to show adequate spread.? The needle was inserted at level left C5-6. There was no evidence of vascular or adverse uptake.? Epidural spread was appreciated.? The above- mentioned injectate was then placed in a 1.5 mL aliquot preceded by negative aspiration.? The needle was removed. The needle was inserted and the procedure repeated at level left C6-7.? The surgery site was covered.? Patient was taken to the postprocedural recovery area and monitored for an appropriate length of time before found suitable for discharge in the accompaniment of a responsible adult. Anesthesia: Local Surgeon: Ugo Bourgeois Pathology: none sent Condition: stable Disposition: no change
== END 2024-05-09 08:19 | disposition home or self-care (01) ==
LOC: SURGOUT 07:10
PROVIDERS: PCP Nurse Practitioner Family; Visit Provider Anesthesiology
DX: M54.12 Radiculopathy, cervical region (principal)
CPT/HCPCS: 36415; 64479; 64480; 82948; J0665; J1100; Q9966

== ENCOUNTER 2024-05-25 09:37 | Outpatient (OUT) | payer OTHER, SELFPAY ==
--- NOTE | 2024-05-25 10:41 | P.CN_ITS ---
Consult Note: HPI Data of Consult Patient: known to practice within the last 3 years Requesting Physician: Nancy Lipscomb NP Primary Care Provider: Loreto Mcneal NP Consult Narrative Reason for consult: neck/shoulder pain Narrative: Karma Candelaria a 43 year old female presents for evaluation of cervical pain. hx of cervical radiculopathy, was receiving ESIs at prior pain management for cervical radiculopathy with minimal improvement per pt. 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 has been engaged in PT, dry needling, massage extensively over the last 2 years without improvement in pain or functional ability. Today pain 7/10 baching, crunching, stabbing. reports prior emg of upper extremities, results reviewed and unremarkable. currently on duloxetine, gabapentin, flexeril, diclofenac with mild relief without side effects. Pain increased with twisting her head, driving, housework, ADLs. Pain improved with lying and sitting. recently underwent cervical MRI which is consistent with degenerative changes and multilevel disc bulge with stenosis. recently underwent left C5/6 C6/7 TFESI with 90% improvement in radicular pain cc:: CC: Nancy Lipscomb NP Review of Systems ROS Status of ROS 10 or more systems reviewed and unremark able except as noted in history and below Musculoskeletal Reports: neck pain and extremity pain PFSH [facility] Medical History (Updated 05/04/24 @ 14:46 by Sil Madera) Heartburn ?R12 - Heartburn (ICD-10) Acid reflux ?K21.9 - Gastro-esophageal reflux disease without esophagitis (ICD-10) ASD (atrial septal defect) ?Q21.10 - Atrial septal defect, unspecified (ICD-10) ADHD ?F90.9 - Attention-deficit hyperactivity disorder, unspecified type (ICD-10) Bipolar affect, depressed ?F31.30 - Bipolar disorder, current episode depressed, mild or moderate severity, unspecified (ICD-10) Anemia ?D64.9 - Anemia, unspecified (ICD-10) Low back pain ?M54.50 - Low back pain, unspecified (ICD-10) Osteoarthritis ?M19.90 - Unspecified osteoarthritis, unspecified site (ICD-10) Carpal tunnel syndrome ?G56.00 - Carpal tunnel syndrome, unspecified upper limb (ICD-10) Obesity ?E66.9 - Obesity, unspecified (ICD-10) Diabetes ?E11.9 - 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s (ICD-10) Sleep apnea ?G47.30 - Sleep apnea, unspecified (ICD-10) Asthma ?J45.909 - Unspecified asthma, uncomplicated (ICD-10) High cholesterol ?E78.00 - Pure hypercholesterolemia, unspecified (ICD-10) Surgical History (Updated 05/04/24 @ 14:46 by Sil Madera) History of nasal surgery ?Z98.890 - Other specified postprocedural states (ICD-10) History of ankle surgery ?Z98.890 - Other specified postprocedural states (ICD-10) History of tonsillectomy and adenoidectomy ?Z90.89 - Acquired absence of other organs (ICD-10) H/O shoulder surgery ?Z98.890 - Other specified postprocedural states (ICD-10) History of cholecystectomy ?Z90.49 - Acquired absence of other specified parts of digestive tract (ICD- 10) Social History Little interest or pleasure in doing things: not at all Feeling down, depressed, or hopeless: not at all Meds Home Medications and Allergies Home Medications ?Medication ?Instructions ?Recorded ?Confirmed ?Type Bifidobacterium infantis 4 mg 4 mg PO DAILY 10/24/23 05/09/24 History capsule (Align (B.infantis)) ascorbic acid (vitamin C) 500 mg 500 mg PO BID 10/24/23 05/09/24 History tablet (Vitamin C) ciclopirox 0.77 % topical cream 1 applic topical Q12H 10/24/23 05/09/24 History duloxetine 60 mg capsule,delayed 60 mg PO DAILY 10/24/23 05/09/24 History release empagliflozin 25 mg tablet 25 mg PO DAILY 10/24/23 05/09/24 History (Jardiance) famotidine 40 mg tablet 40 mg PO DAILY 10/24/23 05/09/24 History fluoxetine 60 mg tablet 60 mg PO DAILY 10/24/23 05/09/24 History gabapentin 300 mg capsule 300 mg PO Q8H 10/24/23 05/09/24 History lamotrigine 200 mg tablet 200 mg PO DAILY 10/24/23 05/09/24 History lurasidone 120 mg tablet 120 mg PO DAILY 10/24/23 05/09/24 History multivitamin with folic acid 400 1 tab PO DAILY 10/24/23 05/09/24 History mcg tablet (Daily-Karely (with folic acid)) pioglitazone 30 mg tablet 30 mg PO DAILY 10/24/23 05/09/24 History rosuvastatin 10 mg tablet 10 mg PO DAILY 10/24/23 05/09/24 History sumatriptan succinate 100 mg tablet 100 mg PO Q2H PRN migraine headache 10/24/23 05/09/24 History trazodone 50 mg tablet 50 mg PO DAILY 10/24/23 05/09/24 History vitamin B complex 1 tab PO Q24H 10/24/23 05/09/24 History albuterol sulfate 0.63 mg/3 mL 0.63 mg inhalation TID PRN 11/16/23 05/09/24 History solution for nebulization bronchospasm albuterol sulfate 90 mcg/actuation 2 inh inhalation QID PRN shortness 11/16/23 05/09/24 History aerosol inhaler (Proventil HFA) of breath or wheezing biotin injectioin .every other week 11/16/23 History diclofenac sodium 75 mg 75 mg PO BID PRN pain #60 tabs 11/16/23 05/09/24 Rx tablet,delayed release fluticasone propionate 50 1 spray intranasal DAILY PRN 11/16/23 05/09/24 History mcg/actuation nasal allergy symptoms spray,suspension (24 Hour Allergy Relief) invizia 11/16/23 History rizatriptan 10 mg tablet (Maxalt) See Rx Instructions PO .COMPLEX 11/16/23 05/09/24 History ferrous sulfate 325 mg (65 mg 325 mg PO DAILY 01/08/24 05/09/24 History iron) tablet (FeroSul) docusate sodium 100 mg capsule 300 mg PO DAILY 01/11/24 05/09/24 History linaclotide 290 mcg capsule 290 mcg PO DAILY 01/11/24 05/09/24 History (Linzess) cyclobenzaprine 10 mg tablet See Rx Instructions .Route 03/10/24 05/09/24 Rx .COMPLEX PRN muscle spasm #90 tabs cholecalciferol (vitamin D3) 125 125 mcg PO DAILY 03/31/24 05/09/24 History mcg (5,000 unit) tablet (Vitamin D3) fexofenadine 180 mg tablet 180 mg PO DAILY 03/31/24 05/09/24 History lisdexamfetamine 70 mg capsule 70 mg PO QAM 03/31/24 05/09/24 History (Vyvanse) metoprolol succinate 25 mg 12.5 mg PO DAILY 03/31/24 05/09/24 History tablet,extended release 24 hr ondansetron 4 mg disintegrating 4 mg PO Q6H PRN nausea and 03/31/24 05/09/24 Rx tablet vomiting #12 tabs gabapentin 300 mg capsule See Rx Instructions .Route 05/03/24 05/09/24 Rx .COMPLEX #180 caps gabapentin 300 mg capsule See Rx Instructions .Route 05/04/24 05/09/24 Rx .COMPLEX #180 caps Allergies Allergy/AdvReac Type Severity Reaction Status Date / Time cephalexin (From Keflex) Allergy Intermediate Rash Verified 05/09/24 07:27 citalopram (From Celexa) Allergy Intermediate Rash Verified 05/09/24 07:27 metformin Allergy Intermediate Nausea Verified 05/09/24 07:27 Exam Constitutional Documenting provider has reviewed patient's vital signs: yes Common normals: no apparent distress, oriented x3, healthy appearing, alert and well nourished General appearance: cooperative HENWY Common normals: normocephalic, hearing grossly normal bilaterally and moist oral mucous membranes Head and scalp: normocephalic Eye Common normals: PERRL Pupil: PERRL Neck & C-Spine Common normals: full ROM General: normal visual inspection Cervical spine: cervical ROM abnormal, pain with cervical ROM and cervical spine tenderness C4, C5 and C6 Other: negative spurlings strength 5/5 in BUE facet loading positive C3-6 Chest Common normals: inspection of chest normal Respiratory Common normals: normal respiratory effort, no retractions and no use of accessory muscles Neuro Common normals: oriented x3, CN's II-XII intact bilaterally, moves all extremities, no focal motor deficits, no sensory deficits noted and deep tendon reflexes 2+ bilaterally Sensorium/orientation: alert Motor exam: strength 5/5 throughout and no movement abnormalities noted Psych Common normals: mental status grossly normal, thought process normal, cooperative, affect normal, speech normal and activity/motor behavior normal Speech: normal speech Thought process: normal thought process Results Imaging cervical MRI: Attestation: I have reviewed the pertinent imaging results. Radiologist's impression: Straightening normal cervical lordosis. Vertebral body heights and facet alignments are maintained. Probable hemangioma are noted in the C6 and C7 vertebral bodies. No acute or aggressive osseous abnormality is evident. There is also probable hemangioma in the T3 vertebral body. Limited evaluation of the paravertebral soft tissues is without acute abnormality. Bilateral subcentimeter thyroid nodules are present. C2-C3: No focal disc herniation identified. No spinal canal or neural foraminal stenosis. C3-C4: No focal disc herniation identified. No spinal canal or neural foraminal stenosis. C4-C5: Minimal broad-based disc bulge without spinal canal stenosis. No neural foraminal stenosis. C5-C6: Diffuse broad-based disc bulge with a probable superimposed left paracentral disc extrusion with inferior migration. Mild to moderate spinal canal stenosis. Moderate bilateral neural foraminal stenosis, left greater than right secondary to broad-based disc bulge and facet arthropathy. C6-C7: Minimal broad-based disc bulge without spinal canal stenosis. No neural foraminal stenosis. C7-T1: No focal disc herniation identified. No spinal canal stenosis. Mild bilateral neural foraminal stenosis, right greater than left secondary to uncovertebral degeneration facet arthropathy. Additional Findings Additional findings: If on a controlled substance or opioids, I have checked an [place] report on this patient and there are no aberrancies noted in the prescribing history.??If on a controlled substance or opioid a drug screen was completed and reviewed within the last year, and if there has not been a drug screen completed we ordered one today to monitor higher risk, state monitored pain medication use. As part of providing excellent, safe, comprehensive care, the following was completed at our patient's visit: 1. A medication reconciliation and review to ensure accurate knowledge of current/active medications, including asking our patients to inform us about any jjog-kew-jwjeaeh medications or herbal remedies/nutritional supplements/alternative remedies. 2. A review to specifically ensure our patients have had annual screening for screening for depression, screening for tobacco use, and screening for unhealthy alcohol use. For concerning screenings had a discussion with the patient, provided patient education, and recommended follow-up with primary care provider when appropriate. If patient noted with a risk of falling, they received education on strength, gait, and balance training to prevent future risk of falling. Portions of this note may have been carried over from the previous visit and updated as appropriate. Please note this office utilizes paper charting in addition to the electronic medical record. A list of current medications, vitals, and PMH is available there as the clinical staff outside of myself do not have access to [employer] charting during the clinic day operations. As part of providing quality comprehensive care the current medications, vitals, and PMH were reviewed in the paper chart. Assessment and Plan Assessment and Plan (1) Cervical radiculopathy: (2) Cervical spondylosis: Assessment and Plan: The patient has had over 3 months of moderate to severe neck pain with functional impairment and inadequate response to conservative care including NSAIDS (unless there are contraindication such as concurrent blood thinners), multiple oral or topical pain medications, and home exercise program/physical therapy.? Patient has completed >6 weeks of guided home exercise program and/or formal physical therapy program without relief of their symptoms.? I have reviewed the imaging of the cervical spine and no red flags were identified.? The imaging reveals radiographic findings consistent with cervical spondylosis The Oswestry Disability Index was completed, and the patient scored a 22%.? The patient noted the following:?? moderate to severe pain impacting ADLs and sleep We discussed the risks and benefits of the procedure with the patient, and we a re NOT planning on using sedation as outlined in the guidelines from Medicare unless there is a documented reason that sedation would be strongly recommended.?? Plan bilateral C4-5 C5-6 facet medial branch block x2 working towards RFA for facet mediated pain secondary to cervical spondylosis continue HEP and PT as tolerated continue current medications f/u after each injection
== END 2024-05-25 09:38 | disposition home or self-care (01) ==
LOC: PM 09:38
PROVIDERS: PCP Nurse Practitioner Family; Visit Provider Nurse Practitioner
DX: M54.12 Radiculopathy, cervical region (principal); M47.812 Spondylosis without myelopathy or radiculopathy, cervical region
CPT/HCPCS: G0463

== ENCOUNTER 2024-05-26 14:52 | Emergency (ER) | payer OTHER, SELFPAY ==
[2024-05-26 15:07] VITALS: BP 149/88; PULSE 125; TEMP 36.8; O2SAT 98; BMI 40.7
[2024-05-26 15:09] VITALS: BP 149/88; O2SAT 93
--- NOTE | 2024-05-26 15:13 | ECG_ITS ---
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 Measurements Intervals [place] Rate: 116 P: 34 ND: 128 QRS: 1 QRSD: 72 T: 13 QT: 320 QTc: 389 Interpretive Statements 1120 Sinus tachycardia Otherwise normal ECG Compared to ECG 03/31/2024 17:15:50 No significant changes Electronically Signed On 05-27-2024 19:18:53 EDT by REJI DIAS M.D.
--- NOTE | 2024-05-26 15:14 | ED.GENADUL1 ---
HPI HPI - General Adult General Chief complaint: Shortness of Breath/Dyspnea Stated complaint: SOB HIGH BLOOD PRESSURE CHEST PAIN Time Seen by Provider: 05/26/24 15:09 Source: patient Mode of arrival: walk-in History of Present Illness HPI narrative: 43-year-old female presents to the emergency department for a fast heartbeat. She seems to be able to sense it. She states that sometimes her heart rate is fast and she wore a monitor once because of it. She saw her industrial maintenance mechanic today and they noted that her heartbeat was fast and at physical therapy it was fast so she came here. She has had no fever cough vomiting or diarrhea and does not complain of syncope or presyncope. Related Data Home Medications ?Medication ?Instructions ?Recorded ?Confirmed Bifidobacterium infantis 4 mg 4 mg PO DAILY 10/24/23 05/09/24 capsule (Align (B.infantis)) ascorbic acid (vitamin C) 500 mg 500 mg PO BID 10/24/23 05/09/24 tablet (Vitamin C) ciclopirox 0.77 % topical cream 1 applic topical Q12H 10/24/23 05/09/24 duloxetine 60 mg capsule,delayed 60 mg PO DAILY 10/24/23 05/09/24 release empagliflozin 25 mg tablet 25 mg PO DAILY 10/24/23 05/09/24 (Jardiance) famotidine 40 mg tablet 40 mg PO DAILY 10/24/23 05/09/24 fluoxetine 60 mg tablet 60 mg PO DAILY 10/24/23 05/09/24 gabapentin 300 mg capsule 300 mg PO Q8H 10/24/23 05/09/24 lamotrigine 200 mg tablet 200 mg PO DAILY 10/24/23 05/09/24 lurasidone 120 mg tablet 120 mg PO DAILY 10/24/23 05/09/24 multivitamin with folic acid 400 1 tab PO DAILY 10/24/23 05/09/24 mcg tablet (Daily-Karely (with folic acid)) pioglitazone 30 mg tablet 30 mg PO DAILY 10/24/23 05/09/24 rosuvastatin 10 mg tablet 10 mg PO DAILY 10/24/23 05/09/24 sumatriptan succinate 100 mg tablet 100 mg PO Q2H PRN migraine headache 10/24/23 05/09/24 trazodone 50 mg tablet 50 mg PO DAILY 10/24/23 05/09/24 vitamin B complex 1 tab PO Q24H 10/24/23 05/09/24 albuterol sulfate 0.63 mg/3 mL 0.63 mg inhalation TID PRN 11/16/23 05/09/24 solution for nebulization bronchospasm albuterol sulfate 90 mcg/actuation 2 inh inhalation QID PRN shortness 11/16/23 05/09/24 aerosol inhaler (Proventil HFA) of breath or wheezing biotin injectioin .every other week 11/16/23 fluticasone propionate 50 1 spray intranasal DAILY PRN 11/16/23 05/09/24 mcg/actuation nasal allergy symptoms spray,suspension (24 Hour Allergy Relief) invizia 11/16/23 rizatriptan 10 mg tablet (Maxalt) See Rx Instructions PO .COMPLEX 11/16/23 05/09/24 ferrous sulfate 325 mg (65 mg 325 mg PO DAILY 01/08/24 05/09/24 iron) tablet (FeroSul) docusate sodium 100 mg capsule 300 mg PO DAILY 01/11/24 05/09/24 linaclotide 290 mcg capsule 290 mcg PO DAILY 01/11/24 05/09/24 (Linzess) cholecalciferol (vitamin D3) 125 125 mcg PO DAILY 03/31/24 05/09/24 mcg (5,000 unit) tablet (Vitamin D3) fexofenadine 180 mg tablet 180 mg PO DAILY 03/31/24 05/09/24 lisdexamfetamine 70 mg capsule 70 mg PO QAM 03/31/24 05/09/24 (Vyvanse) metoprolol succinate 25 mg 12.5 mg PO DAILY 03/31/24 05/09/24 tablet,extended release 24 hr Previous Rx's ?Medication ?Instructions ?Recorded diclofenac sodium 75 mg 75 mg PO BID PRN pain #60 tabs 11/16/23 tablet,delayed release cyclobenzaprine 10 mg tablet See Rx Instructions .Route 03/10/24 .COMPLEX PRN muscle spasm #90 tabs ondansetron 4 mg disintegrating 4 mg PO Q6H PRN nausea and 03/31/24 tablet vomiting #12 tabs gabapentin 300 mg capsule See Rx Instructions .Route 05/03/24 .COMPLEX #180 caps gabapentin 300 mg capsule See Rx Instructions .Route 05/04/24 .COMPLEX #180 caps Allergies Allergy/AdvReac Type Severity Reaction Status Date / Time cephalexin (From Keflex) Allergy Intermediate Rash Verified 05/09/24 07:27 citalopram (From Celexa) Allergy Intermediate Rash Verified 05/09/24 07:27 metformin Allergy Intermediate Nausea Verified 05/09/24 07:27 Opioid HPI Opioid Management Most Recent Opioid Data: Last Pain Scale 6 05/09/24 07:25 05/09/24 Ur Phencyclidine Scrn Negative (NEGATIVE) 10/24/23 05:14 10/24/23 Review of Systems ROS Narrative A ten point review of systems is negative except as noted above. [facility] Medical History (Updated 05/26/24 @ 17:25 by Peewee Marroquin MD) Heartburn ?R12 - Heartburn (ICD-10) Acid reflux ?K21.9 - Gastro-esophageal reflux disease without esophagitis (ICD-10) ASD (atrial septal defect) ?Q21.10 - Atrial septal defect, unspecified (ICD-10) ADHD ?F90.9 - Attention-deficit hyperactivity disorder, unspecified type (ICD-10) Bipolar affect, depressed ?F31.30 - Bipolar disorder, current episode depressed, mild or moderate severity, unspecified (ICD-10) Anemia ?D64.9 - Anemia, unspecified (ICD-10) Low back pain ?M54.50 - Low back pain, unspecified (ICD-10) Osteoarthritis ?M19.90 - Unspecified osteoarthritis, unspecified site (ICD-10) Carpal tunnel syndrome ?G56.00 - Carpal tunnel syndrome, unspecified upper limb (ICD-10) Obesity ?E66.9 - Obesity, unspecified (ICD-10) Diabetes ?E11.9 - 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s (ICD-10) Sleep apnea ?G47.30 - Sleep apnea, unspecified (ICD-10) Asthma ?J45.909 - Unspecified asthma, uncomplicated (ICD-10) High cholesterol ?E78.00 - Pure hypercholesterolemia, unspecified (ICD-10) Surgical History (Updated 05/04/24 @ 14:46 by Sil Madera) History of nasal surgery ?Z98.890 - Other specified postprocedural states (ICD-10) History of ankle surgery ?Z98.890 - Other specified postprocedural states (ICD-10) History of tonsillectomy and adenoidectomy ?Z90.89 - Acquired absence of other organs (ICD-10) H/O shoulder surgery ?Z98.890 - Other specified postprocedural states (ICD-10) History of cholecystectomy ?Z90.49 - Acquired absence of other specified parts of digestive tract (ICD-10) Social History Little interest or pleasure in doing things: not at all Feeling down, depressed, or hopeless: not at all Exam Narrative Exam Narrative: Nurses note and vital signs reviewed and patient is not hypoxic. General: The patient appears well and in no apparent distress. Patient is resting comfortably on cart. Skin: Warm, dry, no pallor noted. There is no rash noted. Head: Normocephalic, atraumatic Eye: Normal conjunctiva, no drainage Ears, Nose, Mouth, and Throat: oral mucosa is moist. Nares patent. Cardiovascular: Regular Rate and Rhythm, mildly tachycardic Respiratory: Patient is in no distress, no accessory muscle use, lungs are clear to auscultation, no wheezing, rales or rhonchi Back: non-tender GI: Soft and nontender Musculoskeletal: The patient has no evidence of calf tenderness, no pitting edema, symmetrical pulses noted bilaterally Neurological: A&O, normal speech Psychiatric: Cooperative Constitutional Vital Signs, click to edit/add: Last Vital Signs Temp 98.2 F 05/26/24 15:07 Pulse 114 H 05/26/24 16:30 Resp 24 H 05/26/24 16:30 BP 105/66 05/26/24 16:06 Pulse Ox 92 L 05/26/24 16:06 O2 Del Method Room Air 05/26/24 16:06 Course Vital Signs Vital signs: Vital Signs Temperature 98.2 F 05/26/24 15:07 Pulse Rate 125 H 05/26/24 15:07 Respiratory Rate 20 05/26/24 15:07 Blood Pressure 149/88 H 05/26/24 15:07 Pulse Oximetry 98 05/26/24 15:07 Oxygen Delivery Method Room Air 05/26/24 15:07 Temperature 98.2 F 05/26/24 15:07 Pulse Rate 114 H 05/26/24 16:30 Respiratory Rate 24 H 05/26/24 16:30 Blood Pressure 105/66 05/26/24 16:06 Pulse Oximetry 92 L 05/26/24 16:06 Oxygen Delivery Method Room Air 05/26/24 16:06 Medical Decision Making MDM Narrative Medical decision making narrative: The patient's work appears negative and her heart rate has come down after some IV fluids. I have no clinical suspicion of pulmonary embolism. Treatment diagnosis and follow-up were discussed with the patient. Differential Diagnosis Differential Diagnosis: Sinus tachycardia, anxiety, dehydration, anemia Lab Data Lab results reviewed: Yes I reviewed the patient's lab results Labs: Lab Results 05/26/24 05/26/24 Range/Units 15:25 16:35 WBC 10.6 (4.0-11.0) 10^3/uL RBC 4.94 (4.20-5.40) 10^6/uL Hgb 14.0 (12.0-16.0) g/dL Hct 42.1 (36.0-48.0) % MCV 85.2 (81.0-99.0) fL MCH 28.3 (26.7-34.0) pg MCHC 33.3 (29.9-35.2) g/dL RDW 14.2 (11.0-15.0) % Plt Count 307 (150-450) 10^3/uL MPV 11.1 (9.5-13.5) fL Neut % (Auto) 69.3 (43.0-75.0) % Lymph % (Auto) 22.0 (20.5-60.0) % Creek % (Auto) 7.0 (1.7-12.0) % Eos % (Auto) 0.9 (0.9-7.0) % Baso % (Auto) 0.4 (0.2-2.0) % Neut # (Auto) 7.4 H (1.4-6.5) 10^3/uL Lymph # (Auto) 2.3 (1.2-3.8) 10^3/uL Creek # (Auto) 0.7 (0.3-0.8) 10^3/uL Eos # (Auto) 0.1 (0.0-0.7) 10^3/uL Baso # (Auto) 0.0 (0.0-0.1) 10^3/uL Abs Immat Gran (auto) 0.04 H (0.00-0.03) 10^3/uL Imm/Tot Granulo (auto) 0.4 (0.0-0.5) % Sodium 141 (136-145) mmol/L Potassium 3.9 (3.5-5.1) mmol/L Chloride 103 (98-107) mmol/L Carbon Dioxide 26.1 (21.0-32.0) mmol/L Anion Gap 15.8 BUN 13.0 (7.0-18.0) mg/dL Creatinine 0.74 (0.55-1.02) mg/dL Est GFR ( Amer) >60 (>=60 mL/min/1.73m^2) Est GFR (Non-Af Amer) >60 (>=60 mL/min/1.73m^2) BUN/Creatinine Ratio 17.6 Glucose 131 H (74-106) mg/dL Calcium 9.0 (8.5-10.1) mg/dL Magnesium 2.0 (1.8-2.4) mg/dL Troponin I High Sens 5.2 (4.0-51.3) pg/mL Urine Color Lt. yellow (YELLOW) Urine Clarity Clear (CLEAR) Urine pH 6.0 (5.0-9.0) Ur Specific [place] 1.010 (1.005-1.025) Urine Protein Negative (NEG/TRACE) mg/dL Urine Glucose (UA) >=1000 A (NEGATIVE) mg/dL Urine Ketones Negative (NEGATIVE) mg/dL Urine Occult Blood Negative (NEGATIVE) Urine Nitrite Negative (NEGATIVE) Urine Bilirubin Negative (NEGATIVE) Urine Urobilinogen 0.2 (0.2-1.0) EU/dL Ur Leukocyte Esterase Negative (NEGATIVE) Urine RBC None seen (0-2) #/HPF Urine WBC None seen (NONE SEEN) #/HPF Ur Squamous Epith Cells Rare (NONE/RARE) #/LPF Urine Crystals None seen (None Seen) #/HPF Urine Bacteria Trace A (NONE SEEN) #/HPF Urine Casts None seen (NONE SEEN) #/LPF Urine Mucus None seen (NONE SEEN) Ur Culture Indicated? No Imaging Data Chest x-ray: Radiologist's impression: No acute cardiopulmonary process ECG Data Attestation: I personally reviewed and interpreted this ECG as follows: (EKG on my interpretation shows sinus rhythm with a rate of 116 and no acute change) Discharge Plan Discharge Chief Complaint: Shortness of Breath/Dyspnea Clinical Impression: Sinus tachycardia Patient Disposition: Home, Self-Care Time of Disposition Decision: 17:25 Condition: Good Mode of Transportation: Private Vehicle Prescriptions / Home Meds: No Action ascorbic acid (vitamin C) [Vitamin C] 500 mg tablet 500 mg PO BID Align (B.infantis) 4 mg capsule 4 mg PO DAILY ciclopirox 0.77 % cream 1 applic TOPICAL Q12H duloxetine 60 mg capsule,delayed release(DR/EC) 60 mg PO DAILY Jardiance 25 mg tablet 25 mg PO DAILY famotidine 40 mg tablet 40 mg PO DAILY fluoxetine 60 mg tablet 60 mg PO DAILY gabapentin 300 mg capsule 300 mg PO Q8H lamotrigine 200 mg tablet 200 mg PO DAILY lurasidone 120 mg tablet 120 mg PO DAILY multivitamin with folic acid [Daily-Karely (with folic acid)] 400 mcg tablet 1 tab PO DAILY pioglitazone 30 mg tablet 30 mg PO DAILY rosuvastatin 10 mg tablet 10 mg PO DAILY sumatriptan succinate 100 mg tablet 100 mg PO Q2H PRN (Reason: migraine headache) trazodone 50 mg tablet 50 mg PO DAILY Rx Instructions: HS vitamin B complex Tablet 1 tab PO Q24H diclofenac sodium 75 mg tablet,delayed release (DR/EC) 75 mg PO BID PRN (Reason: pain) Qty: 60 2RF rizatriptan [Maxalt] 10 mg tablet See Rx Instructions .ROUTE .COMPLEX Rx Instructions: take 1 tab at onset of headache; if no relief may repeat 1 tab after at least 2 hrs; max = 3 tabs/24 hr albuterol sulfate [Proventil HFA] 90 mcg/actuation HFA aerosol inhaler 2 inh inhalation QID PRN (Reason: shortness of breath or wheezing) fluticasone propionate [24 Hour Allergy Relief] 50 mcg/actuation spray,suspension 1 spray intranasal DAILY PRN (Reason: allergy symptoms) Rx Instructions: administer into each nostril albuterol sulfate 0.63 mg/3 mL solution for nebulization 0.63 mg inhalation TID PRN (Reason: bronchospasm) biotin injectioin .every other week invizia ferrous sulfate [FeroSul] 325 mg (65 mg iron) tablet 325 mg PO DAILY cyclobenzaprine 10 mg tablet See Rx Instructions .ROUTE .COMPLEX PRN (Reason: muscle spasm) Qty: 90 2RF Rx Instructions: 10MG PO AM 20MG PO HS cholecalciferol (vitamin D3) [Vitamin D3] 125 mcg (5,000 unit) tablet 125 mcg PO DAILY fexofenadine 180 mg tablet 180 mg PO DAILY lisdexamfetamine [Vyvanse] 70 mg capsule 70 mg PO QAM metoprolol succinate 25 mg tablet extended release 24 hr 12.5 mg PO DAILY ondansetron 4 mg tablet,disintegrating 4 mg PO Q6H PRN (Reason: nausea and vomiting) Qty: 12 0RF gabapentin 300 mg capsule See Rx Instructions .ROUTE .COMPLEX Qty: 180 0RF Rx Instructions: 2 300MG CAPSULES TID gabapentin 300 mg capsule See Rx Instructions .ROUTE .COMPLEX Qty: 180 0RF Rx Instructions: 2 300MG CAPSULES TID #180 docusate sodium 100 mg capsule 300 mg PO DAILY Linzess 290 mcg capsule 290 mcg PO DAILY Print Language: Welsh Instructions: Tachycardia (ED) Referrals: Loreto Mcneal NP [Primary Care Provider] - 1 week
[2024-05-26 15:16] VITALS: BMI 40.6
[2024-05-26 15:30] VITALS: PULSE 117; O2SAT 93
[2024-05-26] MEDS: 0.9 % SODIUM CHLORIDE 1,000 ML 1000 ML IV (15:33)
[2024-05-26 15:54] LABS: Basophils Percent Auto 0.4 % (0.2-2.0); Eosinophils Absolute Auto 0.1 10^3/uL (0.0-0.7); Eosinophils Percent Auto 0.9 % (0.9-7.0); Hematocrit 42.1 % (36.0-48.0); Immature Granulocytes Abs Auto 0.04 10^3/uL (0.00-0.03); Immature Granulocytes Pct Auto 0.4 % (0.0-0.5); Lymphocytes Absolute Auto 2.3 10^3/uL (1.2-3.8); Mean Corpuscular HGB Conc 33.3 g/dL (29.9-35.2); Mean Corpuscular Hemoglobin 28.3 pg (26.7-34.0); Mean Corpuscular Volume 85.2 fL (81.0-99.0); Mean Platelet Volume 11.1 fL (9.5-13.5); Monocytes Absolute Auto 0.7 10^3/uL (0.3-0.8); Neutrophils Absolute Auto 7.4 10^3/uL (1.4-6.5); Neutrophils Percent Auto 69.3 % (43.0-75.0); Platelet Count 307 10^3/uL (150-450); Red Blood Count 4.94 10^6/uL (4.20-5.40); Red Cell Distribution Width 14.2 % (11.0-15.0); White Blood Count 10.6 10^3/uL (4.0-11.0)
[2024-05-26 16:00] VITALS: PULSE 119; O2SAT 93
[2024-05-26 16:04] LABS: Anion Gap 15.8; BUN Creatinine Ratio 17.6; Carbon Dioxide 26.1 mmol/L (21.0-32.0); Chloride 103 mmol/L (98-107); Estimated GFR (African America >60 (>=60 mL/min/1.73m^2); Estimated GFR (Non-African Ame >60 (>=60 mL/min/1.73m^2); Glucose 131 mg/dL (74-106); Potassium 3.9 mmol/L (3.5-5.1); Sodium 141 mmol/L (136-145)
[2024-05-26 16:06] VITALS: BP 105/66; PULSE 112; PULSE 114; O2SAT 92; O2SAT 93
[2024-05-26 16:15] LABS: Troponin I High Sensitivity 5.2 pg/mL (4.0-51.3)
[2024-05-26 16:30] VITALS: PULSE 114
[2024-05-26 17:11] LABS: Bilirubin Urine NEGATIVE (NEGATIVE); Blood Urine NEGATIVE (NEGATIVE); Clarity Urine CLEAR (CLEAR); Color Urine LT. YELLOW (YELLOW); Glucose Urine UA >=1000 mg/dL (NEGATIVE); Ketones Urine NEGATIVE (NEGATIVE); Leukocyte Esterase Urine NEGATIVE (NEGATIVE); Nitrite Urine NEGATIVE (NEGATIVE); Protein Urine NEGATIVE (NEG/TRACE); Urobilinogen Urine 0.2 EU/dL (0.2-1.0)
[2024-05-26 17:18] LABS: Bacteria Urine TRACE #/HPF (NONE SEEN); Cast Seen? NONE SEEN #/LPF (NONE SEEN); Crystals Seen? None Seen #/HPF (None Seen); Mucus Urine NONE SEEN (NONE SEEN); RBC Urine NONE SEEN #/HPF (0-2); Squamous Epithelial Cell Urine RARE #/LPF (NONE/RARE); WBC Urine NONE SEEN #/HPF (NONE SEEN)
[2024-05-26 17:19] LABS: Urine Culture Indicated NO
== END 2024-05-26 17:35 | disposition home or self-care (01) ==
PROVIDERS: Emergency Provider Emergency Medicine; PCP Nurse Practitioner Family
DX: R00.0 Tachycardia, unspecified (principal); Z90.49 Acquired absence of other specified parts of digestive tract; R07.9 Chest pain, unspecified; Z01.419 Encounter for gynecological examination (general) (routine) without abnormal findings
CPT/HCPCS: 36415; 71045; 80048; 81001; 83735; 84484; 85025; 87624; 88175; 93005; 99285

== ENCOUNTER 2024-05-26 15:33 | Outpatient (REF) | payer OTHER, SELFPAY ==
[2024-05-31 14:09] LABS: Age Gdln ACOG Testing Note (.); HPV Aptima Negative (Negative); IGP, Aptima HPV, rfx 16/18,45 Note (.)
== END 2024-05-26 15:34 | disposition home or self-care (01) ==
LOC: LAB 15:33
PROVIDERS: PCP Nurse Practitioner Family; Visit Provider Obstetrics & Gynecology
DX: Z01.419 Encounter for gynecological examination (general) (routine) without abnormal findings (principal)
CPT/HCPCS: 87624; 88175

== ENCOUNTER 2024-05-27 07:33 | Outpatient (OUT) | payer OTHER, SELFPAY ==
--- NOTE | 2024-05-27 07:36 | MM_ITS ---
Patient Name: PEE WHITEHEAD MR#: [id number] : 1980 Exam Date: 05/27/2024 Ordering Doctor: DR Roel Garber . RADIOLOGY REPORT PROCEDURE: MM TOMOSYNTHESIS SCREENING BI COMPARISON: MM DIAGNOSTIC MAMMO UNILAT RT, 03/25/2023. MG MAMM SCREEN 3D STELLA CAD, 03/16/2023. MM TOMOSYNTHESIS SCREENING BI, 11/07/2021. MM TOMOSYNTHESIS DIAGNOSTIC BI, 11/06/2020. INDICATIONS: Screening Calculator Name NCI Breast Cancer Risk Assessment Tool 5 Year Breast Cancer Risk Not Reported. Lifetime Breast Cancer Risk Not Reported. Personal Breast Cancer No Personal Ovarian Cancer No Treatments None Family Cancers None LOCATION: [facility] BREAST COMPOSITION: There are scattered areas of fibroglandular density. FINDINGS: RIGHT BREAST: No significant suspicious finding. LEFT BREAST: No significant suspicious finding. DIAGNOSTIC CATEGORY 1--NEGATIVE. RECOMMENDATIONS: ROUTINE MAMMOGRAM AND CLINICAL EVALUATION IN 12 MONTHS. PLEASE NOTE: A NORMAL MAMMOGRAM DOES NOT EXCLUDE THE POSSIBILITY OF BREAST CANCER. A CLINICALLY SUSPICIOUS PALPABLE LUMP SHOULD BE BIOPSIED. Dictated by: Mio Serra DO on 05/27/2024 at 16:38 Approved by: Mio Serra DO on 05/27/2024 at 16:48
--- OUTSIDE RECORDS SUMMARY | 2024-05-27 07:36 | XMS_ITS | CCD ---
Author Organization [facility] Care Team Providers Care Priming Powder Premix Blender Name Role Phone Juan Ramon Jean Unavailable [...] Garg Unavailable DOMENICA OLIVA Primary Care Physician [phone] HILARY GRANADO Referring Unavailable HILARY GRANADO Attending Unavailable Shawna Dudley DO Primary Care Provider MD Yo Blank Attending Provider [phone] DO Shawna Dudley Primary Care Provider BOGDAN SHAWNA K Referring Unavailable RUMSCHLAG, SHAWNA K Primary Care Unavailable RUMSCHELIZABETHG SHAWNA K Referring Unavailable RUMSCHLAG, SHAWNA K Primary Care Unavailable FORTINO ROBLEDO Attending Unavailable JORGE, LISA Referring Unavailable RUMSCHLAG, SHAWNA K Primary Care Unavailable ADAM MASSEY Attending Unavail able RUMSCHLAG, SHAWNA K Referring Unavailable [facility], [facility] Primary Care Unava ilable Fredis MANAGER MATERIALS MANAGEMENT - PRIMING MACHINE OPERATOR, Loreto Primary Care [facility] ider SERVICES, [facility] Primary Care Unava ilable SHAMMO, RORY Referring Unavailable RUMSCHLAG, SHAWNA K Primary Care Unavailable SHAMMO, RORY Referring Unavailable RUMSCHLAG, SHAWNA K Primary Care Unavailable ZAC HANNA Attending Unavailable ZAC HANNA Referring Unavailable RUMSCHLAG, SHAWNA K Primary Care Unavailable ZAC HANNA Admitting Unavailable ZAC HANNA Attending Unavailable RUMSCHLAG, SHAWNA K Referring Unavailable RUMSCHLAG, SHAWNA K Primary Care Unavailable JORGE, LISA Referring Unavailable [facility] Primary Care Unava ilable GAURAV SELLERS [...] Referring Unavailable RUMSCHLAG, SHAWNA Referring Unavailable RUMSCHLAG, SHAWAN [...] Care Unavailable RUMSCHLAG, SHAWNA Referring Unavailable Zully PRIMING MACHINE OPERATOR, Key Unavailable Rumschlag DO, Shawna Primary Care Provider [facility], Rory T Primary Care Provider [phone] Mio Marroquin DO Attending Provider Unavailab le NON STAFF Primary Care Unavailable Yo Blank Admitting Unavailable Yo Blank Attending Unavailable Mio Marroquin Attending Unavailable Shammo, Rory T Primary Care Unavailable Mio Marroquin Admitting Unavailable Shammo, Rory T Primary Care Unavailable Myrtle Cerna Admitting Unavailable Myrtle Cerna Attending Unavailable CLEO ZAMBRANO Attending Unavailable CLEO ZAMBRANO Referring Unavailable ROEL GARBER Attending Unavailable MENDEZ CARDOSO Attending Unavailable LAILA LIEBERMAN Attending Unavailable ROEL GARBER Attending Unavailable LAILA LIEBERMAN Attending Unavailable BRITTANY NEVILLE Attending Unavailable Giedraitis , Andrius Stoddard Attending Unavailable Giedraitis , Andrius Vytautas Attending Unavailable Giedraitis , Andrius Vytautas Attending Unavailable Giedraitis , Andrius Vytautas Attending Unavailable Allergies Allergy Classification Reported Allergen(s) Allergy Type Date of Onset Reaction(s) Facility Cephalosporins (antibiotic) (2 sources) Cephalexin Drug Allergy 7 [facility] Serotonin Reuptake Inhibitors (SSRIs) (2 sources) Citalopram Drug Allergy 7 [facility] (20 sources) cephalexin; Translations: [Keflex] Drug Allergy 3 [facility] Repository (4 sources) citalopram; Translations: [CeleXA] Drug Allergy 3 AOF, heart palpitation [facility] Repository (20 sources) Cephalexin; Translations: [CEPHALEXIN] Drug [facility] [address] [facility] Work Phone: (20 sources) Citalopram; Translations: [CITALOPRAM] Drug Allergy 4 Hives, anaphylaxis [facility] (5 sources) metFORMIN Drug Allergy Unknown [employer] [facility] Other (20 sources) metFORMIN; Translations: [METFORMIN] Drug Allergy 3 Unknown, Unknown Reaction [facility] Repository Comment on above: bottoms out to unde r 40 (20 sources) Metformin And Related Propensity to adverse reactions to drug 4 Other (See Comments) [facility] (20 sources) POISON DEVORAH EXTRACT; Translations: [POISON DEVORAH EXTRACT] Propensity to adverse reactions to drug (disorder) 3 [facility] Repository (1 source) Cephalexin Drug Allergy 4 [facility] Repository (1 source) Citalopram Drug Allergy 4 [facility] Repository (1 source) metFORMIN Drug Allergy 4 [facility] Repository Medications Current Medications Medication Drug Class(es) Dates Sig (Normalized) Sig (Original) [id number] 200 actuat albuterol 0.09 mg/actuat metered dose [...] by mouth Daily 04/20/2024 Active bifidobacterium animalis [id number] unt / lactobacillus acidophilus [id number] unt oral capsule (5 sources) take 1 [...] 11:00pm Start: 02-24-2023 take 1 capsule by mo ut in the morning cholecalciferol (Vitamin D-3) 50 MCG (2000 UT) capsule Take 2,000 Units by mouth [...] 2 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, unspecified whether intermodal dispatcher insulin use ([facility]) Take 1 tablet (25 mg) by mouth [...] 11:00pm Start: 10-14-2018 take 1 tablet by [facility] twice daily Pepcid 20 mg Tab 20 mg = 1 tab(s), Oral, BID, # 60 tab(s), Refills(s) 0 Start Date: 10/14/18 Status: Ordered take [address] [facility] once daily famotidine (PEPCID) 20 MG [...] (20 sources) Serotonin Reuptake Inhibitor Start: 10-15-19 take 1 tablet by mouth once daily [...] Daily, # 30 cap(s), Refills(s) 5, Pharmacy: [facility], 157, cm, 10/13/19 10:52:00 EDT, Height/Length [...] / neomycin 3.5 mg/ml / polymyxin b 14382 unt/ml otic solution (1 source) Aminoglycoside Antibacterial, Polymyxin-class Antibacterial, Corticosteroid Start: 10-22-2021 End: 10-29-2021 axwrjkah-quhjbgxcw-vdzlhueac isone (CORTISPORIN) 3.5-22767-[address] 4 drops into the [...] food, # 30 tab(s), Refills(s) 5, Pharmacy: [facility], 157, cm, 10/13/19 10:52:00 EDT, Height/Length [...] mouth as needed for Pain Active nystatin 718057 unt/ml topical cream (17 sources) Polyene Antifungal [...] 2 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, unspecified whether intermodal dispatcher insulin use (CMS/HCC) Take 1 tablet (30 mg) by mouth Daily 30 tablet 3 04/07/2024 Active plecanatide 3 mg oral tablet (1 source) Start: 02-05-2023 take 1 tablet by mouth every twenty-four hours Trulance 3 MG 1 tablet Orally Once a day for 30 days Jan, Active polyethylene glycol 3350 861780 mg / potassium chloride 2970 mg / sodium bicarbonate 6740 mg / sodium chloride 5860 mg / sodium sulfate 99076 mg powder for oral solution (2 sources) [...] Nausea, # 20 tab(s), Refills(s) 0, Pharmacy: [facility], 157, cm, 03/10/19 12:21:00 EST, Height/Length [...] 2 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, unspecified whether senior care insulin use (CMS/HCC) Inject 2.5 mg under the skin every 7 (seven) days 2 mL 3 04/11/2024 05/11/2024 Active Start: 04-07-2024 End: 05-07-2024 Tirzepatide (Mounjaro) 2.5 M G/0.5ML solution auto-injector Indications: 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, unspecified whether senior care insulin use (CMS/HCC) Inject 2.5 mg under [...] May 21, 2023 11:36am polyethylene glycol 3350 38027 mg powder for oral solution (7 sources) [...] (Other) Start: 05-21-2023 take 2 tablets by [facility] once daily at bedtime Tizanidine 4 mg [...] (BMI) of 39.0 to 39.9 in adult (CMS/[facility])] 04-07-2024 Chronic Other nutritional; endocrine; and metabolic [...] Test Name Value Interpretation Reference Range Facility [facility] HEMOGLOBIN A1Con 025 Glucose [Mass/Vol] 123 mg/dL [facility] HbA1c (Bld) [Mass fraction] 5.9 % 4.5 - 6.2 % [facility] Comment on above: ADA RECOMMENDED LIMI T 4.0 - 6.0 ADA THERAPEUTIC TARGET < 7.0 ACTION SUGGESTED > 7.0 [facility] Glucose (Bld) [Mass/Vol]on 0 04-07-2024 Glucose Blood, POC 115 mg/dL [facility] Laboratory - Hematology and Cell countson 04-07-2024 HbA1c (Bld) [Mass fraction] 5.8 % [facility] No Panel Informationon 04-07 Interpretation and review of laboratory results Normal Critical [facility] hospital Strep A Culture Onlyon 03-09 Strep A Culture Only No Group A Beta Streptococcus Isolated 2 Days PERFORMED BY: [place] [address] PATHOLOGIST PORTER MARINA DALIA SEARS M.D. Normal [facility] Comment on above: Performed By: #### C USTA #### [address] CBC with Auto Differentialon 01-13-2024 Basophils (Bld) [#/Vol] 0.06 10*3/uL [facility] Basophils/100 WBC (Bld) 0 % 0 - 2 % [facility] Eosinophils (Bld) [#/Vol] 0.10 10*3/uL [facility] Eosinophils/100 WBC (Bld) 1 % 1 - 4 % [facility] Erythrocyte distribution width (RBC) [Ratio] 13.6 % 11.8 - 14.4 % [facility] Hematocrit (Bld) [Volume fraction] 43.3 % 36.3 - 47.1 % [facility] Hemoglobin (Bld) [Mass/Vol] 14.0 g/dL 11.9 - 15.1 g/dL [facility] Immature granulocytes (Bld) [#/Vol] 0.10 10*3/uL [facility] Immature granulocytes/100 WBC (Bld) 1 % High 0 [facility] Interpretation and review of laboratory results Abnormal [facility] Lymphocytes/100 WBC (Bld) 22 % Low 24 - 43 % [facility] Lymphocytes/100 WBC (Bld) 2.98 % [facility] MCH (RBC) [Entitic mass] 28.5 pg 25.2 - 33.5 pg [facility] MCHC (RBC) [Mass/Vol] 32.3 g/dL 28.4 - 34.8 g/dL [facility] MCV (RBC) [Entitic vol] 88.2 fL 82.6 - 102.9 fL [facility] Monocytes/100 WBC (Bld) 8 % 3 - 12 % [facility] Monocytes/100 WBC (Bld) 1.12 % [facility] Neutrophils/100 WBC (Bld) 68 % High 36 - 65 % [facility] Nucleated RBC/100 WBC (Bld) [Ratio] 0.0 % 0.0 per 100 WBC [facility] Platelet mean volume (Bld) [Entitic vol] 10.0 fL 8.1 - 13.5 fL [facility] Platelets (Bld) [#/Vol] 452 10*3/uL [facility] RBC (Bld) [#/Vol] 4.91 10*6/uL 3.95 - 5.11 m/uL [facility] Segmented neutrophils/100 WBC (Bld) 9.08 % High [facility] WBC other (Bld) [#/Vol] 13.4 High [facility] Bon [facility] CBC with Diffon 01-13-2024 Abs. Basophil 0.06 k/uL Normal 0.00-0.20 [facility] Comment on above: Performed By: #### C DP, CP #### [facility] [address] [place] [address] [place] [address] Athletic Trainer: Domenica Velázquez MD Abs.Imm.Granulocyte 0.10 k/uL Normal 0.00-0.30 [facility] Comment on above: Performed By: #### C DP, CP #### [address] [place], [place] [address] Athletic Trainer: Domenica Velázquez MD Abs.Neutrophil (Seg) 9.08 k/uL High 1.50-8.10 [facility] Comment on above: Performed By: #### C DP, CP #### [facility] [address] [place] [address] Dr[place], [place] [address] Athletic Trainer: Domenica Velázquez MD Basophils/100 WBC (Bld) 0 % Normal 0-2 [facility] Comment on above: Performed By: #### C DP, CP #### [address] [place] [address] Athletic Trainer: Domenica Velázquez MD Eosinophils (Bld) [#/Vol] 0.10 10*3/uL Normal 0.00-0.44 [facility] Comment on above: Performed By: #### C DP, CP #### [facility] [address] [place] [address] [place] [address] Athletic Trainer: Domenica Velázquez MD Eosinophils/100 WBC (Bld) 1 % Normal 1-4 [facility] Comment on above: Performed By: #### C DP, CP #### [facility] [address] [place], [place] [id number] Athletic Trainer: Domenica Velázquez MD Erythrocyte distribution width (RBC) [Ratio] 13.6 % Normal 11.8-14.4 [facility] Comment on above: Performed By: #### C DP, CP #### [address] [place], [place] [id number] Athletic Trainer: Domenica Velázquez MD Hematocrit (Bld) [Volume fraction] 43.3 % Normal 36.3-47.1 [facility] Comment on above: Performed By: #### C DP, CP #### [address] [place], [id number] Athletic Trainer: Domenica Velázquez MD Hemoglobin (Bld) [Mass/Vol] 14.0 g/dL Normal 11.9-15.1 [facility] Comment on above: Performed By: #### C DP, CP #### [address] [place], [facility] Athletic Trainer: Domenica Velázquez MD Immature granulocytes/100 WBC (Bld) 1 % High 0 [facility] Comment on above: Performed By: #### C DP, CP #### [address] [place], [facility] Athletic Trainer: Domenica Velázquez MD Lymphocytes (Bld) [#/Vol] 2.98 10*3/uL Normal 1.10-3.70 [facility] Comment on above: Performed By: #### C DP, CP #### [facility] [address] [place] [address] Dr[place], [facility] Athletic Trainer: Domenica Velázquez MD Lymphocytes/100 WBC (Bld) 22 % Low 24-43 [facility] Comment on above: Performed By: #### C DP, CP #### [address] [place], [facility] Athletic Trainer: Domenica Velázquez MD MCH (RBC) [Entitic mass] 28.5 pg Normal 25.2-33.5 [facility] Comment on above: Performed By: #### C DP, CP #### [facility] [address] [place], [place] [id number] Athletic Trainer: Domenica Velázquez MD MCHC (RBC) [Mass/Vol] 32.3 g/dL Normal 28.4-34.8 [facility] Comment on above: Performed By: #### C DP, CP #### [facility] [address] [place], [place] [address] Athletic Trainer: Domenica Velázquez MD MCV (RBC) [Entitic vol] 88.2 fL Normal 82.6-102.9 [facility] Comment on above: Performed By: #### C DP, CP #### [address] [place], [facility] Athletic Trainer: Domenica Velázquez MD Monocytes (Bld) [#/Vol] 1.12 10*3/uL Normal 0.10-1.20 [facility] Comment on above: Performed By: #### C DP, CP #### [address] [place], [facility] Athletic Trainer: Domenica Velázquez MD Monocytes/100 WBC (Bld) 8 % Normal 3-12 [facility] Comment on above: Performed By: #### C DP, CP #### [facility] [address] [place], [place] [address] Athletic Trainer: Domenica Velázquez MD Neutrophil (Seg) 68 % High 36-65 [facility] Comment on above: Performed By: #### C DP, CP #### [facility] [address] [place], [place] [address] Athletic Trainer: Domenica Velázquez MD NRBC Automated 0.0 per 100 WBC Normal 0.0 [facility] Comment on above: Performed By: #### C DP, CP #### [facility] [address] [place], [facility] Athletic Trainer: Domenica Velázquez MD Platelet mean volume (Bld) [Entitic vol] 10.0 fL Normal 8.1-13.5 [facility] Comment on above: Performed By: #### C DP, CP #### [facility] [address] [place] [address] Athletic Trainer: Domenica Velázquez MD Platelets (Bld) [#/Vol] 452 10*3/uL Normal 138-453 [facility] Comment on above: Performed By: #### C DP, CP #### [facility] [address] [place] [address] Athletic Trainer: Domenica Velázquez MD RBC (Bld) [#/Vol] 4.91 10*6/uL Normal 3.95-5.11 [facility] Comment on above: Performed By: #### C MANUELA, CP #### [facility] [address] [place], [place] [id number] Athletic Trainer: Domenica Velázquez MD WBC (Bld) [#/Vol] 13.4 10*3/uL High 3.5-11.3 [facility] Comment on above: Performed By: #### C DP, CP #### [facility] [address] [place], [place] [id number] Athletic Trainer: Domenica Velázquez MD [facility] 01-13-2024 Albumin [Mass/Vol] 4.4 g/dL 3.5 - 5.2 g/dL [facility] Albumin/Globulin [Mass ratio] 1.3 {ratio} 1.0 - 2.5 [facility] ALP [Catalytic activity/Vol] 87 U/L 35 - 104 U/L [facility] ALT [Catalytic activity/Vol] 25 U/L 10 - 35 U/L [facility] Anion gap [Moles/Vol] 11 mmol/L 9 - 16 mmol/L [facility] AST [Catalytic activity/Vol] 17 U/L 10 - 35 U/L [facility] Bilirubin [Mass/Vol] mg/dL 0.00 - 1.20 mg/dL [facility] Calcium [Mass/Vol] 9.9 mg/dL 8.6 - 10. 4 mg/dL [facility] Chloride [Moles/Vol] 101 mmol/L 98 - 10 7 mmol/L [facility] CO2 [Moles/Vol] 25 mmol/L 20 - 31 mmol/L [facility] Creatinine [Mass/Vol] 0.7 mg/dL 0.50 - 0.90 mg/dL [facility] Est, Emily Carreon Rate - PINF [facility] Comment on above: These results are [...] mg/dL High 74 - 99 mg/dL [facility] Interpretation and review of laboratory results Abnormal [facility] Potassium [Moles/Vol] 4.2 mmol/L 3.7 - 5.3 mmol/L [facility] Protein [Mass/Vol] 7.8 g/dL 6.6 - 8.7 g/dL [facility] Sodium [Moles/Vol] 137 mmol/L 136 - 145 mmol/L [facility] Urea nitrogen [Mass/Vol] 24 mg/dL High 6 - 20 mg/dL [facility] Urea nitrogen/Creatinine [Mass ratio] 34 mg/mg High 9 - 20 [facility] Comp Metabolic Profon 2023 Albumin [Mass/Vol] 4.4 g/dL Normal 3.5-5.2 [facility] Comment on above: Performed By: #### C DP, CP #### [facility] [address] [place] [address] Athletic Trainer: Domenica Velázquez MD Albumin/Glob Ratio 1.3 Normal 1.0-2.5 [facility] Comment on above: Performed By: #### C DP, CP #### [facility] [address] [place], [place] [address] Athletic Trainer: Domenica Velázquez MD Alkaline Phos 87 U/L Normal 35-104 [facility] Comment on above: Performed By: #### C DP, CP #### [facility] [address] [place], [place] [id number] Athletic Trainer: Domenica Velázquez MD ALT [Catalytic activity/Vol] 25 U/L Normal 10-35 [facility] Comment on above: Performed By: #### C DP, CP #### [facility] [address] [place], [place] [id number] Athletic Trainer: Domenica Velázquez MD Anion gap [Moles/Vol] 11 mmol/L Normal 9-16 [facility] Comment on above: Performed By: #### C DP, CP #### [facility] [address] [place], [place] 3120383 Athletic Trainer: Domenica Velázquez MD AST [Catalytic activity/Vol] 17 U/L Normal 10-35 [facility] Comment on above: Performed By: #### C DP, CP #### [facility] [address] [place], [place] [address]83 Athletic Trainer: Domenica Velázquez MD Bilirubin [Mass/Vol] mg/dL Normal 0.00-1.20 [facility] Comment on above: Performed By: #### C DP, CP #### [facility] [address] [place], [place] [address]83 Athletic Trainer: Domenica Velázquez MD BUN/CRE Ratio 34 High 9-20 [facility] Comment on above: Performed By: #### C DP, CP #### [facility] [address] [place], [place] [address]83 Athletic Trainer: Domenica Velázquez MD Calcium [Mass/Vol] 9.9 mg/dL Normal 8.6-10.4 [facility] Comment on above: Performed By: #### C DP, CP #### [facility] [address] [place] [address] Athletic Trainer: Domenica Velázquez MD Chloride [Moles/Vol] 101 mmol/L Normal 98-107 [facility] Comment on above: Performed By: #### C DP, CP #### [facility] [address] [place] [address] Athletic Trainer: Domenica Velázquez MD CO2 [Moles/Vol] 25 mmol/L Normal 20-31 [facility] Comment on above: Performed By: #### C DP, CP #### [facility] [address] [place], [place] [address]83 Athletic Trainer: Domenica Velázquez MD Creatinine [Mass/Vol] 0.7 mg/dL Normal 0.50-0.90 [facility] Comment on above: Performed By: #### C DP, CP #### [facility] [address] [place] [address] Athletic Trainer: Domenica Velázquez MD GFR/1.73 sq M.predicted among non-blacks MDRD (S/P/Bld) [Vol rate/Area] mL/min/{1.73_m2} Normal >60 [facility] Comment on above: Result Comment: These [...] Performed By: #### C DP, CP #### [facility] [address] [place] [address] Athletic Trainer: Domenica Velázquez MD Glucose [Mass/Vol] 112 mg/dL High 74-99 [facility] Comment on above: Performed By: #### C DP, CP #### [facility] [address] [place] [address] Athletic Trainer: Domenica Velázquez MD Potassium [Moles/Vol] 4.2 mmol/L Normal 3.7-5.3 [facility] Comment on above: Performed By: #### C DP, CP #### [facility] [address] [place] [address] Athletic Trainer: Domenica Velázquez MD Protein [Mass/Vol] 7.8 g/dL Normal 6.6-8.7 [facility] Comment on above: Performed By: #### C DP, CP #### [facility] [address] [place] [address] Athletic Trainer: Domenica Velázquez MD Sodium [Moles/Vol] 137 mmol/L Normal 136-145 [facility] Comment on above: Performed By: #### C DP, CP #### [facility] [address] [place] [address] Athletic Trainer: Domenica Velázquez MD Urea nitrogen [Mass/Vol] 24 mg/dL High 6-20 [facility] Comment on above: Performed By: #### C DP, CP #### [facility] [address] [place] [address] Athletic Trainer: Domenica Velázquez MD Microscopic Urinalysison Bacteria LM Ql (Urine sed) 1+ Abnormal None [facility] Epithelial cells LM.HPF (Urine sed) [#/Area] 0 TO 2 [facility] Interpretation and review of laboratory results Abnormal [facility] Mucus Ql (Urine sed) TRACE Abnormal None [facility] RBC LM.HPF (Urine sed) [#/Area] 0 TO 2 [facility] WBC LM.HPF (Urine sed) [#/Area] None [facility] TSHon 01-13-2024 TSH Qn 1.57 m[IU]/L [facility] Thyroid Stim. Horm.on 2023 Thyroid Stim. Horm. 1.57 uIU/mL Normal 0.27-4.20 [facility] Comment on above: Performed By: #### T SH #### [facility] [address] [place], [place] 486[address]83 Athletic Trainer: Domenica Velázquez MD UA w/Reflex Cultureon 2023 Bilirubin, SemiQt,Ur Negative Normal NEG [facility] Comment on above: Performed By: #### U MIGUELO, UAX #### [facility] [address] [place], [place] [id number] Athletic Trainer: Domenica Velázquez MD Blood, Urine Negative Normal NEG [facility] Comment on above: Performed By: #### U MICAO, UAX #### [facility] [address] [place], [place] [address]83 Athletic Trainer: Domenica Velázquez MD Clarity (U) Clear Normal CLEAR [facility] Comment on above: Performed By: #### U MICAO, UAX #### [facility] [address] [place], [place] [id number] Athletic Trainer: Domenica Velázquez MD Color (U) Yellow Normal YEL [facility] Comment on above: Performed By: #### U MICAO, UAX #### [facility] [address] [place], [place] 7109383 Athletic Trainer: Domenica Velázquez MD Glucose Ql (U) 3+ mg/dL Abnormal NEG [facility] Comment on above: Performed By: #### U MICAO, UAX #### [facility] [address] [place], [place] 7805883 Athletic Trainer: Domenica Velázquez MD Ketones Ql (U) Negative Normal NEG [facility] Comment on above: Performed By: #### U MICAO, UAX #### [facility] [address] [place], [place] 8748783 Athletic Trainer: Domenica Velázquez MD Leukocyte esterase Test strip Ql (U) Negative Normal NEG [facility] Comment on above: Performed By: #### U MICAO, UAX #### [facility] [address] [place], [place] 8665783 Athletic Trainer: Domenica Velázquez MD Nitrite,Ur Negative Normal NEG [facility] Comment on above: Performed By: #### U MICAO, UAX #### [facility] [address] [place] [address] Dr[place], [place] 9946883 Athletic Trainer: Domenica Velázquez MD PH,Ur 6.0 Normal 5.0-9.0 [facility] Comment on above: Performed By: #### U MICAO, UAX #### [facility] [address] [place] [address] [place]. [place], [place] [id number] Athletic Trainer: Domenica Velázquez MD Protein Ql (U) Negative Normal NEG [facility] in Hospital Comment on above: Performed By: #### U MICAO, UAX #### [facility] [address] [place] [address] [place]. [place], [place] 2045583 Athletic Trainer: Domenica Velázquez MD Spec. [place],Ur >1.030 High 1.010-1.02 0 [facility] Comment on above: Performed By: #### U MICAO, UAX #### [facility] [address] [place], [place] 613[address]83 Athletic Trainer: Domenica Velázquez MD Urobilinogen,Ur Normal Normal 0.0-1.0 [facility] Comment on above: Performed By: #### U MICAO, UAX #### [facility] [address] [place], [place] 1104683 Athletic Trainer: Domenica Velázquez MD Urinalysis with Reflex to Cu ltureon 01-13-2024 Bilirubin Ql (U) Negative NEGATIVE [facility] Clarity (U) Clear Clear [facility] Color (U) Yellow Yellow [facility] Glucose Test strip (U) [Mass/Vol] 3+ Abnormal NEGATIVE mg/dL [facility] Hemoglobin Auto test strip Ql (U) Negative NEGATIVE [facility] Interpretation and review of laboratory results Abnormal [facility] Ketones (U) [Mass/Vol] Negative NEGATIVE mg/dL [facility] Leukocyte esterase Test strip Ql (U) Negative NEGATIVE [facility] Nitrite Ql (U) Negative NEGATIVE [facility] pH (U) 6.0 [pH] 5.0 - 9.0 [facility] Protein (U) [Mass/Vol] Negative NEGATIVE mg/dL [facility] Specific gravity (U) [Rel density] High 1.010 - 1.020 [facility] Urobilinogen Qn (U) Normal 0.0 - 1. 0 EU/dL [facility] Urinalysis,Microon 4 Bacteria 1+ Abnormal NONE [facility] Comment on above: Performed By: #### U CESAR CARDONAX #### [facility] [address] [place] [address] Athletic Trainer: Domenica Velázquez MD Epithelial cells LM Ql (Urine sed) 0 TO 2 Normal 0-25 [facility] Comment on above: Performed By: #### U DULCE UAX #### [facility] [address] [place] [address] Athletic Trainer: Domenica Velázquez MD Mucus Strands TRACE Abnormal NONE [facility] Comment on above: Performed By: #### U CESAR CARDONAX #### [facility] [address] [place] [address] Athletic Trainer: Domenica Velázquez MD Urine RBC's 0 TO 2 Normal 0-2 [facility] Comment on above: Performed By: #### U DULCE UASusana #### [facility] [address] [place] [address] Athletic Trainer: Domenica Velázquez MD Urine WBC's None Normal 0-5 [facility] Comment on above: Performed By: #### U MIGUELO, UAX #### [facility] [address] [place] [address] Athletic Trainer: Domenica Velázquez MD BASIC METABOLIC PANLon 12-20 Anion gap [Moles/Vol] 10 mmol/L Normal 5-15 [facility] Comment on above: Performed By: #### C BCA, BMP, FEPR, 2276-4 #### [facility] ([id number]) [address], [address] [place] [address] Calcium [Mass/Vol] 8.9 mg/dL Normal 8.5-10.5 [facility] Comment on above: Performed By: #### C BCA, BMP, FEPR, 2276-4 #### [facility] ([id number]) [address], [address] [place] [address] Chloride [Moles/Vol] 106 mmol/L Normal 98-109 [facility] Comment on above: Performed By: #### C BCA, BMP, FEPR, 2276-4 #### [facility] ([id number]) [address], [address] [place] [address] CO2 [Moles/Vol] 22 mmol/L Normal 22-32 [facility] Comment on above: Performed By: #### C BCA, BMP, FEPR, 2276-4 #### [facility] ([id number]) [address], [address] [place] [address] Creatinine [Mass/Vol] 0.70 mg/dL Normal 0.40-1.00 [facility] Comment on above: Result Comment: METH OD TRACEABLE TO IDMS STANDARD Performed By: #### C BCA, BMP, FEPR, 2276-4 #### [facility] ([id number]) [address] [address] [place] [address] eGFR (CKD-EPI) NON-RACE DEPENDENT >90 Normal >59 [facility] Comment on above: Result Comment: Reported eGFR is based on the CKD-EPI 2020 equation that does not use a race coefficient. Performed By: #### C BCA, BMP, FEPR, 2276-4 #### [facility] ([id number]) [address] [address] [place] [address] Glucose [Mass/Vol] 89 mg/dL Normal 65-99 [facility] Comment on above: Performed By: #### C BCA, BMP, FEPR, 6-4 #### [facility] ([id number]) [address] [address] [place] [address] Potassium [Moles/Vol] 4.2 mmol/L Normal 3.5-5.0 [facility] Comment on above: Performed By: #### C BCA, BMP, FEPR, 6-4 #### [facility] ([id number]) [address] [address] [place] [address] Sodium [Moles/Vol] 138 mmol/L Normal 134-146 [facility] Comment on above: Performed By: #### C BCA, BMP, FEPR, 6-4 #### [facility] ([id number]) [address] [address] [place] [address] Urea nitrogen [Mass/Vol] 18 mg/dL Normal 5-23 [facility] Comment on above: Performed By: #### C BCA, BMP, FEPR, 6-4 #### [facility] ([id number]) [address] [address] [place] [address] CBC AND AUTO DIFFon 10-21-20 24 ABSOLUTE BASOPHIL 0.0 X10E9/L Normal 0.0-0.2 [facility] Comment on above: Performed By: #### C BCA, BMP, FEPR, 2275-4 #### [facility] ([id number]) [address], [address] [place] [address] ABSOLUTE NEUTROPHIL 5.7 X10E9/L Normal 1.5-6.6 [facility] Comment on above: Performed By: #### C BCA, BMP, FEPR, 2275-4 #### [facility] ([id number]) [address], [address] [place] [address] Basophils/100 WBC (Bld) 0.4 % Normal [facility] Comment on above: Performed By: #### C BCA, BMP, FEPR, 2275-06 #### [facility] ([id number]) [address], [address] [place] [address] Eosinophils (Bld) [#/Vol] 0.1 10*3/uL Normal 0.0-0.4 [facility] Comment on above: Performed By: #### C BCA, BMP, FEPR, 2275- #### [facility] ([id number]) [address], [address] [place] [address] Eosinophils/100 WBC (Bld) 1.2 % Normal [facility] Comment on above: Performed By: #### C BCA, BMP, FEPR, 2275- #### [facility] ([id number]) [address], [address] [place] [address] Erythrocyte distribution width (RBC) [Ratio] 14.4 % Normal 11.5-15.0 [facility] Comment on above: Performed By: #### C BCA, BMP, FEPR, 2275- #### [facility] ([id number]) [address], [address] [place] [address] Hematocrit (Bld) [Volume fraction] 37.4 % Normal 35-47 [facility] Comment on above: Performed By: #### C BCA, BMP, FEPR, 2275-4 #### [facility] ([id number]) [address] [address] [place] [address] Hemoglobin (Bld) [Mass/Vol] 12.4 g/dL Normal 11.7-15.5 [facility] Comment on above: Performed By: #### C BCA, BMP, FEPR, 2275-4 #### [facility] ([id number]) [address] [address] [place] [address] Lymphocytes (Bld) [#/Vol] 2.4 10*3/uL Normal 1.0-3.5 [facility] Comment on above: Performed By: #### C BCA, BMP, FEPR, 2275-4 #### [facility] ([id number]) [address] [address] [place] [address] Lymphocytes/100 WBC (Bld) 28.1 % Normal [facility] Comment on above: Performed By: #### C BCA, BMP, FEPR, 2275-4 #### [facility] ([id number]) [address] [facility] [address] [place] [address] MCH (RBC) [Entitic mass] 28.8 pg Normal 27-34 [facility] Comment on above: Performed By: #### C BCA, BMP, FEPR, 2275-4 #### [facility] ([id number]) [address] [facility] [address] [place] [address] MCHC (RBC) [Mass/Vol] 33.1 g/dL Normal 32-36 [facility] Comment on above: Performed By: #### C BCA, BMP, FEPR, 2275-4 #### [facility] ([id number]) [address] [address] [place] [address] MCV (RBC) [Entitic vol] 87 fL Normal 80-100 [facility] Comment on above: Performed By: #### C BCA, BMP, FEPR, 2275-4 #### [facility] ([id number]) [address], [address] [place] [address] Monocytes (Bld) [#/Vol] 0.3 10*3/uL Normal 0-0.9 [facility] Comment on above: Performed By: #### C BCA, BMP, FEPR, 6-4 #### [facility] ([id number]) [address] [address] [place] [address] Monocytes/100 WBC (Bld) 3.0 % Normal [facility] Comment on above: Performed By: #### C BCA, BMP, FEPR, 2275-4 #### [facility] ([id number]) [address] [facility] [address] [place] [address] Neutrophils/100 WBC (Bld) 67.3 % Normal [facility] Comment on above: Performed By: #### C BCA, BMP, FEPR, 2275-4 #### [facility] ([id number]) [address], [facility] [address] [place] [address] Platelet mean volume (Bld) [Entitic vol] 8.8 fL Normal 7-12 [facility] Comment on above: Performed By: #### C BCA, BMP, FEPR, 2275-4 #### [facility] ([id number]) [address] [address] [place] [address] Platelets (Bld) [#/Vol] 325 10*3/uL Normal 150-450 [facility] Comment on above: Performed By: #### C BCA, BMP, FEPR, 6-4 #### [facility] ([id number]) [address] [address] [place] [address] RBC COUNT 4.31 X10E12/L Normal 3.80-5.20 [facility] Comment on above: Performed By: #### C BCA, BMP, FEPR, 2276-4 #### [facility] ([id number]) [address] [address] WBC (Bld) [#/Vol] 8.4 10*3/uL Normal 4.0-11.0 [facility] Comment on above: Performed By: #### C BCA, BMP, FEPR, 2276-4 #### [facility] ([id number]) [address] [address] FERRITINon 12-21-2023 Ferritin [Mass/Vol] 195 ng/mL Normal 11-307 [facility] Comment on above: Performed By: #### C BCA, CMP, 13292-5, TSHR #### [facility] ([id number]) [address] [address] IRON PROFILEon 12-21-2023 Iron [Mass/Vol] 53 ug/dL Normal 50-170 [facility] Comment on above: Performed By: #### C BCA, BMP, FEPR, 2276-4 #### [facility] ([id number]) [address] [address] IRON BINDING 374 ug/dL Normal 250-425 [facility] Comment on above: Performed By: #### C BCA, BMP, FEPR, 2276-4 #### [facility] ([id number]) [address] [address] IRON SATURATION 14 % SATURATION Low 15-50 [facility] Comment on above: Performed By: #### C BCA, BMP, FEPR, 2276-4 #### [facility] ([id number]) [address] [address] [address] ABDOMEN PELVIS W IV CONTR Dar [...] significant stool or gas noted. Evidence of qctc-ve-oxitflcr diverticulosis of proximal sigmoid colon and descending [...] Zoë Nicole MD 10/07/23 Final result Normal [facility] Comp Metabolic Profon 2023 Albumin [Mass/Vol] 4.1 g/dL Normal 3.5-5.2 [facility] Comment on above: Performed By: #### C DP, TROPI, CP, LIP ####[address] [place] [address] Lab Director: Domenica Velázquez MD Albumin/Glob Ratio 1.4 Normal 1.0-2.5 [facility] Comment on above: Performed By: #### C DP, TROPI, CP, LIP ####[address] [place] [address] Lab Director: Domenica Velázquez MD Alkaline Phos 85 U/L Normal 35-104 [facility] Comment on above: Performed By: #### C DP, TROPI, CP, LIP ####[address] [place] [address]83 lab Director: Domenica Velázquez MD ALT [Catalytic activity/Vol] 12 U/L Normal 5-33 [facility] Comment on above: Performed By: #### C DP, TROPI, CP, LIP ####[facility] , [place] 168[address]83 Lab Director: Domenica Velázquez MD Anion gap [Moles/Vol] 11 mmol/L Normal 9-17 [facility] Comment on above: Performed By: #### C DP, TROPI, CP, LIP ####[address] , [place] 4552383 Lab Director: Domenica Velázquez MD AST [Catalytic activity/Vol] 14 U/L Normal <32 [facility] Comment on above: Performed By: #### C DP, TROPI, CP, LIP ####[address] , [place] 7[address]83 Lab Director: Domenica Velázquez MD Bilirubin [Mass/Vol] 0.2 mg/dL Low 0.3-1.2 [facility] Comment on above: Performed By: #### C DP, TROPI, CP, LIP ####[address] , [place] 3177283 Lab Director: Domenica Velázquez MD BUN/CRE Ratio 30 High 9-20 [facility] Comment on above: Performed By: #### C DP, TROPI, CP, LIP ####[address] , [place] 208[address]83 Lab Director: Domenica Velázquez MD Calcium [Mass/Vol] 8.8 mg/dL Normal 8.6-10.4 [facility] Comment on above: Performed By: #### C DP, TROPI, CP, LIP ####[address] , [place] 2207683 Lab Director: Domenica Velázquez MD Chloride [Moles/Vol] 103 mmol/L Normal 98-107 [facility] Comment on above: Performed By: #### C DP, TROPI, CP, LIP ####[address] , [place] 2630383 Lab Director: Domenica Velázquez MD CO2 [Moles/Vol] 25 mmol/L Normal 20-31 [facility] Comment on above: Performed By: #### C DP, TROPI, CP, LIP ####[facility] [place] , [place] 2428183 lab Director: Domenica Velázquez MD Creatinine [Mass/Vol] 0.6 mg/dL Normal 0.5-0.9 [facility] Comment on above: Performed By: #### C DP, TROPI, CP, LIP ####[facility] , [facility] Lab Director: Domenica Velázquez MD GFR/1.73 sq M.predicted among non-blacks MDRD (S/P/Bld) [Vol rate/Area] mL/min/{1.73_m2} Normal >60 [facility] Comment on above: Result Comment: These [...] By: #### C DP, TROPI, CP, LIP ####[address] , [facility] Lab Director: Domenica Velázquez MD Glucose [Mass/Vol] 92 mg/dL Normal 70-99 [facility] Comment on above: Performed By: #### C DP, TROPI, CP, LIP ####[facility] [place] [address] Lab Director: Domenica Velázquez MD Potassium [Moles/Vol] 3.6 mmol/L Low 3.7-5.3 [facility] Comment on above: Performed By: #### C DP, TROPI, CP, LIP ####[address] , [place] 8085083 Lab Director: Domenica Velázquez MD Protein [Mass/Vol] 7.0 g/dL Normal 6.4-8.3 [facility] Comment on above: Performed By: #### C DP, TROPI, CP, LIP ####[address] , [place] 1787283 Lab Director: Domenica Velázquez MD Sodium [Moles/Vol] 139 mmol/L Normal 135-144 [facility] Comment on above: Performed By: #### C DP, TROPI, CP, LIP ####[address] , [place] 2642283 Lab Director: Domenica Velázquez MD Urea nitrogen [Mass/Vol] 18 mg/dL Normal 6-20 [facility] Comment on above: Performed By: #### C DP, TROPI, CP, LIP ####[address] , [place] 765[address]83 Lab Director: Domenica Velázquez MD Lipaseon 10-07-2023 Lipase [Catalytic activity/Vol] 28 U/L Normal 13-60 [facility] Comment on above: Performed By: #### C DP, TROPI, CP, LIP ####[address] , [place] 29[address]83 Lab Director: Domenica Velázquez MD Troponinon 10-07-2023 Troponin, High Sens <6 Normal 0-14 [facility] Comment on above: Result Comment: High Sensitivity Troponin values cannot be compared with other Troponin methodologies. Performed By: #### C DP, TROPI, CP, LIP ####[address] , [place] 7897[address] Lab Director: Domenica Velázquez MD CBC with Diffon 10-06-2023 Abs. Basophil 0.03 k/uL Normal 0.00-0.20 [facility] Comment on above: Performed By: #### C DP, TROPI, CP, LIP ####[address] , [place] [address])[phone] Director: Domenica Velázquez MD Abs.Imm.Granulocyte 0.03 k/uL Normal 0.00-0.30 [facility] Comment on above: Performed By: #### C DP, TROPI, CP, LIP ####[address] , [place] [address]([facility])[phone] Director: Domenica Velázquez MD Abs.Neutrophil (Seg) 6.50 k/uL Normal 1.50-8.10 [facility] Comment on above: Performed By: #### C DP, TROPI, CP, LIP ####[address] [place], [place] [address])[phone] Director: Domenica Velázquez MD Basophils/100 WBC (Bld) 0 % Normal 0-2 [facility] Comment on above: Performed By: #### C DP, TROPI, CP, LIP ####[address] , [place] [address])[phone] Director: Domenica Velázquez MD Eosinophils (Bld) [#/Vol] 0.08 10*3/uL Normal 0.00-0.44 [facility] Comment on above: Performed By: #### C DP, TROPI, CP, LIP ####[address] , [place] [address])[phone] Director: Domenica Velázquez MD Eosinophils/100 WBC (Bld) 1 % Normal 1-4 [facility] Comment on above: Performed By: #### C DP, TROPI, CP, LIP ####[address] , [facility]83[facility])[phone] Director: Domenica Velázquez MD Erythrocyte distribution width (RBC) [Ratio] 13.5 % Normal 11.8-14.4 [facility] Comment on above: Performed By: #### C DP, TROPI, CP, LIP ####[address] , [place] [address] Lab Director: Domenica Velázquez MD Hematocrit (Bld) [Volume fraction] 40.1 % Normal 36.3-47.1 [facility] Comment on above: Performed By: #### C DP, TROPI, CP, LIP ####[address] , [place] [address])[phone] Director: Domenica Velázquez MD Hemoglobin (Bld) [Mass/Vol] 13.4 g/dL Normal 11.9-15.1 [facility] Comment on above: Performed By: #### C DP, TROPI, CP, LIP ####[address] [place] [address] Lab Director: Domenica Velázquez MD Immature granulocytes/100 WBC (Bld) 0 % Normal 0 [facility] Comment on above: Performed By: #### C DP, TROPI, CP, LIP ####[address] , [place] [address] Lab Director: Domenica Velázquez MD Lymphocytes (Bld) [#/Vol] 2.41 10*3/uL Normal 1.10-3.70 [facility] Comment on above: Performed By: #### C DP, TROPI, CP, LIP ####[address] , [place] [address])[phone] Director: Domenica Velázquez MD Lymphocytes/100 WBC (Bld) 25 % Normal 24-43 [facility] Comment on above: Performed By: #### C DP, TROPI, CP, LIP ####[address] , [facility]83 Lab Director: Domenica Velázquez MD MCH (RBC) [Entitic mass] 28.6 pg Normal 25.2-33.5 [facility] Comment on above: Performed By: #### C DP, TROPI, CP, LIP ####[address] [place] [address] Lab Director: Domenica Velázquez MD MCHC (RBC) [Mass/Vol] 33.4 g/dL Normal 28.4-34.8 [facility] Comment on above: Performed By: #### C DP, TROPI, CP, LIP ####[address] [place] [address] Lab Director: Domenica Velázquez MD MCV (RBC) [Entitic vol] 85.7 fL Normal 82.6-102.9 [facility] Comment on above: Performed By: #### C DP, TROPI, CP, LIP ####[address] , [facility] Lab Director: Domenica Velázquez MD Monocytes (Bld) [#/Vol] 0.69 10*3/uL Normal 0.10-1.20 [facility] Comment on above: Performed By: #### C DP, TROPI, CP, LIP ####[address] [place] [address] Lab Director: Domenica Velázquez MD Monocytes/100 WBC (Bld) 7 % Normal 3-12 [facility] Comment on above: Performed By: #### C DP, TROPI, CP, LIP ####[address] [place] [address] Lab Director: Domenica Velázquez MD Neutrophil (Seg) 67 % High 36-65 [facility] Comment on above: Performed By: #### C DP, TROPI, CP, LIP ####[address] , [place] 414[address]83 Lab Director: Domenica Velázquez MD NRBC Automated 0.0 per 100 WBC Normal 0.0 [facility] Comment on above: Performed By: #### C DP, TROPI, CP, LIP ####[facility] [place] , [place] [phone] [facility] Director: Domenica Velázquez MD Platelet mean volume (Bld) [Entitic vol] 10.5 fL Normal 8.1-13.5 [facility] Comment on above: Performed By: #### C DP, TROPI, CP, LIP ####[facility] [place] , [place] [address])[phone] Director: Domenica Velázquez MD Platelets (Bld) [#/Vol] 292 10*3/uL Normal 138-453 [facility] Comment on above: Performed By: #### C DP, TROPI, CP, LIP ####[address] , [place] [address])[phone] Director: Domenica Velázquez MD RBC (Bld) [#/Vol] 4.68 10*6/uL Normal 3.95-5.11 [facility] Comment on above: Performed By: #### C DP, TROPI, CP, LIP ####[address] , [facility]83[facility])[phone] Director: Domenica Velázquez MD WBC (Bld) [#/Vol] 9.7 10*3/uL Normal 3.5-11.3 [facility] Comment on above: Performed By: #### C DP, TROPI, CP, LIP ####[address] , [facility]83[facility])[phone] Director: Domenica Velázquez MD Basic Metabolic Profon 10-04 Anion gap [Moles/Vol] 10 mmol/L Normal 9-17 [facility] Comment on above: Performed By: #### D BASIA, BMP, CDP, TROPI #### [facility] [address] [place], [place] [id number] Athletic Trainer: Domenica Velázquez MD BUN/CRE Ratio 23 High 9-20 [facility] Comment on above: Performed By: #### D BASIA, BMP, CDP, TROPI #### [facility] [address] [place] [address] Athletic Trainer: Domenica Velázquez MD Calcium [Mass/Vol] 8.9 mg/dL Normal 8.6-10.4 [facility] Comment on above: Performed By: #### D BASIA, BMP, CDP, TROPI #### [facility] [address] [place] [address] Athletic Trainer: Domenica Velázquez MD Chloride [Moles/Vol] 105 mmol/L Normal 98-107 [facility] Comment on above: Performed By: #### D BASIA, BMP, CDP, TROPI #### [facility] [address] [place] [address] Athletic Trainer: Domenica Velázquez MD CO2 [Moles/Vol] 26 mmol/L Normal 20-31 [facility] Comment on above: Performed By: #### D BASIA, BMP, CDP, TROPI #### [facility] [address] [place] [address] Athletic Trainer: Domenica Velázquez MD Creatinine [Mass/Vol] 0.6 mg/dL Normal 0.5-0.9 [facility] Comment on above: Performed By: #### D BASIA, BMP, CDP, TROPI #### [facility] [address] [place] [address] Athletic Trainer: Domenica Velázquez MD GFR/1.73 sq M.predicted among non-blacks MDRD (S/P/Bld) [Vol rate/Area] mL/min/{1.73_m2} Normal >60 [facility] Comment on above: Result Comment: These [...] #### D BASIA, BMP, CDP, TROPI #### [facility] [address] [place], [place] [id number] Athletic Trainer: Domenica Velázquez MD Glucose [Mass/Vol] 96 mg/dL Normal 70-99 [facility] Comment on above: Performed By: #### D BASIA, BMP, CDP, TROPI #### [address] [place], [place] [id number] Athletic Trainer: Domenica Velázquez MD Potassium [Moles/Vol] 3.8 mmol/L Normal 3.7-5.3 [facility] Comment on above: Performed By: #### D BASIA, BMP, CDP, TROPI #### [address] [place] [address] Athletic Trainer: Domenica Velázquez MD Sodium [Moles/Vol] 141 mmol/L Normal 135-144 [facility] Comment on above: Performed By: #### D BASIA, BMP, CDP, TROPI #### [address] [place] [address] Athletic Trainer: Domeniac Velázquez MD Urea nitrogen [Mass/Vol] 14 mg/dL Normal 6-20 [facility] Comment on above: Performed By: #### D BASIA, BMP, CDP, TROPI #### [address] [place] [address] Athletic Trainer: Domenica Velázquez MD CBC with Diffon 10-05-2023 Abs. Basophil <0.03 Normal 0.00-0.20 [facility] Comment on above: Performed By: #### D BASIA, BMP, CDP, TROPI #### [address] [place] [address] Athletic Trainer: Domenica Velázquez MD Abs.Imm.Granulocyte 0.03 k/uL Normal 0.00-0.30 [facility] Comment on above: Performed By: #### D BASIA, BMP, CDP, TROPI #### [address] [place], [place] [id number] Athletic Trainer: Domenica Velázquez MD Abs.Neutrophil (Seg) 5.10 k/uL Normal 1.50-8.10 [facility] Comment on above: Performed By: #### D BASIA, BMP, CDP, TROPI #### [address] [place], [place] [id number] Athletic Trainer: Domenica Velázquez MD Basophils/100 WBC (Bld) 0 % Normal 0-2 [facility] Comment on above: Performed By: #### D BASIA, BMP, CDP, TROPI #### [address] [place], [facility] Athletic Trainer: Domenica Velázquez MD Eosinophils (Bld) [#/Vol] 0.11 10*3/uL Normal 0.00-0.44 [facility] Comment on above: Performed By: #### D BASIA, BMP, CDP, TROPI #### [address] [place] [id number] Athletic Trainer: Domenica Velázquez MD Eosinophils/100 WBC (Bld) 1 % Normal 1-4 [facility] Comment on above: Performed By: #### D BASIA, BMP, CDP, TROPI #### [address] [place], [place] [id number] Athletic Trainer: Domenica Velázquez MD Erythrocyte distribution width (RBC) [Ratio] 13.5 % Normal 11.8-14.4 [facility] Comment on above: Performed By: #### D BASIA, BMP, CDP, TROPI #### [address] [place], [place] [phone] Athletic Trainer: Domenica Velázquez MD Hematocrit (Bld) [Volume fraction] 42.6 % Normal 36.3-47.1 [facility] Comment on above: Performed By: #### D BASIA, BMP, CDP, TROPI #### [facility] [address] [place] [address] Athletic Trainer: Domenica Velázquez MD Hemoglobin (Bld) [Mass/Vol] 14.1 g/dL Normal 11.9-15.1 [facility] Comment on above: Performed By: #### D BASIA, BMP, CDP, TROPI #### [address] [place] [address] Athletic Trainer: Domenica Velázquez MD Immature granulocytes/100 WBC (Bld) 0 % Normal 0 [facility] Comment on above: Performed By: #### D BASIA, BMP, CDP, TROPI #### [address] [place] [address] Athletic Trainer: Domenica Velázquez MD Lymphocytes (Bld) [#/Vol] 2.42 10*3/uL Normal 1.10-3.70 [facility] Comment on above: Performed By: #### D BASIA, BMP, CDP, TROPI #### [address] [place] [address] Athletic Trainer: Domenica Velázquez MD Lymphocytes/100 WBC (Bld) 30 % Normal 24-43 [facility] Comment on above: Performed By: #### D BASIA, BMP, CDP, TROPI #### [address] [place] [address] Athletic Trainer: Domenica Velázquez MD MCH (RBC) [Entitic mass] 28.8 pg Normal 25.2-33.5 [facility] Comment on above: Performed By: #### D BASIA, BMP, CDP, TROPI #### [address] [place] [id number] Athletic Trainer: Domenica Velázquez MD MCHC (RBC) [Mass/Vol] 33.1 g/dL Normal 28.4-34.8 [facility] Comment on above: Performed By: #### D BASIA, BMP, CDP, TROPI #### [facility] [address] [place] [address] Athletic Trainer: Domenica Velázquez MD MCV (RBC) [Entitic vol] 87.1 fL Normal 82.6-102.9 [facility] Comment on above: Performed By: #### D BASIA, BMP, CDP, TROPI #### [address] [place] [address] Athletic Trainer: Domenica Velázquez MD Monocytes (Bld) [#/Vol] 0.53 10*3/uL Normal 0.10-1.20 [facility] Comment on above: Performed By: #### D BASIA, BMP, CDP, TROPI #### [facility] [address] [place] [address] Dr. [place], [facility] Athletic Trainer: Domenica Velázquez MD Monocytes/100 WBC (Bld) 7 % Normal 3-12 [facility] Comment on above: Performed By: #### D BASIA, BMP, CDP, TROPI #### [address] [place], [facility] Athletic Trainer: Domenica Velázquez MD Neutrophil (Seg) 62 % Normal 36-65 [facility] Comment on above: Performed By: #### D BASIA, BMP, CDP, TROPI #### [address] [place] [address] Athletic Trainer: Domenica Velázquez MD NRBC Automated 0.0 per 100 WBC Normal 0.0 [facility] Comment on above: Performed By: #### D BASIA, BMP, CDP, TROPI #### [address] [place], [facility] Athletic Trainer: Domenica Velázquez MD Platelet mean volume (Bld) [Entitic vol] 10.9 fL Normal 8.1-13.5 [facility] Comment on above: Performed By: #### D BASIA, BMP, CDP, TROPI #### [facility] [address] [place], [facility] Athletic Trainer: Domenica Velázquez MD Platelets (Bld) [#/Vol] 296 10*3/uL Normal 138-453 [facility] Comment on above: Performed By: #### D BASIA, BMP, CDP, TROPI #### [facility] [address] [place] [address] Athletic Trainer: Domenica Velázquez MD RBC (Bld) [#/Vol] 4.89 10*6/uL Normal 3.95-5.11 [facility] Comment on above: Performed By: #### D BASIA, BMP, CDP, TROPI #### [facility] [address] [place], [facility] Athletic Trainer: Domenica Velázquez MD WBC (Bld) [#/Vol] 8.2 10*3/uL Normal 3.5-11.3 [facility] Comment on above: Performed By: #### D BASIA, BMP, CDP, TROPI #### [address] [place], [facility] Athletic Trainer: Domenica Velázquez MD CT CHEST PULMONARY EMBOLISM [...] Fernando Marcelino MD 10/05/23 Final result Normal [facility] D-Dimer Teston 10-05-2023 D-Dimer Test 0.30 ug/mL FEU Normal 0.00-0.59 [facility] Comment on above: Result Comment: When [...] By: #### D BASIA, BMP, CDP, TROPI ####[address] [place] [address] Lab Director: Domenica Velázquez MD Liver Profileon 10-05-2023 Albumin [Mass/Vol] 4.4 g/dL Normal 3.5-5.2 [facility] Comment on above: Performed By: #### L IVP ####[address] , [place] [phone] Director: Domenica Velázquez MD Albumin/Glob Ratio 1.4 Normal 1.0-2.5 [facility] Comment on above: Performed By: #### L IVP ####[address] , [place] [phone] Director: Domenica Velázquez MD Alkaline Phos 99 U/L Normal 35-104 [facility] Comment on above: Performed By: #### L IVP ####[address] [place] [address] Lab Director: Domenica Velázquez MD ALT [Catalytic activity/Vol] 13 U/L Normal 5-33 [facility] Comment on above: Performed By: #### L IVP ####[address] , [place] [phone] Director: Domenica Velázquez MD AST [Catalytic activity/Vol] 16 U/L Normal <32 [facility] Comment on above: Performed By: #### L IVP ####[address] , [place] [phone] Director: Domenica Velázquez MD Bilirubin [Mass/Vol] 0.2 mg/dL Low 0.3-1.2 [facility] Comment on above: Performed By: #### L IVP ####[address] [place] [address] Lab Director: Domenica Velázquez MD Bilirubin, Indirect Can not be calculated Normal 0.0-1 .0 [facility] Comment on above: Performed By: #### L IVP ####[facility] [place] [address] Lab Director: Domenica Velázquez MD Bilirubin.indirect [Mass/Vol] mg/dL Normal <0.3 [facility] Comment on above: Performed By: #### L IVP ####[facility] [place] [address] Lab Director: Domenica Velázquez MD Protein [Mass/Vol] 7.5 g/dL Normal 6.4-8.3 [facility] Comment on above: Performed By: #### L IVP ####[address] [place] [address] Lab Director: Domenica Velázquez MD Troponinon 10-05-2023 Troponin, High Sens <6 Normal 0-14 [facility] Comment on above: Result Comment: High Sensitivity Troponin values cannot be compared with other Troponin methodologies. Performed By: #### T ROPI ####[address] [place] [address] Lab Director: Domenica Velázquez MD Troponin, High Sens <6 Normal 0-14 [facility] Comment on above: Result Comment: High Sensitivity Troponin values cannot be compared with other Troponin methodologies. Performed By: #### D BASIA, BMP, CDP, TROPI #### [facility] [address] [place] [address] Dr[place], [place] [phone] Athletic Trainer: Domenica Velázquez MD XR CHEST PORTABLEon 10-05-19 24 XR CHEST PORTABLE EXAMINATION: ONE XRAY VIEW [...] Deyanira Lock MD 10/05/23 Final result Normal [facility] CT CERVICAL SPINE WO CONTRAS Ton [...] Andi Montoya MD 04/20/23 Final result Normal [facility] CT Cervical spine WO contras ton 04-20-2023 Radiology Study observation (narrative) [facility] CT HEAD WO CONTRASTon 2023 [...] Andi Montoya MD 04/20/23 Final result Normal [facility] CT Head WO contraston 2023 Radiology Study observation (narrative) [facility] No Panel Informationon 04-[address] abnormal ity identified in the brain. No acute osseous abnormality identified in the cervical spine. [facility] RIS CONSOLIDATED EXAMINATION: CT OF [...] There is no prevertebral soft tissue swelling. [facility] Andi Alvarez MD - 04/20/2023 EXAMINATION: CT [...] osseous abnormality identified in the cervical spine. [facility] No Panel InformationOrdered By: Andi Montoya on 04-20-2023 [facility] [employer] Work Phone: Glucose Glucometer (BldC) [M ass/Vol]on 03-27-2023 Glucose [Mass/Vol] 151 mg/dL High 65-99 [facility] Glucose Poct Glucometerson 0 03-18-2023 Commemt1 Glu2: Cleaned Meter Normal [facility] Comment on above: Result Comment: PERF ORMED BY: [place] [id number] PATHOLOGIST PORTER MARINA SHA VALERA M.D. Performed By: #### G LULS #### Point of Care testing , Glucose [Mass/Vol] 87 mg/dL Normal [facility] Comment on above: Result Comment: [place] Glucose Reference Range is dependent on time and content of last meal. Glucose of more than 200 mg/dL in a nonstressed, ambulatory subject supports the diagnosis of Diabetes Mellitus. Performed By: #### G LULS #### Point of Care testing , HCG,Urineon 03-18-2023 Beta HCG ( test) Ql (U) Negative Normal [facility] Comment on above: Result Comment: PERF ORMED BY: [place] [address] PATHOLOGIST PORTER MARINA SHA VALERA M.D. Performed By: #### U HCG #### [address] CBC AND AUTO DIFFon 03-16-19 24 ABSOLUTE BASOPHIL 0.0 X10E9/L Normal 0.0-0.2 [facility] Comment on above: Performed By: #### C BCA, CMP, 15382-8, TSHR #### [facility] ([id number]) [address], [address] [place] [address] ABSOLUTE NEUTROPHIL 7.7 X10E9/L High 1.5-6.6 [facility] Comment on above: Performed By: #### C BCA, CMP, 71884-4, TSHR #### [facility] ([id number]) [address], [address] [place] [address] Basophils/100 WBC (Bld) 0.3 % Normal [facility] Comment on above: Performed By: #### C JAHAIRA BURGESS, 92168-7, TSHR #### [facility] ([id number]) [address], [address] [place] [address] Eosinophils (Bld) [#/Vol] 0.1 10*3/uL Normal 0.0-0.4 [facility] Comment on above: Performed By: #### C JAHAIRA BURGESS, 85754-5, TSHR #### [facility] ([id number]) [address], [address] [place] [address] Eosinophils/100 WBC (Bld) 1.1 % Normal [facility] Comment on above: Performed By: #### Terrell BURGESS CMP, 58280-9, TSHR #### [facility] ([id number]) [address], [address] [place] [address] Erythrocyte distribution width (RBC) [Ratio] 14.6 % Normal 11.5-15.0 [facility] Comment on above: Performed By: #### Terrell BURGESS CMP, 16633-3, TSHR #### [facility] ([id number]) [address], [address] [place] [address] Hematocrit (Bld) [Volume fraction] 45.7 % Normal 35-47 [facility] Comment on above: Performed By: #### C ADIYTA CMP, 11943-5, TSHR #### [facility] ([id number]) [address], [address] [place] [address] Hemoglobin (Bld) [Mass/Vol] 15.0 g/dL Normal 11.7-15.5 [facility] Comment on above: Performed By: #### Terrell BURGESS CMP, 13029-6, TSHR #### [facility] ([id number]) [address], [address] [place] [address] Lymphocytes (Bld) [#/Vol] 2.4 10*3/uL Normal 1.0-3.5 [facility] Comment on above: Performed By: #### C ADITYA CMP, 96060-0, TSHR #### [facility] ([id number]) [address], [facility] [address] [place] [address] Lymphocytes/100 WBC (Bld) 22.1 % Normal [facility] Comment on above: Performed By: #### Terrell BURGESS CMP, 28994-4, TSHR #### [facility] ([id number]) [address], [facility] [address] [place] [address] MCH (RBC) [Entitic mass] 29.0 pg Normal 27-34 [facility] Comment on above: Performed By: #### Terrell BURGESS CMP, 08816-7, TSHR #### [facility] ([id number]) [address], [address] [place] [address] MCHC (RBC) [Mass/Vol] 32.8 g/dL Normal 32-36 [facility] Comment on above: Performed By: #### Terrell BURGESS CMP, 03407-3, TSHR #### [facility] ([id number]) [address], [facility] [address] [place] [address] MCV (RBC) [Entitic vol] 88 fL Normal 80-100 [facility] Comment on above: Performed By: #### Terrell BURGESS CMP, 95379-2, TSHR #### [facility] ([id number]) [address] [address] [place] [address] Monocytes (Bld) [#/Vol] 0.6 10*3/uL Normal 0-0.9 [facility] Comment on above: Performed By: #### Terrell BURGESS CMP, 99397-8, TSHR #### [facility] ([id number]) [address], [address] [place] [address] Monocytes/100 WBC (Bld) 5.7 % Normal [facility] Comment on above: Performed By: #### Terrell BURGESS, CMP, 19267-4, TSHR #### [facility] ([id number]) [address], [facility] [address] [place] [address] Neutrophils/100 WBC (Bld) 70.8 % Normal [facility] Comment on above: Performed By: #### C ADITYA, CMP, 33636-4, TSHR #### [facility] ([id number]) [address], [address] [place] [address] Platelet mean volume (Bld) [Entitic vol] 9.7 fL Normal 7-12 [facility] Comment on above: Performed By: #### Terrell BURGESS, CMP, 96863-6, TSHR #### [facility] ([id number]) [address], [address] [place] [address] Platelets (Bld) [#/Vol] 303 10*3/uL Normal 150-450 [facility] Comment on above: Performed By: #### Terrell BCA, CMP, 85792-2, TSHR #### [facility] ([id number]) [address], [facility] [address] [place] [address] RBC COUNT 5.17 X10E12/L Normal 3.80-5.20 [facility] Comment on above: Performed By: #### Terrell BURGESS, CMP, 32884-1, TSHR #### [facility] ([id number]) [address] [address] [place] [address] WBC (Bld) [#/Vol] 10.9 10*3/uL Normal 4.0-11.0 [facility] Comment on above: Performed By: #### Terrell BURGESS, CMP, 19739-3, TSHR #### [facility] ([id number]) [address], [address] [place] [address] COMPREHENSIVE METABOLIC PANE Dirk 03-16-2023 Albumin [Mass/Vol] 4.7 g/dL Normal 3.2-5.3 [facility] Comment on above: Performed By: #### C BCA, CMP, 84484-8, TSHR #### [facility] ([id number]) [address], [address] [place] [address] ALP [Catalytic activity/Vol] 74 U/L Normal 39-130 [facility] Comment on above: Performed By: #### C BCA, CMP, 12127-0, TSHR #### [facility] ([id number]) [address], [address] [place] [address] ALT [Catalytic activity/Vol] 22 U/L Normal 0-31 [facility] Comment on above: Performed By: #### C BCA, CMP, 38562-3, TSHR #### [facility] ([id number]) [address], [address] [place] [address] Anion gap [Moles/Vol] 12 mmol/L Normal 5-15 [facility] Comment on above: Performed By: #### C BCA, CMP, 34646-3, TSHR #### [facility] ([id number]) [address], [address] [place] [address] AST [Catalytic activity/Vol] 20 U/L Normal 0-41 [facility] Comment on above: Performed By: #### C BCA, CMP, 70813-9, TSHR #### [facility] ([id number]) [address], [address] [place] [address] Bilirubin [Mass/Vol] 0.5 mg/dL Normal 0.3-1.2 [facility] Comment on above: Performed By: #### C BCA, CMP, 05354-0, TSHR #### [facility] ([id number]) [address], [address] [place] [address] Calcium [Mass/Vol] 9.9 mg/dL Normal 8.5-10.5 [facility] Comment on above: Performed By: #### C JAHAIRA BURGESS, 22291-9, TSHR #### [facility] ([id number]) [address] [address] [place] [address] Chloride [Moles/Vol] 105 mmol/L Normal 98-109 [facility] Comment on above: Performed By: #### C JAHAIRA BURGESS, 85940-3, TSHR #### [facility] ([id number]) [address] [address] [place] [address] CO2 [Moles/Vol] 25 mmol/L Normal 22-32 [facility] Comment on above: Performed By: #### C JAHAIRA BURGESS, 22264-8, TSHR #### [facility] ([id number]) [address] [address] [place] [address] Creatinine [Mass/Vol] 0.74 mg/dL Normal 0.40-1.00 [facility] Comment on above: Result Comment: METH OD TRACEABLE TO IDMS STANDARD Performed By: #### C JAHAIRA BRUGESS, 44007-7, TSHR #### [facility] ([id number]) [address] [address] [place] [address] eGFR (CKD-EPI) NON-RACE DEPENDENT >90 Normal >59 [facility] Comment on above: Result Comment: Reported eGFR is based on the CKD-EPI 2020 equation that does not use a race coefficient. Performed By: #### C JAHAIRA BURGESS, 06459-5, TSHR #### [facility] ([id number]) [address] [address] [place] [address] Glucose [Mass/Vol] 143 mg/dL High 65-99 [facility] Comment on above: Performed By: #### C JAHAIRA BURGESS, 06408-8, TSHR #### [facility] ([id number]) [address], [address] [place] [address] Potassium [Moles/Vol] 3.8 mmol/L Normal 3.5-5.0 [facility] Comment on above: Performed By: #### C ADITYA, CMP, 45039-7, TSHR #### [facility] ([id number]) [address], [address] [place] [address] Protein [Mass/Vol] 7.8 g/dL Normal 6.0-8.0 [facility] Comment on above: Performed By: #### C ADITYA CMP, 44709-6, TSHR #### [facility] ([id number]) [address], [address] [place] [address] Sodium [Moles/Vol] 142 mmol/L Normal 134-146 [facility] Comment on above: Performed By: #### Terrell BURGESS, CMP, 11588-3, TSHR #### [facility] ([id number]) [address], [address] [place] [address] Urea nitrogen [Mass/Vol] 17 mg/dL Normal 5-23 [facility] Comment on above: Performed By: #### Terrell BCA, CMP, 34996-3, TSHR #### [facility] ([id number]) [address], [address] [place] [address] HGB A1C (GLYCO-HGB)on 2023 Glucose [Mass/Vol] 117 mg/dL Normal [facility] Comment on above: Performed By: #### C BCA, CMP, 65327-3, TSHR #### [facility] ([id number]) [address], [address] [place] [address] HbA1c (Bld) [Mass fraction] 5.7 % High 4.4-5.6 [facility] Comment on above: Result Comment: NOTE ADA Guidelines Result HgbA1c Normal : less than 5.7 % Prediabetes : 5.7 % to 6.4 % Diabetes : > 6.4 % Use with caution in patients with abnormal hemoglobin variants as the half-life of red blood cells and in vivo glycation rates are affected. Performed By: #### Terrell BURGESS, JAHAIRA, 49511-1, TSHR #### [facility] ([id number]) [address], [address] [place] [address] Lipid 1996 panelon 4 Cholesterol [Mass/Vol] 132 mg/dL Low 150-200 [facility] Comment on above: Performed By: ###Christopher Tejada BCA, JAHAIRA, 42028-8, TSHR #### [facility] ([id number]) [address], [facility] [address] [place] [address] Cholesterol in HDL [Mass/Vol] 58 mg/dL Normal >39 [facility] Comment on above: Result Comment: HDL <40 mg/dL - High Risk HDL > or = 40mg/dL- Desirable HDL >60 mg/dL - Negative Risk Performed By: ###Christopher Tejada BCA, JAHAIRA, [id number], TSHR #### [facility] ([id number]) [address], [address] [place] [address] Cholesterol in LDL [Mass/Vol] 51 mg/dL Normal <130 [facility] Comment on above: Result Comment: LDL <100 mg/dL - Desirable LDL >160 mg/dL - High Risk Performed By: #### Terrell BURGESS, JAHAIRA, 19647-2, TSHR #### [facility] ([id number]) [address], [address] [place] [address] Cholesterol in VLDL [Mass/Vol] 23 mg/dL Normal 0-30 [facility] Comment on above: Performed By: #### C BCA, CMP, 50667-3, TSHR #### [facility] ([id number]) [address], [address] [place] [address] CHOLESTEROL:HDL 2.3 Normal 1.0-5.0 [facility] Comment on above: Performed By: #### C BCA, CMP, 18381-7, TSHR #### [facility] ([id number]) [address], [address] [place] [address] Triglyceride [Mass/Vol] 114 mg/dL Normal 27-150 [facility] Comment on above: Performed By: #### C BCA, CMP, 34373-2, TSHR #### [facility] ([id number]) [address], [address] [place] [address] MAMM SCREENING BILATERAL W C concrete rod buster 03-16-2023 MAMM SCREENING BILATERAL W CAD MAMM [...] 0A a ADDITIONAL I Normal [facility] TSH WITH REFLEXon 03-16-2023 TSH 0.55 uIU/mL Normal 0.49-4.67 [facility] Comment on above: Performed By: #### C BCA, CMP, 75208-5, TSHR #### [facility] ([id number]) [address], [address] [place] [address] PT - Assessmentson 3 PT - Assessments [id number]#1.00CD:12 [address] [facility] ST - Assessmentson 3 ST - Assessments [id number]#1.00CD:127 Normal [facility] Consenton 09-25-2022 Consent [id number]#1.00CD:127 Normal [facility] Outside Recordson 2022 Outside Records [id number]#1.00CD:127 Normal [facility] ST - Orderson 2022 ST - Orders [id number]#1.00CD:[address] [facility] [address] - Orders [id number]#1.00CD:127 Normal [facility] ST - Otheron 2022 ST - Other [id number]#1.00CD:127 Normal [facility] PAP ACOG PANEL 2: 30 to 65on 05-27-2022 . . Normal [facility] Comment on above: Result Comment: Perf ormed at: WB Performed By: #### 4 [id number] #### [facility] [address] [place] [address] Dr. Do Aguilar Age Gdln ACOG Testing 30-65 Normal [facility] Comment on above: Performed By: #### 4 [id number] #### [facility] [address] [place] [address] Dr. Do Aguilar DIAGNOSIS: Comment Normal [facility] Comment on above: Result Comment: NEGA TIVE FOR INTRAEPITHELIAL LESION OR MALIGNANCY. Performed at: WB Performed By: #### 4 [id number] #### [facility] [address] [place] [address] Dr. Do Aguilar HPV Aptima Negative Normal Negative [facility] Comment on above: Result Comment: This nucleic acid amplification test detects fourteen high-risk HPV types (16,18,31,33,35,39,45,51,52,56,58,59,66,68) without differentiation. Performed at: =G Performed By: #### 4 [id number] #### [facility] [address] [place] [address] Dr. Do Aguilar HPV Genotype Reflex Comment Normal [facility] Comment on above: Result Comment: Crit eria not met, HPV Genotype not performed. Performed at: WB Performed By: #### 4 [id number] #### [facility] [address] [place] [address] Dr. Do Aguilar Methodology: Comment [facility] Comment on above: Result Comment: This liquid based ThinPrep(R) pap test was screened with the use of an image guided system. Performed at: WB Performed By: #### 4 [id number] #### [facility] [address] [place] [address] Dr. Do Aguilar Note: Comment Normal [facility] Comment on above: Result Comment: The Pap smear is a screening test designed to aid in the detection of premalignant and malignant conditions of the uterine cervix. It is not a diagnostic procedure and should not be used as the sole means of detecting cervical cancer. Both false-positive and false-negative reports do occur. . Performed at: WB Performed By: #### 4 [id number] #### [facility] [address] [place] [address] Dr. Do Aguilar Performed by: Comment Normal [facility] Comment on above: Result Comment: Melissa ntha Milagros Madie, In Class Special Education Teacher (ASCP) Performed at: WB Performed By: #### 4 [id number] #### [facility] [address] [place] [address] Dr. Do Aguilar Specimen adequacy: Comment Normal [facility] Comment on above: Result Comment: Sati sfactory for evaluation. Endocervical and/or squamous metaplastic cells (endocervical component) are present. Performed at: WB Performed By: #### 4 [id number] #### [facility] [address] [address] [address] Do Aguilar HEPATITIS C AB CASCADE TO QU ANT PCR GENOon 02-18-2022 HCV AB <0.1 Normal 0.0-0.9 [facility] Comment on above: Performed By: #### H EPCASC #### [facility] [address] [place] [address] Dr. Do Aguilar Interpretation: Comment Normal [facility] Comment on above: Result Comment: Nega tive Not infected with HCV, unless recent infection is suspected or other evidence exists to indicate HCV infection. Performed By: #### H EPCASC #### [facility] [address] [place] [address] Dr. Do Aguilar LIVER PROFILEon 02-17-2022 Albumin [Mass/Vol] 3.6 g/dL Normal 3.4-5.[address] [facility] Comment on above: Performed By: #### L IVER #### [facility] [address] [place] [address] Dr. Do Aguilar Albumin/Globulin [Mass ratio] 0.9 {ratio} Normal [facility] Comment on above: Performed By: #### L IVER #### [facility] [address] [place] [address] Dr. Do Aguilar ALP [Catalytic activity/Vol] 79 U/L Normal 46-116 [facility] Comment on above: Performed By: #### L IVER #### [facility] [address] [place] [address] Dr. Do Aguilar ALT [Catalytic activity/Vol] 51 U/L Normal 14-59 [facility] Comment on above: Performed By: #### L IVER #### [facility] [address] [address] [address] Do Aguilar AST [Catalytic activity/Vol] 33 U/L Normal 15-37 [facility] Comment on above: Performed By: #### L IVER #### [facility] [address] [address] [address] Do Aguilar BILI, CONJUGATED 0.1 mg/dL Normal 0.0-0.2 [facility] Comment on above: Performed By: #### L IVER #### [facility] [address] [place] [address] Dr. Do Aguilar Bilirubin [Mass/Vol] 0.3 mg/dL Normal 0.2-1.0 [facility] Comment on above: Performed By: #### L IVER #### [facility] [address] [place] [address] Dr. Do Aguilar Globulin (S) [Mass/Vol] 4.2 g/dL Normal [facility] Comment on above: Performed By: #### L IVER #### [facility] [address] [place] [address] Dr. Do Aguilar Protein [Mass/Vol] 7.8 g/dL Normal 6.4-8.[address] [facility] Comment on above: Performed By: #### L IVER #### [facility] [address] [address] [address] Do Aguilar TSHon 02-17-2022 TSH 0.457 uIU/mL Normal 0.358-3.74 0 [facility] Comment on above: Performed By: #### T SH #### [facility] [address] [place] [address] Dr. Do Aguilar VITAMIN B12on 02-17-2022 Cobalamin (Vitamin B12) [Mass/Vol] 1864.0 pg/mL Critically high 193.0-986. 0 [facility] Comment on above: Performed By: #### V ITB12 #### [facility] [address] [place] [address] Dr. Do Aguilar History and Physicalon 12-04 History and Physical [id number]#[facility] - Surgeon/P godwin 12-04-2016 Operative Report - Surgeon/Physician [id number]#1.00[facility] Coding Summaryon 11-26-2016 Coding Summary CODING DATE: 017 [facility] STATUS: Home PAYOR: Medicaid HMO ADMIT DX: REASON FOR VISIT DX: R10.13 Epigastric pain R10.11 Right upper quadrant pain FINAL DX: PRINCIPAL: K29.70 Gastritis, unspecified, without bleeding SECONDARY: PROCEDURES DOCTOR NAME DATE 46859 Esophagogastroduodenrajesh , Juan Ramon Jean MD 11/21/2016 flexible, transoral; with biopsy, single or multiple NOTE: The code number assigned matches the documented diagnosis and / or procedure in the patient's chart. However, the narrative phrase printed from the coding software may appear abbreviated, or result in slightly different terminology. Coded By: Rosalba Laureano Date Saved: 11/26/2016 01:[address] [facility] Consent Formson 11-24-2016 Consent Forms [id number]#1.00[facility] Intraoperative Noteon 2016 Intraoperative Note [id number]#1.00[facility] Intraoperative Note [id number]#1.00[facility] - [facility]geon/P godwin 11-24-2016 Operative Report - Surgeon/Physician DATE OF PROCEDURE: 11/21/2016PREOPERATIVE DIAGNOSIS: Epigastric pain/right upper quadrant pain.POSTOPERATIVE DIAGNOSIS: Moderate gastritis.PROCEDURE PERFORMED: EGD with biopsy x1 from the antrum of the stomach forH. pylori testing.SURGEON: Juan Ramon Jean M.D.ANESTHESIA: Conscious sedation with Versed 6 mg IV, Demerol 50 mg IV.FINDINGS: As above.DISPOSITION: To the [facility] area in fair condition.INDICATIONS: The patient [...] in two weeks.Juan Ramon Jean M.D.JOB #: [id number]: 11/21/2016T: 11/21/2016[Electronically Signed on: 12/03/2016 07:09 EDT] Juan Ramon Jean MD Generated Domain User for [id number][Verified on: 12/03/2016 07:09 EDT] Juan Ramon Jean MD[Transcribed on: 11/21/2016 11:37 EDT][facility] Telemetry Stripson 11-24-201 7 Telemetry Strips [id number]#[facility].00[facility] [id number]#1.00[facility] H. Pylori Gastricon 11-22-19 H. Pylori Rico Int Ctrl Pass Normal [facility] Comment on above: Order Comment: H. (A NTRUM) Result Comment: Pass Performed By: #### 2 [id number] ####[facility] (DEFAULT)[address] [place] [address] H. Pylori Gastric Negative Normal Negative [facility] Comment on above: Order Comment: H. (A NTRUM) Result Comment: Nega tive Performed By: #### 2 [id number] ####[facility] (DEFAULT)[address] [place] [address] Inpatient Clinical Summaryon 11-21-2016 Inpatient Clinical Summary [facility] SURGERYClinical Discharge SummaryPERSON INFORMATIONName ROSE KARMA BANEGAS Age 36 Years 80Sex FEMALE Language [place] PCP Oscar OLIVAital Status Med Service Ambulatory Surgery[employer] [id number] Acct# Arrival 11/21/16 07:22:21Visit Reason EGD - EPIGASTRIC ABDOMINAL PAIN Acuity LOS 013 23:19Address:[address] [place] [address]Tjjevdi:PROVIDER INFORMATIONVITALS INFORMATIONVital Sign Triage LatestTemp OralTemp Temporal 36.4 DegC 36.4 DegCTemp IntravascularTemp AxillaryTemp Gwaofo44 Sat 100 % 97 %Respiratory Rate 16 [...] Disposition:Discharge Location:DEPART REASON INCOMPLETE INFORMATIONPATIENT EDUCATION INFORMATIONInstructions:Fo cobyw up:With: Address: When:Juan Ramon Jean [address] [place] [address] Business (1) Within 2 to 4 weeksComments:Call for follow up appointmentWith: Address: When:DOMENICA OLIVA [address] [place] [address] [phone] Business (1)DIAGNOSISAcute gastritisComment:PHYS DOC NOTES Normal [facility] Inpatient Patient Summaryon 11-21-2016 Inpatient Patient Summary [facility] [place] [address] patient Discharge InstructionsName: KARMA SRDOB: [birth year] Address: [address] [place] [address] Care Provider:Name: DOMENICA OLIVAPhone: Discharge Diagnosis: Acute [...] or business decisions or sign any legal documentsOhio [facility] University [facility] would like to thank you for allowing us to assist you with your healthcare needs. The following includes patient education materials and information regarding your injury/illness.KARMA SR has been given the following list of follow-up instructions, prescriptions, and patient education materials:Follow-up InstructionsWith: Address: When:Juan Ramon Jean [address] [place] [address] [phone] Business (1) Within 2 to 4 weeksComments:Call for follow up appointmentWith: Address: When:DOMENICA OLIVA [address] [place] [phone] Business (1)MedicationsDuring the course of your visit, [...] Antibiotics Ebony.[place]. Department of Health and Human ServicesVeterans Health Administrationers for Disease Control and Prevention October 2013 [facility] ordon 11-21-2016 [facility] Endo Intraoperative Record [facility] End[facility] Intra-Op Record Summary Primary Physician: Juan Ramon Jean MD Finalized Date/Time: 11/21/16 08:37:38 Pt. Name: KARMA SR/Sex: 1980 FEMALE Med Rec #: [id number] Physician: Juan Ramon Jean MD Financial #: [id number] Pt. Type: D Room/Bed: / Admit/Disch: 11/21/16 [...] Jane RN Role Performed Surgeon - Primary Production Control Specialist Production Control Specialist Time In 11/21/16 08:06:00 11/21/16 08:06:00 11/21/16 [...] Freetext Reason for Unfinalizing 11/21/16 08:37 [facility] List Normal [facility] MAG[facility] Endo Postoperative Benjamin rdon 11-21-2016 [facility] Endo Postoperative Record [facility] Endo Phase II Record Summary Primary Physician: Juan Ramon Jean MD Finalized Date/Time: 11/21/16 10:02:07 Pt. Name: KARMA SR/Sex: 1980 FEMALE Med Rec #: [id number] Physician: Juan Ramon Jean MD Financial #: [id number] Pt. Type: D Room/Bed: / Admit/Disch: 11/21/16 07:22:21 - Institution: [facility] II Case Times EN MAGR Pre-Care Text: [...] By: Cammy Barroso RN 11/21/16 10:[address] [facility] MAGR Endo Preoperative Recor don 11-21-2016 [facility] Endo Preoperative Record [facility] Endo Pre-Op Record Summary Primary Physician: Juan Ramon Jean MD Finalized Date/Time: 11/21/16 08:27:58 Pt. Name: KARMA SR/Sex: 1980 FEMALE Med Rec #: [id number] Physician: Juan Ramon Jean MD Financial #: [id number] Pt. Type: D Room/Bed: / Admit/Disch: 11/21/16 [...] By: Cammy Barroso RN 11/21/16 08:[address] [facility] Test Urine 1on U Preg Negative [facility] Comment on above: Result Comment: Nega tive Performed By: #### 3 [id number] ####[facility] (DEFAULT)[address] [place] [address] U Preg Internal Control Pass [facility] Comment on above: Result Comment: Pass Performed By: #### 3 [id number] ####[facility] (DEFAULT)[address] [place] [address] Vital Signs Date Time Vital Sign Value Performing Clinician Facility 04-28-2024 10:28-0500 Body height 160 cm Mendez Cardoso DO Work Phone: [facility] 04-28-2024 10:28-0500 Body mass index (BMI) [Ratio] 38.79 kg/m2 Mendez Cardoso DO Work Phone: [facility] 04-28-2024 10:28-0500 Body weight 99.34 kg Mendez Cardoso DO Work Phone: [facility] 04-18-2024 10:57-0500 Body mass index (BMI) [Ratio] 38.79 kg/m2 Roel Garber DO Work Phone: [facility] 04-18-2024 10:57-0500 Body weight 99.34 kg Roelyuliya Arto DO Work Phone: [facility] 04-18-2024 10:57-0500 Diastolic blood pressure 84 mm[Hg] Roel Shirlene DO Work Phone: [facility] 04-18-2024 10:57-0500 Systolic blood pressure 138 mm[Hg] Roelyuliya Arto DO Work Phone: [facility] 04-07-2024 10:31-0500 Body height 160 cm Cleo Zambrano MD Work Phone: [facility] 04-07-2024 10:31-0500 Body mass index (BMI) [Ratio] 39.33 kg/m2 Cleo Zambrano MD Work Phone: [facility] 04-07-2024 10:31-0500 Body weight 100.7 kg Cleo Zambrano MD Work Phone: [facility] 04-07-2024 10:31-0500 Diastolic blood pressure 82 mm[Hg] Cleo Zambrano MD Work Phone: [facility] 04-07-2024 10:31-0500 Heart rate 107 /min Cleo Zambrano MD Work Phone: [facility] 04-07-2024 10:31-0500 Respiratory rate 16 /min Cleo Zambrano MD Work Phone: [facility] 04-07-2024 10:31-0500 SaO2% (BldA) [Mass fraction] 98 % Cleo Zambrano MD Work Phone: [facility] 04-07-2024 10:31-0500 Systolic blood pressure 122 mm[Hg] Cleo Zambrano MD Work Phone: [facility] 01-21-2024 09:35-0500 Body height 160.02 cm Rory Beebemo CNC MILL OPERATOR-BC Work Phone: [facility] 01-21-2024 09:35-0500 Body mass index (BMI) [Ratio] 38.8 kg/m2 Rory Shammo CNC MILL OPERATOR-BC Work Phone: [facility] 01-21-2024 09:35-0500 Body weight 99.4 kg Rory Shammo CNC MILL OPERATOR-BC Work Phone: [facility] 01-13-2024 17:30-0500 Diastolic blood pressure 71 mm[Hg] Lisette Junior DO Work Phone: [facility] 01-13-2024 17:30-0500 Heart rate 95 /min Lisette Junior DO Work Phone: [employer] 01-13-2024 17:30-0500 SaO2% (BldA) [Mass fraction] 99 % Lisette Junior DO Work Phone: [facility] [employer] 01-13-2024 17:30-0500 Systolic blood pressure 131 mm[Hg] Lisette Junior DO Work Phone: [facility] [employer] 01-13-2024 15:30-0500 Respiratory rate 16 /min Lisette Junior DO Work Phone: [employer] 01-13-2024 14:24-0500 Body height 160 cm Lisette Junior DO Work Phone: [employer] 01-13-2024 14:24-0500 Body mass index (BMI) [Ratio] 37.55 kg/m2 Lisette Junior DO Work Phone: [employer] 01-13-2024 14:24-0500 Body temperature 98.1 [degF] Lisette Junior DO Work Phone: [facility] 01-13-2024 14:24-0500 Body weight 96.16 kg Lisette Junior DO Work Phone: [facility] 11-30-2023 11:10-0400 Body height 160 cm Brittany Neville PRIMING MACHINE OPERATOR Work Phone: [facility] 11-30-2023 11:10-0400 Body mass index (BMI) [Ratio] 35.96 kg/m2 Brittany Spencerr PRIMING MACHINE OPERATOR Work Phone: [facility] 11-30-2023 11:10-0400 Body weight 92.08 kg Brittany Spencerr PRIMING MACHINE OPERATOR Work Phone: [facility] 11-30-2023 10:26-0400 Diastolic blood pressure 70 mm[Hg] Brittany Neville PRIMING MACHINE OPERATOR Work Phone: [facility] 11-30-2023 10:26-0400 Heart rate 90 /min Brittany Spencerr PRIMING MACHINE OPERATOR Work Phone: [facility] 11-30-2023 10:26-0400 SaO2% (BldA) [Mass fraction] 96 % Brittany Spencerr PRIMING MACHINE OPERATOR Work Phone: [facility] 11-30-2023 10:26-0400 Systolic blood pressure 118 mm[Hg] Brittany Neville PRIMING MACHINE OPERATOR Work Phone: [facility] 05-21-2023 11:22-0400 Body height 160.02 cm [facility] 05-21-2023 11:22-0400 Body mass index (BMI) [Ratio] 36.5 kg/m2 [facility] 05-21-2023 11:22-0400 Body weight 93.44 kg [facility] 05-21-2023 10:39-0400 Body height 160.02 cm [facility] 05-21-2023 10:39-0400 Body mass index (BMI) [Ratio] 36.5 kg/m2 [facility] 05-21-2023 10:39-0400 Body weight 93.49 kg [facility] 05-21-2023 10:39-0400 Diastolic blood pressure 77 mm[Hg] [facility] 05-21-2023 10:39-0400 Heart rate 105 /min [facility] 05-21-2023 10:39-0400 Respiratory rate 18 /min [facility] 05-21-2023 10:39-0400 SaO2% (BldA) [Mass fraction] 95 % [facility] 05-21-2023 10:39-0400 Systolic blood pressure 114 mm[Hg] [facility] 04-20-2023 12:41-0500 Body mass index (BMI) [Ratio] 36.49 kg/m2 Shawna Rumschlag DO Work Phone: [facility] 04-20-2023 12:41-0500 Body weight 93.44 kg Shawna Rumschlag DO Work Phone: [facility] [employer] 04-20-2023 12:41-0500 Diastolic blood pressure 76 mm[Hg] Shawna Rumschlag DO Work Phone: [facility] [employer] 04-20-2023 12:41-0500 Heart rate 83 /min Shawna Rumschlag DO Work Phone: [facility] [employer] 04-20-2023 12:41-0500 Respiratory rate 16 /min Shawna Rumschlag DO Work Phone: [facility] [employer] 04-20-2023 12:41-0500 SaO2% (BldA) [Mass fraction] 98 % Shawna Rumschlag DO Work Phone: [facility] [employer] 04-20-2023 12:41-0500 Systolic blood pressure 129 mm[Hg] Shawna Rumschlag DO Work Phone: [facility] 04-20-2023 12:39-0500 Body temperature 97.3 [degF] Shawna Rumschlag DO Work Phone: [facility] 03-18-2023 11:30-0500 Diastolic blood pressure 84 mm[Hg] MD Yo Blank Work Phone: [facility] 03-18-2023 11:30-0500 Heart rate 95 /min MD Yo Blank Work Phone: [facility] 03-18-2023 11:30-0500 Respiratory rate 16 /min MD Yo Blank Work Phone: [facility] 03-18-2023 11:30-0500 SaO2% (BldA) [Mass fraction] 99 % MD Yo Blank Work Phone: [facility] 03-18-2023 11:30-0500 Systolic blood pressure 123 mm[Hg] MD Yo Blank Work Phone: [facility] 03-05-2023 09:15-0500 Body height 160.02 cm Gayathri Scally Other [employer] Other 03-05-2023 09:15-0500 Body mass index (BMI) [Ratio] 37.57 kg/m2 Gayathri Scally Other [employer] Other 03-05-2023 09:15-0500 Body weight 96.21 kg Gayathri Scally Other [employer] Other 03-05-2023 09:15-0500 Diastolic blood pressure 89 mm[Hg] Gayathri Scally Other [employer] Other 03-05-2023 09:15-0500 Respiratory rate 18 /min Gayathri Scally Other [employer] Other 03-05-2023 09:15-0500 SaO2% (BldA) [Mass fraction] 96 % Gayathri Adams Other [employer] Other 03-05-2023 09:15-0500 Systolic blood pressure 122 mm[Hg] Gayathri Adams Other [employer] Other 03-02-2023 19:24-0500 Body height 160 cm Sil Sullivan DO Work Phone: [employer] [facility] [employer] 03-02-2023 19:24-0500 Body mass index (BMI) [Ratio] 36.31 kg/m2 Sil Sullivan DO Work Phone: [facility] 03-02-2023 19:24-0500 Body temperature 98.29 [degF] Sil Sullivan DO Work Phone: [employer] [facility] 03-02-2023 19:24-0500 Body weight 92.99 kg Sil Sullivan DO Work Phone: [facility] 03-02-2023 19:24-0500 Diastolic blood pressure 98 mm[Hg] Sil Sullivan DO Work Phone: [facility] 03-02-2023 19:24-0500 Heart rate 82 /min Sil Sullivan DO Work Phone: [facility] 03-02-2023 19:24-0500 Respiratory rate 18 /min Sil Sullivan DO Work Phone: [facility] 03-02-2023 19:24-0500 SaO2% (BldA) [Mass fraction] 98 % Sil Sullivan DO Work Phone: [facility] 03-02-2023 19:24-0500 Systolic blood pressure 139 mm[Hg] Sil Sullivan DO Work Phone: [employer] [facility] 02-05-2023 09:20-0500 Body height 160.02 cm Jan Garg Other [employer] Other 02-05-2023 09:20-0500 Body mass index (BMI) [Ratio] 36.66 kg/m2 Jan Scovanner Other [employer] Other 02-05-2023 09:20-0500 Body weight 93.9 kg Jan Scovanner Other [employer] Other 01-15-2023 09:45-0500 Body height 160.02 cm Gayathri Scally Other [employer] Other 01-15-2023 09:45-0500 Body mass index (BMI) [Ratio] 36.68 kg/m2 Gayathri Scally Other [employer] Other 01-15-2023 09:45-0500 Body weight 93.94 kg Gayathri Scally Other [employer] Other 01-15-2023 09:45-0500 Diastolic blood pressure 83 mm[Hg] Gayathri Scally Other [employer] Other 01-15-2023 09:45-0500 Respiratory rate 18 /min Gayathri Scally Other [employer] Other 01-15-2023 09:45-0500 SaO2% (BldA) [Mass fraction] 99 % Gayathri Scally Other [employer] Other 01-15-2023 09:45-0500 Systolic blood pressure 119 mm[Hg] Gayathri Scally Other [employer] Other 01-07-2023 10:00-0500 Body height 160.02 cm Jan Scovanjillian Other [employer] Other 01-07-2023 10:00-0500 Body mass index (BMI) [Ratio] 36.13 kg/m2 Jan Scovanner Other [employer] Other 01-07-2023 10:00-0500 Body weight 92.53 kg Jan Scovanner Other [employer] Other 01-07-2023 10:00-0500 Diastolic blood pressure 74 mm[Hg] Jan Scovanner Other [employer] Other 01-07-2023 10:00-0500 Systolic blood pressure 118 mm[Hg] Jan Scovanner Other [employer] Other 08-28-2022 09:00-0400 Body height 160.02 cm Tamar Fitt Other [employer] Other 08-28-2022 09:00-0400 Body mass index (BMI) [Ratio] 35.8 kg/m2 Tamar Fitt Other [employer] Other 08-28-2022 09:00-0400 Body weight 91.67 kg Tamar Fitt Other [employer] Other 07-29-2022 10:15-0400 Body height 160.02 cm Gayathri Scally Other [employer] Other 07-29-2022 10:15-0400 Body mass index (BMI) [Ratio] 35.18 kg/m2 Gayathri Scally Other [employer] Other 07-29-2022 10:15-0400 Body weight 90.08 kg Gayathri Scally Other [employer] Other 07-29-2022 10:15-0400 Diastolic blood pressure 84 mm[Hg] Gayathri Scally Other [employer] Other 07-29-2022 10:15-0400 Respiratory rate 18 /min Gayathri Scally Other [employer] Other 07-29-2022 10:15-0400 SaO2% (BldA) [Mass fraction] 99 % Gayathri Scally Other [employer] Other 07-29-2022 10:15-0400 Systolic blood pressure 127 mm[Hg] Gayathri Scally Other [employer] Other 05-20-2022 11:15-0400 Body height 160.02 cm Gayathri Scally Other [employer] Other 05-20-2022 11:15-0400 Body mass index (BMI) [Ratio] 34.52 kg/m2 Gayathri Scally Other [employer] Other 05-20-2022 11:15-0400 Body weight 88.41 kg Gayathri Scally Other [employer] Other 05-20-2022 11:15-0400 Diastolic blood pressure 82 mm[Hg] Gayathri Scally Other [employer] Other 05-20-2022 11:15-0400 Respiratory rate 18 /min Gayathri Scally Other [employer] Other 05-20-2022 11:15-0400 SaO2% (BldA) [Mass fraction] 97 % Gayathri Scally Other [employer] Other 05-20-2022 11:15-0400 Systolic blood pressure 121 mm[Hg] Gayathri Scally Other [employer] Other 04-08-2022 11:15-0500 Body height 160.02 cm Gayathri Scally Other [employer] Other 04-08-2022 11:15-0500 Body mass index (BMI) [Ratio] 34.49 kg/m2 Gayathri Scally Other [employer] Other 04-08-2022 11:15-0500 Body weight 88.32 kg Gayathri Scally Other [employer] Other 04-08-2022 11:15-0500 Diastolic blood pressure 77 mm[Hg] Gayathri Scally Other [employer] Other 04-08-2022 11:15-0500 Respiratory rate 18 /min Gayathri Scally Other [employer] Other 04-08-2022 11:15-0500 SaO2% (BldA) [Mass fraction] 98 % Gayathri Scally Other [employer] Other 04-08-2022 11:15-0500 Systolic blood pressure 110 mm[Hg] Gayathri Scally Other [employer] Other 04-08-2022 10:15-0500 Body height 160.02 cm Tamar Sosa Other [employer] Other 04-08-2022 10:15-0500 Body mass index (BMI) [Ratio] 34.49 kg/m2 Tamar Fitt Other [employer] Other 04-08-2022 10:15-0500 Body weight 88.32 kg Tamar Fitt Other [employer] Other 02-26-2022 10:00-0500 Body height 160.02 cm Tamar Fitt Other [employer] Other 02-25-2022 11:45-0500 Body height 160.02 cm Gayathri Scally Other [employer] Other 02-25-2022 11:45-0500 Body mass index (BMI) [Ratio] 36.63 kg/m2 Gayathri Scally Other [employer] Other 02-25-2022 11:45-0500 Body weight 93.8 kg Gayathri Scally Other [employer] Other 02-25-2022 11:45-0500 Diastolic blood pressure 78 mm[Hg] Gayathri Scally Other [employer] Other 02-25-2022 11:45-0500 Respiratory rate 18 /min Gayathri Scally Other [employer] Other 02-25-2022 11:45-0500 SaO2% (BldA) [Mass fraction] 97 % Gayathri Scally Other [employer] Other 02-25-2022 11:45-0500 Systolic blood pressure 109 mm[Hg] Gayathri Scally Other [employer] Other 01-14-2022 11:45-0500 Body height 160.02 cm Gayathri Scally Other [employer] Other 01-14-2022 11:45-0500 Body mass index (BMI) [Ratio] 39.37 kg/m2 Gayathri Scally Other [employer] Other 01-14-2022 11:45-0500 Body weight 100.84 kg Gayathri Scally Other [employer] Other 01-14-2022 11:45-0500 Diastolic blood pressure 88 mm[Hg] Gayathri Scally Other [employer] Other 01-14-2022 11:45-0500 Respiratory rate 18 /min Gayathri Scally Other [employer] Other 01-14-2022 11:45-0500 SaO2% (BldA) [Mass fraction] 97 % Gayathri Scally Other [employer] Other 01-14-2022 11:45-0500 Systolic blood pressure 124 mm[Hg] Gayathri Scally Other [employer] Other 12-04-2021 12:00-0400 Body height 160.02 cm Gayathri Scally Other [employer] Other 12-04-2021 12:00-0400 Body mass index (BMI) [Ratio] 39.73 kg/m2 Gayathri Scally Other [employer] Other 12-04-2021 12:00-0400 Body weight 101.74 kg Gayathri Scally Other [employer] Other 12-04-2021 12:00-0400 Diastolic blood pressure 74 mm[Hg] Gayathri Scally Other [employer] Other 12-04-2021 12:00-0400 Respiratory rate 18 /min Gayathri Scally Other [employer] Other 12-04-2021 12:00-0400 SaO2% (BldA) [Mass fraction] 95 % Gayathri Scally Other [employer] Other 12-04-2021 12:00-0400 Systolic blood pressure 110 mm[Hg] Gayathri Scally Other [employer] Other 10-29-2021 11:30-0400 Body height 160.02 cm Yo Blank Other [employer] Other 10-29-2021 11:30-0400 Body mass index (BMI) [Ratio] 38.61 kg/m2 Yo Blank Other [employer] Other 10-29-2021 11:30-0400 Body weight 98.88 kg Yo Blank Other [employer] Other 10-29-2021 11:30-0400 Diastolic blood pressure 74 mm[Hg] Yo Blank Other [employer] Other 10-29-2021 11:30-0400 Systolic blood pressure 111 mm[Hg] Yo Blank Other [facility] [employer] Other 10-22-2021 13:26-0400 Body temperature 97.2 [degF] Shawna Rumschlag DO Work Phone: [employer] 10-22-2021 13:26-0400 Diastolic blood pressure 71 mm[Hg] Shawna Rumschlag DO Work Phone: [facility] [employer] 10-22-2021 13:26-0400 Heart rate 85 /min Shawna Rumschlag DO Work Phone: [employer] [place] 10-22-2021 13:26-0400 Respiratory rate 16 /min Shawna Rumschlag DO Work Phone: [facility] [employer] 10-22-2021 13:26-0400 SaO2% (BldA) [Mass fraction] 94 % Shawna Rumschlag DO Work Phone: [employer] [place] 10-22-2021 13:26-0400 Systolic blood pressure 131 mm[Hg] Shawna Rumschlag DO Work Phone: [employer] [place] 10-11-2021 23:48-0400 Body height 160 cm Daniel Adkins MD Work Phone: [employer] [place] 10-11-2021 23:48-0400 Body mass index (BMI) [Ratio] 36.67 kg/m2 Daniel Adkins MD Work Phone: [employer] [place] 10-11-2021 23:48-0400 Body temperature 98.6 [degF] Daniel Adkins MD Work Phone: [employer] [place] 10-11-2021 23:48-0400 Body weight 93.89 kg Daniel Adkins MD Work Phone: [employer] [place] 10-11-2021 23:48-0400 Diastolic blood pressure 88 mm[Hg] Daniel Adkins MD Work Phone: [employer] [place] 10-11-2021 23:48-0400 Heart rate 97 /min Daniel Adkins MD Work Phone: [facility] [employer] 10-11-2021 23:48-0400 Respiratory rate 16 /min Daniel Adkins MD Work Phone: [facility] [employer] 10-11-2021 23:48-0400 SaO2% (BldA) [Mass fraction] 96 % Daniel Adkins MD Work Phone: [facility] [employer] 10-11-2021 23:48-0400 Systolic blood pressure 134 mm[Hg] Daniel Adkins MD Work Phone: [facility] [employer] Encounters Encounter Date Encounter Type Care Provider Facility Start: 05-10-2024 End: 05-10-2024 ambulatory LAILA LIEBERMAN Not Available Start: 05-09-2024 End: 05-09-2024 ambulatory Ugo Bourgeois MD Facility:[facility] Start: 04-28-2024 End: 04-28-2024 Office outpatient visit 25 minutes Mendez Cardoso DO Work Phone: [facility] Comment on above: Obstructive sleep ap austin (Primary Dx); Intolerance of continuous positive airway pressure (CPAP) ventilation; Body mass index 34.0-34.9, adult Start: 04-28-2024 End: 04-28-2024 ambulatory MENDEZ CARDOSO Not Available Start: 04-25-2024 End: 04-25-2024 Bamboo flowsheet Brittany Neville PRIMING MACHINE OPERATOR Work Phone: [facility] Start: 04-25-2024 End: 04-25-2024 Bamboo flowsheet Brittany Neville PRIMING MACHINE OPERATOR Work Phone: [facility] Start: 04-18-2024 End: 04-18-2024 Bamboo flowsheet Roel Shirlene DO Work Phone: [facility] Start: 04-18-2024 End: 04-18-2024 Bamboo flowsheet Roel Shirlene DO Work Phone: [facility] Start: 04-18-2024 End: 04-18-2024 Clinisync Result Encounter Roel Shirlene DO Work Phone: [facility] External Department Unsolicited Start: 04-18-2024 End: 04-18-2024 ambulatory ROEL ARTO Not Available Start: 04-18-2024 End: 04-18-2024 Office outpatient visit 15 minutes Roel Shirlene DO Work Phone: [facility] Comment on above: Hormone imbalance; Hormone disorder; Toenail fungus Start: 04-13-2024 End: 04-14-2024 Telephone encounter Cleo Zambrano MD Work Phone: [facility] Comment on above: Prior Authorization Start: 04-07-2024 End: 04-07-2024 [email or web address] Cleo Zambrano MD Work Phone: [facility] Start: 04-07-2024 End: 04-07-2024 Bamboo flowsheet Cleo Zambrano MD Work Phone: [facility] Start: 04-07-2024 End: 04-07-2024 ambulatory CLEO ZAMBRANO Not Available Start: 04-07-2024 End: 04-07-2024 Office outpatient visit 25 minutes Cleo Zambrano MD Work Phone: [facility] Comment on above: Type 2 diabetes mine itus without complication, unspecified whether senior care insulin use ([facility]) (Primary Dx); Vitamin D deficiency; Weight gain; Encounter for dietary consultation; Hyperlipemia, mixed (CMS/[facility]); Class 2 severe obesity due to excess calories with serious comorbidity and body mass index (BMI) of 39.0 to 39.9 in adult (CMS/HCC) Start: 03-09-2024 End: 03-09-2024 ambulatory Rory Driver CNC MILL OPERATOR-BC Work Phone: [facility] Work Phone: Start: 03-09-2024 End: 03-09-[address] Rory Driver [facility]- Work Phone: [facility] Start: 02-29-2024 End: 03-03-2024 Refill Paula Sanderson MD Work Phone: [facility] Comment on above: Chronic rhinitis Start: 02-16-2024 End: 02-17-2024 Telephone encounter Cleo Zambrano MD Work Phone: [facility] Comment on above: Medication Problem Start: 02-09-2024 End: 02-09-2024 Subsequent hospital visit by physician Jan Olmstead PT [facility] Physical Therapy Start: 02-09-[address] [facility] Start: 02-01-2024 End: 02-01-2024 ambulatory Ugo Bourgeois MD Facility:[facility] Start: 01-26-2024 End: 01-26-2024 ambulatory [facility] Start: 01-26-2024 End: 01-26-2024 Subsequent hospital visit by physician Tamar Silveira PT [facility] Physical Therapy Comment on above: Arrived Start: 01-21-2024 End: 01-21-2024 Patient encounter procedure Rory Driver [facility]- Work Phone: [facility] Work Phone: Start: 01-13-2024 End: 01-13-2024 Emergency department patient visit Lisette Junior DO Work Phone: [facility] ED Comment on above: Dizziness (Primary D x) Start: 01-11-2024 End: 01-11-2024 ambulatory [facility] Start: 12-29-2023 End: 12-29-2023 Subsequent hospital visit by physician Tamar Silveira PT [facility] Physical Therapy Start: 12-21-2023 End: 12-21-2023 ambulatory [facility] Start: 12-15-2023 End: 12-15-[facility] Start: 12-01-2023 End: 12-01-2023 ambulatory [facility] Start: 11-30-2023 End: 11-30-2023 Bamboo flowsheet Brittany Neville PRIMING MACHINE OPERATOR Work Phone: [facility] Start: 11-30-2023 End: 11-30-2023 Bamboo flowsheet Brittany Neville PRIMING MACHINE OPERATOR Work Phone: [facility] Start: 11-30-2023 End: 11-30-2023 Telephone encounter Brittany Neville PRIMING MACHINE OPERATOR Work Phone: [facility] Start: 11-30-2023 End: 11-30-2023 ambulatory BRITTANY NEVILLE Not Available Start: 11-30-2023 End: 11-30-2023 Office outpatient visit 25 minutes Brittany Neville PRIMING MACHINE OPERATOR Work Phone: [facility] Comment on above: JADON (obstructive sle ep apnea) (Primary Dx); Tension headache; Chronic bilateral low back pain, unspecified whether sciatica present; Paresthesias Start: 11-17-2023 End: 11-17-2023 ambulatory [facility] Start: 11-17-2023 End: 11-17-2023 Subsequent hospital visit by physician Tamar Silveira PT [facility] Physical Therapy Comment on above: Arrived Start: 11-16-2023 End: 11-16-2023 ambulatory [facility] Start: 10-20-2023 End: 10-20-2023 ambulatory [facility] Start: 10-20-2023 End: 10-20-2023 Subsequent hospital visit by physician Jan Olmstead PT [facility] Physical Therapy Comment on above: Arrived Start: 10-08-2023 End: 10-08-2023 ambulatory ADAM PALMER [facility] Start: 10-06-2023 End: 10-07-2023 Emergency department patient visit NAVEEN SANCHEZ [facility] Start: 10-05-2023 End: 10-05-2023 Emergency department patient visit NAVEEN SANCHEZ [facility] Start: 10-05-2023 End: 10-05-2023 Emergency department patient visit [facility] Start: 09-22-2023 End: 09-22-2023 Subsequent hospital visit by physician Jan Olmstead PT [facility] Physical Therapy Start: 09-15-2023 End: 09-15-2023 ambulatory [facility] Start: 09-07-2023 End: 09-07-2023 ambulatory SHAWNA RUMNAFISAG [facility] Start: 09-01-2023 End: 09-01-2023 ambulatory [facility] BOGDAN [facility] Start: 08-26-2023 End: 08-26-2023 ambulatory SHAWNA EDWARG [facility] Start: 08-26-2023 End: 08-26-2023 Subsequent hospital visit by physician Kofi Villegas PT [facility] Physical Therapy Comment on above: Arrived Start: 08-21-2023 End: 08-21-2023 ambulatory [facility] BOGDAN [facility] Start: 08-21-2023 End: 08-21-2023 Subsequent hospital visit by physician Jan Olmstead PT [facility] Physical Therapy Comment on above: Arrived Start: 08-13-2023 End: 08-13-2023 ambulatory LAILA LIEBERMAN Not Available Start: 08-11-2023 End: 08-11-2023 ambulatory [facility]OGDAN [facility] Start: 08-11-2023 End: 08-11-2023 Subsequent hospital visit by physician Jan Olmstead PT [facility] Physical Therapy Comment on above: Arrived Start: 08-04-2023 End: 08-04-2023 ambulatory [facility] RUMSCHLAG [facility] Start: 07-29-2023 End: 07-29-2023 ambulatory SHAWNA RUMSCHELIZABETHG [facility] Start: 07-14-2023 End: 07-14-2023 Subsequent hospital visit by physician Rebecca Skinner PT [facility] Physical Therapy Start: 07-07-2023 End: 07-07-2023 ambulatory [facility]AWNA RUMSCHLAG [facility] Start: 06-30-2023 End: 06-30-2023 ambulatory SHAWNA RUMNAFISAG [facility] Start: 06-17-2023 End: 06-17-2023 ambulatory SHAWNA RUMSCHELIZABETHG [facility] Start: 06-16-2023 End: 06-16-2023 ambulatory SHAWNA BOGDAN [facility] Start: 06-04-2023 End: 06-04-2023 ambulatory SHAWNA RUMNAFISAG [facility] Start: 06-03-2023 End: 06-03-2023 [facility] Start: 06-02-2023 End: 06-02-2023 ambulatory FORTINO ROBLEDO [facility] pital Start: 06-02-2023 ambulatory SHAWNA Jin [facility] Start: 05-25-2023 Patient encounter procedure Brittany Neville NP Work Phone: [facility] Start: 05-25-2023 End: 05-25-2023 ambulatory ROEL GARBER Not Available Start: 05-21-2023 End: 05-21-2023 Patient encounter procedure [facility] Physician [facility] G[facility] Work Phone: Start: 05-21-2023 End: 05-21-2023 Patient encounter procedure [facility] Work Phone: Start: 05-20-2023 End: 05-20-2023 ambulatory SHAWNA EDWARG [facility] Start: 05-19-2023 End: 05-19-2023 ambulatory SHAWNA EDWARG [facility] Start: 05-06-2023 End: 05-06-2023 ambulatory SHAWNA RUMNAFISAG [facility] Start: 05-06-2023 End: 05-06-2023 Subsequent hospital visit by physician Rojas Altamirano [facility] Comment on above: Arrived Start: 05-05-2023 End: 05-05-2023 ambulatory [facility] RUMSCHELIZABETHG [facility] Start: 04-28-2023 End: 04-28-2023 ambulatory GAURAV SELLERS [facility] Start: 04-21-2023 End: 04-21-2023 [facility] Start: 04-20-2023 End: 04-20-2023 Emergency department patient visit [facility] ED Comment on above: Closed head injury, initial encounter (Primary Dx); Fall due to slipping on ice or snow, initial encounter; Acute cervical myofascial strain, initial encounter Start: 04-16-[address] [facility] Facility :[facility] Start: 04-07-2023 End: 04-07-2023 ambulatory SHAWNA Jin [facility] Start: 03-27-2023 End: 03-27-2023 ambulatory ZAC Moore JACQUES [facility] Start: 03-24-2023 End: 03-24-[address] [facility] Start: 03-18-2023 Telephone encounter Jan Peterson [facility] Start: 03-18-2023 End: 03-18-2023 ambulatory NON STAFF [facility] [employer] Other Start: 03-18-2023 Non-patient / Non-visit MD Selvin Blank Work Phone: [facility] Work Phone: Start: 03-17-2023 End: 03-17-2023 ambulatory Jan Garg Other [employer] Other Start: 03-17-2023 Telephone encounter Jan Peterson [facility] Start: 03-16-2023 Encounter for genera l adult medical examination without abnormal findings REPLACED BY [facility] Start: 03-16-2023 End: 03-16-2023 [facility] Start: 03-10-2023 End: 03-10-2023 ambulatory SHAWNA Jin [facility] Start: 03-10-2023 End: 03-10-2023 Subsequent hospital visit by physician Tamar Silveira PT [facility] Comment on above: Arrived Start: 03-05-2023 (FCCWMNF/U) Weight Management f/u Gayathri Adams [facility] Start: 03-05-2023 End: 03-05-2023 ambulatory Gayathri Adams Other [employer] Other Start: 03-05-2023 Registered Recurring MD Monserrat Blank Work Phone: [facility] Work Phone: Start: 03-02-2023 End: 03-02-2023 Emergency department patient visit Sil Sullivan DO Work Phone: [facility] ED Comment on above: Constipation, unspec ified constipation type (Primary Dx) Start: 02-26-2023 End: 02-26-2023 ambulatory Jan Garg Other [employer] Other Start: 02-26-2023 Telephone encounter Jan Peterson [facility] Start: 02-18-2023 End: 02-18-2023 ambulatory Jan Garg Other [employer] Other Start: 02-18-2023 Telephone encounter Jan Peterson [facility] Start: 02-05-2023 End: 02-05-2023 ambulatory Jan Garg Other [employer] Other Start: 02-05-2023 Office outpatient vi sit 15 minutes Jan Garg [facility] Start: [facility]-15-2023 [facility] Weight Management f/u Gayathri Adams [facility] Start: 01-15-2023 End: 01-15-2023 ambulatory Gayathri Adams Other [employer] Other Start: 01-07-2023 End: 01-07-2023 ambulatory Jan Garg Other [employer] Other Start: 01-07-2023 Office outpatient vi sit 15 minutes Jan Garg [facility] Start: 09-25-2022 End: 01-16-2023 ambulatory GYRO MECHANIC YUE GRANADO Facility:[facility] Start: 09-25-2022 End: 01-15-2023 Recurring YUE GRANADO [facility] Start: 09-17-2022 End: 09-17-2022 ambulatory Gayathri Adams Other [employer] Other Start: 09-17-2022 Telephone encounter Gayathri Brooklynludy [facility] Start: 08-28-2022 ([facility] RD FU) [facility] F/ U Registerd Reference Assistant Tamar Sosa [facility] Start: 08-28-2022 End: 08-28-2022 ambulatory Tamar Sosa Other [employer] Other Start: 07-29-2022 [facility] Weight Management f/u Gayathri Angie [facility] Start: 07-29-2022 End: 07-29-2022 ambulatory Gayathrimarino Barahonaly Other [employer] Other Start: 05-20-2022 [facility] Weight Management f/u Gayathri Angie [facility] Start: 05-20-2022 End: 05-20-2022 ambulatory Gayathri Adams Other [employer] Other Start: 05-19-2022 End: 05-19-[address] ROEL GARBER . Facility:[facility] Start: 05-07-2022 End: 05-08-[address] DOCTOR ARREOLA Facility:[facility] Start: 04-09-2022 End: 04-09-2022 ambulatory Gayathri Adams Other [employer] Other Start: 04-09-2022 Telephone encounter Gayathri Adams [facility] Start: 04-08-2022 ([facility] WMNI) WMN Init ial Provider Tamar Sosa [facility] Start: 04-08-2022 [facility] Weight Management f/u Gayathri Adams [facility] Start: 04-08-2022 End: 04-08-2022 ambulatory Tamar Fitt Other [employer] Other Start: 02-26-2022 End: 02-26-2022 ambulatory Tamar Fitt Other [employer] Other Start: 02-26-2022 IBT FOR OBESITY GROU P 2-10 30M Tamarsruthi Sosa [facility] Start: 02-25-2022 [facility] Weight Management f/u Gayathri Adams [facility] Start: 02-25-2022 End: 02-25-2022 ambulatory Gayathri Adams Other [employer] Other Start: 02-17-2022 End: 02-18-2022 ambulatory RORY VILLA Facility:[facility] Start: 01-29-2022 End: 01-30-2022 ambulatory JOY Reis [facility] Facility:[facility] Start: 01-14-2022 [facility] Weight Management f/u Gayathri Adams [facility] Start: 01-14-2022 End: 01-14-2022 ambulatory Gayathri Adams Other [employer] Other Start: 12-05-2021 End: 12-05-2021 ambulatory Gayathri Adams Other [employer] Other Start: 12-05-2021 Telephone encounter Gayathri [facility] Start: 12-04-2021 End: 12-04-2021 ambulatory Gayathri Adams Other [employer] Other Start: 12-04-2021 Nutrition therapy [facility] Start: 10-29-2021 End: 10-29-2021 ambulatory Yo Blank Other [employer] Other Start: 10-29-2021 Patient encounter procedure Yo Ruizkikeyuliya [facility] Start: 10-22-2021 End: 10-22-2021 Emergency department patient visit Shawna Bogdan DO Work Phone: [facility] ED Comment on above: Acute diffuse otitis externa of left ear (Primary Dx) Start: 10-11-2021 End: 10-12-2021 Emergency department patient visit Daniel Adkins MD Work Phone: [facility] ED Comment on above: Pilonidal cyst (Prim romero Dx) Start: 11-21-2016 End: 11-26-2016 Ambulatory [facility] Facility:[facility] Procedures Date Procedure Procedure Detail Performing Clinician Start: 04-18-2024 MLR HEMOGLOBIN A1C Core y Shirlene DO Work Phone: Start: 04-07-2024 Gluc bld gluc mntr d ev cleared fda spec home use Cleo Zambrano MD Work Phone: Start: 01-13-2024 Urinalysis microscopic only Lisette Perez Junior DO Work Phone: Start: 01-13-2024 Urnls dip stick/tabl et rgnt auto w/o microscopy Lisette Perez Junior DO Work Phone: Start: 01-13-2024 Ecg routine ecg w/le ast 12 lds w/i&r Lisette Perez Junior DO Work Phone: Start: 01-13-2024 Comprehensive metabo lic panel Lisette Perez Junior DO Work Phone: Start: 05-25-2023 Microscopic observat ion [Identifier] in Cervix by Cyto stain Brittany Neville PRIMING MACHINE OPERATOR Work Phone: Start: 04-20-2023 Ct cervical spine w/ o contrast material Precious Urbina MANAGER MATERIALS MANAGEMENT - GYRO MECHANIC Work Phone: Start: 04-20-2023 Ct head/brain w/o co ntrast material Precious Urbina MANAGER MATERIALS MANAGEMENT - GYRO MECHANIC Work Phone: Start: 03-16-2023 Mammography Brittany Jg yoo PRIMING MACHINE OPERATOR Work Phone: Start: 08-30-2016 Cholecystectomy [facility] Start: 01-03-2013 nasal surgery YUE ALVARENGA RS Tonsillectomy YUE GRANADO Plan of Treatment Date Care Activity Detail Author Start: 05-20-2027 Screening for malignant neoplasm of cervix [facility] Start: 05-24-2026 Screening for malignant neoplasm of cervix Pap Smear [facility] Start: 03-16-2025 Screening for malignant neoplasm of breast Breast cancer screen [facility] Start: 11-10-2024 End: 11-10-2024 Patient encounter procedure 11/10/2024 11:30 AM EDT Office Visit [facility] [address] [place] [phone] Karen Cotter, MANAGER MATERIALS MANAGEMENT - GYRO MECHANIC [address] [place] [address] [address] [place] [address] 1 year [facility] Comment on above: 1 year [facility] Start: 08-04-2024 End: 08-04-2024 Patient encounter procedure 08/04/2024 10:30 AM EDT Office Visit [facility]CR[facility] [address] [place] [address] Cleo Zambrano MD [address] [place] [address] [facility] Start: 05-26-2024 End: 05-26-2024 Patient encounter procedure 05/26/2024 11:00 AM EDT Office Visit [facility] [address] [place] [address] Roel Garber DO [address] [facility] [place] [address] [place] [address] [facility] Start: 05-04-2024 End: 05-04-2024 Patient encounter procedure 05/04/2024 8:20 AM EST Office Visit [facility] [address] [place] [phone] Brittany Neville, PRIMING MACHINE OPERATOR [address] [place], [place] [facility] Start: 04-28-2024 End: 04-28-2024 Patient encounter procedure 04/28/2024 10:30 AM EST Office Visit [facility] [place] [address] [place] [address] Mendez Cardoso DO [address] [place] [address] [facility] Start: 04-25-2024 End: 04-25-2024 Patient encounter procedure 04/25/2024 9:00 AM EST Office Visit [facility] [place] [address] [address] [place] [phone] Brittany Neville, JO ANN [address] [place], [place] [facility] Start: 04-18-2024 End: 04-18-2025 C-peptide C-peptide Lab Routine Hormone imbalance Hormone disorder Expected: 04/18/2024 (Approximate), Expires: 04/18/2025 [facility] Comment on above: Expected: 04/18/2024 (Approximate), Expi [...] 04-18-2025 Thyrotropin [Units/volume] in Serum or Plasma [facility] Comment on above: Ordered: 04/18/2024 Expected: 04/18/2024 (Approximate), Expires: 04/18/2025 Start: 04-18-2024 End: 04-18-2024 Patient encounter procedure 04/18/2024 10:50 AM EST Office Visit [facility] [address] [place] [phone] Roel Garber, DO [address] [facility] [place] [address] [facility] Start: 04-07-2024 End: 04-07-2025 25-hydroxyvitamin D3 [Mass/volume] in Serum or Plasma Vitamin D 25 hydroxy Total Lab Routine 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, unspecified whether intermodal dispatcher insulin use (CMS/HCC) Expected: 04/07/2024 (Approximate), Expires: 04/07/2025 [facility] Work Phone: Comment on above: Expected: 04/07/2024 (Approximate), Expi res: 04/07/2025 Start: 04-07-2024 End: 04-07-2025 Lipid 1996 panel - Serum or Plasma Lipid panel Lab Routine 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, unspecified whether senior care insulin use (CMS/HCC) Expected: 04/07/2024 (Approximate), Expires: 04/07/2025 [facility] Comment on above: Expected: 04/07/2024 (Approximate), Expi res: 04/07/2025 Start: 04-07-2024 End: 04-07-2025 Microalbumin/Creatinine panel in random Urine Microalbumin / creatinine urine ratio Lab Routine 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, unspecified whether intermodal dispatcher insulin use (CMS/HCC) Expected: 04/07/2024 (Approximate), Expires: 04/07/2025 [facility] Comment on above: Expected: 04/07/2024 (Approximate), Expi res: 04/07/2025 Start: 04-07-2024 End: 04-07-2025 Renal function panel Renal function panel Lab Routine 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, unspecified whether intermodal dispatcher insulin use (CMS/HCC) Expected: 04/07/2024 (Approximate), Expires: 04/07/2025 [facility] Comment on above: Expected: 04/07/2024 (Approximate), Expi res: 04/07/2025 Start: 03-24-2024 End: 03-24-2024 Patient encounter procedure 03/24/2024 3:00 PM EST Office Visit [facility] [address] [place] [phone] Brittany Neville NP [address] [place], [place] [facility] [address] Start: 03-17-2024 End: 03-17-2024 Patient encounter procedure 03/17/2024 9:20 AM EST Office Visit [facility] ENDOCR[facility] [address] [place] [address] Cleo Zambrano MD [address] [place] [address] [facility] Start: 03-16-2024 Screening for malignant neoplasm of breast Mammogram [facility] Start: 03-11-2024 End: 03-11-2024 Patient encounter procedure 03/11/2024 10:00 AM EST Office Visit [facility] [address] [place] [address] Mendez Cardoso, DO [address] [place] [address] [facility] Start: 03-09-2024 Group A Streptococcus Culture Group A Streptococcus Culture [facility] Start: 02-19-2024 End: 02-19-2024 Patient encounter procedure 02/19/2024 2:00 PM EST Office Visit [facility] [address] [place] [address] Mendez Cardoso, DO [address] [place] [address] [facility] Start: 02-16-2024 End: 02-16-2024 Patient encounter procedure 02/16/2024 3:40 PM EST Office Visit [facility] [address] [place] [address] Brittany Neville, JO ANN [address] [place], [place] [facility] [address] Start: 02-09-2024 End: 02-09-2024 Patient encounter procedure 02/09/2024 11:15 AM EST Appointment [facility] Physical Therapy [address] [place], [place] [phone] Tamar Silveira, PT dry needling [facility] Physical Therapy Comment on above: dry needling Start: 01-26-2024 End: 01-26-2024 Patient encounter procedure 01/26/2024 8:00 AM EST Appointment [facility] Physical Therapy [address] [place], [place] [phone] Tamar Silveira, PT dry needling [facility] Physical Therapy Comment on above: dry needling Start: 01-13-2024 End: 01-13-2024 Patient encounter procedure 01/13/2024 8:15 AM EST Office Visit [facility] [place] [address] Georges [place], PA-C [address] [place] [address] [address] [phone] incontinence [facility] Comment on above: incontinence Start: 12-29-2023 End: 12-29-2023 Patient encounter procedure 12/29/2023 9:00 AM EDT Appointment [facility] Physical Therapy [address] [place] [address] Tamar Silveira, PT NEEDLING [facility] Physical Therapy Comment on above: NEEDLING Start: 12-15-2023 End: 12-15-2023 Patient encounter procedure 12/15/2023 9:00 AM EDT Appointment [facility] Physical Therapy [address] [place] [address] Tamar Silveira, PT NEEDLING [facility] Physical Therapy Comment on above: NEEDLING Start: 12-01-2023 End: 12-01-2023 Patient encounter procedure 12/01/2023 9:45 AM EDT Appointment [facility] Physical Therapy [address] [place] [phone] Tamar Silveira, PT NEEDLING [facility] Physical Therapy Comment on above: NEEDLING Start: 11-01-2023 Influenza vaccination Influenza Vaccine (#1) [facility] Start: 10-01-2023 Influenza vaccination Flu vaccine (#1) [facility] Start: 09-01-2023 End: 09-01-2023 Patient encounter procedure 09/01/2023 10:30 AM EDT Appointment [facility] Physical Therapy [address] [place] [address] Osito Rowan [facility] Physical Therapy Start: 08-26-2023 End: 08-26-2023 Patient encounter procedure 08/26/2023 2:30 PM EDT Appointment [facility] Physical Therapy [address] [place], [place] [phone] Kofi Villegas, PT [facility] Physical Therapy Start: 08-18-2023 End: 08-18-2023 Patient encounter procedure 08/18/2023 9:45 AM EDT Appointment [facility] Physical Therapy [address] [place] [address] Osito Rowan [facility] Physical Therapy Start: 08-11-2023 End: 08-11-2023 Patient encounter procedure 08/11/2023 1:15 PM EDT Appointment [facility] Physical Therapy [address] [place] [phone] Jan Olmstead, PT DRY NEEDLING [facility] Physical Therapy Comment on above: DRY NEEDLING Start: 08-04-2023 End: 08-04-2023 Patient encounter procedure 08/04/2023 4:15 PM EDT Appointment [facility] Physical Therapy [address] [place] [phone] Osito Rowan [facility] Physical Therapy Start: 06-03-2023 End: 06-03-2023 Patient encounter procedure 06/03/2023 3:30 PM EDT Appointment [facility] Physical Therapy [address] [place] [address] Osito Rowan [facility] Physical Therapy Start: 06-02-2023 End: 06-02-2023 Patient encounter procedure 06/02/2023 3:00 PM EDT Appointment [facility] Physical Therapy [address] [place] [address] Rebecca Skinner, PT DRY NEEDLING- dont move coordinates with son's appt [facility] Physical Therapy Comment on above: DRY NEEDLING- dont move coordinates with son's appt Start: 05-23-2023 Hepatitis B vaccine (3 of 3 - Hep B Twinrix 3-dose series) Hepatitis B vaccine (3 of 3 - Hep B Twinrix 3-dose series) [facility] Start: 05-20-2023 End: 05-20-2023 Patient encounter procedure 05/20/2023 3:15 PM EDT Appointment [facility] Physical Therapy [address] [place], [place] [phone] Rojas Altamirano PTA [facility] Physical Therapy Start: 05-19-2023 End: 05-19-2023 Patient encounter procedure 05/19/2023 12:45 PM EDT Appointment [facility] Physical Therapy [address] [place] [address] Rebecca Skinner, PT DRY NEEDLING- dont move coordinates with son's apptDRY NEEDLING [facility] Physical Therapy Comment on above: DRY NEEDLING- dont move coordinates with son's apptDRY NEEDLING Start: 05-05-2023 End: 05-05-2023 Patient encounter procedure [facility] Physical Therapy Comment on above: DRY NEEDLING DRY NEEDLING- dont m ove coordinates with son's appt Start: 04-21-2023 End: 04-21-2023 Patient encounter procedure [facility] Physical Therapy Comment on above: DRY NEEDLING DRY NEEDLING- dont m ove coordinates with son's appt Start: 04-07-2023 End: 04-07-2023 Patient encounter procedure 04/07/2023 2:15 PM EST Appointment [facility] Physical Therapy [address] [place] [phone] Rebecca Skinner, PT DRY NEEDLING [facility] Physical Therapy Comment on above: DRY NEEDLING Start: 03-24-2023 End: 03-24-2023 Patient encounter procedure 03/24/2023 2:15 PM EST Appointment [facility] Physical Therapy [address] [place] [phone] Rebecca Skinner, PT DRY NEEDLING [facility] Physical Therapy Comment on above: DRY NEEDLING Start: 03-19-2023 [facility] Start: 03-10-2023 End: 03-10-2023 Patient encounter procedure 03/10/2023 2:30 PM EST Appointment [facility] Physical Therapy [address] [place] [phone] Rebecca Skinner, PT [facility] Physical Therapy Start: 09-30-2022 Influenza vaccination Flu vaccine (#1) [facility] Start: 10-31-2021 Influenza vaccination Flu vaccine (#1) [facility] Start: 09-03-2021 DTaP/Tdap/Td vaccine (1 - Tdap) DTaP/Tdap/Td vaccine (1 - Tdap) [facility] Start: 2020 Lipid panel Lipids [facility] Start: 09-25-2015 Diabetes screen Diabetes screen [facility] Start: 2010 Screening for malignant neoplasm of cervix [facility] Start: 2001 Screening for malignant neoplasm of cervix Pap smear [facility] Start: 09-25-1999 DTaP/Tdap/Td vaccine (1 - Tdap) DTaP/Tdap/Td vaccine (1 - Tdap) [facility] Start: 1998 Hepatitis C screening Hepatitis C screen [facility] Start: 09-25-1995 HIV screening HIV screen [facility] Start: 1993 Varicella vaccine (1 of 2 - 13+ 2-dose series) Varicella vaccine (1 of 2 - 13+ 2-dose series) [facility] Start: 1992 Depression Screen Depression Screen [facility] Start: 1990 Lipid panel Lipids [facility] Start: 1981 Varicella vaccine (1 of 2 - 2-dose childhood series) Varicella vaccine (1 of 2 - 2-dose childhood series) [facility] Start: 03-27-1981 COVID-19 Vaccine (#1) COVID-19 Vaccine (#1) [facility] Start: 1980 Hepatitis B vaccine (1 of 3 - 3-dose series) Hepatitis B vaccine (1 of 3 - 3-dose series) [facility] DHEA-sulfate DHEA-sulfate Lab Routine Hormone imbalance Hormone disorder Ordered: 04/18/2024 [facility] Comment on above: Ordered: 04/18/2024 EKG 12 Lead EKG 12 Lead ECG Routine 01/13/2024 2:59 PM [facility] Estradiol Estradiol Lab Ro utine Hormone imbalance Hormone disorder Ordered: 04/18/2024 [facility] Work Phone: Comment on above: Ordered: 04/18/2024 Estrone Estrone Lab Rout ine Hormone imbalance Hormone disorder Ordered: 04/18/2024 [facility] Comment on above: Ordered: 04/18/2024 Ferritin [Mass/volum e] in Serum or Plasma Ferritin Lab Routine Hormone imbalance Hormone disorder Ordered: 04/18/2024 [facility] Comment on above: Ordered: 04/18/2024 Hemoglobin A1c/Hemoglobin.total in Blood Hemoglobin A1c Lab Routine Hormone imbalance Hormone disorder Ordered: 04/18/2024 [facility] Comment on above: Ordered: 04/18/2024 Progesterone Progesterone Lab Routine Hormone imbalance Hormone disorder Ordered: 04/18/2024 [facility] Comment on above: Ordered: 04/18/2024 Sex hormone binding globulin Sex hormone binding globulin Lab Routine Hormone imbalance Hormone disorder Ordered: 04/18/2024 [facility] Comment on above: Ordered: 04/18/2024 Streptococcus pyogen es [Presence] in Unspecified specimen by Organism specific culture [facility] T3, reverse T3, reverse Lab Routine Hormone imbalance Hormone disorder Ordered: 04/18/2024 [facility] Comment on above: Ordered: 04/18/2024 TESTOSTERONE, FREE TESTOSTERONE, FREE Lab Routine Hormone imbalance Hormone disorder Ordered: 04/18/2024 [facility] Comment on above: Ordered: 04/18/2024 Testosterone, free, total Testos terone, free, total Lab Routine Hormone imbalance Hormone disorder Ordered: 04/18/2024 [facility] Comment on above: Ordered: 04/18/2024 Thyroid peroxidase antibody Thyroid peroxidase antibody Lab Routine Hormone imbalance Hormone disorder Ordered: 04/18/2024 [facility] Comment on above: Ordered: 04/18/2024 Thyroxine (T4) free [Mass/volume] in Serum or Plasma T4, free Lab Routine Hormone imbalance Hormone disorder Ordered: 04/18/2024 [facility] Comment on above: Ordered: 04/18/2024 Triiodothyronine (T3 ) Free [Mass/volume] in Serum or Plasma T3, free Lab Routine Hormone imbalance Hormone disorder Ordered: 04/18/2024 [facility] Comment on above: Ordered: 04/18/2024 Vitamin D 1,25 dihydroxy Vitamin D 1,25 dihydroxy Lab Routine Hormone imbalance Hormone disorder Ordered: 04/18/2024 [facility] Comment on above: Ordered: 04/18/2024 Immunizations Immunization Date Immunization Notes Care Provider [facility] 12-07-2023 influenza, seasonal, injectable, preservative free Paula Sanderson MD Work Phone: [facility] 05-25-2023 hepatitis A and hepa titis B vaccine Paula Sanderson MD Work Phone: [facility] 12-22-2022 hepatitis A and hepa titis B vaccine Paula Sanderson MD Work Phone: [facility] 12-22-2022 Seasonal, quadrivale nt, recombinant, injectable influenza vaccine, preservative free Paula Sanderson MD Work Phone: [facility] 12-22-2022 influenza virus vacc ine, unspecified formulation Brittany Neville NP Work Phone: [facility] 06-23-2022 hepatitis A and hepa titis B vaccine Paula Sanderson MD Work Phone: [facility] 02-07-2022 Pneumococcal Conjuga te PCV 20 Paula Sanderson MD Work Phone: [facility] 12-23-2021 influenza, injectabl e, quadrivalent, preservative free Paula Sanderson MD Work Phone: [facility] 09-02-2021 TD(adult) unspecifie d formulation Paula Sanderson MD Work Phone: [facility] 12-24-2020 influenza, injectabl e, quadrivalent, preservative free Paula Sanderson MD Work Phone: [facility] 12-19-2019 influenza, injectabl e, quadrivalent, preservative free Paula Sanderson MD Work Phone: [facility] 12-19-2018 influenza, injectabl e, quadrivalent, preservative free Paula Sanderson MD Work Phone: [facility] 12-02-2017 influenza, injectabl e, quadrivalent, preservative free Paula Sanderson MD Work Phone: [facility] 12-02-2017 pneumococcal conjuga te vaccine, 13 valent Paula Sanderson MD Work Phone: [facility] 10-10-2016 influenza, seasonal, injectable, preservative free Paula Sanderson MD Work Phone: [facility] 12-19-2013 influenza virus vacc ine, live, attenuated, for intranasal use Paula Sanderson MD Work Phone: [facility] 12-03-2012 influenza virus vacc ine, whole virus Paula Sanderson MD Work Phone: [facility] 12-29-2011 influenza virus vacc ine, whole virus Paula Sanderson MD Work Phone: [facility] 12-23-2010 influenza virus vacc ine, whole virus Paula Sanderson MD Work Phone: [facility] 12-18-2008 influenza virus vacc ine, whole virus Paula Sanderson MD Work Phone: [facility] Payers Date Payer Category Payer Self-pay [id number] 2022 Unknown 2013 Medicaid [employer] [place] [employer] [id number] 2013-Present [address] [place] [address] [id number] 2013 Medicaid (Managed Care) [employer] [id number] 1980 Unknown [id number] 2.16840.1.263892.3.579.2. 593 1980 Unknown [id number] 2.840.1.362377.3.579.2. 59 1980 Unknown [id number] 2.16840.1.132705.3.579.2. 593 1980 Unknown [id number] 2.16840.1.146861.3.579.2. 59 1980 Unknown [id number] 2.16840.1.281810.3.579.2. 727 1980 Unknown [id number] 2.16840.1.298296.3.579.2. 128 1980 Unknown [id number] 2.16840.1.620223.3.579.2. 128 1980 Unknown [id number] 2.16840.1.652004.3.579.2. 1285 1980 Unknown [id number] 2.16840.1.061091.3.579.2. 1285 1980 Unknown [id number] 2.16840.1.065792.3.579.2. 1285 1980 Unknown [id number] 2.16840.1.750015.3.579.2. 1285 1980 Unknown [id number] 2.840.1.589516.3.579.2. 1285 1980 Unknown [id number] 2.16840.1.088121.3.579.2. 1285 1980 Unknown [id number] 2.840.1.014360.3.579.2. 1285 1980 Unknown [id number] 2.840.1.189653.3.579.2. 1285 1980 Unknown [id number] 2.840.1.968996.3.579.2. 1285 1980 Unknown [id number] 2.840.1.231980.3.579.2. 1980 Unknown [id number] 2.840.1.916795.3.579.2. 1980 Unknown [id number] 2.840.1.702487.3.579.2. 1980 Unknown [id number] 2.0.1.796410.3.579.2. 1980 Unknown [id number] 2840.1.775441.3.579.2. 1980 Unknown [id number] 2840.1.380070.3.579.2. 1980 Unknown [id number] 2.840.1.651055.3.579.2. 1980 Unknown [id number] 2.840.1.669231.3.579.2. 1980 Unknown [id number] 2.840.1.007883.3.579.2. 1980 Unknown [id number] 2.840.1.770993.3.579.2. 1980 Unknown [id number] 2.16.840.1.759222.3.579.2. 1980 Unknown [id number] 2.16.840.1.545871.3.579.2. 1980 Unknown [id number] 2.16.840.1.738939.3.579.2. 1980 Unknown [id number] 2.16840.1.943094.3.579.2. 1980 Unknown [id number] 2.16.840.1.099676.3.579.2. 1980 Unknown [id number] 2.840.1.449517.3.579.2. 1980 Unknown [id number] 2.840.1.500532.3.579.2. 1980 Unknown [id number] 2.840.1.666560.3.579.2. 1980 Unknown [id number] 2.840.1.412939.3.579.2. 1980 Unknown [id number] 2.840.1.318719.3.579.2. 1980 Unknown [id number] 2.840.1.435516.3.579.2. 1980 Unknown [id number] 2.840.1.058832.3.579.2. 1980 Unknown [id number] 2.840.1.104374.3.579.2. 1980 Unknown [id number] 2.840.1.683942.3.579.2. 1980 Unknown [id number] 2.16840.1.421678.3.579.2. 1980 Unknown [id number] 2.16840.1.404211.3.579.2. 1980 Unknown [id number] 2.840.1.790043.3.579.2. 173 1980 Unknown [id number] 2.16.840.1.777795.3.579.2. 1980 Unknown [id number] 2.16.840.1.723360.3.579.2. 1980 Unknown [id number] 2.16.840.1.086333.3.579.2. 1980 Unknown [id number] 2.16.840.1.493752.3.579.2. 1980 Unknown [id number] 2.16.840.1.189996.3.579.2. 1980 Unknown [id number] 2.16840.1.742858.3.579.2. 1980 Unknown [id number] 2.16.840.1.310659.3.579.2. 1980 Unknown [id number] 2.16840.1.368370.3.579.2. 1980 Unknown [id number] 2.840.1.883687.3.579.2. 1258 1980 Unknown [id number] 2.840.1.678628.3.579.2. 1258 1980 Unknown [id number] 2.16840.1.713507.3.579.2. 1258 1980 Unknown [id number] 2.16840.1.230468.3.579.2. 1258 1980 Unknown [id number] 2.16840.1.782519.3.579.2. 1258 1980 Unknown [id number] 2.16840.1.443177.3.579.2. 1258 1980 Unknown [id number] 2.16840.1.708236.3.579.2. 1258 1980 Unknown [id number] 2.16840.1.578149.3.579.2. 196 1980 Unknown [id number] 2.16.840.1.052432.3.579.2. 196 1980 Unknown [id number] 2.16.840.1.044398.3.579.2. 196 1980 Unknown [id number] 2.16.840.1.541576.3.579.2. 196 1959 Medicaid [id number] Unknown [id number] Unknown [id number] Unknown [id number] Social History Date Type Detail Facility Start: 09-02-2017 End: 03-10-2023 Tobacco smoking status WYIS Never smoked tobacco [facility] Start: 09-02-2017 End: 03-10-2023 Tobacco use and exposure Smokeless tobacco non-user [employer] Phone: Start: 10-11-2021 End: 01-13-2024 Alcohol intake Current non-drinker of alcohol (finding) [employer]: Start: 1980 Sex Assigned At Not on file B ON [email or web address] Phone: Start: 10-01-2021 End: 10-22-2021 Exposure to SARS-CoV-2 (event) Not sure [employer] Phone: Start: 10-11-2021 End: 04-28-2024 Sex Assigned At [facility] Tobacco smoking status Never [facility] Start: 10-11-2021 End: 04-28-2024 History of Social function [facility] Start: 1980 Sex Assigned At Female F [facility] How often to you hav e a drink containing alcohol? Never [facility] Start: 02-11-2024 End: 04-28-2024 Alcoholic beverage intake Lifetime non-drinker (finding) [facility] Start: 03-11-2024 Sex Patient sex un known (finding) [facility] Clinical Notes 10-22-2021 to 04-28-2024 Mendez Cardoso, - 04/28/2024 10:30 AM ESTSfernandez Ribeiro, JOHN - 04/18/2024 10:50 AM ESTTelephone Encounter - Austin Gregorio - 04/13/2024 1:29 PM Andrea Zambrano MD [...] deficit hyperactivity disorder (CMS/HCC) 04/27/2024 Bipolar disorder (CMS/HCC) Body mass index (BMI) of 36.0 to 36.9 Cholecystitis 2017 Acute/chronic Chronic rhinitis Circadian rhythm sleep disorder, shift work type 04/27/2024 Controlled type 2 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, without long-term current use of insulin (CMS/HCC) Disorder of sacrum 01/29/2023 Gastritis 2017 GERD (gastroesophageal reflux disease) Hyperlipemia (CMS/HCC) Impulse control disorder (CMS/HCC) 04/27/2024 Insertion of Nexplanon Iron deficiency anemia Kidney stones Macromastia 10/08/2023 Mass of upper outer quadrant of right breast 06/02/2023 Mixed bipolar affective disorder, moderate ([facility]) 04/27/2024 OCD (obsessive compulsive disorder) ([facility]) Open wound of toe without complication 03/10/2023 PTSD (post-traumatic stress disorder) ([facility]) Recurrent epistaxis Seasonal allergies Symptomatic mammary hypertrophy 06/02/2023 Type 2 diabetes mellitus with hyperglycemia ([facility]) Umbilical hernia 2017 Vitamin D deficiency Current [...] Never Sexual activity: Yes control/protection: Implant Comment: zoran 03/10/2023 Other Topics Concern Not on file Social History Narrative Not on file Social Drivers of Health Financial Resource Strain: Not on file Food Insecurity: No Food Insecurity (10/05/2023) Received from [facility] Hunger Screening Within the past 12 [...] Patient encouraged to follow up with her brick setter operator regarding the significant evidence of laryngopharyngeal reflux noted on endoscopy documented in this encounter [facility] 04-18-2024 History of Present illness Narrative Reason [...] Noted Acute cholecystitis 09/15/2016 Anemia 03/10/2023 Asthma ([facility]) 03/10/2023 Axillary lymphadenopathy 05/10/2020 Bilateral foot pain 03/10/2023 Cervical disc displacement 09/21/2017 Chronic rhinitis 03/10/2023 Disc displacement, lumbar 10/11/2018 Diverticulitis 03/10/2023 Intervertebral disc 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 12/02/2022 Lumbosacral spondylosis without myelopathy 07/22/2018 Obesity 03/10/2023 Primary osteoarthritis, left ankle and foot 03/10/2023 PTSD (post-traumatic stress disorder) ([facility]) 06/16/2018 Recurrent epistaxis 03/10/2023 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 ([facility]) 11/10/2017 Well woman exam with routine gynecological exam 05/25/2023 Type 2 diabetes mellitus with hyperglycemia ([facility]) 02/11/2024 Vitamin D deficiency, unspecified 02/11/2024 Hyperlipidemia, unspecified ([facility]/HCC) 02/11/2024 Resolved Ambulatory Problems Diagnosis Date Noted Hot flashes 03/10/2023 Postoperative abscess 09/28/2016 Open wound of toe without complication 03/10/2023 Disorder of sacrum 01/29/2023 Macromastia 10/08/2023 Mass of upper outer quadrant of right breast 06/02/2023 Symptomatic mammary hypertrophy 06/02/2023 Past Medical History: Diagnosis Date Bipolar disorder (CMS/[facility]) Body mass index (BMI) of 36.0 to 36.9 Cholecystitis 2017 Controlled type 2 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, without long-term current use of insulin (CMS/[facility]) Gastritis 2017 GERD (gastroesophageal reflux disease) Hyperlipemia ([facility]) Insertion of Nexplanon Iron deficiency anemia Kidney stones OCD (obsessive compulsive disorder) (CMS/[facility]) Seasonal allergies Umbilical hernia 2017 Vitamin D deficiency HISTORY PAST MEDICAL HISTORY SOCIAL HISTORY Past Medical History: Diagnosis Date Anemia Bipolar disorder ([facility]) Body mass index (BMI) of 36.0 to 36.9 Cholecystitis 2017 Acute/chronic Chronic rhinitis Controlled type 2 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, without long-term current use of insulin ([facility]) Disorder of sacrum 01/29/2023 Gastritis 2017 GERD (gastroesophageal reflux disease) Hyperlipemia ([facility]) Insertion of Nexplanon Iron deficiency anemia Kidney stones Macromastia 10/08/2023 Mass of upper outer quadrant of right breast 06/02/2023 OCD (obsessive compulsive disorder) ([facility]) Open wound of toe without complication 03/10/2023 PTSD (post-traumatic stress disorder) ([facility]) Recurrent epistaxis Seasonal allergies Symptomatic mammary hypertrophy 06/02/2023 Type 2 diabetes mellitus with hyperglycemia ([facility]) Umbilical hernia 2017 Vitamin D deficiency Social [...] Roel Garber DO documented in this encounter [facility] 04-13-2024 Telephone encounter Note PA needed for mounjaro. Thank you! [facility] 04-13-2024 Miscellaneous Notes PA needed for mounjaro. Thank you! documented in this encounter [facility] 04-07-2024 History of Present illness Narrative Karma [...] yet. HPI: 06/2020 New patient sent from [facility] for uncontrolled diabetes. A1c of 9.3 in [...] Medical History: Diagnosis Date Anemia Bipolar disorder ([facility]) Body mass index (BMI) of 36.0 to 36.9 Cholecystitis 2017 Acute/chronic Chronic rhinitis Controlled type 2 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, without long-term current use of insulin ([facility]) Disorder of sacrum 01/29/2023 Gastritis 2017 GERD (gastroesophageal reflux disease) Hyperlipemia ([facility]) Insertion of Nexplanon Iron deficiency anemia Kidney stones Macromastia 10/08/2023 Mass of upper outer quadrant of right breast 06/02/2023 OCD (obsessive compulsive disorder) ([facility]) Open wound of toe without complication 03/10/2023 PTSD (post-traumatic stress disorder) ([facility]) Recurrent epistaxis Seasonal allergies Symptomatic mammary hypertrophy 06/02/2023 Type 2 diabetes mellitus with hyperglycemia ([facility]) Umbilical hernia 2017 Vitamin D deficiency Past [...] 2 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, unspecified whether senior care insulin use ([facility]) - POCT glycosylated hemoglobin (Hb A1C) docked [...] exercise reviewed with the patient Hyperlipemia, mixed ([facility]) Class 2 severe obesity due to excess calories with serious comorbidity and body mass index (BMI) of 39.0 to 39.9 in adult ([facility] [place]) Follow up in about 4 months (around 08/05/2024). documented in this encounter [facility] 02-16-2024 Telephone encounter Note Pt would like ot know if you can try to get the ozempic approved again. She's gained 20lbs on trulicity. [facility] 02-16-2024 Miscellaneous Notes Pt would like ot know if you can try to get the ozempic approved again. She's gained 20lbs on trulicity. documented in this encounter [facility] 02-09-2024 History of Present illness Narrative [facility] Inpatient/Observation/Outpatient Rehabilitation Date: 02/09/2024 Patient Name: Karma Candelaria [x] Inpatient Acute/Observation [] Outpatient : 1980 02/16/24 Plan of Care/Recert ends [x] Pt no showed for scheduled appointment Patient was called and reported she is not feeling well. She reports she has upcoming cardiac testing. She reports she will call to reschedule when she's feeling better. Jan Olmtsead PT, DPT, OCS, Cert. DN Date: 02/09/2024 documented in this encounter [facility] 01-13-2024 Hospital Discharge instructions Lisette Junior DO - 01/13/2024 5:40 PM EST Increase your fluid intake. Follow-up with your doctor to discuss your medications especially the gabapentin and cyclobenzaprine which can certainly make you feel tired and groggy all the time. The following attachments cannot be sent through Care Everywhere.Dizziness ([place])documented in this encounter [facility] 11-30-2023 Telephone encounter Note I called [...] believes that the device is MRI compatible. [facility] 11-30-2023 Miscellaneous Notes I called Dr Brito's [...] Inspire device. Her BMI is 35.96, will [place] allow this BMI Her HST is from 04/2022, does need this updated Will she be able to have MRIs If all of this is ok we will send for Inspire consult We will need to call her with an update documented in this encounter [facility] 11-30-2023 Telephone encounter Note Please call Dr. Brito office and ask the following questions in regards to Inspire device. Her BMI is 35.96, will [place] allow this BMI Her HST is from 04/2022, does need this updated Will she be able to have MRIs If all of this is ok we will send for Inspire consult We will need to call her with an update [facility] 11-30-2023 History of Present illness Narrative Images [...] Medical History: Diagnosis Date Anemia Bipolar disorder ([facility]) Body mass index (BMI) of 36.0 to 36.9 Cholecystitis 2016 Acute/chronic Chronic rhinitis Controlled type 2 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, without long-term current use of insulin (CMS/HCC) Gastritis 2017 GERD (gastroesophageal reflux disease) Hyperlipemia ([facility]) Insertion of Nexplanon Iron deficiency anemia Kidney stones OCD (obsessive compulsive disorder) ([facility]) Open wound of toe without complication 03/10/2023 PTSD (post-traumatic stress disorder) ([facility]) Recurrent epistaxis Seasonal allergies Umbilical hernia 2017 [...] on. She understands the risk of stroke, [place] and without wearing it. She states she [...] She did switch to a provider in [place]. They did change her zanaflex and mobic [...] and see if BMI of 36 with [place] is feasible for Inspire device, if it [...] was counseled on the risks of stroke, [place], and sudden with JADON, along with the need for compliance with the CPAP/BiPAP treatment. 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 . Called PT back at ten minutes late and asked where she was. Said she was still clear across [facility]. We let her know we would not be able to see her due to our late policy. She said OH MY GOD! THAT'S RIDICULOUS. THIS IS NOT OK! Told her sorry but she was over ten minutes late and we would see her at her next appt. documented in this encounter [facility] 08-26-2023 History of Present illness Narrative [facility] Outpatient Physical Therapy Daily Note Patient: Karma Candelaria : 1980 CSN #: [id number] Referring Physician: Shawna Dudley DO Date: 08/26/2023 Diagnosis: Z76.89 - Persons encountering health services in other specified circumstances Treatment Diagnosis: pain in cervical and LB Onset Date: 02/18/23 PT Insurance Information: [employer] Plan Total # of Visits Approved: 24 [...] the cervical area and her LB area.-met Power Shovel Operator Goals Time Frame for Alf Goals : 6 visits Power Shovel Operator Goal 1: Pt will be independent and compliant with exercise while maintaining improved posture 50% of the time. Alf Goal 2: Pt will be able to perform full cervical ROM without increase complaints of baseline pain with initiation to demonstrate imporved control of pain. Power Shovel Operator Goal 3: Pt will report 40% improvement in overall complaints and improved tolerance to her job tasks. Minutes Tracking: Time In: 1430 Time Out: 1500 Minutes: 30 Timed Code Treatment Minutes: 29 Minutes Kofi Villegas PT, DPT Date: 08/26/2023 documented in this encounter [facility] 08-21-2023 History of Present illness Narrative Physical Therapy Disregard the no show note on 08/17. This was added in error. [facility] Outpatient Physical Therapy Daily Note Patient: Karma Candelaria : 1980 [facility] #: [id number] Referring Physician: Shawna Dudley DO Date: 08/21/2023 Treatment Diagnosis: pain in cervical and LB Onset Date: 02/18/23 PT Insurance Information: [facility] Total # of Visits Approved: 24 Per [...] Frame for Alf Goals : 6 visits Power Shovel Operator Goal 1: Pt will be independent and compliant with exercise while maintaining improved posture 50% of the time. Power Shovel Operator Goal 2: Pt will be able [...] DPT Date: 08/21/2023 documented in this encounter [facility] 08-11-2023 History of Present illness Narrative [facility] Outpatient Physical Therapy Daily Note Patient: Karma Candelaria : 1980 CSN #: [id number] Referring Physician: Shawna Dudley DO Date: 08/11/2023 Diagnosis: Z76.89 - Persons encountering health services in other specified circumstances Treatment Diagnosis: pain in cervical and LB Onset Date: 02/18/23 PT Insurance Information: [employer] Total # of Visits Approved: 24 Per Physician Order Total # of Visits to Date: 17 No Show: 0 Canceled Appointment: 0 08/28/23 Plan of Care/Recert Due Pre-Treatment Pain: 08/09 Subjective: Patient reports 10 cervical spine and R LBP coming into [...] pt required further clarification. Post Treatment Pain: 6/10 Plan Plan Frequency: up to 4 visits, [...] Frame for Alf Goals : 6 visits Power Shovel Operator Goal 1: Pt will be independent and compliant with exercise while maintaining improved posture 50% of the time. Power Shovel Operator Goal 2: Pt will be able to perform full cervical ROM without increase complaints of baseline pain with initiation to demonstrate imporved control of pain. Power Shovel Operator Goal 3: Pt will report 40% improvement in overall complaints and improved tolerance to her job tasks. Power Shovel Operator Goal 4: Pt kvng UE strength will be 5/5 without increasing pain complaints to assist in tolerance of lifting and carrying. Minutes Tracking: Time In: 1330 Time Out: 1400 Minutes: 30 Timed Code Treatment Minutes: 28 Minutes Jan Olmstead PT, DPT Date: 08/11/2023 documented in this encounter [facility] 07-14-2023 History of Present illness Narrative Physical Therapy [facility] Inpatient/Observation/Outpatient Rehabilitation Date: 07/14/2023 Patient Name: [...] does not require skilled services due to: Therapist/Fiber Optics Engineer will attempt to see this patient, at our earliest opportunity. Filomena Raphael Date: 07/14/2023 documented in this encounter [facility] 04-20-2023 Hospital Discharge instructions Precious Urbina, MANAGER MATERIALS MANAGEMENT - GYRO MECHANIC - 04/20/2023 1:50 PM EST Increase fluid Tylenol Motrin for cough Continue home medications Electronically signed by Precious Urbina, MANAGER MATERIALS MANAGEMENT - GYRO MECHANIC at 04/20/2023 1:52 PM EST The following attachments cannot be sent through Care Everywhere.Head Injury: Closed: General Info ([place])Cervical Strain ([place])documented in this encounter [facility] 03-05-2023 Evaluation note Encounter Date Diagnosis Assessment [...] was counseling done by myself, Rhina ROBERTSON. [employer] Other 01-01-2024 Hospital Discharge instructions* Discharge Instructions* Sil Sullivan DO - 03/02/2023 7:49 PM EST Please follow-up with your GI doctor, trial enema at home, return to the ER for worsening abdominalpain, inability to pass gas, or nausea, vomiting * Attachments The following attachments cannot be sent through Care Everywhere. * Constipation ([place]) [facility]* Encounter Date Diagnosis Assessment Notes Treatment Notes Treatment Clinical Notes Jan, Constipation, unspecified constipation type (ICD-10 - K59.00) Jan, Constipation (ICD-10 - K59.00) [employer] Other 12-07-2023 Evaluation note* Encounter Date Diagnosis [...] R10.9) Jan, Rectal bleed (ICD-10 - K62.5) [employer] Other 11-16-2023 Evaluation note* Encounter Date Diagnosis [...] was counseling done by myself, Rhina ROBERTSON. [employer] Other 11-08-2023 Evaluation note* Encounter Date Diagnosis [...] HAVE PATIENT START DOCUSATE 3 CAPSULES DAILY. [employer] Other 06-29-2023 Evaluation note* Encounter Date Diagnosis Assessment Notes Treatment Notes Treatment Clinical Notes Jul, Obesity (ICD-10 - E66.9) Jul, BMI 34.0-34.9,adult (ICD-10 - Z68.34) Jul, Other Summary of Eliza cuadra: (A) discussed continuing to work on small goals until stress decreases and she has the energy to increase goals (B) discussed healhtier choices at [place]- food blog reviewed (C) reviewed food storage tips for keeping produce fresh longer Patient set the following goals: - NEW: continue to choose sugar free beverages- not reviewed [employer] Other 05-30-2023 Evaluation note* Encounter Date Diagnosis [...] was counseling done by myself, Rhina ROBERTSON. [employer] Other 03-21-2023 Evaluation note* Encounter Date Diagnosis [...] was counseling done by myself, Rhina ROBERTSON. [employer] Other 02-07-2023 Evaluation note* Encounter Date Diagnosis [...] set the following goals: not reviewed today [employer] Other 02-07-2023 Evaluation note* Encounter Date Diagnosis [...] was counseling done by myself, Rhina ROBERTSON. [employer] Other 12-28-2022 Evaluation note* Encounter Date Diagnosis [...] patient set personal goal using given handout. [employer] Other 12-27-2022 Evaluation note* Encounter Date Diagnosis [...] was counseling done by myself, Rhina ROBERTSON. [employer] Other 12-01-2022 NotePROCEDURE: XR ANKLE LT MIN [...] Electronically authenticated by: ONEL CLARK Date: 2022-01-29 22:30[facility]12-01-2022 NotePROCEDURE: XR ANKLE LT MIN 3 [...] Electronically authenticated by: ONEL CLARK Date: 2022-01-29 22:30[facility]11-15-2022 Evaluation note* Encounter Date Diagnosis Assessment [...] was counseling done by myself, Rhina ROBERTSON. [employer] Other 10-05-2022 Evaluation note* Encounter Date Diagnosis [...] was counseling done by myself, Rhina ROBERTSON. [employer] Other 08-30-2022 Evaluation note* Encounter Date Diagnosis Assessment Notes Treatment Notes Treatment Clinical Notes Sep, Fatty liver (ICD-10 - K76.0) ENCOURAGED WEIGHT LOSS Sep, Obesity (BMI 30-39.9) (ICD-10 - E66.9) [employer] Other 08-23-2022 Hospital Discharge instructions* Discharge Instructions* Stanley Almonte PA-C - 10/22/2021 2:03 PM EDT Follow-up with primary care doctor 7 to 10 days for reevaluation. Take Motrin 800 mg as directed with food. Start eardrops left ear as directed. Promptly return to emergency department for new, changing or worsening of symptoms or other concerns. [facility] [email or web address] Phone: evaluation + Plan note No data available for this section [facility] Diagnosis Pilonidal cyst- Primary Pilonidal cyst without mention of abscess documented in this encounter [facility] [email or web address] Phone: evaluation note* Diagnosis Acute diffuse otitis externa of left ear- Primary documented in this encounter [facility] [email or web address] Phone: evaluation noteNo InformationNort [employer] Other Evaluation note* Diagnosis Constipation, unspecified constipation type- Primary documented in this encounter [facility] noteNo assessment information available [facility] Work Phone: Evaluation note* Diagnosis Closed head injury, initial encounter- Primary Fall due to slipping on ice or snow, initial encounter Acute cervical myofascial strain, initial encounter documented in this encounter [facility]* Diagnosis Onset Date Resolution Status ADHD acute BMI 36.0-36.9,adult acute Constipation acute Diabetes mellitus with hyperglycemia acute Fatty liver acute IBS (irritable bowel syndrome) acute Obesity acute Shifting sleep-work schedule, affecting sleep acute Constipation acute Elevated liver function tests acute Fatty liver acute IBS (irritable bowel syndrome) acute [facility] Work Phone: Evaluation note* Diagnosis Dizziness- Primary Dizziness and giddiness documented in this encounter [facility]* Diagnosis JADON (obstructive sleep apnea)- Primary Obstructive sleep apnea (adult) (pediatric) Tension headache Chronic bilateral low back pain, unspecified whether sciatica present Paresthesias Disturbance of skin sensation documented in this encounter [facility] Healthcare[facility]* Diagnosis JADON (obstructive sleep apnea)- Primary Obstructive sleep apnea (adult) (pediatric) documented in this encounter [facility] HealthcareEvaluation note* Diagnosis Chronic rhinitis documented in this encounter [facility] Healthcare[facility] note* Diagnosis 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, unspecified whether senior care insulin use ([facility])- Primary Vitamin D deficiency Weight gain Other symptoms concerning nutrition, metabolism, and development Encounter for dietary consultation Hyperlipemia, mixed ([facility]) Mixed hyperlipidemia Class 2 severe obesity due to excess calories with serious comorbidity and body mass index (BMI) of 39.0 to 39.9 in adult ([facility]) documented in this encounter [facility] HealthcareEvaluation note* Diagnosis Hormone imbalance Hormone disorder Unspecified endocrine disorder Toenail fungus documented in this encounter [facility] HealthcareEvaluation note* Diagnosis Obstructive sleep apnea- Primary Obstructive sleep apnea (adult) (pediatric) Intolerance of continuous positive airway pressure (CPAP) ventilation Body mass index 34.0-34.9, adult Body Mass Index 34.0-34.9, adult documented in this encounter [facility] HealthcareHistory general Narrative - Reported* Type Description Date Medical History PTSD Medical History DIVERTICULITOUS Surgical History 2 BACK INJECTIONS 2014 Surgical History LEFT ANKLE 2001 Surgical History CHOLECYSTECTOMY Hospitalization History SEE ABOVE [employer] Other History general Narrative - Reported* Type Description Date Medical History PTSD Medical History DIVERTICULITOUS Medical History bipolar Medical History ADHD Surgical History 2 BACK INJECTIONS 2014 Surgical History LEFT ANKLE 2002 Surgical History CHOLECYSTECTOMY Surgical History nasal surgery Hospitalization History SEE ABOVE [employer] Other Hispohv general Narrative - Reported* Type Description Date Medical History PTSD Medical History DIVERTICULITOUS Medical History bipolar Medical History ADHD Surgical History 2 BACK INJECTIONS 2014 Surgical History LEFT ANKLE 2002 Surgical History CHOLECYSTECTOMY Surgical History nasal surgery Surgical History right Rotator surgery 05-15-22 Hospitalization History SEE ABOVE [employer] Other Hisvsvs general Narrative - Reported* Type Description Date Medical History PTSD Medical History DIVERTICULITOUS Medical History bipolar Medical History ADHD Medical History rotator cuff tear Surgical History 2 BACK INJECTIONS 2014 Surgical History LEFT ANKLE 2002 Surgical History CHOLECYSTECTOMY Surgical History nasal surgery Surgical History right Rotator surgery 05-15-22 Hospitalization History SEE ABOVE [employer] Other Hisfvbe general Narrative - Reported* Type Description Date Medical History PTSD Medical History DIVERTICULITOUS Medical History bipolar Medical History ADHD Medical History rotator cuff tear Surgical History 2 BACK INJECTIONS 2014 Surgical History LEFT ANKLE 2001 Surgical History CHOLECYSTECTOMY Surgical History nasal surgery Surgical History right Rotator surgery 05-15-22 Surgical History Neck injections/root burnt 12/31 Hospitalization History SEE ABOVE [employer] Other Hisgomj general Narrative - Reported* Type Description Date Medical History PTSD Medical History DIVERTICULITOUS Medical History bipolar Medical History ADHD Medical History rotator cuff tear Surgical History 2 BACK INJECTIONS 2014 Surgical History LEFT ANKLE 2002 Surgical History CHOLECYSTECTOMY Surgical History nasal surgery Surgical History right Rotator surgery 05-15-22 Surgical History Neck injections/root burnt 12/31 Hospitalization History SEE ABOVE [facility] [employer] Other Hospital Discharge instructions* Attachments The following attachments cannot be sent through Care Everywhere. * Pilonidal Abscess ([place]) [facility] Work Phone: Hospital Discharge instructions No data available for this section [facility] No data available for this section [facility] for [facility] (narrative)* Consultation (Routine) - Pending Review Specialty Diagnoses / Procedures Referred By Contwilliam t Referred To Contact Otolaryngology Diagnoses JADON (obstructive sleep apnea) Procedures [place] OFFICE/OUTPATIENT NEW HIGH MDM 60 MINUTES Brittany Neville NP [address] [place] [address] Referral ID Status Reason Start Date Expiration Date Visits Requested Visits Authorized [id number] Pending Review Specialty Services Required 11/30/2023 05/28/2024 [...] DATE CREATED AUTHOR 08/26/[address] [facility] DATE CREATED AUTHOR AUTHOR'S ORGANIZ ATION 05/30/2022 [facility] DATE CREATED AUTHOR AUTHOR'S ORGANIZ ATION 01/18/2023 [facility] DATE CREATED AUTHOR AUTHOR'S ORGANIZ ATION 06/04/2023 [facility] DATE CREATED AUTHOR AUTHOR'S ORGANIZ ATION 10/10/2023 [facility] DATE CREATED AUTHOR AUTHOR'S ORGANIZ ATION 12/22/2023 [facility] DATE CREATED AUTHOR AUTHOR'S ORGANIZ ATION 02/12/2024 [facility] DATE CREATED AUTHOR AUTHOR'S ORGANIZ ATION 03/15/2024 [facility] DATE CREATED AUTHOR AUTHOR'S ORGANIZ ATION 05/12/2024 [facility] DATE CREATED AUTHOR AUTHOR'S ORGANIZ ATION 05/16/2024 [facility] Reason for Visit (unrecogniz ed section [...] Dispensed Refills Start Date End Da te aovwcjgi-tpalpihpa-vlykog ortisone (CORTISPORIN) 3.5-58324-[address] 4 drops into the [...] 60 mg, IntraMUSCular, ONCE, 1 dose, On Mon 24 at [phone] (Given - Provid er: [...] Care Teams (unrecognized sec tion and content) Priming Powder Premix Blender Relationship Specialty Start Date End Date Shawna Dudley DO [address] [place], [place] [id number] PCP - General Family Medicine 10/12/21 Priming Powder Premix Blender Relationship Specialty Start Date End Date Shawna Dudley DO [address] [facility] [place], [place] [id number] PCP - General Family Medicine 10/12/21 Priming Powder Premix Blender Relationship Specialty Start Date End Date Shawna Dudley DO [address] [facility] [place] [id number] PCP - General Family Medicine 10/12/21 Priming Powder Premix Blender Relationship Specialty Start Date End Date Shawna Dudley DO [address] [place], [place] [id number] PCP - General Family Medicine 10/12/21 Team [...] Care Provider Active Start: March 18, 2023 Priming Powder Premix Blender Relationship Specialty Start Date End Date Shawna Dudley, DO [address] [place] [place] [address] PCP - General Family Medicine 10/12/21 Priming Powder Premix Blender Relationship Specialty Start Date End Date RumVicky de pazty, DO [address] [facility], [place] [id number] PCP - General Family Medicine 10/12/21 Team Status: Active Member Role Status Dates Rory Driver [facility] Primary Care Provider Active Team Status: Inactive Member Role Status Dates Gayathri Adams APRN Attending Provider Active Start: May 21, 2023 End: May 21, 2023 Rory Driver , [facility] Primary Care Provider Active Start: May 21, 2023 End: May 21, 2023 Team Status: Inactive Member Role Status Dates Jan Garg APRN Attending Provider Active Start: May 21, 2023 End: May 21, 2023 Rory Driver , [facility] Primary Care Provider Active Start: May 21, 2023 End: May 21, 2023 Priming Powder Premix Blender Relationship Specialty Start Date End Date Shawna Dudley, DO [address] [place] [address] PCP - General Family Medicine 10/12/21 Priming Powder Premix Blender Relationship Specialty Start Date End Date Shawna Dudley DO [address] [place], [place] [id number] PCP - General Family Medicine 10/12/21 Priming Powder Premix Blender Relationship Specialty Start Date End Date Loreto Mcneal APRN - PRIMING MACHINE OPERATOR [address] [place] [address] [place] [address] PCP - General 11/11/23 Priming Powder Premix Blender Relationship Specialty Start Date End Date Loreto Mcneal APRN - PRIMING MACHINE OPERATOR [address] [place] [address] PCP - General 11/11/23 Priming Powder Premix Blender Relationship Specialty Start Date End Date Loreto Mcneal APRN - PRIMING MACHINE OPERATOR [address] [facility] [address] PCP - General 11/11/23 Priming Powder Premix Blender Relationship Specialty Start Date End Date Loreto Mcneal APRN - PRIMING MACHINE OPERATOR [address] [facility] [address] PCP - General 11/11/23 Priming Powder Premix Blender Relationship Specialty Start Date End Date Shawna Dudley DO [address] [place] [address] PCP - General Family Medicine 04/14/22 Key Andrea NP [address] [place] [address] Referring Physician Family Medicine 08/13/23 Priming Powder Premix Blender Relationship Specialty Start Date End Date Key Andrea NP [address] [place] [address] Referring Physician Family Medicine 08/13/23 Priming Powder Premix Blender Relationship Specialty Start Date End Date Key Andrea NP [address] [place] [address] Referring Physician Family Medicine 08/13/23 Priming Powder Premix Blender Relationship Specialty Start Date End Date Key Andrea, JO ANN [address] [place], [place] [phone] Referring Physician Family Medicine 08/13/23 Priming Powder Premix Blender Relationship Specialty Start Date End Date Shawna Dudley DO [address] [place], [place] [phone] PCP - General Family Medicine 04/14/22 Key Andrea, PRIMING MACHINE OPERATOR [address] [place] [address] Referring Physician Family Medicine 08/13/23 Team Status: Inactive Member Role Status Dates Rory Driver [facility] Primary Care Provider Active Start: January 21, 2024 End: January 21, 2024 MELE Best Attending Provider Active Start: January 21, 2024 End: January 21, 2024 Team Status: Inactive Member Role Status Dates Rory Driver [facility] Primary Care Provider Active Start: March 09, 2024 End: March 09, 2024 Mio Marroquin DO Attending Provider Active S tart: March 09, 2024 End: March 09, 2024 Priming Powder Premix Blender Relationship Specialty Start Date End Date Shawna Dudley DO [address] [place], [place] [id number] PCP - General Family Medicine 04/14/22 Key Andrea, PRIMING MACHINE OPERATOR [address] [place] [address] Referring Physician Family Medicine 08/13/23 Priming Powder Premix Blender Relationship Specialty Start Date End Date Shawna Dudley DO [address] [place], [place] [id number] PCP - General Family Medicine 04/14/22 Key Andrea, PRIMING MACHINE OPERATOR [address] [place] [address] Referring Physician Family Medicine 08/13/23 Priming Powder Premix Blender Relationship Specialty Start Date End Date Shawna Dudley DO [address] [place] [address] PCP - General Family Medicine 04/14/22 Key Andrea, PRIMING MACHINE OPERATOR [address] [place] [address] Referring Physician Family Medicine 08/13/23 Priming Powder Premix Blender Relationship Specialty Start Date End Date Shawna Dudley DO [address] [place] [address] PCP - General Family Medicine 04/14/22 Key Andrea, PRIMING MACHINE OPERATOR [address] [place] [address] Referring Physician Family Medicine 08/13/23 Priming Powder Premix Blender Relationship Specialty Start Date End Date Shawna Dudley DO [address] [place] [address] PCP - General Family Medicine 04/14/22 Key Andrea, PRIMING MACHINE OPERATOR [address] [place] [address] Referring Physician Family Medicine 08/13/23 Priming Powder Premix Blender Relationship Specialty Start Date End Date Shawna Dudley DO [address] [place] [address] PCP - General Family Medicine 04/14/22 Key Andrea, PRIMING MACHINE OPERATOR [address] [place] [address] Referring Physician Family Medicine 08/13/23 Goals (unrecognized [...] BE BASED ON THE PRIMARY CLINICAL RECORDS. [facility] [facility]. provides no warranty or guarantee of the accuracy or completeness of information in this document.
== END 2024-05-27 07:34 | disposition home or self-care (01) ==
LOC: MAMMO 07:33
PROVIDERS: PCP Nurse Practitioner Family; Visit Provider Obstetrics & Gynecology
DX: Z12.31 Encounter for screening mammogram for malignant neoplasm of breast (principal); Z82.62 Family history of osteoporosis; E55.9 Vitamin D deficiency, unspecified; M19.072 Primary osteoarthritis, left ankle and foot; Z79.85 Long-term (current) use of injectable non-insulin antidiabetic drugs; M85.80 Other specified disorders of bone density and structure, unspecified site
CPT/HCPCS: 77063; 77067; 77080

== ENCOUNTER 2024-06-04 11:42 | Emergency (ER) | payer OTHER, SELFPAY ==
--- OUTSIDE RECORDS SUMMARY | 2024-06-04 11:50 | XMS_ITS | CCD ---
Author Organization [facility]ini[facility] Care Team Providers Care Mineralogy Professor Name Role Phone Juan Ramon Jean Unavailable Unavailable FernandosilvestreJuan Ramon marie Unavailable Unavailable DOMENICA OLIVA Unavailable Unavailable Rumschlag Shawna MARQUEZ Primary Care Provider Yo Blank Unavailable Gayathri Adams Unavailable Tamar Sosa Unavailable SHIRLENE ., DR VARGAS Attending Unavailable SHIRLENE ., DR VARGAS Consulting Unavailable MISC, DR TRAORE Primary Care Unavailable SHIRLENE ., DR VARGAS Admitting Unavailable HIGHLANDER, JOY Reis Admitting Unavailable DEFRANCE, DR METZGER Primary Care Unavailable ZIEBER, DR ONEL Sesay Consulting Unavailable HIGHLANDER, JOY Reis Attending Unavailable HIGHLANDERJOY Consulting Unavailable SHAMMO, RORY Admitting Unavailable SHAMMO, RORY Attending Unavailable SHAMMORORY Consulting Unavailable MISC, DR TRAORE Primary Care Unavailable MISC, DR TRAORE Primary Care Unavailable MISC, DR TRAORE Admitting Unavailable MISC, DR TRAORE Attending Unavailable MISC, DR TRAORE Consulting Unavailable Jan Garg Unavailable DOMENICA OLIVA Primary Care Physician HILARY GRANADO Referring Unavailable HILARY GRANADO Attending Unavailable Rumschlag DO Shawna Primary Care Provider MD Yo Blank Attending Provider DO Shawna Dudley Primary Care Provider RUMSCHLAG, SHAWNA K Referring Unavailable RUMSCHLAG, SHAWNA K Primary Care Unavailable RUMSCHLAG, SHAWNA K Referring Unavailable RUMSCHLAG, SHAWNA K Primary Care Unavailable FORTINO ROBLEDO Attending Unavailable JORGE, LISA Referring Unavailable RUMSCHLAG, SHAWNA K Primary Care Unavailable ADAM MASSEY Attending Unavail able RUMSCHLAG, SHAWNA K Referring Unavailable SERVICES, [facility] Primary Care Unava ilable Fredis DIETETICS DIRECTOR - PARTS PULLER, Loreto Primary Care [facility] ider SERVICES, [facility] Primary Care Unava ilable SHAMMO, [...] Care Unavailable JORGE, LISA Referring Unavailable SERVICES, [facility] Primary Care Unava ilable GAURAV [...] Care Unavailable RUMSCHLAG, SHAWNA Referring Unavailable Zully PARTS PULLER, Key Unavailable Rumschlag DO, Shawna Primary Care [facility], Rory T Primary Care Provider [phone] Mio Marroquin DO Attending Provider Unavailab le NON STAFF Primary Care Unavailable Yo Blank Admitting Unavailable Yo Blank Attending Unavailable Mio Marroquin Attending Unavailable Shammo, Rory T Primary Care Unavailable Mio Marroquin Admitting Unavailable Shammo, Rory T Primary Care Unavailable Myrtle Cerna Admitting Unavailable Myrtle Cerna Attending Unavailable Bk DALE, Andmelisa Stoddard Attending Unavailable Bk DALE, Andrius Stoddard Attending Unavailable Bk DALE, Andrius Stoddard Attending Unavailable Bk DALE, Andrius Stoddard Attending Unavailable Laila Santos DO Unavailable CLEO ZAMBRANO Attending Unavailable CLEO ZAMBRANO Referring Unavailable ROEL GARBER Attending Unavailable MENDEZ CARDOSO Attending Unavailable LAILA SANTOS Attending Unavailable ROEL GARBER Attending Unavailable LAILA SANTOS Attending Unavailable BRITTANY NEVILLE Attending Unavailable [facility] [phone] Mio Marroquin DO Attending Provider Unavailab le Allergies Allergy Classification Reported Allergen(s) Allergy Type Date of Onset Reaction(s) Facility Cephalosporins (antibiotic) (2 sources) Cephalexin Drug Allergy 7 [facility] Serotonin Reuptake Inhibitors (SSRIs) (2 sources) Citalopram Drug Allergy 7 [facility] (20 sources) cephalexin; Translations: [Keflex] Drug Allergy 3 [facility] Repository (4 sources) citalopram; Translations: [CeleXA] Drug Allergy 3 [facility], heart palpitation [facility] Repository (20 sources) Cephalexin; Translations: [CEPHALEXIN] Drug Allergy 4 Hives [facility] Work Phone: (20 sources) Citalopram; Translations: [CITALOPRAM] Drug Allergy 4 Hives, anaphylaxis [facility] (5 sources) metFORMIN Drug Allergy Unknown [employer] Other (20 sources) metFORMIN; Translations: [METFORMIN] Drug Allergy 3 Unknown, Unknown Reaction [facility] Repository Comment on above: bottoms out to unde r 40 (20 sources) Metformin And Related Propensity to adverse reactions to drug 4 Other (See Comments) [facility] (20 sources) POISON DEVORAH EXTRACT; Translations: [POISON DEVORAH EXTRACT] Propensity to adverse reactions to drug (disorder) 3 [facility] Repository (1 source) Cephalexin Drug Allergy 4 [facility] Repository (1 source) Citalopram Drug Allergy 4 [facility] Repository (1 source) metFORMIN Drug Allergy 4 [facility] Repository Medications Current Medications Medication Drug Class(es) Dates Sig (Normalized) Sig (Original) [id number] 200 actuat albuterol 0.09 mg/actuat metered dose [...] PO Twice daily May 21, 2023 10:20am Start: 05-20-2023 End: 05-21-2023 take 1 tablet [...] B Complex Vitamins (vitamin B complex) tablet (6 sources) Start: 04-20-2024 take 1 tablet by mouth once daily B Complex Vitamins (vitamin B complex) tablet Take 1 tablet by mouth Daily 04/20/2024 Active bifidobacterium animalis [id number] unt / lactobacillus acidophilus [id number] unt oral capsule (5 sources) take 1 capsule by mouth once daily probiotic (ALIGN/RISAQUAD) CAPS capsule Take 1 capsule by mouth daily ALIGN Active bifidobacterium infantis 4 mg oral capsule (20 sources) Start: 01-07-2023 End: 06-02-2024 take 1 capsule by mouth once daily Bifidobacterium Infantis (Align (B.Infantis)) 4 mg capsule Active 4 MG PO Daily June 02, 2024 10:01am cetirizine hydrochloride 10 mg oral tablet (9 sources) Histamine-1 Receptor Antagonist take 1 tablet by mouth once daily ZyrTEC Allergy 10 MG 1 tablet Orally Once a day Active cholecalciferol 0.05 mg oral capsule (20 sources) Vitamin D Start: 05-21-2023 take 1 capsule by mouth once daily Cholecalciferol (Vitamin D3) 50 mcg (2,000 unit) capsule Active 2000 UNIT PO Daily May 21, 2023 12:00am Start: 02-24-2023 take 1 capsule by mo ut in the morning cholecalciferol (Vitamin D-3) 50 MCG (2000 UT) capsule Take 2,000 Units by mouth in the morning. 02/24/2023 Active take 1 capsule by mo uth every twenty-four hours Vitamin D3 50 MCG (2000 UT) 1 capsule Orally Once a day Not-Taking/PRN ciclopirox 7.7 mg/ml topical cream (15 sources) Start: 04-21-2024 ciclopirox (Lo prox) 0.77 [...] mg cyclobenzaprine hydrochloride 10 mg oral tablet (20 sources) Muscle Relaxant Start: 11-16-2023 take 1 [...] sodium 75 mg delayed release oral tablet (20 sources) Nonsteroidal Anti-inflammatory Drug Start: 11-16-2023 take [...] oral capsule (20 sources) Start: 04-29-2023 End: 06-02-2024 take 1 capsule by mouth three times daily Docusate Sodium 100 mg capsule Active 100 MG PO Three times daily 90 June 02, 2024 10:01am Start: 01-07-2023 take 3 capsules by m [...] release(DR/EC) Active 60 MG PO Daily October 15, 2023 12:00am Start: 05-21-2023 take 30 mg by mouth once daily Duloxetine Active 30 MG PO Daily May 21, 2023 12:00am take 2 capsules by m outh in the morning DULoxetine (Cymbalta) [address] capsule Take 60 mg by mouth in the morning and 60 mg before bedtime. Do not crush or chew.. Active take 1 capsule by mo uth in [...] time Active Etonogestrel (Nexplanon) 68 mg implant (3 sources) Start: 05-20-2023 Etonogestrel ( Nexplanon) 68 mg implant Active 68 MG SUBDERMAL As Directed May 19, 2023 11:00pm Start: 05-20-2023 Etonogestrel ( Nexplanon) 68 mg implant Active 68 MG SUBDERMAL As Directed May 20, 2023 12:00am famotidine 40 mg oral tablet (20 sources) Histamine-2 Receptor Antagonist Start: 06-02-2024 take 1 tablet by mouth once daily Famotidine 40 mg tablet Active 40 MG PO Daily June 02, 2024 9:59am Start: 05-20-2023 End: 06-02-2024 take 1 tablet by mouth once daily famotidine (Pepcid) 40 MG tablet Take 40 mg by mouth Daily 05/19/2024 Active Start: 10-14-2018 take 1 tablet by elan twice daily Pepcid 20 mg Tab 20 mg = 1 tab(s), Oral, BID, # 60 tab(s), Refills(s) 0 Start Date: 10/14/18 Status: Ordered take 2 tablets by mo [facility] once daily famotidine (PEPCID) 20 MG tablet Take 2 tablets by mouth daily Active ferrous sulfate 325 mg oral tablet (20 sources) take 1 tablet by mouth at mealtime ferrous sulfate 325 (65 Fe) MG tablet Take 325 mg by mouth in the morning. Take with meals. Active fexofenadine hydrochloride 180 mg oral tablet (20 sources) Histamine-1 Receptor Antagonist Start: 02-25-20 23 take 1 tablet by mouth once daily Fexofenadine 180 mg tablet Active 180 MG PO Daily May 21, 2023 12:00am FLUoxetine 60 mg oral tablet (20 sources) Serotonin Reuptake Inhibitor Start: 10-15-19 24 take 1 tablet by mouth once daily Fluoxetine 60 mg tablet Active 60 MG PO Daily October 15, 2023 12:00am Start: 05-20-2023 End: 10-15-2023 take 1 capsule by mouth once daily Fluoxetine 40 mg capsule Discontinued 40 MG PO Daily May 20, 2023 12:00am October 15, 2023 9:28am Start: 01-19-2020 take 1 capsule by [facility] once daily FLUoxetine 40 mg Cap 40 mg = 1 cap(s), Oral, Daily, # 30 cap(s), Refills(s) 5, Pharmacy: [id number], 157, cm, 10/13/19 10:52:00 EDT, Height/Length Dosing, 100.7, kg, 10/13/19 10:52:00 EDT, Weight Dosing Start Date: 01/19/20 Status: Ordered take 3 capsules by m out once daily FLUoxetine (PROZAC) 20 MG capsule [...] Twice daily May 21, 2023 10:21am Start: 05-21-2023 take 300 mg by mouth twice eduardo ly Gabapentin Active 300 MG PO Twice daily May 21, 2023 10:21am Start: 10-14-2018 End: 05-21-2023 take 1 capsule by mouth twice daily Gabapentin 100 mg capsule Discontinued 100 MG PO Twice daily May 20, [...] / neomycin 3.5 mg/ml / polymyxin b 28786 unt/ml otic solution (1 source) Aminoglycoside Antibacterial, Polymyxin-class Antibacterial, Corticosteroid Start: 10-22-2021 End: 10-29-2021 [id number] isone (CORTISPORIN) [id number] 4 drops into the [...] tablet Active 200 MG PO Daily May 20, 2023 12:00am lansoprazole 30 mg delayed release oral capsule (6 sources) Proton Pump Inhibitor Start: 06-02-2024 take 1 capsule by mouth once daily Lansoprazole 30 mg capsule,delayed release(DR/EC) Active 30 MG PO Daily June 02, 2024 10:00am Start: 04-29-2024 End: 06-02-2024 take 1 capsule by mouth once daily lansoprazole (Prevacid) [address] capsule Take 30 mg by mouth Daily 05/19/2024 Active linaclotide 0.29 mg oral capsule (20 sources) Guanylate Cyclase-C Agonist Start: 05-21-2023 End: 06-02-2024 take 1 capsule by mouth once daily in the morning Linaclotide (Linzess) 290 mcg capsule Active 290 MCG PO Every morning June 02, 2024 9:58am lisdexamfetamine dimesylate 70 mg oral capsule (20 sources) Central Nervous System Stimulant Start: 02-27-2023 take 1 capsule by mouth once daily Lisdexamfetamine 70 mg capsule Active 70 MG PO Daily May 20, 2023 12:00am lurasidone hydrochloride 120 mg oral tablet (20 sources) Atypical Antipsychotic Start: 10-15-2023 take 1 tablet by mouth once daily Lurasidone 120 mg tablet Active 120 MG PO Daily October 15, 2023 12:00am Start: 05-20-2023 End: 10-15-2023 take 1 tablet by mouth once daily Lurasidone 80 mg tablet Discontinued 80 MG PO Daily May 20, 2023 12:00am October 15, 2023 9:30am Start: 01-19-2020 take 1 tablet by elan th once daily at mealtime Latuda 80 mg oral tablet 80 mg = 1 tab(s), Oral, Daily, with food, # 30 tab(s), Refills(s) 5, Pharmacy: [id number], 157, cm, [...] tablet Active 30 MG PO Daily May 21, 2023 12:00am Start: 05-21-2023 take 30 mg by mouth [...] succinate 25 mg extended release oral tablet (14 sources) beta-Adrenergic Theodore Start: 03-21-2024 take 0.5 [...] 10/14/18 Status: Ordered Multiple Vitamin (Tab-A-Karely) tablet (20 sources) Start: 12-26-2022 take 1 tablet by mouth in the morning Multiple Vitamin (Tab-A-Karely) tablet Take 1 tablet by mouth in the morning. 12/26/2022 Active Multivitamin preparation (20 sources) Multivitamin Active Multivitamin With Folic Acid (Daily-Karely (With Folic Acid)) 400 mcg tablet (3 sources) Start: 05-20-2023 Multivitamin With Folic Acid (Daily-Karely (With Folic Acid)) 400 mcg tablet Active TAB PO May 19, 2023 11:00pm Start: 05-20-2023 Multivitamin W ith Folic Acid (Daily-Karely (With Folic Acid)) 400 mcg tablet Active TAB PO May 20, 2023 12:00am mupirocin 0.02 mg/mg topical ointment (20 sources) RNA Synthetase Inhibitor Antibacterial Start: 03-16-2023 [...] mouth as needed for Pain Active nystatin 194497 unt/ml topical cream (17 sources) Polyene Antifungal Start: 01-20-2023 nystatin (Mycostatin) cream Apply topically if needed 01/20/2023 Active omeprazole 20 mg delayed release oral capsule (14 sources) Proton Pump Inhibitor take 2 capsules by mouth once daily omeprazole (PRILOSEC) 20 MG delayed release capsule Take 40 mg by mouth daily Active pantoprazole 40 mg delayed release oral tablet (4 sources) Proton Pump Inhibitor take 1 tablet by mouth before mealtime pantoprazole (ProtoNix) 40 MG EC tablet Take 40 mg by mouth in the morning. Take before meals. Do not crush, chew, or split.. Active pioglitazone 30 mg oral tablet (20 sources) Peroxisome Proliferator Receptor alpha Agonist, Peroxisome Proliferator Receptor gamma Agonist, Thiazolidinedione Start: 05-20-2023 End: 04-07-2024 take 1 tablet by mouth once daily Pioglitazone 30 mg tablet Active 30 MG PO Daily May 20, 2023 12:00am plecanatide 3 mg oral tablet (1 source) Start: 02-05-2023 take 1 tablet by mouth every twenty-four hours Trulance 3 MG 1 tablet Orally Once a day for 30 days Jan, Active polyethylene glycol 3350 [id number] mg / potassium chloride 2970 mg / sodium bicarbonate 6740 mg / sodium chloride 5860 mg / sodium sulfate 54710 mg powder for oral solution (2 sources) [...] Nausea, # 20 tab(s), Refills(s) 0, Pharmacy: [id number], 157, cm, 03/10/19 12:21:00 EST, Height/Length Measured, 100.7, kg, 03/10/19 12:21:00 EST, Weight Measured Start Date: 06/13/19 Status: Ordered rizatriptan 10 mg oral tablet (20 sources) Serotonin-1b and Serotonin-1d Receptor Agonist Start: 06-02-2022 Rizatriptan (Maxalt) 10 mg tablet Active 10 MG PO . NEEDED May 20, 2023 12:00am rosuvastatin 10 mg oral capsule (20 sources) HMG-CoA Reductase Inhibitor Start: 05-20-2023 take 1 tablet by mouth once daily Rosuvastatin 10 mg tablet Active 10 MG PO Daily May 20, [...] MG PO Twice daily as needed May 20, 2023 12:00am take 1 tablet by elan [...] mg by mouth Daily 01/21/2024 Active Tirzepatide (1 source) Start: 06-02-2024 Tirzepatide (Mounjaro) 15 mg/0.5 mL pen injector Active 15 MG SUBCUT every week June 02, 2024 12:00am Tirzepatide (Mounjaro) 2.5 MG/0.5ML solution auto-injector (10 sources) Start: 04-11-2024 End: 05-11-2024 Tirzepatide (Mounjaro) 2.5 MG/0.5ML solution auto-injector Indications: 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, 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 (CMS/HCC) Inject 2.5 mg under the skin every 7 (seven) days 2 mL 3 04/11/2024 05/11/2024 Active Start: 04-07-2024 End: 05-07-2024 Tirzepatide (Mounjaro) 2.5 M G/0.5ML solution auto-injector Indications: 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, 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 (CMS/HCC) Inject 2.5 mg under [...] 50 MG PO Daily as needed May 20, 2023 12:00am Ultram Active traZODone hydrochloride 50 mg oral tablet (20 sources) Serotonin Reuptake Inhibitor Start: 05-20-2023 End: 05-21-2023 take 1 tablet by mouth once daily at bedtime Trazodone 50 mg tablet Active 50 MG PO Daily at bedtime May 21, 2023 10:25am Trulance 3 MG (1 source) Start: 02-05-2023 [...] Dulaglutide (Trulicity) 3 mg/0.5 mL pen injector (3 sources) Start: 05-20-2023 End: 05-21-2023 Dulaglutide (Trulicity) 3 mg/0.5 mL pen injector Discontinued MG SUBCUT May 19, 2023 11:00pm May 21, 2023 9:20am Start: 05-20-2023 End: 05-21-2023 Dulaglutide (Trulicity) 3 mg /0.5 mL pen injector Discontinued MG SUBCUT May 20, 2023 12:00am May 21, 2023 10:20am Duloxetine 30 mg capsule,delayed release(DR/EC) (2 sources) Start: 05-21-2023 End: 10-15-2023 take 1 capsule by mouth once daily Duloxetine 30 mg capsule,delayed release(DR/EC) Discontinued 30 MG PO Daily May 21, 2023 12:00am October 15, 2023 9:27am Start: 05-21-2023 End: 10-15-2023 take 1 capsule [...] 04-20-2023 ketorolac (TORADOL) injectio n 30 mg 3 ml liraglutide 6 mg/ml pen injector (17 sources) GLP-1 Receptor Agonist Start: 05-21-2023 End: 06-02-2024 Liraglutide (Victoza 2-Ramon) 0.6 mg/0.1 mL (18 mg/3 mL) pen injector Discontinued MG SUBCUT May 21, 2023 12:00am June 02, 2024 9:36am Start: 05-19-2023 End: 04-07-2024 inject 1.8 mg by subcutaneous injection once daily Victoza 18 MG/3ML injection Inject 1.8 mg under the skin Daily 05/19/2023 04/07/2024 Discontinued (Formulary change) ondansetron 4 mg disintegrating oral tablet (1 [...] Subcutaneous Not-Taking Plecanatide (Trulance) 3 mg tablet (3 sources) Start: 05-21-2023 End: 05-21-2023 take 1 tablet by mouth once daily Plecanatide (Trulance) 3 mg tablet Discontinued 3 MG PO Daily May 20, 2023 11:00pm May 21, 2023 10:36am Start: 05-21-2023 End: 05-21-2023 take 1 tablet by mouth once daily Plecanatide (Trulance) 3 mg tablet Discontinued 3 MG PO Daily May 21, 2023 12:00am May 21, 2023 11:36am polyethylene glycol 3350 99221 mg powder for oral solution (7 sources) [...] Start: 05-21-2023 take 2 tablets by mo [facility] once daily at bedtime Tizanidine 4 mg tablet Active 8 MG PO Daily at bedtime May 21, 2023 10:24am Start: 05-21-2023 take 8 mg by mouth o nce daily at bedtime Tizanidine Active 8 MG PO Daily at bedtime May 21, 2023 10:24am Start: 05-20-2023 End: 05-21-2023 take 1 tablet by mouth once daily at bedtime Tizanidine 4 mg tablet Discontinued 4 MG PO Daily at bedtime May 20, 2023 12:00am May 21, 2023 10:34am Start: 10-14-2018 tizanidine 4 m g oral capsule Refills(s) 0 Start Date: 10/14/18 Status: Ordered take 1 tablet by elan every six hours as needed tiZANidine (ZANAFLEX) [...] stress disorder, unspecified] Onset: 06-16-2018 Chronic Asthma (20 sources) Asthma; Translations: [Unspecified asthma, uncomplicated] Onset: 03-10-2023 03-10-2023 Chronic Attention-deficit, conduct, and disruptive behavior disorders (20 sources) Attention deficit hyperactivity disorder; Translations: [Attention-deficit hyperactivity disorder, unspecified type] Onset: 04-27-2024 Resolved: 04-27-2024 05-20-2023 Chronic Attention-deficit, conduct, and disruptive behavior disorders (9 sources) Attention-deficit hyperactivity disorder, unspecified type; Translations: [Attention deficit disorder with hyperactivity] Chronic Calculus of urinary tract (10 sources) Personal history of urinary calculi; Translations: [...] 11-10-2017 03-10-2023 Chronic Disorders of lipid metabolism (19 sources) Hyperlipidemia; Translations: [Hyperlipidemia, unspecified] Onset: 02-11-2024 02-11-2024 Chronic Diverticulosis and diverticulitis (20 sources) Diverticulitis; Translations: [Diverticulitis of intestine, part [...] source) Nausea 11-26-2018 Episodic Nonspecific chest pain (6 sources) Chest pain, unspecified; Translations: [Chest pain] Onset: 10-05-2023 10-15-2023 Episodic Nutritional deficiencies (19 sources) Vitamin D deficiency; Translations: [Vitamin D deficiency, unspecified] Onset: 02-11-2024 02-11-2024 Chronic Osteoarthritis (20 sources) Osteoarthritis of joint of left ankle [...] disorder, unspecified] 04-18-2024 Episodic Other gastrointestinal disorders (3 sources) Irritable bowel syndrome; Translations: [Irritable bowel syndrome without diarrhea] 05-21-2023 Chronic Other gastrointestinal disorders (3 sources) Irritable bowel syndrome without diarrhea; Translations: [Irritable bowel syndrome] 05-21-2023 Chronic Other gastrointestinal disorders (1 source) Intestinal malabsorption, unspecified; Translations: [Intestinal malabsorption, unspecified] Onset: 12-21-2023 Chronic Other gastrointestinal disorders (12 sources) Constipation; Translations: [Constipation, unspecified] 03-02-2023 Episodic Other gastrointestinal disorders (8 sources) Constipation, unspecified; Translations: [Constipation, unspecified] Onset: 03-02-2023 Episodic Other injuries and conditions due to external causes (1 source) Closed injury of head; Translations: [Unspecified injury of head, initial encounter] 04-20-2023 Episodic Other liver diseases (20 sources) Steatosis of liver; Translations: [Fatty (change of) liver, not elsewhere classified] 05-20-2023 Chronic Other liver diseases (12 sources) Fatty (change of) liver, not elsewhere classified; Translations: [Other chronic nonalcoholic liver disease] Onset: 10-29-2021 Resolved: 10-29-2021 Chronic Other nervous system disorders (20 sources) Circadian rhythm sleep disorder of shift work type; Translations: [Circadian rhythm sleep disorder, shift work type] Onset: 04-27-2024 Resolved: 04-27-2024 05-20-2023 Chronic Other nervous system disorders (9 [...] Chronic Other nutritional; endocrine; and metabolic disorders (8 sources) Body mass index 30+ - obesity; Translations: [Body mass index (BMI) 36.0-36.9, adult] 06-05-2023 Chronic Other nutritional; endocrine; and metabolic disorders (2 sources) Severe obesity; Translations: [Class 2 severe obesity due to excess calories with serious comorbidity and body mass index (BMI) of 39.0 to 39.9 in adult ([facility])] 04-07-2024 Chronic Other nutritional; endocrine; and metabolic disorders (2 sources) Weight increased; Translations: [Abnormal weight gain] 04-07-2024 Episodic Other screening for suspected conditions (not mental disorders or infectious disease) (20 sources) Elevated liver enzymes level; Translations: [Abnormal results of liver function studies] Onset: 02-25-2022 Episodic Other upper respiratory disease (20 sources) Chronic rhinitis; Translations: [Chronic rhinitis] Onset: [...] pain; Translations: [Epigastric pain] Onset: 10-06-2023 Episodic Biliary tract disease (20 sources) Acute cholecystitis; Translations: [Acute cholecystitis] Onset: 09-15-2016 03-10-2023 Episodic Complications of surgical procedures or medical care (20 sources) Abscess; Translations: [Infection following a procedure, other surgical site, initial encounter] Onset: 09-28-2016 Resolved: 03-10-2023 03-10-2023 Episodic Deficiency and other anemia (20 sources) Anemia; Translations: [Anemia, unspecified] Onset: 03-10-2023 [...] Onset: 02-25-2022 Episodic Impulse control disorders, NEC (7 sources) Impulse control disorder; Translations: [Impulse disorder, unspecified] Onset: 04-27-2024 Resolved: 04-27-2024 Chronic Lymphadenitis (20 sources) Axillary lymphadenopathy; Translations: [Localized enlarged lymph nodes] Onset: 05-10-2020 03-10-2023 Episodic Mood disorders (8 sources) Mixed bipolar affective disorder, moderate; Translations: [Bipolar disorder, current episode mixed, moderate] Onset: 04-27-2024 Resolved: 04-27-2024 Chronic Nonmalignant breast conditions (20 sources) Large breast; Translations: [Hypertrophy of breast] Onset: 06-02-2023 Resolved: 02-18-2024 02-18-2024 Episodic Open wounds of extremities (20 sources) Open wound of toe without complication; Translations: [Unspecified open wound of unspecified toe(s) without damage to nail, initial encounter] Onset: 03-10-2023 Resolved: 03-10-2023 03-10-2023 Episodic Other connective tissue disease (1 source) Pain in left foot; Translations: [PAIN IN LEFT FOOT] Onset: 02-01-2022 Episodic Other connective tissue disease (20 sources) Pain in both feet; Translations: [Pain in right foot] Onset: 03-10-2023 03-10-2023 Episodic Other injuries and conditions due to [...] Onset: 01-29-2022 Episodic Other upper respiratory disease (20 sources) Epistaxis; Translations: [Epistaxis] Onset: 03-10-2023 03-10-2023 Episodic Residual codes; unclassified (20 sources) Flushing; Translations: [Flushing] Onset: 03-10-2023 Resolved: 03-10-2023 03-10-2023 Episodic Spondylosis; intervertebral disc disorders; other back problems (20 sources) Backache; Translations: [Neck pain] Onset: 12-02-2022 Resolved: 02-18-2024 03-10-2023 Episodic Sprains and strains (2 sources) Strain of neck muscle; Translations: [Strain of muscle, fascia and tendon at neck level, initial encounter] Onset: 04-20-2023 04-20-2023 Episodic Results Test Name Value Interpretation Reference Range Facility IGP,APTIMA HPV,AGE GDLNon AGE GDLN ACOG TESTING Note . [facility] Comment on above: TESTS RESULT FLAG UN ITS REF RANGE LAB Clinician Provided Cytology Information Source.............Cervix;Endocervix No. of containers..01 ThinPrep Vial Age Algo ACOG Rosana... FLAG LEGEND: L-Low Normal,H-High Normal,LL-Alert Low,HH-Alert High <-Panic Low,>-Panic High,A-Abnormal,AA-Critical Abnormal Performed at: 01 =G [address] [address] Kristin Matute MD, HPV APTIMA Negative Negative [facility] Comment on above: This nucleic acid am plification test detects fourteen high- risk HPV types (16,18,31,33,35,39,45,51,52,56,58,59,66,68) without differentiation. Performed at: =[address] [id number] [employer] Crewmember: Kristin Matute MD, Phone: [phone] Performed at: [address] [id number] [employer] Crewmember: Kristin Matute MD, Phone: [phone] IGP, APTIMA HPV, RFX 16/18,45 Note . [facility] Comment on above: TESTS RESULT FLAG UN ITS REF RANGE LAB DIAGNOSIS: 02 NEGATIVE FOR INTRAEPITHELIAL LESION OR MALIGNANCY. THIS SPECIMEN WAS RESCREENED PART OF OUR SALON PROFESSIONAL PROGRAM. Specimen adequacy: 02 Satisfactory for evaluation. Endocervical and/or squamous metaplastic cells (endocervical component) are present. Performed by: 02 Caro Tejada, Program Counselor (ASC) QC reviewed by: 02 Hannah Valadez, Program Counselor (ASC) . 02 Note: Note 02 The Pap smear is a screening test designed to aid in the detection of premalignant and malignant conditions of the uterine cervix. It is not a diagnostic procedure and should not be used as the sole means of detecting cervical cancer. Both false-positive and false-negative reports do occur. Test Methodology: Note 02 This liquid based ThinPrep(R) pap test was screened with the use of an image guided system. HPV Genotype Reflex Note 02 Criteria not met, HPV Genotype not performed. FLAG LEGEND: L-Low Normal,H-High Normal,LL-Alert Low,HH-Alert High <-Panic Low,>-Panic High,A-Abnormal,AA-Critical Abnormal Performed at: 02 WB [facility] [address] [place] [address] Kristin Matute MD, BRUSH-SPATULA CERVIX ENDOCERVIX [facility] MM TOMOSYNTHESIS SCREENING B Ion 05-27-2024 [place] [address] Mammography Report Signed Patient: KARMA WHITEHEAD MR#: [id number] : 1980 Acct:[id number] Age/Sex: 43 / F ADM Date: 05/27/24 Loc: MAMMO Attending Dr: Roel Garber D.O. Ordering Physician: Roel Garber D.O. Results: Date of Service: 05/27/24 Follow Up: Procedure(s): MM tomosynthesis screening BI Accession Number(s): [id number] cc: Roel Garber D.O.; Loreto Mcneal NP Patient Name: KARMA WHITEHEAD MR#: [id number] : 1980 Exam Date: 05/27/2024 Ordering Doctor: DR Roel Garber . RADIOLOGY REPORT PROCEDURE: MM TOMOSYNTHESIS SCREENING BI COMPARISON: MM DIAGNOSTIC MAMMO UNILAT RT, 03/25/2023. MG MAMM SCREEN 3D KVNG CAD, 03/16/2023. MM TOMOSYNTHESIS SCREENING BI, 11/07/2021. MM TOMOSYNTHESIS DIAGNOSTIC BI, 11/06/2020. INDICATIONS: Screening Calculator Name NCI Breast Cancer Risk Assessment Tool 5 Year Breast Cancer Risk Not Reported. Lifetime Breast Cancer Risk Not Reported. Personal Breast Cancer No Personal Ovarian Cancer No Treatments None Family Cancers None LOCATION: [facility] BREAST COMPOSITION: There are scattered areas of fibroglandular density. FINDINGS: RIGHT BREAST: No significant suspicious finding. LEFT BREAST: No significant suspicious finding. DIAGNOSTIC CATEGORY 1--NEGATIVE. RECOMMENDATIONS: ROUTINE MAMMOGRAM AND CLINICAL EVALUATION IN 12 MONTHS. PLEASE NOTE: A NORMAL MAMMOGRAM DOES NOT EXCLUDE THE POSSIBILITY OF BREAST CANCER. A CLINICALLY SUSPICIOUS PALPABLE LUMP SHOULD BE BIOPSIED. Dictated by: Mio Serra DO on 05/27/2024 at 16:38 Approved by: Mio Serra DO on 05/27/2024 at 16:48 Dictated By: Mio Serra D.O. Signed By: 05/27/24 1649 DD/ TD/TT: Care Analyst: [facility] Radiology, Radiologi MD rhianna - 05/27/2024 [facility] [place] [id number] Mammography Report Signed Patient: KARMA WHITEHEAD MR#: [id number] : 1980 Acct:[id number] Age/Sex: 43 / F ADM Date: 05/27/24 Loc: MAMMO Attending Dr: Roel Garber D.O. Ordering Physician: Roel Garber D.O. Results: Date of Service: 05/27/24 Follow Up: Procedure(s): MM tomosynthesis screening BI Accession Number(s): [id number] cc: Roel Garber D.O.; Loreto Mcneal NP Patient Name: KARMA WHITEHEAD MR#: [id number] : 1980 Exam Date: 05/27/2024 Ordering Doctor: DR Roel Garber . RADIOLOGY REPORT PROCEDURE: MM TOMOSYNTHESIS SCREENING BI COMPARISON: MM DIAGNOSTIC MAMMO UNILAT RT, 03/25/2023. MG MAMM SCREEN 3D KVNG CAD, 03/16/2023. MM TOMOSYNTHESIS SCREENING BI, 11/07/2021. MM TOMOSYNTHESIS DIAGNOSTIC BI, 11/06/2020. INDICATIONS: Screening Calculator Name NCI Breast Cancer Risk Assessment Tool 5 Year Breast Cancer Risk Not Reported. Lifetime Breast Cancer Risk Not Reported. Personal Breast Cancer No Personal Ovarian Cancer No Treatments None Family Cancers None LOCATION: [facility] BREAST COMPOSITION: There are scattered areas of fibroglandular density. FINDINGS: RIGHT BREAST: No significant suspicious finding. LEFT BREAST: No significant suspicious finding. DIAGNOSTIC CATEGORY 1--NEGATIVE. RECOMMENDATIONS: ROUTINE MAMMOGRAM AND CLINICAL EVALUATION IN 12 MONTHS. PLEASE NOTE: A NORMAL MAMMOGRAM DOES NOT EXCLUDE THE POSSIBILITY OF BREAST CANCER. A CLINICALLY SUSPICIOUS PALPABLE LUMP SHOULD BE BIOPSIED. Dictated by: Mio Serra DO on 05/27/2024 at 16:38 Approved by: Mio Serra DO on 05/27/2024 at 16:48 Dictated By: Mio Serra D.O. Signed By: 05/27/24 1649 DD/ 47 TD/TT: Care Analyst: [facility] Radiology Study observation (narrative) [facility] MM TOMOSYNTHESIS SCREENING B IOrdered By: Radiologist Radiology on 05-27-2024 [facility] Work Phone: Urinalysis macro (dipstick) panel (U)on 05-26-2024 Bilirubin, UA Negative Negative - 4(70) +++ mg/dL [facility] Blood, UA Negative Negative - 50 Donta/mcL [facility] Clarity, UA Clear [facility] Color, UA Yellow [facility] Glucose, UA Positive Negative - 1999(110) ++++ mg/dL [facility] Comment on above: 500 Interpretation and review of laboratory results Abnormal [facility] Ketones, UA Negative Negative - 160(16) ++++ mg/dL [facility] Leukocytes, UA Negative Negative - 500+++ Quique/mcL [facility] Nitrite, UA Negative Negative - Positive [facility] pH, UA 6 5 - 9 [facility] Protein, UA Negative Negative - 2000(20) ++++ mg/dL [facility] Spec Grav, UA 1.01 1 - 1.03 [facility] Urobilinogen, UA 0.2 0.2 - 12 mg/dL [facility] MLR HEMOGLOBIN A1Con 025 Glucose [Mass/Vol] 123 mg/dL [facility] HbA1c (Bld) [Mass fraction] 5.9 % 4.5 - 6.2 % [facility] Comment on above: ADA RECOMMENDED LIMI T 4.0 - 6.0 ADA THERAPEUTIC TARGET < 7.0 ACTION SUGGESTED > 7.0 [facility] Glucose (Bld) [Mass/Vol]on 0 04-07-2024 Glucose Blood, POC 115 mg/dL [facility] Laboratory - Hematology and Cell countson 04-07-2024 HbA1c (Bld) [Mass fraction] 5.8 % [facility] No Panel Informationon 04-07 Interpretation and review of laboratory results Normal [facility] Strep A Culture Onlyon 03-09 Strep A Culture Only No Group A Beta Streptococcus Isolated 2 Days PERFORMED BY: [place] [address] [place] [address] PATHOLOGIST GLUED WOOD TESTER DALIA SEARS M.D. Normal The Replaced By [facility] Comment on above: Performed By: #### C USTA #### [facility] [address] Streptococcus pyogenes cultu reOrdered By: Mio Marroquin on 03-09-2024 S. pyogenes Org specific cx Ql (Unsp spec) Streptococcus pyogenes culture [facility] CBC with Auto Differentialon 01-13-2024 Basophils (Bld) [#/Vol] 0.06 10*3/uL [facility] Basophils/100 WBC (Bld) 0 % 0 - 2 % [facility] Eosinophils (Bld) [#/Vol] 0.10 10*3/uL [facility] Eosinophils/100 WBC (Bld) 1 % 1 - 4 % [facility] Erythrocyte distribution width (RBC) [Ratio] 13.6 % 11.8 - 14.4 % [facility] Hematocrit (Bld) [Volume fraction] 43.3 % 36.3 - 47.1 % [facility] Hemoglobin (Bld) [Mass/Vol] 14.0 g/dL 11.9 - 15.1 g/dL [facility] Immature granulocytes (Bld) [#/Vol] 0.10 10*3/uL [facility] Immature granulocytes/100 WBC (Bld) 1 % High 0 [facility] Interpretation and review of laboratory results Abnormal [facility] Lymphocytes/100 WBC (Bld) 22 % Low 24 - 43 % [facility] Lymphocytes/100 WBC (Bld) 2.98 % [facility] MCH (RBC) [Entitic mass] 28.5 pg 25.2 - 33.5 pg [facility] MCHC (RBC) [Mass/Vol] 32.3 g/dL 28.4 - 34.8 g/dL [facility] MCV (RBC) [Entitic vol] 88.2 fL 82.6 - 102.9 fL [facility] Monocytes/100 WBC (Bld) 8 % 3 - 12 % [facility] Monocytes/100 WBC (Bld) 1.12 % [facility] Neutrophils/100 WBC (Bld) 68 % High 36 - 65 % [facility] Nucleated RBC/100 WBC (Bld) [Ratio] 0.0 % 0.0 per 100 WBC [facility] Platelet mean volume (Bld) [Entitic vol] 10.0 fL 8.1 - 13.5 fL [facility] Platelets (Bld) [#/Vol] 452 10*3/uL [facility] RBC (Bld) [#/Vol] 4.91 10*6/uL 3.95 - 5.11 m/uL [facility] Segmented neutrophils/100 WBC (Bld) 9.08 % High [facility] WBC other (Bld) [#/Vol] 13.4 High [facility] CBC with Diffon 01-13-2024 Abs. Basophil 0.06 k/uL Normal 0.00-0.20 [facility] Comment on above: Performed By: #### C DP, CP #### [facility] [address] [place] [address] [address] [id number] [employer] Crewmember: Domenica Velázquez MD Abs.Imm.Granulocyte 0.10 k/uL Normal 0.00-0.30 [facility] Comment on above: Performed By: #### C DP, CP #### [address] [place] [address] [employer] Crewmember: Domenica Velázquez MD Abs.Neutrophil (Seg) 9.08 k/uL High 1.50-8.10 [facility] Comment on above: Performed By: #### C DP, CP #### [facility] [address] [place] [address] Dr. [place], [facility]83 [employer] Crewmember: Domenica Velázquez MD Basophils/100 WBC (Bld) 0 % Normal 0-2 [facility] Comment on above: Performed By: #### C DP, CP #### [facility] [address] [place] [address] Dr. [place] [id number] [employer] Crewmember: Domenica Velázquez MD Eosinophils (Bld) [#/Vol] 0.10 10*3/uL Normal 0.00-0.44 [facility] Comment on above: Performed By: #### C DP, CP #### [facility] [address] [place], [place] [address] [employer] Crewmember: Domenica Velázquez MD Eosinophils/100 WBC (Bld) 1 % Normal 1-4 [facility] Comment on above: Performed By: #### C DP, CP #### [facility] [address] [place], [place] [address] [employer] Crewmember: Domenica Velázquez MD Erythrocyte distribution width (RBC) [Ratio] 13.6 % Normal 11.8-14.4 [facility] Comment on above: Performed By: #### C DP, CP #### [address] [place], [place] [address] [employer] Crewmember: Domenica Velázquez MD Hematocrit (Bld) [Volume fraction] 43.3 % Normal 36.3-47.1 [facility] Comment on above: Performed By: #### C DP, CP #### [address] [place], [place] [address] [employer] Crewmember: Domenica Velázquez MD Hemoglobin (Bld) [Mass/Vol] 14.0 g/dL Normal 11.9-15.1 [facility] Comment on above: Performed By: #### C DP, CP #### [address] [place], [place] [address] [employer] Crewmember: Domenica Velázquez MD Immature granulocytes/100 WBC (Bld) 1 % High 0 [facility] Comment on above: Performed By: #### C DP, CP #### [address] [place], [facility]83 [employer] Crewmember: Domenica Velázquez MD Lymphocytes (Bld) [#/Vol] 2.98 10*3/uL Normal 1.10-3.70 [facility] Comment on above: Performed By: #### C DP, CP #### [facility] [address] [place], [place] [phone] [employer] Crewmember: Domenica Velázquez MD Lymphocytes/100 WBC (Bld) 22 % Low 24-43 [facility] Comment on above: Performed By: #### C DP, CP #### [facility] [address] [place], [place] [id number] [employer] Crewmember: Domenica Velázquez MD MCH (RBC) [Entitic mass] 28.5 pg Normal 25.2-33.5 [facility] Comment on above: Performed By: #### C DP, CP #### [address] [place], [place] [id number] [employer] Crewmember: Domenica Velázquez MD MCHC (RBC) [Mass/Vol] 32.3 g/dL Normal 28.4-34.8 [facility] Comment on above: Performed By: #### C DP, CP #### [address] [place], [place] [id number] [employer] Crewmember: Domenica Velázquez MD MCV (RBC) [Entitic vol] 88.2 fL Normal 82.6-102.9 [facility] Comment on above: Performed By: #### C DP, CP #### [address] [place], [place] [id number] [employer] Crewmember: Domenica Velázquez MD Monocytes (Bld) [#/Vol] 1.12 10*3/uL Normal 0.10-1.20 [facility] Comment on above: Performed By: #### C DP, CP #### [address] [place], [place] [id number] [employer] Crewmember: Domenica Velázquez MD Monocytes/100 WBC (Bld) 8 % Normal 3-12 [facility] Comment on above: Performed By: #### C DP, CP #### [address] [place], [place] [id number] [employer] Crewmember: Domenica Velázquez MD Neutrophil (Seg) 68 % High 36-65 [facility] Comment on above: Performed By: #### C DP, CP #### [facility] [address] [place] [address] Dr. [place], [place] [phone] [employer] Crewmember: Domenica Velázquez MD NRBC Automated 0.0 per 100 WBC Normal 0.0 [facility] Comment on above: Performed By: #### C DP, CP #### [address] [place], [place] [id number] [employer] Crewmember: Domenica Velázquez MD Platelet mean volume (Bld) [Entitic vol] 10.0 fL Normal 8.1-13.5 [facility] Comment on above: Performed By: #### C DP, CP #### [address] [place], [place] [address]83 [employer] Crewmember: Domenica Velázquez MD Platelets (Bld) [#/Vol] 452 10*3/uL Normal 138-453 [facility] Comment on above: Performed By: #### C DP, CP #### [address] [place], [place] [id number] ([address] [employer] Crewmember: Domenica Velázquez MD RBC (Bld) [#/Vol] 4.91 10*6/uL Normal 3.95-5.11 [facility] Comment on above: Performed By: #### C DP, CP #### [address] [place], [place] [phone] ([address] [employer] Crewmember: Domenica Velázquez MD WBC (Bld) [#/Vol] 13.4 10*3/uL High 3.5-11.3 [facility] Comment on above: Performed By: #### C DP, CP #### [address] [place], [place] [id number] [employer] Crewmember: Domenica Velázquez MD CMPon 01-13-2024 Albumin [Mass/Vol] 4.4 g/dL 3.5 - 5.2 g/dL [facility] Albumin/Globulin [Mass ratio] 1.3 {ratio} 1.0 - 2.5 [facility] ALP [Catalytic activity/Vol] 87 U/L 35 - 104 U/L [facility] ALT [Catalytic activity/Vol] 25 U/L 10 - 35 U/L [facility] Anion gap [Moles/Vol] 11 mmol/L 9 - 16 mmol/L [facility] AST [Catalytic activity/Vol] 17 U/L 10 - 35 U/L [facility] Bilirubin [Mass/Vol] mg/dL 0.00 - 1.20 mg/dL [facility] Calcium [Mass/Vol] 9.9 mg/dL 8.6 - 10. 4 mg/dL [facility] Chloride [Moles/Vol] 101 mmol/L 98 - 10 7 mmol/L [facility] CO2 [Moles/Vol] 25 mmol/L 20 - 31 mmol/L [facility] Creatinine [Mass/Vol] 0.7 mg/dL 0.50 - 0.90 mg/dL [facility] Est, Glom Filt Rate - PINF [facility] Comment on above: These results are not [...] mg/dL High 74 - 99 mg/dL [facility] Interpretation and review of laboratory results Abnormal [facility] Potassium [Moles/Vol] 4.2 mmol/L 3.7 - 5.3 mmol/L [facility] Protein [Mass/Vol] 7.8 g/dL 6.6 - 8.7 g/dL [facility] Sodium [Moles/Vol] 137 mmol/L 136 - 145 mmol/L [facility] Urea nitrogen [Mass/Vol] 24 mg/dL High 6 - 20 mg/dL [facility] Urea nitrogen/Creatinine [Mass ratio] 34 mg/mg High 9 - 20 [facility] Comp Metabolic Profon 2023 Albumin [Mass/Vol] 4.4 g/dL Normal 3.5-5.2 [facility] Comment on above: Performed By: #### C DP, CP #### [facility] [address] [place], [place] [id number] [employer] Crewmember: Domenica Velázquez MD Albumin/Glob Ratio 1.3 Normal 1.0-2.5 [facility] Comment on above: Performed By: #### C DP, CP #### [facility] [address] [place], [place] [id number] [employer] Crewmember: Domenica Velázquez MD Alkaline Phos 87 U/L Normal 35-104 [facility] Comment on above: Performed By: #### C DP, CP #### [facility] [address] [place] [address] [employer] Crewmember: Domenica Velázquez MD ALT [Catalytic activity/Vol] 25 U/L Normal 10-35 [facility] Comment on above: Performed By: #### C DP, CP #### [facility] [address] [place] [address] [employer] Crewmember: Domenica Velázquez MD Anion gap [Moles/Vol] 11 mmol/L Normal 9-16 [facility] Comment on above: Performed By: #### C DP, CP #### [facility] [address] [place], [place] 8[address]83 [employer] Crewmember: Domenica Velázquez MD AST [Catalytic activity/Vol] 17 U/L Normal 10-35 [facility] Comment on above: Performed By: #### C DP, CP #### [facility] [address] [place], [place] [id number] [employer] Crewmember: Domenica Velázquez MD Bilirubin [Mass/Vol] mg/dL Normal 0.00-1.20 [facility] Comment on above: Performed By: #### C DP, CP #### [facility] [address] [place], [place] [phone] [employer] Crewmember: Domenica Velázquez MD BUN/CRE Ratio 34 High 9-20 [facility] Comment on above: Performed By: #### C DP, CP #### [facility] [address] [place], [place] 1895783 [employer] Crewmember: Domeinca Velázquez MD Calcium [Mass/Vol] 9.9 mg/dL Normal 8.6-10.4 [facility] Comment on above: Performed By: #### C DP, CP #### [facility] [address] [place], [place] 8[address]83 [employer] Crewmember: Domenica Velázquez MD Chloride [Moles/Vol] 101 mmol/L Normal 98-107 [facility] Comment on above: Performed By: #### C DP, CP #### [facility] [address] [place], [place] [phone] [employer] Crewmember: Domenica Velázquez MD CO2 [Moles/Vol] 25 mmol/L Normal 20-31 [facility] Comment on above: Performed By: #### C DP, CP #### [facility] [address] [place], [place] [address]83 [employer] Crewmember: Domenica Velázquez MD Creatinine [Mass/Vol] 0.7 mg/dL Normal 0.50-0.90 [facility] Comment on above: Performed By: #### C DP, CP #### [facility] [address] [place] [address] [employer] Crewmember: Domenica Velázquez MD GFR/1.73 sq M.predicted among non-blacks MDRD (S/P/Bld) [Vol rate/Area] mL/min/{1.73_m2} Normal >60 [facility] Comment on above: Result Comment: [...] C DP, CP #### [facility] [address] [place], [place] 1317683 [employer] Crewmember: Domenica Velázquez MD Glucose [Mass/Vol] 112 mg/dL High 74-99 [facility] Comment on above: Performed By: #### C DP, CP #### [address] [place], [place] 4391483 [employer] Crewmember: Domenica Velázquez MD Potassium [Moles/Vol] 4.2 mmol/L Normal 3.7-5.3 [facility] Comment on above: Performed By: #### C DP, CP #### [address] [place], [place] 3528483 [employer] Crewmember: Domenica Velázquez MD Protein [Mass/Vol] 7.8 g/dL Normal 6.6-8.7 [facility] Comment on above: Performed By: #### C DP, CP #### [facility] [address] [place] [address] [place] [address] [employer] Crewmember: Domenica Velázquez MD Sodium [Moles/Vol] 137 mmol/L Normal 136-145 [facility] Comment on above: Performed By: #### C DP, CP #### [address] [place], [place] 8165383 [employer] Crewmember: Domenica Velázquez MD Urea nitrogen [Mass/Vol] 24 mg/dL High 6-20 [facility] Comment on above: Performed By: #### C DP, CP #### [address] [place] [address] [employer] Crewmember: Domenica Velázquez MD Microscopic Urinalysison Bacteria LM Ql (Urine sed) 1+ Abnormal None [facility] Epithelial cells LM.HPF (Urine sed) [#/Area] 0 TO 2 [facility] Interpretation and review of laboratory results Abnormal [facility] Mucus Ql (Urine sed) TRACE Abnormal None [facility] RBC LM.HPF (Urine sed) [#/Area] 0 TO 2 [facility] WBC LM.HPF (Urine sed) [#/Area] None [facility] TSHon 01-13-2024 TSH Qn 1.57 m[IU]/L [facility] Thyroid Stim. Horm.on 2023 Thyroid Stim. Horm. 1.57 uIU/mL Normal 0.27-4.20 [facility] Comment on above: Performed By: #### T SH #### [facility] [address] [place] [address] [employer] Crewmember: Domenica Velázquez MD UA w/Reflex Cultureon 2023 Bilirubin, SemiQt,Ur Negative Normal NEG [facility] Comment on above: Performed By: #### U MICAO, UAX #### [facility] [address] [place] [address] [place] [address] [employer] Crewmember: Domenica Velázquez MD Blood, Urine Negative Normal NEG [facility] Comment on above: Performed By: #### U MICAO, UAX #### [facility] [address] [place] [address] [employer] Crewmember: Domenica Velázquez MD Clarity (U) Clear Normal CLEAR [facility] Comment on above: Performed By: #### U MICAO, UAX #### [facility] [address] [place] [address] [employer] Crewmember: Domenica Velázquez MD Color (U) Yellow Normal YEL [facility] Comment on above: Performed By: #### U MICAO, UAX #### [facility] [address] [place], [place] [address]83 [employer] Crewmember: Domenica Velázquez MD Glucose Ql (U) 3+ mg/dL Abnormal NEG [facility] Comment on above: Performed By: #### U MICAO, UAX #### [facility] [address] [place] [address] [place] [place], [place] [id number] [employer] Crewmember: Domenica Velázquez MD Ketones Ql (U) Negative Normal NEG [facility] Comment on above: Performed By: #### U MICAO, UAX #### [facility] [address] [place] [address] [place] [address] [employer] Crewmember: Domenica Velázquez MD Leukocyte esterase Test strip Ql (U) Negative Normal NEG [facility] Comment on above: Performed By: #### U MICAO, UAX #### [facility] [address] [place] [address] [place] [place], [place] [id number] [employer] Crewmember: Domenica Velázquez MD Nitrite,Ur Negative Normal [facility] Comment on above: Performed By: #### U MICAO, UAX #### [address] [place], [place] [address]83 [employer] Crewmember: Domenica Velázquez MD PH,Ur 6.0 Normal 5.0-9.0 [facility] Comment on above: Performed By: #### U MICAO, UAX #### [facility] [address] [place] [address] [place] [address] [employer] Crewmember: Domenica Velázquez MD Protein Ql (U) Negative Normal NEG [facility] in [facility] Comment on above: Performed By: #### U MICAO, UAX #### [facility] [address] [place] [address] [place] [place], [place] [id number] [employer] Crewmember: Domenica Velázquez MD Spec. [place],Ur >1.030 High 1.010-1.02 0 [facility] Comment on above: Performed By: #### U DULCE UAX #### [facility] [address] [place] [address] [employer] Crewmember: Domenica Velázquez MD Urobilinogen,Ur Normal Normal 0.0-1.0 [facility] Comment on above: Performed By: #### U DULCE UAX #### [facility] [address] [place] [address] [employer] Crewmember: Domenica Velázquez MD Urinalysis with Reflex to Cu ltureon 01-13-2024 Bilirubin Ql (U) Negative NEGATIVE [facility] Clarity (U) Clear Clear [facility] Color (U) Yellow Yellow [facility] Glucose Test strip (U) [Mass/Vol] 3+ Abnormal NEGATIVE mg/dL [facility] Hemoglobin Auto test strip Ql (U) Negative NEGATIVE [facility] Interpretation and review of laboratory results Abnormal [facility] Ketones (U) [Mass/Vol] Negative NEGATIVE mg/dL [facility] Leukocyte esterase Test strip Ql (U) Negative NEGATIVE [facility] Nitrite Ql (U) Negative NEGATIVE [facility] pH (U) 6.0 [pH] 5.0 - 9.0 [facility] Protein (U) [Mass/Vol] Negative NEGATIVE mg/dL [facility] Specific gravity (U) [Rel density] High 1.010 - 1.020 [facility] Urobilinogen Qn (U) Normal 0.0 - 1. 0 EU/dL [facility] Urinalysis,Microon 4 Bacteria 1+ Abnormal NONE [facility] Comment on above: Performed By: #### U DULCE UAX #### [facility] [address] [place] [address] [employer] Crewmember: Domenica Velázquez MD Epithelial cells LM Ql (Urine sed) 0 TO 2 Normal 0-25 [facility] Comment on above: Performed By: #### U MICAO, UAX #### [facility] [address] [place] [address] [employer] Crewmember: Domenica Velázquez MD Mucus Strands TRACE Abnormal NONE [facility] Comment on above: Performed By: #### U MICAO, UAX #### [facility] [address] [place] [address] [employer] Crewmember: Domenica Velázquez MD Urine RBC's 0 TO 2 Normal 0-2 [facility] Comment on above: Performed By: #### U MICAO, UAX #### [facility] [address] [place] [address] [employer] Crewmember: Domenica Velázquez MD Urine WBC's None Normal 0-5 [facility] Comment on above: Performed By: #### U MICAO, UAX #### [facility] [address] [place] [address] [employer] Crewmember: Domenica Velázquez MD BASIC METABOLIC PANLon 12-20 Anion gap [Moles/Vol] 10 mmol/L Normal 5-15 [facility] Comment on above: Performed By: #### C BCA, BMP, FEPR, 2276-4 #### [facility] ([id number]) [address], [address] [place] [address] Calcium [Mass/Vol] 8.9 mg/dL Normal 8.5-10.5 [facility] Comment on above: Performed By: #### C BCA, BMP, FEPR, 2276-4 #### [facility] ([id number]) [address], [address] [place] [address] Chloride [Moles/Vol] 106 mmol/L Normal 98-109 [facility] Comment on above: Performed By: #### C BCA, BMP, FEPR, 2276-4 #### [facility] ([id number]) [address], [address] [place] [address] CO2 [Moles/Vol] 22 mmol/L Normal 22-32 [facility] Comment on above: Performed By: #### C BCA, BMP, FEPR, 2275-4 #### [facility] ([id number]) [address], [address] [place] [address] Creatinine [Mass/Vol] 0.70 mg/dL Normal 0.40-1.00 [facility] Comment on above: Result Comment: METH OD TRACEABLE TO IDMS STANDARD Performed By: #### C BCA, BMP, FEPR, 2275-4 #### [facility] ([id number]) [address], [address] [place] [address] eGFR (CKD-EPI) NON-RACE DEPENDENT >90 Normal >59 [facility] Comment on above: Result Comment: Reported eGFR is based on the CKD-EPI 2020 equation that does not use a race coefficient. Performed By: #### C BCA, BMP, FEPR, 2275-4 #### [facility] ([id number]) [address] [address] [place] [address] Glucose [Mass/Vol] 89 mg/dL Normal 65-99 [facility] Comment on above: Performed By: #### C BCA, BMP, FEPR, 2275-4 #### [facility] ([id number]) [address] [address] [place] [address] Potassium [Moles/Vol] 4.2 mmol/L Normal 3.5-5.0 [facility] Comment on above: Performed By: #### C BCA, BMP, FEPR, 2275-4 #### [facility] ([id number]) [address] [address] [place] [address] Sodium [Moles/Vol] 138 mmol/L Normal 134-146 [facility] Comment on above: Performed By: #### C BCA, BMP, FEPR, 6-4 #### [facility] ([id number]) [address], [address] [place] [address] Urea nitrogen [Mass/Vol] 18 mg/dL Normal 5-23 [facility] Comment on above: Performed By: #### C BCA, BMP, FEPR, 4 #### [facility] ([id number]) [address], [facility] [address] [place] [address] CBC AND AUTO DIFFon 10--20 24 ABSOLUTE BASOPHIL 0.0 X10E9/L Normal 0.0-0.2 [facility] Comment on above: Performed By: #### C BCA, BMP, FEPR, 4 #### [facility] ([id number]) [address], [facility] [address] [place] [address] ABSOLUTE NEUTROPHIL 5.7 X10E9/L Normal 1.5-6.6 [facility] Comment on above: Performed By: #### C BCA, BMP, FEPR, 2275-06 #### [facility] ([id number]) [address] [address] [place] [address] Basophils/100 WBC (Bld) 0.4 % Normal [facility] Comment on above: Performed By: #### C BCA, BMP, FEPR, 2275-06 #### [facility] ([id number]) [address] [address] [place] [address] Eosinophils (Bld) [#/Vol] 0.1 10*3/uL Normal 0.0-0.4 [facility] Comment on above: Performed By: #### C BCA, BMP, FEPR, 2275-06 #### [facility] ([id number]) [address] [address] [place] [address] Eosinophils/100 WBC (Bld) 1.2 % Normal [facility] Comment on above: Performed By: #### C BCA, BMP, FEPR, 2275-06 #### [facility] ([id number]) [address] [address] [place] [address] Erythrocyte distribution width (RBC) [Ratio] 14.4 % Normal 11.5-15.0 [facility] Comment on above: Performed By: #### C BCA, BMP, FEPR, 2275-06 #### [facility] ([id number]) [address] [address] [place] [address] Hematocrit (Bld) [Volume fraction] 37.4 % Normal 35-47 [facility] Comment on above: Performed By: #### C BCA, BMP, FEPR, 2275-06 #### [facility] ([id number]) [address] [address] [place] [address] Hemoglobin (Bld) [Mass/Vol] 12.4 g/dL Normal 11.7-15.5 [facility] Comment on above: Performed By: #### C BCA, BMP, FEPR, 2275-06 #### [facility] ([id number]) [address] [address] [place] [address] Lymphocytes (Bld) [#/Vol] 2.4 10*3/uL Normal 1.0-3.5 [facility] Comment on above: Performed By: #### C BCA, BMP, FEPR, 2275-06 #### [facility] ([id number]) [address] [address] [place] [address] Lymphocytes/100 WBC (Bld) 28.1 % Normal [facility] Comment on above: Performed By: #### C BCA, BMP, FEPR, 2275-06 #### [facility] ([id number]) [address] [address] [place] [address] MCH (RBC) [Entitic mass] 28.8 pg Normal 27-34 [facility] Comment on above: Performed By: #### C BCA, BMP, FEPR, 2275-06 #### [facility] ([id number]) [address], [address] [place] [address] MCHC (RBC) [Mass/Vol] 33.1 g/dL Normal 32-36 [facility] Comment on above: Performed By: #### C BCA, BMP, FEPR, 2275- #### [facility] ([id number]) [address], [address] [place] [address] MCV (RBC) [Entitic vol] 87 fL Normal 80-100 [facility] Comment on above: Performed By: #### C BCA, BMP, FEPR, 2275- #### [facility] ([id number]) [address], [address] [place] [address] Monocytes (Bld) [#/Vol] 0.3 10*3/uL Normal 0-0.9 [facility] Comment on above: Performed By: #### C BCA, BMP, FEPR, 2275-06 #### [facility] ([id number]) [address], [address] [place] [address] Monocytes/100 WBC (Bld) 3.0 % Normal [facility] Comment on above: Performed By: #### C BCA, BMP, FEPR, 2275- #### [facility] ([id number]) [address], [address] [place] [address] Neutrophils/100 WBC (Bld) 67.3 % Normal [facility] Comment on above: Performed By: #### C BCA, BMP, FEPR, 2275-06 #### [facility] ([id number]) [address], [address] [place] [address] Platelet mean volume (Bld) [Entitic vol] 8.8 fL Normal 7-12 [facility] Comment on above: Performed By: #### C BCA, BMP, FEPR, 2275- #### [facility] ([id number]) [address], [address] [place] [address] Platelets (Bld) [#/Vol] 325 10*3/uL Normal 150-450 [facility] Comment on above: Performed By: #### C BCA, BMP, FEPR, 2275-4 #### [facility] ([id number]) [address], [facility] [address] [place] [address] RBC COUNT 4.31 X10E12/L Normal 3.80-5.20 [facility] Comment on above: Performed By: #### C BCA, BMP, FEPR, 2275-4 #### [facility] ([id number]) [address], [facility] [address] [place] [address] WBC (Bld) [#/Vol] 8.4 10*3/uL Normal 4.0-11.0 [facility] Comment on above: Performed By: #### C BCA, BMP, FEPR, 2275-4 #### [facility] ([id number]) [address] [address] [place] [address] FERRITINon 12-21-2023 Ferritin [Mass/Vol] 195 ng/mL Normal 11-307 [facility] Comment on above: Performed By: #### C BCA, CMP, 12199-4, TSHR #### [facility] ([id number]) [address] [address] [place] [address] IRON PROFILEon 12-21-2023 Iron [Mass/Vol] 53 ug/dL Normal 50-170 [facility] Comment on above: Performed By: #### C BCA, BMP, FEPR, 2275-4 #### [facility] ([id number]) [address] [address] [place] [address] IRON BINDING 374 ug/dL Normal 250-425 [facility] Comment on above: Performed By: #### C BCA, BMP, FEPR, 2275-4 #### [facility] ([id number]) [address] [place] [address] IRON SATURATION 14 % SATURATION Low 15-50 [facility] Comment on above: Performed By: #### C BCA, BMP, FEPR, 2276-4 #### [facility] ([id number]) [address] [place] [address] CT ABDOMEN PELVIS W IV CONTR Dar [...] significant stool or gas noted. Evidence of [id number] diverticulosis of proximal sigmoid colon and descending [...] Zoë Nicole MD 10/07/23 Final result Normal [facility] Comp Metabolic Profon 2023 Albumin [Mass/Vol] 4.1 g/dL Normal 3.5-5.2 [facility] Comment on above: Performed By: #### C DEBORAH ROY CP, LIP ####[facility] [place] [address] lab Director: Domenica Velázquez MD Albumin/Glob Ratio 1.4 Normal 1.0-2.5 [facility] Comment on above: Performed By: #### C DEBORAH ROY CP, LIP ####[facility] , [place] 9249383 Lab Director: Domenica Velázquez MD Alkaline Phos 85 U/L Normal 35-104 [facility] Comment on above: Performed By: #### C DP, TROPI, CP, LIP ####[address] , [place] 5298[address] Lab Director: Domenica Velázquez MD ALT [Catalytic activity/Vol] 12 U/L Normal 5-33 [facility] Comment on above: Performed By: #### C DP, TROPI, CP, LIP ####[address] [place] [address] Lab Director: Domenica Velázquez MD Anion gap [Moles/Vol] 11 mmol/L Normal 9-17 [facility] Comment on above: Performed By: #### C DP, TROPI, CP, LIP ####[address] [place] [address] Lab Director: Domenica Velázquez MD AST [Catalytic activity/Vol] 14 U/L Normal <32 [facility] Comment on above: Performed By: #### C DP, TROPI, CP, LIP ####[address] [place] [address] Lab Director: Domenica Velázquez MD Bilirubin [Mass/Vol] 0.2 mg/dL Low 0.3-1.2 [facility] Comment on above: Performed By: #### C DP, TROPI, CP, LIP ####[address] , [place] 1439[address] Lab Director: Domenica Velázquez MD BUN/CRE Ratio 30 High 9-20 [facility] Comment on above: Performed By: #### C DP, TROPI, CP, LIP ####[address] , [place] 2258883 Lab Director: Domenica Velázquez MD Calcium [Mass/Vol] 8.8 mg/dL Normal 8.6-10.4 [facility] Comment on above: Performed By: #### C DP TROPI, CP, LIP ####[address] , [place] 077[address]83 Lab Director: Domenica Velázquez MD Chloride [Moles/Vol] 103 mmol/L Normal 98-107 [facility] Comment on above: Performed By: #### C DP, TROPI, CP, LIP ####[facility] , [place] 6987[address] Lab Director: Domenica Velázquez MD CO2 [Moles/Vol] 25 mmol/L Normal 20-31 [facility] Comment on above: Performed By: #### C DP TROPI CP, LIP ####[address] , [place] 7327483 Lab Director: Domenica Velázquez MD Creatinine [Mass/Vol] 0.6 mg/dL Normal 0.5-0.9 [facility] Comment on above: Performed By: #### C MANUELA TROPI CP, LIP ####[address] , [place] 1581383 Lab Director: Domenica Velázquez MD GFR/1.73 sq M.predicted among non-blacks MDRD (S/P/Bld) [Vol rate/Area] mL/min/{1.73_m2} Normal >60 [facility] Comment on above: Result Comment: [...] By: #### C DP, TROPI, CP, LIP ####[address] [place] [address] Lab Director: Domenica Velázquez MD Glucose [Mass/Vol] 92 mg/dL Normal 70-99 [facility] Comment on above: Performed By: #### C DP, TROPI, CP, LIP ####[address] [place] [address] Lab Director: Domenica Velázquez MD Potassium [Moles/Vol] 3.6 mmol/L Low 3.7-5.3 [facility] Comment on above: Performed By: #### C DP, TROPI, CP, LIP ####[address] [place] [address] Lab Director: Domenica Velázquez MD Protein [Mass/Vol] 7.0 g/dL Normal 6.4-8.3 [facility] Comment on above: Performed By: #### C DP, TROPI, CP, LIP ####[address] , [place] [phone] Director: Domenica Velázquez MD Sodium [Moles/Vol] 139 mmol/L Normal 135-144 [facility] Comment on above: Performed By: #### C DP, TROPI, CP, LIP ####[address] [place] [address] Lab Director: Domneica Velázquez MD Urea nitrogen [Mass/Vol] 18 mg/dL Normal 6-20 [facility] Comment on above: Performed By: #### C DP, TROPI, CP, LIP ####[address] [place] [address] Lab Director: Domenica Velázquez MD Lipaseon 10-07-2023 Lipase [Catalytic activity/Vol] 28 U/L Normal 13-60 [facility] Comment on above: Performed By: #### C DP, TROPI, CP, LIP ####[address] [place] [phone] Director: Domenica Velázquez MD Troponinon 10-07-2023 Troponin, High Sens <6 Normal 0-14 [facility] Comment on above: Result Comment: High Sensitivity Troponin values cannot be compared with other Troponin methodologies. Performed By: #### C DP, TROPI, CP, LIP ####[address] , [phone] Director: Domenica Velázquez MD CBC with Diffon 10-06-2023 Abs. Basophil 0.03 k/uL Normal 0.00-0.20 [facility] Comment on above: Performed By: #### C DP, TROPI, CP, LIP ####[address] , [place] [address])[phone] Director: Domenica Velázquez MD Abs.Imm.Granulocyte 0.03 k/uL Normal 0.00-0.30 [facility] Comment on above: Performed By: #### C DP, TROPI, CP, LIP ####[address] , [place] [address])[phone] Director: Domenica Velázquez MD Abs.Neutrophil (Seg) 6.50 k/uL Normal 1.50-8.10 [facility] Comment on above: Performed By: #### C DP, TROPI, CP, LIP ####[address] , [place] [address])[phone] Director: Domenica Velázquez MD Basophils/100 WBC (Bld) 0 % Normal 0-2 [facility] Comment on above: Performed By: #### C DP, TROPI, CP, LIP ####[address] [place] [id number])[phone] Director: Domenica Velázquez MD Eosinophils (Bld) [#/Vol] 0.08 10*3/uL Normal 0.00-0.44 [facility] Comment on above: Performed By: #### C DP, TROPI, CP, LIP ####[address] , [place] [address])[phone] Director: Domenica Velázquez MD Eosinophils/100 WBC (Bld) 1 % Normal 1-4 [facility] Comment on above: Performed By: #### C DP, TROPI, CP, LIP ####[address] , [facility]83[facility])[phone] Director: Domenica Velázquez MD Erythrocyte distribution width (RBC) [Ratio] 13.5 % Normal 11.8-14.4 [facility] Comment on above: Performed By: #### C DP, TROPI, CP, LIP ####[address] , [facility]83[facility])[phone] Director: Domenica Velázquez MD Hematocrit (Bld) [Volume fraction] 40.1 % Normal 36.3-47.1 [facility] Comment on above: Performed By: #### C DP, TROPI, CP, LIP ####[address] , [facility]83[facility])[phone] Director: Domenica Velázquez MD Hemoglobin (Bld) [Mass/Vol] 13.4 g/dL Normal 11.9-15.1 [facility] Comment on above: Performed By: #### C DP, TROPI, CP, LIP ####[address] , [place] [address])[phone] Director: Domenica Velázquez MD Immature granulocytes/100 WBC (Bld) 0 % Normal 0 [facility] Comment on above: Performed By: #### C DP, TROPI, CP, LIP ####[address] [place] [address] Lab Director: Domenica Velázquez MD Lymphocytes (Bld) [#/Vol] 2.41 10*3/uL Normal 1.10-3.70 [facility] Comment on above: Performed By: #### C DP, TROPI, CP, LIP ####[address] , [place] [address])[phone] Director: Domenica Velázquez MD Lymphocytes/100 WBC (Bld) 25 % Normal 24-43 [facility] Comment on above: Performed By: #### C DP, TROPI, CP, LIP ####[address] , [facility]83[facility])[phone] Director: Domenica Velázquez MD MCH (RBC) [Entitic mass] 28.6 pg Normal 25.2-33.5 [facility] Comment on above: Performed By: #### C DP, TROPI, CP, LIP ####[address] , [facility]83[facility])[phone] Director: Domenica Velázquez MD MCHC (RBC) [Mass/Vol] 33.4 g/dL Normal 28.4-34.8 [facility] Comment on above: Performed By: #### C DP, TROPI, CP, LIP ####[address] , [facility]83[facility])[phone] Director: Domenica Velázquez MD MCV (RBC) [Entitic vol] 85.7 fL Normal 82.6-102.9 [facility] Comment on above: Performed By: #### C DP, TROPI, CP, LIP ####[address] , [facility]83[facility])[phone] Director: Domenica Velázquez MD Monocytes (Bld) [#/Vol] 0.69 10*3/uL Normal 0.10-1.20 [facility] Comment on above: Performed By: #### C DP, TROPI, CP, LIP ####[address] , [place] [address] Lab Director: Domenica Velázquez MD Monocytes/100 WBC (Bld) 7 % Normal 3-12 [facility] Comment on above: Performed By: #### C DP, TROPI, CP, LIP ####[address] [place] [address] Lab Director: Domenica Velázquez MD Neutrophil (Seg) 67 % High 36-65 [facility] Comment on above: Performed By: #### C DP, TROPI, CP, LIP ####[address] , [facility]83 Lab Director: Domenica Velázquez MD NRBC Automated 0.0 per 100 WBC Normal 0.0 [facility] Comment on above: Performed By: #### C DP, TROPI, CP, LIP ####[address] , [facility]83 Lab Director: Domenica Velázquez MD Platelet mean volume (Bld) [Entitic vol] 10.5 fL Normal 8.1-13.5 [facility] Comment on above: Performed By: #### C DP, TROPI, CP, LIP ####[address] , [facility]83[facility])[phone] Director: Domenica Velázquez MD Platelets (Bld) [#/Vol] 292 10*3/uL Normal 138-453 [facility] Comment on above: Performed By: #### C DP, TROPI, CP, LIP ####[address] , [place] [address])[phone] Director: Domenica Velázquez MD RBC (Bld) [#/Vol] 4.68 10*6/uL Normal 3.95-5.11 [facility] Comment on above: Performed By: #### C DP, TROPI, CP, LIP ####[address] , [place] [id number] Lab Director: Domenica Velázquez MD WBC (Bld) [#/Vol] 9.7 10*3/uL Normal 3.5-11.3 [facility] Comment on above: Performed By: #### C DP, TROPI, CP, LIP ####[facility] , [place] [id number] Lab Director: Domenica Velázquez MD Basic Metabolic Profon 10-04 Anion gap [Moles/Vol] 10 mmol/L Normal 9-17 [facility] Comment on above: Performed By: #### D BASIA, BMP, CDP, TROPI #### [facility] [address] [place] [address] [employer] Crewmember: Domenica Velázquez MD BUN/CRE Ratio 23 High 9-20 [facility] Comment on above: Performed By: #### D BASIA, BMP, CDP, TROPI #### [facility] [address] [place], [place] [id number] [employer] Crewmember: Domenica Velázquez MD Calcium [Mass/Vol] 8.9 mg/dL Normal 8.6-10.4 [facility] Comment on above: Performed By: #### D BASIA, BMP, CDP, TROPI #### [facility] [address] [place], [place] [address] [employer] Crewmember: Domenica Velázquez MD Chloride [Moles/Vol] 105 mmol/L Normal 98-107 [facility] Comment on above: Performed By: #### D BASIA, BMP, CDP, TROPI #### [facility] [address] [place], [place] [address] [employer] Crewmember: Domenica Velázquez MD CO2 [Moles/Vol] 26 mmol/L Normal 20-31 [facility] Comment on above: Performed By: #### D BASIA, BMP, CDP, TROPI #### [facility] [address] [place], [place] [id number] [employer] Crewmember: Domenica Velázquez MD Creatinine [Mass/Vol] 0.6 mg/dL Normal 0.5-0.9 [facility] Comment on above: Performed By: #### D BASIA, BMP, CDP, TROPI #### [facility] [address] [place] [address] [employer] Crewmember: Domenica Velázquez MD GFR/1.73 sq M.predicted among non-blacks MDRD (S/P/Bld) [Vol rate/Area] mL/min/{1.73_m2} Normal >60 [facility] Comment on above: Result Comment: [...] BMP, CDP, TROPI #### [facility] [address] [place] [address] [place] [address] [employer] Crewmember: Domenica Velázuqez MD Glucose [Mass/Vol] 96 mg/dL Normal 70-99 [facility] Comment on above: Performed By: #### D BASIA, BMP, CDP, TROPI #### [address] [place] [address] [employer] Crewmember: Domenica Velázquez MD Potassium [Moles/Vol] 3.8 mmol/L Normal 3.7-5.3 [facility] Comment on above: Performed By: #### D BASIA, BMP, CDP, TROPI #### [address] [place] [address] [employer] Crewmember: Domenica Velázquez MD Sodium [Moles/Vol] 141 mmol/L Normal 135-144 [facility] Comment on above: Performed By: #### D BASIA, BMP, CDP, TROPI #### [address] [place] [address] [employer] Crewmember: Domenica Velázquez MD Urea nitrogen [Mass/Vol] 14 mg/dL Normal 6-20 [facility] Comment on above: Performed By: #### D BASIA, BMP, CDP, TROPI #### [address] [place], [place] [address] [employer] Crewmember: Domenica Velázquez MD CBC with Diffon 10-05-2023 Abs. Basophil <0.03 Normal 0.00-0.20 [facility] Comment on above: Performed By: #### D BASIA, BMP, CDP, TROPI #### [address] [place], [place] [address] [employer] Crewmember: Domenica Velázquez MD Abs.Imm.Granulocyte 0.03 k/uL Normal 0.00-0.30 [facility] Comment on above: Performed By: #### D BASIA, BMP, CDP, TROPI #### [address] [place], [place] [address] [employer] Crewmember: Domenica Velázquez MD Abs.Neutrophil (Seg) 5.10 k/uL Normal 1.50-8.10 [facility] Comment on above: Performed By: #### D BASIA, BMP, CDP, TROPI #### [address] [place], [place] [address] [employer] Crewmember: Domenica Velázquez MD Basophils/100 WBC (Bld) 0 % Normal 0-2 [facility] Comment on above: Performed By: #### D BASIA, BMP, CDP, TROPI #### [address] [place], [place] [address] [employer] Crewmember: Domenica Velázquez MD Eosinophils (Bld) [#/Vol] 0.11 10*3/uL Normal 0.00-0.44 [facility] Comment on above: Performed By: #### D BASIA, BMP, CDP, TROPI #### [address] [place], [facility]83 [employer] Crewmember: Domenica Velázquez MD Eosinophils/100 WBC (Bld) 1 % Normal 1-4 [facility] Comment on above: Performed By: #### D BASIA, BMP, CDP, TROPI #### [address] [place], [place] [phone] [employer] Crewmember: Domenica Velázquez MD Erythrocyte distribution width (RBC) [Ratio] 13.5 % Normal 11.8-14.4 [facility] Comment on above: Performed By: #### D BASIA, BMP, CDP, TROPI #### [address] [place], [facility]83 [employer] Crewmember: Domenica Velázquez MD Hematocrit (Bld) [Volume fraction] 42.6 % Normal 36.3-47.1 [facility] Comment on above: Performed By: #### D BASIA, BMP, CDP, TROPI #### [address] [place], [facility]83 [employer] Crewmember: Domenica Velázquez MD Hemoglobin (Bld) [Mass/Vol] 14.1 g/dL Normal 11.9-15.1 [facility] Comment on above: Performed By: #### D BASIA, BMP, CDP, TROPI #### [address] [place], [facility]83 [employer] Crewmember: Domenica Velázquez MD Immature granulocytes/100 WBC (Bld) 0 % Normal 0 [facility] Comment on above: Performed By: #### D BASIA, BMP, CDP, TROPI #### [address] [place], [facility]83 [employer] Crewmember: Domenica Velázquez MD Lymphocytes (Bld) [#/Vol] 2.42 10*3/uL Normal 1.10-3.70 [facility] Comment on above: Performed By: #### D BASIA, BMP, CDP, TROPI #### [address] [place], [facility]83 [employer] Crewmember: Domenica Velázquez MD Lymphocytes/100 WBC (Bld) 30 % Normal 24-43 [facility] Comment on above: Performed By: #### D BASIA, BMP, CDP, TROPI #### [facility] [address] [place] [id number] [employer] Crewmember: Domenica Velázquez MD MCH (RBC) [Entitic mass] 28.8 pg Normal 25.2-33.5 [facility] Comment on above: Performed By: #### D BASIA, BMP, CDP, TROPI #### [address] [place] [address] [employer] Crewmember: Domenica Velázquez MD MCHC (RBC) [Mass/Vol] 33.1 g/dL Normal 28.4-34.8 [facility] Comment on above: Performed By: #### Smiley BASIA, BMP, CDP, TROPI #### [address] [place], [place] [address] [employer] Crewmember: Domenica Velázquez MD MCV (RBC) [Entitic vol] 87.1 fL Normal 82.6-102.9 [facility] Comment on above: Performed By: #### D BASIA, BMP, CDP, TROPI #### [address] [place] [address] [employer] Crewmember: Domenica Velázquez MD Monocytes (Bld) [#/Vol] 0.53 10*3/uL Normal 0.10-1.20 [facility] Comment on above: Performed By: #### D BASIA, BMP, CDP, TROPI #### [address] [place], [facility]83 [employer] Crewmember: Domenica Velázquez MD Monocytes/100 WBC (Bld) 7 % Normal 3-12 [facility] Comment on above: Performed By: #### D BASIA, BMP, CDP, TROPI #### [address] [place] [phone] [employer] Crewmember: Domenica Velázquez MD Neutrophil (Seg) 62 % Normal 36-65 [facility] Comment on above: Performed By: #### D BASIA, BMP, CDP, TROPI #### [address] [place], [facility]83 [employer] Crewmember: Domenica Velázquez MD NRBC Automated 0.0 per 100 WBC Normal 0.0 [facility] Comment on above: Performed By: #### D BASIA, BMP, CDP, TROPI #### [address] [place], [facility]83 [employer] Crewmember: Domenica Velázquez MD Platelet mean volume (Bld) [Entitic vol] 10.9 fL Normal 8.1-13.5 [facility] Comment on above: Performed By: #### D BASIA, BMP, CDP, TROPI #### [address] [place], [facility]83 [employer] Crewmember: Domenica Velázquez MD Platelets (Bld) [#/Vol] 296 10*3/uL Normal 138-453 [facility] Comment on above: Performed By: #### D BASIA, BMP, CDP, TROPI #### [address] [place], [facility]83 [employer] Crewmember: Domenica Velázquez MD RBC (Bld) [#/Vol] 4.89 10*6/uL Normal 3.95-5.11 [facility] Comment on above: Performed By: #### D BASIA, BMP, CDP, TROPI #### [address] [place], [place] [address] [employer] Crewmember: Domenica Velázquez MD WBC (Bld) [#/Vol] 8.2 10*3/uL Normal 3.5-11.3 [facility] Comment on above: Performed By: #### D BASIA, BMP, CDP, TROPI #### [address] [place] [address] [employer] Crewmember: Domenica Velázquez MD CT CHEST PULMONARY EMBOLISM [...] Fernando Marcelino MD 10/05/23 Final result Normal [facility] D-Dimer Teston 10-05-2023 D-Dimer Test 0.30 ug/mL FEU Normal 0.00-0.59 [facility] Comment on above: Result Comment: When combined [...] By: #### D BASIA, BMP, CDP, TROPI ####[address] [place] [address] Lab Director: Domenica Velázquez MD Liver Profileon 10-05-2023 Albumin [Mass/Vol] 4.4 g/dL Normal 3.5-5.2 [facility] Comment on above: Performed By: #### L IVP ####[address] [place] [address] Lab Director: Domenica Velázquez MD Albumin/Glob Ratio 1.4 Normal 1.0-2.5 [facility] Comment on above: Performed By: #### L IVP ####[address] [place] [address] Lab Director: Domenica Velázquez MD Alkaline Phos 99 U/L Normal 35-104 [facility] Comment on above: Performed By: #### L IVP ####[address] [place] [address] Lab Director: Domenica Velázquez MD ALT [Catalytic activity/Vol] 13 U/L Normal 5-33 [facility] Comment on above: Performed By: #### L IVP ####[address] [place] [address] Lab Director: Domenica Velázquez MD AST [Catalytic activity/Vol] 16 U/L Normal <32 [facility] Comment on above: Performed By: #### L IVP ####[address] , [place] [address] Lab Director: Domenica Velázquez MD Bilirubin [Mass/Vol] 0.2 mg/dL Low 0.3-1.2 [facility] Comment on above: Performed By: #### L IVP ####[address] [place] [address] Lab Director: Domenica Velázquez MD Bilirubin, Indirect Can not be calculated Normal 0.0-1 .0 [facility] Comment on above: Performed By: #### L IVP ####[address] [place] [address] Lab Director: Domenica Velázquez MD Bilirubin.indirect [Mass/Vol] mg/dL Normal <0.3 [facility] Comment on above: Performed By: #### L IVP ####[address] [place] [address] Lab Director: Domenica Velázquez MD Protein [Mass/Vol] 7.5 g/dL Normal 6.4-8.3 [facility] Comment on above: Performed By: #### L IVP ####[address] [place] [address] Lab Director: Domenica Velázquez MD Troponinon 10-05-2023 Troponin, High Sens <6 Normal 0-14 [facility] Comment on above: Result Comment: High Sensitivity Troponin values cannot be compared with other Troponin methodologies. Performed By: #### T ROPI ####[address] , [place] [address] Lab Director: Domenica Velázquez MD Troponin, High Sens <6 Normal 0-14 [facility] Comment on above: Result Comment: High Sensitivity Troponin values cannot be compared with other Troponin methodologies. Performed By: #### D BASIA, BMP, CDP, TROPI #### [facility] [address] [place] [address] [employer] Crewmember: Domenica Velázquez MD XR CHEST PORTABLEon 10-05-19 [...] Deyanira Lock MD 10/05/23 Final result Normal [facility] CT CERVICAL SPINE WO CONTRAS [...] Andi Montoya MD 04/20/23 Final result Normal [facility] CT Cervical spine WO contras ton 04-20-2023 Radiology Study observation (narrative) [facility] CT HEAD WO CONTRASTon 2023 CT [...] Andi Montoya MD 04/20/23 Final result Normal [facility] CT Head WO contraston 2023 Radiology Study observation (narrative) [facility] No Panel Informationon 04-[address] abnormal ity identified in the brain. No acute osseous abnormality identified in the cervical spine. [facility] RIS CONSOLIDATED EXAMINATION: CT OF THE CERVICAL [...] There is no prevertebral soft tissue swelling. [facility] RIS Andi Alvarez MD - 04/20/2023 EXAMINATION: [...] osseous abnormality identified in the cervical spine. [facility] No Panel InformationOrdered By: Andi Montoya on 04-20-2023 [facility] Work Phone: Glucose Glucometer (BldC) [M ass/Vol]on 03-27-2023 Glucose [Mass/Vol] 151 mg/dL High 65-[address] [facility] Glucose Poct Glucometerson 0 03-18-2023 Commemt1 Glu2: Cleaned Meter Normal [facility] Comment on above: Result Comment: PERF ORMED BY: [place] [address] PATHOLOGIST GLUED WOOD TESTER SHA VALERA M.D. Performed By: #### G LULS #### Point of Care testing , Glucose [Mass/Vol] 87 mg/dL Normal [facility] Comment on above: Result Comment: [facility] Glucose Reference Range is dependent on time and content of last meal. Glucose of more than 200 mg/dL in a nonstressed, ambulatory subject supports the diagnosis of Diabetes Mellitus. Performed By: #### G LULS #### Point of Care testing , HCG,Urineon 03-18-2023 Beta HCG ( test) Ql (U) Negative Normal The Replaced By [facility] Comment on above: Result Comment: PERF ORMED BY: [place] [address] PATHOLOGIST GLUED WOOD TESTER SHA VALERA M.D. Performed By: #### U HCG #### [address] CBC AND AUTO DIFFon 03-16-19 ABSOLUTE BASOPHIL 0.0 X10E9/L Normal 0.0-0.2 [facility] Comment on above: Performed By: #### Terrell BURGESS CMP, 87480-9, TSHR #### [facility] ([id number]) [address], [address] [place] [address] ABSOLUTE NEUTROPHIL 7.7 X10E9/L High 1.5-6.6 [facility] Comment on above: Performed By: #### Terrell BURGESS CMP, 71763-1, TSHR #### [facility] ([id number]) [address], [facility] [address] [place] [address] Basophils/100 WBC (Bld) 0.3 % Normal [facility] Comment on above: Performed By: #### Terrell BURGESS CMP, 13582-0, TSHR #### [facility] ([id number]) [address], [address] [place] [address] Eosinophils (Bld) [#/Vol] 0.1 10*3/uL Normal 0.0-0.4 [facility] Comment on above: Performed By: #### Terrell BURGESS CMP, 20336-1, TSHR #### [facility] ([id number]) [address] [address] [place] [address] Eosinophils/100 WBC (Bld) 1.1 % Normal [facility] Comment on above: Performed By: #### Terrell BURGESS CMP, 05950-6, TSHR #### [facility] ([id number]) [address], [address] [place] [address] Erythrocyte distribution width (RBC) [Ratio] 14.6 % Normal 11.5-15.0 [facility] Comment on above: Performed By: #### Terrell BURGESS CMP, 50331-4, TSHR #### [facility] ([id number]) [address], [address] [place] [address] Hematocrit (Bld) [Volume fraction] 45.7 % Normal 35-47 [facility] Comment on above: Performed By: #### Terrell BURGESS CMP, 28371-3, TSHR #### [facility] ([id number]) [address] [address] [place] [address] Hemoglobin (Bld) [Mass/Vol] 15.0 g/dL Normal 11.7-15.5 [facility] Comment on above: Performed By: #### C JAHAIRA BURGESS, 42769-4, TSHR #### [facility] ([id number]) [address] [address] [place] [address] Lymphocytes (Bld) [#/Vol] 2.4 10*3/uL Normal 1.0-3.5 [facility] Comment on above: Performed By: #### Terrell BURGESS CMP, 76859-9, TSHR #### [facility] ([id number]) [address], [facility] [address] [place] [address] Lymphocytes/100 WBC (Bld) 22.1 % Normal [facility] Comment on above: Performed By: #### Terrell BURGESS [facility], 86817-1, TSHR #### [facility] ([id number]) [address] [address] [place] [address] MCH (RBC) [Entitic mass] 29.0 pg Normal 27-34 [facility] Comment on above: Performed By: #### Terrell BURGESS CMP, 37248-6, TSHR #### [facility] ([id number]) [address] [address] [place] [address] MCHC (RBC) [Mass/Vol] 32.8 g/dL Normal 32-36 [facility] Comment on above: Performed By: #### Terrell BURGESS CMP, 27265-7, TSHR #### [facility] ([id number]) [address], [facility] [address] [place] [address] MCV (RBC) [Entitic vol] 88 fL Normal 80-100 [facility] Comment on above: Performed By: #### Terrell BURGESS CMP, 62793-3, TSHR #### [facility] ([id number]) [address], [address] [place] [address] Monocytes (Bld) [#/Vol] 0.6 10*3/uL Normal 0-0.9 [facility] Comment on above: Performed By: #### Terrell BURGESS, CMP, 71658-9, TSHR #### [facility] ([id number]) [address], [address] [place] [address] Monocytes/100 WBC (Bld) 5.7 % Normal [facility] Comment on above: Performed By: #### Terrell BURGESS CMP, 59347-6, TSHR #### [facility] ([id number]) [address], [address] [place] [address] Neutrophils/100 WBC (Bld) 70.8 % Normal [facility] Comment on above: Performed By: #### Terrell BURGESS CMP, 30336-0, TSHR #### [facility] ([id number]) [address], [address] [place] [address] Platelet mean volume (Bld) [Entitic vol] 9.7 fL Normal 7-12 [facility] Comment on above: Performed By: #### Terrell BURGESS CMP, 24145-6, TSHR #### [facility] ([id number]) [address], [address] [place] [address] Platelets (Bld) [#/Vol] 303 10*3/uL Normal 150-450 [facility] Comment on above: Performed By: #### Terrell BCA, CMP, 27487-0, TSHR #### [facility] ([id number]) [address], [address] [place] [address] RBC COUNT 5.17 X10E12/L Normal 3.80-5.20 [facility] Comment on above: Performed By: #### C BCA, CMP, 88321-5, TSHR #### [facility] ([id number]) [address], [address] [place] [address] WBC (Bld) [#/Vol] 10.9 10*3/uL Normal 4.0-11.0 [facility] Comment on above: Performed By: #### C BCA, CMP, 45502-3, TSHR #### [facility] ([id number]) [address], [address] [place] [address] COMPREHENSIVE METABOLIC PANE Dirk 03-16-2023 Albumin [Mass/Vol] 4.7 g/dL Normal 3.2-5.3 [facility] Comment on above: Performed By: #### C BCA, CMP, 75189-2, TSHR #### [facility] ([id number]) [address], [address] [place] [address] ALP [Catalytic activity/Vol] 74 U/L Normal 39-130 [facility] Comment on above: Performed By: #### C BCA, CMP, 63572-0, TSHR #### [facility] ([id number]) [address], [address] [place] [address] ALT [Catalytic activity/Vol] 22 U/L Normal 0-31 [facility] Comment on above: Performed By: #### C BCA, CMP, 24375-5, TSHR #### [facility] ([id number]) [address], [address] [place] [address] Anion gap [Moles/Vol] 12 mmol/L Normal 5-15 [facility] Comment on above: Performed By: #### C BCA, CMP, 47999-5, TSHR #### [facility] ([id number]) [address], [address] [place] [address] AST [Catalytic activity/Vol] 20 U/L Normal 0-41 [facility] Comment on above: Performed By: #### C BCA CMP, 97499-4, TSHR #### [facility] ([id number]) [address], [address] [place] [address] Bilirubin [Mass/Vol] 0.5 mg/dL Normal 0.3-1.2 [facility] Comment on above: Performed By: #### C BCA, CMP, 85536-6, TSHR #### [facility] ([id number]) [address], [facility] [address] [place] [address] Calcium [Mass/Vol] 9.9 mg/dL Normal 8.5-10.5 [facility] Comment on above: Performed By: #### C BCA CMP, 55666-8, TSHR #### [facility] ([id number]) [address], [address] [place] [address] Chloride [Moles/Vol] 105 mmol/L Normal 98-109 [facility] Comment on above: Performed By: #### C BCA, CMP, 29626-3, TSHR #### [facility] ([id number]) [address] [address] [place] [address] CO2 [Moles/Vol] 25 mmol/L Normal 22-32 [facility] Comment on above: Performed By: #### C BCA, CMP, 96173-0, TSHR #### [facility] ([id number]) [address], [address] [place] [address] Creatinine [Mass/Vol] 0.74 mg/dL Normal 0.40-1.00 [facility] Comment on above: Result Comment: METH OD TRACEABLE TO IDMS STANDARD Performed By: #### C BCA, CMP, 46625-7, TSHR #### [facility] ([id number]) [address], [address] [place] [address] eGFR (CKD-EPI) NON-RACE DEPENDENT >90 Normal >59 [facility] Comment on above: Result Comment: Reported eGFR is based on the CKD-EPI 2020 equation that does not use a race coefficient. Performed By: #### C ADITYA CMP, 63829-8, TSHR #### [facility] ([id number]) [address], [address] [place] [address] Glucose [Mass/Vol] 143 mg/dL High 65-99 [facility] Comment on above: Performed By: #### C ADITYA CMP, 58617-7, TSHR #### [facility] ([id number]) [address], [address] [place] [address] Potassium [Moles/Vol] 3.8 mmol/L Normal 3.5-5.0 [facility] Comment on above: Performed By: #### C ADITYA, CMP, 73042-7, TSHR #### [facility] ([id number]) [address], [address] [place] [address] Protein [Mass/Vol] 7.8 g/dL Normal 6.0-8.0 [facility] Comment on above: Performed By: #### C BCA, CMP, 74301-4, TSHR #### [facility] ([id number]) [address], [address] [place] [address] Sodium [Moles/Vol] 142 mmol/L Normal 134-146 [facility] Comment on above: Performed By: #### C BCA, CMP, 27740-7, TSHR #### [facility] ([id number]) [address], [address] [place] [address] Urea nitrogen [Mass/Vol] 17 mg/dL Normal 5-23 [facility] Comment on above: Performed By: #### C BCA, CMP, 30369-7, TSHR #### [facility] ([id number]) [address], [address] [place] [address] HGB A1C (GLYCO-HGB)on 2023 Glucose [Mass/Vol] 117 mg/dL Normal [facility] Comment on above: Performed By: #### Terrell BURGESS CMP, 12975-5, TSHR #### [facility] ([id number]) [address] [address] [place] [address] HbA1c (Bld) [Mass fraction] 5.7 % High 4.4-5.6 [facility] Comment on above: Result Comment: NOTE ADA Guidelines Result HgbA1c Normal : less than 5.7 % Prediabetes : 5.7 % to 6.4 % Diabetes : > 6.4 % Use with caution in patients with abnormal hemoglobin variants as the half-life of red blood cells and in vivo glycation rates are affected. Performed By: #### Terrell BURGESS CMP, 45381-8, TSHR #### [facility] ([id number]) [address] [address] Lipid 1996 panelon Cholesterol [Mass/Vol] 132 mg/dL Low 150-200 [facility] Comment on above: Performed By: #### Terrell BURGESS CMP, 66873-5, TSHR #### [facility] ([id number]) [address] [address] Cholesterol in HDL [Mass/Vol] 58 mg/dL Normal >39 [facility] Comment on above: Result Comment: HDL <40 mg/dL - High Risk HDL > or = 40mg/dL- Desirable HDL >60 mg/dL - Negative Risk Performed By: #### Terrell UBRGESS CMP, 91218-6, TSHR #### [facility] ([id number]) [address], [address] [place] [address] Cholesterol in LDL [Mass/Vol] 51 mg/dL Normal <130 [facility] Comment on above: Result Comment: LDL <100 mg/dL - Desirable LDL >160 mg/dL - High Risk Performed By: #### C BCA, CMP, 14497-0, TSHR #### [facility] ([id number]) [address], [facility] [address] [place] [address] Cholesterol in VLDL [Mass/Vol] 23 mg/dL Normal 0-30 [facility] Comment on above: Performed By: #### Terrell BCA CMP, 08540-1, TSHR #### [facility] ([id number]) [address], [facility] [address] [place] [address] CHOLESTEROL:HDL 2.3 Normal 1.0-5.0 [facility] Comment on above: Performed By: #### Terrell BCA, CMP, 05655-8, TSHR #### [facility] ([id number]) [address], [address] [place] [address] Triglyceride [Mass/Vol] 114 mg/dL Normal 27-150 [facility] Comment on above: Performed By: #### Terrell BCA, CMP, 69100-0, TSHR #### [facility] ([id number]) [address], [address] [place] [address] MAMM SCREENING BILATERAL W C computer hardware developer 03-16-2023 MAMM SCREENING BILATERAL W CAD MAMM [...] 3:25 PM 0A a ADDITIONAL I Normal [facility] TSH WITH REFLEXon 03-16-2023 TSH 0.55 uIU/mL Normal 0.49-4.67 [facility] Comment on above: Performed By: #### C BCA, [facility], 55024-7, TSHR #### [facility] ([id number]) [address] [place] [address], [address] [place] [address] PT - Assessmentson 3 PT - Assessments [id number]#1.00CD:[address] [facility] [address] - Assessmentson 3 ST - Assessments [id number]#1.00CD:127 Normal [facility] Consenton 09-25-2022 Consent [id number]#1.00CD:127 Normal [facility] Outside Recordson 2022 Outside Records [id number]#1.00CD:[address] [facility] [address] - Orderson 2022 ST - Orders [id number]#1.00CD:[address] [facility] [address] - Orders [id number]#1.00CD:[address] [facility] [address] - Otheron 2022 ST - Other [id number]#1.00CD:127 Normal [facility] PAP ACOG PANEL 2: 30 to 65on 05-27-2022 . . Normal [facility] Comment on above: Result Comment: Perf ormed at: WB Performed By: #### 4 [id number] #### [facility] [address] [address] [address] Do Aguilar Age Gdln ACOG Testing 30- [facility] Comment on above: Performed By: #### 4 [id number] #### [facility] [address] [place] [address] Dr. Do Aguilar DIAGNOSIS: Comment Normal [facility] Comment on above: Result Comment: NEGA TIVE FOR INTRAEPITHELIAL LESION OR MALIGNANCY. Performed at: WB Performed By: #### 4 [id number] #### [facility] [address] [place] [address] Dr. Do Aguilar HPV Aptima Negative Normal Negative [facility] Comment on above: Result Comment: This nucleic acid amplification test detects fourteen high-risk HPV types (16,18,31,33,35,39,45,51,52,56,58,59,66,68) without differentiation. Performed at: =G Performed By: #### 4 [id number] #### [facility] [address] [address] [address] Do Aguilar HPV Genotype Reflex Comment Normal [facility] Comment on above: Result Comment: Crit eria not met, HPV Genotype not performed. Performed at: WB Performed By: #### 4 [id number] #### [facility] [address] [place] [address] Dr. Do Aguilar Methodology: Comment Normal [facility] Comment on above: Result Comment: This liquid based ThinPrep(R) pap test was screened with the use of an image guided system. Performed at: WB Performed By: #### 4 [id number] #### [facility] [address] [place] [address] Dr. Do Aguilar Note: Comment Normal [facility] Comment on above: Result Comment: The Pap smear is a screening test designed to aid in the detection of premalignant and malignant conditions of the uterine cervix. It is not a diagnostic procedure and should not be used as the sole means of detecting cervical cancer. Both false-positive and false-negative reports do occur. . Performed at: WB Performed By: #### 4 [id number] #### [facility] [address] [address] [address] Do Aguilar Performed by: Comment Normal [facility] Comment on above: Result Comment: Melissa Ramachandran, Program Counselor (ASCP) Performed at: WB Performed By: #### 4 [id number] #### [facility] [address] [place] [address] Dr. Do Aguilar Specimen adequacy: Comment Normal [facility] Comment on above: Result Comment: Sati sfactory for evaluation. Endocervical and/or squamous metaplastic cells (endocervical component) are present. Performed at: WB Performed By: #### 4 [id number] #### [facility] [address] [place] [address] Dr. Do Aguilar HEPATITIS C AB CASCADE TO QU ANT PCR GENOon 02-18-2022 HCV AB <0.1 Normal 0.0-0.9 [facility] Comment on above: Performed By: #### H EPCASC #### [facility] [address] [place] [address] Dr. Do Aguilar Interpretation: Comment Normal [facility] Comment on above: Result Comment: Nega tive Not infected with HCV, unless recent infection is suspected or other evidence exists to indicate HCV infection. Performed By: #### H EPCASC #### [facility] [address] [place] [address] Dr. Do Aguilar LIVER PROFILEon 02-17-2022 Albumin [Mass/Vol] 3.6 g/dL Normal 3.4-5.0 [facility] Comment on above: Performed By: #### L IVER #### [facility] [address] [place] [address] Dr. Do Aguilar Albumin/Globulin [Mass ratio] 0.9 {ratio} Normal [facility] Comment on above: Performed By: #### L IVER #### [facility] [address] [place] [address] Dr. Do Aguilar ALP [Catalytic activity/Vol] 79 U/L Normal 46-116 [facility] Comment on above: Performed By: #### L IVER #### [facility] [address] [place] [address] Dr. Do Aguilar ALT [Catalytic activity/Vol] 51 U/L Normal 14-59 [facility] Comment on above: Performed By: #### L IVER #### [facility] [address] [place] [address] Dr. Do Aguilar AST [Catalytic activity/Vol] 33 U/L Normal 15-37 [facility] Comment on above: Performed By: #### L IVER #### [facility] [address] [place] [address] Dr. Do Aguilar BILI, CONJUGATED 0.1 mg/dL Normal 0.0-0.2 [facility] Comment on above: Performed By: #### L IVER #### [facility] [address] [place] [address] Dr. Do Aguilar Bilirubin [Mass/Vol] 0.3 mg/dL Normal 0.2-1.0 [facility] Comment on above: Performed By: #### L IVER #### [facility] [address] [place] [address] Dr. Do Aguilar Globulin (S) [Mass/Vol] 4.2 g/dL Normal [facility] Comment on above: Performed By: #### L IVER #### [facility] [address] [place] [address] Dr. Do Aguilar Protein [Mass/Vol] 7.8 g/dL Normal 6.4-8.2 [facility] Comment on above: Performed By: #### L IVER #### [facility] [address] [place] [address] Dr. Do Aguilar TSHon 02-17-2022 TSH 0.457 uIU/mL Normal 0.358-3.74 0 [facility] Comment on above: Performed By: #### T SH #### [facility] [address] [place], [place] [address] Dr. Do Aguilar VITAMIN B12on 02-17-2022 Cobalamin (Vitamin B12) [Mass/Vol] 1864.0 pg/mL Critically high 193.0-986. 0 [facility] Comment on above: Performed By: #### V ITB12 #### [facility] [address] [place], [place] [address] Dr. Do Aguilar History and Physicalon 12-04 History and Physical [id number]#[facility] - Surgeon/P godwin 12-04-2016 Operative Report - Surgeon/Physician [id number]#1.00[facility] Coding Summaryon 11-26-2016 Coding Summary CODING DATE: 017 [facility] STATUS: Home PAYOR: Medicaid O ADMIT DX: REASON FOR VISIT DX: R10.13 Epigastric pain R10.11 Right upper quadrant pain FINAL DX: PRINCIPAL: K29.70 Gastritis, unspecified, without bleeding SECONDARY: PROCEDURES DOCTOR NAME DATE 20398 EsophagogastroduodenTed mena Richard MD 11/21/2016 flexible, transoral; with biopsy, single or multiple NOTE: The code number assigned matches the documented diagnosis and / or procedure in the patient's chart. However, the narrative phrase printed from the coding software may appear abbreviated, or result in slightly different terminology. Coded By: Rosalba Laureano Date Saved: 11/26/2016 01:09 pm [facility] Consent Formson 11-24-2016 Consent Forms [id number]#1.00[facility] Intraoperative [facility] 2016 Intraoperative Note [id number]#1.00OTGTIFF [facility] Intraoperative Note [id number]#1.00[facility] - Surgeon/P codiesruthi 11-24-2016 Operative Report - Surgeon/Physician DATE OF [...] in two weeks.Juan Ramon Jean M.D.JOB #: [id number]: 11/21/2016T: 11/21/2016[Electronically Signed on: 12/03/2016 07:09 EDT] Juan Ramon Jean MD Generated Domain User for [id number][Verified on: 12/03/2016 07:09 EDT] Juan Ramon Jean MD[Transcribed on: 11/21/2016 11:37 EDT]GDU Normal [facility] Telemetry Stripson 7 Telemetry Strips [id number]#1.00OTGTIFF [facility] Telemetry Strips [id number]#1.00OTGTIFF [facility] H. Pylori Gastricon 11-22-19 17 H. Pylori Rico Int Ctrl Pass [facility] Comment on above: Order Comment: H. (A NTRUM) Result Comment: Pass Performed By: #### 2 [id number] ####[facility] (DEFAULT)[address] [place] [address] H. Pylori Gastric Negative Normal Negative [facility] Comment on above: Order Comment: H. (A NTRUM) Result Comment: Nega tive Performed By: #### 2 [id number] ####[facility] (DEFAULT)[address] [place] [address] Inpatient Clinical Summaryon 11-21-2016 Inpatient Clinical Summary [facility] SURGERYClinical Discharge SummaryPERSON INFORMATIONName ROSE KARMA BANEGAS Age 36 Years [birth year]/Sex FEMALE Language Qatari PCP DEFRANCE, DAVIDMarital Status Med Service Ambulatory SurgeryMRN [id number] Acct# Arrival 11/21/16 07:22:21Visit Reason EGD - EPIGASTRIC ABDOMINAL PAIN Acuity LOS 013 23:19Address:[address] [address]Ecpndka:PROVIDER INFORMATIONVITALS INFORMATIONVital Sign Triage LatestTemp OralTemp Temporal 36.4 DegC 36.4 DegCTemp IntravascularTemp AxillaryTemp Upiwdr92 Sat 100 % 97 %Respiratory Rate 16 [...] INFORMATIONInstructions:Fo llow up:With: Address: When:Juan Ramon Jean [address] [place] [id number] Business (1) Within 2 to 4 weeksComments:Call for follow up appointmentWith: Address: When:DOMENICA OLIVA [address] [place] [address] [phone] Business (3)DIAGNOSISAcute gastritisComment:PHYS DOC NOTES Normal [facility] Inpatient Patient Summaryon 11-21-2016 Inpatient Patient Summary [id number] patient Discharge InstructionsName: KARMA SRDOB: [birth year] Address: [address] [place] [address] Care Provider:Name: DOMENICA OLIVAPhone: Discharge Diagnosis: Acute [...] decisions or sign any legal documentsMercy Health would like to thank you for allowing us to assist you with your healthcare needs. The following includes patient education materials and information regarding your injury/illness.KARMA SR has been given the following list of follow-up instructions, prescriptions, and patient education materials:Follow-up InstructionsWith: Address: When:Juan Ramon Jean [address] [place] [address] [phone] Managed Objects (1) Within 2 to 4 weeksComments:Call for follow up appointmentWith: Address: When:DOMENICA VARGHESEMARK [address] [place] [address] Managed Objects (1)MedicationsDuring the course of your visit, your [...] for Disease Control and Prevention October 2013 [facility] 11-21-2016 [facility] Intraoperative Record [facility] Intra-Op Record Summary Primary Physician: Juan Ramon Jean MD Finalized Date/Time: 11/21/16 08:37:38 Pt. Name: KARMA SR/Sex: 1980 FEMALE Med Rec #: [id number] Physician: Juan Ramon Jean MD Financial #: [id number] Pt. 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 Name: ROSE BANEGASKARMA/Sex: 1980 FEMALE Med Rec #: [id number] Physician: Juan Ramon Jean MD Financial #: [id number] Pt. Type: D Room/Bed: / Admit/Disch: 11/21/16 07:22:21 - Institution: [facility] II [facility] Pre-Care Text: Patient is free from s/s [...] Signed By: Cammy Barroso RN 11/21/16 10:02 [facility] MAGR Endo Preoperative Recor don 11-21-2016 [facility] Endo Preoperative Record [facility] Pre-Op Record Summary Primary Physician: Juan Ramon Jean MD Finalized Date/Time: 11/21/16 08:27:58 Pt. Name: KARMA SR /Sex: 1980 FEMALE Med Rec #: [id number] Physician: Juan Ramon Jean MD Financial #: [id number] Pt. Type: D Room/Bed: / Admit/Disch: 11/21/16 07:22:21 - Institution: Pre-Op Case Times [facility] Pre-Care Text: Patient will be optimally prepared [...] Signed By: Cammy Barroso RN 11/21/16 08:27 [facility] Test Urine 1on U Preg Negative [facility] Comment on above: Result Comment: Nega tive Performed By: #### 3 [id number] ####[facility] (DEFAULT)[address] [place] [address] U Preg Internal Control Pass Normal [facility] Comment on above: Result Comment: Pass Performed By: #### 3 [id number] ####[facility] (DEFAULT)[address] [place] [address] Vital Signs Date Time Vital Sign Value Performing Clinician Facility 06-02-2024 09:30-0400 Body height 160.02 cm Rory Shammo SEMAPHORE OPERATOR-BC Work Phone: [facility] 06-02-2024 09:30-0400 Body mass index (BMI) [Ratio] 38.7 kg/m2 Rory Shammo SEMAPHORE OPERATOR-BC Work Phone: [facility] 06-02-2024 09:30-0400 Body weight 99.1 kg Rory Shammo SEMAPHORE OPERATOR-BC Work Phone: [facility] 06-02-2024 09:30-0400 Diastolic blood pressure 74 mm[Hg] Rory Shammo SEMAPHORE OPERATOR-BC Work Phone: [facility] 06-02-2024 09:30-0400 Systolic blood pressure 127 mm[Hg] Rory Shammo SEMAPHORE OPERATOR-BC Work Phone: [facility] 05-26-2024 11:32-0400 Body mass index (BMI) [Ratio] 40.39 kg/m2 Roel Shirlene DO Work Phone: [facility] 05-26-2024 11:32-0400 Body weight 103.42 kg Roel Shirlene DO Work Phone: [facility] 05-26-2024 11:32-0400 Diastolic blood pressure 78 mm[Hg] Roel Shirlene DO Work Phone: [facility] 05-26-2024 11:32-0400 Systolic blood pressure 128 mm[Hg] Roel Shirlene DO Work Phone: [facility] 04-28-2024 10:28-0500 Body height 160 cm Mendez Cardoso DO Work Phone: [facility] 04-28-2024 10:28-0500 Body mass index (BMI) [Ratio] 38.79 kg/m2 Mendez Cardoso DO Work Phone: [facility] 04-28-2024 10:28-0500 Body weight 99.34 kg Mendez Cardoso DO Work Phone: [facility] 04-18-2024 10:57-0500 Body mass index (BMI) [Ratio] 38.79 kg/m2 Roel Shirlene DO Work Phone: [facility] 04-18-2024 10:57-0500 Body weight 99.34 kg Roel Shirlene DO Work Phone: [facility] 04-18-2024 10:57-0500 Diastolic blood pressure 84 mm[Hg] Roel Shirlene DO Work Phone: [facility] 04-18-2024 10:57-0500 Systolic blood pressure 138 mm[Hg] Roel Shirlene DO Work Phone: [facility] 04-07-2024 10:31-0500 Body height 160 cm Cleo Zambrano MD Work Phone: [facility] 04-07-2024 10:31-0500 Body mass index (BMI) [Ratio] 39.33 kg/m2 Cleo Zambrano MD Work Phone: [facility] 04-07-2024 10:31-0500 Body weight 100.7 kg Cleo Zambrano MD Work Phone: [facility] 04-07-2024 10:31-0500 Diastolic blood pressure 82 mm[Hg] Cleo Zambrano MD Work Phone: [facility] 04-07-2024 10:31-0500 Heart rate 107 /min Cleo Zambrano MD Work Phone: [facility] 04-07-2024 10:31-0500 Respiratory rate 16 /min Cleo Zambrano MD Work Phone: [facility] 04-07-2024 10:31-0500 SaO2% (BldA) [Mass fraction] 98 % Cleo Zambrano MD Work Phone: [facility] 04-07-2024 10:31-0500 Systolic blood pressure 122 mm[Hg] Cleo Zambrano MD Work Phone: [facility] 01-21-2024 09:35-0500 Body height 160.02 cm Rory Shammo SEMAPHORE OPERATOR-BC Work Phone: [facility] 01-21-2024 09:35-0500 Body mass index (BMI) [Ratio] 38.8 kg/m2 Rory Shammo SEMAPHORE OPERATOR-BC Work Phone: [facility] 01-21-2024 09:35-0500 Body weight 99.4 kg Rory Shammo SEMAPHORE OPERATOR-BC Work Phone: [facility] 01-13-2024 17:30-0500 Diastolic blood pressure 71 mm[Hg] Lisette Junior DO Work Phone: [employer] 01-13-2024 17:30-0500 Heart rate 95 /min Lisette Junior DO Work Phone: [employer] 01-13-2024 17:30-0500 SaO2% (BldA) [Mass fraction] 99 % Lisette Junior DO Work Phone: [employer] 01-13-2024 17:30-0500 Systolic blood pressure 131 mm[Hg] Lisette Junior DO Work Phone: [employer] 01-13-2024 15:30-0500 Respiratory rate 16 /min Lisette Junior DO Work Phone: [employer] 01-13-2024 14:24-0500 Body height 160 cm Lisette Junior DO Work Phone: [employer] 01-13-2024 14:24-0500 Body mass index (BMI) [Ratio] 37.55 kg/m2 Lisette Junior DO Work Phone: [facility] 01-13-2024 14:24-0500 Body temperature 98.1 [degF] Lisette Junior DO Work Phone: [facility] 01-13-2024 14:24-0500 Body weight 96.16 kg Lisette Junior DO Work Phone: [facility] 11-30-2023 11:10-0400 Body height 160 cm Brittany Gillvolodymyr [employer] P[employer]ER Work Phone: [facility] 11-30-2023 11:10-0400 Body mass index (BMI) [Ratio] 35.96 kg/m2 Brittany Gillmor [employer]S P[employer]ER Work Phone: [facility] 11-30-2023 11:10-0400 Body weight 92.08 kg Brittany Tjr [employer]S P[employer]ER Work Phone: [facility] 11-30-2023 10:26-0400 Diastolic blood pressure 70 mm[Hg] Brittany Gillmor [employer]S P[employer]ER Work Phone: [facility] 11-30-2023 10:26-0400 Heart rate 90 /min Brittany Gottimor [employer]S P[employer]ER Work Phone: [facility] 11-30-2023 10:26-0400 SaO2% (BldA) [Mass fraction] 96 % Brittany Ana Maríadaner PART[employer] P[employer]ER Work Phone: [facility] 11-30-2023 10:26-0400 Systolic blood pressure 118 mm[Hg] Brittany Gillmor [employer]S P[employer]ER Work Phone: [facility] 05-21-2023 11:22-0400 Body height 160.02 cm [facility] 05-21-2023 11:22-0400 Body mass index (BMI) [Ratio] 36.5 kg/m2 [facility] 05-21-2023 11:22-0400 Body weight 93.44 kg [facility] 05-21-2023 10:39-0400 Body height 160.02 cm [facility] 05-21-2023 10:39-0400 Body mass index (BMI) [Ratio] 36.5 kg/m2 [facility] 05-21-2023 10:39-0400 Body weight 93.49 kg [facility] 05-21-2023 10:39-0400 Diastolic blood pressure 77 mm[Hg] [facility] 05-21-2023 10:39-0400 Heart rate 105 /min [facility] 05-21-2023 10:39-0400 Respiratory rate 18 /min [facility] 05-21-2023 10:39-0400 SaO2% (BldA) [Mass fraction] 95 % [facility] 05-21-2023 10:39-0400 Systolic blood pressure 114 mm[Hg] [facility] 04-20-2023 12:41-0500 Body mass index (BMI) [Ratio] 36.49 kg/m2 Shawna Rumschlag DO Work Phone: [facility] 04-20-2023 12:41-0500 Body weight 93.44 kg Shawna Rumschlag DO Work Phone: [facility] 04-20-2023 12:41-0500 Diastolic blood pressure 76 mm[Hg] Shawna Rumschlag DO Work Phone: [facility] 04-20-2023 12:41-0500 Heart rate 83 /min Shawna Rumschlag DO Work Phone: [facility] 04-20-2023 12:41-0500 Respiratory rate 16 /min Shawna Rumschlag DO Work Phone: [facility] [place] CK1 04-20-2023 12:41-0500 SaO2% (BldA) [Mass fraction] 98 % Shawna Rumschlag DO Work Phone: [facility] [place] CK1 04-20-2023 12:41-0500 Systolic blood pressure 129 mm[Hg] Shawna Rumschlag DO Work Phone: [facility] 04-20-2023 12:39-0500 Body temperature 97.3 [degF] Shawna Dudley DO Work Phone: [facility] [employer] [facility] 03-18-2023 11:30-0500 Diastolic blood pressure 84 mm[Hg] MD Yo Blank Work Phone: [facility] 03-18-2023 11:30-0500 Heart rate 95 /min MD Yo Blank Work Phone: [facility] 03-18-2023 11:30-0500 Respiratory rate 16 /min MD Yo Blank Work Phone: [facility] 03-18-2023 11:30-0500 SaO2% (BldA) [Mass fraction] 99 % MD Yo Blank Work Phone: [facility] 03-18-2023 11:30-0500 Systolic blood pressure 123 mm[Hg] MD Yo Blank Work Phone: [facility] 03-05-2023 09:15-0500 Body height 160.02 cm Gayathri Scally Other [employer] Other 03-05-2023 09:15-0500 Body mass index (BMI) [Ratio] 37.57 kg/m2 Gayathri Scally Other [employer] Other 03-05-2023 09:15-0500 Body weight 96.21 kg Gayathri Scally Other [employer] Other 03-05-2023 09:15-0500 Diastolic blood pressure 89 mm[Hg] Gayathri Scally Other [employer] Other 03-05-2023 09:15-0500 Respiratory rate 18 /min Gayathri Scally Other [employer] Other 03-05-2023 09:15-0500 SaO2% (BldA) [Mass fraction] 96 % Gayathri Adams Other [employer] Other 03-05-2023 09:15-0500 Systolic blood pressure 122 mm[Hg] Gayathri Adams Other [employer] Other 03-02-2023 19:24-0500 Body height 160 cm Sil Sullivan DO Work Phone: [employer] 03-02-2023 19:24-0500 Body mass index (BMI) [Ratio] 36.31 kg/m2 Sil Nate DO Work Phone: [employer] 03-02-2023 19:24-0500 Body temperature 98.29 [degF] Sil Sullivan DO Work Phone: [employer] 03-02-2023 19:24-0500 Body weight 92.99 kg Sil Sullivan DO Work Phone: [employer] 03-02-2023 19:24-0500 Diastolic blood pressure 98 mm[Hg] Sil Sullivan DO Work Phone: [employer] 03-02-2023 19:24-0500 Heart rate 82 /min Sil Sullivan DO Work Phone: [employer] 03-02-2023 19:24-0500 Respiratory rate 18 /min Sil Sullivan DO Work Phone: [employer] 03-02-2023 19:24-0500 SaO2% (BldA) [Mass fraction] 98 % Sil Sullivan DO Work Phone: [employer] 03-02-2023 19:24-0500 Systolic blood pressure 139 mm[Hg] Sil Sullivan DO Work Phone: [employer] 02-05-2023 09:20-0500 Body height 160.02 cm Jan Garg Other [employer] Other 02-05-2023 09:20-0500 Body mass index (BMI) [Ratio] 36.66 kg/m2 Jan Scovanner Other [employer] Other 02-05-2023 09:20-0500 Body weight 93.9 kg Jan Sczayda Other [employer] Other 01-15-2023 09:45-0500 Body height 160.02 cm Gayathri Scally Other [employer] Other 01-15-2023 09:45-0500 Body mass index (BMI) [Ratio] 36.68 kg/m2 Gayathri Scally Other [employer] Other 01-15-2023 09:45-0500 Body weight 93.94 kg Gayathri Scally Other [employer] Other 01-15-2023 09:45-0500 Diastolic blood pressure 83 mm[Hg] Gayathri Scally Other [employer] Other 01-15-2023 09:45-0500 Respiratory rate 18 /min Gayathri Scally Other [employer] Other 01-15-2023 09:45-0500 SaO2% (BldA) [Mass fraction] 99 % Gayathri Scally Other [employer] Other 01-15-2023 09:45-0500 Systolic blood pressure 119 mm[Hg] Gayathri Scally Other [employer] Other 01-07-2023 10:00-0500 Body height 160.02 cm Jan Scovanner Other [employer] Other 01-07-2023 10:00-0500 Body mass index (BMI) [Ratio] 36.13 kg/m2 Jan Scovanner Other [employer] Other 01-07-2023 10:00-0500 Body weight 92.53 kg Jan Scovanner Other [employer] Other 01-07-2023 10:00-0500 Diastolic blood pressure 74 mm[Hg] Jan Scovanner Other [employer] Other 01-07-2023 10:00-0500 Systolic blood pressure 118 mm[Hg] Jan Scovanner Other [employer] Other 08-28-2022 09:00-0400 Body height 160.02 cm Tamar Fitt Other [employer] Other 08-28-2022 09:00-0400 Body mass index (BMI) [Ratio] 35.8 kg/m2 Tamar Fitt Other [employer] Other 08-28-2022 09:00-0400 Body weight 91.67 kg Tamar Fitt Other [employer] Other 07-29-2022 10:15-0400 Body height 160.02 cm Gayathri Scally Other [employer] Other 07-29-2022 10:15-0400 Body mass index (BMI) [Ratio] 35.18 kg/m2 Gayathri Scally Other [employer] Other 07-29-2022 10:15-0400 Body weight 90.08 kg Gayathri Scally Other [employer] Other 07-29-2022 10:15-0400 Diastolic blood pressure 84 mm[Hg] Gayathri Scally Other [employer] Other 07-29-2022 10:15-0400 Respiratory rate 18 /min Gayathri Scally Other [employer] Other 07-29-2022 10:15-0400 SaO2% (BldA) [Mass fraction] 99 % Gayathri Scally Other [employer] Other 07-29-2022 10:15-0400 Systolic blood pressure 127 mm[Hg] Gayathri Scally Other [employer] Other 05-20-2022 11:15-0400 Body height 160.02 cm Gayathri Scally Other [employer] Other 05-20-2022 11:15-0400 Body mass index (BMI) [Ratio] 34.52 kg/m2 Gayathri Scally Other [employer] Other 05-20-2022 11:15-0400 Body weight 88.41 kg Gayathri Scally Other [employer] Other 05-20-2022 11:15-0400 Diastolic blood pressure 82 mm[Hg] Gayathri Scally Other [employer] Other 05-20-2022 11:15-0400 Respiratory rate 18 /min Gayathri Scally Other [employer] Other 05-20-2022 11:15-0400 SaO2% (BldA) [Mass fraction] 97 % Gayathri Scally Other [employer] Other 05-20-2022 11:15-0400 Systolic blood pressure 121 mm[Hg] Gayathri Scally Other [employer] Other 04-08-2022 11:15-0500 Body height 160.02 cm Gayathri Scally Other [employer] Other 04-08-2022 11:15-0500 Body mass index (BMI) [Ratio] 34.49 kg/m2 Gayathri Scally Other [employer] Other 04-08-2022 11:15-0500 Body weight 88.32 kg Gayathri Scally Other [employer] Other 04-08-2022 11:15-0500 Diastolic blood pressure 77 mm[Hg] Gayathri Scally Other [employer] Other 04-08-2022 11:15-0500 Respiratory rate 18 /min Gayathri Scally Other [employer] Other 04-08-2022 11:15-0500 SaO2% (BldA) [Mass fraction] 98 % Gayathri Scally Other [employer] Other 04-08-2022 11:15-0500 Systolic blood pressure 110 mm[Hg] Gayathri Scally Other [employer] Other 04-08-2022 10:15-0500 Body height 160.02 cm Tamar Fitt Other [employer] Other 04-08-2022 10:15-0500 Body mass index (BMI) [Ratio] 34.49 kg/m2 Tamar Fitt Other [employer] Other 04-08-2022 10:15-0500 Body weight 88.32 kg Tamar Fitt Other [employer] Other 02-26-2022 10:00-0500 Body height 160.02 cm Tamar Fitt Other [employer] Other 02-25-2022 11:45-0500 Body height 160.02 cm Gayathri Scally Other [employer] Other 02-25-2022 11:45-0500 Body mass index (BMI) [Ratio] 36.63 kg/m2 Gayathri Scally Other [employer] Other 02-25-2022 11:45-0500 Body weight 93.8 kg Gayathri Scally Other [employer] Other 02-25-2022 11:45-0500 Diastolic blood pressure 78 mm[Hg] Gayathri Scally Other [employer] Other 02-25-2022 11:45-0500 Respiratory rate 18 /min Gayathri Scally Other [employer] Other 02-25-2022 11:45-0500 SaO2% (BldA) [Mass fraction] 97 % Gayathri Scally Other [employer] Other 02-25-2022 11:45-0500 Systolic blood pressure 109 mm[Hg] Gayathri Scally Other [employer] Other 01-14-2022 11:45-0500 Body height 160.02 cm Gayathri Scally Other [employer] Other 01-14-2022 11:45-0500 Body mass index (BMI) [Ratio] 39.37 kg/m2 Gayathri Scally Other [employer] Other 01-14-2022 11:45-0500 Body weight 100.84 kg Gayathri Scally Other [employer] Other 01-14-2022 11:45-0500 Diastolic blood pressure 88 mm[Hg] Gayathri Scally Other [employer] Other 01-14-2022 11:45-0500 Respiratory rate 18 /min Gayathri Scally Other [employer] Other 01-14-2022 11:45-0500 SaO2% (BldA) [Mass fraction] 97 % Gayathri Scally Other [employer] Other 01-14-2022 11:45-0500 Systolic blood pressure 124 mm[Hg] Gayathri Scally Other [employer] Other 12-04-2021 12:00-0400 Body height 160.02 cm Gayathri Scally Other [employer] Other 12-04-2021 12:00-0400 Body mass index (BMI) [Ratio] 39.73 kg/m2 Gayathri Scally Other [employer] Other 12-04-2021 12:00-0400 Body weight 101.74 kg Gayathri Scally Other [employer] Other 12-04-2021 12:00-0400 Diastolic blood pressure 74 mm[Hg] Gayathri Scally Other [employer] Other 12-04-2021 12:00-0400 Respiratory rate 18 /min Gayathri Scally Other [employer] Other 12-04-2021 12:00-0400 SaO2% (BldA) [Mass fraction] 95 % Gayathri Scally Other [employer] Other 12-04-2021 12:00-0400 Systolic blood pressure 110 mm[Hg] Gayathri Scally Other [employer] Other 10-29-2021 11:30-0400 Body height 160.02 cm Yo Blank Other [employer] Other 10-29-2021 11:30-0400 Body mass index (BMI) [Ratio] 38.61 kg/m2 Yo Blank Other [employer] Other 10-29-2021 11:30-0400 Body weight 98.88 kg Yo Blank Other [employer] Other 10-29-2021 11:30-0400 Diastolic blood pressure 74 mm[Hg] Yo Blank Other [employer] Other 10-29-2021 11:30-0400 Systolic blood pressure 111 mm[Hg] Yo Blank Other [facility] [employer] Other 10-22-2021 13:26-0400 Body temperature 97.2 [degF] Shawna Rumschlag DO Work Phone: [employer] 10-22-2021 13:26-0400 Diastolic blood pressure 71 mm[Hg] Shawna Rumschlag DO Work Phone: [employer] 10-22-2021 13:26-0400 Heart rate 85 /min Shawna Rumschlag DO Work Phone: [employer] 10-22-2021 13:26-0400 Respiratory rate 16 /min Shawna Rumschlag DO Work Phone: [employer] 10-22-2021 13:26-0400 SaO2% (BldA) [Mass fraction] 94 % Shawna Rumschlag DO Work Phone: [employer] 10-22-2021 13:26-0400 Systolic blood pressure 131 mm[Hg] Shawna Rumschlag DO Work Phone: [employer] 10-11-2021 23:48-0400 Body height 160 cm Daniel Adkins MD Work Phone: [employer] 10-11-2021 23:48-0400 Body mass index (BMI) [Ratio] 36.67 kg/m2 Daniel Adkins MD Work Phone: [employer] 10-11-2021 23:48-0400 Body temperature 98.6 [degF] Daniel Adkins MD Work Phone: [employer] 10-11-2021 23:48-0400 Body weight 93.89 kg Daniel Adkins MD Work Phone: [employer] 10-11-2021 23:48-0400 Diastolic blood pressure 88 mm[Hg] Daniel Adkins MD Work Phone: [employer] 10-11-2021 23:48-0400 Heart rate 97 /min Daniel Adkins MD Work Phone: [employer] 10-11-2021 23:48-0400 Respiratory rate 16 /min Daniel Adkins MD Work Phone: [employer] 10-11-2021 23:48-0400 SaO2% (BldA) [Mass fraction] 96 % aDniel Adkins MD Work Phone: [employer] 10-11-2021 23:48-0400 Systolic blood pressure 134 mm[Hg] Daniel Adkins MD Work Phone: [employer] Encounters Encounter Date Encounter Type Care Provider Facility Start: 06-02-2024 End: 06-02-2024 ambulatory Rory T Shammo [employer]BC Work Phone: [facility] Work Phone: Start: 06-02-2024 End: 06-02-2024 Patient encounter procedure Rory Beebemo [employer]APHORE OPERATOR[employer]BC Work Phone: Replaced By [facility] Work Phone: Start: 05-27-2024 End: 05-27-2024 Clinisync Result Encounter Roel Shirlene DO Work Phone: [facility] External Department Unsolicited Start: 05-27-2024 End: 05-27-2024 Clinisync Result Encounter Roel Shirlene DO Work Phone: [facility] External [facility] Unsolicited Start: 05-26-2024 End: 05-31-2024 Clinisync Result Encounter Roel Shirlene DO Work Phone: [facility] External Department Unsolicited Start: 05-26-2024 End: 05-31-2024 Clinisync Result Encounter Roel Shirlene DO Work Phone: [facility] External Department Unsolicited Start: 05-26-2024 End: 05-26-2024 Patient encounter procedure Roel Shirlene DO Work Phone: [facility] Start: 05-26-2024 End: 05-26-2024 Periodic preventive med est patient 40-64yrs Roel Shirlene DO Work Phone: [facility] Comment on above: Well woman exam with routine gynecological exam; Breast cancer screening by mammogram Start: 05-26-2024 End: 05-26-2024 ambulatory ROEL ARTO Not Available Start: 05-10-2024 End: 05-10-2024 ambulatory LAILA SORENSONNER Not Available Start: 05-09-2024 End: 05-09-2024 ambulatory Ugo Bourgeois MD Facility:[facility] Start: 04-28-2024 End: 04-28-2024 Office outpatient visit 25 minutes Mendez Cardoso DO Work Phone: [facility] Comment on above: Obstructive sleep ap austin (Primary Dx); Intolerance of continuous positive airway pressure (CPAP) ventilation; Body mass index 34.0-34.9, adult Start: 04-28-2024 End: 04-28-2024 ambulatory MENDEZ CARDOSO Not Available Start: 04-25-2024 End: 04-25-2024 Bamboo flowsheet Brittany Neville [employer] Work Phone: [facility] Start: 04-25-2024 End: 04-25-2024 Bamboo flowsheet Brittany Neville [employer] Work Phone: [facility] Start: 04-18-2024 End: 04-18-2024 Bamboo flowsheet Roel Shirlene DO Work Phone: [facility] Start: 04-18-2024 End: 04-18-2024 Bamboo flowsheet Roel Shirlene DO Work Phone: [facility] Start: 04-18-2024 End: 04-18-2024 Clinisync Result Encounter Roel Shirlene DO Work Phone: [facility] External Department Unsolicited Start: 04-18-2024 End: 04-18-2024 ambulatory ROEL SHIRLENE Not Available Start: 04-18-2024 End: 04-18-2024 Office outpatient visit 15 minutes Roel Arto DO Work Phone: [facility] Comment on above: Hormone imbalance; Hormone disorder; Toenail fungus Start: 04-13-2024 End: 04-14-2024 Telephone encounter Cleo Zambrano MD Work Phone: [facility] Comment on above: Prior Authorization Start: 04-07-2024 End: 04-07-2024 Bamboo flowsheet Cleo Zambrano MD Work Phone: [facility] Start: 04-07-2024 End: 04-07-2024 Bamboo flowsheet Cleo Zambrano MD Work Phone: [facility] Start: 04-07-2024 End: 04-07-2024 ambulatory CLEO ZAMBRANO Not Available Start: 04-07-2024 End: 04-07-2024 Office outpatient visit 25 minutes Cleo Zambrano MD Work Phone: [facility] Comment on above: Type 2 diabetes mine itus without complication, unspecified whether penitentiary insulin use ([facility]) (Primary Dx); Vitamin D deficiency; Weight gain; Encounter for dietary consultation; Hyperlipemia, mixed (CMS/[facility]); Class 2 severe obesity due to excess calories with serious comorbidity and body mass index (BMI) of 39.0 to 39.9 in adult (CMS/HCC) Start: 04-04-2024 Non-patient / Non-visit Rory Driver SEMAPHORE OPERATOR-BC Work Phone: [facility] Work Phone: Start: 03-09-2024 End: 03-09-2024 ambulatory Rory Beebemo SEMAPHORE OPERATOR-BC Work Phone: [facility] Work Phone: Start: 03-09-2024 End: 03-09-2024 Departed Referred Rory Driver SEMAPHORE OPERATOR-BC Work Phone: [facility] Start: 02-29-2024 End: 03-03-2024 Refill Paula Sanderson MD Work Phone: [facility] Comment on above: Chronic rhinitis Start: 02-16-2024 End: 02-17-2024 Telephone encounter Cleo Zambrano MD Work Phone: [facility] Comment on above: Medication Problem Start: 02-09-2024 End: 02-09-2024 Subsequent [facility] Start: 02-09-2024 ambulatory [facility] Start: 02-01-2024 End: 02-01-2024 ambulatory Ugo Bourgeois MD Facility: [facility] Start: 01-26-2024 End: 01-26-2024 [facility] Start: 01-26-2024 End: 01-26-2024 Subsequent hospital visit by physician Tamar Silveira PT [facility] Comment on above: Arrived Start: 01-21-2024 End: 01-21-2024 Patient encounter procedure Rory Driver SEMAPHORE OPERATOR-BC Work Phone: Replaced By [facility] Work Phone: Start: 01-13-2024 End: 01-13-2024 Emergency department patient visit Lisette Junior DO Work Phone: [facility] ED Comment on above: Dizziness (Primary D x) Start: 01-11-2024 End: 01-11-2024 ambulatory Ugo Bourgeois MD Facility: [facility] Start: 12-29-2023 End: 12-29-2023 Subsequent hospital visit by physician [facility] Start: 12-21-2023 End: 12-21-2023 ambulatory [facility] Start: 12-15-2023 End: 12-15-2023 ambulatory [facility]AWNA [facility] Start: 12-01-2023 End: 12-01-2023 ambulatory SHAWNA [facility] Start: 11-30-2023 End: 11-30-2023 Bamboo flowsheet Brittany Neville [employer] Work Phone: [facility] Start: 11-30-2023 End: 11-30-2023 Bamboo flowsheet Brittany Neville [employer] Work Phone: [facility] Start: 11-30-2023 End: 11-30-2023 Telephone encounter Brittany Neville [employer] Work Phone: [facility] Start: 11-30-2023 End: 11-30-2023 ambulatory BRITTANY NEVILLE Not Available Start: 11-30-2023 End: 11-30-2023 Office outpatient visit 25 minutes Brittany Neville [employer] Work Phone: [facility] Comment on above: JADON (obstructive sle ep apnea) (Primary Dx); Tension headache; Chronic bilateral low back pain, unspecified whether sciatica present; Paresthesias Start: 11-17-2023 End: 11-17-2023 ambulatory [facility] Start: 11-17-2023 End: 11-17-2023 Subsequent hospital visit by physician Tamar Silveira PT [facility] Physical Therapy Comment on above: Arrived Start: 11-16-2023 End: 11-16-2023 ambulatory Ugo Bourgeois MD Facility: [facility] Start: 10-20-2023 End: 10-20-2023 ambulatory [facility] Start: 10-20-2023 End: 10-20-2023 Subsequent hospital visit by physician Jan Olmstead PT [facility] Physical Therapy Comment on above: Arrived Start: 10-08-2023 End: 10-08-2023 ambulatory ADAM PALMER [facility] Start: 10-06-2023 End: 10-07-2023 Emergency department patient visit [facility] Start: 10-05-2023 End: 10-05-2023 Emergency department patient visit [facility] Start: 10-05-2023 End: 10-05-2023 Emergency department patient visit [facility] Start: 09-22-2023 End: 09-22-2023 Subsequent hospital visit by physician Jan Olmstead PT [facility] Physical Therapy Start: 09-15-2023 End: 09-15-2023 ambulatory SHAWNA RUMSCHLAG [facility] Start: 09-07-2023 End: 09-07-2023 ambulatory [facility]AWNA RUMSCHLAG [facility] Start: 09-01-2023 End: 09-01-2023 ambulatory SHAWNA RUMSCHLAG [facility] Start: 08-26-2023 End: 08-26-2023 ambulatory SHAWNA RUMSCHLAG [facility] Start: 08-26-2023 End: 08-26-2023 Subsequent hospital visit by physician Kofi Villegas PT [facility] Physical Therapy Comment on above: Arrived Start: 08-21-2023 End: 08-21-2023 ambulatory SHAWNA RUMSCHLAG [facility] Start: 08-21-2023 End: 08-21-2023 Subsequent hospital visit by physician Jan Olmstead PT [facility] Physical Therapy Comment on above: Arrived Start: 08-13-2023 End: 08-13-2023 ambulatory LAILA SANTOS Not Available Start: 08-11-2023 End: 08-11-2023 ambulatory SHAWNA RUMSCHLAG [facility] Start: 08-11-2023 End: 08-11-2023 Subsequent hospital visit by physician Jan Olmstaed PT [facility] Physical Therapy Comment on above: Arrived Start: 08-04-2023 End: 08-04-2023 ambulatory SHAWNA RUMSCHLAG [facility] Start: 07-29-2023 End: 07-29-2023 ambulatory SHAWNA RUMSCHLAG [facility] Start: 07-14-2023 End: 07-14-2023 Subsequent hospital visit by physician Rebecca Skinner PT [facility] Physical Therapy Start: 07-07-2023 End: 07-07-2023 ambulatory SHAWNA EDWARG [facility] Start: 06-30-2023 End: 06-30-2023 ambulatory SHAWNA RUMSCHELIZABETHG [facility] Start: 06-17-2023 End: 06-17-2023 ambulatory SHAWNA EDWARG [facility] Start: 06-16-2023 End: 06-16-2023 ambulatory SHAWNA BOGDAN [facility] Start: 06-04-2023 End: 06-04-2023 ambulatory SHAWNA EDWARG [facility] Start: 06-03-2023 End: 06-03-2023 [facility] Start: 06-02-2023 End: 06-02-2023 ambulatory FORTINOREJI ROBLEDO [facility] Start: 06-02-2023 ambulatory SHAWNA Jin [facility] Start: 05-25-2023 Patient encounter procedure Brittany Neville [employer] Work Phone: [facility] Start: 05-21-2023 End: 05-21-2023 Patient encounter procedure Replaced By [facility] Work Phone: Start: 05-21-2023 End: 05-21-2023 Patient encounter procedure Replaced By [facility] Work Phone: Start: 05-20-2023 End: 05-20-2023 ambulatory SHAWNA BOGDAN [facility] Start: 05-19-2023 End: 05-19-2023 ambulatory SHAWNA BOGDAN [facility] Start: 05-06-2023 End: 05-06-2023 ambulatory SHAWNA EDWARG [facility] Start: 05-06-2023 End: 05-06-2023 Subsequent hospital visit by physician Rojas Altamirano [facility] Comment on above: Arrived Start: 05-05-2023 End: 05-05-2023 ambulatory SHAWNA EDWARG [facility] Start: 04-28-2023 End: 04-28-2023 ambulatory GAURAV SELLERS [facility] Start: 04-21-2023 End: 04-21-2023 [facility] Start: 04-20-2023 End: 04-20-2023 Emergency department patient visit [facility] ED Comment on above: Closed head injury, initial encounter (Primary Dx); Fall due to slipping on ice or snow, initial encounter; Acute cervical myofascial strain, initial encounter Start: 04-16-2023 ambulatory [facility] Facility :[facility] Start: 04-07-2023 End: 04-07-2023 [facility] Start: 03-27-2023 End: 03-27-2023 ambulatory ZAC MOOREAN [facility] Start: 03-24-2023 End: 03-24-2023 [facility] Start: 03-18-2023 Telephone encounter Jan Peterson [facility] Start: 03-18-2023 End: 03-18-2023 ambulatory NON STAFF [facility] [employer] Other Start: 03-18-2023 Non-patient / Non-visit MD Selvin Blank Work Phone: Replaced By [facility] G[facility] Work Phone: Start: 03-17-2023 End: 03-17-2023 ambulatory Jan Garg Other [employer] Other Start: 03-17-2023 Telephone encounter Jan Peterson [facility] Start: 03-16-2023 Encounter for genera l adult medical examination without abnormal findings [facility] Start: 03-16-2023 End: 03-16-2023 ambulatory [facility] Start: 03-10-2023 End: 03-10-2023 ambulatory [facility] Start: 03-10-2023 End: 03-10-2023 Subsequent hospital visit by physician Tamar Silveira PT [facility] Comment on above: Arrived Start: 03-05-2023 ([id number]) Weight Management f/u Gayathri Adams [facility] Start: 03-05-2023 End: 03-05-2023 ambulatory Gayathri Adams Other [employer] Other Start: 03-05-2023 Registered Recurring MD Monserrat Blank Work Phone: [facility] Work Phone: Start: 03-02-2023 End: 03-02-2023 Emergency department patient visit Sil Sullivan DO Work Phone: [facility] ED Comment on above: Constipation, unspec ified constipation type (Primary Dx) Start: 02-26-2023 End: 02-26-2023 ambulatory Jan Grag Other [employer] Other Start: 02-26-2023 Telephone encounter Jan Garg [facility] Start: 02-18-2023 End: 02-18-2023 ambulatory Jan Garg Other [employer] Other Start: 02-18-2023 Telephone encounter Jan Garg [facility] Start: 02-05-2023 End: 02-05-2023 ambulatory Jan Garg Other [employer] Other Start: 02-05-2023 Office outpatient vi sit 15 minutes Jan Garg [facility] Start: 01-15-2023 (FCCCWMNF/U) Weight Management f/u Gayathri Adams Replaced By [facility] Start: 01-15-2023 End: 01-15-2023 ambulatory Gayathri Adams Other [employer] Other Start: 01-07-2023 End: 01-07-2023 ambulatory Jan Billovanner Other [employer] Other Start: 01-07-2023 Office outpatient vi sit 15 minutes Jan Garg [facility] Start: 09-25-2022 End: 01-16-2023 ambulatory MUFFLE WORKER YUE GRANADO [facility] Start: 09-25-2022 End: 01-15-2023 Recurring YUE GRANADO [facility] Start: 09-17-2022 End: 09-17-2022 ambulatory Gayathri Adams Other [employer] Other Start: 09-17-2022 Telephone encounter Gayathri Adams [facility] Start: 08-28-2022 ([facility] RD FU) [facility] F/ 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 Tamar Sosa Replaced By [facility] Start: 08-28-2022 End: 08-28-2022 ambulatory Tamar Sosa Other [employer] Other Start: 07-29-2022 [facility] Weight Management f/u Gayathri Brooklynly Replaced By [facility] Start: 07-29-2022 End: 07-29-2022 ambulatory Gayathri Brooklynly Other [employer] Other Start: 05-20-2022 [facility] Weight Management f/u Agyathri Brooklynly Replaced By [facility] Start: 05-20-2022 End: 05-20-2022 ambulatory Gayathri Brooklynly Other [employer] Other Start: 05-19-2022 End: 05-19-[address] ROEL GARBER . Facility:[facility] Start: 05-07-2022 End: 05-08-[address] DOCTOR ARREOLA Facility:[facility] Start: 04-09-2022 End: 04-09-2022 ambulatory Gayathrikasia Adams Other [employer] Other Start: 04-09-2022 Telephone encounter [facility]ri [facility] Start: 04-08-2022 ([facility] WMNI) WMN Init ial Provider Tamar Sosa Replaced By [facility] Start: 04-08-2022 [facility] Weight Management f/u Gayathri Adams Replaced By [facility] Start: 04-08-2022 End: 04-08-2022 ambulatory Tamar Fitt Other [employer] Other Start: 02-26-2022 End: 02-26-2022 ambulatory Tamar Fitt Other [employer] Other Start: 02-26-2022 IBT FOR OBESITY GROU P 2-10 30M Tamar Sosa Replaced By [facility] Start: 02-25-2022 [facility] Weight Management f/u Gayathri Adams [facility] Start: 02-25-2022 End: 02-25-2022 ambulatory Gayathri Adams Other [employer] Other Start: 02-17-2022 End: 02-18-2022 ambulatory [facility] Facility:[facility] Start: 01-29-2022 End: 01-30-2022 ambulatory JOY Reis [facility] Facility:[facility] Start: 01-14-2022 [facility] Weight Management f/u Gayathri Adams Replaced By [facility] Start: 01-14-2022 End: 01-14-2022 ambulatory Gayathri Adams Other [employer] Other Start: 12-05-2021 End: 12-05-2021 ambulatory Gayathri Adams Other [employer] Other Start: 12-05-2021 Telephone encounter [facility] Start: 12-04-2021 End: 12-04-2021 ambulatory Gayathri Adams Other [employer] Other Start: 12-04-2021 Nutrition therapy [facility]athri [facility] Start: 10-29-2021 End: 10-29-2021 ambulatory Yo Blank Other [employer] Other Start: 10-29-2021 Patient encounter procedure Yo Blank [facility] Start: 10-22-2021 End: 10-22-2021 Emergency department patient visit Shawna Bogdan DO Work Phone: [facility] ED Comment on above: Acute diffuse otitis externa of left ear (Primary Dx) Start: 10-11-2021 End: 10-12-2021 Emergency department patient visit Daniel Adkins MD Work Phone: [facility] ED Comment on above: Pilonidal cyst (Prim romero Dx) Start: 11-21-2016 End: 11-26-2016 Ambulatory [facility] Facility:[facility] Procedures Date Procedure Procedure Detail Performing Clinician Start: 05-27-2024 MM TOMOSYNTHESIS SCR EENING BI Roel Shirlene DO Work Phone: Start: 05-27-2024 Mammography Roel Fazi o DO Work Phone: Start: 05-26-2024 Urnls dip stick/tabl et rgnt non-auto w/o micrscp Roel Shirlene DO Work Phone: Start: 05-26-2024 IGP,APTIMA HPV,AGE GDLN Roel Shirlene DO Work Phone: Start: 04-18-2024 MLR HEMOGLOBIN A1C Core y Shirlene DO Work Phone: Start: 04-07-2024 Gluc bld gluc mntr d ev cleared fda spec home use Cleo Zambrano MD Work Phone: Start: 03-09-2024 Streptococcus pyogen es culture Rory Driver SEMAPHORE OPERATOR-BC Work Phone: Start: 01-13-2024 Urinalysis microscopic only [...] in Cervix by Cyto stain Brittany Neville PARTS PULLER Work Phone: Start: 04-20-2023 Ct cervical spine w/ o contrast material M Octavio Urbina DIETETICS DIRECTOR - MUFFLE WORKER Work Phone: Start: 04-20-2023 Ct head/brain w/o co ntrast material M Octavio Urbina DIETETICS DIRECTOR - MUFFLE WORKER Work Phone: Start: 03-16-2023 Mammography Brittany yoo [employer]S P[employer]ER Work Phone: Start: 08-30-2016 Cholecystectomy YUE LOPEZ TERBrandyn Start: 01-03-2013 nasal surgery YUE ALVARENGA RS Tonsillectomy YUE GRANADO Plan of Treatment Date Care Activity Detail Author Start: 05-20-2027 Screening for malignant neoplasm of cervix [facility] Start: 05-24-2026 Screening for malignant neoplasm of cervix Pap Smear [facility] Start: 05-31-2025 End: 05-31-2025 Patient encounter procedure 05/31/2025 10:00 AM EDT Office Visit [facility] [address] [facility] [place] [place] [address] Roel Garber, DO [address] [place] [address] [facility] Start: 05-27-2025 Screening for malignant neoplasm of breast Mammogram [facility] Start: 03-16-2025 Screening for malignant neoplasm of breast Breast cancer screen ESTELLA ESPINOZA [facility] Start: 11-10-2024 End: 11-10-2024 Patient encounter procedure 11/10/2024 11:30 AM EDT Office Visit [facility] UR[facility]Y Part of [address] [place] [address] Karen Cotter, DIETETICS DIRECTOR - MUFFLE WORKER [address] [facility] [address] [place] [address] [address] [facility] Comment on above: 1 year [facility] Start: 08-04-2024 End: 08-04-2024 Patient encounter procedure 08/04/2024 10:30 AM EDT Office Visit [facility] [address] [place] [phone] Cleo Zambrano MD [address] [place] [address] [facility] Start: 08-03-2024 End: 08-03-2024 Patient encounter procedure 08/03/2024 8:40 AM EDT Office Visit [facility] [place] [address] [place] [phone] Brittany Neville NP [address] [place], [place] [facility] [place] Start: 06-10-2024 End: 06-10-2024 Patient encounter procedure 06/10/2024 10:45 AM EDT Office Visit [facility] [place] [address] [place] [phone] Mendez Cardoso DO [address] [place] [address] [facility] [place] Start: 05-26-2024 End: 07-26-2025 MG Breast - bilateral Screening Bilateral screening mammogram Imaging Routine Breast cancer screening by mammogram Expected: 05/26/2024 (Approximate), Expires: 07/26/2025 [facility] Work Phone: Comment on above: Expected: 05/26/2024 (Approximate), Expi res: 07/26/2025 Start: 05-26-2024 End: 05-26-2024 Patient encounter procedure 05/26/2024 11:00 AM EDT Office Visit [facility] [address] [facility] [place] [phone] Roel Garber DO [address] [facility] [address] [place] [place], [place] [phone] [facility] Start: 05-04-2024 End: 05-04-2024 Patient encounter procedure 05/04/2024 8:20 AM EST Office Visit [facility] [address] [place] [phone] Brittany Neville, PARTS PULLER [address] [place] [facility] Start: 04-28-2024 End: 04-28-2024 Patient encounter procedure 04/28/2024 10:30 AM EST Office Visit [facility] [place] [address] [place] [phone] Mendez Cardoso DO [address] [place] [address] [facility] [place] Start: 04-25-2024 End: 04-25-2024 Patient encounter procedure 04/25/2024 9:00 AM EST Office Visit [facility] [place] [address] [address] [place] [phone] Brittany Neville, PARTS PULLER [address] [place], [place] [phone] (work) [facility] [place] Start: 04-18-2024 End: 04-18-2025 C-peptide C-peptide Lab Routine Hormone imbalance Hormone disorder Expected: 04/18/2024 (Approximate), Expires: 04/18/2025 [facility] Comment on above: Expected: 04/18/2024 (Approximate), Expi res: 04/18/2025 Start: 04-18-2024 End: 04-18-2025 Cortisol free Cortisol, free Lab Routine Hormone imbalance Hormone disorder Expected: 04/18/2024 (Approximate), Expires: 04/18/2025 [facility] Comment on above: Expected: 04/18/2024 (Approximate), Expi res: 04/18/2025 Start: 04-18-2024 End: 04-18-2025 Glucose [Mass/volume] in Serum or Plasma Glucose, random Lab Routine Hormone imbalance Hormone disorder Expected: 04/18/2024 (Approximate), Expires: 04/18/2025 [facility] Comment on above: Expected: 04/18/2024 (Approximate), Expi res: 04/18/2025 Start: 04-18-2024 End: 04-18-2025 Insulin, total Insulin, total Lab Routine Hormone imbalance Hormone disorder Expected: 04/18/2024 (Approximate), Expires: 04/18/2025 [facility] Comment on above: Expected: 04/18/2024 (Approximate), Expi res: 04/18/2025 Start: 04-18-2024 End: 04-18-2025 Serotonin serum Serotonin serum Lab Routine Hormone imbalance Hormone disorder Expected: 04/18/2024 (Approximate), Expires: 04/18/2025 [facility] Comment on above: Expected: 04/18/2024 (Approximate), Expi res: 04/18/2025 Start: 04-18-2024 End: 04-18-2025 Thyroglobulin Thyroglobulin Lab Routine Hormone imbalance Hormone disorder Expected: 04/18/2024 (Approximate), Expires: 04/18/2025 [facility] Comment on above: Expected: 04/18/2024 (Approximate), Expi res: 04/18/2025 Start: 04-18-2024 End: 04-18-2025 Thyroglobulin Antibody Thyroglobulin Antibody Lab Routine Hormone imbalance Hormone disorder Expected: 04/18/2024 (Approximate), Expires: 04/18/2025 [facility] Comment on above: Expected: 04/18/2024 (Approximate), Expi res: 04/18/2025 Start: 04-18-2024 End: 04-18-2025 Thyrotropin [Units/volume] in Serum or Plasma [facility] Comment on above: Ordered: 04/18/2024 Expected: 04/18/2024 (Approximate), Expires: 04/18/2025 Start: 04-18-2024 End: 04-18-2024 Patient encounter procedure 04/18/2024 10:50 AM EST Office Visit [facility] OB [address] [place] [phone] Roel Garber DO [address] [place] [address] [facility] OB Start: 04-07-2024 End: 04-07-2025 25-hydroxyvitamin D3 [Mass/volume] in Serum or Plasma Vitamin D 25 hydroxy Total Lab Routine 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, unspecified whether penitentiary insulin use (CMS/HCC) Expected: 04/07/2024 (Approximate), Expires: 04/07/2025 [facility] Work Phone: Comment on above: Expected: 04/07/2024 (Approximate), Expi res: 04/07/2025 Start: 04-07-2024 End: 04-07-2025 Lipid 1996 panel - Serum or Plasma Lipid panel Lab Routine 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, unspecified whether penitentiary insulin use (CMS/HCC) Expected: 04/07/2024 (Approximate), Expires: 04/07/2025 [facility] Comment on above: Expected: 04/07/2024 (Approximate), Expi res: 04/07/2025 Start: 04-07-2024 End: 04-07-2025 Microalbumin/Creatinine panel in random Urine Microalbumin / creatinine urine ratio Lab Routine 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, 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 (CMS/HCC) Expected: 04/07/2024 (Approximate), Expires: 04/07/2025 [facility] Comment on above: Expected: 04/07/2024 (Approximate), Expi res: 04/07/2025 Start: 04-07-2024 End: 04-07-2025 Renal function panel Renal function panel Lab Routine 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, 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 ([facility]) Expected: 04/07/2024 (Approximate), Expires: 04/07/2025 [facility] Comment on above: Expected: 04/07/2024 (Approximate), Expi res: 04/07/2025 Start: 03-24-2024 End: 03-24-2024 Patient encounter procedure 03/24/2024 3:00 PM EST Office Visit [facility] [address] [place] [phone] Brittany Neville NP [address] [place] [address] [facility] Start: 03-17-2024 End: 03-17-2024 Patient encounter procedure 03/17/2024 9:20 AM EST Office Visit [facility] [address] [place] [address] Cleo Zambrano MD [address] [place] [address] [facility] Start: 03-16-2024 Screening for malignant neoplasm of breast Mammogram [facility] Start: 03-11-2024 End: 03-11-2024 Patient encounter procedure 03/11/2024 10:00 AM EST Office Visit [facility] ALCIRA [place] [address] [place] [phone] Mendez Cardoso DO [address] [place] [address] [facility] [place]IRA [place] Start: 03-09-2024 Group A Streptococcus Culture Group A Streptococcus Culture [facility] Start: 02-19-2024 End: 02-19-2024 Patient encounter procedure 02/19/2024 2:00 PM EST Office Visit [facility] [place] [address] [place] [address] Mendez Cardoso DO [address] [place] [address] [facility] [place] Start: 02-16-2024 End: 02-16-2024 Patient encounter procedure 02/16/2024 3:40 PM EST Office Visit [facility] [place] [address] [facility] [place] [address] Brittany Neville NP [address] [place], [place] [facility] Start: 02-09-2024 End: 02-09-2024 Patient encounter procedure 02/09/2024 11:15 AM EST Appointment [facility] Physical Therapy [address] [place], [place] [phone] Tamar Silveira, IRV[place] dry needling [facility] Comment on above: dry needling Start: 01-26-2024 End: 01-26-2024 Patient encounter procedure 01/26/2024 8:00 AM EST Appointment [facility] Physical Therapy [address] [place], [place] [phone] Tamar Silveira, PT dry needling [facility] Comment on above: dry needling Start: 01-13-2024 End: 01-13-2024 Patient encounter procedure 01/13/2024 8:15 AM EST Office Visit [facility] UROLOG[address] [place] [phone] Georges [place], PAJuan ManuelC [address] [place] [address] [address] [place] [address] [facility] Comment on above: incontinence Start: 12-29-2023 End: 12-29-2023 Patient encounter procedure 12/29/2023 9:00 AM EDT Appointment [facility] Physical Therapy [address] [place], [place] [phone] Tamar Silveira, PT NEEDLING [facility] Therapy Comment on above: NEEDLING Start: 12-15-2023 End: 12-15-2023 Patient encounter procedure 12/15/2023 9:00 AM EDT Appointment [facility] Physical Therapy [address] [place], [place] [phone] Tamar Silveira, PT NEEDLING [facility] Comment on above: NEEDLING Start: 12-01-2023 End: 12-01-2023 Patient encounter procedure 12/01/2023 9:45 AM EDT Appointment [facility] Physical Therapy [address] [place], [place] [phone] Tamar Silveira, PT NEEDLING [facility] Therapy Comment on above: NEEDLING Start: 11-01-2023 Influenza vaccination Influenza Vaccine (#1) [facility] Start: 10-01-2023 Influenza vaccination Flu vaccine (#1) [facility] Start: 09-01-2023 End: 09-01-2023 Patient encounter procedure 09/01/2023 10:30 AM EDT Appointment [facility] Physical Therapy [address] [place], [place] [phone] Osito Rowan [facility] Start: 08-26-2023 End: 08-26-2023 Patient encounter procedure 08/26/2023 2:30 PM EDT Appointment [facility] Physical Therapy [address] [place], [place] [phone] Kofi Villegas, PT [facility] Start: 08-18-2023 End: 08-18-2023 Patient encounter procedure 08/18/2023 9:45 AM EDT Appointment [facility] Physical Therapy [address] [place] [phone] Osito Rowan [facility] Start: 08-11-2023 End: 08-11-2023 Patient encounter procedure 08/11/2023 1:15 PM EDT Appointment [facility] Physical Therapy [address] [place], [place] [phone] Jan Olmstead, PT DRY NEEDLING [facility] Therapy Comment on above: DRY NEEDLING Start: 08-04-2023 End: 08-04-2023 Patient encounter procedure 08/04/2023 4:15 PM EDT Appointment [facility] Physical Therapy [address] [place], [place] [phone] Osito Rowan [facility] Start: 06-03-2023 End: 06-03-2023 Patient encounter procedure 06/03/2023 3:30 PM EDT Appointment [facility] Physical Therapy [address] [place], [place] [phone] Osito Rowan [facility] Start: 06-02-2023 End: 06-02-2023 Patient encounter procedure 06/02/2023 3:00 PM EDT Appointment [facility] Physical Therapy [address] [place], [place] [phone] Rebecca Skinner, PT DRY NEEDLING- dont move coordinates with son's appt [facility] Comment on above: DRY NEEDLING- dont move coordinates with son's appt Start: 05-23-2023 Hepatitis B vaccine (3 of 3 - Hep B Twinrix 3-dose series) Hepatitis B vaccine (3 of 3 - Hep B Twinrix 3-dose series) [facility] Start: 05-20-2023 End: 05-20-2023 Patient encounter procedure 05/20/2023 3:15 PM EDT Appointment [facility] Physical Therapy [address] [place] [phone] Rojas Altamirano PTA [facility] Start: 05-19-2023 End: 05-19-2023 Patient encounter procedure 05/19/2023 12:45 PM EDT Appointment [facility] Physical Therapy [address] [place] [phone] Rebecca Skinner, PT DRY NEEDLING- dont move [...] EST Appointment [facility] Physical Therapy [address] [place], [place] [phone] Rebecca Skinner, PT DRY NEEDLING [facility] Therapy Comment on above: DRY NEEDLING Start: 03-24-2023 End: 03-24-2023 Patient encounter procedure 03/24/2023 2:15 PM EST Appointment [facility] Physical Therapy [address] [place], [place] [phone] Rebecca Skinner, PT DRY NEEDLING [facility] Physical Therapy Comment on above: DRY NEEDLING Start: 03-19-2023 [facility] Start: 03-10-2023 End: 03-10-2023 Patient encounter procedure 03/10/2023 2:30 PM EST Appointment [facility] Physical Therapy [address] [place], [place] [phone] Rebecca Skinner, PT [facility] Start: 09-30-2022 Influenza vaccination Flu vaccine (#1) [facility] Start: 10-31-2021 Influenza vaccination Flu vaccine (#1) [facility] Start: 09-03-2021 DTaP/Tdap/Td vaccine (1 - Tdap) DTaP/Tdap/Td vaccine (1 - Tdap) [facility] Start: 2020 Lipid panel Lipids [facility] Start: 09-25-2015 Diabetes screen Diabetes screen [facility] Start: 2010 Screening for malignant neoplasm of cervix [facility] Start: 2001 Screening for malignant neoplasm of cervix Pap smear [facility] Start: 09-25-1999 DTaP/Tdap/Td vaccine (1 - Tdap) DTaP/Tdap/Td vaccine (1 - Tdap) [facility] Start: 1998 Hepatitis C screening Hepatitis C screen [facility] Start: 09-25-1995 HIV screening HIV screen [facility] Start: 1993 Varicella vaccine (1 of 2 - 13+ 2-dose series) Varicella vaccine (1 of 2 - 13+ 2-dose series) [facility] Start: 1992 Depression Screen Depression Screen [facility] Start: 1990 Lipid panel Lipids [facility] Start: 1981 Varicella vaccine (1 of 2 - 2-dose childhood series) Varicella vaccine (1 of 2 - 2-dose childhood series) [facility] Start: 03-27-1981 COVID-19 Vaccine (#1) COVID-19 Vaccine (#1) [facility] Start: 1980 Hepatitis B vaccine (1 of 3 - 3-dose series) Hepatitis B vaccine (1 of 3 - 3-dose series) [facility] DHEA-sulfate DHEA-sulfate Lab Routine Hormone imbalance Hormone disorder Ordered: 04/18/2024 [facility] Comment on above: Ordered: 04/18/2024 EKG 12 Lead EKG 12 Lead ECG Routine 01/13/2024 2:59 PM EST [facility] Estradiol Estradiol Lab Ro utine Hormone imbalance Hormone disorder Ordered: 04/18/2024 [facility] Work Phone: Comment on above: Ordered: 04/18/2024 Estrone Estrone Lab Rout ine Hormone imbalance Hormone disorder Ordered: 04/18/2024 [facility] Comment on above: Ordered: 04/18/2024 Ferritin [Mass/volum e] in Serum or Plasma Ferritin Lab Routine Hormone imbalance Hormone disorder Ordered: 04/18/2024 [facility] Comment on above: Ordered: 04/18/2024 Hemoglobin A1c/Hemoglobin.total in Blood Hemoglobin A1c Lab Routine Hormone imbalance Hormone disorder Ordered: 04/18/2024 [facility] Comment on above: Ordered: 04/18/2024 Progesterone Progesterone Lab Routine Hormone imbalance Hormone disorder Ordered: 04/18/2024 [facility] Comment on above: Ordered: 04/18/2024 Sex hormone binding globulin Sex hormone binding globulin Lab Routine Hormone imbalance Hormone disorder Ordered: 04/18/2024 [facility] Comment on above: Ordered: 04/18/2024 Streptococcus pyogen es [Presence] in Unspecified specimen by Organism specific culture [facility] T3, reverse T3, reverse Lab Routine Hormone imbalance Hormone disorder Ordered: 04/18/2024 [facility] Comment on above: Ordered: 04/18/2024 TESTOSTERONE, FREE TESTOSTERONE, FREE Lab Routine Hormone imbalance Hormone disorder Ordered: 04/18/2024 [facility] Comment on above: Ordered: 04/18/2024 Testosterone, free, total Testos terone, free, total Lab Routine Hormone imbalance Hormone disorder Ordered: 04/18/2024 [facility] Comment on above: Ordered: 04/18/2024 THIN PREP TIS PAP AN D HR HPV DNA THIN PREP TIS PAP AND HR HPV DNA Pathology and Cytology Routine Well woman exam with routine gynecological exam Ordered: 05/26/2024 [facility] Comment on above: Ordered: 05/26/2024 Thyroid peroxidase antibody Thyroid peroxidase antibody Lab Routine Hormone imbalance Hormone disorder Ordered: 04/18/2024 [facility] Comment on above: Ordered: 04/18/2024 Thyroxine (T4) free [Mass/volume] in Serum or Plasma T4, free Lab Routine Hormone imbalance Hormone disorder Ordered: 04/18/2024 [facility] Comment on above: Ordered: 04/18/2024 Triiodothyronine (T3 ) Free [Mass/volume] in Serum or Plasma T3, free Lab Routine Hormone imbalance Hormone disorder Ordered: 04/18/2024 [facility] Comment on above: Ordered: 04/18/2024 Vitamin D 1,25 dihydroxy Vitamin D 1,25 dihydroxy Lab Routine Hormone imbalance Hormone disorder Ordered: 04/18/2024 [facility] Comment on above: Ordered: 04/18/2024 Immunizations Immunization Date Immunization Notes Care Provider [facility] 12-07-2023 influenza, seasonal, injectable, preservative free Paula Sanderson MD Work Phone: [facility] 05-25-2023 hepatitis A and hepa titis B vaccine Paula Sanderson MD Work Phone: [facility] 12-22-2022 hepatitis A and hepa titis B vaccine Paula Sanderson MD Work Phone: [facility] 12-22-2022 Seasonal, quadrivale nt, recombinant, injectable influenza vaccine, preservative free Paula Sanderson MD Work Phone: [facility] 10-23-2023 influenza virus vacc ine, unspecified formulation Brittany Neville [employer] Work Phone: [facility] 06-23-2022 hepatitis A and hepa titis B vaccine Paula Sanderson MD Work Phone: [facility] 02-07-2022 Pneumococcal Conjuga te PCV 20 Paula Sanderson MD Work Phone: [facility] 12-23-2021 influenza, injectabl e, quadrivalent, preservative free Paula Sanderson MD Work Phone: [facility] 09-02-2021 TD(adult) unspecifie d formulation Paula Sanderson MD Work Phone: [facility] 12-24-2020 influenza, injectabl e, quadrivalent, preservative free Paula Sanderson MD Work Phone: [facility] 12-19-2019 influenza, injectabl e, quadrivalent, preservative free Paula Sanderson MD Work Phone: [facility] 12-19-2018 influenza, injectabl e, quadrivalent, preservative free Paula Sanderson MD Work Phone: [facility] 12-02-2017 influenza, injectabl e, quadrivalent, preservative free Paula Sanderson MD Work Phone: [facility] 12-02-2017 pneumococcal conjuga te vaccine, 13 valent Paula Sanderson MD Work Phone: [facility] 10-10-2016 influenza, seasonal, injectable, preservative free Paula Sanderson MD Work Phone: [facility] 12-19-2013 influenza virus vacc ine, live, attenuated, for intranasal use Paula Sanderson MD Work Phone: [facility] 12-03-2012 influenza virus vacc ine, whole virus Paula Sanderson MD Work Phone: [facility] 12-29-2011 influenza virus vacc ine, whole virus Paula Sanderson MD Work Phone: [facility] 12-23-2010 influenza virus vacc ine, whole virus Paula Sanderson MD Work Phone: [facility] 12-18-2008 influenza virus vacc ine, whole virus Paula Sanderson MD Work Phone: [facility] Healthcare Payers Date Payer Category Payer Self-pay [id number] 2022 Unknown 2013 Medicaid [employer] [place] [id number] 2013-Present [address] [place] [address] [id number] 2013 Medicaid (Managed Care) [facility] MEDICAID [id number] 1980 Unknown [id number] 2..840.1.826691.3.579.2. 593 1980 Unknown [id number] 2.16840.1.624877.3.579.2. 59 1980 Unknown [id number] 2.16840.1.051292.3.579.2. 59 1980 Unknown [id number] 2.16.840.1.920601.3.579.2. 593 1980 Unknown [id number] 2.16.840.1.009006.3.579.2. 727 1980 Unknown [id number] 2.16.840.1.164777.3.579.2. 1285 1980 Unknown [id number] 2.840.1.302682.3.579.2. 1285 1980 Unknown [id number] 2.16840.1.578887.3.579.2. 1285 1980 Unknown [id number] 2.840.1.282408.3.579.2. 1285 1980 Unknown [id number] 2.840.1.866309.3.579.2. 1285 1980 Unknown [id number] 2.840.1.009942.3.579.2. 1285 1980 Unknown [id number] 2.840.1.413463.3.579.2. 1285 1980 Unknown [id number] 2.0.1.625730.3.579.2. 1285 1980 Unknown [id number] 2.840.1.921517.3.579.2. 1285 1980 Unknown [id number] 2.0.1.597297.3.579.2. 1285 1980 Unknown [id number] 2.840.1.439103.3.579.2. 1285 1980 Unknown [id number] 2.0.1.327032.3.579.2. 1980 Unknown [id number] 2.840.1.505623.3.579.2. 1980 Unknown [id number] 2.840.1.778438.3.579.2. 1980 Unknown [id number] 2.840.1.415106.3.579.2. 1980 Unknown [id number] 2.840.1.476020.3.579.2. 1980 Unknown [id number] 2.840.1.278945.3.579.2. 1980 Unknown [id number] 2.16840.1.328945.3.579.2. 1980 Unknown [id number] 2.16840.1.095555.3.579.2. 1980 Unknown [id number] 2.16.840.1.286583.3.579.2. 1980 Unknown [id number] 2.840.1.920907.3.579.2. 1980 Unknown [id number] 2.840.1.823204.3.579.2. 1980 Unknown [id number] 2.840.1.167179.3.579.2. 1980 Unknown [id number] 2.840.1.702301.3.579.2. 1980 Unknown [id number] 2.840.1.754513.3.579.2. 1980 Unknown [id number] 2.840.1.356208.3.579.2. 1980 Unknown [id number] 2.840.1.552401.3.579.2. 1980 Unknown [id number] 2.840.1.411466.3.579.2. 1980 Unknown [id number] 2.840.1.008178.3.579.2. 1980 Unknown [id number] 2.840.1.685052.3.579.2. 1980 Unknown [id number] 2.840.1.063415.3.579.2. 1980 Unknown [id number] 2.840.1.910865.3.579.2. 1980 Unknown [id number] 2.840.1.081271.3.579.2. 1980 Unknown [id number] 2.16.840.1.259698.3.579.2. 1980 Unknown [id number] 2.16.840.1.251156.3.579.2. 1980 Unknown [id number] 2.16.840.1.643204.3.579.2. 1980 Unknown [id number] 2.16.840.1.444614.3.579.2. 1980 Unknown [id number] 2.16.840.1.375260.3.579.2. 1980 Unknown [id number] 2.16840.1.163285.3.579.2. 1980 Unknown [id number] 2.16840.1.120366.3.579.2. 1980 Unknown [id number] 2.16840.1.781126.3.579.2. 1980 Unknown [id number] 2.16840.1.878096.3.579.2. 1980 Unknown [id number] 2.16840.1.847165.3.579.2. 1980 Unknown [id number] 2.16840.1.512068.3.579.2. 1980 Unknown [id number] 2.16840.1.166212.3.579.2. 1980 Unknown [id number] 2.16.840.1.708242.3.579.2. 1980 Unknown [id number] 2.16840.1.083500.3.579.2. 1980 Unknown [id number] 2.16.840.1.478837.3.579.2. 1980 Unknown [id number] 2.16840.1.634289.3.579.2. 1980 Unknown [id number] 2.16.840.1.864461.3.579.2. 196 1980 Unknown [id number] 2.16.840.1.954604.3.579.2. 9 1980 Unknown [id number] 2.16.840.1.567981.3.579.2. 9 1980 Unknown [id number] 2.16.840.1.729259.3.579.2. 1258 1980 Unknown [id number] 2.16.840.1.169316.3.579.2. 9 1980 Unknown [id number] 2.16.840.1.436320.3.579.2. 1258 1980 Unknown [id number] 2.16.840.1.872995.3.579.2. 9 1980 Unknown [id number] 2.16.840.1.094301.3.579.2. 1259 1959 Medicaid [id number] Unknown [id number] 2.16.840.1.919222.3.579.2. 531 Unknown [id number] 2.16.840.1.022559.3.579.2. 531 Unknown [id number] 2.16.840.1.201233.3.579.2. 531 Social History Date Type Detail Facility Start: 09-02-2017 End: 05-21-2023 Tobacco smoking status [facility] Never smoked tobacco [employer] Start: 09-02-2017 End: 03-10-2023 Tobacco use and exposure Smokeless tobacco non-user [employer] Phone: Start: 10-11-2021 End: 01-13-2024 Alcohol intake Current non-drinker of alcohol (finding) [employer] Phone: Start: 1980 Sex Assigned At Not on file [facility] [employer] Phone: Start: 10-01-2021 End: 10-22-2021 Exposure to SARS-CoV-2 (event) Not sure [facility] Figure 1 Work Phone: Start: 10-11-2021 End: 05-10-[address] [facility] Tobacco smoking status Never [facility] Start: 10-11-2021 End: 05-10-2024 History of Social function [facility] Start: 1980 Sex Assigned At Female F [facility] How often to you hav e a drink containing alcohol? Never [facility] Figure 1 Start: 02-11-2024 End: 05-26-2024 Alcoholic beverage intake Lifetime non-drinker (finding) [facility] Start: 03-11-2024 Sex Patient sex un known (finding) [facility] Start: 06-02-2024 Sex Female (finding) [facility] Clinical Notes 10-22-2021 to 05-26-2024 Becky Silvestre, LAB NURSE - 05/26/2024 11:00 AM Arnold Cardoso, DO - 04/28/2024 10:30 AM Jasson Ribeiro, [facility] - 04/18/2024 10:50 AM ESTTelephone Encounter - Austin Perkins - 04/13/2024 1:29 PM EST Note Date & Type Note Facility 05-26-2024 History of Present illness Narrative Reason for Appointment: Patient ID: Karma Banegas is a 43 y.o. female who presents for Gynecologic Exam Patient presents today for Annual Exam. MEDICATIONS Current Outpatient Medications Medication Instructions albuterol HFA (Ventolin HFA) 90 mcg/act inhaler 1 puff, Every 4 hours PRN ascorbic acid (VITAMIN C) 500 mg, 2 times daily B Complex Vitamins (vitamin B complex) tablet 1 tablet, Daily cholecalciferol (VITAMIN D-3) 2,000 Units, Daily ciclopirox (Loprox) 0.77 % cream APPLY TO THE AFFECTED AREA(S) TWICE DAILY cyclobenzaprine (FLEXERIL) 10 mg, 3 times daily PRN diclofenac (VOLTAREN) 75 mg, 2 times daily PRN docusate sodium (COLACE) 300 mg, Oral, 3 times daily DULoxetine (CYMBALTA) 60 mg, Oral, 2 times daily, Do not crush or chew. empagliflozin (JARDIANCE) 25 mg, Oral, Daily famotidine (PEPCID) 40 mg, Daily ferrous sulfate 325 mg, Oral, Daily with breakfast fexofenadine (ROS) 180 mg, Daily FLUoxetine (PROZAC) 60 mg, Daily fluticasone (Flonase) 50 MCG/ACT nasal spray 1 spray, Every 24 hours gabapentin (Neurontin) 300 MG capsule 1 po 2-3 times a day. lamoTRIgine (LAMICTAL) 200 mg, Daily lansoprazole (PREVACID) 30 mg, Daily linaCLOtide (LINZESS) 290 mcg, Daily before breakfast lurasidone (LATUDA) 80 mg, Daily metoprolol succinate XL (Toprol-XL) 25 MG 24 hr tablet TAKE 1/2 (ONE-HALF) OF A TABLET BY MOUTH DAILY Multiple Vitamin (Tab-A-Karely) tablet 1 tablet, Daily mupirocin (Bactroban) 2 % ointment apply to left nose TWICE DAILY for 2 (TWO) weeks NEEDED naproxen (NAPROSYN) 500 mg, 2 times daily with meals Nexplanon 68 mg, Once pantoprazole (PROTONIX) 40 mg, Oral, Daily before breakfast, Do not crush, chew, or split. pioglitazone (ACTOS) 30 mg, Oral, Daily Probiotic Product (Align) capsule 1 capsule, Daily rosuvastatin (CRESTOR) 10 mg, Daily SUMAtriptan (Imitrex) 100 MG tablet TAKE 1 TABLET BY MOUTH ONCE DAILY NEEDED for FOR MIGRAINE traMADol (ULTRAM) 50 mg, Daily PRN traZODone [...] Noted Acute cholecystitis 09/15/2016 Anemia 03/10/2023 Asthma ([facility]/HCC) 03/10/2023 Axillary lymphadenopathy 05/10/2020 Bilateral foot pain 03/10/2023 Cervical disc displacement 09/21/2017 Chronic rhinitis 03/10/2023 Disc displacement, lumbar 10/11/2018 Diverticulitis 03/10/2023 Intervertebral disc 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 12/02/2022 Lumbosacral spondylosis without myelopathy 07/22/2018 Obesity 03/10/2023 Primary osteoarthritis, left ankle and foot 03/10/2023 PTSD (post-traumatic stress disorder) ([facility]) 06/16/2018 Recurrent epistaxis 03/10/2023 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 ([facility]) 11/10/2017 Well woman exam with routine gynecological exam 05/25/2023 Type 2 diabetes mellitus with hyperglycemia ([facility]) 02/11/2024 Vitamin D deficiency, unspecified 02/11/2024 Hyperlipidemia, unspecified ([facility]) 02/11/2024 Resolved Ambulatory Problems Diagnosis Date Noted Hot flashes 03/10/2023 Postoperative abscess 09/28/2016 Open wound of toe without complication 03/10/2023 Disorder of sacrum 01/29/2023 Macromastia 10/08/2023 Mass of upper outer quadrant of right breast 06/02/2023 Symptomatic mammary hypertrophy 06/02/2023 Attention deficit hyperactivity disorder ([facility]/HCC) 04/27/2024 Circadian rhythm sleep disorder, shift work type 04/27/2024 Impulse control disorder ([facility]) 04/27/2024 Mixed bipolar affective disorder, moderate ([facility]) 04/27/2024 Past Medical History: Diagnosis Date Bipolar disorder ([facility]) Body mass index (BMI) of 36.0 to 36.9 Cholecystitis 2016 Controlled type 2 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, without long-term current use of insulin ([facility]) Gastritis 2017 GERD (gastroesophageal reflux disease) Hyperlipemia (CMS/[facility]) Insertion of Nexplanon Iron deficiency anemia Kidney stones OCD (obsessive compulsive disorder) (CMS/[facility]) Seasonal allergies Umbilical hernia 2017 Vitamin D deficiency HISTORY PAST MEDICAL HISTORY SOCIAL HISTORY Past Medical History: Diagnosis Date Anemia Attention deficit hyperactivity disorder (CMS/HCC) 04/27/2024 Bipolar disorder (CMS/[facility]) Body mass index (BMI) of 36.0 to 36.9 Cholecystitis 2017 Acute/chronic Chronic rhinitis Circadian rhythm sleep disorder, shift work type 04/27/2024 Controlled type 2 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, without long-term current use of insulin ([facility]) Disorder of sacrum 01/29/2023 Gastritis 2017 GERD (gastroesophageal reflux disease) Hyperlipemia ([facility]) Impulse control disorder ([facility]) 04/27/2024 Insertion of Nexplanon Iron deficiency anemia Kidney stones Macromastia 10/08/2023 Mass of upper outer quadrant of right breast 06/02/2023 Mixed bipolar affective disorder, moderate (CMS/HCC) 04/27/2024 OCD (obsessive compulsive disorder) ([facility]) Open wound of toe without complication 03/10/2023 PTSD (post-traumatic stress disorder) ([facility]) Recurrent epistaxis Seasonal allergies Symptomatic mammary hypertrophy 06/02/2023 Type 2 diabetes mellitus with hyperglycemia ([facility]) Umbilical hernia 2017 Vitamin D deficiency Social [...] SYSTEMS Review of Systems: Review of Systems All other systems reviewed and are negative. OBJECTIVE Objective: Physical Exam Constitutional: Appearance: Normal appearance. She is well-developed. Genitourinary: Vulva normal. Breasts: Breasts are soft. Right: Normal. Left: Normal. Cardiovascular: Rate and Rhythm: Normal rate and regular rhythm. Pulmonary: Effort: Pulmonary effort is normal. Breath sounds: Normal breath sounds. Abdominal: General: Bowel sounds are normal. There is no distension. Palpations: Abdomen is soft. Tenderness: There is no abdominal tenderness. There is no guarding or rebound. Musculoskeletal: General: No swelling. Normal range of motion. Right lower leg: No edema. Left lower leg: No edema. Neurological: Mental Status: She is alert and oriented to person, place, and time. Skin: General: Skin is warm and dry. Psychiatric: Mood and Affect: Mood normal. Behavior: Behavior normal. Vitals and nursing note reviewed. Exam conducted with a compressed gas plant worker present. Vitals: Estimated body mass index is 40.39 kg/m as calculated from the following: Height as of 05/10/24: 5' 3 . Weight as of this encounter: 228 lb. BP: 128/78 No LMP recorded. Patient has had an implant. ASSESSMENT & PLAN ICD-10-CM 1. Well woman exam with routine gynecological exam Z01.419 THIN PREP TIS PAP AND HR HPV DNA POCT urinalysis dipstick manually resulted 2. Breast cancer screening by mammogram Z12.31 Bilateral screening mammogram Bilateral screening mammogram Annual: Patient presents today for an annual exam. Patient states she is doing well and has no complaints. Pap was obtained without difficulty and patient given mammogram order to have scheduled/obtained. Discussed labs with patient and we will give her the [facility] packet and she will return to office and we will send labs and packet to them and he will come up with recommendations for specialized cream. Orders Placed This Encounter Procedures Bilateral screening mammogram POCT urinalysis dipstick manually resulted Follow Up: Patient is to return in one year for annual unless needed otherwise. Documented by Becky Silvestre LPN on behalf of: Roel Garber DO documented in this encounter [facility] 04-28-2024 History of Present illness Narrative Subjective [...] complication, without long-term current use of insulin ([facility]) Disorder of sacrum 01/29/2023 Gastritis 2017 GERD (gastroesophageal reflux disease) Hyperlipemia ([facility]) Impulse control disorder ([facility]) 04/27/2024 Insertion of Nexplanon Iron deficiency anemia Kidney stones Macromastia 10/08/2023 Mass of upper outer quadrant of right breast 06/02/2023 Mixed bipolar affective disorder, moderate ([facility]) 04/27/2024 OCD (obsessive compulsive disorder) ([facility]) Open wound of toe without complication 03/10/2023 PTSD (post-traumatic stress disorder) ([facility]) Recurrent epistaxis Seasonal allergies Symptomatic mammary hypertrophy 06/02/2023 Type 2 diabetes mellitus with hyperglycemia ([facility]) Umbilical hernia 2016 Vitamin D deficiency Current Outpatient Medications: albuterol [...] No Food Insecurity (10/05/2023) Received from [facility] Screening Within the past 12 [...] Patient encouraged to follow up with her sweat band sewer regarding the significant evidence of laryngopharyngeal reflux noted on endoscopy documented in this encounter [facility] 04-18-2024 History of Present illness Narrative Reason [...] Noted Acute cholecystitis 09/15/2016 Anemia 03/10/2023 Asthma (CMS/HCC) 03/10/2023 Axillary lymphadenopathy 05/10/2020 Bilateral foot pain 03/10/2023 Cervical disc displacement 09/21/2017 Chronic rhinitis 03/10/2023 Disc displacement, lumbar 10/11/2018 Diverticulitis 03/10/2023 Intervertebral disc 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 12/02/2022 Lumbosacral spondylosis without myelopathy 07/22/2018 Obesity 03/10/2023 Primary osteoarthritis, left ankle and foot 03/10/2023 PTSD (post-traumatic stress disorder) ([facility]) 06/16/2018 Recurrent epistaxis 03/10/2023 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 ([facility]) 11/10/2017 Well woman exam with routine gynecological exam 05/25/2023 Type 2 diabetes mellitus with hyperglycemia ([facility]) 02/11/2024 Vitamin D deficiency, unspecified 02/11/2024 Hyperlipidemia, unspecified ([facility]) 02/11/2024 Resolved Ambulatory Problems Diagnosis Date Noted Hot flashes 03/10/2023 Postoperative abscess 09/28/2016 Open wound of toe without complication 03/10/2023 Disorder of sacrum 01/29/2023 Macromastia 10/08/2023 Mass of upper outer quadrant of right breast 06/02/2023 Symptomatic mammary hypertrophy 06/02/2023 Past Medical History: Diagnosis Date Bipolar disorder ([facility]) Body mass index (BMI) of 36.0 to 36.9 Cholecystitis 2017 Controlled type 2 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, without long-term current use of insulin ([facility]) Gastritis 2017 GERD (gastroesophageal reflux disease) Hyperlipemia ([facility]) Insertion of Nexplanon Iron deficiency anemia Kidney stones OCD (obsessive compulsive disorder) ([facility]) Seasonal allergies Umbilical hernia 2017 Vitamin D deficiency HISTORY PAST MEDICAL HISTORY SOCIAL HISTORY Past Medical History: Diagnosis Date Anemia Bipolar disorder ([facility]) Body mass index (BMI) of 36.0 to 36.9 Cholecystitis 2017 Acute/chronic Chronic rhinitis Controlled type 2 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, without long-term current use of insulin ([facility]) Disorder of sacrum 01/29/2023 Gastritis 2017 GERD (gastroesophageal reflux disease) Hyperlipemia ([facility]) Insertion of Nexplanon Iron deficiency anemia Kidney stones Macromastia 10/08/2023 Mass of upper outer quadrant of right breast 06/02/2023 OCD (obsessive compulsive disorder) ([facility]) Open wound of toe without complication 03/10/2023 PTSD (post-traumatic stress disorder) ([facility]) Recurrent epistaxis Seasonal allergies Symptomatic mammary hypertrophy 06/02/2023 Type 2 diabetes mellitus with hyperglycemia ([facility]/HCC) Umbilical hernia 2017 Vitamin D deficiency Social [...] Roel Garber DO documented in this encounter [facility] 04-13-2024 Telephone encounter Note PA needed for mounjaluke. Thank you! [facility] 04-13-2024 Miscellaneous Notes PA needed for mounbela. Thank you! documented in this encounter [facility] 04-07-2024 History of Present illness Narrative Karma [...] yet. HPI: 06/2020 New patient sent from [facility] for uncontrolled diabetes. A1c of 9.3 in [...] Medical History: Diagnosis Date Anemia Bipolar disorder ([facility]) Body mass index (BMI) of 36.0 to 36.9 Cholecystitis 2017 Acute/chronic Chronic rhinitis Controlled type 2 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, without long-term current use of insulin ([facility]) Disorder of sacrum 01/29/2023 Gastritis 2017 GERD (gastroesophageal reflux disease) Hyperlipemia ([facility]) Insertion of Nexplanon Iron deficiency anemia Kidney stones Macromastia 10/08/2023 Mass of upper outer quadrant of right breast 06/02/2023 OCD (obsessive compulsive disorder) ([facility]) Open wound of toe without complication 03/10/2023 PTSD (post-traumatic stress disorder) ([facility]) Recurrent epistaxis Seasonal allergies Symptomatic mammary hypertrophy 06/02/2023 Type 2 diabetes mellitus with hyperglycemia ([facility]) Umbilical hernia 2016 Vitamin D deficiency Past Surgical History: Procedure [...] 2 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, unspecified whether penitentiary insulin use ([facility]) - POCT glycosylated hemoglobin (Hb A1C) docked [...] exercise reviewed with the patient Hyperlipemia, mixed ([facility] [facility] Class 2 severe obesity due to excess calories with serious comorbidity and body mass index (BMI) of 39.0 to 39.9 in adult ([facility]) Follow up in about 4 months (around 08/05/2024). documented in this encounter [facility] 02-16-2024 Telephone encounter Note Pt would like ot know if you can try to get the ozempic approved again. She's gained 20lbs on trulicity. [facility] 02-16-2024 Miscellaneous Notes Pt would like ot know if you can try to get the ozempic approved again. She's gained 20lbs on trulicity. documented in this encounter [facility] 02-09-2024 History of Present illness Narrative [facility] Inpatient/Observation/Outpatient Rehabilitation Date: 02/09/2024 Patient Name: Karma Whitehead [x] Inpatient Acute/Observation [] Outpatient : 1980 02/16/24 Plan of Care/Recert ends [x] Pt no showed for scheduled appointment Patient was called and reported she is not feeling well. She reports she has upcoming cardiac testing. She reports she will call to reschedule when she's feeling better. Jan Olmstead, PT, DPT, OCS, Cert. DN Date: 02/09/2024 documented in this encounter [facility] 01-13-2024 Hospital Discharge instructions Lisette Junior DO - 01/13/2024 5:40 PM EST Increase your fluid intake. Follow-up with your doctor to discuss your medications especially the gabapentin and cyclobenzaprine which can certainly make you feel tired and groggy all the time. The following attachments cannot be sent through Care Everywhere.Dizziness (Qatari)documented in this encounter [facility] 11-30-2023 Telephone encounter Note I called [...] believes that the device is MRI compatible. [facility] 11-30-2023 Miscellaneous Notes I called [...] Inspire device. Her BMI is 35.96, will [place] allow this BMI Her HST is from 04/2022, does need this updated Will she be able to have MRIs If all of this is ok we will send for Inspire consult We will need to call her with an update documented in this encounter [facility] 11-30-2023 Telephone encounter Note Please call Dr. Brito office and ask the following questions in regards to Inspire device. Her BMI is 35.96, will [place] allow this BMI Her HST is from 04/2022, does need this updated Will she be able to have MRIs If all of this is ok we will send for Inspire consult We will need to call her with an update [facility] 11-30-2023 History of Present illness Narrative Images [...] Medical History: Diagnosis Date Anemia Bipolar disorder ([facility]) Body mass index (BMI) of 36.0 to 36.9 Cholecystitis 2016 Acute/chronic Chronic rhinitis Controlled type 2 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, without long-term current use of insulin ([facility]) Gastritis 2017 GERD (gastroesophageal reflux disease) Hyperlipemia ([facility]) Insertion of Nexplanon Iron deficiency anemia Kidney stones OCD (obsessive compulsive disorder) ([facility]) Open wound of toe without complication 03/10/2023 PTSD (post-traumatic stress disorder) [place] Recurrent epistaxis Seasonal allergies Umbilical hernia 2016 Vitamin D deficiency Past Surgical History: Procedure [...] on. She understands the risk of stroke, [place] and without wearing it. She states she [...] She did switch to a provider in [place]. They did change her zanaflex and mobic [...] and see if BMI of 36 with [place] is feasible for Inspire device, if it [...] was counseled on the risks of stroke, [place], and sudden with JADON, along with the need for compliance with the CPAP/BiPAP treatment. Return to clinic: 3 months documented in this encounter [facility] 10-20-2023 History of Present illness Narrative [facility] Outpatient Physical Therapy Daily Note Patient: Karma Whitehead : 1980 CSN #: [id number] Referring Physician: Shawna Dudley DO Date: 10/20/2023 Treatment Diagnosis: LBP, cervical spine pain Onset Date: 02/18/23 PT Insurance Information: [facility] Total # of Visits Approved: 32 [...] the cervical area and her LB area.-met Coal Handler Goals Time Frame for Half-Way Goals : 6 visits Coal Handler Goal 1: Pt will be independent and compliant with exercise while maintaining improved posture 50% of the time - not met Half-Way Goal 2: Pt will be able to perform full cervical ROM without increase complaints of baseline pain with initiation to demonstrate imporved control of pain -NOT MET: continued cervical spine pain. Coal Handler Goal 3: Pt will report 40% improvement in overall complaints and improved tolerance to her job tasks - 40% improved. Coal Handler Goal 4: Pt kvng UE strength will be 5/5 without increasing pain complaints to assist in tolerance of lifting and carrying -PARTIALLY MET 4+/5 grossly. Minutes Tracking: Time In: 944 Time Out: 1030 Minutes: 45 Timed Code Treatment Minutes: 43 Minutes Jan Olmstead PT, DPT, OCS, Cert. DN Date: 10/20/2023 documented in this encounter [facility] 09-22-2023 History of Present illness Narrative [...] her next appt. documented in this encounter [facility] 08-26-2023 History of Present illness Narrative [facility] Outpatient Physical Therapy Daily Note Patient: Karma Whitehead : 1980 CSN #: [id number] Referring Physician: Shawna Dudley DO Date: 08/26/2023 Diagnosis: Z76.89 - Persons encountering health services in other specified circumstances Treatment Diagnosis: pain in cervical and LB Onset Date: 02/18/23 PT Insurance Information: [place] [facility] Total # of Visits Approved: [...] the cervical area and her LB area.-met Half-Way Goals Time Frame for Half-Way Goals : 6 visits Half-Way Goal 1: Pt will be independent and compliant with exercise while maintaining improved posture 50% of the time. Half-Way Goal 2: Pt will be able to perform full cervical ROM without increase complaints of baseline pain with initiation to demonstrate imporved control of pain. Half-Way Goal 3: Pt will report 40% improvement in overall complaints and improved tolerance to her job tasks. Minutes Tracking: Time In: 1430 Time Out: 1500 Minutes: 30 Timed Code Treatment Minutes: 29 Minutes Kofi Villegas PT, DPT Date: 08/26/2023 documented in this encounter [facility] 08-21-2023 History of Present illness Narrative Physical Therapy Disregard the no show note on 08/17. This was added in error. [facility] Outpatient Physical Therapy Daily Note Patient: Karma Whitehead : 1980 CSN #: [id number] Referring Physician: Shawna Dudley DO Date: 08/21/2023 Treatment Diagnosis: pain in cervical and LB Onset Date: 02/18/23 PT Insurance Information: [employer] Total # of Visits Approved: 24 Per [...] the cervical area and her LB area. Half-Way Goals Time Frame for Half-Way Goals : 6 visits Half-Way Goal 1: Pt will be independent and compliant with exercise while maintaining improved posture 50% of the time. Half-Way Goal 2: Pt will be able to perform full cervical ROM without increase complaints of baseline pain with initiation to demonstrate imporved control of pain. Half-Way Goal 3: Pt will report 40% improvement in overall complaints and improved tolerance to her job tasks. Coal Handler Goal 4: Pt kvng UE strength will be 5/5 without increasing pain complaints to assist in tolerance of lifting and carrying. Minutes Tracking: Time In: 1045 Time Out: 1116 Minutes: 31 Timed Code Treatment Minutes: 29 Minutes Jan Olmstead PT, DPT Date: 08/21/2023 documented in this encounter [facility] 08-11-2023 History of Present illness Narrative [facility] Outpatient Physical Therapy Daily Note Patient: Karma Whitehead : 1980 CSN #: [id number] Referring Physician: Shawna Dudley DO Date: 08/11/2023 Diagnosis: Z76.89 - Persons encountering health services in other specified circumstances Treatment Diagnosis: pain in cervical and LB Onset Date: 02/18/23 PT Insurance Information: [employer] Plan Total # of Visits Approved: 24 [...] the cervical area and her LB area. Half-Way Goals Time Frame for Half-Way Goals : 6 visits Half-Way Goal 1: Pt will be independent and compliant with exercise while maintaining improved posture 50% of the time. Coal Handler Goal 2: Pt will be able to perform full cervical ROM without increase complaints of baseline pain with initiation to demonstrate imporved control of pain. Half-Way Goal 3: Pt will report 40% improvement in overall complaints and improved tolerance to her job tasks. Half-Way Goal 4: Pt kvng UE strength will be 5/5 without increasing pain complaints to assist in tolerance of lifting and carrying. Minutes Tracking: Time In: 1330 Time Out: 1400 Minutes: 30 Timed Code Treatment Minutes: 28 Minutes Jan Olmstead PT, DPT Date: 08/11/2023 documented in this encounter [facility] 07-14-2023 History of Present illness Narrative Physical Therapy [facility] Inpatient/Observation/Outpatient Rehabilitation Date: 07/14/2023 Patient [...] does not require skilled services due to: Therapist/Replenishment Buyer will attempt to see this patient, at our earliest opportunity. Filomena Raphael Date: 07/14/2023 documented in this encounter [facility] [employer] [facility] 04-20-2023 Hospital Discharge instructions Precious Urbina APRN - CNP - 04/20/2023 1:50 PM EST Increase fluid Tylenol Motrin for cough Continue home medications The following attachments cannot be sent through Care Everywhere.Head Injury: Closed: General Info (Qatari)Cervical Strain (Qatari)[facility] note Encounter Date Diagnosis Assessment [...] was counseling done by myself, Rhina ROBERTSON. [employer] Other 01-01-2024 Hospital Discharge instructions* Discharge Instructions* Sil Sullivan DO - 03/02/2023 7:49 PM EST Please follow-up with your GI doctor, trial enema at home, return to the ER for worsening abdominalpain, inability to pass gas, or nausea, vomiting * Attachments The following attachments cannot be sent through Care Everywhere. * Constipation ([place]) [facility]* Encounter Date Diagnosis Assessment Notes Treatment Notes Treatment Clinical Notes Jan, Constipation, unspecified constipation type (ICD-10 - K59.00) Jan, Constipation (ICD-10 - K59.00) [employer] Other 12-07-2023 Evaluation note* Encounter Date Diagnosis [...] R10.9) Jan, Rectal bleed (ICD-10 - K62.5) [employer] Other 11-16-2023 Evaluation note* Encounter Date Diagnosis [...] was counseling done by myself, Rhina ROBERTSON. [employer] Other 11-08-2023 Evaluation note* Encounter Date Diagnosis [...] HAVE PATIENT START DOCUSATE 3 CAPSULES DAILY. [employer] Other 06-29-2023 Evaluation note* Encounter Date Diagnosis Assessment Notes Treatment Notes Treatment Clinical Notes Jul, Obesity (ICD-10 - E66.9) Jul, BMI 34.0-34.9,adult (ICD-10 - Z68.34) Jul, Other Summary of Visi t: (A) discussed continuing to work on small goals until stress decreases and she has the energy to increase goals (B) discussed healhtier choices at [place]- food blog reviewed (C) reviewed food storage tips for keeping produce fresh longer Patient set the following goals: - NEW: continue to choose sugar free beverages- not reviewed [employer] Other 05-30-2023 Evaluation note* Encounter Date Diagnosis [...] was counseling done by myself, Rhina ROBERTSON. [employer] Other 03-21-2023 Evaluation note* Encounter Date Diagnosis [...] was counseling done by myself, Rhina ROBERTSON. [employer] Other 02-07-2023 Evaluation note* Encounter Date Diagnosis [...] set the following goals: not reviewed today [employer] Other 02-07-2023 Evaluation note* Encounter Date Diagnosis [...] was counseling done by myself, Rhina ROBERTSON. [employer] Other 12-28-2022 Evaluation note* Encounter Date Diagnosis [...] patient set personal goal using given handout. [employer] Other 12-27-2022 Evaluation note* Encounter Date Diagnosis [...] was counseling done by myself, Rhina ROBERTSON. [employer] Other 12-01-2022 NotePROCEDURE: XR ANKLE LT MIN [...] Electronically authenticated by: ONEL CLARK Date: 2022-01-29 22:30[facility]12-01-2022 NotePROCEDURE: XR ANKLE LT MIN 3 [...] Electronically authenticated by: ONEL CLARK Date: 2022-01-29 22:30[facility]11-15-2022 Evaluation note* Encounter Date Diagnosis Assessment [...] was counseling done by myself, Rhina ROBERTSON. [employer] Other 10-05-2022 Evaluation note* Encounter Date Diagnosis [...] was counseling done by myself, Rhina ROBERTSON. [employer] Other 08-30-2022 Evaluation note* Encounter Date Diagnosis Assessment Notes Treatment Notes Treatment Clinical Notes Sep, Fatty liver (ICD-10 - K76.0) ENCOURAGED WEIGHT LOSS Sep, Obesity (BMI 30-39.9) (ICD-10 - E66.9) [employer] Other 08-23-2022 Hospital Discharge instructions* Discharge Instructions* Stanley Almonte PA-C - 10/22/2021 2:03 PM EDT Follow-up with primary care doctor 7 to 10 days for reevaluation. Take Motrin 800 mg as directed with food. Start eardrops left ear as directed. Promptly return to emergency department for new, changing or worsening of symptoms or other concerns. [facility] in [facility] Phone: evaluation + Plan note No data available for this section [facility] Diagnosis Pilonidal cyst- Primary Pilonidal cyst without mention of abscess documented in this encounter [employer] Work Phone: evaluation note* Diagnosis Acute diffuse otitis externa of left ear- Primary documented in this encounter [employer] Work Phone: evaluation noteNo InformationNort [employer] Other Evaluation note* Diagnosis Constipation, unspecified constipation type- Primary documented in this encounter [facility] Help [facility] WellnessaluAppside noteNo assessment information available [facility] Work Phone: Evaluation note* Diagnosis Closed head injury, initial encounter- Primary Fall due to slipping on ice or snow, initial encounter Acute cervical myofascial strain, initial encounter documented in this encounter [facility] Family Help & Wellnessaluation note* Diagnosis Onset Date Resolution Status ADHD acute BMI 36.0-36.9,adult acute Constipation acute Diabetes mellitus with hyperglycemia acute Fatty liver acute IBS (irritable bowel syndrome) acute Obesity acute Shifting sleep-work schedule, affecting sleep acute Constipation acute Elevated liver function tests acute Fatty liver acute IBS (irritable bowel syndrome) acute [facility] Work Phone: Evaluation note* Diagnosis Dizziness- Primary Dizziness and giddiness documented in this encounter [facility]* Diagnosis JADON (obstructive sleep apnea)- Primary Obstructive sleep apnea (adult) (pediatric) Tension headache Chronic bilateral low back pain, unspecified whether sciatica present Paresthesias Disturbance of skin sensation [facility] Diagnosis JADON (obstructive sleep apnea)- Primary Obstructive sleep apnea (adult) (pediatric) [facility]* Diagnosis Chronic rhinitis [facility]* Diagnosis 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, 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 ([facility])- Primary Vitamin D deficiency Weight gain Other symptoms concerning nutrition, metabolism, and development Encounter for dietary consultation Hyperlipemia, mixed ([facility]) Mixed hyperlipidemia Class 2 severe obesity due to excess calories with serious comorbidity and body mass index (BMI) of 39.0 to 39.9 in adult ([facility]) documented [facility]* Diagnosis Hormone imbalance Hormone disorder Unspecified endocrine disorder Toenail fungus documented in this encounter [facility]* Diagnosis Obstructive sleep apnea- Primary Obstructive sleep apnea (adult) (pediatric) Intolerance of continuous positive airway pressure (CPAP) ventilation Body mass index 34.0-34.9, adult Body Mass Index 34.0-34.9, adult documented in this encounter [facility]* Diagnosis Well woman exam with routine gynecological exam Routine gynecological examination Breast cancer screening by mammogram documented in this encounter [facility]* Diagnosis Onset Date Resolution Status Admit Date Constipation acute June 02, 025 9:26am Fatty liver acute June 02 9:26am IBS (irritable bowel syndrome) acute June 02, 2024 9:26am [facility] Work Phone: [employer]ish[employer] general Narrative - Reported* Type Description Date Medical History PTSD Medical History DIVERTICULITOUS Surgical History 2 BACK INJECTIONS 2014 Surgical History LEFT ANKLE 2002 Surgical History CHOLECYSTECTOMY Hospitalization History SEE ABOVE [employer] Other [facility] general Narrative - Reported* Type Description Date Medical History PTSD Medical History DIVERTICULITOUS Medical History bipolar Medical History ADHD Surgical History 2 BACK INJECTIONS 2014 Surgical History LEFT ANKLE 2002 Surgical History CHOLECYSTECTOMY Surgical History nasal surgery Hospitalization History SEE ABOVE [employer] Other Hismt[facility] general Narrative - Reported* Type Description Date Medical History PTSD Medical History DIVERTICULITOUS Medical History bipolar Medical History ADHD Surgical History 2 BACK INJECTIONS 2014 Surgical History LEFT ANKLE 2002 Surgical History CHOLECYSTECTOMY Surgical History nasal surgery Surgical History right Rotator surgery 05-15-22 Hospitalization History SEE ABOVE [employer] Other HisCureeo general Narrative - Reported* Type Description Date Medical History PTSD Medical History DIVERTICULITOUS Medical History bipolar Medical History ADHD Medical History rotator cuff tear Surgical History 2 BACK INJECTIONS 2014 Surgical History LEFT ANKLE 2002 Surgical History CHOLECYSTECTOMY Surgical History nasal surgery Surgical History right Rotator surgery 05-15-22 Hospitalization History SEE ABOVE [employer] Other Histmzr general Narrative - Reported* Type Description Date Medical History PTSD Medical History DIVERTICULITOUS Medical History bipolar Medical History ADHD Medical History rotator cuff tear Surgical History 2 BACK INJECTIONS 2014 Surgical History LEFT ANKLE 2002 Surgical History CHOLECYSTECTOMY Surgical History nasal surgery Surgical History right Rotator surgery 05-15-22 Surgical History Neck injections/root burnt 12/31 Hospitalization History SEE ABOVE [employer] Other History general Narrative - Reported* Type Description Date Medical History PTSD Medical History DIVERTICULITOUS Medical History bipolar Medical History ADHD Medical History rotator cuff tear Surgical History 2 BACK INJECTIONS 2014 Surgical History LEFT ANKLE 2002 Surgical History CHOLECYSTECTOMY Surgical History nasal surgery Surgical History right Rotator surgery 05-15-22 Surgical History Neck injections/root burnt 12/31 Hospitalization History SEE ABOVE Hospitalization History [place]- c onstipation 03-02-2023 [employer] Other Hospital Discharge instructions* Attachments The following attachments cannot be sent through Care Everywhere. * Pilonidal Abscess ([place]) [facility] Work Phone: Hospital Discharge instructions No data available for this section [facility] No data available for this section [facility] HospitalReason for referral (narrative)* Consultation (Routine) - Pending Review Specialty Diagnoses / Procedures Referred By Karla t Referred To Contact Otolaryngology Diagnoses JADON (obstructive sleep apnea) Procedures [place] OFFICE/OUTPATIENT [facility] MDM 60 MINUTES Brittany Neville NP [address] [facility] [address] [place] [address] Referral ID Status Reason Start Date Expiration Date Visits Requested Visits Authorized [id number] Pending Review Specialty Services Required 11/30/2023 05/28/20[address] Brito for Inspire device. [facility] Summary Purpose Family History Relationship Condition Age [...] Unknown Unknown Diabetes mellitus Unknown Advance Directives Advance Directive Response Recorded Date/ Time Advance [...] 9:31am Unknown March 09, 2024 9: 36pm Chief Complaint Admit Date Unknown March 09, 2024 9: 36pm 6 month follow up June 02, 2024 9:26 am Reason for Visit Admit Date Constipation June 02, 2024 9:26 am Fatty liver June 02, 2024 9:26 am IBS (irritable bowel syndrome) May 9:26am Additional Source Comments INFORMATION SOURCE (unrecogn ized section and content) DATE CREATED AUTHOR 08/26/2017 [facility] DATE CREATED AUTHOR AUTHOR'S ORGANIZ ATION 05/30/2022 [facility] DATE CREATED AUTHOR AUTHOR'S ORGANIZ ATION 01/18/2023 [facility] DATE CREATED AUTHOR AUTHOR'S ORGANIZ ATION 06/04/2023 [facility] DATE CREATED AUTHOR AUTHOR'S ORGANIZ ATION 10/10/2023 [facility] DATE CREATED AUTHOR AUTHOR'S ORGANIZ ATION 12/22/2023 [facility] DATE CREATED AUTHOR AUTHOR'S ORGANIZ ATION 02/12/2024 [facility] DATE CREATED AUTHOR AUTHOR'S ORGANIZ ATION 03/15/2024 [facility] DATE CREATED AUTHOR AUTHOR'S ORGANIZ ATION 05/16/2024 [facility] DATE CREATED AUTHOR AUTHOR'S ORGANIZ ATION 05/27/2024 [facility] EPIC Reason for Visit (unrecogniz ed [...] Hormones Reason Comments Sleep Apnea Inspire Consult Reason Comments Gynecologic Exam Ordered Prescriptions (unrec ognized section and content) Prescription Sig Dispensed Refills Start Date End Da te clindamycin (CLEOCIN) 150 MG capsule Take 3 capsules by mouth in the morning and 3 capsules at noon and 3 capsules before bedtime. Do all this for 10 days. 90 capsule 0 10/12/2021 10/22/2021 Prescription Sig Dispensed Refills Start Date End Da te [id number] ortisone (CORTISPORIN) 3.5-70596-[address] 4 drops into the [...] Care Teams (unrecognized sec tion and content) Mineralogy Professor Relationship Specialty Start Date End Date Shawna Dudley DO [address] [place] [address] PCP - General Family Medicine 10/12/21 Mineralogy Professor Relationship Specialty Start Date End Date Shawna Dudley DO [address] [place] [address] PCP - General Family Medicine 10/12/21 Mineralogy Professor Relationship Specialty Start Date End Date Shawna Dudley, DO [address] [place] [address] PCP - General Family Medicine 10/12/21 Mineralogy Professor Relationship Specialty Start Date End Date Shawna Dudley DO [address] [place] [address] PCP - General Family Medicine 10/12/21 Team [...] Care Provider Active Start: March 18, 2023 Mineralogy Professor Relationship Specialty Start Date End Date Shawna Dudley DO [address] [place] [address] PCP - General Family Medicine 10/12/21 Mineralogy Professor Relationship Specialty Start Date End Date Shawna Dudley, DO [address] [place] [address] PCP - General Family Medicine 10/12/21 Team Status: Active Member Role Status Dates KIRAN ContrerasP- Primary Care Provider Active Team Status: Inactive Member Role Status Dates Gayathri Adams APRN Attending Provider Active Start: May 21, 2023 End: May 21, 2023 Rory Driver [facility] Primary Care Provider Active Start: May 21, 2023 End: May 21, 2023 Team Status: Inactive Member Role Status Dates Jan Garg APRN Attending Provider Active Start: May 21, 2023 End: May 21, 2023 Rory Driver [facility] Primary Care Provider Active Start: May 21, 2023 End: May 21, 2023 Mineralogy Professor Relationship Specialty Start Date End Date Shawna Dudley, DO [address] [facility] [place] [id number] PCP - [facility] 10/12/21 Mineralogy Professor Relationship Specialty Start Date End Date Shawna Dudley, DO [address] [place] [address] PCP - [facility] 10/12/21 Mineralogy Professor Relationship Specialty Start Date End Date Loreto Mcneal DIETETICS DIRECTOR - PARTS PULLER [address] [place] [address] PCP - General 11/11/23 Mineralogy Professor Relationship Specialty Start Date End Date Loreto Mcneal DIETETICS DIRECTOR - PARTS PULLER [address] [facility] [place] [address] PCP - General 11/11/23 Mineralogy Professor Relationship Specialty Start Date End Date Loreto Mcneal DIETETICS DIRECTOR - PARTS PULLER [address] [facility] [place] [address] PCP - General 11/11/23 Mineralogy Professor Relationship Specialty Start Date End Date Loreto Mcneal DIETETICS DIRECTOR - PARTS PULLER [address] [place] [address] PCP - General 11/11/23 Mineralogy Professor Relationship Specialty Start Date End Date Shawna Dudley DO [address] [place], [place] [id number] PCP - General Family Medicine 04/14/22 Key Andrea NP [address] [place] [address] Referring Physician Family Medicine 08/13/23 Mineralogy Professor Relationship Specialty Start Date End Date Key Andrea NP [address] [place] [address] Referring Physician Family Medicine 08/13/23 Mineralogy Professor Relationship Specialty Start Date End Date Key Andrea NP [address] [place] [address] Referring Physician Family Medicine 08/13/23 Mineralogy Professor Relationship Specialty Start Date End Date Key Andrea NP [address] [place] [address] Referring Physician Family Medicine 08/13/23 Mineralogy Professor Relationship Specialty Start Date End Date Shawna Dudley DO [address] [place], [place] [id number] PCP - General Family Medicine 04/14/22 Key Andrea NP [address] [place] [address] Referring Physician Family Medicine 08/13/23 Team Status: Inactive Member Role Status Dates Rory Driver , [facility] Primary Care Provider Active Start: January 21, 2024 End: January 21, 2024 Myrtle Eryn , RD LD Attending Provider Active Start: January 21, 2024 End: January 21, 2024 Team Status: Inactive Member Role Status Dates Rory Driver [facility] Primary Care Provider Active Start: March 09, 2024 End: March 09, 2024 Mio Marroquin DO Attending Provider Active S tart: March 09, 2024 End: March 09, 2024 Mineralogy Professor Relationship Specialty Start Date End Date Shawna Dudley, [address] [place] [address] PCP - General Family Medicine 04/14/22 Key Andrea, J OANN [address] [place] [address] Referring Physician Family Medicine 08/13/23 Mineralogy Professor Relationship Specialty Start Date End Date Shawna Dudley, [address] [place] [address] PCP - General Family Medicine 04/14/22 Key Andrea, PARTS PULLER [address] [place] [address] Referring Physician Family Medicine 08/13/23 Mineralogy Professor Relationship Specialty Start Date End Date Shawna Duldey, [address] [place] [address] PCP - General Family Medicine 04/14/22 Key Andrea, PARTS PULLER [address] [place] [address] Referring Physician Family Medicine 08/13/23 Mineralogy Professor Relationship Specialty Start Date End Date Shawna Dudley, [address] [place] [address] PCP - General Family Medicine 04/14/22 Key Andrea, PARTS PULLER [address] [place] [address] Referring Physician Family Medicine 08/13/23 Mineralogy Professor Relationship Specialty Start Date End Date Shawna Dudley DO [address] [place] [address] PCP - General Family Medicine 04/14/22 Key Andrea, PARTS PULLER [address] [place] [address] Referring Physician Family Medicine 08/13/23 Mineralogy Professor Relationship Specialty Start Date End Date Shawna Dudley DO [address] [place] [address] PCP - General Family Medicine 04/14/22 Key Andrea, PARTS PULLER [address] [place] [address] Referring Physician Family Medicine 08/13/23 Mineralogy Professor Relationship Specialty Start Date End Date Shawna Dudley DO [address] [place] [address] PCP - General Family Medicine 04/14/22 Key Andrea, PARTS PULLER [address] [place] [address] Referring Physician Family Medicine 08/13/23 Laila Santos DO [address] [place] [address] Referring Physician Neurology 05/10/24 Mineralogy Professor Relationship Specialty Start Date End Date Shawna Dudley DO [address] [place] [address] PCP - General Family Medicine 04/14/22 Key Andrea NP [address] [place] [address] Referring Physician Family Medicine 08/13/23 Laila Santos DO [address] [place] [address] Referring Physician Neurology 05/10/24 Team Status: Active Member Role Status Dates Rory Driver [facility] Primary Care Provider Active Start: April 04, 2024 Matt Flores DO Attending Provider Active Sta rt: April 04, 2024 Team Status: Inactive Member Role Status Dates Rory Driver [facility] Primary Care Provider Active Start: June 02, 2024 End: June 02, 2024 Jan Garg APRN Attending Provider Active Start: June 02, 2024 End: June 02, 2024 Goals (unrecognized section and content) Goals [...] BE BASED ON THE PRIMARY CLINICAL RECORDS. [facility] [employer] [facility]. provides no warranty or guarantee of the accuracy or completeness of information in this document.
[2024-06-04 11:54] VITALS: BP 119/93; PULSE 100; TEMP 36.9; O2SAT 100; BMI 40.7
[2024-06-04] MEDS: KETOROLAC TROMETHAMINE 60 MG/2 ML VIAL IM (12:29)
[2024-06-04] MEDS: LIDOCAINE 5% PATCH 1 PATCH TOPICAL (12:32)
--- NOTE | 2024-06-04 13:12 | ED.GENADUL1 ---
HPI HPI - General Adult General Chief complaint: Extremity Injury, Lower Stated complaint: FALL/ LEG PAIN Time Seen by Provider: 06/04/24 12:03 Source: patient Mode of arrival: walk-in Limitations: no limitations History of Present Illness HPI narrative: The patient is coming to the ER with a work injury, she tripped over a tote at work hurting both her shins bilaterally in addition to her right knee. She did have a history of chronic back pain but she also fell down her back. The patient had no head injury no loss of consciousness The patient was able to walk into the ER but with pain No incontinence of urine or stool Related Data Home Medications ?Medication ?Instructions ?Recorded ?Confirmed Bifidobacterium infantis 4 mg 4 mg PO DAILY 10/24/23 05/09/24 capsule (Align (B.infantis)) ascorbic acid (vitamin C) 500 mg 500 mg PO BID 10/24/23 05/09/24 tablet (Vitamin C) ciclopirox 0.77 % topical cream 1 applic topical Q12H 10/24/23 05/09/24 duloxetine 60 mg capsule,delayed 60 mg PO DAILY 10/24/23 05/09/24 release empagliflozin 25 mg tablet 25 mg PO DAILY 10/24/23 05/09/24 (Jardiance) famotidine 40 mg tablet 40 mg PO DAILY 10/24/23 05/09/24 fluoxetine 60 mg tablet 60 mg PO DAILY 10/24/23 05/09/24 gabapentin 300 mg capsule 300 mg PO Q8H 10/24/23 05/09/24 lamotrigine 200 mg tablet 200 mg PO DAILY 10/24/23 05/09/24 lurasidone 120 mg tablet 120 mg PO DAILY 10/24/23 05/09/24 multivitamin with folic acid 400 1 tab PO DAILY 10/24/23 05/09/24 mcg tablet (Daily-Karely (with folic acid)) pioglitazone 30 mg tablet 30 mg PO DAILY 10/24/23 05/09/24 rosuvastatin 10 mg tablet 10 mg PO DAILY 10/24/23 05/09/24 sumatriptan succinate 100 mg tablet 100 mg PO Q2H PRN migraine headache 10/24/23 05/09/24 trazodone 50 mg tablet 50 mg PO DAILY 10/24/23 05/09/24 vitamin B complex 1 tab PO Q24H 10/24/23 05/09/24 albuterol sulfate 0.63 mg/3 mL 0.63 mg inhalation TID PRN 11/16/23 05/09/24 solution for nebulization bronchospasm albuterol sulfate 90 mcg/actuation 2 inh inhalation QID PRN shortness 11/16/23 05/09/24 aerosol inhaler (Proventil HFA) of breath or wheezing biotin injectioin .every other week 11/16/23 fluticasone propionate 50 1 spray intranasal DAILY PRN 11/16/23 05/09/24 mcg/actuation nasal allergy symptoms spray,suspension (24 Hour Allergy Relief) invizia 11/16/23 rizatriptan 10 mg tablet (Maxalt) See Rx Instructions PO .COMPLEX 11/16/23 05/09/24 ferrous sulfate 325 mg (65 mg 325 mg PO DAILY 01/08/24 05/09/24 iron) tablet (FeroSul) docusate sodium 100 mg capsule 300 mg PO DAILY 01/11/24 05/09/24 linaclotide 290 mcg capsule 290 mcg PO DAILY 01/11/24 05/09/24 (Linzess) cholecalciferol (vitamin D3) 125 125 mcg PO DAILY 03/31/24 05/09/24 mcg (5,000 unit) tablet (Vitamin D3) fexofenadine 180 mg tablet 180 mg PO DAILY 03/31/24 05/09/24 lisdexamfetamine 70 mg capsule 70 mg PO QAM 03/31/24 05/09/24 (Vyvanse) metoprolol succinate 25 mg 12.5 mg PO DAILY 03/31/24 05/09/24 tablet,extended release 24 hr Previous Rx's ?Medication ?Instructions ?Recorded diclofenac sodium 75 mg 75 mg PO BID PRN pain #60 tabs 11/16/23 tablet,delayed release cyclobenzaprine 10 mg tablet See Rx Instructions .Route 03/10/24 .COMPLEX PRN muscle spasm #90 tabs ondansetron 4 mg disintegrating 4 mg PO Q6H PRN nausea and 03/31/24 tablet vomiting #12 tabs gabapentin 300 mg capsule See Rx Instructions .Route 05/03/24 .COMPLEX #180 caps gabapentin 300 mg capsule See Rx Instructions .Route 05/04/24 .COMPLEX #180 caps Allergies Allergy/AdvReac Type Severity Reaction Status Date / Time cephalexin (From Keflex) Allergy Intermediate Rash Verified 05/09/24 07:27 citalopram (From Celexa) Allergy Intermediate Rash Verified 05/09/24 07:27 metformin Allergy Intermediate Nausea Verified 05/09/24 07:27 Opioid HPI Opioid Management Most Recent Opioid Data: Last Pain Scale 8 06/04/24 12:29 06/04/24 Last MAR Pain Assessment 06/04/24 12:29 Ur Phencyclidine Scrn Negative (NEGATIVE) 10/24/23 05:14 10/24/23 Review of Systems ROS Status of ROS 10 or more systems reviewed and unremarkable except as noted in history and below [facility] Medical History (Updated 06/04/24 @ 13:53 by Irene Mao MD) Heartburn ?R12 - Heartburn (ICD-10) Acid reflux ?K21.9 - Gastro-esophageal reflux disease without esophagitis (ICD-10) ASD (atrial septal defect) ?Q21.10 - Atrial septal defect, unspecified (ICD-10) ADHD ?F90.9 - Attention-deficit hyperactivity disorder, unspecified type (ICD-10) Bipolar affect, depressed ?F31.30 - Bipolar disorder, current episode depressed, mild or moderate severity, unspecified (ICD-10) Anemia ?D64.9 - Anemia, unspecified (ICD-10) Low back pain ?M54.50 - Low back pain, unspecified (ICD-10) Osteoarthritis ?M19.90 - Unspecified osteoarthritis, unspecified site (ICD-10) Carpal tunnel syndrome ?G56.00 - Carpal tunnel syndrome, unspecified upper limb (ICD-10) Obesity ?E66.9 - Obesity, unspecified (ICD-10) Diabetes ?E11.9 - 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s (ICD-10) Sleep apnea ?G47.30 - Sleep apnea, unspecified (ICD-10) Asthma ?J45.909 - Unspecified asthma, uncomplicated (ICD-10) High cholesterol ?E78.00 - Pure hypercholesterolemia, unspecified (ICD-10) Surgical History (Updated 05/04/24 @ 14:46 by Sil Madera) History of nasal surgery ?Z98.890 - Other specified postprocedural states (ICD-10) History of ankle surgery ?Z98.890 - Other specified postprocedural states (ICD-10) History of tonsillectomy and adenoidectomy ?Z90.89 - Acquired absence of other organs (ICD-10) H/O shoulder surgery ?Z98.890 - Other specified postprocedural states (ICD-10) History of cholecystectomy ?Z90.49 - Acquired absence of other specified parts of digestive tract (ICD-10) Social History Little interest or pleasure in doing things: not at all Feeling down, depressed, or hopeless: not at all Exam Narrative Exam Narrative: Nurses notes and vital signs reviewed and patient is not hypoxic. General: Well-appearing and in no apparent distress. Skin: Warm, dry, no pallor noted. No rash. Head: Normocephalic, atraumatic. Neck: Supple, non-tender. Back: No midline thoracic. Intervertebral tenderness at the lower lumbar spine although not induced with palpation but mostly subjective Musculoskeletal: normal ROM, no calf or popliteal tenderness, mild edema in the chin bilaterally at the mid of the tibia and fibula mostly in the right side than the left with mild tenderness, the patient have a right knee tenderness also on examination but she still have manage of movement. No significant effusion on evaluation and no ecchymosis Constitutional Vital Signs, click to edit/add: Last Vital Signs Temp 98.4 F 06/04/24 11:54 Pulse 100 H 06/04/24 11:54 Resp 18 06/04/24 11:54 BP 119/93 H 06/04/24 11:54 Pulse Ox 100 06/04/24 11:54 O2 Del Method Room Air 06/04/24 11:54 Course Vital Signs Vital signs: Vital Signs Temperature 98.4 F 06/04/24 11:54 Pulse Rate 100 H 06/04/24 11:54 Respiratory Rate 18 06/04/24 11:54 Blood Pressure 119/93 H 06/04/24 11:54 Pulse Oximetry 100 06/04/24 11:54 Oxygen Delivery Method Room Air 06/04/24 11:54 Temperature 98.4 F 06/04/24 11:54 Pulse Rate 100 H 06/04/24 11:54 Respiratory Rate 18 06/04/24 11:54 Blood Pressure 119/93 H 06/04/24 11:54 Pulse Oximetry 100 06/04/24 11:54 Oxygen Delivery Method Room Air 06/04/24 11:54 Medical Decision Making MDM Narrative Medical decision making narrative: The patient x-rays of the lumbar spine the tibia and fibula bilaterally in addition to the right knee showed no acute significant pathology [place] wrap applied and the patient was provided with lidocaine patch in the ER She already have Voltaren at home she was provided Toradol in the ER Patient wanted to go back to work today because they are short and I explained to her that she is okay to go back to work The patient is to follow up with primary care physician in next 2-3 days or to return to the emergency department should any of the signs or symptoms worsen or new symptoms develop. The patient agrees with the following Diagnosis and Treatment plan and the patient will be discharged home. Discharge Plan Discharge Chief Complaint: Extremity Injury, Lower Clinical Impression: Contusion of leg, Fall, Back pain Patient Disposition: Home, Self-Care Time of Disposition Decision: 13:52 Condition: Good Prescriptions / Home Meds: No Action ascorbic acid (vitamin C) [Vitamin C] 500 mg tablet 500 mg PO BID Align (B.infantis) 4 mg capsule 4 mg PO DAILY ciclopirox 0.77 % cream 1 applic TOPICAL Q12H duloxetine 60 mg capsule,delayed release(DR/EC) 60 mg PO DAILY Jardiance 25 mg tablet 25 mg PO DAILY famotidine 40 mg tablet 40 mg PO DAILY fluoxetine 60 mg tablet 60 mg PO DAILY gabapentin 300 mg capsule 300 mg PO Q8H lamotrigine 200 mg tablet 200 mg PO DAILY lurasidone 120 mg tablet 120 mg PO DAILY multivitamin with folic acid [Daily-Karely (with folic acid)] 400 mcg tablet 1 tab PO DAILY pioglitazone 30 mg tablet 30 mg PO DAILY rosuvastatin 10 mg tablet 10 mg PO DAILY sumatriptan succinate 100 mg tablet 100 mg PO Q2H PRN (Reason: migraine headache) trazodone 50 mg tablet 50 mg PO DAILY Rx Instructions: HS vitamin B complex Tablet 1 tab PO Q24H diclofenac sodium 75 mg tablet,delayed release (DR/EC) 75 mg PO BID PRN (Reason: pain) Qty: 60 2RF rizatriptan [Maxalt] 10 mg tablet See Rx Instructions .ROUTE .COMPLEX Rx Instructions: take 1 tab at onset of headache; if no relief may repeat 1 tab after at least 2 hrs; max = 3 tabs/24 hr albuterol sulfate [Proventil HFA] 90 mcg/actuation HFA aerosol inhaler 2 inh inhalation QID PRN (Reason: shortness of breath or wheezing) fluticasone propionate [24 Hour Allergy Relief] 50 mcg/actuation spray,suspension 1 spray intranasal DAILY PRN (Reason: allergy symptoms) Rx Instructions: administer into each nostril albuterol sulfate 0.63 mg/3 mL solution for nebulization 0.63 mg inhalation TID PRN (Reason: bronchospasm) biotin injectioin .every other week invizia ferrous sulfate [FeroSul] 325 mg (65 mg iron) tablet 325 mg PO DAILY cyclobenzaprine 10 mg tablet See Rx Instructions .ROUTE .COMPLEX PRN (Reason: muscle spasm) Qty: 90 2RF Rx Instructions: 10MG PO AM 20MG PO HS cholecalciferol (vitamin D3) [Vitamin D3] 125 mcg (5,000 unit) tablet 125 mcg PO DAILY fexofenadine 180 mg tablet 180 mg PO DAILY lisdexamfetamine [Vyvanse] 70 mg capsule 70 mg PO QAM metoprolol succinate 25 mg tablet extended release 24 hr 12.5 mg PO DAILY ondansetron 4 mg tablet,disintegrating 4 mg PO Q6H PRN (Reason: nausea and vomiting) Qty: 12 0RF gabapentin 300 mg capsule See Rx Instructions .ROUTE .COMPLEX Qty: 180 0RF Rx Instructions: 2 300MG CAPSULES TID gabapentin 300 mg capsule See Rx Instructions .ROUTE .COMPLEX Qty: 180 0RF Rx Instructions: 2 300MG CAPSULES TID #180 docusate sodium 100 mg capsule 300 mg PO DAILY Linzess 290 mcg capsule 290 mcg PO DAILY Print Language: Romanian Instructions: Contusion in Adults (ED), Fall Prevention (ED) Referrals: Loreto Mcneal NP [Primary Care Provider] - 1 week Discharge Date/Time: 06/04/24 14:18
== END 2024-06-04 14:18 | disposition home or self-care (01) ==
PROVIDERS: Emergency Provider Emergency Medicine; PCP Nurse Practitioner Family
DX: S80.12XA Contusion of left lower leg, initial encounter (principal); S80.11XA Contusion of right lower leg, initial encounter; W19.XXXA Unspecified fall, initial encounter; M54.9 Dorsalgia, unspecified
CPT/HCPCS: 72100; 73562; 73590; 96372; 99284; J1885

== ENCOUNTER 2024-06-13 16:48 | Outpatient (OUT) | payer OTHER, SELFPAY ==
[2024-06-13 17:04] LABS: Basophils Percent Auto 0.3 % (0.2-2.0); Eosinophils Absolute Auto 0.1 10^3/uL (0.0-0.7); Eosinophils Percent Auto 1.3 % (0.9-7.0); Hematocrit 41.2 % (36.0-48.0); Hemoglobin 13.5 g/dL (12.0-16.0); Immature Granulocytes Abs Auto 0.03 10^3/uL (0.00-0.03); Immature Granulocytes Pct Auto 0.3 % (0.0-0.5); Lymphocytes Absolute Auto 2.4 10^3/uL (1.2-3.8); Mean Corpuscular HGB Conc 32.8 g/dL (29.9-35.2); Mean Corpuscular Hemoglobin 28.5 pg (26.7-34.0); Mean Corpuscular Volume 86.9 fL (81.0-99.0); Mean Platelet Volume 11.1 fL (9.5-13.5); Monocytes Absolute Auto 0.4 10^3/uL (0.3-0.8); Neutrophils Absolute Auto 5.6 10^3/uL (1.4-6.5); Neutrophils Percent Auto 65.1 % (43.0-75.0); Platelet Count 308 10^3/uL (150-450); Red Blood Count 4.74 10^6/uL (4.20-5.40); Red Cell Distribution Width 13.5 % (11.0-15.0); White Blood Count 8.7 10^3/uL (4.0-11.0)
[2024-06-13 17:18] LABS: Alanine Aminotransferase 70 U/L (14-59); Albumin Level 3.5 g/dL (3.4-5.0); Alkaline Phosphatase 90 U/L (46-116); Anion Gap 12.2; Aspartate Amino Transferase 38 U/L (15-37); BUN Creatinine Ratio 17.9; Bilirubin Total 0.3 mg/dL (0.2-1.0); Calcium 8.7 mg/dL (8.5-10.1); Carbon Dioxide 25.5 mmol/L (21.0-32.0); Chloride 105 mmol/L (98-107); Estimated GFR (African America >60 (>=60 mL/min/1.73m^2); Estimated GFR (Non-African Ame >60 (>=60 mL/min/1.73m^2); Globulin 3.5 g/dL; Glucose 154 mg/dL (74-106); Potassium 3.7 mmol/L (3.5-5.1); Sodium 139 mmol/L (136-145)
[2024-06-13 18:00] LABS: Percent Iron Saturation 16.9 %
[2024-06-15 03:08] LABS: Vitamin B12 350 pg/mL (232-1245)
== END 2024-06-13 16:49 | disposition home or self-care (01) ==
LOC: LAB 16:49
PROVIDERS: PCP Nurse Practitioner Family; Visit Provider Internal Medicine Hematology & Oncology
DX: D64.9 Anemia, unspecified (principal); D50.9 Iron deficiency anemia, unspecified; K90.9 Intestinal malabsorption, unspecified; Z15.09 Genetic susceptibility to other malignant neoplasm
CPT/HCPCS: 36415; 80053; 82306; 82607; 82728; 83540; 83550; 85025

== ENCOUNTER 2024-06-14 07:41 | Outpatient (RCR) | payer OTHER, SELFPAY | END 2024-06-15 08:19 | disposition home or self-care (01) | LOC: HEMC 07:41 | PROVIDERS: PCP Nurse Practitioner Family; Visit Provider Internal Medicine Hematology & Oncology | DX: D50.9 Iron deficiency anemia, unspecified (principal); K90.9 Intestinal malabsorption, unspecified; Z15.09 Genetic susceptibility to other malignant neoplasm; D64.9 Anemia, unspecified; Z90.49 Acquired absence of other specified parts of digestive tract; K21.9 Gastro-esophageal reflux disease without esophagitis; M79.10 Myalgia, unspecified site; R00.0 Tachycardia, unspecified; G47.30 Sleep apnea, unspecified; Z86.16 Personal history of COVID-19 | CPT/HCPCS: G0463 ==

== ENCOUNTER 2024-06-27 07:48 | Day surgery (SDC) | payer OTHER, SELFPAY ==
[2024-06-27 08:29] VITALS: BP 144/85; PULSE 112; TEMP 36.7; O2SAT 98
[2024-06-27 08:33] LABS: Glucometer 106 mg/dL (74-106)
[2024-06-27] MEDS: LIDOCAINE HCL 2% 400 MG/20 ML MDV INJ (08:58)
[2024-06-27] MEDS: BUPIVACAINE HCL 0.25% PF 25 MG/10 ML VIAL 6 ML INJ (08:58)
[2024-06-27 08:59] VITALS: BP 150/77; PULSE 106; O2SAT 97
[2024-06-27 09:00] VITALS: BP 143/85; PULSE 103; O2SAT 98
--- NOTE | 2024-06-27 09:02 | W.PM.PROCNOT ---
Date of procedure: 06/27/24 Pre-op diagnosis: Pain due to cervical spondylosis without myelopathy Post-op diagnosis: same as pre-op Procedure: Procedure: Bilateral C4-5, 5-6 medial branch block Medications: Bupivacaine 0.25% 6cc The patient was seen and examined in the preoperative holding area.? The informed consent was obtained and placed on the chart.? The patient was brought to the medical procedure unit and placed in the prone position.? A timeout was completed verifying correct patient, procedure site, positioning, plan, and special equipment.? Using aseptic technique, the needle was placed at left C4.? Under direct fluoroscopic visualization, a Quincke tip needle was advanced to the midpoint of the waist of the articular pillar at the respective medial branch segment. The above-mentioned injectate was placed in a 1 mL aliquot proceeded by negative aspiration.? The needle was removed.? The procedure was completed at all left C5, 6. The same procedure, at the same levels, was then completed on the right side. Insertion site was covered.? Patient was taken to the postprocedural recovery area and monitored for an appropriate length of time before found suitable for discharge in the accompaniment of a responsible adult. Anesthesia: Local Surgeon: Ugo Bourgeois Pathology: none sent Condition: stable Disposition: no change
== END 2024-06-27 09:06 | disposition home or self-care (01) ==
LOC: SURGOUT 07:50
PROVIDERS: PCP Nurse Practitioner Family; Visit Provider Anesthesiology
DX: M47.812 Spondylosis without myelopathy or radiculopathy, cervical region (principal); E11.8 Type 2 diabetes mellitus with unspecified complications; Z79.85 Long-term (current) use of injectable non-insulin antidiabetic drugs
CPT/HCPCS: 36415; 64490; 64491; 82948; J0665

== ENCOUNTER 2024-06-30 10:22 | Emergency (ER) | payer OTHER, SELFPAY ==
[2024-06-30 10:32] VITALS: BP 110/79; PULSE 108; TEMP 36.7; O2SAT 95; BMI 39.0
--- NOTE | 2024-06-30 11:09 | ED.GENADUL1 ---
HPI HPI - General Adult General Chief complaint: Extremity Injury, Lower Stated complaint: FALL/ RIGHT ANKLE AND RIGHT WRIST PAIN Time Seen by Provider: 06/30/24 10:26 Source: patient Mode of arrival: Wheelchair Limitations: no limitations History of Present Illness HPI narrative: This 43-year-old female states she tripped and fell down some stairs this morning around 8:30 AM. She reports pain over the lateral malleolus and the dorsum of the right wrist. No other complaints are reported. She denies any other injury. Related Data Home Medications ?Medication ?Instructions ?Recorded ?Confirmed Bifidobacterium infantis 4 mg 4 mg PO DAILY 10/24/23 06/27/24 capsule (Align (B.infantis)) ascorbic acid (vitamin C) 500 mg 500 mg PO BID 10/24/23 06/27/24 tablet (Vitamin C) ciclopirox 0.77 % topical cream 1 applic topical Q12H 10/24/23 06/27/24 duloxetine 60 mg capsule,delayed 60 mg PO DAILY 10/24/23 06/27/24 release empagliflozin 25 mg tablet 25 mg PO DAILY 10/24/23 06/27/24 (Jardiance) fluoxetine 60 mg tablet 60 mg PO DAILY 10/24/23 06/27/24 gabapentin 300 mg capsule 300 mg PO Q8H 10/24/23 06/27/24 lamotrigine 200 mg tablet 200 mg PO DAILY 10/24/23 06/27/24 lurasidone 120 mg tablet 120 mg PO DAILY 10/24/23 06/27/24 multivitamin with folic acid 400 1 tab PO DAILY 10/24/23 06/27/24 mcg tablet (Daily-Karely (with folic acid)) pioglitazone 30 mg tablet 30 mg PO DAILY 10/24/23 06/27/24 rosuvastatin 10 mg tablet 10 mg PO DAILY 10/24/23 06/27/24 sumatriptan succinate 100 mg tablet 100 mg PO Q2H PRN migraine headache 10/24/23 06/27/24 trazodone 50 mg tablet 50 mg PO DAILY 10/24/23 06/27/24 vitamin B complex 1 tab PO Q24H 10/24/23 06/27/24 albuterol sulfate 0.63 mg/3 mL 0.63 mg inhalation TID PRN 09/16/24 04/28/25 solution for nebulization bronchospasm albuterol sulfate 90 mcg/actuation 2 inh inhalation QID PRN shortness 11/16/23 06/27/24 aerosol inhaler (Proventil HFA) of breath or wheezing biotin injectioin .every other week 11/16/23 fluticasone propionate 50 1 spray intranasal DAILY PRN 11/16/23 06/27/24 mcg/actuation nasal allergy symptoms spray,suspension (24 Hour Allergy Relief) invizia 11/16/23 rizatriptan 10 mg tablet (Maxalt) See Rx Instructions PO .COMPLEX 11/16/23 06/27/24 ferrous sulfate 325 mg (65 mg 325 mg PO DAILY 01/08/24 06/27/24 iron) tablet (FeroSul) docusate sodium 100 mg capsule 300 mg PO DAILY 01/11/24 06/27/24 linaclotide 290 mcg capsule 290 mcg PO DAILY 01/11/24 06/27/24 (Linzess) cholecalciferol (vitamin D3) 125 125 mcg PO DAILY 03/31/24 06/27/24 mcg (5,000 unit) tablet (Vitamin D3) fexofenadine 180 mg tablet 180 mg PO DAILY 03/31/24 06/27/24 lisdexamfetamine 70 mg capsule 70 mg PO QAM 03/31/24 06/27/24 (Vyvanse) metoprolol succinate 25 mg 12.5 mg PO DAILY 03/31/24 06/27/24 tablet,extended release 24 hr tirzepatide 2.5 mg/0.5 mL 2.5 mg subcut QWEEK 06/27/24 06/27/24 subcutaneous pen injector (Se) Previous Rx's ?Medication ?Instructions ?Recorded diclofenac sodium 75 mg 75 mg PO BID PRN pain #60 tabs 11/16/23 tablet,delayed release cyclobenzaprine 10 mg tablet See Rx Instructions .Route 03/10/24 .COMPLEX PRN muscle spasm #90 tabs ondansetron 4 mg disintegrating 4 mg PO Q6H PRN nausea and 03/31/24 tablet vomiting #12 tabs gabapentin 300 mg capsule See Rx Instructions .Route 05/03/24 .COMPLEX #180 caps gabapentin 300 mg capsule See Rx Instructions .Route 05/04/24 .COMPLEX #180 caps hydrocodone 5 mg-acetaminophen 325 1 tab PO Q6H PRN pain #12 tabs 06/30/24 mg tablet Allergies Allergy/AdvReac Type Severity Reaction Status Date / Time cephalexin (From Keflex) Allergy Intermediate Rash Verified 06/27/24 08:33 citalopram (From Celexa) Allergy Intermediate Rash Verified 06/27/24 08:33 metformin Allergy Intermediate Nausea Verified 06/27/24 08:33 Opioid HPI Opioid Management Most Recent Opioid Data: Last Pain Scale 1 06/27/24, 09:08 Last Pain Assessment 06/27/24, 09:08 Ur Phencyclidine Scrn, (NEGATIVE) Negative 10/24/23, 05:14 Review of Systems ROS Status of ROS 10 or more systems reviewed and unremarkable except as noted in history and below [facility] Medical History Heartburn ?R12 - Heartburn (ICD-10) Acid reflux ?K21.9 - Gastro-esophageal reflux disease without esophagitis (ICD-10) ASD (atrial septal defect) ?Q21.10 - Atrial septal defect, unspecified (ICD-10) ADHD ?F90.9 - Attention-deficit hyperactivity disorder, unspecified type (ICD-10) Bipolar affect, depressed ?F31.30 - Bipolar disorder, current episode depressed, mild or moderate severity, unspecified (ICD-10) Anemia ?D64.9 - Anemia, unspecified (ICD-10) Low back pain ?M54.50 - Low back pain, unspecified (ICD-10) Osteoarthritis ?M19.90 - Unspecified osteoarthritis, unspecified site (ICD-10) Carpal tunnel syndrome ?G56.00 - Carpal tunnel syndrome, unspecified upper limb (ICD-10) Obesity ?E66.9 - Obesity, unspecified (ICD-10) Diabetes ?E11.9 - 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s (ICD-10) Sleep apnea ?G47.30 - Sleep apnea, unspecified (ICD-10) Asthma ?J45.909 - Unspecified asthma, uncomplicated (ICD-10) High cholesterol ?E78.00 - Pure hypercholesterolemia, unspecified (ICD-10) Surgical History History of nasal surgery ?Z98.890 - Other specified postprocedural states (ICD-10) History of ankle surgery ?Z98.890 - Other specified postprocedural states (ICD-10) History of tonsillectomy and adenoidectomy ?Z90.89 - Acquired absence of other organs (ICD-10) H/O shoulder surgery ?Z98.890 - Other specified postprocedural states (ICD-10) History of cholecystectomy ?Z90.49 - Acquired absence of other specified parts of digestive tract (ICD-10) Social History Little interest or pleasure in doing things: not at all Feeling down, depressed, or hopeless: not at all Exam Narrative Exam Narrative: Patient is in mild discomfort due to pain. Vital signs are reviewed and are stable. Focused physical examination is carried out of her injured extremities. She does not have any swelling or deformity over the right wrist hand or forearm. She localizes tenderness of the dorsum of the right wrist made worse with active supination of the forearm. She is able to move all the small joints of the right hand freely. The right elbow is atraumatic. Patient is focally tender over the right lateral malleolus. Ankle ligaments are minimally tender on the lateral side. Pulses are intact. She is not focally tender over the proximal fifth metatarsal and her right foot. The lower leg and right knee are atraumatic. Skin is warm and dry. Constitutional Vital Signs, click to edit/add: Last Vital Signs Temp 98.0 F 06/30/24 10:32 Pulse 88 06/30/24 13:53 Resp 18 06/30/24 13:53 BP 146/86 H 06/30/24 13:53 Pulse Ox 98 06/30/24 13:53 O2 Del Method Room Air 06/30/24 10:32 Course Vital Signs Vital signs: Vital Signs Temperature 98.0 F 06/30/24 10:32 Pulse Rate 108 H 06/30/24 10:32 Respiratory Rate 18 06/30/24 10:32 Blood Pressure 110/79 06/30/24 10:32 Pulse Oximetry 95 06/30/24 10:32 Oxygen Delivery Method Room Air 06/30/24 10:32 Temperature 98.0 F 06/30/24 10:32 Pulse Rate 88 06/30/24 13:53 Respiratory Rate 18 06/30/24 13:53 Blood Pressure 146/86 H 06/30/24 13:53 Pulse Oximetry 98 06/30/24 13:53 Oxygen Delivery Method Room Air 06/30/24 10:32 Medical Decision Making MDM Narrative Medical decision making narrative: Patient presents with injury to the right wrist and right ankle after falling. X-rays revealed a nondisplaced fracture of the tip of the lateral malleolus in the right ankle. Wrist x-rays are negative. The right foot and ankle are immobilized with Kashmir wrap and Ortho boot. A Velcro splint is applied over the right wrist for immobility and comfort. Patient is placed on [place] for pain and is referred to her pre wave assembler for follow-up. She may return for worsening symptoms at any time. Discharge Plan Discharge Chief Complaint: Extremity Injury, Lower Clinical Impression: Fracture of distal end of fibula Qualifiers: Encounter type: initial encounter Fracture type: closed Fracture morphology: other fracture Laterality: right Qualified Code(s): S82.831A - Other fracture of upper and lower end of right fibula, initial encounter for closed fracture Right wrist sprain Qualifiers: Encounter type: initial encounter Wrist sprain location: unspecified location Qualified Code(s): S63.501A - Unspecified sprain of right wrist, initial encounter Patient Disposition: Home, Self-Care Time of Disposition Decision: 13:33 Condition: Good Mode of Transportation: Private Vehicle Prescriptions / Home Meds: New hydrocodone-acetaminophen 5-325 mg tablet 1 tab PO Q6H PRN (Reason: pain) Qty: 12 0RF No Action ascorbic acid (vitamin C) [Vitamin C] 500 mg tablet 500 mg PO BID Align (B.infantis) 4 mg capsule 4 mg PO DAILY ciclopirox 0.77 % cream 1 applic TOPICAL Q12H duloxetine 60 mg capsule,delayed release(DR/EC) 60 mg PO DAILY Jardiance 25 mg tablet 25 mg PO DAILY fluoxetine 60 mg tablet 60 mg PO DAILY gabapentin 300 mg capsule 300 mg PO Q8H lamotrigine 200 mg tablet 200 mg PO DAILY lurasidone 120 mg tablet 120 mg PO DAILY multivitamin with folic acid [Daily-Karely (with folic acid)] 400 mcg tablet 1 tab PO DAILY pioglitazone 30 mg tablet 30 mg PO DAILY rosuvastatin 10 mg tablet 10 mg PO DAILY sumatriptan succinate 100 mg tablet 100 mg PO Q2H PRN (Reason: migraine headache) trazodone 50 mg tablet 50 mg PO DAILY Rx Instructions: HS vitamin B complex Tablet 1 tab PO Q24H diclofenac sodium 75 mg tablet,delayed release (DR/EC) 75 mg PO BID PRN (Reason: pain) Qty: 60 2RF rizatriptan [Maxalt] 10 mg tablet See Rx Instructions .ROUTE .COMPLEX Rx Instructions: take 1 tab at onset of headache; if no relief may repeat 1 tab after at least 2 hrs; max = 3 tabs/24 hr albuterol sulfate [Proventil HFA] 90 mcg/actuation HFA aerosol inhaler 2 inh inhalation QID PRN (Reason: shortness of breath or wheezing) fluticasone propionate [24 Hour Allergy Relief] 50 mcg/actuation spray,suspension 1 spray intranasal DAILY PRN (Reason: allergy symptoms) Rx Instructions: administer into each nostril albuterol sulfate 0.63 mg/3 mL solution for nebulization 0.63 mg inhalation TID PRN (Reason: bronchospasm) biotin injectioin .every other week invizia ferrous sulfate [FeroSul] 325 mg (65 mg iron) tablet 325 mg PO DAILY cyclobenzaprine 10 mg tablet See Rx Instructions .ROUTE .COMPLEX PRN (Reason: muscle spasm) Qty: 90 2RF Rx Instructions: 10MG PO AM 20MG PO HS cholecalciferol (vitamin D3) [Vitamin D3] 125 mcg (5,000 unit) tablet 125 mcg PO DAILY fexofenadine 180 mg tablet 180 mg PO DAILY lisdexamfetamine [Vyvanse] 70 mg capsule 70 mg PO QAM metoprolol succinate 25 mg tablet extended release 24 hr 12.5 mg PO DAILY ondansetron 4 mg tablet,disintegrating 4 mg PO Q6H PRN (Reason: nausea and vomiting) Qty: 12 0RF gabapentin 300 mg capsule See Rx Instructions .ROUTE .COMPLEX Qty: 180 0RF Rx Instructions: 2 300MG CAPSULES TID gabapentin 300 mg capsule See Rx Instructions .ROUTE .COMPLEX Qty: 180 0RF Rx Instructions: 2 300MG CAPSULES TID #180 Mounjaro 2.5 mg/0.5 mL pen injector 2.5 mg subcut QWEEK Rx Instructions: for 4 weeks docusate sodium 100 mg capsule 300 mg PO DAILY Linzess 290 mcg capsule 290 mcg PO DAILY Print Language: Chinese Instructions: Ankle Fracture (ED), Wrist Sprain (ED) Additional Instructions: Elevation. Ice. Follow-up with your pre wave assembler. Return for worsening symptoms. Referrals: Adam Yung DPM [Physician, Podiatry] - As soon as possible Loreto Mcneal NP [Primary Care Provider] - 1 week Discharge Date/Time: 06/30/24 13:54
[2024-06-30] MEDS: IBUPROFEN 600 MG TABLET PO (13:17)
[2024-06-30] MEDS: HYDROCODONE/ACET 5-325 MG TABLET 1 TAB PO (13:17)
[2024-06-30 13:53] VITALS: BP 146/86; PULSE 88; O2SAT 98
== END 2024-06-30 13:54 | disposition home or self-care (01) ==
PROVIDERS: Emergency Provider Emergency Medicine; PCP Nurse Practitioner Family
DX: S82.831A Other fracture of upper and lower end of right fibula, initial encounter for closed fracture (principal); S63.501A Unspecified sprain of right wrist, initial encounter; Z90.49 Acquired absence of other specified parts of digestive tract; W10.8XXA Fall (on) (from) other stairs and steps, initial encounter
CPT/HCPCS: 73110; 73610; 99284

== ENCOUNTER 2024-07-22 21:22 | Emergency (ER) | payer OTHER, SELFPAY ==
--- OUTSIDE RECORDS SUMMARY | 2024-03-14 09:30 | XMS_ITS ---
Author Organization [facility] vices Address [address] [facility] [place] [address] Care Team Providers Care Diagnostics Tech Name Role Phone BaileyjulietaozielJennyLoreto Primary Care Provider [phone] Sol Munoz [phone] REASON FOR VISIT Elevated HR Social History Sex Assigned At : Social History Observation Description Sex Assigned At Female Encounters Encounter Location Date Provider Diagnosis Main [address] [facility] [place] [id number] 03/14/2024 Sol Munoz Plan Of Treatment Next Appt Details Provider Name:Loreto ludwig, 08/22/2024 10:30:00 AM, [address] [place] [address], [phone], Provider Name:Deepika lu, 08/25/2024 09:30:00 AM, [address] [place] [address], [id number], Provider Name:Loreto ludwig, 02/27/2025 08:45:00 AM, [address] [place] [address], [phone], Progress Notes * Karma SR ADOB: (43 yo F)Acc No.[id number]:03/14/2024 Medical Note Patient: Miryam Karma KOWALSKI Provider: Lázaro Munoz MD :1980 A ge:43 Y S ex:Female Date:03/14/2024 Address:[address] [place] [address], [id number] Pcp:Loreto Mcneal Subjective: * Chief Complaints: * 1 . Elevated HR. * Medical History: Objective: * Vitals: Assessment: Plan: * Treatment: * Billing Information: * Visit Code: * Procedure Codes: * Electronic signature of Rekha Munoz MD on 07/22/2024 at 09:34 PM EDT Sign off status: Pending * Provider: Lázaro Munoz MD Date: 0 03/14/2024 Generated for Travis shoemaker/Catherine/eTransmitting on: 0 07/22/2024 09:34 PM EDT
--- OUTSIDE RECORDS SUMMARY | 2024-03-29 10:30 | XMS_ITS ---
Author Organization The [facility] in [place] Address [address] [place] [address] Care Team Providers Care Return Agent Airport Name Role Phone Villa CHERRY, Rory Primary Care Provider Unavailab Carmen Cuellar Unavailable [phone] REASON FOR VISIT MD TELEHEALTH Encounters Encounter Location Date Provider Diagnosis The [facility] Oncology [address] [place] [address] 03/29/2024 Carmen Fisher Plan Of Treatment Next Appt Details Provider Name:Carmen Fisher , 09/13/2024 11:00:00 AM, [address] [place], [address], Progress Notes * Karma WHITEHEADDOB:[birth year] (43 yo F)Acc No.[id number]:03/29/2024 UNLOCKED PROGRESS NOTE Progress Notes Patient: Karma MUNOZ Provider: Kerline Fisher M.D. :1980 A ge:43 Y S ex:Female Date:03/29/2024 Address:[address] [place] [address] Pcp:Rory Driver NP Subjective: * Chief Complaints: * 1 . TELEHEALTH. * Medical History: Objective: * Vitals: Assessment: Plan: * Treatment: * * Electronic signature of Jonny Fisher MD, [id number] on 07/22/2024 at 09:33 PM EDT Sign off status: Pending Visit Status: P EN (Pending) * Provider: Kerline Fisher M.D. Date: 0 03/29/2024 Generated for Travis shoemaker/Catherine/Sonal on: 0 07/22/2024 09:33 PM EDT
--- OUTSIDE RECORDS SUMMARY | 2024-04-06 07:15 | XMS_ITS ---
Author Organization The [facility] [place] Address [address] [place] [address] Care Team Providers Care Crematory Operator Name Role Phone Rory Driver NP Primary Care Provider Adam Mahoney Unavailable [phone] Allergies Allergen (clinical drug ingredient) Drug/Non Drug Allergy documented on EMR Reaction Allergy Type Onset Date Status citalopram CeleXA Unknown Drug Allergy Active Keflex Unknown Drug Allergy Active metformin Metformin Unknown Drug Allergy Active Reason For Referral Reason Referral to [employer] Diagnosis 1 Pain in left ankle a nd joints of left foot (M25.572) Referral Organization The [facility] (PODIATRY) Referring Provider First Name Adam Referring Provider Last Name Dilshad Referring Provider Speciality Podiatry Referred Provider Specialty Lashandacellmartinou s Referral Priority Routine REASON FOR VISIT left foot injection Medications Medication SIG (Take, Route, Frequency, Duration) Notes Start Date End Date Status Vyvanse Active Meloxicam 15 MG 1 tablet Orally Once a day for 30 days Unknown Meloxicam 15 MG 1 tablet Orally Once a day for 30 days 02/03/2023 Unknown Ventolin HFA Active Vitamin D Active traZODone HCl Active Ozempic Active Pepcid Active PROzac Active tiZANidine HCl Activ e Jardiance Active LaMICtal Active Latuda Active Nexplanon Active Gabapentin Active Ferrous Sulfate Acti ve Cyclobenzaprine HCl 10 MG 1 tablet at be dtime as needed Orally Once a day Active Cyclobenzaprine HCl 10 MG 1 tablet at be dtime as needed Orally Once a day 04/06/2024 Active Actos Active Ros Active Diclofenac Sodium 25 MG 1 tablet as need ed Orally Four times a day 04/06/2024 Active Social History Tobacco Use: Social History Observation Description Date Details (start date - stop date) Never Smoker NA - NA Tobacco Use/Smoking Question Answer Notes Patient is a nonsmoker Vital Signs Temperature 97.5 degrees Fahrenheit 04/06/19 25 Heart Rate 88 /min 04/06/2024 Height 63 in 04/06/2024 Oximetry 98 % 04/06/2024 Encounters Encounter Location Date Provider Diagnosis The [facility] (PODIATRY) [address] [place] [address] [place] [address] 04/06/2024 Adam Yung Post-traumatic osteoarthritis, left ankle and foot M19.172 ; Ingrowing nail L60.0 ; Tinea unguium B35.1 and Pain in left ankle and joints of left foot M25.572 Assessments Encounter Date Diagnosis (ICD Code) Assessment Notes Treatment Notes Treatment Clinical Notes Section Notes 04/06/2024 Post-traumatic osteoarthritis , left ankle and foot (ICD-10 - M19.172) Patient presents today for corticosteroid injection with her last being nearly 5 months ago which she said alleviated her symptoms nearly entirely for over 3 months. After verbal consent the skin over the anterior medial ankle was prepared with Betadine followed by alcohol then an injection of 1 cc of Celestone was injected into the ankle joint via anterior medial approach. Patient tolerated the injection well and the injection site was dressed with a Band-Aid. Post injection instructions were provided. She will follow-up as needed and will call when additional injection is needed 04/06/2024 Ingrowing nail (ICD-10 - L60.0) Bilateral great toenails were debrided sharply without incident to patient satisfaction. [facility] She may continue to manage on her own with an emery board but will call if additional debridement is needed 04/06/2024 Tinea unguium (ICD-10 - B35.1) 04/06/2024 Pain in left ankle and joints of left foot (ICD-10 - M25.572) Plan Of Treatment Treatment Notes Assessment Notes Post-traumatic osteoarthriti s, left ankle and foot Patient presents today for corticosteroi d injection with her last being nearly 5 months ago which she said alleviated her symptoms nearly entirely for over 3 months. After verbal consent the skin over the anterior medial ankle was prepared with Betadine followed by alcohol then an injection of 1 cc of Celestone was injected into the ankle joint via anterior medial approach. Patient tolerated the injection well and the injection site was dressed with a Band-Aid. Post injection instructions were provided. She will follow-up as needed and will call when additional injection is needed Ingrowing nail Bilateral great toen ails were debrided sharply without incident to patient satisfaction. [facility] She may continue to manage on her own with an emery board but will call if additional debridement is needed Pending Test Test Name Order Date XR Ankle LT (3 views) * (164) 04/06/2024 XR Foot LT (3 views) * 04/06/2024 Referrals Referral Date Details 04/06/2024 04/06/2024, Referral to [facility] Next Appt Details Provider Name:Carmen Fisher , 09/13/2024 11:00:00 AM, [address] [place], [address], Progress Notes * Karma WHITEHEADDOB:[birth year] (43 yo F)Acc No.[id number]:04/06/2024 Follow Up Patient: Miryam Karma CROFT Provider: Jazz Yung DPM, MS :1980 A ge:43 Y S ex:Female Date:04/06/2024 Address:[address] [place], [place] [id number] Pcp:Rory Driver NP Check In:11:25 AM ESTCheck O ut:11:53 AM EST Subjective: * Chief Complaints: * L eft foot injection * HPI: G eneral: Patient in office today wanting to have a steriod injection in her left ankle. She does c/o pain today due to not wearing her ASO. She relates that pain managment put her on Flexoril and voltaren pill. Her pain in her ankle today lies in her anterior ankle joint. She would also like to have her great toenail of her left foot trimmed down today due to sharp piece fof nail digging into medial border of nail. Patient also relates to painful mycotic nail on right great toe that she has difficulty trimming. She has been on oral antifungals (Lamisil) as prescribed by her PCP which she believes has helped but had to discontinue per her PCP. * Active Problem List G89.29 Other chronic pain Modified On:08/14/2022W/U Status:confirmed M19.172 Post-traumatic osteo arthritis, left ankle and foot Modified On:04/08/2023W/U Status:confirmed * Medical History: * Surgical History: a nkle surgery x2 tonsilectomy/adneoids cholecystectomy c sections * Hospitalization/Major Diagno stic Procedure: N o Hospitalization History. * Family History: F ather: . M other: alive, diagnosed with Other malignant neoplasm of unspecified site, Diabetes mellitus without mention of complication, type II or unspecified type, not stated as uncontrolled. * Social History: T obacco Use: T obacco Use/Smoking P atient is a n onsmoker * Medications: T akingActos Ros Cyclobenzaprine HCl 10 MG Tablet 1 tablet at bedtime as needed Orally Once a day Cyclobenzaprine HCl 10 MG Tablet 1 tablet at bedtime as needed Orally Once a day Diclofenac Sodium 25 MG Tablet Delayed Release 1 tablet as needed Orally Four times a day Ferrous Sulfate Gabapentin Jardiance LaMICtal Latuda Nexplanon Ozempic Pepcid PROzac tiZANidine HCl traZODone HCl Ventolin HFA Vitamin D Vyvanse Taking Actos Taking Ros Taking Cyclobenzaprine HCl 10 MG Tablet 1 tablet at bedtime as needed Orally Once a day Taking Cyclobenzaprine HCl 10 MG Tablet 1 tablet at bedtime as needed Orally Once a day Taking Diclofenac Sodium 25 MG Tablet Delayed Release 1 tablet as needed Orally Four times a day Taking Ferrous Sulfate Taking Gabapentin Taking Jardiance Taking LaMICtal Taking Latuda Taking Nexplanon Taking Ozempic Taking Pepcid Taking PROzac Taking tiZANidine HCl Taking traZODone HCl Taking Ventolin HFA Taking Vitamin D Taking Vyvanse UnknownMeloxicam 15 MG Tablet 1 tablet Orally Once a day Meloxicam 15 MG Tablet 1 tablet Orally Once a day Medication List reviewed and reconciled with the patientUnknown Meloxicam 15 MG Tablet 1 tablet Orally Once a day Unknown Meloxicam 15 MG Tablet 1 tablet Orally Once a day Medication List reviewed and reconciled with the patient * Allergies: K eflexCeleXAMetforminno[Allergies Verified] Objective: * Vitals: H t: 63 in, Temp:97.5F, HR:88/min, Oxygen sat %:98%, Ht-cm: 160.02 cm. * Examination: P odiatry Examination: SKIN: s kin intact, n o sign of acute infection. Bilateral hallux nails are thickened, dystrophic, elongated and significantly incurvated on medial and lateral nail folds which are painful to palpation. MUSCULOSKELETAL: P OP anterior ankle which is also reproduced with maximum ankle joint dorsiflexion. Negative anterior drawer. Muscle strength is equal and symmetric bilaterally. NEUROLOGICAL: l ight touch sensation intact, n egative tinel's sign. VASCULAR: P edal pulses palpable, C apillaryrefill is brisk to toe, mild swelling over anterior ankle. Assessment: * Assessment: 1. P ost-traumatic osteoarthritis, left ankle and foot - M19.172 (Primary) 2 .?Ingrowing nail - L60.0 3 . T inea unguium - B35.1 4 . P ain in left ankle and joints of left foot - M25.572 Plan: * Treatment: 2. I ngrowing nail Notes: Bilateral great toenails were debrided sharply without incident to patient satisfaction. [facility] She may continue to manage on her own with an emery board but will call if additional debridement is needed 3. P ain in left ankle and joints of left foot I maging: XR Ankle LT (3 views) * (164) I maging: XR Foot LT (3 views) * Referral To:Miscellaneous Reason:Referral to [facility]. * Procedure Codes: 2 0605 ASPIRINJ. INTER., [place]ifiers: [place] [address] DEBRIDEMENT OF NAILS 1-5, Modifiers: Q8 * * Sign off status: Completed Visit Status: C HK (Check Out) true * Provider: Jazz Yung DPM, MS Date: 0 04/06/2024 Generated for Travis shoemaker/Catherine/Magdalenoitting on: 0 07/22/2024 09:34 PM EDT History and Physical Notes * HPI (History of Present Illness) Category Sub-Category Detail Notes Category Not es General Patient in offi ce today wanting to have a steriod injection in her left ankle. She does c/o pain today due to not wearing her ASO. She relates that pain managment put her on Flexoril and voltaren pill. Her pain in her ankle today lies in her anterior ankle joint. She would also like to have her great toenail of her left foot trimmed down today due to sharp piece fof nail digging into medial border of nail. Patient also relates to painful mycotic nail on right great toe that she has difficulty trimming. She has been on oral antifungals (Lamisil) as prescribed by her PCP which she believes has helped but had to discontinue per her PCP. Examination Category Sub-Category Detail Notes Category Not es Podiatry Examination SKIN: skin intact , no sign of acute infection. Bilateral hallux nails are thickened, dystrophic, elongated and significantly incurvated on medial and lateral nail folds which are painful to palpation MUSCULOSKELETAL: POP anterior ankle w hich is also reproduced with maximum ankle joint dorsiflexion. Negative anterior drawer. Muscle strength is equal and symmetric bilaterally NEUROLOGICAL: light touch sensatio n intact, negative tinel's sign VASCULAR: Pedal pulses palpable, Capillary refill is brisk to toe, mild swelling over anterior ankle Consultation Request Notes Referral Date Referring Provider Referred Provider Not es 04/06/2024 Adam Yung , Referral t o [employer]
--- OUTSIDE RECORDS SUMMARY | 2024-06-14 07:30 | XMS_ITS ---
Author Organization The [facility] in [place] Address [address] [place] [address] Care Team Providers Care Music Internship Name Role Phone Villa CHERRY, Rory Primary Care Provider Unavailab Carmen Cuellar Unavailable [phone] REASON FOR VISIT MD Encounters Encounter Location Date Provider Diagnosis The [facility] On[facility] [address] [place] [address] 06/14/2024 Carmen Fisher Plan Of Treatment Next Appt Details Provider Name:Carmen Fisher , 09/13/2024 11:00:00 AM, [address] [place], [address], Progress Notes * Karma WHITEHEADDOB:[birth year] (43 yo F)Acc No.[id number]:06/14/2024 UNLOCKED PROGRESS NOTE Progress Notes Patient: Karma MUNOZ Provider: Kerline Fisher M.D. :1980 A ge:43 Y S ex:Female Date:06/14/2024 Address:[address] [place] [address] Pcp:Rory Driver NP Subjective: * Chief Complaints: * 1 . MD. * Medical History: Objective: * Vitals: Assessment: Plan: * Treatment: * * Electronic signature of Jonny Fisher MD, [id number] on 07/22/2024 at 09:34 PM EDT Sign off status: Pending Visit Status: A NSPH (Voice) * Provider: Kerline Fisher M.D. Date: 0 06/14/2024 Generated for Travis shoemaker/Catherine/Sonal on: 0 07/22/2024 09:34 PM EDT
--- OUTSIDE RECORDS SUMMARY | 2024-06-15 04:30 | XMS_ITS ---
Author Organization [facility] Address [address] [facility] [place] [address] Care Team Providers Care Miter Sawyer Name Role Phone Chinyere Calix Primary Care Provider [phone] REASON FOR VISIT 3 month f/u Encounters Encounter Location Date Provider Diagnosis [facility] [address] [place] [address] 06/15/2024 Chinyere Calix Plan Of Treatment Next Appt Details Provider Name:Chinyere Churchill Yogi, 09/19/2024 10:15:00 AM, [address] [place], [address], Progress Notes * PEE WHITEHEADDOB:[birth year] (43 yo F)Acc No.[id number]:06/15/2024 Behavioral Health Patient: Miryam PEE CROFT Appointment Provider: Precious Calix :1980 A ge:43 Y S ex:Female Date:06/15/2024 Address:[facility] [address] [facility] Subjective: * Chief Complaints: * 1 . 3 month f/u. * Medical History: Objective: * Vitals: Assessment: Plan: * Treatment: * Images: * Electronic signature of FAWN Acosta FNP on 07/22/2024 at 09:34 PM EDT Sign off status: Pending * Appointment Provider: Precious Calix Date: 0 06/15/2024 Generated for Travis shoemaker/Catherine/Magdalenoitting on: 0 07/22/2024 09:34 PM EDT
--- OUTSIDE RECORDS SUMMARY | 2024-07-16 10:49 | XMS_ITS | Encounter Summary ---
Author Organization [facility] Address [address] [place] [address] Care Team Providers Care Impregnator Helper Name Role Phone Loreto Mcneal APRN - JO ANN Primary Care Prov ider Reason for Visit * Reason Comments Ankle Pain Pt to ED from home w ith c/o left ankle pain. Denies any fall or injury.Onset of pain x2-3 days ago. Pt has been wearing a splint.Pt fell at work x1 month ago. Pt evaluated and treated at [facility].Pt fell again x2 weeks ago. Pt evaluated at [facility] and treated for right ankle and wrist fracture. Pt has MRI scheduled.Pt currently being treated by Pain Management. Encounter Details Date Type Department Care Team (Late st Contact Info) Description 07/16/2024 10:49 AM EDT - 07/16/2024 1:52 PM EDT Emergency [facility] Emergency Department [address] [id number] Post-traumatic osteoarthritis of left ankle (Primary Dx); Midline low back pain without sciatica, unspecified chronicity Discharge Disposition: Home or Self Care Social History Tobacco Use Types Packs/Day Years Used Date Smoking Tobacco: Never Smokeless Tobacco: Never Alcohol Use Standard Drinks/Week Comments No 0 (1 standard drink = 0.6 oz pur e alcohol) AUDIT-C Answer Date Recorded Q1: How often do you have a drink containing alcohol? Never 10/05/2023 Q2: How many drinks containi ng alcohol do you have on a typical day when you are drinking? Patient does not drink Q3: How often do you have si x or more drinks on one occasion? Never 10/05/2023 Comments No Sex and Gender Information Value Date Recorded Sex Assigned at Not on file Legal Sex Female 2:04 PM EST Gender Identity Not on file Sexual Orientation Not on file documented as of this encounter Last Filed Vital Signs Vital Sign Reading Time Taken Comments Blood Pressure 145/80 07/16/2024 11:01 AM EDT Pulse 100 07/16/2024 11:01 AM EDT Temperature 36.4 C (97.5 F) 07/16/2024 11:01 AM EDT Respiratory Rate 16 07/16/2024 11:01 AM EDT Oxygen Saturation 93% 07/16/2024 11:06 AM EDT Inhaled Oxygen Concentration - - Weight 99.8 kg (220 lb) 07/16/2024 11:01 AM EDT Height 160 cm (5' 3 ) 07/16/2024 11:01 AM EDT Body Mass Index 38.97 07/16/2024 11:01 AM EDT documented in this encounter Discharge Instructions * Discharge Instructions* Prieto Daniel PA-C - 07/16/2024 1:36 PM EDT May use ice and elevation for the ankle continue your ibuprofen and use of your Flexeril at home for muscle relaxant for your lower back would apply cold pack to the lower back for 20 minutes severaltimes a day as well. Follow-up with your primary care and or talent acquisition specialist for these concerns. * Attachments The following attachments cannot be sent through Care Everywhere. * Back Pain (Portuguese) * Arthritis (Portuguese) documented in this encounter Medications at Time of Discharge fexofenadine (JONATHAN ALLERGY) 180 MG tablet Take 1 tablet by mouth daily Cyclobenzaprine HCl (FLEXERIL PO) Take by mouth in the morning and at bedtime Take 2 at night and 1 every morning Diclofenac Sodium (VOLTAREN PO) Take by mouth in the morning and at bedtime One every morning and two every night linaclotide (LINZESS) 290 MCG CAPS capsule Take 1 capsule by mouth every morning (before breakfast) empagliflozin (JARDIANCE) 25 MG tablet Take 1 tablet by mouth daily Liraglutide (VICTOZA) 18 MG/3ML SOPN SC injection Inject 1.8 mg into the skin daily probiotic (ALIGN/RISAQUAD) CAPS capsule Take 1 capsule by mouth daily ALIGN pioglitazone (ACTOS) 30 MG tablet Take 1 tablet by mouth daily vitamin C (ASCORBIC ACID) 500 MG tablet Take 1 tablet by mouth 2 times daily Cholecalciferol (VITAMIN D3) 50 MCG (2000 UT) CAPS Take 1 capsule by mouth daily rosuvastatin (CRESTOR) 20 MG tablet Take 1 tablet by mouth daily docusate sodium (COLACE) 100 MG capsule Take 3 capsules by mouth Daily traZODone (DESYREL) 50 MG tablet Take 1 tablet by mouth nightly famotidine (PEPCID) 20 MG tablet Take 2 tablets by mouth daily meloxicam (MOBIC) 15 MG tablet Take 1 tablet by mouth daily lisdexamfetamine (VYVANSE) 70 MG capsule Take 1 capsule by mouth every morning. DULoxetine (CYMBALTA) 60 MG extended release capsule Take 1 capsule by mouth daily tiZANidine (ZANAFLEX) 4 MG tablet Take 2 tablets by mouth every 6 hours as needed gabapentin (NEURONTIN) 100 MG capsule Take 3 capsules by mouth 3 times daily. ibuprofen (ADVIL;MOTRIN) 600 MG tablet Take 1 tablet by mouth 4 times daily as needed for Pain 30 tablet 1 03/20/2018 hydrOXYzine (ATARAX) 25 MG tablet Take 1 tablet by mouth every 4 hours as needed for Itching 30 tablet 1 10/21/2017 naproxen (NAPROSYN) 500 MG tablet Take 1 tablet by mouth as needed for Pain montelukast (SINGULAIR) 10 MG tablet Take 1 tablet by mouth nightly ferrous sulfate 325 (65 Fe) MG tablet Take 1 tablet by mouth daily (with breakfast) fluticasone (FLONASE) 50 MCG/ACT nasal spray 1 spray by Nasal route daily FLUoxetine (PROZAC) 20 MG capsule Take 3 capsules by mouth daily temazepam (RESTORIL) 15 MG capsule Take 15 mg by mouth nightly as needed for Sleep methocarbamol (ROBAXIN) 500 MG tablet Take 1 tablet by mouth 3 times daily albuterol sulfate HFA 108 (90 Base) MCG/ACT inhaler Inhale 2 puffs into the lungs every 4 hours as needed for Wheezing zonisamide (ZONEGRAN) 100 MG capsule Take 100 mg by mouth daily topiramate (TOPAMAX) 200 MG tablet Take 200 mg by mouth daily documented as of this encounter Plan of Treatment Upcoming Encounters Date Type Department Care Team (Late st Contact Info) Description 11/10/2024 11:30 AM EDT Office Visit [facility] Part of [address] [place] [address] Karen Cotter, GROCERY MANAGER - GEOSPATIAL PROGRAM MANAGEMENT OFFICER [address] [place] [address] [address] [place] [id number] 1 year KUB documented as of this encounter Procedures Procedure Name Priority Date/Time Associated Diagnosis Comments URINALYSIS WITH MICROSCOPIC STAT 07/16/2024 1:25 PM EDT XR ANKLE LEFT (MIN 3 VIEWS) STAT 07/16/2024 11:49 AM EDT XR HIP BILATERAL W AP PELVIS (2 VIEWS) STAT 07/16/2024 11:49 AM EDT XR LUMBAR SPINE (2-3 VIEWS) STAT 07/16/2024 11:46 AM EDT documented in this encounter Results * (ABNORMAL) Urinalysis with Microscopic (07/16/2024 1:25 PM EDT) Color, UA Yellow Yellow 07/16/2024 1:25 PM EDT [facility] Turbidity UA Clear Clear 07/16/2024 1:25 PM EDT [facility] Glucose, Ur 3+(A) NEGATIVE mg/dL 07/16/2024 1:25 PM EDT [facility] Bilirubin, Urine NEGATIVE NEGATIVE 07/16/2024 1:25 PM EDT [facility] Ketones, Urine NEGATIVE NEGATIVE mg/dL 07/16/2024 1:25 PM EDT [facility] Specific [place], UA 1.025(H) 1.010 - 1.020 07/16/2024 1:25 PM EDT [facility] Urine Hgb NEGATIVE NEGATIVE 07/16/2024 1:25 PM EDT [facility] pH, Urine 6.0 5.0 - 9.0 07/16/2024 1:25 PM EDT [facility] Protein, UA NEGATIVE NEGATIVE mg/dL 07/16/2024 1:25 PM EDT [facility] Urobilinogen, Urine Normal 0.0 - 1.0 EU/dL 07/16/2024 1:25 PM EDT [facility] Nitrite, Urine NEGATIVE NEGATIVE 07/16/2024 1:25 PM EDT [facility] Leukocyte Esterase, Urine NEGATIVE NEGATIVE 07/16/2024 1:25 PM EDT [facility] WBC, UA 0 TO 2 0 - 5 /HPF 07/16/2024 1:25 PM EDT [facility] RBC, UA 0 TO 2 0 - 2 /HPF 07/16/2024 1:25 PM EDT [facility] Epithelial Cells, UA 0 TO 2 0 - 25 /HPF 07/16/2024 1:25 PM EDT [facility] Bacteria, UA TRACE(A) None 07/16/2024 1:25 PM EDT [facility] Mucus, UA TRACE(A) None 07/16/2024 1:25 PM EDT [facility] Amorphous, UA TRACE(A) None 07/16/2024 1:25 PM EDT [facility] Urine URINE SPECIMEN / Unknown 07/16/2024 1:25 PM EDT 07/16/2024 1:29 PM EDT Prieto Daniel PA-C URINE ORDERABLES Final Result [facility] [address] [id number] [phone] * XR ANKLE LEFT (MIN 3 VIEWS) (07/16/2024 11:49 AM EDT) Anatomical Region Laterality Modality Leg, Ankle, Foot Computed Radiog jovanna 07/16/2024 12:4 5 PM EDT Impressions 07/16/2024 12:45 PM EDT 1. No acute abnormality. Narrative 07/16/2024 12:45 PM EDT EXAMINATION: THREE XRAY VIEWS OF THE LEFT ANKLE 07/16/2024 11:49 am COMPARISON: None. HISTORY: ORDERING SYSTEM PROVIDED HISTORY: Pain Hx previous Surgery TECHNOLOGIST PROVIDED HISTORY: Pain Hx previous Surgery FINDINGS: There is no acute fracture or dislocation. There are old healed tibial and fibular fractures. The ankle mortise is intact. The bones are demineralized. There are no bony destructive lesions. Procedure Note Faheem Long MD - 07/16/2024 EXAMINATION: THREE XRAY VIEWS OF THE LEFT ANKLE 07/16/2024 11:49 am COMPARISON: None. HISTORY: ORDERING SYSTEM PROVIDED HISTORY: Pain Hx previous Surgery TECHNOLOGIST PROVIDED HISTORY: Pain Hx previous Surgery FINDINGS: There is no acute fracture or dislocation. There are old healed tibialand fibular fractures. The ankle mortise is intact. The bones are demineralized. There are no bony destructive lesions. IMPRESSION: 1. No acute abnormality. Prieto Daniel PA-C IMG DIAGNOSTIC IMAGING ORDERAB LES Final Result * XR HIP BILATERAL W AP PELVIS (2 VIEWS) (07/16/2024 11:49 AM EDT) Anatomical Region Laterality Modality Abdomen, Pelvis, Hip, Thigh Comp uted Radiography 07/16/2024 12:4 6 PM EDT Impressions 07/16/2024 12:46 PM EDT 1. No acute abnormality. Narrative 07/16/2024 12:46 PM EDT EXAMINATION: ONE XRAY VIEW OF THE PELVIS AND TWO XRAY VIEWS OF EACH OF THE BILATERAL HIPS 07/16/2024 11:49 am COMPARISON: None. HISTORY: ORDERING SYSTEM PROVIDED HISTORY: Hip Pain, not trauma TECHNOLOGIST PROVIDED HISTORY: X-ray injured hip and pelvis - add femur if pain and/or swelling is distal to the hip Hip Pain, not trauma FINDINGS: There is no acute fracture or dislocation. The bones are normally mineralized. There are no bony destructive lesions. 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 Procedure Note Faheem Long MD - 07/16/2024 EXAMINATION: ONE XRAY VIEW OF THE PELVIS AND TWO XRAY VIEWS OF EACH OF THE BILATERALHIPS 07/16/2024 11:49 am COMPARISON: None. HISTORY: ORDERING SYSTEM PROVIDED HISTORY: Hip Pain, not trauma TECHNOLOGIST PROVIDED HISTORY: X-ray injured hip and pelvis - add femur if pain and/or swelling is distalto the hip Hip Pain, not trauma FINDINGS: There is no acute fracture or dislocation. The bones are normally mineralized. There are no bony destructive lesions. There is mildbilateral hip osteoarthritis. IMPRESSION: 1. No acute abnormality. Prieto CALVO-C [facility] DIAGNOSTIC IMAGING ORDERAB LES Final Result * XR LUMBAR SPINE (2-3 VIEWS) (07/16/2024 11:46 AM EDT) Anatomical Region Laterality Modality T-spine, L-spine, Pelvis Compute d Radiography 07/16/2024 12:4 6 PM EDT Impressions 07/16/2024 12:47 PM EDT 1. Mild multilevel spondylosis. Narrative 07/16/2024 12:47 PM EDT EXAMINATION: 3 XRAY VIEWS OF THE LUMBAR SPINE 07/16/2024 11:46 am COMPARISON: None. HISTORY: ORDERING SYSTEM PROVIDED HISTORY: back pain TECHNOLOGIST PROVIDED HISTORY: back pain FINDINGS: The 5 lumbar vertebral bodies are in anatomic alignment. The vertebral body heights are maintained. There is mild multilevel spondylosis and facet arthropathy. Status post cholecystectomy. Procedure Note Faheem Long MD - 07/16/2024 EXAMINATION: 3 XRAY VIEWS OF THE LUMBAR SPINE 07/16/2024 11:46 am COMPARISON: None. HISTORY: ORDERING SYSTEM PROVIDED HISTORY: back pain TECHNOLOGIST PROVIDED HISTORY: back pain FINDINGS: The 5 lumbar vertebral bodies are in anatomic alignment. The vertebralbody heights are maintained. There is mild multilevel spondylosis and facet arthropathy. Status post cholecystectomy. IMPRESSION: 1. Mild multilevel spondylosis. Prieto CALVO-C IM DIAGNOSTIC IMAGING ORDERAB LES Final Result documented in this encounter Visit Diagnoses Diagnosis Post-traumatic osteoarthritis of left ankle- Primary Midline low back pain without sciatica, unspecified chronicity documented in this encounter Care Teams Impregnator Helper Relationship Specialty Start Date End Date Loreto Mcneal APRN - MECHANICAL SPECIALIST [address] [place] [address] PCP - General 11/11/23 documented as of this encounter
--- OUTSIDE RECORDS SUMMARY | 2024-07-16 10:49 | XMS_ITS ---
Author Name Auto Generated Organization OHIP Support Name Relationship Address Phone LEAR, FARHAT Next of Kin Unknown [phone] BASSAM, TUNG Next of Kin Unknown + BASSAM, GABBY Next of Kin Unknown [phone] ANA PAULA AIKEN Next of Kin Unknown [phone] LEAR, FARHAT Next of Kin Unknown [phone] BASSAM, TUNG Next of Kin Unknown + BASSAM, GABBY Next of Kin Unknown [phone] ANA PAULA AIKEN Next of Kin Unknown [phone] LEAR, FARHAT Next of Kin Unknown [phone] BASSAM, TUNG Next of Kin Unknown + BASSAM, GABBY Next of Kin Unknown [phone] LEAR, FARHAT Next of Kin Unknown [phone] BASSAM, TUNG Next of Kin Unknown + BASSAM, GABBY Next of Kin Unknown [phone] LEAR, FARHAT Next of Kin Unknown [phone] BASSAM, TUNG Next of Kin Unknown + BASSAM, GABBY Next of Kin Unknown [phone] LEAR, FARHAT Next of Kin Unknown [phone] BASSAM, TUNG Next of Kin Unknown + BASSAM, GABBY Next of Kin Unknown [phone] LEAR, FARHAT Next of Kin Unknown [phone] BASSAM, TUNG Next of Kin Unknown + BASSAM, GABBY Next of Kin Unknown [phone] LEAR, FARHAT Next of Kin Unknown [phone] BASSAM, TUNG Next of Kin Unknown + BASSAM, GABBY Next of Kin Unknown [phone] LEAR, FARHAT Next of Kin Unknown [phone] BASSAM, TUNG Next of Kin Unknown + BASSAM, GABBY Next of Kin Unknown [phone] Lear, Farhat Next of Kin Unknown [phone] Bassam, Zoran Next of Kin Unknown [phone] LEAR, FARHAT Next of Kin Unknown [phone] LEAR, FARHAT Next of Kin Unknown [phone] [place] [address] [phone] BASSAMZORAN CALDERON Next of Kin Unknown Unavailable LEAR, FARHAT Next of Kin Unknown [phone] BASSAM, TUNG Next of Kin Unknown + BASSAM, GABBY Next of Kin Unknown [phone] ANA PAULA AIKEN Next of Kin Unknown Unavailable LEAR, PAT Next of Kin Unknown + LEAR, FARHAT Next of Kin Unknown [phone] LEAR, FARHAT Next of Kin Unknown [phone] [place] [address] [phone] BASSAMZORAN CALDERON Next of Kin Unknown Unavailable ATTILAANA PAULA Next of Kin Unknown Unavailable LEAR, PAT Next of Kin Unknown + LEAR, PAT Next of Kin Unknown + LEAR, FARHAT Next of Kin Unknown [phone] LEAR, FARHAT Next of Kin Unknown [phone] [place] [address] [phone] BASSAMSAMI CALDERONOLAS Next of Kin Unknown Unavailable LEAR, PAT Next of Kin Unknown + LEAR, PAT Next of Kin Unknown + LEAR, PAT Next of Kin Unknown + LEAR, PAT Next of Kin Unknown + LEAR, PAT Next of Kin Unknown + LEARFARHAT Next of Kin Unknown [phone] BASSAMTUNG CALDERON Next of Kin Unknown + BASSAMGABBY CALDERON Next of Kin Unknown [phone] LEAR, PAT Next of Kin Unknown + LEAR, PAT Next of Kin Unknown + LEAR, PAT Next of Kin Unknown + Care Team Providers Care 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 Driver Name Role Phone EKNZIE TOM Attending Unavailable KENZIE TOM Referring Unavailable PRIYA SPENCER Attending Unavailable PRIYA SPENCER F Referring Unavailable LAILA LIEBERMAN Attending Unavailable AMENA GARNER Attending Unavailable ALICIA PRESTON Attending Unavailable SHIRA CARDOSO Attending Unavailable LAILA LIEBERMAN Attending Unavailable ALICIA PRESTON Attending Unavailable SHIRA CARDOSO Attending Unavailable ALICIA PRESTON Attending Unavailable SERVICES, [facility] Primary Care Unava ilable ADAM MASSEY Attending Unavail able RUMSCHLAG, YANE K Referring Unavailable SERVICES, [facility] Primary Care Unava ilable JORGE, LISA Referring Unavailable SERVICES, [facility] Primary Care Unava ilable RUMSCHLAG, YANE Referring Unavailable RUMSCHLAG, YANE Primary Care Unavailable RUMSCHLAG, YANE Referring Unavailable RUMSCHLAG, YANE Primary Care Unavailable RUMSCHLAG, YANE Referring Unavailable RUMSCHLAG, YANE Primary Care Unavailable RUMSCHLAG, YANE Referring Unavailable MYERHOLTZ, DAVIE Primary Care Unavailable RUMSCHLAG, YANE Referring Unavailable RUMSCHLAG, YANE Primary Care Unavailable RUMSCHLAG, YANE Primary Care Unavailable NAVEEN SANCHEZ Attending Unavailable RUMSCHLAG, YANE Referring Unavailable MYERHOLTZ, DAVIE Primary Care Unavailable RUMSCHLAG, YANE Referring Unavailable RUMSCHLAG, YANE Primary Care Unavailable RUMSCHLAG, YANE Referring Unavailable RUMSCHLAG, YANE Primary Care Unavailable RUMSCHLAG, YANE Referring Unavailable MYERHOLTZ, DAVIE Primary Care Unavailable RUMSCHLAG, YANE Referring Unavailable RUMSCHLAG, YANE Primary Care Unavailable RUMSCHLAG, YANE Referring Unavailable RUMSCHLAG, YANE Primary Care Unavailable RUMSCHLAG, YANE Referring Unavailable MYERHOLTZ, DAVIE Primary Care Unavailable RUMSCHLAG, YANE Referring Unavailable MYERHOLTZ, DAVIE Primary Care Unavailable MYERHOLTZ, DAVIE Primary Care Unavailable TIRSO JUNIOR Attending Unavailable RUMSCHLAG, YANE Primary Care Unavailable NAVEEN SANCHEZ Attending Unavailable MYERHOLTZ, DAVIE Primary Care Unavailable RUMSCHLAG, YANE Referring Unavailable RUMSCHLAG, YANE Primary Care Unavailable Villa, Rory T Primary Care Unavailable Mio Marroquin Attending Unavailable Mio Marroquin Admitting Unavailable Gimansoor DALE, Andrius Stoddard Attending Unavailable Giedraitis , Andrius Stoddard Attending Unavailable Giedraitis , Andrius Stoddard Attending Unavailable Giedraitis , Andrius Arlyn Attending Unavailable Giedraitis , Andrius Stoddard Attending Unavailable PROBLEMS DATE TYPE CONDITION / CODE ATTENDING STATUS [facility] 07/16/2024 Admitting diagnosis Ankle Pain / [id number]() [facility] 06/20/2024 Admitting Diagnosis Essential (primary) hypertension / I10(ICD-10) [facility] 06/20/2024 Admitting Diagnosis Other chest pain / R07.89(ICD-10) [facility] 01/13/2024 Unknown Dizziness and giddiness / R42(ICD-10) TIRSO JUNIOR [facility] 12/21/2023 Unknown Anemia, unspecif ied / D64.9(ICD-10) [facility] 12/21/2023 Unknown Iron deficiency anemia, unspecified / D50.9(ICD-10) [facility] 12/21/2023 Unknown Intestinal malabsorption, unspecified / K90.9(ICD-10) [facility] 12/21/2023 Unknown Genetic susceptibility to other malignant neoplasm / Z15.09(ICD-10) [facility] 10/08/2023 Unknown New Patient / FREETEXT(AOF) ADAM MASSEY [facility] 10/06/2023 Unknown Epigastric pain / R10.13(ICD-10) DANIELGIOVANIN [facility] 10/05/2023 Unknown Chest pain, unspecified / R07.9(ICD-10) [facility] 10/05/2023 Unknown Chest Pain / FREETEXT(AOF) [facility] 10/05/2023 Unknown Chest Pain / UNK(Unknown) [facility] 09/01/2023 Admitting diagnosis Persons encountering health services in other specified circumstances / Z76.89(ICD-10) [facility] PROCEDURES No Procedure Records Found RESULTS URINALYSIS W/ MICRO Collected: 07/17/19 25 1:25 PM Status: F Source: [facility] TYPE CODE TESTS RESULT OUT OF RANGE REFERENCE UNITS LAB UCO(LOINC) Color Yellow YEL LAB UTU(LOINC) Clarity, Urine Clear CLEAR LAB UGL(LOINC) Glucose,Semi-q nt,Ur 3+ Abnormal NEG mg/dL LAB UBI(LOINC) Bilirubin, SemiQt,Ur NEGATIVE NEG LAB UKE(LOINC) Ketones, Urine NEGATIVE NEG mg/dL LAB USG(LOINC) Spec. [place],Ur 1.025 High 1.010-1.020 LAB UHB(LOINC) Blood, Urine NEGATIVE NEG LAB UPH(LOINC) PH,Ur 6.0 5.0-9.0 LAB UPR(LOINC) Protein, Semi-qnt,Ur NEGATIVE NEG mg/dL LAB UUR(LOINC) Urobilinogen,U r Normal 0.0-1.0 EU/dL LAB UNI(LOINC) Nitrite,Ur NEGATIVE NEG LAB ULE(LOINC) Leukocyte Esterase NEGATIVE NEG LAB UWBC(LOINC) Urine WBC's 0 TO 2 0-5 /HPF LAB URBC(LOINC) Urine RBC's 0 TO 2 0-2 /HPF LAB EPITH(LOINC) Epithelial cells 0 TO 2 0-25 /HPF LAB BACT(LOINC) Bacteria TRACE Abnormal NONE LAB MUC(LOINC) Mucus Strands TRACE Abnormal NONE LAB AMORPH(LOINC) Amorphous Sediment TRACE Abnormal NONE Performed By: #### UAMIC ### # [facility] [address] [place] [address] Wheel Roller: Zelalem Velázquez MD XR LUMBAR SPINE (2-3 VIEWS) Observed: 12:47 PM Status: F Source: [facility] EXAMINATION: 3 XRAY VIEWS OF THE LUMBAR SPINE 07/16/2024 11:46 am COMPARISON: None. HISTORY: ORDERING SYSTEM PROVIDED HISTORY: back pain TECHNOLOGIST PROVIDED HISTORY: back pain FINDINGS: The 5 lumbar vertebral bodies are in anatomic alignment. The vertebral body heights are maintained. There is mild multilevel spondylosis and facet arthropathy. Status post cholecystectomy. IMPRESSION: 1. Mild multilevel spondylosis. Interpreted by: Faheem Long MD Signed by: Faheem Long MD 07/16/24 Final result XR HIP BILATERAL W AP PELVIS (2 VIEWS) Observed: 07/16/2024 12:46 PM Status: F Source: [facility] EXAMINATION: ONE XRAY VIEW OF THE PELVIS [...] lesions. 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 IMPRESSION: 1. No acute abnormality. Interpreted by: Faheem Long MD Signed by: Faheem Long MD 07/16/24 Final result XR ANKLE LEFT (MIN 3 VIEWS) Observed: 12:45 PM Status: F Source: [facility] EXAMINATION: THREE XRAY VIEWS OF THE LEFT [...] destructive lesions. IMPRESSION: 1. No acute abnormality. Interpreted by: Faheem Long MD Signed by: Faheem Long MD 07/16/24 Final result ABSTRACT Observed: 07/08/2024 12:00 AM Status: COMPLETED Source: [facility] [id number] Pee Whitehead 1980 F Date Provider Department Center 07/08/2024 [id number] TOM [facility] No family history on file PROGRESS Observed: 06/20/2024 8:00 AM Status: COMPLETED Source: [facility]TP CARDIOLOGY PROGRESS NOTE [facility] HPI: Pee Whitehead is a 43 y.o. female here for new patient visit. Patient has several complaints including chest pain that comes and goes on the right side, extreme fatigue, occasional shortness of breath. Patient has been in and out of the hospital the past several months for different complaints. She also reports uncontrolled blood pressure at home and sometimes a fast heart rate. She states she wore two past event monitors, these are unable to be viewed in chart, but she was told that everything was normal. Family hx significant for father, now , with Irma's disease with complications of MD. Mother has no significant family hx. Patient is an only child. Patient states the chest pain occurs randomly, usually on the right hand side. Does not radiate to left, jaw, or arm. Shortness of breath does not necessarily coincide with her chest pain. Current Medications: jardiance 25 mg daily, metoprolol 25 mg daily, crestor 10 mg daily, Social History Tobacco Use Smoking status: Never Passive exposure: Never Smokeless tobacco: Never Substance Use Topics Alcohol use: Not Currently Drug use: Not Currently Allergies Allergen Reactions Biguanides Other and Unknown Severe hypoglycemia Other Reaction(s): Other (See Comments), Unknown Reaction Hypoglycemia Hypoglycemia Cephalexin Hives, Other and Unknown Shortness of breath, throat felt tight Other Reaction(s): Other: See Comments, Unknown Shortness of breath, throat felt tight Other Reaction(s): Swelling of Lip/Tongue/Throat, hives Citalopram Hives and Unknown Other Reaction(s): Other: See Comments, Unknown palpitations Other Reaction(s): Palpitations, anaphylaxis Outpatient Medications: Current Outpatient Medications Medication Instructions Art, B.infantis, 4 mg capsule 1 capsule, oral, Daily RT ascorbic acid (VITAMIN C) 500 mg, oral, 2 times daily cholecalciferol (vitamin D3) 2,000 Units, oral, Daily RT ciclopirox (Loprox) 0.77 % cream APPLY TO THE AFFECTED AREA(S) TWICE DAILY cyclobenzaprine (FLEXERIL) 10 mg, oral, 3 times daily PRN diclofenac (VOLTAREN) 75 mg, oral, 2 times daily PRN docusate sodium (COLACE) 300 mg, oral, 3 times daily DULoxetine (Cymbalta) [address] capsule 1 capsule, oral, Daily empagliflozin (JARDIANCE) 25 mg, oral, Daily RT FeroSuL 325 mg (65 mg iron) tablet 1 tablet, oral, Daily FLUoxetine (PROZAC) 60 mg, oral, Daily fluticasone (Flonase) 50 mcg/actuation nasal spray 1 spray, Each Nostril, As needed gabapentin (Neurontin) 300 mg capsule 1 capsule, Every 8 hours lamoTRIgine (LAMICTAL) 200 mg, oral, Every 24 hours Latuda 120 mg, oral, Every 24 hours Linzess 290 mcg capsule Every 24 hours lisdexamfetamine (Vyvanse) 70 mg capsule 1 capsule, oral, Every morning metoprolol succinate XL (TOPROL-XL) 25 mg, oral, Daily Mounjaro 2.5 mg/0.5 mL pen injector INJECT 2.5 MG SUBCUTANEOUSLY (UNDER THE SKIN) EVERY 7 DAYS multivitamin (Theragran-M) 9 mg iron-400 mcg tablet 1 tablet, oral, Daily RT Nexplanon 68 mg, subcutaneous pantoprazole (PROTONIX) 20 mg, oral, 2 times daily RT pioglitazone (ACTOS) 30 mg, Every 24 hours rosuvastatin (CRESTOR) 10 mg, oral traMADol (ULTRAM) 50 mg, oral, Daily PRN VITAMIN B COMPLEX ORAL 1 tablet, oral, Daily Physical Exam: Constitutional General Appearance: well-nourished, well-developed, appears stated age, Overweight Level of Distress: comfortable Eyes ESTUARDO Neck Neck: supple, trachea midline Carotid Arteries: bilateral normal upstroke, no bruits Jugular Veins: normal jugular venous pressure Thyroid: not enlarged Lungs Respiratory Effort: unlabored Chest Exam: normal curvature, no thoracic deformity Auscultation: Clear to auscultation b/l Cardiovascular Chest wall: Rate And Rhythm: Regular rate and rhythm Heart Sounds: normal S1, normal s2, no gallop Systolic Murmur: not heard Diastolic Murmur: not heard Extremities: No lower extremity edema in b/l extremities Peripheral Pulses Radial Pulse: normal Abdomen Inspection and Palpation: Soft Neurologic Gait: normal gait Labs: Last lab values have been reviewed with patient at today's visit. CV Testing: No results found for this or any previous visit (from the past 4464 hour(s)). Echo: Stress test: Coronary angiogram: Event Monitor/Holter Monitor/Device Assessment/Plan: Pee Whitehead is a 43 y.o. female #Hypertension -Patient reports uncontrolled, labile HTN at home. She states it is generally within optimal range (115/71 today), but can sometimes elevate to the 180's systolic at home. Patient is currently taking Toprol 12.5 mg XL nightly. -Asked patient to keep blood pressure log at home, to take it twice a day, and to bring it to next visit. #Chest pain -Atypical symptoms, but patient has history of HTN and ongoing symptoms of chest pain. Will order treadmill stress and echocardiogram to assess cardiac etiology of chest pain. -Lipid panel from 03/2023 was WNL: cholesterol of 132, HDL of 58, LDL of 51, triglycerides of 114. Continue crestor 10 mg daily. -Patient is being worked up for her fatigue via her PCP. Will continue to follow. -EKG today showed NSR Followup: After testing Kenzie Tom PA-C [facility] Cardiology Available 7-5pm via [employer] Chat Pager #: [phone] OFFICE VISIT Observed: 06/20/2024 8:00 AM Status: COMPLETED Source: [facility] [id number] Pee Whitehead 1980 F Date Provider Department Center 06/20/2024 [id number] TOM [facility] C[facility] No family history on file Level of Service:61839 OK OFFICE/OUTPATIENT NEW LOW MDM 30 MINUTES STREP A CULTURE ONLY Observed: 9:36 PM Status: F Source: [facility] No Group A Beta Streptococcu s Isolated 2 Days PERFORMED BY: [facility] [address] [address] PATHOLOGIST SENIOR RESERVATIONS AGENT DALIA SEARS M.D. Performed By: #### CUSTA ### # [facility] [address] [id number] [facility] UA W/REFLEX CULTURE Collected: 01/13/2024 4:[address] atus: F Source: [facility] TYPE CODE TESTS RESULT OUT OF RANGE REFERENCE UNITS LAB UCO(LOINC) Color Yellow YEL LAB UTU(LOINC) Clarity, Urine Clear CLEAR LAB UGL(LOINC) Glucose,Semi-q nt,Ur 3+ Abnormal NEG mg/dL LAB UBI(LOINC) Bilirubin, SemiQt,Ur NEGATIVE NEG LAB UKE(LOINC) Ketones, Urine NEGATIVE NEG mg/dL LAB USG(LOINC) Spec. [place],Ur >1.030 High 1.010-1.020 LAB UHB(LOINC) Blood, Urine NEGATIVE NEG LAB UPH(LOINC) PH,Ur 6.0 5.0-9.0 LAB UPR(LOINC) Protein, Semi-qnt,Ur NEGATIVE NEG mg/dL LAB UUR(LOINC) Urobilinogen,U r Normal 0.0-1.0 EU/dL LAB UNI(LOINC) Nitrite,Ur NEGATIVE NEG LAB ULE(LOINC) Leukocyte Esterase NEGATIVE NEG Performed By: #### UMICAO, U AX #### [facility] [address] [place] [address] Wheel Roller: Zelalem Velázquez MD URINALYSIS,MICRO Collected: 4:20 PM Status: F Source: [facility] TYPE CODE TESTS RESULT OUT OF RANGE REFERENCE UNITS LAB UWBC(LOINC) Urine WBC's None 0-5 /HPF LAB URBC(LOINC) Urine RBC's 0 TO 2 0-2 /HPF LAB EPITH(LOINC) Epithelial cells 0 TO 2 0-25 /HPF LAB BACT(LOINC) Bacteria 1+ Abnormal NONE LAB MUC(LOINC) Mucus Strands TRACE Abnormal NONE Performed By: #### UMICAO, U AX #### [facility] [address] [place] [address] Wheel Roller: Zelalem Velázquez MD THYROID STIM. HORM. Collected: 01/13/2024 2:[address] atus: F Source: [facility] TYPE CODE TESTS RESULT OUT OF RANGE REFERENCE UNITS LAB TSH(LOINC) Thyroid Stim. Horm. 1.57 0.27-4.20 uIU/mL Performed By: #### TSH #### [facility] [address] [place] [address] Wheel Roller: Zelalem Velázquez MD CBC WITH DIFF Collected: 01/13/2024 2:58 PM Status: F Source: [facility] TYPE CODE TESTS RESULT OUT OF RANGE REFERENCE UNITS LAB WBC(LOINC) WBC Count 13.4 High 3.5-11.3 k/uL LAB RBC(LOINC) RBC Count 4.91 3.95-5.11 m/uL LAB HGB(LOINC) Hemoglobin 14.0 11.9-15.1 g/dL LAB HCT(LOINC) Hematocrit 43.3 36.3-47.1 % LAB MCV(LOINC) MCV 88.2 82.6-102.9 fL LAB MCH(LOINC) MCH 28.5 25.2-33.5 pg LAB MCHC(LOINC) MCHC 32.3 28.4-34.8 g/dL LAB RDW(LOINC) RDW 13.6 11.8-14.4 % LAB PLT(LOINC) Platelet Count 452 138-453 k/uL LAB MPVX(LOINC) MPV 10.0 8.1-13.5 fL LAB NRBCS(LOINC) NRBC Automated 0.0 0.0 per 100 WBC LAB SEG(LOINC) Neutrophil (Seg) 68 High 36-65 % LAB LYM(LOINC) Lymphocyte 22 Low 24-43 % LAB MON(LOINC) Monocyte 8 3-12 % LAB EO(LOINC) Eosinophil 1 1-4 % LAB BASO(LOINC) Basophil 0 0-2 % LAB IGRAN(LOINC) Immature Granulocyte 1 High 0 % LAB ASEG(LOINC) Abs.Neutrophil (Seg) 9.08 High 1.50-8.10 k/uL LAB ALYM(LOINC) Abs. Lymph 2.98 1.10-3.70 k/uL LAB AMONO(LOINC) Abs. Monocyte 1.12 0.10-1.20 k/u L LAB AEO(LOINC) Abs. Eosinophil 0.10 0.00-0.44 k/u L LAB ABASO(LOINC) Abs. Basophil 0.06 0.00-0.20 k/u L LAB AIGRAN(LOINC) Abs.Imm.Granulo cyte 0.10 0.00-0.30 k/uL Performed By: #### CP, CDP # ### [facility] [address] [place] [address] Wheel Roller: Zelalem Velázquez MD COMP METABOLIC PROF Collected: 01/13/20 24 2:58 PM Status: F Source: [facility] TYPE CODE TESTS RESULT OUT OF RANGE REFERENCE UNITS LAB NA(LOINC) NA (Sodium) 137 136-145 mmol/L LAB K(LOINC) K (Potassium) 4.2 3.7-5.3 mmol/L LAB CL(LOINC) Chloride 101 98-107 mmol/L LAB HCO(LOINC) CO2 25 20-31 mmol/L LAB GAP(LOINC) Anion Gap 11 9-16 mmol/L LAB GLU(LOINC) Glucose 112 High 74-99 mg/dL LAB BUN(LOINC) BUN (Urea N) 24 High 6-20 mg/dL LAB CRE(LOINC) Creatinine 0.7 0.50-0.90 mg/dL LAB EGFR(LOINC) eGFR >90 >60 mL/min/1. 73m2 Result Comment: These results are not intended [...] following therapy that affects renal tubular secretion. LAB BUNCRE(LOINC) BUN/CRE Ratio 34 High 9-20 LAB CA(LOINC) Calcium 9.9 8.6-10.4 mg/dL LAB TP(LOINC) Protein, Total 7.8 6.6-8.7 g/dL LAB ALB(LOINC) Albumin 4.4 3.5-5.2 g/dL LAB AG(LOINC) Albumin/Glob Ratio 1.3 1.0-2.5 LAB TBIL(LOINC) Bilirubin, Total <0.2 0.00-1.20 mg/dL LAB ALP(LOINC) Alkaline Phos 87 35-104 U/L LAB ALT(LOINC) ALT 25 10-35 U/L LAB AST(LOINC) AST 17 10-35 U/L Performed By: #### CP, CDP # ### [facility] [address] [place] [address] Wheel Roller: Zelalem Velázquez MD CBC AND AUTO DIFF Collected: 12/21/2023 11:39 A M Status: COMPLETED Source: [facility] TYPE CODE TESTS RESULT OUT OF RANGE REFERENCE UNITS LAB WBC(LOINC) WBC COUNT 8.4 4.0-11.0 X10E9/L LAB RBC(LOINC) RBC COUNT 4.31 3.80-5.20 X10E12/L LAB HGB(LOINC) HEMOGLOBIN 12.4 11.7-15.5 g/dL LAB HCT(LOINC) HEMATOCRIT 37.4 35-47 % LAB MCV(LOINC) MCV 87 80-100 fL LAB MCH(LOINC) MCH 28.8 27-34 pg LAB MCHC(LOINC) MCHC 33.1 32-36 g/dL LAB RDW(LOINC) RDW 14.4 11.5-15.0 % LAB PLTC(LOINC) PLATELET COUNT 325 150-450 X10E9 /L LAB MPV(LOINC) MPV 8.8 7-12 fL LAB NEUT(LOINC) % NEUTROPHILS 67.3 % LAB LYMP(LOINC) % LYMPHOCYTES 28.1 % LAB MONO(LOINC) % MONOCYTES 3.0 % LAB EOS(LOINC) % EOSINOPHILS 1.2 % LAB BASO(LOINC) % BASOPHILS 0.4 % LAB ANEUT(LOINC) ABSOLUTE NEUTROPHIL 5.7 1.5-6.6 X10E9/L LAB ALYMP(LOINC) ABSOLUTE LYMPHOCYTE 2.4 1.0-3.5 X10E9/L LAB AMONO(LOINC) ABSOLUTE MONOCYTE 0.3 0-0.9 X10E9/L LAB AEOS(LOINC) ABSOLUTE EOSINOPHIL 0.1 0.0-0.4 X10E9/L LAB ABASO(LOINC) ABSOLUTE BASOPHIL 0.0 0.0-0.2 X10E9/L Performed By: #### CBCA, BMP , FEPR, 2276-4 #### [facility] ([id number]) [address] [place] [address], [address] [place] [address] BASIC METABOLIC PANL Collected: 12/21/2023 11:3 9 AM Status: COMPLETED Source: [facility] TYPE CODE TESTS RESULT OUT OF RANGE REFERENCE UNITS LAB NA(LOINC) SODIUM 138 134-146 mmol/L LAB K(LOINC) POTASSIUM 4.2 3.5-5.0 mmol/L LAB CL(LOINC) CHLORIDE 106 98-109 mmol/L LAB CO2(LOINC) CARBON DIOXIDE 22 22-32 mmol/L LAB AGAP(LOINC) ANION GAP 10 5-15 mmol/L LAB BUN(LOINC) BLOOD UREA NITROGEN 18 5-23 mg/dL LAB CRET(LOINC) CREATININE 0.70 0.40-1.00 mg/dL Result Comment: METHOD TRACE ABLE TO IDMS STANDARD LAB GLU(LOINC) GLUCOSE 89 65-99 mg/dL LAB CA(LOINC) CALCIUM 8.9 8.5-10.5 mg/dL LAB EGFR(LOINC) eGFR (CKD-EPI) NON-RACE DEPENDENT >90 >59 ml/min/1. 73sq.m Result Comment: Reported eGFR is based on the CKD-EPI 2020 equation that does not use a race coefficient. Performed By: #### CBCA, BMP , FEPR, 2276-4 #### [facility] ([id number]) [address] [place] [address], [address] [place] [address] IRON PROFILE Collected: 11:39 AM Status: COMPLETED Source: [facility] TYPE CODE TESTS RESULT OUT OF RANGE REFERENCE UNITS LAB FE(LOINC) IRON 53 50-170 ug/dL LAB TIBC(LOINC) IRON BINDING 374 250-425 ug/dL LAB SAT(LOINC) IRON SATURATION 14 Low 15-50 % SATURATION Performed By: #### CBCA, BMP , FEPR, 2276-4 #### [facility] ([id number]) [address], [address] [place] [address] FERRITIN Collected: 12/21/2023 11:39 AM Status: COMPLETED Source: [facility] TYPE CODE TESTS RESULT OUT OF RANGE REFERENCE UNITS LAB [facility]ERR[facility]) FERRITIN 195 11-307 ng/mL Performed By: #### CBCA, BMP , FEPR, 2276-4 #### [facility] ([id number]) [address], [address] [place] [address] CT ABDOMEN PELVIS W IV CONTRAST Observed: 10/07/2023 10:24 AM Status: F Source: [facility] EXAMINATION: CT OF THE ABDOMEN AND PELVIS [...] significant stool or gas noted. Evidence of [id number]-gqxiwpac diverticulosis of proximal sigmoid colon and descending colon without evidence of diverticulitis. No evidence of colitis. No pericolic inflammatory change. Pelvis: No abnormal fluid collection or inflammatory process in the pelvis. No pelvic mass or pathologic lymphadenopathy. Normal uterus. No adnexal mass. Peritoneum/Retroperitoneum: No periaortic or mesenteric pathologic lymphadenopathy. No [...] by: Zoë Nicole MD 10/07/23 Final result CBC WITH DIFF Collected: 10/06/2023 11:30 PM Status: F Source: [facility] TYPE CODE TESTS RESULT OUT OF RANGE REFERENCE UNITS LAB WBC(LOINC) WBC Count 9.7 3.5-11.3 k/uL LAB RBC(LOINC) RBC Count 4.68 3.95-5.11 m/uL LAB HGB(LOINC) Hemoglobin 13.4 11.9-15.1 g/dL LAB HCT(LOINC) Hematocrit 40.1 36.3-47.1 % LAB MCV(LOINC) MCV 85.7 82.6-102.9 fL LAB MCH(LOINC) MCH 28.6 25.2-33.5 pg LAB MCHC(LOINC) MCHC 33.4 28.4-34.8 g/dL LAB RDW(LOINC) RDW 13.5 11.8-14.4 % LAB PLT(LOINC) Platelet Count 292 138-453 k/uL LAB MPVX(LOINC) MPV 10.5 8.1-13.5 fL LAB NRBCS(LOINC) NRBC Automated 0.0 0.0 per 100 WBC LAB SEG(LOINC) Neutrophil (Seg) 67 High 36-65 % LAB LYM(LOINC) Lymphocyte 25 24-43 % LAB MON(LOINC) Monocyte 7 3-12 % LAB EO(LOINC) Eosinophil 1 1-4 % LAB BASO(LOINC) Basophil 0 0-2 % LAB IGRAN(LOINC) Immature Granulocyte 0 0 % LAB ASEG(LOINC) Abs.Neutrophil (Seg) 6.50 1.50-8.10 k/uL LAB ALYM(LOINC) Abs. Lymph 2.41 1.10-3.70 k/uL LAB AMONO(LOINC) Abs. Monocyte 0.69 0.10-1.20 k/u L LAB AEO(LOINC) Abs. Eosinophil 0.08 0.00-0.44 k/u L LAB ABASO(LOINC) Abs. Basophil 0.03 0.00-0.20 k/u L LAB AIGRAN(LOINC) Abs.Imm.Granulo cyte 0.03 0.00-0.30 k/uL Performed By: #### LIP, CP, TROPI, CDP #### [facility] Lab [address] [place] [address] Wheel Roller: Zelalem Velázquez MD COMP METABOLIC PROF Collected: 10/06/19 24 11:30 PM Status: F Source: [facility] TYPE CODE TESTS RESULT OUT OF RANGE REFERENCE UNITS LAB NA(LOINC) NA (Sodium) 139 135-144 mmol/L LAB K(LOINC) K (Potassium) 3.6 Low 3.7-5.3 mmol/L LAB CL(LOINC) Chloride 103 98-107 mmol/L LAB HCO(LOINC) CO2 25 20-31 mmol/L LAB GAP(LOINC) Anion Gap 11 9-17 mmol/L LAB GLU(LOINC) Glucose 92 70-99 mg/dL LAB BUN(LOINC) BUN (Urea N) 18 6-20 mg/dL LAB CRE(LOINC) Creatinine 0.6 0.5-0.9 mg/dL LAB EGFR(LOINC) eGFR >90 >60 mL/min/1. 73m2 Result Comment: These results are not intended [...] following therapy that affects renal tubular secretion. LAB BUNCRE(LOINC) BUN/CRE Ratio 30 High 9-20 LAB CA(LOINC) Calcium 8.8 8.6-10.4 mg/dL LAB TP(LOINC) Protein, Total 7.0 6.4-8.3 g/dL LAB ALB(LOINC) Albumin 4.1 3.5-5.2 g/dL LAB AG(LOINC) Albumin/Glob Ratio 1.4 1.0-2.5 LAB TBIL(LOINC) Bilirubin, Total 0.2 Low 0.3-1.2 mg/dL LAB ALP(LOINC) Alkaline Phos 85 35-104 U/L LAB ALT(LOINC) ALT 12 5-33 U/L LAB AST(LOINC) AST 14 <32 U/L Performed By: #### LIP, CP, TROPI, CDP #### [facility] Lab [address] [place] [address] Wheel Roller: Zelalem Velázquez MD LIPASE Collected: 4 11:30 PM Status: F Source: [facility] TYPE CODE TESTS RESULT OUT OF RANGE REFERENCE UNITS LAB LIP(LOINC) Lipase 28 13-60 U/L Performed By: #### LIP, CP, TROPI, CDP #### [facility] Lab [address] [place], [place] [id number] Wheel Roller: Zelalem Velázquez MD TROPONIN Collected: 11:30 PM Status: F Source: [facility] TYPE CODE TESTS RESULT OUT OF RANGE REFERENCE UNITS LAB HSTROP(LOINC) Troponin, High Sens <6 0-14 ng/L Result Comment: High Sensiti vity Troponin values cannot be compared with other Troponin methodologies. Performed By: #### LIP, CP, TROPI, CDP #### [facility] [address] [place], [place] [address] Wheel Roller: Zelalem Velázquez MD CT CHEST PULMONARY EMBOLISM W CONTRAST Observed: 10/05/2023 9:17 PM Status: F Source: [facility] EXAMINATION: CTA OF THE CHEST 10/05/2023 7:35 [...] by: Fernando Marcelino MD 10/05/23 Final result TROPONIN Collected: 10/05/2023 8:05 PM Status: F Source: [facility] TYPE CODE TESTS RESULT OUT OF RANGE REFERENCE UNITS LAB HSTROP(LOINC) Troponin, High Sens <6 0-14 ng/L Result Comment: High Sensiti vity Troponin values cannot be compared with other Troponin methodologies. Performed By: #### TROPI ### # [facility] [address] [place] [address] Wheel Roller: Zelalem Velázquez MD XR CHEST PORTABLE Observed: 10/05/2023 7:46 PM Status: F Source: [facility] EXAMINATION: ONE XRAY VIEW OF THE CHEST [...] by: Deyanira Lock MD 10/05/23 Final result LIVER PROFILE Collected: 10/05/2023 7:10 PM Status: F Source: [facility] TYPE CODE TESTS RESULT OUT OF RANGE REFERENCE UNITS LAB ALB(LOINC) Albumin 4.4 3.5-5.2 g/dL LAB ALP(LOINC) Alkaline Phos 99 35-104 U/L LAB ALT(LOINC) ALT 13 5-33 U/L LAB AST(LOINC) AST 16 <32 U/L LAB TBIL(LOINC) Bilirubin, Total 0.2 Low 0.3-1.2 mg/dL LAB DBILI(LOINC) Bilirubin, Direct <0.1 <0.3 mg/dL LAB IBIL(LOINC) Bilirubin, Indirect Can not be calculated 0.0-1.0 mg/dL LAB TP(LOINC) Protein, Total 7.5 6.4-8.3 g/dL LAB AG(LOINC) Albumin/Glob Ratio 1.4 1.0-2.5 Performed By: #### LIVP #### [facility] Lab [address] [place] [address] Wheel Roller: Zelalem Velázquez MD CBC WITH DIFF Collected: 10/05/2023 7:10 PM Status: F Source: [facility] TYPE CODE TESTS RESULT OUT OF RANGE REFERENCE UNITS LAB WBC(LOINC) WBC Count 8.2 3.5-11.3 k/uL LAB RBC(LOINC) RBC Count 4.89 3.95-5.11 m/uL LAB HGB(LOINC) Hemoglobin 14.1 11.9-15.1 g/dL LAB HCT(LOINC) Hematocrit 42.6 36.3-47.1 % LAB MCV(LOINC) MCV 87.1 82.6-102.9 fL LAB MCH(LOINC) MCH 28.8 25.2-33.5 pg LAB MCHC(LOINC) MCHC 33.1 28.4-34.8 g/dL LAB RDW(LOINC) RDW 13.5 11.8-14.4 % LAB PLT(LOINC) Platelet Count 296 138-453 k/uL LAB MPVX(LOINC) MPV 10.9 8.1-13.5 fL LAB NRBCS(LOINC) NRBC Automated 0.0 0.0 per 100 WBC LAB SEG(LOINC) Neutrophil (Seg) 62 36-65 % LAB LYM(LOINC) Lymphocyte 30 24-43 % LAB MON(LOINC) Monocyte 7 3-12 % LAB EO(LOINC) Eosinophil 1 1-4 % LAB BASO(LOINC) Basophil 0 0-2 % LAB IGRAN(LOINC) Immature Granulocyte 0 0 % LAB ASEG(LOINC) Abs.Neutrophil (Seg) 5.10 1.50-8.10 k/uL LAB ALYM(LOINC) Abs. Lymph 2.42 1.10-3.70 k/uL LAB AMONO(LOINC) Abs. Monocyte 0.53 0.10-1.20 k/u L LAB AEO(LOINC) Abs. Eosinophil 0.11 0.00-0.44 k/u L LAB ABASO(LOINC) Abs. Basophil <0.03 0.00-0.20 k/u L LAB AIGRAN(LOINC) Abs.Imm.Granulo cyte 0.03 0.00-0.30 k/uL Performed By: #### CDP, BMP, DIME, TROPI #### [facility] [address] [place] [address] Wheel Roller: Zelalem Velázquez MD BASIC METABOLIC PROF Collected: 7:10 PM Status: F Source: [facility] TYPE CODE TESTS RESULT OUT OF RANGE REFERENCE UNITS LAB NA(LOINC) NA (Sodium) 141 135-144 mmol/L LAB K(LOINC) K (Potassium) 3.8 3.7-5.3 mmol/L LAB CL(LOINC) Chloride 105 98-107 mmol/L LAB HCO(LOINC) CO2 26 20-31 mmol/L LAB GAP(LOINC) Anion Gap 10 9-17 mmol/L LAB GLU(LOINC) Glucose 96 70-99 mg/dL LAB BUN(LOINC) BUN (Urea N) 14 6-20 mg/dL LAB CRE(LOINC) Creatinine 0.6 0.5-0.9 mg/dL LAB EGFR(LOINC) eGFR >90 >60 mL/min/1. 73m2 Result Comment: These results are not intended [...] following therapy that affects renal tubular secretion. LAB BUNCRE(LOINC) BUN/CRE Ratio 23 High 9-20 LAB CA(LOINC) Calcium 8.9 8.6-10.4 mg/dL Performed By: #### CDP, BMP, DIME, TROPI #### [facility] Lab [address] [place] [address] Wheel Roller: Zelalem Velázquez MD TROPONIN Collected: 10/05/2023 7:10 PM Status: F Source: [facility] TYPE CODE TESTS RESULT OUT OF RANGE REFERENCE UNITS LAB HSTROP(LOINC) Troponin, High Sens <6 0-14 ng/L Result Comment: High Sensiti vity Troponin values cannot be compared with other Troponin methodologies. Performed By: #### CDP, BMP, DIME, TROPI #### [facility] Lab [address] [place] [address] Wheel Roller: Zelalem Velázquez MD D-DIMER TEST Collected: 4 7:10 PM Status: F Source: [facility] TYPE CODE TESTS RESULT OUT OF RANGE REFERENCE UNITS LAB KATHY(INC) D-Dimer Test 0.30 0.00-0.59 ug/mL FEU Result Comment: When combined with a low [...] patients with distal DVT. Performed By: #### MARY, SHAWNA, DIME, TROPI #### [facility] Lab [address] [place] [address] Wheel Roller: Zelalem Velázquez MD ALLERGIES DATE TYPE / CODE NAME / CODE REACTION SEVERITY SOURCE 04/15/2022 Drug Class/6860173 03(SNOMED CT) BIGUANIDES Other~Unknown [facility] 04/15/2022 DRUG INGREDI~NON-C BORD/31092466 3(SNOMED CT) METFORMIN [facility] 04/15/2022 DRUG INGREDI~Envir on~NON-CBORD/ 324632532(SNO MED CT) POISON SAVANNAH EXTRACT [facility] 09/15/2016 DRUG INGREDI~NON-C BORD/47423705 3(SNOMED CT) CITALOPRAM [facility] 09/15/2016 DRUG INGREDI~NON-C BORD/58197007 3(SNOMED CT) CEPHALEXIN [facility] 07/14/2013 DRUG INGREDI/09990 1003(SNOMED CT) CEPHALEXIN Hives~Other~Unkn own High [facility] 07/14/2013 DRUG INGREDI/38560 1003(SNOMED CT) CITALOPRAM Hives~Unknown [facility] ENCOUNTERS ADMIT/DISCHARGE ACCOUNT NUMBER ADMITTING ENCOUNTER CLASS LOCATION SOURCE 07/16/2024 [id number] Emergency Building:[facility] Room: 06Bed: [address] [place] [address] 06/30/2024/07/01/19 [id number] [facility] OB [facility] 06/27/2024/06/28/19 [id number] Ambulatory PM [place]PM [facility] 06/20/2024/06/21/19 25 [id number] Ambulatory Building:HRT [facility] 06/20/2024 [id number] Ambulatory Building:HVC C [facility] 06/13/2024/06/14/19 [id number] Ambulatory Building:NOM S ENT [facility] 05/26/2024/05/27/19 25 [id number] Amb[facility] OB [facility] 05/10/2024/05/11/19 25 [id number] Ambulatory Building:BSR NEURO [facility] 05/09/2024/05/10/19 25 [id number] Ambulatory PM [place]:PM [facility] 04/28/2024/04/28/19 25 [id number] Ambulatory Building:NOM S SH ENT [facility] 04/18/2024/04/18/19 25 [id number] Amb[facility] OB [facility] 04/07/2024/04/07/19 25 [id number] Ambulatory Building:NOM S SH ENDO [facility] 03/09/2024/03/09/19 25 [id number] [facility] 02/09/2024 [id number] Ambulatory Building:[facility] 02/01/2024/02/01/20 24 [id number] Ambulatory PM [place]:PM [facility] 01/26/2024/01/26/20 24 [id number] Ambulatory Building:[facility] 01/13/2024/01/13/20 24 [id number] Emergency Building:[facility] Room: 03Bed: 03 [facility] 01/11/2024/01/11/20 24 [id number] Ambulatory PM [place]:PM [facility] 12/21/2023/12/21/19 24 [id number] Ambulatory Building:PFM _LAB [facility] 12/15/2023/12/15/19 24 [id number] Ambulatory Building:[facility] 12/01/2023/12/01/19 24 [id number] Ambulatory Building:[facility] 11/30/2023/11/30/19 24 [id number] Ambulatory Building:BSR NEURO [facility] 11/17/2023/11/17/19 24 [id number] Ambulatory Building:[facility] 11/16/2023/11/16/19 24 [id number] Ambulatory PM [place]:PM [facility] 10/20/2023/10/20/19 24 [id number] Ambulatory Building:[facility] 10/08/2023/10/08/19 24 [id number] [address] [place] [address] 10/06/2023/10/07/19 24 [id number] Emergency Building:[facility] Room: 08Bed: 08 [facility] 10/05/2023/10/05/19 24 [id number] Emergency Building:[facility] Room: 03Bed: 03 [facility] 10/05/2023/10/05/19 24 [id number] Emergency Building:PFM _ED [facility] 09/15/2023/09/15/19 24 [id number] Ambulatory Building:[facility] 09/07/2023/09/07/19 24 [id number] Ambulatory Building:[facility] 09/01/2023/09/01/19 24 [id number] Ambulatory Building:[facility] 08/26/2023/08/26/19 24 [id number] Ambulatory Building:[facility] 08/21/2023/08/21/19 24 [id number] Ambulatory Building:[facility] 08/13/2023/08/13/19 24 [id number] Ambulatory Building:BSR NEURO [facility] 08/11/2023/08/11/19 24 [id number] Ambulatory Building:[facility] 08/04/2023/08/04/19 24 [id number] Ambulatory Building:[facility] 07/29/2023/07/29/19 24 [id number] Ambulatory Building:[facility] PAYERS ENCOUNTER GUARANTOR PAYER SUBSCRIBER SOURCE 07/16/2024 PEE MODI: 1980 [address] [place], [place] [address]Isf: () Primary [facility] PLANPolicy Number: [id number] Date:2013-03-02[address], [place] [address]IX: PEE ROBERTB: [id number] [address] [address] [address] [place], [place] [address]Wtu: (HP) (WP) [facility] 06/30/2024 PEE KAYE: [place] [address]Mir: (HP) Primary Insurance:[facility] MEDICAIDPolicy Number: [id number] Date:2013-03-02 PEE A ROSE CANADAB: [id number] [place] [address] [facility] EP[facility] 06/27/2024 Pee Kerline TeaganDOB: [id number] [address] [address] Primary Insurance:[facility] MercyPolicy Number: Effective Date:0448-16-70Fpus Name:[address] [address]DW: Pee A RoseJuan ManuelBassamDOB: [id number] [address] [facility] 06/20/2024 Primary Insurance:[facility] MEDICAIDPolicy Number: [id number] Date:2013-03-02 PEE ROSEJuan ManuelBASSAMDOB: [id number] [place] [address] [facility] 06/20/2024 Primary Insurance:[facility] MEDICAIDPolicy Number: [id number] Date:2013-03-02 PEE ROSEJuan ManuelBASSAMDOB: [id number] [place] [address] [facility] 06/13/2024 PEE GUTIERREZDOB: [place] [address]Mqq: (HP) Primary Insurance:[employer] [employer] MEDICAIDPolicy Number: [id number] Date:2013-03-02 PEE Kerline ROSE CANADAB: [id number] [place] [address] [facility] EP[facility] 05/26/2024 PEE GUTIERREZDOB: [place] [address]Gxb: (HP) Primary Insurance:[employer] MEDICAIDPolicy Number: [id number] Date:2013-03-02 PEE Churchill ROSE SANDOVALULLDOB: [id number] [place] [address] [facility] EP[facility] 05/10/2024 PEE Churchill ROSE SHULLDOB: [place] [address]Wpp: (HP) Primary Insurance:[employer] MEDICAIDPolicy Number: [id number] Date:2013-03-02 PEE Churchill ROSE SANDOVALULLDOB: [id number] [place] [address] [facility] EPIC 05/09/2024 Pee A Marco AShullDOB: 9649-33-62OA [address] [address] Primary Insurance:[facility] access hospital Number: Effective Date:0083-00-69Wcfs Name:[address] [address]GI: Pee StricklandShullDOB: [id number] [address] [facility] 04/28/2024 PEE Churchill ROSE SANDOVALULLDOB: [place] [address]Yxo: (HP) Primary Insurance:[employer] MEDICAIDPolicy Number: [id number] Date:2013-03-02 PEE Churchill ROSE SANDOVALULLDOB: [id number] [place] [address] [facility] 04/18/2024 PEE Churchill ROSE SANDOVALULLDOB: [place] [address]Vdw: (HP) Primary Insurance:[employer] MEDICAIDPolicy Number: [id number] Date:2013-03-02 PEE A ROSE SANDOVALULLDOB: [id number] [place] [address] [facility] EP[facility] 04/07/2024 PEE GUTIERREZDOB: [place] [address]Lvu: (HP) Primary Insurance:[facility] [employer] MEDICAIDPolicy Number: [id number] Date:2013-03-02 PEE GUTIERREZDOB: [id number] [place] [address] [facility] EP[facility] 03/09/2024 Pee Gan [address] [address]Stl: (HP) Primary Insurance:Self PayPolicy Number: Effective Date:2024-03-09 [facility] 02/09/2024 PEE WHITEHEADDOB: 1980 [address] [place] [address]Gxq: (HP) Primary Insurance:[facility] PLANPolicy Number: [id number] Date:2013-03-02[address] MoiseToreyLAWRENCE F. QUIGLEY MEMORIAL HOSPITALJOJO CHAVEZ [address]FG: PEE WHITEHEADDOB: 3674-18-14WZWE [address] [place], [place] [address], [place] [address]Bnt: (HP) () [facility] 02/01/2024 Pee SegundokvngDOB: 5356-76-37HH [address] [place] [address] Primary Insurance:[facility] PlanPolicy Number: Effective Date:8397-87-87Dthq Name:[place] [address]WH: Pee WhiteheadDOB: 1237-00-15HFBHR [facility] [address] [address] [facility] 01/26/2024 PEE SEGUNDOKVNGDOB: 1980[address] [address] [place] [address]Pvc: (HP) Primary Insurance:[facility] Hospitalicy Number: [id number] Date:2013-03-02[address] [address]HI: PEE WHITEHEADDOB: 3167-40-00JRDM [address] [address] [place] [address]Kww: (HP) (WP) [facility] 01/13/2024 PEE WHITEHEADDOB: 1980 [address] [address] [address] [place] [address]Cbq: (HP) Primary Insurance:[facility] CAROLIN[facility]olicy Number: [id number] Date:2013-03-02[address] [place] [address]DR: PEE SEGUNDOULLDOB: 7393-53-29HCLN [address] [address] [place] [address]Lrm: (HP) (WP) [facility] 01/11/2024 Pee SegundokvngDOB: 1339-00-05[address] [address] Primary Insurance:[facility] Number: Effective Date:6845-10-52Yfkc Name:MED [address] [place] [address]XW: Pee StricklandShullDOB: 9828-39-80ESJY[address], [place] [address] [facility] 12/21/2023 PEE ROSE SHULLDOB: 3814-28-55[address] [place] [address]Mis: (HP) Primary Insurance:[place] MEDICAIDPolic Number: [id number] Date:2002-10-31 PEE GUTIERREZDOB: 2644-45-56[address]NVY[address], [place] [address]Cut: (HP) (WP) [facility] 12/15/2023 PEE WHITEHEADDOB: 1980 [address] [address] [address] [facility] [address]Ufc: (HP) Primary Insurance:[facility] CAROLIN[facility]olicy Number: [id number] Date:2013-03-02[address] [place] [address]JZ: PEE WHITEHEADB: [id number] [address] [address] [address] [facility], [place] [address]Kue: (HP) (WP) [facility] 12/01/2023 PEE WHITEHEADDOB: 1980 [address] [address] [facility], [place] [address]Byz: (HP) Primary Insurance:[facility] CAROLINAPolicy Number: [id number] Date:2013-03-02[address] [place] [address]BO: PEE WHITEHEADDOB: 5285-00-10PVGS [address] [address] [facility] [address]Mbp: (HP) (WP) [facility] 11/30/2023 PEE ROSE BASSAMDOB: [place] [address]Trh: (HP) Primary Insurance:[facility] [employer] MEDICAIDPolicy Number: [id number] Date:2013-03-02 PEE ROSE DREADB: [id number] [place] [address] [facility] 11/17/2023 PEE WHITEHEADDOB: 1980 [address] [place] [address]Eof: (HP) Primary Insurance:[facility] Number: [id number] Date:2013-03-02[address] [facility] Medical CenterToreyPL[place] [address]FU: PEE WHITEHEADDOB: 8739-66-76YZDP [address] [address] [address] [place] [address]Fdp: (HP) (WP) [facility] 11/16/2023 Pee WhiteheadDOB: 5191-40-01[address] [address] Primary Insurance:Critical access hospital Number: Effective Date:9250-33-39Cprn Name:MED [address] [place] [address]EW: Pee WhiteheadDOB: 2391-29-43YPGGH [address] [address] [facility] 10/20/2023 PEE WHITEHEADDOB: 1980 [address] [address] [place] [address]Idu: (HP) Primary Insurance:[facility] Number: [id number] Date:2013-03-02[address] [place] [address]ME: PEE WHITEHEADDOB: 0388-49-71WGZJ [address] [address] [address] [facility]ITAL[place], [place] [address]Kpa: (HP) (WP) [facility] 10/08/2023 PEE GUTIERREZDOB: 2543-90-56[address] HOSPITALTeresa[place], [place] [address]Gvq: (HP) Primary Insurance:[place] MEDICAIDPolicy Number: [id number] Date:2002-10-31 PEE GUTIERREZDOB: 2458-23-12[address], [place] [address]Ktp: (HP) (WP) [facility] 10/06/2023 PEE WHITEHEADDOB: 1980 [address] [address] [place] [address] [place] [address]Wrj: (HP) Primary Insurance:[facility] CAROLINAPolicy Number: [id number] Date:2013-03-02[address] [place] [address]UT: PEE WHITEHEADDOB: 9143-76-53KHBN [address] [address] [address] [facility] [place] [address]Isk: (HP) (WP) [facility] 10/05/2023 PEE WHITEHEADDOB: 1980 [address] [address] [address] [facility] [address]Imr: (HP) Primary Insurance:[facility] Number: [id number] Date:2013-03-02[address] [place] [address]Y: PEE WHITEHEADDOB: 3644-40-83XSOS [address] [address] [facility] [place] [address]Jht: (HP) () [facility] 10/05/2023 PEE GUTIERREZDOB: 7907-14-79[address], [place] [address]Cbc: (HP) Primary Insurance:[place] MEDICAIDPolicy Number: [id number] Date:2002-10-31 PEE SANDOVALULLDOB: 7940-53-59[address], [place] [address]Btd: (HP) (WP) [facility] 09/15/2023 PEE WHITEHEADDOB: 1980 [address] [address] [address] [place] [address]Efw: (HP) Primary Insurance:[facility] CAROLINAPolicy Number: [id number] Date:2013-03-02[address] [address]MR: PEE WHITEHEADDOB: [id number] [address] [address] [address] [place] [address]Yen: (HP) (WP) [facility] 09/07/2023 PEE WHITEHEADDOB: 1980 [address] [address] [address] [place], [place] [address]Qkl: (HP) Primary Insurance:[facility]olicy Number: [id number] Date:2013-03-02[address] [id number]: PEE WHITEHEADDOB: [id number] [address] [address] [facility] [address]Pkl: (HP) (WP) [facility] 09/01/2023 PEE WHITEHEADDOB: 1980 [address] [address] [place] [address]Pib: (HP) Primary Insurance:[facility] Number: [id number] Date:2013-03-02[address] [address]TE: PEE WHITEHEADDOB: [id number] [address] [address] [address] [place], [place] [address]Ajr: (HP) (WP) [facility] 08/26/2023 PEE WHITEHEADDOB: 1980 [address] [address] [address] [facility], [place] [address]Tdc: (HP) Primary Insurance:[facility]olicy Number: [id number] Date:2013-03-02[address] [place] [address]XQ: PEE SEGUNDOSAMB: [id number] [address] [address] [address] [place], [place] [address]Liu: (HP) (WP) [facility] 08/21/2023 PEE SEGUNDOSAMB: 1980 [address] [address] [address] [place], [place] [address]Zam: (HP) Primary Insurance:[facility] Number: [id number] Date:2013-03-02[address] [place] [address]IL: PEE SEGUNDOKVNGDOB: [id number] [address] [address] [address] [place], [place] [address]Niu: (HP) (WP) [facility] 08/13/2023 [address] [place] [address]Fam: (HP) Primary Insurance:[facility] MEDICAIDPolicy Number: [id number] Date:2013-03-02 PEE CANADAB: [id number] [place] [address] [facility] 08/11/2023 PEE ROBERTB: 1980 [address] [address] [place] [address]Alo: (HP) Primary Insurance:[facility]olicy Number: [id number] Date:2013-03-02[address] [address]SS: PEE WHITEHEADDOB: [id number] [address] [address] [address] [place] [address]Mob: (HP) (WP) [facility] 08/04/2023 PEE WHITEHEADDOB: 1980 [address] [address] [address] [place] [address]Ygs: (HP) Primary Insurance:[facility]olicy Number: [id number] Date:2013-03-02[address] [address]GL: PEE WHITEHEADDOB: [id number] [address] [address] [place] [address]Blm: (HP) (WP) [facility] 07/29/2023 PEE WHITEHEADDOB: 1980 [address] [address] [address] [place] [address]Itd: (HP) Primary Insurance:[facility]olicy Number: [id number] Date:2013-03-02[address] [id number]: PEE WHITEHEADDOB: [id number] [address] [address] [address] [place] [address]Lsy: (HP) () [facility]
[2024-07-22] VITALS (18 sets, daily range): BP systolic 111–143; BP diastolic 60–92; PULSE 73–100; TEMP 36.6; O2SAT 95–100; BMI 39.0
--- OUTSIDE RECORDS SUMMARY | 2024-07-22 21:33 | XMS_ITS | Encounter Summary ---
Author Organization [facility] tem Address [id number] [address] [place] [address] Care Team Providers Care Chief Administrative Officer Name Role Phone Services, [facility] Primary Care Provider Reason for Visit * Reason Onset Date Comments Med Refill 03/08/2020 Encounter Details Date Type Department Care Team (Late st Contact Info) Description 03/08/2020 Refill [facility] Physicians Family Medicine [address] [place] [phone] Amy Cerna LPN Social History Tobacco Use Types Packs/Day Years Used Date Smoking Tobacco: Never Smokeless Tobacco: Never Alcohol Use Standard Drinks/Week Comments No 0 (1 standard drink = 0.6 oz pur e alcohol) PHQ-2 Answer Date Recorded PHQ-2 Score 0 03/04/2018 Childcare Answer Date Recorded Childcare Unknown 07/29/2018 Employment Answer Date Recorded Employment Unknown 07/29/2018 Comments No Sex and Gender Information Value Date Recorded Sex Assigned at Not on file Legal Sex Female 11:45 AM EDT Gender Identity Not on file Sexual Orientation Not on file COVID-19 Exposure Response Date Recorded In the last month, have you been in contact with someone who was confirmed or suspected to have Coronavirus / COVID-19? No / Unsure 03/01/2020 9:23 AM EST documented as of this encounter Plan of Treatment Upcoming Encounters Date Type Department Care Team (Latest Contact Info) Description 08/18/2024 12:30 PM EDT Hospital Encounter [address] [phone] Chepe Ingram MD [address] [place] [address] 08/18/2024 12:30 PM EDT - 08/18/2024 1:30 PM EDT Surgery [address] [phone] Cehpe Ingram MD [address] [place] [address] REPAIR SCAPHOLUNATE [[id number] (CPT )] Scheduled Procedures Name Priority Associated Diagnoses Date/Ti me REPAIR LIGAMENT SCAPHOLUNATE Pre-procedural laboratory examination, Extensor tenosynovitis of finger, Traumatic rupture of other ligament of right wrist initial encounter, Colles' fracture of right radius initial encounter for closed fracture 08/18/2024 12:30 PM EDT TENOSYNOVECTOMY WRIST Pre-procedural laboratory examination, Extensor tenosynovitis of finger, Traumatic rupture of other ligament of right wrist initial encounter, Colles' fracture of right radius initial encounter for closed fracture 08/18/2024 12:30 PM EDT documented as of this encounter Visit Diagnoses Not on filedocumented in this encounter Additional Health Concerns Infection Onset Date Last Indicated Resolved Time COVID-19 Rule-Out 05/25/2020 05/25/2020 05/25/2020 11:52 PM EDT Assessment Noted Time PHQ-9 Depression Total Score: 0 02/16/20 20 9:00 AM EST A Body Mass Index follow-up plan has been documented for the patient 02/10/2020 2:00 PM EST documented as of this encounter Care Teams Chief Administrative Officer Relationship Specialty Start Date End Date [facility], [facility] [address] [place] PCP - General Family Medicine 10/05/23 documented as of this encounter
--- OUTSIDE RECORDS SUMMARY | 2024-07-22 21:33 | XMS_ITS | Encounter Summary ---
Author Organization [facility] Address [address] [place] [address] Care Team Providers Care Software Writer Name Role Phone Zully Key SKEINS YARN EXAMINER Unavailable Shawna Dudley DO Primary Care Provider [phone] Sasha Santos DO Unavailable [phone] Encounter Details Date Type Department Care Team (Late st Contact Info) Description 06/07/2024 Abstract [facility] [address] [facility] [place] [address] Bela Ribeiro LPN Social History Tobacco Use Types Packs/Day Years Used Date Smoking Tobacco: Never Smokeless Tobacco: Never Alcohol Use Standard Drinks/Week Comments Never 0 (1 standard drink = 0.6 oz pur e alcohol) Comments No Sex and Gender Information Value Date Recorded Sex Assigned at Not on file Legal Sex Female 8:01 PM EDT Gender Identity Not on file Sexual Orientation Not on file documented as of this encounter Plan of Treatment Upcoming Encounters Date Type Department Care Team (Late Contact Info) Description 08/04/2024 10:30 AM EDT Office Visit [facility] JA[facility]FF[facility] [address] [place] [address] Cleo Zambrano MD [address] [place] [address] 08/18/2024 9:45 AM EDT Office Visit [facility] [place] [place] [address] [place] [phone] Mendez Ortiz DO [address] [place] [address] 09/26/2024 2:20 PM EDT Office Visit TIGRE MENARD [address] [place] [address] Brittany Neville NP [address] [place], [place] 05/31/2025 1:00 PM EDT Office Visit [facility] [address] [facility] [place] [address] Roel Garber DO [address] [facility] [address] [place], [place] [phone] documented as of this encounter Visit Diagnoses Not on filedocumented in this encounter Care Teams Software Writer Relationship Specialty Start Date End Date Shawna Dudley DO [address] [place] [address] PCP - General Family Medicine 04/14/22 Key Andrea NP [address] [place] [address] Referring Physician Family Medicine 08/13/23 Sasha Santos DO [address] [place] [address] Referring Physician Neurology 05/10/24 documented as of this encounter
--- OUTSIDE RECORDS SUMMARY | 2024-07-22 21:33 | XMS_ITS | Encounter Summary ---
Author Organization [facility] [employer] s tem Address [id number] [address] [place] [address] Care Team Providers Care Exercise Rider Name Role Phone Services, [facility] Primary Care Provider Encounter Details Date Type Department Care Team (Late st Contact Info) Description 05/10/2020 Telephone [facility] Physicians Family Medicine [address] [place] [address] Austin Yin CNA Social History Tobacco Use Types Packs/Day Years Used Date Smoking Tobacco: Never Smokeless Tobacco: Never Alcohol Use Standard Drinks/Week Comments No 0 (1 standard drink = 0.6 oz pur e alcohol) PHQ-2 Answer Date Recorded Total Score 0 05/02/2020 Childcare Answer Date Recorded Childcare Unknown 07/29/2018 Employment Answer Date Recorded Employment Unknown 07/29/2018 Purpose - Life Answer Date Recorded Purpose and direction in life Unknown Comments No Sex and Gender Information Value Date Recorded Sex Assigned at Not on file Legal Sex Female 11:45 AM EDT Gender Identity Not on file Sexual Orientation Not on file COVID-19 Exposure Response Date Recorded In the last month, have you been in contact with someone who was confirmed or suspected to have Coronavirus / COVID-19? No / Unsure 05/10/2020 1:21 PM EST documented as of this encounter Miscellaneous Notes * Telephone Encounter - Austin Yin CMA - 05/10/2020 2:23 PM EST Patient calling requesting for you to increase her actos to 30 mg. States that her blood sugars do not go under 180 at home. Drug Guillermo christie Please advise Austin Yin CMA 05/10/20 1425 * Telephone Encounter - Zelalem Pathak MD - 05/10/2020 2:23 PM EST actos 30mg qd , please take 15mg x2 til complete Mammogram and US ordered for 6 months from now, please arrange * Telephone Encounter - Austin Yin CMA - 05/10/2020 2:23 PM EST Left message for patient to call back * Telephone Encounter - Austin Yin CMA - 05/10/2020 2:23 PM EST Patient called back and is informed of 30mg qd of actos, verbalized understanding documented in this encounter Plan of Treatment Upcoming Encounters Date Type Department Care Team (Latest Contact Info) Description 08/18/2024 12:30 PM EDT Hospital Encounter [address] [address] Chepe Ingram MD [address] [place] [address] 08/18/2024 12:30 PM EDT - 08/18/2024 1:30 PM EDT Surgery [address] [address] Chepe Ingram MD [address] [place] [address] REPAIR SCAPHOLUNATE [[id number] (CPT )] Scheduled Procedures Name Priority Associated [...] PM EDT documented as of this encounter Results * Mammography diagnostic bilateral with CAD (11/06/2020 10:16 AM EDT) Anatomical Region Laterality Modality Breast Bilateral Mammography 11/06/2020 10:1 8 AM EDT Narrative 11/06/2020 10:21 AM EDT MAMM DIAGNOSTIC BILATERAL W CAD 3-D tomosynthesis images of bilateral breasts in CC and MLO projections are obtained. Synthetic C-views of bilateral breasts in CC and MLO projections. HISTORY: Six-month follow-up of bilateral axillary lymph nodes. Prominent right axillary lymph node seen on right shoulder MRI of 03/22/2020. COMPARISON: Mammogram dated 04/30/2020, bilateral axillary ultrasound dated 04/30/2020 FINDINGS: The breasts are almost entirely fatty. No suspicious masses, no architectural distortion, no suspicious calcifications in bilateral breasts. Benign bilateral axillary lymph nodes, no further follow-up needed. No significant interval change. Computer-aided detection was used in the interpretation of this examination. IMPRESSION: Benign findings. No mammographic evidence for malignancy. BIRADS 2 - Benign. Normal interval follow-up in 12 months. OVERALL ASSESSMENT- Benign. A letter of notification will be sent to the patient regarding the results. Finalized by Estrellita Siegel MD on 11/06/2020 10:21 AM 2 a MAMM 1 YR Procedure Note Estrellita Siegel MD - 11/06/2020 MAMM DIAGNOSTIC BILATERAL W CAD 3-D tomosynthesis images of bilateral breasts in CC and MLO projectionsare obtained. Synthetic C-views of bilateral breasts in CC and MLOprojections. HISTORY: Six-month follow-up of bilateral axillary lymph nodes. Prominentright axillary lymph node seen on right shoulder MRI of 03/22/2020. COMPARISON: Mammogram dated 04/30/2020, bilateral axillary ultrasound date04/30/2020 FINDINGS: The breasts are almost entirely fatty. No suspicious masses, no architectural distortion, no suspiciouscalcifications in bilateral breasts. Benign bilateral axillary lymphnodes, no further follow-up needed. No significant interval change. Computer-aided detection was used in the interpretation of thisexamination. IMPRESSION: Benign findings. No mammographic evidence for malignancy. BIRADS 2 - Benign. Normal interval follow-up in 12 months. OVERALL ASSESSMENT- Benign. A letter of notification will be sent to the patient regarding theresults. Finalized by Estrellita Siegel MD on 11/06/2020 10:21 AM 2 a MAMM 1 YR Zelalem Pathak MD IMG MAMMOGRAPHY ORDERABLES F inal Result documented in this encounter Visit Diagnoses Diagnosis Lymph node enlargement- Primary Enlargement of lymph nodes Lymph node enlargement Enlargement of lymph nodes documented in this encounter Additional Health Concerns Infection Onset Date Last Indicated Resolved Time COVID-19 Rule-Out 05/25/2020 05/25/2020 05/25/2020 11:52 PM EDT Assessment Noted Time PHQ-9 Depression Total Score: 0 05/03/19 21 3:00 PM EST A Body Mass Index follow-up plan has been documented for the patient 02/10/2020 2:00 PM EST documented as of this encounter Care Teams Exercise Rider Relationship Specialty Start Date End Date [facility], [facility] [address] [place], [place] PCP - General Family Medicine 10/05/23 documented as of this encounter
--- OUTSIDE RECORDS SUMMARY | 2024-07-22 21:33 | XMS_ITS | Encounter Summary ---
Author Organization [facility] Address [address] [place] [address] Care Team Providers Care Ethnic Studies Professor Name Role Phone Zully, Key MILKING SYSTEM INSTALLER Unavailable Shawna Dudley DO Primary Care Provider [phone] Sasha Santos DO Unavailable [phone] Encounter Details Date Type Department Care Team (Late Contact Info) Description 06/01/2024 Abstract [facility] [address] [facility] [place] [place] [address] Roel Garber [address] [facility] [address] [place], [place] [id number] Social History Tobacco Use Types Packs/Day Years [...] 08/04/2024 10:30 AM EDT Office Visit [facility] [address] [place] [address] Cleo Zambrano MD [address] [place] [address] 08/18/2024 9:45 AM EDT Office Visit [facility] [address] [place] [phone] Mendez Ortiz DO [address] [place], [place] [phone] 09/26/2024 2:20 PM EDT Office Visit TIGRE MENDOZA [address] [place] [phone] Brittany Neville NP [address] [place], [place] 05/31/2025 1:00 PM EDT Office Visit [facility] [address] [facility] [place] [place] [address] Roel Garber DO [address] [facility] [address] [place], [place] [phone] documented as of this encounter Visit Diagnoses Not on filedocumented in this encounter Care Teams Ethnic Studies Professor Relationship Specialty Start Date End Date Shawna Dudley DO [address] [place], [place] [phone] PCP - General Family Medicine 04/14/22 Key Andrea, JO ANN [address] [place] [address] Referring Physician Family Medicine 08/13/23 Sasha Santos DO [address] [place] [address] Referring Physician Neurology 05/10/24 documented as of this encounter
--- OUTSIDE RECORDS SUMMARY | 2024-07-22 21:33 | XMS_ITS | Patient Health Record ---
Author Organization [facility] in [place] Address [address] [place] [address] Care Team Providers Care Archeologist Name Role Phone Rory Driver NP Primary Care Provider Unavailab Luther Cuellarorva Unavailable [phone] Joy Yung Unavailable [phone] Veena Thacker Unavailable [phone] Allergies Allergen (clinical drug ingredient) Drug/Non Drug Allergy documented on EMR Reaction Allergy Type Onset Date Status citalopram CeleXA Unknown Drug Allergy Active Keflex Unknown Drug Allergy Active metformin Metformin Unknown Drug Allergy Active Results Component Value Reference Range Notes FOLATE (Not yet reviewed by provider) Interpretation: Performing Lab: Notes/Report: [facility] , Folate 19.80 8.60-58.90 ng/mL Performing Lab: see note ML - [facility] LB FREE T4 (Not yet reviewed by provider) Interpretation: Performing Lab: Notes/Report: [facility] , Free T4 0.74 0.76-1.46 ng/dL Performing Lab: see note ML - [facility] LB Vitamin B12 (Not yet reviewe d by provider) Interpretation: Performing Lab: Notes/Report: [facility] , Vitamin B12 420.0 193.0-986.0 pg/mL Performing Lab: see note ML - [facility] LB FERRITIN (Not yet reviewed b y provider) Interpretation: Performing Lab: Notes/Report: [facility] , Ferritin 469.0 8.0-252.0 ng/mL Performing Lab: see note ML - [facility] LB FREE T4 (Not yet reviewed by provider) Interpretation: Performing Lab: Notes/Report: [facility] , Free T4 0.81 0.76-1.46 ng/dL Performing Lab: see note ML - [facility] LB IRON AND TIBC (Not yet revie wed by provider) Interpretation: Performing Lab: Notes/Report: [facility] , Iron 65.0 50.0-170.0 ug/dL Total Iron Binding Capacity 352.0 250.0-450.0 ug/dL Percent Iron Saturation 18.5 Performing Lab: see note ML - [facility] LB TSH (Not yet reviewed by pro vider) Interpretation: Performing Lab: Notes/Report: [facility] , Thyroid Stimulating Hormone 1.075 0.358-3.740 uIU/mL Performing Lab: see note ML - [facility] LB VITAMIN D 25 [place] (Not yet rev iewed by provider) Interpretation: Performing Lab: Notes/Report: [facility] , Vitamin D 38.6 >100 ng/mL Potential Toxicity 20-<30 ng/mL Vit D insufficient <20 ng/mL Vit D deficient 30-100 ng/mL Vit D sufficient Performing Lab: see note ML - [facility] LB Vitamin B12 (Not yet reviewe d by provider) Interpretation: Performing Lab: Notes/Report: [facility] , Vitamin B12 370.0 193.0-986.0 pg/mL Performing Lab: see note ML - [facility] LB FERRITIN (Not yet reviewed b y provider) Interpretation: Performing Lab:[facility], [place]. [address] PH:[phone] Notes/Report: FERRITIN 195 11-307 ng/mL PERFORMED AT [facility] [address],[place] [address] CBC AUTO DIFF (Not yet revie wed by provider) Interpretation: Performing Lab: Notes/Report: [facility] , White Blood Count 9.0 4.0-11.0 10 3/uL Red Blood Count 4.93 4.20-5.40 10 6/uL Hemoglobin 14.1 12.0-16.0 g/dL Hematocrit 44.7 36.0-48.0 % Mean Corpuscular Volume 90.7 81.0-99.0 fL Mean Corpuscular Hemoglobin 28.6 26.7-34.0 pg Mean Corpuscular HGB Conc 31.5 29.9-35.2 g/dL Red Cell Distribution Width 13.6 11.0-15.0 % Platelet Count 355 150-450 10 3/uL Mean Platelet Volume 10.0 9.5-13.5 fL Neutrophils Percent Auto 63.7 43.0-75.0 % Lymphocytes Percent Auto 25.7 20.5-60.0 % Monocytes Percent Auto 7.6 1.7-12.0 % Eosinophils Percent Auto 2.5 0.9-7.0 % Basophils Percent Auto 0.3 0.2-2.0 % Immature Granulocytes Pct Auto 0.2 0.0-0.5 % Neutrophils Absolute Auto 5.7 1.4-6.5 10 3/uL Lymphocytes Absolute Auto 2.3 1.2-3.8 10 3/uL Monocytes Absolute Auto 0.7 0.3-0.8 10 3/uL Eosinophils Absolute Auto 0.2 0.0-0.7 10 3/uL Basophils Absolute Auto 0.0 0.0-0.1 10 3/uL Immature Granulocytes Abs Auto 0.02 0.00-0.03 10 3/uL Performing Lab: see note ML - [facility] LB FERRITIN (Not yet reviewed b y provider) Interpretation: Performing Lab: Notes/Report: [facility] , Ferritin 197.0 8.0-252.0 ng/mL Performing Lab: see note - [facility] LB IRON AND TIBC (Not yet revie wed by provider) Interpretation: Performing Lab: Notes/Report: [facility] , Iron 48.0 50.0-170.0 ug/dL Total Iron Binding Capacity 348.0 250.0-450.0 ug/dL Percent Iron Saturation 13.8 Performing Lab: see note ML - [facility] LB VITAMIN D 25 [place] (Not yet rev iewed by provider) Interpretation: Performing Lab: Notes/Report: [facility] , Vitamin D 38.6 30-100 ng/mL Vit D sufficient >100 ng/mL Potential Toxicity 20-<30 ng/mL Vit D insufficient <20 ng/mL Vit D deficient Performing Lab: see note - [facility] LB Vitamin B12 (Not yet reviewe d by provider) Interpretation: Performing Lab: Notes/Report: [facility] , Vitamin B12 379 879-2205 pg/mL Personal Care Home Administrator: Harry Rodriguez PhD, Phone: [phone] Performed at: - [address] [id number] Performing Lab: see note - [facility] LB CBC AUTO DIFF (Not yet revie wed by provider) Interpretation: Performing Lab: Notes/Report: [facility] , White Blood Count 10.1 4.0-11.0 10 3/uL Red Blood Count 5.16 4.20-5.40 10 6/uL Hemoglobin 14.1 12.0-16.0 g/dL Hematocrit 44.6 36.0-48.0 % Mean Corpuscular Volume 86.4 81.0-99.0 fL Mean Corpuscular Hemoglobin 27.3 26.7-34.0 pg Mean Corpuscular HGB Conc 31.6 29.9-35.2 g/dL Red Cell Distribution Width 14.6 11.0-15.0 % Platelet Count 338 150-450 10 3/uL Mean Platelet Volume 10.0 9.5-13.5 fL Neutrophils Percent Auto 70.8 43.0-75.0 % Lymphocytes Percent Auto 21.4 20.5-60.0 % Monocytes Percent Auto 5.8 1.7-12.0 % Eosinophils Percent Auto 1.1 0.9-7.0 % Basophils Percent Auto 0.4 0.2-2.0 % Immature Granulocytes Pct Auto 0.5 0.0-0.5 % Neutrophils Absolute Auto 7.2 1.4-6.5 10 3/uL Lymphocytes Absolute Auto 2.2 1.2-3.8 10 3/uL Monocytes Absolute Auto 0.6 0.3-0.8 10 3/uL Eosinophils Absolute Auto 0.1 0.0-0.7 10 3/uL Basophils Absolute Auto 0.0 0.0-0.1 10 3/uL Immature Granulocytes Abs Auto 0.05 0.00-0.03 10 3/uL Performing Lab: see note - [facility] LB IRON AND TIBC (Not yet revie wed by provider) Interpretation: Performing Lab: Notes/Report: [facility] , Iron 86.0 50.0-170.0 ug/dL Total Iron Binding Capacity 346.0 250.0-450.0 ug/dL Percent Iron Saturation 24.9 Performing Lab: see note ML - [facility] LB PROF CHEM 8 (BAS METB) (Not yet reviewed by provider) Interpretation: Performing Lab: Notes/Report: [facility] , Sodium 141 136-145 mmol/L Potassium 3.9 3.5-5.1 mmol/L Chloride 103 98-107 mmol/L Carbon Dioxide 27.1 21.0-32.0 mmol/L Anion Gap 14.8 Glucose 94 74-106 mg/dL Blood Urea Nitrogen 25.0 7.0-18.0 mg/dL Creatinine 0.83 0.55-1.02 mg/dL Estimated GFR ( Regina >60 >=60 mL/min/1.73m 2 Estimated GFR (Non- Susanne >60 >=60 mL/min/1.73m 2 BUN Creatinine Ratio 30.1 Calcium 8.9 8.5-10.1 mg/dL Performing Lab: see note ML - [facility] VITAMIN D 25 [place] (Not yet rev iewed by provider) Interpretation: Performing Lab: Notes/Report: [facility] , Vitamin D 40.9 <20 ng/mL Vit D deficient 20-<30 ng/mL Vit D insufficient 30-100 ng/mL Vit D sufficient >100 ng/mL Potential Toxicity Performing Lab: see note ML - [facility] LB TSH W/ REFLEX FT4 (Not yet r eviewed by provider) Interpretation: Performing Lab: Notes/Report: [facility] , TSH W/ REFLEX FT4 1.272 0.358-3.740 uIU/mL Performing Lab: see note ML - [facility] LB Vitamin B12 (Not yet reviewe d by provider) Interpretation: Performing Lab: Notes/Report: [facility] , Vitamin B12 817 297-1028 pg/mL [address] [place], [place] [id number] [facility] Personal Care Home Administrator: Harry Rodriguez PhD, Phone: [phone] Performing Lab: see note - [facility] LB CBC AUTO DIFF (Not yet revie wed by provider) Interpretation: Performing Lab: Notes/Report: [facility] , White Blood Count 8.7 4.0-11.0 10 3/uL Red Blood Count 4.74 4.20-5.40 10 6/uL Hemoglobin 13.5 12.0-16.0 g/dL Hematocrit 41.2 36.0-48.0 % Mean Corpuscular Volume 86.9 81.0-99.0 fL Mean Corpuscular Hemoglobin 28.5 26.7-34.0 pg Mean Corpuscular HGB Conc 32.8 29.9-35.2 g/dL Red Cell Distribution Width 13.5 11.0-15.0 % Platelet Count 308 150-450 10 3/uL Mean Platelet Volume 11.1 9.5-13.5 fL Neutrophils Percent Auto 65.1 43.0-75.0 % Lymphocytes Percent Auto 28.0 20.5-60.0 % Monocytes Percent Auto 5.0 1.7-12.0 % Eosinophils Percent Auto 1.3 0.9-7.0 % Basophils Percent Auto 0.3 0.2-2.0 % Immature Granulocytes Pct Auto 0.3 0.0-0.5 % Neutrophils Absolute Auto 5.6 1.4-6.5 10 3/uL Lymphocytes Absolute Auto 2.4 1.2-3.8 10 3/uL Monocytes Absolute Auto 0.4 0.3-0.8 10 3/uL Eosinophils Absolute Auto 0.1 0.0-0.7 10 3/uL Basophils Absolute Auto 0.0 0.0-0.1 10 3/uL Immature Granulocytes Abs Auto 0.03 0.00-0.03 10 3/uL Performing Lab: see note ML - [facility] LB IRON AND TIBC (Not yet revie wed by provider) Interpretation: Performing Lab: Notes/Report: [facility] , Iron 44.0 50.0-170.0 ug/dL Total Iron Binding Capacity 260.0 250.0-450.0 ug/dL Percent Iron Saturation 16.9 Performing Lab: see note ML - [facility] LB PROF 14(COMP METB) (Not yet reviewed by provider) Interpretation: Performing Lab: Notes/Report: [facility] , Sodium 139 136-145 mmol/L Potassium 3.7 3.5-5.1 mmol/L Chloride 105 98-107 mmol/L Carbon Dioxide 25.5 21.0-32.0 mmol/L Anion Gap 12.2 Glucose 154 74-106 mg/dL Blood Urea Nitrogen 15.0 7.0-18.0 mg/dL Creatinine 0.84 0.55-1.02 mg/dL Estimated GFR ( Regina >60 >=60 mL/min/1.73m 2 Estimated GFR (Non- Susanne >60 >=60 mL/min/1.73m 2 BUN Creatinine Ratio 17.9 Calcium 8.7 8.5-10.1 mg/dL Bilirubin Total 0.3 0.2-1.0 mg/dL Aspartate Amino Transferase 38 15-37 U/L Alanine Aminotransferase 70 14-59 U/L Alkaline Phosphatase 90 46-116 U/L Total Protein 7.0 6.4-8.2 g/dL Albumin Level 3.5 3.4-5.0 g/dL Globulin 3.5 Albumin Globulin Ratio 1.0 Performing Lab: see note - [facility] LB Vitamin B12 (Not yet reviewe d by provider) Interpretation: Performing Lab: Notes/Report: [facility] , Vitamin B12 345 414-1503 pg/mL Personal Care Home Administrator: Harry Rodriguez PhD, Phone: [phone] Performed at: - [facility] [place] [address] Performing Lab: see note - [facility] LB XR ankle LT min 3V (Not yet reviewed by provider) Interpretation: Performing Lab: Notes/Report: Source Facility: [place] [address] XRay Report Signed Patient: PEE WHITEHEAD MR#: [id number] : 1980 Acct:[id number] Age/Sex: 43 / F ADM Date: 04/06/24 Loc: RAD Attending Dr: Joy Yung D.P.M. Ordering Physician: Joy Yung D.P.M. Date of Service: 04/06/24 Procedure(s): XR ankle LT min 3V Accession Number(s): [id number] cc: Joy Yung D.P.M.; Loreto Mcneal NP [place] [address] Patient Name: PEE WHITEHEAD MRN: [id number] date: 1980 Sex: F Assigned Patient Location: RAD Current Patient Location: ED.MAIN Accession/Order Number: [id number] Exam Date: 04/06/2024 11:15 Report Date: 04/08/2024 11:28 At the request of: JOY YUNG Procedure: XR ankle LT min 3V PROCEDURE: XR ankle LT min 3V, XR foot LT min 3V COMPARISON: 10/18/2023 HISTORY: Left Ankle And Foot Pain FINDINGS: BONES:Contour deformity of the distal tibia and fibula consistent with remote healed fractures. Moderate degenerative changes of the tibiotalar joint. No acute fracture or dislocation. SOFT TISSUES:Negative. No visible soft tissue swelling. EFFUSION:None visible. OTHER: Negative. XR/XR ankle LT min 3V IMPRESSION: Stable chronic posttraumatic changes No acute abnormality of the foot or ankle Electronically authenticated by: DOMENICA SCHMIDT Date: 04/08/2024 11:28 Dictated By: Domenica Schmidt M.D. Signed By: 04/08/24 1131 DD/ 1128 TD/TT: Cell Tuber Hand: [place] [address] XRay Report Signed Patient: PEE WHITEHEAD MR#: [id number] : 1980 Acct:[id number] Age/Sex: 43 / F ADM Date: 04/06/24 Loc: RAD Attending Dr: Joy Yung D.P.M. Ordering Physician: Joy Yung D.P.M. Date of Service: 04/06/24 Procedure(s): XR ank le LT min 3V Accession Number(s): [id number] cc: Joy Yung D.P.M.; Loreto Mcneal NP [address] [address] Patient Name: PEE WHITEHEAD MRN: [id number] date: 1980 Sex: F Assigned Patient Location: RAD Current Patient Location: ED.MAIN Accession/Order Numb er: [id number] Exam Date: 04/06/2024 11:15 Report Date: 04/08/2024 11:28 At the request of: JOY YUNG Procedure: XR ankle LT min 3V PROCEDURE: XR ankle LT min 3V, XR foot LT min 3V COMPARISON: 10/18/2023 HISTORY: Left Ankle And Foot Pain FINDINGS: BONES:Contour deform ity of the distal tibia and fibula consistent with remote healed fractures. Moderate degenerative changes of the tibiotalar joint. No acute fracture or dislocation. SOFT TISSUES:Negativ e. No visible soft tissue swelling. EFFUSION:None visible. OTHER: Negative. XR/XR ankle LT min 3V IMPRESSION: Stable chronic posttraumatic changes No acute abnormality of the foot or ankle Electronically authenticated by: DOMENICA SCHMIDT Date: 04/08/2024 11:28 Dictated By: Mike Schmidt M.D. Signed By: 04/08/24 1131 DD/ 1128 TD/TT: Cell Tuber Hand: XR foot LT min 3V (Not yet r eviewed by provider) Interpretation: Performing Lab: Notes/Report: Source Facility: [place] [address] XRay Report Signed Patient: PEE WHITEHEAD MR#: [id number] : 1980 Acct:[id number] Age/Sex: 43 / F ADM Date: 04/06/24 Loc: RAD Attending Dr: Joy Yung D.P.M. Ordering Physician: Joy Yung D.P.M. Date of Service: 04/06/24 Procedure(s): XR foot LT min 3V Accession Number(s): [id number] cc: Joy Yung D.P.M.; Loreto Mcneal NP [place] [address] Patient Name: PEE WHITEHEAD MRN: [id number] date: 1980 Sex: F Assigned Patient Location: [facility] Current Patient Location: ED.MAIN Accession/Order Number: [id number] Exam Date: 04/06/2024 11:15 Report Date: 04/08/2024 11:28 At the request of: JOY YUNG Procedure: XR foot LT min 3V PROCEDURE: XR ankle LT min 3V, XR foot LT min 3V COMPARISON: 10/18/2023 HISTORY: Left Ankle And Foot Pain FINDINGS: BONES:Contour deformity of the distal tibia and fibula consistent with remote healed fractures. Moderate degenerative changes of the tibiotalar joint. No acute fracture or dislocation. SOFT TISSUES:Negative. No visible soft tissue swelling. EFFUSION:None visible. OTHER: Negative. XR/XR foot LT min 3V IMPRESSION: Stable chronic posttraumatic changes No acute abnormality of the foot or ankle Electronically authenticated by: DOMENICA SCHMIDT Date: 04/08/2024 11:28 Dictated By: Domenica Schmidt M.D. Signed By: 04/08/24 1131 DD/ 1128 TD/TT: Cell Tuber Hand: [place] [address] XRay Report Signed Patient: PEE WHITEHEAD MR#: [id number] : 1980 Acct:[id number] Age/Sex: 43 / F ADM Date: 04/06/24 Loc: RAD Attending Dr: Joy Yung D.P.M. Ordering Physician: Joy Yung D.P.M. Date of Service: 04/06/24 Procedure(s): XR miryam t LT min 3V Accession Number(s): [id number] cc: Joy Yung D.P.M.; Loreto Mcneal INTAKE ASSESSOR [place] [address] Patient Name: PEE WHITEHEAD MRN: [id number] date: 1980 Sex: F Assigned Patient Location: RAD Current Patient Location: ED.MAIN Accession/Order George er: [id number] Exam Date: 04/06/2024 11:15 Report Date: 04/08/2024 11:28 At the request of: JOY YUNG Procedure: XR foot L T min 3V PROCEDURE: XR ankle LT min 3V, XR foot LT min 3V COMPARISON: 10/18/2023 HISTORY: Left Ankle And Foot Pain FINDINGS: BONES:Contour deform ity of the distal tibia and fibula consistent with remote healed fractures. Moderate degenerative changes of the tibiotalar joint. No acute fracture or dislocation. SOFT TISSUES:Negativ e. No visible soft tissue swelling. EFFUSION:None visible. OTHER: Negative. XR/XR foot LT min 3V IMPRESSION: Stable chronic posttraumatic changes No acute abnormality of the foot or ankle Electronically authenticated by: DOMENICA SCHMIDT Date: 04/08/2024 11:28 Dictated By: Mike Schmidt M.D. Signed By: 04/08/24 1131 DD/ 1128 TD/TT: Cell Tuber Hand: FERRITIN (Not yet reviewed b y provider) Interpretation: Performing Lab: Notes/Report: [facility] , Ferritin 622.0 8.0-252.0 ng/mL Performing Lab: see note ML - [facility] LB IRON PROFILE ([facility]) (No t yet reviewed by provider) Interpretation: Performing Lab:[facility] [address] [place] [address] [address]VE[address] [place] [address]. [address] PH:[phone] Notes/Report: IRON 53 50-170 ug/dL IRON BINDING 374 250-425 ug/dL IRON SATURATION 14 15-50 % SATURATION PERFOR MED AT [address] [place] [address] CBC AND AUTO DIFF * (Not yet reviewed by provider) Interpretation: Performing Lab:[facility]), [facility] [address] [place] [address]. [address] PH:[phone] Notes/Report: WBC COUNT 8.4 4.0-11.0 X10E9/L RBC COUNT 4.31 3.80-5.20 X10E12/L HEMOGLOBIN 12.4 11.7-15.5 g/dL HEMATOCRIT 37.4 35-47 % MCV 87 80-100 fL MCH 28.8 27-34 pg MCHC 33.1 32-36 g/dL RDW 14.4 11.5-15.0 % PLATELET COUNT 325 150-450 X10E9/L MPV 8.8 7-12 fL % NEUTROPHILS 67.3 % LYMPHOCYTES 28.1 % MONOCYTES 3.0 % EOSINOPHILS 1.2 % BASOPHILS 0.4 ABSOLUTE NEUTROPHIL 5.7 1.5-6.6 X10E9/L ABSOLUTE LYMPHOCYTE 2.4 1.0-3.5 X10E9/L ABSOLUTE MONOCYTE 0.3 0-0.9 X10E9/L ABSOLUTE EOSINOPHIL 0.1 0.0-0.4 X10E9/L ABSOLUTE BASOPHIL 0.0 0.0-0.2 X10E9/L PERFORM ED AT [place] [address] [address] [facility], [place] [address] BMP w/GFR (Not yet reviewed by provider) Interpretation: Performing Lab:[facility] [address] [place] [address], [facility] [address], [place]. [address] PH:[phone] Notes/Report: SODIUM 138 134-146 mmol/L POTASSIUM 4.2 3.5-5.0 mmol/L CHLORIDE 106 98-109 mmol/L CARBON DIOXIDE 22 22-32 mmol/L ANION GAP 10 5-15 mmol/L BLOOD UREA NITROGEN 18 5-23 mg/dL CREATININE 0.70 0.40-1.00 mg/dL METHOD TRACE ABLE TO [facility] STANDARD GLUCOSE 89 65-99 mg/dL CALCIUM 8.9 8.5-10.5 mg/dL eGFR (CKD-EPI) NON-RACE DEPENDENT >90 >59 ml/min/1.73sq.m CKD-EPI 2020 equation that does not use a race coefficient. PERFORMED AT [address], [place] [address] Reported eGFR is based on the CBC AUTO DIFF (Not yet revie wed by provider) Interpretation: Performing Lab: Notes/Report: [facility] , White Blood Count 8.4 4.0-11.0 10 3/uL Red Blood Count 5.14 4.20-5.40 10 6/uL Hemoglobin 14.6 12.0-16.0 g/dL Hematocrit 45.4 36.0-48.0 % Mean Corpuscular Volume 88.3 81.0-99.0 fL Mean Corpuscular Hemoglobin 28.4 26.7-34.0 pg Mean Corpuscular HGB Conc 32.2 29.9-35.2 g/dL Red Cell Distribution Width 13.7 11.0-15.0 % Platelet Count 327 150-450 10 3/uL Mean Platelet Volume 10.9 9.5-13.5 fL Neutrophils Percent Auto 63.6 43.0-75.0 % Lymphocytes Percent Auto 26.7 20.5-60.0 % Monocytes Percent Auto 7.7 1.7-12.0 % Eosinophils Percent Auto 1.4 0.9-7.0 % Basophils Percent Auto 0.4 0.2-2.0 % Immature Granulocytes Pct Auto 0.2 0.0-0.5 % Neutrophils Absolute Auto 5.4 1.4-6.5 10 3/uL Lymphocytes Absolute Auto 2.3 1.2-3.8 10 3/uL Monocytes Absolute Auto 0.7 0.3-0.8 10 3/uL Eosinophils Absolute Auto 0.1 0.0-0.7 10 3/uL Basophils Absolute Auto 0.0 0.0-0.1 10 3/uL Immature Granulocytes Abs Auto 0.02 0.00-0.03 10 3/uL Performing Lab: see note ML - [facility] LB TSH (Not yet reviewed by pro vider) Interpretation: Performing Lab: Notes/Report: [facility] , Thyroid Stimulating Hormone 0.538 0.358-3.740 uIU/mL Performing Lab: see note - [facility] LB CBC AUTO DIFF (Not yet revie wed by provider) Interpretation: Performing Lab: Notes/Report: [facility] , White Blood Count 8.3 4.0-11.0 10 3/uL Red Blood Count 4.75 4.20-5.40 10 6/uL Hemoglobin 13.3 12.0-16.0 g/dL Hematocrit 41.3 36.0-48.0 % Mean Corpuscular Volume 86.9 81.0-99.0 fL Mean Corpuscular Hemoglobin 28.0 26.7-34.0 pg Mean Corpuscular HGB Conc 32.2 29.9-35.2 g/dL Red Cell Distribution Width 13.5 11.0-15.0 % Platelet Count 314 150-450 10 3/uL Mean Platelet Volume 10.7 9.5-13.5 fL Neutrophils Percent Auto 63.3 43.0-75.0 % Lymphocytes Percent Auto 27.4 20.5-60.0 % Monocytes Percent Auto 7.3 1.7-12.0 % Eosinophils Percent Auto 1.2 0.9-7.0 % Basophils Percent Auto 0.4 0.2-2.0 % Immature Granulocytes Pct Auto 0.4 0.0-0.5 % Neutrophils Absolute Auto 5.2 1.4-6.5 10 3/uL Lymphocytes Absolute Auto 2.3 1.2-3.8 10 3/uL Monocytes Absolute Auto 0.6 0.3-0.8 10 3/uL Eosinophils Absolute Auto 0.1 0.0-0.7 10 3/uL Basophils Absolute Auto 0.0 0.0-0.1 10 3/uL Immature Granulocytes Abs Auto 0.03 0.00-0.03 10 3/uL Performing Lab: see note ML - [facility] LB VITAMIN D 25 [place] (Not yet rev iewed by provider) Interpretation: Performing Lab: Notes/Report: [facility] , Vitamin D 44.7 20-<30 ng/mL Vit D insufficient 30-100 ng/mL Vit D sufficient >100 ng/mL Potential Toxicity <20 ng/mL Vit D deficient Performing Lab: see note ML - [facility] LB FERRITIN (Not yet reviewed b y provider) Interpretation: Performing Lab: Notes/Report: [facility] , Ferritin 505.0 8.0-252.0 ng/mL Performing Lab: see note ML - [facility] LB Reason For Referral Reason see attached rx Diagnosis 1 Ingrowing nail (L60. 0) Referral Organization [facility]) Referring Provider First Name Veena Referring Provider Last Name Kedar Referring Provider Speciality Podiatry Referred Provider Specialty Pharmacist General Notes Austin Paz 06/2023 11:02:08 AM >Patient wants to get oral medication. Referred to her PCP. Referral Priority Routine Reason Referral to [email or web address] Diagnosis 1 Pain in left ankle a nd joints of left foot (M25.572) Referral Organization [facility] ([facility]) Referring Provider First Name Joy Referring Provider Last Name Dilshad Referring Provider Speciality Podiatry Referred Provider Specialty Lahsandacellnicolle s Referral Priority Routine Medications Medication SIG (Take, Route, Frequency, Duration) Notes Start Date End Date Status Jardiance Active Vyvanse Active LaMICtal Active Meloxicam 15 MG 1 tablet Orally Once a day for 30 days Unknown Latuda Active Meloxicam 15 MG 1 tablet Orally Once a day for 30 days 02/03/2023 Unknown Nexplanon Active traZODone HCl Active Ferrous Sulfate Acti ve Ventolin HFA Active Gabapentin Active Vitamin D Active Cyclobenzaprine HCl 10 MG 1 tablet at be dtime as needed Orally Once a day Active Diclofenac Sodium 25 MG 1 tablet as need ed Orally Four times a day 04/06/2024 Active Ozempic Active Cyclobenzaprine HCl 10 MG 1 tablet at be dtime as needed Orally Once a day 04/06/2024 Active Pepcid Active Actos Active PROzac Active Ros Active tiZANidine HCl Activ e Social History Tobacco Use: Social History Observation Description Date Details (start date - stop date) Never Smoker NA - NA Tobacco Use/Smoking Question Answer Notes Patient is a nonsmoker Problems Problem Type SNOMED Code ICD Code Onset Dates Problem Status W/U Status Risk Notes Problem 35926258 Other chronic pain (G89.29) Active confirmed Problem 631510326 Post-traumatic osteoarthritis , 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) Active confirmed Vital Signs Heart Rate 88 /min 04/06/2024 Temperature 97.5 degrees Fahrenheit 04/06/2024 Oximetry 98 % 04/06/2024 Height 63 in 04/06/2024 Encounters Encounter Location Date Provider Diagnosis [facility] ([facility]) [address] [place] [address] [place] [address] 11/26/2023 Veena Lawen Ingrowing nail L60.0 and Post-traumatic osteoarthritis, left ankle and foot M19.172 [facility] (PODIATRY) [address] [place] [address] [place] [address] 04/06/2024 Joy Yung Post-traumatic osteoarthritis, left ankle and foot M19.172 ; Ingrowing nail L60.0 ; Tinea unguium B35.1 and Pain in left ankle and joints of left foot M25.572 [facility] Oncology [address] [place] [address] 02/22/2024 [facility] [address] [place] [address] 03/29/2024 [facility] [address] [place] [address] 06/14/2024 [facility] [address] [place] [place] [address] 07/28/2023 [facility] [address] [place] [address] 09/29/2023 [facility] [address] [place] [address] 12/22/2023 [facility] [address] [place] [address] 02/11/2024 Carmen Phillip [facility] ([facility]) [address] [place] [address] [place] [address] 11/30/2023 Veena Thacker Assessments Encounter Date Diagnosis (ICD Code) Assessment Notes Treatment Notes Treatment Clinical Notes Section Notes 11/26/2023 Ingrowing nail (ICD-10 - L60.0) The patient is a 43-year-old female who presents for evaluation of ingrown toenail and chronic left ankle pain. The patient has onychomycosis affecting both great toes. She does have mild ingrowing of the left hallux medial nail border. The nail was trimmed in a slant back fashion and she noted pain relief immediately. 11/26/2023 Post-traumatic osteoarthritis , left ankle and foot (ICD-10 - M19.172) The patient also requests corticosteroid injection for the left ankle. After verbal consent the skin over the anterior ankle was prepped using alcohol. An injection consisting of 1 mL lidocaine 1% plain and 1 mL betamethasone was injected into the ankle joint via a medial approach. The site was dressed with a Band-Aid. The patient tolerated the injection well. 04/06/2024 Post-traumatic osteoarthritis , left ankle and [...] patient satisfaction. [facility] may continue to manage on her own with an emery board but will call if additional debridement is needed 04/06/2024 Tinea unguium (ICD-10 - B35.1) 04/06/2024 Pain in left ankle and joints of left foot (ICD-10 - M25.572) Plan Of Treatment Pending Test Test Name Order Date XR Ankle LT (3 views) * (164) 04/06/2024 XR Foot LT (3 views) * 04/06/2024 BMP w/GFR 12/21/2023 CBC AND AUTO DIFF * 12/21/2023 IRON PROFILE ([facility]) 12/21/2023 FERRITIN 12/21/2023 CBC AUTO DIFF 02/01/2024 CBC AUTO DIFF 03/24/2024 CBC AUTO DIFF 06/13/2024 CBC AUTO DIFF 09/29/2023 CBC AUTO DIFF 07/21/2023 CBC AUTO DIFF 08/18/2023 FERRITIN 07/21/2023 FERRITIN 09/29/2023 FERRITIN 02/01/2024 FERRITIN 03/24/2024 FERRITIN 06/13/2024 FOLATE 08/18/2023 FREE T4 08/18/2023 FREE T4 09/29/2023 IRON AND TIBC 09/29/2023 IRON AND TIBC 07/21/2023 IRON AND TIBC 03/24/2024 IRON AND TIBC 02/01/2024 IRON AND TIBC 06/13/2024 PROF 14(COMP METB) 06/13/2024 PROF CHEM 8 (BAS METB) 03/24/2024 TSH 08/18/2023 TSH 09/29/2023 VITAMIN D 25 [place] 09/29/2023 VITAMIN D 25 [place] 03/24/2024 VITAMIN D 25 [place] 02/01/2024 VITAMIN D 25 [place] 06/13/2024 XR foot LT min 3V 04/08/2024 XR ankle LT min 3V 04/08/2024 Vitamin B12 09/29/2023 Vitamin B12 08/18/2023 TSH W/ REFLEX FT4 03/24/2024 Vitamin B12 02/01/2024 Vitamin B12 03/24/2024 Vitamin B12 06/13/2024 Next Appt Details Provider Name:Carmen Fisher , 09/13/2024 11:00:00 AM, [address] [place], [address], Insurance Providers Payer Name Payer Address Payer Phone Subscriber Number Group Number Insured Name Patient Relationship to Insured Coverage Start Date Coverage End Date [employer] [place] [employer] [address] [place] [address] [id number] Pee Wilson Self - patient is the insured 4 Medications Administered Medication Instructions Date of Administration Dosage Notes Betamethasone Acetate 11/26/2023 1 mL Celestone 6mg/mL 08/14/2022 1 mL Celestone 6mg/mL 12/11/2022 1 mL Lidocaine HCl 12/11/2022 1 mL Lidocaine HCl 08/14/2022 1 mL Medical (General) History Medical History History ICD Code 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
--- OUTSIDE RECORDS SUMMARY | 2024-07-22 21:33 | XMS_ITS | Encounter Summary ---
Author Organization [facility] Address [address] [place] [address] Care Team Providers Care Truck Despatcher Name Role Phone Zully, Key SENIOR MARKETING ASSOCIATE Unavailable Shawna Dudley DO Primary Care Provider [phone] Sasha Santos DO Unavailable [phone] Encounter Details Date Type Department Care Team (Late st Contact Info) Description 06/02/2023 Orders Only [facility] [address] [facility] [place] [address] Becky Silvestre LPN [address] [place] [place] [address] Social History Tobacco Use Types Packs/Day Years [...] Office Visit [facility] [address] [place] [address] Cleo Zambrano MD [address] [place] [address] 08/18/2024 9:45 AM EDT Office Visit [facility] [address] [place] [address] Mendez Ortiz DO [address] [place] [address] 09/26/2024 2:20 PM EDT Office Visit TIGRE MENARD [address] [place] [address] Brittany Neville NP [address] [place] [address] 05/31/2025 1:00 PM EDT Office Visit [facility] [address] [facility] [place] [address] Roel Garber DO [address] [place], [place] [phone] documented as of this encounter Procedures Procedure Name Priority Date/Time Associated Diagnosis Comments PAP SMEAR Routine 05/25/2023 12:00 AM EDT documented in this encounter Results * Pap Smear (05/25/2023 12:00 AM EDT) Swab Cervical swab / Unknown Roel Garber DO LAB CYTOLOGY ORDERABLES Final Re sult EXTERNAL LAB documented in this encounter Visit Diagnoses Not on filedocumented in this encounter Care Teams Truck Despatcher Relationship Specialty Start Date End Date Shawna Dudley DO [address] [place] [id number] PCP - General Family Medicine 04/14/22 Key Andrea, JO ANN [address] [place] [address] Referring Physician Family Medicine 08/13/23 Sasha Santos DO [address] [place] [address] Referring Physician Neurology 05/10/24 documented as of this encounter
--- OUTSIDE RECORDS SUMMARY | 2024-07-22 21:33 | XMS_ITS | Encounter Summary ---
Author Organization [facility] tem Address [id number] [address] [place] [address] Care Team Providers Care Communications Technician Name Role Phone Services, [facility] Primary Care Provider Encounter Details Date Type Department Care Team (Late st Contact Info) Description 07/13/[address] [facility] Physicians Family Medicine [address] [place] [phone] Amy Cerna LPN Social History Tobacco Use Types Packs/Day Years Used Date Smoking Tobacco: Never Smokeless Tobacco: Never Alcohol Use Standard Drinks/Week Comments No 0 (1 standard drink = 0.6 oz pur e alcohol) PHQ-2 Answer Date Recorded PHQ-2 Score 0 03/04/2018 Childcare Answer Date Recorded Childcare Unknown 05/26/2018 Employment Answer Date Recorded Employment Unknown 05/26/2018 Comments No Sex and Gender Information Value Date Recorded Sex Assigned at Not on file Legal Sex Female 11:45 AM EDT Gender Identity Not on file Sexual Orientation Not on file documented as of this encounter Plan of Treatment Upcoming Encounters Date Type Department Care Team (Latest Contact Info) Description 08/18/2024 12:30 PM EDT Hospital Encounter [facility] - Surgery [address] [place] [address] Chepe Ingram MD [address] [facility] [place] [address] 08/18/2024 12:30 PM EDT - 08/18/2024 1:30 PM EDT Surgery [facility] - Surgery [address] [place] [address] Chepe Ingram MD [address] [facility] [address] [place] [address] REPAIR SCAPHOLUNATE [[id number] (CPT )] Scheduled Procedures Name Priority Associated [...] Noted Time PHQ-9 Depression Total Score: 0 11/11/19 18 10:00 AM EDT A Body Mass Index follow-up plan has been documented for the patient 07/13/2018 11:12 AM EDT documented as of this encounter Care Teams Communications Technician Relationship Specialty Start Date End Date [facility], [facility] [address] [place], [place] PCP - General Family Medicine 10/05/23 documented as of this encounter
--- OUTSIDE RECORDS SUMMARY | 2024-07-22 21:33 | XMS_ITS | Encounter Summary ---
Author Organization [facility] Address [id number] [address] [place] [address] Care Team Providers Care Personnel Administrator Name Role Phone Services, [facility] Primary Care Provider Encounter Details Date Type Department Care Team (Late st Contact Info) Description 06/02/2023 Orders Only [facility] [address] [place] [address] Deepika Cox MD [address] [facility] [address] [place] [address] Social History Tobacco Use Types Packs/Day Years Used Date Smoking Tobacco: Never Smokeless Tobacco: Never Alcohol Use Standard Drinks/Week Comments No 0 (1 standard drink = 0.6 oz pur e alcohol) PHQ-2 Answer Date Recorded Total Score 0 05/02/2020 Childcare Answer Date Recorded Childcare Unknown 07/29/2018 Employment Answer Date Recorded Employment Unknown 07/29/2018 Hunger Screening Answer Date Recorded Within the past 12 months we worried whether our food would run out before we got money to buy more. Never True 04/28/2023 Within the past 12 months th e food we bought just didn't last and we didn't have money to get more. Never True 04/28/2023 Purpose - Life Answer Date Recorded Purpose [...] Description 08/18/2024 12:30 PM EDT Hospital Encounter [address] [address] Chepe Ingram MD [address] [place] [address] 08/18/2024 12:30 PM EDT - 08/18/2024 1:30 PM EDT Surgery [address] [address] Chepe Ingram MD [address] [place] [address] REPAIR SCAPHOLUNATE [[id number] (CPT )] Scheduled Procedures Name Priority Associated [...] filedocumented in this encounter Additional Health Concerns Assessment Noted Time PHQ-9 Depression Total Score: 0 05/03/19 21 3:00 PM EST A Body Mass Index follow-up plan has been documented for the patient 02/10/2020 2:00 PM EST documented as of this encounter Care Teams Personnel Administrator Relationship Specialty Start Date End Date Services, [facility] [address] [place] PCP - General Family Medicine 10/05/23 documented as of this encounter
--- OUTSIDE RECORDS SUMMARY | 2024-07-22 21:33 | XMS_ITS | Encounter Summary ---
Author Organization [facility] tem Address [facility][id number] [address] [place] [address] Care Team Providers Care Analytics Specialist Name Role Phone Services, [facility] Primary Care Provider Encounter Details Date Type Department Care Team (Late st Contact Info) Description 02/17/2020 Orders Only [facility] [address] [place] [phone] Zelalem Pathak MD [address] Provider retired 05/31/24 [place], [place] [phone] Social History Tobacco Use Types Packs/Day Years [...] have Coronavirus / COVID-19? No / Unsure 02/16/2020 9:25 AM EST documented as of this encounter Plan of Treatment Upcoming Encounters Date Type Department Care Team (Latest Contact Info) Description 08/18/2024 12:30 PM EDT Hospital Encounter [address] [phone] Chepe Ingram MD [address] [facility] [address] [place] [address] 08/18/2024 12:30 PM EDT - 08/18/2024 1:30 PM EDT Surgery [address] [address] Chepe Ingram MD [address] [place] [address] REPAIR SCAPHOLUNATE [[id number] (CPT )] Scheduled Procedures Name Priority Associated [...] documented as of this encounter Care Teams Analytics Specialist Relationship Specialty Start Date End Date Services, [facility] [address] [place], [place] PCP - General Family Medicine 10/05/23 documented as of this encounter
--- OUTSIDE RECORDS SUMMARY | 2024-07-22 21:33 | XMS_ITS | Encounter Summary ---
Author Organization [facility] [employer] [facility] tem Address [id number] [address] [place] [address] Care Team Providers Care Document Clerk Name Role Phone Services, [facility], [facility] Primary Care Provider Encounter Details Date Type Department Care Team (Late st Contact Info) Description 05/02/2020 Telephone [facility] Physicians Family Medicine [address] [place] [address] Austin Yin CNA Social History Tobacco Use [...] have Coronavirus / COVID-19? No / Unsure 05/02/2020 3:05 PM EST documented as of this encounter Miscellaneous Notes * Telephone Encounter - Austin Yin CMA - 05/02/2020 4:42 PM EST Patient called requesting actos instead of metformin. Patient is afraid the metformin will drop herblood sugar too much [facility] Please advise Austin Yin CMA 05/02/20 1643 * Telephone Encounter - Zelalem Pathak MD - 05/02/2020 4:42 PM EST Ok- actos 15mg 1 qd will replace metformin rx [facility] and d/c the metformin rx * Telephone Encounter - Austin Yin CMA - 05/02/2020 4:42 PM EST Spoke with patient regarding the actos prescription. Patient has already picked up the metformin but I informed her not to take this medication and to take the actos instead. Patient verbalized understanding. Called [facility] in [place] and left message for them to call back regarding the metformin. * Telephone Encounter - Austin Yin CMA - 05/02/2020 4:42 PM EST Spoke with pharmacy, they discontinued the metformin and cancelled all future refills documented in this encounter Plan of Treatment Upcoming Encounters Date Type Department Care Team (Latest Contact Info) Description 08/18/2024 12:30 PM EDT Hospital Encounter [address] [phone] Chepe Ingram MD [address] [place] [address] 08/18/2024 12:30 PM EDT - 08/18/2024 1:30 PM EDT Surgery [address] [place] [address] Chepe Ingram MD [address] [facility] [address] [place] [address] REPAIR SCAPHOLUNATE [[id number] (CPT )] Scheduled Procedures Name Priority Associated [...] documented as of this encounter Care Teams Document Clerk Relationship Specialty Start Date End Date Services, [facility], [facility] [address] [place], [place] PCP - General Family Medicine 10/05/23 documented as of this encounter
--- OUTSIDE RECORDS SUMMARY | 2024-07-22 21:33 | XMS_ITS | Encounter Summary ---
Author Organization [facility] tem Address [id number] [address] [place] [address] Care Team Providers Care Manager Intensive Care Name Role Phone Services, [facility] Primary Care Provider Reason for Visit * Reason Onset Date Comments denial 09/22/2018 Encounter Details Date Type Department Care Team (Late st Contact Info) Description 09/22/2018 Telephone [facility] - [facility] Management Clinic [address] [place] [phone] Gil Alba PA [address] [facility], 2[address] [place], [place] [phone] denial Social History Tobacco Use Types Packs/Day Years [...] Description 08/18/2024 12:30 PM EDT Hospital Encounter [facility] - Surgery [address] [place] [address], [place] [phone] Chepe Ingram MD [address] [place] [address] 08/18/2024 12:30 PM EDT - 08/18/2024 1:30 PM EDT Surgery [facility] - Surgery [address] [place] [address] Chepe Ingram MD [address] [place] [address] REPAIR SCAPHOLUNATE [[id number] (CPT )] Scheduled Procedures Name Priority Associated [...] Noted Time PHQ-9 Depression Total Score: 0 07/23/19 11:00 AM EDT A Body Mass Index follow-up plan has been documented for the patient 07/22/2018 12:23 PM EDT documented as of this encounter Care Teams Manager Intensive Care Relationship Specialty Start Date End Date [facility], [facility] [address] [place] PCP - General Family Medicine 10/05/23 documented as of this encounter
--- OUTSIDE RECORDS SUMMARY | 2024-07-22 21:33 | XMS_ITS | Encounter Summary ---
Author Organization [facility] [employer] [facility] tem Address [id number] [address] [place] [address] Care Team Providers Care Stock Clerk Name Role Phone Services, [facility] Primary Care Provider Encounter Details Date Type Department Care Team (Late st Contact Info) Description 06/30/2019 Telephone [facility] Physicians Family Medicine [address] [place] [phone] Amy Cerna LPN Social History Tobacco Use [...] Description 08/18/2024 12:30 PM EDT Hospital Encounter [facility] - Surgery [address] [place] [address] Chepe Ingram MD [address] [facility] [place] [address] 08/18/2024 12:30 PM EDT - 08/18/2024 1:30 PM EDT Surgery [facility] - Surgery [address] [place] [address] Chepe Ingram MD [address] [facility] [address] [place] [address] REPAIR SCAPHOLUNATE [[id number] (CPT )] Scheduled Procedures Name Priority Associated [...] Noted Time PHQ-9 Depression Total Score: 0 04/18/19 20 11:00 AM EST A Body Mass Index follow-up plan has been documented for the patient 07/22/2018 12:23 PM EDT documented as of this encounter Care Teams Stock Clerk Relationship Specialty Start Date End Date [facility], [facility] [address] [facility] [place] [place] PCP - General Family Medicine 10/05/23 documented as of this encounter
--- OUTSIDE RECORDS SUMMARY | 2024-07-22 21:33 | XMS_ITS | Encounter Summary ---
Author Organization [facility] tem Address [id number] [address] [place] [address] Care Team Providers Care J2Ee Android Developer Name Role Phone Services, [facility] Primary Care Provider Encounter Details Date Type Department Care Team (Late st Contact Info) Description 04/08/2022 Telephone [facility] - Pain Management Clinic [address] [place] [phone] Patricia Clay RN Social History Tobacco Use Types Packs/Day Years [...] have Coronavirus / COVID-19? No / Unsure 04/08/2022 1:06 PM EST documented as of this encounter Miscellaneous Notes * Telephone Encounter - Patricia Clay RN - 04/08/2022 11:24 AM EST Call returned to patient regarding her request for prescription for medical bra. Patient had OV 04/02/2022 with Mike Kilgore PA-C. Per Mike Kilgore PA-C patient was to follow up with weight management and request prescription from them. Patient called back on 04/02/2022 after speaking with 2 additional staff members in this office and stated that Kimberlyn will have to write for the bra as weight loss will not. Patient was advised of Kimberlyn's response. Patient then stated then have Mohsen do it and she requested to be put on Mohsen's schedule so that he would write for the prescription. Patient was informedthat this will be discussed with Mohsen. Patient called office today to follow up with request for medical bra prescription. Squad Boss spoke with Mohsen who states he is not familiar with patient's request and agrees with patient consulting withweight management as he will not be writing for bra. Patient is informed that if she needs records from this office to submit to insurance she may contact medical records. PVU documented in this encounter Plan of Treatment Upcoming Encounters Date Type Department Care Team (Latest Contact Info) Description 08/18/2024 12:30 PM EDT Hospital Encounter [address] [phone] Chepe Ingram MD [address] [place] [address] 08/18/2024 12:30 PM EDT - 08/18/2024 1:30 PM EDT Surgery [address] [phone] Chepe Ingram MD [address] [place] [address] REPAIR SCAPHOLUNATE [[id number] (CPT )] Scheduled Procedures Name Priority Associated [...] documented as of this encounter Care Teams J2Ee Android Developer Relationship Specialty Start Date End Date [facility], [facility] [address] [place], [place] PCP - General Family Medicine 10/05/23 documented as of this encounter
--- OUTSIDE RECORDS SUMMARY | 2024-07-22 21:34 | XMS_ITS | Patient Health Record ---
Author Organization [facility] Address [address] [facility] [place] [address] Care Team Providers Care Fur Blowing Machine Attendant Name Role Phone Chinyere Calix Primary Care Provider AnumKatharine parekh Unavailable [phone] Allergies Allergen (clinical drug ingredient) Drug/Non Drug Allergy documented on EMR Reaction Allergy Type Onset Date Status citalopram Celexa Unknown Drug Allergy Active Keflex Unknown Drug Allergy Active Reason For Referral No Information Medications Medication SIG (Take, Route, Frequency, Duration) Notes Start Date End Date Status Vyvanse 70 MG 1 capsule in the morning Orally Once a day for 30 days 06/13/2024 Active Vyvanse 70 MG 1 capsule in the morning Orally Once a day for 30 days DNF until 07/09/2024 06/13/2024 Active Vyvanse 70 MG 1 capsule in the morning Orally Once a day for 30 days DNF until 08/07/2024 06/13/2024 Active Latuda 120 MG TAKE 1 TABLET BY MOUTH ONCE DAILY WITH FOOD Orally Once a day for 30 days dose adjusted 06/01/2023 Active Rosuvastatin Calcium 10 MG TAKE 1 TABLET BY MOUTH EVERY DAY Oral for 30 Active traZODone HCl 50 mg TAKE 1 TO 2 TABLETS BY MOUTH AT BEDTIME for 30 Active FLUoxetine HCl 60 mg TAKE 1 TABLET BY MOUTH DAILY for 30 Active Cyclobenzaprine HCl unknown dosage Active Victoza unknown dosage Activ e Pepcid 40 MG 1 tablet at bedtime Orally Once a day Active Jardiance 25 MG 1 tablet Orally Once a day Active Docusate Sodium 100 MG 3 capsules Orally Once a day Active Linzess 290 MCG 1 capsule at least 30 minutes before the first meal of the day on an empty stomach Orally Once a day Active LamISIL unknown dosage Activ e Gabapentin 300 MG 1 capsule Orally Three times a day Active Actos 30 MG 1 tablet Orally Once a day Active lamoTRIgine 200 MG 1 tablet Orally Once a day for 30 days Active Social History Tobacco Use: Social History Observation Description Date Details (start date - stop date) Never Smoker NA - NA AUDIT-C (Standard) Question Answer Notes Did you have a drink containing alcohol in the p ast year? 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) Active confirmed Problem Mixed bipolar affective disorder, moderate (234282890) Bipolar 1 disorder, mixed, moderate (F31.62) Active confirmed Problem Impulse control disorder (84712958) Impulse control disorder (F63.9) Active confirmed Vital Signs Heart Rate 90 /min 12/28/2023 Temperature 98.6 degrees Fahrenheit 12/28/2023 Oximetry 97 % 12/28/2023 Height 63 in 03/28/2024 Weight 220 lbs 03/28/2024 BMI 38.97 kg/m2 03/28/2024 Encounters Encounter Location Date Provider Diagnosis [facility] [address] [place] [address] 06/13/2024 Chinyere Calix Bipolar 1 disorder, mixed, moderate F31.62 ; ADHD (attention deficit hyperactivity disorder), combined type F90.2 and PTSD (post-traumatic stress disorder) F43.10 [facility] [address] [place] [address] 12/28/2023 Chinyere Calix Bipolar 1 disorder, mixed, moderate F31.62 ; ADHD (attention deficit hyperactivity disorder), combined type F90.2 and PTSD (post-traumatic stress disorder) F43.10 [facility] [address] [place] [address] 03/28/2024 Chinyere Calix Bipolar 1 disorder, mixed, moderate F31.62 ; ADHD (attention deficit hyperactivity disorder), combined type F90.2 and PTSD (post-traumatic stress disorder) F43.10 [address] [place] [address] 06/22/2024 [address] [place] [address] 07/19/2024 Katharine Valdez [address] [place] [address] 11/28/2023 Chinyere Calix ADHD (attention deficit hyperactivity disorder), combined type F90.2 [address] [place] [address] 01/14/2024 [address] [place] [address] 02/10/2024 [address] [place] [address] 03/07/2024 [address] [place] [address] 03/30/2024 [address] [place] [address] 06/13/2024 [address] [place] [address] 09/09/2023 Chinyere Calix Assessments Encounter Date Diagnosis (ICD Code) Assessment Notes Treatment Notes Treatment Clinical Notes Section Notes 11/28/2023 ADHD (attention deficit hyperactivity disorder), combined type (ICD-10 - F90.2) 12/28/2023 ADHD (attention deficit hyperactivity disorder), combined type (ICD-10 - F90.2) OARRS reviewed . Informed consent obtained: YES, we discussed the diagnosis/diagnoses , the treatment options, treatment(s) recommended vs. no treatment. We discussed risks and benefits of treatment options, treatment recommendations vs. no treatment. . . Patient continues to meet criteria for attention deficit hyperactivity disorder. Pt does not meet criteria for bipolar disorder, major depressive disorder, or other persistent mood disorders. Will continue to monitor the patient for presentation of new symptoms or behaviors. . . FDA approved stimulant medication for this age group. Discussed/Denies adverse effects from medication including HTN, tachycardia, insomnia, irritability, headache, or decreased appetite. . . Discussed lifestyle/diet changes to help improve BMI. Recommend increasing activity, reducing portion sizes, limiting carbohydrates, increasing protein as appropriate. Discussed referral to high school home economics teacher if problem persists. . . Continue current treatment plan, tolerating meds well, compliant; call for problems . GOALS: Maintain medication regimen Maintain mood stability Maintain anxiety stability Maintain social and interpersonal functioning Maintain attention and hyperactivity . . Currently at low risk for self harm. Denies ongoing feelings of hopelessness. Denies ongoing suicidal ideation, intent or plan in session. . 12/28/2023 Bipolar 1 disorder, mixed, moderate (ICD-10 - F31.62) cont current treatment limit use of trazodone due to combo of other meds, is used for PRN . . Second generation antipsychotic medications can cause headache, drowsiness, agitation, dizziness, nausea, or extrapyramidal symptoms such as tremors, muscle spasms, slowness of movement or jerking of muscles. . . FDA approved medication for this age group include Selective Serotonin Reuptake Inhibitors (SSRI) and Selective Norepinephrine Reuptake Inhibitors (SNRI). Selective serotonin reuptake inhibitors? can cause nausea, headache, upset stomach, diarrhea, constipation, anxiety, irritability, and sexual dysfunction. Please monitor for worsening of symptoms, especially suicidal ideations or morbid thoughts, and call office and or go to the emergency department immediately . . Currently at low risk for self harm. Denies ongoing feelings of hopelessness. Denies ongoing suicidal ideation, intent or plan in session. . 03/28/2024 Bipolar 1 disorder, mixed, moderate (ICD-10 - F31.62) no changes pt is stable . . Informed consent obtained: YES, we discussed the diagnosis/diagnoses , the treatment options, treatment(s) recommended vs. no treatment. We discussed risks and benefits of treatment options, treatment recommendations vs. no treatment. . . Discussed lifestyle/diet changes to help improve BMI. Recommend increasing activity, reducing portion sizes, limiting carbohydrates, increasing protein as appropriate. Discussed referral to high school home economics teacher if problem persists. . . Continue current treatment plan, tolerating meds well, compliant; call for problems . GOALS: Maintain medication regimen Maintain mood stability Maintain anxiety stability Maintain social and interpersonal functioning Maintain attention and hyperactivity . . Second generation antipsychotic medications can cause headache, drowsiness, agitation, dizziness, nausea, or extrapyramidal symptoms such as tremors, muscle spasms, slowness of movement or jerking of muscles. . . Currently at low risk for self harm. Denies ongoing feelings of hopelessness. Denies ongoing suicidal ideation, intent or plan in session. . 06/13/2024 Bipolar 1 disorder, mixed, moderate (ICD-10 - F31.62) . Informed consent obtained: YES, we discussed the diagnosis/diagnoses , the treatment options, treatment(s) recommended vs. no treatment. We discussed risks and benefits of treatment options, treatment recommendations vs. no treatment. . . Discussed lifestyle/diet changes to help improve BMI. Recommend increasing activity, reducing portion sizes, limiting carbohydrates, increasing protein as appropriate. Discussed referral to high school home economics teacher if problem persists. . . Continue current treatment plan, tolerating meds well, compliant; call for problems . GOALS: Maintain medication regimen Maintain mood stability Maintain anxiety stability Maintain social and interpersonal functioning Maintain attention and hyperactivity . . Pt is to continue current treatment plan Has good tolerability and compliance with medication Call for problems All questions and concerns discussed . . Second generation antipsychotic medications can cause headache, drowsiness, agitation, dizziness, nausea, or extrapyramidal symptoms such as tremors, muscle spasms, slowness of movement or jerking of muscles. . . Currently at low risk for self harm. Denies ongoing feelings of hopelessness. Denies ongoing suicidal ideation, intent or plan in session. . 06/13/2024 ADHD (attention deficit hyperactivity disorder), combined type (ICD-10 - F90.2) . FDA approved stimulant medication for this age group. Discussed/Denies adverse effects from medication including HTN, tachycardia, insomnia, irritability, headache, or decreased appetite. . 03/28/2024 ADHD (attention deficit hyperactivity disorder), combined type (ICD-10 - F90.2) . OARRS reviewed cont vyvanse . FDA approved stimulant medication for this age group. Discussed/Denies adverse effects from medication including HTN, tachycardia, insomnia, irritability, headache, or decreased appetite. . 12/28/2023 PTSD (post-traumatic stress disorder) (ICD-10 - F43.10) 03/28/2024 PTSD (post-traumatic stress disorder) (ICD-10 - F43.10) 06/13/2024 PTSD (post-traumatic stress disorder) (ICD-10 - F43.10) 12/28/2023 Other Body Mass Index : Care Instructions material was published Plan Of Treatment Next Appt Details Provider Name:Chinyere Calix, 09/19/2024 10:15:00 AM, [address] [place], [address], Insurance Providers Payer Name Payer Address Payer Phone Subscriber Number Group Number Insured Name Patient Relationship to Insured Coverage Start Date Coverage End Date [employer] [place] [employer] [address] [place] [address] [id number] [employer], PEE Self - patient is the insured 3 [facility] [address] [place] [address] [id number] [employer], PEE Self - patient is the insured 3 [facility] ed 22. [address] [place] [address] [id number] [employer], PEE Self - patient is the insured 0 [facility] [address] [place] [address] [id number] [employer], PEE Self - patient is the insured 1 3 [employer] MEDICAID [place] [facility] [address] [place] [address] [id number] [employer], PEE Self - patient is the insured 1 3 Medical (General) History Medical History History ICD Code bipolar PTSD ADHD Surgical History Surgery Date(Month/Year) nasal surgery leg surgery back surgery ankle surgery Hospitalization History Reason Date(Month/Year) Rotator cuff surgery 05/15/22
--- OUTSIDE RECORDS SUMMARY | 2024-07-22 21:34 | XMS_ITS | Referral Summary ---
Author Organization [facility] Address [address] [place] [address] Care Team Providers Care Lockstitch Sleeve Maker Name Role Phone FredisJennyLoreto Primary Care Provider Encounters Date Type Department Care Team Description 07/08/2024 Abstract [facility] [address] [place] [address] Erendira Tom PA-C 06/20/2024 8:25 AM EDT - 06/20/2024 11:59 PM EDT Hospital Encounter [facility] Heart Station [address] [place] [address] Other chest pain Discharge Disposition: Home or Self Care () 06/20/2024 8:00 AM EDT Office Visit [facility] [address] [place] [address] Erendira Tom PA-C Primary hypertension (Primary Dx); Other chest pain from Last 3 Months Allergies Active Allergy Reactions Criticality Noted Date Comments Biguanides Other,Unknown High 04/15/2022 Severe hypoglycemia Other Reaction(s): Other (See Comments), Unknown Reaction Hypoglycemia Hypoglycemia Cephalexin Hives,Other,Unknown High 07/14/2013 Shortness of breath, throat felt tight Other Reaction(s): Other: See Comments, Unknown Shortness of breath, throat felt tight Other Reaction(s): Swelling of Lip/Tongue/Throat, hives Citalopram Hives,Unknown 07/14/2013 Other Reaction(s): Other: See Comments, Unknown palpitations Other Reaction(s): Palpitations, anaphylaxis Medications Medication Sig Dispensed Refills Start Date End Date Status Mounjaro 2.5 mg/0.5 mL pen injector INJECT 2.5 MG SUBCUTANEOUSLY (UNDER THE SKIN) EVERY 7 DAYS 06/01/2024 Active ascorbic acid (Vitamin C) 500 mg tablet Take 500 mg by mouth twice a day. 02/24/2023 Active Align, B.infantis, 4 mg capsule Take 1 capsule by mouth in the morning. 02/16/2023 Active cholecalciferol, vitamin D3, 50 mcg (2,000 unit) capsule Take 2,000 Units by mouth in the morning. 04/09/2021 Active ciclopirox (Loprox) 0.77 % cream APPLY TO THE AFFECTED AREA(S) TWICE DAILY 04/21/2024 Active cyclobenzaprine (Flexeril) 10 mg tablet Take 10 mg by mouth if needed in the morning, at noon, and at bedtime. 11/16/2023 Active diclofenac (Voltaren) 75 mg EC tablet Take 75 mg by mouth if needed in the morning and at bedtime. 11/16/2023 Active docusate sodium (Colace) 100 mg capsule Take 300 mg by mouth 3 times a day. Active DULoxetine (Cymbalta) [address] capsule Take 1 capsule by mouth in the morning. Active empagliflozin (Jardiance) 25 mg Take 25 mg by mouth in the morning. 04/07/2024 Active etonogestrel-elutin g contraceptive (Nexplanon) 68 mg contraceptive implant Inject 68 mg under the skin. Active FeroSuL 325 mg (65 mg iron) tablet Take 1 tablet by mouth in the morning. Active FLUoxetine (PROzac) 60 mg tablet Take 60 mg by mouth in the morning. Active fluticasone (Flonase) 50 mcg/actuation nasal spray Administer 1 spray into each nostril if needed. 07/16/2020 Active gabapentin (Neurontin) 300 mg capsule 1 capsule every 8 (eight) hours. 03/31/2024 Active lamoTRIgine (LaMICtal) 200 mg tablet Take 200 mg by mouth 1 (one) time each day at the same time. Active Linzess 290 mcg capsule 1 (one) time each day at the same time. Active lisdexamfetamine (Vyvanse) 70 mg capsule Take 1 capsule by mouth in the morning. Active Latuda 120 mg tablet Take 120 mg by mouth 1 (one) time each day at the same time. Active multivitamin (Theragran-M) 9 mg iron-400 mcg tablet Take 1 tablet by mouth in the morning. Active pantoprazole (ProtoNix) 20 mg EC tablet Take 20 mg by mouth in the morning and at bedtime. Active pioglitazone (Actos) 30 mg tablet 30 mg 1 (one) time each day at the same time. Active rosuvastatin (Crestor) 10 mg tablet Take 10 mg by mouth. Acti ve traMADol (Ultram) 50 mg tablet Take 50 mg by mouth if needed each day. 01/21/2023 Active VITAMIN B COMPLEX ORAL Take 1 tablet by mouth in the morning. 01/16/2020 Active metoprolol succinate XL (Toprol-XL) 25 mg 24 hr tabletIndications:P rimary hypertension Take 1 tablet (25 mg) by mouth in the morning. 30 tablet 2 06/20/2024 Active Social History Tobacco Use Types Packs/Day Years Used Date Smoking Tobacco: Never Passive Smoke Exposure: Never Smokeless Tobacco: Never Tobacco Cessation:Counseling Given: No Alcohol Use Standard Drinks/Week Comments Not Currently 0 (1 standard drink = 0.6 oz pur e alcohol) Humiliation, Afraid, Rape, and Kick questionnair e Answer Date Recorded Within the last year, have y ou been afraid of your partner or ex-partner? No 06/20/2024 Within the last year, have y ou been humiliated or emotionally abused in other ways by your partner or ex-partner? No Within the last year, have y ou been kicked, hit, slapped, or otherwise physically hurt by your partner or ex-partner? No 06/20/2024 Within the last year, have y ou been raped or forced to have any kind of sexual activity by your partner or ex-partner? No 06/20/2024 PHQ-2 Answer Date Recorded Patient Health Questionnaire-2 Score 2 06/20/2024 Sex and Gender Information Value Date Recorded Sex Assigned at Not on file Gender Identity Not on file Sexual Orientation Not on file Last Filed Vital Signs Vital Sign Reading Time Taken Comments Blood Pressure 115/71 06/20/2024 8:25 AM EDT Pulse 94 06/20/2024 8:25 AM EDT Temperature - - Respiratory Rate - - Oxygen Saturation - - Inhaled Oxygen Concentration - - Weight 104 kg (230 lb) 06/20/2024 8:14 AM EDT Height 160 cm (5' 3 ) 06/20/2024 8:14 AM EDT Body Mass Index 40.74 06/20/2024 8:14 AM EDT Plan of Treatment Upcoming Encounters Date Type Department Care Team (Late st Contact Info) Description 08/03/2024 11:00 AM EDT Appointment [facility] [employer] [facility] Station [address] [place] [address] 08/03/2024 11:30 AM EDT Appointment [facility] Station [address] [place] [address] Procedures Procedure Name Priority Date/Time Associated Diagnosis Comments ECG 12-LEAD Routine 06/20/2024 8:49 AM EDT Other chest pain from Last 3 Months Results * ECG 12 lead (06/20/2024 8:49 AM EDT) Ventricular Rate 88 BPM GE MUSE Atrial Rate 88 BPM GE MUSE KS Interval 132 ms GE MUSE QRS DURATION 82 ms GE MUSE QT Interval 386 ms GE MUSE QTC CALCULATION(BAZE TT) 467 ms GE MUSE P [place] 53 degrees GE MUSE R-[place] 26 degrees GE MUSE T Wave [place] 50 degrees GE MUSE 06/20/2024 8:37 AM EDT 06/20/2024 10:38 AM EDT Impressions GE MUSE - 06/20/2024 10:38 AM EDT Normal sinus rhythm Normal ECG No previous ECGs available Confirmed by Tomás EASTMAN, TON Farley ([id number]) on 06/20/2024 10:38:53 AM Narrative Procedure Note Ton Eastman MD - 06/20/2024 IMPRESSION: Normal sinus rhythm Normal ECG No previous ECGs available Confirmed by Tomás EASTMAN, TON Farley ([id number]) on 06/20/2024 10:38:53 AM Erendira Tom PA-C ECG ORDERABLES GE MUSE from Last 3 Months Care Teams Lockstitch Sleeve Maker Relationship Specialty Start Date End Date Loreto Mcneal Param KLINE PCP - General 03/30/24
--- OUTSIDE RECORDS SUMMARY | 2024-07-22 21:34 | XMS_ITS | Encounter Summary ---
Author Organization [facility] Address [address] [facility] [place] [address] Care Team Providers Care Material Attendant Name Role Phone Loreto Mcneal Primary Care Provider + [phone] Encounter Details Date Type Department Care Team (Late st Contact Info) Description 07/08/2024 Abstract [facility] [address] [place] [address] Erendira Tom PA-C [address] [facility] [address] [place] [address] Social History Tobacco Use Types Packs/Day Years Used Date Smoking Tobacco: Never Passive Smoke Exposure: Never Smokeless Tobacco: Never Alcohol Use Standard Drinks/Week Comments Not Currently [...] Info) Description 08/03/2024 11:00 AM EDT Appointment [facility] [address] [place] [address] 08/03/2024 11:30 AM EDT Appointment [facility] [address] [place] [address] documented as of this encounter Visit Diagnoses Not on filedocumented in this encounter Care Teams Material Attendant Relationship Specialty Start Date End Date Loreto Mcneal [address] PCP - General 03/30/24 documented as of this encounter
--- OUTSIDE RECORDS SUMMARY | 2024-07-22 21:34 | XMS_ITS | Encounter Summary ---
Author Organization [facility] Address [address] [place] [address] Care Team Providers Care Clinical Manager Home Care Name Role Phone Key Andrea SIGNAL APPRENTICE Unavailable Shawna Dudley DO Primary Care Provider [phone] Sasha Santos DO Unavailable [phone] Reason for Visit * Reason Comments Med Refill Encounter Details Date Type Department Care Team (Late st Contact Info) Description 05/19/2024 Refill [facility] [address] [facility] [address] [place] [address] Archana Naylor APRN-HILARY [address] [facility] [address] [place] [address] Rash and other nonspecific skin eruption Social History Tobacco Use Types Packs/Day Years [...] on file documented as of this encounter Miscellaneous Notes * Telephone Encounter - Megha Mora MA - 05/19/2024 10:03 AM EDT Needs follow up. Has been >1 year since last visit documented in this encounter Plan of Treatment Upcoming Encounters Date Type Department Care Team (Late st Contact Info) Description 08/04/2024 10:30 AM EDT Office Visit [facility] [address] [place] [address] Cleo Zambrano MD [address] [place] [address] 08/18/2024 9:45 AM EDT Office Visit [facility] [place] [address] [place] [place] [address] Mendez Ortiz DO [address] [place], [place] [id number] 09/26/2024 2:20 PM EDT Office Visit [facility] MENARD [address] [phone] Brittany Neville NP [address] [place], [place] 05/31/2025 1:00 PM EDT Office Visit [facility] [address] [facility] [place] [address] Roel Garber DO [address] [facility] [address] [place], [place] [id number] documented as of this encounter Visit Diagnoses Diagnosis Rash and other nonspecific skin eruption documented in this encounter Care Teams Clinical Manager Home Care Relationship Specialty Start Date End Date Shawna Dudley DO [address] [place] [address] PCP - General Family Medicine 04/14/22 Key Andrea, SIGNAL APPRENTICE [address] [place] [address] Referring Physician Family Medicine 08/13/23 Sasha Santos DO [address] [place] [address] Referring Physician Neurology 05/10/24 documented as of this encounter
--- OUTSIDE RECORDS SUMMARY | 2024-07-22 21:34 | XMS_ITS | Encounter Summary ---
Author Organization [email or web address] [facility] tem Address [id number] [address] [place] [address] Care Team Providers Care Arboriculture Instructor Name Role Phone Services, [facility] Primary Care Provider Reason for Referral * Consultation (Routine) - Closed Specialty Diagnoses / Procedures Referred By Karla cuadra Referred To Contact Endocrinology, Diabetes & Metabolism Diagnoses 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, without long-term current use of insulin ([facility]) Zelalem Pathak MD Phone: tel: fax: Cleo Zambrano MD [address] [facility], [address] [address] Phone: tel: fax: Referral ID Status Reason Start Date Expiration Date V isits Requested Visits Authorized [id number] Closed Specialty Services Required 06/14/2020 06/14/2021 1 1 Encounter Details Date Type Department Care Team (Late st Contact Info) Description 06/14/2020 Orders Only [facility] [address] [place] [phone] Zelalem Pathak MD [address]. Provider retired 05/31/24 [place], [place] [id number] 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, without long-term current use of insulin ([facility]) (Primary Dx) Social History Tobacco Use Types Packs/Day Years [...] have Coronavirus / COVID-19? No / Unsure 06/08/2020 8:07 AM EDT documented as of this encounter Plan of Treatment Upcoming Encounters Date Type Department Care Team (Latest Contact Info) Description 08/18/2024 12:30 PM EDT Hospital Encounter [address] [address] Chepe Ingram MD [address] [place] [address] 08/18/2024 12:30 PM EDT - 08/18/2024 1:30 PM EDT Surgery [address] [address] Chepe Ingram MD [address] [place] [address] 798 REPAIR SCAPHOLUNATE [84016 (CPT )] Scheduled Procedures Name Priority Associated [...] for closed fracture 08/18/2024 12:30 PM EDT Scheduled Referrals Name Type Priority Associated Diagnoses Order Schedule Ambulatory referral to Endocrinology Outpatient Referral Routine 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, without long-term current use of insulin ([facility]) 1 Occurrences starting 06/14/2020 until 12/14/2020 documented as of this encounter Visit Diagnoses Diagnosis 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, without long-term current use of insulin ([facility])- Primary documented in this encounter Additional Health Concerns Assessment Noted Time PHQ-9 Depression Total Score: 0 05/03/19 21 3:00 PM EST A Body Mass Index follow-up plan has been documented for the patient 02/10/2020 2:00 PM EST documented as of this encounter Care Teams Arboriculture Instructor Relationship Specialty Start Date End Date Services, [facility] [address] [place], [place] PCP - General Family Medicine 10/05/23 documented as of this encounter
--- OUTSIDE RECORDS SUMMARY | 2024-07-22 21:34 | XMS_ITS | Clinical Summary ---
Author Organization [facility] Address [address] [place] [address] Care Team Providers Care Braider Operator Name Role Phone Fredis Loreto Primary Care Provider Allergies Active Allergy Reactions Criticality Noted Date [...] the morning. 30 tablet 2 06/20/2024 Active Encounters Date Type Department Care Team Description 07/08/2024 Abstract [facility] [address] [place] [address] Erendira Tom PA-C 06/20/2024 8:25 AM EDT - 06/20/2024 11:59 PM EDT Hospital Encounter [facility] Heart Station [address] [facility] [place] [address] Other chest pain Discharge Disposition: Home or Self Care () 06/20/2024 8:00 AM EDT Office Visit [facility] [address] [place] [address] Erendira Tom PA-C Primary hypertension (Primary Dx); Other chest pain from Last 3 Months Social History Tobacco Use Types Packs/Day Years [...] Info) Description 08/03/2024 11:00 AM EDT Appointment [facility] Heart and Vascular Center Heart Station [address] [place] [address] 08/03/2024 11:30 AM EDT Appointment [facility] [address] [place] [address] Health Maintenance Due Date Last Done Comments Diabetes: Hemoglobin A1C 1980 Diabetes: Retinopathy Screening 1990 Diabetes: Urine Protein Screening 09/25/1999 HPV/Cotest 2010 Varicella Vaccines (1 of 2 - 13+ 2-dose series) 01/16/2014 Mammogram 2020 COVID-19 Vaccine ( season) 2024 12/07/2023, 12/22/2022, 02/07/2022, Additional history exists Depression Screening 06/20/2025 06/20/2024 Cervical Cancer Screening 05/24/2026 Pap Smear 05/24/2026 05/25/2023 Zoster Vaccines (1 of 2) 2030 Adult Tetanus 09/03/2031 09/02/2021 Pneumococcal Vaccine: Pediatrics (0 to 5 Years) and At-Risk Patients (6 to 64 Years) Completed 02/07/2022, 12/02/2017 Hepatitis B Vaccines Completed 05/25/2023, 12/22/2022, 06/23/2022 Influenza Vaccine Completed 12/07/2023, , 12/23/2021, Additional history exists HIB Vaccines Aged Out No longer eligi ble based on patient's age to complete this topic HPV Vaccines Aged Out No longer eligi ble based on patient's age to complete this topic IPV Vaccines Aged Out No longer eligi ble based on patient's age to complete this topic Meningococcal B Vaccine Aged Out No l onger eligible based on patient's age to complete this topic Meningococcal Vaccine Aged Out No terrence margo eligible based on patient's age to complete this topic Rotavirus Vaccines Aged Out No longer eligible based on patient's age to complete this topic Procedures Procedure Name Priority Date/Time Associated Diagnosis Comments ECG 12-LEAD Routine 06/20/2024 8:49 AM EDT Other chest pain from Last 3 Months Results * ECG 12 lead (06/20/2024 8:49 AM EDT) Ventricular Rate 88 BPM GE MUSE Atrial Rate 88 BPM GE MUSE RI Interval 132 ms GE MUSE QRS DURATION 82 ms GE MUSE QT Interval 386 ms GE MUSE QTC CALCULATION(BAZE TT) 467 ms GE MUSE P [place] 53 degrees GE MUSE R-[place] 26 degrees GE MUSE T Wave [place] 50 degrees GE MUSE 06/20/2024 8:37 AM EDT 06/20/2024 10:38 AM EDT Impressions GE MUSE - 06/20/2024 10:38 AM EDT Normal sinus rhythm Normal ECG No previous ECGs available Confirmed by Tomás EASTMAN SAMER J. ([id number]) on 06/20/2024 10:38:53 AM Narrative Procedure Note Ton Eastman MD - 06/20/2024 IMPRESSION: Normal sinus rhythm Normal ECG No previous ECGs available Confirmed by Tomás EASTMAN SAMER J. ([id number]) on 06/20/2024 10:38:53 AM Erendira Tom PA-C ECG ORDERABLES GE MUSE from Last 3 Months Care Teams Braider Operator Relationship Specialty Start Date End Date [facility] - General 03/30/24
--- OUTSIDE RECORDS SUMMARY | 2024-07-22 21:34 | XMS_ITS | Encounter Summary ---
Author Organization [facility] [employer] tem Address [facility]-[id number] [address] [place] [address] Care Team Providers Care Pit Recorder Name Role Phone Services, [facility] Primary Care Provider Encounter Details Date Type Department Care Team (Late st Contact Info) Description 06/13/2024 Telephone [facility] Plastic and Reconstructive Surgery [address] [facility] [address] [place] [address] Dwayne Khoury MD [address], [facility] [address] [place] [address] Social History Tobacco Use Types Packs/Day Years [...] got money to buy more. Never True 10/05/2023 Within the past 12 months th e food we bought just didn't last and we didn't have money to get more. 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 She did also mention that she currently has a rash under her breast. documented in this encounter Plan of Treatment Upcoming Encounters Date Type Department Care Team (Latest Contact Info) Description 08/18/2024 12:30 PM EDT Hospital Encounter [address] [address] Chepe Ingram MD [address] [place] [address] 08/18/2024 12:30 PM EDT - 08/18/2024 1:30 PM EDT Surgery [address] [address] Chepe Ingram MD [address] [place] [address] REPAIR SCAPHOLUNATE [58174 (CPT )] Scheduled Procedures Name Priority Associated Diagnoses Date/Ti ar REPAIR LIGAMENT SCAPHOLUNATE Pre-procedural laboratory examination, Extensor [...] documented as of this encounter Care Teams Pit Recorder Relationship Specialty Start Date End Date Services, [facility] [address] [place] [address] [place], [place] PCP - General Family Medicine 10/05/23 documented as of this encounter
--- OUTSIDE RECORDS SUMMARY | 2024-07-22 21:34 | XMS_ITS | Encounter Summary ---
Author Organization [facility] tem Address [id number] [address] [place] [address] Care Team Providers Care Residential Solar Consultant Name Role Phone Services, [facility] Primary Care Provider Reason for Visit * Reason Comments Med Refill Encounter Details Date Type Department Care Team (Late st Contact Info) Description 12/04/2021 Refill [facility] [address] [place] [phone] Gil Alba, PA [address] [facility] 2nd [address] [place], [place] [phone] Social History Tobacco Use Types Packs/Day Years [...] have Coronavirus / COVID-19? No / Unsure 11/07/2021 2:23 PM EDT documented as of this encounter Miscellaneous Notes * Telephone Encounter - Argenis Storm RN - 12/04/2021 4:01 PM EDT Our clinic does not accept pharmacy refill requests. The patient must contact our office. [phone] documented in this encounter Plan of Treatment Upcoming Encounters Date Type Department Care Team (Latest Contact Info) Description 08/18/2024 12:30 PM EDT Hospital Encounter [address] [address] Chepe Ingram MD [address] [place] [address] 08/18/2024 12:30 PM EDT - 08/18/2024 1:30 PM EDT Surgery [address] [address] Chepe Ingram MD [address] [place] [address] REPAIR SCAPHOLUNATE [[id number] (CPT )] Scheduled Procedures Name Priority Associated [...] documented as of this encounter Care Teams Residential Solar Consultant Relationship Specialty Start Date End Date Services, [facility] [address] [place], [place] PCP - General Family Medicine 10/05/23 documented as of this encounter
--- OUTSIDE RECORDS SUMMARY | 2024-07-22 21:34 | XMS_ITS | Clinical Summary ---
Author Organization [facility] tem Address [id number] [address] [place] [address] Care Team Providers Care Scientist Immunology Name Role Phone Services, [facility] Primary Care Provider Allergies Active Allergy Reactions Criticality Noted Date Comments Citalopram 09/15/2016 Cephalexin 09/15/2016 Metformin High 04/15/2022 Severe hypoglycemia Poison Devorah Extract 04/15/2022 Medications lhiyapzz-ahyp-KY- calcium &mins (THERAGRAN-M) 9 mg iron-400 mcg tablet Take 1 tablet by mouth in the morning. Active blood-glucose meter (TRUE METRIX GLUCOSE METER) [facility] use to test BLOOD SUGAR TWICE DAILY 1 each 9 Active gabapentin (NEURONTIN) 100 mg capsule Take 1 capsule (100 mg total) by mouth in the morning and 1 capsule (100 mg total) before bedtime. Active SUMAtriptan (IMITREX) 100 mg tablet TAKE 1 TABLET BY MOUTH at onset of FOR MIGRAINE. May repeat once after 2 hours if needed (max 2 TABLETS per day, 2 TABLETS per week) 2 9 Active rizatriptan (MAXALT) 10 mg tablet TAKE 1 TABLET BY MOUTH at onset of migraine, may repeat after 2 hours if needed (max 2 tablets per day, 2 days per week) 2 9 Active lamoTRIgine (LaMICtal) 200 mg tablet Take 1 tablet (200 mg total) by mouth in the morning. 9 Active FLUoxetine (PROzac) 40 mg capsule Take 1 capsule (40 mg total) by mouth in the morning. 0 Active B COMPLEX-VITAMIN B12 tablet TAKE 1 TABLET BY MOUTH DAILY 30 tablet 5 0 Active Additional Information Patient not taking.Informant: Self, Reported on 04/28/2023 cetirizine (ZyrTEC) 10 mg tablet TAKE 1 TABLET BY MOUTH DAILY 30 tablet 5 0 Active Additional Information Patient not taking.Informant: Self, Reported on 04/28/2023 lancets (UNILET LANCET) 28 gauge [facility] Use to test BLOOD SUGAR TWICE DAILY, Diagnosis: E11.9 100 each 5 1 Active famotidine (PEPCID) 20 mg tablet TAKE 1 TABLET BY MOUTH TWICE DAILY 60 tablet 5 1 Active ferrous sulfate 325 (65 FE) mg tablet TAKE 1 TABLET BY MOUTH DAILY 30 tablet 5 1 Active Additional Information Patient not taking.Informant: Self, Reported on 04/28/2023 traZODone (DESYREL) 50 mg tablet as needed. 1 Active LATUDA 80 mg tablet Take 1 tablet (80 mg total) by mouth daily with breakfast. 1 Active pioglitazone (ACTOS) 30 mg tablet Take 1 tablet (30 mg total) by mouth daily. 30 tablet 5 1 Active blood sugar diagnostic (TRUE METRIX GLUCOSE TEST STRIP) stripIndications: 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s ([facility]) Use to test BLOOD SUGAR TWICE DAILY 100 strip 5 1 Active fluticasone propionate (FLONASE) 50 mcg/actuation nasal spray instill 2 (TWO) sprays in EACH nostril ONCE DAILY 16 g 1 Active albuterol (PROVENTIL HFA;VENTOLIN HFA) 90 mcg/actuation inhalerIndication s:Obstructive sleep apnea syndrome INHALE 2 PUFFS BY MOUTH EVERY 6 HOURS NEEDED FOR WHEEZING 18 g 1 Active montelukast (SINGULAIR) 10 mg tablet TAKE 1 TABLET BY MOUTH NIGHTLY 30 tablet 1 Active Additional Information Patient not taking.Informant: Self, Reported on 04/28/2023 empagliflozin (JARDIANCE) 25 mg tablet tablet Take 1 tablet (25 mg total) by mouth in the morning. Active rosuvastatin (CRESTOR) 20 mg tablet Take 1 tablet (20 mg total) by mouth in the morning. Active etonogestreL (NEXPLANON) 68 mg implant 1 each (68 mg total) by subdermal route once. Active cholecalciferol, vitamin D3, 2,000 units capsule Take 1 capsule (2,000 Units total) by mouth in the morning. 2 Active tiZANidine (ZANAFLEX) 4 mg tablet 2 Active lisdexamfetamine (VYVANSE) 70 mg capsule 1 capsule in the morning 2 Active semaglutide 1 mg/dose (2 mg/1.5 mL) pen injector 2 mg once a week. 2 Active ibuprofen (MOTRIN) 800 mg tablet Take 1 tablet (800 mg total) by mouth every 6 (six) hours as needed for pain. Active NON FORMULARY Hair, Skin & Nails - 2 gummies in the morning Active NON FORMULARY Neosporin cream- applies to bilateral nostrils 3 times a day Active fexofenadine (JONATHAN) 60 mg tablet Take 1 tablet (60 mg total) by mouth in the morning. Active TRULICITY 3 mg/0.5 mL pen injector Injects on Sundays 3 Active naproxen (NAPROSYN) 500 mg tablet Take 1 tablet (500 mg total) by mouth in the morning and 1 tablet (500 mg total) in the evening. Take with meals. 60 tablet 2 3 Active Additional Information Patient not taking.Informant: Self, Reported on 04/28/2023 docusate sodium (COLACE) 100 mg capsule 3 Active traMADoL (ULTRAM) 50 mg tablet Take 1 tablet (50 mg total) by mouth daily as needed for pain. Active ascorbic acid (VITAMIN C) 500 mg tablet Take 1 tablet (500 mg total) by mouth in the morning and 1 tablet (500 mg total) before bedtime. 3 Active ALIGN 4 mg capsule Take 1 capsule (4 mg total) by mouth in the morning. Active TRULANCE 3 mg tablet Take 1 tablet by mouth in the morning. 3 Active DULoxetine (CYMBALTA) 30 mg capsule Take 1 capsule (30 mg total) by mouth in the morning. 30 capsule 3 4 Active Active Problems Problem Noted Date Diagnosed Date Macromastia 10/08/2023 Mass of upper outer quadrant of right breast 04/2023 Symptomatic mammary hypertrophy 06/02/2023 Disorder of sacrum 01/29/2023 Intervertebral disc 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 12/02/2022 Axillary lymphadenopathy 05/10/2020 Disc displacement, lumbar 10/11/2018 Overview (10/11/2018): Added automatically from request for surgery [id number] Lumbosacral spondylosis without myelopathy 07/22 Overview (07/22/2018): Added automatically from request for surgery [id number] PTSD (post-traumatic stress disorder) 06/16/2018 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 Cervical disc displacement 09/21/2017 Postoperative abscess 09/28/2016 Acute cholecystitis 09/15/2016 Diverticulitis Encounters Date Type Department Care Team Description 06/13/2024 Telephone [facility] [address] [place] [address] Dwayne Khoury MD from Last 3 Months Immunizations Immunization Administration Dates Next Due Influenza Whole 12/03/2012, 2,12/23/2010,2008 Influenza, Injectable, quadr ivalent (PF) 12/19/2018,12/02/2017 Influenza, Live, Intranasal 12/19/2013 Influenza, Unspecified 10/10/2016 Pneumococcal Conjugate 13-Valent 12/02/2017 Family History Medical History Relation Name Comments Bleeding Disorder Father Diabetes Father Thyroid Issues Father Stroke Maternal Grandfather Breast cancer Maternal Grandmother Diabetes Mother Thyroid Issues Mother Stroke Paternal Grandmother Anesthesia problems Neg Hx Relation Name Status Comments Father Maternal Grandfather Maternal Grandmother Mother Alive Paternal Grandmother Social History Tobacco Use Types Packs/Day Years Used Date Smoking Tobacco: Never Smokeless Tobacco: Never Tobacco Cessation:Counseling Given: Not Answered Alcohol Use Standard Drinks/Week Comments No 0 [...] 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 Not on file Last Filed Vital Signs Vital Sign Reading Time Taken Comments Blood Pressure 145/86 10/08/2023 9:17 AM EDT Pulse 102 10/08/2023 9:17 AM EDT Temperature 37.1 C (98.8 F) 10/05/2023 5:54 PM EDT Respiratory Rate 16 10/08/2023 9:17 AM EDT Oxygen Saturation 100% 10/05/2023 5:54 PM EDT Inhaled Oxygen Concentration - - Weight 93.1 kg (205 lb 4 oz) 10/08/2023 9:17 AM EDT Height 160 cm (5' 3 ) 10/08/2023 9:17 AM EDT Body Mass Index 36.36 10/08/2023 9:17 AM EDT Plan of Treatment Upcoming Encounters Date Type Department Care Team (Latest Contact Info) Description 08/18/2024 12:30 PM EDT Hospital Encounter [facility] Surgery [address] [place] [address] Chepe Ingram MD [address] [place] [address] 08/18/2024 12:30 PM EDT - 08/18/2024 1:30 PM EDT Surgery [facility] Surgery [address] [place] [address] Chepe Ingram MD [address] [place] [address] REPAIR SCAPHOLUNATE [83033 (CPT )] Scheduled Procedures Name Priority Associated [...] for closed fracture 08/18/2024 12:30 PM EDT Health Maintenance Due Date Last Done Comments Diabetic Ophthalmology Exam 1980 Depression Screening 1992 Adult BMI Follow Up Plan 1998 Diabetic Foot Exam 01/04/2020 01/03/2019 DTaP,Tdap and Td Vaccines (1 - Tdap) 09/03/2021 09/02/2021 Adult BMI Screening 10/07/2024 10/08/2023 Tobacco Screening 10/07/2024 10/08/2023 Influenza Vaccine 10/31/2024 12/07/2023, , 12/23/2021, Additional history exists Pap Smear 05/24/2026 05/25/2023, 05/19/2022 COVID-19 Vaccine Completed 12/07/2023, , 02/07/2022, Additional history exists Goals Goal Patient Goal Type Associated Problems Recent Progress Patient-Stated? Author Autogenerat ed Goal Care Plan Autogenerated Problem No Lili Santam[employer] Implanted Type Area Sap Portal Architect Device Identifier Shelf Expiration Date Model / Serial / Lot [place] [employer] Sut 5.5mm 2 Ft Crkscr Fbrwr Shldr 3 Pk 14.7mm Strl Ea=Bill-Only Rpl [id number] - [id number] Implanted:Qty: 1 on 05/15/2022 by Chepe Ingram MD at [facility] [employer] Right: Shoulder Ar[employer]rex 05/30/2026 [id number] / / [id number] Procedures Procedure Name Priority Date/Time Associated Diagnosis Comments AMB REFERRAL TO PODIATRY Routine 01/03/2019 Pain in both feet from Last 3 Months or Most Recently Relevant to Health Maintenance Results * Ambulatory referral to Podiatry (01/03/2019) 01/03/2019 us Zelalem Pathak MD OUTPATIENT REFERRAL ORDERABL ES Final Result MANUALLY TRANSCRIBED RESULTS from Last 3 Months or Most Recently Relevant to Health Maintenance Additional Health Concerns Active Problems Noted Date Diagnosed Date Autogenerated Problem 07/21/2024 Insurance [place] [employer] Advance Directives * Full Code (Latest Code Status on File) Date Activated Date Inactivated Comments 09/16/2016 3:19 PM 09/17/2016 8:38 PM Care Teams Scientist Immunology Relationship Specialty Start Date End Date [facility], [facility] [address] [place], [place] PCP - General Family Medicine 10/05/23
--- OUTSIDE RECORDS SUMMARY | 2024-07-22 21:34 | XMS_ITS | Encounter Summary ---
Author Organization [facility] tem Address [id number] [address] 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 She cannot deal with Mohsen and Kimberlyn not managing her pain any more. I cancelled patients appointment. documented in this encounter Plan of Treatment Upcoming Encounters Date Type Department Care Team (Latest Contact Info) Description 08/18/2024 12:30 PM EDT Hospital Encounter [address] [address] Chepe Ingram MD [address] [place] [address] 08/18/2024 12:30 PM EDT - 08/18/2024 1:30 PM EDT Surgery [address] [address] Chepe Ingram MD [address] [place] [address] REPAIR SCAPHOLUNATE [[id number] (CPT )] Scheduled Procedures Name Priority Associated Diagnoses Date/Ti ms REPAIR LIGAMENT SCAPHOLUNATE Pre-procedural laboratory examination, Extensor [...] documented as of this encounter Care Teams Vacuum Drum Drier Operator Relationship Specialty Start Date End Date Services, [facility] [address] [place], [place] PCP - General Family Medicine 10/05/23 documented as of this encounter
--- OUTSIDE RECORDS SUMMARY | 2024-07-22 21:34 | XMS_ITS | Encounter Summary ---
Author Organization [facility] Address [address] [place] [address] Care Team Providers Care Manager Scheduling Name Role Phone Loreto Mcneal APRN - JO ANN Primary Care Prov ider Encounter Details Date Type Department Care Team (Late Contact Info) Description 01/12/2024 Orders Only [facility] UR[facility]Y [address] [place] [address] Provider, MD Ana Social History Tobacco Use Types Packs/Day Years [...] Department Care Team (Late Contact Info) Description 11/10/2024 11:30 AM EDT Office Visit [facility] [address] [place] [address] Karen Cotter APRN - SPRING ENCASER [address] [facility] [address] [place] [address] 1 year KUB documented as of this encounter Procedures Procedure Name Priority Date/Time Associated Diagnosis Comments CT ABDOMEN PELVIS WO CONTRAST Routine 01/08/2024 10:[address] ABDOMEN PELVIS W CONTRAST Routine 10/24/2023 10:11 AM EDT documented in this encounter Results * CT ABDOMEN PELVIS WO CONTRAST (01/08/2024 10:08 AM EST) Anatomical Region Laterality Modality Abdomen, Pelvis, Hip Computed To mography us Historical Provider MD DOSS CT ORDERABLES Final R esult * CT abdomen pelvis w contrast (10/24/2023 10:11 AM EDT) Anatomical Region Laterality Modality Computed Tomogra phy us Historical Provider MD DOSS CT ORDERABLES Final R esult documented in this encounter Visit Diagnoses Not on filedocumented in this encounter Care Teams Manager Scheduling Relationship Specialty Start Date End Date Loreto Mcneal APRN - COMMERCIAL INSTRUCTOR SUPERVISOR [address] [place] [address] PCP - General 11/11/23 documented as of this encounter
--- OUTSIDE RECORDS SUMMARY | 2024-07-22 21:34 | XMS_ITS | Clinical Summary ---
Author Organization [facility] Address [address] [place] [address] Care Team Providers Care Veterinary Assistant Name Role Phone Unavailable Primary Care Provider Unavailabl e Allergies Active Allergy Reactions Criticality Noted Date Comments Citalopram Hydrobromide Other: See Comments palpitations Cephalexin Hives,Other: See Comments High 07/14/2013 Shortness of breath, throat felt tight Medications ACIDOPHILUS/BUL GARICUS (FLORANEX ORAL)Indication s:Globus sensation Take by mouth once daily. Active Ferrous Sulfate 325 mg (65 mg iron) tabletIndicatio ns:Globus sensation Take 325 mg by mouth once daily. Active FLUoxetine 20 mg capsuleIndicati ons:Globus sensation Take 20 mg by mouth once daily. Active ALBUTEROL SULFATE (PROAIR HFA INHALATION)Rubina cations:Globus sensation Inhale as instructed as needed. Active fluticasone 50 mcg/actuation nasal sprayIndication s:Globus sensation Use 1 [place] in each nostril as needed. Active PYRIDOXINE HCL (VITAMIN B-6 ORAL)Indication s:Globus sensation Take by mouth once daily. Active CYANOCOBALAMIN, VITAMIN B-12, (VITAMIN B-12 ORAL)Indication s:Globus sensation Take by mouth once daily. Active MULTIVIT &MINERALS/OLYA US FUM (MULTI VITAMIN ORAL)Indication s:Globus sensation Take by mouth once daily. Active DIPHENHYDRAMINE HCL (BENADRYL ORAL)Indication s:Globus sensation Take by mouth as needed. Active etonogestrel subdermal implant 68 mg (NEXPLANON)Rubina cations:Globus sensation 68 mg by SUBDERMAL route one time only. Left arm Active Social History Tobacco Use Types Packs/Day Years Used Date Smoking Tobacco: Never Alcohol Use Standard Drinks/Week Comments No 0 (1 standard drink = 0.6 oz pur e alcohol) Comments Unknown Sex and Gender Information Value Date Recorded Sex Assigned at Not on file Legal Sex Female 6:02 PM EDT Gender Identity Not on file Sexual Orientation Not on file Last Filed Vital Signs Vital Sign Reading Time Taken Comments Blood Pressure 108/68 07/14/2013 10:16 AM EDT Pulse 70 07/14/2013 10:16 AM EDT Temperature 36.5 C (97.7 F) 07/14/2013 10:16 AM EDT Respiratory Rate - - Oxygen Saturation 100% 07/14/2013 10:16 AM EDT Inhaled Oxygen Concentration - - Weight - - Height - - Body Mass Index - - Plan of Treatment Health Maintenance Due Date Last Done Comments Anxiety Screening 1998 Depression Screening 1998 HIV Screening 1998 Hepatitis C Screening 1998 DTaP,Tdap,Td Vaccine (1 - Tdap) 09/25/1999 Hepatitis B Vaccine (1 of 3 - 19+ 3-dose series) 09/24 Cervical Cancer Screening 2001 Mammogram Screening 2020 Covid-19 Vaccine ( - season) 2023 Influenza Vaccine (Season Ended) 2024
--- OUTSIDE RECORDS SUMMARY | 2024-07-22 21:34 | XMS_ITS | Encounter Summary ---
Author Organization [facility] Address [id number] [address] [place] [address] Care Team Providers Care Log Peeler Name Role Phone Services, [facility] Primary Care Provider Encounter Details Date Type Department Care Team (Late st Contact Info) Description 05/10/2020 Telephone [facility] [address] [place] [address] Kimberlyn Juarez CMA Social History Tobacco Use Types Packs/Day Years [...] encounter Miscellaneous Notes * Telephone Encounter - Kimberlyn Juarez CMA - 05/10/2020 2:16 PM EST Patient called and said that she will need a f/u mammogram and US done in October for the lymphnodes. Please put the order in, thank you Kimberlyn Juarez CMA 05/10/20 1417 documented in this encounter Plan of Treatment Upcoming Encounters Date Type Department Care Team (Latest Contact Info) Description 08/18/2024 12:30 PM EDT Hospital Encounter [address] [address] Chepe Ingram MD [address] [place] [address] 08/18/2024 12:30 PM EDT - 08/18/2024 1:30 PM EDT Surgery [address] [address] Chepe Ingram MD [address] [place] [address] REPAIR SCAPHOLUNATE [21298 (CPT )] Scheduled Procedures Name Priority Associated [...] documented as of this encounter Care Teams Log Peeler Relationship Specialty Start Date End Date [facility], [facility] [address] [place] PCP - General Family Medicine 10/05/23 documented as of this encounter
--- OUTSIDE RECORDS SUMMARY | 2024-07-22 21:34 | XMS_ITS | Encounter Summary ---
Author Organization [employer] Address [id number] [address] [place] [address] Care Team Providers Care Recruitment Officer Name Role Phone Services, [facility] [place] Primary Care Provider Encounter Details Date Type Department Care Team (Late st Contact Info) Description 05/28/2020 Telephone [facility] [address] [place] [phone] Zelalem Pathak MD [address]. Provider retired 05/31/24 [place] [address] Social History Tobacco Use Types Packs/Day Years [...] have Coronavirus / COVID-19? No / Unsure 05/25/2020 10:24 PM EDT documented as of this encounter Miscellaneous Notes * Telephone Encounter - Zelalem Pathak MD - 05/28/2020 8:13 AM EDT ER f/u? * Telephone Encounter - Vandana Gould - 05/28/2020 8:13 AM EDT I called and left a message on patient's phone to call the office if she needs a follow up documented in this encounter Plan of Treatment Upcoming Encounters Date Type Department Care Team (Latest Contact Info) Description 08/18/2024 12:30 PM EDT Hospital Encounter [address] [phone] Chepe Ingram MD [address] [place] [address] 08/18/2024 12:30 PM EDT - 08/18/2024 1:30 PM EDT Surgery [address] [address] Chepe Ingram MD [address] [place] [address] REPAIR SCAPHOLUNATE [23426 (CPT )] Scheduled Procedures Name Priority Associated [...] documented as of this encounter Care Teams Recruitment Officer Relationship Specialty Start Date End Date Services, [facility] [address] [place], [place] PCP - General Family Medicine 10/05/23 documented as of this encounter
--- OUTSIDE RECORDS SUMMARY | 2024-07-22 21:34 | XMS_ITS | Encounter Summary ---
Author Organization [facility] [employer] Address [id number] [address] [place] [address] Care Team Providers Care Penal Officer Name Role Phone Services, Pending [facility] To [facility] Primary Care Provider Reason for Visit * Reason Comments Med Refill Encounter Details Date Type Department Care Team (Late st Contact Info) Description 06/19/2020 Refill [facility] [address] [place] [phone] Zelalem Pathak MD [address]. Provider retired 05/31/24 [place], [place] [phone] Social History Tobacco Use Types Packs/Day Years [...] Description 08/18/2024 12:30 PM EDT Hospital Encounter [address] [phone] Chepe Ingram MD [email or web address] [place] [address] 08/18/2024 12:30 PM EDT - 08/18/2024 1:30 PM EDT Surgery [address] [phone] Chepe Ingram MD [address] [place] [address] REPAIR SCAPHOLUNATE [02855 (CPT )] Scheduled Procedures Name Priority Associated [...] documented as of this encounter Care Teams Penal Officer Relationship Specialty Start Date End Date [facility], Pending Sale To [facility] [address] [place] PCP - General Family Medicine 10/05/23 documented as of this encounter
--- OUTSIDE RECORDS SUMMARY | 2024-07-22 21:35 | XMS_ITS | Clinical Summary ---
Author Organization [facility] Address [address] [place] [address] Care Team Providers Care Cook Station Name Role Phone Loreto Mcneal APRN, NP Primary Care Prov ider Allergies Active Allergy Reactions Criticality Noted Date Comments Citalopram Hives 09/13/2016 Cephalexin Hives 09/13/2016 Metformin And Related Other (See Comments) 04/02 Hypoglycemia Medications ferrous sulfate 325 (65 Fe) MG tablet Take 1 tablet by mouth daily (with breakfast) Active fluticasone (FLONASE) 50 MCG/ACT nasal spray 1 spray by Nasal route daily Active FLUoxetine (PROZAC) 20 MG capsule Take 3 capsules by mouth daily Active temazepam (RESTORIL) 15 MG capsule Take 15 mg by mouth nightly as needed for Sleep Active methocarbamol (ROBAXIN) 500 MG tablet Take 1 tablet by mouth 3 times daily Active albuterol sulfate HFA 108 (90 Base) MCG/ACT inhaler Inhale 2 puffs into the lungs every 4 hours as needed for Wheezing Active zonisamide (ZONEGRAN) 100 MG capsule Take 100 mg by mouth daily Active topiramate (TOPAMAX) 200 MG tablet Take 200 mg by mouth daily Active montelukast (SINGULAIR) 10 MG tablet Take 1 tablet by mouth nightly Active naproxen (NAPROSYN) 500 MG tablet Take 1 tablet by mouth as needed for Pain Active hydrOXYzine (ATARAX) 25 MG tablet Take 1 tablet by mouth every 4 hours as needed for Itching 30 tablet 1 8 Active Additional Information Patient not taking.Reported on 11/11/2023 ibuprofen (ADVIL;MOTRIN) 600 MG tablet Take 1 tablet by mouth 4 times daily as needed for Pain 30 tablet 1 9 Active Additional Information Patient not taking.Reported on 01/13/2024 gabapentin (NEURONTIN) 100 MG capsule Take 3 capsules by mouth 3 times daily. Active tiZANidine (ZANAFLEX) 4 MG tablet Take 2 tablets by mouth every 6 hours as needed Active naproxen (NAPROSYN) 500 MG tablet Take 1 tablet by mouth 2 times daily (with meals) for 5 days 10 tablet 4 Active linaclotide (LINZESS) 290 MCG CAPS capsule Take 1 capsule by mouth every morning (before breakfast) Active empagliflozin (JARDIANCE) 25 MG tablet Take 1 tablet by mouth daily Active Liraglutide (VICTOZA) 18 MG/3ML SOPN SC injection Inject 1.8 mg into the skin daily Active probiotic (ALIGN/RISAQUAD ) CAPS capsule Take 1 capsule by mouth daily ALIGN Active pioglitazone (ACTOS) 30 MG tablet Take 1 tablet by mouth daily Active vitamin C (ASCORBIC ACID) 500 MG tablet Take 1 tablet by mouth 2 times daily Active Cholecalciferol (VITAMIN D3) 50 MCG (2000 UT) CAPS Take 1 capsule by mouth daily Active rosuvastatin (CRESTOR) 20 MG tablet Take 1 tablet by mouth daily Active docusate sodium (COLACE) 100 MG capsule Take 3 capsules by mouth Daily Active traZODone (DESYREL) 50 MG tablet Take 1 tablet by mouth nightly Active famotidine (PEPCID) 20 MG tablet Take 2 tablets by mouth daily Active meloxicam (MOBIC) 15 MG tablet Take 1 tablet by mouth daily Active lisdexamfetamin e (VYVANSE) 70 MG capsule Take 1 capsule by mouth every morning. Active DULoxetine (CYMBALTA) 60 MG extended release capsule Take 1 capsule by mouth daily Active fexofenadine (JONATHAN ALLERGY) 180 MG tablet Take 1 tablet by mouth daily Active Cyclobenzaprine HCl (FLEXERIL PO) Take by mouth in the morning and at bedtime Take 2 at night and 1 every morning Active Diclofenac Sodium (VOLTAREN PO) Take by mouth in the morning and at bedtime One every morning and two every night Active Active Problems No known active problems Encounters Date Type Department Care Team Description 07/16/2024 10:49 AM EDT - 07/16/2024 1:52 PM EDT Emergency [facility] Emergency Department [address] [place] [address] Post-traumatic osteoarthritis of left ankle (Primary Dx); Midline low back pain without sciatica, unspecified chronicity Discharge Disposition: Home or Self Care 07/16/2024 Travel from Last 3 Months Social History Tobacco [...] Mass Index 38.97 07/16/2024 11:01 AM EDT Plan of Treatment Upcoming Encounters Date Type Department Care Team (Late st Contact Info) Description 11/10/2024 11:30 AM EDT Office Visit [facility] UR[facility] [address] [facility] [address] [place] [phone] Karen Cotter, APPLICATION SPEC - BRICK OFFBEARER [address] [place] [phone] 1 year KUB Health Maintenance Due Date Last Done Comments Lipids 1990 Depression Screen 1992 Varicella vaccine (1 of 2 - 13+ 2-dose series) 1993 HIV screen 09/25/1995 Hepatitis C screen 1998 Pap smear 2001 Cervical cancer screen 2010 HPV (without or with Pap) 2010 Diabetes screen 09/25/2015 DTaP/Tdap/Td vaccine (1 - Tdap) 09/03/2021 09/02/2021 Breast cancer screen 03/16/2025 03/16/2023, 11/08/19 22 Pneumococcal 0-49 years Vaccine Aged Out 02/07/2022, 12/02/2017 No longer eligibl e based on patient's age to complete this topic Hepatitis A vaccine Aged Out 05/25/2023, 12/22/2022, 06/23/2022 No longer eligible based on patient's age to complete this topic Hepatitis B vaccine Completed 05/25/2023, 12/22/2022, 06/23/2022 COVID-19 Vaccine Completed 12/07/2023, , 02/07/2022 Flu vaccine Completed 12/07/2023, 12/01, 12/23/2021, Additional history exists HPV vaccine Aged Out No longer eligi ble based on patient's age to complete this topic Hib vaccine Aged Out No longer eligi ble based on patient's age to complete this topic Meningococcal (ACWY) vaccine Aged Out No longer eligible based on patient's age to complete this topic Meningococcal B vaccine Aged Out No l onger eligible based on patient's age to complete this topic Polio vaccine Aged Out No longer elig ible based on patient's age to complete this topic Procedures Procedure Name Priority Date/Time Associated Diagnosis Comments URINALYSIS WITH MICROSCOPIC STAT 07/16/2024 1:25 PM EDT XR ANKLE LEFT (MIN 3 VIEWS) STAT 07/16/2024 11:49 AM EDT XR HIP BILATERAL W AP PELVIS (2 VIEWS) STAT 07/16/2024 11:49 AM EDT XR LUMBAR SPINE (2-3 VIEWS) STAT 07/16/2024 11:46 AM EDT from Last 3 Months Results * (ABNORMAL) Urinalysis with Microscopic (07/16/2024 1:25 PM EDT) Color, UA Yellow Yellow 07/16/2024 1:25 PM [facility] Turbidity UA Clear Clear 07/16/2024 1:25 PM [facility] Glucose, Ur 3+(A) NEGATIVE mg/dL 07/16/2024 1:25 PM [facility] Bilirubin, Urine NEGATIVE NEGATIVE 07/16/2024 1:25 PM [facility] Ketones, Urine NEGATIVE NEGATIVE mg/dL 07/16/2024 1:25 PM [facility] Specific Barnard, UA 1.025(H) 1.010 - 1.020 07/16/2024 1:25 PM [facility] Urine Hgb NEGATIVE NEGATIVE 07/16/2024 1:25 PM [facility] pH, Urine 6.0 5.0 - 9.0 07/16/2024 1:25 PM [facility] Protein, UA NEGATIVE NEGATIVE mg/dL 07/16/2024 1:25 PM [facility] Urobilinogen, Urine Normal 0.0 - 1.0 EU/dL 07/16/2024 1:25 PM [facility] Nitrite, Urine NEGATIVE NEGATIVE 07/16/2024 1:25 PM [facility] Leukocyte Esterase, Urine NEGATIVE NEGATIVE 07/16/2024 1:25 PM [facility] WBC, UA 0 TO 2 0 - 5 /HPF 07/16/2024 1:25 PM [facility] RBC, UA 0 TO 2 0 - 2 /HPF 07/16/2024 1:25 PM EDT [facility] Epithelial Cells, UA 0 TO 2 0 - 25 /HPF 07/16/2024 1:25 PM EDT [facility] Bacteria, UA TRACE(A) None 07/16/2024 1:25 PM EDT [facility] Mucus, UA TRACE(A) None 07/16/2024 1:25 PM EDT [facility] Amorphous, UA TRACE(A) None 07/16/2024 1:25 PM EDT [facility] Urine URINE SPECIMEN / Unknown 07/16/2024 1:25 PM EDT 07/16/2024 1:29 PM EDT us Prieto Daniel PA-C URINE ORDERABLES Final Result [facility] [address] [phone] * XR ANKLE LEFT (MIN 3 VIEWS) [...] destructive lesions. IMPRESSION: 1. No acute abnormality. us Prieto Daniel PA-C [facility] ORDERAB LES Final Result * [...] hip osteoarthritis. IMPRESSION: 1. No acute abnormality. us Prieto Daniel PA-C [facility] ORDERAB LES Final Result * [...] cholecystectomy. IMPRESSION: 1. Mild multilevel spondylosis. Prieto Daniel PA-C [facility] ORDERAB LES Final Result from Last [address] [address] PLAN Care Teams Cook Station Relationship Specialty Start Date End Date Loreto Mcneal APRN - NP [address] [facility] [place] [address] PCP - General 11/11/23
--- OUTSIDE RECORDS SUMMARY | 2024-07-22 21:35 | XMS_ITS | Encounter Summary ---
Author Organization [facility] Address [address] [place] [address] Care Team Providers Care Bulk Fluids Handler Name Role Phone Zully Key VAULT CLERK Unavailable Shawna Dudley DO Primary Care Provider [phone] Sasha Santos DO Unavailable [phone] Reason for Visit * Reason Onset Date Comments Advice Only 07/20/2024 Encounter Details Date Type Department Care Team (Late st Contact Info) Description 07/20/2024 Telephone [facility] [address] [place] [phone] Cleo Zambrano MD [address] [place] [address] Advice Only Social History Tobacco Use Types Packs/Day Years [...] Miscellaneous Notes * Telephone Encounter - Austin Perkins - 07/20/2024 11:58 AM EDT Received request for surgery clearance based on last visit for wrist/hand surgery. Please advise. documented in this encounter Plan of Treatment Upcoming Encounters Date Type Department Care Team (Late st Contact Info) Description 08/04/2024 10:30 AM EDT Office Visit [facility] [address] [place] [address] Cleo Zambrano MD [address] [place] [address] 08/18/2024 9:45 AM EDT Office Visit [facility] [address] [place] [phone] Mendez Ortiz DO [address] [place], [place] [phone] 09/26/2024 2:20 PM EDT Office Visit [facility] [address] [place] [phone] Brittany Neville NP [address] [facility] [address] [place], [place] 05/31/2025 1:00 PM EDT Office Visit [facility] [address] [place] [place] [address] Roel Garber DO [address] [facility] [address] [facility] [address] [place], [place] [phone] documented as of this encounter Visit Diagnoses Not on filedocumented in this encounter Care Teams Bulk Fluids Handler Relationship Specialty Start Date End Date Shawna Dudley DO [address] [place] [address] PCP - General Family Medicine 04/14/22 Key Andrea, JO ANN [address] [place] [address] Referring Physician Family Medicine 08/13/23 Sasha Santos DO [address] [place] [phone] Referring Physician Neurology 05/10/24 documented as of this encounter
--- OUTSIDE RECORDS SUMMARY | 2024-07-22 21:35 | XMS_ITS | Encounter Summary ---
Author Organization [facility] [employer] [facility] Address [id number] [address] [place] [address] Care Team Providers Care Chemical Detection Expert Name Role Phone Services, [facility] Primary Care Provider Reason for Visit * Reason Comments Med Refill Encounter Details Date Type Department Care Team (Late st Contact Info) Description 08/11/2017 Refill [facility] Family Medicine [address] [place] [address] [place] [phone] Francia High, REAL ESTATE ECONOMIST-HAT MENDER [address] [facility] [address] [place] [address] Social History Tobacco Use Types Packs/Day Years [...] Description 08/18/2024 12:30 PM EDT Hospital Encounter [facility] - Surgery [address] [place] [phone] Chepe Ingram MD [address] [place] [address] 08/18/2024 12:30 PM EDT - 08/18/2024 1:30 PM EDT Surgery [facility] - Surgery [address] [place] [phone] Chepe Ingram MD [address] [place] [address] REPAIR SCAPHOLUNATE [16691 (CPT )] Scheduled Procedures Name Priority Associated [...] Noted Time PHQ-9 Depression Total Score: 0 07/04/19 18 11:00 AM EDT documented as of this encounter Care Teams Chemical Detection Expert Relationship Specialty Start Date End Date Services, [facility] [address] [place], [place] PCP - General Family Medicine 10/05/23 documented as of this encounter
--- OUTSIDE RECORDS SUMMARY | 2024-07-22 21:35 | XMS_ITS | Encounter Summary ---
Author Organization [facility] [employer] Address [id number] [address] [place] [address] Care Team Providers Care Senior Controls Analyst Name Role Phone Services, [facility] Primary Care Provider Reason for Visit * Reason Onset Date Comments Med Refill 06/19/2017 Encounter Details Date Type Department Care Team (Late st Contact Info) Description 06/19/2017 Refill [facility] Family Medicine [address] [place] [address] Amy Cerna LPN Social History Tobacco Use [...] Description 08/18/2024 12:30 PM EDT Hospital Encounter [facility] - Surgery [address] [place] [address] Chepe Ingram MD [address] [place] [address] 08/18/2024 12:30 PM EDT - 08/18/2024 1:30 PM EDT Surgery [facility] - Surgery [address] [place] [phone] Chepe Ingram MD [address] [place] [address] REPAIR SCAPHOLUNATE [93955 (CPT )] Scheduled Procedures Name Priority Associated [...] Rule-Out 05/25/2020 05/25/2020 05/25/2020 11:52 PM EDT documented as of this encounter Care Teams Senior Controls Analyst Relationship Specialty Start Date End Date [facility], [facility] [address] [place] PCP - General Family Medicine 10/05/23 documented as of this encounter
--- OUTSIDE RECORDS SUMMARY | 2024-07-22 21:35 | XMS_ITS | Encounter Summary ---
Author Organization [facility] [employer] [facility] tem Address [id number] [address] [place] [address] Care Team Providers Care Flame Cutter Name Role Phone Services, [facility] Primary Care Provider Encounter Details Date Type Department Care Team (Late st Contact Info) Description 10/30/2017 Telephone [facility] Family Medicine [address] [place] [phone] Amy Cerna LPN Social History Tobacco Use [...] Description 08/18/2024 12:30 PM EDT Hospital Encounter [facility] Surgery [address] [place] [phone] Chepe Ingram MD [address] [place] [address] 08/18/2024 12:30 PM EDT - 08/18/2024 1:30 PM EDT Surgery [facility] Surgery [address] [place] [phone] Chepe Ingram MD [address] [place] [address] REPAIR SCAPHOLUNATE [44683 (CPT )] Scheduled Procedures Name Priority Associated [...] Noted Time PHQ-9 Depression Total Score: 0 10/31/19 18 9:00 AM EDT documented as of this encounter Care Teams Flame Cutter Relationship Specialty Start Date End Date [facility], [facility] [address] [place], [place] PCP - General Family Medicine 10/05/23 documented as of this encounter
--- OUTSIDE RECORDS SUMMARY | 2024-07-22 21:35 | XMS_ITS | Clinical Summary ---
Author Organization [facility] Address [address] [place] [address] Care Team Providers Care Screen Writer Name Role Phone Zully Key COKE OVEN PATCHER Unavailable Shawna Dudley DO Primary Care Provider [phone] Sasha Santos DO Unavailable [phone] Allergies Active Allergy Reactions Criticality Noted Date Comments Cephalexin Hives High 07/14/2013 Other Reaction(s): Other: See Comments, Unknown Shortness of breath, throat felt tight Other Reaction(s): Swelling of Lip/Tongue/Throat, hives Citalopram 07/14/2013 Other Reaction(s): Other: See Comments, Unknown palpitations Other Reaction(s): Palpitations, anaphylaxis Metformin High 04/15/2022 Severe hypoglycemia Metformin And Related 04/20/2023 Other Reaction(s): Other (See Comments), Unknown Reaction Hypoglycemia Poison Devorah Extract 04/15/2022 Medications traMADol (Ultram) 50 MG tablet Take 50 mg by mouth Daily as needed 01/22/20 23 Active traZODone (Desyrel) 50 MG tablet Take 50-100 mg by mouth at bedtime Active rosuvastatin (Crestor) 10 MG tablet Take 10 mg by mouth Daily Active Probiotic Product (Align) capsule Take 1 capsule by mouth Daily 02/17/20 23 Active naproxen (Naprosyn) 500 MG tablet Take 500 mg by mouth in the morning and 500 mg in the evening. Take with meals. 12/03/19 23 Active Multiple Vitamin (Tab-A-Karely) tablet Take 1 tablet by mouth Daily 12/27/19 Active lurasidone (Latuda) 120 MG tablet Take 80 mg by mouth Daily Take with food. Active Vyvanse 70 MG capsule Take 70 mg by mouth Daily 02/28/20 23 Active lamoTRIgine (LaMICtal) 200 MG tablet Take 200 mg by mouth Daily Active fluticasone (Flonase) 50 MCG/ACT nasal spray Administer 1 spray into each nostril 1 (one) time each day at the same time Active FLUoxetine (PROzac) 60 MG tablet Take 60 mg by mouth Daily Active fexofenadine (Ros) 180 MG tablet Take 180 mg by mouth Daily 02/25/20 Active etonogestrel-elut ing (Nexplanon) 68 mg contraceptive implant Inject 68 mg under the skin 1 (one) time Active docusate sodium (Colace) 100 MG capsule Take 300 mg by mouth in the morning and 300 mg in the evening and 300 mg before bedtime. Active cholecalciferol (Vitamin D-3) 50 MCG (2000 UT) capsule Take 2,000 Units by mouth Daily 02/25/20 Active ascorbic acid (Vitamin C) 500 MG tablet Take 500 mg by mouth in the morning and 500 mg before bedtime. 02/25/20 Active albuterol HFA (Ventolin HFA) 90 mcg/act inhaler Inhale 1 puff every 4 (four) hours if needed Active linaCLOtide (Linzess) 290 MCG capsule Take 290 mcg by mouth in the morning. Take before meals. Do not crush or chew. Active DULoxetine (Cymbalta) [address] capsule Take 60 mg by mouth in the morning and 60 mg before bedtime. Do not crush or chew. Active cyclobenzaprine (Flexeril) 10 MG tablet Take 10 mg by mouth as needed in the morning and 10 mg as needed at noon and 10 mg as needed in the evening for muscle spasms. 11/16/19 24 Active diclofenac (Voltaren) 75 MG EC tablet Take 75 mg by mouth as needed in the morning and 75 mg as needed in the evening. 11/16/19 24 Active mupirocin (Bactroban) 2 % ointmentIndicatio ns:Chronic rhinitis apply to left nose TWICE DAILY for 2 (TWO) weeks NEEDED 15 g 2 01/02/20 25 Active gabapentin (Neurontin) 300 MG capsuleIndication s:Paresthesias 1 po 2-3 times a day. 90 capsule 2 03/31/19 25 Active metoprolol succinate XL (Toprol-XL) 25 MG 24 hr tablet 03/21/19 25 Active empagliflozin (Jardiance) 25 MGIndications:Typ e 2 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, unspecified whether custodial insulin use Take 1 tablet (25 mg) by mouth Daily 30 tablet 2 04/07/19 25 Active pioglitazone (Actos) 30 MG tabletIndications :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, unspecified whether custodial insulin use Take 1 tablet (30 mg) by mouth Daily 30 tablet 3 04/07/19 25 Active ciclopirox (Loprox) 0.77 % creamIndications: Rash and other nonspecific skin eruption APPLY TO THE AFFECTED AREA(S) TWICE DAILY 90 g 04/21/19 25 Active B Complex Vitamins (vitamin B complex) tablet Take 1 tablet by mouth Daily 04/20/19 25 Active pantoprazole (ProtoNix) 40 MG EC tablet Take 40 mg by mouth in the morning. Take before meals. Do not crush, chew, or split. Active ferrous sulfate 325 (65 Fe) MG tablet Take 325 mg by mouth in the morning. Take with meals. Active lansoprazole (Prevacid) [address] capsule Take 30 mg by mouth Daily 05/20/19 25 Active famotidine (Pepcid) 40 MG tablet Take 40 mg by mouth Daily 05/20/19 25 Active Mounjaro 2.5 MG/0.5ML solution auto-injector INJECT 2.5 MG SUBCUTANEOUSLY (UNDER THE SKIN) EVERY 7 DAYS 06/02/19 25 Active SUMAtriptan (Imitrex) 100 MG tabletIndications :Migraine with aura and without status migrainosus, not intractable (CMS/HCC) TAKE 1 TABLET BY MOUTH DAILY NEEDED FOR MIGRAINE 9 tablet 1 06/21/19 25 Active Active Problems Problem Noted Date Diagnosed Date Type 2 diabetes mellitus with hyperglycemia 01/30 Vitamin D deficiency, unspecified 02/11/2024 Hyperlipidemia, unspecified 02/11/2024 Well woman exam with routine gynecological exam 05/25/2023 Anemia 03/10/2023 Asthma 03/10/2023 Bilateral foot pain 03/10/2023 Chronic rhinitis 03/10/2023 Diverticulitis 03/10/2023 Obesity 03/10/2023 Primary osteoarthritis, left ankle and foot 11/2023 Recurrent epistaxis 03/10/2023 Intervertebral disc 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 12/02/2022 Axillary lymphadenopathy 05/10/2020 Disc displacement, lumbar 10/11/2018 Overview (03/10/2023): Added automatically from request for surgery [id number] Lumbosacral spondylosis without myelopathy 07/22 Overview (03/10/2023): Added automatically from request for surgery [id number] PTSD (post-traumatic stress disorder) 06/16/2018 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 Cervical disc displacement 09/21/2017 Acute cholecystitis 09/15/2016 Resolved Problems Problem Noted Date Diagnosed Date Resolved Date Attention deficit hyperactivity disorder 04/27/2024 04/27/2024 Circadian rhythm sleep disor min, shift work type 04/27/2024 04/27/2024 Impulse control disorder 04/27/2024 Mixed bipolar affective disorder, moderate 04/27/2024 04/27/2024 Macromastia 10/08/2023 02/18/2024 Mass of upper outer quadrant of right breast 02/18/2024 Symptomatic mammary hypertrophy 06/02/2023 02/18/2024 Hot flashes 03/10/2023 03/10/2023 Open wound of toe without complication 03/10/2023 03/10/2023 Disorder of sacrum 01/29/2023 Postoperative abscess 09/28/20162023 Encounters Date Type Department Care Team Description 07/20/2024 Telephone [facility] [address] [place] [address] Cleo Zambrano MD Advice Only 06/30/2024 9:40 AM EDT Procedure Visit [facility] [address] [place] [address] [place] [address] Roel Garber, DO Nexplanon removal 06/30/[address] [address] [place] [address] Bela Ribeiro LPN 06/27/2024 Abstract [facility] [address] [place] [address] Roel Garber, DO 06/17/2024 Refill [facility] [place] [address] [place] [address] Brittany Neville, JO ANN Migraine with aura and without status migrainosus, not intractable ([facility]/HCC) 06/13/2024 9:45 AM EDT Office Visit [facility] [place] [address] [place] [phone] Mendez Ortiz, Obstructive sleep apnea (Primary Dx); Intolerance of continuous positive airway pressure (CPAP) ventilation; Class 3 severe obesity with serious comorbidity and body mass index (BMI) of 40.0 to 44.9 in adult, unspecified obesity type 06/13/2024 Bamboo flowsheet [facility] [place] [address] [place] [address] Mendez Ortiz, DO 06/13/2024 Travel 06/07/2024 Abstract [facility] [address] [place] [address] Bela Ribeiro LPN 06/01/2024 Abstract [facility] [address] [place] [address] Roel Garber, 05/31/2024 9:45 AM EDT Procedure Visit [facility] Mendez Ortiz, Obstructive sleep apnea (Primary Dx); Intolerance of continuous positive airway pressure (CPAP) ventilation 05/27/2024 Clinisync Result Encounter [facility] External Department Unsolicited Roel Garber, 05/26/2024 11:00 AM EDT Office Visit [facility] [address] [place] [address] Roel Garber DO Well woman exam with routine gynecological exam; Breast cancer screening by mammogram 05/26/2024 Clinisync Result Encounter [facility] External Department Unsolicited Shirlene RoelDO 05/19/2024 Refill [facility] [address] [place] [address] Archana Naylor, AUTO HAULER-LINER ROLL CHANGER Rash and other nonspecific skin eruption 05/10/2024 8:00 AM EDT Office Visit [facility] [place] [address] [place] [address] Sasha Santos DO JADON (obstructive sleep apnea) (Primary Dx); Migraine without aura and without status migrainosus, not intractable (CMS/HCC) ; Chronic bilateral low back pain, unspecified whether sciatica present; Neck pain; Low back pain at multiple sites; Class 2 severe obesity due to excess calories with serious comorbidity and body mass index (BMI) of 38.0 to 38.9 in adult (CMS/HCC) 05/10/2024 Bamboo flowsheet [facility] [address] [place] [address] Sasha Santos DO 04/28/2024 10:30 AM EST Office Visit [facility] [place] [address] [place] [address] Mendez Ortiz DO Obstructive sleep apnea (Primary Dx); Intolerance of continuous positive airway pressure (CPAP) ventilation; Body mass index 34.0-34.9, adult 04/28/2024 Bamboo flowsheet [facility] [place] [address] [place] [address] Mendez Ortiz DO 04/28/2024 Travel 04/25/2024 Bamboo flowsheet [facility] [address] [facility] [address] [place] [address] Brittany Neville NP from Last 3 Months Immunizations Immunization Administration Dates Next Due Hep A / Hep B 05/25/2023,12/22/2022,06/23/2022 Influenza Whole 12/03/2012, 2,12/23/2010,2008 Influenza, injectable, quadr ivalent, preservative free 12/23/2021,12/24/2020,12/19/2019,2018,12/02/2017 Influenza, live, intranasal 12/19/2013 Influenza, recombinant, quad rivalent, injectable, preservative free 12/22/2022 Influenza, seasonal, injecta ble, preservative free 12/07/2023,10/10/2016 Pneumococcal Conjugate PCV 13 12/02/2017 Pneumococcal Conjugate PCV 20 02/07/2022 Td (adult), unspecified 09/02/2021 Family History Medical History Relation Name Comments Melanoma Mother Relation Name Status Comments Daughter Alive Father Mother Alive Son 1 Alive Son 2 Alive Son 3 Alive Son 4 Alive Social History Tobacco Use Types Packs/Day Years [...] Sign Reading Time Taken Comments Blood Pressure 128/92 06/30/2024 9:56 AM EDT Pulse 102 05/10/2024 8:03 AM EDT Temperature - - Respiratory Rate 16 04/07/2024 10:31 AM EST Oxygen Saturation 99% 05/10/2024 8:03 AM EDT Inhaled Oxygen Concentration - - Weight 104 kg (230 lb) 06/13/2024 9:51 AM EDT Height 160 cm (5' 3 ) 06/13/2024 9:51 AM EDT Body Mass Index 40.74 06/13/2024 9:51 AM EDT Plan of Treatment Upcoming Encounters Date Type Department Care Team (Late st Contact Info) Description 08/04/2024 10:30 AM EDT Office Visit [facility] [address] [place] [address] Cleo Zambrano MD [address] [place] [address] 08/18/2024 9:45 AM EDT Office Visit [facility] [place] [address] [place] [phone] Mendez Ortiz, [address] [facility] [place] [address] 09/26/2024 2:20 PM EDT Office Visit [facility] [address] [place] [address] Brittany Neville NP [address] [place], [place] 05/31/2025 1:00 PM EDT Office Visit [facility] [address] [facility] [facility] [place] [address] Roel Garber DO [address] [facility] [address] [place], [place] [phone] Health Maintenance Due Date Last Done Comments Mammogram 05/27/2025 05/27/2024, 03/02, 03/16/2023, Additional history exists Pap Smear 05/24/2026 05/25/2023, 05/19/2022 Cervical Cancer Screening 05/20/2027 HPV/Cotest 05/20/2027 Influenza Vaccine Completed 12/07/2023, , 12/23/2021, Additional history exists Procedures Procedure Name Priority Date/Time Associated Diagnosis Comments TOPOGRAPHICAL ENGINEER INSERTION/REMOVAL OF CONTRACEPTIVE CAPSULE Routine 06/30/2024 10:51 AM EDT Nexplanon removal MM TOMOSYNTHESIS SCREENING BI 05/27/2024 4:48 PM EDT POCT URINALYSIS DIPSTICK Routine 05/26/2024 11:42 AM EDT Well woman exam with routine gynecological exam IGP,APTIMA HPV,AGE GDLN Routine 05/26/2024 11:19 AM EDT PAP SMEAR Routine 05/25/2023 12:00 AM EDT from Last 3 Months or Most Recently Relevant to Health Maintenance Results * Insertion/Removal of Contraceptive Capsule (06/30/2024 10:51 AM EDT) Narrative Bela Ribeiro LPN - 06/30/2024 10:51 AM EDT Bela Ribeiro LPN 06/30/2024 12:29 PM Insertion/Removal of Contraceptive Capsule Date/Time: 06/30/2024 10:51 AM Performed by: Roel Garber DO Authorized by: Roel Garber DO Consent: Consent obtained: Written Consent given by: Patient Patient questions answered: yes Patient agrees, verbalizes understanding, and wants to proceed: yes Educational handouts given: no Instructions and paperwork completed: yes Indication: Indication: Presence of non-biodegradable drug delivery implant Pre-procedure: Pre-procedure timeout performed: yes Prepped with: alcohol 70% Local anesthetic: Lidocaine without epinephrine The site was cleaned and prepped in a sterile fashion: yes Procedure: Procedure: Removal Small stab incision was made in arm: yes Left/right: Left Preloaded contraceptive capsule trocar was placed subdermally: no Visualization of implant was obtained: no Contraceptive capsule was inserted and trocar removed: no Visualization of notch in stylet and palpation of device: no Palpation confirms placement by provider and patient: no Site was closed with steri-strips and pressure bandage applied: yes us Roel Garber DO IN CLINIC/BEDSIDE ORDERABLES Fin al Result * MM TOMOSYNTHESIS SCREENING BI (05/27/2024 4:48 PM EDT) Anatomical Region Laterality Modality Other 05/27/2024 4:48 PM EDT Narrative 05/27/2024 4:49 PM EDT [address] [address] Mammography Report Signed Patient: PEE WHITEHEAD MR#: [id number] : 1980 Acct:[id number] Age/Sex: 43 / F ADM Date: 05/27/24 Loc: MAMMO Attending Dr: Roel Garber D.O. Ordering Physician: Roel Garber D.O. Results: Date of Service: 05/27/24 Follow Up: Procedure(s): MM tomosynthesis screening BI Accession Number(s): [id number] cc: Roel Garber D.O.; Loreto Mcneal NP Patient Name: PEE WHITEHEAD MR#: [id number] : 1980 Exam Date: 05/27/2024 Ordering Doctor: DR Roel Garber . RADIOLOGY REPORT PROCEDURE: MM TOMOSYNTHESIS SCREENING BI COMPARISON: MM DIAGNOSTIC MAMMO UNILAT RT, 03/25/2023. MG MAMM SCREEN 3D STELLA CAD, 03/16/2023. MM TOMOSYNTHESIS SCREENING BI, 11/07/2021. MM TOMOSYNTHESIS DIAGNOSTIC BI, 11/06/2020. INDICATIONS: Screening Calculator Name NCI Breast Cancer Risk Assessment Tool 5 Year Breast Cancer Risk Not Reported. Lifetime Breast Cancer Risk Not Reported. Personal Breast Cancer No Personal Ovarian Cancer No Treatments None Family Cancers None LOCATION: [facility] BREAST COMPOSITION: There are scattered areas of [...] on 05/27/2024 at 16:38 Approved by: Mio Srera DO on 05/27/2024 at 16:48 Dictated By: Mio Serra D.O. Signed By: 05/27/24 1649 DD/ 47 TD/TT: Community Health Representative: Procedure Note Radiology, Radiologist, - 05/27/2024 [place] [address] Mammography Report Signed Patient: PEE WHITEHEAD AMR#: [id number] : 1980Acct:[id number] Age/Sex: 43 / FADM Date: 05/27/24 Loc: MAMMO Attending Dr: Roel Garber D.O. Ordering Physician: Roel Garber D.O.Results: Date of Service: 05/27/24Follow Up: Procedure(s): MM tomosynthesis screening BI Accession Number(s): [id number] cc: Roel Garber D.O.; Loreto Mcneal NP Patient Name: PEE WHITEHEAD MR#: [id number] : 1980 Exam Date: 05/27/2024 Ordering Doctor: DR Roel Garber . RADIOLOGY REPORT PROCEDURE: MM TOMOSYNTHESIS SCREENING BI COMPARISON: MM DIAGNOSTIC MAMMO UNILAT RT, 03/25/2023. MG MAMM [id number] STELLA CAD, 03/16/2023. MM TOMOSYNTHESIS SCREENING BI, 11/07/2021. MM TOMOSYNTHESIS DIAGNOSTIC BI, 11/06/2020. INDICATIONS: Screening Calculator Name NCI Breast Cancer Risk Assessment Tool 5 Year Breast Cancer Risk Not Reported. Lifetime Breast Cancer Risk Not Reported. Personal Breast Cancer No Personal Ovarian Cancer No Treatments None Family Cancers None LOCATION: [facility] BREAST COMPOSITION: There are scattered areas of fibroglandulardensity. FINDINGS: RIGHT BREAST: No significant suspicious finding. LEFT BREAST: No significant suspicious finding. DIAGNOSTIC CATEGORY 1--NEGATIVE. RECOMMENDATIONS: ROUTINE MAMMOGRAM AND CLINICAL EVALUATION IN 12 MONTHS. PLEASE NOTE: A NORMAL MAMMOGRAM DOES NOT EXCLUDE THE POSSIBILITY OFBREAST CANCER. A CLINICALLY SUSPICIOUS PALPABLE LUMP SHOULD BE BIOPSIED. Dictated by: Mio Serra DO on 05/27/2024 at 16:38 Approved by: Mio Serra DO on 05/27/2024 at 16:48 Dictated By: Mio Serra D.O. Signed By:05/27/241648 DD/ 47 TD/TT: Community Health Representative: Roel Garber DO [facility] Final Result * (ABNORMAL) POCT urinalysis dipstick manually resulted (05/26/2024 11:42 AM EDT) Color, UA Yellow Clarity, UA Clear Glucose, UA Positive Negative - 1999(110) ++++ mg/dL Comment:500 Bilirubin, UA Negative Negative - 4(70) +++ mg/dL Ketones, UA Negative Negative - 160(16) ++++ mg/dL Spec Grav, UA 1.010 1 - 1.03 Blood, UA Negative Negative - 50 Donta/mcL pH, UA 6.0 5 - 9 Protein, UA Negative Negative - 1999(20) ++++ mg/dL Urobilinogen, UA 0.2 0.2 - 12 mg/dL Leukocytes, UA Negative Negative - 500+++ Quique/mcL Nitrite, UA Negative Negative - Positive Urine 05/26/2024 11:4 2 AM EDT Roel Garber DO POINT OF CARE TEST ENTER/EDIT OR DERABLES Final Result * IGP,APTIMA HPV,AGE GDLN (05/26/2024 11:19 AM EDT) Pathologist [facility] GDLN ACOG TESTING Note . [facility] Comment: TESTS RESULT FLAG UNITS REF RANGE LAB Clinician Provided Cytology Information Source.............Cervix;Endocervix No. of containers..01 ThinPrep Vial Age Algo ACOG Rosana... FLAG LEGEND: L-Low Normal,H-High Normal,LL-Alert Low,HH-Alert High <-Panic Low,>-Panic High,A-Abnormal,AA-Critical Abnormal Performed at: 01 [facility] [address] [place] [address] Kristin Matute MD, IGP, APTIMA HPV, RFX 16/18,45 Note . [facility] Comment: TESTS RESULT FLAG UNITS REF RANGE LAB DIAGNOSIS: 02 NEGATIVE FOR INTRAEPITHELIAL LESION OR MALIGNANCY. THIS SPECIMEN WAS RESCREENED PART OF OUR ACADEMIC ADVISING DIRECTOR PROGRAM. Specimen adequacy: 02 Satisfactory for evaluation. Endocervical and/or squamous metaplastic cells (endocervical component) are present. Performed by: 02 Caro Tejada, Mortgage Loan Assistant (ASC) QC reviewed by: 02 Hannah Valadez, Mortgage Loan Assistant ([facility]) . 02 Note: Note 02 The Pap [...] <-Panic Low,>-Panic High,A-Abnormal,AA-Critical Abnormal Performed at: [address] [address] Kristin Matute MD, HPV APTIMA Negative Negative [facility] Comment: This nucleic acid amplification test detects fourteen high- risk HPV types (16,18,31,33,35,39,45,51,52,56,58,59,66,68) without differentiation. Performed at: = - [facility] [address] [id number] Material Liaison: Kristin Matute MD, Phone: [phone] Performed at: [facility] [address] [id number] Material Liaison: Kristin Matute MD, Phone: [phone] 05/26/2024 11:1 9 AM EDT 05/26/2024 3:39 PM EDT Narrative [facility] - 05/31/2024 2:09 PM EDT BRUSH-SPATULA CERVIX ENDOCERVIX Roel Shirlene DO LAB BLOOD ORDERABLES Final Resul t [facility] * Pap Smear (05/25/2023 12:00 AM EDT) Swab Cervical swab / Unknown Roel Shirlene DO LAB CYTOLOGY ORDERABLES Final Re sult EXTERNAL LAB from Last 3 Months or Most Recently Relevant to Health Maintenance Insurance [employer] Care Teams Screen Writer Relationship Specialty Start Date End Date Shawna Dudley DO [address] [place] [place] [address] PCP - General Family Medicine 04/14/22 Key Andrea NP [address] [place] [address] Referring Physician Family Medicine 08/13/23 Sasha Santos DO [address] [place] [address] Referring Physician Neurology 05/10/24
--- OUTSIDE RECORDS SUMMARY | 2024-07-22 21:35 | XMS_ITS | Encounter Summary ---
Author Organization [facility] Address [address] [place] [address] Care Team Providers Care Baker Paint Name Role Phone Zully, Key COMMISSARY CLERK Unavailable Shawna Dudley DO Primary Care Provider [phone] Sasha Santos DO Unavailable [phone] Encounter Details Date Type Department Care Team (Late Contact Info) Description 06/27/2024 Abstract [facility] [address] [facility] [place] [address] Roel Garber [address] [facility] [address] [place], [place] [id number] Social History Tobacco Use Types Packs/Day Years [...] Office Visit [facility] [address] [place] [address] Cleo Zambrano MD [address] [place] [address] 08/18/2024 9:45 AM EDT Office Visit [facility] [place] [address] [place] [address] Mendez Ortiz DO [address] [place], [place] [phone] 09/26/2024 2:20 PM EDT Office Visit [facility] [place] [address] [place] [address] Brittany Neville NP [address] [place], [place] 05/31/2025 1:00 PM EDT Office Visit [facility] [address] [facility] [place] [address] Roel Garber DO [address] [facility] [address] [address] [place], [place] [phone] documented as of this encounter Visit Diagnoses Not on filedocumented in this encounter Care Teams Baker Paint Relationship Specialty Start Date End Date Shawna Dudley DO [address] [place], [place] [phone] PCP - General Family Medicine 04/14/22 Key Andrea, JO ANN [address] [place] [address] Referring Physician Family Medicine 08/13/23 Sasha Santos DO [address] [place] [address] Referring Physician Neurology 05/10/24 documented as of this encounter
--- OUTSIDE RECORDS SUMMARY | 2024-07-22 21:35 | XMS_ITS | Encounter Summary ---
Author Organization [facility] tem Address [id number] [address] [place] [address] Care Team Providers Care Costume Mistress Name Role Phone Services, [facility] Primary Care Provider Reason for Visit * Reason Onset Date Comments Med Refill 11/10/2017 Encounter Details Date Type Department Care Team (Late st Contact Info) Description 11/10/2017 Refill [facility] Family Medicine [address] [place] [phone] Amy Cerna LPN Social History Tobacco Use [...] Description 08/18/2024 12:30 PM EDT Hospital Encounter [facility] - Surgery [address] [place] [phone] Chepe Ingram MD [address] [facility] [address] [place] [address] 08/18/2024 12:30 PM EDT - 08/18/2024 1:30 PM EDT Surgery [facility] - Surgery [address] [place] [phone] Chepe Ingram MD [address] [facility] [address] [place] [address] REPAIR SCAPHOLUNATE [32486 (CPT )] Scheduled Procedures Name Priority Associated [...] Score: 0 11/11/19 18 10:00 AM EDT documented as of this encounter Care Teams Costume Mistress Relationship Specialty Start Date End Date Services, [facility] [address] [place], [place] PCP - General Family Medicine 10/05/23 documented as of this encounter
--- OUTSIDE RECORDS SUMMARY | 2024-07-22 21:35 | XMS_ITS | Encounter Summary ---
Author Organization [facility] Address [address] [facility] [place] [address] Care Team Providers Care Sales And Marketing Vice President Name Role Phone Loreto Mcneal APRN, NP Primary Care Prov ider Encounter Details Date Type Department Care Team (Latest Contact Info) Description 07/16/2024 Travel Social History Tobacco Use Types Packs/Day Years [...] Description 11/10/2024 11:30 AM EDT Office Visit [facility] Part of [address] [place] [address] Karen Cotter, PAROLE OFFICER - PARAFFIN MACHINE OPERATOR [address] [place] [address] [address] [place] [address] 1 year KUB documented as of this encounter Visit Diagnoses Not on filedocumented in this encounter Care Teams Sales And Marketing Vice President Relationship Specialty Start Date End Date Loreto Mcneal APRN - SEED CLEANER [address] [place] [address] PCP - General 11/11/23 documented as of this encounter
--- OUTSIDE RECORDS SUMMARY | 2024-07-22 21:35 | XMS_ITS | Encounter Summary ---
Author Organization [facility] tem Address [id number] [address] [place] [address] Care Team Providers Care Bioinformatics Technician Name Role Phone Services, [facility] Primary Care Provider Reason for Visit * Reason Comments Med Refill Encounter Details Date Type Department Care Team (Late st Contact Info) Description 01/23/2019 Refill [facility] [address] [place] [phone] Zelalem Pathak MD [address] Provider retired 05/31/24 [place], [place] [phone] Social History Tobacco Use Types Packs/Day Years [...] Description 08/18/2024 12:30 PM EDT Hospital Encounter [facility] - Surgery [address] [place] [phone] Chepe Ingram MD [address] [facility] [address] [place] [address] 08/18/2024 12:30 PM EDT - 08/18/2024 1:30 PM EDT Surgery [facility] - [facility] [address] [place] [phone] Chepe Ingram MD [address] [facility] [address] [place] [address] REPAIR SCAPHOLUNATE [30727 (CPT )] Scheduled Procedures Name Priority Associated [...] Noted Time PHQ-9 Depression Total Score: 0 01/22/20 9:00 AM EST A Body Mass Index follow-up plan has been documented for the patient 07/22/2018 12:23 PM EDT documented as of this encounter Care Teams Bioinformatics Technician Relationship Specialty Start Date End Date Services, [facility] [address] [place] PCP - General Family Medicine 10/05/23 documented as of this encounter
--- OUTSIDE RECORDS SUMMARY | 2024-07-22 21:35 | XMS_ITS | Encounter Summary ---
Author Organization [facility] tem Address [id number] [address] [place] [address] Care Team Providers Care Pharmacy Service Associate Name Role Phone Services, [facility] Primary Care Provider Reason for Visit * Reason Comments Med Refill Encounter Details Date Type Department Care Team (Late st Contact Info) Description 06/11/[address] [facility] Family Medicine [address] [place] [address] [address] [place] [phone] Francia High, PATHOLOGY SUPERVISOR-PRESIDENT AND CHIEF COMMERCIAL OFFICER [address] [facility] [address] [place] [id number] Social History Tobacco Use Types Packs/Day [...] Description 08/18/2024 12:30 PM EDT Hospital Encounter [facility] - Surgery [address] [place] [phone] Chepe Ingram MD [address] [facility] [place] [address] 08/18/2024 12:30 PM EDT - 08/18/2024 1:30 PM EDT Surgery [facility] - Surgery [address] [place] [address] Chepe Ingram MD [address] [facility] [place] [address] REPAIR SCAPHOLUNATE [81241 (CPT )] Scheduled Procedures Name Priority Associated [...] documented as of this encounter Care Teams Pharmacy Service Associate Relationship Specialty Start Date End Date Services, [facility] [address] [place], [place] PCP - General Family Medicine 10/05/23 documented as of this encounter
--- NOTE | 2024-07-22 21:52 | XR_ITS ---
The [address] [address] Patient Name: PEE WHITEHEAD MRN: [id number] date: 1980 Sex: F Assigned Patient Location: ER Current Patient Location: ER Accession/Order Number: [id number] Exam Date: 07/22/2024 22:21 Report Date: 07/22/2024 22:23 At the request of: FREDO POP Procedure: XR chest 1V Plain film chest Single view HISTORY: Syncope. Chest pain COMPARISON: 05/26/2024 FINDINGS: SUPPORT DEVICES: None POSTSURGICAL CHANGES: None HEART: Similar cardiomegaly PULMONARY MATHEUS: Within normal limits MEDIASTINUM: Unremarkable LUNGS AND PLEURA: No acute lung process, pleural effusion or pneumothorax identified. BONY STRUCTURES: Intact ADDITIONAL FINDINGS None XR/XR chest 1V IMPRESSION: No acute process. Impression dictated by: Mio Serra M.D. 07/22/2024 10:23 PM Dictation Location: [employer] Electronically authenticated by: [id number] Y Date: 07/22/2024 22:23
--- NOTE | 2024-07-22 21:52 | ECG_ITS ---
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 Measurements Intervals [place]on Rate: 89 P: 43 NH: 130 QRS: 46 QRSD: 78 T: 24 QT: 350 QTc: 397 Interpretive Statements 1100 Sinus rhythm 4068 Nonspecific Twave abnormality Abnormal ECG Compared to ECG 05/26/2024 15:12:22 No significant changes Electronically Signed On 07-23-2024 9:08:20 EDT by REJI DIAS M.D.
[2024-07-22] MEDS: 0.9 % SODIUM CHLORIDE 1,000 ML 999 ML IV (22:11)
[2024-07-22 22:25] LABS: Basophils Percent Auto 0.4 % (0.2-2.0); Eosinophils Absolute Auto 0.2 10^3/uL (0.0-0.7); Eosinophils Percent Auto 1.5 % (0.9-7.0); Hematocrit 45.2 % (36.0-48.0); Hemoglobin 14.8 g/dL (12.0-16.0); Immature Granulocytes Abs Auto 0.04 10^3/uL (0.00-0.03); Immature Granulocytes Pct Auto 0.4 % (0.0-0.5); Lymphocytes Absolute Auto 1.9 10^3/uL (1.2-3.8); Lymphocytes Percent Auto 18.2 % (20.5-60.0); Mean Corpuscular HGB Conc 32.7 g/dL (29.9-35.2); Mean Corpuscular Hemoglobin 28.4 pg (26.7-34.0); Mean Corpuscular Volume 86.8 fL (81.0-99.0); Mean Platelet Volume 10.3 fL (9.5-13.5); Monocytes Absolute Auto 0.7 10^3/uL (0.3-0.8); Monocytes Percent Auto 6.3 % (1.7-12.0); Neutrophils Absolute Auto 7.7 10^3/uL (1.4-6.5); Neutrophils Percent Auto 73.2 % (43.0-75.0); Platelet Count 347 10^3/uL (150-450); Red Blood Count 5.21 10^6/uL (4.20-5.40); Red Cell Distribution Width 13.4 % (11.0-15.0); White Blood Count 10.5 10^3/uL (4.0-11.0)
[2024-07-22 22:27] LABS: HCG Qualitative NEGATIVE (NEGATIVE); Internal Control Within Normal Limits
[2024-07-22 22:37] LABS: Anion Gap 12.3; BUN Creatinine Ratio 26.8; Calcium 9.3 mg/dL (8.5-10.1); Carbon Dioxide 31.3 mmol/L (21.0-32.0); Chloride 105 mmol/L (98-107); Estimated GFR (African America >60 (>=60 mL/min/1.73m^2); Estimated GFR (Non-African Ame >60 (>=60 mL/min/1.73m^2); Glucose 77 mg/dL (74-106); Magnesium 1.7 mg/dL (1.8-2.4); Potassium 3.6 mmol/L (3.5-5.1); Sodium 145 mmol/L (136-145); Troponin I High Sensitivity 4.1 pg/mL (4.0-51.3)
--- NOTE | 2024-07-22 23:51 | ED.DIZZY1 ---
HPI - Dizziness General Chief Complaint: Syncope Stated Complaint: SYNCOPE Time Seen by Provider: 07/22/24 21:38 Source: patient Mode of arrival: Wheelchair Limitations: no limitations History of Present Illness HPI Narrative: cc - dizziness Patient was working at [employer] when she became very sweaty and lightheaded.? She apparently sat down for a little while after having some soda.? Someone called EMS, who then came and evaluated the patient.? She declined transfer and elected to come by private vehicle.? EMS called us and reported the patient's blood sugar was 140.? On arrival the patient reported feeling very cold despite sweating.? She is currently being evaluated for a broken ankle and wrist.. Negative prior cardiac history.? She has a stress test scheduled for August 03, 2024.? She also told me that she is getting an implanted device to treat her sleep apnea.? She told the emergency department intake nurse that she had been having chest tightness on and off for several months During my interview with the patient, she denied any palpitations but did admit to some tightness intermittently in the mid chest that is nonradiating and is not associated with any shortness of breath, near-syncope or syncope up until tonight . Related Data Home Medications ?Medication ?Instructions ?Recorded ?Confirmed Bifidobacterium infantis 4 mg 4 mg PO DAILY 10/24/23 07/22/24 capsule (Align (B.infantis)) ascorbic acid (vitamin C) 500 mg 500 mg PO BID 10/24/23 07/22/24 tablet (Vitamin C) duloxetine 60 mg capsule,delayed 60 mg PO DAILY 10/24/23 07/22/24 release empagliflozin 25 mg tablet 25 mg PO DAILY 10/24/23 07/22/24 (Jardiance) fluoxetine 60 mg tablet 60 mg PO DAILY 10/24/23 07/22/24 lamotrigine 200 mg tablet 200 mg PO DAILY 10/24/23 07/22/24 lurasidone 120 mg tablet 120 mg PO DAILY 10/24/23 07/22/24 multivitamin with folic acid 400 1 tab PO DAILY 10/24/23 07/22/24 mcg tablet (Daily-Karely (with folic acid)) pioglitazone 30 mg tablet 30 mg PO DAILY 10/24/23 07/22/24 rosuvastatin 10 mg tablet 10 mg PO DAILY 10/24/23 07/22/24 trazodone 50 mg tablet 50 mg PO DAILY 10/24/23 07/22/24 vitamin B complex 1 tab PO Q24H 10/24/23 07/22/24 albuterol sulfate 0.63 mg/3 mL 0.63 mg inhalation TID PRN 11/16/23 07/22/24 solution for nebulization bronchospasm albuterol sulfate 90 mcg/actuation 2 inh inhalation QID PRN shortness 11/16/23 07/22/24 aerosol inhaler (Proventil HFA) of breath or wheezing biotin injectioin .every other week 11/16/23 fluticasone propionate 50 1 spray intranasal DAILY PRN 11/16/23 07/22/24 mcg/actuation nasal allergy symptoms spray,suspension (24 Hour Allergy Relief) invizia 11/16/23 docusate sodium 100 mg capsule 300 mg PO DAILY 01/11/24 07/22/24 linaclotide 290 mcg capsule 290 mcg PO DAILY 01/11/24 07/22/24 (Linzess) cholecalciferol (vitamin D3) 125 125 mcg PO DAILY 03/31/24 07/22/24 mcg (5,000 unit) tablet (Vitamin D3) fexofenadine 180 mg tablet 180 mg PO DAILY 03/31/24 07/22/24 lisdexamfetamine 70 mg capsule 70 mg PO QAM 03/31/24 07/22/24 (Vyvanse) metoprolol succinate 25 mg 25 mg PO DAILY 03/31/24 07/22/24 tablet,extended release 24 hr tirzepatide 2.5 mg/0.5 mL 2.5 mg subcut QWEEK 06/27/24 07/22/24 subcutaneous pen injector (Mounjaro) gabapentin 300 mg capsule See Rx Instructions .Route .COMPLEX 07/22/24 07/22/24 Previous Rx's ?Medication ?Instructions ?Recorded diclofenac sodium 75 mg 75 mg PO BID PRN pain #60 tabs 11/16/23 tablet,delayed release cyclobenzaprine 10 mg tablet See Rx Instructions .Route 03/10/24 .COMPLEX PRN muscle spasm #90 tabs ondansetron 4 mg disintegrating 4 mg PO Q6H PRN nausea and 03/31/24 tablet vomiting #12 tabs Allergies Allergy/AdvReac Type Severity Reaction Status Date / Time cephalexin (From Keflex) Allergy Intermediate Rash Verified 07/22/24 21:42 citalopram (From Celexa) Allergy Intermediate Rash Verified 07/22/24 21:42 metformin Allergy Intermediate Nausea Verified 07/22/24 21:42 [facility] Medical History Heartburn ?R12 - Heartburn (ICD-10) Acid reflux ?K21.9 - Gastro-esophageal reflux disease without esophagitis (ICD-10) ASD (atrial septal defect) ?Q21.10 - Atrial septal defect, unspecified (ICD-10) ADHD ?F90.9 - Attention-deficit hyperactivity disorder, unspecified type (ICD-10) Bipolar affect, depressed ?F31.30 - Bipolar disorder, current episode depressed, mild or moderate severity, unspecified (ICD-10) Anemia ?D64.9 - Anemia, unspecified (ICD-10) Low back pain ?M54.50 - Low back pain, unspecified (ICD-10) Osteoarthritis ?M19.90 - Unspecified osteoarthritis, unspecified site (ICD-10) Carpal tunnel syndrome ?G56.00 - Carpal tunnel syndrome, unspecified upper limb (ICD-10) Obesity ?E66.9 - Obesity, unspecified (ICD-10) Diabetes ?E11.9 - 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s (ICD-10) Sleep apnea ?G47.30 - Sleep apnea, unspecified (ICD-10) Asthma ?J45.909 - Unspecified asthma, uncomplicated (ICD-10) High cholesterol ?E78.00 - Pure hypercholesterolemia, unspecified (ICD-10) Surgical History History of nasal surgery ?Z98.890 - Other specified postprocedural states (ICD-10) History of ankle surgery ?Z98.890 - Other specified postprocedural states (ICD-10) History of tonsillectomy and adenoidectomy ?Z90.89 - Acquired absence of other organs (ICD-10) H/O shoulder surgery ?Z98.890 - Other specified postprocedural states (ICD-10) History of cholecystectomy ?Z90.49 - Acquired absence of other specified parts of digestive tract (ICD-10) Social History Little interest or pleasure in doing things: not at all Feeling down, depressed, or hopeless: not at all Exam Narrative Exam Narrative: Nurses notes and vital signs reviewed and patient is not hypoxic. afebrile General: Well-appearing and in no apparent distress. Skin: Warm, dry, no pallor noted. No rash. Head: Normocephalic, atraumatic. Eye: Pupils are equal, round and EOMI. No scleral icterus. Ears, Nose, Mouth, and Throat: Oral mucosa is moist Cardiovascular: Regular Rate and Rhythm without murmur, gallop or rub. Respiratory: No accessory muscle use or respiratory distress. Lungs are clear to auscultation, no wheezing, rales or rhonchi Musculoskeletal: normal ROM, no calf or popliteal tenderness, no lower extremity edema/swelling -exam limited by the brace on the patient's right foot and ankle and on the patient's right wrist GI: Abdomen is soft, non-distended. Normal bowel sounds. Morbidly obese and therefore masses could not be appreciated. No tenderness to palpation. No rebound, guarding, or rigidity noted. Neurological: A&O x4. No cranial nerve dysfunction observed. No truncal ataxia. Moves all extremities -within the limitation of the splinting of the right wrist and right foot and ankle. Sensation intact. Psychiatric: Cooperative and interactive. Normal mood and affect. Constitutional Vital Signs, click to edit/add: Last Vital Signs Temp 97.4 F L 07/23/24 00:13 Pulse 84 07/23/24 00:13 Resp 16 07/23/24 00:13 BP 136/76 07/23/24 00:13 Pulse Ox 96 07/23/24 00:13 O2 Del Method Room Air 07/22/24 21:42 Course Vital Signs Vital signs: Vital Signs Temperature 97.8 F 07/22/24 21:42 Pulse Rate 98 H 07/22/24 21:42 Respiratory Rate 18 07/22/24 21:42 Blood Pressure 143/92 H 07/22/24 21:42 Pulse Oximetry 96 07/22/24 21:42 Oxygen Delivery Method Room Air 07/22/24 21:42 Temperature 97.4 F L 07/23/24 00:13 Pulse Rate 84 07/23/24 00:13 Respiratory Rate 16 07/23/24 00:13 Blood Pressure 136/76 07/23/24 00:13 Pulse Oximetry 96 07/23/24 00:13 Oxygen Delivery Method Room Air 07/22/24 21:42 MDM - Dizziness MDM Narrative Medical decision making narrative: Patient was placed on security monitor and EKG obtained. Blood drawn and sent for evaluation. Workup was unremarkable including negative and unremarkable EKG Patient was feeling back to normal and was discharged home after being informed of her negative workup and given reassurance. I recommend the patient not go back to work but she told me that I have to go back . I did give her a work excuse Medical Records Attestation: I reviewed the patient's medical records. Lab Data Attestation: I reviewed the patient's lab results. Labs: Lab Results 07/22/24 Range/Units 22:05 WBC 10.5 (4.0-11.0) 10^3/uL RBC 5.21 (4.20-5.40) 10^6/uL Hgb 14.8 (12.0-16.0) g/dL Hct 45.2 (36.0-48.0) % MCV 86.8 (81.0-99.0) fL MCH 28.4 (26.7-34.0) pg MCHC 32.7 (29.9-35.2) g/dL RDW 13.4 (11.0-15.0) % Plt Count 347 (150-450) 10^3/uL MPV 10.3 (9.5-13.5) fL Neut % (Auto) 73.2 (43.0-75.0) % Lymph % (Auto) 18.2 L (20.5-60.0) % [place] % (Auto) 6.3 (1.7-12.0) % Eos % (Auto) 1.5 (0.9-7.0) % Baso % (Auto) 0.4 (0.2-2.0) % Neut # (Auto) 7.7 H (1.4-6.5) 10^3/uL Lymph # (Auto) 1.9 (1.2-3.8) 10^3/uL [place] # (Auto) 0.7 (0.3-0.8) 10^3/uL Eos # (Auto) 0.2 (0.0-0.7) 10^3/uL Baso # (Auto) 0.0 (0.0-0.1) 10^3/uL Abs Immat Gran (auto) 0.04 H (0.00-0.03) 10^3/uL Imm/Tot Granulo (auto) 0.4 (0.0-0.5) % Sodium 145 (136-145) mmol/L Potassium 3.6 (3.5-5.1) mmol/L Chloride 105 (98-107) mmol/L Carbon Dioxide 31.3 (21.0-32.0) mmol/L Anion Gap 12.3 BUN 19.0 H (7.0-18.0) mg/dL Creatinine 0.71 (0.55-1.02) mg/dL Est GFR ( Amer) >60 (>=60 mL/min/1.73m^2) Est GFR (Non-Af Amer) >60 (>=60 mL/min/1.73m^2) BUN/Creatinine Ratio 26.8 Glucose 77 (74-106) mg/dL Calcium 9.3 (8.5-10.1) mg/dL Magnesium 1.7 L (1.8-2.4) mg/dL Troponin I High Sens 4.1 (4.0-51.3) pg/mL Serum HCG, Qual Negative (NEGATIVE) ECG Data Attestation: I personally reviewed and interpreted this ECG as follows: Interpretation: EKG interpretation: Emergency Department physician interpretation. Normal sinus rhythm at 89bpm. Normal axis, normal intervals and nonspecific T wave changes. No ST segment elevation or depression. Discharge Plan Discharge Chief Complaint: Syncope Clinical Impression: Dizziness Patient Disposition: Home, Self-Care Time of Disposition Decision: 00:03 Prescriptions / Home Meds: No Action ascorbic acid (vitamin C) [Vitamin C] 500 mg tablet 500 mg PO BID Align (B.infantis) 4 mg capsule 4 mg PO DAILY duloxetine 60 mg capsule,delayed release(DR/EC) 60 mg PO DAILY Jardiance 25 mg tablet 25 mg PO DAILY fluoxetine 60 mg tablet 60 mg PO DAILY lamotrigine 200 mg tablet 200 mg PO DAILY lurasidone 120 mg tablet 120 mg PO DAILY multivitamin with folic acid [Daily-Karely (with folic acid)] 400 mcg tablet 1 tab PO DAILY pioglitazone 30 mg tablet 30 mg PO DAILY rosuvastatin 10 mg tablet 10 mg PO DAILY trazodone 50 mg tablet 50 mg PO DAILY Rx Instructions: HS vitamin B complex Tablet 1 tab PO Q24H diclofenac sodium 75 mg tablet,delayed release (DR/EC) 75 mg PO BID PRN (Reason: pain) Qty: 60 2RF albuterol sulfate [Proventil HFA] 90 mcg/actuation HFA aerosol inhaler 2 inh inhalation QID PRN (Reason: shortness of breath or wheezing) fluticasone propionate [24 Hour Allergy Relief] 50 mcg/actuation spray,suspension 1 spray intranasal DAILY PRN (Reason: allergy symptoms) Rx Instructions: administer into each nostril albuterol sulfate 0.63 mg/3 mL solution for nebulization 0.63 mg inhalation TID PRN (Reason: bronchospasm) biotin injectioin .every other week invizia cyclobenzaprine 10 mg tablet See Rx Instructions .ROUTE .COMPLEX PRN (Reason: muscle spasm) Qty: 90 2RF Rx Instructions: 10MG PO AM 20MG PO HS cholecalciferol (vitamin D3) [Vitamin D3] 125 mcg (5,000 unit) tablet 125 mcg PO DAILY fexofenadine 180 mg tablet 180 mg PO DAILY lisdexamfetamine [Vyvanse] 70 mg capsule 70 mg PO QAM metoprolol succinate 25 mg tablet extended release 24 hr 25 mg PO DAILY ondansetron 4 mg tablet,disintegrating 4 mg PO Q6H PRN (Reason: nausea and vomiting) Qty: 12 0RF Mounjaro 2.5 mg/0.5 mL pen injector 2.5 mg subcut QWEEK Rx Instructions: for 4 weeks docusate sodium 100 mg capsule 300 mg PO DAILY Linzess 290 mcg capsule 290 mcg PO DAILY gabapentin 300 mg capsule See Rx Instructions .ROUTE .COMPLEX Rx Instructions: 3 300MG CAPSULES TID #180 Print Language: Peruvian Instructions: Dizziness (ED) Referrals: Loreto Mcneal NP [Primary Care Provider] - 1 week Discharge Date/Time: 07/23/24 00:20
[2024-07-23 00:13] VITALS: BP 136/76; PULSE 84; TEMP 36.3; O2SAT 96
== END 2024-07-23 00:20 | disposition home or self-care (01) ==
PROVIDERS: Emergency Provider Emergency Medicine; PCP Nurse Practitioner Family
DX: R42 Dizziness and giddiness (principal); R07.89 Other chest pain; Z90.49 Acquired absence of other specified parts of digestive tract; E66.01 Morbid (severe) obesity due to excess calories; Z68.39 Body mass index [BMI] 39.0-39.9, adult
CPT/HCPCS: 36415; 71045; 80048; 83735; 84484; 84703; 85025; 93005; 99285

== ENCOUNTER 2024-08-08 21:02 | Emergency (ER) | payer OTHER, SELFPAY ==
[2024-08-08 21:08] VITALS: BP 118/91; PULSE 90; TEMP 36.7; O2SAT 98; BMI 39.9
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
--- NOTE | 2024-08-08 21:28 | ED.LOWEXI1 ---
HPI HPI - Extremity Injury (Lower) General Chief Complaint: Extremity Injury, Lower Stated Complaint: LEFT ANKLE PAIN Time Seen by Provider: 08/08/24 21:18 Source: patient Mode of arrival: walk-in History of Present Illness HPI Narrative: patient presents complaining of left ankle pain. States she was riding a motorize wheelchair and kept bumping the foot ankle and now has continued pain. Injured 10 days ago she is followed by Podiatry and states she was advised to come to the ER for an xray of her ankle she also has discomfort in the left humeral SQ area. States her computer video game designer was trying to remove an impant last week. An xray was ordered as an outpatient to check for FB. Now that she is here she is requesting an xray so she does not have to come back for the one her computer video game designer ordered Related Data Home Medications ?Medication ?Instructions ?Recorded ?Confirmed Bifidobacterium infantis 4 mg 4 mg PO DAILY 10/24/23 07/22/24 capsule (Align (B.infantis)) ascorbic acid (vitamin C) 500 mg 500 mg PO BID 10/24/23 07/22/24 tablet (Vitamin C) duloxetine 60 mg capsule,delayed 60 mg PO DAILY 10/24/23 07/22/24 release empagliflozin 25 mg tablet 25 mg PO DAILY 10/24/23 07/22/24 (Jardiance) fluoxetine 60 mg tablet 60 mg PO DAILY 10/24/23 07/22/24 lamotrigine 200 mg tablet 200 mg PO DAILY 10/24/23 07/22/24 lurasidone 120 mg tablet 120 mg PO DAILY 10/24/23 07/22/24 multivitamin with folic acid 400 1 tab PO DAILY 10/24/23 07/22/24 mcg tablet (Daily-Karely (with folic acid)) pioglitazone 30 mg tablet 30 mg PO DAILY 10/24/23 07/22/24 rosuvastatin 10 mg tablet 10 mg PO DAILY 10/24/23 07/22/24 trazodone 50 mg tablet 50 mg PO DAILY 10/24/23 07/22/24 vitamin B complex 1 tab PO Q24H 10/24/23 07/22/24 albuterol sulfate 0.63 mg/3 mL 0.63 mg inhalation TID PRN 11/16/23 07/22/24 solution for nebulization bronchospasm albuterol sulfate 90 mcg/actuation 2 inh inhalation QID PRN shortness 11/16/23 07/22/24 aerosol inhaler (Proventil HFA) of breath or wheezing biotin injectioin .every other week 11/16/23 fluticasone propionate 50 1 spray intranasal DAILY PRN 11/16/23 07/22/24 mcg/actuation nasal allergy symptoms spray,suspension (24 Hour Allergy Relief) invizia 11/16/23 docusate sodium 100 mg capsule 300 mg PO DAILY 01/11/24 07/22/24 linaclotide 290 mcg capsule 290 mcg PO DAILY 01/11/24 07/22/24 (Linzess) cholecalciferol (vitamin D3) 125 125 mcg PO DAILY 03/31/24 07/22/24 mcg (5,000 unit) tablet (Vitamin D3) fexofenadine 180 mg tablet 180 mg PO DAILY 03/31/24 07/22/24 lisdexamfetamine 70 mg capsule 70 mg PO QAM 03/31/24 07/22/24 (Vyvanse) metoprolol succinate 25 mg 25 mg PO DAILY 03/31/24 07/22/24 tablet,extended release 24 hr tirzepatide 2.5 mg/0.5 mL 2.5 mg subcut QWEEK 06/27/24 07/22/24 subcutaneous pen injector (Se) gabapentin 300 mg capsule See Rx Instructions .Route .COMPLEX 07/22/24 07/22/24 Previous Rx's ?Medication ?Instructions ?Recorded diclofenac sodium 75 mg 75 mg PO BID PRN pain #60 tabs 11/16/23 tablet,delayed release cyclobenzaprine 10 mg tablet See Rx Instructions .Route 03/10/24 .COMPLEX PRN muscle spasm #90 tabs ondansetron 4 mg disintegrating 4 mg PO Q6H PRN nausea and 03/31/24 tablet vomiting #12 tabs Allergies Allergy/AdvReac Type Severity Reaction Status Date / Time cephalexin (From Keflex) Allergy Intermediate Rash Verified 08/08/24 21:08 citalopram (From Celexa) Allergy Intermediate Rash Verified 08/08/24 21:08 metformin Allergy Intermediate Nausea Verified 08/08/24 21:08 Opioid HPI Opioid Management Most Recent Pain and Opioid Data: Last Pain Scale 6 08/08/24, 21:08 Ur Phencyclidine Scrn, (NEGATIVE) Negative 10/24/23, 05:14 Review of Systems ROS Status of ROS 10 or more systems reviewed and unremarkable except as noted in history and below [facility] Medical History Heartburn ?R12 - Heartburn (ICD-10) Acid reflux ?K21.9 - Gastro-esophageal reflux disease without esophagitis (ICD-10) ASD (atrial septal defect) ?Q21.10 - Atrial septal defect, unspecified (ICD-10) ADHD ?F90.9 - Attention-deficit hyperactivity disorder, unspecified type (ICD-10) Bipolar affect, depressed ?F31.30 - Bipolar disorder, current episode depressed, mild or moderate severity, unspecified (ICD-10) Anemia ?D64.9 - Anemia, unspecified (ICD-10) Low back pain ?M54.50 - Low back pain, unspecified (ICD-10) Osteoarthritis ?M19.90 - Unspecified osteoarthritis, unspecified site (ICD-10) Carpal tunnel syndrome ?G56.00 - Carpal tunnel syndrome, unspecified upper limb (ICD-10) Obesity ?E66.9 - Obesity, unspecified (ICD-10) Diabetes ?E11.9 - 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s (ICD-10) Sleep apnea ?G47.30 - Sleep apnea, unspecified (ICD-10) Asthma ?J45.909 - Unspecified asthma, uncomplicated (ICD-10) High cholesterol ?E78.00 - Pure hypercholesterolemia, unspecified (ICD-10) Surgical History History of nasal surgery ?Z98.890 - Other specified postprocedural states (ICD-10) History of ankle surgery ?Z98.890 - Other specified postprocedural states (ICD-10) History of tonsillectomy and adenoidectomy ?Z90.89 - Acquired absence of other organs (ICD-10) H/O shoulder surgery ?Z98.890 - Other specified postprocedural states (ICD-10) History of cholecystectomy ?Z90.49 - Acquired absence of other specified parts of digestive tract (ICD-10) Social History Little interest or pleasure in doing things: not at all Feeling down, depressed, or hopeless: not at all Exam Constitutional Vital Signs, click to edit/add: Last Vital Signs Temp 98.0 F 08/08/24 21:08 Pulse 90 08/08/24 21:08 Resp 20 08/08/24 21:08 BP 118/91 08/08/24 21:08 Pulse Ox 98 08/08/24 21:08 O2 Del Method Room Air 08/08/24 21:08 Common normals: no apparent distress, average body habitus, oriented x3, no limitations, healthy appearing, alert and well nourished HENMT Common normals: normocephalic and head/scalp atraumatic Eye Common normals: EOMs intact bilaterally and conjunctivae normal Respiratory Common normals: normal respiratory effort, no retractions and no use of accessory muscles Cardio Common normals: regular rate, regular rhythm, S1 normal heart sound and S2 normal heart sound Extremity Other: mild swelling left medial malleolus. no discoloration exam left humerus unremarkable Neuro Common normals: oriented x3 and CN's II-XII intact bilaterally Psych Appearance: grossly normal Course Vital Signs Vital signs: Vital Signs Temperature 98.0 F 08/08/24 21:08 Pulse Rate 90 08/08/24 21:08 Respiratory Rate 20 08/08/24 21:08 Blood Pressure 118/91 08/08/24 21:08 Pulse Oximetry 98 08/08/24 21:08 Oxygen Delivery Method Room Air 08/08/24 21:08 Temperature 98.0 F 08/08/24 21:08 Pulse Rate 90 08/08/24 21:08 Respiratory Rate 20 08/08/24 21:08 Blood Pressure 118/91 08/08/24 21:08 Pulse Oximetry 98 08/08/24 21:08 Oxygen Delivery Method Room Air 08/08/24 21:08 MDM - Extremity Injury (Lower) MDM Narrative Medical decision making narrative: patient presents complaining of continued ankle pain after injury 10days ago. No obvious deformity. Past surgery per podiatry. She was also concerned about possible FB left FA. both xrays per my review neg. Patient informed of the above and discharged to follow up with her formula room worker Discharge Plan Discharge Chief Complaint: Extremity Injury, Lower Clinical Impression: Acute left ankle pain Patient Disposition: Home, Self-Care Prescriptions / Home Meds: No Action ascorbic acid (vitamin C) [Vitamin C] 500 mg tablet 500 mg PO BID Align (B.infantis) 4 mg capsule 4 mg PO DAILY duloxetine 60 mg capsule,delayed release(DR/EC) 60 mg PO DAILY Jardiance 25 mg tablet 25 mg PO DAILY fluoxetine 60 mg tablet 60 mg PO DAILY lamotrigine 200 mg tablet 200 mg PO DAILY lurasidone 120 mg tablet 120 mg PO DAILY multivitamin with folic acid [Daily-Karely (with folic acid)] 400 mcg tablet 1 tab PO DAILY pioglitazone 30 mg tablet 30 mg PO DAILY rosuvastatin 10 mg tablet 10 mg PO DAILY trazodone 50 mg tablet 50 mg PO DAILY Rx Instructions: HS vitamin B complex Tablet 1 tab PO Q24H diclofenac sodium 75 mg tablet,delayed release (DR/EC) 75 mg PO BID PRN (Reason: pain) Qty: 60 2RF albuterol sulfate [Proventil HFA] 90 mcg/actuation HFA aerosol inhaler 2 inh inhalation QID PRN (Reason: shortness of breath or wheezing) fluticasone propionate [24 Hour Allergy Relief] 50 mcg/actuation spray,suspension 1 spray intranasal DAILY PRN (Reason: allergy symptoms) Rx Instructions: administer into each nostril albuterol sulfate 0.63 mg/3 mL solution for nebulization 0.63 mg inhalation TID PRN (Reason: bronchospasm) biotin injectioin .every other week invizia cyclobenzaprine 10 mg tablet See Rx Instructions .ROUTE .COMPLEX PRN (Reason: muscle spasm) Qty: 90 2RF Rx Instructions: 10MG PO AM 20MG PO HS cholecalciferol (vitamin D3) [Vitamin D3] 125 mcg (5,000 unit) tablet 125 mcg PO DAILY fexofenadine 180 mg tablet 180 mg PO DAILY lisdexamfetamine [Vyvanse] 70 mg capsule 70 mg PO QAM metoprolol succinate 25 mg tablet extended release 24 hr 25 mg PO DAILY ondansetron 4 mg tablet,disintegrating 4 mg PO Q6H PRN (Reason: nausea and vomiting) Qty: 12 0RF Mounjaro 2.5 mg/0.5 mL pen injector 2.5 mg subcut QWEEK Rx Instructions: for 4 weeks docusate sodium 100 mg capsule 300 mg PO DAILY Linzess 290 mcg capsule 290 mcg PO DAILY gabapentin 300 mg capsule See Rx Instructions .ROUTE .COMPLEX Rx Instructions: 3 300MG CAPSULES TID #180 Print Language: Indonesian Instructions: Arthralgia (ED) Additional Instructions: follow up with your formula room worker this week Referrals: Loreto Mcneal NP [Primary Care Provider] - 1 week Discharge Date/Time: 08/09/24 00:11
--- OUTSIDE RECORDS SUMMARY | 2024-08-08 21:28 | XMS_ITS | CCD ---
Author Organization [facility] Care Team Providers Care Program Director Scouting Name Role Phone Juan Ramon Jean Unavailable [...] Care Provider MD Yo Blank Attending Provider [phone] DO Shawna Dudley Primary Care Provider RUMSCHLAG, SHAWNA K Referring Unavailable RUMSCHLAG, SHAWNA K Primary Care Unavailable RUMSCHLAG, SHAWNA K Referring Unavailable RUMSCHLAG, SHAWNA K Primary Care Unavailable FORTINO ROBLEDO Attending Unavailable JORGE, LISA Referring Unavailable RUMSCHLAG, SHAWNA K Primary Care Unavailable ADAM MASSEY Attending Unavail able RUMSCHLAG, SHAWNA K Referring Unavailable SERVICES, [facility] Primary Care Unava ilable Fredis SAIL LAY OUT WORKER - MANDARIN TEACHER, Loreto Primary Care Prov ider SERVICES, [facility] Primary Care Unava ilable SHAMMO, RORY Referring Unavailable RUMSCHLAG, SHAWNA K Primary Care Unavailable SHAMMO, RORY Referring Unavailable RUMSCHLAG, SHAWNA K Primary Care Unavailable ZAC HANNA Attending Unavailable HANNAZAC E Referring Unavailable RUMSCHLAG, SHAWNA K Primary Care Unavailable ZAC HANNA Admitting Unavailable HANNAZAC Attending Unavailable RUMSCHLAG, SHAWNA K Referring Unavailable RUMSCHLAG, SHAWNA K Primary Care Unavailable JORGE, LISA Referring Unavailable SERVICES, [facility] Care Unava ilable GAURAV SELLERS Attending Unavailable RUMSCHLAG, SHAWNA K Referring Unavailable RUMSCHLAG, SHAWNA K Primary Care Unavailable Zully MANDARIN TEACHER, Key Unavailable Rumschlag DO, Shawna Primary Care Provider Shammo CAGE MAKER MACHINE-BC, Rory T Primary Care Provider Mio Marroquin DO Attending Provider Unavailab Laila Jerome DO Unavailable Shammo CAGE MAKER MACHINE-BC, Rory T Primary Care Provider Mio Marroquin DO Attending Provider Unavailab carter Bourgeois MD, Andrius Stoddard Attending Unavailable Camiraitis , Andrius Vytautas Attending Unavailable Giedraitis , Andrius Vytautas Attending Unavailable Giedraitis , Andrius Vytautas Attending Unavailable Giedraitis , Andrius Vytautas Attending Unavailable RUMSCHLAG, SHAWNA Referring Unavailable RUMSCHLAG, SHAWNA Primary Care Unavailable RUMSCHLAG, SHAWNA Primary Care Unavailable RUMSCHLAG, SHAWNA Referring Unavailable RUMSCHLAG, SHAWNA Referring Unavailable RUMSCHLAG, SHAWNA Primary Care Unavailable LORETO MCNEAL Primary Care Unavailable RUMSCHLAG, SHAWNA Referring Unavailable RUMSCHLAG, SHAWNA Referring Unavailable RUMSCHLAG, SHAWNA Primary Care Unavailable RUMSCHLAG, SHAWNA Primary Care Unavailable NAVEEN SANCHEZ Attending Unavailable MYERHOLTZ, LORETO Primary Care Unavailable RUMSCHLAG, SHAWNA Referring Unavailable RUMSCHLAG, SHAWNA Referring Unavailable RUMSCHLAG, SHAWNA Primary Care Unavailable RUMSCHLAG, SHAWNA Primary Care Unavailable RUMSCHLAG, SHAWNA Referring Unavailable MYERHOLTZ, LORETO Primary Care Unavailable RUMSCHLAG, SHAWNA Referring Unavailable RUMSCHLAG, SHAWNA Primary Care Unavailable RUMSCHLAG, SHAWNA Referring Unavailable RUMSCHLAG, SHAWNA Referring Unavailable RUMSCHLAG, SHAWNA Primary Care Unavailable MYERHOLTZ, LORETO Primary Care Unavailable RUMSCHLAG, SHAWNA Referring Unavailable MYERHOLTZ, LORETO Primary Care Unavailable RUMSCHLAG, SHAWNA Referring Unavailable LISETTE JUNIOR Attending Unavailable MYERHOLTZ, LORETO Primary Care Unavailable RUMSCHLAG, SHAWNA Primary Care Unavailable NAVEEN SANCHEZ Attending Unavailable MYERHOLTZ, LORETO Primary Care Unavailable RUMSCHLAG, SHAWNA Primary Care Unavailable RUMSCHLAG, SHAWNA Referring Unavailable Mendez Cardoso DO Attending Provider [phone] Myerholtz SAIL LAY OUT WORKER, Loreto K Primary Care Provide r Mio Marroquin Admitting Unavailable Mio Marroquin Attending Unavailable Rory Driver Primary Care Unavailable Mendez Cardoso Admitting Unavailable Mendez Cardoso Attending Unavailable Myerholtz, Loreto K Primary Care Unavailab CLEO Anderson Attending Unavailable CLEO ZAMBRANO Referring Unavailable ROEL GARBER Attending Unavailable MENDEZ CARDOSO Attending Unavailable LAILA SANTOS Attending Unavailable ROEL GARBER Attending Unavailable MENDEZ CARDOSO Attending Unavailable ROEL GARBER Attending Unavailable ROEL GARBER Attending Unavailable CLEO ZAMBRANO Attending Unavailable LAILA SANTOS Attending Unavailable BRITTANY NEVILLE Attending Unavailable KENZIE VASQUEZ Attending Unavailable KENZIE VASQUEZ Referring Unavailable Allergies Allergy Classification Reported Allergen(s) Allergy Type Date of Onset Reaction(s) Facility Cephalosporins (antibiotic) (2 sources) Cephalexin Drug Allergy 09-14-19 17 Hives [facility] Serotonin Reuptake Inhibitors (SSRIs) (2 sources) Citalopram Drug Allergy 09-14-19 17 [facility] (20 sources) cephalexin; Translations: [Keflex] Drug Allergy 07-08-19 13 [facility] Repository (4 sources) citalopram; Translations: [CeleXA] Drug Allergy 07-08-19 13 AOF, heart palpitation [facility] Repository (20 sources) Cephalexin; Translations: [CEPHALEXIN] Drug Allergy 07-15-19 14 Hives [facility] Work Phone: (20 sources) Citalopram; Translations: [CITALOPRAM] Drug Allergy 07-15-19 14 Hives, anaphylaxis [facility] (5 sources) metFORMIN Drug Allergy Unknown [facility] Other (20 sources) metFORMIN; Translations: [METFORMIN] Drug Allergy 04-15-19 23 Unknown, Unknown Reaction, hypoglycemia [facility] Repository Comment on above: bottoms out to unde r 40 (20 sources) Metformin And Related Propensity to adverse reactions to drug 04-20-19 24 Other (See Comments) [facility] (20 sources) POISON DEVORAH EXTRACT; Translations: [POISON DEVORAH EXTRACT] Propensity to adverse reactions to drug (disorder) 04-15-19 23 [facility] Repository (1 source) Cephalexin Drug Allergy 07-28-19 25 [facility] Repository (1 source) Citalopram Drug Allergy 07-28-19 25 [facility] Repository (1 source) metFORMIN Drug Allergy 07-28-19 25 [facility] Repository (1 source) BIGUANIDES; Translations: [BIGUANIDES] Propensity to adverse reactions to drug (disorder) 04-15-19 [facility] Repository Medications Current Medications Medication Drug Class(es) Dates Sig (Normalized) Sig (Original) [id number] 200 actuat albuterol 0.09 mg/actuat metered dose [...] for Wheezing Active Albuterol PRN Ac tive Albuterol 90 mcg/actuation aerosol (2 sources) Start: 07-27-2024 take 90 ug by inhalation every four hours as needed for wheezing Albuterol 90 mcg/actuation aerosol Active 90 MCG INHALATION Every 4 hours as needed for wheezing July 27, 2024 12:00am Ros Allergy 180 MG (6 sources) take [...] B Complex Vitamins (vitamin B complex) tablet (17 sources) Start: 04-20-2024 take 1 tablet by mouth once daily B Complex Vitamins (vitamin B complex) tablet Take 1 tablet by mouth Daily 04/20/2024 Active bifidobacterium animalis [id number] unt / lactobacillus acidophilus [id number] unt oral capsule (6 sources) take 1 capsule by mouth once daily probiotic (ALIGN/RISAQUAD) CAPS capsule Take 1 capsule by mouth daily ALIGN Active cetirizine hydrochloride 10 mg oral tablet (9 sources) Histamine-1 Receptor Antagonist take 1 tablet by mouth once daily ZyrTEC Allergy 10 MG 1 tablet Orally Once a day Active cholecalciferol 0.125 mg oral tablet (20 sources) Vitamin D Start: 07-27-2024 take 1 tablet by mouth once daily in the morning Cholecalciferol (Vitamin D3) (Vitamin D3) 125 mcg (5,000 unit) tablet Active 125 MCG PO Every morning July 27, 2024 12:00am Start: 02-24-2023 End: 07-27-2024 take 1 capsule by mouth once daily Cholecalciferol (Vitamin D3) 50 mcg (2,000 unit) capsule Discontinued 2000 UNIT PO Daily May 21, 2023 12:00am July 27, 2024 11:26am Start: 02-24-2023 take 1 capsule by mo uth in the morning cholecalciferol (Vitamin D-3) 50 MCG (2000 UT) capsule Take 2,000 Units by mouth in the morning. 02/24/2023 Active take 1 capsule by mo uth every twenty-four hours Vitamin D3 50 MCG (2000 UT) 1 capsule Orally Once a day Not-Taking/PRN ciclopirox 7.7 mg/ml topical cream (20 sources) Start: 07-27-2024 Ciclopirox 0.7 7 % cream Active 1 APPLIC TOPICAL Daily as needed for yeasty rash July 27, 2024 12:00am Start: 04-21-2024 ciclopirox (Lo prox) 0.77 % cream Indications: Rash and other nonspecific skin eruption APPLY TO THE AFFECTED AREA(S) TWICE DAILY 90 g 04/21/2024 Active Start: 03-17-2024 ciclopirox (Lo prox) 0.77 % cream Indications: Rash and other nonspecific skin eruption APPLY TO THE AFFECTED AREA(S) TWICE DAILY 90 g 03/17/2024 Active clindamycin 300 mg oral capsule (8 sources) Lincosamide Antibacterial Start: 08-02-2024 End: 08-09-2024 take 1 capsule by mouth in the morning, then take 1 capsule by mouth in the evening, then take 1 capsule by mouth at bedtime clindamycin (Cleocin) 300 MG capsule Indications: Itching with irritation , Nexplanon removal Take 1 capsule (300 mg) by mouth in the morning and 1 capsule (300 mg) in the evening and 1 capsule (300 mg) before bedtime. Do all this for 7 days. 21 capsule 08/02/2024 08/09/2024 Active Start: 10-12-2021 End: 10-22-2021 clindamycin (CLEOCIN) 150 MG capsule Take 3 capsules by mouth in the morning and 3 capsules at noon and 3 capsules before bedtime. Do all this for 10 days. 90 capsule 0 10/12/2021 10/22/2021 Active Start: 10-12-2021 End: 10-12-2021 clindamycin (CLEOCIN) capsul e 450 mg cyclobenzaprine hydrochloride 10 mg oral tablet (20 sources) Muscle Relaxant Start: 11-16-2023 Cyclobenzaprin e 10 mg tablet Active 10 MG PO Twice daily July 27, 2024 12:00am 1 tab in morning and 2 tab at night Start: 11-16-2023 cyclobenzaprin e (Flexeril) 10 MG tablet Take 10 mg by mouth as needed in the morning and 10 mg as needed at noon and 10 mg as needed in the evening for muscle spasms. 11/16/2023 Active Cyclobenzaprine HCl (FLEXERIL PO) Take by mouth in the morning and at bedtime Take 2 at night and 1 every morning Active Diclofenac (20 sources) Nonsteroidal Anti-inflammatory Drug Start: 07-27-2024 Diclofenac Sodium (Arthritis Pain (Diclofenac)) 1 % gel Active 2 GM TOPICAL Twice daily July 27, 2024 12:00am Start: 11-16-2023 take 1 tablet by elan th twice daily Diclofenac Sodium 75 mg tablet,delayed release (DR/EC) Active 75 MG PO Twice daily July 27, 2024 12:00am Diclofenac Sodiu m (VOLTAREN PO) Take by mouth in the morning and at bedtime One every morning and two every night Active docusate sodium 100 mg oral capsule (20 sources) Start: 04-29-2023 End: 08-08-2024 take 1 capsule by mouth three times daily Docusate Sodium 100 mg capsule Active 100 MG PO Three times daily August 08, 2024 1:54pm Start: 01-07-2023 take 3 capsules by m [...] by mouth once daily in the morning Duloxetine 60 mg capsule,delayed release(DR/EC) Active 60 MG PO Every morning October 15, 2023 12:00am Start: 05-21-2023 take 30 mg by mouth once daily Duloxetine Active 30 MG PO Daily May 21, 2023 12:00am take 2 capsules by m outh in the morning DULoxetine (Cymbalta) [address] capsule Take 60 mg by mouth in the morning and 60 mg before bedtime. Do not crush or chew. Active take 1 capsule by mo uth in the morning DULoxetine (Cymbalta) [address] capsule Take 30 mg by mouth in the morning and 30 mg before bedtime. Do not crush or chew.. Active empagliflozin 25 mg oral tablet (20 sources) Sodium-Glucose Cotransporter 2 Inhibitor Start: 05-20-2023 End: 11-02-2024 take 1 tablet by mouth once daily in the morning Empagliflozin (Jardiance) 25 mg tablet Active 25 MG PO Every morning May 20, 2023 12:00am etonogestrel 68 mg drug implant (20 sources) Progestin Start: 10-14-2018 Nexplanon 68 mg subcutaneous implant Refills(s) 0 Start Date: 10/14/18 Status: Ordered inject 68 mg by subc utaneous injection once etonogestrel-eluting (Nexplanon) 68 mg contraceptive implant Inject 68 mg under the skin 1 (one) time Active famotidine 40 mg oral tablet (20 sources) Histamine-2 Receptor Antagonist Start: 08-08-2024 take 1 tablet by mouth twice daily Famotidine 40 mg tablet Active 40 MG PO Twice daily August 08, 2024 12:00am Start: 05-20-2023 End: 07-27-2024 take 1 tablet by mouth once daily Famotidine 40 mg tablet Discontinued 40 MG PO Daily 30 June 02, 2024 9:59am July 27, 2024 11:11am Start: 10-14-2018 take 1 tablet by elan th twice daily Pepcid 20 mg Tab 20 mg = 1 tab(s), Oral, BID, # 60 tab(s), Refills(s) 0 Start Date: 10/14/18 Status: Ordered take 2 tablets by [facility] once daily famotidine (PEPCID) 20 MG tablet Take 2 tablets by mouth daily Active ferrous sulfate 140 mg extended release oral tablet (20 sources) Start: 07-27-2024 take 1 tablet by mouth once daily Ferrous Sulfate (Slow Release Iron) 140 mg (45 mg iron) tablet extended release Active 140 MG PO Daily July 27, 2024 12:00am take 1 tablet by mouth at mealt[place] me ferrous sulfate 325 (65 Fe) MG tablet Take 325 mg by mouth in the morning. Take with meals. Active fexofenadine hydrochloride 180 mg oral tablet (20 sources) Histamine-1 Receptor Antagonist Start: 02-24-2023 take 1 tablet by mouth once daily at bedtime Fexofenadine 180 mg tablet Active 180 MG PO Daily at bedtime May 21, 2023 12:00am fluconazole 150 mg oral tablet (2 sources) Azole Antifungal Start: 07-27-2024 take 1 tablet by mouth once as needed Fluconazole 150 mg tablet Active 150 MG PO Once as needed for yeast infection July 27, 2024 12:00am FLUoxetine 60 mg oral tablet (20 sources) Serotonin Reuptake Inhibitor Start: 10-15-2023 take 1 tablet by mouth once daily in the morning Fluoxetine 60 mg tablet Active 60 MG PO Every morning October 15, 2023 12:00am Start: 05-20-2023 End: 10-15-2023 take 1 capsule by mouth once daily Fluoxetine 40 mg capsule Discontinued 40 MG PO Daily May 20, 2023 12:00am October 15, 2023 9:28am Start: 01-19-2020 take 1 capsule by [facility] once daily FLUoxetine 40 mg Cap 40 mg = 1 cap(s), Oral, Daily, # 30 cap(s), Refills(s) 5, Pharmacy: [id number], 157, cm, 10/13/19 10:52:00 EDT, Height/Length Dosing, 100.7, kg, 10/13/19 10:52:00 EDT, Weight Dosing Start Date: 01/19/20 Status: Ordered take 3 capsules by [facility] once daily FLUoxetine (PROZAC) 20 MG capsule Take 3 capsules by mouth daily Active fluticasone propionate 0.05 mg/actuat metered dose nasal spray (20 sources) Corticosteroid Start: 07-27-2024 take 1 spray(s) nasal route once daily as needed Fluticasone Propionate 50 mcg/actuation spray,suspension Active 2 SPRAY INTRANASAL Daily as needed for allergy symptoms July 27, 2024 12:00am administer into each nostril take 1 spray(s) nasal route once daily fluticasone (Flonase) 50 MCG/ACT nasal spray Administer 1 spray into each nostril 1 (one) time each day at the same time Active Flonase PRN Acti ve gabapentin 300 mg oral capsule (20 sources) Anti-epileptic Agent Start: 07-27-2024 take 3 capsules by mouth twice daily Gabapentin 300 mg capsule Active 900 MG PO Twice daily July 27, 2024 12:00am Start: 03-31-2024 gabapentin (Ne urontin) 300 MG capsule Indications: Paresthesias 1 po 2-3 times a day. 90 capsule 2 03/31/2024 Active Start: 08-13-2023 gabapentin (Ne urontin) 300 MG capsule Indications: Paresthesias 1 po 2-3 times a day. 90 capsule 2 08/13/2023 Active Start: 05-21-2023 End: 07-27-2024 take 3 capsules by mouth twice daily Gabapentin 100 mg capsule Discontinued 300 MG PO Twice daily May 21, 2023 10:21am July 27, 2024 11:13am Start: 05-21-2023 take 300 mg by mouth [...] / neomycin 3.5 mg/ml / polymyxin b [id number] unt/ml otic solution (1 source) Aminoglycoside Antibacterial, Polymyxin-class Antibacterial, Corticosteroid Start: 10-22-2021 End: 10-29-2021 [id number]-[id number] isone (CORTISPORIN) [id number] 4 drops into the left ear 3 times daily for 7 days Instill into left Ear TID x 7 days 10 mL 0 10/22/2021 10/29/2021 Active hydrOXYzine hydrochloride 25 mg oral tablet (18 sources) Antihistamine Start: 10-21-2017 take 1 tablet [...] tablet by mouth once daily in the morning Lamotrigine 200 mg tablet Active 200 MG PO Every morning May 20, 2023 12:00am lidocaine 0.05 mg/mg medicated patch (2 sources) Antiarrhythmic, Amide Local Anesthetic Start: 07-27-2024 apply 1 dose topically once daily as needed for pain Lidocaine 5 % adhesive patch,medicated Active 1 PATCH TOPICAL Daily as needed for pain July 27, 2024 12:00am linaclotide 0.29 mg oral capsule (20 sources) Guanylate Cyclase-C Agonist Start: 05-21-2023 End: 08-08-2024 take 1 capsule by mouth once daily in the morning Linaclotide (Linzess) 290 mcg capsule Active 290 MCG PO Every morning August 08, 2024 1:55pm lisdexamfetamine dimesylate 70 mg oral capsule (20 sources) Central Nervous System Stimulant Start: 02-27-2023 take 1 capsule by mouth once daily in the morning Lisdexamfetamine 70 mg capsule Active 70 MG PO Every morning May 20, 2023 12:00am lurasidone hydrochloride 120 mg oral tablet (20 sources) Atypical Antipsychotic Start: 10-15-2023 take 1 tablet by mouth once daily in the morning Lurasidone 120 mg tablet Active 120 MG PO Every morning October 15, 2023 12:00am Start: 05-20-2023 End: [...] food, # 30 tab(s), Refills(s) 5, Pharmacy: [id number], 157, cm, 10/13/19 10:52:00 EDT, Height/Length Dosing, 100.7, kg, 10/13/19 10:52:00 EDT, Weight Dosing Start Date: 01/19/20 Status: Ordered lurasidone (Latu da) 120 MG tablet Take 80 mg by mouth Daily Take with food. Active 10 ml methocarbamol 100 mg/ml injection (19 sources) Muscle Relaxant Start: 10-14-2018 Robaxin 100 mg /mL inj Refills(s) 0 Start Date: 10/14/18 Status: Ordered take 1 tablet by elan th three times daily methocarbamol (ROBAXIN) 500 MG tablet Ta ke 1 tablet by mouth 3 times daily Active 24 hr metoprolol succinate 25 mg extended release oral tablet (20 sources) beta-Adrenergic Theodore Start: 07-27-2024 take 1 tablet by mouth once daily in the morning Metoprolol Succinate 25 mg tablet extended release 24 hr Active 25 MG PO Every morning July 27, 2024 12:00am Start: 03-21-2024 metoprolol suc cinate XL (Toprol-XL) 25 MG 24 hr tablet 03/21/2024 Active Start: 03-21-2024 take 0.5 tablet by m outh once daily metoprolol succinate XL (Toprol-XL) 25 [...] Refills(s) 0 Start Date: 10/14/18 Status: Ordered Mounjaro 2.5 MG/0.5ML solution auto-injector (10 sources) Start: 06-01-2024 End: 08-04-2024 Mounjaro 2.5 MG/0.5ML solution auto-injector INJECT 2.5 MG SUBCUTANEOUSLY (UNDER THE SKIN) EVERY 7 DAYS 06/01/2024 08/04/2024 Discontinued (Dose adjustment) Start: 06-01-2024 Mounjaro 2.5 M G/0.5ML solution auto-injector INJECT 2.5 MG SUBCUTANEOUSLY (UNDER THE SKIN) EVERY 7 DAYS 06/01/2024 Active Multiple Vitamin (Tab-A-Karely) tablet (20 sources) Start: 12-26-2022 take 1 tablet by mouth once daily Multiple Vitamin (Tab-A-Karely) tablet Take 1 tablet by mouth Daily 12/26/2022 Active Start: 12-26-2022 take 1 tablet by elan th in the morning Multiple Vitamin (Tab-A-Karely) tablet Take 1 tablet by mouth in the morning. 12/26/2022 Active Multivitamin preparation (20 sources) Multivitamin Act amaury Multivitamin With Folic Acid (Daily-Karely (With Folic Acid)) 400 mcg tablet (5 sources) Start: 05-20-2023 take 1 tablet by mouth once daily in the morning Multivitamin With Folic Acid (Daily-Karely (With Folic Acid)) 400 mcg tablet Active 1 TAB PO Every morning May 20, 2023 12:00am Start: 05-20-2023 Multivitamin W ith Folic Acid (Daily-Karely (With Folic Acid)) 400 mcg tablet Active TAB PO May 19, 2023 11:00pm Start: 05-20-2023 Multivitamin W ith Folic Acid (Daily-Karely (With Folic Acid)) 400 mcg tablet Active TAB PO May 20, 2023 12:00am mupirocin 0.02 mg/mg topical ointment (20 sources) RNA Synthetase Inhibitor Antibacterial Start: 07-27-2024 Mupirocin 2 % ointment Active 1 APPLIC TOPICAL Daily as needed for rash July 27, 2024 12:00am Start: 03-16-2023 End: 03-03-2024 mupirocin (Bactroban) 2 % oi ntment Indications: Chronic rhinitis apply to left nose [...] mouth as needed for Pain Active nystatin [id number] unt/ml topical cream (17 sources) Polyene Antifungal Start: 01-20-2023 nystatin (Mycostatin) cream Apply topically if needed 01/20/2023 Active omeprazole 20 mg delayed release oral capsule (14 sources) Proton Pump Inhibitor take 2 capsules by mouth once daily omeprazole (PRILOSEC) 20 MG delayed release capsule Take 40 mg by mouth daily Active pantoprazole 20 mg delayed release oral tablet (20 sources) Proton Pump Inhibitor Start: 08-08-2024 take 1 tablet by mouth twice daily Pantoprazole 20 mg tablet,delayed release (DR/EC) Active 20 MG PO Twice daily 60 30 August 08, 2024 12:00am Start: 07-27-2024 take 1 tablet by elan th once daily in the morning Pantoprazole 20 mg tablet,delayed release (DR/EC) Active 20 MG PO Every morning July 27, 2024 12:00am Start: 06-14-2024 End: 07-27-2024 take 1 tablet by mouth twice daily Pantoprazole 20 mg tablet,delayed release (DR/EC) Discontinued 20 MG PO Twice daily 60 30 June 14, 2024 12:00am July 27, 2024 11:36am take 1 tablet by elan th before mealtime pantoprazole (ProtoNix) 40 MG EC tablet Take 40 mg by mouth in the morning. Take before meals. Do not crush, chew, or split. Active pioglitazone 30 mg oral tablet (20 sources) Peroxisome Proliferator Receptor alpha Agonist, Peroxisome Proliferator Receptor gamma Agonist, Thiazolidinedione Start: 08-04-2024 take 1 tablet by mouth once daily pioglitazone (Actos) 30 MG tablet Indications: 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, 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 Take 1 tablet (30 mg) by mouth Daily 30 tablet 3 08/04/2024 Active Start: 08-04-2024 take 1 tablet by elan th once daily pioglitazone (Actos) 30 MG tablet Indications: 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, 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 Take 1 tablet (30 mg) by mouth Daily 30 tablet 3 08/04/2024 Active Start: 05-20-2023 End: 08-04-2024 take 1 tablet by mouth once daily at bedtime Pioglitazone 30 mg tablet Active 30 MG PO Daily at bedtime May 20, 2023 12:00am plecanatide 3 mg oral tablet (1 source) Start: 02-05-2023 take 1 tablet by mouth every twenty-four hours Trulance 3 MG 1 tablet Orally Once a day for 30 days Jan, Active polyethylene glycol 3350 [id number] mg / potassium chloride 2970 mg / sodium bicarbonate 6740 mg / sodium chloride 5860 mg / sodium sulfate 54898 mg powder for oral solution (2 sources) Osmotic Laxative Start: 03-17-2023 Golytely 236 GM 236 ml Orally 8 ounces every 15 minutes for 1 days PLEASE CHECK ALLERGIES Mar, Active prasterone (DHEA) (2 sources) Start: 07-27-2024 take 1 tablet by mouth once daily in the morning prasterone (DHEA) Active 1 TAB PO Every morning July 27, 2024 12:00am predniSONE 10 mg oral tablet (10 sources) [...] Nausea, # 20 tab(s), Refills(s) 0, Pharmacy: [id number], 157, cm, 03/10/19 12:21:00 EST, Height/Length Measured, 100.7, kg, 03/10/19 12:21:00 EST, Weight Measured Start Date: 06/13/19 Status: Ordered rizatriptan 10 mg oral tablet (20 sources) Serotonin-1b and Serotonin-1d Receptor Agonist Start: 06-02-2022 Rizatriptan (Maxalt) 10 mg tablet Active 10 MG PO . NEEDED as needed for migraine headache May 20, 2023 12:00am rosuvastatin calcium 10 mg oral tablet (20 sources) HMG-CoA Reductase Inhibitor Start: 05-20-2023 take 1 tablet by mouth once daily at bedtime Rosuvastatin 10 mg tablet Active 10 MG PO Daily at bedtime May 20, 2023 12:00am Start: 05-20-2023 take 1 tablet by elan th once daily Rosuvastatin 10 mg tablet Active 10 MG PO Daily May 20, 2023 12:00am take 1 tablet by elan th once daily rosuvastatin (CRESTOR) 20 MG tablet Take 1 tablet by mouth daily Active Rosuvastatin Leonardo cium Active SUMAtriptan 100 mg oral tablet (20 sources) Serotonin-1b and Serotonin-1d Receptor Agonist Start: 06-20-2024 take 1 tablet by mouth once daily as needed SUMAtriptan (Imitrex) 100 MG tablet Indications: Migraine with aura and without status migrainosus, not intractable (CMS/HCC) TAKE 1 TABLET BY MOUTH DAILY NEEDED FOR MIGRAINE 9 tablet 1 06/20/2024 Active Start: 02-22-2024 take 1 tablet by elan th once daily as needed SUMAtriptan (Imitrex) 100 [...] by elan th twice daily as needed for headache Sumatriptan Succinate 100 mg tablet Active 100 MG PO Twice daily as needed for migraine headache May 20, 2023 12:00am take 1 tablet [...] 01/08/2024 Active temazepam 15 mg oral capsule (18 sources) Benzodiazepine take 1 capsule by mouth once daily as needed for sleep temazepam (RESTORIL) 15 MG capsule Take 15 mg by mouth nightly as needed for Sleep Active terbinafine 250 mg oral tablet (12 sources) Allylamine Antifungal Start: 01-21-2024 take 1 tablet by mouth once daily terbinafine (LamISIL) 250 MG tablet Take 250 mg by mouth Daily 01/21/2024 Active 5000 mg testosterone 0.01 mg/mg topical gel (2 sources) Androgen Start: 07-27-2024 Testosterone 50 mg/5 gram (1 %) gel Active 50 MG TRANSDERML Daily July 27, 2024 12:00am Tirzepatide (2 sources) Start: 07-27-2024 Tirzepatide (Mounjaro) 2.5 mg/0.5 mL pen injector Active 2.5 MG SUBCUT Once a week July 27, 2024 12:00am Tirzepatide (Mounjaro) 2.5 MG/0.5ML solution auto-injector (10 sources) Start: 04-11-2024 End: 05-11-2024 Tirzepatide (Mounjaro) 2.5 MG/0.5ML solution auto-injector Indications: 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, 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 (CMS/HCC) Inject 2.5 mg under the skin every 7 (seven) days 2 mL 3 04/11/2024 05/11/2024 Active Start: 04-07-2024 End: 05-07-2024 Tirzepatide (Mounjaro) 2.5 M G/0.5ML solution auto-injector Indications: 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, 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 (CMS/HCC) Inject 2.5 mg under the skin every 7 (seven) days 2 mL 3 04/07/2024 05/07/2024 Active Tirzepatide (Mounjaro) 5 MG/0.5ML solution auto-injector (2 sources) Start: 08-04-2024 End: 11-02-2024 Tirzepatide (Mounjaro) 5 MG/0.5ML solution auto-injector Indications: 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, 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 Inject 5 mg under the skin every 7 (seven) days 6 mL 1 08/04/2024 11/02/2024 Active topiramate 200 mg oral tablet (18 sources) take 1 tablet by mouth once daily topiramate (TOPAMAX) 200 MG tablet Take 200 mg by mouth daily Active traMADol hydrochloride 50 mg oral tablet (20 sources) Opioid Agonist Start: 01-21-2023 take 1 tablet by mouth once daily as needed for pain Tramadol 50 mg tablet Active 50 MG PO Daily as needed for pain May 20, 2023 12:00am Ultram Active traZODone [...] Date: 10/14/18 Status: Ordered Vitamin B Complex (Vitamins B Complex) tablet (2 sources) Start: 07-27-2024 take 1 tablet by mouth once daily in the morning Vitamin B Complex (Vitamins B Complex) tablet Active 1 TAB PO Every morning July 27, 2024 12:00am Vitamin D (13 sources) Vitamin D Active zonisamide 100 mg oral capsule (18 sources) Anti-epileptic Agent take 1 capsule by mouth once daily zonisamide (ZONEGRAN) 100 MG capsule Take 100 mg by mouth daily Active Completed/Discontinued Medications Medication Drug Class(es) Dates Sig (Normalized) Sig (Original) bifidobacterium infantis 4 mg oral capsule (20 sources) Start: 01-07-2023 End: 08-08-2024 take 1 capsule by mouth once daily Bifidobacterium Infantis (Align (B.Infantis)) 4 mg capsule Discontinued 4 MG PO Daily June 02, 2024 10:01am July 27, 2024 11:25am Dulaglutide (Trulicity) 3 mg/0.5 mL pen injector (5 sources) Start: 05-20-2023 End: 05-21-2023 Dulaglutide (Trulicity) 3 mg/0.5 mL pen injector Discontinued MG SUBCUT May 19, 2023 11:00pm May 21, 2023 9:20am Start: 05-20-2023 End: 05-21-2023 Dulaglutide (Trulicity) 3 mg /0.5 mL pen injector Discontinued MG SUBCUT May 20, 2023 12:00am May 21, 2023 10:20am Duloxetine 30 mg capsule,delayed release(DR/EC) (4 sources) Start: 05-21-2023 End: 10-15-2023 take 1 capsule by mouth once daily Duloxetine 30 mg capsule,delayed release(DR/EC) Discontinued 30 MG PO Daily May 21, 2023 12:00am October 15, 2023 9:27am Start: 05-21-2023 End: 10-15-2023 take 1 capsule by mouth once daily Duloxetine 30 mg capsule,delayed release(DR/EC) Discontinued 30 MG PO Daily May 20, 2023 11:00pm October 15, 2023 8:27am Etonogestrel (Nexplanon) 68 mg implant (5 sources) Start: 05-20-2023 End: 07-27-2024 Etonogestrel (Nexplanon) 68 mg implant Discontinued 68 MG SUBDERMAL As Directed May 20, 2023 12:00am July 27, 2024 11:11am Start: 05-20-2023 Etonogestrel ( Nexplanon) 68 mg implant Active 68 MG SUBDERMAL As Directed May 19, 2023 11:00pm Start: 05-20-2023 Etonogestrel ( Nexplanon) 68 mg implant Active 68 MG SUBDERMAL As Directed May 20, 2023 12:00am Iron (20 sources) Iron Not-Taking/ PRN Iron Not-Taking Iron Active 1 ml ketorolac tromethamine 30 mg/ml cartridge (1 source) Nonsteroidal Anti-inflammatory Drug, Cyclooxygenase Inhibitor Start: 04-20-2023 End: 04-20-2023 ketorolac (TORADOL) injection 30 mg Start: 04-20-2023 End: 04-20-2023 ketorolac (TORADOL) injectio n 30 mg lansoprazole 30 mg delayed release oral capsule (20 sources) Proton Pump Inhibitor Start: 04-29-2024 End: 06-14-2024 take 1 capsule by mouth once daily Lansoprazole 30 mg capsule,delayed release(DR/EC) Discontinued 30 MG PO Daily 30 June 02, 2024 10:00am June 14, 2024 3:23pm 3 ml liraglutide 6 mg/ml pen injector (20 sources) GLP-1 Receptor Agonist Start: 05-21-2023 End: 06-02-2024 Liraglutide (Victoza 2-Ramon) 0.6 mg/0.1 mL (18 mg/3 mL) pen injector Discontinued MG SUBCUT May 21, 2023 12:00am June 02, 2024 9:36am Start: 05-19-2023 End: 04-07-2024 inject 1.8 mg by subcutaneous injection once daily Victoza 18 MG/3ML injection Inject 1.8 mg under the skin Daily 05/19/2023 04/07/2024 Discontinued (Formulary change) meloxicam 15 mg oral tablet (20 sources) Nonsteroidal Anti-inflammatory Drug Start: 05-21-2023 End: 07-27-2024 take 2 tablets by mouth once daily Meloxicam 15 mg tablet Discontinued 30 MG PO Daily May 21, 2023 12:00am July 27, 2024 11:19am Start: 05-21-2023 take 30 mg by mouth once daily Meloxicam Active 30 MG PO Daily May 21, 2023 12:00am take 1 tablet by elan th once daily meloxicam (MOBIC) 15 MG tablet Take 1 tablet by mouth daily Active ondansetron 4 mg disintegrating oral tablet (1 [...] Subcutaneous Not-Taking Plecanatide (Trulance) 3 mg tablet (5 sources) Start: 05-21-2023 End: 05-21-2023 take 1 tablet by mouth once daily Plecanatide (Trulance) 3 mg tablet Discontinued 3 MG PO Daily May 20, 2023 11:00pm May 21, 2023 10:36am Start: 05-21-2023 End: 05-21-2023 take 1 tablet by mouth once daily Plecanatide (Trulance) 3 mg tablet Discontinued 3 MG PO Daily May 21, 2023 12:00am May 21, 2023 11:36am polyethylene glycol [id number] mg powder for oral solution (7 sources) [...] Subcutaneous Not-Taking 50 ml sodium chloride 9 mg/m l injection (1 source) Start: 01-13-2024 End: 01-13-2024 1,000 mL (10.4 mL/kg), IntraVENous, at 983.6 mL/hr, Administer over 61 Minutes, ONCE, On Thu01/13/24 at 1530, For 1 dose, For adult patients weighing > 55 kg (120 lbs.) and less than Tirzepatide (3 sources) Start: 06-02-2024 End: 07-27-2024 Tirzepatide (Mounjaro) 15 mg /0.5 mL pen injector Discontinued 15 MG SUBCUT every week June 02, 2024 12:00am July 27, 2024 11:25am Start: 06-02-2024 Tirzepatide (M ounjaro) 15 mg/0.5 mL pen injector Active 15 MG SUBCUT every week June 02, 2024 12:00am tiZANidine 4 mg oral tablet (20 sources) Central alpha-2 Adrenergic Agonist Start: 10-16-2023 End: 04-18-2024 take 2 tablets by mouth at bedtime tiZANidine (Zanaflex) 4 MG tablet Indications: Migraine with aura and without status migrainosus, not intractable (CMS/HCC) TAKE 2 TABLETS BY MOUTH AT BEDTIME 60 tablet 2 10/16/2023 04/18/2024 Discontinued (Other) Start: 05-21-2023 End: 07-27-2024 take 2 tablets by mouth once daily at bedtime Tizanidine 4 mg tablet Discontinued 8 MG PO Daily at bedtime May 21, 2023 10:24am July 27, 2024 11:21am Start: 05-21-2023 take 8 mg by mouth [...] Date Documented Da te Episodic/Chronic Administrative/social admission (6 sources) Patient encounter status; Translations: [Dietary counseling and surveillance] Onset: 4 04-07-2024 Episodic Anxiety disorders (20 sources) Posttraumatic stress disorder; Translations: [Post-traumatic stress disorder, unspecified] Onset: 9 Chronic Asthma (20 sources) Asthma; Translations: [Unspecified asthma, uncomplicated] Onset: 4 03-10-2023 Chronic Attention-deficit, conduct, and disruptive behavior disorders (20 sources) Attention deficit hyperactivity disorder; Translations: [Attention-deficit hyperactivity disorder, unspecified type] Onset: 5 Resolved: 5 05-20-2023 Chronic Attention-deficit, conduct, and disruptive behavior disorders (9 sources) Attention-deficit hyperactivity disorder, unspecified type; Translations: [Attention deficit disorder with hyperactivity] Chronic Calculus of urinary tract (12 sources) Personal history of urinary calculi; Translations: [History of calculus of kidney] Episodic Contraceptive and procreative management (3 sources) Subcutaneous contraceptive implant present; Translations: [Encounter for surveillance of implantable subdermal contraceptive] 06-30-2024 Episodic Deficiency and other anemia (1 source) Anemia, unspecified; Translations: [Anemia, unspecified] Onset: 4 Episodic Deficiency and other anemia (1 source) Iron deficiency anemia, unspecified; Translations: [Iron deficiency anemia, unspecified] Onset: 4 Episodic Diabetes mellitus with complications (20 sources) Hyperglycemia due to type 2 diabetes mellitus; Translations: [Type 2 diabetes mellitus with hyperglycemia] Onset: 4 Chronic Diabetes mellitus without complication (20 sources) 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; Translations: [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s] Onset: 8 03-10-2023 Chronic Disorders of lipid metabolism (20 sources) Hyperlipidemia; Translations: [Hyperlipidemia, unspecified] Onset: 4 02-11-2024 Chronic Diverticulosis and diverticulitis (20 sources) Diverticulitis; Translations: [Diverticulitis of intestine, part unspecified, without perforation or abscess without bleeding] Onset: 4 03-10-2023 Chronic E Codes: Fall (1 source) Unspecified fall due to ice and snow, initial encounter; Translations: [Fall from other slipping, tripping, or stumbling] 04-20-2023 Episodic Esophageal disorders (5 sources) Gastroesophageal reflux disease; Translations: [Gastro-esophageal reflux disease without esophagitis] 06-15-2024 Chronic Essential hypertension (2 sources) Essential (primary) hypertension; Translations: [Essential (primary) hypertension] Onset: 5 Chronic Gastrointestinal hemorrhage (1 source) Hemorrhage of anus and rectum Episodic Headache; including migraine (2 sources) Tension-type headache; Translations: [Tension-type headache, unspecified, not intractable] 11-30-2023 Chronic Mycoses (2 sources) Onychomycosis of toenails; Translations: [Tinea unguium] 04-18-2024 Episodic Nausea and vomiting (1 source) Nausea 11-26-2018 Episodic Nonspecific chest pain (10 sources) Chest pain, unspecified; Translations: [Chest pain] Onset: 4 10-15-2023 Episodic Nutritional deficiencies (20 sources) Vitamin D deficiency; Translations: [Vitamin D deficiency, unspecified] Onset: 4 02-11-2024 Chronic Osteoarthritis (20 sources) Osteoarthritis of joint of left ankle and/or foot; Translations: [Primary osteoarthritis, left ankle and foot] Onset: 4 03-10-2023 Chronic Other ear and sense organ disorders (1 source) Acute otitis externa; Translations: [Diffuse otitis externa, left ear] Episodic Other endocrine disorders (20 sources) Reactive hypoglycemia; Translations: [Other hypoglycemia] 05-20-2023 Chronic Other endocrine disorders (8 sources) Other hypoglycemia Chronic Other endocrine disorders (4 sources) Disorder of endocrine system; Translations: [Endocrine disorder, unspecified] 04-18-2024 Episodic Other gastrointestinal disorders (5 sources) Irritable bowel syndrome; Translations: [Irritable bowel syndrome without diarrhea] 05-21-2023 Chronic Other gastrointestinal disorders (5 sources) Irritable bowel syndrome without diarrhea; Translations: [Irritable bowel syndrome] 05-21-2023 Chronic Other gastrointestinal disorders (1 source) Intestinal malabsorption, unspecified; Translations: [Intestinal malabsorption, unspecified] Onset: Chronic Other gastrointestinal disorders (1 source) Irritable bowel syndrome characterized by constipation; Translations: [Irritable bowel syndrome with constipation] 08-08-2024 Chronic Other gastrointestinal disorders (1 source) Irritable bowel syndrome with constipation; Translations: [Irritable bowel syndrome] 08-08-2024 Chronic Other gastrointestinal disorders (14 sources) Constipation; Translations: [Constipation, unspecified] 03-02-2023 Episodic Other gastrointestinal disorders (9 sources) Constipation, unspecified; Translations: [Constipation, unspecified] Episodic Other inflammatory condition of skin (2 sources) Itching ; Translations: [Pruritus, unspecified] 08-02-2024 Episodic Other injuries and conditions due to external causes (1 source) Closed injury of head; Translations: [Unspecified injury of head, initial encounter] 04-20-2023 Episodic Other liver diseases (20 sources) Steatosis of liver; Translations: [Fatty (change of) liver, not elsewhere classified] 05-20-2023 Chronic Other liver diseases (14 sources) Fatty (change of) liver, not elsewhere classified; Translations: [Other chronic nonalcoholic liver disease] Onset: 2 Resolved: 2 Chronic Other nervous system disorders (20 sources) Circadian rhythm sleep disorder of shift work type; Translations: [Circadian rhythm sleep disorder, shift work type] Onset: 5 Resolved: 5 05-20-2023 Chronic Other nervous system disorders (9 sources) Circadian rhythm sleep disorder, shift work type; Translations: [Circadian rhythm sleep disorder, shift work type] Chronic Other nervous system disorders (2 sources) Paresthesia; Translations: [Paresthesia of skin] 11-30-2023 Episodic Other non-traumatic joint disorders (2 sources) Ankle pain; Translations: [Ankle Pain] Onset: 5 Episodic Other nutritional; endocrine; and metabolic disorders (20 sources) Obesity; Translations: [Obesity, unspecified] Onset: 4 05-20-2023 Chronic Other nutritional; endocrine; and metabolic disorders (20 sources) Other lipoprotein metabolism disorders; Translations: [Steatosis] Chronic Other nutritional; endocrine; and metabolic disorders (13 sources) Obesity, unspecified; Translations: [Obesity, unspecified] Onset: 2 Resolved: 2 Chronic Other nutritional; endocrine; and metabolic disorders [...] nutritional; endocrine; and metabolic disorders (12 sources) Body mass index 30+ - obesity; Translations: [Body mass index (BMI) 36.0-36.9, adult] 06-05-2023 Chronic Other nutritional; endocrine; and metabolic disorders (6 sources) Severe obesity; Translations: [Class 2 severe obesity due to excess calories with serious comorbidity and body mass index (BMI) of 39.0 to 39.9 in adult ([facility])] 04-07-2024 Chronic Other nutritional; endocrine; and metabolic disorders (4 sources) Weight increased; Translations: [Abnormal weight gain] 04-07-2024 Episodic Other screening for suspected conditions (not mental disorders or infectious disease) (20 sources) Elevated liver enzymes level; Translations: [Abnormal results of liver function studies] Onset: 2 Episodic Other upper respiratory disease (20 sources) Chronic rhinitis; Translations: [Chronic rhinitis] Onset: 4 03-10-2023 Chronic Residual codes; unclassified (4 sources) Obstructive sleep apnea (adult) (pediatric); Translations: [OBSTRUCTIVE SLEEP APNEA] Onset: 3 Chronic Residual codes; unclassified (7 sources) Obstructive sleep apnea syndrome; Translations: [Obstructive sleep apnea (adult) (pediatric)] 11-30-2023 Chronic Residual codes; unclassified (1 source) Pain, unspecified; Translations: [Pain, unspecified] Onset: 4 Episodic Residual codes; unclassified (1 source) Genetic susceptibility to other malignant neoplasm; Translations: [Genetic susceptibility to other malignant neoplasm] Onset: 4 Episodic Residual codes; unclassified (4 sources) Other specified health status; Translations: [Other [...] Translations: [Displacement of cervical intervertebral disc] Onset: 8 03-10-2023 Chronic Sprains and strains (1 source) Strain of neck muscle; Translations: [Strain of muscle, fascia and tendon at neck level, initial encounter] 04-20-2023 Episodic Unclassified (1 source) New Patient Onset: Past or Other Problems Problem Classification Problem [...] encounter] Onset: 09-28-2016 Resolved: 03-10-2023 03-10-2023 Episodic Conditions associated with dizziness or vertigo (2 sources) Dizziness; Translations: [Dizziness and giddiness] Onset: 01-13-2024 01-13-2024 Episodic Deficiency and other anemia (20 sources) Anemia; Translations: [Anemia, unspecified] Onset: 03-10-2023 03-10-2023 Episodic Immunizations and screening for infectious disease (1 source) Encounter for screening for other viral diseases; Translations: [ENC SCREENING FOR OTH VIRAL DZ] Onset: 02-25-2022 Episodic Impulse control disorders, NEC (18 sources) Impulse control disorder; Translations: [Impulse disorder, unspecified] Onset: 04-27-2024 Resolved: 04-27-2024 Chronic Lymphadenitis (20 sources) Axillary lymphadenopathy; Translations: [Localized enlarged lymph nodes] Onset: 05-10-2020 03-10-2023 Episodic Mood disorders (19 sources) Mixed bipolar affective disorder, moderate; Translations: [...] right foot] Onset: 03-10-2023 03-10-2023 Episodic Other liver diseases (4 sources) Abnormal [...] pain] Onset: 12-02-2022 Resolved: 02-18-2024 03-10-2023 Episodic Results Test Name Value Interpretation Reference Range Facility Glucose (Bld) [Mass/Vol]on 0 08-04-2024 Glucose Blood, POC 131 mg/dL [facility] Interpretation and review of laboratory results Abnormal [facility] HbA1c (Bld) [Mass fraction]o n 08-04-2024 Interpretation and review of laboratory results Normal [facility] Laboratory - Hematology and Cell countson 08-04-2024 HbA1c (Bld) [Mass fraction] 5.8 % [facility] No Panel Informationon 08-04 [facility] Orders Onlyon 08-03-2024 Orders Only [id number] Karma Whitehead 1980 F Date Provider Department Center 08/03/2024 Elena-CHIO CARRILLO [facility] No family history on file [facility] 36on 07-29-2024 36 Patient is calling b ack to follow up on Normal [facility] 36 Pt called stating th at she needs an appeal done for stress and echo. today as this is the last day and she is having surgery 08/10 and 08/18. Notes need to be recover from [place] [facility] Abstracton 07-26-2024 Abstract [id number] Karma Whitehead 1980 F Date Provider Department Center 07/26/2024 KENZIE MENDEZ [facility] No family history on file [facility] Urinalysis w/ Microon 2024 Amorphous sediment LM Ql (Urine sed) TRACE Abnormal NONE [facility] Comment on above: Performed By: #### L IVP #### [facility] [address] [place] [address] [place] [address] Electrotype Molder: Domenica Velázquez MD Bacteria TRACE Abnormal NONE [facility] Comment on above: Performed By: #### L IVP #### [facility] [address] [place] [address] Electrotype Molder: Domenica Velázquez MD Bilirubin, SemiQt,Ur Negative Normal NEG [facility] Comment on above: Performed By: #### L IVP #### [facility] [address] [place] [address] [place] [address] Electrotype Molder: Domenica Velázquez MD Blood, Urine Negative Normal NEG [facility] Comment on above: Performed By: #### L IVP #### [facility] [address] [place] [address] Electrotype Molder: Domenica Velázquez MD Clarity (U) Clear Normal CLEAR [facility] Comment on above: Performed By: #### L IVP #### [facility] [address] [place] [address] Electrotype Molder: Domenica Velázquez MD Color (U) Yellow Normal YEL [facility] Comment on above: Performed By: #### L IVP #### [facility] [address] [place], [place] [id number] Electrotype Molder: Domenica Velázquez MD Epithelial cells LM Ql (Urine sed) 0 TO 2 Normal 0-25 [facility] Comment on above: Performed By: #### L IVP #### [facility] [address] [place], [place] [id number] Electrotype Molder: Domenica Velázquez MD Glucose Ql (U) 3+ mg/dL Abnormal NEG [facility] Comment on above: Performed By: #### L IVP #### [facility] [address] [place], [place] [id number] Electrotype Molder: Domenica Velázquez MD Ketones Ql (U) Negative Normal NEG [facility] Comment on above: Performed By: #### L IVP #### [facility] [address] [place] [address] Dr[place], [place] [id number] Electrotype Molder: Domenica Velázquez MD Leukocyte esterase Test strip Ql (U) Negative Normal NEG [facility] Comment on above: Performed By: #### L IVP #### [facility] [address] [place] [address] [place] [place], [place] [id number] Electrotype Molder: Domenica Velázquez MD Mucus Strands TRACE Abnormal NONE [facility] Comment on above: Performed By: #### L IVP #### [facility] [address] [place] [address] Dr[place], [place] [id number] Electrotype Molder: Domenica Velázquez MD Nitrite,Ur Negative Normal NEG [facility] Comment on above: Performed By: #### L IVP #### [facility] [address] [place] [address] Dr[address] [place], [place] [id number] Electrotype Molder: Domenica Velázquez MD PH,Ur 6.0 Normal 5.0-9.0 [facility] Comment on above: Performed By: #### L IVP #### [facility] [address] [place] [id number] Electrotype Molder: Domenica Velázquez MD Protein Ql (U) Negative Normal NEG [facility] in [facility] Comment on above: Performed By: #### L IVP #### [facility] [address] [place], [place] [id number] Electrotype Molder: Domenica Velázquez MD Spec. [place],Ur 1.025 High 1.010-1.02 0 [facility] Comment on above: Performed By: #### L IVP #### [facility] [address] [place] [address] [place], [place] [id number] Electrotype Molder: Domenica Velázquez MD Urine RBC's 0 TO 2 Normal 0-2 [facility] Comment on above: Performed By: #### L IVP #### [address] [place], [place] [id number] Electrotype Molder: Domenica Velázquez MD Urine WBC's 0 TO 2 Normal 0-5 [facility] Comment on above: Performed By: #### L IVP #### [facility] [address] [place] [address] [place], [place] [id number] Electrotype Molder: Domenica Velázquez MD Urobilinogen,Ur Normal Normal 0.0-1.0 [facility] Comment on above: Performed By: #### L IVP #### [facility] [address] [place] [address] [place] [id number] Electrotype Molder: Domenica Velázquez MD Urinalysis with Microscopico n 07-16-2024 Amorphous sediment LM Ql (Urine sed) TRACE Abnormal None [facility] Bacteria LM Ql (Urine sed) TRACE Abnormal None [facility] Bilirubin Ql (U) Negative NEGATIVE [facility] Clarity (U) Clear Clear [facility] Color (U) Yellow Yellow [facility] Epithelial cells LM.HPF (Urine sed) [#/Area] 0 TO 2 [facility] Glucose Test strip (U) [Mass/Vol] 3+ Abnormal NEGATIVE mg/dL [facility] Hemoglobin Auto test strip Ql (U) Negative NEGATIVE [facility] Interpretation and review of laboratory results Abnormal [facility] Ketones (U) [Mass/Vol] Negative NEGATIVE mg/dL [facility] Leukocyte esterase Test strip Ql (U) Negative NEGATIVE [facility] Mucus Ql (Urine sed) TRACE Abnormal None [facility] Nitrite Ql (U) Negative NEGATIVE [facility] pH (U) 6 [pH] 5.0 - 9.[address] [facility] Protein (U) [Mass/Vol] Negative NEGATIVE mg/dL [facility] RBC LM.HPF (Urine sed) [#/Area] 0 TO 2 [facility] [facility] Specific gravity (U) [Rel density] 1.025 High 1.010 - 1.[address] [facility] Urobilinogen Qn (U) Normal 0.0 - 1. 0 EU/dL [facility] WBC LM.HPF (Urine sed) [#/Area] 0 TO 2 [facility] XR ANKLE LEFT (MIN 3 VIEWS)o n 07-16-2024 XR ANKLE LEFT (MIN 3 VIEWS) EXAMINATION: THREE XRAY VIEWS OF THE LEFT [...] by: Faheem Long MD 07/16/24 Final result Normal [facility] XR Ankle - left 3 Viewson 1. No acute abnormal ity. [facility] EXAMINATION: THREE XRAY VIEWS OF THE LEFT ANKLE 07/16/2024 11:49 am COMPARISON: None. HISTORY: ORDERING SYSTEM PROVIDED HISTORY: Pain Hx previous Surgery TECHNOLOGIST PROVIDED HISTORY: Pain Hx previous Surgery FINDINGS: There is no acute fracture or dislocation. There are old healed tibial and fibular fractures. The ankle mortise is intact. The bones are demineralized. There are no bony destructive lesions. [facility] Faheem Long MD - 07/16/2024 EXAMINATION: THREE [...] destructive lesions. IMPRESSION: 1. No acute abnormality. [facility] Radiology Study observation (narrative) [facility] XR HIP BILATERAL W AP PELVIS (2 VIEWS)on 07-16-2024 XR HIP BILATERAL W AP PELVIS (2 VIEWS) EXAMINATION: ONE XRAY VIEW OF THE PELVIS [...] by: Faheem Long MD 07/16/24 Final result Normal [facility] XR LUMBAR SPINE (2-3 VIEWS)o n 07-16-2024 XR LUMBAR SPINE (2-3 VIEWS) EXAMINATION: 3 XRAY VIEWS OF THE LUMBAR [...] by: Faheem Long MD 07/16/24 Final result Normal [facility] XR Lumbar spine 2 or 3 Views on 07-16-2024 1. Mild multilevel spondylosis. [facility] EXAMINATION: 3 XRAY VIEWS OF THE LUMBAR SPINE 07/16/2024 11:46 am COMPARISON: None. HISTORY: ORDERING SYSTEM PROVIDED HISTORY: back pain TECHNOLOGIST PROVIDED HISTORY: back pain FINDINGS: The 5 lumbar vertebral bodies are in anatomic alignment. The vertebral body heights are maintained. There is mild multilevel spondylosis and facet arthropathy. Status post cholecystectomy. [facility] Faheem Long MD - 07/16/2024 EXAMINATION: 3 XRAY VIEWS OF THE LUMBAR SPINE 07/16/2024 11:46 am COMPARISON: None. HISTORY: ORDERING SYSTEM PROVIDED HISTORY: back pain TECHNOLOGIST PROVIDED HISTORY: back pain FINDINGS: The 5 lumbar vertebral bodies are in anatomic alignment. The vertebral body heights are maintained. There is mild multilevel spondylosis and facet arthropathy. Status post cholecystectomy. IMPRESSION: 1. Mild multilevel spondylosis. [facility] Radiology Study observation (narrative) [facility] XR Lumbar spine 2 or 3 Views Ordered By: Faheem Long on 07-16-[address] [facility] Work Phone: XR Pelvis and Hip - bilatera l Viewson 07-16-2024 1. No acute abnormal ity. [facility] EXAMINATION: ONE XRAY VIEW OF THE PELVIS [...] lesions. 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 [facility] Faheem Long MD - 07/16/2024 EXAMINATION: ONE [...] hip osteoarthritis. IMPRESSION: 1. No acute abnormality. [facility] Radiology Study observation (narrative) [facility] Abstracton 07-08-2024 Abstract [id number] Karma Whitehead 1980 F Date Provider Department Center 07/08/[address] [place], [place] [address]ActivIdentityKENZIE [employer] [facility] No family history on file Normal [facility] Insertion/Removal of Contrac eptive Capsuleon 06-30-2024 Bela Ribeiro LPN 06/30/2024 12:29 PM Insertion/Removal of Contraceptive Capsule Date/Time: 06/30/2024 10:51 AM Performed by: Roel Garber DO Authorized by: Roel Gabrer DO Consent: Consent obtained: Written Consent given [...] with steri-strips and pressure bandage applied: yes [facility] Healthcare Office Visiton 06-20-2024 Follow-up visit [id number] Karma Whiethead 1980 F Date Provider Department Center 06/20/2024 [id number], [facility] No family history on file Level of Service:[address] [place] OFFICE/OUTPATIENT NEW LOW MDM 30 MINUTES Normal [facility] IGP,APTIMA HPV,AGE GDLNon AGE GDLN ACOG TESTING Note . [facility] Comment on above: TESTS RESULT FLAG UN ITS REF RANGE LAB Clinician Provided Cytology Information Source.............Cervix;Endocervix No. of containers..01 ThinPrep Vial Age Socoo LUPEOG Rosana... 01 FLAG LEGEND: L-Low Normal,H-High Normal,LL-Alert Low,HH-Alert High <-Panic Low,>-Panic High,A-Abnormal,AA-Critical Abnormal Performed at: 01 =G [address] [phone] Kristin Matute MD, HPV APTIMA Negative Negative [facility] Comment on above: This nucleic acid am plification test detects fourteen high- risk HPV types (16,18,31,33,35,39,45,51,52,56,58,59,66,68) without differentiation. Performed at: =[address] [id number] Electrotype Molder: Kristin Matute MD, Phone: [phone] Performed at: [address] [id number] Electrotype Molder: Kristin Matute MD, Phone: [phone] IGP, APTIMA HPV, RFX 16/18,45 Note . [facility] Comment on above: TESTS RESULT FLAG UN ITS REF RANGE LAB DIAGNOSIS: 02 NEGATIVE FOR INTRAEPITHELIAL LESION OR MALIGNANCY. THIS SPECIMEN WAS RESCREENED PART OF OUR STATION MANAGER PROGRAM. Specimen adequacy: 02 Satisfactory for evaluation. Endocervical and/or squamous metaplastic cells (endocervical component) are present. Performed by: 02 Caro Tejada, Rn Neurosurgical (ASCP) QC reviewed by: 02 Hannah Valadez, Rn Neurosurgical (ASCP) . 02 Note: Note 02 The Pap [...] High,A-Abnormal,AA-Critical Abnormal Performed at: 02 WB [facility] [address] [address] Kristin Matute MD, BRUSH-SPATULA CERVIX ENDOCERVIX [facility] MM TOMOSYNTHESIS SCREENING B Ion 05-27-2024 [place] [address] Mammography Report Signed Patient: KARMA WHITEHEAD MR#: [id number] : 1980 Acct:[id number] Age/Sex: 43 / F ADM Date: 05/27/24 Loc: MAMMO Attending Dr: Roel Garber D.O. Ordering Physician: Roel Garber D.O. Results: Date of Service: 05/27/24 Follow Up: Procedure(s): MM tomosynthesis screening BI Accession Number(s): [id number] cc: Roel Garber D.O.; Loreto Mcneal NP Patient Name: KARMA WHITEHEAD MR#: [id number] : 1980 Exam Date: 05/27/2024 Ordering Doctor: [...] Treatments None Family Cancers None LOCATION: The [facility] BREAST COMPOSITION: There are scattered areas [...] Signed By: 05/27/24 1649 DD/ 47 TD/TT: Intensivist: [facility] Radiology, Radiologleobardo moctezuma MD - 05/27/2024 [place] [address] Mammography Report Signed Patient: KARMA WHITEHEAD MR#: [id number] : 1980 Acct:[id number] Age/Sex: 43 / F ADM Date: 05/27/24 Loc: MAMMO Attending Dr: Roel Garber D.O. Ordering Physician: Roel Garber D.O. Results: Date of Service: 05/27/24 Follow Up: Procedure(s): MM tomosynthesis screening BI Accession Number(s): [id number] cc: Roel Garber D.O.; Loreto Mcneal NP Patient Name: KARMA WHITEHEAD MR#: [id number] : 1980 Exam Date: 05/27/2024 Ordering Doctor: [...] Treatments None Family Cancers None LOCATION: The [facility] BREAST COMPOSITION: There are scattered areas [...] Dictated By: Mio Serra D.O. Signed By: 05/27/241648 DD/ 47 TD/TT: Intensivist: [facility] Radiology Study observation (narrative) [facility] MM TOMOSYNTHESIS SCREENING B IOrdered By: Radiologist Radiology on 05-27-2024 [facility] Work Phone: Urinalysis macro (dipstick) panel (U)on 05-26-2024 Bilirubin, UA Negative Negative - 4(70) +++ mg/dL [facility] Blood, UA Negative Negative - 50 Donta/mcL [facility] Clarity, UA Clear [facility] Color, UA Yellow [facility] Glucose, UA Positive Negative - 1999(110) ++++ mg/dL [facility] Comment on above: 500 Interpretation and review of laboratory results Abnormal [facility] Ketones, UA Negative Negative - 160(16) ++++ mg/dL [facility] Leukocytes, UA Negative Negative - 500+++ Quique/mcL [facility] Nitrite, UA Negative Negative - Positive [facility] pH, UA 6 5 - 9 [facility] Protein, UA Negative Negative - 1999(20) ++++ mg/dL [facility] Spec Grav, UA 1.01 1 - 1.03 [facility] Urobilinogen, UA 0.2 0.2 - 12 mg/dL [facility] MLR HEMOGLOBIN A1Con 025 Glucose [Mass/Vol] 123 mg/dL [facility] HbA1c (Bld) [Mass fraction] 5.9 % 4.5 - 6.2 % [facility] Comment on above: ADA RECOMMENDED LIMI T 4.0 - 6.0 ADA THERAPEUTIC TARGET < 7.0 ACTION SUGGESTED > 7.0 [facility] Glucose (Bld) [Mass/Vol]on 0 04-07-2024 Glucose Blood, POC 115 mg/dL [facility] Laboratory - Hematology and Cell countson 04-07-2024 HbA1c (Bld) [Mass fraction] 5.8 % [facility] No Panel Informationon 04-07 Interpretation and review of laboratory results Normal [facility] Strep A Culture Onlyon 03-09 Strep A Culture Only No Group A Beta Streptococcus Isolated 2 Days PERFORMED BY: [place] [address] PATHOLOGIST HARDENING MACHINE OPERATOR HELPER DALIA SEARS M.D. Normal [facility] Comment on above: Performed By: #### C USTA #### [address] Streptococcus pyogenes cultu reOrdered By: Mio Marroquin on 03-09-2024 S. pyogenes Org specific cx Ql (Unsp spec) Streptococcus pyogenes culture [facility] CBC with Auto Differentialon 01-13-2024 Basophils (Bld) [#/Vol] 0.06 10*3/uL [facility] Basophils/100 WBC (Bld) 0 % [...] [Mass/Vol] 14.0 g/dL 11.9 - 15.1 g/dL [facility] Immature granulocytes (Bld) [#/Vol] 0.10 10*3/uL [facility] Immature granulocytes/100 WBC (Bld) 1 % High 0 [facility] Interpretation and review of laboratory results Abnormal [facility] Lymphocytes/100 WBC (Bld) 22 % Low 24 - 43 % [facility] Lymphocytes/100 WBC (Bld) 2.98 % [facility] MCH (RBC) [Entitic mass] 28.5 pg 25.2 - 33.5 pg [facility] MCHC (RBC) [Mass/Vol] 32.3 g/dL 28.4 - 34.8 g/dL [facility] MCV (RBC) [Entitic vol] 88.2 fL 82.6 - 102.9 fL [facility] Monocytes/100 WBC (Bld) 8 % 3 - 12 % [facility] Monocytes/100 WBC (Bld) 1.12 % [facility] Neutrophils/100 WBC (Bld) 68 % High 36 - 65 % [facility] Nucleated RBC/100 WBC (Bld) [Ratio] 0.0 % 0.0 per 100 WBC [facility] Platelet mean volume (Bld) [Entitic vol] 10.0 fL 8.1 - 13.[address] [facility] Platelets (Bld) [#/Vol] 452 10*3/uL [facility] RBC (Bld) [#/Vol] 4.91 10*6/uL 3.95 - 5.11 m/uL [facility] Segmented neutrophils/100 WBC (Bld) 9.08 % High [facility] WBC other (Bld) [#/Vol] 13.4 High [facility] CBC with Diffon 01-13-2024 Abs. Basophil 0.06 k/uL Normal 0.00-0.20 [facility] Comment on above: Performed By: #### C DP, CP #### [address] [place] [address] Electrotype Molder: Domenica Velázquez MD Abs.Imm.Granulocyte 0.10 k/uL Normal 0.00-0.30 [facility] Comment on above: Performed By: #### C DP, CP #### [address] [place], [place] [id number] Electrotype Molder: Domenica Velázquez MD Abs.Neutrophil (Seg) 9.08 k/uL High 1.50-8.10 [facility] Comment on above: Performed By: #### C DP, CP #### [address] [place], [place] [address] Electrotype Molder: Domenica Velázquez MD Basophils/100 WBC (Bld) 0 % Normal 0-2 [facility] Comment on above: Performed By: #### C DP, CP #### [facility] [address] [place] [address] Electrotype Molder: Domenica Velázquez MD Eosinophils (Bld) [#/Vol] 0.10 10*3/uL Normal 0.00-0.44 [facility] Comment on above: Performed By: #### C DP, CP #### [address] [place] [address] Electrotype Molder: Domenica Velázquez MD Eosinophils/100 WBC (Bld) 1 % Normal 1-4 [facility] Comment on above: Performed By: #### C DP, CP #### [facility] [address] [place], [place] [id number] Electrotype Molder: Domenica Velázquez MD Erythrocyte distribution width (RBC) [Ratio] 13.6 % Normal 11.8-14.4 [facility] Comment on above: Performed By: #### C DP, CP #### [facility] [address] [place], [place] [id number] Electrotype Molder: Domenica Velázquez MD Hematocrit (Bld) [Volume fraction] 43.3 % Normal 36.3-47.1 [facility] Comment on above: Performed By: #### C DP, CP #### [address] [place], [facility]83 Electrotype Molder: Domenica Velázquez MD Hemoglobin (Bld) [Mass/Vol] 14.0 g/dL Normal 11.9-15.1 [facility] Comment on above: Performed By: #### C DP, CP #### [address] [place], [place] [address] Electrotype Molder: Domenica Velázquez MD Immature granulocytes/100 WBC (Bld) 1 % High 0 [facility] Comment on above: Performed By: #### C DP, CP #### [facility] [address] [place] [address] Dr[place], [facility]83 Electrotype Molder: Domenica Velázquez MD Lymphocytes (Bld) [#/Vol] 2.98 10*3/uL Normal 1.10-3.70 [facility] Comment on above: Performed By: #### C DP, CP #### [address] [place], [place] [address] Electrotype Molder: Domenica Velázquez MD Lymphocytes/100 WBC (Bld) 22 % Low 24-43 [facility] Comment on above: Performed By: #### C DP, CP #### [facility] [address] [place], [place] [address] Electrotype Molder: Domenica Velázquez MD MCH (RBC) [Entitic mass] 28.5 pg Normal 25.2-33.5 [facility] Comment on above: Performed By: #### C DP, CP #### [facility] [address] [place], [facility]83 Electrotype Molder: Domenica Velázquez MD MCHC (RBC) [Mass/Vol] 32.3 g/dL Normal 28.4-34.8 [facility] Comment on above: Performed By: #### C DP, CP #### [address] [place], [place] [address] Electrotype Molder: Domenica Velázquez MD MCV (RBC) [Entitic vol] 88.2 fL Normal 82.6-102.9 [facility] Comment on above: Performed By: #### C DP, CP #### [address] [place], [place] [address] Electrotype Molder: Domenica Velázquez MD Monocytes (Bld) [#/Vol] 1.12 10*3/uL Normal 0.10-1.20 [facility] Comment on above: Performed By: #### C DP, CP #### [facility] [address] [place] [address] Dr. [place], [facility]83 Electrotype Molder: Domenica Velázquez MD Monocytes/100 WBC (Bld) 8 % Normal 3-12 [facility] Comment on above: Performed By: #### C DP, CP #### [address] [place], [place] [id number] Electrotype Molder: Domenica Velázquez MD Neutrophil (Seg) 68 % High 36-65 [facility] Comment on above: Performed By: #### C DP, CP #### [facility] [address] [place], [place] [id number] Electrotype Molder: Domenica Velázquez MD NRBC Automated 0.0 per 100 WBC Normal 0.0 [facility] Comment on above: Performed By: #### C DP, CP #### [facility] [address] [place], [place] [phone] Electrotype Molder: Domenica Velázquez MD Platelet mean volume (Bld) [Entitic vol] 10.0 fL Normal 8.1-13.5 [facility] Comment on above: Performed By: #### C DP, CP #### [facility] [address] [place], [place] [id number] Electrotype Molder: Domenica Velázquez MD Platelets (Bld) [#/Vol] 452 10*3/uL Normal 138-453 [facility] Comment on above: Performed By: #### C DP, CP #### [facility] [address] [place], [facility]83 Electrotype Molder: Domenica Velázquez MD RBC (Bld) [#/Vol] 4.91 10*6/uL Normal 3.95-5.11 [facility] Comment on above: Performed By: #### C DP, CP #### [address] [place], [place] [address]83 Electrotype Molder: Domenica Velázquez MD WBC (Bld) [#/Vol] 13.4 10*3/uL High 3.5-11.3 [facility] Comment on above: Performed By: #### C DP, CP #### [facility] [address] [place] [address] Electrotype Molder: Domenica Velázquez MD [facility] Albumin [Mass/Vol] 4.4 g/dL 3.5 - 5.2 g/dL [facility] Albumin/Globulin [Mass ratio] 1.3 {ratio} 1.0 - 2.[address] [facility] ALP [Catalytic activity/Vol] 87 U/L 35 - 104 U/L [facility] ALT [Catalytic activity/Vol] 25 U/L 10 - 35 U/L [facility] Anion gap [Moles/Vol] 11 mmol/L 9 - 16 mmol/L [facility] AST [Catalytic activity/Vol] 17 U/L 10 - 35 U/L [facility] Bilirubin [Mass/Vol] mg/dL 0.00 - 1.20 mg/dL [facility] Calcium [Mass/Vol] 9.9 mg/dL 8.6 - 10. 4 mg/dL [facility] Chloride [Moles/Vol] 101 mmol/L 98 - 10 7 mmol/L [facility] CO2 [Moles/Vol] 25 mmol/L 20 - 31 mmol/L [facility] Creatinine [Mass/Vol] 0.7 mg/dL 0.50 - 0.90 mg/dL [facility] Est, Glokeith Delgadot Rate - PINF [facility] Comment on above: These results [...] 112 mg/dL High 74 - 99 mg/dL [facility] Interpretation and review of laboratory results Abnormal [facility] Potassium [Moles/Vol] 4.2 mmol/L 3.7 - 5.3 mmol/L [facility] Protein [Mass/Vol] 7.8 g/dL 6.6 - 8.7 g/dL [facility] Sodium [Moles/Vol] 137 mmol/L 136 - 145 mmol/L [facility] Urea nitrogen [Mass/Vol] 24 mg/dL High 6 - 20 mg/dL [facility] Urea nitrogen/Creatinine [Mass ratio] 34 mg/mg High 9 - 20 [facility] Comp Metabolic Profon 2023 Albumin [Mass/Vol] 4.4 g/dL Normal 3.5-5.2 [facility] Comment on above: Performed By: #### C DP, CP #### [facility] [address] [place], [place] [address] Electrotype Molder: Domenica Velázquez MD Albumin/Glob Ratio 1.3 Normal 1.0-2.5 [facility] Comment on above: Performed By: #### C DP, CP #### [facility] [address] [place], [place] [phone] Electrotype Molder: Domenica Velázquez MD Alkaline Phos 87 U/L Normal 35-104 [facility] Comment on above: Performed By: #### C DP, CP #### [facility] [address] [place], [place] [address] Electrotype Molder: Domenica Velázquez MD ALT [Catalytic activity/Vol] 25 U/L Normal 10-35 [facility] Comment on above: Performed By: #### C DP, CP #### [facility] [address] [place], [place] [address] Electrotype Molder: Domenica Velázquez MD Anion gap [Moles/Vol] 11 mmol/L Normal 9-16 [facility] Comment on above: Performed By: #### C DP, CP #### [facility] [address] [place] [address] [place] [address] Electrotype Molder: Domenica Velázquez MD AST [Catalytic activity/Vol] 17 U/L Normal 10-35 [facility] Comment on above: Performed By: #### C DP, CP #### [facility] [address] [place], [place] [address]83 Electrotype Molder: Domenica Velázquez MD Bilirubin [Mass/Vol] mg/dL Normal 0.00-1.20 [facility] Comment on above: Performed By: #### C DP, CP #### [facility] [address] [place] [address] Electrotype Molder: Domenica Velázquez MD BUN/CRE Ratio 34 High 9-20 [facility] Comment on above: Performed By: #### C DP, CP #### [facility] [address] [place] [address] Electrotype Molder: Domenica Velázquez MD Calcium [Mass/Vol] 9.9 mg/dL Normal 8.6-10.4 [facility] Comment on above: Performed By: #### C DP, CP #### [facility] [address] [place] [address] Electrotype Molder: Domenica Velázquez MD Chloride [Moles/Vol] 101 mmol/L Normal 98-107 [facility] Comment on above: Performed By: #### C DP, CP #### [facility] [address] [place] [address] Electrotype Molder: Domenica Velázquez MD CO2 [Moles/Vol] 25 mmol/L Normal 20-31 [facility] Comment on above: Performed By: #### C DP, CP #### [facility] [address] [place] [address] Electrotype Molder: Domenica Velázquez MD Creatinine [Mass/Vol] 0.7 mg/dL Normal 0.50-0.90 [facility] Comment on above: Performed By: #### C DP, CP #### [facility] [address] [place] [address] Electrotype Molder: Domencia Velázquez MD GFR/1.73 sq M.predicted among [...] Performed By: #### C DP, CP #### [facility] [address] [place], [place] [id number] Electrotype Molder: Domenica Velázquez MD Glucose [Mass/Vol] 112 mg/dL High 74-99 [facility] Comment on above: Performed By: #### C DP, CP #### [facility] [address] [place] [address] Electrotype Molder: Domenica Velázquez MD Potassium [Moles/Vol] 4.2 mmol/L Normal 3.7-5.3 [facility] Comment on above: Performed By: #### C MANUELA, CP #### [address] [place], [place] [address] Electrotype Molder: Domenica Velázquez MD Protein [Mass/Vol] 7.8 g/dL Normal 6.6-8.7 [facility] Comment on above: Performed By: #### C DP, CP #### [address] [place], [place] [address]83 Electrotype Molder: Domenica Velázquez MD Sodium [Moles/Vol] 137 mmol/L Normal 136-145 [facility] Comment on above: Performed By: #### C DP, CP #### [address] [place] [address] Electrotype Molder: Domenica Velázquez MD Urea nitrogen [Mass/Vol] 24 mg/dL High 6-20 [facility] Comment on above: Performed By: #### C DP, CP #### [address] [place], [place] [address]83 Electrotype Molder: Domenica Velázquez MD Microscopic Urinalysison Bacteria LM Ql (Urine sed) 1+ Abnormal None [facility] Epithelial cells LM.HPF (Urine sed) [#/Area] 0 TO [address] [facility] Interpretation and review of laboratory results Abnormal [facility] Mucus Ql (Urine sed) TRACE Abnormal None [facility] RBC LM.HPF (Urine sed) [#/Area] 0 TO [address] [facility] WBC LM.HPF (Urine sed) [#/Area] None [facility] TSHon 01-13-2024 TSH Qn 1.57 m[IU]/L [facility] Thyroid Stim. Horm.on 2023 Thyroid Stim. Horm. 1.57 uIU/mL Normal 0.27-4.20 [facility] Comment on above: Performed By: #### T SH #### [facility] [address] [place] [address] Electrotype Molder: Domenica Velázquez MD UA w/Reflex Cultureon 2023 Bilirubin, SemiQt,Ur Negative Normal NEG [facility] Comment on above: Performed By: #### L IVP #### [facility] [address] [place] [address] Electrotype Molder: Domenica Velázquez MD Blood, Urine Negative Normal NEG [facility] Comment on above: Performed By: #### L IVP #### [facility] [address] [place] [address] Electrotype Molder: Domenica Velázquez MD Clarity (U) Clear Normal CLEAR [facility] Comment on above: Performed By: #### L IVP #### [facility] [address] [place] [address] Electrotype Molder: Domenica Velázquez MD Color (U) Yellow Normal YEL [facility] Comment on above: Performed By: #### L IVP #### [facility] [address] [place] [address] Electrotype Molder: Domenica Velázquez MD Glucose Ql (U) 3+ mg/dL Abnormal NEG [facility] Comment on above: Performed By: #### L IVP #### [facility] [address] [place] [address] Dr[address] [place], [place] 9998883 Electrotype Molder: Domenica Velázquez MD Ketones Ql (U) Negative Normal NEG [facility] Comment on above: Performed By: #### L IVP #### [facility] [address] [place] [address] Dr[address] [place], [place] [id number] Electrotype Molder: Domenica Velázquez MD Leukocyte esterase Test strip Ql (U) Negative Normal NEG [facility] Comment on above: Performed By: #### L IVP #### [address] [place] [address] Electrotype Molder: Domenica Velázquez MD Nitrite,Ur Negative Normal NEG [facility] Comment on above: Performed By: #### L IVP #### [facility] [address] [place] [address] Dr[address] [place], [place] [id number] Electrotype Molder: Domenica Velázquez MD PH,Ur 6.0 Normal 5.0-9.0 [facility] Comment on above: Performed By: #### L IVP #### [address] [place], [place] [address]59[address]83 Electrotype Molder: Domenica Velázquez MD Protein Ql (U) Negative Normal NEG [facility] Comment on above: Performed By: #### L IVP #### [facility] [address] [place] [address] Dr[address] [place], [place] 5703083 Electrotype Molder: Domenica Velázquez MD Spec. [place],Ur >1.030 High 1.010-1.02 0 [facility] Comment on above: Performed By: #### L IVP #### [address] [place] [address] Electrotype Molder: Domenica Velázquez MD Urobilinogen,Ur Normal Normal 0.0-1.0 [facility] Comment on above: Performed By: #### L IVP #### [facility] [address] [place] [address] Electrotype Molder: Domenica Velázquez MD Urinalysis with Reflex to Cu ltureon 01-13-2024 Bilirubin Ql (U) Negative NEGATIVE [facility] Clarity (U) Clear Clear [facility] Color (U) Yellow Yellow [facility] Glucose Test strip (U) [Mass/Vol] 3+ Abnormal NEGATIVE mg/dL [facility] Hemoglobin Auto test strip Ql (U) Negative NEGATIVE [facility] Interpretation and review of laboratory results Abnormal [facility] Ketones (U) [Mass/Vol] Negative NEGATIVE mg/dL [facility] Leukocyte esterase Test strip Ql (U) Negative NEGATIVE [facility] Nitrite Ql (U) Negative NEGATIVE [facility] pH (U) 6.0 [pH] 5.0 - 9.[address] [facility] Protein (U) [Mass/Vol] Negative NEGATIVE mg/dL [facility] Specific gravity (U) [Rel density] High 1.010 - 1.[address] [facility] Urobilinogen Qn (U) Normal 0.0 - 1. 0 EU/dL [facility] Urinalysis,Microon 4 Bacteria 1+ Abnormal NONE [facility] Comment on above: Performed By: #### L IVP #### [facility] [address] [place] [address] Electrotype Molder: Domenica Velázquez MD Epithelial cells LM Ql (Urine sed) 0 TO 2 Normal 0-25 [facility] Comment on above: Performed By: #### L IVP #### [facility] [address] [place] [address] Electrotype Molder: Domenica Velázquez MD Mucus Strands TRACE Abnormal NONE [facility] Comment on above: Performed By: #### L IVP #### [facility] [address] [place] [address] Electrotype Molder: Domenica Velázquez MD Urine RBC's 0 TO 2 Normal 0-2 [facility] Comment on above: Performed By: #### L IVP #### [facility] [address] [place] [address] Electrotype Molder: Domenica Velázquez MD Urine WBC's None Normal 0-5 [facility] Comment on above: Performed By: #### L IVP #### [facility] [address] [place] [address] Electrotype Molder: Domenica Velázquez MD BASIC METABOLIC PANLon 12-20 Anion gap [Moles/Vol] 10 mmol/L Normal 5-15 [facility] Comment on above: Performed By: #### C BCA, BMP, FEPR, 2276-4 #### [facility] ([id number]) [address] [place] [address] Calcium [Mass/Vol] 8.9 mg/dL Normal 8.5-10.5 [facility] Comment on above: Performed By: #### C BCA, BMP, FEPR, 2276-4 #### [facility] ([id number]) [address] [place] [address] Chloride [Moles/Vol] 106 mmol/L Normal 98-[address] [facility] Comment on above: Performed By: #### C BCA, BMP, FEPR, 2276-4 #### [facility] ([id number]) [address] [place] [address] CO2 [Moles/Vol] 22 mmol/L Normal 22-32 [facility] Comment on above: Performed By: #### C BCA, BMP, FEPR, 2276-4 #### [facility] ([id number]) [address] [place] [address] Creatinine [Mass/Vol] 0.70 mg/dL Normal 0.40-1.00 [facility] Comment on above: Result Comment: METH OD TRACEABLE TO IDMS STANDARD Performed By: #### C BCA, BMP, FEPR, 2276-4 #### [facility] ([id number]) [address] [place] [address] eGFR (CKD-EPI) NON-RACE DEPENDENT >90 Normal >59 [facility] Comment on above: Result Comment: Reported eGFR is based on the CKD-EPI 2020 equation that does not use a race coefficient. Performed By: #### C BCA, BMP, FEPR, 2276-4 #### [facility] ([id number]) [address] [place] [address] Glucose [Mass/Vol] 89 mg/dL Normal 65-99 [facility] Comment on above: Performed By: #### C BCA, BMP, FEPR, 6-4 #### [facility] ([id number]) [address] [place] [address] Potassium [Moles/Vol] 4.2 mmol/L Normal 3.5-5.0 [facility] Comment on above: Performed By: #### C BCA, BMP, FEPR, 2276-4 #### [facility] ([id number]) [address] [place] [address] Sodium [Moles/Vol] 138 mmol/L Normal 134-146 [facility] Comment on above: Performed By: #### C BCA, BMP, FEPR, 6-4 #### [facility] ([id number]) [address] [place] [address] Urea nitrogen [Mass/Vol] 18 mg/dL Normal 5-23 [facility] Comment on above: Performed By: #### C BCA, BMP, FEPR, 2276-4 #### [facility] ([id number]) [address] [address] CBC AND AUTO DIFFon 10-21-20 24 ABSOLUTE BASOPHIL 0.0 X10E9/L Normal 0.0-0.2 [facility] Comment on above: Performed By: #### C BCA, BMP, FEPR, 2275- #### [facility] ([id number]) [address] [address] ABSOLUTE NEUTROPHIL 5.7 X10E9/L Normal 1.5-6.[address] [facility] Comment on above: Performed By: #### C BCA, BMP, FEPR, 2275- #### [facility] ([id number]) [address] [address] Basophils/100 WBC (Bld) 0.4 % Normal [facility] Comment on above: Performed By: #### C BCA, BMP, FEPR, 2275- #### [facility] ([id number]) [address] [address] Eosinophils (Bld) [#/Vol] 0.1 10*3/uL Normal 0.0-0.4 [facility] Comment on above: Performed By: #### C BCA, BMP, FEPR, 2275-06 #### [facility] ([id number]) [address] [address] Eosinophils/100 WBC (Bld) 1.2 % Normal [facility] Comment on above: Performed By: #### C BCA, BMP, FEPR, 2275- #### [facility] ([id number]) [address] [address] Erythrocyte distribution width (RBC) [Ratio] 14.4 % Normal 11.5-15.0 [facility] Comment on above: Performed By: #### C BCA, BMP, FEPR, 2275- #### [facility] ([id number]) [address] [address] [place] [address] Hematocrit (Bld) [Volume fraction] 37.4 % Normal 35-47 [facility] Comment on above: Performed By: #### C BCA, BMP, FEPR, 6-4 #### [facility] ([id number]) [address] [address] [place] [address] Hemoglobin (Bld) [Mass/Vol] 12.4 g/dL Normal 11.7-15.5 [facility] Comment on above: Performed By: #### C BCA, BMP, FEPR, 2275-4 #### [facility] ([id number]) [address] [address] [place] [address] Lymphocytes (Bld) [#/Vol] 2.4 10*3/uL Normal 1.0-3.5 [facility] Comment on above: Performed By: #### C BCA, BMP, FEPR, 2275-4 #### [facility] ([id number]) [address] [address] [place] [address] Lymphocytes/100 WBC (Bld) 28.1 % Normal [facility] Comment on above: Performed By: #### C BCA, BMP, FEPR, 2275-4 #### [facility] ([id number]) [address] [address] [place] [address] MCH (RBC) [Entitic mass] 28.8 pg Normal 27-34 [facility] Comment on above: Performed By: #### C BCA, BMP, FEPR, 6-4 #### [facility] ([id number]) [address] [address] [place] [address] MCHC (RBC) [Mass/Vol] 33.1 g/dL Normal 32-36 [facility] Comment on above: Performed By: #### C BCA, BMP, FEPR, 6-4 #### [facility] ([id number]) [address] [place] [address] MCV (RBC) [Entitic vol] 87 fL Normal 80-100 [facility] Comment on above: Performed By: #### C BCA, BMP, FEPR, 2275-4 #### [facility] ([id number]) [address] [place] [address] Monocytes (Bld) [#/Vol] 0.3 10*3/uL Normal 0-0.9 [facility] Comment on above: Performed By: #### C BCA, BMP, FEPR, 2275- #### [facility] ([id number]) [address], [facility] [address] [place] [address] Monocytes/100 WBC (Bld) 3.0 % Normal [facility] Comment on above: Performed By: #### C BCA, BMP, FEPR, 2275- #### [facility] ([id number]) [address] [place] [address] Neutrophils/100 WBC (Bld) 67.3 % Normal [facility] Comment on above: Performed By: #### C BCA, BMP, FEPR, 2275-4 #### [facility] ([id number]) [address] [place] [address] Platelet mean volume (Bld) [Entitic vol] 8.8 fL Normal 7-12 [facility] Comment on above: Performed By: #### C BCA, BMP, FEPR, 2275- #### [facility] ([id number]) [address] [place] [address] Platelets (Bld) [#/Vol] 325 10*3/uL Normal 150-450 [facility] Comment on above: Performed By: #### C BCA, BMP, FEPR, 2275- #### [facility] ([id number]) [address] [place] [address] RBC COUNT 4.31 X10E12/L Normal 3.80-5.20 [facility] Comment on above: Performed By: #### C BCA, BMP, FEPR, 6-4 #### [facility] ([id number]) [address], [facility] [address] [place] [address] WBC (Bld) [#/Vol] 8.4 10*3/uL Normal 4.0-11.0 [facility] Comment on above: Performed By: #### C BCA, BMP, FEPR, 6-4 #### [facility] ([id number]) [address], [facility] [address] [place] [address] FERRITINon 12-21-2023 Ferritin [Mass/Vol] 195 ng/mL Normal 11-307 [facility] Comment on above: Performed By: #### C BCA, CMP, 63624-2, TSHR #### [facility] ([id number]) [address] [place] [address] IRON PROFILEon 12-21-2023 Iron [Mass/Vol] 53 ug/dL Normal 50-170 [facility] Comment on above: Performed By: #### C BCA, BMP, FEPR, 6-4 #### [facility] ([id number]) [address], [facility] [address] [place] [address] IRON BINDING 374 ug/dL Normal 250-425 [facility] Comment on above: Performed By: #### C BCA, BMP, FEPR, 6-4 #### [facility] ([id number]) [address] [place] [address] IRON SATURATION 14 % SATURATION Low 15-[address] [facility] Comment on above: Performed By: #### C BCA, BMP, FEPR, 2276-4 #### [facility] ([id number]) [address] [place] [address] CT ABDOMEN PELVIS W IV CONTR Dar 08-07-2024 CT ABDOMEN PELVIS W IV CONTRAST EXAMINATION: [...] significant stool or gas noted. Evidence of [id number] diverticulosis of proximal sigmoid colon and descending [...] above: Performed By: #### L IVP #### [facility] [address] [place] [address] [place] [address] Electrotype Molder: Domenica Velázquez MD Albumin/Glob Ratio 1.4 Normal 1.0-2.5 [facility] Comment on above: Performed By: #### L IVP #### [facility] [address] [place] [address] Electrotype Molder: Domenica Velázquez MD Alkaline Phos 85 U/L Normal 35-104 [facility] Comment on above: Performed By: #### L IVP #### [facility] [address] [place] [address] [place] [address] Electrotype Molder: Domenica Velázquez MD ALT [Catalytic activity/Vol] 12 U/L Normal 5-33 [facility] Comment on above: Performed By: #### L IVP #### [facility] [address] [place], [place] 5382783 Electrotype Molder: Domenica Velázquez MD Anion gap [Moles/Vol] 11 mmol/L Normal 9-17 [facility] Comment on above: Performed By: #### L IVP #### [facility] [address] [place], [place] 3645283 Electrotype Molder: Domenica Velázquez MD AST [Catalytic activity/Vol] 14 U/L Normal <32 [facility] Comment on above: Performed By: #### L IVP #### [facility] [address] [place], [place] 1718483 Electrotype Molder: Domenica Velázquez MD Bilirubin [Mass/Vol] 0.2 mg/dL Low 0.3-1.2 [facility] Comment on above: Performed By: #### L IVP #### [facility] [address] [place], [place] 075[address]83 Electrotype Molder: Domenica Velázquez MD BUN/CRE Ratio 30 High 9-20 [facility] Comment on above: Performed By: #### L IVP #### [facility] [address] [place], [place] 2138683 Electrotype Molder: Domenica Velázquez MD Calcium [Mass/Vol] 8.8 mg/dL Normal 8.6-10.4 [facility] Comment on above: Performed By: #### L IVP #### [facility] [address] [place], [place] 799[address]83 Electrotype Molder: Domenica Velázquez MD Chloride [Moles/Vol] 103 mmol/L Normal 98-107 [facility] Comment on above: Performed By: #### L IVP #### [facility] [address] [place], [place] 1884883 Electrotype Molder: Domenica Velázquez MD CO2 [Moles/Vol] 25 mmol/L Normal 20-31 [facility] Comment on above: Performed By: #### L IVP #### [facility] [address] [place] [address] Electrotype Molder: Domenica Velázquez MD Creatinine [Mass/Vol] 0.6 mg/dL Normal 0.5-0.9 [facility] Comment on above: Performed By: #### L IVP #### [facility] [address] [place] [address] Electrotype Molder: Domenica Velázquez MD GFR/1.73 sq M.predicted among [...] renal tubular secretion. Performed By: #### L IVP #### [facility] [address] [place] [address] [place] [address] Electrotype Molder: Domenica Velázquez MD Glucose [Mass/Vol] 92 mg/dL Normal 70-99 [facility] Comment on above: Performed By: #### L IVP #### [facility] [address] [place] [address] Electrotype Molder: Domenica Velázquez MD Potassium [Moles/Vol] 3.6 mmol/L Low 3.7-5.3 [facility] Comment on above: Performed By: #### L IVP #### [facility] [address] [place] [address] Electrotype Molder: Domenica Velázquez MD Protein [Mass/Vol] 7.0 g/dL Normal 6.4-8.3 [facility] Comment on above: Performed By: #### L IVP #### [facility] [address] [place], [place] 618[address]83 Electrotype Molder: Domenica Velázquez MD Sodium [Moles/Vol] 139 mmol/L Normal 135-144 [facility] Comment on above: Performed By: #### L IVP #### [facility] [address] [place], [place] 527[address]83 Electrotype Molder: Domenica Velázquez MD Urea nitrogen [Mass/Vol] 18 mg/dL Normal 6-20 [facility] Comment on above: Performed By: #### L IVP #### [facility] [address] [place], [place] 9234583 Electrotype Molder: Domenica Velázquez MD Lipaseon 10-07-2023 Lipase [Catalytic activity/Vol] 28 U/L Normal 13-60 [facility] Comment on above: Performed By: #### L IVP #### [facility] [address] [place], [place] 1721083 Electrotype Molder: Domenica Velázquez MD Troponinon 10-07-2023 Troponin, High Sens <6 Normal 0-14 [facility] Comment on above: Result Comment: High Sensitivity Troponin values cannot be compared with other Troponin methodologies. Performed By: #### L IVP #### [facility] [address] [place], [place] [address]67[address]83 Electrotype Molder: Domenica Velázquez MD CBC with Diffon 10-06-2023 Abs. Basophil 0.03 k/uL Normal 0.00-0.20 [facility] Comment on above: Performed By: #### L IVP #### [facility] [address] [place], [place] 318[address]83 Electrotype Molder: Domenica Velázquez MD Abs.Imm.Granulocyte 0.03 k/uL Normal 0.00-0.30 [facility] Comment on above: Performed By: #### L IVP #### [facility] [address] [place], [facility]83 Electrotype Molder: Domenica Velázquez MD Abs.Neutrophil (Seg) 6.50 k/uL Normal 1.50-8.10 [facility] Comment on above: Performed By: #### L IVP #### [facility] [address] [place] [address] Dr[place], [facility]83 Electrotype Molder: Domenica Velázquez MD Basophils/100 WBC (Bld) 0 % Normal 0-2 [facility] Comment on above: Performed By: #### L IVP #### [address] [place], [facility]83 Electrotype Molder: Domenica Velázquez MD Eosinophils (Bld) [#/Vol] 0.08 10*3/uL Normal 0.00-0.44 [facility] Comment on above: Performed By: #### L IVP #### [address] [place], [facility]83 Electrotype Molder: Domenica Velázquez MD Eosinophils/100 WBC (Bld) 1 % Normal 1-4 [facility] Comment on above: Performed By: #### L IVP #### [address] [place], [facility]83 Electrotype Molder: Domenica Velázquez MD Erythrocyte distribution width (RBC) [Ratio] 13.5 % Normal 11.8-14.4 [facility] Comment on above: Performed By: #### L IVP #### [address] [place], [facility]83 Electrotype Molder: Domenica Velázquez MD Hematocrit (Bld) [Volume fraction] 40.1 % Normal 36.3-47.1 [facility] Comment on above: Performed By: #### L IVP #### [address] [place] [address] Electrotype Molder: Domenica Velázquez MD Hemoglobin (Bld) [Mass/Vol] 13.4 g/dL Normal 11.9-15.1 [facility] Comment on above: Performed By: #### L IVP #### [facility] [address] [place] [address] Electrotype Molder: Domenica Velázquez MD Immature granulocytes/100 WBC (Bld) 0 % Normal 0 [facility] Comment on above: Performed By: #### L IVP #### [facility] [address] [place] [address] Electrotype Molder: Domenica Velázquez MD Lymphocytes (Bld) [#/Vol] 2.41 10*3/uL Normal 1.10-3.70 [facility] Comment on above: Performed By: #### L IVP #### [address] [place] [address] Electrotype Molder: Domenica Velázquez MD Lymphocytes/100 WBC (Bld) 25 % Normal 24-43 [facility] Comment on above: Performed By: #### L IVP #### [address] [place] [address] Electrotype Molder: Domenica Velázquez MD MCH (RBC) [Entitic mass] 28.6 pg Normal 25.2-33.5 [facility] Comment on above: Performed By: #### L IVP #### [address] [place] [address] Electrotype Molder: Domenica Velázquez MD MCHC (RBC) [Mass/Vol] 33.4 g/dL Normal 28.4-34.8 [facility] Comment on above: Performed By: #### L IVP #### [address] [place] [address] Electrotype Molder: Domenica Velázquez MD MCV (RBC) [Entitic vol] 85.7 fL Normal 82.6-102.9 [facility] Comment on above: Performed By: #### L IVP #### [facility] [address] [place], [place] 2972283 Electrotype Molder: Domenica Velázquez MD Monocytes (Bld) [#/Vol] 0.69 10*3/uL Normal 0.10-1.20 [facility] Comment on above: Performed By: #### L IVP #### [facility] [address] [place], [place] 459[address]83 Electrotype Molder: Domenica Velázquez MD Monocytes/100 WBC (Bld) 7 % Normal 3-12 [facility] Comment on above: Performed By: #### L IVP #### [facility] [address] [place], [place] [id number] Electrotype Molder: Domenica Velázquez MD Neutrophil (Seg) 67 % High 36-65 [facility] Comment on above: Performed By: #### L IVP #### [facility] [address] [place], [place] 615[address]83 Electrotype Molder: Domenica Velázquez MD NRBC Automated 0.0 per 100 WBC Normal 0.0 [facility] Comment on above: Performed By: #### L IVP #### [address] [place], [place] [address]38[address]83 Electrotype Molder: Domenica Velázquez MD Platelet mean volume (Bld) [Entitic vol] 10.5 fL Normal 8.1-13.5 [facility] Comment on above: Performed By: #### L IVP #### [facility] [address] [place] [address] [place] [place], [place] 549[address]83 Electrotype Molder: Domenica Velázquez MD Platelets (Bld) [#/Vol] 292 10*3/uL Normal 138-453 [facility] Comment on above: Performed By: #### L IVP #### [address] [place], [place] [id number] Electrotype Molder: Domenica Velázquez MD RBC (Bld) [#/Vol] 4.68 10*6/uL Normal 3.95-5.11 [facility] Comment on above: Performed By: #### L IVP #### [facility] [address] [place] [address]164883 Electrotype Molder: Domenica Velázquez MD WBC (Bld) [#/Vol] 9.7 10*3/uL Normal 3.5-11.3 [facility] Comment on above: Performed By: #### L IVP #### [facility] [address] [place] [address] [place] 539[address]83 Electrotype Molder: Domenica Velázquez MD Basic Metabolic Profon 10-04 Anion gap [Moles/Vol] 10 mmol/L Normal 9-17 [facility] Comment on above: Performed By: #### D BASIA, BMP, CDP, TROPI #### [address] [place], [place] 515[address]83 Electrotype Molder: Domenica Velázquez MD BUN/CRE Ratio 23 High 9-20 [facility] Comment on above: Performed By: #### D BASIA, BMP, CDP, TROPI #### [address] [place], [place] [address]67[address]83 Electrotype Molder: Domenica Velázquez MD Calcium [Mass/Vol] 8.9 mg/dL Normal 8.6-10.4 [facility] Comment on above: Performed By: #### D BASIA, BMP, CDP, TROPI #### [facility] [address] [place] [address] Dr[place], [place] 7643483 Electrotype Molder: Domenica Velázquez MD Chloride [Moles/Vol] 105 mmol/L Normal 98-107 [facility] Comment on above: Performed By: #### D BASIA, BMP, CDP, TROPI #### [facility] [address] [place] [address] [place] [address] Electrotype Molder: Domenica Velázquez MD CO2 [Moles/Vol] 26 mmol/L Normal 20-31 [facility] Comment on above: Performed By: #### D BASIA, BMP, CDP, TROPI #### [facility] [address] [place] [address] Electrotype Molder: Domenica Velázquez MD Creatinine [Mass/Vol] 0.6 mg/dL Normal 0.5-0.9 [facility] Comment on above: Performed By: #### D BASIA, BMP, CDP, TROPI #### [facility] [address] [place] [address] Electrotype Molder: Domenica Velázquez MD GFR/1.73 sq M.predicted among [...] #### D BASIA, BMP, CDP, TROPI #### [facility] [address] [place] [address] Electrotype Molder: Domenica Velázquez MD Glucose [Mass/Vol] 96 mg/dL Normal 70-99 [facility] Comment on above: Performed By: #### D BASIA, BMP, CDP, TROPI #### [facility] [address] [place] [address] Electrotype Molder: Domenica Velázquez MD Potassium [Moles/Vol] 3.8 mmol/L Normal 3.7-5.3 [facility] Comment on above: Performed By: #### D BASIA, BMP, CDP, TROPI #### [facility] [address] [place], [place] [id number] Electrotype Molder: Domenica Velázquez MD Sodium [Moles/Vol] 141 mmol/L Normal 135-144 [facility] Comment on above: Performed By: #### D BASIA, BMP, CDP, TROPI #### [facility] [address] [place], [facility]83 Electrotype Molder: Domenica Velázquez MD Urea nitrogen [Mass/Vol] 14 mg/dL Normal 6-20 [facility] Comment on above: Performed By: #### D BASIA, BMP, CDP, TROPI #### [facility] [address] [place] [id number] Electrotype Molder: Domenica Velázquez MD CBC with Diffon 10-05-2023 Abs. Basophil <0.03 Normal 0.00-0.20 [facility] Comment on above: Performed By: #### D BASIA, BMP, CDP, TROPI #### [address] [place], [place] 436[address]83 Electrotype Molder: Domenica Velázquez MD Abs.Imm.Granulocyte 0.03 k/uL Normal 0.00-0.30 [facility] Comment on above: Performed By: #### D BASIA, BMP, CDP, TROPI #### [facility] [address] [place] [address] Dr. [place], [facility]83 Electrotype Molder: Domenica Velázquez MD Abs.Neutrophil (Seg) 5.10 k/uL Normal 1.50-8.10 [facility] Comment on above: Performed By: #### D BASIA, BMP, CDP, TROPI #### [facility] [address] [place], [place] 1665383 Electrotype Molder: Domenica Velázquez MD Basophils/100 WBC (Bld) 0 % Normal 0-2 [facility] Comment on above: Performed By: #### D BASIA, BMP, CDP, TROPI #### [facility] [address] [place], [place] [id number] Electrotype Molder: Domenica Velázquez MD Eosinophils (Bld) [#/Vol] 0.11 10*3/uL Normal 0.00-0.44 [facility] Comment on above: Performed By: #### D BASIA, BMP, CDP, TROPI #### [facility] [address] [place], [place] 3700483 Electrotype Molder: Domenica Velázquez MD Eosinophils/100 WBC (Bld) 1 % Normal 1-4 [facility] Comment on above: Performed By: #### D BASIA, BMP, CDP, TROPI #### [address] [place] [address]83 Electrotype Molder: Domenica Velázquez MD Erythrocyte distribution width (RBC) [Ratio] 13.5 % Normal 11.8-14.4 [facility] Comment on above: Performed By: #### D BASIA, BMP, CDP, TROPI #### [address] [place], [place] 5508083 Electrotype Molder: Domenica Velázquez MD Hematocrit (Bld) [Volume fraction] 42.6 % Normal 36.3-47.1 [facility] Comment on above: Performed By: #### D BASIA, BMP, CDP, TROPI #### [address] [place], [facility]83 Electrotype Molder: Domenica Velázquez MD Hemoglobin (Bld) [Mass/Vol] 14.1 g/dL Normal 11.9-15.1 [facility] Comment on above: Performed By: #### D BASIA, BMP, CDP, TROPI #### [address] [place], [place] 065[address]83 Electrotype Molder: Domenica Velázquez MD Immature granulocytes/100 WBC (Bld) 0 % Normal 0 [facility] Comment on above: Performed By: #### D BASIA, BMP, CDP, TROPI #### [facility] [address] [place], [place] 0381183 Electrotype Molder: Domenica Velázquez MD Lymphocytes (Bld) [#/Vol] 2.42 10*3/uL Normal 1.10-3.70 [facility] Comment on above: Performed By: #### D BASIA, BMP, CDP, TROPI #### [facility] [address] [place], [facility]83 Electrotype Molder: Domenica Velázquez MD Lymphocytes/100 WBC (Bld) 30 % Normal 24-43 [facility] Comment on above: Performed By: #### D BASIA, BMP, CDP, TROPI #### [address] [place], [facility]83 Electrotype Molder: Domenica Velázquez MD MCH (RBC) [Entitic mass] 28.8 pg Normal 25.2-33.5 [facility] Comment on above: Performed By: #### Smiley ABSIA, BMP, CDP, TROPI #### [address] [place], [facility]83 Electrotype Molder: Domenica Velázquez MD MCHC (RBC) [Mass/Vol] 33.1 g/dL Normal 28.4-34.8 [facility] Comment on above: Performed By: #### D BASIA, BMP, CDP, TROPI #### [address] [place], [facility]83 Electrotype Molder: Domenica Velázquez MD MCV (RBC) [Entitic vol] 87.1 fL Normal 82.6-102.9 [facility] Comment on above: Performed By: #### D BASIA, BMP, CDP, TROPI #### [facility] [address] [place] [address] Electrotype Molder: Domenica Velázquez MD Monocytes (Bld) [#/Vol] 0.53 10*3/uL Normal 0.10-1.20 [facility] Comment on above: Performed By: #### D BASIA, BMP, CDP, TROPI #### [facility] [address] [place], [place] 4840883 Electrotype Molder: Domenica Velázquez MD Monocytes/100 WBC (Bld) 7 % Normal 3-12 [facility] Comment on above: Performed By: #### D BASIA, BMP, CDP, TROPI #### [facility] [address] [place], [place] 5888383 Electrotype Molder: Domenica Velázquez MD Neutrophil (Seg) 62 % Normal 36-65 [facility] Comment on above: Performed By: #### D BASIA, BMP, CDP, TROPI #### [address] [place], [place] 8284883 Electrotype Molder: Domenica Velázquez MD NRBC Automated 0.0 per 100 WBC Normal 0.0 [facility] Comment on above: Performed By: #### Smiley BASIA, BMP, CDP, TROPI #### [address] [place], [place] 1780583 Electrotype Molder: Domenica Velázquez MD Platelet mean volume (Bld) [Entitic vol] 10.9 fL Normal 8.1-13.5 [facility] Comment on above: Performed By: #### Smiley BASIA, BMP, CDP, TROPI #### [facility] [address] [place] [address] [place] [address] Electrotype Molder: Domenica Velázquez MD Platelets (Bld) [#/Vol] 296 10*3/uL Normal 138-453 [facility] Comment on above: Performed By: #### D BASIA, BMP, CDP, TROPI #### [facility] [address] [place] [address] Electrotype Molder: Domenica Velázquez MD RBC (Bld) [#/Vol] 4.89 10*6/uL Normal 3.95-5.11 [facility] Comment on above: Performed By: #### D BASIA, BMP, CDP, TROPI #### [facility] [address] [place] [address] Electrotype Molder: Domenica Velázquez MD WBC (Bld) [#/Vol] 8.2 10*3/uL Normal 3.5-11.3 [facility] Comment on above: Performed By: #### D BASIA, BMP, CDP, TROPI #### [facility] [address] [place], [place] 3037583 Electrotype Molder: Domenica Velázquez MD CT CHEST PULMONARY EMBOLISM [...] D-Dimer Test 0.30 ug/mL FEU Normal 0.00-0.59 [facility] Comment on above: Result Comment: When [...] #### D BASIA, BMP, CDP, TROPI #### [facility] [address] [place] [address] Electrotype Molder: Domenica Velázquez MD Liver Profileon 10-05-2023 Albumin [Mass/Vol] 4.4 g/dL Normal 3.5-5.2 [facility] Comment on above: Performed By: #### L IVP #### [facility] [address] [place] [address] Electrotype Molder: Domenica Velázquez MD Albumin/Glob Ratio 1.4 Normal 1.0-2.5 [facility] Comment on above: Performed By: #### L IVP #### [facility] [address] [place] [address] Electrotype Molder: Domenica Velázquez MD Alkaline Phos 99 U/L Normal 35-104 [facility] Comment on above: Performed By: #### L IVP #### [facility] [address] [place] [address] Electrotype Molder: Domenica Velázquez MD ALT [Catalytic activity/Vol] 13 U/L Normal 5-33 [facility] Comment on above: Performed By: #### L IVP #### [facility] [address] [place], [place] 9660583 Electrotype Molder: Domenica Velázquez MD AST [Catalytic activity/Vol] 16 U/L Normal <32 [facility] Comment on above: Performed By: #### L IVP #### [facility] [address] [place], [place] 5645183 Electrotype Molder: Domenica Velázquez MD Bilirubin [Mass/Vol] 0.2 mg/dL Low 0.3-1.2 [facility] Comment on above: Performed By: #### L IVP #### [facility] [address] [place] [address] [place] [address] Electrotype Molder: Domenica Velázquez MD Bilirubin, Indirect Can not be calculated Normal 0.0-1 .0 [facility] Comment on above: Performed By: #### L IVP #### [facility] [address] [place] [address] Dr. [place], [place] 9[address]1983 Electrotype Molder: Domenica Velázquez MD Bilirubin.indirect [Mass/Vol] mg/dL Normal <0.3 [facility] Comment on above: Performed By: #### L IVP #### [facility] [address] [place] [address] Electrotype Molder: Domenica Velázquez MD Protein [Mass/Vol] 7.5 g/dL Normal 6.4-8.3 [facility] Comment on above: Performed By: #### L IVP #### [facility] [address] [place] [address] Electrotype Molder: Domenica Velázquez MD Troponinon 10-05-2023 Troponin, High Sens <6 Normal 0-14 [facility] Comment on above: Result Comment: High Sensitivity Troponin values cannot be compared with other Troponin methodologies. Performed By: #### T ROPI #### [facility] [address] [place], [place] 7380283 Electrotype Molder: Domenica Velázquez MD Troponin, High Sens <6 Normal 0-14 [facility] Comment on above: Result Comment: High Sensitivity Troponin values cannot be compared with other Troponin methodologies. Performed By: #### D BASIA, BMP, CDP, TROPI #### [facility] [address] [place], [place] 5798383 Electrotype Molder: Domenica Velázquez MD XR CHEST PORTABLEon 10-05-19 [...] contras ton 04-20-2023 Radiology Study observation (narrative) [facility] CT Head WO contraston 2023 Radiology Study observation (narrative) [facility] No Panel Informationon 04-[address] abnormal ity identified in the brain. No acute osseous abnormality identified in the cervical spine. [facility] RIS CONSOLIDATED EXAMINATION: CT OF THE [...] There is no prevertebral soft tissue swelling. [facility] Andi Montoya MD - [...] 03-27-2023 Glucose [Mass/Vol] 151 mg/dL High 65-99 [facility] CBC AND AUTO DIFFon 03-16-19 24 ABSOLUTE BASOPHIL 0.0 X10E9/L Normal 0.0-0.2 [facility] Comment on above: Performed By: #### C BCA, CMP, 63848-8, TSHR #### [facility] ([id number]) [address] [place] [address] ABSOLUTE NEUTROPHIL 7.7 X10E9/L High 1.5-6.[address] [facility] Comment on above: Performed By: #### C ADITYA CMP, 28237-3, TSHR #### [facility] ([id number]) [address] [place] [address] Basophils/100 WBC (Bld) 0.3 % Normal [facility] Comment on above: Performed By: #### C ADITYA CMP, 38886-1, TSHR #### [facility] ([id number]) [address], [address] [place] [address] Eosinophils (Bld) [#/Vol] 0.1 10*3/uL Normal 0.0-0.4 [facility] Comment on above: Performed By: #### Terrell BURGESS, CMP, 74443-6, TSHR #### [facility] ([id number]) [address] [address] [place] [address] Eosinophils/100 WBC (Bld) 1.1 % Normal [facility] Comment on above: Performed By: #### Terrell BURGESS CMP, 75472-7, TSHR #### [facility] ([id number]) [address] [place] [address] Erythrocyte distribution width (RBC) [Ratio] 14.6 % Normal 11.5-15.0 [facility] Comment on above: Performed By: #### Terrell BURGESS CMP, 05516-3, TSHR #### [facility] ([id number]) [address] [place] [address] Hematocrit (Bld) [Volume fraction] 45.7 % Normal 35-47 [facility] Comment on above: Performed By: #### Terrell BCA, CMP, 77554-2, TSHR #### [facility] ([id number]) [address] [place] [address] Hemoglobin (Bld) [Mass/Vol] 15.0 g/dL Normal 11.7-15.5 [facility] Comment on above: Performed By: #### C JAHAIRA BURGESS, 85968-1, TSHR #### [facility] ([id number]) [address] [place] [address] Lymphocytes (Bld) [#/Vol] 2.4 10*3/uL Normal 1.0-3.5 [facility] Comment on above: Performed By: #### Terrell BURGESS CMP, 37066-7, TSHR #### [facility] ([id number]) [address] [place] [address] Lymphocytes/100 WBC (Bld) 22.1 % Normal [facility] Comment on above: Performed By: #### Terrell BURGESS CMP, 78330-9, TSHR #### [facility] ([id number]) [address] [place] [address] MCH (RBC) [Entitic mass] 29.0 pg Normal 27-34 [facility] Comment on above: Performed By: #### Terrell BURGESS CMP, 40435-7, TSHR #### [facility] ([id number]) [address] [place] [address] MCHC (RBC) [Mass/Vol] 32.8 g/dL Normal 32-36 [facility] Comment on above: Performed By: #### Terrell BURGESS CMP, 37483-3, TSHR #### [facility] ([id number]) [address] [place] [address] MCV (RBC) [Entitic vol] 88 fL Normal 80-100 [facility] Comment on above: Performed By: #### Terrell BURGESS CMP, 57757-9, TSHR #### [facility] ([id number]) [address] [place] [address] Monocytes (Bld) [#/Vol] 0.6 10*3/uL Normal 0-0.9 [facility] Comment on above: Performed By: #### C ADITYA, CMP, 74187-6, TSHR #### [facility] ([id number]) [address] [place] [address] Monocytes/100 WBC (Bld) 5.7 % Normal [facility] Comment on above: Performed By: #### C BCA, CMP, 48083-7, TSHR #### [facility] ([id number]) [address] [place] [address] Neutrophils/100 WBC (Bld) 70.8 % Normal [facility] Comment on above: Performed By: #### C ADITYA, CMP, 81359-1, TSHR #### [facility] ([id number]) [address] [place] [address] Platelet mean volume (Bld) [Entitic vol] 9.7 fL Normal 7-12 [facility] Comment on above: Performed By: #### C ADITYA, CMP, 17148-6, TSHR #### [facility] ([id number]) [address] [place] [address] Platelets (Bld) [#/Vol] 303 10*3/uL Normal 150-450 [facility] Comment on above: Performed By: #### C ADITYA, CMP, 98198-1, TSHR #### [facility] ([id number]) [address] [place] [address] RBC COUNT 5.17 X10E12/L Normal 3.80-5.20 [facility] Comment on above: Performed By: #### C BCA, CMP, 64312-6, TSHR #### [facility] ([id number]) [address] [place] [address] WBC (Bld) [#/Vol] 10.9 10*3/uL Normal 4.0-11.0 [facility] Comment on above: Performed By: #### C BCA, CMP, 78454-5, TSHR #### [facility] ([id number]) [address] [place] [address] COMPREHENSIVE METABOLIC PANE Dirk 03-16-2023 Albumin [Mass/Vol] 4.7 g/dL Normal 3.2-5.3 [facility] Comment on above: Performed By: #### C BCA, CMP, 48630-2, TSHR #### [facility] ([id number]) [address] [place] [address] ALP [Catalytic activity/Vol] 74 U/L Normal 39-130 [facility] Comment on above: Performed By: #### C BCA, CMP, 91898-7, TSHR #### [facility] ([id number]) [address] [place] [address] ALT [Catalytic activity/Vol] 22 U/L Normal 0-31 [facility] Comment on above: Performed By: #### C BCA, CMP, 59107-7, TSHR #### [facility] ([id number]) [address] [place] [address] Anion gap [Moles/Vol] 12 mmol/L Normal 5-15 [facility] Comment on above: Performed By: #### C BCA, CMP, 18160-3, TSHR #### [facility] ([id number]) [address] [place] [address] AST [Catalytic activity/Vol] 20 U/L Normal 0-41 [facility] Comment on above: Performed By: #### C BCA, CMP, 99329-5, TSHR #### [facility] ([id number]) [address] [place] [address] Bilirubin [Mass/Vol] 0.5 mg/dL Normal 0.3-1.[address] [facility] Comment on above: Performed By: #### C BCA, CMP, 47590-8, TSHR #### [facility] ([id number]) [address] [place] [address] Calcium [Mass/Vol] 9.9 mg/dL Normal 8.5-10.5 [facility] Comment on above: Performed By: #### C ADITYA, CMP, 48184-4, TSHR #### [facility] ([id number]) [address] [place] [address] Chloride [Moles/Vol] 105 mmol/L Normal 98-[address] [facility] Comment on above: Performed By: #### C JAHAIRA BURGESS, 61260-7, TSHR #### [facility] ([id number]) [address] [place] [address] CO2 [Moles/Vol] 25 mmol/L Normal 22-32 [facility] Comment on above: Performed By: #### C JAHAIRA BURGESS, 09441-1, TSHR #### [facility] ([id number]) [address] [place] [address] Creatinine [Mass/Vol] 0.74 mg/dL Normal 0.40-1.00 [facility] Comment on above: Result Comment: METH OD TRACEABLE TO IDMS STANDARD Performed By: #### C JAHAIRA BURGESS, 26723-3, TSHR #### [facility] ([id number]) [address] [place] [address] eGFR (CKD-EPI) NON-RACE DEPENDENT >90 Normal >59 [facility] Comment on above: Result Comment: Reported eGFR is based on the CKD-EPI 2020 equation that does not use a race coefficient. Performed By: #### C BCA, CMP, 62757-0, TSHR #### [facility] ([id number]) [address] [address] [place] [address] Glucose [Mass/Vol] 143 mg/dL High 65-99 [facility] Comment on above: Performed By: #### C BCA, CMP, 23038-4, TSHR #### [facility] ([id number]) [address] [place] [address] Potassium [Moles/Vol] 3.8 mmol/L Normal 3.5-5.0 [facility] Comment on above: Performed By: #### C BCA, CMP, 91545-7, TSHR #### [facility] ([id number]) [address] [place] [address] Protein [Mass/Vol] 7.8 g/dL Normal 6.0-8.0 [facility] Comment on above: Performed By: #### C BCA, CMP, 58861-1, TSHR #### [facility] ([id number]) [address] [place] [address] Sodium [Moles/Vol] 142 mmol/L Normal 134-146 [facility] Comment on above: Performed By: #### C BCA, CMP, 31535-4, TSHR #### [facility] ([id number]) [address] [place] [address] Urea nitrogen [Mass/Vol] 17 mg/dL Normal 5-23 [facility] Comment on above: Performed By: #### C BCA, CMP, 38810-4, TSHR #### [facility] ([id number]) [address] [place] [address] HGB A1C (GLYCO-HGB)on 2023 Glucose [Mass/Vol] 117 mg/dL Normal [facility] Comment on above: Performed By: #### C BCA, CMP, 17124-0, TSHR #### [facility] ([id number]) [address] [place] [address] HbA1c (Bld) [Mass fraction] 5.7 % High 4.4-5.6 [facility] Comment on above: Result Comment: NOTE ADA Guidelines Result HgbA1c Normal : less than 5.7 % Prediabetes : 5.7 % to 6.4 % Diabetes : > 6.4 % Use with caution in patients with abnormal hemoglobin variants as the half-life of red blood cells and in vivo glycation rates are affected. Performed By: #### C ADITYA, CMP, 51332-6, TSHR #### [facility] ([id number]) [address] [facility] [facility] [place] [address] Lipid 1996 panelon 4 Cholesterol [Mass/Vol] 132 mg/dL Low 150-200 [facility] Comment on above: Performed By: #### Terrell BURGESS, CMP, 73710-1, TSHR #### [facility] ([id number]) [address] [place] [address] Cholesterol in HDL [Mass/Vol] 58 mg/dL Normal >39 [facility] Comment on above: Result Comment: HDL <40 mg/dL - High Risk HDL > or = 40mg/dL- Desirable HDL >60 mg/dL - Negative Risk Performed By: #### C BCA, CMP, 15510-5, TSHR #### [facility] ([id number]) [address] [place] [address] Cholesterol in LDL [Mass/Vol] 51 mg/dL Normal <130 [facility] Comment on above: Result Comment: LDL <100 mg/dL - Desirable LDL >160 mg/dL - High Risk Performed By: #### C BCA, CMP, 28114-5, TSHR #### [facility] ([id number]) [address] [place] [address] Cholesterol in VLDL [Mass/Vol] 23 mg/dL Normal 0-30 [facility] Comment on above: Performed By: #### C BCA, CMP, 72957-3, TSHR #### [facility] ([id number]) [address] [place] [address] CHOLESTEROL:HDL 2.3 Normal 1.0-5.0 [facility] Comment on above: Performed By: #### C BCA, CMP, 17167-0, TSHR #### [facility] ([id number]) [address] [place] [address] Triglyceride [Mass/Vol] 114 mg/dL Normal 27-150 [facility] Comment on above: Performed By: #### C BCA, CMP, 29873-5, TSHR #### [facility] ([id number]) [address] [place] [address] MAMM SCREENING BILATERAL W C able bodied seaman 03-16-2023 MAMM SCREENING BILATERAL W CAD MAMM [...] 3:25 PM 0A a ADDITIONAL I Normal [facility] TSH WITH REFLEXon 03-16-2023 TSH 0.55 uIU/mL Normal 0.49-4.67 [facility] Comment on above: Performed By: #### C BCA, CMP, 45622-1, TSHR #### [facility] ([id number]) [address], [address] [place] [address] PT - Assessmentson 3 PT - Assessments [id number]#1.00CD:12 7 Normal [facility] ST - Assessmentson 3 ST - Assessments [id number]#1.00CD:127 Normal [facility] [place] 09-25-2022 Consent [id number]#1.00CD:127 Normal [facility] Outside Recordson 2022 Outside Records [id number]#1.00CD:127 Normal [facility] ST - Orderson 2022 ST - Orders [id number]#1.00CD:127 Normal [facility] ST - Orders [id number]#1.00CD:127 Normal [facility] ST - Otheron 2022 ST - Other [id number]#1.00CD:127 Normal [facility] PAP ACOG PANEL 2: 30 to 65on 05-27-2022 . . Normal [facility] Comment on above: Result Comment: Perf ormed at: WB Performed By: #### 4 [id number] #### [facility] [address] [place] [address] Dr. Do Aguilar Age Gdln ACOG Testing 30-65 Normal [facility] Comment on above: Performed By: #### 4 [id number] #### [facility] [address] [address] [address] Do Aguilar DIAGNOSIS: Comment Normal [facility] Comment on above: Result Comment: NEGA TIVE FOR INTRAEPITHELIAL LESION OR MALIGNANCY. Performed at: WB Performed By: #### 4 [id number] #### [facility] [address] [address] [address] Do Aguilar HPV Aptima Negative Normal Negative [facility] Comment on above: Result Comment: This nucleic acid amplification test detects fourteen high-risk HPV types (16,18,31,33,35,39,45,51,52,56,58,59,66,68) without differentiation. Performed at: =G Performed By: #### 4 [id number] #### [facility] [address] [place] [address] Dr. Do Aguilar HPV Genotype Reflex Comment Normal [facility] Comment on above: Result Comment: Crit eria not met, HPV Genotype not performed. Performed at: WB Performed By: #### 4 [id number] #### [facility] [address] [place] [address] Dr. Do Aguilar Methodology: Comment Normal [facility] Comment on above: Result Comment: This liquid based ThinPrep(R) pap test was screened with the use of an image guided system. Performed at: WB Performed By: #### 4 [id number] #### [facility] [address] [place] [address] Dr. Do Aguilar Note: Comment Normal [facility] Comment on above: Result Comment: The Pap smear is a screening test designed to aid in the detection of premalignant and malignant conditions of the uterine cervix. It is not a diagnostic procedure and should not be used as the sole means of detecting cervical cancer. Both false-positive and false-negative reports do occur. . Performed at: WB Performed By: #### 4 [id number] #### [facility] [address] [address] [address] Do Aguilar Performed by: Comment Normal [facility] Comment on above: Result Comment: Melissa Ramachandran, Rn Neurosurgical (ASCP) Performed at: WB Performed By: #### 4 [id number] #### [facility] [address] [address] [address] Do Aguilar Specimen adequacy: Comment Normal [facility] Comment on above: Result Comment: Sati sfactory for evaluation. Endocervical and/or squamous metaplastic cells (endocervical component) are present. Performed at: WB Performed By: #### 4 [id number] #### [facility] [address] [address] [address] Do Aguilar HEPATITIS C AB CASCADE TO QU ANT PCR GENOon 02-18-2022 HCV AB <0.1 Normal 0.0-0.9 [facility] Comment on above: Performed By: #### H EPCASC #### [facility] [address] [place] [address] Dr. Do Aguilar Interpretation: Comment Normal [facility] Comment on above: Result Comment: Nega tive Not infected with HCV, unless recent infection is suspected or other evidence exists to indicate HCV infection. Performed By: #### H EPCASC #### [facility] [address] [place] [address] Dr. Do Aguilar LIVER PROFILEon 02-17-2022 Albumin [Mass/Vol] 3.6 g/dL Normal 3.4-5.0 [facility] Comment on above: Performed By: #### L IVER #### [facility] [address] [place] [address] Dr. Do Aguilar Albumin/Globulin [Mass ratio] 0.9 {ratio} Normal [facility] Comment on above: Performed By: #### L IVER #### [facility] [address] [place] [address] Dr. Do Aguilar ALP [Catalytic activity/Vol] 79 U/L Normal 46-116 [facility] Comment on above: Performed By: #### L IVER #### [facility] [address] [address] [address] Do Aguilar ALT [Catalytic activity/Vol] 51 U/L Normal 14-59 [facility] Comment on above: Performed By: #### L IVER #### [facility] [address] [address] [address] Do Aguilar AST [Catalytic activity/Vol] 33 U/L Normal 15-37 [facility] Comment on above: Performed By: #### L IVER #### [facility] [address] [address] [address] Do Aguilar BILI, CONJUGATED 0.1 mg/dL Normal 0.0-0.2 [facility] Comment on above: Performed By: #### L IVER #### [facility] [address] [place] [address] Dr. Do Aguilar Bilirubin [Mass/Vol] 0.3 mg/dL Normal 0.2-1.0 [facility] Comment on above: Performed By: #### L IVER #### [facility] [address] [place] [address] Dr. Do Aguilar Globulin (S) [Mass/Vol] 4.2 g/dL Normal [facility] Comment on above: Performed By: #### L IVER #### [facility] [address] [place] [address] Dr. Do Aguilar Protein [Mass/Vol] 7.8 g/dL Normal 6.4-8.2 [facility] Comment on above: Performed By: #### L IVER #### [facility] [address] [place] [address] Dr. Do Aguilar TSHon 02-17-2022 TSH 0.457 uIU/mL Normal 0.358-3.74 0 [facility] Comment on above: Performed By: #### T SH #### [facility] [address] [place] [address] Dr. Do Aguilar VITAMIN B12on 02-17-2022 Cobalamin (Vitamin B12) [Mass/Vol] 1864.0 pg/mL Critically high 193.0-986. 0 [facility] Comment on above: Performed By: #### V ITB12 #### [facility] [address] [address] [address] Do Aguilar History and Physicalon 12-04 History and Physical [id number]#1.00[facility] Operative Report - Surgeon/P godwin 12-04-2016 Operative Report - Surgeon/Physician [id number]#[address] Coding Summaryon 11-26-2016 Coding Summary CODING DATE: 017 [facility] STATUS: Home PAYOR: Medicaid HMO ADMIT DX: REASON FOR VISIT DX: R10.13 Epigastric pain R10.11 Right upper quadrant pain FINAL DX: PRINCIPAL: K29.70 Gastritis, unspecified, without bleeding SECONDARY: PROCEDURES DOCTOR NAME DATE 33130 EsophagogastroduodenTed mena Richard MD 11/21/2016 flexible, transoral; with biopsy, single or multiple NOTE: The code number assigned matches the documented diagnosis and / or procedure in the patient's chart. However, the narrative phrase printed from the coding software may appear abbreviated, or result in slightly different terminology. Coded By: Rosalba Laureano Date Saved: 11/26/2016 01:09 pm [facility] Consent Formson 11-24-2016 Consent Forms [id number]#[address] [place] [address] Intraoperative Noteon 2016 Intraoperative Note [id number]#[address] [place] [address] Intraoperative Note [id number]#[address] Operative Report - Surgeon/P godwin 11-24-2016 [...] in two weeks.Juan Ramon Jean M.D.JOB #: [id number]: 11/21/2016T: 11/21/2016[Electronically Signed on: 12/03/2016 07:09 EDT] Juan Ramon Jean MD Generated Domain User for [id number][Verified on: 12/03/2016 07:09 EDT] Juan Ramon Jean MD[Transcribed on: 11/21/2016 11:37 EDT][facility] Telemetry Stripson 7 Telemetry Strips [id number]#1.00OTGTIFF [facility] Telemetry Strips [id number]#1.00OTGTIFF [facility] H. Pylori Gastricon 11-22-19 17 H. Pylori Rico Int Ctrl Pass Normal [facility] Comment on above: Order Comment: H. (A NTRUM) Result Comment: Pass Performed By: #### 2 [id number] ####[facility] (DEFAULT)[address] [place] [address] H. Pylori Gastric Negative Normal Negative [facility] Comment on above: Order Comment: H. (A NTRUM) Result Comment: Nega tive Performed By: #### 2 [id number] ####[facility] (DEFAULT)[address] [place] [address] Inpatient Clinical Summaryon 11-21-2016 Inpatient Clinical Summary [facility] SURGERYClinical Discharge SummaryPERSON INFORMATIONName KARMA SR Age 36 Years 80Sex FEMALE Language Armenian PCP DEFRANCE, DAVIDMarital Status [facility] Service Ambulatory SurgeryN [id number] Acct# Arrival 11/21/16 07:22:21Visit Reason EGD - EPIGASTRIC ABDOMINAL PAIN Acuity LOS 013 23:19Address:[address] [facility] [id number]:PROVIDER INFORMATIONVITALS INFORMATIONVital Sign Triage LatestTemp OralTemp Temporal 36.4 DegC 36.4 DegCTemp IntravascularTemp AxillaryTemp [id number] Sat 100 % 97 %Respiratory Rate 16 [...] Disposition:Discharge Location:DEPART REASON INCOMPLETE INFORMATIONPATIENT EDUCATION INFORMATIONInstructions:Fo racquel up:With: Address: When:Juan Ramon Jean [address] [place] [address] [facility] (1) Within 2 to 4 weeksComments:Call for follow up appointmentWith: Address: When:DOMENICA [facility] [place] [address] [facility] (1)DIAGNOSISAcute gastritisComment:PHYS DOC NOTES Normal [facility] Inpatient Patient Summaryon 11-21-2016 Inpatient Patient Summary [address] [id number] patient Discharge InstructionsName: KARMA SRDOB: [birth year] Address: [address] [place] [address] Care Provider:Name: DOMENICA OLIVAPhone: Discharge Diagnosis: Acute [...] or business decisions or sign any legal documentsCincinnati Children'S Hospital [facility] Center would like to thank you for allowing us to assist you with your healthcare needs. The following includes patient education materials and information regarding your injury/illness.ASHLEY SRHER has been given the following list of follow-up instructions, prescriptions, and patient education materials:Follow-up InstructionsWith: Address: When:Juan Ramon Jean [address] [place] [address] [facility] (1) Within 2 to 4 weeksComments:Call for follow up appointmentWith: Address: When:DOMENICA Vaz [place], [place] [id number] [facility] (1)MedicationsDuring the course [...] the Answerwww.cdc.gov/getsmart GET SMART Know When Antibiotics Ebony.SNorth [facility] of Health and Human ServicesCleveland Clinic Medina Hospitalers for Disease Control and Prevention October 2013 [facility] MAGR Endo Intraoperative Rec ordon 11-21-2016 [facility] Endo Intraoperative Record [facility] Endo Intra-Op Record Summary Primary Physician: Juan Ramon Jean MD Finalized Date/Time: 11/21/16 08:37:38 Pt. Name: KARMA SR.O.B./Sex: 1980 FEMALE Med Rec #: [id number] Physician: Juan Ramon Jean MD Financial #: [id number] Pt. Type: D Room/Bed: / Admit/Disch: 11/21/16 [...] Jane RN Role Performed Surgeon - Primary Auto Crane Driver Auto Crane Driver Time In 11/21/16 08:06:00 11/21/16 08:06:00 11/21/16 [...] Unfinalizing Freetext Reason for Unfinalizing 11/21/16 08:37 [facility] Mod[facility] Pick List Normal [facility] MAGR Endo Postoperative Benjamin rdon 11-21-2016 [facility] Endo Postoperative Record MAG[facility] Endo Phase II Record Summary Primary Physician: Juan Ramon Jean MD Finalized Date/Time: 11/21/16 10:02:07 Pt. Name: KARMA SR /Sex: 1980 FEMALE Med Rec #: [id number] Physician: Juan Ramon Jean MD Financial #: [id number] Pt. Type: D Room/Bed: / Admit/Disch: 11/21/16 07:22:21 - Institution: [facility] II Case Times EN MAGR Pre-Care Text: [...] Signed By: Cammy Barroso RN 11/21/16 10:02 [facility] MAGR Endo Preoperative Recor don 11-21-2016 MAGR Endo Preoperative Record MAGR Endo Pre-Op Record Summary Primary Physician: Juan Ramon Jean MD Finalized Date/Time: 11/21/16 08:27:58 Pt. Name: KARMA SR /Sex: 1980 FEMALE Med Rec #: [id number] Physician: Juan Ramon Jean MD Financial #: [id number] Pt. Type: D Room/Bed: / Admit/Disch: 11/21/16 [...] Signed By: Cammy Barroso RN 11/21/16 08:27 [facility] Test Urine 1on U Preg Negative [facility] Comment on above: Result Comment: Nega tive Performed By: #### 3 [id number] ####[facility] (DEFAULT)[address] [place] [address] U Preg Internal Control Pass [facility] Comment on above: Result Comment: Pass Performed By: #### 3 [id number] ####[facility] (DEFAULT)[address] [place] [address] Vital Signs Date Time Vital Sign Value Performing Clinician Facility 08-08-2024 13:24-0400 Body height 160.02 cm Loreto Mcneal APRN Work Phone: [facility] 08-08-2024 13:24-0400 Body mass index (BMI) [Ratio] 39.8 kg/m2 Loreto Mcneal SAIL LAY OUT WORKER Work Phone: [facility] 08-08-2024 13:24-0400 Body weight 102.05 kg Loreto Mcneal SAIL LAY OUT WORKER Work Phone: [facility] 08-04-2024 10:45-0400 Body height 160 cm Cleo Zambrano MD Work Phone: [facility] 08-04-2024 10:45-0400 Body mass index (BMI) [Ratio] 41.45 kg/m2 Cleo Zambrano MD Work Phone: [facility] 08-04-2024 10:45-0400 Body weight 106.14 kg Cleo Zambrano MD Work Phone: [facility] 08-04-2024 10:45-0400 Diastolic blood pressure 70 mm[Hg] Cleo Zambrano MD Work Phone: [facility] 08-04-2024 10:45-0400 Heart rate 87 /min Cleo Zambrano MD Work Phone: [facility] 08-04-2024 10:45-0400 Respiratory rate 16 /min Cleo Zambrano MD Work Phone: [facility] 08-04-2024 10:45-0400 SaO2% (BldA) [Mass fraction] 97 % Cleo Zambrano MD Work Phone: [facility] 08-04-2024 10:45-0400 Systolic blood pressure 112 mm[Hg] Cleo Zambrano MD Work Phone: [facility] 08-02-2024 08:42-0400 Body mass index (BMI) [Ratio] 40.48 kg/m2 Roel Garber DO Work Phone: [facility] 08-02-2024 08:42-0400 Body weight 103.65 kg Roel Shirlene DO Work Phone: [facility] 08-02-2024 08:42-0400 Diastolic blood pressure 76 mm[Hg] Roel Shirlene DO Work Phone: [facility] 08-02-2024 08:42-0400 Systolic blood pressure 122 mm[Hg] Roel Shirlene DO Work Phone: [facility] 07-16-2024 11:06-0400 SaO2% (BldA) [Mass fraction] 93 % Loretofer Mcneal SAIL LAY OUT WORKER - MANDARIN TEACHER [facility]: [facility] 07-16-2024 11:01-0400 Body height 160 cm Loretofer Mcneal SAIL LAY OUT WORKER - MANDARIN TEACHER Work Phone: [facility] 07-16-2024 11:01-0400 Body mass index (BMI) [Ratio] 38.97 kg/m2 Loretofer Mcneal SAIL LAY OUT WORKER - MANDARIN TEACHER Work Phone: [facility] [employer] 07-16-2024 11:01-0400 Body temperature 97.5 [degF] Loretofer Mcneal SAIL LAY OUT WORKER - MANDARIN TEACHER Work Phone: [facility] [employer] 07-16-2024 11:01-0400 Body weight 99.79 kg Loretofer Mcneal SAIL LAY OUT WORKER - MANDARIN TEACHER Work Phone: [employer] 07-16-2024 11:01-0400 Diastolic blood pressure 80 mm[Hg] Loretofer Mcneal SAIL LAY OUT WORKER - MANDARIN TEACHER Work Phone: [employer] 07-16-2024 11:01-0400 Heart rate 100 /min Loreto Mcneal SAIL LAY OUT WORKER - MANDARIN TEACHER Work Phone: [employer] 07-16-2024 11:01-0400 Respiratory rate 16 /min Loreto Mcneal SAIL LAY OUT WORKER - MANDARIN TEACHER Work Phone: [facility] [employer] 07-16-2024 11:01-0400 Systolic blood pressure 145 mm[Hg] Loreto Avaloschris SAIL LAY OUT WORKER - MANDARIN TEACHER Work Phone: [facility] 06-30-2024 09:56-0400 Diastolic blood pressure 92 mm[Hg] Roel Shirlene DO Work Phone: [facility] 06-30-2024 09:56-0400 Systolic blood pressure 128 mm[Hg] Roel Shirlene DO Work Phone: [facility] 06-13-2024 09:51-0400 Body height 160 cm Mendez Biedenlorrie DO Work Phone: [facility] 06-13-2024 09:51-0400 Body mass index (BMI) [Ratio] 40.74 kg/m2 Mendez Biedenbach DO Work Phone: [facility] 06-13-2024 09:51-0400 Body weight 104.33 kg Mendez Biedenbach DO Work Phone: [facility] 06-02-2024 09:30-0400 Body height 160.02 cm Rory Shammo CAGE MAKER MACHINE-BC Work Phone: [facility] 06-02-2024 09:30-0400 Body mass index (BMI) [Ratio] 38.7 kg/m2 Rory Shammo CAGE MAKER MACHINE-BC Work Phone: [facility] 06-02-2024 09:30-0400 Body weight 99.1 kg Rory Shammo CAGE MAKER MACHINE-BC Work Phone: [facility] 06-02-2024 09:30-0400 Diastolic blood pressure 74 mm[Hg] Rory Shammo CAGE MAKER MACHINE-BC Work Phone: [facility] 06-02-2024 09:30-0400 Systolic blood pressure 127 mm[Hg] Rory Shammo CAGE MAKER MACHINE-BC Work Phone: [facility] 05-26-2024 11:32-0400 Body mass index (BMI) [Ratio] 40.39 kg/m2 Roel Shirlene DO Work Phone: [facility] 05-26-2024 11:32-0400 Body weight 103.42 kg Roel Shirlene DO Work Phone: [facility] 05-26-2024 11:32-0400 Diastolic blood pressure 78 mm[Hg] Roel Shirlene DO Work Phone: [facility] 05-26-2024 11:32-0400 Systolic blood pressure 128 mm[Hg] Roel Shirlene DO Work Phone: [facility] 04-28-2024 10:28-0500 Body height 160 cm Mendez Biedenbach DO Work Phone: [facility] 04-28-2024 10:28-0500 Body mass index (BMI) [Ratio] 38.79 kg/m2 Mendez Biedenbach DO Work Phone: [facility] 04-28-2024 10:28-0500 Body weight 99.34 kg Mendez Biedenbach DO Work Phone: [facility] 04-18-2024 10:57-0500 Body mass index (BMI) [Ratio] 38.79 kg/m2 Roel Shirlene DO Work Phone: [facility] 04-18-2024 10:57-0500 Body weight 99.34 kg Roel Shirlene DO Work Phone: [facility] 04-18-2024 10:57-0500 Diastolic blood pressure 84 mm[Hg] Roel Shirlene DO Work Phone: [facility] 04-18-2024 10:57-0500 Systolic blood pressure 138 mm[Hg] Roel Shirlene DO Work Phone: [facility] 04-07-2024 10:31-0500 Body height 160 cm Cleo Zambrano MD Work Phone: [facility] 04-07-2024 10:31-0500 Body mass index (BMI) [Ratio] 39.33 kg/m2 Cleo Zambrano MD Work Phone: [facility] 04-07-2024 10:31-0500 Body weight 100.7 kg Cleo aZmbrano MD Work Phone: [facility] 04-07-2024 10:31-0500 Diastolic blood pressure 82 mm[Hg] Cleo Zambrano MD Work Phone: [facility] 04-07-2024 10:31-0500 Heart rate 107 /min Cleo Zambrano MD Work Phone: [facility] 04-07-2024 10:31-0500 Respiratory rate 16 /min Cleo Zambrano MD Work Phone: [facility] 04-07-2024 10:31-0500 SaO2% (BldA) [Mass fraction] 98 % Cleo Zambrano MD Work Phone: [facility] 04-07-2024 10:31-0500 Systolic blood pressure 122 mm[Hg] Cleo Zambrano MD Work Phone: [facility] 01-21-2024 09:35-0500 Body height 160.02 cm Rory Beebenj CAGE MAKER MACHINE-BC Work Phone: [facility] 01-21-2024 09:35-0500 Body mass index (BMI) [Ratio] 38.8 kg/m2 [facility] CAGE MAKER MACHINE-BC Work Phone: [facility] 01-21-2024 09:35-0500 Body weight 99.4 kg Rory Beebenj CAGE MAKER MACHINE-BC Work Phone: [facility] 01-13-2024 17:30-0500 Diastolic blood pressure 71 mm[Hg] Lisette Junior DO Work Phone: [facility] 01-13-2024 17:30-0500 Heart rate 95 /min Lisette Junior DO Work Phone: [facility] 01-13-2024 17:30-0500 SaO2% (BldA) [Mass fraction] 99 % Lisette Junior DO Work Phone: [facility] [employer] 01-13-2024 17:30-0500 Systolic blood pressure 131 mm[Hg] Lisette Junior DO Work Phone: [facility] [employer] 01-13-2024 15:30-0500 Respiratory rate 16 /min Lisette Junior DO Work Phone: [facility] [employer] 01-13-2024 14:24-0500 Body height 160 cm Lisette Junior DO Work Phone: [facility] [employer] 01-13-2024 14:24-0500 Body mass index (BMI) [Ratio] 37.55 kg/m2 Lisette Junior DO Work Phone: [facility] 01-13-2024 14:24-0500 Body temperature 98.1 [degF] Lisette Junior DO Work Phone: [facility] 01-13-2024 14:24-0500 Body weight 96.16 kg Lisette Junior DO Work Phone: [facility] 11-30-2023 11:10-0400 Body height 160 cm Brittany Neville MANDARIN TEACHER Work Phone: [facility] 11-30-2023 11:10-0400 Body mass index (BMI) [Ratio] 35.96 kg/m2 Brittany Neville MANDARIN TEACHER Work Phone: [facility] 11-30-2023 11:10-0400 Body weight 92.08 kg Brittany Neville MANDARIN TEACHER Work Phone: [facility] 11-30-2023 10:26-0400 Diastolic blood pressure 70 mm[Hg] Brittany Neville MANDARIN TEACHER Work Phone: [facility] 11-30-2023 10:26-0400 Heart rate 90 /min Brittany Neville MANDARIN TEACHER Work Phone: [facility] 11-30-2023 10:26-0400 SaO2% (BldA) [Mass fraction] 96 % Brittany Neville MANDARIN TEACHER Work Phone: [facility] 11-30-2023 10:26-0400 Systolic blood pressure 118 mm[Hg] Brittany Neville MANDARIN TEACHER Work Phone: [facility] 05-21-2023 11:22-0400 Body height 160.02 cm [facility] 05-21-2023 11:22-0400 Body mass index (BMI) [Ratio] 36.5 kg/m2 [facility] 05-21-2023 11:22-0400 Body weight 93.44 kg [facility] 05-21-2023 10:39-0400 Body height 160.02 cm [facility] 05-21-2023 10:39-0400 Body mass index (BMI) [Ratio] 36.5 kg/m2 [facility] 05-21-2023 10:39-0400 Body weight 93.49 kg [facility] 05-21-2023 10:39-0400 Diastolic blood pressure 77 mm[Hg] [facility] 05-21-2023 10:39-0400 Heart rate 105 /min [facility] 05-21-2023 10:39-0400 Respiratory rate 18 /min [facility] 05-21-2023 10:39-0400 SaO2% (BldA) [Mass fraction] 95 % [facility] 05-21-2023 10:39-0400 Systolic blood pressure 114 mm[Hg] [facility] 04-20-2023 12:41-0500 Body mass index (BMI) [Ratio] 36.49 kg/m2 Shawna Rumschlag DO Work Phone: [facility] 04-20-2023 12:41-0500 Body weight 93.44 kg Shawna Rumschlag DO Work Phone: [facility] 04-20-2023 12:41-0500 Diastolic blood pressure 76 mm[Hg] Shawna Rumschlag DO Work Phone: [facility] 04-20-2023 12:41-0500 Heart rate 83 /min Shawna Rumschlag DO Work Phone: [employer] 04-20-2023 12:41-0500 Respiratory rate 16 /min Shawna Rumschlag DO Work Phone: [facility] [employer] 04-20-2023 12:41-0500 SaO2% (BldA) [Mass fraction] 98 % Shawna Rumschlag DO Work Phone: [facility] [employer] 04-20-2023 12:41-0500 Systolic blood pressure 129 mm[Hg] Shawna Rumschlag DO Work Phone: [facility] [employer] 04-20-2023 12:39-0500 Body temperature 97.3 [degF] Shawna Rumschlag DO Work Phone: [facility] [employer] 03-18-2023 11:30-0500 Diastolic blood pressure 84 mm[Hg] MD Yo Blank Work Phone: [facility] 03-18-2023 11:30-0500 Heart rate 95 /min MD Yo Blank Work Phone: [facility] 03-18-2023 11:30-0500 Respiratory rate 16 /min MD Yo Blank Work Phone: [facility] 03-18-2023 11:30-0500 SaO2% (BldA) [Mass fraction] 99 % MD Yo Blank Work Phone: [facility] 03-18-2023 11:30-0500 Systolic blood pressure 123 mm[Hg] MD Yo Blank Work Phone: [facility] 03-05-2023 09:15-0500 Body height 160.02 cm Gayathri Adams Other [facility] Other 03-05-2023 09:15-0500 Body mass index (BMI) [Ratio] 37.57 kg/m2 Gayathri Adams Other [facility] Other 03-05-2023 09:15-0500 Body weight 96.21 kg Gayathri Scally Other [facility] Other 03-05-2023 09:15-0500 Diastolic blood pressure 89 mm[Hg] Gayathri Scally Other [facility] Other 03-05-2023 09:15-0500 Respiratory rate 18 /min Gayathri Scally Other [facility] Other 03-05-2023 09:15-0500 SaO2% (BldA) [Mass fraction] 96 % Gayathri Scally Other [facility] Other 03-05-2023 09:15-0500 Systolic blood pressure 122 mm[Hg] Gayathri Scally Other [facility] Other 03-02-2023 19:24-0500 Body height 160 cm Sil Sullivan DO Work Phone: [facility] 03-02-2023 19:24-0500 Body mass index (BMI) [Ratio] 36.31 kg/m2 Sil Sullivan DO Work Phone: [facility] 03-02-2023 19:24-0500 Body temperature 98.29 [degF] Sil Sullivan DO Work Phone: [facility] 03-02-2023 19:24-0500 Body weight 92.99 kg Sil Sullivan DO Work Phone: [facility] 03-02-2023 19:24-0500 Diastolic blood pressure 98 mm[Hg] Sil Sullivan DO Work Phone: [facility] 03-02-2023 19:24-0500 Heart rate 82 /min Sil Sullivan DO Work Phone: [facility] 03-02-2023 19:24-0500 Respiratory rate 18 /min Sil Sullivan DO Work Phone: [facility] 03-02-2023 19:24-0500 SaO2% (BldA) [Mass fraction] 98 % Sil Sullivan DO Work Phone: [facility] 03-02-2023 19:24-0500 Systolic blood pressure 139 mm[Hg] Sil Sullivan DO Work Phone: [facility] 02-05-2023 09:20-0500 Body height 160.02 cm Jan Garg Other [facility] Other 02-05-2023 09:20-0500 Body mass index (BMI) [Ratio] 36.66 kg/m2 Jan Garg Other [facility] Other 02-05-2023 09:20-0500 Body weight 93.9 kg Jan Garg Other [facility] Other 01-15-2023 09:45-0500 Body height 160.02 cm Gayathri Scally Other [facility] Other 01-15-2023 09:45-0500 Body mass index (BMI) [Ratio] 36.68 kg/m2 Gayathri Scally Other [facility] Other 01-15-2023 09:45-0500 Body weight 93.94 kg Gayathri Scally Other [facility] Other 01-15-2023 09:45-0500 Diastolic blood pressure 83 mm[Hg] Gayathri Scally Other [facility] Other 01-15-2023 09:45-0500 Respiratory rate 18 /min Gayathri Adams Other [facility] Other 01-15-2023 09:45-0500 SaO2% (BldA) [Mass fraction] 99 % Gayathri Adams Other [facility] Other 01-15-2023 09:45-0500 Systolic blood pressure 119 mm[Hg] Gayathri Adams Other [facility] Other 01-07-2023 10:00-0500 Body height 160.02 cm Jan Garg Other [facility] Other 01-07-2023 10:00-0500 Body mass index (BMI) [Ratio] 36.13 kg/m2 Jan Scovanner Other [facility] Other 01-07-2023 10:00-0500 Body weight 92.53 kg Jan Scovanner Other [facility] Other 01-07-2023 10:00-0500 Diastolic blood pressure 74 mm[Hg] Jan Scovanner Other [facility] Other 01-07-2023 10:00-0500 Systolic blood pressure 118 mm[Hg] Jan Scovanner Other [facility] Other 08-28-2022 09:00-0400 Body height 160.02 cm Tamar Sosa Other [facility] Other 08-28-2022 09:00-0400 Body mass index (BMI) [Ratio] 35.8 kg/m2 Tamar Fitt Other [facility] Other 08-28-2022 09:00-0400 Body weight 91.67 kg Tamar Fitt Other [facility] Other 07-29-2022 10:15-0400 Body height 160.02 cm Gayathri Scally Other [facility] Other 07-29-2022 10:15-0400 Body mass index (BMI) [Ratio] 35.18 kg/m2 Gayathri Scally Other [facility] Other 07-29-2022 10:15-0400 Body weight 90.08 kg Gayathri Scally Other [facility] Other 07-29-2022 10:15-0400 Diastolic blood pressure 84 mm[Hg] Gayathri Scally Other [facility] Other 07-29-2022 10:15-0400 Respiratory rate 18 /min Gayathri Scally Other [facility] Other 07-29-2022 10:15-0400 SaO2% (BldA) [Mass fraction] 99 % Gayathri Scally Other [facility] Other 07-29-2022 10:15-0400 Systolic blood pressure 127 mm[Hg] Gayathri Scally Other [facility] Other 05-20-2022 11:15-0400 Body height 160.02 cm Gayathri Scally Other [facility] Other 05-20-2022 11:15-0400 Body mass index (BMI) [Ratio] 34.52 kg/m2 Gayathri Scally Other [facility] Other 05-20-2022 11:15-0400 Body weight 88.41 kg Gayathri Scally Other [facility] Other 05-20-2022 11:15-0400 Diastolic blood pressure 82 mm[Hg] Gayathri Scally Other [facility] Other 05-20-2022 11:15-0400 Respiratory rate 18 /min Gayathri Scally Other [facility] Other 05-20-2022 11:15-0400 SaO2% (BldA) [Mass fraction] 97 % Gayathri Scally Other [facility] Other 05-20-2022 11:15-0400 Systolic blood pressure 121 mm[Hg] Gayathri Scally Other [facility] Other 04-08-2022 11:15-0500 Body height 160.02 cm Gayathri Scally Other [facility] Other 04-08-2022 11:15-0500 Body mass index (BMI) [Ratio] 34.49 kg/m2 Gayathri Scally Other [facility] Other 04-08-2022 11:15-0500 Body weight 88.32 kg Gayathri Scally Other [facility] Other 04-08-2022 11:15-0500 Diastolic blood pressure 77 mm[Hg] Gayathri Scally Other [facility] Other 04-08-2022 11:15-0500 Respiratory rate 18 /min Gayathri Scally Other [facility] Other 04-08-2022 11:15-0500 SaO2% (BldA) [Mass fraction] 98 % Gayathri Scally Other [facility] Other 04-08-2022 11:15-0500 Systolic blood pressure 110 mm[Hg] Gayathri Scally Other [facility] Other 04-08-2022 10:15-0500 Body height 160.02 cm Tamar Fitt Other [facility] Other 04-08-2022 10:15-0500 Body mass index (BMI) [Ratio] 34.49 kg/m2 Tamar Fitt Other [facility] Other 04-08-2022 10:15-0500 Body weight 88.32 kg Tamar Fitt Other [facility] Other 02-26-2022 10:00-0500 Body height 160.02 cm Tamar Fitt Other [facility] Other 02-25-2022 11:45-0500 Body height 160.02 cm Gayathri Scally Other [facility] Other 02-25-2022 11:45-0500 Body mass index (BMI) [Ratio] 36.63 kg/m2 Gayathri Scally Other [facility] Other 02-25-2022 11:45-0500 Body weight 93.8 kg Gayathri Scally Other [facility] Other 02-25-2022 11:45-0500 Diastolic blood pressure 78 mm[Hg] Gayathri Scally Other [facility] Other 02-25-2022 11:45-0500 Respiratory rate 18 /min Gayathri Scally Other [facility] Other 02-25-2022 11:45-0500 SaO2% (BldA) [Mass fraction] 97 % Gayathri Scally Other [facility] Other 02-25-2022 11:45-0500 Systolic blood pressure 109 mm[Hg] Gayathri Scally Other [facility] Other 01-14-2022 11:45-0500 Body height 160.02 cm Gayathri Scally Other [facility] Other 01-14-2022 11:45-0500 Body mass index (BMI) [Ratio] 39.37 kg/m2 Gayathri Scally Other [facility] Other 01-14-2022 11:45-0500 Body weight 100.84 kg Gayathri Scally Other [facility] Other 01-14-2022 11:45-0500 Diastolic blood pressure 88 mm[Hg] Gayathri Scally Other [facility] Other 01-14-2022 11:45-0500 Respiratory rate 18 /min Gayathri Scally Other [facility] Other 01-14-2022 11:45-0500 SaO2% (BldA) [Mass fraction] 97 % Gayathri Scally Other [facility] Other 01-14-2022 11:45-0500 Systolic blood pressure 124 mm[Hg] Gayathri Scally Other [facility] Other 12-04-2021 12:00-0400 Body height 160.02 cm Gayathri Scally Other [facility] Other 12-04-2021 12:00-0400 Body mass index (BMI) [Ratio] 39.73 kg/m2 Gayathri Scally Other [facility] Other 12-04-2021 12:00-0400 Body weight 101.74 kg Gayathri Scally Other [facility] Other 12-04-2021 12:00-0400 Diastolic blood pressure 74 mm[Hg] Gayathri Scally Other [facility] Other 12-04-2021 12:00-0400 Respiratory rate 18 /min Gayathri Scally Other [facility] Other 12-04-2021 12:00-0400 SaO2% (BldA) [Mass fraction] 95 % Gayathri Scally Other [facility] Other 12-04-2021 12:00-0400 Systolic blood pressure 110 mm[Hg] Gayathri Scally Other [facility] Other 10-29-2021 11:30-0400 Body height 160.02 cm Yo Blank Other [facility] Other 10-29-2021 11:30-0400 Body mass index (BMI) [Ratio] 38.61 kg/m2 Yo Blank Other [facility] Other 10-29-2021 11:30-0400 Body weight 98.88 kg Yo Blank Other [facility] Other 10-29-2021 11:30-0400 Diastolic blood pressure 74 mm[Hg] Yo Blank Other [facility] Other 10-29-2021 11:30-0400 Systolic blood pressure 111 mm[Hg] Yo Blank Other [facility] Other 10-22-2021 13:26-0400 Body temperature 97.2 [degF] Shawna Rumschlag DO Work Phone: [facility] 10-22-2021 13:26-0400 Diastolic blood pressure 71 mm[Hg] Shawna Rumschlag DO Work Phone: [facility] 10-22-2021 13:26-0400 Heart rate 85 /min Shawna Rumschlag DO Work Phone: [facility] 10-22-2021 13:26-0400 Respiratory rate 16 /min Shawna Rumschlag DO Work Phone: [facility] 10-22-2021 13:26-0400 SaO2% (BldA) [Mass fraction] 94 % Shawna Rumschlag DO Work Phone: [facility] 10-22-2021 13:26-0400 Systolic blood pressure 131 mm[Hg] Shawna Rumschlag DO Work Phone: [facility] 10-11-2021 23:48-0400 Body height 160 cm Daniel Adkins MD Work Phone: [facility] 10-11-2021 23:48-0400 Body mass index (BMI) [Ratio] 36.67 kg/m2 Daniel Adkins MD Work Phone: [facility] 10-11-2021 23:48-0400 Body temperature 98.6 [degF] Daniel Adkins MD Work Phone: [facility] 10-11-2021 23:48-0400 Body weight 93.89 kg Daniel Adkins MD Work Phone: [facility] 10-11-2021 23:48-0400 Diastolic blood pressure 88 mm[Hg] Daniel Adkins MD Work Phone: [facility] 10-11-2021 23:48-0400 Heart rate 97 /min Daniel Adkins MD Work Phone: [facility] 10-11-2021 23:48-0400 Respiratory rate 16 /min Daniel Adkins MD Work Phone: [facility] 10-11-2021 23:48-0400 SaO2% (BldA) [Mass fraction] 96 % Daniel Adkins MD Work Phone: [facility] 10-11-2021 23:48-0400 Systolic blood pressure 134 mm[Hg] Daniel Adkins MD Work Phone: [facility] Encounters Encounter Date Encounter Type Care Provider Facility Start: 08-08-2024 End: 08-08-2024 ambulatory Loreto Mcneal APRN Work Phone: [facility] Work Phone: Start: 08-08-2024 End: 08-08-2024 Patient encounter procedure Loreto Mcneal APRN Work Phone: [facility] Work Phone: Start: 08-04-2024 End: 08-04-2024 Bamboo flowsheet Cleo Zambrano MD Work Phone: [facility] Start: 08-04-2024 End: 08-04-2024 Bamboo flowsheet Cleo Zambrano MD Work Phone: [facility] Start: 08-04-2024 End: 08-04-2024 ambulatory CLEO ZAMBRANO Not Available Start: 08-04-2024 End: 08-04-2024 Office outpatient visit 25 minutes Cleo Zambrano MD Work Phone: [facility] Comment on above: Type 2 diabetes mien itus without complication, 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 (Primary Dx); Vitamin D deficiency; Weight gain; Encounter for dietary consultation; Hyperlipemia, mixed (CMS/HCC); Class 3 severe obesity due to excess calories without serious comorbidity with body mass index (BMI) of 40.0 to 44.9 in adult Start: 08-02-2024 End: 08-02-2024 Bamboo flowsheet Roel Shirlene DO Work Phone: [facility] Start: 08-02-2024 End: 08-02-2024 Bamboo flowsheet Roel Shirlene DO Work Phone: [facility] Start: 08-02-2024 End: 08-02-2024 ambulatory ROEL SHIRLENE Not Available Start: 08-02-2024 End: 08-02-2024 Office outpatient visit 15 minutes Roel Shirlene DO Work Phone: [facility] Comment on above: Itching with irritat ion; Nexplanon removal Start: 07-27-2024 End: 07-27-2024 Patient encounter procedure Loreto Mcneal APRN Work Phone: [facility] Work Phone: Start: 07-27-2024 End: 07-27-2024 ambulatory Loreto Mcneal APRN Work Phone: [facility] Work Phone: Start: 07-20-2024 End: 07-20-2024 Telephone encounter Cleo Zambrano MD Work Phone: [facility] Comment on above: Advice Only Start: 07-16-2024 End: 07-16-2024 Emergency department patient visit LORETO Jin [facility] Comment on above: Post-traumatic osteo arthritis of left ankle (Primary Dx); Midline low back pain without sciatica, unspecified chronicity Start: 06-30-2024 End: 06-30-2024 Patient encounter procedure Roel Shirlene DO Work Phone: [facility] Comment on above: Nexplanon removal Start: 06-30-2024 End: 06-30-2024 ambulatory ROEL GAUTHIERO Not Available Start: 06-27-2024 End: 06-27-2024 ambulatory Ugo Bourgeois MD Facility:[facility] Start: 06-20-2024 End: 06-20-2024 ambulatory [facility] Start: 06-13-2024 End: 06-13-2024 Bamboo flowsheet Mendez Cardoso DO Work Phone: [facility] Start: 06-13-2024 End: 06-13-2024 Bamboo flowsheet Mendez Cardoso DO Work Phone: [facility] Start: 06-13-2024 End: 06-13-2024 Office outpatient visit 15 minutes Mendez Cardoso DO Work Phone: [facility] Comment on above: Obstructive sleep ap austin (Primary Dx); Intolerance of continuous positive airway pressure (CPAP) ventilation; Class 3 severe obesity with serious comorbidity and body mass index (BMI) of 40.0 to 44.9 in adult, unspecified obesity type Start: 06-13-2024 End: 06-13-2024 ambulatory MENDEZ CARDOSO Not Available Start: 06-02-2024 End: 06-02-2024 ambulatory Rory Driver CAGE MAKER MACHINE-BC Work Phone: [facility] Work Phone: Start: 06-02-2024 End: 06-02-2024 Patient encounter procedure Rory Driver CAGE MAKER MACHINE-BC Work Phone: [facility] Work Phone: Start: 05-27-2024 End: 05-27-2024 Clinisync [...] mammogram Start: 05-26-2024 End: 05-26-2024 ambulatory ROEL SHIRLENE Not Available Start: 05-10-2024 End: 05-10-2024 ambulatory LAILA SANTOS Not Available Start: 05-09-2024 End: 05-09-2024 ambulatory Ugo Bourgeois MD Facility:[facility] Start: 04-28-2024 End: 04-28-2024 Office outpatient visit 25 minutes Mendez Cardoso DO Work Phone: [facility] Comment on above: Obstructive sleep ap austin (Primary Dx); Intolerance of continuous positive airway pressure (CPAP) ventilation; Body mass index 34.0-34.9, adult Start: 04-28-2024 End: 04-28-2024 ambulatory MENDEZ PASTRANACONSTANCELORRIE Not Available Start: 04-25-2024 End: 04-25-2024 Bamboo flowsheet Brittany Neville MANDARIN TEACHER Work Phone: [facility] Start: 04-25-2024 End: 04-25-2024 Bamboo flowsheet Brittany Neville MANDARIN TEACHER Work Phone: [facility] Start: 04-18-2024 End: 04-18-2024 Bamboo flowsheet Roel Shirlene DO Work Phone: [facility] Start: 04-18-2024 End: 04-18-2024 Bamboo flowsheet Roel Shirlene DO Work Phone: [facility] Start: 04-18-2024 End: 04-18-2024 Clinisync Result Encounter Roel Shirlene DO Work Phone: [facility] External Department Unsolicited Start: 04-18-2024 End: 04-18-2024 ambulatory ROEL SHIRLENE Not Available Start: 04-18-2024 End: 04-18-2024 Office outpatient visit 15 minutes Roel Shirlene DO Work Phone: [facility] Comment on above: Hormone imbalance; Hormone disorder; Toenail fungus Start: 04-13-2024 End: 04-14-2024 Telephone encounter Cleo Zambrano MD Work Phone: [facility] Comment on above: Prior Authorization Start: 04-07-2024 End: 04-07-2024 Bamboo flowsheet Cleo Zambrano MD Work Phone: [facility] Start: 04-07-2024 End: 04-07-2024 Bamboo flowsheet Cleo Zambrano MD Work Phone: [facility] Start: 04-07-2024 End: 04-07-2024 ambulatory CLEO ZAMBRANO Not Available Start: 04-07-2024 End: 04-07-2024 Office outpatient visit 25 minutes Cleo Zambrano MD Work Phone: [facility] Comment on above: Type 2 diabetes mine itus without complication, unspecified whether group home insulin use ([facility]) (Primary Dx); Vitamin D deficiency; Weight gain; Encounter for dietary consultation; Hyperlipemia, mixed ([facility]); Class 2 severe obesity due to excess calories with serious comorbidity and body mass index (BMI) of 39.0 to 39.9 in adult ([facility]) Start: 04-04-2024 Non-patient / Non-visit Rory Driver CAGE MAKER MACHINE-BC Work Phone: [facility] Work Phone: Start: 03-09-2024 End: 03-09-2024 ambulatory Rory Driver CAGE MAKER MACHINE-BC Work Phone: [facility] Work Phone: Start: 03-09-2024 End: 03-09-2024 Departed Referred Rory Driver CAGE MAKER MACHINE-BC Work Phone: [facility] Start: 02-29-2024 End: 03-03-2024 Refill Paula Sanderson MD Work Phone: [facility] Comment on above: Chronic rhinitis Start: 02-16-2024 End: 02-17-2024 Telephone encounter Cleo Zambrano MD Work Phone: [facility] Comment on above: Medication Problem Start: 02-09-2024 End: 02-09-2024 Subsequent hospital visit by physician Jan Olmstead PT [facility] Physical Therapy Start: 02-09-2024 ambulatory LORETO MCNEAL [facility] Start: 02-01-2024 End: 02-01-2024 ambulatory Ugo Bourgeois MD Facility:[facility] Start: 01-26-2024 End: 01-26-2024 ambulatory LORETO MCNEAL [facility] Start: 01-26-2024 End: 01-26-2024 Subsequent hospital visit by physician Tamar Silveira PT [facility] Physical Therapy Comment on above: Arrived Start: 01-21-2024 End: 01-21-2024 Patient encounter procedure Rory Driver CAGE MAKER MACHINE-BC Work Phone: [facility] Work Phone: Start: 01-13-2024 End: 01-13-2024 Emergency department patient visit Lisette Junior DO Work Phone: [facility] ED Comment on above: Dizziness (Primary D x) Start: 01-11-2024 End: 01-11-2024 ambulatory Ugo Bourgeois MD Facility:[facility] Start: 12-29-2023 End: 12-29-2023 Subsequent hospital visit by physician Tamar Silveira PT [facility] Physical Therapy Start: 12-21-2023 End: 12-21-2023 ambulatory [facility] Start: 12-15-2023 End: 12-15-2023 ambulatory LORETO FREDIS [facility] Start: 12-01-2023 End: 12-01-2023 [facility] Start: 11-30-2023 End: 11-30-2023 Bamboo flowsheet Brittany Neville MANDARIN TEACHER Work Phone: [facility] [address] Start: 11-30-2023 End: 11-30-2023 Bamboo flowsheet Brittany Neville MANDARIN TEACHER Work Phone: [facility] [address] Start: 11-30-2023 End: 11-30-2023 Telephone encounter Brittany Neville NP Work [facility] Start: 11-30-2023 End: 11-30-2023 ambulatory BRITTANY NEVILLE Not Available Start: 11-30-2023 End: 11-30-2023 Office outpatient visit 25 minutes Brittany Neville MANDARIN TEACHER [facility] [address] Comment on above: JADON (obstructive sle ep apnea) (Primary Dx); Tension headache; Chronic bilateral low back pain, unspecified whether sciatica present; Paresthesias Start: 11-17-2023 End: 11-17-2023 ambulatory [facility] Start: 11-17-2023 End: 11-17-2023 Subsequent hospital visit by physician Tamar Silveira PT [facility] Physical Therapy Comment on above: Arrived Start: 11-16-2023 End: 11-16-2023 ambulatory Ugo Bourgeois MD Facility:[facility] Start: 10-20-2023 End: 10-20-2023 ambulatory SHAWNA BOGDAN [facility] Start: 10-20-2023 End: 10-20-2023 Subsequent hospital visit by physician Jan Olmstead PT [facility] Physical Therapy Comment on above: Arrived Start: 10-08-2023 End: 10-08-2023 ambulatory ADAM PALMER [facility] Start: 10-06-2023 End: 10-07-2023 Emergency department patient visit [facility] Start: 10-05-2023 End: 10-05-2023 Emergency department patient visit [facility] Start: 10-05-2023 End: 10-05-2023 Emergency department patient visit [facility] Start: 09-22-2023 End: 09-22-2023 Subsequent hospital visit by physician Jan Olmstead PT [facility] Physical Therapy Start: 09-15-2023 End: 09-15-2023 ambulatory SHAWNA EDWARG [facility] Start: 09-07-2023 End: 09-07-2023 ambulatory SHAWNA EDWARG [facility] Start: 09-01-2023 End: 09-01-2023 ambulatory SHAWNA RUMNAFISAG [facility] Start: 08-26-2023 End: 08-26-2023 ambulatory SHAWNA EDWARG [facility] Start: 08-26-2023 End: 08-26-2023 Subsequent hospital visit by physician Kofi Villegas PT [facility] Physical Therapy Comment on above: Arrived Start: 08-21-2023 End: 08-21-2023 ambulatory SHAWNA RUMSCHLAG [facility] Start: 08-21-2023 End: 08-21-2023 Subsequent hospital visit by physician Jan Olmstead PT [facility] Physical Therapy Comment on above: Arrived Start: 08-13-2023 End: 08-13-2023 ambulatory LAILA SANTOS Not Available Start: 08-11-2023 End: 08-11-2023 [facility] Start: 08-11-2023 End: 08-11-2023 Subsequent hospital visit by physician Jan Olmstead PT [facility] Physical Therapy Comment on above: Arrived Start: 08-04-2023 End: 08-04-2023 ambulatory SHAWNA RUMSCHLAG [facility] Start: 07-29-2023 End: 07-29-2023 ambulatory SHAWNA RUMSCHLAG [facility] Start: 07-14-2023 End: 07-14-2023 Subsequent hospital visit by physician Rebecca Skinner PT [facility] Physical Therapy Start: 06-03-2023 ambulatory [facility] Start: 06-02-2023 End: 06-02-2023 ambulatory FORTINO Churchill MEENA [facility] Start: 05-25-2023 Patient encounter procedure Brittany Neville MANDARIN TEACHER Work Phone: [facility] Start: 05-21-2023 End: 05-21-2023 Patient encounter procedure [facility] Work Phone: Start: 05-21-2023 End: 05-21-2023 Patient encounter procedure [facility] Work Phone: Start: 05-06-2023 End: 05-06-2023 Subsequent hospital visit by physician Rojas Altamirano [employer] [facility] Physical Therapy Comment on above: Arrived Start: 04-28-2023 End: 04-28-2023 ambulatory GAURAV Brandyn SELLERS [facility] Start: 04-20-2023 End: 04-20-2023 Emergency department patient visit Shawna Dudley DO Work Phone: [facility] ED Comment on above: Closed head injury, initial encounter (Primary Dx); Fall due to slipping on ice or snow, initial encounter; Acute cervical myofascial strain, initial encounter Start: 03-27-2023 End: 03-27-2023 ambulatory ZAC HANNA [facility] Start: 03-18-2023 End: 03-18-2023 ambulatory Jan Garg Other [facility] Other Start: 03-18-2023 Telephone encounter Jan [facility] Start: 03-18-2023 Non-patient / Non-visit MD Selvin Blank Work Phone: [facility] Work Phone: Start: 03-17-2023 End: 03-17-2023 ambulatory Jan Garg Other [facility] Other Start: 03-17-2023 Telephone encounter Jan [facility] Start: 03-16-2023 Encounter for genera l adult medical examination without abnormal findings [facility] ([place], [place]) Start: 03-16-2023 End: 03-16-2023 ambulatory RORY [facility] Start: 03-10-2023 End: 03-10-2023 Subsequent hospital visit by physician Tamar [facility]ira [facility] Comment on above: Arrived Start: 03-05-2023 (FCCCWMNF/U) Weight Management f/u Gayathri Adams [facility] Start: 03-05-2023 End: 03-05-2023 ambulatory Gayathri Adams Other [facility] Other Start: 03-05-2023 Registered Recurring MD Monserrat Blank Work Phone: [facility] Work Phone: Start: 03-02-2023 End: 03-02-2023 Emergency department patient visit Sil Sullivan DO Work Phone: [facility] ED Comment on above: Constipation, unspec ified constipation type (Primary Dx) Start: 02-26-2023 End: 02-26-2023 ambulatory Jan Scmechellener Other [facility] Other Start: 02-26-2023 Telephone encounter Jan Covingtonner [facility] Start: 02-18-2023 End: 02-18-2023 ambulatory Jan Scovanner Other [facility] Other Start: 02-18-2023 Telephone encounter Jan Garg [facility] Start: 02-05-2023 End: 02-05-2023 ambulatory Jan Scovanner Other [facility] Other Start: 02-05-2023 Office outpatient vi sit 15 minutes Jan Scovanner [facility] Start: 01-15-2023 (FCCCWMNF/U) Weight Management f/u Gayathri Adams [facility] Start: 01-15-2023 End: 01-15-2023 ambulatory Gayathri Adams Other [facility] Other Start: 01-07-2023 End: 01-07-2023 ambulatory Jan Scovanner Other [facility] Other Start: 01-07-2023 Office outpatient vi sit 15 minutes Jan Scovanner [facility] Start: 09-25-2022 End: 01-16-2023 ambulatory CANDY CUTTER MACHINE YUE GRANADO Facility:[facility] Start: 09-25-2022 End: 01-15-2023 [facility] Start: 09-17-2022 End: 09-17-2022 ambulatory Gayathri Adams Other [facility] Other Start: 09-17-2022 Telephone encounter Gayathri [facility] Start: 08-28-2022 ([facility] RD FU) [facility] F/ U Registerd Real Estate Accountant Tamar Sosa [facility] Start: 08-28-2022 End: 08-28-2022 ambulatory Tamar Sosa Other [facility] Other Start: 07-29-2022 [facility] Weight Management f/u Gayathri Angie [facility] Start: 07-29-2022 End: 07-29-2022 ambulatory Gayathri Brooklynludy Other [facility] Other Start: 05-20-2022 [facility] Weight Management f/u Gayathrikasia Adams [facility] Start: 05-20-2022 End: 05-20-2022 ambulatory Gayathri Angie Other [facility] Other Start: 05-19-2022 End: 05-19-[address] ROEL GARBER . Facility:[facility] Start: 05-07-2022 End: 05-08-[address] DOCTOR ARREOLA Facility:[facility] Start: 04-09-2022 End: 04-09-2022 ambulatory Gayathri Adams Other [facility] Other Start: 04-09-2022 Telephone encounter Gayathri Adams [facility] Start: 04-08-2022 ([facility] WMNI) WMN Init ial Provider Tamar Sosa [facility] Start: 04-08-2022 ([facility] Weight Management f/u Gayathri Angie [facility] Start: 04-08-2022 End: 04-08-2022 ambulatory Tamar Sosa Other [facility] Other Start: 02-26-2022 End: 02-26-2022 ambulatory Tamar Santiagot Other [facility] Other Start: 02-26-2022 IBT FOR OBESITY GROU P 2-10 30M Tamar Ian [facility] Start: 02-25-2022 (FCCCWMNF/U) Weight Management f/u Gayathrikasia Adams [facility] Start: 02-25-2022 End: 02-25-2022 ambulatory Gayathri Adams Other [facility] Other Start: 02-17-2022 End: 02-18-2022 ambulatory RORY DRIVER Facility:[facility] Start: 01-29-2022 End: 01-30-2022 ambulatory JOY Reis [facility] Facility:[facility] Start: 01-14-2022 (FCCWMNF/U) Weight Management f/u Gayathrimarino Adams [facility] Start: 01-14-2022 End: 01-14-2022 ambulatory Gayathri Adams Other [facility] Other Start: 12-05-2021 End: 12-05-2021 ambulatory Gayathri Adams Other [facility] Other Start: 12-05-2021 Telephone encounter Gayathrimarino Adams [facility] Start: 12-04-2021 End: 12-04-2021 ambulatory Gayathri Admas Other [facility] Other Start: 12-04-2021 Nutrition therapy Gayathri Brooklynludy [facility] Start: 10-29-2021 End: 10-29-2021 ambulatory Yo Blank Other [facility] Other Start: 10-29-2021 Patient encounter procedure Yo Blank [facility] Start: 10-22-2021 End: 10-22-2021 Emergency department patient visit Shawna Dudley DO Work Phone: [facility] ED Comment on above: Acute diffuse otitis externa of left ear (Primary Dx) Start: 10-11-2021 End: 10-12-2021 Emergency department patient visit Daniel Adkins MD Work Phone: [facility] ED Comment on above: Pilonidal cyst (Prim romero Dx) Start: 11-21-2016 End: 11-26-2016 Ambulatory [facility] Facility:[facility] Procedures Date Procedure Procedure Detail Performing Clinician Start: 08-04-2024 Gluc bld gluc mntr d ev cleared fda spec home use Cleo Zambrano MD Work Phone: Start: 07-16-2024 Urnls dip stick/tabl et reagent auto microscopy Prieto Reis [employer] Work Phone: Start: 07-16-2024 End: 07-16-2024 Radex spine lumbosacral 2/3 views Prieto Reis [employer] Work Phone: Start: 06-30-2024 SITE SUPERVISOR INSERTION/REMOVA L OF CONTRACEPTIVE CAPSULE Roel Shirlene DO Work Phone: Start: 05-27-2024 MM TOMOSYNTHESIS SCR EENING BI [...] 03-09-2024 Streptococcus pyogen es culture Rory Driver CAGE MAKER MACHINE-BC Work Phone: Start: 01-13-2024 Urinalysis microscopic only Lisette Ana [...] in Cervix by Cyto stain Brittany Neville MANDARIN TEACHER Work Phone: Start: 04-20-2023 Ct cervical spine w/ o contrast material M Octavio Urbina SAIL LAY OUT WORKER - CANDY CUTTER MACHINE Work Phone: Start: 04-20-2023 Ct head/brain w/o co ntrast material M Octavio Urbina SAIL LAY OUT WORKER - CANDY CUTTER MACHINE Work Phone: Start: 03-16-2023 Mammography Brittany yoo MANDARIN TEACHER Work Phone: Start: 08-30-2016 Cholecystectomy YUE LOPEZ TERBrandyn Start: 01-03-2013 nasal surgery YUE ALVARENGA RS Tonsillectomy YUE GRANADO Plan of Treatment Date Care Activity Detail Author Start: 05-20-2027 Screening for malignant neoplasm of cervix [facility] Start: 05-24-2026 Screening for malignant neoplasm of cervix Pap Smear [facility] Start: 05-31-2025 End: 05-31-2025 Patient encounter procedure [facility] Start: 05-27-2025 Screening for malignant neoplasm of breast Mammogram [facility] Start: 03-16-2025 Screening for malignant neoplasm of breast Breast cancer screen [facility] Start: 11-10-2024 End: 11-10-2024 Patient encounter procedure 11/10/2024 11:30 AM EDT Office Visit [facility] Part of [address] [place] [phone] Karen Cotter, SAIL LAY OUT WORKER - CANDY CUTTER MACHINE [address] [place] [phone] 1 year [facility] Part of [facility] Comment on above: 1 year [facility] Start: 09-26-2024 End: 09-26-2024 Patient encounter procedure 09/26/2024 2:20 PM EDT Office Visit TIGRE BOYDEVUE [address] [place] [phone] Brittany Neville NP [address] [place], [place] Start: 08-18-2024 End: 08-18-2024 Patient encounter procedure 08/18/2024 9:45 AM EDT Office Visit [place] [place] [address] [place] [address] Mendez Cardoso DO [address] [place] [address] [facility] [place] Start: 08-04-2024 End: 08-04-2024 Patient encounter procedure 08/04/2024 10:30 AM EDT Office Visit [facility] [address] [place] [phone] Cleo Zambrano MD [address] [place] [address] [facility] Start: 08-03-2024 End: 08-03-2024 Patient encounter procedure 08/03/2024 8:40 AM EDT Office Visit TIGRE REJ[place] [address] [place] [address] Brittany Neville NP [address] [place], [place] Start: 08-02-2024 End: 08-02-2025 XR Humerus - left Views XR humerus left Imaging Routine Nexplanon removal Expected: 08/02/2024, Expires: 08/02/2025 [facility] Work Phone: Comment on above: Expected: 08/02/2024, Expires: Start: 06-13-2024 End: 06-13-2024 Patient encounter procedure 06/13/2024 9:45 AM EDT Office Visit [facility] [place] [address] [place] [phone] Mendez Cardoso DO [address] [place] [address] Arrived [facility] [place] Comment on above: Arrived Start: 06-10-2024 End: 06-10-2024 Patient encounter procedure 06/10/2024 10:45 AM EDT Office Visit [facility] [place] [address] [place] [phone] Mendez Cardoso DO [address] [place] [address] [facility] [place] Start: 05-26-2024 End: 07-26-2025 MG Breast - bilateral Screening Bilateral screening mammogram Imaging Routine Breast cancer screening by mammogram Expected: 05/26/2024 (Approximate), Expires: 07/26/2025 [facility] Work Phone: Comment on above: Expected: 05/26/2024 (Approximate), Expi res: 07/26/2025 Start: 05-26-2024 End: 05-26-2024 Patient encounter procedure 05/26/2024 11:00 AM EDT Office Visit [facility] [address] [place] [phone] Roel Garber DO [address] [facility] [place] [address] [facility] Start: 05-04-2024 End: 05-04-2024 Patient encounter procedure 05/04/2024 8:20 AM EST Office Visit TIGRE [place] [address] [place] [address] Brittany Neville, JO ANN [address] [place], [place] Start: 04-28-2024 End: 04-28-2024 Patient encounter procedure 04/28/2024 10:30 AM EST Office Visit NATALIIA [place] [address] [place] [phone] Mendez Cardoso DO [address] [place] [place] [address] [facility] [place] Start: 04-25-2024 End: 04-25-2024 Patient encounter procedure 04/25/2024 9:00 AM EST Office Visit TIG[facility] [place] [address] [address] [place] [phone] Brittany Neville, JO ANN [address] [place], [place] Start: 04-18-2024 End: 04-18-2025 C-peptide C-peptide Lab [...] 04/18/2024 10:50 AM EST Office Visit [facility] [address] [place] [phone] Roel Garber, DO [address] [facility] [place] [address] [facility] Start: 04-07-2024 End: 04-07-2025 25-hydroxyvitamin D3 [Mass/volume] in Serum or Plasma Vitamin D 25 hydroxy Total Lab Routine 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, unspecified whether group home insulin use (CMS/HCC) Expected: 04/07/2024 (Approximate), Expires: 04/07/2025 [facility] Work Phone: Comment on above: Expected: 04/07/2024 (Approximate), Expi res: 04/07/2025 Start: 04-07-2024 End: 04-07-2025 Lipid 1996 panel - Serum or Plasma Lipid panel Lab Routine 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, unspecified whether group home insulin use (CMS/HCC) Expected: 04/07/2024 (Approximate), Expires: 04/07/2025 [facility] Comment on above: Expected: 04/07/2024 (Approximate), Expi res: 04/07/2025 Start: 04-07-2024 End: 04-07-2025 Microalbumin/Creatinine panel in random Urine Microalbumin / creatinine urine ratio Lab Routine 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, 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 (CMS/HCC) Expected: 04/07/2024 (Approximate), Expires: 04/07/2025 [facility] Comment on above: Expected: 04/07/2024 (Approximate), Expi res: 04/07/2025 Start: 04-07-2024 End: 04-07-2025 Renal function panel Renal function panel Lab Routine 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, unspecified whether group home insulin use (CMS/HCC) Expected: 04/07/2024 (Approximate), Expires: 04/07/2025 [facility] Comment on above: Expected: 04/07/2024 (Approximate), Expi res: 04/07/2025 Start: 03-24-2024 End: 01-23-2025 Patient encounter procedure 03/24/2024 3:00 PM EST [facility] [address] [place] [phone] Brittany Neville NP [address] [place], [place] [facility] Start: 03-17-2024 End: 03-17-2024 Patient encounter procedure 03/17/2024 9:20 AM EST Office Visit [facility] [address] [place] [address] Cleo Zambrano MD [address] [place] [address] [facility] Start: 03-16-2024 Screening for malignant neoplasm of breast Mammogram [facility] Start: 03-11-2024 End: 03-11-2024 Patient encounter procedure 03/11/2024 10:00 AM EST Office Visit [facility] [place] [address] [place] [address] Mendez Cardoso DO [address] [place] [address] [facility] [place] Start: 03-09-2024 Group A Streptococcus Culture Group A Streptococcus Culture [facility] Start: 02-19-2024 End: 02-19-2024 Patient encounter procedure 02/19/2024 2:00 PM EST Office Visit [facility] [place] [address] [place] [address] Mendez Cardoso DO [address] [place] [address] [facility] [place] Start: 02-16-2024 End: 02-16-2024 Patient encounter procedure 02/16/2024 3:40 PM EST Office Visit [facility] [address] [facility] [address] [place] [address] Brittany Neville, JO ANN [address] [place], [place] [facility] Start: 02-09-2024 End: 02-09-2024 Patient encounter procedure 02/09/2024 11:15 AM EST Appointment [facility] Physical Therapy [address] [place], [place] [phone] Tamar Silveira, PT dry needling [facility] Physical Therapy Comment on above: dry needling Start: 01-26-2024 End: 01-26-2024 Patient encounter procedure 01/26/2024 8:00 AM EST Appointment [facility] Physical Therapy [address] [place] [phone] Tamar Silveira, PT dry needling [facility] Physical Therapy Comment on above: dry needling Start: 01-13-2024 End: 01-13-2024 Patient encounter procedure 01/13/2024 8:15 AM EST Office Visit [facility] [address] [place] [phone] Georges [place], PA-C [address] [place] [address] [address] [phone] incontinence [facility] Comment on above: incontinence Start: 12-29-2023 End: 12-29-2023 Patient encounter procedure 12/29/2023 9:00 AM EDT Appointment [facility] Physical Therapy [address] [place] [phone] Tamar Silveira, PT NEEDLING [facility] Physical Therapy Comment on above: NEEDLING Start: 12-15-2023 End: 12-15-2023 Patient encounter procedure 12/15/2023 9:00 AM EDT Appointment [facility] Physical Therapy [address] [place] [phone] Tamar Silveira, PT NEEDLING [facility] Physical Therapy Comment on above: NEEDLING Start: 12-01-2023 End: 12-01-2023 Patient encounter procedure 12/01/2023 9:45 AM EDT Appointment [facility] Physical Therapy [address] [place] [phone] Tamar Silveira, PT NEEDLING [facility] Physical Therapy Comment on above: NEEDLING Start: 11-01-2023 Influenza vaccination Influenza Vaccine (#1) [facility] Start: 10-01-2023 Influenza vaccination Flu vaccine (#1) [facility] Start: 09-01-2023 End: 09-01-2023 Patient encounter procedure 09/01/2023 10:30 AM EDT Appointment [facility] Physical Therapy [address] [place] [phone] Osito Rowan [facility] Physical Therapy Start: 08-26-2023 End: 08-26-2023 Patient encounter procedure 08/26/2023 2:30 PM EDT Appointment [facility] Physical Therapy [address] [place], [place] [phone] Kofi Villegas, PT [facility] Physical Therapy Start: 08-18-2023 End: 08-18-2023 Patient encounter procedure 08/18/2023 9:45 AM EDT Appointment [facility] Physical Therapy [address] [place] [phone] Osito Rowan [facility] Physical Therapy Start: 08-11-2023 End: 08-11-2023 Patient encounter procedure 08/11/2023 1:15 PM EDT Appointment [facility] Physical Therapy [address] [place] [phone] Jan Olmstead, PT DRY NEEDLING [facility] Physical Therapy Comment on above: DRY NEEDLING Start: 08-04-2023 End: 08-04-2023 Patient encounter procedure 08/04/2023 4:15 PM EDT Appointment [facility] Physical Therapy [address] [place] [phone] Osito Rowan [facility] Physical Therapy Start: 06-03-2023 End: 06-03-2023 Patient encounter procedure 06/03/2023 3:30 PM EDT Appointment [facility] Physical Therapy [address] [place] [phone] Osito Rowan [facility] Physical Therapy Start: 06-02-2023 End: 06-02-2023 Patient encounter procedure 06/02/2023 3:00 PM EDT Appointment [facility] Physical Therapy [address] [place], [place] [phone] Rebecca Skinner, [place] DRY NEEDLING- dont move coordinates with son's appt [facility] Physical Therapy Comment on above: DRY NEEDLING- dont move coordinates with son's appt Start: 05-23-2023 Hepatitis B vaccine (3 of 3 - Hep B Twinrix 3-dose series) Hepatitis B vaccine (3 of 3 - Hep B Twinrix 3-dose series) [facility] Start: 05-20-2023 End: 05-20-2023 Patient encounter procedure 05/20/2023 3:15 PM EDT Appointment [facility] Physical Therapy [address] [place], [place] [phone] Rojas Altamirano PTA [facility] Physical Therapy Start: 05-19-2023 End: 05-19-2023 Patient encounter procedure 05/19/2023 12:45 PM EDT Appointment [facility] Physical Therapy [address] [place], [place] [phone] Rebecca Skinner, [place] DRY NEEDLING- dont move [...] PM EST Appointment [facility] Physical Therapy [address] [place] [phone] Rebecca Skinner, PT DRY NEEDLING [facility] Physical Therapy Comment on above: DRY NEEDLING Start: 03-24-2023 End: 03-24-2023 Patient encounter procedure 03/24/2023 2:15 PM EST Appointment [facility] Physical Therapy [address] [place] [phone] Rebecca Skinner PT DRY NEEDLING [facility] Physical Therapy Comment on above: DRY NEEDLING Start: 03-19-2023 [facility] Start: 03-10-2023 End: 03-10-2023 Patient encounter procedure 03/10/2023 2:30 PM EST [facility] [address] [place] [address] Rebecca Skinner PT [facility] Physical Therapy Start: 09-30-2022 Influenza vaccination [facility] Start: 10-31-2021 Influenza vaccination Flu vaccine (#1) [facility] Start: 09-03-2021 DTaP/Tdap/Td vaccine (1 - Tdap) DTaP/Tdap/Td vaccine (1 - Tdap) [facility] Start: 2020 Lipid panel Lipids [facility] Start: 09-25-2015 Diabetes screen Diabetes screen [facility] Start: 2010 Screening for malignant neoplasm of cervix [facility] Start: 2001 Screening for malignant neoplasm of cervix Pap smear [facility] Start: 09-25-1999 DTaP/Tdap/Td vaccine (1 - Tdap) DTaP/Tdap/Td vaccine (1 - Tdap) [facility] Start: 1998 Hepatitis C screening Hepatitis C screen [facility] Start: 09-25-1995 HIV screening HIV screen [facility] Start: 1993 Varicella vaccine (1 of 2 - 13+ 2-dose series) Varicella vaccine (1 of 2 - 13+ 2-dose series) [facility] Start: 1992 Depression Screen Depression Screen [facility] Start: 1990 Lipid panel Lipids [facility] Start: 1981 Varicella vaccine (1 of 2 - 2-dose childhood series) Varicella vaccine (1 of 2 - 2-dose childhood series) [facility] Start: 03-27-1981 COVID-19 Vaccine (#1) COVID-19 Vaccine (#1) [facility] Start: 1980 Hepatitis B vaccine (1 of 3 - 3-dose series) Hepatitis B vaccine (1 of 3 - 3-dose series) [facility] [employer] DHEA-sulfate DHEA-sulfate Lab Routine Hormone imbalance Hormone disorder Ordered: 04/18/2024 [facility] Comment on above: Ordered: 04/18/2024 EKG 12 Lead EKG 12 Lead ECG Routine 01/13/2024 2:59 PM EST [facility] Smart Gardener Estradiol Estradiol Lab Ro utine Hormone imbalance Hormone disorder Ordered: 04/18/2024 [facility] Work Phone: Comment on above: Ordered: 04/18/2024 Estrone Estrone Lab Rout ine Hormone imbalance Hormone disorder Ordered: 04/18/2024 [facility] Comment on above: Ordered: 04/18/2024 Ferritin [Mass/volum e] in Serum or Plasma Ferritin Lab Routine Hormone imbalance Hormone disorder Ordered: 04/18/2024 [facility] Comment on above: Ordered: 04/18/2024 Hemoglobin A1c/Hemoglobin.total in Blood Hemoglobin A1c Lab Routine Hormone imbalance Hormone disorder Ordered: 04/18/2024 [facility] Comment on above: Ordered: 04/18/2024 Progesterone Progesterone Lab Routine Hormone imbalance Hormone disorder Ordered: 04/18/2024 [facility] Comment on above: Ordered: 04/18/2024 Sex hormone binding globulin Sex hormone binding globulin Lab Routine Hormone imbalance Hormone disorder Ordered: 04/18/2024 [facility] Comment on above: Ordered: 04/18/2024 Streptococcus pyogen es [Presence] in Unspecified specimen by Organism specific culture [facility] T3, reverse T3, reverse Lab Routine Hormone imbalance Hormone disorder Ordered: 04/18/2024 [facility] Comment on above: Ordered: 04/18/2024 TESTOSTERONE, FREE TESTOSTERONE, FREE Lab Routine Hormone imbalance Hormone disorder Ordered: 04/18/2024 [facility] Comment on above: Ordered: 04/18/2024 Testosterone, free, total Testos terone, free, total Lab Routine Hormone imbalance Hormone disorder Ordered: 04/18/2024 [facility] Comment on above: Ordered: 04/18/2024 THIN PREP TIS PAP AN D HR HPV DNA THIN PREP TIS PAP AND HR HPV DNA Pathology and Cytology Routine Well woman exam with routine gynecological exam Ordered: 05/26/2024 [facility] Comment on above: Ordered: 05/26/2024 Thyroid peroxidase antibody Thyroid peroxidase antibody Lab Routine Hormone imbalance Hormone disorder Ordered: 04/18/2024 [facility] Comment on above: Ordered: 04/18/2024 Thyroxine (T4) free [Mass/volume] in Serum or Plasma T4, free Lab Routine Hormone imbalance Hormone disorder Ordered: 04/18/2024 [facility] Comment on above: Ordered: 04/18/2024 Triiodothyronine (T3 ) Free [Mass/volume] in Serum or Plasma T3, free Lab Routine Hormone imbalance Hormone disorder Ordered: 04/18/2024 [facility] Comment on above: Ordered: 04/18/2024 Vitamin D 1,25 dihydroxy Vitamin D 1,25 dihydroxy Lab Routine Hormone imbalance Hormone disorder Ordered: 04/18/2024 [facility] Comment on above: Ordered: 04/18/2024 Immunizations Immunization Date Immunization Notes Care Provider [facility] 12-07-2023 influenza, seasonal, injectable, preservative free Paula Sanderson MD Work Phone: [facility] 05-25-2023 hepatitis A and hepa titis B vaccine Paula Sanderson MD Work Phone: [facility] 12-22-2022 hepatitis A and hepa titis B vaccine Paula Sanderson MD Work Phone: [facility] 12-22-2022 Seasonal, quadrivale nt, recombinant, injectable influenza vaccine, preservative free Paula Sanderson MD Work Phone: [facility] 12-22-2022 influenza virus vacc ine, unspecified formulation Brittany Neville NP Work Phone: [facility] 06-23-2022 hepatitis A and hepa titis B vaccine Paula Sanderson MD Work Phone: [facility] 02-07-2022 Pneumococcal Conjuga te PCV 20 Paula Sanderson MD Work Phone: [facility] 12-23-2021 influenza, injectabl e, quadrivalent, preservative free Paula Sanderson MD Work Phone: [facility] 09-02-2021 TD(adult) unspecifie d formulation Paula Sanderson MD Work Phone: [facility] 12-24-2020 influenza, injectabl e, quadrivalent, preservative free Paula Sanderson MD Work Phone: [facility] 12-19-2019 influenza, injectabl e, quadrivalent, preservative free Paula Sanderson MD Work Phone: [facility] 12-19-2018 influenza, injectabl e, quadrivalent, preservative free Paula Sanderson MD Work Phone: [facility] 12-02-2017 influenza, injectabl e, quadrivalent, preservative free Paula Sanderson MD Work Phone: [facility] 12-02-2017 pneumococcal conjuga te vaccine, 13 valent Paula Sanderson MD Work Phone: [facility] 10-10-2016 influenza, seasonal, injectable, preservative free Paula Sanderson MD Work Phone: [facility] 12-19-2013 influenza virus vacc ine, live, attenuated, for intranasal use Paula Sanderson MD Work Phone: [facility] 12-03-2012 influenza virus vacc ine, whole virus Paula Sanderson MD Work Phone: [facility] 12-29-2011 influenza virus vacc ine, whole virus Paula Sanderson MD Work Phone: [facility] 12-23-2010 influenza virus vacc ine, whole virus Paula Sanderson MD Work Phone: [facility] 12-18-2008 influenza virus vacc ine, whole virus Paula Sanderson MD Work Phone: [facility] Payers Date Payer Category Payer Self-pay [id number] 2022 Unknown 2013 Medicaid [employer] [place] [employer] [id number] 2013-Present [address] [place] [id number] 2013 Medicaid (Managed Care) [facility] MEDICAID [id number] 1980 Unknown [id number] 2.16840.1.430159.3.579.2. 593 1980 Unknown [id number] 2.16840.1.141888.3.579.2. 593 1980 Unknown [id number] 2.16840.1.528117.3.579.2. 593 1980 Unknown [id number] 2.16.840.1.236877.3.579.2. 593 1980 Unknown [id number] 2.16.840.1.869677.3.579.2. 727 1980 Unknown [id number] 2.16.840.1.878961.3.579.2. 128 1980 Unknown [id number] 2.16.840.1.013916.3.579.2. 128 1980 Unknown [id number] 2.16.840.1.243174.3.579.2. 128 1980 Unknown [id number] 2.16.840.1.948706.3.579.2. 1285 1980 Unknown [id number] 2.16.840.1.285259.3.579.2. 128 1980 Unknown [id number] 2.16.840.1.712764.3.579.2. 1285 1980 Unknown [id number] 2.16840.1.587136.3.579.2. 1285 1980 Unknown [id number] 2.16840.1.025275.3.579.2. 1285 1980 Unknown [id number] 2.16840.1.968095.3.579.2. 1285 1980 Unknown [id number] 2.16840.1.919635.3.579.2. 1285 1980 Unknown [id number] 2.840.1.565866.3.579.2. 1285 1980 Unknown [id number] 2.840.1.832167.3.579.2. 1980 Unknown [id number] 2.840.1.599796.3.579.2. 1980 Unknown [id number] 2.840.1.048251.3.579.2. 1980 Unknown [id number] 2.840.1.511971.3.579.2. 1980 Unknown [id number] 2.840.1.726438.3.579.2. 1980 Unknown [id number] 2.840.1.475387.3.579.2. 1980 Unknown [id number] 2.840.1.226702.3.579.2. 1980 Unknown [id number] 2.840.1.705235.3.579.2. 1980 Unknown [id number] 2.840.1.384587.3.579.2. 1980 Unknown [id number] 2.16840.1.467189.3.579.2. 1980 Unknown [id number] 2.840.1.805903.3.579.2. 1980 Unknown [id number] 2.16840.1.229559.3.579.2. 1980 Unknown [id number] 2.16840.1.996150.3.579.2. 1980 Unknown [id number] 2.16840.1.644725.3.579.2. 1980 Unknown [id number] 2.16840.1.440405.3.579.2. 1980 Unknown [id number] 2.16840.1.743446.3.579.2. 1980 Unknown [id number] 2.840.1.858966.3.579.2. 1980 Unknown [id number] 2.840.1.011941.3.579.2. 1980 Unknown [id number] 2.0.1.779949.3.579.2. 1980 Unknown [id number] 2.840.1.728279.3.579.2. 1980 Unknown [id number] 2.0.1.705404.3.579.2. 1980 Unknown [id number] 2.840.1.421935.3.579.2. 1980 Unknown [id number] 2.840.1.785870.3.579.2. 1980 Unknown [id number] 2.840.1.007642.3.579.2. 1258 1980 Unknown [id number] 2.840.1.776594.3.579.2. 1258 1980 Unknown [id number] 2.840.1.290545.3.579.2. 1258 1980 Unknown [id number] 2.840.1.912281.3.579.2. 1258 1980 Unknown [id number] 2.16.840.1.391823.3.579.2. 1258 1980 Unknown [id number] 2.16.840.1.445958.3.579.2. 1258 1980 Unknown [id number] 2.16.840.1.823247.3.579.2. 1258 1980 Unknown [id number] 2.16.840.1.854893.3.579.2. 1258 1980 Unknown [id number] 2.16.840.1.301126.3.579.2. 1258 1980 Unknown [id number] 2.16.840.1.265471.3.579.2. 1258 1980 Unknown [id number] 2.16.840.1.581360.3.579.2. 1259 1959 Medicaid [id number] Unknown [id number] 2.16.840.1.345830.3.579.2. 531 Unknown [id number] 2.16.840.1.770777.3.579.2. 531 Social History Date Type Detail Facility Start: 09-02-2017 End: 07-27-2024 Tobacco smoking status [facility] Never smoked tobacco [facility] Start: 09-02-2017 End: 03-10-2023 Tobacco use and exposure Smokeless tobacco non-user [facility] Phone: Start: 10-11-2021 End: 01-13-2024 Alcohol intake Current non-drinker of alcohol (finding) [facility] Phone: Start: 1980 Sex Assigned At Not on file B [facility] Phone: Start: 10-01-2021 End: 10-22-2021 Exposure to SARS-CoV-2 (event) Not sure [facility] Phone: Start: 10-11-2021 End: 08-04-2024 Sex Assigned At [facility] Tobacco smoking status Never [facility] Start: 10-11-2021 End: 08-04-2024 History of Social function [facility] Start: 1980 Sex Assigned At Female F [place] How often to you hav e a drink containing alcohol? Never [facility] Start: 02-11-2024 End: 08-04-2024 Alcoholic beverage intake Lifetime non-drinker (finding) [facility] Start: 03-11-2024 Sex Patient sex un known (finding) [facility] Start: 06-02-2024 End: 08-08-2024 Sex Female (finding) [facility] Clinical Notes 10-22-2021 to 08-04-2024 Cleo Zambrano MD - 08/04/2024 10:30 AM EDTSonal Ball LPN - 08/02/2024 8:30 AM EDTTelephone Encounter - Austin Perkins - 07/20/2024 11:58 AM EDTDischarge InstructionsAttachments Note Date & Type Note Facility 08-04-2024 History of Presen t illness Narrative Images from the original note were not included. For broken ankle UR Karma Banegas is a 43 y.o. female No ref. provider found presents with chief complaint of Diabetes HPI: History of Present Illness The patient is a 43-year-old female who presents for follow-up of diabetes. She is currently on a regimen of Jardiance 25 mg, Actos, and Mounjaro 2.5 mg. She has expressed interest in increasing the dosage of Mounjaro to 5 mg. Results Laboratory Studies A1c is 5.8. Blood sugar is 131. IM : 04/2025 follow up visit on [...] yet. HPI: 06/2020 New patient sent from [facility] for uncontrolled diabetes. A1c of 9.3 [...] APPLY TO THE AFFECTED AREA(S) TWICE DAILY clindamycin (CLEOCIN) 300 mg, Oral, 3 times daily cyclobenzaprine (FLEXERIL) 10 mg, 3 times daily PRN diclofenac (VOLTAREN) 75 mg, 2 times daily PRN docusate sodium (COLACE) 300 mg, 3 times daily DULoxetine (CYMBALTA) 60 mg, 2 times daily empagliflozin (JARDIANCE) 25 mg, Oral, Daily famotidine (PEPCID) 40 mg, Daily ferrous sulfate 325 mg, Daily with breakfast fexofenadine (ROS) 180 mg, [...] XL (Toprol-XL) 25 MG 24 hr tablet Mounjaro 5 mg, Subcutaneous, Every 7 days Multiple Vitamin (Tab-A-Karely) tablet 1 tablet, Daily mupirocin (Bactroban) 2 % ointment apply to left nose TWICE DAILY for 2 (TWO) weeks NEEDED naproxen (NAPROSYN) 500 mg, 2 times daily with meals Nexplanon 68 mg, Once pantoprazole (PROTONIX) 40 mg, Daily before breakfast pioglitazone (ACTOS) 30 mg, Oral, Daily Probiotic Product (Align) capsule 1 capsule, Daily rosuvastatin (CRESTOR) 10 mg, Daily SUMAtriptan (Imitrex) 100 MG tablet TAKE 1 TABLET BY MOUTH DAILY NEEDED FOR MIGRAINE traMADol (ULTRAM) 50 mg, Daily [...] Extract Past Medical History: Diagnosis Date Anemia Attention deficit hyperactivity disorder ([facility]) 04/27/2024 Bipolar disorder Body mass index (BMI) of 36.0 to 36.9 Cholecystitis 2017 Acute/chronic Chronic rhinitis Circadian rhythm sleep disorder, shift work type 04/27/2024 Controlled type 2 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, without long-term current use of insulin Disorder of sacrum 01/29/2023 Gastritis 2017 GERD (gastroesophageal reflux disease) Hyperlipemia ([facility]) Impulse control disorder ([facility]) 04/27/2024 Insertion of Nexplanon Iron deficiency anemia Kidney stones Macromastia 10/08/2023 Mass of upper outer quadrant of right breast 06/02/2023 Mixed bipolar affective disorder, moderate ([facility]) 04/27/2024 OCD (obsessive compulsive disorder) ([facility]) Open wound of toe without complication 03/10/2023 PTSD (post-traumatic stress disorder) ([facility]) Recurrent epistaxis Seasonal allergies Symptomatic mammary hypertrophy 06/02/2023 Type 2 diabetes mellitus with hyperglycemia ([facility]) Umbilical hernia 2017 Vitamin D deficiency Past Surgical History: Procedure Laterality Date ANKLE SURGERY BACK SURGERY CHOLECYSTECTOMY 08/2016 Laparoscopic EGD 10/2016 with Bx NASAL SINUS SURGERY OTHER SURGICAL HISTORY 05/31/2024 DISE SHOULDER SURGERY Right TONSILLECTOMY UMBILICAL HERNIA REPAIR [...] Lab Results Component Value Date HGBA1C 5.8 08/04/2024 HGBA1C 5.9 04/18/2024 HGBA1C 5.8 04/07/2024 Lab Results Component Value Date GLU 131 08/04/2024 GLU 101 04/18/2024 GLU 115 04/07/2024 04/28/2024 10:28 AM 05/10/2024 8:03 AM 05/26/2024 11:32 AM 06/13/2024 9:51 AM 06/30/2024 9:56 AM 08/02/2024 8:42 AM 08/04/2024 10:45 AM Vitals BMI 38.79 kg/m2 38.97 kg/m2 40.39 kg/m2 40.74 kg/m2 40.48 kg/m2 41.45 kg/m2 BSA (m2) 2.1 m2 2.11 m2 2.14 m2 2.15 m2 2.15 m2 2.17 m2 Systolic 128 128 128 122 112 Diastolic 82 78 92 76 70 Heart Rate 102 87 SpO2 99 % 97 % Resp 16 Height (in) 5' 3 5' 3 5' 3 5' 3 Weight (lb) 219 220 228 230 228.5 234 Visit Report Report Report Report Report Report Report ASSESSMENT AND PLAN: Assessment/Plan Diagnoses and all orders for this visit: 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, unspecified whether group home insulin use - POCT glycosylated hemoglobin (Hb A1C) docked device - POCT glucose manually resulted - empagliflozin (Jardiance) 25 MG; Take 1 tablet (25 mg) by mouth Daily - pioglitazone (Actos) 30 MG tablet; Take 1 tablet (30 mg) by mouth Daily - Tirzepatide (Mounjaro) 5 MG/0.5ML solution auto-injector; Inject 5 mg under the skin every 7 (seven) days Vitamin D deficiency Weight gain Encounter for dietary consultation Hyperlipemia, mixed (CMS/HCC) Class 3 severe obesity due to excess calories without serious comorbidity with body mass index (BMI) of 40.0 to 44.9 in adult Diet and exercise reviewed with the patient Assessment & Plan 1. Diabetes Mellitus. Her A1c level is currently at 5.8, and her blood glucose level is 131. She is currently on Jardiance 25 mg once daily, Actos 30 mg daily , and Mounjaro 2.5 mg. The dosage of Mounjaro will be increased to 5 mg to help with weight management. The other medications will remain the same. A prescription for Mounjaro will be sent to her pharmacy, which is on a medication synchronization program to ensure she receives all her medications at the same time. Follow up in about 4 months (around 12/04/2024). documented in this encounter [facility] 08-02-2024 History of Presen t illness Narrative Reason for Appointment: Patient ID: Karma Banegas is a 43 y.o. female who presents for Follow-up Patient presents today for Acute Visit. MEDICATIONS Current Outpatient Medications Medication Instructions albuterol [...] daily PRN docusate sodium (COLACE) 300 mg, 3 times daily DULoxetine (CYMBALTA) 60 mg, 2 times daily empagliflozin (JARDIANCE) 25 mg, Oral, Daily famotidine (PEPCID) 40 mg, Daily ferrous sulfate 325 mg, Daily with breakfast fexofenadine (ROS) 180 mg, [...] XL (Toprol-XL) 25 MG 24 hr tablet Mounjaro 2.5 MG/0.5ML solution auto-injector INJECT 2.5 MG SUBCUTANEOUSLY (UNDER THE SKIN) EVERY 7 DAYS Multiple Vitamin (Tab-A-Karely) tablet 1 tablet, Daily mupirocin (Bactroban) 2 % ointment apply to left nose TWICE DAILY for 2 (TWO) weeks NEEDED naproxen (NAPROSYN) 500 mg, 2 times daily with meals Nexplanon 68 mg, Once pantoprazole (PROTONIX) 40 mg, Daily before breakfast pioglitazone (ACTOS) 30 mg, Oral, Daily Probiotic Product (Align) capsule 1 capsule, Daily rosuvastatin (CRESTOR) 10 mg, Daily SUMAtriptan (Imitrex) 100 MG tablet TAKE 1 TABLET BY MOUTH DAILY NEEDED FOR MIGRAINE traMADol (ULTRAM) 50 mg, Daily [...] Noted Acute cholecystitis 09/15/2016 Anemia 03/10/2023 Asthma 03/10/2023 Axillary lymphadenopathy 05/10/2020 Bilateral foot pain 03/10/2023 Cervical disc displacement 09/21/2017 Chronic rhinitis 03/10/2023 Disc displacement, lumbar 10/11/2018 Diverticulitis 03/10/2023 Intervertebral disc 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 12/02/2022 Lumbosacral spondylosis without myelopathy 07/22/2018 Obesity 03/10/2023 Primary osteoarthritis, left ankle and foot 03/10/2023 PTSD (post-traumatic stress disorder) ([facility]) 06/16/2018 Recurrent epistaxis 03/10/2023 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 11/10/2017 Well woman exam with routine gynecological exam 05/25/2023 Type 2 diabetes mellitus with hyperglycemia ([facility]) 02/11/2024 Vitamin D deficiency, unspecified 02/11/2024 Hyperlipidemia, unspecified ([facility]) 02/11/2024 Resolved Ambulatory Problems Diagnosis Date Noted Hot flashes 03/10/2023 Postoperative abscess 09/28/2016 Open wound of toe without complication 03/10/2023 Disorder of sacrum 01/29/2023 Macromastia 10/08/2023 Mass of upper outer quadrant of right breast 06/02/2023 Symptomatic mammary hypertrophy 06/02/2023 Attention deficit hyperactivity disorder ([facility]) 04/27/2024 Circadian rhythm sleep disorder, shift work type 04/27/2024 Impulse control disorder ([facility]) 04/27/2024 Mixed bipolar affective disorder, moderate ([facility]) 04/27/2024 Past Medical History: Diagnosis Date Bipolar disorder Body mass index (BMI) of 36.0 to 36.9 Cholecystitis 2016 Controlled type 2 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, without long-term current use of insulin Gastritis 2017 GERD (gastroesophageal reflux disease) Hyperlipemia ([facility]) Insertion of Nexplanon Iron deficiency anemia Kidney stones OCD (obsessive compulsive disorder) ([facility]) Seasonal allergies Umbilical hernia 2017 Vitamin D deficiency HISTORY PAST MEDICAL HISTORY SOCIAL HISTORY Past Medical History: Diagnosis Date Anemia Attention deficit hyperactivity disorder ([facility]) 04/27/2024 Bipolar disorder Body mass index (BMI) of 36.0 to 36.9 Cholecystitis 2017 Acute/chronic Chronic rhinitis Circadian rhythm sleep disorder, shift work type 04/27/2024 Controlled type 2 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, without long-term current use of insulin Disorder of sacrum 01/29/2023 Gastritis 2017 GERD (gastroesophageal reflux disease) Hyperlipemia ([facility]) Impulse control disorder ([facility]) 04/27/2024 Insertion of Nexplanon Iron deficiency anemia Kidney stones Macromastia 10/08/2023 Mass of upper outer quadrant of right breast 06/02/2023 Mixed bipolar affective disorder, moderate ([facility]) 04/27/2024 OCD (obsessive compulsive disorder) ([facility]) Open wound of toe without complication 03/10/2023 PTSD (post-traumatic stress disorder) ([facility]) Recurrent epistaxis Seasonal allergies Symptomatic mammary hypertrophy 06/02/2023 Type 2 diabetes mellitus with hyperglycemia ([facility]) Umbilical hernia 2017 Vitamin D deficiency Social History Tobacco Use Smoking status: Never Smokeless tobacco: Never Substance Use Topics Alcohol use: Never Drug use: Never FAMILY HISTORY Family History Problem Relation Name Age of Onset Melanoma Mother SURGICAL HISTORY Past Surgical History: Procedure Laterality Date ANKLE SURGERY BACK SURGERY CHOLECYSTECTOMY 08/2016 Laparoscopic EGD 10/2016 with Bx NASAL SINUS SURGERY OTHER SURGICAL HISTORY 05/31/2024 DISE SHOULDER SURGERY Right TONSILLECTOMY UMBILICAL HERNIA REPAIR 08/2016 REVIEW OF SYSTEMS Review of Systems: Review of Systems Constitutional: Negative. HENT: Negative. Eyes: Negative. Respiratory: Negative. Cardiovascular: Negative. Gastrointestinal: Negative. Genitourinary: Negative. Musculoskeletal: Negative. Skin: Negative. Neurological: Negative. All other systems reviewed and are negative. Hematological: Negative. Endocrine: Negative. Allergic/Immunologic: Negative. OBJECTIVE Objective: Physical Exam Constitutional: Appearance: Normal appearance. She is well-developed. Cardiovascular: Rate and Rhythm: Normal rate and [...] nursing note reviewed. Exam conducted with a textbook associate present. Vitals: Estimated body mass index is 40.48 kg/m as calculated from the following: Height as of 06/13/24: 5' 3 . Weight as of this encounter: 228 lb 8 oz. BP: 122/76 No LMP recorded. Patient has had an implant. ASSESSMENT & PLAN ICD-10-CM 1. Itching with irritation L29.9 2. Nexplanon removal Z30.46 XR humerus left Pt presents with irritation around Nexplanon removal site. Nexplanon was removed 06/30/24, pt states small bulge under removal site and she itched it and removed a small piece of sac. After palpating left arm, feels as if its capsule of scar tissue or another Nexplanon that was inserted previously by another physician. Lidocaine injected small incision with scalpel made, scar tissue noted. Pt given Xray to have obtained to view if remnants of nexplanon. Rx for cleocin faxed to pharmacy. Documented by Sonal Ball LPN on behalf of: Roel Garber DO documented in this encounter [facility] 07-20-2024 Telephone encounter Note Received request for surgery clearance based on last visit for wrist/hand surgery. Please advise. [facility] 07-20-2024 Miscellaneous Notes Received request for surgery clearance based on last visit for wrist/hand surgery. Please advise. documented in this encounter [facility] 07-16-2024 Hospital DischPrieto Singh PA-C - 07/16/2024 1:36 PM EDT May use ice and elevation for the ankle continue your ibuprofen and use of your Flexeril at home for muscle relaxant for your lower back would apply cold pack to the lower back for 20 minutes several times a day as well. Follow-up with your primary care and or senior technical specialist for these concerns. The following attachments cannot be sent through Care Everywhere.Back Pain (Armenian)Arthritis (Armenian)documented in this encounter [facility] 06-30-2024 History of Presen t illness Narrative Associated Order(s): Insertion/Removal of Contraceptive Capsule Post-Procedure Diagnose(s): Nexplanon removal Reason for Appointment: Patient ID: Karma Banegas is a 43 y.o. female who presents for Nexplanon removal Patient presents today for a Nexplanon Removal appointment. MEDICATIONS Current Outpatient Medications Medication Instructions [...] daily PRN docusate sodium (COLACE) 300 mg, 3 times daily DULoxetine (CYMBALTA) 60 mg, 2 times daily empagliflozin (JARDIANCE) 25 mg, Oral, Daily famotidine (PEPCID) 40 mg, Daily ferrous sulfate 325 mg, Daily with breakfast fexofenadine (ROS) 180 mg, [...] XL (Toprol-XL) 25 MG 24 hr tablet Mounjaro 2.5 MG/0.5ML solution auto-injector INJECT 2.5 MG SUBCUTANEOUSLY (UNDER THE SKIN) EVERY 7 DAYS Multiple Vitamin (Tab-A-Karely) tablet 1 tablet, Daily mupirocin (Bactroban) 2 % ointment apply to left nose TWICE DAILY for 2 (TWO) weeks NEEDED naproxen (NAPROSYN) 500 mg, 2 times daily with meals Nexplanon 68 mg, Once pantoprazole (PROTONIX) 40 mg, Daily before breakfast pioglitazone (ACTOS) 30 mg, Oral, Daily Probiotic Product (Align) capsule 1 capsule, Daily rosuvastatin (CRESTOR) 10 mg, Daily SUMAtriptan (Imitrex) 100 MG tablet TAKE 1 TABLET BY MOUTH DAILY NEEDED FOR MIGRAINE traMADol (ULTRAM) 50 mg, Daily [...] Comments), Unknown Reaction Hypoglycemia Poison [place] Extract SURGICAL HISTORY Past Surgical History: Procedure Laterality Date ANKLE SURGERY BACK SURGERY CHOLECYSTECTOMY 08/2016 Laparoscopic EGD 10/2016 with Bx NASAL SINUS SURGERY OTHER SURGICAL HISTORY 05/31/2024 DISE SHOULDER SURGERY Right TONSILLECTOMY UMBILICAL HERNIA REPAIR 08/2016 REVIEW OF SYSTEMS Review of Systems: Review of Systems Constitutional: Negative. HENT: Negative. Eyes: Negative. Respiratory: Negative. Cardiovascular: Negative. Gastrointestinal: Negative. Genitourinary: Negative. Musculoskeletal: Negative. Skin: Negative. Neurological: Negative. All other systems reviewed and are negative. Hematological: Negative. Endocrine: Negative. Allergic/Immunologic: Negative. OBJECTIVE Objective: Physical Exam Constitutional: Appearance: Normal appearance. She is well-developed. Cardiovascular: Rate and Rhythm: Normal rate and [...] nursing note reviewed. Exam conducted with a textbook associate present. Vitals: Estimated body mass index is 40.74 kg/m as calculated from the following: Height as of 06/13/24: 5' 3 . Weight as of 06/13/24: 230 lb. BP: (!) 128/92 No LMP recorded. Patient has had an implant. ASSESSMENT & PLAN Assessment/Plan Encounter Diagnosis: ICD-10-CM 1. Nexplanon removal Z30.46 Insertion/Removal of Contraceptive Capsule Date/Time: 06/30/2024 10:51 [...] with steri-strips and pressure bandage applied: yes Nexplanon Removal: Patient presents today for removal of Nexplanon. Written consent for procedure was obtained and patient was placed in sitting position with left arm placed on side exam table due to patient currently being in a wheelchair. Skin was cleansed with alcohol/Betadine and 2cc of Lidocaine was injected underneath palpated Nexplanon at distal end. After allowing for sufficient time for numbing agent to take effect, the skin overlying the end of Nexplanon was incised with an 11inch blade scalpel. A 7.5in hemostat was inserted in the incision site to grab device and Nexplanon was released from tissue. Nexplanon implant was removed in its entirety and visualized by myself and patient. The skin was cleansed with alcohol and the incision was covered with gauze. Post-procedure care was reviewed and patient will continue with proposed plan of care. Patient was advised to call office with any questions or concerns. Patient desire note informing that she is under provider care for management of hormones and was referred to specialist for personalized medication therapy for symptoms. Follow Up: Patient is to return to the office as needed for any routine appointments. Documented by Bela Ribeiro LPN on behalf of: Roel Garber DO documented in this encounter [facility] 06-20-2024 Note UTP CARDIOLOGY PROGR ESS NOTE HVC HPI: Karma Whitehead is a 43 y.o. female here [...] , with Irma's disease with complications of [place]. Mother has no significant family hx. Patient [...] test: Coronary angiogram: Event Monitor/Holter Monitor/Device Assessment/Plan: Karma Whitehead is a 43 y.o. female #Hypertension [...] order treadmill stress and echocardiogram to assess c (more content not included)... [facility] 06-13-2024 History of Presen t illness Narrative Subjective Patient ID: Karma Banegas is a 43 y.o. female who presents for Sleep Apnea (S/p DISE) HPI This patient presents after drug-induced sleep endoscopy Review of Systems Sleep apnea with intolerance to CPAP. The rest of her review of systems is unchanged. Objective ENT Physical Exam General Examination: General overview: Normal, age-appropriate, no evidence of distress, obese Head: Normocephalic, atraumatic Eyes: Pupils are equally round and reactive to light and accommodation, extraocular muscles are intact Ears: External ear architecture within normal limits, ear canals are patent, tympanic membranes are intact. Nose: External nose unremarkable, nares patent, septum intact, no evidence of congestion. Oral cavity: Mucosa moist, no evidence of ulcer, mass, or lesion Throat: Clear, results of drug-induced sleep endoscopy reveal anterior-posterior closure of the airway. Neck/thyroid: Neck supple, full range of motion, [...] for this visit: Obstructive sleep apnea Comments: Drug-induced sleep endoscopy would suggest improvement with hypoglossal nerve stimulation Intolerance of continuous positive airway pressure (CPAP) ventilation Class 3 severe obesity with serious comorbidity and body mass index (BMI) of 40.0 to 44.9 in adult, unspecified obesity type Comments: Patient will continue efforts to reduce her body mass index with weight loss as well as upcoming surgery documented in this encounter [facility] 06-02-2024 Evaluation note Diagnosis Onset Date Resolution Constipation acute June 02, 025 9:26am Fatty liver acute June 02 9:26am GERD (gastroesophageal reflux disease) acute June 02, 2024 9:26am IBS (irritable bowel syndrome) acute June 02, 2024 9:26am [facility] Work Phone: 1(800) 389-962004-03-2025 Evaluation note* Diagnosis Onset Date Resolution Status Admit Date Constipation acute June 02, 9:26am Fatty liver acute June 02 9:26am GERD (gastroesophageal reflu x disease) acute June 02, 2024 9:26am IBS (irritable bowel syndrome) acute June 02, 2024 9:26am GERD (gastroesophageal reflu x disease) acute August 08, 2024 1 :22pm Irritable bowel syndrome wit h constipation acute August 08, 2024 1 :22pm [facility] Work Phone: 1(433) 346-215303-27-2025 History of Present illness Narrative* Becky Silvestre, MEDIA PRODUCER - 05/26/2024 11:00 AM EDT Reason for Appointment: Patient ID: Karma Banegas [...] Noted Acute cholecystitis 09/15/2016 Anemia 03/10/2023 Asthma ([facility]) 03/10/2023 Axillary lymphadenopathy 05/10/2020 Bilateral foot pain 03/10/2023 Cervical disc displacement 09/21/2017 Chronic rhinitis 03/10/2023 Disc displacement, lumbar 10/11/2018 Diverticulitis 03/10/2023 Intervertebral disc 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 12/02/2022 Lumbosacral spondylosis without myelopathy 07/22/2018 Obesity 03/10/2023 Primary osteoarthritis, left ankle and foot 03/10/2023 PTSD (post-traumatic stress disorder) ([facility]) 06/16/2018 Recurrent epistaxis 03/10/2023 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 ([facility]) 11/10/2017 Well woman exam with routine gynecological exam 05/25/2023 Type 2 diabetes mellitus with hyperglycemia ([facility]) 02/11/2024 Vitamin D deficiency, unspecified 02/11/2024 Hyperlipidemia, unspecified ([facility]) 02/11/2024 Resolved Ambulatory Problems Diagnosis Date Noted Hot flashes 03/10/2023 Postoperative abscess 09/28/2016 Open wound of toe without complication 03/10/2023 Disorder of sacrum 01/29/2023 Macromastia 10/08/2023 Mass of upper outer quadrant of right breast 06/02/2023 Symptomatic mammary hypertrophy 06/02/2023 Attention deficit hyperactivity disorder (CMS/HCC) 04/27/2024 Circadian rhythm sleep disorder, shift work type 04/27/2024 Impulse control disorder (CMS/HCC) 04/27/2024 Mixed bipolar affective disorder, moderate (CMS/HCC) 04/27/2024 Past Medical History: Diagnosis Date Bipolar disorder (CMS/HCC) Body mass index (BMI) of 36.0 to 36.9 Cholecystitis 2017 Controlled type 2 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, without long-term current use of insulin (CMS/HCC) Gastritis 2017 GERD (gastroesophageal reflux disease) Hyperlipemia (CMS/HCC) Insertion [...] moderate (CMS/HCC) 04/27/2024 OCD (obsessive compulsive disorder) (CMS/HCC) Open wound of toe without complication 03/10/2023 PTSD (post-traumatic stress disorder) (CMS/[facility]) Recurrent epistaxis Seasonal allergies Symptomatic mammary hypertrophy 06/02/2023 Type 2 diabetes mellitus with hyperglycemia (CMS/HCC) Umbilical hernia 2017 Vitamin D deficiency Social [...] nursing note reviewed. Exam conducted with a textbook associate present. Vitals: Estimated body mass index is [...] of: Roel Garber DO documented in this encounterExcelsior Springs Medical [id number] History of Present illness Narrative* Mendez Cardoso, DO - 04/28/2024 10:30 AM EST Subjective Patient ID: Karma Banegas is a [...] Citalopram 07/14/2013 Metformin and related 04/20/2023 Poison devorha extract 04/15/2022 Past Medical History: Diagnosis Date [...] moderate (CMS/HCC) 04/27/2024 OCD (obsessive compulsive disorder) (CMS/HCC) Open wound of toe without complication 03/10/2023 [...] Food Insecurity (10/05/2023) Received from [facility] Hunger Screening Within the past 12 [...] limits, ear canals are patent, tympanic membranes areintact. Nose: External nose unremarkable, nares patent, septum [...] Patient encouraged to follow up with her garment manufacturer regarding the significant evidence of laryngopharyngeal reflux noted on endoscopy documented in this encounterExcelsior Springs Medical [id number] History of Present illness Narrative* Bela Ribeiro LPN - 04/18/2024 10:50 AM EST Reason for Appointment: Patient ID: Karma Banegas [...] FOR 4 DAYS then TAKE 2 TABLETS BYMOUTH DAILY FOR 4 DAYS then TAKE 1 [...] Noted Acute cholecystitis 09/15/2016 Anemia 03/10/2023 Asthma ([facility]) 03/10/2023 Axillary lymphadenopathy 05/10/2020 Bilateral foot pain 03/10/2023 Cervical disc displacement 09/21/2017 Chronic rhinitis 03/10/2023 Disc displacement, lumbar 10/11/2018 Diverticulitis 03/10/2023 Intervertebral disc 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 12/02/2022 Lumbosacral spondylosis without myelopathy 07/22/2018 Obesity 03/10/2023 Primary osteoarthritis, left ankle and foot 03/10/2023 PTSD (post-traumatic stress disorder) ([facility]) 06/16/2018 Recurrent epistaxis 03/10/2023 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 ([facility]) 11/10/2017 Well woman exam with routine gynecological exam 05/25/2023 Type 2 diabetes mellitus with hyperglycemia ([facility]) 02/11/2024 Vitamin D deficiency, unspecified 02/11/2024 Hyperlipidemia, unspecified ([facility]) 02/11/2024 Resolved Ambulatory Problems Diagnosis Date Noted Hot flashes 03/10/2023 Postoperative abscess 09/28/2016 Open wound of toe without complication 03/10/2023 Disorder of sacrum 01/29/2023 Macromastia 10/08/2023 Mass of upper outer quadrant of right breast 06/02/2023 Symptomatic mammary hypertrophy 06/02/2023 Past Medical History: Diagnosis Date Bipolar disorder ([facility]) Body mass index (BMI) of 36.0 to 36.9 Cholecystitis 2017 Controlled type 2 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, without long-term current use of insulin ([facility]) Gastritis 2017 GERD (gastroesophageal reflux disease) Hyperlipemia ([facility]) Insertion of Nexplanon Iron deficiency anemia Kidney stones OCD (obsessive compulsive disorder) ([facility]) Seasonal allergies Umbilical hernia 2017 Vitamin D deficiency HISTORY PAST MEDICAL HISTORY SOCIAL HISTORY Past Medical History: Diagnosis Date Anemia Bipolar disorder ([facility]) Body mass index (BMI) of 36.0 to 36.9 Cholecystitis 2017 Acute/chronic Chronic rhinitis Controlled type 2 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, without long-term current use of insulin ([facility]) Disorder of sacrum 01/29/2023 Gastritis 2017 GERD (gastroesophageal reflux disease) Hyperlipemia ([facility]) Insertion of Nexplanon Iron deficiency anemia Kidney stones Macromastia 10/08/2023 Mass of upper outer quadrant of right breast 06/02/2023 OCD (obsessive compulsive disorder) ([facility]) Open wound of toe without complication 03/10/2023 PTSD (post-traumatic stress disorder) ([facility]) Recurrent epistaxis Seasonal allergies Symptomatic mammary hypertrophy 06/02/2023 Type 2 diabetes mellitus with hyperglycemia ([facility]) Umbilical hernia 2017 Vitamin D deficiency Social [...] that she has had an increase in fatigue,night sweats and yeast infections. Patient stated that the only time she noticed that yeast infections had decreased was when she was on Lamisol for her toenail. Patient is currently on Nexplanon anddoes not have cycles. Discussed hormone labs with patient and patient will have buderer panel drawn. Patient to follow up in office for annual and review labs. Documented by Bela Ribeiro LPN on behalf of: Roel Garber DO documented in this [facility]02-12-2025 Telephone encounter Note* Telephone Encounter - Austin Perkins - 04/13/2024 1:29 PM EST PA needed for mounjaro. Thank you! [facility] [id number] Miscellaneous Notes* Telephone Encounter - Austin Perkins - 04/13/2024 1:29 PM EST PA needed for mounjaro. Thank you! documented in this [facility]02-06-2025 History of Present illness Narrative* Cleo Zambrano MD - 04/07/2024 10:00 AM EST Karma Banegas is a 43 y.o. female [...] mg daily, jardiance 25 mg daily, lab on09/2020 TC 205, TG 145, HDL 46, LDL 130, GFR>60, C PEPTIDE 5.1, VIT D 32 IM : 09/2020 follow up visit on 10/16/2020, A1c 6.2, bg 128, on actos 30 mg daily, jardiance 25 mg daily, no newlab yet. HPI: 06/2020 New patient sent from [facility] for uncontrolled diabetes. A1c of 9.3 in [...] FOR 4 DAYS then TAKE 2 TABLETS BYMOUTH DAILY FOR 4 DAYS then TAKE 1 [...] Medical History: Diagnosis Date Anemia Bipolar disorder ([facility]) Body mass index (BMI) of 36.0 to 36.9 Cholecystitis 2017 Acute/chronic Chronic rhinitis Controlled type 2 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, without long-term current use of insulin ([facility]) Disorder of sacrum 01/29/2023 Gastritis 2017 GERD (gastroesophageal reflux disease) Hyperlipemia ([facility]) Insertion of Nexplanon Iron deficiency anemia Kidney stones Macromastia 10/08/2023 Mass of upper outer quadrant of right breast 06/02/2023 OCD (obsessive compulsive disorder) ([facility]) Open wound of toe without complication 03/10/2023 PTSD (post-traumatic stress disorder) ([facility]) Recurrent epistaxis Seasonal allergies Symptomatic mammary hypertrophy 06/02/2023 Type 2 diabetes mellitus with hyperglycemia ([facility]) Umbilical hernia 2016 Vitamin D deficiency Past [...] recent change. No heart burn, liver or gallbladderdisease; no rectal bleeding or pain : No urinary pain , frequency or odor. 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 documented in this encounterExcelsior Springs Medical [id number] Telephone encounter Note* Telephone Encounter - Austincosta Perkins - 02/16/2024 10:05 AM EST Pt would like ot know if you can try to get the ozempic approved again. She's gained 20lbs on trulicity. [facility] [id number] Miscellaneous Notes* Telephone Encounter - Austin Gregorio - 02/16/2024 10:05 AM EST Pt would like ot know if you can try to get the ozempic approved again. She's gained 20lbs on trulicity. documented in this encounterExcelsior Springs Medical [id number] History of Present illness Narrative* Jan Olmstead, PT - 02/09/2024 11:15 AM EST [facility] Inpatient/Observation/Outpatient Rehabilitation Date: 02/09/2024 Patient Name: [...] Cert. DN Date: 02/09/[address] [facility] [address] Discharge instructions* Discharge Instructions* Lisette Junior DO - 01/13/2024 5:40 PM EST Increase your fluid intake. Follow-up with your doctor to discuss your medications especially the gabapentin and cyclobenzaprine which can certainly make you feel tired and groggy all the time. * Attachments The following attachments cannot be sent through Care Everywhere. * Dizziness (Armenian) documented in this encounterBon [facility] St. [facility]09-30-[facility]24 Telephone encounter Note* Telephone Encounter - Filomena Evans MA - 11/30/2023 1:09 PM EDT I called Dr Brito's office and spoke with Filomena. She states the sleep study cannot be over 2 years old. This is 2 years before the patient has the surgery for inspire. She states it is roughly 2-3 months from referral to the patient getting the DICE testing and device. She also believes that the device is MRI compatible. [facility] [id number] Miscellaneous Notes* Telephone Encounter - Filomena Evans MA - 11/30/2023 1:09 PM EDT I called Dr Brito's office and spoke with Filomena. She states the sleep study cannot be over 2 years old. This is 2 years before the patient has the surgery for inspire. She states it is roughly 2-3 months from referral to the patient getting the DICE testing and device. She also believes that the device is MRI compatible. * Telephone Encounter - Brittany Neville NP - 11/30/2023 11:11 AM EDT Please call Dr. Brito office and ask the following questions in regards to Inspire device. Her BMI is 35.96, will [place] allow this BMI Her HST is from 04/2022, does need this updated Will she be able to have MRIs If all of this is ok we will send for Inspire consult We will need to call her with an update documented in this encounterNOGolden Valley Memorial [id number] Telephone encounter Note* Telephone Encounter - Brittany Neville NP - 11/30/2023 11:11 AM EDT Please call Dr. Brito office and ask the following questions in regards to Inspire device. Her BMI is 35.96, will [place] allow this BMI Her HST is from 04/2022, does need this updated Will she be able to have MRIs If all of this is ok we will send for Inspire consult We will need to call her with an update [facility] [id number] History of Present illness Narrative* Brittany Neville NP - 11/30/2023 10:20 AM EDT Images from the original note were not [...] not want to try it and not wakeup rested. She states the flexeril and voltaren does help her sleep better. Past Medical History: Diagnosis Date Anemia Bipolar disorder ([facility]) Body mass index (BMI) of 36.0 to 36.9 Cholecystitis 2017 Acute/chronic Chronic rhinitis Controlled type 2 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, without long-term current use of insulin ([facility]) Gastritis 2017 GERD (gastroesophageal reflux disease) Hyperlipemia ([facility]) Insertion of Nexplanon Iron deficiency anemia Kidney stones OCD (obsessive compulsive disorder) ([facility]) Open wound of toe without complication 03/10/2023 PTSD (post-traumatic stress disorder) ([facility]) Recurrent epistaxis Seasonal allergies Umbilical hernia 2016 [...] on. She understands the risk of stroke, [place] and without wearing it. She states she [...] She did switch to a provider in [place]. They did change her zanaflex and mobic [...] and see if BMI of 36 with [place] is feasible for Inspire device, if it will be MRIcompatible and her HST is from April 2022 [...] was counseled on the risks of stroke, [place], and sudden with JADON, along with the need for compliance with the CPAP/BiPAP treatment. Return to clinic: 3 months documented in this encounterExcelsior Springs Medical [id number] History of Present illness Narrative* Jan Olmstead, PT - 10/20/2023 9:45 AM EDT [facility] Outpatient Physical Therapy Daily Note Patient: Karma Whitehead : 1980 CSN #: [id number] Referring Physician: Shawna Dudley DO Date: 10/20/2023 Treatment Diagnosis: LBP, cervical spine pain Onset Date: 02/18/23 PT Insurance Information: [employer] [place] [place] Total # of Visits Approved: 32 Per [...] the cervical area and her LB area.-met Tax Advisor Goals Time Frame for Correction Goals : 6 visits Tax Advisor Goal 1: Pt will be independent and compliant with exercise while maintaining improved posture 50% of the time - not met Tax Advisor Goal 2: Pt will be able to perform full cervical ROM without increase complaints of baseline pain with initiation to demonstrate imporved control of pain -NOT MET: continued cervical spine pain. Tax Advisor Goal 3: Pt will report 40% improvement in overall complaints and improved tolerance to her job tasks - 40% improved. Tax Advisor Goal 4: Pt kvng UE strength will be 5/5 without increasing pain complaints to assist in tolerance of lifting and carrying -PARTIALLY MET 4+/5 grossly. Minutes Tracking: Time In: 944 Time Out: 1030 Minutes: 45 Timed Code Treatment Minutes: 43 Minutes Jan Olmstead PT, DPT, OCS, Cert. DN Date: 10/20/2023 documented in this [facility]WE[facility] History of Present illness Narrative* Filomena Raphael - 09/22/2023 1:15 PM EDT Physical Therapy Called to say she would be a few minutes late for her appt 09/22/23 @ 1:15. . Called PT back at ten minutes late and asked where she was. Said she was still clear across town. We let her know we wouldnot be able to see her due to our late policy. She said OH MY GOD! THAT'S RIDICULOUS. THIS IS NOT OK! Told her sorry but she was over ten minutes late and we would see her at her next appt. documented in this encounterWELLMONT [facility]06-26-2024 History of Present illness Narrative* Kofi Villegas, PT - 08/26/2023 2:30 PM EDT [facility] Outpatient Physical Therapy Daily Note Patient: Karma Whitehead : 1980 CSN #: [id number] Referring Physician: Shawna Dudley DO Date: 08/26/2023 Diagnosis: Z76.89 - Persons encountering health services in other specified circumstances Treatment Diagnosis: pain in cervical and LB Onset Date: 02/18/23 PT Insurance Information: [place] [facility] Total # of Visits Approved: 24 [...] cervical and thoracic paraspinals x8 min to decreasetone Other: IDN to low back B paraspinals, R piriformis static placement x10 min to promote healing response Assessment Assessment: Focused on DTM with heated thermoprobe the cervical and thoracic paraspinals and IDN tolower back and R piriformis per patient request. Held other modalities per patient since she is notfeeling too bad today. Activity Tolerance Activity Tolerance: [...] the cervical area and her LB area.-met Correction Goals Time Frame for Tax Advisor Goals : 6 visits Correction Goal 1: Pt will be independent and compliant with exercise while maintaining improved posture 50% of the time. Correction Goal 2: Pt will be able to perform full cervical ROM without increase complaints of baseline pain with initiation to demonstrate imporved control of pain. Tax Advisor Goal 3: Pt will report 40% improvement in overall complaints and improved tolerance to her job tasks. Minutes Tracking: Time In: 1430 Time Out: 1500 Minutes: 30 Timed Code Treatment Minutes: 29 Minutes Kofi Villegas, PT, DPT Date: 08/26/2023 documented in this encounterBON [place] [id number] History of Present illness Narrative* Filomena Raphael - 08/21/2023 10:45 AM EDT Physical Therapy Disregard the no show note on 08/17. This was added in error. * Jan Olmstead PT - 08/21/2023 10:45 AM EDT [facility] Outpatient Physical Therapy Daily Note Patient: Karma Whitehead : 1980 CSN #: [id number] Referring Physician: Shawna Dudley DO Date: 08/21/2023 Treatment Diagnosis: pain in cervical and LB Onset Date: 02/18/23 PT Insurance Information: [facility] Total # of Visits Approved: 24 [...] the cervical area and her LB area. Tax Advisor Goals Time Frame for Correction Goals : 6 visits Correction Goal 1: Pt will be independent and compliant with exercise while maintaining improved posture 50% of the time. Tax Advisor Goal 2: Pt will be able to perform full cervical ROM without increase complaints of baseline pain with initiation to demonstrate imporved control of pain. Correction Goal 3: Pt will report 40% improvement in overall complaints and improved tolerance to her job tasks. Tax Advisor Goal 4: Pt kvng UE strength will be 5/5 without increasing pain complaints to assist in tolerance of lifting and carrying. Minutes Tracking: Time In: 1045 Time Out: 1116 Minutes: 31 Timed Code Treatment Minutes: 29 Minutes Jan Olmstead PT, DPT Date: 08/21/2023 [facility] History of Present illness Narrative* Jan Olmstead, PT - 08/11/2023 1:15 PM EDT [facility] Outpatient Physical Therapy Daily Note Patient: Karma Whitehead : 1980 CSN #: [id number] Referring Physician: Shawna Dudley DO Date: 08/11/2023 Diagnosis: Z76.89 - Persons encountering health services in other specified circumstances Treatment Diagnosis: pain in cervical and LB Onset Date: 02/18/23 PT Insurance Information: [facility] Total # of Visits Approved: 24 [...] interventions including dry needling and heated thermoprobe whichthe patient reports gives her about a week [...] the cervical area and her LB area. Correction Goals Time Frame for Tax Advisor Goals : 6 visits Correction Goal 1: Pt will be independent and compliant with exercise while maintaining improved posture 50% of the time. Correction Goal 2: Pt will be able to perform full cervical ROM without increase complaints of baseline pain with initiation to demonstrate imporved control of pain. Correction Goal 3: Pt will report 40% improvement in overall complaints and improved tolerance to her job tasks. Correction Goal 4: Pt kvng UE strength will be 5/5 without increasing pain complaints to assist in tolerance of lifting and carrying. Minutes Tracking: Time In: 1330 Time Out: 1400 Minutes: 30 Timed Code Treatment Minutes: 28 Minutes Jan Olmstead PT, DPT Date: 08/11/2023 [facility] History of Present illness Narrative* Filomena Raphael - 07/14/2023 11:15 AM EDT Physical Therapy [facility] Inpatient/Observation/Outpatient Rehabilitation [...] not require skilled services due to: Therapist/Customer Service Sales Associate will attempt to see this patient, at our earliest opportunity. Filomena Raphael Date: 07/14/2023 [facility] Hospital Discharge instructions* Discharge Instructions* Keith Urbina APRN - CNP - 04/20/2023 1:50 PM EST Increase fluid Tylenol Motrin for cough Continue home medications * Attachments The following attachments cannot be sent through Care Everywhere. * Head Injury: Closed: General Info (Armenian) * Cervical Strain (Armenian) [facility] Evaluation note* Encounter Date Diagnosis Assessment Notes Treatment Notes Treatment Clinical Notes Mar, Fatty liver (ICD-10 - K76.0) [...] was counseling done by myself, Rhina ROBERTSON. [facility] Other 01-01-2024 Hospital Discharge instructions* Discharge Instructions* Sil Sullivan DO - 03/02/2023 7:49 PM EST Please follow-up with your GI doctor, trial enema at home, return to the ER for worsening abdominalpain, inability to pass gas, or nausea, vomiting * Attachments The following attachments cannot be sent through Care Everywhere. * Constipation (Armenian) documented in [facility] encounterB[facility] Evaluation [facility]* Encounter Date Diagnosis Assessment Notes Treatment Notes Treatment Clinical Notes Jan, Constipation, unspecified constipation type (ICD-10 - K59.00) Jan, Constipation (ICD-10 - K59.00) [facility] Other 12-07-2023 Evaluation note* Encounter Date Diagnosis [...] R10.9) Jan, Rectal bleed (ICD-10 - K62.5) [facility] Other 11-16-2023 Evaluation note* Encounter Date Diagnosis [...] was counseling done by myself, Rhina ROBERTSON. [facility] Other 11-08-2023 Evaluation note* Encounter Date Diagnosis [...] HAVE PATIENT START DOCUSATE 3 CAPSULES DAILY. [facility] Other 06-29-2023 Evaluation note* Encounter Date Diagnosis Assessment Notes Treatment Notes Treatment Clinical Notes Jul, Obesity (ICD-10 - E66.9) Jul, BMI 34.0-34.9,adult (ICD-10 - Z68.34) Jul, Other Summary of Visi t: (A) discussed continuing to work on small goals until stress decreases and she has the energy to increase goals (B) discussed healhtier choices at [place]- food blog reviewed (C) reviewed food storage tips for keeping produce fresh longer Patient set the following goals: - NEW: continue to choose sugar free beverages- not reviewed [facility] Other 05-30-2023 Evaluation note* Encounter Date Diagnosis [...] was counseling done by myself, Rhina ROBERTSON. [facility] Other 03-21-2023 Evaluation note* Encounter Date Diagnosis [...] was counseling done by myself, Rhina ROBERTSON. [facility] Other 02-07-2023 Evaluation note* Encounter Date Diagnosis [...] set the following goals: not reviewed today [facility] Other 02-07-2023 Evaluation note* Encounter Date Diagnosis [...] was counseling done by myself, Rhina ROBERTSON. [facility] Other 12-28-2022 Evaluation note* Encounter Date Diagnosis [...] patient set personal goal using given handout. [facility] Other 12-27-2022 Evaluation note* Encounter Date Diagnosis [...] was counseling done by myself, Rhina ROBERTSON. [facility] Other 12-01-2022 NotePROCEDURE: XR ANKLE LT MIN [...] Electronically authenticated by: ONEL CLARK Date: 2022-01-29 22:30[facility]12-01-[facility] NotePROCEDURE: XR ANKLE LT MIN 3 V, [...] Electronically authenticated by: ONEL CLARK Date: 2022-01-29 22:30[facility]11-15-[facility] Evaluation note* Encounter Date Diagnosis Assessment Notes [...] was counseling done by myself, Rhina ROBERTSON. [facility] Other 10-05-2022 Evaluation note* Encounter Date Diagnosis [...] was counseling done by myself, Rhina ROBERTSON. [facility] Other 08-30-2022 Evaluation note* Encounter Date Diagnosis Assessment Notes Treatment Notes Treatment Clinical Notes Sep, Fatty liver (ICD-10 - K76.0) ENCOURAGED WEIGHT LOSS Sep, Obesity (BMI 30-39.9) (ICD-10 - E66.9) [facility] Other 08-23-2022 Hospital Discharge instructions* Discharge Instructions* Stanley Almonte PA-C - 10/22/2021 2:03 PM EDT Follow-up with primary care doctor 7 to 10 days for reevaluation. Take Motrin 800 mg as directed with food. Start eardrops left ear as directed. Promptly return to emergency department for new, changing or worsening of symptoms or other concerns. [facility] [employer] Phone: evaluation + Plan note No data available for this section [facility] CenterEvalubayhealth medical center note* Diagnosis Pilonidal cyst- Primary Pilonidal cyst without mention of abscess documented in this encounter [facility] Phone: [email or web address] note* Diagnosis Acute diffuse otitis externa of left ear- Primary documented in this encounter [facility] Phone: [email or web address] noteNo InformationNortClarks [facility] ReSnap Other evalussmvl note* Diagnosis Constipation, unspecified constipation type- Primary documented in this encounter [employer]zzle noteNo assessment information available [facility] Work Phone: Evaluraykh note* Diagnosis Closed head injury, initial encounter- Primary Fall due to slipping on ice or snow, initial encounter Acute cervical myofascial strain, initial encounter documented in this encounter [employer] note* Diagnosis Onset Date Resolution Status ADHD acute BMI 36.0-36.9,adult acute Constipation acute Diabetes mellitus with hyperglycemia acute Fatty liver acute IBS (irritable bowel syndrome) acute Obesity acute Shifting sleep-work schedule, affecting sleep acute Constipation acute Elevated liver function tests acute Fatty liver acute IBS (irritable bowel syndrome) acute [facility] Work Phone: Evaluation note* Diagnosis Dizziness- Primary Dizziness and giddiness [facility]* Diagnosis JADON (obstructive sleep apnea)- Primary Obstructive sleep apnea (adult) (pediatric) Tension headache Chronic bilateral low back pain, unspecified whether sciatica present Paresthesias Disturbance of skin sensation documented in this encounter [facility] HealthcareEvaluation note* Diagnosis JADON (obstructive sleep apnea)- Primary Obstructive sleep apnea (adult) (pediatric) documented in this encounter [facility] HealthcareEvaluation note* Diagnosis Chronic rhinitis documented in this encounter [facility] HealthcareEvaluation note* Diagnosis 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, 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 ([facility])- Primary Vitamin D deficiency Weight gain Other symptoms concerning nutrition, metabolism, and development Encounter for dietary consultation Hyperlipemia, mixed ([facility]) Mixed hyperlipidemia Class 2 severe obesity due to excess calories with serious comorbidity and body mass index (BMI) of 39.0 to 39.9 in adult ([facility]) documented in this encounter [facility] HealthcareEvaluation note* Diagnosis Hormone imbalance Hormone disorder Unspecified endocrine disorder Toenail fungus documented in this encounter [facility] HealthcareEvaluation note* Diagnosis Obstructive sleep apnea- Primary Obstructive sleep apnea (adult) (pediatric) Intolerance of continuous positive airway pressure (CPAP) ventilation Body mass index 34.0-34.9, adult Body Mass Index 34.0-34.9, adult documented in this encounter [facility] HealthcareEvaluation note* Diagnosis Well woman exam with routine gynecological exam Routine gynecological examination Breast cancer screening by mammogram documented in this encounter [facility] HealthcareEvaluation note* Diagnosis Onset Date Resolution Status Admit Date Constipation acute June 02, 9:26am Fatty liver acute June 02 9:26am IBS (irritable bowel syndrome) acute June 02, 2024 9:26am [facility] Work Phone: Evaluation note* Diagnosis Obstructive sleep apnea- Primary Obstructive sleep apnea (adult) (pediatric) Intolerance of continuous positive airway pressure (CPAP) ventilation Class 3 severe obesity with serious comorbidity and body mass index (BMI) of 40.0 to 44.9 in adult, unspecified obesity type documented in this encounter [facility] HealthcareEvaluation note* Diagnosis Nexplanon removal documented in this encounter [facility] HealthcareEvaluation note* Diagnosis Post-traumatic osteoarthritis of left ankle- Primary Midline low back pain without sciatica, unspecified chronicity [facility]* Diagnosis Itching with irritation Nexplanon removal [facility] encounter [facility]* Diagnosis 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, 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- Primary Vitamin D deficiency Weight gain Other symptoms concerning nutrition, metabolism, and development Encounter for dietary consultation Hyperlipemia, mixed (CMS/HCC) Mixed hyperlipidemia Class 3 severe obesity due to excess calories without serious comorbidity with body mass index (BMI) of 40.0 to 44.9 in adult documented in this encounter [facility] HealthcareHistory general Narrative - Reported* Type Description Date Medical History PTSD Medical History DIVERTICULITOUS Surgical History 2 BACK INJECTIONS 2015 Surgical History LEFT ANKLE 2002 Surgical History CHOLECYSTECTOMY Hospitalization History SEE ABOVE [facility] Other HisJobydu general Narrative - Reported* Type Description Date Medical History PTSD Medical History DIVERTICULITOUS Medical History bipolar Medical History ADHD Surgical History 2 BACK INJECTIONS 2014 Surgical History LEFT ANKLE 2002 Surgical History CHOLECYSTECTOMY Surgical History nasal surgery Hospitalization History SEE ABOVE [facility] Other [facility] general Narrative - Reported* Type Description Date Medical History PTSD Medical History DIVERTICULITOUS Medical History bipolar Medical History ADHD Surgical History 2 BACK INJECTIONS 2014 Surgical History LEFT ANKLE 2002 Surgical History CHOLECYSTECTOMY Surgical History nasal surgery Surgical History right Rotator surgery 05-15-22 Hospitalization History SEE ABOVE [facility] Other Hisysgw general Narrative - Reported* Type Description Date Medical History PTSD Medical History DIVERTICULITOUS Medical History bipolar Medical History ADHD Medical History rotator cuff tear Surgical History 2 BACK INJECTIONS 2014 Surgical History LEFT ANKLE 2002 Surgical History CHOLECYSTECTOMY Surgical History nasal surgery Surgical History right Rotator surgery 05-15-22 Hospitalization History SEE ABOVE [facility] Other HisJobydu general Narrative - Reported* Type Description Date Medical History PTSD Medical History DIVERTICULITOUS Medical History bipolar Medical History ADHD Medical History rotator cuff tear Surgical History 2 BACK INJECTIONS 2014 Surgical History LEFT ANKLE 2002 Surgical History CHOLECYSTECTOMY Surgical History nasal surgery Surgical History right Rotator surgery 05-15-22 Surgical History Neck injections/root burnt 12/31 Hospitalization History SEE ABOVE [facility] Other HisJobydu general Narrative - Reported* Type Description Date Medical History PTSD Medical History DIVERTICULITOUS Medical History bipolar Medical History ADHD Medical History rotator cuff tear Surgical History 2 BACK INJECTIONS 2015 Surgical History LEFT ANKLE 2002 Surgical History CHOLECYSTECTOMY Surgical History nasal surgery Surgical History right Rotator surgery 05-15-22 Surgical History Neck injections/root burnt 12/31 Hospitalization History SEE ABOVE Hospitalization History [facility] Katya tejada onstipation 03-02-[address] [facility] ReSn[employer] Other Hospital Discharge instructions* Attachments The following attachments cannot be sent through Care Everywhere. * Pilonidal Abscess (Armenian) [facility] [employer] Work Phone: Hospital Discharge instructions No data available for this section [facility] CenterProgress note No data available for this section [facility] CenterReason for referral (narrative)* Consultation (Routine) - Pending Review Specialty Diagnoses / Procedures Referred By Karla cuadra Referred To Contact Otolaryngology Diagnoses JADON (obstructive sleep apnea) Procedures [place] OFFICE/OUTPATIENT NEW HIGH MDM 60 MINUTES Brittany Neville NP [address] [place] [address] Referral ID Status Reason Start Date Expiration Date Visits Requested Visits Authorized [id number] Pending Review Specialty Services Required 11/30/2023 05/28/2024 [...] am IBS (irritable bowel syndrome) May 9:26am Chief Complaint Admit Date 6 month follow up June 02, 2024 9:26 am Sleep Apnea July 27, 2024 10:17 am Reason for Visit Admit Date Constipation June 02, 2024 9:26 am Fatty liver June 02, 2024 9:26 am GERD (gastroesophageal reflux disease) A pril 2024 9:26am IBS (irritable bowel syndrome) May 9:26am Chief Complaint Admit Date 6 month follow up June 02, 2024 9:26 am Sleep Apnea July 27, 2024 10:17 am Discuss Probiotic August 08, 2024 1:22p m Reason for Visit Admit Date Constipation June 02, 2024 9:26 am Fatty liver June 02, 2024 9:26 am GERD (gastroesophageal reflux disease) A pril 2024 9:26am IBS (irritable bowel syndrome) May 9:26am GERD (gastroesophageal reflux disease) J [facility] 2024 1:22pm Irritable bowel syndrome with constipati on August 08, 2024 1:22pm Additional Source Comments INFORMATION SOURCE (unrecogn ized section and content) DATE CREATED AUTHOR 08/26/2017 [facility] DATE CREATED AUTHOR AUTHOR'S ORGANIZ ATION 05/30/2022 [facility] DATE CREATED AUTHOR AUTHOR'S ORGANIZ ATION 01/18/2023 Kumar Ribera [facility] DATE CREATED AUTHOR AUTHOR'S ORGANIZ ATION 06/04/2023 [facility] DATE CREATED AUTHOR AUTHOR'S ORGANIZ ATION [facility] DATE CREATED AUTHOR AUTHOR'S ORGANIZ ATION 12/22/2023 [facility] DATE CREATED AUTHOR AUTHOR'S ORGANIZ ATION 07/10/2024 [facility] DATE CREATED AUTHOR AUTHOR'S ORGANIZ ATION 07/17/2024 [facility] DATE CREATED AUTHOR AUTHOR'S ORGANIZ ATION 07/30/2024 [facility] DATE CREATED AUTHOR AUTHOR'S ORGANIZ ATION 08/05/2024 [facility] DATE CREATED AUTHOR AUTHOR'S ORGANIZ ATION 08/08/2024 [facility] Reason for Visit (unrecogniz ed section [...] Apnea Inspire Consult Reason Comments Gynecologic Exam Reason Comments Sleep Apnea S/p DISE Reason Comments Nexplanon removal Reason Comments Ankle Pain Pt to ED from home w ith c/o left ankle pain. Denies any fall or injury.Onset of pain x2-3 days ago. Pt has been wearing a splint.Pt fell at work x1 month ago. Pt evaluated and treated at [facility].Pt fell again x2 weeks ago. Pt evaluated at [facility] and treated for right ankle and wrist fracture. Pt has MRI scheduled.Pt currently being treated by Pain Management. Reason Onset Date Comments Advice Only 07/20/2024 Reason Comments Follow-up Ordered Prescriptions (unrec ognized section and content) Prescription Sig Dispensed Refills Start Date End Da te clindamycin (CLEOCIN) 150 MG capsule Take 3 capsules by mouth in the morning and 3 capsules at noon and 3 capsules before bedtime. Do all this for 10 days. 90 capsule 0 10/12/2021 10/22/2021 Prescription Sig Dispensed Refills Start Date End Da te kwmpyngd-uxbzteuav-ohklhc ortisone (CORTISPORIN) 3.5-00183-[address] 4 drops into the [...] Care Teams (unrecognized sec tion and content) Program Director Scouting Relationship Specialty Start Date End Date Shawna Dudley DO [address] [place], [place] [id number] PCP - General Family Medicine 10/12/21 Program Director Scouting Relationship Specialty Start Date End Date Shawna Dudley DO [address] [place], [place] [id number] PCP - General Family Medicine 10/12/21 Program Director Scouting Relationship Specialty Start Date End Date Shawna Dudley DO [address] [place], [place] [id number] PCP - General Family Medicine 10/12/21 Program Director Scouting Relationship Specialty Start Date End Date Shawna Dudley DO [address] [place] [address] PCP - General Family Medicine 10/12/21 Team Status: Active Member Role Status Dates NON STAFF Primary Care Provider Active Team Status: Active Member Role Status Dates Yo Blank MD Attending Provider Active S tart: March 05, 2023 Shawna Bogdan , DO Primary Care Provider Active Start: March 05, 2023 Team Status: Active Member Role Status Dates Yo Blank MD Attending Provider, Other Provider Active Start: March 18, 2023 NON STAFF Primary Care Provider Active Start: March 18, 2023 Program Director Scouting Relationship Specialty Start Date End Date Rumschlag, Shawna, DO [address] [place], [place] [id number] PCP - [facility] Medicine 10/12/21 Program Director Scouting Relationship Specialty Start Date End Date Rumschlag, Shawna, DO [address] [place] [address] PCP - General Family Medicine 10/12/21 Team Status: Active Member Role Status Dates Rory Driver [facility]- Primary Care Provider Active Team Status: Inactive Member Role Status Dates Gayathri Adams APRN Attending Provider Active Start: May 21, 2023 End: May 21, 2023 Rory Driver , [employer]- Primary Care Provider Active Start: May 21, 2023 End: May 21, 2023 Team Status: Inactive Member Role Status Dates Jan Garg APRN Attending Provider Active Start: May 21, 2023 End: May 21, 2023 Rory Driver , [facility]- Primary Care Provider Active Start: May 21, 2023 End: May 21, 2023 Program Director Scouting Relationship Specialty Start Date End Date Rumschlag, Shawna, DO [address] [place], [place] [id number] PCP - [facility] Family Medicine 10/12/21 Program Director Scouting Relationship Specialty Start Date End Date Rumschlag, Shawna, DO [address] [place] [address] PCP - General Family Medicine 10/12/21 Program Director Scouting Relationship Specialty Start Date End Date Loreto Mcneal APRN - MANDARIN TEACHER [address] [facility] [place] [address] PCP - General 11/11/23 Program Director Scouting Relationship Specialty Start Date End Date Loreto Mcneal SAIL LAY OUT WORKER - MANDARIN TEACHER [address] [facility] [place] [address] PCP - General 11/11/23 Program Director Scouting Relationship Specialty Start Date End Date Loreto Mcneal SAIL LAY OUT WORKER - MANDARIN TEACHER [address] [place] [address] PCP - General 11/11/23 Program Director Scouting Relationship Specialty Start Date End Date Loreto Mcneal SAIL LAY OUT WORKER - MANDARIN TEACHER [address] [place] [address] PCP - General 11/11/23 Program Director Scouting Relationship Specialty Start Date End Date Shawna Dudley DO [address] [place] [address] PCP - General Family Medicine 04/14/22 Key Andrea, MANDARIN TEACHER [address] [place] [address] Referring Physician Family Medicine 08/13/23 Program Director Scouting Relationship Specialty Start Date End Date Key Andrea, MANDARIN TEACHER [address] [place] [address] Referring Physician Family Medicine 08/13/23 Program Director Scouting Relationship Specialty Start Date End Date Key Andrea, MANDARIN TEACHER [address] [place] [address] Referring Physician Family Medicine 08/13/23 Program Director Scouting Relationship Specialty Start Date End Date Key Andrea, MANDARIN TEACHER [address] [place] [address] Referring Physician Family Medicine 08/13/23 Program Director Scouting Relationship Specialty Start Date End Date Shawna Dudley DO [address] [place] [address] PCP - General Family Medicine 04/14/22 Key Andrea NP [address] [place] [address] Referring Physician Family Medicine 08/13/23 Team Status: Inactive Member Role Status Dates Rory Driver [facility] Primary Care Provider Active Start: January 21, 2024 End: January 21, 2024 MELE Best Attending Provider Active Start: January 21, 2024 End: January 21, 2024 Team Status: Inactive Member Role Status Dates Rory Driver [facility] Primary Care Provider Active Start: March 09, 2024 End: March 09, 2024 Mio Marroquin DO Attending Provider Active S tart: March 09, 2024 End: March 09, 2024 Program Director Scouting Relationship Specialty Start Date End Date Shawna Dudley DO [address] [place], [place] [phone] PCP - General Family Medicine 04/14/22 Key Andrea NP [address] [place] [address] Referring Physician Family Medicine 08/13/23 Program Director Scouting Relationship Specialty Start Date End Date Rumschlag, Shawna, DO [address] [place] [address] PCP - General Family Medicine 04/14/22 Key Andrea, MANDARIN TEACHER [address] [place] [address] Referring Physician Family Medicine 08/13/23 Program Director Scouting Relationship Specialty Start Date End Date Rumschlag, Shawna, DO [address] [place] [address] PCP - General Family Medicine 04/14/22 Key Andrea, MANDARIN TEACHER [address] [place] [address] Referring Physician Family Medicine 08/13/23 Program Director Scouting Relationship Specialty Start Date End Date Rumschlag, Shawna, DO [address] [place] [address] PCP - General Family Medicine 04/14/22 Key Andrea, MANDARIN TEACHER [address] [place] [address] Referring Physician Family Medicine 08/13/23 Program Director Scouting Relationship Specialty Start Date End Date Rumschlag, Shawna, DO [address] [place] [address] PCP - General Family Medicine 04/14/22 Key Andrea, MANDARIN TEACHER [address] [place] [address] Referring Physician Family Medicine 08/13/23 Program Director Scouting Relationship Specialty Start Date End Date Rumschlag, Shawna, DO [address] [place] [address] PCP - General Family Medicine 04/14/22 Key Andrea, JO ANN [address] [place] [address] Referring Physician Family Medicine 08/13/23 Program Director Scouting Relationship Specialty Start Date End Date Vicky DudleytyDO [address] [place] [address] PCP - General Family Medicine 04/14/22 Key Andrea, JO ANN [address] [place] [address] Referring Physician Family Medicine 08/13/23 Laila Santos DO [address] [place] [address] Referring Physician Neurology 05/10/24 Program Director Scouting Relationship Specialty Start Date End Date Shawna Dudley DO [address] [place] [address] PCP - General Family Medicine 04/14/22 Key Andrea, JO ANN [address] [place] [address] Referring Physician Family Medicine 08/13/23 Laila Santos DO [address] [place] [address] Referring Physician Neurology 05/10/24 Team Status: Active Member Role Status Dates Rory Driver , [facility]- Primary Care Provider Active Start: April 04, 2024 Matt Flores DO Attending Provider Active Sta rt: April 04, 2024 Team Status: Inactive Member Role Status Dates Rory Driver , [facility]- Primary Care Provider Active Start: June 02, 2024 End: June 02, 2024 Jan Garg APRN Attending Provider Active Start: June 02, 2024 End: June 02, 2024 Program Director Scouting Relationship Specialty Start Date End Date Vicky DudleytyDO [address] [place] [address] PCP - General Family Medicine 04/14/22 Key Andrea, MANDARIN TEACHER [address] [place] [address] Referring Physician Family Medicine 08/13/23 Laila Santos DO [address] [place] [address] Referring Physician Neurology 05/10/24 Program Director Scouting Relationship Specialty Start Date End Date Vicky DudleytyDO [address] [place] [address] PCP - General Family Medicine 04/14/22 Key Andrea, JO ANN [address] [place] [address] Referring Physician Family Medicine 08/13/23 Laila Santos DO [address] [place] [address] Referring Physician Neurology 05/10/24 Program Director Scouting Relationship Specialty Start Date End Date Loreto Mcneal APRN - MANDARIN TEACHER [address] [place] [address] [place] [address] PCP - General 11/11/23 Team Status: Active Member Role Status Dates Loreto Mcneal APRN MANDARIN TEACHER-C Primary Care Provide r Active Team Status: Inactive Member Role Status Dates Mendez Cardoso DO Attending Provider Active S tart: July 27, 2024 End: July 27, 2024 Loreto Mcneal APRN MANDARIN TEACHER-Terrell Primary Care Provide r Active Start: July 27, 2024 End: July 27, 2024 Program Director Scouting Relationship Specialty Start Date End Date Shawna Dudley DO [address] [facility] [place] [address] PCP - General Family Medicine 04/14/22 Key Andrea NP [address] [place] [address] Referring Physician Family Medicine 08/13/23 Laila Santos DO [address] [place] [address] Referring Physician Neurology 05/10/24 Program Director Scouting Relationship Specialty Start Date End Date Shawna Dudley DO [address] [place] [address] PCP - General Family Medicine 04/14/22 Key Andrea NP [address] [place] [address] Referring Physician Family Medicine 08/13/23 Laila Santos DO [address] [place] [address] Referring Physician Neurology 05/10/24 Program Director Scouting Relationship Specialty Start Date End Date Shawna Dudley DO [address] [place] [address] PCP - General Family Medicine 04/14/22 ZullyKey Robb NP [address] [place] [address] Referring Physician Family Medicine 08/13/23 Laila Santos DO [address] [place] [address] Referring Physician Neurology 05/10/24 Team Status: Inactive Member Role Status Dates Jan Garg APRN Attending Provider Active Start: August 08, 2024 End: August 08, 2024 Loreto Mcneal APRN MANDARIN TEACHER-C Primary Care Provide r Active Start: August 08, 2024 End: August 08, 2024 Goals (unrecognized section and content) Goals [...] BASED ON THE PRIMARY CLINICAL RECORDS. [facility]. provides no warranty or guarantee of the accuracy or completeness of information in this document.
--- NOTE | 2024-08-09 00:12 | PC.NURSE ---
i gave this partient verbal and written discharge orders along with 1 x-ray disc and this patient voices yes to understanding these. at time of discharge this patient voices no concerns or needs and this patient shows no signs of distress
== END 2024-08-09 00:11 | disposition home or self-care (01) ==
PROVIDERS: Emergency Provider Internal Medicine; PCP Nurse Practitioner Family
DX: M25.572 Pain in left ankle and joints of left foot (principal); Z90.49 Acquired absence of other specified parts of digestive tract
CPT/HCPCS: 73060; 73610; 99284

== ENCOUNTER 2024-09-01 12:29 | Outpatient (OUT) | payer OTHER, SELFPAY ==
--- NOTE | 2024-09-01 13:01 | XR_ITS ---
The [place] [id number] Patient Name: PEE GUTIERREZ MRN: [id number] date: 1980 Sex: F Assigned Patient Location: [facility] Current Patient Location: LAB Accession/Order Number: [id number] Exam Date: 09/01/2024 13:35 Report Date: 09/01/2024 13:36 At the request of: JOY ARAMBULA DPPrecious Procedure: XR ankle RT min 3V RIGHT ANKLE - 3 views CLINICAL HISTORY: Ankle pain after fall 1.5 weeks ago. COMPARISON: None FINDINGS: Soft tissue swelling is noted. There appears be a comminuted fracture involving the lateral malleolus. Ankle mortise appears intact. Plantar spurring. XR/XR ankle RT min 3V IMPRESSION: COMMINUTED FRACTURE INVOLVING THE LATERAL MALLEOLUS. THERE IS ASSOCIATED SOFT TISSUE SWELLING. Impression dictated by: Alin Ornelas Jr., DRosyORosy 09/01/2024 1:36 PM Dictation Location: [place] [address] Electronically authenticated by: [id number] Y Date: 09/01/2024 13:36
== END 2024-09-01 12:30 | disposition home or self-care (01) ==
LOC: RAD 12:31
PROVIDERS: PCP Nurse Practitioner Family; Visit Provider Podiatrist Foot & Ankle Surgery
DX: M25.571 Pain in right ankle and joints of right foot (principal); M25.471 Effusion, right ankle; S82.64XA Nondisplaced fracture of lateral malleolus of right fibula, initial encounter for closed fracture
CPT/HCPCS: 73610

== ENCOUNTER 2024-09-15 06:47 | Outpatient (OUT) | payer OTHER, SELFPAY ==
--- OUTSIDE RECORDS SUMMARY | 2024-06-14 07:30 | XMS_ITS ---
Author Organization [facility] in [place] Address [address] [place] [address] Care Team Providers Care Show Horse Driver Name Role Phone Villa CHERRY, Rory Primary Care Provider Unavailab Carmen Cuellar Unavailable [phone] REASON FOR VISIT MD Encounters Encounter Location Date Provider Diagnosis [facility] [address] [place] [address] 06/14/2024 Carmen Fisher Plan Of Treatment Next Appt Details Provider Name:Carmen Fisher , 09/20/2024 11:30:00 AM, [address] [place], [address], Progress Notes * Karma WHITEHEADDOB:[birth year] (43 yo F)Acc No.[id number]:06/14/2024 UNLOCKED PROGRESS NOTE Progress Notes Patient: Karma MUNOZ Provider: Kerline Fisher M.D. :1980 A ge:43 Y S ex:Female Date:06/14/2024 Address:[address] [place] [id number] Pcp:Rory Driver NP Subjective: * Chief Complaints: * 1 . MD. * Medical History: Objective: * Vitals: Assessment: Plan: * Treatment: * * Electronic signature of Jonny Fisher MD, [id number] on 09/15/2024 at 06:48 AM EDT Sign off status: Pending Visit Status: A [facility] (Voice) * Provider: Kerline Fisher M.D. Date: 0 06/14/2024 Generated for Travis shoemaker/Catherine/Sonal on: 0 09/15/2024 06:48 AM EDT
--- OUTSIDE RECORDS SUMMARY | 2024-06-15 04:30 | XMS_ITS ---
Author Organization [facility] Address [address] [place] [address] Care Team Providers Care Stripper And Taper Name Role Phone Chinyere Calix Primary Care Provider [phone] REASON FOR VISIT 3 month f/u Encounters Encounter Location Date Provider Diagnosis [facility] [address] [place] [address] 06/15/2024 Chinyere Calix Plan Of Treatment Next Appt Details Provider Name:Chinyere Calix, 09/20/2024 03:45:00 PM, [address], [place], [address], Progress Notes * PEE WHITEHEADDOB:[birth year] (43 yo F)Acc No.[id number]:06/15/2024 Behavioral Health Patient: Miryam PEE CROFT Appointment Provider: Precious Calix :1980 A ge:43 Y S ex:Female Date:06/15/2024 Address:[facility] [address] [facility] Subjective: * Chief Complaints: * 1 . 3 month f/u. * Medical History: Objective: * Vitals: Assessment: Plan: * Treatment: * Images: * Electronic signature of FAWN Acosta FNP on 09/15/2024 at 06:48 AM EDT Sign off status: Pending * Appointment Provider: Precious Calix Date: 0 06/15/2024 Generated for Travis shoemaker/Catherine/Magdalenoitting on: 0 09/15/2024 06:48 AM EDT
--- OUTSIDE RECORDS SUMMARY | 2024-08-25 05:30 | XMS_ITS ---
Author Organization [facility] vices Address [address] [place] [phone] Care Team Providers Care Senior Production Planner Name Role Phone Loreto Mcneal Primary Care Provider [phone] Monique Nuñez Unavailable [phone] Deepika Banks Unavailable [phone] REASON FOR VISIT Recall (A) 43 Social History Sex Assigned At : Social History Observation Description Sex Assigned At Female Encounters Encounter Location Date Provider Diagnosis [facility] [address] [place], [place] [phone] 08/25/2024 Deepika Banks Plan Of Treatment Next Appt Details Provider Name:Loreto ludwig, 02/27/2025 08:45:00 AM, [address] [place] [address], [phone], Provider Name:Fara Sampson , 03/16/2025 10:45:00 AM, [address] [place] [address], [phone], Progress Notes * Karma SR ADOB: (43 yo F)Acc No.[id number]:08/25/2024 Patient: Miryam Karma KOWALSKI Provider: Ana Banks DDS :1980 A ge:43 Y S ex:Female Date:08/25/2024 Address:[address] [place], [place]-[address] Pcp:Loreto Mcneal Subjective: * Chief Complaints: * 1 . Recall (A) 43. * Medical History: Objective: * Vitals: Assessment: Plan: * Treatment: * Billing Information: * Visit Code: * Procedure Codes: * Electronic signature of Brenna Banks DDS on 09/15/2024 at 06:49 AM EDT Sign off status: Pending * Provider: Ana Banks DDS Date: 0 08/25/2024 Generated for Travis Hernandez/Sonal on: 09/15/2024 06:49 AM EDT
--- OUTSIDE RECORDS SUMMARY | 2024-09-01 10:45 | XMS_ITS | Encounter Summary ---
Author Organization [facility] Address [address] [place] [place] [address] Care Team Providers Care Marsh Buggy Operator Name Role Phone Key Andrea PURE PAK MACHINE OPERATOR Unavailable Shawna Dudley DO Primary Care Provider [phone] Sasha Santos DO Unavailable [phone] Mendez Ortiz DO Unavailable [phone] Reason for Visit * Reason Comments Post-op Having problems with inspire Encounter Details Date Type Department Care Team (Late st Contact Info) Description 09/01/2024 10:45 AM EDT Office Visit NATALIIA RASMUSSEN [address] [place] [phone] Mendez Ortiz DO [address] [place] [address] Obstructive sleep apnea (Primary Dx) Social History Tobacco Use Types Packs/Day Years Used Date Smoking Tobacco: Never Smokeless Tobacco: Never Tobacco Cessation:Counseling Given: Not Answered Alcohol Use Standard Drinks/Week Comments Never 0 [...] Sign Reading Time Taken Comments Blood Pressure - - Pulse - - Temperature - - Respiratory Rate - - Oxygen Saturation - - Inhaled Oxygen Concentration - - Weight 104 kg (230 lb) 09/01/2024 10:52 AM EDT Height 160 cm (5' 3 ) 09/01/2024 10:52 AM EDT Body Mass Index 40.74 09/01/2024 10:52 AM EDT documented in this encounter Progress Notes * Mendez Ortiz DO - 09/01/2024 10:45 AM EDT Subjective Patient ID: Karma Banegas is a 43 y.o. female who presents for Post-op (Having problems withinspire) HPI This patient presents for recheck. She is status post placement of hypoglossal nerve stimulator. Having discomfort around the area of her chest incision. Motion of her arm causes some sharp discomfort. No bleeding or wound difficulties. Presents for evaluation. Review of Systems Patient has noticed sharp pain in the area of her incision with motion of her arm or turning her torso. This is likely from motion of her pectoralis muscle. Rest of her review of systems is unchanged Objective ENT Physical Exam The area of the incision is healing quite nicely. Her surgical glue is falling off. Mild hyperemia around her sutures. She will start using Neosporin. Assessment/Plan Diagnoses and all orders for this visit: Obstructive sleep apnea Comments: Improvement with conservative care. Patient will start applying topical heat to the area of her incision. She will also use Neosporin on the area of healing incision. We will see her back as scheduled in 1 year documented in this encounter Plan of Treatment Upcoming Encounters Date Type Department Care Team (Late st Contact Info) Description 12/01/2024 11:00 AM EDT Office Visit [facility] [address] [place] [phone] Cleo Zambrano MD [address], [address] [place] [address] 05/31/2025 1:00 PM EDT Office Visit [facility] [address] [place] [address] Roel Garber DO [address] [place] [address] [place] [address] 08/18/2025 2:00 PM EDT Office Visit [facility] [place] [address] [place] [phone] Mendez Ortiz DO [address] [place] [address] documented as of this encounter Visit Diagnoses Diagnosis Obstructive sleep apnea- Primary Obstructive sleep apnea (adult) (pediatric) documented in this encounter Care Teams Marsh Buggy Operator Relationship Specialty Start Date End Date Shwana Dudley DO [address] [place] [address] PCP - General Family Medicine 04/14/22 Key Andrea, JO ANN [address] [place] [address] Referring Physician Family Medicine 08/13/23 Sasha Santos DO [address] [place] [address] Referring Physician Neurology 05/10/24 Mendez Ortiz DO [address] [place] [address] Otolaryngology 08/19/24 documented as of this encounter
--- OUTSIDE RECORDS SUMMARY | 2024-09-13 07:00 | XMS_ITS ---
Author Organization The [facility] in [place] Address [address] [place] [address] Care Team Providers Care Chemistry Laboratory Technician Name Role Phone Villa CHERRY, Rory Primary Care Provider Unavailab Carmen Cuellar Unavailable [phone] REASON FOR VISIT MD Encounters Encounter Location Date Provider Diagnosis The [facility] [address] [place] [address] 09/13/2024 Carmen Fisher Plan Of Treatment Next Appt Details Provider Name:Carmen Fisher , 09/20/2024 11:30:00 AM, [address] [place], [address], Progress Notes * Karma WHITEHEADDOB:[birth year] (43 yo F)Acc No.[id number]:09/13/2024 UNLOCKED PROGRESS NOTE Progress Notes Patient: Karma MUNOZ Provider: Kerline Fisher M.D. :1980 A ge:43 Y S ex:Female Date:09/13/2024 Address:[address] [place] [address] Pcp:Rory Driver NP Subjective: * Chief Complaints: * 1 . MD. * Medical History: Objective: * Vitals: Assessment: Plan: * Treatment: * * Electronic signature of Jonny Fisher MD, [id number] on 09/15/2024 at 06:49 AM EDT Sign off status: Pending Visit Status: C ANC (Cancelled) * Provider: Kerline Fisher M.D. Date: 0 09/13/2024 Generated for Travis shoemaker/Catherine/Sonal on: 0 09/15/2024 06:49 AM EDT
--- OUTSIDE RECORDS SUMMARY | 2024-09-13 07:30 | XMS_ITS ---
Author Organization The [facility] in [place] Address [address] [place] [address] Care Team Providers Care Sugar Refiner Name Role Phone Villa CHERRY, Rory Primary Care Provider Unavailab Carmen Cuellar Unavailable [phone] REASON FOR VISIT MD Encounters Encounter Location Date Provider Diagnosis The [facility] [address] [place] [address] 09/13/2024 Carmen Fisher Plan Of Treatment Next Appt Details Provider Name:Carmen Fisher , 09/20/2024 11:30:00 AM, [address] [place], [address], Progress Notes * Karma WHITEHEADDOB:[birth year] (43 yo F)Acc No.[id number]:09/13/2024 UNLOCKED PROGRESS NOTE Progress Notes Patient: Karma MUNOZ Provider: Kerline Fisher M.D. :1980 A ge:43 Y S ex:Female Date:09/13/2024 Address:[address] [place] [address] Pcp:Rory Driver NP Subjective: * Chief Complaints: * 1 . MD. * Medical History: Objective: * Vitals: Assessment: Plan: * Treatment: * * Electronic signature of Jonny Fisher MD, [id number] on 09/15/2024 at 06:49 AM EDT Sign off status: Pending Visit Status: C ANC (Cancelled) * Provider: Kerline Fisher M.D. Date: 0 09/13/2024 Generated for Travis shoemaker/Catherine/Sonal on: 0 09/15/2024 06:49 AM EDT
--- OUTSIDE RECORDS SUMMARY | 2024-09-15 06:48 | XMS_ITS | Encounter Summary ---
Author Organization [facility] tem Address [id number] [address] [place] [address] Care Team Providers Care Punch Card Operator Name Role Phone Services, [facility] Primary Care Provider Reason for Visit * Reason Onset Date Comments denial 09/22/2018 Encounter Details Date Type Department Care Team (Late st Contact Info) Description 09/22/2018 Telephone [facility] [address] [place] [address] Gil Alba PA [address] [facility], 2[address] [place], [place] [id number] denial Social History Tobacco Use Types Packs/Day [...] as of this encounter Plan of Treatment Not on file documented as of this encounter Visit Diagnoses [...] documented as of this encounter Care Teams Punch Card Operator Relationship Specialty Start Date End Date Services, [facility] [address] [place], [place] PCP - General Family Medicine 10/05/23 documented as of this encounter
--- OUTSIDE RECORDS SUMMARY | 2024-09-15 06:48 | XMS_ITS | Encounter Summary ---
Author Organization [facility] Address [id number] [address] 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 I did apologize to the patient and explain that unfortunately that there is a little over a year wait to be scheduled from pts consult date (10/08/23) for breast reductions. Also explained that per Dr. Houston notes he would do the breast reductionthen once she is healed address the panniculectomy. I also explained that there is about 8 people waiting ahead of her to be scheduled for their surgery. PT was understanding. documented in this encounter Plan of Treatment Not on file documented as of this encounter Visit Diagnoses Not on filedocumented in this encounter Additional Health Concerns Assessment Noted Time PHQ-9 Depression Total Score: 0 05/03/19 21 3:00 PM EST A Body Mass Index follow-up plan has been documented for the patient 02/10/2020 2:00 PM EST documented as of this encounter Care Teams Tenon Machine Operator Relationship Specialty Start Date End Date Services, [place] [id number] [place], [place] PCP - General Family Medicine 10/05/23 documented as of this encounter
--- OUTSIDE RECORDS SUMMARY | 2024-09-15 06:48 | XMS_ITS | Encounter Summary ---
Author Organization [facility] tem Address [id number] [address] [place] [address] Care Team Providers Care Safety Clothing And Equipment Developer Name Role Phone Services, [facility] Primary Care Provider Encounter Details Date Type Department Care Team (Late st Contact Info) Description 04/08/2022 Telephone [facility] [address] [place] [address] Patricia Clay RN Social History Tobacco Use [...] up with request for medical bra prescription. [employer] Social [employer] Teacher spoke with Mohsen who states he is [...] documented as of this encounter Care Teams Safety Clothing And Equipment Developer Relationship Specialty Start Date End Date [facility], [address] [place], [place] PCP - General Family Medicine 10/05/23 documented as of this encounter
--- OUTSIDE RECORDS SUMMARY | 2024-09-15 06:48 | XMS_ITS | Encounter Summary ---
Author Organization [facility] Address [address] [place] [address] Care Team Providers Care Casey Saw Operator Name Role Phone Zully, Key SELF SEALING FUEL TANK BUILDER Unavailable Shawna Dudley DO Primary Care Provider [phone] Sasha Santos DO Unavailable [phone] Mendez Ortiz DO Unavailable [phone] Encounter Details Date Type Department Care Team (Late st Contact Info) Description 06/07/2024 Abstract [facility] [address] [facility] [place] [address] Bela Ribeiro LPN Social History Tobacco [...] 12/01/2024 11:00 AM EDT Office Visit [facility] [address] [place] [address] Cleo Zambrano MD [address] [place] [address] 05/31/2025 1:00 PM EDT Office Visit [facility] [address] [facility] [place] [address] Roel Garber DO [address] [facility] [place] [address] 08/18/2025 2:00 PM EDT Office Visit [facility] [address] [place] [phone] Mendez Ortiz DO [address] [place] [address] documented as of this encounter Visit Diagnoses Not on filedocumented in this encounter Care Teams Casey Saw Operator Relationship Specialty Start Date End Date Shawna Dudley DO [address] [place], [place] [phone] PCP - General Family Medicine 04/14/22 Key Andrea NP [address] [place] [address] Referring Physician Family Medicine 08/13/23 Sasha Santos DO [address] [place] [place], [place] [phone] Referring Physician Neurology 05/10/24 Mendez Ortiz DO [address] [place] [address] Otolaryngology 08/19/24 documented as of this encounter
--- OUTSIDE RECORDS SUMMARY | 2024-09-15 06:48 | XMS_ITS | Encounter Summary ---
Author Organization [facility] Sys tem Address [id number] [address] [place] [address] Care Team Providers Care Management Lead Name Role Phone Services, [facility] Primary Care Provider Encounter Details Date Type Department Care Team (Late st Contact Info) Description 02/17/2020 Orders Only [facility] [address] [place] [phone] Zelalem Pathak MD [address]. Provider retired 05/31/24 [place], [place] [id number] Social History Tobacco Use Types Packs/Day Years [...] Time PHQ-9 Depression Total Score: 0 02/16/20 9:00 AM EST A Body Mass Index follow-up plan has been documented for the patient 02/10/2020 2:00 PM EST documented as of this encounter Care Teams Management Lead Relationship Specialty Start Date End Date [facility], [facility] [address] [place], [place] PCP - General Family Medicine 10/05/23 documented as of this encounter
--- OUTSIDE RECORDS SUMMARY | 2024-09-15 06:48 | XMS_ITS | Encounter Summary ---
Author Organization [facility] s tem Address [id number] [address] [place] [address] Care Team Providers Care Credit Advisor Name Role Phone Services, [facility] Primary Care Provider Encounter Details Date Type Department Care Team (Late st Contact Info) Description 07/13/2018 Telephone [facility] Family Medicine [address] [place] [phone] Amy Cerna LPN Social History Tobacco Use [...] documented as of this encounter Care Teams Credit Advisor Relationship Specialty Start Date End Date [facility], [facility] [address] [place] PCP - General Family Medicine 10/05/23 documented as of this encounter
--- OUTSIDE RECORDS SUMMARY | 2024-09-15 06:48 | XMS_ITS | Encounter Summary ---
Author Organization [facility] Address [address] [facility] [place] [address] Care Team Providers Care Basic Acoustic Analyst Name Role Phone Zully, Key GRAPHIC COORDINATOR Unavailable Shawna Dudley DO Primary Care Provider [phone] Sasha Santos DO Unavailable [phone] Mendez Ortiz DO Unavailable Encounter Details Date Type Department Care Team (Late Contact Info) Description 06/01/2024 Abstract [facility] [address] [place] [address] Roel Garber, DO [address] [address] [place], [place] [phone] Social History Tobacco Use Types Packs/Day Years [...] Upcoming Encounters Date Type Department Care Team ([facility] Contact Info) Description 12/01/2024 11:00 AM EDT Office Visit [facility] [address] [place] [address] Cleo Zambarno MD [address] [place] [address] 05/31/2025 1:00 PM EDT Office Visit [facility] [address] [place] [phone] Roel Garber, DO [address] [facility] [place] [address] 08/18/2025 2:00 PM EDT Office Visit [facility] [address] [place] [phone] Mendez Ortiz DO [address] [place] [address] documented as of this encounter Visit Diagnoses Not on filedocumented in this encounter Care Teams Basic Acoustic Analyst Relationship Specialty Start Date End Date Shawna Dudley DO [address] [facility] [facility] [address] PCP - General Family Medicine 04/14/22 Key Andrea NP [address] [place] [address] Referring Physician Family Medicine 08/13/23 Sasha Santos DO [address] [place] [address] Referring Physician Neurology 05/10/24 Mendez Ortiz DO [address] [place] [address] Otolaryngology 08/19/24 documented as of this encounter
--- OUTSIDE RECORDS SUMMARY | 2024-09-15 06:48 | XMS_ITS | Encounter Summary ---
Author Organization [facility] Address [address] [place] [address] Care Team Providers Care Vat Tender Name Role Phone Zully Key AIR BOX TESTER Unavailable Shawna Dudley DO Primary Care Provider [phone] Sasha Santos DO Unavailable [phone] Mendez Ortiz DO Unavailable Encounter Details Date Type Department Care Team (Late Contact Info) Description 06/02/2023 Orders Only [facility] [address] [facility] [place] [address] Becky Silvestre LPN [address] [facility] [address] [place] [address] Social History Tobacco Use Types [...] Department Care Team (Late Contact Info) Description 12/01/2024 11:00 AM EDT Office Visit [facility] [address] [place] [address] Cleo Zambrano MD [address] [place] [address] 05/31/2025 1:00 PM EDT Office Visit [facility] [address] [facility] [place] [phone] Roel Garber, DO [address] [facility] [address] [facility] [address] [place], [place] [address] 08/18/2025 2:00 PM EDT Office Visit [facility] [address] [place] [phone] Mendez Ortiz DO [address] [place] [address] documented as of this encounter Procedures Procedure Name Priority Date/Time Associated Diagnosis Comments PAP SMEAR Routine 05/25/2023 12:00 AM EDT documented in this encounter Results * Pap Smear (05/25/2023 12:00 AM EDT) Swab Cervical swab / Unknown Roel Garber DO LAB CYTOLOGY ORDERABLES Final Re sult EXTERNAL LAB documented in this encounter Visit Diagnoses Not on filedocumented in this encounter Care Teams Vat Tender Relationship Specialty Start Date End Date Shawna Dudley DO [address] [place] [address] PCP - General Family Medicine 04/14/22 Key Andrea, JO ANN [address] [place] [address] Referring Physician Family Medicine 08/13/23 Sasha Santos DO [address] [place] [address] Referring Physician Neurology 05/10/24 Mendez Ortiz DO [address] [place] [address] Otolaryngology 08/19/24 documented as of this encounter
--- OUTSIDE RECORDS SUMMARY | 2024-09-15 06:48 | XMS_ITS | Encounter Summary ---
Author Organization [facility] Address [address], [address] [place] [address] Care Team Providers Care Auto Salvage Worker Name Role Phone Loreto Mcneal APRN - JO ANN Primary Care Prov ider Encounter Details Date Type Department Care Team (Late Contact Info) Description 01/12/2024 Orders Only [facility] UROLOGY [address] [place] [phone] Provider, MD Ana Social History Tobacco [...] Description 11/10/2024 11:30 AM EDT Office Visit [facility] [address] [place] [address] Karen Cotter, YARDAGE CONTROL OPERATOR - BEHAVIOR INTERVENTIONIST [address] [facility] [address] [place] [address] 1 year KUB documented as of this encounter Procedures Procedure Name Priority Date/Time Associated Diagnosis Comments CT ABDOMEN PELVIS WO CONTRAST Routine 01/08/2024 10:[address] ABDOMEN PELVIS W CONTRAST Routine 10/24/2023 10:11 AM EDT documented in this encounter Results * CT ABDOMEN PELVIS WO CONTRAST (01/08/2024 10:08 AM EST) Anatomical Region Laterality Modality Abdomen, Pelvis, Hip Computed To mography Historical Provider MD DOSS CT ORDERABLES Final R esult * CT abdomen pelvis w contrast (10/24/2023 10:11 AM EDT) Anatomical Region Laterality Modality Computed Tomogra phy Historical Provider MD DOSS CT ORDERABLES Final R esult documented in this encounter Visit Diagnoses Not on filedocumented in this encounter Care Teams Auto Salvage Worker Relationship Specialty Start Date End Date Loreto Mcneal APRN - GARMENT EXAMINER [address] [place] [address] PCP - General 11/11/23 documented as of this encounter
--- OUTSIDE RECORDS SUMMARY | 2024-09-15 06:48 | XMS_ITS | Encounter Summary ---
Author Organization [facility] [employer] s tem Address [id number] [address] [place] [address] Care Team Providers Care Argon Tester Name Role Phone Services, [facility] Primary Care Provider Encounter Details Date Type Department Care Team (Late st Contact Info) Description 05/10/2020 Telephone [facility] Family Medicine [address] [place] [address] Austin Yin CNA Social History Tobacco Use [...] on file documented as of this encounter Results * [...] Noted Time PHQ-9 Depression Total Score: 0 03/03/20 21 3:00 PM EST A Body Mass Index follow-up plan has been documented for the patient 02/10/2020 2:00 PM EST documented as of this encounter Care Teams Argon Tester Relationship Specialty Start Date End Date Services, [facility] [address] [place], [place] PCP - General Family Medicine 10/05/23 documented as of this encounter
--- OUTSIDE RECORDS SUMMARY | 2024-09-15 06:48 | XMS_ITS | Encounter Summary ---
Author [facility] Address [id number] [address] [place] [address] Care Team Providers Care Charge Nurse Name Role Phone Services, [facility] Primary Care Provider Encounter Details Date Type Department Care Team (Late st Contact Info) Description 06/30/[address] [facility] Family Medicine [address] [place] [phone] Amy Cerna LPN Social History Tobacco Use [...] documented as of this encounter Care Teams Charge Nurse Relationship Specialty Start Date End Date Services, [facility] [address] [place], [place] PCP - General Family Medicine 10/05/23 documented as of this encounter
--- OUTSIDE RECORDS SUMMARY | 2024-09-15 06:48 | XMS_ITS | Encounter Summary ---
Author Organization [facility] [employer] Sys tem Address [facility]-[id number] [address] [place] [address] Care Team Providers Care Pattern Grader Cutter Name Role Phone Services, [facility] Primary Care Provider Reason for Visit * Reason Comments Med Refill Encounter Details Date Type Department Care Team (Late st Contact Info) Description 06/19/2020 Refill [facility] [address] [place] [phone] Zelalem Pathak MD [address]. Provider retired 05/31/24 [place], [place] [phone] Social History Tobacco Use Types Packs/Day Years [...] documented as of this encounter Care Teams Pattern Grader Cutter Relationship Specialty Start Date End Date [facility], [facility] [address] [place], [place] PCP - General Family Medicine 10/05/23 documented as of this encounter
--- OUTSIDE RECORDS SUMMARY | 2024-09-15 06:48 | XMS_ITS | Encounter Summary ---
Author Organization [facility] [employer] Sys tem Address [facility] [place]-[id number] [address] [place] [address] Care Team Providers Care Belt Changer Name Role Phone Services, [facility] Primary Care Provider Encounter Details Date Type Department Care Team (Late st Contact Info) Description 05/02/2020 Telephone [facility] Family Medicine [address] [place] [address] Austin Yin CNA Social History Tobacco Use [...] will replace metformin rx rx sent [facility] Please call [facility] and d/c the metformin rx * Telephone Encounter - Austin Yin CMA - 05/02/2020 4:42 PM EST Spoke with patient regarding the actos prescription. Patient has already picked up the metformin but I informed her not to take this medication and to take the actos instead. Patient verbalized understanding. Called [facility] in [place] and left message for them [...] documented as of this encounter Care Teams Belt Changer Relationship Specialty Start Date End Date [facility], [facility] [address] [place], [place] PCP - General Family Medicine 10/05/23 documented as of this encounter
--- OUTSIDE RECORDS SUMMARY | 2024-09-15 06:48 | XMS_ITS | Encounter Summary ---
Author Organization [facility] Sys tem Address [facility]-[id number] [address] [place] [address] Care Team Providers Care Painter Name Role Phone Services, [facility] Primary Care Provider Encounter Details Date Type Department Care Team (Late st Contact Info) Description 06/02/2023 Orders Only [facility] [address] [place] [phone] Deepika Cox MD [address] [facility] [address] [place] [address] Social History Tobacco Use Types [...] documented as of this encounter Care Teams Painter Relationship Specialty Start Date End Date Services, [facility] [address] [facility] [place], [place] PCP - General Family Medicine 10/05/23 documented as of this encounter
--- OUTSIDE RECORDS SUMMARY | 2024-09-15 06:48 | XMS_ITS | Encounter Summary ---
Author Organization [facility] Address [facility][id number] [address] [place] [address] Care Team Providers Care Geology Technician Name Role Phone Services, [facility] Primary Care Provider Reason for Visit * Reason Onset Date Comments Med Refill 03/08/2020 Encounter Details Date Type Department Care Team (Late st Contact Info) Description 03/08/2020 Refill [facility] [address] [place] [address] Amy Cerna LPN Social History Tobacco Use [...] documented as of this encounter Care Teams Geology Technician Relationship Specialty Start Date End Date Services, [facility] [address] [place], [place] PCP - General Family Medicine 10/05/23 documented as of this encounter
--- OUTSIDE RECORDS SUMMARY | 2024-09-15 06:48 | XMS_ITS | Patient Health Record ---
Author Organization [facility] Address [address] [place] [address] Care Team Providers Care Kettle Girl Name Role Phone Rory Driver NP Primary Care Provider Unavailab Luther Cuellarorva Unavailable [phone] Joy Yung Unavailable [phone] KedarVeena Unavailable [phone] Allergies Allergen (clinical drug ingredient) Drug/Non Drug Allergy documented on EMR Reaction Allergy Type Onset Date Status citalopram CeleXA Unknown Drug Allergy Active Keflex Unknown Drug Allergy Active metformin Metformin Unknown Drug Allergy Active Results Component Value Reference Range Notes CBC AUTO DIFF (Not yet revie wed by provider) Interpretation: Performing Lab: Notes/Report: [facility] , White Blood Count 8.4 4.0-11.0 10 [...] Performing Lab: see note ML - [facility] LB FERRITIN (Not yet reviewed b y provider) Interpretation: Performing Lab: Notes/Report: [facility] , Ferritin 469.0 8.0-252.0 ng/mL Performing Lab: see note ML - [facility] LB FREE T4 (Not yet reviewed by provider) Interpretation: Performing Lab: Notes/Report: [facility] , Free T4 0.81 0.76-1.46 ng/dL Performing Lab: see note ML - [facility] LB VITAMIN D 25 [place] (Not yet rev iewed by provider) Interpretation: Performing Lab: Notes/Report: [facility] , Vitamin D 38.6 <20 ng/mL Vit D deficient 20-<30 ng/mL Vit D insufficient 30-100 ng/mL Vit D sufficient >100 ng/mL Potential Toxicity Performing Lab: see note ML - [facility] LB Vitamin B12 (Not yet reviewe d by provider) Interpretation: Performing Lab: Notes/Report: [facility] , Vitamin B12 370.0 193.0-986.0 pg/mL Performing Lab: see note ML - [facility] LB Vitamin B12 (Not yet reviewe d by provider) Interpretation: Performing Lab: Notes/Report: [facility] , Vitamin B12 025 420-0738 pg/mL Performed at: [facility] [address] [id number] Agent Broker: Harry Rodriguez PhD, Phone: [phone] Performing Lab: see note - [facility] LB IRON AND TIBC (Not yet revie wed by provider) Interpretation: Performing Lab: Notes/Report: [facility] , Iron 44.0 50.0-170.0 ug/dL Total Iron Binding Capacity 260.0 250.0-450.0 ug/dL Percent Iron Saturation 16.9 Performing Lab: see note ML - [facility] LB VITAMIN D 25 [place] (Not yet rev iewed by provider) Interpretation: Performing Lab: Notes/Report: [facility] , Vitamin D 44.7 <20 ng/mL Vit D deficient 20-<30 ng/mL Vit D insufficient 30-100 ng/mL Vit D sufficient >100 ng/mL Potential Toxicity Performing Lab: see note ML - [facility] LB FERRITIN (Not yet reviewed b y provider) Interpretation: Performing Lab: Notes/Report: [facility] , Ferritin 505.0 8.0-252.0 ng/mL Performing Lab: see note ML - [facility] LB CBC AUTO DIFF (Not yet revie wed by provider) Interpretation: Performing Lab: Notes/Report: [facility] , White Blood Count 8.7 4.0-11.0 10 [...] 10 3/uL Performing Lab: see note - [facility] LB Vitamin B12 (Not yet reviewe d by provider) Interpretation: Performing Lab: Notes/Report: [facility] , Vitamin B12 123 073-2506 pg/mL Performed at: - [facility] [id number] Agent Broker: Harry Rodriguez PhD, Phone: [phone] Performing Lab: see note - [facility] LB TSH W/ REFLEX FT4 (Not yet r eviewed by provider) Interpretation: Performing Lab: Notes/Report: [facility] , TSH W/ REFLEX FT4 1.272 0.358-3.740 uIU/mL Performing Lab: see note - [facility] VITAMIN D 25 [place] (Not yet rev iewed by provider) Interpretation: Performing Lab: Notes/Report: [facility] , Vitamin D 40.9 <20 ng/mL Vit D deficient 20-<30 ng/mL Vit D insufficient 30-100 ng/mL Vit D sufficient >100 ng/mL Potential Toxicity Performing Lab: see note - [facility] PROF CHEM 8 (BAS METB) (Not yet reviewed by provider) Interpretation: Performing Lab: Notes/Report: [facility] , Sodium 141 136-145 mmol/L Potassium 3.9 3.5-5.1 mmol/L Chloride 103 98-107 mmol/L Carbon Dioxide 27.1 21.0-32.0 mmol/L Anion Gap 14.8 Glucose 94 74-106 mg/dL Blood Urea Nitrogen 25.0 7.0-18.0 mg/dL Creatinine 0.83 0.55-1.02 mg/dL Estimated GFR ( Regina >60 >=60 mL/min/1.73m 2 Estimated GFR (Non- Susanne >60 >=60 mL/min/1.73m 2 BUN Creatinine Ratio 30.1 Calcium 8.9 8.5-10.1 mg/dL Performing Lab: see note - [facility] LB IRON AND TIBC (Not yet revie wed by provider) Interpretation: Performing Lab: Notes/Report: [facility] , Iron 86.0 50.0-170.0 ug/dL Total Iron Binding Capacity 346.0 250.0-450.0 ug/dL Percent Iron Saturation 24.9 Performing Lab: see note - [facility] LB FERRITIN (Not yet reviewed b y provider) Interpretation: Performing Lab: Notes/Report: [facility] , Ferritin 622.0 8.0-252.0 ng/mL Performing Lab: see note - [facility] LB CBC AUTO DIFF (Not yet revie wed by provider) Interpretation: Performing Lab: Notes/Report: [facility] , White Blood Count 10.1 4.0-11.0 10 [...] Performing Lab: see note ML - [facility] LB VITAMIN D 25 [place] (Not yet rev iewed by provider) Interpretation: Performing Lab: Notes/Report: [facility] , Vitamin D 38.6 <20 ng/mL Vit D deficient 20-<30 ng/mL Vit D insufficient 30-100 ng/mL Vit D sufficient >100 ng/mL Potential Toxicity Performing Lab: see note ML - [facility] LB IRON AND TIBC (Not yet revie wed by provider) Interpretation: Performing Lab: Notes/Report: [facility] , Iron 48.0 50.0-170.0 ug/dL Total Iron Binding Capacity 348.0 250.0-450.0 ug/dL Percent Iron Saturation 13.8 Performing Lab: see note ML - [facility] LB FERRITIN (Not yet reviewed b y provider) Interpretation: Performing Lab: Notes/Report: [facility] , Ferritin 197.0 8.0-252.0 ng/mL Performing Lab: see note ML - [facility] LB CBC AUTO DIFF (Not yet revie wed by provider) Interpretation: Performing Lab: Notes/Report: [facility] , White Blood Count 9.0 4.0-11.0 10 [...] Performing Lab: see note ML - [facility] LB FERRITIN (Not yet reviewed b y provider) Interpretation: Performing Lab:[facility]), [facility] [address], [place]. [address] PH:[phone] Notes/Report: FERRITIN 195 11-307 ng/mL PERFORMED AT [address] [place] [address] IRON PROFILE ([facility]) (No t yet reviewed by provider) Interpretation: Performing Lab:[facility]), [address] [place] [address] AVE[address] SUITE [facility], [place]. [address] PH:[phone] Notes/Report: IRON 53 50-170 ug/dL IRON BINDING 374 250-425 ug/dL IRON SATURATION 14 15-50 % SATURATION PERFOR MED [address] [place] [address] CBC AND AUTO DIFF * (Not yet reviewed by provider) Interpretation: Performing Lab:[facility]), [address] [place] [address] AVE[address] SUITE [facility], [place]. [address] PH:[phone] Notes/Report: WBC COUNT 8.4 4.0-11.0 X10E9/L RBC [...] BASOPHIL 0.0 0.0-0.2 X10E9/L PERFORM ED AT [address], [place] [address] BMP w/GFR (Not yet reviewed by provider) Interpretation: Performing Lab:[facility] ([facility]), [address] [place] [address], [address], [place]. [address] PH:[phone] Notes/Report: SODIUM 138 134-146 mmol/L POTASSIUM 4.2 3.5-5.0 mmol/L CHLORIDE 106 98-109 mmol/L CARBON DIOXIDE 22 22-32 mmol/L ANION GAP 10 5-15 mmol/L BLOOD UREA NITROGEN 18 5-23 mg/dL CREATININE 0.70 0.40-1.00 mg/dL METHOD TRACE ABLE TO IDMS STANDARD GLUCOSE 89 65-99 mg/dL CALCIUM 8.9 8.5-10.5 mg/dL eGFR (CKD-EPI) NON-RACE DEPENDENT >90 >59 ml/min/1.73sq.m Reported eGFR is based on the CKD-EPI 2020 equation that does not use a race coefficient. PERFORMED AT [address], [place] [address] TSH (Not yet reviewed by pro vider) Interpretation: Performing Lab: Notes/Report: [facility] , Thyroid Stimulating Hormone 1.075 0.358-3.740 uIU/mL Performing Lab: see note ML - [facility] LB IRON AND TIBC (Not yet revie wed by provider) Interpretation: Performing Lab: Notes/Report: [facility] , Iron 65.0 50.0-170.0 ug/dL Total Iron Binding Capacity 352.0 250.0-450.0 ug/dL Percent Iron Saturation 18.5 Performing Lab: see note ML - [facility] LB Vitamin B12 (Not yet reviewe d by provider) Interpretation: Performing Lab: Notes/Report: [facility] , Vitamin B12 850 991-3526 pg/mL Performed at: - [facility] [address] [id number] Agent Broker: Harry Rodriguez PhD, Phone: [phone] Performing Lab: see note - [facility] LB PROF 14(COMP METB) (Not yet reviewed by provider) Interpretation: Performing Lab: Notes/Report: [facility] , Sodium 139 136-145 mmol/L Potassium 3.7 [...] Globulin Ratio 1.0 Performing Lab: see note ML - [facility] LB XR ankle LT min 3V (Not yet reviewed by provider) Interpretation: Performing Lab: Notes/Report: Source Facility: [facility] [place] [address] [place] [address] XRay Report Signed Patient: PEE WHITEHEAD MR#: [id number] : 1980 Acct:[id number] Age/Sex: 43 / F ADM Date: 04/06/24 Loc: RAD Attending Dr: Joy Yung D.P.M. Ordering Physician: Joy Yung D.P.M. Date of Service: 04/06/24 Procedure(s): XR ankle LT min 3V Accession Number(s): [id number] cc: Joy Yung D.P.M.; Loreto Mcneal MED SPEC The [address] [address] Patient Name: PEE WHITEHEAD MRN: [id number] date: 1980 Sex: F Assigned Patient Location: [facility] Current Patient Location: ED.MAIN Accession/Order Number: [id number] Exam Date: 04/06/2024 11:15 Report Date: 04/08/2024 [...] Signed By: 04/08/24 1131 DD/ 1128 TD/TT: Java Developer: [place] [address] XRay Report Signed Patient: PEE WHITEHEAD MR#: [id number] : 1980 Acct:[id number] Age/Sex: 43 / F ADM Date: 04/06/24 Loc: RAD Attending Dr: Joy Yung D.P.M. Ordering Physician: Joy Yung D.P.M. Date of Service: 04/06/24 Procedure(s): XR ank le LT min 3V Accession Number(s): [id number] cc: Joy Yung D.P.M.; Loreto Mcneal MED SPEC The [address] [address] Patient Name: PEE WHITEHEAD MRN: [id number] date: 1980 Sex: F Assigned Patient Location: [facility] Current Patient Location: ED.MAIN Accession/Order Numb er: [id number] Exam Date: 04/06/2024 11:15 Report Date: 04/08/2024 [...] Signed By: 04/08/24 1131 DD/ 1128 TD/TT: Java Developer: XR foot LT min 3V (Not yet r eviewed by provider) Interpretation: Performing Lab: Notes/Report: Source Facility: [place] [address] XRay Report Signed Patient: PEE WHITEHEAD MR#: [id number] : 1980 Acct:[id number] Age/Sex: 43 / F ADM Date: 04/06/24 Loc: RAD Attending Dr: Joy Yung D.P.M. Ordering Physician: Joy Yung D.P.M. Date of Service: 04/06/24 Procedure(s): XR foot LT min 3V Accession Number(s): [id number] cc: Joy Yung D.P.M.; Loreto Mcneal NP The [place] [address] Patient Name: PEE WHITEHEAD MRN: [id number] date: 1980 Sex: F Assigned Patient Location: RAD Current Patient Location: ED.MAIN Accession/Order Number: [id number] Exam Date: 04/06/2024 11:15 Report Date: 04/08/2024 [...] Signed By: 04/08/24 1131 DD/ 1128 TD/TT: Java Developer: [place] [address] XRay Report Signed Patient: PEE WHITEHEAD MR#: [id number] : 1980 Acct:[id number] Age/Sex: 43 / F ADM Date: 04/06/24 Loc: RAD Attending Dr: Joy Yung D.P.M. Ordering Physician: Joy Yung D.P.M. Date of Service: 04/06/24 Procedure(s): XR miryam t LT min 3V Accession Number(s): [id number] cc: Joy Yung D.P.M.; Loreto Mcneal NP [place] [id number] Patient Name: PEE WHITEHEAD MRN: [id number] date: 1980 Sex: F Assigned Patient Location: RAD Current Patient Location: ED.MAIN Accession/Order Numb er: [id number] Exam Date: 04/06/2024 11:15 Report Date: 04/08/2024 [...] Signed By: 04/08/24 1131 DD/ 1128 TD/TT: Java Developer: Reason For Referral Reason see attached rx Diagnosis 1 Ingrowing nail (L60. 0) Referral Organization [facility]) Referring Provider First Name Veena Referring Provider Last Name Kedar Referring Provider Speciality Podiatry Referred Provider Specialty Pharmacist General Notes Austin Paz 06/2023 11:02:08 AM >Patient wants to get oral medication. Referred to her PCP. Referral Priority Routine Reason Referral to [employer] 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 [address] 06/14/2024 Carmen Fisher [facility] (POD[facility]) [address] [place], [place] [address] [address] 11/26/2023 Veena Thacker Ingrowing nail L60.0 and Post-traumatic osteoarthritis, left ankle and foot M19.172 [facility]) [address] [place], [place] [address] [address] 04/06/2024 Joy Yung Post-traumatic osteoarthritis, left ankle and foot M19.172 ; Ingrowing nail L60.0 ; Tinea unguium B35.1 and Pain in left ankle and joints of left foot M25.572 [facility] [address] [place] [address] 03/29/2024 [facility] [address] [place] [address] 02/22/2024 [facility] [address] [place] [address], [place] [address] 12/22/2023 Carmen Fisher [facility] Oncology [address] [place] [address] 02/11/2024 Carmen Fisher Assessments Encounter Date Diagnosis (ICD Code) Assessment [...] patient satisfaction. [facility] She may continue to manage [...] Fisher , 09/20/2024 11:30:00 AM, [address] [place], [address], Insurance Providers Payer Name Payer Address Payer Phone Subscriber Number Group Number Insured Name Patient Relationship to Insured Coverage Start Date Coverage End Date [employer] [place] [employer] [address] [place] [phone] [id number] Pee Wilson Self - patient is the [...] of both ankles Surgical History Surgery Date(Month/Year) c sections ankle surgery x2 tonsilectomy/adneoids cholecystectomy
--- OUTSIDE RECORDS SUMMARY | 2024-09-15 06:48 | XMS_ITS | Encounter Summary ---
Author Organization [facility] tem Address [facility]-[id number] [address] 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 She cannot deal with Mohsen [...] documented as of this encounter Care Teams Older Worker Specialist Relationship Specialty Start Date End Date Services, [facility] [address] [place] PCP - General Family Medicine 10/05/23 documented as of this encounter
--- OUTSIDE RECORDS SUMMARY | 2024-09-15 06:48 | XMS_ITS | Encounter Summary ---
Author Organization [facility] Address [address] [place] [address] Care Team Providers Care Weigher Operator Name Role Phone Key Andrea APPLICATION PROJECT LEADER Unavailable Shawna Dudley DO Primary Care Provider [phone] Sasha Santos DO Unavailable [phone] Mendez Ortiz DO Unavailable [phone] Reason for Visit * Reason Comments Med Refill Encounter Details Date Type Department Care Team (Late st Contact Info) Description 05/19/2024 Refill [facility] [address] [place] [address] Archana Naylor, WALL MAN-FAST FOOD ATTENDANT [address] [facility] [address] [place] [address] Rash and other nonspecific skin [...] [facility] [address] [place] [address] Cleo Zambrano MD [address] [place] [address] 05/31/2025 1:00 PM EDT Office Visit [facility] [address] [facility] [place] [address] Roel Garber DO [address] [place] [address] 08/18/2025 2:00 PM EDT Office Visit [facility] [address] [place] [place] [address] Mendez Ortiz DO [address] [place] [address] documented as of this encounter Visit Diagnoses Diagnosis Rash and other nonspecific skin eruption documented in this encounter Care Teams Weigher Operator Relationship Specialty Start Date End Date Shawna Dudley DO [address] [place] [address] PCP - General Family Medicine 04/14/22 Key Andrea, JO ANN [address] [place] [address] Referring Physician Family Medicine 08/13/23 Sasha Santos DO [address] [place] [address] Referring Physician Neurology 05/10/24 Mendez Ortiz DO [address] [place] [address] Otolaryngology 08/19/24 documented as of this encounter
--- OUTSIDE RECORDS SUMMARY | 2024-09-15 06:48 | XMS_ITS | Encounter Summary ---
Author Organization [employer] [facility] tem Address [facility]-[id number] [address] [place] [address] Care Team Providers Care Relationship Associate Name Role Phone Services, [facility] Primary Care Provider Reason for Referral * Consultation (Routine) - Closed Specialty Diagnoses / Procedures Referred By Krala cuadra Referred To Contact Endocrinology, Diabetes & Metabolism Diagnoses 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, without long-term current use of insulin ([facility]) Zelalem Pathak MD Phone: tel: fax: Cleo Zambrano MD [address] [facility], [address] [address] Phone: tel: fax: Referral ID Status Reason Start Date Expiration Date V isits Requested Visits Authorized [id number] Closed Specialty Services Required 06/14/2020 06/14/2021 1 1 Encounter Details Date Type Department Care Team (Late st Contact Info) Description 06/14/2020 Orders Only [facility] [address] [place] [phone] Zelalem Pathak MD [address]. Provider retired 05/31/24 [place], [place] [phone] 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, without long-term current use of insulin ([facility]) (Primary Dx) Social History Tobacco Use Types [...] as of this encounter Plan of Treatment Scheduled Referrals Name Type Priority Associated Diagnoses Order Schedule Ambulatory referral to Endocrinology Outpatient Referral Routine 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, without long-term current use of insulin ([facility]) 1 Occurrences starting 06/14/2020 until 12/14/2020 documented as of this encounter Visit Diagnoses Diagnosis 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, without long-term current use of insulin ([facility])- Primary documented in this encounter Additional Health Concerns Assessment Noted Time PHQ-9 Depression Total Score: 0 05/03/19 21 3:00 PM EST A Body Mass Index follow-up plan has been documented for the patient 02/10/2020 2:00 PM EST documented as of this encounter Care Teams Relationship Associate Relationship Specialty Start Date End Date Services, [facility] [address] [place], [place] PCP - General Family Medicine 10/05/23 documented as of this encounter
--- OUTSIDE RECORDS SUMMARY | 2024-09-15 06:48 | XMS_ITS | Encounter Summary ---
Author Organization [facility] HistoryFile s tem Address [facility]-[id number] [address] [place] [address] Care Team Providers Care Supervisor Computer Operations Name Role Phone Services, [facility] Primary Care Provider Encounter Details Date Type Department Care Team (Late st Contact Info) Description 05/10/2020 Telephone [facility] Family Medicine [address] [place] [address] Kimberlyn Juarez CMA Social History Tobacco Use [...] Time PHQ-9 Depression Total Score: 0 05/03/19 3:00 PM EST A Body Mass Index follow-up plan has been documented for the patient 02/10/2020 2:00 PM EST documented as of this encounter Care Teams Supervisor Computer Operations Relationship Specialty Start Date End Date Services, [facility] [address] [place] PCP - General Family Medicine 10/05/23 documented as of this encounter
--- OUTSIDE RECORDS SUMMARY | 2024-09-15 06:49 | XMS_ITS | Clinical Summary ---
Author Organization [facility] Address [address] [place] [address] Care Team Providers Care Is Project Manager Name Role Phone Unavailable Primary Care Provider [...] mcg/actuation nasal sprayIndication s:Globus sensation Use 1 [place] in each nostril as needed. Active PYRIDOXINE [...] Vaccine ( - season) 2023 Influenza Vaccine (#1) 2024
--- OUTSIDE RECORDS SUMMARY | 2024-09-15 06:49 | XMS_ITS | Encounter Summary ---
Author Organization [facility] Address [facility]-[id number] [address] [place] [address] Care Team Providers Care Motor Electrician Name Role Phone Services, [facility] Primary Care Provider Reason for Visit * Reason Comments Med Refill Encounter Details Date Type Department Care Team (Late st Contact Info) Description 01/23/2019 Refill [facility] [address] [place] [phone] Zelalem Pathak MD [address] Provider retired 05/31/24 [place], [place] [phone] Social History Tobacco Use Types Packs/Day Years [...] documented as of this encounter Care Teams Motor Electrician Relationship Specialty Start Date End Date Services, [facility] [address] [place], [place] PCP - General Family Medicine 10/05/23 documented as of this encounter
--- OUTSIDE RECORDS SUMMARY | 2024-09-15 06:49 | XMS_ITS | Patient Health Record ---
Author Organization [facility] es Address [address] [address] Care Team Providers Care Counselor Manager Name Role Phone Chinyere Calix Primary Care Provider Katharine Valdez Unavailable [phone] Allergies Allergen (clinical drug ingredient) Drug/Non Drug Allergy documented on EMR Reaction Allergy Type Onset Date Status citalopram Celexa Unknown Drug Allergy Active Keflex Unknown Drug Allergy Active Results Component Value Reference Range Notes HCG,Urine Reviewed date:08/21/2024 11:22:54 AM Interpretation: Performing Lab:, [facility], [address] [place] [address] Notes/Report: HCG Qualitative,Urine Negative Glucose Poct Glucometers Reviewed date:08/21/2024 11:22:47 AM Interpretation: Performing Lab:, [facility], [address] [place] [address] Notes/Report: Glucose Poc Glucometers 85 Random Glucose Reference Range is dependent on time and content of last meal. Glucose of more than 200 mg/dL in a nonstressed, ambulatory subject supports the diagnosis of Diabetes Mellitus. Glucose Poct Glucometers Reviewed date:08/21/2024 11:22:42 AM Interpretation: Performing Lab:, [facility], [address] [place] [address] Notes/Report: Glucose Poc Glucometers 136 Random Glucose Reference Range is dependent on time and content of last meal. Glucose of more than 200 mg/dL in a nonstressed, ambulatory subject supports the diagnosis of Diabetes Mellitus. Reason For Referral No Information Medications Medication SIG (Take, Route, Frequency, Duration) Notes Start Date End Date Status Vyvanse 70 MG 1 capsule in the morning Orally Once a day; Duration: 30 days 06/13/2024 Active Vyvanse 70 MG 1 capsule in the morning Orally Once a day; Duration: 30 days DNF until 07/09/2024 06/13/2024 Active Vyvanse 70 MG 1 capsule in the morning Orally Once a day; Duration: 30 days DNF until 08/07/2024 06/13/2024 Active Rosuvastatin Calcium 10 MG TAKE 1 TABLET BY MOUTH EVERY DAY Oral; Duration: 30 Active traZODone HCl 50 mg TAKE 1 TO 2 TABLETS BY MOUTH AT BEDTIME; Duration: 30 Active FLUoxetine HCl 60 mg TAKE 1 TABLET BY MOUTH DAILY; Duration: 30 Active Cyclobenzaprine HCl unknown dosage Active [...] 200 MG 1 tablet Orally Once a day; Duration: 30 days Active Latuda 120 MG TAKE 1 TABLET BY MOUTH ONCE DAILY WITH FOOD Orally Once a day; Duration: 30 days dose adjusted 06/01/2023 Active Social History Tobacco Use: Social History [...] Risk Notes Problem Attention deficit hyperactivity disorder (437617069) ADHD (attention deficit hyperactivity disorder), combined type (F90.2) Active confirmed Problem Posttraumatic stress disorder (42646160) PTSD (post-traumatic stress disorder) (F43.10) Active confirmed Problem 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) Active confirmed Problem Mixed bipolar affective disorder, moderate (978449885) Bipolar 1 disorder, mixed, moderate (F31.62) Active confirmed Problem Impulse control disorder (95346936) Impulse control disorder (F63.9) Active confirmed Vital Signs Heart Rate 90 /min 12/28/2023 Temperature 98.6 degrees Fahrenheit 12/28/2023 Oximetry 97 % 12/28/2023 Height 63 in 03/28/2024 Weight 220 lbs 03/28/2024 BMI 38.97 kg/m2 03/28/2024 Encounters Encounter Location Date Provider Diagnosis [facility] [address] [place] [address] 06/13/2024 Chinyere Calix Bipolar 1 disorder, mixed, moderate F31.62 ; ADHD (attention deficit hyperactivity disorder), combined type F90.2 and PTSD (post-traumatic stress disorder) F43.10 [facility] [address] [place] [address] 12/28/2023 Chinyere Calix Bipolar 1 disorder, mixed, moderate F31.62 ; ADHD (attention deficit hyperactivity disorder), combined type F90.2 and PTSD (post-traumatic stress disorder) F43.10 [facility] [address] [address] 03/28/2024 Chinyere Calix Bipolar 1 disorder, mixed, moderate F31.62 ; ADHD (attention deficit hyperactivity disorder), combined type F90.2 and PTSD (post-traumatic stress disorder) F43.10 [facility] [address] [place] [address] 07/19/2024 Katharine Valdez [facility] [address] [place] [address] 08/16/2024 Chinyere Calix Bipolar 1 disorder, mixed, moderate F31.62 [facility] [address] [place] [address] 08/16/2024 Chinyere Calix Bipolar 1 disorder, mixed, moderate F31.62 [facility] [address] [place] [address] 01/14/2024 Chinyere [place] [address] [place] [address] 02/10/2024 [place] [address] [place] [address] 03/07/2024 [facility] [address] [place] [address] 03/30/2024 [facility] [address] [place] [address] 06/13/2024 [facility] [address] [place] [address] 06/22/2024 Chinyere [address] [place] [address] 11/28/2023 Chinyere Calix ADHD (attention deficit hyperactivity disorder), combined type F90.2 Assessments Encounter Date Diagnosis (ICD Code) Assessment Notes Treatment Notes Treatment Clinical Notes Section Notes 03/28/2024 Bipolar 1 disorder, mixed, moderate (ICD-10 [...] increasing protein as appropriate. Discussed referral to senior oracle applications developer if problem persists. . . Continue current [...] ideation, intent or plan in session. . 08/16/2024 Bipolar 1 disorder, mixed, moderate (ICD-10 - F31.62) 06/13/2024 Bipolar 1 disorder, mixed, moderate (ICD-10 [...] increasing protein as appropriate. Discussed referral to senior oracle applications developer if problem persists. . . Continue current [...] ideation, intent or plan in session. . 08/16/2024 Bipolar 1 disorder, mixed, moderate (ICD-10 - F31.62) 12/28/2023 ADHD (attention deficit hyperactivity disorder), combined [...] increasing protein as appropriate. Discussed referral to senior oracle applications developer if problem persists. . . Continue current [...] ideation, intent or plan in session. . 11/28/2023 ADHD (attention deficit hyperactivity disorder), combined type (ICD-10 - F90.2) 12/28/2023 PTSD (post-traumatic stress disorder) (ICD-10 - F43.10) 06/13/2024 ADHD (attention deficit hyperactivity disorder), combined [...] irritability, headache, or decreased appetite. . 03/28/2024 PTSD (post-traumatic stress disorder) (ICD-10 - F43.10) 06/13/2024 PTSD (post-traumatic stress disorder) (ICD-10 - F43.10) 12/28/2023 Other Body Mass Index : Care Instructions material was published Plan Of Treatment Next Appt Details Provider Name:Chinyere Churchill Calix, 09/20/2024 03:45:00 PM, [address] , [place], [address], Insurance Providers Payer Name Payer Address Payer Phone Subscriber Number Group Number Insured Name Patient Relationship to Insured Coverage Start Date Coverage End Date [employer] [place] Medicaid [address] CLAIMS DEPT FORMER[place] [address] [id number] [employer], PEE Self - patient is the insured 3 [facility] [address] [place] [address] [id number] GODFREY PERRY PEE Self - patient is the insured 3 [facility] [address]. [address] [place] [address] [id number] GODFREY PERRY, PEE Self - patient is the insured [address] [facility] BUCKEYE-ter med 22 [address] [place] [address] [id number] GODFREY PERRY, PEE Self - patient is the insured [address] [facility] MEDICAID [facility] after [employer]UCKEYE-ter med 22 [address] [place] [address] [id number] GODFREY PERRY, PEE Self - patient is the insured 1 3 Medical (General) History Medical History History ICD Code bipolar PTSD ADHD Surgical History Surgery Date(Month/Year) nasal surgery leg surgery back surgery ankle surgery Hospitalization History Reason Date(Month/Year) Rotator cuff surgery 05/15/22
--- OUTSIDE RECORDS SUMMARY | 2024-09-15 06:49 | XMS_ITS | Clinical Summary ---
Author Organization [facility] tem Address [id number] [address] [place] [address] Care Team Providers Care Care Management Associate Name Role Phone Services, [facility] Primary Care Provider Allergies Active Allergy Reactions Criticality Noted Date Comments Citalopram 09/15/2016 Cephalexin 09/15/2016 Metformin High 04/15/2022 Severe hypoglycemia Poison Devorah Extract 04/15/2022 Medications [id number] alcium &mins (THERAGRAN-M) 9 mg iron-400 mcg tablet Take 1 tablet by mouth in the morning. Active blood-glucose meter (TRUE METRIX GLUCOSE METER) [facility] use to test BLOOD SUGAR TWICE DAILY [...] in the morning. 9 Active FLUoxetine (PROzac) 60 MG tablet Take 1 tablet (60 mg total) by mouth in the morning. 0 Active B COMPLEX-VITAMIN B12 tablet TAKE 1 TABLET BY MOUTH DAILY 30 tablet 5 0 Active lancets (UNILET LANCET) 28 gauge misc Use to test BLOOD SUGAR TWICE DAILY, Diagnosis: E11.9 100 each 5 1 Active traZODone (DESYREL) 50 mg tablet as needed. 1 Active lurasidone (LATUDA) 120 mg tablet tablet Take 1 tablet (120 mg total) by mouth daily with breakfast. 1 Active pioglitazone (ACTOS) 30 mg tablet Take 1 tablet (30 mg total) by mouth daily. 30 tablet 5 1 Active blood sugar diagnostic (TRUE METRIX GLUCOSE TEST STRIP) stripIndications:T ype 2 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s ([facility]) Use to test BLOOD SUGAR TWICE DAILY 100 strip 5 1 Active fluticasone propionate (FLONASE) 50 mcg/actuation nasal spray instill 2 (TWO) sprays in EACH nostril ONCE DAILY 16 g 1 Active albuterol (PROVENTIL HFA;VENTOLIN HFA) 90 mcg/actuation inhalerIndications :Obstructive sleep apnea syndrome INHALE 2 PUFFS BY MOUTH EVERY 6 HOURS NEEDED FOR WHEEZING 18 g 1 Active empagliflozin (JARDIANCE) 25 mg tablet tablet Take 1 tablet (25 mg total) by mouth in the morning. Active rosuvastatin (CRESTOR) 20 mg tablet Take 1 tablet (20 mg total) by mouth in the morning. Active CHOLECALCIFEROL, VITAMIN D3, ORAL Take 5,000 Units by mouth in the morning. 2 Active lisdexamfetamine (VYVANSE) 70 mg capsule 2 Active ibuprofen (MOTRIN) 800 mg tablet Take 1 tablet (800 mg total) by mouth every 6 (six) hours as needed for pain. Active NON FORMULARY Neosporin cream- applies to bilateral nostrils 3 times a day Active fexofenadine (JONATHAN) 60 mg tablet Take 1 tablet (60 mg total) by mouth in the morning. Active docusate sodium (COLACE) 100 mg capsule 3 [...] total) by mouth in the morning. Active DULoxetine (CYMBALTA) 30 mg capsule Take 1 capsule (30 mg total) by mouth in the morning. 30 capsule 3 4 Active pantoprazole (PROTONIX) 20 mg EC tablet Take 1 tablet (20 mg total) by mouth in the morning. Active ferrous gluconate (FERGON) 256 mg (28 mg iron) tablet Take 246 mg by mouth in the morning. Active tirzepatide (MOUNJARO) 2.5 mg/0.5 mL pen injector Inject 2.5 mg under the skin every 7 days. Active cyclobenzaprine (FEXMID) 7.5 MG tablet Take 1 tablet (7.5 mg total) by mouth 3 (three) times a day as needed for muscle spasms. Active linaCLOtide (LINZESS) 72 mcg capsule Take 1 capsule (72 mcg total) by mouth in the morning. Active metoprolol succinate XL (TOPROL XL) 25 mg 24 hr tablet Take 1 tablet (25 mg total) by mouth in the morning. Active Active Problems Problem Noted Date Diagnosed Date Macromastia 10/08/2023 Mass of upper outer quadrant of right breast 04/2023 Symptomatic mammary hypertrophy 06/02/2023 Disorder of sacrum 01/29/2023 Intervertebral disc 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 12/02/2022 Axillary lymphadenopathy 05/10/2020 Disc displacement, lumbar 10/11/2018 Overview (10/11/2018): Added automatically from request for surgery [id number] Lumbosacral spondylosis without myelopathy 07/22 Overview (07/22/2018): Added automatically from request for surgery [id number] PTSD (post-traumatic stress disorder) 06/16/2018 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 Cervical disc displacement 09/21/2017 Postoperative abscess 09/28/2016 Acute cholecystitis 09/15/2016 Diverticulitis Encounters Date Type Department Care Team Description 09/06/2024 [facility] [address] [address] [place] [address] Dwayne Khoury MD 08/18/2024 12:30 PM EDT - 08/18/2024 1:30 PM EDT Surgery [address] [address] Chepe Ingram MD REPAIR SCAPHOLUNATE [07518 (CPT )] 08/18/2024 12:15 PM EDT Anesthesia Event [address] [address] Akira Willett MD 08/18/2024 10:32 AM EDT - 08/18/2024 3:18 PM EDT Hospital Encounter [address] [address] Chepe Ingram MD Scapholunate dissociation of left wrist (Primary Dx) Discharge Disposition: Home 08/18/2024 Travel 08/03/2024 Travel from Last 3 Months Immunizations Immunization Administration [...] 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 Not on file Not on file Last Filed Vital Signs Vital Sign Reading Time Taken Comments Blood Pressure 139/94 08/18/2024 2:55 PM EDT Pulse 104 08/18/2024 2:34 PM EDT Temperature 36 C (96.8 F) 08/18/2024 2:15 PM EDT Respiratory Rate 16 08/18/2024 2:55 PM EDT Oxygen Saturation 95% 08/18/2024 3:00 PM EDT Inhaled Oxygen Concentration - - Weight 99.8 kg (220 lb) 08/18/2024 11:02 AM EDT Height 160 cm (5' 3 ) 08/18/2024 11:02 AM EDT Body Mass Index 38.97 08/18/2024 11:02 AM EDT Plan of Treatment Health Maintenance Due Date Last Done Comments Diabetic Ophthalmology Exam 1980 Depression Screening 1992 Adult BMI Follow Up Plan 1998 Diabetic Foot Exam 01/04/2020 01/03/2019 Influenza Vaccine 10/31/2024 12/07/2023, , 12/23/2021, Additional history exists Adult BMI Screening 08/18/2025 08/18/2024 Tobacco Screening 08/18/2025 08/18/2024 Pap Smear 05/24/2026 05/25/2023, 05/19/2022 DTaP,Tdap and Td Vaccines (2 - Td or Tdap) 09/03/2031 09/02/2021, 09/02/2021 COVID-19 Vaccine Completed 12/07/2023, , 02/07/2022, Additional history exists Medical Devices Implanted Type Area Manager Distribution Center Device Identifier Shelf Expiration Date Model / Serial / Lot [place] Sut 5.5mm 2 Ft Crkscr Fbrwr Shldr 3 Pk 14.7mm Strl Ea=Bill-Only Rpl [id number] - [id number] Implanted:Qty: 1 on 05/15/2022 by Chepe Ingram MD at [facility] [place] Right: Shoulder Arthrex 05/30/2026 AR-1927 PSF-3 / / [id number] Arthreximplant System, Hand/Wrist Internal Brace Ligament Augmentation Repair Implanted:Qty: 1 on 08/18/2024 by Chepe Ingram MD at [facility] Orthopedic Implant Right: Wrist Arthrex [id number] 04/01/2029 AR-8978 -CP / / [id number] Arthrex Dx Swivelock Sl, With Forked Eyelet, 3.5 X 8.5mm Implanted:Qty: 1 on 08/18/2024 by Chepe Ingram MD at [facility] Orthopedic Implant Right: Wrist Arthrex [id number] 01/30/2028 AR-8978 P / / [id number] Arthrex Dx Swivelock Sl, With Forked Eyelet, 3.5 X 8.5mm Implanted:Qty: 1 on 08/18/2024 by Chepe Ingram MD at [facility] Orthopedic Implant Right: Wrist Arthrex [id number] 12/30/2024 AR-8978 P / / [id number] 0.062 9inch Yasmine Pin Implanted:Qty: 1 on 08/18/2024 by Cheep Ingram MD at [facility] Pin Right: Wrist Qu[employer]eler [employer] [id number] / / Explanted Type Area Manager Distribution Center Device Identifier Shelf Expiration Date Model / Serial / Lot 9 Inch 0.062 Yasmine Pin Explanted:Qty: 1 on 08/18/2024 by Chepe Ingram MD at [facility] Pin Right: Wrist Celestine Sympler Roseanne [id number] / / Procedures Procedure Name Priority Date/Time Associated Diagnosis Comments BEDSIDE GLUCOSE Routine 08/18/2024 2:22 PM EDT XR WRIST RT MIN 3 VWS Routine 08/18/2024 2:11 PM EDT ANESTHESIA INTUBATION Routine 08/18/2024 12:30 PM EDT DE TRANSECT OTHR SPINAL N,XTRADURAL 08/18/2024 12:15 PM EDT Pre-procedural laboratory examination, Extensor tenosynovitis of finger, Traumatic rupture of other ligament of right wrist initial encounter, Colles' fracture of right radius initial encounter for closed fracture Case Notes 1030 Special Needs ARTHREX INTERNAL BRACEC-ARM DE EXCIS SYNOV WRIST,EXTENS TENDON 08/18/2024 12:15 PM EDT Pre-procedural laboratory examination, Extensor tenosynovitis of finger, Traumatic rupture of other ligament of right wrist initial encounter, Colles' fracture of right radius initial encounter for closed fracture Case Notes 1030 Special Needs ARTHREX INTERNAL BRACEC-ARM DE REVISE WRIST JOINT,CARPAL INSTABIL 08/18/2024 12:15 PM EDT Pre-procedural laboratory examination, Extensor tenosynovitis of finger, Traumatic rupture of other ligament of right wrist initial encounter, Colles' fracture of right radius initial encounter for closed fracture Case Notes 1030 Special Needs ARTHREX INTERNAL BRACEC-ARM CHG SONO GUIDE NEEDLE BIOPSY Routine 08/18/2024 11:47 AM EDT DE INJECTION AA&/STRD BRACHIAL PLEXUS W/IMG GDN Routine 08/18/2024 11:47 AM EDT ANESTHESIA PERIPHERAL BLOCK Routine 08/18/2024 11:47 AM EDT BEDSIDE GLUCOSE Routine 08/18/2024 11:03 AM EDT POCT , URINE (NUCG) Routine 08/18/2024 10:47 AM EDT AMB REFERRAL TO PODIATRY Routine 01/03/2019 Pain in both feet from Last 3 Months or Most Recently Relevant to Health Maintenance Results * Bedside Glucose *Place/Obtain serum glucose if >500 per glucometer. (08/18/2024 2:22 PM EDT) Only the most recent of2 resultswithin the time period is included. Bedside Glucose (POC) 93 65 - 99 mg/dL 08/18/2024 2:[address] [facility] Blood specimen (specimen) 08/18/2024 2:22 PM EDT 08/18/2024 2:28 PM EDT Chepe Ingram MD POINT OF CARE TEST ORDERAB LES Final Result [address] [address], [place] * X-ray wrist right minimum 3 views (08/18/2024 2:11 PM EDT) Anatomical Region Laterality Modality MSK, Upper Extremities, Wrist Right Ra jason Fluoroscopy 08/18/2024 3:58 PM EDT Narrative 08/18/2024 3:58 PM EDT XR WRIST RT MIN 3 VWS INDICATION: Right wrist pain repair. FINDINGS: Intraoperative fluoroscopy provided during orthopedic procedure right wrist. No radiologist present during the examination. Reference Air Kerma: 7.4 mGy IMPRESSION: Intraoperative fluoroscopy provided as above. See operative report for additional details. Finalized by Rojas Rodríguez MD on 08/18/2024 3:58 PM Procedure Note Rojas Rodríguez MD - 08/18/2024 XR WRIST RT MIN 3 VWS INDICATION: Right wrist pain repair. FINDINGS: Intraoperative fluoroscopy provided during orthopedic procedure rightwrist. No radiologist present during the examination. Reference Air Kerma: 7.4 mGy IMPRESSION: Intraoperative fluoroscopy provided as above. See operative report foradditional details. Finalized by Rojas Rodríguez MD on 08/18/2024 3:58 PM us Chepe Ingram MD IMG DIAGNOSTIC IMAGING ORD ERABLES Final Result * DE AN ELECTIVE SUPRAGLOTTIC AIRWAY (08/18/2024 12:30 PM EDT) Murtaza Steinberg APRN-CRNA - 08/18/2024 12:30 PM EDT Murtaza Pablo BRIDGET Harrison 08/18/2024 12:41 PM Airway Patient location during procedure: OR Urgency: Elective Date/Time: 08/18/2024 12:30 PM Airway not difficult IV In Situ: Peripheral General Information and Staff Service Provider: BRIDGET Kirk Placed by: BRIDGET Kirk Patient Identified, IV Checked, Risks and Benefits Discussed, Surgical Consent, Monitors and Equipment Checked, Pre-op Evaluation and Timeout Performed Fire Risk Assessment Score: 0 Consent for Emergent Airway (if performed for an anesthetic, see related documentation for consents) Risks and benefits: risks, benefits and alternatives were discussed Indications and Patient Condition Sedation level: Deep Preoxygenated: yesPatient position: Supine and Sniffing MILS maintained throughout Mask difficulty assessment: Not Attempted Indications for airway management: Anesthesia Complications: No Complicating Factors: No Final Airway Details Final airway type: Supraglottic Airway Successful Airway: I GelOral SGA size: 3 No Bite Block Placed Post Intubation Trauma? No Placement verified by: chest auscultation, capnography and symmetrical chest wall movement Number of attempts at approach: 1 Airway Brand: I Gel us Akira Willett MD ANESTHESIA ORDERABLES Final R esult * PM PERIPHERAL BLOCK, DE INJECTION AA&/STRD BRACHIAL PLEXUS W/IMG GDN, CHG SONO GUIDE NEEDLE BIOPSY (08/18/2024 11:47 AM EDT) Akira An MD - 08/18/2024 11:47 AM EDT Akira Willett MD 08/18/2024 11:49 AM Peripheral Block Patient Location: Pre-op Start Time: 08/18/2024 11:42 AM End Time: 08/18/2024 11:46 AM Reason for Block: Surgical/Post-op Pain Management and At Surgeon's Request IV In situ: Peripheral General Information and Staff: Service Provider: Akira Willett MD Surgeon: Chepe Ingram MD Placed by: Akira Willett MD Checklist: Patient Identified, IV Checked, Site Marked, Risks and Benefits Discussed, Surgical Consent, Monitors and Equipment Checked, Pre-op Evaluation and Timeout Performed Fire Risk Assessment Score: 2 Positioning and Technique: Patient Position: Sitting Prep: Chlorhexidine and Patient Draped Monitoring: Heart Rate, Supply Chain Engineer, Continuous Pulse Ox and Blood Pressure Oxygen Source: Nasal Cannula Location: Supraclavicular Brachial Plexus Laterality: Right Injection Technique: Single Shot Number of Attempts: 1 Placement Technique: Ultrasound Guided Anesthesia Block Medication Given: lidocaine (XYLOCAINE) injection 2% - infiltration, Right Brachial 2 mL - 08/18/2024 11:43:00 AM ropivacaine (NAROPIN) injection 0.5 % - infiltration, Right Brachial 20 mL - 08/18/2024 11:44:00 AM Anxiolytics Given: Yes Needle: Needle Type: Short-Bevel Needle Gauge: 22 G Needle Length: 5 cm Needle Localization: Ultrasound Guidance Assessment: Injection Assessment: Negative Aspiration for Heme, No Paresthesia on Injection, Local Visualized Surrounding Nerve on Ultrasound, No S/S intravascular or Intraneural Injection and Incremental Injection Paresthesia Pain: None Heart Rate Change: No Slow Fractionated Injection: Yes Comments: us Akira Willett MD ANESTHESIA ORDERABLES Final R esult * POCT , urine (08/18/2024 10:47 AM EDT) POC Urine Negative Negative, Indeterminate 08/18/2024 12:[address] [facility] Urine 08/18/2024 10:4 7 AM EDT 08/18/2024 12:19 PM EDT us Chepe Ingram MD POINT OF CARE TEST ORDERAB LES Final Result Performing Organization Address City/[facility]/ZIP Co de Phone Number [address] [address], * Ambulatory referral to Podiatry (01/03/2019) 01/03/2019 us Zelalem Pathak MD OUTPATIENT REFERRAL ORDERABL ES Final Result MANUALLY TRANSCRIBED RESULTS from Last 3 Months or Most Recently Relevant to Health Maintenance Insurance [place] Advance Directives * Full Code (Latest Code Status on File) Date Activated Date Inactivated Comments 09/16/2016 3:19 PM 09/17/2016 8:38 PM Care Teams Care Management Associate Relationship Specialty Start Date End Date Services, [facility] [address] [place] PCP - General Family Medicine 10/05/23
--- OUTSIDE RECORDS SUMMARY | 2024-09-15 06:49 | XMS_ITS | Encounter Summary ---
Author Organization [facility] Address [id number] [address] 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
--- OUTSIDE RECORDS SUMMARY | 2024-09-15 06:49 | XMS_ITS | Clinical Summary ---
Author Organization [facility] Address [address] [place] [address] Care Team Providers Care Director Employment Name Role Phone Fredis Loreto Primary Care [...] Unknown palpitations Other Reaction(s): Palpitations, anaphylaxis Medications Mounjaro 2.5 mg/0.5 mL pen injector INJECT 2.5 MG SUBCUTANEOUSLY (UNDER THE SKIN) EVERY 7 DAYS 06/02/19 25 Active ascorbic acid (Vitamin C) 500 mg tablet Take 500 mg by mouth twice a day. 02/25/20 23 Active Align, B.infantis, 4 mg capsule Take 1 capsule by mouth in the morning. 02/17/20 23 Active cholecalciferol, vitamin D3, 50 mcg (2,000 unit) capsule Take 2,000 Units by mouth in the morning. 04/09/19 22 Active ciclopirox (Loprox) 0.77 % cream APPLY TO THE AFFECTED AREA(S) TWICE DAILY 04/21/19 25 Active cyclobenzaprine (Flexeril) 10 mg tablet Take 10 mg by mouth if needed in the morning, at noon, and at bedtime. 11/16/19 24 Active diclofenac (Voltaren) 75 mg EC tablet Take 75 mg by mouth if needed in the morning and at bedtime. 11/16/19 24 Active docusate sodium (Colace) 100 mg capsule Take 300 mg by mouth 3 times a day. Active DULoxetine (Cymbalta) [address] capsule Take 1 capsule by mouth in the morning. Active empagliflozin (Jardiance) 25 mg Take 25 mg by mouth in the morning. 04/07/19 25 Active etonogestrel-elut ing contraceptive (Nexplanon) 68 mg contraceptive implant Inject 68 mg under the skin. Active FeroSuL 325 mg (65 mg iron) tablet Take 1 tablet by mouth in the morning. Active FLUoxetine (PROzac) 60 mg tablet Take 60 mg by mouth in the morning. Active fluticasone (Flonase) 50 mcg/actuation nasal spray Administer 1 spray into each nostril if needed. 07/17/19 21 Active gabapentin (Neurontin) 300 mg capsule 1 capsule every 8 (eight) hours. 03/31/19 25 Active lamoTRIgine (LaMICtal) 200 mg tablet Take [...] mg tablet Take 10 mg by mouth. Active traMADol (Ultram) 50 mg tablet Take 50 mg by mouth if needed each day. 01/22/20 23 Active VITAMIN B COMPLEX ORAL Take 1 tablet by mouth in the morning. 01/16/20 20 Active metoprolol succinate XL (Toprol-XL) 25 mg 24 hr tabletIndications :Primary hypertension Take 1 tablet (25 mg) by mouth in the morning. 30 tablet 2 06/21/19 25 025 Active Encounters Date Type Department Care Team Description 08/03/2024 Orders Only [facility] [address] [place] [address] Kay Carrillo CNP Other chest pain (Primary Dx) 07/29/2024 Telephone [facility] [address] [place] [address] Peyton Bloom MA 07/26/2024 Abstract [facility] [address] [place] [address] Erendira Tom PA-C 07/08/2024 Abstract [facility] [address] [place] [address] Erendira Tom PA-C 06/20/2024 8:25 AM EDT - 06/20/2024 11:59 PM EDT Hospital Encounter [facility] [address] [place] [address] Other chest pain Discharge Disposition: Home or Self Care () 06/20/2024 8:00 AM EDT Office Visit [facility] [address] [place] [address] Erendira Tom PA-C Primary hypertension (Primary Dx); [...] Recorded Patient Health Questionnaire-2 Score 2 06/20/2024 Comments Unknown Sex and Gender Information Value Date Recorded Sex Assigned at Not on file Legal Sex Female 2:34 PM EST Gender Identity Not on file [...] 06/20/2024 8:14 AM EDT Plan of Treatment Health Maintenance Due Date Last Done Comments Diabetes: Hemoglobin A1C 1980 Diabetes: Retinopathy Screening 1990 Diabetes: Urine Protein Screening 09/25/1999 HPV/Cotest 2010 Varicella Vaccines (1 of 2 - 13+ 2-dose series) 01/16/2014 Mammogram 2020 COVID-19 Vaccine ( season) 2024 12/07/2023, 12/22/2022, 02/07/2022, Additional history exists Influenza Vaccine (#1) 2024 , 12/22/2022, 12/23/2021, Additional history exists Depression Screening 06/20/2025 06/20/2024 Cervical Cancer Screening 05/24/2026 Pap Smear 05/24/2026 05/25/2023 Zoster Vaccines (1 of 2) 2030 Adult Tetanus 09/03/2031 09/02/2021 Pneumococcal Vaccine: Pediatrics (0 to 5 Years) and At-Risk Patients (6 to 64 Years) Completed 02/07/2022, 12/02/2017 Hepatitis B Vaccines Completed 05/25/2023, 12/22/2022, 06/23/2022 HIB Vaccines Aged Out No longer eligi [...] MUSE Atrial Rate 88 BPM GE MUSE ME Interval 132 ms GE MUSE QRS DURATION 82 ms GE MUSE QT Interval 386 ms GE MUSE QTC CALCULATION(BAZE TT) 467 ms GE MUSE P Tell 53 degrees GE MUSE R-Tell 26 degrees GE MUSE T Wave Tell 50 degrees GE MUSE 06/20/2024 8:37 AM [...] SAMER J. (57) on 06/20/2024 10:38:53 AM us Erendira Tom PA-C ECG ORDERABLES Final Res ult AMELIE GIRON from Last 3 Months Insurance [facility] MEDICAID Care Teams Director Employment Relationship Specialty Start Date End Date Loreto Mcneal [address] PCP - General 03/30/24
--- OUTSIDE RECORDS SUMMARY | 2024-09-15 06:49 | XMS_ITS | Encounter Summary ---
Author Organization [facility] Address [address] [place] [address] Care Team Providers Care Deposit Refund Clerk Name Role Phone Key Andrea PIT WORKER POWER SHOVEL Unavailable Shawna Dudley DO Primary Care Provider [phone] Sasha Santos DO Unavailable [phone] Mendez Ortiz DO Unavailable [phone] Encounter Details Date Type Department Care Team (Late Contact Info) Description 08/10/2024 External Result Encounter [facility] External Department Unsolicited Mendez Ortiz DO [address] [place] [address] Social History Tobacco Use Types Packs/Day Years [...] Upcoming Encounters Date Type Department Care Team ([facility] Contact Info) Description 12/01/2024 11:00 AM EDT Office Visit [facility] [address] [place] [address] Cleo Zambrano MD [address] [place] [address] 05/31/2025 1:00 PM EDT Office Visit [facility] [address] [facility] [place] [id number] Roel Garber, DO [address] [place] [address] 08/18/2025 2:00 PM EDT Office Visit [facility] [place] [address] [place] [address] Mendez Ortiz DO [address] [place] [address] documented as of this encounter Procedures Procedure Name Priority Date/Time Associated Diagnosis Comments XR CHEST 1 VIEW 08/10/2024 10:42 AM EDT documented in this encounter Results * XR chest 1 view (08/10/2024 10:42 AM EDT) Anatomical Region Laterality Modality Chest Radiographic Michelle ging 08/10/2024 10:4 2 AM EDT Impressions 08/10/2024 10:45 AM EDT NO PNEUMOTHORAX. LOW LUNG VOLUMES WITH BIBASILAR ATELECTASIS. Impression dictated by: Alin Ornelas Jr., D.O. 08/10/2024 10:43 AM Dictation Location: [place] [address] Transcribed By: PWS 08/10/24 1043 Dictated By: Alin Ornelas Jr, DO 08/10/24 1042 Signed By: <Electronically signed by Alin Ornelas Jr, DO in OV> 08/10/24 1043 Narrative 08/10/2024 10:45 AM EDT [facility] [place] [address] [place] [address] XRay Report Signed Patient: Karma Candelaria MR#: [id number] : 1980 Acct:[id number] Age/Sex: 43 / F ADM Date: 08/10/24 Loc: [place] Room: Type: [facility] Attending Dr: Mendez Ortiz DO Copies to: Mendez Ortiz DO Ordering Provider: Mendez Ortiz DO Date of Service: 08/10/24 XR/XR chest 1V portable: In PACU: Possible Pneumothorax SINGLE VIEW CHEST CLINICAL HISTORY: Inspire placement COMPARISON: None FINDINGS: Expiratory device is noted. No pneumothorax is seen. Low lung volumes with bibasilar atelectasis. Evidence of old granulomatous disease. XR/XR chest 1V portable Procedure Note Alin Ornelas Jr., - 09/08/2024 [facility] [place] [address] [place] [address] XRay Report Signed Patient: Karma Candelaria AMR#: [id number] : 1980Acct:[id number] Age/Sex: 43 / FADM Date: 08/10/24 Loc: [place] Room:Type: [facility] Attending Dr: Mendez Ortiz DO Copies to: Mendez Ortiz DO Ordering Provider: Mendez Ortiz DO Date of Service: 08/10/24 XR/XR chest 1V portable: In PACU: PossiblePneumothorax SINGLE VIEW CHEST CLINICAL HISTORY: Inspire placement COMPARISON: None FINDINGS: Expiratory device is noted. No pneumothorax is seen. Low lung volumeswith bibasilar atelectasis. Evidence of old granulomatous disease. XR/XR chest 1V portable IMPRESSION: NO PNEUMOTHORAX. LOW LUNG VOLUMES WITH BIBASILAR ATELECTASIS. Impression dictated by: Alin Ornelas Jr., D.O. 08/10/2024 10:43 AM Dictation Location: [place] [address] Transcribed By: [facility] 08/10/24 1043 Dictated By: Alin Ornelas Jr, DO 08/10/24 1042 Signed By: <Electronically signed by Alin Ornelas Jr, DO inOV> 08/10/24 1043 us Mendez Ortiz DO IMG XR PROCEDURES Edited Re sult - Final documented in this encounter Visit Diagnoses Not on filedocumented in this encounter Care Teams Deposit Refund Clerk Relationship Specialty Start Date End Date Vicky DudleytyDO [address] [place] [address] PCP - General Family Medicine 04/14/22 Key Andrea NP [address] [place] [address] Referring Physician Family Medicine 08/13/23 Sasha Santos DO [address] [place] [address] Referring Physician Neurology 05/10/24 Mendez Ortiz DO [address] [place] [address] Otolaryngology 08/19/24 documented as of this encounter
--- OUTSIDE RECORDS SUMMARY | 2024-09-15 06:49 | XMS_ITS | Encounter Summary ---
Author Organization [facility] tem Address [id number] [address] [place] [address] Care Team Providers Care Plugger Man Name Role Phone Services, [facility], [facility] Primary Care Provider Reason for Visit * Reason Comments Med Refill Encounter Details Date Type Department Care Team (Late st Contact Info) Description 12/04/2021 Refill [facility] [address] [place] [phone] Gil Alba, PA [address] [facility] [place], [place] [id number] Social History Tobacco Use Types Packs/Day Years [...] requests. The patient must contact our office. [phone] documented in this encounter Plan of Treatment Not on file documented as of this encounter Visit Diagnoses Not on filedocumented in this encounter Additional Health Concerns Assessment Noted Time PHQ-9 Depression Total Score: 0 05/03/19 21 3:00 PM EST A Body Mass Index follow-up plan has been documented for the patient 02/10/2020 2:00 PM EST documented as of this encounter Care Teams Plugger Man Relationship Specialty Start Date End Date Services, [facility] [address] [place], [place] PCP - General Family Medicine 10/05/23 documented as of this encounter
--- OUTSIDE RECORDS SUMMARY | 2024-09-15 06:49 | XMS_ITS | Encounter Summary ---
Author Organization [facility] Address [address] [place] [address] Care Team Providers Care Engagement Engineer Name Role Phone Zully, Key STEAM BOX TENDER Unavailable Shawna Dudley DO Primary Care Provider [phone] Sasha Santos DO Unavailable [phone] Mendez Ortiz DO Unavailable Encounter Details Date Type Department Care Team (Late Contact Info) Description 06/27/2024 Abstract [facility] [address] [place] [address] Roel Garber, DO [address] [facility] [address] [place], [place] [id number] Social History Tobacco Use Types Packs/Day Years [...] Upcoming Encounters Date Type Department Care Team ([facility] Contact Info) Description 12/01/2024 11:00 AM EDT Office Visit [facility] [address] [place] [address] Cleo Zambrano MD [address] [place] [address] 05/31/2025 1:00 PM EDT Office Visit [facility] [address] [facility] [place] [address] Roel Garber, DO [address] [facility] [place] [address] 08/18/2025 2:00 PM EDT Office Visit [facility] [address] [place] [address] Mendez Ortiz DO [address] [place] [address] documented as of this encounter Visit Diagnoses Not on filedocumented in this encounter Care Teams Engagement Engineer Relationship Specialty Start Date End Date Shawna Dudley DO [address] [facility] [place] [address] PCP - General Family Medicine 04/14/22 Key Andrea NP [address] [place] [address] Referring Physician Family Medicine 08/13/23 Sasha Santos DO [address] [place] [address] Referring Physician Neurology 05/10/24 Mendez Ortiz DO [address] [place] [address] Otolaryngology 08/19/24 documented as of this encounter
--- OUTSIDE RECORDS SUMMARY | 2024-09-15 06:49 | XMS_ITS | Encounter Summary ---
Author Organization [facility] Address [id number] [address] [place] [address] Care Team Providers Care Agricultural Produce Packer Name Role Phone [facility], [facility] Primary Care Provider Encounter Details Date Type Department Care Team (Late st Contact Info) Description 05/28/2020 Telephone [facility] [address] [place] [phone] Zelalem Pathak MD [address]. Provider retired 05/31/24 [place] [address] Social History Tobacco Use Types [...] documented as of this encounter Care Teams Agricultural Produce Packer Relationship Specialty Start Date End Date Services, [facility] [address] [place], [place] PCP - General Family Medicine 10/05/23 documented as of this encounter
--- OUTSIDE RECORDS SUMMARY | 2024-09-15 06:50 | XMS_ITS | CCD ---
Author Organization [facility] CliniSynv Care Team Providers Care Licensed Surveyor Name Role Phone Juan Ramon Jean Unavailable [...] Garg Unavailable DOMENICA OLIVA Primary Care Physician [phone] HILARY GRANADO Referring Unavailable HILARY GRANADO Attending Unavailable RumschlaShawna maloney DO Primary Care Provider MD Yo Blank Attending Provider DO Shawna Mcfadden Primary Care Provider RUMPARKER SHAWNA K Referring Unavailable RUMSCHLAG, SHAWNA K Primary Care Unavailable RUMSCHLAG, SHAWNA K Referring Unavailable RUMSCHLAG, SHAWNA K Primary Care Unavailable DEEPIKA ROBLEDO Attending Unavailable JORGE, CARMEN Referring Unavailable RUMSCHLAG, SHAWNA K Primary Care Unavailable DWAYNE KHOURY Attending Unavail able RUMSCHLAG, SHAWNA K Referring Unavailable SERVICES, [facility] Care Unava ilable Fredis HYLTON - CROTCH BREAKER, Loreto Primary Care Prov ider SERVICES, [facility] Primary Care Unava ilable SHAMMO, RORY Referring Unavailable RUMSCHLAG, SHAWNA K Primary Care Unavailable SHAMMO, RORY Referring Unavailable RUMSCHLAG, SHAWNA K Primary Care Unavailable PETE SILVER Attending Unavailable SILVERPETE Referring Unavailable RUMSCHLAG, SHAWNA K Primary Care Unavailable SILVERPETE CLEMENS Admitting Unavailable SILVERPETE Attending Unavailable RUMSCHLAG, SHAWNA K Referring Unavailable RUMSCHLAG, SHAWNA K Primary Care Unavailable JORGE, CARMEN Referring Unavailable SERVICES, [facility] Primary Care Unava ilable GAURAV SELLERS Attending Unavailable RUMSCHLAG, SHAWNA K Referring Unavailable RUMSCHLAG, SHAWNA K Primary Care Unavailable Zully CROTCH BREAKER, Key Unavailable Rumschlag DO, Shawna Primary Care Provider Shammo ENGINEERING MECHANIC-BC, Rory T Primary Care Provider [phone] Mio Marroquin DO Attending Provider Unavailab le Rumschlag DO, Shawna K [facility] Laila Santos DO Unavailable Shammo ENGINEERING MECHANIC-BC, Rory T Primary Care Provider Mio Marroquin DO Attending Provider Unavailab le Bk DALE, Andrius Arlyn Attending Unavailable Gieditis , Andrius Vytautas Attending Unavailable Gimansoor DALE, Andrius Vytautas Attending Unavailable Giedraitis , Andrius [...] Referring Unavailable Mendez Cardoso DO Attending Provider [phone] Loreto Mcneal APRN Primary Care Provide r KENZIE VASQUEZ Attending Unavailable KENZIE VASQUEZ Referring Unavailable Mendez Cardoso DO Unavailable TREMANA PAULA COLON Admitting Unavailable TREMANA PAULA COLON Attending Unavailable SERVICES, [facility] Primary Care Unava ilable CLEO ZAMBRANO Attending Unavailable CLEO ZAMBRANO Referring Unavailable ROEL GARBER Attending Unavailable MENDEZ CARDOSO Attending Unavailable LAILA SANTOS Attending Unavailable ROEL GARBER Attending Unavailable MENDEZ CARDOSO Attending Unavailable BRITTANY NEVILLE Attending Unavailable ROEL GARBER Attending Unavailable ROEL GARBER Attending Unavailable CLEO ZAMBRANO Attending Unavailable MENDEZ CARDOSO Attending Unavailable LAILA SANTOS Referring Unavailable MENDEZ CARDOSO Attending Unavailable LAILA SANTOS Referring Unavailable [facility] Primary Care Provider Loreto Mcneal Primary Care Unavailab Mendez Crowley Admitting Unavailable Mendez Cardoso Attending Unavailable Mio Marroquin Attending Unavailable Rory Driver Primary Care Unavailable Mio Marroquin Admitting Unavailable Loreto Mcneal Primary Care Unavailab Mendez Crowley Admitting Unavailable Mendez Cardoso Attending Unavailable Allergies Allergy Classification Reported Allergen(s) Allergy Type Date of Onset Reaction(s) Facility Cephalosporins (antibiotic) (2 sources) Cephalexin Drug Allergy 09-14-19 17 [facility] Serotonin Reuptake Inhibitors (SSRIs) (2 sources) Citalopram Drug Allergy 09-14-19 17 [facility] (20 sources) cephalexin; Translations: [Keflex] Drug Allergy 07-08-19 13 [facility] Repository (4 sources) citalopram; Translations: [CeleXA] Drug Allergy 07-08-19 13 AOF, heart palpitation [facility] Repository (20 sources) Cephalexin; Translations: [CEPHALEXIN] Drug Allergy 07-15-19 14 [facility] Work Phone: (20 sources) Citalopram; Translations: [CITALOPRAM] Drug Allergy 07-15-19 14 Hives, anaphylaxis [facility] (5 sources) metFORMIN Drug Allergy Unknown [facility] Other (20 sources) metFORMIN; Translations: [METFORMIN] Drug Allergy 04-15-19 23 Unknown, Unknown Reaction, hypoglycemia [facility] Repository Comment on above: bottoms out to unde r 40 (20 sources) Metformin And Related Propensity to adverse reactions to drug 04-20-19 24 Other (See Comments) [facility] (20 sources) POISON DEVORAH EXTRACT; Translations: [POISON DEVORAH EXTRACT] Propensity to adverse reactions to drug (disorder) 04-15-19 23 [facility] Repository (1 source) BIGUANIDES; Translations: [BIGUANIDES] Propensity to adverse reactions to drug (disorder) 04-15-19 [facility] Repository (1 source) Cephalexin Drug Allergy 08-11-19 [facility] Repository (1 source) Citalopram Drug Allergy 08-11-19 [facility] Repository (1 source) metFORMIN Drug Allergy 08-11-19 [facility] Repository Medications Current Medications Medication Drug Class(es) Dates Sig (Normalized) Sig (Original) acetaminophen 325 mg / HYDROcodone bitartrate 5 mg oral tablet (1 source) Opioid Agonist Start: 08-10-2024 take 1 tablet by mouth every six hours as needed for pain Hydrocodone-Aceta minophen 5-325 mg tablet Active 1 TAB PO Every 6 hours as needed for pain 18 09August 10, 2024 Start: 08-10-2024 take 1 tablet by elan th every six hours as needed for pain Hydrocodone-Acetaminophen 5-325 mg table t Active 1 TAB PO Every 6 hours as needed for pain 18 09August 10, 2024 [id number] 200 actuat albuterol 0.09 mg/actuat metered dose [...] PRN Ac tive Albuterol 90 mcg/actuation aerosol (3 sources) Start: 07-27-2024 take 90 ug by [...] Start: 02-24-2023 take 1 tablet by mouth in the morning, then take 1 tablet by mouth at bedtime ascorbic acid (VITAMIN C) 500 mg tablet Take 1 tablet (500 mg total) by mouth in the morning and 1 tablet (500 mg total) before bedtime. 02/24/2023 Active Start: 02-24-2023 take 1 tablet by elan [...] 20, 2023 12:00am May 21, 2023 10:34am B Complex Vitamins (vitamin B complex) tablet (20 sources) Start: 04-20-2024 take 1 tablet by mouth once daily B Complex Vitamins (vitamin B complex) tablet Take 1 tablet by mouth Daily 04/20/2024 Active bifidobacterium animalis [id number] unt / lactobacillus acidophilus [id number] unt oral capsule (6 sources) take 1 capsule by mouth once daily probiotic (ALIGN/RISAQUAD) CAPS capsule Take 1 capsule by mouth daily ALIGN Active bifidobacterium infantis 4 mg oral capsule (20 sources) Start: 01-07-2023 End: 08-08-2024 take 1 capsule by mouth once daily Probiotic Product (Align) capsule Take 1 capsule by mouth Daily 02/16/2023 Active blood-glucose meter (TRUE METRIX GLUCOSE METER) misc (12 sources) Start: 06-17-2018 blood-glucose meter (TRUE METRIX GLUCOSE METER) misc use to test BLOOD SUGAR TWICE DAILY 1 each 06/17/2018 Active Start: 06-17-2018 blood-glucose meter (TRUE METRIX GLUCOSE METER) misc use to test BLOOD SUGAR TWICE DAILY 1 each 0 06/17/2018 Active cetirizine hydrochloride 10 mg oral tablet (20 sources) Histamine-1 Receptor Antagonist Start: 02-06-2020 take 1 tablet by mouth once daily cetirizine (ZyrTEC) 10 mg tablet TAKE 1 TABLET BY MOUTH DAILY 30 tablet 5 02/06/2020 Active cholecalciferol 0.125 mg oral tablet (20 sources) Vitamin D Start: 07-27-2024 take 1 tablet by mouth once daily in the morning Cholecalciferol (Vitamin D3) (Vitamin D3) 125 mcg (5,000 unit) tablet Active 125 MCG PO Every morning July 27, 2024 12:00am Start: 02-24-2023 End: 07-27-2024 take 1 capsule by mouth once daily cholecalciferol (Vitamin D-3) 50 MCG (1999 UT) capsule Take 2,000 Units by mouth Daily 02/24/2023 Active Start: 04-09-2021 take 1 capsule by mo uth in the morning cholecalciferol (Vitamin D-3) 50 MCG (2000 UT) capsule Take 2,000 Units by mouth in the morning. 02/24/2023 Active take 1 capsule by mo uth every twenty-four hours Vitamin D3 50 MCG (2000 UT) 1 capsule Orally Once a day Not-Taking/PRN CHOLECALCIFEROL, VITAMIN D3, ORAL (1 source) Start: 04-09-2021 take 5000 [IU] by mouth in the morning CHOLECALCIFEROL, VITAMIN D3, ORAL Take 5,000 Units by mouth in the morning. 04/09/2021 Active ciclopirox 7.7 mg/ml topical cream (20 sources) [...] tablet (20 sources) Muscle Relaxant Start: 11-16-2023 cyclobenzaprin e (Flexeril) 10 MG tablet Take 10 mg by mouth as needed in the morning and 10 mg as needed at noon and 10 mg as needed in the evening for muscle spasms. 11/16/2023 Active Start: 11-16-2023 cyclobenzaprin e (Flexeril) 10 MG tablet Take 10 mg by mouth as needed in the morning and 10 mg as needed at noon and 10 mg as needed in the evening for muscle spasms. 11/16/2023 Active take 1 tablet by elan th three times daily as needed for muscle spasms cyclobenzaprine (FEXMID) 7.5 MG tablet Take 1 tablet (7.5 mg total) by mouth 3 (three) times a day as needed for muscle spasms. Active Cyclobenzaprine HCl (FLEXERIL PO) Take by mouth in the morning and at bedtime Take 2 at night and 1 every morning Active Diclofenac (20 sources) Nonsteroidal Anti-inflammatory Drug Start: 07-27-2024 Diclofenac Sodium (Arthritis Pain (Diclofenac)) 1 % gel Active 2 GM TOPICAL Twice daily July 27, 2024 12:00am Start: 11-16-2023 diclofenac (Vo ltaren) 75 MG EC tablet Take 75 mg by mouth as needed in the morning and 75 mg as needed in the evening. 11/16/2023 Active Diclofenac Sodiu m (VOLTAREN PO) Take by mouth in the morning and at bedtime One every morning and two every night Active docusate sodium 100 mg oral capsule (20 sources) Start: 01-07-2023 End: 08-08-2024 docusate sodium (COLACE) 100 mg capsule 01/07/2023 Active Start: 01-07-2023 take 3 capsules by m [...] morning. 30 capsule 3 04/30/2023 Active take 2 capsules by m outh in the morning DULoxetine (Cymbalta) [address] capsule Take 60 mg by mouth in the morning and 60 mg before bedtime. Do not crush or chew. Active empagliflozin 25 mg oral tablet (20 sources) Sodium-Glucose Cotransporter 2 Inhibitor Start: 05-20-2023 End: 11-02-2024 take 1 tablet by mouth once daily empagliflozin (Jardiance) 25 MG Indications: 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, unspecified whether termite helper insulin use (HCC) Take 1 tablet (25 mg) by mouth Daily 30 tablet 2 08/04/2024 11/02/2024 Active etonogestrel 68 mg drug implant (20 [...] tablet Active 40 MG PO Twice daily 60 30 August 08, 2024 12:00am Start: 05-20-2023 End: 07-27-2024 take 1 tablet by mouth once daily famotidine (Pepcid) 40 MG tablet Take 40 mg by mouth Daily 05/19/2024 Active Start: 10-14-2018 take 1 tablet by elan twice daily famotidine (PEPCID) 20 mg tablet TAKE 1 TABLET BY MOUTH TWICE DAILY 60 tablet 5 04/09/2020 Active take [address] [facility] once daily famotidine (PEPCID) 20 MG tablet Take 2 tablets by mouth daily Active ferrous gluconate 256 mg oral tablet (1 source) ferrous gluconat e (FERGON) 256 mg (28 mg iron) tablet Take 246 mg by mouth in the morning. Active ferrous sulfate 140 mg extended release oral tablet (20 sources) Start: 07-27-2024 take 1 tablet by mouth once daily Ferrous Sulfate (Slow Release Iron) 140 mg (45 mg iron) tablet extended release Active 140 MG PO Daily July 27, 2024 12:00am Start: 04-09-2020 [facility] ferrous sulfate 325 (65 FE) mg tablet TAKE 1 TABLET BY MOUTH DAILY 30 tablet 5 04/09/2020 Active fexofenadine hydrochloride 180 mg oral tablet (20 sources) Histamine-1 Receptor Antagonist Start: 02-24-2023 take 1 tablet by mouth once daily fexofenadine (Ros) 180 MG tablet Take 180 mg by mouth Daily 02/24/2023 Active take 1 tablet by mouth in the mo [facility] fexofenadine (ROS) 60 mg tablet Take 1 tablet (60 mg total) by mouth in the morning. Active fluconazole 150 mg oral tablet (3 sources) Azole Antifungal Start: 07-27-2024 take 1 tablet by mouth once as needed Fluconazole 150 mg tablet Active 150 MG PO Once as needed for yeast infection July 27, 2024 12:00am FLUoxetine 60 mg oral tablet (20 sources) Serotonin Reuptake Inhibitor Start: 07-14-2019 take 1 tablet by mouth once daily in the morning Fluoxetine 60 mg tablet Active 60 MG PO Every morning October 15, 2023 12:00am Start: 07-14-2019 End: 10-15-2023 take 1 capsule by mouth once daily Fluoxetine 40 mg capsule Discontinued 40 MG PO Daily May 20, 2023 12:00am October 15, 2023 9:28am take 3 capsules by m outh once [...] 27, 2024 12:00am administer into each nostril Start: 07-16-2020 take 2 spray(s) nasa l route once daily fluticasone propionate (FLONASE) 50 mcg/actuation nasal spray instill 2 (TWO) sprays in EACH nostril ONCE DAILY 16 g 07/16/2020 Active take 1 spray(s) nasa l route once [...] / neomycin 3.5 mg/ml / polymyxin b 11942 unt/ml otic solution (1 source) Aminoglycoside Antibacterial, Polymyxin-class Antibacterial, Corticosteroid Start: 10-22-2021 End: 10-29-2021 phjeamor-wlfwvuyxt-bspdbvllv isone (CORTISPORIN) 3.5-75834-[address] 4 drops into the [...] by mouth in the morning. 02/13/2019 Active lansoprazole 30 mg delayed release oral capsule (20 sources) Proton Pump Inhibitor Start: 04-29-2024 End: 06-14-2024 take 1 capsule by mouth once daily lansoprazole (Prevacid) [address] capsule Take 30 mg by mouth Daily 05/19/2024 Active lidocaine 0.05 mg/mg medicated patch (3 sources) Antiarrhythmic, Amide Local Anesthetic Start: 07-27-2024 apply 1 dose topically once daily as needed for pain Lidocaine 5 % adhesive patch,medicated Active 1 PATCH TOPICAL Daily as needed for pain July 27, 2024 12:00am lisdexamfetamine dimesylate 70 mg oral capsule (20 sources) Central Nervous System Stimulant Start: 01-09-2022 lisdexamfetamine (VYVANSE) 70 mg capsule 01/09/2022 Active lurasidone hydrochloride 120 mg oral tablet (20 sources) Atypical Antipsychotic Start: 04-17-2020 take 1 tablet by mouth once daily in the morning Lurasidone 120 mg tablet Active 120 MG PO Every morning October 15, 2023 12:00am Start: 01-19-2020 End: 10-15-2023 take 1 tablet by mouth once daily Lurasidone 80 mg tablet Discontinued 80 MG PO Daily May 20, 2023 12:00am October 15, 2023 9:30am lurasidone (Latu da) 120 MG tablet Take [...] BY MOUTH NIGHTLY 30 tablet 07/16/2020 Active Mounjaro 2.5 MG/0.5ML solution auto-injector (10 sources) [...] by mouth in the morning. 12/26/2022 Active uxkoblxw-dzgw-XX-calcium &mi ns (THERAGRAN-M) 9 mg iron-400 mcg tablet (12 sources) ssevlntt-xiqy-RE -calcium &mins (THERAGRAN-M) 9 mg iron-400 mcg tablet Take 1 tablet by mouth in the morning. Active zejbjbee-ssfi-VD -calcium &mins (THERAGRAN-M) 9 mg iron-400 mcg tablet Take 1 tablet by mouth in the morning. 0 Active Multivitamin preparation (20 sources) Multivitamin Act amaury Multivitamin With Folic Acid (Daily-Karely (With Folic Acid)) 400 mcg tablet (6 sources) Start: 05-20-2023 take 1 tablet by [...] by mouth as needed for Pain Active NON FORMULARY (20 sources) NON FORMULARY Murillo ir, Skin & Nails - 2 gummies in the morning Active NON FORMULARY Ne osporin cream- applies to bilateral nostrils 3 times a day Active NON FORMULARY Murillo ir, Skin & Nails - 2 gummies in the morning 0 Active NON FORMULARY Ne osporin cream- applies to bilateral nostrils 3 times a day 0 Active nystatin [id number] unt/ml topical cream (17 sources) Polyene Antifungal [...] Discontinued 20 MG PO Twice daily 60 June 14, 2024 12:00am July 27, 2024 11:36am take 1 tablet by elan th before mealtime pantoprazole (ProtoNix) 40 MG EC tablet Take 40 mg by mouth in the morning. Take before meals. Do not crush, chew, or split. Active pioglitazone 30 mg oral tablet (20 sources) Peroxisome Proliferator Receptor alpha Agonist, Peroxisome Proliferator Receptor gamma Agonist, Thiazolidinedione Start: 05-10-2020 End: 08-04-2024 take 1 tablet by mouth once daily pioglitazone (ACTOS) 30 mg tablet Take 1 tablet (30 mg total) by mouth daily. 30 tablet 5 05/10/2020 Active plecanatide 3 mg oral tablet (9 sources) Start: 02-27-2023 take 1 tablet by mouth in the morning TRULANCE 3 mg tablet Take 1 tablet by mouth in the morning. 02/27/2023 Active Start: 02-05-2023 take 1 tablet by elan th every twenty-four hours Trulance 3 MG 1 tablet Orally Once a day for 30 days Jan, Active polyethylene glycol 3350 [id number] mg / potassium chloride 2970 mg / sodium bicarbonate 6740 mg / sodium chloride 5860 mg / sodium sulfate 77401 mg powder for oral solution (2 sources) Osmotic Laxative Start: 03-17-2023 Golytely 236 GM 236 ml Orally 8 ounces every 15 minutes for 1 days PLEASE CHECK ALLERGIES Mar, Active prasterone (DHEA) (3 sources) Start: 07-27-2024 take 1 tablet by [...] Nausea, # 20 tab(s), Refills(s) 0, Pharmacy: [id number], 157, cm, 03/10/19 12:21:00 EST, Height/Length Measured, 100.7, kg, 03/10/19 12:21:00 EST, Weight Measured Start Date: 06/13/19 Status: Ordered rizatriptan 10 mg oral tablet (20 sources) Serotonin-1b and Serotonin-1d Receptor Agonist Start: 06-02-2022 Rizatriptan (Maxalt) 10 mg tablet Active 10 MG PO . NEEDED as needed for migraine headache May 20, 2023 12:00am Start: 01-16-2019 take 1 tablet by elan th every two hours, then take 2 tablets by mouth once daily rizatriptan (MAXALT) 10 mg tablet TAKE 1 TABLET BY MOUTH at onset of migraine, may repeat after 2 hours if needed (max 2 tablets per day, 2 days per week) 2 01/16/2019 Active rosuvastatin calcium 10 mg oral tablet (20 [...] tablet by elan th in the morning rosuvastatin (CRESTOR) 20 mg tablet Take 1 tablet (20 mg total) by mouth in the morning. Active Rosuvastatin Leonardo cium Active 1 mg dose 1.5 ml semaglutide 1.34 mg/ml pen injector (20 sources) Start: 01-15-2022 semaglutide 1 mg/dose (2 mg/1.5 mL) pen injector 2 mg once a week. 01/15/2022 Active Start: 01-15-2022 semaglutide 1 mg/dose (2 mg/1.5 mL) pen injector Waiting for approval to take the 2mg dose not 1 dose 0 01/15/2022 Active Ozempic (0.25 or 0.5 MG/DOSE) 2 MG/1.5ML as directed Subcutaneous Not-Taking sulfamethoxazole 800 mg / trimethoprim 160 mg oral tablet (1 source) Dihydrofolate Reductase Inhibitor Antibacterial, Sulfonamide Antimicrobial Start: 08-10-2024 take 1 tablet by mouth twice daily Sulfamethoxazole-Trimethoprim (Bactrim Ds) 800-160 mg tablet Active 1 TAB PO Twice daily 14 August 10, 2024 12:00am SUMAtriptan 100 mg oral tablet (20 sources) Serotonin-1b and Serotonin-1d Receptor Agonist Start: 06-20-2024 take 1 tablet by mouth once daily as needed SUMAtriptan (Imitrex) 100 MG tablet Indications: Migraine with aura and without status migrainosus, not intractable TAKE 1 TABLET BY MOUTH DAILY NEEDED [...] for migraine headache May 20, 2023 12:00am Start: 11-03-2018 take [...] 5000 mg testosterone 0.01 mg/mg topical gel (3 sources) Androgen Start: 07-27-2024 Testosterone 50 mg/5 gram (1 %) gel Active 50 MG TRANSDERML Daily July 27, 2024 12:00am Tirzepatide (3 sources) Start: 07-27-2024 Tirzepatide (Mounjaro) 2.5 mg/0.5 mL pen injector Active 2.5 MG SUBCUT Once a week July 27, 2024 12:00am tirzepatide (MOUNJARO) 2.5 mg/0.5 mL pen injector (1 source) tirzepatide (MOUNJARO) 2.5 mg/0.5 mL pen injector Inject 2.5 mg under the skin every 7 days. Active Tirzepatide (Mounjaro) 2.5 MG/0.5ML solution auto-injector (10 sources) Start: 04-11-2024 End: 05-11-2024 Tirzepatide (Mounjaro) 2.5 MG/0.5ML solution auto-injector Indications: 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, unspecified whether jail insulin use (CMS/HCC) Inject 2.5 mg under the skin every 7 (seven) days 2 mL 3 04/11/2024 05/11/2024 Active Start: 04-07-2024 End: 05-07-2024 Tirzepatide (Mounjaro) 2.5 M G/0.5ML solution auto-injector Indications: 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, unspecified whether jail insulin use (CMS/HCC) Inject 2.5 mg under the skin every 7 (seven) days 2 mL 3 04/07/2024 05/07/2024 Active Tirzepatide (Mounjaro) 5 MG/0.5ML solution auto-injector (10 sources) Start: 08-04-2024 End: 11-02-2024 Tirzepatide (Mounjaro) 5 MG/0.5ML solution auto-injector Indications: 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, unspecified whether termite helper insulin use (HCC) Inject 5 mg under the skin every 7 (seven) days 6 mL 1 08/04/2024 11/02/2024 Active Start: 08-04-2024 End: 11-02-2024 Tirzepatide (Mounjaro) 5 MG/ 0.5ML solution auto-injector Indications: 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, unspecified whether termite helper insulin use Inject 5 mg under the [...] Active TRULICITY 3 mg/0.5 mL pen injector (11 sources) Start: 10-15-2022 TRULICITY 3 mg/0.5 mL pen injector Injects on Sundays10/15/2022 Active Start: 10-15-2022 TRULICITY 3 mg /0.5 mL pen injector Injects on Sundays 0 10/15/2022 Active Ventolin HFA 90 mcg/inh Aerosol (1 source) Start: 10-14-2018 Ventolin HFA 9 0 mcg/inh Aerosol Refill(s) 0 Start Date: 10/14/18 Status: Ordered Vitamin B Complex (12 sources) Start: 01-16-2020 take 1 tablet by mouth once daily B COMPLEX-VITAMIN B12 tablet TAKE 1 TABLET BY MOUTH DAILY 30 tablet 5 01/16/2020 Active Vitamin B Complex (Vitamins B Complex) tablet (3 sources) Start: 07-27-2024 take 1 tablet by [...] Dulaglutide (Trulicity) 3 mg/0.5 mL pen injector (6 sources) Start: 05-20-2023 End: 05-21-2023 Dulaglutide (Trulicity) 3 mg/0.5 mL pen injector Discontinued MG SUBCUT May 19, 2023 11:00pm May 21, 2023 9:20am Start: 05-20-2023 End: 05-21-2023 Dulaglutide (Trulicity) 3 mg /0.5 mL pen injector Discontinued MG SUBCUT May 20, 2023 12:00am May 21, 2023 10:20am Duloxetine 30 mg capsule,delayed release(DR/EC) (5 sources) Start: 05-21-2023 End: 10-15-2023 take 1 [...] 2023 8:27am Etonogestrel (Nexplanon) 68 mg implant (6 sources) Start: 05-20-2023 End: 07-27-2024 Etonogestrel (Nexplanon) [...] 04-20-2023 ketorolac (TORADOL) injectio n 30 mg linaclotide 0.29 mg oral capsule (20 sources) Guanylate Cyclase-C Agonist Start: 05-21-2023 End: 08-08-2024 take 1 capsule by mouth once daily in the morning Linaclotide (Linzess) 290 mcg capsule Discontinued 290 MCG PO Every morning June 02, 2024 9:58am August 08, 2024 1:58pm take 1 capsule by mouth in the m orning linaCLOtide (LINZESS) 72 mcg capsule Take 1 capsule (72 mcg total) by mouth in the morning. Active 3 ml liraglutide 6 mg/ml pen injector [...] Subcutaneous Not-Taking Plecanatide (Trulance) 3 mg tablet (6 sources) Start: 05-21-2023 End: 05-21-2023 take 1 tablet by mouth once daily Plecanatide (Trulance) 3 mg tablet Discontinued 3 MG PO Daily May 20, 2023 11:00pm May 21, 2023 10:36am Start: 05-21-2023 End: 05-21-2023 take 1 tablet by mouth once daily Plecanatide (Trulance) 3 mg tablet Discontinued 3 MG PO Daily May 21, 2023 12:00am May 21, 2023 11:36am polyethylene glycol 3350 57649 mg powder for oral solution (7 sources) [...] Jan, Active 50 ml sodium chloride 9 mg/m l injection (1 source) Start: 01-13-2024 End: 01-13-2024 1,000 mL (10.4 mL/kg), IntraVENous, at 983.6 mL/hr, Administer over 61 Minutes, ONCE, On Thu01/13/24 at 1530, For 1 dose, For adult patients weighing > 55 kg (120 lbs.) and less than Tirzepatide (4 sources) Start: 06-02-2024 End: 07-27-2024 Tirzepatide (Mounjaro) [...] disorder; Translations: [Post-traumatic stress disorder, unspecified] Onset: Chronic Asthma (20 sources) Asthma; Translations: [Unspecified asthma, uncomplicated] Onset: 4 03-10-2023 Chronic Attention-deficit, conduct, and disruptive behavior disorders (9 sources) Attention-deficit hyperactivity disorder, unspecified type; Translations: [Attention deficit disorder with hyperactivity] Chronic Contraceptive and procreative management (3 sources) Subcutaneous [...] tripping, or stumbling] 04-20-2023 Episodic Esophageal disorders (8 sources) Gastroesophageal reflux disease; Translations: [Gastro-esophageal reflux disease without esophagitis] 06-15-2024 Chronic Essential hypertension (2 sources) Essential (primary) hypertension; Translations: [Essential (primary) hypertension] Onset: Chronic Gastrointestinal hemorrhage (1 source) Hemorrhage of anus and rectum Episodic Headache; including migraine (2 sources) Tension-type headache; Translations: [Tension-type headache, unspecified, not intractable] 11-30-2023 Chronic Mycoses (2 sources) Onychomycosis of toenails; Translations: [Tinea unguium] 04-18-2024 Episodic Nausea and vomiting (1 source) Nausea 11-26-2018 Episodic Nutritional deficiencies (20 sources) Vitamin D [...] (20 sources) Reactive hypoglycemia; Translations: [Other hypoglycemia] Onset: 5 Resolved: 5 05-20-2023 Chronic Other endocrine disorders (8 sources) Other hypoglycemia Chronic Other endocrine disorders (4 sources) Disorder of endocrine system; Translations: [Endocrine disorder, unspecified] 04-18-2024 Episodic Other gastrointestinal disorders (6 sources) Irritable bowel syndrome; Translations: [Irritable bowel syndrome without diarrhea] 05-21-2023 Chronic Other gastrointestinal disorders (6 sources) Irritable bowel syndrome without diarrhea; Translations: [Irritable bowel syndrome] 05-21-2023 Chronic Other gastrointestinal disorders (1 source) Intestinal malabsorption, unspecified; Translations: [Intestinal malabsorption, unspecified] Onset: 4 Chronic Other gastrointestinal disorders (2 sources) Irritable bowel syndrome with constipation; Translations: [Irritable bowel syndrome] 08-08-2024 Chronic Other gastrointestinal disorders (10 sources) Constipation, unspecified; Translations: [Constipation, unspecified] Episodic Other inflammatory condition of skin (2 sources) Itching ; Translations: [Pruritus, unspecified] 08-02-2024 Episodic Other injuries and conditions due to external causes (1 source) Closed injury of head; Translations: [Unspecified injury of head, initial encounter] 04-20-2023 Episodic Other liver diseases (15 sources) Fatty (change of) liver, not elsewhere classified; Translations: [Other chronic nonalcoholic liver disease] Onset: 2 Resolved: 2 Chronic Other nervous system disorders (9 sources) Circadian rhythm sleep disorder, shift work type; Translations: [Circadian rhythm sleep disorder, shift work type] Chronic Other nervous system disorders (6 sources) Chronic pain; Translations: [Other chronic pain] Onset: 5 Resolved: 5 08-17-2024 Chronic Other nervous system disorders (2 sources) Paresthesia; Translations: [Paresthesia of skin] 11-30-2023 Episodic Other nervous system disorders (1 source) Other acute postprocedural pain; Translations: [Other acute postprocedural pain] Onset: 5 Episodic Other non-traumatic joint disorders (2 sources) Ankle pain; Translations: [Ankle Pain] Onset: 5 Episodic Other non-traumatic joint disorders (1 source) Other instability, left wrist; Translations: [Other instability, left wrist] Onset: 5 Episodic Other nutritional; endocrine; and [...] Chronic Other nutritional; endocrine; and metabolic disorders (14 sources) Body mass index 30+ - obesity; Translations: [Body mass index (BMI) 36.0-36.9, adult] 06-05-2023 Chronic Other nutritional; endocrine; and metabolic disorders (6 sources) Severe obesity; Translations: [Class 2 severe obesity due to excess calories with serious comorbidity and body mass index (BMI) of 39.0 to 39.9 in adult ([facility])] 04-07-2024 Chronic Other nutritional; endocrine; and metabolic disorders (4 sources) Weight increased; Translations: [Abnormal weight gain] 04-07-2024 Episodic Other upper respiratory disease (20 sources) Chronic rhinitis; Translations: [Chronic rhinitis] Onset: 4 03-10-2023 Chronic Residual codes; unclassified (5 sources) Obstructive sleep apnea (adult) (pediatric); Translations: [OBSTRUCTIVE SLEEP APNEA] Onset: 3 Chronic Residual codes; unclassified (11 sources) Obstructive sleep apnea syndrome; Translations: [Obstructive sleep apnea (adult) (pediatric)] 11-30-2023 Chronic Residual codes; unclassified (1 source) Pain, unspecified; Translations: [Pain, unspecified] Onset: 4 Episodic Residual codes; unclassified (1 source) Genetic susceptibility to other malignant neoplasm; Translations: [Genetic susceptibility to other malignant neoplasm] Onset: 4 Episodic Residual codes; unclassified (6 sources) Other specified health status; Translations: [Other [...] Episodic Unclassified (1 source) New Patient Onset: 4 Unclassified (1 source) Pre-procedural laboratory examination, Extensor tenosynovitis of finger, Traumatic rupture of other ligament of right wrist initial encounter, Colles' fracture of right radius initial encounter for closed fracture Onset: 5 Past or Other Problems Problem Classification Problem Date Documented Da te Episodic/Chronic Abdominal pain (2 sources) Unspecified abdominal pain; Translations: [Epigastric pain] Onset: 10-06-2023 Episodic Attention-deficit, conduct, and disruptive behavior disorders (20 sources) Attention deficit hyperactivity disorder; Translations: [Attention-deficit hyperactivity disorder, unspecified type] Onset: 04-27-2024 Resolved: 04-27-2024 05-20-2023 Chronic Biliary tract disease (20 sources) Acute cholecystitis; Translations: [Acute cholecystitis] Onset: 09-15-2016 03-10-2023 Episodic Calculus of urinary tract (19 sources) Personal history of urinary calculi; Translations: [History of calculus of kidney] Onset: 08-17-2024 Resolved: 08-17-2024 Episodic Complications of surgical procedures or medical [...] Onset: 02-25-2022 Episodic Impulse control disorders, NEC (20 sources) Impulse control disorder; Translations: [Impulse disorder, unspecified] Onset: 04-27-2024 Resolved: 04-27-2024 Chronic Lymphadenitis (20 sources) Axillary lymphadenopathy; Translations: [Localized enlarged lymph nodes] Onset: 05-10-2020 03-10-2023 Episodic Mood disorders (20 sources) Mixed bipolar affective disorder, moderate; Translations: [Bipolar disorder, current episode mixed, moderate] Onset: 04-27-2024 Resolved: 04-27-2024 Chronic Mood disorders (12 sources) Mood disorders Onset: 05-02-2020 05-02-2020 Nonmalignant breast conditions (20 sources) Large breast; Translations: [Hypertrophy of breast] Onset: 06-02-2023 Resolved: 02-18-2024 02-18-2024 Episodic Nonspecific chest pain (17 sources) Chest pain, unspecified; Translations: [Chest pain] Onset: 10-05-2023 Resolved: 08-17-2024 10-15-2023 Episodic Open wounds of extremities (20 sources) [...] Onset: 03-10-2023 03-10-2023 Episodic Other gastrointestinal disorders (8 sources) Irritable bowel syndrome characterized by constipation; Translations: [Irritable bowel syndrome with constipation] Onset: 08-17-2024 Resolved: 08-17-2024 08-08-2024 Chronic Other gastrointestinal disorders (20 sources) Constipation; Translations: [Constipation, unspecified] Onset: 08-17-2024 Resolved: 08-17-2024 03-02-2023 Episodic Other liver diseases (20 sources) Steatosis of liver; Translations: [Fatty (change of) liver, not elsewhere classified] Onset: 08-17-2024 Resolved: 08-17-2024 05-20-2023 Chronic Other liver diseases (4 sources) Abnormal levels of other serum enzymes; Translations: [ABNORMAL LEVELS OTHER SERUM ENZYMES] Onset: 02-17-2022 Episodic Other nervous system disorders (20 sources) Circadian rhythm sleep disorder of shift work type; Translations: [Circadian rhythm sleep disorder, shift work type] Onset: 04-27-2024 Resolved: 04-27-2024 05-20-2023 Chronic Other nervous system disorders (7 sources) Postoperative pain ; Translations: [Other acute postprocedural pain] Onset: 08-17-2024 Resolved: 08-17-2024 08-10-2024 Episodic Other non-traumatic joint disorders (4 sources) Pain in left ankle and joints of left foot; Translations: [PAIN IN LEFT ANKLE] Onset: 01-29-2022 Episodic Other screening for suspected conditions (not mental disorders or infectious disease) (20 sources) Elevated liver enzymes level; Translations: [Abnormal results of liver function studies] Onset: 02-25-2022 Resolved: 08-17-2024 Episodic Other upper respiratory disease (20 sources) Epistaxis; Translations: [Epistaxis] Onset: 03-10-2023 03-10-2023 Episodic Residual codes; unclassified (20 sources) Flushing; Translations: [Flushing] Onset: 03-10-2023 Resolved: 03-10-2023 03-10-2023 Episodic Spondylosis; intervertebral disc disorders; other back problems (20 sources) Backache; Translations: [Neck pain] Onset: 12-02-2022 Resolved: 02-18-2024 03-10-2023 Episodic Unclassified (12 sources) Onset: 02-10-2020 02-10-2020 Results Test Name Value Interpretation Reference Range Facility BEDSIDE GLUCOSEon 08-18-2024 Glucose [Mass/Vol] 93 mg/dL Normal 65-99 [facility] Comment on above: Performed By: #### B EDG #### [facility] ([facility]) [address] [place] [id number] VIR Glucose [Mass/Vol] 113 mg/dL High 65-99 [facility] Comment on above: Performed By: #### B EDG #### [facility] ([facility]) [address] [place] [id number] VIR POCT , URINE (NUCG) on 08-18-2024 Beta HCG ( test) Ql (U) Negative Normal Negative, Indeterminate [facility] Comment on above: Performed By: #### N UCG #### [facility] ([facility]) [address] [place] [address]4087 VIR GLUCOSE POCT GLUCOMETERSon 0 08-10-2024 Glucose [Mass/Vol] 136 mg/dL [facility] Comment on above: Random Glucose Refer ence Range is dependent on time and content of last meal. Glucose of more than 200 mg/dL in a nonstressed, ambulatory subject supports the diagnosis of Diabetes Mellitus. [facility] Glucose [Mass/Vol] 85 mg/dL [facility] Comment on above: Random Glucose Refer ence Range is dependent on time and content of last meal. Glucose of more than 200 mg/dL in a nonstressed, ambulatory subject supports the diagnosis of Diabetes Mellitus. [facility] Glucose Glucometer (BldC) [M ass/Vol]Ordered By: Mendez Cardoso on 08-10-2024 Glucose [Mass/Vol] Capillary blood gluc ose measurement by glucometer (mass/volume) [facility] Comment on above: Random Glucose Refer ence Range is dependent on time and content of last meal. Glucose of more than 200 mg/dL in a nonstressed, ambulatory subject supports the diagnosis of Diabetes Mellitus. Glucose Poct Glucometerson 0 08-10-2024 Glucose [Mass/Vol] 136 mg/dL Normal [facility] Comment on above: Result Comment: [place] Glucose Reference Range is dependent on time and content of last meal. Glucose of more than 200 mg/dL in a nonstressed, ambulatory subject supports the diagnosis of Diabetes Mellitus. PERFORMED BY: [address] [place] [address] PATHOLOGIST ASSISTANT PROFESSOR OF DIETETICS EVELYN KOVACS M.D. Performed By: #### G LULS #### Point of Care testing , Glucose [Mass/Vol] 85 mg/dL Normal [facility] Comment on above: Result Comment: [place] Glucose Reference Range is dependent on time and content of last meal. Glucose of more than 200 mg/dL in a nonstressed, ambulatory subject supports the diagnosis of Diabetes Mellitus. PERFORMED BY: [facility] [address] [place] [address] PATHOLOGIST ASSISTANT PROFESSOR OF DIETETICS EVELYN KOVACS M.D. Performed By: #### G LULS #### Point of Care testing , HCG ( test) IAgus d Ql (U)Ordered By: Hector Barlow on 08-10-2024 HCG ( test) Ql (U) Urine human chorionic gonadotropin (hCG) detection by immunoassay [facility] HCG,Urineon 08-10-2024 Beta HCG ( test) Ql (U) Negative Normal [facility] Comment on above: Result Comment: PERF ORMED BY: [place] [address] PATHOLOGIST ASSISTANT PROFESSOR OF DIETETICS EVELYN KOVACS M.D. Performed By: #### U HCG #### [address] X-ray reportOrdered By: Jay Ornelas on 08-10-2024 Study report [facility] [place] [address] XRay Report Signed Patient: Karma Whitehead MR# : [id number] : 1980 Acct:[id number] Age/Sex: 43 / F ADM Date: 5 Loc: [place] Room: Type: [facility] Attending Dr: Mendez Cardoso DO Copies to: Mendez Cardoso DO~ Ordering Provider: Mendez Cardoso DO Date of Service: 08/10/24 XR/XR chest 1V portable: In PACU: Possible Pneumothorax SINGLE VIEW CHEST CLINICAL HISTORY: Inspire placement COMPARISON: None FINDINGS: Expiratory device is noted. No pneumothorax is seen. Low lung volumes with bibasilar atelectasis. Evidence of old granulomatous disease. XR/XR chest 1V portable IMPRESSION: NO PNEUMOTHORAX. LOW LUNG VOLUMES WITH BIBASILAR ATELECTASIS. Impression dictated by: Alin Ornelas Jr., D.ORosy 08/10/2024 10:43 AM Dictation Location: [place] [address] Transcribed By: [facility] 08/10/24 1043 Dictated By: Alin Ornelas Jr, DO 08/10/24 1042 Signed By: 08/10/24 1043 [facility] XR chest 1V portableon 08-10 XR chest 1V portable [facility] [place] [address] XRay Report Signed Patient: Karma Whitehead MR#: [id number] : 1980 Acct:[id number] Age/Sex: 43 / F ADM Date: 08/10/24 Loc: [place] Room: Type: [facility] Attending Dr: Mendez Cardoso DO Copies to: Mendez Cardoso DO Ordering Provider: Mendez Cardoso DO Date of Service: 08/10/24 XR/XR chest [...] Jr., D.O. 08/10/2024 10:43 AM Dictation Location: [place] [address] Transcribed By: [facility] 08/10/24 1043 Dictated By: Alin Ornelas Jr, DO 08/10/24 1042 Signed By: 08/10/24 1043 Normal [facility] Glucose (Bld) [Mass/Vol]on 0 08-04-2024 Glucose Blood, POC 131 mg/dL [facility] Interpretation and review of laboratory results Abnormal [facility] HbA1c (Bld) [Mass fraction]o n 08-04-2024 Interpretation and review of laboratory results Normal [facility] Laboratory - Hematology and Cell countson 08-04-2024 HbA1c (Bld) [Mass fraction] 5.8 % [facility] No Panel Informationon 08-04 [facility] Healthcare Orders Onlyon 08-03-2024 Orders Only [id number] Karma Whitehead 1980 F Date Provider Department Center 08/03/2024 Elena-CHIO CARRILLO [facility] No family history on file Normal [facility] 36on 07-29-2024 36 Patient is calling b ack to follow up on Normal [facility] 36 Pt called stating th at she needs an appeal done for stress and echo. today as this is the last day and she is having surgery 08/10 and 08/18. Notes need to be recover from [place] and [place] [facility] Abstracton 07-26-2024 Abstract [id number] Karma Whitehead 1980 F Date Provider Department Center 07/26/2024 [id number] ESPINAL [facility] No family history on file Normal [facility] Urinalysis w/ Microon 2024 Amorphous sediment LM Ql (Urine sed) TRACE Abnormal NONE [facility] Comment on above: Performed By: #### L IVP #### [facility] [address] [place] [address] [place] [address] Experience Specialist: Domenica Velázquez MD Bacteria TRACE Abnormal NONE [facility] Comment on above: Performed By: #### L IVP #### [facility] [address] [place] [address] [place] [address] Experience Specialist: Domenica Velázquez MD Bilirubin, SemiQt,Ur Negative Normal NEG [facility] Comment on above: Performed By: #### L IVP #### [facility] [address] [place] [address] [place] [address] Experience Specialist: Domenica Velázquez MD Blood, Urine Negative Normal NEG [facility] Comment on above: Performed By: #### L IVP #### [facility] [address] [place] [address] [place] [address] Experience Specialist: Domenica Velázquez MD Clarity (U) Clear Normal CLEAR [facility] Comment on above: Performed By: #### L IVP #### [facility] [address] [place] [address] Experience Specialist: Domenica Velázquez MD Color (U) Yellow Normal YEL [facility] Comment on above: Performed By: #### L IVP #### [facility] [address] [place] [address] Experience Specialist: Domenica Velázquez MD Epithelial cells LM Ql (Urine sed) 0 TO 2 Normal 0-25 [facility] Comment on above: Performed By: #### L IVP #### [facility] [address] [place] [address] Dr. [place], [place] [id number] Experience Specialist: Domenica Velázquez MD Glucose Ql (U) 3+ mg/dL Abnormal NEG [facility] Comment on above: Performed By: #### L IVP #### [facility] [address] [place] [address] Dr. [place], [place] [id number] Experience Specialist: Domenica Velázquez MD Ketones Ql (U) Negative Normal NEG [facility] Comment on above: Performed By: #### L IVP #### [facility] [address] [place] [address] Dr. [place], [place] [id number] Experience Specialist: Domenica Velázquez MD Leukocyte esterase Test strip Ql (U) Negative Normal NEG [facility] Comment on above: Performed By: #### L IVP #### [facility] [address] [place] [address] Dr. [place], [place] [phone] Experience Specialist: Domenica Velázquez MD Mucus Strands TRACE Abnormal NONE [facility] Comment on above: Performed By: #### L IVP #### [facility] [address] [place] [address] Dr. [place], [place] [id number] Experience Specialist: Domenica Velázquez MD Nitrite,Ur Negative Normal NEG [facility] Comment on above: Performed By: #### L IVP #### [facility] [address] [place], [place] [id number] Experience Specialist: Domenica Velázquez MD PH,Ur 6.0 Normal 5.0-9.0 [facility] Comment on above: Performed By: #### L IVP #### [facility] [address] [place], [place] [phone] Experience Specialist: Domenica Velázquez MD Protein Ql (U) Negative Normal NEG [facility] Comment on above: Performed By: #### L IVP #### [facility] [address] [place], [place] [id number] Experience Specialist: Domenica Velázquez MD Spec. [place],Ur 1.025 High 1.010-1.020 [facility] Comment on above: Performed By: #### L IVP #### [facility] [address] [place], [place] [id number] Experience Specialist: Domenica Velázquez MD Urine RBC's 0 TO 2 Normal 0-2 [facility] Comment on above: Performed By: #### L IVP #### [facility] [address] [place], [place] [id number] Experience Specialist: Domenica Velázquez MD Urine WBC's 0 TO 2 Normal 0-5 [facility] Comment on above: Performed By: #### L IVP #### [facility] [address] [place], [place] [id number] Experience Specialist: Domenica Velázquez MD Urobilinogen,Ur Normal Normal 0.0-1.0 [facility] Comment on above: Performed By: #### L IVP #### [facility] [address] [place] [address] Dr[place], [place] [phone] Experience Specialist: Domenica Velázquez MD Urinalysis with Microscopico n 07-16-2024 Amorphous sediment LM Ql (Urine sed) TRACE Abnormal None [facility] Bacteria LM Ql (Urine sed) TRACE Abnormal None [facility] Bilirubin Ql (U) Negative NEGATIVE [facility] Clarity (U) Clear Clear [facility] Color (U) Yellow Yellow [facility] Epithelial cells LM.HPF (Urine sed) [#/Area] 0 TO 2 [facility] Glucose Test strip (U) [Mass/Vol] 3+ Abnormal NEGATIVE mg/dL [facility] test strip Ql (U) Negative NEGATIVE [facility] Interpretation and review of laboratory results Abnormal [facility] Ketones (U) [Mass/Vol] Negative NEGATIVE mg/dL [facility] Leukocyte esterase Test strip Ql (U) Negative NEGATIVE [facility] Mucus Ql (Urine sed) TRACE Abnormal None [facility] Nitrite Ql (U) Negative NEGATIVE [facility] pH (U) 6 [pH] 5.0 - 9.0 [facility] Protein (U) [Mass/Vol] Negative NEGATIVE mg/dL [facility] RBC LM.HPF (Urine sed) [#/Area] 0 TO 2 [facility] Specific gravity (U) [Rel density] 1.025 High 1.010 - 1.020 [facility] Urobilinogen Qn (U) Normal 0.0 - 1. 0 EU/dL [facility] WBC LM.HPF (Urine sed) [#/Area] 0 TO 2 [facility] XR ANKLE LEFT (MIN 3 VIEWS)o n [...] Faheem Long MD 07/16/24 Final result Normal [facility] XR Ankle - left 3 [place] 1. No acute abnormal ity. [facility] EXAMINATION: THREE XRAY VIEWS OF THE LEFT ANKLE 07/16/2024 11:49 am COMPARISON: None. HISTORY: ORDERING SYSTEM PROVIDED HISTORY: Pain Hx previous Surgery TECHNOLOGIST PROVIDED HISTORY: Pain Hx previous Surgery FINDINGS: There is no acute fracture or dislocation. There are old healed tibial and fibular fractures. The ankle mortise is intact. The bones are demineralized. There are no bony destructive lesions. [facility] Faheem Long MD - 07/16/2024 EXAMINATION: [...] destructive lesions. IMPRESSION: 1. No acute abnormality. [facility] Radiology Study observation (narrative) [facility] XR HIP BILATERAL W AP PELVIS [...] Faheem Long MD 07/16/24 Final result Normal [facility] XR LUMBAR SPINE (2-3 VIEWS)o n [...] Faheem Long MD 07/16/24 Final result Normal [facility] XR Lumbar spine 2 or 3 Views on 07-16-2024 1. Mild multilevel spondylosis. [facility] CONSOLIDATED EXAMINATION: 3 XRAY VIEWS OF THE LUMBAR SPINE 07/16/2024 11:46 am COMPARISON: None. HISTORY: ORDERING SYSTEM PROVIDED HISTORY: back pain TECHNOLOGIST PROVIDED HISTORY: back pain FINDINGS: The 5 lumbar vertebral bodies are in anatomic alignment. The vertebral body heights are maintained. There is mild multilevel spondylosis and facet arthropathy. Status post cholecystectomy. [facility] Faheem Long MD - 07/16/2024 EXAMINATION: 3 XRAY VIEWS OF THE LUMBAR SPINE 07/16/2024 11:46 am COMPARISON: None. HISTORY: ORDERING SYSTEM PROVIDED HISTORY: back pain TECHNOLOGIST PROVIDED HISTORY: back pain FINDINGS: The 5 lumbar vertebral bodies are in anatomic alignment. The vertebral body heights are maintained. There is mild multilevel spondylosis and facet arthropathy. Status post cholecystectomy. IMPRESSION: 1. Mild multilevel spondylosis. [facility] Fittr [facility] Radiology Study observation (narrative) [facility] XR Lumbar spine 2 or 3 Views Ordered By: Faheem Long on 07-16-2024 [facility] [email or web address] Work Phone: XR Pelvis and Hip - bilatera l View[place] 07-16-2024 1. No acute abnormal ity. [facility] EXAMINATION: ONE XRAY VIEW OF THE [...] lesions. 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 [facility] Faheem Long MD - 07/16/2024 EXAMINATION: [...] hip osteoarthritis. IMPRESSION: 1. No acute abnormality. [facility] Radiology Study observation (narrative) [facility] Abstracton 07-08-2024 Abstract [id number] Karma Whitehead 1980 F Date Provider Department [place] 07/08/[address] [place] [address] [facility] family history on file Normal [facility] Insertion/Removal of Contrac eptive Capsuleon 06-30-2024 [...] with steri-strips and pressure bandage applied: yes [facility] Office [place] 06-20-2024 Follow-up visit [id number] RatnaullKarma 1980 F Date Provider Department [place] 06/20/[address] [place] [address] [facility] No family history on file Level of Service:24371 [place] OFFICE/OUTPATIENT NEW LOW MDM 30 MINUTES Normal [facility] IGP,APTIMA HPV,AGE GDLNon AGE GDLN ACOG TESTING Note . [facility] Comment on above: TESTS RESULT FLAG UN ITS REF RANGE LAB Clinician Provided Cytology Information Source.............Cervix;Endocervix No. of containers..01 ThinPrep Vial Age Gildardo JENNINGS Rosana... FLAG LEGEND: L-Low Normal,H-High Normal,LL-Alert Low,HH-Alert High <-Panic Low,>-Panic High,A-Abnormal,AA-Critical Abnormal Performed at: 01 =G [address] [address] Kristin Matute MD, HPV APTIMA Negative Negative [facility] Comment on above: This nucleic acid am plification test detects fourteen high- risk HPV types (16,18,31,33,35,39,45,51,52,56,58,59,66,68) without differentiation. Performed at: =[address] [id number] Experience Specialist: Kristin Matute MD, Phone: [phone] Performed at: - [address] [id number] Experience Specialist: Kristin Matute MD, Phone: [phone] IGP, APTIMA HPV, RFX 16/18,45 Note . [facility] Comment on above: TESTS RESULT FLAG UN ITS REF RANGE LAB DIAGNOSIS: 02 NEGATIVE FOR INTRAEPITHELIAL LESION OR MALIGNANCY. THIS SPECIMEN WAS RESCREENED PART OF OUR AIR QUALITY ENGINEER PROGRAM. Specimen adequacy: 02 Satisfactory for evaluation. Endocervical and/or squamous metaplastic cells (endocervical component) are present. Performed by: 02 Caro Tejada, Lease Analyst (ASCP) QC reviewed by: 02 Hannah Valadez, Lease Analyst (ASCP) . 02 Note: Note 02 The [...] <-Panic Low,>-Panic High,A-Abnormal,AA-Critical Abnormal Performed at: [address] [address] Kristin Matute MD, BRUSH-SPATULA CERVIX ENDOCERVIX [facility] MM TOMOSYNTHESIS SCREENING B Ion 05-27-[address] [address] Mammography Report Signed Patient: KARMA WHITEHEAD MR#: [id number] : 1980 Acct:[id number] Age/Sex: 43 / F ADM Date: 05/27/24 Loc: MAMMO Attending Dr: Roel Garber D.O. Ordering Physician: Roel Garber D.O. Results: Date of Service: 05/27/24 Follow Up: Procedure(s): MM tomosynthesis screening BI Accession Number(s): [id number] cc: Roel Garber D.O.; Loreto Mcneal NP Patient Name: KARMA WHITEHEAD MR#: [id number] : 1980 Exam Date: 05/27/2024 Ordering Doctor: [...] Treatments None Family Cancers None LOCATION: The [facility] BREAST COMPOSITION: There are scattered areas [...] Serra D.O. Signed By: 05/27/24 1649 DD/ 1648 TD/TT: Operating Room Surgical Technologist: [facility] Radiology, Enocogleobardo moctezuma MD - 05/27/[address] [address] Mammography Report Signed Patient: KARMA WHITEHEAD MR#: [id number] : 1980 Acct:[id number] Age/Sex: 43 / F ADM Date: 05/27/24 Loc: MAMMO Attending Dr: Roel Garber D.O. Ordering Physician: Roel Garber D.O. Results: Date of Service: 05/27/24 Follow Up: Procedure(s): MM tomosynthesis screening BI Accession Number(s): [id number] cc: Roel Garber D.O.; Loreto Mcneal NP Patient Name: KARMA WHITEHEAD MR#: [id number] : 1980 Exam Date: 05/27/2024 Ordering Doctor: [...] Treatments None Family Cancers None LOCATION: The [facility] BREAST COMPOSITION: There are scattered areas [...] Signed By: 05/27/24 1649 DD/ 47 TD/TT: Operating Room Surgical Technologist: [facility] Radiology Study observation (narrative) [facility] MM TOMOSYNTHESIS SCREENING B IOrdered By: Radiologist Radiology on 05-27-2024 [facility] Work Phone: Urinalysis macro (dipstick) panel (U)on 05-26-2024 Bilirubin, UA Negative Negative - 4(70) +++ mg/dL [facility] Blood, UA Negative Negative - 50 Donta/mcL [facility] Clarity, UA Clear [facility] Color, UA Yellow [facility] Glucose, UA Positive Negative - 1999(110) ++++ mg/dL [facility] Comment on above: 500 Interpretation and review of laboratory results Abnormal [facility] Ketones, UA Negative Negative - 160(16) ++++ mg/dL [facility] Leukocytes, UA Negative Negative - 500+++ Quique/mcL [facility] Nitrite, UA Negative Negative - Positive [facility] pH, UA 6 5 - 9 [facility] Protein, UA Negative Negative - 2000(20) ++++ mg/dL [facility] Spec Grav, UA 1.01 1 - 1.03 [facility] Urobilinogen, UA 0.2 0.2 - 12 mg/dL [facility] MLR HEMOGLOBIN A1Con 025 Glucose [Mass/Vol] 123 mg/dL [facility] HbA1c (Bld) [Mass fraction] 5.9 % 4.5 - 6.2 % [facility] Comment on above: ADA RECOMMENDED LIMI T 4.0 - 6.0 ADA THERAPEUTIC TARGET < 7.0 ACTION SUGGESTED > 7.0 [facility] Glucose (Bld) [Mass/Vol]on 0 04-07-2024 Glucose Blood, POC 115 mg/dL [facility] Laboratory - Hematology and Cell countson 04-07-2024 HbA1c (Bld) [Mass fraction] 5.8 % [facility] No Panel Informationon 04-07 Interpretation and review of laboratory results Normal [facility] Strep A Culture Onlyon 03-09 Strep A Culture Only No Group A Beta Streptococcus Isolated 2 Days PERFORMED BY: [place] [address] PATHOLOGIST ASSISTANT PROFESSOR OF DIETETICS DALIA SEARS M.D. Normal The [facility] Comment on above: Performed By: #### C USTA #### [address] Streptococcus pyogenes cultu reOrdered By: Mio Marroquin on 03-09-2024 S. pyogenes Org specific cx Ql (Unsp spec) Streptococcus pyogenes culture [facility] CBC with Auto Differentialon 01-13-2024 Basophils (Bld) [#/Vol] 0.06 10*3/uL [facility] Basophils/100 WBC (Bld) 0 % 0 - 2 % [facility] Eosinophils (Bld) [#/Vol] 0.10 10*3/uL [facility] Eosinophils/100 WBC (Bld) 1 % 1 - 4 % [facility] Erythrocyte distribution width (RBC) [Ratio] 13.6 % 11.8 - 14.4 % [facility] Hematocrit (Bld) [Volume fraction] 43.3 % 36.3 - 47.1 % [facility] Hemoglobin (Bld) [Mass/Vol] 14.0 g/dL 11.9 - 15.1 g/dL [facility] Immature granulocytes (Bld) [#/Vol] 0.10 10*3/uL [facility] Immature granulocytes/100 WBC (Bld) 1 % High 0 [facility] Interpretation and review of laboratory results Abnormal [facility] Lymphocytes/100 WBC (Bld) 22 % Low 24 - 43 % [facility] Lymphocytes/100 WBC (Bld) 2.98 % [facility] MCH (RBC) [Entitic mass] 28.5 pg 25.2 - 33.5 pg [facility] MCHC (RBC) [Mass/Vol] 32.3 g/dL 28.4 - 34.8 g/dL [facility] MCV (RBC) [Entitic vol] 88.2 fL 82.6 - 102.9 fL [facility] Monocytes/100 WBC (Bld) 8 % 3 - 12 % [facility] Monocytes/100 WBC (Bld) 1.12 % [facility] Neutrophils/100 WBC (Bld) 68 % High 36 - 65 % [facility] Nucleated RBC/100 WBC (Bld) [Ratio] 0.0 % 0.0 per 100 WBC [facility] Platelet mean volume (Bld) [Entitic vol] 10.0 fL 8.1 - 13.5 fL [facility] Platelets (Bld) [#/Vol] 452 10*3/uL [facility] RBC (Bld) [#/Vol] 4.91 10*6/uL 3.95 - 5.1 1 m/uL [facility] Segmented neutrophils/100 WBC (Bld) 9.08 % High [facility] WBC other (Bld) [#/Vol] 13.4 High [facility] CBC with Diffon 01-13-2024 Abs. Basophil 0.06 k/uL Normal 0.00-0.20 [facility] Comment on above: Performed By: #### C DP, CP #### [facility] [address] [place] [address] [place] [address] Experience Specialist: Domenica Velázquez MD Abs.Imm.Granulocyte 0.10 k/uL Normal 0.00-0.30 [facility] Comment on above: Performed By: #### C DP, CP #### [address] [place], [facility] [address] Experience Specialist: Domenica Velázquez MD Abs.Neutrophil (Seg) 9.08 k/uL High 1.50-8.10 [facility] Comment on above: Performed By: #### C DP, CP #### [address] [place], [place] [id number] Experience Specialist: Domenica Velázquez MD Basophils/100 WBC (Bld) 0 % Normal 0-2 [facility] Comment on above: Performed By: #### C DP, CP #### [address] [place], [place] [id number] Experience Specialist: Domenica Velázquez MD Eosinophils (Bld) [#/Vol] 0.10 10*3/uL Normal 0.00-0.44 [facility] Comment on above: Performed By: #### C DP, CP #### [address] [place], [place] [address] Experience Specialist: Domenica Velázquez MD Eosinophils/100 WBC (Bld) 1 % Normal 1-4 [facility] Comment on above: Performed By: #### C DP, CP #### [facility] [address] [place], [place] [address] Experience Specialist: Domenica Velázquez MD Erythrocyte distribution width (RBC) [Ratio] 13.6 % Normal 11.8-14.4 [facility] Comment on above: Performed By: #### C DP, CP #### [facility] [address] [place], [place] [address] Experience Specialist: Domenica Velázquez MD Hematocrit (Bld) [Volume fraction] 43.3 % Normal 36.3-47.1 [facility] Comment on above: Performed By: #### C DP, CP #### [address] [place] [address] Experience Specialist: Domenica Velázquez MD Hemoglobin (Bld) [Mass/Vol] 14.0 g/dL Normal 11.9-15.1 [facility] Comment on above: Performed By: #### C DP, CP #### [facility] [address] [place], [place] [address] Experience Specialist: Domenica Velázquez MD Immature granulocytes/100 WBC (Bld) 1 % High 0 [facility] Comment on above: Performed By: #### C DP, CP #### [facility] [address] [place], [place] [address] Experience Specialist: Domenica Velázquez MD Lymphocytes (Bld) [#/Vol] 2.98 10*3/uL Normal 1.10-3.70 [facility] Comment on above: Performed By: #### C DP, CP #### [facility] [address] [place], [facility] [address] Experience Specialist: Domenica Velázquez MD Lymphocytes/100 WBC (Bld) 22 % Low 24-43 [facility] Comment on above: Performed By: #### C DP, CP #### [facility] [address] [place] [address] Experience Specialist: Domenica Velázquez MD MCH (RBC) [Entitic mass] 28.5 pg Normal 25.2-33.5 [facility] Comment on above: Performed By: #### C DP, CP #### [address] [place], [facility] [address] Experience Specialist: Domenica Velázquez MD MCHC (RBC) [Mass/Vol] 32.3 g/dL Normal 28.4-34.8 [facility] Comment on above: Performed By: #### C DP, CP #### [address] [place] [address] Experience Specialist: Domenica Velázquez MD MCV (RBC) [Entitic vol] 88.2 fL Normal 82.6-102.9 [facility] Comment on above: Performed By: #### C DP, CP #### [address] [place], [facility] [address] Experience Specialist: Domenica Velázquez MD Monocytes (Bld) [#/Vol] 1.12 10*3/uL Normal 0.10-1.20 [facility] Comment on above: Performed By: #### C DP, CP #### [address] [place], [facility] [address] Experience Specialist: Domenica Velázquez MD Monocytes/100 WBC (Bld) 8 % Normal 3-12 [facility] Comment on above: Performed By: #### C DP, CP #### [address] [place], [facility] [address] Experience Specialist: Domenica Velázquez MD Neutrophil (Seg) 68 % High 36-65 [facility] Comment on above: Performed By: #### C DP, CP #### [facility] [address] [place] [address] Dr. [place], [facility] [address] Experience Specialist: Domenica Velázquez MD NRBC Automated 0.0 per 100 WBC Normal 0.0 [facility] Comment on above: Performed By: #### C MANUELA, CP #### [facility] [address] [place], [place] [id number] Experience Specialist: Domenica Velázquez MD Platelet mean volume (Bld) [Entitic vol] 10.0 fL Normal 8.1-13.5 [facility] Comment on above: Performed By: #### C DP, CP #### [facility] [address] [place], [place] [id number] Experience Specialist: Domenica Velázquez MD Platelets (Bld) [#/Vol] 452 10*3/uL Normal 138-453 [facility] Comment on above: Performed By: #### C MANUELA, CP #### [facility] [address] [place] [address] Experience Specialist: Domenica Velázquez MD RBC (Bld) [#/Vol] 4.91 10*6/uL Normal 3.95-5.11 [facility] Comment on above: Performed By: #### C MANUELA, CP #### [facility] [address] [place], [place] [id number] Experience Specialist: Domenica Velázquez MD WBC (Bld) [#/Vol] 13.4 10*3/uL High 3.5-11.3 [facility] Comment on above: Performed By: #### C DP, CP #### [facility] [address] [place] [address] Experience Specialist: Domenica Velázquez MD [facility] Albumin [Mass/Vol] 4.4 g/dL 3.5 - 5.2 g/dL [facility] Albumin/Globulin [Mass ratio] 1.3 {ratio} 1.0 - 2.5 [facility] ALP [Catalytic activity/Vol] 87 U/L 35 - 104 U/L [facility] ALT [Catalytic activity/Vol] 25 U/L 10 - 35 U/L [facility] Anion gap [Moles/Vol] 11 mmol/L 9 - 16 mmol/L [facility] AST [Catalytic activity/Vol] 17 U/L 10 - 35 U/L [facility] Bilirubin [Mass/Vol] mg/dL 0.00 - 1.20 mg/dL [facility] Calcium [Mass/Vol] 9.9 mg/dL 8.6 - 10. 4 mg/dL [facility] Chloride [Moles/Vol] 101 mmol/L 98 - 107 mmol/L [facility] CO2 [Moles/Vol] 25 mmol/L 20 - 31 mmol/L [facility] Creatinine [Mass/Vol] 0.7 mg/dL 0.50 - 0.90 mg/dL [facility] EstEmily Rate - PINF [facility] Comment on above: These results [...] 112 mg/dL High 74 - 99 mg/dL [facility] Interpretation and review of laboratory results Abnormal [facility] Potassium [Moles/Vol] 4.2 mmol/L 3.7 - 5.3 mmol/L [facility] Protein [Mass/Vol] 7.8 g/dL 6.6 - 8.7 g/dL [facility] Sodium [Moles/Vol] 137 mmol/L 136 - 145 mmol/L [facility] Urea nitrogen [Mass/Vol] 24 mg/dL High 6 - 20 mg/dL [facility] Urea nitrogen/Creatinine [Mass ratio] 34 mg/mg High 9 - 20 [facility] Comp Metabolic Profon 2023 Albumin [Mass/Vol] 4.4 g/dL Normal 3.5-5.2 [facility] Comment on above: Performed By: #### C DP, CP #### [facility] [address] [place], [place] [id number] Experience Specialist: Domenica Velázquez MD Albumin/Glob Ratio 1.3 Normal 1.0-2.5 [facility] Comment on above: Performed By: #### C DP, CP #### [facility] [address] [place], [place] [id number] Experience Specialist: Domenica Velázquez MD Alkaline Phos 87 U/L Normal 35-104 [facility] Comment on above: Performed By: #### C DP, CP #### [facility] [address] [place], [place] [address] Experience Specialist: Domenica Velázquez MD ALT [Catalytic activity/Vol] 25 U/L Normal 10-35 [facility] Comment on above: Performed By: #### C DP, CP #### [facility] [address] [place] [address] Experience Specialist: Domenica Velázquez MD Anion gap [Moles/Vol] 11 mmol/L Normal 9-16 [facility] Comment on above: Performed By: #### C DP, CP #### [facility] [address] [place] [address] Experience Specialist: Domenica Velázquez MD AST [Catalytic activity/Vol] 17 U/L Normal 10-35 [facility] Comment on above: Performed By: #### C DP, CP #### [facility] [address] [place], [place] [address]83 Experience Specialist: Domenica Velázquez MD Bilirubin [Mass/Vol] mg/dL Normal 0.00-1.20 [facility] Comment on above: Performed By: #### C DP, CP #### [facility] [address] [place], [place] [id number] Experience Specialist: Domenica Velázquez MD BUN/CRE Ratio 34 High 9-20 [facility] Comment on above: Performed By: #### C DP, CP #### [facility] [address] [place], [place] [address]83 Experience Specialist: Domenica Velázquez MD Calcium [Mass/Vol] 9.9 mg/dL Normal 8.6-10.4 [facility] Comment on above: Performed By: #### C DP, CP #### [facility] [address] [place], [place] [address]48483 Experience Specialist: Domenica Velázquez MD Chloride [Moles/Vol] 101 mmol/L Normal 98-107 [facility] Comment on above: Performed By: #### C DP, CP #### [facility] [address] [place], [place] [address] Experience Specialist: Domenica Velázquez MD CO2 [Moles/Vol] 25 mmol/L Normal 20-31 [facility] Comment on above: Performed By: #### C DP, CP #### [facility] [address] [place] [address] Experience Specialist: Domenica Velázquez MD Creatinine [Mass/Vol] 0.7 mg/dL Normal 0.50-0.90 [facility] Comment on above: Performed By: #### C DP, CP #### [facility] [address] [place], [place] [address]23383 Experience Specialist: Domenica Velázquez MD GFR/1.73 sq M.predicted among non-blacks MDRD (S/P/Bld) [Vol rate/Area] mL/min/{1.73_m2} Normal >60 [facility] Comment on above: Result Comment: These [...] Performed By: #### C DP, CP #### [facility] [address] [place] [address] Experience Specialist: Domenica Velázquez MD Glucose [Mass/Vol] 112 mg/dL High 74-99 [facility] Comment on above: Performed By: #### C DP, CP #### [facility] [address] [place] [address] Experience Specialist: Domenica Velázquez MD Potassium [Moles/Vol] 4.2 mmol/L Normal 3.7-5.3 [facility] Comment on above: Performed By: #### C DP, CP #### [address] [place] [address] Experience Specialist: Domenica Velázquez MD Protein [Mass/Vol] 7.8 g/dL Normal 6.6-8.7 [facility] Comment on above: Performed By: #### C DP, CP #### [address] [place] [address] Experience Specialist: Domenica Velázquez MD Sodium [Moles/Vol] 137 mmol/L Normal 136-145 [facility] Comment on above: Performed By: #### C DP, CP #### [facility] [address] [place] [address] Dr. [place], [facility] [address] [address] Experience Specialist: Domenica Velázquez MD Urea nitrogen [Mass/Vol] 24 mg/dL High 6-20 [facility] Comment on above: Performed By: #### C DP, CP #### [facility] [address] [place] [address] Experience Specialist: Domenica Velázquez MD Microscopic Urinalysison Bacteria LM Ql (Urine sed) 1+ Abnormal None [facility] Epithelial cells LM.HPF (Urine sed) [#/Area] 0 TO 2 [facility] Interpretation and review of laboratory results Abnormal [facility] Mucus Ql (Urine sed) TRACE Abnormal None [facility] RBC LM.HPF (Urine sed) [#/Area] 0 TO 2 [facility] WBC LM.HPF (Urine sed) [#/Area] None [facility] TSHon 01-13-2024 TSH Qn 1.57 m[IU]/L [facility] Thyroid Stim. Horm.on 2023 Thyroid Stim. Horm. 1.57 uIU/mL Normal 0.27-4.[address] [facility] Comment on above: Performed By: #### T SH #### [facility] [address] [place] [address] Experience Specialist: Domenica Velázquez MD UA w/Reflex Cultureon 2023 Bilirubin, SemiQt,Ur Negative Normal NEG [facility] Comment on above: Performed By: #### L IVP #### [facility] [address] [place] [address] Experience Specialist: Domenica Velázquez MD Blood, Urine Negative Normal NEG [facility] Comment on above: Performed By: #### L IVP #### [facility] [address] [place] [address] Experience Specialist: Domenica Velázquez MD Clarity (U) Clear Normal CLEAR [facility] Comment on above: Performed By: #### L IVP #### [facility] [address] [place] [address] Experience Specialist: Domenica Velázquez MD Color (U) Yellow Normal YEL [facility] Comment on above: Performed By: #### L IVP #### [facility] [address] [place] [address] Experience Specialist: Domenica Velázquez MD Glucose Ql (U) 3+ mg/dL Abnormal NEG [facility] Comment on above: Performed By: #### L IVP #### [facility] [address] [place] [address] [place], [place] [id number] Experience Specialist: Domenica Velázquez MD Ketones Ql (U) Negative Normal NEG [facility] Comment on above: Performed By: #### L IVP #### [facility] [address] [place] [address] [place], [place] [id number] Experience Specialist: Domenica Velázquez MD Leukocyte esterase Test strip Ql (U) Negative Normal NEG [facility] Comment on above: Performed By: #### L IVP #### [address] [place], [place] [id number] Experience Specialist: Domenica Velázquez MD Nitrite,Ur Negative Normal NEG [facility] Comment on above: Performed By: #### L IVP #### [address] [place], [facility] [address] Experience Specialist: Domenica Velázquez MD PH,Ur 6.0 Normal 5.0-9.0 [facility] Comment on above: Performed By: #### L IVP #### [address] [place] [id number] Experience Specialist: Domenica Velázquez MD Protein Ql (U) Negative Normal NEG [facility] Comment on above: Performed By: #### L IVP #### [facility] [address] [place] [address] Dr. [place], [facility] [address] [address] Experience Specialist: Domenica Velázquez MD Spec. [place],Ur >1.030 High 1.010-1.020 [facility] Comment on above: Performed By: #### L IVP #### [address] [place], [place] [address]83 Experience Specialist: Domenica Velázquez MD Urobilinogen,Ur Normal Normal 0.0-1.0 [facility] Comment on above: Performed By: #### L IVP #### [facility] [address] [place] [address] [place] [address] Experience Specialist: Domenica Velázquez MD Urinalysis with Reflex to Cu ltureon 01-13-2024 Bilirubin Ql (U) Negative [facility]IVE [facility] Clarity (U) Clear Clear [facility] Color (U) Yellow Yellow [facility] Glucose Test strip (U) [Mass/Vol] 3+ Abnormal NEGATIVE mg/dL [facility] Hemoglobin Auto test strip Ql (U) Negative NEGATIVE [facility] Interpretation and review of laboratory results Abnormal [facility] Ketones (U) [Mass/Vol] Negative NEGATIVE mg/dL [facility] Leukocyte esterase Test strip Ql (U) Negative NEGATIVE [facility] Nitrite Ql (U) Negative NEGATIVE [place] [facility] pH (U) 6.0 [pH] 5.0 - 9.0 [facility] Protein (U) [Mass/Vol] Negative NEGATIVE mg/dL [facility] Specific gravity (U) [Rel density] High 1.010 - 1.020 [facility] Urobilinogen Qn (U) Normal 0.0 - 1. 0 EU/dL [facility] Urinalysis,Microon 4 Bacteria 1+ Abnormal [facility] Comment on above: Performed By: #### L IVP #### [facility] [address] [place] [address] Experience Specialist: Domenica Velázquez MD Epithelial cells LM Ql (Urine sed) 0 TO 2 Normal 0-25 [facility] Comment on above: Performed By: #### L IVP #### [facility] [address] [place] [address] Experience Specialist: Domenica Velázquez MD Mucus Strands TRACE Abnormal [facility] Comment on above: Performed By: #### L IVP #### [facility] [address] [place] [address] Experience Specialist: Domenica Velázquez MD Urine RBC's 0 TO 2 Normal 0-2 [facility] Comment on above: Performed By: #### L IVP #### [facility] [address] [place], [place] [address] Experience Specialist: Domenica Velázquez MD Urine WBC's None Normal 0-5 [facility] Comment on above: Performed By: #### L IVP #### [facility] [address] [place], [place] [id number] Experience Specialist: Domenica Velázquez MD BASIC METABOLIC PANLon 12-20 Anion gap [Moles/Vol] 10 mmol/L Normal 5-15 [facility] Comment on above: Performed By: #### C BCA, BMP, FEPR, 2276-4 #### [facility] ([id number]) [address], [address] [place] [address] Calcium [Mass/Vol] 8.9 mg/dL Normal 8.5-10.5 [facility] Comment on above: Performed By: #### C BCA, BMP, FEPR, 6-4 #### [facility] ([id number]) [address], [address] [place] [address] Chloride [Moles/Vol] 106 mmol/L Normal 98-109 [facility] Comment on above: Performed By: #### C BCA, BMP, FEPR, 2276-4 #### [facility] ([id number]) [address], [address] [place] [address] CO2 [Moles/Vol] 22 mmol/L Normal 22-32 [facility] Comment on above: Performed By: #### C BCA, BMP, FEPR, 2276-4 #### [facility] ([id number]) [address], [address] [place] [address] Creatinine [Mass/Vol] 0.70 mg/dL Normal 0.40-1.00 [facility] Comment on above: Result Comment: METH OD TRACEABLE TO IDMS STANDARD Performed By: #### C BCA, BMP, FEPR, 6-4 #### [facility] ([id number]) [address] [address] [place] [address] eGFR (CKD-EPI) NON-RACE DEPENDENT >90 Normal >59 [facility] Comment on above: Result Comment: Reported eGFR is based on the CKD-EPI 2020 equation that does not use a race coefficient. Performed By: #### C BCA, BMP, FEPR, 6-4 #### [facility] ([id number]) [address] [address] [place] [address] Glucose [Mass/Vol] 89 mg/dL Normal 65-99 [facility] Comment on above: Performed By: #### C BCA, BMP, FEPR, 2275-4 #### [facility] ([id number]) [address] [address] Potassium [Moles/Vol] 4.2 mmol/L Normal 3.5-5.0 [facility] Comment on above: Performed By: #### C BCA, BMP, FEPR, 6-4 #### [facility] ([id number]) [address] [address] Sodium [Moles/Vol] 138 mmol/L Normal 134-146 [facility] Comment on above: Performed By: #### C BCA, BMP, FEPR, 6-4 #### [facility] ([id number]) [address] [address] [place] [address] Urea nitrogen [Mass/Vol] 18 mg/dL Normal 5-23 [facility] Comment on above: Performed By: #### C BCA, BMP, FEPR, 6-4 #### [facility] ([id number]) [address] [address] CBC AND AUTO DIFFon 10-21-20 24 ABSOLUTE BASOPHIL 0.0 X10E9/L Normal 0.0-0.2 [facility] Comment on above: Performed By: #### C BCA, BMP, FEPR, 2275-4 #### [facility] ([id number]) [address] [address] [place] [address] ABSOLUTE NEUTROPHIL 5.7 X10E9/L Normal 1.5-6.6 [facility] Comment on above: Performed By: #### C BCA, BMP, FEPR, 2275- #### [facility] ([id number]) [address], [facility] [address] [place] [address] Basophils/100 WBC (Bld) 0.4 % Normal [facility] Comment on above: Performed By: #### C BCA, BMP, FEPR, 2275- #### [facility] ([id number]) [address], [facility] [address] [place] [address] Eosinophils (Bld) [#/Vol] 0.1 10*3/uL Normal 0.0-0.4 [facility] Comment on above: Performed By: #### C BCA, BMP, FEPR, 2275-06 #### [facility] ([id number]) [address] [address] [place] [address] Eosinophils/100 WBC (Bld) 1.2 % Normal [facility] Comment on above: Performed By: #### C BCA, BMP, FEPR, 2275-06 #### [facility] ([id number]) [address] [address] [place] [address] Erythrocyte distribution width (RBC) [Ratio] 14.4 % Normal 11.5-15.0 [facility] Comment on above: Performed By: #### C BCA, BMP, FEPR, 2275- #### [facility] ([id number]) [address], [address] [place] [address] Hematocrit (Bld) [Volume fraction] 37.4 % Normal 35-47 [facility] Comment on above: Performed By: #### C BCA, BMP, FEPR, 2275-4 #### [facility] ([id number]) [address] [address] [place] [address] Hemoglobin (Bld) [Mass/Vol] 12.4 g/dL Normal 11.7-15.5 [facility] Comment on above: Performed By: #### C BCA, BMP, FEPR, 2275-4 #### [facility] ([id number]) [address] [address] [place] [address] Lymphocytes (Bld) [#/Vol] 2.4 10*3/uL Normal 1.0-3.5 [facility] Comment on above: Performed By: #### C BCA, BMP, FEPR, 2275-4 #### [facility] ([id number]) [address] [address] [place] [address] Lymphocytes/100 WBC (Bld) 28.1 % Normal [facility] Comment on above: Performed By: #### C BCA, BMP, FEPR, 2275-4 #### [facility] ([id number]) [address] [address] [place] [address] MCH (RBC) [Entitic mass] 28.8 pg Normal 27-34 [facility] Comment on above: Performed By: #### C BCA, BMP, FEPR, 2275-4 #### [facility] ([id number]) [address] [address] [place] [address] MCHC (RBC) [Mass/Vol] 33.1 g/dL Normal 32-36 [facility] Comment on above: Performed By: #### C BCA, BMP, FEPR, 2275-4 #### [facility] ([id number]) [address] [address] [place] [address] MCV (RBC) [Entitic vol] 87 fL Normal 80-100 [facility] Comment on above: Performed By: #### C BCA, BMP, FEPR, 2275-4 #### [facility] ([id number]) [address], [address] [place] [address] Monocytes (Bld) [#/Vol] 0.3 10*3/uL Normal 0-0.9 [facility] Comment on above: Performed By: #### C BCA, BMP, FEPR, 6-4 #### [facility] ([id number]) [address], [facility] [address] [place] [address] Monocytes/100 WBC (Bld) 3.0 % Normal [facility] Comment on above: Performed By: #### C BCA, BMP, FEPR, 2275-4 #### [facility] ([id number]) [address], [address] [place] [address] Neutrophils/100 WBC (Bld) 67.3 % Normal [facility] Comment on above: Performed By: #### C BCA, BMP, FEPR, 2275-4 #### [facility] ([id number]) [address], [address] [place] [address] Platelet mean volume (Bld) [Entitic vol] 8.8 fL Normal 7-12 [facility] Comment on above: Performed By: #### C BCA, BMP, FEPR, 2275-4 #### [facility] ([id number]) [address], [address] [place] [address] Platelets (Bld) [#/Vol] 325 10*3/uL Normal 150-450 [facility] Comment on above: Performed By: #### C BCA, BMP, FEPR, 6-4 #### [facility] ([id number]) [address], [address] [place] [address] RBC COUNT 4.31 X10E12/L Normal 3.80-5.20 [facility] Comment on above: Performed By: #### C BCA, BMP, FEPR, 6-4 #### [facility] ([id number]) [address] [address] [place] [address] WBC (Bld) [#/Vol] 8.4 10*3/uL Normal 4.0-11.0 [facility] Comment on above: Performed By: #### C BCA, BMP, FEPR, 6-4 #### [facility] ([id number]) [address], [address] [place] [address] FERRITINon 12-21-2023 Ferritin [Mass/Vol] 195 ng/mL Normal 11-307 [facility] Comment on above: Performed By: #### C BCA, CMP, 47855-1, TSHR #### [facility] ([id number]) [address], [address] [place] [address] IRON PROFILEon 12-21-2023 Iron [Mass/Vol] 53 ug/dL Normal 50-170 [facility] Comment on above: Performed By: #### C BCA, BMP, FEPR, 6-4 #### [facility] ([id number]) [address], [address] [place] [address] IRON BINDING 374 ug/dL Normal 250-425 [facility] Comment on above: Performed By: #### C BCA, BMP, FEPR, 6-4 #### [facility] ([id number]) [address], [address] [place] [address] IRON SATURATION 14 % SATURATION Low 15-50 [facility] Comment on above: Performed By: #### C BCA, BMP, FEPR, 6-4 #### [facility] ([id number]) [address], [address] [place] [address] CT ABDOMEN PELVIS W IV CONTR Dar [...] significant stool or gas noted. Evidence of [id number] diverticulosis of proximal sigmoid colon and descending colon without evidence of diverticulitis. No evidence of colitis. No pericolic inflammatory change. Pelvis: No abnormal fluid collection or inflammatory process in the pelvis. No pelvic mass or pathologic lymphadenopathy. Normal uterus. No adnexal mass. Peritoneum/Retroperitone um: No periaortic or mesenteric pathologic lymphadenopathy. No [...] Zoë Nicole MD 10/07/23 Final result Normal [facility] Comp Metabolic Profon 2023 Albumin [Mass/Vol] 4.1 g/dL Normal 3.5-5.2 [facility] Comment on above: Performed By: #### L IVP #### [facility] [address] [place] [address] [place] [address] Experience Specialist: Domenica Velázquez MD Albumin/Glob Ratio 1.4 Normal 1.0-2.5 [facility] Comment on above: Performed By: #### L IVP #### [facility] [address] [place] [address] Experience Specialist: Domenica Velázquez MD Alkaline Phos 85 U/L Normal 35-104 [facility] Comment on above: Performed By: #### L IVP #### [facility] [address] [place] [place] [address] Experience Specialist: Domenica Velázquez MD ALT [Catalytic activity/Vol] 12 U/L Normal 5-33 [facility] Comment on above: Performed By: #### L IVP #### [facility] [address] [place], [place] 336[address]83 Experience Specialist: Domenica Velázquez MD Anion gap [Moles/Vol] 11 mmol/L Normal 9-17 [facility] Comment on above: Performed By: #### L IVP #### [facility] [address] [place], [place] [address]83 Experience Specialist: Domenica Velázquez MD AST [Catalytic activity/Vol] 14 U/L Normal <32 [facility] Comment on above: Performed By: #### L IVP #### [facility] [address] [place], [place] [address] Experience Specialist: Domenica Velázquez MD Bilirubin [Mass/Vol] 0.2 mg/dL Low 0.3-1.2 [facility] Comment on above: Performed By: #### L IVP #### [facility] [address] [place], [place] [address] Experience Specialist: Domenica Velázquez MD BUN/CRE Ratio 30 High 9-20 [facility] Comment on above: Performed By: #### L IVP #### [facility] [address] [place] [address] [place], [place] 0995383 Experience Specialist: Domenica Velázquez MD Calcium [Mass/Vol] 8.8 mg/dL Normal 8.6-10.4 [facility] Comment on above: Performed By: #### L IVP #### [facility] [address] [place], [place] 3194183 Experience Specialist: Domenica Velázquez MD Chloride [Moles/Vol] 103 mmol/L Normal 98-107 [facility] Comment on above: Performed By: #### L IVP #### [facility] [address] [place], [place] 0266383 Experience Specialist: Domenica Velázquez MD CO2 [Moles/Vol] 25 mmol/L Normal 20-31 [facility] Comment on above: Performed By: #### L IVP #### [facility] [address] [place] [address] Experience Specialist: Domenica Velázquez MD Creatinine [Mass/Vol] 0.6 mg/dL Normal 0.5-0.9 [facility] Comment on above: Performed By: #### L IVP #### [facility] [address] [place] [address] Experience Specialist: Domenica Velázquez MD GFR/1.73 sq M.predicted among non-blacks MDRD (S/P/Bld) [Vol rate/Area] mL/min/{1.73_m2} Normal >60 [facility] Comment on above: Result Comment: These [...] secretion. Performed By: #### L IVP #### [facility] [address] [place] [address] Experience Specialist: Domenica Velázquez MD Glucose [Mass/Vol] 92 mg/dL Normal 70-99 [facility] Comment on above: Performed By: #### L IVP #### [facility] [address] [place] [address] Experience Specialist: Domenica Velázquez MD Potassium [Moles/Vol] 3.6 mmol/L Low 3.7-5.3 [facility] Comment on above: Performed By: #### L IVP #### [facility] [address] [place] [address] Experience Specialist: Domenica Velázquez MD Protein [Mass/Vol] 7.0 g/dL Normal 6.4-8.3 [facility] Comment on above: Performed By: #### L IVP #### [facility] [address] [place], [place] [address]136683 Experience Specialist: Domenica Velázquez MD Sodium [Moles/Vol] 139 mmol/L Normal 135-144 [facility] Comment on above: Performed By: #### L IVP #### [facility] [address] [place] [address]83 Experience Specialist: Domenica Velázquez MD Urea nitrogen [Mass/Vol] 18 mg/dL Normal 6-20 [facility] Comment on above: Performed By: #### L IVP #### [facility] [address] [place], [place] 198[address]83 Experience Specialist: Domenica Velázquez MD Lipaseon 10-07-2023 Lipase [Catalytic activity/Vol] 28 U/L Normal 13-60 [facility] Comment on above: Performed By: #### L IVP #### [facility] [address] [place], [place] 324[address]83 Experience Specialist: Domenica Velázquez MD Troponinon 10-07-2023 Troponin, High Sens <6 Normal 0-14 [facility] Comment on above: Result Comment: High Sensitivity Troponin values cannot be compared with other Troponin methodologies. Performed By: #### L IVP #### [facility] [address] [place] [address] [place] [place], [place] 8151583 Experience Specialist: Domenica Velázquez MD CBC with Diffon 10-06-2023 Abs. Basophil 0.03 k/uL Normal 0.00-0.20 [facility] Comment on above: Performed By: #### L IVP #### [facility] [address] [place] [address] Experience Specialist: Domenica Velázquez MD Abs.Imm.Granulocyte 0.03 k/uL Normal 0.00-0.30 [facility] Comment on above: Performed By: #### L IVP #### [facility] [address] [place], [place] [address]83 Experience Specialist: Domenica Velázquez MD Abs.Neutrophil (Seg) 6.50 k/uL Normal 1.50-8.10 [facility] Comment on above: Performed By: #### L IVP #### [address] [place], [place] 5160383 Experience Specialist: Domenica Velázquez MD Basophils/100 WBC (Bld) 0 % Normal 0-2 [facility] Comment on above: Performed By: #### L IVP #### [address] [place], [place] 4286383 Experience Specialist: Domenica Velázquez MD Eosinophils (Bld) [#/Vol] 0.08 10*3/uL Normal 0.00-0.44 [facility] Comment on above: Performed By: #### L IVP #### [address] [place], [facility] [address] Experience Specialist: Domenica Velázquez MD Eosinophils/100 WBC (Bld) 1 % Normal 1-4 [facility] Comment on above: Performed By: #### L IVP #### [address] [place], [place] 197[address]83 Experience Specialist: Domenica Velázquez MD Erythrocyte distribution width (RBC) [Ratio] 13.5 % Normal 11.8-14.4 [facility] Comment on above: Performed By: #### L IVP #### [address] [place], [facility] [address] [address] Experience Specialist: Domenica Velázquez MD Hematocrit (Bld) [Volume fraction] 40.1 % Normal 36.3-47.1 [facility] Comment on above: Performed By: #### L IVP #### [address] [place], [place] [address]3 Experience Specialist: Domenica Velázquez MD Hemoglobin (Bld) [Mass/Vol] 13.4 g/dL Normal 11.9-15.1 [facility] Comment on above: Performed By: #### L IVP #### [facility] [address] [place] [address] Experience Specialist: Domenica Velázquez MD Immature granulocytes/100 WBC (Bld) 0 % Normal 0 [facility] Comment on above: Performed By: #### L IVP #### [facility] [address] [place], [facility] [address] Experience Specialist: Domenica Velázquez MD Lymphocytes (Bld) [#/Vol] 2.41 10*3/uL Normal 1.10-3.70 [facility] Comment on above: Performed By: #### L IVP #### [address] [place], [facility] [address] Experience Specialist: Domenica Velázquez MD Lymphocytes/100 WBC (Bld) 25 % Normal 24-43 [facility] Comment on above: Performed By: #### L IVP #### [address] [place], [facility] [address] Experience Specialist: Domenica Velázquez MD MCH (RBC) [Entitic mass] 28.6 pg Normal 25.2-33.5 [facility] Comment on above: Performed By: #### L IVP #### [address] [place], [facility] [address] Experience Specialist: Domenica Velázquez MD MCHC (RBC) [Mass/Vol] 33.4 g/dL Normal 28.4-34.8 [facility] Comment on above: Performed By: #### L IVP #### [address] [place] [address] Experience Specialist: Domenica Velázquez MD MCV (RBC) [Entitic vol] 85.7 fL Normal 82.6-102.9 [facility] Comment on above: Performed By: #### L IVP #### [facility] [address] [place], [place] [id number] Experience Specialist: Domenica Velázquez MD Monocytes (Bld) [#/Vol] 0.69 10*3/uL Normal 0.10-1.20 [facility] Comment on above: Performed By: #### L IVP #### [facility] [address] [place], [place] [address] Experience Specialist: Domenica Velázquez MD Monocytes/100 WBC (Bld) 7 % Normal 3-12 [facility] Comment on above: Performed By: #### L IVP #### [facility] [address] [place], [place] 174[address]83 Experience Specialist: Domenica Velázquez MD Neutrophil (Seg) 67 % High 36-65 [facility] Comment on above: Performed By: #### L IVP #### [facility] [address] [place], [place] 523[address]83 Experience Specialist: Domenica Velázquez MD NRBC Automated 0.0 per 100 WBC Normal 0.0 [facility] Comment on above: Performed By: #### L IVP #### [address] [place], [place] [address]83 Experience Specialist: Domenica Velázquez MD Platelet mean volume (Bld) [Entitic vol] 10.5 fL Normal 8.1-13.5 [facility] Comment on above: Performed By: #### L IVP #### [facility] [address] [place], [place] [id number] Experience Specialist: Domenica Velázquez MD Platelets (Bld) [#/Vol] 292 10*3/uL Normal 138-453 [facility] Comment on above: Performed By: #### L IVP #### [facility] [address] [place], [place] [address]12783 Experience Specialist: Domenica Velázquez MD RBC (Bld) [#/Vol] 4.68 10*6/uL Normal 3.95-5.11 [facility] Comment on above: Performed By: #### L IVP #### [facility] [address] [place], [place] [address]83 Experience Specialist: Domenica Velázquez MD WBC (Bld) [#/Vol] 9.7 10*3/uL Normal 3.5-11.3 [facility] Comment on above: Performed By: #### L IVP #### [facility] [address] [place], [place] 7676383 Experience Specialist: Domenica Velázquez MD Basic Metabolic Profon 10-04 Anion gap [Moles/Vol] 10 mmol/L Normal 9-17 [facility] Comment on above: Performed By: #### D BASIA, BMP, CDP, TROPI #### [address] [place], [place] 101[address]83 Experience Specialist: Domenica Velázquez MD BUN/CRE Ratio 23 High 9-20 [facility] Comment on above: Performed By: #### D BASIA, BMP, CDP, TROPI #### [address] [place], [place] 7549483 Experience Specialist: Domenica Velázquez MD Calcium [Mass/Vol] 8.9 mg/dL Normal 8.6-10.4 [facility] Comment on above: Performed By: #### D BASIA, BMP, CDP, TROPI #### [facility] [address] [place] [address] [place], [place] 498[address]83 Experience Specialist: Domenica Velázquez MD Chloride [Moles/Vol] 105 mmol/L Normal 98-107 [facility] Comment on above: Performed By: #### D BASIA, BMP, CDP, TROPI #### [facility] [address] [place] [address] [place] [address] Experience Specialist: Domenica Velázquez MD CO2 [Moles/Vol] 26 mmol/L Normal 20-31 [facility] Comment on above: Performed By: #### D BASIA, BMP, CDP, TROPI #### [facility] [address] [place] [address] Experience Specialist: Domenica Velázquez MD Creatinine [Mass/Vol] 0.6 mg/dL Normal 0.5-0.9 [facility] Comment on above: Performed By: #### D BASIA, BMP, CDP, TROPI #### [facility] [address] [place] [address] Experience Specialist: Domenica Velázquez MD GFR/1.73 sq M.predicted among non-blacks MDRD (S/P/Bld) [Vol rate/Area] mL/min/{1.73_m2} Normal >60 [facility] Comment on above: Result Comment: These [...] #### D BASIA, BMP, CDP, TROPI #### [facility] [address] [place] [address] Experience Specialist: Domenica Velázquez MD Glucose [Mass/Vol] 96 mg/dL Normal 70-99 [facility] Comment on above: Performed By: #### D BASIA, BMP, CDP, TROPI #### [facility] [address] [place] [address] Experience Specialist: Domenica Velázquez MD Potassium [Moles/Vol] 3.8 mmol/L Normal 3.7-5.3 [facility] Comment on above: Performed By: #### D BASIA, BMP, CDP, TROPI #### [facility] [address] [place], [place] [address] Experience Specialist: Domenica Velázquez MD Sodium [Moles/Vol] 141 mmol/L Normal 135-144 [facility] Comment on above: Performed By: #### D BASIA, BMP, CDP, TROPI #### [facility] [address] [place] [id number] Experience Specialist: Domenica Velázquez MD Urea nitrogen [Mass/Vol] 14 mg/dL Normal 6-20 [facility] Comment on above: Performed By: #### D BASIA, BMP, CDP, TROPI #### [facility] [address] [place], [place] 2477183 Experience Specialist: Domenica Velázquez MD CBC with Diffon 10-05-2023 Abs. Basophil <0.03 Normal 0.00-0.20 [facility] Comment on above: Performed By: #### D BASIA, BMP, CDP, TROPI #### [address] [place], [place] [address] Experience Specialist: Domenica Velázquez MD Abs.Imm.Granulocyte 0.03 k/uL Normal 0.00-0.30 [facility] Comment on above: Performed By: #### D BASIA, BMP, CDP, TROPI #### [address] [place], [place] [address] Experience Specialist: Domenica Velázquez MD Abs.Neutrophil (Seg) 5.10 k/uL Normal 1.50-8.10 [facility] Comment on above: Performed By: #### D BASIA, BMP, CDP, TROPI #### [address] [place], [place] [address] Experience Specialist: Domenica Velázquez MD Basophils/100 WBC (Bld) 0 % Normal 0-2 [facility] Comment on above: Performed By: #### D BASIA, BMP, CDP, TROPI #### [address] [place] [id number] Experience Specialist: Domenica Velázquez MD Eosinophils (Bld) [#/Vol] 0.11 10*3/uL Normal 0.00-0.44 [facility] Comment on above: Performed By: #### D BASIA, BMP, CDP, TROPI #### [address] [place], [facility] [address] Experience Specialist: Domenica Velázquez MD Eosinophils/100 WBC (Bld) 1 % Normal 1-4 [facility] Comment on above: Performed By: #### D BASIA, BMP, CDP, TROPI #### [address] [place], [facility] [address] Experience Specialist: Domenica Velázquez MD Erythrocyte distribution width (RBC) [Ratio] 13.5 % Normal 11.8-14.4 [facility] Comment on above: Performed By: #### D BASIA, BMP, CDP, TROPI #### [address] [place], [facility] [address] Experience Specialist: Domenica Velázquez MD Hematocrit (Bld) [Volume fraction] 42.6 % Normal 36.3-47.1 [facility] Comment on above: Performed By: #### D BASIA, BMP, CDP, TROPI #### [address] [place], [facility] [address] [address] Experience Specialist: Domenica Velázquez MD Hemoglobin (Bld) [Mass/Vol] 14.1 g/dL Normal 11.9-15.1 [facility] Comment on above: Performed By: #### D BASIA, BMP, CDP, TROPI #### [address] [place] [address] Experience Specialist: Domenica Velázquez MD Immature granulocytes/100 WBC (Bld) 0 % Normal 0 [facility] Comment on above: Performed By: #### D BASIA, BMP, CDP, TROPI #### [address] [place], [place] [address] Experience Specialist: Domenica Velázquez MD Lymphocytes (Bld) [#/Vol] 2.42 10*3/uL Normal 1.10-3.70 [facility] Comment on above: Performed By: #### D BASIA, BMP, CDP, TROPI #### [address] [place], [facility] [address] [address] Experience Specialist: Domenica Velázquez MD Lymphocytes/100 WBC (Bld) 30 % Normal 24-43 [facility] Comment on above: Performed By: #### D BASIA, BMP, CDP, TROPI #### [address] [place], [facility] [address] Experience Specialist: Domenica Velázquez MD MCH (RBC) [Entitic mass] 28.8 pg Normal 25.2-33.5 [facility] Comment on above: Performed By: #### mSiley BASIA, BMP, CDP, TROPI #### [address] [place], [facility] [address] [address] Experience Specialist: Domenica Velázquez MD MCHC (RBC) [Mass/Vol] 33.1 g/dL Normal 28.4-34.8 [facility] Comment on above: Performed By: #### Smiley BASIA, BMP, CDP, TROPI #### [address] [place], [facility] [address] ( Experience Specialist: Domenica Velázquez MD MCV (RBC) [Entitic vol] 87.1 fL Normal 82.6-102.9 [facility] Comment on above: Performed By: #### D BASIA, BMP, CDP, TROPI #### [address] [place] [address] Experience Specialist: Domenica Velázquez MD Monocytes (Bld) [#/Vol] 0.53 10*3/uL Normal 0.10-1.20 [facility] Comment on above: Performed By: #### D BASIA, BMP, CDP, TROPI #### [address] [place], [place] [address]83 Experience Specialist: Domenica Velázquez MD Monocytes/100 WBC (Bld) 7 % Normal 3-12 [facility] Comment on above: Performed By: #### D BASIA, BMP, CDP, TROPI #### [address] [place], [place] [address] Experience Specialist: Domenica Velázquez MD Neutrophil (Seg) 62 % Normal 36-65 [facility] Comment on above: Performed By: #### D BASIA, BMP, CDP, TROPI #### [address] [place], [facility] [address] Experience Specialist: Domenica Velázquez MD NRBC Automated 0.0 per 100 WBC Normal 0.0 [facility] Comment on above: Performed By: #### D BASIA, BMP, CDP, TROPI #### [address] [place], [facility] Experience Specialist: Domenica Velázquez MD Platelet mean volume (Bld) [Entitic vol] 10.9 fL Normal 8.1-13.5 [facility] Comment on above: Performed By: #### Smiley BASIA, BMP, CDP, TROPI #### [address] [place], [place] [address] Experience Specialist: Domenica Velázquez MD Platelets (Bld) [#/Vol] 296 10*3/uL Normal 138-453 [facility] Comment on above: Performed By: #### D BASIA, BMP, CDP, TROPI #### [address] [place] [address] Experience Specialist: Domenica Velázquez MD RBC (Bld) [#/Vol] 4.89 10*6/uL Normal 3.95-5.11 [facility] Comment on above: Performed By: #### D BASIA, BMP, CDP, TROPI #### [facility] [address] [place] [address] Experience Specialist: Domenica Velázquez MD WBC (Bld) [#/Vol] 8.2 10*3/uL Normal 3.5-11.3 [facility] Comment on above: Performed By: #### D BASIA, BMP, CDP, TROPI #### [facility] [address] [place], [place] 114[address] Experience Specialist: Domenica Velázquez MD CT CHEST PULMONARY EMBOLISM [...] Fernando Marcelino MD 10/05/23 Final result Normal [facility] D-Dimer Teston 10-05-2023 D-Dimer Test 0.30 ug/mL FEU Normal 0.00-0.59 [facility] Comment on above: Result Comment: When [...] #### D BASIA, BMP, CDP, TROPI #### [facility] [address] [place] [address] [place] [address] Experience Specialist: Domenica Velázquez MD Liver Profileon 10-05-2023 Albumin [Mass/Vol] 4.4 g/dL Normal 3.5-5.2 [facility] Comment on above: Performed By: #### L IVP #### [facility] [address] [place] [address] Experience Specialist: Domenica Velázquez MD Albumin/Glob Ratio 1.4 Normal 1.0-2.5 [facility] Comment on above: Performed By: #### L IVP #### [facility] [address] [place] [address] Experience Specialist: Domenica Velázquez MD Alkaline Phos 99 U/L Normal 35-104 [facility] Comment on above: Performed By: #### L IVP #### [facility] [address] [place], [place] [address]83 Experience Specialist: Domenica Velázquez MD ALT [Catalytic activity/Vol] 13 U/L Normal 5-33 [facility] Comment on above: Performed By: #### L IVP #### [facility] [address] [place], [place] [address]83 Experience Specialist: Domenica Velázquez MD AST [Catalytic activity/Vol] 16 U/L Normal <32 [facility] Comment on above: Performed By: #### L IVP #### [facility] [address] [place], [place] [address]83 Experience Specialist: Domenica Velázquez MD Bilirubin [Mass/Vol] 0.2 mg/dL Low 0.3-1.2 [facility] Comment on above: Performed By: #### L IVP #### [facility] [address] [place] [address] Dr. [place], [place] [address] Experience Specialist: Domenica Velázquez MD Bilirubin, Indirect Can not be calculated Normal 0.0-1 .0 [facility] Comment on above: Performed By: #### L IVP #### [facility] [address] [place] [address] Dr. [place], [place] 8938783 Experience Specialist: Domenica Velázquez MD Bilirubin.indirect [Mass/Vol] mg/dL Normal <0.3 [facility] Comment on above: Performed By: #### L IVP #### [facility] [address] [place], [place] [address]83 Experience Specialist: Domenica Velázquez MD Protein [Mass/Vol] 7.5 g/dL Normal 6.4-8.3 [facility] Comment on above: Performed By: #### L IVP #### [facility] [address] [place], [place] 475[address]83 Experience Specialist: Domenica Velázquez MD Troponinon 08-05-2024 Troponin, High Sens <6 Normal 0-14 [facility] Comment on above: Result Comment: High Sensitivity Troponin values cannot be compared with other Troponin methodologies. Performed By: #### T ROPI #### [facility] [address] [place] [address] Experience Specialist: Domenica Velázquez MD Troponin, High Sens <6 Normal 0-14 [facility] Comment on above: Result Comment: High Sensitivity Troponin values cannot be compared with other Troponin methodologies. Performed By: #### D BASIA, BMP, CDP, TROPI #### [facility] [address] [place] [address] Experience Specialist: Domenica Velázquez MD XR CHEST PORTABLEon 10-05-19 [...] by: Deyanira Lock MD Signed by: Deyanira oLck MD 10/05/23 Final result Normal [facility] CT Cervical spine WO contras ton 04-20-2023 Radiology Study observation (narrative) [facility] CT Head WO contraston 2023 Radiology Study observation (narrative) [facility] No Panel Informationon 04-20 No acute [...] abnormality identified in the cervical spine. [facility] No Panel InformationOrdered By: Andi Montoya on 04-20-2023 [facility] Work Phone: Glucose Glucometer (BldC) [M ass/Vol]on 03-27-2023 Glucose [Mass/Vol] 151 mg/dL High 65-99 [facility] CBC AND AUTO DIFFon 03-16-19 24 ABSOLUTE BASOPHIL 0.0 X10E9/L Normal 0.0-0.2 [facility] Comment on above: Performed By: #### C JAHAIRA BURGESS, 92792-2, TSHR #### [facility] ([id number]) [address] [place] [address] ABSOLUTE NEUTROPHIL 7.7 X10E9/L High 1.5-6.6 [facility] Comment on above: Performed By: #### C JAHAIRA BURGESS, 59014-8, TSHR #### [facility] ([id number]) [address], [address] [place] [address] Basophils/100 WBC (Bld) 0.3 % Normal [facility] Comment on above: Performed By: #### C JAHAIRA BURGESS, 80048-5, TSHR #### [facility] ([id number]) [address], [address] [place] [address] Eosinophils (Bld) [#/Vol] 0.1 10*3/uL Normal 0.0-0.4 [facility] Comment on above: Performed By: #### Terrell BURGESS CMP, 49863-9, TSHR #### [facility] ([id number]) [address], [address] [place] [address] Eosinophils/100 WBC (Bld) 1.1 % Normal [facility] Comment on above: Performed By: #### Terrell BURGESS CMP, 26475-8, TSHR #### [facility] ([id number]) [address] [address] [place] [address] Erythrocyte distribution width (RBC) [Ratio] 14.6 % Normal 11.5-15.0 [facility] Comment on above: Performed By: #### Terrell BURGESS CMP, 09060-5, TSHR #### [facility] ([id number]) [address], [facility] [address] [place] [address] Hematocrit (Bld) [Volume fraction] 45.7 % Normal 35-47 [facility] Comment on above: Performed By: #### Terrell BURGESS CMP, 48059-2, TSHR #### [facility] ([id number]) [address] [address] [place] [address] Hemoglobin (Bld) [Mass/Vol] 15.0 g/dL Normal 11.7-15.5 [facility] Comment on above: Performed By: #### C ADITYA CMP, 42154-3, TSHR #### [facility] ([id number]) [address] [address] [place] [address] Lymphocytes (Bld) [#/Vol] 2.4 10*3/uL Normal 1.0-3.5 [facility] Comment on above: Performed By: #### C ADITYA CMP, 39476-5, TSHR #### [facility] ([id number]) [address] [address] [place] [address] Lymphocytes/100 WBC (Bld) 22.1 % Normal [facility] Comment on above: Performed By: #### Terrell BURGESS CMP, 23270-9, TSHR #### [facility] ([id number]) [address] [address] MCH (RBC) [Entitic mass] 29.0 pg Normal 27-34 [facility] Comment on above: Performed By: #### Terrell BURGESS CMP, 27045-3, TSHR #### [facility] ([id number]) [address] [address] [place] [address] MCHC (RBC) [Mass/Vol] 32.8 g/dL Normal 32-36 [facility] Comment on above: Performed By: #### Terrell BURGESS CMP, 16201-9, TSHR #### [facility] ([id number]) [address] [address] [place] [address] MCV (RBC) [Entitic vol] 88 fL Normal 80-100 [facility] Comment on above: Performed By: #### Terrell BURGESS CMP, 80722-3, TSHR #### [facility] ([id number]) [address] [address] [place] [address] Monocytes (Bld) [#/Vol] 0.6 10*3/uL Normal 0-0.9 [facility] Comment on above: Performed By: #### Terrell BCA, CMP, 39352-3, TSHR #### [facility] ([id number]) [address], [address] [place] [address] Monocytes/100 WBC (Bld) 5.7 % Normal [facility] Comment on above: Performed By: #### C BCA, CMP, 94144-3, TSHR #### [facility] ([id number]) [address], [address] [place] [address] Neutrophils/100 WBC (Bld) 70.8 % Normal [facility] Comment on above: Performed By: #### C ADITYA, CMP, 66154-2, TSHR #### [facility] ([id number]) [address], [address] [place] [address] Platelet mean volume (Bld) [Entitic vol] 9.7 fL Normal 7-12 [facility] Comment on above: Performed By: #### Terrell BURGESS, CMP, 85783-4, TSHR #### [facility] ([id number]) [address], [address] [place] [address] Platelets (Bld) [#/Vol] 303 10*3/uL Normal 150-450 [facility] Comment on above: Performed By: #### C BCA, CMP, 09977-5, TSHR #### [facility] ([id number]) [address], [address] [place] [address] RBC COUNT 5.17 X10E12/L Normal 3.80-5.20 [facility] Comment on above: Performed By: #### C BCA, CMP, 32213-8, TSHR #### [facility] ([id number]) [address], [address] [place] [address] WBC (Bld) [#/Vol] 10.9 10*3/uL Normal 4.0-11.0 [facility] Comment on above: Performed By: #### Terrell BCA, CMP, 34037-2, TSHR #### [facility] ([id number]) [address], [address] [place] [address] COMPREHENSIVE METABOLIC PANE Dirk 03-16-2023 Albumin [Mass/Vol] 4.7 g/dL Normal 3.2-5.3 [facility] Comment on above: Performed By: #### C BCA, CMP, 48337-4, TSHR #### [facility] ([id number]) [address], [address] [place] [address] ALP [Catalytic activity/Vol] 74 U/L Normal 39-130 [facility] Comment on above: Performed By: #### C BCA, CMP, 44558-2, TSHR #### [facility] ([id number]) [address], [address] [place] [address] ALT [Catalytic activity/Vol] 22 U/L Normal 0-31 [facility] Comment on above: Performed By: #### C BCA, CMP, 85495-4, TSHR #### [facility] ([id number]) [address], [address] [place] [address] Anion gap [Moles/Vol] 12 mmol/L Normal 5-15 [facility] Comment on above: Performed By: #### C BCA, CMP, 59914-8, TSHR #### [facility] ([id number]) [address], [address] [place] [address] AST [Catalytic activity/Vol] 20 U/L Normal 0-41 [facility] Comment on above: Performed By: #### C BCA, CMP, 88322-5, TSHR #### [facility] ([id number]) [address], [address] [place] [address] Bilirubin [Mass/Vol] 0.5 mg/dL Normal 0.3-1.2 [facility] Comment on above: Performed By: #### C BCA, CMP, 50947-8, TSHR #### [facility] ([id number]) [address], [address] [place] [address] Calcium [Mass/Vol] 9.9 mg/dL Normal 8.5-10.5 [facility] Comment on above: Performed By: #### C JAHAIRA BURGESS, 33554-5, TSHR #### [facility] ([id number]) [address], [address] [place] [address] Chloride [Moles/Vol] 105 mmol/L Normal 98-109 [facility] Comment on above: Performed By: #### C JAHAIRA BURGESS, 90351-6, TSHR #### [facility] ([id number]) [address], [address] [place] [address] CO2 [Moles/Vol] 25 mmol/L Normal 22-32 [facility] Comment on above: Performed By: #### C JAHAIRA BURGESS, 91949-3, TSHR #### [facility] ([id number]) [address], [address] [place] [address] Creatinine [Mass/Vol] 0.74 mg/dL Normal 0.40-1.00 [facility] Comment on above: Result Comment: METH OD TRACEABLE TO IDMS STANDARD Performed By: #### C JAHAIAR BURGESS, 42505-5, TSHR #### [facility] ([id number]) [address], [address] [place] [address] eGFR (CKD-EPI) NON-RACE DEPENDENT >90 Normal >59 [facility] Comment on above: Result Comment: Reported eGFR is based on the CKD-EPI 2020 equation that does not use a race coefficient. Performed By: #### C JAHAIRA BURGESS, 79268-7, TSHR #### [facility] ([id number]) [address], [address] [place] [address] Glucose [Mass/Vol] 143 mg/dL High 65-99 [facility] Comment on above: Performed By: #### C JAHAIRA BURGESS, 15636-0, TSHR #### [facility] ([id number]) [address], [address] [place] [address] Potassium [Moles/Vol] 3.8 mmol/L Normal 3.5-5.0 [facility] Comment on above: Performed By: #### C ADITYA, CMP, 77603-2, TSHR #### [facility] ([id number]) [address], [address] [place] [address] Protein [Mass/Vol] 7.8 g/dL Normal 6.0-8.0 [facility] Comment on above: Performed By: #### C ADITYA, CMP, 35177-3, TSHR #### [facility] ([id number]) [address], [address] [place] [address] Sodium [Moles/Vol] 142 mmol/L Normal 134-146 [facility] Comment on above: Performed By: #### C ADITYA, JAHAIRA, 12692-6, TSHR #### [facility] ([id number]) [address], [address] [place] [address] Urea nitrogen [Mass/Vol] 17 mg/dL Normal 5-23 [facility] Comment on above: Performed By: #### Terrell BURGESS, CMP, 77393-0, TSHR #### [facility] ([id number]) [address], [address] [place] [address] HGB A1C (GLYCO-HGB)on 2023 Glucose [Mass/Vol] 117 mg/dL Normal [facility] Comment on above: Performed By: #### C ADITYA, CMP, 29541-0, TSHR #### [facility] ([id number]) [address], [address] [place] [address] HbA1c (Bld) [Mass fraction] 5.7 % High 4.4-5.6 [facility] Comment on above: Result Comment: NOTE ADA Guidelines Result HgbA1c Normal : less than 5.7 % Prediabetes : 5.7 % to 6.4 % Diabetes : > 6.4 % Use with caution in patients with abnormal hemoglobin variants as the half-life of red blood cells and in vivo glycation rates are affected. Performed By: #### Terrell BURGESS, JAHAIRA, 53391-1, TSHR #### [facility] ([id number]) [address], [address] [place] [address] Lipid 1996 panelon 4 Cholesterol [Mass/Vol] 132 mg/dL Low 150-200 [facility] Comment on above: Performed By: #### Terrell BURGESS, JAHAIRA, 87011-8, TSHR #### [facility] ([id number]) [address], [address] [place] [address] Cholesterol in HDL [Mass/Vol] 58 mg/dL Normal >39 [facility] Comment on above: Result Comment: HDL <40 mg/dL - High Risk HDL > or = 40mg/dL- Desirable HDL >60 mg/dL - Negative Risk Performed By: #### Terrell BURGESS, JAHAIRA, 92658-1, TSHR #### [facility] ([id number]) [address], [address] [place] [address] Cholesterol in LDL [Mass/Vol] 51 mg/dL Normal <130 [facility] Comment on above: Result Comment: LDL <100 mg/dL - Desirable LDL >160 mg/dL - High Risk Performed By: #### Terrell BURGESS, JAHAIRA, 54952-3, TSHR #### [facility] ([id number]) [address], [address] [place] [address] Cholesterol in VLDL [Mass/Vol] 23 mg/dL Normal 0-30 [facility] Comment on above: Performed By: #### C BCA, CMP, 32149-8, TSHR #### [facility] ([id number]) [address], [address] [place] [address] CHOLESTEROL:HDL 2.3 Normal 1.0-5.0 [facility] Comment on above: Performed By: #### C BCA, CMP, 56314-3, TSHR #### [facility] ([id number]) [address], [address] [place] [address] Triglyceride [Mass/Vol] 114 mg/dL Normal 27-150 [facility] Comment on above: Performed By: #### C BCA, CMP, 85323-4, TSHR #### [facility] ([id number]) [address], [address] [place] [address] MAMM SCREENING BILATERAL W C electrical panel builder 03-16-2023 MAMM SCREENING BILATERAL W CAD MAMM [...] 3:25 PM 0A a ADDITIONAL I Normal [facility] TSH WITH REFLEXon 03-16-2023 TSH 0.55 uIU/mL Normal 0.49-4.67 [facility] Comment on above: Performed By: #### C BCA, CMP, 96273-2, TSHR #### [facility] ([id number]) [address] [facility], [address] [place] [address] PT - Assessmentson 3 PT - Assessments [id number]#1.00C D:127 Normal [facility] ST - Assessmentson 3 ST - Assessments [id number]#1.00CD :127 Normal [facility] Consenton 09-25-2022 Consent [id number]#1.00CD :127 [facility] Outside Recordson 2022 Outside Records [id number]#1.00CD :[address] [facility] [address] - Orderson [address] ST - Orders [id number]#1.00CD :[address] [facility] [address] - Orders [id number]#1.00CD :[address] [facility] [address] - Otheron [address] ST - Other [id number]#1.00CD :127 [facility] PAP ACOG PANEL 2: 30 to 65on 05-27-2022 . . Normal [facility] Comment on above: Result Comment: Perf ormed at: WB Performed By: #### [id number] #### [facility] [address] [place] [address] Dr. Do Aguilar Age Gdln ACOG Testing 30-65 Normal [facility] Comment on above: Performed By: #### 4 [id number] #### [facility] [address] [place] [address] Dr. Do Aguilar DIAGNOSIS: Comment Normal [facility] Comment on above: Result Comment: NEGA TIVE FOR INTRAEPITHELIAL LESION OR MALIGNANCY. Performed at: WB Performed By: [id number] #### [facility] [address] [place] [address] Dr. Do Aguilar HPV Aptima Negative Normal Negative [facility] Comment on above: Result Comment: This nucleic acid amplification test detects fourteen high-risk HPV types (16,18,31,33,35,39,45,51,52,56,58,59,66,68) without differentiation. Performed at: =G Performed By: #### [id number] #### [facility] [address] [place] [address] Dr. Do Aguilar HPV Genotype Reflex Comment Normal [facility] Comment on above: Result Comment: Crit eria not met, HPV Genotype not performed. Performed at: WB Performed By: #### [id number] #### [facility] [address] [place] [address] Dr. Do Aguilar Methodology: Comment Normal [facility] Comment on above: Result Comment: This liquid based ThinPrep(R) pap test was screened with the use of an image guided system. Performed at: WB Performed By: #### [id number] #### [facility] [address] [place] [address] Dr. Do Aguilar Note: Comment Normal [facility] Comment on above: Result [...] Performed at: WB Performed By: #### [id number] #### [facility] [address] [place] [address] Dr. Do Aguilar Performed by: Comment Normal [facility] Comment on above: Result Comment: Melissa Ramachandran, Lease Analyst (ASCP) Performed at: WB Performed By: #### [id number] #### [facility] [address] [place] [address] Dr. Do Aguilar Specimen adequacy: Comment Normal [facility] Comment on above: Result Comment: Sati sfactory for evaluation. Endocervical and/or squamous metaplastic cells (endocervical component) are present. Performed at: WB Performed By: #### [id number] #### [facility] [address] [place] [address] Dr. Do Aguilar HEPATITIS C AB CASCADE TO QU ANT PCR GENOon 02-18-2022 HCV AB <0.1 Normal 0.0-0.9 [facility] Comment on above: Performed By: #### H EPCASC #### [facility] [address] [place] [address] Dr. Do Aguilar Interpretation: Comment Normal [facility] Comment on above: Result Comment: Nega tive Not infected with HCV, unless recent infection is suspected or other evidence exists to indicate HCV infection. Performed By: #### H EPCASC #### [facility] [address] [place] [address] Dr. Do Aguilar LIVER PROFILEon 02-17-2022 Albumin [Mass/Vol] 3.6 g/dL Normal 3.4-5.0 [facility] Comment on above: Performed By: #### L IVER #### [facility] [address] [place] [address] Dr. Do Aguilar Albumin/Globulin [Mass ratio] 0.9 {ratio} Normal [facility] Comment on above: Performed By: #### L IVER #### [facility] [address] [place] [address] Dr. Do Aguilar ALP [Catalytic activity/Vol] 79 U/L Normal 46-116 [facility] Comment on above: Performed By: #### L IVER #### [facility] [address] [place] [address] Dr. Do Aguilar ALT [Catalytic activity/Vol] 51 U/L Normal 14-59 [facility] Comment on above: Performed By: #### L IVER #### [facility] [address] [place] [address] Dr. Do Aguilar AST [Catalytic activity/Vol] 33 U/L Normal 15-37 [facility] Comment on above: Performed By: #### L IVER #### [facility] [address] [place] [address] Dr. Do Aguilar BILI, CONJUGATED 0.1 mg/dL Normal 0.0-0.2 [facility] Comment on above: Performed By: #### L IVER #### [facility] [address] [place] [address] Dr. Do Aguilar Bilirubin [Mass/Vol] 0.3 mg/dL Normal 0.2-1.0 [facility] Comment on above: Performed By: #### L IVER #### [facility] [address] [place] [address] Dr. Do Aguilar Globulin (S) [Mass/Vol] 4.2 g/dL Normal [facility] Comment on above: Performed By: #### L IVER #### [facility] [address] [place] [address] Dr. Do Aguilar Protein [Mass/Vol] 7.8 g/dL Normal 6.4-8.2 [facility] Comment on above: Performed By: #### L IVER #### [facility] [address] [place] [address] Dr. Do Aguilar TSHon 02-17-2022 TSH 0.457 uIU/mL Normal 0.358-3.740 [facility] Comment on above: Performed By: #### T SH #### [facility] [address] [place] [address] Dr. Do Aguilar VITAMIN B12on 02-17-2022 Cobalamin (Vitamin B12) [Mass/Vol] 1864.0 pg/mL Critically high 193.0-986.0 [facility] Comment on above: Performed By: #### V ITB12 #### [facility] [address] [address] [address] Do Aguilar History and Physicalon 12-04 History and Physical [id number]#1.00OTGT [facility] Operative Report - Surgeon/P godwin 12-04-2016 Operative Report - Surgeon/Physician [id number]#1.00OTGT [facility] Coding Summaryon 11-26-2016 Coding Summary CODING DATE: 017 [facility] STATUS: Home PAYOR: Medicaid HMO ADMIT DX: REASON FOR VISIT DX: R10.13 Epigastric pain R10.11 Right upper quadrant pain FINAL DX: PRINCIPAL: K29.70 Gastritis, unspecified, without bleeding SECONDARY: PROCEDURES DOCTOR NAME DATE 48655 Esophagogastroduodenosco Ted last Richard MD 11/21/2016 flexible, transoral; with biopsy, single or multiple NOTE: The code number assigned matches the documented diagnosis and / or procedure in the patient's chart. However, the narrative phrase printed from the coding software may appear abbreviated, or result in slightly different terminology. Coded By: Rosalba Laureano Date Saved: 11/26/2016 01:09 pm [facility] Consent Formson 11-24-2016 Consent Forms [id number]#1.00OTGT [facility] Intraoperative Noteon 2016 Intraoperative Note [id number]#1.00OTGT [facility] Intraoperative Note [id number]#1.00OTGTI [facility] Operative Report - Surgeon/P godwin 11-24-2016 [...] in two weeks.Juan Ramon Jean M.D.JOB #: [id number]: 11/21/2016T: 11/21/2016[Electronicall y Signed on: 12/03/2016 07:09 EDT] Juan Ramon Moore MD [employer] User for [id number][Verified on: 12/03/2016 07:09 EDT] Juan Ramon Moore MD[Transcribed on: 11/21/2016 11:37 EDT][facility] Telemetry Stripson 7 Telemetry Strips [id number]#1.00OTGT IFF Normal [facility] Telemetry Strips [id number]#1.00OTGT IFF Normal [facility] H. Pylori Gastricon 11-22-19 H. Pylori Rico Int Ctrl Pass Normal [facility] Comment on above: Order Comment: H. (A NTRUM) Result Comment: Pass Performed By: #### 2 [id number] ####[facility] (DEFAULT)[address] [place] [address] H. Pylori Gastric Negative Normal Negative [facility] Comment on above: Order Comment: H. (A NTRUM) Result Comment: Nega tive Performed By: #### 2 [id number] ####[facility] (DEFAULT)[address] [place] [address] Inpatient Clinical Summaryon 11-21-2016 Inpatient Clinical Summary [facility] SURGERYClinical Discharge SummaryPERSON INFORMATIONName ROSE SANDOVALKARMA CALDERON Age 36 Years 80Sex FEMALE Language Singaporean PCP HAZEL, DAVIDMarital Status [id number] Acct# Arrival 11/21/16 07:22:21Visit Reason EGD - EPIGASTRIC ABDOMINAL PAIN Acuity LOS 013 23:19Address:[address] [place] [id number]:PROVIDER INFORMATIONVITALS INFORMATIONVital Sign Triage LatestTemp OralTemp Temporal 36.4 DegC 36.4 DegCTemp IntravascularTemp AxillaryTemp Sdhiwl57 Sat 100 % 97 %Respiratory Rate 16 [...] INFORMATIONDischarge Disposition:Discharge Location:DEPART REASON INCOMPLETE INFORMATIONPATIENT EDUCATION INFORMATIONInstructions: Follow up:With: Address: When:Juan Ramon Fernandoraúl [address] [place] [address] [phone] [facility] (1) Within 2 to 4 weeksComments:Call for follow up appointmentWith: Address: When:DOMENICA VARGHESEMARK [address] [place] [phone] [facility] (1)DIAGNOSISAcute gastritisComment:PHYS DOC NOTES Normal [facility] Inpatient Patient Summaryon 11-21-2016 Inpatient Patient Summary [address] [id number] patient Discharge InstructionsName: KARMA SRDOB: [birth year] Address: [address] [place] [address] Care Provider:Name: DOMENICA OLIVAPhone: Discharge Diagnosis: Acute [...] decisions or sign any legal documents[facility] would like to thank you for allowing us to assist you with your healthcare needs. The following includes patient education materials and information regarding your injury/illness.ROSE BANEGAS KARMA has been given the following list of follow-up instructions, prescriptions, and patient education materials:Follow-up InstructionsWith: Address: When:Juan Ramon Jean [address] [place] [phone] [facility] () Within 2 to 4 weeksComments:Call for follow up appointmentWith: Address: When:DOMENICA VARGHESEMARK [facility] [place], [place] [phone] [facility] (1)MedicationsDuring the course of your [...] to relieve symptoms and feel better. Usual CauseIllnessVirusesBacte leonela Antibiotic NeededCold/Runny Nose NOBronchitis/Chest Cold (in otherwise healthy children and adults) NOWhooping Cough YesFlu NOStrep Throat YesSore Throat (except strep) NOFluid in the middle ear (otitis media with effusion) NOUrinary Tract Infection YesAntibiotics Aren?t Always the Answerwww.cdc.gov/getsma rt GET SMART Know When Antibiotics Eb[place] Department of Health and Human ServicesAv[facility] Health [facility] Hospitalers for Disease Control and Prevention October 2013 [facility] Rec ordon 11-21-2016 [facility] Endo Intraoperative Record [facility] Endo Intra-Op Record Summary Primary Physician: Juan Ramon Jean MD Finalized Date/Time: 11/21/16 08:37:38 Pt. Name: KARMA SR/Sex: 1980 FEMALE Med Rec #: [id number] Physician: Juan Ramon Jean MD Financial #: [id number] Pt. Type: D Room/Bed: / Admit/Disch: 11/21/16 [...] Jane RN Role Performed Surgeon - Primary Therapist Respiratory Therapist Respiratory Time In 11/21/16 08:06:00 11/21/16 08:06:00 11/21/16 08:06:00 Time Out 11/21/16 08:23:00 11/21/16 08:23:00 11/21/16 08:23:00 Procedure Esophagogastroduodenosco Esophagogastroduodenosco Esophagogastroduodenosco py py py Last Modified By: Robyn Castillo Debra L Barone, Debra L 11/21/16 08:23:47 11/21/16 08:23:47 11/21/16 08:23:47 Entry 4 Case Attendee Casi, Adela RN Role Performed Scrub Personnel Time In [...] 11/21/16 08:37 DBARONE Modify Pick List Normal [facility] MAGR Endo Postoperative Benjamin rdon 11-21-2016 [facility] Endo Postoperative Record [facility] Endo Phase II Record Summary Primary Physician: Juan Ramon Jean MD Finalized Date/Time: 11/21/16 10:02:07 Pt. Name: KARMA SR/Sex: 1980 FEMALE Med Rec #: [id number] Physician: Juan Ramon Jean MD Financial #: [id number] Pt. Type: D Room/Bed: / Admit/Disch: 11/21/16 07:22:21 - Institution: [facility] II Case Times EN MAGR Pre-Care [...] Cammy Barroso RN 11/21/16 10:02 [facility] MAGR Endo Preoperative Recor don 11-21-2016 MAG[facility] Endo Preoperative Record [facility] Endo Pre-Op Record Summary Primary Physician: Juan Ramon Jean MD Finalized Date/Time: 11/21/16 08:27:58 Pt. Name: KARMA SR /Sex: 1980 FEMALE Med Rec #: [id number] Physician: Juan Ramon Jean MD Financial #: [id number] Pt. Type: D Room/Bed: / Admit/Disch: 11/21/16 [...] Cammy Barroso RN 11/21/16 08:27 [facility] Test Urine 1on U Preg Negative [facility] Comment on above: Result Comment: Nega tive Performed By: #### [id number] ####[facility] (DEFAULT)[address] [place] [address] U Preg Internal Control Pass [facility] Comment on above: Result Comment: Pass Performed By: #### [id number] ####[facility] (DEFAULT)[address] [place] [address] Vital Signs Date Time Vital Sign Value Performing Clinician Facility 09-01-2024 10:52-0400 Body height 160 cm Mendez Flacoarianna DO Work Phone: [facility] 09-01-2024 10:52-0400 Body mass index (BMI) [Ratio] 40.74 kg/m2 Mendez Biedenlorrie DO Work Phone: [facility] 09-01-2024 10:52-0400 Body weight 104.33 kg Mendez Samedenlorrie DO Work Phone: [facility] 08-19-2024 13:17-0400 Body height 160 cm Mendez Samedmiranda DO Work Phone: [facility] 08-19-2024 13:17-0400 Body mass index (BMI) [Ratio] 40.74 kg/m2 Mendez Samedenlorrie DO Work Phone: [facility] 08-19-2024 13:17-0400 Body weight 104.33 kg Mendez Samedenlorrie DO Work Phone: [facility] 08-10-2024 12:13-0400 Diastolic blood pressure 73 mm[Hg] Loreto Mcneal MEDICAL DOSIMETRIST Work Phone: [facility] 08-10-2024 12:13-0400 Heart rate 97 /min Loreto Mcneal MEDICAL DOSIMETRIST Work Phone: [facility] 08-10-2024 12:13-0400 Respiratory rate 16 /min Loreto Mcneal MEDICAL DOSIMETRIST Work Phone: [facility] 08-10-2024 12:13-0400 SaO2% (BldA) [Mass fraction] 94 % Loreto Mcneal MEDICAL DOSIMETRIST Work Phone: [facility] 08-10-2024 12:13-0400 Systolic blood pressure 113 mm[Hg] Loreto Mcneal MEDICAL DOSIMETRIST Work Phone: [facility] 08-10-2024 10:50-0400 Body temperature 98 [degF] Loreto Mcneal MEDICAL DOSIMETRIST Work Phone: [facility] 08-10-2024 10:23-0400 Inhaled oxygen flow rate 8 L/min Loreto Mcneal MEDICAL DOSIMETRIST Work Phone: [facility] 08-10-2024 06:32-0400 Body height 160.02 cm Loreto Mcneal MEDICAL DOSIMETRIST Work Phone: [facility] 08-10-2024 06:32-0400 Body weight 106 kg Loreto Mcneal MEDICAL DOSIMETRIST Work Phone: [facility] 08-08-2024 13:24-0400 Body height 160.02 cm Loreto Mcneal MEDICAL DOSIMETRIST Work Phone: [facility] 08-08-2024 13:24-0400 Body mass index (BMI) [Ratio] 39.8 kg/m2 Loreto Mcneal MEDICAL DOSIMETRIST Work Phone: [facility] 08-08-2024 13:24-0400 Body weight 102.05 kg Loreto Mcneal MEDICAL DOSIMETRIST Work Phone: [facility] 08-04-2024 10:45-0400 Body height 160 cm Cleo Zambrano MD Work Phone: [facility] 08-04-2024 10:45-0400 Body mass index (BMI) [Ratio] 41.45 kg/m2 Cleo Zambrano MD Work Phone: [facility] 08-04-2024 10:45-0400 Body weight 106.14 kg Cleo Zambrano MD Work Phone: [facility] 08-04-2024 10:45-0400 Diastolic blood pressure 70 mm[Hg] Cleo Zambrano MD Work Phone: [facility] 08-04-2024 10:45-0400 Heart rate 87 /min Cleo Zambrano MD Work Phone: [facility] 08-04-2024 10:45-0400 Respiratory rate 16 /min Cleo Zamrbano MD Work Phone: [facility] 08-04-2024 10:45-0400 SaO2% (BldA) [Mass fraction] 97 % Cleo Zambrano MD Work Phone: [facility] 08-04-2024 10:45-0400 Systolic blood pressure 112 mm[Hg] Cleo Zambrano MD Work Phone: [facility] 08-02-2024 08:42-0400 Body mass index (BMI) [Ratio] 40.48 kg/m2 Roel Shirlene DO Work Phone: [facility] 08-02-2024 08:42-0400 Body weight 103.65 kg Roel Shirlene DO Work Phone: [facility] 08-02-2024 08:42-0400 Diastolic blood pressure 76 mm[Hg] Roel Shirlene DO Work Phone: [facility] 08-02-2024 08:42-0400 Systolic blood pressure 122 mm[Hg] Roel Shirlene Parsely Work Phone: [facility] 07-16-2024 11:06-0400 SaO2% (BldA) [Mass fraction] 93 % Loreto Fredis MEDICAL DOSIMETRIST - CROTCH BREAKER [facility] Phone[facility] 07-16-2024 11:01-0400 Body height 160 cm Loreto Fredis MEDICAL DOSIMETRIST - CROTCH BREAKER Work Phone: [facility] 07-16-2024 11:01-0400 Body mass index (BMI) [Ratio] 38.97 kg/m2 Loretomelecio Mcneal MEDICAL DOSIMETRIST - CROTCH BREAKER Work Phone: [facility] 07-16-2024 11:01-0400 Body temperature 97.5 [degF] Loretofer Mcneal MEDICAL DOSIMETRIST - CROTCH BREAKER Work Phone: [facility] 07-16-2024 11:01-0400 Body weight 99.79 kg Loreto Mcneal MEDICAL DOSIMETRIST - CROTCH BREAKER Work Phone: [facility] 07-16-2024 11:01-0400 Diastolic blood pressure 80 mm[Hg] Loreto Mcneal MEDICAL DOSIMETRIST - CROTCH BREAKER Work Phone: [facility] 07-16-2024 11:01-0400 Heart rate 100 /min Loreto Mcneal MEDICAL DOSIMETRIST - CROTCH BREAKER Work Phone: [facility] 07-16-2024 11:01-0400 Respiratory rate 16 /min Loreto Mcneal MEDICAL DOSIMETRIST - CROTCH BREAKER Work Phone: [facility] 07-16-2024 11:01-0400 Systolic blood pressure 145 mm[Hg] Loreto Mcneal MEDICAL DOSIMETRIST - CROTCH BREAKER Work Phone: [facility] 06-30-2024 09:56-0400 Diastolic blood pressure 92 mm[Hg] Roel Shirlene DO Work Phone: [facility] 06-30-2024 09:56-0400 Systolic blood pressure 128 mm[Hg] Roel Shirlene DO Work Phone: [facility] 06-13-2024 09:51-0400 Body height 160 cm Mendez Biedenlorrie DO Work Phone: [facility] 06-13-2024 09:51-0400 Body mass index (BMI) [Ratio] 40.74 kg/m2 Mendez Biedenbach DO Work Phone: [facility] 06-13-2024 09:51-0400 Body weight 104.33 kg Mendez Biedenbach DO Work Phone: [facility] 06-02-2024 09:30-0400 Body height 160.02 cm Rory Shammo ENGINEERING MECHANIC-BC Work Phone: [facility] 06-02-2024 09:30-0400 Body mass index (BMI) [Ratio] 38.7 kg/m2 Rory Shammo ENGINEERING MECHANIC-BC Work Phone: [facility] 06-02-2024 09:30-0400 Body weight 99.1 kg Rory Shammo ENGINEERING MECHANIC-BC Work Phone: [facility] 06-02-2024 09:30-0400 Diastolic blood pressure 74 mm[Hg] Rory Driver ENGINEERING MECHANIC-BC Work Phone: [facility] 06-02-2024 09:30-0400 Systolic blood pressure 127 mm[Hg] Rory Driver ENGINEERING MECHANIC-BC Work Phone: [facility] 05-26-2024 11:32-0400 Body mass index (BMI) [Ratio] 40.39 kg/m2 Roel Shirlene DO Work Phone: [facility] 05-26-2024 11:32-0400 Body weight 103.42 kg Roel Shirlene DO Work Phone: [facility] 05-26-2024 11:32-0400 Diastolic blood pressure 78 mm[Hg] Roel Shirlene DO Work Phone: [facility] 05-26-2024 11:32-0400 Systolic blood pressure 128 mm[Hg] Roel Shirlene DO Work Phone: [facility] 04-28-2024 10:28-0500 Body height 160 cm Mendez Biedenbach DO Work Phone: [facility] 04-28-2024 10:28-0500 Body mass index (BMI) [Ratio] 38.79 kg/m2 Mendez Biedenbach DO Work Phone: [facility] 04-28-2024 10:28-0500 Body weight 99.34 kg Mendez Biedenbach DO Work Phone: [facility] 04-18-2024 10:57-0500 Body mass index (BMI) [Ratio] 38.79 kg/m2 Roel Shirlene DO Work Phone: [facility] 04-18-2024 10:57-0500 Body weight 99.34 kg Roel Shirlene DO Work Phone: [facility] 04-18-2024 10:57-0500 Diastolic blood pressure 84 mm[Hg] Roel Shirlene DO Work Phone: [facility] 04-18-2024 10:57-0500 Systolic blood pressure 138 mm[Hg] Roel Garber DO Work Phone: [facility] 04-07-2024 10:31-0500 Body height 160 cm Cleo Zambrano MD Work Phone: [facility] 04-07-2024 10:31-0500 Body mass index (BMI) [Ratio] 39.33 kg/m2 Cleo Zambrano MD Work Phone: [facility] 04-07-2024 10:31-0500 Body weight 100.7 kg Cleo Zambrano MD Work Phone: [facility] 04-07-2024 10:31-0500 Diastolic blood pressure 82 mm[Hg] Cleo Zambrano MD Work Phone: [facility] 04-07-2024 10:31-0500 Heart rate 107 /min Cleo Zambrano MD Work Phone: [facility] 04-07-2024 10:31-0500 Respiratory rate 16 /min Cleo Zambrano MD Work Phone: [facility] 04-07-2024 10:31-0500 SaO2% (BldA) [Mass fraction] 98 % Cleo Zambrano MD Work Phone: [facility] 04-07-2024 10:31-0500 Systolic blood pressure 122 mm[Hg] Cleo Zambrano MD Work Phone: [facility] 01-21-2024 09:35-0500 Body height 160.02 cm Rory Shammo ENGINEERING MECHANIC-BC Work Phone: [facility] 01-21-2024 09:35-0500 Body mass index (BMI) [Ratio] 38.8 kg/m2 Rory Shammo ENGINEERING MECHANIC-BC Work Phone: [facility] 01-21-2024 09:35-0500 Body weight 99.4 kg Rory Shammo ENGINEERING MECHANIC-BC Work Phone: [facility] 01-13-2024 17:30-0500 Diastolic blood pressure 71 mm[Hg] Lisette Junior DO Work Phone: [facility] [email or web address] 01-13-2024 17:30-0500 Heart rate 95 /min Lisette Junior DO Work Phone: [facility] [email or web address] 01-13-2024 17:30-0500 SaO2% (BldA) [Mass fraction] 99 % Lisette Junior DO Work Phone: [facility] [email or web address] 01-13-2024 17:30-0500 Systolic blood pressure 131 mm[Hg] Lisette Junior DO [facility] 01-13-2024 15:30-0500 Respiratory rate 16 /min Lisette Junior DO [facility] 01-13-2024 14:24-0500 Body height 160 cm Lisette Junior DO Work Phone: [facility] [email or web address] 01-13-2024 14:24-0500 Body mass index (BMI) [Ratio] 37.55 kg/m2 Lisette Junior DO Work Phone: [facility] [email or web address] 01-13-2024 14:24-0500 Body temperature 98.1 [degF] Lisette Junior DO [facility] 01-13-2024 14:24-0500 Body weight 96.16 kg Lisette Junior DO [facility] Phone[facility] 11-30-2023 11:10-0400 Body height 160 cm Brittany Neivlle CROTCH BREAKER Work Phone: [facility] 11-30-2023 11:10-0400 Body mass index (BMI) [Ratio] 35.96 kg/m2 Brittany Neville CROTCH BREAKER Work Phone: [facility] 11-30-2023 11:10-0400 Body weight 92.08 kg Brittany Spencerr CROTCH BREAKER Work Phone: [facility] 11-30-2023 10:26-0400 Diastolic blood pressure 70 mm[Hg] Brittany Spencerr CROTCH BREAKER Work Phone: [facility] 11-30-2023 10:26-0400 Heart rate 90 /min Brittany Spencerr CROTCH BREAKER Work Phone: [facility] 11-30-2023 10:26-0400 SaO2% (BldA) [Mass fraction] 96 % Brittany Spencerr CROTCH BREAKER Work Phone: [facility] 11-30-2023 10:26040 Systolic blood pressure 118 mm[Hg] Brittany Spencerr CROTCH BREAKER Work Phone: [facility] 10-08-2023 09:17-0400 Body height 160 cm Dwayne Khoury MD Work Phone: [facility] 10-08-2023 09:17-0400 Body mass index (BMI) [Ratio] 36.36 kg/m2 Dwayne Khoury MD Work Phone: [facility] 10-08-2023 09:17-0400 Body weight 93.1 kg Dwayne Khoury MD Work Phone: [facility] 10-08-2023 09:17-0400 Diastolic blood pressure 86 mm[Hg] Dwayne Khoury MD Work Phone: [facility] 10-08-2023 09:17-0400 Heart rate 102 /min Dwayne Khoury MD Work Phone: [facility] 10-08-2023 09:17-0400 Respiratory rate 16 /min Dwayne Khoury MD Work Phone: [facility] 10-08-2023 09:17-0400 Systolic blood pressure 145 mm[Hg] Dwayne Khoury MD Work Phone: [facility] 06-02-2023 14:32-0400 Body mass index (BMI) [Ratio] 36.67 kg/m2 Deepika Robledo MD Work Phone: [facility] 06-02-2023 14:32-0400 Body weight 93.89 kg Deepika Robledo MD Work Phone: [facility] 06-02-2023 14:32-0400 Diastolic blood pressure 102 mm[Hg] Deepika Robledo MD Work Phone: [facility] 06-02-2023 14:32-0400 Heart rate 83 /min Deepika Robledo MD Work Phone: [facility] 06-02-2023 14:32-0400 Systolic blood pressure 136 mm[Hg] Deepika Robledo MD Work Phone: [facility] 05-21-2023 11:22-0400 Body height 160.[address] [facility] 05-21-2023 11:22-0400 Body mass index (BMI) [Ratio] 36.5 kg/m2 [facility] 05-21-2023 11:22-0400 Body weight 93.[address] [facility] 05-21-2023 10:39-0400 Body height 160.[address] [facility] 05-21-2023 10:39-0400 Body mass index (BMI) [Ratio] 36.5 kg/m2 [facility] 05-21-2023 10:39-0400 Body weight 93.[address] [facility] 05-21-2023 10:39-0400 Diastolic blood pressure 77 mm[Hg] [facility] 05-21-2023 10:39-0400 Heart rate 105 /min [facility] 05-21-2023 10:39-0400 Respiratory rate 18 /min [facility] 05-21-2023 10:39-0400 SaO2% (BldA) [Mass fraction] 95 % [facility] 05-21-2023 10:39-0400 Systolic blood pressure 114 mm[Hg] [facility] 04-28-2023 11:21-0500 Body height 160 cm Gaurav Sellers PA Work Phone: [employer] 04-28-2023 11:21-0500 Body mass index (BMI) [Ratio] 36.14 kg/m2 Gaurav Sellers PA Work Phone: [employer] 04-28-2023 11:21-0500 Body weight 92.53 kg [facility] 04-28-[facility]23 11:21-0500 Diastolic blood pressure 82 mm[Hg] [facility]aur[facility]ellers [facility] 04-28-2023 11:21-0500 Heart rate 87 /min Gaurav Sellers PA Work Phone: [employer] 04-28-2023 11:21-0500 Respiratory rate 16 /min Gaurav Sellers PA Work Phone: [employer] 04-28-2023 11:21-0500 SaO2% (BldA) [Mass fraction] 97 % Gaurav Sellers PA Work Phone: [employer] 04-28-2023 11:21-0500 Systolic blood pressure 122 mm[Hg] Gaurav Sellers PA Work Phone: [employer] 04-20-2023 12:41-0500 Body mass index (BMI) [Ratio] 36.49 kg/m2 Shawna Rumschlag DO Work Phone: [employer] 04-20-2023 12:41-0500 Body weight 93.44 kg Shawna Rumschlag DO Work Phone: [employer] 04-20-2023 12:41-0500 Diastolic blood pressure 76 mm[Hg] Shawna Rumschlag DO Work Phone: [employer] 04-20-2023 12:41-0500 Heart rate 83 /min Shawna Rumschlag DO Work Phone: [employer] 04-20-2023 12:41-0500 Respiratory rate 16 /min Shawna Rumschlag DO Work Phone: [employer] 04-20-2023 12:41-0500 SaO2% (BldA) [Mass fraction] 98 % Shawna Rumschlag DO Work Phone: [facility] [email or web address] 04-20-2023 12:41-0500 Systolic blood pressure 129 mm[Hg] Shawna Rumschlag DO Work Phone: [facility] [email or web address] 04-20-2023 12:39-0500 Body temperature 97.3 [degF] Shawna Rumschlag DO Work Phone: [facility] [email or web address] 03-18-2023 11:30-0500 Diastolic blood pressure 84 mm[Hg] MD Yo Blank Work Phone: [facility] 03-18-2023 11:30-0500 Heart rate 95 /min MD Yo Blank Work Phone: [facility] 03-18-2023 11:30-0500 Respiratory rate 16 /min MD Yo Blank Work Phone: [facility] 03-18-2023 11:30-0500 SaO2% (BldA) [Mass fraction] 99 % MD Yo Blank Work Phone: [facility] 03-18-2023 11:30-0500 Systolic blood pressure 123 mm[Hg] MD Yo Blank Work Phone: [facility] 03-05-2023 09:15-0500 Body height 160.02 cm Gayathri Adams Other [employer] Other 03-05-2023 09:15-0500 Body mass index (BMI) [Ratio] 37.57 kg/m2 Gayathri Adams Other [employer] Other 03-05-2023 09:15-0500 Body weight 96.21 kg Gayathri Scally Other [employer] Other 03-05-2023 09:15-0500 Diastolic blood pressure 89 mm[Hg] Gayathri Scally Other [employer] Other 03-05-2023 09:15-0500 Respiratory rate 18 /min Gayathri Scally Other [employer] Other 03-05-2023 09:15-0500 SaO2% (BldA) [Mass fraction] 96 % Gayathri Scally Other [employer] Other 03-05-2023 09:15-0500 Systolic blood pressure 122 mm[Hg] Gayathri Scally Other [employer] Other 03-02-2023 19:24-0500 Body height 160 cm Sil Sullivan DO Work Phone: [employer] 03-02-2023 19:24-0500 Body mass index (BMI) [Ratio] 36.31 kg/m2 Sil Sullivan DO Work Phone: [employer] 03-02-2023 19:24-0500 Body temperature 98.29 [degF] Sil Sullivan DO Work Phone: [employer] 03-02-2023 19:24-0500 Body weight 92.99 kg Sil Sullivan DO Work Phone: [employer] 03-02-2023 19:24-0500 Diastolic blood pressure 98 mm[Hg] Sil Sullivan DO Work Phone: [employer] 03-02-2023 19:24-0500 Heart rate 82 /min Sil Sullivan DO Work Phone: [employer] 03-02-2023 19:24-0500 Respiratory rate 18 /min Sil Sullivan DO Work Phone: [employer] 03-02-2023 19:24-0500 SaO2% (BldA) [Mass fraction] 98 % Sil Sullivan DO Work Phone: [employer] 03-02-2023 19:24-0500 Systolic blood pressure 139 mm[Hg] Sil Sullivan DO Work Phone: [employer] 02-05-2023 09:20-0500 Body height 160.02 cm Jan Garg Other [employer] Other 02-05-2023 09:20-0500 Body mass index (BMI) [Ratio] 36.66 kg/m2 Jan Garg Other [employer] Other 02-05-2023 09:20-0500 Body weight 93.9 kg Jan Garg Other [employer] Other 01-15-2023 09:45-0500 Body height 160.02 cm Gayathri Scally Other [employer] Other 01-15-2023 09:45-0500 Body mass index (BMI) [Ratio] 36.68 kg/m2 Gayathri Scally Other [employer] Other 01-15-2023 09:45-0500 Body weight 93.94 kg Gayathri Scally Other [employer] Other 01-15-2023 09:45-0500 Diastolic blood pressure 83 mm[Hg] Gayathri Scally Other [employer] Other 01-15-2023 09:45-0500 Respiratory rate 18 /min Gayathri Adams Other [employer] Other 01-15-2023 09:45-0500 SaO2% (BldA) [Mass fraction] 99 % Gayathri Adams Other [employer] Other 01-15-2023 09:45-0500 Systolic blood pressure 119 mm[Hg] Gayathrimarino Barahonaly Other [employer] Other 01-07-2023 10:00-0500 Body height 160.02 cm Jan Garg Other [employer] Other 01-07-2023 10:00-0500 Body mass index (BMI) [Ratio] 36.13 kg/m2 Jan Nadyaner Other [employer] Other 01-07-2023 10:00-0500 Body weight 92.53 kg Jan Scovanner Other [employer] Other 01-07-2023 10:00-0500 Diastolic blood pressure 74 mm[Hg] Jan Scovanner Other [employer] Other 01-07-2023 10:00-0500 Systolic blood pressure 118 mm[Hg] Jan Scovanner Other [employer] Other 08-28-2022 09:00-0400 Body height 160.02 cm Tamar Fitt Other [employer] Other 08-28-2022 09:00-0400 Body mass index (BMI) [Ratio] 35.8 kg/m2 Tamar Fitt Other [employer] Other 08-28-2022 09:00-0400 Body weight 91.67 kg Tamar Fitt Other [employer] Other 07-29-2022 10:15-0400 Body height 160.02 cm Gayathri Scally Other [employer] Other 07-29-2022 10:15-0400 Body mass index (BMI) [Ratio] 35.18 kg/m2 Gayathri Scally Other [employer] Other 07-29-2022 10:15-0400 Body weight 90.08 kg Gayathri Scally Other [employer] Other 07-29-2022 10:15-0400 Diastolic blood pressure 84 mm[Hg] Gayathri Scally Other [employer] Other 07-29-2022 10:15-0400 Respiratory rate 18 /min Gayathri Scally Other [employer] Other 07-29-2022 10:15-0400 SaO2% (BldA) [Mass fraction] 99 % Gayathri Scally Other [employer] Other 07-29-2022 10:15-0400 Systolic blood pressure 127 mm[Hg] Gayathri Scally Other [employer] Other 05-20-2022 11:15-0400 Body height 160.02 cm Gayathri Scally Other [employer] Other 05-20-2022 11:15-0400 Body mass index (BMI) [Ratio] 34.52 kg/m2 Gayathri Scally Other [employer] Other 05-20-2022 11:15-0400 Body weight 88.41 kg Gayathri Scally Other [employer] Other 05-20-2022 11:15-0400 Diastolic blood pressure 82 mm[Hg] Gayathri Scally Other [employer] Other 05-20-2022 11:15-0400 Respiratory rate 18 /min Gayathri Scally Other [employer] Other 05-20-2022 11:15-0400 SaO2% (BldA) [Mass fraction] 97 % Gayathri Scally Other [employer] Other 05-20-2022 11:15-0400 Systolic blood pressure 121 mm[Hg] Gayathri Scally Other [employer] Other 04-08-2022 11:15-0500 Body height 160.02 cm Gayathri Scally Other [employer] Other 04-08-2022 11:15-0500 Body mass index (BMI) [Ratio] 34.49 kg/m2 Gayathri Scally Other [employer] Other 04-08-2022 11:15-0500 Body weight 88.32 kg Gayathri Scally Other [employer] Other 04-08-2022 11:15-0500 Diastolic blood pressure 77 mm[Hg] Agyathri Scally Other [employer] Other 04-08-2022 11:15-0500 Respiratory rate 18 /min Gayathri Scally Other [employer] Other 04-08-2022 11:15-0500 SaO2% (BldA) [Mass fraction] 98 % Gaaythri Scally Other [employer] Other 04-08-2022 11:15-0500 Systolic blood pressure 110 mm[Hg] Gayathri Scally Other [employer] Other 04-08-2022 10:15-0500 Body height 160.02 cm Tamar Fitt Other [employer] Other 04-08-2022 10:15-0500 Body mass index (BMI) [Ratio] 34.49 kg/m2 Tamar Fitt Other [employer] Other 04-08-2022 10:15-0500 Body weight 88.32 kg Tamar Fitt Other [employer] Other 02-26-2022 10:00-0500 Body height 160.02 cm Tamar Fitt Other [employer] Other 02-25-2022 11:45-0500 Body height 160.02 cm Gayathri Scally Other [employer] Other 02-25-2022 11:45-0500 Body mass index (BMI) [Ratio] 36.63 kg/m2 Gayathri Scally Other [employer] Other 02-25-2022 11:45-0500 Body weight 93.8 kg Gayathri Scally Other [employer] Other 02-25-2022 11:45-0500 Diastolic blood pressure 78 mm[Hg] Gayathri Scally Other [employer] Other 02-25-2022 11:45-0500 Respiratory rate 18 /min Gayathri Scally Other [employer] Other 02-25-2022 11:45-0500 SaO2% (BldA) [Mass fraction] 97 % Gayathri Scally Other [employer] Other 02-25-2022 11:45-0500 Systolic blood pressure 109 mm[Hg] Gayathri Scally Other [employer] Other 01-14-2022 11:45-0500 Body height 160.02 cm Gayathri Scally Other [employer] Other 01-14-2022 11:45-0500 Body mass index (BMI) [Ratio] 39.37 kg/m2 Gayathri Scally Other [employer] Other 01-14-2022 11:45-0500 Body weight 100.84 kg Gayathri Scally Other [employer] Other 01-14-2022 11:45-0500 Diastolic blood pressure 88 mm[Hg] Gayathri Scally Other [employer] Other 01-14-2022 11:45-0500 Respiratory rate 18 /min Gayathri Scally Other [employer] Other 01-14-2022 11:45-0500 SaO2% (BldA) [Mass fraction] 97 % Gayathri Scally Other [employer] Other 01-14-2022 11:45-0500 Systolic blood pressure 124 mm[Hg] Gayathri Scally Other [employer] Other 12-04-2021 12:00-0400 Body height 160.02 cm Gayathri Scally Other [employer] Other 12-04-2021 12:00-0400 Body mass index (BMI) [Ratio] 39.73 kg/m2 Gayathri Scally Other [employer] Other 12-04-2021 12:00-0400 Body weight 101.74 kg Gayathri Scally Other [employer] Other 12-04-2021 12:00-0400 Diastolic blood pressure 74 mm[Hg] Gayathri Scally Other [employer] Other 12-04-2021 12:00-0400 Respiratory rate 18 /min Gayathri Scally Other [employer] Other 12-04-2021 12:00-0400 SaO2% (BldA) [Mass fraction] 95 % Gayathri Scally Other [employer] Other 12-04-2021 12:00-0400 Systolic blood pressure 110 mm[Hg] Gayathri Scally Other [employer] Other 10-29-2021 11:30-0400 Body height 160.02 cm Yo Blank Other [employer] Other 10-29-2021 11:30-0400 Body mass index (BMI) [Ratio] 38.61 kg/m2 Yo Blank Other [employer] Other 10-29-2021 11:30-0400 Body weight 98.88 kg Yo Blank Other [employer] Other 10-29-2021 11:30-0400 Diastolic blood pressure 74 mm[Hg] Yo Blank Other [employer] Other 10-29-2021 11:30-0400 Systolic blood pressure 111 mm[Hg] Yo Blank Other [employer] Other 10-22-2021 13:26-0400 Body temperature 97.2 [degF] Shawna Rumschlag DO Work Phone: [employer] 10-22-2021 13:26-0400 Diastolic blood pressure 71 mm[Hg] Shawna Rumschlag DO Work Phone: [employer] 10-22-2021 13:26-0400 Heart rate 85 /min Shawna Rumschlag DO Work Phone: [employer] 10-22-2021 13:26-0400 Respiratory rate 16 /min Shawna Rumschlag DO Work Phone: [employer] 10-22-2021 13:26-0400 SaO2% (BldA) [Mass fraction] 94 % Shawna Rumschlag DO Work Phone: [employer] 10-22-2021 13:26-0400 Systolic blood pressure 131 mm[Hg] Shawna Rumschlag DO Work Phone: [employer] 10-11-2021 23:48-0400 Body height 160 cm Daniel Adkins MD Work Phone: [employer] 10-11-2021 23:48-0400 Body mass index (BMI) [Ratio] 36.67 kg/m2 Daniel Adkins MD Work Phone: [employer] 10-11-2021 23:48-0400 Body temperature 98.6 [degF] Daniel Adkins MD Work Phone: [employer] 10-11-2021 23:48-0400 Body weight 93.89 kg Daniel Adkins MD Work Phone: [employer] 10-11-2021 23:48-0400 Diastolic blood pressure 88 mm[Hg] Daniel Adkins MD Work Phone: [employer] 10-11-2021 23:48-0400 Heart rate 97 /min Daniel Adkins MD Work Phone: [employer] 10-11-2021 23:48-0400 Respiratory rate 16 /min Daniel Adkins MD Work Phone: [employer] 10-11-2021 23:48-0400 SaO2% (BldA) [Mass fraction] 96 % Daniel Adkins MD Work Phone: [employer] 10-11-2021 23:48-0400 Systolic blood pressure 134 mm[Hg] Daniel Adkins MD Work Phone: [employer] Encounters Encounter Date Encounter Type Care Provider Facility Start: 09-06-2024 End: 09-06-2024 Telephone encounter Dwayne Khoury MD Work Phone: [facility] Start: 09-01-2024 End: 09-01-2024 Bamboo flowsheet Mendez Cardoso DO Work Phone: [facility] Start: 09-01-2024 End: 09-01-2024 Bamboo flowsheet Mendez Cardoso DO Work Phone: [facility] Start: 09-01-2024 End: 09-01-2024 ambulatory MENDEZ CARDOSO Not Available Start: 09-01-2024 End: 09-01-2024 Postop follow up visit related to original px Mendez Cardoso DO Work Phone: [facility] Comment on above: Obstructive sleep ap austin (Primary Dx) Start: 08-19-2024 End: 08-19-2024 Bamboo flowsheet Mendez Cardoso DO Work Phone: [facility] Start: 08-19-2024 End: 08-19-2024 Bamboo flowsheet Mendez Cardoso DO Work Phone: [facility] Start: 08-19-2024 End: 08-19-2024 ambulatory MENDEZ CARDOSO Not Available Start: 08-19-2024 End: 08-19-2024 Postop follow up visit related to original px Mendez Cardoso DO Work Phone: [facility] Comment on above: Obstructive sleep ap autsin (Primary Dx); Intolerance of continuous positive airway pressure (CPAP) ventilation Start: 08-18-2024 End: 08-18-2024 Evaluation and management of inpatient ANA PAULA INGRAM [facility] Start: 08-10-2024 End: 08-10-2024 External Result Encounter Mendez Cardoso DO Work Phone: [facility] External Department Unsolicited Start: 08-10-2024 End: 08-10-2024 External Result Encounter Mendez Cardoso DO Work Phone: [facility] External Department Unsolicited Start: 08-10-2024 End: 08-10-2024 Admission to same day surgery center Loreto Mcneal APRN Work Phone: [facility] [place] Start: 08-10-2024 End: 08-10-2024 ambulatory Loreto Mcneal MEDICAL DOSIMETRIST Work Phone: [facility] Work Phone: Start: 08-08-2024 End: 08-08-2024 ambulatory Loreto Chase Fredis MEDICAL DOSIMETRIST Work Phone: [facility] Work Phone: Start: 08-08-2024 End: 08-08-2024 Patient encounter procedure Loreto Fredis MEDICAL DOSIMETRIST Work Phone: [facility] Work Phone: Start: 08-04-2024 End: 08-04-2024 Bamboo flowsheet Cleo Zambrano MD Work Phone: [facility] Start: 08-04-2024 End: 08-04-2024 Bamboo flowsheet Cleo Zambrano MD Work Phone: [facility] Start: 08-04-2024 End: 08-04-2024 ambulatory CLEO ZAMBRANO Not Available Start: 08-04-2024 End: 08-04-2024 Office outpatient visit 25 minutes Cleo Zambrano MD Work Phone: [facility] Comment on above: Type 2 diabetes mine itus without complication, unspecified whether jail insulin use (Primary Dx); Vitamin D deficiency; Weight gain; Encounter for dietary consultation; Hyperlipemia, mixed (CMS/HCC); Class 3 severe obesity due to excess calories without serious comorbidity with body mass index (BMI) of 40.0 to 44.9 in adult Start: 08-02-2024 End: 08-02-2024 Bamboo flowsheet Roel Shirlene DO Work Phone: [facility] Start: 08-02-2024 End: 08-02-2024 Bamboo flowsheet Roel Shirlene DO Work Phone: [facility] Start: 08-02-2024 End: 08-02-2024 ambulatory ROEL SHIRLENE Not Available Start: 08-02-2024 End: 08-02-2024 Office outpatient visit 15 minutes Roel Shirlene DO Work Phone: [facility] Comment on above: Itching with irritat ion; Nexplanon removal Start: 07-27-2024 End: 07-27-2024 Patient encounter procedure Loreto Mcneal MEDICAL DOSIMETRIST Work Phone: [facility] Work Phone: Start: 07-27-2024 End: 07-27-2024 ambulatory Loreto Mcneal MEDICAL DOSIMETRIST Work Phone: [facility] Work Phone: Start: 07-20-2024 End: 07-20-2024 Telephone encounter Cleo Zambrano MD Work Phone: [facility] Comment on above: Advice Only Start: 07-16-2024 End: 07-16-2024 Emergency department patient visit LORETO MCNEAL [facility] Comment on above: Post-traumatic osteo arthritis of left ankle (Primary Dx); Midline low back pain without sciatica, unspecified chronicity Start: 06-30-2024 End: 06-30-2024 Patient encounter procedure Roel Shirlene DO Work Phone: [facility] Comment on above: Nexplanon removal Start: 06-30-2024 End: 06-30-2024 ambulatory ROEL SHIRLENE Not Available Start: 06-27-2024 End: 06-27-2024 ambulatory Ugo Bourgeois MD Facility:[facility] Start: 06-20-2024 End: 06-20-2024 ambulatory [facility] Start: 06-13-2024 End: 06-13-2024 Bamboo flowsheet Mendez Cardoso DO Work Phone: [facility] Start: 06-13-2024 End: 06-13-2024 Bamboo flowsheet Mendez Cardoso DO Work Phone: [facility] Start: 06-13-2024 End: 06-13-2024 Office outpatient visit 15 minutes Mendez Ahumada Angel DO Work Phone: [facility] Comment on above: Obstructive sleep ap austin (Primary Dx); Intolerance of continuous positive airway pressure (CPAP) ventilation; Class 3 severe obesity with serious comorbidity and body mass index (BMI) of 40.0 to 44.9 in adult, unspecified obesity type Start: 06-13-2024 End: 06-13-2024 ambulatory MENDEZ CARDOSO Not Available Start: 06-02-2024 End: 06-02-2024 ambulatory Rory Driver ENGINEERING MECHANIC[employer]BC Work Phone: [facility] Work Phone: Start: 06-02-2024 End: 06-02-2024 Patient encounter procedure Rory Driver ENGINEERING MECHANIC-BC Work Phone: [facility] Work Phone: Start: 05-27-2024 End: 05-27-2024 Clinisync [...] Available Start: 05-10-2024 End: 05-10-2024 ambulatory LAILA LUISANA Not Available Start: 05-09-2024 End: 05-09-2024 ambulatory Ugo Bourgeois MD Facility:[facility] Start: 04-28-2024 End: 04-28-2024 Office outpatient visit 25 minutes Mendez Cardoso DO Work Phone: [facility] Comment on above: Obstructive sleep ap austin (Primary Dx); Intolerance of continuous positive airway pressure (CPAP) ventilation; Body mass index 34.0-34.9, adult Start: 04-28-2024 End: 04-28-2024 ambulatory MENDEZ CARDOSO Not Available Start: 04-25-2024 End: 04-25-2024 Bamboo flowsheet Brittany Neville [employer] Work Phone: [facility] Start: 04-25-2024 End: 04-25-2024 Bamboo flowsheet Brittany Neville [employer]ER Work Phone: [facility] Start: 04-18-2024 End: [...] 15 minutes Roel Shirlene DO Work Phone: [facility] Comment on above: Hormone imbalance; Hormone disorder; Toenail fungus Start: 04-13-2024 End: 04-14-2024 Telephone encounter Cleo Zambrano MD Work Phone: [facility] Comment on above: Prior Authorization Start: 04-07-2024 End: 04-07-2024 Bamboo flowsheet Cleo Zambrano MD Work Phone: [facility] Start: 04-07-2024 End: 04-07-2024 Bamboo flowsheet Cleo Zambrano MD Work Phone: [facility] Start: 04-07-2024 End: 04-07-2024 ambulatory CLEO ZAMBRANO Not Available Start: 04-07-2024 End: 04-07-2024 Office outpatient visit 25 minutes Cleo Zambraon MD Work Phone: [facility] Comment on above: Type 2 diabetes mine itus without complication, unspecified whether termite helper insulin use ([facility]) (Primary Dx); Vitamin D deficiency; Weight gain; Encounter for dietary consultation; Hyperlipemia, mixed ([facility]); Class 2 severe obesity due to excess calories with serious comorbidity and body mass index (BMI) of 39.0 to 39.9 in adult (CMS/HCC) Start: 04-04-2024 Non-patient / Non-visit Rory Driver ENGINEERING MECHANIC-BC Work Phone: [facility] Work Phone: Start: 03-09-2024 End: 03-09-2024 ambulatory Rory Driver ENGINEERING MECHANIC-BC Work Phone: [facility] Work Phone: Start: 03-09-2024 End: 03-09-2024 Departed Referred Rory Driver ENGINEERING MECHANIC-BC Work Phone: [facility] Start: 02-29-2024 End: 03-03-2024 Refill Paula Sanderson MD Work Phone: [facility] Comment on above: Chronic rhinitis Start: 02-16-2024 End: 02-17-2024 Telephone encounter Cleo Zambrano MD Work Phone: [facility] Comment on above: Medication Problem Start: 02-09-2024 End: 02-09-2024 Subsequent hospital visit by physician Jan Olmstead PT [facility] Physical [facility] Start: 02-09-2024 ambulatory LORETO MCNEAL [facility] Start: 02-01-2024 End: 02-01-2024 ambulatory Ugo Bourgeois MD Facility:[facility] Start: 01-26-2024 End: 01-26-2024 ambulatory LORETO FREDIS [facility] Start: 01-26-2024 End: 01-26-2024 Subsequent hospital visit by physician Tamar Silveira PT [facility] Physical [facility] Comment on above: Arrived Start: 01-21-2024 End: 01-21-2024 Patient encounter procedure Rory Driver ENGINEERING MECHANIC-BC Work Phone: [facility] Work Phone: Start: 01-13-2024 End: 01-13-2024 Emergency department patient visit Lisette Junior Work Phone: [facility] ED Comment on above: Dizziness (Primary D x) Start: 01-11-2024 End: 01-11-2024 ambulatory Ugo Bourgeois MD [facility] Start: 12-29-2023 End: 12-29-2023 Subsequent hospital visit by physician Tamar Silveira PT [facility] Physical [facility] Start: 12-21-2023 End: 12-21-2023 ambulatory [facility] Start: 12-15-2023 End: 12-15-2023 ambulatory LORETO FREDIS [facility] Start: 12-01-2023 End: 12-01-2023 ambulatory LORETO NASEEMHOLEFRAIN [facility] Start: 11-30-2023 End: 11-30-2023 Ruddyboo flowsbob Neville NP Work Phone: [facility] Start: 11-30-2023 End: 11-30-2023 Bamboo flowsheet Brittany Ana Maríavolodymyr [employer] Work Phone: [facility] Start: 11-30-2023 End: 11-30-2023 Telephone encounter Brittany Gillvolodymyr [employer]ER [facility] Start: 11-30-2023 End: 11-30-2023 ambulatory BRITTANY PASCUAL Not Available Start: 11-30-2023 End: 11-30-2023 Office outpatient visit 25 minutes Brittany Neville [employer]CH [employer]ER Work Phone: [facility] Comment on above: JADON (obstructive sle ep apnea) (Primary Dx); Tension headache; Chronic bilateral low back pain, unspecified whether sciatica present; Paresthesias Start: 11-17-2023 End: 11-17-2023 [facility] Start: 11-17-2023 End: 11-17-2023 Subsequent hospital visit by physician Tamar Silveira PT [facility] Physical Therapy Comment on above: Arrived Start: 11-16-2023 End: 11-16-2023 ambulatory Ugo Bourgeois MD Facility:[facility] Start: 10-20-2023 End: 10-20-2023 ambulatory [facility] Start: 10-20-2023 End: 10-20-2023 Subsequent hospital visit by physician Jan Olmstead PT [facility] Physical Therapy Comment on above: Arrived Start: 10-08-2023 End: 10-08-2023 Office outpatient new 30 minutes Dwayne Khoury MD Work Phone: [facility] Comment on above: Macromastia (Primary Dx) Start: 10-08-2023 End: 10-08-2023 ambulatory DWAYNE KHOURY [facility] Start: 10-06-2023 End: 10-07-2023 Emergency department patient visit [facility] Start: 10-05-2023 End: 10-05-2023 Emergency department patient visit [facility] Start: 10-05-2023 End: 10-05-2023 Emergency department patient visit [facility] Start: 09-22-2023 End: 09-22-2023 Subsequent hospital visit by physician Jan Olmstead PT [facility] Physical Therapy Start: 09-15-2023 End: 09-15-2023 ambulatory SHAWNA BOGDAN [facility] Start: 09-08-2023 End: 09-17-2023 Telephone encounter Argenis Storm RN [facility] Comment on above: Med Refill Start: 09-07-2023 End: 09-07-2023 ambulatory SHAWNA BOGDAN [facility] Start: 09-01-2023 End: 09-01-2023 ambulatory SHAWNA BOGDAN [facility] Start: 08-26-2023 End: 08-26-2023 ambulatory SHAWNA EDWARG [facility] Start: 08-26-2023 End: 08-26-2023 Subsequent hospital visit by physician Kofi Villegas PT [facility] Physical Therapy Comment on above: Arrived Start: 08-21-2023 End: 08-21-2023 ambulatory SHAWNA BOGDAN [facility] Start: 08-21-2023 End: 08-21-2023 Subsequent hospital visit by physician Jan Olmstead PT [facility] Physical Therapy Comment on above: Arrived Start: 08-19-2023 End: 09-07-2023 Telephone encounter Margaux Olea CST [facility] Start: 08-11-2023 End: 08-11-2023 ambulatory SHAWNA EDWARG [facility] Start: 08-11-2023 End: 08-11-2023 Subsequent hospital visit by physician Jan Olmstead PT [facility] Physical Therapy Comment on above: Arrived Start: 08-04-2023 End: 08-04-2023 ambulatory SHAWNA RUMSCHLAG [facility] Start: 07-29-2023 End: 07-29-2023 ambulatory SHAWNA RUMSCHLAG [facility] Start: 07-14-2023 End: 07-14-2023 Subsequent hospital visit by physician Rebecca Skinner PT [facility] Physical Therapy Start: 07-07-2023 End: 07-16-2023 Telephone encounter Maty Fulton RN [facility] Start: 06-03-2023 ambulatory SHAWNA BISHOPALWale [facility] Start: 06-02-2023 End: 06-02-2023 Office outpatient new 30 minutes Deepika Robledo MD Work Phone: [facility] Comment on above: Mass of upper outer quadrant of right breast (Primary Dx); Abnormal mammogram; Symptomatic mammary hypertrophy Start: 06-02-2023 End: 06-02-2023 ambulatory DEEPIKA ROBLEDO [facility] Start: 05-25-2023 Patient encounter procedure Brittany Neville CROTCH BREAKER Work Phone: [facility] Start: 05-21-2023 End: 05-21-2023 Patient encounter procedure [facility] Work Phone: Start: 05-21-2023 End: 05-21-2023 Patient encounter procedure [facility] Work Phone: Start: 05-12-2023 Telephone encounter Deepika Robledo MD Work Phone: [facility] Start: 05-06-2023 End: 05-06-2023 Subsequent hospital visit by physician Rojas Altamirano PTA [facility] Physical Therapy Comment on above: Arrived Start: 04-30-2023 Refill Maty Fulton RN [facility] Start: 04-28-2023 End: 04-28-2023 ambulatory GAURAV SELLERS [facility] Start: 04-28-2023 End: 04-28-2023 Office outpatient visit 25 minutes Gaurav CALVO Work Phone: [facility] Comment on above: 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 (Primary Dx) Start: 04-20-2023 End: 04-20-2023 Emergency department patient visit Shawna Rumschlag DO Work Phone: [facility] ED Comment on above: Closed head injury, initial encounter (Primary Dx); Fall due to slipping on ice or snow, initial encounter; Acute cervical myofascial strain, initial encounter Start: 03-31-2023 Emery Clay RN [facility] Start: 03-27-2023 End: 03-27-2023 ambulatory PETE SILVER [facility] Start: 03-18-2023 End: 03-18-2023 ambulatory Jan Garg Other [facility] Other Start: 03-18-2023 Telephone encounter Jan [facility] Start: 03-18-2023 Non-patient / Non-visit MD Selvin Blank Work Phone: [facility] Gastro[facility] Work Phone: Start: 03-17-2023 End: 03-17-2023 ambulatory Jan Garg Other [facility] Other Start: 03-17-2023 Telephone encounter Jan [facility] Start: 03-16-2023 Encounter for genera l adult medical examination without abnormal findings [facility] Start: 03-16-2023 End: 03-16-2023 ambulatory RORY [facility] Start: 03-10-2023 End: 03-10-2023 Subsequent hospital visit by physician Tamar Silveira PT [facility] Comment on above: Arrived Start: 03-05-2023 (FCCCWMNF/U) Weight Management f/u Gayathri Adams [facility] Start: 03-05-2023 End: 03-05-2023 ambulatory Gayathri Adams Other [facility] Other Start: 03-05-2023 Registered Recurring MD Monserrat Blank Work Phone: [facility] Work Phone: Start: 03-02-2023 End: 03-02-2023 Emergency department patient visit Sil Lázaro Zafaris DO Work Phone: [facility] ED Comment on above: Constipation, unspec ified constipation type (Primary Dx) Start: 02-26-2023 End: 02-26-2023 ambulatory Jan Garg Other [facility] Other Start: 02-26-2023 Telephone encounter Jan Peterson [facility] Start: 02-20-2023 Telephone encounter Argenis Storm [facility] Comment on above: Medication, DME Start: 02-18-2023 End: 02-18-2023 ambulatory Jan Garg Other [facility] Other Start: 02-18-2023 Telephone encounter Jan Peterson [facility] Start: 02-10-2023 Telephone encounter Margaux Olea [facility] Start: 02-05-2023 End: 02-05-2023 ambulatory Jan Garg Other [facility] Other Start: 02-05-2023 Office outpatient vi sit 15 minutes Jan Garg [facility] Start: 01-15-2023 (FCCCWMNF/U) Weight Management f/u Gayathri Adams [facility] Start: 01-15-2023 End: 01-15-2023 ambulatory Gayathri Adams Other [facility] Other Start: 01-07-2023 End: 01-07-2023 ambulatory Jan Garg Other [facility] Other Start: 01-07-2023 Office outpatient vi sit 15 minutes Jan Britany [facility] Start: 09-25-2022 End: 01-16-2023 ambulatory HILARY GRANADO Facility:[facility] Start: 09-25-2022 End: 01-15-2023 Recurring YUE GRANADO Heath Yadkin [facility] Start: 09-17-2022 End: 09-17-2022 ambulatory Gayathri Adams Other [facility] Other Start: 09-17-2022 Telephone encounter [facility]athri [facility] Start: 08-28-2022 ([facility] [address] FU) [facility] F/ U Registerd Basket Patcher Tamar Sosa [facility] Start: 08-28-2022 End: 08-28-2022 ambulatory Tamar Sosa Other [facility] Other Start: 07-29-2022 [facility] Weight Management f/u Gayathrimarino Adams [facility] Start: 07-29-2022 End: 07-29-2022 ambulatory Gayathrimarino Adams Other [facility] Other Start: 05-20-2022 [facility] Weight Management f/u Gayathrimarino Adams [facility] Start: 05-20-2022 End: 05-20-2022 ambulatory Gayathrimarino Adams Other [facility] Other Start: 05-19-2022 End: 05-19-[address] ROEL GARBER . Facility:[facility] Start: 05-07-2022 End: 05-08-[address] DOCTOR ARREOLA Facility:[facility] Start: 04-09-2022 End: 04-09-2022 ambulatory Gayathrimarino Adams Other [facility] Other Start: 04-09-2022 Telephone encounter Gayathri last [facility] Start: 04-08-2022 ([facility] WMNI) WMN Init ial Provider Tamar Sosa [facility] Start: 04-08-2022 ([facility] Weight Management f/u Gayathrikasia Adams [facility] Start: 04-08-2022 End: 04-08-2022 ambulatory Tamar Fitt Other [facility] Other Start: 02-26-2022 End: 02-26-2022 ambulatory Tamar Fitt Other [facility] Other Start: 02-26-2022 IBT FOR OBESITY GROU P 2-10 30M Tamar Fitt [facility] Start: 02-25-2022 ([facility] Weight Management f/u Gayathrikasia Adams [facility] Start: 02-25-2022 End: 02-25-2022 ambulatory Gayathri Adams Other [facility] Other Start: 02-17-2022 End: 02-18-2022 ambulatory RORY KOOPA Facility:[facility] Start: 01-29-2022 End: 01-30-2022 ambulatory JOY Reis [facility] Facility:[facility] Start: 01-14-2022 ([facility] Weight Management f/u Gayathri Adams [facility] Start: 01-14-2022 End: 01-14-2022 ambulatory Gayathri Adams Other [facility] Other Start: 12-05-2021 End: 12-05-2021 ambulatory Gayathri Adams Other [facility] Other Start: 12-05-2021 Telephone encounter Gayathrimarino Adams [facility] Start: 12-04-2021 End: 12-04-2021 ambulatory Gayathri Adams Other [facility] Other Start: 12-04-2021 Nutrition therapy Gayathri [facility] Start: 10-29-2021 End: 10-29-2021 ambulatory Yo Blank Other [facility] [employer] Other Start: 10-29-2021 Patient encounter procedure Yo Blank [facility] Start: 10-22-2021 End: 10-22-2021 Emergency department patient visit Shawna Mcfadden DO Work Phone: [facility] ED Comment on above: Acute diffuse otitis externa of left ear (Primary Dx) Start: 10-11-2021 End: 10-12-2021 Emergency department patient visit Daniel Adkins MD Work Phone: [facility] ED Comment on above: Pilonidal cyst (Prim romero Dx) Start: 11-21-2016 End: 11-26-2016 Ambulatory Juan Ramon Ctraúl Facility:[facility] Procedures Date Procedure Procedure Detail Performing Clinician Start: 08-10-2024 GLUCOSE POCT GLUCOMETERS Mendez Pablo Cardoso DO Work Phone: Start: 08-10-2024 Plain chest X-ray Yi Mcneal MEDICAL DOSIMETRIST Work Phone: Start: 08-10-2024 Neurostimulation of cranial nerve Loreto Mcneal MEDICAL DOSIMETRIST Work Phone: Start: 08-10-2024 GLUCOSE POCT GLUCOMETERS Mendez Pablo Cardoso DO Work Phone: Start: 08-04-2024 Gluc bld gluc mntr d ev cleared fda spec home use Cleo Zambrano MD Work Phone: Start: 07-16-2024 Urnls dip stick/tabl et reagent auto microscopy Prieto CALVO-C Work Phone: Start: 07-16-2024 End: 07-16-2024 Radex spine lumbosacral 2/3 views Prieto CALVO-Terrell Work Phone: Start: 06-30-2024 DIRECTOR OF COMPENSATION INSERTION/REMOVA L OF CONTRACEPTIVE CAPSULE Roel Shirlene DO Work Phone: Start: 05-27-2024 MM TOMOSYNTHESIS SCREENING BI Roel Shirlene DO Work Phone: Start: [...] 03-09-2024 Streptococcus pyogen es culture Rory Driver ENGINEERING MECHANIC-BC Work Phone: Start: 01-13-2024 Urinalysis microscopic only Lisette J Junior DO Work Phone: Start: 01-13-2024 Urnls dip stick/tabl et rgnt auto w/o microscopy Lisette J Junior DO Work Phone: Start: 01-13-2024 Ecg routine ecg w/le ast 12 lds w/i&r Lisette J Junior DO Work Phone: Start: 01-13-2024 Comprehensive metabolic panel Lisette J Junior DO Work Phone: Start: 05-25-2023 Microscopic observat ion [Identifier] in Cervix by Cyto stain Deepika Robledo MD Work Phone: Start: 04-20-2023 Ct cervical spine w/ o contrast material Precious Urbina MEDICAL DOSIMETRIST - DRY WALL APPLICATOR Work Phone: Start: 04-20-2023 Ct head/brain w/o co ntrast material Precious Urbina MEDICAL DOSIMETRIST - DRY WALL APPLICATOR Work Phone: Start: 03-16-2023 Mammography Brittany yoo CROTCH BREAKER Work Phone: Start: 05-02-2022 Microalbumin [Mass/v olume] in Urine by Test strip Patricia Clay RN Start: 05-02-2020 Adult depression scr eening assessment Argenis Storm RN Start: 08-30-2016 Cholecystectomy YUE PARISH Start: 01-03-2013 nasal surgery YUE ALVARENGA RS Tonsillectomy YUE GRANADO Plan of Treatment Date Care Activity Detail Author Start: 09-03-2031 DTaP,Tdap and Td Vaccines (2 - Td or Tdap) DTaP,Tdap and Td Vaccines (2 - Td or Tdap) [facility] Start: 05-20-2027 Screening for malignant neoplasm of cervix [facility] Start: 05-24-2026 Screening for malignant neoplasm of cervix Pap Smear [facility] Start: 08-18-2025 Adult BMI Screening Adult BMI Screening [facility] Start: 08-18-2025 End: 08-18-2025 Patient encounter procedure 08/18/2025 2:00 PM EDT Office Visit [facility] [place] [address] [place] [address] Mendez Cardoso DO [address] [place] [address] [facility] [place] Start: 08-18-2025 Tobacco Screening Tobacco Screening [facility] Start: 05-31-2025 End: 05-31-2025 Patient encounter procedure [facility] Start: 05-27-2025 Screening for malignant neoplasm of breast Mammogram [facility] Start: 03-16-2025 Screening for malignant neoplasm of breast Breast cancer screen [facility] Start: 12-01-2024 End: 12-01-2024 Patient encounter procedure 12/01/2024 11:00 AM EDT Office Visit [facility] [address] [place] [address] Cleo Zambrano MD [address] [place] [address] [facility] Start: 11-10-2024 End: 11-10-2024 Patient encounter procedure 11/10/2024 11:30 AM EDT Office Visit [facility] [address] [place] [phone] Karen Cotter, MEDICAL DOSIMETRIST - DRY WALL APPLICATOR [address] [facility] [address] [place] [phone] 1 year KUB [facility] Part [facility] Comment on above: 1 year [facility] Start: 10-31-2024 Influenza vaccination [facility] Start: 10-07-2024 Adult BMI Screening Adult BMI Screening [facility] Start: 10-07-2024 Tobacco Screening Tobacco Screening [facility] Start: 09-26-2024 End: 09-26-2024 Patient encounter procedure 09/26/2024 2:20 PM EDT Office Visit [facility] [address] [place] [phone] Brittany Neville NP [address] [place], [place] [facility] Start: 08-18-2024 End: 08-18-2024 Patient encounter procedure 08/18/2024 9:45 AM EDT Office Visit [facility] [place] [address] [place] [phone] Mendez Cardoso DO [address] [place] [address] [facility] Start: 08-10-2024 [facility] Start: 08-10-2024 [facility] Start: 08-04-2024 End: 08-04-2024 Patient encounter procedure 08/04/2024 10:30 AM EDT Office Visit [facility] [address] [place] [phone] Cleo Zambrano MD [address] [place] [address] [facility] Start: 08-03-2024 End: 08-03-2024 Patient encounter procedure 08/03/2024 8:40 AM EDT Office Visit [facility] [address] [place] [address] Brittany Neville NP [address] [place], [place] [facility] Start: 08-02-2024 End: 08-02-2025 XR Humerus - left Views XR humerus left Imaging Routine Nexplanon removal Expected: 08/02/2024, Expires: 08/02/2025 [facility] Work Phone: Comment on above: Expected: 08/02/2024, Expires: Start: 06-13-2024 End: 06-13-2024 Patient encounter procedure 06/13/2024 9:45 AM EDT Office Visit [facility] [place] [address] [place] [phone] Mendez Cardoso DO [address] [place] [address] Arrived [facility] Comment on above: Arrived Start: 06-10-2024 End: 06-10-2024 Patient encounter procedure 06/10/2024 10:45 AM EDT Office Visit [facility] [address] [place] [phone] Mendez Cardoso, [address] [place] [place] [address] [facility] Start: 06-01-2024 Adult BMI Screening Adult BMI Screening [facility] Start: 05-26-2024 End: 07-26-2025 MG Breast - bilateral Screening Bilateral screening mammogram Imaging Routine Breast cancer screening by mammogram Expected: 05/26/2024 (Approximate), Expires: 07/26/2025 [facility] Work Phone: Comment on above: Expected: 05/26/2024 (Approximate), Expi res: 07/26/2025 Start: 05-26-2024 End: 05-26-2024 Patient encounter procedure 05/26/2024 11:00 AM EDT Office Visit [facility] [address] [place] [phone] Roel Garber DO [address] [place], [place] [phone] [facility] Start: 05-04-2024 End: 05-04-2024 Patient encounter procedure 05/04/2024 8:20 AM EST Office Visit [facility] [address] [place] [phone] Brittany Neville NP [address] [place], [place] [facility] Start: 04-28-2024 Adult BMI Screening Adult BMI Screening [facility] Start: 04-28-2024 Tobacco Screening Tobacco Screening [facility] Start: 04-28-2024 End: 04-28-2024 Patient encounter procedure 04/28/2024 10:30 AM EST Office Visit [facility] [place] [address] [place] [address] Mendez Cardoso DO [address] [place] [address] [facility] [place] Start: 04-25-2024 End: 04-25-2024 Patient encounter procedure 04/25/2024 9:00 AM EST Office Visit [facility] [place] [address] [address] [place] [address] Brittany Neville, JO ANN [address] [place] [address] [facility] Start: 04-18-2024 End: 04-18-2025 C-peptide C-peptide Lab Routine Hormone imbalance Hormone disorder Expected: 04/18/2024 (Approximate), Expires: 04/18/2025 [facility] Comment on above: Expected: 04/18/2024 [...] Hormone disorder Expected: 04/18/2024 (Approximate), Expires: 04/18/2025 [facility] Comment on above: Expected: 04/18/2024 [...] Hormone disorder Expected: 04/18/2024 (Approximate), Expires: 04/18/2025 [facility] Comment on above: Expected: 04/18/2024 (Approximate), Expi res: 04/18/2025 Start: 04-18-2024 End: 04-18-2025 Thyrotropin [Units/volume] in Serum or Plasma [facility] Comment on above: Ordered: 04/18/2024 Expected: 04/18/2024 (Approximate), Expires: 04/18/2025 Start: 04-18-2024 End: 04-18-2024 Patient encounter procedure 04/18/2024 10:50 AM EST Office Visit [facility] [address] [place] [phone] Roel Garber, DO [address] [place], [place] [phone] [facility] Start: 04-07-2024 End: 04-07-2025 25-hydroxyvitamin D3 [Mass/volume] in Serum or Plasma Vitamin D 25 hydroxy Total Lab Routine 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, unspecified whether jail insulin use ([facility]/HCC) Expected: 04/07/2024 (Approximate), Expires: 04/07/2025 [facility] Work Phone: Comment on above: Expected: 04/07/2024 (Approximate), Expi res: 04/07/2025 Start: 04-07-2024 End: 04-07-2025 Lipid 1996 panel - Serum or Plasma Lipid panel Lab Routine 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, unspecified whether jail insulin use (CMS/HCC) Expected: 04/07/2024 (Approximate), Expires: 04/07/2025 [facility] Comment on above: Expected: 04/07/2024 (Approximate), Expi res: 04/07/2025 Start: 04-07-2024 End: 04-07-2025 Microalbumin/Creatinine panel in random Urine Microalbumin / creatinine urine ratio Lab Routine 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, unspecified whether termite helper insulin use ([facility]) Expected: 04/07/2024 (Approximate), Expires: 04/07/2025 [facility] Comment on above: Expected: 04/07/2024 (Approximate), Expi res: 04/07/2025 Start: 04-07-2024 End: 04-07-2025 Renal function panel Renal function panel Lab Routine 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, unspecified whether termite helper insulin use ([facility]) Expected: 04/07/2024 (Approximate), Expires: 04/07/2025 [facility] Comment on above: Expected: 04/07/2024 (Approximate), Expi res: 04/07/2025 Start: 03-24-2024 End: 03-24-2024 Patient encounter procedure 03/24/2024 3:00 PM EST Office Visit [facility] [address] [phone] Brittany Neville NP [address] [facility] [address] [place] [address] [facility] [address] Start: 03-17-2024 End: 03-17-2024 Patient encounter procedure 03/17/2024 9:20 AM EST Office Visit [facility] [address] [place] [address] Cleo Zambrano MD [address] [place] [address] [facility] Start: 03-16-2024 Adult BMI Screening Adult BMI Screening [facility] Start: 03-16-2024 Screening for malignant neoplasm of breast Mammogram [facility] Start: 03-11-2024 End: 03-11-2024 Patient encounter procedure 03/11/2024 10:00 AM EST Office Visit [facility] [place] [address] [place] [address] Mendez Cardoso DO [address] [place] [address] [facility] [place] Start: 03-09-2024 Group A Streptococcus Culture Group A Streptococcus Culture [facility] Start: 02-19-2024 End: 02-19-2024 Patient encounter procedure 02/19/2024 2:00 PM EST Office Visit [facility] [place] [address] [place] [address] Mendez Cardoso DO [address] [facility] [place] [address] [facility] [place] Start: 02-16-2024 End: 02-16-2024 Patient encounter procedure 02/16/2024 3:40 PM EST [facility] [address] [place] [phone] Brittany Neville NP [address] [place], [place] [facility] [address] Start: 02-09-2024 End: 02-09-2024 Patient encounter procedure 02/09/2024 11:15 AM EST Appointment [facility] Physical Therapy [address] [place] [phone] Tamar Silveira PT dry needling [facility] Comment on above: dry needling Start: 02-08-2024 End: 02-08-2024 Patient encounter procedure 02/08/2024 1:45 PM EST Appointment [facility] [address] [place] [address] Ana Paula Ingram MD [address] [facility] [facility] [place] [address] [facility] Start: 01-30-2024 Adult BMI Screening Adult BMI Screening [facility] Start: 01-30-2024 Tobacco Screening Tobacco Screening [facility] Start: 01-26-2024 End: 01-26-2024 Patient encounter procedure 01/26/2024 8:00 AM EST Appointment [facility] Physical Therapy [address] [place] [phone] Tamar Silveira, PT dry needling [facility] Therapy Comment on above: dry needling Start: 01-13-2024 End: 01-13-2024 Patient encounter procedure 01/13/2024 8:15 AM EST Office Visit [facility] [address] [facility] [address] [place] [address] Georges [place], PA-C [address] [facility] [address] [place] [address] incontinence [facility] Comment on above: incontinence Start: 12-29-2023 End: 12-29-2023 Patient encounter procedure 12/29/2023 9:00 AM EDT Appointment [facility] Physical Therapy [address] [place], [place] [phone] Tamar Silveira, PT NEEDLING [facility] Physical Therapy Comment on above: NEEDLING Start: 12-15-2023 End: 12-15-2023 Patient encounter procedure 12/15/2023 9:00 AM EDT Appointment [facility] Physical Therapy [address] [place] [phone] Tamar Silveira, PT NEEDLING [facility] Physical Therapy Comment on above: NEEDLING Start: 12-01-2023 End: 12-01-2023 Patient encounter procedure 12/01/2023 9:45 AM EDT Appointment [facility] [address] [place] [phone] Tamar Silveira, PT [place] [facility] Physical Therapy Comment on above: NEEDLING Start: 11-01-2023 Influenza vaccination [facility] Start: 10-08-2023 End: 10-08-2023 Patient encounter procedure 10/08/2023 9:00 AM EDT Office Visit [facility] [address] [place] [address] Dwayne Khoury MD [address], [address] [phone] [facility] Start: 10-01-2023 Influenza vaccination Flu vaccine (#1) [facility] Start: 2023 End: 2023 Patient encounter procedure 2023 2:00 PM EDT Office Visit [facility] [address] [place] [phone] Gaurav Sellers, PA [address] [place], [place] [phone] [facility] Start: 09-01-2023 End: 09-01-2023 Patient encounter procedure 09/01/2023 10:30 AM EDT Appointment [facility] Physical Therapy [address] [place], [place] [phone] Osito Rowan [facility] Start: 08-26-2023 End: 08-26-2023 Patient encounter procedure 08/26/2023 2:30 PM EDT Appointment [facility] [address] [place], [place] [phone] Kofi Villegas, PT [facility] Start: 08-18-2023 End: 08-18-2023 Patient encounter procedure 08/18/2023 9:45 AM EDT Appointment [facility] Therapy [address] [place], [place] [phone] Osito Rowan [facility] Start: 08-11-2023 End: 08-11-2023 Patient encounter procedure 08/11/2023 1:15 PM EDT Appointment [facility] Physical Therapy [address] [place], [place] [phone] Jan Olmstead, PT DRY [place]LING [facility] Physical Therapy Comment on above: DRY [place] Start: 08-04-2023 End: 08-04-2023 Patient encounter procedure 08/04/2023 4:15 PM EDT Appointment [facility] Physical Therapy [address] [place], [place] [phone] Osito Rowan [facility] Start: 06-03-2023 End: 06-03-2023 Patient encounter procedure 06/03/2023 3:30 PM EDT Appointment [facility] Therapy [address] [place] [phone] Osito Rowan [facility] Start: 06-02-2023 End: 06-02-2023 Patient encounter procedure [facility] Therapy Comment on above: DRY NEEDLING- dont move coordinates with son's appt Start: 05-23-2023 Hepatitis B vaccine (3 of 3 - Hep B Twinrix 3-dose series) Hepatitis B vaccine (3 of 3 - Hep B Twinrix 3-dose series) [facility] Start: 05-20-2023 End: 05-20-2023 Patient encounter procedure 05/20/2023 3:15 PM EDT Appointment [facility] Therapy [address] [place] [phone] Rojas Altamirano PTA [facility] Start: 05-19-2023 End: 05-19-2023 Patient encounter procedure 05/19/2023 12:45 PM EDT Appointment [facility] [address] [place] [phone] Rebecca Skinner PT DRY NEEDLING- dont move coordinates with son's apptDRY NEEDLING [facility] Physical Therapy Comment on above: DRY NEEDLING- dont move coordinates with son's apptDRY NEEDLING Start: 05-05-2023 End: 05-05-2023 Patient encounter procedure [facility] Therapy Comment on above: DRY NEEDLING DRY NEEDLING- dont m ove coordinates with son's appt Start: 05-03-2023 Urine screening for protein Urine Microalbumin [facility] Start: 04-28-2023 End: 04-28-2023 Patient encounter procedure 04/28/2023 10:45 AM EST Office Visit [facility] [address] [place] [phone] Gaurav Sellers, UMESH [address], [address] [place], [place] [phone] [facility] Start: 04-21-2023 End: 04-21-2023 Patient encounter procedure [facility] Therapy Comment on above: DRY NEEDLING DRY NEEDLING- jd gibson coordinates with son's appt Start: 04-07-2023 End: 04-07-2023 Patient encounter procedure 04/07/2023 2:15 PM EST Appointment [facility] Physical Therapy [address] [place], [place] [phone] Rebecca Skinner, [place] DRY NEEDLING [facility] Physical Therapy Comment on above: DRY NEEDLING Start: 03-27-2023 End: 03-27-2023 Admission to same day surgery center 03/27/2023 1:27 PM EST - 03/27/2023 1:33 PM EST Surgery [facility] [address] [place] [phone] Pete Silver MD [address] [place] [address] INJECTION BLOCK SACROILIAC JOINT [51135 (CPT )] [facility] Comment on above: INJECTION BLOCK SACROILIAC JOINT [85057 (CPT )] Start: 03-27-2023 End: 03-27-2023 Inject si joint arthrgrphy&/anes/steroid w/monika INJECTION BLOCK SACROILIAC JOINT Disorder of sacrum 03/27/2023 1:27 PM EST [facility] Start: 03-27-2023 Subsequent hospital visit by physician 03/27/2023 1:27 PM EST Hospital Encounter [facility] [address] [place] [phone] Pete Silver MD [address] [place], [place] [phone] [facility] Start: 03-24-2023 End: 03-24-2023 Patient encounter procedure 03/24/2023 2:15 PM EST Appointment [facility] Therapy [address] [place] [phone] Rebecca Skinner, [place] DRY NEEDLING [facility] Physical Therapy Comment on above: DRY NEEDLING Start: 03-19-2023 [facility] Start: 03-16-2023 End: 03-16-2023 Patient encounter procedure 03/16/2023 11:45 AM EST Appointment [facility] [address] [place] [address] [facility] Start: 03-10-2023 End: 03-10-2023 Patient encounter procedure 03/10/2023 2:30 PM EST Appointment [facility] [address] [place] [phone] Rebecca Skinner, [place] [facility] Start: 09-30-2022 Influenza vaccination Flu vaccine (#1) [facility] Start: 10-31-2021 Influenza vaccination Flu vaccine (#1) [facility] Start: 09-03-2021 DTaP,Tdap and Td Vaccines (1 - Tdap) DTaP,Tdap and Td Vaccines (1 - Tdap) [facility] Start: 09-03-2021 DTaP/Tdap/Td vaccine (1 - Tdap) DTaP/Tdap/Td vaccine (1 - Tdap) [facility] Start: 05-02-2021 Depression Screening Depression Screening [facility] Start: 2020 Lipid panel Lipids [facility] Start: 01-04-2020 Diabetic foot examination Diabetic Foot Exam [facility] Start: 09-25-2015 Diabetes screen Diabetes screen [facility] Start: 2010 Screening for malignant neoplasm of cervix [facility] Start: 2001 Screening for malignant neoplasm of cervix Pap smear [facility] Start: 09-25-1999 DTaP/Tdap/Td vaccine (1 - Tdap) DTaP/Tdap/Td vaccine (1 - Tdap) [facility] Start: 1998 Adult BMI Follow Up Plan Adult BMI Follow Up Plan [facility] Start: 1998 Hepatitis C screening Hepatitis [facility] Start: 09-25-1995 HIV screening HIV screen [facility] Start: 1993 Varicella vaccine (1 of 2 - 13+ 2-dose series) Varicella vaccine (1 of 2 - 13+ 2-dose series) [facility] Start: 1992 Depression Screen Depression Screen [facility] Start: 1992 Depression Screening Depression Screening [facility] Start: 1990 Lipid panel Lipids [facility] Start: 1981 Varicella vaccine (1 of 2 - 2-dose childhood series) Varicella vaccine (1 of 2 - 2-dose childhood series) [facility] Start: 03-27-1981 COVID-19 Vaccine (#1) COVID-19 Vaccine (#1) [facility] Start: 1980 Glaucoma screening Diabetic Ophthalmology Exam [facility] Start: 1980 Hepatitis B vaccine (1 of 3 - 3-dose series) Hepatitis B vaccine (1 of 3 - 3-dose series) [facility] DHEA-sulfate DHEA-sulfate Lab Routine Hormone imbalance Hormone disorder Ordered: 04/18/2024 [facility] Comment on above: Ordered: 04/18/2024 EKG 12 Lead EKG 12 Lead ECG Routine 01/13/2024 2:59 PM EST [facility] Estradiol Estradiol Lab Ro utine Hormone imbalance Hormone disorder Ordered: 04/18/2024 [facility] Work Phone: Comment on above: Ordered: 04/18/2024 Estrone Estrone Lab Rout ine Hormone imbalance Hormone disorder Ordered: 04/18/2024 [facility] Comment on above: Ordered: 04/18/2024 Ferritin [Mass/volum e] in Serum or Plasma Ferritin Lab Routine Hormone imbalance Hormone disorder Ordered: 04/18/2024 [facility] Comment on above: Ordered: 04/18/2024 Hemoglobin A1c/Hemoglobin.total in Blood Hemoglobin A1c Lab Routine Hormone imbalance Hormone disorder Ordered: 04/18/2024 [facility] Comment on above: Ordered: 04/18/2024 Inject si joint arthrgrphy&/anes/steroid w/monika INJECTION BLOCK SACROILIAC JOINT Disorder of sacrum [facility] Njx dx/ther agt pvrt facet jt lmbr/sac 1 level INJECTION BLOCK NERVE MEDIAL BRANCH Lumbosacral spondylosis without myelopathy [facility] Patient Education Know your Meds [facility] Work Phone: Patient referral [facility] Work Phone: Progesterone Progesterone Lab Routine Hormone imbalance Hormone disorder Ordered: 04/18/2024 [facility] Comment on above: Ordered: 04/18/2024 Sex hormone binding globulin Sex hormone binding globulin Lab Routine Hormone imbalance Hormone disorder Ordered: 04/18/2024 [facility] Comment on above: Ordered: 04/18/2024 Streptococcus pyogen es [Presence] in Unspecified specimen by Organism specific culture [facility] T3, reverse T3, reverse Lab Routine Hormone imbalance Hormone disorder Ordered: 04/18/2024 [facility] Comment on above: Ordered: 04/18/2024 TESTOSTERONE, FREE TESTOSTERONE, FREE Lab Routine Hormone imbalance Hormone disorder Ordered: 04/18/2024 [facility] Comment on above: Ordered: 04/18/2024 Testosterone, free, total Testos terone, free, total Lab Routine Hormone imbalance Hormone disorder Ordered: 04/18/2024 [facility] Comment on above: Ordered: 04/18/2024 THIN PREP TIS PAP AN D HR HPV DNA THIN PREP TIS PAP AND HR HPV DNA Pathology and Cytology Routine Well woman exam with routine gynecological exam Ordered: 05/26/2024 [facility] Comment on above: Ordered: 05/26/2024 Thyroid peroxidase antibody Thyroid peroxidase antibody Lab Routine Hormone imbalance Hormone disorder Ordered: 04/18/2024 [facility] Comment on above: Ordered: 04/18/2024 Thyroxine (T4) free [Mass/volume] in Serum or Plasma T4, free Lab Routine Hormone imbalance Hormone disorder Ordered: 04/18/2024 [facility] Comment on above: Ordered: 04/18/2024 Triiodothyronine (T3 ) Free [Mass/volume] in Serum or Plasma T3, free Lab Routine Hormone imbalance Hormone disorder Ordered: 04/18/2024 [facility] Comment on above: Ordered: 04/18/2024 Vitamin D 1,25 dihydroxy Vitamin D 1,25 dihydroxy Lab Routine Hormone imbalance Hormone disorder Ordered: 04/18/2024 [facility] Comment on above: Ordered: 04/18/2024 Immunizations Immunization Date Immunization Notes Care Provider Fa cili 12-07-2023 influenza, seasonal, injectable, preservative free Paula Sanderson MD Work Phone: [facility] 12-07-2023 influenza virus vaccine, unspecified formulation Mendez Cardoso DO Work Phone: [facility] 05-25-2023 hepatitis A and hepatitis B vaccine Paula Sanderson MD Work Phone: [facility] 12-22-2022 hepatitis A and hepatitis B vaccine Paula Sanderson MD Work Phone: [facility] 12-22-2022 Seasonal, quadrivalent, recombinant, injectable influenza vaccine, preservative free Paula Sanderson MD Work Phone: [facility] 12-22-2022 influenza virus vaccine, unspecified formulation Deepika Robledo MD Work Phone: [facility] 06-23-2022 hepatitis A and hepatitis B vaccine Paula Sanderson MD Work Phone: [facility] 02-07-2022 Pneumococcal Conjuga te PCV 20 Paula Sanderson MD Work Phone: [facility] 12-23-2021 influenza, injectabl e, quadrivalent, preservative free Paula Sanderson MD Work Phone: [facility] 09-02-2021 TD(adult) unspecifie d formulation Paula Sanderson MD Work Phone: [facility] 09-02-2021 tetanus toxoid, reduced diphtheria toxoid, and acellular pertussis vaccine, adsorbed Mendez Cardoso DO Work Phone: [facility] 12-24-2020 influenza, injectabl e, quadrivalent, preservative free Paula Sanderson MD Work Phone: [facility] 12-19-2019 influenza, injectabl e, quadrivalent, preservative free Paula Sanderson MD Work Phone: [facility] 12-19-2018 influenza, injectabl e, quadrivalent, preservative free Argenis Storm RN [facility] 12-02-2017 influenza, injectabl e, quadrivalent, preservative free Argenis Storm RN [facility] 12-02-2017 pneumococcal conjuga te vaccine, 13 valent Argenis Storm RN [facility] 10-10-2016 influenza virus vaccine, unspecified formulation Argenis Storm RN [facility] 10-10-2016 influenza, seasonal, injectable, preservative free Paula Sanderson MD Work Phone: [facility] 12-19-2013 influenza virus vaccine, live, attenuated, for intranasal use Argenis Storm RN [facility] 12-03-2012 influenza virus vaccine, whole virus Argenis Storm RN [facility] 12-29-2011 influenza virus vaccine, whole virus Argenis Storm RN [facility] 12-23-2010 influenza virus vaccine, whole virus Argenis Storm RN [facility] 12-18-2008 influenza virus vaccine, whole virus Argenis Storm [facility] Payers Date Payer Category Payer Self-pay [id number] 2022 Unknown 2013 Medicaid (Managed Care) [employer] [id number] 2002 Medicaid [id number]. [id number] 2002 Medicaid [place] [employer] [id number] 1980 Unknown [id number] 2.16.840.1.289783.3.579.2. 593 1980 Unknown [id number] 2.16.840.1.350242.3.579.2. 593 1980 Unknown [id number] 2.16840.1.336971.3.579.2. 593 1980 Unknown [id number] 2.16.840.1.883596.3.579.2. 593 1980 Unknown [id number] 2.16.840.1.220700.3.579.2. 727 1980 Unknown [id number] 2.16.840.1.404020.3.579.2. 1286 1980 Unknown [id number] 2.16.840.1.119058.3.579.2. 128 1980 Unknown [id number] 2.16.840.1.812164.3.579.2. 1285 1980 Unknown [id number] 2.16.840.1.722826.3.579.2. 128 1980 Unknown [id number] 2.16.840.1.897761.3.579.2. 1285 1980 Unknown [id number] 2.16.840.1.550399.3.579.2. 128 1980 Unknown [id number] 2.16.840.1.024595.3.579.2. 1285 1980 Unknown [id number] 2.16840.1.866178.3.579.2. 1285 1980 Unknown [id number] 2.16840.1.349089.3.579.2. 1285 1980 Unknown [id number] 2.16840.1.993332.3.579.2. 1285 1980 Unknown [id number] 2.16840.1.122922.3.579.2. 1285 1980 Unknown [id number] 2.16840.1.382617.3.579.2. 1980 Unknown [id number] 2.840.1.988340.3.579.2. 1980 Unknown [id number] 2.840.1.109564.3.579.2. 1980 Unknown [id number] 2.840.1.552285.3.579.2. 1980 Unknown [id number] 2.840.1.648661.3.579.2. 1980 Unknown [id number] 2.840.1.489562.3.579.2. 1980 Unknown [id number] 2.840.1.827530.3.579.2. 1980 Unknown [id number] 2.840.1.642143.3.579.2. 1980 Unknown [id number] 2.16840.1.071885.3.579.2. 1980 Unknown [id number] 2.16840.1.465715.3.579.2. 1980 Unknown [id number] 2.16840.1.986804.3.579.2. 1980 Unknown [id number] 2.16840.1.485499.3.579.2. 1980 Unknown [id number] 2.16.840.1.017194.3.579.2. 1980 Unknown [id number] 2.16.840.1.512972.3.579.2. 1980 Unknown [id number] 2.16.840.1.056679.3.579.2. 1980 Unknown [id number] 2.16840.1.082682.3.579.2. 1980 Unknown [id number] 2.16840.1.948186.3.579.2. 1980 Unknown [id number] 2.840.1.179715.3.579.2. 1980 Unknown [id number] 2.16840.1.050718.3.579.2. 1980 Unknown [id number] 2.840.1.854062.3.579.2. 1980 Unknown [id number] 2.16840.1.659116.3.579.2. 173 1980 Unknown [id number] 2.840.1.480615.3.579.2. 1980 Unknown [id number] 2.16840.1.041087.3.579.2. 1980 Unknown [id number] 216840.1.877683.3.579.2. 1286 1980 Unknown [id number] 2.16840.1.351289.3.579.2. 1259 1980 Unknown [id number] 2.16840.1.706171.3.579.2. 9 1980 Unknown [id number] 2.16840.1.038468.3.579.2. 1259 1980 Unknown [id number] 2.16840.1.400766.3.579.2. 9 1980 Unknown [id number] 2.16.840.1.524989.3.579.2. 1258 1980 Unknown [id number] 2.16.840.1.335530.3.579.2. 1258 1980 Unknown [id number] 2.16.840.1.838447.3.579.2. 1258 1980 Unknown [id number] 2.16.840.1.531156.3.579.2. 1258 1980 Unknown [id number] 2.16.840.1.121133.3.579.2. 1258 1980 Unknown [id number] 2.16840.1.446305.3.579.2. 1258 1980 Unknown [id number] 2.16.840.1.694628.3.579.2. 1258 1980 Unknown [id number] 2.16840.1.219340.3.579.2. 1258 1959 Medicaid [id number] Unknown [id number] 2.16840.1.381231.3.579.2. 531 Unknown [id number] 2.16840.1.565054.3.579.2. 531 Unknown [id number] 2.16840.1.330144.3.579.2. 531 Social History Date Type Detail Facility Start: 09-02-2017 End: 01-28-2022 Tobacco smoking status [facility] Never smoked tobacco [facility] Start: 09-02-2017 End: 01-28-2022 Tobacco use and exposure Smokeless tobacco non-user [employer] Phone: Start: 10-11-2021 End: 08-19-2024 Alcohol intake Current non-drinker of alcohol (finding) [employer] Phone: Start: 1980 Sex Assigned At Not on file B ON [employer] Phone: Start: 10-01-2021 End: 10-22-2021 Exposure to SARS-CoV-2 (event) Not sure [facility] Work Phone: Start: 03-13-2020 End: 10-11-2021 Sex Assigned At [facility] Tobacco smoking status Never [facility] Start: 03-13-2020 End: 10-11-2021 [facility] of [facility] function [facility] Start: 1980 Sex Assigned At Female [facility] How often to you hav e a drink containing alcohol? Never [facility] Start: 02-11-2024 End: 09-01-2024 Alcoholic beverage intake Lifetime non-drinker (finding) [facility] Start: 03-11-2024 Sex Patient sex un known (finding) [facility] Start: 10-05-2014 End: 08-10-2024 Sex [facility] (finding) [facility] Procedure Code Equipment Code Equipment Original Text Equipment Identifier Dates [place] Sut 5.5mm 2 Ft Crkscr Fbrwr Shldr 3 Pk 14.7mm Strl Ea=Bill-Only Rpl [id number] Start: 05-15-2022 Use to test BLOO D SUGAR TWICE DAILY [id number] Start: 05-28-2020 Use to test BLOO D SUGAR TWICE DAILY, Diagnosis: E11.9 [id number] Start: 03-08-2020 Arthreximplant S ystem, Hand/Wrist Internal Brace Ligament Augmentation Repair ()[id number]( [id number] FDA Start: 08-18-2024 Arthrex Dx Swive lock Sl, With Forked Eyelet, 3.5 X 8.5mm ()[id number] FDA Start: 08-18-2024 Arthrex Dx Swive lock Sl, With Forked Eyelet, 3.5 X 8.5mm ()[id number]( [id number], [id number] FDA Start: 08-18-2024 0.062 harini Ashley [id number] Start: 08-18-2024 Goals Date Patient Goal Desired Activity /State Clinical Notes 10-22-2021 to 09-06-2024 Telephone Encounter - Rebecca Rees - 09/06/2024 8:32 AM EDTTelephone Encounter - Rebecca Rees - 09/06/2024 8:32 AM EDThais Cardoso DO - 09/01/2024 10:45 AM EDTDischarge Instructions Note Date & Type Note Facility 09-06-2024 Miscellaneous Notes SPOKE WITH PT Pt had left voicemail [...] [place] notes he would do the breast reduction then once she is healed address the panniculectomy. I also explained that there is about 8 people waiting ahead of her to be scheduled for their surgery. PT was understanding. documented in this encounter [facility] 09-06-2024 Telephone encounter Note SPOKE WITH PT Pt had left voicemail [...] [place] notes he would do the breast reduction then once she is healed address the panniculectomy. I also explained that there is about 8 people waiting ahead of her to be scheduled for their surgery. PT was understanding. [facility] 09-01-2024 History of Presen t illness Narrative Subjective Patient ID: Karma Banegas is a 43 y.o. female who presents for Post-op (Having problems with inspire) HPI This patient presents for recheck. She [...] in 1 year documented in this encounter [facility] 08-19-2024 History of Presen t illness Narrative Subjective Patient ID: Karma Banegas is a 43 y.o. female who presents for Post-op (Post op Inspire) HPI This patient presents postop inspire hypoglossal nerve stimulator implant. Review of Systems Patient states to be doing relatively well. Continues to be under the care regarding her right ankle and her shoulder. Managed in the areas of her recent incisions. Denies any drainage. Swelling is gradually improving. Objective ENT Physical Exam Both incisions are healing up quite nicely. Her tongue protrudes in a straight direction. No evidence of swelling. No evidence of facial weakness. Assessment/Plan Diagnoses and all orders for this visit: Obstructive sleep apnea Comments: Patient doing well after surgical intervention. Will follow up with her sleep medicine physician regarding activation of the inspire device. Intolerance of continuous positive airway pressure (CPAP) ventilation Comments: CurrentlyStable, follow up in 1 year documented in this encounter [facility] 08-04-2024 History of Presen t illness Narrative [...] yet. HPI: 06/2020 New patient sent from [facility] for uncontrolled diabetes. A1c of 9.3 in [...] deficit hyperactivity disorder (CMS/HCC) 04/27/2024 Bipolar disorder Body mass index (BMI) of 36.0 to 36.9 Cholecystitis 2017 Acute/chronic Chronic rhinitis Circadian rhythm sleep disorder, shift work type 04/27/2024 Controlled type 2 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, without long-term current use of insulin Disorder of sacrum 01/29/2023 Gastritis 2017 GERD (gastroesophageal reflux disease) Hyperlipemia ([facility]) Impulse control disorder ([facility]) 04/27/2024 Insertion of Nexplanon Iron deficiency anemia Kidney stones Macromastia 10/08/2023 Mass of upper outer quadrant of right breast 06/02/2023 Mixed bipolar affective disorder, moderate ([facility]) 04/27/2024 OCD (obsessive compulsive disorder) ([facility]) Open wound of toe without complication 03/10/2023 PTSD (post-traumatic stress disorder) ([facility]) Recurrent epistaxis Seasonal allergies Symptomatic mammary hypertrophy 06/02/2023 Type 2 diabetes mellitus with hyperglycemia ([facility] [facility] Umbilical hernia 2017 Vitamin D deficiency Past [...] 2 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, unspecified whether termite helper insulin use - POCT glycosylated hemoglobin (Hb [...] months (around 12/04/2024). documented in this encounter [facility] 08-02-2024 History of Presen t illness Narrative [...] and foot 03/10/2023 PTSD (post-traumatic stress disorder) ([facility]) 06/16/2018 Recurrent epistaxis 03/10/2023 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 11/10/2017 Well woman exam with routine gynecological exam 05/25/2023 Type 2 diabetes mellitus with hyperglycemia ([facility]) 02/11/2024 Vitamin D deficiency, unspecified 02/11/2024 Hyperlipidemia, unspecified ([facility]) 02/11/2024 Resolved Ambulatory Problems Diagnosis Date Noted [...] deficit hyperactivity disorder (CMS/HCC) 04/27/2024 Bipolar disorder Body mass index (BMI) [...] nursing note reviewed. Exam conducted with a generator worker present. Vitals: Estimated body mass index [...] Sonal Ball LPN on behalf of: Roel Shirlene, DO documented in this encounter [facility] 07-20-2024 Telephone encounter Note Received request for surgery clearance based on last visit for wrist/hand surgery. Please advise. [facility] 07-20-2024 Miscellaneous Notes Received request for surgery clearance based on last visit for wrist/hand surgery. Please advise. documented in this encounter [facility] 07-16-2024 Hospital Discharg e instructions Prieto Daniel PA-C - 07/16/2024 1:36 PM EDT May use ice and elevation for the ankle continue your ibuprofen and use of your Flexeril at home for muscle relaxant for your lower back would apply cold pack to the lower back for 20 minutes several times a day as well. Follow-up with your primary care and or onboarding specialist for these concerns. The following attachments cannot be sent through Care Everywhere.Back Pain (Singaporean)Arthritis (Singaporean)documented in this encounter [facility] 06-30-2024 History of Presen t illness [...] nursing note reviewed. Exam conducted with a generator worker present. Vitals: Estimated body mass index [...] Roel Garber DO documented in this encounter [facility] 06-20-2024 Note [facility] NOTE HV HPI: Karma Whitehead is a 43 y.o. [...] , with Irma's disease with complications of [place]. Mother has no significant family hx. Patient [...] to assess c (more content not included)... [facility] 06-13-2024 History of Presen t illness [...] as upcoming surgery documented in this encounter [facility] 06-02-2024 Evaluation note Diagnosis Onset Date Resolution Constipation acute June 02, 025 9:26am Fatty liver acute June 02 9:26am GERD (gastroesophageal reflux disease) acute June 02, 2024 9:26am IBS (irritable bowel syndrome) acute June 02, 2024 9:26am [facility] Work Phone: 1(515) 454-500604-03-2025 Evaluation note* Diagnosis Onset Date Resolution Status Admit Date Constipation acute June 02, 9:26am Fatty liver acute June 02 9:26am GERD (gastroesophageal reflu x disease) acute June 02, 2024 9:26am IBS (irritable bowel syndrome) acute June 02, 2024 9:26am GERD (gastroesophageal reflu x disease) acute August 08, 2024 1 :22pm Irritable bowel syndrome wit h constipation acute August 08, 2024 1 :22pm [facility] Work Phone: 1(545) 769-687103-27-2025 History of Present illness Narrative* Becky Silvestre LPN - 05/26/2024 11:00 AM EDT Reason for [...] Noted Acute cholecystitis 09/15/2016 Anemia 03/10/2023 Asthma ([facility]) 03/10/2023 Axillary lymphadenopathy 05/10/2020 Bilateral foot pain 03/10/2023 Cervical disc displacement 09/21/2017 Chronic rhinitis 03/10/2023 Disc displacement, lumbar 10/11/2018 Diverticulitis 03/10/2023 Intervertebral disc 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 12/02/2022 Lumbosacral spondylosis without myelopathy 07/22/2018 Obesity 03/10/2023 Primary osteoarthritis, left ankle and foot 03/10/2023 PTSD (post-traumatic stress disorder) ([facility]) 06/16/2018 Recurrent epistaxis 03/10/2023 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 ([facility]) 11/10/2017 Well woman exam with routine gynecological exam 05/25/2023 Type 2 diabetes mellitus with hyperglycemia ([facility]) 02/11/2024 Vitamin D deficiency, unspecified 02/11/2024 Hyperlipidemia, unspecified ([facility]) 02/11/2024 Resolved Ambulatory Problems Diagnosis Date Noted Hot flashes 03/10/2023 Postoperative abscess 09/28/2016 Open wound of toe without complication 03/10/2023 Disorder of sacrum 01/29/2023 Macromastia 10/08/2023 Mass of upper outer quadrant of right breast 06/02/2023 Symptomatic mammary hypertrophy 06/02/2023 Attention deficit hyperactivity disorder ([facility]) 04/27/2024 Circadian rhythm sleep disorder, shift work type 04/27/2024 Impulse control disorder ([facility]) 04/27/2024 Mixed bipolar affective disorder, moderate ([facility]) 04/27/2024 Past Medical History: Diagnosis Date Bipolar disorder ([facility]) Body mass index (BMI) of 36.0 to 36.9 Cholecystitis 2017 Controlled type 2 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, without long-term current use of insulin ([facility]) Gastritis 2017 GERD (gastroesophageal reflux disease) Hyperlipemia ([facility]) Insertion of Nexplanon Iron deficiency anemia Kidney stones OCD (obsessive compulsive disorder) ([facility]) Seasonal allergies Umbilical hernia 2017 Vitamin D deficiency HISTORY PAST MEDICAL HISTORY SOCIAL HISTORY Past Medical History: Diagnosis Date Anemia Attention deficit hyperactivity disorder ([facility]) 04/27/2024 Bipolar disorder ([facility]) Body mass index (BMI) of 36.0 to 36.9 Cholecystitis 2017 Acute/chronic Chronic rhinitis Circadian rhythm sleep disorder, shift work type 04/27/2024 Controlled type 2 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, without long-term current use of insulin ([facility]) Disorder of sacrum 01/29/2023 Gastritis 2017 GERD (gastroesophageal reflux disease) Hyperlipemia ([facility]) Impulse control disorder ([facility]) 04/27/2024 Insertion of Nexplanon Iron deficiency anemia Kidney stones Macromastia 10/08/2023 Mass of upper outer quadrant of right breast 06/02/2023 Mixed bipolar affective disorder, moderate ([facility]) 04/27/2024 OCD (obsessive compulsive disorder) ([facility]) Open wound of toe without complication 03/10/2023 PTSD (post-traumatic stress disorder) ([facility]) Recurrent epistaxis Seasonal allergies Symptomatic mammary hypertrophy 06/02/2023 Type 2 diabetes mellitus with hyperglycemia ([facility]) Umbilical hernia 2017 Vitamin D deficiency Social [...] nursing note reviewed. Exam conducted with a generator worker present. Vitals: Estimated body mass index [...] of: Roel Garber DO documented [facility] [id number] History of Present illness Narrative* Mendez Cardoso DO - 04/28/2024 10:30 AM EST Subjective [...] deficit hyperactivity disorder (CMS/HCC) 04/27/2024 Bipolar disorder ([facility]) Body mass index (BMI) of 36.0 to 36.9 Cholecystitis 2017 Acute/chronic Chronic rhinitis Circadian rhythm sleep disorder, shift work type 04/27/2024 Controlled type 2 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, without long-term current use of insulin ([facility]) Disorder of sacrum 01/29/2023 Gastritis 2017 GERD (gastroesophageal reflux disease) Hyperlipemia ([facility]) Impulse control disorder ([facility]) 04/27/2024 Insertion of Nexplanon Iron deficiency anemia Kidney stones Macromastia 10/08/2023 Mass of upper outer quadrant of right breast 06/02/2023 Mixed bipolar affective disorder, moderate ([facility]) 04/27/2024 OCD (obsessive compulsive disorder) ([facility]) Open wound of toe without complication 03/10/2023 PTSD (post-traumatic stress disorder) ([facility]) Recurrent epistaxis Seasonal allergies Symptomatic mammary hypertrophy 06/02/2023 Type 2 diabetes mellitus with hyperglycemia ([facility]) Umbilical hernia 2016 Vitamin D deficiency Current [...] Insecurity: No Food Insecurity (10/05/2023) Received from [facility] Hunger Screening Within the past [...] Patient encouraged to follow up with her cooler tender regarding the significant evidence of laryngopharyngeal reflux noted on endoscopy documented in this encounterSelect [facility]ty [id number] History of Present illness Narrative* Bela Ribeiro, JOHN - 04/18/2024 10:50 AM EST Reason for [...] and foot 03/10/2023 PTSD (post-traumatic stress disorder) ([facility]) 06/16/2018 Recurrent epistaxis 03/10/2023 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 ([facility]) 11/10/2017 Well woman exam with routine gynecological exam 05/25/2023 Type 2 diabetes mellitus with hyperglycemia ([facility]) 02/11/2024 Vitamin D deficiency, unspecified 02/11/2024 Hyperlipidemia, unspecified ([facility]) 02/11/2024 Resolved Ambulatory Problems Diagnosis Date Noted Hot flashes 03/10/2023 Postoperative abscess 09/28/2016 Open wound of toe without complication 03/10/2023 Disorder of sacrum 01/29/2023 Macromastia 10/08/2023 Mass of upper outer quadrant of right breast 06/02/2023 Symptomatic mammary hypertrophy 06/02/2023 Past Medical History: Diagnosis Date Bipolar disorder ([facility]) Body mass index (BMI) of 36.0 to 36.9 Cholecystitis 2017 Controlled type 2 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, without long-term current use of insulin ([facility]) Gastritis 2017 GERD (gastroesophageal reflux disease) Hyperlipemia ([facility]) Insertion of Nexplanon Iron deficiency anemia Kidney stones OCD (obsessive compulsive disorder) ([facility]) Seasonal allergies Umbilical hernia 2017 Vitamin D deficiency HISTORY PAST MEDICAL HISTORY SOCIAL HISTORY Past Medical History: Diagnosis Date Anemia Bipolar disorder ([facility]) Body mass index (BMI) of 36.0 to 36.9 Cholecystitis 2017 Acute/chronic Chronic rhinitis Controlled type 2 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, without long-term current use of insulin ([facility]) Disorder of sacrum 01/29/2023 Gastritis 2017 GERD (gastroesophageal reflux disease) Hyperlipemia ([facility]) Insertion of Nexplanon Iron deficiency anemia Kidney stones Macromastia 10/08/2023 Mass of upper outer quadrant of right breast 06/02/2023 OCD (obsessive compulsive disorder) ([facility]) Open wound of toe without complication 03/10/2023 PTSD (post-traumatic stress disorder) ([facility]) Recurrent epistaxis Seasonal allergies Symptomatic mammary hypertrophy 06/02/2023 Type 2 diabetes mellitus with hyperglycemia ([facility]) Umbilical hernia 2017 Vitamin D deficiency Social [...] of: Roel Garber DO documented in this [facility]02-12-2025 Telephone encounter Note* Telephone Encounter - Austin Gregorio - 04/13/2024 1:29 PM EST PA needed for mounjaro. Thank you! [facility] [id number] Miscellaneous Notes* Telephone Encounter - Austin Perkins - 04/13/2024 1:29 PM EST PA needed for mounjaro. Thank you! documented in this [facility]02-06-2025 History of Present illness Narrative* Cleo [...] yet. HPI: 06/2020 New patient sent from [facility] for uncontrolled diabetes. A1c of 9.3 in [...] History: Diagnosis Date Anemia Bipolar disorder ([facility]) Body mass index (BMI) of 36.0 to 36.9 Cholecystitis 2017 Acute/chronic Chronic rhinitis Controlled type 2 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, without long-term current use of insulin ([facility]) Disorder of sacrum 01/29/2023 Gastritis 2017 GERD (gastroesophageal reflux disease) Hyperlipemia ([facility]) Insertion of Nexplanon Iron deficiency anemia Kidney stones Macromastia 10/08/2023 Mass of upper outer quadrant of right breast 06/02/2023 OCD (obsessive compulsive disorder) ([facility]) Open wound of toe without complication 03/10/2023 PTSD (post-traumatic stress disorder) ([facility]) Recurrent epistaxis Seasonal allergies Symptomatic mammary hypertrophy 06/02/2023 Type 2 diabetes mellitus with hyperglycemia ([facility]) Umbilical hernia 2017 Vitamin D deficiency Past [...] 2 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, unspecified whether jail insulin use ([facility]) - POCT glycosylated hemoglobin (Hb A1C) docked [...] exercise reviewed with the patient Hyperlipemia, mixed ([facility]) Class 2 severe obesity due to excess calories with serious comorbidity and body mass index (BMI) of39.0 to 39.9 in adult ([facility]) Follow up in about 4 months (around 08/05/2024). documented in this encounterSelect Specialty [id number] Telephone encounter Note* Telephone Encounter - Austin Perkins - 02/16/2024 10:05 AM EST Pt would like ot know if you can try to get the ozempic approved again. She's gained 20lbs on trulicity. [facility] [id number] Miscellaneous Notes* Telephone Encounter - Austin Finneyarthy - 02/16/2024 10:05 AM EST Pt would like ot know if you can try to get the ozempic approved again. She's gained 20lbs on trulicity. documented in this [facility]12-10-2024 History of Present illness Narrative* Jan Olmstead, PT - 02/09/2024 11:15 AM EST [facility] Inpatient/Observation/Outpatient Rehabilitation Date: 02/09/2024 Patient Name: [...] Cert. DN Date: 02/09/2024 [facility] Discharge instructions* Discharge Instructions* Lisette Junior, - 01/13/2024 5:40 PM EST Increase your fluid intake. Follow-up with your doctor to discuss your medications especially the gabapentin and cyclobenzaprine which can certainly make you feel tired and groggy all the time. * Attachments The following attachments cannot be sent through Care Everywhere. * Dizziness ([place]aporean) [facility] encounter Note* Telephone Encounter - Filomena [...] believes that the device is MRI compatible. [facility] [id number] Miscellaneous Notes* Telephone Encounter - Filomena Evans [...] Inspire device. Her BMI is 35.96, will [place] allow this BMI Her HST is from 04/2022, does need this updated Will she be able to have MRIs If all of this is ok we will send for Inspire consult We will need to call her with an update documented in this encounterSelect Specialty [id number] Telephone encounter Note* Telephone Encounter - Brittany Neville NP - 11/30/2023 11:11 AM EDT Please call Dr. Brito office and ask the following questions in regards to Inspire device. Her BMI is 35.96, will [place] allow this BMI Her HST is from 04/2022, does need this updated Will she be able to have MRIs If all of this is ok we will send for Inspire consult We will need to call her with an update [facility] [id number] History of Present illness Narrative* Brittany Neville [...] History: Diagnosis Date Anemia Bipolar disorder ([facility]) Body mass index (BMI) of 36.0 to 36.9 Cholecystitis 2017 Acute/chronic Chronic rhinitis Controlled type 2 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, without long-term current use of insulin ([facility]) Gastritis 2017 GERD (gastroesophageal reflux disease) Hyperlipemia ([facility]) Insertion of Nexplanon Iron deficiency anemia Kidney stones OCD (obsessive compulsive disorder) ([facility]) Open wound of toe without complication 03/10/2023 PTSD (post-traumatic stress disorder) ([facility]) Recurrent epistaxis Seasonal allergies Umbilical hernia 2016 [...] She did switch to a provider in [place]. They did change her zanaflex and mobic [...] and see if BMI of 36 with Florec[place] is feasible for Inspire device, if it [...] to clinic: 3 months documented in this encounterSelect Specialty [id number] History of Present illness Narrative* Jan Olmstead, PT - 10/20/2023 9:45 AM EDT [facility] Outpatient Physical Therapy Daily Note Patient: Karma Whitehead : 1980 CSN #: [id number] Referring Physician: Shawna Mcfadden DO Date: 10/20/2023 Treatment Diagnosis: LBP, cervical spine pain Onset Date: 02/18/23 PT Insurance Information: [employer] [facility] Total # of Visits Approved: 32 Per [...] pt required further clarification. Post Treatment Pain: 07/09 Plan Plan Frequency: up to 4 visits, [...] the cervical area and her LB area.-met [facility] Goals Time Frame for [facility] Goals : 6 visits [facility] Goal 1: Pt will be independent and compliant with exercise while maintaining improved posture 50% of the time - not met [facility] Goal 2: Pt will be able to perform full cervical ROM without increase complaints of baseline pain with initiation to demonstrate imporved control of pain -NOT MET: continued cervical spine pain. [facility] Goal 3: Pt will report 40% improvement in overall complaints and improved tolerance to her job tasks - 40% improved. Long-Term Goal 4: Pt kvng UE strength will be 5/5 without increasing pain complaints to assist in tolerance of lifting and carrying -PARTIALLY MET 4+/5 grossly. Minutes Tracking: Time In: 944 Time Out: 1030 Minutes: 45 Timed Code Treatment Minutes: 43 Minutes Jan Olmstead PT, DPT, OCS, Cert. DN Date: 10/20/2023 [facility] [id number] History of Present illness Narrative* Dwayne Khoury MD - 10/08/2023 9:00 AM EDT [facility] [address] Office Dwayne Khoury MD, PhD Caryl Mao, MEDICAL DOSIMETRIST-DRY WALL APPLICATOR Dayan Harmon PA-C Plastic Surgery New Patient [...] of back/neck pain. She has Tried medications in cluding Ozempic and Victoza for weight loss however her Victoza is currently on back order. Patienthas tried therapies of or has been prescribed [...] support however she states it only comes incertain sizes which does not improve her neck [...] mass follow up Ultrasound was done in [place] the nodule was noted but seemed consistent with a lymph node. Breast size has remained the same with weight loss Family history is positive for breast disease and breast cancer in her maternal grandmother Did she have children did breast feed Past Medical History: Past Medical History: Diagnosis Date Anxiety Asthma Back pain Bipolar 1 disorder ([facility]) Breast disorder enlarged lymph nodes in both breast Carpal tunnel syndrome Chronic pain disorder Deep vein thrombosis ([facility]) blood clot in left [...] night 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 ([facility]) 11/10/2017 Visual impairment Past Surgical History: Past Surgical History: Procedure Laterality Date ANKLE SURGERY Left x2 ARTHROSCOPY SHOULDER WITH ROTATOR CUFF REPAIR Right 05/15/2022 Performed by Ana Paula Ingram MD at [facility] DEBRIDEMENT Right 05/15/2022 Performed by Ana Paula Ingram MD at [facility] DECOMPRESSION OF SUBACROMIAL SPACE WITH PARTIAL ACROMIOPLASTY Right 05/15/2022 Performed by Ana Paula Ingram MD at [facility] INJECTION BLOCK EPIDURAL STEROID LUMBAR/SACRAL: L 4/5 WU N/A 04/22/2021 Performed by Pete Silver MD at [facility] INJECTION BLOCK SACROILIAC JOINT Left 03/27/2023 Performed by Pete Silver MD at [facility] INJECTION CERVICAL OR THORACIC EPIDURAL BLOCK WITH STEROIDS: C67 WU N/A 01/29/2018 Performed by Pete Silver MD at [facility] INJECTION LUMBAR OR SACRAL EPIDURAL BLOCK WITH STEROIDS: L45 WU N/A 10/15/2018 Performed by Pete Silver MD at [facility] IN[facility]CTION MEDIAL BRANCH NERVE BLOCK: bilat L45 51 Bilateral 07/30/2018 Performed by Pete Silver MD at [facility] IN[facility] SPINE TRANSFORAMINAL: left C 5,6 Nroot Left 01/09/2023 Performed by Pete Silver MD at [facility] LAPAROSCOPIC CHOLECYSTECTOMY N/A 09/16/2016 Performed by Juan Ramon Jean MD at [facility] LIVER BIOPSY EMA PROCEDURE Right 05/15/2022 Performed by Ana Paula Ingram MD at [facility] NASAL SURGERY REPAIR HERNIA UMBILICAL 09/16/2016 Performed by Juan Ramon Jean MD at [facility] TONSILLECTOMY Allergies: Allergies Allergen Reactions Metformin [...] total) by mouth in the morning and 1tablet (500 mg total) before bedtime., Disp: , Rfl: B COMPLEX-VITAMIN B12 tablet, TAKE 1 TABLET BY MOUTH DAILY (Patient not taking: Reported on 04/02/2022), Disp: 30 tablet, Rfl: 5 blood sugar diagnostic (TRUE METRIX GLUCOSE TEST STRIP) strip, Use to test BLOOD SUGAR TWICE DAILY,Disp: 100 strip, Rfl: 5 blood-glucose meter (TRUE METRIX GLUCOSE METER) [facility] use to test BLOOD SUGAR TWICE DAILY, [...] (UNILET LANCET) 28 gauge [facility], Use to test BLOOD SUGAR TWICE DAILY, Diagnosis: E11.9, Disp:100 each, Rfl: 5 LATUDA 80 mg tablet, Take 1 tablet (80 mg total) by mouth daily with breakfast., Disp: , Rfl: lisdexamfetamine (VYVANSE) 70 mg capsule, 1 capsule in the morning, Disp: , Rfl: montelukast (SINGULAIR) 10 mg tablet, TAKE 1 TABLET BY MOUTH NIGHTLY (Patient not taking: Reported on 04/28/2023), Disp: 30 tablet, Rfl: 0 qxhsuibp-qvre-YW-calcium &mins (THERAGRAN-M) 9 mg iron-400 mcg tablet, Take 1 tablet by mouth in the morning., Disp: , Rfl: naproxen (NAPROSYN) 500 mg tablet, Take 1 tablet (500 mg total) by mouth in the morning and 1 tablet (500 mg total) in the evening. Take with meals. (Patient not taking: Reported on 04/28/2023), Disp:60 tablet, Rfl: 2 NON FORMULARY, Hair, Skin [...] 2 TABLETS per week) (Patient not taking: Reportedon 01/09/2023), Disp: , Rfl: 2 tiZANidine (ZANAFLEX) [...] on Sundays (Patient not taking: Reported on 04/28/2023),Disp: , Rfl: Review of Systems: Review of Systems neck pain, back pain, rashes of her pannus, breast and thighs.She complains of boils within her inner thighs [...] slightly larger than right. Ptosis grade 3 bilaterally,left slightly more ptotic than right. Contour pendulous [...] below. Healed port site scars. Significant diastasis vshernia. 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 Impression : No diagnosis found. [...] massage and time. We reviewed that biggest riskswith breast reduction surgery are scarring which can be difficult to predict, breast or nipple asymmetry, fat necrosis, nipple sensitivity and nipple healing issues. All her questions were answered. She was eager to proceed with surgery. We reviewed activity limitations postoperatively and that she should be able to to most things, butshould refrain from repetitive overhead activities, lifting/pushing/pulling anything [...] also discussed that breast size can change coordinator the years with weight loss and weight gain. She should not get fit or wear an underwire bra for approximately 3 months. Also discussed if indicated based on her age, she paola uld not have a screening mammogram for at [...] of shoulder surgery. She does have a historyof diabetes and recent A1c was 5.7 it [...] the accuracy and completeness of the aforementioned history,and I personally performed the clinical examination of the patient. I have established and discussed the course of treatment with the patient. Dwayne Khoury MD, PhD [facility] Total time spent was 30 minutes: Preparing to see the patient (e.g., review of tests) Obtaining and/or reviewing separately obtained history Performing a medically appropriate examination and/or evaluation Counseling and educating the patient/family/caregiver Ordering medications, tests, or procedures Referring and communicating with other health resident care director (not separately reported) Documenting clinical information in the electronic or other health record Independently interpreting results (not separately reported) and communicating results to the patient/family/caregiver Care coordination (not separately reported) Please note that portions of this note were generated using voice recognition [employer] dictation software. Although every effort was made to ensure the accuracy of this automated dollyman, some errors in dollyman may have occurred. documented in this encounterC[facility]07-[facility] History of Present illness Narrative* Filomena Raphael [...] at her next appt. documented in this encounterBON [facility]07-09-2024 Miscellaneous Notes* Telephone Encounter - Argenis Storm RN - 09/08/2023 2:28 PM EDT Patient is asking for an increase in the Cymbalta. She is currently taking 30 mg daily and states it is no longer giving her relief. Patient is also requesting work restrictions to not lift any more than 20 lbs. She works at [employer] and it is difficult for her to lift the pop and other items overhead. Patient did make an appointment for 09/24/23 to be re-evaluated for a lumbar MBB that was denied. She has completed PT and dry needling. * Telephone Encounter - UMESH Hodge - 09/08/2023 2:28 PM EDT Is she still on fluoxetine? * Telephone Encounter - Patricia Clay RN - 09/08/2023 2:28 PM EDT Patient was called and states that she is on 60 mg Fluoxetine. * Telephone Encounter - UMESH Hodge - 09/08/2023 2:28 PM EDT I am not willing to escalate cymbalta due to higher dose of fluoxetine. * Telephone Encounter - Patricia Clay RN - 09/08/2023 2:28 PM EDT Call placed to patient to inform her of provider's response and to inform her that a note has been written with work restrictions. Patient answered the phone but continued a conversation with someoneon her end of the phone. Will call back tomorrow. documented in this encounterC[facility]07-09-2024 Telephone encounter Note* Telephone Encounter - Argenis Storm RN - 09/08/2023 2:28 PM EDT Patient is asking for an increase in the Cymbalta. She is currently taking 30 mg daily and states it is no longer giving her relief. Patient is also requesting work restrictions to not lift any more than 20 lbs. She works at [employer] and it is difficult for her to lift the pop and other items overhead. Patient did make an appointment for 09/24/23 to be re-evaluated for a lumbar MBB that was denied. She has completed PT and dry needling. [facility]07-[facility] Telephone encounter Note* Telephone Encounter - UMESH Hodge - 09/08/2023 2:28 PM EDT Is she still on fluoxetine? [facility]07-[facility]24 Telephone encounter Note* Telephone Encounter - Patricia Clay RN - 09/08/2023 2:28 PM EDT Patient was called and states that she is on 60 mg Fluoxetine. [facility]07-09-2024 Telephone encounter Note* Telephone Encounter - UMESH Hodge - 09/08/2023 2:28 PM EDT I am not willing to escalate cymbalta due to higher dose of fluoxetine. [facility]07-09-2024 Telephone encounter Note* Telephone Encounter - Patricia Clay RN - 09/08/2023 2:28 PM EDT Call placed to patient to inform her of provider's response and to inform her that a note has been written with work restrictions. Patient answered the phone but continued a conversation with someoneon her end of the phone. Will call back tomorrow. [facility]06-26-[facility] History of Present illness Narrative* Kofi Villegas, PT - 08/26/2023 2:30 PM EDT [facility] Outpatient Physical Therapy Daily Note Patient: Karma Whitehead : 1980 CSN #: [id number] Referring Physician: Shawna Mcfadden DO Date: 08/26/2023 Diagnosis: Z76.89 - Persons encountering health services in other specified circumstances Treatment Diagnosis: pain in cervical and LB Onset Date: 02/18/23 PT Insurance Information: [employer] Total # of Visits Approved: 24 Per [...] the cervical area and her LB area.-met Long-Term Goals Time Frame for Long-Term Goals : 6 visits Long-Term Goal 1: Pt will be independent and compliant with exercise while maintaining improved posture 50% of the time. Long-Term Goal 2: Pt will be able to perform full cervical ROM without increase complaints of baseline pain with initiation to demonstrate imporved control of pain. [facility] Goal 3: Pt will report 40% improvement in overall complaints and improved tolerance to her job tasks. Minutes Tracking: Time In: 1430 Time Out: 1500 Minutes: 30 Timed Code Treatment Minutes: 29 Minutes Kofi Villegas, PT, DPT Date: 08/26/2023 documented in this encounterBON [facility]06-21-2024 History of Present illness Narrative* Filomena Raphael - 08/21/2023 10:45 AM EDT Physical Therapy Disregard the no show note on 08/17. This was added in error. * Jan Olmstead PT - 08/21/2023 10:45 AM EDT [facility] Outpatient Physical Therapy Daily Note Patient: Karma Whitehead : 1980 CSN #: [id number] Referring Physician: Shawna Mcfadden DO Date: 08/21/2023 Treatment Diagnosis: pain in cervical and LB Onset Date: 02/18/23 PT Insurance Information: [employer] [facility] Total # of Visits Approved: 24 Per [...] pt required further clarification. Post Treatment Pain: 10 Plan Plan Frequency: up to 4 visits, [...] the cervical area and her LB area. Long-Term Goals Time Frame for Long-Term Goals : 6 visits Long-Term Goal 1: Pt will be independent and compliant with exercise while maintaining improved posture 50% of the time. Long-Term Goal 2: Pt will be able to perform full cervical ROM without increase complaints of baseline pain with initiation to demonstrate imporved control of pain. Long-Term Goal 3: Pt will report 40% improvement in overall complaints and improved tolerance to her job tasks. Long-Term Goal 4: Pt kvng UE strength will be 5/5 without increasing pain complaints to assist in tolerance of lifting and carrying. Minutes Tracking: Time In: 1045 Time Out: 1116 Minutes: 31 Timed Code Treatment Minutes: 29 Minutes Jan Olmstead PT, DPT Date: 08/21/2023 documented in this encounterBON [facility]06-19-2024 Miscellaneous Notes* Telephone Encounter - Arcelia Corona CNA - 08/19/2023 4:44 PM EDT Karma left a voicemail requesting a refill and an increased dose for Cymbalta documented in this encounterC[facility]06-19-2024 Telephone encounter Note* Telephone Encounter - Arcelia Corona CNA - 08/19/2023 4:44 PM EDT Karma left a voicemail requesting a refill and an increased dose for Cymbalta [facility] History of Present illness Narrative* Jan Olmstead, PT - 08/11/2023 1:15 PM EDT [facility] Outpatient Physical Therapy Daily Note Patient: Karma Whitehead : 1980 CSN #: [id number] Referring Physician: Shawna Mcfadden DO Date: 08/11/2023 Diagnosis: Z76.89 - Persons encountering health services in other specified circumstances Treatment Diagnosis: pain in cervical and LB Onset Date: 02/18/23 PT Insurance Information: [employer] Plan Total # of Visits Approved: 24 Per Physician Order Total # of Visits to Date: 17 No Show: 0 Canceled Appointment: 0 08/28/23 Plan of Care/Recert Due Pre-Treatment Pain: 6 Subjective: Patient reports 6/10 cervical spine and [...] the cervical area and her LB area. Long-Term Goals Time Frame for [facility] [facility] Goals : 6 visits [employer] Goal 1: Pt will be independent and compliant with exercise while maintaining improved posture 50% of the time. [employer] Goal 2: Pt will be able to perform full cervical ROM without increase complaints of baseline pain with initiation to demonstrate imporved control of pain. [employer] Goal 3: Pt will report 40% improvement in overall complaints and improved tolerance to her job tasks. [employer] Goal 4: Pt kvng UE strength will be 5/5 without increasing pain complaints to assist in tolerance of lifting and carrying. Minutes Tracking: Time In: 1330 Time Out: 1400 Minutes: 30 Timed Code Treatment Minutes: 28 Minutes Jan Olmstead PT, DPT Date: 08/11/2023 documented in this encounterBON [facility]05-14-2024 History of Present illness Narrative* RavenelFilomena - 07/14/2023 11:15 AM EDT Physical Therapy [facility] Inpatient/Observation/Outpatient Rehabilitation Date: 07/14/2023 Patient Name: [...] does not require skilled services due to: Therapist/Social Secretary will attempt to see this patient, at our earliest opportunity. Filomena Raphael Date: 07/14/2023 documented in this encounterBON [facility]05-07-2024 Miscellaneous Notes* Telephone Encounter - Maty Fulton RN - 07/07/2023 9:10 AM EDT Pt is upset, she has not received any call about scheduling procedure. She requests update on insurance authorization re: MBB. Last seen 04/28/2023. Please call patient today with an update on insurance information. Patient is requesting to increase cymbalta 30 mg daily which is helping with neuropathy and tingling in bilateral hands. * Telephone Encounter - Alfredito William - 07/07/2023 9:10 AM EDT Contacted patient letting her know back when I put in for the appeal florecita had called me and informed me patient florecita had laps. Patient was sent a letter per florecita.Patient let me know that maricruzanitablanca is now valid ok to put back in for the procedure. Will be resubmitting for the procedure today. documented in this encounterC[facility]05-07-2024 Telephone encounter Note* Telephone Encounter - Maty Fulton RN - 07/07/2023 9:10 AM EDT Pt is upset, she has not received any call about scheduling procedure. She requests update on insurance authorization re: MBB. Last seen 04/28/2023. Please call patient today with an update on insurance information. Patient is requesting to increase cymbalta 30 mg daily which is helping with neuropathy and tingling in bilateral hands. Witel [id number] Telephone encounter Note* Telephone Encounter - Alfredito William - 07/07/2023 9:10 AM EDT Contacted patient letting her know back when I put in for the appeal florecita had called me and informed me patient florecita had laps. Patient was sent a letter per florecita.Patient let me know that tessa is now valid ok to put back in for the procedure. Will be resubmitting for the procedure today. [facility] [employer] [id number] History of Present illness Narrative* ADIA Albright - 06/02/2023 2:30 PM EDT Review of Systems Constitutional: Positive for fatigue. Gastrointestinal: Positive for blood in stool, constipation and diarrhea. Genitourinary: Positive for difficulty urinating. Musculoskeletal: Positive for back pain. Skin: Positive for rash. Neurological: Positive for weakness. Hematological: Bruises/bleeds easily. Psychiatric/Behavioral: Positive for sleep disturbance. The patient is nervous/anxious. * ADIA Albright - 06/02/2023 2:30 PM EDT nipple discharge * ADIA Albright - 06/02/2023 2:30 PM EDT Age menses began: 12 Age of menopause: no Menopausal symptoms (hot flashes, vaginal dryness, bloating): n/a How many pregnancies? 5 How many live births? 5 Age at first live ? 18 Use of hormone replacement therapy after menopause? no If yes: What kind? N/a How many years? N/a Current? N/a Year discontinued? N/a Are you of Ashkenazi Christianity decent? no Family history of cancer: relation [...] K - 42G Previous breast surgery: no * Deepika Robledo MD - 06/02/2023 2:30 PM EDT I had the pleasure of meeting Karma Banegas today. She is a very pleasant 42 y.o. year oldfemale who presents today for recommendations regarding a right breast mass. She states she has hada benign-appearing right upper outer quadrant mass on imaging in the past. She underwent additionalimaging after most recent mammogram and is here today to discuss recommendations. The areas asymptomatic to her. She denies any other changes to her breast. She denies other palpable mass, nipple discharge, skin changes, pruritus, or lymphadenopathy. I reviewed notes from her organic gardening teacher dated 05/05/2023, imaging including mammogram and ultrasounddated 03/16/2023 and 03/25/2023, history form dated 06/02/2023. Past Medical History Past Medical History: Diagnosis Date Anxiety Asthma Back pain Bipolar 1 disorder ([facility]) Breast disorder enlarged lymph nodes in both breast Carpal tunnel syndrome Chronic pain disorder Deep vein thrombosis ([facility]) blood clot in left [...] night 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 ([facility]) 11/10/2017 Visual impairment Past Surgical History Past Surgical History: Procedure Laterality Date ANKLE SURGERY Left x2 ARTHROSCOPY SHOULDER WITH ROTATOR CUFF REPAIR Right 05/15/2022 Performed by Ana Paula Ingram MD at [facility] DEBRIDEMENT Right 05/15/2022 Performed by Ana Paula Ingram MD at [facility] DECOMPRESSION OF SUBACROMIAL SPACE WITH PARTIAL ACROMIOPLASTY Right 05/15/2022 Performed by Ana Paula Ignram MD at [facility] INJECTION BLOCK EPIDURAL STEROID LUMBAR/SACRAL: L 4/5 WU N/A 04/22/2021 Performed by Pete Silver MD at [facility] INJECTION BLOCK SACROILIAC JOINT Left 03/27/2023 Performed by Pete Silver MD at [facility] CERVICAL OR THORACIC EPIDURAL BLOCK WITH STEROIDS: C67 WU N/A 01/29/2018 Performed by Pete Silver MD at [facility] LUMBAR OR SACRAL EPIDURAL BLOCK WITH STEROIDS: L45 WU N/A 10/15/2018 Performed by Pete Silver MD at [facility] MEDIAL BRANCH NERVE BLOCK: bilat L45 51 Bilateral 07/30/2018 Performed by Pete Silver MD at [facility] SPINE TRANSFORAMINAL: left C 5,6 Nroot Left 01/09/2023 Performed by Pete Silver MD at [facility] LAPAROSCOPIC CHOLECYSTECTOMY N/A 09/16/2016 Performed by Juan Ramon Jean MD at [facility] LIVER BIOPSY EMA PROCEDURE Right 05/15/2022 Performed by Ana Paula Ingram MD at [facility] NASAL SURGERY REPAIR HERNIA UMBILICAL 09/16/2016 Performed by Juan Ramon Jean MD at [facility] TONSILLECTOMY Family History Family History Problem [...] total) by mouth in the morning and 1tablet (500 mg total) before bedtime., Disp: , Rfl: B COMPLEX-VITAMIN B12 tablet, TAKE 1 TABLET BY MOUTH DAILY (Patient not taking: Reported on 04/02/2022), Disp: 30 tablet, Rfl: 5 blood sugar diagnostic (TRUE METRIX GLUCOSE TEST STRIP) strip, Use to test BLOOD SUGAR TWICE DAILY,Disp: 100 strip, Rfl: 5 blood-glucose meter (TRUE METRIX GLUCOSE METER) [facility], use to test BLOOD SUGAR TWICE DAILY, [...] (UNILET LANCET) 28 gauge [facility], Use to test BLOOD SUGAR TWICE DAILY, Diagnosis: E11.9, Disp:100 each, Rfl: 5 LATUDA 80 mg tablet, Take 1 tablet (80 mg total) by mouth daily with breakfast., Disp: , Rfl: lisdexamfetamine (VYVANSE) 70 mg capsule, 1 capsule in the morning, Disp: , Rfl: montelukast (SINGULAIR) 10 mg tablet, TAKE 1 TABLET BY MOUTH NIGHTLY (Patient not taking: Reported on 04/28/2023), Disp: 30 tablet, Rfl: 0 dcmfyofr-dedf-SG-calcium &mins (THERAGRAN-M) 9 mg iron-400 mcg tablet, Take 1 tablet by mouth in the morning., Disp: , Rfl: naproxen (NAPROSYN) 500 mg tablet, Take 1 tablet (500 mg total) by mouth in the morning and 1 tablet (500 mg total) in the evening. Take with meals. (Patient not taking: Reported on 04/28/2023), Disp:60 tablet, Rfl: 2 NON FORMULARY, Hair, Skin [...] 2 TABLETS per week) (Patient not taking: Reportedon 01/09/2023), Disp: , Rfl: 2 tiZANidine (ZANAFLEX) [...] on Sundays (Patient not taking: Reported on 04/28/2023),Disp: , Rfl: Allergies Allergies Allergen Reactions Metformin [...] a bilateral screening mammogram on 03/16/2023 through [facility]. Her breasttissue is almost entirely fatty. There was a 1 cm mass in the posterior upper-outer right breast 17cm from the nipple. They thought this was likely a lymph node but recommended that she return for additional imaging. She had the imaging done in [place]. They did a right diagnostic mammogram and [...] questions were answered to her satisfaction and Iencouraged her to call me with any concerns. documented in this encounterC[facility]03-12-2024 Miscellaneous Notes* Telephone Encounter - Ifrah Desouza - 05/12/2023 10:56 AM EDT Spoke with patient and scheduled with Dr. Robledo 4/2. Patient voiced understanding of appointment details. Patient was offered sooner dates but declined per her availability. documented in this encounterCleveland [facility]03-12-2024 Telephone encounter Note* Telephone Encounter - Ifrah Desouza - 05/12/2023 10:56 AM EDT Spoke with patient and scheduled with Dr. Robledo 4/2. Patient voiced understanding of appointment details. Patient was offered sooner dates but declined per her availability. [facility]02-29-2024 Miscellaneous Notes* Telephone Encounter - Maty Fulton RN - 04/30/2023 1:28 PM EST Last Office Visit: 04/28/2023 Next Office Visit: Visit date not found Last Urine Drug Screen: No results found for: BENZOSCRN OARRS appropriate documented in this encounterCleveland Clinic [facility]02-29-2024 Telephone encounter Note* Telephone Encounter - Maty Fulton RN - 04/30/2023 1:28 PM EST Last Office Visit: 04/28/2023 Next Office Visit: Visit date not found Last Urine Drug Screen: No results found for: BENZOSCRN OARRS appropriate [facility]02-27-[facility]24 History of Present illness Narrative* UMESH Hodge - 04/28/2023 10:45 AM EST [facility] [address] [place] [address] Patient: Karma Banegas Sex: female : 1980 [...] spine (09/2022 last visit for 11/05/22) at [facility] with no relief Back: 10/15/18 [...] hours of relief post Left SI injection). Thepain is present in the lumbar spine, sacro-iliac [...] posterior aspect of LLE). Pertinent negatives include nobladder incontinence, bowel incontinence, chest pain, leg pain [...] burning, cramping, stabbing and shooting. The pain isat a severity of 8/10. The pain is [...] Anxiety Asthma Back pain Bipolar 1 disorder ([facility]) Breast disorder enlarged lymph nodes in both breast Carpal tunnel syndrome Chronic pain disorder Deep vein thrombosis ([facility]) blood clot in left arm Dental disease [...] night 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 ([facility]) 11/10/2017 Visual impairment Past Surgical History: Procedure Laterality Date ANKLE SURGERY Left x2 ARTHROSCOPY SHOULDER WITH ROTATOR CUFF REPAIR Right 05/15/2022 Performed by Ana Paula Ingram MD at [facility] DEBRIDEMENT Right 05/15/2022 Performed by Ana Paula Ingram MD at [facility] DECOMPRESSION OF SUBACROMIAL SPACE WITH PARTIAL ACROMIOPLASTY Right 05/15/2022 Performed by Ana Paula Ingram MD at [facility] INJECTION BLOCK EPIDURAL STEROID LUMBAR/SACRAL: L 4/5 WU N/A 04/22/2021 Performed by Pete Silver MD at [facility] INJECTION BLOCK SACROILIAC JOINT Left 03/27/2023 Performed by Pete Silver MD at [facility]CTION CERVICAL OR THORACIC EPIDURAL BLOCK WITH STEROIDS: C67 WU N/A 01/29/2018 Performed by Pete Silver MD at [facility] INJECTION LUMBAR OR SACRAL EPIDURAL BLOCK WITH STEROIDS: L45 WU N/A 10/15/2018 Performed by Pete Silver MD at [facility] IN[facility]CTION MEDIAL BRANCH NERVE BLOCK: bilat L45 51 Bilateral 07/30/2018 Performed by Pete Silver MD at [facility] INJECTION SPINE TRANSFORAMINAL: left C 5,6 Nroot Left 01/09/2023 Performed by Pete Silver MD at [facility] LAPAROSCOPIC CHOLECYSTECTOMY N/A 09/16/2016 Performed by Juan Ramon Jean MD at [facility] LIVER BIOPSY EMA PROCEDURE Right 05/15/2022 Performed by Ana Paula Ingram MD at [facility] NASAL SURGERY REPAIR HERNIA UMBILICAL 09/16/2016 Performed by Juan Ramon Jean MD at [facility] TONSILLECTOMY Allergies Allergen Reactions Metformin Severe [...] during discussion, demonstrated appropriate cognitive reasoning and understandingof the medical condition by asking appropriate questions [...] lumbar spine and paraspinal musculature. Pain is elicitedwith flexion, extension, and lateral rotation of the [...] procedure was described in detail to the patientas well as the potential benefits of pain [...] blocks should provide information to confirm that thenoted facet arthropathy is the patient s most [...] as to the type of medication prescribed alongwith directions for use. Potential side effects have [...] monitoring for toxicity We do not currently prescribeany controlled substance from this practice. Treatment plans [...] as a result. Additional consideration will need kalin given to timing the procedure early in [...] would also help these symptoms. The patient isoptimistic about the treatment plan we have laid [...] UMESH Hodge 04/30/23 1141 documented in [facility] encounterC[facility] Instructions* Patient Instructions* Peg Conrad CNA - 04/28/2023 10:45 AM [...] take you to the nearest emergency room. Tellthe emergency room staff that you recently had a spine injection. A doctor must evaluate you for bleeding and injection complications. If you lose control over bowel, bladder, or legs: Go to the nearest emergency room. documented in this encounterC[facility]02-19-[facility]24 Hospital Discharge instructions* Discharge Instructions* Precious Urbina APRN - CNP - 04/20/2023 1:50 PM EST Increase fluid Tylenol Motrin for cough Continue home medications * Attachments The following attachments cannot be sent through Care Everywhere. * Head Injury: Closed: General Info (Singaporean) * Cervical Strain (Singaporean) documented in this encounterB[facility]01[facility]30-2024 Miscellaneous Notes* Telephone Encounter - Patricia Clay RN - 03/31/2023 9:30 AM EST Patient calls today and states she has discussed obtaining Tramadol prescription with both Mohsen Marie. She states her mother was prescribed Cymbalta and it worked for her mother. Patient had leftSI injection 03/27/2023 which she states the relief lasted 3 hours. Patient wants to know if Cymbalta is something that can be prescribed for her. She states her mother has some Cymbalta that she can try . Patient will be educated not to take medications that are prescribed to someone other than her. * Telephone Encounter - UMESH Hodge - 03/31/2023 9:30 AM EST Is she still taking prozac? What dosage? Any other antidepressants? * Telephone Encounter - Patricia Clay RN - 03/31/2023 9:30 AM EST Call placed to patient to confirm whether or not she is taking Prozac or other antidepressants. Patient states she is taking 40 mg Prozac daily. That is the only antidepressant that she takes. She isprescribed Latuda and Lamictal to treat Bipolar. * Telephone Encounter - UMESH Hodge - 03/31/2023 9:30 AM EST Can try cymbalta 30mg once daily * Telephone Encounter - Patricia Clay RN - 03/31/2023 9:30 AM EST Call placed to patient to inform her of provider's response. Patient is also educated not to take medications that are prescribed to someone other than her. Patient voices that she is aware that she should not be taking medications prescribed to someone other than her. Machine Brush Maker reiterated this to patient. Patient's pharmacy was confirmed with her. Order pended for review and signature. documented in this encounterC[facility]01-30-2024 Telephone encounter Note* Telephone Encounter - Patircia Clay RN - 03/31/2023 9:30 AM EST Patient calls today and states she has discussed obtaining Tramadol prescription with both Mohsen Marie. She states her mother was prescribed Cymbalta and it worked for her mother. Patient had leftSI injection 03/27/2023 which she states the relief lasted 3 hours. Patient wants to know if Cymbalta is something that can be prescribed for her. She states her mother has some Cymbalta that she can try . Patient will be educated not to take medications that are prescribed to someone other than her. [employer]01-30-2024 Telephone encounter Note* Telephone Encounter - UMESH Hodge - 03/31/2023 9:30 AM EST Is she still taking prozac? What dosage? Any other antidepressants? [employer]01-30-2024 Telephone encounter Note* Telephone Encounter - Patricia Clay RN - 03/31/2023 9:30 AM EST Call placed to patient to confirm whether or not she is taking Prozac or other antidepressants. Patient states she is taking 40 mg Prozac daily. That is the only antidepressant that she takes. She isprescribed Latuda and Lamictal to treat Bipolar. [employer]01-30-2024 Telephone encounter Note* Telephone Encounter - UMESH Hodge - 03/31/2023 9:30 AM EST Can try cymbalta 30mg once daily [employer]01-30-2024 Telephone encounter Note* Telephone Encounter - Patricia Clay RN - 03/31/2023 9:30 AM EST Call placed to patient to inform her of provider's response. Patient is also educated not to take medications that are prescribed to someone other than her. Patient voices that she is aware that she should not be taking medications prescribed to someone other than her. Machine Brush Maker reiterated this to patient. Patient's pharmacy was confirmed with her. Order pended for review and signature. [facility]01-04-2024 Evaluation note* Encounter Date Diagnosis Assessment Notes [...] was counseling done by myself, Rhina ROBERTSON. [facility] Other 01-01-2024 Hospital Discharge instructions* Discharge Instructions* Sil Sullivan DO - 03/02/2023 7:49 PM EST Please follow-up with your GI doctor, trial enema at home, return to the ER for worsening abdominalpain, inability to pass gas, or nausea, vomiting * Attachments The following attachments cannot be sent through Care Everywhere. * Constipation (Singaporean) documented in this encounterBON [facility]12-22-2023 Miscellaneous Notes* Telephone Encounter - [...] when she was under his care in [place]. She is currently taking Meloxicam that helps [...] She states whatever . documented in this encounterHolzer Health SystemMentiNova Sturgis [id number] Telephone encounter Note* Telephone Encounter - Argenis [...] when she was under his care in [place]. She is currently taking Meloxicam that helps [...] add Dr. Silver on the note. PVU. Witel [id number] Telephone encounter Note* Telephone Encounter - Pete Silver MD - 02/20/2023 10:04 AM EST Discussed with nurse, I agree with Fartun's treatment plan going forward. [employer]12-22-2023 Telephone encounter Note* Telephone Encounter - UMESH Hodge - 02/20/2023 10:04 AM EST No Rx for tramadol. I have never written prescription for bra so I would not know how to proceed with anything like that. [facility]el [id number] Telephone encounter Note* Telephone Encounter - Argenis Storm RN - 02/20/2023 10:04 AM EST Patient aware of response. She states whatever . [employer]12-20-2023 Evaluation note* Encounter Date Diagnosis Assessment Notes Treatment Notes Treatment Clinical Notes Jan, Constipation, unspecified constipation type (ICD-10 - K59.00) Jan, Constipation (ICD-10 - K59.00) [facility] Other 12-12-2023 Miscellaneous Notes* Telephone Encounter - [...] and has f/u appt documented in this encounterC[facility]12-12-2023 Telephone encounter Note* Telephone Encounter - Margaux Olea CST - 02/10/2023 8:18 AM EST Received denial letter for an SI Inj. It is noted in prior requests, the member's chronic pain is related to discogenic causes with improvement in symptoms with shots directed the discogenic disorder. It is not noted why the source of the chronic pain is now related to sacroiliac joint. [facility]12-12-2023 Telephone encounter Note* Telephone Encounter - UMESH [...] sufficient reason to deny the current request. [employer]12-12-2023 Telephone encounter Note* Telephone Encounter - Alfredito William - 02/10/2023 8:18 AM EST GOT APPROVAL Witel [id number] Telephone encounter Note* Telephone Encounter - Maty Fulton RN - 02/10/2023 8:18 AM EST Pt is scheduled 03/27 for procedure and has f/u appt [employer]12-07-2023 Evaluation note* Encounter Date Diagnosis Assessment Notes [...] R10.9) Jan, Rectal bleed (ICD-10 - K62.5) [employer] Other 11-16-2023 Evaluation note* Encounter Date Diagnosis [...] loss Dec, BMI 36.0-36.9,adult (ICD-10 - Z68.36) 16 Dec, 2022 Other I have spent 30 minutes with this patient and over 50% of the visit was counseling done by myself, Rhina ROBERTSON. [employer] Other 11-08-2023 Evaluation note* Encounter Date Diagnosis [...] HAVE PATIENT START DOCUSATE 3 CAPSULES DAILY. [employer] Other 06-29-2023 Evaluation note* Encounter Date Diagnosis Assessment Notes Treatment Notes Treatment Clinical Notes Jul, Obesity (ICD-10 - E66.9) Jul, BMI 34.0-34.9,adult (ICD-10 - Z68.34) Jul, Other Summary of Visi t: (A) discussed continuing to work on small goals until stress decreases and she has the energy to increase goals (B) discussed healhtier choices at [place]- food blog reviewed (C) reviewed food storage tips for keeping produce fresh longer Patient set the following goals: - NEW: continue to choose sugar free beverages- not reviewed [employer] Other 05-30-2023 Evaluation note* Encounter Date Diagnosis [...] was counseling done by myself, Rhina ROBERTSON. [employer] Other 03-21-2023 Evaluation note* Encounter Date Diagnosis [...] was counseling done by myself, Rhina ROBERTSON. [employer] Other 02-07-2023 Evaluation note* Encounter Date Diagnosis [...] set the following goals: not reviewed today [employer] Other 02-07-2023 Evaluation note* Encounter Date Diagnosis [...] was counseling done by myself, Rhina ROBERTSON. [employer] Other 12-28-2022 Evaluation note* Encounter Date Diagnosis [...] patient set personal goal using given handout. [employer] Other 12-27-2022 Evaluation note* Encounter Date Diagnosis [...] was counseling done by myself, Rhina ROBERTSON. [employer] Other 12-01-2022 NotePROCEDURE: XR ANKLE LT MIN [...] Electronically authenticated by: ONEL CLARK Date: 2022-01-29 22:30[facility]12-01-2022 NotePROCEDURE: XR ANKLE LT MIN [...] Electronically authenticated by: ONEL CLARK Date: 2022-01-29 22:30[facility]11-15-2022 Evaluation note* Encounter Date Diagnosis [...] was counseling done by myself, Rhina ROBERTSON. [employer] Other 10-05-2022 Evaluation note* Encounter Date Diagnosis [...] was counseling done by myself, Rhina ROBERTSON. [employer] Other 08-30-2022 Evaluation note* Encounter Date Diagnosis Assessment Notes Treatment Notes Treatment Clinical Notes Sep, Fatty liver (ICD-10 - K76.0) ENCOURAGED WEIGHT LOSS Sep, Obesity (BMI 30-39.9) (ICD-10 - E66.9) [facility] Other 08-23-2022 Hospital Discharge instructions* Discharge Instructions* Stanley Almonte PA-C - 10/22/2021 2:03 PM EDT Follow-up with primary care doctor 7 to 10 days for reevaluation. Take Motrin 800 mg as directed with food. Start eardrops left ear as directed. Promptly return to emergency department for new, changing or worsening of symptoms or other concerns. [facility] [employer] Phone: evaluation + Plan note No data available for this section [facility]* Diagnosis Pilonidal cyst- Primary Pilonidal cyst without mention of abscess documented in this encounter [employer] Phone: evaljuakyu note* Diagnosis Acute diffuse otitis externa of left ear- Primary documented in this encounter [facility] [employer] Phone: evalhnnyic noteNo InformationNosaint luke's hospital [employer] Other Evaluwbqdr note* Diagnosis Constipation, unspecified constipation type- Primary documented in this encounter [facility] [employer] noteNo assessment information available [facility] Work Phone: Evaluation note* Diagnosis Closed head injury, initial encounter- Primary Fall due to slipping on ice or snow, initial encounter Acute cervical myofascial strain, initial encounter documented in this encounter [facility] [employer] note* Diagnosis Onset Date Resolution Status ADHD acute BMI 36.0-36.9,adult acute Constipation acute Diabetes mellitus with hyperglycemia acute Fatty liver acute IBS (irritable bowel syndrome) acute Obesity acute Shifting sleep-work schedule, affecting sleep acute Constipation acute Elevated liver function tests acute Fatty liver acute IBS (irritable bowel syndrome) acute [facility] Work Phone: Evaluation note* Diagnosis Dizziness- Primary Dizziness and giddiness documented in this encounter [employer] note* Diagnosis JADON (obstructive sleep apnea)- Primary Obstructive sleep apnea (adult) (pediatric) Tension headache Chronic bilateral low back pain, unspecified whether sciatica present Paresthesias Disturbance of skin sensation [facility] encounter [facility] Diagnosis JADON (obstructive sleep apnea)- Primary Obstructive sleep apnea (adult) (pediatric) documented in this encounter [facility] HealthcareEvaluation [facility]* Diagnosis Chronic rhinitis documented in this encounter [facility] HealthcareEvaluation note* Diagnosis 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, unspecified whether termite helper insulin use ([facility])- Primary Vitamin D deficiency Weight gain Other symptoms concerning nutrition, metabolism, and development Encounter for dietary consultation Hyperlipemia, mixed ([facility]) Mixed hyperlipidemia Class 2 severe obesity due to excess calories with serious comorbidity and body mass index (BMI) of 39.0 to 39.9 in adult ([facility]) documented in this encounter [facility] HealthcareEvaluation note* Diagnosis Lumbosacral spondylosis without myelopathy- Primary documented in this encounter [facility]* Diagnosis Mass of upper outer quadrant of right breast- Primary Abnormal mammogram Abnormal mammogram, unspecified Symptomatic mammary hypertrophy documented in this encounter [facility]* Diagnosis Macromastia- Primary Hypertrophy of breast documented in this encounter [facility]* Diagnosis Hormone imbalance Hormone disorder Unspecified endocrine disorder Toenail fungus documented in this encounter [facility] HealthcareEvaluation note* Diagnosis Obstructive sleep apnea- Primary Obstructive sleep apnea (adult) (pediatric) Intolerance of continuous positive airway pressure (CPAP) ventilation Body mass index 34.0-34.9, adult Body Mass Index 34.0-34.9, adult documented in this encounter [facility] HealthcareEvaluation note* Diagnosis Well woman exam with routine gynecological exam Routine gynecological examination Breast cancer screening by mammogram documented in this encounter [facility] HealthcareEvaluation note* Diagnosis Onset Date Resolution Status Admit Date Constipation acute June 02 9:26am Fatty liver acute June 02 9:26am IBS (irritable bowel syndrome) acute June 02, 2024 9:26am [facility] Work Phone: Evaluation note* Diagnosis Obstructive sleep apnea- Primary Obstructive sleep apnea (adult) (pediatric) Intolerance of continuous positive airway pressure (CPAP) ventilation Class 3 severe obesity with serious comorbidity and body mass index (BMI) of 40.0 to 44.9 in adult, unspecified obesity type documented in this encounter [facility] HealthcareEvaluation note* Diagnosis Nexplanon removal documented in this encounter [facility] HealthcareEvaluation note* Diagnosis Post-traumatic osteoarthritis of left ankle- Primary Midline low back pain without sciatica, unspecified chronicity documented in this encounter [facility] Didier [facility] HealthEvaluation note* Diagnosis Itching with irritation Nexplanon removal documented in this encounter [facility] HealthcareEvaluation note* Diagnosis 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, unspecified whether termite helper insulin use- Primary Vitamin D deficiency Weight gain Other symptoms concerning nutrition, metabolism, and development Encounter for dietary consultation Hyperlipemia, mixed (CMS/HCC) Mixed hyperlipidemia Class 3 severe obesity due to excess calories without serious comorbidity with body mass index (BMI) of 40.0 to 44.9 in adult documented in this encounter [facility] HealthcareEvaluation note* Diagnosis Obstructive sleep apnea- Primary Obstructive sleep apnea (adult) (pediatric) Intolerance of continuous positive airway pressure (CPAP) ventilation documented in this encounter [facility] HealthcareEvaluation note* Diagnosis Obstructive sleep apnea- Primary Obstructive sleep apnea (adult) (pediatric) documented [facility] this encounter [facility] Narrative - Reported* Type Description Date Medical History PTSD Medical History DIVERTICULITOUS Surgical History 2 BACK INJECTIONS 2014 Surgical History LEFT ANKLE 2002 Surgical History CHOLECYSTECTOMY Hospitalization History SEE ABOVE [employer] Other [facility] general Narrative - Reported* Type Description Date Medical History PTSD Medical History DIVERTICULITOUS Medical History bipolar Medical History ADHD Surgical History 2 BACK INJECTIONS 2014 Surgical History LEFT ANKLE 2002 Surgical History CHOLECYSTECTOMY Surgical History nasal surgery Hospitalization History SEE ABOVE [facility] Other [facility] general Narrative - Reported* Type Description Date Medical History PTSD Medical History DIVERTICULITOUS Medical History bipolar Medical History ADHD Surgical History 2 BACK INJECTIONS 2014 Surgical History LEFT ANKLE 2002 Surgical History CHOLECYSTECTOMY Surgical History nasal surgery Surgical History right Rotator surgery 05-15-22 Hospitalization History SEE ABOVE [facility] Other [facility] general Narrative - Reported* Type Description Date Medical History PTSD Medical History DIVERTICULITOUS Medical History bipolar Medical History ADHD Medical History rotator cuff tear Surgical History 2 BACK INJECTIONS 2014 Surgical History LEFT ANKLE 2002 Surgical History CHOLECYSTECTOMY Surgical History nasal surgery Surgical History right Rotator surgery 05-15-22 Hospitalization History SEE ABOVE [facility] Other [facility] general Narrative - Reported* Type Description Date Medical History PTSD Medical History DIVERTICULITOUS Medical History bipolar Medical History ADHD Medical History rotator cuff tear Surgical History 2 BACK INJECTIONS 2014 Surgical History LEFT ANKLE 2002 Surgical History CHOLECYSTECTOMY Surgical History nasal surgery Surgical History right Rotator surgery 05-15-22 Surgical History Neck injections/root burnt 12/31 Hospitalization History SEE ABOVE [facility] Other History general Narrative - Reported* Type Description Date Medical History PTSD Medical History DIVERTICULITOUS Medical History bipolar Medical History ADHD Medical History rotator cuff tear Surgical History 2 BACK INJECTIONS 2015 Surgical History LEFT ANKLE 2002 Surgical History CHOLECYSTECTOMY Surgical History nasal surgery Surgical History right Rotator surgery 05-15-22 Surgical History Neck injections/root burnt 12/31 Hospitalization History SEE ABOVE Hospitalization History [facility]- onstipation 03-02-2023 [facility] Other Hospital Discharge instructions* Attachments The following attachments cannot be sent through Care Everywhere. * Pilonidal Abscess (Singaporean) [facility] Work Phone: Hospital Discharge instructions No data available for this section [facility] Additional Instructions No exertional activity Ice to incisions for pain and swelling Medications as prescribed May shower in 24 hours Call the office for any questions or concerns [facility] Work Phone: InstructionsNot on filedocumented in this encounter [facility]ructionsNot on filedocumented in this encounter [facility] SystemInstructionsNot on filedocumented in this encounter [facility] SystemInstructionsNot on filedocumented in this encounter [facility] SystemInstructionsNot on filedocumented in this encounter [facility] SystemInstructionsNot on filedocumented in this encounter [facility] SystemInstructionsNot on filedocumented in this encounter [facility] SystemProgress note No data available for this section [facility] HospitalReason for referral (narrative)* Consultation (Routine) - Pending Review Specialty Diagnoses / Procedures Referred By Karla cuadra Referred To Contact Otolaryngology Diagnoses JADON (obstructive sleep apnea) Procedures [place] OFFICE/OUTPATIENT NEW HIGH MDM 60 MINUTES Brittany Neville NP [address] [place] [address] Referral ID Status Reason Start Date Expiration Date Visits Requested Visits Authorized [id number] Pending Review Specialty Services Required 11/30/2023 05/28/20[address] Brito for Inspire device. NATALIIA Craven for visit Narrative* Consultation (Routine) - Pending Review Specialty Diagnoses / Procedures Referred By Contac t Referred To Contact Breast Surgery Diagnoses Abnormal mammogram Carmen Fisher MD [address] [place] [id number] Ila Trevizo MD [address] [place] [phone] Referral ID Status Reason Start Date Expiration Date V isits Requested Visits Authorized [id number] Pending Review 05/06/2023 05/05/2024 1 1 [facility] Summary Purpose Family History No Family [...] Time Advance Directives No July 18 9:24am Latest Code Status on File Code Status Date Activated Date Inactivated Comments Full Code 09/16/2016 3:19 PM 09/17/2016 8:38 PM Date Activated Date Inactivated Comments 09/16/2016 3:19 PM 09/17/2016 8:38 PM Latest Code Status on File Code Status [...] Referred By Karla t Referred To Contact Diagnoses Lumbosacral spondylosis without myelopathy Procedures Case request operating room: INJECTION BLOCK NERVE MEDIAL BRANCH: left L45 [address], UMESH [address], [address] [place] [address] Referral ID Status Reason Start Date Expiration Date V isits Requested Visits Authorized [id number] Pending Review 04/28/2023 04/27/2024 1 1 Chief [...] May 9:26am GERD (gastroesophageal reflux disease) J une 2024 1:22pm Irritable bowel syndrome with constipati on August 08, 2024 1:22pm Chief Complaint Admit Date 6 month follow up June 02, 2024 9:26 am Sleep Apnea July 27, 2024 10:17 am Discuss Probiotic August 08, 2024 1:22p m Sleep Apnea August 10, 2024 6:11 am Additional Source Comments INFORMATION SOURCE (unrecogn ized section and content) DATE CREATED AUTHOR 08/26/2017 [facility] DATE CREATED AUTHOR AUTHOR'S ORGANIZ ATION 05/30/2022 [facility] DATE CREATED AUTHOR AUTHOR'S ORGANIZ ATION 01/18/2023 [facility] DATE CREATED AUTHOR AUTHOR'S ORGANIZ ATION 06/04/2023 [facility] DATE CREATED AUTHOR AUTHOR'S ORGANIZ ATION 10/10/2023 [facility] DATE CREATED AUTHOR AUTHOR'S ORGANIZ ATION 12/22/2023 [facility] DATE CREATED AUTHOR AUTHOR'S ORGANIZ ATION 07/10/2024 [facility] DATE CREATED AUTHOR AUTHOR'S ORGANIZ ATION 07/17/2024 [facility] DATE CREATED AUTHOR AUTHOR'S ORGANIZ ATION 08/08/2024 [facility] DATE CREATED AUTHOR AUTHOR'S ORGANIZ ATION 08/21/2024 [facility] DATE CREATED AUTHOR AUTHOR'S ORGANIZ ATION 09/03/2024 [facility] DATE CREATED AUTHOR AUTHOR'S ORGANIZ ATION 09/12/2024 [facility] Reason for Visit (unrecogniz [...] Reason Comments Diabetes Reason Onset Date Comments Medication, DME 02/20/2023 Reason Onset Date Comments Prior Authorization 04/13/2024 Reason Comments Back Pain Neck Pain Reason Onset Date Comments Med Refill 04/30/2023 Reason Onset Date Comments Med Refill 09/08/2023 Reason Comments New Patient Reason Comments Discuss Hormones Reason Comments Sleep [...] month ago. Pt evaluated and treated at [facility] [facility].Pt fell again x2 weeks ago. Pt evaluated at [facility] and treated for right ankle and wrist fracture. Pt has MRI scheduled.Pt currently being treated by Pain Management. Reason Onset Date Comments Advice Only 07/20/2024 Reason Comments Follow-up Reason Comments Post-op Post op Inspire Reason Comments Post-op Having problems with inspire Ordered Prescriptions (unrec ognized section and content) Prescription Sig Dispensed Refills Start Date End Da te clindamycin (CLEOCIN) 150 MG capsule Take 3 capsules by mouth in the morning and 3 capsules at noon and 3 capsules before bedtime. Do all this for 10 days. 90 capsule 0 10/12/2021 10/22/2021 Prescription Sig Dispensed Refills Start Date End Da te saxzxkuy-vupkcnojm-ihkllg ortisone (CORTISPORIN) 3.5-28047-[address] 4 drops into the [...] mL/hr, Administer over 61 Minutes, ONCE, On 01/13/24 at 1530, For 1 dose, For adult patients weighing > 55 kg (120 lbs.) and less than <50 years of age initiate 0.9NS at 500 mL/ hr. All bolus orders are to be given over 10 to 15 minutes 1532 (New Bag - Prov ider: Ranjana Hyde RN)1756 (Stopped - Provider: Ranjana Hyde RN) Care Teams (unrecognized sec tion and content) Licensed Surveyor Relationship Specialty Start Date End Date Rumschlag, Shawna, DO [address] [place] [address] PCP - General Family Medicine 10/12/21 Licensed Surveyor Relationship Specialty Start Date End Date Rumschlag, Shawna, DO [address] [place] [address] PCP - General Family Medicine 10/12/21 Licensed Surveyor Relationship Specialty Start Date End Date RumschVicky panty, DO [address] [place] [address] PCP - General Family Medicine 10/12/21 Licensed Surveyor Relationship Specialty Start Date End Date Rumparker Shawna, DO [address] [place] [address] PCP - General Family Medicine 10/12/21 Team [...] Care Provider Active Start: March 18, 2023 Licensed Surveyor Relationship Specialty Start Date End Date Rumschviviane, Shawna, DO [address] [place] [address] PCP - General Family Medicine 10/12/21 Licensed Surveyor Relationship Specialty Start Date End Date Rumschlag, Shawna, DO [address] [place], [place] [id number] PCP - General Family Medicine 10/12/21 Team Status: Active Member Role Status Dates Rory Driver , [facility] Primary Care Provider Active Team Status: Inactive Member Role Status Dates Gayathri Adams APRN Attending Provider Active Start: May 21, 2023 End: May 21, 2023 Rory Driver , [facility] Primary Care Provider Active Start: May 21, 2023 End: May 21, 2023 Team Status: Inactive Member Role Status Dates Jan Garg APRN Attending Provider Active Start: May 21, 2023 End: May 21, 2023 Rory Driver , [facility] Primary Care Provider Active Start: May 21, 2023 End: May 21, 2023 Licensed Surveyor Relationship Specialty Start Date End Date Shawna Mcfadden DO [address] [facility] [place] [address] PCP - [facility] 10/12/21 Licensed Surveyor Relationship Specialty Start Date End Date Shawna Mcfadden DO [address] [facility] [place] [place] [address] PCP - General Family Medicine 10/12/21 Licensed Surveyor Relationship Specialty Start Date End Date Loreto Mcneal APRN - CROTCH BREAKER [address] [place] [address] PCP - General 11/11/23 Licensed Surveyor Relationship Specialty Start Date End Date Loreto Mcneal APRN - CROTCH BREAKER [address] [place] [address] PCP - General 11/11/23 Licensed Surveyor Relationship Specialty Start Date End Date Loreto Mcneal APRN - CROTCH BREAKER [address] [place] [address] PCP - General 11/11/23 Licensed Surveyor Relationship Specialty Start Date End Date Loreto Mcneal APRN - CROTCH BREAKER [address] [place] [address] PCP - General 11/11/23 Licensed Surveyor Relationship Specialty Start Date End Date Shawna Mcfadden, [address] [place], [place] [id number] PCP - General Family Medicine 04/14/22 Key Andrea NP [address] [place] [address] Referring Physician Family Medicine 08/13/23 Licensed Surveyor Relationship Specialty Start Date End Date Key Andrea, JO ANN [address] [place] [address] Referring Physician Family Medicine 08/13/23 Licensed Surveyor Relationship Specialty Start Date End Date Key Andrea, JO ANN [address] [place] [address] Referring Physician Family Medicine 08/13/23 Licensed Surveyor Relationship Specialty Start Date End Date Key Andrea NP [address] [place] [address] Referring Physician Family Medicine 08/13/23 Licensed Surveyor Relationship Specialty Start Date End Date Shawna Mcfadden, [address] [place] [address] PCP - General Family Medicine 04/14/22 Key Andrea NP [address] [place] [address] Referring Physician Family Medicine 08/13/23 Team Status: Inactive Member Role Status Dates Rory Driver [facility] Primary Care Provider Active Start: January 21, 2024 End: January 21, 2024 MELE Best Attending Provider Active Start: January 21, 2024 End: January 21, 2024 Team Status: Inactive Member Role Status Dates Rory Driver [facility] Primary Care Provider Active Start: March 09, 2024 End: March 09, 2024 Mio Marroquin DO Attending Provider Active S tart: March 09, 2024 End: March 09, 2024 Licensed Surveyor Relationship Specialty Start Date End Date Shawna Mcfadden DO [address] [place], [place] [address] PCP - General Family Medicine 04/14/22 Key Andrea, CROTCH BREAKER [address] [place] [address] Referring Physician Family Medicine 08/13/23 Licensed Surveyor Relationship Specialty Start Date End Date Shawna Mcfadden DO [address] [place], [place] [id number] PCP - General Family Medicine 04/14/22 Key Andrea, JO ANN [address] [place] [address] Referring Physician Family Medicine 08/13/23 Licensed Surveyor Relationship Specialty Start Date End Date Shawna Mcfadden DO [address] [place], [place] [id number] PCP - General Family Medicine 05/02/22 Licensed Surveyor Relationship Specialty Start Date End Date Shawna Mcfadden DO [address] [place] [address] PCP - General Family Medicine 05/02/22 Licensed Surveyor Relationship Specialty Start Date End Date Shawna Mcfadden DO [address] [place] [address] PCP - General Family Medicine 04/14/22 Key Andrea NP [address] [place] [address] Referring Physician Family Medicine 08/13/23 Licensed Surveyor Relationship Specialty Start Date End Date Shawna Mcfadden DO [address] [place] [address] PCP - General Family Medicine 05/02/22 Licensed Surveyor Relationship Specialty Start Date End Date Shawna Mcfadden DO [address] [place] [address] PCP - General Family Medicine 05/02/22 Licensed Surveyor Relationship Specialty Start Date End Date Shawna Mcfadden DO [address] [place] [address] PCP - General Family Medicine 05/02/22 Licensed Surveyor Relationship Specialty Start Date End Date Shawna Mcfadden DO [address] [place] [address] PCP - General Family Medicine 05/02/22 Licensed Surveyor Relationship Specialty Start Date End Date Shawna Mcfadden DO [address] [place] [address] PCP - General Family Medicine 05/02/22 Licensed Surveyor Relationship Specialty Start Date End Date Shawna Mcfadden DO [address] [place] [address] PCP - General Family Medicine 05/02/22 Licensed Surveyor Relationship Specialty Start Date End Date Shawna Mcfadden DO [address] [place] [address] PCP - General Family Medicine 05/02/22 Licensed Surveyor Relationship Specialty Start Date End Date [facility], [facility] [address] [place] PCP - General Family Medicine 10/05/23 Licensed Surveyor Relationship Specialty Start Date End Date Shawna Mcfadden DO [address] [place] [address] PCP - General Family Medicine 04/14/22 Key Andrea, CROTCH BREAKER [address] [place] [address] Referring Physician Family Medicine 08/13/23 Licensed Surveyor Relationship Specialty Start Date End Date Shawna Mcfadden DO [address] [place] [address] PCP - General Family Medicine 04/14/22 Key Andrea, CROTCH BREAKER [address] [place] [address] Referring Physician Family Medicine 08/13/23 Licensed Surveyor Relationship Specialty Start Date End Date Shawna Mcfadden DO [address] [place] [address] PCP - General Family Medicine 04/14/22 Key Andrea, CROTCH BREAKER [address] [facility] [address] Referring Physician Family Medicine 08/13/23 Licensed Surveyor Relationship Specialty Start Date End Date EdwarShawna maloney [address] [place] [address] PCP - General Family Medicine 04/14/22 Key Andrea, JO ANN [address] [facility] [place] [address] Referring Physician Family Medicine 08/13/23 Laila Santos DO [address] [place] [address] Referring Physician Neurology 05/10/24 Licensed Surveyor Relationship Specialty Start Date End Date Shawna Mcfadden DO [address] [place] [address] PCP - General Family Medicine 04/14/22 Key Andrea NP [address] [facility] [address] Referring Physician Family Medicine 08/13/23 Laila Santos DO [address] [place] [address] Referring Physician Neurology 05/10/24 Team Status: Active Member Role Status Dates Rory Driver [facility] Primary Care Provider Active Start: April 04, 2024 Matt Flores DO Attending Provider Active Sta rt: April 04, 2024 Team Status: Inactive Member Role Status Dates Rory Driver [facility] Primary Care Provider Active Start: June 02, 2024 End: June 02, 2024 Jan Garg APRN Attending Provider Active Start: June 02, 2024 End: June 02, 2024 Licensed Surveyor Relationship Specialty Start Date End Date BismarkShawna pan DO [address] [place] [address] PCP - General Family Medicine 04/14/22 Key Andrea, JO ANN [address] [place] [address] Referring Physician Family Medicine 08/13/23 Laila Santos DO [address] [place] [address] Referring Physician Neurology 05/10/24 Licensed Surveyor Relationship Specialty Start Date End Date BismarkShawna panDO [address] [place] [address] PCP - General Family Medicine 04/14/22 Key Andrea, CROTCH BREAKER [address] [place] [address] Referring Physician Family Medicine 08/13/23 Laila Santos DO [address] [place] [address] Referring Physician Neurology 05/10/24 Licensed Surveyor Relationship Specialty Start Date End Date Loreto Mcneal APRN - CROTCH BREAKER [address] [place] [address] PCP - General 11/11/23 Team Status: Active Member Role Status Dates Loreto Mcneal APRN CROTCH BREAKER-C Primary Care Provide r Active Team Status: Inactive Member Role Status Dates Mendez Cardoso DO Attending Provider Active S tart: July 27, 2024 End: July 27, 2024 Loreto Mcneal APRN CROTCH BREAKER-C Primary Care Provide r Active Start: July 27, 2024 End: July 27, 2024 Licensed Surveyor Relationship Specialty Start Date End Date Shawna Mcfadden DO [address] [place] [address] PCP - General Family Medicine 04/14/22 Key Andrea NP [address] [facility] [place] [address] Referring Physician Family Medicine 08/13/23 Laila Santos DO [address] [place] [address] Referring Physician Neurology 05/10/24 Licensed Surveyor Relationship Specialty Start Date End Date Shawna Mcfadden DO [address] [place] [address] PCP - General Family Medicine 04/14/22 Key Andrea NP [address] [facility] [place] [address] Referring Physician Family Medicine 08/13/23 Laila Santos DO [address] [place] [address] Referring Physician Neurology 05/10/24 Licensed Surveyor Relationship Specialty Start Date End Date Shawna Mcfadden DO [address] [place] [address] PCP - General Family Medicine 04/14/22 Key Andrea NP [address] [facility] [place] [address] Referring Physician Family Medicine 08/13/23 Laila Santos DO [address] [place] [address] Referring Physician Neurology 05/10/24 Team Status: Inactive Member Role Status Dates Jan Garg APRN Attending Provider Active Start: August 08, 2024 End: August 08, 2024 Loreto Mcneal APRN CROTCH BREAKER-C Primary Care Provide r Active Start: August 08, 2024 End: August 08, 2024 Licensed Surveyor Relationship Specialty Start Date End Date Shawna Mcfadden DO [address] [place] [address] PCP - General Family Medicine 04/14/22 Key Andrea NP [address] [place], [place] [address] Referring Physician Family Medicine 08/13/23 Laila Santos DO [address] [place] [address] Referring Physician Neurology 05/10/24 Team Status: Inactive Member Role Status Dates Mendez Cardoso DO Attending Provider Active S tart: August 10, 2024 End: August 10, 2024 Loreto Mcneal APRN CROTCH BREAKER-C Primary Care Provide r Active Start: August 10, 2024 End: August 10, 2024 Licensed Surveyor Relationship Specialty Start Date End Date Shawna Mcfadden DO [address] [place] [address] PCP - General Family Medicine 04/14/22 Key Andrea NP [address] [place] [address] Referring Physician Family Medicine 08/13/23 Lalia Santos DO [address] [place] [address] Referring Physician Neurology 05/10/24 Mendez Cardoso DO [address] [place] [address] Otolaryngology 08/19/24 Licensed Surveyor Relationship Specialty Start Date End Date Shawna Mcfadden DO [address] [place] [address] PCP - General Family Medicine 04/14/22 Key Andrea, CROTCH BREAKER [address] [place] [address] Referring Physician Family Medicine 08/13/23 Laila Santos DO [address] [place] [address] Referring Physician Neurology 05/10/24 Mendez Cardoso DO [address] [place] [address] Otolaryngology 08/19/24 Licensed Surveyor Relationship Specialty Start Date End Date Shawna Mcfadden DO [address] [facility] [address] PCP - General Family Medicine 04/14/22 Key Andrea, CROTCH BREAKER [address] [place] [address] Referring Physician Family Medicine 08/13/23 Laila Santos DO [address] [place] [address] Referring Physician Neurology 05/10/24 Mendez Cardoso DO [address] [place] [address] Otolaryngology 08/19/24 Licensed Surveyor Relationship Specialty Start Date End Date Services, [facility] [address] [place], [place] PCP - General Family Medicine 10/05/23 Goals (unrecognized section and content) Goals may [...] BE BASED ON THE PRIMARY CLINICAL RECORDS. [facility] [employer] [facility]. provides no warranty or guarantee of the accuracy or completeness of information in this document.
--- OUTSIDE RECORDS SUMMARY | 2024-09-15 06:50 | XMS_ITS | Clinical Summary ---
Author Organization [facility] Address [address], [address] [place] [address] Care Team Providers Care Curb Setter Helper Name Role Phone Loreto Mcneal APRN, NP [...] EDT - 07/16/2024 1:52 PM EDT Emergency [facility] Emergency Department [address] [place] [address] Post-traumatic osteoarthritis of left ankle [...] Description 11/10/2024 11:30 AM EDT Office Visit [facility] Part of [facility] [address] [place] [phone] Karen Cotter, MCAT TUTOR - HEEL SEAT FITTER [address] [place] [phone] 1 year [employer] Maintenance Due Date Last Done Comments Lipids 1990 Depression Screen 1992 Varicella vaccine (1 of 2 - 13+ 2-dose series) 1993 HIV screen 09/25/1995 Hepatitis C screen 1998 Pap smear 2001 Cervical cancer screen 2010 HPV (without or with Pap) 2010 Diabetes screen 09/25/2015 DTaP/Tdap/Td vaccine (1 - Tdap) 09/03/2021 09/02/2021 Flu vaccine (#1) 09/30/2024 12/07/2023, , 12/23/2021, Additional history exists Breast cancer screen 03/16/2025 03/16/2023, 11/08/19 22 Pneumococcal 0-49 years Vaccine Aged Out 02/07/2022, 12/02/2017 No longer eligibl e based on patient's age to complete this topic Hepatitis A vaccine Aged Out 05/25/2023, 12/22/2022, 06/23/2022 No longer eligible based on patient's age to complete this topic Hepatitis B vaccine Completed 05/25/2023, 12/22/2022, 06/23/2022 COVID-19 Vaccine Completed 12/07/2023, , 02/07/2022 HPV vaccine Aged Out No longer eligi [...] Color, UA Yellow Yellow 07/16/2024 1:25 PM [facility] Turbidity UA Clear Clear 07/16/2024 1:25 PM [facility] Glucose, Ur 3+(A) NEGATIVE mg/dL 07/16/2024 1:25 PM [facility] Bilirubin, Urine NEGATIVE NEGATIVE 07/16/2024 1:25 PM [facility] Ketones, Urine NEGATIVE NEGATIVE mg/dL 07/16/2024 1:25 PM [facility] Specific [place], UA 1.025(H) 1.010 - 1.020 07/16/2024 1:25 PM [facility] Urine Hgb NEGATIVE NEGATIVE 07/16/2024 1:25 PM [facility] pH, Urine 6.0 5.0 - 9.0 07/16/2024 1:25 PM [facility] Protein, UA NEGATIVE NEGATIVE mg/dL 07/16/2024 1:25 PM [facility] Urobilinogen, Urine Normal 0.0 - 1.0 EU/dL 07/16/2024 1:25 PM [facility] Nitrite, Urine NEGATIVE NEGATIVE 07/16/2024 1:25 PM [facility] Leukocyte Esterase, Urine NEGATIVE NEGATIVE 07/16/2024 1:25 PM [facility] WBC, UA 0 TO 2 0 - 5 /HPF 07/16/2024 1:25 PM [facility] RBC, UA 0 TO 2 0 - 2 /HPF 07/16/2024 1:25 PM EDT [facility] Epithelial Cells, UA 0 TO 2 0 - 25 /HPF 07/16/2024 1:25 PM EDT [facility] Bacteria, UA TRACE(A) None 07/16/2024 1:25 PM EDT [facility] Mucus, UA TRACE(A) None 07/16/2024 1:25 PM EDT [facility] Amorphous, UA TRACE(A) None 07/16/2024 1:25 PM EDT [facility] Urine URINE SPECIMEN / Unknown 07/16/2024 1:25 PM EDT 07/16/2024 1:29 PM EDT Prieto Daniel PA-C URINE ORDERABLES Final Result [facility] [address] [phone] * XR ANKLE LEFT (MIN 3 VIEWS) [...] 1. No acute abnormality. Prieto Daniel PA-C [facility] ORDERAB LES Final Result * [...] osteoarthritis. IMPRESSION: 1. No acute abnormality. Prieto Daniel PA-C [facility] ORDERAB LES Final Result * [...] Final Result from Last 3 Months Insurance [facility] Care Teams Curb Setter Helper Relationship Specialty Start Date End Date Loreto Mcneal APRN - NP [address] [place] [address] PCP - General 11/11/23
--- OUTSIDE RECORDS SUMMARY | 2024-09-15 06:50 | XMS_ITS | Encounter Summary ---
Author Organization [facility] Address [address] [place] [address] Care Team Providers Care Sound System Installer Name Role Phone Key Andrea INDEPENDENT CONSULTANT Unavailable Shawna Dudley DO Primary Care Provider [phone] Sasha Santos DO Unavailable [phone] Mendez Ortiz DO Unavailable [phone] Encounter Details Date Type Department Care Team (Late Contact Info) Description 09/01/2024 Bamboo flowsheet [facility] [place] [address] [place] [address] Mendez Ortiz DO [address] [place] [address] Social History Tobacco Use Types Packs/Day Years [...] Upcoming Encounters Date Type Department Care Team ([facility] Contact Info) Description 12/01/2024 11:00 AM EDT Office Visit [facility] [address] [place] [phone] Cleo Zambrano MD [address] [place] [address] 05/31/2025 1:00 PM EDT Office Visit [facility] [address] [place] [phone] Roel Garber DO [address] [place] [address] 08/18/2025 2:00 PM EDT Office Visit [facility] [address] [place] [address] Mendez Ortiz DO [address] [place] [address] documented as of this encounter Visit Diagnoses Not on filedocumented in this encounter Care Teams Sound System Installer Relationship Specialty Start Date End Date Shawna Dudley DO [address] [facility] [address] PCP - General Family Medicine 04/14/22 Key Andrea NP [address] [place] [address] Referring Physician Family Medicine 08/13/23 Sasha Santos DO [address] [place] [address] Referring Physician Neurology 05/10/24 Mendez Ortiz DO [address] [place] [address] Otolaryngology 08/19/24 documented as of this encounter
--- OUTSIDE RECORDS SUMMARY | 2024-09-15 06:50 | XMS_ITS | Encounter Summary ---
Author Organization [facility] Address [id number] [address] [place] [address] Care Team Providers Care Data Technician Name Role Phone Services, [facility] Primary Care Provider Encounter Details Date Type Department Care Team (Late st Contact Info) Description 10/30/2017 Telephone [facility] Family Medicine [address] [place] [address] Amy Cerna LPN Social History Tobacco Use [...] documented as of this encounter Care Teams Data Technician Relationship Specialty Start Date End Date Services, [facility] [address] [place], [place] PCP - General Family Medicine 10/05/23 documented as of this encounter
--- OUTSIDE RECORDS SUMMARY | 2024-09-15 06:50 | XMS_ITS | Encounter Summary ---
Author Organization [facility] Address [id number] [address] [place] [address] Care Team Providers Care Senior Project Engineer Name Role Phone Services, [facility] Primary Care Provider Reason for Visit * Reason Comments Med Refill Encounter Details Date Type Department Care Team (Late st Contact Info) Description 06/11/2017 Refill [facility] Family Medicine [address] [place] [address] [place] [phone] Francia High, TOUCH UP EDGER-CORRECTION WORKER [address] [place], [place] [phone] Social History Tobacco Use Types Packs/Day Years [...] as of this encounter Care Teams Senior Project Engineer Relationship Specialty Start Date End Date Services, [place] [id number] [place], [place] PCP - General Family Medicine 10/05/23 documented as of this encounter
--- OUTSIDE RECORDS SUMMARY | 2024-09-15 06:50 | XMS_ITS | Clinical Summary ---
Author Organization [facility] Address [address] [place] [address] Care Team Providers Care Welding Machine Operator Plasma Arc Name Role Phone Key Andrea MATERIALS ASSISTANT Unavailable Shawna Dudley DO Primary Care Provider [phone] Sasha Santos DO Unavailable [phone] Mendez Ortiz DO Unavailable [phone] Allergies Active Allergy Reactions Criticality Noted Date [...] 50 mg by mouth Daily as needed 3 Active traZODone (Desyrel) 50 MG tablet Take 50-100 mg by mouth at bedtime Active rosuvastatin (Crestor) 10 MG tablet Take 10 mg by mouth Daily Active Probiotic Product (Align) capsule Take 1 capsule by mouth Daily 3 Active naproxen (Naprosyn) 500 MG tablet Take 500 mg by mouth in the morning and 500 mg in the evening. Take with meals. 3 Active Multiple Vitamin (Tab-A-Karely) tablet Take 1 tablet by mouth Daily 3 Active lurasidone (Latuda) 120 MG tablet Take 80 mg by mouth Daily Take with food. Active Vyvanse 70 MG capsule Take 70 mg by mouth Daily 3 Active lamoTRIgine (LaMICtal) 200 MG tablet Take 200 mg by mouth Daily Active fluticasone (Flonase) 50 MCG/ACT nasal spray Administer 1 spray into each nostril 1 (one) time each day at the same time Active FLUoxetine (PROzac) 60 MG tablet Take 60 mg by mouth Daily Active fexofenadine (Ros) 180 MG tablet Take 180 mg by mouth Daily 3 Active etonogestrel-elut ing (Nexplanon) 68 mg contraceptive implant Inject 68 mg under the skin 1 (one) time Active docusate sodium (Colace) 100 MG capsule Take 300 mg by mouth in the morning and 300 mg in the evening and 300 mg before bedtime. Active cholecalciferol (Vitamin D-3) 50 MCG (2000 UT) capsule Take 2,000 Units by mouth Daily 3 Active ascorbic acid (Vitamin C) 500 MG tablet Take 500 mg by mouth in the morning and 500 mg before bedtime. 3 Active albuterol HFA (Ventolin HFA) 90 mcg/act [...] needed in the evening for muscle spasms. 4 Active diclofenac (Voltaren) 75 MG EC tablet Take 75 mg by mouth as needed in the morning and 75 mg as needed in the evening. 4 Active mupirocin (Bactroban) 2 % ointmentIndicatio ns:Chronic rhinitis apply to left nose TWICE DAILY for 2 (TWO) weeks NEEDED 15 g 2 5 Active gabapentin (Neurontin) 300 MG capsuleIndication s:Paresthesias 1 po 2-3 times a day. 90 capsule 2 5 Active metoprolol succinate XL (Toprol-XL) 25 MG 24 hr tablet 5 Active ciclopirox (Loprox) 0.77 % creamIndications: Rash and other nonspecific skin eruption APPLY TO THE AFFECTED AREA(S) TWICE DAILY 90 g 5 Active B Complex Vitamins (vitamin B complex) tablet Take 1 tablet by mouth Daily 5 Active pantoprazole (ProtoNix) 40 MG EC tablet Take 40 mg by mouth in the morning. Take before meals. Do not crush, chew, or split. Active ferrous sulfate 325 (65 Fe) MG tablet Take 325 mg by mouth in the morning. Take with meals. Active lansoprazole (Prevacid) [address] capsule Take 30 mg by mouth Daily 5 Active famotidine (Pepcid) 40 MG tablet Take 40 mg by mouth Daily 5 Active SUMAtriptan (Imitrex) 100 MG tabletIndications :Migraine with aura and without status migrainosus, not intractable TAKE 1 TABLET BY MOUTH DAILY NEEDED FOR MIGRAINE 9 tablet 1 5 Active empagliflozin (Jardiance) 25 MGIndications:Typ e 2 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, unspecified whether longterm insulin use (HCC) Take 1 tablet (25 mg) by mouth Daily 30 tablet 2 5 11/03/19 25 Active pioglitazone (Actos) 30 MG tabletIndications :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, unspecified whether longterm insulin use (HCC) Take 1 tablet (30 mg) by mouth Daily 30 tablet 3 5 Active Tirzepatide (Mounjaro) 5 MG/0.5ML solution auto-injectorIndi cations: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, unspecified whether longterm insulin use (HCC) Inject 5 mg under the skin every 7 (seven) days 6 mL 1 5 11/03/19 25 Active Active Problems Problem Noted Date [...] (03/10/2023): Added automatically from request for surgery [id number] Lumbosacral spondylosis without myelopathy 07/22 Overview (03/10/2023): Added automatically from request for surgery [id number] PTSD (post-traumatic stress disorder) 06/16/2018 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 Cervical disc displacement 09/21/2017 Acute cholecystitis 09/15/2016 Resolved Problems Problem Noted Date Diagnosed Date Resolved Date Elevated liver function tests 08/17/2024 08/17/2024 Fatty liver 08/17/2024 08/17/2024 History of kidney stones 08/17/2024 Constipation 08/17/2024 08/17/2024 Irritable bowel syndrome with constipation 08/17/2024 08/17/2024 Musculoskeletal chest pain 08/17/2024 0 08/17/2024 Other chronic pain 08/17/2024 Postoperative pain 08/17/2024 Reactive hypoglycemia 08/17/20242024 Attention deficit hyperactivity disorder 04/27/2024 04/27/2024 Circadian [...] Encounters Date Type Department Care Team Description 09/01/2024 10:45 AM EDT Office Visit [facility] [address] [place] [address] Mendez Ortiz, Obstructive sleep apnea (Primary Dx) 09/01/2024 Bamboo flowsheet [facility] [address] [place] [address] Mendez Ortiz, 09/01/2024 Travel 08/19/2024 1:15 PM EDT Office Visit [facility] [address] [place] [address] Mendez Ortiz, Obstructive sleep apnea (Primary Dx); Intolerance of continuous positive airway pressure (CPAP) ventilation 08/19/2024 Bamboo flowsheet [facility] [address] [place] [address] Mendez Ortiz, 08/19/2024 Travel 08/10/2024 8:00 AM EDT Procedure Visit [facility] Mendez Ortiz, Obstructive sleep apnea (Primary Dx); Intolerance of continuous positive airway pressure (CPAP) ventilation 08/10/2024 External Result Encounter [facility] External Department Unsolicited Mendez Ortiz, 08/10/2024 External Result Encounter [facility] External Department Unsolicited Mendez Ortiz, 08/10/2024 External Result Encounter [facility] External Department Unsolicited Mendez Ortiz, 08/04/2024 10:30 AM EDT Office Visit [facility] [address] [place] [address] Cleo Zambrano MD 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, 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 (HCC) (Primary Dx); Vitamin D deficiency; Weight gain; Encounter for dietary consultation; Hyperlipemia, mixed ; Class 3 severe obesity due to excess calories without serious comorbidity with body mass index (BMI) of 40.0 to 44.9 in adult ([facility]) 08/04/2024 Bamboo flowsheet [facility] [address] [place] [address] Cleo Zambrano MD 08/02/2024 8:30 AM EDT Office Visit [facility] [address] [place] [address] Roel Garber, Itching with irritation; Nexplanon removal 08/02/2024 Bamboo flowsheet [facility] [address] [place] [address] Roel Garber, 07/20/2024 Telephone [facility] [address] [place] [address] Cleo Zambrano MD Advice Only 06/30/2024 9:40 AM EDT Procedure Visit [facility] [address] [place] [address] Roel Garber, DO Nexplanon removal 06/30/20[address] [address] [place] [address] Bela Ribeiro LPN 06/27/2024 Abstract [facility] [address] [place] [address] Roel Garber, DO 06/17/2024 Refill [facility] [address] [place] [address] Brittany Neville NP Migraine with aura and without status migrainosus, not intractable from Last 3 Months Immunizations Immunization Administration Dates Next Due Hep A / Hep B 05/25/2023,12/22/2022,06/23/2022 Influenza Whole 12/03/2012, 2,12/23/2010,2008 Influenza, injectable, quadr ivalent, preservative free 12/23/2021,12/24/2020,12/19/2019,2018,12/02/2017 Influenza, live, intranasal 12/19/2013 Influenza, recombinant, quad rivalent, injectable, preservative free 12/22/2022 Influenza, seasonal, injecta ble, preservative free 12/07/2023,10/10/2016 Pneumococcal Conjugate PCV 13 12/02/2017 Pneumococcal Conjugate PCV 20 02/07/2022 Td (adult), unspecified 09/02/2021 Tdap 09/02/2021 Family History Medical History Relation Name [...] Sign Reading Time Taken Comments Blood Pressure 112/70 08/04/2024 10:45 AM EDT Pulse 87 08/04/2024 10:45 AM EDT Temperature - - Respiratory Rate 16 08/04/2024 10:45 AM EDT Oxygen Saturation 97% 08/04/2024 10:45 AM EDT Inhaled Oxygen Concentration - - Weight 104 kg (230 lb) 09/01/2024 10:52 AM EDT Height 160 cm (5' 3 ) 09/01/2024 10:52 AM EDT Body Mass Index 40.74 09/01/2024 10:52 AM EDT Plan of Treatment Upcoming Encounters Date Type Department Care Team (Late st Contact Info) Description 12/01/2024 11:00 AM EDT Office Visit [facility] [address] [place] [address] Cleo Zambrano MD [address] [place] [address] 05/31/2025 1:00 PM EDT Office Visit [facility] [address] [place] [address] Roel Garber, DO [address] [place] [address] 08/18/2025 2:00 PM EDT Office Visit [facility] [place] [address] [place] [address] Mendez Ortiz, DO [address] [place] [address] Health Maintenance Due Date Last Done Comments Influenza Vaccine (#1) 2024 , 12/22/2022, 12/23/2021, Additional history exists Mammogram 05/27/2025 05/27/2024, 03/02, 03/16/2023, Additional history exists Pap Smear 05/24/2026 05/25/2023, 05/19/2022 Cervical Cancer Screening 05/20/2027 HPV/Cotest 05/20/2027 Procedures Procedure Name Priority Date/Time Associated Diagnosis Comments XR CHEST 1 VIEW 08/10/2024 10:42 AM EDT GLUCOSE POCT GLUCOMETERS Routine 08/10/2024 10:30 AM EDT GLUCOSE POCT GLUCOMETERS Routine 08/10/2024 7:08 AM EDT POCT GLUCOSE Routine 08/04/2024 10:54 AM EDT 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, 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 (HCC) POCT GLYCOSYLATED HEMOGLOBIN (HGB A1C) Routine 08/04/2024 10:54 AM EDT 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, unspecified whether longterm insulin use (HCC) RAIL CAR LOADER INSERTION/REMOVAL OF CONTRACEPTIVE CAPSULE Routine 06/30/2024 10:51 AM EDT Nexplanon removal MM TOMOSYNTHESIS SCREENING BI 05/27/2024 4:48 PM EDT PAP SMEAR Routine 05/25/2023 12:00 AM EDT from Last 3 Months or Most Recently Relevant to Health Maintenance Results * XR chest 1 view (08/10/2024 10:42 AM EDT) Anatomical Region Laterality Modality Chest Radiographic Michelle ging 08/10/2024 10:4 2 AM EDT Impressions 08/10/2024 10:45 AM EDT NO PNEUMOTHORAX. LOW LUNG VOLUMES WITH BIBASILAR ATELECTASIS. Impression dictated by: Alin Orneals Jr., DRosyORosy 08/10/2024 10:43 AM Dictation Location: [place] [address] Transcribed By: [facility] 08/10/24 1043 Dictated By: Alin Ornelas Jr, DO 08/10/24 1042 Signed By: <Electronically signed by Alin Ornelas Jr, DO in OV> 08/10/24 1043 Narrative 08/10/2024 10:45 AM EDT [facility] [place] [address] [place] [address] XRay Report Signed Patient: Pee Whitehead MR#: [id number] : 1980 Acct:[id number] Age/Sex: 43 / F ADM Date: 08/10/24 Loc: [place] Room: Type: [facility] Attending Dr: Mendez Ortiz DO Copies to: [...] 1V portable Procedure Note Alin Ornelas Jr., DO - 09/08/2024 [facility] [place] [address] [place] [address] XRay Report Signed Patient: Pee Whitehead AMR#: [id number] : 1980Acct:[id number] Age/Sex: 43 / FADM Date: 08/10/24 Loc: [place] Room:Type: [facility] Attending Dr: Mendez Ortiz DO Copies to: [...] Jr., D.ORosy 08/10/2024 10:43 AM Dictation Location: [place] [address] Transcribed By: [facility] 08/10/24 1043 Dictated By: Alin Ornelas Jr, DO 08/10/24 1042 Signed By: <Electronically signed by Alin Ornelas Jr, DO inOV> 08/10/24 1043 us Mendez Ortiz DO IMG XR PROCEDURES Edited Re sult - Final * GLUCOSE POCT GLUCOMETERS (08/10/2024 10:30 AM EDT) Only the most recent of2 resultswithin the time period is included. [facility] GLUCOSE POC GLUCOMETERS 136 mg/dL 08/10/2024 10:36 AM EDT [facility] Comment: Random Glucose Reference Range is dependent on time and content of last meal. Glucose of more than 200 mg/dL in a nonstressed, ambulatory subject supports the diagnosis of Diabetes Mellitus. Blood (Blood) 08/10/2024 10: 30 AM EDT 08/10/2024 10:36 AM EDT Mendez Ortiz DO LAB BLOOD ORDERABLES [place] [address], * POCT glycosylated hemoglobin (Hb A1C) docked device (08/04/2024 10:54 AM EDT) Hemoglobin A1C 5.8 Blood Venous blood specimen / Unknown 08/04/2024 10:54 AM EDT Cleo Zambrano MD POINT OF CARE TEST ENTER/EDIT ORDERABLES Final Result * (ABNORMAL) POCT glucose manually resulted (08/04/2024 10:54 AM EDT) Glucose Blood, POC 131 mg/dL Blood Capillary blood specimen / Unknown 08/04/2024 10:54 AM EDT Cleo Zambrano MD POINT OF CARE TEST ENTER/EDIT ORDERABLES Final Result * Insertion/Removal of Contraceptive Capsule (06/30/2024 10:51 [...] PM EDT Narrative 05/27/2024 4:49 [place] [address] Mammography Report Signed Patient: PEE WHITEHEAD MR#: [id number] : 1980 Acct:[id number] Age/Sex: 43 / F ADM Date: 05/27/24 Loc: MAMMO Attending Dr: Roel Garber D.O. Ordering Physician: Roel Garber D.O. Results: Date of Service: 05/27/24 Follow Up: Procedure(s): MM tomosynthesis screening BI Accession Number(s): [id number] cc: Roel Garber D.O.; Loreto Mcnela NP Patient Name: PEE WHITEHEAD MR#: [id number] : 1980 Exam Date: 05/27/2024 Ordering Doctor: [...] Treatments None Family Cancers None LOCATION: [facility] BREAST COMPOSITION: There are scattered areas [...] D.O. Signed By: 05/27/241648 DD/ 47 TD/TT: Certified Ski Patroller: Procedure Note Radiology, Radiologist, MD - 05/27/2024 [place] [address] Mammography Report Signed Patient: PEE WHITEHEAD AMR#: [id number] : 1980Acct:[id number] Age/Sex: 43 / FADM Date: 05/27/24 Loc: MAMMO Attending Dr: Roel Garber D.O. Ordering Physician: Roel Garber D.O.Results: Date of Service: 05/27/24Follow Up: Procedure(s): MM tomosynthesis screening BI Accession Number(s): [id number] cc: Roel Garber D.O.; Loreto Mcneal NP Patient Name: PEE WHITEHEAD MR#: [id number] : 1980 Exam Date: 05/27/2024 Ordering Doctor: DR Roel Garber . RADIOLOGY REPORT PROCEDURE: MM TOMOSYNTHESIS SCREENING BI COMPARISON: MM DIAGNOSTIC MAMMO UNILAT RT, 03/25/2023. MG MAMM [id number] STELLA CAD, 03/16/2023. MM TOMOSYNTHESIS SCREENING BI, 11/07/2021. MM TOMOSYNTHESIS DIAGNOSTIC BI, 11/06/2020. INDICATIONS: Screening Calculator Name NCI Breast Cancer Risk Assessment Tool 5 Year Breast Cancer Risk Not Reported. Lifetime Breast Cancer Risk Not Reported. Personal Breast Cancer No Personal Ovarian Cancer No Treatments None Family Cancers None LOCATION: [facility] BREAST COMPOSITION: There are scattered areas [...] Serra D.O. Signed By:05/27/241648 DD/ 47 TD/TT: Certified Ski Patroller: us Roel Shirlene DO [facility] Final Result * Pap Smear (05/25/2023 12:00 AM EDT) Swab Cervical swab / Unknown us Roel Shirlene DO LAB CYTOLOGY ORDERABLES Final Re sult EXTERNAL LAB from Last 3 Months or Most Recently Relevant to Health Maintenance Insurance [employer] Care Teams Welding Machine Operator Plasma Arc Relationship Specialty [place] [address] [place], [place] [address], [place] [id number] PCP - General Family Medicine 04/14/22 Key Andrea NP [address] [place] [address] Referring Physician Family Medicine 08/13/23 Sasha Santos DO [address] [place] [address] Referring Physician Neurology 05/10/24 Mendez Ortiz DO [address] [place] [address] Otolaryngology 08/19/24
--- OUTSIDE RECORDS SUMMARY | 2024-09-15 06:50 | XMS_ITS | Encounter Summary ---
[facility] [id number] [address] [place] [address] Care Team Providers Care Timber Watchman Name Role Phone Services, [facility] Primary Care Provider Reason for Visit * Reason Onset Date Comments Med Refill 06/19/2017 Encounter Details Date Type Department Care Team (Late st Contact Info) Description 06/19/2017 [facility] [address] [facility] [phone] Amy Cerna LPN Social History Tobacco Use [...] documented as of this encounter Care Teams Timber Watchman Relationship Specialty Start Date End Date Services, [facility] [address] [place], [place] PCP - General Family Medicine 10/05/23 documented as of this encounter
--- OUTSIDE RECORDS SUMMARY | 2024-09-15 06:50 | XMS_ITS | Encounter Summary ---
Author Organization [facility] Address [address] [place] [address] Care Team Providers Care Wearing Apparel Folder Name Role Phone Zully Key AMPOULE SEALER Unavailable Shawna Dudley DO Primary Care Provider [phone] Sasha Santos DO Unavailable [phone] Mendez Ortiz DO Unavailable [phone] Encounter Details Date Type Department Care Team (Latest Contact Info) Description 09/01/2024 Travel Social History Tobacco Use Types Packs/Day [...] Visit [facility] [address] [place] [address] Cleo Zambrano MD [address] [place] [address] 05/31/2025 1:00 PM EDT Office Visit [facility] [address] [place] [address] [place] [address] Roel Garber DO [address] [place] [address] [place] [address] 08/18/2025 2:00 PM EDT Office Visit [facility] [place] [address] [place] [phone] Mendez Ortiz DO [address] [place] [address] documented as of this encounter Visit Diagnoses Not on filedocumented in this encounter Care Teams Wearing Apparel Folder Relationship Specialty Start Date End Date Shawna Dudley DO [address] [place] [address] PCP - General Family Medicine 04/14/22 Kye Andrea NP [address] [place] [address] Referring Physician Family Medicine 08/13/23 Sasha Santos DO [address] [place], [place] [address] Referring Physician Neurology 05/10/24 Mendez Ortiz DO [address] [place] [address] Otolaryngology 08/19/24 documented as of this encounter
--- OUTSIDE RECORDS SUMMARY | 2024-09-15 06:50 | XMS_ITS | Encounter Summary ---
Author Organization [facility] Address [id number] [address] [place] [address] Care Team Providers Care Pmo Manager Name Role Phone Services, [facility] Primary Care Provider Reason for Visit * Reason Comments Med Refill Encounter Details Date Type Department Care Team (Late st Contact Info) Description 08/11/2017 Refill [facility] [address] [place] [address] [place] [address] Francia High, RUBBER MOLDER[facility] [address] [place] [address] Social History Tobacco Use Types Packs/Day Years [...] documented as of this encounter Care Teams Pmo Manager Relationship Specialty Start Date End Date Services, [facility] [address] [place], [place] PCP - General Family Medicine 10/05/23 documented as of this encounter
--- OUTSIDE RECORDS SUMMARY | 2024-09-15 06:50 | XMS_ITS | Encounter Summary ---
Author Organization [facility] tem Address [id number] [address] [place] [address] Care Team Providers Care Director Geophysical Laboratory Name Role [facility] Primary Care Provider Reason for Visit * Reason Onset Date Comments Med Refill 11/10/2017 Encounter Details Date Type Department Care Team (Late st Contact Info) Description 11/10/2017 [facility] [address] [place] [phone] Amy Cerna LPN Social History Tobacco Use [...] documented as of this encounter Care Teams Director Geophysical Laboratory Relationship Specialty Start Date End Date Services, [facility] [address] [place], [place] PCP - General Family Medicine 10/05/23 documented as of this encounter
[2024-09-15 07:05] LABS: Hematocrit 44.3 % (36.0-48.0); Hemoglobin 14.8 g/dL (12.0-16.0); Immature Granulocytes Abs Auto 0.05 10^3/uL (0.00-0.03); Immature Granulocytes Pct Auto 0.5 % (0.0-0.5); Lymphocytes Absolute Auto 3.8 10^3/uL (1.2-3.8); Mean Corpuscular HGB Conc 33.4 g/dL (29.9-35.2); Mean Corpuscular Hemoglobin 28.5 pg (26.7-34.0); Mean Corpuscular Volume 85.2 fL (81.0-99.0); Platelet Count 351 10^3/uL (150-450); Red Blood Count 5.20 10^6/uL (4.20-5.40); White Blood Count 10.9 10^3/uL (4.0-11.0)
[2024-09-15 07:26] LABS: Anion Gap 18.1; Blood Urea Nitrogen 18.0 mg/dL (7.0-18.0); Calcium 9.4 mg/dL (8.5-10.1); Carbon Dioxide 25.2 mmol/L (21.0-32.0); Chloride 102 mmol/L (98-107); Estimated GFR (African America >60 (>=60 mL/min/1.73m^2); Estimated GFR (Non-African Ame >60 (>=60 mL/min/1.73m^2); Glucose 120 mg/dL (74-106); Potassium 3.3 mmol/L (3.5-5.1); Sodium 142 mmol/L (136-145)
[2024-09-15 08:20] LABS: Iron 68.0 ug/dL (50.0-170.0); Percent Iron Saturation 22.1 %; Total Iron Binding Capacity 307.0 ug/dL (250.0-450.0)
[2024-09-15 10:13] LABS: Folate 44.00 ng/mL (8.60-58.90)
[2024-09-16 04:07] LABS: Vitamin B12 521 pg/mL (232-1245)
== END 2024-09-15 06:48 | disposition home or self-care (01) ==
LOC: LAB 06:47
PROVIDERS: PCP Nurse Practitioner Family; Visit Provider Internal Medicine Hematology & Oncology
DX: D64.9 Anemia, unspecified (principal); D50.9 Iron deficiency anemia, unspecified; K90.9 Intestinal malabsorption, unspecified; Z15.09 Genetic susceptibility to other malignant neoplasm
CPT/HCPCS: 36415; 80048; 82306; 82607; 82728; 82746; 83540; 83550; 85025

== ENCOUNTER 2024-09-16 12:47 | Outpatient (OUT) | payer OTHER, SELFPAY ==
--- OUTSIDE RECORDS SUMMARY | 2024-06-14 07:30 | XMS_ITS ---
Author Organization The [facility] in [place] Address [address] [place] [address] Care Team Providers Care Traveling Phlebotomist Name Role Phone Villa CHERRY, Rory Primary Care Provider Unavailab Carmen Cuellar Unavailable [phone] REASON FOR VISIT MD Encounters Encounter Location Date Provider Diagnosis [facility] On[facility] [address] [place] [address] 06/14/2024 Carmen Fisher Plan Of Treatment Next Appt Details Provider Name:Carmen Fisher , 09/20/2024 11:30:00 AM, [address] [place], [address], Progress Notes * Karma WHITEHEADDOB:[birth year] (43 yo F)Acc No.[id number]:06/14/2024 UNLOCKED PROGRESS NOTE Progress Notes Patient: Karma MUNOZ Provider: Kerline Fisher M.D. :1980 A ge:43 Y S ex:Female Date:06/14/2024 Address:[address] [place] [address] Pcp:Rory Driver NP Subjective: * Chief Complaints: * 1 . MD. * Medical History: Objective: * Vitals: Assessment: Plan: * Treatment: * * Electronic signature of Jonny Fisher MD, [id number] on 09/16/2024 at 12:50 PM EDT Sign off status: Pending Visit Status: A NSPH (Voice) * Provider: Kerline Fisher M.D. Date: 0 06/14/2024 Generated for Travis shoemaker/Catherine/Sonal on: 0 09/16/2024 12:50 PM EDT
--- OUTSIDE RECORDS SUMMARY | 2024-06-15 04:30 | XMS_ITS ---
Author Organization [facility] Address [address] [place] [address] Care Team Providers Care Lens Matcher Name Role Phone Chinyere Calix Primary Care Provider [phone] REASON FOR VISIT 3 month f/u Encounters Encounter Location Date Provider Diagnosis [facility] [address] [place] [address] 06/15/2024 Chinyere Calix Plan Of Treatment Next Appt Details Provider Name:Chinyere Calix, 09/20/2024 03:45:00 PM, [address], [place], [address], Progress Notes * PEE WHITEHEADDOB:[birth year] (43 yo F)Acc No.[id number]:06/15/2024 Behavioral Health Patient: Miryam PEE CROFT Appointment Provider: Precious Calix :1980 A ge:43 Y S ex:Female Date:06/15/2024 Address:[facility] [address] [facility] [facility] Subjective: * Chief Complaints: * 1 . 3 month f/u. * Medical History: Objective: * Vitals: Assessment: Plan: * Treatment: * Images: * Electronic signature of FAWN Acosta FNP on 09/16/2024 at 12:50 PM EDT Sign off status: Pending * Appointment Provider: Precious Calix Date: 0 06/15/2024 Generated for Travis shoemaker/Catherine/Magdalenoitting on: 0 09/16/2024 12:50 PM EDT
--- OUTSIDE RECORDS SUMMARY | 2024-08-25 05:30 | XMS_ITS ---
Author Organization [facility] vices Address [address] [place] [phone] Care Team Providers Care Courtroom Reporter Name Role Phone Loreto Mcneal Primary Care Provider Monique Nuñez Unavailable [phone] Deepika Banks Unavailable [phone] REASON FOR VISIT Recall (A) 43 Social History Sex Assigned At : Social History Observation Description Sex Assigned At Female Encounters Encounter Location Date Provider Diagnosis [facility] [address] [place], [place] [phone] 08/25/2024 Deepika Banks Plan Of Treatment Next Appt Details Provider Name:Loreto ludwig, 02/27/2025 08:45:00 AM, [address] [place] [address], [phone], Provider Name:Fara Sampson , 03/16/2025 10:45:00 AM, [address] [place] [address], [phone], Progress Notes * Karma SR ADOB: (43 yo F)Acc No.[id number]:08/25/2024 Patient: Miryam Karma KOWALSKI Provider: Ana Banks DDS :1980 A ge:43 Y S ex:Female Date:08/25/2024 Address:[address] [place], [place]-[address] Pcp:Loreto Mcneal Subjective: * Chief Complaints: * 1 . Recall (A) 43. * Medical History: Objective: * Vitals: Assessment: Plan: * Treatment: * Billing Information: * Visit Code: * Procedure Codes: * Electronic signature of Brenna Banks DDS on 09/16/2024 at 12:50 PM EDT Sign off status: Pending * Provider: Ana Banks DDS Date: 0 08/25/2024 Generated for Travis Hernandez/Sonal on: 0 09/16/2024 12:50 PM EDT
--- OUTSIDE RECORDS SUMMARY | 2024-09-13 07:00 | XMS_ITS ---
Author Organization The [facility] in [place] Address [address] [place] [address] Care Team Providers Care Identity Access Management Architect Name Role Phone Villa CHERRY, Rory Primary Care Provider Unavailab Carmen Cuellar Unavailable [phone] REASON FOR VISIT MD Encounters Encounter Location Date Provider Diagnosis The [facility] [address] [place] [address] 09/13/2024 Carmen Fisher Plan Of Treatment Next Appt Details Provider Name:Carmen Fisher , 09/20/2024 11:30:00 AM, [address] [place], [address], Progress Notes * Karma WHITEHEADDOB:[birth year] (43 yo F)Acc No.[id number]:09/13/2024 UNLOCKED PROGRESS NOTE Progress Notes Patient: Karma MUNOZ Provider: Kerline Fisher M.D. :1980 A ge:43 Y S ex:Female Date:09/13/2024 Address:[address] [place] [address] Pcp:Rory Driver NP Subjective: * Chief Complaints: * 1 . MD. * Medical History: Objective: * Vitals: Assessment: Plan: * Treatment: * * Electronic signature of Jonny Fisher MD, [id number] on 09/16/2024 at 12:50 PM EDT Sign off status: Pending Visit Status: C ANC (Cancelled) * Provider: Kerline Fisher M.D. Date: 0 09/13/2024 Generated for Travis shoemaker/Catherine/Sonal on: 0 09/16/2024 12:50 PM EDT
--- OUTSIDE RECORDS SUMMARY | 2024-09-13 07:30 | XMS_ITS ---
Author Organization The [facility] in [place] Address [address] [place] [address] Care Team Providers Care Underground Supervisor Name Role Phone Villa CHERRY, Rory Primary Care Provider Unavailab Carmen Culelar Unavailable [phone] REASON FOR VISIT MD Encounters Encounter Location Date Provider Diagnosis The [facility] On[facility] [address] [place] [address] 09/13/2024 Carmen Fisher Plan Of Treatment Next Appt Details Provider Name:Carmen Fisher , 09/20/2024 11:30:00 AM, [address] [place], [address], Progress Notes * Karma WHITEHEADDOB:[birth year] (43 yo F)Acc No.[id number]:09/13/2024 UNLOCKED PROGRESS NOTE Progress Notes Patient: Karma MUNOZ Provider: Kerline Fisher M.D. :1980 A ge:43 Y S ex:Female Date:09/13/2024 Address:[address] [place] [address] Pcp:Rory Driver NP Subjective: * Chief Complaints: * 1 . MD. * Medical History: Objective: * Vitals: Assessment: Plan: * Treatment: * * Electronic signature of Jonny Fisher MD, [id number] on 09/16/2024 at 12:51 PM EDT Sign off status: Pending Visit Status: C ANC (Cancelled) * Provider: Kerline Fisher M.D. Date: 0 09/13/2024 Generated for Travis shoemaker/Catherine/Sonal on: 0 09/16/2024 12:51 PM EDT
--- OUTSIDE RECORDS SUMMARY | 2024-09-16 12:50 | XMS_ITS | Encounter Summary ---
Author Organization [facility] Address [id number] [address] [place] [address] Care Team Providers Care Benzene Worker Name Role Phone Services, [facility] Primary Care Provider Encounter Details Date Type Department Care Team (Late st Contact Info) Description 05/28/2020 Telephone [facility] [address] [place] [phone] Zelalem Pathak MD [address] Provider retired 05/31/24 [place] [address] Social History Tobacco Use Types [...] documented as of this encounter Care Teams Benzene Worker Relationship Specialty Start Date End Date Services, [facility] [address] [place], [place] PCP - General Family Medicine 10/05/23 documented as of this encounter
--- OUTSIDE RECORDS SUMMARY | 2024-09-16 12:50 | XMS_ITS | Encounter Summary ---
Author Organization [facility] tem Address [facility] [id number] [address] 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 She cannot deal with [facility] [...] documented as of this encounter Care Teams Reel And Rewinder Operator Relationship Specialty Start Date End Date Services, [facility] [address] [place], [place] PCP - General Family Medicine 10/05/23 documented as of this encounter
--- OUTSIDE RECORDS SUMMARY | 2024-09-16 12:50 | XMS_ITS | Encounter Summary ---
Author Organization [facility] Address [address] [facility], [address] [place] [address] Care Team Providers Care Box Folding Machine Operator Name Role Phone Loreto Mcneal APRN - JO ANN Primary Care Prov ider Encounter Details Date Type Department Care Team (Late Contact Info) Description 01/12/2024 Orders Only [facility] UR[facility]Y [address] [place] [phone] Provider, MD Ana Social History Tobacco [...] Description 11/10/2024 11:30 AM EDT Office Visit [facility]OLOG[address] [place] [address] Karen Cotter, RESISTOR INSPECTOR - TRAILHEAD MAINTENANCE WORKER [address] [facility] [address] [place] [address] 1 year KUB documented as of this [...] on filedocumented in this encounter Care Teams Box Folding Machine Operator Relationship Specialty Start Date End Date Loreto Mcneal APRN - MANNEQUIN COLORING ARTIST [address] [place] [address] PCP - General 11/11/23 documented as of this encounter
--- OUTSIDE RECORDS SUMMARY | 2024-09-16 12:50 | XMS_ITS | Encounter Summary ---
Author Organization [facility] [employer] Sys tem Address [id number] [address] [place] [address] Care Team Providers Care Apparel Cutter Name Role Phone Services, [facility] Primary Care Provider Encounter Details Date Type Department Care Team (Late st Contact Info) Description 05/02/2020 Telephone [facility] Physicians Family Medicine [address] [place] [address] Austin Yin CNA Social History Tobacco Use [...] will replace metformin rx rx sent [facility] Please call [facility] and d/c the metformin rx * Telephone Encounter - Austin Yin CMA - 05/02/2020 4:42 PM EST Spoke with patient regarding the actos prescription. Patient has already picked up the metformin but I informed her not to take this medication and to take the actos instead. Patient verbalized understanding. Called [facility] in [place] and left message for them [...] documented as of this encounter Care Teams Apparel Cutter Relationship Specialty Start Date End Date [facility], [facility] [address] [place], [place] PCP - General Family Medicine 10/05/23 documented as of this encounter
--- OUTSIDE RECORDS SUMMARY | 2024-09-16 12:50 | XMS_ITS | Encounter Summary ---
[facility] Address [id number] [address] 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
--- OUTSIDE RECORDS SUMMARY | 2024-09-16 12:50 | XMS_ITS | Encounter Summary ---
Author Organization [facility] Address [address] [place] [address] Care Team Providers Care Patient Relations Manager Name Role Phone Zully Key LABOR REPRESENTATIVE Unavailable Shawna Dudley DO Primary Care Provider [phone] Sasha Santos DO Unavailable [phone] Mendez Ortiz DO Unavailable [phone] Encounter Details Date Type Department Care Team (Late Contact Info) Description 06/02/2023 Orders Only [facility] [address] [address] [facility] [address] [place] [address] Becky Silvestre LPN [address] [place] [address] Social History Tobacco Use Types [...] Visit [facility] [address] [place] [address] Cleo Zambrano MD [address], [address] [place] [address] 05/31/2025 1:00 PM EDT Office Visit [facility] [address] [place] [address] Roel Garber, DO [address] [place], [place] [address] 08/18/2025 2:00 PM EDT Office Visit [facility] E[facility] [address] [place] [address] Mendez Ortiz DO [address] [place] [address] documented as of this encounter Procedures Procedure Name Priority Date/Time Associated Diagnosis Comments PAP SMEAR Routine 05/25/2023 12:00 AM EDT documented in this encounter Results * Pap Smear (05/25/2023 12:00 AM EDT) Swab Cervical swab / Unknown Roel Garber DO LAB CYTOLOGY ORDERABLES Final Re sult EXTERNAL LAB documented in this encounter Visit Diagnoses Not on filedocumented in this encounter Care Teams Patient Relations Manager Relationship Specialty Start Date End Date Shawna Dudley DO [address] [place] [address] PCP - General Family Medicine 04/14/22 Key Andrea, OJ ANN [address] [place] [address] Referring Physician Family Medicine 08/13/23 Sasha Santos DO [address] [place] [address] Referring Physician Neurology 05/10/24 Mendez Ortiz DO [address] [place] [address] Otolaryngology 08/19/24 documented as of this encounter
--- OUTSIDE RECORDS SUMMARY | 2024-09-16 12:50 | XMS_ITS | Encounter Summary ---
Author Organization [facility] Address [address] [place] [address] Care Team Providers Care Lithoduplicator Operator Name Role Phone Zully, Key BOOK JOGGER Unavailable Shawna Dudley DO Primary Care Provider [phone] Ssaha Santos DO Unavailable [phone] Mendez Ortiz DO Unavailable [phone] Encounter Details Date Type Department Care Team (Late st Contact Info) Description 06/07/2024 Abstract [facility] OB [address] [place] [address] Bela Ribeiro LPN Social History Tobacco [...] Visit [facility] NATHANAEL [address] [place] [address] Cleo Zambrano MD [address] [place] [address] 05/31/2025 1:00 PM EDT Office Visit [facility] OB [address] [place] [address] Roel Garber DO [address] [place] [address] 08/18/2025 2:00 PM EDT Office Visit [facility] [address] [place] [address] Mendez Ortiz DO [address] [place] [address] documented as of this encounter Visit Diagnoses Not on filedocumented in this encounter Care Teams Lithoduplicator Operator Relationship Specialty Start Date End Date Shawna Dudley DO [address] [place], [place] [address] PCP - General Family Medicine 04/14/22 Key Andrea NP [address] [place] [address] Referring Physician Family Medicine 08/13/23 Sasha Santos DO [address] [place], [place] [address] Referring Physician Neurology 05/10/24 Mendez Ortiz DO [address] [place] [address] Otolaryngology 08/19/24 documented as of this encounter
--- OUTSIDE RECORDS SUMMARY | 2024-09-16 12:50 | XMS_ITS | Encounter Summary ---
Author Organization [facility] tem Address [id number] [address] [place] [address] Care Team Providers Care Lance Crewmember Name Role Phone Services, [facility] Primary Care Provider Reason for Visit * Reason Comments Med Refill Encounter Details Date Type Department Care Team (Late st Contact Info) Description 12/04/2021 Refill [facility] [address] [place] [address] Gil Alba, PA [address] [facility] 2nd [address] [place], [place] [id number] Social History Tobacco Use Types Packs/Day Years [...] requests. The patient must contact our office. [phone] documented in this encounter Plan of Treatment Not on file documented as of this encounter Visit Diagnoses Not on filedocumented in this encounter Additional Health Concerns Assessment Noted Time PHQ-9 Depression Total Score: 0 05/03/19 21 3:00 PM EST A Body Mass Index follow-up plan has been documented for the patient 02/10/2020 2:00 PM EST documented as of this encounter Care Teams Lance Crewmember Relationship Specialty Start Date End Date Services, [facility] [address] [place], [place] PCP - General Family Medicine 10/05/23 documented as of this encounter
--- OUTSIDE RECORDS SUMMARY | 2024-09-16 12:50 | XMS_ITS | Encounter Summary ---
Author Organization [facility] Address [address] [place] [address] Care Team Providers Care Storage Worker Name Role Phone Key Andrea PET CARE TECHNICIAN Unavailable Shawna Dudley DO Primary Care Provider [phone] Sasha Santos DO Unavailable [phone] Mendez Ortiz DO Unavailable [phone] Reason for Visit * Reason Comments Med Refill Encounter Details Date Type Department Care Team (Late st Contact Info) Description 05/19/2024 Refill [facility] [address] [facility] [address] [place] [address] Archana Naylor, PLANT MACHINIST-PUFF IRONER [address] [facility] [address] [place] [address] Rash and other nonspecific skin [...] [facility] [address] [place] [address] Cleo Zambrano MD [address] [place] [address] 05/31/2025 1:00 PM EDT Office Visit [facility] OB [address] [place] [address] Roel Garber DO [address] [place] [address] 08/18/2025 2:00 PM EDT Office Visit [facility] [address] [place] [address] Mendez Ortiz DO [address] [place] [place] [address] documented as of this encounter Visit Diagnoses Diagnosis Rash and other nonspecific skin eruption documented in this encounter Care Teams Storage Worker Relationship Specialty Start Date End Date Shawna Dudley DO [address] [place] [address] PCP - General Family Medicine 04/14/22 Key Andrea, JO ANN [address] [place] [address] Referring Physician Family Medicine 08/13/23 Sasha Santos DO [address] [place] [address] Referring Physician Neurology 05/10/24 Mendez Ortiz DO [address] [place] [address] Otolaryngology 08/19/24 documented as of this encounter
--- OUTSIDE RECORDS SUMMARY | 2024-09-16 12:50 | XMS_ITS | Encounter Summary ---
Author [facility] Address [facility]-[id number] [address] [place] [address] Care Team Providers Care Consultant Nurse Name Role Phone Services, [facility] Primary Care Provider Reason for Visit * Reason Onset Date Comments Med Refill 03/08/2020 Encounter Details Date Type Department Care Team (Late st Contact Info) Description 03/08/2020 Refill [facility] Family Medicine [address] [place] [address] Amy Cerna LPN Social History Tobacco Use [...] documented as of this encounter Care Teams Consultant Nurse Relationship Specialty Start Date End Date Services, [facility] [address] [place], [place] PCP - General Family Medicine 10/05/23 documented as of this encounter
--- OUTSIDE RECORDS SUMMARY | 2024-09-16 12:50 | XMS_ITS | Clinical Summary ---
Author Organization [facility] tem Address [id number] [address] [place] [address] Care Team Providers Care Welfare Service Aide Name Role Phone Services, [facility] Primary Care Provider Allergies Active Allergy Reactions Criticality Noted Date Comments Citalopram 09/15/2016 Cephalexin 09/15/2016 Metformin High 04/15/2022 Severe hypoglycemia Poison Devorah Extract 04/15/2022 Medications tbnxqqys-alpn-LL-c alcium &mins (THERAGRAN-M) 9 mg iron-400 mcg tablet Take 1 tablet by mouth in the morning. Active blood-glucose meter (TRUE METRIX GLUCOSE METER) [facility] use to test BLOOD SUGAR TWICE DAILY [...] stripIndications:T ype 2 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s ([facility]) Use to test BLOOD SUGAR TWICE DAILY [...] (10/11/2018): Added automatically from request for surgery [id number] Lumbosacral spondylosis without myelopathy 07/22 Overview (07/22/2018): Added automatically from request for surgery [id number] PTSD (post-traumatic stress disorder) 06/16/2018 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 Cervical disc displacement 09/21/2017 Postoperative abscess 09/28/2016 Acute cholecystitis 09/15/2016 Diverticulitis Encounters Date Type Department Care Team Description 09/06/2024 [facility] 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 [...] history exists Medical Devices Implanted Type Area Athletic Monitor Device Identifier Shelf Expiration Date Model / Serial / Lot [place] Sut 5.5mm 2 Ft Crkscr Fbrwr Shldr 3 Pk 14.7mm Strl Ea=Bill-Only Rpl [id number] - [id number] Implanted:Qty: 1 on 05/15/2022 by Chepe Ingram MD at [facility] [place] Right: Shoulder Arthrex 05/30/2026 AR-1927 PSF-3 / / [id number] Arthreximplant System, Hand/Wrist Internal Brace Ligament Augmentation Repair Implanted:Qty: 1 on 08/18/2024 by Chepe Ingram MD at [facility] Orthopedic Implant Right: Wrist Arthrex [id number] 04/01/2029 AR-8978 -CP / / [id number] Arthrex Dx Swivelock Sl, With Forked Eyelet, 3.5 X 8.5mm Implanted:Qty: 1 on 08/18/2024 by Chepe Ingram MD at [facility] Orthopedic Implant Right: Wrist Arthrex [id number] 01/30/2028 AR-8978 P / / [id number] Arthrex Dx Swivelock Sl, With Forked Eyelet, 3.5 X 8.5mm Implanted:Qty: 1 on 08/18/2024 by Chepe Ingram MD at [facility] Orthopedic Implant Right: Wrist Arthrex [id number] 12/30/2024 AR-8978 P / / [id number] 0.062 9inch Yasmine Pin Implanted:Qty: 1 on 08/18/2024 by Chepe Ingram MD at [facility] Pin Right: Wrist [employer] [id number] 9-62 / / Explanted Type Area Athletic Monitor Device Identifier Shelf Expiration Date Model / Serial / Lot 9 Inch 0.062 Yasmine Pin Explanted:Qty: 1 on 08/18/2024 by Chepe Ingram MD at [facility] Pin Right: Wrist Celestine [employer] Roseanne [id number] 2 / / Procedures Procedure Name Priority Date/Time Associated Diagnosis Comments BEDSIDE GLUCOSE Routine 08/18/2024 2:22 PM EDT XR WRIST RT MIN 3 VWS Routine 08/18/2024 2:11 PM EDT ANESTHESIA INTUBATION Routine 08/18/2024 12:30 PM EDT NH TRANSECT OTHR SPINAL N,XTRADURAL 08/18/2024 12:15 PM EDT Pre-procedural laboratory examination, Extensor tenosynovitis of finger, Traumatic rupture of other ligament of right wrist initial encounter, Colles' fracture of right radius initial encounter for closed fracture Case Notes 1030 Special Needs ARTHREX INTERNAL BRACEC-ARM NH EXCIS SYNOV WRIST,EXTENS TENDON 08/18/2024 12:15 PM EDT Pre-procedural laboratory examination, Extensor tenosynovitis of finger, Traumatic rupture of other ligament of right wrist initial encounter, Colles' fracture of right radius initial encounter for closed fracture Case Notes 1030 Special Needs ARTHREX INTERNAL BRACEC-ARM NH REVISE WRIST JOINT,CARPAL INSTABIL 08/18/2024 12:15 PM EDT Pre-procedural laboratory examination, Extensor tenosynovitis of finger, Traumatic rupture of other ligament of right wrist initial encounter, Colles' fracture of right radius initial encounter for closed fracture Case Notes 1030 Special Needs ARTHREX INTERNAL BRACEC-ARM CHG SONO GUIDE NEEDLE BIOPSY Routine 08/18/2024 11:47 AM EDT NH INJECTION AA&/STRD BRACHIAL PLEXUS W/IMG GDN Routine [...] - 99 mg/dL 08/18/2024 2:28 PM EDT [facility] Blood specimen (specimen) 08/18/2024 2:22 PM EDT 08/18/2024 2:28 PM EDT Chepe Ingram MD POINT OF CARE TEST ORDERAB LES Final Result [address] [address], [place] * X-ray wrist right minimum 3 [...] DIAGNOSTIC IMAGING ORD ERABLES Final Result * NH AN ELECTIVE SUPRAGLOTTIC AIRWAY (08/18/2024 12:30 PM [...] Final R esult * PM PERIPHERAL BLOCK, NH INJECTION AA&/STRD BRACHIAL PLEXUS W/IMG GDN, CHG [...] Chlorhexidine and Patient Draped Monitoring: Heart Rate, Mechanical Tech, Continuous Pulse Ox and Blood Pressure Oxygen [...] Negative Negative, Indeterminate 08/18/2024 12:19 PM EDT [facility] Urine 08/18/2024 10:4 7 AM EDT 08/18/2024 12:19 PM EDT us Chepe Ingram MD POINT OF CARE TEST ORDERAB LES Final Result Performing Organization Address City/[facility]/ZIP Co de Phone Number [address] [address], * Ambulatory referral to Podiatry (01/03/2019) 01/03/2019 us Zelalem Pathak MD OUTPATIENT REFERRAL ORDERABL ES Final Result MANUALLY TRANSCRIBED RESULTS from Last 3 Months or Most Recently Relevant to Health Maintenance Insurance [employer] [employer] Advance Directives * Full Code (Latest Code Status on File) Date Activated Date Inactivated Comments 09/16/2016 3:19 PM 09/17/2016 8:38 PM Care Teams Welfare Service Aide Relationship Specialty Start Date End Date Services, [facility] [address] [place] PCP - General Family Medicine 10/05/23
--- OUTSIDE RECORDS SUMMARY | 2024-09-16 12:50 | XMS_ITS | Patient Health Record ---
Author Organization [facility] in [place] Address [address] [place] [address] Care Team Providers Care Gis Professor Name Role Phone Rory Driver NP Primary Care Provider Unavailab Luther Cuellarorva Unavailable [phone] Joy Yung Unavailable [phone] KedarVeena Unavailable [phone] Allergies Allergen (clinical drug ingredient) Drug/Non Drug Allergy documented on EMR Reaction Allergy Type Onset Date Status citalopram CeleXA Unknown Drug Allergy Active Keflex Unknown Drug Allergy Active metformin Metformin Unknown Drug Allergy Active Results Component Value Reference Range Notes CBC AUTO DIFF (Not yet revie wed by provider) Interpretation: Performing Lab: Notes/Report: [facility] , White Blood Count 8.4 4.0-11.0 [...] see note ML - [facility] LB IRON AND TIBC (Not yet revie wed by provider) Interpretation: Performing Lab: Notes/Report: [facility] , Iron 65.0 50.0-170.0 ug/dL Total Iron Binding Capacity 352.0 250.0-450.0 ug/dL Percent Iron Saturation 18.5 Performing Lab: see note ML - [facility] LB TSH (Not yet reviewed by pro vider) Interpretation: Performing Lab: Notes/Report: [facility] , Thyroid Stimulating Hormone 1.075 0.358-3.740 uIU/mL Performing Lab: see note - [facility] LB PROF CHEM 8 (BAS METB) (Not yet reviewed by provider) Interpretation: Performing Lab: Notes/Report: [facility] , Sodium 141 136-145 mmol/L Potassium [...] 8.5-10.1 mg/dL Performing Lab: see note - [facility] LB VITAMIN D 25 [place] (Not yet rev iewed by provider) Interpretation: Performing Lab: Notes/Report: [facility] , Vitamin D 40.9 <20 ng/mL Vit D deficient 20-<30 ng/mL Vit D insufficient 30-100 ng/mL Vit D sufficient >100 ng/mL Potential Toxicity Performing Lab: see note ML - [facility] LB TSH W/ REFLEX FT4 (Not yet r eviewed by provider) Interpretation: Performing Lab: Notes/Report: [facility] , TSH W/ REFLEX FT4 1.272 0.358-3.740 uIU/mL Performing Lab: see note ML - [facility] LB XR foot LT min 3V (Not yet r eviewed by provider) Interpretation: Performing Lab: Notes/Report: Source Facility: [place] [address] [place] [address] XRay Report Signed Patient: PEE WHITEHEAD MR#: [id number] : 1980 Acct:[id number] Age/Sex: 43 / F ADM Date: 04/06/24 Loc: RAD Attending Dr: Joy Yung D.P.M. Ordering Physician: Joy Yung D.P.M. Date of Service: 04/06/24 Procedure(s): XR foot LT min 3V Accession Number(s): [id number] cc: Joy Yung D.P.M.; Loreto Mcneal RECORDS ASSISTANT [place] [address] Patient Name: PEE WHITEHEAD MRN: [id number] date: 1980 Sex: F Assigned Patient Location: [facility] Current Patient Location: ED.[facility] Accession/Order Number: [id number] Exam Date: 04/06/2024 11:15 Report Date: 04/08/2024 [...] Signed By: 04/08/24 1131 DD/ 1128 TD/TT: Director Of Neurology: [place] [address] XRay Report Signed Patient: PEE WHITEHEAD MR#: [id number] : 1980 Acct:[id number] Age/Sex: 43 / F ADM Date: 04/06/24 Loc: RAD Attending Dr: Joy Yung D.P.M. Ordering Physician: Joy Yung D.P.M. Date of Service: 04/06/24 Procedure(s): XR miryam t LT min 3V Accession Number(s): [id number] cc: Joy Yung D.P.M.; Loreto Mcneal NP [place] [address] Patient Name: PEE WHITEHEAD MRN: [id number] date: 1980 Sex: F Assigned Patient Location: [facility] Current Patient Location: ED.MAIN Accession/Order Numb er: [id number] Exam Date: 04/06/2024 11:15 Report Date: 04/08/2024 [...] Signed By: 04/08/24 1131 DD/ 1128 TD/TT: Director Of Neurology: XR ankle LT min 3V (Not yet reviewed by provider) Interpretation: Performing Lab: Notes/Report: Source Facility: [place] [address] XRay Report Signed Patient: PEE WHITEHEAD MR#: [id number] : 1980 Acct:[id number] Age/Sex: 43 / F ADM Date: 04/06/24 Loc: RAD Attending Dr: Joy Yung D.P.M. Ordering Physician: Joy Yung D.P.M. Date of Service: 04/06/24 Procedure(s): XR ankle LT min 3V Accession Number(s): [id number] cc: Joy Yung D.P.M.; Loreto Mcneal RECORDS ASSISTANT [place] [address] Patient Name: PEE WHITEHEAD MRN: [id number] date: 1980 Sex: F Assigned Patient Location: [facility] Current Patient Location: ED.MAIN Accession/Order Number: [id number] Exam Date: 04/06/2024 11:15 Report Date: 04/08/2024 [...] By: Domenica Schmidt M.D. Signed By: 04/08/24 113 DD/ 27 TD/TT: Director Of Neurology: [place] [address] XRay Report Signed Patient: EPE WHITEHEAD MR#: [id number] : 1980 Acct:[id number] Age/Sex: 43 / F ADM Date: 04/06/24 Loc: RAD Attending Dr: Joy Yung D.P.M. Ordering Physician: Joy Yung D.P.M. Date of Service: 04/06/24 Procedure(s): XR ank le LT min 3V Accession Number(s): [id number] cc: Joy Yung D.P.M.; Loreto Mcneal [place] [address] Patient Name: PEE WHITEHEAD MRN: [facility]:[id number] date: 1980 Sex: F Assigned Patient Location: [facility] Current Patient Location: ED.MAIN Accession/Order Numb er: [id number] Exam Date: 04/06/2024 11:15 Report Date: 04/08/2024 [...] Signed By: 04/08/24 1131 DD/ 1128 TD/TT: Director Of Neurology: CBC AUTO DIFF (Not yet revie wed by provider) Interpretation: Performing Lab: Notes/Report: [facility] , White Blood Count 8.7 4.0-11.0 [...] see note ML - [facility] LB IRON AND TIBC (Not yet revie wed by provider) Interpretation: Performing Lab: Notes/Report: [facility] , Iron 44.0 50.0-170.0 ug/dL Total Iron Binding Capacity 260.0 250.0-450.0 ug/dL Percent Iron Saturation 16.9 Performing Lab: see note ML - [facility] LB PROF 14(COMP METB) (Not yet reviewed by provider) Interpretation: Performing Lab: Notes/Report: [facility] , Sodium 139 136-145 mmol/L Potassium [...] 1.0 Performing Lab: see note ML - [facility] LB Vitamin B12 (Not yet reviewe d by provider) Interpretation: Performing Lab: Notes/Report: [facility] , Vitamin B12 135 907-8079 pg/mL Performed at: - [facility] [address] [id number] Ball Worker: Harry Rodriguez PhD, Phone: [phone] Performing Lab: see note - [facility] LB CBC AUTO DIFF (Not yet revie wed by provider) Interpretation: Performing Lab: Notes/Report: [facility] , White Blood Count 10.9 4.0-11.0 10 3/uL Red Blood Count 5.20 4.20-5.40 10 6/uL Hemoglobin 14.8 12.0-16.0 g/dL Hematocrit 44.3 36.0-48.0 % Mean Corpuscular Volume 85.2 81.0-99.0 fL Mean Corpuscular Hemoglobin 28.5 26.7-34.0 pg Mean Corpuscular HGB Conc 33.4 29.9-35.2 g/dL Red Cell Distribution Width 14.6 11.0-15.0 % Platelet Count 351 150-450 10 3/uL Mean Platelet Volume 10.3 9.5-13.5 fL Neutrophils Percent Auto 56.9 43.0-75.0 % Lymphocytes Percent Auto 34.7 20.5-60.0 % Monocytes Percent Auto 6.0 1.7-12.0 % Eosinophils Percent Auto 1.6 0.9-7.0 % Basophils Percent Auto 0.3 0.2-2.0 % Immature Granulocytes Pct Auto 0.5 0.0-0.5 % Neutrophils Absolute Auto 6.2 1.4-6.5 10 3/uL Lymphocytes Absolute Auto 3.8 1.2-3.8 10 3/uL Monocytes Absolute Auto 0.7 0.3-0.8 10 3/uL Eosinophils Absolute Auto 0.2 0.0-0.7 10 3/uL Basophils Absolute Auto 0.0 0.0-0.1 10 3/uL Immature Granulocytes Abs Auto 0.05 0.00-0.03 10 3/uL Performing Lab: see note ML - [facility] LB FOLATE (Not yet reviewed by provider) Interpretation: Performing Lab: Notes/Report: [facility] , Folate 44.00 8.60-58.90 ng/mL Performing Lab: see note - [facility] LB IRON AND TIBC (Not yet revie wed by provider) Interpretation: Performing Lab: Notes/Report: [facility] , Iron 68.0 50.0-170.0 ug/dL Total Iron Binding Capacity 307.0 250.0-450.0 ug/dL Percent Iron Saturation 22.1 Performing Lab: see note - [facility] LB LAB TESTING (Not yet reviewe d by provider) Interpretation: Performing Lab: Notes/Report: [id number] Ferritin [facility] , Miscellaneous Test COMMENT . Test Ordered: [id number] Ferritin Ferritin 730 [H ] ng/mL Reference Range: 15-150 Performed at: - [facility] [address] [id number] Ball Worker: Harry Rodriguez PhD, Phone: [phone] Performing Lab: see note - [facility] LB PROF CHEM 8 (BAS METB) (Not yet reviewed by provider) Interpretation: Performing Lab: Notes/Report: [facility] , Sodium 142 136-145 mmol/L Potassium 3.3 3.5-5.1 mmol/L Chloride 102 98-107 mmol/L Carbon Dioxide 25.2 21.0-32.0 mmol/L Anion Gap 18.1 Glucose 120 74-106 mg/dL Blood Urea Nitrogen 18.0 7.0-18.0 mg/dL Creatinine 0.92 0.55-1.02 mg/dL Estimated GFR ( Regina >60 >=60 mL/min/1.73m 2 Estimated GFR (Non- Susanne >60 >=60 mL/min/1.73m 2 BUN Creatinine Ratio 19.6 Calcium 9.4 8.5-10.1 mg/dL Performing Lab: see note ML - [facility] LB VITAMIN D 25 [place] (Not yet rev iewed by provider) Interpretation: Performing Lab: Notes/Report: [facility] , Vitamin D 40.8 <20 ng/mL Vit D deficient 20-<30 ng/mL Vit D insufficient 30-100 ng/mL Vit D sufficient >100 ng/mL Potential Toxicity Performing Lab: see note - [facility] LB Vitamin B12 (Not yet reviewe d by provider) Interpretation: Performing Lab: Notes/Report: [facility] , Vitamin B12 984 351-7057 pg/mL Performed at: [facility] [address] [id number] Ball Worker: Harry Rodriguez PhD, Phone: [phone] Performing Lab: see note - [facility] VITAMIN D 25 [place] (Not yet rev iewed by provider) Interpretation: Performing Lab: Notes/Report: [facility] , Vitamin D 44.7 <20 ng/mL Vit D deficient 20-<30 ng/mL Vit D insufficient 30-100 ng/mL Vit D sufficient >100 ng/mL Potential Toxicity Performing Lab: see note - [facility] LB FERRITIN (Not yet reviewed b y provider) Interpretation: Performing Lab: Notes/Report: [facility] , Ferritin 505.0 8.0-252.0 ng/mL Performing Lab: see note - [facility] LB Vitamin B12 (Not yet reviewe d by provider) Interpretation: Performing Lab: Notes/Report: [facility] , Vitamin B12 914 498-8503 pg/mL Performed at: [facility] [address] [id number] Ball Worker: Harry Rodriguez PhD, Phone: [phone] Performing Lab: see note LC - [facility] LB IRON AND TIBC (Not yet revie wed by provider) Interpretation: Performing Lab: Notes/Report: [facility] , Iron 86.0 50.0-170.0 ug/dL Total Iron Binding Capacity 346.0 250.0-450.0 ug/dL Percent Iron Saturation 24.9 Performing Lab: see note ML - [facility] LB FERRITIN (Not yet reviewed b y provider) Interpretation: Performing Lab: Notes/Report: [facility] , Ferritin 622.0 8.0-252.0 ng/mL Performing Lab: see note ML - [facility] LB CBC AUTO DIFF (Not yet revie wed by provider) Interpretation: Performing Lab: Notes/Report: [facility] , White Blood Count 10.1 4.0-11.0 [...] see note ML - [facility] LB Vitamin B12 (Not yet reviewe d by provider) Interpretation: Performing Lab: Notes/Report: [facility] , Vitamin B12 007 799-0797 pg/mL Performed at: [address] [id number] Ball Worker: Harry Rodriguez PhD, Phone: [phone] Performing Lab: see note - [facility] VITAMIN D 25 [place] (Not yet rev iewed by provider) Interpretation: Performing Lab: Notes/Report: [facility] , Vitamin D 38.6 <20 ng/mL Vit D deficient 20-<30 ng/mL Vit D insufficient 30-100 ng/mL Vit D sufficient >100 ng/mL Potential Toxicity Performing Lab: see note ML - [facility] LB IRON AND TIBC (Not yet revie wed by provider) Interpretation: Performing Lab: Notes/Report: [facility] , Iron 48.0 50.0-170.0 ug/dL Total Iron Binding Capacity 348.0 250.0-450.0 ug/dL Percent Iron Saturation 13.8 Performing Lab: see note ML - [facility] LB FERRITIN (Not yet reviewed b y provider) Interpretation: Performing Lab: Notes/Report: [facility] , Ferritin 197.0 8.0-252.0 ng/mL Performing Lab: see note ML - [facility] LB CBC AUTO DIFF (Not yet revie wed by provider) Interpretation: Performing Lab: Notes/Report: [facility] , White Blood Count 9.0 4.0-11.0 [...] see note ML - [facility] LB FERRITIN (Not yet reviewed b y provider) Interpretation: Performing Lab:[facility] ([facility]), [address] [place] [address] AVE[address] [place] [address]. [address] PH:[phone] Notes/Report: FERRITIN 195 11-307 ng/mL [address]FORMED [address] [address] IRON PROFILE ([facility]) (No t yet reviewed by provider) Interpretation: Performing Lab:[facility] ([facility]), [address] [place] [address] AVE[address] [address] PH:[phone] Notes/Report: IRON 53 50-170 ug/dL IRON BINDING 374 250-425 ug/dL IRON SATURATION 14 15-50 % SATURATION PERFOR MED AT [address] [place] [address] CBC AND AUTO DIFF * (Not yet reviewed by provider) Interpretation: Performing Lab:[facility] ([facility]), [address] [place] [address] AVE[address] [address] PH:[phone] Notes/Report: WBC COUNT 8.4 4.0-11.0 X10E9/L RBC [...] BASOPHIL 0.0 0.0-0.2 X10E9/L PERFORM ED AT [address] [address] BMP w/GFR (Not yet reviewed by provider) Interpretation: Performing Lab:[facility] ([facility]), [address] [place] [address], [address] [address] PH:[phone] Notes/Report: SODIUM 138 134-146 mmol/L POTASSIUM 4.2 3.5-5.0 mmol/L CHLORIDE 106 98-109 mmol/L CARBON DIOXIDE 22 22-32 mmol/L ANION GAP 10 5-15 mmol/L BLOOD UREA NITROGEN 18 5-23 mg/dL CREATININE 0.70 0.40-1.00 mg/dL METHOD TRACE ABLE TO [facility] STANDARD GLUCOSE 89 65-99 mg/dL CALCIUM 8.9 8.5-10.5 mg/dL eGFR (CKD-EPI) NON-RACE DEPENDENT >90 >59 ml/min/1.73sq.m Reported eGFR is based on the CKD-EPI 2020 equation that does not use a race coefficient. PERFORMED AT [address] [address] Vitamin B12 (Not yet reviewe d by provider) Interpretation: Performing Lab: Notes/Report: [facility] , Vitamin B12 370.0 193.0-986.0 pg/mL Performing Lab: see note ML - [facility] LB VITAMIN D 25 [place] (Not yet rev iewed by provider) Interpretation: Performing Lab: Notes/Report: [facility] , Vitamin D 38.6 <20 ng/mL Vit D deficient 20-<30 ng/mL Vit D insufficient 30-100 ng/mL Vit D sufficient >100 ng/mL Potential Toxicity Performing Lab: see note ML - [facility] LB FREE T4 (Not yet reviewed by provider) Interpretation: Performing Lab: Notes/Report: [facility] , Free T4 0.81 0.76-1.46 ng/dL Performing Lab: see note ML - [facility] LB FERRITIN (Not yet reviewed b y provider) Interpretation: Performing Lab: Notes/Report: [facility] , Ferritin 469.0 8.0-252.0 ng/mL Performing Lab: see note ML - [facility] LB Reason For Referral Reason see attached rx Diagnosis 1 Ingrowing nail (L60. 0) Referral Organization [facility] ([facility]) Referring Provider First Name Veena Referring Provider Last Name Kedar Referring Provider Speciality Podiatry Referred Provider Specialty Pharmacist General Notes Austin Paz 06/2023 11:02:08 AM >Patient wants to get oral medication. Referred to her PCP. Referral Priority Routine Reason Referral to [employer] 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 [place] [address] 09/29/2023 [facility] [address] [place] [address] 06/14/2024 Carmen Fisher [facility]) [address] [place], [place] [address] [address] 11/26/2023 Veena Thacker Ingrowing nail L60.0 and Post-traumatic osteoarthritis, left ankle and foot M19.172 [facility] [address] [place], [place] [address] [address] 04/06/2024 Joy Yung Post-traumatic osteoarthritis, left ankle and foot M19.172 ; Ingrowing nail L60.0 ; Tinea unguium B35.1 and Pain in left ankle and joints of left foot M25.572 [facility] Oncology [address] [place] [address] 03/29/2024 [facility] [address] [place] [address] 02/22/2024 [facility] [address] [place] [address] 12/22/2023 Carmen Fisher [facility] Oncology [address] [place] [address] 02/11/2024 Carmen Fisher Assessments Encounter Date Diagnosis [...] patient satisfaction. [facility] to [facility] [...] AUTO DIFF 07/21/2023 CBC AUTO DIFF 08/18/2023 CBC AUTO DIFF 09/15/2024 FERRITIN 06/13/2024 FERRITIN 07/21/2023 FERRITIN 09/29/2023 FERRITIN 02/01/2024 FERRITIN 03/24/2024 FOLATE 08/18/2023 FOLATE 09/15/2024 FREE T4 08/18/2023 FREE T4 09/29/2023 IRON AND TIBC 09/29/2023 IRON AND TIBC 07/21/2023 IRON AND TIBC 03/24/2024 IRON AND TIBC 02/01/2024 IRON AND TIBC 06/13/2024 IRON AND TIBC 09/15/2024 LAB TESTING 09/15/2024 PROF 14(COMP METB) 06/13/2024 PROF CHEM 8 (BAS METB) 03/24/2024 PROF CHEM 8 (BAS METB) 09/15/2024 TSH 08/18/2023 TSH 09/29/2023 VITAMIN D 25 [place] 09/29/2023 VITAMIN D 25 [place] 03/24/2024 VITAMIN D 25 [place] 02/01/2024 VITAMIN D 25 [place] 06/13/2024 VITAMIN D 25 [place] 09/15/2024 XR foot LT min 3V 04/08/2024 XR ankle LT min 3V 04/08/2024 Vitamin B12 09/29/2023 Vitamin B12 08/18/2023 TSH W/ REFLEX FT4 03/24/2024 Vitamin B12 02/01/2024 Vitamin B12 03/24/2024 Vitamin B12 09/15/2024 Vitamin B12 06/13/2024 Next Appt Details Provider Name:Carmen Fisher , 09/20/2024 11:30:00 AM, [address] [place], [address], Insurance Providers Payer Name Payer Address Payer Phone Subscriber Number Group Number Insured Name Patient Relationship to Insured Coverage Start Date Coverage End Date [employer] [place] [employer] [address] [facility] [place] [phone] [id number] Pee Wilson Self - patient is the [...]
--- OUTSIDE RECORDS SUMMARY | 2024-09-16 12:50 | XMS_ITS | Encounter Summary ---
Author Organization [employer] [facility] tem Address [id number] [address] [place] [address] Care Team Providers Care Ebd Special Education Teacher Name Role Phone Services, [facility] Primary Care Provider Reason for Referral * Consultation (Routine) - Closed Specialty Diagnoses / Procedures Referred By Karla cuadra Referred To Contact Endocrinology, Diabetes & Metabolism Diagnoses 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, without long-term current use of insulin ([facility]) Zelalem Pathak MD Phone: tel: fax: Cleo Zambrano MD [address] [facility], [address] [address] Phone: tel: fax: Referral ID Status Reason Start Date Expiration Date V isits Requested Visits Authorized [id number] Closed Specialty Services Required 06/14/2020 06/14/2021 1 1 Encounter Details Date Type Department Care Team (Late st Contact Info) Description 06/14/2020 Orders Only [facility] [address] [place] [id number] Zelalem Pathak MD [address] Provider retired 05/31/24 [place], [place] [id number] 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, without long-term current use of insulin ([facility]) (Primary Dx) Social History Tobacco Use [...] complication, without long-term current use of insulin ([facility]) 1 Occurrences starting 06/14/2020 until 12/14/2020 documented as of this encounter Visit Diagnoses Diagnosis 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, without long-term current use of insulin ([facility])- Primary documented in this encounter Additional Health Concerns Assessment Noted Time PHQ-9 Depression Total Score: 0 05/03/19 21 3:00 PM EST A Body Mass Index follow-up plan has been documented for the patient 02/10/2020 2:00 PM EST documented as of this encounter Care Teams Ebd Special Education Teacher Relationship Specialty Start Date End Date Services, [facility] [address] [place], [place] PCP - General Family Medicine 10/05/23 documented as of this encounter
--- OUTSIDE RECORDS SUMMARY | 2024-09-16 12:50 | XMS_ITS | Encounter Summary ---
Author Organization [facility] tem Address [id number] [address] [place] [address] Care Team Providers Care Hog Buyer Name Role Phone Services, [facility] Primary Care Provider Encounter Details Date Type Department Care Team (Late st Contact Info) Description 04/08/2022 Telephone [facility] [address] [place] [phone] Patricia Clay RN Social History Tobacco Use [...] up with request for medical bra prescription. Outside [employer] spoke with Mohsen who states he is [...] documented as of this encounter Care Teams Hog Buyer Relationship Specialty Start Date End Date [facility], [address] [place], [place] PCP - General Family Medicine 10/05/23 documented as of this encounter
--- OUTSIDE RECORDS SUMMARY | 2024-09-16 12:50 | XMS_ITS | Clinical Summary ---
Author Organization [facility] Address [address] [place] [address] Care Team Providers Care Magazine Supervisor Name Role Phone Unavailable Primary Care Provider [...] mcg/actuation nasal sprayIndication s:Globus sensation Use 1 [place] in each nostril as needed. Active PYRIDOXINE [...]
--- OUTSIDE RECORDS SUMMARY | 2024-09-16 12:50 | XMS_ITS | Encounter Summary ---
Author Organization [facility] Sys tem Address [id number] [address] [place] [address] Care Team Providers Care Soft Tile Setter Name Role Phone Services, [facility] Primary Care Provider Encounter Details Date Type Department Care Team (Late st Contact Info) Description 02/17/2020 Orders Only [facility] [address] [place] [phone] Zelalem Pathak MD [address]. Provider retired 05/31/24 [place], [place] [id number] Social History Tobacco Use Types Packs/Day Years [...] documented as of this encounter Care Teams Soft Tile Setter Relationship Specialty Start Date End Date [facility], [facility] [address] [place], [place] PCP - General Family Medicine 10/05/23 documented as of this encounter
--- OUTSIDE RECORDS SUMMARY | 2024-09-16 12:50 | XMS_ITS | Patient Health Record ---
Author Organization [facility] es Address [address] [address] Care Team Providers Care Convenience Recycle Center Tech Name Role Phone Chinyere Calix Primary Care Provider [phone] Katharine [place] Unavailable [phone] Allergies Allergen (clinical drug ingredient) Drug/Non Drug Allergy documented on EMR Reaction Allergy Type Onset Date Status citalopram Celexa Unknown Drug Allergy Active Keflex Unknown Drug Allergy Active Results Component Value Reference Range Notes HCG,Urine Reviewed date:08/21/2024 11:22:54 AM Interpretation: Performing Lab:, [facility], [address] [place] [address] Notes/Report: HCG Qualitative,Urine Negative Glucose Poct Glucometers Reviewed date:08/21/2024 11:22:47 AM Interpretation: Performing Lab:, [facility], [address] [place] [address] Notes/Report: Glucose Poc Glucometers 85 Random Glucose Reference Range is dependent on time and content of last meal. Glucose of more than 200 mg/dL in a nonstressed, ambulatory subject supports the diagnosis of Diabetes Mellitus. 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 [address] [place] [address] 06/13/2024 Chinyere Calix Bipolar 1 disorder, mixed, moderate F31.62 ; ADHD (attention deficit hyperactivity disorder), combined type F90.2 and PTSD (post-traumatic stress disorder) F43.10 [facility] [address] [place] [address] 12/28/2023 Chinyere Calix Bipolar 1 disorder, mixed, moderate F31.62 ; ADHD (attention deficit hyperactivity disorder), combined type F90.2 and PTSD (post-traumatic stress disorder) F43.10 [facility] [address] [place] [address] 03/28/2024 Chinyere Calix Bipolar 1 disorder, mixed, moderate F31.62 ; ADHD (attention deficit hyperactivity disorder), combined type F90.2 and PTSD (post-traumatic stress disorder) F43.10 [facility] [address] [place] [address] 07/19/2024 Katharine [place] [facility] [address] [place] [address] 08/16/2024 Chinyere Calix Bipolar 1 disorder, mixed, moderate F31.62 [facility] [address] [place] [address] 08/16/2024 Chinyere Calix Bipolar 1 disorder, mixed, moderate F31.62 [facility] [address] [place] [address] 01/14/2024 Chinyere [place] [address] [place] [address] 02/10/2024 [place] [address] [place] [address] 03/07/2024 [facility] Tali [address] [place] [address] 03/30/2024 [facility] [address] [place] [address] 06/13/2024 [facility] [address] [place] [address] 06/22/2024 [place] [place] [place] [address] 11/28/2023 Chinyere Custer ADHD (attention deficit hyperactivity disorder), combined type [...] increasing protein as appropriate. Discussed referral to alligator shear operator if problem persists. . . Continue current [...] increasing protein as appropriate. Discussed referral to alligator shear operator if problem persists. . . Continue current [...] increasing protein as appropriate. Discussed referral to alligator shear operator if problem persists. . . Continue current [...] 1 disorder, mixed, moderate (ICD-10 - F31.62) 08/16/2024 Bipolar 1 disorder, mixed, moderate (ICD-10 - F31.62) 06/13/2024 ADHD (attention deficit hyperactivity disorder), combined [...] Provider Name:Chinyere Churchill Calix, 09/20/2024 03:45:00 PM, [address], [place], [address], Insurance Providers Payer Name Payer Address Payer Phone Subscriber Number Group Number Insured Name Patient Relationship to Insured Coverage Start Date Coverage End Date [employer] [place] Medicaid [address] CLAIMS DEPT [facility] [place] [address] [id number] [employer], PEE Self - patient is the insured 3 [facility] [address] [place] [address] [phone] [id number] GODFREY PERRY PEE Self - patient is the insured 3 [facility] 22. [address] [place] [address] [id number] GODFREY PERRY, PEE Self - patient is the insured 0 3 [facility] [employer]UCKEYE-ter med 22 [address] [place] [address] [id number] GODFREY PERRY, PEE Self - patient is the insured 1 3 [facility] MEDICAID [facility] after [employer]UCKEYE-ter med 22 [address] [place] [address] [id number] GODFREY PRERY, PEE Self - patient is the insured 1 3 Medical (General) History Medical History History ICD Code bipolar PTSD ADHD Surgical History Surgery Date(Month/Year) nasal surgery leg surgery back surgery ankle surgery Hospitalization History Reason Date(Month/Year) Rotator cuff surgery 05/15/22
--- OUTSIDE RECORDS SUMMARY | 2024-09-16 12:50 | XMS_ITS | Encounter Summary ---
Author Organization [facility] Address [address] [place] [address] Care Team Providers Care Field Service Representative Name Role Phone Loreto Mcneal Primary Care Provider Encounter Details Date Type Department Care Team (Late st Contact Info) Description 09/15/2024 Telephone [facility] [address] [place] [address] Peyton Bloom MA Social History Tobacco Use Types Packs/Day Years [...] as of this encounter Visit Diagnoses Diagnosis Primary hypertension Unspecified essential hypertension documented in this encounter Care Teams Field Service Representative Relationship Specialty Start Date End Date Loreto Mcneal [facility] [address] PCP - General 03/30/24 documented as of this encounter
--- OUTSIDE RECORDS SUMMARY | 2024-09-16 12:50 | XMS_ITS | Encounter Summary ---
Author Organization [facility] Sys tem Address [id number] [address] [place] [address] Care Team Providers Care Renal Nurse Name Role Phone Services, [facility] Primary Care Provider Encounter Details Date Type Department Care Team (Late st Contact Info) Description 06/02/2023 Orders Only [facility] [address] [place] [address] Deepika Cxo MD [address] [facility] [address] [place] [address] Social History Tobacco Use Types [...] documented as of this encounter Care Teams Renal Nurse Relationship Specialty Start Date End Date Services, [facility] [address] [facility] [place] [place] PCP - General Family Medicine 10/05/23 documented as of this encounter
--- OUTSIDE RECORDS SUMMARY | 2024-09-16 12:50 | XMS_ITS | Encounter Summary ---
Author Organization [facility] tem Address [id number] [address] [place] [address] Care Team Providers Care Maintenance Shop Laborer Name Role Phone Services, Pending [facility] To [facility] Primary Care Provider Reason for Visit * Reason Onset Date Comments denial 09/22/2018 Encounter Details Date Type Department Care Team (Late st Contact Info) Description 09/22/2018 Telephone [facility] [address] [place] [address] Gil Alba PA [address] [facility] 2nd Floor [place], [place] [id number] denial Social History Tobacco Use Types Packs/Day [...] documented as of this encounter Care Teams Maintenance Shop Laborer Relationship Specialty Start Date End Date Services, Pending [facility] [address] [place], [place] PCP - General Family Medicine 10/05/23 documented as of this encounter
--- OUTSIDE RECORDS SUMMARY | 2024-09-16 12:50 | XMS_ITS | Encounter Summary ---
[facility] Address [id number] [address] [place] [address] Care Team Providers Care Data Entry Specialist Name Role Phone Services, [facility] Primary Care Provider Encounter Details Date Type Department Care Team (Late st Contact Info) Description 06/30/2019 Telephone [facility] Family Medicine [address] [place] [address] Amy Cerna LPN Social History Tobacco Use [...] as of this encounter Care Teams Data Entry Specialist Relationship Specialty Start Date End Date Services, [facility] [address] [place], [place] PCP - General Family Medicine 10/05/23 documented as of this encounter
--- OUTSIDE RECORDS SUMMARY | 2024-09-16 12:50 | XMS_ITS | Encounter Summary ---
Author [id number] [address] [place] [address] Care Team Providers Care Printing Sales Representative Name Role Phone Services, [facility] Primary Care Provider Encounter Details Date Type Department Care Team (Late st Contact Info) Description 07/13/2018 Telephone [facility] Family Medicine [address] [place] [address] Amy Cerna LPN Social History Tobacco Use [...] documented as of this encounter Care Teams Printing Sales Representative Relationship Specialty Start Date End Date [facility], [facility] [address] [place], [place] PCP - General Family Medicine 10/05/23 documented as of this encounter
--- OUTSIDE RECORDS SUMMARY | 2024-09-16 12:50 | XMS_ITS | Encounter Summary ---
Author Organization [facility] Address [address] [facility] [place] [address] Care Team Providers Care Gas Station Supervisor Name Role Phone Zully, Key WEB OPERATIONS ADMINISTRATOR Unavailable Shawna Dudley DO Primary Care Provider [phone] Sasha Santos DO Unavailable [phone] Mendez Ortiz DO Unavailable Encounter Details Date Type Department Care Team (Late Contact Info) Description 06/01/2024 Abstract [facility] [address] [place] [address] Roel Garber, DO [address] [facility] [address] [place], [place] [phone] Social History Tobacco Use Types Packs/Day Years [...] Upcoming Encounters Date Type Department Care Team ([facility] Contact Info) Description 12/01/2024 11:00 AM EDT Office Visit [facility] [address] [place] [address] Cleo Zambrano MD [address] [place] [address] 05/31/2025 1:00 PM EDT Office Visit [facility] [address] [facility] [place] [address] Roel Garber, DO [address] [facility] [place] [address] 08/18/2025 2:00 PM EDT Office Visit [facility] [address] [place] [address] Mendez Ortiz DO [address] [place] [address] documented as of this encounter Visit Diagnoses Not on filedocumented in this encounter Care Teams Gas Station Supervisor Relationship Specialty Start Date End Date Shawna Dudley DO [address] [facility] [place] [address] PCP - General Family Medicine 04/14/22 Key Andrea NP [address] [place] [address] Referring Physician Family Medicine 08/13/23 Sasha Santos DO [address] [place] [address] Referring Physician Neurology 05/10/24 Mendez Ortiz DO [address] [place] [address] Otolaryngology 08/19/24 documented as of this encounter
--- OUTSIDE RECORDS SUMMARY | 2024-09-16 12:50 | XMS_ITS | Clinical Summary ---
Author Organization [facility] Address [address] [place] [address] Care Team Providers Care Filter Press Tender Name Role Phone Fredis Loreto Primary Care [...] mouth in the morning. 04/07/19 25 Active etonogestrel-elu ting contraceptive (Nexplanon) 68 mg contraceptive implant Inject [...] succinate XL (Toprol-XL) 25 mg 24 hr tabletIndication s:Primary hypertension Take 1 tablet (25 mg) by mouth in the morning. 30 tablet 11 09/16/19 25 026 Active metoprolol succinate XL (Toprol-XL) 25 mg 24 hr tabletIndication s:Primary hypertension Take 1 tablet (25 mg) by mouth in the morning. 30 tablet 2 06/21/19 025 Discontin ued(Reord er) Encounters Date Type Department Care Team Description 09/15/[address] [facility] Cardiology Clinic [address] [facility] [place] [address] Peyton Bloom MA 08/03/[address] [facility] [address] [facility] [place] [address] Kay Carrillo CNP Other chest pain (Primary Dx) 07/29/[address] [facility] [address] [facility] [place] [address] Peyton Bloom MA 07/26/[address] [facility] [address] [facility] [place] [address] Erendira Tom PA-C 07/08/[address] [facility] [address] [facility] [place] [address] Erendira Tom PA-C 06/20/2024 8:25 AM EDT - 06/20/2024 11:59 PM EDT Hospital Encounter [facility] [address] [place] [address] Other chest pain Discharge Disposition: Home or Self Care () 06/20/2024 8:00 AM EDT Office Visit [facility]iology [facility] [address] [place] [address] Erendira Tom PA-C Primary hypertension (Primary Dx); [...] (1 of 2) 2030 Adult Tetanus 09/03/2031 09/02/2021, 09/02/2021 Pneumococcal Vaccine: Pediatrics (0 to 5 [...] MUSE Atrial Rate 88 BPM GE MUSE WA Interval 132 ms GE MUSE QRS DURATION 82 ms GE MUSE QT Interval 386 ms GE MUSE QTC CALCULATION(BAZE TT) 467 ms GE MUSE P Paradise 53 degrees GE MUSE R-Par[place] 26 degrees GE MUSE T Wave Paradise 50 degrees GE MUSE 06/20/2024 8:37 AM [...] Tom PA-C ECG ORDERABLES Final Res ult GE BREE from Last 3 Months Insurance [facility] MED[facility] Care Teams Filter Press Tender Relationship Specialty Start Date End Date Loreto Mcneal [address] PCP - General 03/30/24
--- OUTSIDE RECORDS SUMMARY | 2024-09-16 12:50 | XMS_ITS | Encounter Summary ---
Author Organization [facility] [employer] s tem Address [id number] [address] [place] [address] Care Team Providers Care Family Member Caretaker Name Role Phone Services, [facility] Primary Care Provider Encounter Details Date Type Department Care Team (Late st Contact Info) Description 05/10/2020 Telephone [facility] Family Medicine [address] [place] [address] Kimberlyn Juarez CMA Social History Tobacco Use [...] documented as of this encounter Care Teams Family Member Caretaker Relationship Specialty Start Date End Date Services, [facility] [address] [place] PCP - General Family Medicine 10/05/23 documented as of this encounter
--- OUTSIDE RECORDS SUMMARY | 2024-09-16 12:50 | XMS_ITS | Encounter Summary ---
Author Organization [facility] [employer] Sys tem Address [id number] [address] [place] [address] Care Team Providers Care Forging Press Setter Up Name Role Phone Services, [facility] Primary Care Provider Reason for Visit * Reason Comments Med Refill Encounter Details Date Type Department Care Team (Late st Contact Info) Description 06/19/2020 Refill [facility] [address] [place] [phone] Zelalem Pathak MD [address] Provider retired 05/31/24 [place], [place] [phone] Social History Tobacco Use Types Packs/Day Years [...] documented as of this encounter Care Teams Forging Press Setter Up Relationship Specialty Start Date End Date [facility], [facility] [address] [place], [place] PCP - General Family Medicine 10/05/23 documented as of this encounter
--- OUTSIDE RECORDS SUMMARY | 2024-09-16 12:50 | XMS_ITS | Encounter Summary ---
Author [id number] [address] 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
--- OUTSIDE RECORDS SUMMARY | 2024-09-16 12:50 | XMS_ITS | Encounter Summary ---
Author Organization [facility] [employer] s tem Address [facility][id number] [address] [place] [address] Care Team Providers Care Exhaust Tender Name Role Phone Services, [facility] Primary Care Provider Encounter Details Date Type Department Care Team (Late st Contact Info) Description 05/10/2020 Telephone [facility] Family Medicine [address] [place] [address] Austin Yin CNA Social History Tobacco Use [...] documented as of this encounter Care Teams Exhaust Tender Relationship Specialty Start Date End Date Services, [facility] [address] [place], [place] PCP - General Family Medicine 10/05/23 documented as of this encounter
--- OUTSIDE RECORDS SUMMARY | 2024-09-16 12:50 | XMS_ITS | Encounter Summary ---
Author Organization [facility] tem Address [id number] [address] [place] [address] Care Team Providers Care Student Success Counselor Name Role Phone Services, [facility] Primary Care Provider Encounter Details Date Type Department Care Team (Late st Contact Info) Description 05/09/2022 Telephone [facility] [address] [place] [phone] Patricia Clay RN Social History Tobacco Use [...] have Coronavirus / COVID-19? No / Unsure 05/02/2022 12:10 PM EST documented as of this encounter Miscellaneous Notes * Telephone Encounter - Patricia Clay RN - 05/09/2022 3:57 PM EST Voicemail received from patient in regards to TENS unit. In the message patient stated that [facility] was canceling the order for the TENS unit as this office did not provide required information. Via message patient states that [facility] C Le[facility] will not accept the order that patient has. She was told it has to come directly from ordering provider. Patient left her phone number as well as a phone number for [employer] ( ). 1540 Call was placed to patient for clarification as there is no documentation in regards to a needfor additional information for TENS unit. Patient states per her insurance, [employer], she must use [employer] Per patient, she has made multiple calls to both this office and [employer] and nothing hasbeen done and now the order has been canceled. Patient is informed that this office has not received any requests from [facility] [employer] and that there is no documentation of [facility] contacting this office. Patient states she had definitely called this office multiple times and she states she provided Maria C Dupree with the correct phone and fax numbers for this office. Patient is again informed that this o ffice has not received any requests from [employer] in any form. She states that she didn't realize until the end of April that she had to go through [employer] She wanted her TENS prior to upcoming surgery on and now because you guys didn't do what you were suppose to do, I'm not goingto have it before my surgery'. Patient was again informed that [facility] has not contacted this office. Cable Splicer Helper offered to call Maria C Leia at the phone number provided on message. 1543 Call was placed to [facility] C Dup[facility]. At 1547 group underwriter spoke with Faye who was advised of reason for call. Faye confirms that order was canceled due to no response from ordering office and the maximum attempts had been made. She states the last fax was sent 05/01/2022. Faye is informed that no fax from this company was sent to this office. After a period of time Faye was able to access the closed request. She states she will reopen the order and refax the request for additional information. Faye was asked to verify the fax number. She read 2 different fax numbers one was a 567 prefix and neither was the fax for this office. Faye is informed of this information and was provided the correct fax number. Faye read back the phone number x2. She states that the fax should be received by this office within 24-48 hours. 1547- Call was placed to patient to update her with the above information. Patient is informed thatthis will be followed up with on Thursday. Patient again stated she had planned on having the TENS prior to her surgery. She was asked if she wanted group underwriter to continue efforts to rectify the matter. She states yes, I still need it but I wanted it before my surgery . Will await needed fax and will address with ordering provider. * Telephone Encounter - Kimberlyn Kilgore PA-C - 05/09/2022 3:57 PM EST noted * Telephone Encounter - Patricia Clay RN - 05/09/2022 3:57 PM EST Call placed to [facility] C Dup[facility] in regards to the TENS unit order. [facility] C [facility] was to sent a fax to this office indicating what information is needed in order for them to process the TENS order. The fax should have been received within 48 hours of call placed on . No fax has been received as of today. Cable Splicer Helper spoke with Valarie and explained this to her. She apologized and stated that since the order was reactivated, insurance verification was needed prior to them sending the fax to this office. Valarie states that insurance verification has been received. She states she will note insurance verification and submit order and ji urgent. She states fax should be received soon. Cable Splicer Helper asked Valarie to verify fax number. Valarie listed the two fax numbers that she had on file. Neither of the numbers was the correct fax number. Valarie was given the correct fax number to this office ([phone]). She apologized and read back correct fax number. * Telephone Encounter - Patricia Clay RN - 05/09/2022 3:57 PM EST [facility] TENS order form was completed and faxed to [facility] this morning. * Telephone Encounter - Patricia Clay RN - 05/09/2022 3:57 PM EST Call received from Yaneli ([facility]). Yaneli was calling to see if request for detailed written orderfor TENS unit has been received. Yaneli is informed that the last forms that this office received were signed in May, faxed in May and again 06/30/2022. Yaneli states requests for additional information was faxed to this office August 15, 2022. She is informed that this office has not received any requests other that what was mentioned above. Yaneli reads off the phone number that the forms had beenfaxed to. She is informed the fax number is not to this office. Yaneli is provided with the correct fax for this office [phone]. * Telephone Encounter - Patricia Clay RN - 05/09/2022 3:57 PM EST Patient called today and stated [facility] is requiring a prior auth for TENS. Patient is informed that order was received, signed and faxed back to [facility] last week. She is informed that if additional information is needed she may need to reach to [facility] as they have repeatedly sent forms to theincorrect fax number despite them being provided with the correct fax number [phone]. Patient expresses her frustration with [facility] and states she will give them a call. documented in this encounter Plan of Treatment Not on file documented as of this encounter Visit Diagnoses Not on filedocumented in this encounter Additional Health Concerns Assessment Noted Time PHQ-9 Depression Total Score: 0 05/03/19 21 3:00 PM EST A Body Mass Index follow-up plan has been documented for the patient 02/10/2020 2:00 PM EST documented as of this encounter Care Teams Student Success Counselor Relationship Specialty Start Date End Date Services, [facility] [address] [place], [place] PCP - General Family Medicine 10/05/23 documented as of this encounter
--- NOTE | 2024-09-16 12:51 | CT_ITS ---
The [address] [address] Patient Name: PEE GUTIERREZ MRN: [id number] date: 1980 Sex: F Assigned Patient Location: CT Current Patient Location: Accession/Order Number: [id number] Exam Date: 09/17/2024 00:12 Report Date: 09/17/2024 00:17 At the request of: JOY ARAMBULA DPM Procedure: CT ankle LT wo con CT ankle LT wo con 09/16/2024 1:05 PM SIGNS AND SYMPTOMS: Acute left ankle pain greatest medially TECHNIQUE: Multidetector CT axial slices of the left ankle without IV contrast. Multiplanar reformats were performed and viewed on a separate workstation and reviewed to further define anatomy and possible pathology. CT was performed with one or more of the following dose reduction techniques: Automated exposure control, adjustment of the mA and/or kV according to patient size, or use of iterative reconstruction technique. COMPARISON: 09/16/2024 FINDINGS: There are well-corticated bony fragment separate from the anterior aspect of the lateral malleolus suggesting remote avulsive injuries. A similar finding is noted along the posterior aspect of the medial malleolus. The medial and lateral malleolus are grossly intact without evidence of acute displaced fracture. The ankle mortise is preserved. There is diffuse osteopenia. 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 There is no evidence of acute displaced fracture. No dislocation. No significant soft tissue swelling. CT/CT ankle LT wo con IMPRESSION: No acute displaced fracture. Findings suggest remote avulsive injuries along the medial and lateral malleolus. There is diffuse osteopenia. Impression dictated by: Diego Hoskins M.D. 09/17/2024 12:17 AM Dictation Location: [place] [address] Electronically authenticated by: [id number] Y Date: 09/17/2024 00:17
--- OUTSIDE RECORDS SUMMARY | 2024-09-16 12:51 | XMS_ITS | Encounter Summary ---
Author Organization [facility] Address [address] [place] [address] Care Team Providers Care Director Credit Risk Name Role Phone Key Andrea SUPERVISOR CAR INSTALLATIONS Unavailable Shawna Dudley DO Primary Care Provider [phone] Sasha Santos DO Unavailable [phone] Mendez Ortiz DO Unavailable [phone] Reason for Visit * Reason Comments Med Refill Encounter Details Date Type Department Care Team (Late st Contact Info) Description 09/15/2024 Refill [facility] [address] [place] [phone] Cleo Zambrano MD [address] [place] [address] 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, unspecified whether intermission coordinator insulin use (HCC) Social History Tobacco Use Types Packs/Day Years [...] encounter Miscellaneous Notes * Telephone Encounter - Pilar Valdez LPN - 09/16/2024 9:44 AM EDT MEDICATION SENT TO PHARMACY. documented in this encounter Plan of Treatment Upcoming Encounters Date Type Department Care Team ([facility] st Contact Info) Description 12/01/2024 11:00 AM EDT Office Visit [facility] [address] [place] [address] Cleo Zambrano MD [address], [address] [place] [address] 05/31/2025 1:00 PM EDT Office Visit [facility] [address] [place] [address] Roel Garber, DO [address] [place], [place] [id number] 08/18/2025 2:00 PM EDT Office Visit [facility] [address] [place] [place] [address] Mendez Ortiz DO [address] [place] [address] documented as of this encounter Visit Diagnoses Diagnosis 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, unspecified whether senior living insulin use (HCC) documented in this encounter Care Teams Director Credit Risk Relationship Specialty Start Date End Date Shawna Dudley DO [address] [place] [address] PCP - General Family Medicine 04/14/22 Key Andrea NP [address] [place] [address] Referring Physician Family Medicine 08/13/23 Sasha Santos DO [address] [place] [address] Referring Physician Neurology 05/10/24 Mendez Ortiz DO [address] [place] [address] Otolaryngology 08/19/24 documented as of this encounter
--- OUTSIDE RECORDS SUMMARY | 2024-09-16 12:51 | XMS_ITS | Encounter Summary ---
Author [facility] Address [id number] [address] [place] [address] Care Team Providers Care Tilesetter Name Role Phone Services, [facility] Primary Care Provider Reason for Visit * Reason Onset Date Comments Med Refill 06/19/2017 Encounter Details Date Type Department Care Team (Late st Contact Info) Description 06/19/2017 [facility] [address] [place] [phone] Amy Cerna LPN Social History Tobacco Use [...] documented as of this encounter Care Teams Tilesetter Relationship Specialty Start Date End Date Services, [facility] [address] [place], [place] PCP - General Family Medicine 10/05/23 documented as of this encounter
--- OUTSIDE RECORDS SUMMARY | 2024-09-16 12:51 | XMS_ITS | Encounter Summary ---
Author Organization [facility] Address [address] [place] [address] Care Team Providers Care Behavioral Health Director Name Role Phone Key Andrea RIGGING LOFT REPAIRER Unavailable Shawna Dudley DO Primary Care Provider [phone] Sasha Santos DO Unavailable [phone] Mendez Ortiz DO Unavailable [phone] Encounter Details Date Type Department Care Team (Late Contact Info) Description 08/10/2024 External Result Encounter [facility] External Department Unsolicited Mendez Ortiz DO [address] [place] [address] Social History Tobacco Use Types Packs/Day Years [...] Upcoming Encounters Date Type Department Care Team ([facility] Contact Info) Description 12/01/2024 11:00 AM EDT Office Visit [facility] [address] [place] [address] Cleo Zambrano MD [address], [address] [place] [address] 05/31/2025 1:00 PM EDT Office Visit [facility] [address] [place] [phone] Roel Garber, DO [address] [facility] [place] [address] 08/18/2025 2:00 PM EDT Office Visit [facility] [place] [address] [place] [address] Mendez Ortiz DO [address] [facility] [place] [address] documented as of this encounter Procedures Procedure [...] Jr., D.O. 08/10/2024 10:43 AM Dictation Location: [place] [address] Transcribed By: PWS 08/10/24 1043 Dictated By: Alin Ornelas Jr, DO 08/10/24 1042 Signed By: <Electronically signed by Alin Ornelas Jr, DO in OV> 08/10/24 1043 Narrative 08/10/2024 10:45 AM EDT [facility] Main [place] [address] [place] [address] XRay Report Signed Patient: Karma Candelaria MR#: [id number] : 1980 Acct:[id number] Age/Sex: 43 / F ADM Date: 08/10/24 Loc: [place] Room: Type: [facility] Attending Dr: Mendez Ortiz DO Copies to: Mendez Ortiz DO Ordering Provider: Mendez Ortiz DO Date of Service: 08/10/24 XR/XR chest 1V portable: In PACU: Possible Pneumothorax SINGLE VIEW CHEST CLINICAL HISTORY: Inspire placement COMPARISON: None FINDINGS: Expiratory device is noted. No pneumothorax is seen. Low lung volumes with bibasilar atelectasis. Evidence of old granulomatous disease. XR/XR chest 1V portable Procedure Note lAin Ornelas Jr., - 09/08/2024 [facility] Main [place] [address] [place] [address] XRay Report Signed Patient: Karma Candelaria AMR#: [id number] : 1980Acct:[id number] Age/Sex: 43 / FADM Date: 08/10/24 Loc: [place] Room:Type: [facility] Attending Dr: Mendez Ortiz DO Copies to: [...] Jr., D.O. 08/10/2024 10:43 AM Dictation Location: [place] [address] Transcribed By: [facility] 08/10/24 1043 Dictated By: Alin Ornelas Jr, DO 08/10/24 1042 Signed By: <Electronically signed by Alin Ornelas Jr, DO inOV> 08/10/24 1043 us Mendez Ortiz DO IMG XR PROCEDURES Edited Re sult - Final documented in this encounter Visit Diagnoses Not on filedocumented in this encounter Care Teams Behavioral Health Director Relationship Specialty Start Date End Date Vicky DudleytyDO [address] [place] [address] PCP - General Family Medicine 04/14/22 Key Andrea NP [address] [place] [address] Referring Physician Family Medicine 08/13/23 Sasha Santos DO [address] [place] [address] Referring Physician Neurology 05/10/24 Mendez Ortiz DO [address] [place] [address] Otolaryngology 08/19/24 documented as of this encounter
--- OUTSIDE RECORDS SUMMARY | 2024-09-16 12:51 | XMS_ITS | Encounter Summary ---
Author Organization [facility] tem Address [id number] [address] [place] [address] Care Team Providers Care Barn Hand Name Role Phone Services, [facility] Primary Care Provider Reason for Visit * Reason Comments Med Refill Encounter Details Date Type Department Care Team (Late st Contact Info) Description 08/11/2017 Refill [facility] [address] [place] [address] [place] [phone] Francia High, [facility] [address] [place] [address] Social History Tobacco Use Types Packs/Day Years [...] documented as of this encounter Care Teams Barn Hand Relationship Specialty Start Date End Date Services, [facility] [address] [place], [place] PCP - General Family Medicine 10/05/23 documented as of this encounter
--- OUTSIDE RECORDS SUMMARY | 2024-09-16 12:51 | XMS_ITS | Encounter Summary ---
Author Organization [employer] [facility] tem Address [id number] [address] [place] [address] Care Team Providers Care Belt Tender Name Role Phone Services, [facility] Primary Care Provider Encounter Details Date Type Department Care Team (Late st Contact Info) Description 10/30/2017 Telephone [facility] [address] [place] [address] Amy Cerna LPN Social History [...] as of this encounter Care Teams Belt Tender Relationship Specialty Start Date End Date Services, [facility] [address] [place], [place] PCP - General Family Medicine 10/05/23 documented as of this encounter
--- OUTSIDE RECORDS SUMMARY | 2024-09-16 12:51 | XMS_ITS | Encounter Summary ---
Author Organization [facility] [employer] [facility] tem Address [id number] [address] [place] [address] Care Team Providers Care Paving Block Cutter Name Role [facility] Primary Care Provider Reason for Visit * Reason Onset Date Comments Med Refill 11/10/2017 Encounter Details Date Type Department Care Team (Late st Contact Info) Description 11/10/2017 [facility] [address] [place] [phone] Amy Cerna LPN Social History Tobacco Use [...] documented as of this encounter Care Teams Paving Block Cutter Relationship Specialty Start Date End Date Services, [facility] [address] [place], [place] PCP - General Family Medicine 10/05/23 documented as of this encounter
--- OUTSIDE RECORDS SUMMARY | 2024-09-16 12:51 | XMS_ITS | Encounter Summary ---
Author Organization [facility] tem Address [id number] [address] [place] [address] Care Team Providers Care Ic Designer Gate Arrays Name Role Phone Services, [facility] Primary Care Provider Reason for Visit * Reason Comments Med Refill Encounter Details Date Type Department Care Team (Late st Contact Info) Description 06/11/2017 Refill [facility] [address] [place] [address] [place] [address] Francia High, VOYAGE MANAGEMENT SYSTEM OPERATOR-BLOCK HANDLER [address] [place], [place] [id number] Social History Tobacco Use Types Packs/Day Years [...] documented as of this encounter Care Teams Ic Designer Gate Arrays Relationship Specialty Start Date End Date Services, [place] [id number] [place], [place] PCP - General Family Medicine 10/05/23 documented as of this encounter
--- OUTSIDE RECORDS SUMMARY | 2024-09-16 12:51 | XMS_ITS | Clinical Summary ---
Author Organization [facility] Address [address], [address] [place] [address] Care Team Providers Care Deployment Technician Name Role Phone Loreto Mcneal APRN, NP [...] EDT - 07/16/2024 1:52 PM EDT Emergency [facility] Emergency Department [address] [place] [address] Post-traumatic osteoarthritis of left ankle [...] Description 11/10/2024 11:30 AM EDT Office Visit [facility] [address] [place] [phone] Karen Cotter, VENDOR MANAGEMENT SPECIALIST - DIGITAL COMMUNICATIONS MANAGER [address] [place] [phone] 1 year [employer] Health Maintenance Due Date [...] Color, UA Yellow Yellow 07/16/2024 1:25 PM [facility] Turbidity UA Clear Clear 07/16/2024 1:25 PM [facility] Glucose, Ur 3+(A) NEGATIVE mg/dL 07/16/2024 1:25 PM [facility] Bilirubin, Urine NEGATIVE NEGATIVE 07/16/2024 1:25 PM [facility] Ketones, Urine NEGATIVE NEGATIVE mg/dL 07/16/2024 1:25 PM [facility] Specific [place], UA 1.025(H) 1.010 - 1.020 07/16/2024 1:25 PM [facility] Urine Hgb NEGATIVE NEGATIVE 07/16/2024 1:25 PM [facility] pH, Urine 6.0 5.0 - 9.0 07/16/2024 1:25 PM [facility] Protein, UA NEGATIVE NEGATIVE mg/dL 07/16/2024 1:25 PM [facility] Urobilinogen, Urine Normal 0.0 - 1.0 EU/dL 07/16/2024 1:25 PM [facility] Nitrite, Urine NEGATIVE NEGATIVE 07/16/2024 1:25 PM [facility] Leukocyte Esterase, Urine NEGATIVE NEGATIVE 07/16/2024 1:25 PM [facility] WBC, UA 0 TO 2 0 - 5 /HPF 07/16/2024 1:25 PM [facility] RBC, UA 0 TO 2 0 - 2 /HPF 07/16/2024 1:25 PM EDT [facility] Epithelial Cells, UA 0 TO 2 0 - 25 /HPF 07/16/2024 1:25 PM EDT [facility] Bacteria, UA TRACE(A) None 07/16/2024 1:25 PM EDT [facility] Mucus, UA TRACE(A) None 07/16/2024 1:25 PM EDT [facility] Amorphous, UA TRACE(A) None 07/16/2024 1:25 PM EDT [facility] Urine URINE SPECIMEN / Unknown 07/16/2024 1:25 PM EDT 07/16/2024 1:29 PM EDT Prieto Daniel PA-C URINE ORDERABLES Final Result [facility] [address] [phone] * XR ANKLE LEFT (MIN 3 VIEWS) [...] 1. No acute abnormality. Prieto Daniel PA-C [facility] ORDERAB LES Final Result * [...] 1. No acute abnormality. Prieto Daniel PA-C [facility] ORDERAB LES Final Result * [...] Final Result from Last 3 Months Insurance [facility] Care Teams Deployment Technician Relationship Specialty Start Date End Date Loreto Mcneal APRN - NP [address] [place] [address] PCP - General 11/11/23
--- OUTSIDE RECORDS SUMMARY | 2024-09-16 12:51 | XMS_ITS | Encounter Summary ---
Author Organization [facility] Address [id number] [address] [place] [address] Care Team Providers Care Restaurant Busser Name Role Phone Services, [facility] Primary Care Provider Reason for Visit * Reason Comments Med Refill Encounter Details Date Type Department Care Team (Late st Contact Info) Description 01/23/2019 Refill [facility] [address] [place] [phone] Zelalem Pathak MD [address] Provider retired 05/31/24 [place], [place] [phone] Social History Tobacco Use Types Packs/Day Years [...] documented as of this encounter Care Teams Restaurant Busser Relationship Specialty Start Date End Date Services, [facility] [address] [place], [place] PCP - General Family Medicine 10/05/23 documented as of this encounter
--- OUTSIDE RECORDS SUMMARY | 2024-09-16 12:51 | XMS_ITS | Clinical Summary ---
Author Organization [facility] Address [address] [place] [address] Care Team Providers Care Clip Riveter Name Role Phone Key Andrea PROBATION WORKER Unavailable Shawna Dudley DO Primary Care Provider [phone] Sasha Santos DO Unavailable [phone] Mendez Ortiz DO Unavailable Allergies Active Allergy Reactions Criticality Noted Date [...] 50 mg by mouth Daily as needed 023 Active traZODone (Desyrel) 50 MG tablet Take 50-100 mg by mouth at bedtime Active rosuvastatin (Crestor) 10 MG tablet Take 10 mg by mouth Daily Active Probiotic Product (Align) capsule Take 1 capsule by mouth Daily 023 Active naproxen (Naprosyn) 500 MG tablet Take 500 mg by mouth in the morning and 500 mg in the evening. Take with meals. Active Multiple Vitamin (Tab-A-Karely) tablet Take 1 tablet by mouth Daily Active lurasidone (Latuda) 120 MG tablet Take 80 mg by mouth Daily Take with food. Active Vyvanse 70 MG capsule Take 70 mg by mouth Daily Active lamoTRIgine (LaMICtal) 200 MG tablet Take 200 mg by mouth Daily Active fluticasone (Flonase) 50 MCG/ACT nasal spray Administer 1 spray into each nostril 1 (one) time each day at the same time Active FLUoxetine (PROzac) 60 MG tablet Take 60 mg by mouth Daily Active fexofenadine (Ros) 180 MG tablet Take 180 mg by mouth Daily Active etonogestrel-elu ting (Nexplanon) 68 mg contraceptive implant Inject 68 mg under the skin 1 (one) time Active docusate sodium (Colace) 100 MG capsule Take 300 mg by mouth in the morning and 300 mg in the evening and 300 mg before bedtime. Active cholecalciferol (Vitamin D-3) 50 MCG (2000 UT) capsule Take 2,000 Units by mouth Daily Active ascorbic acid (Vitamin C) 500 MG tablet Take 500 mg by mouth in the morning and 500 mg before bedtime. Active albuterol HFA (Ventolin HFA) 90 mcg/act [...] needed in the evening for muscle spasms. Active diclofenac (Voltaren) 75 MG EC tablet Take 75 mg by mouth as needed in the morning and 75 mg as needed in the evening. Active mupirocin (Bactroban) 2 % ointmentIndicati ons:Chronic rhinitis apply to left nose TWICE DAILY for 2 (TWO) weeks NEEDED 15 g 2 025 Active gabapentin (Neurontin) 300 MG capsuleIndicatio ns:Paresthesias 1 po 2-3 times a day. 90 capsule 2 025 Active metoprolol succinate XL (Toprol-XL) 25 MG 24 hr tablet 025 Active ciclopirox (Loprox) 0.77 % creamIndications :Rash and other nonspecific skin eruption APPLY TO THE AFFECTED AREA(S) TWICE DAILY 90 g 025 Active B Complex Vitamins (vitamin B complex) tablet Take 1 tablet by mouth Daily 025 Active pantoprazole (ProtoNix) 40 MG EC tablet Take 40 mg by mouth in the morning. Take before meals. Do not crush, chew, or split. Active ferrous sulfate 325 (65 Fe) MG tablet Take 325 mg by mouth in the morning. Take with meals. Active lansoprazole (Prevacid) [address] capsule Take 30 mg by mouth Daily 025 Active famotidine (Pepcid) 40 MG tablet Take 40 mg by mouth Daily 025 Active SUMAtriptan (Imitrex) 100 MG tabletIndication s:Migraine with aura and without status migrainosus, not intractable TAKE 1 TABLET BY MOUTH DAILY NEEDED FOR MIGRAINE 9 tablet 1 025 Active empagliflozin (Jardiance) 25 MGIndications:Ty pe 2 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, unspecified whether penitentiary insulin use (HCC) Take 1 tablet (25 mg) by mouth Daily 30 tablet 2 025 2024 Active pioglitazone (Actos) 30 MG tabletIndication s: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, unspecified whether penitentiary insulin use (HCC) Take 1 tablet (30 mg) by mouth Daily 30 tablet 3 025 Active Tirzepatide (Mounjaro) 5 MG/0.5ML solution auto-injectorInd ications: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, unspecified whether penitentiary insulin use (HCC) Inject 5 mg under the skin every 7 (seven) days 6 mL 1 025 2024 Active Mounjaro 2.5 MG/0.5ML solution auto-injectorInd ications: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, unspecified whether penitentiary insulin use (HCC) INJECT 2.5 MG SUBCUTANEOUSLY (UNDER THE SKIN) EVERY 7 DAYS 2 mL 3 025 Active Tirzepatide (Mounjaro) 2.5 MG/0.5ML solution auto-injectorInd ications: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, 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 (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) Inject 2.5 mg under the skin every 7 (seven) days 2 mL 3 025 2024 Discontinued Active Problems Problem Noted Date Diagnosed Date [...] (03/10/2023): Added automatically from request for surgery [id number] Lumbosacral spondylosis without myelopathy 07/22 Overview (03/10/2023): Added automatically from request for surgery [id number] PTSD (post-traumatic stress disorder) 06/16/2018 Type 2 [...] Other chronic pain 08/17/2024 Postoperative pain 08/17/2024 5 Reactive hypoglycemia 08/17/20242024 Attention deficit hyperactivity disorder [...] Date Type Department Care Team Description 09/15/2024 Refill [facility] [address] [place] [address] Cleo Zambrano MD 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, 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 (HCC) 09/01/2024 10:45 AM EDT Office Visit [facility] [place] [address] [place] [address] Mendez Ortiz DO Obstructive sleep apnea (Primary Dx) 09/01/2024 Bamboo flowsheet [facility] [place] [address] [place] [address] Mendez Ortiz DO 09/01/2024 Travel 08/19/2024 1:15 PM EDT Office Visit [facility] [place] [facility] [address] [place] [address] Mendez Ortiz DO Obstructive sleep apnea (Primary Dx); Intolerance of continuous positive airway pressure (CPAP) ventilation 08/19/2024 Bamboo flowsheet [facility] [address] [place] [address] Mendez Ortiz, 08/19/2024 Travel 08/10/2024 8:00 AM EDT Procedure Visit [facility] Mendez Ortiz, DO Obstructive sleep apnea (Primary Dx); Intolerance of continuous positive airway pressure (CPAP) ventilation 08/10/2024 External Result Encounter [facility] External Department Unsolicited Mendez Ortiz, DO 08/10/2024 External Result Encounter [facility] External Department Unsolicited Mendez Ortiz, DO 08/10/2024 External Result Encounter [facility] External Department Unsolicited Mendez Ortiz, DO 08/04/2024 10:30 AM EDT Office Visit [facility] [address] [place] [phone] Cleo Zambrano MD 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, unspecified whether penitentiary insulin use (HCC) (Primary Dx); Vitamin D deficiency; Weight gain; Encounter for dietary consultation; Hyperlipemia, mixed ; Class 3 severe obesity due to excess calories without serious comorbidity with body mass index (BMI) of 40.0 to 44.9 in adult ([facility]) 08/04/2024 Bamboo flowsheet [facility] [address] [place] [address] Cleo Zambrano MD 08/02/2024 8:30 AM EDT Office Visit [facility] [address] [facility] [address] Roel Garber, Itching with irritation; Nexplanon removal 08/02/2024 Bamboo flowsheet [facility] [address] [facility] [address] Roel Garber DO 07/20/2024 Telephone [facility] [address] [place] [address] Cleo Zambrano MD Advice Only 06/30/2024 9:40 AM EDT Procedure Visit [facility] [address] [place] [address] Roel Garber, Nexplanon removal 06/30/20[address] [address] [place] [address] Bela Ribeiro LPN 06/27/2024 Abstract [facility] [address] [place] [address] Roel Garber, 06/17/2024 Refill [facility] [place] [address] [place] [address] Brittany Neville, JO ANN Migraine with [...] [facility] [address] [place] [address] Cleo Zambrano MD [address] [place] [address] 05/31/2025 1:00 PM EDT Office Visit [facility] [address] [place] [phone] Roel Garber DO [address] [place] [address] 08/18/2025 2:00 PM EDT Office Visit [facility] [place] [address] [place] [phone] Mendez Ortiz DO [address] [place] [address] Health Maintenance Due Date Last Done Comments [...] without complication, unspecified whether penitentiary insulin use (HCC) POCT GLYCOSYLATED HEMOGLOBIN (HGB A1C) Routine 08/04/2024 10:54 AM EDT 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, 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 08/10/2024 10:43 AM Dictation Location: [place] [address] Transcribed By: CALVIN 08/10/24 1043 Dictated By: Alin Ornelas Jr, DO 08/10/24 1042 Signed By: <Electronically signed by Alin Ornelas Jr, DO in [place]> 08/10/24 1043 Narrative 08/10/2024 10:45 AM EDT [address] [address] XRay Report Signed Patient: Pee Whitehead MR#: [id number] : 1980 Acct:[id number] Age/Sex: 43 / F ADM Date: 08/10/24 Loc: [place] Room: Type: [facility] Attending Dr: Mendez Ortiz DO Copies to: [...] Note Alin Ornelas Jr., DO - 09/08/[address] [address] XRay Report Signed Patient: Pee Whitehead AMR#: [id number] : 1980Acct:[id number] Age/Sex: 43 / FADM Date: 08/10/24 Loc: [place] Room:Type: [facility] Attending Dr: Mendez Ortiz DO Copies to: [...] ATELECTASIS. Impression dictated by: Alin Ornelas Jr., DRosyORosy 08/10/2024 10:43 AM Dictation Location: [facility] Transcribed By: [facility] 08/10/24 1043 Dictated By: Alin Ornelas Jr, DO 08/10/24 1042 Signed By: <Electronically signed by Alin Ornelas Jr, DO inOV> 08/10/24 1043 Mendez Ortiz DO IMG XR PROCEDURES Edited Re sult - Final * GLUCOSE POCT GLUCOMETERS (08/10/2024 10:30 AM EDT) Only the most recent of2 resultswithin the time period is included. GLUCOSE POC GLUCOMETERS 136 mg/dL 08/10/2024 10:36 AM EDT [facility] Comment: Random Glucose Reference Range is dependent on time and content of last meal. Glucose of more than 200 mg/dL in a nonstressed, ambulatory subject supports the diagnosis of Diabetes Mellitus. Blood (Blood) 08/10/2024 10: 30 AM EDT 08/10/2024 10:36 AM EDT Mendez Ortiz DO LAB BLOOD ORDERABLES Final Result Performing Organization Address City/State/[facility] Co de Phone Number [facility] [address] [place] [address], * POCT glycosylated hemoglobin (Hb A1C) docked device (08/04/2024 10:54 AM EDT) Hemoglobin A1C 5.8 Blood Venous blood specimen / Unknown 08/04/2024 10:54 AM EDT Cleo Zambrano MD POINT OF CARE TEST ENTER/EDIT ORDERABLES Final Result * (ABNORMAL) POCT glucose manually resulted (08/04/2024 10:54 AM EDT) Glucose Blood, POC 131 mg/dL Blood Capillary blood specimen / Unknown 08/04/2024 10:54 AM EDT us Cleo Zambrano MD POINT OF CARE TEST [...] PM EDT Narrative 05/27/2024 4:49 [place] [address] Mammography Report Signed Patient: PEE WHITEHEAD MR#: [id number] : 1980 Acct:[id number] Age/Sex: 43 / F ADM Date: 05/27/24 Loc: MAMMO Attending Dr: Roel Garber D.O. Ordering Physician: Roel Garber D.O. Results: Date of Service: 05/27/24 Follow Up: Procedure(s): MM tomosynthesis screening BI Accession Number(s): [id number] cc: Roel Garber D.O.; Loreto Mcneal NP Patient Name: PEE WHITEHEAD MR#: [id number] : 1980 Exam Date: 05/27/2024 Ordering Doctor: [...] Treatments None Family Cancers None LOCATION: [facility] BREAST COMPOSITION: There are scattered areas of [...] Signed By: 05/27/24 1649 DD/ 1648 TD/TT: Inbound Sales Representative: Procedure Note Radiology, Radiologist, MD - 05/27/2024 [place] [address] Mammography Report Signed Patient: PEE WHITEHEAD AMR#: [id number] : 1980Acct:[id number] Age/Sex: 43 / FADM Date: 05/27/24 Loc: MAMMO Attending Dr: Roel Garber D.O. Ordering Physician: Roel Garber D.O.Results: Date of Service: 05/27/24Follow Up: Procedure(s): MM tomosynthesis screening BI Accession Number(s): [id number] cc: Roel Garber D.O.; Loreto Mcneal NP Patient Name: PEE WHITEHEAD MR#: [id number] : 1980 Exam Date: 05/27/2024 Ordering Doctor: DR Roel Garber . RADIOLOGY REPORT PROCEDURE: MM TOMOSYNTHESIS SCREENING BI COMPARISON: MM DIAGNOSTIC MAMMO UNILAT RT, 03/25/2023. MG MAMM TWOWMY5D STELLA CAD, 03/16/2023. MM TOMOSYNTHESIS SCREENING BI, 11/07/2021. MM TOMOSYNTHESIS DIAGNOSTIC BI, 11/06/2020. INDICATIONS: Screening Calculator Name NCI Breast Cancer Risk Assessment Tool 5 Year Breast Cancer Risk Not Reported. Lifetime Breast Cancer Risk Not Reported. Personal Breast Cancer No Personal Ovarian Cancer No Treatments None Family Cancers None LOCATION: [facility] BREAST COMPOSITION: There are scattered areas of [...] 16:48 Dictated By: Mio Serra D.O. Signed By:05/27/24 1649 DD/ TD/TT: Inbound Sales Representative: us Roel Garber DO [facility] Final Result * Pap Smear (05/25/2023 12:00 AM EDT) Swab Cervical swab / Unknown us Roel Garber DO LAB CYTOLOGY ORDERABLES Final Re sult EXTERNAL LAB from Last 3 Months or Most Recently Relevant to Health Maintenance Insurance [employer] Care Teams Clip Riveter Relationship Specialty Start Date End Date Shawna Dudley DO [address] [place] [address] PCP - General Family Medicine 04/14/22 Key Andrea NP [address] [place] [address] Referring Physician Family Medicine 08/13/23 Sasha Santos DO [address] [place] [address] Referring Physician Neurology 05/10/24 Mendez Ortiz DO [address] [place] [address] Otolaryngology 08/19/24
--- OUTSIDE RECORDS SUMMARY | 2024-09-16 12:51 | XMS_ITS | Encounter Summary ---
Author Organization [facility] Address [address] [place] [address] Care Team Providers Care Wicker Worker Name Role Phone Zully, Key SENIOR PAINTER Unavailable Shawna Dudley DO Primary Care Provider [phone] Sasha Santos DO Unavailable [phone] Mendez Ortiz DO Unavailable [phone] Encounter Details Date Type Department Care Team (Late Contact Info) Description 06/27/2024 Abstract [facility] [address] [place] [address] Roel Garber, DO [address] [facility] [address] [place], [place] [phone] Social History Tobacco Use Types Packs/Day Years [...] Upcoming Encounters Date Type Department Care Team ([facility] Contact Info) Description 12/01/2024 11:00 AM EDT Office Visit [facility] [address] [place] [address] Cleo Zambrano MD [address] [place] [address] 05/31/2025 1:00 PM EDT Office Visit [facility] [address] [facility] [place] [address] Roel Garber, DO [address] [facility] [place] [address] 08/18/2025 2:00 PM EDT Office Visit [facility] [address] [place] [address] Mendez Ortiz DO [address] [place] [address] documented as of this encounter Visit Diagnoses Not on filedocumented in this encounter Care Teams Wicker Worker Relationship Specialty Start Date End Date Shawna Dudley DO [address] [place] [address] PCP - General Family Medicine 04/14/22 Key Andrea NP [address] [place] [address] Referring Physician Family Medicine 08/13/23 Sasha Santos DO [address] [place] [address] Referring Physician Neurology 05/10/24 Mendez Ortiz DO [address] [place] [address] Otolaryngology 08/19/24 documented as of this encounter
--- NOTE | 2024-09-16 12:54 | XR_ITS ---
The [place] [id number] Patient Name: PEE GUTIERREZ MRN: [id number] date: 1980 Sex: F Assigned Patient Location: CT Current Patient Location: CT Accession/Order Number: [id number] Exam Date: 09/16/2024 16:09 Report Date: 09/16/2024 16:11 At the request of: JOY ARAMBULA DPPrecious Procedure: XR ankle LT min 3V Left ankle, 3 views CLINICAL HISTORY: left ankle sprain COMPARISON: 08/08/2024 FINDINGS: Moderate degenerative changes tibiotalar joint. Cortical thickening involving the distal fibular diaphysis likely related to remote traumatic injury. Talar dome intact. No acute fracture dislocation identified. XR/XR ankle LT min 3V IMPRESSION: Degenerative changes. Negative acute osseous abnormality. Impression dictated by: Tye Martin M.D. 09/16/2024 4:11 PM Dictation Location: [place] [address] Electronically authenticated by: [id number] Y Date: 09/16/2024 16:11
== END 2024-09-16 12:48 | disposition home or self-care (01) ==
LOC: CT 12:47
PROVIDERS: PCP Nurse Practitioner Family; Visit Provider Podiatrist Foot & Ankle Surgery
DX: S93.402A Sprain of unspecified ligament of left ankle, initial encounter (principal); M85.872 Other specified disorders of bone density and structure, left ankle and foot
CPT/HCPCS: 73610; 73700

== ENCOUNTER 2024-09-27 14:45 | Outpatient (RCR) | payer OTHER, SELFPAY ==
--- OUTSIDE RECORDS SUMMARY | 2024-06-15 04:30 | XMS_ITS ---
Author Organization [facility] Address [address] [place] [address] Care Team Providers Care Scientific Aide Name Role Phone Chinyere Calix Primary Care Provider [phone] REASON FOR VISIT 3 month f/u Encounters Encounter Location Date Provider Diagnosis [facility] [address] [place] [address] 06/15/2024 Chinyere Calix Plan Of Treatment Next Appt Details Provider Name:Chinyere Kerline Yogi, 01/02/2025 04:30:00 PM, [address], [place], [address], Provider Name:Chinyere Calix, 03/27/2025 03:30:00 PM, [address], [place], [address], Progress Notes * PEE WHITEHEADDOB:[birth year] (44 yo F)Acc No.[id number]:06/15/2024 Behavioral Health Patient: Miryam PEE CROFT Appointment Provider: Precious Calix :1980 A ge:43 Y S ex:Female Date:06/15/2024 Address: [address] [place], [place] Subjective: * Chief Complaints: * 1 . 3 month f/u. * Medical History: Objective: * Vitals: Assessment: Plan: * Treatment: * Images: * Electronic signature of FAWN Acosta, TURNTABLE OPERATOR on 09/28/2024 at 08:35 AM EDT Sign off status: Pending * Appointment Provider: Precious Calix Date: 0 06/15/2024 Generated for Travis shoemaker/Catherine/Sonal on: 0 09/28/2024 08:35 AM EDT
--- OUTSIDE RECORDS SUMMARY | 2024-08-25 05:30 | XMS_ITS ---
Author Organization [facility] vices Address [address] [place] [phone] Care Team Providers Care Curriculum Coordinator Name Role Phone Loreto Mcneal Primary Care Provider Monique Nuñez Unavailable [phone] Deepika Banks Unavailable [phone] REASON FOR VISIT Recall (A) 43 Social History Sex Assigned At : Social History Observation Description Sex Assigned At Female Encounters Encounter Location Date Provider Diagnosis [facility] [address] [place], [place] [phone] 08/25/2024 Deepika Banks Plan Of Treatment Next Appt Details Provider Name:Loreto ludwig, 02/27/2025 08:45:00 AM, [address] [place] [address], [phone], Provider Name:Fara Sampson , 03/16/2025 10:45:00 AM, [address] [place] [address], [phone], Progress Notes * Karma SR ADOB: (44 yo F)Acc No.[id number]:08/25/2024 Patient: Miryam Karma KOWALSKI Provider: Ana Banks DDS :1980 A ge:43 Y S ex:Female Date:08/25/2024 Address:[address] [place], [place]-[address] Pcp:Loreto Mcneal Subjective: * Chief Complaints: * 1 . Recall (A) 43. * Medical History: Objective: * Vitals: Assessment: Plan: * Treatment: * Billing Information: * Visit Code: * Procedure Codes: * Electronic signature of Brenna Banks DDS on 09/28/2024 at 08:35 AM EDT Sign off status: Pending * Provider: Ana Banks DDS Date: 0 08/25/2024 Generated for Travis Hernandez/Sonal on: 09/28/2024 08:35 AM EDT
--- OUTSIDE RECORDS SUMMARY | 2024-09-13 07:30 | XMS_ITS ---
Author Organization The [facility] [place] Address [address] [place] [address] Care Team Providers Care Merchandise Pickup/Receiving Associate Name Role Phone Villa CHERRY, Rory Primary Care Provider Unavailab Carmen Cuellar Unavailable [phone] REASON FOR VISIT MD Encounters Encounter Location Date Provider Diagnosis [facility] [address] [place] [address] 09/13/2024 Carmen Fisher Plan Of Treatment Next Appt Details Provider Name:Carmen Fisher , 12/27/2024 01:15:00 PM, [address] [place], [address], Progress Notes * Karma WHITEHEADDOB:[birth year] (44 yo F)Acc No.[id number]:09/13/2024 UNLOCKED PROGRESS NOTE Progress Notes Patient: Karma MUNOZ Provider: Kerline Fisher M.D. :1980 A ge:43 Y S ex:Female Date:09/13/2024 Address:[address] [place] [address] Pcp:Rory Driver NP Subjective: * Chief Complaints: * 1 . MD. * Medical History: Objective: * Vitals: Assessment: Plan: * Treatment: * * Electronic signature of Jonny Fisher MD, [id number] on 09/28/2024 at 08:36 AM EDT Sign off status: Pending Visit Status: C ANC (Cancelled) * Provider: Kerline Fisher M.D. Date: 0 09/13/2024 Generated for Travis shoemaker/Catherine/Sonal on: 0 09/28/2024 08:36 AM EDT
--- OUTSIDE RECORDS SUMMARY | 2024-09-19 06:15 | XMS_ITS ---
Author Organization [facility] Servic es Address [address] [place] [address] Care Team Providers Care Mapping Pilot Name Role Phone Calix Chinyere Primary Care Provider Encounters Encounter Location Date Provider Diagnosis [facility] [address] [place] [address] 09/19/2024 Chinyere Calix Plan Of Treatment Next Appt Details Provider Name:Chinyere Calix, 01/02/2025 04:30:00 PM, [address], [place], [address], Provider Name:Chinyere Calix, 03/27/2025 03:30:00 PM, [address], [place], [address], Progress Notes * PEE WHITEHEADDOB:[birth year] (44 yo F)Acc No.[id number]:09/19/2024 Behavioral Health Patient: Miryam PEE CROFT Appointment Provider: Precious Calix :1980 A ge:43 Y S ex:Female Date:09/19/2024 Address: [address] [place], [place] Subjective: * Chief Complaints: * * Medical History: Objective: * Vitals: Assessment: Plan: * Treatment: Care Plan: * Problems: * Images: * Electronic signature of FAWN Acosta FNP on 09/28/2024 at 08:36 AM EDT Sign off status: Pending * Appointment Provider: Precious Calix Date: 09/19/2024 Generated for Travis Hernandez/Sonal on: 09/28/2024 08:36 AM EDT
--- OUTSIDE RECORDS SUMMARY | 2024-09-20 07:30 | XMS_ITS ---
Author Organization [facility] in [place] Address [address] [place] [address] Care Team Providers Care Gravel Roofer Name Role Phone Villa CHERRY, Rory Primary Care Provider Unavailab Carmen Cuellar Unavailable [phone] REASON FOR VISIT MD Encounters Encounter Location Date Provider Diagnosis [facility] [address] [place] [address] 09/20/2024 Carmen Fisher Plan Of Treatment Next Appt Details Provider Name:Carmen Fisher , 12/27/2024 01:15:00 PM, [address] [place], [address], Progress Notes * Karma WHITEHEADDOB:[birth year] (44 yo F)Acc No.[id number]:09/20/2024 UNLOCKED PROGRESS NOTE Progress Notes Patient: Karma MUNOZ Provider: Kerline Fisher M.D. :1980 A ge:43 Y S ex:Female Date:09/20/2024 Address:[address] [place] [id number] Pcp:Rory Driver NP Subjective: * Chief Complaints: * 1 . MD. * Medical History: Objective: * Vitals: Assessment: Plan: * Treatment: * * Electronic signature of Jonny Fisher MD, [id number] on 09/28/2024 at 08:33 AM EDT Sign off status: Pending Visit Status: C ANC (Cancelled) * Provider: Kerline Fisher M.D. Date: 0 09/20/2024 Generated for Travis shoemaker/Catherine/Sonal on: 0 09/28/2024 08:33 AM EDT
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
--- OUTSIDE RECORDS SUMMARY | 2024-09-20 13:00 | XMS_ITS | Encounter Summary ---
Author Organization [facility] Address [address] [place] [address] Care Team Providers Care Pipe Bowl Paint Trimmer Name Role Phone Zully Key CAR WIPER Unavailable Shawna Dudley DO Primary Care Provider [phone] Sasha Santos DO Unavailable [phone] Mendez Ortiz DO Unavailable Reason for Visit * Reason Comments Post-op Still having trouble with Inspire Encounter Details Date Type Department Care Team (Late st Contact Info) Description 09/20/2024 1:00 PM EDT Office Visit [facility] [address] [place] [address] Mendez Ortiz, DO [address] [facility] [place] [address] Obstructive sleep apnea (Primary Dx); Class 3 severe obesity with serious comorbidity and body mass index (BMI) of 40.0 to 44.9 in adult, unspecified obesity type (CMS-HCC); Breakdown (mechanical) of implanted electronic neurostimulator, generator, sequela Social History Tobacco Use Types Packs/Day Years [...] - - Weight 104 kg (230 lb) 09/20/2024 1:04 PM EDT Height 160 cm (5' 3 ) 09/20/2024 1:04 PM EDT Body Mass Index 40.74 09/20/2024 1:04 PM EDT documented in this encounter Progress Notes * Mendez Ahumada Angel, DO - 09/20/2024 1:00 PM EDT Subjective Patient ID: Karma Banegas is a 43 y.o. female who presents for Post-op (Still having troublewith Inspire) HPI This patient presents for recheck. She is status post placement of hypoglossal nerve stimulator. Having discomfort around the area of her chest incision. Motion of her arm causes some sharp discomfort. To move and become very uncomfortable No bleeding or wound difficulties. Presents for evaluation. Review of Systems Patient has noticed sharp pain in the area of her incision with motion of her arm or turning her torso. This is likely from motion of her pectoralis muscle. 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 Constipation 08/17/2024 Controlled type 2 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, without long-term current use of insulin (HCC) Disorder of sacrum 01/29/2023 Elevated liver function tests 08/17/2024 Fatty liver 08/17/2024 Gastritis 2017 GERD (gastroesophageal reflux disease) History of kidney stones 08/17/2024 Hyperlipemia Impulse control disorder 04/27/2024 Insertion of Nexplanon Iron deficiency anemia Irritable bowel syndrome with constipation 08/17/2024 Kidney stones Macromastia 10/08/2023 Mass of upper outer quadrant of right breast 06/02/2023 Mixed bipolar affective disorder, moderate (HCC) 04/27/2024 Musculoskeletal chest pain 08/17/2024 OCD (obsessive compulsive disorder) Open wound of toe without complication 03/10/2023 Other chronic pain 08/17/2024 Postoperative pain 08/17/2024 PTSD (post-traumatic stress disorder) Reactive hypoglycemia 08/17/2024 Recurrent epistaxis Seasonal allergies Symptomatic mammary hypertrophy 06/02/2023 Type 2 diabetes mellitus with hyperglycemia (HCC) Umbilical hernia 2016 Vitamin D deficiency Current [...] UT) capsule, Take 2,000 Units by mouth Daily, Disp: , Rfl: ciclopirox (Loprox) 0.77 % cream, APPLY TO THE AFFECTED AREA(S) TWICE DAILY, Disp: 90 g, Rfl: 0 cyclobenzaprine (Flexeril) 10 MG tablet, Take 10 mg by mouth as needed in the morning and 10 mg as needed at noon and 10 mg as needed in the evening for muscle spasms., Disp: , Rfl: diclofenac (Voltaren) 75 MG EC tablet, Take 75 mg by mouth as needed in the morning and 75 mg as needed in the evening., Disp: , Rfl: docusate sodium (Colace) 100 MG capsule, Take 300 mg by mouth in the morning and 300 mg in the evening and 300 mg before bedtime., Disp: , Rfl: DULoxetine (Cymbalta) [address] capsule, Take 60 mg by mouth in the morning and 60 mg before bedtime. Do not crush or chew., Disp: , Rfl: empagliflozin (Jardiance) 25 MG, Take 1 tablet (25 mg) by mouth Daily, Disp: 30 tablet, Rfl: 2 etonogestrel-eluting (Nexplanon) 68 mg contraceptive implant, Inject 68 mg under the skin 1 (one) time, Disp: , Rfl: famotidine (Pepcid) 40 MG tablet, Take 40 mg by mouth Daily, Disp: , Rfl: ferrous sulfate 325 (65 Fe) MG tablet, Take 325 mg by mouth in the morning. Take with meals., Disp:, Rfl: fexofenadine (Ros) 180 MG tablet, Take 180 mg by mouth Daily, Disp: , Rfl: FLUoxetine (PROzac) 60 MG [...] MG tablet, Take 200 mg by mouth Daily, Disp: , Rfl: lansoprazole (Prevacid) [address] capsule, Take 30 mg by mouth Daily, Disp: , Rfl: linaCLOtide (Linzess) 290 MCG capsule, Take 290 mcg by mouth in the morning. Take before meals. Do not crush or chew., Disp: , Rfl: lurasidone (Latuda) 120 MG tablet, Take 80 mg by mouth Daily Take with food., Disp: , Rfl: metoprolol succinate XL (Toprol-XL) 25 MG 24 hr tablet, , Disp: , Rfl: Mounjaro 2.5 MG/0.5ML solution auto-injector, INJECT 2.5 MG SUBCUTANEOUSLY (UNDER THE SKIN) EVERY 7DAYS, Disp: 2 mL, Rfl: 3 Multiple Vitamin (Tab-A-Karely) tablet, Take 1 tablet by mouth Daily, Disp: , Rfl: mupirocin (Bactroban) 2 % ointment, apply to left nose TWICE DAILY for 2 (TWO) weeks NEEDED, Disp: 15 g, Rfl: 2 naproxen (Naprosyn) 500 MG tablet, Take 500 mg by mouth in the morning and 500 mg in the evening. Take with meals., Disp: , Rfl: pantoprazole (ProtoNix) 40 MG EC tablet, Take 40 mg by mouth in the morning. Take before meals. Do not crush, chew, or split., Disp: , Rfl: pioglitazone (Actos) 30 MG tablet, Take 1 tablet (30 mg) by mouth Daily, Disp: 30 tablet, Rfl: 3 Probiotic Product (Align) capsule, Take 1 capsule by mouth Daily, Disp: , Rfl: rosuvastatin (Crestor) 10 MG tablet, Take 10 mg by mouth Daily, Disp: , Rfl: SUMAtriptan (Imitrex) 100 MG tablet, TAKE 1 TABLET BY MOUTH DAILY NEEDED FOR MIGRAINE, Disp: 9 tablet, Rfl: 1 Tirzepatide (Mounjaro) 5 MG/0.5ML solution auto-injector, Inject 5 mg under the skin every 7 (seven) days, Disp: 6 mL, Rfl: 1 traMADol (Ultram) 50 MG tablet, Take 50 mg by mouth Daily as needed, Disp: , Rfl: traZODone (Desyrel) 50 MG tablet, Take 50-100 mg by mouth at bedtime, Disp: , Rfl: Vyvanse 70 MG capsule, Take 70 mg by mouth Daily, Disp: , Rfl: Past Surgical History: Procedure Laterality Date ANKLE SURGERY BACK SURGERY CHOLECYSTECTOMY 08/2016 Laparoscopic EGD 10/2016 with Bx NASAL SINUS SURGERY OTHER SURGICAL HISTORY 05/31/2024 DISE OTHER SURGICAL HISTORY 08/10/2024 Inspire SHOULDER SURGERY Right TONSILLECTOMY UMBILICAL HERNIA REPAIR [...] Insecurity: No Food Insecurity (10/05/2023) Received from [facility] Hunger Screening Within the past [...] Not on file Intimate Partner Violence: Not At Risk (06/20/2024) Received from [facility] Humiliation, Afraid, Rape, and Kick questionnaire Fear of Current or Ex-Partner: No Emotionally Abused: No Physically Abused: No Sexually Abused: No Housing Stability: Not on file Objective ENT Physical Exam The area of the incision is healing quite nicely. Her surgical glue is falling off. Mild hyperemia around her sutures. She will start using Neosporin. Assessment/Plan Diagnoses and all orders for this visit: Obstructive sleep apnea Comments: patient will use white petroleum jelly over the areas of surgical intervention Class 3 severe obesity with serious comorbidity and body mass index (BMI) of 40.0 to 44.9 in adult,unspecified obesity type (CMS-HCC) Breakdown (mechanical) of implanted electronic neurostimulator, generator, sequela Comments: recommend revision of her implant to minimize any further discomfort and mobility of the implant. Recommend open revision of her implant to suture it back down to the level of the pectoralis muscleto prevent mobility. documented in this encounter Plan of Treatment Upcoming Encounters Date Type Department Care Team (Late st Contact Info) Description 09/29/2024 10:15 AM EDT Office Visit [facility] [address] [place] [phone] Mendez Ortiz DO [address] [place] [address] 12/01/2024 11:00 AM EDT Office Visit [facility] [address] [place] [place] [address] Cleo Zambrano MD [address] [place] [address] 05/31/2025 1:00 PM EDT [facility] [address] [place] [id number] Roel Garber DO [address] [facility] [place] [address] [place] [address] 08/18/2025 2:00 PM EDT Office Visit [facility] [address] [place] [id number] Mendez Ortiz DO [address] [place] [place] [address] documented as of this encounter Visit Diagnoses Diagnosis Obstructive sleep apnea- Primary Obstructive sleep apnea (adult) (pediatric) Class 3 severe obesity with serious comorbidity and body mass index (BMI) of 40.0 to 44.9 in adult, unspecified obesity type ([facility]) Breakdown (mechanical) of implanted electronic neurostimulator, generator, sequela documented in this encounter Care Teams Pipe Bowl Paint Trimmer Relationship Specialty Start Date End Date Shawna Dudley DO [address] [place] [address] PCP - General Family Medicine 04/14/22 Key Andrea NP [address] [place] [address] Referring Physician Family Medicine 08/13/23 Sasha Santos DO [address] [place] [address] Referring Physician Neurology 05/10/24 Mendez Ortiz DO [address] [place] [address] Otolaryngology 08/19/24 documented as of this encounter
--- OUTSIDE RECORDS SUMMARY | 2024-09-21 10:52 | XMS_ITS | Continuity of Care Document ---
Author Organization [facility] Address [address] [place] [address] Phone Care Team Providers Care Pelts Skinner Name Role Phone Mendez Ortiz DO Attending Provider [phone] Loreto Mcneal APRN Primary Care Provide r Jan Garg APRN Attending Provider [phone] Care Teams Patient Care Team Team Status: Active Member Role Status Dates Loreto Mcneal APRN INSECTICIDE SPRAYER-C Primary Care Provide r Active Visit Care Team Team Status: Inactive Member Role Status Dates Mendez Ortiz DO Attending Provider Active S tart: July 27, 2024 End: July 27, 2024 Loreto Mcneal APRN INSECTICIDE SPRAYER-C Primary Care Provide r Active Start: July 27, 2024 End: July 27, 2024 Visit Care Team Team Status: Inactive Member Role Status Dates Jan Garg APRN Attending Provider Active Start: August 08, 2024 End: August 08, 2024 Loreto Mcneal APRN INSECTICIDE SPRAYER-C Primary Care Provide r Active Start: August 08, 2024 End: August 08, 2024 Visit Care Team Team Status: Inactive Member Role Status Dates Mendez Ortiz DO Attending Provider Active S tart: August 10, 2024 End: August 10, 2024 CONCETTA Quintero Primary Care Provide r Active Start: August 10, 2024 End: August 10, 2024 Patient Care Team Team Status: Inactive Member Role Status Dates CONCETTA Quintero Primary Care Provide r Active Start: September 21, 2024 End: September 21, 2024 Mendez Ortiz DO Attending Provider Active S tart: September 21, 2024 End: September 21, 2024 Chief Complaint and Reason for Visit Chief Complaint Admit Date Sleep Apnea July 27, 2024 10:17 am Discuss Probiotic August 08, 2024 1:22p m Sleep Apnea August 10, 2024 6:11 am mechanical breakdown nerve stimulator Ju ly 2024 10:19am Reason for Visit Admit Date GERD (gastroesophageal reflux disease) J une 2024 1:22pm Irritable bowel syndrome with constipati on August 08, 2024 1:22pm Allergies, Adverse Reactions, Alerts Allergen Type Severity Reaction Last Updated Verified Status Comments cephalexin Allergy Unknown Swelling of Lip/Tongue/Throat , hives August 10, 2024 6:34am Yes Active citalopram Allergy Unknown Palpitations, anaphylaxis August 10, 2024 6:34am Yes Active metformin Allergy Unknown hypoglycemia August 10, 2024 6:34am Yes Active bottoms out to under 40 Social History Smoking Status Status Start Date End Date Date of Observa tion Never smoked tobacco (finding) September 21, 2024 11:29am Observation Status Observation Response Date of Response Legal Sex Female (finding) Sex Assigned At Female 1980 Family History Relationship Condition Age at Onset Recorded Date/T basia mother Diabetes mellitus Unknown Malignant neoplasm Unknown father Malignant neoplasm Unknown Heart disease Unknown Unknown Diabetes mellitus Unknown Problems Active Problems Medical Problem Onset Date Status Reactive hypoglycemia Unknown Active Fatty liver Unknown Active Elevated liver function tests Unknown Ac tive Diabetes mellitus with hyperglycemia Unknown Active Shifting sleep-work schedule, affecting sleep Un known Active Postoperative pain Unknown Active Postoperative pain Unknown Active BMI 36.0-36.9,adult Unknown Active BMI 37.0-37.9, adult Unknown Active Musculoskeletal chest pain Unknown Activ e History of kidney stones Unknown Active ADHD Unknown Active GERD (gastroesophageal reflux disease) Unknown Active Irritable bowel syndrome with constipation Unkno wn Active Constipation Unknown Active IBS (irritable bowel syndrome) Unknown A ctive Obesity Unknown Active Medications Medication Status Dose Units Route Directions Qty Days St art Date Stop Date End Date Instructions Adherence Bifidobacte rium Infantis (Align (B.Infantis )) 4 mg capsule Discont inued 4 MG PO Daily 2023 1:00am May 03, 2024 1:55p m Docusate Sodium 100 mg capsule Discont inued 100 MG PO Three times daily 2023 1:00am Augus t 2023 9:30a m Docusate Sodium 100 mg capsule Discont inued 100 MG PO Three times daily October 28, 2023 9:30am June 02, 2024 10:01 am Bifidobacte rium Infantis (Align (B.Infantis )) 4 mg capsule Discont inued 4 MG PO Daily May 03, 2024 1:54pm June 02, 2024 10:01 am Pantoprazol e 20 mg tablet,norris yed release (DR/EC) Discont inued 20 MG PO Twice daily 60 June 14, 2024 12:00a m July 27, 2024 11:36 am Gabapentin 300 mg capsule Active 900 MG PO Twice daily July 27, 2024 12:00a m Complies with drug therapy Cyclobenzap rine 10 mg tablet Active 10 MG PO Twice daily July 27, 2024 12:00a m 1 tab in morning and 2 tab at night Complies with drug therapy Tirzepatide (Mounjaro) 2.5 mg/0.5 mL pen injector Active 2.5 MG SUBCUT Once a week July 27, 2024 12:00a m Complies with drug therapy Diclofenac Sodium (Arthritis Pain (Diclofenac )) 1 % gel Active 2 GM TOPICA L Twice daily July 27, 2024 12:00a m Complies with drug therapy Diclofenac Sodium 75 mg tablet,norris yed release (DR/EC) Active 75 MG PO Twice daily July 27, 2024 12:00a m Complies with drug therapy Bifidobacte rium Longum (Align (B.Longum)) 10 million cell capsule Discont inued 94301 000 CELL PO Every morning July 27, 2024 12:00a m August 08, 2024 1:58p m Cholecalcif eddie (Vitamin D3) (Vitamin D3) 125 mcg (5,000 unit) tablet Active 125 MCG PO Every morning July 27, 2024 12:00a m Complies with drug therapy Ferrous Sulfate (Slow Release Iron) 140 mg (45 mg iron) tablet extended release Active 140 MG PO Daily July 27, 2024 12:00a m Complies with drug therapy Fluconazole 150 mg tablet Active 150 MG PO Once as needed for yeast infection July 27, 2024 12:00a m Complies with drug therapy Lidocaine 5 % adhesive patch,medic ated Active 1 PATCH TOPICA L Daily as needed for pain July 27, 2024 12:00a m Complies with drug therapy Metoprolol Succinate 25 mg tablet extended release 24 hr Active 25 MG PO Every morning July 27, 2024 12:00a m Complies with drug therapy Vitamin B Complex (Vitamins B Complex) tablet Active 1 TAB PO Every morning July 27, 2024 12:00a m Complies with drug therapy Albuterol 90 mcg/actuati on aerosol Active 90 MCG INHALA TION Every 4 hours as needed for wheezing July 27, 2024 12:00a m Complies with drug therapy Fluticasone Propionate 50 mcg/actuati on spray,suspe nsion Active 2 SPRAY INTRAN RENÉ Daily as needed for allergy symptoms July 27, 2024 12:00a m administer into each nostril Complies with drug therapy Ciclopirox 0.77 % cream Active 1 APPLIC TOPICA L Daily as needed for yeasty rash July 27, 2024 12:00a m Complies with drug therapy Mupirocin 2 % ointment Active 1 APPLIC TOPICA L Daily as needed for rash July 27, 2024 12:00a m Complies with drug therapy prasterone (DHEA) Active 1 TAB PO Every morning July 27, 2024 12:00a m Complies with drug therapy Testosteron e 50 mg/5 gram (1 %) gel Active 50 MG TRANSD ERML Daily July 27, 2024 12:00a m Complies with drug therapy Pantoprazol e 20 mg tablet,norris yed release (DR/EC) Active 20 MG PO Every morning July 27, 2024 12:00a m Complies with drug therapy Sulfamethox azole-Trime thoprim (Bactrim Ds) 800-160 mg tablet Discont inued 1 TAB PO Twice daily 12 09August 10, 2024 12:00a m September 21, 2024 11:19 am Hydrocodone -Acetaminop hen 5-325 mg tablet Active 1 TAB PO Every 6 hours as needed for pain 18 09August 10, 2024 Complies with drug therapy Hydrocodone -Acetaminop hen 5-325 mg tablet Active 1 TAB PO Every 6 hours as needed for pain 12 09September 21, 2024 Unknown Sulfamethox azole-Trime thoprim (Bactrim Ds) 800-160 mg tablet Active 1 TAB PO Twice daily 19 12September 21, 2024 12:00a m Unknown Oxycodone-A cetaminophe n (Percocet) 5-325 mg tablet Active 1 TAB PO Every 6 hours as needed for pain 12 09September 21, 2024 Unknown Tramadol 50 mg tablet Active 50 MG PO Daily as needed for pain May 20, 2023 12:00a m Complies with drug therapy Pioglitazon e 30 mg tablet Active 30 MG PO Daily at bedtime May 20, 2023 12:00a m Complies with drug therapy Gabapentin 100 mg capsule Discont inued 100 MG PO Twice daily May 20, 2023 12:00a m May 21, 2023 10:34 am Empaglifloz in (Jardiance) 25 mg tablet Active 25 MG PO Every morning May 20, 2023 12:00a m Complies with drug therapy Lamotrigine 200 mg tablet Active 200 MG PO Every morning May 20, 2023 12:00a m Complies with drug therapy Lurasidone 80 mg tablet Discont inued 80 MG PO Daily May 20, 2023 12:00a m Augus t 2023 9:30a m Rizatriptan (Maxalt) 10 mg tablet Active 10 MG PO . NEEDED as needed for migraine headache May 20, 2023 12:00a m Complies with drug therapy Multivitami n With Folic Acid (Daily-Karely (With Folic Acid)) 400 mcg tablet Active 1 TAB PO Every morning May 20, 2023 12:00a m Complies with drug therapy Etonogestre l (Nexplanon) 68 mg implant Discont inued 68 MG SUBDER MAL As Directed May 20, 2023 12:00a m July 27, 2024 11:11 am Famotidine 40 mg tablet Discont inued 40 MG PO Daily May 20, 2023 12:00a m June 02, 2024 10:01 am Fluoxetine 40 mg capsule Discont inued 40 MG PO Daily May 20, 2023 12:00a m Augus t 2023 9:28a m Rosuvastati n 10 mg tablet Active 10 MG PO Daily at bedtime May 20, 2023 12:00a m Complies with drug therapy Sumatriptan Succinate 100 mg tablet Active 100 MG PO Twice daily as needed for migraine headache May 20, 2023 12:00a m Complies with drug therapy Tizanidine 4 mg tablet Discont inued 4 MG PO Daily at bedtime May 20, 2023 12:00a m May 21, 2023 10:34 am Trazodone 50 mg tablet Discont inued 50 MG PO Daily at bedtime as needed May 20, 2023 12:00a m May 21, 2023 10:34 am Dulaglutide (Trulicity) 3 mg/0.5 mL pen injector Discont inued MG SUBCUT May 20, 2023 12:00a m May 21, 2023 10:20 am Ascorbic Acid (Vitamin C) (Vitamin C) 500 mg tablet Discont inued 500 MG PO Daily May 20, 2023 12:00a m May 21, 2023 10:34 am Lisdexamfet amine 70 mg capsule Active 70 MG PO Every morning May 20, 2023 12:00a m Complies with drug therapy Ascorbic Acid (Vitamin C) (Vitamin C) 500 mg tablet Active 500 MG PO Twice daily May 21, 2023 10:20a m Complies with drug therapy Gabapentin 100 mg capsule Discont inued 300 MG PO Twice daily May 21, 2023 10:21a m July 27, 2024 11:13 am Tizanidine 4 mg tablet Discont inued 8 MG PO Daily at bedtime May 21, 2023 10:24a m July 27, 2024 11:21 am Trazodone 50 mg tablet Active 50 MG PO Daily at bedtime May 21, 2023 10:25a m Complies with drug therapy Liraglutide (Victoza 2-Ramon) 0.6 mg/0.1 mL (18 mg/3 mL) pen injector Discont inued MG SUBCUT May 21, 2023 12:00a m June 02, 2024 9:36a m Meloxicam 15 mg tablet Discont inued 30 MG PO Daily May 21, 2023 12:00a m July 27, 2024 11:19 am Cholecalcif eddie (Vitamin D3) 50 mcg (2,000 unit) capsule Discont inued 2000 UNIT PO Daily May 21, 2023 12:00a m July 27, 2024 11:26 am Fexofenadin e 180 mg tablet Active 180 MG PO Daily at bedtime May 21, 2023 12:00a m Complies with drug therapy Duloxetine 30 mg capsule,del ayed release(DR/ EC) Discont inued 30 MG PO Daily May 21, 2023 12:00a m Augus t 2023 9:27a m Plecanatide (Trulance) 3 mg tablet Discont inued 3 MG PO Daily May 21, 2023 12:00a m May 21, 2023 11:36 am Lansoprazol e 30 mg capsule,del ayed release(DR/ EC) Discont inued 30 MG PO Daily 2024 1:00am June 02, 2024 10:01 am Tirzepatide (Mounjaro) 15 mg/0.5 mL pen injector Discont inued 15 MG SUBCUT every week June 02, 2024 12:00a m July 27, 2024 11:25 am Linaclotide (Linzess) 290 mcg capsule Discont inued 290 MCG PO Every morning June 02, 2024 9:58am August 08, 2024 1:58p m Famotidine 40 mg tablet Discont inued 40 MG PO Daily June 02, 2024 9:59am July 27, 2024 11:11 am Lansoprazol e 30 mg capsule,del ayed release(DR/ EC) Discont inued 30 MG PO Daily June 02, 2024 10:00a m June 14, 2024 3:23p m Docusate Sodium 100 mg capsule Discont inued 100 MG PO Three times daily 90 June 02, 2024 10:01a m August 08, 2024 1:58p m Bifidobacte rium Infantis (Align (B.Infantis )) 4 mg capsule Discont inued 4 MG PO Daily June 02, 2024 10:01a m July 27, 2024 11:25 am Linaclotide (Linzess) 290 mcg capsule Discont inued 290 MCG PO Every morning May 21, 2023 12:00a m June 02, 2024 10:01 am Duloxetine 60 mg capsule,del ayed release(DR/ EC) Active 60 MG PO Every morning October 15, 2023 12:00a m Complies with drug therapy Fluoxetine 60 mg tablet Active 60 MG PO Every morning October 15, 2023 12:00a m Complies with drug therapy Lurasidone 120 mg tablet Active 120 MG PO Every morning October 15, 2023 12:00a m Complies with drug therapy Docusate Sodium 100 mg capsule Active 100 MG PO Three times daily 90 August 08, 2024 1:54pm Complies with drug therapy Linaclotide (Linzess) 290 mcg capsule Active 290 MCG PO Every morning August 08, 2024 1:55pm Complies with drug therapy Pantoprazol e 20 mg tablet,norris yed release (DR/EC) Active 20 MG PO Twice daily 60 August 08, 2024 12:00a m Complies with drug therapy Famotidine 40 mg tablet Active 40 MG PO Twice daily 60 August 08, 2024 12:00a m Complies with drug therapy Bifidobacte rium Longum (Align (B.Longum)) 10 million cell capsule Active 71240 000 CELL PO Every morning August 08, 2024 1:57pm Complies with drug therapy Medical Equipment Device Date Implanted Device Details August 10, 2024 JULIAN: [id number] Issuing Agency: [facility] Device Id: [id number] Expiration Date: 2026-10-04 Serial Number: [id number] Implantable sleep apnoea treatment system, respiration-sensing August 10, 2024 JULIAN: [id number] Issuing Agency: [facility] Device Id: [id number] Expiration Date: 2026-12-14 Serial Number: [id number] August 10, 2024 JULIAN: [id number] Issuing Agency: [facility] Device Id: [id number] Expiration Date: 2027-01-12 Serial Number: [id number] Procedures Procedure Date Performed Status XR chest 1V portable August 10, 2024 10:09am com pleted OR Inspire Hypoglossal Nerve Stim Imp (Not Applicable) August 10, 2024 8:00am completed OR Inspire Hypoglossal Nerve Stim Imp (Not Applicable) September 21, 2024 12:00pm completed Relevant Diagnostic Tests and/or Laboratory Data Laboratory Results Test Collection Date/Time Result Date/Time Result Interpretation Reference Range Result Comment Performing Site Correcte d White Blood Count September 21, 2024 11:00am September 21, 2024 11:15am 8.3 10*3/uL 3.8-11.6 [facility] [id number] [address] [facility] [address] Uncorrec comfort WBC Count September 21, 2024 11:00am September 21, 2024 11:15am 8.3 10*3/uL 3.8-11.6 [facility] [id number] [address] [facility] [address] Red Blood Count September 21, 2024 11:00am September 21, 2024 11:15am 5.08 10*6/uL Above high normal 3.60-5.00 [facility] [id number] [address] [facility] [address] Hemoglob in September 21, 2024 11:00am September 21, 2024 11:15am 14.2 g/dL 11.8-15.4 [facility] [id number] [address] [facility] [address] Hematocr it September 21, 2024 11:00am September 21, 2024 11:15am 42.1 % 34.0-46.4 [facility] [id number] [address] [facility] [address] Mean Corpuscu lar Volume September 21, 2024 11:00am September 21, 2024 11:15am 83.0 fL 80-100 [facility] [id number] [address] [facility] [address] Mean Corpuscu lar Hemoglob in September 21, 2024 11:00am September 21, 2024 11:15am 28.0 pg 24.7-34.3 [facility] [id number] [address] [facility] [address] Mean Corpuscu lar Hemoglob in Concent September 21, 2024 11:00am September 21, 2024 11:15am 33.7 g/dL 32.0-35.0 [facility] [id number] [address] [facility] [address] Red Cell Distribu tion Width September 21, 2024 11:00am September 21, 2024 11:15am 14.9 % 11.9-15.3 [facility] [id number] [address] [facility] [address] Platelet Count September 21, 2024 11:00am September 21, 2024 11:15am 299 10*3/uL 150-450 [facility] [id number] [address] [facility] [address] Mean Platelet Volume September 21, 2024 11:00am September 21, 2024 11:15am 8.8 fL 6.3-10.7 [facility] [id number] [address] [facility] [address] Neutroph ils (%) (Auto) September 21, 2024 11:00am September 21, 2024 11:15am 60.9 % . [facility] [id number] [address] [facility] [address] Lymphocy jarrod (%) (Auto) September 21, 2024 11:00am September 21, 2024 11:15am 30.4 % . [facility] [id number] [address] [facility] [address] Monocyte s (%) (Auto) September 21, 2024 11:00am September 21, 2024 11:15am 6.3 % . [facility] [id number] [address] [facility] [address] Eosinoph ils (%) (Auto) September 21, 2024 11:00am September 21, 2024 11:15am 1.8 % . [facility] [id number] [address] [facility] [address] Basophil s (%) (Auto) September 21, 2024 11:00am September 21, 2024 11:15am 0.6 % . [facility] [id number] [address] [facility] [address] Nucleate d RBC Relative Count (auto) September 21, 2024 11:00am September 21, 2024 11:15am 0.1 /100{WBC} 0-0.5 [facility] [id number] [address] [facility] [address] Neutroph ils # (Auto) September 21, 2024 11:00am September 21, 2024 11:15am 5.1 10*3/uL 1.8-7.7 [facility] [id number] [address] [place] [id number] Lymphocy jarrod # (Auto) September 21, 2024 11:00am September 21, 2024 11:15am 2.5 10*3/uL 1.00-4.8 [facility] [id number] [address] [facility] [address] Monocyte s # (Auto) September 21, 2024 11:00am September 21, 2024 11:15am 0.5 10*3/uL 0.0-0.8 [facility] [id number] [address] [facility] [address] Eosinoph ils # (Auto) September 21, 2024 11:00am September 21, 2024 11:15am 0.2 10*3/uL 0.0-0.45 [facility] [id number] [address] [facility] [address] Basophil s # (Auto) September 21, 2024 11:00am September 21, 2024 11:15am 0.0 10*3/uL 0.0-0.2 [facility] [id number] [address] [facility] [address] Urine HCG, Qualitat amaury August 10, 2024 6:20am August 10, 2024 6:43am Negative [facility] [id number] [address] [facility] [address] Urine HCG, Qualitat amaury September 21, 2024 11:00am September 21, 2024 11:27am Negative [facility] [id number] [address] [place] [id number] Glucose Level September 21, 2024 11:00am September 21, 2024 11:39am 87 mg/dL 70-100 ADA recommended reference rangeRandom Glucose Reference Range is dependent on time and content of last meal. Glucose of more than 200 mg/dL in a nonstressed , ambulatory subject supports the diagnosis of Diabetes Mellitus. [facility] [id number] [address] [place] [id number] Blood Urea Nitrogen September 21, 2024 11:00am September 21, 2024 11:39am 11 mg/dL 7-25 [facility] [id number] [address] [facility] [address] Creatini ne September 21, 2024 11:00am September 21, 2024 11:39am 0.60 mg/dL 0.60-1.20 [facility] [id number] [address] [place] [address] Estimate d GFR (CKD-EPI ) September 21, 2024 11:00am September 21, 2024 11:39am > 60.0 mL/Min [facility] [id number] [address] [place] [address] Sodium Level September 21, 2024 11:00am September 21, 2024 11:39am 141 mmol/L 136-145 [facility] [id number] [address] [place] [address] Potassiu m Level September 21, 2024 11:00am September 21, 2024 11:39am 3.5 mmol/L 3.5-5.1 [facility] [id number] [address] [place] [address] Chloride Level September 21, 2024 11:00am September 21, 2024 11:39am 105 mmol/L 98-107 [facility] [id number] [address] [place], [place] [id number] Carbon Dioxide Level September 21, 2024 11:00am September 21, 2024 11:39am 27.4 mmol/L 21.0-31.0 [facility] [id number] [address] [place], [place] [id number] Anion Gap September 21, 2024 11:00am September 21, 2024 11:39am 12.1 mEq/L 6.0-15.0 [facility] [id number] [address] [place] [address] Calcium Level September 21, 2024 11:00am September 21, 2024 11:39am 9.2 mg/dL 8.6-10.3 [facility] [id number] [address] [place] [address] Pharmacy Creatini ne Clearanc e (Chem September 21, 2024 11:00am September 21, 2024 11:39am 134.46 [facility] [id number] [address] [place], [place] [id number] Bedside Glucose August 10, 2024 10:30am August 10, 2024 10:36am 136 mg/dL Random Glucose Reference Range is dependent on time and content of last meal. Glucose of more than 200 mg/dL in a nonstressed , ambulatory subject supports the diagnosis of Diabetes Mellitus. Point of Care testing Bedside Glucose September 21, 2024 11:00am September 21, 2024 11:07am 89 mg/dL Random Glucose Reference Range is dependent on time and content of last meal. Glucose of more than 200 mg/dL in a nonstressed , ambulatory subject supports the diagnosis of Diabetes Mellitus. Point of Care testing Bedside Glucose Comment September 21, 2024 11:00am September 21, 2024 11:07am Glu2: cleaned meter Point of Care testing Diagnostic Imaging Reports Author Alin Ornelas [facility] Authored August 10, 2024 10:4 2am Report Dictated Date/Time Dictated By Status Radiology Report August 10, 2024 10:42am Alin Ornelas Jr DO completed [facility] Main [place] [id number] XRay Report Signed Patient: Karma Candelaria MR# : [id number] : 1980 Acct:[id number] Age/Sex: 43 / F ADM Date: 5 Loc: [place] Room: Type: [facility] Attending Dr: Mendez Ortiz DO Copies to: Mendez Ortiz DO~ Ordering Provider: Mendez Ortiz DO Date of [...] Jr., D.O. 08/10/2024 10:43 AM Dictation Location: [facility]--22 Transcribed By: PWS 08/10/24 1043 Dictated By: Alin Ornelas Jr, DO 08/10/24 1042 Signed By: <Electronically signed by Alin Ornelas Jr, DO in OV> 08/10/24 104 Vital Signs Vital Reading Result Reference Range Collection Date/Time Height 63 [in_i] August 08, 2024 1:24pm Weight 102.05 kg August 08, 2024 1:24pm BMI (Body Mass Index) 39.8 kg/m2 August 082024 1:24pm Height 63 [in_i] August 10, 2024 6:32am Weight 106.00 kg August 10, 2024 6:32am Body Temperature 98 [degF] 97.6-99.0 August 10, 2024 10:50am Heart Rate 97 /min 60-100 August 10, 2024 12:13pm Respiratory rate 16 /min -August 10, 2024 12:13pm Oxygen saturation by Pulse oximetry 94 % 95-100 August 10, 2024 12:1 3pm BP Systolic 113 mm[Hg] 100-140 August 10, 2024 12:13pm BP Diastolic 73 mm[Hg] 60-100 August 10, 2024 12:13pm Inhaled oxygen flow rate 8 L/min Jul 10:23am Height 63 [in_i] September 21, 2024 11:00am Weight 97.52 kg September 21, 2024 11:00am Body Temperature 97 [degF] 97.6-99.0 September 21, 2024 12:55pm Heart Rate 97 /min 60-100 September 21, 2024 1:48pm Respiratory rate 16 /min -September 21, 2024 1:48pm Oxygen saturation by Pulse oximetry 91 % 95-100 September 21, 2024 1:48 pm BP Systolic 127 mm[Hg] 100-140 September 21, 2024 1:48pm BP Diastolic 84 mm[Hg] 60-100 September 21, 2024 1:48pm Inhaled oxygen flow rate 3 L/min Aug 12:45pm Advance Directives Advance Directive Response Recorded Date/ Time Advance Directives No August 29 3:24pm Insurance Providers Guarantor Karma Candelaria Address [address] [facility] [address] Contact Info. Home Phone: Payer Policy Id Subscriber's Name Subscriber Id Effectiv e Date Expiration Date [employer] [id number] Karma Candelaria [id number] Encounters Encounter Location(s) Arrival/Admit Date Discharge/Depart Date Provider(s) Departed Clinical -Pre-Surgical Testing July 27, 2024 10:17am July 27, 2024 10:18am Mendez Ortiz DO Departed Physician/Prov ider Office Visit -[facility] August 08, 2024 1:22pm August 08, 2024 2:05pm Precious Nye APRN Departed [facility] August 10, 2024 6:11am August 10, 2024 12:30pm Mendez Ortiz DO Departed [facility] September 21, 2024 10:19am September 21, 2024 2:20pm Mendez Ortiz DO Recent Diagnosis Onset Date Admit Date GERD (gastroesophageal reflux disease) Unknown August 08, 2024 1:22pm Irritable bowel syndrome with constipation Unkno wn August 08, 2024 1:22pm Assessments Diagnosis Onset Date Resolution Status Admit Date GERD (gastroesophageal reflu x disease) acute August 08, 2024 1 :22pm Irritable bowel syndrome wit h constipation acute August 08, 2024 1 :22pm Plan of Treatment Author Jan [facility] Authored August 08, 2024 4:06p m A 43-year-old female patient diagnosis of GERD, dyspepsia and IBS-C Continue Protonix 40 mg twice daily, utilize famotidine 40 mg twice daily for breakthrough symptoms Initiate align prescription as patient is responsive to probiotic and has been on this previously prescribed Continue Linzess 290 for IBS-C symptoms, patient does respond with every other day bowel movements utilizing Linzess Utilize Colace on an as-needed basis up to 3 times daily Ensure lifestyle modifications including adequate water intake and fiber supplementation Future Tests Future scheduled test information is unavailable Pending Tests Pending diagnostic test information is unavailable Future Visits Future appointment information is unavailable Referrals to Other Providers Reason for Referral Referral Start Date Provider Provider Contact Information Provider Address [facility] Work Phone: [address] [place] [address] [facility] Work Phone: [phone] [place] [address] Future Procedures Procedure Name Ordered Date Scheduled Date Post Anesthesia Tracer order August 10, 2024 8:0 4am August 10, 2024 8:15am Discharge Order August 10, 2024 10:14am July 10:14am Post Anesthesia Tracer order September 21, 2024 11: 07am September 21, 2024 11:15am Discharge Order September 21, 2024 12:25pm August 12:25pm Future Medications Future medication information is unavailable Patient Instructions Instruction Admit Date Know your Meds August 10, 2024 6:11 am Know your Meds September 21, 2024 10:1 9am Goals Acute Goals Author Authored Date Experience reduced anxiety * Identifies current stressors * Develops effective coping behaviors * Uses support services as appropriate [facility] August 10, 2024 12:50pm Remain free of complications [facility] August 10, 2024 12:50pm Understand preop/postop care/sensations * Verbalizes understanding of surgical procedure * Verbalizes understanding of sensations following surgery * Verbalizes understanding of post-op treatment plan [facility] August 10, 2024 12:50pm Report pain at tolerable lev el * Uses pain scale appropriately * Identify options for pain control - Analgesics - Narcotics - Non-medication measures [facility] August 10, 2024 12:50pm Absence of imbalanced fluid volume s/s [facility] August 10, 2024 11:40am Absence of physical injury [facility] August 10, 2024 12:50pm Absence of surgical site infection [facility] August 10, 2024 12:50pm Experience reduced anxiety * Identifies current stressors * Develops effective coping behaviors * Uses support services as appropriate [facility] September 21, 2024 2:50pm Remain free of complications [facility] September 21, 2024 2:50pm Understand preop/postop care/sensations * Verbalizes understanding of surgical procedure * Verbalizes understanding of sensations following surgery * Verbalizes understanding of post-op treatment plan [facility] September 21, 2024 2:50pm Report pain at tolerable lev el * Uses pain scale appropriately * Identify options for pain control - Analgesics - Narcotics - Non-medication measures [facility] September 21, 2024 2:50pm Absence of imbalanced fluid volume s/s [facility] September 21, 2024 2:50pm Absence of physical injury [facility] September 21, 2024 2:50pm Absence of surgical site infection [facility] September 21, 2024 2:50pm Hospital Discharge Instructions Additional Instructions No exertional activity, no lifting or straining, Ice to incision for 20-minute intervals May shower in 24 hours Pain medication and antibiotic as prescribed Call the office for any questions or concerns Follow-up in the office as scheduled
--- OUTSIDE RECORDS SUMMARY | 2024-09-21 12:00 | XMS_ITS | Encounter Summary ---
Author Organization [facility] Address [address] [place] [address] Care Team Providers Care Hand Candy Cutter Name Role Phone Key Andrea TWISTING FRAME OPERATOR Unavailable Shawna Dudley DO Primary Care Provider [phone] Sasha Santos DO Unavailable [phone] Mendez Ortiz DO Unavailable Encounter Details Date Type Department Care Team (Late st Contact Info) Description 09/21/2024 12:00 PM EDT Procedure Visit [facility] Mendez Ortiz, [address] [place] [address] Obstructive sleep apnea (Primary Dx) Social History [...] on file documented as of this encounter Progress Notes * Mendez Ortiz DO - 09/21/2024 12:00 PM EDT Subjective Patient ID: Karma Banegas is a 43 y.o. female who presents for No chief complaint on file. HPI This patient presents for revision of inspire implant. Review of Systems Patient has a history of increased mobility of the implant causing significant discomfort. The restof her review of systems is unchanged. Objective ENT Physical Exam The area of the implant is explored. Her sutures have been pulled away from the muscle of the chest. The area is irrigated and new sutures are placed to help fixate the generator. Assessment/Plan Diagnoses and all orders for this visit: Obstructive sleep apnea Comments: The area of the generator is explored and fixation sutures are placed, follow up in the office as scheduled documented in this encounter Plan of Treatment Upcoming Encounters Date Type Department Care Team (Late st Contact Info) Description 09/29/2024 10:15 AM EDT Office Visit [facility] [address] [place] [place] [address] Mendez Ortiz DO [address] [place] [address] 12/01/2024 11:00 AM EDT Office Visit [facility] [address] [place] [address] Cleo Zambrano MD [address] [place] [address] 05/31/2025 1:00 PM EDT Office Visit [facility] BONILL[facility] [address] [facility] [place] [phone] Roel Garber DO [address] [facility] [place] [address] 08/18/2025 2:00 PM EDT Office Visit [facility] [address] [place] [address] Mendez Ortiz DO [address] [place] [address] documented as of this encounter Visit Diagnoses Diagnosis Obstructive sleep apnea- Primary Obstructive sleep apnea (adult) (pediatric) documented in this encounter Care Teams Hand Candy Cutter Relationship Specialty Start Date End Date Vicky DudleytyDO [address] [place] [address] PCP - General Family Medicine 04/14/22 Key Andrea NP [address] [place] [address] Referring Physician Family Medicine 08/13/23 Sasha Santos DO [address] [place] [address] Referring Physician Neurology 05/10/24 Mendez Ortiz DO [address] [place] [address] Otolaryngology 08/19/24 documented as of this encounter
--- OUTSIDE RECORDS SUMMARY | 2024-09-27 10:45 | XMS_ITS ---
Author Organization [facility] in [place] Address [address] [place] [address] Care Team Providers Care Pulp Drier Firer Name Role Phone Villa CHERRY, Rory Primary Care Provider Unavailab Carmen Cuellar Unavailable [phone] REASON FOR VISIT MD Encounters Encounter Location Date Provider Diagnosis [facility] Oncology [address] [place] [address] 09/27/2024 Carmen Fisher Plan Of Treatment Next Appt Details Provider Name:Carmen Fisher , 12/27/2024 01:15:00 PM, [address] [place], [address], Progress Notes * Karma WHITEHEADDOB:[birth year] (44 yo F)Acc No.[id number]:09/27/2024 UNLOCKED PROGRESS NOTE Progress Notes Patient: Karma MUNOZ Provider: Kerline Fisher M.D. :1980 A ge:44 Y S ex:Female Date:09/27/2024 Address:[address] [place] [address] Pcp:Rory Driver NP Subjective: * Chief Complaints: * 1 . MD. * Medical History: Objective: * Vitals: Assessment: Plan: * Treatment: * * Electronic signature of Jonny Fisher MD, [id number] on 09/28/2024 at 08:34 AM EDT Sign off status: Pending Visit Status: V OIKURTMSG (Voice) * Provider: Kerline Fisher M.D. Date: 0 09/27/2024 Generated for Travis shoemaker/Catherine/Sonal on: 09/28/2024 08:34 AM EDT
--- OUTSIDE RECORDS SUMMARY | 2024-09-28 08:34 | XMS_ITS | Encounter Summary ---
Author Organization [facility] Address [facility] [id number] [address] [place] [address] Care Team Providers Care Wheat And Oats Flake Miller Name Role Phone Services, [facility] Primary Care Provider Encounter Details Date Type Department Care Team (Late st Contact Info) Description 05/10/2020 Telephone [facility] Family Medicine [address] [place] [address] Kimberlyn Juarez CMA Social History Tobacco Use [...] documented as of this encounter Care Teams Wheat And Oats Flake Miller Relationship Specialty Start Date End Date Services, [facility] [address] [place], [place] PCP - General Family Medicine 10/05/23 documented as of this encounter
--- OUTSIDE RECORDS SUMMARY | 2024-09-28 08:34 | XMS_ITS | Encounter Summary ---
Author Organization [facility] Address [address] [place] [address] Care Team Providers Care Branch Retail Executive Name Role Phone Key Andrea REPAIRER RECREATIONAL VEHICLE Unavailable Shawna Dudley DO Primary Care Provider [phone] Sasha Santos DO Unavailable [phone] Mendez Ortiz DO Unavailable [phone] Reason for Visit * Reason Comments Med Refill Encounter Details Date Type Department Care Team (Late st Contact Info) Description 05/19/2024 [facility] [address] [facility] [address] [place] [address] Archana Naylor, TEMP RECRUITER-GREY GOODS EXAMINER [address] [facility] [address] [place] [address] Rash and other nonspecific skin eruption Social [...] Description 09/29/2024 10:15 AM EDT Office [facility] [address] [place] [address] Mendez Ortiz DO [address] [place] [address] 12/01/2024 11:00 AM EDT Office Visit [facility] [address] [place] [address] Cleo Zambrano MD [address] [place] [address] 05/31/2025 1:00 PM EDT Office Visit [facility] [address] [facility] [place] [address] Roel Garber DO [address] [facility] [address] 08/18/2025 2:00 PM EDT Office Visit [facility] [address] [place] [address] Mendez Ortiz DO [address] [place] [address] documented as of this encounter Visit Diagnoses Diagnosis Rash and other nonspecific skin eruption documented in this encounter Care Teams Branch Retail Executive Relationship Specialty Start Date End Date Shawna Dudley DO [address] [place] [address] PCP - General Family Medicine 04/14/22 Key Andrea NP [address] [place] [address] Referring Physician Family Medicine 08/13/23 Sasha Santos DO [address] [place] [address] Referring Physician Neurology 05/10/24 Mendez Ortiz DO [address] [place] [address] Otolaryngology 08/19/24 documented as of this encounter
--- OUTSIDE RECORDS SUMMARY | 2024-09-28 08:34 | XMS_ITS | Patient Health Record ---
Author Organization The [facility] [place] Address [address] [place] [address] Care Team Providers Care Fuel Cell Test Engineer Name Role Phone Rory Driver NP Primary Care Provider Unavailab Luther Cuellarorva Unavailable [phone] Joy Yung Unavailable [phone] Veena Thacker Unavailable [phone] Allergies Allergen (clinical drug ingredient) Drug/Non Drug Allergy documented on EMR Reaction Allergy Type Onset Date Status citalopram CeleXA Unknown Drug Allergy Active Keflex Unknown Drug Allergy Active metformin Metformin Unknown Drug Allergy Active Results Component Value Reference Range Notes FERRITIN (Not yet reviewed b y provider) Interpretation: Performing Lab: Notes/Report: The [facility] , Ferritin 469.0 8.0-252.0 ng/mL Performing Lab: see note ML - The [facility] LB FREE T4 (Not yet reviewed by provider) Interpretation: Performing Lab: Notes/Report: [facility] , Free T4 0.81 0.76-1.46 ng/dL Performing Lab: see note ML - [facility] LB VITAMIN D 25 [place] (Not yet rev iewed by provider) Interpretation: Performing Lab: Notes/Report: [facility] , Vitamin D 38.6 >100 ng/mL Potential Toxicity 20-<30 ng/mL Vit D insufficient <20 ng/mL Vit D deficient 30-100 ng/mL Vit D sufficient Performing Lab: see note ML - [facility] LB Vitamin B12 (Not yet reviewe d by provider) Interpretation: Performing Lab: Notes/Report: [facility] , Vitamin B12 370.0 193.0-986.0 pg/mL Performing Lab: see note ML - The [facility] LB Vitamin B12 (Not yet reviewe d by provider) Interpretation: Performing Lab: Notes/Report: [facility] , Vitamin B12 766 847-3747 pg/mL Jig And Fixture Builder Apprentice: Harry Rodriguez PhD, Phone: [phone] Performed at: [address] [id number] Performing Lab: see note - [facility] LB CBC AUTO DIFF (Not yet revie wed by provider) Interpretation: Performing Lab: Notes/Report: [facility] , White Blood Count 8.7 4.0-11.0 10 [...] 10 3/uL Performing Lab: see note - The [facility] LB Vitamin B12 (Not yet reviewe d by provider) Interpretation: Performing Lab: Notes/Report: [facility] , Vitamin B12 154 983-2570 pg/mL Jig And Fixture Builder Apprentice: Harry Rodriguez PhD, Phone: [phone] Performed at: [address] [id number] Performing Lab: see note [facility] Vitamin B12 (Not yet reviewe d by provider) Interpretation: Performing Lab: Notes/Report: [facility] , Vitamin B12 054 030-8966 pg/mL Performed at: [facility] Jig And Fixture Builder Apprentice: Harry Rodriguez PhD, Phone: [phone] [address] [place], [place] [id number] Performing Lab: see note [facility] VITAMIN D 25 [place] (Not yet rev iewed by provider) Interpretation: Performing Lab: Notes/Report: [facility] , Vitamin D 40.8 >100 ng/mL Potential Toxicity <20 ng/mL Vit D deficient 20-<30 ng/mL Vit D insufficient 30-100 ng/mL Vit D sufficient Performing Lab: see note ML - [facility] PROF CHEM 8 (BAS METB) (Not yet reviewed by provider) Interpretation: Performing Lab: Notes/Report: [facility] , Sodium 142 136-145 mmol/L Potassium [...] mg/dL Performing Lab: see note ML - The [facility] LAB TESTING (Not yet reviewe d by provider) Interpretation: Performing Lab: Notes/Report: [id number] Ferritin [facility] , Miscellaneous Test COMMENT . Ferritin 730 [H ] ng/mL CB Performed at: [facility] Test Ordered: [id number] Ferritin Reference Range: 15-[address] [place] [id number] Jig And Fixture Builder Apprentice: Harry Rodriguez PhD, Phone: [phone] Performing Lab: see note LC - [facility] LB IRON AND TIBC (Not yet revie wed by provider) Interpretation: Performing Lab: Notes/Report: [facility] , Iron 68.0 50.0-170.0 ug/dL Total Iron Binding Capacity 307.0 250.0-450.0 ug/dL Percent Iron Saturation 22.1 Performing Lab: see note ML - [facility] LB FOLATE (Not yet reviewed by provider) Interpretation: Performing Lab: Notes/Report: [facility] , Folate 44.00 8.60-58.90 ng/mL Performing Lab: see note ML - [facility] LB CBC AUTO DIFF (Not yet revie wed by provider) Interpretation: Performing Lab: Notes/Report: [facility] , White Blood Count 10.9 4.0-11.0 10 [...] Performing Lab: see note ML - [facility] LB VITAMIN D 25 [place] (Not yet rev iewed by provider) Interpretation: Performing Lab: Notes/Report: [facility] , Vitamin D 44.7 20-<30 ng/mL Vit D insufficient 30-100 ng/mL Vit D sufficient >100 ng/mL Potential Toxicity <20 ng/mL Vit D deficient Performing Lab: see note ML - The [facility] LB PROF 14(COMP METB) (Not yet reviewed by provider) Interpretation: Performing Lab: Notes/Report: [facility] , Sodium 139 136-145 mmol/L Potassium [...] 1.0 Performing Lab: see note ML - [facility] LB IRON AND TIBC (Not yet revie wed by provider) Interpretation: Performing Lab: Notes/Report: [facility] , Iron 44.0 50.0-170.0 ug/dL Total Iron Binding Capacity 260.0 250.0-450.0 ug/dL Percent Iron Saturation 16.9 Performing Lab: see note ML - [facility] LB FERRITIN (Not yet reviewed b y provider) Interpretation: Performing Lab: Notes/Report: [facility] , Ferritin 505.0 8.0-252.0 ng/mL Performing Lab: see note ML - [facility] LB TSH W/ REFLEX FT4 (Not yet r eviewed by provider) Interpretation: Performing Lab: Notes/Report: [facility] , TSH W/ REFLEX FT4 1.272 0.358-3.740 uIU/mL Performing Lab: see note ML - [facility] LB VITAMIN D 25 [place] (Not yet rev iewed by provider) Interpretation: Performing Lab: Notes/Report: [facility] , Vitamin D 40.9 <20 ng/mL Vit D deficient 20-<30 ng/mL Vit D insufficient 30-100 ng/mL Vit D sufficient >100 ng/mL Potential Toxicity Performing Lab: see note ML - [facility] LB PROF CHEM 8 (BAS METB) (Not yet reviewed by provider) Interpretation: Performing Lab: Notes/Report: [facility] , Sodium 141 136-145 mmol/L Potassium [...] mg/dL Performing Lab: see note ML - [facility] LB IRON AND TIBC (Not yet revie wed by provider) Interpretation: Performing Lab: Notes/Report: [facility] , Iron 86.0 50.0-170.0 ug/dL Total Iron Binding Capacity 346.0 250.0-450.0 ug/dL Percent Iron Saturation 24.9 Performing Lab: see note ML - [facility] LB FERRITIN (Not yet reviewed b y provider) Interpretation: Performing Lab: Notes/Report: [facility] , Ferritin 622.0 8.0-252.0 ng/mL Performing Lab: see note ML - [facility] LB CBC AUTO DIFF (Not yet revie wed by provider) Interpretation: Performing Lab: Notes/Report: [facility] , White Blood Count 10.1 4.0-11.0 [...] Performing Lab: see note ML - [facility] LB VITAMIN D 25 [place] (Not yet rev iewed by provider) Interpretation: Performing Lab: Notes/Report: [facility] , Vitamin D 38.6 30-100 ng/mL Vit D sufficient >100 ng/mL Potential Toxicity 20-<30 ng/mL Vit D insufficient <20 ng/mL Vit D deficient Performing Lab: see note ML - [facility] LB IRON AND TIBC (Not yet revie wed by provider) Interpretation: Performing Lab: Notes/Report: [facility] , Iron 48.0 50.0-170.0 ug/dL Total Iron Binding Capacity 348.0 250.0-450.0 ug/dL Percent Iron Saturation 13.8 Performing Lab: see note ML - [facility] LB FERRITIN (Not yet reviewed b y provider) Interpretation: Performing Lab: Notes/Report: [facility] , Ferritin 197.0 8.0-252.0 ng/mL Performing Lab: see note - [facility] LB CBC AUTO DIFF (Not yet revie wed by provider) Interpretation: Performing Lab: Notes/Report: [facility] , White Blood Count 9.0 4.0-11.0 [...] 10 3/uL Performing Lab: see note - [facility] LB FERRITIN (Not yet reviewed b y provider) Interpretation: Performing Lab:[facility] ([facility]), [address], [place]. [address] PH:[phone] Notes/Report: FERRITIN 195 11-307 ng/mL PERFORMED AT [place] [address] [place] [address] IRON PROFILE ([facility]) (No t yet reviewed by provider) Interpretation: Performing Lab:[facility] ([facility]), [facility] [address] [facility], [place]. [address] PH:[phone] Notes/Report: IRON 53 50-170 ug/dL IRON BINDING 374 250-425 ug/dL IRON SATURATION 14 15-50 % SATURATION PERFOR MED AT [address] [place] [address] CBC AND AUTO DIFF * (Not yet reviewed by provider) Interpretation: Performing Lab:[facility] ([facility]), [address] [place] [address] AVE[address] [facility], [place]. [address] PH:[phone] Notes/Report: WBC COUNT 8.4 4.0-11.0 X10E9/L RBC [...] BASOPHIL 0.0 0.0-0.2 X10E9/L PERFORM ED AT [place] [address] [facility],[place] [address] BMP w/GFR (Not yet reviewed by provider) Interpretation: Performing Lab:[facility] ([facility]), [address], [place]. [address] PH:[phone] Notes/Report: SODIUM 138 134-146 mmol/L POTASSIUM 4.2 [...] not use a race coefficient. PERFORMED AT [place] [address],[place] [address] Reported eGFR is based on the TSH (Not yet reviewed by pro vider) Interpretation: Performing Lab: Notes/Report: [facility] , Thyroid Stimulating Hormone 1.075 0.358-3.740 uIU/mL Performing Lab: see note ML - [facility] LB IRON AND TIBC (Not yet revie wed by provider) Interpretation: Performing Lab: Notes/Report: [facility] , Iron 65.0 50.0-170.0 ug/dL Total Iron Binding Capacity 352.0 250.0-450.0 ug/dL Percent Iron Saturation 18.5 Performing Lab: see note ML - [facility] LB CBC AUTO DIFF (Not yet revie wed by provider) Interpretation: Performing Lab: Notes/Report: [facility] , White Blood Count 8.4 4.0-11.0 [...] Performing Lab: see note ML - [facility] LB XR ankle LT min 3V (Not yet reviewed by provider) Interpretation: Performing Lab: Notes/Report: Source Facility: [place] [address] [place] [address] XRay Report Signed Patient: PEE WHITEHEAD MR#: [id number] : 1980 Acct:[id number] Age/Sex: 43 / F ADM Date: 04/06/24 Loc: RAD Attending Dr: Joy Yung D.P.M. Ordering Physician: Joy Yung D.P.M. Date of Service: 04/06/24 Procedure(s): XR ankle LT min 3V Accession Number(s): [id number] cc: Joy Yung D.P.M.; Loreto Mcneal NP [place] [address] Patient Name: PEE WHITEHEAD MRN: [id number] date: 1980 Sex: F Assigned Patient Location: RAD Current Patient Location: ED.MAIN Accession/Order Number: [id number] Exam Date: 04/06/2024 11:15 Report Date: 04/08/2024 11:28 At the request of: JYO YUNG Procedure: XR ankle LT min 3V [...] Signed By: 04/08/24 1131 DD/ 1128 TD/TT: Academic Hospitalist: [place] [address] XRay Report Signed Patient: PEE WHITEHEAD MR#: [id number] : 1980 Acct:[id number] Age/Sex: 43 / F ADM Date: 04/06/24 Loc: RAD Attending Dr: Joy Yung D.P.M. Ordering Physician: Joy Yung D.P.M. Date of Service: 04/06/24 Procedure(s): XR ank le LT min 3V Accession Number(s): [id number] cc: Joy Yung D.P.M.; Loreto Mcneal SHEAR OPERATOR [place] [id number] Patient Name: PEE WHITEHEAD MRN: [id number] date: 1980 Sex: F Assigned Patient Location: RAD Current Patient Location: ED.MAIN Accession/Order Numb er: [id number] Exam Date: 04/06/2024 11:15 Report Date: 04/08/2024 [...] Signed By: 04/08/24 1131 DD/ 1128 TD/TT: Academic Hospitalist: XR foot LT min 3V (Not yet r eviewed by provider) Interpretation: Performing Lab: Notes/Report: Source Facility: [place] [address] XRay Report Signed Patient: PEE WHITEHEAD MR#: [id number] : 1980 Acct:[id number] Age/Sex: 43 / F ADM Date: 04/06/24 Loc: RAD Attending Dr: Joy Yung D.P.M. Ordering Physician: Joy Yung D.P.M. Date of Service: 04/06/24 Procedure(s): XR foot LT min 3V Accession Number(s): [id number] cc: Joy Yung D.P.M.; Loreto Mcneal SHEAR OPERATOR [place] [address] Patient Name: PEE WHITEHEAD MRN: [id number] date: 1980 Sex: F Assigned Patient [facility] Current Patient Location: ED.[facility] Accession/Order Number: [id number] Exam Date: 04/06/2024 11:15 Report Date: 04/08/2024 [...] Signed By: 04/08/24 1131 DD/ 1128 TD/TT: Academic Hospitalist: [place] [address] XRay Report Signed Patient: PEE WHITEHEAD MR#: [id number] : 1980 Acct:[id number] Age/Sex: 43 / F ADM Date: 04/06/24 Loc: RAD Attending Dr: Joy Yung D.P.M. Ordering Physician: Joy Yung D.P.M. Date of Service: 04/06/24 Procedure(s): XR miryam t LT min 3V Accession Number(s): [id number] cc: Joy Yung D.P.M.; Loreto Mcneal NP [place] [id number] Patient Name: PEE WHITEHEAD MRN: [id number] date: 1980 Sex: F Assigned Patient Location: RAD Current Patient Location: ED.MAIN Accession/Order Numb er: [id number] Exam Date: 04/06/2024 11:15 Report Date: 04/08/2024 [...] Signed By: 04/08/24 1131 DD/ 1128 TD/TT: Academic Hospitalist: Vitamin B12 (Not yet reviewe d by provider) Interpretation: Performing Lab: Notes/Report: [facility] , Vitamin B12 698 399-0441 pg/mL [address] [place], [place] [id number] Performed at: - [facility] [place] Jig And Fixture Builder Apprentice: Harry Rodriguez PhD, Phone: [phone] Performing Lab: see note - [facility] LB Reason For Referral Reason see attached rx Diagnosis 1 Ingrowing nail (L60. 0) Referral Organization [facility] ([facility]) Referring Provider First Name Veena Referring Provider Last Name Kedar Referring Provider Speciality Podiatry Referred Provider Specialty Pharmacist General Notes Austin Paz 06/2023 11:02:08 AM >Patient wants to get oral medication. Referred to her PCP. Referral Priority Routine Reason Referral to [place] 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 Vital Signs Heart Rate 88 /min 04/06/2024 Temperature 97.5 degrees Fahrenheit 04/06/2024 Oximetry 98 % 04/06/2024 Height 63 in 04/06/2024 Encounters Encounter Location Date Provider Diagnosis [facility] ([facility]) [address] [place] [address] [place] [address] 11/26/2023 Veenagunnar Lawen Ingrowing nail L60.0 and Post-traumatic osteoarthritis, left ankle and foot M19.172 [facility] ([facility]OD[facility]) [address] [place] [address] [place] [address] 04/06/2024 Joy Yung Post-traumatic osteoarthritis, left ankle and foot M19.172 ; Ingrowing nail L60.0 ; Tinea unguium B35.1 and Pain in left ankle and joints of left foot M25.572 [facility] [address] [place] [place] [place] [address] 02/22/2024 Carmen [facility] [address] [place] [place] [address] 03/29/2024 Carmen [facility] [address] [place] [place] [address] 06/14/2024 Carmen [facility] [address] [place] [place] [address] 02/11/2024 Carmen [facility] [address] [place] [place] [address] 09/29/2023 Carmen [facility] [address] [place] [address] 12/22/2023 Carmen [facility] [address] [place] [address] 09/27/2024 Carmen Fisher [facility] (PODIAT[facility]) [address] [place] [address] [place] [address] 11/30/2023 Veena Thacker Assessments Encounter Date Diagnosis [...] patient satisfaction. [facility] may [facility] to manage [...] Vitamin B12 06/13/2024 Next Appt Details Provider Name:Carmenkarime Fisher , 12/27/2024 01:15:00 PM, [address] [place], [address], Insurance Providers Payer Name Payer Address Payer Phone Subscriber Number Group Number Insured Name Patient Relationship to Insured Coverage Start Date Coverage End Date [employer] [place] [address] [place] [phone] [id number] Pee Wilson Self - patient is the [...]
--- OUTSIDE RECORDS SUMMARY | 2024-09-28 08:34 | XMS_ITS | Encounter Summary ---
Author Organization [facility] Address [address] [facility] [place] [address] Care Team Providers Care Process Tank Tender Name Role Phone Key Andrea DOUGH CATCHER Unavailable Shawna Dudley DO Primary Care Provider [phone] Sasha Santos DO Unavailable [phone] Mendez Ortiz DO Unavailable [phone] Encounter Details Date Type Department Care Team (Late st Contact Info) Description 06/02/2023 Orders Only [facility] [address] [place] [address] Becky Silvestre LPN [address] [employer] [place] [facility] [place] [address] [place] [address] Social History Tobacco Use Types Packs/Day [...] Department Care Team (Late Contact Info) Description 09/29/2024 10:15 AM EDT Office Visit [facility] [place] [facility] [address] [place] [address] Mendez Ortiz, [address] [place] [address] 12/01/2024 11:00 AM EDT Office Visit [facility] [address] [place] [address] Cleo Zambrano MD [address] [place] [address] 05/31/2025 1:00 PM EDT Office Visit [facility] BONILL[facility] [address] [facility] [place] [address] Roel Garber DO [address] [facility] [place] [address] 08/18/2025 2:00 PM EDT Office Visit [facility] [address] [place] [address] Mendez Ortiz DO [address] [place] [address] documented as of this encounter Procedures Procedure Name Priority Date/Time Associated Diagnosis Comments PAP SMEAR Routine 05/25/2023 12:00 AM EDT documented in this encounter Results * Pap Smear (05/25/2023 12:00 AM EDT) Swab Cervical swab / Unknown us Roel Garber DO LAB CYTOLOGY ORDERABLES Final Re sult EXTERNAL LAB documented in this encounter Visit Diagnoses Not on filedocumented in this encounter Care Teams Process Tank Tender Relationship Specialty Start Date End Date Shawna Dudley DO [address] [place] [address] PCP - General Family Medicine 04/14/22 Key Andrea NP [address] [place] [address] Referring Physician Family Medicine 08/13/23 Sasha Santos DO [address] [place], [place] [address] Referring Physician Neurology 05/10/24 Mendez Ortiz DO [address] [place] [address] Otolaryngology 08/19/24 documented as of this encounter
--- OUTSIDE RECORDS SUMMARY | 2024-09-28 08:34 | XMS_ITS | Encounter Summary ---
Author Organization [facility] Address [address] [facility] [place] [address] Care Team Providers Care Box Sealing Machine Operator Name Role Phone Key Andrea STRIPPING AND BOOKING MACHINE OPERATOR Unavailable Shawna Dudley DO Primary Care Provider [phone] Sasha Santos DO Unavailable [phone] Mendez Ortiz DO Unavailable [phone] Encounter Details Date Type Department Care Team (Late Contact Info) Description 06/01/2024 Abstract [facility] [address] [facility] [place] [place] [address] Roel Garber DO [address] [facility] [address] [place], [place] [address] Social History Tobacco Use Types Packs/Day Years [...] Upcoming Encounters Date Type Department Care Team ([facility] [address] Contact Info) Description 09/29/2024 10:15 AM EDT Office Visit [facility] [place] [facility] [address] [place] [address] Mendez Ortiz DO [address] [place] [address] 12/01/2024 11:00 AM EDT Office Visit [facility] [address] [place] [address] Cleo Zambrano MD [address] [place] [address] 05/31/2025 1:00 PM EDT Office Visit [facility] BONILLA [address] [facility] [place] [address] Roel Garber DO [address] [facility] [place] [address] 08/18/2025 2:00 PM EDT Office Visit [facility] Otolaryng[facility] [address] [place] [address] Mendez Ortiz DO [address] [place] [address] documented as of this encounter Visit Diagnoses Not on filedocumented in this encounter Care Teams Box Sealing Machine Operator Relationship Specialty Start Date End Date Shawna Dudley DO [address] [place] [address] PCP - General Family Medicine 04/14/22 Key Andrea NP [address] [place] [address] Referring Physician Family Medicine 08/13/23 Sasha Santos DO [address] [place] [address] Referring Physician Neurology 05/10/24 Mendez Ortiz DO [address] [place] [address] Otolaryngology 08/19/24 documented as of this encounter
--- OUTSIDE RECORDS SUMMARY | 2024-09-28 08:34 | XMS_ITS | Encounter Summary ---
Author Organization [facility] tem Address [id number] [address] 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 She cannot deal with [facility] [...] documented as of this encounter Care Teams Runner Out Relationship Specialty Start Date End Date Services, [facility] [address] [place] PCP - General Family Medicine 10/05/23 documented as of this encounter
--- OUTSIDE RECORDS SUMMARY | 2024-09-28 08:34 | XMS_ITS | Encounter Summary ---
Author Organization [facility] tem Address [facility] [place]-[id number] [address] [place] [address] Care Team Providers Care Medical Health Researcher Name Role Phone Services, [facility] Primary Care Provider Encounter Details Date Type Department Care Team (Late st Contact Info) Description 05/09/2022 Telephone [facility] Management Clinic [address] [place] [phone] Patricia Clay RN Social History Tobacco Use [...] as well as a phone number for [employer] ( ). 1540 Call was placed to patient for clarification as there is no documentation in regards to a needfor additional information for TENS unit. Patient states per her insurance, [email or web address], she must use [employer]. Per patient, she has made multiple calls to both this office and [employer] and nothing hasbeen done and now the order has been canceled. Patient is informed that this office has not received any requests from [employer] and that there is no documentation of [employer] contacting this office. Patient states she had definitely called this office multiple times and she states she provided Maria C Dupree with the correct phone and fax numbers for this office. Patient is again informed that this o ffice has not received any requests from [employer] in any form. She states that she didn't realize until the end of April that she had to go through [employer]. She wanted her TENS prior to upcoming surgery on and now because you guys didn't do what you were suppose to do, I'm not goingto have it before my surgery'. Patient was again informed that [facility] has not contacted this office. Associate Dentist offered to call [employer] [facility] at the phone number provided on message. 1543 Call was placed to Maria C [facility]. At 1547 insurance writer spoke with Faye who was advised of [...] surgery. She was asked if she wanted insurance writer to continue efforts to rectify the matter. [...] fax has been received as of today. Associate Dentist spoke with Valarie and explained this to her. She apologized and stated that since the order was reactivated, insurance verification was needed prior to them sending the fax to this office. Valarie states that insurance verification has been received. She states she will note insurance verification and submit order and ji urgent. She states fax should be received soon. Associate Dentist asked Valarie to verify fax number. Valarie listed the two fax numbers that she had on file. Neither of the numbers was the correct fax number. Valarie was given the correct fax number to this office ([phone]). She apologized and read back correct fax number. * Telephone Encounter - Patricia Clay RN - 05/09/2022 3:57 PM EST [facility] TENS order form was completed and faxed to [facility] this morning. * Telephone Encounter - Particia Clay RN - 05/09/2022 3:57 PM EST Call received from Yaneli ([facility]). Yaneli was calling to see if request [...] with the correct fax for this office [phone]. * Telephone Encounter - Patricia Clay RN - 05/09/2022 3:57 PM EST Patient called today and stated [facility] is requiring a prior auth for TENS. Patient is informed that order was received, signed and faxed back to [facility] last week. She is informed that if additional information is needed she may need to reach to [facility] as they have repeatedly sent forms to theincorrect fax number despite them being provided with the correct fax number [phone]. Patient expresses her frustration with [facility] and states she will give them a [...] documented as of this encounter Care Teams Medical Health Researcher Relationship Specialty Start Date End Date Services, [facility] [address] [place], [place] PCP - General Family Medicine 10/05/23 documented as of this encounter
--- OUTSIDE RECORDS SUMMARY | 2024-09-28 08:34 | XMS_ITS | Encounter Summary ---
Author Organization [facility] [employer] [facility] tem Address [id number] [address] [place] [address] Care Team Providers Care In Store Marketer Name Role Phone Services, [facility] Primary Care Provider Encounter Details Date Type Department Care Team (Late st Contact Info) Description 05/10/2020 Telephone [facility] Family Medicine [address] [place] [address] Austin Yin CNA Social History Tobacco Use [...] documented as of this encounter Care Teams In Store Marketer Relationship Specialty Start Date End Date Services, [facility] [address] [place], [place] PCP - General Family Medicine 10/05/23 documented as of this encounter
--- OUTSIDE RECORDS SUMMARY | 2024-09-28 08:34 | XMS_ITS | Encounter Summary ---
Author Organization [facility] tem Address [facility] [place][id number] [address] [place] [address] Care Team Providers Care Websphere Message Broker Developer Name Role Phone Services, [facility] Primary Care Provider Encounter Details Date Type Department Care Team (Late st Contact Info) Description 05/02/[address] [facility] Family Medicine [address] [place] [address] Austin Yin CNA Social History Tobacco Use [...] will replace metformin rx rx sent [facility] Please call [facility] and d/c the metformin rx * Telephone Encounter - Austin Yin CMA - 05/02/2020 4:42 PM EST Spoke with patient regarding the actos prescription. Patient has already picked up the metformin but I informed her not to take this medication and to take the actos instead. Patient verbalized understanding. Called [facility] in [place] and left message for them [...] documented as of this encounter Care Teams Websphere Message Broker Developer Relationship Specialty Start Date End Date [facility], [facility] [address] [place] PCP - General Family Medicine 10/05/23 documented as of this encounter
--- OUTSIDE RECORDS SUMMARY | 2024-09-28 08:34 | XMS_ITS | Encounter Summary ---
Author Organization [facility] Address [address] [place] [address] Care Team Providers Care Ceramic Design Engineer Name Role Phone Loreto Mcneal Primary Care Provider [phone] Encounter Details Date Type Department Care Team (Late st Contact Info) Description 09/15/2024 Telephone [facility] Card[facility] Clinic [address] [place] [phone] Peyton Bloom MA Social History Tobacco Use [...] hypertension documented in this encounter Care Teams Ceramic Design Engineer Relationship Specialty Start Date End Date Loreto Mcneal [facility] [address] PCP - General 03/30/24 documented as of this encounter
--- OUTSIDE RECORDS SUMMARY | 2024-09-28 08:34 | XMS_ITS | Encounter Summary ---
Author Organization [facility] Sys tem Address [facility] [place][id number] [address] [place] [address] Care Team Providers Care Application Dba Name Role Phone Services, [facility] Primary Care Provider Encounter Details Date Type Department Care Team (Late st Contact Info) Description 02/17/2020 Orders Only [facility] [address] [place] [phone] Zelalem Pathak MD [address]. Provider retired 05/31/24 [place], [place] [phone] Social History Tobacco Use Types Packs/Day Years [...] documented as of this encounter Care Teams Application Dba Relationship Specialty Start Date End Date [facility], [facility] [address] [place], [place] PCP - General Family Medicine 10/05/23 documented as of this encounter
--- OUTSIDE RECORDS SUMMARY | 2024-09-28 08:34 | XMS_ITS | Encounter Summary ---
Author [facility] Address [facility]-[id number] [address] [place] [address] Care Team Providers Care Safety Grooving Machine Operator Name Role Phone Services, [facility] Primary Care Provider Encounter Details Date Type Department Care Team (Late st Contact Info) Description 07/13/2018 Telephone [facility] Family Medicine [address] [place] [phone] Amy Cerna LPN Social History Tobacco Use [...] as of this encounter Care Teams Safety Grooving Machine Operator Relationship Specialty Start Date End Date [facility], [facility] [address] [place], [place] PCP - General Family Medicine 10/05/23 documented as of this encounter
--- OUTSIDE RECORDS SUMMARY | 2024-09-28 08:34 | XMS_ITS | Encounter Summary ---
Author Organization [facility] tem Address [id number] [address] [place] [address] Care Team Providers Care Infantry Operations Specialist Name Role Phone Services, [facility] Primary Care Provider Reason for Visit * Reason Onset Date Comments denial 09/22/2018 Encounter Details Date Type Department Care Team (Late st Contact Info) Description 09/22/2018 Telephone [facility] - [facility] Management [facility] [address] [place] [address] Gli Alba PA [address] [facility], 2nd [address] [place], [place] [phone] denial Social History Tobacco Use Types Packs/Day [...] documented as of this encounter Care Teams Infantry Operations Specialist Relationship Specialty Start Date End Date Services, [facility] [address] [place], [place] PCP - General Family Medicine 10/05/23 documented as of this encounter
--- OUTSIDE RECORDS SUMMARY | 2024-09-28 08:34 | XMS_ITS | Encounter Summary ---
Author Organization [facility] Address [address] [facility] [place] [address] Care Team Providers Care Cone Treater Name Role Phone Zully, Key PERCH MACHINE INSPECTOR Unavailable Shawna Dudley DO Primary Care Provider [phone] Sasha Santos DO Unavailable [phone] Mendez Ortiz DO Unavailable [phone] Encounter Details Date Type Department Care Team (Late st Contact Info) Description 06/07/2024 Abstract [facility] [address] [place] [address] [place] [address] Bela Ribeiro LPN Social History Tobacco [...] Visit [facility] [address] [place] [address] Mendez Ortiz DO [address] [place] [address] 12/01/2024 11:00 AM EDT Office Visit [facility] [address] [place] [phone] Cleo Zambrano MD [address], [address] [place] [address] 05/31/2025 1:00 PM EDT Office Visit [facility] [place] [facility] [address] [place] [phone] Roel Garber DO [address] [facility] [place] [address] 08/18/2025 2:00 PM EDT Office Visit [facility] [address] [place] [address] Mendez Ortiz DO [address] [place] [address] documented as of this encounter Visit Diagnoses Not on filedocumented in this encounter Care Teams Cone Treater Relationship Specialty Start Date End Date Shawna Dudley DO [address] [place] [address] PCP - General Family Medicine 04/14/22 Key Andrea NP [address] [place] [address] Referring Physician Family Medicine 08/13/23 Sasha Santos DO [address] [place] [address] Referring Physician Neurology 05/10/24 Mendez Ortiz DO [address] [place] [address] Otolaryngology 08/19/24 documented as of this encounter
--- OUTSIDE RECORDS SUMMARY | 2024-09-28 08:34 | XMS_ITS | Encounter Summary ---
Author [facility] Address [facility] [place] [place]-[id number] [address] [place] [address] Care Team Providers Care Marketing Program Coordinator Name Role Phone Services, [facility] Primary Care Provider Encounter Details Date Type Department Care Team (Late st Contact Info) Description 06/30/2019 Telephone [facility] Family Medicine [address] [place] [phone] Amy Cerna LPN Social History Tobacco Use [...] documented as of this encounter Care Teams Marketing Program Coordinator Relationship Specialty Start Date End Date Services, [facility] [address] [place], [place] PCP - General Family Medicine 10/05/23 documented as of this encounter
--- OUTSIDE RECORDS SUMMARY | 2024-09-28 08:34 | XMS_ITS | Encounter Summary ---
Author Organization [facility] tem Address [facility] [place]-[id number] [address] [place] [address] Care Team Providers Care Grain Farmer Name Role Phone Services, [facility] Primary Care Provider Encounter Details Date Type Department Care Team (Late st Contact Info) Description 04/08/2022 Telephone [facility] Management [facility] [address] [place] [phone] Patricia Clay RN Social History Tobacco Use [...] up with request for medical bra prescription. Supersonic Engineer spoke with Mohsen who states he is [...] documented as of this encounter Care Teams Grain Farmer Relationship Specialty Start Date End Date [facility], [address] [place], [place] PCP - General Family Medicine 10/05/23 documented as of this encounter
--- OUTSIDE RECORDS SUMMARY | 2024-09-28 08:34 | XMS_ITS | Encounter Summary ---
Author Organization [facility] Sys tem Address [facility] [place]-[id number] [address] [place] [address] Care Team Providers Care Piccolo Mechanic Name Role Phone Services, [facility] Primary Care Provider Encounter Details Date Type Department Care Team (Late st Contact Info) Description 06/02/2023 Orders Only [facility] [address] [place] [phone] Deepika Cox MD [address] [facility] [address] [place] [address] Social History Tobacco Use Types [...] documented as of this encounter Care Teams Piccolo Mechanic Relationship Specialty Start Date End Date Services, [facility] [address] [facility] [place] [place] PCP - General Family Medicine 10/05/23 documented as of this encounter
--- OUTSIDE RECORDS SUMMARY | 2024-09-28 08:34 | XMS_ITS | Encounter Summary ---
Author Organization [facility] Address [facility] [place]-[id number] [address] [place] [address] Care Team Providers Care Welding Process Engineer Name Role Phone Services, [facility] Primary Care Provider Reason for Visit * Reason Onset Date Comments Med Refill 03/08/2020 Encounter Details Date Type Department Care Team (Late st Contact Info) Description 03/08/2020 Refill [facility] [address] [place] [address] Amy Cerna LPN Social History Tobacco Use [...] documented as of this encounter Care Teams Welding Process Engineer Relationship Specialty Start Date End Date Services, [facility] [address] [place], [place] PCP - General Family Medicine 10/05/23 documented as of this encounter
--- OUTSIDE RECORDS SUMMARY | 2024-09-28 08:35 | XMS_ITS | Encounter Summary ---
Author Organization [facility] tem Address [facility] [place][id number] [address] [place] [address] Care Team Providers Care Pipe Fitter Maintenance Name Role Phone Services, [facility] Primary Care Provider Reason for Referral * Consultation (Routine) - Closed Specialty Diagnoses / Procedures Referred By Karla cuadra Referred To Contact Endocrinology, Diabetes & Metabolism Diagnoses 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, without long-term current use of insulin ([facility]) Zelalem Pathak MD Phone: tel: fax: Cleo Zambrano MD [address] [facility], [address] [address] Phone: tel: fax: Referral ID Status Reason Start Date Expiration Date V isits Requested Visits Authorized [id number] Closed Specialty Services Required 06/14/2020 06/14/2021 1 1 Encounter Details Date Type Department Care Team (Late st Contact Info) Description 06/14/2020 Orders Only [facility] [address] [place] [phone] Zelalem Pathak MD [address]. Provider retired 05/31/24 [place], [place] [id number] 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, without long-term current use of insulin ([facility]) (Primary Dx) Social History Tobacco Use [...] complication, without long-term current use of insulin ([facility]) 1 Occurrences starting 06/14/2020 until 12/14/2020 documented as of this encounter Visit Diagnoses Diagnosis 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, without long-term current use of insulin ([facility])- Primary documented in this encounter Additional Health Concerns Assessment Noted Time PHQ-9 Depression Total Score: 0 05/03/19 21 3:00 PM EST A Body Mass Index follow-up plan has been documented for the patient 02/10/2020 2:00 PM EST documented as of this encounter Care Teams Pipe Fitter Maintenance Relationship Specialty Start Date End Date Services, [facility] [address] [place], [place] PCP - General Family Medicine 10/05/23 documented as of this encounter
--- OUTSIDE RECORDS SUMMARY | 2024-09-28 08:35 | XMS_ITS | Encounter Summary ---
Author Organization [employer] [facility] tem Address [facility]-[id number] [address] [place] [address] Care Team Providers Care Security Sme Name Role Phone Services, [facility] Primary Care Provider Encounter Details Date Type Department Care Team (Late st Contact Info) Description 05/28/2020 Telephone [facility] [address] [place] [phone] Zelalem Pathak MD [address]. Provider retired 05/31/24 [place] [address] Social History Tobacco Use Types [...] documented as of this encounter Care Teams Security Sme Relationship Specialty Start Date End Date Services, [facility] [address] [place], [place] PCP - General Family Medicine 10/05/23 documented as of this encounter
--- OUTSIDE RECORDS SUMMARY | 2024-09-28 08:35 | XMS_ITS | Patient Health Record ---
Author Organization [facility] es Address [address] [address] Care Team Providers Care Big Data Engineer Name Role Phone Chinyere Calix Primary Care Provider [phone] Katharine Valdez Unavailable [phone] Allergies Allergen (clinical drug ingredient) Drug/Non Drug Allergy documented on EMR Reaction Allergy Type Onset Date Status citalopram Celexa Unknown Drug Allergy Active Keflex Unknown Drug Allergy Active Results Component Value Reference Range Notes HCG,Urine Reviewed date:08/21/2024 11:22:54 AM Interpretation: Performing Lab:, [facility], [place] Notes/Report: HCG Qualitative,Urine Negative Glucose Poct Glucometers Reviewed date:08/21/2024 11:22:47 AM Interpretation: Performing Lab:, [facility], [address] [place] [address] Notes/Report: Glucose Poc Glucometers 85 Random Glucose Reference Range is dependent on time and content of last meal. Glucose of more than 200 mg/dL in a nonstressed, ambulatory subject supports the diagnosis of Diabetes Mellitus. Glucose Poct Glucometers Reviewed date:08/21/2024 11:22:42 AM Interpretation: Performing Lab:, [facility], [address] [place] [address] Notes/Report: Glucose Poc Glucometers [...] at bedtime Orally Once a day Active Latuda 120 MG 1 tablet in the evening with food Orally Once a day; Duration: 30 days Active Victoza unknown dosage Activ e Vyvanse 70 MG 1 capsule in the morning Orally Once a day; Duration: 30 days DNF until 11/16/2024 09/21/2024 Active Docusate Sodium 100 MG 3 capsules Orally Once a day Active Vyvanse 70 MG 1 capsule in the morning Orally Once a day; Duration: 30 days DNF until 10/19/2024 09/21/2024 Active Vyvanse 70 MG 1 capsule in the morning Orally Once a day; Duration: 30 days 09/21/2024 Active Rosuvastatin Calcium 10 MG TAKE 1 TABLET BY MOUTH EVERY DAY Oral; Duration: 30 Active Actos 30 MG 1 tablet Orally Once a day Active FLUoxetine HCl 60 MG 1 tablet Orally Once a day; Duration: 30 days Active Cyclobenzaprine HCl unknown dosage Active LamISIL unknown dosage Activ e traZODone HCl 50 MG 1-2 tablet at bedtime as needed Orally daily; Duration: 30 days Active lamoTRIgine 200 MG 1 tablet Orally Once a day; Duration: 30 days Active Linzess 290 MCG 1 capsule at least 30 minutes before the first meal of the day on an empty stomach Orally Once a day Active Social History Tobacco Use: Social History [...] Status Risk Notes Problem Attention deficit hyperactivity disorder, combined type (13410976) ADHD (attention deficit hyperactivity disorder), combined type (F90.2) Active confirmed Problem Posttraumatic stress disorder (68805772) PTSD (post-traumatic stress disorder) (F43.10) Active confirmed Problem Mixed bipolar affective disorder, moderate (857725746) Bipolar 1 disorder, mixed, moderate (F31.62) Active confirmed Vital Signs Heart Rate 90 /min 12/28/2023 Temperature 98.6 degrees Fahrenheit 12/28/2023 Oximetry 97 % 12/28/2023 Height 63 in 03/28/2024 Weight 220 lbs 03/28/2024 BMI 38.97 kg/m2 03/28/2024 Encounters Encounter Location Date Provider Diagnosis [facility] [address] [place] [address] 11/28/2023 Chinyere Calix ADHD (attention deficit hyperactivity disorder), combined type F90.2 [facility] [address] [place] [address] 01/14/2024 [place] [address] [place] [address] 02/10/2024 [place] [address] [place] [address] 03/07/2024 [facility] [address] [place] [address] 03/30/2024 [address] [address] [place] [address] 06/13/2024 [place] [address] [place] [address] 06/22/2024 [address] [address] [place] [address] 07/19/2024 Katharine [place]dez [place] [address] [place] [address] 08/16/2024 Chinyere Calix Bipolar 1 disorder, mixed, moderate F31.62 [facility] [address] [place] [address] 08/16/2024 Chinyere Calix Bipolar 1 disorder, mixed, moderate F31.62 [facility] [address] [place] [address] 12/28/2023 Chinyere Calix Bipolar 1 disorder, mixed, moderate F31.62 ; ADHD (attention deficit hyperactivity disorder), combined type F90.2 and PTSD (post-traumatic stress disorder) F43.10 [facility] [address] [place] [address] 06/13/2024 Chinyere Calix Bipolar 1 disorder, mixed, moderate F31.62 ; ADHD (attention deficit hyperactivity disorder), combined type F90.2 and PTSD (post-traumatic stress disorder) F43.10 [facility] [employer] [address] [place] [address] 09/20/2024 Chinyere Calix Bipolar 1 disorder, mixed, moderate F31.62 ; ADHD (attention deficit hyperactivity disorder), combined type F90.2 and PTSD (post-traumatic stress disorder) F43.10 [facility] [address] [place] [address] 03/28/2024 Chinyere Calix Bipolar 1 disorder, mixed, [...] increasing protein as appropriate. Discussed referral to business support administrator if problem persists. . . Continue current [...] increasing protein as appropriate. Discussed referral to business support administrator if problem persists. . . Continue current [...] 1 disorder, mixed, moderate (ICD-10 - F31.62) 03/28/2024 Bipolar 1 disorder, mixed, moderate (ICD-10 [...] increasing protein as appropriate. Discussed referral to business support administrator if problem persists. . . Continue current [...] intent or plan in session. . 09/20/2024 Bipolar 1 disorder, mixed, moderate (ICD-10 [...] increasing protein as appropriate. Discussed referral to business support administrator if problem persists. . . Continue current [...] irritability, headache, or decreased appetite. . 09/20/2024 ADHD (attention deficit hyperactivity disorder), [...] PTSD (post-traumatic stress disorder) (ICD-10 - F43.10) 09/20/2024 PTSD (post-traumatic stress disorder) (ICD-10 - F43.10) 06/13/2024 PTSD (post-traumatic stress disorder) (ICD-10 - F43.10) 12/28/2023 Other Body Mass Index : Care Instructions material was published Plan Of Treatment Next Appt Details Provider Name:Chinyere Churchill Calix, 01/02/2025 04:30:00 PM, [address], [place], [address], Provider Name:Chinyere Churchill Yogi, 03/27/2025 03:30:00 PM, [address], [place], [address], Insurance Providers Payer Name Payer Address Payer Phone Subscriber Number Group Number Insured Name Patient Relationship to Insured Coverage Start Date Coverage End Date [employer] [place] [employer] [address] [place] [address] [id number] [employer], PEE Self - patient is the insured 3 [facility] [place] [address] [place] [address] [id number] [employer], PEE Self - patient is the insured 3 [facility] ed 22. [address] [place] [address] [id number] [employer], PEE Self - patient is the insured [address] [facility] [employer]E-ter med 22 [address] [place] [address] [id number] [employer], PEE Self - patient is the insured 1 3 [employer] MEDICAID [employer] after [employer]UCKEYE-ter med 22 [address] [place] [address] [phone] [id number] [employer], PEE Self - patient is the insured 1 3 Medical (General) History Medical History History ICD Code bipolar PTSD ADHD Surgical History Surgery Date(Month/Year) nasal surgery leg surgery back surgery ankle surgery Hospitalization History Reason Date(Month/Year) Rotator cuff surgery 05/15/22
--- OUTSIDE RECORDS SUMMARY | 2024-09-28 08:35 | XMS_ITS | Clinical Summary ---
Author Organization [facility] Address [address] [place] [address] Care Team Providers Care Waterside Worker Name Role Phone Unavailable Primary Care Provider [...] mcg/actuation nasal sprayIndication s:Globus sensation Use 1 [place] in each nostril as needed. Active PYRIDOXINE [...] Cervical Cancer Screening 2001 Mammogram Screening 2020 Influenza Vaccine (#1) 2024
--- OUTSIDE RECORDS SUMMARY | 2024-09-28 08:35 | XMS_ITS | Encounter Summary ---
Author Organization [facility] Address [address] [facility] [place] [address] Care Team Providers Care Coil Cleaner Name Role Phone Zully Key SULFURIC ACID PLANT OPERATOR Unavailable Shawna Dudley DO Primary Care Provider [phone] Sasha Santos DO Unavailable [phone] Mendez Ortiz DO Unavailable [phone] Encounter Details Date Type Department Care Team (Late Contact Info) Description 09/21/2024 External Result Encounter [facility] External Department Unsolicited Mendez Ortiz DO [address] [place] [address] Social History Tobacco Use Types Packs/Day Years [...] Upcoming Encounters Date Type Department Care Team ([facility] Contact Info) Description 09/29/2024 10:15 AM EDT Office Visit [facility] [address] [place] [address] Mendez Ortiz DO [address] [place] [address] 12/01/2024 11:00 AM EDT Office Visit [facility] [address] [place] [address] Cleo Zambrano MD [address] [place] [address] 05/31/2025 1:00 PM EDT Office Visit [facility] [place] [facility] [address] [place] [address] Roel Garber DO [address] [place] [address] 08/18/2025 2:00 PM EDT Office Visit [facility] [address] [place] [address] Mendez Ortiz DO [address] [place] [address] documented as of this encounter Procedures Procedure Name Priority Date/Time Associated Diagnosis Comments GLUCOSE POCT GLUCOMETERS Routine 09/21/2024 11:00 AM EDT documented in this encounter Results * GLUCOSE POCT GLUCOMETERS (09/21/2024 11:00 AM EDT) [facility] GLUCOSE POC GLUCOMETERS 89 mg/dL 09/21/2024 11:07 AM EDT [facility] Comment: Random Glucose Reference Range is dependent on time and content of last meal. Glucose of more than 200 mg/dL in a nonstressed, ambulatory subject supports the diagnosis of Diabetes Mellitus. COMMEMT1 Glu2: Cleaned Meter 09/21/2024 11:07 AM EDT [facility] Blood (Blood) 09/21/2024 11: 00 AM EDT 09/21/2024 11:07 AM EDT us Mendez Ortiz DO LAB BLOOD ORDERABLES Final Result [facility] [address] [place] [address], documented in this encounter Visit Diagnoses Not on filedocumented in this encounter Care Teams Coil Cleaner Relationship Specialty Start Date End Date Shawna Dudley DO [address] [place] [address] PCP - General Family Medicine 04/14/22 Key Andrea NP [address] [place] [address] Referring Physician Family Medicine 08/13/23 Sasha Santos DO [address] [place] [address] Referring Physician Neurology 05/10/24 Mendez Ortiz DO [address] [place] [address] Otolaryngology 08/19/24 documented as of this encounter
--- OUTSIDE RECORDS SUMMARY | 2024-09-28 08:35 | XMS_ITS | Clinical Summary ---
Author Organization [facility] Address [address] [place] [address] Care Team Providers Care Stationary Engineer Name Role Phone Fredis Loreto Primary Care [...] Type Department Care Team Description 09/15/2024 Telephone [facility] [address] [place] [address] Peyton Bloom MA 08/03/2024 Orders Only [facility] [address] [place] [address] Kay Carrillo CNP Other chest pain (Primary Dx) 07/29/2024 Telephone [facility] [address] [place] [address] Peyton Bloom MA 07/26/2024 Abstract [facility] [address] [place] [address] Erendira Tom PA-C 07/08/2024 Abstract [facility] [address] [place] [address] Erendira Tom PA-C from Last 3 Months Social History Tobacco [...] on patient's age to complete this topic Insurance [facility] MEDICAID Care Teams Stationary Engineer Relationship Specialty Start Date End Date Loreto Mcenal [address] PCP - General 03/30/24
--- OUTSIDE RECORDS SUMMARY | 2024-09-28 08:35 | XMS_ITS | Encounter Summary ---
Author Organization [facility] [employer] Address [id number] [address] [place] [address] Care Team Providers Care Engineering Inspection Assistant Name Role Phone Services, [facility] Primary Care Provider Reason for Visit * Reason Comments Med Refill Encounter Details Date Type Department Care Team (Late st Contact Info) Description 06/19/2020 Refill [facility] [address] [place] [phone] Zelalem Pathak MD [address]. Provider retired 05/31/24 [place], [place] [id number] Social History Tobacco Use Types Packs/Day Years [...] documented as of this encounter Care Teams Engineering Inspection Assistant Relationship Specialty Start Date End Date [facility], [facility] [address] [place], [place] PCP - General Family Medicine 10/05/23 documented as of this encounter
--- OUTSIDE RECORDS SUMMARY | 2024-09-28 08:35 | XMS_ITS | Encounter Summary ---
Author Organization [facility] tem Address [id number] [address] [place] [address] Care Team Providers Care Property Disposal Officer Name Role Phone Services, [facility] Primary Care Provider Reason for Visit * Reason Comments Med Refill Encounter Details Date Type Department Care Team (Late st Contact Info) Description 12/04/2021 Refill [facility] [address] [place] [address] Gil Alba, PA [address] [facility], 2nd Floor [place], [place] [address] Social History Tobacco Use Types Packs/Day Years [...] requests. The patient must contact our office. [phone] documented in this encounter Plan of Treatment Not on file documented as of this encounter Visit Diagnoses Not on filedocumented in this encounter Additional Health Concerns Assessment Noted Time PHQ-9 Depression Total Score: 0 05/03/19 21 3:00 PM EST A Body Mass Index follow-up plan has been documented for the patient 02/10/2020 2:00 PM EST documented as of this encounter Care Teams Property Disposal Officer Relationship Specialty Start Date End Date Services, [facility] [address] [place], [place] PCP - General Family Medicine 10/05/23 documented as of this encounter
--- OUTSIDE RECORDS SUMMARY | 2024-09-28 08:35 | XMS_ITS | Encounter Summary ---
Author Organization [facility] Address [id number] [address] 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
--- OUTSIDE RECORDS SUMMARY | 2024-09-28 08:35 | XMS_ITS | Encounter Summary ---
Author Organization [facility] Address [address] [facility], [address] [place] [address] Care Team Providers Care Seating Upholsterer Name Role Phone Loreto Mcneal APRN - JO ANN Primary Care Prov ider Encounter Details Date Type Department Care Team (Late Contact Info) Description 01/12/2024 Orders Only [facility] [address] [place] [address] Provider, MD Ana Social History Tobacco [...] Description 11/10/2024 11:30 AM EDT Office Visit [facility] [place] [address] Karen Cotter, TOOL CARRIER - SENIOR RESEARCH ENGINEER [address] [facility] [address] [place] [address] 1 year KUB documented as of this [...] on filedocumented in this encounter Care Teams Seating Upholsterer Relationship Specialty Start Date End Date Loreto Mcneal APRN - TOOL AND DIE MAKER [employer]EV[employer]IVE [address] [place] [address] PCP - General 11/11/23 documented as of this encounter
--- OUTSIDE RECORDS SUMMARY | 2024-09-28 08:35 | XMS_ITS | Clinical Summary ---
Author Organization [employer] [facility] tem Address [id number] [address] [place] [address] Care Team Providers Care Complaint Investigations Officer Name Role Phone Services, [facility] Primary Care Provider Allergies Active Allergy Reactions Criticality Noted Date Comments Citalopram 09/15/2016 Cephalexin 09/15/2016 Metformin High 04/15/2022 Severe hypoglycemia Poison Devorah Extract 04/15/2022 Medications nrvohykr-tclp-OZ-c alcium &mins (THERAGRAN-M) 9 mg iron-400 mcg tablet Take 1 tablet by mouth in the morning. Active blood-glucose meter (TRUE METRIX GLUCOSE METER) [facility] use to test BLOOD SUGAR TWICE DAILY [...] stripIndications:T ype 2 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s ([facility]) Use to test BLOOD SUGAR TWICE DAILY [...] (10/11/2018): Added automatically from request for surgery [id number] Lumbosacral spondylosis without myelopathy 07/22 Overview (07/22/2018): Added automatically from request for surgery [id number] PTSD (post-traumatic stress disorder) 06/16/2018 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 Cervical disc displacement 09/21/2017 Postoperative abscess 09/28/2016 Acute cholecystitis 09/15/2016 Diverticulitis Encounters Date Type Department Care Team Description 09/06/2024 [facility]phone [facility] [address] [facility] [address] [place] [address] Dwayne Khoury MD 08/18/2024 12:30 PM EDT - 08/18/2024 1:30 PM EDT Surgery [address] [address] Chepe Ingram MD REPAIR SCAPHOLUNATE [[id number] (CPT )] 08/18/2024 12:15 PM EDT Anesthesia Event [address] [address] Akira Willett MD 08/18/2024 10:32 AM EDT - 08/18/2024 3:18 PM EDT Hospital Encounter [address] [address] Chepe Ingram MD Scapholunate dissociation of left [...] 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 Not [...] history exists Medical Devices Implanted Type Area Ring Attacher Device Identifier Shelf Expiration Date Model / Serial / Lot [place] Sut 5.5mm 2 Ft Crkscr Fbrwr Shldr 3 Pk 14.7mm Strl Ea=Bill-Only Rpl [id number] - [id number] Implanted:Qty: 1 on 05/15/2022 by Chepe Ingram MD at [facility] [place] Right: Shoulder Arthrex 05/30/2026 AR-1927 PSF-3 / / [id number] Arthreximplant System, Hand/Wrist Internal Brace Ligament Augmentation Repair Implanted:Qty: 1 on 08/18/2024 by Chepe Ingram MD at [facility] Orthopedic Implant Right: Wrist Arthrex [id number] 04/01/2029 AR-8978 -CP / / [id number] Arthrex Dx Swivelock Sl, With Forked Eyelet, 3.5 X 8.5mm Implanted:Qty: 1 on 08/18/2024 by Chepe Ingram MD at [facility] Orthopedic Implant Right: Wrist Arthrex [id number] 01/30/2028 AR-8978 P / / [id number] Arthrex Dx Swivelock Sl, With Forked Eyelet, 3.5 X 8.5mm Implanted:Qty: 1 on 08/18/2024 by Chepe Ingram MD at [facility] Orthopedic Implant Right: Wrist Arthrex [id number] 12/30/2024 AR-8978 P / / [id number] 0.062 9inch Yasmine Pin Implanted:Qty: 1 on 08/18/2024 by Chepe Ingram MD at [facility] Pin Right: Wrist Akimbi System[employer]er [employer] [id number] / / Explanted Type Area Ring Attacher Device Identifier Shelf Expiration Date Model / Serial / Lot 9 Inch 0.062 Yasmine Pin Explanted:Qty: 1 on 08/18/2024 by Chepe Ingram MD at [facility] Pin Right: Wrist Celestine [employer] Roseanne [id number] / / Procedures Procedure Name Priority Date/Time Associated Diagnosis Comments BEDSIDE GLUCOSE Routine 08/18/2024 2:22 PM EDT XR WRIST RT MIN 3 VWS Routine 08/18/2024 2:11 PM EDT ANESTHESIA INTUBATION Routine 08/18/2024 12:30 PM EDT GA TRANSECT OTHR SPINAL N,XTRADURAL 08/18/2024 12:15 PM EDT Pre-procedural laboratory examination, Extensor tenosynovitis of finger, Traumatic rupture of other ligament of right wrist initial encounter, Colles' fracture of right radius initial encounter for closed fracture Case Notes 1030 Special Needs ARTHREX INTERNAL BRACEC-ARM GA EXCIS SYNOV WRIST,EXTENS TENDON 08/18/2024 12:15 PM EDT Pre-procedural laboratory examination, Extensor tenosynovitis of finger, Traumatic rupture of other ligament of right wrist initial encounter, Colles' fracture of right radius initial encounter for closed fracture Case Notes 1030 Special Needs ARTHREX INTERNAL BRACEC-ARM GA REVISE WRIST JOINT,CARPAL INSTABIL 08/18/2024 12:15 PM EDT Pre-procedural laboratory examination, Extensor tenosynovitis of finger, Traumatic rupture of other ligament of right wrist initial encounter, Colles' fracture of right radius initial encounter for closed fracture Case Notes 1030 Special Needs ARTHREX INTERNAL BRACEC-ARM CHG SONO GUIDE NEEDLE BIOPSY Routine 08/18/2024 11:47 AM EDT GA INJECTION AA&/STRD BRACHIAL PLEXUS W/IMG GDN Routine [...] - 99 mg/dL 08/18/2024 2:28 PM EDT [facility] Blood specimen (specimen) 08/18/2024 2:22 PM EDT 08/18/2024 2:28 PM EDT Chepe Ingram MD POINT OF CARE TEST ORDERAB LES Final Result [address] [address], [place] * X-ray wrist right minimum 3 [...] DIAGNOSTIC IMAGING ORD ERABLES Final Result * GA AN ELECTIVE SUPRAGLOTTIC AIRWAY (08/18/2024 12:30 PM [...] Final R esult * PM PERIPHERAL BLOCK, GA INJECTION AA&/STRD BRACHIAL PLEXUS W/IMG GDN, CHG [...] Chlorhexidine and Patient Draped Monitoring: Heart Rate, Edge Cutting Machine Operator, Continuous Pulse Ox and Blood Pressure Oxygen [...] Negative Negative, Indeterminate 08/18/2024 12:19 PM EDT [facility] Urine 08/18/2024 10:4 7 AM EDT 08/18/2024 12:19 PM EDT us Chepe Ingram MD POINT OF CARE TEST ORDERAB LES Final Result Performing Organization Address City/[facility]/ZIP Co de Phone Number [address] [address], * Ambulatory referral to Podiatry (01/03/2019) 01/03/2019 us Zelalem Pathak MD OUTPATIENT REFERRAL ORDERABL ES Final Result MANUALLY TRANSCRIBED RESULTS from Last 3 Months or Most Recently Relevant to Health Maintenance Insurance [place] Advance Directives * Full Code (Latest Code Status on File) Date Activated Date Inactivated Comments 09/16/2016 3:19 PM 09/17/2016 8:38 PM Care Teams Complaint Investigations Officer Relationship Specialty Start Date End Date Services, [facility] [address] [place] PCP - General Family Medicine 10/05/23
--- OUTSIDE RECORDS SUMMARY | 2024-09-28 08:36 | XMS_ITS | Encounter Summary ---
Author Organization [facility] [employer] Address [id number] [address] [place] [address] Care Team Providers Care Mule Operator Name Role Phone Services, [facility] Primary Care Provider Reason for Visit * Reason Comments Med Refill Encounter Details Date Type Department Care Team (Late st Contact Info) Description 06/11/2017 Refill [facility] [address] [place] [address] [place] [address] Francia High, STATION CAPTAIN-LAB ANALYST [address] [place], [place] [id number] Social History Tobacco Use Types Packs/Day Years [...] documented as of this encounter Care Teams Mule Operator Relationship Specialty Start Date End Date Services, [place] [address] [place] [address] [place], [place] PCP - General Family Medicine 10/05/23 documented as of this encounter
--- OUTSIDE RECORDS SUMMARY | 2024-09-28 08:36 | XMS_ITS | Encounter Summary ---
Author Organization [facility] Address [address] [place] [address] Care Team Providers Care Mine Superintendent Name Role Phone Key Andrea ARCHITECTURE INTERN Unavailable Shawna Dudley DO Primary Care Provider [phone] Sasha Santos DO Unavailable [phone] Mendez Ortiz DO Unavailable [phone] Reason for Visit * Reason Comments Med Refill Encounter Details Date Type Department Care Team (Late st Contact Info) Description 09/15/2024 Refill [facility] [address] [place] [phone] Cleo Zambrano MD [address] [place] [address] 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, unspecified whether termite control representative insulin use (HCC) Social History Tobacco Use [...] Office Visit [facility] [address] [place] [address] Mendez Ortiz DO [address] [place] [address] 12/01/2024 11:00 AM EDT Office Visit [facility] [address] [place] [address] Cleo Zambrano MD [address] [place] [address] 05/31/2025 1:00 PM EDT Office Visit [facility] BONILLA [address] [place] [address] Roel Garber DO [address] [facility] [place] [address] 08/18/2025 2:00 PM EDT Office Visit [facility] [address] [place] [address] Mendez Ortiz DO [address] [place] [address] documented as of this encounter Visit Diagnoses Diagnosis 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, unspecified whether termite control representative insulin use (HCC) documented in this encounter Care Teams Mine Superintendent Relationship Specialty Start Date End Date Shawna Dudley DO [address] [place] [address] PCP - General Family Medicine 04/14/22 Key Andrea NP [address] [place] [address] Referring Physician Family Medicine 08/13/23 Sasha Santos DO [address] [place] [address] Referring Physician Neurology 05/10/24 Mendez Ortiz DO [address] [place] [address] Otolaryngology 08/19/24 documented as of this encounter
--- OUTSIDE RECORDS SUMMARY | 2024-09-28 08:36 | XMS_ITS | Encounter Summary ---
Author Organization [place] [employer] Address [id number] [address] [place] [address] Care Team Providers Care Hydrodynamics Teacher Name Role Phone Services, [facility] Primary Care Provider Reason for Visit * Reason Comments Med Refill Encounter Details Date Type Department Care Team (Late st Contact Info) Description 01/23/2019 Refill [facility] [address] [place] [phone] Zelalem Pathak MD [address] Provider retired 05/31/24 [place], [place] [phone] Social History Tobacco Use Types Packs/Day Years [...] documented as of this encounter Care Teams Hydrodynamics Teacher Relationship Specialty Start Date End Date Services, [facility] [address] [place], [place] PCP - General Family Medicine 10/05/23 documented as of this encounter
--- OUTSIDE RECORDS SUMMARY | 2024-09-28 08:36 | XMS_ITS | Encounter Summary ---
Author Organization [facility] Address [address] [facility] [place] [address] Care Team Providers Care Fitness Coach Name Role Phone Zully Key WOOD FENCE ERECTOR Unavailable Shawna Dudley DO Primary Care Provider [phone] Sasha Santos DO Unavailable [phone] Mendez Ortiz DO Unavailable [phone] Encounter Details Date Type Department Care Team (Late Contact Info) Description 08/10/2024 External Result Encounter [facility] External Department Unsolicited Mendez Ortiz DO [address] [place] [address] Social History Tobacco Use Types Packs/Day Years [...] Team ([facility] Contact Info) Description 09/29/2024 10:15 AM EDT Office Visit [facility] [address] [place] [address] Mendez Ortiz DO [address] [place] [address] 12/01/2024 11:00 AM EDT Office Visit [facility] [address] [place] [address] Cleo Zambrano MD [address] [place] [address] 05/31/2025 1:00 PM EDT Office Visit [facility] [place] [facility] [address] [facility] [place] [phone] Roel Garber DO [address] [facility] [place] [address] 08/18/2025 2:00 PM EDT Office Visit [facility] [address] [place] [address] Mendez Ortiz DO [address] [place] [address] documented as of this encounter Procedures Procedure [...] Jr., D.O. 08/10/2024 10:43 AM Dictation Location: [facility]-22 Transcribed By: CALVIN 08/10/24 1043 Dictated By: Alin Ornelas Jr, DO 08/10/24 1042 Signed By: <Electronically signed by Alin Ornelas Jr, in OV> 08/10/24 1043 Narrative 08/10/2024 10:45 AM EDT [address] [address] XRay Report Signed Patient: Karma Candelaria MR#: [id number] : 1980 Acct:[id number] Age/Sex: 43 / F ADM Date: 08/10/24 Loc: [place] Room: Type: [facility] Attending Dr: Mendez Ortiz DO Copies to: [...] Note Alin Ornelas Jr., DO - 09/08/[address] [address] XRay Report Signed Patient: Karma Candelaria AMR#: [id number] : 1980Acct:[id number] Age/Sex: 43 / FADM Date: 08/10/24 Loc: [place] Room:Type: [facility] Attending Dr: Mendez Ortiz DO Copies to: [...] Jr., D.O. 08/10/2024 10:43 AM Dictation Location: [place] [address] Transcribed By: [facility] 08/10/24 1043 Dictated By: Alin Ornelas Jr, DO 08/10/24 1042 Signed By: <Electronically signed by Alin Ornelas Jr, DO inOV> 08/10/24 1043 Mendez Ortiz DO IMG XR PROCEDURES Edited Re sult - Final documented in this encounter Visit Diagnoses Not on filedocumented in this encounter Care Teams Fitness Coach Relationship Specialty Start Date End Date Shawna Dudley DO [address] [place] [address] PCP - General Family Medicine 04/14/22 Key Andrea NP [address] [place] [address] Referring Physician Family Medicine 08/13/23 Sasha Santos DO [address] [place] [address] Referring Physician Neurology 05/10/24 Mendez Ortiz DO [address] [place] [address] Otolaryngology 08/19/24 documented as of this encounter
--- OUTSIDE RECORDS SUMMARY | 2024-09-28 08:36 | XMS_ITS | Encounter Summary ---
Author Organization [facility] Address [address] [facility] [place] [address] Care Team Providers Care Senior Chemical Engineer Name Role Phone Key Andrea SENIOR DATABASE ENGINEER Unavailable Shawna Dudley DO Primary Care Provider [phone] Sasha Santos DO Unavailable [phone] Mendez Ortiz DO Unavailable [phone] Encounter Details Date Type Department Care Team (Late Contact Info) Description 06/27/2024 Abstract [facility] [place] [facility] [address] [facility] [address] Roel Garber DO [address] [facility] [address] [place], [place] [phone] Social History Tobacco Use Types Packs/Day Years [...] Upcoming Encounters Date Type Department Care Team ([facility] Contact Info) Description 09/29/2024 10:15 AM EDT Office Visit [facility] [address] [place] [address] Mendez Ortiz DO [address] [place] [address] 12/01/2024 11:00 AM EDT Office Visit [facility] [address] [place] [address] Cleo Zambrano MD [address] [place] [address] 05/31/2025 1:00 PM EDT Office Visit NATALIIA BONILLA [address] [facility] [place] [address] Roel Garber DO [address] [facility] [place] [address] 08/18/2025 2:00 PM EDT Office Visit [facility] [address] [place] [address] Mendez Ortiz DO [address] [place] [address] documented as of this encounter Visit Diagnoses Not on filedocumented in this encounter Care Teams Senior Chemical Engineer Relationship Specialty Start Date End Date Shawna Dudley DO [address] [place] [address] PCP - General Family Medicine 04/14/22 Key Andrea NP [address] [place] [address] Referring Physician Family Medicine 08/13/23 Sasha Sanots DO [address] [place] [address] Referring Physician Neurology 05/10/24 Mendez Ortiz DO [address] [place] [address] Otolaryngology 08/19/24 documented as of this encounter
--- OUTSIDE RECORDS SUMMARY | 2024-09-28 08:36 | XMS_ITS | Encounter Summary ---
Author Organization [employer] Address [facility]-[id number] [address] [place] [address] Care Team Providers Care Belt Dresser Name Role Phone Services, [facility] Primary Care Provider Encounter Details Date Type Department Care Team (Late st Contact Info) Description 10/30/2017 Telephone [facility] [address] [place] [address] Amy Cerna LPN Social History [...] as of this encounter Care Teams Belt Dresser Relationship Specialty Start Date End Date Services, [facility] [address] [place], [place] PCP - General Family Medicine 10/05/23 documented as of this encounter
--- OUTSIDE RECORDS SUMMARY | 2024-09-28 08:36 | XMS_ITS | Encounter Summary ---
Author Organization [facility] Address [address] [place] [facility] [place] [address] Care Team Providers Care Mold Changer Name Role Phone Key Andrea PETAL SHAPER HAND Unavailable Shawna Dudley DO Primary Care Provider [phone] Sasha Sanots DO Unavailable [phone] Mendez Ortiz DO Unavailable [phone] Encounter Details Date Type Department Care Team (Latest Contact Info) Description 09/20/2024 Travel Social History Tobacco Use Types Packs/Day [...] Visit [facility] [address] [place] [address] Mendez Ortiz DO [address] [place] [address] 12/01/2024 11:00 AM EDT Office Visit [facility] [address] [place] [address] Cleo Zambrano MD [address] [place] [address] 05/31/2025 1:00 PM EDT Office Visit NATALIIA BONILLA [address] [facility] [place] [address] Roel Garber DO [address] [facility] [place] [address] 08/18/2025 2:00 PM EDT Office Visit [facility] [address] [place] [address] Mendez Ortiz DO [address] [place] [address] documented as of this encounter Visit Diagnoses Not on filedocumented in this encounter Care Teams Mold Changer Relationship Specialty Start Date End Date Shawna Dudley DO [address] [place], [place] [phone] PCP - General Family Medicine 04/14/22 Key Andrea NP [address] [place] [address] Referring Physician Family Medicine 08/13/23 Sasha Santos DO [address] [place] [address] Referring Physician Neurology 05/10/24 Mendez Ortiz DO [address] [place] [address] Otolaryngology 08/19/24 documented as of this encounter
--- OUTSIDE RECORDS SUMMARY | 2024-09-28 08:36 | XMS_ITS | Encounter Summary ---
Author Organization [facility] Address [address] [place] [address] Care Team Providers Care Supply Chain Assistant Name Role Phone Key Andrea VIDEO SYSTEM REPAIRER Unavailable Shawna Dudley DO Primary Care Provider [phone] Sasha Santos DO Unavailable [phone] Mendez Ortiz DO Unavailable Encounter Details Date Type Department Care Team (Late Contact Info) Description 09/20/2024 Bamboo flowsheet [facility] [address] [place] [address] Mendez Ortiz DO [address] [place] [address] Social History Tobacco Use Types Packs/Day [...] Upcoming Encounters Date Type Department Care Team ([facility] Contact Info) Description 09/29/2024 10:15 AM EDT Office Visit [facility] [address] [place] [address] Mendez Ortiz DO [address] [place] [address] 12/01/2024 11:00 AM EDT Office Visit [facility] [address] [place] [address] Cleo Zambrano MD [address] [place] [address] 05/31/2025 1:00 PM EDT Office Visit NATALIIA BONILLA [address] [facility] [place] [address] Roel Garber DO [address] [facility] [place] [address] 08/18/2025 2:00 PM EDT Office Visit [facility] [address] [place] [address] Mendez Ortiz DO [address] [place] [address] documented as of this encounter Visit Diagnoses Not on filedocumented in this encounter Care Teams Supply Chain Assistant Relationship Specialty Start Date End Date Shawna Dudley DO [address] [place] [address] PCP - General Family Medicine 04/14/22 Key Andrea NP [address] [place] [address] Referring Physician Family Medicine 08/13/23 Sasha Santos DO [address] [place] [address] Referring Physician Neurology 05/10/24 Mendze Ortiz DO [address] [place] [address] Otolaryngology 08/19/24 documented as of this encounter
--- OUTSIDE RECORDS SUMMARY | 2024-09-28 08:36 | XMS_ITS | Clinical Summary ---
Author Organization [facility] Address [address] [place] [address] Care Team Providers Care Tobacco Stripper Hand Name Role Phone Key Andrea THEATRICAL RIGGER Unavailable Shawna Dudley DO Primary Care Provider [phone] Sasha Santos DO Unavailable [phone] Mendez Ortiz DO Unavailable [phone] Allergies Active Allergy Reactions Criticality Noted Date [...] 2 diabetes mellitus without complication, unspecified whether detention insulin use (HCC) Take 1 tablet (25 mg) by mouth Daily 30 tablet 2 025 2024 Active pioglitazone (Actos) 30 MG tabletIndication s: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, unspecified whether watermelon inspector insulin use (HCC) Take 1 tablet (30 mg) by mouth Daily 30 tablet 3 025 Active Tirzepatide (Mounjaro) 5 MG/0.5ML solution auto-injectorInd ications: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, unspecified whether watermelon inspector insulin use (HCC) Inject 5 mg under the skin every 7 (seven) days 6 mL 1 025 2024 Active Mounjaro 2.5 MG/0.5ML solution auto-injectorInd ications: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, unspecified whether watermelon inspector insulin use (HCC) INJECT 2.5 MG SUBCUTANEOUSLY (UNDER THE SKIN) EVERY 7 DAYS 2 mL 3 025 Active Tirzepatide (Mounjaro) 2.5 MG/0.5ML solution auto-injectorInd ications: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, unspecified whether watermelon inspector insulin use (HCC) Inject 2.5 mg under [...] (03/10/2023): Added automatically from request for surgery [id number] Lumbosacral spondylosis without myelopathy 07/22 Overview (03/10/2023): Added automatically from request for surgery [id number] PTSD (post-traumatic stress disorder) 06/16/2018 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 Cervical disc displacement 09/21/2017 Acute cholecystitis 09/15/2016 Resolved Problems Problem Noted Date Diagnosed Date Resolved Date Elevated liver function tests 08/17/2024 08/17/2024 Fatty liver 08/17/2024 08/17/2024 History of kidney stones 08/17/2024 Constipation 08/17/2024 08/17/2024 Irritable bowel syndrome with constipation 08/17/2024 08/17/2024 Musculoskeletal chest pain 08/17/2024 0 08/17/2024 Other chronic pain 08/17/2024 5 Postoperative pain 08/17/2024 5 Reactive hypoglycemia 08/17/20242024 [...] Encounters Date Type Department Care Team Description 09/21/2024 12:00 PM EDT Procedure Visit [facility] Mendez Ortiz DO Obstructive sleep apnea (Primary Dx) 09/21/2024 External Result Encounter [facility] External Department Unsolicited Mendez Ortiz DO 09/20/2024 1:00 PM EDT Office Visit [facility] [address] [place] [address] Mendez Ortiz DO Obstructive sleep apnea (Primary Dx); Class 3 severe obesity with serious comorbidity and body mass index (BMI) of 40.0 to 44.9 in adult, unspecified obesity type (CMS-HCC); Breakdown (mechanical) of implanted electronic neurostimulator, generator, sequela 09/20/2024 Bamboo flowsheet [facility] [address] [place] [phone] Mendez Ortiz, 09/20/2024 Travel 09/15/2024 Refill [facility] [address] [place] [address] Cleo Zambrano MD 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, unspecified whether watermelon inspector insulin use (HCC) 09/01/2024 10:45 AM EDT Office [facility] [address] [place] [address] Mendez Ortiz, Obstructive sleep apnea (Primary Dx) 09/01/2024 Bamboo flowsheet [facility] [address] [place] [address] Mendez Ortiz, 09/01/2024 Travel 08/19/2024 1:15 PM EDT Office Visit [facility] [address] [place] [address] Mendez Ortiz, Obstructive sleep apnea (Primary Dx); Intolerance of continuous positive airway pressure (CPAP) ventilation 08/19/2024 Bamboo flowsheet [facility] [address] [place] [address] Mendez Ortiz, 08/19/2024 Travel 08/10/2024 8:00 AM [...] 08/04/2024 10:30 AM EDT Office Visit [facility] [address] [place] [address] Cleo Zambrano MD 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, unspecified whether detention insulin use (HCC) (Primary Dx); Vitamin D deficiency; Weight gain; Encounter for dietary consultation; Hyperlipemia, mixed ; Class 3 severe obesity due to excess calories without serious comorbidity with body mass index (BMI) of 40.0 to 44.9 in adult ([facility]-H[facility]) 08/04/2024 Bamboo flowsheet [facility] [address] [place] [address] Cleo Zambrano MD 08/02/2024 8:30 AM EDT [facility] [address] [facility] [facility] [address] [address] Roel Garber, DO Itching with irritation; Nexplanon removal 08/02/2024 Bamboo flowsheet [facility] [address] [facility] [place] [address] Roel Garber DO 07/20/2024 Telephone [facility] [address] [place] [address] Cleo Zambrano MD Advice Only 06/30/2024 9:40 AM EDT Procedure Visit [facility] [address] [facility] [place] [address] Roel Garber, DO Nexplanon removal 06/30/2024 Telephone [facility] [address] [place] [address] [place] [address] Bela Ribeiro LPN from Last 3 Months Immunizations Immunization Administration [...] Mass Index 40.74 09/20/2024 1:04 PM EDT Plan of Treatment Upcoming Encounters Date Type Department Care Team (Late st Contact Info) Description 09/29/2024 10:15 AM EDT Office Visit [facility] [address] [place] [address] Mendez Ortiz DO [address] [place] [address] 12/01/2024 11:00 AM EDT Office Visit [facility] [address] [place] [address] Cleo Zambrano MD [address] [place] [address] 05/31/2025 1:00 PM EDT Office Visit [facility] [place] [facility] [address] [facility] [place] [address] Roel Garber DO [address] [facility] [place] [address] 08/18/2025 2:00 PM EDT Office Visit [facility] [address] [place] [address] Mendez Ortiz DO [address] [place] [address] Health Maintenance Due Date Last Done Comments Influenza Vaccine (#1) 2024 , 12/22/2022, 12/23/2021, Additional history exists Mammogram 05/27/2025 05/27/2024, 03/02, 03/16/2023, Additional history exists Pap Smear 05/24/2026 05/25/2023, 05/19/2022 Cervical Cancer Screening 05/20/2027 HPV/Cotest 05/20/2027 Procedures Procedure Name Priority Date/Time Associated Diagnosis Comments GLUCOSE POCT GLUCOMETERS Routine 09/21/2024 11:00 AM EDT XR CHEST 1 VIEW 08/10/2024 10:42 AM EDT GLUCOSE POCT GLUCOMETERS Routine 08/10/2024 10:30 AM EDT GLUCOSE POCT GLUCOMETERS Routine 08/10/2024 7:08 AM EDT POCT GLUCOSE Routine 08/04/2024 10:54 AM EDT 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, unspecified whether watermelon inspector insulin use (HCC) POCT GLYCOSYLATED HEMOGLOBIN (HGB A1C) Routine 08/04/2024 10:54 AM EDT 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, unspecified whether detention insulin use (HCC) CONTRACTOR GENERAL ENGINEERING INSERTION/REMOVAL OF CONTRACEPTIVE CAPSULE Routine 06/30/2024 10:51 AM EDT Nexplanon removal MM TOMOSYNTHESIS SCREENING BI 05/27/2024 4:48 PM EDT PAP SMEAR Routine 05/25/2023 12:00 AM EDT from Last 3 Months or Most Recently Relevant to Health Maintenance Results * GLUCOSE POCT GLUCOMETERS (09/21/2024 11:00 AM EDT) Only the most recent of3 resultswithin the time period is included. [facility] GLUCOSE POC GLUCOMETERS 89 mg/dL 09/21/2024 11:07 AM EDT [facility] Comment: Random Glucose Reference Range is dependent on time and content of last meal. Glucose of more than 200 mg/dL in a nonstressed, ambulatory subject supports the diagnosis of Diabetes Mellitus. COMMEMT1 Glu2: Cleaned Meter 09/21/2024 11:07 AM EDT [facility] Blood (Blood) 09/21/2024 11: 00 AM EDT 09/21/2024 11:07 AM EDT us Mendez Ortiz DO LAB BLOOD ORDERABLES Final Result [facility] [address] [place] [address], * XR chest 1 view (08/10/2024 10:42 AM EDT) Anatomical Region Laterality Modality Chest Radiographic Michelle ging 08/10/2024 10:4 2 AM EDT Impressions 08/10/2024 10:45 AM EDT NO PNEUMOTHORAX. LOW LUNG VOLUMES WITH BIBASILAR ATELECTASIS. Impression dictated by: Alin Ornelas Jr., D.O. 08/10/2024 10:43 AM Dictation Location: [facility]--22 Transcribed By: CALVIN 08/10/24 1043 Dictated By: Alin Ornelas Jr, DO 08/10/24 1042 Signed By: <Electronically signed by Alin Ornelas Jr, in OV> 08/10/24 1043 Narrative 08/10/2024 10:45 AM EDT [address] [address] XRay Report Signed Patient: Pee Whitehead MR#: [id number] : 1980 Acct:[id number] Age/Sex: 43 / F ADM Date: 08/10/24 Loc: [place] [facility]: [facility] Dr: Mendez Ortiz DO Copies to: Mendez Ortzi DO Ordering Provider: Mendez Ortiz DO Date of Service: 08/10/24 XR/XR chest 1V portable: In PACU: Possible Pneumothorax SINGLE VIEW CHEST CLINICAL HISTORY: Inspire placement COMPARISON: None FINDINGS: Expiratory device is noted. No pneumothorax is seen. Low lung volumes with bibasilar atelectasis. Evidence of old granulomatous disease. XR/XR chest 1V portable Procedure Note Alin Ornelas Jr., DO - 09/08/[address] [address] XRay Report Signed Patient: Pee Whitehead AMR#: [id number] : 1980Acct:[id number] Age/Sex: 43 / FADM Date: 08/10/24 Loc: [place] Room:[facility] Dr: Mendez Ortiz DO Copies to: [...] Jr., D.O. 08/10/2024 10:43 AM Dictation Location: [facility]-22 Transcribed By: [facility] 08/10/24 1043 Dictated By: Alin Ornelas Jr, DO 08/10/24 1042 Signed By: <Electronically signed by Alin Ornelas Jr, inOV> 08/10/24 1043 Mendez Ortiz DO IMG XR PROCEDURES Edited Re sult - Final * POCT glycosylated hemoglobin (Hb A1C) docked [...] PM EDT Narrative 05/27/2024 4:49 [place] [address] Mammography Report Signed Patient: PEE WHITEHEAD MR#: [id number] : 1980 Acct:[id number] Age/Sex: 43 / F ADM Date: 05/27/24 Loc: MAMMO Attending Dr: Roel Garber D.O. Ordering Physician: Roel Garber D.O. Results: Date of Service: 05/27/24 Follow Up: Procedure(s): MM tomosynthesis screening BI Accession Number(s): [id number] cc: Roel Garber D.O.; Loreto Mcneal NP Patient Name: PEE WHITEHEAD MR#: [id number] : 1980 Exam Date: 05/27/2024 Ordering Doctor: [...] Treatments None Family Cancers None LOCATION: [facility] BREAST COMPOSITION: There are scattered areas of [...] Dictated By: Mio Serra D.O. Signed By: 05/27/249 DD/ 47 TD/TT: Adjunct Philosophy Faculty: Procedure Note Radiology, Radiologist, MD - 05/27/2024 [place] [address] Mammography Report Signed Patient: PEE WHITEHEAD AMR#: [id number] : 1980Acct:[id number] Age/Sex: 43 / FADM Date: 05/27/24 Loc: MAMMO Attending Dr: Roel Garber D.O. Ordering Physician: Roel Garber D.O.Results: Date of Service: 05/27/24Follow Up: Procedure(s): MM tomosynthesis screening BI Accession Number(s): [id number] cc: Roel Garber D.O.; Loreto Mcneal NP Patient Name: PEE WHITEHEAD MR#: [id number] : 1980 Exam Date: 05/27/2024 Ordering Doctor: DR Roel Garber . RADIOLOGY REPORT PROCEDURE: MM TOMOSYNTHESIS SCREENING BI COMPARISON: MM DIAGNOSTIC MAMMO UNILAT RT, 03/25/2023. MG MAMM [id number] STELLA CAD, 03/16/2023. MM TOMOSYNTHESIS SCREENING BI, 11/07/2021. MM TOMOSYNTHESIS DIAGNOSTIC BI, 11/06/2020. INDICATIONS: Screening Calculator Name NCI Breast Cancer Risk Assessment Tool 5 Year Breast Cancer Risk Not Reported. Lifetime Breast Cancer Risk Not Reported. Personal Breast Cancer No Personal Ovarian Cancer No Treatments None Family Cancers None LOCATION: [facility] BREAST COMPOSITION: There are scattered areas of [...] 16:48 Dictated By: Mio Serra D.O. Signed By:05/27/249 DD/ 47 TD/TT: Adjunct Philosophy Faculty: us Roel Shirlene DO [facility] Final Result * Pap Smear (05/25/2023 12:00 AM EDT) Swab Cervical swab / Unknown us Roel Shirlene DO LAB CYTOLOGY ORDERABLES Final Re sult EXTERNAL LAB from Last 3 Months or Most Recently Relevant to Health Maintenance Insurance [employer] Member Subscriber Plan / Payer (Ef fective 2013-Present) Name:Pee Lopes Relation to Subscriber:Self Name:Pee Lopes Payer ID:Not on file Group ID:Not on file Type:Not on file Address: [place] [phone] Care Teams Tobacco Stripper Hand Relationship Specialty Start Date End Date Shawna Dudley DO [address] [place] [address] PCP - General Family Medicine 04/14/22 Key Andrea NP [address] [place] [address] Referring Physician Family Medicine 08/13/23 Sasha Snatos DO [address] [place] [address] Referring Physician Neurology 05/10/24 Mendez Ortiz DO [address] [place] [address] Otolaryngology 08/19/24
--- OUTSIDE RECORDS SUMMARY | 2024-09-28 08:37 | XMS_ITS | Clinical Summary ---
Author Organization [facility] Address [address], [address] [place] [address] Care Team Providers Care Snuff Container Inspector Name Role Phone Loreto Mcneal APRN, NP [...] EDT - 07/16/2024 1:52 PM EDT Emergency [facility] Emergency Department [address] [place] [address] Post-traumatic osteoarthritis of left ankle [...] Description 11/10/2024 11:30 AM EDT Office Visit [facility] [address] [place] [phone] Karen Cotter, HADOOP INFRASTRUCTURE ARCHITECT - TRACK WALKER [address] [place] [phone] 1 year KUB Health Maintenance Due Date [...] Yellow Yellow 07/16/2024 1:25 PM [facility] Turbidity UA Clear Clear 07/16/2024 1:25 PM [facility] Glucose, Ur 3+(A) NEGATIVE mg/dL 07/16/2024 1:25 PM [facility] Bilirubin, Urine NEGATIVE NEGATIVE 07/16/2024 1:25 PM [facility] Ketones, Urine NEGATIVE NEGATIVE mg/dL 07/16/2024 1:25 PM [facility] Specific Mcgrann, UA 1.025(H) 1.010 - 1.020 07/16/2024 1:25 PM [facility] Urine Hgb NEGATIVE NEGATIVE 07/16/2024 1:25 PM [facility] pH, Urine 6.0 5.0 - 9.0 07/16/2024 1:25 PM [facility] Protein, UA NEGATIVE NEGATIVE mg/dL 07/16/2024 1:25 PM [facility] Urobilinogen, Urine Normal 0.0 - 1.0 EU/dL 07/16/2024 1:25 PM [facility] Nitrite, Urine NEGATIVE NEGATIVE 07/16/2024 1:25 PM [facility] Leukocyte Esterase, Urine NEGATIVE NEGATIVE 07/16/2024 1:25 PM [facility] WBC, UA 0 TO 2 0 - 5 /HPF 07/16/2024 1:25 PM [facility] RBC, UA 0 TO 2 0 - 2 /HPF 07/16/2024 1:25 PM EDT [facility] Epithelial Cells, UA 0 TO 2 0 - 25 /HPF 07/16/2024 1:25 PM EDT [facility] Bacteria, UA TRACE(A) None 07/16/2024 1:25 PM EDT [facility] Mucus, UA TRACE(A) None 07/16/2024 1:25 PM EDT [facility] Amorphous, UA TRACE(A) None 07/16/2024 1:25 PM EDT [facility] Urine URINE SPECIMEN / Unknown 07/16/2024 1:25 PM EDT 07/16/2024 1:29 PM EDT Prieto Daniel PA-C URINE ORDERABLES Final Result [facility] [address] [phone] * XR ANKLE LEFT (MIN 3 VIEWS) [...] 1. No acute abnormality. Prieto Daniel PA-C [facility] DI[facility]IC IMAGING ORDERAB LES Final Result * [...] 1. No acute abnormality. Prieto Daniel PA-C [facility]AG[facility] ORDERAB LES Final Result * [...] Final Result from Last 3 Months Insurance [facility] Care Teams Snuff Container Inspector Relationship Specialty Start Date End Date Loreto Mcneal APRN - NP [address] [place] [address] PCP - General 11/11/23
--- OUTSIDE RECORDS SUMMARY | 2024-09-28 08:37 | XMS_ITS | Encounter Summary ---
Author Organization [facility] Address [id number] [address] [place] [address] Care Team Providers Care Vice President For Instruction Name Role Phone Services, [facility] Primary Care Provider Reason for Visit * Reason Onset Date Comments Med Refill 06/19/2017 Encounter Details Date Type Department Care Team (Late st Contact Info) Description 06/19/2017 [facility] [address] [place] [phone] Amy Cerna LPN Social History Tobacco Use [...] documented as of this encounter Care Teams Vice President For Instruction Relationship Specialty Start Date End Date Services, [facility] [address] [place], [place] PCP - General Family Medicine 10/05/23 documented as of this encounter
--- OUTSIDE RECORDS SUMMARY | 2024-09-28 08:37 | XMS_ITS | Encounter Summary ---
Author Organization [facility] [facility] [employer] Address [id number] [address] [place] [address] Care Team Providers Care Management Specialist Name [facility] Reason for Visit * Reason Onset Date Comments Med Refill 11/10/2017 Encounter Details Date Type Department Care Team (Late st Contact Info) Description 11/10/2017 Refill [facility] [address] [place] [phone] Amy Cerna LPN Social History Tobacco Use [...] as of this encounter Care Teams Management Specialist Relationship Specialty Start Date End Date Services, [facility] [address] [place], [place] PCP - General Family Medicine 10/05/23 documented as of this encounter
--- OUTSIDE RECORDS SUMMARY | 2024-09-28 08:37 | XMS_ITS | Encounter Summary ---
Author Organization [facility] Sys tem Address [id number] [address] [place] [address] Care Team Providers Care Energy Conservation Specialist Name Role Phone Services, [facility] Primary Care Provider Reason for Visit * Reason Comments Med Refill Encounter Details Date Type Department Care Team (Late st Contact Info) Description 08/11/2017 Refill [facility] [address] [place] [address] [place] [phone] Francia High, [facility] [address] [place] [address] Social History Tobacco Use Types Packs/Day Years [...] documented as of this encounter Care Teams Energy Conservation Specialist Relationship Specialty Start Date End Date Services, [facility] [address] [place], [place] PCP - General Family Medicine 10/05/23 documented as of this encounter
--- OUTSIDE RECORDS SUMMARY | 2024-09-28 08:55 | XMS_ITS | CCD ---
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 Name Role Phone Juan Ramon Jean Unavailable Unavailable Ted Juan Ramon Unavailable Unavailable DOMENICA OLIVA Unavailable Unavailable Rumschlag [...] Provider DO Shawna Mcfadden Primary Care Provider RUMSCHLAG, SHAWNA K Referring Unavailable RUMSCHLAG, SHAWNA K Primary Care Unavailable RUMSCHLAG, SHAWNA K Referring Unavailable RUMSCHLAG, SHAWNA K Primary Care Unavailable DEEPIKA ROBLEDO Attending Unavailable JORGE, CARMEN Referring Unavailable RUMSCHLAG, SHAWNA K Primary Care Unavailable DWAYNE KHOURY Attending Unavail able RUMSCHLAG, SHAWNA K Referring Unavailable SERVICES, [facility] Care Unava ilable Fredis HYLTON - ASSOCIATE CHEMIST, Loreto Primary Care Prov ider SERVICES, [facility] Care Unava ilable SHAMMO, RORY Referring Unavailable RUMSCHLAG, SHAWNA K Primary Care Unavailable SHAMMO, RORY Referring Unavailable RUMSCHLAG, SHAWNA K Primary Care Unavailable PETE SILVER Attending Unavailable SILVERPETE Referring Unavailable RUMSCHLAG, SHAWNA K Primary Care Unavailable PETE SILVER Admitting Unavailable SILVERPETE Attending Unavailable RUMSCHLAG, SHAWNA K Referring Unavailable RUMSCHLAG, SHAWNA K Primary Care Unavailable JORGE, CARMEN Referring Unavailable SERVICES, [facility] Care Unava ilable GAURAV SELLERS Attending Unavailable RUMSCHLAG, SHAWNA K Referring Unavailable RUMSCHLAG, SHAWNA K Primary Care Unavailable Zully ASSOCIATE CHEMIST, Key Unavailable Rumschlag DO, Shawna Primary Care Provider Shammo ARMORED SERVICE TECHNICIAN-BC, Rory T Primary Care Provider Mio Marroquin DO Attending Provider Unavailab le Rumschlag DO, Shawna K Primary Care Provider [phone] [facility] Laila Santos DO Unavailable Shammo ARMORED SERVICE TECHNICIAN-BC, Rory T Primary Care Provider Mio Marroquin DO Attending Provider Unavailab carter Bourgeois MD, Andrius Arlyn Attending Unavailable Giedraitis , Andrius Vytautas Attending Unavailable Gimarysolraitis , Andrius Vytautas Attending Unavailable Giedraitis , Andrius Vytautas Attending Unavailable Giedraitis , Andrius Vytautas Attending Unavailable RUMSCHLAG, SHAWNA Referring Unavailable RUMSCHLAG, SHAWNA Primary Care Unavailable RUMSCHLAG, SHAWNA Primary Care Unavailable RUMSCHLAG, SHAWNA Referring Unavailable RUMSCHLAG, SHAWNA Referring Unavailable RUMSCHLAG, SHAWNA Primary Care Unavailable NASEEMHOLTZ, LORETO Primary Care Unavailable RUMSCHLAG, SHAWNA Referring [...] Referring Unavailable Mendez Cardoso DO Attending Provider Loreto Mcneal APRN Primary Care Provide r KENZIE VASQUEZ Attending Unavailable KENZIE VASQUEZ Referring Unavailable Mendez Cardoso DO Unavailable TREMANA PAULA COLON Admitting Unavailable TREMANA PAULA COLON R Attending Unavailable SERVICES, [facility] Primary Care Unava ilable Services, [facility], [facility] Primary Care Provider Jan Garg APRN Attending Provider CLEO ZAMBRANO Attending Unavailable CLEO ZAMBRANO Referring Unavailable ROEL GARBER Attending Unavailable MENDEZ CARDOSO Attending Unavailable LAILA SANTOS Attending Unavailable ROEL GARBER Attending Unavailable MENDEZ CARDOSO Attending Unavailable BRITTANY NEVILLE Attending Unavailable ROEL GARBER Attending Unavailable ROEL GARBER Attending Unavailable CLEO ZAMBRANO Attending Unavailable BILIZZIE, MENDEZ Ahumada Attending Unavailable LAILA SANTOS Referring Unavailable BIEDCONSTANCEBACH, MENDEZ Ahumada Attending Unavailable LAILA SANTOS Referring Unavailable BIEDODETTE, MENDEZ Ahumada Attending Unavailable Myeroziel, Loreto Chase Primary Care Unavailab le Walker, Mendez Attending Unavailable Walker, Mendez Admitting Unavailable Shammo, Rory T Primary Care Unavailable Mio Marroquin Attending Unavailable Mio Marroquin Admitting Unavailable Myerholtz, Loreto K Primary Care Unavailab le Walker, Mendez Attending Unavailable Biedenbach, Mendez Admitting Unavailable Biedenbach, Mendez Admitting Unavailable Myerholtz, Loreto K Primary Care Unavailab le Walker, Mendez Attending Unavailable Allergies Allergy Classification Reported Allergen(s) Allergy Type Date of Onset Reaction(s) Facility Cephalosporins (antibiotic) (2 sources) Cephalexin Drug Allergy 09-14-19 17 [facility] Serotonin Reuptake Inhibitors (SSRIs) (2 sources) Citalopram Drug Allergy 09-14-19 17 [facility] (20 sources) cephalexin; Translations: [Keflex] Drug Allergy 07-08-19 13 [facility] Repository (4 sources) citalopram; Translations: [CeleXA] Drug Allergy 07-08-19 13 [facility], heart palpitation [facility] Repository (20 sources) Cephalexin; Translations: [CEPHALEXIN] Drug Allergy 07-15-19 14 [facility] Work Phone: (20 sources) Citalopram; Translations: [CITALOPRAM] Drug Allergy 07-15-19 14 [facility], anaphylaxis [facility] (5 sources) metFORMIN Drug Allergy Unknown [employer] Other (20 sources) metFORMIN; Translations: [METFORMIN] Drug Allergy 04-15-19 23 Unknown, Unknown Reaction, hypoglycemia [facility] Repository Comment on above: bottoms out to unde r 40 (20 sources) Metformin And Related Propensity to adverse reactions to drug 04-20-19 24 Other (See Comments) [facility] (20 sources) POISON DEVORAH EXTRACT; Translations: [POISON DEVORAH EXTRACT] Propensity to adverse reactions to drug (disorder) 04-15-19 [facility] Repository (1 source) BIGUANIDES; Translations: [BIGUANIDES] Propensity to adverse reactions to drug (disorder) 04-15-19 [facility] Repository (1 source) Cephalexin Drug Allergy 08-11-19 [facility] Repository (1 source) Citalopram Drug Allergy 08-11-19 [facility] Repository (1 source) metFORMIN Drug Allergy 08-11-19 [facility] Repository Medications Current Medications Medication Drug Class(es) Dates Sig (Normalized) Sig (Original) acetaminophen 325 mg / HYDROcodone bitartrate 5 mg oral tablet (3 sources) Opioid Agonist Start: 08-10-2024 take 1 tablet by mouth every six hours as needed for pain acetaminophen 325 mg / oxyCODONE hydrochloride 5 mg oral tablet (1 source) Opioid Agonist Start: 09-21-2024 take 1 tablet by mouth every six hours as needed for pain [id number] actuat albuterol 0.09 mg/actuat metered dose [...] PRN Ac tive Albuterol 90 mcg/actuation aerosol (4 sources) Start: 07-27-2024 take 90 ug by inhalation every four hours as needed for wheezing Albuterol 90 mcg/actuation aerosol Active 90 MCG INHALATION Every 4 hours as needed for wheezing July 27, 2024 12:00am Complies with drug therapy Start: 07-27-2024 take 90 ug by inhala tion every four hours as needed for wheezing Albuterol 90 mcg/actuation aerosol Active 90 MCG INHALATION Every 4 hours as needed for wheezing July 27, 2024 12:00am Ros Allergy 180 MG (6 sources) take 1 tablet by mouth once daily Ros Allergy 180 MG 1 tablet Swallow whole with water; do not take with fruit juices. Orally Once a day Active B Complex Vitamins (vitamin B complex) tablet (20 sources) Start: 04-20-2024 take 1 tablet by mouth once daily B Complex Vitamins (vitamin B complex) tablet Take 1 tablet by mouth Daily 04/20/2024 Active bifidobacterium animalis [id number] unt / lactobacillus acidophilus [id number] unt oral capsule (6 sources) take 1 capsule by mouth once daily probiotic (ALIGN/RISAQUAD) CAPS capsule Take 1 capsule by mouth daily ALIGN Active blood-glucose meter (TRUE METRIX GLUCOSE METER) [...] PO Every morning July 27, 2024 12:00am Complies with drug therapy Start: 02-24-2023 End: 07-27-2024 take 1 capsule by mouth once daily Cholecalciferol (Vitamin D3) 50 mcg (2,000 unit) capsule Discontinued 2000 UNIT PO Daily May 21, 2023 12:00am July 27, 2024 11:26am Start: 04-09-2021 take 1 capsule by mo uth in the morning cholecalciferol (Vitamin D-3) 50 MCG (1999) capsule Take 2,000 Units by mouth in [...] for yeasty rash July 27, 2024 12:00am Complies with drug therapy Start: 04-21-2024 ciclopirox (Lo prox) 0.77 % [...] tab at night Complies with drug therapy Start: 11-16-2023 cyclobenzaprin e (Flexeril) 10 MG tablet Take 10 mg by mouth as needed in the morning and 10 mg as needed at noon and 10 mg as needed in the evening for muscle spasms. 11/16/2023 Active take 1 tablet by ash th three times daily as needed for muscle spasms cyclobenzaprine (FEXMID) 7.5 MG tablet Take 1 tablet (7.5 mg total) by mouth 3 (three) times a day as needed for muscle spasms. Active Cyclobenzaprine HCl (FLEXERIL PO) Take by mouth in the morning and at bedtime Take 2 at night and 1 every morning Active diclofenac sodium 0.01 mg/mg topical gel (20 sources) Nonsteroidal Anti-inflammatory Drug Start: 07-27-2024 Diclofenac Sodium (Arthritis Pain (Diclofenac)) 1 % gel Active 2 GM TOPICAL Twice daily July 27, 2024 12:00am Complies with drug therapy Start: 07-27-2024 Diclofenac Sod ium (Arthritis Pain (Diclofenac)) 1 % gel Active 2 GM TOPICAL Twice daily July 27, 2024 12:00am Start: 11-16-2023 take 1 tablet by ash th twice daily Diclofenac Sodium 75 mg tablet,delayed release (DR/EC) Active 75 MG PO Twice daily July 27, 2024 12:00am Complies with drug therapy Diclofenac Sodiu m (VOLTAREN PO) Take by mouth in the morning and at bedtime One every morning and two every night Active DULoxetine 60 mg delayed release oral capsule (20 sources) Serotonin and Norepinephrine Reuptake Inhibitor Start: 10-15-2023 take 1 capsule by mouth once daily in the morning Duloxetine 60 mg capsule,delayed release(DR/EC) Active 60 MG PO Every morning October 15, 2023 12:00am Complies with drug therapy Start: 05-21-2023 take 30 mg by mouth once daily Duloxetine Active 30 MG PO Daily May 21, 2023 12:00am Start: 05-21-2023 End: 10-15-2023 take 1 capsule by mouth once daily Duloxetine 30 mg capsule,delayed release(DR/EC) Discontinued 30 MG PO Daily May 21, 2023 12:00am October 15, 2023 9:27am Start: 03-31-2023 End: 04-30-2023 take 1 capsule [...] PO Every morning May 20, 2023 12:00am Complies with drug therapy famotidine 40 mg oral tablet (20 sources) Histamine-2 Receptor Antagonist Start: 08-08-2024 take 1 tablet by mouth twice daily Famotidine 40 mg tablet Active 40 MG PO Twice daily 60 30 August 08, 2024 12:00am Complies with drug therapy Start: 05-20-2023 End: 07-27-2024 take 1 tablet by mouth once daily Famotidine 40 mg tablet Discontinued 40 MG PO Daily 30 June 02, 2024 9:59am July 27, 2024 11:11am Start: 10-14-2018 take 1 tablet by ash th twice daily famotidine (PEPCID) 20 mg [...] MG PO Daily July 27, 2024 12:00am Complies with drug therapy Start: 04-09-2020 take 1 tablet by ash th once daily ferrous sulfate 325 (65 FE) mg tablet TAKE 1 TABLET BY MOUTH DAILY 30 tablet 5 04/09/2020 Active fexofenadine hydrochloride 180 mg oral tablet (20 sources) Histamine-1 Receptor Antagonist Start: 02-24-2023 take 1 tablet by mouth once daily at bedtime Fexofenadine 180 mg tablet Active 180 MG PO Daily at bedtime May 21, 2023 12:00am Complies with drug therapy take 1 tablet by mouth in the mo rning fexofenadine (ROS) 60 mg tablet Take 1 tablet (60 mg total) by mouth in the morning. Active fluconazole 150 mg oral tablet (4 sources) Azole Antifungal Start: 07-27-2024 take 1 tablet by mouth once as needed Fluconazole 150 mg tablet Active 150 MG PO Once as needed for yeast infection July 27, 2024 12:00am Complies with drug therapy fluticasone propionate 0.05 mg/actuat metered dose nasal spray (20 sources) Corticosteroid Start: 07-27-2024 take 1 spray(s) nasal route once daily as needed Fluticasone Propionate 50 mcg/actuation spray,suspension Active 2 SPRAY INTRANASAL Daily as needed for allergy symptoms July 27, 2024 12:00am administer into each nostril Complies with drug therapy Start: 07-16-2020 take 2 spray(s) nasa l [...] PO Twice daily July 27, 2024 12:00am Complies with drug therapy Start: 03-31-2024 gabapentin (Ne urontin) 300 MG [...] / neomycin 3.5 mg/ml / polymyxin b 51205 unt/ml otic solution (1 source) Aminoglycoside Antibacterial, Polymyxin-class Antibacterial, Corticosteroid Start: 10-22-2021 End: 10-29-2021 mgscffig-inohzloiq-ionyspkqe isone (CORTISPORIN) 3.5-89060-[address] 4 drops into the [...] 1 03/20/2018 Active take 1 tablet by ash th every six hours as needed for pain ibuprofen (MOTRIN) 800 mg tablet Take 1 tablet (800 mg total) by mouth every 6 (six) hours as needed for pain. Active take 1 tablet by ash th every eight hours at mealtime as needed Ibuprofen 800 MG 1 tablet with food or milk as needed Orally every 8 hrs Not-Taking/PRN lamoTRIgine 200 mg oral tablet (20 sources) Mood Stabilizer, Anti-epileptic Agent Start: 02-13-2019 take 1 tablet by mouth once daily in the morning Lamotrigine 200 mg tablet Active 200 MG PO Every morning May 20, 2023 12:00am Complies with drug therapy lidocaine 0.05 mg/mg medicated patch (4 sources) Antiarrhythmic, Amide Local Anesthetic Start: 07-27-2024 apply 1 dose topically once daily as needed for pain Lidocaine 5 % adhesive patch,medicated Active 1 PATCH TOPICAL Daily as needed for pain July 27, 2024 12:00am Complies with drug therapy lisdexamfetamine dimesylate 70 mg oral capsule (20 sources) Central Nervous System Stimulant Start: 01-09-2022 take 1 capsule by mouth once daily in the morning Lisdexamfetamine 70 mg capsule Active 70 MG PO Every morning May 20, 2023 12:00am Complies with drug therapy 10 ml methocarbamol 100 mg/ml injection (19 sources) Muscle Relaxant Start: 10-14-2018 Robaxin 100 mg/mL inj Refills(s) 0 Start Date: 10/14/18 Status: Ordered take 1 tablet by ash th three times daily methocarbamol (ROBAXIN) 500 [...] PO Every morning July 27, 2024 12:00am Complies with drug therapy Start: 03-21-2024 metoprolol suc cinate XL (Toprol-XL) [...] 07/16/2020 Active Mounjaro 2.5 MG/0.5ML solution auto-injector (14 sources) Start: 09-16-2024 Mounjaro 2.5 MG/0.5ML solution auto-injector Indications: 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, unspecified whether nursing home insulin use (HCC) INJECT 2.5 MG SUBCUTANEOUSLY (UNDER THE SKIN) EVERY 7 DAYS 2 mL 3 09/16/2024 Active Start: 06-01-2024 End: 08-04-2024 Mounjaro 2.5 MG/0.5ML soluti on auto-injector INJECT 2.5 MG SUBCUTANEOUSLY (UNDER THE SKIN) EVERY 7 DAYS 06/01/2024 08/04/2024 Discontinued (Dose adjustment) Start: 06-01-2024 Mounjaro 2.5 M G/0.5ML solution auto-injector INJECT 2.5 MG SUBCUTANEOUSLY (UNDER THE SKIN) EVERY 7 DAYS 06/01/2024 Active Multiple Vitamin (Tab-A-Karely) tablet (20 sources) Start: 12-26-2022 take 1 tablet by mouth once daily Multiple Vitamin (Tab-A-Kareyl) tablet Take 1 tablet by mouth Daily 12/26/2022 Active Start: 12-26-2022 take 1 tablet by ash th in the morning Multiple Vitamin (Tab-A-Karely) tablet Take 1 tablet by mouth in the morning. 12/26/2022 Active jixsswdx-zgex-PD-calcium &mi ns (THERAGRAN-M) 9 mg iron-400 mcg tablet (12 sources) ldmvugbm-lqxx-AD -calcium &mins (THERAGRAN-M) 9 mg iron-400 mcg tablet Take 1 tablet by mouth in the morning. Active hpltvail-lllb-YU -calcium &mins (THERAGRAN-M) 9 mg iron-400 mcg tablet Take 1 tablet by mouth in the morning. 0 Active Multivitamin preparation (20 sources) Multivitamin Act amaury Multivitamin With Folic Acid (Daily-Karely (With Folic Acid)) 400 mcg tablet (7 sources) Start: 05-20-2023 take 1 tablet by mouth once daily in the morning Multivitamin With Folic Acid (Daily-Karely (With Folic Acid)) 400 mcg tablet Active 1 TAB PO Every morning May 20, 2023 12:00am Complies with drug therapy Start: 05-20-2023 take 1 tablet by ash th once daily in the morning Multivitamin With [...] needed for rash July 27, 2024 12:00am Complies with drug therapy Start: 03-16-2023 End: 03-03-2024 mupirocin (Bactroban) 2 [...] 3 times a day 0 Active nystatin [id number] unt/ml topical cream (17 sources) Polyene Antifungal [...] daily 60 30 August 08, 2024 12:00am Complies with drug therapy Start: 07-27-2024 take 1 tablet by ash th once daily in the morning Pantoprazole 20 mg tablet,delayed release (DR/EC) Active 20 MG PO Every morning July 27, 2024 12:00am Complies with drug therapy Start: 06-14-2024 End: 07-27-2024 take 1 tablet by mouth twice daily Pantoprazole 20 mg tablet,delayed release (DR/EC) Discontinued 20 MG PO Twice daily 60 30 June 14, 2024 12:00am July 27, 2024 11:36am take 1 tablet by ash th before mealtime pantoprazole (ProtoNix) 40 MG [...] Daily at bedtime May 20, 2023 12:00am Complies with drug therapy polyethylene glycol 3350 [id number] mg / potassium chloride 2970 mg / sodium bicarbonate 6740 mg / sodium chloride 5860 mg / sodium sulfate 36947 mg powder for oral solution (2 sources) Osmotic Laxative Start: 03-17-2023 Golytely 236 GM 236 ml Orally 8 ounces every 15 minutes for 1 days PLEASE CHECK ALLERGIES Mar, Active prasterone (DHEA) (4 sources) Start: 07-27-2024 take 1 tablet by mouth once daily in the morning prasterone (DHEA) Active 1 TAB PO Every morning July 27, 2024 12:00am Complies with drug therapy Start: 07-27-2024 take 1 tablet by ash th once daily in the morning prasterone (DHEA) [...] Nausea, # 20 tab(s), Refills(s) 0, Pharmacy: [facility], 157, cm, 03/10/19 12:21:00 EST, Height/Length Measured, 100.7, kg, 03/10/19 12:21:00 EST, Weight Measured Start Date: 06/13/19 Status: Ordered rizatriptan 10 mg oral tablet (20 sources) Serotonin-1b and Serotonin-1d Receptor Agonist Start: 06-02-2022 Rizatriptan (Maxalt) 10 mg tablet Active 10 MG PO . NEEDED as needed for migraine headache May 20, 2023 12:00am Complies with drug therapy Start: 01-16-2019 take 1 tablet by ash th every two hours, then take 2 [...] Daily at bedtime May 20, 2023 12:00am Complies with drug therapy Start: 05-20-2023 take 1 tablet by ash th once daily Rosuvastatin 10 mg tablet Active 10 MG PO Daily May 20, 2023 12:00am take 1 tablet by ash th in the morning rosuvastatin (CRESTOR) 20 [...] mg / trimethoprim 160 mg oral tablet (3 sources) Dihydrofolate Reductase Inhibitor Antibacterial, Sulfonamide Antimicrobial Start: 08-10-2024 End: 09-21-2024 take 1 tablet by mouth twice daily SUMAtriptan 100 mg oral tablet (20 sources) Serotonin-1b and Serotonin-1d Receptor Agonist Start: 06-20-2024 take 1 tablet by mouth once daily as needed SUMAtriptan (Imitrex) 100 MG tablet Indications: Migraine with aura and without status migrainosus, not intractable TAKE 1 TABLET BY MOUTH DAILY NEEDED FOR MIGRAINE 9 tablet 1 06/20/2024 Active Start: 02-22-2024 take 1 tablet by ash th once daily as needed SUMAtriptan (Imitrex) [...] Active Start: 05-20-2023 take 1 tablet by ash th twice daily as needed for headache Sumatriptan Succinate 100 mg tablet Active 100 MG PO Twice daily as needed for migraine headache May 20, 2023 12:00am Complies with drug therapy Start: 11-03-2018 take 1 tablet by ash th every two hours, then take 2 tablets by mouth once daily, then take 2 tablets by mouth every week SUMAtriptan (IMITREX) 100 mg tablet TAKE 1 TABLET BY MOUTH at onset of FOR MIGRAINE. May repeat once after 2 hours if needed (max 2 TABLETS per day, 2 TABLETS per week) 2 11/03/2018 Active take 1 tablet by ash th every two hours as needed, then [...] 5000 mg testosterone 0.01 mg/mg topical gel (4 sources) Androgen Start: 07-27-2024 Testosterone 50 mg/5 gram (1 %) gel Active 50 MG TRANSDERML Daily July 27, 2024 12:00am Complies with drug therapy Tirzepatide (4 sources) Start: 07-27-2024 Tirzepatide (Mounjaro) 2.5 mg/0.5 mL pen injector Active 2.5 MG SUBCUT Once a week July 27, 2024 12:00am Complies with drug therapy Start: 07-27-2024 Tirzepatide (M ounjaro) 2.5 mg/0.5 mL pen injector Active 2.5 MG SUBCUT Once a week July 27, 2024 12:00am tirzepatide (MOUNJARO) 2.5 mg/0.5 mL pen injector (1 source) tirzepatide (ASH NJARO) 2.5 mg/0.5 mL pen injector Inject 2.5 mg under the skin every 7 days. Active Tirzepatide (Mounjaro) 2.5 MG/0.5ML solution auto-injector (10 sources) Start: 04-11-2024 End: 05-11-2024 Tirzepatide (Mounjaro) 2.5 MG/0.5ML solution auto-injector Indications: 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, unspecified whether long chain beamer insulin use (CMS/HCC) Inject 2.5 mg under the skin every 7 (seven) days 2 mL 3 04/11/2024 05/11/2024 Active Start: 04-07-2024 End: 05-07-2024 Tirzepatide (Mounjaro) 2.5 M G/0.5ML solution auto-injector Indications: 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, unspecified whether long chain beamer insulin use (CMS/HCC) Inject 2.5 mg under the skin every 7 (seven) days 2 mL 3 04/07/2024 05/07/2024 Active Tirzepatide (Mounjaro) 5 MG/0.5ML solution auto-injector (14 sources) Start: 08-04-2024 End: 11-02-2024 Tirzepatide (Mounjaro) 5 MG/0.5ML solution auto-injector Indications: 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, unspecified whether nursing home insulin use (HCC) Inject 5 mg under the skin every 7 (seven) days 6 mL 1 08/04/2024 11/02/2024 Active Start: 08-04-2024 End: 11-02-2024 Tirzepatide (Mounjaro) 5 MG/ 0.5ML solution auto-injector Indications: 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, unspecified whether long chain beamer insulin use Inject 5 mg under the [...] needed for pain May 20, 2023 12:00am Complies with drug therapy Ultram Active Trulance 3 MG (1 source) Start: 02-05-2023 take 1 tablet by mouth once daily Trulance 3 MG 1 tablet Orally Once a day for 30 days Jan, Active TRULICITY 3 mg/0.5 mL pen injector (11 sources) Start: 10-15-2022 TRULICITY 3 mg /0.5 [...] Vitamin B Complex (Vitamins B Complex) tablet (4 sources) Start: 07-27-2024 take 1 tablet by mouth once daily in the morning Vitamin B Complex (Vitamins B Complex) tablet Active 1 TAB PO Every morning July 27, 2024 12:00am Complies with drug therapy Start: 07-27-2024 take 1 tablet by ash th once daily in the morning Vitamin B [...] PO Twice daily May 21, 2023 10:20am Complies with drug therapy Start: 02-24-2023 take 1 tablet by ash th in the morning ascorbic acid (Vitamin C) 500 MG tablet Take 500 mg by mouth in the morning and 500 mg before bedtime. 02/24/2023 Active Start: 02-24-2023 End: 05-21-2023 take 1 tablet by mouth once daily Ascorbic Acid (Vitamin C) (Vitamin C) 500 mg tablet Discontinued 500 MG PO Daily May 20, 2023 12:00am May 21, 2023 10:34am bifidobacterium infantis 4 mg oral capsule (20 sources) Start: 01-07-2023 End: 08-08-2024 take 1 capsule by mouth once daily Bifidobacterium Infantis (Align (B.Infantis)) 4 mg capsule Discontinued 4 MG PO Daily June 02, 2024 10:01am July 27, 2024 11:25am docusate sodium 100 mg oral capsule (20 sources) Start: 01-07-2023 End: 08-08-2024 take 1 capsule by mouth three times daily Docusate Sodium 100 mg capsule Discontinued 100 MG PO Three times daily 90 June 02, 2024 10:01am August 08, 2024 1:58pm Start: 01-07-2023 take 3 capsules by m outh every twenty-four hours Docusate Sodium 100 MG 3 CAPSULES Orally Once a day for 30 days Dec, Active Dulaglutide (9 sources) GLP-1 Receptor Agonist Start: 05-20-2023 End: 05-21-2023 Dulaglutide (Trulicity) 3 mg/0.5 mL pen injector Discontinued MG SUBCUT May 20, 2023 12:00am May 21, 2023 10:20am Trulicity 3 MG/0 .5ML as directed Subcutaneous WEEKLY Active Dulaglutide (Trulicity) 3 mg/0.5 mL pen injector (6 sources) Start: 05-20-2023 End: 03-21-2024 Dulaglutide (Trulicity) 3 mg /0.5 mL pen [...] 20, 2023 11:00pm October 15, 2023 8:27am etonogestrel 68 mg drug implant (20 sources) Progestin Start: 05-20-2023 End: 07-27-2024 Etonogestrel (Nexplanon) 68 mg implant Discontinued 68 MG SUBDERMAL As Directed May 20, 2023 12:00am July 27, 2024 11:11am Start: 10-14-2018 Nexplanon 68 m g subcutaneous implant Refills(s) 0 Start Date: 10/14/18 Status: Ordered inject 68 mg by subc utaneous injection once etonogestrel-eluting (Nexplanon) 68 mg contraceptive implant Inject 68 mg under the skin 1 (one) time Active Etonogestrel (Nexplanon) 68 mg implant (6 sources) [...] SUBDERMAL As Directed May 20, 2023 12:00am FLUoxetine 40 mg oral capsule (20 sources) Serotonin Reuptake Inhibitor Start: 07-14-2019 take 1 tablet by mouth once daily in the morning Fluoxetine 60 mg tablet Active 60 MG PO Every morning October 15, 2023 12:00am Complies with drug therapy Start: 07-14-2019 End: 10-15-2023 take 1 capsule by mouth once daily Fluoxetine 40 mg capsule Discontinued 40 MG PO Daily May 20, 2023 12:00am October 15, 2023 9:28am take 3 capsules by m outh once daily FLUoxetine (PROZAC) 20 MG capsule Take 3 capsules by mouth daily Active Iron (20 sources) Iron Not-Taking/ PRN Iron [...] capsule,delayed release(DR/EC) Discontinued 30 MG PO Daily June 02, 2024 10:00am June 14, 2024 3:23pm linaclotide 0.29 mg oral capsule (20 sources) [...] skin Daily 05/19/2023 04/07/2024 Discontinued (Formulary change) lurasidone hydrochloride 80 mg oral tablet (20 sources) Atypical Antipsychotic Start: 04-17-2020 take 1 tablet by mouth once daily in the morning Lurasidone 120 mg tablet Active 120 MG PO Every morning October 15, 2023 12:00am Complies with drug therapy Start: 01-19-2020 End: 10-15-2023 take 1 tablet [...] 21, 2023 12:00am take 1 tablet by ash th once daily meloxicam (MOBIC) 15 MG [...] MG/DOSE) 2 MG/1.5ML as directed Subcutaneous Not-Taking plecanatide 3 mg oral tablet (10 sources) Start: 02-27-2023 End: 05-21-2023 take 1 tablet by mouth once daily Plecanatide (Trulance) 3 mg tablet Discontinued 3 MG PO Daily May 21, 2023 12:00am May 21, 2023 11:36am Start: 02-05-2023 take 1 tablet by ash th every twenty-four hours Trulance 3 MG 1 tablet Orally Once a day for 30 days Jan, Active Plecanatide (Trulance) 3 mg tablet (6 sources) [...] May 21, 2023 11:36am polyethylene glycol 3350 [id number] mg powder for oral solution (7 sources) [...] kg (120 lbs.) and less than Tirzepatide (5 sources) Start: 06-02-2024 End: 07-27-2024 Tirzepatide (Mounjaro) [...] 10/14/18 Status: Ordered take 1 tablet by ash th every six hours as needed tiZANidine (ZANAFLEX) 4 MG tablet Take 4 mg by mouth every 6 hours as needed Active take 2 tablets by mo ut every twenty-four hours tiZANidine HCl 4 MG 2 tablet Orally daily Active take 1 tablet by ash th every twelve hours tiZANidine HCl 4 MG 1 tablet Orally TWICE A DAY Active traZODone hydrochloride 50 mg oral tablet (20 sources) Serotonin Reuptake Inhibitor Start: 04-17-2020 End: 05-21-2023 take 1 tablet by mouth once daily at bedtime as needed Trazodone 50 mg tablet Discontinued 50 MG PO Daily at bedtime as needed May 20, 2023 12:00am May 21, 2023 [...] with hyperactivity] Chronic Calculus of urinary tract (20 sources) Personal history of urinary calculi; Translations: [History of calculus of kidney] Onset: 5 Resolved: 5 Episodic Complication of device; implant or graft (2 sources) Complication associated with neurological device; Translations: [Breakdown (mechanical) of implanted electronic neurostimulator, generator, sequela] 09-20-2024 Episodic Contraceptive and procreative management (3 sources) [...] tripping, or stumbling] 04-20-2023 Episodic Esophageal disorders (10 sources) Gastroesophageal reflux disease; Translations: [Gastro-esophageal reflux [...] source) Nausea 11-26-2018 Episodic Nonspecific chest pain (20 sources) Chest pain, unspecified; Translations: [Chest pain] Onset: 4 Resolved: 5 10-15-2023 Episodic Nutritional deficiencies (20 sources) Vitamin [...] disorder, unspecified] 04-18-2024 Episodic Other gastrointestinal disorders (7 sources) Irritable bowel syndrome; Translations: [Irritable bowel syndrome without diarrhea] 05-21-2023 Chronic Other gastrointestinal disorders (6 sources) Irritable bowel syndrome without diarrhea; Translations: [Irritable bowel syndrome] 05-21-2023 Chronic Other gastrointestinal disorders (1 source) Intestinal malabsorption, unspecified; Translations: [Intestinal malabsorption, unspecified] Onset: 4 Chronic Other gastrointestinal disorders (14 sources) Irritable bowel syndrome characterized by constipation; Translations: [Irritable bowel syndrome with constipation] Onset: 5 Resolved: 5 08-08-2024 Chronic Other gastrointestinal disorders (2 sources) Irritable bowel syndrome with constipation; Translations: [Irritable bowel syndrome] 08-08-2024 Chronic Other gastrointestinal disorders (20 sources) Constipation; Translations: [Constipation, unspecified] Onset: 5 Resolved: 5 03-02-2023 Episodic Other gastrointestinal disorders (10 sources) Constipation, unspecified; [...] (change of) liver, not elsewhere classified] Onset: 5 Resolved: 5 05-20-2023 Chronic Other liver diseases (15 sources) Fatty (change [...] work type] Chronic Other nervous system disorders (10 sources) Chronic pain; Translations: [Other chronic pain] Onset: 5 Resolved: 5 08-17-2024 Chronic Other nervous system disorders (2 sources) Paresthesia; Translations: [Paresthesia of skin] 11-30-2023 Episodic Other nervous system disorders (13 sources) Postoperative pain ; Translations: [Other acute postprocedural pain] Onset: 5 Resolved: 5 08-10-2024 Episodic Other nervous system disorders (1 source) [...] Chronic Other nutritional; endocrine; and metabolic disorders (16 sources) Body mass index 30+ - obesity; Translations: [Body mass index (BMI) 36.0-36.9, adult] 06-05-2023 Chronic Other nutritional; endocrine; and metabolic disorders (8 sources) Severe obesity; Translations: [Class 2 severe obesity due to excess calories with serious comorbidity and body mass index (BMI) of 39.0 to 39.9 in adult (CMS/[facility])] 04-07-2024 Chronic Other nutritional; endocrine; and metabolic disorders (4 sources) Weight increased; Translations: [Abnormal weight gain] 04-07-2024 Episodic Other screening for suspected conditions (not mental disorders or infectious disease) (20 sources) Elevated liver enzymes level; Translations: [Abnormal results of liver function studies] Onset: 2 Resolved: 5 Episodic Other upper respiratory disease (20 sources) Chronic rhinitis; Translations: [Chronic rhinitis] Onset: 4 03-10-2023 Chronic Residual codes; unclassified (5 sources) Obstructive sleep apnea (adult) (pediatric); Translations: [OBSTRUCTIVE SLEEP APNEA] Onset: 3 Chronic Residual codes; unclassified (13 sources) Obstructive sleep apnea syndrome; Translations: [Obstructive [...] Test Name Value Interpretation Reference Range Facility Basic Metabolic Panelon 08-31 Creatinine Clr Calc Pharmacy 134.46 Normal [facility] Comment on above: Result Comment: PERF ORMED BY: [place] [address] PATHOLOGIST GAS FITTER APPRENTICE EVELYN KOVACS M.D. Performed By: #### B MP #### [place] [address] [place] GFR/1.73 sq M.predicted MDRD (S/P/Bld) [Vol rate/Area] mL/min/{1.73_m2} Normal [facility] Comment on above: Performed By: #### B MP #### [place] [address] [place] Basophils [#/volume] in Bloo d by Automated countOrdered By: Gio Kim on 09-21-2024 Basophils (Bld) [#/Vol] 0.0 10*3/uL Normal 0.0-0.2 [facility] Comment on above: Result Comment: PERF ORMED BY: [place] [address] PATHOLOGIST GAS FITTER APPRENTICE EVELYN KOVACS M.D. Performed By: #### C BC #### [place] [address] [place] Basophils/100 leukocytes in Blood by Automated countOrdered By: Gio Kim on 09-21-2024 Basophils/100 WBC (Bld) 0.6 % Normal . [facility] Comment on above: Performed By: #### C BC #### [place] [address] [place] Calcium [Mass/volume] in Ser um or PlasmaOrdered By: Gio Kim on 09-21-2024 Calcium [Mass/Vol] 9.2 mg/dL Normal 8.6-10.3 [facility] Comment on above: Performed By: #### B MP #### [address] Capillary blood glucose savannah urement by glucometer (mass/volume)on 09-21-2024 Glucose [Mass/Vol] 89 mg/dL Normal [facility] Comment on above: Random Glucose Refer ence Range is dependent on time and content of last meal. Glucose of more than 200 mg/dL in a nonstressed, ambulatory subject supports the diagnosis of Diabetes Mellitus. Random Glucose Refer ence Range is dependent on time and content of last meal. Glucose of more than 200 mg/dL in a nonstressed, ambulatory subject supports the diagnosis of Diabetes Mellitus. Result Comment: [place] [facility] Glucose Reference Range is dependent on time and content of last meal. Glucose of more than 200 mg/dL in a nonstressed, ambulatory subject supports the diagnosis of Diabetes Mellitus. Performed By: #### G MARTHA #### Point of Care testing , Carbon dioxide, total [Moles /volume] in Serum or PlasmaOrdered By: Gio Kim on 09-21-2024 CO2 [Moles/Vol] 27.4 mmol/L Normal 21.0-31.0 [facility] Comment on above: Performed By: #### B MP #### [address] Chloride [Moles/volume] in S lore[place] or PlasmaOrdered By: Gio Kim on 09-21-2024 Chloride [Moles/Vol] 105 mmol/L Normal 98-107 [facility] Comment on above: Performed By: #### B MP #### [address] Complete Blood Count Auto Di ffon 09-21-2024 Mean Corpuscular HGB Conc 33.7 g/dL Normal 32.0-35.0 [facility] Comment on above: Performed By: #### C BC #### [address] NRBC% 0.1 /100{WBC} Normal 0-0.5 [facility] Comment on above: Performed By: #### C BC #### [address] White Blood Count 8.3 [CFU]/mL Normal 3.8-11.6 [facility] Comment on above: Performed By: #### C BC #### [address] Creatinine [Mass/volume] in Serum or PlasmaOrdered By: Gio Kim on 09-21-2024 Creatinine [Mass/Vol] 0.60 mg/dL Normal 0.60-1.20 [facility] Comment on above: Performed By: #### B MP #### [address] ECG 12 lead ECGon 09-21-2024 ECG 12 lead ECG [facility] [place] [address] [place] [address] Electrocardiograph Report Signed Patient: Karma Whitehead MR#: [id number] : 1980 Acct:[id number] Age/Sex: 43 / F ADM Date: 09/21/24 Loc: [place] Room: Type: [facility] Attending Dr: Mendez Cardoso DO Ordering Provider: Gio Kim Jr, MD Date of Service: 09/21/24 ECG/ECG 12 lead ECG: pre-op Copies to: Test Reason : Blood Pressure : */* mmHG Vent. Rate : 80 BPM Atrial Rate : 80 BPM P-R Int : 136 ms QRS Dur : 80 ms QT Int : 400 ms P-R-T Axes : 51 13 35 degrees QTcB Int : 461 ms Normal sinus rhythm Normal ECG No previous ECGs available Confirmed by CATHERINE BLAKELY MD ([id number]) on 09/21/2024 5:24:37 PM Referred By: Electronically Signed By: CATHERINE BLAKELY MD Transcribed By: MUS Signed By Catherine Blakely MD 0 09/21/24 1724 Normal [facility] Eosinophils [#/volume] in Bl ood by Automated countOrdered By: Gio Kim on 09-21-2024 Eosinophils (Bld) [#/Vol] 0.2 10*3/uL Normal 0.0-0.45 [facility] Comment on above: Performed By: #### C BC #### [address] Eosinophils/100 leukocytes i n Blood by Automated countOrdered By: Gio Kim on 09-21-2024 Eosinophils/100 WBC (Bld) 1.8 % Normal . [facility] Comment on above: Performed By: #### C BC #### [address] Erythrocyte distribution wid th [Ratio] by Automated countOrdered By: Gio Kim on 09-21-2024 Erythrocyte distribution width (RBC) [Ratio] 14.9 % Normal 11.9-15.3 [facility] Comment on above: Performed By: #### C BC #### [address] Erythrocytes [#/volume] in B lood by Automated countOrdered By: Gio Kim on 09-21-2024 RBC (Bld) [#/Vol] 5.08 10*6/uL High 3.60-5.00 [facility] Comment on above: Performed By: #### C BC #### [address] GLUCOSE POCT GLUCOMETERSon 0 09-21-2024 [facility] Glucose Poct Glucometerson 0 09-21-2024 COMMEMT1 Glu2: Cleaned Meter Normal [facility] Comment on above: Result Comment: PERF ORMED BY: [place] [address] PATHOLOGIST GAS FITTER APPRENTICE EVELYN KOVACS M.D. Performed By: #### G LUGILDARDO #### Point of Care testing , Glucose [Mass/volume] in Ser um or PlasmaOrdered By: Gio Kim on 09-21-2024 Glucose [Mass/Vol] 87 mg/dL Normal 70-100 [facility] Comment on above: ADA recommended refe rence rangeRandom Glucose Reference Range is dependent on time and content of last meal. Glucose of more than 200 mg/dL in a nonstressed, ambulatory subject supports the diagnosis of Diabetes Mellitus. Result Comment: [facility] Glucose Reference Range is dependent on time and content of last meal. Glucose of more than 200 mg/dL in a nonstressed, ambulatory subject supports the diagnosis of Diabetes Mellitus. ADA recommended reference range Performed By: #### B MP #### [address] HCG ( test) IA.rapi d Ql (U)Ordered By: Gio Kim on 09-21-2024 HCG ( test) Ql (U) Negative [facility] HCG,Urineon 09-21-2024 Beta HCG ( test) Ql (U) Negative Normal [facility] Comment on above: Result Comment: PERF ORMED BY: [place] [address] PATHOLOGIST GAS FITTER APPRENTICE EVELYN KOVACS M.D. Performed By: #### U HCG #### [address] Hematocrit [Volume Fraction] of Blood by Automated countOrdered By: Gio Kim on 09-21-2024 Hematocrit (Bld) [Volume fraction] 42.1 % Normal 34.0-46.4 [facility] Comment on above: Performed By: #### C BC #### [address] Hemoglobin [Mass/volume] in BloodOrdered By: Gio Kim on 09-21-2024 Hemoglobin (Bld) [Mass/Vol] 14.2 g/dL Normal 11.8-15.4 [facility] Comment on above: Performed By: #### C BC #### [address] Leukocytes [#/volume] correc comfort for nucleated erythrocytes in Blood by Automated counOrdered By: Gio Kim on 09-21-2024 WBC corrected for nucl RBC Auto (Bld) [#/Vol] 8.3 10*3/uL 3.8-11.6 [facility] Leukocytes [#/volume] in Blo od by Automated countOrdered By: Gio Kim on 09-21-2024 WBC (Bld) [#/Vol] 8.3 10*3/uL Normal 3.8-11.6 [facility] Comment on above: Performed By: #### C BC #### [address] Lymphocytes [#/volume] in Bl ood by Automated countOrdered By: Gio Kim on 09-21-2024 Lymphocytes (Bld) [#/Vol] 2.5 10*3/uL Normal 1.00-4.8 [facility] Comment on above: Performed By: #### C BC #### [address] Lymphocytes/100 leukocytes i n Blood by Automated countOrdered By: Gio Kim on 09-21-2024 Lymphocytes/100 WBC (Bld) 30.4 % Normal . [facility] Comment on above: Performed By: #### C BC #### [address] MCH [Entitic mass] by Automa comfort countOrdered By: Gio Kim on 09-21-2024 MCH (RBC) [Entitic mass] 28.0 pg Normal 24.7-34.3 [facility] Comment on above: Performed By: #### C BC #### [address] MCHC Auto (RBC) [Mass/Vol]Or dered By: Gio Kim on 09-21-2024 MCHC (RBC) [Mass/Vol] 33.7 g/dL 32.0-35.0 [facility] MCV [Entitic volume] by Auto mated countOrdered By: Gio Kim on 09-21-2024 MCV (RBC) [Entitic vol] 83.0 fL Normal 80-100 [facility] Comment on above: Performed By: #### C BC #### [place] [address] [place] Monocytes [#/volume] in Bloo d by Automated countOrdered By: Gio Kim on 09-21-2024 Monocytes (Bld) [#/Vol] 0.5 10*3/uL Normal 0.0-0.8 [facility] Comment on above: Performed By: #### C BC #### [facility] [address] [place] [address] [place] Monocytes/100 leukocytes in Blood by Automated countOrdered By: Gio Kim on 09-21-2024 Monocytes/100 WBC (Bld) 6.3 % Normal . [facility] Comment on above: Performed By: #### C BC #### [facility] [address] [place] [address] [place] Neutrophils [#/volume] in Bl ood by Automated countOrdered By: Gio Kim on 09-21-2024 Neutrophils (Bld) [#/Vol] 5.1 10*3/uL Normal 1.8-7.7 [facility] Comment on above: Performed By: #### C BC #### [address] Neutrophils/100 leukocytes i n Blood by Automated countOrdered By: Gio Kim on 09-21-2024 Neutrophils/100 WBC (Bld) 60.9 % Normal . [facility] Comment on above: Performed By: #### C BC #### [address] No Panel InformationOrdered By: Mendez Cardoso on 09-21-2024 Bedside Glucose Comment Glu2: cleaned meter [facility] No Panel InformationOrdered By: Gio Kim on 09-21-2024 Estimated GFR (CKD-EPI) > 60.0 mL/Min [facility] Creatinine Clearance (Chem 134.46 [facility] Nucleated erythrocytes [Pres ence] in Blood by Automated countOrdered By: Gio Kim on 09-21-2024 Nucleated RBC Auto Ql (Bld) 0.1 /100{WBC} 0-0.5 [facility] Platelet mean volume [Entiti c volume] in Blood by Automated countOrdered By: Gio Kim on 09-21-2024 Platelet mean volume (Bld) [Entitic vol] 8.8 fL Normal 6.3-10.7 [facility] Comment on above: Performed By: #### C BC #### [place] [address] [place] Platelets [#/volume] in Bloo d by Automated countOrdered By: Gio Kim on 09-21-2024 Platelets (Bld) [#/Vol] 299 10*3/uL Normal 150-450 [facility] Comment on above: Performed By: #### C BC #### [facility] [address] [place] [address] [place] Potassium [Moles/volume] in Serum or PlasmaOrdered By: Gio Kim on 09-21-2024 Potassium [Moles/Vol] 3.5 mmol/L Normal 3.5-5.1 [facility] Comment on above: Performed By: #### B MP #### [address] Serum or plasma anion gap de terminationOrdered By: Gio Kim on 09-21-2024 Anion gap [Moles/Vol] 12.1 mmol/L Normal 6.0-15.0 [facility] Comment on above: Performed By: #### B MP #### [address] Sodium [Moles/volume] in Ser um or PlasmaOrdered By: Gio Kim on 09-21-2024 Sodium [Moles/Vol] 141 mmol/L Normal 136-145 [facility] Comment on above: Performed By: #### B MP #### [address] Urea nitrogen [Mass/volume] in Serum or PlasmaOrdered By: Gio Kim on 09-21-2024 Urea nitrogen [Mass/Vol] 11 mg/dL Normal 7-25 [facility] Comment on above: Performed By: #### B MP #### [facility] [address] [place] [address] [place] BEDSIDE GLUCOSEon 08-18-2024 Glucose [Mass/Vol] 93 mg/dL Normal 65-99 [facility] Comment on above: Performed By: #### B EDG #### [facility] ([facility]) [address] [place] [address] Glucose [Mass/Vol] 113 mg/dL High 65-99 [facility] Comment on above: Performed By: #### B EDG #### [facility] ([facility]) [address] [place] [address] VIR POCT , URINE (NUCG) on 08-18-2024 Beta HCG ( test) Ql (U) Negative Normal Negative, Indeterminate [facility] Comment on above: Performed By: #### N UCG #### [facility] ([facility]) [address] [place], [place] [id number] VIR Capillary blood glucose savannah urement by glucometer (mass/volume)Ordered By: Mendez Cardoso on 08-10-2024 Glucose [Mass/Vol] 136 mg/dL Normal [facility] Comment on above: Random Glucose Refer ence Range is dependent on time and content of last meal. Glucose of more than 200 mg/dL in a nonstressed, ambulatory subject supports the diagnosis of Diabetes Mellitus. Result Comment: [facility] Glucose Reference Range is dependent on time and content of last meal. Glucose of more than 200 mg/dL in a nonstressed, ambulatory subject supports the diagnosis of Diabetes Mellitus. PERFORMED BY: [facility] [address] [place] [address] PATHOLOGIST GAS FITTER APPRENTICE EVELYN KOVACS M.D. Performed By: #### G LULS #### Point of Care testing , GLUCOSE POCT GLUCOMETERSon 0 08-10-2024 Glucose [Mass/Vol] 136 mg/dL [facility] Comment on above: Random Glucose Refer ence Range is dependent on time and content of last meal. Glucose of more than 200 mg/dL in a nonstressed, ambulatory subject supports the diagnosis of Diabetes Mellitus. [facility] Glucose [Mass/Vol] 85 mg/dL [facility] Comment on above: Random Glucose Refer ence Range is dependent on time and content of last meal. Glucose of more than 200 mg/dL in a nonstressed, ambulatory subject supports the diagnosis of Diabetes Mellitus. [facility] Glucose Glucometer (BldC) [M ass/Vol]Ordered By: Mendez Cardoso on 08-10-2024 Glucose [Mass/Vol] Capillary blood glucose measurement by glucometer (mass/volume) [facility] Comment on above: Random Glucose Refer ence Range is dependent on time and content of last meal. Glucose of more than 200 mg/dL in a nonstressed, ambulatory subject supports the diagnosis of Diabetes Mellitus. Glucose Poct Glucometerson 0 08-10-2024 Glucose [Mass/Vol] 85 mg/dL Normal [facility] Comment on above: Result Comment: [place] [facility] Glucose Reference Range is dependent on time and content of last meal. Glucose of more than 200 mg/dL in a nonstressed, ambulatory subject supports the diagnosis of Diabetes Mellitus. PERFORMED BY: [place] [address] PATHOLOGIST GAS FITTER APPRENTICE EVELYN KOVACS M.D. Performed By: #### G LULS #### Point of Care testing , HCG ( test) IAgus d Ql (U)Ordered By: Hector Barlow on 08-10-2024 HCG ( test) Ql (U) Urine human chorionic gonadotropin (hCG) detection by immunoassay [facility] HCG ( test) Ql (U) Negative [facility] HCG,Urineon 08-10-2024 Beta HCG ( test) Ql (U) Negative Normal [facility] Comment on above: Result Comment: PERF ORMED BY: [place] [address] PATHOLOGIST GAS FITTER APPRENTICE EVELYN KOVACS M.D. Performed By: #### U HCG #### [place] [address] [place] X-ray reportOrdered By: Jay Ornelas on 08-10-2024 Study report [facility] [place] [address] [place] [address] XRay Report Signed Patient: Karma Whitehead MR# : [id number] : 1980 Acct:[id number] Age/Sex: 43 / F ADM Date: 5 Loc: [place] Room: Type: [facility] Attending Dr: Mendez Cardoso DO Copies to: [...] VOLUMES WITH BIBASILAR ATELECTASIS. Impression dictated by: Smiley Talley Jr..ORosy 08/10/2024 10:43 AM Dictation Location: RADIO-PC-22 Transcribed By: PWS 08/10/24 104 Dictated By: Alin Ornelas Jr DO 08/10/24 104 Signed By: 08/10/24 104 [facility] XR chest 1V portableon 08-10 XR chest 1V portable [place] [address] XRay Report Signed Patient: Karma Whitehead MR#: [id number] : 1980 Acct:[id number] Age/Sex: 43 / F ADM Date: 08/10/24 Loc: [place] Room: Type: [facility] Attending Dr: Mendez Cardoso DO Copies to: [...] VOLUMES WITH BIBASILAR ATELECTASIS. Impression dictated by: Smiley Talley Jr..ORosy 08/10/2024 10:43 AM Dictation Location: RADIO-PC-22 Transcribed By: PWS 08/10/24 1043 Dictated By: Alin Ornelas Jr, DO 08/10/24 1042 Signed By: 08/10/24 104 Normal [facility] Glucose (Bld) [Mass/Vol]on 0 08-04-2024 Glucose Blood, POC 131 mg/dL [facility] Interpretation and review of laboratory results Abnormal [facility] HbA1c (Bld) [Mass fraction]o n 08-04-2024 Interpretation and review of laboratory results Normal [facility] Laboratory - Hematology and Cell countson 08-04-2024 HbA1c (Bld) [Mass fraction] 5.8 % [facility] No Panel Informationon 08-04 [facility] Orders Onlyon 08-03-2024 Orders Only [id number] Karma Whitehead 1980 F Date Provider Department Center 08/03/2024 [place] [facility] No family history on file [facility] 36on 07-29-2024 36 Patient is calling back to follow up on [facility] 36 Pt called stating th at she needs an appeal done for stress and echo. today as this is the last day and she is having surgery 08/10 and 08/18. Notes need to be recover from [facility] Abstracton 07-26-2024 Abstract [id number] Karma Whitehead 1980 F Date Provider Department Center 07/26/2024 [id number] ESPINAL HVC CARD [facility] No family history on file [facility] Urinalysis w/ Microon 2024 Amorphous sediment LM Ql (Urine sed) TRACE Abnormal NONE [facility] Comment on above: Performed By: #### L IVP #### [facility] [address] [place] [address] Dryerman/Woman: Domenica Velázquez MD Bacteria TRACE Abnormal NONE [facility] Comment on above: Performed By: #### L IVP #### [facility] [address] [place] [address] Dryerman/Woman: Domenica Velázquez MD Bilirubin, SemiQt,Ur Negative Normal NEG [facility] Comment on above: Performed By: #### L IVP #### [facility] [address] [place], [place] [id number] Dryerman/Woman: Domenica Velázquez MD Blood, Urine Negative Normal NEG [facility] Comment on above: Performed By: #### L IVP #### [facility] [address] [place], [place] [id number] Dryerman/Woman: Domenica Velázquez MD Clarity (U) Clear Normal CLEAR [facility] Comment on above: Performed By: #### L IVP #### [facility] [address] [place], [place] [id number] Dryerman/Woman: Domenica Velázquez MD Color (U) Yellow Normal YEL [facility] Comment on above: Performed By: #### L IVP #### [facility] [address] [place] [address] [place] [place], [place] [phone] Dryerman/Woman: Domenica Velázquez MD Epithelial cells LM Ql (Urine sed) 0 TO 2 Normal 0-25 [facility] Comment on above: Performed By: #### L IVP #### [facility] [address] [place], [place] [phone] Dryerman/Woman: Domenica Velázquez MD Glucose Ql (U) 3+ mg/dL Abnormal NEG [facility] Comment on above: Performed By: #### L IVP #### [facility] [address] [place] [address] [place] [place], [place] [phone] Dryerman/Woman: Domenica Velázquez MD Ketones Ql (U) Negative Normal NEG [facility] Comment on above: Performed By: #### L IVP #### [facility] [address] [place], [place] [phone] Dryerman/Woman: Domenica Velázquez MD Leukocyte esterase Test strip Ql (U) Negative Normal NEG [facility] Comment on above: Performed By: #### L IVP #### [facility] [address] [place], [place] [phone] Dryerman/Woman: Domenica Velázquez MD Mucus Strands TRACE Abnormal NONE [facility] Comment on above: Performed By: #### L IVP #### [facility] [address] [place], [place] [phone] Dryerman/Woman: Domenica Velázquez MD Nitrite,Ur Negative Normal NEG [facility] Comment on above: Performed By: #### L IVP #### [facility] [address] [place] [address] [place], [place] [phone] Dryerman/Woman: Domenica Velázquez MD PH,Ur 6.0 Normal 5.0-9.0 [facility] Comment on above: Performed By: #### L IVP #### [facility] [address] [place] [address] Dr[place], [place] [phone] Dryerman/Woman: Domenica Velázquez MD Protein Ql (U) Negative Normal NEG [facility] Comment on above: Performed By: #### L IVP #### [facility] [address] [place] [address] [place], [place] [phone] Dryerman/Woman: Domenica Velázquez MD Spec. [place],Ur 1.025 High 1.010-1.020 [facility] Comment on above: Performed By: #### L IVP #### [facility] [address] [place] [address] [place] [address] Dryerman/Woman: Domenica Velázquez MD Urine RBC's 0 TO 2 Normal 0-2 [facility] Comment on above: Performed By: #### L IVP #### [facility] [address] [place] [address] Dryerman/Woman: Domenica Velázquez MD Urine WBC's 0 TO 2 Normal 0-5 [facility] Comment on above: Performed By: #### L IVP #### [facility] [address] [place], [place] [phone] Dryerman/Woman: Domenica Velázquez MD Urobilinogen,Ur Normal Normal 0.0-1.0 [facility] Comment on above: Performed By: #### L IVP #### [facility] [address] [place] [address] Dryerman/Woman: Domenica Velázquez MD Urinalysis with Microscopico n 07-16-2024 Amorphous sediment LM Ql (Urine sed) TRACE Abnormal None [facility] Bacteria LM Ql (Urine sed) TRACE Abnormal None [facility] Bilirubin Ql (U) Negative NEGATIVE [facility] Clarity (U) Clear Clear [facility] Color (U) Yellow Yellow [facility] Epithelial cells LM.HPF (Urine sed) [#/Area] 0 TO [address] [facility] Glucose Test strip (U) [Mass/Vol] 3+ Abnormal NEGATIVE mg/dL [facility] Hemoglobin Auto test strip Ql (U) Negative NEGATIVE [facility] Interpretation and review of laboratory results Abnormal [facility] Ketones (U) [Mass/Vol] Negative NEGATIVE mg/dL [facility] Leukocyte esterase Test strip Ql (U) Negative NEGATIVE [facility] Mucus Ql (Urine sed) TRACE Abnormal None [facility] Nitrite Ql (U) Negative NEGATIVE [place] [facility] pH (U) 6 [pH] 5.0 - 9.0 [facility] Protein (U) [Mass/Vol] Negative NEGATIVE mg/dL [facility] RBC LM.HPF (Urine sed) [#/Area] 0 TO 2 [facility] Specific gravity (U) [Rel density] 1.025 High 1.010 - 1.020 [facility] Urobilinogen Qn (U) Normal 0.0 - 1. 0 EU/dL [facility] WBC LM.HPF (Urine sed) [#/Area] 0 TO 2 [facility] XR ANKLE LEFT (MIN 3 VIEWS)o n [...] Faheem Long MD 07/16/24 Final result Normal [facility] XR Ankle - left 3 Viewson 1. No acute abnormality. [facility] EXAMINATION: THREE XRAY [...] demineralized. There are no bony destructive lesions. [facility] Faheem Long MD [...] destructive lesions. IMPRESSION: 1. No acute abnormality. [facility] Radiology Study observation (narrative) [facility] XR HIP BILATERAL W AP PELVIS (2 [...] Faheem Long MD 07/16/24 Final result Normal [facility] XR LUMBAR SPINE (2-3 VIEWS)o n 07-16-2024 [...] Faheem Long MD 07/16/24 Final result Normal [facility] XR Lumbar spine 2 or 3 Views on 07-16-2024 1. Mild multilevel spondylosis. [facility] EXAMINATION: 3 XRAY VIEWS OF THE LUMBAR SPINE 07/16/2024 11:46 am COMPARISON: None. HISTORY: ORDERING SYSTEM PROVIDED HISTORY: back pain TECHNOLOGIST PROVIDED HISTORY: back pain FINDINGS: The 5 lumbar vertebral bodies are in anatomic alignment. The vertebral body heights are maintained. There is mild multilevel spondylosis and facet arthropathy. Status post cholecystectomy. [facility] Faheem Long MD [...] post cholecystectomy. IMPRESSION: 1. Mild multilevel spondylosis. [facility] Radiology Study observation (narrative) [facility] XR Lumbar spine 2 or 3 Views Ordered By: Faheem Long on 07-16-2024 [facility] Work Phone: XR Pelvis and Hip - bilatera l Viewson 07-16-2024 1. No acute abnormality. [facility] EXAMINATION: ONE XRAY [...] lesions. 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 [facility] Faheem Gerard MD - 07/16/2024 EXAMINATION: ONE XRAY VIEW [...] hip osteoarthritis. IMPRESSION: 1. No acute abnormality. [facility] Radiology Study observation (narrative) [facility] Abstracton 07-08-2024 Abstract [id number] RatnaKarma brown 1980 F Date Provider Department Center 07/08/2024 [id number] VASQUEZ [facility]ARD [facility] No family history on file Normal [facility] Insertion/Removal of Contrac eptive Capsuleon 06-30-2024 Bela [...] with steri-strips and pressure bandage applied: yes [facility] Office Visiton 06-20-2024 Follow-up visit [id number] Marco AKarma Banegsa 1980 F Date Provider Department Center 06/20/2024 [id number] KENZIE [facility] CARD [facility] No family history on file Level of Service:06636 AR OFFICE/OUTPATIENT NEW LOW MDM 30 MINUTES Normal [facility] IGP,APTIMA HPV,AGE GDLNon AGE GDLN ACOG TESTING Note . [facility] Comment on above: TESTS RESULT FLAG UN ITS REF RANGE LAB Clinician Provided Cytology Information Source.............Cervix;Endocervix No. of containers..01 ThinPrep Vial Age Algo ACOG Rosana... 30-65 01 FLAG LEGEND: L-Low Normal,H-High Normal,LL-Alert Low,HH-Alert High <-Panic Low,>-Panic High,A-Abnormal,AA-Critical Abnormal Performed at: 01 =[facility] [address] [place] [address] Kristin Matute MD, HPV APTIMA Negative Negative [facility] Comment on above: This nucleic acid am plification test detects fourteen high- risk HPV types (16,18,31,33,35,39,45,51,52,56,58,59,66,68) without differentiation. Performed at: = - [facility], [place] [id number] Dryerman/Woman: Kristin Matute MD, Phone: [phone] Performed at: - [facility] [id number] Dryerman/Woman: Kristin Matute MD, Phone: [phone] IGP, APTIMA HPV, RFX 16/18,45 Note . [facility] Comment on above: TESTS RESULT FLAG U NITS REF RANGE LAB DIAGNOSIS: 02 NEGATIVE FOR INTRAEPITHELIAL LESION OR MALIGNANCY. THIS SPECIMEN WAS RESCREENED PART OF OUR QUALITY TECHNICIAN FIBERGLASS PROGRAM. Specimen adequacy: 02 Satisfactory for evaluation. Endocervical and/or squamous metaplastic cells (endocervical component) are present. Performed by: Aiyana Tejada, Mill Oiler ([facility]) QC reviewed by: Aiyana Valadez, Mill Oiler ([facility]) . 02 Note: Note 02 The Pap [...] High,A-Abnormal,AA-Critical Abnormal Performed at: 02 WB [facility] [address] [address] Kristin Matute MD, BRUSH-SPATULA CERVIX ENDOCERVIX [facility] MM TOMOSYNTHESIS SCREENING B Ion 05-27-2024 [place] [address] Mammography Report Signed Patient: KARAM WHITEHEAD MR#: [id number] : 1980 Acct:[id number] Age/Sex: 43 / F ADM Date: 05/27/24 Loc: MAMMO Attending Dr: Roel Garber D.O. Ordering Physician: Roel Garber D.O. Results: Date of Service: 05/27/24 Follow Up: Procedure(s): MM tomosynthesis screening BI Accession Number(s): [id number] cc: Roel Garber D.O.; Loreto Mcneal NP Patient Name: KARMA WHITEHEAD MR#: [id number] : 1980 Exam Date: 05/27/2024 Ordering Doctor: [...] Treatments None Family Cancers None LOCATION: The [facility] BREAST COMPOSITION: There are scattered [...] Signed By: 05/27/24 1649 DD/ 47 TD/TT: Manufacturing Test Engineer: [facility] Radiology, Radiologist, MD - 05/27/2024 [place] [address] Mammography Report Signed Patient: KARMA WHITEHEAD MR#: [id number] : 1980 Acct:[id number] Age/Sex: 43 / F ADM Date: 05/27/24 Loc: MAMMO Attending Dr: Roel Garber D.O. Ordering Physician: Roel Garber D.O. Results: Date of Service: 05/27/24 Follow Up: Procedure(s): MM tomosynthesis screening BI Accession Number(s): [id number] cc: Roel Garber D.O.; Loreto Mcneal NP Patient Name: KARMA WHITEHEAD MR#: [id number] : 1980 Exam Date: 05/27/2024 Ordering Doctor: [...] Treatments None Family Cancers None LOCATION: The [facility] BREAST COMPOSITION: There are scattered [...] D.O. Signed By: 05/27/241648 DD/ 47 TD/TT: Manufacturing Test Engineer: [facility] Radiology Study observation (narrative) [facility] MM TOMOSYNTHESIS SCREENING B IOrdered By: Radiologist Radiology on 05-27-2024 [facility] Work Phone: Urinalysis macro (dipstick) panel (U)on 05-26-2024 Bilirubin, UA Negative Negative - 4(70) +++ mg/dL [facility] Blood, UA Negative Negative - 50 Donta/mcL [facility] Clarity, UA Clear [facility] Color, UA Yellow [facility] Glucose, UA Positive Negative - 1999(110) ++++ mg/dL [facility] Comment on above: 500 Interpretation and review of laboratory results Abnormal [facility] Ketones, UA Negative Negative - 160(16) ++++ mg/dL [facility] Leukocytes, UA Negative Negative - 500+++ Quique/mcL [facility] Nitrite, UA Negative Negative - Positive [facility] pH, UA 6 5 - 9 [facility] Protein, UA Negative Negative - 2000(20) ++++ mg/dL [facility] Spec Grav, UA 1.01 1 - 1.03 [facility] Urobilinogen, UA 0.2 0.2 - 12 mg/dL [facility] MLR HEMOGLOBIN A1Con 025 Glucose [Mass/Vol] 123 mg/dL [facility] HbA1c (Bld) [Mass fraction] 5.9 % 4.5 - 6.2 % [facility] Comment on above: ADA RECOMMENDED LIMI T 4.0 - 6.0 ADA THERAPEUTIC TARGET < 7.0 ACTION SUGGESTED > 7.0 [facility] Glucose (Bld) [Mass/Vol]on 0 04-07-2024 Glucose Blood, POC 115 mg/dL [facility] Laboratory - Hematology and Cell countson 04-07-2024 HbA1c (Bld) [Mass fraction] 5.8 % [facility] No Panel Informationon 04-07 Interpretation and review of laboratory results Normal [facility] Strep A Culture Onlyon 03-09 Strep A Culture Only No Group A Beta Streptococcus Isolated 2 Days PERFORMED BY: [facility] [address] [place] [address] PATHOLOGIST GAS FITTER APPRENTICE DALIA SEARS M.D. Normal [facility] Comment on above: Performed By: #### C USTA #### [facility] [address] Streptococcus pyogenes cultu reOrdered By: Mio Marroquin on 03-09-2024 S. pyogenes Org specific cx Ql (Unsp spec) Streptococcus pyogenes culture [facility] CBC with Auto Differentialon 01-13-2024 [...] mass] 28.5 pg 25.2 - 33.5 pg [facility] MCHC (RBC) [Mass/Vol] 32.3 g/dL 28.4 - 34.8 g/dL [facility] MCV (RBC) [Entitic vol] 88.2 fL 82.6 - 102.9 fL [facility] Monocytes/100 WBC (Bld) 8 % 3 - 12 % [facility] Monocytes/100 WBC (Bld) 1.12 % [facility] Neutrophils/100 WBC (Bld) 68 % High 36 - 65 % [facility] Nucleated RBC/100 WBC (Bld) [Ratio] 0.0 % 0.0 per 100 WBC [facility] Platelet mean volume (Bld) [Entitic vol] 10.0 fL 8.1 - 13.5 fL [facility] Platelets (Bld) [#/Vol] 452 10*3/uL [facility] RBC (Bld) [#/Vol] 4.91 10*6/uL 3.95 - 5.1 1 m/uL [facility] Segmented neutrophils/100 WBC (Bld) 9.08 % High [facility] WBC other (Bld) [#/Vol] 13.4 High [facility] CBC with Diffon 01-13-2024 Abs. Basophil 0.06 k/uL Normal 0.00-0.20 [facility] Comment on above: Performed By: #### C MANUELA, CP #### [facility] [address] [place] [address] Dryerman/Woman: Domenica Velázquez MD Abs.Imm.Granulocyte 0.10 k/uL Normal 0.00-0.30 [facility] Comment on above: Performed By: #### C MANUELA, CP #### [facility] [address] [place] [address] Dryerman/Woman: Domenica Velázquez MD Abs.Neutrophil (Seg) 9.08 k/uL High 1.50-8.10 [facility] Comment on above: Performed By: #### C MANUELA, CP #### [facility] [address] [place], [place] 448[address]83 Dryerman/Woman: Domenica Velázquez MD Basophils/100 WBC (Bld) 0 % Normal 0-2 [facility] Comment on above: Performed By: #### C DP, CP #### [facility] [address] [place], [place] 7488183 Dryerman/Woman: Domenica Velázquez MD Eosinophils (Bld) [#/Vol] 0.10 10*3/uL Normal 0.00-0.44 [facility] Comment on above: Performed By: #### C DP, CP #### [address] [place], [place] 2197183 Dryerman/Woman: Domenica Velázquez MD Eosinophils/100 WBC (Bld) 1 % Normal 1-4 [facility] Comment on above: Performed By: #### C DP, CP #### [address] [place], [place] [address]183 Dryerman/Woman: Domenica Velázquez MD Erythrocyte distribution width (RBC) [Ratio] 13.6 % Normal 11.8-14.4 [facility] Comment on above: Performed By: #### C DP, CP #### [address] [place], [place] [address]83 Dryerman/Woman: Domenica Velázquez MD Hematocrit (Bld) [Volume fraction] 43.3 % Normal 36.3-47.1 [facility] Comment on above: Performed By: #### C DP, CP #### [address] [place], [place] [address]83 Dryerman/Woman: Domenica Velázquez MD Hemoglobin (Bld) [Mass/Vol] 14.0 g/dL Normal 11.9-15.1 [facility] Comment on above: Performed By: #### C DP, CP #### [address] [place], [place] [address]45[address] Dryerman/Woman: Domenica Velázquez MD Immature granulocytes/100 WBC (Bld) 1 % High 0 [facility] Comment on above: Performed By: #### C DP, CP #### [facility] [address] [place] [address]83 Dryerman/Woman: Domenica Velázquez MD Lymphocytes (Bld) [#/Vol] 2.98 10*3/uL Normal 1.10-3.70 [facility] Comment on above: Performed By: #### C DP, CP #### [facility] [address] [place] [address] [place] [address] Dryerman/Woman: Domenica Velázquez MD Lymphocytes/100 WBC (Bld) 22 % Low 24-43 [facility] Comment on above: Performed By: #### C DP, CP #### [address] [place], [facility] Dryerman/Woman: Domenica Velázquez MD MCH (RBC) [Entitic mass] 28.5 pg Normal 25.2-33.5 [facility] Comment on above: Performed By: #### C DP, CP #### [address] [place] [address] Dryerman/Woman: Domenica Velázquez MD MCHC (RBC) [Mass/Vol] 32.3 g/dL Normal 28.4-34.8 [facility] Comment on above: Performed By: #### C DP, CP #### [address] [place], [place] [address]83 Dryerman/Woman: Domenica Velázquez MD MCV (RBC) [Entitic vol] 88.2 fL Normal 82.6-102.9 [facility] Comment on above: Performed By: #### C DP, CP #### [address] [place], [place] 245[address]83 Dryerman/Woman: Domenica Velázquez MD Monocytes (Bld) [#/Vol] 1.12 10*3/uL Normal 0.10-1.20 [facility] Comment on above: Performed By: #### C DP, CP #### [facility] [address] [place], [place] [phone] Dryerman/Woman: Domenica Velázquez MD Monocytes/100 WBC (Bld) 8 % Normal 3-12 [facility] Comment on above: Performed By: #### C DP, CP #### [facility] [address] [place], [place] [phone] Dryerman/Woman: Domenica Velázquez MD Neutrophil (Seg) 68 % High 36-65 [facility] Comment on above: Performed By: #### C DP, CP #### [address] [place] [address] Dryerman/Woman: Domenica Velázquez MD NRBC Automated 0.0 per 100 WBC Normal 0.0 [facility] Comment on above: Performed By: #### C DP, CP #### [address] [place] [address] Dryerman/Woman: Domenica Velázquez MD Platelet mean volume (Bld) [Entitic vol] 10.0 fL Normal 8.1-13.5 [facility] Comment on above: Performed By: #### C DP, CP #### [address] [place] [address] Dryerman/Woman: Domenica Velázquez MD Platelets (Bld) [#/Vol] 452 10*3/uL Normal 138-453 [facility] Comment on above: Performed By: #### C DP, CP #### [address] [place] [address] Dryerman/Woman: Domenica Velázquez MD RBC (Bld) [#/Vol] 4.91 10*6/uL Normal 3.95-5.11 [facility] Comment on above: Performed By: #### C DP, CP #### [facility] [address] [place] [address] Dryerman/Woman: Domenica Velázquez MD WBC (Bld) [#/Vol] 13.4 10*3/uL High 3.5-11.3 [facility] Comment on above: Performed By: #### C DP, CP #### [facility] [address] [place], [place] [phone] Dryerman/Woman: Domenica Velázquez MD [facility] Albumin [Mass/Vol] 4.4 g/dL 3.5 - 5.2 g/dL [facility] Albumin/Globulin [Mass ratio] 1.3 {ratio} 1.0 - 2.5 [facility] ALP [Catalytic activity/Vol] 87 U/L 35 - 104 U/L [facility] ALT [Catalytic activity/Vol] 25 U/L 10 - 35 U/L [facility] Anion gap [Moles/Vol] 11 mmol/L 9 - 16 mmol/L [facility] AST [Catalytic activity/Vol] 17 U/L 10 - 35 U/L [facility] Bilirubin [Mass/Vol] mg/dL 0.00 - 1.20 mg/dL [facility] Calcium [Mass/Vol] 9.9 mg/dL 8.6 - 10. 4 mg/dL [facility] Chloride [Moles/Vol] 101 mmol/L 98 - 10 7 mmol/L [facility] CO2 [Moles/Vol] 25 mmol/L 20 - 31 mmol/L [facility] Creatinine [Mass/Vol] 0.7 mg/dL 0.50 - 0.90 mg/dL [facility] Est, Glom Filt Rate - PINF [facility] Comment on above: These results are not [...] 112 mg/dL High 74 - 99 mg/dL [facility] Interpretation and review of laboratory results Abnormal [facility] Potassium [Moles/Vol] 4.2 mmol/L 3.7 - 5.3 mmol/L [facility] Protein [Mass/Vol] 7.8 g/dL 6.6 - 8.7 g/dL [facility] Sodium [Moles/Vol] 137 mmol/L 136 - 145 mmol/L [facility] Urea nitrogen [Mass/Vol] 24 mg/dL High 6 - 20 mg/dL [facility] Urea nitrogen/Creatinine [Mass ratio] 34 mg/mg High 9 - 20 [facility] Comp Metabolic Profon 2023 Albumin [Mass/Vol] 4.4 g/dL Normal 3.5-5.2 [facility] Comment on above: Performed By: #### C DP, CP #### [facility] [address] [place] [address] Dr[place], [place] [id number] Dryerman/Woman: Domenica Velázquez MD Albumin/Glob Ratio 1.3 Normal 1.0-2.5 [facility] Comment on above: Performed By: #### C DP, CP #### [facility] [address] [place], [place] [phone] Dryerman/Woman: Domenica Velázquez MD Alkaline Phos 87 U/L Normal 35-104 [facility] Comment on above: Performed By: #### C DP, CP #### [facility] [address] [place], [place] [phone] Dryerman/Woman: Domenica Velázquez MD ALT [Catalytic activity/Vol] 25 U/L Normal 10-35 [facility] Comment on above: Performed By: #### C DP, CP #### [facility] [address] [place], [place] 1487483 Dryerman/Woman: Domenica Velázquez MD Anion gap [Moles/Vol] 11 mmol/L Normal 9-16 [facility] Comment on above: Performed By: #### C DP, CP #### [facility] [address] [place], [place] [address]83 Dryerman/Woman: Domenica Velázquez MD AST [Catalytic activity/Vol] 17 U/L Normal 10-35 [facility] Comment on above: Performed By: #### C DP, CP #### [facility] [address] [place], [place] [phone] Dryerman/Woman: Domenica Velázquez MD Bilirubin [Mass/Vol] mg/dL Normal 0.00-1.20 [facility] Comment on above: Performed By: #### C DP, CP #### [facility] [address] [place], [place] [address]83 Dryerman/Woman: Domenica Velázquez MD BUN/CRE Ratio 34 High 9-20 [facility] Comment on above: Performed By: #### C DP, CP #### [facility] [address] [place], [place] [phone] Dryerman/Woman: Domenica Velázquez MD Calcium [Mass/Vol] 9.9 mg/dL Normal 8.6-10.4 [facility] Comment on above: Performed By: #### C DP, CP #### [facility] [address] [place], [place] [address] Dryerman/Woman: Domenica Velázquez MD Chloride [Moles/Vol] 101 mmol/L Normal 98-107 [facility] Comment on above: Performed By: #### C DP, CP #### [facility] [address] [place], [place] 389[address]83 Dryerman/Woman: Domenica Velázquez MD CO2 [Moles/Vol] 25 mmol/L Normal 20-31 [facility] Comment on above: Performed By: #### C DP, CP #### [facility] [address] [place], [place] [phone] Dryerman/Woman: Domenica Velázquez MD Creatinine [Mass/Vol] 0.7 mg/dL Normal 0.50-0.90 [facility] Comment on above: Performed By: #### C MANUELA, CP #### [facility] [address] [place] [address] Dryerman/Woman: Domenica Velázquez MD GFR/1.73 sq M.predicted among non-blacks MDRD (S/P/Bld) [Vol rate/Area] mL/min/{1.73_m2} Normal >60 [facility] Comment on above: Result Comment: These [...] Performed By: #### C DP, CP #### [facility] [address] [place] [address] [place] [address] Dryerman/Woman: Domenica Velázquez MD Glucose [Mass/Vol] 112 mg/dL High 74-99 [facility] Comment on above: Performed By: #### C DP, CP #### [address] [place], [place] 2267383 Dryerman/Woman: Domenica Velázuqez MD Potassium [Moles/Vol] 4.2 mmol/L Normal 3.7-5.3 [facility] Comment on above: Performed By: #### C DP, CP #### [facility] [address] [place] [address] Dryerman/Woman: Domenica Velázquez MD Protein [Mass/Vol] 7.8 g/dL Normal 6.6-8.7 [facility] Comment on above: Performed By: #### C MANUELA, CP #### [facility] [address] [place] [address] Dryerman/Woman: Domenica Velázquez MD Sodium [Moles/Vol] 137 mmol/L Normal 136-145 [facility] Comment on above: Performed By: #### C DP, CP #### [facility] [address] [place] [address] Dryerman/Woman: Domenica Velázquez MD Urea nitrogen [Mass/Vol] 24 mg/dL High 6-20 [facility] Comment on above: Performed By: #### C DP, CP #### [facility] [address] [place] [address] Dryerman/Woman: Domenica Velázquez MD Microscopic Urinalysison Bacteria LM Ql (Urine sed) 1+ Abnormal None [facility] Epithelial cells LM.HPF (Urine sed) [#/Area] 0 TO 2 [facility] Interpretation and review of laboratory results Abnormal [facility] Mucus Ql (Urine sed) TRACE Abnormal None [facility] RBC LM.HPF (Urine sed) [#/Area] 0 TO 2 [facility] WBC LM.HPF (Urine sed) [#/Area] None [facility] TSHon 01-13-2024 TSH Qn 1.57 m[IU]/L [facility] Thyroid Stim. Horm.on 2023 Thyroid Stim. Horm. 1.57 uIU/mL Normal 0.27-4.20 [facility] Comment on above: Performed By: #### T SH #### [facility] [address] [place] [address] Dryerman/Woman: Domenica Velázquez MD UA w/Reflex Cultureon 2023 Bilirubin, SemiQt,Ur Negative Normal NEG [facility] Comment on above: Performed By: #### L IVP #### [facility] [address] [place] [address] Dryerman/Woman: Domenica Velázquez MD Blood, Urine Negative Normal NEG [facility] Comment on above: Performed By: #### L IVP #### [facility] [address] [place] [address] [place] [place], [place] [id number] Dryerman/Woman: Domenica Velázquez MD Clarity (U) Clear Normal CLEAR [facility] Comment on above: Performed By: #### L IVP #### [facility] [address] [place] [address] [place] [place], [place] [id number] Dryerman/Woman: Domenica Velázquez MD Color (U) Yellow Normal YEL [facility] Comment on above: Performed By: #### L IVP #### [address] [place], [place] [phone] Dryerman/Woman: Domenica Velázquez MD Glucose Ql (U) 3+ mg/dL Abnormal NEG [facility] Comment on above: Performed By: #### L IVP #### [address] [place], [place] [phone] Dryerman/Woman: Domenica Velázquez MD Ketones Ql (U) Negative Normal NEG [facility] Comment on above: Performed By: #### L IVP #### [address] [place] [address] Dryerman/Woman: Domenica Velázquez MD Leukocyte esterase Test strip Ql (U) Negative Normal NEG [facility] Comment on above: Performed By: #### L IVP #### [facility] [address] [place] [address] [place] [place], [place] [phone] Dryerman/Woman: Domenica Velázquez MD Nitrite,Ur Negative Normal NEG [facility] Comment on above: Performed By: #### L IVP #### [address] [place] [address] Dryerman/Woman: Domenica Velázquez MD PH,Ur 6.0 Normal 5.0-9.0 [facility] Comment on above: Performed By: #### L IVP #### [address] [place] [id number] Dryerman/Woman: Domenica Velázquez MD Protein Ql (U) Negative Normal NEG [facility] Comment on above: Performed By: #### L IVP #### [facility] [address] [place] [address] Dryerman/Woman: Domenica Velázquez MD Spec. [place],Ur >1.030 High 1.010-1.020 [facility] Comment on above: Performed By: #### L IVP #### [facility] [address] [place], [place] 5939683 Dryerman/Woman: Domenica Velázquez MD Urobilinogen,Ur Normal Normal 0.0-1.0 [facility] Comment on above: Performed By: #### L IVP #### [facility] [address] [place], [place] 7442083 Dryerman/Woman: Domenica Velázquez MD Urinalysis with Reflex to Cu ltureon 01-13-2024 Bilirubin Ql (U) Negative NEGATIVE [facility] Clarity (U) Clear Clear [facility] Color (U) Yellow Yellow [facility] Glucose Test strip (U) [Mass/Vol] 3+ Abnormal NEGATIVE mg/dL [facility] Hemoglobin Auto test strip Ql (U) Negative NEGATIVE [facility] Interpretation and review of laboratory results Abnormal [facility] Ketones (U) [Mass/Vol] Negative NEGATIVE mg/dL [facility] Leukocyte esterase Test strip Ql (U) Negative NEGATIVE [facility] Nitrite Ql (U) Negative NEGATIVE [facility] pH (U) 6.0 [pH] 5.0 - 9.0 [facility] Protein (U) [Mass/Vol] Negative NEGATIVE mg/dL [facility] Specific gravity (U) [Rel density] High 1.010 - 1.020 [facility] Urobilinogen Qn (U) Normal 0.0 - 1. 0 EU/dL [facility] Urinalysis,Microon 4 Bacteria 1+ Abnormal NONE [facility] Comment on above: Performed By: #### L IVP #### [facility] [address] [place], [place] [phone] Dryerman/Woman: Domenica Velázquez MD Epithelial cells LM Ql (Urine sed) 0 TO 2 Normal 0-25 [facility] Comment on above: Performed By: #### L IVP #### [facility] [address] [place], [place] 9809083 Dryerman/Woman: Domenica Velázquez MD Mucus Strands TRACE Abnormal NONE [facility] Comment on above: Performed By: #### L IVP #### [facility] [address] [place], [place] 9275983 Dryerman/Woman: Domenica Velázquez MD Urine RBC's 0 TO 2 Normal 0-2 [facility] Comment on above: Performed By: #### L IVP #### [facility] [address] [place], [place] [phone] Dryerman/Woman: Domenica Velázquez MD Urine WBC's None Normal 0-5 [facility] Comment on above: Performed By: #### L IVP #### [facility] [address] [place], [place] 9162383 Dryerman/Woman: Domenica Velázquez MD BASIC METABOLIC PANLon 12-20 Anion gap [Moles/Vol] 10 mmol/L Normal 5-15 [facility] Comment on above: Performed By: #### C BCA, BMP, FEPR, 2276-4 #### [facility] ([id number]) [address], [address] [place] [address] Calcium [Mass/Vol] 8.9 mg/dL Normal 8.5-10.5 [facility] Comment on above: Performed By: #### C BCA, BMP, FEPR, 2276-4 #### [facility] ([id number]) [address], [address] [place] [address] Chloride [Moles/Vol] 106 mmol/L Normal 98-109 [facility] Comment on above: Performed By: #### C BCA, BMP, FEPR, 6-4 #### [facility] ([id number]) [address] [address] [place] [address] CO2 [Moles/Vol] 22 mmol/L Normal 22-32 [facility] Comment on above: Performed By: #### C BCA, BMP, FEPR, 2275-4 #### [facility] ([id number]) [address] [place] [address] Creatinine [Mass/Vol] 0.70 mg/dL Normal 0.40-1.00 [facility] Comment on above: Result Comment: METH OD TRACEABLE TO IDMS STANDARD Performed By: #### C BCA, BMP, FEPR, 2275-4 #### [facility] ([id number]) [address], [address] [place] [address] eGFR (CKD-EPI) NON-RACE DEPENDENT >90 Normal >59 [facility] Comment on above: Result Comment: Reported eGFR is based on the CKD-EPI 2020 equation that does not use a race coefficient. Performed By: #### C BCA, BMP, FEPR, 2275-4 #### [facility] ([id number]) [address] [address] [place] [address] Glucose [Mass/Vol] 89 mg/dL Normal 65-99 [facility] Comment on above: Performed By: #### C BCA, BMP, FEPR, 6-4 #### [facility] ([id number]) [address] [address] [place] [address] Potassium [Moles/Vol] 4.2 mmol/L Normal 3.5-5.0 [facility] Comment on above: Performed By: #### C BCA, BMP, FEPR, 4 #### [facility] ([id number]) [address] [place] [address] Sodium [Moles/Vol] 138 mmol/L Normal 134-146 [facility] Comment on above: Performed By: #### C BCA, BMP, FEPR, 2275- #### [facility] ([id number]) [address] [place] [address] Urea nitrogen [Mass/Vol] 18 mg/dL Normal 5-23 [facility] Comment on above: Performed By: #### C BCA, BMP, FEPR, 2275-4 #### [facility] ([id number]) [address] [address] CBC AND AUTO DIFFon 10-21-20 24 ABSOLUTE BASOPHIL 0.0 X10E9/L Normal 0.0-0.2 [facility] Comment on above: Performed By: #### C BCA, BMP, FEPR, 2275-06 #### [facility] ([id number]) [address] [place] [address] ABSOLUTE NEUTROPHIL 5.7 X10E9/L Normal 1.5-6.6 [facility] Comment on above: Performed By: #### C BCA, BMP, FEPR, 2275-4 #### [facility] ([id number]) [address] [place] [address] Basophils/100 WBC (Bld) 0.4 % Normal [facility] Comment on above: Performed By: #### C BCA, BMP, FEPR, 2275- #### [facility] ([id number]) [address] [address] Eosinophils (Bld) [#/Vol] 0.1 10*3/uL Normal 0.0-0.4 [facility] Comment on above: Performed By: #### C BCA, BMP, FEPR, 2275-06 #### [facility] ([id number]) [address] [place] [address] Eosinophils/100 WBC (Bld) 1.2 % Normal [facility] Comment on above: Performed By: #### C BCA, BMP, FEPR, 2275- #### [facility] ([id number]) [address] [place] [address] Erythrocyte distribution width (RBC) [Ratio] 14.4 % Normal 11.5-15.0 [facility] Comment on above: Performed By: #### C BCA, BMP, FEPR, 2275-06 #### [facility] ([id number]) [address] [place] [address] Hematocrit (Bld) [Volume fraction] 37.4 % Normal 35-47 [facility] Comment on above: Performed By: #### C BCA, BMP, FEPR, 2275-06 #### [facility] ([id number]) [address] [place] [address] Hemoglobin (Bld) [Mass/Vol] 12.4 g/dL Normal 11.7-15.5 [facility] Comment on above: Performed By: #### C BCA, BMP, FEPR, 2275- #### [facility] ([id number]) [address] [place] [address] Lymphocytes (Bld) [#/Vol] 2.4 10*3/uL Normal 1.0-3.5 [facility] Comment on above: Performed By: #### C BCA, BMP, FEPR, 2275- #### [facility] ([id number]) [address] [place] [address] Lymphocytes/100 WBC (Bld) 28.1 % Normal [facility] Comment on above: Performed By: #### C BCA, BMP, FEPR, 2275-06 #### [facility] ([id number]) [address], [address] [place] [address] MCH (RBC) [Entitic mass] 28.8 pg Normal 27-34 [facility] Comment on above: Performed By: #### C BCA, BMP, FEPR, 2275- #### [facility] ([id number]) [address], [address] [place] [address] MCHC (RBC) [Mass/Vol] 33.1 g/dL Normal 32-36 [facility] Comment on above: Performed By: #### C BCA, BMP, FEPR, 2275- #### [facility] ([id number]) [address], [facility] [address] [place] [address] MCV (RBC) [Entitic vol] 87 fL Normal 80-100 [facility] Comment on above: Performed By: #### C BCA, BMP, FEPR, 2275-06 #### [facility] ([id number]) [address], [facility] [address] [place] [address] Monocytes (Bld) [#/Vol] 0.3 10*3/uL Normal 0-0.9 [facility] Comment on above: Performed By: #### C BCA, BMP, FEPR, 2275-4 #### [facility] ([id number]) [address], [facility] [address] [place] [address] Monocytes/100 WBC (Bld) 3.0 % Normal [facility] Comment on above: Performed By: #### C BCA, BMP, FEPR, 2275- #### [facility] ([id number]) [address] [place] [address] Neutrophils/100 WBC (Bld) 67.3 % Normal [facility] Comment on above: Performed By: #### C BCA, BMP, FEPR, 2275-06 #### [facility] ([id number]) [address] [place] [address] Platelet mean volume (Bld) [Entitic vol] 8.8 fL Normal 7-12 [facility] Comment on above: Performed By: #### C BCA, BMP, FEPR, 2275-4 #### [facility] ([id number]) [address] [facility] [address] [place] [address] Platelets (Bld) [#/Vol] 325 10*3/uL Normal 150-450 [facility] Comment on above: Performed By: #### C BCA, BMP, FEPR, 2275-4 #### [facility] ([id number]) [address] [facility] [address] [place] [address] RBC COUNT 4.31 X10E12/L Normal 3.80-5.20 [facility] Comment on above: Performed By: #### C BCA, BMP, FEPR, 2275-4 #### [facility] ([id number]) [address] [place] [address] WBC (Bld) [#/Vol] 8.4 10*3/uL Normal 4.0-11.0 [facility] Comment on above: Performed By: #### C BCA, BMP, FEPR, 2275-4 #### [facility] ([id number]) [address] [place] [address] FERRITINon 12-21-2023 Ferritin [Mass/Vol] 195 ng/mL Normal 11-307 [facility] Comment on above: Performed By: #### C BCA, CMP, 17931-5, TSHR #### [facility] ([id number]) [address] [place] [address] IRON PROFILEon 12-21-2023 Iron [Mass/Vol] 53 ug/dL Normal 50-170 [facility] Comment on above: Performed By: #### C BCA, BMP, FEPR, 2275-4 #### [facility] ([id number]) [address], [address] [place] [address] IRON BINDING 374 ug/dL Normal 250-425 [facility] Comment on above: Performed By: #### C BCA, BMP, FEPR, 2276-4 #### [facility] ([id number]) [address] [place] [address] IRON SATURATION 14 % SATURATION Low 15-50 [facility] Comment on above: Performed By: #### C BCA, BMP, FEPR, 2276-4 #### [facility] ([id number]) [address] [place] [address] CT ABDOMEN PELVIS W IV CONTR Dar [...] significant stool or gas noted. Evidence of [id number] diverticulosis of proximal sigmoid colon and descending colon without evidence of diverticulitis. No evidence of colitis. No pericolic inflammatory change. Pelvis: No abnormal fluid collection or inflammatory process in the pelvis. No pelvic mass or pathologic lymphadenopathy. Normal uterus. No adnexal mass. Peritoneum/Retroperito neum: No periaortic or mesenteric pathologic lymphadenopathy. No [...] Zoë Nicole MD 10/07/23 Final result Normal [facility] Comp Metabolic Profon 2023 Albumin [Mass/Vol] 4.1 g/dL Normal 3.5-5.2 [facility] Comment on above: Performed By: #### L IVP #### [facility] [address] [place], [place] 7070383 Dryerman/Woman: Domenica Velázquez MD Albumin/Glob Ratio 1.4 Normal 1.0-2.5 [facility] Comment on above: Performed By: #### L IVP #### [facility] [address] [place], [place] 429[address]83 Dryerman/Woman: Domenica Velázquez MD Alkaline Phos 85 U/L Normal 35-104 [facility] Comment on above: Performed By: #### L IVP #### [facility] [address] [place], [place] [address]83 Dryerman/Woman: Domenica Velázquez MD ALT [Catalytic activity/Vol] 12 U/L Normal 5-33 [facility] Comment on above: Performed By: #### L IVP #### [facility] [address] [place], [place] 2230383 Dryerman/Woman: Domenica Velázquez MD Anion gap [Moles/Vol] 11 mmol/L Normal 9-17 [facility] Comment on above: Performed By: #### L IVP #### [facility] [address] [place], [place] [phone] Dryerman/Woman: Domenica Velázquez MD AST [Catalytic activity/Vol] 14 U/L Normal <32 [facility] Comment on above: Performed By: #### L IVP #### [facility] [address] [place], [place] [phone] Dryerman/Woman: Domenica Velázquez MD Bilirubin [Mass/Vol] 0.2 mg/dL Low 0.3-1.2 [facility] Comment on above: Performed By: #### L IVP #### [facility] [address] [place], [place] [address]1983 Dryerman/Woman: Domenica Velázquez MD BUN/CRE Ratio 30 High 9-20 [facility] Comment on above: Performed By: #### L IVP #### [facility] [address] [place] [address] Dryerman/Woman: Domenica Velázquez MD Calcium [Mass/Vol] 8.8 mg/dL Normal 8.6-10.4 [facility] Comment on above: Performed By: #### L IVP #### [facility] [address] [place] [address] Dryerman/Woman: Domenica Velázquez MD Chloride [Moles/Vol] 103 mmol/L Normal 98-107 [facility] Comment on above: Performed By: #### L IVP #### [address] [place] [address] Dryerman/Woman: Domenica Velázquez MD CO2 [Moles/Vol] 25 mmol/L Normal 20-31 [facility] Comment on above: Performed By: #### L IVP #### [address] [place] [address] Dryerman/Woman: Domenica Velázquez MD Creatinine [Mass/Vol] 0.6 mg/dL Normal 0.5-0.9 [facility] Comment on above: Performed By: #### L IVP #### [address] [place] [address] Dryerman/Woman: Domenica Velázquez MD GFR/1.73 sq M.predicted among non-blacks MDRD (S/P/Bld) [Vol rate/Area] mL/min/{1.73_m2} Normal >60 [facility] Comment on above: Result Comment: These [...] secretion. Performed By: #### L IVP #### [facility] [address] [place], [place] [address] Dryerman/Woman: Domenica Velázquez MD Glucose [Mass/Vol] 92 mg/dL Normal 70-99 [facility] Comment on above: Performed By: #### L IVP #### [facility] [address] [place], [place] [phone] Dryerman/Woman: Domenica Velázquez MD Potassium [Moles/Vol] 3.6 mmol/L Low 3.7-5.3 [facility] Comment on above: Performed By: #### L IVP #### [address] [place], [place] 5038983 Dryerman/Woman: Domenica Velázquez MD Protein [Mass/Vol] 7.0 g/dL Normal 6.4-8.3 [facility] Comment on above: Performed By: #### L IVP #### [facility] [address] [place] [address] [place], [place] [phone] Dryerman/Woman: Domenica Velázquez MD Sodium [Moles/Vol] 139 mmol/L Normal 135-144 [facility] Comment on above: Performed By: #### L IVP #### [facility] [address] [place] [address] Dr[place], [place] [phone] Dryerman/Woman: Domenica Velázquez MD Urea nitrogen [Mass/Vol] 18 mg/dL Normal 6-20 [facility] Comment on above: Performed By: #### L IVP #### [facility] [address] [place], [place] 39[address]83 Dryerman/Woman: Domenica Velázquez MD Lipaseon 10-07-2023 Lipase [Catalytic activity/Vol] 28 U/L Normal 13-60 [facility] Comment on above: Performed By: #### L IVP #### [facility] [address] [place], [place] [phone] Dryerman/Woman: Domenica Velázquez MD Troponinon 10-07-2023 Troponin, High Sens <6 Normal 0-14 [facility] Comment on above: Result Comment: High Sensitivity Troponin values cannot be compared with other Troponin methodologies. Performed By: #### L IVP #### [facility] [address] [place], [place] [phone] Dryerman/Woman: Domenica Velázquez MD CBC with Diffon 10-06-2023 Abs. Basophil 0.03 k/uL Normal 0.00-0.20 [facility] Comment on above: Performed By: #### L IVP #### [facility] [address] [place] [address] Dryerman/Woman: Domenica Velázquez MD Abs.Imm.Granulocyte 0.03 k/uL Normal 0.00-0.30 [facility] Comment on above: Performed By: #### L IVP #### [address] [place], [facility] Dryerman/Woman: Domenica Velázquez MD Abs.Neutrophil (Seg) 6.50 k/uL Normal 1.50-8.10 [facility] Comment on above: Performed By: #### L IVP #### [address] [place], [place] 8351583 Dryerman/Woman: Domenica Velázquez MD Basophils/100 WBC (Bld) 0 % Normal 0-2 [facility] Comment on above: Performed By: #### L IVP #### [facility] [address] [place] [address] [place], [place] [phone] Dryerman/Woman: Domenica Velázquez MD Eosinophils (Bld) [#/Vol] 0.08 10*3/uL Normal 0.00-0.44 [facility] Comment on above: Performed By: #### L IVP #### [facility] [address] [place] [address] Dr[address] [place], [place] [phone] Dryerman/Woman: Domenica Velázquez MD Eosinophils/100 WBC (Bld) 1 % Normal 1-4 [facility] Comment on above: Performed By: #### L IVP #### [facility] [address] [place] [address] Dr[address] [place], [place] [phone] Dryerman/Woman: Domenica Velázquez MD Erythrocyte distribution width (RBC) [Ratio] 13.5 % Normal 11.8-14.4 [facility] Comment on above: Performed By: #### L IVP #### [address] [place] [facility] Dryerman/Woman: Domenica Velázquez MD Hematocrit (Bld) [Volume fraction] 40.1 % Normal 36.3-47.1 [facility] Comment on above: Performed By: #### L IVP #### [address] [place] [facility] Dryerman/Woman: Domenica Velázquze MD Hemoglobin (Bld) [Mass/Vol] 13.4 g/dL Normal 11.9-15.1 [facility] Comment on above: Performed By: #### L IVP #### [address] [place], [place] [address]83 Dryerman/Woman: Domenica Velázquez MD Immature granulocytes/100 WBC (Bld) 0 % Normal 0 [facility] Comment on above: Performed By: #### L IVP #### [address] [place], [place] 1897383 Dryerman/Woman: Domenica Velázquez MD Lymphocytes (Bld) [#/Vol] 2.41 10*3/uL Normal 1.10-3.70 [facility] Comment on above: Performed By: #### L IVP #### [address] [place], [place] 169[address]83 Dryerman/Woman: Domenica Velázquez MD Lymphocytes/100 WBC (Bld) 25 % Normal 24-43 [facility] Comment on above: Performed By: #### L IVP #### [address] [place] [address] Dryerman/Woman: Domenica Velázquez MD MCH (RBC) [Entitic mass] 28.6 pg Normal 25.2-33.5 [facility] Comment on above: Performed By: #### L IVP #### [address] [place] [address] Dryerman/Woman: Domenica Velázquez MD MCHC (RBC) [Mass/Vol] 33.4 g/dL Normal 28.4-34.8 [facility] Comment on above: Performed By: #### L IVP #### [address] [place] [address] Dryerman/Woman: Domenica Velázquez MD MCV (RBC) [Entitic vol] 85.7 fL Normal 82.6-102.9 [facility] Comment on above: Performed By: #### L IVP #### [address] [place] [address] Dryerman/Woman: Domenica Velzáquez MD Monocytes (Bld) [#/Vol] 0.69 10*3/uL Normal 0.10-1.20 [facility] Comment on above: Performed By: #### L IVP #### [address] [place] [address] Dryerman/Woman: Domenica Velázquez MD Monocytes/100 WBC (Bld) 7 % Normal 3-12 [facility] Comment on above: Performed By: #### L IVP #### [facility] [address] [place] [address] [place] [address] Dryerman/Woman: Domenica Velázquez MD Neutrophil (Seg) 67 % High 36-65 [facility] Comment on above: Performed By: #### L IVP #### [facility] [address] [place] [address] Dryerman/Woman: Domenica Velázquez MD NRBC Automated 0.0 per 100 WBC Normal 0.0 [facility] Comment on above: Performed By: #### L IVP #### [facility] [address] [place], [place] 1894[address] Dryerman/Woman: Domenica Velázquez MD Platelet mean volume (Bld) [Entitic vol] 10.5 fL Normal 8.1-13.5 [facility] Comment on above: Performed By: #### L IVP #### [facility] [address] [place], [place] 665[address]83 Dryerman/Woman: Domeinca Velázquez MD Platelets (Bld) [#/Vol] 292 10*3/uL Normal 138-453 [facility] Comment on above: Performed By: #### L IVP #### [address] [place], [place] 3432083 Dryerman/Woman: Domenica Velázquez MD RBC (Bld) [#/Vol] 4.68 10*6/uL Normal 3.95-5.11 [facility] Comment on above: Performed By: #### L IVP #### [address] [place], [place] [phone] Dryerman/Woman: Domenica Velázquez MD WBC (Bld) [#/Vol] 9.7 10*3/uL Normal 3.5-11.3 [facility] Comment on above: Performed By: #### L IVP #### [facility] [address] [place] [address] [place], [place] [phone] Dryerman/Woman: Domenica Velázquez MD Basic Metabolic Profon 10-04 Anion gap [Moles/Vol] 10 mmol/L Normal 9-17 [facility] Comment on above: Performed By: #### D SHAWNA LALA, CDP, TROPI #### [facility] [address] [place] [address] Dryerman/Woman: Domenica Velázquez MD BUN/CRE Ratio 23 High 9-20 [facility] Comment on above: Performed By: #### D BASIA, BMP, CDP, TROPI #### [facility] [address] [place] [address] Dryerman/Woman: Domenica Velázquez MD Calcium [Mass/Vol] 8.9 mg/dL Normal 8.6-10.4 [facility] Comment on above: Performed By: #### D BASIA, BMP, CDP, TROPI #### [facility] [address] [place] [address] Dryerman/Woman: Domenica Velázquez MD Chloride [Moles/Vol] 105 mmol/L Normal 98-107 [facility] Comment on above: Performed By: #### D BASIA, BMP, CDP, TROPI #### [facility] [address] [place] [address] Dryerman/Woman: Domenica Velázquez MD CO2 [Moles/Vol] 26 mmol/L Normal 20-31 [facility] Comment on above: Performed By: #### D BASIA, BMP, CDP, TROPI #### [facility] [address] [place] [address] Dryerman/Woman: Domenica Velázquez MD Creatinine [Mass/Vol] 0.6 mg/dL Normal 0.5-0.9 [facility] Comment on above: Performed By: #### D BASIA, BMP, CDP, TROPI #### [facility] [address] [place] [address] Dryerman/Woman: Domenica Velázquez MD GFR/1.73 sq M.predicted among non-blacks MDRD (S/P/Bld) [Vol rate/Area] mL/min/{1.73_m2} Normal >60 [facility] Comment on above: Result Comment: These [...] #### D BASIA, BMP, CDP, TROPI #### [facility] [address] [place] [address] [place] [place], [place] 9111283 Dryerman/Woman: Domenica Velázquez MD Glucose [Mass/Vol] 96 mg/dL Normal 70-99 [facility] Comment on above: Performed By: #### D BASIA, BMP, CDP, TROPI #### [address] [place] [address] Dryerman/Woman: Domenica Velázquez MD Potassium [Moles/Vol] 3.8 mmol/L Normal 3.7-5.3 [facility] Comment on above: Performed By: #### D BASIA, BMP, CDP, TROPI #### [address] [place], [place] 2339183 Dryerman/Woman: Domenica Velázquez MD Sodium [Moles/Vol] 141 mmol/L Normal 135-144 [facility] Comment on above: Performed By: #### D BASIA, BMP, CDP, TROPI #### [address] [place], [place] 6254183 Dryerman/Woman: Domenica Velázquez MD Urea nitrogen [Mass/Vol] 14 mg/dL Normal 6-20 [facility] Comment on above: Performed By: #### D BASIA, BMP, CDP, TROPI #### [address] [place], [place] 9110183 Dryerman/Woman: Domenica Velázquez MD CBC with Diffon 10-05-2023 Abs. Basophil <0.03 Normal 0.00-0.20 [facility] Comment on above: Performed By: #### D BASIA, BMP, CDP, TROPI #### [address] [place], [place] 1234983 Dryerman/Woman: Domenica Velázquez MD Abs.Imm.Granulocyte 0.03 k/uL Normal 0.00-0.30 [facility] Comment on above: Performed By: #### D BASIA, BMP, CDP, TROPI #### [address] [place], [place] 4040983 Dryerman/Woman: Domenica Velázquez MD Abs.Neutrophil (Seg) 5.10 k/uL Normal 1.50-8.10 [facility] Comment on above: Performed By: #### D BASIA, BMP, CDP, TROPI #### [address] [place], [place] 4189983 Dryerman/Woman: Domenica Velázquez MD Basophils/100 WBC (Bld) 0 % Normal 0-2 [facility] Comment on above: Performed By: #### D BASIA, BMP, CDP, TROPI #### [address] [place], [place] 8[address]83 Dryerman/Woman: Domenica Velázquez MD Eosinophils (Bld) [#/Vol] 0.11 10*3/uL Normal 0.00-0.44 [facility] Comment on above: Performed By: #### D BASIA, BMP, CDP, TROPI #### [address] [place], [place] 1062883 Dryerman/Woman: Domenica Velázquez MD Eosinophils/100 WBC (Bld) 1 % Normal 1-4 [facility] Comment on above: Performed By: #### D BASIA, BMP, CDP, TROPI #### [address] [place], [place] 6674083 Dryerman/Woman: Domenica Velázquez MD Erythrocyte distribution width (RBC) [Ratio] 13.5 % Normal 11.8-14.4 [facility] Comment on above: Performed By: #### D BASIA, BMP, CDP, TROPI #### [address] [place], [place] 5288883 Dryerman/Woman: Domenica Velázquez MD Hematocrit (Bld) [Volume fraction] 42.6 % Normal 36.3-47.1 [facility] Comment on above: Performed By: #### D BASIA, BMP, CDP, TROPI #### [facility] [address] [place], [facility]83 Dryerman/Woman: Domenica Velázquez MD Hemoglobin (Bld) [Mass/Vol] 14.1 g/dL Normal 11.9-15.1 [facility] Comment on above: Performed By: #### D BASIA, BMP, CDP, TROPI #### [facility] [address] [place], [facility] Dryerman/Woman: Domenica Velázquez MD Immature granulocytes/100 WBC (Bld) 0 % Normal 0 [facility] Comment on above: Performed By: #### D BASIA, BMP, CDP, TROPI #### [address] [place], [facility]83 Dryerman/Woman: Domenica Velázquez MD Lymphocytes (Bld) [#/Vol] 2.42 10*3/uL Normal 1.10-3.70 [facility] Comment on above: Performed By: #### D BASIA, BMP, CDP, TROPI #### [address] [place], [facility]83 Dryerman/Woman: Domenica Velázquez MD Lymphocytes/100 WBC (Bld) 30 % Normal 24-43 [facility] Comment on above: Performed By: #### D BASIA, BMP, CDP, TROPI #### [facility] [address] [place], [facility]83 Dryerman/Woman: Domenica Velázqeuz MD MCH (RBC) [Entitic mass] 28.8 pg Normal 25.2-33.5 [facility] Comment on above: Performed By: #### D BASIA, BMP, CDP, TROPI #### [address] [place], [facility]83 Dryerman/Woman: Domenica Velzáquez MD MCHC (RBC) [Mass/Vol] 33.1 g/dL Normal 28.4-34.8 [facility] Comment on above: Performed By: #### D BASIA, BMP, CDP, TROPI #### [facility] [address] [place] [address] Dryerman/Woman: Domenica Velázquez MD MCV (RBC) [Entitic vol] 87.1 fL Normal 82.6-102.9 [facility] Comment on above: Performed By: #### D BASIA, BMP, CDP, TROPI #### [facility] [address] [place] [address] Dryerman/Woman: Domenica Velázquez MD Monocytes (Bld) [#/Vol] 0.53 10*3/uL Normal 0.10-1.20 [facility] Comment on above: Performed By: #### D BASIA, BMP, CDP, TROPI #### [address] [place], [facility]83 Dryerman/Woman: Domenica Velázquez MD Monocytes/100 WBC (Bld) 7 % Normal 3-12 [facility] Comment on above: Performed By: #### D BASIA, BMP, CDP, TROPI #### [address] [place], [place] 4264083 Dryerman/Woman: Domenica Velázquez MD Neutrophil (Seg) 62 % Normal 36-65 [facility] Comment on above: Performed By: #### D BASIA, BMP, CDP, TROPI #### [facility] [address] [place] [address] Dryerman/Woman: Domenica Velázquez MD NRBC Automated 0.0 per 100 WBC Normal 0.0 [facility] Comment on above: Performed By: #### D BASIA, BMP, CDP, TROPI #### [facility] [address] [place], [place] 1665983 Dryerman/Woman: Domenica Velázquez MD Platelet mean volume (Bld) [Entitic vol] 10.9 fL Normal 8.1-13.5 [facility] Comment on above: Performed By: #### D BASIA, BMP, CDP, TROPI #### [facility] [address] [place] [address] Dryerman/Woman: Domenica Velázquez MD Platelets (Bld) [#/Vol] 296 10*3/uL Normal 138-453 [facility] Comment on above: Performed By: #### D BASIA, BMP, CDP, TROPI #### [facility] [address] [place] [address] Dryerman/Woman: Domenica Velázquez MD RBC (Bld) [#/Vol] 4.89 10*6/uL Normal 3.95-5.11 [facility] Comment on above: Performed By: #### D BASIA, BMP, CDP, TROPI #### [facility] [address] [place], [place] 0682083 Dryerman/Woman: Domenica Velázquez MD WBC (Bld) [#/Vol] 8.2 10*3/uL Normal 3.5-11.3 [facility] Comment on above: Performed By: #### D BASIA, BMP, CDP, TROPI #### [facility] [address] [place], [place] 8349683 Dryerman/Woman: Domenica Velázquez MD CT CHEST PULMONARY EMBOLISM [...] Fernando Marcelino MD 10/05/23 Final result Normal [facility] D-Dimer Teston 10-05-2023 D-Dimer Test 0.30 ug/mL FEU Normal 0.00-0.59 [facility] Comment on above: [...] #### D BASIA, BMP, CDP, TROPI #### [facility] [address] [place], [place] 9976883 Dryerman/Woman: Domenica Velázquez MD Liver Profileon 10-05-2023 Albumin [Mass/Vol] 4.4 g/dL Normal 3.5-5.2 [facility] Comment on above: Performed By: #### L IVP #### [facility] [address] [place], [place] 3378983 Dryerman/Woman: Domenica Velázquez MD Albumin/Glob Ratio 1.4 Normal 1.0-2.5 [facility] Comment on above: Performed By: #### L IVP #### [facility] [address] [place], [place] 2930583 Dryerman/Woman: Domenica Velázquez MD Alkaline Phos 99 U/L Normal 35-104 [facility] Comment on above: Performed By: #### L IVP #### [facility] [address] [place], [place] 5720783 Dryerman/Woman: Domenica Velázquez MD ALT [Catalytic activity/Vol] 13 U/L Normal 5-33 [facility] Comment on above: Performed By: #### L IVP #### [facility] [address] [place], [place] 5844283 Dryerman/Woman: Domenica Velázquez MD AST [Catalytic activity/Vol] 16 U/L Normal <32 [facility] Comment on above: Performed By: #### L IVP #### [facility] [address] [place], [place] 8817383 Dryerman/Woman: Domenica Velázquez MD Bilirubin [Mass/Vol] 0.2 mg/dL Low 0.3-1.2 [facility] Comment on above: Performed By: #### L IVP #### [facility] [address] [place], [place] 9793683 Dryerman/Woman: Domenica Velázquez MD Bilirubin, Indirect Can not be calculated Normal 0.0-1 .0 [facility] Comment on above: Performed By: #### L IVP #### [facility] [address] [place] [address] Dryerman/Woman: Domenica Velázquez MD Bilirubin.indirect [Mass/Vol] mg/dL Normal <0.3 [facility] Comment on above: Performed By: #### L IVP #### [facility] [address] [place] [address] Dryerman/Woman: Domenica Velázquez MD Protein [Mass/Vol] 7.5 g/dL Normal 6.4-8.3 [facility] Comment on above: Performed By: #### L IVP #### [address] [place], [place] 4232183 Dryerman/Woman: Domenica Velázquez MD Troponinon 10-05-2023 Troponin, High Sens <6 Normal 0-14 [facility] Comment on above: Result Comment: High Sensitivity Troponin values cannot be compared with other Troponin methodologies. Performed By: #### T ROPI #### [address] [place] [address] Dryerman/Woman: Domenica Velázquez MD Troponin, High Sens <6 Normal 0-14 [facility] Comment on above: Result Comment: High Sensitivity Troponin values cannot be compared with other Troponin methodologies. Performed By: #### D BASIA, BMP, CDP, TROPI #### [address] [place], [place] 5819183 Dryerman/Woman: Domenica Velázquez MD XR CHEST PORTABLEon 10-05-19 [...] Deyanira Lock MD 10/05/23 Final result Normal [facility] CT Cervical spine WO contras ton 04-20-2023 Radiology Study observation (narrative) [facility] CT Head WO contraston 2023 Radiology Study observation (narrative) [facility] No Panel Informationon 04-[address] abnormality identified in the brain. No acute osseous abnormality identified in the cervical spine. [facility] RIS CONSOLIDATED EXAMINATION: CT [...] There is no prevertebral soft tissue swelling. [facility] RIS Andi Alvarez MD - [...] InformationOrdered By: Andi Montoya on 04-20-2023 [facility] Work Phone: Glucose Glucometer (BldC) [M ass/Vol]on 03-27-2023 Glucose [Mass/Vol] 151 mg/dL High 65-99 [facility] CBC AND AUTO DIFFon 03-16-19 ABSOLUTE BASOPHIL 0.0 X10E9/L Normal 0.0-0.2 [facility] Comment on above: Performed By: #### Terrell BURGESS CMP, 19017-2, TSHR #### [facility] ([id number]) [address], [address] [place] [address] ABSOLUTE NEUTROPHIL 7.7 X10E9/L High 1.5-6.6 [facility] Comment on above: Performed By: #### Terrell BURGESS CMP, 54795-8, TSHR #### [facility] ([id number]) [address], [address] [place] [address] Basophils/100 WBC (Bld) 0.3 % Normal [facility] Comment on above: Performed By: #### Terrell BURGESS CMP, 11991-0, TSHR #### [facility] ([id number]) [address], [address] [place] [address] Eosinophils (Bld) [#/Vol] 0.1 10*3/uL Normal 0.0-0.4 [facility] Comment on above: Performed By: #### Terrell BURGESS CMP, 88438-2, TSHR #### [facility] ([id number]) [address], [address] [place] [address] Eosinophils/100 WBC (Bld) 1.1 % Normal [facility] Comment on above: Performed By: #### Terrell BURGESS CMP, 85819-6, TSHR #### [facility] ([id number]) [address], [address] [place] [address] Erythrocyte distribution width (RBC) [Ratio] 14.6 % Normal 11.5-15.0 [facility] Comment on above: Performed By: #### C JAHAIRA BURGESS, 17443-2, TSHR #### [facility] ([id number]) [address] [address] [place] [address] Hematocrit (Bld) [Volume fraction] 45.7 % Normal 35-47 [facility] Comment on above: Performed By: #### Terrell BURGESS CMP, 03795-6, TSHR #### [facility] ([id number]) [address], [facility] [address] [place] [address] Hemoglobin (Bld) [Mass/Vol] 15.0 g/dL Normal 11.7-15.5 [facility] Comment on above: Performed By: #### Terrell BURGESS CMP, 68992-6, TSHR #### [facility] ([id number]) [address] [address] [place] [address] Lymphocytes (Bld) [#/Vol] 2.4 10*3/uL Normal 1.0-3.5 [facility] Comment on above: Performed By: #### Terrell BURGESS CMP, 68572-5, TSHR #### [facility] ([id number]) [address] [address] [place] [address] Lymphocytes/100 WBC (Bld) 22.1 % Normal [facility] Comment on above: Performed By: #### Terrell BURGESS CMP, 46493-7, TSHR #### [facility] ([id number]) [address], [facility] [address] [place] [address] MCH (RBC) [Entitic mass] 29.0 pg Normal 27-34 [facility] Comment on above: Performed By: #### Terrell BURGESS CMP, 50000-3, TSHR #### [facility] ([id number]) [address], [address] [place] [address] MCHC (RBC) [Mass/Vol] 32.8 g/dL Normal 32-36 [facility] Comment on above: Performed By: #### Terrell BURGESS CMP, 25860-7, TSHR #### [facility] ([id number]) [address], [address] [place] [address] MCV (RBC) [Entitic vol] 88 fL Normal 80-100 [facility] Comment on above: Performed By: #### Terrell BURGESS CMP, 78686-8, TSHR #### [facility] ([id number]) [address], [facility] [address] [place] [address] Monocytes (Bld) [#/Vol] 0.6 10*3/uL Normal 0-0.9 [facility] Comment on above: Performed By: #### Terrell BURGESS CMP, 77664-0, TSHR #### [facility] ([id number]) [address], [address] [place] [address] Monocytes/100 WBC (Bld) 5.7 % Normal [facility] Comment on above: Performed By: #### Terrell BURGESS CMP, 25227-4, TSHR #### [facility] ([id number]) [address], [facility] [address] [place] [address] Neutrophils/100 WBC (Bld) 70.8 % Normal [facility] Comment on above: Performed By: #### Terrell BURGESS CMP, 96616-0, TSHR #### [facility] ([id number]) [address], [address] [place] [address] Platelet mean volume (Bld) [Entitic vol] 9.7 fL Normal 7-12 [facility] Comment on above: Performed By: #### Terrell BURGESS, CMP, 70886-4, TSHR #### [facility] ([id number]) [address], [address] [place] [address] Platelets (Bld) [#/Vol] 303 10*3/uL Normal 150-450 [facility] Comment on above: Performed By: #### C BCA, CMP, 99369-5, TSHR #### [facility] ([id number]) [address], [address] [place] [address] RBC COUNT 5.17 X10E12/L Normal 3.80-5.20 [facility] Comment on above: Performed By: #### C BCA, CMP, 31981-7, TSHR #### [facility] ([id number]) [address], [address] [place] [address] WBC (Bld) [#/Vol] 10.9 10*3/uL Normal 4.0-11.0 [facility] Comment on above: Performed By: #### C BCA, CMP, 03472-2, TSHR #### [facility] ([id number]) [address], [address] [place] [address] COMPREHENSIVE METABOLIC PANE Dirk 03-16-2023 Albumin [Mass/Vol] 4.7 g/dL Normal 3.2-5.3 [facility] Comment on above: Performed By: #### C BCA, CMP, 82857-0, TSHR #### [facility] ([id number]) [address], [address] [place] [address] ALP [Catalytic activity/Vol] 74 U/L Normal 39-130 [facility] Comment on above: Performed By: #### C BCA, CMP, 64311-7, TSHR #### [facility] ([id number]) [address], [address] [place] [address] ALT [Catalytic activity/Vol] 22 U/L Normal 0-31 [facility] Comment on above: Performed By: #### C BCA, CMP, 73548-1, TSHR #### [facility] ([id number]) [address], [address] [place] [address] Anion gap [Moles/Vol] 12 mmol/L Normal 5-15 [facility] Comment on above: Performed By: #### C BCA, CMP, 44106-4, TSHR #### [facility] ([id number]) [address], [address] [place] [address] AST [Catalytic activity/Vol] 20 U/L Normal 0-41 [facility] Comment on above: Performed By: #### C BCA, CMP, 49267-4, TSHR #### [facility] ([id number]) [address], [address] [place] [address] Bilirubin [Mass/Vol] 0.5 mg/dL Normal 0.3-1.2 [facility] Comment on above: Performed By: #### C BCA, CMP, 99710-2, TSHR #### [facility] ([id number]) [address], [address] [place] [address] Calcium [Mass/Vol] 9.9 mg/dL Normal 8.5-10.5 [facility] Comment on above: Performed By: #### C BCA, CMP, 48115-5, TSHR #### [facility] ([id number]) [address], [address] [place] [address] Chloride [Moles/Vol] 105 mmol/L Normal 98-109 [facility] Comment on above: Performed By: #### C BCA, CMP, 21472-1, TSHR #### [facility] ([id number]) [address], [address] [place] [address] CO2 [Moles/Vol] 25 mmol/L Normal 22-32 [facility] Comment on above: Performed By: #### C BCA, CMP, 09963-7, TSHR #### [facility] ([id number]) [address], [address] [place] [address] Creatinine [Mass/Vol] 0.74 mg/dL Normal 0.40-1.00 [facility] Comment on above: Result Comment: METH OD TRACEABLE TO IDMS STANDARD Performed By: #### C ADITYA, CMP, 17870-9, TSHR #### [facility] ([id number]) [address], [address] [place] [address] eGFR (CKD-EPI) NON-RACE DEPENDENT >90 Normal >59 [facility] Comment on above: Result Comment: Reported eGFR is based on the CKD-EPI 2020 equation that does not use a race coefficient. Performed By: #### C BCA, CMP, 73885-0, TSHR #### [facility] ([id number]) [address], [address] [place] [address] Glucose [Mass/Vol] 143 mg/dL High 65-99 [facility] Comment on above: Performed By: #### C BCA, CMP, 46344-3, TSHR #### [facility] ([id number]) [address], [address] [place] [address] Potassium [Moles/Vol] 3.8 mmol/L Normal 3.5-5.0 [facility] Comment on above: Performed By: #### C ADITYA, CMP, 37230-2, TSHR #### [facility] ([id number]) [address], [address] [place] [address] Protein [Mass/Vol] 7.8 g/dL Normal 6.0-8.0 [facility] Comment on above: Performed By: #### C BCA, CMP, 62531-2, TSHR #### [facility] ([id number]) [address], [address] [place] [address] Sodium [Moles/Vol] 142 mmol/L Normal 134-146 [facility] Comment on above: Performed By: #### C BCA, CMP, 79419-9, TSHR #### [facility] ([id number]) [address], [address] [place] [address] Urea nitrogen [Mass/Vol] 17 mg/dL Normal 5-23 [facility] Comment on above: Performed By: #### Terrell BURGESS CMP, 09633-2, TSHR #### [facility] ([id number]) [address], [facility] [address] [place] [address] HGB A1C (GLYCO-HGB)on 2023 Glucose [Mass/Vol] 117 mg/dL Normal [facility] Comment on above: Performed By: #### Terrell BURGESS CMP, 68788-6, TSHR #### [facility] ([id number]) [address] [address] [place] [address] HbA1c (Bld) [Mass fraction] 5.7 % High 4.4-5.6 [facility] Comment on above: Result Comment: NOTE ADA Guidelines Result HgbA1c Normal : less than 5.7 % Prediabetes : 5.7 % to 6.4 % Diabetes : > 6.4 % Use with caution in patients with abnormal hemoglobin variants as the half-life of red blood cells and in vivo glycation rates are affected. Performed By: #### Terrell BURGESS CMP, 64405-3, TSHR #### [facility] ([id number]) [address], [facility] [address] [place] [address] Lipid 1996 panelon Cholesterol [Mass/Vol] 132 mg/dL Low 150-200 [facility] Comment on above: Performed By: #### Terrell BURGESS, JAHAIRA, 26002-3, TSHR #### [facility] ([id number]) [address], [facility] [address] [place] [address] Cholesterol in HDL [Mass/Vol] 58 mg/dL Normal >39 [facility] Comment on above: Result Comment: HDL <40 mg/dL - High Risk HDL > or = 40mg/dL- Desirable HDL >60 mg/dL - Negative Risk Performed By: #### C ADITYA, CMP, 60535-6, TSHR #### [facility] ([id number]) [address], [address] [place] [address] Cholesterol in LDL [Mass/Vol] 51 mg/dL Normal <130 [facility] Comment on above: Result Comment: LDL <100 mg/dL - Desirable LDL >160 mg/dL - High Risk Performed By: #### Terrell BURGESS, CMP, 81680-9, TSHR #### [facility] ([id number]) [address], [address] [place] [address] Cholesterol in VLDL [Mass/Vol] 23 mg/dL Normal 0-30 [facility] Comment on above: Performed By: #### C JAHAIRA BURGESS, 78284-1, TSHR #### [facility] ([id number]) [address], [address] [place] [address] CHOLESTEROL:HDL 2.3 Normal 1.0-5.0 [facility] Comment on above: Performed By: #### Terrell BURGESS CMP, 22727-1, TSHR #### [facility] ([id number]) [address], [address] [place] [address] Triglyceride [Mass/Vol] 114 mg/dL Normal 27-150 [facility] Comment on above: Performed By: #### Terrell BURGESS, CMP, 11740-7, TSHR #### [facility] ([id number]) [address], [address] [place] [address] MAMM SCREENING BILATERAL W C drive thru order taker 03-16-2023 MAMM SCREENING BILATERAL W CAD MAMM [...] 3:25 PM 0A a ADDITIONAL I Normal [facility] TSH WITH REFLEXon 03-16-2023 TSH 0.55 uIU/mL Normal 0.49-4.67 [facility] Comment on above: Performed By: #### C BCA, CMP, 55815-3, TSHR #### [facility] ([id number]) [address], [address] [place] [address] PT - Assessmentson 3 PT - Assessments [id number] 90 [id number]#1 .00CD:127 Normal [facility] ST - Assessmentson 3 ST - Assessments [id number] 02 [id number]#1. 00CD:127 Normal [facility] Consenton 09-25-2022 Consent [id number]#1. 00CD:127 Normal [facility] Outside Recordson 2022 Outside Records [id number]#1. 00CD:127 [address] [facility] ST - Orderson 2022 ST - Orders [id number]#1. 00CD:127 Normal [facility] ST - Orders [id number] 03 [id number]#1. 00CD:127 Normal [facility] ST - Otheron 2022 ST - Other [id number]#1. 00CD:127 Normal [facility] PAP ACOG PANEL 2: 30 to 65on 05-27-2022 . . Normal [facility] Comment on above: Result Comment: Perf ormed at: WB Performed By: #### [id number] #### [facility] [address] [place] [address] Dr. Do Aguilar Age Gdln ACOG Testing - [facility] Comment on above: Performed By: #### [id number] #### [facility] [address] [address] [address] Do Aguilar DIAGNOSIS: Comment Normal [facility] Comment on above: Result Comment: NEGA TIVE FOR INTRAEPITHELIAL LESION OR MALIGNANCY. Performed at: WB Performed By: #### [id number] #### [facility] [address] [address] [address] Do Aguilar HPV Aptima Negative Normal Negative [facility] Comment on above: Result Comment: This nucleic acid amplification test detects fourteen high-risk HPV types (16,18,31,33,35,39,45,51,52,56,58,59,66,68) without differentiation. Performed at: =G Performed By: #### 4 [id number] #### [facility] [address] [address] [address] Do Aguilar HPV Genotype Reflex Comment Normal [facility] Comment on above: Result Comment: Crit eria not met, HPV Genotype not performed. Performed at: WB Performed By: #### 4 [id number] #### [facility] [address] [place] [address] Dr. Do Aguilar Methodology: Comment Normal [facility] Comment on above: Result Comment: This liquid based ThinPrep(R) pap test was screened with the use of an image guided system. Performed at: WB Performed By: #### 4 [id number] #### [facility] [address] [place] [address] Dr. Do Aguilar Note: Comment Normal [facility] Comment on above: Result Comment: The Pap smear is a screening test designed to aid in the detection of premalignant and malignant conditions of the uterine cervix. It is not a diagnostic procedure and should not be used as the sole means of detecting cervical cancer. Both false-positive and false-negative reports do occur. . Performed at: WB Performed By: #### 4 [id number] #### [facility] [address] [place] [address] Dr. Do Aguilar Performed by: Comment Normal [facility] Comment on above: Result Comment: Melissa Ramachandran, Mill Oiler (ASCP) Performed at: WB Performed By: #### 4 [id number] #### [facility] [address] [place] [address] Dr. Do Aguilar Specimen adequacy: Comment Normal [facility] Comment on above: Result Comment: Sati sfactory for evaluation. Endocervical and/or squamous metaplastic cells (endocervical component) are present. Performed at: WB Performed By: #### 4 [id number] #### [facility] [address] [place] [address] Dr. Do Aguilar HEPATITIS C AB CASCADE TO QU ANT PCR GENOon 02-18-2022 HCV AB <0.1 Normal 0.0-0.9 [facility] Comment on above: Performed By: #### H EPCASC #### [facility] [address] [place] [address] Dr. Do Aguilar Interpretation: Comment Normal [facility] Comment on above: Result Comment: Nega tive Not infected with HCV, unless recent infection is suspected or other evidence exists to indicate HCV infection. Performed By: #### H EPCASC #### [facility] [address] [address] [address] Do Aguilar LIVER PROFILEon 02-17-2022 Albumin [Mass/Vol] 3.6 g/dL Normal 3.4-5.0 [facility] Comment on above: Performed By: #### L IVER #### [facility] [address] [place] [address] Dr. Do Aguilar Albumin/Globulin [Mass ratio] 0.9 {ratio} Normal [facility] Comment on above: Performed By: #### L IVER #### [facility] [address] [place] [address] Dr. Do Aguilar ALP [Catalytic activity/Vol] 79 U/L Normal 46-116 [facility] Comment on above: Performed By: #### L IVER #### [facility] [address] [place] [address] Dr. Do Aguilar ALT [Catalytic activity/Vol] 51 U/L Normal 14-59 [facility] Comment on above: Performed By: #### L IVER #### [facility] [address] [place] [address] Dr. Do Aguilar AST [Catalytic activity/Vol] 33 U/L Normal 15-37 [facility] Comment on above: Performed By: #### L IVER #### [facility] [address] [place] [address] Dr. Do Aguilar BILI, CONJUGATED 0.1 mg/dL Normal 0.0-0.2 [facility] Comment on above: Performed By: #### L IVER #### [facility] [address] [place] [address] Dr. Do Aguilar Bilirubin [Mass/Vol] 0.3 mg/dL Normal 0.2-1.0 [facility] Comment on above: Performed By: #### L IVER #### [facility] [address] [place] [address] Dr. Do Aguilar Globulin (S) [Mass/Vol] 4.2 g/dL Normal [facility] Comment on above: Performed By: #### L IVER #### [facility] [address] [place] [address] Dr. Do Aguilar Protein [Mass/Vol] 7.8 g/dL Normal 6.4-8.2 [facility] Comment on above: Performed By: #### L IVER #### [facility] [address] [address] [address] Do Aguilar TSHon 02-17-2022 TSH 0.457 uIU/mL Normal 0.358-3.740 [facility] Comment on above: Performed By: #### T SH #### [facility] [address] [address] [address] Do Aguilar VITAMIN B12on 02-17-2022 Cobalamin (Vitamin B12) [Mass/Vol] 1864.0 pg/mL Critically high 193.0-986.0 [facility] Comment on above: Performed By: #### V ITB12 #### [facility] [address] [place] [address] Dr. Do Aguilar History and Physicalon 12-04 History and Physical [id number]#1.00 [facility] Operative Report - Surgeon/P godwin 12-04-2016 Operative Report - Surgeon/Physician [id number]#1.00 [facility] Coding Summaryon 11-26-2016 Coding Summary CODING DATE: 11/26/2016 [facility] STATUS: Home PAYOR: Medicaid HMO ADMIT DX: REASON FOR VISIT DX: R10.13 Epigastric pain R10.11 Right upper quadrant pain FINAL DX: PRINCIPAL: K29.70 Gastritis, unspecified, without bleeding SECONDARY: PROCEDURES DOCTOR NAME DATE 06230 Esophagogastroduodenos Ted ha Richard MD 11/21/2016 flexible, transoral; with biopsy, single or multiple NOTE: The code number assigned matches the documented diagnosis and / or procedure in the patient's chart. However, the narrative phrase printed from the coding software may appear abbreviated, or result in slightly different terminology. Coded By: Rosalba Laureano Date Saved: 11/26/2016 01:09 pm [facility] Consent Formson 11-24-2016 Consent Forms [id number]#1.00 [facility] Intraoperative Note [id number] [facility] [id number]#1.00O [facility] Operative Report - Surgeon/P godwin 11-24-2016 Operative Report - Surgeon/Physician DATE OF PROCEDURE: 11/21/2016PREOPERATIVE DIAGNOSIS: Epigastric pain/right upper quadrant pain.POSTOPERATIVE DIAGNOSIS: Moderate gastritis.PROCEDURE PERFORMED: EGD with biopsy x1 from the antrum of the stomach forH. pylori testing.SURGEON: Juan Ramon Jean M.D.ANESTHESIA: Conscious sedation with Versed 6 mg IV, Demerol 50 mg IV.FINDINGS: As above.DISPOSITION: To the [facility] area in fair condition.INDICATIONS: The patient [...] in two weeks.Juan Ramon Jean M.D.JOB #: [id number]: 11/21/2016T: 11/21/2016[Electronica lly Signed on: 12/03/2016 07:09 EDT] Juan Ramon Jean MD Ge nerated Domain User for [id number][Verified on: 12/03/2016 07:09 EDT] Juan Ramon Jean MD[Transcribed on: 11/21/2016 11:37 EDT][facility] Telemetry Stripson 7 Telemetry Strips [id number] [facility] [id number]#1.00 [facility] H. Pylori Gastricon 11-22-19 17 H. Pylori Rico Int Ctrl Pass [facility] Comment on above: Order Comment: H. (A NTRUM) Result Comment: Pass Performed By: #### 2 [id number] ####[facility] (DEFAULT)[address] [place] [address] H. Pylori Gastric Negative Normal Negative [facility] Comment on above: Order Comment: H. (A NTRUM) Result Comment: Nega tive Performed By: #### 2 [id number] ####[facility] (DEFAULT)[address] [place] [address] Inpatient Clinical Summaryon 11-21-2016 Inpatient Clinical Summary [facility] SURGERYClinical Discharge SummaryPERSON INFORMATIONName ROSE KARMA BANEGAS Age 36 Years 80Sex FEMALE Language Niuean PCP DEFRANCE, DAVIDMarital Status [facility] SurgeryREG[facility] 15-69-35 Acct# Arrival 11/21/16 07:22:21Visit Reason EGD - EPIGASTRIC ABDOMINAL PAIN Acuity LOS 013 23:19Address:[address] [id number]:PROVIDER INFORMATIONVITALS INFORMATIONVital Sign Triage LatestTemp OralTemp Temporal 36.4 DegC 36.4 DegCTemp IntravascularTemp AxillaryTemp Rhhwzx08 Sat 100 % 97 %Respiratory Rate 16 [...] for allergy symptoms, # 10 tab(s), 0 Refill(s)cyclobenzapri ne (THP Cyclobenzaprine TAB 10mg (Flexeril)) 1 tab(s), [...] every day as needed for for allergy symptomscyclobenzaprin e (THP Cyclobenzaprine TAB 10mg (Flexeril)) 1 tab(s) [...] INFORMATIONDischarge Disposition:Discharge Location:DEPART REASON INCOMPLETE INFORMATIONPATIENT EDUCATION INFORMATIONInstruction s:Follow up:With: Address: When:Juan Ramon Jean [address] [id number] Business (1) Within 2 to 4 weeksComments:Call for follow up appointmentWith: Address: When:DOMENICA OLIVA [address] [place], [place] [id number] Business (1)DIAGNOSISAcute gastritisComment:PHYS DOC NOTES Normal [facility] Inpatient Patient Summaryon 11-21-2016 Inpatient Patient Summary [address] [id number] patient Discharge InstructionsName: ROSE KARMA BANEGASB: 80 Address: [address] [place] [address] Care Provider:Name: DOMENICA OLIVAPhone: Discharge Diagnosis: Acute [...] or business decisions or sign any legal documentsTrihealth Good Samaritan Hospital would like to thank you for allowing us to assist you with your healthcare needs. The following includes patient education materials and information regarding your injury/illness.KARMA SR has been given the following list of follow-up instructions, prescriptions, and patient education materials:Follow-up InstructionsWith: Address: When:Juan Ramon Jean [address] [place] [address] Business (1) Within 2 to 4 weeksComments:Call for follow up appointmentWith: Address: When:DOMENICA HAZEL [address] [place] [address] Business (1)MedicationsDuring the course of [...] Oral every day as needed for allergy symptoms.cyclobenzapri ne (THP Cyclobenzaprine TAB 10mg (Flexeril)) 1 tab(s) [...] Oral every day as needed for allergy symptoms.cyclobenzapri ne (THP Cyclobenzaprine TAB 10mg (Flexeril)) 1 tab(s) [...] to relieve symptoms and feel better. Usual CauseIllnessVirusesBac teria Antibiotic NeededCold/Runny Nose NOBronchitis/Chest Cold (in otherwise healthy children and adults) NOWhooping Cough YesFlu NOStrep Throat YesSore Throat (except strep) NOFluid in the middle ear (otitis media with effusion) NOUrinary Tract Infection YesAntibiotics Aren?t Always the Answerwww.cdc.gov/gets mart GET SMART Know When Antibiotics Ebony.[place] Department of Health and Human ServicesCenters for Disease Control and Prevention October 2013 [facility] MAGR Endo Intraoperative Rec ordon 11-21-2016 [facility] Endo Intraoperative Record [facility] Endo Intra-Op Record Summary Primary Physician: Juan Ramon Jean MD Finalized Date/Time: 11/21/16 08:37:38 Pt. Name: KARMA SR/Sex: 1980 FEMALE Med Rec #: [id number] Physician: Juan Ramon Jean MD Financial #: [id number] Pt. 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 Time In 11/21/16 08:06:00 11/21/16 08:06:00 11/21/16 08:06:00 Time Out 11/21/16 08:23:00 11/21/16 08:23:00 11/21/16 08:23:00 Procedure Esophagogastroduodenos co Esophagogastroduodenos co Esophagogastroduodenos co py py py Last Modified By: Robyn Castillo Debra L Barone, Debra L 11/21/16 08:23:47 11/21/16 08:23:47 11/21/16 08:23:47 Entry 4 Case Attendee Adela Lance RN Role Performed Scrub Personnel Time In 11/21/16 08:06:00 Time Out 11/21/16 08:23:00 Procedure Esophagogastroduodenos co py Last Modified By: Robyn Castillo 11/21/16 08:23:47 Surgical Procedures EN MAGR Pre-Care Text: A.20 Verifies operative procedure, surgical site, and laterality Im.150 Develops individualized plan of care Entry 1 Procedure Esophagogastroduodenos co Primary Procedure Yes py Primary Surgeon Juan Ramon Jean MD Surgeon Comment EGD - EPIGASTRIC ABDOMINAL PAIN Start 11/21/16 08:15:00 Stop 11/21/16 08:18:00 Anesthesia Type Conscious Sedation Surgical Service Gastroenterology Wound Class Clean-Contaminated Last Modified By: Robyn Catsillo 11/21/16 08:24:20 Post-Care Text: O.730 The patient's [...] Im.80 Applies safety devices Entry 1 Procedure Esophagogastroduodenos co Body Position Other/See comments py Left Arm [...] Unfinalizing Freetext Reason for Unfinalizing 11/21/16 08:37 [facility] Mod[facility] Pick List Normal [facility] MAGR Endo Postoperative Benjamin rdon 11-21-2016 [facility] Endo Postoperative Record [facility] Endo Phase II Record Summary Primary Physician: Juan Ramon Jean MD Finalized Date/Time: 11/21/16 10:02:07 Pt. Name: ASHLEY SRHER Pyle.B./Sex: 1980 FEMALE Med Rec #: [id number] Physician: Juan Ramon Jean MD Financial #: [id number] Pt. Type: D Room/Bed: / Admit/Disch: 11/21/16 07:22:21 - Institution: Phase II [facility] Text: Patient is free from s/s [...] Signed By: Cammy Barroso RN 11/21/16 10:02 [facility] Endo Preoperative Recor don 11-21-2016 [facility] Endo Preoperative Record [facility] Pre-Op Record Summary Primary Physician: Juan Ramon Jean MD Finalized Date/Time: 11/21/16 08:27:58 Pt. Name: KARMA SR./Sex: 1980 FEMALE Med Rec #: [id number] Physician: Juan Ramon Jean MD Financial #: [id number] Pt. Type: D Room/Bed: / Admit/Disch: 11/21/16 07:22:21 - Institution: Pre-Op Case Times EN [facility] Pre-Care Text: Patient will be optimally prepared [...] Signed By: Cammy Barroso RN 11/21/16 08:27 [facility] Test Urine 1on U Preg Negative [facility] Comment on above: Result Comment: Nega tive Performed By: #### 3 [id number] ####[facility] (DEFAULT)[address] [place] [address] U Preg Internal Control Pass [facility] Comment on above: Result Comment: Pass Performed By: #### 3 [id number] ####[facility] (DEFAULT)[address] [place] [address] Vital Signs Date Time Vital Sign Value Performing Clinician Facility 09-21-2024 13:48-0400 Diastolic blood pressure 84 mm[Hg] Loreto Mcneal TOBACCO EDUCATOR Work Phone: [facility] 09-21-2024 13:48-0400 Heart rate 97 /min Loreto Mcneal TOBACCO EDUCATOR Work Phone: [facility] 09-21-2024 13:48-0400 Respiratory rate 16 /min Loreto Mcneal TOBACCO EDUCATOR Work Phone: [facility] 09-21-2024 13:48-0400 SaO2% (BldA) [Mass fraction] 91 % Loreto Mcneal TOBACCO EDUCATOR Work Phone: [facility] 09-21-2024 13:48-0400 Systolic blood pressure 127 mm[Hg] Loreto Mcneal TOBACCO EDUCATOR Work Phone: [facility] 09-21-2024 12:55-0400 Body temperature 97 [degF] Loreto Mcneal TOBACCO EDUCATOR Work Phone: [facility] 09-21-2024 12:45-0400 Inhaled oxygen flow rate 3 L/min Loreto Mcneal TOBACCO EDUCATOR Work Phone: [facility] 09-21-2024 11:00-0400 Body height 160.02 cm Loreto Mcneal TOBACCO EDUCATOR Work Phone: [facility] 09-21-2024 11:00-0400 Body weight 97.52 kg Loreto Fredis TOBACCO EDUCATOR Work Phone: [facility] 09-20-2024 13:04-0400 Body height 160 cm Mendez Biedenbach DO Work Phone: [facility] 09-20-2024 13:04-0400 Body mass index (BMI) [Ratio] 40.74 kg/m2 Mendez Biedenbach DO Work Phone: [facility] 09-20-2024 13:04-0400 Body weight 104.33 kg Mendez Biedenbach DO Work Phone: [facility] 09-01-2024 10:52-0400 Body height 160 cm Mendez Biedenbach DO Work Phone: [facility] 09-01-2024 10:52-0400 Body mass index (BMI) [Ratio] 40.74 kg/m2 Mendez Biedenbach DO Work Phone: [facility] 09-01-2024 10:52-0400 Body weight 104.33 kg Mendez Biedenbach DO Work Phone: [facility] 08-19-2024 13:17-0400 Body height 160 cm Mendez Biedenbach DO Work Phone: [facility] 08-19-2024 13:17-0400 Body mass index (BMI) [Ratio] 40.74 kg/m2 Mendez Biedenbach DO Work Phone: [facility] 08-19-2024 13:17-0400 Body weight 104.33 kg Mendez Biedenbach DO Work Phone: [facility] 08-10-2024 12:13-0400 Diastolic blood pressure 73 mm[Hg] Loreto Mcneal TOBACCO EDUCATOR Work Phone: [facility] 08-10-2024 12:13-0400 Heart rate 97 /min Loreto Mcnela TOBACCO EDUCATOR Work Phone: [facility] 08-10-2024 12:13-0400 Respiratory rate 16 /min Loreto Mcneal TOBACCO EDUCATOR Work Phone: [facility] 08-10-2024 12:13-0400 SaO2% (BldA) [Mass fraction] 94 % Loreto Mcneal TOBACCO EDUCATOR Work Phone: [facility] 08-10-2024 12:13-0400 Systolic blood pressure 113 mm[Hg] Loreto Mcneal TOBACCO EDUCATOR Work Phone: [facility] 08-10-2024 10:50-0400 Body temperature 98 [degF] Loreto Mcneal TOBACCO EDUCATOR Work Phone: [facility] 08-10-2024 10:23-0400 Inhaled oxygen flow rate 8 L/min Loreto Mcneal TOBACCO EDUCATOR Work Phone: [facility] 08-10-2024 06:32-0400 Body height 160.02 cm Loreto Mcneal TOBACCO EDUCATOR Work Phone: [facility] 08-10-2024 06:32-0400 Body weight 106 kg Loreto Mcneal TOBACCO EDUCATOR Work Phone: [facility] 08-08-2024 13:24-0400 Body height 160.02 cm Loreto Mcneal TOBACCO EDUCATOR Work Phone: [facility] 08-08-2024 13:24-0400 Body mass index (BMI) [Ratio] 39.8 kg/m2 Loreto Mcneal TOBACCO EDUCATOR Work Phone: [facility] 08-08-2024 13:24-0400 Body weight 102.05 kg Loreto Mcneal TOBACCO EDUCATOR Work Phone: [facility] 08-04-2024 10:45-0400 Body height 160 cm Cleo Zambrano MD Work Phone: [facility] 08-04-2024 10:45-0400 Body mass index (BMI) [Ratio] 41.45 kg/m2 Cleo Zambrano MD Work Phone: [facility] 08-04-2024 10:45-0400 Body weight 106.14 kg Cleo Zambrano MD Work Phone: [facility] 08-04-2024 10:45-0400 Diastolic blood pressure 70 mm[Hg] Cleo Zambrano MD Work Phone: [facility] 08-04-2024 10:45-0400 Heart rate 87 /min Cleo Zambrano MD Work Phone: [facility] 08-04-2024 10:45-0400 Respiratory rate 16 /min Cleo Zambrano MD Work Phone: [facility] 08-04-2024 10:45-0400 SaO2% (BldA) [Mass fraction] 97 % Cleo Zambrano MD Work Phone: [facility] 08-04-2024 10:45-0400 Systolic blood pressure 112 mm[Hg] Cleo Zambrano MD Work Phone: [facility] 08-02-2024 08:42-0400 Body mass index (BMI) [Ratio] 40.48 kg/m2 Roel Shirlene DO Work Phone: [facility] 08-02-2024 08:42-0400 Body weight 103.65 kg Roel Shirlene DO Work Phone: [facility] 08-02-2024 08:42-0400 Diastolic blood pressure 76 mm[Hg] Roel Shirlene DO Work Phone: [facility] 08-02-2024 08:42-0400 Systolic blood pressure 122 mm[Hg] Roel Shirlene DO Work Phone: [facility] 07-16-2024 11:06-0400 SaO2% (BldA) [Mass fraction] 93 % Loreto Mcneal APRN - JO ANN [facility] [employer] 07-16-2024 11:01-0400 Body height 160 cm Loreto Avaloschris TOBACCO EDUCATOR - ASSOCIATE CHEMIST [facility] Phone[facility] 07-16-2024 11:01-0400 Body mass index (BMI) [Ratio] 38.97 kg/m2 Loreto Avaloschris TOBACCO EDUCATOR - ASSOCIATE CHEMIST [facility] Phone[facility] [employer] 07-16-2024 11:01-0400 Body temperature 97.5 [degF] Loreto Avaloschris TOBACCO EDUCATOR - ASSOCIATE CHEMIST Work Phone: [facility] [employer] 07-16-2024 11:01-0400 Body weight 99.79 kg Loreto Rayoziel TOBACCO EDUCATOR - ASSOCIATE CHEMIST Work Phone: [facility] [employer] 07-16-2024 11:01-0400 Diastolic blood pressure 80 mm[Hg] Loreto Avaloschris TOBACCO EDUCATOR - ASSOCIATE CHEMIST [facility] Phone[facility] 07-16-2024 11:01-0400 Heart rate 100 /min Loreto Fredis TOBACCO EDUCATOR - ASSOCIATE CHEMIST Work Phone[facility] 07-16-2024 11:01-0400 Respiratory rate 16 /min Loreto Avaloschris TOBACCO EDUCATOR - ASSOCIATE CHEMIST [facility] 07-16-2024 11:01-0400 Systolic blood pressure 145 mm[Hg] Loreto Avaloschris TOBACCO EDUCATOR - ASSOCIATE CHEMIST Work Phone: [facility] [employer] 06-30-2024 09:56-0400 Diastolic blood pressure 92 mm[Hg] Roel Shirlene DO Work Phone: [facility] 06-30-2024 09:56-0400 Systolic blood pressure 128 mm[Hg] Roel Shirlene DO Work Phone: [facility] 06-13-2024 09:51-0400 Body height 160 cm Mendez Cradoso DO Work Phone: [facility] 06-13-2024 09:51-0400 Body mass index (BMI) [Ratio] 40.74 kg/m2 Mendez Cardoso DO Work Phone: [facility] 06-13-2024 09:51-0400 Body weight 104.33 kg Mendez Cardoso DO Work Phone: [facility] 06-02-2024 09:30-0400 Body height 160.02 cm Rory Shammo ARMORED SERVICE TECHNICIAN-BC Work Phone: [facility] 06-02-2024 09:30-0400 Body mass index (BMI) [Ratio] 38.7 kg/m2 Rory Shammo ARMORED SERVICE TECHNICIAN-BC Work Phone: [facility] 06-02-2024 09:30-0400 Body weight 99.1 kg Rory Shammo ARMORED SERVICE TECHNICIAN-BC Work Phone: [facility] 06-02-2024 09:30-0400 Diastolic blood pressure 74 mm[Hg] Rory Shammo ARMORED SERVICE TECHNICIAN-BC Work Phone: [facility] 06-02-2024 09:30-0400 Systolic blood pressure 127 mm[Hg] Rory Shammo ARMORED SERVICE TECHNICIAN-BC Work Phone: [facility] 05-26-2024 11:32-0400 Body mass index (BMI) [Ratio] 40.39 kg/m2 Roel Shirlene DO Work Phone: [facility] 05-26-2024 11:32-0400 Body weight 103.42 kg Roel Shirlene DO Work Phone: [facility] 05-26-2024 11:32-0400 Diastolic blood pressure 78 mm[Hg] Roel Shirlene DO Work Phone: [facility] 05-26-2024 11:32-0400 Systolic blood pressure 128 mm[Hg] Roel Shirlene DO Work Phone: [facility] 04-28-2024 10:28-0500 Body height 160 cm Mendez Biedenlorrie DO Work Phone: [facility] 04-28-2024 10:28-0500 Body mass index (BMI) [Ratio] 38.79 kg/m2 Mendez Biedenbach DO Work Phone: [facility] 04-28-2024 10:28-0500 Body weight 99.34 kg Mendez Biedenbach DO Work Phone: [facility] 04-18-2024 10:57-0500 Body mass index (BMI) [Ratio] 38.79 kg/m2 Roel Shirlene DO Work Phone: [facility] 04-18-2024 10:57-0500 Body weight 99.34 kg Roel Shirlene DO Work Phone: [facility] 04-18-2024 10:57-0500 Diastolic blood pressure 84 mm[Hg] Roel Shirlene DO Work Phone: [facility] 04-18-2024 10:57-0500 Systolic blood pressure 138 mm[Hg] Roel Shirlene DO Work Phone: [facility] 04-07-2024 10:31-0500 Body height 160 cm Cleo Zambrano MD Work Phone: [facility] 04-07-2024 10:31-0500 Body mass index (BMI) [Ratio] 39.33 kg/m2 Cleo Zambrano MD Work Phone: [facility] 04-07-2024 10:31-0500 Body weight 100.7 kg Cleo Zambrano MD Work Phone: [facility] 04-07-2024 10:31-0500 Diastolic blood pressure 82 mm[Hg] Cleo Zambrano MD Work Phone: [facility] 04-07-2024 10:31-0500 Heart rate 107 /min Cleo Zambrano MD Work Phone: [facility] 04-07-2024 10:31-0500 Respiratory rate 16 /min Cleo Zambrano MD Work Phone: [facility] 04-07-2024 10:31-0500 SaO2% (BldA) [Mass fraction] 98 % Cleo Zambrano MD Work Phone: [facility] 04-07-2024 10:31-0500 Systolic blood pressure 122 mm[Hg] Cleo Zambrano MD Work Phone: [facility] 01-21-2024 09:35-0500 Body height 160.02 cm Rory [employer] ARMORED SERVICE TECHNICIAN-BC Work Phone: [facility] 01-21-2024 09:35-0500 Body mass index (BMI) [Ratio] 38.8 kg/m2 Rory Shammo ARMORED SERVICE TECHNICIAN-BC Work Phone: [facility] 01-21-2024 09:35-0500 Body weight 99.4 kg Rory [employer] ARMORED SERVICE TECHNICIAN-BC Work Phone: [facility] 01-13-2024 17:30-0500 Diastolic blood pressure 71 mm[Hg] Lisette Junior DO Work Phone: [employer] 01-13-2024 17:30-0500 Heart rate 95 /min Lisette Junior DO Work Phone: [employer] [facility] 01-13-2024 17:30-0500 SaO2% (BldA) [Mass fraction] 99 % Lisette Junior DO Work Phone: [employer] 01-13-2024 17:30-0500 Systolic blood pressure 131 mm[Hg] Lisette Junior DO Work Phone: [employer] 01-13-2024 15:30-0500 Respiratory rate 16 /min Lisette Junior DO Work Phone: [employer] 01-13-2024 14:24-0500 Body height 160 cm Lisette Junior DO Work Phone: [facility] 01-13-2024 14:24-0500 Body mass index (BMI) [Ratio] 37.55 kg/m2 Lisette Junior DO Work Phone: [facility] 01-13-2024 14:24-0500 Body temperature 98.1 [degF] Lisette Junior DO Work Phone: [facility] 01-13-2024 14:24-0500 Body weight 96.16 kg Lisette Junior DO Work Phone: [facility] 11-30-2023 11:10-0400 Body height 160 cm Brittany Spencerr ASSOCIATE CHEMIST Work Phone: [facility] 11-30-2023 11:10-0400 Body mass index (BMI) [Ratio] 35.96 kg/m2 Brittany Gottimor ASSOCIATE CHEMIST Work Phone: [facility] 11-30-2023 11:10-0400 Body weight 92.08 kg Brittany Gilljojor ASSOCIATE CHEMIST Work Phone: [facility] 11-30-2023 10:26-0400 Diastolic blood pressure 70 mm[Hg] Brittany Ana Maríamor ASSOCIATE CHEMIST Work Phone: [facility] 11-30-2023 10:26-0400 Heart rate 90 /min Brittany Ana Maríamor ASSOCIATE CHEMIST Work Phone: [facility] 11-30-2023 10:26-0400 SaO2% (BldA) [Mass fraction] 96 % Brittany Ana Maríamor ASSOCIATE CHEMIST Work Phone: [facility] 11-30-2023 10:26-0400 Systolic blood pressure 118 mm[Hg] Brittany Gottimor ASSOCIATE CHEMIST Work Phone: [facility] 10-08-2023 09:17-0400 Body height 160 cm Dwayne Khoury MD Work Phone: [facility] 10-08-2023 09:17-0400 Body mass index (BMI) [Ratio] 36.36 kg/m2 Dwayne Khoury MD Work Phone: [facility] [employer] [facility] 10-08-2023 09:17-0400 Body weight 93.1 kg Dwayne Khoury MD Work Phone: [facility] 10-08-2023 09:17-0400 Diastolic blood pressure 86 mm[Hg] Dwayne Khoury MD Work Phone: [facility] 10-08-2023 09:17-0400 Heart rate 102 /min Dwayne Khoury MD Work Phone: [facility] 10-08-2023 09:17-0400 Respiratory rate 16 /min Dwayne Khoury MD Work Phone: [facility] 10-08-2023 09:17-0400 Systolic blood pressure 145 mm[Hg] Dwayne Khoury MD Work Phone: [facility] 06-02-2023 14:32-0400 Body mass index [...] Center 05-21-2023 11:22-0400 Body height 160.02 cm [facility] 05-21-2023 11:22-0400 Body mass index (BMI) [Ratio] 36.5 kg/m2 [facility] 05-21-2023 11:22-0400 Body weight 93.44 kg [facility] 05-21-2023 10:39-0400 Body height 160.02 cm [facility] 05-21-2023 10:39-0400 Body mass index (BMI) [Ratio] 36.5 kg/m2 [facility] 05-21-2023 10:39-0400 Body weight 93.49 kg [facility] 05-21-2023 10:39-0400 Diastolic blood pressure 77 mm[Hg] [facility] 05-21-2023 10:39-0400 Heart rate 105 /min [facility] 05-21-2023 10:39-0400 Respiratory rate 18 /min [facility] 05-21-2023 10:39-0400 SaO2% (BldA) [Mass fraction] 95 % [facility] 05-21-2023 10:39-0400 Systolic blood pressure 114 mm[Hg] [facility] 04-28-2023 11:21-0500 Body height 160 cm Gaurav [...] 87 /min Gaurav Sellers PA Work Phone: [facility] 04-28-2023 11:21-0500 Respiratory rate 16 /min Gaurav Sellers PA Work Phone: [facility] 04-28-2023 11:21-0500 SaO2% (BldA) [Mass fraction] 97 % Gaurav CALVO Work Phone: [facility] 04-28-2023 11:21-0500 Systolic blood pressure 122 mm[Hg] Gaurav CALVO Work Phone: [facility] 04-20-2023 12:41-0500 Body mass index (BMI) [Ratio] 36.49 kg/m2 Shawna Rumschlag DO Work Phone: [employer] 04-20-2023 12:41-0500 Body weight 93.44 kg Shawna Rumschlag DO Work Phone: [employer] 04-20-2023 12:41-0500 Diastolic blood pressure 76 mm[Hg] Shawna Rumschlag DO Work Phone: [employer] 04-20-2023 12:41-0500 Heart rate 83 /min Shawna Rumschlag DO Work Phone: [facility] [email or web address] 04-20-2023 12:41-0500 Respiratory rate 16 /min Shawna Rumschlag DO Work Phone: [employer] 04-20-2023 12:41-0500 SaO2% (BldA) [Mass fraction] 98 % Shawna Rumschlag DO Work Phone: [employer] 04-20-2023 12:41-0500 Systolic blood pressure 129 mm[Hg] Shawna Rumschlag DO Work Phone: [facility] [email or web address] 04-20-2023 12:39-0500 Body temperature 97.3 [degF] Shawna Rumschlag DO Work Phone: [facility] [facility] 03-18-2023 11:30-0500 Diastolic blood pressure 84 mm[Hg] MD Yo Blank Work Phone: [facility] 03-18-2023 11:30-0500 Heart rate 95 /min MD Yo Blank Work Phone: [facility] 03-18-2023 11:30-0500 Respiratory rate 16 /min MD Yo Blank Work Phone: [facility] 03-18-2023 11:30-0500 SaO2% (BldA) [Mass fraction] 99 % MD Yo Blank Work Phone: [facility] 03-18-2023 11:30-0500 Systolic blood pressure 123 mm[Hg] MD Yo Blank Work Phone: [facility] 03-05-2023 09:15-0500 Body height 160.02 cm Gayathri Scally Other [employer] Other 03-05-2023 09:15-0500 Body mass index (BMI) [Ratio] 37.57 kg/m2 Gayathri Scally Other [employer] Other 03-05-2023 09:15-0500 Body weight 96.21 kg Gayathri Scally Other [employer] Other 03-05-2023 09:15-0500 Diastolic blood pressure 89 mm[Hg] Gayathri Scally Other [employer] Other 03-05-2023 09:15-0500 Respiratory rate 18 /min Gayathri Scally Other [employer] Other 03-05-2023 09:15-0500 SaO2% (BldA) [Mass fraction] 96 % Gayathri Scally Other [employer] Other 03-05-2023 09:15-0500 Systolic blood pressure 122 mm[Hg] Gayathri Scally Other [employer] Other 03-02-2023 19:24-0500 Body height 160 cm Sil Sullivan DO Work Phone: [employer] 03-02-2023 19:24-0500 Body mass index (BMI) [Ratio] 36.31 kg/m2 Sil Sullivan DO Work Phone: [employer] 03-02-2023 19:24-0500 Body temperature 98.29 [degF] Sil Sullivan DO Work Phone: [employer] 03-02-2023 19:24-0500 Body weight 92.99 kg Sil Sullivan DO Work Phone: [employer] 03-02-2023 19:24-0500 Diastolic blood pressure 98 mm[Hg] Sil Sullivan DO Work Phone: [employer] 03-02-2023 19:24-0500 Heart rate 82 /min Sil Sullivan DO Work Phone: [employer] 03-02-2023 19:24-0500 Respiratory rate 18 /min Sil Sullivan DO Work Phone: [employer] 03-02-2023 19:24-0500 SaO2% (BldA) [Mass fraction] 98 % Sil Sullivan DO Work Phone: [employer] 03-02-2023 19:24-0500 Systolic blood pressure 139 mm[Hg] Sil Sullivan DO Work Phone: [employer] 02-05-2023 09:20-0500 Body height 160.02 cm Jan Garg Other [employer] Other 02-05-2023 09:20-0500 Body mass index (BMI) [Ratio] 36.66 kg/m2 Jan Garg Other [employer] Other 02-05-2023 09:20-0500 Body weight 93.9 kg Jan Garg Other [employer] Other 01-15-2023 09:45-0500 Body height 160.02 cm Gayathri Scally Other [employer] Other 01-15-2023 09:45-0500 Body mass index (BMI) [Ratio] 36.68 kg/m2 Gayathri Scally Other [employer] Other 01-15-2023 09:45-0500 Body weight 93.94 kg Gayathri Scally Other [employer] Other 01-15-2023 09:45-0500 Diastolic blood pressure 83 mm[Hg] Gayathri Scally Other [employer] Other 01-15-2023 09:45-0500 Respiratory rate 18 /min Gayathri Scally Other [employer] Other 01-15-2023 09:45-0500 SaO2% (BldA) [Mass fraction] 99 % Gayathri Scally Other [employer] Other 01-15-2023 09:45-0500 Systolic blood pressure 119 mm[Hg] Gayathri Scally Other [employer] Other 01-07-2023 10:00-0500 Body height 160.02 cm Jan Garg Other [employer] Other 01-07-2023 10:00-0500 Body mass index (BMI) [Ratio] 36.13 kg/m2 Jan Garg Other [employer] Other 01-07-2023 10:00-0500 Body weight 92.53 kg Jan Britany Other [employer] Other 01-07-2023 10:00-0500 Diastolic blood pressure 74 mm[Hg] Jan Scovanner Other [employer] Other 01-07-2023 10:00-0500 Systolic blood pressure 118 mm[Hg] Jan Scovanner Other [employer] Other 08-28-2022 09:00-0400 Body height 160.02 cm Tamar Fitt Other [employer] Other 08-28-2022 09:00-0400 Body mass index (BMI) [Ratio] 35.8 kg/m2 Tamar Fitt Other [employer] Other 08-28-2022 09:00-0400 Body weight 91.67 kg Tamar Fitt Other [employer] Other 07-29-2022 10:15-0400 Body height 160.02 cm Gayathri Scally Other [employer] Other 07-29-2022 10:15-0400 Body mass index (BMI) [Ratio] 35.18 kg/m2 Gayathri Scally Other [employer] Other 07-29-2022 10:15-0400 Body weight 90.08 kg Gayathri Scally Other [employer] Other 07-29-2022 10:15-0400 Diastolic blood pressure 84 mm[Hg] Gayathri Scally Other [employer] Other 07-29-2022 10:15-0400 Respiratory rate 18 /min Gayathri Scally Other [employer] Other 07-29-2022 10:15-0400 SaO2% (BldA) [Mass fraction] 99 % Gayathri Scally Other [employer] Other 07-29-2022 10:15-0400 Systolic blood pressure 127 mm[Hg] Gayathri Scally Other [employer] Other 05-20-2022 11:15-0400 Body height 160.02 cm Gayathri Scally Other [employer] Other 05-20-2022 11:15-0400 Body mass index (BMI) [Ratio] 34.52 kg/m2 Gayathri Scally Other [employer] Other 05-20-2022 11:15-0400 Body weight 88.41 kg Gayathri Scally Other [employer] Other 05-20-2022 11:15-0400 Diastolic blood pressure 82 mm[Hg] Gayathri Scally Other [employer] Other 05-20-2022 11:15-0400 Respiratory rate 18 /min Gayathri Scally Other [employer] Other 05-20-2022 11:15-0400 SaO2% (BldA) [Mass fraction] 97 % Gayathri Scally Other [employer] Other 05-20-2022 11:15-0400 Systolic blood pressure 121 mm[Hg] Gayathri Scally Other [employer] Other 04-08-2022 11:15-0500 Body height 160.02 cm Gayathri Scally Other [employer] Other 04-08-2022 11:15-0500 Body mass index (BMI) [Ratio] 34.49 kg/m2 Gayathri Scally Other [employer] Other 04-08-2022 11:15-0500 Body weight 88.32 kg Gayathri Scally Other [employer] Other 04-08-2022 11:15-0500 Diastolic blood pressure 77 mm[Hg] Gayathri Scally Other [employer] Other 04-08-2022 11:15-0500 Respiratory rate 18 /min Gayathri Scally Other [employer] Other 04-08-2022 11:15-0500 SaO2% (BldA) [Mass fraction] 98 % Gayathri Scally Other [employer] Other 04-08-2022 11:15-0500 Systolic blood pressure 110 mm[Hg] Gayathri Scally Other [employer] Other 04-08-2022 10:15-0500 Body height 160.02 cm Tamar Fitt Other [employer] Other 04-08-2022 10:15-0500 Body mass index (BMI) [Ratio] 34.49 kg/m2 Tamar Fitt Other [employer] Other 02-07-2023 10:15-0500 Body weight 88.32 kg Tamar Fitt Other [employer] Other 02-26-2022 10:00-0500 Body height 160.02 cm Tamar Fitt Other [employer] Other 02-25-2022 11:45-0500 Body height 160.02 cm Gayathri Scally Other [employer] Other 02-25-2022 11:45-0500 Body mass index (BMI) [Ratio] 36.63 kg/m2 Gayathri Scally Other [employer] Other 02-25-2022 11:45-0500 Body weight 93.8 kg Gayathri Scally Other [employer] Other 02-25-2022 11:45-0500 Diastolic blood pressure 78 mm[Hg] Gayathri Scally Other [employer] Other 02-25-2022 11:45-0500 Respiratory rate 18 /min Gayathri Scally Other [employer] Other 02-25-2022 11:45-0500 SaO2% (BldA) [Mass fraction] 97 % Gayathri Scally Other [employer] Other 02-25-2022 11:45-0500 Systolic blood pressure 109 mm[Hg] Gayathri Scally Other [employer] Other 01-14-2022 11:45-0500 Body height 160.02 cm Gayathri Scally Other [employer] Other 01-14-2022 11:45-0500 Body mass index (BMI) [Ratio] 39.37 kg/m2 Gayathri Scally Other [employer] Other 01-14-2022 11:45-0500 Body weight 100.84 kg Gayathri Scally Other [employer] Other 01-14-2022 11:45-0500 Diastolic blood pressure 88 mm[Hg] Gayathri Scally Other [employer] Other 01-14-2022 11:45-0500 Respiratory rate 18 /min Gayathri Scally Other [employer] Other 01-14-2022 11:45-0500 SaO2% (BldA) [Mass fraction] 97 % Gayathri Scally Other [employer] Other 01-14-2022 11:45-0500 Systolic blood pressure 124 mm[Hg] Gayathri Scally Other [employer] Other 12-04-2021 12:00-0400 Body height 160.02 cm Gayathri Scally Other [employer] Other 12-04-2021 12:00-0400 Body mass index (BMI) [Ratio] 39.73 kg/m2 Gayathri Scally Other [employer] Other 12-04-2021 12:00-0400 Body weight 101.74 kg Gayathri Scally Other [employer] Other 12-04-2021 12:00-0400 Diastolic blood pressure 74 mm[Hg] Gayathri Scally Other [employer] Other 12-04-2021 12:00-0400 Respiratory rate 18 /min Gayathri Adams Other [employer] Other 12-04-2021 12:00-0400 SaO2% (BldA) [Mass fraction] 95 % Gayathri Adams Other [employer] Other 12-04-2021 12:00-0400 Systolic blood pressure 110 mm[Hg] Gayathri Adams Other [employer] Other 10-29-2021 11:30-0400 Body height 160.02 cm Yo Blank Other [employer] Other 10-29-2021 11:30-0400 Body mass index (BMI) [Ratio] 38.61 kg/m2 Yo Blank Other [employer] Other 10-29-2021 11:30-0400 Body weight 98.88 kg Yo Blank Other [employer] Other 10-29-2021 11:30-0400 Diastolic blood pressure 74 mm[Hg] Yo Blank Other [employer] Other 10-29-2021 11:30-0400 Systolic blood pressure 111 mm[Hg] Yo Blank Other [employer] Other 10-22-2021 13:26-0400 Body temperature 97.2 [degF] Shawna Rumschlag DO Work Phone: [facility] 10-22-2021 13:26-0400 Diastolic blood pressure 71 mm[Hg] Shawna Rumschlag DO Work Phone: [facility] [email or web address] 10-22-2021 13:26-0400 Heart rate 85 /min Shawna Rumschlag DO Work Phone: [facility] [email or web address] 10-22-2021 13:26-0400 Respiratory rate 16 /min Shawna Rumschlag DO Work Phone: [facility] [email or web address] 10-22-2021 13:26-0400 SaO2% (BldA) [Mass fraction] 94 % Shawna Rumschlag DO Work Phone: [facility] [email or web address] 10-22-2021 13:26-0400 Systolic blood pressure 131 mm[Hg] Shawna Rumschlag DO Work Phone: [facility] [email or web address] 10-11-2021 23:48-0400 Body height 160 cm Daniel Adkins MD Work Phone: [facility] [email or web address] 10-11-2021 23:48-0400 Body mass index (BMI) [Ratio] 36.67 kg/m2 Daniel Adkins MD Work Phone: [employer] 10-11-2021 23:48-0400 Body temperature 98.6 [degF] Daniel Adkins MD Work Phone: [facility] [email or web address] 10-11-2021 23:48-0400 Body weight 93.89 kg Daniel Adkins MD Work Phone: [facility] [email or web address] 10-11-2021 23:48-0400 Diastolic blood pressure 88 mm[Hg] Daniel Adkins MD Work Phone: [employer] 10-11-2021 23:48-0400 Heart rate 97 /min Daniel Adkins MD Work Phone: [facility] [email or web address] 10-11-2021 23:48-0400 Respiratory rate 16 /min Daniel Adkins MD Work Phone: [facility] [email or web address] 10-11-2021 23:48-0400 SaO2% (BldA) [Mass fraction] 96 % Daniel Adkins MD Work Phone: [employer] 10-11-2021 23:48-0400 Systolic blood pressure 134 mm[Hg] Daniel Adkins MD Work Phone: [facility] [email or web address] Encounters Encounter Date Encounter Type Care Provider Facility Start: 09-21-2024 End: 09-21-2024 External Result Encounter Mendez Ahumada Walker DO Work Phone: [facility] External Department Unsolicited Start: 09-21-2024 End: 09-21-2024 External Result Encounter Mendez Ahumada Walker DO Work Phone: [facility] External Department Unsolicited Start: 09-21-2024 End: 09-21-2024 Admission to same day surgery center Mendez Cardoso DO [facility] Start: 09-21-2024 End: 09-21-2024 ambulatory Loreto Mcneal APRN Work Phone: [facility] Work Phone: Start: 09-20-2024 End: 09-20-2024 Bamboo flowsheet Mendez Cardoso DO Work Phone: [facility] Start: 09-20-2024 End: 09-20-2024 Bamboo flowsheet Mendez Cardoso DO Work Phone: [facility] Start: 09-20-2024 End: 09-20-2024 ambulatory MENDEZ Ahumada WALKER Not Available Start: 09-20-2024 End: 09-20-2024 Postop follow up visit related to original px Mendez Cardoso DO Work Phone: [facility] Comment on above: Obstructive sleep ap austin (Primary Dx); Class 3 severe obesity with serious comorbidity and body mass index (BMI) of 40.0 to 44.9 in adult, unspecified obesity type ([facility]); Breakdown (mechanical) of implanted electronic neurostimulator, generator, sequela Start: 09-06-2024 End: 09-06-2024 Telephone encounter Dwayne Khoury MD Work Phone: [facility] Start: 09-01-2024 End: 09-01-2024 Bamboo flowsheet Mendez Cardoso DO Work Phone: [facility] Start: 09-01-2024 End: 09-01-2024 Bamboo flowsheet Mendez Cardoso DO Work Phone: [facility] Start: 09-01-2024 End: 09-01-2024 ambulatory MENDEZ CARDOSO Not Available Start: 09-01-2024 End: 09-01-2024 Postop follow up visit related to original px Mendez Cardoso DO Work Phone: [facility] Comment on above: Obstructive sleep ap austin (Primary Dx) Start: 08-19-2024 End: 08-19-2024 Bamboo flowsheet Mendez Cardoso DO Work Phone: [facility] Start: 08-19-2024 End: 08-19-2024 Bamboo flowsheet Mendez Cardoso DO Work Phone: [facility] Start: 08-19-2024 End: 08-19-2024 ambulatory MENDEZ CARDOSO Not Available Start: 08-19-2024 End: 08-19-2024 Postop follow up visit related to original px Mendez Cardoso DO Work Phone: [facility] Comment on above: Obstructive sleep ap austin (Primary Dx); Intolerance of continuous positive airway pressure (CPAP) ventilation Start: 08-18-2024 End: 08-18-2024 Evaluation and management of inpatient ANA PAULA INGRAM [facility] Start: 08-10-2024 End: 08-10-2024 External Result Encounter Mendez Ahumada Flacolizzie DO Work Phone: [facility] External Department Unsolicited Start: 08-10-2024 End: 08-10-2024 External Result Encounter Mendez Cardoso DO Work Phone: [facility] External Department Unsolicited Start: 08-10-2024 End: 08-10-2024 Admission to same day surgery center Loreto Fredis SILVESTREN Work Phone: [facility] Start: 08-10-2024 End: 08-10-2024 ambulatory Loreto Chase Baileyjulietaoziel TOBACCO EDUCATOR Work Phone: [facility] Work Phone: Start: 08-08-2024 End: 08-08-2024 ambulatory Loreto Chase Fredis TOBACCO EDUCATOR Work Phone: [facility] Work Phone: Start: 08-08-2024 End: 08-08-2024 Patient encounter procedure Loreto Mcneal TOBACCO EDUCATOR Work Phone: [facility] Work Phone: Start: 08-04-2024 End: 08-04-2024 Bamboo flowsheet Cleo Zambrano MD Work Phone: [facility] Start: 08-04-2024 End: 08-04-2024 Bamboo flowsheet Cleo Zambrano MD Work Phone: [facility] Start: 08-04-2024 End: 08-04-2024 ambulatory CLEO ZAMBRANO Not Available Start: 08-04-2024 End: 08-04-2024 Office outpatient visit 25 minutes Cleo Zambrano MD Work Phone: [facility] Comment on above: Type 2 diabetes mine itus without complication, unspecified whether long chain beamer insulin use (Primary Dx); Vitamin D deficiency; Weight gain; Encounter for dietary consultation; Hyperlipemia, mixed (CMS/HCC); Class 3 severe obesity due to excess calories without serious comorbidity with body mass index (BMI) of 40.0 to 44.9 in adult Start: 08-02-2024 End: 08-02-2024 Bamboo flowsheet Roel Shirlene DO Work Phone: [facility] Start: 08-02-2024 End: 08-02-2024 Bamboo flowsheet Roel Shirlene DO Work Phone: [facility] Start: 08-02-2024 End: 08-02-2024 ambulatory ROEL SHIRLENE Not Available Start: 08-02-2024 End: 08-02-2024 Office outpatient visit 15 minutes Roel Shirlene DO Work Phone: [facility] Comment on above: Itching with irritat ion; Nexplanon removal Start: 07-27-2024 End: 07-27-2024 Patient encounter procedure Loreto Mcneal TOBACCO EDUCATOR Work Phone: [facility] Work Phone: Start: 07-27-2024 End: 07-27-2024 ambulatory Loreto Mcneal TOBACCO EDUCATOR Work Phone: [facility] Work Phone: Start: 07-20-2024 End: 07-20-2024 Telephone encounter Cleo Zambrano MD Work Phone: [facility] Comment on above: Advice Only Start: 07-16-2024 End: 07-16-2024 Emergency department patient visit LORETO Jin [facility] Comment on above: Post-traumatic osteo arthritis of left ankle (Primary Dx); Midline low back pain without sciatica, unspecified chronicity Start: 06-30-2024 End: 06-30-2024 Patient encounter procedure Roel Shirlene DO Work Phone: [facility] Comment on above: Nexplanon removal Start: 06-30-2024 End: 06-30-2024 ambulatory ROEL SHIRLENE Not Available Start: 06-27-2024 End: 06-27-2024 ambulatory Ugo Bourgeois MD Facility:[facility] Start: 06-20-2024 End: 06-20-2024 ambulatory [facility] Start: 06-13-2024 End: 06-13-2024 Bamboo flowsheet Mendez Cardoso DO Work Phone: [facility] Start: 06-13-2024 End: 06-13-2024 Bamboo flowsheet Mendez Cardoso DO Work Phone: [facility] Start: 06-13-2024 End: 06-13-2024 Office outpatient visit 15 minutes Mendez Cardoso DO Work Phone: [facility] Comment on above: Obstructive sleep ap austin (Primary Dx); Intolerance of continuous positive airway pressure (CPAP) ventilation; Class 3 severe obesity with serious comorbidity and body mass index (BMI) of 40.0 to 44.9 in adult, unspecified obesity type Start: 06-13-2024 End: 06-13-2024 ambulatory MENDEZ CARDOSO Not Available Start: 06-02-2024 End: 06-02-2024 ambulatory Rory T Shammo ARMORED SERVICE TECHNICIAN-BC Work Phone: [facility] Work Phone: Start: 06-02-2024 End: 06-02-2024 Patient encounter procedure Rory Shammo ARMORED SERVICE TECHNICIAN-BC Work Phone: [facility] Work Phone: Start: 05-27-2024 End: 05-27-2024 Clinisync Result Encounter Roel Shirlene DO Work Phone: [facility] External Department Unsolicited Start: 05-27-2024 End: 05-27-2024 Clinisync Result Encounter Roel Shirlene DO Work Phone: [facility] External Department Unsolicited Start: 05-26-2024 End: 05-31-2024 Clinisync Result Encounter Roel Shirlene DO Work Phone: [facility] External Department Unsolicited Start: 05-26-2024 End: 05-31-2024 Clinisync Result Encounter Roel Arto DO Work Phone: [facility] External Department Unsolicited Start: 05-26-2024 End: 05-26-2024 Patient encounter procedure Roel Arto DO Work Phone: [facility] Start: 05-26-2024 End: 05-26-2024 Periodic preventive med est patient 40-64yrs Roel Arto DO Work Phone: [facility] Comment on above: Well woman exam with routine gynecological exam; Breast cancer screening by mammogram Start: 05-26-2024 End: 05-26-2024 ambulatory ROEL GARBER Not Available Start: 05-10-2024 End: 05-10-2024 ambulatory LAILA SANTOS Not Available Start: 05-09-2024 End: 05-09-2024 ambulatory Ugo Bourgeois MD Facility:[facility] Start: 04-28-2024 End: 04-28-2024 Office outpatient visit 25 minutes Mendez Cardoso DO Work Phone: [facility] Comment on above: Obstructive sleep ap austin (Primary Dx); Intolerance of continuous positive airway pressure (CPAP) ventilation; Body mass index 34.0-34.9, adult Start: 04-28-2024 End: 04-28-2024 ambulatory MENDEZ CARDOSO Not Available Start: 04-25-2024 End: 04-25-2024 Bamboo flowsheet Brittany Neville ASSOCIATE CHEMIST Work Phone: [facility] Start: 04-25-2024 End: 04-25-2024 Bamboo flowsheet Brittany Neville ASSOCIATE CHEMIST Work Phone: [facility] Start: 04-18-2024 End: 04-18-2024 Bamboo flowsheet Roel Shirlene DO Work Phone: [facility] Start: 04-18-2024 End: 04-18-2024 Bamboo flowsheet Roel Shirlene DO Work Phone: [facility] Start: 04-18-2024 End: 04-18-2024 Clinisync Result Encounter Roel Shirlene DO Work Phone: [facility] External Department Unsolicited Start: 04-18-2024 End: 04-18-2024 ambulatory ROEL SHIRLENE Not Available Start: 04-18-2024 End: 04-18-2024 Office outpatient visit 15 minutes Roel Shirlene DO Work Phone: [facility] Comment on above: Hormone imbalance; Hormone disorder; Toenail fungus Start: 04-13-2024 End: 04-14-2024 Telephone encounter Cleo Zambrano MD Work Phone: [facility] Comment on above: Prior Authorization Start: 04-07-2024 End: 04-07-2024 Bamboo flowsheet Cleo Zambrano MD Work Phone: [facility] Start: 04-07-2024 End: 04-07-2024 Bamboo flowsheet Cleo Zambrano MD Work Phone: [facility] Start: 04-07-2024 End: 04-07-2024 ambulatory CLEO ZAMBRANO Not Available Start: 04-07-2024 End: 04-07-2024 Office outpatient visit 25 minutes Cleo Zambrano MD Work Phone: [facility] Comment on above: Type 2 diabetes mine itus without complication, unspecified whether long chain beamer insulin use ([facility]) (Primary Dx); Vitamin D deficiency; Weight gain; Encounter for dietary consultation; Hyperlipemia, mixed ([facility]); Class 2 severe obesity due to excess calories with serious comorbidity and body mass index (BMI) of 39.0 to 39.9 in adult ([facility]) Start: 04-04-2024 Non-patient / Non-visit Rory Driver ARMORED SERVICE TECHNICIAN-BC Work Phone: [facility] Work Phone: Start: 03-09-2024 End: 03-09-2024 ambulatory Roryjosr Driver ARMORED SERVICE TECHNICIAN-BC Work Phone: [facility] Work Phone: Start: 03-09-2024 End: 03-09-2024 Depart[address] Rory Driver [facility]- Work Phone: [facility]-LAB [facility] Start: 02-29-2024 End: 03-03-2024 Refill Paula Sanderson MD Work Phone: [facility] Comment on above: Chronic rhinitis Start: 02-16-2024 End: 02-17-2024 Telephone encounter Cleo Zambrano MD Work Phone: [facility] Comment on above: Medication Problem Start: 02-09-2024 End: 02-09-2024 Subsequent hospital visit by physician Jan [facility]stead [facility] Start: 02-09-2024 ambulatory [facility] Start: 02-01-2024 End: 02-01-2024 ambulatory [facility] Start: 01-26-2024 End: 01-26-2024 ambulatory [facility] Start: 01-26-2024 End: 01-26-2024 Subsequent hospital visit by physician Tamar Silveira PT [facility] Comment on above: Arrived Start: 01-21-2024 End: 01-21-2024 Patient encounter procedure Rory Driver [facility]- Work Phone: [facility] Work Phone: Start: 01-13-2024 End: 01-13-2024 Emergency department patient visit Lisette Junior DO Work Phone: [facility] Comment on above: Dizziness (Primary D x) Start: 01-11-2024 End: 01-11-2024 ambulatory [facility] Start: 12-29-2023 End: 12-29-2023 Subsequent hospital visit by physician Tamar Silveira PT [facility] Physical Therapy Start: 12-21-2023 End: 12-21-2023 ambulatory CARMEN FISHER [facility] Start: 12-15-2023 End: 12-15-2023 ambulatory [facility] Start: 12-01-2023 End: 12-01-2023 ambulatory [facility] Start: 11-30-2023 End: 11-30-2023 Bamboo flowsheet Brittany Neville ASSOCIATE CHEMIST Work Phone: [facility] Start: 11-30-2023 End: 11-30-2023 Bamboo flowsheet Brittany Neville ASSOCIATE CHEMIST Work Phone: [facility] Start: 11-30-2023 End: 11-30-2023 Telephone encounter Brittany Neville ASSOCIATE CHEMIST [facility] Start: 11-30-2023 End: 11-30-2023 ambulatory BRITTANY NEVILLE Not Available Start: 11-30-2023 End: 11-30-2023 Office outpatient visit 25 minutes Brittany Neville ASSOCIATE CHEMIST [facility] Comment on above: JADON (obstructive sle ep apnea) (Primary Dx); Tension headache; Chronic bilateral low back pain, unspecified whether sciatica present; Paresthesias Start: 11-17-2023 End: 11-17-2023 ambulatory [facility] Start: 11-17-2023 End: 11-17-2023 Subsequent hospital visit by physician Tamar Silveira PT [facility] Physical Therapy Comment on above: Arrived Start: 11-16-2023 End: 11-16-2023 ambulatory Ugo Bourgeois MD [facility] Start: 10-20-2023 End: 10-20-2023 ambulatory [facility] Start: 10-20-2023 End: 10-20-2023 Subsequent hospital visit by physician Jan Olmstead PT [facility] Physical Therapy Comment on above: Arrived Start: 10-08-2023 End: 10-08-2023 Office outpatient new 30 minutes Dwayne Khoury MD Work Phone: [facility] Comment on above: Macromastia (Primary Dx) Start: 10-08-2023 End: 10-08-2023 ambulatory DWAYNE KHOURY [facility] Start: 10-06-2023 End: 10-07-2023 Emergency department patient visit [facility] Start: 10-05-2023 End: 10-05-2023 Emergency department patient visit [facility] Start: 10-05-2023 End: 10-05-2023 Emergency department patient visit [facility] Start: 09-22-2023 End: 09-22-2023 Subsequent hospital visit by physician Jan Olmstead PT [facility] Physical Therapy Start: 09-15-2023 End: 09-15-2023 ambulatory SHAWNA BOGDAN [facility] Start: 09-08-2023 End: 09-17-2023 Telephone encounter Argenis Storm RN [facility] Comment on above: Med Refill Start: 09-07-2023 End: 09-07-2023 ambulatory SHAWNA EDWARG N[facility] Start: 09-01-2023 End: 09-01-2023 ambulatory SHAWNA RUMSCHELIZABETHG [facility] Start: 08-26-2023 End: 08-26-2023 ambulatory SHAWNA RUMNAFISAG [facility] Start: 08-26-2023 End: 08-26-2023 Subsequent hospital visit by physician Kofi Villegas PT [facility] Physical Therapy Comment on above: Arrived Start: 08-21-2023 End: 08-21-2023 ambulatory SHAWNA RUMSCHELIZABETHG [facility] Start: 08-21-2023 End: 08-21-2023 Subsequent hospital visit by physician Jan Olmstead PT [facility] Physical Therapy Comment on above: Arrived Start: 08-19-2023 End: 09-07-2023 Telephone encounter Margaux Olea [facility] Start: 08-11-2023 End: 08-11-2023 ambulatory [facility]OGDAN [facility] Start: 08-11-2023 End: 08-11-2023 Subsequent hospital visit by physician Jan Olmstead PT [facility] Physical Therapy Comment on above: Arrived Start: 08-04-2023 End: 08-04-2023 ambulatory SHAWNA BOGDAN Jin [facility] Start: 07-29-2023 End: 07-29-2023 ambulatory [facility] Start: 07-14-2023 End: 07-14-2023 Subsequent hospital visit by physician Rebecca Skinner PT [facility] Physical Therapy Start: 07-07-2023 End: 07-16-2023 Telephone encounter Maty Fulton RN [facility] Start: 06-03-2023 ambulatory [facility] Start: 06-02-2023 End: 06-02-2023 Office outpatient new 30 minutes Deepika Robledo MD Work Phone: [facility] Surgical Oncology Comment on above: Mass of upper outer quadrant of right breast (Primary Dx); Abnormal mammogram; Symptomatic mammary hypertrophy Start: 06-02-2023 End: 06-02-2023 ambulatory DEEPIKA ROBLEDO [facility] Start: 05-25-2023 Patient encounter procedure Brittany Neville ASSOCIATE CHEMIST Work Phone: [facility] Start: 05-21-2023 End: 05-21-2023 Patient encounter procedure [facility] G[facility] Work Phone: Start: 05-21-2023 End: 05-21-2023 Patient encounter procedure [facility] Work Phone: Start: 05-12-2023 Telephone encounter Deepika Robledo MD Work Phone: [facility] Surgical On[facility] Start: 05-06-2023 End: 05-06-2023 Subsequent hospital visit by physician Rojas Altamirano HOSPITAL DIRECTOR [facility] Physical Therapy Comment on above: Arrived Start: 04-30-2023 Refill Maty Fulton RN [facility] Start: 04-28-2023 End: 04-28-2023 ambulatory GAURAV SELLERS [facility] Start: 04-28-2023 End: 04-28-2023 Office outpatient visit 25 minutes Gaurav Sellers PA Work Phone: [facility] Comment on above: 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 (Primary Dx) Start: 04-20-2023 End: 04-20-2023 Emergency department patient visit Shawna Mcfadden DO Work Phone: [facility] Comment on above: Closed head injury, initial encounter (Primary Dx); Fall due to slipping on ice or snow, initial encounter; Acute cervical myofascial strain, initial encounter Start: 03-31-2023 Refill Patricia Clay RN [facility] Start: 03-27-2023 End: 03-27-2023 ambulatory PETE SILVER [facility] Start: 03-18-2023 End: 03-18-2023 ambulatory Jan Garg Other [employer] Other Start: 03-18-2023 Telephone encounter Jan Peterson [facility] Start: 03-18-2023 Non-patient / Non-visit MD Selvin Blank Work Phone: [facility] Gastroenterology Work Phone: Start: 03-17-2023 End: 03-17-2023 ambulatory Jan Garg Other [employer] Other Start: 03-17-2023 Telephone encounter Jan Peterson [facility] Start: 03-16-2023 Encounter for genera l adult medical examination without abnormal findings [facility] Start: 03-16-2023 End: 03-16-2023 ambulatory RORY HANANEJOJO [facility] Start: 03-10-2023 End: 03-10-2023 Subsequent hospital visit by physician Tamar Silveira PT [facility] Comment on above: Arrived Start: 03-05-2023 (FCCCWMNF/U) Weight Management f/u Gayathri Adams [facility] Start: 03-05-2023 End: 03-05-2023 ambulatory Gayathri Adams Other [employer] Other Start: 03-05-2023 Registered Recurring MD Monserrat Blank Work Phone: [facility] Work Phone: Start: 03-02-2023 End: 03-02-2023 Emergency department patient visit Sil Sullivan DO Work Phone: [facility] Comment on above: Constipation, unspec ified constipation type (Primary Dx) Start: 02-26-2023 End: 02-26-2023 ambulatory Jan Garg Other [employer] Other Start: 02-26-2023 Telephone encounter Jan Peterson [facility] Start: 02-20-2023 Telephone encounter Argenis Storm RN [facility] Comment on above: Medication, DME Start: 02-18-2023 End: 02-18-2023 ambulatory Jan Garg Other [employer] Other Start: 02-18-2023 Telephone encounter Jan Peterson [facility] Start: 02-10-2023 Telephone encounter Margaux Olea [facility] Start: 02-05-2023 End: 02-05-2023 ambulatory Jan Garg Other [employer] Other Start: 02-05-2023 Office outpatient vi sit 15 minutes Jan Garg [facility] Start: 01-15-2023 (FCCCWMNF/U) [facility] Start: 01-15-2023 End: 01-15-2023 ambulatory Gayathri Adams Other [employer] Other Start: 01-07-2023 End: 01-07-2023 ambulatory Jan Garg Other [employer] Other Start: 01-07-2023 Office outpatient vi sit 15 minutes Jan Garg [facility] Start: 09-25-2022 End: 01-16-2023 ambulatory RESTAURANT MAINTENANCE TECHNICIAN YUE GRANADO Facility:[facility] Start: 09-25-2022 End: 01-15-2023 Recurring YUE GRANADO [facility] Start: 09-17-2022 End: 09-17-2022 ambulatory Gayathri Adams Other [employer] Other Start: 09-17-2022 Telephone encounter Gayathri Adams [facility] [facility] [facility] Start: 08-28-2022 ([facility] RD FU) [facility] F/ U [employer] Tamar Sosa [facility] Start: 08-28-2022 End: 08-28-2022 ambulatory Tamar Sosa Other [employer] Other Start: 07-29-2022 [facility] Weight Management f/u Gayathri Angie [facility] Start: 07-29-2022 End: 07-29-2022 ambulatory Gayathrimarino Adams Other [employer] Other Start: 05-20-2022 [facility] Weight Management f/u Gayathri Angie [facility] Start: 05-20-2022 End: 05-20-2022 ambulatory Gayathrimarino Barahonaly Other [employer] Other Start: 05-19-2022 End: 05-19-[address] ROEL GARBER . Facility:[facility] Start: 05-07-2022 End: 05-08-[address] DOCTOR ARREOLA Facility:[facility] Start: 04-09-2022 End: 04-09-2022 ambulatory Gayathri Adams Other [employer] Other Start: 04-09-2022 Telephone encounter Gayathri Adams [facility] Start: 04-08-2022 ([facility] WMNI) WMN Init ial Provider Tamar Sosa [facility] Start: 04-08-2022 ([facility] Weight Management f/u Gayathrikasia Adams [facility] Start: 04-08-2022 End: 04-08-2022 ambulatory Tamar Fitt Other [employer] Other Start: 02-26-2022 End: 02-26-2022 ambulatory Tamar Fitt Other [employer] Other Start: 02-26-2022 IBT FOR OBESITY GROU P 2-10 30M Tamar Sosa [facility] Start: 02-25-2022 ([facility] Weight Management f/u Gayathri Adams [facility] Start: 02-25-2022 End: 02-25-2022 ambulatory Gayathri Adams Other [employer] Other Start: 02-17-2022 End: 02-18-2022 ambulatory RORY BERNABE Facility:[facility] Start: 01-29-2022 End: 01-30-2022 ambulatory JOY ARAMBULA Facility:[facility] Start: 01-14-2022 ([facility] Weight Management f/u Gayathri Adams [facility] Start: 01-14-2022 End: 01-14-2022 ambulatory Gayathri Adams Other [employer] Other Start: 12-05-2021 End: 12-05-2021 ambulatory Gayathri Adams Other [employer] Other Start: 12-05-2021 Telephone encounter Gayathri [facility] Start: 12-04-2021 End: 12-04-2021 ambulatory Gayathri Adams Other [employer] Other Start: 12-04-2021 Nutrition therapy Gayathri gruber [facility] Start: 10-29-2021 End: 10-29-2021 ambulatory oY Blank Other [employer] Other Start: 10-29-2021 Patient encounter procedure Yo Blank [facility] Start: 10-22-2021 End: 10-22-2021 Emergency department patient visit Shawna Mcfadden DO Work Phone: [facility] Comment on above: Acute diffuse otitis externa of left ear (Primary Dx) Start: 10-11-2021 End: 10-12-2021 Emergency department patient visit Daniel Adkins MD Work Phone: [facility] Comment on above: Pilonidal cyst (Prim romero Dx) Start: 11-21-2016 End: 11-26-2016 [facility] Procedures Date Procedure Procedure Detail Performing Clinician Start: 09-21-2024 Neurostimulation of cranial nerve Loreto Mcneal TOBACCO EDUCATOR Work Phone: Start: 09-21-2024 GLUCOSE POCT GLUCOMETERS Mendez Cardoso DO Work Phone: Start: 08-10-2024 GLUCOSE POCT GLUCOMETERS Mendez Cardoso DO Work Phone: Start: 08-10-2024 Plain chest X-ray Yi johnny Mcneal TOBACCO EDUCATOR Work Phone: Start: 08-10-2024 Neurostimulation of cranial nerve Loreto Mcneal TOBACCO EDUCATOR Work Phone: Start: 08-10-2024 GLUCOSE POCT GLUCOMETERS Mendez Cardoso DO Work Phone: Start: 08-04-2024 Gluc bld gluc mntr d ev cleared fda spec home use Cleo Zambrano MD Work Phone: Start: 07-16-2024 Urnls dip stick/tabl et reagent auto microscopy Prieto Daniel PA-C Work Phone: Start: 07-16-2024 End: 07-16-2024 Radex spine lumbosacral 2/3 views Prieto Daniel PA-C Work Phone: Start: 06-30-2024 PYROTECHNICS PRESS TENDER INSERTION/REMOVA L OF CONTRACEPTIVE CAPSULE Roel Shirlene [...] Start: 03-09-2024 Streptococcus pyogen es culture Rory Shammo ARMORED SERVICE TECHNICIAN-BC Work Phone: Start: 01-13-2024 Urinalysis microscopic only Lisette Perez Junior DO Work Phone: Start: 01-13-2024 Urnls dip stick/tabl et rgnt auto w/o microscopy Lisette Ana Junior DO Work Phone: Start: 01-13-2024 Ecg routine ecg w/le ast 12 lds w/i&r Lisette Perez Junior DO Work Phone: Start: 01-13-2024 Comprehensive metabolic panel Lisette Perez Junior DO Work Phone: Start: 05-25-2023 Microscopic observat ion [Identifier] in Cervix by Cyto stain Deepika Robledo MD Work Phone: Start: 04-20-2023 Ct cervical spine w/ o contrast material Precious Urbina TOBACCO EDUCATOR - RESTAURANT MAINTENANCE TECHNICIAN Work Phone: Start: 04-20-2023 Ct head/brain w/o co ntrast material Precious Cunningham Carlitos TOBACCO EDUCATOR - RESTAURANT MAINTENANCE TECHNICIAN Work Phone: Start: 03-16-2023 Mammography Brittany yoo ASSOCIATE CHEMIST Work Phone: Start: 05-02-2022 Microalbumin [Mass/v olume] in Urine by Test strip Patricia Clay RN Start: 05-02-2020 Adult depression scr eening assessment Argenis Storm RN Start: 08-30-2016 Cholecystectomy YUE LOPEZ TERBrandyn Start: 01-03-2013 nasal surgery YUE MENDEZE RS Tonsillectomy YUE GRANADO Plan of Treatment Date Care Activity Detail Author Start: 09-03-2031 DTaP,Tdap and Td Vaccines (2 - Td or Tdap) DTaP,Tdap and Td Vaccines (2 - Td or Tdap) [facility] Start: 05-20-2027 Screening for malignant neoplasm of cervix [facility] Start: 05-24-2026 Screening for malignant neoplasm of cervix Pap Smear [facility] Start: 08-18-2025 Adult BMI Screening Adult BMI Screening [facility] Start: 08-18-2025 End: 08-18-2025 Patient encounter procedure 08/18/2025 2:00 PM EDT Office Visit [facility] [place] [address] [place] [address] Mendez Cardoso DO [address] [place] [address] [facility] [place] Start: 08-18-2025 Tobacco Screening Tobacco Screening [facility] Start: 05-31-2025 End: 05-31-2025 Patient encounter procedure [facility] Start: 05-27-2025 Screening for malignant neoplasm of breast Mammogram [facility] Start: 03-16-2025 Screening for malignant neoplasm of breast Breast cancer screen [facility] Start: 12-01-2024 End: 12-01-2024 Patient encounter procedure 12/01/2024 11:00 AM EDT Office Visit [facility] [address] [place] [address] Cleo Zambrano MD [address] [place] [address] [facility] Start: 11-10-2024 End: 11-10-2024 Patient encounter procedure 11/10/2024 11:30 AM EDT Office Visit [facility] Part of [address] [place] [address] Karen Cotter, TOBACCO EDUCATOR - RESTAURANT MAINTENANCE TECHNICIAN [address] [place] [address] [address] [place] [address] 1 year [facility] Part of [facility] Comment on above: 1 year [facility] Start: 10-31-2024 Influenza vaccination [facility] Start: 10-07-2024 Adult BMI Screening Adult BMI Screening [facility] Start: 10-07-2024 Tobacco Screening Tobacco Screening [facility] Start: 09-29-2024 End: 09-29-2024 Patient encounter procedure 09/29/2024 10:15 AM EDT Office Visit [facility] [place] [address] [place] [address] Mendez Cardoso DO [address] [place] [address] [facility] [place] Start: 09-26-2024 End: 09-26-2024 Patient encounter procedure 09/26/2024 2:20 PM EDT Office Visit [facility] [address] [place] [address] Brittany Neville, ASSOCIATE CHEMIST [address] [place], [place] [facility] Start: 09-21-2024 [facility] Start: 09-21-2024 [facility] Start: 08-18-2024 End: 08-18-2024 Patient encounter procedure 08/18/2024 9:45 AM EDT Office Visit [facility] [place] [address] [place] [place] [address] Mendez Cardoso DO [address] [place] [address] [facility] HORNY Start: 08-10-2024 [facility] Start: 08-10-2024 [facility] Start: 08-04-2024 End: 08-04-2024 Patient encounter procedure 08/04/2024 10:30 AM EDT Office Visit [facility] [address] [place] [address] Cleo Zambrano MD [address] [place] [address] [facility] Start: 08-03-2024 End: 08-03-2024 Patient encounter procedure 08/03/2024 8:40 AM EDT Office Visit TIG[facility] MENDO[facility] [address] [place] [phone] Brittany Neville, ASSOCIATE CHEMIST [address] [place] [facility] [facility] Start: 08-02-2024 End: 08-02-2025 XR Humerus - left Views XR humerus left Imaging Routine Nexplanon removal Expected: 08/02/2024, Expires: 08/02/2025 [facility] Work Phone: Comment on above: Expected: 08/02/2024, Expires: Start: 06-13-2024 End: 06-13-2024 Patient encounter procedure 06/13/2024 9:45 AM EDT Office Visit [facility] [place] [address] [place] [address] Mendez Cardoso, DO [address] [place] [address] Arrived [facility] [place] Comment on above: Arrived Start: 06-10-2024 End: 06-10-2024 Patient encounter procedure 06/10/2024 10:45 AM EDT Office Visit [facility] [place] [address] [place] [address] Mendez Cardoso, DO [address] [place] [address] [facility] [place] Start: 06-01-2024 Adult BMI Screening Adult BMI Screening [facility] Start: 05-26-2024 End: 07-26-2025 MG Breast - bilateral Screening Bilateral screening mammogram Imaging Routine Breast cancer screening by mammogram Expected: 05/26/2024 (Approximate), Expires: 07/26/2025 [facility] Work Phone: Comment on above: Expected: 05/26/2024 (Approximate), Expi res: 07/26/2025 Start: 05-26-2024 End: 05-26-2024 Patient encounter procedure 05/26/2024 11:00 AM EDT Office Visit [facility] [address] [place] [address] Roel Garber DO [address] [place] [address] [facility] Start: 05-04-2024 End: 05-04-2024 Patient encounter procedure 05/04/2024 8:20 AM EST Office Visit TIGRE MENDO[facility] [address] [facility] [place] [address] Brittany Neville NP [address] [place] [address] TIGRE [place] Start: 04-28-2024 Adult BMI Screening Adult BMI Screening [facility] Start: 04-28-2024 Tobacco Screening Tobacco Screening [facility] Start: 04-28-2024 End: 04-28-2024 Patient encounter procedure 04/28/2024 10:30 AM EST Office Visit [place]A [place] [address] [place] [address] Mendez Cardoso DO [address] [place] [address] [facility] [place] Start: 04-25-2024 End: 04-25-2024 Patient encounter procedure 04/25/2024 9:00 AM EST Office Visit TIGRE HORNY [address] [address] [place] [address] Brittany Neville, JO ANN [address] [facility] [place] [facility] Start: 04-18-2024 End: 04-18-2025 C-peptide C-peptide Lab Routine Hormone imbalance Hormone disorder Expected: 04/18/2024 (Approximate), Expires: 04/18/2025 [facility] Comment on above: Expected: 04/18/2024 (Approximate), Expi res: 04/18/2025 Start: 04-18-2024 End: 04-18-2025 Cortisol free Cortisol, free Lab Routine Hormone imbalance Hormone disorder Expected: 04/18/2024 (Approximate), Expires: 04/18/2025 [facility] Comment on above: Expected: 04/18/2024 [...] procedure 04/18/2024 10:50 AM EST Office Visit [facility] [address] [place] [phone] Roel Garber, DO [address] [place] [address] [facility] Start: 04-07-2024 End: 04-07-2025 25-hydroxyvitamin D3 [Mass/volume] in Serum or Plasma Vitamin D 25 hydroxy Total Lab Routine 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, unspecified whether nursing home insulin use (CMS/HCC) Expected: 04/07/2024 (Approximate), Expires: 04/07/2025 [facility] Work Phone: Comment on above: Expected: 04/07/2024 (Approximate), Expi res: 04/07/2025 Start: 04-07-2024 End: 04-07-2025 Lipid 1996 panel - Serum or Plasma Lipid panel Lab Routine 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, unspecified whether long chain beamer insulin use (CMS/HCC) Expected: 04/07/2024 (Approximate), Expires: 04/07/2025 [facility] Comment on above: Expected: 04/07/2024 (Approximate), Expi res: 04/07/2025 Start: 04-07-2024 End: 04-07-2025 Microalbumin/Creatinine panel in random Urine Microalbumin / creatinine urine ratio Lab Routine 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, unspecified whether long chain beamer insulin use (CMS/HCC) Expected: 04/07/2024 (Approximate), Expires: 04/07/2025 [facility] Comment on above: Expected: 04/07/2024 (Approximate), Expi res: 04/07/2025 Start: 04-07-2024 End: 04-07-2025 Renal function panel Renal function panel Lab Routine 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, unspecified whether nursing home insulin use (CMS/HCC) Expected: 04/07/2024 (Approximate), Expires: 04/07/2025 [facility] Comment on above: Expected: 04/07/2024 (Approximate), Expi res: 04/07/2025 Start: 03-24-2024 End: 03-24-2024 Patient encounter procedure 03/24/2024 3:00 PM EST Office Visit [facility] [address] [place] [phone] Kelin Brittany, NP [address] [place] [place] [facility] Start: 03-17-2024 End: 03-17-2024 Patient encounter procedure 03/17/2024 9:20 AM EST [facility] [address] [place] [phone] Cleo Zambrano MD [address] [place] [address] [facility] Start: 03-16-2024 Adult BMI Screening Adult BMI Screening [facility] Start: 03-16-2024 Screening for malignant neoplasm of breast Mammogram [facility] Start: 03-11-2024 End: 03-11-2024 Patient encounter procedure 03/11/2024 10:00 AM EST Office Visit [facility] [place] [address] [place] [phone] Mendez Cardoso, DO [address] [place] [address] [facility] Start: 03-09-2024 Group A Streptococcus Culture Group A Streptococcus Culture [facility] Start: 02-19-2024 End: 02-19-2024 Patient encounter procedure 02/19/2024 2:00 PM EST Office Visit [facility] [place] [address] [place] [address] Mendez Cardoso, DO [address] [place] [address] [facility] Start: 02-16-2024 End: 02-16-2024 Patient encounter procedure 02/16/2024 3:40 PM EST Office Visit [facility] [address] [place] [address] Brittany Neville, ASSOCIATE CHEMIST [address] [place], [place] [facility] [address] Start: 02-09-2024 End: 02-09-2024 Patient encounter procedure 02/09/2024 11:15 AM EST Appointment [facility] Physical Therapy [address] [place], [place] [phone] Tamar Silveira, [place] dry needling [facility] Physical Therapy Comment on above: dry needling Start: 02-08-2024 End: 02-08-2024 Patient encounter procedure 02/08/2024 1:45 PM EST Appointment [facility] [address] [place] [phone] Ana Paula Ingram MD [address] [place] [address] [facility] Start: 01-30-2024 Adult BMI Screening Adult BMI Screening [facility] Start: 01-30-2024 Tobacco Screening Tobacco Screening [facility] Start: 01-26-2024 End: 01-26-2024 Patient encounter procedure 01/26/2024 8:00 AM EST Appointment [facility] Physical Therapy [address] [place] [address] Tamar Silveira, [place] dry needling [facility] Physical Therapy Comment on above: dry needling Start: 01-13-2024 End: 01-13-2024 Patient encounter procedure 01/13/2024 8:15 AM EST Office Visit [facility] UROLOGY Part of [address] [place] [phone] Georges Valencia, PA-C [address] [place] [address] [address] [place] [phone] incontinence [facility] UR[facility] Part of [facility] Comment on above: incontinence Start: 12-29-2023 End: 12-29-2023 Patient encounter procedure 12/29/2023 9:00 AM EDT Appointment [facility] Physical Therapy [address] [place], [place] [phone] Tamar Silveira, PT [place] [facility] Physical Therapy Comment on above: NEEDLING Start: 12-15-2023 End: 12-15-2023 Patient encounter procedure 12/15/2023 9:00 AM EDT Appointment [facility] Physical Therapy [address] [place], [place] [phone] Tamar Silveira, PT [place] [facility] Physical Therapy Comment on above: [place] Start: 12-01-2023 End: 12-01-2023 Patient encounter procedure 12/01/2023 9:45 AM EDT Appointment [facility] Physical Therapy [address] [place], [place] [phone] Tamar Silveira, PT [place] [facility] Physical Therapy Comment on above: [place] Start: 11-01-2023 Influenza vaccination [facility] Start: 10-08-2023 End: 10-08-2023 Patient encounter procedure 10/08/2023 9:00 AM EDT [facility] [address] [facility] [address] [place] [address] Dwayne Khoury MD [address], [facility] [address] [place] [address] [facility] Start: 10-01-2023 Influenza vaccination Flu vaccine (#1) [facility] Start: 2023 End: 2023 Patient encounter procedure 2023 2:00 PM EDT Office Visit [facility] [address] [place] [phone] Gaurav Sellers, PA [address] [place] [address] [facility] Start: 09-01-2023 End: 09-01-2023 Patient encounter procedure 09/01/2023 10:30 AM EDT Appointment [facility] Physical Therapy [address] [place], [place] [phone] Osito Rowan [facility] Physical Therapy Start: 08-26-2023 End: 08-26-2023 Patient encounter procedure 08/26/2023 2:30 PM EDT Appointment [facility] Physical Therapy [address] [place] [phone] Kofi Villegas, PT [facility] Physical Therapy Start: 08-18-2023 End: 08-18-2023 Patient encounter procedure 08/18/2023 9:45 AM EDT Appointment [facility] Physical Therapy [address] [place] [address] Osito Rowan [facility] Physical Therapy Start: 08-11-2023 End: 08-11-2023 Patient encounter procedure 08/11/2023 1:15 PM EDT Appointment [facility] Physical Therapy [address] [place] [phone] Jan Olmstead, PT DRY [place] [facility] Physical Therapy Comment on above: DRY [place] Start: 08-04-2023 End: 08-04-2023 Patient encounter procedure 08/04/2023 4:15 PM EDT Appointment [facility] Physical Therapy [address] [place] [address] Osito Rowan [facility] Physical Therapy Start: 06-03-2023 End: 06-03-2023 Patient encounter procedure 06/03/2023 3:30 PM EDT Appointment [facility] Physical Therapy [address] [place] [address] Osito Rowan [facility] Physical Therapy Start: 06-02-2023 End: 06-02-2023 Patient encounter procedure [facility] Physical Therapy Comment on above: DRY [place]- dont move coordinates with son's appt Start: 05-23-2023 Hepatitis B vaccine (3 of 3 - Hep B Twinrix 3-dose series) Hepatitis B vaccine (3 of 3 - Hep B Twinrix 3-dose series) [facility] Start: 05-20-2023 End: 05-20-2023 Patient encounter procedure 05/20/2023 3:15 PM EDT Appointment [facility] Physical Therapy [address] [place], [place] [phone] Rojas Altamirano PTA [facility] Physical Therapy Start: 05-19-2023 End: 05-19-2023 Patient encounter procedure 05/19/2023 12:45 PM EDT Appointment [facility] Physical Therapy [address] [place], [place] [phone] Rebecca Skinner, PT DRY NEEDLING- dont move coordinates with son's apptDRY [place]LING [facility] Physical Therapy Comment on above: DRY [place]- dont move coordinates with son's apptDRY [place] Start: 05-05-2023 End: 05-05-2023 Patient encounter procedure [facility] Physical Therapy Comment on above: DRY [place] DRY [place]LING- dont m ove coordinates with son's appt Start: 05-03-2023 Urine screening for protein Urine Microalbumin [facility] Start: 04-28-2023 End: 04-28-2023 Patient encounter procedure 04/28/2023 10:45 AM EST Office Visit [facility] [address] [place] [phone] Gaurav Sellers, PA [address] [place], [place] [phone] [facility] Start: 04-21-2023 End: 04-21-2023 Patient encounter procedure [facility] Physical Therapy Comment on above: DRY [place] DRY NEEDLING- dont m ove coordinates with son's appt Start: 04-07-2023 End: 04-07-2023 Patient encounter procedure 04/07/2023 2:15 PM EST Appointment [facility] Physical Therapy [address] [place] [phone] Rebecca Skinner, PT DRY [place] [facility] Physical Therapy Comment on above: DRY [place] Start: 03-27-2023 End: 03-27-2023 Admission to same day surgery center 03/27/2023 1:27 PM EST - 03/27/2023 1:33 PM EST Surgery [facility] [address] [place] [address] Pete Silver MD [address] [place] [address] INJECTION BLOCK SACROILIAC JOINT [60127 (CPT )] [facility] Comment on above: INJECTION BLOCK SACROILIAC JOINT [29024 (CPT )] Start: 03-27-2023 End: 03-27-2023 Inject si joint arthrgrphy&/anes/steroid w/monika INJECTION BLOCK SACROILIAC JOINT Disorder of sacrum 03/27/2023 1:27 PM EST [facility] Start: 03-27-2023 Subsequent hospital visit by physician 03/27/2023 1:27 PM EST Hospital Encounter [facility] [address] [place] [phone] Pete Silver MD [address] [place] [phone] [facility] Start: 03-24-2023 End: 03-24-2023 Patient encounter procedure 03/24/2023 2:15 PM EST Appointment [facility] Physical Therapy [address] [place] [phone] Rebecca Skinner, PT DRY [place] [facility] Physical Therapy Comment on above: DRY [place] Start: 03-19-2023 [facility] Start: 03-16-2023 End: 03-16-2023 Patient encounter procedure 03/16/2023 11:45 AM EST Appointment [facility] [address] [place] [phone] [facility] Start: 03-10-2023 End: 03-10-2023 Patient encounter procedure 03/10/2023 2:30 PM EST Appointment [facility] Physical Therapy [address] [place] [address] Rebecca Skinner PT [facility] Start: 09-30-2022 Influenza vaccination Flu [facility] Start: 10-31-2021 Influenza vaccination Flu vaccine (#1) [facility] Start: 09-03-2021 DTaP,Tdap and Td Vaccines (1 - Tdap) DTaP,Tdap and Td Vaccines (1 - Tdap) [facility] Start: 09-03-2021 DTaP/Tdap/Td vaccine (1 - Tdap) DTaP/Tdap/Td vaccine (1 - Tdap) [facility] Start: 05-02-2021 Depression Screening Depression Screening [facility] Start: 2020 Lipid panel Lipids [facility] Start: 01-04-2020 Diabetic foot examination Diabetic Foot Exam [facility] Start: 09-25-2015 Diabetes screen Diabetes screen [facility] Start: 2010 Screening for malignant neoplasm [...] 1998 Hepatitis C screening Hepatitis C screen [facility] Start: 09-25-1995 HIV screening HIV screen [facility] Start: 1993 Varicella vaccine (1 of 2 - 13+ 2-dose series) Varicella vaccine (1 of 2 - 13+ 2-dose series) [facility] Start: 1992 Depression Screen Depression Screen [facility] Start: 1992 Depression Screening Depression Screening [facility] Start: 1990 Lipid panel Lipids [facility] Start: 1981 Varicella vaccine (1 of 2 - 2-dose childhood series) Varicella vaccine (1 of 2 - 2-dose childhood series) [facility] Start: 03-27-1981 COVID-19 Vaccine (#1) COVID-19 Vaccine (#1) [facility] Start: 1980 Glaucoma screening Diabetic Ophthalmology Exam [facility] Start: 1980 Hepatitis B vaccine (1 of 3 - 3-dose series) Hepatitis B vaccine (1 of 3 - 3-dose series) [facility] DHEA-sulfate DHEA-sulfate Lab Routine Hormone imbalance Hormone disorder Ordered: 04/18/2024 [facility] Comment on above: Ordered: 04/18/2024 EKG 12 Lead EKG 12 Lead ECG Routine 01/13/2024 2:59 PM EST [facility] Estradiol Estradiol Lab Ro utine Hormone imbalance Hormone disorder Ordered: 04/18/2024 [facility] Work Phone: Comment on above: Ordered: 04/18/2024 Estrone Estrone Lab Rout ine Hormone imbalance Hormone disorder Ordered: 04/18/2024 [facility] Comment on above: Ordered: 04/18/2024 Ferritin [Mass/volum e] in Serum or Plasma Ferritin Lab Routine Hormone imbalance Hormone disorder Ordered: 04/18/2024 [facility] Comment on above: Ordered: 04/18/2024 Hemoglobin A1c/Hemoglobin.total in Blood Hemoglobin A1c Lab Routine Hormone imbalance Hormone disorder Ordered: 04/18/2024 [facility] Comment on above: Ordered: 04/18/2024 Inject si joint arthrgrphy&/anes/steroid w/monika INJECTION BLOCK SACROILIAC JOINT Disorder of sacrum [facility] Njx dx/ther agt pvrt facet jt lmbr/sac 1 level INJECTION BLOCK NERVE MEDIAL BRANCH Lumbosacral spondylosis without myelopathy [facility] Patient Education Know your Meds [facility] Work Phone: Patient referral [facility] Work Phone: Progesterone Progesterone Lab Routine Hormone imbalance Hormone disorder Ordered: 04/18/2024 [facility] Comment on above: Ordered: 04/18/2024 Sex hormone binding globulin Sex hormone binding globulin Lab Routine Hormone imbalance Hormone disorder Ordered: 04/18/2024 [facility] Comment on above: Ordered: 04/18/2024 Streptococcus pyogen es [Presence] in Unspecified specimen by Organism specific culture [facility] T3, reverse T3, reverse Lab Routine Hormone imbalance Hormone disorder Ordered: 04/18/2024 [facility] Comment on above: Ordered: 04/18/2024 TESTOSTERONE, FREE TESTOSTERONE, FREE Lab Routine Hormone imbalance Hormone disorder Ordered: 04/18/2024 [facility] Comment on above: Ordered: 04/18/2024 Testosterone, free, total Testos terone, free, total Lab Routine Hormone imbalance Hormone disorder Ordered: 04/18/2024 [facility] Comment on above: Ordered: 04/18/2024 THIN PREP TIS PAP AN D HR HPV DNA THIN PREP TIS PAP AND HR HPV DNA Pathology and Cytology Routine Well woman exam with routine gynecological exam Ordered: 05/26/2024 [facility] Comment on above: Ordered: 05/26/2024 Thyroid peroxidase antibody Thyroid peroxidase antibody Lab Routine Hormone imbalance Hormone disorder Ordered: 04/18/2024 [facility] Comment on above: Ordered: 04/18/2024 Thyroxine (T4) free [Mass/volume] in Serum or Plasma T4, free Lab Routine Hormone imbalance Hormone disorder Ordered: 04/18/2024 [facility] Comment on above: Ordered: 04/18/2024 Triiodothyronine (T3 ) Free [Mass/volume] in Serum or Plasma T3, free Lab Routine Hormone imbalance Hormone disorder Ordered: 04/18/2024 [facility] Comment on above: Ordered: 04/18/2024 Vitamin D 1,25 dihydroxy Vitamin D 1,25 dihydroxy Lab Routine Hormone imbalance Hormone disorder Ordered: 04/18/2024 [facility] Comment on above: Ordered: 04/18/2024 Immunizations Immunization Date Immunization Notes Care Provider [facility] 12-07-2023 influenza, seasonal, injectable, preservative free Paula Sanderson MD Work Phone: [facility] 12-07-2023 influenza virus vaccine, unspecified formulation Mendez Cardoso DO Work Phone: [facility] 05-25-2023 hepatitis A and hepatitis B vaccine Paula Sanderson MD Work Phone: [facility] 12-22-2022 hepatitis A and hepatitis B vaccine Paula Sanderson MD Work Phone: [facility] 12-22-2022 Seasonal, quadrivalent, recombinant, injectable influenza vaccine, preservative free Paula Sanderson MD Work Phone: [facility] 12-22-2022 influenza virus vaccine, unspecified formulation Deepika Robledo MD Work Phone: [facility] 06-23-2022 hepatitis A and hepatitis B vaccine Paula Sanderson MD Work Phone: [facility] 02-07-2022 Pneumococcal Conjuga te PCV 20 Paula Sanderson MD Work Phone: [facility] 12-23-2021 influenza, injectabl e, quadrivalent, preservative free Paula Sanderson MD Work Phone: [facility] 09-02-2021 TD(adult) unspecifie d formulation Paula Sanderson MD Work Phone: [facility] 09-02-2021 tetanus toxoid, reduced diphtheria toxoid, and acellular pertussis vaccine, adsorbed Mendez Walker DO Work Phone: [facility] 12-24-2020 influenza, injectabl e, quadrivalent, preservative free Paula Sanderson MD Work Phone: [facility] 12-19-2019 influenza, injectabl e, quadrivalent, preservative free Paula Sanderson MD Work Phone: [facility] 12-19-2018 influenza, injectabl e, quadrivalent, preservative free [...] [facility] 10-10-2016 influenza, seasonal, injectable, preservative free Paula Sanderson MD Work Phone: [facility] 12-19-2013 influenza virus vaccine, live, attenuated, for intranasal use Argenis Storm RN [facility] 12-03-2012 influenza virus vaccine, whole virus Argenis Storm RN [facility] 12-29-2011 influenza virus vaccine, whole virus Argenis Storm RN [facility] 12-23-2010 influenza virus vaccine, whole virus Argenis Storm RN [facility] 12-18-2008 influenza virus vaccine, whole virus Argenis Storm RN [facility] Payers Date Payer Category Payer Self-pay [id number] 2022 Unknown 2013 Medicaid (Managed Care) [employer] [id number] 2002 Medicaid [id number] 2002 Medicaid HMO [employer] [id number] 1980 Unknown [id number] 2.16.840.1.249032.3.579.2. 59 1980 Unknown [id number] 2.16840.1.957807.3.579.2. 59 1980 Unknown [id number] 2.16840.1.679531.3.579.2. 59 1980 Unknown [id number] 2.16840.1.013839.3.579.2. 59 1980 Unknown [id number] 2.840.1.608758.3.579.2. 727 1980 Unknown [id number] 2.840.1.037589.3.579.2. 1285 1980 Unknown [id number] 2.840.1.486827.3.579.2. 1285 1980 Unknown [id number] 2.0.1.509083.3.579.2. 1285 1980 Unknown [id number] 2.0.1.253812.3.579.2. 1285 1980 Unknown [id number] 2.840.1.653284.3.579.2. 1285 1980 Unknown [id number] 2.840.1.865752.3.579.2. 1285 1980 Unknown [id number] 2.840.1.139366.3.579.2. 1285 1980 Unknown [id number] 20.1.009344.3.579.2. 1285 1980 Unknown [id number] .840.1.612685.3.579.2. 1285 1980 Unknown [id number] 2.840.1.794469.3.579.2. 1285 1980 Unknown [id number] 2.840.1.049051.3.579.2. 1285 1980 Unknown [id number] 2840.1.540717.3.579.2. 196 1980 Unknown [id number] 2.16.840.1.484829.3.579.2. 196 1980 Unknown [id number] 2.16.840.1.038990.3.579.2. 1980 Unknown [id number] 2.16.840.1.670063.3.579.2. 1980 Unknown [id number] 2.16840.1.881515.3.579.2. 1980 Unknown [id number] 2.16840.1.067944.3.579.2. 1980 Unknown [id number] 2.16840.1.354672.3.579.2. 1980 Unknown [id number] 2.840.1.096825.3.579.2. 1980 Unknown [id number] 2.840.1.681332.3.579.2. 1980 Unknown [id number] 2.840.1.574920.3.579.2. 1980 Unknown [id number] 2.840.1.100324.3.579.2. 1980 Unknown [id number] 2.840.1.221621.3.579.2. 1980 Unknown [id number] 2.840.1.030752.3.579.2. 1980 Unknown [id number] 2.16840.1.024119.3.579.2. 1980 Unknown [id number] 2.16840.1.053365.3.579.2. 1980 Unknown [id number] 2.16840.1.189700.3.579.2. 1980 Unknown [id number] 2.16840.1.559908.3.579.2. 1980 Unknown [id number] 2.16.840.1.219225.3.579.2. 1980 Unknown [id number] 2.16.840.1.796353.3.579.2. 1980 Unknown [id number] 2.16.840.1.772630.3.579.2. 1980 Unknown [id number] 2.16.840.1.017071.3.579.2. 1980 Unknown [id number] 2.16840.1.108798.3.579.2. 1980 Unknown [id number] 2.16840.1.619088.3.579.2. 1980 Unknown [id number] 2.16840.1.746090.3.579.2. 1285 1980 Unknown [id number] 2.840.1.371874.3.579.2. 1258 1980 Unknown [id number] 2.840.1.084392.3.579.2. 1258 1980 Unknown [id number] 2.840.1.945506.3.579.2. 1258 1980 Unknown [id number] 2.840.1.993006.3.579.2. 1258 1980 Unknown [id number] 2.840.1.921039.3.579.2. 1258 1980 Unknown [id number] 2.840.1.052059.3.579.2. 1258 1980 Unknown [id number] 2.840.1.350956.3.579.2. 1258 1980 Unknown [id number] 2.840.1.700353.3.579.2. 1258 1980 Unknown [id number] 2.16840.1.139237.3.579.2. 1258 1980 Unknown [id number] 2.16.840.1.900772.3.579.2. 1259 1980 Unknown [id number] 2.16.840.1.724558.3.579.2. 1259 1980 Unknown [id number] 2.16.840.1.983961.3.579.2. 1259 1980 Unknown [id number] 2.16.840.1.095124.3.579.2. 1259 1959 Medicaid [id number] Unknown [id number] 2.16.840.1.428362.3.579.2. 531 Unknown [id number] 2.16.840.1.571903.3.579.2. 531 Unknown [id number] 2.16.840.1.416380.3.579.2. 531 Unknown [id number] 2.16.840.1.188609.3.579.2. 531 Social History Date Type Detail Facility Start: 09-02-2017 End: 09-21-2024 Tobacco smoking status NJIS Never smoked tobacco [employer] Start: 09-02-2017 End: 03-10-2023 Tobacco use and exposure Smokeless tobacco non-user [employer] Phone: Start: 10-11-2021 End: 08-19-2024 Alcohol intake Current non-drinker of alcohol (finding) [employer] Phone: Start: 1980 Sex Assigned At Not on file B [facility] [employer] Phone: Start: 10-01-2021 End: 10-22-2021 Exposure to SARS-CoV-2 (event) Not sure [employer] Phone: Start: 10-11-2021 End: 09-20-2024 Sex Assigned At [facility] Tobacco smoking status Never [facility] Start: 10-11-2021 End: 09-20-2024 History of Social function [employer] Start: 1980 Sex Assigned At Female F [facility] How often to you hav e a drink containing alcohol? Never [employer] Start: 02-11-2024 End: 09-20-2024 Alcoholic beverage intake Lifetime non-drinker (finding) [facility] Start: 03-11-2024 Sex Patient sex un known (finding) [facility] Start: 10-05-2014 End: 08-10-2024 Sex Female (finding) [facility] Medical Equipment Procedure Code Equipment Code Equipment Origin al Text Equipment Identifier Dates Implantation of hypoglossal nerve stimulator ()[id number] FDA Start: 08-10-2024 Implantation of hypoglossal nerve stimulator Implantable sleep apnoea treatment system, respiration-sensing ()[id number] FDA Start: 08-10-2024 Implantation of hypoglossal nerve stimulator ()[id number] FDA Start: 08-10-2024 Greene Sut 5.5mm 2 Ft Crkscr Fbrwr Shldr 3 Pk 14.7mm Strl Ea=Bill-Only Rpl [id number] Start: 05-15-2022 Use to test BLOO D SUGAR TWICE DAILY [id number] Start: 05-28-2020 Use to test BLOO D SUGAR TWICE DAILY, Diagnosis: E11.9 [id number] Start: 03-08-2020 Arthreximplant System, Hand/Wrist Internal Brace Ligament Augmentation Repair ()[id number] FDA Start: 08-18-2024 Arthrex Dx Swive lock Sl, With Forked Eyelet, 3.5 X 8.5mm ()[id number], [id number] FDA Start: 08-18-2024 Arthrex Dx Swive lock Sl, With Forked Eyelet, 3.5 X 8.5mm ()[id number], [id number] [facility] Start: 08-18-2024 0.062 harini Ashley [id number] Start: 08-18-2024 Goals Date Patient Goal Desired Activity /State Clinical Notes 10-22-2021 to 09-20-2024 Mendez Cardoso, DO - 09/20/2024 1:00 PM EDTTelephone Encounter - Rebecca Rees - 09/06/2024 8:32 AM EDTTelephone Encounter - Rebecca Rees - 09/06/2024 8:32 AM EDT Note Date & Type Note Facility 09-20-2024 History of Presen t illness Narrative Subjective Patient ID: Karma Banegas is a 43 y.o. female who presents for Post-op (Still having trouble with Inspire) HPI This patient presents for recheck. [...] to 36.9 Cholecystitis 2016 Acute/chronic Chronic rhinitis Circadian rhythm sleep disorder, [...] mouth in the morning. Take with meals., Disp: , Rfl: fexofenadine (Ros) 180 MG [...] MG SUBCUTANEOUSLY (UNDER THE SKIN) EVERY 7 DAYS, Disp: 2 mL, Rfl: 3 Multiple Vitamin [...] Insecurity: No Food Insecurity (10/05/2023) Received from [facility] Hunger Screening Within the past [...] Not At Risk (06/20/2024) Re[facility] from [facility] Humiliation, Afraid, Rape, and Kick [...] to 44.9 in adult, unspecified obesity type (CMS-HCC) Breakdown (mechanical) of implanted electronic neurostimulator, generator, sequela Comments: recommend revision of her implant to minimize any further discomfort and mobility of the implant. Recommend open revision of her implant to suture it back down to the level of the pectoralis muscle to prevent mobility. documented in this encounter [facility] 09-06-2024 Miscellaneous Notes Formattin g of this note might be different from the original. SPOKE WITH PT Pt had left voicemail [...] PT was understanding. documented in this encounter [facility] 09-06-2024 Telephone encount er Note SPOKE WITH PT Pt had left [...] scheduled for their surgery. PT was understanding. [facility] 09-01-2024 History of Presen t illness Narrative [...] in 1 year documented in this encounter [facility] 08-19-2024 History of Presen t illness Narrative [...] in 1 year documented in this encounter [facility] 08-08-2024 Evaluation note Diagnosis Onset Date Resolution GERD (gastroesophageal reflux disease) acute August 08, 2024 1 :22pm Irritable bowel syndrome with constipation acute August 08, 2024 1 :22pm [facility] Work Phone: 1(176) 611-191306-05-2025 History of Present illness Narrative* Cleo Zambrano MD - 08/04/2024 10:30 AM EDT Images from the original note [...] yet. HPI: 06/2020 New patient sent from [facility] for uncontrolled diabetes. A1c of 9.3 [...] Diagnosis Date Anemia Attention deficit hyperactivity disorder ([facility]) 04/27/2024 Bipolar disorder Body mass index (BMI) of 36.0 to 36.9 Cholecystitis 2017 Acute/chronic Chronic rhinitis Circadian rhythm sleep disorder, shift work type 04/27/2024 Controlled type 2 diabetes mellitus without complication, without long-term current use of insulin Disorder of sacrum 01/29/2023 Gastritis 2017 GERD (gastroesophageal reflux disease) Hyperlipemia ([facility]) Impulse control disorder ([facility]) 04/27/2024 Insertion of Nexplanon Iron deficiency anemia Kidney stones Macromastia 10/08/2023 Mass of upper outer quadrant of right breast 06/02/2023 Mixed bipolar affective disorder, moderate ([facility]) 04/27/2024 OCD (obsessive compulsive disorder) ([facility]) Open wound of toe without complication 03/10/2023 PTSD (post-traumatic stress disorder) ([facility]) Recurrent epistaxis Seasonal allergies Symptomatic mammary hypertrophy 06/02/2023 Type 2 diabetes mellitus with hyperglycemia ([facility]) Umbilical hernia 2017 Vitamin D deficiency [...] mellitus without complication, unspecified whether long chain beamer insulin use - POCT glycosylated hemoglobin (Hb [...] other medications will remain the same. A prescriptionfor Mounjaro will be sent to her pharmacy, which is on a medication synchronization program to ensure she receives all her medications at the same time. Follow up in about 4 months (around 12/04/2024). documented in this encounterPhelps [id number] History of Present illness Narrative* Sonal Ball LPN - 08/02/2024 8:30 AM EDT Reason for Appointment: Patient ID: [...] and foot 03/10/2023 PTSD (post-traumatic stress disorder) ([facility]) 06/16/2018 Recurrent epistaxis 03/10/2023 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 11/10/2017 Well woman exam with routine gynecological exam 05/25/2023 Type 2 diabetes mellitus with hyperglycemia ([facility]) 02/11/2024 Vitamin D deficiency, unspecified 02/11/2024 Hyperlipidemia, unspecified ([facility]) 02/11/2024 Resolved Ambulatory Problems Diagnosis Date Noted Hot flashes 03/10/2023 Postoperative abscess 09/28/2016 Open wound of toe without complication 03/10/2023 Disorder of sacrum 01/29/2023 Macromastia 10/08/2023 Mass of upper outer quadrant of right breast 06/02/2023 Symptomatic mammary hypertrophy 06/02/2023 Attention deficit hyperactivity disorder ([facility]) 04/27/2024 Circadian rhythm sleep disorder, shift work type 04/27/2024 Impulse control disorder ([facility]) 04/27/2024 Mixed bipolar affective disorder, moderate ([facility]) 04/27/2024 Past Medical History: Diagnosis Date Bipolar disorder Body mass index (BMI) of 36.0 to 36.9 Cholecystitis 2016 Controlled type 2 diabetes mellitus without complication, without long-term current use of insulin Gastritis 2017 GERD (gastroesophageal reflux disease) Hyperlipemia ([facility]) Insertion of Nexplanon Iron deficiency anemia Kidney stones OCD (obsessive compulsive disorder) ([facility]) Seasonal allergies Umbilical hernia 2017 Vitamin D deficiency HISTORY PAST MEDICAL HISTORY SOCIAL HISTORY Past Medical History: Diagnosis Date Anemia Attention deficit hyperactivity disorder ([facility]) 04/27/2024 Bipolar disorder Body mass index (BMI) of 36.0 to 36.9 Cholecystitis 2017 Acute/chronic Chronic rhinitis Circadian rhythm sleep disorder, shift work type 04/27/2024 Controlled type 2 diabetes mellitus without complication, without long-term current use of insulin Disorder of sacrum 01/29/2023 Gastritis 2017 GERD (gastroesophageal reflux disease) Hyperlipemia (CMS/[facility]) Impulse control disorder ([facility]) 04/27/2024 Insertion of Nexplanon Iron deficiency anemia Kidney stones Macromastia 10/08/2023 Mass of upper outer quadrant of right breast 06/02/2023 Mixed bipolar affective disorder, moderate (CMS/[facility]) 04/27/2024 OCD (obsessive compulsive disorder) ([facility]) Open wound of toe without complication 03/10/2023 PTSD (post-traumatic stress disorder) ([facility]) Recurrent epistaxis Seasonal allergies Symptomatic mammary hypertrophy 06/02/2023 Type 2 diabetes mellitus with hyperglycemia ([facility]) Umbilical hernia 2017 Vitamin D deficiency [...] nursing note reviewed. Exam conducted with a dye expert present. Vitals: Estimated body mass index is [...] removed a small piece of sac. After palpatingleft arm, feels as if its capsule of scar tissue or another Nexplanon that was inserted previously by another physician. Lidocaine injected small incision with scalpel made, scar tissue noted. Pt given Xray to have obtained to view if remnants of nexplanon. Rx for cleocin faxed to pharmacy. Documented by Sonal Ball LPN on behalf of: Roel Garber DO documented in this encounterPhelps [id number] Telephone encounter Note* Telephone Encounter - Austin Perkins - 07/20/2024 11:58 AM EDT Received request for surgery clearance based on last visit for wrist/hand surgery. Please advise. [facility] [id number] Miscellaneous Notes* Telephone Encounter - Austin Perkins - 07/20/2024 11:58 AM EDT Received request for surgery clearance based on last visit for wrist/hand surgery. Please advise. documented in this [facility]05-17-2025 Hospital Discharge instructions* Discharge Instructions* Prieto Daniel PA-C - 07/16/2024 1:36 PM EDT May use ice and elevation for the ankle continue your ibuprofen and use of your Flexeril at home for muscle relaxant for your lower back would apply cold pack to the lower back for 20 minutes severaltimes a day as well. Follow-up with your primary care and or math specialist for these concerns. * Attachments The following attachments cannot be sent through Care Everywhere. * Back Pain (Niuean) * Arthritis (Niuean) [facility] History of Present illness Narrative* Bela Ribeiro LPN - 06/30/2024 9:40 AM EDTAssociated Order(s): Insertion/Removal of Contraceptive Capsule Post-Procedure Diagnose(s): Nexplanon removal Reason for Appointment: Patient ID: Karma Bnaegas is a 43 y.o. female who presents [...] nursing note reviewed. Exam conducted with a dye expert present. Vitals: Estimated body mass index is [...] on side exam table due to patient currentlybeing in a wheelchair. Skin was cleansed with [...] was advised to call office with any questionsor concerns. Patient desire note informing that she is under provider care for management of hormones and was referred to specialist for personalized medication therapy for symptoms. Follow Up: Patient is to return to the office as needed for any routine appointments. Documented by Bela Ribeiro LPN on behalf of: Roel Garber DO documented in this encounterPhelps [id number] NoteUTP CARDIOLOGY PROGRESS NOTE [facility] HPI: Karma Whitehead is a 43 y.o. [...] Outpatient Medications: Current Outpatient Medications Medication Instructions Align, B.infantis, 4 mg capsule 1 capsule, oral, [...] echocardiogram to assess c (more content not included)...[facility]04-14-2025 History of Present illness Narrative* Mendez Cardoso, DO - 06/13/2024 9:45 AM EDT Subjective Patient ID: Karma Banegas [...] 40.0 to 44.9 in adult,unspecified obesity type Comments: Patient will continue efforts to reduce her body mass index with weight loss as well as upcoming surgery documented in this encounterPhelps [id number] Evaluation note* Diagnosis Onset Date Resolution Status Admit Date Constipation acute June 02, 025 9:26am Fatty liver acute June 02 9:26am GERD (gastroesophageal reflu x disease) acute June 02, 2024 9:26am IBS (irritable bowel syndrome) acute June 02, 2024 9:26am [facility] Work Phone: 1(856) 263-926504-03-2025 Evaluation note* Diagnosis Onset Date Resolution Status Admit Date Constipation acute June 02, 025 9:26am Fatty liver acute June 02 9:26am GERD (gastroesophageal reflu x disease) acute June 02, 2024 9:26am IBS (irritable bowel syndrome) acute June 02, 2024 9:26am GERD (gastroesophageal reflu x disease) acute August 08, 2024 1 :22pm Irritable bowel syndrome wit h constipation acute August 08, 2024 1 :22pm [facility] Work Phone: 1(783) 857-297103-27-2025 History of Present illness Narrative* Becky Silvestre [...] Noted Acute cholecystitis 09/15/2016 Anemia 03/10/2023 Asthma ([facility]) 03/10/2023 Axillary lymphadenopathy 05/10/2020 Bilateral foot pain 03/10/2023 Cervical disc displacement 09/21/2017 Chronic rhinitis 03/10/2023 Disc displacement, lumbar 10/11/2018 Diverticulitis 03/10/2023 Intervertebral disc 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 12/02/2022 Lumbosacral spondylosis without myelopathy 07/22/2018 Obesity 03/10/2023 Primary osteoarthritis, left ankle and foot 03/10/2023 PTSD (post-traumatic stress disorder) ([facility]) 06/16/2018 Recurrent epistaxis 03/10/2023 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 ([facility]) 11/10/2017 Well woman exam with routine gynecological exam 05/25/2023 Type 2 diabetes mellitus with hyperglycemia (CMS/HCC) 02/11/2024 Vitamin D deficiency, unspecified 02/11/2024 Hyperlipidemia, unspecified (CMS/[facility]) 02/11/2024 Resolved Ambulatory Problems Diagnosis Date Noted Hot flashes 03/10/2023 Postoperative abscess 09/28/2016 Open wound of toe without complication 03/10/2023 Disorder of sacrum 01/29/2023 Macromastia 10/08/2023 Mass of upper outer quadrant of right breast 06/02/2023 Symptomatic mammary hypertrophy 06/02/2023 Attention deficit hyperactivity disorder ([facility]) 04/27/2024 Circadian rhythm sleep disorder, shift work type 04/27/2024 Impulse control disorder ([facility]) 04/27/2024 Mixed bipolar affective disorder, moderate ([facility]) 04/27/2024 Past Medical History: Diagnosis Date Bipolar disorder ([facility]) Body mass index (BMI) of 36.0 to 36.9 Cholecystitis 2017 Controlled type 2 diabetes mellitus without complication, without long-term current use of insulin (CMS/[facility]) Gastritis 2017 GERD (gastroesophageal reflux disease) Hyperlipemia ([facility]) Insertion of Nexplanon Iron deficiency anemia Kidney stones OCD (obsessive compulsive disorder) (CMS/[facility]) Seasonal allergies Umbilical hernia 2017 Vitamin D deficiency HISTORY PAST MEDICAL HISTORY SOCIAL HISTORY Past Medical History: Diagnosis Date Anemia Attention deficit hyperactivity disorder ([facility]) 04/27/2024 Bipolar disorder ([facility]) Body mass index (BMI) of 36.0 to 36.9 Cholecystitis 2017 Acute/chronic Chronic rhinitis Circadian rhythm sleep disorder, shift work type 04/27/2024 Controlled type 2 diabetes mellitus without complication, without long-term current use of insulin (CMS/[facility]) Disorder of sacrum 01/29/2023 Gastritis 2017 GERD (gastroesophageal reflux disease) Hyperlipemia (CMS/HCC) Impulse control disorder ([facility]) 04/27/2024 Insertion of Nexplanon Iron deficiency anemia Kidney stones Macromastia 10/08/2023 Mass of upper outer quadrant of right breast 06/02/2023 Mixed bipolar affective disorder, moderate (CMS/HCC) 04/27/2024 OCD (obsessive compulsive disorder) (CMS/[facility]) Open wound of toe without complication 03/10/2023 PTSD (post-traumatic stress disorder) ([facility]) Recurrent epistaxis Seasonal allergies Symptomatic mammary hypertrophy 06/02/2023 Type 2 diabetes mellitus with hyperglycemia ([facility]) Umbilical hernia 2017 Vitamin D deficiency [...] nursing note reviewed. Exam conducted with a dye expert present. Vitals: Estimated body mass index is [...] of: Roel Garber DO documented in this encounterPhelps [id number] History of Present illness Narrative* Mendez Cardoso [...] deficit hyperactivity disorder (CMS/HCC) 04/27/2024 Bipolar disorder ([facility]) Body mass index (BMI) of 36.0 to 36.9 Cholecystitis 2017 Acute/chronic Chronic rhinitis Circadian rhythm sleep disorder, shift work type 04/27/2024 Controlled type 2 diabetes mellitus without complication, without long-term current use of insulin (CMS/[facility]) Disorder of sacrum 01/29/2023 Gastritis 2017 GERD (gastroesophageal reflux disease) Hyperlipemia (CMS/[facility]) Impulse control disorder (CMS/HCC) 04/27/2024 Insertion of Nexplanon Iron deficiency anemia Kidney stones Macromastia 10/08/2023 Mass of upper outer quadrant of right breast 06/02/2023 Mixed bipolar affective disorder, moderate ([facility]) 04/27/2024 OCD (obsessive compulsive disorder) ([facility]) Open wound of toe without complication 03/10/2023 PTSD (post-traumatic stress disorder) ([facility]) Recurrent epistaxis Seasonal allergies Symptomatic mammary hypertrophy 06/02/2023 Type 2 diabetes mellitus with hyperglycemia ([facility]) Umbilical hernia 2016 Vitamin D deficiency Current [...] Insecurity: No Food Insecurity (10/05/2023) Received from [facility] Hunger Screening Within the past [...] Patient encouraged to follow up with her crop specialist regarding the significant evidence of laryngopharyngeal reflux noted on endoscopy documented in this encounterPhelps [id number] History of Present illness Narrative* Bela Ribeiro, [...] Noted Acute cholecystitis 09/15/2016 Anemia 03/10/2023 Asthma ([facility]) 03/10/2023 Axillary lymphadenopathy 05/10/2020 Bilateral foot pain 03/10/2023 Cervical disc displacement 09/21/2017 Chronic rhinitis 03/10/2023 Disc displacement, lumbar 10/11/2018 Diverticulitis 03/10/2023 Intervertebral disc 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 12/02/2022 Lumbosacral spondylosis without myelopathy 07/22/2018 Obesity 03/10/2023 Primary osteoarthritis, left ankle and foot 03/10/2023 PTSD (post-traumatic stress disorder) ([facility]) 06/16/2018 Recurrent epistaxis 03/10/2023 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 ([facility]) 11/10/2017 Well woman exam with routine gynecological exam 05/25/2023 Type 2 diabetes mellitus with hyperglycemia ([facility]) 02/11/2024 Vitamin D deficiency, unspecified 02/11/2024 Hyperlipidemia, unspecified ([facility]) 02/11/2024 Resolved Ambulatory Problems Diagnosis Date Noted Hot flashes 03/10/2023 Postoperative abscess 09/28/2016 Open wound of toe without complication 03/10/2023 Disorder of sacrum 01/29/2023 Macromastia 10/08/2023 Mass of upper outer quadrant of right breast 06/02/2023 Symptomatic mammary hypertrophy 06/02/2023 Past Medical History: Diagnosis Date Bipolar disorder ([facility]) Body mass index (BMI) of 36.0 to 36.9 Cholecystitis 2017 Controlled type 2 diabetes mellitus without complication, without long-term current use of insulin ([facility]) Gastritis 2017 GERD (gastroesophageal reflux disease) Hyperlipemia ([facility]) Insertion of Nexplanon Iron deficiency anemia Kidney stones OCD (obsessive compulsive disorder) ([facility]) Seasonal allergies Umbilical hernia 2017 Vitamin D deficiency HISTORY PAST MEDICAL HISTORY SOCIAL HISTORY Past Medical History: Diagnosis Date Anemia Bipolar disorder ([facility]) Body mass index (BMI) of 36.0 to 36.9 Cholecystitis 2017 Acute/chronic Chronic rhinitis Controlled type 2 diabetes mellitus without complication, without long-term current use of insulin ([facility]) Disorder of sacrum 01/29/2023 Gastritis 2017 GERD (gastroesophageal reflux disease) Hyperlipemia ([facility]) Insertion of Nexplanon Iron deficiency anemia Kidney stones Macromastia 10/08/2023 Mass of upper outer quadrant of right breast 06/02/2023 OCD (obsessive compulsive disorder) ([facility]) Open wound of toe without complication 03/10/2023 PTSD (post-traumatic stress disorder) ([facility]) Recurrent epistaxis Seasonal allergies Symptomatic mammary hypertrophy 06/02/2023 Type 2 diabetes mellitus with hyperglycemia ([facility]) Umbilical hernia 2017 Vitamin D deficiency [...] calculated from the following: Height as of 25: 5' 3 . Weight as of this [...] of: Roel Garber DO documented in this encounterNONorthwest Medical [id number] Telephone encounter Note* Telephone Encounter - Austin Perkins - 04/13/2024 1:29 PM EST UMESH needed for shanda. Thank you! [facility] [id number] Miscellaneous Notes* Telephone Encounter - Austin Perkins - 04/13/2024 1:29 PM EST UMESH needed for shanda. Thank you! documented in this encounterPhelps [id number] History of Present illness Narrative* Cleo Zambrano [...] yet. HPI: 06/2020 New patient sent from [facility] for uncontrolled diabetes. A1c of 9.3 [...] Medical History: Diagnosis Date Anemia Bipolar disorder ([facility]) Body mass index (BMI) of 36.0 to 36.9 Cholecystitis 2017 Acute/chronic Chronic rhinitis Controlled type 2 diabetes mellitus without complication, without long-term current use of insulin ([facility]) Disorder of sacrum 01/29/2023 Gastritis 2017 GERD (gastroesophageal reflux disease) Hyperlipemia ([facility]) Insertion of Nexplanon Iron deficiency anemia Kidney stones Macromastia 10/08/2023 Mass of upper outer quadrant of right breast 06/02/2023 OCD (obsessive compulsive disorder) ([facility]) Open wound of toe without complication 03/10/2023 PTSD (post-traumatic stress disorder) ([facility]) Recurrent epistaxis Seasonal allergies Symptomatic mammary hypertrophy 06/02/2023 Type 2 diabetes mellitus with hyperglycemia ([facility]) Umbilical hernia 2016 Vitamin D deficiency [...] 2 diabetes mellitus without complication, unspecified whether nursing home insulin use ([facility]) - POCT glycosylated hemoglobin (Hb A1C) [...] exercise reviewed with the patient Hyperlipemia, mixed ([facility]) Class 2 severe obesity due to excess calories with serious comorbidity and body mass index (BMI) of39.0 to 39.9 in adult ([facility]) Follow up in about 4 months (around 08/05/2024). documented in this encounterPhelps [id number] Telephone encounter Note* Telephone Encounter - Austin Perkins - 02/16/2024 10:05 AM EST Pt would like ot know if you can try to get the ozempic approved again. She's gained 20lbs on trulicity. [facility] [id number] Miscellaneous Notes* Telephone Encounter - Austin Perkins - 02/16/2024 10:05 AM EST Pt would like ot know if you can try to get the ozempic approved again. She's gained 20lbs on trulicity. documented in this encounterPhelps [id number] History of Present illness Narrative* Jan Olmstead, PT - 02/09/2024 11:15 AM EST [facility]Observ[facility] Date: 02/09/2024 Patient Name: Karma [...] Cert. DN Date: 02/09/2024 documented in this encounterHen[facility] Discharge instructions* Discharge Instructions* Lisette Junior DO - 01/13/2024 5:40 PM EST Increase your fluid intake. Follow-up with your doctor to discuss your medications especially the gabapentin and cyclobenzaprine which can certainly make you feel tired and groggy all the time. * Attachments The following attachments cannot be sent through Care Everywhere. * Dizziness (Niuean) [facility] Telephone encounter Note* Telephone Encounter - [...] believes that the device is MRI compatible. Phelps [id number] Miscellaneous Notes* Telephone Encounter - Filomena Evans [...] Inspire device. Her BMI is 35.96, will [place] allow this BMI Her HST is from 04/2022, does need this updated Will she be able to have MRIs If all of this is ok we will send for Inspire consult We will need to call her with an update documented in this encounterPhelps [id number] Telephone encounter Note* Telephone Encounter - Brittany Neville NP - 11/30/2023 11:11 AM EDT Please call Dr. Brito office and ask the following questions in regards to Inspire device. Her BMI is 35.96, will [place] allow this BMI Her HST is from 04/2022, does need this updated Will she be able to have MRIs If all of this is ok we will send for Inspire consult We will need to call her with an update [facility] [id number] History of Present illness Narrative* Brittany Neville [...] Medical History: Diagnosis Date Anemia Bipolar disorder ([facility]) Body mass index (BMI) of 36.0 to 36.9 Cholecystitis 2017 Acute/chronic Chronic rhinitis Controlled type 2 diabetes mellitus without complication, without long-term current use of insulin ([facility]) Gastritis 2017 GERD (gastroesophageal reflux disease) Hyperlipemia ([facility]) Insertion of Nexplanon Iron deficiency anemia Kidney stones OCD (obsessive compulsive disorder) ([facility]) Open wound of toe without complication 03/10/2023 PTSD (post-traumatic stress disorder) ([facility]) Recurrent epistaxis Seasonal allergies Umbilical hernia [...] on. She understands the risk of stroke, MD and without wearing it. She states she [...] She did switch to a provider in [place]. They did change her zanaflex and mobic [...] and see if BMI of 36 with [place] is feasible for Inspire device, if it [...] was counseled on the risks of stroke, MD, and sudden with JADON, along with the need for compliance with the CPAP/BiPAP treatment. Return to clinic: 3 months documented in this encounterPhelps [id number] History of Present illness Narrative* Jan Olmstead, PT - 10/20/2023 9:45 AM EDT [facility] Daily Note Patient: Karma Whitehead : 1980 CSN #: [id number] Referring Physician: Shawna Mcfadden DO Date: 10/20/2023 Treatment Diagnosis: LBP, cervical spine pain Onset Date: 02/18/23 PT Insurance Information: [employer] Total # of Visits Approved: 32 [...] the cervical area and her LB area.-met Pattern Chart Writer Goals Time Frame for Pattern Chart Writer Goals : 6 visits Retirement Goal 1: Pt will be independent and compliant with exercise while maintaining improved posture 50% of the time - not met Pattern Chart Writer Goal 2: Pt will be able to perform full cervical ROM without increase complaints of baseline pain with initiation to demonstrate imporved control of pain -NOT MET: continued cervical spine pain. Retirement Goal 3: Pt will report 40% improvement in overall complaints and improved tolerance to her job tasks - 40% improved. Retirement Goal 4: Pt kvng UE strength will be 5/5 without increasing pain complaints to assist in tolerance of lifting and carrying -PARTIALLY MET 4+/5 grossly. Minutes Tracking: Time In: 0945 Time Out: 1030 Minutes: 45 Timed Code Treatment Minutes: 43 Minutes Jan Olmstead PT, DPT, OCS, Cert. DN Date: 10/20/2023 documented in this encounterBON LIMA [facility]08-[facility] History of Present illness Narrative* Dwayne Khoury MD - 10/08/2023 9:00 AM EDT [facility] [address] Office Dwayne Khoury MD, PhD Caryl Mao, TOBACCO EDUCATOR-RESTAURANT MAINTENANCE TECHNICIAN Dayan Harmon PA-C Plastic Surgery New [...] mass follow up Ultrasound was done in [place] the nodule was noted but seemed consistent with a lymph node. Breast size has remained the same with weight loss Family history is positive for breast disease and breast cancer in her maternal grandmother Did she have children did breast feed Past Medical History: Past Medical History: Diagnosis Date Anxiety Asthma Back pain Bipolar 1 disorder ([facility]) Breast disorder enlarged lymph nodes in both breast Carpal tunnel syndrome Chronic pain disorder Deep vein thrombosis ([facility]) blood clot in left arm Dental [...] 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 ([facility]) 11/10/2017 Visual impairment Past Surgical History: Past Surgical History: Procedure Laterality Date ANKLE SURGERY Left x2 ARTHROSCOPY SHOULDER WITH ROTATOR CUFF REPAIR Right 05/15/2022 Performed by Ana Paula Ingram MD at [facility] DEBRIDEMENT Right 05/15/2022 Performed by Ana Paula Ingram MD at [facility] DECOMPRESSION OF SUBACROMIAL SPACE WITH PARTIAL ACROMIOPLASTY Right 05/15/2022 Performed by Ana Paula Ingram MD at [facility] INJECTION BLOCK EPIDURAL STEROID LUMBAR/SACRAL: L 4/5 WU N/A 04/22/2021 Performed by Pete Silver MD at [facility] INJECTION BLOCK SACROILIAC JOINT Left 03/27/2023 Performed by Pete Silver MD at [facility] CERVICAL OR THORACIC EPIDURAL BLOCK WITH STEROIDS: C67 WU N/A 01/29/2018 Performed by Pete Silver MD at [facility] INJECTION LUMBAR OR SACRAL EPIDURAL BLOCK WITH STEROIDS: L45 WU N/A 10/15/2018 Performed by Pete Silver MD at [facility] MEDIAL BRANCH NERVE BLOCK: bilat L45 51 Bilateral 07/30/2018 Performed by Pete Silver MD at [facility] INJECTION SPINE TRANSFORAMINAL: left C 5,6 Nroot Left 01/09/2023 Performed by Pete Silver MD at [facility] LAPAROSCOPIC CHOLECYSTECTOMY N/A 09/16/2016 Performed by Juan Ramon Jean MD at [facility] LIVER BIOPSY EMA PROCEDURE Right 05/15/2022 Performed by Ana Paula Ingram MD at [facility] NASAL SURGERY REPAIR HERNIA UMBILICAL 09/16/2016 Performed by Juan Ramon Jean MD at [facility] TONSILLECTOMY Allergies: Allergies Allergen Reactions Metformin [...] 5 blood-glucose meter (TRUE METRIX GLUCOSE METER) [facility], use to test BLOOD SUGAR TWICE DAILY, [...] , Rfl: lancets (UNILET LANCET) [address] [facility], Use to test BLOOD SUGAR TWICE DAILY, [...] on 04/28/2023), Disp: 30 tablet, Rfl: 0 oixngdkv-lpnm-SK-calcium &mins (THERAGRAN-M) 9 mg iron-400 mcg tablet, [...] nipple: 25 Areolar Diameter: 4.5 6 Female dye expert present: yes. Impression : No diagnosis found. [...] We also discussed that breast size can electronic data interchange specialist the years with weight loss and weight [...] status: non-smoker DAYAN HARMON PA-C I, DWAYNE KOHURY MD, PHD personally performed the face to [...] procedures Referring and communicating with other health direct care staffer (not separately reported) Documenting clinical information in the electronic or other health record Independently interpreting results (not separately reported) and communicating results to the patient/family/caregiver Care coordination (not separately reported) Please note that portions of this note were generated using voice recognition [employer] dictation software. Although every effort was made to ensure the accuracy of this automated assistant infant toddler teacher, some errors in assistant infant toddler teacher may have occurred. documented in this encounterThe [facility]07-23-2024 History of Present illness Narrative* Filomena Raphael [...] her next appt. documented in this encounterBON LIMA [facility]07-09-2024 Miscellaneous Notes* Telephone Encounter - Argenis Storm RN - 09/08/2023 2:28 PM EDT Patient is asking for an increase in the Cymbalta. She is currently taking 30 mg daily and states it is no longer giving her relief. Patient is also requesting work restrictions to not lift any more than 20 lbs. She works at [employer] and it is difficult for her to [...] Will call back tomorrow. documented in this encounterThe [facility] of [facility]07-09-2024 Telephone encounter Note* Telephone Encounter - Argenis Storm RN - 09/08/2023 2:28 PM EDT Patient is asking for an increase in the Cymbalta. She is currently taking 30 mg daily and states it is no longer giving her relief. Patient is also requesting work restrictions to not lift any more than 20 lbs. She works at [employer] and it is difficult for her to lift the pop and other items overhead. Patient did make an appointment for 09/24/23 to be re-evaluated for a lumbar MBB that was denied. She has completed PT and dry needling. [facility]07-09-2024 Telephone encounter Note* Telephone Encounter - UMESH Hodge - 09/08/2023 2:28 PM EDT Is she still on fluoxetine? [facility]07-09-2024 Telephone encounter Note* Telephone Encounter - Patricia Clay RN - 09/08/2023 2:28 PM EDT Patient was called and states that she is on 60 mg Fluoxetine. [facility]07-09-2024 Telephone encounter Note* Telephone Encounter - UMESH Hdoge - 09/08/2023 2:28 PM EDT I am not willing to escalate cymbalta due to higher dose of fluoxetine. [facility]07-09-2024 Telephone encounter Note* Telephone Encounter - Patricia Clay RN - 09/08/2023 2:28 PM EDT Call placed to patient to inform her of provider's response and to inform her that a note has been written with work restrictions. Patient answered the phone but continued a conversation with someoneon her end of the phone. Will call back tomorrow. [facility]06-26-2024 History of Present illness Narrative* Kofi Villegas, PT - 08/26/2023 2:30 PM EDT [facility] Daily Note Patient: Karma Whitehead : 1980 CSN #: [id number] Referring Physician: Shawna Mcfadden DO Date: 08/26/2023 Diagnosis: Z76.89 - Persons encountering health services in other specified circumstances Treatment Diagnosis: pain in cervical and LB Onset Date: 02/18/23 PT Insurance Information: [employer] Total # of Visits Approved: 24 Per [...] the cervical area and her LB area.-met Retirement Goals Time Frame for Pattern Chart Writer Goals : 6 visits Retirement Goal 1: Pt will be independent and compliant with exercise while maintaining improved posture 50% of the time. Retirement Goal 2: Pt will be able to perform full cervical ROM without increase complaints of baseline pain with initiation to demonstrate imporved control of pain. Pattern Chart Writer Goal 3: Pt will report 40% improvement in overall complaints and improved tolerance to her job tasks. Minutes Tracking: Time In: 1430 Time Out: 1500 Minutes: 30 Timed Code Treatment Minutes: 29 Minutes Kofi Villegas, PT, DPT Date: 08/26/2023 documented in this encounterBON STEVEN VILLE [id number] History of Present illness Narrative* Filomena Raphael - 08/21/2023 10:45 AM EDT Physical Therapy Disregard the no show note on 08/17. This was added in error. * Jan Olmstead PT - 08/21/2023 10:45 AM EDT [facility] Daily Note Patient: Karma Whitehead : 1980 CSN #: [id number] Referring Physician: Shawna Mcfadden DO Date: 08/21/2023 Treatment Diagnosis: pain in cervical and LB Onset Date: 02/18/23 PT Insurance Information: [place] [employer] Plan Total # of Visits Approved: 24 [...] the cervical area and her LB area. Retirement Goals Time Frame for Retirement Goals : 6 visits Pattern Chart Writer Goal 1: Pt will be independent and compliant with exercise while maintaining improved posture 50% of the time. Pattern Chart Writer Goal 2: Pt will be able to perform full cervical ROM without increase complaints of baseline pain with initiation to demonstrate imporved control of pain. Retirement Goal 3: Pt will report 40% improvement in overall complaints and improved tolerance to her job tasks. Retirement Goal 4: Pt kvng UE strength will be 5/5 without increasing pain complaints to assist in tolerance of lifting and carrying. Minutes Tracking: Time In: 1045 Time Out: 1116 Minutes: 31 Timed Code Treatment Minutes: 29 Minutes Jan Olmstead PT, DPT Date: 08/21/2023 documented in this encounterBON LIMA [facility]06-19-2024 Miscellaneous Notes* Telephone Encounter - Arcelia Corona CNA - 08/19/2023 4:44 PM EDT Karma left a voicemail requesting a refill and an increased dose for Cymbalta documented in this encounterThe [facility]06-19-2024 Telephone encounter Note* Telephone Encounter - Arcelia Corona CNA - 08/19/2023 4:44 PM EDT Karma left a voicemail requesting a refill and an increased dose for Cymbalta [facility]06-11-2024 History of Present illness Narrative* Jan Olmstead, PT - 08/11/2023 1:15 PM EDT [facility] Daily Note Patient: Karma Whitehead : 1980 CSN #: [id number] Referring Physician: Shawna Mcfadden DO Date: 08/11/2023 Diagnosis: Z76.89 - Persons encountering health services in other specified circumstances Treatment Diagnosis: pain in cervical and LB Onset Date: 02/18/23 PT Insurance Information: [employer] Total # of Visits Approved: 24 Per [...] the cervical area and her LB area. Pattern Chart Writer Goals Time Frame for Retirement Goals : 6 visits Pattern Chart Writer Goal 1: Pt will be independent and compliant with exercise while maintaining improved posture 50% of the time. Pattern Chart Writer Goal 2: Pt will be able to perform full cervical ROM without increase complaints of baseline pain with initiation to demonstrate imporved control of pain. Pattern Chart Writer Goal 3: Pt will report 40% improvement in overall complaints and improved tolerance to her job tasks. Pattern Chart Writer Goal 4: Pt kvng UE strength will be 5/5 without increasing pain complaints to assist in tolerance of lifting and carrying. Minutes Tracking: Time In: 1330 Time Out: 1400 Minutes: 30 Timed Code Treatment Minutes: 28 Minutes Jan Olmstead PT, DPT Date: 08/11/[address] [facility] [address] History of Present illness Narrative* Filomena Raphael - 07/14/2023 11:15 AM EDT Physical Therapy [facility] Date: 07/14/2023 Patient Name: Karma [...] does not require skilled services due to: Therapist/Site Safety Manager will attempt to see this patient, at our earliest opportunity. Filomena Raphael Date: 07/14/[address] [facility] [address]-07-2024 Miscellaneous Notes* Telephone Encounter - [...] when I put in for the appeal buckeye had called me and informed me patient buckeye had laps. Patient was sent a letter per buckeye.Patient let me know that maricruzrachelteresa is now valid ok to put back in for the procedure. Will be resubmitting for the procedure today. documented in this encounterVermont Psychiatric Care HospitalFunding Profiles05-07-2024 Telephone encounter Note* Telephone Encounter - Maty [...] with neuropathy and tingling in bilateral hands. [facility] [employer] [id number] Telephone encounter Note* Telephone Encounter - Alfredito William - 07/07/2023 9:10 AM EDT Contacted patient letting her know back when I put in for the appeal buckeye had called me and informed me patient buckeye had laps. Patient was sent a letter per buckeye.Patient let me know that tessa is now valid ok to put back in for the procedure. Will be resubmitting for the procedure today. [facility] [id number] History of Present illness Narrative* ADIA Albright [...] or lymphadenopathy. I reviewed notes from her staffing consultant dated 05/05/2023, imaging including mammogram and ultrasounddated 03/16/2023 and 03/25/2023, history form dated 06/02/2023. Past Medical History Past Medical History: Diagnosis Date Anxiety Asthma Back pain Bipolar 1 disorder ([facility]) Breast disorder enlarged lymph nodes in both breast Carpal tunnel syndrome Chronic pain disorder Deep vein thrombosis ([facility]) blood clot in left [...] 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 ([facility]) 11/10/2017 Visual impairment Past Surgical History Past Surgical History: Procedure Laterality Date ANKLE SURGERY Left x2 ARTHROSCOPY SHOULDER WITH ROTATOR CUFF REPAIR Right 05/15/2022 Performed by Ana Paula Ingram MD at [facility] DEBRIDEMENT Right 05/15/2022 Performed by Ana Paula Ingram MD at [facility] DECOMPRESSION OF SUBACROMIAL SPACE WITH PARTIAL ACROMIOPLASTY Right 05/15/2022 Performed by Ana Paula Ingram MD at [facility] INJECTION BLOCK EPIDURAL STEROID LUMBAR/SACRAL: L 4/5 WU N/A 04/22/2021 Performed by Pete Silver MD at [facility] INJECTION BLOCK SACROILIAC JOINT Left 03/27/2023 Performed by Pete Silver MD at [facility] INJECTION CERVICAL OR THORACIC EPIDURAL BLOCK WITH STEROIDS: C67 WU N/A 01/29/2018 Performed by Pete Silver MD at [facility] LUMBAR OR SACRAL EPIDURAL BLOCK WITH STEROIDS: L45 WU N/A 10/15/2018 Performed by Pete Silver MD at [facility] INJECTION MEDIAL BRANCH NERVE BLOCK: bilat L45 51 Bilateral 07/30/2018 Performed by Pete Silver MD at [facility] INJECTION SPINE TRANSFORAMINAL: left C 5,6 Nroot Left 01/09/2023 Performed by Pete Silver MD at [facility] LAPAROSCOPIC CHOLECYSTECTOMY N/A 09/16/2016 Performed by Juan Ramon Jean MD at [facility] LIVER BIOPSY EMA PROCEDURE Right 05/15/2022 Performed by Ana Paula Ingram MD at [facility] NASAL SURGERY REPAIR HERNIA UMBILICAL 09/16/2016 Performed by Juan Ramon Jean MD at [facility] TONSILLECTOMY Family History Family History Problem [...] 5 blood-glucose meter (TRUE METRIX GLUCOSE METER) [facility], use to test BLOOD SUGAR TWICE DAILY, [...] , Rfl: lancets (UNILET LANCET) [address] [facility], Use to test BLOOD SUGAR TWICE DAILY, [...] on 04/28/2023), Disp: 30 tablet, Rfl: 0 vrwxewkx-vwkn-JJ-calcium &mins (THERAGRAN-M) 9 mg iron-400 mcg tablet, [...] a bilateral screening mammogram on 03/16/2023 through [facility]. Her breasttissue is almost entirely fatty. There was a 1 cm mass in the posterior upper-outer right breast 17cm from the nipple. They thought this was likely a lymph node but recommended that she return for additional imaging. She had the imaging done in [place]. They did a right diagnostic mammogram and [...] me with any concerns. documented in this encounterThe [facility]03-12-2024 Miscellaneous Notes* Telephone Encounter - Ifrah Lyly - 05/12/2023 10:56 AM EDT Spoke with patient and scheduled with Dr. Robledo 4/2. Patient voiced understanding of appointment details. Patient was offered sooner dates but declined per her availability. documented in this encounterThe [facility] of [facility]03-12-2024 Telephone encounter Note* Telephone Encounter - [facility] - 05/12/2023 10:56 AM EDT Spoke with patient and scheduled with Dr. Robledo 4/2. Patient voiced understanding of appointment details. Patient was offered sooner dates but declined per her availability. [facility] [id number] Miscellaneous Notes* Telephone Encounter - Maty Fulton RN - 04/30/2023 1:28 PM EST Last Office Visit: 04/28/2023 Next Office Visit: Visit date not found Last Urine Drug Screen: No results found for: BENZOSCRN OARRS appropriate documented in this encounterThe [facility] of [facility]02-29-2024 Telephone encounter Note* Telephone Encounter - Maty Fulton RN - 04/30/2023 1:28 PM EST Last Office Visit: 04/28/2023 Next Office Visit: Visit date not found Last Urine Drug Screen: No results found for: BENZOSCRN OARRS appropriate [facility]02-27-2024 History of Present illness Narrative* UMESH Hodge - 04/28/2023 10:45 AM EST [facility] [address] [place] [address] Patient: Karma Banegas Sex: female : 1980 [...] spine (09/2022 last visit for 11/05/22) at [facility] with no relief Back: 10/15/18 L4/5 [...] Anxiety Asthma Back pain Bipolar 1 disorder ([facility]) Breast disorder enlarged lymph nodes in both breast Carpal tunnel syndrome Chronic pain disorder Deep vein thrombosis ([facility]) blood clot in left [...] 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 ([facility]) 11/10/2017 Visual impairment Past Surgical History: Procedure Laterality Date ANKLE SURGERY Left x2 ARTHROSCOPY SHOULDER WITH ROTATOR CUFF REPAIR Right 05/15/2022 Performed by Ana Paula Ingram MD at [facility] DEBRIDEMENT Right 05/15/2022 Performed by Ana Paula Ingram MD at [facility] DECOMPRESSION OF SUBACROMIAL SPACE WITH PARTIAL ACROMIOPLASTY Right 05/15/2022 Performed by Ana Paula Ingram MD at [facility] INJECTION BLOCK EPIDURAL STEROID LUMBAR/SACRAL: L 4/5 WU N/A 04/22/2021 Performed by Pete Silver MD at [facility] INJECTION BLOCK SACROILIAC JOINT Left 03/27/2023 Performed by Pete Silver MD at [facility] CERVICAL OR THORACIC EPIDURAL BLOCK WITH STEROIDS: C67 WU N/A 01/29/2018 Performed by Pete Silver MD at [facility] LUMBAR OR SACRAL EPIDURAL BLOCK WITH STEROIDS: L45 WU N/A 10/15/2018 Performed by Pete Silver MD at [facility] INJECTION MEDIAL BRANCH NERVE BLOCK: bilat L45 51 Bilateral 07/30/2018 Performed by Pete Silver MD at [facility] SPINE TRANSFORAMINAL: left C 5,6 Nroot Left 01/09/2023 Performed by Pete Silver MD at [facility] LAPAROSCOPIC CHOLECYSTECTOMY N/A 09/16/2016 Performed by Juan Ramon Jean MD at [facility] LIVER BIOPSY EMA PROCEDURE Right 05/15/2022 Performed by Ana Paula Ingram MD at [facility] NASAL SURGERY REPAIR HERNIA UMBILICAL 09/16/2016 Performed by Juan Ramon Jean MD at [facility] TONSILLECTOMY Allergies Allergen Reactions Metformin Severe [...] Scribed for and in the presence of MUESH HODGE by Peg Conrad CNA. Provider Statement: I, UMESH HODGE, personally performed the services described in the documentation, as scribed by Peg Conrad CNA in my presence, and it is both accurate and complete. Peg Conrad CNA 04/28/23 1207 UMESH Hodge 04/30/23 1141 documented in this encounterThe [facility] Instructions* Patient Instructions* Peg Conrad, CLAUDE - 04/28/2023 10:45 AM EST Facet Injection [...] the nearest emergency room. documented in this encounterThe [facility]02-19-[facility]24 Hospital Discharge instructions* Discharge Instructions* Precious Urbina APRN - CNP - 04/20/2023 1:50 PM EST Increase fluid Tylenol Motrin for cough Continue home medications * Attachments The following attachments cannot be sent through Care Everywhere. * Head Injury: Closed: General Info (Niuean) * Cervical Strain (Niuean) [facility] Miscellaneous Notes* Telephone Encounter - Patricia Clay [...] medications prescribed to someone other than her. Fruit Worker reiterated this to patient. Patient's pharmacy was confirmed with her. Order pended for review and signature. documented in this encounterThe [facility]01-30-[facility]24 Telephone encounter Note* Telephone Encounter - Patricia [...] are prescribed to someone other than her. [facility] [id number] Telephone encounter Note* Telephone Encounter - UMESH Hodge - 03/31/2023 9:30 AM EST Is she still taking prozac? What dosage? Any other antidepressants? [facility]01-30-2024 Telephone encounter Note* Telephone Encounter - Patricia Clay RN - 03/31/2023 9:30 AM EST Call placed to patient to confirm whether or not she is taking Prozac or other antidepressants. Patient states she is taking 40 mg Prozac daily. That is the only antidepressant that she takes. She isprescribed Latuda and Lamictal to treat Bipolar. [facility]01-30-2024 Telephone encounter Note* Telephone Encounter - UMESH Hodge - 03/31/2023 9:30 AM EST Can try cymbalta 30mg once daily [facility]01-30-2024 Telephone encounter Note* Telephone Encounter - Patricia Clay RN - 03/31/2023 9:30 AM EST Call placed to patient to inform her of provider's response. Patient is also educated not to take medications that are prescribed to someone other than her. Patient voices that she is aware that she should not be taking medications prescribed to someone other than her. Fruit Worker reiterated this to patient. Patient's pharmacy was confirmed with her. Order pended for review and signature. [facility]01-04-2024 Evaluation note* Encounter Date Diagnosis Assessment Notes [...] was counseling done by myself, Rhina ROBERTSON. [employer] Other 01-01-2024 Hospital Discharge instructions* Discharge Instructions* Sil Sullivan DO - 03/02/2023 7:49 PM EST Please follow-up with your GI doctor, trial enema at home, return to the ER for worsening abdominalpain, inability to pass gas, or nausea, vomiting * Attachments The following attachments cannot be sent through Care Everywhere. * Constipation (Niuean) documented in [facility] Miscellaneous Notes* Telephone Encounter - [...] when she was under his care in [place]. She is currently taking Meloxicam that helps [...] when she was under his care in [place]. She is currently taking Meloxicam that helps [...] add Dr. Silver on the note. PVU. [facility]12-22-2023 Telephone encounter Note* Telephone Encounter - Pete Silver MD - 02/20/2023 10:04 AM EST Discussed with nurse, I agree with Fartun's treatment plan going forward. [facility]12-22-2023 Telephone encounter Note* Telephone Encounter - UMESH Hodge - 02/20/2023 10:04 AM EST No Rx for tramadol. I have never written prescription for bra so I would not know how to proceed with anything like that. [facility]12-22-2023 Telephone encounter Note* Telephone Encounter - Argenis Storm RN - 02/20/2023 10:04 AM EST Patient aware of response. She states whatever . [facility]12-20-2023 Evaluation note* Encounter Date Diagnosis Assessment Notes Treatment Notes Treatment Clinical Notes Jan, Constipation, unspecified constipation type (ICD-10 - K59.00) Jan, Constipation (ICD-10 - K59.00) [employer] Other 12-12-2023 Miscellaneous Notes* Telephone Encounter - [...] - 02/10/2023 8:18 AM EST GOT APPROVAL [facility]12-12-2023 Telephone encounter Note* Telephone Encounter - Maty Fulton RN - 02/10/2023 8:18 AM EST Pt is scheduled 03/27 for procedure and has f/u appt [facility]12-07-2023 Evaluation note* Encounter Date Diagnosis Assessment Notes [...] R10.9) Jan, Rectal bleed (ICD-10 - K62.5) [employer] Other 11-16-2023 Evaluation note* Encounter Date Diagnosis [...] was counseling done by myself, Rhina ROBERTSON. [employer] Other 11-08-2023 Evaluation note* Encounter Date Diagnosis [...] HAVE PATIENT START DOCUSATE 3 CAPSULES DAILY. [employer] Other 06-29-2023 Evaluation note* Encounter Date Diagnosis Assessment Notes Treatment Notes Treatment Clinical Notes Jul, Obesity (ICD-10 - E66.9) Jul, BMI 34.0-34.9,adult (ICD-10 - Z68.34) Jul, Other Summary of Visi t: (A) discussed continuing to work on small goals until stress decreases and she has the energy to increase goals (B) discussed healhtier choices at [place] food blog reviewed (C) reviewed food storage tips for keeping produce fresh longer Patient set the following goals: - NEW: continue to choose sugar free beverages- not reviewed [employer] Other 05-30-2023 Evaluation note* Encounter Date Diagnosis [...] was counseling done by myself, Rhina ROBERTSON. [employer] Other 03-21-2023 Evaluation note* Encounter Date Diagnosis [...] was counseling done by myself, Rhina ROBERTSON. [employer] Other 02-07-2023 Evaluation note* Encounter Date Diagnosis [...] set the following goals: not reviewed today [employer] Other 02-07-2023 Evaluation note* Encounter Date Diagnosis [...] was counseling done by myself, Rhina ROBERTSON. [employer] Other 12-28-2022 Evaluation note* Encounter Date Diagnosis [...] patient set personal goal using given handout. [employer] Other 12-27-2022 Evaluation note* Encounter Date Diagnosis [...] was counseling done by myself, Rhina ROBERTSON. [employer] Other 12-01-2022 NotePROCEDURE: XR ANKLE LT MIN [...] Electronically authenticated by: ONEL CLARK Date: 2022-01-29 22:30[facility]12-01-2022 NotePROCEDURE: XR ANKLE LT MIN 3 V, [...] Electronically authenticated by: ONEL CLARK Date: 2022-01-29 22:30[facility]11-15-2022 Evaluation note* Encounter Date Diagnosis Assessment Notes [...] was counseling done by myself, Rhina ROBERTSON. [employer] Other 10-05-2022 Evaluation note* Encounter Date Diagnosis [...] was counseling done by myself, Rhina ROBERTSON. [employer] Other 08-30-2022 Evaluation note* Encounter Date Diagnosis Assessment Notes Treatment Notes Treatment Clinical Notes Sep, Fatty liver (ICD-10 - K76.0) ENCOURAGED WEIGHT LOSS Sep, Obesity (BMI 30-39.9) (ICD-10 - E66.9) [employer] Other 08-23-2022 Hospital Discharge instructions* Discharge Instructions* Satnley Almonte PA-C - 10/22/2021 2:03 PM EDT Follow-up with primary care doctor 7 to 10 days for reevaluation. Take Motrin 800 mg as directed with food. Start eardrops left ear as directed. Promptly return to emergency department for new, changing or worsening of symptoms or other concerns. documented in this encounterBON [employer] [facility] [employer] Phone: evaluation + Plan note No data available for this section [facility]* Diagnosis Pilonidal cyst- Primary Pilonidal cyst without mention of abscess documented in this encounter [employer] Work Phone: evalvosewx note* Diagnosis Acute diffuse otitis externa of left ear- Primary documented in this encounter [employer] Work Phone: [email or web address] noteNo InformationNort [employer] Other Evaluation note* Diagnosis Constipation, unspecified constipation type- Primary documented in this encounter [facility] AppSharealuEcelles Carson noteNo assessment information available [facility] Work Phone: Evaluation note* Diagnosis Closed head injury, initial encounter- Primary Fall due to slipping on ice or snow, initial encounter Acute cervical myofascial strain, initial encounter documented in this encounter [facility] AppSharealuation note* Diagnosis Onset Date Resolution Status ADHD acute BMI 36.0-36.9,adult acute Constipation acute Diabetes mellitus with hyperglycemia acute Fatty liver acute IBS (irritable bowel syndrome) acute Obesity acute Shifting sleep-work schedule, affecting sleep acute Constipation acute Elevated liver function tests acute Fatty liver acute IBS (irritable bowel syndrome) acute [facility] Work Phone: Evalubkjpk note* Diagnosis Dizziness- Primary Dizziness and giddiness documented in this encounter [employer] [facility] note* Diagnosis JADON (obstructive sleep apnea)- Primary Obstructive sleep apnea (adult) (pediatric) Tension headache Chronic bilateral low back pain, unspecified whether sciatica present Paresthesias Disturbance of skin sensation documented in this encounter [facility]* Diagnosis JADON (obstructive sleep apnea)- Primary Obstructive sleep apnea (adult) (pediatric) documented in this encounter [facility]* Diagnosis Chronic rhinitis documented in this encounter [facility] HealthcareEvaluation note* Diagnosis 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, unspecified whether nursing home insulin use ([facility])- Primary Vitamin D deficiency Weight gain Other symptoms concerning nutrition, metabolism, and development Encounter for dietary consultation Hyperlipemia, mixed ([facility]/HCC) Mixed hyperlipidemia Class 2 severe obesity due to excess calories with serious comorbidity and body mass index (BMI) of 39.0 to 39.9 in adult (CMS/HCC) documented in this encounter [facility] note* Diagnosis Lumbosacral spondylosis without myelopathy- Primary [facility] Diagnosis Mass of upper outer quadrant of right breast- Primary Abnormal mammogram Abnormal mammogram, unspecified Symptomatic mammary hypertrophy [facility]* Diagnosis Macromastia- Primary Hypertrophy of breast [facility]* Diagnosis Hormone imbalance Hormone disorder Unspecified endocrine disorder Toenail fungus documented in this encounter [facility] note* Diagnosis Obstructive sleep apnea- Primary Obstructive sleep apnea (adult) (pediatric) Intolerance of continuous positive airway pressure (CPAP) ventilation Body mass index 34.0-34.9, adult Body Mass Index 34.0-34.9, adult documented in this encounter [facility]* Diagnosis Well woman exam with routine gynecological exam Routine gynecological examination Breast cancer screening by mammogram documented in this encounter [facility] note* Diagnosis Onset Date Resolution Status Admit Date Constipation acute June 02, 025 9:26am Fatty liver acute June 02 9:26am IBS (irritable bowel syndrome) acute June 02, 2024 9:26am [facility] Work Phone: Evaluation note* Diagnosis Obstructive sleep apnea- Primary Obstructive sleep apnea (adult) (pediatric) Intolerance of continuous positive airway pressure (CPAP) ventilation Class 3 severe obesity with serious comorbidity and body mass index (BMI) of 40.0 to 44.9 in adult, unspecified obesity type documented in this encounter [facility]* Diagnosis Nexplanon removal documented in this encounter [facility]* Diagnosis Post-traumatic osteoarthritis of left ankle- Primary Midline low back pain without sciatica, unspecified chronicity [facility] Diagnosis Itching with irritation Nexplanon removal documented in this encounter [facility]* Diagnosis 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, unspecified whether long chain beamer insulin use- Primary Vitamin D deficiency Weight gain Other symptoms concerning nutrition, metabolism, and development Encounter for dietary consultation Hyperlipemia, mixed ([facility]) Mixed hyperlipidemia Class 3 severe obesity due to excess calories without serious comorbidity with body mass index (BMI) of 40.0 to 44.9 in adult documented in this encounter [facility] note* Diagnosis Obstructive sleep apnea- Primary Obstructive sleep apnea (adult) (pediatric) Intolerance of continuous positive airway pressure (CPAP) ventilation documented in this encounter [facility]* Diagnosis Obstructive sleep apnea- Primary Obstructive sleep apnea (adult) (pediatric) documented in this encounter [facility]* Diagnosis Obstructive sleep apnea- Primary Obstructive sleep apnea (adult) (pediatric) Class 3 severe obesity with serious comorbidity and body mass index (BMI) of 40.0 to 44.9 in adult, unspecified obesity type ([facility]) Breakdown (mechanical) of implanted electronic neurostimulator, generator, sequela documented in this encounter [facility] HealthcareHistory general Narrative - Reported* Type Description Date Medical History PTSD Medical History DIVERTICULITOUS Surgical History 2 BACK INJECTIONS 2014 Surgical History LEFT ANKLE 2002 Surgical History CHOLECYSTECTOMY Hospitalization History SEE ABOVE [employer] Other [employer] general Narrative - Reported* Type Description Date Medical History PTSD Medical History DIVERTICULITOUS Medical History bipolar Medical History ADHD Surgical History 2 BACK INJECTIONS 2014 Surgical History LEFT ANKLE 2002 Surgical History CHOLECYSTECTOMY Surgical History nasal surgery Hospitalization History SEE ABOVE [employer] Other [employer] general Narrative - Reported* Type Description Date Medical History PTSD Medical History DIVERTICULITOUS Medical History bipolar Medical History ADHD Surgical History 2 BACK INJECTIONS 2014 Surgical History LEFT ANKLE 2002 Surgical History CHOLECYSTECTOMY Surgical History nasal surgery Surgical History right Rotator surgery 05-15-22 Hospitalization History SEE ABOVE [employer] Other [employer] general Narrative - Reported* Type Description Date Medical History PTSD Medical History DIVERTICULITOUS Medical History bipolar Medical History ADHD Medical History rotator cuff tear Surgical History 2 BACK INJECTIONS 2014 Surgical History LEFT ANKLE 2002 Surgical History CHOLECYSTECTOMY Surgical History nasal surgery Surgical History right Rotator surgery 05-15-22 Hospitalization History SEE ABOVE [employer] Other [employer] general Narrative - Reported* Type Description Date Medical History PTSD Medical History DIVERTICULITOUS Medical History bipolar Medical History ADHD Medical History rotator cuff tear Surgical History 2 BACK INJECTIONS 2014 Surgical History LEFT ANKLE 2001 Surgical History CHOLECYSTECTOMY Surgical History nasal surgery Surgical History right Rotator surgery 05-15-22 Surgical History Neck injections/root burnt 12/31 Hospitalization History SEE ABOVE [employer] Other History general Narrative - Reported* Type Description Date Medical History PTSD Medical History DIVERTICULITOUS Medical History bipolar Medical History ADHD Medical History rotator cuff tear Surgical History 2 BACK INJECTIONS 2014 Surgical History LEFT ANKLE 2002 Surgical History CHOLECYSTECTOMY Surgical History nasal surgery Surgical History right Rotator surgery 05-15-22 Surgical History Neck injections/root burnt 12/31 Hospitalization History SEE ABOVE Hospitalization History [facility] 03-02-2023 [employer] Other Hospital Discharge instructions* Attachments The following attachments cannot be sent through Care Everywhere. * Pilonidal Abscess (Niuean) [facility] Phone: Hospital Discharge instructions No data available for this section [facility] Additional Instructions No exertional activity Ice to incisions for pain and swelling Medications as prescribed May shower in 24 hours Call the office for any questions or concerns [facility] Hospital Discharge instructions Additional Instructions No exertional activity, no lifting or straining, Ice to incision for 20-minute intervals May shower in 24 hours Pain medication and antibiotic as prescribed Call the office for any questions or concerns [facility] Work Phone: InstructionsNot on filedocumented in this encounter [facility] filedocumented in this encounter [facility]ructionsNot on filedocumented in this encounter [facility]Not on filedocumented in this encounter [facility]Not on filedocumented in this encounter [facility] SystemInstructionsNot on filedocumented in this encounter [facility]ructionsNot on filedocumented in this encounter [facility] No data available for this section [facility] CenterReason for referral (narrative)* Consultation (Routine) - Pending Review Specialty Diagnoses / Procedures Referred By Karla cuadra Referred To Contact Otolaryngology Diagnoses JADON (obstructive sleep apnea) Procedures AR OFFICE/OUTPATIENT NEW HIGH MDM 60 MINUTES Brittany Neville NP [address] [place] [address] Referral ID Status Reason Start Date Expiration Date Visits Requested Visits Authorized [id number] Pending Review Specialty Services Required 11/30/2023 05/28/20[address] Brito for Inspire device. [facility] HealthcareReason for referral (narrative)No reason for referral information availableMer[facility] Work Phone: Reason for visit Narrative* Consultation (Routine) - Pending Review Specialty Diagnoses / Procedures Referred By Karla t Referred To Contact Breast Surgery Diagnoses Abnormal mammogram Carmen Fisher MD [address] [place] [id number] Ila Trevizo MD [address] [place] [phone] Referral ID Status Reason Start Date Expiration Date V isits Requested Visits Authorized [id number] Pending Review 05/06/2023 05/05/[address] [facility] Summary Purpose Family History No [...] Time Advance Directives No August 29 3:24pm Reason for Referral Reason *FU 11/05 Please [...] UMESH [address] [place] [id number] Referral ID Status Reason Start Date Expiration Date V isits Requested Visits Authorized [id number] Pending Review 04/28/2023 04/27/2024 1 1 Chief [...] Sleep Apnea August 10, 2024 6:11 am Chief Complaint Admit Date Sleep Apnea July [...] CREATED AUTHOR 08/26/2017 [facility] DATE CREATED AUTHOR AUTHOR'S ORGANIZ ATION 05/30/2022 [facility] DATE CREATED AUTHOR AUTHOR'S ORGANIZ ATION 01/18/2023 [facility] DATE CREATED AUTHOR AUTHOR'S ORGANIZ ATION 06/04/2023 [facility] DATE CREATED AUTHOR AUTHOR'S ORGANIZ ATION 10/10/2023 [facility] DATE CREATED AUTHOR AUTHOR'S ORGANIZ ATION 12/22/2023 [facility] DATE CREATED AUTHOR AUTHOR'S ORGANIZ ATION 07/10/2024 [facility] DATE CREATED AUTHOR AUTHOR'S ORGANIZ ATION 07/17/2024 [facility] DATE CREATED AUTHOR AUTHOR'S ORGANIZ ATION 08/08/2024 [facility] DATE CREATED AUTHOR AUTHOR'S ORGANIZ ATION 08/21/2024 [facility] DATE CREATED AUTHOR AUTHOR'S ORGANIZ ATION 09/22/2024 [facility] DATE CREATED AUTHOR AUTHOR'S ORGANIZ ATION 09/22/2024 [facility] Reason for Visit (unrecogniz [...] month ago. Pt evaluated and treated at [facility].Pt fell again x2 weeks ago. Pt evaluated at [facility] and treated for right ankle and wrist fracture. Pt has MRI scheduled.Pt currently being treated by Pain Management. Reason Onset Date Comments Advice Only 07/20/2024 Reason Comments Follow-up Reason Comments Post-op Post op Inspire Reason Comments Post-op Having problems with inspire Reason Comments Post-op Still having trouble with Inspire Ordered Prescriptions (unrec ognized section and content) Prescription Sig Dispensed Refills Start Date End Da te clindamycin (CLEOCIN) 150 MG capsule Take 3 capsules by mouth in the morning and 3 capsules at noon and 3 capsules before bedtime. Do all this for 10 days. 90 capsule 0 10/12/2021 10/22/2021 Prescription Sig Dispensed Refills Start Date End Da te asvlhver-aufabjljl-jtnfkh ortisone (CORTISPORIN) 3.5-04904-[address] 4 drops into the [...] Care Teams (unrecognized sec tion and content) 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 Relationship Specialty Start Date End Date Shawna Mcfadden DO [address] [place], [place] [phone] PCP - General Family Medicine 10/12/21 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 Relationship Specialty Start Date End Date Shawna Mcfadden DO [address] [facility], [place] [phone] PCP - General Family Medicine 10/12/21 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 Relationship Specialty Start Date End Date Shawna Mcfadden DO [address] [facility], [place] [phone] PCP - General Family Medicine 10/12/21 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 Relationship Specialty Start Date End Date Shawna Mcfadden DO [address] [place], [place] [phone] PCP - General Family Medicine 10/12/21 Team [...] Care Provider Active Start: March 18, 2023 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 Relationship Specialty Start Date End Date Vicky Mcfaddenty, DO [address] [place] [address] PCP - [facility] 10/12/21 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 Relationship Specialty Start Date End Date Vicky Mcfaddenty, DO [address] [place] [address] PCP - [facility] 10/12/21 Team Status: Active Member Role Status Dates Rory Driver [facility] Primary Care Provider Active Team Status: Inactive Member Role Status Dates Gayathri Adams APRN Attending Provider Active Start: May 21, 2023 End: May 21, 2023 Rory Driver , [facility] Primary Care Provider Active Start: May 21, 2023 End: May 21, 2023 Team Status: Inactive Member Role Status Dates Jan Garg APRN Attending Provider Active Start: May 21, 2023 End: May 21, 2023 Rory Driver , [facility] Primary Care Provider Active Start: May 21, 2023 End: May 21, 2023 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 Relationship Specialty Start Date End Date Vicky Mcfaddenty, DO [address] [place] [address] PCP - [facility] 10/12/21 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 Relationship Specialty Start Date End Date Vicky Mcfaddenty, DO [address] [place] [address] PCP - General Family Medicine 10/12/21 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 Relationship Specialty Start Date End Date Loreto Mcneal APRN - ASSOCIATE CHEMIST [address] [facility] [place] [address] PCP - General 11/11/23 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 Relationship Specialty Start Date End Date Loreto Mcneal APRN - ASSOCIATE CHEMIST [address] [facility] [place] [address] PCP - General 11/11/23 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 Relationship Specialty Start Date End Date Loreto Mcneal APRN - ASSOCIATE CHEMIST [address] [facility] [place] [address] PCP - General 11/11/23 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 Relationship Specialty Start Date End Date Loreto Mcneal APRN - ASSOCIATE CHEMIST [address] [facility] [place] [address] PCP - General 11/11/23 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 Relationship Specialty Start Date End Date Shawna Mcfadden DO [address] [place] [address] PCP - General Family Medicine 04/14/22 Key Andrea, ASSOCIATE CHEMIST [address] [place] [address] Referring Physician Family Medicine 08/13/23 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 Relationship Specialty Start Date End Date Key Andrea, ASSOCIATE CHEMIST [address] [place] [address] Referring Physician Family Medicine 08/13/23 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 Relationship Specialty Start Date End Date ZullyKey Robb NP [address] [place] [address] Referring Physician Family Medicine 08/13/23 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 Relationship Specialty Start Date End Date Key Andrea NP [address] [place] [address] Referring Physician Family Medicine 08/13/23 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 Relationship Specialty Start Date End Date Shawna Mcfadden DO [address] [place] [address] PCP - General Family Medicine 04/14/22 Key Andrea NP [address] [place] [address] Referring Physician Family Medicine 08/13/23 Team Status: Inactive Member Role Status Dates Rory Driver [facility] Primary Care Provider Active Start: January 21, 2024 End: January 21, 2024 MELE Best Attending Provider Active Start: January 21, 2024 End: January 21, 2024 Team Status: Inactive Member Role Status Dates Rory Driver [facility] Primary Care Provider Active Start: March 09, 2024 End: March 09, 2024 Mio Marroquin DO Attending Provider Active S tart: March 09, 2024 End: March 09, 2024 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 Relationship Specialty Start Date End Date Shawna Mcfadden DO [address] [place] [address] PCP - General Family Medicine 04/14/22 Key Andrea NP [address] [place] [address] Referring Physician Family Medicine 08/13/23 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 Relationship Specialty Start Date End Date Shawna Mcfadden DO [address] [place] [address] PCP - General Family Medicine 04/14/22 Key Andrea, ASSOCIATE CHEMIST [address] [place] [address] Referring Physician Family Medicine 08/13/23 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 Relationship Specialty Start Date End Date Shawna Mcfadden DO [address] [place] [address] PCP - General Family Medicine 05/02/22 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 Relationship Specialty Start Date End Date Shawna Mcfadden DO [address] [place] [address] PCP - General Family Medicine 05/02/22 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 Relationship Specialty Start Date End Date Shawna Mcfadden DO [address] [place] [address] PCP - General Family Medicine 04/14/22 Key Andrea, ASSOCIATE CHEMIST [address] [place] [address] Referring Physician Family Medicine 08/13/23 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 Relationship Specialty Start Date End Date Shawna Mcfadden DO [address] [place] [address] PCP - General Family Medicine 05/02/22 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 Relationship Specialty Start Date End Date Shawna Mcfadden DO [address] [place] [address] PCP - General Family Medicine 05/02/22 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 Relationship Specialty Start Date End Date Shawna Mcfadden DO [address] [place] [address] PCP - General Family Medicine 05/02/22 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 Relationship Specialty Start Date End Date Shawna Mcfadden DO [address] [place] [address] PCP - General Family Medicine 05/02/22 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 Relationship Specialty Start Date End Date Shawna Mcfadden DO [address] [place] [address] PCP - General Family Medicine 05/02/22 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 Relationship Specialty Start Date End Date Shawna Mcfadden DO [address] [place] [address] PCP - General Family Medicine 05/02/22 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 Relationship Specialty Start Date End Date Shawna Mcfadden DO [address] [place] [address] PCP - General Family Medicine 05/02/22 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 Relationship Specialty Start Date End Date [facility] [address] [place] PCP - General Family Medicine 10/05/23 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 Relationship Specialty Start Date End Date Shawna Mcfadden DO [address] [place] [address] PCP - General Family Medicine 04/14/22 Key Andrea ASSOCIATE CHEMIST [address] [place] [address] Referring Physician Family Medicine 08/13/23 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 Relationship Specialty Start Date End Date Bogdan Shawna, DO [address] [place] [address] PCP - General Family Medicine 04/14/22 Key Andrea, ASSOCIATE CHEMIST [address] [place] [address] Referring Physician Family Medicine 08/13/23 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 Relationship Specialty Start Date End Date Vicky Mcfaddenjack [address] [place] [address] PCP - General Family Medicine 04/14/22 Key Andrea, ASSOCIATE CHEMIST [address] [place] [address] Referring Physician Family Medicine 08/13/23 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 Relationship Specialty Start Date End Date Vicky Mcfaddenty, [address] [place] [address] PCP - General Family Medicine 04/14/22 Key Andrea, JO ANN [address] [place] [address] Referring Physician Family Medicine 08/13/23 Laila Santos DO [address] [place] [address] Referring Physician Neurology 05/10/24 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 Relationship Specialty Start Date End Date Vicky McfaddentyDO [address] [place] [address] PCP - General Family Medicine 04/14/22 Key Andrea, ASSOCIATE CHEMIST [address] [place] [address] Referring Physician Family Medicine 08/13/23 Laila Santos DO [address] [place] [address] Referring Physician Neurology 05/10/24 Team Status: Active Member Role Status Dates Rory Driver [facility] Primary Care Provider Active Start: April 04, 2024 Matt Flores DO Attending Provider Active Sta rt: April 04, 2024 Team Status: Inactive Member Role Status Dates Rory Driver [facility] Primary Care Provider Active Start: June 02, 2024 End: June 02, 2024 Jan Garg APRN Attending Provider Active Start: June 02, 2024 End: June 02, 2024 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 Relationship Specialty Start Date End Date Shawna Mcfadden DO [address] [place], [place] [id number] PCP - General Family Medicine 04/14/22 Key Andrea, ASSOCIATE CHEMIST [address] [place] [address] Referring Physician Family Medicine 08/13/23 Laila Santos DO [address] [place] [address] Referring Physician Neurology 05/10/24 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 Relationship Specialty Start Date End Date Shawna Mcfadden DO [address] [place] [address] PCP - General Family Medicine 04/14/22 Key Andrea, ASSOCIATE CHEMIST [address] [place] [address] Referring Physician Family Medicine 08/13/23 Laila Santos DO [address] [place] [address] Referring Physician Neurology 05/10/24 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 Relationship Specialty Start Date End Date Loreto Mcneal APRN - ASSOCIATE CHEMIST [address] [facility] [place] [address] PCP - General 11/11/23 Team Status: Active Member Role Status Dates Loreto Mcneal APRN ASSOCIATE CHEMIST-C Primary Care Provide r Active Team Status: Inactive Member Role Status Dates Mendez Cardoso DO Attending Provider Active S tart: July 27, 2024 End: July 27, 2024 Loreto Mcneal APRN ASSOCIATE CHEMIST-C Primary Care Provide r Active Start: July 27, 2024 End: July 27, 2024 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 Relationship Specialty Start Date End Date Shawna Mcfadden DO [address] [place] [address] PCP - General Family Medicine 04/14/22 Key Andrea, JO ANN [address] [place] [address] Referring Physician Family Medicine 08/13/23 Laila Santos DO [address] [place] [address] Referring Physician Neurology 05/10/24 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 Relationship Specialty Start Date End Date Shawna Mcfadden DO [address] [place] [address] PCP - General Family Medicine 04/14/22 Key Andrea, JO ANN [address] [place] [address] Referring Physician Family Medicine 08/13/23 Laila Santos DO [address] [place] [address] Referring Physician Neurology 05/10/24 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 Relationship Specialty Start Date End Date Bogdan Shawna, [address] [place] [address] PCP - General Family Medicine 04/14/22 Key Andrea NP [address] [place] [address] Referring Physician Family Medicine 08/13/23 Laila Santos DO [address] [place] [address] Referring Physician Neurology 05/10/24 Team Status: Inactive Member Role Status Dates Jan Garg APRN Attending Provider Active Start: August 08, 2024 End: August 08, 2024 Loreto Mcneal APRN ASSOCIATE CHEMIST-C Primary Care Provide r Active Start: August 08, 2024 End: August 08, 2024 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 Relationship Specialty Start Date End Date Vicky McfaddentyDO [address] [place] [address] PCP - General Family Medicine 04/14/22 Key Andrea, ASSOCIATE CHEMIST [address] [place] [address] Referring Physician Family Medicine 08/13/23 Laila Santos DO [address] [place] [address] Referring Physician Neurology 05/10/24 Team Status: Inactive Member Role Status Dates Mendez Cardoso DO Attending Provider Active S tart: August 10, 2024 End: August 10, 2024 Loreto Mcneal APRN ASSOCIATE CHEMIST-C Primary Care Provide r Active Start: August 10, 2024 End: August 10, 2024 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 Relationship Specialty Start Date End Date Shawna Mcfadedn DO [address] [place] [address] PCP - General Family Medicine 04/14/22 Key Andrea, JO ANN [address] [place], [place] [id number] Referring Physician Family Medicine 08/13/23 Laila Santos DO [address] [place] [address] Referring Physician Neurology 05/10/24 Mendez Cardoso DO [address] [place] [address] Otolaryngology 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 Relationship Specialty Start Date End Date EdwarShawna maloneyDO [address] [facility] [place] [address] PCP - General Family Medicine 04/14/22 Key Andrea, JO NAN [address] [place] [address] Referring Physician Family Medicine 08/13/23 Laila Santos DO [address] [place] [address] Referring Physician Neurology 05/10/24 Mendez Cardoso DO [address] [place] [address] Otolaryngology 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 Relationship Specialty Start Date End Date Shawna Mcfadden DO [address] [place] [address] PCP - General Family Medicine 04/14/22 Key Andrea, ASSOCIATE CHEMIST [address] [place] [address] Referring Physician Family Medicine 08/13/23 Laila Santos DO [address] [place] [address] Referring Physician Neurology 05/10/24 Mendez Cardoso DO [address] [facility] [place] [address] Otolaryngology 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 Relationship Specialty Start Date End Date [facility] [address] [place] PCP - General Family Medicine 10/05/23 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 Relationship Specialty Start Date End Date Shawna Mcfadden DO [address] [facility] [place] [address] PCP - General Family Medicine 04/14/22 Key Andrea, ASSOCIATE CHEMIST [address] [place] [address] Referring Physician Family Medicine 08/13/23 Laila Santos DO [address] [place] [address] Referring Physician Neurology 05/10/24 Mendez Cardoso DO [address] [place] [address] Otolaryngology 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 Relationship Specialty Start Date End Date [facility] [address] [place] [address] PCP - General Family Medicine 04/14/22 Key Andrea, ASSOCIATE CHEMIST [address] [place] [address] Referring Physician Family Medicine 08/13/23 Laila Santos DO [address] [place] [address] Referring Physician Neurology 05/10/24 Mendez Cardoso DO [address] [place] [address] Otolaryngology 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 Relationship Specialty Start Date End Date [facility] [address] [place] [address] PCP - General Family Medicine 04/14/22 Key Andrea, ASSOCIATE CHEMIST [address] [place] [address] Referring Physician Family Medicine 08/13/23 Laila Santos DO [address] [place] [address] Referring Physician Neurology 05/10/24 Mendez Cardoso DO [address] [place] [address] Otolaryngology 08/19/24 Team Status: Inactive Member Role Status Dates Loreto Mcneal APRN ASSOCIATE CHEMIST-C Primary Care Provide r Active Start: September 21, 2024 End: September 21, 2024 Mendez Cardoso DO Attending Provider Active S tart: September 21, 2024 End: September 21, 2024 Goals (unrecognized section and content) Goals [...] BE BASED ON THE PRIMARY CLINICAL RECORDS. [facility]. provides no warranty or guarantee of the accuracy or completeness of information in this document.
== END 2024-09-29 23:59 | disposition home or self-care (01) ==
LOC: HEMC 14:45
PROVIDERS: PCP Nurse Practitioner Family; Visit Provider Internal Medicine Hematology & Oncology
DX: D64.9 Anemia, unspecified (principal); D50.9 Iron deficiency anemia, unspecified; K90.9 Intestinal malabsorption, unspecified; Z15.09 Genetic susceptibility to other malignant neoplasm; K21.9 Gastro-esophageal reflux disease without esophagitis; M79.10 Myalgia, unspecified site
CPT/HCPCS: G0463

== ENCOUNTER 2024-12-01 13:14 | Outpatient (OUT) | payer OTHER, SELFPAY ==
--- OUTSIDE RECORDS SUMMARY | 2024-03-14 09:30 | XMS_ITS ---
Author Organization [facility] vices Address [address] [place], [place] [address] Care Team Providers Care Global Transportation Manager Name Role Phone Loreto Mcneal Primary Care Provider [phone] Monique Nuñez Unavailable [phone] Sol Munoz Unavailable [phone] REASON FOR VISIT Elevated HR Social History Sex Assigned At : Social History Observation Description Sex Assigned At Female Encounters Encounter Location Date Provider Diagnosis Main [address] [place], [place] [phone] 03/14/2024 Sol Munoz Plan Of Treatment Next Appt Details Provider Name:Loreto ludwig, 02/27/2025 08:45:00 AM, [address] [place] [address], [phone], Provider Name:Fara Sampson , 03/16/2025 10:45:00 AM, [address] [place] [address], [phone], Progress Notes * Karma SR ADOB: (44 yo F)Acc No.[id number]:03/14/2024 Medical Note Patient: Miryam Karma KOWALSKI Provider: Lázaro Munoz MD :1980 A ge:43 Y S ex:Female Date:03/14/2024 Address:[address] [place], [place] Pcp:Loreto Mcneal Subjective: * Chief Complaints: * 1 . Elevated HR. * Medical History: Objective: * Vitals: Assessment: Plan: * Treatment: * Billing Information: * Visit Code: * Procedure Codes: * Electronic signature of Rekha Munoz MD on 12/01/2024 at 01:17 PM EDT Sign off status: Pending * Provider: Lázaro Munoz MD Date: 0 03/14/2024 Generated for Travis shoemaker/Catherine/Sonal on: 01:17 PM EDT
--- OUTSIDE RECORDS SUMMARY | 2024-06-14 07:30 | XMS_ITS ---
Author Organization The [facility] in [place] Address [address] [place] [address] Care Team Providers Care Slotter Operator Helper Name Role Phone Villa CHERRY, Rory Primary Care Provider Unavailab Carmen Cuellar Unavailable [phone] REASON FOR VISIT MD Encounters Encounter Location Date Provider Diagnosis [facility] On[facility] [address] [place] [address] 06/14/2024 Carmen Fisher Plan Of Treatment Next Appt Details Provider Name:Carmen Fisher , 12/27/2024 01:15:00 PM, [address] [place], [address], Progress Notes * Karma WHITEHEADDOB:[birth year] (44 yo F)Acc No.[id number]:06/14/2024 UNLOCKED PROGRESS NOTE Progress Notes Patient: Karma MUNOZ Provider: Kerline Fisher M.D. :1980 A ge:43 Y S ex:Female Date:06/14/2024 Address:[address] [place] [address] Pcp:Rory Driver NP Subjective: * Chief Complaints: * 1 . MD. * Medical History: Objective: * Vitals: Assessment: Plan: * Treatment: * * Electronic signature of Jonny Fisher MD, [id number] on 12/01/2024 at 07:47 AM EDT Sign off status: Pending Visit Status: A NSPH (Voice) * Provider: Kerline Fisher M.D. Date: 0 06/14/2024 Generated for Travis shoemaker/Catherine/Sonal on: 1 07:47 AM EDT
--- OUTSIDE RECORDS SUMMARY | 2024-06-15 04:30 | XMS_ITS ---
Author Organization [facility] Address [address] [place] [address] Care Team Providers Care Systems Administrator Name Role Phone Chinyere Calix Primary Care Provider REASON FOR VISIT 3 month f/u Encounters Encounter Location Date Provider Diagnosis [facility] [address] [place] [address] 06/15/2024 Chinyere Calix Plan Of Treatment Next Appt Details Provider Name:Chinyere Kerline Yogi, 01/02/2025 04:30:00 PM, [address], [place], [address], Provider Name:Chinyere Calix, 03/27/2025 03:30:00 PM, [address], [place], [address], Progress Notes * PEE WHITEHEADDOB:[birth year] (44 yo F)Acc No.[id number]:06/15/2024 Behavioral Health Patient: Miryam PEE CROFT Appointment Provider: Precious Calix :1980 A ge:43 Y S ex:Female Date:06/15/2024 Address: [address] [place], [place] Subjective: * Chief Complaints: * 1 . 3 month f/u. * Medical History: Objective: * Vitals: Assessment: Plan: * Treatment: * Images: * Electronic signature of FAWN Acosta, CORDWAINER on 12/01/2024 at 07:47 AM EDT Sign off status: Pending * Appointment Provider: Precious Calix Date: 0 06/15/2024 Generated for Travis shoemaker/Catherine/Sonal on: 1 07:47 AM EDT
--- OUTSIDE RECORDS SUMMARY | 2024-08-25 05:30 | XMS_ITS ---
Author Organization [facility] vices Address [address] [place] [phone] Care Team Providers Care Instructor Of Sociology Name Role Phone Loreto Mcneal Primary Care Provider Monique Nuñez Unavailable [phone] Deepika Banks Unavailable [phone] REASON FOR VISIT Recall (A) 43 Social History Sex Assigned At : Social History Observation Description Sex Assigned At Female Encounters Encounter Location Date Provider Diagnosis [facility] [address] [place], [place] [phone] 08/25/2024 Deepika Banks Plan Of Treatment Next Appt Details Provider Name:Loreto ludwig, 02/27/2025 08:45:00 AM, [address] [place] [address], [phone], Provider Name:Fara Sampson , 03/16/2025 10:45:00 AM, [address] [place] [address], [phone], Progress Notes * Karma SR ADOB: (44 yo F)Acc No.[id number]:08/25/2024 Patient: Miryam Karma KOAWLSKI Provider: Ana Banks DDS :1980 A ge:43 Y S ex:Female Date:08/25/2024 Address:[address] [place], [place] Pcp:Loreto Mcneal Subjective: * Chief Complaints: * 1 . Recall (A) 43. * Medical History: Objective: * Vitals: Assessment: Plan: * Treatment: * Billing Information: * Visit Code: * Procedure Codes: * Electronic signature of Brenna Banks DDS on 12/01/2024 at 07:47 AM EDT Sign off status: Pending * Provider: Ana Banks DDS Date: 0 08/25/2024 Generated for Travis shoemaker/Catherine/Sonal on: 07:47 AM EDT
--- OUTSIDE RECORDS SUMMARY | 2024-09-13 07:00 | XMS_ITS ---
Author Organization The [facility] in [place] Address [address] [place] [address] Care Team Providers Care Bedspread Seamer Name Role Phone Villa CHERRY, Rory Primary Care Provider Unavailab Carmen Cuellar Unavailable [phone] REASON FOR VISIT MD Encounters Encounter Location Date Provider Diagnosis The [facility] [address] [place] [address] 09/13/2024 Carmen Fisher Plan Of Treatment Next Appt Details Provider Name:Carmen Fisher , 12/27/2024 01:15:00 PM, [address] [place], [address], Progress Notes * Karma WHITEHEADDOB:[birth year] (44 yo F)Acc No.[id number]:09/13/2024 UNLOCKED PROGRESS NOTE Progress Notes Patient: Karma MUNOZ Provider: Kerline Fisher M.D. :1980 A ge:43 Y S ex:Female Date:09/13/2024 Address:[address] [place] [address] Pcp:Rory Driver NP Subjective: * Chief Complaints: * 1 . MD. * Medical History: Objective: * Vitals: Assessment: Plan: * Treatment: * * Electronic signature of Jonny Fisher MD, [id number] on 12/01/2024 at 07:47 AM EDT Sign off status: Pending Visit Status: C ANC (Cancelled) * Provider: Kerline Fisher M.D. Date: 0 09/13/2024 Generated for Travis shoemaker/Catherine/Sonal on: 1 07:47 AM EDT
--- OUTSIDE RECORDS SUMMARY | 2024-09-13 07:30 | XMS_ITS ---
Author Organization The [facility] in [place] Address [address] [place] [address] Care Team Providers Care Mri Specialist Name Role Phone Villa CHERRY, Rory Primary Care Provider Unavailab Carmen Cuellar Unavailable [phone] REASON FOR VISIT MD Encounters Encounter Location Date Provider Diagnosis [facility] [address] [place] [address] 09/13/2024 Carmen Fisher Plan Of Treatment Next Appt Details Provider Name:Carmen Fisher , 12/27/2024 01:15:00 PM, [address] [place], [address], Progress Notes * Karma WHITEHEADDOB:[birth year] (44 yo F)Acc No.[id number]:09/13/2024 UNLOCKED PROGRESS NOTE Progress Notes Patient: Karma MUNOZ Provider: Kerline Fisher M.D. :1980 A ge:43 Y S ex:Female Date:09/13/2024 Address:[address] [place] [address] Pcp:Rory Driver NP Subjective: * Chief Complaints: * 1 . MD. * Medical History: Objective: * Vitals: Assessment: Plan: * Treatment: * * Electronic signature of Jonny Fisher MD, [id number] on 12/01/2024 at 07:47 AM EDT Sign off status: Pending Visit Status: C ANC (Cancelled) * Provider: Kerline Fisher M.D. Date: 0 09/13/2024 Generated for Travis shoemaker/Catherine/Sonal on: 1 07:47 AM EDT
--- OUTSIDE RECORDS SUMMARY | 2024-09-19 06:15 | XMS_ITS ---
Author Organization [facility] Servic es Address [address] [place] [address] Care Team Providers Care Audio Experience Expert Name Role Phone Calix Chinyere Primary Care Provider Encounters Encounter Location Date Provider Diagnosis [facility] [address] [place] [address] 09/19/2024 Chinyere Calix Plan Of Treatment Next Appt Details Provider Name:Chinyere Calix, 01/02/2025 04:30:00 PM, [address], [place], [address], Provider Name:Chinyere Churchill Calix, 03/27/2025 03:30:00 PM, [address], [place], [address], Progress Notes * PEE WHITEHEADDOB:[birth year] (44 yo F)Acc No.[id number]:09/19/2024 Behavioral Health Patient: Miryam PEE CROFT Appointment Provider: Precious Calix :1980 A ge:43 Y S ex:Female Date:09/19/2024 Address: [address] [place], [place] Subjective: * Chief Complaints: * * Medical History: Objective: * Vitals: Assessment: Plan: * Treatment: Care Plan: * Problems: * Images: * Electronic signature of FAWN Acosta FNP on 12/01/2024 at 07:47 AM EDT Sign off status: Pending * Appointment Provider: Precious Calix Date: 0 09/19/2024 Generated for Travis shoemaker/Catherine/Sonal on: 1 07:47 AM EDT
--- OUTSIDE RECORDS SUMMARY | 2024-09-20 07:30 | XMS_ITS ---
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 :1980 A ge:43 Y S ex:Female Date:09/20/2024 Address:[address] [place] [id number] Pcp:Rory Driver NP Subjective: * Chief Complaints: * 1 . MD. * Medical History: Objective: * Vitals: Assessment: Plan: * Treatment: * * Electronic signature of Jonny Fisher MD, [id number] on 12/01/2024 at 07:47 AM EDT Sign off status: Pending Visit Status: C ANC (Cancelled) * Provider: Kerline Fisher M.D. Date: 0 09/20/2024 Generated for Travis shoemaker/Catherine/Sonal on: 1 07:47 AM EDT
--- OUTSIDE RECORDS SUMMARY | 2024-09-27 10:45 | XMS_ITS ---
Author Organization [facility] in [place] Address [address] [place] [address] Care Team Providers Care Legal Support Assistant Name Role Phone Villa CHERRY, Rory Primary Care Provider Unavailab Carmen Cuellar Unavailable [phone] REASON FOR VISIT MD Encounters Encounter Location Date Provider Diagnosis [facility] Oncology [address] [place] [address] 09/27/2024 Carmen Fisher Plan Of Treatment Next Appt Details Provider Name:Carmen Fisher , 12/27/2024 01:15:00 PM, [address] [place], [address], Progress Notes * Karma WHITEHEADDOB:[birth year] (44 yo F)Acc No.[id number]:09/27/2024 UNLOCKED PROGRESS NOTE Progress Notes Patient: Karma MUNOZ Provider: Kerline Fisher M.D. :1980 A ge:44 Y S ex:Female Date:09/27/2024 Address:[address] [place] [address] Pcp:Rory Driver NP Subjective: * Chief Complaints: * 1 . MD. * Medical History: Objective: * Vitals: Assessment: Plan: * Treatment: * * Electronic signature of Jonny Fisher MD, [id number] on 12/01/2024 at 07:47 AM EDT Sign off status: Pending Visit Status: V OICEMSG (Voice) * Provider: Kerline Fisher M.D. Date: 0 09/27/2024 Generated for Travis shoemaker/Catherine/Sonal on: 1 07:47 AM EDT
--- OUTSIDE RECORDS SUMMARY | 2024-11-14 18:00 | XMS_ITS | Encounter Summary ---
Author Organization [facility] Address [address], [address] [place] [address] Care Team Providers Care Business Transformation Analyst Name Role Phone Loreto Mcneal APRN - JO ANN Primary Care Prov ider Reason for Referral * Imaging (Emergency) - Open Specialty Diagnoses / Procedures Referred By Contac t Referred To Contact Radiology Diagnoses Gross hematuria Renal colic Procedures CT ABDOMEN PELVIS WO CONTRAST Additional Contrast? None Georges Valencia PA-C [address] [place] [address] Phone: tel: fax: Referral ID Status Reason Start Date Expiration Date Visits Re quested Visits Authorized [id number] Open 11/14/2024 11/14/2025 1 1 Reason for Visit * Imaging (Emergency) - Open Specialty Diagnoses / Procedures Referred By Karla t Referred To Contact Radiology Diagnoses Gross hematuria Renal colic Procedures CT ABDOMEN PELVIS WO CONTRAST Additional Contrast? None Georges Valencia PA-C [address] [place] [address] Phone: tel: fax: Referral ID Status Reason Start Date Expiration Date Visits Re quested Visits Authorized [id number] Open 11/14/2024 11/14/2025 1 1 Encounter Details Date Type Department Care Team (Latest Contact Info) Description 11/14/2024 6:00 PM EDT - 11/16/2024 11:59 PM EDT Hospital Encounter [facility] CT Scan [address] [id number] Gross hematuria; Renal colic Discharge Disposition: Home or Self Care Social [...] you are drinking? Patient does not drink 4 Q3: How often do you have si x or more drinks on one occasion? Never 10/05/2023 AUDIT-C Answer Date Recorded Q1: How often do you have a drink containing alcohol? Never 11/17/2024 Q2: How many drinks containi ng alcohol do you have on a typical day when you are drinking? Patient does not drink 5 Q3: How often do you have si x or more drinks on one occasion? Never 11/17/2024 Interpersonal Safety Domain Source: IP Abuse Scr eening Answer Date Recorded Physical abuse Denies 11/17/2024 Verbal abuse Denies 11/17/2024 Emotional abuse Denies 11/17/2024 Financial abuse Denies 11/17/2024 Sexual abuse Denies 11/17/2024 Comments No Sex and Gender Information Value Date Recorded Sex Assigned at Not on file Legal Sex Female 2:04 PM EST Gender Identity Not on file Sexual Orientation Not on file documented as of this encounter Medications at Time of Discharge tamsulosin (FLOMAX) 0.4 MG capsule Take 1 capsule by mouth daily 30 capsule 11/15/2024 ibuprofen (ADVIL;MOTRIN) 600 MG tablet Take 1 tablet by mouth every 6 hours 30 tablet 11/15/2024 Tirzepatide (MOUNJARO) 2.5 MG/0.5ML SOAJ pen Inject 2.5 mg into the skin once a week fexofenadine (JONATHAN ALLERGY) 180 MG tablet Take [...] capsule Take 1 capsule by mouth daily naproxen (NAPROSYN) 500 MG tablet Take 1 tablet by mouth 2 times daily (with meals) for 5 days 10 tablet 10/05/2023 tiZANidine (ZANAFLEX) 4 MG tablet Take 2 [...] Wheezing zonisamide (ZONEGRAN) 100 MG capsule Take 1 capsule by mouth daily topiramate (TOPAMAX) 200 MG tablet Take 1 tablet by mouth daily nitrofurantoin, macrocrystal-mon ohydrate, (MACROBID) 100 MG capsule Take 1 capsule by mouth 2 times daily for 5 days 10 capsule 11/16/2024 11/21/2024 documented as of this encounter Plan of Treatment Upcoming Encounters Date Type Department Care Team (Late st Contact Info) Description 12/29/2024 11:00 AM EDT Office Visit 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 None (11/14/2024 6:22 PM EDT) Anatomical Region Laterality Modality Abdomen, Pelvis, Hip Computed To mography 11/14/2024 9:25 PM EDT Impressions 11/14/2024 9:29 PM EDT 1. 5 mm calculus in the distal right ureter with borderline right hydroureter. 2. Fatty liver. Narrative 11/14/2024 9:29 PM EDT EXAM: CT ABDOMEN AND PELVIS WITHOUT CONTRAST 11/14/2024 06:22:19 PM TECHNIQUE: CT of the abdomen and pelvis was performed without the administration of intravenous contrast. Multiplanar reformatted images are provided for review. Automated exposure control, iterative reconstruction, and/or weight-based adjustment of the mA/kV was utilized to reduce the radiation dose to as low as reasonably achievable. COMPARISON: None available. CLINICAL HISTORY: Gross hematuria; Renal colic. FINDINGS: LOWER CHEST: No acute abnormality. LIVER: Fatty liver. GALLBLADDER AND BILE DUCTS: Gallbladder is unremarkable. No biliary ductal dilatation. SPLEEN: No acute abnormality. PANCREAS: No acute abnormality. ADRENAL GLANDS: No acute abnormality. KIDNEYS, URETERS AND BLADDER: Calculus in the distal right ureter measuring 5 mm with borderline right hydroureter. Additional bilateral calyceal calculi. No perinephric or periureteral stranding. Urinary bladder is unremarkable. GI AND BOWEL: Stomach demonstrates no acute abnormality. There is no bowel obstruction. Left colonic diverticulosis. PERITONEUM AND RETROPERITONEUM: No ascites. No free air. VASCULATURE: Aorta is normal in caliber. LYMPH NODES: No lymphadenopathy. REPRODUCTIVE ORGANS: No acute abnormality. BONES AND SOFT TISSUES: No acute osseous abnormality. No focal soft tissue abnormality. Procedure Note Mickey Yates MD - 11/14/2024 EXAM: CT ABDOMEN AND PELVIS WITHOUT CONTRAST 11/14/2024 06:22:19 PM TECHNIQUE: CT of the abdomen and pelvis was performed without the administration ofintravenous contrast. Multiplanar reformatted images are provided forreview. Automated exposure control, iterative reconstruction, and/orweight-based adjustment of the mA/kV was utilized to reduce the radiation dose to as low as reasonably achievable. COMPARISON: None available. CLINICAL HISTORY: Gross hematuria; Renal colic. FINDINGS: LOWER CHEST: No acute abnormality. LIVER: Fatty liver. GALLBLADDER AND BILE DUCTS: Gallbladder is unremarkable. No biliary ductal dilatation. SPLEEN: No acute abnormality. PANCREAS: No acute abnormality. ADRENAL GLANDS: No acute abnormality. KIDNEYS, URETERS AND BLADDER: Calculus in the distal right ureter measuring 5 mm with borderline righthydroureter. Additional bilateral calyceal calculi. No perinephric orperiureteral stranding. Urinary bladder is unremarkable. GI AND BOWEL: Stomach demonstrates no acute abnormality. There is no bowel obstruction.Left colonic diverticulosis. PERITONEUM AND RETROPERITONEUM: No ascites. No free air. VASCULATURE: Aorta is normal in caliber. LYMPH NODES: No lymphadenopathy. REPRODUCTIVE ORGANS: No acute abnormality. BONES AND SOFT TISSUES: No acute osseous abnormality. No focal soft tissue abnormality. IMPRESSION: 1. 5 mm calculus in the distal right ureter with borderline righthydroureter. 2. Fatty liver. us Georges Valencia PA-C IMG CT ORDERABLES Final Re sult documented in this encounter Visit Diagnoses Diagnosis Gross hematuria Renal colic documented in this encounter Care Teams Business Transformation Analyst Relationship Specialty Start Date End Date Loreto Mcneal APRN - NP [address] [place] [address] PCP - General 11/11/23 documented as of this encounter
--- OUTSIDE RECORDS SUMMARY | 2024-11-17 05:26 | XMS_ITS | Continuity of Care Document ---
Author Organization [facility] Address [address] [place] [address] Phone Care Team Providers Care Frame Operator Name Role Phone Loreto Mcneal APRN Primary Care Provide r Mendez Ortiz DO Attending Provider Sasha Santos DO Attending Provider [phone] Jan Garg APRN Attending Provider [phone] Care Teams Patient Care Team Team Status: Active Member Role Status Dates Loreto Mcneal APRN INFRASTRUCTURE ENGINEER-Terrell Primary Care Provide r Active Visit Care Team Team Status: Inactive Member Role Status Dates Loreto Mcneal APRN INFRASTRUCTURE ENGINEER-C Primary Care Provide r Active Start: September 21, 2024 End: September 21, 2024 Mendez Oritz DO Attending Provider Active S tart: September 21, 2024 End: September 21, 2024 Visit Care Team Team Status: Inactive Member Role Status Dates Loreto Mcneal APRN INFRASTRUCTURE ENGINEER-C Primary Care Provider Active Start: November 032024 End: November 03, 2024 Sasha Santos DO Attending Provider Active Sta rt: November 03, 2024 End: November 03, 2024 Patient Care Team Team Status: Inactive Member Role Status Dates Loreto Mcneal APRN INFRASTRUCTURE ENGINEER-C Primary Care Provider Active Start: October [id number] End: November 17, 2024 Jan Garg APRN Attending Provider Active Start: November 17, 2024 End: November 17, 2024 Chief Complaint and Reason for Visit Chief Complaint Admit Date mechanical breakdown nerve stimulator Ju ly 2024 10:19am inspire appt - add per ND November 03, 2024 3:37pm 3m dyspepsia/Ibs c November 17, 2024 8:46am Reason for Visit Admit Date Hypersomnia November 03, 2024 3:37pm GERD (gastroesophageal reflux disease) S eptember 2024 8:46am Irritable bowel syndrome with constipati on November 17, 2024 8:46am Allergies, Adverse Reactions, Alerts Allergen Type Severity Reaction Last Updated Verified Status Comments cephalexin Allergy Unknown Swelling of Lip/Tongue/Throa t, hives November 17, 2024 8:58am Yes Active citalopram Allergy Unknown Palpitations, anaphylaxis November 17, 2024 8:58am Yes Active metformin Allergy Unknown hypoglycemia November 17, 2024 8:58am Yes Active bottoms out to under 40 [...] Elevated liver function tests Unknown Ac tive Hypersomnia Unknown Active Diabetes mellitus with hyperglycemia Unknown Active Shifting [...] 12:00a m July 27, 2024 11:36 am Lactobacill us Acidophilus 500 million cell capsule Active 1000 MMU CELLS PO Daily 60 October 11, 2024 12:00a m Complies with drug therapy Sumatriptan Succinate 100 mg tablet Active 100 MG PO .COMPLEX as needed for migraine headache 9 2024 11:38a m 100 mg orally at the onset of a migraine. may repeat in 2 hours. no more than than 2 per day. no more than 2 days/week PRN; Complies with drug therapy Gabapentin 300 mg capsule Active 900 MG [...] (B.Longum)) 10 million cell capsule Discont inued 75298 000 CELL PO Every morning July 27, [...] Discont inued 1 TAB PO Twice daily 14 August 10, 2024 12:00a m September 21, 2024 11:19 am Hydrocodone -Acetaminop hen 5-325 mg tablet Active 1 TAB PO Every 6 hours as needed for pain 18 09August 10, 2024 Complies with drug therapy Hydrocodone -Acetaminop hen 5-325 mg tablet Active 1 TAB PO Every 6 hours as needed for pain 12 09September 21, 2024 Complies with drug therapy Sulfamethox azole-Trime thoprim (Bactrim Ds) 800-160 mg tablet Active 1 TAB PO Twice daily 19 12September 21, 2024 12:00a m Complies with drug therapy Oxycodone-A cetaminophe n (Percocet) 5-325 mg tablet Active 1 TAB PO Every 6 hours as needed for pain 12 09September 21, 2024 Complies with drug therapy Tramadol 50 mg tablet Active 50 MG [...] drug therapy Sumatriptan Succinate 100 mg tablet Discont inued 100 MG PO Twice daily as needed for migraine headache May 20, 2023 12:00a m Julianna 2024 11:39 am Tizanidine 4 mg tablet Discont inued 4 [...] Discont inued 30 MG PO Daily June 025 10:00a m June 14, 2024 3:23p m Docusate Sodium 100 mg capsule Discont inued 100 MG PO Three times daily 90 June 02, 2024 10:01a m August 08, 2024 1:58p m Bifidobacte rium Infantis (Align (B.Infantis )) 4 mg capsule Discont inued 4 MG PO Daily June 02, 2024 10:01a m July 27, 2024 11:25 am Pantoprazol e 20 mg tablet,norris yed release (DR/EC) Active 20 MG PO Twice daily 60 30 2024 9:24am Complies with drug therapy Linaclotide (Linzess) 290 mcg capsule Active 290 MCG PO Every morning 30 2024 9:24am Complies with drug therapy Docusate Sodium 100 mg capsule Active 100 MG PO Three times daily 90 2024 9:24am Complies with drug therapy Bifidobacte rium Longum (Align (B.Longum)) 10 million cell capsule Active 56403 000 CELL PO Every morning 30 2024 9:24am Complies with drug therapy Linaclotide (Linzess) 290 mcg capsule Discont inued [...] drug therapy Docusate Sodium 100 mg capsule Discont inued 100 MG PO Three times daily 90 August 08, 2024 1:54pm [facility] 2024 9:25a m Linaclotide (Linzess) 290 mcg capsule Discont inued 290 MCG PO Every morning 30 August 08, 2024 1:55pm [facility] 2024 9:25a m Pantoprazol e 20 mg tablet,norris yed release (DR/EC) Discont inued 20 MG PO Twice daily 60 August 08, 2024 12:00a m 2024 9:25a m Famotidine 40 mg tablet Active 40 MG PO Twice daily 60 August 08, 2024 12:00a m Complies with drug therapy Bifidobacte rium Longum (Align (B.Longum)) 10 million cell capsule Discont inued 34670 000 CELL PO Every morning 30 August 08, 2024 1:57pm 2024 9:25a m Medical Equipment Device Date Implanted Device Details August 10, 2024 JULIAN: [id number] Issuing Agency: [facility] Device Id: [id number] Expiration Date: 2026-10-04 Serial Number: [id number] Implantable sleep apnoea treatment system, respiration-sensing August 10, 2024 JULIAN: [id number] Issuing Agency: [facility] Device Id: [id number] Expiration Date: 2026-12-14 Serial Number: [id number] August 10, 2024 JULIAN: [id number] Issuing Agency: [facility] Device Id: [id number] Expiration Date: 2027-01-12 Serial Number: [id number] Procedures Procedure Date Performed Status OR Inspire Hypoglossal Nerve Stim Imp (Not Applicable) September 21, 2024 12:00pm completed Relevant Diagnostic Tests and/or Laboratory Data Laboratory Results Test Collection Date/Time Result Date/Time Result Interpretation Reference Range Result Comment Performing Site Correcte d White Blood Count September 21, 2024 11:00am September 21, 2024 11:15am 8.3 10*3/uL 3.8-11.6 [facility] [id number] [address] [facility] [address] Uncorrec comfort WBC Count September 21, 2024 11:00am September 21, 2024 11:15am 8.3 10*3/uL 3.8-11.6 [facility] [id number] [address] [place] [address] Red Blood Count September 21, 2024 11:00am September 21, 2024 11:15am 5.08 10*6/uL Above high normal 3.60-5.00 [facility] [id number] [address] [place] [address] Hemoglob in September 21, 2024 11:00am September 21, 2024 11:15am 14.2 g/dL 11.8-15.4 [facility] [id number] [address] [place] [address] Hematocr it September 21, 2024 11:00am September 21, 2024 11:15am 42.1 % 34.0-46.4 [facility] [id number] [address] [place] [address] Mean Corpuscu lar Volume September 21, 2024 11:00am September 21, 2024 11:15am 83.0 fL 80-100 [facility] [id number] [address] [place] [address] Mean Corpuscu lar Hemoglob in September 21, 2024 11:00am September 21, 2024 11:15am 28.0 pg 24.7-34.3 [facility] [id number] [address] [place] [address] Mean Corpuscu lar Hemoglob in Concent September 21, 2024 11:00am September 21, 2024 11:15am 33.7 g/dL 32.0-35.0 [facility] [id number] [address] [place] [address] Red Cell Distribu tion Width September 21, 2024 11:00am September 21, 2024 11:15am 14.9 % 11.9-15.3 [facility] [id number] [address] [place] [address] Platelet Count September 21, 2024 11:00am September 21, 2024 11:15am 299 10*3/uL 150-450 [facility] [id number] [address] [place] [address] Mean Platelet Volume September 21, 2024 11:00am September 21, 2024 11:15am 8.8 fL 6.3-10.7 [facility] [id number] [address] [facility] [address] Neutroph ils (%) (Auto) September 21, 2024 11:00am September 21, 2024 11:15am 60.9 % . [facility] [id number] [address] [facility] [address] Lymphocy jarrod (%) (Auto) September 21, 2024 11:00am September 21, 2024 11:15am 30.4 % . [facility] [id number] [address] [facility] [address] Monocyte s (%) (Auto) September 21, 2024 11:00am September 21, 2024 11:15am 6.3 % . [facility] [id number] [address] [facility] [address] Eosinoph ils (%) (Auto) September 21, 2024 11:00am September 21, 2024 11:15am 1.8 % . [facility] [id number] [address] [facility] [address] Basophil s (%) (Auto) September 21, 2024 11:00am September 21, 2024 11:15am 0.6 % . [facility] [id number] [address] [facility] [address] Nucleate d RBC Relative Count (auto) September 21, 2024 11:00am September 21, 2024 11:15am 0.1 /100{WBC} 0-0.5 [facility] [id number] [address] [facility] [address] Neutroph ils # (Auto) September 21, 2024 11:00am September 21, 2024 11:15am 5.1 10*3/uL 1.8-7.7 [facility] [id number] [address] [facility] [address] Lymphocy jarrod # (Auto) September 21, 2024 11:00am September 21, 2024 11:15am 2.5 10*3/uL 1.00-4.8 [facility] [id number] [address] [facility] [address] Monocyte s # (Auto) September 21, 2024 11:00am September 21, 2024 11:15am 0.5 10*3/uL 0.0-0.8 [facility] [id number] [address] [facility] [address] Eosinoph ils # (Auto) September 21, 2024 11:00am September 21, 2024 11:15am 0.2 10*3/uL 0.0-0.45 [facility] [id number] [address] [facility] [address] Basophil s # (Auto) September 21, 2024 11:00am September 21, 2024 11:15am 0.0 10*3/uL 0.0-0.2 [facility] [id number] [address] [facility] [address] Urine HCG, Qualitat amaury September 21, 2024 11:00am September 21, 2024 11:27am Negative [facility] [id number] [address] [facility] [address] Glucose Level September 21, 2024 11:00am September 21, 2024 11:39am 87 mg/dL 70-100 ADA recommended reference rangeRandom Glucose Reference Range is dependent on time and content of last meal. Glucose of more than 200 mg/dL in a nonstressed , ambulatory subject supports the diagnosis of Diabetes Mellitus. [facility] [id number] [address] [facility] [address] Blood Urea Nitrogen September 21, 2024 11:00am September 21, 2024 11:39am 11 mg/dL 7-25 [facility] [id number] [address] [facility] [address] Creatini ne September 21, 2024 11:00am September 21, 2024 11:39am 0.60 mg/dL 0.60-1.20 [facility] [id number] [address] [facility] [address] Estimate d GFR (CKD-EPI ) September 21, 2024 11:00am September 21, 2024 11:39am > 60.0 mL/Min [facility] [id number] [address] [place] [address] Sodium Level September 21, 2024 11:00am September 21, 2024 11:39am 141 mmol/L 136-145 [facility] [id number] [address] [facility] [address] Sweta m Level September 21, 2024 11:00am September 21, 2024 11:39am 3.5 mmol/L 3.5-5.1 [facility] [id number] [address] [place] [id number] Chloride Level September 21, 2024 11:00am September 21, 2024 11:39am 105 mmol/L 98-107 [facility] [id number] [address] [place] [id number] Carbon Dioxide Level September 21, 2024 11:00am September 21, 2024 11:39am 27.4 mmol/L 21.0-31.0 [facility] [id number] [address] [place] [id number] Anion Gap September 21, 2024 11:00am September 21, 2024 11:39am 12.1 mEq/L 6.0-15.0 [facility] [id number] [address] [place] [id number] Calcium Level September 21, 2024 11:00am September 21, 2024 11:39am 9.2 mg/dL 8.6-10.3 [facility] [id number] [address] [place] [id number] Pharmacy Creatini ne Clearanc e (Chem September 21, 2024 11:00am September 21, 2024 11:39am 134.46 [facility] [id number] [address] [place] [id number] Bedside Glucose September 21, 2024 11:00am September [...] Glu2: cleaned meter Point of Care testing Vital Signs Vital Reading Result Reference Range Collection Date/Time Height 63 [in_i] September 21, 2024 11:00am Weight 97.52 kg September 21, 2024 11:00am Body Temperature 97 [degF] 97.6-99.0 September 21, 2024 12:55pm Heart Rate 97 /min 60-100 September 21, 2024 1:48pm Respiratory rate 16 /min 12-24 September 21, 2024 1:48pm Oxygen saturation by Pulse oximetry 91 % 95-100 September 21, 2024 1:48 pm BP Systolic 127 mm[Hg] 100-140 September 21, 2024 1:48pm BP Diastolic 84 mm[Hg] 60-100 September 21, 2024 1:48pm Inhaled oxygen flow rate 3 L/min Aug 12:45pm Heart Rate 78 /min 60-100 November 03, 2024 3:54pm BP Systolic 126 mm[Hg] 100-140 November 03, 2024 3:54pm BP Diastolic 74 mm[Hg] 60-100 November 03, 2024 3:54pm Height 63 [in_i] November 17, 2024 8:50am Weight 97.30 kg November 17, 2024 8:50am BMI (Body Mass Index) 38.0 kg/m2 2024 8:50am Advance Directives Advance Directive Response Recorded Date/ Time Advance Directives No August 29 3:24pm Insurance Providers Guarantor Karma Candelaria Address [address] [address] Contact Info. Home Phone: Payer Policy Id Subscriber's Name Subscriber Id Effectiv e Date Expiration Date [employer] [id number] Karma Candelaria [id number] Encounters Encounter Location(s) Arrival/Admit Date Discharge/Depart Date Provider(s) Departed Surgical Day Care -Surgery [facility] September 21, 2024 10:19am September 21, 2024 2:20pm Mendez Ortiz DO Departed Physician/Prov ider Office Visit -[facility] Neurology [place] November 03, 2024 3:37pm November 03, 2024 11:59pm Sasha Santos DO Departed Physician/Prov ider Office Visit -[facility] November 17, 2024 8:46am November 17, 2024 9:25am Precious Nye APRN Recent Diagnosis Onset Date Admit Date Hypersomnia Unknown November 03, 2 025 3:37pm GERD (gastroesophageal reflux disease) Unknown November 17, 2024 8:46am Irritable bowel syndrome with constipation Unkno wn November 17, 2024 8:46am Assessments Diagnosis Onset Date Resolution Status Admit Date Hypersomnia acute October 3:37pm GERD (gastroesophageal reflu x disease) acute November 17, 2024 8:46am Irritable bowel syndrome wit h constipation acute November 17, 2024 8:46am Plan of Treatment Future Tests Future scheduled test information is unavailable Pending Tests Pending diagnostic test information is unavailable Future Visits Future appointment information is unavailable Referrals to Other Providers Reason for Referral Referral Start Date Provider Provider Contact Information Provider Address Mendez Klein h , DO Work Phone: [phone] [place] [address] Future Procedures Procedure Name Ordered Date Scheduled Date Post Anesthesia Tracer order September 21, 2024 11: 07am September 21, 2024 11:15am Discharge Order September 21, 2024 12:25pm August 12:25pm Future Medications Future medication information is unavailable Patient Instructions Instruction Admit Date Know your Meds September 21, 2024 10:1 9am Goals Acute Goals Author Authored Date Experience reduced anxiety * Identifies current stressors * Develops effective coping behaviors * Uses support services as appropriate [facility] September 21, 2024 2:50pm Remain free of complications [facility] September 21, 2024 2:50pm Understand preop/postop care/sensations * Verbalizes understanding of surgical procedure * Verbalizes understanding of sensations following surgery * Verbalizes understanding of post-op treatment plan [facility] September 21, 2024 2:50pm Report pain at tolerable lev el * Uses pain scale appropriately * Identify options for pain control - Analgesics - Narcotics - Non-medication measures [facility] September 21, 2024 2:50pm Absence of imbalanced fluid volume s/s [facility] September 21, 2024 2:50pm Absence of physical injury [facility] September 21, 2024 2:50pm Absence of surgical site inf ection [facility] September 21, 2024 2:50pm
--- OUTSIDE RECORDS SUMMARY | 2024-11-17 21:00 | XMS_ITS | Encounter Summary ---
Author Organization [facility] Address [address], [address] [place] [address] Care Team Providers Care Managing Member Name Role Phone FredisJennyLoretofer HYLTON - JO ANN Primary Care Prov ider Reason for Visit * Reason Comments Abdominal Pain Flank Pain Pt states she had a kidney stone blasted on Thursday and has a stent place by Dr. Ceja Pt c/o increasing pain to her RLQ and right flank Encounter Details Date Type Department Care Team (Late st Contact Info) Description 11/17/2024 9:00 PM EDT - 11/17/2024 11:38 PM EDT Emergency [facility] Emergency Department [address] [place] [address] Benja Echavarria MD [facility] [place] [address] Flank pain (Primary Dx); Right lower quadrant abdominal pain Discharge Disposition: Home or Self Care Social [...] Sign Reading Time Taken Comments Blood Pressure 93/64 11/17/2024 11:29 PM EDT Pulse 76 11/17/2024 11:27 PM EDT Temperature 36.4 C (97.6 F) 11/17/2024 11:27 PM EDT Respiratory Rate 18 11/17/2024 11:27 PM EDT Oxygen Saturation 91% 11/17/2024 11:29 PM EDT Inhaled Oxygen Concentration - - Weight 104.3 kg (230 lb) 11/17/2024 8:58 PM EDT Height 160 cm (5' 3 ) 11/17/2024 8:58 PM EDT Body Mass Index 40.74 11/17/2024 8:58 PM EDT documented in this encounter Functional Status documented as of this encounter Discharge Instructions * Attachments The following attachments cannot be sent through Care Everywhere. * Abdominal Pain (Malagasy) * Flank Pain (Malagasy) documented in this encounter Medications at Time [...] tablet Take 1 tablet by mouth daily oxyCODONE-acetam inophen (PERCOCET) 5-325 MG per tabletIndication s:Flank pain Take 1 tablet by mouth every 6 hours as needed for Pain for up to 3 days. Intended supply: 3 days. Take lowest dose possible to manage pain Max Daily Amount: 4 tablets 12 tablet 11/17/2024 11/20/2024 nitrofurantoin, macrocrystal-mon ohydrate, (MACROBID) 100 MG capsule Take 1 capsule by mouth 2 times daily for 5 days 10 capsule 11/16/2024 11/21/2024 documented as of this encounter Plan of Treatment Upcoming Encounters Date Type Department Care Team (Late st Contact Info) Description 12/29/2024 11:00 AM EDT Office Visit [facility] Part of [address] [place] [address] [phone] Yudi Gomez, UPHOLSTERED GOODS CRAFTER - LYRIC WRITER [address] [place] [address] [address] [place] [address] 6[address] KUB documented as of this encounter Procedures Procedure Name Priority Date/Time Associated Diagnosis Comments CT ABDOMEN PELVIS W IV CONTRAST STAT 11/17/2024 10:05 PM EDT XR WRIST RIGHT (MIN 3 VIEWS) STAT 11/17/2024 10:02 PM EDT MICROSCOPIC URINALYSIS Routine 11/17/2024 9:50 PM EDT , URINE STAT 11/17/2024 9:50 PM EDT URINALYSIS STAT 11/17/2024 9:50 PM EDT CBC WITH AUTO DIFFERENTIAL STAT 11/17/2024 9:35 PM EDT LIPASE Add-On 11/17/2024 9:35 PM EDT HEPATIC FUNCTION PANEL Add-On 11/17/2024 9:35 PM EDT BASIC METABOLIC PANEL STAT 11/17/2024 9:35 PM EDT documented in this encounter Results * CT ABDOMEN PELVIS W IV CONTRAST Additional Contrast? None (11/17/2024 10:05 PM EDT) Anatomical Region Laterality Modality Abdomen, Pelvis, Hip Computed To mography 11/17/2024 10:5 5 PM EDT Impressions 11/17/2024 10:59 PM EDT 1. No acute findings in the abdomen or pelvis. 2. Right urinary tract stent in place. No stones along the pathway of either ureter; no hydronephrosis. Contrast Dosage Narrative 11/17/2024 10:59 PM EDT EXAM: CT ABDOMEN AND PELVIS WITH CONTRAST 11/17/2024 10:05:30 PM TECHNIQUE: CT of the abdomen and pelvis was performed with the administration of intravenous contrast (75ml isovue 370). Multiplanar reformatted images are provided for review. Automated exposure control, iterative reconstruction, and/or weight-based adjustment of the mA/kV was utilized to reduce the radiation dose to as low as reasonably achievable. COMPARISON: CT Abdomen Pelvis 11/14/2024; CT Abdomen Pelvis 10/07/2023. CLINICAL HISTORY: Abdominal pain. FINDINGS: LOWER CHEST: Mild left basilar atelectasis. LIVER: The liver is unremarkable. GALLBLADDER AND BILE DUCTS: Gallbladder has been resected. No biliary ductal dilatation. SPLEEN: No acute abnormality. PANCREAS: No acute abnormality. ADRENAL GLANDS: No acute abnormality. KIDNEYS, URETERS AND BLADDER: Right urinary tract stent is in place. Negative for hydronephrosis. The previously noted stone in the distal right ureter is no longer seen. No stones along the pathway of either ureter. Urinary bladder is unremarkable. GI AND BOWEL: Stomach demonstrates no acute abnormality. There is no bowel obstruction. PERITONEUM AND RETROPERITONEUM: No ascites. No free air. VASCULATURE: Aorta is normal in caliber. LYMPH NODES: Multiple small retroperitoneal lymph nodes. REPRODUCTIVE ORGANS: No acute abnormality. BONES AND SOFT TISSUES: No acute osseous abnormality. No focal soft tissue abnormality. Procedure Note Janeth Hathaway MD - 11/17/2024 EXAM: CT ABDOMEN AND PELVIS WITH CONTRAST 11/17/2024 10:05:30 PM TECHNIQUE: CT of the abdomen and pelvis was performed with the administration ofintravenous contrast (75ml isovue 370). Multiplanar reformatted images areprovided for review. Automated exposure control, iterative reconstruction,and/or weight-based adjustment of the mA/kV was utilized to reduce the radiation dose to as low asreasonably achievable. COMPARISON: CT Abdomen Pelvis 11/14/2024; CT Abdomen Pelvis 10/07/2023. CLINICAL HISTORY: Abdominal pain. FINDINGS: LOWER CHEST: Mild left basilar atelectasis. LIVER: The liver is unremarkable. GALLBLADDER AND BILE DUCTS: Gallbladder has been resected. No biliary ductal dilatation. SPLEEN: No acute abnormality. PANCREAS: No acute abnormality. ADRENAL GLANDS: No acute abnormality. KIDNEYS, URETERS AND BLADDER: Right urinary tract stent is in place. Negative for hydronephrosis. Thepreviously noted stone in the distal right ureter is no longer seen. Nostones along the pathway of either ureter. Urinary bladder isunremarkable. GI AND BOWEL: Stomach demonstrates no acute abnormality. There is no bowel obstruction. PERITONEUM AND RETROPERITONEUM: No ascites. No free air. VASCULATURE: Aorta is normal in caliber. LYMPH NODES: Multiple small retroperitoneal lymph nodes. REPRODUCTIVE ORGANS: No acute abnormality. BONES AND SOFT TISSUES: No acute osseous abnormality. No focal soft tissue abnormality. IMPRESSION: 1. No acute findings in the abdomen or pelvis. 2. Right urinary tract stent in place. No stones along the pathway ofeither ureter; no hydronephrosis. Contrast Dosage us Benja Echavarria MD IMG CT ORDERABLES Final Result * XR WRIST RIGHT (MIN 3 VIEWS) (11/17/2024 10:02 PM EDT) Anatomical Region Laterality Modality Forearm, Wrist, Hand Computed Ra diography 11/17/2024 10:3 5 PM EDT Impressions 11/17/2024 10:39 PM EDT Small focus of lucency and surrounding punctate areas of increased density projecting along the proximal pole the scaphoid bone which could be due to prior trauma or postop changes but is indeterminate. Recommend orthopedic follow-up Mild widening of the scapholunate space suggestive of ligamentous instability with no obvious acute fracture. Recommend follow-up. 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 Narrative 11/17/2024 10:39 PM EDT EXAMINATION: 3 XRAY VIEWS OF THE RIGHT WRIST 11/17/2024 10:02 pm COMPARISON: None HISTORY: ORDERING SYSTEM PROVIDED HISTORY: Increased pain TECHNOLOGIST PROVIDED HISTORY: Increased pain FINDINGS: There is mild narrowing of the radiocarpal joint. The visualized distal radius and ulna are intact. There is mild widening of the scapholunate space. The bones are osteopenic. There is an ill-defined small focus of lucency with surrounding punctate areas of increased density along the proximal pole of the scaphoid bone which is very ill-defined. There is mild soft tissue swelling around the wrist. Procedure Note Mark Lopez MD - 11/17/2024 EXAMINATION: 3 XRAY VIEWS OF THE RIGHT WRIST 11/17/2024 10:02 pm COMPARISON: None HISTORY: ORDERING SYSTEM PROVIDED HISTORY: Increased pain TECHNOLOGIST PROVIDED HISTORY: Increased pain FINDINGS: There is mild narrowing of the radiocarpal joint. The visualized distal radius and ulna are intact. There is mild widening of the scapholunate space. The bones are osteopenic. There is an ill-defined small focusof lucency with surrounding punctate areas of increased density along the proximal pole of the scaphoid bone which is very ill-defined. There ismild soft tissue swelling around the wrist. IMPRESSION: Small focus of lucency and surrounding punctate areas of increaseddensity projecting along the proximal pole the scaphoid bone which could be dueto prior trauma or postop changes but is indeterminate. Recommendorthopedic follow-up Mild widening of the scapholunate space suggestive of ligamentousinstability with no obvious acute fracture. Recommend follow-up. 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 Benja Echavarria MD IMG DIAGNOSTIC IMAGING ORDERABLE S Final Result * (ABNORMAL) Microscopic Urinalysis (11/17/2024 9:50 PM EDT) WBC, UA 5 TO 10 0 - 5 /HPF 11/17/2024 9:50 PM EDT [facility] RBC, UA GREATER THAN 100 0 - 2 /HPF 11/17/2024 9:50 PM EDT [facility] Epithelial Cells, UA 0 TO 2 0 - 25 /HPF 11/17/2024 9:50 PM EDT [facility] Bacteria, UA 3+(A) None 11/17/2024 9:50 PM EDT [facility] 11/17/2024 9:50 PM EDT 11/17/2024 10:40 PM EDT Benja Echavarria MD URINE ORDERABLES Final Result [facility] [address] [phone] * Urine Preg (Lab) (11/17/2024 9:50 PM EDT) , Urine NEGATIVE NEGATIVE 11/18/19 9:50 PM EDT [facility] Comment: Specimens with hCG levels near the threshold of the test (25 mIU/mL) may give a negative or indeterminate result. In such cases, another test should be performed with a new specimen in 48-72 hours. If early is suspected clinically in this setting, correlation with quantitative serum b-hCG level is suggested. Urine (Urine) 11/17/2024 9:5 0 PM EDT 11/17/2024 10:40 PM EDT us Benja Echavarria MD URINE ORDERABLES Final Result [facility] [address] [phone] * (ABNORMAL) Urinalysis (11/17/2024 9:50 PM EDT) Color, UA Red(A) Yellow 11/17/2024 9:50 PM EDT [facility] Turbidity UA Cloudy(A) Clear 11/17/2024 9:50 PM EDT [facility] Glucose, Ur 3+(A) NEGATIVE mg/dL [facility] Bilirubin, Urine NEGATIVE NEGATIVE 11/17/2024 9:50 PM [facility] Ketones, Urine TRACE(A) NEGATIVE mg/dL 11/17/2024 9[facility] Specific [place], UA 1.020 1.010 - 1.020 11/17/2024 9:50 [facility] Urine Hgb 3+(A) NEGATIVE 11/17/2024 9:50 PM [facility] pH, Urine 5.5 5.0 - 9.0 11/17/2024 9:50 PM [facility] Protein, UA 2+(A) NEGATIVE mg/dL 11/17/2024 9:50 PM [facility] Urobilinogen, Urine Normal 0.0 - 1.0 EU/dL 11/17/2024 9:50 PM [facility] Nitrite, Urine POSITIVE(A) NEGATIVE 11/17/2024 9:50 PM [facility] Leukocyte Esterase, Urine SMALL(A) NEGATIVE 11/17/2024 9:50 PM [facility] Comment Results may be affected due to urine color interference . 11/17/2024 9:50 PM [facility] Urine URINE SPECIMEN / Unknown 11/17/2024 9:50 PM EDT 11/17/2024 10:40 PM EDT us Benja Echavarria MD URINE ORDERABLES Final Result Performing Organization Address City/[facility]/ZIP Co de Phone Number [facility] [address] [place] [address] * Lipase (11/17/2024 9:35 PM EDT) Lipase 25 13 - 60 U/L 11/17/2024 9:35 PM EDT [facility] Blood BLOOD SPECIMEN / Unknown 11/17/2024 9:35 PM EDT 11/17/2024 11:12 PM EDT Benja Echavarria MD CHEMISTRY ORDERABLES Final Resul t Performing Organization Address [facility] Co de Phone Number [facility] [address] [place] [address] * (ABNORMAL) Hepatic Function Panel (11/17/2024 9:35 PM EDT) Albumin 3.9 3.5 - 5.2 g/dL 11/17/2024 9:35 PM EDT [facility] Alkaline Phosphatase 101 35 - 104 U/L 11/17/2024 9:35 PM EDT [facility] ALT 51(H) 10 - 35 U/L 11/17/2024 9:35 PM EDT [facility] AST 32 10 - 35 U/L 11/17/2024 9:35 PM EDT [facility] Total Bilirubin <0.2 0.00 - 1.20 mg/dL 11/17/2024 9:35 PM EDT [facility] Bilirubin, Direct <0.2 0.00 - 0.30 mg/dL 11/17/2024 9:35 PM EDT [facility] Bilirubin, Indirect Can not be calculated 0.0 - 1.0 mg/dL 11/17/2024 9:35 PM EDT [facility] Total Protein 6.9 6.6 - 8.7 g/dL 11/17/2024 9:35 PM EDT [facility] Albumin/Globuli n Ratio 1.3 1.0 - 2.5 11/17/2024 9:35 PM EDT [facility] Blood BLOOD SPECIMEN / Unknown 11/17/2024 9:35 PM EDT 11/17/2024 11:12 PM EDT us Benja Echavarria MD CHEMISTRY ORDERABLES Final Resul t [facility] [address] [phone] * (ABNORMAL) BMP (11/17/2024 9:35 PM EDT) Sodium 141 136 - 145 mmol/L 11/17/2024 9:35 PM T [facility] Potassium 3.7 3.7 - 5.3 mmol/L 11/17/2024 9:35 PM T [facility] Chloride 106 98 - 107 mmol/L 11/17/2024 9:35 PM T [facility] CO2 23 20 - 31 mmol/L 11/17/2024 9:35 PM [facility] Anion Gap 12 9 - 16 mmol/L 11/17/2024 9:35 PM [facility] Glucose 118(H) 74 - 99 mg/dL 11/17/2024 9:35 PM T [facility] BUN 15 6 - 20 mg/dL 11/17/2024 9:35 PM T [facility] Creatinine 0.7 0.50 - 0.90 mg/dL 11/17/2024 9:35 PM T [facility] Est, Glom Filt Rate >90 >60 mL/min/1.7 3m2 11/17/2024 9:35 PM T [facility] Comment: These results are not intended for use in patients <18 years of age. eGFR results are calculated without a race factor using the 2021 CKD-EPI equation. Careful clinical correlation is recommended, particularly when comparing to results calculated using previous equations. The CKD-EPI equation is less accurate in patients with extremes of muscle mass, extra-renal metabolism of creatine, excessive creatine ingestion, or following therapy that affects renal tubular secretion. BUN/Creatinine Ratio 21(H) 9 - 20 11/17/2024 9:35 PM EDT [facility] Calcium 8.8 8.6 - 10.4 mg/dL 11/17/2024 9:35 PM EDT [facility] Blood BLOOD SPECIMEN / Unknown 11/17/2024 9:35 PM EDT 11/17/2024 9:38 PM EDT us Benja Echavarria MD CHEMISTRY ORDERABLES Final Resul t [facility] [address] [phone] * (ABNORMAL) CBC with Auto Differential (11/17/2024 9:35 PM EDT) WBC 14.1(H) 3.5 - 11.3 k/uL 11/17/2024 9:35 PM EDT [facility] RBC 4.46 3.95 - 5.11 m/uL 11/17/2024 9:35 PM EDT [facility] Hemoglobin 12.7 11.9 - 15.1 g/dL 11/17/2024 9:35 PM EDT [facility] Hematocrit 38.8 36.3 - 47.1 % 11/17/2024 9:35 PM EDT [facility] MCV 87.0 82.6 - 102.9 fL 11/17/2024 9:35 PM EDT [facility] MCH 28.5 25.2 - 33.5 pg 11/17/2024 9:35 PM EDT [facility] MCHC 32.7 28.4 - 34.8 g/dL 11/17/2024 9:35 PM EDT [facility] RDW 15.0(H) 11.8 - 14.4 % 11/17/2024 9:35 PM [facility] Platelets 316 138 - 453 k/uL 11/17/2024 9:35 PM [facility] MPV 10.3 8.1 - 13.5 fL 11/17/2024 9:35 PM [facility] NRBC Automated 0.0 0.0 per 100 WBC 11/17/2024 9:35 PM [facility] Neutrophils % 66(H) 36 - 65 % 11/17/2024 9:35 PM [facility] Lymphocytes % 24 24 - 43 % 11/17/2024 9:35 PM [facility] Monocytes % 5 3 - 12 % 11/17/2024 9:35 PM [facility] Eosinophils % 3 1 - 4 % 11/17/2024 9:35 PM [facility] Basophils % 1 0 - 2 % 11/17/2024 9:35 PM [facility] Immature Granulocytes % 1(H) 0 % 11/17/2024 9:35 PM [facility] Neutrophils Absolute 9.43(H) 1.50 - 8.10 k/uL 11/17/2024 9:35 PM [facility] Lymphocytes Absolute 3.36 1.10 - 3.70 k/uL 11/17/2024 9:35 PM [facility] Monocytes Absolute 0.69 0.10 - 1.20 k/uL 11/17/2024 9:35 PM [facility] Eosinophils Absolute 0.38 0.00 - 0.44 k/uL 11/17/2024 9:35 PM [facility] Basophils Absolute 0.07 0.00 - 0.20 k/uL 11/17/2024 9:35 PM [facility] Immature Granulocytes Absolute 0.13 0.00 - 0.30 k/uL 11/17/2024 9:35 PM [facility] Blood BLOOD SPECIMEN / Unknown 11/17/2024 9:35 PM EDT 11/17/2024 9:38 PM EDT us Benja Echavarria MD HEMATOLOGY ORDERABLES Final Resu lt [facility] [address] [place] [id number], [facility] [phone] documented in this encounter Visit Diagnoses Diagnosis Flank pain- Primary Abdominal pain, unspecified site Right lower quadrant abdominal pain Abdominal pain, right lower quadrant documented in this encounter Administered Medications Inactive Administered Medications - up to 3 most recent administrations Medication Order MAR Action Action Date Dose Rate Site iopamidol (ISOVUE-370) 76 % injection 75 mL 75 mL, IntraVENous, IMG ONCE PRN, 1 dose, Starting on Solange 11/17/24 at 2205, Until Solange 11/17/24 at 2205, Other Given 11/17/2024 10:06 PM EDT 75 mLs ketorolac (TORADOL) injection 15 mg 15 mg, IntraVENous, ONCE, 1 dose, On Solange 11/17/24 at 2114 Given 11/17/2024 9:41 PM EDT 15 mg ondansetron (ZOFRAN) injection 4 mg 4 mg, IntraVENous, ONCE, 1 dose, On Solange 11/17/24 at 2114 Given 11/17/2024 9:41 PM EDT 4 mg sodium chloride 0.9 % bolus 1,000 mL 1,000 mL (9.59 mL/kg), IntraVENous, at 983.6 mL/hr, Administer over 61 Minutes, ONCE, On Solange 11/17/24 at 2114, For 1 dose New Bag 11/17/2024 9:40 PM EDT 1,000 mLs 983.6 mL/hr documented in this encounter Active and Recently Administered Medications Times are shown in EDT. Scheduled Medication Order 11/15/2024 11/16/2024 11/17/2024 ketorolac (TORADOL) injection 15 mg (COMPLETED) 15 mg, IntraVENous, ONCE, 1 dose, On Solange 11/17/24 at 2114 2141 (Given - Provid er: Peg Heller RN) ondansetron (ZOFRAN) injection 4 mg (COMPLETED) 4 mg, IntraVENous, ONCE, 1 dose, On Solange 11/17/24 at 2115 2141 (Given - Provid er: Peg eHller RN) sodium chloride 0.9 % bolus 1,000 mL (COMPLETED) 1,000 mL (9.59 mL/kg), IntraVENous, at 983.6 mL/hr, Administer over 61 Minutes, ONCE, On Solange 11/17/24 at 2115, For 1 dose 2140 (New Bag - Prov ider: Peg Heller RN)2302 (Stopped - Provider: Peg Heller RN) PRN Medication Order 11/15/2024 11/16/2024 11/17/2024 iopamidol (ISOVUE-370) 76 % injection 75 mL (COMPLETED) 75 mL, IntraVENous, IMG ONCE PRN, 1 dose, Starting on Solange 11/17/24 at 2205, Until Solange 11/17/24 at 220, Other 2205 (Given - Provid er: Juan M Romano) documented in this encounter Care Teams Managing Member Relationship Specialty Start Date End Date Loreto Mcneal APRN - NP [address] [place] [address] PCP - General 11/11/23 documented as of this encounter
--- OUTSIDE RECORDS SUMMARY | 2024-11-18 09:00 | XMS_ITS | Encounter Summary ---
Author Organization [facility] Address [address], [address] [place] [address] Care Team Providers Care Barrel Rifler Name Role Phone Loreto Mcneal APRN, NP Primary Care Prov ider Reason for Visit * Reason Comments Post-Op Check Patient presents for a post op and stent pull from 11/15/2024 procedure. Patient went to ED 11/17/2024. Reports blood in urine and using depends due to blood. Denies dysuria or incontinence. Reports urinary urgency and pressure. Reports nausea. Denies vomiting, fever or chills. Encounter Details Date Type Department Care Team ([facility] st Contact Info) Description 11/18/2024 9:00 AM EDT Office Visit [facility] Part of [address] [place] [phone] Karen Cotter, BELT FIXER - ROOM SERVICE ASSOCIATE [address] [place] [address] [address] [place] [address] Renal calculus (Primary Dx) Social History Tobacco Use Types [...] Sign Reading Time Taken Comments Blood Pressure 103/52 11/18/2024 9:27 AM EDT Pulse 87 11/18/2024 9:27 AM EDT Temperature 36.5 C (97.7 F) 11/18/2024 9:27 AM EDT Respiratory Rate - - Oxygen Saturation - - Inhaled Oxygen Concentration - - Weight - - Height - - Body Mass Index - - documented in this encounter Patient Instructions * Patient Instructions* Karen Cotter, BELT FIXER - ROOM SERVICE ASSOCIATE - 11/18/2024 9:43 AM EDT You may experience waves of pain and/or nausea for the next 24-72 hrs. You may also experience burning with urination, frequency, urgency, bladder spasms, and blood in the urine. All of this should continue to improve over the next several days. The blood in the urine can last up to two weeks. 1) take ibuprofen (motrin) 600 mg (3 of the 200mg tabs) every 6 hours WITH FOOD for the next 72 hours. 2) take Flomax for the next 72 hours. 3) drink at least 80 oz fluid (water, juice, Gatorade - NOT tea, coffee, soda pop) daily Call our office [phone] or go to ER (if after normal office hours) if you develop fever, intractable vomiting, severe/intolerable pain. documented in this encounter Progress Notes * Karen Cotter APRN - CNP - 11/18/2024 9:42 AM EDT History 11/[address] us by Dr. Murray for renal calculus. CT showed small stone in the distal right ureter with associated hydroureteronephrosis. 01/2024 [facility] ER 01/08/2024 with complaints of left-sided flank pain. On radiology report there gabi 3 mm left UVJ stone with mild associated hydroureteronephrosis. She went to the ER again on 01/10/2024. She states that the morning of 01/11/2024 she is confident she passed her stone. 10/[address] showed a 5 mm distal right ureteral stone with hydroureter. There are additional stones in both kidneys, the largest measures 5 mm in the right kidney. Left TLL Today Here today for stent removal following left thulium laser lithotripsy on 11/16/2024. She tolerates removal with minimal complaints. She denies fevers. Plan You may experience waves of pain and/or nausea for the next 24-72 hrs. You may also experience burning with urination, frequency, urgency, bladder spasms, and blood in the urine. All of this should continue to improve over the next several days. The blood in the urine can last up to two weeks. 1) take ibuprofen (motrin) 600 mg (3 of the 200mg tabs) every 6 hours WITH FOOD for the next 72 hours. 2) take Flomax for the next 72 hours. 3) drink at least 80 oz fluid (water, juice, Gatorade - NOT tea, coffee, soda pop) daily Call our office [phone] or go to ER (if after normal office hours) if you develop fever, intractable vomiting, severe/intolerable pain. Follow-up in 6 weeks with a KUB prior or sooner if needed * Nieves Rich RN - 11/18/2024 9:32 AM EDT Pt had ureteral stent placed on 11/15/2024 following right thulium laser lithotripsy with right ureteral stent placement. Stent removed via string in office today without difficulty. Pt tolerated removal well. documented in this encounter Plan of Treatment Upcoming Encounters Date Type Department Care Team (Late st Contact Info) Description 12/29/2024 11:00 AM EDT Office Visit [facility] Part of [address] [place] [address] Yudi Gomez, BELT FIXER - ROOM SERVICE ASSOCIATE [address] [place] [address] [address] [place] [address] 6w KUB Scheduled Orders Name Type Priority Associated Diagnoses Orde r Schedule XR ABDOMEN (KUB) (SINGLE AP VIEW) Imaging Routine Renal calculus Expected: 12/28/2024, Expires: 11/18/2025 documented as of this encounter Visit Diagnoses Diagnosis Renal calculus- Primary Calculus of kidney documented in this encounter Care Teams Barrel Rifler Relationship Specialty Start Date End Date Loreto Mcneal APRN - PURCHASE ORDER CHECKER [address] [place] [address] PCP - General 11/11/23 documented as of this encounter
--- OUTSIDE RECORDS SUMMARY | 2024-11-23 11:00 | XMS_ITS | Encounter Summary ---
Author Organization [facility] Address [address] [place] [address] Care Team Providers Care Auto Damage Adjuster Name Role Phone Loreto Mcneal Primary Care Provider [phone] Reason for Referral * (Routine) - Pending Review Specialty Diagnoses / Procedures Referred By Contac t Referred To Contact Diagnoses Pre-op evaluation Procedures ECG 12 lead unit performed Gautam Lunsford MD [address] [place] [address] Phone: tel: fax: Referral ID Status Reason Start Date Expiration Date V isits Requested Visits Authorized [id number] Pending Review 11/23/2024 11/23/2025 1 1 Reason for Visit * Reason Comments Hyperlipidemia Obesity Diabetes Anemia Patient is here today for [facility] clearance for a breast re Follow-up Patient is a usually seen at the [facility] office.Patient states she need to have a stress test which need to be approved. Patient is unable to treadmill due to bilateral broken ankles 5 months ago Encounter Details Date Type Department Care Team (Late st Contact Info) Description 11/23/2024 11:00 AM EDT Office Visit [facility] [address] [place] [address] Gautam Lunsford MD [address] [place] [phone] Pre-op evaluation (Primary Dx); Precordial chest pain Social History Tobacco Use Types Packs/Day Years [...] Information Value Date Recorded Sex Assigned at Female 11/18/2024 3:57 PM EDT Legal Sex Female 2:34 PM EST Gender Identity Female 11/18/2024 3:57 PM EDT Sexual Orientation Heterosexual or Straight 10/31 3:57 PM EDT documented as of this encounter Last Filed Vital Signs Vital Sign Reading Time Taken Comments Blood Pressure 128/83 11/23/2024 10:58 AM EDT Pulse 83 11/23/2024 10:58 AM EDT Temperature - - Respiratory Rate - - Oxygen Saturation 96% 11/23/2024 10:58 AM EDT Inhaled Oxygen Concentration - - Weight 103 kg (226 lb) 11/23/2024 10:58 AM EDT Height 160 cm (5' 3 ) 11/23/2024 10:58 AM EDT Body Mass Index 40.03 11/23/2024 10:58 AM EDT documented in this encounter Functional Status * BP Answer Date of Assessment Author 128/83 11/23/2024 10:58 AM EDT Gayathri Shipman am, [place] * Pulse Answer Date of Assessment Author 83 11/23/2024 10:58 AM EDT Gayathri Shipman am, [place] * Patient Position Answer Date of Assessment Author Sitting 11/23/2024 10:58 AM EDT Gayathri Shipman am, MA * BP Answer Date of Assessment Author 128/83 11/23/2024 10:58 AM EDT Gayathri Shipman am, [place] * Pulse Answer Date of Assessment Author 83 11/23/2024 10:58 AM EDT Gayathri Shipman am, [place] * SpO2 Answer Date of Assessment Author 96 11/23/2024 10:58 AM EDT Gayathri Shipman am, MA * BP Location Answer Date of Assessment Author Right arm 11/23/2024 10:58 AM EDT Gayathri Shipman am, MA * Patient Position Answer Date of Assessment Author Sitting 11/23/2024 10:58 AM EDT Gayathri Shipman am, [place] documented as of this encounter Progress Notes * Gautam Lunsford MD - 11/23/2024 11:00 AM EDT Subjective Patient ID: Karma Candelaria is a 44 y.o. female who presents for Hyperlipidemia, Obesity, Diabetes, Anemia, Patient is here today for surgery clearance for a breast re, and Follow-up (Patient is ausually seen at the [facility] office.Patient states she need to have a stress test which need to be approved. Patient is unable to treadmill due to bilateral broken ankles 5 months ago). Planning to have surgery to redo Inspire and now is planning to have breast reduction surgery. Able to sweep with L arm due to broken R wrist. Able to carry groceries into the house. Is able to walk up a few stairs, limited by broken ankles. Before fall she was able to climb stairs and do housework. I had a lot of chest pains about 6 months ago and toprol helped. A few chest pains tight breathing in and out and Inpire device is loose in my chest 08/09 severity, non radiating high chest, no associated symptoms, relief spontaneous, lasts from 1 hour to in and out for days Hyperlipidemia Associated symptoms include chest pain and shortness of breath. Diabetes Hypoglycemia symptoms include confusion. Pertinent negatives for hypoglycemia include no dizziness,headaches or seizures. Associated symptoms include chest pain. Anemia Symptoms include confusion. Review of Systems Respiratory: Positive for shortness of breath. Negative for wheezing. Snores at night Cardiovascular: Positive for chest pain. Gastrointestinal: Negative for blood in stool. Genitourinary: Positive for hematuria. Kidney stone; last week had surgery and had stent placed for this Neurological: Negative for dizziness, seizures, syncope and headaches. Psychiatric/Behavioral: Positive for confusion. Objective Visit Vitals BP 128/83 (BP Location: Right arm, Patient Position: Sitting) Pulse 83 Physical Exam Vitals reviewed: brace on R wrist and ankles. Constitutional: Appearance: Normal appearance. She is obese. HENT: Head: Normocephalic and atraumatic. Comments: Scar R neck Cardiovascular: Rate and Rhythm: Normal rate and regular rhythm. No extrasystoles are present. Chest Wall: PMI is not displaced. No thrill. Pulses: Carotid pulses are 2+ on the right side and 2+ on the left side. Radial pulses are 2+ on the right side and 2+ on the left side. Heart sounds: S1 normal and S2 normal. Heart sounds not distant. No murmur heard. No friction rub. No gallop. Pulmonary: Effort: Pulmonary effort is normal. Breath sounds: Normal breath sounds. Abdominal: Palpations: Abdomen is soft. Musculoskeletal: Right lower leg: No edema. Left lower leg: No edema. Skin: General: Skin is warm and dry. Neurological: General: No focal deficit present. Mental Status: She is alert and oriented to person, place, and time. Mental status is at baseline. Psychiatric: Mood and Affect: Mood normal. Behavior: Behavior normal. Thought Content: Thought content normal. EKG reviewed by me today: Normal EKG with prolonged Qtc 483 msec Assessment/Plan Mr.s Candelaria has chest pain with typical and atypical features. Given long- standing diabetes a stress test is reasonable, however, she cannot do a treadmill stress test due to ankle orthopedic issues. Will try to schedule a lexiscan stress test. Regarding pre-operative risk prior to planned breast reduction surgery, I believe she is acceptablerisk; her EKG today is normal and she has had urologic and other orthopedic surgeries within the past 6 months without cardiovascular events. Diagnosis Plan 1. Pre-op evaluation ECG 12 lead unit performed 2. Precordial chest pain Orders Placed This Encounter Procedures ECG 12 lead unit performed This back office order was created through the Back Office Visit Navigator section. Release to Patient: Immediately Follow up in about 6 weeks (around 01/04/2025). documented in this encounter Plan of Treatment Not on file documented as of this encounter Procedures Procedure Name Priority Date/Time Associated Diagnosis Comments ECG 12 LEAD UNIT PERFORMED Routine 11/23/2024 10:52 AM EDT Pre-op evaluation documented in this encounter Results * ECG 12 lead unit performed (11/23/2024 10:52 AM EDT) us Gautam Lunsford MD ECG ORDERABLES Final Resu lt documented in this encounter Visit Diagnoses Diagnosis Pre-op evaluation- Primary Precordial chest pain Precordial pain documented in this encounter Care Teams Auto Damage Adjuster Relationship Specialty Start Date End Date Loreto Mcneal [address] PCP - General 03/30/24 documented as of this encounter
--- OUTSIDE RECORDS SUMMARY | 2024-12-01 11:00 | XMS_ITS | Encounter Summary ---
Author Organization [facility] Address [address] [facility] [place] [address] Care Team Providers Care Cleat Feeder Name Role Phone Key Andrea NEON SIGN ERECTOR Unavailable Shawna Dudley DO Primary Care Provider [phone] Sasha Santos DO Unavailable [phone] Mendez Ortiz DO Unavailable [phone] Reason for Visit * Reason Comments Diabetes Follow-up Encounter Details Date Type Department Care Team (Late st Contact Info) Description 12/01/2024 11:00 AM EDT Office Visit [facility] [address] [place] [address] Cleo Zambrano MD [address] [place] [address] Type 2 diabetes mellitus with hyperglycemia, without long-term current use of insulin (HCC) (Primary Dx); Vitamin D deficiency; Weight gain; Encounter for dietary consultation; Hyperlipemia, mixed; Diabetes mellitus with complication (HCC); Hypoglycemia Social History Tobacco Use Types Packs/Day Years [...] Sign Reading Time Taken Comments Blood Pressure 118/72 12/01/2024 10:57 AM EDT Pulse 100 12/01/2024 10:57 AM EDT Temperature - - Respiratory Rate 20 12/01/2024 10:57 AM EDT Oxygen Saturation 99% 12/01/2024 10:57 AM EDT Inhaled Oxygen Concentration - - Weight 103 kg (227 lb) 12/01/2024 10:57 AM EDT Height 160 cm (5' 3 ) 12/01/2024 10:57 AM EDT Body Mass Index 40.21 12/01/2024 10:57 AM EDT documented in this encounter Plan of Treatment Upcoming Encounters Date Type Department Care Team (Late st Contact Info) Description 04/06/2025 10:40 AM EST Office Visit [facility] [address] [place] [address] Cleo Zambrano MD [address] [place] [address] 05/31/2025 1:00 PM EDT Office Visit [facility] [address] [place] [phone] Roel Garber DO [address] [place] [address] 08/18/2025 2:00 PM EDT Office Visit [facility] [address] [place] [address] Mendez Ortiz DO [address] [place] [address] documented as of this encounter Procedures Procedure Name Priority Date/Time Associated Diagnosis Comments POCT GLYCOSYLATED HEMOGLOBIN (HGB A1C) Routine 12/01/2024 12:15 PM EDT Type 2 diabetes mellitus with hyperglycemia, without long-term current use of insulin (HCC) POCT GLUCOSE Routine 12/01/2024 12:12 PM EDT Type 2 diabetes mellitus with hyperglycemia, without long-term current use of insulin (HCC) documented in this encounter Results * POCT glycosylated hemoglobin (Hb A1C) docked device (12/01/2024 12:15 PM EDT) Hemoglobin A1C 5.9 Blood Venous blood specimen / Unknown 12/01/2024 12:15 PM EDT Cleo Zambrano MD POINT OF CARE TEST ENTER/EDIT ORDERABLES Final Result * (ABNORMAL) POCT glucose manually resulted (12/01/2024 12:12 PM EDT) Glucose Blood, POC 131 mg/dL Blood Capillary blood specimen / Unknown 12/01/2024 12:12 PM EDT Cleo Zambrano MD POINT OF CARE TEST ENTER/EDIT ORDERABLES Final Result documented in this encounter Visit Diagnoses Diagnosis Type 2 diabetes mellitus with hyperglycemia, without long-term current use of insulin (HCC)- Primary Vitamin D deficiency Weight gain Other symptoms concerning nutrition, metabolism, and development Encounter for dietary consultation Hyperlipemia, mixed Mixed hyperlipidemia Diabetes mellitus with complication (HCC) Type II or unspecified type diabetes mellitus with unspecified complication, not stated as uncontrolled Hypoglycemia Hypoglycemia, unspecified documented in this encounter Care Teams Cleat Feeder Relationship Specialty Start Date End Date Shawna Dudley DO [address] [place] [address] PCP - General Family Medicine 04/14/22 Key Andrea NP [address] [place] [address] Referring Physician Family Medicine 08/13/23 Sasha Santos DO [address] [place] [address] Referring Physician Neurology 05/10/24 Mendez Ortiz DO [address] [place] [address] Otolaryngology 08/19/24 documented as of this encounter
--- NOTE | 2024-12-01 13:14 | PM.CN ---
Consult Note: HPI Data of Consult Patient: known to practice within the last 3 years Consult date: 12/01/24 Requesting Physician: Nancy Lipscomb NP Primary Care Provider: Loreto Mcneal NP Consult Narrative Reason for consult: neck/shoulder pain Narrative: Karma Candelaria a 44 year old female presents for evaluation of cervical pain. hx of cervical radiculopathy, was receiving ESIs at prior pain management for cervical radiculopathy with minimal improvement per pt. pt engaged in direct care staffer biweekly with mild relief. has been engaged in PT, dry needling, massage extensively over the last 2 years without improvement in pain or functional ability. Today pain 6/10 aching, crunching, stabbing. currently on duloxetine, gabapentin, flexeril, diclofenac with mild relief without side effects. Pain increased with twisting her head, driving, housework, ADLs. Pain improved with lying and sitting. previously underwent cervical MRI which is consistent with degenerative changes and multilevel disc bulge with stenosis. previously underwent bilateral C4/5 C5/6 mbb #1 with >80% improvement in pain while anesthetized, preop pain up to 10/10 post op pain 1-2/10 for a few days per pt. cc:: CC: Nancy Lipscomb NP Review of Systems ROS Musculoskeletal Reports: neck pain PFSH PFSH Medical History Heartburn ?R12 - Heartburn (ICD-10) Acid reflux ?K21.9 - Gastro-esophageal reflux disease without esophagitis (ICD-10) ASD (atrial septal defect) ?Q21.10 - Atrial septal defect, unspecified (ICD-10) ADHD ?F90.9 - Attention-deficit hyperactivity disorder, unspecified type (ICD-10) Bipolar affect, depressed ?F31.30 - Bipolar disorder, current episode depressed, mild or moderate severity, unspecified (ICD-10) Anemia ?D64.9 - Anemia, unspecified (ICD-10) Low back pain ?M54.50 - Low back pain, unspecified (ICD-10) Osteoarthritis ?M19.90 - Unspecified osteoarthritis, unspecified site (ICD-10) Carpal tunnel syndrome ?G56.00 - Carpal tunnel syndrome, unspecified upper limb (ICD-10) Obesity ?E66.9 - Obesity, unspecified (ICD-10) Diabetes ?E11.9 - 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s (ICD-10) Sleep apnea ?G47.30 - Sleep apnea, unspecified (ICD-10) Asthma ?J45.909 - Unspecified asthma, uncomplicated (ICD-10) High cholesterol ?E78.00 - Pure hypercholesterolemia, unspecified (ICD-10) Surgical History History of nasal surgery ?Z98.890 - Other specified postprocedural states (ICD-10) History of ankle surgery ?Z98.890 - Other specified postprocedural states (ICD-10) History of tonsillectomy and adenoidectomy ?Z90.89 - Acquired absence of other organs (ICD-10) H/O shoulder surgery ?Z98.890 - Other specified postprocedural states (ICD-10) History of cholecystectomy ?Z90.49 - Acquired absence of other specified parts of digestive tract (ICD-10) Social History Little interest or pleasure in doing things: not at all Feeling down, depressed, or hopeless: not at all Meds Home Medications and Allergies Home Medications ?Medication ?Instructions ?Recorded ?Confirmed ?Type Bifidobacterium infantis 4 mg 4 mg PO DAILY 10/24/23 07/22/24 History capsule (Align (B.infantis)) ascorbic acid (vitamin C) 500 mg 500 mg PO BID 10/24/23 07/22/24 History tablet (Vitamin C) duloxetine 60 mg capsule,delayed 60 mg PO DAILY 10/24/23 07/22/24 History release empagliflozin 25 mg tablet 25 mg PO DAILY 10/24/23 07/22/24 History (Jardiance) fluoxetine 60 mg tablet 60 mg PO DAILY 10/24/23 07/22/24 History lamotrigine 200 mg tablet 200 mg PO DAILY 10/24/23 07/22/24 History lurasidone 120 mg tablet 120 mg PO DAILY 10/24/23 07/22/24 History multivitamin with folic acid 400 1 tab PO DAILY 10/24/23 07/22/24 History mcg tablet (Daily-Karely (with folic acid)) pioglitazone 30 mg tablet 30 mg PO DAILY 10/24/23 07/22/24 History rosuvastatin 10 mg tablet 10 mg PO DAILY 10/24/23 07/22/24 History trazodone 50 mg tablet 50 mg PO DAILY 10/24/23 07/22/24 History vitamin B complex 1 tab PO Q24H 10/24/23 07/22/24 History albuterol sulfate 0.63 mg/3 mL 0.63 mg inhalation TID PRN 11/16/23 07/22/24 History solution for nebulization bronchospasm albuterol sulfate 90 mcg/actuation 2 inh inhalation QID PRN shortness 11/16/23 07/22/24 History aerosol inhaler (Proventil HFA) of breath or wheezing biotin injectioin .every other week 11/16/23 History diclofenac sodium 75 mg 75 mg PO BID PRN pain #60 tabs 11/16/23 07/22/24 Rx tablet,delayed release fluticasone propionate 50 1 spray intranasal DAILY PRN 11/16/23 07/22/24 History mcg/actuation nasal allergy symptoms spray,suspension (24 Hour Allergy Relief) invizia 11/16/23 History docusate sodium 100 mg capsule 300 mg PO DAILY 01/11/24 07/22/24 History linaclotide 290 mcg capsule 290 mcg PO DAILY 01/11/24 07/22/24 History (Linzess) cyclobenzaprine 10 mg tablet See Rx Instructions .Route 03/10/24 07/22/24 Rx .COMPLEX PRN muscle spasm #90 tabs cholecalciferol (vitamin D3) 125 125 mcg PO DAILY 03/31/24 07/22/24 History mcg (5,000 unit) tablet (Vitamin D3) fexofenadine 180 mg tablet 180 mg PO DAILY 03/31/24 07/22/24 History lisdexamfetamine 70 mg capsule 70 mg PO QAM 03/31/24 07/22/24 History (Vyvanse) metoprolol succinate 25 mg 25 mg PO DAILY 03/31/24 07/22/24 History tablet,extended release 24 hr ondansetron 4 mg disintegrating 4 mg PO Q6H PRN nausea and 03/31/24 07/22/24 Rx tablet vomiting #12 tabs tirzepatide 2.5 mg/0.5 mL 2.5 mg subcut QWEEK 06/27/24 07/22/24 History subcutaneous pen injector (Se) gabapentin 300 mg capsule See Rx Instructions .Route .COMPLEX 07/22/24 07/22/24 History cyclobenzaprine 10 mg tablet 10 mg PO TID PRN muscle spasm #90 11/10/24 Rx tabs diclofenac sodium 75 mg 75 mg PO BID PRN pain #60 tabs 11/10/24 Rx tablet,delayed release cyclobenzaprine 10 mg tablet 10 mg PO QID PRN muscle spasm #120 12/01/24 Rx tabs Allergies Allergy/AdvReac Type Severity Reaction Status Date / Time cephalexin (From Keflex) Allergy Intermediate Rash Verified 08/08/24 21:08 citalopram (From Celexa) Allergy Intermediate Rash Verified 08/08/24 21:08 metformin Allergy Intermediate Nausea Verified 08/08/24 21:08 Exam Constitutional Documenting provider has reviewed patient's vital signs: yes Common normals: no apparent distress, oriented x3, healthy appearing, alert and well nourished General appearance: cooperative HENMT Common normals: normocephalic, hearing grossly normal bilaterally and moist oral mucous membranes Head and scalp: normocephalic Eye Common normals: PERRL Pupil: PERRL Neck & C-Spine Common normals: full ROM General: normal visual inspection Cervical spine: cervical ROM abnormal, pain with cervical ROM and cervical spine tenderness C4, C5 and C6 Other: negative spurlings strength 5/5 in BUE facet loading positive C3-6 Chest Common normals: inspection of chest normal Respiratory Common normals: normal respiratory effort, no retractions and no use of accessory muscles Neuro Common normals: oriented x3 Sensorium/orientation: alert Motor exam: strength 5/5 throughout and no movement abnormalities noted Psych Common normals: mental status grossly normal, thought process normal, cooperative, affect normal, speech normal and activity/motor behavior normal Speech: normal speech Thought process: normal thought process Results Imaging cervical MRI: Attestation: I have reviewed the pertinent imaging results. Radiologist's impression: Straightening normal cervical lordosis. Vertebral body heights and facet alignments are maintained. Probable hemangioma are noted in the C6 and C7 vertebral bodies. No acute or aggressive osseous abnormality is evident. There is also probable hemangioma in the T3 vertebral body. Limited evaluation of the paravertebral soft tissues is without acute abnormality. Bilateral subcentimeter thyroid nodules are present. C2-C3: No focal disc herniation identified. No spinal canal or neural foraminal stenosis. C3-C4: No focal disc herniation identified. No spinal canal or neural foraminal stenosis. C4-C5: Minimal broad-based disc bulge without spinal canal stenosis. No neural foraminal stenosis. C5-C6: Diffuse broad-based disc bulge with a probable superimposed left paracentral disc extrusion with inferior migration. Mild to moderate spinal canal stenosis. Moderate bilateral neural foraminal stenosis, left greater than right secondary to broad-based disc bulge and facet arthropathy. C6-C7: Minimal broad-based disc bulge without spinal canal stenosis. No neural foraminal stenosis. C7-T1: No focal disc herniation identified. No spinal canal stenosis. Mild bilateral neural foraminal stenosis, right greater than left secondary to uncovertebral degeneration facet arthropathy. Additional Findings Additional findings: If on a controlled substance or opioids, I have checked an [place]AR[place] report on this patient and there are no aberrancies noted in the prescribing history.??If on a controlled substance or opioid a drug screen was completed and reviewed within the last year, and if there has not been a drug screen completed we ordered one today to monitor higher risk, state monitored pain medication use. As part of providing excellent, safe, comprehensive care, the following was completed at our patient's visit: 1. A medication reconciliation and review to ensure accurate knowledge of current/active medications, including asking our patients to inform us about any [id number] medications or herbal remedies/nutritional supplements/alternative remedies. 2. A review to specifically ensure our patients have had annual screening for screening for depression, screening for tobacco use, and screening for unhealthy alcohol use. For concerning screenings had a discussion with the patient, provided patient education, and recommended follow-up with primary care provider when appropriate. If patient noted with a risk of falling, they received education on strength, gait, and balance training to prevent future risk of falling. Portions of this note may have been carried over from the previous visit and updated as appropriate. Please note this office utilizes paper charting in addition to the electronic medical record. A list of current medications, vitals, and PMH is available there as the clinical staff outside of myself do not have access to [employer] charting during the clinic day operations. As part of providing quality comprehensive care the current medications, vitals, and PMH were reviewed in the paper chart. Assessment and Plan Assessment and Plan (1) Cervical spondylosis: Assessment and Plan: The patient has had over 3 months of moderate to severe neck pain with functional impairment and inadequate response to conservative care including NSAIDS (unless there are contraindication such as concurrent blood thinners), multiple oral or topical pain medications, and home exercise program/physical therapy.? Patient has completed >6 weeks of guided home exercise program and/or formal physical therapy program without relief of their symptoms.? I have reviewed the imaging of the cervical spine and no red flags were identified.? The imaging reveals radiographic findings consistent with cervical spondylosis The Oswestry Disability Index was completed, and the patient scored a 36%.? The patient noted the following:?? moderate to severe pain impacting ADLs and sleep We discussed the risks and benefits of the procedure with the patient, and we are NOT planning on using sedation as outlined in the guidelines from Medicare unless there is a documented reason that sedation would be strongly recommended.?? (2) Cervical radiculopathy: Plan bilateral C4-5 C5-6 facet medial branch block x2 working towards RFA for facet mediated pain secondary to cervical spondylosis continue HEP and PT as tolerated increase flexeril 10mg QID PRN pain/spasms continue gabapentin 600mg TID continue diclofenac 75mg BID prn pain, do not recommend increasing dose f/u after each injection
--- OUTSIDE RECORDS SUMMARY | 2024-12-01 13:16 | XMS_ITS | Encounter Summary ---
Author Organization [facility] tem Address [id number] [address] [place] [address] Care Team Providers Care Granite Worker Name Role Phone Services, [facility] Primary Care Provider Encounter Details Date Type Department Care Team (Late st Contact Info) Description 05/09/2022 Telephone [facility] [address] [place] [phone] Patricia Clay RN Social History Tobacco Use [...] as well as a phone number for [employer] ( ). 1540 Call was placed to patient for clarification as there is no documentation in regards to a needfor additional information for TENS unit. Patient states per her insurance, [employer], she must use [employer]. Per patient, she has made multiple calls to both this office and [employer] and nothing hasbeen done and now the order has been canceled. Patient is informed that this office has not received any requests from [employer] and that there is no documentation of [employer] contacting this office. Patient states she had definitely called this office multiple times and she states she provided Maria C Dupree with the correct phone and fax numbers for this office. Patient is again informed that this o ffice has not received any requests from [employer] in any form. She states that she didn't realize until the end of April that she had to go through [employer]. She wanted her TENS prior to upcoming surgery on and now because you guys didn't do what you were suppose to do, I'm not goingto have it before my surgery'. Patient was again informed that Maria C Dupree has not contacted this office. Network Applications Specialist offered to call Maria C Leia at the phone number provided on message. [phone] Call was placed to Maria C Dupree. At 1547 commercial underwriter spoke with Faye who was advised [...] surgery. She was asked if she wanted commercial underwriter to continue efforts to rectify the [...] fax has been received as of today. Network Applications Specialist spoke with Valarie and explained this to her. She apologized and stated that since the order was reactivated, insurance verification was needed prior to them sending the fax to this office. Valarie states that insurance verification has been received. She states she will note insurance verification and submit order and ji urgent. She states fax should be received soon. Network Applications Specialist asked Valarie to verify fax number. Valarie listed the two fax numbers that she had on file. Neither of the numbers was the correct fax number. Valarie was given the correct fax number to this office ([phone]). She apologized and read back correct fax number. * Telephone Encounter - Patrciia Clay RN - 05/09/2022 3:57 PM EST [facility] TENS order form was completed and faxed to [facility] this morning. * Telephone Encounter - Patricia Clay RN - 05/09/2022 3:57 PM EST Call received from Yaneli ([facility]). Yaneli was calling to see [...] with the correct fax for this office [phone]. * Telephone Encounter - Patricia Clay RN - 05/09/2022 3:57 PM EST Patient called today and stated [facility] is requiring a prior auth for TENS. Patient is informed that order was received, signed and faxed back to [facility] last week. She is informed that if additional information is needed she may need to reach to [facility] as they have repeatedly sent forms to theincorrect fax number despite them being provided with the correct fax number [phone]. Patient expresses her frustration with [facility] and states she will give [...] documented as of this encounter Care Teams Granite Worker Relationship Specialty Start Date End Date Services, [facility] [address] [place], [place] PCP - General Family Medicine 10/05/23 documented as of this encounter
--- OUTSIDE RECORDS SUMMARY | 2024-12-01 13:17 | XMS_ITS | Encounter Summary ---
Author Organization [employer] [facility] tem Address [id number] [address] [place] [address] Care Team Providers Care Police Chief Deputy Name Role Phone Services, [facility] Primary Care Provider Encounter Details Date Type Department Care Team (Late st Contact Info) Description 05/28/2020 Telephone [facility] [address] [place] [phone] Zelalem Pathak MD [address] Provider retired 05/31/24 [place] [address] Social History Tobacco Use Types [...] documented as of this encounter Care Teams Police Chief Deputy Relationship Specialty Start Date End Date Services, [facility] [address] [place], [place] PCP - General Family Medicine 10/05/23 documented as of this encounter
--- OUTSIDE RECORDS SUMMARY | 2024-12-01 13:17 | XMS_ITS | Encounter Summary ---
Author Organization [facility] Address [address] [place] [address] Care Team Providers Care Bi Developer Name Role Phone Key Andrea TABLE WORKER PACKAGER Unavailable Shawna Dudley DO Primary Care Provider [phone] Sasha Santos DO Unavailable [phone] Mendez Ortiz DO Unavailable [phone] Reason for Visit * Reason Comments Med Refill Encounter Details Date Type Department Care Team (Late st Contact Info) Description 05/19/2024 [facility] [address] [facility] [address] [place] [address] Archana Naylor, ASSISTANT CENTER DIRECTOR-CREDIT OR LOANS OFFICER [address] [facility] [address] [place] [address] Rash and other nonspecific skin eruption Social [...] Description 04/06/2025 10:40 AM EST [facility] [address] [place] [address] Cleo Zambrano MD [address] [place] [address] 05/31/2025 1:00 PM EDT Office Visit [facility] [address] [phone] Roel Garber DO [address] [place] [place], [place] [id number] 08/18/2025 2:00 PM EDT Office Visit [facility] [address] [place] [address] Mendez Ortiz DO [address] [place] [address] documented as of this encounter Visit Diagnoses Diagnosis Rash and other nonspecific skin eruption documented in this encounter Care Teams Bi Developer Relationship Specialty Start Date End Date Shawna Dudley DO [address] [place] [place] [address] PCP - General Family Medicine 04/14/22 Key Andrea NP [address] [place] [address] Referring Physician Family Medicine 08/13/23 Sasha Santos DO [address] [place], [place] [id number] Referring Physician Neurology 05/10/24 Mendez Ortiz DO [address] [place] [address] Otolaryngology 08/19/24 documented as of this encounter
--- OUTSIDE RECORDS SUMMARY | 2024-12-01 13:17 | XMS_ITS | Encounter Summary ---
Author Organization [facility] tem Address [facility] [place] [id number] [address] [place] [address] Care Team Providers Care Advertising Account Representative Name Role Phone Services, [facility] Primary Care Provider Encounter Details Date Type Department Care Team (Late st Contact Info) Description 04/08/2022 Telephone [facility] [address] [place] [phone] Patricia Clay RN Social History Tobacco Use [...] up with request for medical bra prescription. Interrelated Special Education Teacher spoke with Mohsen who states he [...] documented as of this encounter Care Teams Advertising Account Representative Relationship Specialty Start Date End Date [facility], [address] [place], [place] PCP - General Family Medicine 10/05/23 documented as of this encounter
--- OUTSIDE RECORDS SUMMARY | 2024-12-01 13:17 | XMS_ITS | Encounter Summary ---
Author Organization [facility] [facility] tem Address [id number] [address] [place] [address] Care Team Providers Care Forestry Technician Name Role Phone Services, [facility] Primary Care Provider Reason for Referral * Consultation (Routine) - Closed Specialty Diagnoses / Procedures Referred By Karla cuadra Referred To Contact Endocrinology, Diabetes & Metabolism Diagnoses 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, without long-term current use of insulin ([facility]) Zelalem Pathak MD Phone: tel: fax: Cleo Zambrano MD [address] [facility], [address] [address] Phone: tel: fax: Referral ID Status Reason Start Date Expiration Date V isits Requested Visits Authorized [id number] Closed Specialty Services Required 06/14/2020 06/14/2021 1 1 Encounter Details Date Type Department Care Team (Late st Contact Info) Description 06/14/2020 Orders Only [facility] [address] [place] [phone] Zelalem Pathak MD [address]. Provider retired 05/31/24 [place], [place] [phone] 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, without long-term current use of insulin ([facility]) (Primary Dx) Social History Tobacco Use Types [...] complication, without long-term current use of insulin ([facility]) 1 Occurrences starting 06/14/2020 until 12/14/2020 documented as of this encounter Visit Diagnoses Diagnosis 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, without long-term current use of insulin ([facility] Primary documented in this encounter Additional Health Concerns Assessment Noted Time PHQ-9 Depression Total Score: 0 05/03/19 21 3:00 PM EST A Body Mass Index follow-up plan has been documented for the patient 02/10/2020 2:00 PM EST documented as of this encounter Care Teams Forestry Technician Relationship Specialty Start Date End Date Services, [facility] [address] [place], [place] PCP - General Family Medicine 10/05/23 documented as of this encounter
--- OUTSIDE RECORDS SUMMARY | 2024-12-01 13:17 | XMS_ITS | Encounter Summary ---
Author Organization [facility] [employer] [facility] tem Address [id number] [address] [place] [address] Care Team Providers Care Bell Cleaner Name Role Phone Services, [facility] Primary Care Provider Reason for Visit * Reason Comments Med Refill Encounter Details Date Type Department Care Team (Late st Contact Info) Description 06/19/2020 Refill [facility] [address] [place] [phone] Zelalem Pathak MD [address] Provider retired 05/31/24 [place], [place] [id number] Social History Tobacco Use Types Packs/Day Years [...] documented as of this encounter Care Teams Bell Cleaner Relationship Specialty Start Date End Date [facility], [facility] [address] [place], [place] PCP - General Family Medicine 10/05/23 documented as of this encounter
--- OUTSIDE RECORDS SUMMARY | 2024-12-01 13:17 | XMS_ITS | Encounter Summary ---
Author Organization [facility] Address [address] [place] [address] Care Team Providers Care Lead Manufacturing Technician Name Role Phone Key Andrea HEAT TREATING OPERATOR Unavailable Shawna Dudley DO Primary Care Provider [phone] Sasha Santos DO Unavailable [phone] Mendez Ortiz DO Unavailable [phone] Encounter Details Date Type Department Care Team (Late Contact Info) Description 06/01/2024 Abstract [facility] OBK[facility]Y [address] [address] Roel Garber DO [address] [facility] [address] [place], [place] [id number] Social History Tobacco Use Types Packs/Day Years [...] Date Type Department Care Team ([facility] Contact Info) Description 04/06/2025 10:40 AM EST Office Visit [facility] [address] [place] [address] Cleo Zambrano MD [address], [address] [place] [address] 05/31/2025 1:00 PM EDT Office Visit NATALIIA BONILLA [address] [place] [address] Roel Garber DO [address] [facility] [place] [address] 08/18/2025 2:00 PM EDT Office Visit [facility] [address] [place] [address] Mendez Ortiz DO [address] [place] [address] documented as of this encounter Visit Diagnoses Not on filedocumented in this encounter Care Teams Lead Manufacturing Technician Relationship Specialty Start Date End Date Shawna Dudley DO [address] [place], [place] [address] PCP - General Family Medicine 04/14/22 Key Andrea NP [address] [place] [address] Referring Physician Family Medicine 08/13/23 Sasha Santos DO [address] [place] [address] Referring Physician Neurology 05/10/24 Mendez Ortiz DO [address] [place] [address] Otolaryngology 08/19/24 documented as of this encounter
--- OUTSIDE RECORDS SUMMARY | 2024-12-01 13:17 | XMS_ITS | Encounter Summary ---
[facility] Address [id number] [address] [place] [address] Care Team Providers Care Pharmacy Operations Specialist Name Role Phone Services, [facility] Primary Care Provider Encounter Details Date Type Department Care Team (Late st Contact Info) Description 07/13/2018 Telephone [facility] Family Medicine [address] [place] [phone] Amy Cerna LPN Social History Tobacco Use [...] as of this encounter Care Teams Pharmacy Operations Specialist Relationship Specialty Start Date End Date [facility], [facility] [address] [place], [place] PCP - General Family Medicine 10/05/23 documented as of this encounter
--- OUTSIDE RECORDS SUMMARY | 2024-12-01 13:17 | XMS_ITS | Encounter Summary ---
Author Organization [facility] tem Address [id number] [address] 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 She cannot deal with [facility] [...] documented as of this encounter Care Teams Trestle Mainternance Laborer Relationship Specialty Start Date End Date Services, [facility] [address] [place] PCP - General Family Medicine 10/05/23 documented as of this encounter
--- OUTSIDE RECORDS SUMMARY | 2024-12-01 13:17 | XMS_ITS | Encounter Summary ---
Author Organization [facility] Address [id number] [address] [place] [address] Care Team Providers Care Historical Manuscripts Curator Name Role Phone Services, [facility] Primary Care Provider Encounter Details Date Type Department Care Team (Late st Contact Info) Description 02/17/2020 Orders Only [facility] [address] [place] [phone] Zelalem Pathak MD [address] Provider retired 05/31/24 [place], [place] [phone] Social History Tobacco Use Types Packs/Day Years [...] documented as of this encounter Care Teams Historical Manuscripts Curator Relationship Specialty Start Date End Date [facility], [facility] [address] [place], [place] PCP - General Family Medicine 10/05/23 documented as of this encounter
--- OUTSIDE RECORDS SUMMARY | 2024-12-01 13:17 | XMS_ITS | Encounter Summary ---
Author Organization [facility] Address [address] [place] [address] Care Team Providers Care Foreclosure Specialist Name Role Phone Key Andrea TUBE BENDER Unavailable Shawna Dudley DO Primary Care Provider [phone] Sasha Santos DO Unavailable [phone] Mendez Ortiz DO Unavailable [phone] Encounter Details Date Type Department Care Team (Late Contact Info) Description 11/21/2024 Orders Only [facility] [address] [place] [address] Cleo Zambrano MD [address] [place] [address] 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, unspecified whether prison insulin use (HCC) (Primary Dx) Social History Tobacco Use Types [...] Department Care Team (Late Contact Info) Description 04/06/2025 10:40 AM EST Office Visit [facility] [address] [place] [address] Cleo Zambrano MD [address] [place] [address] 05/31/2025 1:00 PM EDT Office Visit NATALIIA BONILLA [address] [place] [phone] Roel Garber DO [address] [facility] [place] [address] 08/18/2025 2:00 PM EDT Office Visit [facility] [address] [place] [address] Mendez Ortiz DO [address] [place] [address] documented as of this encounter Visit Diagnoses Diagnosis 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, unspecified whether prison insulin use (HCC)- Primary documented in this encounter Care Teams Foreclosure Specialist Relationship Specialty Start Date End Date Shawna Dudley DO [address] [facility] [place] [address] PCP - General Family Medicine 04/14/22 Key Andrea, JO ANN [address] [place] [address] Referring Physician Family Medicine 08/13/23 Sasha Santos DO [address] [place] [address] Referring Physician Neurology 05/10/24 Mendze Ortiz DO [address] [place] [address] Otolaryngology 08/19/24 documented as of this encounter
--- OUTSIDE RECORDS SUMMARY | 2024-12-01 13:17 | XMS_ITS | Patient Health Record ---
Author Organization [facility] Address [address] [place] [address] Care Team Providers Care Senior Investment Analyst Name Role Phone Rory Driver NP Primary Care Provider Unavailab Luther Cuellarorva Unavailable [phone] Joy Yung Unavailable [phone] Allergies Allergen (clinical drug ingredient) Drug/Non Drug Allergy documented on EMR Reaction Allergy Type Onset Date Status citalopram CeleXA Unknown Drug Allergy Active Keflex Unknown Drug Allergy Active metformin Metformin Unknown Drug Allergy Active Results Component Value Reference Range Notes CBC AUTO DIFF (Not yet revie wed by provider) Interpretation: Performing Lab: Notes/Report: [facility] , White Blood Count 9.0 4.0-11.0 [...] Performing Lab: see note ML - [facility] LB FERRITIN (Not yet reviewed b y provider) Interpretation: Performing Lab: Notes/Report: [facility] , Ferritin 197.0 8.0-252.0 ng/mL Performing Lab: see note ML - [facility] LB VITAMIN D 25 [place] (Not yet rev iewed by provider) Interpretation: Performing Lab: Notes/Report: [facility] , Vitamin D 38.6 30-100 ng/mL Vit D sufficient >100 ng/mL Potential Toxicity 20-<30 ng/mL Vit D insufficient <20 ng/mL Vit D deficient Performing Lab: see note ML - [facility] LB CBC AUTO DIFF (Not yet revie wed by provider) Interpretation: Performing Lab: Notes/Report: [facility] , White Blood Count 10.1 4.0-11.0 [...] 3/uL Performing Lab: see note ML - [facility] LB IRON AND TIBC (Not yet revie wed by provider) Interpretation: Performing Lab: Notes/Report: [facility] , Iron 86.0 50.0-170.0 ug/dL Total Iron Binding Capacity 346.0 250.0-450.0 u g/dL Percent Iron Saturation 24.9 Performing Lab: see note ML - [facility] LB PROF CHEM 8 (BAS METB) (Not yet reviewed by provider) Interpretation: Performing Lab: Notes/Report: [facility] , Sodium 141 136-145 mmol/L Potassium 3.9 3.5-5.1 mmol/L Chloride 103 98-107 mmol/L Carbon Dioxide 27.1 21.0-32.0 mmol/L Anion Gap 14.8 Glucose 94 74-106 mg/dL Blood Urea Nitrogen 25.0 7.0-18.0 mg/dL Creatinine 0.83 0.55-1.02 mg/dL Estimated GFR ( Regina >60 >=60 mL/mi n/1.73m 2 Estimated GFR (Non- Susanne >60 >=60 mL/mi n/1.73m 2 BUN Creatinine Ratio 30.1 Calcium 8.9 8.5-10.1 mg/dL Performing Lab: see note ML - [facility] LB TSH W/ REFLEX FT4 (Not yet r eviewed by provider) Interpretation: Performing Lab: Notes/Report: [facility] , TSH W/ REFLEX FT4 1.272 0.358-3.740 uIU/mL Performing Lab: see note ML - [facility] LB Vitamin B12 (Not yet reviewe d by provider) Interpretation: Performing Lab: Notes/Report: [facility] , Vitamin B12 948 351-4917 pg/mL [address] [place], [place] [id number] Performed at: [facility] Information Systems Specialist: Harry Rodriguez PhD, Phone: [phone] Performing Lab: see note LC - [facility] LB CBC AUTO DIFF (Not yet revie wed by provider) Interpretation: Performing Lab: Notes/Report: [facility] , White Blood Count 8.7 4.0-11.0 [...] Performing Lab: see note ML - [facility] LB IRON AND TIBC (Not yet revie wed by provider) Interpretation: Performing Lab: Notes/Report: [facility] , Iron 44.0 50.0-170.0 ug/dL Total Iron Binding Capacity 260.0 250.0-450.0 u g/dL Percent Iron Saturation 16.9 Performing Lab: see note ML - [facility] LB PROF 14(COMP METB) (Not yet reviewed by provider) Interpretation: Performing Lab: Notes/Report: [facility] , Sodium 139 136-145 mmol/L Potassium 3.7 3.5-5.1 mmol/L Chloride 105 98-107 mmol/L Carbon Dioxide 25.5 21.0-32.0 mmol/L Anion Gap 12.2 Glucose 154 74-106 mg/dL Blood Urea Nitrogen 15.0 7.0-18.0 mg/dL Creatinine 0.84 0.55-1.02 mg/dL Estimated GFR ( Regina >60 >=60 mL/mi n/1.73m 2 Estimated GFR (Non- Susanne >60 >=60 mL/mi n/1.73m 2 BUN Creatinine Ratio 17.9 Calcium 8.7 8.5-10.1 mg/dL Bilirubin Total 0.3 0.2-1.0 mg/dL Aspartate Amino Transferase 38 15-37 U/L Alanine Aminotransferase 70 14-59 U/L Alkaline Phosphatase 90 46-116 U/L Total Protein 7.0 6.4-8.2 g/dL Albumin Level 3.5 3.4-5.0 g/dL Globulin 3.5 Albumin Globulin Ratio 1.0 Performing Lab: see note ML - [facility] LB Vitamin B12 (Not yet reviewe d by provider) Interpretation: Performing Lab: Notes/Report: [facility] , Vitamin B12 041 975-4639 pg/mL Information Systems Specialist: Harry Rodriguez PhD, Phone: [phone] Performed at: - [facility] [address] [id number] Performing Lab: see note LC - [facility] LB FOLATE (Not yet reviewed by provider) Interpretation: Performing Lab: Notes/Report: [facility] , Folate 44.00 8.60-58.90 ng/mL Performing Lab: see note ML - [facility] LB VITAMIN D 25 [place] (Not yet rev iewed by provider) Interpretation: Performing Lab: Notes/Report: [facility] , Vitamin D 40.8 >100 ng/mL Potential Toxicity <20 ng/mL Vit D deficient 20-<30 ng/mL Vit D insufficient 30-100 ng/mL Vit D sufficient Performing Lab: see note ML - [facility] LB VITAMIN D 25 [place] (Not yet rev iewed by provider) Interpretation: Performing Lab: Notes/Report: [facility] , Vitamin D 40.9 <20 ng/mL Vit D deficient 20-<30 ng/mL Vit D insufficient 30-100 ng/mL Vit D sufficient >100 ng/mL Potential Toxicity Performing Lab: see note ML - [facility] LB FERRITIN (Not yet reviewed b y provider) Interpretation: Performing Lab: Notes/Report: [facility] , Ferritin 622.0 8.0-252.0 ng/mL Performing Lab: see note ML - [facility] LB Vitamin B12 (Not yet reviewe d by provider) Interpretation: Performing Lab: Notes/Report: [facility] , Vitamin B12 414 802-1065 pg/mL Information Systems Specialist: Harry Rodriguez PhD, Phone: [phone] Performed at: - [facility] [address] [id number] Performing Lab: see note - [facility] LB IRON AND TIBC (Not yet revie wed by provider) Interpretation: Performing Lab: Notes/Report: [facility] , Iron 48.0 50.0-170.0 ug/dL Total Iron Binding Capacity 348.0 250.0-450.0 u g/dL Percent Iron Saturation 13.8 Performing Lab: see note ML - [facility] LB FERRITIN (Not yet reviewed b y provider) Interpretation: Performing Lab:[facility] ([facility]), [address]. [address] PH:[phone] Notes/Report: FERRITIN 195 11-307 ng/mL PERFORMED AT [place] [address], [place] [address] IRON PROFILE ([facility]) (No t yet reviewed by provider) Interpretation: Performing Lab:[facility] ([facility]), [address], [place]. [address] PH:[phone] Notes/Report: IRON 53 50-170 ug/dL IRON BINDING 374 250-425 ug/dL IRON SATURATION 14 15-50 % SATURATION PERFOR MED AT [place] [address], [place] [address] CBC AND AUTO DIFF * (Not yet reviewed by provider) Interpretation: Performing Lab:[facility] ([facility]), Critical access hospital [facility] [address] [place] [address]. [address] PH:[phone] Notes/Report: WBC COUNT 8.4 4.0-11.0 X10E9/L RBC [...] BASOPHIL 0.0 0.0-0.2 X10E9/L PERFORM ED AT [place] [address] [facility] [address] [place] [address] BMP w/GFR (Not yet reviewed by provider) Interpretation: Performing Lab:[facility] ([facility]), Critical access hospital [address] [place] [address]. [address] PH:[phone] Notes/Report: SODIUM 138 134-146 mmol/L POTASSIUM 4.2 3.5-5.0 mmol/L CHLORIDE 106 98-109 mmol/L CARBON DIOXIDE 22 22-32 mmol/L ANION GAP 10 5-15 mmol/L BLOOD UREA NITROGEN 18 5-23 mg/dL CREATININE 0.70 0.40-1.00 mg/dL METHOD TRACE ABLE TO IDMS STANDARD GLUCOSE 89 65-99 mg/dL CALCIUM 8.9 8.5-10.5 mg/dL eGFR (CKD-EPI) NON-RACE DEPENDENT >90 >59 ml/min/1.73sq.m CKD-EPI 1 equation that does not use a race coefficient. PERFORMED AT [facility] [address],[place] [address] Reported eGFR is based on the Vitamin B12 (Not yet reviewe d by provider) Interpretation: Performing Lab: Notes/Report: [facility] , Vitamin B12 908 024-4401 pg/mL Performed at: [facility] Information Systems Specialist: Harry Rodriguez PhD, Phone: [phone] [address] [place], [place] [id number] Performing Lab: see note - [facility] LB PROF CHEM 8 (BAS METB) (Not yet reviewed by provider) Interpretation: Performing Lab: Notes/Report: [facility] , Sodium 142 136-145 mmol/L Potassium 3.3 3.5-5.1 mmol/L Chloride 102 98-107 mmol/L Carbon Dioxide 25.2 21.0-32.0 mmol/L Anion Gap 18.1 Glucose 120 74-106 mg/dL Blood Urea Nitrogen 18.0 7.0-18.0 mg/dL Creatinine 0.92 0.55-1.02 mg/dL Estimated GFR ( Regina >60 >=60 mL/mi n/1.73m 2 Estimated GFR (Non- Susanne >60 >=60 mL/mi n/1.73m 2 BUN Creatinine Ratio 19.6 Calcium 9.4 8.5-10.1 mg/dL Performing Lab: see note ML - [facility] LB LAB TESTING (Not yet reviewe d by provider) Interpretation: Performing Lab: Notes/Report: [id number] Ferritin [facility] , Miscellaneous Test COMMENT . Ferritin 730 [H ] ng/mL CB Performed at: [facility] Test Ordered: [id number] Ferritin Reference Range: 15-[address] [place] [id number] Information Systems Specialist: Harry Rodriguez PhD, Phone: [phone] Performing Lab: see note [facility] IRON AND TIBC (Not yet revie wed by provider) Interpretation: Performing Lab: Notes/Report: [facility] , Iron 68.0 50.0-170.0 ug/dL Total Iron Binding Capacity 307.0 250.0-450.0 u g/dL Percent Iron Saturation 22.1 Performing Lab: see note ML - [facility] LB CBC AUTO DIFF (Not yet revie wed by provider) Interpretation: Performing Lab: Notes/Report: [facility] , White Blood Count 10.9 4.0-11.0 [...] 3/uL Performing Lab: see note ML - [facility] LB VITAMIN D 25 [place] (Not yet rev iewed by provider) Interpretation: Performing Lab: Notes/Report: [facility] , Vitamin D 44.7 20-<30 ng/mL Vit D insufficient 30-100 ng/mL Vit D sufficient >100 ng/mL Potential Toxicity <20 ng/mL Vit D deficient Performing Lab: see note ML - [facility] LB FERRITIN (Not yet reviewed b y provider) Interpretation: Performing Lab: Notes/Report: [facility] , Ferritin 505.0 8.0-252.0 ng/mL Performing Lab: see note ML - [facility] LB XR ankle LT min 3V (Not yet reviewed by provider) Interpretation: Performing Lab: Notes/Report: Source Facility: [facility] [place] [address] [place] [address] XRay Report Signed Patient: PEE WHITEHEAD MR#: [id number] : 1980 Acct:[id number] Age/Sex: 43 / F ADM Date: 04/06/24 Loc: RAD Attending Dr: Joy Yung D.P.M. Ordering Physician: Joy Yung D.P.M. Date of Service: 04/06/24 Procedure(s): XR ankle LT min 3V Accession Number(s): [id number] cc: Joy Yung D.P.M.; Loreto Mcneal [place] [address] Patient Name: PEE WHITEHEAD MRN: [id number] date: 1980 Sex: F Assigned Patient Location: [facility] Current Patient Location: ED.[facility] Accession/Order Number: [id number] Exam Date: 04/06/2024 11:15 Report Date: 04/08/2024 [...] Schmidt M.D. Signed By: 04/08/24 113 DD/ 1128 TD/TT: Electrical Electronics Engineers: XR foot LT min 3V (Not yet r eviewed by provider) Interpretation: Performing Lab: Notes/Report: Source Facility: [place] [address] XRay Report Signed Patient: PEE WHITEHEAD MR#: [id number] : 1980 Acct:[id number] Age/Sex: 43 / F ADM Date: 04/06/24 Loc: RAD Attending Dr: Joy Yung D.P.M. Ordering Physician: Joy Yung D.P.M. Date of Service: 04/06/24 Procedure(s): XR foot LT min 3V Accession Number(s): [id number] cc: Joy Yung D.P.M.; Loreto Mcneal NP [place] [address] Patient Name: PEE WHITEHEAD MRN: [id number] date: 1980 Sex: F Assigned Patient Location: [facility] Current Patient Location: ED.MAIN Accession/Order Number: [id number] Exam Date: 04/06/2024 11:15 Report Date: 04/08/2024 [...] Signed By: 04/08/24 1131 DD/ 1128 TD/TT: Electrical Electronics Engineers: Reason For Referral Reason Referral to [employer] Diagnosis 1 Pain in left ankle a nd joints of left foot (M25.572) Referral Organization [facility] Referring Provider First Name Joy Referring Provider Last Name Evenschamp Referring Provider Speciality Podiatry Referred Provider Specialty Miscellmartinou s Referral Priority Routine Medications Medication SIG (Take, Route, Frequency, Duration) Notes Start Date End Date Status Jardiance Active Vyvanse Active LaMICtal Active Meloxicam 15 MG 1 tablet Orally Once a day; Duration: 30 days Unknown Latuda Active Meloxicam 15 MG 1 tablet Orally Once a day; Duration: 30 days 02/03/2023 Unknown Nexplanon Active traZODone [...] Problem Status W/U Status Risk Notes Problem Chronic pain (71072475) Other chronic pain (G89.29) Active confirmed Problem Localized, secondary osteoarthritis of the ankle and/or foot (383266236) Post-traumat ic osteoarthrit is, 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) Active confirmed Vital Signs Heart Rate 88 /min 04/06/2024 Temperature 97.5 degrees Fahrenheit 04/06/2024 Oximetry 98 % 04/06/2024 Height 63 in 04/06/2024 Encounters Encounter Location Date Provider Diagnosis [facility] [address] [place] [address] [place] [address] 04/06/2024 Joy Yung Post-traumatic osteoarthritis, left ankle and foot M19.172 ; Ingrowing nail L60.0 ; Tinea unguium B35.1 and Pain in left ankle and joints of left foot M25.572 [facility] [address] [place] [address], [place] [address] 02/22/2024 [facility] [address] [place] [address], [place] [address] 03/29/2024 [facility] [address] [place] [address], [place] [address] 06/14/2024 [facility] [address] [place] [address], [place] [address] 09/27/2024 [facility] [address] [place] [address], [place] [address] 12/22/2023 [facility] [address] [place] [address], [place] [address] 02/11/2024 [facility] Assessments Encounter Date Diagnosis (ICD Code) Assessment [...] [facility]. [facility] [...] Fisher , 12/27/2024 01:15:00 PM, [address] [place], [address], Insurance Providers Payer Name Payer Address Payer Phone Subscriber Number Group Number Insured Name Patient Relationship to Insured Coverage Start Date Coverage End Date [place] [address] [place] [facility] [place] [phone] [id number] Pee Wilson Self - patient is the [...]
--- OUTSIDE RECORDS SUMMARY | 2024-12-01 13:17 | XMS_ITS | Encounter Summary ---
Author Organization [facility] Address [address] [place] [address] Care Team Providers Care Boiler Service Technician Name Role Phone Key Andrea BAR POINTER Unavailable Shawna Dudley DO Primary Care Provider [phone] Sasha Santos DO Unavailable [phone] Mendez Ortiz DO Unavailable [phone] Encounter Details Date Type Department Care Team (Late st Contact Info) Description 06/02/2023 Orders Only [facility] [place] [facility] [address] [place] [address] Becky Silvestre LPN [address] [employer] [facility] [place] [address] [place] [address] Social History Tobacco Use Types Packs/Day [...] Office Visit [facility] [address] [place] [address] Cleo Zambrano MD [address], [address] [place] [address] 05/31/2025 1:00 PM EDT Office Visit NATALIIA BONILLA [address] [facility] [place] [address] Roel Garber DO [address] [facility] [place] [address] 08/18/2025 2:00 PM EDT Office Visit [facility] Otolaryngology [address] [place] [address] Mendez Ortiz DO [address] [place] [address] documented as of this encounter Procedures Procedure Name Priority Date/Time Associated Diagnosis Comments PAP SMEAR Routine 05/25/2023 12:00 AM EDT documented in this encounter Results * Pap Smear (05/25/2023 12:00 AM EDT) Swab Cervical swab / Unknown Roel Garber DO LAB CYTOLOGY ORDERABLES Final Re sult EXTERNAL LAB documented in this encounter Visit Diagnoses Not on filedocumented in this encounter Care Teams Boiler Service Technician Relationship Specialty Start Date End Date Shawna Dudley DO [address] [facility] [address] PCP - General Family Medicine 04/14/22 Key Andrea, JO ANN [address] [place] [address] Referring Physician Family Medicine 08/13/23 Sasha Santos DO [address] [place] [address] Referring Physician Neurology 05/10/24 Mendez Ortiz DO [address] [place] [address] Otolaryngology 08/19/24 documented as of this encounter
--- OUTSIDE RECORDS SUMMARY | 2024-12-01 13:17 | XMS_ITS | Encounter Summary ---
Author Organization [facility] Address [address] [facility], [address] [place] [address] Care Team Providers Care Community Outreach Director Name Role Phone Loreto Mcneal APRN - JO ANN Primary Care Prov ider Encounter Details Date Type Department Care Team (Latest Contact Info) Description 11/17/2024 Travel Social History Tobacco Use Types Packs/Day [...] on file documented as of this encounter Functional Status documented as of this encounter Plan of Treatment Upcoming Encounters Date Type Department Care Team (Late st Contact Info) Description 12/29/2024 11:00 AM EDT Office Visit [facility] UROLOGY Part of [address] [place] [address] Yudi Gomez, PIECE DYE WORKER - HEATING AND REFRIGERATION INSPECTOR [address] [place] [address] [address] [place], [place] [phone] 6w KUB documented as of this encounter Visit Diagnoses Not on filedocumented in this encounter Care Teams Community Outreach Director Relationship Specialty Start Date End Date Loreto Mcneal APRN - SOFTWARE QUALITY ENGINEER [address] [place] [address] PCP - General 11/11/23 documented as of this encounter
--- OUTSIDE RECORDS SUMMARY | 2024-12-01 13:17 | XMS_ITS | Encounter Summary ---
Author Organization [facility] [employer] s tem Address [facility] [id number] [address] [place] [address] Care Team Providers Care Housing Coordinator Name Role Phone Services, [facility] Primary Care Provider Encounter Details Date Type Department Care Team (Late st Contact Info) Description 05/10/2020 Telephone [facility] Physicians Family Medicine [address] [place] [address] Austin Yin CNA Social History Tobacco Use [...] documented as of this encounter Care Teams Housing Coordinator Relationship Specialty Start Date End Date Services, [facility] [address] [place], [place] PCP - General Family Medicine 10/05/23 documented as of this encounter
--- OUTSIDE RECORDS SUMMARY | 2024-12-01 13:17 | XMS_ITS | Encounter Summary ---
Author Organization [facility] [employer] [facility] Address [facility] [id number] [address] [place] [address] Care Team Providers Care Gis Developer Name Role Phone Services, [facility] Primary Care Provider Reason for Visit * Reason Onset Date Comments Med Refill 03/08/2020 Encounter Details Date Type Department Care Team (Late st Contact Info) Description 03/08/2020 Refill [facility] [address] [place] [address] mAy Cerna LPN Social History Tobacco Use Types [...] documented as of this encounter Care Teams Gis Developer Relationship Specialty Start Date End Date Services, [facility] [address] [place], [place] PCP - General Family Medicine 10/05/23 documented as of this encounter
--- OUTSIDE RECORDS SUMMARY | 2024-12-01 13:17 | XMS_ITS | Encounter Summary ---
Author Organization [facility] Address [facility] [id number] [address] [place] [address] Care Team Providers Care Educational/Development Assistant Name Role Phone Services, [facility] Primary Care Provider Encounter Details Date Type Department Care Team (Late st Contact Info) Description 06/30/2019 Telephone [facility] Physicians Family Medicine [address] [place] [phone] Amy Cerna LPN Social History Tobacco Use [...] documented as of this encounter Care Teams Educational/Development Assistant Relationship Specialty Start Date End Date Services, [facility] [address] [place] [place], [place] PCP - General Family Medicine 10/05/23 documented as of this encounter
--- OUTSIDE RECORDS SUMMARY | 2024-12-01 13:17 | XMS_ITS | Encounter Summary ---
Author Organization [facility] Address [address], [address] [place] [address] Care Team Providers Care Exchange Engineer Name Role Phone MayteLoreto schmidt CONCETTA - SAUSAGE CUTTER Primary Care Prov ider Encounter Details Date Type Department Care Team (Late Contact Info) Description 01/12/2024 Orders Only [facility] UROLOGY [address] [place] [address] Provider, MD Ana Social History [...] Department Care Team (Late Contact Info) Description 12/29/2024 11:00 AM EDT Office Visit [facility] UROLOGY [address] [place] [address] Yudi Gomez, REAL ESTATE INVESTMENT ANALYST - RETORT COOLER [address] [place] [address] 6w KUB documented as of this encounter [...] on filedocumented in this encounter Care Teams Exchange Engineer Relationship Specialty Start Date End Date Loreto Mcneal APRN - SAUSAGE CUTTER [address] [facility] [place] [address] PCP - General 11/11/23 documented as of this encounter
--- OUTSIDE RECORDS SUMMARY | 2024-12-01 13:17 | XMS_ITS | Encounter Summary ---
Author Organization [facility] [employer] s tem Address [facility] [id number] [address] [place] [address] Care Team Providers Care Pediatric Assistant Name Role Phone Services, [facility] Primary Care Provider Encounter Details Date Type Department Care Team (Late st Contact Info) Description 05/10/2020 Telephone [facility] Family Medicine [address] [place] [address] Kimberlyn Juarez CMA Social History Tobacco Use [...] Miscellaneous Notes * Telephone Encounter - Kimberlyn Jaurez CMA - 05/10/2020 2:16 PM EST Patient [...] documented as of this encounter Care Teams Pediatric Assistant Relationship Specialty Start Date End Date Services, [facility] [address] [place] PCP - General Family Medicine 10/05/23 documented as of this encounter
--- OUTSIDE RECORDS SUMMARY | 2024-12-01 13:17 | XMS_ITS | Encounter Summary ---
Author Organization [facility] tem Address [facility] [id number] [address] [place] [address] Care Team Providers Care Otr Driver Name Role Phone Services, [facility] Primary Care Provider Reason for Visit * Reason Onset Date Comments denial 09/22/2018 Encounter Details Date Type Department Care Team (Late st Contact Info) Description 09/22/[address] [facility] [address] [place] [address] Gil Alba PA [address] [facility], 2nd Floor [place], [place] [id number] denial Social History Tobacco Use Types Packs/Day [...] documented as of this encounter Care Teams Otr Driver Relationship Specialty Start Date End Date Services, [facility] [address] [place], [place] PCP - General Family Medicine 10/05/23 documented as of this encounter
--- OUTSIDE RECORDS SUMMARY | 2024-12-01 13:17 | XMS_ITS | Encounter Summary ---
Author Organization [facility] Address [facility] [place][id number] [address] 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
--- OUTSIDE RECORDS SUMMARY | 2024-12-01 13:17 | XMS_ITS | Encounter Summary ---
Author Organization [facility] Address [address] [place] [address] Care Team Providers Care Sponsorship Coordinator Name Role Phone Key Andrea ADJUSTER PIANO ACTION Unavailable Shawna Dudley DO Primary Care Provider [phone] Sasha Santos DO Unavailable [phone] Mendez Ortiz DO Unavailable [phone] Reason for Visit * Reason Onset Date Comments Med Refill 12/01/2024 Encounter Details Date Type Department Care Team (Late st Contact Info) Description 12/01/2024 Refill [facility] [address] [place] [address] Pilar Valdez LPN Type 2 diabetes mellitus with hyperglycemia, without long-term current use of insulin (HCC) Social History Tobacco Use Types Packs/Day [...] Telephone Encounter - Pilar Valdez LPN - 12/01/2024 12:20 PM EDT MEDICATION SENT TO PHARMACY. documented in this encounter Plan of Treatment Upcoming Encounters Date Type Department Care Team (Late st Contact Info) Description 04/06/2025 10:40 AM EST Office Visit [facility] [address] [place] [address] Cleo Zambrano MD [address], [address] [place] [address] 05/31/2025 1:00 PM EDT Office Visit [facility] [place] OBG[facility]on [address] [facility] [place] [address] Roel Garber DO [address] [facility] [place] [address] 08/18/2025 2:00 PM EDT Office Visit [facility]ALIIA Dan Otolaryngology [address] [place] [address] Mendez Ortiz DO [address] [place] [address] documented as of this encounter Visit Diagnoses Diagnosis Type 2 diabetes mellitus with hyperglycemia, without long-term current use of insulin (HCC) documented in this encounter Care Teams Sponsorship Coordinator Relationship Specialty Start Date End Date Shawna Dudley DO [address] [place] [address] PCP - General Family Medicine 04/14/22 Key Andrea NP [address] [place] [address] Referring Physician Family Medicine 08/13/23 Sasha Santos DO [address] [place] [address] Referring Physician Neurology 05/10/24 Mendez Ortiz DO [address] [place] [address] Otolaryngology 08/19/24 documented as of this encounter
--- OUTSIDE RECORDS SUMMARY | 2024-12-01 13:17 | XMS_ITS | Clinical Summary ---
Author Organization [facility] tem Address [facility] [id number] [address] [place] [address] Care Team Providers Care Sewer Pipe Offbearer Name Role Phone Services, [facility] Primary Care Provider Allergies Active Allergy Reactions Criticality Noted Date Comments Citalopram 09/15/2016 Cephalexin 09/15/2016 Metformin High 04/15/2022 Severe hypoglycemia Poison Devorah Extract 04/15/2022 Medications oihxhrtn-aret-ZJ-c alcium &mins (THERAGRAN-M) 9 mg iron-400 mcg tablet Take 1 tablet by mouth in the morning. Active blood-glucose meter (TRUE METRIX GLUCOSE METER) [facility] use to test BLOOD SUGAR TWICE [...] 2 diabetes mellitus without complications ([facility] [place]) Use to test BLOOD [...] (10/11/2018): Added automatically from request for surgery [id number] Lumbosacral spondylosis without myelopathy 07/22 Overview (07/22/2018): Added automatically from request for surgery [id number] PTSD (post-traumatic stress disorder) 06/16/2018 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 Cervical disc displacement 09/21/2017 Postoperative abscess 09/28/2016 Acute cholecystitis 09/15/2016 Diverticulitis Encounters Date Type Department Care Team Description 11/15/2024 Telephone [facility] [address] [place] [address] Dwayne Khoury MD 11/11/2024 Telephone [facility] [address] [facility] [address] [place] [address] Keri Glass 09/06/2024 Telephone [facility] [address] [facility] [address] [place] [address] Dwayne Khoury MD from Last 3 Months [...] 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 Not [...] Last Done Comments Diabetic Ophthalmology Exam 1980 Statin Use: Diabetic 1980 Depression Screening 1992 Adult BMI Follow [...] history exists Medical Devices Implanted Type Area Assistant Paralegal Device Identifier Shelf Expiration Date Model / Serial / Lot [place] Sut 5.5mm 2 Ft Crkscr Fbrwr Shldr 3 Pk 14.7mm Strl Ea=Bill-Only Rpl [id number] - [id number] Implanted:Qty: 1 on 05/15/2022 by Chepe Ingram MD at [facility] [place] Right: Shoulder Arthrex 05/30/2026 AR-1927 PSF-3 / / [id number] Arthreximplant System, Hand/Wrist Internal Brace Ligament Augmentation Repair Implanted:Qty: 1 on 08/18/2024 by Chepe Ingram MD at [facility] Orthopedic Implant Right: Wrist Arthrex [id number] 04/01/2029 AR-8978 -CP / / [id number] Arthrex Dx Swivelock Sl, With Forked Eyelet, 3.5 X 8.5mm Implanted:Qty: 1 on 08/18/2024 by Chepe Ingram MD at [facility] Orthopedic Implant Right: Wrist Arthrex [id number] 01/30/2028 AR-8978 P / / [id number] Arthrex Dx Swivelock Sl, With Forked Eyelet, 3.5 X 8.5mm Implanted:Qty: 1 on 08/18/2024 by Chepe Ingram MD at [facility] Orthopedic Implant Right: Wrist Arthrex [id number] 12/30/2024 AR-8978 P / / [id number] 0.062 9inch Yasmine Pin Implanted:Qty: 1 on 08/18/2024 by Chepe Ingram MD at [facility] Pin Right: Wrist Brasseler [employer] [id number] / / Explanted Type Area Assistant Paralegal Device Identifier Shelf Expiration Date Model / Serial / Lot 9 Inch 0.062 Yasmine Pin Explanted:Qty: 1 on 08/18/2024 by Chepe Ingram MD at [facility] Pin Right: Wrist Brasseler [employer] [id number] / / Procedures Procedure Name Priority [...] Most Recently Relevant to Health Maintenance Insurance [place] MEDICAID Advance Directives * Full Code (Latest Code Status on File) Date Activated Date Inactivated Comments 09/16/2016 3:19 PM 09/17/2016 8:38 PM Care Teams Sewer Pipe Offbearer Relationship Specialty Start Date End Date Services, [facility] [address] [place] PCP - General Family Medicine 10/05/23
--- OUTSIDE RECORDS SUMMARY | 2024-12-01 13:17 | XMS_ITS | Encounter Summary ---
Author Organization [facility] Sys tem Address [facility] [place]-[id number] [address] [place] [address] Care Team Providers Care Bank Secrecy Act Officer Name Role Phone Services, [facility] Primary Care Provider Encounter Details Date Type Department Care Team (Late st Contact Info) Description 06/02/2023 Orders Only [facility] On[facility] [address] [place] [address] Deepika Cox MD [address] [facility] [address] [place] [address] Social History Tobacco Use Types [...] documented as of this encounter Care Teams Bank Secrecy Act Officer Relationship Specialty Start Date End Date Services, [facility] [address] [facility] [address] [place], [place] PCP - General Family Medicine 10/05/23 documented as of this encounter
--- OUTSIDE RECORDS SUMMARY | 2024-12-01 13:17 | XMS_ITS | Encounter Summary ---
Author Organization [facility] [employer] Address [facility] [id number] [address] [place] [address] Care Team Providers Care Take Up Supervisor Name Role Phone Services, [facility] Primary Care Provider Encounter Details Date Type Department Care Team (Late st Contact Info) Description 05/02/2020 Telephone [facility] Physicians Family Medicine [address] [place] [address] Austin Yin CNA Social History Tobacco Use [...] will replace metformin rx [facility] and d/c the metformin rx * Telephone Encounter - Austin Yin CMA - 05/02/2020 4:42 PM EST Spoke with patient regarding the actos prescription. Patient has already picked up the metformin but I informed her not to take this medication and to take the actos instead. Patient verbalized understanding. Called [facility] in [place] and left message for them [...] documented as of this encounter Care Teams Take Up Supervisor Relationship Specialty Start Date End Date [facility], [facility] [address] [place], [place] PCP - General Family Medicine 10/05/23 documented as of this encounter
--- OUTSIDE RECORDS SUMMARY | 2024-12-01 13:17 | XMS_ITS | Encounter Summary ---
Author Organization [facility] Address [address] [place] [address] Care Team Providers Care Performing Arts Technicians Name Role Phone Key Andrea BOWLING BALL GRADER AND MARKER Unavailable Shawna Dudley DO Primary Care Provider [phone] Sasha Santos DO Unavailable [phone] Mendez Ortiz DO Unavailable [phone] Encounter Details Date Type Department Care Team ([facility] Contact Info) Description 12/01/2024 Bamboo flowsheet [facility] [address] [place] [address] Cleo Zambrano MD [address], [address] [place] [address] Social History Tobacco Use Types Packs/Day [...] Upcoming Encounters Date Type Department Care Team ([facility] Contact Info) Description 04/06/2025 10:40 AM EST Office Visit [facility] [address] [place] [address] Cleo Zambrano MD [address], [address] [place] [address] 05/31/2025 1:00 PM EDT Office Visit NATALIIA BONILLA [address] [place] [phone] Roel Garber DO [address] [facility] [place] [address] 08/18/2025 2:00 PM EDT Office Visit [facility] [address] [place] [address] Mendez Ortiz DO [address] [place] [address] documented as of this encounter Visit Diagnoses Not on filedocumented in this encounter Care Teams Performing Arts Technicians Relationship Specialty Start Date End Date Shawna Dudley DO [address] [place], [place] [phone] PCP - General Family Medicine 04/14/22 Key Andrea NP [address] [place] [address] Referring Physician Family Medicine 08/13/23 Sasha Santos DO [address] [place] [address] Referring Physician Neurology 05/10/24 Mendez Ortiz DO [address] [place] [address] Otolaryngology 08/19/24 documented as of this encounter
--- OUTSIDE RECORDS SUMMARY | 2024-12-01 13:17 | XMS_ITS | Encounter Summary ---
Author Organization [facility] Address [address] [place] [address] Care Team Providers Care Horticulture/Floriculture Teacher Name Role Phone Loreto Mcneal APRN - JO ANN Primary Care Prov ider Encounter Details Date Type Department Care Team (Late st Contact Info) Description 11/16/2024 Results Follow-Up [facility] UROLOGY Part of [address] [place] [address] Yudi Gomez, ROUTE DELIVERY DRIVER - BAKERY SUPERVISOR [address] [place] [address] [address] [place] [address] Social History Tobacco Use Types Packs/Day Years [...] Office Visit [facility] UROLOGY Part of [address] [place] [address] Yudi Gomez, ROUTE DELIVERY DRIVER - BAKERY SUPERVISOR [address] [place] [address] [address] [place] [address] 6w KUB documented as of this encounter Visit Diagnoses Not on filedocumented in this encounter Care Teams Horticulture/Floriculture Teacher Relationship Specialty Start Date End Date Loreto Mcneal APRN - EMAIL MARKETING PROCESSOR [address] [place] [address] PCP - General 11/11/23 documented as of this encounter
--- OUTSIDE RECORDS SUMMARY | 2024-12-01 13:17 | XMS_ITS | Encounter Summary ---
Author Organization [facility] Address [address] [facility] [place] [address] Care Team Providers Care Volunteer Coordinator Name Role Phone Key Andrea OIL EXPELLER Unavailable Shawna Dudley DO Primary Care Provider [phone] Sasha Santos DO Unavailable [phone] Mendez Ortiz DO Unavailable [phone] Encounter Details Date Type Department Care Team (Late st Contact Info) Description 11/24/2024 Telephone [facility] [address] [place] [address] Roel Garber DO [address] [facility] [place] [address] Social History Tobacco Use Types Packs/Day [...] encounter Miscellaneous Notes * Telephone Encounter - Becky JOHN Silvestre - 11/24/2024 3:24 PM EDT Patient called the office and she states that she did have a lot of hormone labs completed and thatshe would like to see a hormone Dr if we knew of any and also for her son and who would order this testing. Patient call was returned and she was advised that she would see an high climber for this and for her son she should start with PCPRosy POWELL and she states that she will Call Dr. Zambrano as she does see him already and didn't know he did this. documented in this encounter Plan of Treatment Upcoming Encounters Date Type Department Care Team (Late st Contact Info) Description 04/06/2025 10:40 AM EST Office Visit [facility] [address] [place] [address] Cleo Zambrano MD [address] [place] [address] 05/31/2025 1:00 PM EDT Office Visit [facility] [address] [facility] [place] [address] Roel Garber DO [address] [facility] [place] [address] 08/18/2025 2:00 PM EDT Office Visit [facility] [address] [place] [phone] Mendez Ortiz DO [address] [place] [address] documented as of this encounter Visit Diagnoses Not on filedocumented in this encounter Care Teams Volunteer Coordinator Relationship Specialty Start Date End Date Shawna Dudley DO [address] [place] [address] PCP - General Family Medicine 04/14/22 Key Andrea NP [address] [place] [address] Referring Physician Family Medicine 08/13/23 Sasha Santos DO [address] [place] [address] Referring Physician Neurology 05/10/24 Mendez Ortiz DO [address] [place] [address] Otolaryngology 08/19/24 documented as of this encounter
--- OUTSIDE RECORDS SUMMARY | 2024-12-01 13:17 | XMS_ITS | Encounter Summary ---
Author Organization [facility] Address [address] [place] [address] Care Team Providers Care Deputy [place] Marshal Name Role Phone Zully Key INSPECTOR TECHNICIAN Unavailable Shawna Dudley DO Primary Care Provider [phone] Sasha Santos DO Unavailable [phone] Mendez Ortiz DO Unavailable [phone] Encounter Details Date Type Department Care Team (Late st Contact Info) Description 06/07/2024 Abstract [facility] [address] [place] [address] [place] [address] Bela Ribeiro LPN Social History Tobacco [...] AM EST Office Visit [facility] [address] [place] [address] Cleo Zambrano MD [address] [place] [address] 05/31/2025 1:00 PM EDT Office Visit [facility] [address] [facility] [place] [phone] Roel Garber DO [address] [facility] [place] [address] 08/18/2025 2:00 PM EDT Office Visit [facility] [address] [place] [address] Mendez Ortiz DO [address] [place] [place] [address] documented as of this encounter Visit Diagnoses Not on filedocumented in this encounter Care Teams Deputy [place] Marshal Relationship Specialty Start Date End Date Shawna Dudley DO [address] [place] [address] PCP - General Family Medicine 04/14/22 Key Andrea NP [address] [place] [address] Referring Physician Family Medicine 08/13/23 Sasha Santos DO [address] [place], [place] [id number] Referring Physician Neurology 05/10/24 Mendez Ortiz DO [address] [place] [address] Otolaryngology 08/19/24 documented as of this encounter
--- OUTSIDE RECORDS SUMMARY | 2024-12-01 13:18 | XMS_ITS | Clinical Summary ---
Author Organization [facility] Address [address], [address] [place] [address] Care Team Providers Care Cardiopulmonary Technician And Eeg Tech Name Role Phone Loreto Mcneal APRN, NP [...] Active zonisamide (ZONEGRAN) 100 MG capsule Take 1 capsule by mouth daily Active topiramate (TOPAMAX) 200 MG tablet Take 1 tablet by mouth daily Active montelukast (SINGULAIR) 10 MG tablet Take 1 tablet by mouth nightly Active naproxen (NAPROSYN) 500 MG tablet Take 1 tablet by mouth as needed for Pain Active hydrOXYzine (ATARAX) 25 MG tablet Take 1 tablet by mouth every 4 hours as needed for Itching 30 tablet 1 8 Active ibuprofen (ADVIL;MOTRIN) 600 MG tablet Take 1 tablet by mouth 4 times daily as needed for Pain 30 tablet 1 9 Active gabapentin (NEURONTIN) 100 MG capsule Take 3 [...] every morning and two every night Active tamsulosin (FLOMAX) 0.4 MG capsule Take 1 capsule by mouth daily 30 capsule 5 Active ibuprofen (ADVIL;MOTRIN) 600 MG tablet Take 1 tablet by mouth every 6 hours 30 tablet 5 Active Tirzepatide (MOUNJARO) 2.5 MG/0.5ML SOAJ pen Inject 2.5 mg into the skin once a week Active nitrofurantoin, macrocrystal-mo nohydrate, (MACROBID) 100 MG capsule Take 1 capsule by mouth 2 times daily for 5 days 10 capsule 5 11/22/19 25 oxyCODONE-aceta minophen (PERCOCET) 5-325 MG per tabletIndicatio ns:Flank pain Take 1 tablet by mouth every 6 hours as needed for Pain for up to 3 days. Intended supply: 3 days. Take lowest dose possible to manage pain Max Daily Amount: 4 tablets 12 tablet 5 11/21/19 25 Active Problems Problem Noted Date Diagnosed Date Ureteral stone with hydronephrosis 11/15/2024 Encounters Date Type Department Care Team Description 11/18/2024 9:00 AM EDT Office Visit [facility] UROLOG[facility] Part of [address] [place] [address] Karen Cotter APRN - HILARY Renal calculus (Primary Dx) 11/17/2024 9:00 PM EDT - 11/17/2024 11:38 PM EDT Emergency [facility] Emergency Department [address] [place] [address] Benja Echavarria MD Flank pain (Primary Dx); Right lower quadrant abdominal pain Discharge Disposition: Home or Self Care 11/17/2024 Travel 11/16/2024 Results Follow-Up [facility] [address] [place] [address] Yudi Gomez APRN - CNP 11/15/2024 4:57 PM EDT - 11/15/2024 6:02 PM EDT Surgery [facility] OR [address] [place] [address] Faheem Stovall MD CYSTOSCOPY URETEROSCOPY LASER-right ureteroscopy/thulium laser lithotripsy with right ureteral stent placement/exchange 11/15/2024 4:38 PM EDT Anesthesia Event [facility] OR [address] [place] [id number] Chepe Rodriguez APRN - SORAYA 11/15/2024 2:41 PM EDT - 11/15/2024 6:36 PM EDT Hospital Encounter [facility] OR [address] [place] [address] Faheem Stovall MD Ureteral stone with hydronephrosis Discharge Disposition: Home or Self Care 11/15/2024 11:00 AM EDT - 11/15/2024 2:40 PM EDT Hospital Encounter [facility] EKG [address] [place] [address] Pre-op testing Discharge Disposition: Home or Self Care 11/15/2024 10:15 AM EDT Office Visit [facility] [address] [place] [address] Karen Cotter APRN - HILARY Ureteral stone with hydronephrosis (Primary Dx); Pre-op testing 11/15/2024 Travel 11/15/2024 Orders Only [facility] UR[facility] Part of [address] [place] [id number] Faheem Stovall MD Ureteral stone with hydronephrosis 11/15/2024 Results Follow-Up [facility] Specialty Providers on Main [place] [id number] Georges Valencia PA-C Results 11/14/2024 6:00 PM EDT - 11/16/2024 11:59 PM EDT Hospital Encounter [facility] CT Scan [address] [place] [phone] Gross hematuria; Renal colic Discharge Disposition: Home or Self Care 11/14/2024 5:59 PM EDT Hospital Encounter [facility] [address] [place] [address] Gross hematuria; Renal colic Discharge Disposition: Home or Self Care 11/14/2024 Telephone [facility] UR[facility] Part of [place] [address] [address] [place] [address] Karen Cotter, SOLE STAINER - RESIDENTIAL CONCIERGE OTHER 11/11/2024 Results Follow-Up [facility] Part of [facility] [address] [place] [address] Yudi Gomez, SOLE STAINER - RESIDENTIAL CONCIERGE 11/07/2024 4:05 PM EDT - 11/09/2024 11:59 PM EDT Hospital Encounter [facility] Radiology [address] [place] [address] Renal calculus Discharge Disposition: Home or Self Care from Last 3 Months Social History Tobacco [...] F) 11/18/2024 9:27 AM EDT Respiratory Rate 18 11/17/2024 11:27 PM EDT Oxygen Saturation 91% 11/17/2024 11:29 PM EDT Inhaled Oxygen Concentration - - Weight 104.3 kg (230 lb) 11/17/2024 8:58 PM EDT Height 160 cm (5' 3 ) 11/17/2024 8:58 PM EDT Body Mass Index 40.74 11/17/2024 8:58 PM EDT Plan of Treatment Upcoming Encounters Date Type Department Care Team (Late st Contact Info) Description 12/29/2024 11:00 AM EDT Office Visit [facility] Part of [address] [place] [address] Yudi Gomez, SOLE STAINER - RESIDENTIAL CONCIERGE [address] [place] [address] [address] [place] [address] 6w KUB Health Maintenance Due Date Last Done Comments Lipids 1990 Depression Screen 1992 Varicella vaccine (1 of 2 - 13+ 2-dose series) 1993 HIV screen 09/25/1995 Hepatitis C screen 1998 Pap smear 2001 Cervical cancer screen 2010 HPV (without or with Pap) 2010 Diabetes screen 09/25/2015 Flu vaccine (#1) 09/30/2024 12/07/2023, , 12/23/2021, Additional history exists Breast cancer screen 03/16/2025 03/16/2023, 11/08/19 22 DTaP/Tdap/Td vaccine (2 - Td or Tdap) 09/03/2031 09/02/2021, 09/02/2021 Pneumococcal 0-49 years Vaccine Aged Out 02/07/2022, 12/02/2017 No longer eligibl e based on patient's age to complete this topic Hepatitis A vaccine Aged Out 05/25/2023, 12/22/2022, 06/23/2022 No longer eligible based on patient's age to complete this topic Hepatitis B vaccine Completed 05/25/2023, 12/22/2022, 06/23/2022 COVID-19 Vaccine Completed 12/07/2023, , 02/07/2022 HPV vaccine (No Doses Required) Completed Hib vaccine Aged Out No longer eligi [...] on patient's age to complete this topic Medical Devices Implanted Type Area Dock Guard Device Identifier Shelf Expiration Date Model / Serial / Lot Stent Uret 6fr L24cm Hydr+ Grad Circumferential Mrk Lo Prof - [id number] Implanted:Qty: 1 on 11/15/2024 by Faheem Stovall MD at [facility] Right: Ureter [facility] 04/12/2027 [id number] 20 / / [id number] Procedures Procedure Name Priority Date/Time Associated Diagnosis Comments CT ABDOMEN PELVIS W IV CONTRAST STAT 11/17/2024 10:05 PM EDT XR WRIST RIGHT (MIN 3 VIEWS) STAT 11/17/2024 10:02 PM EDT MICROSCOPIC URINALYSIS Routine 11/17/2024 9:50 PM EDT , URINE STAT 11/17/2024 9:50 PM EDT URINALYSIS STAT 11/17/2024 9:50 PM EDT LIPASE Add-On 11/17/2024 9:35 PM EDT HEPATIC FUNCTION PANEL Add-On 11/17/2024 9:35 PM EDT BASIC METABOLIC PANEL STAT 11/17/2024 9:35 PM EDT CBC WITH AUTO DIFFERENTIAL STAT 11/17/2024 9:35 PM EDT FLUORO FOR SURGICAL PROCEDURES Routine 11/15/2024 5:32 PM EDT GLUCOSE, WHOLE BLOOD Routine 11/15/2024 5:29 PM EDT STONE ANALYSIS Routine 11/15/2024 5:05 PM EDT Ureteral stone with hydronephrosis MT CYSTO/URETERO W/LITHOTRIPSY &INDWELL STENT INSRT 11/15/2024 4:30 PM EDT Ureteral stone with hydronephrosis Special Needs pre op ekg ordered/ will arrive at 3pm per Kerline mSiley RN. [id number] Joe GLUCOSE, WHOLE BLOOD Routine 11/15/2024 3:12 PM EDT EKG 12-LEAD Routine 11/15/2024 11:10 AM EDT Pre-op testing URINALYSIS WITH MICROSCOPIC Routine 11/14/2024 6:50 PM EDT Gross hematuria BASIC METABOLIC PANEL Routine 11/14/2024 6:50 PM EDT Gross hematuria Renal colic CBC WITH AUTO DIFFERENTIAL Routine 11/14/2024 6:50 PM EDT Gross hematuria Renal colic CULTURE, URINE Routine 11/14/2024 6:50 PM EDT Gross hematuria CT ABDOMEN PELVIS WO CONTRAST STAT 11/14/2024 6:22 PM EDT Gross hematuria Renal colic XR ABDOMEN (KUB) (SINGLE AP VIEW) Routine 11/07/2024 4:21 PM EDT Renal calculus from Last 3 Months Results * CT ABDOMEN PELVIS W IV [...] hydronephrosis. Contrast Dosage us Benja Echavarria MD [facility] ORDERABLES Final Result * XR WRIST [...] the radiocarpal joint and diffuse osteopenia. Benja Echavraria MD IM DIAGNOSTIC IMAGING ORDERABLE S Final Result * (ABNORMAL) Microscopic Urinalysis (11/17/2024 9:50 PM EDT) WBC, UA 5 TO 10 0 - 5 /HPF 11/17/2024 9:50 PM EDT [facility] RBC, UA GREATER THAN 100 0 - 2 /HPF 11/17/2024 9:50 PM EDT [facility] Epithelial Cells, UA 0 TO 2 0 - 25 /HPF 11/17/2024 9:50 PM EDT [facility] Bacteria, UA 3+(A) None 11/17/2024 9:50 PM EDT [facility] 11/17/2024 9:50 PM EDT 11/17/2024 10:40 PM EDT Benja Echavarria MD URINE ORDERABLES Final Result Performing Organization Address [facility] Co de Phone Number [facility] [address] [place] [address] * Urine Preg (Lab) (11/17/2024 9:50 PM EDT) , Urine NEGATIVE NEGATIVE 11/18/19 9:50 PM EDT [facility] Comment: Specimens with hCG levels [...] URINE ORDERABLES Final Result Performing Organization Address [facility] Co de Phone Number [facility] [address] [place] [address] * (ABNORMAL) Urinalysis (11/17/2024 9:50 PM EDT) Color, UA Red(A) Yellow 11/17/2024 9:50 PM EDT [facility] Turbidity UA Cloudy(A) Clear 11/17/2024 9:50 PM EDT [facility] Glucose, Ur 3+(A) NEGATIVE mg/dL 11/17/2024 9:50 PM EDT [facility] Bilirubin, Urine NEGATIVE NEGATIVE 11/17/2024 9:50 PM EDT [facility] Ketones, Urine TRACE(A) NEGATIVE mg/dL 11/17/2024 9:50 PM EDT [facility] Specific [place], UA 1.020 1.010 - 1.020 11/17/2024 9:50 PM EDT [facility] Urine Hgb 3+(A) NEGATIVE 11/17/2024 9:50 PM EDT [facility] pH, Urine 5.5 5.0 - 9.0 11/17/2024 9:50 PM EDT [facility] Protein, UA 2+(A) NEGATIVE mg/dL 11/17/2024 9:50 PM EDT [facility] Urobilinogen, Urine Normal 0.0 - 1.0 EU/dL 11/17/2024 9:50 PM EDT [facility] Nitrite, Urine POSITIVE(A) NEGATIVE 11/17/2024 9:50 PM EDT [facility] Leukocyte Esterase, Urine SMALL(A) NEGATIVE 11/17/2024 9:50 PM EDT [facility] Comment Results may be affected due to urine color interference . 11/17/2024 9:50 PM EDT [facility] Urine URINE SPECIMEN / Unknown 11/17/2024 9:50 PM EDT 11/17/2024 10:40 PM EDT us Benja Echavarria MD URINE ORDERABLES Final Result [facility] [address] [phone] * (ABNORMAL) CBC with Auto Differential (11/17/2024 9:35 PM EDT) Only the most recent of2 resultswithin the time period is included. WBC 14.1(H) 3.5 - 11.3 k/uL 11/17/2024 9:35 PM EDT [facility] RBC 4.46 3.95 - 5.11 m/uL 11/17/2024 9:35 PM EDT [facility] Hemoglobin 12.7 11.9 - 15.1 g/dL 11/17/2024 9:35 PM EDT [facility] Hematocrit 38.8 36.3 - 47.1 % 11/17/2024 9:[address] [facility] MCV 87.0 82.6 - 102.9 fL 11/17/2024 9:[facility] MCH 28.5 25.2 - 33.5 pg 11/17/2024 9:[address] [facility] MCHC 32.7 28.4 - 34.8 g/dL 11/17/2024 9:[address] [facility] RDW 15.0(H) 11.8 - 14.4 % 11/17/2024 9:[address] [facility] Platelets 316 138 - 453 k/uL 11/17/2024 9:[address] [facility] MPV 10.3 8.1 - 13.5 fL 11/17/2024 9:[address] [facility] NRBC Automated 0.0 0.0 per 100 WBC 11/17/2024 9:[address] [facility] Neutrophils % 66(H) 36 - 65 % 11/17/2024 9:[address] [facility] Lymphocytes % 24 24 - 43 % 11/17/2024 9:[address] [facility] Monocytes % 5 3 - 12 % 11/17/2024 9:[address] [facility] Eosinophils % 3 1 - 4 % 11/17/2024 9:[address] [facility] Basophils % 1 0 - 2 % 11/17/2024 9:[address] [facility] Immature Granulocytes % 1(H) 0 % 11/17/2024 9:[address] [facility] Neutrophils Absolute 9.43(H) 1.50 - 8.10 k/uL 11/17/2024 9:[address] [facility] Lymphocytes Absolute 3.36 1.10 - 3.70 k/uL 11/17/2024 9:[address] [facility] Monocytes Absolute 0.69 0.10 - 1.20 k/uL 11/17/2024 9:[address] [facility] Eosinophils Absolute 0.38 0.00 - 0.44 k/uL 11/17/2024 9:35 PM EDT [facility] Basophils Absolute 0.07 0.00 - 0.20 k/uL 11/17/2024 9:35 PM EDT [facility] Immature Granulocytes Absolute 0.13 0.00 - 0.30 k/uL 11/17/2024 9:35 PM EDT [facility] Blood BLOOD SPECIMEN / Unknown 11/17/2024 9:35 PM EDT 11/17/2024 9:38 PM EDT us Benja Echavarria MD HEMATOLOGY ORDERABLES Final Resu lt Performing Organization Address City/[facility]/ZIP Co de Phone Number [facility] [address] [place] [address] * Lipase (11/17/2024 9:35 PM EDT) Lipase 25 13 - 60 U/L 11/17/2024 9:35 PM EDT [facility] Blood BLOOD SPECIMEN / Unknown 11/17/2024 9:35 PM EDT 11/17/2024 11:12 PM EDT us Benja Echavarria MD CHEMISTRY ORDERABLES Final Resul t Performing Organization Address [facility]/ZIP Co de Phone Number [facility] [address] [place] [address] * (ABNORMAL) Hepatic Function Panel (11/17/2024 9:35 PM EDT) Albumin 3.9 3.5 - 5.2 g/dL 11/17/2024 9:35 PM EDT [facility] Alkaline Phosphatase 101 35 - 104 U/L 11/17/2024 9:35 PM EDT [facility] ALT 51(H) 10 - 35 U/L 11/17/2024 9:35 PM EDT [facility] AST 32 10 - 35 U/L 11/17/2024 9:35 PM EDT [facility] Total Bilirubin <0.2 0.00 - 1.20 mg/dL 11/17/2024 9:35 PM EDT [facility] Bilirubin, Direct <0.2 0.00 - 0.30 mg/dL 11/17/2024 9:35 PM EDT [facility] Bilirubin, Indirect Can not be calculated 0.0 - 1.0 mg/dL 11/17/2024 9:35 PM EDT [facility] Total Protein 6.9 6.6 - 8.7 g/dL 11/17/2024 9:35 PM EDT [facility] Albumin/Globuli n Ratio 1.3 1.0 - 2.5 11/17/2024 9:35 PM EDT [facility] Blood BLOOD SPECIMEN / Unknown 11/17/2024 9:35 PM EDT 11/17/2024 11:12 PM EDT us Benja Echavarria MD CHEMISTRY ORDERABLES Final Resul t [facility] [address] [phone] * (ABNORMAL) BMP (11/17/2024 9:35 PM EDT) Only the most recent of2 resultswithin the time period is included. Sodium 141 136 - 145 mmol/L 11/17/2024 9:35 PM EDT [facility] Potassium 3.7 3.7 - 5.3 mmol/L 11/17/2024 9:35 PM EDT [facility] Chloride 106 98 - 107 mmol/L 11/17/2024 9:35 PM EDT [facility] CO2 23 20 - 31 mmol/L 11/17/2024 9:35 PM EDT [facility] Anion Gap 12 9 - 16 mmol/L 11/17/2024 9:35 PM EDT [facility] Glucose 118(H) 74 - 99 mg/dL 11/17/2024 9:35 PM EDT [facility] BUN 15 6 - 20 mg/dL 11/17/2024 9:35 PM EDT [facility] Creatinine 0.7 0.50 - 0.90 mg/dL 11/17/2024 9:35 PM EDT [facility] Est, Glom Filt Rate >90 >60 mL/min/1.7 3m2 11/17/2024 9:35 PM EDT [facility] Comment: These results are not [...] 9 - 20 11/17/2024 9:35 PM EDT [facility] Calcium 8.8 8.6 - 10.4 mg/dL 11/17/2024 9:35 PM EDT [facility] Blood BLOOD SPECIMEN / Unknown 11/17/2024 9:35 PM EDT 11/17/2024 9:38 PM EDT Benja Echavarria MD CHEMISTRY ORDERABLES Final Resul t [facility] [address] [phone] * FLUORO FOR SURGICAL PROCEDURES (11/15/2024 5:32 PM EDT) Narrative [facility] CONSOLIDATED - 11/15/2024 5:32 PM EDT Radiology exam is complete. No Radiologist dictation. Please follow up with ordering provider. Faheem Stovall MD IMG FLUOROSCOPY ORDERABLES F inal Result [facility] CONSOLIDATED * Glucose, Whole Blood (11/15/2024 5:29 PM EDT) Only the most recent of2 resultswithin the time period is included. POC Glucose 83 74 - 100 mg/dL 11/15/2024 5:29 PM EDT [facility] 11/15/2024 5:29 PM EDT 11/15/2024 5:36 PM EDT Faheem Stovall MD CHEMISTRY ORDERABLES Final R esult Performing Organization Address [facility] Co de Phone Number [facility] [address] [place] [address] * Stone Analysis (11/15/2024 5:05 PM EDT) Pathologist [facility] Stone Composition See Note 025 5:05 PM EDT [facility] Comment: (NOTE) Calculi composed primarily of calcium oxalate monohydrate. INTERPRETIVE INFORMATION: Calculi (Stone) analysis Calculi are the products of physiological processes that yield crystalline compounds in a matrix of biological compounds and blood. Matrix components are not reported. The clinically significant crystalline components identified in calculi specimens are reported. Gross description may not be consistent with composition determined by FTIR analysis. Performed By: [facility] [address] [place] [address] Avionics System Engineer: Tony Rodrigez MD, PhD CLIA Number: [id number] Stone Mass 21 mg 11/15/2024 5:05 PM EDT [facility] Stone Description See Note 025 5:05 PM EDT [facility] Comment: (NOTE) Specimen consists of one brown and gonzalez calculus. The total weight is 21 mg. Stone (Calculus) URETHRAL SWAB / Unknown 11/15/2024 5:05 PM EDT Comment:Pre-op diagnosis: Ureteral stone with hydronephrosis [N13.2] Faheem Stovall MD MICROBIOLOGY - GENERAL ORDER SHIRA Final Result Performing Organization Address [facility]/ZIP Co de Phone Number [facility] [address] [place] [address] [facility] [address] [phone] * EKG 12 Lead (11/15/2024 11:10 AM EDT) Ventricular Rate 89 BPM [facility] N [facility] RAD[facility] Atrial Rate 89 BPM [facility] RADIOLOGY P-R Interval 126 ms [facility] RADIOLOGY QRS Duration 78 ms [facility] RAD[facility] Q-T Interval 358 ms [facility] RADIOLOGY QTc Calculation (Bazett) 435 ms [facility] RADIOLOGY P [place] 47 degrees [facility] RADIOLOGY R [place] 25 degrees [facility] RADIOLOGY T [place] 33 degrees [facility] RAD[facility]OLOGY 11/15/2024 11:1 0 AM EDT Narrative [facility] RADIOLOG[facility] - 11/15/2024 11:10 PM EDT Normal sinus rhythm Normal ECG When compared with ECG of 13-Jan-2024 14:59, No significant change was found Confirmed by Baltazar Keith ([id number]) on 11/15/2024 11:10:53 PM Procedure Note Baltazar Keith MD - 11/15/2024 Normal sinus rhythm Normal ECG When compared with ECG of 13-Jan-2024 14:59, No significant change was found Confirmed by Baltazar Keith ([id number]) on 11/15/2024 11:10:53 PM Karen Cotter SOLE STAINER - RESIDENTIAL CONCIERGE ECG ORDERABLES Fin al Result [facility] * (ABNORMAL) Urinalysis with Microscopic (11/14/2024 6:50 PM EDT) Color, UA Yellow Yellow 11/14/2024 6:50 PM EDT [facility] Turbidity UA Turbid(A) Clear 11/14/2024 6:50 PM EDT [facility] Glucose, Ur 3+(A) NEGATIVE mg/dL 11/14/2024 6:50 PM EDT [facility] Bilirubin, Urine NEGATIVE NEGATIVE 11/14/2024 6:50 PM EDT [facility] Ketones, Urine TRACE(A) NEGATIVE mg/dL 11/14/2024 6:50 PM EDT [facility] Specific [place], UA 1.010 1.010 - 1.020 11/14/2024 6:50 PM EDT [facility] Urine Hgb 3+(A) NEGATIVE 11/14/2024 6:50 PM EDT [facility] pH, Urine 6.5 5.0 - 9.0 11/14/2024 6:50 PM EDT [facility] Protein, UA 1+(A) NEGATIVE mg/dL 11/14/2024 6:50 PM EDT [facility] Urobilinogen, Urine Normal 0.0 - 1.0 EU/dL 11/14/2024 6:50 PM EDT [facility] Nitrite, Urine NEGATIVE NEGATIVE 11/14/2024 6:50 PM EDT [facility] Leukocyte Esterase, Urine NEGATIVE NEGATIVE 11/14/2024 6:50 PM EDT [facility] WBC, UA 0 TO 2 0 - 5 /HPF 11/14/2024 6:50 PM EDT [facility] RBC, UA GREATER THAN 100 0 - 2 /HPF 11/14/2024 6:50 PM EDT [facility] Epithelial Cells, UA 0 TO 2 0 - 25 /HPF 11/14/2024 6:50 PM EDT [facility] Bacteria, UA 1+(A) None 11/14/2024 6:50 PM EDT [facility] Urine URINE SPECIMEN / Unknown 11/14/2024 6:50 PM EDT 11/14/2024 7:10 PM EDT us Georges Valencia PA-C URINE ORDERABLES Final Res ult [facility] [address] [place] [id number] [phone] * (ABNORMAL) Culture, Urine (11/14/2024 6:50 PM EDT) Specimen Description .CLEAN CATCH URINE 11/14/2024 6:50 PM EDT [facility] Special Requests Site: Urine 11/14/2024 6:50 PM EDT [facility] Culture STREPTOCOCCUS AGALACTIAE (GROUP B) <[id number] CFU/ML Group B strep is identified at any colony count in a female who could potentially be based on age only. Group B strep isolated in urine at any colony count is considered a surrogate for vaginal rectal colonization in the context of determining quincy-vicki therapy. Treatment for UTI or asymptomatic bacteriuria should be based on colony count and clinical symptoms and not on the presence of the organism alone. Identification by MALDI-TOF(A) 11/14/2024 6:50 PM EDT [facility] Urine URINE SPECIMEN / Unknown 11/14/2024 6:50 PM EDT 11/14/2024 7:10 PM EDT Georges Valencia PA-C MICROBIOLOGY - GENERAL ORD ERABLES Final Result [facility] [address] [place] [address], [facility] [phone] [place] [id number] [place] [id number], [facility] [phone] * CT ABDOMEN PELVIS WO CONTRAST Additional [...] 2. Fatty liver. us Georges Valencia PA-C IM CT ORDERABLES Final Re sult * XR ABDOMEN (KUB) (SINGLE AP VIEW) (11/07/2024 4:21 PM EDT) Anatomical Region Laterality Modality Abdomen Computed Radiogr aphy 11/11/2024 6:22 AM EDT Impressions 11/11/2024 6:22 AM EDT 1. Several tiny calculi in the right kidney, largest measuring about 1 to 4 mm. Narrative 11/11/2024 6:22 AM EDT EXAM: 1 VIEW XRAY OF THE ABDOMEN 11/07/2024 04:21:22 PM COMPARISON: None available. CLINICAL HISTORY: Renal calculus. ORDERING SYSTEM PROVIDED HISTORY: Renal calculus; TECHNOLOGIST PROVIDED HISTORY: [facility] Crow [phone] or [phone] FINDINGS: BOWEL: Nonobstructive bowel gas pattern. SOFT TISSUES: No opaque urinary calculi. Surgical clips in right upper quadrant. BONES: No acute osseous abnormality. KIDNEYS, URETERS, BLADDER: Several tiny calculi in right kidney, largest measuring about 1 to 4 mm. Multiple calcifications in pelvis, most likely representing phleboliths. Procedure Note Fady Barnes MD - 11/11/2024 EXAM: 1 VIEW XRAY OF THE ABDOMEN 11/07/2024 04:21:22 PM COMPARISON: None available. CLINICAL HISTORY: Renal calculus. ORDERING SYSTEM PROVIDED HISTORY: Renal calculus;TECHNOLOGIST PROVIDED HISTORY: [facility] Manuel Pino [phone] or [phone] FINDINGS: BOWEL: Nonobstructive bowel gas pattern. SOFT TISSUES: No opaque urinary calculi. Surgical clips in right upper quadrant. BONES: No acute osseous abnormality. KIDNEYS, URETERS, BLADDER: Several tiny calculi in right kidney, largest measuring about 1 to 4 mm.Multiple calcifications in pelvis, most likely representing phleboliths. IMPRESSION: 1. Several tiny calculi in the right kidney, largest measuring about 1 to4 mm. Faheem Stovall MD G DIAGNOSTIC IMAGING ORDER SHIRA Final Result from Last 3 Months Insurance [facility] PL[facility] Advance Directives * Full Code (Latest Code Status on File) Date Activated Date Inactivated Comments 11/15/2024 3:11 PM 11/15/2024 8:41 PM Care Teams Cardiopulmonary Technician And Eeg Tech Relationship Specialty Start Date End Date Loreto Mcneal APRN - NP [address] [facility] [place] [address] PCP - General 11/11/23
--- OUTSIDE RECORDS SUMMARY | 2024-12-01 13:18 | XMS_ITS | Encounter Summary ---
Author Organization [facility] Sys tem Address [id number] [address] [place] [address] Care Team Providers Care Patient Support Partner Name Role Phone Services, [facility] Primary Care Provider Reason for Visit * Reason Comments Med Refill Encounter Details Date Type Department Care Team (Late st Contact Info) Description 08/11/2017 Refill [facility] [address] [place] [address] [place] [address] [place] [phone] Francia High, DOCUMENT PREPARATION SPECIALIST-[facility] [address] [place] [address] Social History Tobacco Use Types Packs/Day Years [...] documented as of this encounter Care Teams Patient Support Partner Relationship Specialty Start Date End Date Services, [facility] [address] [place], [place] PCP - General Family Medicine 10/05/23 documented as of this encounter
--- OUTSIDE RECORDS SUMMARY | 2024-12-01 13:18 | XMS_ITS | Encounter Summary ---
Author Organization [facility] Sys tem Address [id number] [address] [place] [address] Care Team Providers Care Wrapping Machine Helper Name Role [facility] Reason for Visit * Reason Onset Date Comments Med Refill 11/10/2017 Encounter Details Date Type Department Care Team (Late st Contact Info) Description 11/10/2017 [facility] [address] [place] [phone] Amy Cerna LPN Social History Tobacco Use [...] documented as of this encounter Care Teams Wrapping Machine Helper Relationship Specialty Start Date End Date Services, [facility] [address] [place], [place] PCP - General Family Medicine 10/05/23 documented as of this encounter
--- OUTSIDE RECORDS SUMMARY | 2024-12-01 13:18 | XMS_ITS | Encounter Summary ---
Author Organization [facility] Address [address] [place] [address] Care Team Providers Care Delivery Person Name Role Phone Zully Key LIFT SLAB OPERATOR Unavailable Shawna Dudley DO Primary Care Provider [phone] Sasha Santos DO Unavailable [phone] Mendez Ortiz DO Unavailable [phone] Encounter Details Date Type Department Care Team (Late st Contact Info) Description 11/03/2024 Abstract [facility] [address] [place] [address] [place] [address] Wilbert [place], [place] Social History Tobacco Use Types Packs/Day [...] Visit [facility] [address] [place] [address] Cleo Zambrano MD [address] [place] [address] 05/31/2025 1:00 PM EDT Office Visit [facility]ALII[facility] BONILLA [address] [place] [place] [phone] Roel Garber DO [address] [facility] [place] [address] 08/18/2025 2:00 PM EDT Office Visit [facility] [address] [place] [phone] Mendez Ortiz DO [address] [place] [address] documented as of this encounter Visit Diagnoses Not on filedocumented in this encounter Care Teams Delivery Person Relationship Specialty Start Date End Date Shawna Dudley DO [address] [place] [address] PCP - General Family Medicine 04/14/22 Key Andrea NP [address] [place] [address] Referring Physician Family Medicine 08/13/23 Sasha Santos DO [address] [place] [address] Referring Physician Neurology 05/10/24 Mendez Ortiz DO [address] [place] [address] Otolaryngology 08/19/24 documented as of this encounter
--- OUTSIDE RECORDS SUMMARY | 2024-12-01 13:18 | XMS_ITS | Encounter Summary ---
Author Organization [facility] Address [address] [place] [address] Care Team Providers Care Lens Assorter Name Role Phone Loreto Mcneal Primary Care Provider Encounter Details Date Type Department Care Team (Late st Contact Info) Description 11/23/2024 Orders Only [facility] [address] [place] [address] Torie Jimenez MA Other chest pain (Primary Dx); Pre-op evaluation Social History Tobacco Use Types Packs/Day Years [...] PM EDT documented as of this encounter Functional Status * BP Answer Date of Assessment Author 128/83 11/23/2024 10:58 AM EDT Gayathri Shipman am, [place] * Pulse Answer Date of Assessment Author 83 11/23/2024 10:58 AM EDT Gayathri Shipman am, [place] * Patient Position Answer Date of Assessment Author Sitting 11/23/2024 10:58 AM EDT Gayathri Shipman am, [place] * BP Answer Date of Assessment Author Ella/83 11/23/2024 10:58 AM EDT Gayathri Shipman am, [...] am, [place] documented as of this encounter Plan of Treatment Scheduled Orders Name Type Priority Associated Diagnoses Orde r Schedule Lexiscan Stress Myocardial Perfusion Imaging Cardiac Services Routine Other chest pain Pre-op evaluation Expected: 11/23/2024 (Approximate), Expires: 11/23/2026 documented as of this encounter Visit Diagnoses Diagnosis Other chest pain- Primary Pre-op evaluation documented in this encounter Care Teams Lens Assorter Relationship Specialty Start Date End Date Loreto Mcneal [address] PCP - General 03/30/24 documented as of this encounter
--- OUTSIDE RECORDS SUMMARY | 2024-12-01 13:18 | XMS_ITS | Encounter Summary ---
Author Organization [facility] Address [address] [place] [address] Care Team Providers Care Professor Of Economics Name Role Phone Key Andrea SECTION REPAIRER Unavailable Shawna Dudley DO Primary Care Provider [phone] Sasha Santos DO Unavailable [phone] Mendez Ortiz DO Unavailable [phone] Encounter Details Date Type Department Care Team (Late Contact Info) Description 08/10/2024 External Result Encounter [facility] External Department Unsolicited Mendez Ortiz DO [address] [place] [address] Social History Tobacco Use Types Packs/Day Years [...] Team ([facility] Contact Info) Description 04/06/2025 10:40 AM EST Office Visit [facility] [address] [place] [address] Cleo Zambrano MD [address] [place] [address] 05/31/2025 1:00 PM EDT Office Visit NATALIIA BONILLA [address] [place] [phone] Roel Garber DO [address] [facility] [place] [address] 08/18/2025 2:00 PM EDT Office Visit [facility] [address] [place] [address] Mendez Ortiz DO [address] [place] [address] documented as of this encounter Procedures Procedure [...] Jr., D.O. 08/10/2024 10:43 AM Dictation Location: [place] [address] Transcribed By: PWS 08/10/24 1043 Dictated By: Alin Ornelas Jr, DO 08/10/24 1042 Signed By: <Electronically signed by Alin Ornelas Jr, DO in OV> 08/10/24 1043 Narrative 08/10/2024 10:45 AM EDT [facility] [place] [address] [place] [address] XRay Report Signed Patient: Karma Candelaria MR#: [id number] : 1980 Acct:[id number] Age/Sex: 43 / F ADM Date: 08/10/24 Loc: [place] Room: Type: [facility] Attending Dr: Mendez Ortiz DO Copies [...] Procedure Note Alin Ornelas Jr., - 09/08/2024 [facility] [place] [address] [place] [address] XRay Report Signed Patient: Karma Candelaria AMR#: [id number] : 1980Acct:[id number] Age/Sex: 43 / FADM Date: 08/10/24 Loc: [place] Room:Type: [facility] Attending Dr: Mendez Ortiz DO Copies [...] Jr., D.O. 08/10/2024 10:43 AM Dictation Location: [place] [address] Transcribed By: [facility] 08/10/24 1043 Dictated By: Alin Ornelas Jr, DO 08/10/24 1042 Signed By: <Electronically signed by Alin Ornelas Jr, DO inOV> 08/10/24 1043 us Mendez Ortiz DO IMG XR PROCEDURES Edited Re sult - Final documented in this encounter Visit Diagnoses Not on filedocumented in this encounter Care Teams Professor Of Economics Relationship Specialty Start Date End Date Shawna Dudley DO [address] [place] [address] PCP - General Family Medicine 04/14/22 Key Andrea NP [address] [place] [address] Referring Physician Family Medicine 08/13/23 Sasha Santos DO [address] [place] [address] Referring Physician Neurology 05/10/24 Mendez Ortiz DO [address] [place] [address] Otolaryngology 08/19/24 documented as of this encounter
--- OUTSIDE RECORDS SUMMARY | 2024-12-01 13:18 | XMS_ITS | Encounter Summary ---
[facility][id number] [address] [place] [address] Care Team Providers Care Sand Polisher Name Role Phone Services, [facility] Primary Care Provider Reason for Visit * Reason Onset Date Comments Med Refill 06/19/2017 Encounter Details Date Type Department Care Team (Late st Contact Info) Description 06/19/2017 [facility] [address] [facility] [place] [phone] Amy Cerna LPN Social History Tobacco Use [...] documented as of this encounter Care Teams Sand Polisher Relationship Specialty Start Date End Date Services, [facility] [address] [place], [place] PCP - General Family Medicine 10/05/23 documented as of this encounter
--- OUTSIDE RECORDS SUMMARY | 2024-12-01 13:18 | XMS_ITS | Encounter Summary ---
Author Organization [facility] Sys tem Address [facility] [place]-[id number] [address] [place] [address] Care Team Providers Care Liaison Engineer Name Role Phone Services, [facility] Primary Care Provider Reason for Visit * Reason Comments Med Refill Encounter Details Date Type Department Care Team (Late st Contact Info) Description 01/23/2019 Refill [facility] [address] [place] [phone] Zelalem Pathak MD [address] Provider retired 05/31/24 [place], [place] [phone] Social History Tobacco Use Types Packs/Day Years [...] documented as of this encounter Care Teams Liaison Engineer Relationship Specialty Start Date End Date Services, [facility] [address] [place], [place] PCP - General Family Medicine 10/05/23 documented as of this encounter
--- OUTSIDE RECORDS SUMMARY | 2024-12-01 13:18 | XMS_ITS | Clinical Summary ---
Author Organization [facility] Address [address] [place] [address] Care Team Providers Care Esthetician Spa Name Role Phone Key nAdrea MANAGER POOL Unavailable Shawna Dudley DO Primary Care Provider [phone] Sasha Santos DO Unavailable [phone] Mendez Ortiz DO Unavailable [phone] Allergies Active Allergy Reactions Criticality Noted Date [...] Take 180 mg by mouth Daily Active docusate sodium (Colace) 100 MG capsule [...] 2 (TWO) weeks NEEDED 15 g 2 01/02/2 025 Active gabapentin (Neurontin) 300 MG capsuleIndicatio [...] Do not crush, chew, or split. Active lansoprazole (Prevacid) [address] capsule Take 30 mg by mouth Daily 025 Active SUMAtriptan (Imitrex) 100 MG tabletIndication s:Migraine with aura and without status migrainosus, not intractable TAKE 1 TABLET BY MOUTH DAILY NEEDED FOR MIGRAINE 9 tablet 1 025 Active Mounjaro 2.5 MG/0.5ML solution auto-injectorInd ications: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, unspecified whether fpc insulin use (HCC) INJECT 2.5 MG SUBCUTANEOUSLY (UNDER THE SKIN) EVERY 7 DAYS 2 mL 3 025 Active ferrous sulfate 28 MG tabletIndication s:Other osteoporosis without current pathological fracture,Other iron deficiency anemia Take 1 tablet (28 mg) by mouth in the morning. Take with meals. 30 tablet 11 025 Active Calcium Carbonate-Vit D-Min (Calcium 1200) 7629-7321 MG-UNIT chewable tabletIndication s:Osteopenia, unspecified location Chew 1,200 mg Daily 90 tablet 3 025 2025 Active semaglutide (Ozempic, 0.25 or 0.5 MG/DOSE,) 2 MG/1.5ML solution pen-injectorIndi cations: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, unspecified whether fpc insulin use (HCC) Inject 0.5 mg under the skin 1 (one) time per week 4.5 mL 1 025 2025 Active empagliflozin (Jardiance) 25 MGIndications:Ty pe 2 diabetes mellitus with hyperglycemia, without long-term current use of insulin (HCC) Take 1 tablet (25 mg) by mouth Daily 30 tablet 5 025 2024 Active pioglitazone (Actos) 30 MG tabletIndication s:Type 2 diabetes mellitus with hyperglycemia, without long-term current use of insulin (HCC) Take 1 tablet (30 mg) by mouth Daily 30 tablet 5 Active etonogestrel-elu ting (Nexplanon) 68 mg contraceptive implant Inject 68 mg under the skin 1 (one) time 2024 Discontinued ferrous sulfate 28 MG tablet Take 28 mg by mouth in the morning. Take with meals. 2024 Discontinued(R eorder) famotidine (Pepcid) 40 MG tablet Take 40 mg by mouth Daily 025 2024 Discontinued empagliflozin (Jardiance) 25 MGIndications:Ty pe 2 diabetes mellitus without complication, unspecified whether terminal system operator insulin use ([facility]) Take 1 tablet (25 mg) by mouth Daily 30 tablet 2 025 2024 Discontinued(R eorder) pioglitazone (Actos) 30 MG tabletIndication s: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, unspecified whether terminal system operator insulin use ([facility]) Take 1 tablet (30 mg) by mouth Daily 30 tablet 3 025 2024 Discontinued(R eorder) Tirzepatide (Mounjaro) 5 MG/0.5ML solution auto-injectorInd ications: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, unspecified whether terminal system operator insulin use ([facility]) Inject 5 mg under the skin every 7 (seven) days 6 mL 1 025 2024 Active Problems Problem Noted Date Diagnosed Date Hypoglycemia 12/01/2024 Type 2 diabetes mellitus wit h hyperglycemia, without long-term current use of insulin 12/01/2024 Other osteoporosis without current pathological fracture 11/02/2024 Vitamin D deficiency, unspecified 02/11/2024 Hyperlipidemia, unspecified [...] (03/10/2023): Added automatically from request for surgery [id number] Lumbosacral spondylosis without myelopathy 07/22 Overview (03/10/2023): Added automatically from request for surgery [id number] PTSD (post-traumatic stress disorder) 06/16/2018 Cervical disc displacement 09/21/2017 Acute cholecystitis 09/15/2016 Resolved Problems Problem Noted Date Diagnosed Date Resolved Date Bipolar 1 disorder, mixed, moderate 11/11/2024 11/11/2024 Elevated liver function tests 08/17/2024 08/17/2024 Fatty [...] Mixed bipolar affective disorder, moderate 04/27/2024 04/27/2024 Type II diabetes mellitus with complication 02/11/2024 12/01/2024 Macromastia 10/08/2023 02/18/2024 Mass of upper outer quadrant of right breast 02/18/2024 Symptomatic mammary hypertrophy 06/02/2023 02/18/2024 Hot flashes 03/10/2023 03/10/2023 Open wound of toe without complication 03/10/2023 03/10/2023 Disorder of sacrum 01/29/2023 Type 2 diabetes mellitus wit hout complications 11/10/2017 12/01/2024 Postoperative abscess 09/28/20162023 Encounters Date Type Department Care Team Description 12/01/2024 11:00 AM EDT Office Visit [facility] [address] [place] [address] Cleo Zambrano MD Type 2 diabetes mellitus with hyperglycemia, without long-term current use of insulin (HCC) (Primary Dx); Vitamin D deficiency; Weight gain; Encounter for dietary consultation; Hyperlipemia, mixed; Diabetes mellitus with complication (HCC); Hypoglycemia 12/01/2024 Refill [facility] [address] [place] [address] Pilar Valdez LPN Type 2 diabetes mellitus with hyperglycemia, without long-term current use of insulin (HCC) 12/01/2024 Bamboo flowsheet [facility] [address] [place] [address] Cleo Zambrano MD 11/24/2024 Telephone [facility] [address] [place] [address] [place] [address] Roel Garber DO 11/21/2024 Orders Only [facility] [address] [place] [address] Cleo Zambrano MD 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, unspecified whether terminal system operator insulin use (HCC) (Primary Dx) 11/16/2024 Telephone [facility] [address] [place] [address] Cleo Zambrano MD Med Refill 11/11/2024 3:15 PM EDT Office Visit [facility] [address] [place] [address] Mendez Ortiz, Obstructive sleep apnea (Primary Dx); Class 3 severe obesity with serious comorbidity and body mass index (BMI) of 40.0 to 44.9 in adult, unspecified obesity type ([facility]); Intolerance of continuous positive airway pressure (CPAP) ventilation 11/11/2024 Bamboo flowsheet [facility] [address] [place] [address] Mendez Ortiz, 11/11/2024 Travel 11/03/2024 Refill [facility] [address] [facility] [place] [address] Arcelia Duran NP Osteopenia, unspecified location 11/03/2024 Abstract [facility] [place] [address] [facility] [place] [address] Alissa Atkins MA 11/02/2024 1:20 PM EDT Office Visit [facility] [place] [facility] [address] [facility] [place] [address] Roel Garber DO Osteopenia, unspecified location (Primary Dx); Other osteoporosis without current pathological fracture ; Other iron deficiency anemia 11/02/2024 Bamboo flowsheet [facility] [address] [facility] [place] [address] Roel Garber DO 10/03/2024 Telephone [facility] [address] [place] [address] Cleo Zambrano MD Med Refill 09/29/2024 10:15 AM EDT Office Visit [facility] [address] [place] [address] Mendez Ortiz, Obstructive sleep apnea (Primary Dx) 09/29/2024 Bamboo flowsheet [facility] [address] [place] [address] Mendez Ortiz, 09/29/2024 Travel 09/21/2024 12:00 PM EDT Procedure Visit [facility] Mendez Ortiz, Obstructive sleep apnea (Primary Dx) 09/21/2024 External Result Encounter [facility] External Department Unsolicited Mendez Ortiz, 09/20/2024 1:00 PM EDT Office Visit [facility] [address] [place] [phone] Mendez Ortiz, Obstructive sleep apnea (Primary Dx); Class 3 severe obesity with serious comorbidity and body mass index (BMI) of 40.0 to 44.9 in adult, unspecified obesity type ([facility]); Breakdown (mechanical) of implanted electronic neurostimulator, generator, sequela 09/20/2024 Bamboo flowsheet [facility] [address] [place] [address] Mendez Ortiz, 09/20/2024 Travel 09/15/2024 Refill [facility] [address] [place] [address] Cleo Zambrano MD 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, unspecified whether fpc insulin use (HCC) 09/01/2024 10:45 AM EDT Office Visit [facility] [address] [place] [place] [address] Mendez Ortiz, Obstructive sleep apnea (Primary Dx) 09/01/2024 Bamboo flowsheet [facility] [address] [place] [place] [address] Mendez Ortiz, 09/01/2024 Travel from Last 3 Months Immunizations Immunization [...] Mass Index 40.21 12/01/2024 10:57 AM EDT Plan of Treatment Upcoming Encounters Date Type Department Care Team (Late st Contact Info) Description 04/06/2025 10:40 AM EST Office Visit [facility] [address] [place] [address] Cleo Zambrano MD [address] [place] [address] 05/31/2025 1:00 PM EDT Office Visit [facility] [facility] [address] [facility] [place] [phone] Roel Garber DO [address] [facility] [place] [address] 08/18/2025 2:00 PM EDT Office Visit [facility] [address] [place] [place] [address] Mendez Ortiz DO [address] [place] [address] Health Maintenance Due Date Last Done Comments Mammogram 05/27/2025 05/27/2024, 03/02, 11/07/2021, Additional history exists Pap Smear 05/24/2026 05/25/2023, 05/19/2022 Cervical Cancer Screening 05/20/2027 HPV/Cotest 05/20/2027 Influenza Vaccine Completed 11/21/2024, , 12/22/2022, Additional history exists Procedures Procedure Name Priority Date/Time Associated Diagnosis Comments POCT GLYCOSYLATED HEMOGLOBIN (HGB A1C) Routine 12/01/2024 12:15 PM EDT Type 2 diabetes mellitus with hyperglycemia, without long-term current use of insulin (HCC) POCT GLUCOSE Routine 12/01/2024 12:12 PM EDT Type 2 diabetes mellitus with hyperglycemia, without long-term current use of insulin (HCC) GLUCOSE POCT GLUCOMETERS Routine 09/21/2024 11:00 AM EDT MM TOMOSYNTHESIS SCREENING BI 05/27/2024 4:48 PM EDT PAP SMEAR Routine 05/25/2023 12:00 AM EDT from Last 3 Months or Most Recently Relevant to Health Maintenance Results * POCT glycosylated hemoglobin (Hb A1C) [...] CARE TEST ENTER/EDIT ORDERABLES Final Result * GLUCOSE POCT GLUCOMETERS (09/21/2024 11:00 AM EDT) GLUCOSE POC GLUCOMETERS 89 mg/dL 09/21/2024 11:07 AM EDT [facility] Comment: Random Glucose Reference Range is dependent on time and content of last meal. Glucose of more than 200 mg/dL in a nonstressed, ambulatory subject supports the diagnosis of Diabetes Mellitus. COMMEMT1 Glu2: Cleaned Meter 09/21/2024 11:07 AM EDT [facility] Blood (Blood) 09/21/2024 11: 00 AM EDT 09/21/2024 11:07 AM EDT Mendez Ortiz DO LAB BLOOD ORDERABLES Final Result [facility] [address] [place] [address], [place] * MM TOMOSYNTHESIS SCREENING BI (05/27/2024 4:48 PM EDT) Anatomical Region Laterality Modality Other 05/27/2024 4:48 PM EDT Narrative 05/27/2024 4:49 [place] [address] Mammography Report Signed Patient: PEE WHITEHEAD MR#: [id number] : 1980 Acct:[id number] Age/Sex: 43 / F ADM Date: 05/27/24 Loc: MAMMO Attending Dr: Roel Garber D.O. Ordering Physician: Roel Garber D.O. Results: Date of Service: 05/27/24 Follow Up: Procedure(s): MM tomosynthesis screening BI Accession Number(s): [id number] cc: Roel Garber D.O.; Loreto Mcneal NP Patient Name: PEE WHITEHEAD MR#: [id number] : 1980 Exam Date: 05/27/2024 Ordering Doctor: [...] Treatments None Family Cancers None LOCATION: [facility] BREAST COMPOSITION: There are scattered areas [...] Signed By: 05/27/24 1649 DD/ 1648 TD/TT: Hash Slinger: Procedure Note Radiology, Radiologist, MD - 05/27/2024 [facility] [place] [id number] Mammography Report Signed Patient: PEE WHITEHEAD AMR#: [id number] : 1980Acct:[id number] Age/Sex: 43 / FADM Date: 05/27/24 Loc: MAMMO Attending Dr: Roel Garber D.O. Ordering Physician: Roel Garber D.O.Results: Date of Service: 05/27/24Follow Up: Procedure(s): MM tomosynthesis screening BI Accession Number(s): [id number] cc: Roel Garber D.O.; Loreto Mcneal NP Patient Name: PEE WHITEHEAD MR#: [id number] : 1980 Exam Date: 05/27/2024 Ordering Doctor: DR Roel Garber . RADIOLOGY REPORT PROCEDURE: MM TOMOSYNTHESIS SCREENING BI COMPARISON: MM DIAGNOSTIC MAMMO UNILAT RT, 03/25/2023. MG MAMM [id number] STELLA CAD, 03/16/2023. MM TOMOSYNTHESIS SCREENING BI, 11/07/2021. MM TOMOSYNTHESIS DIAGNOSTIC BI, 11/06/2020. INDICATIONS: Screening Calculator Name NCI Breast Cancer Risk Assessment Tool 5 Year Breast Cancer Risk Not Reported. Lifetime Breast Cancer Risk Not Reported. Personal Breast Cancer No Personal Ovarian Cancer No Treatments None Family Cancers None LOCATION: [facility] BREAST COMPOSITION: There are scattered areas [...] Serra D.O. Signed By:05/27/241648 DD/ 47 TD/TT: Hash Slinger: us Roel Shirlene DO [facility] Final Result * Pap Smear (05/25/2023 12:00 AM EDT) Swab Cervical swab / Unknown us Roel Shirlene DO LAB CYTOLOGY ORDERABLES Final Re sult EXTERNAL LAB from Last 3 Months or Most Recently Relevant to Health Maintenance Insurance [employer] Care Teams Esthetician Spa Relationship Specialty Start Date End Date Shawna Dudley DO [address] [place] [address] PCP - General Family Medicine 04/14/22 Key Andrea NP [address] [place] [address] Referring Physician Family Medicine 08/13/23 Sasha Santos DO [address] [place] [address] Referring Physician Neurology 05/10/24 Mendez Ortiz DO [address] [place] [address] Otolaryngology 08/19/24
--- OUTSIDE RECORDS SUMMARY | 2024-12-01 13:18 | XMS_ITS | Encounter Summary ---
Author Organization [facility] Address [address] [place] [address] Care Team Providers Care Graphic Illustrator Name Role Phone Key Andrea HYDRO STATION OPERATOR Unavailable Shawna Dudley DO Primary Care Provider [phone] Sasha Santos DO Unavailable [phone] Mendez Ortiz DO Unavailable Encounter Details Date Type Department Care Team (Late Contact Info) Description 06/27/2024 Abstract [facility] [address] [facility] [place] [address] Roel Garber DO [address] [facility] [address] [place], [place] [id number] Social History Tobacco Use Types Packs/Day Years [...] Upcoming Encounters Date Type Department Care Team ([facility] Contact Info) Description 04/06/2025 10:40 AM EST Office Visit [facility] [address] [place] [address] Cleo Zambrano MD [address] [place] [address] 05/31/2025 1:00 PM EDT Office Visit [facility] [address] [place] [address] Roel Garber DO [address] [facility] [place] [address] 08/18/2025 2:00 PM EDT Office Visit [facility] [address] [place] [address] Mendez Ortiz DO [address] [place] [address] documented as of this encounter Visit Diagnoses Not on filedocumented in this encounter Care Teams Graphic Illustrator Relationship Specialty Start Date End Date Shawna Dudley DO [address] [place], [place] [phone] PCP - General Family Medicine 04/14/22 Key Andrea NP [address] [place] [address] Referring Physician Family Medicine 08/13/23 Sasha Santos DO [address] [place] [address] Referring Physician Neurology 05/10/24 Mendez Ortiz DO [address] [place] [address] Otolaryngology 08/19/24 documented as of this encounter
--- OUTSIDE RECORDS SUMMARY | 2024-12-01 13:18 | XMS_ITS | Encounter Summary ---
Author Organization [id number] [address] [place] [address] Care Team Providers Care Draw Frame Runner Name Role Phone Services, [facility] Primary Care Provider Encounter Details Date Type Department Care Team (Late st Contact Info) Description 10/30/2017 Telephone [facility] Family Medicine [address] [place] [address] Amy Cerna LPN Social History [...] documented as of this encounter Care Teams Draw Frame Runner Relationship Specialty Start Date End Date Services, [facility] [address] [place], [place] PCP - General Family Medicine 10/05/23 documented as of this encounter
--- OUTSIDE RECORDS SUMMARY | 2024-12-01 13:18 | XMS_ITS | Patient Health Record ---
Author Organization [employer] [facility] Address [address] [facility] [address], [place] [address] Care Team Providers Care Sheet Heater Name Role Phone Adam Yung Unavailable [phone] Allergies Allergen (clinical drug ingredient) Drug/Non Drug Allergy documented on EMR Reaction Allergy Type Onset Date Status citalopram CeleXA Unknown Drug Allergy Active cephalexin Cephalexin Unknown Drug Allergy Activ e Reason For Referral No Information Medications Medication SIG (Take, Route, Frequency, Duration) Notes Start Date End Date Status FeroSul 325 (65 Fe) MG Tablet TAKE 1 TABLET BY MOUTH DAILY Oral; Duration: 30 Days Active Vitamin D3 125 MCG (5000 UT) Tablet Oral; Duration: 30 Days Acti ve lamoTRIgine 200 MG Tablet TAKE 1 TABLET BY MOUTH DAILY Oral; Duration: 30 Days Active Gabapentin 300 MG Capsule Oral; Duration: 30 Days Active Pantoprazole Sodium 20 MG Tablet Delayed Release TAKE 1 TABLET BY MOUTH TWICE DAILY Oral; Duration: 30 Days Active Vitamin C 500 MG Tablet TAKE 1 TABLET BY MOUTH TWICE DAILY Oral; Duration: 30 Days Active Ozempic (0.25 or 0.5 MG/DOSE) Active CeleBREX 50 MG Capsule 1 capsule Orally Once a day Active FLUoxetine HCl 60 MG Tablet Oral; Duration: 30 Days Active Rizatriptan Benzoate 10 MG Tablet 1 tablet Orally Once a day Active Famotidine 40 MG Tablet TAKE 1 TABLET BY MOUTH DAILY Oral; Duration: 30 Days Active SUMAtriptan Succinate 100 MG Tablet 1 tablet as needed, may take second dose at least 2 hours after first dose up to 2 tablets per day as needed Orally Once a day Active Mounjaro 2.5 MG/0.5ML Solution Auto-injector Subcutaneous; Duration: 28 Days Active Modafinil 200 MG Tablet 1 tablet in the morning Orally Once a day Active Vyvanse 70 MG Capsule Oral; Duration: 30 Days Active Sucralfate 1 GM Tablet 1 tablet on an em pty stomach Orally Twice a day Active Pioglitazone HCl 30 MG Tablet TAKE 1 TABLET BY MOUTH DAILY Oral; Duration: 30 Days Active Ergocalciferol Activ e traZODone HCl 50 MG Tablet Oral; Duration: 30 Days Active Fluticasone Propionate 50 MCG/ACT Suspension 1 spray in each nostril Nasally Twice a day Active Pravastatin Sodium 10 MG Tablet 2 tablets Orally Once a day Active Jardiance 25 MG Tablet TAKE 1 TABLET BY MOUTH DAILY Oral; Duration: 30 Days Active Rosuvastatin Calcium 10 MG Tablet TAKE 1 TABLET BY MOUTH DAILY Oral; Duration: 30 Days Active Montelukast Sodium 10 MG Tablet 1 tablet Orally Once a day Active Vitamin D3 125 MCG (5000 UT) Tablet TAKE 1 TABLET BY MOUTH DAILY Oral; Duration: 30 Days Active Diclofenac Sodium 75 MG Tablet Delayed Release TAKE 1 TABLET BY MOUTH TWICE DAILY Oral; Duration: 30 Days Active Unilet Lancet Active Triamcinolone Acetonide 40 MG/ML Suspension 1.6 mL Injection Active DHEA 25 MG Tablet as directed Orally Active oxyCODONE-Acetaminophen 5-325 MG Tablet TAKE 1 TO 2 TABLETS BY MOUTH EVERY 6 HOURS NEEDED FOR PAIN FOR 4 DAYS Oral; Duration: 4 Days Active Social History Section Notes: Nonsmoker. No alcohol use. Encounters Encounter Location Date Provider Diagnosis [facility] [employer] [address] [address] 09/01/2024 Adam Yung Closed avulsion fracture of distal end of right fibula, initial encounter S82.831A ; Sprain of anterior talofibular ligament of left ankle, initial encounter S93.492A and Sprain of anterior talofibular ligament of right ankle, initial encounter S93.491A [employer] [address] [address] 09/29/2024 Adam Evenschamp Sprain of anterior talofibular ligament of right ankle, initial encounter S93.491A ; Arthritis of left ankle M19.072 ; Other specified disorders of bone density and structure, unspecified site M85.80 and Sprain of anterior talofibular ligament of left ankle, initial encounter S93.492A Assessments Encounter Date Diagnosis (ICD Code) Assessment Notes Treatment Notes Treatment Clinical Notes Section Notes 09/01/2024 Sprain of anterior talofibular ligament of left ankle, initial encounter (ICD-10 - S93.492A) Persistent left ankle pain following falls. X-rays already performed but unavailable for review today. Further evaluation needed due to ongoing symptoms. - New weight bearing left ankle xrays ordered. - Ordered CT of the left ankle for further evaluation. 09/01/2024 Closed avulsion fracture of distal end of right fibula, initial encounter (ICD-10 - S82.831A) Persistent right ankle pain and swelling following multiple falls, with history of fracture and ligament tears. Physical therapy not yet initiated for ankles. Patient uses boot, ankle braces, and ice packs for symptom management. - Discussed transition from boot to lace-up ankle brace as tolerated. - Recommended physical therapy for right ankle rehabilitation. 09/29/2024 Sprain of anterior talofibular ligament of right ankle, initial encounter (ICD-10 - S93.491A) Chronic severe pain in both ankles, described as worse than recent surgical site. Pain is concentrated in the ball and outside of both ankles, with a ripping sensation. Difficulty weight bearing, requiring braces and prosthetic for ambulation. History of avulsion fracture and prior injuries. Pain limits ability to work and perform daily activities. Imaging reviewed, showing old avulsion fracture and no need for surgery at this time. - Referral to physical therapy for bilateral ankle pain and instability. - Recommend use of braces for support during activity and at night. - Encourage continuation of home exercises as tolerated. 09/29/2024 Arthritis of left ankle (ICD-10 - M19.072) Arthritis noted on imaging of the ankles. Patient aware of diagnosis and experiencing chronic symptoms. Pain and stiffness contribute to functional limitations. - Continue conservative management with physical therapy and braces. - Monitor for progression of symptoms. 09/29/2024 Other specified disorders of bone density and structure, unspecified site (ICD-10 - M85.80) Osteopenia noted by radiologist, likely related to disuse from limited mobility. Patient inquires about benefit of Prolia shots for bone health. Patient is on estrogen and DHEA. Plans to discuss further management and necessary blood work with PCP or OBGYN. - Recommend discussion with primary care provider or OBGYN regarding Prolia and necessary blood work. 09/01/2024 Sprain of anterior talofibular ligament of right ankle, initial encounter (ICD-10 - S93.491A) MRI obtained on 07/26/24 reviewed and radiologist reports grade 3 sprain of ATFL as well as sprain of deltoid ligaments and peroneal tendinitis. No osteochondral defect. 09/29/2024 Sprain of anterior talofibular ligament of left ankle, initial encounter (ICD-10 - S93.492A) X-rays and CT ordered at last visit were reviewed with her which demonstrates remote avulsion fractures of the lateral and medial malleolus as well as healed De La Vega C fibular fracture with associated callus formation. Tibiotalar joint DJD is notable. Given all of her medical issues for which she is undergoing treatment for I do not believe she is a good surgical canidate at this time in addition she has not even made a PT appointment yet. Plan Of Treatment No Information Insurance Providers Payer Name Payer Address Payer Phone Subscriber Number Group Number Insured Name Patient Relationship to Insured Coverage Start Date Coverage End Date Medicaid [place] [address] [facility] [address] [phone] [id number] Karma Wilson Self - patient is the insured Medical (General) History Medical History History ICD Code Arthritis Asthma Depression/Anxiety Anemia Cervical Cancer Bipolar ADHD Type II Diabetes Chronic Neck & Back Pain Osteopenia Surgical History Surgery Date(Month/Year) Right Shoulder Left Foot Gallbladder Lower Back Disc Sinus tonsillectomy
--- OUTSIDE RECORDS SUMMARY | 2024-12-01 13:18 | XMS_ITS | Encounter Summary ---
Author Organization [facility] tem Address [id number] [address] [place] [address] Care Team Providers Care Director Cost Name Role Phone Services, [facility] Primary Care Provider Reason for Visit * Reason Comments Med Refill Encounter Details Date Type Department Care Team (Late st Contact Info) Description 12/04/2021 Refill [facility] [address] [place] [phone] [place] Al[place], [place] [address] [facility] 2[address] [place], [place] [id number] Social History Tobacco Use Types Packs/Day Years [...] requests. The patient must contact our office. [phone] documented in this encounter Plan of Treatment Not on file documented as of this encounter Visit Diagnoses Not on filedocumented in this encounter Additional Health Concerns Assessment Noted Time PHQ-9 Depression Total Score: 0 05/03/19 21 3:00 PM EST A Body Mass Index follow-up plan has been documented for the patient 02/10/2020 2:00 PM EST documented as of this encounter Care Teams Director Cost Relationship Specialty Start Date End Date Services, [facility] [address] [place], [place] PCP - General Family Medicine 10/05/23 documented as of this encounter
--- OUTSIDE RECORDS SUMMARY | 2024-12-01 13:18 | XMS_ITS | Clinical Summary ---
Author Organization [facility] Address [address] [place] [address] Care Team Providers Care Marble Polisher Name Role Phone Loreto Mcneal Primary Care Provider Allergies Active Allergy Reactions [...] Comments, Unknown palpitations Other Reaction(s): Palpitations, anaphylaxis Citalopram Hydrobromide Other 07/14/2013 palpitations Poison Devorah Extract Unknown 04/15/2022 Medications Mounjaro 2.5 mg/0.5 mL pen injector [...] 30 tablet 11 09/16/19 25 026 Active albuterol 90 mcg/actuation inhaler Inhale 2 puffs if needed each day. 07/17/19 21 Active fexofenadine (Ros) 180 mg tablet Take 180 mg by mouth in the morning. Active Active Problems Problem Noted Date Diagnosed Date ADHD (attention deficit hype ractivity disorder), combined type 11/23/2024 Bipolar affective disorder, currently manic, mod erate 11/23/2024 Bipolar disorder, current episode mixed, moderat e 11/23/2024 Chronic pain 11/23/2024 Circadian rhythm sleep disorder, shift work type 11/23/2024 Impulse control disorder 11/23/2024 Nausea 11/23/2024 Post-traumatic osteoarthritis, left ankle and fo ot 11/23/2024 Secondary localized osteoarthrosis of ankle and foot 11/23/2024 Ureteral stone with hydronephrosis 11/15/2024 Other osteoporosis without current pathological fracture 11/02/2024 Hyperlipidemia, unspecified 02/11/2024 Type 2 diabetes mellitus with hyperglycemia 01/30 Vitamin D deficiency, unspecified 02/11/2024 Macromastia 10/08/2023 Mass of upper outer quadrant of right breast 04/2023 Symptomatic mammary hypertrophy 06/02/2023 Well woman exam with routine gynecological exam 05/25/2023 Anemia 03/10/2023 Asthma 03/10/2023 Bilateral foot pain 03/10/2023 Chronic rhinitis 03/10/2023 Diverticulitis 03/10/2023 Obesity 03/10/2023 Recurrent epistaxis 03/10/2023 Disorder of sacrum 01/29/2023 Intervertebral disc 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 12/02/2022 Axillary lymphadenopathy 05/10/2020 Disc displacement, lumbar 10/11/2018 Overview (11/23/2024): Added automatically from request for surgery [id number] Lumbosacral spondylosis without myelopathy 07/22 Overview (11/23/2024): Added automatically from request for surgery [id number] Posttraumatic stress disorder 06/16/2018 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 Cervical disc displacement 09/21/2017 Acute cholecystitis 09/15/2016 Encounters Date Type Department Care Team Description 11/23/2024 11:00 AM EDT Office Visit [facility] [address] [place] [phone] Gautam Lunsford MD Pre-op evaluation (Primary Dx); Precordial chest pain 11/23/2024 Orders Only [place] [address] [place] [address] Torie Jimenez MA Other chest pain (Primary Dx); Pre-op evaluation 09/15/2024 Telephone [facility] [address] [place] [address] Peyton Bloom MA from Last 3 Months Family History Medical History Relation Name Comments Wegeners Father Diabetes Mother Hyperlipidemia Mother Relation Name Status Comments Father Mother Alive Social History Tobacco Use Types Packs/Day [...] Heterosexual or Straight 10/31 3:57 PM EDT Last Filed Vital Signs Vital Sign Reading [...] Mass Index 40.03 11/23/2024 10:58 AM EDT Plan of Treatment Health Maintenance [...] Completed 05/25/2023, 12/22/2022, 06/23/2022 Influenza Vaccine Completed 11/21/2024, , 12/22/2022, Additional history exists HIB Vaccines Aged Out [...] Routine 11/23/2024 10:52 AM EDT Pre-op evaluation from Last 3 Months Results * ECG 12 lead unit performed (11/23/2024 10:52 AM EDT) us Gautam Lunsford MD ECG ORDERABLES Final Resu lt from Last 3 Months Insurance [facility] MEDICAID Care Teams Marble Polisher Relationship Specialty Start Date End Date Loreto Mcneal Param KLINE PCP - General 03/30/24
--- OUTSIDE RECORDS SUMMARY | 2024-12-01 13:18 | XMS_ITS | Patient Health Record ---
Author Organization [facility] es Address [address] [place] [address] Care Team Providers Care Stone Derrickman And Rigger Name Role Phone Chinyere Calix Primary Care Provider [phone] Katharine [place] Unavailable [phone] Allergies Allergen (clinical drug ingredient) Drug/Non Drug Allergy documented on EMR Reaction Allergy Type Onset Date Status citalopram Celexa Unknown Drug Allergy Active Keflex Unknown Drug Allergy Active Results Component Value Reference Range Notes Glucose Poct Glucometers Reviewed date:08/21/2024 11:22:47 AM Interpretation: Performing Lab:, [facility], [address] [place] Notes/Report: Glucose Poc Glucometers 85 Random Glucose Reference Range is dependent on time and content of last meal. Glucose of more than 200 mg/dL in a nonstressed, ambulatory subject supports the diagnosis of Diabetes Mellitus. Glucose Poct Glucometers Reviewed date:08/21/2024 11:22:42 AM Interpretation: Performing Lab:, [facility], [address] [place] Notes/Report: Glucose Poc Glucometers 136 Random Glucose Reference Range is dependent on time and content of last meal. Glucose of more than 200 mg/dL in a nonstressed, ambulatory subject supports the diagnosis of Diabetes Mellitus. HCG,Urine Reviewed date:08/21/2024 11:22:54 AM Interpretation: Performing Lab:, [facility], [address] [place] Notes/Report: HCG Qualitative,Urine Negative Reason For Referral No Information Medications Medication [...] Problem Attention deficit hyperactivity disorder, combined type (18829657) ADHD (attention deficit hyperactivity disorder), combined type (F90.2) Active confirmed Problem Posttraumatic stress disorder (27547180) PTSD (post-traumatic stress disorder) (F43.10) Active confirmed Problem Mixed bipolar affective disorder, moderate (959960174) Bipolar 1 disorder, mixed, moderate (F31.62) Active confirmed Vital Signs Heart Rate 90 /min 12/28/2023 Temperature 98.6 degrees Fahrenheit 12/28/2023 Oximetry 97 % 12/28/2023 Height 63 in 03/28/2024 Weight 220 lbs 03/28/2024 BMI 38.97 kg/m2 03/28/2024 Encounters Encounter Location Date Provider Diagnosis [facility] [address] [place] [address] 01/14/2024 [place] [address] [place] [address] 02/10/2024 [place] [address] [place] [address] 03/07/2024 [facility] [address] [place] [address] 03/30/2024 [place] [address] [place] [address] 06/13/2024 [place] [address] [place] [address] 06/22/2024 [place] [address] [place] [address] 07/19/2024 [facility] [place] [address] [place] [address] 08/16/2024 Chinyere Calix Bipolar 1 disorder, mixed, moderate F31.62 [place] [address] [place] [address] 08/16/2024 Chinyere Calix Bipolar 1 disorder, mixed, moderate F31.62 [facility] [address] [place] [address] 12/28/2023 Chinyere Calix Bipolar 1 disorder, mixed, moderate F31.62 ; ADHD (attention deficit hyperactivity disorder), combined type F90.2 and PTSD (post-traumatic stress disorder) F43.10 [facility] [address] [place] [address] 06/13/2024 Chinyere Calix Bipolar 1 disorder, mixed, moderate F31.62 ; ADHD (attention deficit hyperactivity disorder), combined type F90.2 and PTSD (post-traumatic stress disorder) F43.10 [facility] [address] [place] [address] 09/20/2024 Chinyere Calix Bipolar 1 disorder, mixed, moderate F31.62 ; ADHD (attention deficit hyperactivity disorder), combined type F90.2 and PTSD (post-traumatic stress disorder) F43.10 [facility] [address] [place] [address] 03/28/2024 Chinyere Calix Bipolar 1 disorder, mixed, moderate F31.62 ; ADHD (attention deficit hyperactivity disorder), combined type F90.2 and PTSD (post-traumatic stress disorder) F43.10 Assessments Encounter Date Diagnosis (ICD Code) Assessment Notes Treatment Notes Treatment Clinical Notes Section Notes 12/28/2023 ADHD (attention deficit hyperactivity disorder), combined [...] increasing protein as appropriate. Discussed referral to drying machine receiver if problem persists. . . Continue current [...] increasing protein as appropriate. Discussed referral to drying machine receiver if problem persists. . . Continue current [...] increasing protein as appropriate. Discussed referral to drying machine receiver if problem persists. . . Continue current [...] increasing protein as appropriate. Discussed referral to drying machine receiver if problem persists. . . Continue current [...] 04:30:00 PM, [address], [place], [address], Provider Name:Chinyere Calix, 03/27/2025 03:30:00 PM, [address], [place], [address], Insurance Providers Payer Name Payer Address Payer Phone Subscriber Number Group Number Insured Name Patient Relationship to Insured Coverage Start Date Coverage End Date [employer] [place] Medicaid [address] CLAIMS DEPT [facility] [place] [address] [phone] [id number] PEE BECK Self - patient is the insured 3 [facility] [address] [place] [address] [id number] GODFREY PERRY, PEE Self - patient is the insured 3 [facility] ed 22. [address] CLAIMS DEPT [facility] [place] [address] [id number] ROSE-TE LL, PEE Self - patient is the insured [address] [facility] BUCKEYE-ter med 22 [address] CLAIMS DEPT [facility] [place] [address] [id number] GODFREY LL, PEE Self - patient is the insured 1 3 [employer] MEDICAID [employer] after [place]UCKEYE-ter med 22 [address] [place] [address] [id number] GODFREY PERRY, PEE Self - patient is the insured 1 3 Medical (General) History Medical History History ICD Code bipolar PTSD ADHD Surgical History Surgery Date(Month/Year) nasal surgery leg surgery back surgery ankle surgery Hospitalization History Reason Date(Month/Year) Rotator cuff surgery 05/15/22
--- OUTSIDE RECORDS SUMMARY | 2024-12-01 13:18 | XMS_ITS | Encounter Summary ---
Author Organization [facility] Address [address], [address] [place] [address] Care Team Providers Care Wig Comber Name Role Phone FredisJennyLoretofer HYLTON - SAMPLE TAILOR Primary Care Prov ider Reason for Visit * Reason Onset Date Comments Results 11/15/2024 Encounter Details Date Type Department Care Team (Late st Contact Info) Description 11/15/2024 Results Follow-Up [facility] [place] [address] Georges [place], LUIZC [address] [place] [id number] Results Social History Tobacco Use Types Packs/Day Years [...] Description 12/29/2024 11:00 AM EDT Office Visit [facility] UROLOG[facility] Part of [address] [place] [address] Yudi Gomez, WAITER/WAITRESS TAVERN - STAFFING ADMINISTRATOR [address] [place] [address] [address] [place] [address] 6w KUB documented as of this encounter Visit Diagnoses Not on filedocumented in this encounter Care Teams Wig Comber Relationship Specialty Start Date End Date Loreto Mcneal APRN - SAMPLE TAILOR [address] [facility] [place] [address] PCP - General 11/11/23 documented as of this encounter
--- OUTSIDE RECORDS SUMMARY | 2024-12-01 13:18 | XMS_ITS | Encounter Summary ---
Author Organization [facility] [employer] Address [id number] [address] [place] [address] Care Team Providers Care Night Assistant Name Role Phone Services, [facility] Primary Care Provider Reason for Visit * Reason Comments Med Refill Encounter Details Date Type Department Care Team (Late st Contact Info) Description 06/11/2017 Refill [facility] [address] [place] [address] [place] [address] Francia High, STREET SPRINKLER-CYLINDER STEAMER [address] [place], [place] [id number] Social History Tobacco Use Types Packs/Day Years [...] documented as of this encounter Care Teams Night Assistant Relationship Specialty Start Date End Date Services, [place] [id number] [place], [place] PCP - General Family Medicine 10/05/23 documented as of this encounter
--- OUTSIDE RECORDS SUMMARY | 2024-12-01 13:19 | XMS_ITS | Encounter Summary ---
Author Organization [facility] Address [address] [facility] [place] [address] Care Team Providers Care Solar Sales Representative Name Role Phone Loreto Mcneal APRN - JO ANN Primary Care Prov ider Encounter Details Date Type Department Care Team (Late st Contact Info) Description 11/11/2024 Results Follow-Up [facility] UROLOG[facility] Part of [address] [place] [address] Yudi Gomez, NEUROLOGY MANAGER - SENIOR FINANCIAL REPORTING ANALYST [address] [place] [address] Dr [address] [place] [address] Social History Tobacco Use Types [...] more drinks on one occasion? Never 10/05/2023 Interpersonal Safety Domain Source: IP Abuse Scr eening Answer Date Recorded Physical abuse Denies 11/15/2024 Verbal abuse Denies 11/15/2024 Emotional abuse Denies 11/15/2024 Financial abuse Denies 11/15/2024 Sexual abuse Denies 11/15/2024 Comments No Sex and Gender Information Value Date Recorded Sex Assigned at Not on file Legal Sex Female 2:04 PM EST Gender Identity Not on file Sexual Orientation Not on file documented as of this encounter Plan of Treatment Upcoming Encounters Date Type Department Care Team (Late st Contact Info) Description 12/29/2024 11:00 AM EDT Office Visit [facility] UR[facility] Part of [address] [place] [address] Yudi Gomez, NEUROLOGY MANAGER - SENIOR FINANCIAL REPORTING ANALYST [address] [place] [address] Dr [address] [place], [place] [phone] 6w KUB documented as of this encounter Visit Diagnoses Not on filedocumented in this encounter Care Teams Solar Sales Representative Relationship Specialty Start Date End Date Loreto Mcneal APRN - ROD POINTER [address] [place] [address] PCP - General 11/11/23 documented as of this encounter
--- OUTSIDE RECORDS SUMMARY | 2024-12-01 19:18 | XMS_ITS | CCD ---
Author Organization [facility] Care Team Providers Care Mica Plate Layer Hand Name Role Phone Juan Ramon Jean Unavailable [...] Reis Attending Unavailable HIGHLANDERJOY Consulting Unavailable SHAMMO, LUZ MARIA Admitting Unavailable SHAMMO, LUZ MARIA Attending Unavailable SHAMMO, LUZ MARIA Consulting Unavailable MISC, DR TRAORE Primary Care Unavailable MISC, DR TRAORE Primary Care Unavailable MISC, DR TRAORE Admitting Unavailable MISC, DR TRAORE Attending Unavailable MISC, DR TRAORE Consulting Unavailable Jan Garg Unavailable DOMENICA OLIVA Primary Care Physician HILARY GRANADO Referring Unavailable HILARY GRANADO Attending Unavailable Shawna Mcfadden DO Primary Care Provider MD Yo Blank Attending Provider DO Shawna Mcfadden Primary Care Provider BOGDAN SHAWNA K Referring Unavailable RUMSCHLAG, SHAWNA K Primary Care Unavailable RUMSCHLAG SHAWNA K Referring Unavailable RUMSCHLAG, SHAWNA K Primary Care Unavailable KULICK, DEEPIKA A Attending Unavailable JORGE, LISA Referring Unavailable RUMSCHLAG, SHAWNA K Primary Care Unavailable DWAYNE KHOURY Attending Unavail able RUMSCHLAG, SHAWNA K Referring Unavailable SERVICES, [facility] Unava ilable Fredis [facility] - [facility], Davie [facility] ider SERVICES, [facility] Primary Care Unava ilable SHAMMO, LUZ MARIA Referring Unavailable RUMSCHLAG, SHAWNA K Primary Care Unavailable SHAMMO, LUZ MARIA Referring Unavailable RUMSCHLAG, SHAWNA K Primary Care Unavailable SILVERZAC Attending Unavailable SILVER, ZAC E Referring Unavailable RUMSCHLAG, SHAWNA K Primary Care Unavailable SILVERZAC E Admitting Unavailable SILVERZAC E Attending Unavailable RUMSCHLAG, SHAWNA K Referring Unavailable RUMSCHLAG, SHAWNA K Primary Care Unavailable JORGE, LISA Referring Unavailable SERVICES, [facility] Primary Care Unava ilable GAURAV SELLERS Attending Unavailable RUMSCHLAG, SHAWNA K Referring Unavailable RUMSCHLAG, SHAWNA K Primary Care Unavailable Zully FIRST DYER, Key Unavailable Rumschlag DO, Shawna Primary Care Provider Shammo [facility]-, Luz Maria T Primary Care Provider Mio Marroquin DO Attending Provider Unavailab le Rumschlag DO, Shawna K Primary Care Provider Services, [facility] Primary Care Provider Sasha Santos DO Unavailable Shammo [facility], Luz Maria T Primary Care Provider Mio Marroquin DO Attending Provider Unavailab Shira Crowley DO Attending Provider [phone] Davie Mcneal APRN Primary Care Provide r Shira Cardoso DO Unavailable [phone] ANA PAULA INGRAM Admitting Unavailable ANA PAULA INGRAM Attending Unavailable SERVICES, [facility] Primary Care Unava ilable Services, [facility] Primary Care Provider Jan Garg APRN Attending Provider Davie Mcneal Primary Care Unavailab le Shira Cardoso Admitting Unavailable Angel, Shira Attending Unavailable Mio Marroquin Admitting Unavailable Mio Marroquin Attending Unavailable ShamLuz Maria vela Primary Care Unavailable Myeroziel, Davie K Primary Care Unavailab le Flacoedmiranda, Shira Admitting Unavailable Angel, Shira Attending Unavailable Angel, Shira Admitting Unavailable Biedmiranda, Shira Attending Unavailable Myeroziel, Davie K Primary Care Unavailab le Myeroziel [place], Davie Chase Primary Care Provide r Shira Cardoso DO Attending Provider Sasha Santos DO Attending Provider Bk DALE, Ugo Stoddard Attending Unavailable Giedraitis , Andmelisa Stoddard Attending Unavailable Gieditis , Andrius Arlyn Attending Unavailable Giedraitis , Andrius Vytosmar Attending Unavailable Tremains , Ana Paula Powers Attending Unav ailable Gimansoor DALE, Andmelisa Stoddard Attending Unavailable CLEO ZAMBRANO Attending Unavailable CLEO ZAMBRANO F Referring Unavailable ROEL GARBER Attending Unavailable SHIRA CARDOSO Attending Unavailable SASHA SANTOS Attending Unavailable ROEL GARBER Attending Unavailable SHIRA CARDOSO Attending Unavailable ROEL GARBER Attending Unavailable ROEL GARBER Attending Unavailable CLEO ZAMBRANO Attending Unavailable SHIRA CARDOSO Attending Unavailable SASHA SANTOS Referring Unavailable SHIRA CARDOSO Attending Unavailable SASHA SANTOS Referring Unavailable SHIRA CARDOSO Attending Unavailable SHIRA CARDOSO Attending Unavailable ROEL GARBER Attending Unavailable BRITTANY NEVILLE Attending Unavailable SHIRA CARDOSO Attending Unavailable Myerholbrayan H[place], Davie Chase Primary Care Provide r Shira Cardoso DO Attending Provider Jan Garg APRN Attending Provider CARLOS ENRIQUE SANCHEZ Referring Unavailab DAVID Crawford Attending Unavailable MARTIR STOVALL Admitting Unavailable MARTIR STOVALL Attending Unavailable MYERHOLTZ, DAVIE Primary Care Unavailable RUMSCHLAG, SHAWNA Referring Unavailable MYERHOLTZ, DAVIE Primary Care Unavailable RUMSCHLAG, SHAWNA Referring Unavailable MYERHOLTZ, DAVIE Primary Care Unavailable RUMPARKER, SHAWNA Referring Unavailable MYERHOLTZ, DAVIE Primary Care Unavailable MARTIR STOVALL Referring Unavailable MYERHOLTZ, DAVIE Primary Care Unavailable MYERHOLTZ, DAVIE Primary Care Unavailable LUCAS PERKINS Referring Unavailable RUMSCHLAG, SHAWNA Referring Unavailable MYERHOLTZ, DAVIE Primary Care Unavailable RUDDY VALENCIA Referring Unavailable MYERHOLTZ, DAVIE Primary Care Unavailable MYERHOLTZ, DAVIE Primary Care Unavailable MARTIR STOVALL Referring Unavailable MYERHOLTZ, DAVIE Primary Care Unavailable MYERHOLTZ, DAVIE Primary Care Unavailable BENJA WALKER Attending Unavailable MYERHOLTZ, DAVIE Primary Care Unavailable TIRSO JUNIOR Attending Unavailable KENZIE VASQUEZ Referring Unavailable CARLOS ENRIQUE JACKSON Attending Unavailable KENZIE VASQUEZ Attending Unavailable Allergies Allergy Classification Reported Allergen(s) Allergy Type Date of Onset Reaction(s) Facility Cephalosporins (antibiotic) (2 sources) Cephalexin Drug Allergy 09-14-19 17 [facility] Serotonin Reuptake Inhibitors (SSRIs) (2 sources) Citalopram Drug Allergy 09-14-19 17 [facility] (20 sources) cephalexin; Translations: [Keflex] Drug Allergy 07-08-19 13 [facility] Repository (5 sources) citalopram; Translations: [CeleXA] Drug Allergy 07-08-19 13 [facility], heart palpitation [facility] Repository (20 sources) Cephalexin; Translations: [CEPHALEXIN] Drug Allergy 07-15-19 14 [facility] Work Phone: (20 sources) Citalopram; Translations: [CITALOPRAM] Drug Allergy 07-15-19 14 [facility], anaphylaxis [facility] (5 sources) metFORMIN Drug Allergy Unknown [facility] Other (20 sources) metFORMIN; Translations: [METFORMIN] Drug Allergy 04-15-19 Unknown, Unknown Reaction, hypoglycemia [facility] Repository Comment on above: bottoms out to unde r 40 (20 sources) Metformin And Related Propensity to adverse reactions to drug 04-20-19 Other (See Comments) [facility] (20 sources) POISON DEVORAH EXTRACT; Translations: [POISON DEVORAH EXTRACT] Propensity to adverse reactions to drug (disorder) 04-15-19 [facility] Repository (1 source) Cephalexin Drug Allergy 08-11-19 [facility] Repository (1 source) Citalopram Drug Allergy 08-11-19 [facility] Repository (1 source) metFORMIN Drug Allergy 08-11-19 [facility] Repository (2 sources) Citalopram; Translations: [CITALOPRAM HYDROBROMIDE] Drug Allergy 07-15-19 [facility] Repository (1 source) BIGUANIDES; Translations: [BIGUANIDES] Propensity to adverse reactions to drug (disorder) 04-15-19 [facility] Repository Medications Current Medications Medication Drug Class(es) Dates Sig (Normalized) Sig (Original) acetaminophen 325 mg / HYDROcodone bitartrate 5 mg oral tablet (7 sources) Opioid Agonist Start: 08-10-2024 take 1 tablet by mouth every six hours as needed for pain Hydrocodone-Acetam inophen 5-325 mg tablet Active 1 TAB PO Every 6 hours as needed for pain 14 7 September 21, 2024 Complies with drug therapy acetaminophen 325 mg / oxyCODONE hydrochloride 5 mg oral tablet (4 sources) Opioid Agonist Start: 09-21-2024 End: 11-20-2024 oxyCODONE-acetamin ophen (PERCOCET) 5-325 MG per tablet Indications: Flank pain Take 1 tablet by mouth every 6 hours as needed for Pain for up to 3 days. Intended supply: 3 days. Take lowest dose possible to manage pain Max Daily Amount: 4 tablets 12 tablet 11/17/2024 11/20/2024 Active [id number] 200 actuat albuterol 0.09 mg/actuat metered dose [...] PRN Ac tive Albuterol 90 mcg/actuation aerosol (6 sources) Start: 07-27-2024 take 90 ug by [...] needed for wheezing July 27, 2024 12:00am Jonathan Allergy 180 MG (6 sources) take 1 tablet by mouth once daily Jonathan Allergy 180 MG 1 tablet Swallow whole with water; do not take with fruit juices. Orally Once a day Active ascorbic acid 500 mg chewable tablet (20 sources) Vitamin C Start: 02-24-2023 take 1 tablet by mouth in the morning ascorbic acid (Vitamin C) 500 MG tablet Take 500 mg by mouth in the morning and 500 mg before bedtime. 02/24/2023 Active Start: 02-24-2023 take 1 tablet by elan twice daily Ascorbic Acid (Vitamin C) (Vitamin C) 500 mg tablet Active 500 MG PO Twice daily May 21, 2023 10:20am Complies with drug therapy Start: 02-24-2023 End: 05-21-2023 take 1 tablet [...] by mouth Daily 04/20/2024 Active bifidobacterium animalis [id number] unt / lactobacillus acidophilus [id number] unt oral capsule (12 sources) take 1 capsule by mouth once daily probiotic (ALIGN/RISAQUAD) CAPS capsule Take 1 capsule by mouth daily ALIGN Active bifidobacterium infantis 4 mg oral capsule (20 sources) Start: 01-07-2023 End: 11-17-2024 take 1 capsule by mouth once daily Probiotic Product (Align) capsule Take 1 capsule by mouth Daily 02/16/2023 Active blood-glucose meter (TRUE METRIX GLUCOSE METER) misc (14 sources) Start: 06-17-2018 blood-glucose meter (TRUE METRIX GLUCOSE METER) misc use to test BLOOD SUGAR TWICE DAILY 1 each 06/17/2018 Active Start: 06-17-2018 blood-glucose meter (TRUE METRIX GLUCOSE METER) misc use to test BLOOD SUGAR TWICE DAILY 1 each 0 06/17/2018 Active Calcium Carbonate-Vit D-Min (Calcium 1200) 2238-5758 MG-UNIT chewable tablet (7 sources) Start: 11-02-2024 End: 11-02-2025 Calcium Carbonate-Vit D-Min (Calcium 1200) 5817-0292 MG-UNIT chewable tablet Indications: Osteopenia, unspecified location Chew 1,200 mg Daily 90 tablet 3 11/02/2024 11/02/2025 Active calcium chloride 0.0014 meq/ml / potassium chloride 0.004 meq/ml / sodium chloride 0.103 meq/ml / sodium lactate 0.028 meq/ml injectable solution (1 source) Start: 11-15-2024 IntraVENous, at 100 mL/hr, CONTINUOUS, Starting on Thu11/15/24 at 1530 cetirizine hydrochloride 10 mg oral tablet (20 [...] once daily cholecalciferol (Vitamin D-3) 50 MCG (2000 UT) capsule Take 2,000 Units by mouth Daily 02/24/2023 Active Start: 04-09-2021 take 1 capsule by mo ut in the morning cholecalciferol (Vitamin D-3) 50 MCG (2000 UT) capsule Take 2,000 Units by mouth in the morning. 02/24/2023 Active take 1 capsule by mo ut every twenty-four hours Vitamin D3 50 MCG (2000 UT) 1 capsule Orally Once a day Not-Taking/PRN CHOLECALCIFEROL, VITAMIN D3, ORAL (3 sources) Start: 04-09-2021 take 5000 [IU] by mouth [...] May 21, 2023 12:00am Start: 03-31-2023 End: 10-15-2023 take 1 capsule by mouth once daily Duloxetine 30 mg capsule,delayed release(DR/EC) Discontinued 30 MG PO Daily May 21, 2023 12:00am October 15, 2023 9:27am take 2 capsules by m outh in [...] 2 diabetes mellitus without complication, unspecified whether usp insulin use (HCC) Take 1 tablet (25 mg) by mouth Daily 30 tablet 2 08/04/2024 Active famotidine 40 mg oral tablet (20 sources) Histamine-2 Receptor Antagonist Start: 08-08-2024 take 1 tablet by mouth twice daily Famotidine 40 mg tablet Active 40 MG PO Twice daily 60 August 08, 2024 12:00am Complies with drug therapy Start: 05-20-2023 End: 11-02-2024 take 1 tablet by mouth once daily Famotidine 40 mg tablet Discontinued 40 MG PO Daily June 02, 2024 9:59am July 27, 2024 11:11am Start: 10-14-2018 take 1 tablet by elan th twice daily famotidine (PEPCID) 20 mg tablet TAKE 1 TABLET BY MOUTH TWICE DAILY 60 tablet 5 04/09/2020 Active take 2 tablets by mo uth once daily famotidine (PEPCID) 20 MG tablet Take 2 tablets by mouth daily Active 2 ml fentaNYL 0.05 mg/ml inj ection (2 sources) Opioid Agonist Start: 11-15-2024 Start: 11-15-2024 ferrous gluconate 256 mg oral tablet (3 sources) ferrous gluconat e (FERGON) 256 mg (28 mg iron) tablet Take 246 mg by mouth in the morning. Active ferrous sulfate 28 mg oral tablet (20 sources) Start: 11-02-2024 End: 11-02-2024 take 1 tablet by mouth at mealtime ferrous sulfate 28 MG tablet Indications: Other osteoporosis without current pathological fracture , Other iron deficiency anemia Take 1 tablet (28 mg) by mouth in the morning. Take with meals. 30 tablet 11 11/02/2024 Active Start: 07-27-2024 take 1 tablet by mouth once da dionna Ferrous Sulfate (Slow Release Iron) 140 mg (45 mg iron) tablet extended release Active 140 MG PO Daily July 27, 2024 12:00am Complies with drug therapy Start: 04-09-2020 take 1 tablet by mouth once da dionna ferrous sulfate 325 (65 FE) mg tablet TAKE 1 TABLET BY MOUTH DAILY 30 tablet 5 04/09/2020 Active fexofenadine hydrochloride 180 mg oral tablet (20 sources) Histamine-1 Receptor Antagonist Start: 02-24-2023 take 1 tablet by mouth once daily fexofenadine (Jonathan) 180 MG tablet Take 180 mg by mouth Daily 02/24/2023 Active take 1 tablet by mouth in the mo rning fexofenadine (JONATHAN) 60 mg tablet Take 1 tablet (60 mg total) by mouth in the morning. Active fluconazole 150 mg oral tablet (6 sources) Azole Antifungal Start: 07-27-2024 take 1 [...] / neomycin 3.5 mg/ml / polymyxin b [id number] unt/ml otic solution (1 source) Aminoglycoside Antibacterial, Polymyxin-class Antibacterial, Corticosteroid Start: 10-22-2021 End: 10-29-2021 prmsxsqj-uuqtjgiej-jogafpwvg isone (CORTISPORIN) 3.5-86115-[address] 4 drops into the left ear 3 times daily for 7 days Instill into left Ear TID x 7 days 10 mL 0 10/22/2021 10/29/2021 Active hydrOXYzine hydrochloride 25 mg oral tablet (20 sources) Antihistamine Start: 10-21-2017 take 1 tablet by mouth every four hours as needed hydrOXYzine (ATARAX) 25 MG tablet Take 1 tablet by mouth every 4 hours as needed for Itching 30 tablet 1 10/21/2017 Active ibuprofen 600 mg oral tablet (20 sources) Nonsteroidal Anti-inflammatory Drug Start: 11-15-2024 take 1 tablet by mouth every six hours ibuprofen (ADVIL;MOTRIN) 600 MG tablet Take 1 tablet by mouth every 6 hours 30 tablet 11/15/2024 Active Start: 03-20-2018 take 1 tablet by elan th four times daily as needed for pain [...] as needed Orally every 8 hrs Not-Taking/PRN lactobacillus acidophilus [id number] unt oral capsule (2 sources) Start: 10-11-2024 Lactobacillus Acidophilus 500 million cell capsule Active 1000 MMU CELLS PO Daily 60 October 11, 2024 12:00am Complies with drug therapy lamoTRIgine 200 mg oral tablet (20 sources) Mood Stabilizer, Anti-epileptic Agent Start: 02-13-2019 take 1 tablet by mouth once daily in the morning Lamotrigine 200 mg tablet Active 200 MG PO Every morning May 20, 2023 12:00am Complies with drug therapy lansoprazole 30 mg delayed release oral capsule (20 sources) Proton Pump Inhibitor Start: 04-29-2024 End: 06-14-2024 take 1 capsule by mouth once daily lansoprazole (Prevacid) [address] capsule Take 30 mg by mouth Daily 05/19/2024 Active lidocaine 0.05 mg/mg medicated patch (6 sources) Antiarrhythmic, Amide Local Anesthetic Start: 07-27-2024 apply 1 dose topically once daily as needed for pain Lidocaine 5 % adhesive patch,medicated Active 1 PATCH TOPICAL Daily as needed for pain July 27, 2024 12:00am Complies with drug therapy lisdexamfetamine dimesylate 70 mg oral capsule (20 sources) Central Nervous System Stimulant Start: 01-09-2022 take 1 capsule by mouth once daily Vyvanse 70 MG capsule Take 70 mg by mouth Daily 02/27/2023 Active 10 ml methocarbamol 100 mg/ml injection (20 sources) Muscle Relaxant Start: 10-14-2018 Robaxin 100 [...] 07/16/2020 Active Mounjaro 2.5 MG/0.5ML solution auto-injector (20 sources) Start: 09-16-2024 Mounjaro 2.5 MG/0.5ML solution auto-injector Indications: 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, 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 12/26/2022 Active zaydwhsp-vsxg-GH-calcium &mi ns (THERAGRAN-M) 9 mg iron-400 mcg tablet (14 sources) eupzafpg-jwqz-AR -calcium &mins (THERAGRAN-M) 9 mg iron-400 mcg tablet Take 1 tablet by mouth in the morning. Active hgsspyly-pdnz-OF -calcium &mins (THERAGRAN-M) 9 mg iron-400 mcg tablet Take 1 tablet by mouth in the morning. 0 Active Multivitamin preparation (20 sources) Multivitamin Act amaury Multivitamin With Folic Acid (Daily-Karely (With Folic Acid)) 400 mcg tablet (9 sources) Start: 05-20-2023 take 1 tablet by mouth once daily in the morning Multivitamin With Folic Acid (Daily-Karely (With Folic Acid)) 400 mcg tablet Active 1 TAB PO Every morning May 20, 2023 12:00am Complies with drug therapy Start: 05-20-2023 take 1 tablet by elan th once daily in the morning Multivitamin [...] weeks NEEDED 15 g 2 03/03/2024 Active naloxone 0.4 mg in 10 mL sodium chloride syringe (1 source) Start: 11-15-2024 naproxen 500 mg oral tablet (20 sources) Nonsteroidal Anti-inflammatory Drug Start: 12-02-2022 take 1 tablet by mouth in the morning naproxen (Naprosyn) 500 MG tablet Take 500 mg by mouth in the morning and 500 mg in the evening. Take with meals. 12/02/2022 Active naproxen (NAPROS YN) 500 MG tablet Take 1 tablet by mouth as needed for Pain Active nitrofurantoin, macrocrystals 25 mg / nitrofurantoin, monohydrate 75 mg oral capsule (1 source) Nitrofuran Antibacterial Start: 11-16-2024 End: 11-21-2024 take 1 capsule by mouth twice daily nitrofurantoin, macrocrystal-monohydrate, (MACROBID) 100 MG capsule Take 1 capsule by mouth 2 times daily for 5 days 10 capsule 11/16/2024 11/21/2024 Active NON FORMULARY (20 sources) NON FORMULARY [...] 3 times a day 0 Active nystatin [id number] unt/ml topical cream (17 sources) Polyene Antifungal [...] (20 sources) Proton Pump Inhibitor Start: 08-08-2024 End: 11-17-2024 take 1 tablet by mouth twice daily Pantoprazole 20 mg tablet,delayed release (DR/EC) Active 20 MG PO Twice daily 60 30 November 17, 2024 9:24am Complies with drug therapy Start: 07-27-2024 take 1 tablet by elan [...] 2 diabetes mellitus without complication, 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) Take 1 tablet (30 mg) by mouth Daily 30 tablet 3 08/04/2024 Active polyethylene glycol 3350 [id number] mg / potassium chloride 2970 mg / sodium bicarbonate 6740 mg / sodium chloride 5860 mg / sodium sulfate 47590 mg powder for oral solution (2 sources) Osmotic Laxative Start: 03-17-2023 Golytely 236 GM 236 ml Orally 8 ounces every 15 minutes for 1 days PLEASE CHECK ALLERGIES Mar, Active prasterone (DHEA) (6 sources) Start: 07-27-2024 take 1 tablet by mouth once daily in the morning prasterone (DHEA) Active 1 TAB PO Every morning July 27, 2024 12:00am Complies with drug therapy Start: 07-27-2024 take 1 tablet by elan th once daily in the morning prasterone [...] Nausea, # 20 tab(s), Refills(s) 0, Pharmacy: [id number], [id number], cm, 03/10/19 12:21:00 EST, Height/Length [...] therapy Start: 01-16-2019 take 1 tablet by elan [...] therapy Start: 05-20-2023 take 1 tablet by elan th once daily Rosuvastatin 10 mg tablet Active 10 MG PO Daily May 20, 2023 12:00am take 1 tablet by elan th once daily rosuvastatin (CRESTOR) 20 MG tablet Take 1 tablet by mouth daily Active Rosuvastatin Leonardo cium Active 0.25 mg, 0.5 mg dose 1.5 ml semaglutide 1.34 mg/ml pen injector (20 sources) Start: 11-21-2024 End: 05-08-2025 inject 0.5 mg by subcutaneous injection every week semaglutide (Ozempic, 0.25 or 0.5 MG/DOSE,) 2 MG/1.5ML solution pen-injector Indications: 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, 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 01/15/2022 Active Start: 01-15-2022 semaglutide 1 mg/dose (2 mg/1.5 mL) pen injector Waiting for approval to take the 2mg dose not 1 dose 0 01/15/2022 Active Ozempic (0.25 or 0.5 MG/DOSE) 2 MG/1.5ML as directed Subcutaneous Not-Taking sulfamethoxazole 800 mg / trimethoprim 160 mg oral tablet (7 sources) Dihydrofolate Reductase Inhibitor Antibacterial, Sulfonamide Antimicrobial Start: 08-10-2024 End: 09-21-2024 take 1 tablet by mouth twice daily Sulfamethoxazole-Trimethoprim (Bactrim Ds) 800-160 mg tablet Active 1 TAB PO Twice daily 19 12September 21, 2024 12:00am Complies with drug therapy SUMAtriptan 100 mg oral tablet (20 sources) Serotonin-1b and Serotonin-1d Receptor Agonist Start: 11-02-2024 take 2 tablets by mouth once daily as needed Sumatriptan Succinate 100 mg tablet Active 100 MG PO .COMPLEX as needed for migraine headache 11 29November 02, 2024 11:38am 100 mg orally at the onset of a migraine. may repeat in 2 hours. no more than than 2 per day. no more than 2 days/week PRN; Complies with drug therapy Start: 06-20-2024 take 1 tablet by elan th once [...] 9 tablet 01/20/2024 02/19/2024 Active Start: 05-20-2023 End: 11-02-2024 take 1 tablet by mouth twice daily as needed for headache Sumatriptan Succinate 100 mg tablet Discontinued 100 MG PO Twice daily as needed for migraine headache May 20, 2023 12:00am November 02, 2024 11:39am Start: 11-03-2018 take 1 tablet by elan [...] Active tamsulosin hydrochloride 0.4 mg oral capsule (15 sources) alpha-Adrenergic Theodore Start: 11-15-2024 take 1 capsule by mouth once daily tamsulosin (FLOMAX) 0.4 MG capsule Take 1 capsule by mouth daily 30 capsule 11/15/2024 Active Start: 01-08-2024 take 1 capsule by mo [facility] once daily tamsulosin (Flomax) 0.4 MG 24 hr capsule Take 0.4 mg by mouth Daily 01/08/2024 Active temazepam 15 mg oral capsule (20 sources) Benzodiazepine take 1 capsule by mouth once daily as needed for sleep temazepam (RESTORIL) 15 MG capsule Take 15 mg by mouth nightly as needed for Sleep Active terbinafine 250 mg oral tablet (12 sources) Allylamine Antifungal Start: 01-21-20 take 1 tablet by mouth once daily terbinafine (LamISIL) 250 MG tablet Take 250 mg by mouth Daily 01/21/2024 Active 5000 mg testosterone 0.01 mg/mg topical gel (6 sources) Androgen Start: 07-28-19 Testosterone 50 mg/5 gram (1 %) gel Active 50 MG TRANSDERML Daily July 27, 2024 12:00am Complies with drug therapy Tirzepatide (6 sources) Start: 07-28-19 Tirzepatide (Mounjaro) 2.5 mg/0.5 mL pen injector Active 2.5 MG SUBCUT Once a week July 27, 2024 12:00am Complies with drug therapy Start: 07-27-2024 Tirzepatide (M ounjaro) 2.5 mg/0.5 mL pen injector Active 2.5 MG SUBCUT Once a week July 27, 2024 12:00am tirzepatide (MOUNJARO) 2.5 mg/0.5 mL pen injector (3 sources) tirzepatide (ELAN NJARO) 2.5 mg/0.5 mL pen injector Inject 2.5 mg under the skin every 7 days. 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) Inject 2.5 mg under the skin every 7 (seven) days 2 mL 3 04/11/2024 05/11/2024 Active Start: 04-07-2024 End: 05-07-2024 Tirzepatide (Mounjaro) 2.5 M G/0.5ML solution auto-injector Indications: 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, 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) Inject 2.5 mg under the skin every 7 (seven) days 2 mL 3 04/07/2024 05/07/2024 Active Tirzepatide (Mounjaro) 5 MG/0.5ML solution auto-injector (20 sources) Start: 08-04-2024 End: 11-02-2024 Tirzepatide (Mounjaro) 5 MG/0.5ML solution auto-injector Indications: 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, 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) Inject 5 mg under the skin every 7 (seven) days 6 mL 1 08/04/2024 11/02/2024 Active Start: 08-04-2024 End: 11-02-2024 Tirzepatide (Mounjaro) 5 MG/ 0.5ML solution auto-injector Indications: 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, unspecified whether [facility]p insulin use Inject 5 mg under the skin every 7 (seven) days 6 mL 1 08/04/2024 11/02/2024 Active topiramate 200 mg oral tablet (20 sources) take 1 tablet by mouth once daily topiramate (TOPAMAX) 200 MG tablet Take 1 tablet by mouth daily Active traMADol hydrochloride 50 mg oral tablet (20 sources) Opioid Agonist Start: 01-21-2023 take 1 tablet by mouth every twenty-four hours as needed traMADol (Ultram) 50 MG tablet Take 50 mg by mouth Daily as needed 01/21/2023 Active Ultram Active Trulance 3 MG (1 source) [...] Date: 10/14/18 Status: Ordered Vitamin B Complex (14 sources) Start: 01-16-2020 take 1 tablet by mouth once daily B COMPLEX-VITAMIN B12 tablet TAKE 1 TABLET BY MOUTH DAILY 30 tablet 5 01/16/2020 Active Vitamin B Complex (Vitamins B Complex) tablet (6 sources) Start: 07-27-2024 take 1 tablet by mouth once daily in the morning Vitamin B Complex (Vitamins B Complex) tablet Active 1 TAB PO Every morning July 27, 2024 12:00am Complies with drug therapy Start: 07-27-2024 take 1 tablet by elan th once daily in the morning Vitamin B Complex (Vitamins B Complex) tablet Active 1 TAB PO Every morning July 27, 2024 12:00am Vitamin D (13 sources) Vitamin D Active zonisamide 100 mg oral capsule (20 sources) Anti-epileptic Agent take 1 capsule by mouth once daily zonisamide (ZONEGRAN) 100 MG capsule Take 1 capsule by mouth daily Active Completed/Discontinued Medications Medication Drug Class(es) Dates Sig (Normalized) Sig (Original) docusate sodium 100 mg oral capsule (20 sources) Start: 01-07-2023 take 3 capsules by mouth every twenty-four hours Docusate Sodium 100 MG 3 CAPSULES Orally Once a day for 30 days Dec, Active Start: 01-07-2023 End: 11-17-2024 take 1 capsule by mouth three times daily Docusate Sodium 100 mg capsule Discontinued 100 MG PO Three times daily June 02, 2024 10:01am August 08, 2024 1:58pm Dulaglutide (11 sources) GLP-1 Receptor Agonist Start: 05-20-2023 End: [...] Refills(s) 0 Start Date: 10/14/18 Status: Ordered End: 11-02-2024 inject 68 mg by subcutaneous injection once etonogestrel-eluting (Nexplanon) 68 mg contraceptive implant Inject 68 mg under the skin 1 (one) time 11/02/2024 Discontinued Etonogestrel (Nexplanon) 68 mg implant (6 sources) [...] Take 3 capsules by mouth daily Active iopamidol (ISOVUE-370) 76 % injection 75 mL (1 source) Start: 11-17-2024 End: 11-17-2024 take 1 dose intravenously once 75 mL, IntraVENous, IMG ONCE PRN, 1 dose, Starting on Thu11/17/24 at 2205, Until Thu11/17/24 at 2206, Other Iron (20 sources) Iron Not-Taking/ PRN Iron Not-Taking Iron Active 1 ml ketorolac tromethamine 15 mg/ml cartridge (2 sources) Nonsteroidal Anti-inflammatory Drug, Cyclooxygenase Inhibitor Start: 11-17-2024 End: 11-17-2024 15 mg, IntraVENous, ONCE, 1 dose, On Thu11/17/24 at 2115 Start: 04-20-2023 End: 04-20-2023 ketorolac (TORADOL) injectio n 30 mg 100 ml levoFLOXacin 5 mg/ml injection (1 source) Quinolone Antimicrobial Start: 11-15-2024 End: 11-15-2024 take 1 dose intravenously every hour 500 mg, IntraVENous, LOCATION MANAGER TO O.R., 1 dose, On Thu11/15/24 at 1530, Antimicrobial Indications: Surgical Prophylaxis, Administer within 1 hour prior to incision., Pre-op (day of surgery) linaclotide 0.29 mg oral capsule (20 sources) Guanylate Cyclase-C Agonist Start: 05-21-2023 End: 11-17-2024 take 1 capsule by mouth once daily [...] Take 1 tablet by mouth daily Active 2 ml ondansetron 2 mg/ml injection (3 sources) Serotonin-3 Receptor Antagonist Start: 11-17-2024 End: 11-17-2024 4 mg, IntraVENous, ONCE, 1 dose, On Solange 11/17/24 at 2115 Start: 11-15-2024 End: 11-15-2024 4 mg, IntraVENous, ONCE PRN, 1 dose, Starting on Thu11/15/24 at 1719, Until Thu11/15/24 at 1802, Nausea, Initial antiemetic therapy., PACU only Start: 10-12-2021 End: 10-12-2021 ondansetron (ZOFRAN-ODT) dis integrating tablet 4 mg 2 ml orphenadrine citrate 30 mg/ml injection (1 source) Muscle Relaxant Start: 04-20-2023 End: 04-20-2023 orphenadrine (NORFLEX) injection 60 mg Start: 04-20-2023 End: 04-20-2023 orphenadrine (NORFLEX) injec tion 60 mg oxyCODONE hydrochloride 5 mg oral tablet (1 source) Opioid Agonist Start: 11-15-2024 End: 11-15-2024 take 1 dose by mouth once for pain 5 mg, Oral, ONCE PRN, 1 dose, Starting on Thu11/15/24 at 1719, Until Thu11/15/24 at 1756, Pain Moderate (4-6) OR per patient request for pain score (7-10), Pain Severe (7-10), PHASE II, PACU only Ozempic (0.25 or 0.5 MG/DOSE) 2 MG/1.5ML (8 sources) Ozempic (0.25 or 0.5 MG/DOSE) 2 MG/1.5ML as directed Subcutaneous Not-Taking/PRN Ozempic (0.25 or 0.5 MG/DOSE) 2 MG/1.5ML as directed Subcutaneous Not-Taking plecanatide 3 mg oral tablet (12 sources) Start: 02-27-2023 End: 05-21-2023 take 1 tablet by mouth once daily Plecanatide (Trulance) 3 mg tablet Discontinued 3 MG PO Daily May 21, 2023 12:00am May 21, 2023 11:36am Start: 02-05-2023 take 1 tablet by elan [...] May 21, 2023 11:36am polyethylene glycol 3350 10076 mg powder for oral solution (7 sources) [...] ml sodium chloride 9 mg/m l injection (5 sources) Start: 11-17-2024 End: 11-17-2024 1,000 mL (9.59 mL/kg), IntraVENous, at 983.6 mL/hr, Administer over 61 Minutes, ONCE, On Solange 11/17/24 at 2115, For 1 dose Start: 11-15-2024 Start: 11-15-2024 Start: 11-15-2024 Start: 01-13-2024 End: 01-13-2024 1,000 mL (10.4 mL/kg), Intra VENous, at 983.6 mL/hr, Administer over 61 Minutes, ONCE, On Thu01/13/24 at 1530, For 1 dose, For adult patients weighing > 55 kg (120 lbs.) and less than Tirzepatide (7 sources) Start: 06-02-2024 End: 07-27-2024 Tirzepatide (Mounjaro) [...] Date Documented Da te Episodic/Chronic Abdominal pain (5 sources) Unspecified abdominal pain; Translations: [Flank pain] Onset: 5 Episodic Anxiety disorders (20 sources) Posttraumatic stress disorder; Translations: [Post-traumatic stress disorder, unspecified] Onset: 9 Chronic Asthma (20 sources) Asthma; Translations: [Unspecified asthma, uncomplicated] Onset: 4 03-10-2023 Chronic Attention-deficit, conduct, and disruptive behavior disorders (9 sources) Attention-deficit hyperactivity disorder, unspecified type; Translations: [Attention deficit disorder with hyperactivity] Chronic Complication of device; implant or graft (3 sources) Complication associated with neurological device; Translations: [Breakdown (mechanical) of implanted electronic neurostimulator, generator, sequela] Onset: 5 09-20-2024 Episodic Contraceptive and procreative management (3 sources) Subcutaneous contraceptive implant present; Translations: [Encounter for surveillance of implantable subdermal contraceptive] 06-30-2024 Episodic Deficiency and other anemia (1 source) Anemia, unspecified; Translations: [Anemia, unspecified] Onset: 4 Episodic Deficiency and other anemia (1 source) Iron deficiency anemia, unspecified; Translations: [Iron deficiency anemia, unspecified] Onset: 4 Episodic Deficiency and other anemia (2 sources) Iron deficiency anemia; Translations: [Other iron deficiency anemias] 11-02-2024 Episodic Diabetes mellitus with complications (20 sources) [...] tripping, or stumbling] 04-20-2023 Episodic Esophageal disorders (14 sources) Gastroesophageal reflux disease; Translations: [Gastro-esophageal reflux disease without esophagitis] 06-15-2024 Chronic Essential hypertension (2 sources) Essential (primary) hypertension; Translations: [Essential (primary) hypertension] Onset: Chronic Gastrointestinal hemorrhage (1 source) Hemorrhage of anus and rectum Episodic Genitourinary symptoms and ill-defined conditions (4 sources) Edinson hematuria; Translations: [Gross hematuria] Onset: 5 11-14-2024 Episodic Headache; including migraine (2 sources) Tension-type [...] ankle and foot] Onset: 4 03-10-2023 Chronic Osteoporosis (9 sources) Osteoporosis; Translations: [Other osteoporosis without current pathological fracture] Onset: 5 11-02-2024 Chronic Other bone disease and musculoskeletal deformities (2 sources) Osteopenia; Translations: [Other specified disorders of bone density and structure, unspecified site] 11-02-2024 Episodic Other diseases of kidney and ureters (6 sources) Hydronephrosis with renal and ureteral calculous obstruction; Translations: [Calculus of ureter] Onset: 5 11-15-2024 Episodic Other ear and sense organ disorders (1 source) Acute otitis externa; Translations: [Diffuse otitis externa, left ear] Episodic Other endocrine disorders (20 sources) Reactive hypoglycemia; Translations: [Other hypoglycemia] Onset: 5 Resolved: 5 05-20-2023 Chronic Other endocrine disorders (8 sources) Other hypoglycemia Chronic Other endocrine disorders (4 sources) Disorder of endocrine system; Translations: [Endocrine disorder, unspecified] 04-18-2024 Episodic Other gastrointestinal disorders (9 sources) Irritable bowel syndrome; Translations: [Irritable bowel [...] work type] Chronic Other nervous system disorders (20 sources) Chronic pain; Translations: [Other chronic pain] Onset: 5 Resolved: 5 08-17-2024 Chronic Other nervous system disorders (1 source) Other chronic pain; Translations: [Chronic pain of right ankle] Onset: 5 Chronic Other nervous system disorders (2 sources) Paresthesia; Translations: [Paresthesia of skin] 11-30-2023 Episodic Other nervous system disorders (1 source) Other acute postprocedural pain; Translations: [Other acute postprocedural pain] Onset: 5 Episodic Other non-traumatic joint disorders (1 source) Other instability, left wrist; Translations: [Other instability, left wrist] Onset: 5 Episodic Other non-traumatic joint disorders (1 source) Pain in right ankle and joints of right foot; Translations: [Chronic pain of right ankle] Onset: 5 Episodic Other non-traumatic joint disorders (1 source) Pain in unspecified ankle and joints of unspecified foot; Translations: [Pain in joint involving ankle and foot, unspecified laterality] Onset: 5 Episodic Other nutritional; endocrine; and [...] nutritional; endocrine; and metabolic disorders (20 sources) Body mass index 30+ - obesity; Translations: [Body mass index (BMI) 36.0-36.9, adult] 06-05-2023 Chronic Other nutritional; endocrine; and metabolic disorders (10 sources) Severe obesity; Translations: [Class 2 severe obesity due to excess calories with serious comorbidity and body mass index (BMI) of 39.0 to 39.9 in adult ([facility])] 04-07-2024 Chronic Other nutritional; endocrine; and metabolic disorders (4 sources) Weight increased; Translations: [Abnormal weight gain] 04-07-2024 Episodic Other upper respiratory disease (20 sources) Chronic rhinitis; Translations: [Chronic rhinitis] Onset: 4 03-10-2023 Chronic Residual codes; unclassified (5 sources) Obstructive sleep apnea (adult) (pediatric); Translations: [OBSTRUCTIVE SLEEP APNEA] Onset: 3 Chronic Residual codes; unclassified (17 sources) Obstructive sleep apnea syndrome; Translations: [Obstructive sleep apnea (adult) (pediatric)] 11-30-2023 Chronic Residual codes; unclassified (4 sources) Hypersomnia; Translations: [Hypersomnia, unspecified] 11-03-2024 Chronic Residual codes; unclassified (1 source) Pain, unspecified; Translations: [Pain, unspecified] Onset: 4 Episodic Residual codes; unclassified (1 source) Genetic susceptibility to other malignant neoplasm; Translations: [Genetic susceptibility to other malignant neoplasm] Onset: 4 Episodic Residual codes; unclassified (8 sources) Other specified health status; Translations: [Other [...] initial encounter for closed fracture Onset: 5 Unclassified (1 source) Patient encounter status 11-15-2024 Past or Other Problems Problem Classification Problem Date Documented Da te Episodic/Chronic Administrative/social admission (6 sources) Patient encounter status; Translations: [Dietary counseling and surveillance] Onset: 12-15-2023 04-07-2024 Episodic Attention-deficit, conduct, and disruptive behavior disorders (20 sources) Attention deficit hyperactivity disorder; Translations: [Attention-deficit hyperactivity disorder, unspecified type] Onset: 04-27-2024 Resolved: 04-27-2024 05-20-2023 Chronic Biliary tract disease (20 sources) Acute cholecystitis; Translations: [Acute cholecystitis] Onset: 09-15-2016 03-10-2023 Episodic Calculus of urinary tract (20 sources) Personal [...] current episode mixed, moderate] Onset: 04-27-2024 Resolved: 11-11-2024 Chronic Mood disorders (14 sources) Mood disorders Onset: 05-02-2020 05-02-2020 Nonmalignant [...] Onset: 03-10-2023 03-10-2023 Episodic Other gastrointestinal disorders (20 sources) Irritable bowel syndrome characterized by constipation; [...] 04-27-2024 05-20-2023 Chronic Other nervous system disorders (20 sources) Postoperative pain ; Translations: [Other acute postprocedural pain] Onset: 08-17-2024 Resolved: 08-17-2024 08-10-2024 Episodic Other non-traumatic joint disorders (4 sources) Pain in left ankle and joints of left foot; Translations: [PAIN IN LEFT ANKLE] Onset: 01-29-2022 Episodic Other non-traumatic joint disorders (2 sources) Ankle pain; Translations: [Ankle Pain] Onset: 07-16-2024 Episodic Other screening for suspected conditions (not [...] Onset: 12-02-2022 Resolved: 02-18-2024 03-10-2023 Episodic Unclassified (14 sources) Onset: 02-10-2020 02-10-2020 Results Test Name Value Interpretation Reference Range Facility Office Visiton 11-23-2024 Follow-up visit [id number] Karma Whitehead 1980 F Date Provider Department Center 11/23/2024 [facility] Family History Problem Relation Age of Onset Diabetes Mother Hyperlipidemia Mother Other Father Family Status - Relation Status Age at Mother Alive Father Level of Service:75858 [place] OFFICE/OUTPATIENT NEW MODERATE MDM 45 MINUTES Reason for Visit and Comments: Hyperlipidemia [182] Obesity [8562371748] Diabetes [34] Anemia [123658] Patient is here today for surgery clearance for a breast re [Other] Follow-up [942574] - Patient is a usually seen at the [facility] office.Patient states she need to have a stress test which need to be approved. Patient is unable to treadmill due to bilateral broken ankles 5 months ago Normal [facility] Stone Analysison 11-19-2024 Calculi description See Note [facility] Comment on above: Result Comment: (NOT E) Specimen consists of one brown and gonzalez calculus. The total weight is 21 mg. Performed By: #### A STONE #### [facility] [address] [place] [address] [id number] Head Batcher: Baljeet Crowder MD Composition See Note [facility] Comment on above: Result Comment: (NOT E) Calculi composed primarily of calcium oxalate monohydrate. INTERPRETIVE INFORMATION: Calculi (Stone) analysis Calculi are the products of physiological processes that yield crystalline compounds in a matrix of biological compounds and blood. Matrix components are not reported. The clinically significant crystalline components identified in calculi specimens are reported. Gross description may not be consistent with composition determined by FTIR analysis. Performed By: [facility] [address] [place] [id number] Luggage Attendant: Tony Rodrigez MD, PhD CLIA Number: [id number] Performed By: #### A STONE #### [facility] [address] [place] [address] [id number] Head Batcher: Baljeet Crowder MD Mass 21 mg [facility] Comment on above: Performed By: #### A STONE #### [facility] [address] [place] [address] [id number] Head Batcher: Baljeet Crowder [facility] Anion gap [Moles/Vol] 12 mmol/L 9 - 16 mmol/L [facility] Calcium [Mass/Vol] 8.8 mg/dL 8.6 - 10. 4 mg/dL [facility] Chloride [Moles/Vol] 106 mmol/L 98 - 10 7 mmol/L [facility] CO2 [Moles/Vol] 23 mmol/L 20 - 31 mmol/L [facility] Creatinine [Mass/Vol] 0.7 mg/dL 0.50 - 0.90 mg/dL [facility] Emily Zacarias - PINF [facility] [...] that affects renal tubular secretion. Glucose [Mass/Vol] 118 mg/dL High 74 - 99 mg/dL [facility] Interpretation and review of laboratory results Abnormal [facility] Potassium [Moles/Vol] 3.7 mmol/L 3.7 - 5.3 mmol/L [facility] Sodium [Moles/Vol] 141 mmol/L 136 - 145 mmol/L [facility] Urea nitrogen [Mass/Vol] 15 mg/dL 6 - 20 mg/dL [facility] Urea nitrogen/Creatinine [Mass ratio] 21 mg/mg High 9 - 20 [facility] Basic Metabolic Profon 11-17 Anion gap [Moles/Vol] 12 mmol/L Normal 9-16 [facility] Comment on above: Performed By: #### C DP, BMP #### [facility] [address] [place] [address] Head Batcher: Domenica Velázquez MD BUN/CRE Ratio 21 High 9-20 [facility] Comment on above: Performed By: #### C DP, BMP #### [facility] [address] [place] [address] Head Batcher: Domenica Velázquez MD Calcium [Mass/Vol] 8.8 mg/dL Normal 8.6-10.4 [facility] Comment on above: Performed By: #### C DP, BMP #### [facility] [address] [place] [address] Head Batcher: Domenica Velázquez MD Chloride [Moles/Vol] 106 mmol/L Normal 98-107 [facility] Comment on above: Performed By: #### C DP, BMP #### [facility] [address] [place] [address] Head Batcher: Domenica Velázquez MD CO2 [Moles/Vol] 23 mmol/L Normal 20-31 [facility] Comment on above: Performed By: #### C DP, BMP #### [facility] [address] [place] [address] Head Batcher: Domenica Velázquez MD Creatinine [Mass/Vol] 0.7 mg/dL Normal 0.50-0.90 [facility] Comment on above: Performed By: #### C DP, BMP #### [facility] [address] [place] [address] Head Batcher: Domenica Velázquez MD GFR/1.73 sq M.predicted among non-blacks MDRD (S/P/Bld) [Vol rate/Area] mL/min/{1.73_m2} Normal >60 [facility] Comment on above: Result [...] tubular secretion. Performed By: #### C DP, BMP #### [facility] [address] [place] [address] Head Batcher: Domenica Velázquez MD Glucose [Mass/Vol] 118 mg/dL High 74-99 [facility] Comment on above: Performed By: #### C DP, BMP #### [facility] [address] [place] [address] Head Batcher: Domenica Velázquez MD Potassium [Moles/Vol] 3.7 mmol/L Normal 3.7-5.3 [facility] Comment on above: Performed By: #### C DP, BMP #### [facility] [address] [place] [address] Head Batcher: Domenica Velázquez MD Sodium [Moles/Vol] 141 mmol/L Normal 136-145 [facility] Comment on above: Performed By: #### C DP, BMP #### [facility] [address] [place] [address] Head Batcher: Domenica Velázquez MD Urea nitrogen [Mass/Vol] 15 mg/dL Normal 6-20 [facility] Comment on above: Performed By: #### C DP, BMP #### [facility] [address] [place] [address] Head Batcher: Domenica Velázquez MD CBC with Auto Differentialon 11-17-2024 Basophils (Bld) [#/Vol] 0.07 10*3/uL [facility] Basophils/100 WBC (Bld) 1 % 0 - 2 % [facility] Eosinophils (Bld) [#/Vol] 0.38 10*3/uL [facility] Eosinophils/100 WBC (Bld) 3 % 1 - 4 % [facility] Erythrocyte distribution width (RBC) [Ratio] 15.0 % High 11.8 - 14.4 % [facility] Hematocrit (Bld) [Volume fraction] 38.8 % 36.3 - 47.1 % [facility] Hemoglobin (Bld) [Mass/Vol] 12.7 g/dL 11.9 - 15.1 g/dL [facility] Immature granulocytes (Bld) [#/Vol] 0.13 10*3/uL [facility] Immature granulocytes/100 WBC (Bld) 1 % High 0 [facility] Interpretation and review of laboratory results Abnormal [facility] Lymphocytes/100 WBC (Bld) 24 % 24 - 43 % [facility] Lymphocytes/100 WBC (Bld) 3.36 % [facility] MCH (RBC) [Entitic mass] 28.5 pg 25.2 - 33.5 pg [facility] MCHC (RBC) [Mass/Vol] 32.7 g/dL 28.4 - 34.8 g/dL [facility] MCV (RBC) [Entitic vol] 87.0 fL 82.6 - 102.9 fL [facility] Monocytes/100 WBC (Bld) 5 % 3 - 12 % [facility] Monocytes/100 WBC (Bld) 0.69 % [facility] Neutrophils/100 WBC (Bld) 66 % High 36 - 65 % [facility] Nucleated RBC/100 WBC (Bld) [Ratio] 0.0 % 0.0 per 100 WBC [facility] Platelet mean volume (Bld) [Entitic vol] 10.3 fL 8.1 - 13.5 fL [facility] Platelets (Bld) [#/Vol] 316 10*3/uL [facility] RBC (Bld) [#/Vol] 4.46 10*6/uL 3.95 - 5.1 1 m/uL [facility] Segmented neutrophils/100 WBC (Bld) 9.43 % High [facility] WBC other (Bld) [#/Vol] 14.1 High [facility] CBC with Diffon 11-17-2024 Abs. Basophil 0.07 k/uL Normal 0.00-0.20 [facility] Comment on above: Performed By: #### C DP, BMP #### [facility] [address] [place] [address] Head Batcher: Domenica Velázquez MD Abs.Imm.Granulocyte 0.13 k/uL Normal 0.00-0.30 [facility] Comment on above: Performed By: #### C DP, BMP #### [facility] [address] [place] [address] Head Batcher: Domenica Velázquez MD Abs.Neutrophil (Seg) 9.43 k/uL High 1.50-8.10 [facility] Comment on above: Performed By: #### C DP, BMP #### [address] [place] [address] Head Batcher: Domenica Velázquez MD Basophils/100 WBC (Bld) 1 % Normal 0-2 [facility] Comment on above: Performed By: #### C DP, BMP #### [address] [place], [place] [id number] Head Batcher: Domenica Velázquez MD Eosinophils (Bld) [#/Vol] 0.38 10*3/uL Normal 0.00-0.44 [facility] Comment on above: Performed By: #### C DP, BMP #### [address] [place], [facility] Head Batcher: Domenica Velázquez MD Eosinophils/100 WBC (Bld) 3 % Normal 1-4 [facility] Comment on above: Performed By: #### C DP, BMP #### [address] [place] [address] Head Batcher: Domenica Velázquez MD Erythrocyte distribution width (RBC) [Ratio] 15.0 % High 11.8-14.4 [facility] Comment on above: Performed By: #### C DP, BMP #### [address] [place] [address] Head Batcher: Domenica Velázquez MD Hematocrit (Bld) [Volume fraction] 38.8 % Normal 36.3-47.1 [facility] Comment on above: Performed By: #### C DP, BMP #### [address] [place] [address] Head Batcher: Domenica Velázquez MD Hemoglobin (Bld) [Mass/Vol] 12.7 g/dL Normal 11.9-15.1 [facility] Comment on above: Performed By: #### C DP, BMP #### [facility] [address] [place] [address] Head Batcher: Domenica Velázquez MD Immature granulocytes/100 WBC (Bld) 1 % High 0 [facility] Comment on above: Performed By: #### C DP, BMP #### [facility] [address] [place], [facility] Head Batcher: Domenica Velázquez MD Lymphocytes (Bld) [#/Vol] 3.36 10*3/uL Normal 1.10-3.70 [facility] Comment on above: Performed By: #### C DP, BMP #### [facility] [address] [place], [facility] Head Batcher: Domenica Velázquez MD Lymphocytes/100 WBC (Bld) 24 % Normal 24-43 [facility] Comment on above: Performed By: #### C DP, BMP #### [address] Dr. [place], [place] [id number] Head Batcher: Domenica Velázquez MD MCH (RBC) [Entitic mass] 28.5 pg Normal 25.2-33.5 [facility] Comment on above: Performed By: #### C DP, BMP #### [address] [place], [place] [address] Head Batcher: Domenica Velázquez MD MCHC (RBC) [Mass/Vol] 32.7 g/dL Normal 28.4-34.8 [facility] Comment on above: Performed By: #### C DP, BMP #### [address] [place] [address] Head Batcher: Domenica Velázquez MD MCV (RBC) [Entitic vol] 87.0 fL Normal 82.6-102.9 [facility] Comment on above: Performed By: #### C DP, BMP #### [facility] [address] [place], [place] [id number] Head Batcher: Domenica Velázquez MD Monocytes (Bld) [#/Vol] 0.69 10*3/uL Normal 0.10-1.20 [facility] Comment on above: Performed By: #### C DP, BMP #### [facility] [address] [place], [facility]83 Head Batcher: Domenica Velázquez MD Monocytes/100 WBC (Bld) 5 % Normal 3-12 [facility] Comment on above: Performed By: #### C DP, BMP #### [facility] [address] [place], [place] [address] Head Batcher: Domenica Velázquez MD Neutrophil (Seg) 66 % High 36-65 [facility] Comment on above: Performed By: #### C DP, BMP #### [facility] [address] [place], [facility] Head Batcher: Domenica Velázquez MD NRBC Automated 0.0 per 100 WBC Normal 0.0 [facility] Comment on above: Performed By: #### C DP, BMP #### [facility] [address] [place], [facility] Head Batcher: Domenica Velázquez MD Platelet mean volume (Bld) [Entitic vol] 10.3 fL Normal 8.1-13.5 [facility] Comment on above: Performed By: #### C DP, BMP #### [facility] [address] [place], [facility] Head Batcher: Domenica Velázquez MD Platelets (Bld) [#/Vol] 316 10*3/uL Normal 138-453 [facility] Comment on above: Performed By: #### C DP, BMP #### [facility] [address] [place], [place] [id number] Head Batcher: Domenica Velázquez MD RBC (Bld) [#/Vol] 4.46 10*6/uL Normal 3.95-5.11 [facility] Comment on above: Performed By: #### C DP, BMP #### [facility] [address] [place], [place] 0759283 Head Batcher: Domenica Velázquez MD WBC (d) [#/Vol] 14.1 10*3/uL High 3.5-11.3 [facility] Comment on above: Performed By: #### C DP, BMP #### [facility] [address] [place], [place] [phone] Head Batcher: MD Stephani Story 11-17-2024 CN Office Visit (OTMBHT ) ELENAKARMA CALDERON ([id number]) 1980 F Date Time Provider Department 11/17/24 1:40 PM DAVID HDZ [facility] During your visit today, we recorded the following information about you: David Hdz MD 11/17/2024 2:24 PM Signed November 17, 2024 HPI: Karma Paul is a 44 yo female with injury in June and then again a few weeks later to right ankle. Pain Descriptors: Duration: chronic Severity: moderate Quality: ache Location: foot, ankle Context: worse with activity and dependent position Modifying Factors: improved with rest and elevation Supporting Subjective Information Below: There is no height or weight on file to calculate BMI. Past Medical History PAST MEDICAL HISTORY Diagnosis Date Diverticulitis Surgical History: PAST SURGICAL HISTORY Procedure Laterality Date PAST SURGICAL HISTORY OF 12/2012 sinus surgery x2 PAST SURGICAL HISTORY OF repair of left ankle fracture TONSILLECTOMY HX 12/2012 Family History: No family history on file. Medications: Current Outpatient Medications Medication Sig ascorbic acid, vitamin C, (VITAMIN C) 500 mg tablet Take 500 mg by mouth two times a day. calcium carbonate-vitamin D3 600 mg-12.5 mcg (500 unit) cap Take 2 capsules by mouth once daily. cholecalciferol (VITAMIN D3) 5,000 unit tab Take 1 tablet by mouth once daily. lamoTRIgine (LAMICTAL) 200 mg tablet Take 200 mg by mouth. LINZESS 290 mcg capsule Take 290 mcg by mouth. lisdexamfetamine (VYVANSE) 70 mg capsule Take 70 mg by mouth every morning. metoprolol succinate ER (TOPROL XL) 25 mg 24 hr tablet Take 25 mg by mouth. lurasidone (LATUDA) 120 mg tablet Take 120 mg by mouth. rosuvastatin (CRESTOR) 10 mg tablet Take 10 mg by mouth. MOUNJARO 2.5 mg/0.5 mL pen injector Inject 2.5 mg subcutaneously. VITAMIN B COMPLEX PO Take 1 tablet by mouth once daily. empagliflozin (JARDIANCE) 25 mg tablet Take 25 mg by mouth once daily. docusate sodium (COLACE) 100 mg capsule Take 300 mg by mouth once daily. diclofenac, EC, (VOLTAREN) 75 mg EC tablet Take 75 mg by mouth. diclofenac (VOLTAREN) 1 % topical gel APPLY 2 (TWO) grams TO THE AFFECTED AREA(S) FOUR TIMES DAILY NEEDED FOR PAIN cyclobenzaprine (FLEXERIL) 10 mg tablet Take 10 mg by mouth. montelukast (SINGULAIR) 10 mg tablet Take 10 mg by mouth every evening. FLUoxetine 20 mg capsule Take 20 mg by mouth once daily. (Patient taking differently: Take 60 mg by mouth once daily.) ALBUTEROL SULFATE (PROAIR HFA INHALATION) Inhale as instructed as needed. fluticasone 50 mcg/actuation nasal spray Use 1 [place] in each nostril as needed. CYANOCOBALAMIN, VITAMIN B-12, (VITAMIN B-12 ORAL) Take by mouth once daily. MULTIVIT ANDMINERALS/FERROUS FUM (MULTI VITAMIN ORAL) Take by mouth once daily. ACIDOPHILUS/BULGARICUS (FLORANEX ORAL) Take by mouth once daily. (Patient not taking: Reported on 11/17/2024) Ferrous Sulfate 325 mg (65 mg iron) tablet Take 325 mg by mouth once daily. (Patient not taking: Reported on 11/17/2024) PYRIDOXINE HCL (VITAMIN B-6 ORAL) Take by mouth once daily. (Patient not taking: Reported on 11/17/2024) DIPHENHYDRAMINE HCL (BENADRYL ORAL) Take by mouth as needed. (Patient not taking: Reported on 11/17/2024) etonogestrel subdermal implant 68 mg (NEXPLANON) 68 mg by SUBDERMAL route one time only. Left arm (Patient not taking: Reported on 11/17/2024) No current facility-administered medications for this visit. Allergies: Keflex [Cephalexin], Celexa [Citalopram Hydrobromide], and Metformin Review Of Systems GENERAL:Negative for malaise, significant weight loss and fever HEENT:Negative for frequent or significant headaches, significant changes in vision or vision problems, significant ear problems or hearing loss, nasal discharge or nose bleeds and sore throat, difficulty swallowing, mouth lesions NECK:Negative for lumps, goiter, pain and significant neck swelling RESPIRATORY: Negative for cough, wheezing and shortness of breath CARDIOVASCULAR: Negative for chest pain, leg swelling and palpitations GASTROINTESTINAL: Negative for abdominal discomfort, blood in stools or black stools and change in bowel habits GENITOURINARY: Negative for dysuria, frequency and incontinence MUSCULOSKELETAL: Negative for joint pain or swelling, back pain, and muscle pain. NEUROLOGIC:Negative for focal numbness or weakness, headaches and dizziness. SKIN:Negative for lesions, rash, and itching. PSYCHIATRIC: Negative for sleep disturbance, mood disorder and recent psychosocial stressors. HEMATOLOGIC/LYMPHATIC/ IMMUNOLOGIC:Negative for prolonged bleeding, bruising easily, and swollen nodes. ENDOCRINE: Negative for cold or heat intolerance, polyuria, polydipsia and goiter. Physical Exam: Basic physical examination reveals the patient to be in no acute distress. The patient is alert and orie (more content not included)... Normal [facility] CT ABDOMEN PELVIS W IV CONTR Dar 11-17-2024 CT ABDOMEN PELVIS W IV CONTRAST EXAM: CT ABDOMEN AND PELVIS WITH CONTRAST [...] of either ureter; no hydronephrosis. Contrast Dosage Interpreted by: Janeth Hathaway MD Signed by: Janeth Hathaway MD 11/17/24 Final result Normal [facility] CT Abdomen and Pelvis W cont rast Qiana 11-17-2024 1. No acute findings in the abdomen or pelvis. 2. Right urinary tract stent in place. No stones along the pathway of either ureter; no hydronephrosis. Contrast Dosage [facility] CONSOLIDATED EXAM: CT ABDOMEN AND PELVIS WITH CONTRAST [...] osseous abnormality. No focal soft tissue abnormality. [facility] RIS CONSOLIDATED Janeth Hathaway MD - 11/17/2024 EXAM: CT [...] of either ureter; no hydronephrosis. Contrast Dosage [facility] Radiology Study observation (narrative) [facility] CT Abdomen and Pelvis W cont rast IVOrdered By: Janeth Hathaway on 11-17-2024 [facility] Work Phone: HCG, ,Urineon 11-17 Beta HCG ( test) Ql (U) Negative Normal NEG [facility] Comment on above: Result Comment: Spec imens with hCG levels near the threshold of the test (25 mIU/mL) may give a negative or indeterminate result. In such cases, another test should be performed with a new specimen in 48-72 hours. If early is suspected clinically in this setting, correlation with quantitative serum b-hCG level is suggested. Performed By: #### U #### [facility] [employer] [address] [place] [address] Head Batcher: Manuel Lagunas MD [facility] [address] [place] [address] Head Batcher: Domenica Velázquez MD Hepatic Function Panelon Albumin [Mass/Vol] 3.9 g/dL 3.5 - 5.2 g/dL [facility] Albumin/Globulin [Mass ratio] 1.3 {ratio} 1.0 - 2.5 [facility] ALP [Catalytic activity/Vol] 101 U/L 35 - 104 U/L [facility] ALT [Catalytic activity/Vol] 51 U/L High 10 - 35 U/L [facility] AST [Catalytic activity/Vol] 32 U/L 10 - 35 U/L [facility] Bilirubin [Mass/Vol] mg/dL 0.00 - 1.20 mg/dL [facility] Bilirubin.direct [Mass/Vol] mg/dL 0.00 - 0.30 mg/dL [facility] Bilirubin.indirect [Mass/Vol] Can not be calculated 0.0 - 1.0 mg/dL [facility] Interpretation and review of laboratory results Abnormal [facility] Protein [Mass/Vol] 6.9 g/dL 6.6 - 8.7 g/dL [facility] Lipaseon 11-17-2024 Lipase [Catalytic activity/Vol] 25 U/L 13 - 60 U/L [facility] Lipase [Catalytic activity/Vol] 25 U/L Normal 13-60 [facility] Comment on above: Performed By: #### U RC #### [facility] [address] [place] [address] Head Batcher: Manuel Lagunas MD [facility] [address] [place] [address] [place] [id number] Head Batcher: Domenica Velázquez MD Liver Profileon 11-17-2024 Albumin [Mass/Vol] 3.9 g/dL Normal 3.5-5.2 [facility] Comment on above: Performed By: #### U RC #### [facility] [address] [place] [address] Head Batcher: Manuel Lagunas MD [facility] [address] [place] [address] [place] [id number] Head Batcher: Domenica Velázquez MD Albumin/Glob Ratio 1.3 Normal 1.0-2.5 [facility] Comment on above: Performed By: #### U RC #### [facility] [address] [place] [address] Head Batcher: Manuel Lagunas MD [facility] [address] [place] [address] [place] [address] Head Batcher: Domenica Velázquez MD Alkaline Phos 101 U/L Normal 35-104 [facility] Comment on above: Performed By: #### U RC #### [facility] [address] [place] [address] Head Batcher: Manuel Lagunas MD [facility] [address] [place] [address] [place] [phone] Head Batcher: Domenica Velázquez MD ALT [Catalytic activity/Vol] 51 U/L High 10-35 [facility] Comment on above: Performed By: #### U RC #### [address] [address] Head Batcher: Manuel Lagunas MD [facility] [address] [place] [address] [place]. [place], [place] [phone] Head Batcher: Domenica Velázquez MD AST [Catalytic activity/Vol] 32 U/L Normal 10-35 [facility] Comment on above: Performed By: #### U RC #### [facility] [address] [place] [address] Head Batcher: Manuel Lagunas MD [facility] [address] [place] [address] Dr. [place], [place] [id number] Head Batcher: Domenica Velázquez MD Bilirubin [Mass/Vol] mg/dL Normal 0.00-1.20 [facility] Comment on above: Performed By: #### U RC #### [address] [address] Head Batcher: Manuel Lagunas MD [facility] [address] [place] [address] Dr. [place] [address] Head Batcher: Domenica Velázquez MD Bilirubin, Indirect Can not be calculated Normal 0.0-1 .0 [facility] Comment on above: Performed By: #### U RC #### [facility] [address] [place] [address] Head Batcher: Manuel Lagunas MD [facility] [address] [place] [address] Dr. [place] [phone] Head Batcher: Domenica Velázquez MD Bilirubin.indirect [Mass/Vol] mg/dL Normal 0.00-0.30 [facility] Comment on above: Performed By: #### U RC #### [facility] [address] [place] [address] Head Batcher: Manuel Lagunas MD [facility] [address] [place] [address] [place] [address] Head Batcher: Domenica Velázquez MD Protein [Mass/Vol] 6.9 g/dL Normal 6.6-8.7 [facility] Comment on above: Performed By: #### U RC #### [facility] [address] [place], [place] [phone] Head Batcher: Manuel Lagunas MD [facility] [address] [place] [address] Head Batcher: Domenica Velázquez MD Microscopic Urinalysison Bacteria LM Ql (Urine sed) 3+ Abnormal None [facility] Epithelial cells LM.HPF (Urine sed) [#/Area] 0 TO 2 [facility] Interpretation and review of laboratory results Abnormal [facility] RBC LM.HPF (Urine sed) [#/Area] 100 /[HPF] [facility] WBC LM.HPF (Urine sed) [#/Area] 5 TO 10 [facility] No Panel Informationon 11-17 [facility] Urinalysison 11-17-2024 Bilirubin Ql (U) Negative NEGATIVE [facility] Glucose Test strip (U) [Mass/Vol] 3+ Abnormal NEGATIVE mg/dL [facility] Hemoglobin Auto test strip Ql (U) 3+ Abnormal NEGATIVE [facility] Interpretation and review of laboratory results Abnormal [facility] Ketones (U) [Mass/Vol] TRACE Abnormal NEGATIVE mg/dL [facility] Nitrite Ql (U) Positive Abnormal NEGATIVE [facility] pH (U) 5.5 [pH] 5.0 - 9.0 [facility] Protein (U) [Mass/Vol] 2+ Abnormal NEGATIVE mg/dL [facility] Specific gravity (U) [Rel density] 1.020 1.010 - 1.020 [facility] Urobilinogen Qn (U) Normal 0.0 - 1. 0 EU/dL [facility] Urinalysis, Routineon 2024 Clarity (U) Cloudy Abnormal CLEAR [facility] Comment on above: Performed By: #### U RC #### [facility] [address] [place], [place] [id number] Head Batcher: Manuel Lagunas MD [facility] [address] [place] [address] Dr. [place], [place] [phone] Head Batcher: Domenica Velázquez MD Color (U) Red Abnormal YEL [facility] Comment on above: Performed By: #### U RC #### [address] [address] Head Batcher: Manuel Lagunas MD [address] [place] [address] Head Batcher: Domenica Velázquez MD Comment Results may be affected due to urine color interference. Normal [facility] Comment on above: Performed By: #### U RC #### [address] [address] Head Batcher: Manuel Lagunas MD [address] [place] [address]683 Head Batcher: Domenica Velázquez MD Leukocyte esterase Test strip Ql (U) SMALL Abnormal NEG [facility] Comment on above: Performed By: #### U RC #### [address] [address] Head Batcher: Manuel Lagunas MD [address] [place] [address]683 Head Batcher: Domenica Velázquez MD Bilirubin, SemiQt,Ur Negative Normal NEG [facility] Comment on above: Performed By: #### U RC #### [address] [address] Head Batcher: Manuel Lagunas MD [address] [place] [address]683 Head Batcher: Domenica Velázquez MD Blood, Urine 3+ Abnormal NEG [facility] Comment on above: Performed By: #### U RC #### [address] [address] Head Batcher: Manuel Lagunas MD [facility] [address] [place] [address] Dr. [place], [place] [id number] Head Batcher: Domenica Velázquez MD Glucose Ql (U) 3+ mg/dL Abnormal NEG [facility] Comment on above: Performed By: #### U RC #### [facility] [address] [place] [address] Head Batcher: Manuel Lagunas MD [facility] [address] [place] [address] [place] [address] Head Batcher: Domenica Velázquez MD Ketones Ql (U) TRACE Abnormal NEG [facility] Comment on above: Performed By: #### U RC #### [address] [address] Head Batcher: Manuel Lagunas MD [facility] [address] [place] [address] [place] [address] Head Batcher: Domenica Velázquez MD Nitrite,Ur Positive Abnormal NEG [facility] Comment on above: Performed By: #### U RC #### [address] [address] Head Batcher: Manuel Lagunas MD [address] [place] [address]683 Head Batcher: Domenica Velázquez MD PH,Ur 5.5 Normal 5.0-9.0 [facility] Comment on above: Performed By: #### U RC #### [address] [address] Head Batcher: Manuel Lagunas MD [facility] [address] [place] [address] Dr. [place] [phone] Head Batcher: Domenica Velázquez MD Protein Ql (U) 2+ mg/dL Abnormal NEG [facility] Comment on above: Performed By: #### U RC #### [address] [address] Head Batcher: Manuel Lagunas MD [facility] [address] [place] [address] Dr. [place], [place] [id number] Head Batcher: Domenica Velázquez MD Spec. Maybell,Ur 1.020 Normal 1.010-1.020 [facility] Comment on above: Performed By: #### U RC #### [address] [address] Head Batcher: Manuel Lagunas MD [facility] [address] [place] [address] Dr. [place] [address]683 Head Batcher: Domenica Velázquez MD Urobilinogen,Ur Normal Normal 0.0-1.0 [facility] Comment on above: Performed By: #### U RC #### [address] [address] Head Batcher: Manuel Lagunas MD [address] [place] [address]683 Head Batcher: Domenica Velázquez MD Urinalysis,Microon 5 Bacteria 3+ Abnormal NONE [facility] Comment on above: Performed By: #### U RC #### [address] [address] Head Batcher: Manuel Lgaunas MD [address] [place] [address]683 Head Batcher: Domenica Velázquez MD Epithelial cells LM Ql (Urine sed) 0 TO 2 Normal 0-25 [facility] Comment on above: Performed By: #### U RC #### [address] [address] Head Batcher: Manuel Lagunas MD [facility] [address] [place] [address] Dr. [place] [address]683 Head Batcher: Domenica Velázquez MD Urine RBC's GREATER THAN 100 Normal 0-2 [facility] Comment on above: Performed By: #### U RC #### [address] [place] [address] Head Batcher: Manuel Lagunas MD [facility] [address] [place] [address] Head Batcher: Domenica Velázquez MD Urine WBC's 5 TO 10 Normal 0-5 [facility] Comment on above: Performed By: #### U RC #### [facility] [employer] [address] [place] [address] Head Batcher: Manuel Lagunas MD [facility] [address] [place] [address] Head Batcher: Domenica Velázquez MD Urine Preg (Lab)on 5 HCG ( test) Ql (U) Negative NEGATIVE [facility] Comment on above: Specimens with hCG l evels near the threshold of the test (25 mIU/mL) may give a negative or indeterminate result. In such cases, another test should be performed with a new specimen in 48-72 hours. If early is suspected clinically in this setting, correlation with quantitative serum b-hCG level is suggested. [facility] XR ANKLE 3V AP/LAT/OBL BILon 11-17-2024 XR ANKLE 3V AP/LAT/OBL KVNG * * *Final Report* * * DATE OF EXAM: Nov 17 2024 12:44PM [id number] - XR ANKLE 3V AP/LAT/OBL KVNG / PROCEDURE REASON: Pain in joint involving ankle and foot, unspecified laterality * * * * Physician Interpretation * * * * HISTORY: Pain in joint involving ankle and foot, unspecified laterality . Patient complains of bilateral ankle pain TECHNIQUE: XR ANKLE 3V AP/LAT/OBL KVNG COMPARISON: None RESULT: Moderate degenerative changes in the left ankle with joint space narrowing and small osteophytes. Remote healed left distal fibular fracture. Mild degenerative changes in the right ankle with small osteophytes. Corticated ossification at the right lateral malleolar tip compatible with remote trauma. No other significant abnormality. - IMPRESSION: Moderate degenerative changes left ankle. Mild degenerative changes right ankle. Cancer Genetics Assistant: PSCB Transcribe Date/Time: Nov 18 2024 12:03P Dictated by : MARC HAHN MD This examination was interpreted and the report reviewed and electronically signed by: MARC HAHN MD on Nov 18 2024 12:07PM EST [id number] Normal [facility] XR WRIST RIGHT (MIN 3 VIEWS) on 11-17-2024 XR WRIST RIGHT (MIN 3 VIEWS) EXAMINATION: 3 XRAY VIEWS OF THE RIGHT [...] mild soft tissue swelling around the wrist. IMPRESSION: [...] along the radiocarpal joint and diffuse osteopenia. Interpreted by: Mark Lopez MD Signed by: Mark Lopez MD 11/17/24 Final result Normal [facility] XR Wrist - right 3 Viewson 0 11-17-2024 Small focus of lucen cy and surrounding punctate areas of increased density projecting along the proximal pole the scaphoid bone which could be due to prior trauma or postop changes but is indeterminate. Recommend orthopedic follow-up Mild widening of the scapholunate space suggestive of ligamentous instability with no obvious acute fracture. Recommend follow-up. 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 [facility] RIS CONSOLIDATED EXAMINATION: 3 XRAY VIEWS OF THE RIGHT [...] mild soft tissue swelling around the wrist. [facility] Mark Gerber MD - 11/17/2024 EXAMINATION: 3 XRAY VIEWS [...] mild soft tissue swelling around the wrist. IMPRESSION: [...] along the radiocarpal joint and diffuse osteopenia. [facility] Radiology Study observation (narrative) [facility] XR Wrist - right 3 ViewsOrde red By: Mark Lopez on 11-17-2024 [facility] Work Phone: Cult,Urineon 11-16-2024 Cult,Urine Specimen Description .CLEAN CATCH URINE Special Requests Site: Urine Culture STREPTOCOCCUS AGALACTIAE (GROUP B) <50032 CFU/ML Group B strep is identified at [...] presence of the organism alone. Identification by MALDI-TOF Report Status FINAL 11/16/2024 Normal [facility] Comment on above: Performed By: #### U #### [facility] [employer] [address] [place] [address] Head Batcher: Mnauel Lagunas MD [facility] [address] [place] [address] Head Batcher: Domenica Velázquez MD EKG 12 LeadOrdered By: Madhav Keith on 11-15-2024 Atrial Rate 89 BPM [facility] Work Phone: P [place] 47 degrees [facility] [employer] Work Phone: P-R Interval 126 ms [facility] Work Phone: Q-T Interval 358 ms [employer] Work Phone: QRS Duration 78 ms [facility] Work Phone: QTc Calculation (Bazett) 435 ms [facility] Work Phone: R Vermillion 25 degrees [facility] Work Phone: T Vermillion 33 degrees [facility] Work Phone: Ventricular Rate 89 BPM [facility] [employer] Work Phone: [facility] [employer] Work Phone: EKG 12 Leadon 11-15-2024 Normal sinus rhythm Normal ECG When compared with ECG of 13-Jan-2024 14:59, No significant change was found Confirmed by Onel Keith ([id number]) on 11/15/2024 11:10:53 PM [facility] RADIOLOGY Onel Keith MD - 11/15/2024 Normal sinus rhythm Normal ECG When compared with ECG of 13-Jan-2024 14:59, No significant change was found Confirmed by Onel Keith ([id number]) on 11/15/2024 11:10:53 PM [employer] FLUORO FOR SURGICAL PROCEDUR ESon 11-15-2024 FLUORO FOR SURGICAL PROCEDURES Radiology exam is complete. No Radiologist dictation. Please follow up with ordering provider. Final result Normal [facility] Glucose, Whole Bloodon 11-15 Glucose [Mass/Vol] 83 mg/dL 74 - 100 mg/dL [facility] Glucose [Mass/Vol] 83 mg/dL Normal 74-100 [facility] Glucose [Mass/Vol] 83 mg/dL 74 - 100 mg/dL [facility] Glucose [Mass/Vol] 83 mg/dL Normal 74-100 [facility] Guidance-- during surgeryon 11-15-2024 Radiology exam is complete. No Radiologist dictation. Please follow up with ordering provider. [facility] Basic Metabolic Panelon 10-31 Anion gap [Moles/Vol] 12 mmol/L 9 - 16 mmol/L [facility] Calcium [Mass/Vol] 8.9 mg/dL 8.6 - 10. 4 mg/dL [facility] Chloride [Moles/Vol] 103 mmol/L 98 - 10 7 mmol/L [facility] CO2 [Moles/Vol] 23 mmol/L 20 - 31 mmol/L [facility] Creatinine [Mass/Vol] 0.7 mg/dL 0.50 - 0.90 mg/dL [facility] Est, Glom Filt Rate - PINF [facility] that affects renal tubular secretion. Glucose [Mass/Vol] 108 mg/dL High 74 - 99 mg/dL [facility] Interpretation and review of laboratory results Abnormal [facility] Potassium [Moles/Vol] 3.6 mmol/L Low 3.7 - 5.3 mmol/L [facility] Sodium [Moles/Vol] 138 mmol/L 136 - 145 mmol/L [facility] Urea nitrogen [Mass/Vol] 14 mg/dL 6 - 20 mg/dL [facility] Urea nitrogen/Creatinine [Mass ratio] 20 mg/mg 9 - 20 [facility] Basic Metabolic Profon 11-14 Anion gap [Moles/Vol] 12 mmol/L Normal 9-16 [facility] Comment on above: Performed By: #### A STONE #### [facility] [address] [place] [address] Head Batcher: Baljeet Crowder MD BUN/CRE Ratio 20 Normal 9-20 [facility] Comment on above: Performed By: #### A STONE #### [facility] [address] [place] [address] Head Batcher: Baljeet Crowder MD Calcium [Mass/Vol] 8.9 mg/dL Normal 8.6-10.4 [facility] Comment on above: Performed By: #### A STONE #### [facility] [address] [place] [address] Head Batcher: Baljeet Crowder MD Chloride [Moles/Vol] 103 mmol/L Normal 98-107 [facility] Comment on above: Performed By: #### A STONE #### [facility] [address] [place] [address] Head Batcher: Baljeet Crowder MD CO2 [Moles/Vol] 23 mmol/L Normal 20-31 [facility] Comment on above: Performed By: #### A STONE #### [facility] [address] [place] [address] Head Batcher: Baljeet Crowder MD Creatinine [Mass/Vol] 0.7 mg/dL Normal 0.50-0.90 [facility] Comment on above: Performed By: #### A STONE #### [facility] [address] [place] [address] Head Batcher: Baljeet Crowder MD GFR/1.73 sq M.predicted among non-blacks MDRD (S/P/Bld) [Vol rate/Area] mL/min/{1.73_m2} Normal >60 [facility] Comment on above: Result [...] affects renal tubular secretion. Performed By: #### A STONE #### [facility] [address] [place] [address] Head Batcher: Baljeet Crowder MD Glucose [Mass/Vol] 108 mg/dL High 74-99 [facility] Comment on above: Performed By: #### A STONE #### [facility] [address] [place] [address] Head Batcher: Baljeet Crowder MD Potassium [Moles/Vol] 3.6 mmol/L Low 3.7-5.3 [facility] Comment on above: Performed By: #### A STONE #### [facility] [address] [place] [address] Head Batcher: Baljeet Crowder MD Sodium [Moles/Vol] 138 mmol/L Normal 136-145 [facility] Comment on above: Performed By: #### A STONE #### [facility] [address] [place] [address] Head Batcher: Baljeet Crowder MD Urea nitrogen [Mass/Vol] 14 mg/dL Normal 6-20 [facility] Comment on above: Performed By: #### A STONE #### [facility] [address], [place] [id number] Head Batcher: Baljeet Crowder MD CBC with Auto Differentialon 11-14-2024 Basophils (Bld) [#/Vol] 0.07 10*3/uL [facility] Basophils/100 WBC (Bld) 1 % 0 - 2 % [facility] Eosinophils (Bld) [#/Vol] 0.30 10*3/uL [facility] Eosinophils/100 WBC (Bld) 3 % 1 - 4 % [facility] Erythrocyte distribution width (RBC) [Ratio] 14.6 % High 11.8 - 14.4 % [facility] Hematocrit (Bld) [Volume fraction] 40.0 % 36.3 - 47.1 % [facility] Hemoglobin (Bld) [Mass/Vol] 13.0 g/dL 11.9 - 15.1 g/dL [facility] Immature granulocytes (Bld) [#/Vol] 0.09 10*3/uL [facility] Immature granulocytes/100 WBC (Bld) 1 % High 0 [facility] Interpretation and review of laboratory results Abnormal [facility] Lymphocytes/100 WBC (Bld) 29 % 24 - 43 % [facility] Lymphocytes/100 WBC (Bld) 3.00 % [facility] MCH (RBC) [Entitic mass] 28.4 pg 25.2 - 33.5 pg [facility] MCHC (RBC) [Mass/Vol] 32.5 g/dL 28.4 - 34.8 g/dL [facility] MCV (RBC) [Entitic vol] 87.3 fL 82.6 - 102.9 fL [facility] Monocytes/100 WBC (Bld) 6 % 3 - 12 % [facility] Monocytes/100 WBC (Bld) 0.57 % [facility] Neutrophils/100 WBC (Bld) 60 % 36 - 65 % [facility] Nucleated RBC/100 WBC (Bld) [Ratio] 0.0 % 0.0 per 100 WBC [facility] Platelet mean volume (Bld) [Entitic vol] 10.6 fL 8.1 - 13.5 fL [facility] Platelets (Bld) [#/Vol] 323 10*3/uL [facility] RBC (Bld) [#/Vol] 4.58 10*6/uL 3.95 - 5.1 1 m/uL [facility] Segmented neutrophils/100 WBC (Bld) 6.26 % [facility] WBC other (Bld) [#/Vol] 10.3 [facility] CBC with Diffon 11-14-2024 Abs. Basophil 0.07 k/uL Normal 0.00-0.20 [facility] Comment on above: Performed By: #### A STONE #### [facility] [address] [place] [address] Head Batcher: Baljeet Crowder MD Abs.Imm.Granulocyte 0.09 k/uL Normal 0.00-0.30 [facility] Comment on above: Performed By: #### A STONE #### [facility] [address] [place] [address] Head Batcher: Baljeet Crowder MD Abs.Neutrophil (Seg) 6.26 k/uL Normal 1.50-8.10 [facility] Comment on above: Performed By: #### A STONE #### [facility] [address] [place] [address] Head Batcher: Baljeet Crowder MD Basophils/100 WBC (Bld) 1 % Normal 0-2 [facility] Comment on above: Performed By: #### A STONE #### [facility] [address] [place] [address] Head Batcher: Baljeet Crowder MD Eosinophils (Bld) [#/Vol] 0.30 10*3/uL Normal 0.00-0.44 [facility] Comment on above: Performed By: #### A STONE #### [facility] [address] [place] [address] Head Batcher: Baljeet Crowder MD Eosinophils/100 WBC (Bld) 3 % Normal 1-4 [facility] Comment on above: Performed By: #### A STONE #### [facility] [address] [place] [address] Head Batcher: Baljeet Crowder MD Erythrocyte distribution width (RBC) [Ratio] 14.6 % High 11.8-14.4 [facility] Comment on above: Performed By: #### A STONE #### [facility] [address] [place] [address] Head Batcher: Baljeet Crowder MD Hematocrit (Bld) [Volume fraction] 40.0 % Normal 36.3-47.1 [facility] Comment on above: Performed By: #### A STONE #### [facility] [address] [place] [address] Head Batcher: Baljeet Crowder MD Hemoglobin (Bld) [Mass/Vol] 13.0 g/dL Normal 11.9-15.1 [facility] Comment on above: Performed By: #### A STONE #### [facility] [address] [place] [address] Head Batcher: Baljeet Crowder MD Immature granulocytes/100 WBC (Bld) 1 % High 0 [facility] Comment on above: Performed By: #### A STONE #### [facility] [address] [place] [address] Head Batcher: Baljeet Crowder MD Lymphocytes (Bld) [#/Vol] 3.00 10*3/uL Normal 1.10-3.70 [facility] Comment on above: Performed By: #### A STONE #### [facility] [address] [place] [address] Head Batcher: Baljeet Crowder MD Lymphocytes/100 WBC (Bld) 29 % Normal 24-43 [facility] Comment on above: Performed By: #### A STONE #### [facility] [address] [place] [address] Head Batcher: Baljeet Crowder MD MCH (RBC) [Entitic mass] 28.4 pg Normal 25.2-33.5 [facility] Comment on above: Performed By: #### A STONE #### [facility] [address] [place] [address] Head Batcher: Baljeet Crowder MD MCHC (RBC) [Mass/Vol] 32.5 g/dL Normal 28.4-34.8 [facility] Comment on above: Performed By: #### A STONE #### [facility] [address] [place] [address] Head Batcher: Baljeet Crowder MD MCV (RBC) [Entitic vol] 87.3 fL Normal 82.6-102.9 [facility] Comment on above: Performed By: #### A STONE #### [facility] [address] [place] [address] Head Batcher: Baljeet Crowder MD Monocytes (Bld) [#/Vol] 0.57 10*3/uL Normal 0.10-1.20 [facility] Comment on above: Performed By: #### A STONE #### [facility] [address] [place] [address] Head Batcher: Baljeet Crowder MD Monocytes/100 WBC (Bld) 6 % Normal 3-12 [facility] Comment on above: Performed By: #### A STONE #### [facility] [address] [place] [address] Head Batcher: Baljeet Crowder MD Neutrophil (Seg) 60 % Normal 36-65 [facility] Comment on above: Performed By: #### A STONE #### [facility] [address] [place] [address] Head Batcher: Baljeet Crowder MD NRBC Automated 0.0 per 100 WBC Normal 0.0 [facility] Comment on above: Performed By: #### A STONE #### [facility] [address] [place] [address] Head Batcher: Baljeet Crowder MD Platelet mean volume (Bld) [Entitic vol] 10.6 fL Normal 8.1-13.5 [facility] Comment on above: Performed By: #### A STONE #### [facility] [address] [place] [address] Head Batcher: Baljeet Crowder MD Platelets (Bld) [#/Vol] 323 10*3/uL Normal 138-453 [facility] Comment on above: Performed By: #### A STONE #### [facility] [address] [place] [address] Head Batcher: Baljeet Crowder MD RBC (Bld) [#/Vol] 4.58 10*6/uL Normal 3.95-5.11 [facility] Comment on above: Performed By: #### A STONE #### [facility] [address] [place] [address] Head Batcher: Baljeet Crowder MD WBC (Bld) [#/Vol] 10.3 10*3/uL Normal 3.5-11.3 [facility] Comment on above: Performed By: #### A STONE #### [facility] [address] [place] [address] Head Batcher: Baljeet Crowder MD CT ABDOMEN PELVIS WO CONTRAS Ton 11-14-2024 CT ABDOMEN PELVIS WO CONTRAST EXAM: CT ABDOMEN AND PELVIS WITHOUT CONTRAST [...] with borderline right hydroureter. 2. Fatty liver. Interpreted by: Mickey Yates MD Signed by: Mickey Yates MD 11/14/24 Final result Normal [facility] CT Abdomen and Pelvis WO con traston 11-14-2024 1. 5 mm calculus in the distal right ureter with borderline right hydroureter. 2. Fatty liver. [facility] EXAM: CT ABDOMEN AND PELVIS WITHOUT CONTRAST [...] osseous abnormality. No focal soft tissue abnormality. [facility] Mickey Yates MD - 11/14/2024 EXAM: CT [...] with borderline right hydroureter. 2. Fatty liver. [facility] Radiology Study observation (narrative) [facility] CT Abdomen and Pelvis WO con trastOrdered By: Mickey Yates on 11-14-2024 [facility] Work Phone: Urinalysis w/ Microon 2024 Bacteria 1+ Abnormal NONE [facility] Comment on above: Performed By: #### U AMIC #### [facility] [address] [place] [address] Head Batcher: Domenica Velázquez MD Bilirubin, SemiQt,Ur Negative Normal NEG [facility] Comment on above: Performed By: #### U AMIC #### [facility] [address] [place] [address] Head Batcher: Dmoenica Velázquez MD Blood, Urine 3+ Abnormal NEG [facility] Comment on above: Performed By: #### U AMIC #### [facility] [address] [place] [address] Head Batcher: Domenica Velázquez MD Clarity (U) Turbid Abnormal CLEAR [facility] Comment on above: Performed By: #### U AMIC #### [facility] [address] [place] [address] Dr[address] [place], [place] [id number] Head Batcher: Domenica Velázquez MD Color (U) Yellow Normal YEL [facility] Comment on above: Performed By: #### U AMIC #### [facility] [address] [place] [address] Dr[address] [place], [place] [id number] Head Batcher: Domenica Velázquez MD Epithelial cells LM Ql (Urine sed) 0 TO 2 Normal 0-25 [facility] Comment on above: Performed By: #### U AMIC #### [address] [place], [place] [id number] Head Batcher: Domenica Velázquez MD Glucose Ql (U) 3+ mg/dL Abnormal NEG [facility] Comment on above: Performed By: #### U AMIC #### [facility] [address] [place] [address] Dr. [place], [place] [id number] Head Batcher: Domenica Velázquez MD Ketones Ql (U) TRACE Abnormal NEG [facility] Comment on above: Performed By: #### U AMIC #### [address] [place], [place] [id number] Head Batcher: Domenica Velázquez MD Leukocyte esterase Test strip Ql (U) Negative Normal NEG [facility] Comment on above: Performed By: #### U AMIC #### [facility] [address] [place] [address] Dr. [place], [place] [id number] Head Batcher: Domenica Velázquez MD Nitrite,Ur Negative Normal NEG [facility] Comment on above: Performed By: #### U AMIC #### [address] [place], [place] [id number] Head Batcher: Domenica Velázquez MD PH,Ur 6.5 Normal 5.0-9.0 [facility] Comment on above: Performed By: #### U AMIC #### [facility] [address] [place] [address] Dr[place] [id number] Head Batcher: Domenica Velázquez MD Protein Ql (U) 1+ mg/dL Abnormal NEG [facility] Comment on above: Performed By: #### U AMIC #### [facility] [address] [place], [place] [id number] Head Batcher: Domenica Velázquez MD Spec. Maybell,Ur 1.010 Normal 1.010-1.020 [facility] Comment on above: Performed By: #### U AMIC #### [facility] [address] [place] [address] Head Batcher: Domenica Velázquez MD Urine RBC's GREATER THAN 100 Normal 0-2 [facility] Comment on above: Performed By: #### U AMIC #### [facility] [address] [place] [address] Dr. [place], [place] [phone] Head Batcher: Domenica Velázquez MD Urine WBC's 0 TO 2 Normal 0-5 [facility] Comment on above: Performed By: #### U AMIC #### [facility] [address] [place] [address] [place], [place] [id number] Head Batcher: Domenica Velázquez MD Urobilinogen,Ur Normal Normal 0.0-1.0 [facility] Comment on above: Performed By: #### U AMIC #### [facility] [address] [place] [address] Dr. [place], [place] [phone] Head Batcher: Domenica Velázquez MD Urinalysis with Microscopico n 11-14-2024 Bacteria LM Ql (Urine sed) 1+ Abnormal None [facility] Bilirubin Ql (U) Negative NEGATIVE [facility] Clarity (U) Turbid Abnormal Clear [facility] Color (U) Yellow Yellow [facility] [employer] Epithelial cells LM.HPF (Urine sed) [#/Area] 0 TO 2 [facility] Glucose Test strip (U) [Mass/Vol] 3+ Abnormal NEGATIVE mg/dL [facility] Hemoglobin Auto test strip Ql (U) 3+ Abnormal NEGATIVE [facility] Interpretation and review of laboratory results Abnormal [facility] Ketones (U) [Mass/Vol] TRACE Abnormal NEGATIVE mg/dL [facility] Leukocyte esterase Test strip Ql (U) Negative NEGATIVE [facility] Nitrite Ql (U) Negative NEGATIVE [facility] pH (U) 6.5 [pH] 5.0 - 9.0 [facility] Protein (U) [Mass/Vol] 1+ Abnormal NEGATIVE mg/dL [facility] RBC LM.HPF (Urine sed) [#/Area] 100 /[HPF] [facility] Specific gravity (U) [Rel density] 1.010 1.010 - 1.020 [facility] Urobilinogen Qn (U) Normal 0.0 - 1. 0 EU/dL [facility] WBC LM.HPF (Urine sed) [#/Area] 0 TO 2 [facility] XR ABDOMEN (KUB) (SINGLE AP VIEW)on 11-11-2024 XR ABDOMEN (KUB) (SINGLE AP VIEW) EXAM: 1 VIEW XRAY OF THE ABDOMEN 11/07/2024 04:21:22 PM COMPARISON: None available. CLINICAL HISTORY: Renal calculus. ORDERING SYSTEM PROVIDED HISTORY: Renal calculus; TECHNOLOGIST PROVIDED HISTORY: Former[facility] Diagnostic Technologist- Val Crow [phone] or [phone] FINDINGS: BOWEL: Nonobstructive bowel gas pattern. SOFT TISSUES: No opaque urinary calculi. Surgical clips in right upper quadrant. BONES: No acute osseous abnormality. KIDNEYS, URETERS, BLADDER: Several tiny calculi in right kidney, largest measuring about 1 to 4 mm. Multiple calcifications in pelvis, most likely representing phleboliths. IMPRESSION: 1. Several tiny calculi in the right kidney, largest measuring about 1 to 4 mm. Interpreted by: Fady Barnes MD Signed by: Fady Barnes MD 11/11/24 Final result Normal [facility] Operative Reporton Operative Report Indication for Surge ry Retained hardware right wrist Preoperative Diagnosis Retained hardware right wrist with stiffness in the thumb with flexion Postoperative Diagnosis Retained hardware right wrist Adhesion extensor pollicis brevis Adhesion abductor pollicis longus Operation Removal Hardware Extremity Upper, PIN REMOVAL WITH TENOLYSIS, Right, Wrist Tenolysis extensor pollicis brevis Tenolysis abductor pollicis longus Surgeon(s) Nataly DALE, Ana Paula Powers (Surgeon - Primary) Evaluation Specialist None Anesthesia General Leanna Le MD, Constantin Mercer (Provider) Romaine HYLTON-SORAYA, Odin Helm (Provider) Estimated Blood Loss Minimal Specimen(s) Pain x 1 Complications None Tourniquet Time ( T ) Single Tourniquet Cuff NS 18in x 4in [id number], Arm upper (Right), Total Time 14 Settin mmHg Fluid Count 1 L LR Indication: Patient is a 44-year-old female well-known to my practice who is suffered a fall extremity injury several months ago after a fall at home she was found in addition to other injuries of having a right scapholunate ligament disruption and pain verified on MRI recommendations of repair of the scapholunate ligament was recommended surgery was delayed secondary to patient going on vacation and refusing surgery initially when she returned we proceeded with scapholunate ligament reconstruction using internal bracing construct using internal brace from [employer]. She then had deep pin placed across the scaphoid into the capitate for stability. Surgery went well she had excellent fixation. Postoperatively patient states that within the first week she had fallen on her wrist and had significant amount of pain and loosening of her splint postop x-rays had revealed some widening of her scapholunate suggesting that she had reinjured this area. Patient was then told the options of attempted rerepair versus allowing to scar in this position and address future instability or arthritic problems if they occur we discussed we agreed to proceed with observation alone or removal of pin. Considering failure do not feel that additional attempts would have been successful for initial repair. At this time patient is 8 weeks out from surgery recommend proceeding with hardware removal for deep pin possible release of adhesions of any had formed around the pin tract. Patient agreed with surgical intervention Description: Patient received axillary block in holding we marked her surgical site she was given 900 mg of clear mycin and taken to outside the operative suite. Her cast was removed at that time as well as dressings inspected her range of motion and stability once asleep and she was found to have excellent range of motion of 2nd through 5th fingers wrist motion with surprisingly good Cruz maneuver demonstrated no marked instability or clunking. However she did have significant stiffness with thumb flexion. Patient's hand was prepped and draped in the usual fashion arm was exsanguinated to 250 mmHg. C-arm was brought in x-rays revealed some widening of her scapholunate joint postoperative changes noted in the scaphoid and lunate pin was seen traversing the scaphoid and the capitate and was deep in the radial snuffbox area. Next stab incision made over her previous pin tract scar dissected down to the head of the pin which was then removed without difficulty. A second 1-1/2 to 2 cm incision was made just volar to the pin tract carried down through subtendinous tissues the tendons of the first dorsal compartment were then seen in the base of of the snuffbox adjacent to the scar tissue from the tract of the previously removed pin. Dissection of this inflamed tissue was removed and found to be adherent to the extensor tendons of the abductor pollicis longus and extensor pollicis brevis. Dissection of the adherent scar tissue was performed performing a careful tenolysis of each tendon until full independent gliding was noted the thumb was now able to be easily flex to full flexion at the IP joint and MCP joint. Hard removal was performed at a separate site for definitive treatment for her scapholunate repair distinct from these tendon tenolysis. The wound was then copiously irrigated and closed with a 4-0 nylon suture. She was placed in a short thumb spica splint after dressings were applied and she was awoken returned to recovery in stable condition this is a clean case. cc Pascual Zambrano MD Electronically signed by Ana Paula Ingram MD 10/19/24 12:50 EDT [facility] POC Glucose Randomon 025 Glucose [Mass/Vol] 96 mg/dL Normal 70-99 [facility] Comment on above: Performed By: #### C [id number] #### [address] [address] Glucose [Mass/Vol] 124 mg/dL High 70-99 [facility] Comment on above: Performed By: #### C [id number] #### [facility] [address] [place] [address] XR OR Wrist Righton 10-20-19 25 XR OR Wrist Right This report was n ot created by a radiologist, physician, or advanced practice provider. The details of this surgical case can be found within the surgical operative note. The surgical Operative note is located within the patient's chart. Final Signed by: Alondra Osborn Signed (Electronic Signature): 10/19/2024 2:05 pm Transcribed DT/TM: 10/19/2024 2:05 (If Report Is Signed, Electronically Signed in Other Vendor System) Normal [facility] Basic Metabolic Panelon 08-31 Creatinine Clr Calc Pharmacy 134.46 Normal [facility] Comment on above: Result Comment: PERF ORMED BY: [place] [address] PATHOLOGIST STONEMASON APPRENTICE EVELYN KOVACS M.D. Performed By: #### B MP #### [address] GFR/1.73 sq M.predicted MDRD (S/P/Bld) [Vol rate/Area] mL/min/{1.73_m2} Normal [facility] Comment on above: Performed By: #### B MP #### [address] Basophils [#/volume] in Bloo d by Automated countOrdered By: Gio Kim on 09-21-2024 Basophils (Bld) [#/Vol] 0.0 10*3/uL 0.0-0.2 [facility] Comment on above: Result Comment: PERF ORMED BY: [place] [address] PATHOLOGIST STONEMASON APPRENTICE EVELYN KOVACS M.D. Performed By: #### C BC #### [address] [place] [address] [place] Basophils/100 leukocytes in Blood by Automated countOrdered By: Gio Kim on 09-21-2024 Basophils/100 WBC (Bld) 0.6 % . [facility] Comment on above: Performed By: #### C BC #### [address] Calcium [Mass/volume] in Ser um or PlasmaOrdered By: Gio Kim on 09-21-2024 Calcium [Mass/Vol] 9.2 mg/dL 8.6-10.3 [facility] Comment on above: Performed By: #### B MP #### [address] Capillary blood glucose savannah urement by glucometer (mass/volume)on 09-21-2024 Glucose [Mass/Vol] 89 mg/dL [facility] Comment on above: Random Glucose Refer [...] the diagnosis of Diabetes Mellitus. Result Comment: [facility] Glucose Reference Range is dependent on time and content of last meal. Glucose of more than 200 mg/dL in a nonstressed, ambulatory subject supports the diagnosis of Diabetes Mellitus. Performed By: #### G MARTHA #### Point of Care testing , Carbon dioxide, total [Moles /volume] in Serum or PlasmaOrdered By: Gio Kim on 09-21-2024 CO2 [Moles/Vol] 27.4 mmol/L 21.0-31.0 [facility] Comment on above: Performed By: #### B MP #### [place] [address] [place] Chloride [Moles/volume] in S lorene or PlasmaOrdered By: Gio Kim on 09-21-2024 Chloride [Moles/Vol] 105 mmol/L 98-107 [facility] Comment on above: Performed By: #### B MP #### [address] Complete Blood Count Auto Di ffon 09-21-2024 Mean Corpuscular HGB Conc 33.7 g/dL Normal 32.0-35.0 [facility] Comment on above: Performed By: #### C BC #### [address] NRBC% 0.1 /100{WBC} Normal 0-0.5 [facility] Comment on above: Performed By: #### C BC #### [address] White Blood Count 8.3 [CFU]/mL Normal 3.8-11.6 [facility] Comment on above: Performed By: #### C BC #### [address] Creatinine [Mass/volume] in Serum or PlasmaOrdered By: Gio Kim on 09-21-2024 Creatinine [Mass/Vol] 0.60 mg/dL 0.60-1.20 [facility] Comment on above: Performed By: #### B MP #### [address] ECG 12 lead ECGon 09-21-2024 ECG 12 lead ECG [facility] [place] [address] [place] [address] Electrocardiograph Report Signed Patient: Karma Whitehead MR#: [id number] : 1980 Acct:[id number] Age/Sex: 43 / F ADM Date: 09/21/24 Loc: [place] Room: Type: [facility] Attending Dr: Shira Cardoso DO Ordering Provider: Gio Kim Jr, [...] Blakely MD 0 09/21/24 1724 Normal [facility] Eosinophils [#/volume] in Bl ood by Automated countOrdered By: Gio Kim on 09-21-2024 Eosinophils (Bld) [#/Vol] 0.2 10*3/uL 0.0-0.45 [facility] Comment on above: Performed By: #### C BC #### [address] Eosinophils/100 leukocytes i n Blood by Automated countOrdered By: Gio Kim on 09-21-2024 Eosinophils/100 WBC (Bld) 1.8 % . [facility] Comment on above: Performed By: #### C BC #### [address] Erythrocyte distribution wid th [Ratio] by Automated countOrdered By: Gio Kim on 09-21-2024 Erythrocyte distribution width (RBC) [Ratio] 14.9 % 11.9-15.3 [facility] Comment on above: Performed By: #### C BC #### [address] Erythrocytes [#/volume] in B lood by Automated countOrdered By: Gio Kim on 09-21-2024 RBC (Bld) [#/Vol] 5.08 10*6/uL High 3.60-5.00 [facility] Comment on above: Performed By: #### C BC #### [address] GLUCOSE POCT GLUCOMETERSon 0 09-21-2024 [facility] Glucose Poct Glucometerson 0 09-21-2024 COMMEMT1 Glu2: Cleaned Meter Normal [facility] Comment on above: Result Comment: PERF ORMED BY: [place] [address] PATHOLOGIST STONEMASON APPRENTICE EVELYN KOVACS M.D. Performed By: #### G LULS #### Point of Care testing , Glucose [Mass/volume] in Ser um or PlasmaOrdered By: Gio Kim on 09-21-2024 Glucose [Mass/Vol] 87 mg/dL 70-100 [facility] Comment on above: ADA recommended refe rence rangeRandom Glucose Reference Range is dependent on time and content of last meal. Glucose of more than 200 mg/dL in a nonstressed, ambulatory subject supports the diagnosis of Diabetes Mellitus. Result Comment: [place] [facility] Glucose Reference Range is dependent on time and content of last meal. Glucose of more than 200 mg/dL in a nonstressed, ambulatory subject supports the diagnosis of Diabetes Mellitus. ADA recommended reference range Performed By: #### B MP #### [address] HCG ( test) IA.rapi d Ql (U)Ordered By: Gio Kim on 09-21-2024 HCG ( test) Ql (U) Negative [facility] HCG,Urineon 09-21-2024 Beta HCG ( test) Ql (U) Negative Normal [facility] Comment on above: Result Comment: PERF ORMED BY: [place] [address] PATHOLOGIST STONEMASON APPRENTICE EVELYN KOVACS M.D. Performed By: #### U HCG #### [address] Hematocrit [Volume Fraction] of Blood by Automated countOrdered By: Gio Kim on 09-21-2024 Hematocrit (Bld) [Volume fraction] 42.1 % 34.0-46.4 [facility] Comment on above: Performed By: #### C BC #### [address] Hemoglobin [Mass/volume] in BloodOrdered By: Gio Kim on 09-21-2024 Hemoglobin (Bld) [Mass/Vol] 14.2 g/dL 11.8-15.4 [facility] Comment on above: Performed By: #### C BC #### [address] Leukocytes [#/volume] correc comfort for nucleated erythrocytes in Blood by Automated counOrdered By: Gio Kim on 09-21-2024 WBC corrected for nucl RBC Auto (Bld) [#/Vol] 8.3 10*3/uL 3.8-11.6 [facility] Leukocytes [#/volume] in Blo od by Automated countOrdered By: Gio Kim on 09-21-2024 WBC (Bld) [#/Vol] 8.3 10*3/uL 3.8-11.6 [facility] Comment on above: Performed By: #### C BC #### [address] Lymphocytes [#/volume] in Bl ood by Automated countOrdered By: Gio Kim on 09-21-2024 Lymphocytes (Bld) [#/Vol] 2.5 10*3/uL 1.00-4.8 [facility] Comment on above: Performed By: #### C BC #### [address] Lymphocytes/100 leukocytes i n Blood by Automated countOrdered By: Gio Kim on 09-21-2024 Lymphocytes/100 WBC (Bld) 30.4 % . [facility] Comment on above: Performed By: #### C BC #### [address] MCH [Entitic mass] by Automa comfort countOrdered By: Gio Kim on 09-21-2024 MCH (RBC) [Entitic mass] 28.0 pg 24.7-34.3 [facility] Comment on above: Performed By: #### C BC #### [address] MCHC Auto (RBC) [Mass/Vol]Or dered By: Gio Kim on 09-21-2024 MCHC (RBC) [Mass/Vol] 33.7 g/dL 32.0-35.0 [facility] MCV [Entitic volume] by Auto mated countOrdered By: Gio Kim on 09-21-2024 MCV (RBC) [Entitic vol] 83.0 fL 80-100 [facility] Comment on above: Performed By: #### C BC #### [place] [address] [place] Monocytes [#/volume] in Bloo d by Automated countOrdered By: Gio Kim on 09-21-2024 Monocytes (Bld) [#/Vol] 0.5 10*3/uL 0.0-0.8 [facility] Comment on above: Performed By: #### C BC #### [place] [address] [place] Monocytes/100 leukocytes in Blood by Automated countOrdered By: Gio Kim on 09-21-2024 Monocytes/100 WBC (Bld) 6.3 % . [facility] Comment on above: Performed By: #### C BC #### [place] [address] [place] Neutrophils [#/volume] in Bl ood by Automated countOrdered By: Gio Kim on 09-21-2024 Neutrophils (Bld) [#/Vol] 5.1 10*3/uL 1.8-7.7 [facility] Comment on above: Performed By: #### C BC #### [place] [address] [place] Neutrophils/100 leukocytes i n Blood by Automated countOrdered By: Gio Kim on 09-21-2024 Neutrophils/100 WBC (Bld) 60.9 % . [facility] Comment on above: Performed By: #### C BC #### [address] No Panel InformationOrdered By: Shira Cardoso on 09-21-2024 Bedside Glucose Comment Glu2: cleaned meter [facility] No Panel InformationOrdered By: Gio Kim on 09-21-2024 Estimated GFR (CKD-EPI) > 60.0 mL/Min [facility] Creatinine Clearance (Chem 134.46 [facility] Nucleated erythrocytes [Pres ence] in Blood by Automated countOrdered By: Gio Kim on 09-21-2024 Nucleated RBC Auto Ql (Bld) 0.1 /100{WBC} 0-0.5 [facility] Platelet mean volume [Entiti c volume] in Blood by Automated countOrdered By: Gio Kim on 09-21-2024 Platelet mean volume (Bld) [Entitic vol] 8.8 fL 6.3-10.7 [facility] Comment on above: Performed By: #### C BC #### [address] Platelets [#/volume] in Bloo d by Automated countOrdered By: Gio Kim on 09-21-2024 Platelets (Bld) [#/Vol] 299 10*3/uL 150-450 [facility] Comment on above: Performed By: #### C BC #### [address] Potassium [Moles/volume] in Serum or PlasmaOrdered By: Gio Kim on 09-21-2024 Potassium [Moles/Vol] 3.5 mmol/L 3.5-5.1 [facility] Comment on above: Performed By: #### B MP #### [address] Serum or plasma anion gap de terminationOrdered By: Gio Kim on 09-21-2024 Anion gap [Moles/Vol] 12.1 mmol/L 6.0-15.[address] [facility] Comment on above: Performed By: #### B MP #### [place] [address] [place] Sodium [Moles/volume] in Ser um or PlasmaOrdered By: Gio Kim on 09-21-2024 Sodium [Moles/Vol] 141 mmol/L 136-145 [facility] Comment on above: Performed By: #### B MP #### [place] [address] [place] Urea nitrogen [Mass/volume] in Serum or PlasmaOrdered By: Gio Kim on 09-21-2024 Urea nitrogen [Mass/Vol] 11 mg/dL 7-25 [facility] Comment on above: Performed By: #### B MP #### [facility] [address] [place] [address] [facility] Telephoneon 09-15-2024 Telephone [phone] Karma Whitehead 1980 F Date Provider Department Center 09/15/2024 TAMIKO CROW [facility] CARD [facility] No family history on file Normal [facility] BEDSIDE GLUCOSEon 08-18-2024 Glucose [Mass/Vol] 93 mg/dL Normal 65-99 [facility] Comment on above: Performed By: #### B EDG #### [facility] ([facility]) [address] [place] [phone] VIR Glucose [Mass/Vol] 113 mg/dL High 65-99 [facility] Comment on above: Performed By: #### B EDG #### [facility] ([facility]) [address] [place] [address] VIR POCT , URINE (NUCG) on 08-18-2024 Beta HCG ( test) Ql (U) Negative Normal Negative, Indeterminate [facility] Comment on above: Performed By: #### N UCG #### [facility] ([facility]) [address] [place] [address] VIR Capillary blood glucose savannah urement by glucometer (mass/volume)Ordered By: Shira Cardoso on 08-10-2024 Glucose [Mass/Vol] 136 mg/dL [facility] Comment on above: Random Glucose Refer ence Range is dependent on time and content of last meal. Glucose of more than 200 mg/dL in a nonstressed, ambulatory subject supports the diagnosis of Diabetes Mellitus. Result Comment: [place] Glucose Reference Range is dependent on time and content of last meal. Glucose of more than 200 mg/dL in a nonstressed, ambulatory subject supports the diagnosis of Diabetes Mellitus. PERFORMED BY: [facility] [address] [facility] [place] [id number] PATHOLOGIST STONEMASON APPRENTICE EVELYN KOVACS M.D. Performed By: #### G LULS #### Point of Care testing , GLUCOSE POCT GLUCOMETERSon 0 08-10-2024 Glucose [Mass/Vol] 136 mg/dL [facility] Comment on above: Random Glucose Refer ence Range is dependent on time and content of last meal. Glucose of more than 200 mg/dL in a nonstressed, ambulatory subject supports the diagnosis of Diabetes Mellitus. [facility] Glucose [Mass/Vol] 85 mg/dL [facility] Comment on above: Random Glucose Refer ence Range is dependent on time and content of last meal. Glucose of more than 200 mg/dL in a nonstressed, ambulatory subject supports the diagnosis of Diabetes Mellitus. [facility] Glucose Glucometer (BldC) [M ass/Vol]Ordered By: Shira Cardoso on 08-10-2024 Glucose [Mass/Vol] Capillary blood glucose measurement by glucometer (mass/volume) [facility] Comment on above: Random Glucose Refer ence Range is dependent on time and content of last meal. Glucose of more than 200 mg/dL in a nonstressed, ambulatory subject supports the diagnosis of Diabetes Mellitus. Glucose Poct Glucometerson 0 08-10-2024 Glucose [Mass/Vol] 85 mg/dL Normal [facility] Comment on above: Result Comment: [facility] Glucose Reference Range is dependent on time and content of last meal. Glucose of more than 200 mg/dL in a nonstressed, ambulatory subject supports the diagnosis of Diabetes Mellitus. PERFORMED BY: [facility] [address] [place] [address] PATHOLOGIST STONEMASON APPRENTICE EVELYN KOVACS M.D. Performed By: #### G MARTHA #### Point of Care testing , HCG ( test) Brenda reis Ql (U)Ordered By: Hector Barlow on 08-10-2024 HCG ( test) Ql (U) Urine human chorionic gonadotropin (hCG) detection by immunoassay [facility] HCG ( test) Ql (U) Negative [facility] HCG,Urineon 08-10-2024 Beta HCG ( test) Ql (U) Negative Normal [facility] Comment on above: Result Comment: PERF ORMED BY: [facility] [address] [place] [address] PATHOLOGIST STONEMASON APPRENTICE EVELYN KOVACS M.D. Performed By: #### U [facility] #### [address] X-ray reportOrdered By: Jay Ornelas on 08-10-2024 Study report [place] [address] XRay Report Signed Patient: Karma Whitehead MR# : [id number] : 1980 Acct:[id number] Age/Sex: 43 / F ADM Date: 5 Loc: [place] Room: Type: [facility] Attending Dr: Shira Cardoso DO Copies to: Shira Cardoso DO~ Ordering Provider: Shira Cardoso DO Date of Service: 08/10/24 XR/XR [...] Jr., D.ORosy 08/10/2024 10:43 AM Dictation Location: [place] [address] Transcribed By: [facility] 08/10/24 1043 Dictated By: Alin Ornelas Jr, DO 08/10/24 1042 Signed By: 08/10/24 1043 [facility] XR chest 1V portableon 08-10 XR chest 1V portable [place] [address] XRay Report Signed Patient: Karma Whitehead MR#: [id number] : 1980 Acct:[id number] Age/Sex: 43 / F ADM Date: 08/10/24 Loc: [place] Room: Type: [facility] Attending Dr: Shira Cardoso DO Copies to: Shira Cardoso DO Ordering Provider: Shira Cardoso DO Date of Service: 08/10/24 XR/XR [...] Jr., D.O. 08/10/2024 10:43 AM Dictation Location: RADIO-PC-22 Transcribed By: [facility] 08/10/24 1043 Dictated By: Alin Ornelas Jr, DO 08/10/24 1042 Signed By: 08/10/24 104 Normal [facility] Glucose (Bld) [Mass/Vol]on 0 08-04-2024 Glucose Blood, POC 131 mg/dL [facility] Interpretation and review of laboratory results Abnormal [facility] HbA1c (Bld) [Mass fraction]o n 08-04-2024 Interpretation and review of laboratory results Normal [facility] Laboratory - Hematology and Cell countson 08-04-2024 HbA1c (Bld) [Mass fraction] 5.8 % [facility] No Panel Informationon 08-04 [facility] Orders Onlyon 08-03-2024 Orders Only [id number] Karma Whitehead 1980 F Date Provider Department Center 08/03/2024 CHIO SAUL [facility] CARD [facility] No family history on file [facility] 36on 07-29-2024 36 Patient is calling back to follow up on [facility] 36 Pt called stating th at she needs an appeal done for stress and echo. today as this is the last day and she is having surgery 08/10 and 08/18. Notes need to be recover from Prudencio perdomo [facility] Abstracton 07-26-2024 Abstract [id number] Karma Whitehead 1980 F Date Provider Department Center 07/26/2024 80627-FLTLJBIAKENZIE VASQUEZ HVC CARD [facility] No family history on file [facility] Urinalysis w/ Microon 2024 Amorphous sediment LM Ql (Urine sed) TRACE Abnormal NONE [facility] Comment on above: Performed By: #### U AMIC #### [facility] [address] [place] [address] Head Batcher: Domenica Velázquez MD Bacteria TRACE Abnormal NONE [facility] Comment on above: Performed By: #### U AMIC #### [facility] [address] [place] [address] Head Batcher: Domenica Velázquez MD Bilirubin, SemiQt,Ur Negative Normal NEG [facility] Comment on above: Performed By: #### U AMIC #### [facility] [address] [place] [address] Head Batcher: Domenica Velázquez MD Blood, Urine Negative Normal NEG [facility] Comment on above: Performed By: #### U AMIC #### [facility] [address] [place], [place] [id number] Head Batcher: Domenica Velázquez MD Clarity (U) Clear Normal CLEAR [facility] Comment on above: Performed By: #### U AMIC #### [facility] [address] [place] [address] Dr. [place], [place] [id number] Head Batcher: Domenica Velázquez MD Color (U) Yellow Normal YEL [facility] Comment on above: Performed By: #### U AMIC #### [facility] [address] [place], [place] [id number] Head Batcher: Domenica Velázquez MD Epithelial cells LM Ql (Urine sed) 0 TO 2 Normal 0-25 [facility] Comment on above: Performed By: #### U AMIC #### [facility] [address] [place] [address] Head Batcher: Domenica Velázquez MD Glucose Ql (U) 3+ mg/dL Abnormal NEG [facility] Comment on above: Performed By: #### U AMIC #### [facility] [address] [place], [place] [id number] Head Batcher: Domenica Velázquez MD Ketones Ql (U) Negative Normal NEG [facility] Comment on above: Performed By: #### U AMIC #### [facility] [address] [place] [address] Dr. [place], [place] [phone] Head Batcher: Domenica Velázquez MD Leukocyte esterase Test strip Ql (U) Negative Normal NEG [facility] Comment on above: Performed By: #### U AMIC #### [facility] [address] [place] [address] [place] [address] Head Batcher: Domenica Velázquez MD Mucus Strands TRACE Abnormal NONE [facility] Comment on above: Performed By: #### U AMIC #### [facility] [address] [place] [address] Dr. [place], [place] [address] Head Batcher: Domenica Velázquez MD Nitrite,Ur Negative Normal NEG [facility] Comment on above: Performed By: #### U AMIC #### [facility] [address] [place] [address] Dr. [place], [facility] Head Batcher: Domenica Velázquez MD PH,Ur 6.0 Normal 5.0-9.0 [facility] Comment on above: Performed By: #### U AMIC #### [facility] [address] [place] [address] Dr. [place], [place] [address] Head Batcher: Domenica Velázquez MD Protein Ql (U) Negative Normal NEG [facility] Comment on above: Performed By: #### U AMIC #### [facility] [address] [place] [address] Dr. [place], [facility] Head Batcher: Domenica Velázquez MD Spec. Maybell,Ur 1.025 High 1.010-1.020 [facility] Comment on above: Performed By: #### U AMIC #### [facility] [address] [place] [address] Dr. [place], [place] [phone] Head Batcher: Domenica Velázquez MD Urine RBC's 0 TO 2 Normal 0-2 [facility] Comment on above: Performed By: #### U AMIC #### [facility] [address] [place], [place] [id number] Head Batcher: Domenica Velázquez MD Urine WBC's 0 TO 2 Normal 0-5 [facility] Comment on above: Performed By: #### U AMIC #### [facility] [address] [place], [place] [phone] Head Batcher: Domenica Velázquez MD Urobilinogen,Ur Normal Normal 0.0-1.0 [facility] Comment on above: Performed By: #### U AMIC #### [facility] [address] [place], [place] [phone] Head Batcher: Domenica Velázquez MD Urinalysis with Microscopico n 07-16-2024 Amorphous sediment LM Ql (Urine sed) TRACE Abnormal None [facility] Bacteria LM Ql (Urine sed) TRACE Abnormal None [facility] Bilirubin Ql (U) Negative NEGATIVE [facility] Clarity (U) Clear Clear [facility] Color (U) Yellow Yellow [facility] Epithelial cells LM.HPF (Urine sed) [#/Area] 0 TO 2 [facility] Glucose Test strip (U) [Mass/Vol] 3+ Abnormal NEGATIVE mg/dL [facility] Hemoglobin Auto test strip Ql (U) Negative NEGATIVE [facility] Interpretation and review of laboratory results Abnormal [facility] Ketones (U) [Mass/Vol] Negative NEGATIVE mg/dL [facility] Leukocyte esterase Test strip Ql (U) Negative NEGATIVE [facility] Mucus Ql (Urine sed) TRACE Abnormal None [facility] Nitrite Ql (U) Negative NEGATIVE [facility] pH (U) 6 [pH] 5.0 - 9.0 [facility] Protein (U) [Mass/Vol] Negative NEGATIVE mg/dL [facility] RBC LM.HPF (Urine sed) [#/Area] 0 TO 2 [facility] Specific gravity (U) [Rel density] 1.025 High 1.010 - 1.020 [facility] Urobilinogen Qn (U) Normal 0.0 - 1. 0 EU/dL [facility] WBC LM.HPF (Urine sed) [#/Area] 0 TO 2 [facility] XR ANKLE LEFT (MIN 3 VIEWS)o n [...] IMPRESSION: 1. No acute abnormality. Interpreted by: Martir Long MD Signed by: Martir Long MD 07/16/24 Final result Normal [facility] XR Ankle - left 3 Viewson 1. No acute abnormality. [facility] RIS CONSOLIDATED EXAMINATION: THREE XRAY VIEWS OF THE LEFT ANKLE 07/16/2024 11:49 am COMPARISON: None. HISTORY: ORDERING SYSTEM PROVIDED HISTORY: Pain Hx previous Surgery TECHNOLOGIST PROVIDED HISTORY: Pain Hx previous Surgery FINDINGS: There is no acute fracture or dislocation. There are old healed tibial and fibular fractures. The ankle mortise is intact. The bones are demineralized. There are no bony destructive lesions. [facility] Martir Long MD - 07/16/2024 EXAMINATION: THREE XRAY [...] destructive lesions. IMPRESSION: 1. No acute abnormality. [facility] Radiology Study observation (narrative) [facility] XR HIP BILATERAL W AP PELVIS [...] IMPRESSION: 1. No acute abnormality. Interpreted by: Martir Long MD Signed by: Martir Long MD 07/16/24 Final result Normal [facility] XR LUMBAR SPINE (2-3 VIEWS)o n 07-16-2024 [...] IMPRESSION: 1. Mild multilevel spondylosis. Interpreted by: Martir Long MD Signed by: Martir Long MD 07/16/24 Final result Normal [facility] XR Lumbar spine 2 or 3 Views on 07-16-2024 1. Mild multilevel spondylosis. [facility] EXAMINATION: 3 XRAY VIEWS OF THE LUMBAR SPINE 07/16/2024 11:46 am COMPARISON: None. HISTORY: ORDERING SYSTEM PROVIDED HISTORY: back pain TECHNOLOGIST PROVIDED HISTORY: back pain FINDINGS: The 5 lumbar vertebral bodies are in anatomic alignment. The vertebral body heights are maintained. There is mild multilevel spondylosis and facet arthropathy. Status post cholecystectomy. [facility] Martir Long MD - 07/16/2024 EXAMINATION: 3 XRAY VIEWS OF THE LUMBAR SPINE 07/16/2024 11:46 am COMPARISON: None. HISTORY: ORDERING SYSTEM PROVIDED HISTORY: back pain TECHNOLOGIST PROVIDED HISTORY: back pain FINDINGS: The 5 lumbar vertebral bodies are in anatomic alignment. The vertebral body heights are maintained. There is mild multilevel spondylosis and facet arthropathy. Status post cholecystectomy. IMPRESSION: 1. Mild multilevel spondylosis. [facility] Radiology Study observation (narrative) [facility] XR Lumbar spine 2 or 3 Views Ordered By: Martir Long on 07-16-2024 [facility] Work Phone: XR Pelvis and Hip - bilatera l Viewson 07-16-2024 1. No acute abnormality. [facility] EXAMINATION: ONE XRAY VIEW OF THE [...] lesions. 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 [facility] Martir Long MD - 07/16/2024 EXAMINATION: ONE XRAY [...] hip osteoarthritis. IMPRESSION: 1. No acute abnormality. [facility] Radiology Study observation (narrative) [facility] Abstracton 07-08-2024 Abstract [id number] Karma Whitehead 1980 F Date Provider Department Center 07/08/2024 [id number] VASQUEZ [facility] [place] [facility] No family history on file Normal [facility] Insertion/Removal of Contrac eptive Capsuleon 06-30-2024 Bela [...] with steri-strips and pressure bandage applied: yes [facility] Office Visiton 06-20-2024 Follow-up visit [id number] Karma Whitehead 1980 F Date Provider Department Center 06/20/2024 [id number] VASQUEZ [facility] [place] [facility] No family history on file Level of Service:43270 [place] OFFICE/OUTPATIENT NEW [facility] 30 MINUTES Normal [facility] IGP,APTIMA HPV,AGE GDLNon AGE GDLN ACOG TESTING Note . [facility] Comment on above: TESTS RESULT FLAG UN ITS REF RANGE LAB Clinician Provided Cytology Information Source.............Cervix;Endocervix No. of containers..01 ThinPrep Vial Age Algo ACOG Rosana... 30-65 01 FLAG LEGEND: L-Low Normal,H-High Normal,LL-Alert Low,HH-Alert High <-Panic Low,>-Panic High,A-Abnormal,AA-Critical Abnormal Performed at: 01 =[address] [place] [address] Kristin Matute MD, HPV APTIMA Negative Negative [facility] Comment on above: This nucleic acid am plification test detects fourteen high- risk HPV types (16,18,31,33,35,39,45,51,52,56,58,59,66,68) without differentiation. Performed at: =[facility] [employer] [id number] Head Batcher: Kristin Matute MD, Phone: [phone] Performed at: [address] [id number] Head Batcher: Kristin Matute MD, Phone: [phone] IGP, APTIMA HPV, RFX 16/18,45 Note . [facility] Comment on above: TESTS RESULT FLAG U NITS REF RANGE LAB DIAGNOSIS: 02 NEGATIVE FOR INTRAEPITHELIAL LESION OR MALIGNANCY. THIS SPECIMEN WAS RESCREENED PART OF OUR BUS ANALYST PROGRAM. Specimen adequacy: 02 Satisfactory for evaluation. Endocervical and/or squamous metaplastic cells (endocervical component) are present. Performed by: 02 Caro Tejada, Communication Professor (ASCP) QC reviewed by: 02 Hannah Valadez Communication Professor (ASC) . 02 Note: Note 02 The [...] High,A-Abnormal,AA-Critical Abnormal Performed at: 02 [address] [facility] [address] [address] Kristin Matute MD, BRUSH-SPATULA CERVIX ENDOCERVIX [facility] MM TOMOSYNTHESIS SCREENING B Ion 05-27-2024 [place] [address] Mammography Report Signed Patient: KARMA WHITEHEAD MR#: [id number] : 1980 Acct:[id number] Age/Sex: 43 / F ADM Date: 05/27/24 Loc: MAMMO Attending Dr: Roel Garber D.O. Ordering Physician: Roel Garber D.O. Results: Date of Service: 05/27/24 Follow Up: Procedure(s): MM tomosynthesis screening BI Accession Number(s): [id number] cc: Roel Garber D.O.; Davie Mcneal NP Patient Name: KARMA WHITEHEAD MR#: [id number] : 1980 Exam Date: 05/27/2024 Ordering Doctor: [...] None Family Cancers None LOCATION: [facility] BREAST COMPOSITION: There are scattered areas [...] D.O. Signed By: 05/27/241648 DD/ 47 TD/TT: Cancer Genetics Assistant: [facility] Radiology, Radiologist, MD - 05/27/2024 The [place] [id number] Mammography Report Signed Patient: KARMA WHITEHEAD MR#: [id number] : 1980 Acct:[id number] Age/Sex: 43 / F ADM Date: 05/27/24 Loc: MAMMO Attending Dr: Roel Garber D.O. Ordering Physician: Roel Garber D.O. Results: Date of Service: 05/27/24 Follow Up: Procedure(s): MM tomosynthesis screening BI Accession Number(s): [id number] cc: Roel Garber D.O.; Davie Mcneal NP Patient Name: KARMA WHITEHEAD MR#: [id number] : 1980 Exam Date: 05/27/2024 Ordering Doctor: [...] None Family Cancers None LOCATION: [facility] BREAST COMPOSITION: There are scattered areas [...] D.O. Signed By: 05/27/241648 DD/ 47 TD/TT: Cancer Genetics Assistant: [facility] Radiology Study observation (narrative) [facility] MM TOMOSYNTHESIS SCREENING B IOrdered By: Radiologist Radiology on 05-27-2024 [facility] Work Phone: Urinalysis macro (dipstick) panel (U)on 05-26-2024 Bilirubin, UA Negative Negative - 4(70) +++ mg/dL [facility] Blood, UA Negative Negative - 50 Donta/mcL [facility] Clarity, UA Clear [facility] Color, UA Yellow [facility] Glucose, UA Positive Negative - 2000(110) ++++ mg/dL [facility] Comment on above: 500 Interpretation and review of laboratory results Abnormal [facility] Ketones, UA Negative Negative - 160(16) ++++ mg/dL [facility] Leukocytes, UA Negative Negative - 500+++ Quique/mcL [facility] Nitrite, UA Negative Negative - Positive [facility] pH, UA 6 5 - 9 [facility] Protein, UA Negative Negative - 1999(20) ++++ mg/dL [facility] Spec Grav, UA 1.01 1 - 1.03 [facility] Urobilinogen, UA 0.2 0.2 - 12 mg/dL [facility] MLR HEMOGLOBIN A1Con 025 Glucose [Mass/Vol] 123 mg/dL [facility] HbA1c (Bld) [Mass fraction] 5.9 % 4.5 - 6.2 % [facility] Comment on above: ADA RECOMMENDED LIMI T 4.0 - 6.0 ADA THERAPEUTIC TARGET < 7.0 ACTION SUGGESTED > 7.0 [facility] Glucose (Bld) [Mass/Vol]on 0 04-07-2024 Glucose Blood, POC 115 mg/dL [facility] Laboratory - Hematology and Cell countson 04-07-2024 HbA1c (Bld) [Mass fraction] 5.8 % [facility] No Panel Informationon 04-07 Interpretation and review of laboratory results Normal [facility] Strep A Culture Onlyon 03-09 Strep A Culture Only No Group A Beta Streptococcus Isolated 2 Days PERFORMED BY: [place] [address] PATHOLOGIST STONEMASON APPRENTICE DALIA SEARS M.D. Normal [facility] Comment on above: Performed By: #### C USTA #### [address] Streptococcus pyogenes cultu reOrdered By: Mio Marroquin on 03-09-2024 S. pyogenes Org specific cx Ql (Unsp spec) Streptococcus pyogenes culture [facility] CBC with Auto Differentialon 01-13-2024 Basophils (Bld) [#/Vol] 0.06 10*3/uL [facility] Basophils/100 WBC (Bld) 0 % 0 - 2 % [facility] Eosinophils (Bld) [#/Vol] 0.10 10*3/uL [facility] Eosinophils/100 WBC (Bld) 1 % 1 - 4 % [facility] Erythrocyte distribution width (RBC) [Ratio] 13.6 % 11.8 - 14.4 % [facility] Hematocrit (Bld) [Volume fraction] 43.3 % 36.3 - 47.1 % [facility] Hemoglobin (Bld) [Mass/Vol] 14.0 g/dL 11.9 - 15.1 g/dL [facility] Immature granulocytes (Bld) [#/Vol] 0.10 10*3/uL [facility] Immature granulocytes/100 WBC (Bld) 1 % High 0 [facility] Interpretation and review of laboratory results Abnormal [facility] Lymphocytes/100 WBC (Bld) 22 % Low 24 - 43 % [facility] Lymphocytes/100 WBC (Bld) 2.98 % [facility] MCH (RBC) [Entitic mass] 28.5 pg 25.2 - 33.5 pg [facility] MCHC (RBC) [Mass/Vol] 32.3 g/dL 28.4 - 34.8 g/dL [facility] MCV (RBC) [Entitic vol] 88.2 fL 82.6 - 102.9 fL [facility] Monocytes/100 WBC (Bld) 8 % 3 - 12 % [facility] Monocytes/100 WBC (Bld) 1.12 % [facility] Neutrophils/100 WBC (Bld) 68 % High 36 - 65 % [facility] Nucleated RBC/100 WBC (Bld) [Ratio] 0.0 % 0.0 per 100 WBC [facility] Platelet mean volume (Bld) [Entitic vol] 10.0 fL 8.1 - 13.5 fL [facility] Platelets (Bld) [#/Vol] 452 10*3/uL [facility] RBC (Bld) [#/Vol] 4.91 10*6/uL 3.95 - 5.1 1 m/uL [facility] Segmented neutrophils/100 WBC (Bld) 9.08 % High [facility] WBC other (Bld) [#/Vol] 13.4 High [facility] CBC with Diffon 01-13-2024 Abs. Basophil 0.06 k/uL Normal 0.00-0.20 [facility] Comment on above: Performed By: #### U RC #### [address] [address] Head Batcher: Manuel Lagunas MD [facility] [address] [place] [address] [address] [phone] Head Batcher: Domenica Velázquez MD Abs.Imm.Granulocyte 0.10 k/uL Normal 0.00-0.30 [facility] Comment on above: Performed By: #### U RC #### [address] [address] Head Batcher: Manuel Lagunas MD [address] [place] [address] Head Batcher: Domenica Velázquez MD Abs.Neutrophil (Seg) 9.08 k/uL High 1.50-8.10 [facility] Comment on above: Performed By: #### U RC #### [address] [address] Head Batcher: Manuel Lagunas MD [address] [place] [address] Head Batcher: Domenica Velázquez MD Basophils/100 WBC (Bld) 0 % Normal 0-2 [facility] Comment on above: Performed By: #### U RC #### [address] [address] Head Batcher: Manuel Lagunas MD [facility] [address] [place] [address] [place] [address] Head Batcher: Domenica Velázquez MD Eosinophils (Bld) [#/Vol] 0.10 10*3/uL Normal 0.00-0.44 [facility] Comment on above: Performed By: #### U RC #### [address] [address] Head Batcher: Manuel Lagunas MD [facility] [address] [place] [address] Dr. [place], [place] [id number] Head Batcher: Domenica Velázquez MD Eosinophils/100 WBC (Bld) 1 % Normal 1-4 [facility] Comment on above: Performed By: #### U RC #### [place] [address] [place] [address] Head Batcher: Manuel Lagunas MD [facility] [address] [place] [address] Dr. [place] [phone] Head Batcher: Domenica Velázquez MD Erythrocyte distribution width (RBC) [Ratio] 13.6 % Normal 11.8-14.4 [facility] Comment on above: Performed By: #### U RC #### [address] [address] Head Batcher: Manuel Lagunas MD [address] [place] [address]683 Head Batcher: Domenica Velázquez MD Hematocrit (Bld) [Volume fraction] 43.3 % Normal 36.3-47.1 [facility] Comment on above: Performed By: #### U RC #### [address] [address] Head Batcher: Manuel Lagunas MD [address] [place] [address]683 Head Batcher: Domenica Velázquez MD Hemoglobin (Bld) [Mass/Vol] 14.0 g/dL Normal 11.9-15.1 [facility] Comment on above: Performed By: #### U RC #### [address] [address] Head Batcher: Manuel Lagunas MD [address] [place], [place] [id number] Head Batcher: Domenica Velázquez MD Immature granulocytes/100 WBC (Bld) 1 % High 0 [facility] Comment on above: Performed By: #### U RC #### [address] [place] [address] Head Batcher: Manuel Lagunas MD [facility] [address] [place] [address] [place] [address] Head Batcher: Domenica Velázquez MD Lymphocytes (Bld) [#/Vol] 2.98 10*3/uL Normal 1.10-3.70 [facility] Comment on above: Performed By: #### U RC #### [address] [address] Head Batcher: Manuel Lagunas MD [address] [place] [address] Head Batcher: Domenica Velázquez MD Lymphocytes/100 WBC (Bld) 22 % Low 24-43 [facility] Comment on above: Performed By: #### U RC #### [address] [address] Head Batcher: Manuel Lagunas MD [facility] [address] [place] [address] Dr. [place] [phone] Head Batcher: Domenica Velázquez MD MCH (RBC) [Entitic mass] 28.5 pg Normal 25.2-33.5 [facility] Comment on above: Performed By: #### U RC #### [address] [address] Head Batcher: Manuel Lagunas MD [facility] [address] [place] [address] Dr. [place] 3000683 Head Batcher: Doemnica Velázquez MD MCHC (RBC) [Mass/Vol] 32.3 g/dL Normal 28.4-34.8 [facility] Comment on above: Performed By: #### U RC #### [address] [address] Head Batcher: Manuel Lagunas MD [address] [place] 3000683 Head Batcher: Domenica Velázquez MD MCV (RBC) [Entitic vol] 88.2 fL Normal 82.6-102.9 [facility] Comment on above: Performed By: #### U RC #### [place] [address] [place] [address] Head Batcher: Manuel Lagunas MD [facility] [address] [place] [address] [place] [address] Head Batcher: Domenica Velázquez MD Monocytes (Bld) [#/Vol] 1.12 10*3/uL Normal 0.10-1.20 [facility] Comment on above: Performed By: #### U RC #### [address] [address] Head Batcher: Manuel Lagunas MD [address] [place] 3000683 Head Batcher: Domenica Velázquez MD Monocytes/100 WBC (Bld) 8 % Normal 3-12 [facility] Comment on above: Performed By: #### U RC #### [address] [address] Head Batcher: Manuel Lagunas MD [address] [place] 3000683 Head Batcher: Domenica Velázquez MD Neutrophil (Seg) 68 % High 36-65 [facility] Comment on above: Performed By: #### U RC #### [address] [address] Head Batcher: Manuel Lagunas MD [facility] [address] [place] [address] [place] [address] Head Batcher: Domenica Velázquez MD NRBC Automated 0.0 per 100 WBC Normal 0.0 [facility] Comment on above: Performed By: #### U RC #### [address] [address] Head Batcher: Manuel Lagunas MD [facility] [address] [place] [address] Dr. [place], [place] [phone] Head Batcher: Domenica Velázquez MD Platelet mean volume (Bld) [Entitic vol] 10.0 fL Normal 8.1-13.5 [facility] Comment on above: Performed By: #### U RC #### [facility] [address] [place] [address] Head Batcher: Manuel Lagunas MD [facility] [address] [place] [address] [place] [address] Head Batcher: Domenica Velázquez MD Platelets (Bld) [#/Vol] 452 10*3/uL Normal 138-453 [facility] Comment on above: Performed By: #### U RC #### [address] [address] Head Batcher: Manuel Lagunas MD [address] [place] 3000683 Head Batcher: Domenica Velázquez MD RBC (Bld) [#/Vol] 4.91 10*6/uL Normal 3.95-5.11 [facility] Comment on above: Performed By: #### U RC #### [facility] [address] [place] [address] Head Batcher: Manuel Lagunas MD [address] [place] 3000683 Head Batcher: Domenica Velázquez MD WBC (Bld) [#/Vol] 13.4 10*3/uL High 3.5-11.3 [facility] Comment on above: Performed By: #### U RC #### [address] [address] Head Batcher: Manuel Lagunas MD [address] [place] [address] Head Batcher: Domenica Velázquez MD CMPon 01-13-2024 Albumin [Mass/Vol] 4.4 g/dL 3.5 - 5.2 g/dL [facility] Albumin/Globulin [Mass ratio] 1.3 {ratio} 1.0 - 2.5 [facility] ALP [Catalytic activity/Vol] 87 U/L 35 - 104 U/L [facility] ALT [Catalytic activity/Vol] 25 U/L 10 - 35 U/L [facility] Anion gap [Moles/Vol] 11 mmol/L 9 - 16 mmol/L [facility] AST [Catalytic activity/Vol] 17 U/L 10 - 35 U/L [facility] Bilirubin [Mass/Vol] mg/dL 0.00 - 1.20 mg/dL [facility] Calcium [Mass/Vol] 9.9 mg/dL 8.6 - 10. 4 mg/dL [facility] Chloride [Moles/Vol] 101 mmol/L 98 - 10 7 mmol/L [facility] CO2 [Moles/Vol] 25 mmol/L 20 - 31 mmol/L [facility] Creatinine [Mass/Vol] 0.7 mg/dL 0.50 - 0.90 mg/dL [facility] Est, Glom Filt Rate - PINF [facility] [...] 112 mg/dL High 74 - 99 mg/dL [facility] Interpretation and review of laboratory results Abnormal [facility] Potassium [Moles/Vol] 4.2 mmol/L 3.7 - 5.3 mmol/L [facility] Protein [Mass/Vol] 7.8 g/dL 6.6 - 8.7 g/dL [facility] Sodium [Moles/Vol] 137 mmol/L 136 - 145 mmol/L [facility] Urea nitrogen [Mass/Vol] 24 mg/dL High 6 - 20 mg/dL [facility] Urea nitrogen/Creatinine [Mass ratio] 34 mg/mg High 9 - 20 [facility] Comp Metabolic Profon 2023 Albumin [Mass/Vol] 4.4 g/dL Normal 3.5-5.2 [facility] Comment on above: Performed By: #### U RC #### [facility] [address] [place] [address] Head Batcher: Manuel Lagunas MD [facility] [address] [place] [address] [place] [address] Head Batcher: Domenica Velázquez MD Albumin/Glob Ratio 1.3 Normal 1.0-2.5 [facility] Comment on above: Performed By: #### U RC #### [place] [address] [place] [address] Head Batcher: Manuel Lagunas MD [facility] [address] [place] [address] [place] [address] Head Batcher: Domenica Velázquez MD Alkaline Phos 87 U/L Normal 35-104 [facility] Comment on above: Performed By: #### U RC #### [facility] [address] [place] [address] Head Batcher: Manuel Lagunas MD [facility] [address] [place] [address] Dr. [place] [phone] Head Batcher: Domenica Velázquez MD ALT [Catalytic activity/Vol] 25 U/L Normal 10-35 [facility] Comment on above: Performed By: #### U RC #### [address] [address] Head Batcher: Manuel Lagunas MD [facility] [address] [place] [address] [place] [address] Head Batcher: Domenica Velázquez MD Anion gap [Moles/Vol] 11 mmol/L Normal 9-16 [facility] Comment on above: Performed By: #### U RC #### [facility] [address] [place] [address] Head Batcher: Manuel Lagunas MD [facility] [address] [place] [address] Head Batcher: Domenica Velázquez MD AST [Catalytic activity/Vol] 17 U/L Normal 10-35 [facility] Comment on above: Performed By: #### U RC #### [facility] [address] [place] [address] Head Batcher: Manuel Lagunas MD [facility] [address] [place], [place] [id number] Head Batcher: Domenica Velázquez MD Bilirubin [Mass/Vol] mg/dL Normal 0.00-1.20 [facility] Comment on above: Performed By: #### U RC #### [address] [address] Head Batcher: Manuel Lagunas MD [facility] [address] [place] [address] Dr. [place] 3000683 Head Batcher: Domenica Velázquez MD BUN/CRE Ratio 34 High 9-20 [facility] Comment on above: Performed By: #### U RC #### [address] [address] Head Batcher: Manuel Lagnuas MD [facility] [address] [place] [address] [place] [address] Head Batcher: Domenica Velázquez MD Calcium [Mass/Vol] 9.9 mg/dL Normal 8.6-10.4 [facility] Comment on above: Performed By: #### U RC #### [address] [address] Head Batcher: Manuel Lagunas MD [facility] [address] [place], [place] [id number] Head Batcher: Domenica Velázquez MD Chloride [Moles/Vol] 101 mmol/L Normal 98-107 [facility] Comment on above: Performed By: #### U RC #### [facility] [address] [place] [address] Head Batcher: Manuel Lagunas MD [facility] [address] [place], [place] [phone] Head Batcher: Domenica Velázquez MD CO2 [Moles/Vol] 25 mmol/L Normal 20-31 [facility] Comment on above: Performed By: #### U RC #### [address] [address] Head Batcher: Manuel Lagunas MD [facility] [address] [place] [address] [place], [place] [phone] Head Batcher: Domenica Velázquez MD Creatinine [Mass/Vol] 0.7 mg/dL Normal 0.50-0.90 [facility] Comment on above: Performed By: #### U RC #### [facility] [address] [place] [address] Head Batcher: Manuel Lagunas MD [facility] [address] [place] [address] [place], [place] [phone] Head Batcher: Domenica Velázquez MD GFR/1.73 sq M.predicted among non-blacks MDRD (S/P/Bld) [Vol rate/Area] mL/min/{1.73_m2} Normal >60 [facility] Comment on above: Result [...] affects renal tubular secretion. Performed By: #### U RC #### [facility] [address] [place] [address] Head Batcher: Manuel Lagunas MD [facility] [address] [place] [address] Dr. [place], [place] [phone] Head Batcher: Domenica Velázquez MD Glucose [Mass/Vol] 112 mg/dL High 74-99 [facility] Comment on above: Performed By: #### U RC #### [facility] [address] [place] [address] Head Batcher: Manuel Lagunas MD [facility] [address] [place] [address] Dr. [place], [place] [id number] Head Batcher: Domenica Velázquez MD Potassium [Moles/Vol] 4.2 mmol/L Normal 3.7-5.3 [facility] Comment on above: Performed By: #### U RC #### [address] [address] Head Batcher: Manuel Lagunas MD [address] [place], [place] [id number] Head Batcher: Domenica Velázquez MD Protein [Mass/Vol] 7.8 g/dL Normal 6.6-8.7 [facility] Comment on above: Performed By: #### U RC #### [address] [address] Head Batcher: Manuel Lagunas MD [address] [place], [place] [phone] Head Batcher: Domenica Velázquez MD Sodium [Moles/Vol] 137 mmol/L Normal 136-145 [facility] Comment on above: Performed By: #### U RC #### [facility] [address] [place] [address] Head Batcher: Manuel Lagunas MD [facility] [address] [place] [address] Dr. [place], [place] [phone] Head Batcher: Domenica Velázquez MD Urea nitrogen [Mass/Vol] 24 mg/dL High 6-20 [facility] Comment on above: Performed By: #### U RC #### [address] [place], [place] [id number] Head Batcher: Manuel Lagunas MD [facility] [address] [place] [address] Head Batcher: Domenica Velázquez MD Microscopic Urinalysison Bacteria LM Ql (Urine sed) 1+ Abnormal None [facility] Epithelial cells LM.HPF (Urine sed) [#/Area] 0 TO 2 [facility] Interpretation and review of laboratory results Abnormal [facility] Mucus Ql (Urine sed) TRACE Abnormal None [facility] RBC LM.HPF (Urine sed) [#/Area] 0 TO 2 [facility] WBC LM.HPF (Urine sed) [#/Area] None [facility] TSHon 01-13-2024 TSH Qn 1.57 m[IU]/L [facility] Thyroid Stim. Horm.on 2023 Thyroid Stim. Horm. 1.57 uIU/mL Normal 0.27-4.20 [facility] Comment on above: Performed By: #### U RC #### [facility] [address] [place], [place] 9782008 Head Batcher: Manuel Lagunas MD [facility] [address] [place] [address] [place] [address] Head Batcher: Domenica Velázquez MD UA w/Reflex Cultureon 2023 Bilirubin, SemiQt,Ur Negative Normal NEG [facility] Comment on above: Performed By: #### U MICAO, UAX #### [facility] [address] [place] [address] Head Batcher: Domenica Velázquez MD Blood, Urine Negative Normal NEG [facility] Comment on above: Performed By: #### U MICAO, UAX #### [facility] [address] [place] [address] Head Batcher: Domenica Velázquez MD Clarity (U) Clear Normal CLEAR [facility] Comment on above: Performed By: #### U MICAO, UAX #### [facility] [address] [place] [address] Dr. [place], [place] [phone] Head Batcher: Domenica Velázquez MD Color (U) Yellow Normal YEL [facility] Comment on above: Performed By: #### U MICAO, UAX #### [facility] [address] [place], [place] [phone] Head Batcher: Domenica Velázquez MD Glucose Ql (U) 3+ mg/dL Abnormal NEG [facility] Comment on above: Performed By: #### U MICAO, UAX #### [address] [place], [place] [phone] Head Batcher: Domenica Velázquze MD Ketones Ql (U) Negative Normal NEG [facility] Comment on above: Performed By: #### U MICAO, UAX #### [facility] [address] [place] [address] Dr. [place], [place] [phone] Head Batcher: Domenica Velázquez MD Leukocyte esterase Test strip Ql (U) Negative Normal NEG [facility] Comment on above: Performed By: #### U MICAO, UAX #### [address] [place], [place] [phone] Head Batcher: Domenica Velázquez MD Nitrite,Ur Negative Normal NEG [facility] Comment on above: Performed By: #### U MICAO, UAX #### [facility] [address] [place], [place] 3579383 Head Batcher: Domenica Velázquez MD PH,Ur 6.0 Normal 5.0-9.0 [facility] Comment on above: Performed By: #### U MICAO, UAX #### [facility] [address] [place] [address] Dr. [place], [place] [phone] Head Batcher: Domenica Velázquez MD Protein Ql (U) Negative Normal NEG [facility] Comment on above: Performed By: #### U MICAO, UAX #### [facility] [address] [place] [address] Head Batcher: Domenica Velázquez MD Spec. Maybell,Ur >1.030 High 1.010-1.020 [facility] Comment on above: Performed By: #### U MICAO, UAX #### [facility] [address] [place], [place] [phone] Head Batcher: Domenica Velázquez MD Urobilinogen,Ur Normal Normal 0.0-1.0 [facility] Comment on above: Performed By: #### U MIGUELO, UAX #### [facility] [address] [place] [address] Head Batcher: Domenica Velázquez MD Urinalysis with Reflex to Cu ltureon 01-13-2024 Bilirubin Ql (U) Negative [facility]GATIVE [facility] Clarity (U) Clear Clear [facility] Color (U) Yellow Yellow [facility] Glucose Test strip (U) [Mass/Vol] 3+ Abnormal NEGATIVE mg/dL [facility] Hemoglobin Auto test strip Ql (U) Negative NEGATIVE [facility] Interpretation and review of laboratory results Abnormal [facility] Ketones (U) [Mass/Vol] Negative NEGATIVE mg/dL [facility] Leukocyte esterase Test strip Ql (U) Negative NEGATIVE [facility] Nitrite Ql (U) Negative NEGATIVE [facility] pH (U) 6.0 [pH] 5.0 - 9.0 [facility] Protein (U) [Mass/Vol] Negative NEGATIVE mg/dL [facility] Specific gravity (U) [Rel density] High 1.010 - 1.020 [facility] Urobilinogen Qn (U) Normal 0.0 - 1. 0 EU/dL [facility] Urinalysis,Microon 4 Bacteria 1+ Abnormal NONE [facility] Comment on above: Performed By: #### U MICAO, UAX #### [facility] [address] [place], [place] [phone] Head Batcher: Domenica Velázquez MD Epithelial cells LM Ql (Urine sed) 0 TO 2 Normal 0-25 [facility] Comment on above: Performed By: #### U MICAO, UAX #### [facility] [address] [place], [place] 1311083 Head Batcher: Domenica Velázquez MD Mucus Strands TRACE Abnormal NONE [facility] Comment on above: Performed By: #### U MIGUELO, UAX #### [facility] [address] [place] [address] Head Batcher: Domenica Velázquez MD Urine RBC's 0 TO 2 Normal 0-2 [facility] Comment on above: Performed By: #### U MIGUELO, UAX #### [facility] [address] [place], [place] 9768083 Head Batcher: Domenica Velázquez MD Urine WBC's None Normal 0-5 [facility] Comment on above: Performed By: #### U MIGUELO, UAX #### [facility] [address] [place] [address] Head Batcher: Domenica Velázquez MD BASIC METABOLIC PANLon 12-20 Anion gap [Moles/Vol] 10 mmol/L Normal 5-15 [facility] Comment on above: Performed By: #### C BCA, BMP, FEPR, 2276-4 #### [facility] ([id number]) [address] [facility] [place] [address] Calcium [Mass/Vol] 8.9 mg/dL Normal 8.5-10.5 [facility] Comment on above: Performed By: #### C BCA, BMP, FEPR, 2276-4 #### [facility] ([id number]) [address], [address] [place] [address] Chloride [Moles/Vol] 106 mmol/L Normal 98-[address] [facility] Comment on above: Performed By: #### C BCA, BMP, FEPR, 6-4 #### [facility] ([id number]) [address] [address] [place] [address] CO2 [Moles/Vol] 22 mmol/L Normal 22-32 [facility] Comment on above: Performed By: #### C BCA, BMP, FEPR, 2275-4 #### [facility] ([id number]) [address] [address] [place] [address] Creatinine [Mass/Vol] 0.70 mg/dL Normal 0.40-1.00 [facility] Comment on above: Result Comment: METH OD TRACEABLE TO IDMS STANDARD Performed By: #### C BCA, BMP, FEPR, 2275-4 #### [facility] ([id number]) [address] [address] [place] [address] eGFR (CKD-EPI) NON-RACE DEPENDENT >90 Normal >59 [facility] Comment on above: Result Comment: Reported eGFR is based on the CKD-EPI 2020 equation that does not use a race coefficient. Performed By: #### C BCA, BMP, FEPR, 6-4 #### [facility] ([id number]) [address] [address] [place] [address] Glucose [Mass/Vol] 89 mg/dL Normal 65-99 [facility] Comment on above: Performed By: #### C BCA, BMP, FEPR, 2275-4 #### [facility] ([id number]) [address] [address] [place] [address] Potassium [Moles/Vol] 4.2 mmol/L Normal 3.5-5.0 [facility] Comment on above: Performed By: #### C BCA, BMP, FEPR, 2275-4 #### [facility] ([id number]) [address], [address] [place] [address] Sodium [Moles/Vol] 138 mmol/L Normal 134-146 [facility] Comment on above: Performed By: #### C BCA, BMP, FEPR, 2275-4 #### [facility] ([id number]) [address], [facility] [address] [place] [address] Urea nitrogen [Mass/Vol] 18 mg/dL Normal 5-23 [facility] Comment on above: Performed By: #### C BCA, BMP, FEPR, 2275-4 #### [facility] ([id number]) [address] [address] [place] [address] CBC AND AUTO DIFFon 12-20-20 24 ABSOLUTE BASOPHIL 0.0 X10E9/L Normal 0.0-0.2 [facility] Comment on above: Performed By: #### C BCA, BMP, FEPR, 2275-4 #### [facility] ([id number]) [address] [address] [place] [address] ABSOLUTE NEUTROPHIL 5.7 X10E9/L Normal 1.5-6.[address] [facility] Comment on above: Performed By: #### C BCA, BMP, FEPR, 2275-4 #### [facility] ([id number]) [address] [address] [place] [address] Basophils/100 WBC (Bld) 0.4 % Normal [facility] Comment on above: Performed By: #### C BCA, BMP, FEPR, 2275-4 #### [facility] ([id number]) [address] [address] [place] [address] Eosinophils (Bld) [#/Vol] 0.1 10*3/uL Normal 0.0-0.4 [facility] Comment on above: Performed By: #### C BCA, BMP, FEPR, 2275-4 #### [facility] ([id number]) [address], [address] [place] [address] Eosinophils/100 WBC (Bld) 1.2 % Normal [facility] Comment on above: Performed By: #### C BCA, BMP, FEPR, 2275-4 #### [facility] ([id number]) [address], [facility] [address] [place] [address] Erythrocyte distribution width (RBC) [Ratio] 14.4 % Normal 11.5-15.0 [facility] Comment on above: Performed By: #### C BCA, BMP, FEPR, 2275- #### [facility] ([id number]) [address] [address] [place] [address] Hematocrit (Bld) [Volume fraction] 37.4 % Normal 35-47 [facility] Comment on above: Performed By: #### C BCA, BMP, FEPR, 2275- #### [facility] ([id number]) [address] [address] [place] [address] Hemoglobin (Bld) [Mass/Vol] 12.4 g/dL Normal 11.7-15.5 [facility] Comment on above: Performed By: #### C BCA, BMP, FEPR, 2275- #### [facility] ([id number]) [address] [address] [place] [address] Lymphocytes (Bld) [#/Vol] 2.4 10*3/uL Normal 1.0-3.5 [facility] Comment on above: Performed By: #### C BCA, BMP, FEPR, 2275-4 #### [facility] ([id number]) [address] [address] [place] [address] Lymphocytes/100 WBC (Bld) 28.1 % Normal [facility] Comment on above: Performed By: #### C BCA, BMP, FEPR, 2275- #### [facility] ([id number]) [address], [address] [place] [address] MCH (RBC) [Entitic mass] 28.8 pg Normal 27-34 [facility] Comment on above: Performed By: #### C BCA, BMP, FEPR, 6-4 #### [facility] ([id number]) [address], [address] [place] [address] MCHC (RBC) [Mass/Vol] 33.1 g/dL Normal 32-36 [facility] Comment on above: Performed By: #### C BCA, BMP, FEPR, 6-4 #### [facility] ([id number]) [address] [facility] [address] [place] [address] MCV (RBC) [Entitic vol] 87 fL Normal 80-100 [facility] Comment on above: Performed By: #### C BCA, BMP, FEPR, 2275- #### [facility] ([id number]) [address], [address] [place] [address] Monocytes (Bld) [#/Vol] 0.3 10*3/uL Normal 0-0.9 [facility] Comment on above: Performed By: #### C BCA, BMP, FEPR, 2275- #### [facility] ([id number]) [address], [facility] [address] [place] [address] Monocytes/100 WBC (Bld) 3.0 % Normal [facility] Comment on above: Performed By: #### C BCA, BMP, FEPR, 2275-4 #### [facility] ([id number]) [address] [address] [place] [address] Neutrophils/100 WBC (Bld) 67.3 % Normal [facility] Comment on above: Performed By: #### C BCA, BMP, FEPR, 6-4 #### [facility] ([id number]) [address], [facility] [address] [place] [address] Platelet mean volume (Bld) [Entitic vol] 8.8 fL Normal 7-12 [facility] Comment on above: Performed By: #### C BCA, BMP, FEPR, 2275-4 #### [facility] ([id number]) [address] [address] [place] [address] Platelets (Bld) [#/Vol] 325 10*3/uL Normal 150-450 [facility] Comment on above: Performed By: #### C BCA, BMP, FEPR, 2275-4 #### [facility] ([id number]) [address], [facility] [address] [place] [address] RBC COUNT 4.31 X10E12/L Normal 3.80-5.20 [facility] Comment on above: Performed By: #### C BCA, BMP, FEPR, 2275-4 #### [facility] ([id number]) [address] [address] [place] [address] WBC (Bld) [#/Vol] 8.4 10*3/uL Normal 4.0-11.0 [facility] Comment on above: Performed By: #### C BCA, BMP, FEPR, 2275-4 #### [facility] ([id number]) [address], [facility] [address] [place] [address] FERRITINon 12-21-2023 Ferritin [Mass/Vol] 195 ng/mL Normal 11-307 [facility] Comment on above: Performed By: #### C BCA, CMP, 96613-0, TSHR #### [facility] ([id number]) [address], [facility] [address] [place] [address] IRON PROFILEon 12-21-2023 Iron [Mass/Vol] 53 ug/dL Normal 50-170 [facility] Comment on above: Performed By: #### C BCA, BMP, FEPR, 2275-4 #### [facility] ([id number]) [address], [address] [place] [address] IRON BINDING 374 ug/dL Normal 250-425 [facility] Comment on above: Performed By: #### C BCA, BMP, FEPR, 2276-4 #### [facility] ([id number]) [address], [address] [place] [address] IRON SATURATION 14 % SATURATION Low 15-[address] [facility] Comment on above: Performed By: #### C BCA, BMP, FEPR, 2276-4 #### [facility] ([id number]) [address], [address] [place] [address] CT Cervical spine WO contras ton 04-20-2023 Radiology Study observation (narrative) [facility] CT Head WO contraston 2023 Radiology Study observation (narrative) [facility] No Panel Informationon 04-[address] abnormality identified in the brain. No acute osseous abnormality identified in the cervical spine. [facility] RIS CONSOLIDATED EXAMINATION: CT OF THE CERVICAL [...] There is no prevertebral soft tissue swelling. [facility] Andi Alvarez MD - 04/20/2023 EXAMINATION: [...] osseous abnormality identified in the cervical spine. [facility] No Panel InformationOrdered By: Andi Montoya on 04-20-2023 [facility] Work Phone: Glucose Glucometer (BldC) [M ass/Vol]on 03-27-2023 Glucose [Mass/Vol] 151 mg/dL High 65-99 [facility] CBC AND AUTO DIFFon 03-16-19 24 ABSOLUTE BASOPHIL 0.0 X10E9/L Normal 0.0-0.2 [facility] Comment on above: Performed By: #### C JAHAIRA BURGESS, 10166-8, TSHR #### [facility] ([id number]) [address], [address] [place] [address] ABSOLUTE NEUTROPHIL 7.7 X10E9/L High 1.5-6.[address] [facility] Comment on above: Performed By: #### Terrell BURGESS CMP, 23272-1, TSHR #### [facility] ([id number]) [address], [address] [place] [address] Basophils/100 WBC (Bld) 0.3 % Normal [facility] Comment on above: Performed By: #### Terrell BURGESS CMP, 83974-4, TSHR #### [facility] ([id number]) [address], [address] [place] [address] Eosinophils (Bld) [#/Vol] 0.1 10*3/uL Normal 0.0-0.4 [facility] Comment on above: Performed By: #### C JAHAIRA BURGESS, 13182-2, TSHR #### [facility] ([id number]) [address], [address] [place] [address] Eosinophils/100 WBC (Bld) 1.1 % Normal [facility] Comment on above: Performed By: #### Terrell BURGESS CMP, 96062-1, TSHR #### [facility] ([id number]) [address], [address] [place] [address] Erythrocyte distribution width (RBC) [Ratio] 14.6 % Normal 11.5-15.0 [facility] Comment on above: Performed By: #### Terrell BURGESS CMP, 41780-1, TSHR #### [facility] ([id number]) [address] [place] [address] Hematocrit (Bld) [Volume fraction] 45.7 % Normal 35-47 [facility] Comment on above: Performed By: #### Terrell BURGESS CMP, 32665-7, TSHR #### [facility] ([id number]) [address], [address] [place] [address] Hemoglobin (Bld) [Mass/Vol] 15.0 g/dL Normal 11.7-15.5 [facility] Comment on above: Performed By: #### Terrell BURGESS CMP, 14081-0, TSHR #### [facility] ([id number]) [address], [address] [place] [address] Lymphocytes (Bld) [#/Vol] 2.4 10*3/uL Normal 1.0-3.5 [facility] Comment on above: Performed By: #### Terrell BURGESS CMP, 29928-5, TSHR #### [facility] ([id number]) [address], [address] [place] [address] Lymphocytes/100 WBC (Bld) 22.1 % Normal [facility] Comment on above: Performed By: #### C ADITYA CMP, 28050-4, TSHR #### [facility] ([id number]) [address], [address] [place] [address] MCH (RBC) [Entitic mass] 29.0 pg Normal 27-34 [facility] Comment on above: Performed By: #### Terrell BURGESS CMP, 77022-2, TSHR #### [facility] ([id number]) [address], [address] [place] [address] MCHC (RBC) [Mass/Vol] 32.8 g/dL Normal 32-36 [facility] Comment on above: Performed By: #### C ADITYA, CMP, 35648-8, TSHR #### [facility] ([id number]) [address], [address] [place] [address] MCV (RBC) [Entitic vol] 88 fL Normal 80-100 [facility] Comment on above: Performed By: #### Terrell BCA, CMP, 80925-0, TSHR #### [facility] ([id number]) [address], [address] [place] [address] Monocytes (Bld) [#/Vol] 0.6 10*3/uL Normal 0-0.9 [facility] Comment on above: Performed By: #### Terrell BCA, CMP, 72155-2, TSHR #### [facility] ([id number]) [address], [address] [place] [address] Monocytes/100 WBC (Bld) 5.7 % Normal [facility] Comment on above: Performed By: #### C BCA, CMP, 89113-4, TSHR #### [facility] ([id number]) [address], [address] [place] [address] Neutrophils/100 WBC (Bld) 70.8 % Normal [facility] Comment on above: Performed By: #### C BCA, CMP, 19741-3, TSHR #### [facility] ([id number]) [address], [address] [place] [address] Platelet mean volume (Bld) [Entitic vol] 9.7 fL Normal 7-12 [facility] Comment on above: Performed By: #### C BCA, CMP, 44260-9, TSHR #### [facility] ([id number]) [address], [facility] [address] [place] [address] Platelets (Bld) [#/Vol] 303 10*3/uL Normal 150-450 [facility] Comment on above: Performed By: #### C BCA, CMP, 59405-7, TSHR #### [facility] ([id number]) [address] [facility] [address] [place] [address] RBC COUNT 5.17 X10E12/L Normal 3.80-5.20 [facility] Comment on above: Performed By: #### C BCA, CMP, 95735-7, TSHR #### [facility] ([id number]) [address] [address] [place] [address] WBC (Bld) [#/Vol] 10.9 10*3/uL Normal 4.0-11.0 [facility] Comment on above: Performed By: #### C BCA, CMP, 99986-4, TSHR #### [facility] ([id number]) [address], [address] [place] [address] COMPREHENSIVE METABOLIC PANE Dirk 03-16-2023 Albumin [Mass/Vol] 4.7 g/dL Normal 3.2-5.3 [facility] Comment on above: Performed By: #### C BCA, CMP, 09029-5, TSHR #### [facility] ([id number]) [address], [address] [place] [address] ALP [Catalytic activity/Vol] 74 U/L Normal 39-130 [facility] Comment on above: Performed By: #### C BCA, CMP, 92069-9, TSHR #### [facility] ([id number]) [address], [address] [place] [address] ALT [Catalytic activity/Vol] 22 U/L Normal 0-31 [facility] Comment on above: Performed By: #### C BCA, CMP, 00858-6, TSHR #### [facility] ([id number]) [address], [address] [place] [address] Anion gap [Moles/Vol] 12 mmol/L Normal 5-15 [facility] Comment on above: Performed By: #### C BCA, CMP, 59494-0, TSHR #### [facility] ([id number]) [address] [place] [address] AST [Catalytic activity/Vol] 20 U/L Normal 0-41 [facility] Comment on above: Performed By: #### C BCA, CMP, 30728-2, TSHR #### [facility] ([id number]) [address], [address] [place] [address] Bilirubin [Mass/Vol] 0.5 mg/dL Normal 0.3-1.[address] [facility] Comment on above: Performed By: #### C BCA, CMP, 33013-8, TSHR #### [facility] ([id number]) [address], [address] [place] [address] Calcium [Mass/Vol] 9.9 mg/dL Normal 8.5-10.5 [facility] Comment on above: Performed By: #### C BCA, CMP, 13444-2, TSHR #### [facility] ([id number]) [address], [address] [place] [address] Chloride [Moles/Vol] 105 mmol/L Normal 98-[address] [facility] Comment on above: Performed By: #### C JAHAIRA BURGESS, 89713-4, TSHR #### [facility] ([id number]) [address] [address] [place] [address] CO2 [Moles/Vol] 25 mmol/L Normal 22-32 [facility] Comment on above: Performed By: #### C JAHAIRA BURGESS, 52541-0, TSHR #### [facility] ([id number]) [address], [address] [place], [place] [address] Creatinine [Mass/Vol] 0.74 mg/dL Normal 0.40-1.00 [facility] Comment on above: Result Comment: METH OD TRACEABLE TO IDMS STANDARD Performed By: #### C JAHAIRA BURGESS, 18799-9, TSHR #### [facility] ([id number]) [address], [address] [place] [address] eGFR (CKD-EPI) NON-RACE DEPENDENT >90 Normal >59 [facility] Comment on above: Result Comment: Reported eGFR is based on the CKD-EPI 2020 equation that does not use a race coefficient. Performed By: #### C JAHAIRA BURGESS, 25444-1, TSHR #### [facility] ([id number]) [address] [address] [place] [address] Glucose [Mass/Vol] 143 mg/dL High 65-99 [facility] Comment on above: Performed By: #### C JAHAIRA BURGESS, 17727-2, TSHR #### [facility] ([id number]) [address] [facility] [place] [address] Potassium [Moles/Vol] 3.8 mmol/L Normal 3.5-5.0 [facility] Comment on above: Performed By: #### C ADITYA CMP, 86112-0, TSHR #### [facility] ([id number]) [address] [address] [place] [address] Protein [Mass/Vol] 7.8 g/dL Normal 6.0-8.0 [facility] Comment on above: Performed By: #### C JAHAIRA BURGESS, 93272-8, TSHR #### [facility] ([id number]) [address], [address] [place] [address] Sodium [Moles/Vol] 142 mmol/L Normal 134-146 [facility] Comment on above: Performed By: #### Terrell BURGESS CMP, 57408-0, TSHR #### [facility] ([id number]) [address], [address] [place] [address] Urea nitrogen [Mass/Vol] 17 mg/dL Normal 5-23 [facility] Comment on above: Performed By: #### Terrell BURGESS CMP, 59899-9, TSHR #### [facility] ([id number]) [address], [address] [place] [address] HGB A1C (GLYCO-HGB)on 2023 Glucose [Mass/Vol] 117 mg/dL Normal [facility] Comment on above: Performed By: #### Terrell BURGESS CMP, 59003-2, TSHR #### [facility] ([id number]) [address], [address] [place] [address] HbA1c (Bld) [Mass fraction] 5.7 % High 4.4-5.6 [facility] Comment on above: Result Comment: NOTE ADA Guidelines Result HgbA1c Normal : less than 5.7 % Prediabetes : 5.7 % to 6.4 % Diabetes : > 6.4 % Use with caution in patients with abnormal hemoglobin variants as the half-life of red blood cells and in vivo glycation rates are affected. Performed By: #### C JAHAIRA BURGESS, 27123-4, TSHR #### [facility] ([id number]) [address], [address] [place] [address] Lipid 1996 panelon 4 Cholesterol [Mass/Vol] 132 mg/dL Low 150-200 [facility] Comment on above: Performed By: #### Terrell BURGESS, JAHAIRA, 07954-7, TSHR #### [facility] ([id number]) [address], [address] [place] [address] Cholesterol in HDL [Mass/Vol] 58 mg/dL Normal >39 [facility] Comment on above: Result Comment: HDL <40 mg/dL - High Risk HDL > or = 40mg/dL- Desirable HDL >60 mg/dL - Negative Risk Performed By: #### Terrell BURGESS, JAHAIRA, 70377-7, TSHR #### [facility] ([id number]) [address], [address] [place] [address] Cholesterol in LDL [Mass/Vol] 51 mg/dL Normal <130 [facility] Comment on above: Result Comment: LDL <100 mg/dL - Desirable LDL >160 mg/dL - High Risk Performed By: #### C ADITYA, JAHAIRA, 15078-4, TSHR #### [facility] ([id number]) [address], [address] [place] [address] Cholesterol in VLDL [Mass/Vol] 23 mg/dL Normal 0-30 [facility] Comment on above: Performed By: #### Terrell BURGESS, JAHAIRA, 59519-4, TSHR #### [facility] ([id number]) [address], [address] [place] [address] CHOLESTEROL:HDL 2.3 Normal 1.0-5.0 [facility] Comment on above: Performed By: #### C ADITYA, CMP, 18609-0, TSHR #### [facility] ([id number]) [address], [address] [place] [address] Triglyceride [Mass/Vol] 114 mg/dL Normal 27-150 [facility] Comment on above: Performed By: #### C BCA, CMP, 16871-3, TSHR #### [facility] ([id number]) [address], [address] [place] [address] MAMM SCREENING BILATERAL W C coatings inspector 03-16-2023 MAMM SCREENING BILATERAL W CAD MAMM [...] PM 0A a ADDITIONAL I Normal [facility] TSH WITH REFLEXon 03-16-2023 TSH 0.55 uIU/mL Normal 0.49-4.67 [facility] Comment on above: Performed By: #### C BCA, CMP, 80232-7, TSHR #### [facility] ([id number]) [address] [place] [address] PT - Assessmentson 3 PT - Assessments [id number]#1 .00CD:[address] [facility] ST - Assessmentson 3 ST - Assessments [id number]#1. 00CD:[address] [facility] Consenton 09-25-2022 Consent [id number]#1. 00CD:127 [facility] Outside Recordson 2022 Outside Records [id number]#1. 00CD:[address] [facility] [address] - Orderson 2022 ST - Orders [id number]#1. 00CD:[address] [facility] [address] - Orders [id number]#1. 00CD:[address] [facility] ST - Otheron 2022 ST - Other [id number]#1. 00CD:127 [facility] PAP ACOG PANEL 2: 30 to 65on 05-27-2022 . . Normal [facility] Comment on above: Result Comment: Perf ormed at: WB Performed By: #### 4 [id number] #### [facility] [address] [place] [address] Dr. Do Aguilar Age Gdln ACOG Testing - Normal [facility] Comment on above: Performed By: #### 4 [id number] #### [facility] [id number] Do Aguilar DIAGNOSIS: Comment Normal [facility] Comment on above: Result Comment: NEGA TIVE FOR INTRAEPITHELIAL LESION OR MALIGNANCY. Performed at: WB Performed By: #### 4 [id number] #### [facility] [address] [address] [address] Do Aguilar HPV Aptima Negative Normal Negative [facility] Comment on above: Result Comment: This nucleic acid amplification test detects fourteen high-risk HPV types (16,18,31,33,35,39,45,51,52,56,58,59,66,68) without differentiation. Performed at: =G Performed By: #### 4 [id number] #### [facility] [address] [place] [address] Dr. Do Aguilar HPV Genotype Reflex Comment Normal [facility] Comment on above: Result Comment: Crit eria not met, HPV Genotype not performed. Performed at: WB Performed By: #### 4 [id number] #### [facility] [address] [place] [address] Dr. Do Aguilar Methodology: Comment Normal [facility] Comment on above: Result Comment: This liquid based ThinPrep(R) pap test was screened with the use of an image guided system. Performed at: WB Performed By: #### 4 [id number] #### [facility] [address] [place] [address] Dr. Do Aguilar Note: Comment Normal [facility] Comment on above: Result Comment: The Pap smear is a screening test designed to aid in the detection of premalignant and malignant conditions of the uterine cervix. It is not a diagnostic procedure and should not be used as the sole means of detecting cervical cancer. Both false-positive and false-negative reports do occur. . Performed at: WB Performed By: #### 4 [id number] #### [facility] [address] [place] [address] Dr. Do Aguilar Performed by: Comment Normal [facility] Comment on above: Result Comment: Melissa Ramachandran, Communication Professor (ASCP) Performed at: WB Performed By: #### 4 [id number] #### [facility] [address] [place] [address] Dr. Do Aguilar Specimen adequacy: Comment Normal [facility] Comment on above: Result Comment: Sati sfactory for evaluation. Endocervical and/or squamous metaplastic cells (endocervical component) are present. Performed at: WB Performed By: #### 4 [id number] #### [facility] [address] [place] [address] Dr. Do Aguilar HEPATITIS C AB CASCADE TO QU ANT PCR GENOon 02-18-2022 HCV AB <0.1 Normal 0.0-0.9 [facility] Comment on above: Performed By: #### H EPCASC #### [facility] [address] [place] [address] Dr. Do Aguilar Interpretation: Comment Normal [facility] Comment on above: Result Comment: Nega tive Not infected with HCV, unless recent infection is suspected or other evidence exists to indicate HCV infection. Performed By: #### H EPCASC #### [facility] [address] [place] [address] Dr. Do Aguilar LIVER PROFILEon 02-17-2022 Albumin [Mass/Vol] 3.6 g/dL Normal 3.4-5.0 [facility] Comment on above: Performed By: #### L IVER #### [facility] [address] [place] [address] Dr. Do Aguilar Albumin/Globulin [Mass ratio] 0.9 {ratio} Normal [facility] Comment on above: Performed By: #### L IVER #### [facility] [address] [place] [address] Dr. Do Aguilar ALP [Catalytic activity/Vol] 79 U/L Normal 46-116 [facility] Comment on above: Performed By: #### L IVER #### [facility] [address] [place] [address] Dr. Do Aguilar ALT [Catalytic activity/Vol] 51 U/L Normal 14-59 [facility] Comment on above: Performed By: #### L IVER #### [facility] [address] [place] [address] Dr. Do Aguilar AST [Catalytic activity/Vol] 33 U/L Normal 15-37 [facility] Comment on above: Performed By: #### L IVER #### [facility] [address] [place] [address] Dr. Do Aguilar BILI, CONJUGATED 0.1 mg/dL Normal 0.0-0.2 [facility] Comment on above: Performed By: #### L IVER #### [facility] [address] [address] [address] Do Aguilar Bilirubin [Mass/Vol] 0.3 mg/dL Normal 0.2-1.0 [facility] Comment on above: Performed By: #### L IVER #### [facility] [address] [address] [address] Do Aguilar Globulin (S) [Mass/Vol] 4.2 g/dL Normal [facility] Comment on above: Performed By: #### L IVER #### [facility] [address] [address] [address] Do Aguilar Protein [Mass/Vol] 7.8 g/dL Normal 6.4-8.2 [facility] Comment on above: Performed By: #### L IVER #### [facility] [address] [place] [address] Dr. Do Aguilar TSHon 02-17-2022 TSH 0.457 uIU/mL Normal 0.358-3.740 [facility] Comment on above: Performed By: #### T SH #### [facility] [address] [place] [address] Dr. Do Aguilar VITAMIN B12on 02-17-2022 Cobalamin (Vitamin B12) [Mass/Vol] 1864.0 pg/mL Critically high 193.0-986.0 [facility] Comment on above: Performed By: #### V ITB12 #### [facility] [address] [place] [address] Dr. Do Aguilar History and Physicalon 12-04 History and Physical [id number] [facility] Operative Report - Surgeon/P godwin 12-04-2016 Operative Report - Surgeon/Physician [id number]#1.[address] [facility] Coding Summaryon 11-26-2016 Coding Summary CODING DATE: 11/26/2016 [facility] STATUS: Home PAYOR: Medicaid HMO ADMIT DX: REASON FOR VISIT DX: R10.13 Epigastric pain R10.11 Right upper quadrant pain FINAL DX: PRINCIPAL: K29.70 Gastritis, unspecified, without bleeding SECONDARY: PROCEDURES DOCTOR NAME DATE 57986 Esophagogastroduodenos copy, Juan Ramon Jean MD 11/21/2016 flexible, transoral; with biopsy, single or multiple NOTE: The code number assigned matches the documented diagnosis and / or procedure in the patient's chart. However, the narrative phrase printed from the coding software may appear abbreviated, or result in slightly different terminology. Coded By: Rosalba Laureano Date Saved: 11/26/2016 01:09 pm [facility] Consent Formson 11-24-2016 Consent Forms [id number] [facility] Intraoperative Noteon 2016 Intraoperative Note [id number] [facility] Intraoperative Note [id number]#1.00[facility] Operative Report - Surgeon/P godwin 11-24-2016 Operative Report - Surgeon/Physician DATE OF PROCEDURE: 11/21/2016PREOPERATIVE DIAGNOSIS: Epigastric pain/right upper quadrant pain.POSTOPERATIVE DIAGNOSIS: Moderate gastritis.PROCEDURE PERFORMED: EGD with biopsy x1 from the antrum of the stomach forH. pylori testing.SURGEON: Juan Ramon Jean M.D.ANESTHESIA: Conscious sedation with Versed 6 mg IV, Demerol 50 mg IV.FINDINGS: As above.DISPOSITION: To the [facility] area in fair condition.INDICATIONS: The patient [...] in two weeks.Juan Ramon Jean M.D.JOB #: [id number]: 11/21/2016T: 11/21/2016[Electronica lly Signed on: 12/03/2016 07:09 EDT] Juan Ramon Jean MD Ge nerated Domain User for [id number][Verified on: 12/03/2016 07:09 EDT] Juan Ramon Jean MD[Transcribed on: 11/21/2016 11:37 EDT][facility] Telemetry Stripson 7 Telemetry Strips [id number]#1.00 [facility] [id number] [facility] H. Pylori Gastricon 11-22-19 17 H. Pylori Rico Int Ctrl Pass [facility] Comment on above: Order Comment: H. (A NTRUM) Result Comment: Pass Performed By: #### 2 [id number] ####[facility] (DEFAULT)[address] [place] [address] H. Pylori Gastric Negative Normal Negative [facility] Comment on above: Order Comment: H. (A NTRUM) Result Comment: Malissa spivey Performed By: #### 2 [id number] ####[facility] (DEFAULT)[address] [place] [address] Inpatient Clinical Summaryon 11-21-2016 Inpatient Clinical Summary [facility] SURGERYClinical Discharge SummaryPERSON INFORMATIONName KARMA SR Age 36 Years [birth year]/Sex FEMALE Language Uruguayan PCP DEFRANCE, DAVIDMarital Status Med Service Ambulatory SurgeryMRN [id number] Acct# Arrival 11/21/16 07:22:21Visit Reason EGD - EPIGASTRIC ABDOMINAL PAIN Acuity LOS 013 23:19Address:[address] [address]Reppxbf:PROVIDER INFORMATIONVITALS INFORMATIONVital Sign Triage LatestTemp OralTemp Temporal 36.4 DegC 36.4 DegCTemp IntravascularTemp AxillaryTemp Mnormn53 Sat 100 % 97 %Respiratory Rate 16 [...] INFORMATIONInstruction s:Follow up:With: Address: When:Juan Ramon Jean [address] [place] [address] Business (1) Within 2 to 4 weeksComments:Call for follow up appointmentWith: Address: When:DOMENICA OLIVA [address] [place], [place] [id number] Business (1)DIAGNOSISAcute gastritisComment:PHYS DOC NOTES Normal [facility] Inpatient Patient Summaryon 11-21-2016 Inpatient Patient Summary [address] [place] [id number] patient Discharge InstructionsName: ANDREAS SRB: 80 Address: [address] [place] [address] Care Provider:Name: DOMENICA OLIVAPhone: Discharge Diagnosis: Acute [...] decisions or sign any legal documentsKettering Health Main Campus would like to thank you for allowing us to assist you with your healthcare needs. The following includes patient education materials and information regarding your injury/illness.KARMA SR has been given the following list of follow-up instructions, prescriptions, and patient education materials:Follow-up InstructionsWith: Address: When:Juan Ramon Jean [address] [place] [address] Business (1) Within 2 to 4 weeksComments:Call for follow up appointmentWith: Address: When:DOMENICA OLIVA [address] [place] [address] Business (1)MedicationsDuring the course of your visit, [...] for Disease Control and Prevention October 2013 [facility] MAGR Endo Intraoperative Rec ordon 11-21-2016 [facility] Intraoperative Record [facility] Intra-Op Record Summary Primary Physician: Juan Ramon Jean MD Finalized Date/Time: 11/21/16 08:37:38 Pt. Name: KARMA SR/Sex: 1980 FEMALE Med Rec #: [id number] Physician: Juan Ramon Jean MD Financial #: [id number] Pt. Type: D Room/Bed: / Admit/Disch: 11/21/16 [...] Jane RN Role Performed Surgeon - Primary Box Finisher Box Finisher Time In 11/21/16 08:06:00 11/21/16 08:06:00 11/21/16 [...] Unfinalizing Freetext Reason for Unfinalizing 11/21/16 08:37 [facility] Modify Pick List Normal [facility] MAGR Endo Postoperative Benjamin rdon 11-21-2016 [facility] Postoperative Record [facility] Phase II Record Summary Primary Physician: Juan Ramon Jean MD Finalized Date/Time: 11/21/16 10:02:07 Pt. Name: KARMA SR/Sex: 1980 FEMALE Med Rec #: [id number] Physician: Juan Ramon Jean MD Financial #: [id number] Pt. Type: D Room/Bed: / Admit/Disch: 11/21/16 [...] Signed By: Cammy Barroso RN 11/21/16 [facility] 11-21-2016 [facility] Endo Preoperative Record [facility] Pre-Op Record Summary Primary Physician: Juan Ramon Jean MD Finalized Date/Time: 11/21/16 08:27:58 Pt. Name: KARMA SR/Sex: 1980 FEMALE Med Rec #: [id number] Physician: Juan Ramon Jean MD Financial #: [id number] Pt. Type: D Room/Bed: / Admit/Disch: 11/21/16 [...] Signed By: Cammy Barroso RN 11/21/16 08:27 [facility] Test Urine 1on U Preg Negative [facility] Comment on above: Result Comment: Nega tive Performed By: #### 3 [id number] ####[facility] (DEFAULT)[address] [place] [address] U Preg Internal Control Pass [facility] Comment on above: Result Comment: Pass Performed By: #### 3 [id number] ####[facility] (DEFAULT)[address] [place] [address] Vital Signs Date Time Vital Sign Value Performing Clinician Facility 11-17-2024 23:29-0400 Diastolic blood pressure 64 mm[Hg] Benja Walker MD Work Phone: [facility] 11-17-2024 23:29-0400 SaO2% (BldA) [Mass fraction] 91 % Benja Walker MD Work Phone: [facility] 11-17-2024 23:29-0400 Systolic blood pressure 93 mm[Hg] Benja Walker MD Work Phone: [facility] 11-17-2024 23:27-0400 Body temperature 97.59 [degF] Benja Walker MD Work Phone: [facility] 11-17-2024 23:27-0400 Heart rate 76 /min [facility] 11-17-2024 23:27-0400 Respiratory rate 18 /min Benja Walker MD [facility] 11-17-2024 20:58-0400 Body height 160 cm Benja Walker MD [facility] 11-17-2024 20:58-0400 Body mass index (BMI) [Ratio] 40.74 kg/m2 Benja Walker MD [facility] 11-17-2024 20:58-0400 Body weight 104.33 kg Benja Walker MD [facility] [employer] 11-17-2024 08:50-0400 Body height 160.02 cm Davie Mcneal APRN Work Phone: [facility] 11-17-2024 08:50-0400 Body mass index (BMI) [Ratio] 38 kg/m2 Davie Fredis HYLTON Work Phone: [facility] 11-17-2024 08:50-0400 Body weight 97.3 kg Davie Rayoziel HYLTON Work Phone: [facility] 11-15-2024 18:15-0400 Diastolic blood pressure 74 mm[Hg] Martir Stovall MD [facility] 11-15-2024 18:15-0400 Heart rate 81 /min Martir Stovall MD [facility] 11-15-2024 18:15-0400 Respiratory rate 13 /min Martir Stovall MD [facility] 11-15-2024 18:15-0400 SaO2% (BldA) [Mass fraction] 97 % Martir Stovall MD Work Phone: [facility] 11-15-2024 18:15-0400 Systolic blood pressure 114 mm[Hg] Martir Stovall MD Work Phone: [facility] 11-15-2024 15:00-0400 Body height 160 cm Martir Stovall MD Work Phone: [facility] 11-15-2024 15:00-0400 Body mass index (BMI) [Ratio] 40.74 kg/m2 Martir Stovall MD Work Phone: [facility] 11-15-2024 15:00-0400 Body temperature 97 [degF] Martir tSovall MD Work Phone: [facility] 11-15-2024 15:00-0400 Body weight 104.33 kg Martir Stovall MD Work Phone: [facility] 11-11-2024 14:02-0400 Body height 160 cm Shira Cardoso DO Work Phone: [facility] 11-11-2024 14:02-0400 Body mass index (BMI) [Ratio] 40.74 kg/m2 Shira Cardoso DO Work Phone: [facility] 11-11-2024 14:02-0400 Body weight 104.33 kg Shira Cardoso DO Work Phone: [facility] 11-03-2024 15:54-0400 Diastolic blood pressure 74 mm[Hg] 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 Work Phone: [facility] 11-03-2024 15:54-0400 Heart rate 78 /min 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 Work Phone: [facility] 11-03-2024 15:54-0400 Systolic blood pressure 126 mm[Hg] 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 Work Phone: [facility] 11-02-2024 13:51-0400 Body mass index (BMI) [Ratio] 40.74 kg/m2 Roel Shirlene DO Work Phone: [facility] 11-02-2024 13:51-0400 Body weight 104.33 kg Roel Shirlene DO Work Phone: [facility] 11-02-2024 13:51-0400 Diastolic blood pressure 68 mm[Hg] Roel Shirlene DO Work Phone: [facility] 11-02-2024 13:51-0400 Systolic blood pressure 106 mm[Hg] Roel Shirlene DO Work Phone: [facility] 09-29-2024 10:19-0400 Body height 160 cm Shira Biedenbach DO Work Phone: [facility] 09-29-2024 10:19-0400 Body mass index (BMI) [Ratio] 40.74 kg/m2 Shira Biedenbach DO Work Phone: [facility] 09-29-2024 10:19-0400 Body weight 104.33 kg Shira Biedenbach DO Work Phone: [facility] 09-21-2024 13:48-0400 Diastolic blood pressure 84 mm[Hg] 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 Work Phone: [facility] 09-21-2024 13:48-0400 Heart rate 97 /min 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 Work Phone: [facility] 09-21-2024 13:48-0400 Respiratory rate 16 /min 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 Work Phone: [facility] 09-21-2024 13:48-0400 SaO2% (BldA) [Mass fraction] 91 % 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 Work Phone: [facility] 09-21-2024 13:48-0400 Systolic blood pressure 127 mm[Hg] 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 Work Phone: [facility] 09-21-2024 12:55-0400 Body temperature 97 [degF] 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 Work Phone: [facility] 09-21-2024 12:45-0400 Inhaled oxygen flow rate 3 L/min 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 Work Phone: [facility] 09-21-2024 11:00-0400 Body height 160.02 cm 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 Work Phone: [facility] 09-21-2024 11:00-0400 Body weight 97.52 kg 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 Work Phone: [facility] 09-20-2024 13:04-0400 Body height 160 cm Shira Biedenbach DO Work Phone: [facility] 09-20-2024 13:04-0400 Body mass index (BMI) [Ratio] 40.74 kg/m2 Shira Biedenbach DO Work Phone: [facility] 09-20-2024 13:04-0400 Body weight 104.33 kg Shira Biedenbach DO Work Phone: [facility] 09-01-2024 10:52-0400 Body height 160 cm Shira Biedenbach DO Work Phone: [facility] 09-01-2024 10:52-0400 Body mass index (BMI) [Ratio] 40.74 kg/m2 Shira Biedenbach DO Work Phone: [facility] 09-01-2024 10:52-0400 Body weight 104.33 kg Shira Biedenbach DO Work Phone: [facility] 08-19-2024 13:17-0400 Body height 160 cm Shira Biedenbach DO Work Phone: [facility] 08-19-2024 13:17-0400 Body mass index (BMI) [Ratio] 40.74 kg/m2 Shira Biedenbach DO Work Phone: [facility] 08-19-2024 13:17-0400 Body weight 104.33 kg Shira Cardoso DO Work Phone: [facility] 08-10-2024 12:13-0400 Diastolic blood pressure 73 mm[Hg] Davie Avaloserholtz SCRE[employer] CUTTER Work Phone: [facility] 08-10-2024 12:13-0400 Heart rate 97 /min Davie Baileyerholtz SCREW CUTTER Work Phone: [facility] 08-10-2024 12:13-0400 Respiratory rate 16 /min Davie Baileyerholtz SCREW CUTTER Work Phone: [facility] 08-10-2024 12:13-0400 SaO2% (BldA) [Mass fraction] 94 % Davie Baileyerholtz SCREW CUTTER Work Phone: [facility] 08-10-2024 12:13-0400 Systolic blood pressure 113 mm[Hg] Davie Avaloserholtz SCREW CUTTER Work Phone: [facility] 08-10-2024 10:50-0400 Body temperature 98 [degF] Davie Baileyerholtz SCREW CUTTER Work Phone: [facility] 08-10-2024 10:23-0400 Inhaled oxygen flow rate 8 L/min Davie Avaloserholtz SCREW CUTTER Work Phone: [facility] 08-10-2024 06:32-0400 Body height 160.02 cm Davie Myerholtz SCREW CUTTER Work Phone: [facility] 08-10-2024 06:32-0400 Body weight 106 kg Davie Avaloserholbrayan SCREW CUTTER Work Phone: [facility] 08-08-2024 13:24-0400 Body height 160.02 cm Davie Myerholtz SCREW CUTTER Work Phone: [facility] 08-08-2024 13:24-0400 Body mass index (BMI) [Ratio] 39.8 kg/m2 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 Work Phone: [facility] 08-08-2024 13:24-0400 Body weight 102.05 kg 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 Work Phone: [facility] 08-04-2024 10:45-0400 Body height 160 cm Cleo Zambrano MD Work Phone: [facility] 08-04-2024 10:45-0400 Body mass index (BMI) [Ratio] 41.45 kg/m2 Cleo Zambrano MD Work Phone: [facility] 08-04-2024 10:45-0400 Body weight 106.14 kg Cleo Zambrano MD Work Phone: [facility] 08-04-2024 10:45-0400 Diastolic blood pressure 70 mm[Hg] Cleo Zambrano MD Work Phone: [facility] 08-04-2024 10:45-0400 Heart rate 87 /min Cleo Zambrano MD Work Phone: [facility] 08-04-2024 10:45-0400 Respiratory rate 16 /min Cleo Zambrano MD Work Phone: [facility] 08-04-2024 10:45-0400 SaO2% (BldA) [Mass fraction] 97 % Cleo Zambrano MD Work Phone: [facility] 08-04-2024 10:45-0400 Systolic blood pressure 112 mm[Hg] Cleo Zambrano MD Work Phone: [facility] 08-02-2024 08:42-0400 Body mass index (BMI) [Ratio] 40.48 kg/m2 Roel Shirlene DO Work Phone: [facility] 08-02-2024 08:42-0400 Body weight 103.65 kg Roel Shirlene DO Work Phone: [facility] 08-02-2024 08:42-0400 Diastolic blood pressure 76 mm[Hg] Roel Shirlene DO Work Phone: [facility] 08-02-2024 08:42-0400 Systolic blood pressure 122 mm[Hg] Roel Shirlene DO Work Phone: [facility] 07-16-2024 11:06-0400 SaO2% (BldA) [Mass fraction] 93 % 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 - [employer] Work Phone: [employer] 07-16-2024 11:01-0400 Body height 160 cm 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 - [employer] Work Phone: [facility] [employer] 07-16-2024 11:01-0400 Body mass index (BMI) [Ratio] 38.97 kg/m2 Daive Mcneal SCREW C[employer]TER - [employer] Work Phone: [facility] [employer] 07-16-2024 11:01-0400 Body temperature 97.5 [degF] 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 - [employer]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: [employer] 07-16-2024 11:01-0400 Body weight 99.79 kg 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 - [employer] Work Phone: [employer] 07-16-2024 11:01-0400 Diastolic blood pressure 80 mm[Hg] Daviefer Mcneal 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 - [employer] Work Phone: [employer] 07-16-2024 11:01-0400 Heart rate 100 /min Davie Coryholbrayan 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 - [employer] Work Phone: [employer] 07-16-2024 11:01-0400 Respiratory rate 16 /min Daviefer Rayholbrayan SCREW CUTTER - [employer] Work Phone: [employer] 07-16-2024 11:01-0400 Systolic blood pressure 145 mm[Hg] Daviemelecio Mcneal APRN - [employer] Work Phone: [facility] 06-30-2024 09:56-0400 Diastolic blood pressure 92 mm[Hg] Roel Shirlene DO Work Phone: [facility] 06-30-2024 09:56-0400 Systolic blood pressure 128 mm[Hg] Roel Shirlene DO Work Phone: [facility] 06-13-2024 09:51-0400 Body height 160 cm Shira Biedenbach DO Work Phone: [facility] 06-13-2024 09:51-0400 Body mass index (BMI) [Ratio] 40.74 kg/m2 Shira Changenlorrie DO Work Phone: [facility] 06-13-2024 09:51-0400 Body weight 104.33 kg Shira Changenlorrie DO Work Phone: [facility] 06-02-2024 09:30-0400 Body height 160.02 cm Luz Maria Shammo [employer]PER[employer]OR[employer] Work Phone: [facility] 06-02-2024 09:30-0400 Body mass index (BMI) [Ratio] 38.7 kg/m2 Luz Maria Shammo [employer] SUPER[employer]OR[employer] Work Phone: [facility] 06-02-2024 09:30-0400 Body weight 99.1 kg Luz Maria Shammo [employer] SUPER[employer]OR[employer] Work Phone: [facility] 06-02-2024 09:30-0400 Diastolic blood pressure 74 mm[Hg] Luz Amria Shammo [employer] SUPERVISOR-BC Work Phone: [facility] 06-02-2024 09:30-0400 Systolic blood pressure 127 mm[Hg] Luz Maria Shammo [employer] SUPERVISOR[employer] Work Phone: [facility] 05-26-2024 11:32-0400 Body mass index (BMI) [Ratio] 40.39 kg/m2 Roel Shirlene DO Work Phone: [facility] 05-26-2024 11:32-0400 Body weight 103.42 kg Roel Shirlene DO Work Phone: [facility] 05-26-2024 11:32-0400 Diastolic blood pressure 78 mm[Hg] Roel Shirlene DO Work Phone: [facility] 05-26-2024 11:32-0400 Systolic blood pressure 128 mm[Hg] Roel Shirlene DO Work Phone: [facility] 04-28-2024 10:28-0500 Body height 160 cm Shira Biedenbach DO Work Phone: [facility] 04-28-2024 10:28-0500 Body mass index (BMI) [Ratio] 38.79 kg/m2 Shira Biedenbach DO Work Phone: [facility] 04-28-2024 10:28-0500 Body weight 99.34 kg Shira Biedenbach DO Work Phone: [facility] 04-18-2024 10:57-0500 Body mass index (BMI) [Ratio] 38.79 kg/m2 Roel Shirlene DO Work Phone: [facility] 04-18-2024 10:57-0500 Body weight 99.34 kg Roel Shirlene DO Work Phone: [facility] 04-18-2024 10:57-0500 Diastolic blood pressure 84 mm[Hg] Roel Shirlene DO Work Phone: [facility] 04-18-2024 10:57-0500 Systolic blood pressure 138 mm[Hg] Roel Shirlene DO Work Phone: [facility] 04-07-2024 10:31-0500 Body height 160 cm Cleo Zambrano MD Work Phone: [facility] 04-07-2024 10:31-0500 Body mass index (BMI) [Ratio] 39.33 kg/m2 Cleo Zambrano MD Work Phone: [facility] 04-07-2024 10:31-0500 Body weight 100.7 kg Cleo Zambrano MD Work Phone: [facility] 04-07-2024 10:31-0500 Diastolic blood pressure 82 mm[Hg] Cleo Zambrano MD Work Phone: [facility] 04-07-2024 10:31-0500 Heart rate 107 /min Cleo Zambrano MD Work Phone: [facility] 04-07-2024 10:31-0500 Respiratory rate 16 /min Cleo Zambrano MD Work Phone: [facility] 04-07-2024 10:31-0500 SaO2% (BldA) [Mass fraction] 98 % Cleo Zambrano MD Work Phone: [facility] 04-07-2024 10:31-0500 Systolic blood pressure 122 mm[Hg] Cleo Zambrano MD Work Phone: [facility] 01-21-2024 09:35-0500 Body height 160.02 cm Luz Maria Driver [employer] SUPERVISOR[employer] Work Phone: [facility] 01-21-2024 09:35-0500 Body mass index (BMI) [Ratio] 38.8 kg/m2 Luz Maria Beebemo [employer] SUPERVISOR[employer] Work Phone: [facility] 01-21-2024 09:35-0500 Body weight 99.4 kg Luz Maria Beebesd [employer] SUPER[employer]OR[employer] Work Phone: [facility] 01-13-2024 17:30-0500 Diastolic blood pressure 71 mm[Hg] Tirso Junior DO Work Phone: [employer] [facility] [employer] 01-13-2024 17:30-0500 Heart rate 95 /min Tirso Junior DO Work Phone: [employer] [facility] 01-13-2024 17:30-0500 SaO2% (BldA) [Mass fraction] 99 % Tirso Junior DO [facility] 01-13-2024 17:30-0500 Systolic blood pressure 131 mm[Hg] Tirso Uribebal DO Work Phone: [facility] 01-13-2024 15:30-0500 Respiratory rate 16 /min Tirso Uribebal DO Work Phone: [facility] 01-13-2024 14:24-0500 Body height 160 cm Tirso Uribebal DO Work Phone: [facility] 01-13-2024 14:24-0500 Body mass index (BMI) [Ratio] 37.55 kg/m2 Tirso Uribebal DO Work Phone: [facility] 01-13-2024 14:24-0500 Body temperature 98.1 [degF] Tirso Uribebal DO Work Phone: [facility] 01-13-2024 14:24-0500 Body weight 96.16 kg Tirso Junior DO Work Phone: [facility] 11-30-2023 11:10-0400 Body height 160 cm Brittany Neville [employer] Work Phone: [facility] 11-30-2023 11:10-0400 Body mass index (BMI) [Ratio] 35.96 kg/m2 Brittany Ana Maríamor [employer] Work Phone: [facility] 11-30-2023 11:10-0400 Body weight 92.08 kg Brittany Spencerr [employer] Work Phone: [facility] 11-30-2023 10:26-0400 Diastolic blood pressure 70 mm[Hg] Brittany Gottimor [employer] Work Phone: [facility] 11-30-2023 10:26-0400 Heart rate 90 /min Brittany Spencerr [employer] Work Phone: [facility] 11-30-2023 10:26-0400 SaO2% (BldA) [Mass fraction] 96 % Brittany Spencerr [employer] Work Phone: [facility] 11-30-2023 10:26-0400 Systolic blood pressure 118 mm[Hg] Brittany Neville JO ANN Work Phone: [facility] 10-08-2023 09:17-0400 Body height 160 cm Dwayne Khoury MD Work Phone: [facility] 10-08-2023 09:17-0400 Body mass index (BMI) [Ratio] 36.36 kg/m2 Dwayne Khoury MD Work Phone: [facility] 10-08-2023 09:17-0400 Body weight 93.1 kg Dwayne Khoury MD Work Phone: [facility] 10-08-2023 09:17-0400 Diastolic blood pressure 86 mm[Hg] Dwayne Khoury MD Work Phone: [facility] 10-08-2023 09:17-0400 Heart rate 102 /min Dwayne Khoury MD Work Phone: [facility] 10-08-2023 09:17-0400 Respiratory rate 16 /min Dwayne Khoury MD Work Phone: [facility] 10-08-2023 09:17-0400 Systolic blood pressure 145 mm[Hg] Dwayne Khoury MD Work Phone: [facility] 06-02-2023 14:32-0400 Body mass index (BMI) [Ratio] 36.67 kg/m2 Deepika Robledo MD Work Phone: [facility] 06-02-2023 14:32-0400 Body weight 93.89 kg Deepika Robledo MD Work Phone: [facility] 06-02-2023 14:32-0400 Diastolic blood pressure 102 mm[Hg] Deepika Robledo MD Work Phone: [facility] 06-02-2023 14:32-0400 Heart rate 83 /min Deepika Robledo MD Work Phone: [facility] 06-02-2023 14:32-0400 Systolic blood pressure 136 mm[Hg] Deepika Robledo MD Work Phone: [facility] 05-21-2023 11:22-0400 Body height 160.02 cm [facility] 05-21-2023 11:22-0400 Body mass index (BMI) [Ratio] 36.5 kg/m2 [facility] 05-21-2023 11:22-0400 Body weight 93.44 kg [facility] 05-21-2023 10:39-0400 Body height 160.02 cm [facility] 05-21-2023 10:39-0400 Body mass index (BMI) [Ratio] 36.5 kg/m2 [facility] 05-21-2023 10:39-0400 Body weight 93.49 kg [facility] 05-21-2023 10:39-0400 Diastolic blood pressure 77 mm[Hg] [facility] 05-21-2023 10:39-0400 Heart rate 105 /min [facility] 05-21-2023 10:39-0400 Respiratory rate 18 /min [facility] 05-21-2023 10:39-0400 SaO2% (BldA) [Mass fraction] 95 % [facility] 05-21-2023 10:39-0400 Systolic blood pressure 114 mm[Hg] [facility] 04-28-2023 11:21-0500 Body height 160 cm Gaurav CALVO Work Phone: [facility] 04-28-2023 11:21-0500 Body mass index (BMI) [Ratio] 36.14 kg/m2 Gaurav CALVO Work Phone: [facility] 04-28-2023 11:21-0500 Body weight 92.53 kg Gaurav CALVO Work Phone: [facility] 04-28-2023 11:21-0500 Diastolic blood pressure 82 mm[Hg] [facility]aurav CALVO [facility] 04-28-2023 11:21-0500 Heart rate 87 /min Gaurav Sellers PA Work Phone[facility] 04-28-2023 11:21-0500 Respiratory rate 16 /min Gaurav Parth PA Work [facility] 04-28-2023 11:21-0500 SaO2% (BldA) [Mass fraction] 97 % Gaurav Parth PA Work Phone: [facility] 04-28-2023 11:21-0500 Systolic blood pressure 122 mm[Hg] Gaurav Sellers PA Work Phone[facility] 04-20-2023 12:41-0500 Body mass index (BMI) [Ratio] 36.49 kg/m2 Shawna Rumschlag DO Work Phone: [employer] 04-20-2023 12:41-0500 Body weight 93.44 kg Shawna Rumschlag DO Work Phone: [employer] 04-20-2023 12:41-0500 Diastolic blood pressure 76 mm[Hg] Shawna Rumschlag DO Work Phone: [employer] 04-20-2023 12:41-0500 Heart rate 83 /min Shawna Rumschlag DO Work Phone: [employer] 04-20-2023 12:41-0500 Respiratory rate 16 /min Shawna Rumschlag DO Work Phone: [employer] 04-20-2023 12:41-0500 SaO2% (BldA) [Mass fraction] 98 % Shawna Rumschlag DO Work Phone: [employer] 04-20-2023 12:41-0500 Systolic blood pressure 129 mm[Hg] Shawna Rumschlag DO Work Phone: [employer] 04-20-2023 12:39-0500 Body temperature 97.3 [degF] Shawna Mcfadden DO Work Phone: [facility] 03-18-2023 11:30-0500 Diastolic blood pressure 84 mm[Hg] MD Yo Blank Work Phone: [facility] 03-18-2023 11:30-0500 Heart rate 95 /min MD Yo Blank Work Phone: [facility] 03-18-2023 11:30-0500 Respiratory rate 16 /min MD Yo Blank Work Phone: [facility] 03-18-2023 11:30-0500 SaO2% (BldA) [Mass fraction] 99 % MD oY Blank Work Phone: [facility] 03-18-2023 11:30-0500 Systolic blood pressure 123 mm[Hg] MD Yo Blank Work Phone: [facility] 03-05-2023 09:15-0500 Body height 160.02 cm Gayathri Scally Other [employer] Other 03-05-2023 09:15-0500 Body mass index (BMI) [Ratio] 37.57 kg/m2 Gayathri Scally Other [employer] Other 03-05-2023 09:15-0500 Body weight 96.21 kg Gayathri Scally Other [employer] Other 03-05-2023 09:15-0500 Diastolic blood pressure 89 mm[Hg] Gayathri Scally Other [employer] Other 03-05-2023 09:15-0500 Respiratory rate 18 /min Gayathri Scally Other [employer] Other 03-05-2023 09:15-0500 SaO2% (BldA) [Mass fraction] 96 % Gayathri Adams Other [employer] Other 03-05-2023 09:15-0500 Systolic blood pressure 122 mm[Hg] Gayathri Adams Other [employer] Other 03-02-2023 19:24-0500 Body height 160 cm Sil Sullivan DO Work Phone: [employer] 03-02-2023 19:24-0500 Body mass index (BMI) [Ratio] 36.31 kg/m2 Sil Sullivan DO Work Phone: [employer] 03-02-2023 19:24-0500 Body temperature 98.29 [degF] Sil Sullivan DO Work Phone: [employer] 03-02-2023 19:24-0500 Body weight 92.99 kg Sil Sullivan DO Work Phone: [employer] 03-02-2023 19:24-0500 Diastolic blood pressure 98 mm[Hg] Sil Sullivan DO Work Phone: [employer] 03-02-2023 19:24-0500 Heart rate 82 /min Sil Sullivan DO Work Phone: [employer] 03-02-2023 19:24-0500 Respiratory rate 18 /min Sil Sullivan DO Work Phone: [employer] 03-02-2023 19:24-0500 SaO2% (BldA) [Mass fraction] 98 % Sil Sullivan DO Work Phone: [employer] 03-02-2023 19:24-0500 Systolic blood pressure 139 mm[Hg] Sil Sullivan DO Work Phone: [employer] 02-05-2023 09:20-0500 Body height 160.02 cm Jan Scovanner Other [employer] Other 02-05-2023 09:20-0500 Body mass index (BMI) [Ratio] 36.66 kg/m2 Jan Scovanner Other [employer] Other 02-05-2023 09:20-0500 Body weight 93.9 kg Jan Scovanner Other [employer] Other 01-15-2023 09:45-0500 Body height 160.02 cm Gayathri Scally Other [employer] Other 01-15-2023 09:45-0500 Body mass index (BMI) [Ratio] 36.68 kg/m2 Gayathri Scally Other [employer] Other 01-15-2023 09:45-0500 Body weight 93.94 kg Gayathri Scally Other [employer] Other 01-15-2023 09:45-0500 Diastolic blood pressure 83 mm[Hg] Gayathri Scally Other [employer] Other 01-15-2023 09:45-0500 Respiratory rate 18 /min Gayathri Scally Other [employer] Other 01-15-2023 09:45-0500 SaO2% (BldA) [Mass fraction] 99 % Gayathri Scally Other [employer] Other 01-15-2023 09:45-0500 Systolic blood pressure 119 mm[Hg] Gayathri Scally Other [employer] Other 01-07-2023 10:00-0500 Body height 160.02 cm Jan Scovanner Other [employer] Other 01-07-2023 10:00-0500 Body mass index (BMI) [Ratio] 36.13 kg/m2 Jan Scovanner Other [employer] Other 01-07-2023 10:00-0500 Body weight 92.53 kg Jan Scovanner Other [employer] Other 01-07-2023 10:00-0500 Diastolic blood pressure 74 mm[Hg] Jan Scovanner Other [employer] Other 01-07-2023 10:00-0500 Systolic blood pressure 118 mm[Hg] Jna Scovanner Other [employer] Other 08-28-2022 09:00-0400 Body height 160.02 cm Tamar Fitt Other [employer] Other 08-28-2022 09:00-0400 Body mass index (BMI) [Ratio] 35.8 kg/m2 Tamar Fitt Other [employer] Other 08-28-2022 09:00-0400 Body weight 91.67 kg Tamar Fitt Other [employer] Other 07-29-2022 10:15-0400 Body height 160.02 cm Gayathri Scally Other [employer] Other 07-29-2022 10:15-0400 Body mass index (BMI) [Ratio] 35.18 kg/m2 Gayathri Scally Other [employer] Other 07-29-2022 10:15-0400 Body weight 90.08 kg Gayathri Scally Other [employer] Other 07-29-2022 10:15-0400 Diastolic blood pressure 84 mm[Hg] Gayathri Scally Other [employer] Other 07-29-2022 10:15-0400 Respiratory rate 18 /min Gayathri Scally Other [employer] Other 07-29-2022 10:15-0400 SaO2% (BldA) [Mass fraction] 99 % Gayathri Scally Other [employer] Other 07-29-2022 10:15-0400 Systolic blood pressure 127 mm[Hg] Gayathri Scally Other [employer] Other 05-20-2022 11:15-0400 Body height 160.02 cm Gayathri Scally Other [employer] Other 05-20-2022 11:15-0400 Body mass index (BMI) [Ratio] 34.52 kg/m2 Gayathri Scally Other [employer] Other 05-20-2022 11:15-0400 Body weight 88.41 kg Gayathri Scally Other [employer] Other 05-20-2022 11:15-0400 Diastolic blood pressure 82 mm[Hg] Gayathri Scally Other [employer] Other 05-20-2022 11:15-0400 Respiratory rate 18 /min Gayathri Scally Other [employer] Other 05-20-2022 11:15-0400 SaO2% (BldA) [Mass fraction] 97 % Gayathri Scally Other [employer] Other 05-20-2022 11:15-0400 Systolic blood pressure 121 mm[Hg] Gayathri Scally Other [employer] Other 04-08-2022 11:15-0500 Body height 160.02 cm Gayathri Scally Other [employer] Other 04-08-2022 11:15-0500 Body mass index (BMI) [Ratio] 34.49 kg/m2 Gayathri Scally Other [employer] Other 04-08-2022 11:15-0500 Body weight 88.32 kg Gayathri Scally Other [employer] Other 04-08-2022 11:15-0500 Diastolic blood pressure 77 mm[Hg] Gayathri Scally Other [employer] Other 04-08-2022 11:15-0500 Respiratory rate 18 /min Gayathri Scally Other [employer] Other 04-08-2022 11:15-0500 SaO2% (BldA) [Mass fraction] 98 % Gayathri Scally Other [employer] Other 04-08-2022 11:15-0500 Systolic blood pressure 110 mm[Hg] Gayathri Scally Other [employer] Other 04-08-2022 10:15-0500 Body height 160.02 cm Tamar Fitt Other [employer] Other 04-08-2022 10:15-0500 Body mass index (BMI) [Ratio] 34.49 kg/m2 Tamar Fitt Other [employer] Other 04-08-2022 10:15-0500 Body weight 88.32 kg Tamar Fitt Other [employer] Other 02-26-2022 10:00-0500 Body height 160.02 cm Tamar Fitt Other [employer] Other 02-25-2022 11:45-0500 Body height 160.02 cm Gayathri Scally Other [employer] Other 02-25-2022 11:45-0500 Body mass index (BMI) [Ratio] 36.63 kg/m2 Gayathri Scally Other [employer] Other 02-25-2022 11:45-0500 Body weight 93.8 kg Gayathri Scally Other [employer] Other 02-25-2022 11:45-0500 Diastolic blood pressure 78 mm[Hg] Gayathri Scally Other [employer] Other 02-25-2022 11:45-0500 Respiratory rate 18 /min Gayathri Scally Other [employer] Other 02-25-2022 11:45-0500 SaO2% (BldA) [Mass fraction] 97 % Gayathri Scally Other [employer] Other 02-25-2022 11:45-0500 Systolic blood pressure 109 mm[Hg] Gayathri Scally Other [employer] Other 01-14-2022 11:45-0500 Body height 160.02 cm Gayathri Scally Other [employer] Other 01-14-2022 11:45-0500 Body mass index (BMI) [Ratio] 39.37 kg/m2 Gayathri Scally Other [employer] Other 01-14-2022 11:45-0500 Body weight 100.84 kg Gayathri Scally Other [employer] Other 01-14-2022 11:45-0500 Diastolic blood pressure 88 mm[Hg] Gayathri Scally Other [employer] Other 01-14-2022 11:45-0500 Respiratory rate 18 /min Gayathri Scally Other [employer] Other 01-14-2022 11:45-0500 SaO2% (BldA) [Mass fraction] 97 % Gayathri Scally Other [employer] Other 01-14-2022 11:45-0500 Systolic blood pressure 124 mm[Hg] Gayathri Scally Other [employer] Other 12-04-2021 12:00-0400 Body height 160.02 cm Gayathri Scally Other [employer] Other 12-04-2021 12:00-0400 Body mass index (BMI) [Ratio] 39.73 kg/m2 Gayathri Scally Other [employer] Other 12-04-2021 12:00-0400 Body weight 101.74 kg Gayathri Scally Other [employer] Other 12-04-2021 12:00-0400 Diastolic blood pressure 74 mm[Hg] Gayathri Scally Other [employer] Other 12-04-2021 12:00-0400 Respiratory rate 18 /min Gayathri Scally Other [employer] Other 12-04-2021 12:00-0400 SaO2% (BldA) [Mass fraction] 95 % Gayathri Scally Other [employer] Other 12-04-2021 12:00-0400 Systolic blood pressure 110 mm[Hg] Gayathri Scally Other [employer] Other 10-29-2021 11:30-0400 Body height 160.02 cm Yo Saralaurence Other [employer] Other 10-29-2021 11:30-0400 Body mass index (BMI) [Ratio] 38.61 kg/m2 Yo Blank Other [employer] Other 10-29-2021 11:30-0400 Body weight 98.88 kg Yo Blank Other [employer] Other 10-29-2021 11:30-0400 Diastolic blood pressure 74 mm[Hg] Yo Blank Other [employer] Other 10-29-2021 11:30-0400 Systolic blood pressure 111 mm[Hg] Yo Blank Other [facility] [employer] Other 10-22-2021 13:26-0400 Body temperature 97.2 [degF] Shawna Rumschlag DO Work Phone: [employer] 10-22-2021 13:26-0400 Diastolic blood pressure 71 mm[Hg] Shawna Rumschlag DO Work Phone: [employer] 10-22-2021 13:26-0400 Heart rate 85 /min Shawna Rumschlag DO Work Phone: [employer] 10-22-2021 13:26-0400 Respiratory rate 16 /min Shawna Rumschlag DO Work Phone: [employer] 10-22-2021 13:26-0400 SaO2% (BldA) [Mass fraction] 94 % Shawna Rumschlag DO Work Phone: [employer] 10-22-2021 13:26-0400 Systolic blood pressure 131 mm[Hg] Shawna Rumschlag DO Work Phone: [employer] 10-11-2021 23:48-0400 Body height 160 cm Daniel Adkins MD Work Phone: [employer] 10-11-2021 23:48-0400 Body mass index (BMI) [Ratio] 36.67 kg/m2 Daniel Adkins MD Work Phone: [employer] 10-11-2021 23:48-0400 Body temperature 98.6 [degF] Daniel Adkins MD Work Phone: [employer] 10-11-2021 23:48-0400 Body weight 93.89 kg Daniel Adkins MD Work Phone: [employer] 10-11-2021 23:48-0400 Diastolic blood pressure 88 mm[Hg] Daniel Adkins MD Work Phone: [employer] 10-11-2021 23:48-0400 Heart rate 97 /min Daniel Adkins MD Work Phone: [employer] 10-11-2021 23:48-0400 Respiratory rate 16 /min Daniel Adkins MD Work Phone: [facility] [employer] 10-11-2021 23:48-0400 SaO2% (BldA) [Mass fraction] 96 % Daniel Adkins MD Work Phone: [employer] 10-11-2021 23:48-0400 Systolic blood pressure 134 mm[Hg] Daniel Adkins MD Work Phone: [employer] Encounters Encounter Date Encounter Type Care Provider Facility Start: 11-23-2024 End: 11-23-2024 ambulatory [facility] Start: 11-23-2024 End: 11-23-2024 Encounter for other preprocedural examination [facility] Start: 11-21-2024 End: 11-21-2024 Orders Only Cleo Zambrano MD Work Phone: [facility] Comment on above: Type 2 diabetes mine itus without complication, 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 Gastro Work Phone: Start: 11-16-2024 End: 11-16-2024 Telephone encounter Cleo Zambrano MD Work Phone: [facility] Comment on above: Med Refill Start: 11-15-2024 End: 11-15-2024 ambulatory MARTIR STOVALL [facility] Start: 11-15-2024 End: 11-15-2024 Subsequent hospital visit by physician Martir Stovall MD Work Phone: [facility] OR Comment on above: Ureteral stone with hydronephrosis Start: 11-15-2024 End: 11-15-2024 Telephone encounter Dwayne Khoury MD Work Phone: [facility] Start: 11-15-2024 End: 11-15-2024 ambulatory DAVIEMELECIO MCNEAL [facility] Start: 11-15-2024 Encounter for other preprocedural examination [facility] Start: 11-15-2024 End: 11-15-2024 Patient encounter status Health System Schedule [facility] Start: 11-15-2024 End: 11-15-2024 Subsequent hospital visit by physician Health System Ekg Schedule [facility] EKG Comment on above: Pre-op testing Start: 11-14-2024 End: 11-16-2024 ambulatory RUDDY VALENCIA [facility] Start: 11-14-2024 End: 11-16-2024 Subsequent hospital visit by physician [facility] 2 [facility] Comment on above: Gross hematuria; Renal colic Start: 11-11-2024 End: 11-11-2024 Office outpatient visit 15 minutes Shira Cardoso DO Work Phone: [facility] Comment on above: Obstructive sleep ap austin (Primary Dx); Class 3 severe obesity with serious comorbidity and body mass index (BMI) of 40.0 to 44.9 in adult, unspecified obesity type (CMS-HCC); Intolerance of continuous positive airway pressure (CPAP) ventilation Start: 11-11-2024 End: 11-11-2024 Bamboo flowsheet Shira Brandyn Angel DO Work Phone: [facility] Start: 11-11-2024 End: 11-11-2024 Bamboo flowsheet Shira Ahumada Angel DO Work Phone: [facility] Start: 11-11-2024 End: 11-11-2024 Telephone encounter [facility] Start: 11-11-2024 End: 11-11-2024 ambulatory SHIRA CARDOSO Not Available Start: 11-07-2024 End: 11-09-2024 ambulatory DAVIE MCNEAL [facility] Start: 11-07-2024 End: 11-09-2024 Subsequent hospital visit by physician Nkechi [address] Room 2 [facility] Radiology Comment on above: Renal calculus Start: 11-03-2024 End: 11-03-2024 ambulatory 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 Work Phone: [facility] Work Phone: Start: 11-03-2024 End: 11-03-2024 Patient encounter procedure Sasha Santos DO -[facility] Work Phone: Start: 11-02-2024 End: 11-02-2024 Bamboo flowsheet Roel Shirlene DO Work Phone: [facility] Start: 11-02-2024 End: 11-02-2024 Bamboo flowsheet Roel Shirlene DO Work Phone: [facility] Start: 11-02-2024 End: 11-02-2024 ambulatory ROEL SHIRLENE Not Available Start: 11-02-2024 End: 11-02-2024 Office outpatient visit 15 minutes Roel Shirlene DO Work Phone: [facility] Comment on above: Osteopenia, unspecif ied location (Primary Dx); Other osteoporosis without current pathological fracture ; Other iron deficiency anemia Start: 10-19-2024 End: 10-19-2024 ambulatory Ana Paula Ingram MD Facility[facility] Start: 10-03-2024 End: 10-04-2024 Telephone encounter Cleo Zambrano MD Work Phone: [facility] Comment on above: Med Refill Start: 09-29-2024 End: 09-29-2024 Bamboo flowsheet Shira Cardoso DO Work Phone: [facility] Start: 09-29-2024 End: 09-29-2024 Bamboo flowsheet Shira Cardoso DO Work Phone: [facility] Start: 09-29-2024 End: 09-29-2024 ambulatory SHIRA CARDOSO Not Available Start: 09-29-2024 End: 09-29-2024 Postop follow up visit related to original px Shira Cardoso DO Work Phone: [facility] Comment on above: Obstructive sleep ap austin (Primary Dx) Start: 09-21-2024 End: 09-21-2024 External Result Encounter Shira Cardoso DO Work Phone: [facility] External Department Unsolicited Start: 09-21-2024 End: 09-21-2024 External Result Encounter Shira Cardoso DO Work Phone: [facility] External Department Unsolicited Start: 09-21-2024 End: 09-21-2024 Admission to same day surgery center Shira Cardoso DO [facility] Start: 09-21-2024 End: 09-21-2024 ambulatory Davie Mcneal APRN Work Phone: [facility] Work Phone: Start: 09-20-2024 End: 09-20-2024 Bamboo flowsheet Shira Cardoso DO Work Phone: [facility] Start: 09-20-2024 End: 09-20-2024 Bamboo flowsheet Shira Cardoso DO Work Phone: [facility] Start: 09-20-2024 End: 09-20-2024 ambulatory SHIRA CARDOSO Not Available Start: 09-20-2024 End: 09-20-2024 Postop follow up visit related to original px Shira Cardoso DO Work Phone: [facility] Comment on above: Obstructive sleep ap austin (Primary Dx); Class 3 severe obesity with serious comorbidity and body mass index (BMI) of 40.0 to 44.9 in adult, unspecified obesity type ([facility]-HCC); Breakdown (mechanical) of implanted electronic neurostimulator, generator, sequela Start: 09-06-2024 End: 09-06-2024 Telephone encounter Dwayne [facility]houry MD [facility] Start: 09-01-2024 End: 09-01-2024 Bamboo flowsheet Shira Cardoso DO Work Phone: [facility] Start: 09-01-2024 End: 09-01-2024 Bamboo flowsheet Shira Cardoso DO Work Phone: [facility] Start: 09-01-2024 End: 09-01-2024 ambulatory SHIRA CARDOSO Not Available Start: 09-01-2024 End: 09-01-2024 Postop follow up visit related to original px Shira Cardoso DO Work Phone: [facility] Comment on above: Obstructive sleep ap austin (Primary Dx) Start: 08-19-2024 End: 08-19-2024 Bamboo flowsheet Shira Cardoso DO Work Phone: [facility] Start: 08-19-2024 End: 08-19-2024 Bamboo flowsheet Shira Cardoso DO Work Phone: [facility] Start: 08-19-2024 End: 08-19-2024 ambulatory SHIRA CARDOSO Not Available Start: 08-19-2024 End: 08-19-2024 Postop follow up visit related to original px Shira Cardoso DO Work Phone: [facility] Comment on above: Obstructive sleep ap austin (Primary Dx); Intolerance of continuous positive airway pressure (CPAP) ventilation Start: 08-18-2024 End: 08-18-2024 Evaluation and management of [facility] Start: 08-10-2024 End: 08-10-2024 External Result Encounter Shira Cardoso DO Work Phone: [facility] External Department Unsolicited Start: 08-10-2024 End: 08-10-2024 External Result Encounter Shira Ahumada Flacoarianna DO Work Phone: [facility] External Department Unsolicited Start: 08-10-2024 End: 08-10-2024 Admission to same day surgery center 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 Work Phone: [facility] [place] Start: 08-10-2024 End: 08-10-2024 ambulatory Davie Rena Fredis SCREW CUTTER Work Phone: [facility] Work Phone: Start: 08-08-2024 End: 08-08-2024 ambulatory Daviefer Mcneal SCREW CUTTER Work Phone: [facility] Work Phone: Start: 08-08-2024 End: 08-08-2024 Patient encounter procedure 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 Work Phone: [facility] Work Phone: Start: 08-04-2024 End: 08-04-2024 Bamboo flowsheet Cleo Zambrano MD Work Phone: [facility] Start: 08-04-2024 End: 08-04-2024 Bamboo flowsheet Cleo Zambrano MD Work Phone: [facility] Start: 08-04-2024 End: 08-04-2024 ambulatory CLEO ZAMBRANO Not Available Start: 08-04-2024 End: 08-04-2024 Office outpatient visit 25 minutes Cleo Zambrano MD Work Phone: [facility] Comment on above: Type 2 diabetes mine itus without complication, 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); Vitamin D deficiency; Weight gain; Encounter for dietary consultation; Hyperlipemia, mixed (CMS/HCC); Class 3 severe obesity due to excess calories without serious comorbidity with body mass index (BMI) of 40.0 to 44.9 in adult Start: 08-02-2024 End: 08-02-2024 Bamboo flowsheet Roel Shirlene DO Work Phone: [facility] Start: 08-02-2024 End: 08-02-2024 Bamboo flowsheet Roel Shirlene DO Work Phone: [facility] Start: 08-02-2024 End: 08-02-2024 ambulatory ROEL SHIRLENE Not Available Start: 08-02-2024 End: 08-02-2024 Office outpatient visit 15 minutes Roel Shirlene DO Work Phone: [facility] Comment on above: Itching with irritat ion; Nexplanon removal Start: 07-27-2024 End: 07-27-2024 Patient encounter procedure 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 Work Phone: [facility] Work Phone: Start: 07-27-2024 End: 07-27-2024 ambulatory 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 Work Phone: [facility] Work Phone: Start: 07-20-2024 End: 07-20-2024 Telephone encounter Cleo Zambrano MD Work Phone: [facility] Comment on above: Advice Only Start: 07-16-2024 End: 07-16-2024 Emergency department patient visit DAVIE [facility] Comment on above: Post-traumatic osteo arthritis of left ankle (Primary Dx); Midline low back pain without sciatica, unspecified chronicity Start: 06-30-2024 End: 06-30-2024 Patient encounter procedure Roel Arto DO Work Phone: [facility] Comment on above: Nexplanon removal Start: 06-30-2024 End: 06-30-2024 ambulatory ROEL ARTO Not Available Start: 06-27-2024 End: 06-27-2024 ambulatory Ugo Bourgeois MD Facility:[facility] Start: 06-20-2024 End: 06-20-2024 ambulatory [facility] Start: 06-13-2024 End: 06-13-2024 Bamboo flowsheet Shira Cardoso DO Work Phone: [facility] Start: 06-13-2024 End: 06-13-2024 Bamboo flowsheet Shira Cardoso DO Work Phone: [facility] Start: 06-13-2024 End: 06-13-2024 Office outpatient visit 15 minutes Shira Cardoso DO Work Phone: [facility] Comment on above: Obstructive sleep ap austin (Primary Dx); Intolerance of continuous positive airway pressure (CPAP) ventilation; Class 3 severe obesity with serious comorbidity and body mass index (BMI) of 40.0 to 44.9 in adult, unspecified obesity type Start: 06-13-2024 End: 06-13-2024 ambulatory SHIRA CARDOSO Not Available Start: 06-02-2024 End: 06-02-2024 ambulatory Luz Maria Driver [employer]PER[employer] Work Phone: [facility] Work Phone: Start: 06-02-2024 End: 06-02-2024 Patient encounter procedure Luz Maria Driver [employer] SUPERVISOR-BC Work Phone: [facility] Work Phone: Start: 05-27-2024 End: 05-27-2024 Clinisync [...] Not Available Start: 05-10-2024 End: 05-10-2024 ambulatory SASHA SANTOS Not Available Start: 05-09-2024 End: 05-09-2024 ambulatory Ugo Bourgeois MD Facility: [facility] Start: 04-28-2024 End: 04-28-2024 Office outpatient visit 25 minutes Shira Cardoso DO Work Phone: [facility] Comment on above: Obstructive sleep ap austin (Primary Dx); Intolerance of continuous positive airway pressure (CPAP) ventilation; Body mass index 34.0-34.9, adult Start: 04-28-2024 End: 04-28-2024 ambulatory SHIRA CARDOSO Not Available Start: 04-25-2024 End: 04-25-2024 Bamboo flowsheet Brittany Neville [employer] Work Phone: [facility] Start: 04-25-2024 End: 04-25-2024 Bamboo flowsheet Brittany Neville [employer] Work Phone: [facility] Start: 04-18-2024 End: 04-18-2024 Bamboo flowsheet Roel Shirlene DO Work Phone: [facility] Start: 04-18-2024 End: 04-18-2024 Bamboo flowsheet Roel Shirlene DO Work Phone: [facility] Start: 04-18-2024 End: 04-18-2024 Clinisync Result Encounter Roel Shirlene DO Work Phone: [facility] External Department Unsolicited Start: 04-18-2024 End: 04-18-2024 ambulatory ROEL SHIRLENE Not Available Start: 04-18-2024 End: 04-18-2024 Office outpatient visit 15 minutes Roel Shirlene DO Work Phone: [facility] Comment on above: Hormone imbalance; Hormone disorder; Toenail fungus Start: 04-13-2024 End: 04-14-2024 Telephone encounter Cleo Zambrano MD Work Phone: [facility] Comment on above: Prior Authorization Start: 04-07-2024 End: 04-07-2024 Bamboo flowsheet Cleo Zambrano MD Work Phone: [facility] Start: 04-07-2024 End: 04-07-2024 Bamboo flowsheet Cleo Zambrano MD Work Phone: [facility] Start: 04-07-2024 End: 04-07-2024 ambulatory CLEO ZAMBRANO Not Available Start: 04-07-2024 End: 04-07-2024 Office outpatient visit 25 minutes Cleo Zambrano MD Work Phone: [facility] Comment on above: Type 2 diabetes mine itus without complication, unspecified whether usp insulin use ([facility]) (Primary Dx); Vitamin D deficiency; Weight gain; Encounter for dietary consultation; Hyperlipemia, mixed ([facility]); Class 2 severe obesity due to excess calories with serious comorbidity and body mass index (BMI) of 39.0 to 39.9 in adult ([facility]) Start: 04-04-2024 Non-patient / Non-visit Luz Maria Driver [employer]PPL[employer] SUPERVISOR-BC Work Phone: [facility] Work Phone: Start: 03-09-2024 End: 03-09-2024 ambulatory Luz Maria Driver [employer]PPL[employer] SUPERVISOR-BC Work Phone: [facility] Work Phone: Start: 03-09-2024 End: 03-09-2024 Departed Referred Luz Maria Driver [employer]PPL[employer] SUPERVISOR-BC Work Phone: [facility] Start: 02-29-2024 End: 03-03-2024 Refill Paula Sanderson MD Work Phone: [facility] E[facility] Comment on above: Chronic rhinitis Start: 02-16-2024 End: 02-17-2024 Telephone encounter Cleo Zambrano MD Work Phone: [facility] Comment on above: Medication Problem Start: 02-09-2024 End: 02-09-2024 Subsequent hospital visit by physician Jan Olmstead PT [facility] Start: 02-09-2024 ambulatory [facility] Start: 02-01-2024 End: 02-01-2024 ambulatory Ugo Bourgeois MD Facility:[facility] Start: 01-26-2024 End: 01-26-2024 ambulatory [facility] Start: 01-26-2024 End: 01-26-2024 Subsequent hospital visit by physician Tamar Silveira PT [facility] Comment on above: Arrived Start: 01-21-2024 End: 01-21-2024 Patient encounter procedure Luz Maria Driver [employer]PPL[employer] SUPERVISOR-BC Work Phone: [facility] Work Phone: Start: 01-13-2024 End: 01-13-2024 Emergency department patient visit Tirso Junior DO Work Phone: [facility] ED Comment on above: Dizziness (Primary D x) Start: 01-11-2024 End: 01-11-2024 ambulatory Ugo Bourgeois MD Facility: [facility] Start: 12-29-2023 End: 12-29-2023 Subsequent hospital visit by physician Tamar Silveira PT [facility] Start: 12-21-2023 End: 12-21-2023 ambulatory [facility] Start: 12-15-2023 End: 12-15-2023 [facility] Start: 12-01-2023 End: 12-01-2023 ambulatory [facility] Start: 11-30-2023 End: 11-30-2023 Bamboo flowsheet Brittany Neville [employer] Work Phone: [facility] Start: 11-30-2023 End: 11-30-2023 Bamboo flowsheet Brittany Neville [employer] Work Phone: [facility] Start: 11-30-2023 End: 11-30-2023 Telephone encounter Brittany Neville [employer] Work Phone: [facility] Start: 11-30-2023 End: 11-30-2023 ambulatory BRITTANY NEVILLE Not Available Start: 11-30-2023 End: 11-30-2023 Office outpatient visit 25 minutes Brittany Neville [employer] Work Phone: [facility] Comment on above: JADON (obstructive sle ep apnea) (Primary Dx); Tension headache; Chronic bilateral low back pain, unspecified whether sciatica present; Paresthesias Start: 11-17-2023 End: 11-17-2023 Subsequent hospital visit by physician Tamar Silveira PT [facility] Physical Therapy Comment on above: Arrived Start: 11-16-2023 End: 11-16-2023 ambulatory Ugo Bourgeois MD Facility:[facility] Start: 10-20-2023 End: 10-20-2023 Subsequent hospital visit by physician Jan Olmstead PT [facility] Physical Therapy Comment on above: Arrived Start: 10-08-2023 End: 10-08-2023 Office outpatient new 30 minutes Dwayne Khoury MD Work Phone: [facility]astic [facility] Re[facility]ive Surgery Comment on above: Macromastia (Primary Dx) Start: 10-08-2023 End: 10-08-2023 ambulatory DWAYNE KHOURY [facility] Start: 10-05-2023 End: 10-05-2023 Emergency department patient visit [facility] Start: 09-22-2023 End: 09-22-2023 Subsequent hospital visit by physician Jan Olmstead PT [facility] Physical Therapy Start: 09-08-2023 End: 09-17-2023 Telephone encounter Argenis Storm RN [facility] Comment on above: Med Refill Start: 08-26-2023 End: 08-26-2023 Subsequent hospital visit by physician Kofi Villegas PT [facility] Physical Therapy Comment on above: Arrived Start: 08-21-2023 End: 08-21-2023 Subsequent hospital visit by physician Jan Olmstead PT [facility] Physical Therapy Comment on above: Arrived Start: 08-19-2023 End: 09-07-2023 Telephone encounter Margaux Olea CST [facility] Start: 08-11-2023 End: 08-11-2023 Subsequent hospital visit by physician Jan Olmstead PT [facility] Physical Therapy Comment on above: Arrived Start: 07-14-2023 End: 07-14-2023 Subsequent hospital visit by physician Rebecca Skinner PT [facility] Physical Therapy Start: 07-07-2023 End: 07-16-2023 Telephone encounter Maty Fulton RN [facility] Start: 06-03-[address] [facility] Start: 06-02-2023 End: 06-02-2023 Office outpatient new 30 minutes Deepika Robledo MD Work Phone: [facility] Comment on above: Mass of upper outer quadrant of right breast (Primary Dx); Abnormal mammogram; Symptomatic mammary hypertrophy Start: 06-02-2023 End: 06-02-2023 ambulatory DEEPIKA ROBLEDO [facility] Start: 05-25-2023 Patient encounter procedure Brittany Neville NP Work Phone: [facility] Start: 05-21-2023 End: 05-21-2023 Patient encounter procedure [facility] Physician [facility] Gastro[facility]ology Work Phone: Start: 05-21-2023 End: 05-21-2023 Patient encounter procedure [facility] Physician [facility] Work Phone: Start: 05-12-2023 Telephone encounter Deepika Robledo MD Work Phone: [facility] Start: 05-06-2023 End: 05-06-2023 Subsequent hospital visit by physician Rojas Altamirano PTA [facility] Physical Therapy Comment on above: Arrived Start: 04-30-2023 Refill Maty Fulton RN [facility] Start: 04-28-2023 End: 04-28-2023 ambulatory GAURAV SELLERS [facility] Start: 04-28-2023 End: 04-28-2023 Office outpatient visit 25 minutes Gaurav CALVO Work Phone: [facility] Comment on above: 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 (Primary Dx) Start: 04-20-2023 End: 04-20-2023 Emergency department patient visit Shawna Bogdan MARQUEZ Work Phone: [facility] ED Comment on above: Closed head injury, initial encounter (Primary Dx); Fall due to slipping on ice or snow, initial encounter; Acute cervical myofascial strain, initial encounter Start: 03-31-2023 Refpadmini Clay RN [facility] Start: 03-27-2023 End: 03-27-2023 ambulatory ZAC SILVER [facility] Start: 03-18-2023 End: 03-18-2023 ambulatory Jan Garg Other [facility] Other Start: 03-18-2023 Telephone encounter Jan [facility] Start: 03-18-2023 Non-patient / Non-visit MD Selvin Blank Work Phone: [facility] Work Phone: Start: 03-17-2023 End: 03-17-2023 ambulatory Jan Garg Other [facility] Other Start: 03-17-2023 Telephone encounter Jan Peterson [facility] Start: 03-16-2023 Encounter for genera l adult medical examination without abnormal findings [facility] Start: 03-16-2023 End: 03-16-2023 ambulatory [facility] Start: 03-10-2023 End: 03-10-2023 Subsequent hospital visit by physician [facility] Comment on above: Arrived Start: 03-05-2023 ([id number]) Weight Management f/u Gayathri Aadms [facility] Start: 03-05-2023 End: 03-05-2023 ambulatory Gayathri Adams Other [place] [facility] Other Start: 03-05-2023 Registered Recurring MD Monserrat Blank Work Phone: [facility] Work Phone: Start: 03-02-2023 End: 03-02-2023 Emergency department patient visit Sillinus Sullivan DO Work Phone: [facility] ED Comment on above: Constipation, unspec ified constipation type (Primary Dx) Start: 02-26-2023 End: 02-26-2023 ambulatory Jan Garg Other [facility] Other Start: 02-26-2023 Telephone encounter Jan Peterson [facility] Start: 02-20-2023 Telephone encounter Argenis Storm RN [facility] Comment on above: Medication, DME Start: 02-18-2023 End: 02-18-2023 ambulatory Jan Garg Other [facility] Other Start: 02-18-2023 Telephone encounter Jan Peterson [facility] Start: 02-10-2023 Telephone encounter Margaux Olea [facility] Start: 02-05-2023 End: 02-05-2023 ambulatory Jan Garg Other [facility] Other Start: 02-05-2023 Office outpatient vi sit 15 minutes Jan Garg [facility] Start: 01-15-2023 (FCCCWMNF/U) Weight Management f/u Gayathri Adams [facility] Start: 01-15-2023 End: 01-15-2023 ambulatory Gayathri Adams Other [facility] Other Start: 01-07-2023 End: 01-07-2023 ambulatory Jan Garg Other [facility] Other Start: 01-07-2023 Office outpatient vi sit 15 minutes Jan Sczayda [facility] Start: 09-25-2022 End: 01-16-2023 ambulatory CLINICAL RESEARCH ANALYST YUE GRANADO Facility:[facility] Start: 09-25-2022 End: 01-15-2023 Recurring YUE GRANADO [facility] Start: 09-17-2022 End: 09-17-2022 ambulatory Gayathri Adams Other [facility] Other Start: 09-17-2022 Telephone encounter Gayathri last [facility] Start: 08-28-2022 ([facility] RD FU) [facility] F/ U Registerd Drying Room Supervisor Tamar Sosa [facility] Start: 08-28-2022 End: 08-28-2022 ambulatory Tamar Sosa Other [facility] Other Start: 07-29-2022 [facility] Weight Management f/u Gayathri Angie [facility] Start: 07-29-2022 End: 07-29-2022 ambulatory Gayathri Angie Other [facility] Other Start: 05-20-2022 [facility] Weight Management f/u Gayathri Angie [facility] Start: 05-20-2022 End: 05-20-2022 ambulatory Gayathri Adams Other [facility] Other Start: 05-19-2022 End: 05-19-[address] ROEL GARBER . Facility:[facility] Start: 05-07-2022 End: 05-08-[address] DOCTOR ARREOLA Facility:[facility] Start: 04-09-2022 End: 04-09-2022 ambulatory Gayathri Adams Other [facility] Other Start: 04-09-2022 Telephone encounter Gayathri last [facility] Start: 04-08-2022 ([facility] WMNI) WMN Init ial Provider Tamar Sosa [facility] Start: 04-08-2022 [facility] Weight Management f/u Gayathri Angie [facility] Start: 04-08-2022 End: 04-08-2022 ambulatory Tamar Fitt Other [facility] Other Start: 02-26-2022 End: 02-26-2022 ambulatory Tamar Fitt Other [facility] Other Start: 02-26-2022 IBT FOR OBESITY GROU P 2-10 30M Tamar Fitt [facility] Start: 02-25-2022 (FCCCWMNF/U) Weight Management f/u Gayathrimarino Adams [facility] Start: 02-25-2022 End: 02-25-2022 ambulatory Gayathri Adams Other [facility] Other Start: 02-17-2022 End: 02-18-[address] [facility] Facility:[facility] Start: 01-29-2022 End: 01-30-2022 ambulatory JOY Reis [facility] Facility:[facility] Start: 01-14-2022 (FCCCWMNF/U) Weight Management f/u Gayathri Adams [facility] Start: 01-14-2022 End: 01-14-2022 ambulatory Gayathri Adams Other [facility] Other Start: 12-05-2021 End: 12-05-2021 ambulatory Gayathri Adams Other [facility] Other Start: 12-05-2021 Telephone encounter Gayathri [place] [facility] Start: 12-04-2021 End: 12-04-2021 ambulatory Gayathri Brooklynludy Other [facility] Other Start: 12-04-2021 Nutrition therapy Gayathrimarino Adams [facility] Start: 10-29-2021 End: 10-29-2021 ambulatory Yo Blank Other [employer] Other Start: 10-29-2021 Patient encounter procedure [facility] Start: 10-22-2021 End: 10-22-2021 Emergency department patient visit Shawna Mcfadden Work Phone: [facility] ED Comment on above: Acute diffuse otitis externa of left ear (Primary Dx) Start: 10-11-2021 End: 10-12-2021 Emergency department patient visit Daniel Adkins MD Work Phone: [facility] ED Comment on above: Pilonidal cyst (Prim romero Dx) Start: 11-21-2016 End: 11-26-2016 Ambulatory [facility] Facility:[facility] Procedures Date Procedure Procedure Detail Performing Clinician Start: 11-17-2024 Ct abdomen & pelvis w/contrast material Benja Walker MD Work Phone: Start: 11-17-2024 Radex wrist complete minimum 3 views Benja Walker MD Work Phone: Start: 11-17-2024 Urinalysis microscopic only Benja Walker MD Work Phone: Start: 11-17-2024 Urnls dip stick/tabl et rgnt auto w/o microscopy Benja Walker MD Work Phone: Start: 11-17-2024 Basic metabolic pane l calcium total Benja Walker MD Work Phone: Start: 11-17-2024 Hepatic function panel Benja Walker MD Work Phone: Start: 11-15-2024 Fluoroscopy during operation Martir Stovall MD Work Phone: Start: 11-15-2024 GLUCOSE, WHOLE BLOOD Th augusto Stovall MD Work Phone: Start: 11-15-2024 GLUCOSE, WHOLE BLOOD Murphy Stovall MD Work Phone: Start: 11-15-2024 Ecg routine ecg w/le ast 12 lds w/i&r Lucas Ayanna Martinezamalia SCREW CUTTER - CLINICAL RESEARCH ANALYST Work Phone: Start: 11-14-2024 Basic metabolic pane l calcium total Ruddycarter CALVO-C Work Phone: Start: 11-14-2024 Urnls dip stick/tabl et reagent auto microscopy Ruddycarter Valencia PA-C Work Phone: Start: 11-14-2024 Ct abdomen & pelvis w/o contrast material Ruddy CALVO-C Work Phone: Start: 09-21-2024 Neurostimulation of cranial nerve 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 Work Phone: Start: 09-21-2024 GLUCOSE POCT GLUCOMETERS Shira Cardoso DO Work Phone: Start: 08-10-2024 GLUCOSE POCT GLUCOMETERS Shira Cardoso DO Work Phone: Start: 08-10-2024 Plain chest X-ray Yi Avaloschris SCREW CUTTER Work Phone: Start: 08-10-2024 Neurostimulation of cranial nerve Davie Mcnael SCREW CUTTER Work Phone: Start: 08-10-2024 GLUCOSE POCT GLUCOMETERS Shira Cardoso DO Work Phone: Start: 08-04-2024 Gluc bld gluc mntr d ev cleared fda spec home use Cleo Zambrano MD Work Phone: Start: 07-16-2024 Urnls dip stick/tabl et reagent auto microscopy Prieto Daniel PA-C Work Phone: Start: 07-16-2024 End: 07-16-2024 Radex spine lumbosacral 2/3 views Prieto Daniel PA-C Work Phone: Start: 06-30-2024 HEAD LOADER INSERTION/REMOVA L OF CONTRACEPTIVE CAPSULE Roel Shirlene [...] Phone: Start: 03-09-2024 Streptococcus pyogen es culture Luz Mariajosr Driver [employer] SUPPLY SUPERVISOR-BC Work Phone: Start: 01-13-2024 Urinalysis microscopic only Tirso J Junior DO Work Phone: Start: 01-13-2024 Urnls dip stick/tabl et rgnt auto w/o microscopy Tirso J Junior DO Work Phone: Start: 01-13-2024 Ecg routine ecg w/le ast 12 lds w/i&r Tirso J Junior DO Work Phone: Start: 01-13-2024 Comprehensive metabolic panel Tirso J Junior DO Work Phone: Start: 05-25-2023 Microscopic observat ion [Identifier] in Cervix by Cyto stain Deepika Robledo MD Work Phone: Start: 04-20-2023 Ct cervical spine w/ o contrast material Precious Urbina SCREW CUTTER - CLINICAL RESEARCH ANALYST Work Phone: Start: 04-20-2023 Ct head/brain w/o co ntrast material Precious Octavio Urbina SCREW CUTTER - CLINICAL RESEARCH ANALYST Work Phone: Start: 03-16-2023 Mammography Brittany yoo FIRST DYER Work Phone: Start: 05-02-2022 Microalbumin [Mass/v olume] [...] Td Vaccines (2 - Td or Tdap) [facility] Start: 09-03-2031 DTaP/Tdap/Td vaccine (2 - Td or Tdap) DTaP/Tdap/Td vaccine (2 - Td or Tdap) [facility] Start: 05-20-2027 Screening for malignant neoplasm of cervix [facility] Start: 05-24-2026 Screening for malignant neoplasm of cervix Pap Smear [facility] Start: 08-18-2025 Adult BMI Screening Adult BMI Screening [facility] Start: 08-18-2025 End: 08-18-2025 Patient encounter procedure [facility] Start: 08-18-2025 Tobacco Screening Tobacco Screening [facility] Start: 05-31-2025 End: 05-31-2025 Patient encounter procedure [facility] Start: 05-27-2025 Screening for malignant neoplasm of breast Mammogram [facility] Start: 03-16-2025 Screening for malignant neoplasm of breast Breast cancer screen [facility] Start: 12-01-2024 End: 12-01-2024 Patient encounter procedure [facility] Start: 11-21-2024 End: 11-21-2024 Patient encounter procedure 11/21/2024 3:45 PM EDT Office Visit [facility] UR[facility] Part of [address] [place] [address] Ruddy Valencia, PA-C [address] [place] [address] 1 year KUB, discuss hematuria, recent CT, labs and urine completed, KUB reminder 10/25/2024 [place] [facility] Comment on above: 1 year KUB, discuss hematuria, recent CT , labs and urine completed, KUB reminder 10/25/2024 [place] Start: 11-18-2024 End: 11-18-2024 Patient encounter procedure 11/18/2024 9:00 AM EDT Office Visit [facility] [address] [place] [phone] Lucas Perkins, SCREW CUTTER - CLINICAL RESEARCH ANALYST [address] [place] [address] post op stent pull [facility] Comment on above: post op stent pull Start: 11-15-2024 End: 11-15-2024 Cysto/uretero w/lithotripsy &indwell stent insrt CYSTOSCOPY URETEROSCOPY LASER Ureteral stone with hydronephrosis 11/15/2024 4:30 PM EDT [facility] Start: 11-11-2024 End: 11-11-2024 Patient encounter procedure 11/11/2024 3:15 PM EDT Office Visit [facility] [place] [facility] [address] [place] [address] Shira Cardoso, [address] [place] [address] Arrived [facility] [place] [facility] Comment on above: Arrived Start: 11-10-2024 End: 11-10-2024 Patient encounter procedure [facility] Comment on above: 1 year KUB 1 year PÉREZ PARKERB christian nder 10/25/2024 [place] Start: 11-02-2024 End: 11-02-2024 Patient encounter procedure 11/02/2024 1:20 PM EDT Office Visit [facility]ALIIA BONILLA [address] [place] [address] [place] [phone] Roel Garber, DO [address] [place] [address] [place] [address] JOYBrandyn Mendoza [facility] Start: 10-31-2024 Influenza vaccination [facility] Start: 10-07-2024 Adult BMI Screening Adult BMI Screening [facility] Start: 10-07-2024 Tobacco Screening Tobacco Screening [facility] Start: 09-30-2024 Influenza vaccination Flu vaccine (#1) [facility] Start: 09-29-2024 End: 09-29-2024 Patient encounter procedure 09/29/2024 10:15 AM EDT Office Visit [facility] [place] [address] [place] [phone] Shira Cardoso, [address] [place] [address] [facility] [place] Start: 09-26-2024 End: 09-26-2024 Patient encounter procedure 09/26/2024 2:20 PM EDT Office Visit [facility] [address] [place] [phone] Brittany Neville NP [address] [place] [address] [facility] Start: 09-21-2024 [facility] Start: 09-21-2024 [facility] Start: 08-18-2024 End: 08-18-2024 Patient encounter procedure 08/18/2024 9:45 AM EDT Office Visit [facility] [place] [address] [place] [phone] Shira Cardoso, [address] [place] [address] [facility] [place] Start: 08-10-2024 [facility] Start: 08-10-2024 [facility] Start: 08-04-2024 End: 08-04-2024 Patient encounter procedure 08/04/2024 10:30 AM EDT Office Visit [facility] [address] [place] [address] Cleo Zambrano MD [address] [place] [address] [facility] Start: 08-03-2024 End: 08-03-2024 Patient encounter procedure 08/03/2024 8:40 AM EDT Office Visit [facility]RE [place] [address] [place] [address] Brittany Neville NP [address] [place], [place] [facility] Start: 08-02-2024 End: 08-02-2025 XR Humerus - left Views XR humerus left Imaging Routine Nexplanon removal Expected: 08/02/2024, Expires: 08/02/2025 [facility] Work Phone: Comment on above: Expected: 08/02/2024, Expires: Start: 06-13-2024 End: 06-13-2024 Patient encounter procedure 06/13/2024 9:45 AM EDT Office Visit [facility] [place] [address] [place] [phone] Shira Cardoso, DO [address] [place] [address] Arrived [facility] [place] Comment on above: Arrived Start: 06-10-2024 End: 06-10-2024 Patient encounter procedure 06/10/2024 10:45 AM EDT Office Visit [facility] [place] [address] [place] [phone] Shira Cardoso, DO [address] [place] [address] [facility] [place] Start: 06-01-2024 Adult BMI Screening Adult BMI Screening [facility] Start: 05-26-2024 End: 07-26-2025 MG Breast - bilateral Screening Bilateral screening mammogram Imaging Routine Breast cancer screening by mammogram Expected: 05/26/2024 (Approximate), Expires: 07/26/2025 [facility] Work Phone: Comment on above: Expected: 05/26/2024 (Approximate), Expi res: 07/26/2025 Start: 05-26-2024 End: 05-26-2024 Patient encounter procedure 05/26/2024 11:00 AM EDT Office Visit [facility] [address] [place] [phone] Roel Garber DO [address] [facility] [place] [address] [facility] Start: 05-04-2024 End: 05-04-2024 Patient encounter procedure 05/04/2024 8:20 AM EST Office Visit TIGRE MENDO[facility] [address] [place] [phone] Brittany Neville, JO ANN [address] [place] [address] [facility] MENDO[facility] Start: 04-28-2024 Adult BMI Screening Adult BMI Screening [facility] Start: 04-28-2024 Tobacco Screening Tobacco Screening [facility] Start: 04-28-2024 End: 04-28-2024 Patient encounter procedure 04/28/2024 10:30 AM EST Office Visit [facility] [place] [address] [place] [place] [address] Shira Cardoso, DO [address] [place] [address] [facility] [place] Start: 04-25-2024 End: 04-25-2024 Patient encounter procedure 04/25/2024 9:00 AM EST Office Visit [facility] [place] [address] [address] [place] [address] Brittany Neville, FIRST DYER [address] [place] [address] [facility] [place] Start: 04-18-2024 End: 04-18-2025 C-peptide C-peptide Lab Routine Hormone imbalance Hormone disorder Expected: 04/18/2024 (Approximate), Expires: 04/18/2025 [facility] Comment on above: Expected: 04/18/2024 (Approximate), Expi res: 04/18/2025 Start: 04-18-2024 End: 04-18-2025 Cortisol free Cortisol, free Lab Routine Hormone imbalance Hormone disorder Expected: 04/18/2024 (Approximate), Expires: 04/18/2025 [facility] Comment on above: Expected: 04/18/2024 (Approximate), Expi res: 04/18/2025 Start: 04-18-2024 End: 04-18-2025 Glucose [Mass/volume] in Serum or Plasma Glucose, random Lab Routine Hormone imbalance Hormone disorder Expected: 04/18/2024 (Approximate), Expires: 04/18/2025 [facility] Comment on above: Expected: 04/18/2024 (Approximate), Expi res: 04/18/2025 Start: 04-18-2024 End: 04-18-2025 Insulin, total Insulin, total Lab Routine Hormone imbalance Hormone disorder Expected: 04/18/2024 (Approximate), Expires: 04/18/2025 [facility] Comment on above: Expected: 04/18/2024 (Approximate), Expi res: 04/18/2025 Start: 04-18-2024 End: 04-18-2025 Serotonin serum Serotonin serum Lab Routine Hormone imbalance Hormone disorder Expected: 04/18/2024 (Approximate), Expires: 04/18/2025 [facility] Comment on above: Expected: 04/18/2024 (Approximate), Expi res: 04/18/2025 Start: 04-18-2024 End: 04-18-2025 Thyroglobulin Thyroglobulin Lab Routine Hormone imbalance Hormone disorder Expected: 04/18/2024 (Approximate), Expires: 04/18/2025 [facility] Comment on above: Expected: 04/18/2024 (Approximate), Expi res: 04/18/2025 Start: 04-18-2024 End: 04-18-2025 Thyroglobulin Antibody Thyroglobulin Antibody Lab Routine Hormone imbalance Hormone disorder Expected: 04/18/2024 (Approximate), Expires: 04/18/2025 [facility] Comment on above: Expected: 04/18/2024 (Approximate), Expi res: 04/18/2025 Start: 04-18-2024 End: 04-18-2025 Thyrotropin [Units/volume] in Serum or Plasma [facility] Comment on above: Ordered: 04/18/2024 Expected: 04/18/2024 (Approximate), Expires: 04/18/2025 Start: 04-18-2024 End: 04-18-2024 Patient encounter procedure 04/18/2024 10:50 AM EST Office Visit [facility] [address] [facility] [place] [address] Roel Garber DO [address] [facility] [place] [address] [facility] Start: 04-07-2024 End: 04-07-2025 25-hydroxyvitamin D3 [Mass/volume] in Serum or Plasma Vitamin D 25 hydroxy Total Lab Routine Type 2 diabetes mellitus without complication, unspecified whether usp insulin use (CMS/HCC) Expected: 04/07/2024 (Approximate), Expires: 04/07/2025 [facility] Work Phone: Comment on above: Expected: 04/07/2024 (Approximate), Expi res: 04/07/2025 Start: 04-07-2024 End: 04-07-2025 Lipid 1996 panel - Serum or Plasma Lipid panel Lab Routine Type 2 diabetes mellitus without complication, unspecified whether usp insulin use (CMS/HCC) Expected: 04/07/2024 (Approximate), Expires: 04/07/2025 [facility] Comment on above: Expected: 04/07/2024 (Approximate), Expi res: 04/07/2025 Start: 04-07-2024 End: 04-07-2025 Microalbumin/Creatinine panel in random Urine Microalbumin / creatinine urine ratio Lab Routine 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, 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) Expected: 04/07/2024 (Approximate), Expires: 04/07/2025 [facility] Comment on above: Expected: 04/07/2024 (Approximate), Expi res: 04/07/2025 Start: 04-07-2024 End: 04-07-2025 Renal function panel Renal function panel Lab Routine 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, 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) Expected: 04/07/2024 (Approximate), Expires: 04/07/2025 [facility] Comment on above: Expected: 04/07/2024 (Approximate), Expi res: 04/07/2025 Start: 03-24-2024 End: 03-24-2024 Patient encounter procedure 03/24/2024 3:00 PM EST Office Visit [facility] [address] [place] [phone] Brittany Neville NP [address] [place] [address] [facility] [address] Start: 03-17-2024 End: 03-17-2024 Patient encounter procedure 03/17/2024 9:20 AM EST Office Visit [facility] [address] [place] [address] Cleo Zambrano MD [address] [place] [address] [facility] Start: 03-16-2024 Adult BMI Screening Adult BMI Screening [facility] Start: 03-16-2024 Screening for malignant neoplasm of breast Mammogram [facility] Start: 03-11-2024 End: 03-11-2024 Patient encounter procedure 03/11/2024 10:00 AM EST Office Visit [facility] [place] [address] [place] [phone] Shira Cardoso, DO [address] [place] [address] [facility] [place] Start: 03-09-2024 Group A Streptococcus Culture Group A Streptococcus Culture [facility] Start: 02-19-2024 End: 02-19-2024 Patient encounter procedure 02/19/2024 2:00 PM EST Office Visit [facility] [address] [place] [phone] Shira Cardoso, DO [address] [place] [address] [facility] [place] Start: 02-16-2024 End: 02-16-2024 Patient encounter procedure 02/16/2024 3:40 PM EST Office Visit [facility] [address] [place] [phone] Brittany Neville NP [address] [place] [address] [facility] [address] Start: 02-09-2024 End: 02-09-2024 Patient encounter procedure 02/09/2024 11:15 AM EST Appointment [facility] Physical Therapy [address] [place] [phone] Tamar Silveira, PT dry needling [facility] Physical Therapy Comment on above: dry needling Start: 02-08-2024 End: 02-08-2024 Patient encounter procedure 02/08/2024 1:45 PM EST Appointment [facility] - [facility] Imaging [address] [place] [address] Ana Paula Ingram MD [address] [place] [address] [facility] Start: 01-30-2024 Adult BMI Screening Adult BMI Screening [facility] Start: 01-30-2024 Tobacco Screening Tobacco Screening [facility] Start: 01-26-2024 End: 01-26-2024 Patient encounter procedure 01/26/2024 8:00 AM EST Appointment [facility] Physical Therapy [address] [place], [place] [phone] Tamar Silveira, PT dry needling [facility] Physical Therapy Comment on above: dry needling Start: 01-13-2024 End: 01-13-2024 Patient encounter procedure 01/13/2024 8:15 AM EST Office Visit [facility] UR[facility] Part of [address] [place] [phone] Ruddy Valencia, PA-C [address] [facility] [address] [phone] incontinence [facility] Part of [facility] Comment on above: incontinence Start: 12-29-2023 End: 12-29-2023 Patient encounter procedure 12/29/2023 9:00 AM EDT Appointment [facility] Physical Therapy [address] [place] [phone] Tamar Silveira, PT NEEDLING [facility] Physical Therapy Comment on above: NEEDLING Start: 12-15-2023 End: 12-15-2023 Patient encounter procedure 12/15/2023 9:00 AM EDT Appointment [facility] Physical Therapy [address] [place] [address] Tamar Silveira, PT NEEDLING [facility] Physical Therapy Comment on above: NEEDLING Start: 12-01-2023 End: 12-01-2023 Patient encounter procedure 12/01/2023 9:45 AM EDT Appointment [facility] Physical Therapy [address] [place] [phone] Tamar Silveira, PT NEEDLING [facility] Physical Therapy Comment on above: NEEDLING Start: 11-01-2023 Influenza vaccination [facility] Start: 10-08-2023 End: 10-08-2023 Patient encounter procedure 10/08/2023 9:00 AM EDT [facility] [address] [place] [address] Dwayne Khoury MD [address] [place] [phone] [facility] Start: 10-01-2023 Influenza vaccination Flu vaccine (#1) [facility] Start: 2023 End: 2023 Patient encounter procedure 2023 2:00 PM EDT Office Visit [facility] [address] [place] [address] Gaurav Sellers, UMESH [address] [facility], [address] [place] [address] [facility] Start: 09-01-2023 End: 09-01-2023 Patient encounter procedure 09/01/2023 10:30 AM EDT Appointment [facility] Physical Therapy [address] [place] [address] Osito Rowan [facility] Physical Therapy Start: 08-26-2023 End: 08-26-2023 Patient encounter procedure 08/26/2023 2:30 PM EDT Appointment [facility] Physical Therapy [address] [place] [phone] Kofi Villegas PT [facility] Physical Therapy Start: 08-18-2023 End: 08-18-2023 Patient encounter procedure 08/18/2023 9:45 AM EDT Appointment [facility] Physical Therapy [address] [place] [phone] Osito Rowan [facility] Physical Therapy Start: 08-11-2023 End: 08-11-2023 Patient encounter procedure 08/11/2023 1:15 PM EDT Appointment [facility] Physical Therapy [address] [place] [phone] Jan Olmstead, PT DRY NEEDLING [facility] Physical Therapy Comment on above: DRY NEEDLING Start: 08-04-2023 End: 08-04-2023 Patient encounter procedure 08/04/2023 4:15 PM EDT Appointment [facility] Physical Therapy [address] [place], [place] [phone] Osito Rowan [facility] Physical Therapy Start: 06-03-2023 End: 06-03-2023 Patient encounter procedure 06/03/2023 3:30 PM EDT Appointment [facility] Physical Therapy [address] [place], [place] [phone] Osito Rowan [facility] Physical Therapy Start: 06-02-2023 End: 06-02-2023 Patient encounter procedure [facility] Physical Therapy Comment on above: DRY NEEDLING- dont move coordinates with son's appt Start: 05-23-2023 Hepatitis B vaccine (3 of 3 - Hep B Twinrix 3-dose series) Hepatitis B vaccine (3 of 3 - Hep B Twinrix 3-dose series) [facility] Start: 05-20-2023 End: 05-20-2023 Patient encounter procedure 05/20/2023 3:15 PM EDT Appointment [facility] Physical Therapy [address] [place] [phone] Rojas Altamirano PTA [facility] Physical Therapy Start: 05-19-2023 End: 05-19-2023 Patient encounter procedure 05/19/2023 12:45 PM EDT Appointment [facility] Physical Therapy [address] [place], [place] [phone] Rebecca Skinner, PT DRY NEEDLING- dont move coordinates with son's apptDRY NEEDLING [facility] Physical Therapy Comment on above: DRY NEEDLING- dont move coordinates with son's apptDRY NEEDLING Start: 05-05-2023 End: 05-05-2023 Patient encounter procedure [facility] Physical Therapy Comment on above: DRY NEEDLING DRY NEEDLING- dont m ove coordinates with son's appt Start: 05-03-2023 Urine screening for protein Urine Microalbumin [facility] [employer] [facility] [employer] Start: 04-28-2023 End: 04-28-2023 Patient encounter procedure 04/28/2023 10:45 AM EST Office Visit [facility] [address] [place] [phone] Gaurav Sellers, UMESH [address] [place] [address] [facility] Start: 04-21-2023 End: 04-21-2023 Patient encounter procedure [facility] Physical Therapy Comment on above: DRY NEEDLING DRY NEEDLING- jd gibson coordinates with son's appt Start: 04-07-2023 End: 04-07-2023 Patient encounter procedure 04/07/2023 2:15 PM EST Appointment [facility] Physical Therapy [address] [place], [place] [phone] Rebecca Skinner PT DRY NEEDLING [facility] Physical Therapy Comment on above: DRY NEEDLING Start: 03-27-2023 End: 03-27-2023 Admission to same day surgery center 03/27/2023 1:27 PM EST - 03/27/2023 1:33 PM EST Surgery [facility] [address] [place] [phone] Zac Silver MD [address] [place], [place] [phone] INJECTION BLOCK SACROILIAC JOINT [39916 (CPT )] [facility] Comment on above: INJECTION BLOCK SACROILIAC JOINT [93901 (CPT )] Start: 03-27-2023 End: 03-27-2023 Inject si joint arthrgrphy&/anes/steroid w/monika INJECTION BLOCK SACROILIAC JOINT Disorder of sacrum 03/27/2023 1:27 PM EST [facility] Start: 03-27-2023 Subsequent hospital visit by physician 03/27/2023 1:27 PM EST Hospital Encounter [facility] [address] [place] [phone] Zac Silver MD [address] [place] [address] [facility] Start: 03-24-2023 End: 03-24-2023 Patient encounter procedure 03/24/2023 2:15 PM EST Appointment [facility] Physical Therapy [address] [place] [address] [phone] Rebecca Skinner, PT DRY NEEDLING [facility] Physical Therapy Comment on above: DRY NEEDLING Start: 03-19-2023 [facility] Start: 03-16-2023 End: 03-16-2023 Patient encounter procedure 03/16/2023 11:45 AM EST Appointment [facility] [address] [place] [address] [facility] Start: 03-10-2023 End: 03-10-2023 Patient encounter procedure 03/10/2023 2:30 PM EST Appointment [facility] Physical Therapy [address] [place] [phone] Rebecca Skinner, PT [facility] Physical Therapy Start: 09-30-2022 Influenza vaccination Flu vaccine (#1) [facility] Start: 10-31-2021 Influenza vaccination Flu vaccine (#1) [facility] Start: 09-03-2021 DTaP,Tdap and Td Vaccines (1 - Tdap) DTaP,Tdap and Td Vaccines (1 - Tdap) [facility] Start: 09-03-2021 DTaP/Tdap/Td vaccine (1 - Tdap) DTaP/Tdap/Td vaccine (1 - Tdap) [facility] Start: 05-02-2021 Depression Screening Depression Screening [facility] Start: 2020 Lipid panel Lipids [facility] Start: 01-04-2020 Diabetic foot examination Diabetic Foot Exam [facility] Start: 09-25-2015 Diabetes screen Diabetes screen [facility] Start: 2010 Screening for malignant neoplasm of cervix [facility] Start: 2001 Screening for malignant neoplasm of cervix Pap smear [facility] Start: 09-25-1999 DTaP/Tdap/Td vaccine (1 - Tdap) DTaP/Tdap/Td vaccine (1 - Tdap) [facility] Start: 1998 Adult BMI Follow Up Plan Adult BMI Follow Up Plan [facility] Start: 1998 Hepatitis C screening Hepatitis C screen [facility] Start: 09-25-1995 HIV screening HIV screen [facility] Start: 1993 Varicella vaccine (1 of 2 - 13+ 2-dose series) Varicella vaccine (1 of 2 - 13+ 2-dose series) [facility] Start: 1992 Depression Screen Depression Screen [facility] Start: 1992 Depression Screening Depression Screening [facility] Start: 1990 Lipid panel Lipids [facility] Start: 1981 Varicella vaccine (1 of 2 - 2-dose childhood series) Varicella vaccine (1 of 2 - 2-dose childhood series) [facility] Start: 03-27-1981 COVID-19 Vaccine (#1) COVID-19 Vaccine (#1) [facility] Start: 1980 Glaucoma screening Diabetic Ophthalmology Exam [facility] Start: 1980 Hepatitis B vaccine (1 of 3 - 3-dose series) Hepatitis B vaccine (1 of 3 - 3-dose series) [facility] Start: 1980 Statin Use: Diabetic Statin Use: Diabetic [facility] End: 11-14-2024 Culture, Urine [facility] Work Phone: Comment on above: 1 Occurrences starting 11/14/2024 until 11/14/2024 DHEA-sulfate DHEA-sulfate Lab Routine Hormone imbalance Hormone disorder Ordered: 04/18/2024 [facility] Comment on above: Ordered: 04/18/2024 EKG 12 Lead EKG 12 Lead ECG Routine 01/13/2024 2:59 PM EST [facility] [employer] Estradiol Estradiol Lab Ro utine Hormone imbalance Hormone disorder Ordered: 04/18/2024 [facility] Work Phone: Comment on above: Ordered: 04/18/2024 Estrone Estrone Lab Rout ine Hormone imbalance Hormone disorder Ordered: 04/18/2024 [facility] Comment on above: Ordered: 04/18/2024 Ferritin [Mass/volum e] in Serum or Plasma Ferritin Lab Routine Hormone imbalance Hormone disorder Ordered: 04/18/2024 [facility] Comment on above: Ordered: 04/18/2024 Hemoglobin A1c/Hemoglobin.total in Blood Hemoglobin A1c Lab Routine Hormone imbalance Hormone disorder Ordered: 04/18/2024 [facility] Comment on above: Ordered: 04/18/2024 End: 11-15-2024 INITIATE PACU OXYGEN THERAPY PROTOCOL Initiate PACU Oxygen Therapy Protocol Respiratory Care Routine Continuous until discontinued starting 11/15/2024 [employer] Work Phone: Comment on above: Continuous until discontinued starting 0 11/15/2024 Inject si joint arthrgrphy&/anes/steroid w/monika INJECTION BLOCK SACROILIAC JOINT Disorder of sacrum [facility] Ixchelsis Njx dx/ther agt pvrt facet jt lmbr/sac 1 level INJECTION BLOCK NERVE MEDIAL BRANCH Lumbosacral spondylosis without myelopathy [facility] [employer] System Oxygen therapy [[facility]] Initiate Oxygen Therapy Protocol Respiratory Care Routine As Needed until discontinued starting 11/15/2024 [employer] Work Phone: Comment on above: As Needed until discontinued starting Patient Education Know your Meds [facility] Work Phone: Patient referral [facility] Work Phone: Progesterone Progesterone Lab Routine Hormone imbalance Hormone disorder Ordered: 04/18/2024 [facility] Comment on above: Ordered: 04/18/2024 Sex hormone binding globulin Sex hormone binding globulin Lab Routine Hormone imbalance Hormone disorder Ordered: 04/18/2024 [facility] Comment on above: Ordered: 04/18/2024 [facility] Comment on above: Release Upon Ordering for 1 Occurrences starting 11/15/2024 Streptococcus pyogen es [Presence] in Unspecified specimen by Organism specific culture [facility] T3, reverse T3, reverse Lab Routine Hormone imbalance Hormone disorder Ordered: 04/18/2024 [facility] Comment on above: Ordered: 04/18/2024 TESTOSTERONE, FREE TESTOSTERONE, FREE Lab Routine Hormone imbalance Hormone disorder Ordered: 04/18/2024 [facility] Comment on above: Ordered: 04/18/2024 Testosterone, free, total Testos terone, free, total Lab Routine Hormone imbalance Hormone disorder Ordered: 04/18/2024 [facility] Comment on above: Ordered: 04/18/2024 THIN PREP TIS PAP AN D HR HPV DNA THIN PREP TIS PAP AND HR HPV DNA Pathology and Cytology Routine Well woman exam with routine gynecological exam Ordered: 05/26/2024 [facility] Comment on above: Ordered: 05/26/2024 Thyroid peroxidase antibody Thyroid peroxidase antibody Lab Routine Hormone imbalance Hormone disorder Ordered: 04/18/2024 [facility] Comment on above: Ordered: 04/18/2024 Thyroxine (T4) free [Mass/volume] in Serum or Plasma T4, free Lab Routine Hormone imbalance Hormone disorder Ordered: 04/18/2024 [facility] Comment on above: Ordered: 04/18/2024 Triiodothyronine (T3 ) Free [Mass/volume] in Serum or Plasma T3, free Lab Routine Hormone imbalance Hormone disorder Ordered: 04/18/2024 [facility] Comment on above: Ordered: 04/18/2024 Vitamin D 1,25 dihydroxy Vitamin D 1,25 dihydroxy Lab Routine Hormone imbalance Hormone disorder Ordered: 04/18/2024 [facility] Comment on above: Ordered: 04/18/2024 End: 11-07-2024 XR Abdomen Single view [facility] Work Phone: Comment on above: 1 Occurrences starting 11/07/2024 until 11/07/2024 Immunizations Immunization Date Immunization Notes Care Provider [facility] 12-07-2023 influenza, seasonal, injectable, preservative free Paula Sanderson MD Work Phone: [facility] 12-07-2023 influenza virus vaccine, unspecified formulation Shira Cardoso DO Work Phone: [facility] 05-25-2023 hepatitis A and hepatitis B vaccine Paula Sanderson MD Work Phone: [facility] 12-22-2022 hepatitis A and hepatitis B vaccine Paula Sanderson MD Work Phone: [facility] 12-22-2022 Seasonal, quadrivalent, recombinant, injectable influenza vaccine, preservative free Paula Sanderson MD Work Phone: [facility] 12-22-2022 influenza virus vaccine, unspecified formulation Deepika Robledo MD Work Phone: [facility] 06-23-2022 hepatitis A and hepatitis B vaccine Paula Sanderson MD Work Phone: [facility] 02-07-2022 Pneumococcal Conjuga te PCV 20 Paula Sanderson MD Work Phone: [facility] 12-23-2021 influenza, injectabl e, quadrivalent, preservative free Paula Sanderson MD Work Phone: [facility] 09-02-2021 TD(adult) unspecifie d formulation Paula Sanderson MD Work Phone: [facility] 09-02-2021 tetanus toxoid, reduced diphtheria toxoid, and acellular pertussis vaccine, adsorbed Shira Angel DO Work Phone: [facility] 12-24-2020 influenza, injectabl e, quadrivalent, preservative free Paula Sanderson MD Work Phone: [facility] 12-19-2019 influenza, injectabl e, quadrivalent, preservative free Paula Sanderson MD Work Phone: [facility] 12-19-2018 influenza, injectabl e, quadrivalent, preservative free Argenis Storm RN [facility] 12-02-2017 influenza, injectabl e, quadrivalent, preservative free Argenis Storm RN [facility] 12-02-2017 pneumococcal conjuga te vaccine, 13 valent Argenis Storm RN [facility] 10-10-2016 influenza virus vaccine, unspecified formulation Argenis Storm RN [facility] 10-10-2016 influenza, seasonal, injectable, preservative free Paula Sanderson MD Work Phone: [facility] 12-19-2013 influenza virus vaccine, live, attenuated, for intranasal use Argenis Storm RN [facility] 12-03-2012 influenza virus vaccine, whole virus Argenis Storm RN [facility] 12-29-2011 influenza virus vaccine, whole virus Argenis Storm RN [facility] 12-23-2010 influenza virus vaccine, whole virus Argenis Dotty RN [facility] 12-18-2008 influenza virus vaccine, whole virus Argenis Dotty RN [facility] Payers Date Payer Category Payer Self-pay [id number] 2022 Unknown 2013 Medicaid (Managed Care) 1.2. [id number]. [id number] 2002 Medicaid [id number]. 1.13.693.2. [id number] 2002 Medicaid [place] [employer] [id number]. [id number] 1980 Unknown [id number] 2.16.840.1.864121.3.579.2. 59 1980 Unknown [id number] 2.16.840.1.222928.3.579.2. 59 1980 Unknown [id number] 2.16.840.1.115257.3.579.2. 593 1980 Unknown [id number] 2.16.840.1.454908.3.579.2. 593 1980 Unknown [id number] 2.16.840.1.712383.3.579.2. 727 1980 Unknown [id number] 2.16.840.1.089464.3.579.2. 1285 1980 Unknown [id number] 2.16.840.1.849191.3.579.2. 1285 1980 Unknown [id number] 2.16840.1.562334.3.579.2. 1285 1980 Unknown [id number] 2.16840.1.399436.3.579.2. 1285 1980 Unknown [id number] 2.16840.1.033185.3.579.2. 1285 1980 Unknown [id number] 2.16840.1.042226.3.579.2. 1285 1980 Unknown [id number] 2.16840.1.785797.3.579.2. 1285 1980 Unknown [id number] 2.16840.1.380805.3.579.2. 1285 1980 Unknown [id number] 2.16840.1.681846.3.579.2. 1285 1980 Unknown [id number] 2.16840.1.821585.3.579.2. 1285 1980 Unknown [id number] 2.840.1.862758.3.579.2. 1285 1980 Unknown [id number] 2.16840.1.255351.3.579.2. 1285 1980 Unknown [id number] 2.16840.1.591432.3.579.2. 1980 Unknown [id number] 2.16840.1.778747.3.579.2. 1980 Unknown [id number] 2.16840.1.862871.3.579.2. 1980 Unknown [id number] 2.16840.1.815382.3.579.2. 1980 Unknown [id number] 2.16840.1.309691.3.579.2. 1980 Unknown [id number] 2.16840.1.381219.3.579.2. 1980 Unknown [id number] 2.840.1.614923.3.579.2. 1258 1980 Unknown [id number] 2.840.1.636837.3.579.2. 1258 1980 Unknown [id number] 2.0.1.637960.3.579.2. 1258 1980 Unknown [id number] 2.840.1.011572.3.579.2. 1258 1980 Unknown [id number] 2.840.1.366940.3.579.2. 1258 1980 Unknown [id number] 2.0.1.276580.3.579.2. 1258 1980 Unknown [id number] 04.17.830.1.757191.3.579.2. 1258 1980 Unknown [id number] 2.840.1.644628.3.579.2. 1258 1980 Unknown [id number] 840.1.611617.3.579.2. 1258 1980 Unknown [id number] 840.1.194967.3.579.2. 1258 1980 Unknown [id number] 2840.1.493657.3.579.2. 1258 1980 Unknown [id number] 2.840.1.613709.3.579.2. 1258 1980 Unknown [id number] 2.840.1.090056.3.579.2. 1258 1980 Unknown [id number] 2.16.840.1.225989.3.579.2. 9 1980 Unknown [id number] 2.16.840.1.959916.3.579.2. 1258 1980 Unknown [id number] 2.16.840.1.296134.3.579.2. 1258 1980 Unknown [id number] 2.16.840.1.652619.3.579.2. 173 1980 Unknown [id number] 2.16.840.1.613402.3.579.2. 1980 Unknown [id number] 2.16840.1.933915.3.579.2. 1980 Unknown [id number] 2.840.1.830225.3.579.2. 1980 Unknown [id number] 2.840.1.373670.3.579.2. 1980 Unknown [id number] 2.840.1.441979.3.579.2. 1980 Unknown [id number] 2.840.1.205466.3.579.2. 1980 Unknown [id number] 2.840.1.521132.3.579.2. 1980 Unknown [id number] 2.840.1.514431.3.579.2. 1980 Unknown [id number] 2.840.1.588576.3.579.2. 1980 Unknown [id number] 2.16840.1.058094.3.579.2. 1980 Unknown [id number] 2.16840.1.987269.3.579.2. 173 1959 Medicaid [id number] Unknown [id number] 2.16840.1.471954.3.579.2. 531 Unknown [id number] 2.16840.1.515309.3.579.2. 531 Unknown [id number] 2.16.840.1.226583.3.579.2. 531 Unknown [id number] 2.16.840.1.231426.3.579.2. 531 Social History Date Type Detail Facility Start: 09-02-2017 End: 03-10-2023 Tobacco smoking status WAIS Never smoked tobacco [employer] Start: 09-02-2017 End: 03-10-2023 Tobacco use and exposure Smokeless tobacco non-user [employer] Phone: Start: 10-11-2021 End: 01-13-2024 Alcohol intake Current non-drinker of alcohol (finding) [employer] Phone: Start: 1980 Sex Assigned At Not on file B ON [employer] Phone: Start: 10-01-2021 End: 10-22-2021 Exposure to SARS-CoV-2 (event) Not sure [employer] Phone: Start: 10-11-2021 End: 11-11-2024 Sex Assigned At [facility] Tobacco smoking status Never [facility] Start: 10-11-2021 End: 11-11-2024 History of Social function [employer] Start: 1980 Sex Assigned At Female F [facility] How often to you hav e a drink containing alcohol? Never [employer] Start: 02-11-2024 End: 11-11-2024 Alcoholic beverage intake Lifetime non-drinker (finding) [facility] Start: 03-11-2024 Sex Patient sex un known (finding) [facility] Start: 04-11-2012 End: 10-05-2014 Sex Female (finding) [facility] Medical [facility] Procedure Code Equipment Code Equipment Origin al Text Equipment Identifier Dates Implantation of hypoglossal nerve stimulator ([id number] [facility] Start: 08-10-2024 Implantation of hypoglossal nerve stimulator Implantable sleep apnoea treatment system, respiration-sensing ()[id number] FDA Start: 08-10-2024 Implantation of hypoglossal nerve stimulator ()[id number] FDA Start: 08-10-2024 Fruita Sut 5.5mm 2 Ft Crkscr Fbrwr Shldr 3 Pk 14.7mm Strl Ea=Bill-Only Rpl [id number] - [id number] Start: 05-15-2022 Use to test BLOO D SUGAR TWICE DAILY [id number] Start: 05-28-2020 Use to test BLOO D SUGAR TWICE DAILY, Diagnosis: E11.9 [id number] Start: 03-08-2020 Arthreximplant S ystem, Hand/Wrist Internal Brace Ligament Augmentation Repair ()[id number] FDA Start: 08-18-2024 Arthrex Dx Swive lock Sl, With Forked Eyelet, 3.5 X 8.5mm ()[id number] FDA Start: 08-18-2024 Arthrex Dx Swive lock Sl, With Forked Eyelet, 3.5 X 8.5mm ()[id number] FDA Start: 08-18-2024 0.062 9inch Stei nman Pin [id number] Start: 08-18-2024 Stent Uret 6fr L 24cm Hydr+ Grad Circumferential Mrk Lo Prof - [id number] Start: 11-15-2024 Goals Date Patient Goal Desired Activity /State Functional Status Date Assessment Result Facility [facility] Clinical Notes 10-22-2021 to 11-23-2024 Telephone Encounter - Austin Perkins - 11/16/2024 11:52 AM EDTTelephone Encounter - Austin Perkins - 11/16/2024 11:52 AM Deshawn Sam RN - 11/15/2024 6:25 PM EDTDischarge Instructions Note Date & Type Note Facility 11-23-2024 Note Subjective Patient ID: Karma Whitehead is a 44 y.o. female who presents for Hyperlipidemia, Obesity, Diabetes, Anemia, Patient is here today for surgery clearance for a breast re, and Follow-up (Patient is a usually seen at the [facility] office.Patient states she need to have [...] confusion. Pertinent negatives for hypoglycemia include no dizziness, headaches or seizures. Associated symptoms include chest pain. [...] with prolonged Qtc 483 msec Assessment/Plan Mr.s Whitehead has chest pain with typical and atypical features. Given long-standing diabetes a stress test is reasonable, however, she cannot do a treadmill stress test due to ankle orthopedic issues. Will try to schedule a lexiscan stress test. Regarding pre-operative risk prior to planned breast reduction surgery, I believe she is acceptable risk; her EKG today is normal and she [...] up in about 6 weeks (around 01/04/2025). [facility] 11-17-2024 Note HNO ID: [id number] Author: VINAY CANADA RT(R) Service: ? Author Type: Registered Dietician Type: Progress Notes Filed: 11/17/2024 12:42 Note Text: Radiology Service Progress Note PATIENT NAME: Karma Paul DATE OF SERVICE: November 17, 2024 TIME: 12:41 PM PATIENT IDENTITY VERIFICATION COMPLETED USING TWO (2) IDENTIFIERS: Name and Date of confirmed by patient verbally. FALL SCREENING: Has the patient had 2 falls in the last year or 1 fall with injury or currently using an Ambulatory Assistive Device (Walker, Cane, Wheelchair, Crutches, etc.)? Yes, Patient High Risk for Falls What interventions were put in place to prevent falls during this visit? Instructed Patient to Remain Seated (Not on Exam Table) Until Exam PATIENT GENDER DATA: Assigned female at . status: : No status: NO. PATIENT RELEVANT IMPLANT DATA REVIEWED: Not Applicable PATIENT PRESENTS WITH AN IMPLANTABLE OR ATTACHED RANCH HELPER: No RADIOLOGY DEPARTMENT: General X-ray: Exam(s) Completed: Lower Extremity X-Ray(s): Ankle, Bilateral and Wt. Bearing PERIPHERAL IV DATA: Not applicable SIGNED BY: VINAY CANADA, (R) November 17, 2024 12:41 PM [facility] 11-17-2024 Note HNO ID: [id number] Author: DAVID HDZ MD Service: ? Author Type: Physician Type: Progress Notes Filed: 11/17/2024 14:24 Note Text: November 17, 2024 HPI: Karma Paul is a 44 yo female with injury in June and then again a few weeks later to right ankle. Pain Descriptors: Duration: chronic Severity: moderate Quality: ache Location: foot, ankle Context: worse with activity and dependent position Modifying Factors: improved with rest and elevation Supporting Subjective Information Below: There is no height or weight on file to calculate BMI. Past Medical History PAST MEDICAL HISTORY Diagnosis Date Diverticulitis Surgical History: PAST SURGICAL HISTORY Procedure Laterality Date PAST SURGICAL HISTORY OF 12/2012 sinus surgery x2 PAST SURGICAL HISTORY OF repair of left ankle fracture TONSILLECTOMY HX 12/2012 Family History: No family history on file. Medications: Current Outpatient Medications Medication Sig ascorbic acid, vitamin C, (VITAMIN C) 500 mg tablet Take 500 mg by mouth two times a day. calcium carbonate-vitamin D3 600 mg-12.5 mcg (500 unit) cap Take 2 capsules by mouth once daily. cholecalciferol (VITAMIN D3) 5,000 unit tab Take 1 tablet by mouth once daily. lamoTRIgine (LAMICTAL) 200 mg tablet Take 200 mg by mouth. LINZESS 290 mcg capsule Take 290 mcg by mouth. lisdexamfetamine (VYVANSE) 70 mg capsule Take 70 mg by mouth every morning. metoprolol succinate ER (TOPROL XL) 25 mg 24 hr tablet Take 25 mg by mouth. lurasidone (LATUDA) 120 mg tablet Take 120 mg by mouth. rosuvastatin (CRESTOR) 10 mg tablet Take 10 mg by mouth. MOUNJARO 2.5 mg/0.5 mL pen injector Inject 2.5 mg subcutaneously. VITAMIN B COMPLEX PO Take 1 tablet by mouth once daily. empagliflozin (JARDIANCE) 25 mg tablet Take 25 mg by mouth once daily. docusate sodium (COLACE) 100 mg capsule Take 300 mg by mouth once daily. diclofenac, EC, (VOLTAREN) 75 mg EC tablet Take 75 mg by mouth. diclofenac (VOLTAREN) 1 % topical gel APPLY 2 (TWO) grams TO THE AFFECTED AREA(S) FOUR TIMES DAILY NEEDED FOR PAIN cyclobenzaprine (FLEXERIL) 10 mg tablet Take 10 mg by mouth. montelukast (SINGULAIR) 10 mg tablet Take 10 mg by mouth every evening. FLUoxetine 20 mg capsule Take 20 mg by mouth once daily. (Patient taking differently: Take 60 mg by mouth once daily.) ALBUTEROL SULFATE (PROAIR HFA INHALATION) Inhale as instructed as needed. fluticasone 50 mcg/actuation nasal spray Use 1 [place] in each nostril as needed. CYANOCOBALAMIN, VITAMIN B-12, (VITAMIN B-12 ORAL) Take by mouth once daily. MULTIVIT ANDMINERALS/FERROUS FUM (MULTI VITAMIN ORAL) Take by mouth once daily. ACIDOPHILUS/BULGARICUS (FLORANEX ORAL) Take by mouth once daily. (Patient not taking: Reported on 11/17/2024) Ferrous Sulfate 325 mg (65 mg iron) tablet Take 325 mg by mouth once daily. (Patient not taking: Reported on 11/17/2024) PYRIDOXINE HCL (VITAMIN B-6 ORAL) Take by mouth once daily. (Patient not taking: Reported on 11/17/2024) DIPHENHYDRAMINE HCL (BENADRYL ORAL) Take by mouth as needed. (Patient not taking: Reported on 11/17/2024) etonogestrel subdermal implant 68 mg (NEXPLANON) 68 mg by SUBDERMAL route one time only. Left arm (Patient not taking: Reported on 11/17/2024) No current facility-administered medications for this visit. Allergies: Keflex [Cephalexin], Celexa [Citalopram Hydrobromide], and Metformin Review Of Systems GENERAL:Negative for malaise, significant weight loss and fever HEENT:Negative for frequent or significant headaches, significant changes in vision or vision problems, significant ear problems or hearing loss, nasal discharge or nose bleeds and sore throat, difficulty swallowing, mouth lesions NECK:Negative for lumps, goiter, pain and significant neck swelling RESPIRATORY: Negative for cough, wheezing and shortness of breath CARDIOVASCULAR: Negative for chest pain, leg swelling and palpitations GASTROINTESTINAL: Negative for abdominal discomfort, blood in stools or black stools and change in bowel habits GENITOURINARY: Negative for dysuria, frequency and incontinence MUSCULOSKELETAL: Negative for joint pain or swelling, back pain, and muscle pain. NEUROLOGIC:Negative for focal numbness or weakness, headaches and dizziness. SKIN:Negative for lesions, rash, and itching. PSYCHIATRIC: Negative for sleep disturbance, mood disorder and recent psychosocial stressors. HEMATOLOGIC/LYMPHATIC/IMMUNOLOG IC:Negative for prolonged bleeding, bruising easily, and swollen nodes. ENDOCRINE: Negative for cold or heat intolerance, polyuria, polydipsia and goiter. Physical Exam: Basic physical examination reveals the patient to be in no acute distress. The patient is alert and oriented x 3 Mood and affect are appropriate. Head is atraumatic, normocephalic. Neck ROM grossly intact. Mucous membranes are moist. Eyes, ears, and nose are normal in appearance. Hearing is chano (more content not included)... [facility] 11-16-2024 Telephone encounter Note Mounjaro caused kidney stones so she wants to try for ozempic again. Please and thank you! [facility] 11-16-2024 Miscellaneous Notes Mounjaro caused kidney stones so she wants to try for ozempic again. Please and thank you! documented in this encounter [facility] 11-15-2024 History of Presen t illness Narrative Discharge Criteria Inpatients must meet Criteria 1 through 7. All other patients are either YES or N/A. If a NO is chosen then Anesthesia or Surgeon must be notified. 1. Minimum 30 minutes after last dose of sedative medication. Yes 2. Systolic BP between 90 - 160. Diastolic BP between 60 - 90. Yes 3. Pulse between 60 - 120 Yes 4. Respirations between 8 - 25. Yes 5. SpO2 92% - 100%. Yes 6. Able to cough and swallow or return to baseline function. Yes 7. Alert and oriented or return to baseline mental status. Yes 8. Demonstrates controlled, coordinated movements, ambulates with steady gait, or return to baseline activity function. Yes 9. Minimal or no pain or nausea, or at a level tolerable and acceptable to patient. Yes 10. Takes and retains oral fluids as allowed. Yes 11. Procedural / perioperative site stable. Minimal or no bleeding. Yes 12. If GI endoscopy procedure, minimal or no abdominal distention or passing flatus. Yes 13. Written discharge instructions and emergency telephone number provided. Yes 14. Accompanied by a responsible adult. Yes-Linnea massey BS 83 @5317. SORAYA Oneal stated patient can be transferred to phase 2 earlier if patient is comfortable. documented in this encounter [facility] 11-15-2024 [facility] Discharg e instructions Deshawn Saleem RN - 11/15/2024 5:20 PM EDT SAME DAY SURGERY DISCHARGE INSTRUCTIONS 1. Do not drive or operate hazardous machinery for 24 hours. 2. Do not make important personal or business decisions for 24 hours. 3. Do not drink alcoholic beverages for 24 hours. 4. Do not smoke tobacco products for 24 hours. 5. Eat light foods (Jell-O, soups, etc....) and drink plenty of fluids (water, Sprite, etc...) up to 8 glasses per day, as you can tolerate. 6. Limit your activities for 24 hours. Do not engage in heavy work until your surgeon gives you permission. 7. Patient should not be left alone for 12-24 hours following surgical procedure. 8. Wash hands before and after incision care. It is important to practice good personal hygiene during the post op period. 9. Call your surgeon for any questions regarding your surgery. CYSTOSCOPY DISCHARGE INSTRUCTIONS Possible burning during urination and/or blood tinged urine. Drink 6-8 glasses of water for the next day or so. (This helps to flush the urinary tract.) Call Dr. Stovall ([phone]) if you develop: Fever over 100 degrees Prolonged soreness/pain Unusual bleeding/bruising Unable to urinate or if urine is bloody You cannot pass urine 8 hours after the test. You have pain in your belly or your back just below your rib cage. (This is called flank pain.) You have frequent urge to urinate but can pass only small amounts of urine. Call Dr. Stovall office for follow-up appointment ([phone]). Gave a dose of pain med (Oxycodone 5mg) at 6:00 PM. Gave a dose of zofran at 6:05 PM documented in this encounter [facility] 11-15-2024 Miscellaneous Notes Images from the original note were not included. SPOKE TO PATIENT Pt stated her inspire CPAP is popping out of place due to her large breasts. ENT will not replace it until her breast reduction is done. I let her know that a request was faxed to her insurance to update approval dates.As soon as I receive the updated approval we can look at surgery dates. Pt was happy and will wait for my call once I receive the approval letter from her insurance. documented in this encounter [facility] 11-15-2024 Telephone encounter Note Images from the original note were not included. SPOKE TO PATIENT Pt stated her inspire CPAP is popping out of place due to her large breasts. ENT will not replace it until her breast reduction is done. I let her know that a request was faxed to her insurance to update approval dates.As soon as I receive the updated approval we can look at surgery dates. Pt was happy and will wait for my call once I receive the approval letter from her insurance. [facility] 11-11-2024 History of Presen t illness Narrative Subjective Patient ID: Karma Banegas is a 44 y.o. female who presents for Sleep Apnea (Thinks her Inspire has moved again) HPI This patient presents for recheck of her hypoglossal nerve stimulator. She believes the lead on the nerve has become disconnected. States that she is having dysfunction of her Inspire device. Not having any difficulties with displacement in her chest. Some discomfort in the area of the generator Review of Systems Patient states that her inspire device is not working well. Does describe some slight mobility in the area of her chest. She does have very large breast and is scheduled for evaluation regarding breast reduction. No difficulties with swallowing. No voice change. The rest of her review of systems is negative Objective ENT Physical Exam General Examination: General overview: Normal, age-appropriate, no evidence of distress, morbidly obese with very large breasts Head: Normocephalic, atraumatic Eyes: Pupils are equally round and reactive to light and accommodation, extraocular muscles are intact Ears: External ear architecture within normal limits, ear canals are patent, tympanic membranes are intact. Nose: External nose unremarkable, nares patent, septum intact, no evidence of congestion. Oral cavity: Mucosa moist, no evidence of ulcer, mass, or lesion Throat: Clear Neck/thyroid: Neck supple, full range of motion, no cervical lymphadenopathy, no evidence of thyromegaly. The area of her incision is well healed. Lymph nodes: No cervical lymphadenopathy Skin: Warm and dry, no evidence of suspicious lesions, no rash Heart: No jugular venous distention, point of maximal impulse normal Lungs: Good air movement, no audible wheezing, no shortness of breath Chest: Normal shape and expansion the incision from previous generator placement is intact. No evidence of displacement of the generator Abdomen: Normal, soft, nontender, nondistended Musculoskeletal: Cervical spine normal, full range of motion Extremities: No clubbing, cyanosis, or edema Peripheral pulses: 2+ radial, 2+ carotid Neurologic: Alert and oriented, cranial nerves 2-12 are grossly intact Psych: Alert and oriented, normal affect, no evidence of distress Assessment/Plan Diagnoses and all orders for this visit: Obstructive sleep apnea Comments: Sleep medicine regarding her inspire device Class 3 severe obesity with serious comorbidity and body mass index (BMI) of 40.0 to 44.9 in adult, unspecified obesity type ([facility]) Comments: Patient needs to be considered for breast reduction to prevent tension on the area of her generator placement. Intolerance of continuous positive airway pressure (CPAP) ventilation Comments: Patient should continue her efforts to lose weight. Recheck implant in 1 year documented in this encounter [facility] 11-11-2024 Miscellaneous Notes Pt called wanting to know the status of getting on the schedule for breast reduction. Pt has consult in Sep, Let pt know that it take a over a year to schedule surgery after consult and that the surgery schedule is working diligently to everyone scheduled. Transfer pt back to surgery schedulers to leave a message and let her know that someone will be getting back to her. Message relayed to scheduler maintenance, due to not being on the clinical staff pool. documented in this encounter [facility] 11-11-2024 Telephone encounter Note Pt called wanting to know the status of getting on the schedule for breast reduction. Pt has consult in Sep, Let pt know that it take a over a year to schedule surgery after consult and that the surgery schedule is working diligently to everyone scheduled. Transfer pt back to surgery schedulers to leave a message and let her know that someone will be getting back to her. [facility] 11-11-2024 Telephone encounter Note Message relayed to scheduler maintenance, due to not being on the clinical staff pool. [facility] 11-03-2024 Evaluation note Diagnosis Onset Date Resolution Hypersomnia acute October 3:37pm GERD (gastroesophageal reflux disease) acute November 17, 2024 8:46am Irritable bowel syndrome with constipation acute November 17, 2024 8:46am [facility] Work Phone: 1(351) 138-186009-03-2025 History of Present illness Narrative* Arcelia Duran, JO ANN - 11/02/2024 1:20 PM EDT Reason for Appointment: Patient ID: Karma Banegas is a 44 y.o. female who presents for DISCUSS RESULTS (Patient presents to office today to discuss plan of care for Osteoporosis. ) Patient presents today for Follow up appointment to discuss results. MEDICATIONS Current Outpatient Medications Medication Instructions albuterol [...] SUBCUTANEOUSLY (UNDER THE SKIN) EVERY 7 DAYS Mounjaro 5 mg, Subcutaneous, Every 7 days Multiple Vitamin (Tab-A-Karely) tablet 1 tablet, Daily mupirocin (Bactroban) 2 % ointment apply to left nose TWICE DAILY for 2 (TWO) weeks NEEDED naproxen (NAPROSYN) 500 mg, 2 times daily with meals pantoprazole (PROTONIX) 40 mg, Daily before breakfast [...] Noted Acute cholecystitis 09/15/2016 Anemia 03/10/2023 Asthma (HCC) 03/10/2023 Axillary lymphadenopathy 05/10/2020 Bilateral foot pain 03/10/2023 Cervical disc displacement 09/21/2017 Chronic rhinitis 03/10/2023 Disc displacement, lumbar 10/11/2018 Diverticulitis 03/10/2023 Intervertebral disc 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 12/02/2022 Lumbosacral spondylosis without myelopathy 07/22/2018 Obesity 03/10/2023 Primary osteoarthritis, left ankle and foot 03/10/2023 PTSD (post-traumatic stress disorder) 06/16/2018 Recurrent epistaxis 03/10/2023 Type 2 diabetes mellitus without complication (HCC) 11/10/2017 Well woman exam with routine gynecological exam 05/25/2023 Type 2 diabetes mellitus with hyperglycemia (HCC) 02/11/2024 Vitamin D deficiency, unspecified 02/11/2024 Hyperlipidemia, unspecified 02/11/2024 Other osteoporosis without current pathological fracture 11/02/2024 Resolved Ambulatory Problems Diagnosis Date Noted Hot flashes 03/10/2023 Postoperative abscess 09/28/2016 Open wound of toe without complication 03/10/2023 Disorder of sacrum 01/29/2023 Macromastia 10/08/2023 Mass of upper outer quadrant of right breast 06/02/2023 Symptomatic mammary hypertrophy 06/02/2023 Attention deficit hyperactivity disorder 04/27/2024 Circadian rhythm sleep disorder, shift work type 04/27/2024 Impulse control disorder 04/27/2024 Mixed bipolar affective disorder, moderate (HCC) 04/27/2024 Elevated liver function tests 08/17/2024 Fatty liver 08/17/2024 History of kidney stones 08/17/2024 Constipation 08/17/2024 Irritable bowel syndrome with constipation 08/17/2024 Musculoskeletal chest pain 08/17/2024 Other chronic pain 08/17/2024 Postoperative pain 08/17/2024 Reactive hypoglycemia 08/17/2024 Past Medical History: Diagnosis Date Bipolar disorder (HCC) Body mass index (BMI) of 36.0 to 36.9 Cholecystitis 2017 Controlled type 2 diabetes mellitus without complication, without long-term current use of insulin (HCC) Gastritis 2017 GERD (gastroesophageal reflux disease) Hyperlipemia Insertion of Nexplanon Iron deficiency anemia Kidney stones OCD (obsessive compulsive disorder) Seasonal allergies Umbilical hernia 2017 Vitamin D [...] diabetes mellitus with hyperglycemia (HCC) Umbilical hernia 2017 Vitamin D deficiency Social [...] Negative. Endocrine: Negative. Allergic/Immunologic: Negative. OBJECTIVE Objective: OBGyn Exam Vitals: Estimated body mass index is 40.74 kg/m as calculated from the following: Height as of 09/29/24: 5' 3 . Weight as of this encounter: 230 lb. BP: 106/68 No LMP recorded. ASSESSMENT & PLAN ICD-10-CM 1. Other osteoporosis without current pathological fracture M81.8 ferrous sulfate 28 MG tablet 2. Other iron deficiency anemia D50.8 ferrous sulfate 28 MG tablet Reviewed results of Dexa Scan with patient and considered to be osteopenic. Patient unable to tolerate Bisphoosphonates due to her severity of acid reflux. Patient has also had multiple recent fractures. Recommend patient begin calcium and Vitamin D and recommend Prolia prior to upcoming surgery onher ankle from recent fracture.. Documented by Arcelia Duran NP on behalf of: Roel Garber DO documented in this encounterSaint [facility] [id number] Telephone encounter Note* Telephone Encounter - Austin Perkins - 10/03/2024 2:40 PM EDT Pt would like to titrate up m[facility]o to [facility] please and thank you! [facility] [id number] Miscellaneous Notes* Telephone Encounter - Austin Perkins - 10/03/2024 2:40 PM EDT Pt would like to titrate up moun[facility]o to [facility] please and thank you! documented in this [facility]07-31-2025 History of Present illness Narrative* Shira Cardoso DO - 09/29/2024 10:15 AM EDT Subjective Patient ID: Karma Banegas is a 44 y.o. female who presents for Post-op HPI Patient presents after revision of her inspire implant. States to be doing well. Review of Systems No longer having any difficulties with pain or mobility of the implant. The rest of her review of systems is unchanged. Objective ENT Physical Exam Is healing quite nicely. Sutures are removed without difficulty. The implant is in good position. Assessment/Plan Diagnoses and all orders for this visit: Obstructive sleep apnea Comments: Follow-up with sleep Medicine, recheck in 1 year documented in this encounterSaint Louis [facility] [id number] History of Present illness Narrative* Shira Cardoso DO - 09/20/2024 1:00 PM EDT Subjective [...] diabetes mellitus with hyperglycemia (HCC) Umbilical hernia 2017 Vitamin D deficiency Current [...] , Rfl: cholecalciferol (Vitamin D-3) 50 MCG (1999 [place]) capsule, Take 2,000 Units by mouth [...] morning. Take with meals., Disp:, Rfl: fexofenadine (Jonathan) 180 MG tablet, Take 180 mg by [...] Insecurity: No Food Insecurity (10/05/2023) Received from [facility] Hunger Screening Within the past 12 [...] Not At Risk (06/20/2024) Received from [facility] Humiliation, Afraid, Rape, and Kick questionnaire Fear [...] 40.0 to 44.9 in adult,unspecified obesity type ([facility]) Breakdown (mechanical) of implanted electronic neurostimulator, generator, sequela Comments: recommend revision of her implant to minimize any further discomfort and mobility of the implant. Recommend open revision of her implant to suture it back down to the level of the pectoralis muscleto prevent mobility. documented in this encounterSaint [facility] [id number] Miscellaneous Notes* Telephone Encounter - Rebecca Rees - 09/06/2024 [...] surgery. PT was understanding. [facility] encounter Note* Telephone Encounter - Rebecca Rees - 09/06/2024 [...] scheduled for their surgery. PT was understanding. [facility]07-03-2025 History of Present illness Narrative* Shira Cardoso DO - 09/01/2024 10:45 AM EDT Subjective [...] scheduled in 1 year documented in this encounterSaint Louis [facility] [id number] History of Present illness Narrative* Shira Cardoso DO - 08/19/2024 1:15 PM EDT Subjective Patient ID: Karma Banegas [...] up in 1 year documented in this encounterSaint Louis [facility] [id number] Evaluation note* Diagnosis Onset Date Resolution Status Admit Date GERD (gastroesophageal reflu x disease) acute August 08, 2024 1 :22pm Irritable bowel syndrome wit h constipation acute August 08, 2024 1 :22pm [facility] Work Phone: 1(419) 287-567806-09-2025 Evaluation note* Diagnosis Onset Date Resolution Status Admit Date GERD (gastroesophageal reflu x disease) acute August 08, 2024 1 :22pm Irritable bowel syndrome wit h constipation acute August 08, 2024 1 :22pm Hypersomnia acute October 3:37pm [facility] Work Phone: 1(310) 566-207006-05-2025 History of Present illness Narrative* Cleo Zambrano [...] yet. HPI: 06/2020 New patient sent from [facility] for uncontrolled diabetes. A1c of 9.3 in [...] sulfate 325 mg, Daily with breakfast fexofenadine (JONATHAN) 180 mg, [...] GERD (gastroesophageal reflux disease) Hyperlipemia (CMS/[facility]) Impulse control disorder (CMS/HCC) 04/27/2024 Insertion of Nexplanon Iron deficiency anemia Kidney stones Macromastia 10/08/2023 Mass of upper outer quadrant of right breast 06/02/2023 Mixed bipolar affective disorder, moderate (CMS/HCC) 04/27/2024 OCD (obsessive compulsive disorder) (CMS/[facility]) Open wound of toe without complication 03/10/2023 PTSD (post-traumatic stress disorder) (CMS/[facility]) Recurrent epistaxis Seasonal allergies Symptomatic mammary hypertrophy 06/02/2023 Type 2 diabetes mellitus with hyperglycemia (CMS/HCC) Umbilical hernia 2017 Vitamin D deficiency Past [...] 2 diabetes mellitus without complication, unspecified whether usp insulin use - POCT glycosylated hemoglobin (Hb [...] 4 months (around 12/04/2024). documented in this encounterSaint Louis [facility] [id number] History of Present illness Narrative* Sonal Ball [...] sulfate 325 mg, Daily with breakfast fexofenadine (JONATHAN) 180 mg, [...] and foot 03/10/2023 PTSD (post-traumatic stress disorder) ([facility]) 06/16/2018 Recurrent epistaxis 03/10/2023 Type 2 diabetes mellitus without complication 11/10/2017 Well woman exam with routine gynecological exam 05/25/2023 Type 2 diabetes mellitus with hyperglycemia ([facility]) 02/11/2024 Vitamin D deficiency, unspecified 02/11/2024 Hyperlipidemia, unspecified ([facility]) 02/11/2024 Resolved Ambulatory Problems Diagnosis Date Noted Hot flashes 03/10/2023 Postoperative abscess 09/28/2016 Open wound of toe without complication 03/10/2023 Disorder of sacrum 01/29/2023 Macromastia 10/08/2023 Mass of upper outer quadrant of right breast 06/02/2023 Symptomatic mammary hypertrophy 06/02/2023 Attention deficit hyperactivity disorder ([facility]) 04/27/2024 Circadian rhythm sleep disorder, shift work type 04/27/2024 Impulse control disorder ([facility]) 04/27/2024 Mixed bipolar affective disorder, moderate ([facility]) 04/27/2024 Past Medical History: Diagnosis Date Bipolar disorder Body mass index (BMI) of 36.0 to 36.9 Cholecystitis 2016 Controlled type 2 diabetes mellitus without complication, without long-term current use of insulin Gastritis 2016 GERD (gastroesophageal reflux disease) Hyperlipemia ([facility]) Insertion of Nexplanon Iron deficiency anemia Kidney stones OCD (obsessive compulsive disorder) ([facility]) Seasonal allergies Umbilical hernia 2017 Vitamin D deficiency HISTORY PAST MEDICAL HISTORY SOCIAL HISTORY Past Medical History: Diagnosis Date Anemia Attention deficit hyperactivity disorder ([facility]) 04/27/2024 Bipolar disorder Body mass index (BMI) of 36.0 to 36.9 Cholecystitis 2017 Acute/chronic Chronic rhinitis Circadian rhythm sleep disorder, shift work type 04/27/2024 Controlled type 2 diabetes mellitus without complication, without long-term current use of insulin Disorder of sacrum 01/29/2023 Gastritis 2017 GERD (gastroesophageal reflux disease) Hyperlipemia ([facility]) Impulse control disorder ([facility] [facility]) 04/27/2024 Insertion of Nexplanon Iron deficiency anemia Kidney stones Macromastia 10/08/2023 Mass of upper outer quadrant of right breast 06/02/2023 Mixed bipolar affective disorder, moderate ([facility]) 04/27/2024 OCD (obsessive compulsive disorder) ([facility]) Open wound of toe without complication 03/10/2023 PTSD (post-traumatic stress disorder) ([facility]) Recurrent epistaxis Seasonal allergies Symptomatic mammary hypertrophy 06/02/2023 Type 2 diabetes mellitus with hyperglycemia ([facility]) Umbilical hernia 2017 Vitamin D deficiency Social [...] nursing note reviewed. Exam conducted with a schedule planning manager present. Vitals: Estimated body mass index is [...] of: Roel Garber DO documented in this encounterSaint Louis University Health Science [id number] Telephone encounter Note* Telephone Encounter - Austin Perkins - 07/20/2024 11:58 AM EDT Received request for surgery clearance based on last visit for wrist/hand surgery. Please advise. [facility] Science [id number] Miscellaneous Notes* Telephone Encounter - Austin Perkins - 07/20/2024 11:58 AM EDT Received request for surgery clearance based on last visit for wrist/hand surgery. Please advise. documented in this encounterSaint Louis University Health Science [id number] Hospital Discharge instructions* Discharge Instructions* Prieto Daniel PA-C - 07/16/2024 1:36 PM EDT May use ice and elevation for the ankle continue your ibuprofen and use of your Flexeril at home for muscle relaxant for your lower back would apply cold pack to the lower back for 20 minutes severaltimes a day as well. Follow-up with your primary care and or nursing specialist for these concerns. * Attachments The following attachments cannot be sent through Care Everywhere. * Back Pain (Uruguayan) * Arthritis (Uruguayan) documented in [facility] History of Present illness Narrative* Bela Ribeiro, JOHN - 06/30/2024 9:40 AM EDTAssociated Order(s): Insertion/Removal [...] sulfate 325 mg, Daily with breakfast fexofenadine (JONATHAN) 180 mg, [...] nursing note reviewed. Exam conducted with a schedule planning manager present. Vitals: Estimated body mass index is [...] by Bela Ribeiro LPN on behalf of: Role Garber DO documented in this encounterSaint Louis University Health Science [id number] NoteUTP CARDIOLOGY PROGRESS NOTE [facility] HPI: Karma Whitehead is a 43 y.o. [...] echocardiogram to assess c (more content not included)...[facility]04-14-[facility]25 History of Present illness Narrative* Shira Cardoso, DO - 06/13/2024 9:45 AM EDT [...] well as upcoming surgery documented in this encounterSaint Louis University Health Science [id number] Evaluation note* Diagnosis Onset Date Resolution Status Admit Date Constipation acute June 02, 025 9:26am Fatty liver acute June 02 9:26am GERD (gastroesophageal reflu x disease) acute June 02, 2024 9:26am IBS (irritable bowel syndrome) acute June 02, 2024 9:26am [facility] Work Phone: 1(856) 768-661004-03-2025 Evaluation note* Diagnosis Onset Date Resolution Status Admit Date Constipation acute June 02, 2 025 9:26am Fatty liver acute June 02 9:26am GERD (gastroesophageal reflu x disease) acute June 02, 2024 9:26am IBS (irritable bowel syndrome) acute June 02, 2024 9:26am GERD (gastroesophageal reflu x disease) acute August 08, 2024 1 :22pm Irritable bowel syndrome wit h constipation acute August 08, 2024 1 :22pm [facility] Work Phone: 1(227) 821-369203-27-2025 History of Present illness Narrative* Becky Silvestre, JOHN - 05/26/2024 11:00 AM EDT Reason for [...] 325 mg, Oral, Daily with breakfast fexofenadine (JONATHAN) [...] and foot 03/10/2023 PTSD (post-traumatic stress disorder) ([facility]) 06/16/2018 Recurrent epistaxis 03/10/2023 Type 2 diabetes mellitus without complication ([facility]) 11/10/2017 Well woman exam with routine gynecological exam 05/25/2023 Type 2 diabetes mellitus with hyperglycemia ([facility]) 02/11/2024 Vitamin D deficiency, unspecified 02/11/2024 Hyperlipidemia, unspecified ([facility]) 02/11/2024 Resolved Ambulatory Problems Diagnosis Date Noted Hot flashes 03/10/2023 Postoperative abscess 09/28/2016 Open wound of toe without complication 03/10/2023 Disorder of sacrum 01/29/2023 Macromastia 10/08/2023 Mass of upper outer quadrant of right breast 06/02/2023 Symptomatic mammary hypertrophy 06/02/2023 Attention deficit hyperactivity disorder ([facility]) 04/27/2024 Circadian rhythm sleep disorder, shift work type 04/27/2024 Impulse control disorder ([facility]) 04/27/2024 Mixed bipolar affective disorder, moderate ([facility]) 04/27/2024 Past Medical History: Diagnosis Date Bipolar disorder ([facility]) Body mass index (BMI) of 36.0 to 36.9 Cholecystitis 2017 Controlled type 2 diabetes mellitus without complication, without long-term current use of insulin ([facility]) Gastritis 2017 GERD (gastroesophageal reflux disease) Hyperlipemia ([facility]) Insertion of Nexplanon Iron deficiency anemia Kidney stones OCD (obsessive compulsive disorder) ([facility]) Seasonal allergies Umbilical hernia 2017 Vitamin D deficiency HISTORY PAST MEDICAL HISTORY SOCIAL HISTORY Past Medical History: Diagnosis Date Anemia Attention deficit hyperactivity disorder ([facility]) 04/27/2024 Bipolar disorder ([facility]) Body mass index (BMI) of 36.0 to 36.9 Cholecystitis 2017 Acute/chronic Chronic rhinitis Circadian rhythm sleep disorder, shift work type 04/27/2024 Controlled type 2 diabetes mellitus without complication, without long-term current use of insulin ([facility]) Disorder of sacrum 01/29/2023 Gastritis 2017 GERD (gastroesophageal reflux disease) Hyperlipemia ([facility]) Impulse control disorder ([facility]) 04/27/2024 Insertion of Nexplanon Iron deficiency anemia Kidney stones Macromastia 10/08/2023 Mass of upper outer quadrant of right breast 06/02/2023 Mixed bipolar affective disorder, moderate ([facility]) 04/27/2024 OCD (obsessive compulsive disorder) ([facility]) Open wound of toe without complication 03/10/2023 PTSD (post-traumatic stress disorder) ([facility]) Recurrent epistaxis Seasonal allergies Symptomatic mammary hypertrophy 06/02/2023 Type 2 diabetes mellitus with hyperglycemia ([facility]) Umbilical hernia 2017 Vitamin D deficiency Social [...] nursing note reviewed. Exam conducted with a schedule planning manager present. Vitals: Estimated body mass index is [...] of: Roel Garber DO documented in this encounterSaint Louis University Health Science [id number] History of Present illness Narrative* Shira Cardoso DO - 04/28/2024 10:30 AM EST [...] long-term current use of insulin ([facility]) Disorder of sacrum 01/29/2023 Gastritis 2017 GERD (gastroesophageal reflux disease) Hyperlipemia (CMS/HCC) Impulse control disorder (CMS/HCC) 04/27/2024 Insertion of Nexplanon Iron deficiency anemia Kidney stones Macromastia 10/08/2023 Mass of upper outer quadrant of right breast 06/02/2023 Mixed bipolar affective disorder, moderate ([facility]) 04/27/2024 OCD (obsessive compulsive disorder) ([facility]) Open wound of toe without complication 03/10/2023 PTSD (post-traumatic stress disorder) ([facility]) Recurrent epistaxis Seasonal allergies Symptomatic mammary hypertrophy 06/02/2023 Type 2 diabetes mellitus with hyperglycemia ([facility]) Umbilical hernia 2016 Vitamin D deficiency Current [...] needed at bedtime, Disp: , Rfl: fexofenadine (Jonathan) 180 MG tablet, Take 180 mg by [...] Insecurity: No Food Insecurity (10/05/2023) Received from [facility] Screening Within the past 12 [...] Patient encouraged to follow up with her golf course architect regarding the significant evidence of laryngopharyngeal reflux noted on endoscopy documented in this encounterSaint Louis University Health Science [id number] History of Present illness Narrative* Bela Ribeiro [...] famotidine (PEPCID) 40 mg, Nightly PRN fexofenadine (JONATHAN) 180 mg, Daily FLUoxetine (PROZAC) [...] Noted Acute cholecystitis 09/15/2016 Anemia 03/10/2023 Asthma ([facility]) 03/10/2023 Axillary lymphadenopathy 05/10/2020 Bilateral foot pain 03/10/2023 Cervical disc displacement 09/21/2017 Chronic rhinitis 03/10/2023 Disc displacement, lumbar 10/11/2018 Diverticulitis 03/10/2023 Intervertebral disc 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 12/02/2022 Lumbosacral spondylosis without myelopathy 07/22/2018 Obesity 03/10/2023 Primary osteoarthritis, left ankle and foot 03/10/2023 PTSD (post-traumatic stress disorder) ([facility]) 06/16/2018 Recurrent epistaxis 03/10/2023 Type 2 diabetes mellitus without complication ([facility]) 11/10/2017 Well woman exam with routine gynecological exam 05/25/2023 Type 2 diabetes mellitus with hyperglycemia (CMS/HCC) 02/11/2024 Vitamin D deficiency, unspecified 02/11/2024 Hyperlipidemia, unspecified ([facility]) 02/11/2024 Resolved Ambulatory Problems Diagnosis Date Noted Hot flashes 03/10/2023 Postoperative abscess 09/28/2016 Open wound of toe without complication 03/10/2023 Disorder of sacrum 01/29/2023 Macromastia 10/08/2023 Mass of upper outer quadrant of right breast 06/02/2023 Symptomatic mammary hypertrophy 06/02/2023 Past Medical History: Diagnosis Date Bipolar disorder ([facility]) Body mass index (BMI) of 36.0 to 36.9 Cholecystitis 2017 Controlled type 2 diabetes mellitus without complication, without long-term current use of insulin ([facility]) Gastritis 2017 GERD (gastroesophageal reflux disease) Hyperlipemia ([facility]) Insertion of Nexplanon Iron deficiency anemia Kidney stones OCD (obsessive compulsive disorder) ([facility]) Seasonal allergies Umbilical hernia 2017 Vitamin D deficiency HISTORY PAST MEDICAL HISTORY SOCIAL HISTORY Past Medical History: Diagnosis Date Anemia Bipolar disorder ([facility]) Body mass index (BMI) of 36.0 to 36.9 Cholecystitis 2017 Acute/chronic Chronic rhinitis Controlled type 2 diabetes mellitus without complication, without long-term current use of insulin ([facility]) Disorder of sacrum 01/29/2023 Gastritis 2017 GERD (gastroesophageal reflux disease) Hyperlipemia ([facility]) Insertion of Nexplanon Iron deficiency anemia Kidney stones Macromastia 10/08/2023 Mass of upper outer quadrant of right breast 06/02/2023 OCD (obsessive compulsive disorder) ([facility]) Open wound of toe without complication 03/10/2023 PTSD (post-traumatic stress disorder) ([facility]) Recurrent epistaxis Seasonal allergies Symptomatic mammary hypertrophy 06/02/2023 Type 2 diabetes mellitus with hyperglycemia ([facility]) Umbilical hernia 2017 Vitamin D deficiency Social [...] of: Roel Garber DO documented in this encounterSaint Louis University Health Science [id number] Telephone encounter Note* Telephone Encounter - Austin Perkins - 04/13/2024 1:29 PM EST PA needed for shanda. Thank you! [facility] [id number] Miscellaneous Notes* Telephone Encounter - Austin Perkins - 04/13/2024 1:29 PM EST UMESH needed for shanda. Thank you! documented in this encounterSaint Louis University Health Science [id number] History of Present illness Narrative* Cleo Zambrano [...] yet. HPI: 06/2020 New patient sent from [facility] for uncontrolled diabetes. A1c of 9.3 in [...] famotidine (PEPCID) 40 mg, Nightly PRN fexofenadine (JONATHAN) 180 mg, Daily FLUoxetine (PROZAC) [...] Medical History: Diagnosis Date Anemia Bipolar disorder ([facility]) Body mass index (BMI) of 36.0 to 36.9 Cholecystitis 2017 Acute/chronic Chronic rhinitis Controlled type 2 diabetes mellitus without complication, without long-term current use of insulin ([facility]) Disorder of sacrum 01/29/2023 Gastritis 2017 GERD (gastroesophageal reflux disease) Hyperlipemia ([facility]) Insertion of Nexplanon Iron deficiency anemia Kidney stones Macromastia 10/08/2023 Mass of upper outer quadrant of right breast 06/02/2023 OCD (obsessive compulsive disorder) ([facility]) Open wound of toe without complication 03/10/2023 PTSD (post-traumatic stress disorder) ([facility]) Recurrent epistaxis Seasonal allergies Symptomatic mammary hypertrophy 06/02/2023 Type 2 diabetes mellitus with hyperglycemia ([facility]) Umbilical hernia 2017 Vitamin D deficiency Past [...] 2 diabetes mellitus without complication, 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 documented in this encounterSaint Louis University Health Science [id number] Telephone encounter Note* Telephone Encounter - Austin Perkins - 02/16/2024 10:05 AM EST Pt would like ot know if you can try to get the ozempic approved again. She's gained 20lbs on trulicity. [facility] [id number] Miscellaneous Notes* Telephone Encounter - Austin Perkins - 02/16/2024 10:05 AM EST Pt would like ot know if you can try to get the ozempic approved again. She's gained 20lbs on trulicity. documented in this encounterSaint Louis University Health Science CenterHsrbrsgbxk57-15-2008 History of Present illness Narrative* Jan Olmstead, PT - 02/09/2024 11:15 AM EST [facility] Inpatient/Observation/Outpatient Rehabilitation Date: 02/09/2024 Patient [...] Cert. DN Date: 02/09/2024 documented in this encounterB[facility]11[facility] Hospital Discharge instructions* Discharge Instructions* Tirso Junior DO - 01/13/2024 5:40 PM EST Increase your fluid intake. Follow-up with your doctor to discuss your medications especially the gabapentin and cyclobenzaprine which can certainly make you feel tired and groggy all the time. * Attachments The following attachments cannot be sent through Care Everywhere. * Dizziness (Uruguayan) documented in this encounterBath Community Hospital09-30-2024 Telephone encounter Note* Telephone Encounter - [...] that the device is MRI compatible. [facility] [id number] Miscellaneous Notes* Telephone Encounter - Filomena Evans [...] Inspire device. Her BMI is 35.96, will Winona allow this BMI Her HST is from 04/2022, does need this updated Will she be able to have MRIs If all of this is ok we will send for Inspire consult We will need to call her with an update documented in this encounterSaint Louis University Health Science [id number] Telephone encounter Note* Telephone Encounter - Brittany Neville NP - 11/30/2023 11:11 AM EDT Please call Dr. Brito office and ask the following questions in regards to Inspire device. Her BMI is 35.96, will Fannie allow this BMI Her HST is from 04/2022, does need this updated Will she be able to have MRIs If all of this is ok we will send for Inspire consult We will need to call her with an update [facility] [id number] History of Present illness Narrative* Brittany Neville NP - 11/30/2023 10:20 AM EDT Images from the original note were not included. Chief Complaint Patient presents with Sleep Apnea Headache Numbness Subjective Karam states that pain management took her off [...] Medical History: Diagnosis Date Anemia Bipolar disorder ([facility]) Body mass index (BMI) of 36.0 to 36.9 Cholecystitis 2017 Acute/chronic Chronic rhinitis Controlled type 2 diabetes mellitus without complication, without long-term current use of insulin ([facility]) Gastritis 2017 GERD (gastroesophageal reflux disease) Hyperlipemia ([facility]) Insertion of Nexplanon Iron deficiency anemia Kidney stones OCD (obsessive compulsive disorder) ([facility]) Open wound of toe without complication 03/10/2023 PTSD (post-traumatic stress disorder) ([facility]) Recurrent epistaxis Seasonal allergies Umbilical hernia 2017 [...] She did switch to a provider in [place]. They did change her zanaflex and mobic [...] and see if BMI of 36 with Winona is feasible for Inspire device, if it [...] risks of stroke, MD, and sudden with JDAON, along with the need for compliance with the CPAP/BiPAP treatment. Return to clinic: 3 months documented in this encounterSaint Louis University Health Science [id number] History of Present illness Narrative* Jan Olmstead, PT - 10/20/2023 9:45 AM EDT [facility] Outpatient Physical Therapy Daily Note Patient: Karma Whitehead : 1980 CSN #: [id number] Referring Physician: Shawna Mcfadden DO Date: 10/20/2023 Treatment Diagnosis: LBP, cervical spine pain Onset Date: 02/18/23 PT Insurance Information: [employer] [employer] Plan Total # of Visits Approved: 32 [...] the cervical area and her LB area.-met Anesthesiologist Assistant Goals Time Frame for Anesthesiologist Assistant Goals : 6 visits Anesthesiologist Assistant Goal 1: Pt will be independent and compliant with exercise while maintaining improved posture 50% of the time - not met Anesthesiologist Assistant Goal 2: Pt will be able to perform full cervical ROM without increase complaints of baseline pain with initiation to demonstrate imporved control of pain -NOT MET: continued cervical spine pain. Anesthesiologist Assistant Goal 3: Pt will report 40% improvement in overall complaints and improved tolerance to her job tasks - 40% improved. Nursing Home Goal 4: Pt kvng UE strength will be 5/5 without increasing pain complaints to assist in tolerance of lifting and carrying -PARTIALLY MET 4+/5 grossly. Minutes Tracking: Time In: 45 Time Out: 1030 Minutes: 45 Timed Code Treatment Minutes: 43 Minutes Jan Olmstead PT, DPT, OCS, Cert. DN Date: 10/20/2023 documented in this encounterBON [facility] History of Present illness Narrative* Dwayne Khoury MD - 10/08/2023 9:00 AM EDT [facility] [address] Office Dwayne Khoury MD, PhD Caryl Mao, SCREW CUTTER-CLINICAL RESEARCH ANALYST Flori Harmon PA-C Plastic Surgery New Patient Consultation [...] mass follow up Ultrasound was done in [place] the nodule was noted but seemed consistent with a lymph node. Breast size has remained the same with weight loss Family history is positive for breast disease and breast cancer in her maternal grandmother Did she have children did breast feed Past Medical History: Past Medical History: Diagnosis Date Anxiety Asthma Back pain Bipolar 1 disorder ([facility]) Breast disorder enlarged lymph nodes in both breast Carpal tunnel syndrome Chronic pain disorder Deep vein thrombosis ([facility]) blood clot in left arm Dental disease [...] Type 2 diabetes mellitus without complication ([facility]) 11/10/2017 Visual impairment Past Surgical History: Past Surgical History: Procedure Laterality Date ANKLE SURGERY Left x2 ARTHROSCOPY SHOULDER WITH ROTATOR CUFF REPAIR Right 05/15/2022 Performed by Ana Paula Ingram MD at [facility] DEBRIDEMENT Right 05/15/2022 Performed by Ana Paula Ingram MD at [facility] DECOMPRESSION OF SUBACROMIAL SPACE WITH PARTIAL ACROMIOPLASTY Right 05/15/2022 Performed by Ana Paula Ingram MD at [facility] INJECTION BLOCK EPIDURAL STEROID LUMBAR/SACRAL: L 4/5 WU N/A 04/22/2021 Performed by Zac Silver MD at [facility] INJECTION BLOCK SACROILIAC JOINT Left 03/27/2023 Performed by Zac Silver MD at [facility] CERVICAL OR THORACIC EPIDURAL BLOCK WITH STEROIDS: C67 WU N/A 01/29/2018 Performed by Zac Silver MD at [facility] INJECTION LUMBAR OR SACRAL EPIDURAL BLOCK WITH STEROIDS: L45 WU N/A 10/15/2018 Performed by Zac Silver MD at [facility] INJECTION MEDIAL BRANCH NERVE BLOCK: bilat L45 51 Bilateral 07/30/2018 Performed by Zac Silver MD at [facility] SPINE TRANSFORAMINAL: left C 5,6 Nroot Left 01/09/2023 Performed by Zac Silver MD at [facility] LAPAROSCOPIC CHOLECYSTECTOMY N/A 09/16/2016 Performed by Juan Ramon Jean MD at [facility] LIVER BIOPSY EMA PROCEDURE Right 05/15/2022 Performed by Ana Paula Ingram MD at [facility] NASAL SURGERY REPAIR HERNIA UMBILICAL 09/16/2016 Performed by Juan Ramon Jean MD at [facility] TONSILLECTOMY Allergies: Allergies Allergen Reactions Metformin Severe [...] 5 blood-glucose meter (TRUE METRIX GLUCOSE METER) [facility] use to test BLOOD SUGAR TWICE [...] 04/28/2023), Disp: 30 tablet, Rfl: 5 fexofenadine (JONATHAN) 60 mg tablet, Take 1 tablet (60 [...] , Rfl: lancets (UNILET LANCET) 28 gauge [facility], Use to test [...] on 04/28/2023), Disp: 30 tablet, Rfl: 0 gppiacww-qsqp-LY-calcium &mins (THERAGRAN-M) 9 mg iron-400 mcg tablet, [...] nipple: 25 Areolar Diameter: 4.5 6 Female schedule planning manager present: yes. Impression : No diagnosis found. [...] also discussed that breast size can change control coordinator the years with weight loss and [...] clearance required: yes PCP Nicotine status: non-smoker FLORI HARMON PA-C I, DWAYNE KHOURY MD, PHD [...] procedures Referring and communicating with other health anesthesiologist and critical care (not separately reported) Documenting clinical information in the electronic or other health record Independently interpreting results (not separately reported) and communicating results to the patient/family/caregiver Care coordination (not separately reported) Please note that portions of this note were generated using voice recognition [employer] dictation software. Although every effort was made to ensure the accuracy of this automated medical billing instructor, some errors in medical billing instructor may have occurred. documented in this encounterSt. [facility] Hospital07-[facility] History of Present illness Narrative* Filomena Raphael [...] her next appt. documented in this encounterBON [facility] Miscellaneous Notes* Telephone Encounter - Argenis Storm RN - 09/08/2023 2:28 PM EDT Patient is asking for an increase in the Cymbalta. She is currently taking 30 mg daily and states it is no longer giving her relief. Patient is also requesting work restrictions to not lift any more than 20 lbs. She works at [employer] and it is difficult for her to [...] Will call back tomorrow. documented in this encounterSt. Charles Hospital07-09-2024 Telephone encounter Note* Telephone Encounter - Argenis Storm RN - 09/08/2023 2:28 PM EDT Patient is asking for an increase in the Cymbalta. She is currently taking 30 mg daily and states it is no longer giving her relief. Patient is also requesting work restrictions to not lift any more than 20 lbs. She works at [employer] and it is difficult for her to lift the pop and other items overhead. Patient did make an appointment for 09/24/23 to be re-evaluated for a lumbar MBB that was denied. She has completed PT and dry needling. [facility] Telephone encounter Note* Telephone Encounter - UMESH Hodge - 09/08/2023 2:28 PM EDT Is she still on fluoxetine? [facility] Telephone encounter Note* Telephone Encounter - Patricia Clay RN - 09/08/2023 2:28 PM EDT Patient was called and states that she is on [address] [facility] Telephone encounter Note* Telephone Encounter - UMESH Hodge - 09/08/2023 2:28 PM EDT I am not willing to escalate cymbalta due to higher dose of fluoxetine. [facility] Telephone encounter Note* Telephone Encounter - Patricia Clay RN - 09/08/2023 2:28 PM EDT Call placed to patient to inform her of provider's response and to inform her that a note has been written with work restrictions. Patient answered the phone but continued a conversation with someoneon her end of the phone. Will call back tomorrow. [facility] History of Present illness Narrative* Kofi Villegas, PT - 08/26/2023 2:30 PM EDT [facility] Outpatient Physical Therapy Daily Note Patient: Karma Whitehead : 1980 CSN #: [id number] Referring Physician: Shawna Mcfadden DO Date: 08/26/2023 Diagnosis: Z76.89 - Persons encountering health services in other specified circumstances Treatment Diagnosis: pain in cervical and LB Onset Date: 02/18/23 PT Insurance Information: [employer]rigg Total # of Visits Approved: 24 Per [...] the cervical area and her LB area.-met Anesthesiologist Assistant Goals Time Frame for Nursing Home Goals : 6 visits Nursing Home Goal 1: Pt will be independent and compliant with exercise while maintaining improved posture 50% of the time. Nursing Home Goal 2: Pt will be able to perform full cervical ROM without increase complaints of baseline pain with initiation to demonstrate imporved control of pain. Nursing Home Goal 3: Pt will report 40% improvement in overall complaints and improved tolerance to her job tasks. Minutes Tracking: Time In: 1430 Time Out: 1500 Minutes: 30 Timed Code Treatment Minutes: 29 Minutes Kofi Villegas, PT, DPT Date: 08/26/2023 documented in this encounterBON MER[facility]06-21-2024 History of Present illness Narrative* Filomena Raphael - 08/21/2023 10:45 AM EDT Physical Therapy Disregard the no show note on 08/17. This was added in error. * Jan Olmstead PT - 08/21/2023 10:45 AM EDT [facility] Outpatient Physical Therapy Daily Note Patient: Karma Whitehead : 1980 CSN #: [id number] Referring Physician: Shawna Mcfadden DO Date: 08/21/2023 Treatment Diagnosis: pain in cervical and LB Onset Date: 02/18/23 PT Insurance Information: [employer] Plan Total # of Visits Approved: 24 [...] the cervical area and her LB area. Anesthesiologist Assistant Goals Time Frame for Nursing Home Goals : 6 visits Anesthesiologist Assistant Goal 1: Pt will be independent and compliant with exercise while maintaining improved posture 50% of the time. Nursing Home Goal 2: Pt will be able to perform full cervical ROM without increase complaints of baseline pain with initiation to demonstrate imporved control of pain. Nursing Home Goal 3: Pt will report 40% improvement in overall complaints and improved tolerance to her job tasks. Nursing Home Goal 4: Pt kvng UE strength will be 5/5 without increasing pain complaints to assist in tolerance of lifting and carrying. Minutes Tracking: Time In: 1045 Time Out: 1116 Minutes: 31 Timed Code Treatment Minutes: 29 Minutes Jan Olmstead PT, DPT Date: 08/21/2023 documented in this encounterBON MER[facility]06-19-2024 Miscellaneous Notes* Telephone Encounter - Arcelia Corona CNA - 08/19/2023 4:44 PM EDT Karma left a voicemail requesting a refill and an increased dose for Cymbalta documented in this encounterWVUMedicine Harrison Community Hospitalcreads [id number] Telephone encounter Note* Telephone Encounter - Arcelia Corona CNA - 08/19/2023 4:44 PM EDT Karma left a voicemail requesting a refill and an increased dose for Cymbalta [facility] [id number] History of Present illness Narrative* Jan Olmstead, PT - 08/11/2023 1:15 PM EDT [facility] Outpatient Physical Therapy Daily Note Patient: Karma Whitehead : 1980 CSN #: [id number] Referring Physician: Shawna Mcfadden DO Date: 08/11/2023 Diagnosis: Z76.89 - Persons encountering health services in other specified circumstances Treatment Diagnosis: pain in cervical and LB Onset Date: 02/18/23 PT Insurance Information: [employer] Plan Total # of Visits Approved: 24 [...] the cervical area and her LB area. Anesthesiologist Assistant Goals Time Frame for Anesthesiologist Assistant Goals : 6 visits Anesthesiologist Assistant Goal 1: Pt will be independent and compliant with exercise while maintaining improved posture 50% of the time. Nursing Home Goal 2: Pt will be able to perform full cervical ROM without increase complaints of baseline pain with initiation to demonstrate imporved control of pain. Anesthesiologist Assistant Goal 3: Pt will report 40% improvement in overall complaints and improved tolerance to her job tasks. Anesthesiologist Assistant Goal 4: Pt kvng UE strength will be 5/5 without increasing pain complaints to assist in tolerance of lifting and carrying. Minutes Tracking: Time In: 1330 Time Out: 1400 Minutes: 30 Timed Code Treatment Minutes: 28 Minutes Jan Olmstead PT, DPT Date: 08/11/2023 documented in this encounterBON MER[facility]05-14-2024 History of Present illness Narrative* Filomena Raphael - 07/14/2023 11:15 AM EDT Physical Therapy [facility] Inpatient/Observation/Outpatient Rehabilitation Date: 07/14/2023 Patient [...] does not require skilled services due to: Therapist/Evaluation Specialist will attempt to see this patient, at our earliest opportunity. Filomena Raphael Date: 07/14/2023 documented in this encounterBON MER[facility]05-07-2024 Miscellaneous Notes* Telephone Encounter - Maty Fulton [...] had called me and informed me patient yarieye had laps. Patient was sent a letter per fannie.Patient let me know that maricruzanitablanca is now valid ok to put back in for the procedure. Will be resubmitting for the procedure today. documented in this encounterSt. Charles Hospital05-07-2024 Telephone encounter Note* Telephone Encounter - Maty [...] with neuropathy and tingling in bilateral hands. [facility] [id number] Telephone encounter Note* Telephone Encounter - Alfredito William - 07/07/2023 9:10 AM EDT Contacted patient letting her know back when I put in for the appeal buckeye had called me and informed me patient fannie had laps. Patient was sent a letter per fannie.Patient let me know that tessa is now valid ok to put back in for the procedure. Will be resubmitting for the procedure today. [facility]04[facility] History of Present illness Narrative* ADIA Albright [...] or lymphadenopathy. I reviewed notes from her assessment manager dated 05/05/2023, imaging including mammogram and ultrasounddated 03/16/2023 and 03/25/2023, history form dated 06/02/2023. Past Medical History Past Medical History: Diagnosis Date Anxiety Asthma Back pain Bipolar 1 disorder ([facility]) Breast disorder enlarged lymph nodes in both breast Carpal tunnel syndrome Chronic pain disorder Deep vein thrombosis ([facility]) blood clot in left arm Dental disease [...] night Type 2 diabetes mellitus without complication ([facility]) 11/10/2017 Visual impairment Past Surgical History Past Surgical History: Procedure Laterality Date ANKLE SURGERY Left x2 ARTHROSCOPY SHOULDER WITH ROTATOR CUFF REPAIR Right 05/15/2022 Performed by Ana Paula Ingram MD at [facility] Right 05/15/2022 Performed by Ana Paula Ingram MD at [facility] DECOMPRESSION OF SUBACROMIAL SPACE WITH PARTIAL ACROMIOPLASTY Right 05/15/2022 Performed by Ana Paula Ingram MD at [facility] INJECTION BLOCK EPIDURAL STEROID LUMBAR/SACRAL: L 4/5 WU N/A 04/22/2021 Performed by Zac Silver MD at [facility] INJECTION BLOCK SACROILIAC JOINT Left 03/27/2023 Performed by Zac Silver MD at [facility] CERVICAL OR THORACIC EPIDURAL BLOCK WITH STEROIDS: C67 WU N/A 01/29/2018 Performed by Zac Silver MD at [facility] LUMBAR OR SACRAL EPIDURAL BLOCK WITH STEROIDS: L45 WU N/A 10/15/2018 Performed by Zac Silver MD at [facility] MEDIAL BRANCH NERVE BLOCK: bilat L45 51 Bilateral 07/30/2018 Performed by Zac Silver MD at [facility] SPINE TRANSFORAMINAL: left C 5,6 Nroot Left 01/09/2023 Performed by Zac Silver MD at [facility] LAPAROSCOPIC CHOLECYSTECTOMY N/A 09/16/2016 Performed by Juan Ramon Jean MD at [facility] LIVER BIOPSY EMA PROCEDURE Right 05/15/2022 Performed by Ana Paula Ingram MD at [facility] NASAL SURGERY REPAIR HERNIA UMBILICAL 09/16/2016 Performed by Juan Ramon Jean MD at [facility] TONSILLECTOMY Family History Family History Problem [...] 04/28/2023), Disp: 30 tablet, Rfl: 5 fexofenadine (JONATHAN) 60 mg tablet, Take 1 tablet (60 [...] , Rfl: lancets (UNILET LANCET) 28 gauge [facility], Use to test [...] on 04/28/2023), Disp: 30 tablet, Rfl: 0 gzgwldpu-mngw-UY-calcium &mins (THERAGRAN-M) 9 mg iron-400 mcg tablet, [...] a bilateral screening mammogram on 03/16/2023 through [facility]. Her breasttissue is almost entirely fatty. There was a 1 cm mass in the posterior upper-outer right breast 17cm from the nipple. They thought this was likely a lymph node but recommended that she return for additional imaging. She had the imaging done in [place]. They did a right diagnostic mammogram and [...] me with any concerns. documented in this encounterSt. Charles Hospital03-12-2024 Miscellaneous Notes* Telephone Encounter - Ifrah Desouza - 05/12/2023 10:56 AM EDT Spoke with patient and scheduled with Dr. Robledo 4/2. Patient voiced understanding of appointment details. Patient was offered sooner dates but declined per her availability. documented in this encounterSt. Charles Hospital03-12-2024 Telephone encounter Note* Telephone Encounter - Ifrah Desouza - 05/12/2023 10:56 AM EDT Spoke with patient and scheduled with Dr. Robledo 4/2. Patient voiced understanding of appointment details. Patient was offered sooner dates but declined per her availability. [facility]02-29-[facility] Miscellaneous Notes* Telephone Encounter - Maty Fulton RN - 04/30/2023 1:28 PM EST Last Office Visit: 04/28/2023 Next Office Visit: Visit date not found Last Urine Drug Screen: No results found for: BENZOSCRN OARRS appropriate documented in this encounterSt. Charles Hospital02-29-2024 Telephone encounter Note* Telephone Encounter - Maty Fulton RN - 04/30/2023 1:28 PM EST Last Office Visit: 04/28/2023 Next Office Visit: Visit date not found Last Urine Drug Screen: No results found for: BENZOSCRN OARRS appropriate [facility]02-27-[facility] History of Present illness Narrative* UMESH Hodge - 04/28/2023 10:45 AM EST [facility] Pain Management [address] [place] [phone] Patient: Karma Banegas Sex: female : 1980 [...] spine (09/2022 last visit for 11/05/22) at [facility] with no relief Back: 10/15/18 [...] Anxiety Asthma Back pain Bipolar 1 disorder ([facility]) Breast disorder enlarged lymph nodes in both breast Carpal tunnel syndrome Chronic pain disorder Deep vein thrombosis ([facility]) blood clot in left arm Dental disease [...] Type 2 diabetes mellitus without complication ([facility]) 11/10/2017 Visual impairment Past Surgical History: Procedure Laterality Date ANKLE SURGERY Left x2 ARTHROSCOPY SHOULDER WITH ROTATOR CUFF REPAIR Right 05/15/2022 Performed by Ana Paula Ingram MD at [facility] Right 05/15/2022 Performed by Ana Paual Ingram MD at [facility] DECOMPRESSION OF SUBACROMIAL SPACE WITH PARTIAL ACROMIOPLASTY Right 05/15/2022 Performed by Ana Paula Ingram MD at [facility] INJECTION BLOCK EPIDURAL STEROID LUMBAR/SACRAL: L 4/5 WU N/A 04/22/2021 Performed by Zac Silver MD at [facility] INJECTION BLOCK SACROILIAC JOINT Left 03/27/2023 Performed by Zac Silver MD at [facility] INJECTION CERVICAL OR THORACIC EPIDURAL BLOCK WITH STEROIDS: C67 WU N/A 01/29/2018 Performed by Zac Silver MD at [facility] INJECTION LUMBAR OR SACRAL EPIDURAL BLOCK WITH STEROIDS: L45 WU N/A 10/15/2018 Performed by Zac Silver MD at [facility] MEDIAL BRANCH NERVE BLOCK: bilat L45 51 Bilateral 07/30/2018 Performed by Zac Silver MD at [facility] SPINE TRANSFORAMINAL: left C 5,6 Nroot Left 01/09/2023 Performed by Zac Silver MD at [facility] LAPAROSCOPIC CHOLECYSTECTOMY N/A 09/16/2016 Performed by Juan Ramon Jean MD at [facility] LIVER BIOPSY EMA PROCEDURE Right 05/15/2022 Performed by Ana Paula Ingram MD at [facility] NASAL SURGERY REPAIR HERNIA UMBILICAL 09/16/2016 Performed by Juan Ramon Jean MD at [facility] TONSILLECTOMY Allergies Allergen Reactions Metformin Severe [...] UMESH Hodge 04/30/23 1141 documented in this encounterWVUMedicine Harrison Community Hospitalcreads [id number] Instructions* Patient Instructions* Peg Conrad CLAUDE - 04/28/2023 10:45 AM EST Facet [...] the nearest emergency room. documented in this encounterSt. Charles Hospital02-19-2024 Hospital Discharge instructions* Discharge Instructions* Precious Urbina APRN - CNP - 04/20/2023 1:50 PM EST Increase fluid Tylenol Motrin for cough Continue home medications * Attachments The following attachments cannot be sent through Care Everywhere. * Head Injury: Closed: General Info (Uruguayan) * Cervical Strain (Uruguayan) documented in this encounterBON MER[facility]01-30-2024 Miscellaneous Notes* Telephone Encounter - Patricia [...] medications prescribed to someone other than her. Presentation Designer reiterated this to patient. Patient's pharmacy was confirmed with her. Order pended for review and signature. documented in this encounterCentral [facility] CenterSaint [facility]01-30-2024 Telephone encounter Note* Telephone Encounter - Patricia [...] are prescribed to someone other than her. [facility] CenterReviva [id number] Telephone encounter Note* Telephone Encounter - UMESH Hodge - 03/31/2023 9:30 AM EST Is she still taking prozac? What dosage? Any other antidepressants? [facility]01-30-2024 Telephone encounter Note* Telephone Encounter - Patricia Clay RN - 03/31/2023 9:30 AM EST Call placed to patient to confirm whether or not she is taking Prozac or other antidepressants. Patient states she is taking 40 mg Prozac daily. That is the only antidepressant that she takes. She isprescribed Latuda and Lamictal to treat Bipolar. [facility]01-30-2024 Telephone encounter Note* Telephone Encounter - UMESH Hodge - 03/31/2023 9:30 AM EST Can try cymbalta 30mg once daily [facility]01-30-2024 Telephone encounter Note* Telephone Encounter - Patricia Clay RN - 03/31/2023 9:30 AM EST Call placed to patient to inform her of provider's response. Patient is also educated not to take medications that are prescribed to someone other than her. Patient voices that she is aware that she should not be taking medications prescribed to someone other than her. Presentation Designer reiterated this to patient. Patient's pharmacy was confirmed with her. Order pended for review and signature. [facility]01-04-2024 Evaluation note* Encounter Date Diagnosis Assessment Notes [...] was counseling done by myself, Rhina ROBERTSON. [facility] 01-01-2024 Hospital Discharge instructions* Discharge Instructions* Sil Sullivan DO - 03/02/2023 7:49 PM EST Please follow-up with your GI doctor, trial enema at home, return to the ER for worsening abdominalpain, inability to pass gas, or nausea, vomiting * Attachments The following attachments cannot be sent through Care Everywhere. * Constipation (Uruguayan) documented in this encounterBON MERCY [facility]12-22-2023 Miscellaneous Notes* Telephone Encounter - Argenis [...] when she was under his care in [place]. She is currently taking Meloxicam that helps [...] the note. PVU. * Telephone Encounter - Zac Silver MD - 02/20/2023 10:04 AM EST [...] She states whatever . documented in this encounterSt. Charles Hospital12-22-2023 Telephone encounter Note* Telephone Encounter - [...] when she was under his care in [place]. She is currently taking Meloxicam that helps [...] add Dr. Silver on the note. PVU. [facility]12-22-2023 Telephone encounter Note* Telephone Encounter - Zac Silver MD - 02/20/2023 10:04 AM EST Discussed with nurse, I agree with Fartun's treatment plan going forward. [facility]12-22-2023 Telephone encounter Note* Telephone Encounter - UMESH Hodge - 02/20/2023 10:04 AM EST No Rx for tramadol. I have never written prescription for bra so I would not know how to proceed with anything like that. [facility]12-22-2023 Telephone encounter Note* Telephone Encounter - Argenis Storm RN - 02/20/2023 10:04 AM EST Patient aware of response. She states whatever . [employer]12-20-2023 Evaluation note* Encounter Date Diagnosis Assessment Notes Treatment Notes Treatment Clinical Notes Jan, Constipation, unspecified constipation type (ICD-10 - K59.00) Jan, Constipation (ICD-10 - K59.00) [facility] 12-12-2023 Miscellaneous Notes* Telephone Encounter - [...] and has f/u appt documented in this encounterSt. Charles Hospital12-12-2023 Telephone encounter Note* Telephone Encounter [...] pain is now related to sacroiliac joint. [facility]12-12-[facility] Telephone encounter Note* Telephone [...] sufficient reason to deny the current request. [facility]12[facility]12[facility] Telephone encounter Note* Telephone Encounter - Alfredito William - 02/10/2023 8:18 AM EST GOT APPROVAL [facility]12-12-2023 Telephone encounter Note* Telephone Encounter - Maty Fulton RN - 02/10/2023 8:18 AM EST Pt is scheduled 03/27 for procedure and has f/u appt [facility]12-07-2023 Evaluation note* Encounter Date Diagnosis Assessment Notes [...] R10.9) Jan, Rectal bleed (ICD-10 - K62.5) [facility] 11-16-2023 Evaluation note* Encounter Date Diagnosis [...] (ICD-10 - E11.65) request notes from Dr. Marroqiun Dec, History of kidney stones (ICD-10 - Z87.442) avoid topiramate for weight loss Dec, BMI 36.0-36.9,adult (ICD-10 - Z68.36) Dec, Other I have spent 30 minutes with this patient and over 50% of the visit was counseling done by myself, Rhina ROBERTSON. [facility] Other 11-08-2023 Evaluation note* Encounter Date Diagnosis [...] HAVE PATIENT START DOCUSATE 3 CAPSULES DAILY. [facility] Other 06-29-2023 Evaluation note* Encounter Date Diagnosis Assessment Notes Treatment Notes Treatment Clinical Notes Jul, Obesity (ICD-10 - E66.9) Jul, BMI 34.0-34.9,adult (ICD-10 - Z68.34) Jul, Other Summary of Visi t: (A) discussed continuing to work on small goals until stress decreases and she has the energy to increase goals (B) discussed healhtier choices at [employer] food blog reviewed (C) reviewed food storage tips for keeping produce fresh longer Patient set the following goals: - NEW: continue to choose sugar free beverages- not reviewed [facility] Other 05-30-2023 Evaluation note* Encounter Date Diagnosis [...] was counseling done by myself, Rhina ROBERTSON. [facility] Other 03-21-2023 Evaluation note* Encounter Date Diagnosis [...] was counseling done by myself, Rhina ROBERTSON. [facility] Other 02-07-2023 Evaluation note* Encounter Date Diagnosis [...] set the following goals: not reviewed today [facility] Other 02-07-2023 Evaluation note* Encounter Date Diagnosis [...] was counseling done by myself, Rhina ROBERTSON. [employer] Other 12-28-2022 Evaluation note* Encounter Date Diagnosis [...] patient set personal goal using given handout. [facility] Other 12-27-2022 Evaluation note* Encounter Date Diagnosis [...] was counseling done by myself, Rhina ROBERTSON. [facility] Other 12-01-2022 NotePROCEDURE: XR ANKLE LT MIN [...] Electronically authenticated by: ONEL CLARK Date: 2022-01-29 22:30[facility]12-01-2022 NotePROCEDURE: XR ANKLE LT MIN 3 [...] Electronically authenticated by: ONEL CLARK Date: 2022-01-29 22:30[facility]11-15-2022 Evaluation note* Encounter Date Diagnosis Assessment [...] was counseling done by myself, Rhina ROBERTSON. [facility] Other 10-05-2022 Evaluation note* Encounter Date Diagnosis [...] was counseling done by myself, Rhina ROBERTSON. [facility] Other 08-30-2022 Evaluation note* Encounter Date Diagnosis Assessment Notes Treatment Notes Treatment Clinical Notes Sep, Fatty liver (ICD-10 - K76.0) ENCOURAGED WEIGHT LOSS Sep, Obesity (BMI 30-39.9) (ICD-10 - E66.9) [facility] Other 08-23-2022 Hospital Discharge instructions* Discharge Instructions* Stanley Almonte PA-C - 10/22/2021 2:03 PM EDT Follow-up with primary care doctor 7 to 10 days for reevaluation. Take Motrin 800 mg as directed with food. Start eardrops left ear as directed. Promptly return to emergency department for new, changing or worsening of symptoms or other concerns. documented in this encounterBON [employer] Phone: evaluation + Plan note No data available for this section [facility] Diagnosis Pilonidal cyst- Primary Pilonidal cyst without mention of abscess documented in this encounter [facility] [employer] Phone: evaluation note* Diagnosis Acute diffuse otitis externa of left ear- Primary documented in this encounter [facility] [employer] Phone: evaluation noteNo InformationNort [employer] Other Evaluation note* Diagnosis Constipation, unspecified constipation type- Primary documented in this encounter [facility] [employer] noteNo assessment information available [facility] Work Phone: Evaluation note* Diagnosis Closed head injury, initial encounter- Primary Fall due to slipping on ice or snow, initial encounter Acute cervical myofascial strain, initial encounter documented in this encounter [facility] [employer] note* Diagnosis Onset Date Resolution Status ADHD acute BMI 36.0-36.9,adult acute Constipation acute Diabetes mellitus with hyperglycemia acute Fatty liver acute IBS (irritable bowel syndrome) acute Obesity acute Shifting sleep-work schedule, affecting sleep acute Constipation acute Elevated liver function tests acute Fatty liver acute IBS (irritable bowel syndrome) acute [facility] Work Phone: Evalukzjue note* Diagnosis Dizziness- Primary Dizziness and giddiness documented in this encounter [facility] [employer]Evaluation note* Diagnosis JADON (obstructive sleep apnea)- Primary [...] 2 diabetes mellitus without complication, unspecified whether usp insulin use ([facility])- Primary Vitamin D deficiency Weight gain Other symptoms concerning nutrition, metabolism, and development Encounter for dietary consultation Hyperlipemia, mixed ([facility]) Mixed hyperlipidemia Class 2 severe obesity due to excess calories with serious comorbidity and body mass index (BMI) of 39.0 to 39.9 in adult ([facility]) documented in [facility] encounter [facility]* Diagnosis Lumbosacral spondylosis without myelopathy- Primary documented in this encounter [facility] System[facility]* Diagnosis Mass of upper outer quadrant of right breast- Primary Abnormal mammogram Abnormal mammogram, unspecified Symptomatic mammary hypertrophy documented in this encounter [facility]* Diagnosis Macromastia- Primary Hypertrophy of breast documented in this encounter [facility]* Diagnosis Hormone imbalance Hormone disorder Unspecified endocrine disorder Toenail fungus documented in this encounter [facility]* Diagnosis Obstructive sleep apnea- Primary Obstructive sleep apnea (adult) (pediatric) Intolerance of continuous positive airway pressure (CPAP) ventilation Body mass index 34.0-34.9, adult Body Mass Index 34.0-34.9, adult documented in this encounter [facility]* Diagnosis Well woman exam with routine gynecological exam Routine gynecological examination Breast cancer screening by mammogram documented in this encounter [facility]* Diagnosis Onset Date Resolution Status Admit Date Constipation acute June 02, 025 9:26am Fatty liver acute June 02 9:26am IBS (irritable bowel syndrome) acute June 02, 2024 9:26am [facility] Work Phone: Evaluation note* Diagnosis Obstructive sleep apnea- Primary Obstructive sleep apnea (adult) (pediatric) Intolerance of continuous positive airway pressure (CPAP) ventilation Class 3 severe obesity with serious comorbidity and body mass index (BMI) of 40.0 to 44.9 in adult, unspecified obesity type documented in this encounter [facility]* Diagnosis Nexplanon removal documented in this encounter [facility]* Diagnosis Post-traumatic osteoarthritis of left ankle- Primary Midline low back pain without sciatica, unspecified chronicity [facility] Diagnosis Itching with irritation Nexplanon removal documented in this encounter [facility] note* Diagnosis Type 2 diabetes mellitus without complication, unspecified whether usp insulin use- Primary Vitamin D deficiency Weight gain Other symptoms concerning nutrition, metabolism, and development Encounter for dietary consultation Hyperlipemia, mixed ([facility]) Mixed hyperlipidemia Class 3 severe obesity due to excess calories without serious comorbidity with body mass index (BMI) of 40.0 to 44.9 in adult documented in this encounter [facility]* Diagnosis Obstructive sleep apnea- Primary Obstructive sleep apnea (adult) (pediatric) Intolerance of continuous positive airway pressure (CPAP) ventilation documented in this encounter [facility]* Diagnosis Obstructive sleep apnea- Primary Obstructive sleep apnea (adult) (pediatric) documented in this encounter [facility]* Diagnosis Obstructive sleep apnea- Primary Obstructive sleep apnea (adult) (pediatric) Class 3 severe obesity with serious comorbidity and body mass index (BMI) of 40.0 to 44.9 in adult, unspecified obesity type ([facility]) Breakdown (mechanical) of implanted electronic neurostimulator, generator, sequela documented in this encounter [facility]* Diagnosis Obstructive sleep apnea- Primary Obstructive sleep apnea (adult) (pediatric) documented in this encounter [facility]* Diagnosis Osteopenia, unspecified location- Primary Other osteoporosis without current pathological fracture Other iron deficiency anemia documented in this encounter [facility]* Diagnosis Renal calculus Calculus of kidney [facility] note* Diagnosis Obstructive sleep apnea- Primary Obstructive sleep apnea (adult) (pediatric) Class 3 severe obesity with serious comorbidity and body mass index (BMI) of 40.0 to 44.9 in adult, unspecified obesity type ([facility]) Intolerance of continuous positive airway pressure (CPAP) ventilation documented in [facility]* Diagnosis Gross hematuria Renal colic documented in this encounter [facility] Softwarealuation note* Diagnosis Ureteral stone with hydronephrosis- Primary Calculus of ureter documented in this encounter [facility]MoveInSyncEvalusaint francis healthcare note* Diagnosis Pre-op testing Preoperative examination, unspecified documented in this [facility]* Diagnosis Gross hematuria Renal colic documented in this encounter [facility] Softwarealuation note* Diagnosis Flank pain- Primary Abdominal pain, unspecified site Right lower quadrant abdominal pain Abdominal pain, right lower quadrant documented in this encounter [facility]InSyncEvaluation note* Diagnosis Type 2 diabetes mellitus without complication, 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)- Primary [facility] HealthcareHistory general Narrative - Reported* Type Description Date Medical History PTSD Medical History DIVERTICULITOUS Surgical History 2 BACK INJECTIONS 2014 Surgical History LEFT ANKLE 2002 Surgical History CHOLECYSTECTOMY Hospitalization History SEE ABOVE [facility] Other [facility] general Narrative - Reported* Type Description Date Medical History PTSD Medical History DIVERTICULITOUS Medical History bipolar Medical History ADHD Surgical History 2 BACK INJECTIONS 2014 Surgical History LEFT ANKLE 2002 Surgical History CHOLECYSTECTOMY Surgical History nasal surgery Hospitalization History SEE ABOVE [facility] Other [employer] general Narrative - Reported* Type Description Date Medical History PTSD Medical History DIVERTICULITOUS Medical History bipolar Medical History ADHD Surgical History 2 BACK INJECTIONS 2014 Surgical History LEFT ANKLE 2002 Surgical History CHOLECYSTECTOMY Surgical History nasal surgery Surgical History right Rotator surgery 05-15-22 Hospitalization History SEE ABOVE [facility] Other Hisujze general Narrative - Reported* Type Description Date Medical History PTSD Medical History DIVERTICULITOUS Medical History bipolar Medical History ADHD Medical History rotator cuff tear Surgical History 2 BACK INJECTIONS 2014 Surgical History LEFT ANKLE 2002 Surgical History CHOLECYSTECTOMY Surgical History nasal surgery Surgical History right Rotator surgery 05-15-22 Hospitalization History SEE ABOVE [facility] Other Hisgxod general Narrative - Reported* Type Description Date Medical History PTSD Medical History DIVERTICULITOUS Medical History bipolar Medical History ADHD Medical History rotator cuff tear Surgical History 2 BACK INJECTIONS 2014 Surgical History LEFT ANKLE 2002 Surgical History CHOLECYSTECTOMY Surgical History nasal surgery Surgical History right Rotator surgery 05-15-22 Surgical History Neck injections/root burnt 12/31 Hospitalization History SEE ABOVE [facility] Other [facility] general Narrative - Reported* Type Description Date Medical History PTSD Medical History DIVERTICULITOUS Medical History bipolar Medical History ADHD Medical History rotator cuff tear Surgical History 2 BACK INJECTIONS 2014 Surgical History LEFT ANKLE 2002 Surgical History CHOLECYSTECTOMY Surgical History nasal surgery Surgical History right Rotator surgery 05-15-22 Surgical History Neck injections/root burnt 12/31 Hospitalization History SEE ABOVE Hospitalization History [facility]- onstipation 03-02-2023 [facility] Other Hospital Discharge instructions* Attachments The following attachments cannot be sent through Care Everywhere. * Pilonidal Abscess (Uruguayan) [facility]: Hospital Discharge instructions No data available for this section [facility] Additional Instructions No exertional activity Ice to incisions for pain and swelling Medications as prescribed May shower in 24 hours Call the office for any questions or concerns [facility] Work Phone[facility] Hospital Discharge instructions Additional Instructions No exertional activity, no lifting or straining, Ice to incision for 20-minute intervals May shower in 24 hours Pain medication and antibiotic as prescribed Call the office for any questions or concerns [facility] Work Phone: Hospital Discharge instructions* Attachments The following attachments cannot be sent through Care Everywhere. * Abdominal Pain (Uruguayan) * Flank Pain (Uruguayan) documented in [facility] encounterB[facility] HospitalInstructionsNot on file documented in this [facility] SystemInstructionsNot on file documented in this [facility] SystemInstructionsNot on file [facility] SystemInstructionsNot on file [facility] in [facility] (formerly [facility]) SystemInstructionsNot on file documented in this [facility] [employer] ([employer]) SystemInstructionsNot on file documented in [facility] (formerly [employer]) SystemInstructionsNot on file documented in this encounterWVUMedicine Harrison Community Hospitalcreads SystemProgress note No data available for this section [facility] for referral (narrative)* Consultation (Routine) - Pending Review Specialty Diagnoses / Procedures Referred By Karla cuadra Referred To Contact Otolaryngology Diagnoses JADON (obstructive sleep apnea) Procedures [place] OFFICE/OUTPATIENT [facility] 60 MINUTES Brittany Neville NP [address] [place] [address] Referral ID Status Reason Start Date Expiration Date Visits Requested Visits Authorized [id number] Pending Review Specialty Services Required 11/30/2023 05/28/20[address] Brito [facility] Inspire [facility]. [facility] (narrative)No reason for referral information availableJoint [facility] Work Phone: [facility] Narrative* Consultation (Routine) - Pending Review Specialty Diagnoses / Procedures Referred By Karla cuadra Referred To Contact Breast Surgery Diagnoses Abnormal mammogram Lisa Fisher MD [address] [place] [id number] [place] [address] [place] [address] [address] [place] [address] Referral ID Status Reason Start Date Expiration Date V isits Requested Visits Authorized [id number] Pending Review 05/06/2023 05/05/[address] [facility] Narrative* Auth/Cert Specialty Diagnoses / Procedures Referred By Karla cuadra Referred To Contact Diagnoses Ureteral stone with hydronephrosis Procedures [place] CYSTO/URETERO W/LITHOTRIPSY &INDWELL STENT INSRT CYSTOSCOPY URETEROSCOPY LASER-right ureteroscopy/thulium laser lithotripsy with possible right ureteral stent placement/exchange Martir Stovall MD [address] [place] [address], [address] [place] [address] Phone: tel: fax: [employer] [address] [place] [address] Referral ID Status Reason Start Date Expiration Date Visits Re quested Visits Authorized [id number] 1 1 [facility] Narrative* Imaging (Emergency) - Open Specialty Diagnoses / Procedures Referred By Karla cuadra Referred To Contact Radiology Diagnoses Gross hematuria Renal colic Procedures CT ABDOMEN PELVIS WO CONTRAST Additional Contrast? None Ruddy Valencia PA-C [address] [facility] [address] [place] [address] Phone: tel: fax: Referral ID Status Reason Start Date Expiration Date Visits Re quested Visits Authorized [id number] Open 11/14/2024 11/14/2025 1 1 [employer] Summary Purpose Family History No Family History [...] Time Advance Directives No August 29 3:24pm Date Activated Date Inactivated Comments 11/15/2024 3:11 PM Date Activated Date Inactivated Comments 11/15/2024 3:11 PM 11/15/2024 8:41 PM Date Activated Date Inactivated Comments 11/15/2024 3:11 PM 11/15/2024 8:41 PM Reason for Referral Reason *FU 11/05 [...] [facility] [address] [place] [address] Referral ID Status Reason Start Date Expiration Date V isits Requested Visits Authorized [id number] Pending Review 04/28/2023 04/27/2024 1 1 Chief [...] May 9:26am GERD (gastroesophageal reflux disease) J [facility] 2024 1:22pm Irritable bowel syndrome with constipati [...] Admit Date GERD (gastroesophageal reflux disease) J [facility] 2024 1:22pm Irritable bowel syndrome with constipati on August 08, 2024 1:22pm Chief Complaint Admit Date Discuss Probiotic August 08, 2024 1:22p m Sleep Apnea August 10, 2024 6:11 am mechanical breakdown nerve stimulator Ju ly 2024 10:19am inspire appt - add per ND November 03, 2024 3:37pm Reason for Visit Admit Date GERD (gastroesophageal reflux disease) J [facility] 2024 1:22pm Irritable bowel syndrome with constipati on August 08, 2024 1:22pm Hypersomnia November 03, 2024 3:37pm Chief Complaint Admit Date mechanical breakdown nerve stimulator Ju ly 2024 10:19am inspire appt - add per ND November 03, 2024 3:37pm 3m dyspepsia/Ibs c November 17, 2024 8:46am Reason for Visit Admit Date Hypersomnia November 03, 2024 3:37pm GERD (gastroesophageal reflux disease) S eptember 2024 8:46am Irritable bowel syndrome with constipati on November 17, 2024 8:46am Additional Source Comments INFORMATION SOURCE (unrecogn ized section and content) DATE CREATED AUTHOR 08/26/[address] [facility] DATE CREATED AUTHOR AUTHOR'S ORGANIZ ATION 05/30/2022 [facility] DATE CREATED AUTHOR AUTHOR'S ORGANIZ ATION 01/18/2023 [facility] DATE CREATED AUTHOR AUTHOR'S ORGANIZ ATION 06/04/2023 [facility] DATE CREATED AUTHOR AUTHOR'S ORGANIZ ATION 10/10/2023 [facility] DATE CREATED AUTHOR AUTHOR'S ORGANIZ ATION 12/22/2023 [facility] DATE CREATED AUTHOR AUTHOR'S ORGANIZ ATION 08/21/2024 [facility] DATE CREATED AUTHOR AUTHOR'S ORGANIZ ATION 10/04/2024 [facility] DATE CREATED AUTHOR AUTHOR'S ORGANIZ ATION 11/13/2024 [facility] DATE CREATED AUTHOR AUTHOR'S ORGANIZ ATION 11/13/2024 [facility] DATE CREATED AUTHOR AUTHOR'S ORGANIZ ATION 11/19/2024 [facility] DATE CREATED AUTHOR AUTHOR'S ORGANIZ ATION 11/20/2024 [facility] DATE CREATED AUTHOR AUTHOR'S ORGANIZ ATION 11/24/2024 [facility] Reason for Visit (unrecogniz ed [...] month ago. Pt evaluated and treated at [facility].Pt fell again x2 weeks ago. Pt evaluated at [facility] and treated for right ankle and wrist fracture. Pt has MRI scheduled.Pt currently being treated by Pain Management. Reason Onset Date Comments Advice Only 07/20/2024 Reason Comments Follow-up Reason Comments Post-op Post op Inspire Reason Comments Post-op Having problems with inspire Reason Comments Post-op Still having trouble with Inspire Reason Comments Post-op Reason Onset Date Comments Med Refill 10/03/2024 Reason Comments DISCUSS RESULTS Patient presents to office today to discuss plan of care for Osteoporosis. Reason Comments Sleep Apnea Thinks her Inspire h as moved again Reason Onset Date Comments Med Refill 11/16/2024 Reason Comments Abdominal Pain Flank Pain Pt states she had a kidney stone blasted on Thursday and has a stent place by Dr. Umana. Pt c/o increasing pain to her RLQ and right flank Ordered Prescriptions (unrec ognized section and content) Prescription Sig Dispensed Refills Start Date End Da te clindamycin (CLEOCIN) 150 MG capsule Take 3 capsules by mouth in the morning and 3 capsules at noon and 3 capsules before bedtime. Do all this for 10 days. 90 capsule 0 10/12/2021 10/22/2021 Prescription Sig Dispensed Refills Start Date End Da te fzttqnkg-frxtvntob-zkhygx ortisone (CORTISPORIN) 3.5-08452-[address] 4 drops into the left ear 3 times daily for 7 days Instill into left Ear TID x 7 days 10 mL 0 10/22/2021 10/29/2021 Prescription Sig Dispense Quantity Refills Last Filled Start Date End Date oxyCODONE-acetamin ophen (PERCOCET) 5-325 MG per tabletIndications: Flank pain Take 1 tablet by mouth every 6 hours as needed for Pain for up to 3 days. Intended supply: 3 days. Take lowest dose possible to manage pain Max Daily Amount: 4 tablets 12 tablet 11/17/2024 5 Scheduled Active and Recently Administ ered Medications [...] RN)1756 (Stopped - Provider: Ranjana Hyde RN) Scheduled Medication Order 11/13/2024 11/14/2024 11/15/2024 levoFLOXacin (LEVAQUIN) 500 MG/100ML infusion 500 mg (COMPLETED) 500 mg, IntraVENous, LOCATION MANAGER TO O.R., 1 dose, On Thu11/15/24 at 1530, Antimicrobial Indications: Surgical Prophylaxis, Administer within 1 hour prior to incision., Pre-op (day of surgery) 1628 (New Bag - Prov ider: Austin Chavarria RN - Comment: in OR)1728 (Due: Stopped - Provider: Austin Chavarria RN) sodium chloride flush 0.9 % injection 5-40 mL 5-40 mL, IntraVENous, EVERY 12 HOURS SCHEDULED (2 times per day), First dose on Thu11/15/24 at 2100, Until Discontinued, For Line Patency: Peripheral IV = 5 mL; Midline or Central Line = 10 mL/lumen. If following IV push medication, administer flush at same rate as the IV push. Flush volume is determined by type of infusion therapy being given. For non-viscous solutions use: Peripheral IV = 5 mL Midline or Central Line = 10 mL/lumen For viscous solutions (i.e. blood components, parenteral nutrition, contrast media, or after obtaining blood sample) use: Peripheral IV = 10 mL Midline or Central Line = 20 mL/lumen, PACU only 2100 (Due) Continuous Medication Order 11/13/2024 11/14/2024 11/15/2024 lactated ringers infusion IntraVENous, at 100 mL/hr, CONTINUOUS, Starting on Thu11/15/24 at 1530 1511 (New Bag - Prov ider: Corazon Veloz RN) PRN Medication Order 11/13/2024 11/14/2024 11/15/2024 0.9 % sodium chloride infusion IntraVENous, at 5-250 mL/hr, PRN, if patient receiving piggyback infusions and maintenance fluids are not ordered, Starting on Thu11/15/24 at 1719, For piggyback infusion, administer at same rate as piggyback for a total of 25 mL. Enter 25 mL into dose field and piggyback rate into rate field of order. If piggyback is infusing at a rate less than 100 mL/hr, enter 25 mL into dose field and 100 mL/hr into rate field of order., PACU only fentaNYL (SUBLIMAZE) injection 25 mcg 25 mcg, IntraVENous, EVERY 5 MIN PRN, 2 doses, Starting on Thu11/15/24 at 1719, Until Discontinued, Pain Moderate (4-6) OR per patient request for pain score (7-10), For Phase I. If Phase II oral narcotics have been administered in the last 60 minutes, do not administer IV narcotics unless specifically approved by provider., PACU only fentaNYL (SUBLIMAZE) injection 50 mcg 50 mcg, IntraVENous, EVERY 5 MIN PRN, 2 doses, Starting on Thu11/15/24 at 171, Until Discontinued, Pain Severe (7-10), For Phase I. If Phase II oral narcotics have been administered in the last 60 minutes, do not administer IV narcotics unless specifically approved by provider., PACU only lidocaine (XYLOCAINE) 2 % uro-jet (CANCELED) PRN, Starting on Thu11/15/24 at 1703, Intra-op 1703 (Given - Provid er: Martir Stovall MD) naloxone 0.4 mg in 10 mL sodium chloride syringe IntraVENous, PRN, Opioid Reversal, Starting on Thu11/15/24 at 171, PRN if respiratory rate is less than 6/min and patient is difficult to arouse then notify physician STAT. Mix 9 mL of sodium chloride 0.9% with 0.4 mg (1 mL) of naloxone (NARCAN) in 10 mL syringe. (Note: dilution is 0.04 mg/mL) Give 0.08 mg (2 mL of special dilution), slow IV push, repeat up to 0.4 mg (10 mL) or until patient is responsive to physical stimulation and respiratory rate is equal to or greater than 6 breaths/min. Continue to observe, if no response within 3 minutes of administration of 0.4 mg (10 mL) total, repeat dose (0.4 mg as administered previously). Concentration 0.04 mg/mL, PACU only ondansetron (ZOFRAN) injection 4 mg (COMPLETED) 4 mg, IntraVENous, ONCE PRN, 1 dose, Starting on Thu11/15/24 at 1719, Until Thu11/15/24 at 1802, Nausea, Initial antiemetic therapy., PACU only 180 (Given - Provid er: Deshawn Saleem RN) oxyCODONE (ROXICODONE) immediate release tablet 5 mg (COMPLETED) 5 mg, Oral, ONCE PRN, 1 dose, Starting on Thu11/15/24 at 1719, Until Thu11/15/24 at 1756, Pain Moderate (4-6) OR per patient request for pain score (7-10), Pain Severe (7-10), PHASE II, PACU only 175 (Given - Provid er: Deshawn Saleem RN) sodium chloride flush 0.9 % injection 5-40 mL 5-40 mL, IntraVENous, PRN, Starting on Thu11/15/24 at 1719, Until Discontinued, Line Care, After every IV line use, For Line Patency: Peripheral IV = 5 mL; Midline or Central Line = 10 mL/lumen. If following IV push medication, administer flush at same rate as the IV push. Flush volume is determined by type of infusion therapy being given. For non-viscous solutions use: Peripheral IV = 5 mL Midline or Central Line = 10 mL/lumen For viscous solutions (i.e. blood components, parenteral nutrition, contrast media, or after obtaining blood sample) use: Peripheral IV = 10 mL Midline or Central Line = 20 mL/lumen, PACU only Scheduled Medication Order 11/15/2024 11/16/2024 11/17/2024 ketorolac (TORADOL) injection 15 mg (COMPLETED) 15 mg, IntraVENous, ONCE, 1 dose, On Solange 11/17/24 at 2114 2140 (Given - Provid er: Peg Heller RN) ondansetron (ZOFRAN) injection 4 mg (COMPLETED) 4 mg, IntraVENous, ONCE, 1 dose, On Solange 11/17/24 at 2114 2140 (Given - Provid er: Peg Heller RN) sodium chloride 0.9 % bolus 1,000 mL (COMPLETED) 1,000 mL (9.59 mL/kg), IntraVENous, at 983.6 mL/hr, Administer over 61 Minutes, ONCE, On Solange 11/17/24 at 2114, For 1 dose 2139 (New Bag - Prov ider: Peg Heller RN)2301 (Stopped - Provider: Peg Heller RN) PRN Medication Order 11/15/2024 11/16/2024 11/17/2024 iopamidol (ISOVUE-370) 76 % injection 75 mL (COMPLETED) 75 mL, IntraVENous, IMG ONCE PRN, 1 dose, Starting on Solange 11/17/24 at 2205, Until Thu11/17/24 at 220, Other 2205 (Given - Provid er: Juan M Romano) Care Teams (unrecognized sec tion and content) Mica Plate Layer Hand Relationship Specialty Start Date End Date Rumschlag, Shawna, DO [address] [place] [address] PCP - General Family Medicine 10/12/21 Mica Plate Layer Hand Relationship Specialty Start Date End Date Rumschlag, Shawna, DO [address] [place] [address] PCP - General Family Medicine 10/12/21 Mica Plate Layer Hand Relationship Specialty Start Date End Date Rumschlag, Shawna, DO [address] [place] [address] PCP - General Family Medicine 10/12/21 Mica Plate Layer Hand Relationship Specialty Start Date End Date Rumschlag, Shawna, DO [address] [place] [address] PCP - General Family Medicine 10/12/21 Team Status: Active Member Role Status Dates NON STAFF Primary Care Provider Active Team Status: Active Member Role Status Dates Yo Blank MD Attending Provider Active S tart: March 05, 2023 Shawna Bismarkviviane , DO Primary Care Provider Active Start: March 05, 2023 Team Status: Active Member Role Status Dates Yo Blank MD Attending Provider, Other Provider Active Start: March 18, 2023 NON STAFF Primary Care Provider Active Start: March 18, 2023 Mica Plate Layer Hand Relationship Specialty Start Date End Date Rumschlag, Shawna, DO [address] [place] [address] PCP - General Family Medicine 10/12/21 Mica Plate Layer Hand Relationship Specialty Start Date End Date Rumschlag, Shawna, DO [address] [place] [address] PCP - General Family Medicine 10/12/21 Team Status: Active Member Role Status Dates Luz Maria Driver [facility] Primary Care Provider Active Team Status: Inactive Member Role Status Dates Gayathri Adams APRN Attending Provider Active Start: May 21, 2023 End: May 21, 2023 Luz Maria Driver [facility] Primary Care Provider Active Start: May 21, 2023 End: May 21, 2023 Team Status: Inactive Member Role Status Dates Jan Garg APRN Attending Provider Active Start: May 21, 2023 End: May 21, 2023 Luz Maria Driver , [facility] Primary Care Provider Active Start: May 21, 2023 End: May 21, 2023 Mica Plate Layer Hand Relationship Specialty Start Date End Date Shawna Mcfadden DO [address] [place], [place] [id number] PCP - General [facility] 10/12/21 Mica Plate Layer Hand Relationship Specialty Start Date End Date Shawna Mcfadden DO [address] [place] [address] PCP - General Family [facility] 10/12/21 Mica Plate Layer Hand Relationship Specialty Start Date End Date Davie Mcneal APRN - FIRST DYER [address] [place] [address] PCP - General 11/11/23 Mica Plate Layer Hand Relationship Specialty Start Date End Date Davie Mcneal APRN - FIRST DYER [address] [place] [address] PCP - General 11/11/23 Mica Plate Layer Hand Relationship Specialty Start Date End Date Davie Mcneal APRN - FIRST DYER [facility] [place] [address] PCP - General 11/11/23 Mica Plate Layer Hand Relationship Specialty Start Date End Date Davie Mcneal APRN - FIRST DYER [address] [facility] [place] [address] PCP - General 11/11/23 Mica Plate Layer Hand Relationship Specialty Start Date End Date Vicky Mcfaddenjack [address] [place] [address] PCP - General Family Medicine 04/14/22 Key Andrea NP [address] [facility] [place] [address] Referring Physician Family Medicine 08/13/23 Mica Plate Layer Hand Relationship Specialty Start Date End Date Key Andrea NP [address] [place] [address] Referring Physician Family Medicine 08/13/23 Mica Plate Layer Hand Relationship Specialty Start Date End Date Key Andrea NP [address] [facility] [place] [address] Referring Physician Family Medicine 08/13/23 Mica Plate Layer Hand Relationship Specialty Start Date End Date Key Andrea NP [address] [facility] [place] [address] Referring Physician Family Medicine 08/13/23 Mica Plate Layer Hand Relationship Specialty Start Date End Date Vicyk McfaddentyDO [address] [place] [address] PCP - General Family Medicine 04/14/22 Key Andrea NP [address] [facility] [place] [address] Referring Physician Family Medicine 08/13/23 Team Status: Inactive Member Role Status Dates Luz Maria Driver [facility]- Primary Care Provider Active Start: January 21, 2024 End: January 21, 2024 MELE Best Attending Provider Active Start: January 21, 2024 End: January 21, 2024 Team Status: Inactive Member Role Status Dates Luz Maria Driver , [facility] Primary Care Provider Active Start: March 09, 2024 End: March 09, 2024 Mio Marroquin DO Attending Provider Active S tart: March 09, 2024 End: March 09, 2024 Mica Plate Layer Hand Relationship Specialty Start Date End Date Shawna Mcfadden DO [address] [place] [address] PCP - General Family Medicine 04/14/22 Key Andrea NP [address] [place] [address] Referring Physician Family Medicine 08/13/23 Mica Plate Layer Hand Relationship Specialty Start Date End Date Shawna Mcfadden DO [address] [place] [address] PCP - General Family Medicine 04/14/22 Key Andrea NP [address] [place] [address] Referring Physician Family Medicine 08/13/23 Mica Plate Layer Hand Relationship Specialty Start Date End Date Shawna Mcfadden DO [address] [place] [address] PCP - General Family Medicine 05/02/22 Mica Plate Layer Hand Relationship Specialty Start Date End Date Shawna Mcfadden DO [address] [place] [address] PCP - General Family Medicine 05/02/22 Mica Plate Layer Hand Relationship Specialty Start Date End Date Shawna Mcfadden DO [address] [place] [address] PCP - General Family Medicine 04/14/22 Key Andrea NP [address] [place] [address] Referring Physician Family Medicine 08/13/23 Mica Plate Layer Hand Relationship Specialty Start Date End Date Shawna Mcfadden DO [address] [place] [address] PCP - General Family Medicine 05/02/22 Mica Plate Layer Hand Relationship Specialty Start Date End Date Shawna Mcfadden DO [address] [place] [address] PCP - General Family Medicine 05/02/22 Mica Plate Layer Hand Relationship Specialty Start Date End Date Shawna Mcfadden DO [address] [place] [address] PCP - General Family Medicine 05/02/22 Mica Plate Layer Hand Relationship Specialty Start Date End Date Shawna Mcfadden DO [address] [place] [address] PCP - General Family Medicine 05/02/22 Mica Plate Layer Hand Relationship Specialty Start Date End Date Shawna Mcfadden DO [address] [place] [address] PCP - General Family Medicine 05/02/22 Mica Plate Layer Hand Relationship Specialty Start Date End Date Shawna Mcfadden DO [address] [place] [address] PCP - General Family Medicine 05/02/22 Mica Plate Layer Hand Relationship Specialty Start Date End Date Shawna Mcfadden DO [address] [place] [address] PCP - General Family Medicine 05/02/22 Mica Plate Layer Hand Relationship Specialty Start Date End Date [facility] [address] [place] PCP - General Family Medicine 10/05/23 Mica Plate Layer Hand Relationship Specialty Start Date End Date Shawna Mcfadden DO [address] [place] [address] PCP - General Family Medicine 04/14/22 Key Andrea, FIRST D[employer]ER [address] [place] [address] Referring Physician Family Medicine 08/13/23 Mica Plate Layer Hand Relationship Specialty Start Date End Date Shawna Mcfadden, [address] [place] [address] PCP - General Family Medicine 04/14/22 Key Andrea, FIRST DYER [address] [place] [address] Referring Physician Family Medicine 08/13/23 Mica Plate Layer Hand Relationship Specialty Start Date End Date Shawna Mcfadden DO [address] [place] [address] PCP - General Family Medicine 04/14/22 Key Andrea, FIRST DYER [address] [facility] [place] [address] Referring Physician Family Medicine 08/13/23 Mica Plate Layer Hand Relationship Specialty Start Date End Date Shawna Mcfadden DO [address] [facility] [place] [address] PCP - General Family Medicine 04/14/22 eKy Andrea NP [address] [place] [address] Referring Physician Family Medicine 08/13/23 Sasha Santos DO [address] [place] [address] Referring Physician Neurology 05/10/24 Mica Plate Layer Hand Relationship Specialty Start Date End Date Shawna Mcfadden DO [address] [facility] [place] [address] PCP - General Family Medicine 04/14/22 Key Andrea, JO ANN [address] [place] [address] Referring Physician Family Medicine 08/13/23 Sasha Santos DO [address] [place] [address] Referring Physician Neurology 05/10/24 Team Status: Active Member Role Status Dates Luz Maria Driver [facility] Primary Care Provider Active Start: April 04, 2024 Matt Flores DO Attending Provider Active Sta rt: April 04, 2024 Team Status: Inactive Member Role Status Dates Luz Maria Driver [facility] Primary Care Provider Active Start: June 02, 2024 End: June 02, 2024 Jan Garg APRN Attending Provider Active Start: June 02, 2024 End: June 02, 2024 Mica Plate Layer Hand Relationship Specialty Start Date End Date Shawna Mcfadden DO [address] [place], [place] [address] PCP - General Family Medicine 04/14/22 Key Andrea, FIRST DYER [address] [place] [address] Referring Physician Family Medicine 08/13/23 Sasha Santos DO [address] [place] [address] Referring Physician Neurology 05/10/24 Mica Plate Layer Hand Relationship Specialty Start Date End Date Shawna Mcfadden DO [address] [place], [place] [address] PCP - General Family Medicine 04/14/22 Key Andrea NP [address] [place] [address] Referring Physician Family Medicine 08/13/23 Sasha Santos DO [address] [place] [address] Referring Physician Neurology 05/10/24 Mica Plate Layer Hand Relationship Specialty Start Date End Date Davie Mcneal APRN - FIRST DYER [address] [place] [address] PCP - General 11/11/23 Team Status: Active Member Role Status Dates Davie Mcneal APRN FIRST DYERMisael Primary Care Provide r Active Team Status: Inactive Member Role Status Dates Shira Cardoso DO Attending Provider Active S tart: July 27, 2024 End: July 27, 2024 Davie Mcneal APRN [facility]-C Primary Care Provide r Active Start: July 27, 2024 End: July 27, 2024 Mica Plate Layer Hand Relationship Specialty Start Date End Date Shawna Mcfadden DO [address] [place] [address] PCP - General Family Medicine 04/14/22 Key Andrea, JO ANN [address] [facility] [place] [address] Referring Physician Family Medicine 08/13/23 Sasha Santos DO [address] [place] [address] Referring Physician Neurology 05/10/24 Mica Plate Layer Hand Relationship Specialty Start Date End Date [facility] [address] [place] [address] PCP - General Family Medicine 04/14/22 Key Andrea NP [address] [facility] [place] [address] Referring Physician Family Medicine 08/13/23 Sasha Santos DO [address] [place] [address] Referring Physician Neurology 05/10/24 Mica Plate Layer Hand Relationship Specialty Start Date End Date Shawna Mcfadden DO [address] [place] [address] PCP - General Family Medicine 04/14/22 Key Andrea, FIRST DYER [address] [facility] [place] [address] Referring Physician Family Medicine 08/13/23 Sasha Santos DO [address] [place] [address] Referring Physician Neurology 05/10/24 Team Status: Inactive Member Role Status Dates Jan Garg APRN Attending Provider Active Start: August 08, 2024 End: August 08, 2024 Davie Mcneal APRN [facility] Primary Care Provide r Active Start: August 08, 2024 End: August 08, 2024 Mica Plate Layer Hand Relationship Specialty Start Date End Date Shawna Mcfadden DO [address] [place] [address] PCP - General Family Medicine 04/14/22 Key Andrea, JO ANN [address] [place] [address] Referring Physician Family Medicine 08/13/23 Sasha Santos DO [address] [place], [place] [address] Referring Physician Neurology 05/10/24 Team Status: Inactive Member Role Status Dates Shira Cardoso DO Attending Provider Active S tart: August 10, 2024 End: August 10, 2024 Davie Mcneal APRN [facility]-C Primary Care Provide r Active Start: August 10, 2024 End: August 10, 2024 Mica Plate Layer Hand Relationship Specialty Start Date End Date Shawna Mcfadden DO [address] [place] [place] [address] PCP - General Family Medicine 04/14/22 Key Andrea, JO ANN [address] [place] [address] Referring Physician Family Medicine 08/13/23 Sasha Santos DO [address] [place], [place] [id number] Referring Physician Neurology 05/10/24 Shira Cardoso DO [address] [place] [address] Otolaryngology 08/19/24 Mica Plate Layer Hand Relationship Specialty Start Date End Date BismarkShawna pan [address] [place] [address] PCP - General Family Medicine 04/14/22 Key Andrea, FIRST DYER [address] [place] [address] Referring Physician Family Medicine 08/13/23 Sasha Santos DO [address] [place] [address] Referring Physician Neurology 05/10/24 Shira Cardoso DO [address] [place] [address] Otolaryngology 08/19/24 Mica Plate Layer Hand Relationship Specialty Start Date End Date Jaquelinehaider ShawnaDO [address] [place] [address] PCP - General Family Medicine 04/14/22 Key Andrea, FIRST DYER [address] [place] [address] Referring Physician Family Medicine 08/13/23 Sasha Santos DO [address] [place] [address] Referring Physician Neurology 05/10/24 Shira Cardoso DO [address] [place] [address] Otolaryngology 08/19/24 Mica Plate Layer Hand Relationship Specialty Start Date End Date [facility] [address] [place] PCP - General Family Medicine 10/05/23 Mica Plate Layer Hand Relationship Specialty Start Date End Date RetaShawna de paz DO [address] [place] [address] PCP - General Family Medicine 04/14/22 Key Andrea, FIRST DYER [address] [place], [place] [address] Referring Physician Family Medicine 08/13/23 Sasha Santos DO [address] [place] [address] Referring Physician Neurology 05/10/24 Shira Cardoso DO [address] [place] [address] [place] [address] Otolaryngology 08/19/24 Mica Plate Layer Hand Relationship Specialty Start Date End Date BismarkShawna pan [address] [place] [address] PCP - General Family Medicine 04/14/22 Key Andrea, FIRST DYER [address] [place] [address] Referring Physician Family Medicine 08/13/23 Sasha Santos DO [address] [place] [address] Referring Physician Neurology 05/10/24 Shira Cardoso DO [address] [place] [address] Otolaryngology 08/19/24 Mica Plate Layer Hand Relationship Specialty Start Date End Date Jaquelinehaider Shawna [address] [place] [address] PCP - General Family Medicine 04/14/22 Key Andrea [facility]ER [address] [place] [address] Referring Physician Family Medicine 08/13/23 Sasha Santos DO [address] [place] [address] Referring Physician Neurology 05/10/24 Shira Cardoso DO [address] [place] [address] Otolaryngology 08/19/24 Team Status: Inactive Member Role Status Dates Davie Mcneal APRN [facility]-C Primary Care Provide r Active Start: September 21, 2024 End: September 21, 2024 Shira Cardoso DO Attending Provider Active S tart: September 21, 2024 End: September 21, 2024 Mica Plate Layer Hand Relationship Specialty Start Date End Date Vicky McfaddentyDO [address] [place] [address] PCP - General Family Medicine 04/14/22 Key Andrea, JO ANN [address] [place] [address] Referring Physician Family Medicine 08/13/23 Sasha Santos DO [address] [place] [address] Referring Physician Neurology 05/10/24 Shira Cardoso DO [address] [place] [address] Otolaryngology 08/19/24 Mica Plate Layer Hand Relationship Specialty Start Date End Date Shawna Mcfadden DO [address] [place] [address] PCP - General Family Medicine 04/14/22 Key Andrea NP [address] [place] [address] Referring Physician Family Medicine 08/13/23 Sasha Santos DO [address] [place] [address] Referring Physician Neurology 05/10/24 Shira Cardoso DO [address] [place] [address] Otolaryngology 08/19/24 Team Status: Inactive Member Role Status Dates Davie Mcneal APRN [facility]-C Primary Care Provider Active Start: November 032024 End: November 03, 2024 Sasha Santos DO Attending Provider Active Sta rt: November 03, 2024 End: November 03, 2024 Mica Plate Layer Hand Relationship Specialty Start Date End Date Davie Mcneal APRN - FIRST DYER [address] [facility] [place] [address] PCP - General 11/11/23 Mica Plate Layer Hand Relationship Specialty Start Date End Date [facility], [facility] [address] [place] PCP - General Family Medicine 10/05/23 Mica Plate Layer Hand Relationship Specialty Start Date End Date Vicky McfaddentyDO [address] [place], [place] [address] PCP - General Family Medicine 04/14/22 Key Andrea FIRST D[employer]ER [address] [place] [address] Referring Physician Family Medicine 08/13/23 Sasha Santos DO [address] [place], [place] [address] Referring Physician Neurology 05/10/24 Shira Cardoso DO [address] [facility] [place] [address] Otolaryngology 08/19/24 Mica Plate Layer Hand Relationship Specialty Start Date End Date Davie Mcneal APRN - NP [address] [facility] [place] [address] PCP - General 11/11/23 Mica Plate Layer Hand Relationship Specialty Start Date End Date Davie Mcneal APRN - NP [address] [facility] [place] [address] PCP - General 11/11/23 Mica Plate Layer Hand Relationship Specialty Start Date End Date [facility], [facility] [address] [place] [place] PCP - General Family Medicine 10/05/23 Mica Plate Layer Hand Relationship Specialty Start Date End Date Davie Mcneal APRN - NP [address] [facility] [place] [address] PCP - General 11/11/23 Mica Plate Layer Hand Relationship Specialty Start Date End Date Shawna Mcfadden DO [address] [place] [address] PCP - General Family Medicine 04/14/22 Key Andrea NP [address] [place] [address] Referring Physician Family Medicine 08/13/23 Sasha Santos DO [address] [place] [address] Referring Physician Neurology 05/10/24 Shira Cardoso DO [address] [place] [address] Otolaryngology 08/19/24 Mica Plate Layer Hand Relationship Specialty Start Date End Date Davie Mcneal APRN - JO ANN [address] [place] [address] PCP - General 11/11/23 Team Status: Inactive Member Role Status Dates Davie Mcneal APRN [facility]-C Primary Care Provider Active Start: October 312024 End: November 17, 2024 Jan Garg APRN Attending Provider Active Start: November 17, 2024 End: November 17, 2024 Mica Plate Layer Hand Relationship Specialty Start Date End Date Davie Mcneal APRN - JO ANN [address] [facility] [place] [address] PCP - General 11/11/23 Goals (unrecognized section [...] BE BASED ON THE PRIMARY CLINICAL RECORDS. [facility]. provides no warranty or guarantee of the accuracy or completeness of information in this document.
== END 2024-12-01 13:15 | disposition home or self-care (01) ==
LOC: PM 13:14
PROVIDERS: PCP Nurse Practitioner Family; Visit Provider Nurse Practitioner
DX: M47.812 Spondylosis without myelopathy or radiculopathy, cervical region (principal); M54.12 Radiculopathy, cervical region
CPT/HCPCS: G0463

== ENCOUNTER 2024-12-15 10:02 | Outpatient (OUT) | payer OTHER, SELFPAY ==
--- OUTSIDE RECORDS SUMMARY | 2024-12-01 11:00 | XMS_ITS | Encounter Summary ---
Author Organization [facility] Address [address] [facility] [place] [address] Care Team Providers Care Director Of Community Services Name Role Phone Key Andrea MAILROOM COORDINATOR Unavailable Shawna Dudley DO Primary Care Provider [phone] Sasha Santos DO Unavailable [phone] Mendez Ortiz DO Unavailable [phone] Reason for Visit * Reason Comments Diabetes Follow-up Encounter Details Date Type Department Care Team (Late st Contact Info) Description 12/01/2024 11:00 AM EDT Office Visit [facility] [address] [place] [address] Cleo Zambrano MD [address] [place], [place] [id number] Type 2 diabetes mellitus with hyperglycemia, without [...] 10:57 AM EDT documented in this encounter Progress Notes * Cleo Zambrano MD - 12/01/2024 11:00 AM EDT For broken ankle UR Karma Banegas is a 44 y.o. female No ref. provider found presents with chief complaint of Diabetes and Follow-up HPI: History of Present Illness The patient [...] yet. HPI: 06/2020 New patient sent from [facility] for uncontrolled diabetes. A1c of [...] (vitamin B complex) tablet 1 tablet, Daily Calcium Carbonate-Vit D-Min (Calcium 1200) 3659-8322 MG-UNIT chewable tablet 1,200 mg, Oral, Daily cholecalciferol (VITAMIN D-3) 2,000 Units, Daily ciclopirox (Loprox) 0.77 % cream APPLY TO THE AFFECTED AREA(S) TWICE DAILY cyclobenzaprine (FLEXERIL) 10 mg, 3 times daily PRN diclofenac (VOLTAREN) 75 mg, 2 times daily PRN docusate sodium (COLACE) 300 mg, 3 times daily DULoxetine (CYMBALTA) 60 mg, 2 times daily empagliflozin (JARDIANCE) 25 mg, Oral, Daily ferrous sulfate 28 mg, Oral, Daily with breakfast fexofenadine (JONATHAN) 180 mg, Daily FLUoxetine (PROZAC) 60 mg, [...] 500 mg, 2 times daily with meals Ozempic (0.25 or 0.5 MG/DOSE) 0.5 mg, Subcutaneous, Weekly pantoprazole (PROTONIX) 40 mg, Daily before breakfast [...] Anemia Attention deficit hyperactivity disorder 04/27/2024 Bipolar 1 disorder, mixed, moderate (HCC) 11/11/2024 Bipolar disorder (HCC) Body mass index (BMI) [...] (HCC) Umbilical hernia 2016 Vitamin D deficiency Past Surgical History: Procedure Laterality Date ANKLE SURGERY BACK SURGERY CHOLECYSTECTOMY 08/2016 Laparoscopic EGD 10/2016 with Bx NASAL SINUS SURGERY OTHER SURGICAL HISTORY 05/31/2024 DISE OTHER SURGICAL HISTORY 08/10/2024 Inspire OTHER SURGICAL HISTORY 09/21/2024 Revision Inspire SHOULDER SURGERY Right TONSILLECTOMY UMBILICAL HERNIA [...] 04/07/2024 Lab Results Component Value Date GLU 118 (H) 11/17/2024 GLU 83 11/15/2024 GLU 83 11/15/2024 08/19/2024 1:17 PM 09/01/2024 10:52 AM 09/20/2024 1:04 PM 09/29/2024 10:19 AM 11/02/2024 1:51 PM 11/11/2024 2:02 PM 12/01/2024 10:57 AM Vitals BMI 40.74 kg/m2 40.74 kg/m2 40.74 kg/m2 40.74 kg/m2 40.74 kg/m2 40.74 kg/m2 40.21 kg/m2 BSA (m2) 2.15 m2 2.15 m2 2.15 m2 2.15 m2 2.15 m2 2.15 m2 2.14 m2 Systolic 106 118 Diastolic 68 72 Heart Rate 100 SpO2 99 % Resp 20 Height (in) 5' 3 5' 3 5' 3 5' 3 5' 3 5' 3 Weight (lb) 230 230 230 230 230 230 227 Visit Report Report Report Report Report Report Report Report ASSESSMENT AND PLAN: Assessment/Plan Diagnoses and all orders for this visit: 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, unspecified whether termite exterminator insulin use - POCT glycosylated hemoglobin (Hb [...] all her medications at the same time. No follow-ups on file. documented in this encounter Plan of Treatment Upcoming Encounters Date Type Department Care Team (Late st Contact Info) Description 04/06/2025 10:40 AM EST Office Visit [facility] [address] [place] [address] Cleo Zambrano MD [address] [place] [address] 05/31/2025 1:00 PM EDT Office Visit [facility] [address] [address] [place] [address] Roel Garber DO [address] [place] [address] 08/18/2025 2:00 PM EDT Office Visit [facility] [address] [place] [place] [phone] Mendez Ortiz DO [address] [place] [address] Scheduled Orders Name Type Priority Associated Diagnoses Orde r Schedule C-peptide Lab Routine Type 2 diabetes mellitus with hyperglycemia, without long-term current use of insulin (HCC) Expected: 12/05/2024 (Approximate), Expires: 12/05/2025 Vitamin D 25 hydroxy Total Lab Routine Type 2 diabetes mellitus with hyperglycemia, without long-term current use of insulin (HCC) Expected: 12/05/2024 (Approximate), Expires: 12/05/2025 Microalbumin / creatinine urine ratio Lab Routine Type 2 diabetes mellitus with hyperglycemia, without long-term current use of insulin (HCC) Expected: 12/05/2024 (Approximate), Expires: 12/05/2025 Lipid panel Lab Routine Type 2 diabetes mellitus with hyperglycemia, without long-term current use of insulin (HCC) Expected: 12/05/2024 (Approximate), Expires: 12/05/2025 Renal function panel Lab Routine Type 2 diabetes mellitus with hyperglycemia, without long-term current use of insulin (HCC) Expected: 12/05/2024 (Approximate), Expires: 12/05/2025 documented as of this encounter Procedures Procedure [...] specimen / Unknown 12/01/2024 12:15 PM EDT us Cleo Zambrano MD POINT OF CARE TEST ENTER/EDIT ORDERABLES Final Result * (ABNORMAL) POCT glucose manually resulted (12/01/2024 12:12 PM EDT) Glucose Blood, POC 131 mg/dL Blood Capillary blood specimen / Unknown 12/01/2024 12:12 PM EDT us Cleo Zambrano MD POINT OF [...] unspecified documented in this encounter Care Teams Director Of Community Services Relationship Specialty Start Date End Date Shawna Dudley DO [address] [place] [address] PCP - General Family Medicine 04/14/22 Key Andrea NP [address] [place] [address] Referring Physician Family Medicine 08/13/23 Sasha Santos DO [address] [place] [address] Referring Physician Neurology 05/10/24 Mendez Ortiz DO [address] [place] [address] Otolaryngology 08/19/24 documented as of this encounter
--- OUTSIDE RECORDS SUMMARY | 2024-12-15 10:07 | XMS_ITS | Encounter Summary ---
Author Organization [facility] Address [address] [place] [address] Care Team Providers Care Environmental Studies Faculty Member Name Role Phone Zully Key HEAD GAUGE UNIT OPERATOR Unavailable Shawna Dudley DO Primary Care Provider [phone] Sasha Santos DO Unavailable [phone] Mendez Ortiz DO Unavailable Encounter Details Date Type Department Care Team (Late Contact Info) Description 06/27/2024 Abstract [facility] [place] [facility] [address] [place] [address] Roel Garber DO [address] [place], [place] [id number] Social History Tobacco Use Types Packs/Day Years [...] Upcoming Encounters Date Type Department Care Team ([facility] Contact Info) Description 04/06/2025 10:40 AM EST Office Visit [facility] [address] [place] [id number] Cleo Zambrano MD [address] [place] [address] 05/31/2025 1:00 PM EDT Office Visit [facility] [address] [place] [phone] Roel Garber DO [address] [place] [address] 08/18/2025 2:00 PM EDT Office Visit [facility] [address] [place] [address] Mendez Ortiz DO [address] [place] [address] documented as of this encounter Visit Diagnoses Not on filedocumented in this encounter Care Teams Environmental Studies Faculty Member Relationship Specialty Start Date End Date Shawna Dudley DO [address] [place], [place] [address] PCP - General Family Medicine 04/14/22 Kye Andrea NP [address] [place] [address] Referring Physician Family Medicine 08/13/23 Sasha Santos DO [address] [place] [address] Referring Physician Neurology 05/10/24 Mendez Ortiz DO [address] [place] [address] Otolaryngology 08/19/24 documented as of this encounter
--- OUTSIDE RECORDS SUMMARY | 2024-12-15 10:08 | XMS_ITS | Clinical Summary ---
Author Organization [facility] Address [address] [place] [address] Care Team Providers Care Milling Machine Set Up Operator Name Role Phone Unavailable Primary Care Provider Unavailabl e Allergies Active Allergy Reactions Criticality Noted Date Comments Citalopram Hydrobromide Other: See Comments palpitations Cephalexin Hives,Other: See Comments High 07/14/2013 Shortness of breath, throat felt tight Metformin Unknown 04/20/2023 Other Reaction(s): Other (See Comments), Unknown Reaction Hypoglycemia Hypoglycemia Medications ACIDOPHILUS/BUL GARICUS (FLORANEX ORAL)Indication s:Globus sensation [...] mcg/actuation nasal sprayIndication s:Globus sensation Use 1 Morrow in each nostril as needed. Active PYRIDOXINE [...] route one time only. Left arm Active ascorbic acid, vitamin C, (VITAMIN C) 500 mg tablet Take 500 mg by mouth two times a day. Active calcium carbonate-vitam in D3 600 mg-12.5 mcg (500 unit) cap Take 2 capsules by mouth once daily. 5 Active cholecalciferol (VITAMIN D3) 5,000 unit tab Take 1 tablet by mouth once daily. 5 Active lamoTRIgine (LAMICTAL) 200 mg tablet Take 200 mg by mouth. 9 Active LINZESS 290 mcg capsule Take 290 mcg by mouth. Active lisdexamfetamin e (VYVANSE) 70 mg capsule Take 70 mg by mouth every morning. 2 Active metoprolol succinate ER (TOPROL XL) 25 mg 24 hr tablet Take 25 mg by mouth. 5 09/16/19 26 Active lurasidone (LATUDA) 120 mg tablet Take 120 mg by mouth. 1 Active rosuvastatin (CRESTOR) 10 mg tablet Take 10 mg by mouth. Active MOUNJARO 2.5 mg/0.5 mL pen injector Inject 2.5 mg subcutaneously. 5 Active VITAMIN B COMPLEX PO Take 1 tablet by mouth once daily. 0 Active empagliflozin (JARDIANCE) 25 mg tablet Take 25 mg by mouth once daily. 5 Active docusate sodium (COLACE) 100 mg capsule Take 300 mg by mouth once daily. 3 Active diclofenac, EC, (VOLTAREN) 75 mg EC tablet Take 75 mg by mouth. 4 Active diclofenac (VOLTAREN) 1 % topical gel APPLY 2 (TWO) grams TO THE AFFECTED AREA(S) FOUR TIMES DAILY NEEDED FOR PAIN 5 Active cyclobenzaprine (FLEXERIL) 10 mg tablet Take 10 mg by mouth. 4 Active montelukast (SINGULAIR) 10 mg tablet Take 10 mg by mouth every evening. Active Encounters Date Type Department Care Team Description 11/17/2024 1:40 PM EDT Office Visit Orthopaedic Surgery [facility] [address] [place] [address] Diego Kang MD Chronic pain of right ankle (Primary Dx) 11/17/2024 12:20 PM EDT - 11/17/2024 11:59 PM EDT Hospital Encounter Xray [facility] [address] [place] [address] Pain in joint involving ankle and foot, unspecified laterality [M25.579] Discharge Disposition: Home 11/15/2024 Orders Only Orthopaedics [address] [address] Diego Kang MD Pain in joint involving ankle and foot, unspecified laterality (Primary Dx) 10/26/2024 Orders Only [facility] [place] [address] [place] [address] Kait Barrientos, DPM Pain (Primary Dx) from Last 3 Months Social History Tobacco Use Types Packs/Day Years Used Date Smoking Tobacco: Never Alcohol Use Standard Drinks/Week Comments No 0 (1 standard drink = 0.6 oz pur e alcohol) Area Deprivation Index Answer Date Benjamin rded National Score (1-100), lower number is lower ri sk 93 11/15/2024 State Score (1-10), lower number is lower risk 9 11/15/2024 Data from: https://www.neighborhoodatlas.medicine.[facility].edu/. Last address used for calculation [address] 11/15/2024 Comments Unknown Sex and Gender Information Value [...] HIV Screening 1998 Hepatitis C Screening 1998 Cervical Cancer Screening 2001 HPV Vaccine (1 - 3-dose SCDM series) 09/25/2007 Mammogram Screening 03/16/2024 03/16/2023, Covid-19 Vaccine ( - 2024-04 6 season) 2024 02/07/2022, 12/26/2020, 06/09/2020, Additional history exists Influenza Vaccine (#1) 2024 , 12/22/2022, 12/23/2021, Additional history exists DTaP,Tdap,Td Vaccine (2 - Td or Tdap) 09/03/2031 09/02/2021, 09/02/2021 Hepatitis B Vaccine Completed 05/25/2023, 12/22/2022, 06/23/2022 Procedures Procedure Name Priority Date/Time Associated Diagnosis Comments XR ANKLE GENERAL 3V AP/LAT/OBL BILAT Routine 11/17/2024 12:44 PM EDT Pain in joint involving ankle and foot, unspecified laterality from Last 3 Months Results * XR ANKLE GENERAL 3V AP/LAT/OBL BILATERAL (11/17/2024 12:44 PM EDT) Anatomical Region Laterality Modality Ankle Other 11/17/2024 12:4 4 PM EDT Impressions 11/18/2024 12:09 PM EDT IMPRESSION: Moderate degenerative changes left ankle. Mild degenerative changes right ankle. Illuminator: PSCB Transcribe Date/Time: Nov 18 2024 12:03P Dictated by : MARC HAHN MD This examination was interpreted and the report reviewed and electronically signed by: MARC HAHN MD on Nov 18 2024 12:07PM EST Narrative 11/18/2024 12:09 PM EDT * * *Final Report* * * DATE OF EXAM: Nov 17 2024 12:44PM M2X 5553 - XR ANKLE 3V AP/LAT/OBL STELLA / PROCEDURE REASON: Pain in joint involving ankle and foot, unspecified laterality * * * * Physician Interpretation * * * * HISTORY: Pain in joint involving ankle and foot, unspecified laterality . Patient complains of bilateral ankle pain TECHNIQUE: XR ANKLE 3V AP/LAT/OBL STELLA COMPARISON: None RESULT: Moderate degenerative changes in the left ankle with joint space narrowing and small osteophytes. Remote healed left distal fibular fracture. Mild degenerative changes in the right ankle with small osteophytes. Corticated ossification at the right lateral malleolar tip compatible with remote trauma. No other significant abnormality. Procedure Note Provider, [facility] [place] - 11/18/2024 * * *Final Report* * * DATE OF EXAM: Nov 17 2024 12:44PM M2X 5553 - XR ANKLE 3V AP/LAT/OBL STELLA / PROCEDURE REASON: Pain in joint involving ankle and foot, unspecified laterality * * * * Physician Interpretation * * * * HISTORY: Pain in joint involving ankle and foot, unspecified laterality . Patient complains of bilateral ankle pain TECHNIQUE: XR ANKLE 3V AP/LAT/OBL STELLA COMPARISON: None RESULT: Moderate degenerative changes in the left ankle with joint space narrowing and small osteophytes. Remote healed left distal fibular fracture. Mild degenerative changes in the right ankle with small osteophytes. Corticated ossification at the right lateral malleolar tip compatible with remote trauma. No other significant abnormality. IMPRESSION IMPRESSION: Moderate degenerative changes left ankle. Mild degenerative changes right ankle. Illuminator: PSCB Transcribe Date/Time: Nov 18 2024 12:03P Dictated by : MARC HAHN MD This examination was interpreted and the report reviewed and electronically signed by: MARC HAHN MD on Nov 18 2024 12:07PM EST us Diego Kang MD RAD-PAMA Final Result from Last 3 Months Insurance [facility] MEDICAID
--- OUTSIDE RECORDS SUMMARY | 2024-12-15 10:08 | XMS_ITS | Encounter Summary ---
Author Organization [facility] Address [address] [place] [address] Care Team Providers Care Cna Caregiver Name Role Phone Key Andrea PIPE OR STEAM FITTER FURNACE INSTALLER Unavailable Shawna Dudley DO Primary Care Provider [phone] Sasha Santos DO Unavailable [phone] Mendez Ortiz DO Unavailable [phone] Encounter Details Date Type Department Care Team ([facility] Contact Info) Description 12/01/2024 Bamboo flowsheet [facility] [address] [place] [address] Cleo Zambrano MD [address], [address] [place] [address] Social History Tobacco Use Types [...] Upcoming Encounters Date Type Department Care Team ([facility] Contact Info) Description 04/06/2025 10:40 AM EST Office Visit [facility] [address] [place] [address] Cleo Zambrano MD [address] [place] [address] 05/31/2025 1:00 PM EDT Office Visit [facility] [address] [place] [address] Roel Garebr DO [address] [facility] [address] [place] [address] 08/18/2025 2:00 PM EDT Office Visit [facility] [address] [place] [address] Mendez Ortiz DO [address] [place] [address] documented as of this encounter Visit Diagnoses Not on filedocumented in this encounter Care Teams Cna Caregiver Relationship Specialty Start Date End Date Shawna Dudley DO [address] [place], [place] [id number] PCP - General Family Medicine 04/14/22 Key Andrea NP [address] [place] [address] Referring Physician Family Medicine 08/13/23 Sasha Santos DO [address] [place] [address] Referring Physician Neurology 05/10/24 Mendez Ortiz DO [address] [place] [address] Otolaryngology 08/19/24 documented as of this encounter
--- OUTSIDE RECORDS SUMMARY | 2024-12-15 10:08 | XMS_ITS | Clinical Summary ---
Author Organization [facility] Address [address] [place] [address] Care Team Providers Care Television Repairer Name Role Phone Loreto Mcneal Primary Care [...] (11/23/2024): Added automatically from request for surgery [id number] Lumbosacral spondylosis without myelopathy 07/22 Overview (11/23/2024): Added automatically from request for surgery [id number] Posttraumatic stress disorder 06/16/2018 Type 2 diabetes mellitus without complication Cervical disc displacement 09/21/2017 Acute cholecystitis 09/15/2016 Encounters Date Type Department Care Team Description 11/23/2024 11:00 AM EDT Office Visit [facility] [address] [place] [address] Gautam Lunsford MD Pre-op evaluation (Primary Dx); Precordial chest pain 11/23/2024 Orders Only [place] [address] [place] [address] Torie Jimenez MA Other chest pain (Primary Dx); Pre-op evaluation 09/15/2024 Telephone [facility] [address] [place] [address] Peyton Bloom MA from Last [...] Resu lt from Last 3 Months Insurance [facility] MEDICAID Care Teams Television Repairer Relationship Specialty Start Date End Date Loreto Mcneal Param KLINE PCP - General 03/30/24
--- OUTSIDE RECORDS SUMMARY | 2024-12-15 10:08 | XMS_ITS | Encounter Summary ---
Author Organization [facility] Address [address] [place] [address] Care Team Providers Care Armature Winder Name Role Phone Zully Key SANDWICH COUNTER ATTENDANT Unavailable Shawna Dudley DO Primary Care Provider [phone] Sasha Santos DO Unavailable [phone] Mendez Ortiz DO Unavailable [phone] Encounter Details Date Type Department Care Team (Late Contact Info) Description 06/01/2024 Abstract [facility] [place] [facility] [address] [facility] [place] [address] Roel Garber DO [address] [facility] [address] [place], [place] [id number] Social History Tobacco Use Types Packs/Day Years [...] Upcoming Encounters Date Type Department Care Team ([facility] Contact Info) Description 04/06/2025 10:40 AM EST Office Visit [facility] [address] [place] [phone] Cleo Zambrano MD [address] [place] [address] 05/31/2025 1:00 PM EDT Office Visit [facility] [address] [facility] [place] [address] Roel Garber DO [address] [facility] [place] [address] 08/18/2025 2:00 PM EDT Office Visit [facility] [address] [place] [address] Mendez Ortiz DO [address] [place] [address] documented as of this encounter Visit Diagnoses Not on filedocumented in this encounter Care Teams Armature Winder Relationship Specialty Start Date End Date Shawna Dudley DO [address] [place], [place] [phone] PCP - General Family Medicine 04/14/22 Key Andrea NP [address] [place] [address] Referring Physician Family Medicine 08/13/23 Sasha Santos DO [address] [place] [address] Referring Physician Neurology 05/10/24 Mendez Ortiz DO [address] [place] [address] Otolaryngology 08/19/24 documented as of this encounter
--- OUTSIDE RECORDS SUMMARY | 2024-12-15 10:08 | XMS_ITS | Encounter Summary ---
Author Organization [facility] Address [address] [place] [address] Care Team Providers Care Stenographic Court Reporter Name Role Phone Key Andrea HEALTH CARE LIAISON Unavailable Shawna Dudley DO Primary Care Provider [phone] Sasha Santos DO Unavailable [phone] Mendez Ortiz DO Unavailable [phone] Reason for Visit * Reason Comments Med Refill Encounter Details Date Type Department Care Team (Late st Contact Info) Description 05/19/2024 [facility] [address] [facility] [address] [place] [address] Archana Naylor, BALLAST INSPECTOR-ONLINE PROJECT MANAGER [address] [facility] [address] [place] [address] Rash and other nonspecific skin eruption Social [...] [facility] [address] [place] [address] Cleo Zambrano MD [address] [place] [address] 05/31/2025 1:00 PM EDT Office Visit [facility] [place] [facility] [address] [facility] [place] [address] Roel Garber DO [address] [facility] [address] [place], [place] [address] 08/18/2025 2:00 PM EDT Office Visit [facility] [address] [place] [address] Mendez Ortiz DO [address] [place] [address] documented as of this encounter Visit Diagnoses Diagnosis Rash and other nonspecific skin eruption documented in this encounter Care Teams Stenographic Court Reporter Relationship Specialty Start Date End Date Shawna Dudley DO [address] [place] [place] [address] PCP - General Family Medicine 04/14/22 Key Andrea NP [address] [place] [address] Referring Physician Family Medicine 08/13/23 Sasha Santos DO [address] [place], [place] [address] Referring Physician Neurology 05/10/24 Mendez Ortiz DO [address] [place] [address] Otolaryngology 08/19/24 documented as of this encounter
--- OUTSIDE RECORDS SUMMARY | 2024-12-15 10:08 | XMS_ITS | Encounter Summary ---
Author Organization [facility] Address [address] [place] [address] Care Team Providers Care Pillowcase Turner Name Role Phone Zully Key PLATFORM ARCHITECT Unavailable Shawna Dudley DO Primary Care Provider [phone] Sasha Santos DO Unavailable [phone] Mendez Ortiz DO Unavailable [phone] Encounter Details Date Type Department Care Team (Late st Contact Info) Description 06/07/2024 Abstract [facility] [place] [facility] [address] [place] [address] [place] [address] Bela Ribeiro LPN Social History [...] [facility] [address] [place] [address] Cleo Zambrano MD [address], [address] [place] [address] 05/31/2025 1:00 PM EDT Office Visit [facility]ON[facility] [address] [facility] [address] Roel Garber DO [address] [facility] [place] [address] 08/18/2025 2:00 PM EDT Office Visit [facility] [address] [place] [place] [address] Mendez Ortiz DO [address] [place] [place] [address] documented as of this encounter Visit Diagnoses Not on filedocumented in this encounter Care Teams Pillowcase Turner Relationship Specialty Start Date End Date Shawna Dudley DO [address] [place] [address] PCP - General Family Medicine 04/14/22 Key Andrea NP [address] [place] [address] Referring Physician Family Medicine 08/13/23 Sasha Santos DO [address] [place], [place] [address] Referring Physician Neurology 05/10/24 Mendez Ortiz DO [address] [place] [address] Otolaryngology 08/19/24 documented as of this encounter
--- OUTSIDE RECORDS SUMMARY | 2024-12-15 10:08 | XMS_ITS | Encounter Summary ---
Author Organization [facility] Address [address] [place] [address] Care Team Providers Care Substance Abuse Counselor Name Role Phone Key Andrea ADHESIVE BONDING MACHINE OPERATOR Unavailable Shawna Dudley DO Primary Care Provider [phone] Sasha Santos DO Unavailable [phone] Mendez Ortiz DO Unavailable [phone] Reason for Visit * Reason Onset Date Comments Med Refill 12/01/2024 Encounter Details Date Type Department Care Team (Late st Contact Info) Description 12/01/2024 Refill [facility] [address] [place] [address] Pilar Valdez LPN Type 2 diabetes mellitus [...] [facility] [address] [place] [address] Cleo Zambrano MD [address], [address] [place] [address] 05/31/2025 1:00 PM EDT Office Visit [facility] [place] [facility] [address] [facility] [place] [address] Roel Garber DO [address] [facility] [place] [address] 08/18/2025 2:00 PM EDT Office Visit [facility] [address] [place] [address] Mendez Ortiz DO [address] [place] [address] documented as of this encounter Visit Diagnoses Diagnosis Type 2 diabetes mellitus with hyperglycemia, without long-term current use of insulin (HCC) documented in this encounter Care Teams Substance Abuse Counselor Relationship Specialty Start Date End Date Shawna Dudley DO [address] [facility] [place] [address] PCP - General Family Medicine 04/14/22 Key Andrea NP [address] [place] [address] Referring Physician Family Medicine 08/13/23 Sasha Santos DO [address] [place] [address] Referring Physician Neurology 05/10/24 Mendez Ortiz DO [address] [place] [address] Otolaryngology 08/19/24 documented as of this encounter
--- OUTSIDE RECORDS SUMMARY | 2024-12-15 10:08 | XMS_ITS | Clinical Summary ---
Author Organization [facility] Address [address] [place] [address] Care Team Providers Care Lip Cutter And Scorer Name Role Phone Key Andrea SOUND CUTTER Unavailable Shawna Dudley DO Primary Care Provider [phone] Sasha Santos DO Unavailable [phone] Mendez Ortiz DO Unavailable [phone] Allergies Active Allergy Reactions Criticality Noted Date [...] Take 1 tablet by mouth Daily 12/27/19 23 Active lurasidone (Latuda) 120 MG tablet Take [...] Take 180 mg by mouth Daily 02/25/20 23 Active docusate sodium (Colace) 100 MG capsule Take 300 mg by mouth in the morning and 300 mg in the evening and 300 mg before bedtime. Active cholecalciferol (Vitamin D-3) 50 MCG (2000 UT) capsule Take 2,000 Units by mouth Daily 02/25/20 23 Active ascorbic acid (Vitamin C) 500 MG tablet Take 500 mg by mouth in the morning and 500 mg before bedtime. 02/25/20 23 Active albuterol HFA (Ventolin HFA) 90 mcg/act [...] 11/16/19 24 Active mupirocin (Bactroban) 2 % ointmentIndicati ons:Chronic rhinitis apply to left nose TWICE DAILY for 2 (TWO) weeks NEEDED 15 g 2 03/03/19 25 Active gabapentin (Neurontin) 300 MG capsuleIndicatio ns:Paresthesias 1 po 2-3 times a day. 90 capsule 2 03/31/19 25 Active metoprolol succinate XL (Toprol-XL) 25 MG 24 hr tablet 03/21/19 25 Active ciclopirox (Loprox) 0.77 % creamIndications :Rash [...] mg by mouth Daily 05/20/19 25 Active SUMAtriptan (Imitrex) 100 MG tabletIndication s:Migraine with aura and without status migrainosus, not intractable TAKE 1 TABLET BY MOUTH DAILY NEEDED FOR MIGRAINE 9 tablet 1 06/21/19 25 Active Mounjaro 2.5 MG/0.5ML solution auto-injectorInd ications:Type 2 diabetes mellitus without complication, unspecified whether laborer marine terminal insulin use ([facility]) INJECT 2.5 MG SUBCUTANEOUSLY (UNDER THE SKIN) EVERY 7 DAYS 2 mL 3 09/17/19 25 Active ferrous sulfate 28 MG tabletIndication s:Other osteoporosis without current pathological fracture,Other iron deficiency anemia Take 1 tablet (28 mg) by mouth in the morning. Take with meals. 30 tablet 11 11/03/19 25 Active Calcium Carbonate-Vit D-Min (Calcium 1200) 8577-3983 MG-UNIT chewable tabletIndication s:Osteopenia, unspecified location Chew 1,200 mg Daily 90 tablet 3 11/03/19 25 026 Active empagliflozin (Jardiance) 25 MGIndications:Ty pe 2 diabetes mellitus with hyperglycemia, without long-term current use of insulin ([facility]) Take 1 tablet (25 mg) by mouth Daily 30 tablet 5 12/02/19 25 025 Active pioglitazone (Actos) 30 MG tabletIndication s:Type 2 diabetes mellitus with hyperglycemia, without long-term current use of insulin ([facility]) Take 1 tablet (30 mg) by mouth Daily 30 tablet 5 12/02/19 25 Active semaglutide (Ozempic, 0.25 or 0.5 MG/DOSE,) 2 MG/1.5ML solution pen-injectorIndi cations:Type 2 diabetes mellitus with hyperglycemia, without long-term current use of insulin (HCC) Inject 0.5 mg under the skin 1 (one) time per week 4.5 mL 1 12/14/19 25 026 Active empagliflozin (Jardiance) 25 MGIndications:Ty pe 2 diabetes mellitus without complication, unspecified whether laborer marine terminal insulin use (HCC) Take 1 tablet (25 mg) by mouth Daily 30 tablet 2 08/05/19 25 025 Discontin ued(Reord er) pioglitazone (Actos) 30 MG tabletIndication s:Type 2 diabetes mellitus without complication, unspecified whether care home insulin use (HCC) Take 1 tablet (30 mg) by mouth Daily 30 tablet 3 08/05/19 25 025 Discontin ued(Reord er) semaglutide (Ozempic, 0.25 or 0.5 MG/DOSE,) 2 MG/1.5ML solution pen-injectorIndi cations:Type 2 diabetes mellitus without complication, unspecified whether laborer marine terminal insulin use (HCC) Inject 0.5 mg under the skin 1 (one) time per week 4.5 mL 1 11/22/19 25 025 Discontin ued(Reord er) Active Problems Problem Noted Date Diagnosed Date [...] (03/10/2023): Added automatically from request for surgery [id number] Lumbosacral spondylosis without myelopathy 07/22 Overview (03/10/2023): Added automatically from request for surgery [id number] PTSD (post-traumatic stress disorder) 06/16/2018 Cervical disc [...] Encounters Date Type Department Care Team Description 12/08/2024 Telephone [facility] [address] [place] [address] Cleo Zambrano MD Med Refill 12/01/2024 11:00 AM EDT Office Visit [facility] [address] [place] [address] Cleo Zambrano MD Type 2 diabetes mellitus with hyperglycemia, without long-term current use of insulin (HCC) (Primary Dx); Vitamin D deficiency; Weight gain; Encounter for dietary consultation; Hyperlipemia, mixed; Diabetes mellitus with complication (HCC); Hypoglycemia 12/01/2024 Refill [facility] [address] [place] [phone] Pilar Valdez LPN Type 2 diabetes mellitus with hyperglycemia, without long-term current use of insulin (HCC) 12/01/2024 Bamboo flowsheet [facility] [address] [place] [address] Cleo Zambrano MD 11/24/2024 Telephone [facility] [address] [place] [address] [place] [address] Roel Garber DO 11/21/2024 Orders Only [facility] [address] [place] [address] Cleo Zambrano MD Type 2 diabetes mellitus without complication, unspecified whether care home insulin use (HCC) (Primary Dx) 11/16/2024 Telephone [facility] [address] [place] [address] Cleo Zambrano MD Med Refill 11/11/2024 3:15 PM EDT Office Visit [facility] [address] [place] [address] Mendez Ortiz DO Obstructive sleep apnea (Primary Dx); Class 3 severe obesity with serious comorbidity and body mass index (BMI) of 40.0 to 44.9 in adult, unspecified obesity type ([facility]); Intolerance of continuous positive airway pressure (CPAP) ventilation 11/11/2024 Bamboo flowsheet [facility] [address] [place] [address] Mendez Ortiz, 11/11/2024 Travel 11/03/2024 Refill [facility] [address] [facility] [address] Arcelia Duran NP Osteopenia, unspecified location 11/03/2024 Abstract [facility] [address] [place] [address] [place] [address] Alissa Atkins MA 11/02/2024 1:20 PM EDT Office Visit [facility] [address] [place] [address] [place] [address] Roel Garber DO Osteopenia, unspecified location (Primary Dx); Other osteoporosis without current pathological fracture ; Other iron deficiency anemia 11/02/2024 Bamboo flowsheet [facility] [address] [facility] [address] Roel Garber DO 10/03/2024 Telephone [facility] [address] [place] [phone] Cleo Zambrano MD Med Refill 09/29/2024 10:15 AM EDT Office Visit [facility] [address] [place] [phone] Mendez Ortiz, Obstructive sleep apnea (Primary Dx) 09/29/2024 Bamboo flowsheet [facility] [address] [place] [address] Mendez Ortiz, 09/29/2024 Travel 09/21/2024 12:00 PM EDT Procedure Visit [facility] Mendez Ortiz DO Obstructive sleep apnea (Primary Dx) 09/21/2024 External Result Encounter [facility] External Department Unsolicited Mendez Ortiz, 09/20/2024 1:00 PM EDT Office Visit [facility] [address] [place] [address] Mendez Ortiz DO Obstructive sleep apnea (Primary Dx); Class 3 severe obesity with serious comorbidity and body mass index (BMI) of 40.0 to 44.9 in adult, unspecified obesity type ([facility]); Breakdown (mechanical) of implanted electronic neurostimulator, generator, sequela 09/20/2024 Bamboo flowsheet [facility] [address] [place] [address] Mendez Ortiz, 09/20/2024 Travel 09/15/2024 Refill [facility] [address] [place] [address] Cleo Zambrano MD Type 2 diabetes mellitus without complication, unspecified whether laborer marine terminal insulin use (HCC) from Last 3 Months Immunizations Immunization Administration [...] EST Office Visit [facility] [address] [place] [address] Cleo Zambrano MD [address] [place] [address] 05/31/2025 1:00 PM EDT Office Visit [facility] [address] [facility] [address] Roel Garber DO [address] [facility] [address] [place], [place] [phone] 08/18/2025 2:00 PM EDT Office Visit [facility] [address] [place] [address] Mendez Ortiz, [address] [place] [address] Health Maintenance Due Date Last Done Comments [...] GLUCOMETERS 89 mg/dL 09/21/2024 11:07 AM EDT [facility] Comment: Random Glucose Reference Range is dependent on time and content of last meal. Glucose of more than 200 mg/dL in a nonstressed, ambulatory subject supports the diagnosis of Diabetes Mellitus. COMMEMT1 Glu2: Cleaned Meter 09/21/2024 11:07 AM EDT [facility] Blood (Blood) 09/21/2024 11: 00 AM EDT 09/21/2024 11:07 AM EDT Mendez Ortiz DO LAB BLOOD ORDERABLES Final Result Performing Organization Address City/State/RUST Co de Phone Number [facility] [address] [facility] [facility] [place] [address], * MM TOMOSYNTHESIS SCREENING BI (05/27/2024 4:48 PM EDT) Anatomical Region Laterality Modality Other 05/27/2024 4:48 PM EDT Narrative 05/27/2024 4:49 PM EDT [address] [address] Mammography Report Signed Patient: PEE WHITEHEAD MR#: [id number] : 1980 Acct:[id number] Age/Sex: 43 / F ADM Date: 05/27/24 Loc: MAMMO Attending Dr: Roel Garber D.O. Ordering Physician: Roel Garber D.O. Results: Date of Service: 05/27/24 Follow Up: Procedure(s): MM tomosynthesis screening BI Accession Number(s): [id number] cc: Roel Garber D.O.; Loreto Mcneal NP Patient Name: PEE WHITEHEAD MR#: [id number] : 1980 Exam Date: 05/27/2024 Ordering Doctor: [...] Treatments None Family Cancers None LOCATION: [facility] BREAST COMPOSITION: There are scattered areas [...] Signed By: 05/27/24 1649 DD/ 47 TD/TT: Rotary Machine Operator: Procedure Note Radiology, Radiologist, MD - 05/27/2024 [place] [address] Mammography Report Signed Patient: PEE WHITEHEAD AMR#: [id number] : 1980Acct:[id number] Age/Sex: 43 / FADM Date: 05/27/24 Loc: MAMMO Attending Dr: Roel Garber D.O. Ordering Physician: Roel Garber D.O.Results: Date of Service: 05/27/24Follow Up: Procedure(s): MM tomosynthesis screening BI Accession Number(s): [id number] cc: Roel Garber D.O.; Loreto Mcneal NP Patient Name: PEE WHITEHEAD MR#: [id number] : 1980 Exam Date: 05/27/2024 Ordering Doctor: DR Roel Garber . RADIOLOGY REPORT PROCEDURE: MM TOMOSYNTHESIS SCREENING BI COMPARISON: MM DIAGNOSTIC MAMMO UNILAT RT, 03/25/2023. MG MAMM [id number] STELLA CAD, 03/16/2023. MM TOMOSYNTHESIS SCREENING BI, 11/07/2021. MM TOMOSYNTHESIS DIAGNOSTIC BI, 11/06/2020. INDICATIONS: Screening Calculator Name NCI Breast Cancer Risk Assessment Tool 5 Year Breast Cancer Risk Not Reported. Lifetime Breast Cancer Risk Not Reported. Personal Breast Cancer No Personal Ovarian Cancer No Treatments None Family Cancers None LOCATION: [facility] BREAST COMPOSITION: There are scattered areas [...] Serra D.O. Signed By:05/27/24 1649 DD/ TD/TT: Rotary Machine Operator: Roel Garber DO [facility] Final Result * Pap Smear (05/25/2023 12:00 AM EDT) Swab Cervical swab / Unknown us Roel Garber DO LAB CYTOLOGY ORDERABLES Final Re sult EXTERNAL LAB from Last 3 Months or Most Recently Relevant to Health Maintenance Insurance [employer] Care Teams Lip Cutter And Scorer Relationship Specialty Start Date End Date Shawna Dudley DO [address] [place], [place] [phone] PCP - General Family Medicine 04/14/22 Key Andrea NP [address] [place] [address] Referring Physician Family Medicine 08/13/23 Sasha Santos DO [address] [place], [place] [address] Referring Physician Neurology 05/10/24 Mendez Ortiz DO [address] [place] [address] Otolaryngology 08/19/24
--- OUTSIDE RECORDS SUMMARY | 2024-12-15 10:08 | XMS_ITS | Encounter Summary ---
Author Organization [facility] Address [address] [place] [address] Care Team Providers Care Industrial Furnace Fabricator Name Role Phone Key Andrea EXECUTIVE SECRETARY SOCIAL WELFARE Unavailable Shawna Dudley DO Primary Care Provider [phone] Sasha Santos DO Unavailable [phone] Mendez Ortiz DO Unavailable [phone] Reason for Visit * Reason Onset Date Comments Med Refill 12/08/2024 Encounter Details Date Type Department Care Team (Late st Contact Info) Description 12/08/2024 Telephone [facility] [address] [place] [address] Cleo Zambrano MD [address] [place] [address] Med Refill Social History Tobacco Use Types Packs/Day Years [...] Telephone Encounter - Pilar Valdez LPN - 12/15/2024 9:26 AM EDT PRIOR AUTH IS IN COVER MY MEDS AND SUBMITTED TO INSURANCE AND WAITING ON OUTCOME. * Telephone Encounter - Austin Perkins - 12/08/2024 1:22 PM EDT Pt would like to see if PA can be approved for Ozempic now that she has had adverse reactions to Mounjaro, and Trulicity. Please and thank you. documented in this encounter Plan of Treatment Upcoming Encounters Date Type Department Care Team (Late st Contact Info) Description 04/06/2025 10:40 AM EST Office Visit [facility] [address] [place] [address] Cleo Zambrano MD [address] [place] [address] 05/31/2025 1:00 PM EDT Office Visit [facility] [address] [facility] [place] [address] Roel Garber DO [address] [place], [place] [address] 08/18/2025 2:00 PM EDT Office Visit [facility] [address] [place] [address] Mendez Ortiz DO [address] [place] [address] documented as of this encounter Visit Diagnoses Diagnosis Type 2 diabetes mellitus with hyperglycemia, without long-term current use of insulin (HCC) documented in this encounter Care Teams Industrial Furnace Fabricator Relationship Specialty Start Date End Date Shawna Dudley DO [address] [place] [address] PCP - General Family Medicine 04/14/22 Key Andrea NP [address] [place] [address] Referring Physician Family Medicine 08/13/23 Sasha Santos DO [address] [place] [address] Referring Physician Neurology 05/10/24 Mendez Ortiz DO [address] [place] [address] Otolaryngology 08/19/24 documented as of this encounter
--- OUTSIDE RECORDS SUMMARY | 2024-12-15 10:08 | XMS_ITS | Encounter Summary ---
Author Organization [facility] Address [address] [place] [address] Care Team Providers Care Animal Behaviourist Name Role Phone Zully Key PUBLIC HEALTH INFORMATICIAN Unavailable Shawna Dudley DO Primary Care Provider [phone] Sasha Santos DO Unavailable [phone] Mendez Ortiz DO Unavailable [phone] Encounter Details Date Type Department Care Team (Late st Contact Info) Description 11/03/2024 Abstract [facility] [address] [place] [address] [place] [address] Wilbert Blair, MA Social History Tobacco Use Types Packs/Day [...] Visit [facility] [address] [place] [address] Cleo Zambrano MD [address] [place] [address] 05/31/2025 1:00 PM EDT Office Visit [facility] [address] [facility] [place] [address] Roel Garber DO [address] [facility] [place] [address] 08/18/2025 2:00 PM EDT Office Visit [facility] [address] [address] Mendez Ortiz DO [address] [place] [address] documented as of this encounter Visit Diagnoses Not on filedocumented in this encounter Care Teams Animal Behaviourist Relationship Specialty Start Date End Date Shawna Dudley DO [address] [place] [address] PCP - General Family Medicine 04/14/22 Key Andrea NP [address] [place] [address] Referring Physician Family Medicine 08/13/23 Sasha Santos DO [address] [place] [address] Referring Physician Neurology 05/10/24 Mendez Ortiz DO [address] [place] [address] Otolaryngology 08/19/24 documented as of this encounter
--- OUTSIDE RECORDS SUMMARY | 2024-12-15 10:08 | XMS_ITS | Encounter Summary ---
Author Organization [facility] Address [address] [place] [address] Care Team Providers Care Generator Operator Straight Bevel Gear Name Role Phone Key Andrea PROCESS CONTROL SPECIALIST Unavailable Shawna Dudley DO Primary Care Provider [phone] Sasha Santos DO Unavailable [phone] Mendez Ortiz DO Unavailable Encounter Details Date Type Department Care Team (Late st Contact Info) Description 06/02/2023 Orders Only [facility] [address] [address] Becky Silvestre LPN [address] [facility] [place] [address] Social History Tobacco Use Types Packs/Day [...] [facility] [address] [place] [address] Cleo Zambrano MD [address] [place] [address] 05/31/2025 1:00 PM EDT Office Visit [facility] [address] [facility] [place] [address] Roel Garber DO [address] [facility] [place] [address] 08/18/2025 2:00 PM EDT Office Visit [facility] [address] [place] [place] [address] Mendez Ortiz DO [address] [place] [address] documented as of this encounter Procedures Procedure Name Priority Date/Time Associated Diagnosis Comments PAP SMEAR Routine 05/25/2023 12:00 AM EDT documented in this encounter Results * Pap Smear (05/25/2023 12:00 AM EDT) Swab Cervical swab / Unknown oRel Garber DO LAB CYTOLOGY ORDERABLES Final Re sult EXTERNAL LAB documented in this encounter Visit Diagnoses Not on filedocumented in this encounter Care Teams Generator Operator Straight Bevel Gear Relationship Specialty Start Date End Date Shawna Dudley DO [address] [facility] [place] [address] PCP - General Family Medicine 04/14/22 Key Andrea, JO ANN [address] [place] [address] Referring Physician Family Medicine 08/13/23 Sasha Santos DO [address] [place] [address] Referring Physician Neurology 05/10/24 Mendez Ortiz DO [address] [place] [address] Otolaryngology 08/19/24 documented as of this encounter
[2024-12-15 10:44] LABS: Hematocrit 40.1 % (36.0-48.0); Hemoglobin 13.2 g/dL (12.0-16.0); Immature Granulocytes Abs Auto 0.03 10^3/uL (0.00-0.03); Immature Granulocytes Pct Auto 0.3 % (0.0-0.5); Lymphocytes Absolute Auto 2.7 10^3/uL (1.2-3.8); Mean Corpuscular HGB Conc 32.9 g/dL (29.9-35.2); Mean Corpuscular Hemoglobin 28.6 pg (26.7-34.0); Mean Corpuscular Volume 87.0 fL (81.0-99.0); Platelet Count 285 10^3/uL (150-450); Red Blood Count 4.61 10^6/uL (4.20-5.40); White Blood Count 9.4 10^3/uL (4.0-11.0)
[2024-12-15 11:13] LABS: Alanine Aminotransferase 70 U/L (14-59); Albumin Globulin Ratio 0.9; Albumin Level 3.5 g/dL (3.4-5.0); Alkaline Phosphatase 100 U/L (46-116); Anion Gap 12.6; Aspartate Amino Transferase 32 U/L (15-37); Blood Urea Nitrogen 18.0 mg/dL (7.0-18.0); Calcium 8.8 mg/dL (8.5-10.1); Carbon Dioxide 25.4 mmol/L (21.0-32.0); Chloride 108 mmol/L (98-107); Estimated GFR (African America >60 (>=60 mL/min/1.73m^2); Estimated GFR (Non-African Ame >60 (>=60 mL/min/1.73m^2); Globulin 3.9 g/dL; Glucose 122 mg/dL (74-106); Potassium 4.0 mmol/L (3.5-5.1); Sodium 142 mmol/L (136-145); Total Protein 7.4 g/dL (6.4-8.2)
[2024-12-15 12:37] LABS: Iron 74.0 ug/dL (50.0-170.0); Percent Iron Saturation 28.2 %; Total Iron Binding Capacity 262.0 ug/dL (250.0-450.0)
[2024-12-15 13:27] LABS: Ferritin 374.0 ng/mL (8.0-252.0); Folate 31.30 ng/mL (8.60-58.90)
[2024-12-16 07:12] LABS: Vitamin B12 405 pg/mL (232-1245)
== END 2024-12-15 10:03 | disposition home or self-care (01) ==
PROVIDERS: PCP Nurse Practitioner Family; Visit Provider Internal Medicine Hematology & Oncology
DX: D64.9 Anemia, unspecified (principal); D50.9 Iron deficiency anemia, unspecified; K90.9 Intestinal malabsorption, unspecified; Z15.09 Genetic susceptibility to other malignant neoplasm
CPT/HCPCS: 36415; 80053; 82306; 82607; 82728; 82746; 83540; 83550; 85025

== ENCOUNTER 2024-12-28 06:45 | Outpatient (OUT) | payer OTHER, SELFPAY ==
--- OUTSIDE RECORDS SUMMARY | 2023-11-17 05:15 | XMS_ITS ---
Author Organization [facility] Address [address] [place] [address] Care Team Providers Care Data Processing Manager Name Role Phone Chinyere Calix Primary Care Provider [phone] REASON FOR VISIT med f/u, *keep* SR Encounters Encounter Location Date Provider Diagnosis [facility] [address] [place] [address] 11/17/2023 Chinyere Calix Plan Of Treatment Next Appt Details Provider Name:Chinyere Churchill Calix, 01/02/2025 04:30:00 PM, [address], [place], [address], Provider Name:Chinyere Calix, 03/27/2025 03:30:00 PM, [address], [place], [address], Progress Notes * PEE WHITEHEADDOB:[birth year] (44 yo F)Acc No.[id number]:11/17/2023 Behavioral Health Patient: Miryam PEE CROFT Provider:?Chinyere CalixDOB:1980???Age:43 Y ???Sex:FemaleDate:4Phone:[phone]: [address] [place], [place] Subjective: * Chief Complaints: * m ed f/u, *keep* SR * Electronic signature of FAWN Acosta, [employer] DES[employer] on 12/28/2024 at 06:48 AM EDT Sign off status: Pending * Appointment Provider: Precious Calix Date: 0 11/17/2023 Generated for Printing/Faxing/eTransmitting on:?12/28/2024 06:48 AM EDT
--- OUTSIDE RECORDS SUMMARY | 2024-02-15 10:45 | XMS_ITS ---
Author Organization [facility] vices Address [address] [place], [place] [id number] Care Team Providers Care Exchange Underwriting Consultant Name Role Phone MaytebrayanMarlonLoreto Primary Care Provider Monique Nuñez Unavailable [phone] Nitza Robles Unavailable [phone] REASON FOR VISIT HTn Social History Sex Assigned At : Social History Observation Description Sex Assigned At Female Encounters Encounter Location Date Provider Diagnosis Main [address] [place], [place] [id number] 02/15/2024 Nitza Robles Plan Of Treatment Next Appt Details Provider Name:Loreto ludwig, 02/27/2025 08:45:00 AM, [address] [place] [address], [id number], Provider Name:Fara Sampson , 03/16/2025 10:45:00 AM, [address] [place] [address], [phone], Progress Notes * Karma SR ADOB: (44 yo F)Acc No.[id number]:02/15/2024 Medical Note Patient: Miryam LOMELI Karma GUTIERREZ :?Nitza RoblesDOB:1980???Age:43 Y???Sex: FemaleDate:4Phone:[phone]:[address] [facility] [place], [id number]:Loreto Mcneal Subjective: * Chief Complaints: * 1 . HTn. * Medical History: Objective: * Vitals: Assessment: Plan: * Treatment: * Billing Information: * Visit Code: * Procedure Codes: * Electronic signature of AILYN Siddiqi on 12/28/2024 at 06:48 AM EDTSign off status: Pending * Provider: Kerline Robles Date: 1 04/17/2023 Generated for Printing/Faxing/eTransmitting on:?12/28/2024 06:48 AM EDT
--- OUTSIDE RECORDS SUMMARY | 2024-02-15 10:45 | XMS_ITS ---
Author Organization [facility] vices Address [address] [place], [place] [address] Care Team Providers Care Personal Service Workers Name Role Phone MaytebrayanMarlonLoreto Primary Care Provider Monique Nuñez Unavailable [phone] Nitza Robles Unavailable [phone] REASON FOR VISIT HTN Social History Sex Assigned At : Social History Observation Description Sex Assigned At Female Encounters Encounter Location Date Provider Diagnosis Main [address] [place], [place] [id number] 02/15/2024 Nitza Robles Plan Of Treatment Next Appt Details Provider Name:Loreto ludwig, 02/27/2025 08:45:00 AM, [address] [place] [address], [id number], Provider Name:Fara Sampson , 03/16/2025 10:45:00 AM, [address] [place] [address], [phone], Progress Notes * Karma SR ADOB: (44 yo F)Acc No.[id number]:02/15/2024 Medical Note Patient: Miryam LOMELI Karma GUTIERREZ :?Nitza RoblesDOB:1980???Age:43 Y???Sex: FemaleDate:4Phone:[phone]:[address] [facility] [place], [place]Ofx:Loreto Mcneal Subjective: * Chief Complaints: * 1 . HTN. * Medical History: Objective: * Vitals: Assessment: Plan: * Treatment: * Billing Information: * Visit Code: * Procedure Codes: * Electronic signature of AILYN Siddiqi on 12/28/2024 at 06:48 AM EDTSign off status: Pending * Provider: Kerline Robles Date: 1 04/17/2023 Generated for Printing/Faxing/eTransmitting on:?12/28/2024 06:48 AM EDT
--- OUTSIDE RECORDS SUMMARY | 2024-02-22 05:00 | XMS_ITS ---
Author Organization [facility] [place] Address [address] [place] [address] Care Team Providers Care Table Runner Name Role Phone Villa CHERRY, Rory Primary Care Provider Unavailab Carmen Cuellar Unavailable [phone] REASON FOR VISIT CL1 Encounters Encounter Location Date Provider Diagnosis [facility] [address] [place] [address] 02/22/2024 Carmen Fisher Plan Of Treatment Next Appt Details Provider Name:Carmen Fisher , 01/03/2025 09:00:00 AM, [address] [place], [address], Progress Notes * Karma WHITEHEADDOB:[birth year] (44 yo F)Acc No.[id number]:02/22/2024 UNLOCKED PROGRESS NOTE Progress Note Patient: Miryam BARRIGAMATTSaudKarma :?Carmen Fisher M.D.:1980???Age:43 Y ???Sex:FemaleDate:02/22/2024hone:[phone]:[address] [place], [place]Pcp:Rory Driver NP Subjective: * Chief Complaints: * 1 . CL1. * Medical History: Objective: * Vitals: Assessment: Plan: * Treatment: * * Electronic signature of Carmen Fisher MD, [id number] on 12/28/2024 at 06:51 AM EDTSign off status: PendingVisit Status:?PEN (Pending) * Provider: Kerline Fisher M.D. Date: 04/24/2023 Generated for Printing/Faxing/eTransmitting on:?12/28/2024 06:51 AM EDT
--- OUTSIDE RECORDS SUMMARY | 2024-02-22 09:30 | XMS_ITS ---
Author Organization [facility] vices Address [address] [place], [place] [address] Care Team Providers Care Electrolysist Name Role Phone Loreto Mcneal Primary Care Provider Monique Nuñez Unavailable [phone] Key Andrea Unavailable [phone] REASON FOR VISIT Wellness Social History Sex Assigned At : Social History Observation Description Sex Assigned At Female Encounters Encounter Location Date Provider Diagnosis [place] [address] [place] [address] 02/22/2024 Key Andrea Plan Of Treatment Next Appt Details Provider Name:Loreto ludwig, 02/27/2025 08:45:00 AM, [address] [place] [address], [id number], Provider Name:Fara Sampson , 03/16/2025 10:45:00 AM, [address] [place] [address], [phone], Progress Notes * Karma SR ADOB: (44 yo F)Acc No.[id number]:02/22/2024 Medical Note Patient: Miryam Karma KOWALSKI :Mary Ann AndreaDOB:1980???Age:43 Y???Sex:Female Date:4Phone:[phone]:[address] [place], [place] Pcp:Loreto Mcneal Subjective: * Chief Complaints: * 1 . Wellness. * Medical History: Objective: * Vitals: Assessment: Plan: * Treatment: * Billing Information: * Visit Code: * Procedure Codes: * Electronic signature of EMILIA Lou on 12/28/2024 at 06:51 AM EDTSign off status: Pending * Provider: Nicholas Andrea Date: 1 04/24/2023 Generated for Printing/Faxing/eTransmitting on:?12/28/2024 06:51 AM EDT
--- OUTSIDE RECORDS SUMMARY | 2024-03-14 09:30 | XMS_ITS ---
Author Organization [facility] vices Address [address] [place], [place] [address] Care Team Providers Care Artillery Maintenance Supervisor Name Role Phone FredisJennyLoreto Primary Care Provider Monique Nuñez Unavailable [phone] Sol Munoz Unavailable [phone] REASON FOR VISIT Elevated HR Social History Sex Assigned At : Social History Observation Description Sex Assigned At Female Encounters Encounter Location Date Provider Diagnosis Main [address] [place] [id number] 03/14/2024 Sol Munoz Plan Of Treatment Next Appt Details Provider Name:Loreto uldwig, 02/27/2025 08:45:00 AM, [address] [place] [address], [phone], Provider Name:Fara Sampson , 03/16/2025 10:45:00 AM, [address] [place] [address], [phone], Progress Notes * Karma SR ADOB: (44 yo F)Acc No.[id number]:03/14/2024 Medical Note Patient: Miryam Karma KOWALSKI :?Sol Munoz, MDDOB:1980???Age:43 Y???Sex: FemaleDate:03/14/2024Phone:[phone]:[address] [place], [place]Pcp:Loreto Raynainabrayan Subjective: * Chief Complaints: * 1 . Elevated HR. * Medical History: Objective: * Vitals: Assessment: Plan: * Treatment: * Billing Information: * Visit Code: * Procedure Codes: * Electronic signature of Sol Munoz MD on 12/28/2024 at 06:49 AM EDTSign off status: Pending * Provider: Lázaro Munoz MD Date: 0 03/14/2024 Generated for Printing/Faxing/eTransmitting on:?12/28/2024 06:49 AM EDT
--- OUTSIDE RECORDS SUMMARY | 2024-03-29 05:00 | XMS_ITS ---
Author Organization The [facility] in [place] Address [address] [place] [address] Care Team Providers Care Recording Clerk Name Role Phone Villa CHERRY, Rory Primary Care Provider Unavailab Carmen Cuellar Unavailable [phone] REASON FOR VISIT MD TELEHEALTH Encounters Encounter Location Date Provider Diagnosis The [facility] Oncology [address] [place] [address] 03/29/2024 Carmen Fisher Plan Of Treatment Next Appt Details Provider Name:Carmen Fisher , 01/03/2025 09:00:00 AM, [address] [place], [address], Progress Notes * Karma WHITEHEADDOB:[birth year] (44 yo F)Acc No.[id number]:03/29/2024 UNLOCKED PROGRESS NOTE Progress Notes Patient: Karma MUNOZ :?Carmen Fisehr M.D.:1980???Age:43 Y ???Sex:FemaleDate:03/29/2024Phone:[phone]:[address] [place], [place]Pcp:Rory Driver NP Subjective: * Chief Complaints: * 1 . TELEHEALTH. * Medical History: Objective: * Vitals: Assessment: Plan: * Treatment: * * Electronic signature of Carmen Fisher MD, [id number] on 12/28/2024 at 06:49 AM EDTSign off status: PendingVisit Status:?CANC (Cancelled) * Provider: Kerline Fisher M.D. Date: 0 03/29/2024 Generated for Printing/Faxing/eTransmitting on:?12/28/2024 06:49 AM EDT
--- OUTSIDE RECORDS SUMMARY | 2024-03-29 10:30 | XMS_ITS ---
Author Organization The [facility] in [place] Address [address] [place] [address] Care Team Providers Care Filenet Admin Name Role Phone Villa CHERRY, Rory Primary Care Provider Unavailab Carmen Cuellar Unavailable [phone] REASON FOR VISIT MD TELEHEALTH Encounters Encounter Location Date Provider Diagnosis The Oncology [address] [place] [address] 03/29/2024 Carmen Fisher Plan Of Treatment Next Appt Details Provider Name:Carmen Fisher , 01/03/2025 09:00:00 AM, [address] [place], [address], Progress Notes * Karma WHITEHEADDOB:[birth year] (44 yo F)Acc No.[id number]:03/29/2024 UNLOCKED PROGRESS NOTE Progress Notes Patient: Karma MUNOZ :?Carmen Fisher M.D.:1980???Age:43 Y ???Sex:FemaleDate:03/29/2024Phone:[phone]:[address] [place], [place]Pcp:Rory Driver NP Subjective: * Chief Complaints: * 1 . TELEHEALTH. * Medical History: Objective: * Vitals: Assessment: Plan: * Treatment: * * Electronic signature of Carmen Fisher MD, [id number] on 12/28/2024 at 06:50 AM EDTSign off status: PendingVisit Status:?PEN (Pending) * Provider: Kerline Fisher M.D. Date: 0 03/29/2024 Generated for Printing/Faxing/eTransmitting on:?12/28/2024 06:50 AM EDT
--- OUTSIDE RECORDS SUMMARY | 2024-06-14 07:30 | XMS_ITS ---
Author Organization The [facility] in [place] Address [address] [place] [address] Care Team Providers Care Child Life Specialist Name Role Phone Villa CHERRY, Rory Primary Care Provider Unavailab Carmen Cuellar Unavailable [phone] REASON FOR VISIT MD Encounters Encounter Location Date Provider Diagnosis [facility] On[facility] [address] [place] [address] 06/14/2024 Carmen Fisher Plan Of Treatment Next Appt Details Provider Name:Carmen Fisher , 01/03/2025 09:00:00 AM, [address] [place], [address], Progress Notes * Karma WHITEHEADDOB:[birth year] (44 yo F)Acc No.[id number]:06/14/2024 UNLOCKED PROGRESS NOTE Progress Notes Patient: Miryam WELLSULLKarma :?Carmen Fisher M.D.:1980???Age:43 Y ???Sex:FemaleDate:06/14/2024Phone:[phone]:[address] [place], [place]-[address]Pcp:Rory Driver NP Subjective: * Chief Complaints: * 1 . MD. * Medical History: Objective: * Vitals: Assessment: Plan: * Treatment: * * Electronic signature of Carmen Fisher MD, [id number] on 12/28/2024 at 06:48 AM EDTSign off status: PendingVisit Status:?ANSPH (Voice) * Provider: Kerline Fisher M.D. Date: 0 06/14/2024 Generated for Printing/Faxing/eTransmitting on:?12/28/2024 06:48 AM EDT
--- OUTSIDE RECORDS SUMMARY | 2024-06-15 04:30 | XMS_ITS ---
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 Name Role Phone Calix Chinyere Primary Care Provider [phone] REASON FOR VISIT 3 month f/u Encounters Encounter Location Date Provider Diagnosis [facility] [address] [place] [address] 06/15/2024 Chinyere Calix Plan Of Treatment Next Appt Details Provider Name:Chinyere Churchill Calix, 01/02/2025 04:30:00 PM, [address], [place], [address], Provider Name:Chinyere Calix, 03/27/2025 03:30:00 PM, [address], [place], [address], Progress Notes * PEE WHITEHEADDOB:[birth year] (44 yo F)Acc No.[id number]:06/15/2024 Behavioral Health Patient: Miryam PEE CROFT Provider:?Chinyere CalixDOB:1980???Age:43 Y ???Sex:FemaleDate:06/15/2024Phone:[phone]:[address] [place], [place] Subjective: * Chief Complaints: * 3 month f/u * Electronic signature of FAWN Acosta FNP on 12/28/2024 at 06:51 AM EDT Sign off status: Pending * Appointment Provider: Precious Calix Date: 0 06/15/2024 Generated for Printing/Faxing/eTransmitting on:?12/28/2024 06:51 AM EDT
--- OUTSIDE RECORDS SUMMARY | 2024-08-25 05:30 | XMS_ITS ---
Author Organization [facility] vices Address [address] [place] [phone] Care Team Providers Care Profiling Machine Setup Operator Name Role Phone FredisJennyLoreto Primary Care Provider [phone] Monique Nuñez Unavailable [phone] Deepika Banks Unavailable [phone] REASON FOR VISIT Recall (A) 43 Social History Sex Assigned At : Social History Observation Description Sex Assigned At Female Encounters Encounter Location Date Provider Diagnosis [facility] [address] [place] [phone] 08/25/2024 Deepika Banks Plan Of Treatment Next Appt Details Provider Name:Loreto ludwig, 02/27/2025 08:45:00 AM, [address] [place] [address], [phone], Provider Name:Fara Sampson , 03/16/2025 10:45:00 AM, [address] [place] [address], [phone], Progress Notes * Karma SR ADOB: (44 yo F)Acc No.[id number]:08/25/2024 Patient:?Karma SR :?Deepika Banks DDSDOB:1980???Age:43 Y ???Sex:FemaleDate:08/25/2024Phone:[phone]:[address] [place], [place]-[address]Pcp:Loreto Fredis Subjective: * Chief Complaints: * 1 . Recall (A) 43. * Medical History: Objective: * Vitals: Assessment: Plan: * Treatment: * Billing Information: * Visit Code: * Procedure Codes: * Electronic signature of Deepika Banks DDS on 12/28/2024 at 06:49 AM EDTSign off status: Pending * Provider: Ana Banks DDS Date: 0 08/25/2024 Generated for Printing/Faxing/eTransmitting on:?12/28/2024 06:49 AM EDT
--- OUTSIDE RECORDS SUMMARY | 2024-09-13 07:00 | XMS_ITS ---
Author Organization The [facility] in [place] Address [address] [place] [address] Care Team Providers Care Nursing Officer Name Role Phone Villa CHERRY, Rory Primary Care Provider Unavailab Carmen Cuellar Unavailable [phone] REASON FOR VISIT MD Encounters Encounter Location Date Provider Diagnosis The [facility] [address] [place] [address] 09/13/2024 Carmen Fisher Plan Of Treatment Next Appt Details Provider Name:Carmen Fisher , 01/03/2025 09:00:00 AM, [address] [place], [address], Progress Notes * Karma WHITEHEADDOB:[birth year] (44 yo F)Acc No.[id number]:09/13/2024 UNLOCKED PROGRESS NOTE Progress Notes Patient: Miryam BARRIGABASSAMKarma :?Carmen Fisher M.D.:1980???Age:43 Y ???Sex:FemaleDate:09/13/2024Phone:[phone]:[address] [place], [place]Pcp:Rory Driver NP Subjective: * Chief Complaints: * 1 . MD. * Medical History: Objective: * Vitals: Assessment: Plan: * Treatment: * * Electronic signature of Carmen Fisher MD, [id number] on 12/28/2024 at 06:50 AM EDTSign off status: PendingVisit Status:?CANC (Cancelled) * Provider: Kerline Fisher M.D. Date: 0 09/13/2024 Generated for Printing/Faxing/eTransmitting on:?12/28/2024 06:50 AM EDT
--- OUTSIDE RECORDS SUMMARY | 2024-09-13 07:30 | XMS_ITS ---
Author Organization The [facility] in [place] Address [address] [place] [address] Care Team Providers Care Analyst Programmer Name Role Phone Villa CHERRY, Rory Primary Care Provider Unavailab Carmen Cuellar Unavailable [phone] REASON FOR VISIT MD Encounters Encounter Location Date Provider Diagnosis [facility] [address] [place] [address] 09/13/2024 Carmen Fisher Plan Of Treatment Next Appt Details Provider Name:Carmen Fisher , 01/03/2025 09:00:00 AM, [address] [place], [address], Progress Notes * Karma WHITEHEADDOB:[birth year] (44 yo F)Acc No.[id number]:09/13/2024 UNLOCKED PROGRESS NOTE Progress Notes Patient: Miryam BARRIGABASSAMKarma :?Carmen Fisher M.D.:1980???Age:43 Y ???Sex:FemaleDate:09/13/2024Phone:[phone]:[address] [place], [place]Pcp:Rory Driver NP Subjective: * Chief Complaints: * 1 . MD. * Medical History: Objective: * Vitals: Assessment: Plan: * Treatment: * * Electronic signature of Carmen Fisher MD, [id number] on 12/28/2024 at 06:52 AM EDTSign off status: PendingVisit Status:?CANC (Cancelled) * Provider: Kerline Fisher M.D. Date: 0 09/13/2024 Generated for Printing/Faxing/eTransmitting on:?12/28/2024 06:52 AM EDT
--- OUTSIDE RECORDS SUMMARY | 2024-09-19 06:15 | XMS_ITS ---
Author Organization [facility] Servic es Address [address] [place] [address] Care Team Providers Care Software Analyst Name Role Phone Yogi Chinyere Primary Care Provider Encounters Encounter Location Date Provider Diagnosis [facility] [address] [place] [address] 09/19/2024 Chinyere Calix Plan Of Treatment Next Appt Details Provider Name:Chinyere Churchill Calix, 01/02/2025 04:30:00 PM, [address], [place], [address], Provider Name:Chinyere Churchill Calix, 03/27/2025 03:30:00 PM, [address], [place], [address], Progress Notes * PEE WHITEHEADDOB:[birth year] (44 yo F)Acc No.[id number]:09/19/2024 Behavioral Health Patient: Miryam PEE CROFT Provider:?Chinyere CalixDOB:1980???Age:43 Y ???Sex:FemaleDate:09/19/2024Phone:[phone]:[address] [place], [place] * Electronic signature of FAWN Acosta FNP on 12/28/2024 at 06:50 AM EDT Sign off status: Pending * Appointment Provider: Precious Calix Date: 0 09/19/2024 Generated for Printing/Faxing/eTransmitting on:?12/28/2024 06:50 AM EDT
--- OUTSIDE RECORDS SUMMARY | 2024-09-20 07:30 | XMS_ITS ---
Author Organization [facility] [place] Address [address] [place] [address] Care Team Providers Care Tanker Driver Name Role Phone Villa CHERRY, Rory Primary Care Provider Unavailab Carmen Cuellar Unavailable [phone] REASON FOR VISIT MD Encounters Encounter Location Date Provider Diagnosis [facility] Oncology [address] [place] [address] 09/20/2024 Carmen Fisher Plan Of Treatment Next Appt Details Provider Name:Carmen Fisher , 01/03/2025 09:00:00 AM, [address] [place], [address], Progress Notes * Karma WHITEHEADDOB:[birth year] (44 yo F)Acc No.[id number]:09/20/2024 UNLOCKED PROGRESS NOTE Progress Notes Patient: Miryam BARRIGAMATTKarma :?Carmen Fisher M.D.:1980???Age:43 Y ???Sex:FemaleDate:09/20/2024Phone:[phone]:[address] [place], [place]Pcp:Rory Driver NP Subjective: * Chief Complaints: * 1 . MD. * Medical History: Objective: * Vitals: Assessment: Plan: * Treatment: * * Electronic signature of Carmen Fisher MD, [id number] on 12/28/2024 at 06:48 AM EDTSign off status: PendingVisit Status:?CANC (Cancelled) * Provider: Kerline Fisher M.D. Date: 0 09/20/2024 Generated for Printing/Faxing/eTransmitting on:?12/28/2024 06:48 AM EDT
--- OUTSIDE RECORDS SUMMARY | 2024-09-27 10:45 | XMS_ITS ---
Author Organization [facility] [place] Address [address] [place] [address] Care Team Providers Care Physics Department Chair Name Role Phone Villa CHERRY, Rory Primary Care Provider Unavailab Carmen Cuellar Unavailable [phone] REASON FOR VISIT MD Encounters Encounter Location Date Provider Diagnosis [facility] On[facility] [address] [place] [address] 09/27/2024 Carmne Fisher Plan Of Treatment Next Appt Details Provider Name:Carmen Fisher , 01/03/2025 09:00:00 AM, [address] [place], [address], Progress Notes * Karma WHITEHEADDOB:[birth year] (44 yo F)Acc No.[id number]:09/27/2024 UNLOCKED PROGRESS NOTE Progress Notes Patient: Miryam BARRIGAMATTKarma :?Carmen Fisher M.D.:1980???Age:44 Y ???Sex:FemaleDate:09/27/2024Phone:[phone]:[address] [place], [place]-[address]Pcp:Rory Driver NP Subjective: * Chief Complaints: * 1 . MD. * Medical History: Objective: * Vitals: Assessment: Plan: * Treatment: * * Electronic signature of Carmen Fisher MD, [id number] on 12/28/2024 at 06:49 AM EDTSign off status: PendingVisit Status:?VOICEMSG (Voice) * Provider: Kerline Fisher M.D. Date: 0 09/27/2024 Generated for Printing/Faxing/eTransmitting on:?12/28/2024 06:49 AM EDT
--- OUTSIDE RECORDS SUMMARY | 2024-12-22 12:08 | XMS_ITS | Encounter Summary ---
Author Organization [facility] Address [address] [facility], [address] [place] [address] Care Team Providers Care Hydrocrane Operator Name Role Phone Loreto Mcneal APRN, NP Primary Care Prov ider Encounter Details DateTypeDepartmentCare Team (Latest Contact Info)Iszlafjaxse56/23/2025 12:08 PM EDT - 12/24/2024 11:59 PM EDTHospital Encounter [facility] [address] [place], [place] [phone] Renal calculus Discharge Disposition: Home or Self Care Social History Tobacco UseTypesPacks/DayYears UsedDateSmoking Tobacco: NeverSmokeless Tobacco: NeverAlcohol UseStandard Drinks/WeekCommentsNever0 (1 standard drink = 0.6 oz pure alcohol)AUDIT-CAnswerDate RecordedQ1: How often do you have a drink containing alcohol?Never10/05/2023Q2: How many drinks containing alcohol do you have on a typical day when you are drinking?Patient does not drink10/05/2023Q3: How often do you have six or more drinks on one occasion?Never10/05/2023UDIT-C AnswerDate RecordedQ1: How often do you have a drink containing alcohol?Never 11/17/2024Q2: How many drinks containing alcohol do you have on a typical day when you are drinking?Patient does not drink11/17/2024Q3: How often do you have six or more drinks on one occasion?Never11/17/2024Interpersonal Safety Domain Source: IP Abuse ScreeningAnswerDate RecordedPhysical mpvclXabbds72/18/2025 Verbal qafheVofbpc93/18/2025Emotional xalmuBmkcau64/18/2025Financial abuseDenies 11/17/2024Sexual tdovfEujciw47/18/2025CommentsNoSex and Gender InformationValueDate RecordedSex Assigned at BirthNot on fileLegal SexFemale 04/11/2012 2:04 PM ESTGender IdentityNot on fileSexual OrientationNot on file documented as of this encounter Medications at Time of Discharge MedicationSigDispense QuantityRefillsLast FilledStart DateEnd Date tamsulosin (FLOMAX) 0.4 MG capsule Take 1 [...] times daily Cholecalciferol (VITAMIN D3) 50 MCG (1999 UT) CAPS Take 1 capsule by mouth [...] daily as needed for Pain 30 tablet hydrOXYzine (ATARAX) 25 MG tablet Take 1 tablet by mouth every 4 hours as needed for Itching 30 tablet naproxen (NAPROSYN) 500 MG tablet Take 1 [...] MG tablet Take 1 tablet by mouth dailydocumented as of this encounter Plan of Treatment DateTypeDepartmentCare Team (Latest Contact Info)Jhmoyrktzvp56/30/2025 11:00 AM EDTOffice Visit [facility] Part of [address] [place] [address] Yudi Gomez, SPEECH PATHOLOGY SUPERVISOR - COMMUNITY AIDE [address] [place] [address] [address] [place] [address] 6w KUB/ KUB Reminder 10/22 BLdocumented as of this encounter Procedures Procedure NamePriorityDate/TimeAssociated DiagnosisCommentsXR ABDOMEN (KUB) (SINGLE AP VIEW)Vfuoydy5012/22/2024 12:27 PM EDT Renal calculus documented in this encounter Results * XR ABDOMEN (KUB) (SINGLE AP VIEW) (12/22/2024 12:27 PM EDT)Anatomical Region LateralityModalityAbdomenComputed RadiographySpecimen (Source)Anatomical Location / LateralityCollection Method / VolumeCollection TimeReceived Time 12/27/2024 8:56 AM EDT Impressions 12/27/2024 8:57 AM EDT 1. No acute findings. Narrative 12/27/2024 8:57 AM EDT EXAM: 1 VIEW XRAY OF THE ABDOMEN 12/22/2024 12:27:35 PM COMPARISON: 11/17/2024 CLINICAL HISTORY: KIDNEY STONES FINDINGS: BOWEL: Nonobstructive bowel gas pattern. SOFT TISSUES: Surgical clips in right upper quadrant from prior cholecystectomy. Calcified phleboliths in pelvis.No opaque urinary calculi. BONES: No acute osseous abnormality. Procedure Note Raul Navarro MD - 12/27/2024 EXAM: 1 VIEW XRAY OF THE ABDOMEN 12/22/2024 12:27:35 PM COMPARISON: 11/17/2024 CLINICAL HISTORY: KIDNEY STONES FINDINGS: BOWEL: Nonobstructive bowel gas pattern. SOFT TISSUES: Surgical clips in right upper quadrant from prior cholecystectomy.Calcified phleboliths in pelvis. No opaque urinary calculi. BONES: No acute osseous abnormality. IMPRESSION: 1. No acute findings. Authorizing ProviderResult TypeResult StatusBethnithya Cotter SPEECH PATHOLOGY SUPERVISOR - CNPIMG DIAGNOSTIC IMAGING ORDERABLESFinal Result documented in this encounter Visit Diagnoses Diagnosis Renal calculus Calculus of kidney documented in this encounter Care Teams Team MemberRelationshipSpecialtyStart DateEnd Date Loreto Mcneal APRN - NP [address] [facility] [place] [address] PCP - [facility]11/11/23documented as of this encounter
--- OUTSIDE RECORDS SUMMARY | 2024-12-27 09:15 | XMS_ITS ---
Author Organization [facility] in [place] Address [address] [place] [address] Care Team Providers Care Senior Engineering Team Leader Name Role Phone Villa CHERRY, Rory Primary Care Provider Unavailab LISA Prater Unavailable [phone] REASON FOR VISIT MD Encounters Encounter Location Date Provider Diagnosis [facility] On[facility] [address] [place] [address] 12/27/2024 LISA FISHER Plan Of Treatment Next Appt Details Provider Name:Lisa Fisher , 01/03/2025 09:00:00 AM, [address] [place], [address], Progress Notes * Karma WHITEHEADDOB:[birth year] (44 yo F)Acc No.[id number]:12/27/2024 UNLOCKED PROGRESS NOTE Progress Notes Patient: Miryam BARRIGAMATTKarma :JAKY FISHER M.D.:1980???Age:44 Y ???Sex:FemaleDate:12/27/2024Phone:[phone]:[address] [place], [place]-[address]Pcp:Rory Driver NP Subjective: * Chief Complaints: * 1 . MD. * Medical History: Objective: * Vitals: Assessment: Plan: * Treatment: * * Electronic signature of LISA FISHER MD on 12/28/2024 at 06:49 AM EDTSign off status: PendingVisit Status:?CANC (Cancelled) * Provider: Kerline FISHER M.D. Date: 1 Generated for Printing/Faxing/eTransmitting on:?12/28/2024 06:49 AM EDT
--- OUTSIDE RECORDS SUMMARY | 2024-12-27 10:30 | XMS_ITS ---
Author Organization [facility] Address [address] [place] [address] Care Team Providers Care Gang Drill Press Operator Name Role Phone Chinyere Calix Primary Care Provider REASON FOR VISIT 3 month f/u Medications Medication SIG (Take, Route, Frequency, Duration) Notes Start Date End Date Status Vyvanse 70 MG Capsule 1 capsule in the m orning Orally Once a day; Duration: 30 days DNF until 11/16/2024 09/21/2024 ActiveDocusate Sodium 100 MG Capsule3 capsules Orally Once a dayActiveLinzess 290 MCG Capsule1 capsule at least 30 minutes before the first meal of the day on an empty stomach Orally Once a dayActiveLamISILunknown dosageActive Cyclobenzaprine HClunknown dosageActiveLatuda 120 MG Tablet1 tablet in the evening with food Orally Once a day; Duration: 30 daysActiveVyvanse 70 MG Capsule1 capsule in the morning Orally Once a day; Duration: 30 daysDNF until /5ActivelamoTRIgine 200 MG Tablet1 tablet Orally Once a day; Duration: 30 daysActivetraZODone HCl 50 MG Tablet1-2 tablet at bedtime as needed Orally daily; Duration: 30 daysActiveFLUoxetine HCl 60 MG Tablet1 tablet Orally Once a day; Duration: 30 daysActiveJardiance 25 MG Tablet1 tablet Orally Once a dayActiveGabapentin 300 MG Capsule1 capsule Orally Three times a dayActiveActos 30 MG Tablet1 tablet Orally Once a dayActiveRosuvastatin Calcium 10 MG Tablet TAKE 1 TABLET BY MOUTH EVERY DAY Oral; Duration: 30ActiveVyvanse 70 MG Capsule1 capsule in the morning Orally Once a day; Duration: 30 days5Active Roel dosageActivePepcid 40 MG Tablet1 tablet at bedtime Orally Once a dayActive Encounters Encounter Location Date Provider Diagnosis [facility] [address] [place] [address] 12/27/2024 Chinyere Calix Bipolar 1 disorder, mixed, moderate F31.62 Assessments Encounter Date Diagnosis (ICD Code) Assessment Notes Treatment Notes Treatment Clinical Notes Section Notes 12/27/2024 Bipolar 1 disorder, mixed, moder ate (ICD-10 - F31.62) Plan Of Treatment Next Appt Details Provider Name:Chinyere Calix, 01/02/2025 04:30:00 PM, [address], [place], [address], Provider Name:Chinyere Calix, 03/27/2025 03:30:00 PM, [address], [place], [address], History and Physical Notes * HPI (History of Present Illness) CategorySub-CategoryDetailNotesCategory NotesConstitutional . Pt is here today for follow [...] night without interruptions. 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 Goal oriented behavior with good follow through. [...] accupuncture; sleep apnea. Sees Dr Santos at [facility], neuro. . Pt has taken stimulant medication chronically. LAST LABS: 03/2024 at [facility], Dr. Zelaya . HISTORICAL: since 2019, pt has taken Vyvanse, provigil, trazodone, prozac, latuda, quetiapine, lamotrigine . Denies suicidal or homicidal ideation or plan. No morbid thoughts. Interpersonal issues discussed. Support provided. Insight oriented/ Behavior modifying/ Supportive therapy . . Examination CategorySub-CategoryDetailNotesCategory NotesGeneral Examination . MENTAL STATUS EXAM: . Appearance: [...] AIMS Movements Disappear in Sleep: No . Progress Notes * PEE WHITEHEADDOB:[birth year] (44 yo F)Acc No.[id number]:12/27/2024 Behavioral Health Patient: PEE MUNOZ Provider:?Chinyere Jackson:1980???Age:44 Y ???Sex:FemaleDate:12/27/2024Phone:[phone]:[address] [facility] Subjective: * Chief Complaints: * 3 month f/u * HPI: ???Constitutional:?. Pt is here today for follow up. Pt has continued taking meds as prescribed.? Depressive symptoms are stable, chronic mild depression persists. Tolerates well.? Anxiety symptoms are stable and not occuring in session today.? Not using CPAP regularly, had inspire implanted and is waiting for it to be turned on.? . Energy and motivation stable, concentration intact without distractibility. Sleeping though the night without interruptions. 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 Goal oriented behavior with good follow through. [...] accupuncture; sleep apnea. Sees Dr Santos at [facility], neuro. . Pt has taken stimulant medication chronically. LAST LABS: 03/2024 at [facility], Dr. Zelaya . HISTORICAL: since 2019, pt has taken Vyvanse, provigil, trazodone, prozac, latuda, quetiapine, lamotrigine . Denies suicidal or homicidal ideation or plan. No morbid thoughts. Interpersonal issues discussed. Support provided. Insight oriented/ Behavior modifying/ Supportive therapy . . * ROS: ???CONSTITUTIONAL: No fever, chills, sweats, weakness SKIN: No jaundice, rash, lesions, petechiae GASTROINTESTINAL: No nausea, vomiting, diarrhea, or GI bleeding MUSCULOSKELETAL: No muscle pain or weakness NEUROLOGIC: No headache, dizziness, numbness, or weakness. * Medications: T akingVyvanse 70 MG Capsule 1 capsule in the morning Orally Once a day , Notes to Pharmacist: DNF until 10/19/2024Vyvanse 70 MG Capsule 1 capsule in the morning Orally Once a day , Notes to Pharmacist: DNF until 11/16/2024Docusate Sodium 100 MG Capsule 3 capsules Orally Once a day Linzess 290 MCG Capsule 1 capsule at least 30 minutes before the first meal of the day on an empty stomach Orally Once a day LamISIL , Notes to Pharmacist: unknown dosageCyclobenzaprine HCl , Notes to Pharmacist: unknown dosageVictoza , Notes to Pharmacist: unknown dosagePepcid 40 MG Tablet 1 tablet at bedtime Orally Once a day Jardiance 25 MG Tablet 1 tablet Orally Once a day Gabapentin 300 MG Capsule 1 capsule Orally Three times a day Actos 30 MG Tablet 1 tablet Orally Once a day Rosuvastatin Calcium 10 MG Tablet TAKE 1 TABLET BY MOUTH EVERY DAY Oral Vyvanse 70 MG Capsule 1 capsule in the morning Orally Once a day lamoTRIgine 200 MG Tablet 1 tablet Orally Once a day traZODone HCl 50 MG Tablet 1-2 tablet at bedtime as needed Orally daily FLUoxetine HCl 60 MG Tablet 1 tablet Orally Once a day Latuda 120 MG Tablet 1 tablet in the evening with food Orally Once a day Taking Vyvanse 70 MG Capsule 1 capsule in the morning Orally Once a day , Notes to Pharmacist: DNF until 10/19/2024Taking Vyvanse 70 MG Capsule 1 capsule in the morning Orally Once a day , Notes to Pharmacist: DNF until 11/16/2024Taking Docusate Sodium 100 MG Capsule 3 capsules Orally Once a day Taking Linzess 290 MCG Capsule 1 capsule at least 30 minutes before the first meal of the day on an empty stomach Orally Once a day Taking LamISIL , Notes to Pharmacist: unknown dosageTaking Cyclobenzaprine HCl , Notes to Pharmacist: unknown dosageTaking Victoza , Notes to Pharmacist: unknown dosageTaking Pepcid 40 MG Tablet 1 tablet at bedtime Orally Once a day Taking Jardiance 25 MG Tablet 1 tablet Orally Once a day Taking Gabapentin 300 MG Capsule 1 capsule Orally Three times a day Taking Actos 30 MG Tablet 1 tablet Orally Once a day Taking Rosuvastatin Calcium 10 MG Tablet TAKE 1 TABLET BY MOUTH EVERY DAY Oral Taking Vyvanse 70 MG Capsule 1 capsule in the morning Orally Once a day Taking lamoTRIgine 200 MG Tablet 1 tablet Orally Once a day Taking traZODone HCl 50 MG Tablet 1-2 tablet at bedtime as needed Orally daily Taking FLUoxetine HCl 60 MG Tablet 1 tablet Orally Once a day Taking Latuda 120 MG Tablet 1 tablet in the evening with food Orally Once a day Objective: * Examination: ???General Examination: ???. MENTAL STATUS EXAM: . Appearance: cooperative, pleasant,good [...] in Sleep: No . Assessment: * Assessment: 1.?Bipolar 1 disorder, mixed, moderate - F31.62 (Primary)??? * Electronic signature of FAWN Acosta FNP on 12/28/2024 at 06:49 AM EDT Sign off status: Pending * Appointment Provider: Precious Calix Date: 1 Generated for Printing/Faxing/eTransmitting on:?12/28/2024 06:49 AM EDT
--- NOTE | 2024-12-28 06:45 | NM_ITS ---
Patient Name: PEE WHITEHEAD MR#: [id number] : 1980 Exam Date: 12/28/2024 Ordering Doctor: NON-STAFF PHYSICIAN RADIOLOGY REPORT PROCEDURE: NM CARA PERF SPECT REST STR COMPARISON: None. INDICATIONS: CHEST PAIN TECHNIQUE: Exam Description: Stress/Rest one day protocol gated SPECT Rest Imagin.4 mCi Tc-99m Cardiolite IV on 12/28/2024 Stress Imaging 30.7 mCi Tc-99m Cardiolite IV on 12/28/2024 Exercise Protocol: 0.4 mg Lexiscan given IV Heart Rate (bpm): Rest: 80 Max: 104 PMHR: 59 Blood Pressure: Rest: 102/90 Max: 137/85 Symptoms: Rest and peak stress ECG findings were pending and the EKG portion of the study was pending per attending physician [facility] . For more details please see separate cardiac stress test report. FINDINGS: QUALITY OF STUDY: Good PERFUSION DEFECT: LOCATION: Apical SIZE: Very small SEVERITY: Mild to moderate TYPE: Fixed with adequate thickening and contractility consistent with soft tissue attenuation WALL MOTION: Normal LV SIZE: 71 mL. TID / TCD: 0.8 LVEF: Calculated EF 69%. SUMMARY: Normal myocardial perfusion imaging study CONCLUSION: Normal myocardial perfusion stress images without evidence of ischemia or infarction Normal left ventricle systolic function, ejection fraction 69% No transient ischemic dilatation, TID 0.8 EKG portion of stress test is reported separately Dictated by: Louis Cedillo MD on 12/28/2024 at 18:00 Approved by: Louis Cedillo MD on 12/28/2024 at 18:03
--- OUTSIDE RECORDS SUMMARY | 2024-12-28 06:49 | XMS_ITS | Patient Health Record ---
Author Organization [employer] Address [address] [facility] [address], [place] [address] Care Team Providers Care Police Aide Name Role Phone Adam Yung Unavailable [phone] Allergies Allergen (clinical drug ingredient) Drug/Non Drug Allergy documented on EMR Reaction Allergy Type Onset Date Status citalopram CeleXA Unknown Drug Allergy ActivecephalexinCephalexinUnknownDrug AllergyActive Reason For Referral No Information Medications Medication SIG (Take, Route, Frequency, Duration) Notes Start Date End Date Status FeroSul 325 (65 Fe) MG Tablet TAKE 1 TAB LET BY MOUTH DAILY Oral; Duration: 30 Days ActiveVitamin D3 125 MCG (5000 UT) TabletOral; Duration: 30 DaysActive lamoTRIgine 200 MG TabletTAKE 1 TABLET BY MOUTH DAILY Oral; Duration: 30 Days ActiveGabapentin 300 MG CapsuleOral; Duration: 30 DaysActivePantoprazole Sodium 20 MG Tablet Delayed ReleaseTAKE 1 TABLET BY MOUTH TWICE DAILY Oral; Duration: 30 DaysActiveVitamin C 500 MG TabletTAKE 1 TABLET BY MOUTH TWICE DAILY Oral; Duration: 30 DaysActiveOzempic (0.25 or 0.5 MG/DOSE)ActiveCeleBREX 50 MG Capsule 1 capsule Orally Once a dayActiveFLUoxetine HCl 60 MG TabletOral; Duration: 30 DaysActiveRizatriptan Benzoate 10 MG Tablet1 tablet Orally Once a dayActive Famotidine 40 MG TabletTAKE 1 TABLET BY MOUTH DAILY Oral; Duration: 30 Days ActiveSUMAtriptan Succinate 100 MG Tablet1 tablet as needed, may take second dose at least 2 hours after first dose up to 2 tablets per day as needed Orally Once a dayActiveMounjaro 2.5 MG/0.5ML Solution Auto-injectorSubcutaneous; Duration: 28 DaysActiveModafinil 200 MG Tablet1 tablet in the morning Orally Once a dayActiveVyvanse 70 MG CapsuleOral; Duration: 30 DaysActiveSucralfate 1 GM Tablet1 tablet on an empty stomach Orally Twice a dayActivePioglitazone HCl 30 MG TabletTAKE 1 TABLET BY MOUTH DAILY Oral; Duration: 30 DaysActive ErgocalciferolActivetraZODone HCl 50 MG TabletOral; Duration: 30 DaysActive Fluticasone Propionate 50 MCG/ACT Suspension1 spray in each nostril Nasally Twice a dayActivePravastatin Sodium 10 MG Tablet2 tablets Orally Once a day ActiveJardiance 25 MG TabletTAKE 1 TABLET BY MOUTH DAILY Oral; Duration: 30 Days ActiveRosuvastatin Calcium 10 MG TabletTAKE 1 TABLET BY MOUTH DAILY Oral; Duration: 30 DaysActiveMontelukast Sodium 10 MG Tablet1 tablet Orally Once a day ActiveVitamin D3 125 MCG (5000 UT) TabletTAKE 1 TABLET BY MOUTH DAILY Oral; Duration: 30 DaysActiveDiclofenac Sodium 75 MG Tablet Delayed ReleaseTAKE 1 TABLET BY MOUTH TWICE DAILY Oral; Duration: 30 DaysActiveUnilet LancetActive Triamcinolone Acetonide 40 MG/ML Suspension1.6 mL InjectionActiveDHEA 25 MG Tabletas directed OrallyActiveoxyCODONE-Acetaminophen 5-325 MG TabletTAKE 1 TO 2 TABLETS BY MOUTH EVERY 6 HOURS NEEDED FOR PAIN FOR 4 DAYS Oral; Duration: 4 DaysActive Social History Section Notes: Nonsmoker. No alcohol use. Encounters Encounter Location Date Provider Diagnosis [facility] [address] [address] 09/01/2024 Adam Yung Closed avulsion fracture of distal end of right fibula, initial encounter S82.831A ; Sprain of anterior talofibular ligament of left ankle, initial encounter S93.492A and Sprain of anterior talofibular ligament of right ankle, initial encounter S93.491A [employer] [address] [address] 09/29/2024 Adam Yung Sprain of anterior talofibular ligament of right ankle, initial encounter S93.491A ; Arthritis of left ankle M19.072 ; Other specified disorders of bone density and structure, unspecified site M85.80 and Sprain of anterior talofibular ligament of left ankle, initial encounter S93.492A Assessments Encounter Date Diagnosis (ICD Code) Assessment Notes Treatment Notes Treatment Clinical Notes Section Notes 09/01/2024 Sprain of anterior t alofibular ligament of left ankle, initial encounter (ICD-10 - S93.492A) Persistent left ankle pain following falls. X-rays already performed but unavailable for review today. Further evaluation needed due to ongoing symptoms. - New weight bearing left ankle xrays ordered. - Ordered CT of the left ankle for further evaluation. 09/01/2024losed avulsion fracture of distal end of right fibula, initial encounter (ICD-10 - S82.831A) Persistent right ankle pain and swelling following multiple falls, with history of fracture and ligament tears. Physical therapy not yet initiated for ankles. Patient uses boot, ankle braces, and icepacks for symptom management. - Discussed transition from boot to lace-up ankle brace as tolerated. - Recommended physical therapy for right ankle rehabilitation. 09/29/2024Sprain of anterior talofibular ligament of right ankle, [...] Encourage continuation of home exercises as tolerated. 09/29/2024rthritis of left ankle (ICD-10 - M19.072) Arthritis noted on imaging of the ankles. Patient aware of diagnosis and experiencing chronic symptoms. Pain and stiffness contribute to functional limitations. - Continue conservative management with physical therapy and braces. - Monitor for progression of symptoms. 09/29/2024Other specified disorders of bone density and structure, [...] OBGYN regarding Prolia and necessary blood work. 09/01/2024Sprain of anterior talofibular ligament of right ankle, initial encounter (ICD-10 - S93.491A)MRI obtained on 07/26/24 reviewed and radiologist reports grade 3 sprain of ATFL as well as sprain of deltoid ligaments and peroneal tendinitis. No osteochondral defect.09/29/2024Sprain of anterior talofibular ligament of left ankle, initial encounter (ICD-10 - S93.492A)X-rays and CT ordered at last visit were [...] surgical canidate at this time in addition jordon burns has not even made a PT appointment yet. Plan Of Treatment No Information Insurance Providers Payer Name Payer Address Payer Phone Subscriber Number Group Number Insured Name Patient Relationship to Insured Coverage Start Date Coverage End Date Medicaid [place] [employer] [address] [place] [address] [id number] Lyudmila Candelaria - patient is the insured Medical (General) History Medical History History ICD Code Arthritis AsthmaDepression/AnxietyAnemiaCervical CancerBipolarADHDType II DiabetesChronic Neck & Back PainOsteopeniaSurgical History Surgery Date(Month/Year) Right Shoulder Left FootGallbladderLower Back DiscSinustonsillectomy
--- OUTSIDE RECORDS SUMMARY | 2024-12-28 06:50 | XMS_ITS | Patient Health Record ---
Author Organization The [facility] in [place] Address [address] [place] [address] Care Team Providers Care Kiln Operator Helper Name Role Phone Rory Driver NP Primary Care Provider Unavailab carter Fisher, Lisa Unavailable [phone] Joy Yung Unavailable [phone] JORGE, LISA Unavailable [phone] Allergies Allergen (clinical drug ingredient) Drug/Non Drug Allergy documented on EMR Reaction Allergy Type Onset Date Status citalopram CeleXA Unknown Drug Allergy ActiveKeflexUnknownDrug AllergyActivemetforminMetforminUnknownDrug AllergyActive Results Component Value Reference Range Notes CBC AUTO DIFF (Not yet revie wed by provider) Interpretation: Performing Lab: Notes/Report: [facility] , White Blood Count 9.0 4.0-11.0 10 3/uL Red Blood Count4.934.20-5.40 10 6/mLIzlalpdgfe01.112.0-16.0 g/pHNwnvtvwatx43.7 36.0-48.0 %Mean Corpuscular Vzjfxz71.781.0-99.0 fLMean Corpuscular Hemoglobin 28.626.7-34.0 pgMean Corpuscular HGB Conc31.529.9-35.2 g/dLRed Cell Distribution Width13.611.0-15.0 %Platelet Ofwza034340-406 10 3/uLMean Platelet Kjvftp09.09.5- 13.5 fLNeutrophils Percent Auto63.743.0-75.0 %Lymphocytes Percent Auto25.720.5- 60.0 %Monocytes Percent Auto7.61.7-12.0 %Eosinophils Percent Auto2.50.9-7.0 % Basophils Percent Auto0.30.2-2.0 %Immature Granulocytes Pct Auto0.20.0-0.5 % Neutrophils Absolute Auto5.71.4-6.5 10 3/uLLymphocytes Absolute Auto2.31.2-3.8 10 3/uLMonocytes Absolute Auto0.70.3-0.8 10 3/uLEosinophils Absolute Auto0.20.0- 0.7 10 3/uLBasophils Absolute Auto0.00.0-0.1 10 3/uLImmature Granulocytes Abs Auto0.020.00-0.03 10 3/uLPerforming Lab:see note - [facility] LB IRON AND TIBC (Not yet reviewed by provider) Interpretation: Performing Lab: Notes/Report: [facility] ,Iron48.050.0-170.0 ug/dLTotal Iron Binding Okkajxyn145.0250.0-450.0 ug/dL Percent Iron Ueqynotpmc85.8Performing Lab[facility] (Not yet reviewed by provider) Interpretation: Performing Lab: Notes/Report: [facility] ,Qvpyjmtn996.08.0-252.0 ng/mLPerforming Lab:[facility] LBVITAMIN D 25 [place] (Not yet reviewed by provider) Interpretation: Performing Lab: Notes/Report: [facility] ,Vitamin D40.9 <20 ng/mL Vit D deficient 20-<30 ng/mL Vit D insufficient 30-100 ng/mL Vit D sufficient >100 ng/mL Potential Toxicity Performing Lab:see note - [facility] LBVitamin B12 (Not yet reviewed by provider) Interpretation: Performing Lab: Notes/Report: [facility] ,Vitamin [id number] pg/mL Falsework Builder: Harry Rodriguez PhD, Phone: [phone] Performed at: [facility] Lab[address] [id number] Performing Lab[facility] LBPROF CHEM 8 (BAS METB) (Not yet reviewed by provider) Interpretation: Performing Lab: Notes/Report: [facility] ,Btrfsk559347-153 mmol/LPotassium3.33.5-5.1 mmol/IBshezdnh99035-925 mmol/LCarbon Bwzszfr63.221.0-32.0 mmol/LAnion Gap18.8Rvstnpm88412-117 mg/dLBlood Urea Upmwegom35.07.0-18.0 mg/dLCreatinine0.920.55-1.02 mg/dLEstimated GFR ( Regina>60>=60 mL/min/1.73m 2Estimated GFR (Non- Susanne>60>=60 mL/min/1.73m 2BUN Creatinine Ratio19.6Wghaoas4.48.5-10.1 mg/dLPerforming Lab:see note - [facility] LBVITAMIN D 25 [place] (Not yet reviewed by provider) Interpretation: Performing Lab: Notes/Report: [facility] ,Vitamin D40.8 >100 ng/mL Potential Toxicity <20 ng/mL Vit D deficient 20-<30 ng/mL Vit D insufficient 30-100 ng/mL Vit D sufficient Performing Lab:see note - [facility] LBVitamin B12 (Not yet reviewed by provider) Interpretation: Performing Lab: Notes/Report: [facility] ,Vitamin [id number] pg/mL Performed at: [facility] Falsework Builder: Harry Rodriguez PhD, Phone: [phone] [address], [place] [phone] Performing Lab[facility] LBLAB TESTING (Not yet reviewed by provider) Interpretation: Performing Lab: Notes/Report: [id number] Ferritin [facility] ,Miscellaneous TestCOMMENT. Ferritin 730 [H ] ng/mL CB Performed at: [facility] Test Ordered: [id number] Ferritin Reference Range: 15-[address] [place] [id number] Falsework Builder: Harry Rodriguez PhD, Phone: [phone] Performing Lab:see [facility] LBIRON AND TIBC (Not yet reviewed by provider) Interpretation: Performing Lab: Notes/Report: [facility] ,Iron68.050.0-170.0 ug/dLTotal Iron Binding Donqwrcp196.0250.0-450.0 ug/dL Percent Iron Xzkoacdsfy20.1Performing Lab:see noteML - [facility] LB FOLATE (Not yet reviewed by provider) Interpretation: Performing Lab: Notes/Report: [facility] ,Fdbxdy92.008.60-58.90 ng/mLPerforming Lab:see noteML - [facility] LB CBC AUTO DIFF (Not yet reviewed by provider) Interpretation: Performing Lab: Notes/Report: [facility] ,White Blood Count10.94.0-11.0 10 3/uLRed Blood Count5.204.20-5.40 10 6/uL Wwwchpptgf00.812.0-16.0 g/cVWuodfahvil38.336.0-48.0 %Mean Corpuscular Hasgym54.2 81.0-99.0 fLMean Corpuscular Gppzwttpfx10.526.7-34.0 pgMean Corpuscular HGB Conc 33.429.9-35.2 g/dLRed Cell Distribution Width14.611.0-15.0 %Platelet Lzsti386 150-450 10 3/uLMean Platelet Zwsuem75.39.5-13.5 fLNeutrophils Percent Auto56.9 43.0-75.0 %Lymphocytes Percent Auto34.720.5-60.0 %Monocytes Percent Auto6.01.7- 12.0 %Eosinophils Percent Auto1.60.9-7.0 %Basophils Percent Auto0.30.2-2.0 % Immature Granulocytes Pct Auto0.50.0-0.5 %Neutrophils Absolute Auto6.21.4-6.5 10 3/uLLymphocytes Absolute Auto3.81.2-3.8 10 3/uLMonocytes Absolute Auto0.70.3-0.8 10 3/uLEosinophils Absolute Auto0.20.0-0.7 10 3/uLBasophils Absolute Auto0.00.0- 0.1 10 3/uLImmature Granulocytes Abs Auto0.050.00-0.03 10 3/uLPerforming Lab:see noteML - [facility] LBVITAMIN D 25 [place] (Not yet reviewed by provider) Interpretation: Performing Lab: Notes/Report: [facility] ,Vitamin D44.7 20-<30 ng/mL Vit D insufficient 30-100 ng/mL Vit D sufficient >100 ng/mL Potential Toxicity <20 ng/mL Vit D deficient Performing Lab:see noteML - [facility] LBPROF 14(COMP METB) (Not yet reviewed by provider) Interpretation: Performing Lab: Notes/Report: [facility] ,Cnhili422530-882 mmol/LPotassium3.73.5-5.1 mmol/YGdmmhmet25979-323 mmol/LCarbon Olhxian34.521.0-32.0 mmol/LAnion Gap12.5Dojusiw87933-398 mg/dLBlood Urea Riogbver05.07.0-18.0 mg/dLCreatinine0.840.55-1.02 mg/dLEstimated GFR ( Regina>60>=60 mL/min/1.73m 2Estimated GFR (Non- Susanne>60>=60 mL/min/1.73m 2BUN Creatinine Ratio17.0Javzubh9.78.5-10.1 mg/dLBilirubin Total0.30.2-1.0 mg/dL Aspartate Amino Rniafdsdfqg1471-49 U/LAlanine Hybxtootnksmlbur6529-61 U/L Alkaline Zutgozsxoag7940-262 U/LTotal Protein7.06.4-8.2 g/dLAlbumin Level3.53.4- 5.0 g/dLGlobulin3.5Albumin Globulin Ratio1.0Performing Lab:see noteML - [facility] LBIRON AND TIBC (Not yet reviewed by provider) Interpretation: Performing Lab: Notes/Report: [facility] ,Iron44.050.0-170.0 ug/dLTotal Iron Binding Cdaivyed401.0250.0-450.0 ug/dL Percent Iron Ioqoebobbe09.9Performing Lab:see noteML - [facility] LB FERRITIN (Not yet reviewed by provider) Interpretation: Performing Lab: Notes/Report: [facility] ,Lcqkxcrd902.08.0-252.0 ng/mLPerforming Lab:see note - [facility] LBCBC AUTO DIFF (Not yet reviewed by provider) Interpretation: Performing Lab: Notes/Report: [facility] ,White Blood Count8.74.0-11.0 10 3/uLRed Blood Count4.744.20-5.40 10 6/uL Mbldsucsmi72.512.0-16.0 g/qRBxfrbnapyh91.236.0-48.0 %Mean Corpuscular Gbfsfv88.9 81.0-99.0 fLMean Corpuscular Rphdzihqkw68.526.7-34.0 pgMean Corpuscular HGB Conc 32.829.9-35.2 g/dLRed Cell Distribution Width13.511.0-15.0 %Platelet Ccqsj816 150-450 10 3/uLMean Platelet Jiiywl59.19.5-13.5 fLNeutrophils Percent Auto65.1 43.0-75.0 %Lymphocytes Percent Auto28.020.5-60.0 %Monocytes Percent Auto5.01.7- 12.0 %Eosinophils Percent Auto1.30.9-7.0 %Basophils Percent Auto0.30.2-2.0 % Immature Granulocytes Pct Auto0.30.0-0.5 %Neutrophils Absolute Auto5.61.4-6.5 10 3/uLLymphocytes Absolute Auto2.41.2-3.8 10 3/uLMonocytes Absolute Auto0.40.3-0.8 10 3/uLEosinophils Absolute Auto0.10.0-0.7 10 3/uLBasophils Absolute Auto0.00.0- 0.1 10 3/uLImmature Granulocytes Abs Auto0.030.00-0.03 10 3/uLPerforming Lab:see noteML - [facility] LBXR ankle LT min 3V (Not yet reviewed by provider) Interpretation: Performing Lab: Notes/Report: Source Facility: [facility]-[address] [place] [address] [place] [address] XRay Report Signed Patient: PEE WHITEHEAD MR#: [id number] : 1980 Acct:[id number] Age/Sex: 43 / F ADM Date: 04/06/24 Loc: RAD Attending Dr: Joy Yung D.P.M. Ordering Physician: Joy Yung D.P.M. Date of Service: 04/06/24 Procedure(s): XR ankle LT min 3V Accession Number(s): [id number] cc: Joy Yung D.P.M.; Loreto Mcneal NP [place] [address] Patient Name: PEE WHITEHEAD MRN: [id number] date: 1980 Sex: F Assigned Patient Location: RAD Current Patient Location: ED.MAIN Accession/Order Number: [id number] Exam Date: 04/06/2024 11:15 Report Date: 04/08/2024 [...] Signed By: 04/08/24 1131 DD/ 1128 TD/TT: Customer Equipment Engineer:XR foot LT min 3V (Not yet reviewed by provider) Interpretation: Performing Lab: Notes/Report: Source Facility: [place] [address] XRay Report Signed Patient: PEE WHITEHEAD MR#: [id number] : 1980 Acct:[id number] Age/Sex: 43 / F ADM Date: 04/06/24 Loc: RAD Attending Dr: Joy Yung D.P.M. Ordering Physician: Joy Yung D.P.M. Date of Service: 04/06/24 Procedure(s): XR foot LT min 3V Accession Number(s): [id number] cc: Joy Yung D.P.M.; Loreto Mcneal NP [facility] [place] [id number] Patient Name: PEE WHITEHEAD MRN: [id number] date: 1980 Sex: F Assigned Patient Location: [facility] Current Patient Location: ED.MAIN Accession/Order Number: [id number] Exam Date: 04/06/2024 11:15 Report Date: 04/08/2024 [...] Signed By: 04/08/24 1131 DD/ 1128 TD/TT: Customer Equipment Engineer:Vitamin B12 (Not yet reviewed by provider) Interpretation: Performing Lab: Notes/Report: [facility] ,Vitamin [id number] pg/mL [address], [place] [id number] Performed at: [facility] Falsework Builder: Harry Rodriguez PhD, Phone: [phone] Performing Lab:see noteLC - [facility] LBTSH W/ REFLEX FT4 (Not yet reviewed by provider) Interpretation: Performing Lab: Notes/Report: [facility] ,TSH W/ REFLEX FT41.2720.358-3.740 uIU/mLPerforming Lab:see noteML - [facility] LBPROF CHEM 8 (BAS METB) (Not yet reviewed by provider) Interpretation: Performing Lab: Notes/Report: [facility] ,Zfmdwf746558-893 mmol/LPotassium3.93.5-5.1 mmol/ZHguehdnt69946-497 mmol/LCarbon Afqmupn45.121.0-32.0 mmol/LAnion Gap14.5Yzfecjl1173-699 mg/dLBlood Urea Nitrogen 25.07.0-18.0 mg/dLCreatinine0.830.55-1.02 mg/dLEstimated GFR ( Regina>60 >=60 mL/min/1.73m 2Estimated GFR (Non- Susanne>60>=60 mL/min/1.73m 2BUN Creatinine Ratio30.5Pupgokq4.98.5-10.1 mg/dLPerforming Lab:see noteML - [facility] LBIRON AND TIBC (Not yet reviewed by provider) Interpretation: Performing Lab: Notes/Report: [facility] ,Iron86.050.0-170.0 ug/dLTotal Iron Binding Vpuzqvwy058.0250.0-450.0 ug/dL Percent Iron Mcycewzgtl85.9Performing Lab:see noteML - [facility] LB CBC AUTO DIFF (Not yet reviewed by provider) Interpretation: Performing Lab: Notes/Report: [facility] ,White Blood Count10.14.0-11.0 10 3/uLRed Blood Count5.164.20-5.40 10 6/uL Urkfqevdcj70.112.0-16.0 g/vFNsrufebhai63.636.0-48.0 %Mean Corpuscular Wxdwwq68.4 81.0-99.0 fLMean Corpuscular Lexpdgzonc56.326.7-34.0 pgMean Corpuscular HGB Conc 31.629.9-35.2 g/dLRed Cell Distribution Width14.611.0-15.0 %Platelet Shssu668 150-450 10 3/uLMean Platelet Jbtglp59.09.5-13.5 fLNeutrophils Percent Auto70.8 43.0-75.0 %Lymphocytes Percent Auto21.420.5-60.0 %Monocytes Percent Auto5.81.7- 12.0 %Eosinophils Percent Auto1.10.9-7.0 %Basophils Percent Auto0.40.2-2.0 % Immature Granulocytes Pct Auto0.50.0-0.5 %Neutrophils Absolute Auto7.21.4-6.5 10 3/uLLymphocytes Absolute Auto2.21.2-3.8 10 3/uLMonocytes Absolute Auto0.60.3-0.8 10 3/uLEosinophils Absolute Auto0.10.0-0.7 10 3/uLBasophils Absolute Auto0.00.0- 0.1 10 3/uLImmature Granulocytes Abs Auto0.050.00-0.03 10 3/uLPerforming Lab:see noteML - [facility] LBVITAMIN D 25 [place] (Not yet reviewed by provider) Interpretation: Performing Lab: Notes/Report: [facility] ,Vitamin D38.6 30-100 ng/mL Vit D sufficient >100 ng/mL Potential Toxicity 20-<30 ng/mL Vit D insufficient <20 ng/mL Vit D deficient Performing Lab:see note - [facility] LBFERRITIN (Not yet reviewed by provider) Interpretation: Performing Lab: Notes/Report: [facility] ,Iwpvqzqf454.08.0-252.0 ng/mLPerforming Lab:see note - [facility] LBVitamin B12 (Not yet reviewed by provider) Interpretation: Performing Lab: Notes/Report: [facility] ,Vitamin [id number] pg/mL [address], [place] [phone] Performed at: [facility] Falsework Builder: Harry Rodriguez PhD, Phone: [phone] Performing Lab[facility] LBPROF 14(COMP METB) (Not yet reviewed by provider) Interpretation: Performing Lab: Notes/Report: [facility] ,Gturna132480-737 mmol/LPotassium4.03.5-5.1 mmol/DDqbqojqr14544-356 mmol/LCarbon Mryyniy81.421.0-32.0 mmol/LAnion Gap12.1Spvtydv48469-181 mg/dLBlood Urea Hjqsvvol32.07.0-18.0 mg/dLCreatinine0.670.55-1.02 mg/dLEstimated GFR ( Regina>60>=60 mL/min/1.73m 2Estimated GFR (Non- Susanne>60>=60 mL/min/1.73m 2BUN Creatinine Ratio26.6Yeahtup5.88.5-10.1 mg/dLBilirubin Total0.30.2-1.0 mg/dL Aspartate Amino Dsshukbcmbl6833-31 U/LAlanine Oymfnipwtjzqifrt0127-27 U/L Alkaline Ikyfdktbhyf11392-895 U/LTotal Protein7.46.4-8.2 g/dLAlbumin Level3.5 3.4-5.0 g/dLGlobulin3.9Albumin Globulin Ratio0.9Performing Lab:see noteML - [facility] LBIRON AND TIBC (Not yet reviewed by provider) Interpretation: Performing Lab: Notes/Report: [facility] ,Iron74.050.0-170.0 ug/dLTotal Iron Binding Ntfmrfbk341.0250.0-450.0 ug/dL Percent Iron Rnvoreikpo41.2Performing Lab:see note - [facility] LB FERRITIN (Not yet reviewed by provider) Interpretation: Performing Lab: Notes/Report: [facility] ,Kymhgezl268.08.0-252.0 ng/mLPerforming Lab:see noteML - [facility] LBCBC AUTO DIFF (Not yet reviewed by provider) Interpretation: Performing Lab: Notes/Report: [facility] ,White Blood Count9.44.0-11.0 10 3/uLRed Blood Count4.614.20-5.40 10 6/uL Qbbufmytfx44.212.0-16.0 g/oXYstszorrfi99.136.0-48.0 %Mean Corpuscular Lhhvse65.0 81.0-99.0 fLMean Corpuscular Wlfpkoopbe98.626.7-34.0 pgMean Corpuscular HGB Conc 32.929.9-35.2 g/dLRed Cell Distribution Width14.511.0-15.0 %Platelet Uqwiq025 150-450 10 3/uLMean Platelet Jojmqk41.79.5-13.5 fLNeutrophils Percent Auto62.4 43.0-75.0 %Lymphocytes Percent Auto28.520.5-60.0 %Monocytes Percent Auto6.01.7- 12.0 %Eosinophils Percent Auto2.40.9-7.0 %Basophils Percent Auto0.40.2-2.0 % Immature Granulocytes Pct Auto0.30.0-0.5 %Neutrophils Absolute Auto5.91.4-6.5 10 3/uLLymphocytes Absolute Auto2.71.2-3.8 10 3/uLMonocytes Absolute Auto0.60.3-0.8 10 3/uLEosinophils Absolute Auto0.20.0-0.7 10 3/uLBasophils Absolute Auto0.00.0- 0.1 10 3/uLImmature Granulocytes Abs Auto0.030.00-0.03 10 3/uLPerforming Lab:see note - [facility] LBVitamin B12 (Not yet reviewed by provider) Interpretation: Performing Lab: Notes/Report: [facility] ,Vitamin [id number] pg/mL Falsework Builder: Harry Rodriguez PhD, Phone: [phone] Performed at: [address] [id number] Performing Lab[facility] LBVITAMIN D 25 [place] (Not yet reviewed by provider) Interpretation: Performing Lab: Notes/Report: [facility] ,Vitamin D44.1 30-100 ng/mL Vit D sufficient <20 ng/mL Vit D deficient >100 ng/mL Potential Toxicity 20-<30 ng/mL Vit D insufficient [facility] LBFOLATE (Not yet reviewed by provider) Interpretation: Performing Lab: Notes/Report: [facility] ,Pzyivn45.308.60-58.90 ng/mLPerforming Lab:see note - [facility] LB Reason For Referral Reason Referral to Tame. Diagnosis 1 Pain in left ankle a nd joints of left foot (M25.572) Referral Organization [facility] (PODIATRY) Referring Provider First Name Joy Referring Provider Last Name Dilshad Referring Provider Speciality Podiatry Referred Provider Specialty Lashandacellmartinou s Referral Priority Routine Medications Medication SIG (Take, Route, Frequency, Duration) Notes Start Date End Date Status Jardiance ActiveVyvanseActiveLaMICtalActiveMeloxicam 15 MG1 tablet Orally Once a day; Duration: 30 daysUnknownLatudaActiveMeloxicam 15 MG1 tablet Orally Once a day; Duration: 30 days02/03/2023UnknownNexplanonActivetraZODone HClActiveFerrous SulfateActiveVentolin HFAActiveGabapentinActiveVitamin DActiveCyclobenzaprine HCl 10 MG1 tablet at bedtime as needed Orally Once a dayActiveDiclofenac Sodium 25 MG1 tablet as needed Orally Four times a day5ActiveOzempicActive Cyclobenzaprine HCl 10 MG1 tablet at bedtime as needed Orally Once a day 5ActivePepcidActiveActosActivePROzacActiveAllegraActivetiZANidine HCl Active Social History Tobacco Use: Social History Observation Description Date Details (start date - stop date) Never Smoker NA - NA Tobacco Use/Smoking Question Answer Notes Patient is a nonsmoker Problems Problem Type SNOMED Code ICD Code Onset Dates Problem Status W/U Status Risk Notes Problem Chronic pain (98869955) Other chronic ilan n (G89.29) ActiveconfirmedProblemLocalized, secondary osteoarthritis of the ankle and/or foot (332560440)Post-traumatic osteoarthritis, 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) Activeconfirmed Vital Signs Heart Rate 88 /min 04/06/2024 Gpkgtvylkij23.5 degrees Mtjsufbmoj04/05/0631Rnxugbfh88 %04/06/20245799Pwzsul05 in 04/06/2024 Encounters Encounter Location Date Provider Diagnosis [facility] [address] [place] [address] 06/14/2024 Lisa Fisher [facility] (PODIATRY)[address] [place] [address] [place] [address]/06/2024Peter HighlanderPost-traumatic osteoarthritis, left ankle and foot M19.172 ; Ingrowing nail L60.0 ; Tinea unguium B35.1 and Pain in left ankle and joints of left foot M25.572[facility] [address] [place] [address]/[facility] [address] [place] [address]/pogaetano [facility] [address] [place] [address]/patti Fisher [facility] [address] [place] [address]/ Lisa Fisher Assessments Encounter Date Diagnosis (ICD Code) Assessment Notes Treatment Notes Treatment Clinical Notes Section Notes 04/06/2024 Post-traumatic osteo arthritis, left ankle and foot (ICD-10 - M19.172) Patient presents today for corticosteroid injection with her last being nearly 5 months ago which she said alleviated her symptoms nearly entirely for over 3 months. After verbal consent the skin over the anterior medial ankle was prepared with Betadine followed by alcohol then an injection of 1 ccof Celestone was injected into the ankle joint via anterior medial approach. Patient tolerated the injection well and the injection site was dressed with a Band-Aid. Post injection instructions were provided. She will follow-up as needed and will call when additional injection is gjnoer1104/06/2024Ingrowing nail (ICD-10 - L60.0)Bilateral great toenails were debrided sharply without incident to patient satisfaction. [facility] She may continue to manage on her own with an emery board but will call if additional debridement is lekvkw8204/06/2024Tinea unguium (ICD-10 - B35.1)04/06/2024Pain in left ankle and joints of left foot (ICD-10 - M25.572) Plan Of Treatment Pending Test Test Name Order Date XR Ankle LT (3 views) * (164) 04/06/2024 XR Foot LT (3 views) * 04/06/2024 BMP w/GFR 12/21/2023 CBC AND AUTO DIFF * 12/21/2023 IRON PROFILE ([facility]) 12/21/2023 FERRITIN 12/21/2023 CBC AUTO DIFF 03/24/2024 CBC AUTO DIFF 07/21/2023 CBC AUTO DIFF 09/29/2023 CBC AUTO DIFF 09/15/2024 CBC AUTO DIFF 12/15/2024 CBC AUTO DIFF 08/18/2023 CBC AUTO DIFF 06/13/2024 CBC AUTO DIFF 02/01/2024 FERRITIN 02/01/2024 FERRITIN 06/13/2024 FERRITIN 12/15/2024 FERRITIN 03/24/2024 FERRITIN 09/29/2023 FERRITIN 07/21/2023 FOLATE 09/15/2024 FOLATE 12/15/2024 FOLATE 08/18/2023 FREE T4 08/18/2023 FREE T4 09/29/2023 IRON AND TIBC 09/29/2023 IRON AND TIBC 03/24/2024 IRON AND TIBC 07/21/2023 IRON AND TIBC 12/15/2024 IRON AND TIBC 09/15/2024 IRON AND TIBC 02/01/2024 IRON AND TIBC 06/13/2024 LAB TESTING 09/15/2024 PROF 14(COMP METB) 12/15/2024 PROF 14(COMP METB) 06/13/2024 PROF CHEM 8 (BAS METB) 09/15/2024 PROF CHEM 8 (BAS METB) 03/24/2024 TSH 09/29/2023 TSH 08/18/2023 VITAMIN D 25 [place] 06/13/2024 VITAMIN D 25 [place] 02/01/2024 VITAMIN D 25 [place] 09/29/2023 VITAMIN D 25 [place] 09/15/2024 VITAMIN D 25 [place] 03/24/2024 VITAMIN D 25 [place] 12/15/2024 XR foot LT min 3V 04/08/2024 XR ankle LT min 3V 04/08/2024 Vitamin B12 09/29/2023 Vitamin B12 08/18/2023 TSH W/ REFLEX FT4 03/24/2024 Vitamin B12 03/24/2024 Vitamin B12 09/15/2024 Vitamin B12 12/15/2024 Vitamin B12 06/13/2024 Vitamin B12 02/01/2024 Next Appt Details Provider Name:Lisa Fisher , 01/03/2025 09:00:00 AM, [address] [place], [address], Insurance Providers Payer Name Payer Address Payer Phone Subscriber Number Group Number Insured Name Patient Relationship to Insured Coverage Start Date Coverage End Date [employer] [place] [employer] [address] [place] [phone] [id number] Lyudmila Whitehead - patient is the [id number] 2013 Medications Administered Medication Instructions Date of Administration Dosage Notes Betamethasone Acetate 09/26/59114 mLCelestone 6mg/mL mLCelestone 6mg/mL mL Lidocaine HCl mLLidocaine HCl mL Medical (General) History Medical History History ICD Code 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
--- OUTSIDE RECORDS SUMMARY | 2024-12-28 06:50 | XMS_ITS | Clinical Summary ---
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 Name Role Phone Unavailable Primary Care Provider Unavailabl e Allergies Active AllergyReactionsCriticalityNoted DateCommentsCitalopram Hydrobromide Other: See Gqksqjgh55/15/2014 palpitations CephalexinHives,Other: See DnivzqbzNhuf19/15/2014 Shortness of breath, throat felt tight YvujqrilrBigiirj90/19/2024 Other Reaction(s): Other (See Comments), Unknown Reaction Hypoglycemia Hypoglycemia Medications MedicationSigDispense QuantityRefillsLast FilledStart DateEnd DateStatus ACIDOPHILUS/BULGARICUS (FLORANEX ORAL) Indications:Globus sensationTake by mouth once daily.Active Ferrous Sulfate 325 mg (65 mg iron) tablet Indications:Globus sensationTake 325 mg by mouth once daily.Active FLUoxetine 20 mg capsule Indications:Globus sensationTake 20 mg by mouth once daily.Active ALBUTEROL SULFATE (PROAIR HFA INHALATION) Indications:Globus sensationInhale as instructed as needed.Active fluticasone 50 mcg/actuation nasal spray Indications:Globus sensationUse 1 [place] in each nostril as needed.Active PYRIDOXINE HCL (VITAMIN B-6 ORAL) Indications:Globus sensationTake by mouth once daily.Active CYANOCOBALAMIN, VITAMIN B-12, (VITAMIN B-12 ORAL) Indications:Globus sensationTake by mouth once daily.Active MULTIVIT &MINERALS/FERROUS FUM (MULTI VITAMIN ORAL) Indications:Globus sensationTake by mouth once daily.Active DIPHENHYDRAMINE HCL (BENADRYL ORAL) Indications:Globus sensationTake by mouth as needed.Active etonogestrel subdermal implant 68 mg (NEXPLANON) Indications:Globus rvktadpwa36 mg by SUBDERMAL route one time only. Left arm Active ascorbic acid, vitamin C, (VITAMIN C) 500 mg tablet Take 500 mg by mouth two times a day.Active calcium carbonate-vitamin D3 600 mg-12.5 mcg (500 unit) cap Take 2 capsules by mouth once daily.5Active cholecalciferol (VITAMIN D3) 5,000 unit tab Take 1 tablet by mouth once daily.5Active lamoTRIgine (LAMICTAL) 200 mg tablet Take 200 mg by mouth.02/13/2019Active LINZESS 290 mcg capsule Take 290 mcg by mouth.Active lisdexamfetamine (VYVANSE) 70 mg capsule Take 70 mg by mouth every morning.01/09/2022ctive metoprolol succinate ER (TOPROL XL) 25 mg 24 hr tablet Take 25 mg by mouth./ctive lurasidone (LATUDA) 120 mg tablet Take 120 mg by mouth.04/17/2020ctive rosuvastatin (CRESTOR) 10 mg tablet Take 10 mg by mouth.Active MOUNJARO 2.5 mg/0.5 mL pen injector Inject 2.5 mg subcutaneously.5Active VITAMIN B COMPLEX PO Take 1 tablet by mouth once daily.01/16/2020Active empagliflozin (JARDIANCE) 25 mg tablet Take 25 mg by mouth once daily.5Active docusate sodium (COLACE) 100 mg capsule Take 300 mg by mouth once daily.3Active diclofenac, EC, (VOLTAREN) 75 mg EC tablet Take 75 mg by mouth.11/16/2023ctive diclofenac (VOLTAREN) 1 % topical gel APPLY 2 (TWO) grams TO THE AFFECTED AREA(S) FOUR TIMES DAILY NEEDED FOR PAIN 5Active cyclobenzaprine (FLEXERIL) 10 mg tablet Take 10 mg by mouth.4Active montelukast (SINGULAIR) 10 mg tablet Take 10 mg by mouth every evening.Active Encounters DateTypeDepartmentCare HxybNgelctwzsne77/18/2025 1:40 PM EDTOffice Visit Orthopaedic Surgery [facility] [address] [place] [address] Diego Kang MD Chronic pain of right ankle (Primary Dx)11/17/2024 12:20 PM EDT - 11/17/2024 11:59 PM EDTHospital Encounter Xray [facility] [address] [place] [address] Pain in joint involving ankle and foot, unspecified laterality [M25.579] Discharge Disposition: Home11/15/2024Orders Only Orthopaedics [address] [address] Diego Kang MD Pain in joint involving ankle and foot, unspecified laterality (Primary Dx) 10/26/2024Orders Only [facility] [address] [place] [address] Kait Barrientos, DPM Pain (Primary Dx)from Last 3 Months Social History Tobacco UseTypesPacks/DayYears UsedDateSmoking Tobacco: NeverAlcohol UseStandard Drinks/WeekCommentsNo0 (1 standard drink = 0.6 oz pure alcohol)Area Deprivation IndexAnswerDate RecordedNational Score (1-100), lower number is lower risk93 11/15/2024State Score (1-10), lower number is lower mgyu59011/15/2024Data from: https://www.neighborhoodatlas.medicine.[facility].edu/. Last address used for [address] [facility]11/15/2024CommentsUnknownSex and Gender InformationValueDate RecordedSex Assigned at BirthNot on fileLegal SexFemale 06/01/2013 6:02 PM EDTGender IdentityNot on fileSexual OrientationNot on file Last Filed Vital Signs Vital SignReadingTime TakenCommentsBlood Wjdipcne122/68007/14/2013 10:16 AM EDT Kkucx140707/14/2013 10:16 AM GBYOkjkxqywsjo11.5 ??C (97.7 ??F)07/14/2013 10:16 AM EDTRespiratory Rate--Oxygen Tlkrxngkkx971%07/14/2013 10:16 AM EDTInhaled Oxygen Concentration--Weight--Height--Body Mass Index-- Plan of Treatment Health MaintenanceDue DateLast DoneCommentsAnxiety Jhhcsjwdd08/26/1999Depression Bafjhdzvj81/26/1999HIV Jdmzuzvlx20/26/1999Hepatitis C Xwhwyysih81/26/1999 Cervical Cancer Ebepbswgz88/26/2002HPV Vaccine (1 - 3-dose SCDM series) 09/25/2007Mammogram Onaofypxt13/15/383135/, 11/07/2021ovid-19 Vaccine ( season)/10/2021, 12/26/2020, 06/09/2020, Additional history existsInfluenza Vaccine (#1)/08/2023, 12/22/2022, 12/23/2021, Additional history existsDTaP,Tdap,Td Vaccine (2 - Td or Tdap) /05/2021, 09/02/2021Hepatitis B GpksuyuAvieceuyx06/25/2024, 12/22/2022, 06/23/2022 Procedures Procedure NamePriorityDate/TimeAssociated DiagnosisCommentsXR ANKLE GENERAL 3V AP/LAT/OBL QBKQTDinglte22/18/2025 12:44 PM EDT Pain in joint involving ankle and foot, unspecified laterality from Last 3 Months Results * XR ANKLE GENERAL 3V AP/LAT/OBL BILATERAL (11/17/2024 12:44 PM EDT)Anatomical RegionLateralityModalityAnkleOtherSpecimen (Source)Anatomical Location / LateralityCollection Method / VolumeCollection TimeReceived Time11/17/2024 12:44 PM EDT Impressions 11/18/2024 12:09 PM EDT IMPRESSION: Moderate degenerative changes left ankle. Mild degenerative changes right ankle. Circulation Tender: DAVIDA ?? Transcribe Date/Time: Nov 18 2024 12:03P Dictated by : MARC HAHN MD This examination was interpreted and the report reviewed and electronically signed by: MARC HAHN MD on Nov 18 2024 12:07PM ??EST Narrative 11/18/2024 12:09 PM EDT * * *Final Report* * * DATE OF EXAM: Nov 17 2024 12:44PM ?? M2X ?? 5553 ??- ??XR ANKLE 3V AP/LAT/OBL STELLA ?? / PROCEDURE REASON: Pain in joint involving ankle and foot, unspecified laterality ? * * * * Physician Interpretation * * * * HISTORY: ??Pain in joint involving ankle and foot, unspecified laterality ??. ??Patient complains of bilateral ankle pain TECHNIQUE: XR ANKLE 3V AP/LAT/OBL STELLA COMPARISON: None RESULT: Moderate degenerative changes in the left ankle with joint space narrowing and small osteophytes. ??Remote healed left distal fibular fracture. ??Mild degenerative changes in the right ankle with small osteophytes. ??Corticated ossification at the right lateral malleolar tip compatible with remote trauma. No other significant abnormality. Procedure Note Provider, [facility] - 11/18/2024 * * *Final Report* * [...] left ankle. Mild degenerative changes right ankle. Circulation Tender: DAVIDA Transcribe Date/Time: Nov 18 2024 12:03P Dictated by : MARC HAHN MD This examination was interpreted and the report reviewed and electronically signed by: MARC HAHN MD on Nov 18 2024 12:07PM EST Authorizing ProviderResult TypeResult StatusMark Ana Araizatz MDRAD-PAMAFinal Result from Last 3 Months Insurance
--- OUTSIDE RECORDS SUMMARY | 2024-12-28 06:50 | XMS_ITS | CCD ---
Author Organization [facility] Care Team Providers Care Breaker Oiler Name Role Phone Juan Ramon Jean Unavailable [...] able RUMSCHLAG, SHAWNA K Referring Unavailable SERVICES, [facility] Unava ilable Fredis HYLTON - JACK STRIP ASSEMBLER, Davie [facility] ider SERVICES, [facility] Primary Care Unava ilable SHAMMO, LUZ [...] Care Unavailable JORGE, LISA Referring Unavailable SERVICES, [facility] Primary Care Unava ilable GAURAV SELLERS Attending Unavailable RUMSCHLAG, SHAWNA K Referring Unavailable RUMSCHLAG, SHAWNA K Primary Care Unavailable Zully JACK STRIP ASSEMBLER, Key Unavailable Rumschlag DO, Shawna Primary Care Provider Shammo [facility]-, Luz Maria T Primary Care Provider [phone] Mio Marroquin DO Attending Provider Unavailab le Rumschlag DO, Shawna K Primary Care Provider [phone] Services, Pending Sale To [facility] Primary Care Provider Sasha Santos DO Unavailable Shammo [facility], Luz Maria T Primary Care Provider Mio Marroquin DO Attending Provider Unavailab Shira Crwoley DO Attending Provider Davie Mcneal APRN Primary Care Provide r Shira Cardoso DO Unavailable ANA PAULA INGRAM Admitting Unavailable ANA PAULA INGRAM Attending Unavailable SERVICES, [facility] Primary Care Unava ilable Services, Pending Sale To [facility] Primary Care Provider Jan Garg APRN Attending Provider Davie Mcneal Primary Care Unavailab Shira Crowley Admitting Unavailable Shira Cardoso Attending Unavailable Mio Marroquin Admitting Unavailable Mio Marroquin Attending Unavailable Luz Maria Driver Primary Care Unavailable Davie Mcneal Primary Care Unavailab le Shira Cardoso Admitting Unavailable Angel, Shira Attending Unavailable Shira Cardoso Admitting Unavailable Angel, Shira Attending Unavailable Davie Mcneal Primary Care Unavailab le Myerholbrayan HYLTON, Davie Chase Primary Care Provide r Shira Cardoso DO Attending Provider Sasha Santos DO Attending Provider Bk DALE, Andrius Stoddard Attending Unavailable Giedraitis , Andrius Arlyn Attending Unavailable Giedraitis , Andrius Vytautjosr Attending Unavailable Giedraitis , Andrius Vytautjosr Attending Unavailable Tremains , Ana Paula Powers Attending Unav ailable Gimansoor DALE, Andrius Arlyn Attending Unavailable Myerholtz Davie HYLTON Primary Care Provide r Shira Cardoso DO Attending Provider [phone] Jan Garg APRN Attending Provider CARLOS ENRIQUE SANCHEZ Referring Unavailab DAVID Crawford Attending Unavailable KENZIE VASQUEZ Referring Unavailable CARLOS ENRIQUE JACKSON Attending Unavailable KENZIE VASQUEZ Attending Unavailable CLEO ZAMBRANO Attending Unavailable CLEO ZAMBRANO Referring Unavailable ROEL GARBER Attending Unavailable SHIRA CARDOSO Attending Unavailable SASHA SANTOS Attending Unavailable ROEL GARBER Attending Unavailable SHIRA CARDOSO Attending Unavailable ROEL GARBER Attending Unavailable ROEL GARBER Attending Unavailable CLEO ZAMBRANO Attending Unavailable SHIRA CARDOSO Attending Unavailable SASHA SANTOS Referring Unavailable SHIRA CARDOSO Attending Unavailable SASHA SANTOS Referring Unavailable SHIRA CARDOSO Attending Unavailable SHIRA CARDOSO Attending Unavailable ROEL GARBER Attending Unavailable SHIRA CARDOSO Attending Unavailable CLEO ZAMBRANO Attending Unavailable [facility] Primary Care Provider MYERHOLTZ, DAVIE Primary Care Unavailable TIRSO JUNIOR Attending Unavailable MARTIR STOVALL Admitting Unavailable MARTIR STOVALL Attending Unavailable MYERHOLTZ, DAVIE Primary Care Unavailable MYERHOLTZ, DAVIE Primary Care Unavailable LUCAS PERKINS Referring Unavailable RUMSCHLAGSHAWNA Referring Unavailable MYERHOLTZ, DAVIE Primary Care Unavailable MYERHOLTZ, DAVIE Primary Care Unavailable LUCAS PERKINS Referring Unavailable RUDDY VALENCIA Referring Unavailable MYERHOLTZ, DAVIE Primary Care Unavailable MYERHOLTZ, DAVIE Primary Care Unavailable MARTIR STOVALL Referring Unavailable SHAWNA MCFADDEN Referring Unavailable MYERHOLTZ, DAVIE Primary Care Unavailable MARTIR STOVALL Referring Unavailable MYERHOLTZ, DAVIE Primary Care Unavailable MYERHOLTZ, DAVIE Primary Care Unavailable MYERHOLTZ, DAVIE Primary Care Unavailable BENJA WALKER Attending Unavailable Allergies Allergy ClassificationReported Allergen(s)Allergy TypeDate of OnsetReaction(s) FacilityCephalosporins (antibiotic) (2 sources)CephalexinDrug Mrbtaxl18-01-2947HtczkCXSHealthSouth Medical Center Serotonin Reuptake Inhibitors (SSRIs) (2 sources)CitalopramDrug Cmmkmzl97-67-7649HmzbvALAHealthSouth Medical Center (20 sources)cephalexin; Translations: [Keflex]Drug Zendnjv46-81-3824mywzbChillicothe [facility] Repository (5 sources)citalopram; Translations: [CeleXA]Drug Nsphqeb99-46-2206ASWFormerly [facility], [facility] Repository (20 sources)Cephalexin; Translations: [CEPHALEXIN]Drug Dmcgijz54-68-6889GzbrjBMXHealthSouth Medical Center Work Phone: (20 sources)Citalopram; Translations: [CITALOPRAM]Drug Ybgncxs95-28-8473SyfahCHI St. [facility] (5 sources)metFORMINDrug AllergyUnknownNorth deskwolf Other (20 sources)metFORMIN; Translations: [METFORMIN]Drug Kwhzjkp73-30-8073Ehbfmth, Unknown Reaction, hypoglycemiaProMedica RepositoryComment on above: bottoms out to under 40 (20 sources)Metformin And RelatedPropensity to adverse reactions to drug 89-27-2882Tpktu (See Comments)[facility] (20 sources)POISON DEVORAH EXTRACT; Translations: [POISON DEVORAH EXTRACT]Propensity to adverse reactions to drug (disorder)59-37-3493SrkFtaafd Repository (1 source)CephalexinDrug Uzwwajz88-74-7795NqpopgwnsOhiohealth [facility] Repository (1 source)CitalopramDrug Fcqgejn45-74-9427PrkllmxypOhiohealth [facility] Hospital Repository (1 source)metFORMINDrug Qnpwdvd98-07-3191LmiyqhzwbOhiohealth [facility] Hospital Repository (2 sources)Citalopram; Translations: [CITALOPRAM HYDROBROMIDE]Drug Allergy 66-52-3681BvqkjbkjbTrinity Health System Repository (1 source)BIGUANIDES; Translations: [BIGUANIDES]Propensity to adverse reactions to drug (disorder)64-93-1001JrgkjobpsjSumma [facility] Repository Medications Current Medications MedicationDrug Class(es)DatesSig (Normalized)Sig (Original)acetaminophen 325 mg / HYDROcodone bitartrate 5 mg oral tablet (7 sources)Opioid AgonistStart: 21-55-6317gksl 1 tablet by mouth every six hours as needed for painHydrocodone-Acetaminophen 5-325 mg tablet Active 1 TAB PO Every 6 hours as needed for pain 14 September 21, 2024 Complies with drug therapy acetaminophen 325 mg / oxyCODONE hydrochloride 5 mg oral tablet (4 sources)Opioid AgonistStart: 09-21-2024 End: 51-63-7803kooAEWFFO-acetaminophen (PERCOCET) 5-325 MG per tablet Indications: Flank pain Take 1 tablet by mouth every 6 hours as needed for Pain for up to 3 days. Intended supply: 3 days. Take lowest dose possible to manage pain Max Daily Amount: 4 tablets 12 tablet 11/17/2024 11/20/2024 Dgkryciew581982 200 actuat albuterol 0.09 mg/actuat metered dose inhaler (20 sources)beta2-Adrenergic AgonistStart: 04-86-7893fmsm 2 puff(s) by mouth every six hours as needed for wheezingalbuterol (PROVENTIL HFA;VENTOLIN HFA) 90 mcg/actuation inhaler Indications: Obstructive sleep apnea syndrome INHALE 2 PUFFS BY MOUTH EVERY 6 HOURS NEEDED FOR WHEEZING 18 g 07/16/2020 Activetake 1 puff(s) by inhalation every four hoursalbuterol HFA (Ventolin HFA) 90 mcg/act inhaler Inhale 1 puff every 4 (four) hours if needed Activetake 2 puff(s) by inhalation every four hours as needed for wheezingalbuterol sulfate HFA 108 (90 Base) MCG/ACT inhaler Inhale 2 puffs into the lungs every 4 hours as needed for Wheezing ActiveAlbuterol PRN ActiveAlbuterol 90 mcg/actuation aerosol (6 sources)Start: 39-61-2617gfeb 90 ug by inhalation every four hours as needed for wheezingAlbuterol 90 mcg/actuation aerosol Active 90 MCG INHALATION Every 4 hours as needed for wheezing July 27, 2024 12:00am Complies with drug therapy Start: 56-68-5338tpzl 90 ug by inhalation every four hours as needed for wheezingAlbuterol 90 mcg/actuation aerosol Active 90 MCG INHALATION Every 4 hours as needed for wheezing July 27, 2024 12:00amAllegra Allergy 180 MG (6 sources)take 1 tablet by mouth once dailyAllegra Allergy 180 MG 1 tablet Swallow whole with water; do not take with fruit juices. Orally Once a day Activeascorbic acid 500 mg oral tablet (20 sources)Vitamin CStart: 63-84-5566ldpz 1 tablet by mouth in the morning, then take 1 tablet by mouth at bedtimeascorbic acid (VITAMIN C) 500 mg tablet Take 1 tablet (500 mg total) by mouth in the morning and 1 tablet (500 mg total) before bedtime. 02/24/2023 ActiveStart: 92-88-0855fdqq 1 tablet by mouth in the morningascorbic acid (Vitamin C) 500 MG tablet Take 500 mg by mouth in the morning and 500 mg before bedtime. 02/24/2023 ActiveStart: 02-24-2023 End: 76-88-1518umyf 1 tablet by mouth once dailyAscorbic Acid (Vitamin C) (Vitamin C) 500 mg tablet Discontinued 500 MG PO Daily May 20, 2023 12:00am May 21, 2023 10:34amB Complex Vitamins (vitamin B complex) tablet (20 sources)Start: 98-55-6892dzib 1 tablet by mouth once dailyB Complex Vitamins (vitamin B complex) tablet Take 1 tablet by mouth Daily 04/20/2024 Active bifidobacterium animalis [id number] unt / lactobacillus acidophilus [id number] unt oral capsule (12 sources)take 1 capsule by mouth once dailyprobiotic (ALIGN/RISAQUAD) CAPS capsule Take 1 capsule by mouth daily ALIGN Activebifidobacterium infantis 4 mg oral capsule (20 sources)Start: 01-07-2023 End: 56-62-3268xewf 1 capsule by mouth once dailyProbiotic Product (Align) capsule Take 1 capsule by mouth Daily 02/16/2023 Activeblood-glucose meter (TRUE METRIX GLUCOSE METER) misc (16 sources)Start: 67-37-2202enfea-glucose meter (TRUE METRIX GLUCOSE METER) misc use to test BLOOD SUGAR TWICE DAILY 1 each 06/17/2018 ActiveStart: 02-66-5020adepw-glucose meter (TRUE METRIX GLUCOSE METER) misc use to test BLOOD SUGAR TWICE DAILY 1 each 0 06/17/2018 ActiveCalcium Carbonate-Vit D-Min (Calcium 1200) 7438-6909 MG-UNIT chewable tablet (10 sources)Start: 11-02-2024 End: 78-24-2414Avntreu Carbonate-Vit D-Min (Calcium 1200) 5359-3183 MG-UNIT chewable tablet Indications: Osteopenia, unspecified location Chew 1,200 mg Daily 90 tablet 3 11/02/2024 11/02/2025 Activecalcium chloride 0.0014 meq/ml / potassium chloride 0.004 meq/ml / sodium chloride 0.103 meq/ml / sodium lactate 0.028 meq/ml injectable solution (1 source)Start: 49-84-5783NekohKOSdtq, at 100 mL/hr, CONTINUOUS, Starting on Thu11/15/24 at 1530cetirizine hydrochloride 10 mg oral tablet (20 sources)Histamine-1 Receptor AntagonistStart: 78-79-0742fndt 1 tablet by mouth once dailycetirizine (ZyrTEC) 10 mg tablet TAKE 1 TABLET BY MOUTH DAILY 30 tablet 5 02/06/2020 Activecholecalciferol 0.125 mg oral tablet (20 sources)Vitamin DStart: 02-98-9140sgdk 1 tablet by mouth once daily in the morningCholecalciferol (Vitamin D3) (Vitamin D3) 125 mcg (5,000 unit) tablet Active 125 MCG PO Every morning July 27, 2024 12:00am Complies with drug therapyStart: 02-24-2023 End: 23-13-4399jopl 1 capsule by mouth once dailycholecalciferol (Vitamin D-3) 50 MCG (1999 UT) capsule Take 2,000 Units by mouth Daily 02/24/2023 ActiveStart: 22-42-4149jhul 1 capsule by mouth in the morningcholecalciferol (Vitamin D-3) 50 MCG (2000 UT) capsule Take 2,000 Units by mouth in the morning. 02/24/2023 Activetake 1 capsule by mouth every twenty-four hoursVitamin D3 50 MCG (2000 UT) 1 capsule Orally Once a day Not-Taking/PRNCHOLECALCIFEROL, VITAMIN D3, ORAL (5 sources)Start: 04-15-8770pcdm 5000 [IU] by mouth in the morning CHOLECALCIFEROL, VITAMIN D3, ORAL Take 5,000 Units by mouth in the morning. 04/09/2021 Activeciclopirox 7.7 mg/ml topical cream (20 sources)Start: 73-81-0200Kirghxuomx 0.77 % cream Active 1 APPLIC TOPICAL Daily as needed for yeasty rash July 27, 2024 12:00am Complies with drug therapyStart: 30-23-3872yxckwqnfrj (Loprox) 0.77 % cream Indications: Rash and other nonspecific skin eruption APPLY TO THEAFFECTED AREA(S) TWICE DAILY 90 g 04/21/2024 ActiveStart: 42-78-8033gvzrkisito (Loprox) 0.77 % cream Indications: Rash and other nonspecific skin eruption APPLY TO THEAFFECTED AREA(S) TWICE DAILY 90 g 03/17/2024 Activeclindamycin 300 mg oral capsule (8 sources)Lincosamide AntibacterialStart: 08-02-2024 End: 49-52-9586ekxs 1 capsule by mouth in the morning, then take 1 capsule by mouth in the evening, then take 1 capsule by mouth at bedtimeclindamycin (Cleocin) 300 MG capsule Indications: Itching with irritation , Nexplanon removal Take 1 capsule (300 mg) by mouth in the morning and 1 capsule (300 mg) in the evening and 1 capsule (300 mg) before bedtime. Do all this for 7 days. 21 capsule 08/02/2024 08/09/2024 ActiveStart: 10-12-2021 End: 07-07-7243wjkgsjtjhxg (CLEOCIN) 150 MG capsule Take 3 capsules by mouth in the morning and 3 capsules at noonand 3 capsules before bedtime. Do all this for 10 days. 90 capsule 0 10/12/2021 10/22/2021 ActiveStart: 10-12-2021 End: 76-88-7010tkxvenikodw (CLEOCIN) capsule 450 mgcyclobenzaprine hydrochloride 10 mg oral tablet (20 sources)Muscle RelaxantStart: 05-81-7195askjsagnyxodhfr (Flexeril) 10 MG tablet Take 10 mg by mouth as needed in the morning and 10 mg as needed at noon and 10 mg as needed in the evening for muscle spasms. 11/16/2023 ActiveStart: 66-54-1708pjffbbdmhymjrmz (Flexeril) 10 MG tablet Take 10 mg by mouth as needed in the morning and 10 mg as needed at noon and 10 mg as needed in the evening for muscle spasms. 11/16/2023 Activetake 1 tablet by mouth three times daily as needed for muscle spasmscyclobenzaprine (FEXMID) 7.5 MG tablet Take 1 tablet (7.5 mg total) by mouth 3 (three) times a day as needed for muscle spasms. ActiveCyclobenzaprine HCl (FLEXERIL PO) Take by mouth in the morning and at bedtime Take 2 at night and 1every morning Activediclofenac sodium 0.01 mg/mg topical gel (20 sources)Nonsteroidal Anti-inflammatory DrugStart: 59-92-9899Fgfmvesmsv Sodium (Arthritis Pain (Diclofenac)) 1 % gel Active 2 GM TOPICAL Twice daily July 27, 2024 12:00am Complies with drug therapyStart: 17-99-8032Qczzwojwrk Sodium (Arthritis Pain (Diclofenac)) 1 % gel Active 2 GM TOPICAL Twice daily July 27, 2024 12:00amStart: 80-50-1272fesdlswfct (Voltaren) 75 MG EC tablet Take 75 mg by mouth as needed in the morning and 75 mg as needed in the evening. 11/16/2023 ActiveDiclofenac Sodium (VOLTAREN PO) Take by mouth in the morning and at bedtime One every morning and two every night Activedocusate sodium 100 mg oral capsule (20 sources)Start: 01-07-2023 End: 66-60-4844dririmjh sodium (COLACE) 100 mg capsule 01/07/2023 ActiveStart: 49-08-0705sapy 3 capsules by mouth every twenty-four hoursDocusate Sodium 100 MG 3 CAPSULES Orally Once a day for 30 days Dec, ActiveDULoxetine 60 mg delayed release oral capsule (20 sources)Serotonin and Norepinephrine Reuptake InhibitorStart: 33-06-3844honx 1 capsule by mouth once daily in the morningDuloxetine 60 mg capsule,delayed release(DR/EC) Active 60 MG PO Every morning October 15, 2023 12:00am Complies with drug therapyStart: 56-92-2243sjdj 30 mg by mouth once dailyDuloxetine Active 30 MG PO Daily May 21, 2023 12:00amStart: 03-31-2023 End: 30-05-3956lfqb 1 capsule by mouth in the morningDULoxetine (CYMBALTA) 30 mg capsule Take 1 capsule (30 mg total) by mouth in the morning. 30 capsule 3 04/30/2023 Activetake 2 capsules by mouth in the morningDULoxetine (Cymbalta) [address] capsule Take 60 mg by mouth in the morning and 60 mg before bedtime.Do not crush or chew. Activefamotidine 40 mg oral tablet (20 sources)Histamine-2 Receptor AntagonistStart: 91-44-0471kjvk 1 tablet by mouth twice dailyFamotidine 40 mg tablet Active 40 MG PO Twice daily August 08, 2024 12:00am Complies with drugtherapyStart: 05-20-2023 End: 32-09-5989dysn 1 tablet by mouth once dailyFamotidine 40 mg tablet Discontinued 40 MG PO Daily June 02, 2024 9:59am July 27, 2024 11:11am Start: 44-22-3985naht 1 tablet by mouth twice dailyfamotidine (PEPCID) 20 mg tablet TAKE 1 TABLET BY MOUTH TWICE DAILY 60 tablet 5 04/09/2020 Activetake 2 tablets by mouth once dailyfamotidine (PEPCID) 20 MG tablet Take 2 tablets by mouth daily Active2 ml fentaNYL 0.05 mg/ml injection (2 sources)Opioid AgonistStart: 76-19-8065Ubocn: 27-23-3373whvlddc gluconate 256 mg oral tablet (5 sources)ferrous gluconate (FERGON) 256 mg (28 mg iron) tablet Take 246 mg by mouth in the morning. Activeferrous sulfate 28 mg oral tablet (20 sources)Start: 11-02-2024 End: 15-58-8306gxek 1 tablet by mouth at mealtimeferrous sulfate 28 MG tablet Indications: Other osteoporosis without current pathological fracture , Other iron deficiency anemia Take 1 tablet (28 mg) by mouth in the morning. Take with meals. 30 tablet 11 11/02/2024 ActiveStart: 74-51-9510vvud 1 tablet by mouth once dailyFerrous Sulfate (Slow Release Iron) 140 mg (45 mg iron) tablet extended release Active 140 MG PO Daily July 27, 2024 12:00am Complies with drug therapyStart: 35-68-4079mwyb 1 tablet by mouth once dailyferrous sulfate 325 (65 FE) mg tablet TAKE 1 TABLET BY MOUTH DAILY 30 tablet 5 04/09/2020 Active fexofenadine hydrochloride 180 mg oral tablet (20 sources)Histamine-1 Receptor AntagonistStart: 57-70-7052xjtr 1 tablet by mouth once dailyfexofenadine (Jonathan) 180 MG tablet Take 180 mg by mouth Daily 02/24/2023 Activetake 1 tablet by mouth in the morningfexofenadine (JONATHAN) 60 mg tablet Take 1 tablet (60 mg total) by mouth in the morning. Activefluconazole 150 mg oral tablet (6 sources)Azole AntifungalStart: 42-11-8530bzgr 1 tablet by mouth once as neededFluconazole 150 mg tablet Active 150 MG PO Once as needed for yeast infection July 27, 2024 12:00am Complies with drug therapyFLUoxetine 60 mg oral tablet (20 sources)Serotonin Reuptake InhibitorStart: 03-02-1628lois 1 tablet by mouth in the morningFLUoxetine (PROzac) 60 MG tablet Take 1 tablet (60 mg total) by mouth in the morning. 07/14/2019 ActiveStart: 07-14-2019 End: 46-03-8375amep 1 capsule by mouth once dailyFluoxetine 40 mg capsule Discontinued 40 MG PO Daily May 20, 2023 12:00am October 15, 2023 9:28am take 3 capsules by mouth once dailyFLUoxetine (PROZAC) 20 MG capsule Take 3 capsules by mouth daily Activefluticasone propionate 0.05 mg/actuat metered dose nasal spray (20 sources)CorticosteroidStart: 69-59-7073edxy 1 spray(s) nasal route once daily as neededFluticasone Propionate 50 mcg/actuation spray,suspension Active 2 SPRAY INTRANASAL Daily as needed for allergy symptoms July 27, 2024 12:00am administer into each nostril Complies with drug therapyStart: 28-16-4981btul 2 spray(s) nasal route once dailyfluticasone propionate (FLONASE) 50 mcg/actuation nasal spray instill 2 (TWO) sprays in EACH nostril ONCE DAILY 16 g 07/16/2020 Activetake 1 spray(s) nasal route once dailyfluticasone (Flonase) 50 MCG/ACT nasal spray Administer 1 spray into each nostril 1 (one) time eachday at the same time ActiveFlonase PRN Activegabapentin 300 mg oral capsule (20 sources)Anti-epileptic AgentStart: 03-43-2060rhko 3 capsules by mouth twice dailyGabapentin 300 mg capsule Active 900 MG PO Twice daily July 27, 2024 12:00am Complies with drug therapyStart: 88-65-2001kxfujcnghb (Neurontin) 300 MG capsule Indications: Paresthesias 1 po 2-3 times a day. 90 capsule 2 03/31/2024 ActiveStart: 91-70-3953ollbphazlc (Neurontin) 300 MG capsule Indications: Paresthesias 1 po 2-3 times a day. 90 capsule 2 08/13/2023 ActiveStart: 05-21-2023 End: 71-34-4100uiup 3 capsules by mouth twice dailyGabapentin 100 mg capsule Discontinued 300 MG PO Twice daily May 21, 2023 10:21am July 27, 2024 11:13amStart: 00-20-4782taqy 300 mg by mouth twice dailyGabapentin Active 300 MG PO Twice daily May 21, 2023 10:21amStart: 10-14-2018 End: 57-42-1038pnkl 1 capsule by mouth twice dailyGabapentin 100 mg capsule Discontinued 100 MG PO Twice daily May 20, 2023 12:00am May 21, 2023 10:34amtake 3 capsules by mouth three times dailygabapentin (NEURONTIN) 100 MG capsule Take 3 capsules by mouth 3 times daily. Activetake 2 capsules by mouth every twenty-four hoursGabapentin 100 MG 2 CAPSULES Orally Once a day Active hydrocortisone 10 mg/ml / neomycin 3.5 mg/ml / polymyxin b 95521 unt/ml otic solution (1 source)Aminoglycoside Antibacterial, Polymyxin-class Antibacterial, CorticosteroidStart: 10-22-2021 End: 60-84-4865hnkusvuz-polymyxin-hydrocortisone (CORTISPORIN) 3.5-34971-[address] 4 drops into the left ear 3 times daily for 7 days Instill into left Ear TID x 7 days 10 mL 0 10/22/2021 10/29/2021 ActivehydrOXYzine hydrochloride 25 mg oral tablet (20 sources)AntihistamineStart: 81-01-3751yezp 1 tablet by mouth every four hours as neededhydrOXYzine (ATARAX) 25 MG tablet Take 1 tablet by mouth every 4 hours as needed for Itching 30 tablet 1 10/21/2017 Activeibuprofen 600 mg oral tablet (20 sources)Nonsteroidal Anti-inflammatory DrugStart: 63-61-4986yeev 1 tablet by mouth every six hoursibuprofen (ADVIL;MOTRIN) 600 MG tablet Take 1 tablet by mouth every 6 hours 30 tablet 11/15/2024 ActiveStart: 81-99-2561qurr 1 tablet by mouth four times daily as needed for painibuprofen (ADVIL;MOTRIN) 600 MG tablet Take 1 tablet by mouth 4 times daily as needed for Pain 30 tablet 1 03/20/2018 Activetake 1 tablet by mouth every six hours as needed for painibuprofen (MOTRIN) 800 mg tablet Take 1 tablet (800 mg total) by mouth every 6 (six) hours as needed for pain. Activetake 1 tablet by mouth every eight hours at mealtime as neededIbuprofen 800 MG 1 tablet with food or milk as needed Orally every 8 hrs Not-Taking/PRNlactobacillus acidophilus [id number] unt oral capsule (2 sources)Start: 85-27-7710Hqgwzwzyrkibq Acidophilus 500 million cell capsule Active 1000 MMU CELLS PO Daily 60 October 11, 2024 12:00am Complies with drug therapylamoTRIgine 200 mg oral tablet (20 sources)Mood Stabilizer, Anti-epileptic AgentStart: 12-25-1459xftf 1 tablet by mouth in the morninglamoTRIgine (LaMICtal) 200 mg tablet Take 1 tablet (200 mg total) by mouth in the morning. 02/13/2019 Activelansoprazole 30 mg delayed release oral capsule (20 sources)Proton Pump InhibitorStart: 04-29-2024 End: 55-60-2820okpf 1 capsule by mouth once dailylansoprazole (Prevacid) [address] capsule Take 30 mg by mouth Daily 05/19/2024 Activelidocaine 0.05 mg/mg medicated patch (6 sources)Antiarrhythmic, Amide Local AnestheticStart: 28-11-8429obtfm 1 dose topically once daily as needed for painLidocaine 5 % adhesive patch,medicated Active 1 PATCH TOPICAL Daily as needed for pain July 27, 2024 12:00am Complies with drug therapylisdexamfetamine dimesylate 70 mg oral capsule (20 sources)Central Nervous System StimulantStart: 30-48-1239btwnjowofjounnty (VYVANSE) 70 mg capsule 01/09/2022 Activelurasidone hydrochloride 120 mg oral tablet (20 sources)Atypical AntipsychoticStart: 58-85-5959uwhf 1 tablet by mouth once daily at breakfastlurasidone (LATUDA) 120 mg tablet tablet Take 1 tablet (120 mg total) by mouth daily with breakfast. 04/17/2020 ActiveStart: 01-19-2020 End: 95-77-9929iwut 1 tablet by mouth once dailyLurasidone 80 mg tablet Discontinued 80 MG PO Daily May 20, 2023 12:00am October 15, 2023 9:30am lurasidone (Latuda) 120 MG tablet Take 80 mg by mouth Daily Take with food. Rkocsx56 ml methocarbamol 100 mg/ml injection (20 sources)Muscle RelaxantStart: 31-77-8384Mpfnfqg 100 mg/mL inj Refills(s) 0 Start Date: 10/14/18 Status: Orderedtake 1 tablet by mouth three times daily methocarbamol (ROBAXIN) 500 MG tablet Take 1 tablet by mouth 3 times daily Jdxqln90 hr metoprolol succinate 25 mg extended release oral tablet (20 sources)beta-Adrenergic BlockerStart: 96-68-3326jmqv 1 tablet by mouth once daily in the morningMetoprolol Succinate 25 mg tablet extended release 24 hr Active 25 MG PO Every morning July 27, 2024 12:00am Complies with drug therapy Start: 43-31-1349cocedwtwzq succinate XL (Toprol-XL) 25 MG 24 hr tablet 03/21/2024 ActiveStart: 63-59-4536dvwl 0.5 tablet by mouth once dailymetoprolol succinate XL (Toprol-XL) 25 MG 24 hr tablet TAKE 1/2 (ONE-HALF) OF A TABLET BY MOUTH DAILY 03/21/2024 Activemontelukast 10 mg oral tablet (20 sources)Leukotriene Receptor AntagonistStart: 38-26-2503dbub 1 tablet by mouth once dailymontelukast (SINGULAIR) 10 mg tablet TAKE 1 TABLET BY MOUTH NIGHTLY 30 tablet 07/16/2020 ActiveMounjaro 2.5 MG/0.5ML solution auto-injector (20 sources)Start: 13-38-3802Siuglkku 2.5 MG/0.5ML solution auto-injector Indications: Type 2 diabetes mellitus without complication, unspecified whether residential insulin use (HCC) INJECT 2.5 MG SUBCUTANEOUSLY (UNDER THE SKIN) EVERY 7 DAYS 2 mL 3 09/16/2024 ActiveStart: 06-01-2024 End: 95-62-6762Eqxivphi 2.5 MG/0.5ML solution auto-injector INJECT 2.5 MG SUBCUTANEOUSLY (UNDER THE SKIN) EVERY 7 DAYS 06/01/2024 08/04/2024 Discontinued (Dose adjustment)Start: 35-46-0572Uuinkmmt 2.5 MG/0.5ML solution auto-injector INJECT 2.5 MG SUBCUTANEOUSLY (UNDER THE SKIN) EVERY 7 DAYS 06/01/2024 Active Multiple Vitamin (Tab-A-Karely) tablet (20 sources)Start: 37-30-0026ndaf 1 tablet by mouth once dailyMultiple Vitamin (Tab-A-Karely) tablet Take 1 tablet by mouth Daily 12/26/2022 ActiveStart: 92-62-0435rdpc 1 tablet by mouth in the morningMultiple Vitamin (Tab-A-Karely) tablet Take 1 tablet by mouth in the morning. 12/26/2022 Active rwddexon-tynq-NS-calcium &mins (THERAGRAN-M) 9 mg iron-400 mcg tablet (16 sources)amcsncxi-cngr-RG-calcium &mins (THERAGRAN-M) 9 mg iron-400 mcg tablet Take 1 tablet by mouth inthe morning. Imkxqrmzgxxgcn-yqsa-CQ-calcium &mins (THERAGRAN-M) 9 mg iron-400 mcg tablet Take 1 tablet by mouth inthe morning. 0 ActiveMultivitamin preparation (20 sources)Multivitamin ActiveMultivitamin With Folic Acid (Daily-Karely (With Folic Acid)) 400 mcg tablet (9 sources)Start: 99-20-1611plqi 1 tablet by mouth once daily in the morning Multivitamin With Folic Acid (Daily-Karely (With Folic Acid)) 400 mcg tablet Active 1 TAB PO Every morning May 20, 2023 12:00am Complies with drug therapyStart: 41-03-3500bdiu 1 tablet by mouth once daily in the morning Multivitamin With Folic Acid (Daily-Karely (With Folic Acid)) 400 mcg tablet Active 1 TAB PO Every morning May 20, 2023 12:00amStart: 05-20-2023 Multivitamin With Folic Acid (Daily-Karely (With Folic Acid)) 400 mcg tablet Active TAB PO May 19, 2023 11:00pmStart: 77-52-8919Sdnizttuubsc With Folic Acid (Daily-Karely (With Folic Acid)) 400 mcg tablet Active TAB PO May 20, 2023 12:00ammupirocin 0.02 mg/mg topical ointment (20 sources)RNA Synthetase Inhibitor AntibacterialStart: 37-93-4993Elkislkog 2 % ointment Active 1 APPLIC TOPICAL Daily as needed for rash July 27, 2024 12:00am Complies with drug therapyStart: 03-16-2023 End: 46-93-5552ofrzvsqlv (Bactroban) 2 % ointment Indications: Chronic rhinitis apply to left nose TWICE DAILY for2 (TWO) weeks NEEDED 15 g 2 03/03/2024 Activenaloxone 0.4 mg in 10 mL sodium chloride syringe (1 source)Start: 51-27-9892eyrgiutv 500 mg oral tablet (20 sources)Nonsteroidal Anti-inflammatory DrugStart: 32-39-8888hqoz 1 tablet by mouth in the morningnaproxen (Naprosyn) 500 MG tablet Take 500 mg by mouth in the morning and 500 mg in the evening. Take with meals. 12/02/2022 Active naproxen (NAPROSYN) 500 MG tablet Take 1 tablet by mouth as needed for Pain Activenitrofurantoin, macrocrystals 25 mg / nitrofurantoin, monohydrate 75 mg oral capsule (1 source)Nitrofuran AntibacterialStart: 11-16-2024 End: 40-29-5202hsvw 1 capsule by mouth twice dailynitrofurantoin, macrocrystal- monohydrate, (MACROBID) 100 MG capsule Take 1 capsule by mouth 2 timesdaily for 5 days 10 capsule 11/16/2024 11/21/2024 ActiveNON FORMULARY (20 sources)NON FORMULARY Hair, Skin & Nails - 2 gummies in the morning Active NON FORMULARY Neosporin cream- applies to bilateral nostrils 3 times a day ActiveNON FORMULARY Hair, Skin & Nails - 2 gummies in the morning 0 ActiveNON FORMULARY Neosporin cream- applies to bilateral nostrils 3 times a day 0 Active nystatin 886604 unt/ml topical cream (17 sources)Polyene AntifungalStart: 56-71-1363werltslc (Mycostatin) cream Apply topically if needed 01/20/2023 Activeomeprazole 20 mg delayed release oral capsule (14 sources)Proton Pump Inhibitortake 2 capsules by mouth once dailyomeprazole (PRILOSEC) 20 MG delayed release capsule Take 40 mg by mouth daily Active pantoprazole 20 mg delayed release oral tablet (20 sources)Proton Pump InhibitorStart: 08-08-2024 End: 49-26-8732qdmm 1 tablet by mouth twice dailyPantoprazole 20 mg tablet,delayed release (DR/EC) Active 20 MG PO Twice daily 60 November 17, 2024 9:24am Complies with drug therapyStart: 14-10-3688ulda 1 tablet by mouth once daily in the morningPantoprazole 20 mg tablet,delayed release (DR/EC) Active 20 MG PO Every morning July 27, 2024 12:00am Complies with drug therapy Start: 06-14-2024 End: 09-60-6396xlrj 1 tablet by mouth twice dailyPantoprazole 20 mg tablet,delayed release (DR/EC) Discontinued 20 MG PO Twice daily 60 June 14, 2024 12:00am July 27, 2024 11:36amtake 1 tablet by mouth before mealtime pantoprazole (ProtoNix) 40 MG EC tablet Take 40 mg by mouth in the morning. Take before meals. Do not crush, chew, or split. Activepioglitazone 30 mg oral tablet (20 sources)Peroxisome Proliferator Receptor alpha Agonist, Peroxisome Proliferator Receptor gamma Agonist, ThiazolidinedioneStart: 05-10-2020 End: 36-64-3121okzq 1 tablet by mouth once dailypioglitazone (ACTOS) 30 mg tablet Take 1 tablet (30 mg total) by mouth daily. 30 tablet 5 05/10/2020 Active polyethylene glycol 3350 182327 mg / potassium chloride 2970 mg / sodium bicarbonate 6740 mg / sodium chloride 5860 mg / sodium sulfate 00800 mg powder for oral solution (2 sources)Osmotic LaxativeStart: 55-33-0455Yreokdzd 236 GM 236 ml Orally 8 ounces every 15 minutes for 1 days PLEASE CHECK ALLERGIES Mar, Activeprasterone (DHEA) (6 sources)Start: 99-83-6713ykar 1 tablet by mouth once daily in the morning prasterone (DHEA) Active 1 TAB PO Every morning July 27, 2024 12:00am Complies with drug therapyStart: 89-18-2824vrij 1 tablet by mouth once daily in the morningprasterone (DHEA) Active 1 TAB PO Every morning July 27, 2024 12:00am predniSONE 10 mg oral tablet (10 sources)Start: 45-09-6156zlnp 3 tablets by mouth once daily, then take 2 tablets by mouth once daily, then take 1 tablet by mouth once daily, then take 0.5 tablet by mouth once dailypredniSONE (Deltasone) 10 MG tablet TAKE 3 TABLETS BY MOUTH DAILY FOR 4 DAYS then TAKE 2 TABLETS BYMOUTH DAILY FOR 4 DAYS then TAKE 1 TABLET BY MOUTH DAILY FOR 4 DAYS then TAKE 1/2 (ONE-HALF) OF A TABLET BY MOUTH DAILY FOR 4 DAYS 03/29/2024 Activepromethazine hydrochloride 25 mg oral tablet (1 source)PhenothiazineStart: 98-24-0202pjzp 1 tablet by mouth every six hours as needed for nauseapromethazine 25 mg Tab 25 mg = 1 tab(s), Oral, q6hr, PRN Nausea, # 20 tab(s), Refills(s) 0, Pharmacy: [id number], 157, cm, 03/10/19 12:21:00 EST, Height/Length Measured, 100.7, kg, 03/10/19 12:21:00 EST, Weight Measured Start Date: 06/13/19 Status: Orderedrizatriptan 10 mg oral tablet (20 sources)Serotonin-1b and Serotonin-1d Receptor AgonistStart: 06-02-2022 Rizatriptan (Maxalt) 10 mg tablet Active 10 MG PO . NEEDED as needed for migraine headache May 20, 2023 12:00am Complies with drug therapyStart: 64-58-1593uwxw 1 tablet by mouth every two hours, then take 2 tablets by mouth once dailyrizatriptan (MAXALT) 10 mg tablet TAKE 1 TABLET BY MOUTH at onset of migraine, may repeat after 2 hours if needed (max 2 tablets per day, 2 days per week) 2 01/16/2019 Activerosuvastatin calcium 10 mg oral tablet (20 sources)HMG-CoA Reductase InhibitorStart: 82-97-6605eijt 1 tablet by mouth once daily at bedtimeRosuvastatin 10 mg tablet Active 10 MG PO Daily at bedtime May 20, 2023 12:00am Complies with drug therapyStart: 92-56-7532kkpg 1 tablet by mouth once dailyRosuvastatin 10 mg tablet Active 10 MG PO Daily May 20, 2023 12:00amtake 1 tablet by mouth in the morningrosuvastatin (CRESTOR) 20 mg tablet Take 1 tablet (20 mg total) by mouth in the morning. 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 01/15/2022 ActiveStart: 71-63-8472hbecjilydsj 1 mg/dose (2 mg/1.5 mL) pen injector Waiting for approval to take the 2mg dose not 1 dose 0 01/15/2022 ActiveOzempic (0.25 or 0.5 MG/DOSE) 2 MG/1.5ML as directed Subcutaneous Not-Takingsulfamethoxazole 800 mg / trimethoprim 160 mg oral tablet (7 sources)Dihydrofolate Reductase Inhibitor Antibacterial, Sulfonamide AntimicrobialStart: 08-10-2024 End: 30-44-5033hphb 1 tablet by mouth twice dailySulfamethoxazole-Trimethoprim (Bactrim Ds) 800-160 mg tablet Active 1 TAB PO Twice daily 2024 12:00am Complies with drug therapySUMAtriptan 100 mg oral tablet (20 sources)Serotonin-1b and Serotonin-1d Receptor AgonistStart: 70-66-1440pepf 2 tablets by mouth once daily as neededSumatriptan Succinate 100 mg tablet Active 100 MG PO .COMPLEX as needed for migraine headache 11 29November 02, 2024 11:38am 100 mg orally at the onset of a migraine. may repeat in 2 hours. no morethan than 2 per day. no more than 2 days/week PRN; Complies with drug therapyStart: 97-18-0321cpqt 1 tablet by mouth once daily as neededSUMAtriptan (Imitrex) 100 MG tablet Indications: Migraine with aura and without status migrainosus,not intractable TAKE 1 TABLET BY MOUTH DAILY NEEDED FOR MIGRAINE 9 tablet 1 06/20/2024 ActiveStart: 79-67-7605kzfx 1 tablet by mouth once daily as neededSUMAtriptan (Imitrex) 100 MG tablet Indications: Migraine with aura and without status migrainosus,not intractable (CMS/HCC) TAKE 1 TABLET BY MOUTH ONCE DAILY NEEDED for FOR MIGRAINE 9 tablet 1 04/20/2024 ActiveStart: 01-20-2024 End: 90-76-5173iixy 1 tablet by mouth onceSUMAtriptan (Imitrex) 100 MG tablet Indications: Migraine with aura and without status migrainosus,not intractable (CMS/HCC) Take 1 tablet (100 mg) by mouth 1 (one) time if needed for migraine 9 tablet 01/20/2024 02/19/2024 ActiveStart: 05-20-2023 End: 36-76-6041udew 1 tablet by mouth twice daily as needed for headache Sumatriptan Succinate 100 mg tablet Discontinued 100 MG PO Twice daily as needed for migraine headache May 20, 2023 12:00am November 02, 2024 11:39am Start: 25-66-9491rtiy 1 tablet by mouth every two hours, then take 2 tablets by mouth once daily, then take 2 tablets by mouth every weekSUMAtriptan (IMITREX) 100 mg tablet TAKE 1 TABLET BY MOUTH at onset of FOR MIGRAINE. May repeat once after 2 hours if needed (max 2 TABLETS per day, 2 TABLETS per week) 2 11/03/2018 Activetake 1 tablet by mouth every two hours as needed, then take 1 tablet by mouth twice daily as neededSUMAtriptan Succinate 25 MG 1 tablet at least 2 hours between doses as needed Orally Twice a day Activetamsulosin hydrochloride 0.4 mg oral capsule (15 sources)alpha-Adrenergic BlockerStart: 20-95-5967rfnm 1 capsule by mouth once dailytamsulosin (FLOMAX) 0.4 MG capsule Take 1 capsule by mouth daily 30 capsule 11/15/2024 ActiveStart: 05-54-1274fasl 1 capsule by mouth once daily tamsulosin (Flomax) 0.4 MG 24 hr capsule Take 0.4 mg by mouth Daily 01/08/2024 Activetemazepam 15 mg oral capsule (20 sources)Benzodiazepinetake 1 capsule by mouth once daily as needed for sleep temazepam (RESTORIL) 15 MG capsule Take 15 mg by mouth nightly as needed for Sleep Activeterbinafine 250 mg oral tablet (12 sources)Allylamine AntifungalStart: 47-68-4336umzy 1 tablet by mouth once dailyterbinafine (LamISIL) 250 MG tablet Take 250 mg by mouth Daily 01/21/2024 Zdmjws9026 mg testosterone 0.01 mg/mg topical gel (6 sources)AndrogenStart: 01-15-0303Btczfjptryef 50 mg/5 gram (1 %) gel Active 50 MG TRANSDERML Daily July 27, 2024 12:00am Complies with drug therapy Tirzepatide (6 sources)Start: 12-63-5678Sbmxvkoqzou (Mounjaro) 2.5 mg/0.5 mL pen injector Active 2.5 MG SUBCUT Once a week July 27, 2024 12:00am Complies with drug therapyStart: 53-70-0265Lspfwuujgqp (Mounjaro) 2.5 mg/0.5 mL pen injector Active 2.5 MG SUBCUT Once a week July 27, 2024 12:00amtirzepatide (MOUNJARO) 2.5 mg/0.5 mL pen injector (5 sources)tirzepatide (MOUNJARO) 2.5 mg/0.5 mL pen injector Inject 2.5 mg under the skin every 7 days. ActiveTirzepatide (MOUNJARO) 2.5 MG/0.5ML SOAJ pen (3 sources)Tirzepatide (MOUNJARO) 2.5 MG/0.5ML SOAJ pen Inject 2.5 mg into the skin once a week ActiveTirzepatide (Mounjaro) 2.5 MG/0.5ML solution auto-injector (10 sources)Start: 04-11-2024 End: 65-17-7143Krjzmzzfnhr (Mounjaro) 2.5 MG/0.5ML solution auto-injector Indications: Type 2 diabetes mellitus without complication, unspecified whether residential insulin use (CMS/HCC) Inject 2.5 mg under the skinevery 7 (seven) days 2 mL 3 04/11/2024 05/11/2024 ActiveStart: 04-07-2024 End: 02-25-5249Zqdagjhwxqf (Mounjaro) 2.5 MG/0.5ML solution auto-injector Indications: Type 2 diabetes mellitus without complication, unspecified whether residential insulin use (CMS/HCC) Inject 2.5 mg under the skinevery 7 (seven) days 2 mL 3 04/07/2024 05/07/2024 ActiveTirzepatide (Mounjaro) 5 MG/0.5ML solution auto-injector (20 sources)Start: 08-04-2024 End: 17-41-0090Nxekkjzlllb (Mounjaro) 5 MG/0.5ML solution auto-injector Indications: Type 2 diabetes mellitus without complication, unspecified whether residential insulin use (HCC) Inject 5 mg under the skin every 7(seven) days 6 mL 1 08/04/2024 11/02/2024 ActiveStart: 08-04-2024 End: 91-46-0624Xcdspsiscke (Mounjaro) 5 MG/0.5ML solution auto-injector Indications: Type 2 diabetes mellitus without complication, unspecified whether residential insulin use Inject 5 mg under the skin every 7 (seven) days 6 mL 1 08/04/2024 11/02/2024 Activetopiramate 200 mg oral tablet (20 sources)take 1 tablet by mouth once dailytopiramate (TOPAMAX) 200 MG tablet Take 1 tablet by mouth daily ActivetraMADol hydrochloride 50 mg oral tablet (20 sources)Opioid AgonistStart: 00-51-0581stuv 1 tablet by mouth every twenty- four hours as neededtraMADol (Ultram) 50 MG tablet Take 50 mg by mouth Daily as needed 01/21/2023 ActiveUltram ActivetraZODone hydrochloride 50 mg oral tablet (20 sources)Serotonin Reuptake InhibitorStart: 04-17-2020 End: 47-86-6154rekTEJqgg (DESYREL) 50 mg tablet as needed. 04/17/2020 Active Trulance 3 MG (1 source)Start: 39-61-2919rdqt 1 tablet by mouth once dailyTrulance 3 MG 1 tablet Orally Once a day for 30 days Jan, ActiveTRULICITY 3 mg/0.5 mL pen injector (11 sources)Start: 50-07-6799WVPYYEBUT 3 mg/0.5 mL pen injector Injects on Sundays10/15/2022 ActiveStart: 11-80-7146MIPEMRJDY 3 mg/0.5 mL pen injector Injects on Sundays 0 10/15/2022 ActiveVentolin HFA 90 mcg/inh Aerosol (1 source)Start: 82-69-7366Vizuebjk HFA 90 mcg/inh Aerosol Refill(s) 0 Start Date: 10/14/18 Status: OrderedVitamin B Complex (16 sources)Start: 85-80-3187iabr 1 tablet by mouth once dailyB COMPLEX-VITAMIN B12 tablet TAKE 1 TABLET BY MOUTH DAILY 30 tablet 5 01/16/2020 ActiveVitamin B Complex (Vitamins B Complex) tablet (6 sources)Start: 98-55-6434vgfv 1 tablet by mouth once daily in the morning Vitamin B Complex (Vitamins B Complex) tablet Active 1 TAB PO Every morning July 27, 2024 12:00am Complies with drug therapyStart: 81-00-5727neyb 1 tablet by mouth once daily in the morningVitamin B Complex (Vitamins B Complex) tablet Active 1 TAB PO Every morning July 27, 2024 12:00amVitamin D (13 sources)Vitamin D Activezonisamide 100 mg oral capsule (20 sources)Anti-epileptic Agenttake 1 capsule by mouth once dailyzonisamide (ZONEGRAN) 100 MG capsule Take 1 capsule by mouth daily Active Completed/Discontinued Medications MedicationDrug Class(es)DatesSig (Normalized)Sig (Original)Dulaglutide (11 sources)GLP-1 Receptor AgonistStart: 05-20-2023 End: 77-65-5959Cyetqvmpfrm (Trulicity) 3 mg/0.5 mL pen injector Discontinued MG SUBCUT May 20, 2023 12:00am May 21, 2023 10:20amTrulicity 3 MG/0.5ML as directed Subcutaneous WEEKLY ActiveDulaglutide (Trulicity) 3 mg/0.5 mL pen injector (6 sources)Start: 05-20-2023 End: 74-12-9645Ljmsiqkguol (Trulicity) 3 mg/0.5 mL pen injector Discontinued MG SUBCUT May 19, 2023 11:00pm May 21, 2023 9:20amStart: 05-20-2023 End: 01-87-3040Jppbztmcdmz (Trulicity) 3 mg/0.5 mL pen injector Discontinued MG SUBCUT May 20, 2023 12:00am May 21, 2023 10:20amDuloxetine 30 mg capsule,delayed release(DR/EC) (5 sources)Start: 05-21-2023 End: 87-69-8112wsua 1 capsule by mouth once dailyDuloxetine 30 mg capsule,delayed release(DR/EC) Discontinued 30 MG PO Daily May 21, 2023 12:00am October 15, 2023 9:27amStart: 05-21-2023 End: 73-09-0411oakc 1 capsule by mouth once dailyDuloxetine 30 mg capsule,delayed release(DR/EC) Discontinued 30 MG PO Daily May 20, 2023 11:00pm October 15, 2023 8:27amempagliflozin 25 mg oral tablet (20 sources)Sodium-Glucose Cotransporter 2 InhibitorStart: 05-20-2023 End: 84-56-3376uqpf 1 tablet by mouth once dailyempagliflozin (Jardiance) 25 MG Indications: Type 2 diabetes mellitus without complication, 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) Take 1 tablet (25 mg) by mouth Daily 30 tablet 2 Discontinued (Reorder)etonogestrel 68 mg drug implant (20 sources)ProgestinStart: 05-20-2023 End: 92-30-1500Xzzegbfdvgjx (Nexplanon) 68 mg implant Discontinued 68 MG SUBDERMAL As Directed May 20, 2023 12:00am July 27, 2024 11:11amStart: 02-70-4370Xnzlvzdam 68 mg subcutaneous implant Refills(s) 0 Start Date: 10/14/18 Status: Ordered End: 08-88-7057povppc 68 mg by subcutaneous injection onceetonogestrel-eluting (Nexplanon) 68 mg contraceptive implant Inject 68 mg under the skin 1 (one) time 11/02/2024 DiscontinuedEtonogestrel (Nexplanon) 68 mg implant (6 sources)Start: 05-20-2023 End: 81-19-9065Phtgteocagmi (Nexplanon) 68 mg implant Discontinued 68 MG SUBDERMAL As Directed May 20, 2023 12:00am July 27, 2024 11:11amStart: 95-33-2007Lxqqypooltmi (Nexplanon) 68 mg implant Active 68 MG SUBDERMAL As Directed May 19, 2023 11:00pmStart: 56-34-2607Uqkuyntunjiu (Nexplanon) 68 mg implant Active 68 MG SUBDERMAL As Directed May 20, 2023 12:00amiopamidol (ISOVUE-370) 76 % injection 75 mL (1 source)Start: 11-17-2024 End: 47-84-7901uepu 1 dose intravenously once75 mL, IntraVENous, IMG ONCE PRN, 1 dose, Starting on Thu11/17/24 at 2205, Until Thu11/17/24 at 2206, OtherIron (20 sources)Iron Not-Taking/PRNIron Not-TakingIron Active1 ml ketorolac tromethamine 15 mg/ml cartridge (2 sources)Nonsteroidal Anti-inflammatory Drug, Cyclooxygenase InhibitorStart: 11-17-2024 End: 19-59-996482 mg, IntraVENous, ONCE, 1 dose, On Thu11/17/24 at 2115Start: 04-20-2023 End: 23-14-3024zwqkdqgey (TORADOL) injection 30 mg100 ml levoFLOXacin 5 mg/ml injection (1 source)Quinolone AntimicrobialStart: 11-15-2024 End: 23-71-7083pyho 1 dose intravenously every pxxi156 mg, IntraVENous, 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 Active3 ml liraglutide 6 mg/ml pen injector (20 sources)GLP-1 Receptor AgonistStart: 05-21-2023 End: 83-32-0207Gjigkbvgils (Victoza 2-Ramon) 0.6 mg/0.1 mL (18 mg/3 mL) pen injector Discontinued MG SUBCUT May 21, 2023 12:00am June 02, 2024 9:36am Start: 05-19-2023 End: 17-90-1142nkrvih 1.8 mg by subcutaneous injection once dailyVictoza 18 MG/3ML injection Inject 1.8 mg under the skin Daily 05/19/2023 04/07/2024 Discontinued (Formulary change)meloxicam 15 mg oral tablet (20 sources)Nonsteroidal Anti-inflammatory DrugStart: 05-21-2023 End: 33-12-3740qdwc 2 tablets by mouth once dailyMeloxicam 15 mg tablet Discontinued 30 MG PO Daily May 21, 2023 12:00am July 27, 2024 11:19am Start: 04-13-3530nnvn 30 mg by mouth once dailyMeloxicam Active 30 MG PO Daily May 21, 2023 12:00amtake 1 tablet by mouth once dailymeloxicam (MOBIC) 15 MG tablet Take 1 tablet by mouth daily Active2 ml ondansetron 2 mg/ml injection (3 sources)Serotonin-3 Receptor AntagonistStart: 11-17-2024 End: mg, IntraVENous, ONCE, 1 dose, On [place]ange 11/17/24 at 2115Start: 11-15-2024 End: mg, IntraVENous, ONCE PRN, 1 dose, Starting on Thu11/15/24 at 1719, Until Thu11/15/24 at 1802, Nausea, Initial antiemetic therapy., PACU only Start: 10-12-2021 End: 31-49-4426hozhfnlpnnb (ZOFRAN-ODT) disintegrating tablet 4 mg2 ml orphenadrine citrate 30 mg/ml injection (1 source)Muscle RelaxantStart: 04-20-2023 End: 34-47-4950hjnpphqswucw (NORFLEX) injection 60 mgStart: 04-20-2023 End: 46-47-3012rkjualsttxct (NORFLEX) injection 60 mgoxyCODONE hydrochloride 5 mg oral tablet (1 source)Opioid AgonistStart: 11-15-2024 End: 88-40-4660ngiy 1 dose by mouth once for pain5 mg, Oral, ONCE PRN, 1 dose, Starting on Thu11/15/24 at 1719, Until Thu11/15/24 at 1756, Pain Moderate (4-6) OR per patient request for pain score (7-10), Pain Severe (7-10), PHASE II, PACU onlyOzempic (0.25 or 0.5 MG/DOSE) 2 MG/1.5ML (8 sources)Ozempic (0.25 or 0.5 MG/DOSE) 2 MG/1.5ML as directed Subcutaneous Not-Taking/PRNOzempic (0.25 or 0.5 MG/DOSE) 2 MG/1.5ML as directed Subcutaneous Not-Takingplecanatide 3 mg oral tablet (12 sources)Start: 02-27-2023 End: 11-45-9748mlnd 1 tablet by mouth once dailyPlecanatide (Trulance) 3 mg tablet Discontinued 3 MG PO Daily May 21, 2023 12:00am May 21, 2023 11:36amStart: 46-08-5600idof 1 tablet by mouth every twenty-four hoursTrulance 3 MG 1 tablet Orally Once a day for 30 days Jan, ActivePlecanatide (Trulance) 3 mg tablet (6 sources)Start: 05-21-2023 End: 46-18-6229stbs 1 tablet by mouth once dailyPlecanatide (Trulance) 3 mg tablet Discontinued 3 MG PO Daily May 20, 2023 11:00pm May 21, 2023 10:36amStart: 05-21-2023 End: 18-11-9097kpun 1 tablet by mouth once dailyPlecanatide (Trulance) 3 mg tablet Discontinued 3 MG PO Daily May 21, 2023 12:00am May 21, 2023 11:36ampolyethylene glycol 3350 53438 mg powder for oral solution (7 sources)Osmotic LaxativeStart: 29-32-9745GbksUej 17 GM/SCOOP 17 gr in liquid in the morning. if no bowel movement at noon, take 17 grams in liquid. If no lbowel movement by dinner, take 17 gr in liquid Orally 1-3 times a day for 30 days Jan, Not-Taking/PRNStart: 58-47-0006XpjkAln 17 GM/SCOOP take 238 gr in liquid the day prior to colonoscopy Orally Once a day for 30 days Jan, Oebmwo87 ml sodium chloride 9 mg/ml injection (5 sources)Start: 11-17-2024 End: ,000 mL (9.59 mL/kg), IntraVENous, at 983.6 mL/hr, Administer over 61 Minutes, ONCE, On [place] 11/17/24 at 2115, For 1 doseStart: 84-73-9803Ebmja: 79-73-6731Qlkqa: 38-55-1287Gxnsr: 01-13-2024 End: ,000 mL (10.4 mL/kg), IntraVENous, at 983.6 mL/hr, Administer over 61 Minutes, ONCE, On 01/13/24 at 1530, For 1 dose, For adult patients weighing > 55 kg (120 lbs.) and less thanTirzepatide (7 sources)Start: 06-02-2024 End: 03-87-7558Eprrdpjvatm (Mounjaro) 15 mg/0.5 mL pen injector Discontinued 15 MG SUBCUT every week June 02, 2024 12:00am July 27, 2024 11:25amStart: 15-62-8729Lkkyujjgvtp (Mounjaro) 15 mg/0.5 mL pen injector Active 15 MG SUBCUT every week June 02, 2024 12:00amtiZANidine 4 mg oral tablet (20 sources)Central alpha-2 Adrenergic AgonistStart: 10-16-2023 End: 39-02-3191yaka 2 tablets by mouth at bedtimetiZANidine (Zanaflex) 4 MG tablet Indications: Migraine with aura and without status migrainosus, not intractable (CMS/HCC) TAKE 2 TABLETS BY MOUTH AT BEDTIME 60 tablet 2 10/16/2023 04/18/2024 Discontinued (Other)Start: 05-21-2023 End: 47-41-2359kzxz 2 tablets by mouth once daily at bedtimeTizanidine 4 mg tablet Discontinued 8 MG PO Daily at bedtime May 21, 2023 10:24am July 27, 2024 11:21amStart: 44-16-1618xbnb 8 mg by mouth once daily at bedtimeTizanidine Active 8 MG PO Daily at bedtime May 21, 2023 10:24amStart: 05-08-2021 End: 69-04-2800xptu 1 tablet by mouth once daily at bedtimeTizanidine 4 mg tablet Discontinued 4 MG PO Daily at bedtime May 20, 2023 12:00am May 21, 2023 10:34amStart: 30-25-0354vucqpqmduj 4 mg oral capsule Refills(s) 0 Start Date: 10/14/18 Status: Orderedtake 1 tablet by mouth every six hours as neededtiZANidine (ZANAFLEX) 4 MG tablet Take 4 mg by mouth every 6 hours as needed Activetake 2 tablets by mouth every twenty-four hourstiZANidine HCl 4 MG 2 tablet Orally daily Activetake 1 tablet by mouth every twelve hourstiZANidine HCl 4 MG 1 tablet Orally TWICE A DAY Activevitamin B12 (20 sources)Vitamin P84Fgstbqk B12 Not-Taking/PRNVitamin B12 Not-TakingVitamin B12 Active Problems Active Problems Problem ClassificationProblemDateDocumented DateEpisodic/ChronicAbdominal pain (5 sources)Unspecified abdominal pain; Translations: [Flank pain]Onset: 74-01-3438RdgjsuvzRkegdws disorders (20 sources)Posttraumatic stress disorder; Translations: [Post-traumatic stress disorder, unspecified]Onset: 66-73-1922WrvynmxVrsror (20 sources)Asthma; Translations: [Unspecified asthma, uncomplicated]Onset: 301569-28-8050HquetbyYmaswpwfo-efasnlg, conduct, and disruptive behavior disorders (9 sources)Attention-deficit hyperactivity disorder, unspecified type; Translations: [Attention deficit disorder with hyperactivity]ChronicCalculus of urinary tract (20 sources)Personal history of urinary calculi; Translations: [History of calculus of kidney]Onset: 08-17-2024 Resolved: 61-43-1947XazgtgocFrcckpugsati of device; implant or graft (3 sources)Complication associated with neurological device; Translations: [Breakdown (mechanical) of implanted electronic neurostimulator, generator, sequela]Onset: 367822-51-3895KxxtegnsOjvmfmcqacbfl and procreative management (3 sources)Subcutaneous contraceptive implant present; Translations: [Encounter for surveillance of implantable subdermal contraceptive]72-67-5828Eldqchfs Deficiency and other anemia (1 source)Anemia, unspecified; Translations: [Anemia, unspecified]Onset: 45-46-1371VlmdgotmXfqhjssckj and other anemia (1 source)Iron deficiency anemia, unspecified; Translations: [Iron deficiency anemia, unspecified]Onset: 28-48-5076HdfsmfnyUedlpqqhld and other anemia (2 sources)Iron deficiency anemia; Translations: [Other iron deficiency anemias] 73-66-0405VhzsekutGpsiwbiu mellitus with complications (20 sources)Hyperglycemia due to type 2 diabetes mellitus; Translations: [Type 2 diabetes mellitus with hyperglycemia]Onset: 02-11-2024 Resolved: 98-67-3501BbuvtdfQvqgayrq mellitus without complication (20 sources)Type 2 diabetes mellitus without complication; Translations: [Type 2 diabetes mellitus without complications]Onset: 11-10-2017 Resolved: 028025-07-2118BtuxrlnJecpqniuo of lipid metabolism (20 sources)Hyperlipidemia; Translations: [Hyperlipidemia, unspecified]Onset: 489312-24-0288ZkvtjvyDantbzkteoinoj and diverticulitis (20 sources)Diverticulitis; Translations: [Diverticulitis of intestine, part unspecified, without perforation or abscess without bleeding]Onset: 03-10-2023 66-42-5682WuxdkeeO Codes: Fall (1 source)Unspecified fall due to ice and snow, initial encounter; Translations: [Fall from other slipping, tripping, or stumbling]44-31-3550WwsjdrzrTklrxgjlwk disorders (14 sources)Gastroesophageal reflux disease; Translations: [Gastro-esophageal reflux disease without esophagitis]53-01-3310ZuiaqntYjoesjywh hypertension (2 sources)Essential (primary) hypertension; Translations: [Essential (primary) hypertension]Onset: 25-39-8107TimpfzqMietytgfegzzenyc hemorrhage (1 source)Hemorrhage of anus and rectumEpisodicGenitourinary symptoms and ill- defined conditions (4 sources)Edinson hematuria; Translations: [Gross hematuria]Onset: 11-14-2024 59-78-7890JkgtncszDifujoca; including migraine (2 sources)Tension-type headache; Translations: [Tension-type headache, unspecified, not intractable]98-85-9031NmbfbjuZrrmlls (2 sources)Onychomycosis of toenails; Translations: [Tinea unguium]04-18-2024 EpisodicNausea and vomiting (1 source)Pwaodh24-94-1189BwnlfigzYlvpokandfq deficiencies (20 sources)Vitamin D deficiency; Translations: [Vitamin D deficiency, unspecified]Onset: 114599-70-3207RvnoefsSaodmgizadocyx (20 sources)Osteoarthritis of joint of left ankle and/or foot; Translations: [Primary osteoarthritis, left ankle and foot]Onset: 794367-99-0574Nbsfhwg Osteoporosis (12 sources)Osteoporosis; Translations: [Other osteoporosis without current pathological fracture]Onset: 721449-37-5082RdvfliaIbuwc bone disease and musculoskeletal deformities (2 sources)Osteopenia; Translations: [Other specified disorders of bone density and structure, unspecified site]20-21-2132LqzmtgdoLrwdq diseases of kidney and ureters (6 sources)Hydronephrosis with renal and ureteral calculous obstruction; Translations: [Calculus of ureter]Onset: 701771-44-7105EdmhoxhjOfuzo ear and sense organ disorders (1 source)Acute otitis externa; Translations: [Diffuse otitis externa, left ear] EpisodicOther endocrine disorders (20 sources)Reactive hypoglycemia; Translations: [Other hypoglycemia]Onset: 08-17-2024 Resolved: 954909-76-3668NujaotbHggcq endocrine disorders (8 sources)Other hypoglycemiaChronicOther endocrine disorders (4 sources)Hypoglycemia; Translations: [Hypoglycemia, unspecified]Onset: 669329-63-2145UrwxemyNiaau endocrine disorders (4 sources)Disorder of endocrine system; Translations: [Endocrine disorder, unspecified]90-47-0228CjsdeyfmUemiq gastrointestinal disorders (9 sources)Irritable bowel syndrome; Translations: [Irritable bowel syndrome without diarrhea]14-45-1549AsdilkzOfluw gastrointestinal disorders (6 sources)Irritable bowel syndrome without diarrhea; Translations: [Irritable bowel syndrome]63-28-8148YindoofJqgrx gastrointestinal disorders (1 source)Intestinal malabsorption, unspecified; Translations: [Intestinal malabsorption, unspecified]Onset: 73-28-8016PiioixeZqxye gastrointestinal disorders (2 sources)Irritable bowel syndrome with constipation; Translations: [Irritable bowel syndrome]27-18-9534EgxkukhGwilm gastrointestinal disorders (10 sources)Constipation, unspecified; Translations: [Constipation, unspecified] EpisodicOther inflammatory condition of skin (2 sources)Itching ; Translations: [Pruritus, unspecified]35-54-3168Bwhfqabv Other injuries and conditions due to external causes (1 source)Closed injury of head; Translations: [Unspecified injury of head, initial encounter]06-63-2362KffyenajXfzue liver diseases (15 sources)Fatty (change of) liver, not elsewhere classified; Translations: [Other chronic nonalcoholic liver disease]Onset: 10-29-2021 Resolved: 48-27-4908XulvtxiGoobs nervous system disorders (9 sources)Circadian rhythm sleep disorder, shift work type; Translations: [Circadian rhythm sleep disorder, shift work type]ChronicOther nervous system disorders (20 sources)Chronic pain; Translations: [Other chronic pain]Onset: 08-17-2024 Resolved: 298506-39-8443AflotmvLxobg nervous system disorders (1 source)Other chronic pain; Translations: [Chronic pain of right ankle]Onset: 76-44-4927BrqukbvKkfqz nervous system disorders (2 sources)Paresthesia; Translations: [Paresthesia of skin]08-39-1455Uomyoozx Other nervous system disorders (1 source)Other acute postprocedural pain; Translations: [Other acute postprocedural pain]Onset: 98-22-1277KjdgdotfYhoie non-traumatic joint disorders (1 source)Other instability, left wrist; Translations: [Other instability, left wrist]Onset: 75-43-7451LqkulsvmRawwr non-traumatic joint disorders (1 source)Pain in right ankle and joints of right foot; Translations: [Chronic pain of right ankle]Onset: 22-51-9916KatqnsomPelwk non-traumatic joint disorders (1 source)Pain in unspecified ankle and joints of unspecified foot; Translations: [Pain in joint involving ankle and foot, unspecified laterality] Onset: 90-24-6639EidbfdtxYpoph nutritional; endocrine; and metabolic disorders (20 sources)Obesity; Translations: [Obesity, unspecified]Onset: 03-10-2023 39-76-0694KjpihjpCkmiu nutritional; endocrine; and metabolic disorders (20 sources)Other lipoprotein metabolism disorders; Translations: [Steatosis] ChronicOther nutritional; endocrine; and metabolic disorders (13 sources)Obesity, unspecified; Translations: [Obesity, unspecified]Onset: 10-29-2021 Resolved: 23-17-4115YmeyxbuSrdwh nutritional; endocrine; and metabolic disorders (20 sources)Obese class II; Translations: [Body mass index (BMI) 39.0-39.9, adult]ChronicOther nutritional; endocrine; and metabolic disorders (2 sources)Body mass index (BMI) 39.0-39.9, adultChronicOther nutritional; endocrine; and metabolic disorders (17 sources)Body mass index 40+ - severely obese; Translations: [Body mass index (BMI) 40.0-44.9, adult]ChronicOther nutritional; endocrine; and metabolic disorders (5 sources)Body mass index (BMI) 36.0-36.9, adult; Translations: [Body Mass Index 36.0-36.9, adult]ChronicOther nutritional; endocrine; and metabolic disorders (3 sources)Body mass index (BMI) 34.0-34.9, adultChronicOther nutritional; endocrine; and metabolic disorders (12 sources)Obese class I; Translations: [Body mass index (BMI) 34.0-34.9, adult]ChronicOther nutritional; endocrine; and metabolic disorders (1 source)Body mass index (BMI) 35.0-35.9, adultChronicOther nutritional; endocrine; and metabolic disorders (1 source)Body mass index (BMI) 37.0-37.9, adultChronicOther nutritional; endocrine; and metabolic disorders (20 sources)Body mass index 30+ - obesity; Translations: [Body mass index (BMI) 36.0-36.9, adult]31-14-9428CikltkvTxwfm nutritional; endocrine; and metabolic disorders (10 sources)Severe obesity; Translations: [Class 2 severe obesity due to excess calories with serious comorbidity and body mass index (BMI) of 39.0 to 39.9 in adult ([facility])]92-45-6877KyopdtnIdwqj nutritional; endocrine; and metabolic disorders (6 sources)Weight increased; Translations: [Abnormal weight gain]04-07-2024 EpisodicOther upper respiratory disease (20 sources)Chronic rhinitis; Translations: [Chronic rhinitis]Onset: 03-10-2023 81-94-2787SnokfzkHrjqcaqv codes; unclassified (5 sources)Obstructive sleep apnea (adult) (pediatric); Translations: [OBSTRUCTIVE SLEEP APNEA]Onset: 61-30-8664GzjlsegUnxfdoyl codes; unclassified (17 sources)Obstructive sleep apnea syndrome; Translations: [Obstructive sleep apnea (adult) (pediatric)]38-82-6958TvcrzzyGattnzja codes; unclassified (4 sources)Hypersomnia; Translations: [Hypersomnia, unspecified]11-03-2024 ChronicResidual codes; unclassified (1 source)Pain, unspecified; Translations: [Pain, unspecified]Onset: 06-03-2023 EpisodicResidual codes; unclassified (1 source)Genetic susceptibility to other malignant neoplasm; Translations: [Genetic susceptibility to other malignant neoplasm]Onset: 37-36-8097Fyaowydv Residual codes; unclassified (8 sources)Other specified health status; Translations: [Other specified conditions influencing health status]51-50-5863TwyitdxuDkptuagho and history of mental health and substance abuse codes (1 source)Abnormal developmental screening; Translations: [Encounter for autism screening]EpisodicSkin and subcutaneous tissue infections (1 source)Pilonidal cyst; Translations: [Pilonidal cyst without abscess]Episodic Spondylosis; intervertebral disc disorders; other back problems (20 sources)Spondylosis without myelopathy or radiculopathy, lumbosacral region; Translations: [Displacement ofcervical intervertebral disc]Onset: 09-21-2017 41-67-1616DyftmzlMznzrki and strains (1 source)Strain of neck muscle; Translations: [Strain of muscle, fascia and tendon at neck level, initial encounter]24-85-6059EhpxqdnkRuspkurylybp (1 source)New PatientOnset: 69-61-3189Lgoipldajiqz (1 source)Pre-procedural laboratory examination, Extensor tenosynovitis of finger, Traumatic rupture of otherligament of right wrist initial encounter, Colles' fracture of right radius initial encounter for closed fractureOnset: 85-32-7516Ypbtenkpujza (1 source)Patient encounter -[phone] Past or Other Problems Problem ClassificationProblemDateDocumented DateEpisodic/Chronic Administrative/social admission (8 sources)Patient encounter status; Translations: [Dietary counseling and surveillance]Onset: 231405-09-9871IbexechrMglodwvsz-lnvyywv, conduct, and disruptive behavior disorders (20 sources)Attention deficit hyperactivity disorder; Translations: [Attention- deficit hyperactivity disorder, unspecified type]Onset: 04-27-2024 Resolved: 671965-98-3443FhovtnnVlqrhji tract disease (20 sources)Acute cholecystitis; Translations: [Acute cholecystitis]Onset: 971306-55-8653RoacjpsdFisbdsaeuwzkt of surgical procedures or medical care (20 sources)Abscess; Translations: [Infection following a procedure, other surgical site, initial encounter]Onset: 09-28-2016 Resolved: 313578-13-5748NzhdbqxtFubimjxzyh associated with dizziness or vertigo (2 sources)Dizziness; Translations: [Dizziness and giddiness]Onset: 01-13-2024 91-92-4846YggtfcygDyioaxokmm and other anemia (20 sources)Anemia; Translations: [Anemia, unspecified]Onset: 03-10-2023 16-49-0289McgboywwXzvowdkmmzrlf and screening for infectious disease (1 source)Encounter for screening for other viral diseases; Translations: [ENC SCREENING FOR OTH VIRAL DZ]Onset: 84-57-6503LfwouxlpNhogisn control disorders, NEC (20 sources)Impulse control disorder; Translations: [Impulse disorder, unspecified]Onset: 04-27-2024 Resolved: 34-76-3911DseubgnCuyclpkfhjixf (20 sources)Axillary lymphadenopathy; Translations: [Localized enlarged lymph nodes]Onset: 041709-26-1282TmmicxkrQmqk disorders (20 sources)Mixed bipolar affective disorder, moderate; Translations: [Bipolar disorder, current episode mixed,moderate]Onset: 04-27-2024 Resolved: 96-52-4661AlulofuVjpv disorders (16 sources)Mood disordersOnset: 256820-73-7149Vauqopekdmyr breast conditions (20 sources)Large breast; Translations: [Hypertrophy of breast]Onset: 06-02-2023 Resolved: 390090-70-2140DblelcdoAtntwctmgnc chest pain (20 sources)Chest pain, unspecified; Translations: [Chest pain]Onset: 10-05-2023 Resolved: 399985-43-7866YeknmrciUkkk wounds of extremities (20 sources)Open wound of toe without complication; Translations: [Unspecified open wound of unspecified toe(s)without damage to nail, initial encounter]Onset: 03-10-2023 Resolved: 132572-78-4193RdaukvbkYeqit connective tissue disease (1 source)Pain in left foot; Translations: [PAIN IN LEFT FOOT]Onset: 02-01-2022 EpisodicOther connective tissue disease (20 sources)Pain in both feet; Translations: [Pain in right foot]Onset: 232317-82-9325RthzgmlnPsjxl gastrointestinal disorders (20 sources)Irritable bowel syndrome characterized by constipation; Translations: [Irritable bowel syndrome with constipation]Onset: 08-17-2024 Resolved: 175489-18-5545TjgervaOjjop gastrointestinal disorders (20 sources)Constipation; Translations: [Constipation, unspecified]Onset: 08-17-2024 Resolved: 392652-40-7050WuxpkavfPrqgs liver diseases (20 sources)Steatosis of liver; Translations: [Fatty (change of) liver, not elsewhere classified]Onset: 08-17-2024 Resolved: 277482-80-5621MhzrhmrAbqqm liver diseases (4 sources)Abnormal levels of other serum enzymes; Translations: [ABNORMAL LEVELS OTHER SERUM ENZYMES]Onset: 35-98-7269JzlaxvrtMsaii nervous system disorders (20 sources)Circadian rhythm sleep disorder of shift work type; Translations: [Circadian rhythm sleep disorder,shift work type]Onset: 04-27-2024 Resolved: 330236-18-7514EjzudbkMzluo nervous system disorders (20 sources)Postoperative pain ; Translations: [Other acute postprocedural pain] Onset: 08-17-2024 Resolved: 334591-26-8358LmdwbhxxGlork non-traumatic joint disorders (4 sources)Pain in left ankle and joints of left foot; Translations: [PAIN IN LEFT ANKLE]Onset: 01-40-8115EqhumgpwEztjg non-traumatic joint disorders (2 sources)Ankle pain; Translations: [Ankle Pain]Onset: 70-97-7803DsbxavdlTfarp screening for suspected conditions (not mental disorders or infectious disease) (20 sources)Elevated liver enzymes level; Translations: [Abnormal results of liver function studies]Onset: 02-25-2022 Resolved: 25-78-2451XhvjldqgRujuz upper respiratory disease (20 sources)Epistaxis; Translations: [Epistaxis]Onset: EpisodicResidual codes; unclassified (20 sources)Flushing; Translations: [Flushing]Onset: 03-10-2023 Resolved: 906427-61-6482UvjwhqvaXvcquwjrvso; intervertebral disc disorders; other back problems (20 sources)Backache; Translations: [Neck pain]Onset: 12-02-2022 Resolved: 515189-34-7643GnjfdrgrWpmlnbbwtowl (16 sources)Onset: Results Test NameValueInterpretationReference RangeFacilityGlucose (Bld) [Mass/Vol]on 55-63-7878Lmrltvw Blood, IRK600 mg/dLNOMS HealthcareInterpretation and review of laboratory resultsAbnormalBoone Hospital Center IixmleuiywDuU8w (Bld) [Mass fraction]on 89-52-2811Fycndixddzrbwc and review of laboratory resultsNormMain Line Health/[facility] HealthcareLaboratory - Hematology and Cell countson 12-01-2024 HbA1c (Bld) [Mass fraction]5.9 %NOMS HealthcareOffice Visiton 62-12-5609Bdsznu- up [id number] Karma Whitehead 1980 F Date Provider Department Center 11/23/2024 245-RENETTA CARLOS [facility] Family History Problem Relation Age of Onset Diabetes Mother Hyperlipidemia Mother Other Father Family Status - Relation Status Age at Mother Alive Father Level of Service:49239 [place] OFFICE/OUTPATIENT NEW MODERATE MDM 45 MINUTES Reason for Visit and Comments: Hyperlipidemia [182] Obesity [5362219011] Diabetes [34] Anemia [705010] Patient is here today for surgery clearance for a breast re [Other] Follow-up [905038] - Patient is a usually seen at the [facility] office.Patient states she need to have a stress test which need to be approved. Patient is unable to treadmill due to bilateral broken ankles 5 months agoNTriHealth McCullough-Hyde Memorial Hospitaltone Analysison 78-06-0279Jblnqti descriptionSee [facility] Luther[facility] HospitalComment on above:Result Comment: (NOTE) Specimen consists of one brown and gonzalez calculus. The total weight is 21 mg.Performed By: #### JANA GUERRERO [facility] #### [address] [place] [address] Duplicating Machine Mechanic: Domenica Velázquez [facility] Comment on above:Result Comment: (NOTE) Calculi composed primarily of calcium oxalate monohydrate. INTERPRETIVE INFORMATION: Calculi (Stone) analysis Calculi are the products of physiological processes that yield crystalline compounds in a matrix of biological compounds and blood. Matrix components are not reported. The clinically significant crystalline components identified in calculi specimens are reported. Gross description may not be consistent with composition determined by FTIR analysis. Performed By: Karaz [address] [place] [address] Control Cabinet Assembler: Tony Rodrigez MD, PhD CLIA Number: [id number] By: #### JANA GUERRERO [facility] #### [facility] [address] [place] [address] Duplicating Machine Mechanic: Domenica Velázuqez LKMlhz80 [facility]rville HospitalComment on above:Performed By: #### JANA GUERRERO [facility] #### [facility] [address] [place] [address] Duplicating Machine Mechanic: Cristin Story 86-12-4450Bgjda gap [Moles/Vol]12 mmol/L9 - 16 mmol/LBon [facility], IncCalcium [Mass/Vol]8.8 mg/dL8.6 - 10.4 mg/dLBon [facility], IncChloride [Moles/Vol]106 mmol/L98 - 107 mmol/LBon [facility], IncCO2 [Moles/Vol]23 mmol/L20 - 31 mmol/LBon [facility] Creatinine [Mass/Vol]0.7 mg/dL0.50 - 0.90 mg/dLBon [facility], IncEst, Glom Filt Rate- PINFBon [facility], IncComment on above: These results are not intended [...] therapy that affects renal tubular secretion. Glucose [Mass/Vol]118 mg/lBSvzf76 - 99 mg/dLBon [facility] Interpretation and review of laboratory resultsAbnormalBon [facility] Potassium [Moles/Vol]3.7 mmol/L3.7 - 5.3 mmol/LBon [facility], IncSodium [Moles/Vol]141 mmol/L136 - 145 mmol/LBon [facility], IncUrea nitrogen [Mass/Vol]15 mg/dL6 - 20 mg/dLBon [facility], IncUrea nitrogen/Creatinine [Mass ratio]21 mg/mgHigh9 - 20Bon [facility] Basic Metabolic Profon 03-66-9024Abolv gap [Moles/Vol]12 mmol/LNormal9-16[facility], IncComment on above:Performed By: #### JANA GUERRERO [facility] #### [facility] [address] [place] [address] Duplicating Machine Mechanic: Domenica Velázquez MDBUN/CRE Mhdzt40Mnvm6-26DsninSelect Medical Specialty [facility], Inc Comment on above:Performed By: #### JANA GUERRERO [facility] #### [facility] [address] [place] [address] Dr. [place], [place] [id number] Duplicating Machine Mechanic: Domenica Velázquez MDCalcium [Mass/Vol]8.8 mg/dLNormal8.6-10.4[facility], IncComment on above:Performed By: #### [facility] #### [address] [place], [place] [id number] Duplicating Machine Mechanic: STANLEY Storyhloride [Moles/Vol]106 mmol/DCheytj18-169MonguSelect Medical Specialty Hospital [facility], IncComment on above:Performed By: #### JANA GUERRERO [facility] #### [address] [place], [place] [phone] Duplicating Machine Mechanic: Domenica Velázquez MDCO2 [Moles/Vol]23 mmol/LKxgjom47-81WjkoaSelect Medical Specialty Hospital [facility], IncComment on above:Performed By: #### [facility]ITAL[facility] #### [address] [place], [place] [id number] Duplicating Machine Mechanic: STANLEY Storyreatinine [Mass/Vol]0.7 mg/dLNormal0.50-0.90[facility], IncComment on above:Performed By: #### [facility] #### [address] [place], [place] [phone] Duplicating Machine Mechanic: Domenica Velázquez MDGFR/1.73 sq M.predicted among non-blacks MDRD (S/P/Bld) [Vol rate/Area]mL/min/{1.73_m2}Normal>60[facility], IncComment on above:Result Comment: These results are not intended for [...] or following therapy that affects renal tubular secretion.Performed By: #### JANA GUERRERO [facility] #### [address] [place] [address] Duplicating Machine Mechanic: Domenica Velázquez MDGlucose [Mass/Vol]118 mg/jEFktr54-77GfnmzAshtabula County Medical CenterComment on above:Performed By: #### JANA GUERRERO [facility] #### [address] [place], [place] [id number] Duplicating Machine Mechanic: SERGE Storyotassium [Moles/Vol]3.7 mmol/LNormal3.7-5.3MMercy Health St. [facility] Hospital HospitalComment on above:Performed By: #### [facility] #### [address] [place], [place] [id number] Duplicating Machine Mechanic: VICENTA Storyodium [Moles/Vol]141 mmol/UPsyyvx421-978ZebipSelect Medical Specialty Hospital - [facility], IncComment on above:Performed By: #### [facility] #### [address] [place], [place] [phone] Duplicating Machine Mechanic: Domenica Velázquez MDUrea nitrogen [Mass/Vol]15 mg/dLNormal6-20[facility], IncComment on above:Performed By: #### [facility] #### [address] [place] [address] Duplicating Machine Mechanic: Domenica Velázquez [facility] with Auto Differentialon 68-34-5621Dobuzinuf (Bld) [#/Vol]0.07 10*3/uLBon Secours Doctors HospitalBasophils/100 WBC (Bld)1 %0 - 2 %[facility] HealthEosinophils (Bld) [#/Vol]0.38 10*3/uLBon Secours Doctors HospitalEosinophils/100 WBC (Bld)3 %1 - 4 %[facility] Medical CenterErythrocyte distribution width (RBC) [Ratio]15.0 %High11.8 - 14.4 %[facility] Hematocrit (Bld) [Volume fraction]38.8 %36.3 - 47.1 %[facility] Hemoglobin (Bld) [Mass/Vol]12.7 g/dL11.9 - 15.1 g/dLBon [facility] Immature granulocytes (Bld) [#/Vol]0.13 10*3/uLBon [facility], IncImmature granulocytes/100 WBC (Bld)1 %Pvjc4Vjg [facility], IncInterpretation and review of laboratory resultsAbnormalBon [facility], IncLymphocytes/100 WBC (Bld)24 %24 - 43 %[facility] CenterLymphocytes/100 WBC (Bld)3.36 %[facility] (RBC) [Entitic mass]28.5 pg25.2 - 33.5 pgBon [facility] HospitalHC (RBC) [Mass/Vol]32.7 g/dL28.4 - 34.8 g/dLBon [facility] HospitalV (RBC) [Entitic vol]87.0 fL82.6 - 102.9 fLBon [facility] Monocytes/100 WBC (Bld)5 %3 - 12 %[facility] CenterMonocytes/100 WBC (Bld)0.69 %[facility] CenterNeutrophils/100 WBC (Bld)66 %High36 - 65 %[facility] CenterNucleated RBC/100 WBC (Bld) [Ratio]0.0 %0.0 per 100 WBCBon Secours Memorial Regional Medical CenterPlatelet mean volume (Bld) [Entitic vol]10.3 fL8.1 - 13.5 fL [facility] HealthPlatelets (Bld) [#/Vol]316 10*3/uLBon SecBethesda North HospitalRBC (Bld) [#/Vol]4.46 10*6/uL3.95 - 5.11 m/[facility] Segmented neutrophils/100 WBC (Bld)9.43 %HighBon Secours Memorial Regional Medical CenterWBC other (Bld) [#/Vol]14.1HighWellmont Health SystemCBC with Diffon [id number]. Basophil0.07 k/uLNormal0.00-0.20[facility] Comment on above:Performed By: #### JEFFERY GUERRERO [facility] #### [facility] [address] [place] [address] [address] [place], [place] [phone] Duplicating Machine Mechanic: Son Story.Imm.Granulocyte0.13 k/uLNormal0.00-0.30[facility], IncComment on above:Performed By: #### JADA GUERREROMODESTO STATE HOSPITALJin [facility] #### [address] [place], [place] [phone] Duplicating Machine Mechanic: Son Story.Neutrophil (Seg)9.43 k/uLHigh1.50-8.10[facility], IncComment on above:Performed By: #### JANA GUERRERO [facility] #### [address] [place], [place] [address]83 Duplicating Machine Mechanic: Domenica Velázquez MDBasophils/100 WBC (Bld)1 %Normal0-2MMercy Health St. [facility] Hospital HospitalComment on above:Performed By: #### JADA GUERREROCOREWE[facility] #### [address] [place], [place] [phone] Duplicating Machine Mechanic: Domenica Velázquez MDEosinophils (Bld) [#/Vol]0.38 10*3/uLNormal 0.00-0.44[facility], IncComment on above:Performed By: #### JANA GUERRERO [facility] #### [address] [place], [place] [phone] Duplicating Machine Mechanic: Domenica Velázquez MDEosinophils/100 WBC (Bld)3 %Normal1-4[facility] HospitalComment on above:Performed By: #### [facility] #### [address] [place] [address] Duplicating Machine Mechanic: Domenica Velázquez MDErythrocyte distribution width (RBC) [Ratio]15.0 % High11.8-14.4[facility] HospitalComment on above:Performed By: #### JANA GUERRERO [facility] #### [address] [place] [address] Duplicating Machine Mechanic: Domenica Velázquez MDHematocrit (Bld) [Volume fraction]38.8 %Normal 36.3-47.1MMercy Health St. [facility] HospitalComment on above:Performed By: #### [facility] #### [address] [place], [facility]83 Duplicating Machine Mechanic: Domenica Velázquez MDHemoglobin (Bld) [Mass/Vol]12.7 g/dLNormal 11.9-15.1MMercy Health St. [facility] HospitalComment on above:Performed By: #### JANA GUERRERO [facility] #### [address] [place], [facility]83 Duplicating Machine Mechanic: Domenica Velázquez MDImmature granulocytes/100 WBC (Bld)1 %Lcdz7HseqzMckitrick Hospital HospitalComment on above:Performed By: #### [facility] #### [address] [place] [address] Duplicating Machine Mechanic: Domenica Velázquez MDLymphocytes (Bld) [#/Vol]3.36 10*3/uLNormal 1.10-3.70[facility] HospitalComment on above:Performed By: #### JANA GUERRERO UHCG #### [facility] [address] [place] [address] Duplicating Machine Mechanic: Imelda Storymphocytes/100 WBC (Bld)24 %Dccfso43-50XruhnSelect Medical Specialty Hospital [facility], IncComment on above:Performed By: #### JANA GUERRERO [facility] #### [address] [place], [facility]83 Duplicating Machine Mechanic: RADHA Story (RBC) [Entitic mass]28.5 znBgnucx22.2-33.5 [facility], IncComment on above:Performed By: #### JANA GUERRERO [facility] #### [address] [place], [place] [phone] Duplicating Machine Mechanic: RADHA StoryC (RBC) [Mass/Vol]32.7 g/xYQuywlo23.4-34.8[facility], IncComment on above:Performed By: #### JANA GUERRERO [facility] #### [address] [place], [place] [phone] Duplicating Machine Mechanic: SONAL StoryCV (RBC) [Entitic vol]87.0 mOVcbnbc38.6-102.9 [facility], IncComment on above:Performed By: #### JANA GUERRERO [facility] #### [address] [place] [address] Duplicating Machine Mechanic: SONAL Storyonocytes (Bld) [#/Vol]0.69 10*3/uLNormal0.10-1.20 [facility], IncComment on above:Performed By: #### JANA GUERRERO [facility] #### [address] [place], [place] [phone] Duplicating Machine Mechanic: SONAL Storyonocytes/100 WBC (Bld)5 %Normal3-12[facility], IncComment on above:Performed By: #### JANA GUERRERO CG #### [facility] [address] [place] [address] Duplicating Machine Mechanic: Racheal Story (Seg)66 %Wyuk56-67HpkevSelect Medical Specialty Hospital [facility], Inc Comment on above:Performed By: #### JANA GUERRERO CG #### [facility] [address] [place] [address] Duplicating Machine Mechanic: ISMA Story Automated0.0 per 100 WBCNormal0.0[facility], IncComment on above:Performed By: #### JANA GUERRERO CG #### [facility] [address] [place] [address] [place] [address] Duplicating Machine Mechanic: Alida Story mean volume (Bld) [Entitic vol]10.3 fL Normal8.1-13.5[facility], IncComment on above:Performed By: #### JANA GUERRERO CG #### [address] [place] [address] Duplicating Machine Mechanic: Shaniqua Story (Bld) [#/Vol]316 10*3/eHBgjcbs069-400 [facility], IncComment on above:Performed By: #### JANA GUERRERO CG #### [facility] [address] [place], [place] [phone] Duplicating Machine Mechanic: BHAVNA StoryBC (Bld) [#/Vol]4.46 10*6/uLNormal3.95-5.11[facility], IncComment on above:Performed By: #### JDAA GUERREROICAO, UHCG #### [facility] [address] [place], [place] [phone] Duplicating Machine Mechanic: JACINTO Story (Bld) [#/Vol]14.1 10*3/uLHigh3.5-11.3[facility]wich HospitalComment on above:Performed By: #### CESAR, JANA, [facility] #### [facility] [address] [place] [address] Duplicating Machine Mechanic: Domenica Velázquez [facility] BRISTOWAiden 49-52-9514QMIPUkdawg Visit ([facility]) KARMA THORNE ([id number]) 1980 F Date Time Provider Department 11/17/24 1:40 PM DAVID HDZ [facility] During your visit today, we recorded the following information about you: David Hdz MD 11/17/2024 2:24 PM Signed November 17, 2024 HPI: Karma Thorne is a 44 yo female with injury [...] fluticasone 50 mcg/actuation nasal spray Use 1 [place] in each nostril as needed. CYANOCOBALAMIN, VITAMIN [...] disturbance, mood disorder and recent psychosocial stressors. HEMATOLOGIC/LYMPHATIC/IMMUNOLOGIC:Negative for prolonged bleeding, bruising easily, and swollen nodes. ENDOCRINE: Negative for cold or heat intolerance, polyuria, polydipsia and goiter. Physical Exam: Basic physical examination reveals the patient to be in no acute distress. The patient is alert and orie (more content not included)...NormalAC[facility] ABDOMEN PELVIS W IV CONTRASTon [id number] ABDOMEN PELVIS W IV CONTRASTEXAM: CT ABDOMEN AND PELVIS WITH CONTRAST 11/17/2024 [...] Signed by: Janeth Hathaway MD 11/17/24 Final resultNormalMercy [facility] Abdomen and Pelvis W contrast Qiana . No acute findings in the abdomen or pelvis. 2. Right urinary tract stent in place. No stones along the pathway of either ureter; no hydronephrosis. Contrast DosageMHPN RIS CONSOLIDATEDEXAM: CT ABDOMEN AND PELVIS WITH CONTRAST 11/17/2024 [...] osseous abnormality. No focal soft tissue abnormality. [facility] Janeth Rojo MD - 11/17/2024 EXAM: CT ABDOMEN AND [...] of either ureter; no hydronephrosis. Contrast Dosage [facility] N2CareRadiology Study observation (narrative)[facility] N2CareCT Abdomen and Pelvis W contrast IVOrdered By: Janeth Hathaway on 14-87-5115Kon [facility] Work Phone: HCG, ,Urineon 09-58-4351Chxl HCG ( test) Ql (U)NegativeNormalNEGMercy Greenwich HospitalComment on above:Result Comment: Specimens with hCG levels near the threshold of the test (25 mIU/mL) may give a negative or indeterminate result. In such cases, another test should be performed with a new specimen in 48-72 hours. If early is suspected clinically in this setting, correlation with quantitative serum b-hCG level is suggested.Performed By: #### UA, UMEFRAO, [facility] #### [facility] [address] [place] [address] Duplicating Machine Mechanic: Domenica Velázquez MDHepatic Function Panelon [id number] [Mass/Vol]3.9 g/dL3.5 - 5.2 g/dLBon [facility] HealthAlbumin/Globulin [Mass ratio]1.3 {ratio}1.0 - 2.5Bon [facility] HealthALP [Catalytic activity/Vol] 101 U/L35 - 104 U/LBon [facility] HealthALT [Catalytic activity/Vol]51 U/L High10 - 35 U/LBon [facility] HealthAST [Catalytic activity/Vol]32 U/L10 - 35 U/LBon [facility] Hospitaly HealthBilirubin [Mass/Vol]mg/dL0.00 - 1.20 mg/dLBon [facility]Do[facility] Hospitaly HealthBilirubin.direct [Mass/Vol]mg/dL0.00 - 0.30 mg/dLBon [facility]Do[facility] Hospitaly HealthBilirubin.indirect [Mass/Vol]Can not be calculated0.0 - 1.0 mg/dLBon [facility] Centerours [facility]y HealthInterpretation and review of laboratory resultsAbnormalBon SecDoctors Hospitaly HealthProtein [Mass/Vol]6.9 g/dL6.6 - 8.7 g/dLBon [facility] HealthLipaseon 47-76-6968Nquoxw [Catalytic activity/Vol]25 U/L13 - 60 U/LBon [facility] HealthLipase [Catalytic activity/Vol]25 U/WTlfiwk24-62ShamzSelect Medical [facility]ty [facility], IncComselect specialty hospital[facility] on above:Performed By: #### LIVP, LIP #### [facility] [address] [place] [address] Duplicating Machine Mechanic: Domenica Velázquez MDLiver Profileon 02-96-5430Jqiwrxn [Mass/Vol]3.9 g/dLNormal3.5-5.2[facility] HospitalComment on above:Performed By: #### LIVP, LIP #### [address] [place], [place] [address]183 Duplicating Machine Mechanic: Domenica Velázquez MDAlbumin/Glob Ratio1.3Opaffs6.0-2.5MerPremier Health [facility] North HospitalComment on above:Performed By: #### LIVP, LIP #### [address] [place] [address] Duplicating Machine Mechanic: Gloria Storykaline Jbqz665 U/XEnrzse50-557Tgraa [facility]iffin HospitalComment on above:Performed By: #### LIVP, LIP #### [address] [place] [address] Duplicating Machine Mechanic: Domenica Velázquez MDALT [Catalytic activity/Vol]51 U/ADefu94-99Lpklh [facility] HospitalComment on above:Performed By: #### LIVP, LIP #### [address] [place] [address] Duplicating Machine Mechanic: Domenica Velázquez MDAST [Catalytic activity/Vol]32 U/FUgbxrf81-97Niewv [facility] HospitalComment on above:Performed By: #### LIVP, LIP #### [address] [place] [address] Duplicating Machine Mechanic: Domenica Velázquez MDBilirubin [Mass/Vol]mg/dLNormal0.00-1.20[facility] HospitalComment on above:Performed By: #### LIVP, LIP #### [address] [place], [place] [address]383 Duplicating Machine Mechanic: Leydi Story, IndirectCan not be calculatedNormal 0.0-1.0[facility] HospitalComment on above:Performed By: #### LIVP, LIP #### [facility] [address] [place] [address] Duplicating Machine Mechanic: Domenica Velázquez MDBilirubin.indirect [Mass/Vol]mg/dLNormal0.00-0.30 [facility], IncComment on above:Performed By: #### LIVP, LIP #### [facility] [address] [place], [place] [phone] Duplicating Machine Mechanic: Domenica Velázquez MDProtein [Mass/Vol]6.9 g/dLNormal6.6-8.7[facility], IncComment on above:Performed By: #### LIVP, LIP #### [facility] [address] [place] [address] Duplicating Machine Mechanic: Domenica Velázquez MDMicroscopic Urinalysison 42-59-5042Gaehszut LM Ql (Urine sed)3+AbnormalNoneBon [facility], IncEpithelial cells LM.HPF (Urine sed) [#/Area]0 TO 2Bon [facility] HealthInterpretation and review of laboratory resultsAbnormalMountain States Health Alliance HealthRBC LM.HPF (Urine sed) [#/Area]100 /[HPF]Bon [facility], IncWBC LM.HPF (Urine sed) [#/Area]5 TO 10 [facility] HealthBon SecDoctors Hospitaly HealthNo Panel Informationon 02-75-9143Nyl SecHealth[facility] HealthUrinalysison 90-46-1049Kjwoifvqm Ql (U) NegativeNEGATIVEBon SecDoctors Hospitaly HealthGlucose Test strip (U) [Mass/Vol]3+ AbnormalNEGATIVE mg/dLBon Secours [facility] Hospitaly HealthHemoglobin Auto test strip Ql (U) 3+AbnormalNEGATIVEBon [facility] HealthInterpretation and review of laboratory resultsAbnormalBon [facility]ours [facility] Hospitaly HealthKetones (U) [Mass/Vol]TRACE AbnormalNEGATIVE mg/dLBon [facility]ours [facility] Hospitaly HealthNitrite Ql (U)PositiveAbnormal NEGATIVEBon Secours [facility] Hospitaly HealthpH (U)5.5 [pH]5.0 - 9.0[facility] Protein (U) [Mass/Vol]2+AbnormalNEGATIVE mg/dLBon [facility], IncSpecific gravity (U) [Rel density]1.0201.010 - 1.020[facility] Medical CenterUrobilinogen Qn (U)Normal0.0 - 1.0 EU/dLBon [facility] Urinalysis, Routineon 49-19-7424Dmaqvqj (U)CloudyAbnormalCLEARBon [facility], IncComment on above:Performed By: #### JEFFERY GUERRERO [facility] #### [address] [place] [address] Duplicating Machine Mechanic: STANLEY Storyolor (U)RedAbnormalYELBon [facility]ours [facility] Comment on above:Performed By: #### JANA GUERRERO [facility] #### [address] [place], [place] [address] Duplicating Machine Mechanic: STANLEY StoryommentResults may be affected due to urine color interference.NormalFort Belvoir Community Hospital on above:Performed By: #### JANA GUERRERO [facility] #### [address] [place], [place] [phone] Duplicating Machine Mechanic: Domenica Velázquez MDLeukocyte esterase Test strip Ql (U)SMALLAbnormal NEGFort Belvoir Community Hospital on above:Performed By: #### JA[facility] GUERRERO [facility] #### [facility] [address] [place] [address] [place] [address] Duplicating Machine Mechanic: Domenica Velázquez MDBilirubin, SemiQt,UrNegativeNormalNEGMercy Bristol Hospital on above:Performed By: #### JA[facility] GUERRERO [facility] #### [address] [place] [address] Duplicating Machine Mechanic: Domenica Velázquez MDBlood, Urine3+AbnormalNEGMercy Kansas Hospital Comment on above:Performed By: #### CESAR UMICAO UHCG #### [facility] [address] [place] [address] Dr. [place], [place] 5805483 Duplicating Machine Mechanic: Domenica Velázquez MDGlucose Ql (U)3+ mg/dLAbnormalNEGMckitrick Hospital HospitalComment on above:Performed By: #### CESAR UMEFRAO UHCG #### [facility] [address] [place] [address] Dr. [place], [place] [phone] Duplicating Machine Mechanic: Domenica Velázquez MDKetones Ql (U)TRACEAbnormalNEGSelect Medical Specialty Hospital [facility], IncComment on above:Performed By: #### JANA GUERRERO CG #### [address] [place], [place] [address] Duplicating Machine Mechanic: Domenica Velázquez MDNitrite,UrPositiveAbnormalCleveland Clinic Union Hospital Comment on above:Performed By: #### JANA GUERRERO CG #### [address] [place], [place] [address]83 Duplicating Machine Mechanic: SERGE Story,Ur5.4Oqaknt6.0-9.0[facility], IncComment on above:Performed By: #### JANA GUERRERO CG #### [facility] [address] [place] [address] Dr. [place], [place] [phone] Duplicating Machine Mechanic: SERGE Storyrotein Ql (U)2+ mg/dLAbnormalNEGMckitrick Hospital HospitalComment on above:Performed By: #### CESAR UMCHERYL UHCG #### [facility] [address] [place] [address] Dr. [place], [place] 08[address] Duplicating Machine Mechanic: VICENTA Storypec. [place],Ur1.432Plpjuu5.010-1.020[facility] HospitalComment on above:Performed By: #### JA[facility] GUERRERO [facility] #### [facility] [address] [place], [place] [address] Duplicating Machine Mechanic: Domenica Velázquez MDUrobilinogen,UrNormalNormal0.0-1.0[facility], IncComment on above:Performed By: #### JA[facility] GUERRERO [facility] #### [facility] [address] [place], [place] [address] Duplicating Machine Mechanic: Domenica Velázquez MDUrinalysis,Microon 96-29-6973Hjvhvcls4+Abnormal NONESelect Medical Specialty [facility], IncComment on above:Performed By: #### JA[facility] GUERRERO [facility] #### [facility] [address] [place] [address] Dr. [place], [place] [phone] Duplicating Machine Mechanic: Domenica Velázquez MDEpithelial cells LM Ql (Urine sed)0 TO 2Adltwg7-27 [facility], IncComment on above:Performed By: #### JANA GUERRERO [facility] #### [facility] [address] [place] [address] Dr. [place], [place] [phone] Duplicating Machine Mechanic: Eliana Story RBC'sGREATER THAN 285Taqvnk9-0QjvcdAshtabula County Medical CenterComment on above:Performed By: #### JANA GUERRERO [facility] #### [facility] [address] [place] [address] Dr. [place], [place] 136[address] Duplicating Machine Mechanic: Eliana Story WBC's5 TO 27Dqfmpo7-9RnlitSelect Medical Specialty Hospital [facility], Inc Comment on above:Performed By: #### JANA GUERRERO [facility] #### [facility] [address] [place] [address] Duplicating Machine Mechanic: Eliana Story Preg (Lab)on 49-54-8620XJF ( test) Ql (U)NegativeNEGATIVEBon Secours Doctors HospitalComment on above:Specimens with hCG levels near the threshold of the test (25 mIU/mL) may give a negative or indeterminate result. In such cases, another test should be performed with a new specimen in 48-72 hours. If early is suspected clinically in this setting, correlation with quantitative serum b-hCG level is suggested. Estella Velásquez Doctors HospitalXR ANKLE 3V AP/LAT/OBL BILon 26-68-7064FA ANKLE 3V AP/LAT/OBL KVNG* * *Final Report* * * DATE OF [...] with remote trauma. No other significant abnormality. IMPRESSION: Moderate degenerative changes left ankle. Mild degenerative changes right ankle. Customer Support Agent: DAVIDA Transcribe Date/Time: Nov 18 2024 12:03P Dictated by : MARC HAHN MD This examination was interpreted and the report reviewed and electronically signed by: MARC HAHN MD on Nov 18 2024 12:07PM EST [id number] Health Akron CampusXR WRIST RIGHT (MIN 3 VIEWS)on 77-52-7354MJ WRIST RIGHT (MIN 3 VIEWS)EXAMINATION: 3 XRAY VIEWS OF THE RIGHT WRIST [...] Signed by: Mark Lopez MD 11/17/24 Final resultNormGrand Lake Joint Township District Memorial Hospital Wrist - right 3 Viewson 11-17-2024 Small focus of lucency and surrounding punctate areas of increased density projecting along the proximal pole the scaphoid bone which could be due to prior trauma or postop changes but is indeterminate. Recommend orthopedic follow-up Mild widening of the scapholunate space suggestive of ligamentous instability with no obvious acute fracture. Recommend follow-up. 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 [facility] CONSOLIDATEDEXAMINATION: 3 XRAY VIEWS OF THE RIGHT WRIST [...] mild soft tissue swelling around the wrist. [facility] Mark Hinojosa MD - 11/17/2024 EXAMINATION: 3 XRAY VIEWS [...] along the radiocarpal joint and diffuse osteopenia. [facility] N2CareRadiology Study observation (narrative)[employer]XR Wrist - right 3 ViewsOrdered By: Mark Lopez on 64-71-1928Ttx [facility] Work Phone: Cult,Urineon 73-64-2746Gykx,UrineSpecimen Description .CLEAN CATCH URINE Special Requests Site: Urine Culture STREPTOCOCCUS AGALACTIAE (GROUP B) <15365 CFU/ML Group B strep is identified at any colony count in a female who could potentially be based on age only. Group B strep isolated in urine at any colony count is considered a surrogate for vaginal rectal colonization in the context of determining quincy- therapy. Treatment for UTI or asymptomatic bacteriuria should be based on colony count and clinical symptoms and not on the presence of the organism alone. Identification by MALDI-TOF Report Status FINAL 11/16/2024NormalSelect Medical Specialty [facility], IncComment on above: Performed By: #### CESAR, JANA, [facility] #### [facility] [address] [place] [address] [place] [address] Duplicating Machine Mechanic: KATHYA Story 12 LeadOrdered By: Onel Keith on 11-15-2024 Atrial Bnpr42NREPgo [email or web address] Phone: P Thik71dnoutlvLij [email or web address] Phone: P-R Sbdyfump802 utPrizeBox™ Phone: Q-T Ppmylyra548 [employer]ze[employer]™ Phone: QRS Hltmiimf73 [employer]ze[employer]™ Phone: QTc Calculation (Vale)435 msBon [facility] Work Phone: R Zxhk82sxmemciSyr [facility] Work Phone: T Ogcv01ubssnizEov [facility] Work Phone: Ventricular Nmbc66UOWVab [email or web address] Phone: Bon [email or web address] Phone: EKG 12 Leadon 44-31-7263Cfudxo sinus rhythm Normal ECG When compared with ECG of 13-Jan-2024 14:59, No significant change was found Confirmed by Onel Keith ([id number]) on 11/15/2024 11:10:53 [facility] Onel Keith MD - 11/15/2024 Normal sinus rhythm Normal ECG When compared with ECG of 13-Jan-2024 14:59, No significant change was found Confirmed by Onel Keith ([id number]) on 11/15/2024 11:10:53 PM [facility] [employer] TechnologiesFLUORO FOR SURGICAL PROCEDURESon 12-43-7135OLLUKA FOR SURGICAL PROCEDURESRadiology exam is complete. No Radiologist dictation. Please follow up with ordering provider. Final resultNormalMercy Greenwich HospitalGlucose, Whole Bloodon 24-74-2710Qgzycpo [Mass/Vol]83 mg/dL74 - 100 mg/dLBon [facility] Glucose [Mass/Vol]83 mg/fIYggfyz25-354Fszhf [facility] HospitalGlucose [Mass/Vol]83 mg/dL74 - 100 mg/dLBon [facility] CenterGlucose [Mass/Vol]83 mg/hVJvphpt41-979Bfmte [facility] HospitalGuidance-- during surgeryon [id number] exam is complete. No Radiologist dictation. Please follow up with ordering provider. PN RIS CONSOLIDATEDBasic Metabolic Panelon 21-43-1491Letwu gap [Moles/Vol]12 mmol/L9 - 16 mmol/LBon [facility] CenterTrapit [facility]3Leaf [facility] CenterCalcium [Mass/Vol]8.9 mg/dL8.6 - 10.4 mg/dLBon [facility], IncChloride [Moles/Vol]103 mmol/L98 - 107 mmol/LBon [facility], IncCO2 [Moles/Vol]23 mmol/L20 - 31 mmol/LBon [facility], IncCreatinine [Mass/Vol]0.7 mg/dL0.50 - 0.90 mg/dLBon [facility] Est, Glom Filt Rate- PINFBon [facility], IncComment on above: These results are not intended [...] therapy that affects renal tubular secretion. Glucose [Mass/Vol]108 mg/tYExoa67 - 99 mg/dLBon [facility] Interpretation and review of laboratory resultsAbnormalBon [facility] Potassium [Moles/Vol]3.6 mmol/LLow3.7 - 5.3 mmol/LBon [facility], IncSodium [Moles/Vol]138 mmol/L136 - 145 mmol/LBon [facility], IncUrea nitrogen [Mass/Vol]14 mg/dL6 - 20 mg/dLBon [facility], IncUrea nitrogen/Creatinine [Mass ratio]20 mg/mg9 - 20Bon [facility] CenterBasic Metabolic Profon 28-37-2467Fzgrm gap [Moles/Vol]12 mmol/LNormal9-16[facility], IncComment on above:Performed By: #### JANA GUERRERO CURT #### [facility] [address] [place] [address] [place] [address] Duplicating Machine Mechanic: CHINTAN Story/CRE Xqpoz58Frtgfr3-83Iujxk [facility] Comment on above:Performed By: #### JANA GUERRERO CURT #### [facility] [address] [place], [place] [phone] Duplicating Machine Mechanic: STANLEY Storyalcium [Mass/Vol]8.9 mg/dLNormal8.6-10.4[facility], IncComment on above:Performed By: #### [facility]ERO [facility] #### [address] [place], [place] [address] Duplicating Machine Mechanic: STANLEY Storyhloride [Moles/Vol]103 mmol/PQheagd41-439NlkkwSelect Medical Specialty [facility], IncComment on above:Performed By: #### JANA GUERRERO [facility] #### [address] [place], [place] [phone] Duplicating Machine Mechanic: STANLEY StoryO2 [Moles/Vol]23 mmol/UUuodxw86-82RvfizSelect Medical Specialty Hospital [facility], IncComment on above:Performed By: #### JANA GUERRERO [facility]ITALW[facility] #### [address] [place] [phone] Duplicating Machine Mechanic: STANLEY Storyreatinine [Mass/Vol]0.7 mg/dLNormal0.50-0.90[facility], IncComment on above:Performed By: #### JANA GUERRERO [facility] #### [address] [place] [phone] Duplicating Machine Mechanic: Domenica Velázquez MDGFR/1.73 sq M.predicted among non-blacks MDRD (S/P/Bld) [Vol rate/Area]mL/min/{1.73_m2}Normal>60MerWaterbury HospitalComment on above:Result Comment: These results are not intended for [...] or following therapy that affects renal tubular secretion.Performed By: #### JANA GUERRERO CG #### [address] [place] [address] Duplicating Machine Mechanic: Domenica Velázquez MDGlucose [Mass/Vol]108 mg/iOFaki89-22FtmhdAshtabula County Medical CenterComment on above:Performed By: #### JANA GUERRERO CG #### [address] [place], [place] [phone] Duplicating Machine Mechanic: SERGE Storyotassium [Moles/Vol]3.6 mmol/LLow3.7-5.3MAshtabula County Medical CenterComment on above:Performed By: #### JANA GUERRERO CG #### [address] [place] [address] Duplicating Machine Mechanic: VICENTA Storyodium [Moles/Vol]138 mmol/MKwcoum748-496BsqacSelect Medical Special[facility], IncComment on above:Performed By: #### JANA GUERRERO CG #### [address] [place] [address] Duplicating Machine Mechanic: Domenica Velázquez MDUrea nitrogen [Mass/Vol]14 mg/dLNormal6-20[facility], IncComment on above:Performed By: #### JANA GUERRERO CG #### [address] [place] [address] Duplicating Machine Mechanic: Domenica Velázquez [facility] BRISTOWBC with Auto Differentialon 11-20-4573Ldximatjy (Bld) [#/Vol]0.07 10*3/uLBon Secours Mercy HealthBasophils/100 WBC (Bld)1 %0 - 2 %[facility] HealthEosinophils (Bld) [#/Vol]0.30 10*3/uLBon Secours Mercy HealthEosinophils/100 WBC (Bld)3 %1 - 4 %[facility] HealthErythrocyte distribution width (RBC) [Ratio]14.6 %High11.8 - 14.4 %[facility] Hematocrit (Bld) [Volume fraction]40.0 %36.3 - 47.1 %[facility] Hemoglobin (Bld) [Mass/Vol]13.0 g/dL11.9 - 15.1 g/dLBon [facility] Immature granulocytes (Bld) [#/Vol]0.09 10*3/uLBon [facility], IncImmature granulocytes/100 WBC (Bld)1 %Cdai5Huy [facility], IncInterpretation and review of laboratory resultsAbnormalBon [facility], IncLymphocytes/100 WBC (Bld)29 %24 - 43 %[facility] Medical CenterLymphocytes/100 WBC (Bld)3.00 %[facility] HospitalH (RBC) [Entitic mass]28.4 pg25.2 - 33.5 pgBon Wayne HospitalHC (RBC) [Mass/Vol]32.5 g/dL28.4 - 34.8 g/dLBon Wayne HospitalV (RBC) [Entitic vol]87.3 fL82.6 - 102.9 fLBon [facility]ours Memorial [facility] Center Monocytes/100 WBC (Bld)6 %3 - 12 %[facility] CenterMonocytes/100 WBC (Bld)0.57 %[facility] Medical CenterNeutrophils/100 WBC (Bld)60 %36 - 65 %[facility] Medical CenterNucleated RBC/100 WBC (Bld) [Ratio]0.0 %0.0 per 100 WBCBon Secours Memorial Regional Medical CenterPlatelet mean volume (Bld) [Entitic vol]10.6 fL8.1 - 13.5 fL [facility] Medical CenterPlatelets (Bld) [#/Vol]323 10*3/uLBon [facility], IncRBC (Bld) [#/Vol]4.58 10*6/uL3.95 - 5.11 m/uLBon [facility] Segmented neutrophils/100 WBC (Bld)6.26 %[facility] Medical CenterWBC other (Bld) [#/Vol]10.3Bon SecHospital Sisters [facility] St[facility] Medical CenterCBC with Diffon 28-22-8127And. Basophil0.07 k/uLNormal0.00-0.20MerPremier Health Miami Valley Hospital North HospitalComment on above:Performed By: #### JANA GUERRERO [facility] #### [address] [place], [place] [phone] Duplicating Machine Mechanic: MDAbs. JezImm.Granulocyte0.09 k/uLNormal0.00-0.30MerPremier Health Miami Valley Hospital North HospitalComment on above:Performed By: #### JANA GUERRERO [facility] #### [address] [place] [address] Duplicating Machine Mechanic: Son Story.Neutrophil (Seg)6.26 k/uLNormal1.50-8.10MerPremier Health Miami Valley Hospital North HospitalComment on above:Performed By: #### JANA GUERRERO [facility]ITALW[facility] #### [address] [place] [address] Duplicating Machine Mechanic: Domenica Velázquez MDBasophils/100 WBC (Bld)1 %Normal0-2Mer[facility] HospitalComment on above:Performed By: #### JANA GUERRERO [facility] #### [address] [place] [address] Duplicating Machine Mechanic: Domenica Velázquez MDEosinophils (Bld) [#/Vol]0.30 10*3/uLNormal 0.00-0.44MerPremier Health Miami Valley Hospital North HospitalComment on above:Performed By: #### JANA GUERRERO [facility]ITALWale #### [address] [place] [address] Duplicating Machine Mechanic: ARELIS Storyosinophils/100 WBC (Bld)3 %Normal1-4MerPremier Health Miami Valley Hospital North HospitalComment on above:Performed By: #### JANA GUERRERO [facility]ITALW[facility] #### [address] [place], [facility]83 Duplicating Machine Mechanic: Domenica Velázquez MDErythrocyte distribution width (RBC) [Ratio]14.6 % High11.8-14.4[facility] HospitalComment on above:Performed By: #### JANA GUERRERO [facility] #### [address] [place], [facility]83 Duplicating Machine Mechanic: Domenica Velázquez MDHematocrit (Bld) [Volume fraction]40.0 %Normal 36.3-47.1MMercy Health St. Charles Hospital HospitalComment on above:Performed By: #### JANA GUERRERO [facility] #### [address] [place], [place] [address] Duplicating Machine Mechanic: Domenica Velázquez MDHemoglobin (Bld) [Mass/Vol]13.0 g/dLNormal 11.9-15.1MMercy Health St. [facility] Hospital HospitalComment on above:Performed By: #### JANA GUERRERO [facility] #### [address] [place], [facility]83 Duplicating Machine Mechanic: Domenica Velázquez MDImmature granulocytes/100 WBC (Bld)1 %Jetf6NsoefMckitrick Hospital HospitalComment on above:Performed By: #### JANA GUERRERO [facility] #### [address] [place], [place] [address] Duplicating Machine Mechanic: Domenica Velázquez MDLymphocytes (Bld) [#/Vol]3.00 10*3/uLNormal 1.10-3.70[facility] HospitalComment on above:Performed By: #### JA[facility] GUERRERO [facility] #### [address] [place], [place] [phone] Duplicating Machine Mechanic: Domenica Velázquez MDLymphocytes/100 WBC (Bld)29 %Vvssfv49-69Ptbkd [facility]iffin HospitalComment on above:Performed By: #### JANA GUERRERO [facility] #### [address] [place], [facility]83 Duplicating Machine Mechanic: SONAL StoryCH (RBC) [Entitic mass]28.4 txSyrkxl33.2-33.5 [facility] HospitalComment on above:Performed By: #### JANA GUERRERO [facility] #### [address] [place], [facility]83 Duplicating Machine Mechanic: RADHA StoryC (RBC) [Mass/Vol]32.5 g/xUTnpyav62.4-34.8[facility], IncComment on above:Performed By: #### JANA GUERRERO [facility] #### [address] [place], [facility]83 Duplicating Machine Mechanic: SONAL StoryCV (RBC) [Entitic vol]87.3 tOVcoxgu88.6-102.9 [facility] HospitalComment on above:Performed By: #### JANA GUERRERO [facility] #### [address] [place], [facility]83 Duplicating Machine Mechanic: SONAL Storyonocytes (Bld) [#/Vol]0.57 10*3/uLNormal0.10-1.20 [facility], IncComment on above:Performed By: #### JANA GUERRERO [facility] #### [address] [place], [facility]83 Duplicating Machine Mechanic: SONAL Storyonocytes/100 WBC (Bld)6 %Normal3-12[facility], IncComment on above:Performed By: #### JA[facility] GUERRERO [facility] #### [address] [place], [facility]83 Duplicating Machine Mechanic: Racheal Story (Seg)60 %Fzreid98-37Rjeih [facility]in HospitalComment on above:Performed By: #### JANA GUERRERO [facility]ITALW[facility] #### [address] [place] [address] Duplicating Machine Mechanic: ISMA Story Automated0.0 per 100 WBCNormal0.0[facility] HospitalComment on above:Performed By: #### JANA GUERRERO [facility]ITALW[facility] #### [address] [place] [address] Duplicating Machine Mechanic: Alida Story mean volume (Bld) [Entitic vol]10.6 fL Normal8.1-13.5[facility] HospitalComment on above:Performed By: #### JANA GUERRERO [facility]ITALW[facility] #### [address] [place] [address] Duplicating Machine Mechanic: Shaniqua Story (Bld) [#/Vol]323 10*3/yHFuxqro652-823 [facility] HospitalComment on above:Performed By: #### JANA GUERRERO [facility]ITALW[facility] #### [address] [place] [address] Duplicating Machine Mechanic: JASPREET Story (Bld) [#/Vol]4.58 10*6/uLNormal3.95-5.11[facility] HospitalComment on above:Performed By: #### JANA GUERRERO CG #### [address] [place] [address] Duplicating Machine Mechanic: JACINTO Story (Bld) [#/Vol]10.3 10*3/uLNormal3.5-11.3MMercy Health St. Charles Hospital HospitalComment on above:Performed By: #### JANA GUERRERO CG #### [address] [place] [address] Duplicating Machine Mechanic: Domenica Velázquez, MDCT ABDOMEN PELVIS WO CONTRASTon [id number] ABDOMEN PELVIS WO CONTRASTEXAM: CT ABDOMEN AND PELVIS WITHOUT CONTRAST 11/14/2024 [...] Signed by: Mickey Yates MD 11/14/24 Final resultNormalMercy [facility] Abdomen and Pelvis WO contraston . 5 mm calculus in the distal right ureter with borderline right hydroureter. 2. Fatty liver. MHPN RIS CONSOLIDATEDEXAM: CT ABDOMEN AND PELVIS WITHOUT CONTRAST 11/14/2024 [...] osseous abnormality. No focal soft tissue abnormality. [facility] Mickey De La O MD - 11/14/2024 EXAM: CT ABDOMEN AND [...] with borderline right hydroureter. 2. Fatty liver. [facility] Medical CenterRadiology Study observation (narrative)[facility] Medical CenterCT Abdomen and Pelvis WO contrastOrdered By: Mickey Yates on 44-92-4775Zua [facility] Work Phone: Urinalysis w/ Microon 32-23-2217Bqlncgjv7+AbnormalNONE [facility], IncComment on above:Performed By: #### CESAR, UMICAO, UHCG #### [facility] [address] [place] [address] Dr. [place], [place] [phone] Duplicating Machine Mechanic: Dajuan Storyirubin, SemiQt,UrNegativeNormalNEGMerWaterbury HospitalComment on above:Performed By: #### CESAR UMEFRAO UHCG #### [facility] [address] [place] [address] Dr. [place], [place] [phone] Duplicating Machine Mechanic: Jerri Story, Urine3+AbnormalNEGSelect Medical Specialty [facility], Inc Comment on above:Performed By: #### JADA GUERREROICAO, UHCG #### [facility] [address] [place] [address] Dr. [place], [place] [phone] Duplicating Machine Mechanic: STANLEY Storylarity (U)TurbidAbnormalCLEARMercy Greenwich HospitalComment on above:Performed By: #### CESAR, UMICAO, UHCG #### [facility] [address] [place] [address] Dr. [place], [place] [address] Duplicating Machine Mechanic: STANLEY Storyolor (U)YellowNormalYELMerWaterbury Hospital Comment on above:Performed By: #### UA, UMICAO, UHCG #### [facility] [address] [place], [place] [address] Duplicating Machine Mechanic: Domenica Velázquez MDEpithelial cells LM Ql (Urine sed)0 TO 5Lhakvq0-93 [facility], IncComment on above:Performed By: #### UA, UMICAO, UHCG #### [facility] [address] [place], [place] [address] Duplicating Machine Mechanic: Domenica Velázquez MDGlucose Ql (U)3+ mg/dLAbnormalNEGMckitrick Hospital HospitalComment on above:Performed By: #### JANA GUERRERO [facility] #### [facility] [address] [place] [address] Dr. [place], [place] [phone] Duplicating Machine Mechanic: Domenica Velázquez MDKetones Ql (U)TRACEAbnormalNEGMckitrick Hospital HospitalComment on above:Performed By: #### JANA GUERRERO [facility] #### [facility] [address] [place] [address] Dr. [place], [place] [phone] Duplicating Machine Mechanic: Domenica Velázquez MDLeukocyte esterase Test strip Ql (U)NegativeNormal NEGSelect Medical Specialty Hospital - [facility], IncComment on above:Performed By: #### JANA GUERRERO [facility] #### [facility] [address] [place] [address] Dr. [place], [place] [phone] Duplicating Machine Mechanic: Mikhail Storytrite,UrNegativeNormalNEGSelect Medical Specialty [facility], Inc Comment on above:Performed By: #### JANA GUERRERO [facility] #### [facility] [address] [place] [address] Dr. [place], [place] [phone] Duplicating Machine Mechanic: SERGE Story,Ur6.7Cvtwmp3.0-9.0[facility], IncComment on above:Performed By: #### JANA GUERRERO [facility] #### [facility] [address] [place] [address] Dr. [place], [place] [phone] Duplicating Machine Mechanic: SERGE Storyrotein Ql (U)1+ mg/dLAbnormalNEGMckitrick Hospital HospitalComment on above:Performed By: #### JANA GUERRERO CG #### [facility] [address] [place] [address] [place] [address] Duplicating Machine Mechanic: VICENTA Storypec. [place],Ur1.029Wjnlxq6.010-1.020MerPremier Health [facility] HospitalComment on above:Performed By: #### JANA GUERRERO [facility] #### [facility] [address] [place], [place] [phone] Duplicating Machine Mechanic: Eliana Story RBC'sGREATER THAN 122Tyxllb1-3HepciAshtabula County Medical CenterComment on above:Performed By: #### JANA GUERRERO [facility] #### [facility] [address] [place], [place] [address] Duplicating Machine Mechanic: Eliana Story WBC's0 TO 4Hxcqry9-2QzgiiSelect Medical Specialty Hospital [facility], Inc Comment on above:Performed By: #### JANA GUERRERO [facility]ITALWale #### [facility] [address] [place], [place] [phone] Duplicating Machine Mechanic: Domenica Velázquez MDUrobilinogen,UrNormalNormal0.0-1.0[facility], IncComment on above:Performed By: #### JANA GUERRERO [facility] #### [facility] [address] [place], [place] [phone] Duplicating Machine Mechanic: Domenica Velázquez MDUrinalysis with Microscopicon 77-42-4763Ejrvocky LM Ql (Urine sed)1+AbnormalNoneBon Secours Mercy HealthBilirubin Ql (U)Negative NEGATIVEBon Secours Mercy HealthClarity (U)TurbidAbnormalClearBon Secours The Christ Hospitaly HealthColor (U)YellowYellowBon SecHealthSouth Rehabilitation Hospital [facility] HealthEpithelial cells LM.HPF (Urine sed) [#/Area]0 TO 2[facility] Hospitaly HealthGlucose Test strip (U) [Mass/Vol]3+AbnormalNEGATIVE mg/dLBon Secours Mercy HealthHemoglobin Auto test strip Ql (U)3+AbnormalNEGATIVEBon Secours Mercy HealthInterpretation and review of laboratory resultsAbnormalBon Secours Mercy HealthKetones (U) [Mass/Vol]TRACE AbnormalNEGATIVE mg/dLBon Secours The Christ Hospitaly HealthLeukocyte esterase Test strip Ql (U)NegativeNEGATIVEBon Secours Mercy HealthNitrite Ql (U)NegativeNEGATIVEBon [facility] HealthpH (U)6.5 [pH]5.0 - 9.0Bon [facility] HealthProtein (U) [Mass/Vol]1+AbnormalNEGATIVE mg/dLBon SecBethesda North HospitalRBC LM.HPF (Urine sed) [#/Area]100 /[HPF]Bon [facility], IncSpecific gravity (U) [Rel density] 1.0101.010 - 1.020Bon [facility], IncUrobilinogen Qn (U)Normal0.0 - 1.0 EU/dLBon SecBethesda North HospitalWBC LM.HPF (Urine sed) [#/Area]0 TO 2[facility] Doctors HospitalBon [facility] HealthXR ABDOMEN (KUB) (SINGLE AP VIEW)on 80-45-2618NL ABDOMEN (KUB) (SINGLE AP VIEW)EXAM: 1 VIEW XRAY OF THE ABDOMEN 11/07/2024 04:21:22 PM COMPARISON: None available. CLINICAL HISTORY: Renal calculus. ORDERING SYSTEM PROVIDED HISTORY: Renal calculus; TECHNOLOGIST PROVIDED HISTORY: Counts Include [address] [facility] Poultry Farmer Meat- Val Crow [phone] or [phone] FINDINGS: BOWEL: Nonobstructive bowel gas pattern. SOFT TISSUES: No opaque urinary calculi. Surgical clips in right upper quadrant. BONES: No acute osseous abnormality. KIDNEYS, URETERS, BLADDER: Several tiny calculi in right kidney, largest measuring about 1 to 4 mm. Multiple calcifications inpelvis, most likely representing phleboliths. IMPRESSION: 1. Several tiny calculi in the right kidney, largest measuring about 1 to 4 mm. Interpreted by: Fady Barnes MD Signed by: Fady Barnes MD 11/11/24 Final resultNormalMerWaterbury HospitalOperative Reporton [id number] ReportIndication for Surgery Retained hardware right wrist Preoperative Diagnosis Retained hardware right wrist with stiffness in the thumb with flexion Postoperative Diagnosis Retained hardware right wrist Adhesion extensor pollicis brevis Adhesion abductor pollicis longus Operation Removal Hardware Extremity Upper, PIN REMOVAL WITH TENOLYSIS, Right, Wrist Tenolysis extensor pollicis brevis Tenolysis abductor pollicis longus Surgeon(s) Nataly DALE, Ana Paula Powers (Surgeon - Primary) Metal Container Maker None Anesthesia General Leanna Le MD, Constantin Mercer (Provider) Odin Dejesus (Provider) Estimated Blood Loss Minimal Specimen(s) Pain x 1 Complications None Tourniquet Time ( T ) Single Tourniquet Cuff NS 18in x 4in [phone], Arm upper (Right), Total Time 14 Settin mmHg Fluid Count 1 L LR Indication: Patient is a 44-year-old female well-known to my practice who is suffered a fall extremity injury several months ago after a fall at home she was found in addition to other injuries of having a rightscapholunate ligament disruption and pain verified on MRI recommendations of repair of the scapholunate ligament was recommended surgery was delayed secondary to patient going on vacation and refusing surgery initially when she returned we proceeded with scapholunate ligament reconstruction using internal bracing construct using internal brace from [employer]. She then had deep pin placed across thescaphoid into the capitate for stability. Surgery went [...] been successful for initial repair. At this timepatient is 8 weeks out from surgery recommend [...] by Ana Paula Ingram MD 10/19/24 12:50 EDTNormalSelect Medical Specialty [facility] Glucose Randomon 36-87-9884Kpqcyaw [Mass/Vol]96 mg/wUPsppwp14-46 [facility] HospitalComment on above:Performed By: #### [id number] #### [address] [address]Jidgysx [Mass/Vol]124 mg/wNIgvs48-49KnyzpibzfEast Ohio Regional HospitalComment on above:Performed By: #### CD:[id number] #### [address], [place] [address]SI OR Wrist Righton [id number] OR Wrist Right This report was not created by a radiologist, physician, or advanced practice provider. The details of this surgical case can be found within the surgical operative note. The surgical Operative note is located within the patient's chart. Final Signed by: Alondra Osborn Signed (Electronic Signature): 10/19/2024 2:05 pm Transcribed DT/TM: 10/19/2024 2:05 (If Report Is Signed, Electronically Signed in Other Vendor System)Normal [facility] HospitalBasic Metabolic Panelon 76-97-6532Mbjeihmgvy Clr Calc Ksjntoby927.46NoFormerly [facility] Physician GroupComment on above:Result Comment: PERFORMED BY: [place] [address] PATHOLOGIST TOOL SPECIALIST EVELYN KOVACS M.D.Performed By: #### BMP #### [place] [address] USAGFR/1.73 sq M.predicted MDRD (S/P/Bld) [Vol rate/Area] mL/min/{1.73_m2}NormalHca [facility] Physician [facility] General HospitalComment on above:Performed By: #### BMP #### [place] [id number] USABasophils [#/volume] in Blood by Automated countOrdered By: Gio Kim on 36-79-4102Dmgsmlwbn (Bld) [#/Vol]0.0 10*3/uL0.0-0.2FOhio State Harding HospitalComment on above:Result Comment: PERFORMED BY: [place] [address] PATHOLOGIST TOOL SPECIALIST EVELYN KOVACS M.D.Performed By: #### CBC #### [place] [id number] USABasophils/100 leukocytes in Blood by Automated count Ordered By: Gio Kim on 16-24-0812Qpogtqqzn/100 WBC (Bld)0.6 %.Ohiohealth Dublin Methodist HospitalComment on above:Performed By: #### CBC #### [facility] [address] [place] [address] USACalcium [Mass/volume] in Serum or PlasmaOrdered By: Gio Kim on 50-04-2796Adzwuvb [Mass/Vol]9.2 mg/dL8.6-10.3FOhio State Harding HospitalComment on above:Performed By: #### BMP #### [facility] [address] [id number] USACapillary blood glucose measurement by glucometer (mass/volume)on 01-76-6418Biwozgi [Mass/Vol]89 mg/dLNORusk Rehabilitation CenterComment on above:Random Glucose Reference Range is dependent on time and content of last meal. Glucose of more than 200 mg/dL in a nonstressed, ambulatory subject supports the diagnosis of Diabetes Mellitus. Random Glucose Reference Range is dependent on time and content of last meal. Glucose of more than 200 mg/dL in a nonstressed, ambulatory subject supports the diagnosis of Diabetes Mellitus.Result Comment: Random Glucose Reference Range is dependent on time and content of last meal. Glucose of more than 200 mg/dL in a nonstressed, ambulatory subject supports the diagnosis of Diabetes Mellitus.Performed By: #### GLULS #### Point of Care testing ,Carbon dioxide, total [Moles/volume] in Serum or PlasmaOrdered By: Gio Kim on 04-76-4156MT5 [Moles/Vol]27.4 mmol/L21.0-31.0Ohiohealth Dublin Methodist HospitalComment on above:Performed By: #### BMP #### [place] [id number] USAChloride [Moles/volume] in Serum or PlasmaOrdered By: Gio Kim on 10-51-2473Vjlvivfw [Moles/Vol]105 mmol/U72-261TcrbvbffkOhiohealth Dublin Methodist HospitalComment on above:Performed By: #### BMP #### [address] [address] USAComplete Blood Count Auto Diffon 21-24-4341Vdwp Corpuscular HGB Conc33.7 g/uYAyrmdw57.0-35.0The [facility]oir Physician GroupComment on above:Performed By: #### CBC #### [facility] [address] [place] [address] USANRBC%0.1 /100{WBC}Normal0-0.5The [facility] Comment on above:Performed By: #### CBC #### [facility] [address] [place] [address] USAWhite Blood Count8.3 [CFU]/mLNormal3.8-11.6The [facility] Lenoir Physician GroupComment on above:Performed By: #### CBC #### [place] [address] USACreatinine [Mass/volume] in Serum or PlasmaOrdered By: Gio Kim on 02-48-5622Dcmfqgckqg [Mass/Vol]0.60 mg/dL0.60-1.20Ohiohealth Dublin Methodist HospitalComment on above:Performed By: #### BMP #### [place] [address] USAECG 12 lead ECGon 11-17-8935RDA 12 lead ECGMERCY [facility]ALTH [facility]ERSON [facility] Main [place] [address] [place] [address] Electrocardiograph Report Signed Patient: Karma Whitehead MR#: [id number] : 1980 Acct:[id number] Age/Sex: 43 / F ADM Date: 09/21/24 Loc: [place] Room: Type: [facility] Attending Dr: Shira Cardoso DO Ordering Provider: [...] Signed By Catherine Blakely MD 0 09/21/[address] [place] [address] Physician GroupEosinophils [#/volume] in Blood by Automated countOrdered By: Gio Kim on 99-47-2984Pltfumowmfr (Bld) [#/Vol]0.2 10*3/uL0.0-0.45Ohiohealth Dublin Methodist HospitalComment on above: Performed By: #### CBC #### [place] [address] USAEosinophils/100 leukocytes in Blood by Automated count Ordered By: Gio Kim on 72-39-0516Uzclmxvaulj/100 WBC (Bld)1.8 %.Ohiohealth Dublin Methodist HospitalComment on above:Performed By: #### CBC #### [place] [address] USAErythrocyte distribution width [Ratio] by Automated count Ordered By: Gio Kim on 78-71-4760Ldmoiildopn distribution width (RBC) [Ratio]14.9 %11.9-15.3FOhio State Harding HospitalComment on above: Performed By: #### CBC #### [place] [address] USAErythrocytes [#/volume] in Blood by Automated countOrdered By: Gio Kim on 59-10-0506JOA (Bld) [#/Vol]5.08 10*6/uLHigh3.60-5.00 Ohio[facility] Dublin Methodist HospitalComment on above:Performed By: #### CBC #### [place] [address] USAGLUCOSE POCT GLUCOMETERSon 03-58-5184EMRYSainte Genevieve County Memorial Hospital Glucose Poct Glucometerson 11-92-5313GAELNKN4Fpe3: Cleaned Sinai-Grace HospitalComment on above:Result Comment: PERFORMED BY: [place] [address] PATHOLOGIST TOOL SPECIALIST EVELYN KOVACS M.D.Performed By: #### GLULS #### Point of Care testing ,Glucose [Mass/volume] in Serum or PlasmaOrdered By: Gio Kim on 09-21-2024 Glucose [Mass/Vol]87 mg/cB53-061UzqrpngefOhiohealth Dublin Methodist HospitalComment on above:ADA recommended reference rangeRandom Glucose Reference Range is dependent on time and content of last meal. Glucose of more than 200 mg/dL in a nonstressed, ambulatory subject supports the diagnosisof Diabetes Mellitus. Result Comment: Random Glucose Reference Range is dependent on time and content of last meal. Glucose of more than 200 mg/dL in a nonstressed, ambulatory subject supports the diagnosis of Diabetes Mellitus. ADA recommended reference rangePerformed By: #### BMP #### [facility] [address] [phone] USAHCG ( test) IA.rapid Ql (U)Ordered By: Gio Kim on 51-34-8927KKD ( test) Ql (U)NegativeOhiohealth Dublin Methodist HospitalHCG,Urineon 41-83-9139Rzeb HCG ( test) Ql (U)NegativeNoFormerly [facility] Physician GroupComment on above:Result Comment: PERFORMED BY: [place] [address] PATHOLOGIST TOOL SPECIALIST EVELYN KOVACS M.D.Performed By: #### UHCG #### [address] [address] USAHematocrit [Volume Fraction] of Blood by Automated count Ordered By: Gio Kim on 68-43-5561Gbagllyifh (Bld) [Volume fraction]42.1 % 34.0-46.4FOhio State Harding HospitalComment on above:Performed By: #### CBC #### [address] [address] USAHemoglobin [Mass/volume] in BloodOrdered By: Gio Kim on 50-08-3552Szzzrjfpnc (Bld) [Mass/Vol]14.2 g/dL11.8-15.4FOhio State Harding HospitalComment on above:Performed By: #### CBC #### [place] [id number] USALeukocytes [#/volume] corrected for nucleated erythrocytes in Blood by Automated counOrdered By: Gio Kim on 62-64-2579RZJ corrected for nucl RBC Auto (Bld) [#/Vol]8.3 10*3/uL3.8-11.6FOhio State Harding HospitalLeukocytes [#/volume] in Blood by Automated countOrdered By: Gio Kim on 48-46-3412IFY (Bld) [#/Vol]8.3 10*3/uL3.8-11.6FOhio State Harding HospitalComment on above:Performed By: #### CBC #### [facility] [address] [place] [address] USALymphocytes [#/volume] in Blood by Automated countOrdered By: Gio Kim on 28-46-0978Ukmmiuomcwr (Bld) [#/Vol]2.5 10*3/uL1.00-4.8 [facility] Dublin Methodist HospitalComment on above:Performed By: #### CBC #### [facility] [address] [phone] USALymphocytes/100 leukocytes in Blood by Automated count Ordered By: Gio Kim on 78-03-0135Xutzadmxlep/100 WBC (Bld)30.4 %.Ohiohealth Dublin Methodist HospitalComment on above:Performed By: #### CBC #### [facility] [address] [place] [address] USAUNIVERSITY OF [facility] [Entitic mass] by Automated countOrdered By: Gio Kim on 91-96-3341VDA (RBC) [Entitic mass]28.0 pg24.7-34.3FOhio State Harding HospitalComment on above:Performed By: #### CBC #### [facility] [address] [place], [place] [address] [facility] Auto (RBC) [Mass/Vol]Ordered By: Gio Kim on 78-07-8331KKRY (RBC) [Mass/Vol]33.7 g/dL32.0-35.0Ohiohealth Dublin Methodist HospitalMCV [Entitic volume] by Automated countOrdered By: Gio Kim on 91-15-0567SEU (RBC) [Entitic vol]83.0 tR73-761YhfheqkvdOhiohealth Dublin Methodist Hospital Comment on above:Performed By: #### CBC #### [facility] [address] [place] [address] USAMonocytes [#/volume] in Blood by Automated countOrdered By: Gio Kim on 52-59-8480Kvpfnhzzp (Bld) [#/Vol]0.5 10*3/uL0.0-0.8Ohiohealth Dublin Methodist HospitalComment on above:Performed By: #### CBC #### [address] [address] USAMonocytes/100 leukocytes in Blood by Automated count Ordered By: Gio Kim on 21-86-6654Gkcxrsppm/100 WBC (Bld)6.3 %.Ohio[facility] Dublin Methodist HospitalComment on above:Performed By: #### CBC #### [address] [address] USANeutrophils [#/volume] in Blood by Automated countOrdered By: Gio Kim on 16-48-4932Fcepoyremjd (Bld) [#/Vol]5.1 10*3/uL1.8-7.7 [facility] Dublin Methodist HospitalComment on above:Performed By: #### CBC #### [facility] [address] [place] [address] USANeutrophils/100 leukocytes in Blood by Automated count Ordered By: Gio Kim on 31-83-5584Dadlbhviogb/100 WBC (Bld)60.9 %.Ohio[facility] Dublin Methodist HospitalComment on above:Performed By: #### CBC #### [address] [address] USANo Panel InformationOrdered By: Shira Cardoso on 24-29-7999Fxikusz Glucose CommentGlu2: cleaned [facility] HospitalNo Panel InformationOrdered By: Gio Kim on 76-38-2015Tqefzufie GFR (CKD-EPI)> 60.0 mL/MinOhiohealth Dublin Methodist HospitalPharmacy Creatinine Clearance (Gvmf527.46Ohiohealth Dublin Methodist HospitalNucleated erythrocytes [Presence] in Blood by Automated countOrdered By: Gio Kim on 09-21-2024 Nucleated RBC Auto Ql (Bld)0.1 /100{WBC}0-0.5FOhio State Harding Hospital Platelet mean volume [Entitic volume] in Blood by Automated countOrdered By: Gio Kim on 71-57-0990Bwmnsncq mean volume (Bld) [Entitic vol]8.8 fL6.3-10.7 [facility] Dublin Methodist HospitalComment on above:Performed By: #### CBC #### [facility] [address] [place] [address] USAPlatelets [#/volume] in Blood by Automated countOrdered By: Gio Kim on 78-83-8865Rtznqsuvb (Bld) [#/Vol]299 10*3/sI348-170WulhletzgOhiohealth Dublin Methodist HospitalComment on above:Performed By: #### CBC #### [facility] [address] [place] [address] USAPotassium [Moles/volume] in Serum or PlasmaOrdered By: Gio Kim on 62-26-6367Ciktxdkmv [Moles/Vol]3.5 mmol/L3.5-5.1FOhio State Harding HospitalComment on above:Performed By: #### BMP #### [facility] [address] [place] [address] USASerum or plasma anion gap determinationOrdered By: Gio Kim on 99-95-5979Eoehy gap [Moles/Vol]12.1 mmol/L6.0-15.0Ohio[facility] Dublin Methodist HospitalComment on above:Performed By: #### BMP #### [facility] [address] [place] [address] USASodium [Moles/volume] in Serum or PlasmaOrdered By: Gio Kim on 58-75-7811Kshkaz [Moles/Vol]141 mmol/L024-027OehsaabjgOhiohealth Dublin Methodist HospitalComment on above:Performed By: #### BMP #### [facility] [address] [place] [address] USAUrea nitrogen [Mass/volume] in Serum or PlasmaOrdered By: Gio Kim on 39-36-1959Hlcx nitrogen [Mass/Vol]11 mg/dL7-25Ohiohealth Dublin Methodist HospitalComment on above:Performed By: #### BMP #### [facility] [address] [place] [address] USATelephoneon [id number] Karma Gordon 1980 F Date Provider Department Center 09/15/2024 TAMIKO CROW [facility] No family history on fileNormalUniversity of Navarro Regional HospitalBEDSIDE GLUCOSEon 93-41-0281Uasfbfd [Mass/Vol]93 mg/tKFmsxsn38-42LdrUasqctUc Medical CenterComment on above:Performed By: #### BEDG #### [facility] ([facility]) [address] [place] [address] VIRGlucose [Mass/Vol]113 mg/cZXvqt42-75LsrNhrtycUc Medical CenterComment on above:Performed By: #### BEDG #### [facility] ([facility]) [address] [place], [place] [address] VIRPOCT , URINE (NUCG)on 90-26-9139Vyqt HCG ( test) Ql (U)NegativeNormalNegative, IndeterminateProUc Medical CenterComment on above:Performed By: #### NUCG #### [facility]) [address] [place] [address] VIRCapillary blood glucose measurement by glucometer (mass/volume)Ordered By: Shira Cardoso on 18-53-1444Bwcmfzn [Mass/Vol]136 mg/dLOhiohealth Dublin Methodist HospitalComment on above:Random Glucose Reference Range is dependent on time and content of last meal. Glucose of more than 200 mg/dL in a nonstressed, ambulatory subject supports the diagnosis of Diabetes Mellitus.Result Comment: Random Glucose Reference Range is dependent on time and content of last meal. Glucose of more than 200 mg/dL in a nonstressed, ambulatory subject supports the diagnosis of Diabetes Mellitus. PERFORMED BY: [facility] [address] [place] [address] PATHOLOGIST TOOL SPECIALIST EVELYN KOVACS M.D.Performed By: #### GLULS #### Point of Care testing ,GLUCOSE POCT GLUCOMETERSon 32-79-1492Uauteva [Mass/Vol]136 mg/dLSainte Genevieve County Memorial Hospital Comment on above:Random Glucose Reference Range is dependent on time and content of last meal. Glucose of more than 200 mg/dL in a nonstressed, ambulatory subject supports the diagnosis of Diabetes Mellitus. [facility] HealthcareGlucose [Mass/Vol]85 mg/dLSainte Genevieve County Memorial HospitalComment on above:Random Glucose Reference Range is dependent on time and content of last meal. Glucose of more than 200 mg/dL in a nonstressed, ambulatory subject supports the diagnosis of Diabetes Mellitus. [facility] Memorial HospitalGlucose Glucometer (dC) [Mass/Vol]Ordered By: Shira Cardoso on 70-86-3151Jaqfivx [Mass/Vol]Capillary blood glucose measurement by glucometer (mass/volume)Ohio[facility] Dublin Methodist HospitalComment on above:Random Glucose Reference Range is dependent on time and content of last meal. Glucose of more than 200 mg/dL in a nonstressed, ambulatory subject supports the diagnosis of Diabetes Mellitus.Glucose Poct Glucometerson 90-04-4926Npjbpia [Mass/Vol]85 mg/dLNoFormerly [facility] Physician [facility]alobusha General HospitalComment on above:Result Comment: Random Glucose Reference Range is dependent on time and content of last meal. Glucose of more than 200 mg/dL in a nonstressed, ambulatory subject supports the diagnosis of Diabetes Mellitus. PERFORMED BY: [address] [place] [id number] PATHOLOGIST TOOL SPECIALIST EVELYN KOVACS M.D.Performed By: #### GLULS #### Point of Care testing ,HCG ( test) IA.rapid Ql (U)Ordered By: Hector Barlow on 44-94-4519HKT ( test) Ql (U)Urine human chorionic gonadotropin (hCG) detection by immunoassayOhiohealth Dublin Methodist HospitalHCG ( test) Ql (U)NegativeOhiohealth Dublin Methodist HospitalHCG,Urineon 45-50-7988Xuoc HCG ( test) Ql (U)NegativeNoFormerly [facility] Physician GroupComment on above:Result Comment: PERFORMED BY: [address] [place] [address] PATHOLOGIST TOOL SPECIALIST EVELYN KOVACS M.D.Performed By: #### UHCG #### [address] [id number] USAX-ray reportOrdered By: Alin Ornelas on 93-15-1288Dkqgn reportMERCY HEALTH [place] [address] XRay Report Signed Patient: Karma Whitehead MR# : [id number] : 1980 Acct:[id number] Age/Sex: 43 / F ADM Date: 5 Loc: [place] Room: Type: [facility] Attending Dr: Shira Cardoso DO [...] Jr., D.ORosy 08/10/2024 10:43 AM Dictation Location: [place] [address] Transcribed By: [facility] 08/10/24 1043 Dictated By: Alin Ornelas Jr, DO 08/10/24 1042 Signed By: 08/10/24 1043 [facility] HospitalXR chest 1V portableon 74-77-8060ZT chest 1V portableMERCY HEALTH ANDERSON [facility]OSPITAL Main [place] [id number] XRay Report Signed Patient: Karma Whitehead MR#: [id number] : 1980 Acct:[id number] Age/Sex: 43 / F ADM Date: 08/10/24 Loc: [place] Room: Type: [facility] Attending Dr: Shira Cardoso DO Copies to: [...] Jr., D.O. 08/10/2024 10:43 AM Dictation Location: [facility] Transcribed By: [facility] 08/10/24 1043 Dictated By: Alin Ornelas Jr, DO 08/10/24 1042 Signed By: 08/10/[address] Physician GroupGlucose (Bld) [Mass/Vol]on 01-16-5825Okprwps Blood, KOT065 mg/dLNOMO HealthcareInterpretation and review of laboratory resultsAbnoCrozer-Chester Medical CenterHbA1c (Bld) [Mass fraction]on 71-77-7795Xkigdtlnoawimx and review of laboratory resultsNoCrozer-Chester Medical Center Laboratory - Hematology and Cell countson 96-79-2188KtD1m (Bld) [Mass fraction] 5.8 %[facility] HealthcareNo Panel Informationon 88-38-3366OWFR HealthcareOrders Only on 18-95-0691Jiolvx [id number] Karma Whitehead 1980 F Date Provider Department Center 08/03/2024 Elena-CHIO CARRILLO [facility] No family history on fileNormalUniversity of Navarro Regional Hospital36on 95-42-693567Kidumne is calling back to follow up onNormalUniversCleveland Clinic Euclid Hospital36Pt called stating that she needs an appeal done for stress and echo. today as this is the last day and she is having surgery 08/10 and 08/18. Notes need to be recover from [place] [facility] Abstracton [id number] Karma Whitehead 1980 F Date Provider Department Center 07/26/2024 [address]-CIQPSNOWKENZIE VASQUEZ [facility] No family history on fileNormalUniversity of Navarro Regional HospitalUrinalysis w/ Microon 28-70-0042Fvoknrvct sediment LM Ql (Urine sed)TRACEAbnoalRegional Medical CenterComment on above:Performed By: #### UA, UMICAO, UHCG #### [facility] [address] [place], [place] [address] Duplicating Machine Mechanic: Iker StorycteriaTRACEAbMarymount Hospital Comment on above:Performed By: #### UA, UMICAO, UHCG #### [facility] [address] [place] [address] Duplicating Machine Mechanic: Dajuan Storyirubin, SemiQt,UrNegativeNormalNEGSelect Medical Specialty Hospital - Boardman, IncComment on above:Performed By: #### UA, UMICAO, UHCG #### [facility] [address] [place] [address] Dr. [place], [place] [phone] Duplicating Machine Mechanic: Jerri Story, UrineNegativeSt. Rita's Hospital Comment on above:Performed By: #### UA, UMICAO, UHCG #### [facility] [address] [place] [address] Duplicating Machine Mechanic: Felice Story (ClearNormalCLEARSelect Medical Specialty Hospital - [facility], Inc Comment on above:Performed By: #### UA, UMICAO, UHCG #### [facility] [address] [place], [place] [address] Duplicating Machine Mechanic: Dominique Story (YellowNoalYAdena Regional Medical Center Comment on above:Performed By: #### UA, UMICAO, UHCG #### [facility] [address] [place], [place] [phone] Duplicating Machine Mechanic: Domenica Velázquez MDEpithelial cells LM Ql (Urine sed)0 TO 3Jvzkkm4-48 [facility], IncComment on above:Performed By: #### JANA GUERRERO [facility]G #### [facility] [address] [place] [address] Dr. [place], [place] [phone] Duplicating Machine Mechanic: Domenica Velázquez MDGlucose Ql (U)3+ mg/dLAbnormalNEGSelect Medical Specialty Hospital - [facility]man, IncComment on above:Performed By: #### JANA GUERRERO [facility]OSPITALG #### [facility] [address] [place] [address] Dr. [place], [place] [phone] Duplicating Machine Mechanic: Domenica Velázquez MDKetones Ql (U)NegativeNormalNEGSelect Medical Specialty Hospital - Boardman, IncComment on above:Performed By: #### JANA GUERRERO [facility] HOSPITALG #### [facility] [address] [place] [address] Dr. [place], [place] [phone] Duplicating Machine Mechanic: Domenica Velázquez MDLeukocyte esterase Test strip Ql (U)NegativeNormal NEGSelect Medical Specialty Hospital - Boardman, IncComment on above:Performed By: #### JANA GUERRERO [facility]OS[facility]ITALG #### [facility] [address] [place] [address] [place] [address] Duplicating Machine Mechanic: SONAL Storyucus StrandsTRACEAbnormalNONEMeThe Hospital of Central ConnecticutComment on above:Performed By: #### JANA GUERRERO [facility]OSPITALG #### [facility] [address] [place] [address] [place] [address] Duplicating Machine Mechanic: Domenica Velázquez MDNitrite,UrNegativeNormalNEGCleveland Clinic Mercy Hospital on above:Performed By: #### JANA GUERRERO CG #### [facility] [address] [place] [address] Dr. [place], [place] [phone] Duplicating Machine Mechanic: SERGE Story,Ur6.2Dhsxyu6.0-9.0[facility], IncComment on above:Performed By: #### CESAR UMEFRAO UHCG #### [facility] [address] [place] [address] Duplicating Machine Mechanic: SERGE Storyrotein Ql (U)NegativeNormalNEGSelect Medical Specialty Hospital - Boardman, IncComment on above:Performed By: #### JEFFERY GUERREROO UHCG #### [facility] [address] [place] [address] [place] [address] Duplicating Machine Mechanic: VICENTA Storypec. [place],Ur1.500Xlyj2.010-1.020[facility], IncComment on above:Performed By: #### JEFFERY GUERREROO UHCG #### [address] [place] [address] Duplicating Machine Mechanic: Eliana Story RBC's0 TO 2Zwsfgf5-7DicbrAshtabula County Medical Center Comment on above:Performed By: #### JANA GUERRERO UHCG #### [facility] [address] [place] [address] [place] [address] Duplicating Machine Mechanic: Eliana Story WBC's0 TO 8Tbutxn4-4AwkefSelect Medical Specialty Hospital - Boardman, Inc Comment on above:Performed By: #### JEFFERY GUERREROO UHCG #### [facility] [address] [place] [address] [place] [address] Duplicating Machine Mechanic: Domenica Velázquez MDUrobilinogen,UrNormalNormal0.0-1.0[facility], IncComment on above:Performed By: #### CESAR UMEFRAO UHCG #### [facility] [address] [place] [address] Dr. [place], [place] [phone] Duplicating Machine Mechanic: Domenica Velázquez MDUrinalysis with Microscopicon 96-41-6882Otpxwbfsj sediment LM Ql (Urine sed)TRACEAbnormalNoneBon Secours Doctors HospitalBacteria LM Ql (Urine sed)TRACEAbnormalNoneBon Secours Mercy HealthBilirubin Ql (U)Negative NEGATIVEBon Secours Mercy HealthClarity (U)ClearClearBon Secours Mercy Health Color (U)YellowYellowBon Secours Mercy HealthEpithelial cells LM.HPF (Urine sed) [#/Area]0 TO 2[facility] HealthGlucose Test strip (U) [Mass/Vol]3+ AbnormalNEGATIVE mg/dLBon Secours Mercy HealthHemoglobin Auto test strip Ql (U) NegativeNEGATIVEBon Secours Mercy HealthInterpretation and review of laboratory resultsAbnormalBon Secours Mercy HealthKetones (U) [Mass/Vol]NegativeNEGATIVE mg/dLBon Secours Mercy HealthLeukocyte esterase Test strip Ql (U)Negative NEGATIVEBon Secours Mercy HealthMucus Ql (Urine sed)TRACEAbnormalNoneBon Secours Mercy HealthNitrite Ql (U)NegativeNEGATIVEBon Secours Mercy HealthpH (U)6 [pH] 5.0 - 9.0[facility] HealthProtein (U) [Mass/Vol]NegativeNEGATIVE mg/dLBon Secours Mercy HealthRBC LM.HPF (Urine sed) [#/Area]0 TO 2[facility] HealthSpecific gravity (U) [Rel density]1.550Pqkz0.010 - 1.020Bon [facility] Mercy HealthUrobilinogen Qn (U)Normal0.0 - 1.0 EU/dLBon Secours Mercy HealthWBC LM.HPF (Urine sed) [#/Area]0 TO 2Bon [facility] Mercy HealthBon Secours The Christ Hospitaly HealthXR ANKLE LEFT (MIN 3 VIEWS)on 30-06-2224ZJ ANKLE LEFT (MIN 3 VIEWS)EXAMINATION: THREE XRAY VIEWS OF THE LEFT ANKLE [...] Signed by: Martir Long MD 07/16/24 Final resultNormMartins Ferry HospitalXR Ankle - left 3 Viewson . No acute abnormality. [facility] CONSOLIDATEDEXAMINATION: THREE XRAY VIEWS OF THE LEFT ANKLE 07/16/2024 11:49 am COMPARISON: None. HISTORY: ORDERING SYSTEM PROVIDED HISTORY: Pain Hx previous Surgery TECHNOLOGIST PROVIDED HISTORY: Pain Hx previous Surgery FINDINGS: There is no acute fracture or dislocation. There are old healed tibial and fibular fractures. The ankle mortise is intact. The bones are demineralized. There are no bony destructive lesions. [facility] Martir Abarca MD - 07/16/2024 EXAMINATION: THREE XRAY VIEWS [...] destructive lesions. IMPRESSION: 1. No acute abnormality. [facility] SystemRadiology Study observation (narrative)[facility] Regional Medical CenterXR HIP BILATERAL W AP PELVIS (2 VIEWS)on 08-38-0258IA HIP BILATERAL W AP PELVIS (2 VIEWS)EXAMINATION: ONE XRAY VIEW OF THE PELVIS AND [...] Signed by: Martir Long MD 07/16/24 Final resultNormMartins [facility] (2-3 VIEWS)on 07-16-2024 XR LUMBAR SPINE (2-3 VIEWS)EXAMINATION: 3 XRAY VIEWS OF THE LUMBAR SPINE [...] Signed by: Martir Long MD 07/16/24 Final resultNormalSelect Medical Specialty Hospital [facility] Board[facility], IncXR Lumbar spine 2 or 3 Viewson 07-16-2024 1. Mild multilevel spondylosis. [facility] R[facility] CONSOLIDATEDEXAMINATION: 3 XRAY VIEWS OF THE LUMBAR SPINE 07/16/2024 11:46 am COMPARISON: None. HISTORY: ORDERING SYSTEM PROVIDED HISTORY: back pain TECHNOLOGIST PROVIDED HISTORY: back pain FINDINGS: The 5 lumbar vertebral bodies are in anatomic alignment. The vertebral body heights are maintained. There is mild multilevel spondylosis and facet arthropathy. Status post cholecystectomy. [facility] Martir Abarca MD - 07/16/2024 EXAMINATION: 3 XRAY VIEWS OF THE LUMBAR SPINE 07/16/2024 11:46 am COMPARISON: None. HISTORY: ORDERING SYSTEM PROVIDED HISTORY: back pain TECHNOLOGIST PROVIDED HISTORY: back pain FINDINGS: The 5 lumbar vertebral bodies are in anatomic alignment. The vertebral body heights are maintained. There is mild multilevel spondylosis and facet arthropathy. Status post cholecystectomy. IMPRESSION: 1. Mild multilevel spondylosis. [facility] CenterRadiology Study observation (narrative)[facility] CenterXR Lumbar spine 2 or 3 ViewsOrdered By: Martir Long on 70-81-5366Rgr [facility] Work Phone: XR Pelvis and Hip - bilateral Viewson . No acute abnormality. [facility] CONSOLIDATEDEXAMINATION: ONE XRAY VIEW OF THE PELVIS AND [...] lesions. 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 [facility] Martir Laureano MD - 07/16/2024 EXAMINATION: ONE XRAY VIEW [...] hip osteoarthritis. IMPRESSION: 1. No acute abnormality. [facility] SystemRadiology Study observation (narrative)[facility] Medical CenterAbstracton [id number] Marco A Karma Banegas 1980 F Date Provider Department Center 07/08/2024 90014-OXBEPWHPKENZIE VASQUEZ [facility] [place] HeartVAS No family history on fileNormalUniversity of [facility]arro [facility] Insertion/Removal of Contraceptive Capsuleon 66-30-4541KpsqsBela Riberio LPN 06/30/2024 12:29 PM Insertion/Removal of Contraceptive [...] closed with steri-strips and pressure bandage applied: [facility] HospitalOffice Visiton 70-55-4492Hohnte-up [id number] Karma Gordon 1980 F Date Provider Department Center 06/20/2024 KENZIE MENDEZ [facility] [place] HeartBASIM No family history on file Level of Service:77509 [place] OFFICE/OUTPATIENT NEW LOW MDM 30 MINUTESNormal [facility] Health SystemIGP,APTIMA HPV,AGE GDLNon 00-56-6510TLN GDLN ACOG TESTINGNote.NOMS HealthcareComment on above:TESTS RESULT FLAG UNITS REF RANGE LAB Clinician Provided Cytology Information Source.............Cervix;Endocervix No. of containers..01 ThinPrep Vial Age Algo ACOG Rosana... 30-65 FLAG LEGEND: L-Low Normal,H-High Normal,LL-Alert Low,HH-Alert High <-Panic Low,>-Panic High,A-Abnormal,AA-Critical Abnormal Performed at: 01 =[facility] [employer] [place] [address] Kristin Matute MD, HPV APTIMANegativeNegativeNOMS HealthcareComment on above:This nucleic acid amplification test detects fourteen high- risk HPV types (16,18,31,33,35,39,45,51,52,56,58,59,66,68) without differentiation. Performed at: =[facility] [place] [address] [facility], [place] [id number] Duplicating Machine Mechanic: Kristin Matute MD, Phone: [phone] Performed at: - [facility] [address] [place], [place] [id number] Duplicating Machine Mechanic: Kristin Matute MD, Phone: [phone] IGP, APTIMA HPV, RFX 16/18,45Note.NOMS HealthcareComment on above:TESTS RESULT FLAG UNITS REF RANGE LAB DIAGNOSIS: 02 NEGATIVE FOR INTRAEPITHELIAL LESION OR MALIGNANCY. THIS SPECIMEN WAS RESCREENED PART OF OUR LINING CLOSER PROGRAM. Specimen adequacy: 02 Satisfactory for evaluation. Endocervical and/or squamous metaplastic cells (endocervical component) are present. Performed by: Aiyana Tejada, Photogrammetric Tech (ASCP) QC reviewed by: Aiyana Valadez, Photogrammetric Tech (ASCP) . 02 Note: Note 02 The [...] High,A-Abnormal,AA-Critical Abnormal Performed at: 02 [address] [facility] [address] [address] Kristin Matute MD, BRUSH-SPATULA CERVIX ENDOCERVIX [facility] HealthMM TOMOSYNTHESIS SCREENING BIon 40-01-0015[place] [address] Mammography Report Signed Patient: KARMA WHITEHEAD MR#: [id number] : 1980 Acct:[id number] Age/Sex: 43 / F ADM Date: 05/27/24 Loc: MAMMO Attending Dr: Roel Garber D.O. Ordering Physician: Roel Garber D.O. Results: Date of Service: 05/27/24 Follow Up: Procedure(s): MM tomosynthesis screening BI Accession Number(s): [id number] cc: Roel Garber D.O.; Davie Mcneal NP Patient Name: KARMA WHITEHEAD MR#: [id number] : 1980 Exam Date: 05/27/2024 Ordering Doctor: [...] Treatments None Family Cancers None LOCATION: [facility] BREAST COMPOSITION: There are scattered [...] D.O. Signed By: 05/27/241648 DD/ 47 TD/TT: Customer Support Agent:TBHRadiology, Radiologist, - 05/27/2024 [place] [address] Mammography Report Signed Patient: KARMA WHITEHEAD MR#: [id number] : 1980 Acct:[id number] Age/Sex: 43 / F ADM Date: 05/27/24 Loc: MAMMO Attending Dr: Roel Garber D.O. Ordering Physician: Roel Garber D.O. Results: Date of Service: 05/27/24 Follow Up: Procedure(s): MM tomosynthesis screening BI Accession Number(s): [id number] cc: Roel Garber D.O.; Davie Mcneal NP Patient Name: KARMA WHITEHEAD MR#: [id number] : 1980 Exam Date: 05/27/2024 Ordering Doctor: [...] Treatments None Family Cancers None LOCATION: [facility] BREAST COMPOSITION: There are scattered [...] D.O. Signed By: 05/27/249 DD/ 47 TD/TT: Customer Support Agent: [facility] HospitalRadiology Study observation (narrative)[facility] TOMOSYNTHESIS SCREENING BIOrdered By: Radiologist Radiology on 20-27-3012YVDYSainte Genevieve [facility] Hospital Work Phone: Urinalysis macro (dipstick) panel (U)on 05-26-2024 Bilirubin, UANegativeNegative - 4(70) +++ mg/dLNOMS HealthcareBlood, UANegative Negative - 50 Donta/mcLNOMS HealthcareClarity, UAClearNOMS HealthcareColor, UA YellowNOMS HealthcareGlucose, UAPositiveNegative - 2000(110) ++++ mg/dLMOAB REGIONAL HOSPITAL HealthcareComment on above:500Interpretation and review of laboratory results AbnormalNOMS HealthcareKetones, UANegativeNegative - 160(16) ++++ mg/dLNOMS HealthcareLeukocytes, UANegativeNegative - 500+++ Quique/mcLNOMS HealthcareNitrite, UANegativeNegative - PositiveNOMS HealthcarepH, UA65 - 9NOMS HealthcareProtein, UANegativeNegative - 2000(20) ++++ mg/dLNOMS HealthcareSpec Grav, UA1.011 - 1.03NOMS HealthcareUrobilinogen, UA0.20.2 - 12 mg/dLNOMO HealthcareNOMS HealthcareMLR HEMOGLOBIN A1Con 76-73-8490Wclfith [Mass/Vol]123 mg/dLNORusk Rehabilitation CenterYtkvpoqmsgNiL8m (Bld) [Mass fraction]5.9 %4.5 - 6.2 %[facility] HealthcareComment on above:ADA RECOMMENDED LIMIT 4.0 - 6.0 ADA THERAPEUTIC TARGET < 7.0 ACTION SUGGESTED > 7.0 CLINISYNCNOMS HealthcareGlucose (Bld) [Mass/Vol]on 97-13-2861Mgnurli Blood, POC 115 mg/dLSainte Genevieve County Memorial HospitalLaboratory - Hematology and Cell countson 04-07-2024 HbA1c (Bld) [Mass fraction]5.8 %NOMS HealthcareNo Panel Informationon 04-07-2024 Interpretation and review of laboratory resultsNormalNOMS HealthcareNOMS HealthcareStrep A Culture Onlyon 55-32-0435Rzyuh A Culture OnlyNo Group A Beta Streptococcus Isolated 2 Days PERFORMED BY: [facility] [address] [place] [address] PATHOLOGIST TOOL SPECIALIST DALIA SEARS M.D.NormalThe Unc Health Lenoir Physician GroupComment on above: Performed By: #### CUSTA #### [facility] [address] [place] [address] USAStreptococcus pyogenes cultureOrdered By: Mio Marroquin on 03-09-2024S. pyogenes Org specific cx Ql (Unsp spec)Streptococcus pyogenes cultureFirUniversity Hospitals Samaritan Medical CenterCBC with Auto Differentialon 01-13-2024 Basophils (Bld) [#/Vol]0.06 10*3/uLBon Secours Mercy HealthBasophils/100 WBC (Bld)0 %0 - 2 %[facility] HealthEosinophils (Bld) [#/Vol]0.10 10*3/uLBon Secours Mercy HealthEosinophils/100 WBC (Bld)1 %1 - 4 %[facility] Erythrocyte distribution width (RBC) [Ratio]13.6 %11.8 - 14.4 %[facility] HealthHematocrit (Bld) [Volume fraction]43.3 %36.3 - 47.1 %[facility] HealthHemoglobin (Bld) [Mass/Vol]14.0 g/dL11.9 - 15.1 g/dLBon Secours Mercy HealthImmature granulocytes (Bld) [#/Vol]0.10 10*3/uLBon Secours [facility] Health Immature granulocytes/100 WBC (Bld)1 %Kvyw8Drd Secours Mercy Health Interpretation and review of laboratory resultsAbnormalBon Secours [facility] Health Lymphocytes/100 WBC (Bld)22 %Low24 - 43 %[facility] HealthLymphocytes/100 WBC (Bld)2.98 %[facility] HealthMCH (RBC) [Entitic mass]28.5 pg25.2 - 33.5 pgBon Wayne HospitalHC (RBC) [Mass/Vol]32.3 g/dL28.4 - 34.8 g/dLBon Wayne HospitalV (RBC) [Entitic vol]88.2 fL82.6 - 102.9 fLBon Secours Memorial Regional Medical CenterMonocytes/100 WBC (Bld)8 %3 - 12 %[facility] Monocytes/100 WBC (Bld)1.12 %[facility] Medical CenterNeutrophils/100 WBC (Bld)68 %High36 - 65 %[facility] Medical CenterNucleated RBC/100 WBC (Bld) [Ratio]0.0 % 0.0 per 100 WBCBon Secours Memorial Regional Medical CenterPlatelet mean volume (Bld) [Entitic vol] 10.0 fL8.1 - 13.5 fLBon Secours Memorial Regional Medical CenterPlatelets (Bld) [#/Vol]452 10*3/uL [facility] Medical CenterRBC (Bld) [#/Vol]4.91 10*6/uL3.95 - 5.11 m/uLBon Secours Memorial Regional Medical CenterSegmented neutrophils/100 WBC (Bld)9.08 %HighBon Secours Memorial Regional Medical CenterWBC other (Bld) [#/Vol]13.4HighWellmont Health SystemCBC with Diffon 34-99-3308Nao. Basophil0.06 k/uLNormal0.00-0.20MerWaterbury HospitalComment on above:Performed By: #### MARY, CP #### [facility] [address] [place] [address] Dr[address] [place], [place] [phone] Duplicating Machine Mechanic: Son Story.Imm.Granulocyte0.10 k/uLNormal0.00-0.30MerWaterbury HospitalComment on above:Performed By: #### MARY, CP #### [address] [place], [place] [phone] Duplicating Machine Mechanic: Son Story.Neutrophil (Seg)9.08 k/uLHigh1.50-8.10[facility], IncComment on above:Performed By: #### CDP, CP #### [address] [place] [address] Duplicating Machine Mechanic: Domenica Velázquez MDBasophils/100 WBC (Bld)0 %Normal0-2[facility] HospitalComment on above:Performed By: #### CDP, CP #### [address] [place] [address] Duplicating Machine Mechanic: Domenica Velázquez MDEosinophils (Bld) [#/Vol]0.10 10*3/uLNormal 0.00-0.44[facility] HospitalComment on above:Performed By: #### CDP, CP #### [address] [place] [address] Duplicating Machine Mechanic: ARELIS Storyosinophils/100 WBC (Bld)1 %Normal1-4[facility] HospitalComment on above:Performed By: #### CDP, CP #### [address] [place] [address] Duplicating Machine Mechanic: Domenica Velázquez MDErythrocyte distribution width (RBC) [Ratio]13.6 % Ibzadm47.8-14.4[facility] HospitalComment on above:Performed By: #### CDP, CP #### [address] [place] [address] Duplicating Machine Mechanic: Domenica Velázquez MDHematocrit (Bld) [Volume fraction]43.3 %Normal 36.3-47.1MMercy Health St. Charles Hospital HospitalComment on above:Performed By: #### CDP, CP #### [address] [place] [address] Duplicating Machine Mechanic: Domenica Velázquez MDHemoglobin (Bld) [Mass/Vol]14.0 g/dLNormal 11.9-15.1MMercy Health St. Charles Hospital HospitalComment on above:Performed By: #### CDP, CP #### [address] [place] [address] Duplicating Machine Mechanic: Arias Storymature granulocytes/100 WBC (Bld)1 %Qiqa9Njtcl [facility]iffin HospitalComment on above:Performed By: #### CDP, CP #### [address] [place] [address] Duplicating Machine Mechanic: Imelda Storymphocytes (Bld) [#/Vol]2.98 10*3/uLNormal 1.10-3.70[facility] HospitalComment on above:Performed By: #### CDP, CP #### [address] [place] [address] Duplicating Machine Mechanic: Imelda Storymphocytes/100 WBC (Bld)22 %Mzm29-52Kdvor [facility] HospitalComment on above:Performed By: #### CDP, CP #### [address] [place] [address] Duplicating Machine Mechanic: RADHA Story (RBC) [Entitic mass]28.5 riUflsvd49.2-33.5 [facility] HospitalComment on above:Performed By: #### CDP, CP #### [address] [place] [address] Duplicating Machine Mechanic: RADHA StoryC (RBC) [Mass/Vol]32.3 g/cNScmhdu82.4-34.8[facility] HospitalComment on above:Performed By: #### CDP, CP #### [address] [place], [place] [phone] Duplicating Machine Mechanic: SONAL StoryCV (RBC) [Entitic vol]88.2 xFLxzcxs04.6-102.9 [facility] HospitalComment on above:Performed By: #### CDP, CP #### [facility] [address] [place] [address] [place] [address] Duplicating Machine Mechanic: SONAL Storyonocytes (Bld) [#/Vol]1.12 10*3/uLNormal0.10-1.20 [facility], IncComment on above:Performed By: #### CDP, CP #### [address] [place] [address] Duplicating Machine Mechanic: SONAL Storyonocytes/100 WBC (Bld)8 %Normal3-12[facility], IncComment on above:Performed By: #### CDP, CP #### [address] [place], [place] [phone] Duplicating Machine Mechanic: Domenica Velázquez MDNeutrophil (Seg)68 %Cptk97-30VvvbqSelect Medical Specialty [facility], Inc Comment on above:Performed By: #### CDP, CP #### [address] [place] [address] Duplicating Machine Mechanic: Domenica Velázquez MDNRBC Automated0.0 per 100 WBCNormal0.0[facility], IncComment on above:Performed By: #### CDP, CP #### [address] [place] [address] Duplicating Machine Mechanic: Alida Story mean volume (Bld) [Entitic vol]10.0 fL Normal8.1-13.5[facility], IncComment on above:Performed By: #### CDP, CP #### [address] [place], [place] [phone] Duplicating Machine Mechanic: SERGE Storylatelets (Bld) [#/Vol]452 10*3/jUCgxhxo380-181 [facility], IncComment on above:Performed By: #### CDP, CP #### [address] [place], [place] [phone] Duplicating Machine Mechanic: Domenica Velázquez [facility] (d) [#/Vol]4.91 10*6/uLNormal3.95-5.11[facility]wich HospitalComment on above:Performed By: #### CDP, CP #### [facility] [address] [place], [place] [phone] Duplicating Machine Mechanic: Domenica Velázquez MDROCKEFELLER WAR DEMONSTRATION [facility] ([facility]) [#/Vol]13.4 10*3/uLHigh3.5-11.3[facility] HospitalComment on above:Performed By: #### MARY, CP #### [facility] [address] [place] [address] Duplicating Machine Mechanic: Domenica Velázquez [facility] 71-32-1285Mfcviql [Mass/Vol]4.4 g/dL3.5 - 5.2 g/dLBon [facility], IncAlbumin/Globulin [Mass ratio]1.3 {ratio}1.0 - 2.5Bon SecDoctors Hospitaly HealthALP [Catalytic activity/Vol]87 U/L35 - 104 U/LBon [facility] HealthALT [Catalytic activity/Vol]25 U/L10 - 35 U/LBon Secours The Christ Hospitaly HealthAnion gap [Moles/Vol]11 mmol/L9 - 16 mmol/LBon [facility] Health AST [Catalytic activity/Vol]17 U/L10 - 35 U/LBon Secours [facility] Hospitaly HealthBilirubin [Mass/Vol]mg/dL0.00 - 1.20 mg/dLBon Secours The Christ Hospitaly HealthCalcium [Mass/Vol]9.9 mg/dL8.6 - 10.4 mg/dLBon Secours The Christ Hospitaly HealthChloride [Moles/Vol]101 mmol/L98 - 107 mmol/LBon Secours The [facility] Hospitaly HealthCO2 [Moles/Vol]25 mmol/L20 - 31 mmol/LBon Secours The [facility] Hospitaly HealthCreatinine [Mass/Vol]0.7 mg/dL0.50 - 0.90 mg/dLBon Secours The Christ Hospitaly HealthEst, Glom Filt Rate- PINFBon SecProMedica Bay Park Hospital on above: These results are not intended [...] therapy that affects renal tubular secretion. Glucose [Mass/Vol]112 mg/gMGfql51 - 99 mg/dLBon [facility] Interpretation and review of laboratory resultsAbnormalBon Secours [facility] Potassium [Moles/Vol]4.2 mmol/L3.7 - 5.3 mmol/LBon [facility], IncProtein [Mass/Vol]7.8 g/dL6.6 - 8.7 g/dLBon [facility], IncSodium [Moles/Vol]137 mmol/L136 - 145 mmol/LBon [facility], IncUrea nitrogen [Mass/Vol]24 mg/dL High6 - 20 mg/dLBon [facility], IncUrea nitrogen/Creatinine [Mass ratio]34 mg/mgHigh9 - 20Bon [facility] CenterComp Metabolic Profon 70-55-7815Rafewri [Mass/Vol]4.4 g/dLNormal3.5-5.2MAshtabula County Medical Center Comment on above:Performed By: #### CDP, CP #### [facility] [address] [place] [address] [place] [address] Duplicating Machine Mechanic: Domenica Velázquez MDAlbumin/Glob Ratio1.2Cplqqk9.0-2.5[facility], IncComment on above:Performed By: #### CDP, CP #### [facility] [address] [place] [address] Duplicating Machine Mechanic: Gloria Storykaline Phos87 U/BYpeslm61-942UlqxzSelect Medical Specialty Hospital [facility], IncComment on above:Performed By: #### CDP, CP #### [facility] [address] [place] [address] Duplicating Machine Mechanic: Domenica Sturtz, MDALT [Catalytic activity/Vol]25 U/AOcqrar92-53NmkxfSelect Medical Specialty Hospital - [facility], IncComment on above:Performed By: #### CDP, CP #### [address] [place] [address] Duplicating Machine Mechanic: Domenica Velázquez MDAnion gap [Moles/Vol]11 mmol/LNormal9-16[facility] HospitalComment on above:Performed By: #### CDP, CP #### [address] [place] [address] Duplicating Machine Mechanic: Domenica Velázquez MDAST [Catalytic activity/Vol]17 U/NOcavkn88-19Nzyfr [facility] HospitalComment on above:Performed By: #### CDP, CP #### [address] [place] [address] Duplicating Machine Mechanic: Domenica Velázquez MDBilirubin [Mass/Vol]mg/dLNormal0.00-1.20[facility], IncComment on above:Performed By: #### CDP, CP #### [address] [place] [address] Duplicating Machine Mechanic: Domenica Velázquez MDBUN/CRE Qblqo78Wbmy7-78ZcclzSelect Medical Specialty [facility], Inc Comment on above:Performed By: #### CDP, CP #### [address] [place] [address] Duplicating Machine Mechanic: STANLEY Storyalcium [Mass/Vol]9.9 mg/dLNormal8.6-10.4[facility], IncComment on above:Performed By: #### CDP, CP #### [address] [place] [address] Duplicating Machine Mechanic: STANLEY Storyhloride [Moles/Vol]101 mmol/NCjigoc27-216Ewehk [facility] HospitalComment on above:Performed By: #### CDP, CP #### [address] [place] [address] Duplicating Machine Mechanic: Domenica Velázquez MDCO2 [Moles/Vol]25 mmol/HGvrebm84-88MjvkaSelect Medical Specialty Hospital - Board[facility], IncComment on above:Performed By: #### CDP, CP #### [address] [place], [place] [phone] Duplicating Machine Mechanic: STANLEY Storyreatinine [Mass/Vol]0.7 mg/dLNormal0.50-0.90[facility], IncComment on above:Performed By: #### MARY, CP #### [address] [place] [address] Duplicating Machine Mechanic: Domenica Velázquez MDGFR/1.73 sq M.predicted among non-blacks MDRD (S/P/Bld) [Vol rate/Area]mL/min/{1.73_m2}Normal>60[facility], IncComment on above:Result Comment: These results are not intended for [...] or following therapy that affects renal tubular secretion.Performed By: #### MARY, CP #### [address] [place] [address] Duplicating Machine Mechanic: Domenica Velázquez MDGlucose [Mass/Vol]112 mg/fEVoep28-81SnqrkAshtabula County Medical CenterComment on above:Performed By: #### CDP, CP #### [address] [place] [address] Duplicating Machine Mechanic: Domenica Velázquez MDPotassium [Moles/Vol]4.2 mmol/LNormal3.7-5.3MAshtabula County Medical CenterComment on above:Performed By: #### CDP, CP #### [address] [place] [address] Duplicating Machine Mechanic: SERGE Storyrotein [Mass/Vol]7.8 g/dLNormal6.6-8.7[facility], IncComment on above:Performed By: #### CDP, CP #### [address] [place], [place] [phone] Duplicating Machine Mechanic: VICENTA Storyodium [Moles/Vol]137 mmol/XDdgibn022-472RwdcsSelect Medical Specialty Hospital - [facility], IncComment on above:Performed By: #### CDP, CP #### [address] [place], [place] [address]83 Duplicating Machine Mechanic: Domenica Velázquez MDUrea nitrogen [Mass/Vol]24 mg/dLHigh6-20[facility], IncComment on above:Performed By: #### CDP, CP #### [address] [place], [place] [phone] Duplicating Machine Mechanic: Domenica Velázquez MDMicroscopic Urinalysison 31-25-0132Mlyqqrqy LM Ql (Urine sed)1+AbnormalNoneBSovah Health - DanvilleEpithelial cells LM.HPF (Urine sed) [#/Area]0 TO 2Bon [facility], IncInterpretation and review of laboratory resultsAbnormalBon Secours Memorial Regional Medical CenterMucus Ql (Urine sed)TRACE AbnormalNoneBon [facility], IncRBC LM.HPF (Urine sed) [#/Area]0 TO 2Bon [facility], IncWBC LM.HPF (Urine sed) [#/Area]NoneBon [facility] Health SystemTSHon 37-92-7230IQY Qn1.57 m[IU]/LBon [facility] Surgical CenterThyroid Stim. Horm.on 27-15-1808Rarjfor Stim. Horm.1.57 uIU/mLNormal0.27-4.20[facility], IncComment on above:Performed By: #### TSH #### [address] [place] [address] Duplicating Machine Mechanic: MIKE Story w/Reflex Cultureon 48-75-2326Greeyprve, SemiQt,UrNegativeNormalNEGMerWaterbury HospitalComment on above:Performed By: #### UMICAO, UAX #### [facility] [address] [place], [place] [address] Duplicating Machine Mechanic: Jerri Story, UrineNegativeNormalNEGSelect Medical Specialty Hospital - [facility], Inc Comment on above:Performed By: #### JANA, UAX #### [facility] [address] [place] [address] Duplicating Machine Mechanic: STANLEY Storylarity ()ClearNormalCLEARSelect Medical Specialty Hospital - [facility], Inc Comment on above:Performed By: #### JANA, UAX #### [facility] [address] [place] [address] [place] [address] Duplicating Machine Mechanic: STANLEY Storyolor (U)YellowNoalYAdena Regional Medical Center Comment on above:Performed By: #### JANA, UAX #### [facility] [address] [place] [address] [place] [address] Duplicating Machine Mechanic: Domenica Velázquez MDGlucose Ql (U)3+ mg/dLAbnormalNEGMerPremier Health Miami [facility] Hospital North HospitalComment on above:Performed By: #### JANA, UAX #### [facility] [address] [place] [address] Duplicating Machine Mechanic: Domenica Velázquez MDKetones Ql (U)NegativeNormalNEGMerPremier Health Miami [facility] Hospital North HospitalComment on above:Performed By: #### JANA, UAX #### [facility] [address] [place], [place] [phone] Duplicating Machine Mechanic: Domenica Velázquez MDLeukocyte esterase Test strip Ql (U)NegativeNormal NEGMerWaterbury HospitalComment on above:Performed By: #### JADAEFRAO, UAX #### [facility] [address] [place] [address] Dr. [place], [place] [phone] Duplicating Machine Mechanic: Domenica Velázquez MDNitrite,UrNegativeNormalNEGSelect Medical Specialty Hospital - [facility], Inc Comment on above:Performed By: #### JANA, UAX #### [facility] [address] [place] [address] Dr. [place], [place] [id number] Duplicating Machine Mechanic: SERGE Story,Ur6.0Olicut2.0-9.0[facility], IncComment on above:Performed By: #### JANA, UAX #### [address] [place], [place] [phone] Duplicating Machine Mechanic: SERGE Storyrotein Ql (U)NegativeNormalNEGSelect Medical Specialty Hospital - Board[facility], IncComment on above:Performed By: #### JANA, UAX #### [facility] [address] [place] [address] Dr. [place], [place] [phone] Duplicating Machine Mechanic: VICENTA Storypec. [place],Ur>1.239Mqho7.010-1.020[facility], IncComment on above:Performed By: #### JANA, UAX #### [address] [place], [place] [phone] Duplicating Machine Mechanic: Domenica Velázquez MDUrobilinogen,UrNormalNormal0.0-1.0[facility], IncComment on above:Performed By: #### JANA, UAX #### [address] [place], [place] [phone] Duplicating Machine Mechanic: Domenica Velázquez MDUrinalysis with Reflex to Cultureon 01-13-2024 Bilirubin Ql (U)NegativeNEGATIVEBon Secours [facility] HealthClarity (U)ClearClearBon Secours Doctors HospitalColor (U)YellowYellowBon Secours Doctors HospitalGlucose Test strip (U) [Mass/Vol]3+AbnormalNEGATIVE mg/dLBon [facility], IncHemoglobin Auto test strip Ql (U)NegativeNEGATIVEBon [facility], IncInterpretation and review of laboratory resultsAbnormalBon SecBethesda North HospitalKetones (U) [Mass/Vol]NegativeNEGATIVE mg/dLBon SecBethesda North HospitalLeukocyte esterase Test strip Ql (U)NegativeNEGATIVEBon SecBethesda North HospitalNitrite Ql (U)Negative NEGATIVEBon [facility], IncpH (U)6.0 [pH]5.0 - 9.0Bon [facility] Protein (U) [Mass/Vol]NegativeNEGATIVE mg/dLBon [facility], IncSpecific gravity (U) [Rel density]High1.010 - 1.020Bon [facility], IncUrobilinogen Qn (U)Normal0.0 - 1.0 EU/dLBon [facility], IncBon [facility] Inc Urinalysis,Microon 48-77-1118Jkadlhrt0+AbnormalENCOMPASS HEALTH REHABILITATION HOSPITAL OF SCOTTSDALEEMeThe Hospital of Central ConnecticutComment on above:Performed By: #### JEFFERY GUERRERO [facility] #### [facility] [address] [place] [address] [place] [address] Duplicating Machine Mechanic: Domenica Velázquez MDEpithelial cells LM Ql (Urine sed)0 TO 3Xzafkr7-64 [facility], IncComment on above:Performed By: #### JANA [facility]ERO [facility] #### [facility] [address] [place] [address] [place] [address] Duplicating Machine Mechanic: Onelia Story StrandsTRACEAbnormBrecksville VA / Crille HospitalComment on above:Performed By: #### JANA GUERRERO CG #### [facility] [address] [place] [address] Duplicating Machine Mechanic: Domenica Velázquez MDUrine RBC's0 TO 6Bkpdde2-6RmuafAshtabula County Medical Center Comment on above:Performed By: #### AJNA GUERRERO CG #### [facility] [address] [place] [address] [place] [address] Duplicating Machine Mechanic: Domenica Velázquez MDSt. Luke'S [facility] WBC'sNoneNormal0-5[facility] Comment on above:Performed By: #### JANA GUERRERO [facility] #### [facility] [address] [place], [place] [phone] Duplicating Machine Mechanic: Domenica Velázquez [facility] METABOLIC PANLon 25-23-9039Zmuyh gap [Moles/Vol]10 mmol/LNormal5-15[facility] - AndersonComment on above: Performed By: #### CBCA, BMP, FEPR, 2276-4 #### [facility] ([id number]) [address], [address] [place], [place] [address]Iwuvmmy [Mass/Vol]8.9 mg/dLNormal8.5-10.5POhioHealth Hardin Memorial HospitalComment on above:Performed By: #### CBCA, BMP, FEPR, 2276-4 #### [facility] ([id number]) [address], [address] [place], [place] [address]Xsmzntrq [Moles/Vol]106 mmol/WBlbrxl55-596NnqYizsnaOur Lady of Mercy Hospital - AndersonComment on above:Performed By: #### CBCA, BMP, FEPR, 2276-4 #### [facility] ([id number]) [address], [address] [place], [place] [address]RF8 [Moles/Vol]22 mmol/ISsbrzq77-38VluAhzbqzOhioHealth Hardin Memorial Hospital Comment on above:Performed By: #### CBCA, BMP, FEPR, 2276-4 #### [facility] ([id number]) [address], [address] [place], [place] [address]Gqnlmtqljg [Mass/Vol]0.70 mg/dLNormal0.40-1.00[facility] - AndersonComment on above:Result Comment: METHOD TRACEABLE TO IDMS STANDARD Performed By: #### CBCA, BMP, FEPR, 2276-4 #### [facility] ([id number]) [address] [address] [place] [address]aSLC (CKD-EPI) NON-RACE DEPENDENT>90Normal>59ProBellville Medical CenterComment on above:Result Comment: Reported eGFR is based on the CKD-EPI 2020 equation that does not use a race coefficient.Performed By: #### CBCKerline, BMP, FEPR, 6-4 #### [facility] ([id number]) [address] [address] [place], [place] [address]Ynkxmlu [Mass/Vol]89 mg/sJXtlvnl03-95CyzApmjskOur Lady of [facility] Comment on above:Performed By: #### CBCKerline, BMP, FEPR, 2275-4 #### [facility] ([id number]) [address] [address]Nrccdxyvt [Moles/Vol]4.2 mmol/LNormal3.5-5.0ProBellville Medical CenterComment on above:Performed By: #### CBCA, BMP, FEPR, 2275-4 #### [facility] ([id number]) [address] [address] [place] [address]Pxpwsh [Moles/Vol]138 mmol/SBgbunf878-296MwcXlnnlr [facility]remont HospitalComment on above:Performed By: #### CBCA, BMP, FEPR, 2275-4 #### [facility] ([id number]) [address] [address] [place] [address]Gokj nitrogen [Mass/Vol]18 mg/dLNormal5-23ProBellville Medical CenterComment on above:Performed By: #### CBCA, BMP, FEPR, 6-4 #### [facility] ([id number]) [address] [address] [place] [address]RJB AND AUTO DIFFon 12-92-9782VHREQKIY BASOPHIL0.0 X10E9/LNormal 0.0-0.2POhioHealth Hardin Memorial HospitalComment on above:Performed By: #### CBCA, BMP, FEPR, 2275-4 #### [facility] ([id number]) [address], [address] [place], [place] [address]ODDIHGUJ NEUTROPHIL5.7 X10E9/LNormal1.5-6.6ProBellville Medical CenterComment on above:Performed By: #### CBCA, BMP, FEPR, 2275- #### [facility] ([id number]) [address], [address] [place], [place] [address]Pljjbgqsm/100 WBC (Bld)0.4 %NormalOur Lady of [facility] Hospital [facility] Comment on above:Performed By: #### CBCA, BMP, FEPR, 2275-06 #### [facility] ([id number]) [address], [address] [place], [place] [address]Nsyccxrpsow (Bld) [#/Vol]0.1 10*3/uLNormal0.0-0.4[facility] - AndersonComment on above:Performed By: #### CBCA, BMP, FEPR, 2275-06 #### [facility] ([id number]) [address] [address] [place], [place] [address]Mkvnrvrxwxk/100 WBC (Bld)1.2 %NormalOur Lady of [facility] Hospital - [facility] Comment on above:Performed By: #### CBCA, BMP, FEPR, 2275-06 #### [facility] ([id number]) [address], [address] [place], [place] [address]Ljebmiknitn distribution width (RBC) [Ratio]14.4 %Normal 11.5-15.0[facility] - AndersonComment on above:Performed By: #### CBCA, BMP, FEPR, 2275- #### [facility] ([id number]) [address], [address] [place], [place] [address]Gmitoltwfw (Bld) [Volume fraction]37.4 %Helivo26-05AtsKswrtoBellville Medical CenterComment on above:Performed By: #### CBCA, BMP, FEPR, 6-4 #### [facility] ([id number]) [address], [address] [place] [address]Zworpfumyz (Bld) [Mass/Vol]12.4 g/dOTyfykq37.7-15.5POhioHealth Hardin Memorial HospitalComment on above:Performed By: #### CBCA, BMP, FEPR, 6-4 #### [facility] ([id number]) [address], [address] [place], [place] [address]Jzxlrbpigkz (Bld) [#/Vol]2.4 10*3/uLNormal1.0-3.5POhioHealth Hardin Memorial HospitalComment on above:Performed By: #### CBCA, BMP, FEPR, 2275-4 #### [facility] ([id number]) [address], [address] [place], [place] [address]Vfnbctdjpvm/100 WBC (Bld)28.1 %NormalOur Lady of [facility] Hospital [facility] Comment on above:Performed By: #### CBCA, BMP, FEPR, 2275- #### [facility] ([id number]) [address], [address] [place], [place] [address]XSY (RBC) [Entitic mass]28.8 ovBbdvmk52-71XetYuavydBellville Medical CenterComment on above:Performed By: #### CBCA, BMP, FEPR, 6-4 #### [facility] ([id number]) [address], [address] [place], [place] [address]FYJJ (RBC) [Mass/Vol]33.1 g/hEJxijkk35-62QqkTynjujBellville Medical CenterComment on above:Performed By: #### CBCA, BMP, FEPR, 6-4 #### [facility] ([id number]) [address], [address] [place] [address]YYN (RBC) [Entitic vol]87 kEKjprvz83-802MxxEgfgyzOur Lady of Mercy Hospital - AndersonComment on above:Performed By: #### CBCA, BMP, FEPR, 2276-4 #### [facility] ([id number]) [address], [address] [place], [place] [address]Dymjrrheq (Bld) [#/Vol]0.3 10*3/uLNormal0-0.9[facility] - AndersonComment on above:Performed By: #### CBCA, BMP, FEPR, 2276-4 #### [facility] ([id number]) [address], [address] [place] [address]Amljepmgm/100 WBC (Bld)3.0 %[facility] Comment on above:Performed By: #### CBCA, BMP, FEPR, 2276-4 #### [facility] ([id number]) [address], [address] [place], [place] [address]Dqndstvzjhe/100 WBC (Bld)67.3 %[facility] Comment on above:Performed By: #### CBCA, BMP, FEPR, 227- #### [facility] ([id number]) [address], [address] [place] [address]Odxwjhes mean volume (Bld) [Entitic vol]8.8 fLNormal7-12 [facility] - AndersonComment on above:Performed By: #### CBCA, BMP, FEPR, 2276-4 #### [facility] ([id number]) [address], [address] [place] [address]Wwzzdmmxl (Bld) [#/Vol]325 10*3/wQWefcgr499-333KirUytekz [facility]remont HospitalComment on above:Performed By: #### CBCA, BMP, FEPR, 2276-4 #### [facility] ([id number]) [address], [address] [place], [place] [address]MIG COUNT4.31 X10E12/LNormal3.80-5.20[facility] Comment on above:Performed By: #### CBCA, BMP, FEPR, 4 #### [facility] ([id number]) [address], [address] [place], [place] [address]ETB (Bld) [#/Vol]8.4 10*3/uLNormal4.0-11.0[facility] AndersonComment on above:Performed By: #### CBCA, BMP, FEPR, 2275-06 #### [facility] ([id number]) [address], [address] [place], [place] [address]RJUUZWRGfs 97-74-3575Aznmfmqi [Mass/Vol]195 ng/cVUrrnka83-387 [facility] - AndersonComment on above:Performed By: #### CBCA, CMP, 77153- 1, TSHR #### [facility] ([id number]) [address] [place], [place] [address]NJXC PROFILEon 92-07-5068Rodj [Mass/Vol]53 ug/tGCmhdwd82-935 [facility] - AndersonComment on above:Performed By: #### CBCA, BMP, FEPR, 2275-06 #### [facility] ([id number]) [address], [address] [place], [place] [address]QGQS WIJOPFI088 ug/bDSrtjcs542-842LznCoarrfOur Lady of [facility] Comment on above:Performed By: #### CBCA, BMP, FEPR, 2275-06 #### [facility] ([id number]) [address] [place], [place] [address]UFFZ CTSOOFXUGC61 % HCZUTWSVVETsc15-72HliEbtrih [facility] Comment on above:Performed By: #### CBCA, BMP, FEPR, 2275-4 #### [facility] ([id number]) [address] [address] [place], [place] [address]EU Cervical spine WO contraston 43-73-3530Vwonhgitz Study observation (narrative)[facility]CT Head WO contraston 04-20-2023 Radiology Study observation (narrative)[facility]ENTERNo Panel Informationon [id number] acute CT abnormality identified in the brain. No acute osseous abnormality identified in the cervical spine. [facility] RIS CONSOLIDATEDEXAMINATION: CT OF THE CERVICAL SPINE WITHOUT CONTRAST; [...] There is no prevertebral soft tissue swelling. Andi Stone MD - 04/20/2023 EXAMINATION: CT OF THE [...] abnormality identified in the cervical spine. [facility]No Panel InformationOrdered By: Andi Montoya on 06-05-7453BXL [facility] Work Phone: Glucose Glucometer (BldC) [Mass/Vol]on 03-27-2023 Glucose [Mass/Vol]151 mg/zSIqma16-14FkpFcmbrzOur Lady of Mercy Hospital - AndersonCB AND AUTO DIFF on 98-78-6085DIPRHGPU BASOPHIL0.0 X10E9/LNormal0.0-0.2POhioHealth Hardin Memorial Hospital Comment on above:Performed By: #### JAHAIRA CUEVAS, 30655-4, TSHR #### [facility] ([id number]) [address], [address] [place], [place] [address]HZKXYTIZ NEUTROPHIL7.7 X10E9/LHigh1.5-6.6[facility] AndersonComment on above:Performed By: #### JAHAIRA CUEVAS, 26467-5, TSHR #### [facility] ([id number]) [address], [address] [place], [place] [address]Bdgwmbbho/100 WBC (Bld)0.3 %[facility] Comment on above:Performed By: #### JAHAIRA CUEVAS, 28836-7, TSHR #### [facility] ([id number]) [address], [address] [place], [place] [address]Fybdhsvgdff (Bld) [#/Vol]0.1 10*3/uLNormal0.0-0.4[facility] AndersonComment on above:Performed By: #### CBCJAHAIRA Churchill, 46067-2, TSHR #### [facility] ([id number]) [address], [address] [place], [place] [address]Jkzqiqgnvpd/100 WBC (Bld)1.1 %[facility] Comment on above:Performed By: #### CBCJAHAIRA Churchill, 84100-3, TSHR #### [facility] ([id number]) [address], [address] [place], [place] [address]Xhxpaklyfky distribution width (RBC) [Ratio]14.6 %Normal 11.5-15.0[facility] - AndersonComment on above:Performed By: #### CBCJAHAIRA Churchill, 06617-4, TSHR #### [facility] ([id number]) [address] [facility] [address] [place], [place] [address]Izwuxoswix (Bld) [Volume fraction]45.7 %Uijgrs70-08OfnAhkessBellville Medical CenterComment on above:Performed By: #### JAHAIRA CUEVAS, 65891-5, TSHR #### [facility] ([id number]) [address], [address] [place], [place] [address]Dppgylpsam (Bld) [Mass/Vol]15.0 g/iVLuhiiv42.7-15.5POhioHealth Hardin Memorial HospitalComment on above:Performed By: #### CBCJAHAIRA Churchill, 38769-4, TSHR #### [facility] ([id number]) [address] [address] [place], [place] [address]Weiyrcgxibx (Bld) [#/Vol]2.4 10*3/uLNormal1.0-3.5POhioHealth Hardin Memorial HospitalComment on above:Performed By: #### CBCJAHAIRA Churchill, 48051-6, TSHR #### [facility] ([id number]) [address] [address] [place], [place] [address]Lkszckiegbt/100 WBC (Bld)22.1 %NormalProBellville Medical Center Comment on above:Performed By: #### CBCKerline, CMP, 18620-4, TSHR #### [facility] ([id number]) [address], [address] [place], [place] [address]WYZ (RBC) [Entitic mass]29.0 wkSugjmq23-99OgkYhcwjsBellville Medical CenterComment on above:Performed By: #### CBCJAHAIRA Churchill, 28367-2, TSHR #### [facility] ([id number]) [address] [place], [place] [address]JVEZ (RBC) [Mass/Vol]32.8 g/tITxmlzu84-72RubItfdyyBellville Medical CenterComment on above:Performed By: #### CBCKerline CMP, 26441-7, TSHR #### [facility] ([id number]) [address], [address] [place], [place] [address]QER (RBC) [Entitic vol]88 sBChrfqa87-656ZyiRnufmcOur Lady of Mercy Hospital - AndersonComment on above:Performed By: #### CBCKerline CMP, 87011-5, TSHR #### [facility] ([id number]) [address] [place], [place] [address]Klkyoucja (Bld) [#/Vol]0.6 10*3/uLNormal0-0.9[facility] - AndersonComment on above:Performed By: #### CBCJAHAIRA Churchill, 04950-3, TSHR #### [facility] ([id number]) [address] [place], [place] [address]Mqzesgrxd/100 WBC (Bld)5.7 %NormalOur Lady of Mercy Hospital - Anderson Comment on above:Performed By: #### CBCKerline CMP, 26495-2, TSHR #### [facility] ([id number]) [address], [address] [place], [place] [address]Yqwcmlienun/100 WBC (Bld)70.8 %NormalOur Lady of [facility] Hospital - [facility] Comment on above:Performed By: #### CBCA, CMP, 50321-7, TSHR #### [facility] ([id number]) [address], [address] [place], [place] [address]Pwynlcgc mean volume (Bld) [Entitic vol]9.7 fLNormal7-12 [facility] AndersonComment on above:Performed By: #### CBCKerline, CMP, 37966- 1, TSHR #### [facility] ([id number]) [address], [address] [place], [place] [address]Ichpyrkeq (Bld) [#/Vol]303 10*3/dEMkcemh297-315XrqVudzzg [facility] HospitalComment on above:Performed By: #### CBCKerline, CMP, 49068-6, TSHR #### [facility] ([id number]) [address] [place], [place] [address]CIR COUNT5.17 X10E12/LNormal3.80-5.20[facility] on above:Performed By: #### MASON, CMP, 43211-5, TSHR #### [facility] ([id number]) [address], [address] [place], [place] [address]BPJ (Bld) [#/Vol]10.9 10*3/uLNormal4.0-11.0ProBellville Medical CenterComment on above:Performed By: #### JAHAIRA CUEVAS, 47338-0, TSHR #### [facility] ([id number]) [address] [place], [place] [address]WNNZTWBHUSLEJ METABOLIC PANELon 55-68-7381Lnrxybb [Mass/Vol]4.7 g/dLNormal3.2-5.3POhioHealth Hardin Memorial HospitalComment on above:Performed By: #### CBCKerline, CMP, 75842-5, TSHR #### [facility] ([id number]) [address], [address] [place], [place] [address]MAD [Catalytic activity/Vol]74 U/EZgswcb38-427QznHfmteiBellville Medical CenterComment on above:Performed By: #### CBCA, CMP, 99162-7, TSHR #### [facility] ([id number]) [address] [place], [place] [address]KON [Catalytic activity/Vol]22 U/LNormal0-31POhioHealth Hardin Memorial HospitalComment on above:Performed By: #### MAOSN CMP, 54122-6, TSHR #### [facility] ([id number]) [address], [address] [place], [place] [address]Wnvsv gap [Moles/Vol]12 mmol/LNormal5-15ProBellville Medical CenterComment on above:Performed By: #### CBCKerline, CMP, 73950-0, TSHR #### [facility] ([id number]) [address], [address] [place], [place] [address]RYE [Catalytic activity/Vol]20 U/LNormal0-41ProBellville Medical CenterComment on above:Performed By: #### MASON CMP, 20759-3, TSHR #### [facility] ([id number]) [address] [place], [place] [address]Vngwqlfnt [Mass/Vol]0.5 mg/dLNormal0.3-1.2POhioHealth Hardin Memorial HospitalComment on above:Performed By: #### MASON, CMP, 43313-6, TSHR #### [facility] ([id number]) [address] [place], [place] [address]Ovtbwkf [Mass/Vol]9.9 mg/dLNormal8.5-10.5POhioHealth Hardin Memorial HospitalComment on above:Performed By: #### CBCA, CMP, 18007-0, TSHR #### [facility] ([id number]) [address] [place], [place] [address]Irnxyqca [Moles/Vol]105 mmol/AVfujao48-925XyjWislqgBellville Medical CenterComment on above:Performed By: #### CBCA, CMP, 84108-6, TSHR #### [facility] ([id number]) [address] [place], [place] [address]WR6 [Moles/Vol]25 mmol/YUicvvy72-26YacSareesOhioHealth Hardin Memorial Hospital Comment on above:Performed By: #### JAHAIRA CUEVAS, 27079-6, TSHR #### [facility] ([id number]) [address] [facility] [address] [place], [place] [address]Qfzxqjufnn [Mass/Vol]0.74 mg/dLNormal0.40-1.00[facility] - AndersonComment on above:Result Comment: METHOD TRACEABLE TO IDMS STANDARD Performed By: #### JAHAIRA CUEVAS, 32251-0, TSHR #### [facility] ([id number]) [address] [address] [place], [place] [address]eYYA (CKD-EPI) NON-RACE DEPENDENT>90Normal>59ProBellville Medical CenterComment on above:Result Comment: Reported eGFR is based on the CKD-EPI 2020 equation that does not use a race coefficient.Performed By: #### JAHAIRA CUEVAS, 77153-4, TSHR #### [facility] ([id number]) [address] [address] [place], [place] [address]Kfehlwj [Mass/Vol]143 mg/bHMfei00-22JidShdnrbOur Lady of [facility] Comment on above:Performed By: #### JAHAIRA CUEVAS, 03940-8, TSHR #### [facility] ([id number]) [address] [address] [place], [place] [address]Efzqzvlge [Moles/Vol]3.8 mmol/LNormal3.5-5.0[facility] - AndersonComment on above:Performed By: #### JAHAIRA CUEVAS, 26093-7, TSHR #### [facility] ([id number]) [address] [place] [address]Vlesidp [Mass/Vol]7.8 g/dLNormal6.0-8.0[facility] - AndersonComment on above:Performed By: #### JAHAIRA CUEVAS, 95613-8, TSHR #### [facility] ([id number]) [address], [facility] [address] [place], [place] [address]Txbusp [Moles/Vol]142 mmol/PDugery753-545QiaQtaiua Fremont HospitalComment on above:Performed By: #### JAHAIRA CUEVAS, 01336-3, TSHR #### [facility] ([id number]) [address], [facility] [address] [place], [place] [address]Wmpj nitrogen [Mass/Vol]17 mg/dLNormal5-23ProBellville Medical CenterComment on above:Performed By: #### JAHAIRA CUEVAS, 55879-6, TSHR #### [facility] ([id number]) [address], [facility] [address] [place], [place] [address]QDR A1C (GLYCO-HGB)on 98-27-4348Pnczsou [Mass/Vol]117 mg/dL NormalProBellville Medical CenterComment on above:Performed By: #### JAHAIRA CUEVAS, 06365-3, TSHR #### [facility] ([id number]) [address] [address] [place], [place] [address]SgM9w (Bld) [Mass fraction]5.7 %High4.4-5.6ProBellville Medical CenterComment on above:Result Comment: NOTE ADA Guidelines Result HgbA1c Normal : less than 5.7 % Prediabetes : 5.7 % to 6.4 % Diabetes : > 6.4 % Use with caution in patients with abnormal hemoglobin variants as the half-life of red blood cells and in vivo glycation rates are affected.Performed By: #### JAHAIRA CUEVAS, 27213-7, TSHR #### [facility] ([id number]) [address], [address] [place], [place] [address]Advaa 1996 panelon 88-13-0325Aqofiimpgni [Mass/Vol]132 mg/dLLow 150-200ProBellville Medical CenterComment on above:Performed By: ###Christopher CUEVAS CMP, 64205-7, TSHR #### [facility] ([id number]) [address], [address] [place], [place] [address]Pfzgosclwug in HDL [Mass/Vol]58 mg/dLNormal>39ProBellville Medical CenterComment on above:Result Comment: HDL <40 mg/dL - High Risk HDL > or = 40mg/dL- Desirable HDL >60 mg/dL - Negative Risk Performed By: ###Christopher CUEVAS CMP, 08325-5, TSHR #### [facility] ([id number]) [address], [address] [place], [place] [address]Pmpoyieqcip in LDL [Mass/Vol]51 mg/dLNormal<130ProBellville Medical CenterComment on above:Result Comment: LDL <100 mg/dL - Desirable LDL >160 mg/dL - High Risk Performed By: ###Christopher CUEVAS CMP, 65225-5, TSHR #### [facility] ([id number]) [address], [address] [place], [place] [address]Xkgiqeuykqa in VLDL [Mass/Vol]23 mg/dLNormal0-30ProBellville Medical CenterComment on above:Performed By: ###Christopher CUEVAS CMP, 32671-5, TSHR #### [facility] ([id number]) [address], [address] [place], [place] [address]SGLGQGCYTFA:HDL2.6Nzdaxi8.0-5.0ProBellville Medical CenterComment on above:Performed By: ###Christopher CUEVAS CMP, 05268-2, TSHR #### [facility] ([id number]) [address] [place], [place] [address]Wlamscwndqkv [Mass/Vol]114 mg/yVSfpmtm14-101ZqoVvbkbjOur Lady of [facility] - AndersonComment on above:Performed By: #### MASON, JAHAIRA, 22184-7, TSHR #### [facility] ([id number]) [address], [address] [place], [place] [address]INAX SCREENING BILATERAL W CADon 72-37-1852VCVI SCREENING BILATERAL W CADMAMM SCREENING BILATERAL W CAD EXAM: MAMM SCREENING [...] on 03/16/2023 3:25 PM 0A a ADDITIONAL INormalHigh[facility] WITH REFLEXon 18-91-0239LUN1.55 uIU/mLNormal0.49-4.67[facility] - AndersonComment on above:Performed By: #### MASON, CMP, 52325-3, TSHR #### [facility] ([id number]) [address] [place], [place] [address]NC - Assessmentson 02-60-8265EB - Assessments [id number]#1.00CD:[facility]T - Assessmentson 04-76-6875YS - Assessments [id number]#1.00CD:LynneSelect Medical [facility], AvonConsenton 48-74-7187Bpkegkt [id number]#1.00CD:[address] [place], [place] [address]Outside Recordson 27-13-3692Oywacdd Records [id number]#1.00CD:[facility] HospitalJanaUK HealthcareT - Orderson 58-41-5078CR - Orders [id number]#1.00CD:[facility] HospitalnicolasaUK HealthcareT - [id number]#1.00CD:[facility] CenterT - Otheron 01-57-0999HD - Other [id number]#1.00CD:[address] [place], [place] [address]PAP ACOG PANEL 2: 30 to 65on 05-27-2022..[facility] Comment on above:Result Comment: Performed at: WBPerformed By: #### [id number] #### [facility] [address] [address] [address] Do Hearn Gdln ACOG Tmkkatj69-06NjimmpNujAdena Pike Medical CenterComment on above:Performed By: #### [id number] #### [facility] [address] [address] [address] Do AguilarDIAGNOSIS:CommentHolmes County Joel Pomerene Memorial HospitalComment on above: Result Comment: NEGATIVE FOR INTRAEPITHELIAL LESION OR MALIGNANCY. Performed at: WBPerformed By: #### [id number] #### [facility] [address] [place] [address] Dr. Do Del Real AptimaNegativeNormalNegativeBlanchard Valley Health [facility] on above:Result Comment: This nucleic acid amplification test detects fourteen high-risk HPV types (16,18,31,33,35,39,45,51,52,56,58,59,66,68) without differentiation. Performed at: =GPerformed By: #### [id number] #### [facility] [address] [place] [address] Dr. Do Del Real Genotype ReflexCommentNoCleveland Clinic Euclid Hospital on above:Result Comment: Criteria not met, HPV Genotype not performed. Performed at: WBPerformed By: #### [id number] #### [facility] [address] [place] [address] Dr. Do AguilarMethodology:CommentUC Medical Center on above: Result Comment: This liquid based ThinPrep(R) pap test was screened with the use of an image guided system. Performed at: WBPerformed By: #### [id number] #### [facility] [address] [place] [address] Dr. Do AguilarNote:CommentNoCleveland Clinic Euclid Hospital on above:Result Comment: The Pap smear is a screening test designed to aid in the detection of premalignant and malignant conditions of the uterine cervix. It is not a diagnostic procedure and should not be used as the sole means of detecting cervical cancer. Both false-positive and false-negative reports do occur. . Performed at: WBPerformed By: #### [id number] #### [facility] [address] [place] [address] Dr. Do AguilarPerformed by:CommentNoCleveland Clinic Euclid Hospital on above: Result Comment: Rebecca Ramachandran, Photogrammetric Tech (ASCP) Performed at: WBPerformed By: #### [id number] #### [facility] [address] [place] [address] Dr. Do AguilarSpecimen adequacy:CommentUC Medical Center on above:Result Comment: Satisfactory for evaluation. Endocervical and/or squamous metaplastic cells (endocervical component) are present. Performed at: WBPerformed By: #### [id number] #### [facility] [address] [place] [address] Dr. Do Campbell C AB CASCADE TO QUANT PCR GENOon 37-74-9437RQM AB<0.1 Normal0.0-0.9[facility] on above:Performed By: #### HEPCASC #### [facility] [address] [place] [address] Dr. Do AguilarInterpretation:CommentUC Medical Center on above:Result Comment: Negative Not infected with HCV, unless recent infection is suspected or other evidence exists to indicate HCV infection.Performed By: #### HEPCASC #### [facility] [address] [place] [address] Dr. Do AguilarLISOURAV PROFILEon 13-21-1267Rfpobcr [Mass/Vol]3.6 g/dLNormal3.4-5.0 [facility] on above:Performed By: #### LIVER #### [facility] [address] [place] [address] Dr. Do AguilarAlbumin/Globulin [Mass ratio]0.9 {ratio}NormalThe [facility] on above:Performed By: #### LIVER #### [facility] [address] [place] [address] Dr. Do Mccain [Catalytic activity/Vol]79 U/LLotcnf92-651Hdo [facility] on above:Performed By: #### LIVER #### [facility] [address] [place] [address] Dr. Do Adrian [Catalytic activity/Vol]51 U/VQawjid57-61Czs [facility] on above:Performed By: #### LIVER #### [facility] [address] [place] [address] Dr. Do Villagran [Catalytic activity/Vol]33 U/APrifqu14-18Ccc Sailaja HospitalComment on above:Performed By: #### LIVER #### [facility] [address] [address] [address] Do LopezI, CONJUGATED0.1 mg/dLNormal0.0-0.2The [facility] Comment on above:Performed By: #### LIVER #### [facility] [address] [address] [address] Do AguilarBilirubin [Mass/Vol]0.3 mg/dLNormal0.2-1.0The [facility] Comment on above:Performed By: #### LIVER #### [facility] [address] [place] [address] Dr. Do AguilarGlobulin (S) [Mass/Vol]4.2 g/dLNormalThe [facility] HospitalComment on above:Performed By: #### LIVER #### [facility] [address] [place] [address] Dr. Do AguilarProtein [Mass/Vol]7.8 g/dLNormal6.4-8.2[facility] Comment on above:Performed By: #### LIVER #### [facility] [address] [place] [address] Dr. Do Palafox 17-65-9500NZR3.457 uIU/mLNormal0.358-3.740Detwiler Memorial HospitalComment on above:Performed By: #### TSH #### [facility] [address] [place] [address] Dr. Do AguilarVITAMIN B12on 72-49-8140Mxqmpeihs (Vitamin B12) [Mass/Vol]1864.0 pg/mLCritically ijtb041.0-986.0[facility] Memorial HospitalComment on above:Performed By: #### VITB12 #### [facility] [address] [place] [address] Dr. Do AguilarHistory and Physicalon 38-60-1542Xwrbegm and Physical [id number]#1.00[facility] Operative Report - Surgeon/Physicianon 89-82-4691Scezezvru Report - Surgeon/[id number]#1.00OTSelect Medical Specialty Hospital - YoungstownCoding Summaryon 01-36-4779Pjoppc SummaryCODING DATE: 11/26/2016 [facility] STATUS: Home PAYOR: Medicaid HMO ADMIT DX: REASON FOR VISIT DX: R10.13 Epigastric pain R10.11 Right upper quadrant pain FINAL DX: PRINCIPAL: K29.70 Gastritis, unspecified, without bleeding SECONDARY: PROCEDURES DOCTOR NAME DATE 32277 EsophagogastroduodenTed mena Richard MD 11/21/2016 flexible, transoral; with biopsy, single or multiple NOTE: The code number assigned matches the documented diagnosis and / or procedure in the patient's chart. However, the narrative phrase printed from the coding software may appear abbreviated, or result in slightly different terminology. Coded By: Rosalba Laureano Date Saved: 11/26/2016 01:09 [facility] CenterConsent Formson 53-80-0913Grtqele Forms [id number]#1.00[facility] Intraoperative Noteon 77-29-0146Vfparbmegzklsn Note [id number]#1.00[facility] Intraoperative [id number]#1.00[facility] HospitalOperative Report - Surgeon/Physicianon 56-01-1766Dfojhtmko Report - Surgeon/PhysicianDATE OF PROCEDURE: 11/21/2016PREOPERATIVE DIAGNOSIS: Epigastric pain/right upper quadrant pain.POSTOPERATIVE DIAGNOSIS: Moderate gastritis.PROCEDURE PERFORMED: EGD with biopsy x1 from the antrum of the stomach forH. pylori testing.SURGEON: Juan Ramon Jean M.D.ANESTHESIA: Conscious sedation with Versed 6 mg IV, Demerol 50 mg IV.FINDINGS: As above.DISPOSITION: To the [facility] area in fair condition.INDICATIONS: The patient is a 36-year-old woman who has undergone alaparoscopic cholecystectomy several months ago. She is having epigastricpain. She presents for an EGD.PROCEDURE: The patient was brou [facility][note 3] into the endoscopy suite and placed inthe left lateral decubitus position. She was sedated withVersed andDemerol. A bite block was placed in her mouth. The gastroscope waslubricated and advancedthrough the bite block into the oropharynx and downthe esophagus. There was no evidence of any strictures of lesions. Uponentering the stomach, the gastric mucosa was moderately inflamed especiallyinthe antrum of the stomach. The endoscope was advanced through the pylorusand into the duodenum. Theduodenal bulb and sweep appeared normal. Thescope was then removed and the biopsy from the antrum of the stomach wasobtained for H. pylori testing. Hemostasis was evident. There was noevidence of anygastric or esophageal varices. The patient tolerated theprocedures without any difficulties. She will follow-up with me in two weeks.Juan Ramon Jean M.D.JOB #: [id number]: 11/21/2016T: 11/21/2016[Electronically Signed on: 12/03/2016 07:09 EDT] Juan Ramon Jean MD Generated Domain User for [id number][Verified on: 12/03/2016 07:09 EDT] Juan Ramon Jean MD[Transcribed on: 11/21/2016 11:37EDT]GDUNMansfield HospitalTelemetry Stripson 11-24-2016 Telemetry [id number]#1.00OTGTIFFNoOhioHealth Doctors HospitalTelemetry Strips [id number]#1.00OTGTIFFFairfield Medical Center HospitalH. Pylori Gastricon 11-21-2016H. Pylori Rico Int CtrlPassNoMercy Health Fairfield Hospital Comment on above:Order Comment: H. (ANTRUM)Result Comment: PassPerformed By: #### [id number] ####[facility] (DEFAULT)[address] [place], [place] [address]M. Pylori GastricNegativeNocone health annie penn hospitalNegativeTrumbull Memorial HospitalComment on above: Order Comment: H. (ANTRUM)Result Comment: NegativePerformed By: #### [id number] ####[facility] (DEFAULT)[address] [place], [place] [address]Bvuapodba Clinical Summaryon 06-67-7116Nzchggjpn Clinical SummarySelect Medical Specialty [facility] SURGERYClinical Discharge SummaryPERSON INFORMATIONName ROSE KARMA BANEGAS Age 36 Years 80Sex FEMALE Language Moldovan PCP DEFRANCE, DAVIDMarital Status [facility] SurgeryG[facility] [id number] Acct# Arrival 11/21/16 07:22:21Visit ReasonEGD - EPIGASTRIC ABDOMINAL PAIN Acuity LOS 013 23:19Address:[address] [facility] [id number] mment:PROVIDER INFORMATIONVITALS INFORMATIONVital Sign Triage LatestTemp OralTemp Temporal 36.4 DegC 36.4 DegCTemp IntravascularTemp AxillaryTemp Hoofck68 Sat 100 % 97 %Respiratory Rate 16 br/min 16 br/minPeripheral Pulse Rate 81 bpm 95 bpmApical Heart RateBlood Pressure 122 mmHg / 68 mmHg 110 mmHg/ 53 mmHgComment:MEDICAL INFORMATIONAllergy Info:CeleXA; KeflexPrescriptions Given:Home Meds Displayalbuterol (Ventolin HFA 90 mcg/inh inhalation aerosol) 2 puff(s), INH, q4hr, PRN: for wheezing, # 18 gm, 0 Refill(s)cetirizine (cetirizine 10 mg oral tablet) 1 tab(s) ( 10 mg ), PO, Daily, PRN: for allergy symptoms, # 10 tab(s), 0 Refill(s)cyclobenzaprine (THP Cyclobenzaprine TAB 10mg (Flexeril)) 1tab(s), PO, TID, PRN: for spasm, # 30 [...] oral delayed release capsule) 1 cap(s) ( 20mg ), PO, BID, # 90 cap(s), 0 Refill(s)Medication List:Continue These Medications:albuterol (Ventolin HFA 90 mcg/inh inhalation aerosol) 2 puff(s) Inhalation Every 4 hours as needed for for wheezingcetirizine (cetirizine 10 mg oral tablet) 10 mg Oral every day as needed for for allergy symptomscyclo benzaprine (THP Cyclobenzaprine TAB 10mg (Flexeril)) 1 tab(s) [...] capsule) 20 mg Oral 2 times a dayComment: Lab and Radiology ResultsLaboratory or Other Results This Visit (last charted value for your 11/21/2016 visit) Chemistry 11/21/2016 7:44 AM U Preg: NegativeDIET & ACTIVITYPatient Activity Level:As ToleratedPatient Diet:RegularPatient Activity Restrictions:No drivingDISCHARGE INFORMATIONDischarge Disposition:Discharge Location:DEPART REASON INCOMPLETE INFORMATIONPATIENT EDUCATION INFORMATIONInstructions:Follow up:With: Address: When:Juan Ramon Jean [address] [place] [address] Business (1) Within 2 to 4 weeksComments:Call for follow up appointmentWith: Address: When:DOMENICA OLIVA [address] [place] [address] Business (1)DIAGNOSISAcute gastritisComment:PHYS DOC NOTESNoMercy Health Fairfield Hospital Inpatient Patient Summaryon 26-86-4298Fhmoozmbv Patient [address] [id number] patient Discharge InstructionsName: KARMA SRDOB: [birth year] Address: [address] [place] [address] Care Provider:Name: DOMENICA OLIVAPhone: Discharge Diagnosis: Acute [...] or business decisions or sign any legal documentsTrumbull Memorial Hospital would like to thank you for allowing us to assist you with your healthcare needs. The following includes patient education materials and information regarding your injury/illness.KARMA SR has been given the following list of follow-up instructions, prescriptions, and patient education materials:Follow-up InstructionsWith: Address: When:Juan Ramon Jean [address] [id number] [facility] (1) Within 2 to 4 weeksComments:Call for follow up appointmentWith: Address: When:DOMENICA OLIVA [address] [place] [address] [facility] ()MedicationsDuring the course of your visit, your medication list was updated with the most current information. The details of those changes are reflected below:Medications to Con tinue That Have Not ChangedOther Medicationsalbuterol (Ventolin HFA [...] as needed for pain.omeprazole (omeprazole 20 mg oraldelayed release capsule) 1 cap Oral 2 times a day.It is important to always keep an active list of medications available so that you can share with other providers and manage your medications appropriately. As an additional courtesy, we are also providing you with your final active medications listthat you can keep with you.albuterol (Ventolin HFA [...] effusion) NOUrinary Tract Infection YesAntibiotics Aren?t Always theAnswerwww.cdc.gov/getsmart GET SMART Know When Antibiotics Ebony.[place]. Department of Health and Human S ervicesCenters for Disease Control and Prevention October 2013[facility] Endo Intraoperative Recordon 61-07-2130JFFJ Endo Intraoperative RecordMA Endo Intra-Op Record Summary Primary Physician: Juan Ramon Jean MD Date/Time: 11/21/16 08:37:38 Pt. Name: KARMA SR./Sex: 1980 FEMALE Med Rec #: [id number] Physician: Juan Ramon Jean MD Financial #: [id number] Pt. Type: D Room/Bed: / Admit/Disch: 11/21/16 [...] 1 Entry 2 Entry 3 Case Attendee Felecia Jean Debra L McDavid, Jane RN Role Performed Surgeon - Primary Concert Manager Concert Manager Time In 11/21/16 08:06:00 11/21/16 08:06:00 [...] PAIN Start 11/21/16 08:15:00 Stop 11/21/16 08:18:00 Anes thesia Type Conscious Sedation Surgical Service Gastroenterology Wound [...] Gastroenterology ASA Class N/A Diagnosis Preop Diagnosis EPIGASTRICABDOMINAL Postop Same As Preop No PAIN Postop Diagnosis gastritis Last Modified By: Robyn Castillo11/21/16 08:25:12 Post-Care Text: O.760 Patient receives consistent and comparable care regardless of the setting Time Out EN MAGR Entry 1 Time out date/time 11/21/16 08:07:00 All team members Yes have introduced themselves by name and role Surgeon, Yes Surgeon reviews No anesthesia, nurse criticalor confirm patient, unexpected steps, site, procedure operative duration, anticipated blood loss Anesthesia team No Nursing team Yes reviews any reviews sterility patient-specific (including concernsindicator results) and equipment issues/concerns Antibiotic N/A Is [...] Feet Uncrossed? Yes Press Points Checked Yes Additi onal lateral right side up Positioning Device Pillow Information Outcome Met (O.80) Yes Last Modified By: Robyn Castillo 11/21/16 07:42:49 Post-Care Text: E.290 Evaluates musculoskeletal status O.80Patient is free from signs and symptoms of injury related to positioning Cultures and Specimens EN MAGR Pre- Care Text: A.350 Assesses susceptibility for infection A.10 Confirms patient identity Im.320 Manages culture specimen collection Im.330 Manages specimen handling and disposition Entry 1 Cultures Ordered No Specimens Ordered Yes Outcome Met (O.40) Yes Last Modified By: Robyn Castillo 11/21/16 08:24:07 Post- Care Text: E.40 Evaluates correct processes have been [...] Unfinalizing Freetext Reason for Unfinalizing 11/21/16 08:37 [facility] Pick [facility] Endo Postoperative Recordon 35-89-3704INVS Endo Postoperative RecordMAGR Endo Phase II Record Summary Primary Physician: Juan Ramon Jean MD Date/Time: 11/21/16 10:02:07 Pt. Name: KARMA SR/Sex: 1980 FEMALE Med Rec #: [id number] Physician: Juan Ramon Jean MD Financial #: [id number] Pt. Type: D Room/Bed: / Admit/Disch: 11/21/16 07:22:21 - Institution: Phase II Case Times EN MAGR Pre- Care Text: Patient is free from s/s of injury. Patient remains free from compromised physical state related to surgery or anesthesia. Patient comfort maintained. Patient/family verbalize understanding of discharge instructions. E ntry 1 In PACU II 11/21/16 08:25:00 Discharge from PACU 11/21/16 09:45:00 II Last Modified By: Cammy Barroso RN 11/21/16 10:02:02 Post-Care Text: The patient remains free from s/s of injury. Patient'svital signs stable, circulation maintained, return to preop mental and physical status, opsite/dressing intact, minimal or absent nausea and vomiting, tolerates po intake. Patient verbalizes adequatepain control. Patient/family express understanding of discharge instructions. [...] with pt and girlfriend, verbalized understanding. Copy ofinstructions given to pt. Pt states she'll have to do cooking tonight because she has 5 kids-reminded again what is stated in disch. instructions. 0930 Assisted up to BR to vd qs. Enc to C&DB, edwards s effectively. IV discont, bleeding controlled. Pt dressing. 0945 Disch per W/C to private car. Finalized By: Cammy Barroso RN Document Signatures Signed By: Cammy Barroso RN 11/21/16 10:02[facility] Endo Preoperative Recordon 72-49-4135LRCD Endo Preoperative RecordMA Endo Pre-Op Record Summary Primary Physician: Juan Ramon Jean MD Finalized Date/Time: 11/21/16 08:27:58 Pt. Name: KARMA SR/Sex: 1980 FEMALE Med Rec #: [id number] Physician: Juan Ramon Jean MD Financial #: [id number] Pt. Type: D Room/Bed: / Admit/Disch: 11/21/16 07:22:21 - Institution: Pre-Op Case Times EN MAGR Pre-Care Text: Patient will be optimally prepared for surgery. Patient is free from s/s of injury. Provide information to patient/familyrelated to plan of care. Verify patient allergies. Confirm identity and verify consent before the operative or invasive procedure. Entry 1 Patient Arrival Time 11/21/16 07:35:00 Preop Departure 11/21/16 08:00:00 Last Modified By: Cammy Barroso RN 11/21/16 08:27:57 Post-Care Text: Patient is preparedmentally and physically and is ready for surgery. The patient remains free from s/s of injury. Patient/family express understanding of plan of care and participate in decisions affecting his or her perioperrative plan of care. Allergies documented appropriately. Patient identifiers and consent correct. General Comments: Pt arrive per amb. Pt denies any CP, SOB, pacemaker/defib., Hx of S/S of flu,or sleep apnea. Pt C/O RUQ pain rating 7-8 Finalized By: Cammy Barroso RN Document Signatures SignedBy: Cammy Barroso RN 11/21/16 08:27Normal Tr[facility]ull Memorial HospitalPregnancy Test Urine 1on 11-21-2016U PregNegativeAultman Orrville HospitalComment on above:Result Comment: NegativePerformed By: #### [id number] ####[facility] (DEFAULT)[address] [place], [place] [address]K Preg Internal ControlLakeHealth TriPoint Medical CenterComment on above:Result Comment: Pass Performed By: #### [id number] ####[facility] (DEFAULT)[address] [place] [address] Vital Signs Date TimeVital SignValuePerforming TvcgramzoPvyrwqxk34-51-6216 10:57-0400Body qjwnyi086 Maria G Zambrano MD Work Phone: NORusk Rehabilitation CenterFtisunifht18-28-1571 10:57-0400Body mass index (BMI) [Ratio]40.21 kg/g2AiwkqCleo Zambrano MD Work Phone: [phone]10-02-2025 10:57-0400Body rcvetn412.97 kgCleo Zambrano MD Work Phone: [phone] [place], [place] [address]Gniqinqtvi27-75-9220 10:57-0400Diastolic blood jougziai10 mm[Hg]Cleo Zambrano MD Work Phone: [phone] [place], [place] [address]Nktarpzhox00-06-4019 10:57-0400Heart etnx667 /min Cleo Zambrano MD Work Phone: [phone] [address]10-02-2025 10:57-0400Respiratory rate20 /minCleo Zambrano MD Work Phone: [phone] [place], [place] [address]Frnicdxjtv65-38-6651 10:57-8981FmY3% (BldA) [Mass fraction]99 %Cleo Zambrano MD Work Phone: [phone] [place], [place] [address]Sdkqspnktt73-40-6228 10:57-0400Systolic blood nbausxxq791 mm[Hg]Cleo Zambrano MD Work Phone: [phone] [place], [place] [address]Cvnodfbuml92-30-9238 23:29-0400Diastolic blood rnwvyart07 mm[Hg]Benja Walker MD Work Phone: [facility]09-18-2025 23:29-4622LvL2% (BldA) [Mass fraction]91 %Benja Walker MD Work Phone: [facility]09-18-2025 23:29-0400Systolic blood vzwbepdp38 mm[Hg]Benja Walker MD Work Phone: [address] [place] [address]-18-2025 23:27-0400Body dtbsvajgpsp16.59 [degF]Benja Walker MD Work Phone: [address] [place] [address]-18-2025 23:27-0400Heart rate76 /minIabdiel Walker MD Work Phone: [facility]09-18-2025 23:27-0400 Respiratory rate18 /Ryan Walker MD Work Phone: [facility]09-18-2025 20:58-0400Body ahpzgf147 cmBenja Walker MD Work Phone: [facility]09-18-2025 20:58-0400Body mass index (BMI) [Ratio]40.74 kg/m2Benja Walker MD Work Phone: [facility]09-18-2025 20:58-0400Body jpeyug122.33 kgBenja Walker MD Work Phone: [facility]09-18-2025 08:50-0400Body aobzza429.02 cmKatfer Mcneal SECURITIES UNDERWRITER Work Phone: [facility]09-18-2025 08:50-0400 Body mass index (BMI) [Ratio]38 kg/m8Ojprvflxbfer Mcneal SECURITIES UNDERWRITER Work Phone: [facility]09-18-2025 08:50-0400 Body nmgajc92.3 kgKatfer Mcneal SECURITIES UNDERWRITER Work Phone: [facility]09-16-2025 18:15-0400 Diastolic blood nxqkbdta05 mm[Hg]Martir Stovall MD Work Phone: [facility]09-16-2025 18:15-0400Heart rate81 /Dominick Stovall MD Work Phone: [facility]09-16-2025 18:15-0400 Respiratory rate13 /minThomas Sia DALE Work Phone: [facility] [facility]09-16-2025 18:15-9517FzU4% (BldA) [Mass fraction]97 %Martir Stovall MD Work Phone: [facility]09-16-2025 18:15-0400Systolic blood ymeagpes921 mm[Hg]Martir Stovall MD Work Phone: [facility]09-16-2025 15:00-0400Body xdeomz578 cmThomjosr Stovall MD Work Phone: [facility]09-16-2025 15:00-0400Body mass index (BMI) [Ratio]40.74 kg/r4Ivjlidaugusto Stovall MD Work Phone: [facility]09-16-2025 15:00-0400Body xniyyzczqga43 [degF]Martir Stovall MD Work Phone: [facility]09-16-2025 15:00-0400Body udffpm759.33 kgThaugusto Stovall MD Work Phone: [facility]09-12-2025 14:02-0400Body kygvrw350 cmPaul Biedenbach DO Work Phone: [facility] HospitalDcvgckjtmw08-64-1228 14:02-0400Body mass index (BMI) [Ratio]40.74 kg/m2Paul Biedenbach DO Work Phone: [facility] HospitalNbatgbgogz83-72-2267 14:02-0400Body .33 kgPaul Biedenbach DO Work Phone: [facility] HospitalWgpywehsrn07-84-6088 15:54-0400Diastolic blood mm[Hg]Davie Mcneal SECURITIES UNDERWRITER Work Phone: [facility]09-04-2025 15:54-0400 Heart rate78 /minDavie Mcneal SECURITIES UNDERWRITER Work Phone: [facility]09-04-2025 15:54-0400 Systolic blood lmgftbeg629 mm[Hg]Davie Mcneal SECURITIES UNDERWRITER Work Phone: [facility]09-03-2025 13:51-0400 Body mass index (BMI) [Ratio]40.74 kg/u3Hxvha Shirlene DO Work Phone: [facility] HospitalDdpnsbmpux84-14-0591 13:51-0400Body hahmkh168.33 kgCorey Shirlene DO Work Phone: [facility] HospitalZrrzpisnoj60-23-1411 13:51-0400Diastolic blood qzzhotrj48 mm[Hg]Roel Shirlene DO Work Phone: [facility] HospitalWyulvydkjq24-41-0546 13:51-0400Systolic blood zylyzoki317 mm[Hg]Roel Shirlene DO Work Phone: [facility] HospitalQkjwhsjcbe15-25-1820 10:19-0400Body whkaun331 cm Shira Biedenbach DO Work Phone: [facility] HospitalVwgygdsfpk20-00-0494 10:19-0400Body mass index (BMI) [Ratio]40.74 kg/m2Paul Biedenbach DO Work Phone: [facility] HospitalRloffmlsfp73-98-8916 10:19-0400Body .33 kgPaul Biedenbach DO Work Phone: [facility] HospitalHrdeyjdgcx94-96-7566 13:48-0400Diastolic blood mm[Hg]Davie Mcneal SECURITIES UNDERWRITER Work Phone: [facility]07-23-2025 13:48-0400 Heart rate97 /minDavie Mcneal SECURITIES UNDERWRITER Work Phone: [facility]07-23-2025 13:48-0400 Respiratory rate16 /minDavie Mcneal SECURITIES UNDERWRITER Work Phone: [facility]07-23-2025 13:48-0400 SaO2% (BldA) [Mass fraction]91 %Davie Mcneal SECURITIES UNDERWRITER Work Phone: [facility]07-23-2025 13:48-0400 Systolic blood nqbkvhra697 mm[Hg]Davie Mcneal SECURITIES UNDERWRITER Work Phone: [facility]07-23-2025 12:55-0400 Body [degF]Davie Mcneal SECURITIES UNDERWRITER Work Phone: [facility]07-23-2025 12:45-0400 Inhaled oxygen flow rate3 L/minDavie Mcneal SECURITIES UNDERWRITER Work Phone: [facility]07-23-2025 11:00-0400 Body vqqpae917.02 cmDavie Mcneal SECURITIES UNDERWRITER Work Phone: [facility]07-23-2025 11:00-0400 Body pdyrec62.52 kgDavie Mcneal SECURITIES UNDERWRITER Work Phone: [facility]07-22-2025 13:04-0400 Body cmPaul Biedenbach DO Work Phone: [facility] HospitalJrsvcgemeq37-15-7650 13:04-0400Body mass index (BMI) [Ratio]40.74 kg/m2Paul Biedenbach DO Work Phone: 1([phone]-[facility] HospitalYwszmnkkda97-62-9836 13:04-0400Body alkqgp828.33 kgPaul Biedenbach DO Work Phone: 1(378)855-[facility] HospitalEowbtyvygd55-64-1054 10:52-0400Body cm Shira Biedenbach DO Work Phone: [phone]-[facility] HospitalLbazwzinqs79-33-9761 10:52-0400Body mass index (BMI) [Ratio]40.74 kg/m2Paul Biedenbach DO Work Phone: [facility] HospitalXjayxakfrp07-78-9748 10:52-0400Body .33 kgPaul Biedenbach DO Work Phone: [facility] HospitalAbbijvzumk08-99-3775 13:17-0400Body cuaqvv266 cm Shira Biedenbach DO Work Phone: [facility] HospitalSwkavhwboa56-02-7266 13:17-0400Body mass index (BMI) [Ratio]40.74 kg/m2Paul Biedenbach DO Work Phone: [facility] HospitalNfjnuchfrt71-05-9061 13:17-0400Body edytap071.33 kgPaul Biedenbach DO Work Phone: [facility] HospitalItpfychwje98-43-2906 12:13-0400Diastolic blood lmstvome27 mm[Hg]Davie Baileychris SECURITIES UNDERWRITER Work Phone: [phone])973-[address] [place], [place] 2641106-11-2025 12:13-0400 Heart rate97 /minJennyfer Mcneal SECURITIES UNDERWRITER Work Phone: [phone])[address]06-11-2025 12:13-0400 Respiratory rate16 /minDavie Mcneal SECURITIES UNDERWRITER Work Phone: [phone])[address]06-11-2025 12:13-0400 SaO2% (BldA) [Mass fraction]94 %Daviefer Mcneal SECURITIES UNDERWRITER Work Phone: 1(072)943-[address] [place], [place] 2641106-11-2025 12:13-0400 Systolic blood uuazradc819 mm[Hg]Davie Avaloschris SECURITIES UNDERWRITER Work Phone: [phone])[address]06-11-2025 10:50-0400 Body glhsshshzak19 [degF]Daviefer Mcneal SECURITIES UNDERWRITER Work Phone: 1(826)228-[address] [place], [place] 2641106-11-2025 10:23-0400 Inhaled oxygen flow rate8 L/minDavie Mcneal SECURITIES UNDERWRITER Work Phone: 1(210)155-[address] [place], [place] 2641106-11-2025 06:32-0400 Body .02 cmDavie Mcneal SECURITIES UNDERWRITER Work Phone: 1(611)832-[address] [place], [place] 2641106-11-2025 06:32-0400 Body emmynt483 kgDavie Mcneal SECURITIES UNDERWRITER Work Phone: 1([phone])[address]06-09-2025 13:24-0400 Body bipcaq601.02 cmDavie Mcneal SECURITIES UNDERWRITER Work Phone: [facility]06-09-2025 13:24-0400 Body mass index (BMI) [Ratio]39.8 kg/a8YqkfmraqsDavie Mcneal APRN Work Phone: [facility]06-09-2025 13:24-0400 Body dxygan348.05 kgKatfer Mcneal SECURITIES UNDERWRITER Work Phone: [facility]06-05-2025 10:45-0400 Body iorprj960 Maria G Zambrano MD Work Phone: [facility] HospitalWfritpfmtw53-90-0787 10:45-0400Body mass index (BMI) [Ratio]41.45 kg/j9NmqfyCleo Zambrano MD Work Phone: [facility] HospitalBokbbqklat96-14-8746 10:45-0400Body gwfurr145.14 kgCleo Zambrano MD Work Phone: [facility] HospitalAhlmryrzch52-29-9048 10:45-0400Diastolic blood heocunfz36 mm[Hg]Cleo Zambrano MD Work Phone: [facility] HospitalItwszmlarm48-06-9489 10:45-0400Heart rate87 /min Cleo Zambrano MD Work Phone: [facility] HospitalGxwpzxhcfq79-21-7393 10:45-0400Respiratory rate16 /minCleo Zambrano MD Work Phone: [facility] HospitalFgmhflppto35-32-6542 10:45-8918TyD0% (BldA) [Mass fraction]97 %Cleo Zambrano MD Work Phone: [facility] HospitalKsspgpehoh57-54-0183 10:45-0400Systolic blood imeybbkv705 mm[Hg]Cleo Zambrano MD Work Phone: [facility] HospitalFhwfacdosn03-04-5677 08:42-0400Body mass index (BMI) [Ratio]40.48 kg/o6KgqmsRoel Garber DO Work Phone: [facility] HospitalTawaleevam64-49-7972 08:42-0400Body tggpby253.65 kgCorey Shirlene DO Work Phone: [facility] HospitalWtihkhcfpj59-60-7186 08:42-0400Diastolic blood crqzmjun30 mm[Hg]Roel Shirlene DO Work Phone: [facility] CenterUzvbymmmho84-39-9505 08:42-0400Systolic blood hefeujbc151 mm[Hg]Roel Shirlene DO Work Phone: [facility] HospitalPnwytnaxis15-28-5007 11:06-8486QaE9% (BldA) [Mass fraction]93 %Daviefer Mcneal SECURITIES UNDERWRITER - JACK STRIP ASSEMBLER Work Phone: [facility] [facility] HospitalVlswfx00-91-5250 11:01-0400Body vtaved958 cmDavie Mcneal SECURITIES UNDERWRITER - JACK STRIP ASSEMBLER Work Phone: [facility] [facility] HospitalOcyeyy91-07-9350 11:01-0400Body mass index (BMI) [Ratio]38.97 kg/r3BsuutswrgDavie Mcneal SECURITIES UNDERWRITER - JACK STRIP ASSEMBLER Work Phone: [facility] HospitalRhrmus66-90-7796 11:01-0400Body shyfkwsmzhy34.5 [degF]Davie Mcneal SECURITIES UNDERWRITER - JACK STRIP ASSEMBLER Work Phone: [facility] [facility] HospitalJmzjbg26-71-7727 11:01-0400Body gftxyq20.79 kgDavie Mcneal SECURITIES UNDERWRITER - JACK STRIP ASSEMBLER Work Phone: [facility] HospitalMhbynj72-31-3774 11:01-0400Diastolic blood iqyjgnor06 mm[Hg]Davie Mcneal SECURITIES UNDERWRITER - JACK STRIP ASSEMBLER Work Phone: [facility] [facility] HospitalLmzyju44-85-7085 11:01-0400Heart whgm870 /minDavie Mcneal SECURITIES UNDERWRITER - JACK STRIP ASSEMBLER Work Phone: [facility] [employer] [facility] HospitalNuxgxv86-60-8027 11:01-0400 Respiratory rate16 /minDavie Mcneal SECURITIES UNDERWRITER - JACK STRIP ASSEMBLER Work Phone: [facility]05-17-2025 11:01-0400Systolic blood ydngdeai852 mm[Hg]Davie Fredis SILVESTREN - JACK STRIP ASSEMBLER Work Phone: [facility]05-01-2025 09:56-0400Diastolic blood xouykhwe23 mm[Hg]Roel Shirlene DO Work Phone: [facility] HospitalOazoxubdkk43-90-5002 09:56-0400Systolic blood lxdsekqk724 mm[Hg]Roel Shirlene DO Work Phone: [facility] HospitalObflraehcz75-24-2598 09:51-0400Body cm Shira Biedenbach DO Work Phone: [facility] HospitalMgfohydlem42-71-3656 09:51-0400Body mass index (BMI) [Ratio]40.74 kg/m2Paul Biedenbach DO Work Phone: [facility] HospitalTfpraecwll62-38-3679 09:51-0400Body wljahh282.33 kgPaul Biedenbach DO Work Phone: [facility] HospitalLrwkflkzwv41-73-5938 09:30-0400Body .02 cmLucas Shammo GIRL FRIDAY-BC Work Phone: [facility]04-03-2025 09:30-0400 Body mass index (BMI) [Ratio]38.7 kg/a4Moysn Shammo GIRL FRIDAY-BC Work Phone: [facility]04-03-2025 09:30-0400 Body quhgbk05.1 kgLucas Shammo GIRL FRIDAY-BC Work Phone: [facility]04-03-2025 09:30-0400 Diastolic blood mm[Hg]Luz Maria Shammo GIRL FRIDAY-BC Work Phone: [facility]04-03-2025 09:30-0400 Systolic blood qtwkfuto597 mm[Hg]Luz Maria Shammo GIRL FRIDAY-BC Work Phone: 1(419)334-[address] [place], [place] 0807703-27-2025 11:32-0400 Body mass index (BMI) [Ratio]40.39 kg/a6Gwrkh Shirlene DO Work Phone: [facility] HospitalBhnavbybte61-20-0440 11:32-0400Body .42 kgCorey Shirlene DO Work Phone: [facility] HospitalKglinnjosu63-27-7844 11:32-0400Diastolic blood gnoztgkg32 mm[Hg]Roel Shirlene DO Work Phone: [facility] HospitalErjxlvctgc40-99-7290 11:32-0400Systolic blood mglgtjfe554 mm[Hg]Roel Shirlene DO Work Phone: [facility] HospitalShipviyxto27-82-8467 10:28-0500Body jssovo398 cm Shira Biedenbach DO Work Phone: [facility] HospitalXgkjbtmccd79-15-9022 10:28-0500Body mass index (BMI) [Ratio]38.79 kg/m2Paul Biedenbach DO Work Phone: [facility] HospitalCejoauwfvp13-09-3187 10:28-0500Body exztgw58.34 kgPaul Biedenbach DO Work Phone: [facility] HospitalIohglbqget74-98-2087 10:57-0500Body mass index (BMI) [Ratio]38.79 kg/f1Lixlk Shrilene DO Work Phone: [facility] HospitalDwyaguasfj62-15-7421 10:57-0500Body alxqbt39.34 kgCorey Shirlene DO Work Phone: [facility] HospitalHsdmzaqfqn84-96-5373 10:57-0500Diastolic blood dnyvdhvv64 mm[Hg]Roel Shirlene DO Work Phone: [facility] HospitalQhrvimzizq30-46-4361 10:57-0500Systolic blood dhjitqbo058 mm[Hg]Roel Shirlene DO Work Phone: [facility] HospitalVthqlppfly94-56-6675 10:31-0500Body apekkw692 cm Cleo Zambrano MD Work Phone: 1(419)[address] [place], [place] 1522202-06-2025 10:31-0500Body mass index (BMI) [Ratio]39.33 kg/h7NarhlCleo Zambrano MD Work Phone: 1([phone])[address]02-06-2025 10:31-0500Body pnvqaa909.7 kgCleo Zambrano MD Work Phone: 1([phone])[address]02-06-2025 10:31-0500Diastolic blood acurkzjn41 mm[Hg]Cleo Zambrano MD Work Phone: 1(503)[address]02-06-2025 10:31-0500Heart zete310 /min Cleo Zambrano MD Work Phone: 1(753)[address]02-06-2025 10:31-0500Respiratory rate16 /minCleo Zambrano MD Work Phone: 1(297)[address] [place], [place] 1522202-06-2025 10:31-2200HpE1% (BldA) [Mass fraction]98 %Cleo Zambrano MD Work Phone: 1(242)[address]02-06-2025 10:31-0500Systolic blood naomzqdy776 mm[Hg]Cleo Zambrano MD Work Phone: 4([phone])[address]11-21-2024 09:35-0500Body aripxl717.02 cmLucas Shammo GIRL FRIDAY-BC Work Phone: [facility]11-21-2024 09:35-0500 Body mass index (BMI) [Ratio]38.8 kg/t0Tjrnq Shammo GIRL FRIDAY-BC Work Phone: [facility]11-21-2024 09:35-0500 Body jfmane34.4 kgLucas Shammo GIRL FRIDAY-BC Work Phone: [facility]11-13-2024 17:30-0500 Diastolic blood esghqajc66 mm[Hg]Tirso Junior DO Work Phone: [facility]11-13-2024 17:30-0500Heart rate95 /minJaveria Junior DO Work Phone: [facility] [employer] [facility] HospitalCloudFactoryJdnctr53-17-2711 17:30-2464UgT4% (BldA) [Mass fraction]99 %Tirso Junior DO Work Phone: [facility] [employer] [facility] Uslilg65-69-2099 17:30-0500Systolic blood lrkymqnf459 mm[Hg]Tirso Junior DO Work Phone: [facility] CenterT[facility] Hfknhv38-36-4862 15:30-0500 Respiratory rate16 /minMeredithia Junior DO Work Phone: [facility] Naejib84-57-5018 14:24-0500Body cmMeredithia Junior DO Work Phone: [facility] CenterT[facility] Tbmxeg86-81-9985 14:24-0500Body mass index (BMI) [Ratio]37.55 kg/d8Vgemohl Junior DO Work Phone: [facility] CenterT[facility] Nlrqrx36-76-8032 14:24-0500Body acapwopobez33.1 [degF]Tirso Junior DO Work Phone: [facility] CenterT[facility] Jwbavw32-84-6213 14:24-0500Body ketmcr99.16 kgMeredithia Junior DO Work Phone: [facility]09-30-2024 11:10-0400Body Viktor Neville JACK STRIP ASSEMBLER Work Phone: [facility] CenterHeggtlltzl63-74-9349 11:10-0400Body mass index (BMI) [Ratio]35.96 kg/j6UmetvdBrittany Neville JACK STRIP ASSEMBLER Work Phone: [facility] CenterBjnqifcdvt62-47-8122 11:10-0400Body haabts34.08 kgBrittany Spencerr JACK STRIP ASSEMBLER Work Phone: [facility] CenterZfvdvmiuvy92-89-7656 10:26-0400Diastolic blood oisprfbk32 mm[Hg]Brittany Neville JACK STRIP ASSEMBLER Work Phone: [facility] HospitalOldynkyikc35-51-0535 10:26-0400Heart rate90 /min Brittany Neville JACK STRIP ASSEMBLER Work Phone: [facility] HospitalTulllyntkl98-47-3191 10:262583NtD2% (BldA) [Mass fraction]96 %Brittany Neville JACK STRIP ASSEMBLER Work Phone: [facility] HospitalKxyyxnucdb72-06-0993 10:26-0400Systolic blood mm[Hg]Brittany Neville JACK STRIP ASSEMBLER Work Phone: [facility] HospitalVxnkvlsbnx18-98-3080 09:17-0400Body cm Dwayne Khoury MD Work Phone: [facility]08-08-2024 09:17-0400Body mass index (BMI) [Ratio]36.36 kg/e5KppkfrtnuyDwayne Khoury MD Work Phone: [facility]08-08-2024 09:17-0400Body .1 kgDwayne Khoury MD Work Phone: [phone]08-08-2024 09:17-0400Diastolic blood nlkiqquy16 mm[Hg]Dwayne Khoury MD Work Phone: [facility]08-08-2024 09:17-0400Heart rate 102 /minDwayne Khoury MD Work Phone: [facility]08-08-2024 09:17-0400 Respiratory rate16 /minDwayne Khoury MD Work Phone: [facility]08-08-2024 09:17-0400Systolic blood npokywgg396 mm[Hg]Dwayne Khoury MD Work Phone: [facility]04-02-2024 14:32-0400Body mass index (BMI) [Ratio]36.67 kg/o2QuzzenpaDeepika Cox MD Work Phone: [facility]04-02-2024 14:32-0400Body .89 kgDeepika Cox MD Work Phone: [facility]04-02-2024 14:32-0400Diastolic blood rmanvojq089 mm[Hg]Deepika Cox MD Work Phone: [facility]04-02-2024 14:32-0400Heart rate 83 /Lynn Cox MD Work Phone: [facility]04-02-2024 14:32-0400Systolic blood hfjoqads525 mm[Hg]Deepika Cox MD Work Phone: [facility]03-21-2024 11:22-0400Body .02 cm[facility]03-21-2024 11:22-0400Body mass index (BMI) [Ratio]36.5 kg/r3XzcviylxcOhiohealth [facility] Hospital03-21-2024 11:22-0400Body rarvsl27.44 kgOhio[facility] Hospital03-21-2024 10:39-0400Body oaytvf782.02 cmOhio[facility]03-21-2024 10:39-0400Body mass index (BMI) [Ratio]36.5 kg/k8HhdbfjijzOhiohealth [facility] Hospital03-21-2024 10:39-0400Body iswvth68.49 [facility] 05-21-2023 10:39-0400Diastolic blood tzblinea72 mm[Hg][facility]03-21-2024 10:39-0400Heart svcw422 /[facility] 05-21-2023 10:39-0400Respiratory rate18 /[facility] 05-21-2023 10:39-3789LtV1% (BldA) [Mass fraction]95 %[facility]03-21-2024 10:39-0400Systolic blood foxgdqtu957 mm[Hg][facility]02-27-2024 11:21-0500Body emxhje692 cmGaurav CALVO Work Phone: [facility]02-27-2024 11:21-0500Body mass index (BMI) [Ratio]36.14 kg/t7Cjhdfmk Nienberg PA Work Phone: [facility] HospitalSkaffl02-27-2024 11:21-0500Body .53 kgMatthew Nienberg PA Work Phone: [facility] HospitalWorld [employer] Vkfmtk40-21-2323 11:21-0500Diastolic blood hwubwfeo43 mm[Hg]Gaurav Mercertenzin PA Work Phone: [facility] HospitalWorld [facility] Ugsgew89-32-7622 11:21-0500Heart rate 87 /minMatthew Nienberg PA Work Phone: [facility] HospitalSkaffl02-27-2024 11:21-0500 Respiratory rate16 /minMatthew Nienberg PA Work Phone: [facility] [employer] Oaduai18-43-9458 11:21-9949VgW5% (BldA) [Mass fraction]97 %Gaurav Mercertenzin PA Work Phone: [facility] [employer] Hsngij63-14-5832 11:21-0500Systolic blood tqprqhai901 mm[Hg]Gaurav Mercertenzin PA Work Phone: [facility] [employer] Oelvew85-55-2659 12:41-0500Body mass index (BMI) [Ratio]36.49 kg/n4Flvyo Rumschlag DO Work Phone: [facility] [employer]02-19-2024 12:41-0500Body .44 kgBetty Rumschlag DO Work Phone: [facility] [employer]02-19-2024 12:41-0500Diastolic blood aiamvcwo41 mm[Hg]Shawna Rumschlag DO Work Phone: [facility] [employer]02-19-2024 12:41-0500Heart rate83 /minBetty Rumschlag DO Work Phone: [facility] [employer]02-19-2024 12:41-0500 Respiratory rate16 /minBetty Rumschlag DO Work Phone: [facility] [employer]02-19-2024 12:41-1607YjH3% (BldA) [Mass fraction]98 %Shawna Rumschlag DO Work Phone: [facility] [employer]02-19-2024 12:41-0500Systolic blood gfwgbmos098 mm[Hg]Shawna Rumschlag DO Work Phone: [facility] [employer]02-19-2024 12:39-0500Body zxpnbhipqxp29.3 [degF]Shawna Rumschlag DO Work Phone: [facility] [employer]01-17-2024 11:30-0500Diastolic blood mm[Hg]MD Yo Blank Work Phone: 1([phone]01-17-2024 11:30-0500 Heart rate95 /minMD Yo Blank Work Phone: 1(058)[address]01-17-2024 11:30-0500 Respiratory rate16 /minMD Yo Blank Work Phone: 1(809)[address]01-17-2024 11:30-0500 SaO2% (BldA) [Mass fraction]99 %MD Yo Blank Work Phone: 1(000)[address]01-17-2024 11:30-0500 Systolic blood meuxvfzf103 mm[Hg]MD Yo Blank Work Phone: 1(385)597-[address] [place], [place] 6256701-04-2024 09:15-0500 Body yddgmj048.02 cmDeSMARTProfessional, LLCernesto [employer] Other [employer] Other 01-04-2024 09:15-0500Body mass index (BMI) [Ratio] 37.57 kg/d1Dycgyhu [employer] Other [employer] Other 01-04-2024 09:15-0500Body vitqjn40.21 kgDereynaldo Adams Other [employer] Other 01-04-2024 09:15-0500Diastolic blood jbtcmabr88 mm[Hg] Gayathri Adams Other [employer] Other 01-04-2024 09:15-0500Respiratory rate18 /minDeborakasia Adams Other [facility] [employer] Other 01-04-2024 09:15-2147IiW5% (BldA) [Mass fraction]96 % Gayathri Adams Other [employer] Other 01-04-2024 09:15-0500Systolic blood soeweqex425 mm[Hg] Gayathri Adams Other [employer] Other 01-01-2024 19:24-0500Body plbpev678 cmChrsandra Sullivan DO Work Phone: [facility] [employer]01-01-2024 19:24-0500Body mass index (BMI) [Ratio]36.31 kg/m0BbraetzudSil Sullivan DO Work Phone: [facility] [employer]01-01-2024 19:24-0500Body mpocrjxbahy22.29 [degF]Sil Sullivan DO Work Phone: [facility] [employer]01-01-2024 19:24-0500Body wsevvz01.99 kgiSl Sullivan DO Work Phone: [facility] [employer]01-01-2024 19:24-0500Diastolic blood esiuuznt16 mm[Hg]Sil Sullivan DO Work Phone: [facility] [employer]01-01-2024 19:24-0500Heart rate82 /minSil Sullivan DO Work Phone: [facility] [employer]01-01-2024 19:24-0500 Respiratory rate18 /Agnes Sullivan DO Work Phone: [facility] [employer]01-01-2024 19:24-1268FsF5% (BldA) [Mass fraction]98 %Sil Sullivan DO Work Phone: [facility] [employer]01-01-2024 19:24-0500Systolic blood sipbdflq339 mm[Hg]Sil Sullivan DO Work Phone: [facility] [employer]12-07-2023 09:20-0500Body .02 cmRyan Scovanner Other [employer] Other 12-07-2023 09:20-0500Body mass index (BMI) [Ratio] 36.66 kg/m2Ryan Scovanner Other [employer] Other 12-07-2023 09:20-0500Body wxuwdj15.9 kgRyan Scovanner Other [employer] Other 11-16-2023 09:45-0500Body vbtkda693.02 cmDeborernesto Scally Other [employer] Other 11-16-2023 09:45-0500Body mass index (BMI) [Ratio] 36.68 kg/h4Kirdshf Scally Other [employer] Other 11-16-2023 09:45-0500Body vzrigu55.94 kgDeborah Scally Other [employer] Other 11-16-2023 09:45-0500Diastolic blood lbvvorrc63 mm[Hg] Gayathri Brooklynly Other [employer] Other 11-16-2023 09:45-0500Respiratory rate18 /minDeborakasia Barahonaly Other [employer] Other 11-16-2023 09:45-3563AbK0% (BldA) [Mass fraction]99 % Gayathri Adams Other [employer] Other 11-16-2023 09:45-0500Systolic blood nprsotsz215 mm[Hg] Gayathri Adams Other [employer] Other 11-08-2023 10:00-0500Body dfoffu744.02 cmRyan Scovanner Other [employer] Other 11-08-2023 10:00-0500Body mass index (BMI) [Ratio] 36.13 kg/m2Ryan Scovanner Other [employer] Other 11-08-2023 10:00-0500Body .53 kgRyan Scovanner Other [employer] Other 11-08-2023 10:00-0500Diastolic blood aoelntpy80 mm[Hg] Jan Scovanner Other [employer] Other 11-08-2023 10:00-0500Systolic blood byvfsouu123 mm[Hg] Jan Scovanner Other [employer] Other 06-29-2023 09:00-0400Body yqlfqk009.02 cmDawn Fitt Other [employer] Other 06-29-2023 09:00-0400Body mass index (BMI) [Ratio]35.8 kg/m2Dawn Fitt Other [employer] Other 06-29-2023 09:00-0400Body .67 kgDawn Fitt Other [employer] Other 05-30-2023 10:15-0400Body vvccif298.02 cmDeborah Scally Other [employer] Other 05-30-2023 10:15-0400Body mass index (BMI) [Ratio] 35.18 kg/s5Lfyksha Scally Other [employer] Other 05-30-2023 10:15-0400Body beyaau75.08 kgDeborah Scally Other [employer] Other 05-30-2023 10:15-0400Diastolic blood tzuhmmju29 mm[Hg] Gayathri Scally Other [employer] Other 05-30-2023 10:15-0400Respiratory rate18 /minDeborah Scally Other [employer] Other 05-30-2023 10:15-1744CzO7% (BldA) [Mass fraction]99 % Gayathri Scally Other [employer] Other 05-30-2023 10:15-0400Systolic blood finfydmg197 mm[Hg] Gayathri Scally Other [employer] Other 03-21-2023 11:15-0400Body sggkhy251.02 cmDeborah Scally Other [employer] Other 03-21-2023 11:15-0400Body mass index (BMI) [Ratio] 34.52 kg/o6Vcamioo Scally Other [employer] Other 03-21-2023 11:15-0400Body ndyrkv20.41 kgDeborah Scally Other [employer] Other 03-21-2023 11:15-0400Diastolic blood qhwxxesw08 mm[Hg] Gayathri Scally Other [employer] Other 03-21-2023 11:15-0400Respiratory rate18 /minDeborah Scally Other [employer] Other 03-21-2023 11:15-7544HrK9% (BldA) [Mass fraction]97 % Gayathri Scally Other [employer] Other 03-21-2023 11:15-0400Systolic blood yifzgxcg779 mm[Hg] Gayathri Scally Other [employer] Other 02-07-2023 11:15-0500Body .02 cmDeborah Scally Other [employer] Other 02-07-2023 11:15-0500Body mass index (BMI) [Ratio] 34.49 kg/h8Drhdoug Scally Other [employer] Other 02-07-2023 11:15-0500Body ypkfon53.32 kgDeborah Scally Other [employer] Other 02-07-2023 11:15-0500Diastolic blood aihanusk33 mm[Hg] Gayathri Scally Other [employer] Other 02-07-2023 11:15-0500Respiratory rate18 /minDeborah Scally Other [employer] Other 02-07-2023 11:15-4855VxT4% (BldA) [Mass fraction]98 % Gayathri Scally Other [employer] Other 02-07-2023 11:15-0500Systolic blood stveedkx815 mm[Hg] Gayathri Scally Other [employer] Other 02-07-2023 10:15-0500Body .02 cmDawn Fitt Other [employer] Other 02-07-2023 10:15-0500Body mass index (BMI) [Ratio] 34.49 kg/m2Dawn Fitt Other [employer] Other 02-07-2023 10:15-0500Body szahxv78.32 kgDawn Fitt Other [employer] Other 12-28-2022 10:00-0500Body pnkryn880.02 cmDawn Fitt Other [employer] Other 12-27-2022 11:45-0500Body .02 cmDeborah Scally Other [employer] Other 12-27-2022 11:45-0500Body mass index (BMI) [Ratio] 36.63 kg/x2Lvnujup Scally Other [employer] Other 12-27-2022 11:45-0500Body brxaki14.8 kgDeborah Scally Other [employer] Other 12-27-2022 11:45-0500Diastolic blood akwqfrwq27 mm[Hg] Gayathri Scally Other [employer] Other 12-27-2022 11:45-0500Respiratory rate18 /minDeborah Scally Other [employer] Other 12-27-2022 11:45-4662ZbI6% (BldA) [Mass fraction]97 % Gayathri Scally Other [employer] Other 12-27-2022 11:45-0500Systolic blood etxpmivt504 mm[Hg] Gayathri Scally Other [employer] Other 11-15-2022 11:45-0500Body migfml792.02 cmDeborah Scally Other [employer] Other 11-15-2022 11:45-0500Body mass index (BMI) [Ratio] 39.37 kg/o1Febntim Scally Other [employer] Other 11-15-2022 11:45-0500Body .84 kgDeborah Scally Other [employer] Other 11-15-2022 11:45-0500Diastolic blood zkewaetr12 mm[Hg] Gaytahri Brooklynly Other [employer] Other 11-15-2022 11:45-0500Respiratory rate18 /minDeborah Scally Other [employer] Other 11-15-2022 11:45-7464EyO0% (BldA) [Mass fraction]97 % Gayathri Brooklynly Other [employer] Other 11-15-2022 11:45-0500Systolic blood nljkunlf080 mm[Hg] Gayathri Scally Other [employer] Other 10-05-2022 12:00-0400Body otuqpx113.02 cmDereynaldo Adams Other [employer] Other 10-05-2022 12:00-0400Body mass index (BMI) [Ratio] 39.73 kg/k7Hajhbajreynaldo Barahonaly Other [employer] Other 10-05-2022 12:00-0400Body .74 kgDereynaldo Barahonaly Other [employer] Other 10-05-2022 12:00-0400Diastolic blood fdfnomkp93 mm[Hg] Gayathri Scally Other [employer] Other 10-05-2022 12:00-0400Respiratory rate18 /minDeborah Scally Other [employer] Other 10-05-2022 12:00-5062CwS4% (BldA) [Mass fraction]95 % Gayathri Adams Other [employer] Other 10-05-2022 12:00-0400Systolic blood hpooajwh534 mm[Hg] Gayathri Adams Other [employer] Other 08-30-2022 11:30-0400Body asjtun393.02 cmCchristiano Blank Other [employer] Other 08-30-2022 11:30-0400Body mass index (BMI) [Ratio] 38.61 kg/u4CxlfafaYo Blank Other [employer] Other 08-30-2022 11:30-0400Body .88 kgYo Trinidady Other [employer] Other 08-30-2022 11:30-0400Diastolic blood cczwoizh28 mm[Hg] Yo Saratty Other [employer] Other 08-30-2022 11:30-0400Systolic blood ivxrwxbo568 mm[Hg] Yo Ditty Other [employer] Other 08-23-2022 13:26-0400Body xbvihaidcfu43.2 [degF]Shawna Rumschlag DO Work Phone: bon [employer]08-23-2022 13:26-0400Diastolic blood qjmvxwox04 mm[Hg]Shawna Rumschlag DO Work Phone: [facility] [employer]08-23-2022 13:26-0400Heart rate85 /minBetty Rumschlag DO Work Phone: [facility]08-23-2022 13:26-0400 Respiratory rate16 /minBetty Rumschlag DO Work Phone: [facility]08-23-2022 13:26-0612OiI2% (BldA) [Mass fraction]94 %Shawna Rumschlag DO Work Phone: [facility]08-23-2022 13:26-0400Systolic blood sfutddob951 mm[Hg]Shawna Retaschlag DO Work Phone: [facility]08-12-2022 23:48-0400Body bjbilu786 cmaDniel Adkins MD Work Phone: [facility]-12-2022 23:48-0400Body mass index (BMI) [Ratio]36.67 kg/i0WajrdeDaniel Adkins MD Work Phone: [facility]08-12-2022 23:48-0400Body kcpmhkflbby11.6 [degF]Dnaiel Adkins MD Work Phone: [facility]08-12-2022 23:48-0400Body nulcvy15.89 kgDaniel Adkins MD Work Phone: [facility]08-12-2022 23:48-0400Diastolic blood avlwzifj14 mm[Hg]Daniel Adkins MD Work Phone: [phone]ENTERSunn[facility] [employer] [facility], [id number] 23:48-0400Heart rate97 /Maggie Adkins MD Work Phone: [phone]ERSunnyt[facility] [employer] [facility], [id number] 23:48-0400 Respiratory rate16 /Maggie Adkins MD Work Phone: [phone]ERSunn[facility] [employer] [facility], [id number] 23:48-8298UbK0% (BldA) [Mass fraction]96 %Daniel Adkins MD Work Phone: bon [employer]08-12-2022 23:48-0400Systolic blood jvnxonlz578 mm[Hg]Daniel Adkins MD Work Phone: [employer] Encounters Encounter DateEncounter TypeCare ProviderFacilityStart: 12-22-2024 End: 87-42-1028vzptmbwzfmIHCJITCDJCleveland Clinic Avon Hospitaltart: 12-20-2024 End: 47-29-3355Itdcolhxp encounterNomis Lopez CMAProMedica Physicians Plastic and Reconstructive SurgeryStart: 12-08-2024 End: 09-78-7448Mqrtickhl encounterDalljosr RowlandNorth Country HospitalMedica Physicians Surgical OncologyComment on above:Prior AuthorizationStart: 12-01-2024 End: 70-57-8965Khpdfubakari Zambrano MD Work Phone: noms Ni EndocrinologyStart: 12-01-2024 End: 69-94-1879Brhuajbakari Zambrano MD Work Phone: noms Ni EndocrinologyStart: 12-01-2024 End: 53-24-0622Esypqe outpatient visit 25 minutesCleo Zambrano MD Work Phone: noms Ni EndocrinologyComment on above:Type 2 diabetes mellitus with hyperglycemia, without long-term current use of insulin (HCC) (Primary Dx); Vitamin D deficiency; Weight gain; Encounter for dietary consultation; Hyperlipemia, mixed; Diabetes mellitus with complication (HCC); HypoglycemiaStart: 12-01-2024 End: 66-62-1738oneblncsipSZSDM F SABBAGHNot AvailableStart: 11-23-2024 End: 24-82-4333dfwggteoxeDBONFPACMGN [facility] Start: 11-23-2024 End: 04-29-4847Tfpavhnmv for other preprocedural examinationCHRISTOPHER [facility] Easttart: 11-21-2024 End: 47-04-9840Eogjlc Jean Paul Zambrano MD Work Phone: noms Ni EndocrinologyComment on above:Type 2 diabetes mellitus without complication, unspecified whether residential insulin use (HCC) (Primary Dx)Start: 11-17-2024 End: 41-81-3133Kunduepps department patient visitBenja Walker MD Work Phone: [facility] Emergency DepartmentComment on above: Flank pain (Primary Dx); Right lower quadrant abdominal painStart: 11-17-2024 End: 33-49-4159dmvmwnbehvPOTZ J BERKOWITZFacility:[facility] Start: 11-17-2024 End: 75-99-4969srtvvsthnuDgoleuznkTayler Mcneal APRN Work Phone: [facility] Work Phone: Start: 11-17-2024 End: 56-25-8656Yjchnoz encounter Shea Lang APRNCoxhealth Work Phone: Start: 11-16-2024 End: 91-25-6777Zopzkcuyr encounterCleo Zambrano MD Work Phone: noms Ni EndocrinologyComment on above:Med Refill Start: 11-15-2024 End: 94-36-4360wztohdavtzDQQFFXSylvester Ponce [facility] HospitalStart: 11-15-2024 End: 54-03-7365Txfjdekzji hospital visit by physicianMartir Stovall MD Work Phone: mthz ORComment on above:Ureteral stone with hydronephrosisStart: 11-15-2024 End: 82-71-5714Uknexjqhb encounterDwayne Khoury MD Work Phone: [facility] Reconstructive SurgeryStart: 11-15-2024 End: 14-21-0762imgbxwxkffPJEAUZURGCherrie Armenta [facility] HospitalStart: 03-77-8928Goxjdkgsa for other preprocedural examinationDAVIE Armenta [facility] HospitalStart: 11-15-2024 End: 93-06-9776Qbinbdb encounter statusMohawk Valley Health System ScheduleBon [facility] Start: 11-15-2024 End: 55-69-0796Fehjxnevcc hospital visit by physicianMohawk [facility] E[facility]GL[facility] Comment on above:Pre-op testingStart: 11-14-2024 End: 88-26-1504pnikywytuxLZGD D DORKOSKIEMercy [place] HospitalStart: 11-14-2024 End: 49-92-9724Eqtyqmpawu hospital visit by physicianEdgewood State Hospital [address] [place] [address] LABComment on above:Gross hematuria; Renal colicStart: 11-11-2024 End: 28-88-3587Rqrhrz outpatient visit 15 minutesShira Cardoso DO Work Phone: NO Ni OtolaryngologyComment on above: Obstructive sleep apnea (Primary Dx); Class 3 severe obesity with serious comorbidity and body mass index (BMI) of 40.0 to 44.9 in adult,unspecified obesity type ([facility]-HCC); Intolerance of continuous positive airway pressure (CPAP) ventilationStart: 11-11-2024 End: 41-21-8329Uumzlp flowsheetShira S Biarianna DO Work Phone: NO Ni OtolaryngologyStart: 11-11-2024 End: 69-77-5646Ambxym flowsheetPaul S Biedenbach DO Work Phone: noMO [place] OtolaryngologyStart: 11-11-2024 End: 66-17-1235Gwwtfmrll encounterKeri Carrillo Physicians Plastic and Reconstructive SurgeryStart: 11-11-2024 End: 45-58-0726hoyoemmqsuVQAL S BIEDENBACHNot AvailableStart: 11-07-2024 End: 07-28-7355vqghdnkfawHTLDGXOHFCherrie Armenta [place] HospitalStart: 11-07-2024 End: 20-28-2508Gktorhbfma hospital visit by physicianEdgewood [facility] Xr [address] [place] [address] RadiologyComment on above:Renal calculusStart: 11-03-2024 End: 46-54-6434mnqrccntijDlbgqbtfb Rena Mcneal APRN Work Phone: [facility] Work Phone: Start: 11-03-2024 End: 97-55-6317Ymgfgqo encounter procedureNicole J Danielle DO-FPG Neurology [place] Work Phone: Start: 11-02-2024 End: 68-40-5772Reeaud flowsheetCorey Shirlene DO Work Phone: [facility] [place] OBGYNStart: 11-02-2024 End: 85-70-1439Pvqind flowsheetCorey Shirlene DO Work Phone: [facility] [place] OBGYNStart: 11-02-2024 End: 13-42-9112vqgntecxffOJDQW FAZIONot AvailableStart: 11-02-2024 End: 67-09-9405Usfzun outpatient visit 15 minutesCorey Shirlene DO Work Phone: [facility] [place] OBGYNComment on above:Osteopenia, unspecified location (Primary Dx); Other osteoporosis without current pathological fracture ; Other iron deficiency anemiaStart: 10-19-2024 End: 66-61-3138qoeqpiswqzRyaybwa Gio Ingram MDFacility:[facility] Hospitaltart: 10-03-2024 End: 75-16-0377Aooatjdir encounterCleo Zambrano MD Work Phone: [facility] [place] EndocrinologyComment on above:Med Refill Start: 09-29-2024 End: 34-71-0140Bmcfii flowsheetPaul S Biedenbach DO Work Phone: noms [place] OtolaryngologyStart: 09-29-2024 End: 36-05-5103Imosdj flowsheetPaul S Biedenbach DO Work Phone: noms Ni OtolaryngologyStart: 09-29-2024 End: 78-39-4986dwgmxzzcomTWWV S BIEDENBACHNot AvailableStart: 09-29-2024 End: 56-66-3532Ginpyl follow up visit related to original pxPahawa S Biedenbach DO Work Phone: noms Ni OtolaryngologyComment on above: Obstructive sleep apnea (Primary Dx)Start: 09-21-2024 End: 43-62-9037Tconphft Result EncounterPaul S Biedenbach DO Work Phone: noms External Department UnsolicitedStart: 09-21-2024 End: 89-52-2762Ghxxqmeu Result EncounterPaul S Biedenbach DO Work Phone: noms External Department UnsolicitedStart: 09-21-2024 End: 95-09-6900Yjjbomxro to same day surgery centerPahawa Samedenlorrie DO-[facility] CampusStart: 09-21-2024 End: 57-31-4831ydsceakiieKssucdozeTayler Mcneal APRN Work Phone: [facility] Work Phone: Start: 09-20-2024 End: 53-30-4596Fzafql flowsheetPahawa S Biedenbach DO Work Phone: noms ENT NORWALKStart: 09-20-2024 End: 40-52-7172Amghuh flowsheetPaul S Biedenbach DO Work Phone: noms ENT NORWALKStart: 09-20-2024 End: 84-01-5302lbwkxgjdpmGBGI S BIEDENBACHNot AvailableStart: 09-20-2024 End: 88-16-0673Zxmopm follow up visit related to original pxShira S Biedenbach DO Work Phone: noms ENT Maite on above:Obstructive sleep apnea (Primary Dx); Class 3 severe obesity with serious comorbidity and body mass index (BMI) of 40.0 to 44.9 in adult,unspecified obesity type ([facility]-HCC); Breakdown (mechanical) of implanted electronic neurostimulator, generator, sequelaStart: 09-06-2024 End: 24-27-7274Dwjycnaku encounterKrurban Khoury MD Work Phone: [facility] SurgeryStart: 09-01-2024 End: 00-02-4872Troudp flowsheetPaul S Biedenbach DO Work Phone: noms ENT SANDUSKYStart: 09-01-2024 End: 85-15-1011Ayiucu flowsheetPaul S Biedenbach DO Work Phone: noms ENT SANDUSKYStart: 09-01-2024 End: 95-20-4491txysiovattIJYL S BIEDENBACHNot AvailableStart: 09-01-2024 End: 71-57-1000Kpsydo follow up visit related to original pxPaul S Biedenbach DO Work Phone: noms ENT SANDUSKYComment on above:Obstructive sleep apnea (Primary Dx)Start: 08-19-2024 End: 75-92-4778Lcrzss flowsheetPaul S Biedenbach DO Work Phone: noms ENT SANDUSKYStart: 08-19-2024 End: 59-09-8015Esxwvn flowsheetPaul S Biedenbach DO Work Phone: noms ENT SANDUSKYStart: 08-19-2024 End: 94-37-3676qktugbnladHIXO S BIEDENBACHNot AvailableStart: 08-19-2024 End: 48-47-0026Eaxdtl follow up visit related to original pxPaul S Biedenbach DO Work Phone: noms ENT SANDUSKYComment on above:Obstructive sleep apnea (Primary Dx); Intolerance of continuous positive airway pressure (CPAP) ventilationStart: 08-18-2024 End: 80-39-6462Gydgpmttgj and management of inpatientMICHAEL R TREMAINSProMedica St. Mary's Medical Centertart: 08-10-2024 End: 42-93-7305Bemhjbza Result EncounterPaul S Biedenbach DO Work Phone: noms External Department UnsolicitedStart: 08-10-2024 End: 84-61-9530Cqyofxnk Result EncounterShira Cardoso DO Work Phone: noms External Department UnsolicitedStart: 08-10-2024 End: 16-15-6600Ifrrsyobj to same day surgery Damian Mcneal SECURITIES UNDERWRITER Work Phone: [facility] Main CampusStart: 08-10-2024 End: 52-82-8557edlvkrmhakApfujlxuo K Myjulietaholbrayan SECURITIES UNDERWRITER Work Phone: [facility] Work Phone: Start: 08-08-2024 End: 68-04-0123umvpmhrytpMmzqohysv K Myerholtz SECURITIES UNDERWRITER Work Phone: [facility] Work Phone: Start: 08-08-2024 End: 71-41-2175Jhsyfwd encounter procedureDavie Mcneal SECURITIES UNDERWRITER Work Phone: [facility] Work Phone: Start: 08-04-2024 End: 97-51-5929Pfzxab Julio Zambrano MD Work Phone: noms ENDOCRINOLOGYStart: 08-04-2024 End: 12-61-6670Ynkrdtseb Zambrano MD Work Phone: noms ENDOCRINOLOGYStart: 08-04-2024 End: 94-94-1488rglvrzscuyHGZKQLeticia Cai AvailableStart: 08-04-2024 End: 79-49-9672Dncxix outpatient visit 25 minutesCleo Zambrano MD Work Phone: noms ENDOCRINOLOGYComment on above:Type 2 diabetes mellitus without complication, 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); Vitamin D deficiency; Weight gain; Encounter for dietary consultation; Hyperlipemia, mixed (CMS/HCC); Class 3 severe obesity due to excess calories without serious comorbidity with body mass index (BMI) of 40.0 to 44.9 in adultStart: 08-02-2024 End: 41-68-5312Xkfobn flowsheetCorey Shirlene DO Work Phone: noms BCP OBStart: 08-02-2024 End: 64-10-5371Mhjoqz flowsheetCorey Shirlene DO Work Phone: noms BCP OBStart: 08-02-2024 End: 28-65-1359jokrwlnjmyJLEUG FAZIONot AvailableStart: 08-02-2024 End: 65-73-2535Euojkz outpatient visit 15 minutesCorey Shirlene DO Work Phone: noms BCP OBComment on above:Itching with irritation; Nexplanon removalStart: 07-27-2024 End: 77-38-6864Lhuafvs encounter procedureDavie Mcneal APRN Work Phone: [facility] Qoj-Vpk-Xvqwojnm Testing Work Phone: Start: 07-27-2024 End: 67-50-6599gwbdxhohmlBobooyboo K Myerholtz APRN Work Phone: [facility] Work Phone: Start: 07-20-2024 End: 03-95-6546Aaroioysn encounterCleo Zambrano MD Work Phone: noms ENDOCRINOLOGYComment on above:Advice Only Start: 07-16-2024 End: 90-34-1776Hwyofbhka department patient visitDAVIE [place] Emergency DepartmentComment on above:Post-traumatic osteoarthritis of left ankle (Primary Dx); Midline low back pain without sciatica, unspecified chronicityStart: 06-30-2024 End: 01-80-2913Rbfzcfw encounter procedureCorey Shirlene DO Work Phone: noms BCP OBComment on above:Nexplanon removalStart: 06-30-2024 End: 54-82-7421ydgisvzepxCHULO FAZIONot AvailableStart: 06-27-2024 End: 01-48-8231dlewgvnptcUlltqpf Vytautas Giedraitis MDFacility:TRACIE Mendoza Start: 06-20-2024 End: 16-66-7675ockhfmambqWFWZQWZA [facility] Start: 06-13-2024 End: 42-45-0587Sstsja flowsheetPaul S Biedenbach DO Work Phone: noms ENT SANDUSKYStart: 06-13-2024 End: 48-29-2858Rovqbs flowsheetPaul S Biedenbach DO Work Phone: noms ENT SANDUSKYStart: 06-13-2024 End: 14-65-5455Ucomat outpatient visit 15 minutesPaul S Biedenbach DO Work Phone: noms ENT SANDUSKYComment on above:Obstructive sleep apnea (Primary Dx); Intolerance of continuous positive airway pressure (CPAP) ventilation; Class 3 severe obesity with serious comorbidity and body mass index (BMI) of 40.0 to 44.9 in adult,unspecified obesity typeStart: 06-13-2024 End: 26-65-4479kwjudlfoydBNDU S BIEDENBACHNot AvailableStart: 06-02-2024 End: 20-53-7394olzwnkaglqWjbig T Shammo GIRL FRIDAY-BC Work Phone: [facility] Work Phone: Start: 06-02-2024 End: 76-31-8859Awwffmi encounter procedureLucas Shammo GIRL FRIDAY-BC Work Phone: [facility] Work Phone: Start: 05-27-2024 End: 20-60-1576Gvgwvmyed Result EncounterCorey Shirlene DO Work Phone: noms External Department UnsolicitedStart: 05-27-2024 End: 51-11-5474Isefrpfea Result EncounterCorey Shirlene DO Work Phone: noms External Department UnsolicitedStart: 05-26-2024 End: 84-30-3516Jneujiump Result EncounterCorey Shirlene DO Work Phone: noms External Department UnsolicitedStart: 05-26-2024 End: 74-11-2618Dgoemloek Result EncounterCorey Shirlene DO Work Phone: noms External Department UnsolicitedStart: 05-26-2024 End: 33-37-3703Cqjmrzi encounter procedureCorey Shirlene DO Work Phone: noms HealthcareStart: 05-26-2024 End: 18-98-7919Frkzisvx preventive med est patient 40-64yrsCorey Shirlene DO Work Phone: noms BCP OBComment on above:Well woman exam with routine gynecological exam; Breast cancer screening by mammogramStart: 05-26-2024 End: 04-79-8949knbycvahaxOHRTL FAZIONot AvailableStart: 05-10-2024 End: 36-23-7983mxhaqdibyqEDVCAL DANNERNot AvailableStart: 05-09-2024 End: 83-52-0341eqfjpbwmkbUrbrmql Vytautas Giedraitis MDFacility:PM [place] Start: 04-28-2024 End: 56-89-3556Embjgl outpatient visit 25 minutesPaul Brandyn Cardoso DO Work Phone: noms ENT SANDUSKYComment on above:Obstructive sleep apnea (Primary Dx); Intolerance of continuous positive airway pressure (CPAP) ventilation; Body mass index 34.0-34.9, adultStart: 04-28-2024 End: 78-47-5600ynmorcxflbYPQH S BIEDENBACHNot AvailableStart: 04-25-2024 End: 31-79-7611Jzosdr Lucas Neville JACK STRIP ASSEMBLER Work Phone: aNA SANDUSKYStart: 04-25-2024 End: 52-35-1511Uywaco Lucas Neville JACK STRIP ASSEMBLER Work Phone: ana SANDUSKYStart: 04-18-2024 End: 77-12-5608Swixsu flowsheetCorey Shirlene DO Work Phone: noms BCP OBStart: 04-18-2024 End: 68-72-3026Pwlvra flowsheetCorey Shirlene DO Work Phone: noms BCP OBStart: 04-18-2024 End: 09-98-9378Didmkixtv Result EncounterCorey Shirlene DO Work Phone: noms External Department UnsolicitedStart: 04-18-2024 End: 04-22-4171mbgqqojhvsZXGBD FAZIONot AvailableStart: 04-18-2024 End: 66-06-1870Fwniee outpatient visit 15 minutesCorey Shirlene DO Work Phone: noms BCP OBComment on above:Hormone imbalance; Hormone disorder; Toenail fungusStart: 04-13-2024 End: 91-67-0428Hjoohixav encounterCleo Zambrano MD Work Phone: noMS ENDOCRINOLOGYComment on above:Prior AuthorizationStart: 04-07-2024 End: 52-55-7480Cupzxmseb Zambrano MD Work Phone: NOMS ENDOCRINOLOGYStart: 04-07-2024 End: 94-32-9422Fzkyiiseb Zambrano MD Work Phone: noMS ENDOCRINOLOGYStart: 04-07-2024 End: 34-74-4081brybtzfvanKPDJG F SABBAGHNot AvailableStart: 04-07-2024 End: 18-30-3642Isvxiu outpatient visit 25 minutesCleo Zambrano MD Work Phone: noMS ENDOCRINOLOGYComment on above:Type 2 diabetes mellitus without complication, 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 (CMS/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) (Primary Dx); Vitamin D deficiency; Weight gain; Encounter for dietary consultation; Hyperlipemia, mixed (CMS/HCC); Class 2 severe obesity due to excess calories with serious comorbidity and body mass index (BMI) of39.0 to 39.9 in adult ([facility]/HCC)Start: 59-24-8906Ijh-patient / Non-visitLucjosr Beebemo GIRL FRIDAY-BC Work Phone: [facility] Work Phone: Start: 03-09-2024 End: 61-02-4331hrcyxzqaejTvrxh T Shammo GIRL FRIDAY-BC Work Phone: [facility] Work Phone: Start: 03-09-2024 End: 08-72-3414Usknouru ReferredLucas Shammo GIRL FRIDAY-BC Work Phone: [facility] C[facility]-LAB Path Spec [place] HospStart: 02-29-2024 End: 41-80-1866TigebaAndxee H Timmis MD Work Phone: noms CI ENTComment on above:Chronic rhinitisStart: 02-16-2024 End: 31-36-7596Jaoihpcja encounterCleo Zambrano MD Work Phone: NOSN SH ENDOCRINOLOGYComment on above:Medication ProblemStart: 02-09-2024 End: 27-65-9059Erszidcmpw hospital visit by Malgorzata Olmstead PTMROSALVA Physical TherapyStart: 83-29-0823olyhccbcfwYQCIP RUMSCHLAGMercy Kansas HospitalStart: 02-01-2024 End: 21-33-2379ppcunvdjmfHjlbenc Arlyn Bourgeois MDFacility:[facility] Start: 01-26-2024 End: 85-85-0167whmubwqkemTHGNK RUMSCHLAGMercy Kansas HospitalStart: 01-26-2024 End: 74-28-9808Iwcpuvmqxt hospital visit by physicianTamar RENDON Physical TherapyComment on above:ArrivedStart: 01-21-2024 End: 07-05-3330Wlzkzto encounter procedureLucas Shammo GIRL FRIDAY-BC Work Phone: [facility] Work Phone: Start: 01-13-2024 End: 40-92-1008Fexqgbwcn department patient visitTirso Junior DO Work Phone: [facility] EDComment on above:Dizziness (Primary Dx)Start: 01-11-2024 End: 96-38-0509hlmjvwhaoxGburgbq Vytautas Giedraitis MDFacility:PM [place] Start: 12-29-2023 End: 45-36-1560Wuiartocey hospital visit by Lynnette PILLAIDong Physical TherapyStart: 12-21-2023 End: 28-30-4462lbvpaojtynHYMUUKGUNC Health [facility] HospitalStart: 11-30-2023 End: 39-59-2970Qaqcif flowsheetAngela Tjr [employer] Work Phone: [facility]Start: 11-30-2023 End: 49-05-9412Lzhccp flowsheetAngela Ana Maríamor [employer] Work Phone: [facility]Start: 11-30-2023 End: 93-38-5307Rmawtdzux encounterAngela Tjr [employer] Work Phone: no[facility]Start: 11-30-2023 End: 63-26-1151Akkjty outpatient visit 25 minutesAngemakenna Neville [employer] Work Phone: [facility]TEComment on above:JADON (obstructive sleep apnea) (Primary Dx); Tension headache; Chronic bilateral low back pain, unspecified whether sciatica present; ParesthesiasStart: 11-17-2023 End: 95-23-2822Mgwyhreygu hospital visit by Lynnette Silveira [facility]ITALDong Physical TherapyComment on above:ArrivedStart: 11-16-2023 End: 35-29-5575tbpvdxrahrYuikurm Vytautas Giedraitis MDFacility:[facility] [place] Start: 10-20-2023 End: 27-66-8517Dposvdjepa hospital visit by Malgorzata Olmstead [facility]PITALDong Physical TherapyComment on above:ArrivedStart: 10-08-2023 End: 70-79-2679Zgocxq outpatient new 30 minutesKristoffer Osito Khoury MD Work Phone: [facility] Phys[facility] Plastic and Reconstructive SurgeryComment on above:Macromastia (Primary Dx)Start: 10-08-2023 End: 22-93-9986sslnuahloaQNAIBRNPTS OSITO [facility] HospitalStart: 10-05-2023 End: 03-57-9993Usqhthuwt department patient visitCOMCRITICAL ACCESS HOSPITAL HEALTH SERVICES [facility] HospitalStart: 09-22-2023 End: 64-12-3902Kludddbair hospital visit by Malgorzata Olmstead PTMROSALVA Physical TherapyStart: 09-08-2023 End: 38-48-6233Budqwklum encounterArgenis Storm RNFostoria Pain ClinicComment on above:Med RefillStart: 08-26-2023 End: 57-07-9997Jhfbjqynic hospital visit by Salma Villegas PTMDong Physical TherapyComment on above:ArrivedStart: 08-21-2023 End: 71-92-8692Krluackznx hospital visit by Malgorzata RENDON Physical TherapyComment on above:ArrivedStart: 08-19-2023 End: 60-20-4131Ewcaefpkn encounterStaceyuliya Olea [facility] - Pain Management ClinicStart: 08-11-2023 End: 44-35-0620Bpdcyxbpvs hospital visit by Malgorzata Olmstead PTMROSALVA Physical TherapyComment on above:ArrivedStart: 07-14-2023 End: 25-03-2975Muydddwcoh hospital visit by Richard Skinner PTMTHDong Physical TherapyStart: 07-07-2023 End: 97-82-5129Hyjrmabye encounterMaty Fulton [facility] - Pain Management ClinicStart: 49-04-5377yywuqqpeptAARSY K RUMSCHLAG [facility] Ambulatory PPGStart: 06-02-2023 End: 91-74-8826Syioed outpatient new 30 minutesDeepika Cox MD Work Phone: [facility] Physicians Surgical OncologyComment on above:Mass of upper outer quadrant of right breast (Primary Dx); Abnormal mammogram; Symptomatic mammary hypertrophyStart: 06-02-2023 End: 89-00-1566rgpesrpnbgXPHJQEVS A KULICKProMedica Kindred Healthcaretart: 90-38-2128Dkxfirf encounter procedureBrittany Neville NP Work Phone: [facility] HealthcareStart: 05-21-2023 End: 49-18-8540Dqqgiib encounter procedureUn[facility] Gastroenterology Work Phone: Start: 05-21-2023 End: 94-61-7836Ezgfwgv encounter procedureUn[facility] Work Phone: Start: 14-83-2630Rjhfnhpmy encounterDeepika Cox MD Work Phone: [facility] Physicians Surgical OncologyStart: 05-06-2023 End: 49-40-6450Gwvhdtgkxs hospital visit by Sally Altamirano PTAMTHZ Physical TherapyComment on above:ArrivedStart: 03-22-5283WmmvoxUcjy Reyna RN [facility] - Pain Management ClinicStart: 04-28-2023 End: 54-06-6268lsmpbprbqfUWKWWGB S NIENBERGUniversity Hospitals [facility] HospitalStart: 04-28-2023 End: 55-93-4701Pyqiis outpatient visit [address] [place], [place] [address]melissa CALVO Work Phone: [facility] - Pain Management ClinicComment on above:Lumbosacral spondylosis without myelopathy (Primary Dx) Start: 04-20-2023 End: 29-17-6751Kfwlpuctk department patient visitBelaurence Mcfadden DO Work Phone: [facility] EDComment on above:Closed head injury, initial encounter (Primary Dx); Fall due to slipping on ice or snow, initial encounter; Acute cervical myofascial strain, initial encounterStart: 24-63-0470Kimvnf Patricia [facility] - Pain Management ClinicStart: 03-27-2023 End: 45-51-6190sprrkssyusQILBCDU E HOGJAYLEENProTrumbull Regional Medical Center HospitalStart: 03-18-2023 End: 64-20-4652sjspwuoguiOavd Scovanner Other noIpropertyz Other Start: 05-62-1711Tbctncina encounterRyan ScovannerFPG GastroenterologyStart: 60-18-9883Dut-patient / Non-visitMD Yo Ruizlaurence Work Phone: [facility] Gastroenterology Work Phone: Start: 03-17-2023 End: 71-61-1560pjccclzqhbGpeh Billovanjillian Other [employer] deskwolf Other Start: 37-08-6390Zlybssdkh encounterRyan ScovannerFPG GastroenterologyStart: 42-32-3168Hkxicrfsz for general adult medical examination without abnormal findingsCOMMUNITY SERVICESSelect Medical Specialty Hospital - Columbustart: 03-16-2023 End: 88-73-3908uhcfrcixihHMGKS SHAMMOSelect Medical Specialty Hospital - Columbustart: 03-10-2023 End: 49-83-6355Gekqebkntl hospital visit by physicianTamar Silveira PTMTHZ Physical TherapyComment on above:ArrivedStart: 03-05-2023(FCCCWMNF/U) Weight Management f/Brayan Reyes [facility] ClinicStart: 03-05-2023 End: 08-34-2829uneorgwzjdBoaagcf Scally Other [facility] deskwolf Other Start: 57-85-9446Ulntrtiupk RecurringMD Yo Blank Work Phone: [facility] CenterSpreadShoutSamaritan North Health Center-Weight Management Work Phone: Start: 03-02-2023 End: 90-87-3747Pbovwepoy department patient visitSil Sullivan DO Work Phone: [facility] EDComment on above:Constipation, unspecified constipation type (Primary Dx)Start: 02-26-2023 End: 77-88-6007kiqjvaxjtbUlaw Scovanner Other noIpropertyz Other Start: 65-67-0796Vxrbzdvfl encounterRyan ScovannerKALIAG GastroenterologyStart: 74-41-9655Cdobjkapg encounterTonya Emrich RNFostoria Pain ClinicComment on above:Medication, DMEStart: 02-18-2023 End: 23-08-7500mqmxnakvwcSrds Scovanner Other noIpropertyz Other Start: 01-26-2986Oxilndexk encounterRyan ScovannerKALIAG GastroenterologyStart: 53-62-6663Vmwylxmok encounterStacey Lefty [facility] - Pain Management ClinicStart: 02-05-2023 End: 27-74-7496fvdddwlckwVbvu Scovanner Other noIpropertyz Other Start: 93-90-7385Eigdey outpatient visit 15 minutes Jan Padilla GastroenterologyStart: 01-15-2023(FCCCWMNF/U) Weight Management f/uDeborakasia Reyes [facility] Care ClinicStart: 01-15-2023 End: 98-07-9587jrjteufclrXpkgpjp Scally Other [employer]property[employer] Other Start: 01-07-2023 End: 76-31-3781skyxygmzcbQplq Scovanner Other [employer] Other Start: 29-43-5726Pjrhpo outpatient visit 15 minutes Jan Padilla GastroenterologyStart: 09-25-2022 End: 60-77-3700jmacpcizxgUTJ YUE GRANADOFacility:FTMCStart: 09-25-2022 End: 11-36-3224LkjzsgaxwWLLY Kerlien Deep [facility] Start: 09-17-2022 End: 65-17-8073fnadwbutlwDisyzzy Scally Other [employer]propertyz Other Start: 55-82-5582Mfyqaiyff encounterGayathri Adams [facility] Coordinated Care ClinicStart: 08-28-2022([facility] RD FU) [facility] F/U Registerd DieticianDawsruthi FitPeace Harbor Hospital Coordinated Care ClinicStart: 08-28-2022 End: 21-94-1049trxmhyufabTxlx Fitt Other noIpropertyz Other Start: 07-29-2022([facility]/U) Weight Management f/u Gayathri ScallyFirelands Coordinated Care ClinicStart: 07-29-2022 End: 01-36-2244yyxlzaenmtHuzuagr Scally Other [employer] Other Start: 05-20-2022([facility]/U) Weight Management f/u Gayathri ScallyFirelands Coordinated Care ClinicStart: 05-20-2022 End: 51-09-8566gmhudghpbcVvoehiv Brooklynly Other no[employer]propertyz Other Start: 05-19-2022 End: 39-75-7798vbytripyumPS ROEL GARBER .Facility:E1Etxal: 05-07-2022 End: 45-12-2068eulnkfldymSU DOCTOR MISCFacility:X8Qucaw: 04-09-2022 End: 20-91-6038aixrilmdejHckcqsz Scally Other [employer] Other Start: 20-26-1099Hvofyzyim encounterGayathri Adams [facility] Care ClinicStart: 04-08-2022([facility] WMNI) WMN Initial ProviderDawn [facility] Coordinated Care ClinicStart: 04-08-2022([facility]/U) Weight Management f/uDeborah ScallyFirelands Coordinated Care ClinicStart: 04-08-2022 End: 72-17-4340merhcckwzbTdtg Fitt Other [employer]property[employer] Other Start: 02-26-2022 End: 08-04-0135ksfccbkoihQpxe Fitt Other [employer]property[employer] Other Start: 80-44-4786[employer] 2-10 30MDawn [facility] Coordinated Care ClinicStart: 02-25-2022([facility]MNF/U) Weight Management f/uDeborah ScallyFirelands Coordinated Care ClinicStart: 02-25-2022 End: 80-19-1950llyopuegtaNkjzdeh Brooklynly Other [employer] deskwolf Other Start: 02-17-2022 End: 13-04-2408ribqqokhznAKAZK SHAMMOFacility:F2Vybgd: 01-29-2022 End: 34-35-7606omloursnodJHPHX D HIGHLANDERFacility:O9Gvusq: 01-14-2022 ([facility]ITAL[facility]/U) Weight Management f/uDeborah ScallyFirelands Coordinated Care ClinicStart: 01-14-2022 End: 26-51-2705wyrojtnzunGftbbxf Scally Other [employer] Other Start: 12-05-2021 End: 11-22-6790oxjjwqabvgYnrwyxr Scally Other [employer] Other Start: 89-05-5191Iaqbppcbg encounterBradley Hospital Coordinated Care ClinicStart: 12-04-2021 End: 61-37-6613btrnbdoeqgWidzxtx Angie Other [facility] deskwolf Other Start: 27-95-5185Qwyzjokfj therapyDeJohn E. F[facility] Coordinated Care ClinicStart: 10-29-2021 End: 36-18-6351baglndzffqMwvznem Ditty Other [facility] deskwolf Other Start: 12-25-7542Cphlisx encounter procedureCamsilvia BlankFPG GastroenterologyStart: 10-22-2021 End: 40-06-9494Ngabapsnn department patient visitWilburlaurence Retanovant health [facility] DO Work Phone: [facility] EDComment on above:Acute diffuse otitis externa of left ear (Primary Dx)Start: 10-11-2021 End: 52-72-5898Qkwarqrim department patient visitDaniel Adkins MD Work Phone: [facility] EDComment on above:Pilonidal cyst (Primary Dx)Start: 11-21-2016 End: 82-04-9358XeehdigsigJmhfuqe WiecekFacility:[facility] Procedures DateProcedureProcedure DetailPerforming ClinicianStart: 12-01-2024 End: 30-73-7949Xgft bld gluc mntr dev cleared fda spec home useCleo Zambrano MD Work Phone: Start: 76-61-0584Qr abdomen & pelvis w/contrast Sharlene Walker MD Work Phone: Start: 39-19-1704Eekhr wrist complete minimum 3 views Benja Walker MD Work Phone: Start: 11-03-0925Iocjndfstm microscopic onlyBenja Walker MD Work Phone: Start: 71-36-1957Qmjwn dip stick/tablet rgnt auto w/o microscopyBenja Walker MD Work Phone: Start: 50-56-4042Bdeyy metabolic panel calcium total Benja Walker MD Work Phone: Start: 86-46-8974Lqwelhd function panelBenja Walker MD Work Phone: Start: 21-38-1902Vusmqllelqf during operationThaugusto Stovall MD Work Phone: Start: 36-69-8497QQVOKNA, WHOLE BLOODMartir Stovall MD Work Phone: Start: 35-59-4284LBBHVEH, WHOLE BLOODMartir Stovall MD Work Phone: Start: 86-08-6068Pdi routine ecg w/least 12 lds w/i&r Lucas W Juanell SECURITIES UNDERWRITER - FELT CHECKER Work Phone: start: 67-40-1160Cvcec metabolic panel calcium total Ruddy D Erik PA-C Work Phone: Start: 80-57-4219Ykefl dip stick/tablet reagent auto microscopyKyle D Erik PA-C Work Phone: Start: 24-34-1387Jb abdomen & pelvis w/o contrast materialKyle D Erik PA-C Work Phone: Start: 04-94-9587Llgpgvntsinmsnsl of cranial nerve Davie Mcnela SECURITIES UNDERWRITER Work Phone: Start: 16-49-9853PGMRZXV POCT GLUCOMETERSPaul S Biedenbach DO Work Phone: start: 73-78-1227QYYRPDV POCT GLUCOMETERSPaul S Biedenbach DO Work Phone: start: 04-91-9342Cpqmf chest X-rayDavie Mcneal SECURITIES UNDERWRITER Work Phone: Start: 36-51-7565Knvwxjnrbpyahnbw of cranial nerve Davie Mcneal SECURITIES UNDERWRITER Work Phone: Start: 71-38-9694WBULISA POCT GLUCOMETERSPahawa Cardoso DO Work Phone: start: 90-02-8455Gxct bld gluc mntr dev cleared fda spec home useCleo Zambrano MD Work Phone: Start: 03-67-3174Yxdpk dip stick/tablet reagent auto microscopyToSt. Josephs Area Health Services [employer] Work Phone: Start: 07-16-2024 End: 21-56-1426Yunld spine lumbosacral 2/3 viewsToSt. Josephs Area Health Services [employer] Work Phone: Start: 31-07-8638BSM INSERTION/REMOVAL OF CONTRACEPTIVE CAPSULECorey Shirlene DO Work Phone: Start: 39-48-6118UA TOMOSYNTHESIS SCREENING BICorey Shirlene DO Work Phone: Start: 57-62-0996UoydmlosrcvVmtdh Shirlene DO Work Phone: Start: 54-89-0613Gpdtd dip stick/tablet rgnt non-auto w/o micrscpCorey Shirlene DO Work Phone: Start: 65-80-7486WEN,APTIMA HPV,AGE GDLNCorey Shirlene DO Work Phone: Start: 92-11-6911GNG HEMOGLOBIN L5BYjmqr Shirlene DO Work Phone: Start: 26-38-1144Rtmn bld gluc mntr dev cleared fda spec home useCleo Zambrano MD Work Phone: Start: 97-11-0679Prxozxlugxspj pyogenes cultureLucas Shammo GIRL FRIDAY-BC Work Phone: Start: 21-10-4508Iiftmpfqjv microscopic onlyJaveria J Junior DO Work Phone: Start: 93-64-6451Fsnje dip stick/tablet rgnt auto w/o microscopyJaveria J Junior DO Work Phone: Start: 90-59-0403Dtr routine ecg w/least 12 lds w/i&r Tirso J Junior DO Work Phone: Start: 36-86-3942Bwxnjounjokhx metabolic panelJaveria J Junior DO Work Phone: Start: 88-24-5956Sknqqptdynu observation [Identifier] in Cervix by Cyto stainDeepika Cox MD Work Phone: Start: 24-98-2391Co cervical spine w/o contrast materialM Octavio Urbina SECURITIES UNDERWRITER - FELT CHECKER Work Phone: Start: 93-96-2633Yh head/brain w/o contrast materialM Octavio Urbina SECURITIES UNDERWRITER - FELT CHECKER Work Phone: Start: 92-07-0794NfgdstwcyywLfndty Gillmor JACK STRIP ASSEMBLER Work Phone: Start: 76-76-8254Tasrhtqsahsv [Mass/volume] in Urine by Test stripPatricia Clay RNStart: 94-53-3318Bldac depression screening assessmentArgenis Storm RNStart: 56-07-8234QkmbsbqwrcyvykqANSM PETERSStart: 71-89-3372qcgey surgeryYUE BeltransillectomyYUE GRANADO Plan of Treatment DateCare ActivityDetailAuthorStart: 07-50-6544TEyT,Tdap and Td Vaccines (2 - Td or Tdap)DTaP,Tdap and Td Vaccines (2 - Td or Tdap)[facility] SystemStart: 47-57-2803GAhS/Tdap/Td vaccine (2 - Td or Tdap)DTaP/Tdap/Td vaccine (2 - Td or Tdap)[facility] HealthStart: 78-75-7847Hzvkxnckx for malignant neoplasm of cervixNOMS HealthcareStart: 57-80-3605Bglemkwil for malignant neoplasm of cervixPap SmearNOMS HealthcareStart: 75-71-3461Oskdd BMI ScreeningAdult BMI ScreeningProMedica Health SystemStart: 08-18-2025 End: 28-55-8505Qdhkfbo encounter procedureNOMS ENT SANDUSKYStart: 08-18-2025 Tobacco ScreeningTobacco ScreeningPike Community Hospital SystemStart: 05-31-2025 End: 09-76-9295Zhamell encounter procedureNOMS BCP OBStart: 65-04-5554Ydrbockkk for malignant neoplasm of breastMammogramNOMO HealthcareStart: 04-06-2025 End: 55-86-0754Uunimon encounter hymnnsjsw26/05/2026 10:40 AM EST Office Visit [facility] [address] [place] [address] Cleo Zambrano MD [address] [place] [address] [facility]Brand[facility] EndocrinologyStart: 50-84-9499Qajubpmcg for malignant neoplasm of breastBreast cancer screenBON MERCY HEALTH WILLARD HOSPITALStart: 12-05-2024 End: 135365-vyuhrialyjkegy D3 [Mass/volume] in Serum or PlasmaVitamin D 25 hydroxy Total Lab Routine Type 2 diabetes mellitus with hyperglycemia, without long-term current use of insulin (HCC) Expected: 12/05/2024 (Approximate), Expires: 12/05/2025[facility] HealthcareComment on above:Expected: 12/05/2024 (Approximate), Expires: 12/05/2025Start: 12-05-2024 End: 56-54-9550D-peptideC-peptide Lab Routine Type 2 diabetes mellitus with hyperglycemia, without long-term current use ofinsulin (HCC) Expected: 12/05/2024 (Approximate), Expires: 12/05/2025[facility] Healthcare Work Phone: Comment on above:Expected: 12/05/2024 (Approximate), Expires: 12/05/2025Start: 12-05-2024 End: 53-57-9368Hzalp 1996 panel - Serum or PlasmaLipid panel Lab Routine Type 2 diabetes mellitus with hyperglycemia, without long-term current use of insulin (HCC) Expected: 12/05/2024 (Approximate), Expires: 12/05/2025[facility] Comment on above:Expected: 12/05/2024 (Approximate), Expires: 12/05/2025Start: 12-05-2024 End: 85-19-8025Pmibxhbcukxj/Creatinine panel in random UrineMicroalbumin / creatinine urine ratio Lab Routine Type 2 diabetes mellitus with hyperglycemia, without long-term current use of insulin (HCC) Expected: 12/05/2024 (Approximate), Expires: 12/05/2025[facility] HealthcareComment on above:Expected: 12/05/2024 (Approximate), Expires: 12/05/2025Start: 12-05-2024 End: 25-16-7798Yutui function panelRenal function panel Lab Routine Type 2 diabetes mellitus with hyperglycemia, without long-term current use of insulin ([facility]) Expected: 12/05/2024 (Approximate), Expires: 12/05/2025[facility] Comment on above:Expected: 12/05/2024 (Approximate), Expires: 12/05/2025Start: 12-01-2024 End: 26-55-1676Hikdhpj encounter procedureNOSAINT JOHN'S HEALTH SYSTEM ENDOCRINOLOGYComment on above: Type 2 diabetes mellitus without complication, unspecified whether residential insulin use (HCC)Start: 11-21-2024 End: 16-04-5435Cvhnciu encounter /22/2025 3:45 PM EDT Office Visit [facility] UROLOGY Part [address] [place] [address] Ruddy Valencia PAJuan ManuelC [address] [place] [address] [address] [place] [address] 1 year KUB, discuss hematuria, recent CT, labs and urine completed, KUB reminder 10/25/[address] [facility]1 [facility] KUB, discuss hematuria, recent CT, labs and urine completed, KUB reminder 10/25/2024 [facility]: 11-18-2024 End: 87-98-5817Eonhxch encounter jehylkuoi49/19/2025 9:00 AM EDT Office Visit [facility] UROLOGY Part of [facility] [address] [place] [phone] Lucas Perkins, SECURITIES UNDERWRITER - FELT CHECKER [address] [place] [address] post op stent [facility] UROLOGY Part [facility] HospitalComment on above:post op stent pullStart: 11-15-2024 End: 80-89-2729Wceso/uretero w/lithotripsy &indwell stent insrtCYSTOSCOPY URETEROSCOPY LASER Ureteral stone with hydronephrosis 11/15/2024 4:30 PM EDT [facility] Hospitalt[facility]: 11-11-2024 End: 64-61-0755Mqbhmzq encounter qmzqmuecc95/12/2025 3:15 PM EDT Office Visit [facility] [address] [place] Shira Cardoso DO [address] [place] [address] [facility] Comment on above:ArrivedStart: 11-10-2024 End: 28-54-4986Crlkrhr encounter procedureUN[facility] Part [facility] HospitalComment on above:1 year KUB1 year PÉREZB, KUB reminder 10/25/2024 GA,CMAStart: 11-02-2024 End: 36-54-7880Ovultcb encounter dlutmxyzs82/03/2025 1:20 PM EDT Office Visit NATALIIA BONILLA [address] [place] [phone] Roel Garber DO [address] [place] [address] NATALIIA LACYNStart: 10-31-2024 Influenza vaccinationNOMS HealthcareStart: 88-81-7033Gdxci BMI ScreeningAdult BMI ScreeningPike Community Hospital SystemStart: 64-10-2989Dmphtbj ScreeningTobacco ScreeningProCleveland Clinic Luther[facility] SystemStart: 50-63-1075Qbvpnfcvc vaccinationFlu vaccine (#1)[facility] HospitalStart: 09-29-2024 End: 48-68-1840Wmjgrca encounter fdzztirsl23/31/2025 10:15 AM EDT Office Visit [facility] [place]CIRA [place] [address] [place] [address] Shira Cardoso DO [address] [place] [address] NOMS ALCIRA HORNYStart: 09-26-2024 End: 46-48-6694Xyfiuzu encounter zyhstjkcg35/28/2025 2:20 PM EDT Office Visit TIGRE MENDOZA [address] [place] [address] Brittany Neville NP [address] [place], [place] TIGRE LAFLEURtart: 77-33-0805PvqzibsgnACMC Healthcare Systemtart: 53-64-5085HnrditmkuACMC Healthcare Systemtart: 08-18-2024 End: 53-87-7221Fhpxwgq encounter zoznqewqz62/19/2025 9:45 AM EDT Office Visit [facility] ALCIRA [place] [address] [place] [phone] Shira Cardoso DO [address] [place] [address] NOMS ALCIRA HORNYStart: 90-07-1625IsjgckmbsACMC Healthcare Systemtart: 84-06-2247BvalogeviACMC Healthcare Systemtart: 08-04-2024 End: 20-12-9532Livphcc encounter glxkgeqtg66/05/2025 10:30 AM EDT Office Visit [facility] [address] [place] [address] Cleo Zambrano MD [address] [place] [address] [facility] ENDOCRINOLOGYStart: 08-03-2024 End: 96-34-4483Vbdgogz encounter njnqyxtqs29/04/2025 8:40 AM EDT Office Visit TIGRE SAILAJA [address] [place] [address] Brittany Neville NP [address] [place], [place] TIGRE MIQUELtart: 08-02-2024 End: 17-77-9170MQ Humerus - left ViewsXR humerus left Imaging Routine Nexplanon removal Expected: 08/02/2024, Expires: 08/02/2025[facility] Work Phone: comment on above:Expected: 08/02/2024, Expires: 08/02/2025Start: 06-13-2024 End: 51-08-9661Warxexi encounter jrcabobch78/14/2025 9:45 AM EDT Office Visit [facility] [place] [address] [place] [phone] Shira Cardoso, DO [address] [place] [address] ArrivedNOMO ALCIRA REYESUSKYComment on above:ArrivedStart: 06-10-2024 End: 79-42-3011Wmmftcu encounter jdiskfuwr47/11/2025 10:45 AM EDT Office Visit [facility] ALCIRA HORNY [address] [place] [address] Shira Cardoso, DO [address] [place] [address] NOMS ALCIRA HORNYStart: 84-28-2287Mxvky BMI Screening Adult BMI ScreeningProCleveland Clinic Lutheran Hospital SystemStart: 05-26-2024 End: 65-71-3145IA Breast - bilateral ScreeningBilateral screening mammogram Imaging Routine Breast cancer screening by mammogram Expected: 05/26/2024 (Approximate), Expires: 07/26/2025[facility] Work Phone: comment on above:Expected: 05/26/2024 (Approximate), Expires: 07/26/2025Start: 05-26-2024 End: 48-46-6680Pemqjoq encounter /27/2025 11:00 AM EDT Office Visit NOMBrandyn RICO OB [address] [place] [phone] Roel Garber DO [address] [place] [address] NOMBrandyn RICO OBStart: 05-04-2024 End: 90-37-8152Ogerdnf encounter dpoqpxqjr50/05/2025 8:20 AM EST Office Visit TIGRE MENDOZA [address] [place] [address] Brittany Neville NP [address] [place], [place] TIGRE OLIVEREVPAVELtart: 12-59-0426Xtqww BMI ScreeningAdult BMI Screening ProMWindom Area Hospital SystemStart: 80-79-4113Sadvvun ScreeningTobacco Screening ProMWindom Area Hospital SystemStart: 04-28-2024 End: 29-26-3146Mxpniie encounter ptppgyyco31/27/2025 10:30 AM EST Office Visit NATALIIA [place] [address] [place] [address] Shira Cardoso DO [address] [place] [address] NOMBrandyn Shawart: 04-25-2024 End: 67-83-9306Oxfcqjs encounter /24/2025 9:00 AM EST Office Visit TIGRE [place] [address] [address] [place] [address] Brittany Neville, JO ANN [address] [place] [address] TIGRE HORNYStart: 04-18-2024 End: 45-36-2386P-peptideC-peptide Lab Routine Hormone imbalance Hormone disorder Expected: 04/18/2024 (Approximate), Expires: 04/18/2025N[facility] HealthcareComment on above:Expected: 04/18/2024 (Approximate), Expires: 04/18/2025Start: 04-18-2024 End: 67-80-5055Offhteuz freeCortisol, free Lab Routine Hormone imbalance Hormone disorder Expected: 04/18/2024 (Approximate), Expires: 04/18/2025[facility] Healthcare Comment on above:Expected: 04/18/2024 (Approximate), Expires: 04/18/2025Start: 04-18-2024 End: 21-62-2831Dyivwyb [Mass/volume] in Serum or PlasmaGlucose, random Lab Routine Hormone imbalance Hormone disorder Expected: 04/18/2024 (Approximate), E xpires: 04/18/2025[facility] HealthcareComment on above:Expected: 04/18/2024 (Approximate), Expires: 04/18/2025Start: 04-18-2024 End: [id number], totalInsulin, total Lab Routine Hormone imbalance Hormone disorder Expected: 04/18/2024 (Approximate), Expires: 04/18/2025[facility] HealthcareComment on above:Expected: 04/18/2024 (Approximate), Expires: 04/18/2025Start: 04-18-2024 End: [id number] serumSerotonin serum Lab Routine Hormone imbalance Hormone disorder Expected: 04/18/2024 (Approximate), Expires: 04/18/2025NOM[facility] HealthcareComment on above:Expected: 04/18/2024 (Approximate), Expires: 04/18/2025Start: 04-18-2024 End: 45-69-4884KnirttxmdotkgYzyovehgvaifz Lab Routine Hormone imbalance Hormone disorder Expected: 04/18/2024 (Approximate), Expires: 04/18/2025[facility] Comment on above:Expected: 04/18/2024 (Approximate), Expires: 04/18/2025Start: 04-18-2024 End: 46-42-1992Vkyvibiyrlxnh AntibodyThyroglobulin Antibody Lab Routine Hormone imbalance Hormone disorder Expected: 04/18/2024 (Approximate), Expires: 04/18/2025NOM[facility] HealthcareComment on above:Expected: 04/18/2024 (Approximate), Expires: 04/18/2025Start: 04-18-2024 End: 00-89-9896Ufaqwkjripx [Units/volume] in Serum or PlasmaNOMO Healthcare Comment on above:Ordered: 04/18/2024Expected: 04/18/2024 (Approximate), Expires: 04/18/2025Start: 04-18-2024 End: 09-70-9542Dxnktsu encounter cosopbtxo52/17/2025 10:50 AM EST Office Visit [facility] [address] [phone] Roel Garber DO [address] [place] [address] [facility] OBStart: 04-07-2024 End: 047789-jsduvhpwwljxai D3 [Mass/volume] in Serum or PlasmaVitamin D 25 hydroxy Total Lab Routine 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 2 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, 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 (CMS/HCC) Expected: 04/07/2024 (Approximate), Expires: 04/07/2025[facility] Work Phone: Comment on above:Expected: 04/07/2024 (Approximate), Expires: 04/07/2025Start: 04-07-2024 End: 34-65-4445Rchny 1996 panel - Serum or PlasmaLipid panel Lab Routine Type 2 diabetes mellitus without complication, unspecified whether residential insulin use (CMS/HCC) Expected: 04/07/2024 (Approximate), Expires: 04/07/2025[facility] HealthcareComment on above:Expected: 04/07/2024 (Approximate), Expires: 04/07/2025Start: 04-07-2024 End: 37-00-7841Bquebbwyntwr/Creatinine panel in random UrineMicroalbumin / creatinine urine ratio Lab Routine 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, 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 ([facility]) Expected: 04/07/2024 (Approximate), Expires: 04/07/2025[facility] HealthcareComment on above: Expected: 04/07/2024 (Approximate), Expires: 04/07/2025Start: 04-07-2024 End: 46-26-4894Ecepf function panelRenal function panel Lab Routine Type 2 diabetes mellitus without complication, unspecified whetherlong term insulin use ([facility]) Expected: 04/07/2024 (Approximate), Expires: 04/07/2025[facility] HealthcareComment on above:Expected: 04/07/2024 (Approximate), Expires: 04/07/2025Start: 03-24-2024 End: 58-98-2688Qjhepfx encounter jwgzrhegi90/23/2025 3:00 PM EST Office Visit [facility] [address] [facility] [address] [place] [phone] Brittany Neville NP [address] [place] [address] [facility] R[facility]TEStart: 03-17-2024 End: 59-18-5696Ifvrdgk encounter gtfixfzft06/16/2025 9:20 AM EST Office Visit [facility] ENDOCRINOLOG[facility] [address] [place] [phone] Cleo Zambrano MD [address] [place] [address] [facility] ENDOCRINOLOGYStart: 89-73-3166Pleeq BMI ScreeningAdult BMI ScreeningProCleveland Clinic Lutheran Hospital SystemStart: 48-90-9645Jxajwwujx for malignant neoplasm of breastMammogramNOMS HealthcareStart: 03-11-2024 End: 66-22-4226Fawffqu encounter /10/2025 10:00 AM EST Office Visit [facility] [address] [place] [address] Shira Cardoso, DO [address] [place] [address] [facility] ENT KORYYStart: 82-85-6210Yggwa A Streptococcus CultureGroup A Streptococcus CultureACMC Healthcare Systemtart: 02-19-2024 End: 57-28-5211Wsyjdvy encounter ggpwxtyam91/20/2024 2:00 PM EST Office Visit [facility] [address] [place] [phone] Shira Cardoso, DO [address] [place] [address] [facility] ALCIRA HORNYStart: 02-16-2024 End: 75-89-1421Gbfvkvo encounter wrvabrwfx54/17/2024 3:40 PM EST Office Visit [facility] [address] [place] [phone] Brittany Neville NP [address] [place] [address] [facility] ROUTEStart: 02-09-2024 End: 35-45-3666Vgoqunm encounter upzthjkga66/10/2024 11:15 AM EST [facility] [address] [place] [address] Tamar Silveira, PT dry needlingMTHZ Physical TherapyComment on above:dry needlingStart: 02-08-2024 End: 39-31-0252Aawbvog encounter ucihutovk99/09/2024 1:45 PM EST Appointment [facility] - MRI Imaging [address] [place] [phone] Ana Paula Ingram MD [address] [facility] [place] [address] [facility] - MRI ImagingStart: 38-95-0356Oonje BMI ScreeningAdult BMI ScreeningProCleveland Clinic Lutheran Hospitalca [facility] SystemStart: 40-95-0663Wlzpsjz ScreeningTobacco ScreeningProCleveland Clinic Lutheran Hospital SystemStart: 01-26-2024 End: 56-25-1008Hpywxhc encounter agqdpjwaf68/26/2024 8:00 AM EST Appointment [facility] Physical Therapy [address] [place] [address] Tamar Silveira, PT dry needlingMTHZ Physical TherapyComment on above:dry needlingStart: 01-13-2024 End: 44-09-5763Vubiznc encounter mznslkvib66/13/2024 8:15 AM EST Office Visit [facility] UROLOGY [address] [place] [phone] Ruddy Valencia, PA-C [address] [facility] [address] [place] [address] incontinence [facility] HospitalComment on above:incontinence Start: 12-29-2023 End: 68-98-5888Hdaurqt encounter oqlgfigds77/29/2024 9:00 AM EDT Appointment [facility] Physical Therapy [address] [place] [address] Tamar Silveira, PT NEEDLINGMTHZ Physical TherapyComment on above:NEEDLINGStart: 12-15-2023 End: 25-04-9906Szydpdw encounter lfkfuxmlp00/15/2024 9:00 AM EDT Appointment [facility] Physical Therapy [address] [place] [phone] Tamar Silveira, PT NEEDLINGMTHZ Physical TherapyComment on above:NEEDLINGStart: 12-01-2023 End: 49-85-9102Fpgusfu encounter itethwltf12/01/2024 9:45 AM EDT Appointment [facility] Physical Therapy [address] [place] [address] Tamar Silveira PT NEEDLINGMTHZ Physical TherapyComment on above:NEEDLINGStart: 20-22-3787Rofxsnbyt vaccinationSainte Genevieve County Memorial HospitalStart: 10-08-2023 End: 75-90-3236Gbfnttz encounter gtylvbmnd64/08/2024 9:00 AM EDT Office Visit [facility] Plastic and Reconstructive Surgery [address] [place] [address] Dwayne Khoury MD [address] [place] [address] [facility] Physicians Plastic and Reconstructive SurgeryStart: 10-01-2023 Influenza vaccinationFlu vaccine (#1)[facility] 2023 End: 87-20-0377Cpnvcao encounter zqdnkkfuz01/25/2024 2:00 PM EDT Office Visit [facility] [address] [place] [address] Gaurav Sellers, PA [address] [facility], 2nd [place] [address] [facility] - Pain Management ClinicStart: 09-01-2023 End: 36-59-6951Ebputox encounter bmwzozfkm12/02/2024 10:30 AM EDT Appointment [facility] Physical Therapy [address] [place] [address] Osito oRwan AMDong Physical TherapyStart: 08-26-2023 End: 99-35-4615Cnzyupo encounter /26/2024 2:30 PM EDT Appointment [facility] Physical Therapy [address] [place] [address] Kofi Villegas, PTMTHZ Physical TherapyStart: 08-18-2023 End: 10-57-2243Faujmhv encounter aqbqqeeba54/18/2024 9:45 AM EDT Appointment [facility] Physical Therapy [address] [place], [place] [phone] Osito Rowan Physical TherapyStart: 08-11-2023 End: 56-60-2892Siluwuq encounter enqqpyicp01/11/2024 1:15 PM EDT Appointment [facility] Physical Therapy [address] [place], [place] [phone] Jan Olmstead, PT DRY NEEDLINGMTHZ Physical TherapyComment on above:DRY NEEDLINGStart: 08-04-2023 End: 01-01-5446Lfvkqjc encounter xpqpsteru31/04/2024 4:15 PM EDT Appointment [facility] Physical Therapy [address] [place] [address] Osito Rowan Physical TherapyStart: 06-03-2023 End: 88-51-0111Qycnceg encounter fpkasiysf64/03/2024 3:30 PM EDT Appointment [facility] Physical Therapy [address] [place] [address] Osito Rowan Physical TherapyStart: 06-02-2023 End: 82-39-5842Tplaqvl encounter procedureMTHZ Physical TherapyComment on above: DRY NEEDLING- dont move coordinates with son's apptStart: 69-24-9390Mtlbtcfjv B vaccine (3 of 3 - Hep B Twinrix 3-dose series)Hepatitis B vaccine (3 of 3 - Hep B Twinrix 3-dose series)[facility]ENTERStart: 05-20-2023 End: 57-75-5669Fmypbcv encounter zugwuzyxb30/20/2024 3:15 PM EDT Appointment [facility] Physical Therapy [address] [place] [phone] Rojas Altamirano, PTAMTHZ Physical TherapyStart: 05-19-2023 End: 89-71-4882Izvpmzm encounter mbivtaahd63/19/2024 12:45 PM EDT Appointment [facility] Physical Therapy [address] [place] [address] Rebecca Skinner, PT DRY NEEDLING- dont move coordinates with son's apptDRY NEEDLINGMTHZ Physical TherapyComment on above:DRY NEEDLING- dont move coordinates with son's apptDRY NEEDLINGStart: 05-05-2023 End: 69-82-7800Ydjfqpc encounter procedureMTHZ Physical TherapyComment on above: DRY NEEDLINGDRY NEEDLING- dont move coordinates with son's apptStart: 05-03-2023 Urine screening for proteinUrine MicroalbuminWVUMedicine Barnesville Hospitalca [facility] SystemStart: 04-28-2023 End: 05-71-4515Mhdmmws encounter xvqiywgbq55/27/2024 10:45 AM EST Office Visit [facility] [address] [place] [phone] Gaurav Sellers PA [address] [place], [place] [phone] [facility] - Pain Management ClinicStart: 04-21-2023 End: 05-27-3607Dhvlmzm encounter procedureMTHZ Physical TherapyComment on above: DRY NEEDLINGDRY NEEDLING- dont move coordinates with son's apptStart: 04-07-2023 End: 87-63-6988Kvmhvck encounter joezlbbuf79/06/2024 2:15 PM EST Appointment [facility] Physical Therapy [address] [place], [place] [phone] Rebecca Skinner, IRV[place] DRY NEEDLINGMTHZ Physical TherapyComment on above:DRY NEEDLING Start: 03-27-2023 End: 61-69-2158Nrghcfbzy to same day surgery zldkes3403/27/2023 1:27 PM EST - 03/27/2023 1:33 PM EST Surgery [facility] - Pain P rocedures [address] [place] [phone] Zac Silver MD [address] [place], [place] [phone] INJECTION BLOCK SACROILIAC JOINT [97738 (CPT )][facility] - Pain ProceduresComment on above:INJECTION BLOCK SACROILIAC JOINT [75469 (CPT )]Start: 03-27-2023 End: 62-37-3674Jdhzxc si joint arthrgrphy&/anes/steroid w/imaINJECTION BLOCK SACROILIAC JOINT Disorder of sacrum 03/27/2023 1:27 PM ESTFREMONT PAINStart: 91-02-6689Ceiayytzxp hospital visit by ediswzwpy80/26/2024 1:27 PM EST Hospital Encounter [facility] - Pain Procedures [address] [place] [phone] Zac Silver MD [address] [place] [address] [facility] - Pain ProceduresStart: 03-24-2023 End: 99-94-0327Rvmqaxe encounter wnfuovesv95/23/2024 2:15 PM EST Appointment [facility] Physical Therapy [address] [place], [place] [phone] Rebecca Skinner, PT DRY NEEDLINGGLEN COVE [facility] Physical TherapyComment on above:DRY NEEDLING Start: 13-88-7621EwlvloypkACMC Healthcare Systemtart: 03-16-2023 End: 56-24-7529Lkxiwcc encounter cdynnwapu45/15/2024 11:45 AM EST Appointment [facility] - Mammogram DEXA [address] [place] [address] [phone] Hospitals St[facility]A Start: 03-10-2023 End: 41-50-3344Uabxkwl encounter /09/2024 2:30 PM EST Appointment [facility] Physical Therapy [address] [place] [phone] Rebecca Skinner, PTMTHZ Physical TherapyStart: 98-22-8231Ptnthoxja vaccinationFlu vaccine (#1)[facility]Start: 86-36-1197Ometfymxj vaccinationFlu vaccine (#1)[facility]ITALStart: 37-27-0012MXqI,Tdap and Td Vaccines (1 - Tdap)DTaP,Tdap and Td Vaccines (1 - Tdap)[facility]: 01-07-2185EBqG/Tdap/Td vaccine (1 - Tdap)DTaP/Tdap/Td vaccine (1 - Tdap)[facility]: 38-01-5620Sdvgqalccq ScreeningDepression Screening [facility]: 10-48-5929Peelj panelLipLifePoint Health: 14-82-1898Virvszhi foot examinationDiabetic Foot ExamFormerly [facility] Hospitaltart: 53-02-8936Uvkmvgxa screenDiabetes screenC[facility] Hospital: 29-77-7228Ptyotwtke for malignant neoplasm of cervixBON [facility]: 64-95-8211Zruitjjog for malignant neoplasm of cervixPap smear [facility]: 10-84-8965XCiA/Tdap/Td vaccine (1 - Tdap) DTaP/Tdap/Td vaccine (1 - Tdap)[facility]: 04-89-4551Zwaqa BMI Follow Up PlanAdult BMI Follow Up PlanFormerly [facility]owell Hospitaltart: 43-76-4578Uvnnhqyjg C screeningHepatitis C screenC[facility] Hospital: 36-99-9803TAE screeningHIV screenCumberland Hospital: 1993 Varicella vaccine (1 of 2 - 13+ 2-dose series)Varicella vaccine (1 of 2 - 13+ 2- dose series)[facility]: 56-94-9517Qygehpijtg ScreenDepression ScreenC[facility] Hospital: 03-92-7278Gmdtqqgrao ScreeningDepression ScreeningFormerly [facility] Hospitaltart: 73-67-5434Egppj panelLipLifePoint Health: 25-32-3096Pxqcdgsby vaccine (1 of 2 - 2-dose childhood series)Varicella vaccine (1 of 2 - 2-dose childhood series)[facility]: 68-89-5420JEAWY-19 Vaccine (#1)COVID-19 Vaccine (#1)[facility]: 79-62-5772Jjzhtgyw screeningDiabetic Ophthalmology Exam [facility]: 19-48-3028Zksmqfhvt B vaccine (1 of 3 - 3-dose series)Hepatitis B vaccine (1 of 3 - 3-dose series)[facility] [employer] Start: 83-05-3893Znhfky Use: DiabeticStatin Use: DiabeticPike Community Hospital System End: 90-00-2104Mnaqvcj, UrineRiverside Health System [employer] Work Phone: Comment on above:1 Occurrences starting 11/14/2024 until 11/14/20249423BZFP-rljoqrtJCZB-sktgqch Lab Routine Hormone imbalance Hormone disorder Ordered: 04/18/2024[facility] HealthcareComment on above:Ordered: 04/18/2024 EKG 12 LeadEKG 12 Lead ECG Routine 01/13/2024 2:59 PM [facility] N2CareEstradiolEstradiol Lab Routine Hormone imbalance Hormone disorder Ordered: 04/18/2024[facility] Work Phone: comment on above:Ordered: 04/18/2024EstroneEstrone Lab Routine Hormone imbalance Hormone disorder Ordered: 04/18/2024[facility] Comment on above:Ordered: 04/18/2024Ferritin [Mass/volume] in Serum or Plasma Ferritin Lab Routine Hormone imbalance Hormone disorder Ordered: 04/18/2024[facility] HealthcareComment on above:Ordered: 04/18/2024Hemoglobin A1c/Hemoglobin.total in BloodHemoglobin A1c Lab Routine Hormone imbalance Hormone disorder Ordered: 04/18/2024[facility] HealthcareComment on above:Ordered: 04/18/2024 End: 36-00-4764XWVDCHHN PACU OXYGEN THERAPY PROTOCOLInitiate PACU Oxygen Therapy Protocol Respiratory Care Routine Continuous until discontinued starting 11/15/2024 [email or web address] Phone: Comment on above:Continuous until discontinued starting 11/15/2024Inject si joint arthrgrphy&/anes/steroid w/imaINJECTION BLOCK SACROILIAC JOINT Disorder of [facility] SystemNjx dx/ther agt pvrt facet jt lmbr/sac 1 levelINJECTION BLOCK NERVE MEDIAL BRANCH Lumbosacral spondylosis without myelopathyFostoria City HospitalOxygen therapy [Minimum Data Set]Initiate Oxygen Therapy Protocol Respiratory Care Routine As Needed until discontinued starting 11/15/2024 [email or web address] Phone: Comment on above:As Needed until discontinued starting 11/15/2024Patient EducationKnow your [facility] Work Phone: Patient [facility] Work Phone: ProgesteroneProgesterone Lab Routine Hormone imbalance Hormone disorder Ordered: 04/18/2024[facility] HealthcareComment on above:Ordered: 04/18/2024Sex hormone binding globulinSex hormone binding globulin Lab Routine Hormone imbalance Hormone disorder Ordered: 04/18/2024[facility] HealthcareComment on above:Ordered: 04/18/2024[facility] CenterComment on above: Release Upon Ordering for 1 Occurrences starting 11/15/2024Streptococcus pyogenes [Presence] in Unspecified specimen by Organism specific culture [facility] HospitalT3, reverseT3, reverse Lab Routine Hormone imbalance Hormone disorder Ordered: 04/18/2024[facility] HealthcareComment on above: Ordered: 04/18/2024TESTOSTERONE, FREETESTOSTERONE, FREE Lab Routine Hormone imbalance Hormone disorder Ordered: 04/18/2024[facility] HealthcareComment on above: Ordered: 04/18/2024Testosterone, free, totalTestosterone, free, total Lab Routine Hormone imbalance Hormone disorder Ordered: 04/18/2024[facility] Comment on above:Ordered: 04/18/2024THIN PREP TIS PAP AND HR HPV DNATHIN PREP TIS PAP AND HR HPV DNA Pathology and Cytology Routine Well woman exam with routine gynecological exam Ordered: 05/26/2024[facility] HealthcareComment on above: Ordered: 05/26/2024Thyroid peroxidase antibodyThyroid peroxidase antibody Lab Routine Hormone imbalance Hormone disorder Ordered: 04/18/2024[facility] Comment on above:Ordered: 04/18/2024Thyroxine (T4) free [Mass/volume] in Serum or PlasmaT4, free Lab Routine Hormone imbalance Hormone disorder Ordered: 04/18/2024[facility] HealthcareComment on above:Ordered: 04/18/2024Triiodothyronine (T3) Free [Mass/volume] in Serum or PlasmaT3, free Lab Routine Hormone imbalance Hormone disorder Ordered: 04/18/2024[facility] HealthcareComment on above:Ordered: 04/18/2024Vitamin D 1,25 dihydroxyVitamin D 1,25 dihydroxy Lab Routine Hormone imbalance Hormone disorder Ordered: 04/18/2024[facility] HospitalComment on above: Ordered: 04/18/2024 End: 01-05-2942IP Abdomen Nakul Junior [facility] Work Phone: Comment on above:1 Occurrences starting 11/07/2024 until 11/07/2024 Immunizations Immunization DateImmunizationNotesCare TfxccemsBcuwpgxi19-96-6067vmujzthdq, seasonal, injectable, preservative freePaula Sanderson MD Work Phone: [facility] HospitalAxpfejnyzd31-69-3104khdqpeoob virus vaccine, unspecified formulationShira Cardoso DO Work Phone: [facility] HospitalMekszezhjw26-14-7616kqzwlvynf A and hepatitis B vaccinePaula Sanderson MD Work Phone: [facility] HospitalPrmfqeqdvn69-93-9250zgkpzmnjj A and hepatitis B vaccinePaula Sanderson MD Work Phone: [facility] HospitalLedyuotqii21-26-2635Afntpesw, quadrivalent, recombinant, injectable influenza vaccine, preservative Uri Sanderson MD Work Phone: [facility] HospitalZkhykzuwyb60-95-8277ibkeafnza virus vaccine, unspecified formulationDeepika Cox MD Work Phone: [facility] HospitalMqktdt16-08-6139mbadiyyho A and hepatitis B vaccinePaula Sanderson MD Work Phone: [facility] HospitalXtwungmsze81-93-5355Hbexchoznqmt Conjugate PCV 20 Paula Sanderson MD Work Phone: [facility] HospitalQwadpacmpv38-64-9520jryeoqott, injectable, quadrivalent, preservative freePaula Sanderson MD Work Phone: [facility] HospitalHcijkutowh43-41-9818PE(adult) unspecified formulationPaula Sanderson MD Work Phone: [facility] HospitalEsbbebturl02-64-7213cevhlnv toxoid, reduced diphtheria toxoid, and acellular pertussis vaccine, adsorbedPahawa Cardoso DO Work Phone: [facility] HospitalAusgysnmpy63-58-6571mqkafpjck, injectable, quadrivalent, preservative Uri Sanderson MD Work Phone: [facility] HospitalFclmtddlcz08-20-6155bbvjkldpb, injectable, quadrivalent, preservative Uri Sanderson MD Work Phone: [facility] HospitalSwcztbifls48-52-2714vghdthjuo, injectable, quadrivalent, preservative freeAbrazo Arizona Heart Hospitalya [facility]10-03-2018 influenza, injectable, quadrivalent, preservative freeAbrazo Arizona Heart Hospitalya [facility]10-03-2018pneumococcal conjugate vaccine, 13 valentTonya Dotty ADHIKARI [facility] HospitalUezhth95-30-7337nsnxcixyy virus vaccine, unspecified formulationAbrazo Arizona Heart Hospitalya [facility]08-11-2017influenza, seasonal, injectable, preservative Uri Sanderson MD Work Phone: [facility] HospitalHlkbxwxttr38-03-5346usyouaron virus vaccine, live, attenuated, for intranasal useAllegheny General Hospital 31-53-6169cjtpnxjfo virus vaccine, whole virusAbrazo Arizona Heart Hospitalya [facility]10-29-2012influenza virus vaccine, whole virusAbrazo Arizona Heart Hospitalya [facility]10-24-2011influenza virus vaccine, whole virusAbrazo Arizona Heart Hospitalya Dotty ADHIKARI [facility] HospitalSaiojo22-62-4445zclqlkycg virus vaccine, whole virusAbrazo Arizona Heart Hospitalya [facility] Payers DatePayer CategoryPayerPolicy [id number] 2023Unknown2014Medicaid (Managed Care)[id number] 2003Medicaid [id number] 2003Medicaid [facility] Member Subscriber Plan / Payer (Effective 2002-Present) Name: Karma Sr Relation to Subscriber: Self Name: Karma Sr Payer ID: [id number] (NAIC) Group ID: Not on file Type: Not on file Address: [address] [id number] [id number] 2..1.222328.3.57[id number] 2..1.065271.3.57[id number] 2..1.177796.3.57[id number] 2..1.913667.3.57[id number] 2.0.1.197492.3.57[id number] 2.0.1.748822.3.57[id number] 2.0.1.765667.3.57[id number] 2.0.1.233980.3.57[id number] 2.0.1.299007.3.57[id number] 2.0.1.994056.3.57[id number] 2.840.1.384480.3.57[id number] 2.0.1.487676.3.57[id number] 2.840.1.505420.3.57[id number] 2.0.1.270603.3.57[id number] 2..1.348779.3.57[id number] 2.0.1.434660.3.57[id number] 2.0.1.183787.3.57[id number] 2.0.1.744471.3.57[id number] 2..1.206786.3.57[id number] 2.0.1.949279.3.57[id number] 2..1.873030.3.57[id number] 2.0.1.334400.3.579.2.5[id number] 2.0.1.530102.3.57[id number] 2.840.1.765421.3.57[id number] 2.840.1.261724.3.57[id number] 2..1.195641.3.579.2.202543-20-6843Lzkatvt14591652 2..1.251365.3.579.2.178252-31-9828Tbxcdap97023549 2..1.881087.3.579.2.635618-39-8565Ejilhto94251758 2..1.992728.3.579.2.048614-82-0812Jfbbdnc28880910 2..1.864569.3.579.2.166661-78-4355Kmojtyn25283874 2..1.147189.3.579.2.091441-45-5352Coxeazb2914504 2..1.251508.3.579.2.019060-34-1022Ppudbto6391938 2..1.772319.3.579.2.467119-45-2923Ousotpc1102196 2..1.977683.3.579.2.[id number] 2..1.795646.3.579.2.186566-96-2312Tbufaga2368113 2..1.614698.3.579.2.657293-00-4445Uvmevnj7700031 2..1.713696.3.579.2.913306-13-0958Dwwfyge8901721 2..1.428257.3.579.2.985836-37-2987Hpwthtz2241088 2..1.134728.3.579.2.180399-39-6694Wmozala06190731 2.16.840.1.976270.3.57[id number] 2.0.1.641245.3.579.2.94812-84-1212Ishpdpq87037018 2.840.1.896693.3.579.2.89906-11-0027Mbnktli14414058 2.0.1.334423.3.579.2.13430-24-0143Evrgsen61240286 2.0.1.813008.3.579.2.95815-33-6030Mxydjlz96467026 2..1.930495.3.579.2.94281-52-1818Wdskwvg15043781 2.0.1.942699.3.579.2.20577-12-2586Jspntlx71469596 2..1.520096.3.579.2.99843-82-3715Rxbvwba93535625 2..1.492568.3.579.2.06538-02-0497Qqttwkb80065536 2..1.267366.3.579.2.76205-48-5166Fpjvmcr41703975 2..1.363287.3.579.2.173 [id number] 2.0.1.877768.3.579.2.480Tyrudkz09089114 2.0.1.203131.3.579.2.531 Bdrsxql76446765 2.0.1.406390.3.579.2.150Apkacev30707347 2.0.1.837409.3.579.2.531 Social History DateTypeDetailFacilityStart: 09-02-2017 End: 46-73-7362Yegnhji smoking status NHISNever smoked tobaccoBON UnisfairStart: 09-02-2017 End: 89-63-4959Vcwunol use and exposureSmokeless tobacco non-userBAN[facility] [employer] Phone: start: 10-11-2021 End: 67-27-2137Fpxpawo intakeCurrent non-drinker of alcohol (finding)[facility] Work Phone: start: 01-86-3152Akg Assigned At BirthNot on fileBANNER GATEWAY MEDICAL CENTER [employer] Phone: start: 10-01-2021 End: 91-32-1706Kckotooc to SARS-CoV-2 (event)Not sureBANNER GATEWAY MEDICAL CENTER [employer] Phone: start: 03-13-2020 End: 31-00-6300Lwr Assigned At [facility] HospitalTobacco smoking statusNeverTrinity Health Systemtart: 03-13-2020 End: 80-77-0739Idbsxyq of Social functionSAINT JOHN OF GOD HOSPITALDATYStart: 19-70-0075Fiz Assigned At [facility] CenterHow often to you have a drink containing alcohol?NeverBANNER GATEWAY [facility] UnisfairStart: 02-11-2024 End: 19-26-5357Szsbbyrng beverage intakeLifetime non-drinker (finding)[facility] HospitalStart: 40-21-0831YhwIuulqaq sex unknown (finding)[facility] Systemtart: 04-11-2012 End: 07-26-8939FcxMlycqp (finding)[facility] Procedure CodeEquipment CodeEquipment Original TextEquipment IdentifierDates Implantation of hypoglossal nerve stimulator ()[id number] FDAStart: 57-77-7237Ttgaoifkpjxy of hypoglossal nerve stimulatorImplantable sleep apnoea treatment system, respiration-sensing()[id number] FDAStart: 08-10-2024 Implantation of hypoglossal nerve stimulator ()[id number] FDAStart: 15-81-4667Erkrct Sut 5.5mm 2 Ft Crkscr Fbrwr Shldr 3 Pk 14.7mm Strl Ea=Bill-Only Rpl [id number] - [id number]_igfApgif: 67-40-5278Nxl to test BLOOD SUGAR TWICE DAILY [id number]: 44-38-0785Hhb to test BLOOD SUGAR TWICE DAILY, Diagnosis: E11.9 [id number]: 31-18-4590Ocugdqjflzdzux System, Hand/Wrist Internal Brace Ligament Augmentation Repair()[id number], [id number] FDAStart: 69-37-2266Rsorauz Dx Swivelock Sl, With Forked Eyelet, 3.5 X 8.5mm ()[id number], [id number]_imp FDAStart: 73-27-0042Otejcki Dx Swivelock Sl, With Forked Eyelet, 3.5 X 8.5mm ()[id number], [id number]_imp FDAStart: .062 9татьяна Underwood [id number]_jmiZride: 85-37-3233Yswmu Uret 6fr L24cm Hydr+ Grad Circumferential Mrk Lo Prof - [id number]_pwzIixwd: 11-15-2024 Goals DatePatient GoalDesired Activity/State Functional Status DateAssessmentResultFaCentra Health Clinical Notes 10-22-2021 to 12-20-2024 Note Date & ZcuyHjzjMgegquit02-56-4375 Miscellaneous Notes* Telephone Encounter - Lily Lopez CMA - 12/20/2024 1:23 PM EDT Patient called about surgery inquiry, she said her telephonic nurse case manager fannie number is [phone] If we could reach out to her once we speak to fannie on her case. documented in this encounterF[facility]10-[facility] Telephone encounter Note* Telephone Encounter - Lily Lopez CMA - 12/20/2024 1:23 PM EDT Patient called about surgery inquiry, she said her telephonic nurse case manager fannie number is [phone] If we could reach out to her once we speak to fannie on her case. [facility]10-09-2025 Miscellaneous Notes* Telephone Encounter - Uri Rowland - 12/08/2024 1:11 PM EDT Pt called office requesting Eyelet Operator for Dr. Khoury call pt back immediately . Pt states ins never received prior auth for surgery. Requested to stay on hold until pick remover could speak to pt. Psc notified pt that Dr. Khoury was in clinic today so staff may not be at desk to answer. Pt was transferred to geographic information systems engineer line and did not want to leave vm so pt called back stating needs to speak to Terrazzo Tile Maker SHAKIR Pt requesting call back from geographic information systems engineer documented in this encounterFostoria City Hospital10-09-2025 Telephone encounter Note* Telephone Encounter - Uri Rowland - 12/08/2024 1:11 PM EDT Pt called office requesting Eyelet Operator for Dr. Khoury call pt back immediately . Pt states ins never received prior auth for surgery. Requested to stay on hold until pick remover could speak to pt. Psc notified pt that Dr. Khoury was in clinic today so staff may not be at desk to answer. Pt was transferred to geographic information systems engineer line and did not want to leave vm so pt called back stating needs to speak to Terrazzo Tile Maker SHAKIR Pt requesting call back from geographic information systems engineer [facility]10-02-[facility] History of Present illness Narrative* Cleo Zambrano MD - 12/01/2024 11:00 AM [...] yet. HPI: 06/2020 New patient sent from [facility] for uncontrolled diabetes. 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 documented in this encounterSainte Genevieve County Memorial HospitalUhvgarpsdx42-33-4614 NoteSubjective Patient ID: Karma Whitehead is a 44 y.o. female who presents for Hyperlipidemia, Obesity, Diabetes, Anemia, Patient is here today for surgery clearance for a breast re, and Follow-up (Patient is a usually seen at the [facility] office.Patient states she need to have a [...] Follow up in about 6 weeks (around 01/04/2025).[facility]09-18-2025 NoteHNO ID: [id number] Author: VINAY CANADA RT(R) Service: ? Author Type: Curtain Hemmer Automatic Type: Progress Notes Filed: 11/17/2024 12:42 Note Text: Radiology Service Progress Note PATIENT NAME: Karma Thorne DATE OF SERVICE: November 17, 2024 TIME: [...] PATIENT PRESENTS WITH AN IMPLANTABLE OR ATTACHED PV DESIGN ENGINEER: No RADIOLOGY DEPARTMENT: General X-ray: Exam(s) Completed: Lower Extremity X-Ray(s): Ankle, Bilateral and Wt. Bearing PERIPHERAL IV DATA: Not applicable SIGNED BY: RT ZAIDA(R) November 17, 2024 12:41 [facility]09-18-2025 NoteHNO ID: [id number] Author: DAVID HDZ MD Service: ? Author Type: Physician Type: Progress Notes Filed: 11/17/2024 14:24 Note Text: November 17, 2024 HPI: Karma Thorne is a 44 yo female with injury [...] fluticasone 50 mcg/actuation nasal spray Use 1 [place] in each nostril as needed. CYANOCOBALAMIN, VITAMIN [...] disturbance, mood disorder and recent psychosocial stressors. HEMATOLOGIC/LYMPHATIC/IMMUNOLOGIC:Negative for prolonged bleeding, bruising easily, and swollen [...] appearance. Hearing is chano (more content not included)...[facility] 11-16-2024 Telephone encounter Note* Telephone Encounter - Austin Finneyarthy - 11/16/2024 11:52 AM EDT Mounjaro caused kidney stones so she wants to try for ozempic again. Please and thank you! [facility] HospitalLvzbrsbjfc18-29-4850 Miscellaneous Notes* Telephone Encounter - Austin Gregorio - 11/16/2024 11:52 AM EDT Mounjaro caused kidney stones so she wants to try for ozempic again. Please and thank you! documented in this encounterSainte Genevieve County Memorial HospitalKmxcoqfzrj69-80-6141 History of Present illness Narrative* Deshawn Saleem RN - 11/15/2024 6:25 PM EDT Discharge Criteria Inpatients must meet Criteria 1 [...] Yes 14. Accompanied by a responsible adult. Yes-momLinnea * Deshawn Saleem RN - 11/15/2024 5:29 PM EDT BS 83 @1728. * Deshawn Saleem RN - 11/15/2024 5:25 PM EDT SORAYA Oneal stated patient can be transferred to phase 2 earlier if patient is comfortable. documented in this encounterBon [facility]09[facility] Hospital Discharge instructions* Discharge Instructions* Deshawn Saleem RN - 11/15/2024 5:20 PM [...] flush the urinary tract.) Call Dr. Stovall ([phone]) if you develop: Fever over 100 degrees [...] Call Dr. Stovall office for follow-up appointment ([phone]). Gave a dose of pain med (Oxycodone 5mg) at 6:00 PM. Gave a dose of zofran at 6:05 PM documented in this encounterBon Secours Memorial [facility]09-16-2025 Miscellaneous Notes* Telephone Encounter - Rebecca Rees - 11/15/2024 10:57 AM EDT Images from the original note [...] letter from her insurance. documented in this encounterFostoria City Hospital09-16-2025 Telephone encounter Note* Telephone Encounter - Rebecca Rees - 11/15/2024 10:57 AM EDT Images from the original note [...] receive the approval letter from her insurance. [facility]09-12-2025 History of Present illness Narrative* Shira Cardoso, DO - 11/11/2024 3:15 PM EDT Subjective Patient ID: Karma Banegas is a 44 y.o. female who presents for Sleep Apnea (Thinks her Inspire has moved again) HPI This patient presents for recheck of her hypoglossal nerve stimulator. She believes the lead on thenerve has become disconnected. States that she is [...] The rest of her review of systems isnegative Objective ENT Physical Exam General Examination: General [...] to 44.9 in adult,unspecified obesity type (CMS-HCC) Comments: Patient needs to be considered for breast reduction to prevent tension on the area of her generatorplacement. Intolerance of continuous positive airway pressure (CPAP) ventilation Comments: Patient should continue her efforts to lose weight. Recheck implant in 1 year documented in this encounterSainte Genevieve County Memorial HospitalDfrfheyodm96-65-0351 Miscellaneous Notes* Telephone Encounter - Keri Glass - 11/11/2024 2:22 PM EDT Pt called wanting to know the status [...] someone will be getting back to her. * Telephone Encounter - Lily Lopez CMA - 11/11/2024 2:22 PM EDT Message relayed to geographic information systems engineer, due to not being on the clinical staff pool. documented in this encounterFostoria City Hospital09-12-2025 Telephone encounter Note* Telephone Encounter - Keri Glass - 11/11/2024 2:22 PM EDT Pt called wanting to know the status [...] someone will be getting back to her. [facility]09-12-20[facility] Telephone encounter Note* Telephone Encounter - Lily Lopez CMA - 11/11/2024 2:22 PM EDT Message relayed to geographic information systems engineer, due to not being on the clinical staff pool. [facility]09-04-2025 Evaluation note* Diagnosis Onset Date Resolution Status Admit Date Hypersomnia acuteSept2024 3:37pmGERD (gastroesophageal reflux disease)acute November 17, 2024 8:46amIrritable bowel syndrome with constipationacute November 17, 2024 8:46am [facility] Work Phone: 1(154) 266-607709-03-2025 History of Present illness Narrative* Arcelia Duran NP - 11/02/2024 1:20 PM EDT Reason for [...] of: Roel Garber DO documented in this encounterSainte Genevieve County Memorial HospitalPlhsfogugq88-22-1843 Telephone encounter Note* Telephone Encounter - Austin Perkins - 10/03/2024 2:40 PM EDT Pt would like to titrate up mounjaro to [facility] please and thank you! [facility] HospitalBvoakwlkbc63-65-7337 Miscellaneous Notes* Telephone Encounter - Austin Perkins - 10/03/2024 2:40 PM EDT Pt would like to titrate up mounjaro to [facility] please and thank you! documented in this encounterSainte Genevieve County Memorial HospitalEvzhirmjij95-34-0355 History of Present illness Narrative* Shira Cardoso [...] recheck in 1 year documented in this encounterSainte Genevieve County Memorial HospitalPwirlrbotu24-19-5154 History of Present illness Narrative* Shira Cardoso [...] Insecurity: No Food Insecurity (10/05/2023) Received from [facility] Hunger Screening Within the past [...] At Risk (06/20/2024) Re[facility] from [facility] Humiliation, Afraid, Rape, and Kick [...] pectoralis muscleto prevent mobility. documented in this encounterSainte Genevieve County Memorial HospitalOwtdcfrveu94-67-4970 Miscellaneous Notes* Telephone Encounter - Rebecca Rees [...] surgery. PT was understanding. documented in this encounterFostoria City Hospital07-08-2025 Telephone encounter Note* Telephone Encounter - [...] scheduled for their surgery. PT was understanding. [facility] [id number] History of Present illness Narrative* Shira Cardoso [...] scheduled in 1 year documented in this encounterSainte Genevieve County Memorial HospitalHhrjhixcqb08-32-9440 History of Present illness Narrative* Shira Cardoso [...] up in 1 year documented in this encounterSainte Genevieve County Memorial HospitalFqicdemask82-41-3415 Evaluation note* Diagnosis Onset Date Resolution Status Admit Date GERD (gastroesophageal reflux disease) acuteJune 2024 1:22pmIrritable bowel syndrome with constipationacuteJune 2024 1:22pm [facility] Work Phone: 1(206) 516-888106-09-2025 Evaluation note* Diagnosis Onset Date Resolution Status Admit Date GERD (gastroesophageal reflux disease) acuteJune 2024 1:22pmIrritable bowel syndrome with constipationacuteJune 2024 1:22pmHypersomniaacuteSeptember 2024 3:37pm [facility] Work Phone: 1(337) 579-933506-05-2025 History of Present illness Narrative* Cleo Zambrano [...] yet. HPI: 06/2020 New patient sent from [facility] for uncontrolled diabetes. A1c of [...] Diagnosis Date Anemia Attention deficit hyperactivity disorder ([facility]) 04/27/2024 Bipolar disorder Body mass index (BMI) of 36.0 to 36.9 Cholecystitis 2017 Acute/chronic Chronic rhinitis Circadian rhythm sleep disorder, shift work type 04/27/2024 Controlled type 2 diabetes mellitus without complication, without long-term current use of insulin Disorder of sacrum 01/29/2023 Gastritis 2017 GERD (gastroesophageal reflux disease) Hyperlipemia ([facility]) Impulse control disorder ([facility]) 04/27/2024 Insertion of Nexplanon Iron deficiency anemia Kidney stones Macromastia 10/08/2023 Mass of upper outer quadrant of right breast 06/02/2023 Mixed bipolar affective disorder, moderate ([facility]) 04/27/2024 OCD (obsessive compulsive disorder) ([facility]) Open wound of toe without complication 03/10/2023 PTSD (post-traumatic stress disorder) ([facility]) Recurrent epistaxis Seasonal allergies Symptomatic mammary hypertrophy 06/02/2023 Type 2 diabetes mellitus with hyperglycemia ([facility]) Umbilical hernia 2017 Vitamin D deficiency Past [...] 2 diabetes mellitus without complication, 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 documented in this encounterSainte Genevieve County Memorial HospitalDpfuscaxvn95-24-3129 History of Present illness Narrative* Sonal Ball [...] and foot 03/10/2023 PTSD (post-traumatic stress disorder) ([facility]) 06/16/2018 Recurrent epistaxis 03/10/2023 Type 2 diabetes mellitus without complication 11/10/2017 Well woman exam with routine gynecological exam 05/25/2023 Type 2 diabetes mellitus with hyperglycemia ([facility]) 02/11/2024 Vitamin D deficiency, unspecified 02/11/2024 Hyperlipidemia, unspecified ([facility]) 02/11/2024 Resolved Ambulatory Problems Diagnosis Date Noted Hot flashes 03/10/2023 Postoperative abscess 09/28/2016 Open wound of toe without complication 03/10/2023 Disorder of sacrum 01/29/2023 Macromastia 10/08/2023 Mass of upper outer quadrant of right breast 06/02/2023 Symptomatic mammary hypertrophy 06/02/2023 Attention deficit hyperactivity disorder ([facility]) 04/27/2024 Circadian rhythm sleep disorder, shift work type 04/27/2024 Impulse control disorder ([facility]) 04/27/2024 Mixed bipolar affective disorder, moderate ([facility]) 04/27/2024 Past Medical History: Diagnosis Date Bipolar [...] moderate (CMS/HCC) 04/27/2024 OCD (obsessive compulsive disorder) ([facility]) Open wound of toe without complication 03/10/2023 PTSD (post-traumatic stress disorder) ([facility]) Recurrent epistaxis Seasonal allergies Symptomatic mammary hypertrophy 06/02/2023 Type 2 diabetes mellitus with hyperglycemia ([facility]) Umbilical hernia 2017 Vitamin D deficiency Social [...] nursing note reviewed. Exam conducted with a tire wrapper present. Vitals: Estimated body mass index is [...] cleocin faxed to pharmacy. Documented by Sonal aBll LPN on behalf of: Roel Garber DO documented in this encounterSainte Genevieve County Memorial HospitalGacblwopoe00-88-1597 Telephone encounter Note* Telephone Encounter - Austin Perkins - 07/20/2024 11:58 AM EDT Received request for surgery clearance based on last visit for wrist/hand surgery. Please advise. [facility] HospitalTsqinukccu74-32-7819 Miscellaneous Notes* Telephone Encounter - Austin Perkins - 07/20/2024 11:58 AM EDT Received request for surgery clearance based on last visit for wrist/hand surgery. Please advise. documented in this encounterSainte Genevieve County Memorial HospitalZjoffpfidz70-34-1099 Hospital Discharge instructions* Discharge Instructions* Prieto Daniel PA-C - 07/16/2024 1:36 PM EDT May use ice and elevation for the ankle continue your ibuprofen and use of your Flexeril at home for muscle relaxant for your lower back would apply cold pack to the lower back for 20 minutes severaltimes a day as well. Follow-up with your primary care and or pharmacy specialist for these concerns. * Attachments The following attachments cannot be sent through Care Everywhere. * Back Pain ([place]) * Arthritis ([place]) documented in this encounterBon Secours Memorial [facility]05-01-2025 History of Present illness Narrative* Bela Ribeiro [...] nursing note reviewed. Exam conducted with a tire wrapper present. Vitals: Estimated body mass index is [...] of: Roel Garber DO documented in this encounterSainte Genevieve County Memorial HospitalNnuvbwoidx48-56-7469 NoteUTP CARDIOLOGY PROGRESS NOTE [facility] HPI: Karma Whitehead is a 43 y.o. [...] , with Irma's disease with complications of MA. Mother has no significant family hx. Patient [...] echocardiogram to assess c (more content not included)...[facility]04-14-20[facility] History of Present illness Narrative* Shira Cardoso, [...] well as upcoming surgery documented in this encounterSainte Genevieve County Memorial HospitalXtkrgzymck61-50-4728 Evaluation note* Diagnosis Onset Date Resolution Status Admit Date Constipation acuteApril 2024 9:26amFatty liveracuteApril 2024 9:26amGERD (gastroesophageal reflux disease)acuteApril 2024 9:26amIBS (irritable bowel syndrome)acuteApril 2024 9:26am [facility] Work Phone: [phone]) 813-542904-03-2025 Evaluation note* Diagnosis Onset Date Resolution Status Admit Date Constipation acuteApril 2024 9:26amFatty liveracuteApril 2024 9:26amGERD (gastroesophageal reflux disease)acuteApril 2024 9:26amIBS (irritable bowel syndrome)acuteApril 2024 9:26amGERD (gastroesophageal reflux disease)acute Sandra 2024 1:22pmIrritable bowel syndrome with constipationacuteJune 2024 1:22pm [facility] Work Phone: 1(664) 143-103003-27-2025 History of Present illness Narrative* Becky Silvestre [...] Noted Acute cholecystitis 09/15/2016 Anemia 03/10/2023 Asthma ([facility]) 03/10/2023 Axillary lymphadenopathy 05/10/2020 Bilateral foot pain 03/10/2023 Cervical disc displacement 09/21/2017 Chronic rhinitis 03/10/2023 Disc displacement, lumbar 10/11/2018 Diverticulitis 03/10/2023 Intervertebral disc 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 12/02/2022 Lumbosacral spondylosis without myelopathy 07/22/2018 Obesity 03/10/2023 Primary osteoarthritis, left ankle and foot 03/10/2023 PTSD (post-traumatic stress disorder) ([facility]) 06/16/2018 Recurrent epistaxis 03/10/2023 Type 2 diabetes mellitus without complication ([facility]) 11/10/2017 Well woman exam with routine gynecological exam 05/25/2023 Type 2 diabetes mellitus with hyperglycemia ([facility]) 02/11/2024 Vitamin D deficiency, unspecified 02/11/2024 Hyperlipidemia, unspecified ([facility]) 02/11/2024 Resolved Ambulatory Problems Diagnosis Date Noted Hot flashes 03/10/2023 Postoperative abscess 09/28/2016 Open wound of toe without complication 03/10/2023 Disorder of sacrum 01/29/2023 Macromastia 10/08/2023 Mass of upper outer quadrant of right breast 06/02/2023 Symptomatic mammary hypertrophy 06/02/2023 Attention deficit hyperactivity disorder ([facility]) 04/27/2024 Circadian rhythm sleep disorder, shift work type 04/27/2024 Impulse control disorder ([facility]) 04/27/2024 Mixed bipolar affective disorder, moderate ([facility]) 04/27/2024 Past Medical History: Diagnosis Date Bipolar disorder ([facility]) Body mass index (BMI) of 36.0 to 36.9 Cholecystitis 2017 Controlled type 2 diabetes mellitus without complication, without long-term current use of insulin ([facility]) Gastritis 2017 GERD (gastroesophageal reflux disease) Hyperlipemia ([facility]) Insertion of Nexplanon Iron deficiency anemia Kidney stones OCD (obsessive compulsive disorder) ([facility]) Seasonal allergies Umbilical hernia 2017 Vitamin D deficiency HISTORY PAST MEDICAL HISTORY SOCIAL HISTORY Past Medical History: Diagnosis Date Anemia Attention deficit hyperactivity disorder ([facility]) 04/27/2024 Bipolar disorder ([facility]) Body mass index (BMI) of 36.0 to 36.9 Cholecystitis 2017 Acute/chronic Chronic rhinitis Circadian rhythm sleep disorder, shift work type 04/27/2024 Controlled type 2 diabetes mellitus without complication, without long-term current use of insulin ([facility]) Disorder of sacrum 01/29/2023 Gastritis 2017 GERD (gastroesophageal reflux disease) Hyperlipemia ([facility]) Impulse control disorder ([facility]) 04/27/2024 Insertion of Nexplanon Iron deficiency anemia Kidney stones Macromastia 10/08/2023 Mass of upper outer quadrant of right breast 06/02/2023 Mixed bipolar affective disorder, moderate (CMS/HCC) 04/27/2024 OCD (obsessive compulsive disorder) ([facility]) Open wound of toe without complication 03/10/2023 PTSD (post-traumatic stress disorder) ([facility]) Recurrent epistaxis Seasonal allergies Symptomatic mammary hypertrophy 06/02/2023 Type 2 diabetes mellitus with hyperglycemia ([facility]) Umbilical hernia 2017 Vitamin D deficiency Social [...] nursing note reviewed. Exam conducted with a tire wrapper present. Vitals: Estimated body mass index is [...] of: Roel Garber DO documented in this encounterSainte Genevieve County Memorial [id number] History of Present illness Narrative* Shira Cardoso [...] Gastritis 2017 GERD (gastroesophageal reflux disease) Hyperlipemia ([facility]) Impulse control disorder ([facility]) 04/27/2024 Insertion of Nexplanon Iron deficiency anemia Kidney stones Macromastia 10/08/2023 Mass of upper outer quadrant of right breast 06/02/2023 Mixed bipolar affective disorder, moderate ([facility]) 04/27/2024 OCD (obsessive compulsive disorder) ([facility]) Open wound of toe without complication 03/10/2023 PTSD (post-traumatic stress disorder) ([facility]) Recurrent epistaxis Seasonal allergies Symptomatic mammary hypertrophy 06/02/2023 Type 2 diabetes mellitus with hyperglycemia ([facility]) Umbilical hernia 2017 Vitamin D deficiency Current [...] Insecurity: No Food Insecurity (10/05/2023) Received from [facility] [employer] Hunger Screening Within the past 12 months [...] Patient encouraged to follow up with her human performance professor regarding the significant evidence of laryngopharyngeal reflux noted on endoscopy documented in this encounterSainte Genevieve County Memorial [id number] History of Present illness Narrative* Bela Ribeiro, BROACHING MACHINE SET UP OPERATOR - 04/18/2024 10:50 AM EST Reason for [...] and foot 03/10/2023 PTSD (post-traumatic stress disorder) ([facility]) 06/16/2018 Recurrent epistaxis 03/10/2023 Type 2 diabetes mellitus without complication ([facility]) 11/10/2017 Well woman exam with routine gynecological exam 05/25/2023 Type 2 diabetes mellitus with hyperglycemia ([facility]) 02/11/2024 Vitamin D deficiency, unspecified 02/11/2024 Hyperlipidemia, unspecified ([facility]) 02/11/2024 Resolved Ambulatory Problems Diagnosis Date Noted Hot flashes 03/10/2023 Postoperative abscess 09/28/2016 Open wound of toe without complication 03/10/2023 Disorder of sacrum 01/29/2023 Macromastia 10/08/2023 Mass of upper outer quadrant of right breast 06/02/2023 Symptomatic mammary hypertrophy 06/02/2023 Past Medical History: Diagnosis Date Bipolar disorder ([facility]) Body mass index (BMI) of 36.0 to 36.9 Cholecystitis 2017 Controlled type 2 diabetes mellitus without complication, without long-term current use of insulin ([facility]) Gastritis 2017 GERD (gastroesophageal reflux disease) Hyperlipemia ([facility]) Insertion of Nexplanon Iron deficiency anemia Kidney stones OCD (obsessive compulsive disorder) ([facility]) Seasonal allergies Umbilical hernia 2017 Vitamin D deficiency HISTORY PAST MEDICAL HISTORY SOCIAL HISTORY Past Medical History: Diagnosis Date Anemia Bipolar disorder ([facility]) Body mass index (BMI) of 36.0 to 36.9 Cholecystitis 2017 Acute/chronic Chronic rhinitis Controlled type 2 diabetes mellitus without complication, without long-term current use of insulin ([facility]) Disorder of sacrum 01/29/2023 Gastritis 2017 GERD (gastroesophageal reflux disease) Hyperlipemia ([facility]) Insertion of Nexplanon Iron deficiency anemia Kidney stones Macromastia 10/08/2023 Mass of upper outer quadrant of right breast 06/02/2023 OCD (obsessive compulsive disorder) ([facility]) Open wound of toe without complication 03/10/2023 PTSD (post-traumatic stress disorder) ([facility]) Recurrent epistaxis Seasonal allergies Symptomatic mammary hypertrophy 06/02/2023 Type 2 diabetes mellitus with hyperglycemia ([facility]) Umbilical hernia 2017 Vitamin D deficiency Social [...] of: Roel Garber DO documented in this encounterSainte Genevieve County Memorial [id number] Telephone encounter Note* Telephone Encounter - Austin Perkins - 04/13/2024 1:29 PM EST PA needed for mounjaro. Thank you! [facility] [id number] Miscellaneous Notes* Telephone Encounter - Austin Gregorio - 04/13/2024 1:29 PM EST PA needed for mounjaro. Thank you! documented in this encounterSainte Genevieve County Memorial HospitalPjnydlrskr97-00-0220 History of Present illness Narrative* Cleo Zambrano [...] yet. HPI: 06/2020 New patient sent from [facility] for uncontrolled diabetes. A1c of [...] Medical History: Diagnosis Date Anemia Bipolar disorder ([facility]) Body mass index (BMI) of 36.0 to 36.9 Cholecystitis 2017 Acute/chronic Chronic rhinitis Controlled type 2 diabetes mellitus without complication, without long-term current use of insulin ([facility]) Disorder of sacrum 01/29/2023 Gastritis 2017 GERD (gastroesophageal reflux disease) Hyperlipemia ([facility]) Insertion of Nexplanon Iron deficiency anemia Kidney stones Macromastia 10/08/2023 Mass of upper outer quadrant of right breast 06/02/2023 OCD (obsessive compulsive disorder) ([facility]) Open wound of toe without complication 03/10/2023 PTSD (post-traumatic stress disorder) ([facility]) Recurrent epistaxis Seasonal allergies Symptomatic mammary hypertrophy 06/02/2023 Type 2 diabetes mellitus with hyperglycemia ([facility]) Umbilical hernia 2017 Vitamin D deficiency Past [...] 2 diabetes mellitus without complication, unspecified whether residential insulin use ([facility]) - POCT glycosylated hemoglobin (Hb A1C) docked [...] exercise reviewed with the patient Hyperlipemia, mixed ([facility]) Class 2 severe obesity due to excess calories with serious comorbidity and body mass index (BMI) of39.0 to 39.9 in adult ([facility]) Follow up in about 4 months (around 08/05/2024). documented in this encounterSainte Genevieve County Memorial [id number] Telephone encounter Note* Telephone Encounter - Austin Perkins - 02/16/2024 10:05 AM EST Pt would like ot know if you can try to get the ozempic approved again. She's gained 20lbs on trulicity. [facility] [id number] Miscellaneous Notes* Telephone Encounter - Austin Finneyarthy - 02/16/2024 10:05 AM EST Pt would like ot know if you can try to get the ozempic approved again. She's gained 20lbs on trulicity. documented in this encounterSainte Genevieve County Memorial [id number] History of Present illness Narrative* Jan Olmstead, PT - 02/09/2024 11:15 AM EST [facility] Inpatient/Observation/Outpatient Rehabilitation Date: 02/09/2024 Patient Name: Karma Whitehead [x] Inpatient Acute/Observation [] Outpatient : 1980 02/16/24 Plan of Care/Recert ends [x] Pt no showed for scheduled appointment Patient was called and reported she is not feeling well. She reports she has upcoming cardiac testing. She reports she will call to reschedule when she's feeling better. Jan Olmstead PT, DPT, OCS, Cert. DN Date: 02/09/2024 documented in this encounterBon [facility] Hospital Discharge instructions* Discharge Instructions* Tirso Junior DO - 01/13/2024 5:40 PM EST Increase your fluid intake. Follow-up with your doctor to discuss your medications especially the gabapentin and cyclobenzaprine which can certainly make you feel tired and groggy all the time. * Attachments The following attachments cannot be sent through Care Everywhere. * Dizziness ([place]) documented in this encounterBon [facility]09-30-2024 Telephone encounter Note* Telephone Encounter - Filomena [...] believes that the device is MRI compatible. [facility] [id number] Miscellaneous Notes* Telephone Encounter - Filomena Evans [...] Inspire device. Her BMI is 35.96, will [facility] allow this BMI Her HST is from 04/2022, does need this updated Will she be able to have MRIs If all of this is ok we will send for Inspire consult We will need to call her with an update documented in this encounterSainte Genevieve County Memorial HospitalIuaoqarqqk95-12-3406 Telephone encounter Note* Telephone Encounter - Brittany Neville NP - 11/30/2023 11:11 AM EDT Please call Dr. Brito office and ask the following questions in regards to Inspire device. Her BMI is 35.96, will [facility] [place] allow this BMI Her HST is from 04/2022, does need this updated Will she be able to have MRIs If all of this is ok we will send for Inspire consult We will need to call her with an update [facility] HospitalNsfqhiainj65-29-0744 History of Present illness Narrative* Brittany Neville [...] Medical History: Diagnosis Date Anemia Bipolar disorder ([facility]) Body mass index (BMI) of 36.0 to 36.9 Cholecystitis 2017 Acute/chronic Chronic rhinitis Controlled type 2 diabetes mellitus without complication, without long-term current use of insulin ([facility]) Gastritis 2017 GERD (gastroesophageal reflux disease) Hyperlipemia ([facility]) Insertion of Nexplanon Iron deficiency anemia Kidney stones OCD (obsessive compulsive disorder) ([facility]) Open wound of toe without complication 03/10/2023 PTSD (post-traumatic stress disorder) ([facility]) Recurrent epistaxis Seasonal allergies Umbilical hernia 2017 [...] on. She understands the risk of stroke, MA and without wearing it. She states she [...] She did switch to a provider in [place]. They did change her zanaflex and mobic [...] and see if BMI of 36 with [facility] [place] is feasible for Inspire device, if it [...] was counseled on the risks of stroke, MA, and sudden with JADON, along with the need for compliance with the CPAP/BiPAP treatment. Return to clinic: 3 months documented in this encounterSainte Genevieve County Memorial HospitalElzknmcqlw07-47-9845 History of Present illness Narrative* Jan Olmstead, PT - 10/20/2023 9:45 AM EDT [facility] Outpatient Physical Therapy Daily Note Patient: Karma Whitehead : 1980 CSN #: [id number] Referring Physician: Shawna Mcfadden DO Date: 10/20/2023 Treatment Diagnosis: LBP, cervical spine pain Onset Date: 02/18/23 PT Insurance Information: [employer] Total # of Visits Approved: 32 [...] cervical area and her LB area.-met Manager Access Goals Time Frame for Manager Access Goals : 6 visits Manager Access Goal 1: Pt will be independent and compliant with exercise while maintaining improved posture 50% of the time - not met Detention Goal 2: Pt will be able to perform full cervical ROM without increase complaints of baseline pain with initiation to demonstrate imporved control of pain -NOT MET: continued cervical spine pain. Manager Access Goal 3: Pt will report 40% improvement in overall complaints and improved tolerance to her job tasks - 40% improved. Manager Access Goal 4: Pt kvng UE strength will be 5/5 without increasing pain complaints to assist in tolerance of lifting and carrying -PARTIALLY MET 4+/5 grossly. Minutes Tracking: Time In: 0945 Time Out: 1030 Minutes: 45 Timed Code Treatment Minutes: 43 Minutes Jan Olmstead PT, DPT, OCS, Cert. DN Date: 10/20/2023 documented in this encounterBON [facility]08-[facility] History of Present illness Narrative* Dwayne Khoury MD - 10/08/2023 9:00 AM EDT [facility] Plastic & Reconstructive Surgery [address] Office Dwayne Khoury MD, PhD Caryl Mao, SECURITIES UNDERWRITER-FELT CHECKER Flori Harmon PA-C Plastic Surgery New Patient Consultation Note Reason for visit : Chief Complaint Patient presents with New Patient History of present illness: Karma Banegas 43 y.o. is here today to discuss bilateral breast reduction. She has been referred by Dr. Cox. She notes that she has experienced large [...] lymph nodes for which she saw Dr. Cox who felt this was most consistent with [...] mass follow up Ultrasound was done in [place] the nodule was noted but seemed consistent with a lymph node. Breast size has remained the same with weight loss Family history is positive for breast disease and breast cancer in her maternal grandmother Did she have children did breast feed Past Medical History: Past Medical History: Diagnosis Date Anxiety Asthma Back pain Bipolar 1 disorder ([facility]) Breast disorder enlarged lymph nodes in both breast Carpal tunnel syndrome Chronic pain disorder Deep vein thrombosis ([facility]) blood clot in left arm Dental disease [...] night Type 2 diabetes mellitus without complication ([facility]) 11/10/2017 Visual impairment Past Surgical History: Past Surgical History: Procedure Laterality Date ANKLE SURGERY Left x2 ARTHROSCOPY SHOULDER WITH ROTATOR CUFF REPAIR Right 05/15/2022 Performed by Ana Paula Ingram MD at [facility] DEBRIDEMENT Right 05/15/2022 Performed by Ana Paula Ingram MD at [facility] DECOMPRESSION OF SUBACROMIAL SPACE WITH PARTIAL ACROMIOPLASTY Right 05/15/2022 Performed by Ana Paula Ingram MD at [facility] INJECTION BLOCK EPIDURAL STEROID LUMBAR/SACRAL: L 4/5 WU N/A 04/22/2021 Performed by Zac Silver MD at [facility] INJECTION BLOCK SACROILIAC JOINT Left 03/27/2023 Performed by Zac Silver MD at [facility] INJECTION CERVICAL OR THORACIC EPIDURAL BLOCK WITH STEROIDS: C67 WU N/A 01/29/2018 Performed by Zac Silver MD at [facility] INJECTION LUMBAR OR SACRAL EPIDURAL BLOCK WITH STEROIDS: L45 WU N/A 10/15/2018 Performed by Zac Silver MD at [facility] INJECTION MEDIAL BRANCH NERVE BLOCK: bilat L45 51 Bilateral 07/30/2018 Performed by Zac Silver MD at [facility] INJECTION SPINE TRANSFORAMINAL: left C 5,6 Nroot Left 01/09/2023 Performed by Zac Silver MD at [facility] LAPAROSCOPIC CHOLECYSTECTOMY N/A 09/16/2016 Performed by Juan Ramon Jean MD at [facility] LIVER BIOPSY EMA PROCEDURE Right 05/15/2022 Performed by Ana Paula Ingram MD at [facility] NASAL SURGERY REPAIR HERNIA UMBILICAL 09/16/2016 Performed by Juan Ramon Jean MD at [facility] TONSILLECTOMY Allergies: Allergies Allergen Reactions Metformin [...] on 04/28/2023), Disp: 30 tablet, Rfl: 0 mdlvbkdf-ytxx-VL-calcium &mins (THERAGRAN-M) 9 mg iron-400 mcg tablet, [...] nipple: 25 Areolar Diameter: 4.5 6 Female tire wrapper present: yes. Impression : No diagnosis found. 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 Dwayne Khoury MD, PhD [facility] Total time spent was 30 minutes: Preparing to see the patient (e.g., review of tests) Obtaining and/or reviewing separately obtained history Performing a medically appropriate examination and/or evaluation Counseling and educating the patient/family/caregiver Ordering medications, tests, or procedures Referring and communicating with other health health care attorney (not separately reported) Documenting clinical information in the electronic or other health record Independently interpreting results (not separately reported) and communicating results to the patient/family/caregiver Care coordination (not separately reported) Please note that portions of this note were generated using voice recognition [employer] dictation software. Although every effort was made to ensure the accuracy of this automated electric motor assembler, some errors in electric motor assembler may have occurred. documented in this encounterWVUMedicine Barnesville HospitalWorld Procurement International [id number] History of Present illness Narrative* Filomena Raphael [...] appt. documented in this encounterBON [facility]07-09-2024 Miscellaneous Notes* Telephone Encounter - Argenis Storm RN - 09/08/2023 2:28 PM EDT Patient is asking for an increase in the Cymbalta. She is currently taking 30 mg daily and states it is no longer giving her relief. Patient is also requesting work restrictions to not lift any more than 20 lbs. She works at [employer] and it is difficult for her to [...] Will call back tomorrow. documented in this encounterFost[facility]07-[facility]-2024 Telephone encounter Note* Telephone Encounter - Argenis Storm RN - 09/08/2023 2:28 PM EDT Patient is asking for an increase in the Cymbalta. She is currently taking 30 mg daily and states it is no longer giving her relief. Patient is also requesting work restrictions to not lift any more than 20 lbs. She works at [employer] and it is difficult for her to lift the pop and other items overhead. Patient did make an appointment for 09/24/23 to be re-evaluated for a lumbar MBB that was denied. She has completed PT and dry needling. [facility]07-09-20[facility] Telephone encounter Note* Telephone Encounter - UMESH Hodge - 09/08/2023 2:28 PM EDT Is she still on fluoxetine? [facility]07-09-2024 Telephone encounter Note* Telephone Encounter - Patricia Clay RN - 09/08/2023 2:28 PM EDT Patient was called and states that she is on 60 mg Fluoxetine. [facility]07-09-2024 Telephone encounter Note* Telephone Encounter - UMESH Hodge - 09/08/2023 2:28 PM EDT I am not willing to escalate cymbalta due to higher dose of fluoxetine. [facility]07-09-2024 Telephone encounter Note* Telephone Encounter - Patricia Clay RN - 09/08/2023 2:28 PM EDT Call placed to patient to inform her of provider's response and to inform her that a note has been written with work restrictions. Patient answered the phone but continued a conversation with someoneon her end of the phone. Will call back tomorrow. [facility] HospitalCloud AmenityNorwalk Memorial [id number] History of Present illness Narrative* Kofi Villegas Rena, PT - 08/26/2023 2:30 PM EDT [facility] Outpatient Physical Therapy Daily Note Patient: Karma Whitehead : 1980 CSN #: [id number] Referring Physician: Shawna Mcfadden DO Date: 08/26/2023 Diagnosis: Z76.89 - Persons encountering health services in other specified circumstances Treatment Diagnosis: pain in cervical and LB Onset Date: 02/18/23 PT Insurance Information: [employer] Total # of Visits Approved: 24 Per [...] the cervical area and her LB area.-met Detention Goals Time Frame for Manager Access Goals : 6 visits Detention Goal 1: Pt will be independent and compliant with exercise while maintaining improved posture 50% of the time. Detention Goal 2: Pt will be able to perform full cervical ROM without increase complaints of baseline pain with initiation to demonstrate imporved control of pain. Manager Access Goal 3: Pt will report 40% improvement in overall complaints and improved tolerance to her job tasks. Minutes Tracking: Time In: 1430 Time Out: 1500 Minutes: 30 Timed Code Treatment Minutes: 29 Minutes Kofi Villegas, PT, DPT Date: 08/26/2023 documented in this encounterBON MER[facility]06-21-2024 History of Present illness Narrative* Filomena Raphael - 08/21/2023 10:45 AM EDT Physical Therapy Disregard the no show note on 08/17. This was added in error. * Jan Olmstead PT - 08/21/2023 10:45 AM EDT [facility] Outpatient Physical Therapy Daily Note Patient: Karma Whitehead : 1980 CSN #: [id number] Referring Physician: Shawna Mcfadden DO Date: 08/21/2023 Treatment Diagnosis: pain in cervical and LB Onset Date: 02/18/23 PT Insurance Information: [employer] Plan Total # of Visits Approved: 24 [...] cervical area and her LB area. Manager Access Goals Time Frame for Detention Goals : 6 visits Manager Access Goal 1: Pt will be independent and compliant with exercise while maintaining improved posture 50% of the time. Detention Goal 2: Pt will be able to perform full cervical ROM without increase complaints of baseline pain with initiation to demonstrate imporved control of pain. Manager Access Goal 3: Pt will report 40% improvement in overall complaints and improved tolerance to her job tasks. Detention Goal 4: Pt kvng UE strength will be 5/5 without increasing pain complaints to assist in tolerance of lifting and carrying. Minutes Tracking: Time In: 1045 Time Out: 1116 Minutes: 31 Timed Code Treatment Minutes: 29 Minutes Jan Olmstead PT, DPT Date: 08/21/2023 documented in this encounterBON MER[facility]06-19-2024 Miscellaneous Notes* Telephone Encounter - Arcelia Corona CNA - 08/19/2023 4:44 PM EDT Karma left a voicemail requesting a refill and an increased dose for Cymbalta documented in this encounterFostoria City Hospital06-19-2024 Telephone encounter Note* Telephone Encounter - Arcelia Corona CNA - 08/19/2023 4:44 PM EDT Karma left a voicemail requesting a refill and an increased dose for Cymbalta [facility] [employer] [id number] History of Present illness Narrative* Jan Olmstead, PT - 08/11/2023 1:15 PM EDT [facility] Outpatient Physical Therapy Daily Note Patient: Karma Whitehead : 1980 CSN #: [id number] Referring Physician: Shawna Mcfadden DO Date: 08/11/2023 Diagnosis: Z76.89 - Persons encountering health services in other specified circumstances Treatment Diagnosis: pain in cervical and LB Onset Date: 02/18/23 PT Insurance Information: [employer] [facility] Total # of Visits Approved: 24 [...] cervical area and her LB area. Manager Access Goals Time Frame for Manager Access Goals : 6 visits Detention Goal 1: Pt will be independent and compliant with exercise while maintaining improved posture 50% of the time. Detention Goal 2: Pt will be able to perform full cervical ROM without increase complaints of baseline pain with initiation to demonstrate imporved control of pain. Detention Goal 3: Pt will report 40% improvement in overall complaints and improved tolerance to her job tasks. Detention Goal 4: Pt kvng UE strength will be 5/5 without increasing pain complaints to assist in tolerance of lifting and carrying. Minutes Tracking: Time In: 1330 Time Out: 1400 Minutes: 30 Timed Code Treatment Minutes: 28 Minutes Jan Olmstead PT, DPT Date: 08/11/2023 documented in this encounterBON MER[facility]05-14-2024 History of Present illness Narrative* Filomena Raphael - 07/14/2023 11:15 AM EDT Physical Therapy [facility] Inpatient/Observation/Outpatient Rehabilitation Date: 07/14/2023 Patient Name: Karma [...] does not require skilled services due to: Therapist/Metal Container Maker will attempt to see this patient, at our earliest opportunity. Filomena Raphael Date: 07/14/2023 documented in this encounterB[facility] Miscellaneous Notes* Telephone Encounter - Maty [...] when I put in for the appeal fannie had called me and informed me patient fannie had laps. Patient was sent a letter per fannie.Patient let me know that lailawyattteresa is now valid ok to put back in for the procedure. Will be resubmitting for the procedure today. documented in this encounterF[facility] Telephone encounter Note* Telephone Encounter - Maty Fulton RN - 07/07/2023 9:10 AM EDT Pt is upset, she has not received any call about scheduling procedure. She requests update on insurance authorization re: MBDonavan. Last seen 04/28/2023. Please call patient today with an update on insurance information. Patient is requesting to increase cymbalta 30 mg daily which is helping with neuropathy and tingling in bilateral hands. [facility]05-07-[facility] Telephone encounter Note* Telephone Encounter - Alfredito William - 07/07/2023 9:10 AM EDT Contacted patient letting her know back when I put in for the appeal fannie had called me and informed me patient fannie had laps. Patient was sent a letter per fannie.Patient let me know that tessa is now valid ok to put back in for the procedure. Will be resubmitting for the procedure today. [facility]04-02-[facility] History of Present illness Narrative* ADIA [...] 42G Previous breast surgery: no * Deepika Cox MD - 06/02/2023 2:30 PM EDT I [...] or lymphadenopathy. I reviewed notes from her syrup mixer assistant dated 05/05/2023, imaging including mammogram and ultrasounddated 03/16/2023 and 03/25/2023, history form dated 06/02/2023. Past Medical History Past Medical History: Diagnosis Date Anxiety Asthma Back pain Bipolar 1 disorder ([facility]) Breast disorder enlarged lymph nodes in both breast Carpal tunnel syndrome Chronic pain disorder Deep vein thrombosis ([facility] blood clot in left arm Dental disease [...] night Type 2 diabetes mellitus without complication ([facility]) 11/10/2017 Visual impairment Past Surgical History Past Surgical History: Procedure Laterality Date ANKLE SURGERY Left x2 ARTHROSCOPY SHOULDER WITH ROTATOR CUFF REPAIR Right 05/15/2022 Performed by Ana Paula Ingram MD at [facility] DEBRIDEMENT Right 05/15/2022 Performed by Ana Paula Ingram MD at [facility] DECOMPRESSION OF SUBACROMIAL SPACE WITH PARTIAL ACROMIOPLASTY Right 05/15/2022 Performed by Ana Paula Ingram MD at [facility] INJECTION BLOCK EPIDURAL STEROID LUMBAR/SACRAL: L 4/5 WU N/A 04/22/2021 Performed by Zac Silver MD at [facility] INJECTION BLOCK SACROILIAC JOINT Left 03/27/2023 Performed by Zac Silver MD at [facility] CERVICAL OR THORACIC EPIDURAL BLOCK WITH STEROIDS: C67 WU N/A 01/29/2018 Performed by Zac Silver MD at [facility] LUMBAR OR SACRAL EPIDURAL BLOCK WITH STEROIDS: L45 WU N/A 10/15/2018 Performed by Zac Silver MD at [facility] MEDIAL BRANCH NERVE BLOCK: bilat L45 51 Bilateral 07/30/2018 Performed by Zac Silver MD at [facility] SPINE TRANSFORAMINAL: left C 5,6 Nroot Left 01/09/2023 Performed by Zac Silver MD at [facility] LAPAROSCOPIC CHOLECYSTECTOMY N/A 09/16/2016 Performed by Juan Ramon Jean MD at [facility] LIVER BIOPSY EMA PROCEDURE Right 05/15/2022 Performed by Ana Paula Ingram MD at [facility] NASAL SURGERY REPAIR HERNIA UMBILICAL 09/16/2016 Performed by Juan Ramon Jean MD at [facility] TONSILLECTOMY Family History Family History [...] on 04/28/2023), Disp: 30 tablet, Rfl: 0 uujvhakp-rclo-IC-calcium &mins (THERAGRAN-M) 9 mg iron-400 mcg tablet, [...] a bilateral screening mammogram on 03/16/2023 through [facility]. Her breasttissue is almost entirely fatty. There was a 1 cm mass in the posterior upper-outer right breast 17cm from the nipple. They thought this was likely a lymph node but recommended that she return for additional imaging. She had the imaging done in [place]. They did a right diagnostic mammogram and [...] me with any concerns. documented in this encounterFostoria [facility]03-12-2024 Miscellaneous Notes* Telephone Encounter - Ifrah Desouza - 05/12/2023 10:56 AM EDT Spoke with patient and scheduled with Dr. Cox 4/2. Patient voiced understanding of appointment details. Patient was offered sooner dates but declined per her availability. documented in this encounterFostoria City Hospital03-12-2024 Telephone encounter Note* Telephone Encounter - Ifrah Desouza - 05/12/2023 10:56 AM EDT Spoke with patient and scheduled with Dr. Cox 4/2. Patient voiced understanding of appointment details. Patient was offered sooner dates but declined per her availability. [facility]02-29-[facility] Miscellaneous Notes* Telephone Encounter - Maty Fulton RN - 04/30/2023 1:28 PM EST Last Office Visit: 04/28/2023 Next Office Visit: Visit date not found Last Urine Drug Screen: No results found for: BENZOSCRN OARRS appropriate documented in this encounterFostoria City Hospital02-29-2024 Telephone encounter Note* Telephone Encounter - Maty Fulton RN - 04/30/2023 1:28 PM EST Last Office Visit: 04/28/2023 Next Office Visit: Visit date not found Last Urine Drug Screen: No results found for: BENZOSCRN OARRS appropriate [facility]02-27-[facility] History of Present illness Narrative* UMESH Hodge - 04/28/2023 10:45 AM EST [facility] [address] [place] [address] Patient: Karma Banegas Sex: female : 1980 [...] last visit for 11/05/22) at [facility] with no relief Back: 10/15/18 L4/5 [...] Anxiety Asthma Back pain Bipolar 1 disorder ([facility]) Breast disorder enlarged lymph nodes in both breast Carpal tunnel syndrome Chronic pain disorder Deep vein thrombosis ([facility]) blood clot in left arm Dental disease [...] night Type 2 diabetes mellitus without complication ([facility]) 11/10/2017 Visual impairment Past Surgical History: Procedure Laterality Date ANKLE SURGERY Left x2 ARTHROSCOPY SHOULDER WITH ROTATOR CUFF REPAIR Right 05/15/2022 Performed by Ana Paula Ingram MD at [facility] DEBRIDEMENT Right 05/15/2022 Performed by Ana Paula Ingram MD at [facility] DECOMPRESSION OF SUBACROMIAL SPACE WITH PARTIAL ACROMIOPLASTY Right 05/15/2022 Performed by Ana Paula Ingram MD at [facility] INJECTION BLOCK EPIDURAL STEROID LUMBAR/SACRAL: L 4/5 WU N/A 04/22/2021 Performed by Zac Silver MD at [facility] INJECTION BLOCK SACROILIAC JOINT Left 03/27/2023 Performed by Zac Silver MD at [facility] CERVICAL OR THORACIC EPIDURAL BLOCK WITH STEROIDS: C67 WU N/A 01/29/2018 Performed by Zac Silver MD at [facility] LUMBAR OR SACRAL EPIDURAL BLOCK WITH STEROIDS: L45 WU N/A 10/15/2018 Performed by Zac Silver MD at [facility] MEDIAL BRANCH NERVE BLOCK: bilat L45 51 Bilateral 07/30/2018 Performed by Zac Silver MD at [facility] SPINE TRANSFORAMINAL: left C 5,6 Nroot Left 01/09/2023 Performed by Zac Silver MD at [facility] LAPAROSCOPIC CHOLECYSTECTOMY N/A 09/16/2016 Performed by Juan Ramon Jean MD at [facility] LIVER BIOPSY EMA PROCEDURE Right 05/15/2022 Performed by Ana Paula Ingram MD at [facility] NASAL SURGERY REPAIR HERNIA UMBILICAL 09/16/2016 Performed by Juan Ramon Jean MD at [facility] TONSILLECTOMY Allergies Allergen Reactions Metformin Severe [...] UMESH Hodge 04/30/23 1141 documented in this encounterNorth Country HospitalMiracleCord [id number] Instructions* Patient Instructions* Peg Conrad CNA - [...] the nearest emergency room. documented in this encounterFostoria City Hospital02-19-2024 Hospital Discharge instructions* Discharge Instructions* Precious Urbina APRN - CNP - 04/20/2023 1:50 PM EST Increase fluid Tylenol Motrin for cough Continue home medications * Attachments The following attachments cannot be sent through Care Everywhere. * Head Injury: Closed: General Info (Moldovan) * Cervical Strain (Moldovan) documented in this encounterBON [facility]01-30-2024 Miscellaneous Notes* Telephone Encounter - Patricia [...] medications prescribed to someone other than her. Facilities Specialist reiterated this to patient. Patient's pharmacy was confirmed with her. Order pended for review and signature. documented in this encounterFostoria City Hospital01-30-2024 Telephone encounter Note* Telephone Encounter - Patricia [...] are prescribed to someone other than her. [facility]01-30-[facility] Telephone encounter Note* Telephone Encounter - UMESH Hodge - 03/31/2023 9:30 AM EST Is she still taking prozac? What dosage? Any other antidepressants? [facility]01-30-2024 Telephone encounter Note* Telephone Encounter - Patricia Clay RN - 03/31/2023 9:30 AM EST Call placed to patient to confirm whether or not she is taking Prozac or other antidepressants. Patient states she is taking 40 mg Prozac daily. That is the only antidepressant that she takes. She isprescribed Latuda and Lamictal to treat Bipolar. [facility]01-30-2024 Telephone encounter Note* Telephone Encounter - UMESH Hodge - 03/31/2023 9:30 AM EST Can try cymbalta 30mg once daily [facility] [id number] Telephone encounter Note* Telephone Encounter - Patricia Clay RN - 03/31/2023 9:30 AM EST Call placed to patient to inform her of provider's response. Patient is also educated not to take medications that are prescribed to someone other than her. Patient voices that she is aware that she should not be taking medications prescribed to someone other than her. Facilities Specialist reiterated this to patient. Patient's pharmacy was confirmed with her. Order pended for review and signature. [facility]01-04-2024 Evaluation note* Encounter Date Diagnosis Assessment Notes Treatment Notes Treatment Clinical Notes Mar, Fatty liver (ICD-10 - K76.0) 5 to 10% weight loss can positively impact fatty liver Mar,Obesity (ICD-10 - E66.9)Plan, purchase and prepare healthy foods. Use shopping list, electronic shopping to curb impulse buying. Stock pantry with healthy foods. Keep fruits and vegetables accessible. Avoid bringing unhealthy foods in to the home. Plan family meals minimally 3 x per week. Decrease screen time. Mar,Elevated liver function tests (ICD-10 - R94.5) Mar,DHD (ICD-10 - F90.9)Discussed weight struggles inherent with concentration deficit. Encouraged meal planning simplicity, protein every meal, available vegetables and minimizing starch. Encourage eating breakfast with pro tein, avoiding skipping breakfast, discussed skipping breakfast sets [...] to help with visual cues when eating Mar,TSD (post-traumatic stress disorder) (ICD-10 - F43.10) Mar,Shifting sleep-work schedule, affecting sleep (ICD-10 - G47.26) [...] with PCP if no increased feelings of restfulness/vigilance during awake hours. Might necessitate sleep adjunct. Mar,eactive hypoglycemia (ICD-10 - E16.1)Sees ENDO, possible pancreatic fatigue. Discussed how diabetes II delayed or avoided with lifestylechanges such as, losing weight, being active, improving dietary intake. Discussed the risks for diabetes. Explained that weight loss of 5-10% can have significant impact. Consistent with weight management recommendations, encouraged diet rich in fruits, vegetables, low fat dairy, low in red meat sweets and refined grains. Stay away from soda and fruit juice. Increase activity 30 minutes most daysof the week. Mar,iabetes mellitus with hyperglycemia (ICD-10 - E11.65)request notes from Dr. Marroquin Mar,History of kidney stones (ICD-10 - Z87.442)avoid topiramate for weight loss Mar,MI 37.0-37.9, adult (ICD-10 - Z68.37) Mar,OtherI have spent 30 minutes with this patient and over 50% of the visit was counseling done by myself, Rhina ROBERTSON. [employer] Other 01-01-2024 Hospital Discharge instructions* Discharge Instructions* Sil Sullivan DO - 03/02/2023 7:49 PM EST Please follow-up with your GI doctor, trial enema at home, return to the ER for worsening abdominalpain, inability to pass gas, or nausea, vomiting * Attachments The following attachments cannot be sent through Care Everywhere. * Constipation ([place]oldovan) documented in this encounterBON [facility]12-[facility]23 Miscellaneous Notes* Telephone Encounter - Argenis [...] when she was under his care in [place]. She is currently taking Meloxicam that helps [...] continues to want to speak with Dr. iSlver. Patient was advised if she is not [...] She states whatever . documented in this encounterFostoria City Hospital12-22-2023 Telephone encounter Note* Telephone Encounter [...] when she was under his care in [place]. She is currently taking Meloxicam that helps [...] add Dr. Silver on the note. PVU. [facility]12-22-2023 Telephone encounter Note* Telephone Encounter - Zac Silver MD - 02/20/2023 10:04 AM EST Discussed with nurse, I agree with Fartun's treatment plan going forward. [facility]12-22-2023 Telephone encounter Note* Telephone Encounter - UMESH Hodge - 02/20/2023 10:04 AM EST No Rx for tramadol. I have never written prescription for bra so I would not know how to proceed with anything like that. [facility]12-22-2023 Telephone encounter Note* Telephone Encounter - Argenis Storm RN - 02/20/2023 10:04 AM EST Patient aware of response. She states whatever . [facility]12-20-2023 Evaluation note* Encounter Date Diagnosis Assessment Notes Treatment Notes Treatment Clinical Notes Jan, Constipation, unspecified consti pation type (ICD-10 - K59.00) Jan,onstipation (ICD-10 - K59.00) [employer] Other 12-12-2023 Miscellaneous Notes* Telephone Encounter - [...] and has f/u appt documented in this encounterFostoria City Hospital12-12-2023 Telephone encounter Note* Telephone Encounter [...] pain is now related to sacroiliac joint. [facility]12-[facility] Telephone encounter Note* Telephone Encounter [...] sufficient reason to deny the current request. [facility]12-12-[facility] Telephone encounter Note* Telephone Encounter - Alfredito William - 02/10/2023 8:18 AM EST [employer] [id number] Telephone encounter Note* Telephone Encounter - Maty Fulton RN - 02/10/2023 8:18 AM EST Pt is scheduled 03/27 for procedure and has f/u appt [facility] [employer] [id number] Evaluation note* Encounter Date Diagnosis Assessment Notes Treatment Notes Treatment Clinical Notes Jan, Constipation (ICD-10 - K59.00) The patient states she has had a small improvement in her constipation. The patient is using Colasethree times a day. She states she is [...] had intermittent rectal bleeding with the constipation butnot on a regular basis. We will proceed with a colonoscopy at this time. Jan,bdominal pain (ICD-10 - R10.9) Jan,Rectal bleed (ICD-10 - K62.5) [employer] Other 11-16-2023 Evaluation note* Encounter Date Diagnosis Assessment Notes Treatment Notes Treatment Clinical Notes Dec, Fatty liver (ICD-10 - K76.0) 5 to 10% weight loss can positively impact fatty liver Dec,Obesity (ICD-10 - E66.9)Plan, purchase and prepare healthy foods. Use shopping list, electronic shopping to curb impulse buying. Stock pantry with healthy foods. Keep fruits and vegetables accessible. Avoid bringing unhealthy foods in to the home. Plan family meals minimally 3 x per week. Decrease screen time. Dec,Elevated liver function tests (ICD-10 - R94.5) Dec,DHD (ICD-10 - F90.9)Discussed weight struggles inherent with concentration deficit. Encouraged meal planning simplicity, protein every meal, available vegetables and minimizing starch. Encourage eating breakfast with pro tein, avoiding skipping breakfast, discussed skipping breakfast sets [...] to help with visual cues when eating Dec,TSD (post-traumatic stress disorder) (ICD-10 - F43.10) Dec,Shifting sleep-work schedule, affecting sleep (ICD-10 - G47.26) [...] with PCP if no increased feelings of restfulness/vigilance during awake hours. Might necessitate sleep adjunct. Dec,Reactive hypoglycemia (ICD-10 - E16.1)Sees ENDO, possible pancreatic fatigue. Discussed how diabetes II delayed or avoided with lifestylechanges such as, losing weight, being active, improving dietary intake. Discussed the risks for diabetes. Explained that weight loss of 5-10% can have significant impact. Consistent with weight management recommendations, encouraged diet rich in fruits, vegetables, low fat dairy, low in red meat sweets and refined grains. Stay away from soda and fruit juice. Increase activity 30 minutes most daysof the week. Dec,iabetes mellitus with hyperglycemia (ICD-10 - E11.65)request notes from Dr. Marroquin Dec,History of kidney stones (ICD-10 - Z87.442)avoid topiramate for weight loss Dec,MI 36.0-36.9,adult (ICD-10 - Z68.36) Dec,OtherI have spent 30 minutes with this patient and over 50% of the visit was counseling done by myself, Rhina ROBERTSON. [employer] Other 11-08-2023 Evaluation note* Encounter Date Diagnosis Assessment Notes Treatment Notes Treatment Clinical Notes Dec, Constipation, unspecified consti pation type (ICD-10 - K59.00) CONSTIPATION HAS BEEN ON GOING FOR YEARS. PATIENT HAS A DAILY BOWEL MOVEMENT, BUT DOES NOT FEEL IF SHE EMPTYING ALL THE WAY. PATIENT ADVISED TO START PROBIOTIC, STATES SHE WILL NOT BE ABLE TO DUE TO COST. WILL TRY TO SEND INALIGN TO PHARMACY TO SEE IF INSURANCE WILL COVER. PATIENT HAS BEEN USING DOCUSATE SODIUM 2 CAPSULES DAILY WITH SOME RELIEF. WILL HAVE PATIENT START DOCUSATE 3 CAPSULES DAILY. [employer] Other 06-29-2023 Evaluation note* Encounter Date Diagnosis Assessment Notes Treatment Notes Treatment Clinical Notes Jul, Obesity (ICD-10 - E66.9) Jul,MI 34.0-34.9,adult (ICD-10 - Z68.34) Jul,OtherSummary of Visit: (A) discussed continuing to work on small goals until stress decreases and she has the energy to increase goals (B) discussed healhtier choices at [place]- food blog reviewed (C) reviewed food storage tips for keeping produce fresh longer Patient set the following goals: - NEW: continue to choose sugar free beverages- not reviewed [employer] Other 05-30-2023 Evaluation note* Encounter Date Diagnosis Assessment Notes Treatment Notes Treatment Clinical Notes June, Fatty liver (ICD-10 - K76.0) 5 to 10% weight loss can positively impact fatty liver June,Obesity (ICD-10 - E66.9)Plan, purchase and prepare healthy foods. Use shopping list, electronic shopping to curb impulse buying. Stock pantry with healthy foods. Keep fruits and vegetables accessible. Avoid bringing unhealthy foods in to the home. Plan family meals minimally 3 x per week. Decrease screen time. June,Elevated liver function tests (ICD-10 - R94.5) June,DHD (ICD-10 - F90.9)Discussed weight struggles inherent with concentration deficit. Encouraged meal planning simplicity, protein every meal, available vegetables and minimizing starch. Encourage eating breakfast with pro tein, avoiding skipping breakfast, discussed skipping breakfast sets [...] to help with visual cues when eating June,TSD (post-traumatic stress disorder) (ICD-10 - F43.10) June,Shifting sleep-work schedule, affecting sleep (ICD-10 - G47.26) [...] with PCP if no increased feelings of restfulness/vigilance during awake hours. Might necessitate sleep adjunct. June,Reactive hypoglycemia (ICD-10 - E16.1)Sees ENDO, possible pancreatic fatigue. Discussed how diabetes II delayed or avoided with lifestylechanges such as, losing weight, being active, improving dietary intake. Discussed the risks for diabetes. Explained that weight loss of 5-10% can have significant impact. Consistent with weight management recommendations, encouraged diet rich in fruits, vegetables, low fat dairy, low in red meat sweets and refined grains. Stay away from soda and fruit juice. Increase activity 30 minutes most daysof the week. June,iabetes mellitus with hyperglycemia (ICD-10 - E11.65)request notes from Dr. Marroquin June,History of kidney stones (ICD-10 - Z87.442)avoid topiramate for weight loss June,MI 35.0-35.9,adult (ICD-10 - Z68.35) June,OtherI have spent 30 minutes with this patient and over 50% of the visit was counseling done by myself, Rhina ROBERTSON. [employer] Other 03-21-2023 Evaluation note* Encounter Date Diagnosis Assessment Notes Treatment Notes Treatment Clinical Notes Apr, Fatty liver (ICD-10 - K76.0) 5 to 10% weight loss can positively impact fatty liver Apr,Obesity (ICD-10 - E66.9)Plan, purchase and prepare healthy foods. Use shopping list, electronic shopping to curb impulse buying. Stock pantry with healthy foods. Keep fruits and vegetables accessible. Avoid bringing unhealthy foods in to the home. Plan family meals minimally 3 x per week. Decrease screen time. Apr,Elevated liver function tests (ICD-10 - R94.5) Apr,DHD (ICD-10 - F90.9)Discussed weight struggles inherent with concentration deficit. Encouraged meal planning simplicity, protein every meal, available vegetables and minimizing starch. Encourage eating breakfast with pro tein, avoiding skipping breakfast, discussed skipping breakfast sets [...] to help with visual cues when eating Apr,TSD (post-traumatic stress disorder) (ICD-10 - F43.10) Apr,Shifting sleep-work schedule, affecting sleep (ICD-10 - G47.26) [...] with PCP if no increased feelings of restfulness/vigilance during awake hours. Might necessitate sleep adjunct. Apr,Reactive hypoglycemia (ICD-10 - E16.1)Sees ENDO, possible pancreatic fatigue. Discussed how diabetes II delayed or avoided with lifestylechanges such as, losing weight, being active, improving dietary intake. Discussed the risks for diabetes. Explained that weight loss of 5-10% can have significant impact. Consistent with weight management recommendations, encouraged diet rich in fruits, vegetables, low fat dairy, low in red meat sweets and refined grains. Stay away from soda and fruit juice. Increase activity 30 minutes most daysof the week. Apr,iabetes mellitus with hyperglycemia (ICD-10 - E11.65)request notes from Dr. Marroquin Apr,History of kidney stones (ICD-10 - Z87.442)avoid topiramate for weight loss Apr,MI 34.0-34.9,adult (ICD-10 - Z68.34) Apr,OtherI have spent 30 minutes with this patient and over 50% of the visit was counseling done by myself, Rhina ROBERTSON. [employer] Other 02-07-2023 Evaluation note* Encounter Date Diagnosis Assessment Notes Treatment Notes Treatment Clinical Notes Apr, Obesity (ICD-10 - E66.9) Apr,MI 34.0-34.9,adult (ICD-10 - Z68.34) Apr,OtherSummary of Visit: (A) reviewed better choices when choosing items from a food pantry (B) discussed community resources for food and assistance (C) ideas for cookign 2x/ and utilizing leftovers for new meals Patient set the following goals: not reviewed today [employer] Other 02-07-2023 Evaluation note* Encounter Date Diagnosis Assessment Notes Treatment Notes Treatment Clinical Notes Apr, Fatty liver (ICD-10 - K76.0) 5 to 10% weight loss can positively impact fatty liver Apr,Obesity (ICD-10 - E66.9)Plan, purchase and prepare healthy foods. Use shopping list, electronic shopping to curb impulse buying. Stock pantry with healthy foods. Keep fruits and vegetables accessible. Avoid bringing unhealthy foods in to the home. Plan family meals minimally 3 x per week. Decrease screen time. Apr,Elevated liver function tests (ICD-10 - R94.5) Apr,DHD (ICD-10 - F90.9)Discussed weight struggles inherent with concentration deficit. Encouraged meal planning simplicity, protein every meal, available vegetables and minimizing starch. Encourage eating breakfast with pro tein, avoiding skipping breakfast, discussed skipping breakfast sets [...] to help with visual cues when eating Apr,TSD (post-traumatic stress disorder) (ICD-10 - F43.10) Apr,Shifting sleep-work schedule, affecting sleep (ICD-10 - G47.26) [...] with PCP if no increased feelings of restfulness/vigilance during awake hours. Might necessitate sleep adjunct. Apr,Reactive hypoglycemia (ICD-10 - E16.1)Sees ENDO, possible pancreatic fatigue. Discussed how diabetes II delayed or avoided with lifestylechanges such as, losing weight, being active, improving dietary intake. Discussed the risks for diabetes. Explained that weight loss of 5-10% can have significant impact. Consistent with weight management recommendations, encouraged diet rich in fruits, vegetables, low fat dairy, low in red meat sweets and refined grains. Stay away from soda and fruit juice. Increase activity 30 minutes most daysof the week. Apr,iabetes mellitus with hyperglycemia (ICD-10 - E11.65)request notes from Dr. Marroquin Apr,History of kidney stones (ICD-10 - Z87.442) Apr,MI 36.0-36.9,adult (ICD-10 - Z68.36) Apr,OtherI have spent 30 minutes with this patient and over 50% of the visit was counseling done by myself, Rhina ROBERTSON. [employer] Other 12-28-2022 Evaluation note* Encounter Date Diagnosis Assessment Notes Treatment Notes Treatment Clinical Notes Jan, Obesity, unspecified classification, unspecified obesity type, unspecified whether serious comorbidity present (ICD-10 - E66.9) Jan,MI 36.0-36.9,adult (ICD-10 - Z68.36) Jan,therSummary of Visit: (A) Presentation of Plate Method discussed (B) Sample meal ideas reviewed (C) exercise recommendations reviewed Patient set the following goals: - patient set personal goal using given handout. [employer] Other 12-27-2022 Evaluation note* Encounter Date Diagnosis Assessment Notes Treatment Notes Treatment Clinical Notes Jan, Fatty liver (ICD-10 - K76.0) 5 to 10% weight loss can positively impact fatty liver Jan,besity (ICD-10 - E66.9)Plan, purchase and prepare healthy foods. Use shopping list, electronic shopping to curb impulse buying. Stock pantry with healthy foods. Keep fruits and vegetables accessible. Avoid bringing unhealthy foods in to the home. Plan family meals minimally 3 x per week. Decrease screen time. Jan,Elevated liver function tests (ICD-10 - R94.5) Jan,DHD (ICD-10 - F90.9)Discussed weight struggles inherent with concentration deficit. Encouraged meal planning simplicity, protein every meal, available vegetables and minimizing starch. Encourage eating breakfast with pro tein, avoiding skipping breakfast, discussed skipping breakfast sets [...] to help with visual cues when eating Jan,TSD (post-traumatic stress disorder) (ICD-10 - F43.10) Jan,hifting sleep-work schedule, affecting sleep (ICD-10 - G47.26) [...] with PCP if no increased feelings of restfulness/vigilance during awake hours. Might necessitate sleep adjunct. Jan,eactive hypoglycemia (ICD-10 - E16.1)Sees ENDO, possible pancreatic fatigue. Discussed how diabetes II delayed or avoided with lifestylechanges such as, losing weight, being active, improving dietary intake. Discussed the risks for diabetes. Explained that weight loss of 5-10% can have significant impact. Consistent with weight management recommendations, encouraged diet rich in fruits, vegetables, low fat dairy, low in red meat sweets and refined grains. Stay away from soda and fruit juice. Increase activity 30 minutes most daysof the week. Jan,2Diabetes mellitus with hyperglycemia (ICD-10 - E11.65)request notes from Dr. Marroquin Jan,History of kidney stones (ICD-10 - Z87.442) Jan,MI 36.0-36.9,adult (ICD-10 - Z68.36) Jan,therI have spent 30 minutes with this patient and over 50% of the visit was counseling done by myself, Rhina ROBERTSON. [employer] Other 12-01-2022 NotePROCEDURE: XR ANKLE LT MIN [...] Electronically authenticated by: ONEL CLARK Date: 2022-01-29 22:30[facility]12-01-2022 NotePROCEDURE: XR ANKLE LT MIN [...] Electronically authenticated by: ONEL CLARK Date: 2022-01-29 22:30[facility]11-15-2022 Evaluation note* Encounter Date Diagnosis Assessment Notes Treatment Notes Treatment Clinical Notes Dec, BMI 39.0-39.9,adult (ICD-10 - Z6 8.39) Dec,besity (ICD-10 - E66.9)Plan, purchase and prepare healthy foods. Use shopping list, electronic shopping to curb impulse buying. Stock pantry with healthy foods. Keep fruits and vegetables accessible. Avoid bringing unhealthy foods in to the home. Plan family meals minimally 3 x per week. Decrease screen time. Dec,Fatty liver (ICD-10 - K76.0)5 to 10% weight loss can positively impact fatty liver Dec,Elevated liver function tests (ICD-10 - R94.5) Dec,DHD (ICD-10 - F90.9)Discussed weight struggles inherent with concentration deficit. Encouraged meal planning simplicity, protein every meal, available vegetables and minimizing starch. Encourage eating breakfast with pro tein, avoiding skipping breakfast, discussed skipping breakfast sets [...] to help with visual cues when eating Dec,TSD (post-traumatic stress disorder) (ICD-10 - F43.10) Dec,hifting sleep-work schedule, affecting sleep (ICD-10 - G47.26) [...] with PCP if no increased feelings of restfulness/vigilance during awake hours. Might necessitate sleep adjunct. Dec,eactive hypoglycemia (ICD-10 - E16.1)Sees ENDO, possible pancreatic fatigue. Discussed how diabetes II delayed or avoided with lifestylechanges such as, losing weight, being active, improving dietary intake. Discussed the risks for diabetes. Explained that weight loss of 5-10% can have significant impact. Consistent with weight management recommendations, encouraged diet rich in fruits, vegetables, low fat dairy, low in red meat sweets and refined grains. Stay away from soda and fruit juice. Increase activity 30 minutes most daysof the week. Dec,2Diabetes mellitus with hyperglycemia (ICD-10 - E11.65)request notes from Dr. Marroquin Dec,History of kidney stones (ICD-10 - Z87.442) Dec,therI have spent 30 minutes with this patient and over 50% of the visit was counseling done by myself, Rhina ROBERTSON. [employer] Other 10-05-2022 Evaluation note* Encounter Date Diagnosis Assessment Notes Treatment Notes Treatment Clinical Notes Nov, BMI 39.0-39.9,adult (ICD-10 - Z6 8.39) Nov,besity (ICD-10 - E66.9)Plan, purchase and prepare healthy foods. Use shopping list, electronic shopping to curb impulse buying. Stock pantry with healthy foods. Keep fruits and vegetables accessible. Avoid bringing unhealthy foods in to the home. Plan family meals minimally 3 x per week. Decrease screen time. Nov,Fatty liver (ICD-10 - K76.0)5 to 10% weight loss can positively impact fatty liver Nov,Elevated liver function tests (ICD-10 - R94.5) Nov,DHD (ICD-10 - F90.9)Discussed weight struggles inherent with concentration deficit. Encouraged meal planning simplicity, protein every meal, available vegetables and minimizing starch. Encourage eating breakfast with pro tein, avoiding skipping breakfast, discussed skipping breakfast sets [...] to help with visual cues when eating Nov,TSD (post-traumatic stress disorder) (ICD-10 - F43.10) Nov,hifting sleep-work schedule, affecting sleep (ICD-10 - G47.26) [...] with PCP if no increased feelings of restfulness/vigilance during awake hours. Might necessitate sleep adjunct. Nov,eactive hypoglycemia (ICD-10 - E16.1)Can look to pancreatic fatigue. Discussed how diabetes II delayed or avoided with lifestyle changessuch as, losing weight, being active, improving dietary intake. Discussed the risks for diabetes. Explained that weight loss of 5-10% can have significant impact. Consistent with weight management recommendations, encouraged diet rich in fruits, vegetables, low fat dairy, low in red meat sweets andrefined grains. Stay away from soda and fruit juice. Increase activity 30 minutes most days of the week. Nov,iabetes mellitus with hyperglycemia (ICD-10 - E11.65)request notes from Dr. Marroquin Nov,History of kidney stones (ICD-10 - Z87.442) Nov,therI have spent 60 minutes with this patient and over 50% of the visit was counseling done by myself, Rhina ROBERTSON. [employer] Other 08-30-2022 Evaluation note* Encounter Date Diagnosis Assessment Notes Treatment Notes Treatment Clinical Notes Sep, Fatty liver (ICD-10 - K76.0) ENCOURAGED WEIGHT LOSS Sep,besity (BMI 30-39.9) (ICD-10 - E66.9) [place] [employer] Other 08-23-2022 Hospital Discharge instructions* Discharge Instructions* Stanley Almonte PA-C - 10/22/2021 2:03 PM EDT Follow-up with primary care doctor 7 to 10 days for reevaluation. Take Motrin 800 mg as directed with food. Start eardrops left ear as directed. Promptly return to emergency department for new, changing or worsening of symptoms or other concerns. [facility] [employer] Phone: evaluation + Plan note No data available for this section [facility] Diagnosis Pilonidal cyst- Primary Pilonidal cyst without mention of abscess documented in this encounter [employer] Phone: evalbldqeh note* Diagnosis Acute diffuse otitis externa of left ear- Primary documented in this encounter [facility] [employer] Phone: evalamauxb noteNo InformationNortBerwick Hospital Center [employer] Other evaluation note* Diagnosis Constipation, unspecified constipation type- Primary documented in this encounter [facility] [employer] noteNo assessment information available [facility] Work Phone: Evaluation note* Diagnosis Closed head injury, initial encounter- Primary Fall due to slipping on ice or snow, initial encounter Acute cervical myofascial strain, initial encounter documented in this encounter [facility] [employer] note* Diagnosis Onset Date Resolution Status ADHD acuteBMI 36.0-36.9,adultacuteConstipationacuteDiabetes mellitus with hyperglycemiaacuteFatty liveracuteIBS (irritable bowel syndrome)acuteObesity acuteShifting sleep-work schedule, affecting sleepacuteConstipationacuteElevated liver function testsacuteFatty liveracuteIBS (irritable bowel syndrome)acute [facility] Work Phone: Evaluation note* Diagnosis Dizziness- Primary Dizziness and giddiness documented in this encounter [facility]* Diagnosis JADON (obstructive sleep apnea)- [...] 2 diabetes mellitus without complication, 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 ([facility])- Primary Vitamin D deficiency Weight gain Other symptoms concerning nutrition, metabolism, and development Encounter for dietary consultation Hyperlipemia, mixed ([facility]) Mixed hyperlipidemia Class 2 severe obesity due to excess calories with serious comorbidity and body mass index (BMI) of39.0 to 39.9 in adult ([facility]) documented in this encounter [facility] HealthcareEvaluation note* Diagnosis Lumbosacral spondylosis without myelopathy- Primary [facility]* Diagnosis Mass of upper outer quadrant of right breast- Primary Abnormal mammogram Abnormal mammogram, unspecified Symptomatic mammary hypertrophy [facility]* Diagnosis Macromastia- Primary Hypertrophy of breast [facility]* Diagnosis Hormone imbalance Hormone disorder Unspecified endocrine disorder Toenail fungus documented in this encounter [facility] HealthcareEvaluation note* Diagnosis Obstructive sleep apnea- Primary Obstructive sleep apnea (adult) (pediatric) Intolerance of continuous positive airway pressure (CPAP) ventilation Body mass index 34.0-34.9, adult Body Mass Index 34.0-34.9, adult documented in this encounter [facility] HealthcareEvaluation note* Diagnosis Well woman exam with routine gynecological exam Routine gynecological examination Breast cancer screening by mammogram documented in this encounter [facility] HealthcareEvaluation note* Diagnosis Onset Date Resolution Status Admit Date Constipation acuteApril 2024 9:26amFatty liveracuteApril 2024 9:26amIBS (irritable bowel syndrome)acuteApril 2024 9:26am [facility] Work Phone: Evaluation note* Diagnosis Obstructive sleep apnea- Primary Obstructive sleep apnea (adult) (pediatric) Intolerance of continuous positive airway pressure (CPAP) ventilation Class 3 severe obesity with serious comorbidity and body mass index (BMI) of 40.0 to 44.9 in adult,unspecified obesity type documented in this encounter [facility]Evaluation note* Diagnosis Nexplanon removal documented in this encounter [facility] HealthcareEvaluation note* Diagnosis Post-traumatic osteoarthritis of left ankle- Primary Midline low back pain without sciatica, unspecified chronicity documented in this encounter [facility] note* Diagnosis Itching with irritation Nexplanon removal documented in this encounter [facility] HealthcareEvaluation note* Diagnosis Type 2 diabetes mellitus without complication, 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- Primary Vitamin D deficiency Weight gain Other symptoms concerning nutrition, metabolism, and development Encounter for dietary consultation Hyperlipemia, mixed ([facility]) Mixed hyperlipidemia Class 3 severe obesity due to excess calories without serious comorbidity with body mass index (BMI) of 40.0 to 44.9 in adult documented in this encounter [facility] HealthcareEvaluation note* Diagnosis Obstructive sleep apnea- Primary Obstructive sleep apnea (adult) (pediatric) Intolerance of continuous positive airway pressure (CPAP) ventilation documented in this encounter [facility] HealthcareEvaluation note* Diagnosis Obstructive sleep apnea- Primary Obstructive sleep apnea (adult) (pediatric) documented in this encounter [facility] HealthcareEvaluation note* Diagnosis Obstructive sleep apnea- Primary Obstructive sleep apnea (adult) (pediatric) Class 3 severe obesity with serious comorbidity and body mass index (BMI) of 40.0 to 44.9 in adult,unspecified obesity type ([facility]) Breakdown (mechanical) of implanted electronic neurostimulator, generator, sequela documented in this encounter [facility] HealthcareEvaluation note* Diagnosis Obstructive sleep apnea- Primary Obstructive sleep apnea (adult) (pediatric) documented in this encounter [facility] HealthcareEvaluation note* Diagnosis Osteopenia, unspecified location- Primary Other osteoporosis without current pathological fracture Other iron deficiency anemia documented in this encounter [facility] HealthcareEvaluation note* Diagnosis Renal calculus Calculus of kidney documented in this encounter [facility] note* Diagnosis Obstructive sleep apnea- Primary Obstructive sleep apnea (adult) (pediatric) Class 3 severe obesity with serious comorbidity and body mass index (BMI) of 40.0 to 44.9 in adult,unspecified obesity type ([facility]) Intolerance of continuous positive airway pressure (CPAP) ventilation documented [facility] encounter [facility]* Diagnosis Gross hematuria Renal colic [facility]* Diagnosis Ureteral stone with hydronephrosis- Primary Calculus of ureter documented [facility] this [facility]* Diagnosis Pre-op testing Preoperative examination, unspecified documented in this encounter [facility] note* Diagnosis Gross hematuria Renal colic documented [facility] this [facility]* Diagnosis Flank pain- Primary Abdominal pain, unspecified site Right lower quadrant abdominal pain Abdominal pain, right lower quadrant [facility] in this [facility]* Diagnosis Type 2 diabetes mellitus without complication, unspecified whether residential insulin use (HCC)- Primary documented in this encounter [facility] HealthcareEvaluation note* Diagnosis Type 2 diabetes mellitus with hyperglycemia, without long-term current use of insulin (HCC)- Primary Vitamin D deficiency Weight gain Other symptoms concerning nutrition, metabolism, and development Encounter for dietary consultation Hyperlipemia, mixed Mixed hyperlipidemia Diabetes mellitus with complication (HCC) Type II or unspecified type diabetes mellitus with unspecified complication, not stated as uncontrolled Hypoglycemia Hypoglycemia, unspecified documented in this encounter [facility] HealthcareHistory general Narrative - Reported* Type Description Date Medical History PTSD Medical HistoryDIVERTICULITOUSSurgical History2 BACK [id number] HistoryLEFT [id number] HistoryCHOLECYSTECTOMYHospitalization HistorySEE ABOVE [employer] Other History general Narrative - Reported* Type Description Date Medical History PTSD Medical HistoryDIVERTICULITOUSMedical HistorybipolarMedical HistoryADHDSurgical History2 BACK [id number] HistoryLEFT [id number] History CHOLECYSTECTOMYSurgical Historynasal surgeryHospitalization HistorySEE ABOVE [employer] Other History general Narrative - Reported* Type Description Date Medical History PTSD Medical HistoryDIVERTICULITOUSMedical HistorybipolarMedical HistoryADHDSurgical History2 BACK [id number] HistoryLEFT [id number] History CHOLECYSTECTOMYSurgical Historynasal surgerySurgical Historyright Rotator [id number] HistorySEE ABOVE [employer] Other History general Narrative - Reported* Type Description Date Medical History PTSD Medical HistoryDIVERTICULITOUSMedical HistorybipolarMedical HistoryADHDMedical Historyrotator cuff tearSurgical History2 BACK [id number] History LEFT [id number] HistoryCHOLECYSTECTOMYSurgical Historynasal surgery Surgical Historyright Rotator -45-31Talqxinmbrkeimg HistorySEE ABOVE [employer] Other History general Narrative - Reported* Type Description Date Medical History PTSD Medical HistoryDIVERTICULITOUSMedical HistorybipolarMedical HistoryADHDMedical Historyrotator cuff tearSurgical History2 BACK [id number] History LEFT [id number] HistoryCHOLECYSTECTOMYSurgical Historynasal surgery Surgical Historyright Rotator [id number] HistoryNeck injections/root burnt103/11/2022Hospitalization HistorySEE ABOVE [employer] Other HisOmniPV general Narrative - Reported* Type Description Date Medical History PTSD Medical HistoryDIVERTICULITOUSMedical HistorybipolarMedical HistoryADHDMedical Historyrotator cuff tearSurgical History2 BACK [id number] History LEFT [id number] HistoryCHOLECYSTECTOMYSurgical Historynasal surgery Surgical Historyright Rotator [id number] HistoryNeck injections/root burnt103/11/2022Hospitalization HistorySEE [facility] [employer] Other Hospital Discharge instructions* Attachments The following attachments cannot be sent through Care Everywhere. * Pilonidal Abscess ([place]) [facility] Work Phone: Hospital Discharge instructions No data available for this section [facility] Additional Instructions No exertional activity Ice to incisions for pain and swelling Medications as prescribed May shower in 24 hours Call the office for any questions or concerns [facility] Work Phone: Hospital Discharge instructions Additional Instructions No exertional activity, no lifting or straining, Ice to incision for 20-minute intervals May shower in 24 hours Pain medication and antibiotic as prescribed Call the office for any questions or concerns Follow-up in the [facility] Work Phone: Hospital Discharge instructions* Attachments The following attachments cannot be sent through Care Everywhere. * Abdominal Pain ([place]) * Flank Pain ([place]) documented in this encounterBon [facility], IncInstructionsNot on file documented in this encounterProVeterans Affairs Medical [facility]-Tuscaloosa [facility] SystemInstructionsNot on file documented in this encounterProVeterans [facility] SystemInstructionsNot on file documented in this encounterProVeterans Affairs [facility] SystemInstructionsNot on file documented in this encounterProVeterans [facility] SystemInstructionsNot on file documented in this encounterProVeterans [facility] SystemInstructionsNot on file documented in this encounterProVeterans [facility] Medical [facility] SystemInstructionsNot on file documented in this encounterProCleveland Clinic Lutheran HospitalWorld Procurement International SystemInstructionsNot on file documented in this encounterWVUMedicine Barnesville HospitalWorld Procurement International SystemProgress note No data available for this section [facility] Center[facility]ron for referral (narrative)* Consultation (Routine) - Pending ReviewSpecialtyDiagnoses / ProceduresReferred By Contact Referred To ContactOtolaryngology Diagnoses JADON (obstructive sleep apnea) Procedures [place] OFFICE[facility]OUTPATIENT [facility] 60 MINUTES Brittany Neville NP [address] [place] [address] Referral IDStatusReasonStart DateExpiration DateVisits RequestedVisits [id number] Review Specialty Services Required Scheduling Instructions Dr. Brito for Inspire device. [facility] for referral (narrative)No reason for referral information availableUniversity Hospitals [facility] Work Phone: Reason for visit Narrative* Consultation (Routine) - Pending ReviewSpecialtyDiagnoses / ProceduresReferred By ContactReferred To ContactBreast Surgery Diagnoses Abnormal mammogram Lisa Fisher MD [address] [place] [id number] Ila Trevizo MD [address] [facility] [address] [place] [address] Referral IDStatusJenniferCooper Green [facility] DateExpiration DateVisits RequestedVisits [id number] Review/ [facility] for visit Narrative* Auth/CertSpecialtyDiagnoses / ProceduresReferred By ContactReferred To Contact Diagnoses Ureteral stone with hydronephrosis Procedures [place] CYSTO/URETERO W/LITHOTRIPSY &INDWELL STENT INSRT CYSTOSCOPY URETEROSCOPY LASER-right ureteroscopy/thulium laser lithotripsy with possible right ureteral stent placement/exchange Martir Stovall MD [address] [facility], [address] [place] [address] Phone: tel: fax: [facility] [address] [place] [address] Referral IDStatRiverside Methodist Hospital DateExpiration DateVisits RequestedVisits [id number] [facility] for visit Narrative* Imaging (Emergency) - Open SpecialtyDiagnoses / ProceduresReferred By ContactReferred To ContactRadiology Diagnoses Gross hematuria Renal colic Procedures CT ABDOMEN PELVIS WO CONTRAST Additional Contrast? None Ruddy Valencia PA-C [address] [place] [address] [address] [place] [address] Phone: tel: fax: Referral IDStatusReCooper Green Mercy Hospital DateExpiration DateVisits RequestedVisits [id number]/15/20259/ [facility] Summary Purpose Family History No Family History Records Found Relationship Condition Age at Onset Recorded Date/T basia father Diabetes mellitus Unknown Heart diseaseUnknownNot SpecifiedDiabetes mellitusUnknown Relationship Condition Age at Onset Recorded Date/T basia father Diabetes mellitus Unknown Heart diseaseUnknownNot SpecifiedDiabetes mellitusUnknownfatherMalignant neoplasmUnknownDeceasedUnknownDiabetes mellitusUnknownNot SpecifiedMalignant neoplasmUnknown Relationship Condition Age at Onset Recorded Date/T basia mother Diabetes mellitus Unknown Malignant neoplasmUnknownfatherMalignant neoplasmUnknownHeart diseaseUnknown DeceasedUnknownDiabetes mellitusUnknown Advance Directives No Advanced Directives Records Found Advance Directive Response Recorded Date/ Time Advance Directives No July 18 8:24am Advance Directive Response Recorded Date/ Time Advance Directives No July 18 9:24am Code StatusDate ActivatedDate InactivatedCommentsFull Code09/16/2016 3:19 PM 09/17/2016 8:38 PMDate ActivatedDate InactivatedComments09/16/2016 3:19 PM 09/17/2016 8:38 PMCode StatusDate ActivatedDate InactivatedCommentsFull Code 09/16/2016 3:19 PM09/17/2016 8:38 PM Advance Directive Response Recorded Date/ Time Advance Directives No August 29 3:24pm Date ActivatedDate InactivatedComments11/15/2024 3:11 PMDate ActivatedDate InactivatedComments11/15/2024 3:11 PM11/15/2024 8:41 PMDate ActivatedDate InactivatedComments11/15/2024 3:11 PM11/15/2024 8:41 PM Reason for Referral Reason *FU [...] PATIENT REFERRAL FORM TO [facility] CL[facility]IC. SpecialtyDiagnoses / ProceduresReferred By ContactReferred To Contact Diagnoses Lumbosacral spondylosis without myelopathy Procedures Case request operating room: INJECTION BLOCK NERVE MEDIAL BRANCH: left L45 [address] Sellers, UMESH [address], [address] [place] [address] Referral IDStatusReasonStart DateExpiration DateVisits RequestedVisits [id number] Review04/28// Chief Complaint and Reason for Visit Chief Complaint Obesity Abdominal Pain, Rectal Bleeding Chief Complaint WMN f/u 2 month follow upReason for VisitADHD BMI 36.0-36.9,adult Constipation Diabetes mellitus with hyperglycemia [...] disease) J [facility] 2024 1:22pm Irritable bowel syndrome [...] section and content) DATE CREATED AUTHOR 08/26/2017 [facility] DATE CREATED AUTHOR AUTHOR'S ORGANIZ ATION 05/30/2022 [facility] DATE CREATED AUTHOR AUTHOR'S ORGANIZ ATION 01/18/2023 [facility] DATE CREATED AUTHOR AUTHOR'S ORGANIZ ATION 06/04/2023 [facility] DATE CREATED AUTHOR AUTHOR'S ORGANIZ ATION 10/10/2023 [facility] DATE CREATED AUTHOR AUTHOR'S ORGANIZ ATION 12/22/2023 [facility] DATE CREATED AUTHOR AUTHOR'S ORGANIZ ATION 08/21/2024 [place] DATE CREATED AUTHOR AUTHOR'S ORGANIZ ATION 10/04/2024 [facility] DATE CREATED AUTHOR AUTHOR'S ORGANIZ ATION 11/13/2024 [facility] DATE CREATED AUTHOR AUTHOR'S ORGANIZ ATION 11/19/2024 [facility] DATE CREATED AUTHOR AUTHOR'S ORGANIZ ATION 11/24/2024 [facility] DATE CREATED AUTHOR AUTHOR'S ORGANIZ ATION 12/06/2024 [facility] DATE CREATED AUTHOR AUTHOR'S ORGANIZ ATION 12/26/2024 [facility] Reason for Visit (unrecogniz ed section and content) ReasonCommentsCystPt has a cyst on her rear that she would like lanced. Pt went to urgent care but they could not juan because it was too hardNauseaPt reports loss of appetite and nausea after taking bactrim on empty stomache. Pt was also prescribed Doxy but it is not available until Thursday.Concern For COVID-19Pt would like swabbed for covid because pt was told covid is going around again. Pt is afebrile. Denies SOB/cough symptoms. Pt asking for work noteReasonComments OtalgiaTMJ on the left side of her jaw, increased pain in her jaw.ReasonComments ConstipationReasonCommentsFallPatient slipped on ice last night and hit head, states sore everywhere, Denies LOC or vomiting. States she is getting a migraine but states she did not take any of her medications because she wanted to be checked first.ReasonCommentsDizzinessPt reports I just feel out of it, like dizzy. If anything I want to drive back to the house and goto sleep , starting today. Pt reports several significant stressors occurring today (Office visit at urology today for passed kidney stone, my one kid didn't take his meds so that's a lot, Im trying to get someone to get these kids picked up . Pt irritated with kids in triage.ReasonOnset DateCommentsMedication Problem 4ReasonCommentsSleep ApneaHeadacheNumbnessReasonCommentsMed Refill ReasonCommentsDiabetesReasonOnset DateCommentsMedication, DME02/20/2023Reason Onset DateCommentsPrior Exhftcpzlwzwz76/12/2025ReasonCommentsBack PainNeck Pain ReasonOnset DateCommentsMed Pysnck764ReasonOnset DateCommentsMed Refill 4ReasonCommentsNew PatientReasonCommentsDiscuss HormonesReasonComments Sleep ApneaInspire ConsultReasonCommentsGynecologic ExamReasonCommentsSleep ApneaS/p DISEReasonCommentsNexplanon removalReasonCommentsAnkle PainPt to ED from home with c/o left ankle pain. Denies any fall or injury.Onset of pain x2-3 days ago.Pt has been wearing a splint.Pt fell at work x1 month ago. Pt evaluated and treated at [facility].Pt fell again x2 weeks ago. Pt evaluated at [facility] and treated for right ankle and wrist fracture. Pt has MRI scheduled.Pt currently being treated by Pain Management.ReasonOnset DateCommentsAdvice Only07/20/20245935FhiheaBptidaumZdbidt-cyYplsnaNweldrgtQyua-gp Post op InspireReasonCommentsPost-opHaving problems with inspireReasonComments Post-opStill having trouble with InspireReasonCommentsPost-opReasonOnset Date CommentsMed Iqdntc9510/03/2024ReasonCommentsDISCUSS RESULTSPatient presents to office today to discuss plan of care for Osteoporosis.ReasonCommentsSleep Apnea Thinks her Inspire has moved againReasonOnset DateCommentsMed Eirphx4111/16/2024 ReasonCommentsAbdominal PainFlank PainPt states she had a kidney stone blasted on Thursday and has a stent place by Dr. Umana. Pt c/o increasing pain to her RLQ and right flankReasonCommentsDiabetesFollow-upReasonOnset DateCommentsPrior Hzfzdatxwvgtt35/09/2025 Ordered Prescriptions (unrec ognized section and content) PrescriptionSigDispensedRefillsStart DateEnd Date clindamycin (CLEOCIN) 150 MG capsule Take 3 capsules by mouth in the morning and 3 capsules at noon and 3 capsules before bedtime. Do all this for 10 days. 90 capsule /rescriptionSigDispensedRefillsStart DateEnd Date hwhnpokq-kisjazsmy-kuclozedfpeqky (CORTISPORIN) 3.5-81475-[address] 4 drops into the left ear 3 times daily for 7 days Instill into left Ear TID x 7 days 10 mL //rescriptionSigDispense QuantityRefillsLast FilledStart DateEnd Date oxyCODONE-acetaminophen (PERCOCET) 5-325 MG per tablet Indications:Flank painTake 1 tablet by mouth every 6 hours as needed for Pain for up to 3 days. Intended supply: 3 days. Take lowest dose possible to manage pain Max Daily Amount: 4 tablets 12 tablet Scheduled Active and Recently Administ ered Medications (unrecognized section and content) Medication Order// clindamycin (CLEOCIN) capsule 450 mg (COMPLETED) 450 mg, Oral, ONCE, 1 dose, On 10/12/21 at 0115, Antimicrobial Indications: Skin and Soft TissueInfection * 0145 (Given - Provider: Leroy Roca, RN) ondansetron (ZOFRAN-ODT) disintegrating tablet 4 mg (COMPLETED) 4 mg, Oral, ONCE, 1 dose, On 10/12/21 at 0130 * 0133 (Given - Provider: Leroy Roca, RN) Medication Order/// ketorolac (TORADOL) injection 30 mg (COMPLETED) 30 mg, IntraMUSCular, ONCE, 1 dose, On Thu04/20/23 at 1400, Do not administer for more than 5 days. * 1356 (Given - Provider: Ericka Weller, RN) orphenadrine (NORFLEX) injection 60 mg (COMPLETED) 60 mg, IntraMUSCular, ONCE, 1 dose, On Thu04/20/23 at 1400 * 1357 (Given - Provider: Ericka Weller, ZEYNEP) Medication Order// sodium chloride 0.9 % bolus 1,000 mL (COMPLETED) 1,000 mL (10.4 mL/kg), IntraVENous, at 983.6 mL/hr, Administer over 61 Minutes, ONCE, On Thu01/13/24 at 1530, For 1 dose, For adult patients weighing > 55 kg (120 lbs.) and less than <50 yearsof age initiate 0.9NS at 500 mL/ hr. 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 TO O.R., 1 dose, On Thu11/15/24 at 1530, Antimicrobial Indications: Surgical Prophylaxis, Administer within 1 hour prior to incision., Pre-op (day of surgery) * 1628 (New Bag - Provider: Austin Chavarria RN - Comment: in OR) * 1728 (Due: Stopped - Provider: Austin Chavarria RN) sodium chloride flush 0.9 % injection 5-40 mL 5-40 mL, IntraVENous, EVERY 12 HOURS SCHEDULED (2 times per day), First dose on Thu11/15/24 at 2100, Until Discontinued, For Line Patency: Peripheral IV = 5 mL; Midline or Central Line = 10 mL/lumen.If following IV push medication, administer flush at same rate as the IV push. Flush volume is determined by type of infusion therapy being given. For non-viscous solutions use: Peripheral IV = 5 mL Midline or Central Line = 10 mL/lumen For viscous solutions (i.e. blood components, parenteral nutrition, contrast media, or after obtaining blood sample) use: Peripheral IV = 10 mL Midline or CentralLine = 20 mL/lumen, PACU only * 2100 (Due) Medication Order/ lactated ringers infusion IntraVENous, at 100 mL/hr, CONTINUOUS, Starting on Thu11/15/24 at 1530 * 1511 (New Bag - Provider: Corazon Veloz RN) Medication Order/ 0.9 % sodium chloride infusion IntraVENous, at [...] doses, Starting on Thu11/15/24 at 1719, Until Discontinued,Pain Moderate (4-6) OR per patient request for pain score (7- 10), For Phase I. If Phase II oral narcotics have been administered in the last 60 minutes, do not administer IV narcotics unless specifically approved by provider., PACU only fentaNYL (SUBLIMAZE) injection 50 mcg 50 mcg, IntraVENous, EVERY 5 MIN PRN, 2 doses, Starting on Thu11/15/24 at 171, Until Discontinued,Pain Severe (7-10), For Phase I. If Phase II oral narcotics have been administered in the last 60 minutes, do not administer IV narcotics unless specifically approved by provider., PACU only lidocaine (XYLOCAINE) 2 % uro-jet (CANCELED) PRN, Starting on Thu11/15/24 at 1703, Intra-op * 1703 (Given - Provider: Martir Stovall MD) naloxone 0.4 mg in 10 mL sodium chloride syringe IntraVENous, PRN, Opioid Reversal, Starting on Thu11/15/24 at 171, PRN if respiratory rate is lessthan 6/min and patient is difficult to arouse [...] 1802, Nausea, Initial antiemetic therapy., PACU only * 1802 (Given - Provider: Deshawn Saleem RN) oxyCODONE (ROXICODONE) immediate release tablet 5 mg (COMPLETED) 5 mg, Oral, ONCE PRN, 1 dose, Starting on Thu11/15/24 at 1719, Until Thu11/15/24 at 1756, Pain Moderate (4-6) OR per patient request for pain score (7-10), Pain Severe (7-10), PHASE II, PACU only * 1756 (Given - Provider: Deshawn Saleem RN) sodium chloride flush 0.9 [...] For viscous solutions (i.e. blood components, parenteral nutrition,contrast media, or after obtaining blood sample) use: Peripheral IV = 10 mL Midline or Central Line= 20 mL/lumen, PACU only Medication Order// ketorolac (TORADOL) injection 15 mg (COMPLETED) 15 mg, IntraVENous, ONCE, 1 dose, On Solange 11/17/24 at 2115 * 214 (Given - Provider: Peg Heller RN) ondansetron (ZOFRAN) injection 4 mg (COMPLETED) 4 mg, IntraVENous, ONCE, 1 dose, On Solange 11/17/24 at 2115 * 2141 (Given - Provider: Peg Heller, ZEYNEP) sodium chloride 0.9 % bolus 1,000 mL (COMPLETED) 1,000 mL (9.59 mL/kg), IntraVENous, at 983.6 mL/hr, Administer over 61 Minutes, ONCE, On Solange 11/17/24 at 2115, For 1 dose * 214 (New Bag - Provider: Peg Heller RN) * 2302 (Stopped - Provider: Peg Heller RN) Medication Order509/509/ iopamidol (ISOVUE-370) 76 % injection 75 mL (COMPLETED) 75 mL, IntraVENous, IMG ONCE PRN, 1 dose, Starting on Solange 11/17/24 at 2205, Until Solange 11/17/24 at 2206, Other * 2206 (Given - Provider: Juan M Romano) Care Teams (unrecognized sec tion and content) Team MemberRelationshipSpecialtyStart DateEnd Date Shawna Mcfadden, DO [address] [place] [address] PCP - [facility]10/12/21Team MemberRelationshipSpecialtyStart DateEnd Date Shawna Mcfadden, DO [address] [place] [address] PCP - [facility]10/12/21Team MemberRelationshipSpecialtyStart DateEnd Date Shawna Mcfadden, DO [address] [place] [address] PCP - [facility]10/12/21Team MemberRelationshipSpecialtyStart DateEnd Date Shawna Mcfadden, DO [address] [place] [address] PCP - [facility]10/12/21 Team Status: Active Member Role Status Dates NON STAFF Primary Care Provider Active Team Status: Active Member Role Status Dates Yo Blank MD Attending Provider Active S tart: March 05, 2023 Malika Castillo Care ProviderActiveStart: March 05, 2023 Team Status: Active Member Role Status Dates Yo Blank MD Attending Provider, Other Provider Active Start: March 18, 2023 NON STAFFPrimary Care ProviderActiveStart: March 18, 2023 Team MemberRelationshipSpecialtyStart DateEnd Date Rumschlag, Shawna, DO [address] [place] [address] PCP - [facility]10/12/21Team MemberRelationshipSpecialtyStart DateEnd Date Rumschlag, Shawna, DO [address] [place], [place] [id number] PCP - [facility]10/12/21 Team Status: Active Member Role Status Dates Luz Mariajosr Driver , GIRL FRIDAY-BC Primary Care Provider Active Team Status: Inactive Member Role Status Dates Gayathri Adams APRN Attending Provider Active Start: May 21, 2023 End: May 21, 2023Lucas T Shammo , GIRL FRIDAY-BCPrimary Care ProviderActiveStart: May 21, 2023 End: May 21, 2023 Team Status: Inactive Member Role Status Dates Jan Garg APRN Attending Provider Active Start: May 21, 2023 End: May 21, 2023Lucas T Shammo , GIRL FRIDAY-BCPrimary Care ProviderActiveStart: May 21, 2023 End: May 21, 2023Team MemberRelationshipSpecialtyStart DateEnd Date Rumschlag, Shawna, DO [address] [facility] [address] PCP - [facility]10/12/21Team MemberRelationshipSpecialtyStart DateEnd Date Rumschlag, Shawna, DO [address] [facility], [place] [id number] [facility]10/12/21Team MemberRelationshipSpecialtyStart DateEnd Date Davie Mcneal APRN - JACK STRIP ASSEMBLER [address] [facility] [place] [address] PCP - General11/11/23Team MemberRelationshipSpecialtyStart DateEnd Date Davie Mcneal APRN - JACK STRIP ASSEMBLER [address] [facility] [place] [address] PCP - General11/11/23Team MemberRelationshipSpecialtyStart DateEnd Date Davie Mcneal SECURITIES UNDERWRITER - JACK STRIP ASSEMBLER [address] [facility] [place] [address] PCP - General11/11/23Team MemberRelationshipSpecialtyStart DateEnd Date Davie Mcneal APRN - JACK STRIP ASSEMBLER [address] [place] [place] [address] PCP - General11/11/23Team MemberRelationshipSpecialtyStart DateEnd Date Shawna Mcfadden DO [address] [place] [address] [facility]04/14/22 Key Andrea, JACK STRIP ASSEMBLER [address] [place] [address] Referring PhysicianFamily Medicine08/13/23Team MemberRelationshipSpecialtyStart DateEnd Date Key Andrea, JACK STRIP ASSEMBLER [address] [place] [address] Referring PhysicianFamily Medicine08/13/23Team MemberRelationshipSpecialtyStart DateEnd Date Key Andrea, JACK STRIP ASSEMBLER [address] [place] [address] Referring PhysicianFamily Medicine08/13/23Team MemberRelationshipSpecialtyStart DateEnd Date Key Andrea, JACK STRIP ASSEMBLER [address] [place] [address] Referring PhysicianUpson [facility] Center08/13/23Team MemberRelationshipSpecialtyStart DateEnd Date Shawna Mcfadden, [address] [place] [address] PCP - [facility]04/14/22 Key Andrea, JACK STRIP ASSEMBLER [address] [place] [address] Referring PhysicianUpson Regional Medical Center08/13/23 Team Status: Inactive Member Role Status Dates Luz Maria Driver [facility] Primary Care Provider Active Start: January 21, 2024 End: January 20shashi Cerna RD LDAttending ProviderActiveStart: January 21, 2024 End: January 21, 2024 Team Status: Inactive Member Role Status Dates Luz Maria Driver [facility] Primary Care Provider Active Start: March 09, 2024 End: March 09, 2024Mio Marroquin DOAttending ProviderActiveStart: March 09, 2024 End: March 09, 2024Team MemberRelationshipSpecialtyStart DateEnd Date Shawna Mcfadden, DO [address] [place] [address] PCP - [facility]04/14/22 Key Andrea, JACK STRIP ASSEMBLER [address], [place] [id number] Referring PhysicianUpson Regional Medical Center08/13/23Team MemberRelationshipSpecialtyStart DateEnd Date Shawna Mcfadden, [address] [place] [address] PCP - GeneralFamily Medicine04/14/22 Key Andrea, JACK STRIP ASSEMBLER [address] [place] [address] Referring Physicianmily Medicine08/13/23Team MemberRelationshipSpecialtyStart DateEnd Date Shawna Mcfadden, DO [address] [place] [address] PCP - Generalmily Medicine05/02/22Team MemberRelationshipSpecialtyStart DateEnd Date Shawna Mcfadden, [address] [place] [address] PCP - Generalmily Medicine05/02/22Team MemberRelationshipSpecialtyStart DateEnd Date Shawna Mcfadden, [address] [place] [address] PCP - Generalmily Medicine04/14/22 Key Andrea, JACK STRIP ASSEMBLER [address] [facility] [place] [address] Referring PhysicianEssex Hospital Medicine08/13/23Team MemberRelationshipSpecialtyStart DateEnd Date Shawna Mcfadden, DO [address] [place] [address] PCP - Generalmily Medicine05/02/22Team MemberRelationshipSpecialtyStart DateEnd Date Shawna Mcfadden, DO [address] [place] [address] PCP - GeneralFamily Medicine05/02/22Team MemberRelationshipSpecialtyStart DateEnd Date Shawna Mcfadden, [address] [place] [address] PCP - GeneralFamily Medicine05/02/22Team MemberRelationshipSpecialtyStart DateEnd Date Shawna Mcfadden, [address] [place] [address] PCP - GeneralFamily Medicine05/02/22Team MemberRelationshipSpecialtyStart DateEnd Date Shawna Mcfadden DO [address] [place] [address] PCP - GeneralFamily Medicine05/02/22Team MemberRelationshipSpecialtyStart DateEnd Date Shawna Mcfadden DO [address] [place] [address] PCP - GeneralFamily Medicine05/02/22Team MemberRelationshipSpecialtyStart DateEnd Date Shawna Mcfadden, [address] [place] [address] PCP - GeneralFamily Medicine05/02/22Team MemberRelationshipSpecialtyStart DateEnd Date [facility] [address] [place] PCP - GeneralFamily Medicine10/05/23Team MemberRelationshipSpecialtyStart DateEnd Date Shawna Mcfadden DO [address] [place] [address] PCP - Generalmily Medicine04/14/22 Key Andrea, JACK STRIP ASSEMBLER [address] [place] [address] Referring PhysicianUpson Regional Medical Center08/13/23Team MemberRelationshipSpecialtyStart DateEnd Date Shawna Mcfadden, [address] [place] [address] PCP - Generalmily Medicine04/14/22 Key Andrea, JACK STRIP ASSEMBLER [address] [place] [address] Referring PhysicianUpson Regional Medical Center08/13/23Team MemberRelationshipSpecialtyStart DateEnd Date Shawna Mcfadden, [address] [place] [address] PCP - Generalmi Medicine04/14/22 Key Andrea, JACK STRIP ASSEMBLER [address] [place] [address] Referring PhysicianUpson Regional Medical Center08/13/23Team MemberRelationshipSpecialtyStart DateEnd Date Shawna Mcfadden, [address] [place] [address] PCP - Generalmi Medicine04/14/22 Key Andrea, JACK STRIP ASSEMBLER [address] [place] [address] Referring PhysicianEssex Hospital Medicine08/13/23 Sasha Santos DO [address] [place] [address] Referring PhysicianNeurology05/10/24Team MemberRelationshipSpecialtyStart DateEnd Date Shawna Mcfadden DO [address] [place], [place] [id number] PCP - [facility]Mah[facility] Healthly Medicine04/14/22 Key Andrea, JACK STRIP ASSEMBLER [address] [place] [address] Referring PhysicianEssex Hospital Medicine08/13/23 Sasha Santos DO [address] [place] [address] Referring PhysicianNeurology05/10/24 Team Status: Active Member Role Status Dates Luz Maria Driver [facility] Primary Care Provider Active Start: April 04, 2024 Matt Flores DOAttgeovani ProviderActiveStart: April 04, 2024 Team Status: Inactive Member Role Status Dates Luz Maria Driver [facility] Primary Care Provider Active Start: June 02, 2024 End: June 02, 2024Marielos Tomlin ProviderActiveStart: June 02, 2024 End: June 02, 2024Team MemberRelationshipSpecialtyStart DateEnd Date Shawna Mcfadden DO [address] [place] [address] PCP - [facility]Mah[facility]04/14/22 Key Andrea, JACK STRIP ASSEMBLER [address] [place] [address] Referring PhysicianEs[facility] Medicine08/13/23 Sasha Santos DO [address] [place] [address] Referring PhysicianNeurology05/10/24Team MemberRelationshipSpecialtyStart DateEnd Date Shawna Mcfadden DO [address] [place] [address] PCP - [facility]04/14/22 Key Andrea, JACK STRIP ASSEMBLER [address] [place] [address] Referring PhysicianFami Medicine08/13/23 Sasha Santos DO [address] [place] [address] Referring PhysicianNeurology05/10/24Team MemberRelationshipSpecialtyStart DateEnd Date Davie Mcneal APRN - JACK STRIP ASSEMBLER [address] [place] [address] PCP - General11/11/23 Team Status: Active Member Role Status Dates Davie Mcneal APRN JACK STRIP ASSEMBLER-C Primary Care Provide r Active Team Status: Inactive Member Role Status Dates Shira Cardoso DO Attending Provider Active S tart: July 27, 2024 End: July 27, 2024Davie Mcneal APRN JACK STRIP ASSEMBLER-CPrimary Care ProviderActive Start: July 27, 2024 End: July 27, 2024Team MemberRelationshipSpecialtyStart DateEnd Date Shawna Mcfadden DO [address] [place] [address] PCP - [facility]04/14/22 Key Andrea, JACK STRIP ASSEMBLER [address] [place] [address] Referring PhysicianFamily Medicine08/13/23 Sasha Santos DO [address] [place] [address] Referring PhysicianNeurology05/10/24Team MemberRelationshipSpecialtyStart DateEnd Date [facility] [address] [place] [address] [address] [facility] Medicine04/14/22 Key Andrea, JACK STRIP ASSEMBLER [address] [place] [address] Referring PhysicianEssex Hospital Medicine08/13/23 Sasha Santos DO [address] [place] [address] Referring PhysicianNeurology05/10/24Team MemberRelationshipSpecialtyStart DateEnd Date [facility] Shawna, [address] [place] [address] P[address] - [facility] Medicine04/14/22 Key Andrea, JACK STRIP ASSEMBLER [address] [place] [address] Referring PhysicianEssex Hospital Medicine08/13/23 Sasha Santos DO [address] [place] [address] Referring PhysicianNeurology05/10/24 Team Status: Inactive Member Role Status Dates Jan Garg APRN Attending Provider Active Start: August 08, 2024 End: August 08, 2024Davie Mcneal APRN JACK STRIP ASSEMBLER-CPren[facility] Care ProviderActive Start: August 08, 2024 End: August 08, 2024Team MemberRelationshipSpecialtyStart DateEnd Date Shawna Mcfadden DO [address] [place] [address] PCP - [facility]04/14/22 Key Andrea, JACK STRIP ASSEMBLER [address] [place] [address] Referring PhysicianEssex Hospital Medicine08/13/23 Sasha Santos DO [address] [place] [address] Referring PhysicianNeurology05/10/24 Team Status: Inactive Member Role Status Dates Shira Cardoso DO Attending Provider Active S tart: August 10, 2024 End: August 10, 2024Davie Mcneal APRN JACK STRIP ASSEMBLER-CPrimary Care ProviderActive Start: August 10, 2024 End: August 10, 2024Team MemberRelationshipSpecialtyStart DateEnd Date Shawna Mcfadden DO [address] [place] [address] PCP - [facility]04/14/22 Key Andrea, JACK STRIP ASSEMBLER [address] [place] [address] [facility]08/13/23 Sasha Santos DO [address] [place] [address] Referring PhysicianNeurology05/10/24 Shira Cardoso DO [address] [place] [address] Otolaryngology08/19/24Team MemberRelationshipSpecialtyStart DateEnd Date [facility] [place] Shawna, [address] [place] [address] [facility] - [facility]22 Key Andrea, JACK STRIP ASSEMBLER [address] [place] [address] Referring [facility] Medicine08/13/23 Sasha Santos DO [address] [place] [address] Referring PhysicianNeurology05/10/24 Shira Cardoso DO [address] [place] [address] Otolaryngology08/19/24Team MemberRelationshipSpecialtyStart DateEnd Date Shawna Mcfadden, [address] [facility] [place] [address] PCP - [facility]04/14/22 Key Andrea, JACK STRIP ASSEMBLER [address] [place] [address] Ref[facility]08/13/23 Sasha Santos DO [address] [place] [address] Referring PhysicianNeurology05/10/24 Shira Cardoso DO [address] [place] [address] Otolaryngology08/19/24Team MemberRelationshipSpecialtyStart DateEnd Date [facility] [address] [place], [place] PCP - GeneralFamily Medicine10/05/23Team MemberRelationshipSpecialtyStart DateEnd Date [facility] [address] [place] [address] PCP - [facility]04/14/22 Key Andrea, JACK STRIP ASSEMBLER [address] [place] [address] Ref[facility]08/13/23 Sasha Santos DO [address] [place] [address] Referring PhysicianNeurology05/10/24 Shira Cardoso DO [address] [place] [place] [address] Otolaryngology08/19/24Team MemberRelationshipSpecialtyStart DateEnd Date Shawna Mcfadden DO [address] [place] [address] PCP - GeneralFamily Medicine04/14/22 Key Andrea, JACK STRIP ASSEMBLER [address] [place] [address] Ref[facility]Fast[facility]08/13/23 Sasha Santos DO [address] [place] [address] Referring PhysicianNeurology05/10/24 Shira Cardoso DO [address] [place] [address] Otolaryngology08/19/24Team MemberRelationshipSpecialtyStart DateEnd Date Shawna Mcfadden DO [address] [place], [place] [id number] PCP - [facility]04/14/22 Key Andrea, JO ANN [address] [place] [address] Ref[facility]08/13/23 Sasha Santos DO [address] [place] [address] Referring PhysicianNeurology05/10/24 Shira Cardoso DO [address] [place] [address] Otolaryngology08/19/24 Team Status: Inactive Member Role Status Dates Davie Mcneal APRN JACK STRIP ASSEMBLER-C Primary Care Provide r Active Start: September 21, 2024 End: September 21, 2024Pahawa Cardoso DOAttending ProviderActiveStart: September 21, 2024 End: September 21, 2024Team MemberRelationshipSpecialtyStart DateEnd Date Shawna Mcfadden DO [address] [place], [place] [id number] PCP - [facility]04/14/22 Key Andrea, JACK STRIP ASSEMBLER [address] [place] [address] Referring Physicianmily Medicine08/13/23 Sasha Santos DO [address] [place] [address] Referring PhysicianNeurology05/10/24 Shira Cardoso DO [address] [place] [address] Otolaryngology08/19/24Team MemberRelationshipSpecialtyStart DateEnd Date Shawna Mcfadden DO [address] [place] [address] [facility]CP - [facility]04/14/22 Key Andrea, JO ANN [address] [place] [address] Referring Physicianmi Medicine08/13/23 Sasha Santos DO [address] [place] [address] Referring PhysicianNeurology05/10/24 Shira Cardoso DO [address] [place] [address] Otolaryngology08/19/24 Team Status: Inactive Member Role Status Dates Davie Mcneal APRN JACK STRIP ASSEMBLER-C Primary Care Provider Active Start: November 032024 End: November 03, 2024Nicole DO DanielleAttending ProviderActiveStart: November 03, 2024 End: November 03, 2024Team MemberRelationshipSpecialtyStart DateEnd Date Davie Mcneal APRN - JACK STRIP ASSEMBLER [address] [facility] [place] [address] PCP - General11/11/23Team MemberRelationshipSpecialtyStart DateEnd Date [facility] [address] [place], [place] PCP - GeneralFamily Medicine10/05/23Team MemberRelationshipSpecialtyStart DateEnd Date Shawna Mcfadden DO [address] [place] [address] PCP - GeneralFamily Medicine04/14/22 Key Andrea JACK STRIP ASSEMBLER [address] [place] [address] Referring PhysicianFamily Medicine08/13/23 Sasha Santos DO [address] [place] [address] Referring PhysicianNeurology05/10/24 Shira Cardoso DO [address] [facility] [place] [address] Otolaryngology08/19/24Team MemberRelationshipSpecialtyStart DateEnd Date Davie Mcneal APRN - JACK STRIP ASSEMBLER [address] [facility] [place] [address] PCP - General11/11/23Team MemberRelationshipSpecialtyStart DateEnd Date Davie Mcneal APRN - JACK STRIP ASSEMBLER [address] [facility] [place] [address] PCP - General11/11/23Team MemberRelationshipSpecialtyStart DateEnd Date [facility] [address] [place], [place] PCP - Generalmily Medicine10/05/23Team MemberRelationshipSpecialtyStart DateEnd Date Davie Mcneal APRN - JACK STRIP ASSEMBLER [address] [place] [address] PCP - General11/11/23Team MemberRelationshipSpecialtyStart DateEnd Date Shawna Mcfadden DO [address] [facility], [place] [id number] PCP - [facility]04/14/22 Key Andrea NP [address] [place] [address] Referring PhysicianFamily Medicine08/13/23 Sasha Santos DO [address] [place] [address] Referring PhysicianNeurology05/10/24 Shira Cardoso DO [address] [facility] [place] [address] Otolaryngology08/19/24Team MemberRelationshipSpecialtyStart DateEnd Date Davie Mcneal APRN - JACK STRIP ASSEMBLER [address] [place] [address] PCP - General11/11/23 Team Status: Inactive Member Role Status Dates Davie Mcneal APRN JACK STRIP ASSEMBLER-C Primary Care Provider Active Start: October 312024 End: November 17, 2024Marielos Tomlin ProviderActiveStart: November 17, 2024 End: November 17, 2024Team MemberRelationshipSpecialtyStart DateEnd Date Davie Mcneal APRN - JACK STRIP ASSEMBLER [address] [facility] [place] [address] PCP - General11/11/23Team MemberRelationshipSpecialtyStart DateEnd Date Shawna Mcfadden DO [address] [facility] [place] [address] PCP - GeneralFamily Medicine04/14/22 Key Andrea NP [address] [place] [address] Referring PhysicianFamily Medicine08/13/23 Sasha Santos DO [address] [place] [address] Referring PhysicianNeurology05/10/24 Shira Cardoso DO [address] [facility] [address] [address] Otolaryngology08/19/24Team MemberRelationshipSpecialtyStart DateEnd Date [facility] [address] [facility] [place] PCP - GeneralFamily Medicine10/05/23 Goals (unrecognized section and content) Goals may [...] BE BASED ON THE PRIMARY CLINICAL RECORDS. [employer] [facility]. provides no warranty or guarantee of the accuracy or completeness of information in this document.
--- OUTSIDE RECORDS SUMMARY | 2024-12-28 06:50 | XMS_ITS | Encounter Summary ---
Author Organization [facility] Address [address] [place] [address] Care Team Providers Care Electrical Power Engineer Name Role Phone Loreto Mcneal Primary Care Provider [phone] Encounter Details DateTypeDepartmentCare Team (Latest Contact Info)Ffjpnveafuc95/21/2025Telephone [facility] [address] [place] [address] Asha Aaron MA Social History Tobacco UseTypesPacks/DayYears UsedDateSmoking Tobacco: NeverPassive Smoke Exposure: NeverSmokeless Tobacco: NeverAlcohol UseStandard Drinks/WeekComments Not Currently0 (1 standard drink = 0.6 oz pure alcohol)Humiliation, Afraid, Rape, and Kick questionnaireAnswerDate RecordedWithin the last year, have you been afraid of your partner or ex-partner?No06/20/2024Within the last year, have you been humiliated or emotionally abused in other ways by your partner or ex-partner?No06/20/2024Within the last year, have you been kicked, hit, slapped, or otherwise physically hurt by your partner or ex-partner?No06/20/2024Within the last year, have you been raped or forced to have any kind of sexual activity by your partner or ex-partner?06/20/2024PHQ-2AnswerDate RecordedPatient Health Questionnaire-2 Dzemz567CommentsUnknownSex and Gender InformationValueDate RecordedSex Assigned at XtlsxOhbdeq85/19/2025 3:57 PM EDT Legal ElqVxbwmu72/29/2025 2:34 PM ESTGender CbwgbfrzRigktn28/19/2025 3:57 PM EDT Sexual OrientationHeterosexual or Egvbtdsj57/19/2025 3:57 PM EDTdocumented as of this encounter Plan of Treatment DateTypeDepartmentCare Team (Latest Contact Info)Omablzmhmgc71/06/2025 9:00 AM ESTOffice Visit [facility] [address] [place] [address] Mickey Rangel, FILM HISTORIAN [address] [place] [address] documented as of this encounter Visit Diagnoses Not on filedocumented in this encounter Care Teams Team MemberRelationshipSpecialtyStart DateEnd Date Loreto Mcneal [address] PCP - General03/30/24documented as of this encounter
--- OUTSIDE RECORDS SUMMARY | 2024-12-28 06:51 | XMS_ITS | Encounter Summary ---
Author Organization Wilbert [facility] Address [address], [address] [place] [address] Care Team Providers Care Cloth Folder Machine Name Role Phone Fredis Loretofer HYLTON - JO ANN Primary Care Prov ider Encounter Details DateTypeDepartmentCare Team (Latest Contact Info)Oxdkacavqwt66/28/2025Results Follow-Up [facility] Part of [address] [place] [address] Georges Valencia, PA-C [address] [place], [place] [id number] Social History Tobacco UseTypesPacks/DayYears UsedDateSmoking Tobacco: NeverSmokeless [...] day when you are drinking?Patient does not drink09/18/2025Q3: How often do you have six or more drinks on one occasion?Never11/17/2024Interpersonal Safety Domain Source: IP Abuse ScreeningAnswerDate RecordedPhysical cqfwwPpydwr48/18/2025 Verbal hvnygCcltwe30/18/2025Emotional pnyfpXssoys46/18/2025Financial abuseDenies 11/17/2024Sexual bhxstHwuzew57/18/2025CommentsNoSex and Gender InformationValueDate RecordedSex Assigned at BirthNot on fileLegal SexFemale 04/11/2012 2:04 PM ESTGender IdentityNot on fileSexual OrientationNot on file documented as of this encounter Plan of Treatment DateTypeDepartmentCare Team (Latest Contact Info)Uowgxktyzak17/30/2025 11:00 AM EDTOffice Visit [facility] Part of [address] [place] [id number] Yudi Gomez, COMMUNITY DEVELOPMENT COORDINATOR - WOMEN'S MINISTRY DIRECTOR [address] [place] [address] [address] [place], [place] [id number] 6w KUB/ KUB Reminder 12/21 BLdocumented as of this encounter Visit Diagnoses Not on filedocumented in this encounter Care Teams Team MemberRelationshipSpecialtyStart DateEnd Date Loreto Mcneal APRN - ASSISTANT PROFESSOR OF GEOGRAPHY [address] [place] [address] PCP - General11/11/23documented as of this encounter
--- OUTSIDE RECORDS SUMMARY | 2024-12-28 06:51 | XMS_ITS | Clinical Summary ---
Author Organization [facility] Address [address] [place] [address] Care Team Providers Care Hydraulic Billet Maker Name Role Phone Loreto Mcneal Primary Care Provider Allergies Active AllergyReactionsCriticalityNoted DateCommentsBiguanidesOther,UnknownHigh 04/15/2022 Severe hypoglycemia Other Reaction(s): Other (See Comments), Unknown Reaction Hypoglycemia Hypoglycemia CephalexinHives,Other,KtghpukUxzv18/15/2014 Shortness of breath, throat felt tight Other Reaction(s): Other: See Comments, Unknown Shortness of breath, throat felt tight Other Reaction(s): Swelling of Lip/Tongue/Throat, hives CitalopramHives,Yuibbpc6507/14/2013 Other Reaction(s): Other: See Comments, Unknown palpitations Other Reaction(s): Palpitations, anaphylaxis Citalopram HnxkfjmcryjtWipve29/15/2014 palpitations Poison Devorah LagdyeuWbxfowo69/14/2023 Medications MedicationSigDispense QuantityRefillsLast FilledStart DateEnd DateStatus Vivianaro 2.5 mg/0.5 mL pen injector INJECT 2.5 MG SUBCUTANEOUSLY (UNDER THE SKIN) EVERY 7 DAYS5Active ascorbic acid (Vitamin C) 500 mg tablet Take 500 mg by mouth twice a day.02/24/2023ctive Align, B.infantis, 4 mg capsule Take 1 capsule by mouth in the morning.12/18/2023Active cholecalciferol, vitamin D3, 50 mcg (2,000 unit) capsule Take 2,000 Units by mouth in the morning.04/09/2021ctive ciclopirox (Loprox) 0.77 % cream APPLY TO THE AFFECTED AREA(S) TWICE DAILY5Active cyclobenzaprine (Flexeril) 10 mg tablet Take 10 mg by mouth if needed in the morning, at noon, and at bedtime.11/16/2023 Active diclofenac (Voltaren) 75 mg EC tablet Take 75 mg by mouth if needed in the morning and at bedtime.4Active docusate sodium (Colace) 100 mg capsule Take 300 mg by mouth 3 times a day.Active DULoxetine (Cymbalta) [address] capsule Take 1 capsule by mouth in the morning.Active empagliflozin (Jardiance) 25 mg Take 25 mg by mouth in the morning.5Active etonogestrel-eluting contraceptive (Nexplanon) 68 mg contraceptive implant Inject 68 mg under the skin.Active FeroSuL 325 mg (65 mg iron) tablet Take 1 tablet by mouth in the morning.Active FLUoxetine (PROzac) 60 mg tablet Take 60 mg by mouth in the morning.Active fluticasone (Flonase) 50 mcg/actuation nasal spray Administer 1 spray into each nostril if needed.1Active gabapentin (Neurontin) 300 mg capsule 1 capsule every 8 (eight) hours.5Active lamoTRIgine (LaMICtal) 200 mg tablet Take 200 mg by mouth 1 (one) time each day at the same time.Active Linzess 290 mcg capsule 1 (one) time each day at the same time.Active lisdexamfetamine (Vyvanse) 70 mg capsule Take 1 capsule by mouth in the morning.Active Latuda 120 mg tablet Take 120 mg by mouth 1 (one) time each day at the same time.Active multivitamin (Theragran-M) 9 mg iron-400 mcg tablet Take 1 tablet by mouth in the morning.Active pantoprazole (ProtoNix) 20 mg EC tablet Take 20 mg by mouth in the morning and at bedtime.Active pioglitazone (Actos) 30 mg tablet 30 mg 1 (one) time each day at the same time.Active rosuvastatin (Crestor) 10 mg tablet Take 10 mg by mouth.Active traMADol (Ultram) 50 mg tablet Take 50 mg by mouth if needed each day.01/21/2023ctive VITAMIN B COMPLEX ORAL Take 1 tablet by mouth in the morning.01/16/2020Active metoprolol succinate XL (Toprol-XL) 25 mg 24 hr tablet Indications:Primary hypertensionTake 1 tablet (25 mg) by mouth in the morning. 30 tablet 1105009/15/2025ctive albuterol 90 mcg/actuation inhaler Inhale 2 puffs if needed each day.07/16/2020ctive fexofenadine (Ros) 180 mg tablet Take 180 mg by mouth in the morning.Active Active Problems ProblemNoted DateDiagnosed DateADHD (attention deficit hyperactivity disorder), combined type11/23/2024ipolar affective disorder, currently manic, moderate 11/23/2024ipolar disorder, current episode mixed, akiixeva20/24/2025hronic pain11/23/2024ircadian rhythm sleep disorder, shift work type11/23/2024Impulse control /24/8735Fmhzcc74/24/2025Post-traumatic osteoarthritis, left ankle and foot11/23/2024Secondary localized osteoarthrosis of ankle and foot 11/23/2024Ureteral stone with iydfegsirbpses47/16/2025Other osteoporosis without current pathological bdlaaajt33/03/2025Hyperlipidemia, dmatvsntdfk96/12/2024Type 2 diabetes mellitus with xxjywogyzlted95/12/2024Vitamin D deficiency, hwaiskpsmzb54/12/1336Qumlngnadcz52/08/2024Mass of upper outer quadrant of right olkjlk9106/02/2023Symptomatic mammary rdaronqksah86/02/2024Well woman exam with routine gynecological exam05/25/20233044Auptsq70/09/3526Wuhvdg78/09/2024ilateral foot pain03/10/2023hronic /09/7953Vvebtwdwzghbam64/09/2024Obesity 4Recurrent xuihuimbq96/09/2024isorder of dhsxpu5901/29/2023 Intervertebral disc stenosis of neural canal of cervical rofave7112/02/2022 Axillary ewxoulchokmnfkl63/11/2021Disc displacement, aqbets5810/11/2018 Overview (11/23/2024): Added automatically from request for surgery [id number] Lumbosacral spondylosis without /23/2019 Overview (11/23/2024): Added automatically from request for surgery [id number] Posttraumatic stress acvkndpp58/17/2019Type 2 diabetes mellitus without havfsmeitkbl00/11/2018Cervical disc dylwyqjgxqhr86/23/2018Acute cholecystitis 09/15/2016 Encounters DateTypeDepartmentCare QabsYppcrlslinn32/21/2025Telephone [facility] [address] [facility] [place] [address] Asha Aaron MA 11/23/2024 11:00 AM EDTOffice Visit [facility] [address] [facility]], [place] [address] Gautam Lunsford MD Pre-op evaluation (Primary Dx); Precordial chest pain11/23/2024Orders Only [facility] [address] [facility]], [place] [address] Torie Jimenez MA Other chest pain (Primary Dx); Pre-op evaluationfrom Last 3 Months Family History Medical HistoryRelationNameCommentsWegenersFatherDiabetesMotherHyperlipidemia MotherRelationNameStatusCommentsFatherDeceasedMotherAlive Social History Tobacco UseTypesPacks/DayYears UsedDateSmoking Tobacco: NeverPassive Smoke Exposure: NeverSmokeless Tobacco: Never Tobacco Cessation:Counseling Given: No Alcohol UseStandard Drinks/WeekCommentsNot Currently0 (1 standard drink = 0.6 oz pure alcohol)Humiliation, Afraid, Rape, and Kick questionnaireAnswerDate RecordedWithin the last year, have you been afraid of your partner or ex-partner?No06/20/2024Within the last year, have you been humiliated or emotionally abused in other ways by your partner or ex-partner?No06/20/2024 Within the last year, have you been kicked, hit, slapped, or otherwise physically hurt by your partner or ex-partner?No06/20/2024Within the last year, have you been raped or forced to have any kind of sexual activity by your part ner or ex-partner?06/20/2024PHQ-2AnswerDate RecordedPatient Health Questionnaire-2 Kfhmm496CommentsUnknownSex and Gender InformationValueDate RecordedSex Assigned at FhzwhFgbctq22/19/2025 3:57 PM EDT Legal LwbWgcjbd95/29/2025 2:34 PM ESTGender VnqhzipiVazmop31/19/2025 3:57 PM EDT Sexual OrientationHeterosexual or Izxwvute19/19/2025 3:57 PM EDT Last Filed Vital Signs Vital SignReadingTime TakenCommentsBlood Hsmdflwr127/8311/23/2024 10:58 AM EDT Ujgaa750811/23/2024 10:58 AM EDTTemperature--Respiratory Rate--Oxygen Saturation 96%11/23/2024 10:58 AM EDTInhaled Oxygen Concentration--Zjaljy971 kg (226 lb) 11/23/2024 10:58 AM TYJZvlkzr838 cm (5' 3 )11/23/2024 10:58 AM EDTBody Mass Index40.03011/23/2024 10:58 AM EDT Plan of Treatment DateTypeDepartmentCare Team (Latest Contact Info)Ioqvavroxpo64/06/2025 9:00 AM ESTOffice Visit [facility] [address] [place] [address] Mickey Rangel, ENVIRONMENTAL FIELD SERVICES TECHNICIAN [address] [place] [address] Health MaintenanceDue DateLast DoneCommentsDiabetes: Hemoglobin A1C1980 Diabetes: Retinopathy Bptkviisf47/26/1991Diabetes: Urine Protein Screening 09/25/1999HPV Vaccines (1 - 3-dose SCDM series)09/25/2007HPV/Izdczr9909/24/2010 Varicella Vaccines (1 of 2 - 13+ 2-dose series)01/16/20143624Dcuugqkba36/26/2021 COVID-19 Vaccine ( season)2023, 12/22/2022, 02/07/2022, Additional history existsDepression Hhsqpwjlw32/21/716202/ Cervical Cancer Nyowgwtop48/25/2027Pap SmearZoster Vaccines (1 of 2)2030dult Qpdfjvr45/04/213657/05/2021, 09/02/2021neumococcal Vaccine: Pediatrics (0 to 5 Years) and At-Risk Patients (6 to 64 Years)Completed 02/07/2022, 12/02/2017Hepatitis B LqecdsdaIblftblba92/25/2024, 12/22/2022, 06/23/2022Influenza DyijtkjIlwcgnqoq69/22/2025, 12/07/2023, 12/22/2022, Additional history existsHIB VaccinesAged OutNo longer eligible based on patient's age to complete this topicIPV VaccinesAged OutNo longer eligible based on patient's age to complete this topicMeningococcal B VaccineAged OutNo longer eligible based on patient's age to complete this topicMeningococcal VaccineAged OutNo longer eligible based on patient's age to complete this topicRotavirus VaccinesAged OutNo longer eligible based on patient's age to complete this topic Procedures Procedure NamePriorityDate/TimeAssociated DiagnosisCommentsECG 12 LEAD UNIT WBNPOUQDJTftqkyt24/24/2025 10:52 AM EDT Pre-op evaluation from Last 3 Months Results * ECG 12 lead unit performed (11/23/2024 10:52 AM EDT)Specimen (Source) Anatomical Location / LateralityCollection Method / VolumeCollection Time Received Time Narrative Authorizing ProviderResult TypeResult StatusChristopher Jonn DALEECG ORDERABLES Final Result from Last 3 Months Insurance * Guarantor: Karma Candelaria AAccount TypeRelation to PatientDate of PhoneBilling AddressPersonal/BdzxeyJjxx91/26/1981 [address] [phone] Care Teams Team MemberRelationshipSpecialtyStart DateEnd Date Loreto Mcneal [address] PCP - General03/30/24
--- OUTSIDE RECORDS SUMMARY | 2024-12-28 06:51 | XMS_ITS | Patient Health Record ---
Author Organization [facility] es Address [address] [address] Care Team Providers Care Shipwright Supervisor Name Role Phone Chinyere Calix Primary Care Provider [phone] Katharine Valdez Unavailable [phone] Allergies Allergen (clinical drug ingredient) Drug/Non Drug Allergy documented on EMR Reaction Allergy Type Onset Date Status citalopram Celexa Unknown Drug Allergy ActiveKeflexUnknownDrug AllergyActive Results Component Value Reference Range Notes HCG,Urine Reviewed date:08/21/2024 11:22:54 AM Interpretation: Performing Lab:, [facility], [place] [facility] Notes/Report: HCG Qualitative,Urine Negative Glucose Poct Glucometers Reviewed date:08/21/2024 11:22:47 AM Interpretation: Performing Lab:, [facility], [place] [facility] Notes/Report:Glucose Poc Lxnoeuixzxa63 Random Glucose Reference Range is dependent on time and content of last meal. Glucose of more than 200 mg/dL in a nonstressed, ambulatory subject supports the diagnosis of Diabetes Mellitus. Glucose Poct Glucometers Reviewed date:08/21/2024 11:22:42 AM Interpretation: Performing Lab:, [facility], [place] [facility] Notes/Report:Glucose Poc Vnermthlsgu406 Random Glucose Reference Range is dependent on time and content of last meal. Glucose of more than 200 mg/dL in a nonstressed, ambulatory subject supports the diagnosis of Diabetes Mellitus. Reason For Referral No Information Medications Medication SIG (Take, Route, Frequency, Duration) Notes Start Date End Date Status Latuda 120 MG Tablet 1 tablet in the luan basiliog with food Orally Once a day; Duration: 30 days ActiveVictozaunknown dosageActivePepcid 40 MG Tablet1 tablet at bedtime Orally Once a dayActiveJardiance 25 MG Tablet1 tablet Orally Once a dayActiveGabapentin 300 MG Capsule1 capsule Orally Three times a dayActiveActos 30 MG Tablet1 tablet Orally Once a dayActiveVyvanse 70 MG Capsule1 capsule in the morning Orally Once a day; Duration: 30 daysDNF until /5ActiveRosuvastatin Calcium 10 MG TabletTAKE 1 TABLET BY MOUTH EVERY DAY Oral; Duration: 30ActiveVyvanse 70 MG Capsule1 capsule in the morning Orally Once a day; Duration: 30 daysDNF until 5ActiveVyvanse 70 MG Capsule1 capsule in the morning Orally Once a day; Duration: 30 days5ActiveDocusate Sodium 100 MG Capsule3 capsules Orally Once a dayActivelamoTRIgine 200 MG Tablet1 tablet Orally Once a day; Duration: 30 daysActiveLinzess 290 MCG Capsule1 capsule at least 30 minutes before the first meal of the day on an empty stomach Orally Once a dayActive traZODone HCl 50 MG Tablet1-2 tablet at bedtime as needed Orally daily; Duration: 30 daysActiveLamISILunknown dosageActiveFLUoxetine HCl 60 MG Tablet1 tablet Orally Once a day; Duration: 30 daysActiveCyclobenzaprine HClunknown dosageActive Social History Tobacco Use: Social History Observation Description Date Details (start date - stop date) Never Smoker NA - NA Social History GeneralSocial InfoQuestionAnswerNotesTransition of Care:ER/UC/hospital since last office visit?NoSubstance abuse/mental health issues of patient/family Patient -DeniesAbility to understand healthcare/treatmentPatient:Good Social/Support Concerns:Patient:NoBehaviors affecting healthPoor/Risky Behaviors:Denies-Communication Barrier:Language Barrier?:NoDrug/Alcohol:Social InfoQuestionAnswerNotesAUDIT-C (Standard)Did you have a drink containing alcohol in the past year?DgWvivhe2XuapfdwdwabkrbPxlvmtreBokddwq Use:Social InfoQuestion AnswerNotesTobacco Control (Standard)Tobacco use:Nonsmoker Problems Problem Type SNOMED Code ICD Code Onset Dates Problem Status W/U Status Risk Notes Problem Attention deficit hy peractivity disorder, combined type (55663386) ADHD (attention deficit hyperactivity disorder), combined type (F90.2) ActiveconfirmedProblemPosttraumatic stress disorder (89686014)PTSD (post- traumatic stress disorder) (F43.10)ActiveconfirmedProblemMixed bipolar affective disorder, moderate (026288962)Bipolar 1 disorder, mixed, moderate (F31.62)Active confirmed Vital Signs Height 63 in 03/28/2024 Jmoprb526 lbs03/28/2024BMI38.97 kg/m203/28/2024 Encounters Encounter Location Date Provider Diagnosis [facility] [address] [place] [address] 01/14/2024 [facility] [place] [address] [place] [address] [facility] [place] [address] 03/30/2024[facility] [place] [address] [place] [address]/[facility] [place] [address]/[facility] [place] [place] [address]/[facility] PetersBipolar 1 disorder, mixed, moderate F31.62[facility] [place] [place] [address]/[facility] PetersBipolar 1 disorder, mixed, moderate F31.[address] [place] [address]Mary PetersADHD (attention deficit hyperactivity disorder), combined type F90.2 and Bipolar 1 disorder, mixed,moderate F31.62[facility] [facility] [place] [address]/Mary PetersBipolar 1 disorder, mixed, moderate F31.62 ; ADHD (attention deficit hyperactivity disorder), combined type F90.2 and PTSD (post- traumatic stress disorder) F43.10[facility] [facility] [address] [place] [address]/Mary PetersBipolar 1 disorder, mixed, moderate F31.62 ; ADHD (attention deficit hyperactivity disorder), combined type F90.2 and PTSD (post-traumatic stress disorder) F43.10[facility] [place] [address]/Mary PetersBipolar 1 disorder, mixed, moderate F31.62[place] [address] [place] [address]/Mary PetersBipolar 1 disorder, mixed, moderate F31.62 ; ADHD (attention deficit hyperactivity disorder), combined type F90.2 and PTSD (post- traumatic stress disorder) F43.10 Assessments Encounter Date Diagnosis (ICD Code) Assessment Notes Treatment Notes Treatment Clinical Notes Section Notes 08/16/2024 Bipolar 1 disorder, mixed, moder ate (ICD-10 - F31.62) 08/16/2024ipolar 1 disorder, mixed, moderate (ICD-10 - F31.62)12/21/2024DHD (attention deficit hyperactivity disorder), combined type (ICD-10 - F90.2) 12/27/2024ipolar 1 disorder, mixed, moderate (ICD-10 - F31.62)09/20/2024ipolar 1 disorder, mixed, moderate (ICD-10 - F31.62) . Informed consent obtained: YES, we discussed the diagnosis/diagnoses, the treatment options, treatment(s) recommended vs. no treatment. We discussed risks and benefits of treatment options, treatmentrecommendations vs. no treatment. . . Discussed lifestyle/diet changes to help improve BMI. Recommend increasing activity, reducing portion sizes, limiting carbohydrates, increasing protein as appropriate. Discussed referral to dieticianif problem persists. . . Continue current treatment [...] muscle spasms, slowness of movement or jerking ofmuscles. . . Currently at low risk for self harm. Denies ongoing feelings of hopelessness. Denies ongoing suicidal ideation, intent or plan in session. . 5Bipolar 1 disorder, mixed, moderate (ICD-10 - F31.62) . Informed consent obtained: YES, we discussed the diagnosis/diagnoses, the treatment options, treatment(s) recommended vs. no treatment. We discussed risks and benefits of treatment options, treatmentrecommendations vs. no treatment. . . Discussed lifestyle/diet changes to help improve BMI. Recommend increasing activity, reducing portion sizes, limiting carbohydrates, increasing protein as appropriate. Discussed referral to dieticianif problem persists. . . Continue current treatment [...] muscle spasms, slowness of movement or jerking ofmuscles. . . Currently at low risk for self harm. Denies ongoing feelings of hopelessness. Denies ongoing suicidal ideation, intent or plan in session. . 03/28/2024ipolar 1 disorder, mixed, moderate (ICD-10 - F31.62) no changes pt is stable . . Informed consent obtained: YES, we discussed the diagnosis/diagnoses, the treatment options, treatment(s) recommended vs. no treatment. We discussed risks and benefits of treatment options, treatmentrecommendations vs. no treatment. . . Discussed lifestyle/diet changes to help improve BMI. Recommend increasing activity, reducing portion sizes, limiting carbohydrates, increasing protein as appropriate. Discussed referral to dieticianif problem persists. . . Continue current treatment plan, tolerating meds well, compliant; call for problems . GOALS: Maintain medication regimen Maintain mood stability Maintain anxiety stability Maintain social and interpersonal functioning Maintain attention and hyperactivity . . Second generation antipsychotic medications can cause headache, drowsiness, agitation, dizziness, nausea, or extrapyramidal symptoms such as tremors, muscle spasms, slowness of movement or jerking ofmuscles. . . Currently at low risk for self harm. Denies ongoing feelings of hopelessness. Denies ongoing suicidal ideation, intent or plan in session. . 03/28/2024DHD (attention deficit hyperactivity disorder), combined type (ICD-10 - F90.2) . OARRS reviewed cont gabe . FDA approved stimulant medication for this age group. Discussed/Denies adverse effects from medication including HTN, tachycardia, insomnia, irritability, headache, or decreased appetite. . 06/13/2024DHD (attention deficit hyperactivity disorder), combined type (ICD-10 - F90.2) . FDA approved stimulant medication for this age group. Discussed/Denies adverse effects from medication including HTN, tachycardia, insomnia, irritability, headache, or decreased appetite. . 09/20/2024DHD (attention deficit hyperactivity disorder), combined type (ICD-10 - F90.2) . OARRS reviewed . FDA approved stimulant medication for this age group. Discussed/Denies adverse effects from medication including HTN, tachycardia, insomnia, irritability, headache, or decreased appetite. . 12/21/2024ipolar 1 disorder, mixed, moderate (ICD-10 - F31.62)09/20/2024PTSD (post-traumatic stress disorder) (ICD-10 - F43.10)06/13/2024PTSD (post-traumatic stress disorder) (ICD-10 - F43.10)03/28/2024PTSD (post-traumatic stress disorder) (ICD-10 - F43.10) Plan Of Treatment Next Appt Details Provider Name:Chinyere Calix, 01/02/2025 04:30:00 PM, [address], [place], [address], Provider Name:Chinyere Calix, 03/27/2025 03:30:00 PM, [address], [place], [address], Insurance Providers Payer Name Payer Address Payer Phone Subscriber Number Group Number Insured Name Patient Relationship to Insured Coverage Start Date Coverage End Date [facility] [place] [place] [employer] [address] [place] [address] [id number] Ezio WHITEHEADlf - patient is the pxavtij3504/02/2022 [facility] [address] [place] [id number]-ORUDU, HEATHER Self - patient is the sahlmde0404/02/2022[facility] 04/01/22. [address] [place] [id number]- SHULL, HEATHERSelf - patient is the [id number]- termed 04/01/22[address] [place] [phone] [id number]-[id number], HEATHERSelf - patient is the [id number] z[employer] MEDICAID [employer] after [place]-termed 04/01/22[address] [place] [address] [id number]-SHULL, HEATHERSelf - patient is the insured /2023 Medical (General) History Medical History History ICD Code bipolar PTSDADHDSurgical History Surgery Date(Month/Year) nasal surgery leg surgeryback surgeryankle surgeryHospitalization History Reason Date(Month/Year) Rotator cuff surgery 05/15/22
--- OUTSIDE RECORDS SUMMARY | 2024-12-28 06:51 | XMS_ITS | Encounter Summary ---
Author Organization [facility] Address [address] [place] [address] Care Team Providers Care Lab Engineer Name Role Phone Key Andrea DIGITAL CONTENT MARKETING MANAGER Unavailable Shawna Dudley DO Primary Care Provider [phone] Sasha Santos DO Unavailable [phone] Mendez Ortiz DO Unavailable [phone] Reason for Visit * ReasonOnset DateCommentsMed Ulmjch7312/08/2024 Encounter Details DateTypeDepartmentCare Team (Latest Contact Info)Ahasdgaxeow23/09/2025Telephone [facility] [address] [place] [address] Cleo Zambrano MD [address] [place], [place] [address] Med Refill Social History Tobacco UseTypesPacks/DayYears UsedDateSmoking Tobacco: NeverSmokeless Tobacco: NeverAlcohol UseStandard Drinks/WeekCommentsNever0 (1 standard drink = 0.6 oz pure alcohol)CommentsNoSex and Gender InformationValueDate RecordedSex Assigned at BirthNot on fileLegal BdfUqfcon91/15/2023 8:01 PM EDTGender Identity Not on fileSexual OrientationNot on filedocumented as of this encounter Miscellaneous Notes * [...] documented in this encounter Plan of Treatment DateTypeDepartmentCare Team (Latest Contact Info)Ivqcuxcezbv84/05/2026 10:40 AM ESTOffice Visit [facility] [address] [place] [address] Cleo Zambrano MD [address] [place] [address] 05/31/2025 1:00 PM EDTOffice Visit [facility] [address] [place] [address] Roel Garber DO [address] [place] [place], [place] [address] 08/18/2025 2:00 PM EDTOffice Visit [facility] [address] [place] [address] Mendez Ortiz DO [address] [place] [address] documented as of this encounter Visit Diagnoses Diagnosis Type 2 diabetes mellitus with hyperglycemia, without long-term current use of insulin (HCC) documented in this encounter Care Teams Team MemberRelationshipSpecialtyStart DateEnd Date Shawna Dudley DO [address] [place] [address] PCP - Generalmily Medicine04/14/22 Key Andrea NP [address] [place] [address] Referring PhysicianFamily Medicine08/13/23 Sasha Santos DO [address] [place] [address] Referring PhysicianNeurology05/10/24 Mendez Ortiz DO [address] [place] [address] Otolaryngology08/19/24documented as of this encounter
--- OUTSIDE RECORDS SUMMARY | 2024-12-28 06:51 | XMS_ITS | Encounter Summary ---
Author Organization [facility] Address [address] [place] [address] Care Team Providers Care Associate Professor Of Library Media Name Role Phone Zully, Key HAT BLOCKING MACHINE OPERATOR Unavailable Shawna Dudley DO Primary Care Provider [phone] Sasha Santos DO Unavailable [phone] Mendez Ortiz DO Unavailable [phone] Encounter Details DateTypeDepartmentCare Team (Latest Contact Info)Lghrqwnbgem70/22/2025bstract [facility] [place] OBKACE[facility] [address] [place] [address] [place] [address] Wilbert [place], [place] Social History Tobacco UseTypesPacks/DayYears UsedDateSmoking Tobacco: NeverSmokeless Tobacco: NeverAlcohol UseStandard Drinks/WeekCommentsNever0 (1 standard drink = 0.6 oz pure alcohol)CommentsNoSex and Gender InformationValueDate RecordedSex Assigned at BirthNot on fileLegal TlmNdyrlp08/15/2023 8:01 PM EDTGender Identity Not on fileSexual OrientationNot on filedocumented as of this encounter Plan of Treatment DateTypeDepartmentCare Team (Latest Contact Info)Mcozbajdzbr93/05/2026 10:40 AM ESTOffice Visit [facility] [address] [place] [address] Cleo Zambrano MD [address] [place] [address] 05/31/2025 1:00 PM EDTOffice Visit [facility] [place] [facility] [address] [facility] [place] [address] Roel Garber DO [address] [facility] [address] [place] [address] 08/18/2025 2:00 PM EDTOffice Visit [facility] [address] [place] [place] [address] Mendez Ortiz DO [address] [place] [place] [address] documented as of this encounter Visit Diagnoses Not on filedocumented in this encounter Care Teams Team MemberRelationshipSpecialtyStart DateEnd Date Shawna Dudley DO [address] [facility] [place], [place] [address] PCP - GeneralFamily Medicine04/14/22 Key Andrea NP [address] [place] [address] Referring PhysicianFamily Medicine08/13/23 Sasha Santos DO [address] [place] [address] Referring PhysicianNeurology05/10/24 Mendez Ortiz DO [address] [place] [place] [address] Otolaryngology08/19/24documented as of this encounter
--- OUTSIDE RECORDS SUMMARY | 2024-12-28 06:51 | XMS_ITS | Clinical Summary ---
Author Organization [facility] 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 Role Phone Loreto Mcneal APRN, NP Primary Care Prov ider Allergies Active AllergyReactionsCriticalityNoted JpymLnzjicqgQxmjytvtdzOmsnt45/15/2017 YpierbyyeqOpecm52/15/2017Metformin And RelatedOther (See Comments)04/20/2023 Hypoglycemia Medications MedicationSigDispense QuantityRefillsLast FilledStart DateEnd DateStatus ferrous sulfate 325 (65 Fe) MG tablet Take 1 tablet by mouth daily (with breakfast)Active fluticasone (FLONASE) 50 MCG/ACT nasal spray 1 spray by Nasal route dailyActive FLUoxetine (PROZAC) 20 MG capsule Take 3 capsules by mouth dailyActive temazepam (RESTORIL) 15 MG capsule Take 15 mg by mouth nightly as needed for SleepActive methocarbamol (ROBAXIN) 500 MG tablet Take 1 tablet by mouth 3 times dailyActive albuterol sulfate HFA 108 (90 Base) MCG/ACT inhaler Inhale 2 puffs into the lungs every 4 hours as needed for WheezingActive zonisamide (ZONEGRAN) 100 MG capsule Take 1 capsule by mouth dailyActive topiramate (TOPAMAX) 200 MG tablet Take 1 tablet by mouth dailyActive montelukast (SINGULAIR) 10 MG tablet Take 1 tablet by mouth nightlyActive naproxen (NAPROSYN) 500 MG tablet Take 1 tablet by mouth as needed for PainActive hydrOXYzine (ATARAX) 25 MG tablet Take 1 tablet by mouth every 4 hours as needed for Itching 30 tablet Active ibuprofen (ADVIL;MOTRIN) 600 MG tablet Take 1 tablet by mouth 4 times daily as needed for Pain 30 tablet Active gabapentin (NEURONTIN) 100 MG capsule Take 3 capsules by mouth 3 times daily.Active tiZANidine (ZANAFLEX) 4 MG tablet Take 2 tablets by mouth every 6 hours as neededActive naproxen (NAPROSYN) 500 MG tablet Take 1 tablet by mouth 2 times daily (with meals) for 5 days 10 tablet 10/05/2023ctive linaclotide (LINZESS) 290 MCG CAPS capsule Take 1 capsule by mouth every morning (before breakfast)Active empagliflozin (JARDIANCE) 25 MG tablet Take 1 tablet by mouth dailyActive Liraglutide (VICTOZA) 18 MG/3ML SOPN SC injection Inject 1.8 mg into the skin dailyActive probiotic (ALIGN/RISAQUAD) CAPS capsule Take 1 capsule by mouth daily ALIGNActive pioglitazone (ACTOS) 30 MG tablet Take 1 tablet by mouth dailyActive vitamin C (ASCORBIC ACID) 500 MG tablet Take 1 tablet by mouth 2 times dailyActive Cholecalciferol (VITAMIN D3) 50 MCG (2000 UT) CAPS Take 1 capsule by mouth dailyActive rosuvastatin (CRESTOR) 20 MG tablet Take 1 tablet by mouth dailyActive docusate sodium (COLACE) 100 MG capsule Take 3 capsules by mouth DailyActive traZODone (DESYREL) 50 MG tablet Take 1 tablet by mouth nightlyActive famotidine (PEPCID) 20 MG tablet Take 2 tablets by mouth dailyActive meloxicam (MOBIC) 15 MG tablet Take 1 tablet by mouth dailyActive lisdexamfetamine (VYVANSE) 70 MG capsule Take 1 capsule by mouth every morning.Active DULoxetine (CYMBALTA) 60 MG extended release capsule Take 1 capsule by mouth dailyActive fexofenadine (JONATHAN ALLERGY) 180 MG tablet Take 1 tablet by mouth dailyActive Cyclobenzaprine HCl (FLEXERIL PO) Take by mouth in the morning and at bedtime Take 2 at night and 1 every morning Active Diclofenac Sodium (VOLTAREN PO) Take by mouth in the morning and at bedtime One every morning and two every nightActive tamsulosin (FLOMAX) 0.4 MG capsule Take 1 capsule by mouth daily 30 capsule 5Active ibuprofen (ADVIL;MOTRIN) 600 MG tablet Take 1 tablet by mouth every 6 hours 30 tablet 5Active Tirzepatide (MOUNJARO) 2.5 MG/0.5ML SOAJ pen Inject 2.5 mg into the skin once a weekActive Active Problems ProblemNoted DateDiagnosed DateUreteral stone with bfblxohlkbbrmi78/16/2025 Encounters DateTypeDepartmentCare AsjxTfgyjepykyh80/28/2025Results Follow-Up [facility] [address] [place] [address] Georges Valencia PA-C 12/22/2024 12:08 PM EDT - 12/24/2024 11:59 PM EDTHospital Encounter [facility] Radiology [address] [place] [address] Renal calculus Discharge Disposition: Home or Self Care11/18/2024 9:00 AM EDTOffice Visit [facility] [address] [place] [address] Karen Cotter APRN - HILARY Renal calculus (Primary Dx)11/17/2024 9:00 PM EDT - 11/17/2024 11:38 PM EDT Emergency [facility] Emergency Department [address] [place], [place] [phone] Benja Echavarria MD Flank pain (Primary Dx); Right lower quadrant abdominal pain Discharge Disposition: Home or Self Care11/17/20242726Ropsie28/17/2025Results Follow-Up [facility] [address] [place] [address] Yudi Gomez APRN - CNP 11/15/2024 4:57 PM EDT - 11/15/2024 6:02 PM EDTSurgery [facility] OR [address] [place] [address] Faheem Stovall MD CYSTOSCOPY URETEROSCOPY LASER-right ureteroscopy/thulium laser lithotripsy with right ureteral stent placement/kumczrlr81/16/2025 4:38 PM EDTAnesthesia Event [facility] OR [address] [place] [address] Chepe Rodriguez APRN - SORAYA 11/15/2024 2:41 PM EDT - 11/15/2024 6:36 PM EDTHospital Encounter [facility] OR [address] [place] [address] Faheem Stovall MD Ureteral stone with hydronephrosis Discharge Disposition: Home or Self Care11/15/2024 11:00 AM EDT - 11/15/2024 2:40 PM EDTHospital Encounter [facility] EKG [address] [place], [place] [phone] Pre-op testing Discharge Disposition: Home or Self Care11/15/2024 10:15 AM EDTOffice Visit [facility] Part of [address] [place] [address] Karen Cotter, CONCETTA - GLASSWARE DEFECT REPAIRER Ureteral stone with hydronephrosis (Primary Dx); Pre-op yfvlnfs3211/15/20247105Jjkgvo94/16/2025Orders Only [facility] Part of [address] [place] [address] Faheem Stovall MD Ureteral stone with humusyohpqzrsa79/16/2025Results Follow-Up [facility] Specialty Providers on [address] [id number] Georges Valencia PA-C Omgfahh4311/14/2024 6:00 PM EDT - 11/16/2024 11:59 PM EDTHospital Encounter [facility] CT Scan [address] [place] [phone] Gross hematuria; Renal colic Discharge Disposition: Home or Self Care11/14/2024 5:59 PM EDTHospital Encounter [facility] [address] [place] [address] Gross hematuria; Renal colic Discharge Disposition: Home or Self Care11/14/2024Telephone [facility] Part of [address] [place] [address] Karen Cotter, MOTORBOAT MECHANIC HELPER - GLASSWARE DEFECT REPAIRER OTHER11/11/2024Results Follow-Up [facility]OLOGY [facility] [address] [facility] [address] [place] [address] Yudi Gomez, CONCETTA - GLASSWARE DEFECT REPAIRER 11/07/2024 4:05 PM EDT - 11/09/2024 11:59 PM EDTHospital Encounter [facility] Radiology [address] [place] [address] Renal calculus Discharge Disposition: Home or Self Carefrom Last 3 Months Social History Tobacco UseTypesPacks/DayYears UsedDateSmoking Tobacco: NeverSmokeless Tobacco: Never Tobacco Cessation:Counseling Given: Not Answered Alcohol UseStandard Drinks/WeekCommentsNever0 (1 standard drink = 0.6 oz pure alcohol)AUDIT-CAnswerDate RecordedQ1: How often do you have a drink containing alcohol?Never10/05/2023Q2: How many drinks containing alcohol do you have on a typical day when you are drinking?Patient does not drink10/05/2023Q3: How often do you have six or more drinks on one occasion?Never10/05/2023UDIT-CAnswerDate RecordedQ1: How often do you have a drink containing alcohol?Never11/17/2024Q2: How many drinks containing alcohol do you have on a typical day when you are drinking?Patient does not drink11/17/2024Q3: How often do you have six or more drinks on one occasion?Never11/17/2024Interpersonal Safety Domain Source: IP Abuse ScreeningAnswerDate RecordedPhysical acmlyYckhcb10/18/2025Verbal abuse Gepbbr2411/17/2024Emotional gjocxJuoybv99/18/2025Financial mdpqbBxdvxf69/18/2025 Sexual lmkhnEstiqn55/18/2025CommentsNoSex and Gender InformationValue Date RecordedSex Assigned at BirthNot on fileLegal LzlFnpfex56/10/2013 2:04 PM ESTGender IdentityNot on fileSexual OrientationNot on file Last Filed Vital Signs Vital SignReadingTime TakenCommentsBlood Fmlnwbzu370/5209 9:27 AM EDT Tcltt180611/18/2024 9:27 AM SRBViktonfnqnb06.5 ??C (97.7 ??F)11/18/2024 9:27 AM EDTRespiratory Fcyq894611/17/2024 11:27 PM EDTOxygen Kwmmyydoqu93%11/17/2024 11:29 PM EDTInhaled Oxygen Concentration--Ecophb354.3 kg (230 lb)11/17/2024 8:58 PM VJPMdiown248 cm (5' 3 )11/17/2024 8:58 PM EDTBody Mass Index40.7411/17/2024 8:58 PM EDT Plan of Treatment DateTypeDepartmentCare Team (Latest Contact Info)Skqhafibwkf48/30/2025 11:00 AM EDTOffice Visit [facility] Part of [address] [place] [address] Yudi Gomez, MOTORBOAT MECHANIC HELPER - GLASSWARE DEFECT REPAIRER [address] [place] [address] [address] [place] [address] 6w KUB/ KUB Reminder 12/21 BLHealth MaintenanceDue DateLast DoneCommentsLipids 1990Depression Trukar9509/24/1992Varicella vaccine (1 of 2 - 13+ 2-dose series)1993HIV xpchas5409/25/1995Hepatitis C lmaaxz5209/24/1998Pap smear 2001Cervical cancer qbzxfc3409/24/2010HPV (without or with Pap)2010 Diabetes hxsras0009/25/2015Flu vaccine (#1)510/08/2023, 12/22/2022, 12/23/2021, Additional history existsBreast cancer lmphtp71601/, 2DTaP/Tdap/Td vaccine (2 - Td or Tdap)/05/2021, 09/02/2021 Pneumococcal 0-49 years VaccineAged Out02/07/2022, 12/02/2017No longer eligible based on patient's age to complete this topicHepatitis A vaccineAged Out 05/25/2023, 12/22/2022, 06/23/2022No longer eligible based on patient's age to complete this topicHepatitis B ldqbkyhZwwwxxdbs66/25/2024, 12/22/2022, 06/23/2022OVID-19 FqopfaiJaobsxizh13/07/2024, 12/22/2022, 02/07/2022HPV vaccine (No Doses Required)CompletedHib vaccineAged OutNo longer eligible based on patient's age to complete this topicMeningococcal (ACWY) vaccineAged OutNo longer eligible based on patient's age to complete this topicMeningococcal B vaccineAged OutNo longer eligible based on patient's age to complete this topic Polio vaccineAged OutNo longer eligible based on patient's age to complete this topic Medical Devices ImplantedTypeAreaManufacturerDevice IdentifierShelf Expiration DateModel / Serial / LotStent Uret 6fr L24cm Hydr+ Grad Circumferential Mrk Lo Prof - [id number] Implanted:Qty: 1 on 11/15/2024 by [facility] UreterBOSTON SCI UROLOGY-WD04/12/[id number] / / [id number] Procedures Procedure NamePriorityDate/TimeAssociated DiagnosisCommentsXR ABDOMEN (KUB) (SINGLE AP VIEW)Ubmfwxx6912/22/2024 12:27 PM EDT Renal calculus CT ABDOMEN PELVIS W IV PYZZFJHGWXRQ82/18/2025 10:05 PM EDT XR WRIST RIGHT (MIN 3 VIEWS)STAT11/17/2024 10:02 PM EDT MICROSCOPIC BGKBBSAXNMCfujxmy62/18/2025 9:50 PM EDT , EVHSMAWKN67/18/2025 9:50 PM EDT PXFQGOQJZRJMNW44/18/2025 9:50 PM EDT LIPASEAdd-On11/17/2024 9:35 PM EDT HEPATIC FUNCTION PANELAdd-On11/17/2024 9:35 PM EDT BASIC METABOLIC HVIVKGOYW37/18/2025 9:35 PM EDT CBC WITH AUTO DOEWQFULBEAAMHTU03/18/2025 9:35 PM EDT FLUORO FOR SURGICAL OJFYQIFMZJPuvwcrg93/16/2025 5:32 PM EDT GLUCOSE, WHOLE GQRUIWqxmcut13/16/2025 5:29 PM EDT STONE SOAMFRRMNfltnxg07/16/2025 5:05 PM EDT Ureteral stone with hydronephrosis DE CYSTO/URETERO W/LITHOTRIPSY &INDWELL STENT INSRT11/15/2024 4:30 PM EDT Ureteral stone with hydronephrosis Special Needs pre op ekg ordered/ will arrive at 3pm per Costa Smiley RN. also reviewed NPO instructionFlorence Community Healthcaret med #[id number] Bi GLUCOSE, WHOLE QSLVYJdvzdnm63/16/2025 3:12 PM EDT EKG 12-USMTQzhhfqf72/16/2025 11:10 AM EDT Pre-op testing URINALYSIS WITH PSPYXEGFKJZXidrspd27/15/2025 6:50 PM EDT Gross hematuria BASIC METABOLIC MNEDUOnxshvo80/15/2025 6:50 PM EDT Gross hematuria Renal colic CBC WITH AUTO YXOQLDJMVETPTzksscg68/15/2025 6:50 PM EDT Gross hematuria Renal colic CULTURE, PYXHLRcuihhf98/15/2025 6:50 PM EDT Gross hematuria CT ABDOMEN PELVIS WO GCRDPRJKSKRX62/15/2025 6:22 PM EDT Gross hematuria Renal colic XR ABDOMEN (KUB) (SINGLE AP VIEW)Aluisgy8611/07/2024 4:21 PM EDT Renal calculus from Last 3 Months Results * XR ABDOMEN (KUB) (SINGLE AP VIEW) (12/22/2024 12:27 PM EDT) Only the most recent of2 resultswithin the time period is included. Anatomical RegionLateralityModalityAbdomenComputed RadiographySpecimen (Source) Anatomical Location / LateralityCollection Method / VolumeCollection Time Received Time12/27/2024 8:56 AM EDT Impressions 12/27/2024 8:57 AM [...] acute findings. Authorizing ProviderResult TypeResult StatusBethnithya Cotter MOTORBOAT MECHANIC HELPER - CNPIMG DIAGNOSTIC IMAGING ORDERABLESFinal Result * CT ABDOMEN PELVIS W IV CONTRAST Additional Contrast? None (11/17/2024 10:05 PM EDT)Anatomical RegionLateralityModalityAbdomen, Pelvis, HipComputed Tomography Specimen (Source)Anatomical Location / LateralityCollection Method / Volume Collection TimeReceived Time11/17/2024 10:55 PM EDT Impressions 11/17/2024 10:59 PM EDT [...] pathway ofeither ureter; no hydronephrosis. Contrast Dosage Authorizing ProviderResult TypeResult StatusIlycosta Echavarria [facility] ORDERABLESFinal Result * XR WRIST RIGHT (MIN 3 VIEWS) (11/17/2024 10:02 PM EDT)Anatomical Region LateralityModalityForearm, Wrist, HandComputed RadiographySpecimen (Source) Anatomical Location / LateralityCollection Method / VolumeCollection Time Received Time11/17/2024 10:35 PM EDT Impressions 11/17/2024 10:39 PM EDT Small focus of lucency and surrounding punctate areas of increased density projecting along the proximal pole the scaphoid bone which could be due to prior trauma or postop changes but is indeterminate. ??Recommend orthopedic follow-up Mild widening of the scapholunate space suggestive of ligamentous instability with no obvious acute fracture. ??Recommend follow-up. 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 Narrative 11/17/2024 10:39 PM EDT EXAMINATION: 3 XRAY VIEWS OF THE RIGHT WRIST 11/17/2024 10:02 pm COMPARISON: None HISTORY: ORDERING SYSTEM PROVIDED HISTORY: Increased pain TECHNOLOGIST PROVIDED HISTORY: Increased pain FINDINGS: There is mild narrowing of the radiocarpal joint. ??The visualized distal radius and ulna are intact. ??There is mild widening of the scapholunate space. ??The bones are osteopenic. ??There is an ill-defined small focus of lucency with surrounding punctate areas of increased density along the proximal pole of the scaphoid bone which is very ill-defined. ??There is mild soft tissue swelling around the [...] along the radiocarpal joint and diffuse osteopenia. Authorizing ProviderResult TypeResult StatusKatea Italia [facility] ORDERABLESFinal Result * (ABNORMAL) Microscopic Urinalysis (11/17/2024 9:50 PM EDT)ComponentValueRef RangeTest MethodAnalysis TimePerformed AtPathologist SignatureWBC, UA5 TO 100 - 5 /HPF11/17/2024 9:50 PM [facility] LABRBC, UAGREATER THAN 1000 - 2 /HPF11/17/2024 9:50 PM [facility] Epithelial Cells, UA0 TO 20 - 25 /HPF11/17/2024 9:50 PM [facility] LABBacteria, UA3+(A)None11/17/2024 9:50 PM [facility] LABSpecimen (Source)Anatomical Location / LateralityCollection Method / VolumeCollection TimeReceived Time11/17/2024 9:50 PM EDT11/17/2024 10:40 PM EDT Narrative Authorizing ProviderResult TypeResult StatusBenja GRIDER ORDERABLESFinal ResultPerforming OrganizationAddressCity/State/ZIP CodePhone Number [facility] [address] [place] [address], [facility] [phone] * Urine Preg (Lab) (11/17/2024 9:50 PM EDT)ComponentValueRef RangeTest Method Analysis TimePerformed AtPathologist SignaturePregnancy, UrineNEGATIVENEGATIVE 11/17/2024 9:50 PM [facility] LABComment: Specimens with hCG levels near the threshold of the test (25 mIU/mL) may give a negative or indeterminate result. ??In such cases, another test should be performed with a new specimen in 48-72 hours. ??If early is suspected clinically in this setting, correlation with quantitative serum b-hCG level is suggested. Specimen (Source)Anatomical Location / LateralityCollection Method / Volume Collection TimeReceived TimeUrine (Urine)11/17/2024 9:50 PM EDT11/17/2024 10:40 PM EDT Narrative Authorizing ProviderResult TypeResult StatusBenja GRIDER ORDERABLESFinal ResultPerforming OrganizationAddressCity/State/ZIP CodePhone Number [facility] [address] [place] [address], [facility] [phone] * (ABNORMAL) Urinalysis (11/17/2024 9:50 PM EDT)ComponentValueRef RangeTest MethodAnalysis TimePerformed AtPathologist SignatureColor, UARed(A)Yellow 11/17/2024 9:50 PM [facility] LABTurbidity UACloudy(A) Clear11/17/2024 9:50 PM [facility] LABGlucose, Ur3+(A) NEGATIVE mg/dL11/17/2024 9:50 PM [facility] LABBilirubin, IsselAEEBGAQRGWKQYTER94/18/2025 9:50 PM [facility] Ketones, UrineTRACE(A)NEGATIVE mg/dL11/17/2024 9:50 PM [facility] LABSpecific [place], UA1.0201.010 - 1.6906111/17/2024 9:50 PM [facility] LABUrine Hgb3+(A)GGMOCRFO29/18/2025 9:50 PM [facility] LABpH, Urine5.55.0 - 9.009 9:50 PM [facility] LABProtein, UA2+(A)NEGATIVE mg/dL11/17/2024 9:50 PM EDT [facility] LABUrobilinogen, UrineNormal0.0 - 1.0 EU/dL 11/17/2024 9:50 PM [facility] LABNitrite, UrinePOSITIVE (A)VWYZNEXH11/18/2025 9:50 PM [facility] LABLeukocyte Esterase, UrineSMALL(A)DGTFBECB39/18/2025 9:50 PM [facility] LABCommentResults may be affected due to urine color interference. 11/17/2024 9:50 PM [facility] LABSpecimen (Source) Anatomical Location / LateralityCollection Method / VolumeCollection Time Received TimeUrineURINE SPECIMEN / Kzgaefw0711/17/2024 9:50 PM EDT11/17/2024 10:40 PM EDT Narrative Authorizing ProviderResult TypeResult StatusBenja Echavarria MDURINE ORDERABLESFinal ResultPerforming OrganizationAddressCity/State/ZIP CodePhone Number [facility] [address] [phone] * (ABNORMAL) CBC with Auto Differential (11/17/2024 9:35 PM EDT) Only the most recent of2 resultswithin the time period is included. ComponentValueRef RangeTest MethodAnalysis TimePerformed AtPathologist Signature WBC14.1(H)3.5 - 11.3 k/uL11/17/2024 9:35 PM [facility] RBC4.463.95 - 5.11 m/uL11/17/2024 9:35 PM [facility] Uwcaypaece45.711.9 - 15.1 g/dL11/17/2024 9:35 PM [facility] GGLHgnbbnonob25.836.3 - 47.1 %11/17/2024 9:35 PM [facility] EKBHAK09.082.6 - 102.9 fL11/17/2024 9:35 PM [facility] MCH28.525.2 - 33.5 pg11/17/2024 9:35 PM [facility] LABMCHC 32.728.4 - 34.8 g/dL11/17/2024 9:35 PM [facility] LABRDW 15.0(H)11.8 - 14.4 %11/17/2024 9:35 PM [facility] Iaoamfsst519899 - 453 k/11/17/2024 9:35 PM [facility] MPV10.38.1 - 13.5 [place]11/17/2024 9:35 PM [facility] LABNRBC Automated0.00.0 per 100 WBC11/17/2024 9:35 PM [facility] LABNeutrophils %66(H)36 - 65 %11/17/2024 9:35 PM [facility] LABLymphocytes %2424 - 43 %11/17/2024 9:35 PM [facility] LABMonocytes %53 - 12 %11/17/2024 9:35 PM [facility] Eosinophils %31 - 4 %11/17/2024 9:35 PM [facility] Basophils %10 - 2 %11/17/2024 9:35 PM [facility] Immature Granulocytes %1(H)0 %11/17/2024 9:35 PM [facility] LABNeutrophils Absolute9.43(H)1.50 - 8.10 k/uL11/17/2024 9:35 PM [facility] LABLymphocytes Absolute3.361.10 - 3.70 k/uL11/17/2024 9:35 PM [facility] LABMonocytes Absolute0.690.10 - 1.20 k/uL 11/17/2024 9:35 PM [facility] LABEosinophils Absolute0.38 0.00 - 0.44 k/11/17/2024 9:35 PM [facility] LABBasophils Absolute0.070.00 - 0.20 k/11/17/2024 9:35 PM [facility] LABImmature Granulocytes Absolute0.130.00 - 0.30 k/11/17/2024 9:35 PM [facility] LABSpecimen (Source)Anatomical Location / Laterality Collection Method / VolumeCollection TimeReceived TimeBloodBLOOD SPECIMEN / Zqnhzwn1511/17/2024 9:35 PM EDT11/17/2024 9:38 PM EDT Narrative Authorizing ProviderResult TypeResult Pinky Echavarria MDHEMATOLOGY ORDERABLES Final ResultPerforming OrganizationAddressCity/State/ZIP CodePhone Number [facility] [address] [place] [address] * Lipase (11/17/2024 9:35 PM EDT)ComponentValueRef RangeTest MethodAnalysis Time Performed AtPathologist HtadntjzoWbbbdy9208 - 60 U/L11/17/2024 9:35 PM EDT [facility] LABSpecimen (Source)Anatomical Location / LateralityCollection Method / VolumeCollection TimeReceived TimeBloodBLOOD SPECIMEN / Hxnwzht8511/17/2024 9:35 PM EDT11/17/2024 11:12 PM EDT Narrative Authorizing ProviderResult TypeResult Pinky Echavarria MDCHEMISTRY ORDERABLES Final ResultPerforming OrganizationAddressCity/State/ZIP CodePhone Number [facility] [address] [place] [address] * (ABNORMAL) Hepatic Function Panel (11/17/2024 9:35 PM EDT)ComponentValueRef RangeTest MethodAnalysis TimePerformed AtPathologist SignatureAlbumin3.93.5 - 5.2 g/dL11/17/2024 9:35 PM [facility] LABAlkaline Iqggeupbxbe76124 - 104 U/L11/17/2024 9:35 PM [facility] PTXQUX36(H)10 - 35 U/L11/17/2024 9:35 PM [facility] XUL1460 - 35 U/L11/17/2024 9:35 PM [facility] LABTotal Bilirubin<0.20.00 - 1.20 mg/dL11/17/2024 9:35 PM [facility] LABBilirubin, Direct<0.20.00 - 0.30 mg/dL11/17/2024 9:35 PM [facility] LABBilirubin, IndirectCan not be calculated0.0 - 1.0 mg/dL11/17/2024 9:35 PM [facility] LABTotal Protein6.96.6 - 8.7 g/dL11/17/2024 9:35 PM [facility] Albumin/Globulin Ratio1.31.0 - 2. 9:35 PM [facility] LABSpecimen (Source)Anatomical Location / LateralityCollection Method / VolumeCollection TimeReceived TimeBloodBLOOD SPECIMEN / Jdahctj9211/17/2024 9:35 PM EDT11/17/2024 11:12 PM EDT Narrative Authorizing ProviderResult TypeResult StatusIlya Italia MDCHEMISTRY ORDERABLES Final ResultPerforming OrganizationAddressCity/State/ZIP CodePhone Number [facility] [address] [id number], [facility] [phone] * (ABNORMAL) BMP (11/17/2024 9:35 PM EDT) Only the most recent of2 resultswithin the time period is included. ComponentValueRef RangeTest MethodAnalysis TimePerformed AtPathologist Signature [id number] - 145 mmol/L11/17/2024 9:35 PM [facility] Potassium3.73.7 - 5.3 mmol/L11/17/2024 9:35 PM [facility] PWGLwarthad56256 - 107 mmol/L11/17/2024 9:35 PM [facility] HEUQL25429 - 31 mmol/L11/17/2024 9:35 PM [facility] Anion Hca428 - 16 mmol/L11/17/2024 9:35 PM [facility] Rdanznp369(H)74 - 99 mg/dL11/17/2024 9:35 PM [facility] BBT153 - 20 mg/dL11/17/2024 9:35 PM [facility] Creatinine0.70.50 - 0.90 mg/dL11/17/2024 9:35 PM [facility] LABEst, Glom Filt Rate>90>60 mL/min/1.64h42311/17/2024 9:35 PM [facility] LABComment: ? These results are not intended for use in patients <18 years of age. ? eGFR results are calculated without a race factor using the 2020 CKD-EPI equation. Careful clinical correlation is recommended, particularly when comparing to results calculated using previous equations. The CKD-EPI equation is less accurate in patients with extremes of muscle mass, extra-renal metabolism of creatine, excessive creatine ingestion, or following therapy that affects renal tubular secretion. BUN/Creatinine Ratio21(H) 9:35 PM [facility] LABCalcium8.88.6 - 10.4 mg/dL11/17/2024 9:35 PM [facility] LABSpecimen (Source)Anatomical Location / LateralityCollection Method / VolumeCollection TimeReceived TimeBloodBLOOD SPECIMEN / Cdkrgxi6511/17/2024 9:35 PM EDT11/17/2024 9:38 PM EDT Narrative Authorizing ProviderResult TypeResult StatusBenja Echavarria MDCHEMISTRY ORDERABLES Final ResultPerforming OrganizationAddressCity/State/ZIP CodePhone Number [facility] [address] [phone] * FLUORO FOR SURGICAL PROCEDURES (11/15/2024 5:32 PM EDT)Specimen (Source) Anatomical Location / LateralityCollection Method / VolumeCollection Time Received Time Narrative [facility] - 11/15/2024 5:32 PM EDT Radiology exam is complete. No Radiologist dictation. Please follow up with ordering provider. Authorizing ProviderResult TypeResult StatusMurphyaugusto Sia MDIMG FLUOROSCOPY ORDERABLESFinal ResultPerforming OrganizationAddressCity/State/ZIP CodePhone Number [facility] * Glucose, Whole Blood (11/15/2024 5:29 PM EDT) Only the most recent of2 resultswithin the time period is included. ComponentValueRef RangeTest MethodAnalysis TimePerformed AtPathologist Signature POC Tkpdlxw3293 - 100 mg/dL11/15/2024 5:29 PM [facility] LABSpecimen (Source)Anatomical Location / LateralityCollection Method / Volume Collection TimeReceived Time11/15/2024 5:29 PM EDT11/15/2024 5:36 PM EDT Narrative Authorizing ProviderResult TypeResult StatusFaheem Stovall MDCHEMISTRY ORDERABLESFinal ResultPerforming OrganizationAddressCity/State/ZIP CodePhone Number [facility] [address] [place] [address] * Stone Analysis (11/15/2024 5:05 PM EDT)ComponentValueRef RangeTest Method Analysis TimePerformed AtPathologist SignatureStone CompositionSee Note 11/15/2024 5:05 PM EDTARUP LABORATORYComment: (NOTE) Calculi composed primarily of calcium oxalate monohydrate. INTERPRETIVE INFORMATION: Calculi (Stone) analysis Calculi are the products of physiological processes that yield crystalline compounds in a matrix of biological compounds and blood. ??Matrix components are not reported. ??The clinically significant crystalline components identified in calculi specimens are reported. ??Gross description may not be consistent with composition determined by FTIR analysis. Performed By: [facility] [employer] [address] [place] [id number] Medical Office Technologist: Tony Rodrigez MD, PhD CLIA Number: [id number] Stone Qkhn96mp92/16/2025 5:05 PM EDTARUP LABORATORYStone DescriptionSee Note 11/15/2024 5:05 PM EDTARUP LABORATORYComment: (NOTE) Specimen consists of one brown and gonzalez calculus. The total weight is 21 mg. Specimen (Source)Anatomical Location / LateralityCollection Method / Volume Collection TimeReceived TimeStone (Calculus)URETHRAL SWAB / Uraxere7111/15/2024 5:05 PM EDTComment:Pre-op diagnosis: Ureteral stone with hydronephrosis [N13.2] Narrative Authorizing ProviderResult TypeResult StatusThomas Sia MDMICROBIOLOGY - GENERAL ORDERABLESFinal ResultPerforming OrganizationAddressCity/State/ZIP Code Phone Number [facility] [address] [place], [place] [address] [phone] [facility] [address] [place], [place] [address] [phone] * EKG 12 Lead (11/15/2024 11:10 AM EDT)ComponentValueRef RangeTest Method Analysis TimePerformed AtPathologist SignatureVentricular Wkhv83XZXSCDV [facility] RADIOLOGYAtrial Hjlt67XEUPRNB [facility] RADIOLOGYP-R Iyxggqmh210vyCRCZ [facility] RADIOLOGY QRS Eqbmlmoo14axUBUJ [facility] RADIOLOGYQ-T Mkqsaffn169duOKSF [facility] RADIOLOGYQTc Calculation (Bazett)435msMHPN [facility] RADIOLOGYP Gcdu95iboensdPNBS [facility] RADIOLOGYR Pmfb30sjqltkfLHRL [facility] RADIOLOGYT Swpe61rtzwuejDMLJ [facility] RADIOLOGYSpecimen (Source)Anatomical Location / LateralityCollection Method / VolumeCollection TimeReceived Time11/15/2024 11:10 AM EDT Narrative [facility] - 11/15/2024 11:10 PM EDT Normal sinus rhythm Normal ECG When compared with ECG of 13-Jan-2024 14:59, No significant change was found Confirmed by Baltazar Keith ([id number]) on 11/15/2024 11:10:53 PM Procedure Note Baltazar Keith MD - 11/15/2024 Normal sinus rhythm Normal ECG When compared with ECG of 13-Jan-2024 14:59, No significant change was found Confirmed by Baltazar Keith ([id number]) on 11/15/2024 11:10:53 PM Authorizing ProviderResult TypeResult StatusBemurphynithya Cotter MOTORBOAT MECHANIC HELPER - CNPECG ORDERABLESFinal ResultPerforming OrganizationAddressCity/State/ZIP CodePhone Number [facility] * (ABNORMAL) Urinalysis with Microscopic (11/14/2024 6:50 PM EDT)ComponentValue Ref RangeTest MethodAnalysis TimePerformed AtPathologist SignatureColor, UA BbnggvKtybkw39/15/2025 6:50 PM [facility] LABTurbidity UA Turbid(A)Clear11/14/2024 6:50 PM [facility] LABGlucose, Ur3+(A)NEGATIVE mg/dL11/14/2024 6:50 PM [facility] Bilirubin, UeuvsQYANGQRYUISUWRHR06/15/2025 6:50 PM [facility] LABKetones, UrineTRACE(A)NEGATIVE mg/dL11/14/2024 6:50 PM [facility] LABSpecific [place], UA1.0101.010 - 1.2721811/14/2024 6:50 PM [facility] LABUrine Hgb3+(A)BLIAAXDH41/15/2025 6:50 PM [facility] LABpH, Urine6.55.0 - 9.009 6:50 PM [facility] LABProtein, UA1+(A)NEGATIVE mg/dL 11/14/2024 6:50 PM [facility] LABUrobilinogen, Urine Normal0.0 - 1.0 EU/dL11/14/2024 6:50 PM [facility] Nitrite, UnhfpGJVDRZFQKIQXEPUF43/15/2025 6:50 PM [facility] LABLeukocyte Esterase, JeovgWXFXDVVJUAXLQZEH52/15/2025 6:50 PM EDT [facility] LABWBC, UA0 TO 20 - 5 /HPF11/14/2024 6:50 PM EDT [facility] LABRBC, UAGREATER THAN 1000 - 2 /HPF11/14/2024 6:50 PM [facility] LABEpithelial Cells, UA0 TO 20 - 25 /HPF11/14/2024 6:50 PM [facility] LABBacteria, UA1+(A) None11/14/2024 6:50 PM [facility] LABSpecimen (Source) Anatomical Location / LateralityCollection Method / VolumeCollection Time Received TimeUrineURINE SPECIMEN / Nnpmsju5811/14/2024 6:50 PM EDT11/14/2024 7:10 PM EDT Narrative Authorizing ProviderResult TypeResult StatusGeorges IRVING ORDERABLESFinal ResultPerforming OrganizationAddressCity/State/ZIP CodePhone Number [facility] [address] [phone] * (ABNORMAL) Culture, Urine (11/14/2024 6:50 PM EDT)ComponentValueRef RangeTest MethodAnalysis TimePerformed AtPathologist SignatureSpecimen Description.CLEAN CATCH URINE11/14/2024 6:50 PM [facility] LABSpecial RequestsSite: Urine11/14/2024 6:50 PM [facility] CultureSTREPTOCOCCUS AGALACTIAE (GROUP B) <17999 CFU/ML Group B strep is identified at any colony countin a female who could potentially be based on age only. Group B strep isolated in urine atany colony count is considered a surrogate for vaginal rectal colonization in the context of determining quincy- therapy. Treatment for UTI or asymptomatic bacteriuria should be based on colony count and clinical symptoms and not on the presence of the organism alone. Identification by MALDI-TOF(A)11/14/2024 6:50 PM EDT [facility] LABORATORIESSpecimen (Source)Anatomical Location / LateralityCollection Method / VolumeCollection TimeReceived TimeUrineURINE SPECIMEN / Unknown 11/14/2024 6:50 PM EDT11/14/2024 7:10 PM EDT Narrative Authorizing ProviderResult TypeResult StatusKyle D Dorkoskie PA-CMICROBIOLOGY - GENERAL ORDERABLESFinal ResultPerforming OrganizationAddressCity/State/ZIP Code Phone Number [facility] [address] [place] [address], [facility] [phone] [place] [id number] [place], [place] [address] [phone] * CT ABDOMEN PELVIS WO CONTRAST Additional Contrast? None (11/14/2024 6:22 PM EDT)Anatomical RegionLateralityModalityAbdomen, Pelvis, HipComputed Tomography Specimen (Source)Anatomical Location / LateralityCollection Method / Volume Collection TimeReceived Time11/14/2024 9:25 PM EDT Impressions 11/14/2024 9:29 PM [...] intravenous contrast. Multiplanar reformatted images are provided forreview. [...] ureter with borderline righthydroureter. 2. Fatty liver. Authorizing ProviderResult TypeResult StatusGeorges [facility] ORDERABLESFinal Result from Last 3 Months Insurance Advance Directives * Full Code (Latest Code Status on File) Date ActivatedDate [facility]11/15/2024 3:11 PM11/15/2024 8:41 PM Care Teams Team MemberRelationshipSpecialtyStart DateEnd Date Loreto Mcneal APRN - [place] GIRL [address] [place] [address] [facility]11/11/23
--- OUTSIDE RECORDS SUMMARY | 2024-12-28 06:51 | XMS_ITS | Clinical Summary ---
Author Organization [facility] Address [address] [place] [address] Care Team Providers Care Sql Ssis Developer Name Role Phone Key Andrea SELF SEALING FUEL TANK REPAIRER Unavailable Shawna Dudley DO Primary Care Provider [phone] Sasha Santos DO Unavailable [phone] Mendez Ortiz DO Unavailable [phone] Allergies Active AllergyReactionsCriticalityNoted DateCommentsCephalexinHivesHigh 07/14/2013 Other Reaction(s): Other: See Comments, Unknown Shortness of breath, throat felt tight Other Reaction(s): Swelling of Lip/Tongue/Throat, hives Mgvpndbkph58/15/2014 Other Reaction(s): Other: See Comments, Unknown palpitations Other Reaction(s): Palpitations, anaphylaxis XovrxaxfoIovx39/14/2023 Severe hypoglycemia Metformin And Knomvvy8004/20/2023 Other Reaction(s): Other (See Comments), Unknown Reaction Hypoglycemia Poison Devorah Uxygoum1204/15/2022 Medications MedicationSigDispense QuantityRefillsLast FilledStart DateEnd DateStatus traMADol (Ultram) 50 MG tablet Take 50 mg by mouth Daily as mshggp2501/21/2023ctive traZODone (Desyrel) 50 MG tablet Take 50-100 mg by mouth at bedtimeActive rosuvastatin (Crestor) 10 MG tablet Take 10 mg by mouth DailyActive Probiotic Product (Align) capsule Take 1 capsule by mouth Daily02/16/2023ctive naproxen (Naprosyn) 500 MG tablet Take 500 mg by mouth in the morning and 500 mg in the evening. Take with meals. 12/02/2022ctive Multiple Vitamin (Tab-A-Karely) tablet Take 1 tablet by mouth Daily12/26/2022ctive lurasidone (Latuda) 120 MG tablet Take 80 mg by mouth Daily Take with food.Active Vyvanse 70 MG capsule Take 70 mg by mouth Daily02/27/2023ctive lamoTRIgine (LaMICtal) 200 MG tablet Take 200 mg by mouth DailyActive fluticasone (Flonase) 50 MCG/ACT nasal spray Administer 1 spray into each nostril 1 (one) time each day at the same time Active FLUoxetine (PROzac) 60 MG tablet Take 60 mg by mouth DailyActive fexofenadine (Ros) 180 MG tablet Take 180 mg by mouth Daily02/24/2023ctive docusate sodium (Colace) 100 MG capsule Take 300 mg by mouth in the morning and 300 mg in the evening and 300 mg before bedtime.Active cholecalciferol (Vitamin D-3) 50 MCG (2000 UT) capsule Take 2,000 Units by mouth Daily02/24/2023ctive ascorbic acid (Vitamin C) 500 MG tablet Take 500 mg by mouth in the morning and 500 mg before bedtime.02/24/2023ctive albuterol HFA (Ventolin HFA) 90 mcg/act inhaler Inhale 1 puff every 4 (four) hours if neededActive linaCLOtide (Linzess) 290 MCG capsule Take 290 mcg by mouth in the morning. Take before meals. Do not crush or chew. Active DULoxetine (Cymbalta) [address] capsule Take 60 mg by mouth in the morning and 60 mg before bedtime. Do not crush or chew.Active cyclobenzaprine (Flexeril) 10 MG tablet Take 10 mg by mouth as needed in the morning and 10 mg as needed at noon and 10 mg as needed in theevening for muscle spasms.11/16/2023ctive diclofenac (Voltaren) 75 MG EC tablet Take 75 mg by mouth as needed in the morning and 75 mg as needed in the evening. 11/16/2023ctive mupirocin (Bactroban) 2 % ointment Indications:Chronic rhinitisapply to left nose TWICE DAILY for 2 (TWO) weeks NEEDED 15 g 5Active gabapentin (Neurontin) 300 MG capsule Indications:Paresthesias1 po 2-3 times a day. 90 capsule 5Active metoprolol succinate XL (Toprol-XL) 25 MG 24 hr tablet 5Active ciclopirox (Loprox) 0.77 % cream Indications:Rash and other nonspecific skin eruptionAPPLY TO THE AFFECTED AREA(S) TWICE DAILY 90 g 5Active B Complex Vitamins (vitamin B complex) tablet Take 1 tablet by mouth Daily5Active pantoprazole (ProtoNix) 40 MG EC tablet Take 40 mg by mouth in the morning. Take before meals. Do not crush, chew, or split.Active lansoprazole (Prevacid) [address] capsule Take 30 mg by mouth Daily5Active SUMAtriptan (Imitrex) 100 MG tablet Indications:Migraine with aura and without status migrainosus, not intractable TAKE 1 TABLET BY MOUTH DAILY NEEDED FOR MIGRAINE 9 tablet 5Active Mounjaro 2.5 MG/0.5ML solution auto-injector Indications:Type 2 diabetes mellitus without complication, unspecified whether retirement insulin use ([facility])INJECT 2.5 MG SUBCUTANEOUSLY (UNDER THE SKIN) EVERY 7 DAYS 2 mL 5Active ferrous sulfate 28 MG tablet Indications:Other osteoporosis without current pathological fracture,Other iron deficiency anemiaTake 1 tablet (28 mg) by mouth in the morning. Take with meals. 30 tablet 1105Active Calcium Carbonate-Vit D-Min (Calcium 1200) 6957-6773 MG-UNIT chewable tablet Indications:Osteopenia, unspecified locationChew 1,200 mg Daily 90 tablet 506Active empagliflozin (Jardiance) 25 MG Indications:Type 2 diabetes mellitus with hyperglycemia, without long-term current use of insulin ([facility])Take 1 tablet (25 mg) by mouth Daily 30 tablet 5Active pioglitazone (Actos) 30 MG tablet Indications:Type 2 diabetes mellitus with hyperglycemia, without long-term current use of insulin ([facility])Take 1 tablet (30 mg) by mouth Daily 30 tablet 5Active semaglutide (Ozempic, 0.25 or 0.5 MG/DOSE,) 2 MG/1.5ML solution pen-injector Indications:Type 2 diabetes mellitus with hyperglycemia, without long-term current use of insulin (HCC)Inject 0.5 mg under the skin 1 (one) time per week 4.5 mL 11014/883492/6Active empagliflozin (Jardiance) 25 MG Indications:Type 2 diabetes mellitus without complication, unspecified whether retirement insulin use (HCC)Take 1 tablet (25 mg) by mouth Daily 30 tablet Discontinued(Reorder) pioglitazone (Actos) 30 MG tablet Indications:Type 2 diabetes mellitus without complication, 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 (HCC)Take 1 tablet (30 mg) by mouth Daily 30 tablet Discontinued(Reorder) semaglutide (Ozempic, 0.25 or 0.5 MG/DOSE,) 2 MG/1.5ML solution pen-injector Indications:Type 2 diabetes mellitus without complication, unspecified whether retirement insulin use (HCC)Inject 0.5 mg under the skin 1 (one) time per week 4.5 mL Discontinued(Reorder) Active Problems ProblemNoted DateDiagnosed EsafVhdyuiadpgob03/02/2025Type 2 diabetes mellitus with hyperglycemia, without long-term current use of jdoyuxe3512/01/2024Other osteoporosis without current pathological uwumsqhh85/03/2025Vitamin D deficiency, lrkqfdfsjdy59/12/2024Hyperlipidemia, mvrczwhbnup08/12/2024Well woman exam with routine gynecological exam05/25/20234743Qkzfjm95/09/2091Wieral10/09/2024 Bilateral foot pain4Chronic rtgeniah76/09/5216Faipvtfiljivwe60/09/2024 Hdtfaoa94/09/2024Primary osteoarthritis, left ankle and foot4Recurrent pqvterugw12/09/2024Intervertebral disc stenosis of neural canal of cervical jvtfav423Axillary wlclinqaltkhxzr61/11/2021Disc displacement, lumbar 10/11/2018 Overview (03/10/2023): Added automatically from request for surgery [id number] Lumbosacral spondylosis without brfyxywqsd48/23/2019 Overview (03/10/2023): Added automatically from request for surgery [id number] PTSD (post-traumatic stress disorder)06/16/2018Cervical disc displacement 09/21/2017Acute ulymqlahihvwx08/17/2017 Resolved Problems ProblemNoted DateDiagnosed DateResolved DateBipolar 1 disorder, mixed, moderate Elevated liver function testsFatty liver History of kidney rmtnvu66onstipation Irritable bowel syndrome with nbvynwmegcuw31/18/2025 08/17/2024Musculoskeletal chest painOther chronic pain Postoperative painReactive hypoglycemia ttention deficit hyperactivity jadklycy50 Circadian rhythm sleep disorder, shift work typeImpulse control iujqyzbs95Mixed bipolar affective disorder, moderate Type II diabetes mellitus with kesfteleygxf07/12/2024 12/01/20246201Lehkocyjcbf87Mass of upper outer quadrant of right ldmile02Symptomatic mammary ikyuitldety73Hot eoubpaf54Open wound of toe without ngtbmkbmaopn24/09/2024 03/10/2023isorder of xhedei23Type 2 diabetes mellitus without orytcvforgxln57Postoperative nnijqww35 Encounters DateTypeDepartmentCare WmybXrmrbxeuayv12/22/2025bstract [facility] [address] [place] [address] Alissa Atkins MA 12/08/2024Telephone [facility] [address] [place] [address] Cleo Zambrano MD Med Ftlnjp9812/01/2024 11:00 AM EDTOffice Visit [facility] [address] [place] [address] Cleo Zambrano MD Type 2 diabetes mellitus with hyperglycemia, without long-term current use of insulin (HCC) (Primary Dx); Vitamin D deficiency; Weight gain; Encounter for dietary consultation; Hyperlipemia, mixed; Diabetes mellitus with complication (HCC); Brvdwvnwibkj69/02/2025Refill [facility] [address] [place] [address] Pilar Valdez LPN Type 2 diabetes mellitus with hyperglycemia, without long-term current use of insulin (HCC)12/01/2024amboo flowsheet [facility] [address] [place] [address] Cleo Zambrano MD 11/24/2024Telephone [facility] [address] [place] [address] Roel Garber DO 11/21/2024Orders Only [facility] [address] [place] [address] Cleo Zambrano MD Type 2 diabetes mellitus without complication, 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 (HCC) (Primary Dx)11/16/2024Telephone [facility] [address] [place] [address] Cleo Zambrano MD Med Qpskhl9311/11/2024 3:15 PM EDTOffice Visit [facility] [address] [place] [address] Mendez Ortiz, DO Obstructive sleep apnea (Primary Dx); Class 3 severe obesity with serious comorbidity and body mass index (BMI) of 40.0 to 44.9 in adult,unspecified obesity type ([facility]); Intolerance of continuous positive airway pressure (CPAP) gbprwufutej92/12/2025 Bamboo flowsheet [facility] [address] [place] [address] Mendez Ortiz, 11/11/20248210Ggujga15/04/2025Refill [facility] [address] [place] [address] Arcelia Duran, JO ANN Osteopenia, unspecified wjoytpla79/04/2025bstract [facility] [place] [facility] [address] [place] [address] Alissa Atkins MA 11/02/2024 1:20 PM EDTOffice Visit [facility] [address] [place] [address] Roel Garber, Osteopenia, unspecified location (Primary Dx); Other osteoporosis without current pathological fracture ; Other iron deficiency hlfgsw8411/02/2024amboo flowsheet [facility] [place] [facility] [address] [place] [address] Roel Garber DO 10/03/2024Telephone [facility] [address] [place] [address] Cleo Zambrano MD Med Diweod7309/29/2024 10:15 AM EDTOffice Visit [facility] [address] [place] [address] Mendez Ortiz, DO Obstructive sleep apnea (Primary Dx)09/29/2024amboo flowsheet [facility] [address] [place] [address] Mendez Ortiz, 09/29/2024Travelfrom Last 3 Months Immunizations ImmunizationAdministration DatesNext DueHep A / Hep B005/25/2023,12/22/2022, 06/23/2022Influenza Whole12/03/2012,12/29/2011,12/23/2010,12/18/2008Influenza, injectable, quadrivalent, preservative free12/23/2021,12/24/2020,12/19/2019, 12/19/2018,12/02/2017Influenza, live, nbddlcunpv20/20/2014Influenza, recombinant, quadrivalent, injectable, preservative free12/22/2022Influenza, seasonal, injectable, preservative free12/07/2023,10/10/2016Pneumococcal Conjugate PCV 131Pneumococcal Conjugate PCV Td (adult), truffdccvcf05/04/8693Oioo41/04/2022 Family History Medical HistoryRelationNameCommentsMelanomaMotherRelationNameStatusComments DaughterAliveFatherDeceasedMotherAliveSon 1AliveSon 2AliveSon 3AliveSon 4Alive Social History Tobacco UseTypesPacks/DayYears UsedDateSmoking Tobacco: NeverSmokeless Tobacco: Never Tobacco Cessation:Counseling Given: Not Answered Alcohol UseStandard Drinks/WeekCommentsNever0 (1 standard drink = 0.6 oz pure alcohol)CommentsNoSex and Gender InformationValueDate RecordedSex Assigned at BirthNot on fileLegal QabCpbrnl88/15/2023 8:01 PM EDTGender Identity Not on fileSexual OrientationNot on file Last Filed Vital Signs Vital SignReadingTime TakenCommentsBlood Tsynzxco831/7212/01/2024 10:57 AM EDT Gekmq31195/02/2025 10:57 AM EDTTemperature--Respiratory Yajm0151 10:57 AM EDTOxygen Orodyzdiow44%12/01/2024 10:57 AM EDTInhaled Oxygen Concentration-- Anycdf836 kg (227 lb)12/01/2024 10:57 AM KYJQccauw299 cm (5' 3 )12/01/2024 10:57 AM EDTBody Mass Index40.211 10:57 AM EDT Plan of Treatment DateTypeDepartmentCare Team (Latest Contact Info)Irgqoqnyhml02/05/2026 10:40 AM ESTOffice Visit [facility] [address] [place] [place] [address] Cleo Zambrano MD [address] [place] [address] 05/31/2025 1:00 PM EDTOffice Visit [facility] [address] [place] [address] Roel Garber DO [address] [place], [place] [address] 08/18/2025 2:00 PM EDTOffice Visit [facility] [address] [place] [address] Mendez Ortiz DO [address] [place] [address] Health MaintenanceDue DateLast UcizMotfllftVwssowmkl21/28/202603/28/2025, 03/16/2023, 11/07/2021, Additional history existsPap Smear, 05/19/2022ervical Cancer Qvxdjvsyw69/20/2028HPV/Suuqno6705/20/2027Influenza VvyhelyYgnllliak77/22/2025, 12/07/2023, 12/22/2022, Additional history exists Procedures Procedure NamePriorityDate/TimeAssociated DiagnosisCommentsPOCT GLYCOSYLATED HEMOGLOBIN (HGB A1C)Gjbeksh3212/01/2024 12:15 PM EDT Type 2 diabetes mellitus with hyperglycemia, without long-term current use of insulin (HCC) POCT RGJKLVLQratklg26/02/2025 12:12 PM EDT Type 2 diabetes mellitus with hyperglycemia, without long-term current use of insulin (HCC) MM TOMOSYNTHESIS SCREENING BI05/27/2024 4:48 PM EDT PAP HANMHAkzateo15/25/2024 12:00 AM EDTfrom Last 3 Months or Most Recently Relevant to Health Maintenance Results * POCT glycosylated hemoglobin (Hb A1C) docked device (12/01/2024 12:15 PM EDT) ComponentValueRef RangeTest MethodAnalysis TimePerformed AtPathologist SignatureHemoglobin A1C5.9Specimen (Source)Anatomical Location / Laterality Collection Method / VolumeCollection TimeReceived TimeBloodVenous blood specimen / Wzdmeul8512/01/2024 12:15 PM EDT Narrative Authorizing ProviderResult TypeResult StatusAhmaCedars Medical Center MDPOINT OF CARE TEST ENTER/EDIT ORDERABLESFinal Result * (ABNORMAL) POCT glucose manually resulted (12/01/2024 12:12 PM EDT)Component ValueRef RangeTest MethodAnalysis TimePerformed AtPathologist SignatureGlucose Blood, XGV206yf/dLSpecimen (Source)Anatomical Location / LateralityCollection Method / VolumeCollection TimeReceived TimeBloodCapillary blood specimen / Lrhbojp7012/01/2024 12:12 PM EDT Narrative Authorizing ProviderResult TypeResult StatusAhmad [facility] MDPOINT OF CARE TEST ENTER/EDIT ORDERABLESFinal Result * MM TOMOSYNTHESIS SCREENING BI (05/27/2024 4:48 PM EDT)Anatomical Region LateralityModalityOtherSpecimen (Source)Anatomical Location / Laterality Collection Method / VolumeCollection TimeReceived Time05/27/2024 4:48 PM EDT Narrative 05/27/2024 4:49 PM EDT [facility] ?[address] ? [place] [address] ? Mammography Report ? Signed ? Patient: PEE WHITEHEAD ?MR#: [id number] ?? : 1980 ?Acct:[id number] ?? Age/Sex: 43 / F ?ADM Date: 05/27/24 ?? Loc: MAMMO ? Attending Dr: Roel Garber D.O. ? Ordering Physician: Roel Garber D.O. ?Results: ? Date of Service: 05/27/24 ?Follow Up: ? Procedure(s): MM tomosynthesis screening BI ?? Accession Number(s): [id number] ? cc: Roel Garber D.O.; Loreto Mcneal SELF SEALING FUEL TANK REPAIRER ? Patient Name: ? PEE WHITEHEAD ? MR#: [id number] ? : 1980 ? Exam Date: 05/27/2024 ?? Ordering Doctor: DR Roel Garber . ? RADIOLOGY REPORT ? PROCEDURE: ? MM TOMOSYNTHESIS SCREENING BI ? COMPARISON: ? MM DIAGNOSTIC MAMMO UNILAT RT, 03/25/2023. ??MG MAMM SCREEN 3D ?? STELLA CAD, 03/16/2023. ??MM TOMOSYNTHESIS SCREENING BI, 11/07/2021. ??MM ?? TOMOSYNTHESIS DIAGNOSTIC BI, 11/06/2020. ? INDICATIONS: ? Screening ? Calculator Name ? NCI Breast Cancer Risk Assessment Tool ?? 5 Year Breast Cancer Risk ? Not Reported. ?? Lifetime Breast Cancer Risk ? Not Reported. ?? Personal Breast Cancer ?No ?? Personal Ovarian Cancer ? No ?? Treatments ? None ?? Family Cancers ? None ? LOCATION: ? [facility] ? BREAST COMPOSITION: ? There are scattered areas of fibroglandular density. ? FINDINGS: ? RIGHT BREAST: ??No significant suspicious finding. ? LEFT BREAST: ??No significant suspicious finding. ? DIAGNOSTIC CATEGORY 1--NEGATIVE. ? RECOMMENDATIONS: ? ROUTINE MAMMOGRAM AND CLINICAL EVALUATION IN 12 MONTHS. ? PLEASE NOTE: ??A NORMAL MAMMOGRAM DOES NOT EXCLUDE THE POSSIBILITY OF BREAST ?? CANCER. ??A CLINICALLY SUSPICIOUS PALPABLE LUMP SHOULD BE BIOPSIED. ? Dictated by: Mio Serra DO on 05/27/2024 at 16:38 ? Approved by: Mio Serra DO on 05/27/2024 at 16:48 ? Dictated By: ?Mio Serra D.O. ? Signed By: ?05/27/24 1649 ? DD/ 1648 ? TD/TT: ? Cutter Operator Asbestos Shingle: Procedure Note Radiology, Radiologist, - 05/27/2024 [place] [address] Mammography Report Signed Patient: PEE WHITEHEAD AMR#: [id number] : 1980Acct:[id number] Age/Sex: 43 / FADM Date: 05/27/24 Loc: MAMMO Attending Dr: Roel Garber D.O. Ordering Physician: Roel Garber D.O.Results: Date of Service: 05/27/24Follow Up: Procedure(s): MM tomosynthesis screening BI Accession Number(s): [id number] cc: Roel Garber D.O.; Loreto Mcneal NP Patient Name: PEE WHITEHEAD MR#: [id number] : 1980 Exam Date: 05/27/2024 Ordering Doctor: DR Roel Garber . RADIOLOGY REPORT PROCEDURE: MM TOMOSYNTHESIS SCREENING BI COMPARISON: MM DIAGNOSTIC MAMMO UNILAT RT, 03/25/2023. MG MAMM TXDKHF4J STELLA CAD, 03/16/2023. MM TOMOSYNTHESIS SCREENING BI, 11/07/2021. MM TOMOSYNTHESIS DIAGNOSTIC BI, 11/06/2020. INDICATIONS: Screening Calculator Name NCI Breast Cancer Risk Assessment Tool 5 Year Breast Cancer Risk Not Reported. Lifetime Breast Cancer Risk Not Reported. Personal Breast Cancer No Personal Ovarian Cancer No Treatments None Family Cancers None LOCATION: [facility] BREAST COMPOSITION: There are scattered [...] Serra D.O. Signed By:05/27/241648 DD/ 47 TD/TT: Cutter Operator Asbestos Shingle: Authorizing ProviderResult TypeResult StatusCorey Shirlene DOCLINISYNC IMAGINGFinal Result * Pap Smear (05/25/2023 12:00 AM EDT)Specimen (Source)Anatomical Location / LateralityCollection Method / VolumeCollection TimeReceived TimeSwabCervical swab / Unknown Narrative Authorizing ProviderResult TypeResult StatusCorey Shirlene DOLAB CYTOLOGY ORDERABLESFinal ResultPerforming OrganizationAddressCity/State/ZIP CodePhone Number EXTERNAL LAB from Last 3 Months or Most Recently Relevant to Health Maintenance Insurance Care Teams Team MemberRelationshipSpecialtyStart DateEnd Date Shawna Dudley DO [address] [place] [address] PCP - GeneralFamily Medicine04/14/22 Key Andrea NP [address] [place] [address] Referring PhysicianFamily Medicine08/13/23 Sasha Santos DO [address] [place] [address] Referring PhysicianNeurology05/10/24 Mendez Ortiz DO [address] [place] [address] Otolaryngology08/19/24
--- NOTE | 2024-12-28 08:56 | PC.NURSE ---
Nursing Note Cardiac Stress Test Reviewed: Medication, allergies and patient history reviewed. Stress Test: [x ] Patient tolerated stress test well. [ ] Patient unable to tolerate walking on treadmill. Switched to Lexiscan stress test. [x ] No chest pain noted per patient [ ] Chest pain that resolved prior to leaving stress lab. [x ] No dyspnea noted. [ ] Dyspnea that resolved prior to leaving stress lab. [ x] Patient left stress lab asymptomatic and hemodynamically stable. [ ] Patient taken to the Emergency Room due to non-resolving symptoms following stress test. [ ] Patient achieved target heart rate. [ ] Patient unable to achieve target heart rate. [ ] Aminophylline administered as reversal agent to Lexiscan (Regadenoson). [ ] Nitro administered. Nursing Comments:Pt had Lexiscan test done. No CP or SOB. Only complaint was that she had some discomfort over the area where her Inspire device was. She stated this is dislodged from where it is supposed to be and the Dr knows about this. Pt ambulated to cafeteria for breakfast prior to second set of images.
[2024-12-28] MEDS: REGADENOSON 0.4 MG/5 ML SYRINGE IV (08:58)
--- NOTE | 2024-12-28 17:27 | PM.STRESS ---
Stress Test Stress Test Allergies Allergy/AdvReac Type Severity Reaction Status Date / Time cephalexin (From Keflex) Allergy Intermediate Rash Verified 08/08/24 21:08 citalopram (From Celexa) Allergy Intermediate Rash Verified 08/08/24 21:08 metformin Allergy Intermediate Nausea Verified 08/08/24 21:08 Procedure: Lexiscan nuclear stress test General Information: Reason for Stress Test: [Chest pain] Cardiac History and Risk Factors: [Hypertension, hyperlipidemia, diabetes mellitus] Resting 12 - Lead Electrocardiogram: Resting twelve-lead EKG showed normal sinus rhythm, heart rate 72 bpm, normal EKG, resting blood pressure 102/75 mmHg. Lexiscan 0.4 mg was injected intravenously and the patient was monitored for a few minutes. Peak heart rate 104 bpm which represents 59% of age-predicted maximum heart rate and peak blood pressure 137/85 mmHg. Patient did not have any chest pain or shortness of breath. EKGs throughout the test did not show any significant T or ST changes or any significant arrhythmias. Stress Test: Protocol: [Lexiscan] Exercise Capacity: [Not applicable] Blood Pressure Response: [Normal] Rhythm: [No arrhythmias] ST - Response: [No ST changes] Patient Response: [No chest pain or shortness of breath] Interpretation: Negative Lexiscan EKG stress test for ischemia Nuclear myocardial perfusion stress images result is reported separately Louis Cedillo MD, FACC
== END 2024-12-28 06:46 | disposition home or self-care (01) ==
LOC: NM 06:45
PROVIDERS: PCP Nurse Practitioner Family
DX: R07.89 Other chest pain (principal)
CPT/HCPCS: 78452; 93017; A9500; J2785

== ENCOUNTER 2025-01-03 09:07 | Outpatient (RCR) | payer OTHER, SELFPAY | END 2025-01-29 23:59 | disposition home or self-care (01) | LOC: HEMC 09:07 | PROVIDERS: PCP Nurse Practitioner Family; Visit Provider Internal Medicine Hematology & Oncology | DX: D50.9 Iron deficiency anemia, unspecified (principal); Z85.41 Personal history of malignant neoplasm of cervix uteri; Z90.49 Acquired absence of other specified parts of digestive tract; K21.9 Gastro-esophageal reflux disease without esophagitis; M79.10 Myalgia, unspecified site; M25.50 Pain in unspecified joint; Z86.16 Personal history of COVID-19; Z80.9 Family history of malignant neoplasm, unspecified; G47.30 Sleep apnea, unspecified; M54.2 Cervicalgia; M85.80 Other specified disorders of bone density and structure, unspecified site | CPT/HCPCS: G0463 ==

== ENCOUNTER 2025-02-11 10:25 | Emergency (ER) | payer MEDICAID, SELFPAY ==
--- OUTSIDE RECORDS SUMMARY | 2023-11-17 04:15 | XMS_ITS ---
Author Organization [facility] Address [address] [place] [address] Care Team Providers Care Director Child Name Role Phone Chinyere Calix Primary Care Provider REASON FOR VISIT med f/u, *keep* SR Encounters Encounter Location Date Provider Diagnosis [facility] [address] [place] [address] 11/17/2023 Chinyere Calix Plan Of Treatment Next Appt Details Provider Name:Chinyere Calix, 03/27/2025 03:30:00 PM, [address], [place], [address], Progress Notes * PEE WHITEHEADDOB:[birth year] (44 yo F)Acc No.[id number]:11/17/2023 Behavioral Health Patient: Miryam PEE CROFT Provider:?Chinyere CalixDOB:1980???Age:43 Y ???Sex:FemaleDate:11/17/2023hone:[phone]: [address] [place], [place]-[address] Subjective: * Chief Complaints: * m ed f/u, *keep* SR * Electronic signature of FAWN Acosta FNP on 02/11/2025 at 11:17 AM EST Sign off status: Pending * Appointment Provider: Precious Calix Date: 0 11/17/2023 Generated for Printing/Faxing/eTransmitting on:?02/11/2025 11:17 AM EST
--- OUTSIDE RECORDS SUMMARY | 2024-02-15 09:45 | XMS_ITS ---
Author Organization [facility] vices Address [address] [place], [place] [id number] Care Team Providers Care Deputy Grand Jury Name Role Phone BaileychrisMarlonLoreto Primary Care Provider [phone] Monique Nuñez Unavailable [phone] Nitza Robles Unavailable [phone] REASON FOR VISIT HTN Social History Sex Assigned At : Social History Observation Description Sex Assigned At Female Encounters Encounter Location Date Provider Diagnosis Main [address] [place], [place] [id number] 02/15/2024 Nitza Robles Plan Of Treatment Next Appt Details Provider Name:Loreto ludwig, 02/27/2025 08:45:00 AM, [address] [place] [address], [id number], Provider Name:Fara Sampson , 03/16/2025 10:45:00 AM, [address] [place] [address], [id number], Progress Notes * Karma SR ADOB: (44 yo F)Acc No.[id number]:02/15/2024 Medical Note Patient: Miryam vásquez Karma Banegas :?Nitza RoblesDOB:1980???Age:43 Y???Sex: FemaleDate:4Phone:[phone]:[address] [facility] [place], [place]Ctk:Loreto Mcnela Subjective: * Chief Complaints: * H TN Billing Information: * Procedure Codes: * Electronic signature of AILYN Siddiqi on 02/11/2025 at 11:17 AM ESTSign off status: Pending * Provider: Kerline Robles Date: 1 04/17/2023 Generated for Printing/Faxing/eTransmitting on:?02/11/2025 11:17 AM EST
--- OUTSIDE RECORDS SUMMARY | 2024-02-22 08:30 | XMS_ITS ---
Author Organization [facility] vices Address [address] [place], [place] [address] Care Team Providers Care Human Performance Technologist Name Role Phone Loreto Mcneal Primary Care Provider Monique Nuñez Unavailable [phone] Key Andrea Unavailable [phone] REASON FOR VISIT Wellness Social History Sex Assigned At : Social History Observation Description Sex Assigned At Female Encounters Encounter Location Date Provider Diagnosis [place] [address] [place] [address] 02/22/2024 Key Andrea Plan Of Treatment Next Appt Details Provider Name:Loreto ludwig, 02/27/2025 08:45:00 AM, [address] [place] [address], [phone], Provider Name:Fara Sampson , 03/16/2025 10:45:00 AM, [address] [place] [address], [phone], Progress Notes * Karma SR ADOB: (44 yo F)Acc No.[id number]:02/22/2024 Medical Note Patient: Miryam Karma Domínguez :Mary Ann AndreaDOB:1980???Age:43 Y???Sex:Female Date:4Phone:[phone]:[address] [place], [place]-[address] Pcp:Loreto Mcneal Subjective: * Chief Complaints: * W ellness * Electronic signature of EMILIA Lou on 02/11/2025 at 11:16 AM ESTSign off status: Pending * Provider: Nicholas Andrea Date: 04/24/2023 Generated for Printing/Faxing/eTransmitting on:?02/11/2025 11:16 AM EST
--- OUTSIDE RECORDS SUMMARY | 2024-03-14 08:30 | XMS_ITS ---
Author Organization [facility] vices Address [address] [place], [place] [address] Care Team Providers Care Welder Fitter Apprentice Name Role Phone Fredis Loreto Primary Care Provider Monique Nuñez Unavailable [phone] Sol Munoz Unavailable [phone] REASON FOR VISIT Elevated HR Social History Sex Assigned At : Social History Observation Description Sex Assigned At Female Encounters Encounter Location Date Provider Diagnosis Main [address] [place] [id number] 03/14/2024 Sol Munoz Plan Of Treatment Next Appt Details Provider Name:Loreto ludwig, 02/27/2025 08:45:00 AM, [address] [place] [address], [id number], Provider Name:Fara Sampson , 03/16/2025 10:45:00 AM, [address] [place] [address], [id number], Progress Notes * Karma SR ADOB: (44 yo F)Acc No.[id number]:03/14/2024 Medical Note Patient: Miryam Karma Domínguez :?Sol Munoz, MDDOB:1980???Age:43 Y???Sex: FemaleDate:03/14/2024Phone:[phone]:[address] [place], [place]-[address]Pcp:Loreto Mcneal Subjective: * Chief Complaints: * E levated HR * Electronic signature of Sol Munoz MD on 02/11/2025 at 11:18 AM ESTSign off status: Pending * Provider: Lázaro Munoz MD Date: 0 03/14/2024 Generated for Printing/Faxing/eTransmitting on:?02/11/2025 11:18 AM EST
--- OUTSIDE RECORDS SUMMARY | 2024-03-29 04:00 | XMS_ITS ---
Author Organization The [facility] in [place] Address [address] [place] [address] Care Team Providers Care Machine Printer Hose Name Role Phone Villa CHERRY, Rory Primary Care Provider Unavailab Carmen Santamaria Unavailable [phone] REASON FOR VISIT MD TELEHEALTH Encounters Encounter Location Date Provider Diagnosis The [facility] Oncology [address] [place] [address] 03/29/2024 Carmen Sultana Plan Of Treatment No Information Progress Notes * Karma WHITEHEADDOB:[birth year] (44 yo F)Acc No.[id number]:03/29/2024 UNLOCKED PROGRESS NOTE Progress Notes Patient: Karma MUNOZ :?Carmen Fisher M.D.:1980???Age:43 Y ???Sex:FemaleDate:03/29/2024Phone:[phone]:[address] [place], [place]Pcp:Rory Driver NP Subjective: * Chief Complaints: * 1 . TELEHEALTH. * Medical History: Objective: * Vitals: Assessment: Plan: * Treatment: * * Electronic signature of Carmen Sultana MD, [id number] on 02/11/2025 at 11:16 AM ESTSign off status: PendingVisit Status:?CANC (Cancelled) * Provider: Kerline Fisher M.D. Date: 0 03/29/2024 Generated for Printing/Faxing/eTransmitting on:?02/11/2025 11:16 AM EST
--- OUTSIDE RECORDS SUMMARY | 2024-03-29 09:30 | XMS_ITS ---
Author Organization The [facility] in [place] Address [address] [place] [address] Care Team Providers Care Drug Safety Scientist Name Role Phone Villa CHERRY, Rory Primary Care Provider Unavailab Carmen Santamaria Unavailable [phone] REASON FOR VISIT MD TELEHEALTH Encounters Encounter Location Date Provider Diagnosis [facility] Oncology [address] [place] [address] 03/29/2024 Carmen Sultana Plan Of Treatment No Information Progress Notes * Karma WHITEHEADDOB:[birth year] (44 yo F)Acc No.[id number]:03/29/2024 UNLOCKED PROGRESS NOTE Progress Notes Patient: Karma MUNOZ :?Carmen Fisher M.D.:1980???Age:43 Y ???Sex:FemaleDate:03/29/2024Phone:[phone]:[address] [place], [place]Pcp:Rory Driver NP Subjective: * Chief Complaints: * 1 . TELEHEALTH. * Medical History: Objective: * Vitals: Assessment: Plan: * Treatment: * * Electronic signature of Carmen Sultana MD, [id number] on 02/11/2025 at 11:16 AM ESTSign off status: PendingVisit Status:?PEN (Pending) * Provider: Kerline Fisher M.D. Date: 0 03/29/2024 Generated for Printing/Faxing/eTransmitting on:?02/11/2025 11:16 AM EST
--- OUTSIDE RECORDS SUMMARY | 2024-06-14 06:30 | XMS_ITS ---
Author Organization The [facility] in [place] Address [address] [place] [address] Care Team Providers Care Steam And Gas Turbines Assembler Name Role Phone Villa CROWN BLOCKER, Rory Primary Care Provider Unavailab Carmen Santamaria Unavailable [phone] REASON FOR VISIT MD Encounters Encounter Location Date Provider Diagnosis [facility] [address] [place] [address] 06/14/2024 Carmen Sultana Plan Of Treatment No Information Progress Notes * Karma WHITEHEADDOB:[birth year] (44 yo F)Acc No.[id number]:06/14/2024 UNLOCKED PROGRESS NOTE Progress Notes Patient: Karma MUNOZ :?Carmen Fisher M.D.:1980???Age:43 Y ???Sex:FemaleDate:06/14/2024Phone:[phone]:[address] [place], [place]-[address]Pcp:Rory Driver NP Subjective: * Chief Complaints: * 1 . MD. * Medical History: Objective: * Vitals: Assessment: Plan: * Treatment: * * Electronic signature of Carmen Sultana MD, [id number] on 02/11/2025 at 11:17 AM ESTSign off status: PendingVisit Status:?ANSPH (Voice) * Provider: Kerline Fisher M.D. Date: 0 06/14/2024 Generated for Printing/Faxing/eTransmitting on:?02/11/2025 11:17 AM EST
--- OUTSIDE RECORDS SUMMARY | 2024-06-15 03:30 | XMS_ITS ---
Author Organization [facility] Address [address] [place] [address] Care Team Providers Care State Historical Society Director Name Role Phone Calix Chinyere Primary Care Provider REASON FOR VISIT 3 month f/u Encounters Encounter Location Date Provider Diagnosis [facility] [address] [place] [address] 06/15/2024 Chinyere Calix Plan Of Treatment Next Appt Details Provider Name:Chinyere Calix, 03/27/2025 03:30:00 PM, [address], [place], [address], Progress Notes * PEE WHITEHEADDOB:[birth year] (44 yo F)Acc No.[id number]:06/15/2024 Behavioral Health Patient: Miryam PEE CROFT Provider:Edgard CalixDOB:1980???Age:43 Y ???Sex:FemaleDate:06/15/2024Phone:[phone]: [address] [place], [place] Subjective: * Chief Complaints: * 3 month f/u * Electronic signature of FAWN Acosta FNP on 02/11/2025 at 11:17 AM EST Sign off status: Pending * Appointment Provider: Precious Calix Date: 0 06/15/2024 Generated for Printing/Faxing/eTransmitting on:?02/11/2025 11:17 AM EST
--- OUTSIDE RECORDS SUMMARY | 2024-08-25 04:30 | XMS_ITS ---
Author Organization [facility] vices Address [address] [place] [phone] Care Team Providers Care Interventional Cardiologist Name Role Phone Fredis Loreto Primary Care Provider Monique Nuñez Unavailable [phone] Deepika Banks Unavailable [phone] REASON FOR VISIT Recall (A) 43 Social History Sex Assigned At : Social History Observation Description Sex Assigned At Female Encounters Encounter Location Date Provider Diagnosis [facility] [address] [place] [phone] 08/25/2024 Deepika Banks Plan Of Treatment Next Appt Details Provider Name:Loreto ludwig, 02/27/2025 08:45:00 AM, [address] [place] [address], [phone], Provider Name:Fara Sampson , 03/16/2025 10:45:00 AM, [address] [place] [address], [phone], Progress Notes * Karma SR ADOB: (44 yo F)Acc No.[id number]:08/25/2024 Patient:?Karma Sr :?Deepika Banks DDSDOB:1980???Age:43 Y ???Sex:FemaleDate:08/25/2024Phone:[phone]:[address] [place], [place]-[address]Pcp:Loreto Mcneal Subjective: * Chief Complaints: * R ecall (A) 43 Billing Information: * Procedure Codes: * Electronic signature of Deepika Banks DDS on 02/11/2025 at 11:18 AM ESTSign off status: Pending * Provider: Ana Banks DDS Date: 0 08/25/2024 Generated for Printing/Faxing/eTransmitting on:?02/11/2025 11:18 AM EST
--- OUTSIDE RECORDS SUMMARY | 2024-09-13 06:00 | XMS_ITS ---
Author Organization The [facility] in [place] Address [address] [place] [address] Care Team Providers Care Tire Mechanic Name Role Phone Villa MINE CAPTAIN, Rory Primary Care Provider Unavailab Carmen Santamaria Unavailable [phone] REASON FOR VISIT MD Encounters Encounter Location Date Provider Diagnosis The [facility] [address] [place] [address] 09/13/2024 Carmen Sultana Plan Of Treatment No Information Progress Notes * Karma WHITEHEADDOB:[birth year] (44 yo F)Acc No.[id number]:09/13/2024 UNLOCKED PROGRESS NOTE Progress Notes Patient: Karma MUNOZ :?Carmen Fisher M.D.:1980???Age:43 Y ???Sex:FemaleDate:09/13/2024Phone:[phone]:[address] [place], [place]-[address]Pcp:Rory Driver NP Subjective: * Chief Complaints: * 1 . MD. * Medical History: Objective: * Vitals: Assessment: Plan: * Treatment: * * Electronic signature of Carmen Sultana MD, [id number] on 02/11/2025 at 11:19 AM ESTSign off status: PendingVisit Status:?CANC (Cancelled) * Provider: Kerline Fisher M.D. Date: 0 09/13/2024 Generated for Printing/Faxing/eTransmitting on:?02/11/2025 11:19 AM EST
--- OUTSIDE RECORDS SUMMARY | 2024-09-13 06:30 | XMS_ITS ---
Author Organization The [facility] in [place] Address [address] [place] [address] Care Team Providers Care Sizing Machine And Drier Operator Name Role Phone Villa PALLET STONE POSITIONER, Rory Primary Care Provider Unavailab Carmen Santamaria Unavailable [phone] REASON FOR VISIT MD Encounters Encounter Location Date Provider Diagnosis The [facility] [address] [place] [address] 09/13/2024 Carmen Sultana Plan Of Treatment No Information Progress Notes * Karma WHITEHEADDOB:[birth year] (44 yo F)Acc No.[id number]:09/13/2024 UNLOCKED PROGRESS NOTE Progress Notes Patient: Karma MUNOZ :?Carmen Fisher M.D.:1980???Age:43 Y ???Sex:FemaleDate:09/13/2024Phone:[phone]:[address] [place], [place]-[address]Pcp:Rory Driver NP Subjective: * Chief Complaints: * 1 . MD. * Medical History: Objective: * Vitals: Assessment: Plan: * Treatment: * * Electronic signature of Carmen Sultana MD, [id number] on 02/11/2025 at 11:19 AM ESTSign off status: PendingVisit Status:?CANC (Cancelled) * Provider: Kerline Fisher M.D. Date: 0 09/13/2024 Generated for Printing/Faxing/eTransmitting on:?02/11/2025 11:19 AM EST
--- OUTSIDE RECORDS SUMMARY | 2024-09-19 05:15 | XMS_ITS ---
Author Organization [facility] Servic es Address [address] [place] [address] Care Team Providers Care Fuel Handler Name Role Phone Yogi Chinyere Primary Care Provider [phone] Encounters Encounter Location Date Provider Diagnosis [facility] [address] [place] [address] 09/19/2024 Chinyere Calix Plan Of Treatment Next Appt Details Provider Name:Chinyere Churchill Calix, 03/27/2025 03:30:00 PM, [address], [place], [address], Progress Notes * PEE WHITEHEADDOB:[birth year] (44 yo F)Acc No.[id number]:09/19/2024 Behavioral Health Patient: Miryam PEE CROFT Provider:?Chinyere CalixDOB:1980???Age:43 Y ???Sex:FemaleDate:09/19/2024Phone:[phone]: [address] [place], [place] * Electronic signature of FAWN Acosta FNP on 02/11/2025 at 11:18 AM EST Sign off status: Pending * Appointment Provider: Precious Calix Date: 0 09/19/2024 Generated for Printing/Faxing/eTransmitting on:?02/11/2025 11:18 AM EST
--- OUTSIDE RECORDS SUMMARY | 2024-09-20 06:30 | XMS_ITS ---
Author Organization [facility] [place] Address [address] [place] [address] Care Team Providers Care Electrician Technician Name Role Phone Villa MOLD MAKER HELPER, Rory Primary Care Provider Unavailab Carmen Santamaria Unavailable [phone] REASON FOR VISIT MD Encounters Encounter Location Date Provider Diagnosis [facility] Oncology [address] [place] [address] 09/20/2024 Carmen Sultana Plan Of Treatment No Information Progress Notes * Karma WHITEHEADDOB:[birth year] (44 yo F)Acc No.[id number]:09/20/2024 UNLOCKED PROGRESS NOTE Progress Notes Patient: Karma MUNOZ :?Carmen Fisher M.D.:1980???Age:43 Y ???Sex:FemaleDate:09/20/2024Phone:[phone]:[address] [place], [place]Pcp:Rory Driver NP Subjective: * Chief Complaints: * 1 . MD. * Medical History: Objective: * Vitals: Assessment: Plan: * Treatment: * * Electronic signature of Carmen Sultana MD, [id number] on 02/11/2025 at 11:15 AM ESTSign off status: PendingVisit Status:?CANC (Cancelled) * Provider: Kerline Fisher M.D. Date: 0 09/20/2024 Generated for Printing/Faxing/eTransmitting on:?02/11/2025 11:15 AM EST
--- OUTSIDE RECORDS SUMMARY | 2024-09-27 09:45 | XMS_ITS ---
Author Organization [facility] [place] Address [address] [place] [address] Care Team Providers Care Player Development Executive Name Role Phone Villa SCIENCE TEACHER, Rory Primary Care Provider Unavailab Carmen Santamaria Unavailable [phone] REASON FOR VISIT MD Encounters Encounter Location Date Provider Diagnosis [facility] Oncology [address] [place] [address] 09/27/2024 Carmen Sultana Plan Of Treatment No Information Progress Notes * Karma WHITEHEADDOB:[birth year] (44 yo F)Acc No.[id number]:09/27/2024 UNLOCKED PROGRESS NOTE Progress Notes Patient: Karma MUNOZ :?Carmen Fisher M.D.:1980???Age:44 Y ???Sex:FemaleDate:09/27/2024Phone:[phone]:[address] [place], [place]-[address]Pcp:Rory Driver NP Subjective: * Chief Complaints: * 1 . MD. * Medical History: Objective: * Vitals: Assessment: Plan: * Treatment: * * Electronic signature of Carmen Sultana MD, [id number] on 02/11/2025 at 11:15 AM ESTSign off status: PendingVisit Status:?VOICEMSG (Voice) * Provider: Kerline Fisher M.D. Date: 0 09/27/2024 Generated for Printing/Faxing/eTransmitting on:?02/11/2025 11:15 AM EST
--- OUTSIDE RECORDS SUMMARY | 2024-12-27 08:15 | XMS_ITS ---
Author Organization [facility] [place] Address [address] [place] [address] Care Team Providers Care Package Clerk Name Role Phone Villa MARKETING FINANCIAL ANALYST, Rory Primary Care Provider Unavailab LISA Prater Unavailable [phone] REASON FOR VISIT MD Encounters Encounter Location Date Provider Diagnosis [facility] On[facility] [address] [place] [address] 12/27/2024 LISA PATEL Plan Of Treatment No Information Progress Notes * Karma WHITEHEADDOB:[birth year] (44 yo F)Acc No.[id number]:12/27/2024 UNLOCKED PROGRESS NOTE Progress Notes Patient: Karma MUNOZ :?LISA PATEL M.D.:1980???Age:44 Y ???Sex:FemaleDate:12/27/2024Phone:[phone]:[address] [place] [id number]:Rory Driver NP Subjective: * Chief Complaints: * 1 . MD. * Medical History: Objective: * Vitals: Assessment: Plan: * Treatment: * * Electronic signature of LISA PATEL MD on 02/11/2025 at 11:18 AM ESTSign off status: PendingVisit Status:?CANC (Cancelled) * Provider: Kerline PATEL M.D. Date: Generated for Printing/Faxing/eTransmitting on:?02/11/2025 11:18 AM EST
--- OUTSIDE RECORDS SUMMARY | 2025-01-02 11:30 | XMS_ITS ---
Author Organization [facility] Address [address] [place] [address] Care Team Providers Care Cable Installer Repairer Helper Name Role Phone Yogi Chinyere Primary Care Provider [phone] REASON FOR VISIT f/u; seen 12/27/2024 Encounters Encounter Location Date Provider Diagnosis [facility] [address] [place] [address] 01/02/2025 Chinyere Calix Plan Of Treatment Next Appt Details Provider Name:Chinyere Churchill Calix, 03/27/2025 03:30:00 PM, [address], [place], [address], Progress Notes * PEE WHITEHEADDOB:[birth year] (44 yo F)Acc No.[id number]:01/02/2025 Behavioral Health Patient: Miryam PEE CROFT Provider:?Chinyere CalixDOB:1980???Age:44 Y ???Sex:FemaleDate:01/02/2025Phone:[phone]: [address] [place], [place]-[address] Subjective: * Chief Complaints: * F /u; seen 12/27/2024 * Electronic signature of FAWN Acosta FNP on 02/11/2025 at 11:19 AM EST Sign off status: Pending * Appointment Provider: Precious Calix Date: 03/04/2024 Generated for Printing/Faxing/eTransmitting on:?02/11/2025 11:19 AM EST
--- OUTSIDE RECORDS SUMMARY | 2025-01-03 04:00 | XMS_ITS ---
Author Organization [facility] [place] Address [address] [place] [address] Care Team Providers Care Order Puller Name Role Phone Villa STATISTICAL METHODS PROFESSOR, Rory Primary Care Provider Unavailab Carmen Santamaria Unavailable [phone] REASON FOR VISIT MD Encounters Encounter Location Date Provider Diagnosis [facility] [address] [place] [address] 01/03/2025 Carmen Sultana Plan Of Treatment No Information Progress Notes * Karma WHITEHEADDOB:[birth year] (44 yo F)Acc No.[id number]:01/03/2025 UNLOCKED PROGRESS NOTE Progress Notes Patient: Karma MUNOZ :?Carmen Fisher M.D.:1980???Age:44 Y ???Sex:FemaleDate:01/03/2025Phone:[phone]:[address] [place], [place]-[address]Pcp:Rory Driver NP Subjective: * Chief Complaints: * 1 . MD. * Medical History: Objective: * Vitals: Assessment: Plan: * Treatment: * * Electronic signature of Carmen Sultana MD, [phone] on 02/11/2025 at 11:18 AM ESTSign off status: PendingVisit Status:?PEN (Pending) * Provider: Kerline Fisher M.D. Date: 03/05/2024 Generated for Printing/Faxing/eTransmitting on:?02/11/2025 11:18 AM EST
--- OUTSIDE RECORDS SUMMARY | 2025-02-02 13:40 | XMS_ITS | Encounter Summary ---
Author Organization [facility] Address [address] [place] [address] Care Team Providers Care Mandarin Tutor Name Role Phone Zully Key WEIGHT CALLER Unavailable Shawna Dudley DO Primary Care Provider Sasha Santos DO Unavailable [phone] Mendez Ortiz DO Unavailable Reason for Visit * ReasonCommentsSuspicious Skin Lesion Encounter Details DateTypeDepartmentCare Team (Latest Contact Info)Orgianuvsbo36/04/2025 1:40 PM ESTOffice Visit [facility] [address] [facility] [address] [place] [phone] Archana Naylor APRN-CNP [address] [facility] [address] [place] [address] Holden angioma (Primary Dx); Neoplasm of skin; Inflamed seborrheic keratosis Social History Tobacco UseTypesPacks/DayYears UsedDateSmoking Tobacco: NeverSmokeless Tobacco: NeverAlcohol UseStandard Drinks/WeekCommentsNever0 (1 standard drink = 0.6 oz pure alcohol)CommentsNoSex and Gender InformationValueDate RecordedSex Assigned at BirthNot on fileLegal NjsXbqglm39/15/2023 8:01 PM EDTGender Identity Not on fileSexual OrientationNot on filedocumented as of this encounter Progress Notes * ANJUM Greenfield - 02/02/2025 1:40 PM EST Images from the original note were not included. Lesions: Location: lower back, right upper arm Duration: months Quality: itchy Modifying factors: aggravated by picking Associated symptoms: rough, scaly Treatments: none Established patient All pertinent medical history, medications, and allergies were reviewed. General Exam: alert, oriented to person, place, and time, normal affect, well appearing Accompanied by son A focused exam completed based on patient reported problems, see below: Skin Exam 1. NEOPLASM OF SKIN Right Upper Arm - Anterior 1.0 x 1.0 cm Erythematous macule. See photo Favor scab/prurigo nodularis. Observation at this time. Follow up in 2 months to re check. May cancel if it goes away 2. INFLAMED SEBORRHEIC KERATOSIS (3) Left Lower Back (3) Inflamed seborrheic keratoses: pink and brown stuck on verrucous scaly papule with surrounding erythema and bloody crust. The patient was informed that symptomatic seborrheic keratoses are benign growths that become inflamed, itchy, tender, traumatized, caught on clothing, or bleed. Symptomatic lesions can be treated with cryotherapy or curretage. Thicker lesions treated with cryotherapy may require more than one treatment. The patient was instructed to notify the office if abnormal redness or tenderness develops atthe treatment site. Cryotherapy today, see procedure note. Diagnosis: Inflamed seborrheic keratosis Indication: Inflamed Consent: Verbal consent was obtained and risks were discussed, including, but not limited to risks of scarring, darker or recreation director pigmentary changes, recurrence, incomplete removal and infection. Method: Liquid nitrogen was used to treat the lesion(s) with two 5-10 second freeze-thaw cycles Number of lesions treated: 3 Post-procedure instructions: Instructions were given orally and in writing. The office will be contacted if the lesion fails to resolve despite treatment, or if a side effect develops such as abnormal crusting, scabbing, redness or tenderness - Cryotherapy, skin lesion - Left Lower Back (3) 3. OHLDEN ANGIOMA (2) Right Lower Back (2) Scattered holden-red papule(s). The patient was informed that angiomas are benign growths on the the skin. No treatment is necessary. Next Visit: 2 months documented in this encounter Plan of Treatment DateTypeDepartmentCare Team (Latest Contact Info)Kyhelkkwyho53/05/2026 9:15 AM ESTOffice Visit [facility] [address] [place] [phone] Archana Naylor APRN-CNP [address] [place] [address] 04/06/2025 10:40 AM ESTOffice Visit [facility] [address] [place] [phone] Cleo Zambrano MD [address] [place] [address] 05/31/2025 1:00 PM EDTOffice Visit [facility] [address] [place] [phone] Roel Garber DO [address] [address] 08/18/2025 2:00 PM EDTOffice Visit [facility] [address] [place] [phone] Mendez Ortiz DO [address] [place] [address] documented as of this encounter Procedures Procedure NamePriorityDate/TimeAssociated DiagnosisCommentsCRYOTHERAPY SKIN EFOEENHtfgkvw84/04/2025 2:00 PM EST Inflamed seborrheic keratosis documented in this encounter Results * Cryotherapy, skin lesion (02/02/2025 2:00 PM EST) Narrative Authorizing ProviderResult TypeResult StatusNatalie Kerline VALERODERM PROCEDURE ORDERABLESFinal Result documented in this encounter Visit Diagnoses Diagnosis Holden angioma- Primary Neoplasm of skin Inflamed seborrheic keratosis documented in this encounter Care Teams Team MemberRelationshipSpecialtyStart DateEnd Date Shawna Dudley DO [address] [place] [address] PCP - GeneralFamily Medicine04/14/22 Key Andrea NP [address] [place] [address] Referring PhysicianFamily Medicine08/13/23 Sasha Santos DO [address] [place] [address] Referring PhysicianNeurology05/10/24 Mendez Ortiz DO [address] [place] [address] Otolaryngology08/19/24documented as of this encounter
[2025-02-11 10:30] VITALS: BP 130/86; PULSE 75; TEMP 36.6; O2SAT 98; BMI 39.0
--- NOTE | 2025-02-11 10:43 | ED.GENADUL1 ---
HPI HPI - General Adult General Chief complaint: Skin/Abscess/Foreign Body Stated complaint: RASH AND BRUISES MENENDEZ THROUGHOUT BODY Time Seen by Provider: 02/11/25 10:32 Source: patient Mode of arrival: walk-in History of Present Illness HPI narrative: 44-year-old female presented for rash. It is mostly below her breast but also in her groin. She has been on Diflucan for a few days and has been using nystatin powder. No drainage. Related Data Home Medications ?Medication ?Instructions ?Recorded ?Confirmed Bifidobacterium infantis 4 mg 4 mg PO DAILY 10/24/23 07/22/24 capsule (Align (B.infantis)) ascorbic acid (vitamin C) 500 mg 500 mg PO BID 10/24/23 07/22/24 tablet (Vitamin C) duloxetine 60 mg capsule,delayed 60 mg PO DAILY 10/24/23 07/22/24 release empagliflozin 25 mg tablet 25 mg PO DAILY 10/24/23 07/22/24 (Jardiance) fluoxetine 60 mg tablet 60 mg PO DAILY 10/24/23 07/22/24 lamotrigine 200 mg tablet 200 mg PO DAILY 10/24/23 07/22/24 lurasidone 120 mg tablet 120 mg PO DAILY 10/24/23 07/22/24 multivitamin with folic acid 400 1 tab PO DAILY 10/24/23 07/22/24 mcg tablet (Daily-Karely (with folic acid)) pioglitazone 30 mg tablet 30 mg PO DAILY 10/24/23 07/22/24 rosuvastatin 10 mg tablet 10 mg PO DAILY 10/24/23 07/22/24 trazodone 50 mg tablet 50 mg PO DAILY 10/24/23 07/22/24 vitamin B complex 1 tab PO Q24H 10/24/23 07/22/24 albuterol sulfate 0.63 mg/3 mL 0.63 mg inhalation TID PRN 11/16/23 07/22/24 solution for nebulization bronchospasm albuterol sulfate 90 mcg/actuation 2 inh inhalation QID PRN shortness 11/16/23 07/22/24 aerosol inhaler (Proventil HFA) of breath or wheezing biotin injectioin .every other week 11/16/23 fluticasone propionate 50 1 spray intranasal DAILY PRN 11/16/23 07/22/24 mcg/actuation nasal allergy symptoms spray,suspension (24 Hour Allergy Relief) invizia 11/16/23 docusate sodium 100 mg capsule 300 mg PO DAILY 01/11/24 07/22/24 linaclotide 290 mcg capsule 290 mcg PO DAILY 01/11/24 07/22/24 (Linzess) cholecalciferol (vitamin D3) 125 125 mcg PO DAILY 03/31/24 07/22/24 mcg (5,000 unit) tablet (Vitamin D3) fexofenadine 180 mg tablet 180 mg PO DAILY 03/31/24 07/22/24 lisdexamfetamine 70 mg capsule 70 mg PO QAM 03/31/24 07/22/24 (Vyvanse) metoprolol succinate 25 mg 25 mg PO DAILY 03/31/24 07/22/24 tablet,extended release 24 hr gabapentin 300 mg capsule See Rx Instructions .Route .COMPLEX 07/22/24 07/22/24 Previous Rx's ?Medication ?Instructions ?Recorded diclofenac sodium 75 mg 75 mg PO BID PRN pain #60 tabs 11/16/23 tablet,delayed release cyclobenzaprine 10 mg tablet See Rx Instructions .Route 03/10/24 .COMPLEX PRN muscle spasm #90 tabs ondansetron 4 mg disintegrating 4 mg PO Q6H PRN nausea and 03/31/24 tablet vomiting #12 tabs cyclobenzaprine 10 mg tablet 10 mg PO TID PRN muscle spasm #90 11/10/24 tabs diclofenac sodium 75 mg 75 mg PO BID PRN pain #60 tabs 11/10/24 tablet,delayed release cyclobenzaprine 10 mg tablet 10 mg PO QID PRN muscle spasm #120 12/01/24 tabs gabapentin 300 mg capsule 600 mg (2 x 300 mg) PO TID #180 12/21/24 caps clotrimazole-betamethasone 1 1 applic topical BID #90 grams 02/11/25 %-0.05 % topical cream fluconazole 100 mg tablet 100 mg PO DAILY 7 days #7 tabs 02/11/25 Allergies Allergy/AdvReac Type Severity Reaction Status Date / Time liraglutide (From Victoza) Allergy Severe Rash Verified 02/11/25 10:39 cephalexin (From Keflex) Allergy Intermediate Rash Verified 08/08/24 21:08 citalopram (From Celexa) Allergy Intermediate Rash Verified 08/08/24 21:08 metformin Allergy Intermediate Nausea Verified 08/08/24 21:08 tirzepatide (From Mounjaro) Allergy Intermediate Rash Verified 02/11/25 10:39 dulaglutide (From Trulicity) AdvReac Intermediate Vomiting Verified 02/11/25 10:39 Opioid HPI Opioid Management Most Recent Opioid Data: Last Pain Scale 6 08/08/24, 21:08 Ur Phencyclidine Scrn, (NEGATIVE) Negative 10/24/23, 05:14 Review of Systems ROS Narrative A ten point review of systems is negative except as noted above. [facility] Medical History Heartburn ?R12 - Heartburn (ICD-10) Acid reflux ?K21.9 - Gastro-esophageal reflux disease without esophagitis (ICD-10) ASD (atrial septal defect) ?Q21.10 - Atrial septal defect, unspecified (ICD-10) ADHD ?F90.9 - Attention-deficit hyperactivity disorder, unspecified type (ICD-10) Bipolar affect, depressed ?F31.30 - Bipolar disorder, current episode depressed, mild or moderate severity, unspecified (ICD-10) Anemia ?D64.9 - Anemia, unspecified (ICD-10) Low back pain ?M54.50 - Low back pain, unspecified (ICD-10) Osteoarthritis ?M19.90 - Unspecified osteoarthritis, unspecified site (ICD-10) Carpal tunnel syndrome ?G56.00 - Carpal tunnel syndrome, unspecified upper limb (ICD-10) Obesity ?E66.9 - Obesity, unspecified (ICD-10) Diabetes ?E11.9 - Type 2 diabetes mellitus without complications (ICD-10) Sleep apnea ?G47.30 - Sleep apnea, unspecified (ICD-10) Asthma ?J45.909 - Unspecified asthma, uncomplicated (ICD-10) High cholesterol ?E78.00 - Pure hypercholesterolemia, unspecified (ICD-10) Surgical History History of nasal surgery ?Z98.890 - Other specified postprocedural states (ICD-10) History of ankle surgery ?Z98.890 - Other specified postprocedural states (ICD-10) History of tonsillectomy and adenoidectomy ?Z90.89 - Acquired absence of other organs (ICD-10) H/O shoulder surgery ?Z98.890 - Other specified postprocedural states (ICD-10) History of cholecystectomy ?Z90.49 - Acquired absence of other specified parts of digestive tract (ICD-10) Social History Little interest or pleasure in doing things: not at all Feeling down, depressed, or hopeless: not at all Exam Narrative Exam Narrative: Nurses note and vital signs reviewed General:The patient appears well and in no apparent distress.Patient is resting comfortably on cart. Skin:Warm, dry, no pallor noted.There confluent erythema underneath each breast and in her groin area as well. No drainage. Head:Normocephalic, atraumatic Eye: Normal conjunctiva, no drainage Ears, Nose, Mouth, and Throat: oral mucosa is moist. Nares patent. Cardiovascular:Regular Rate and Rhythm Respiratory:Patient is in no distress, no accessory muscle use Back:non-tender GI: Soft and nontender Musculoskeletal: No joint swelling Neurological:A&O, normal speech Psychiatric:Cooperative Constitutional Vital Signs, click to edit/add: Last Vital Signs Temp 98 F 02/11/25 10:30 Pulse 75 02/11/25 10:30 Resp 20 02/11/25 10:30 BP 130/86 02/11/25 10:30 Pulse Ox 98 02/11/25 10:30 O2 Del Method Room Air 02/11/25 10:30 Course Vital Signs Vital signs: Vital Signs Temperature 98 F 02/11/25 10:30 Pulse Rate 75 02/11/25 10:30 Respiratory Rate 20 02/11/25 10:30 Blood Pressure 130/86 02/11/25 10:30 Pulse Oximetry 98 02/11/25 10:30 Oxygen Delivery Method Room Air 02/11/25 10:30 Temperature 98 F 02/11/25 10:30 Pulse Rate 75 02/11/25 10:30 Respiratory Rate 20 02/11/25 10:30 Blood Pressure 130/86 02/11/25 10:30 Pulse Oximetry 98 02/11/25 10:30 Oxygen Delivery Method Room Air 02/11/25 10:30 Medical Decision Making MDM Narrative Medical decision making narrative: My clinical impression is that she has fungal dermatitis. I will extend her oral Diflucan treatment and prescribe her Lotrisone. Treatment diagnosis and follow-up were discussed with the patient. Differential Diagnosis Differential Diagnosis: Fungal dermatitis, cellulitis Discharge Plan Discharge Chief Complaint: Skin/Abscess/Foreign Body Clinical Impression: Fungal dermatitis Patient Disposition: Home, Self-Care Time of Disposition Decision: 10:41 Condition: Good Mode of Transportation: Private Vehicle Prescriptions / Home Meds: New fluconazole 100 mg tablet 100 mg PO DAILY 7 Days Qty: 7 0RF clotrimazole-betamethasone 1-0.05 % cream 1 applic topical BID Qty: 90 0RF No Action ascorbic acid (vitamin C) [Vitamin C] 500 mg tablet 500 mg PO BID Align (B.infantis) 4 mg capsule 4 mg PO DAILY duloxetine 60 mg capsule,delayed release(DR/EC) 60 mg PO DAILY Jardiance 25 mg tablet 25 mg PO DAILY fluoxetine 60 mg tablet 60 mg PO DAILY lamotrigine 200 mg tablet 200 mg PO DAILY lurasidone 120 mg tablet 120 mg PO DAILY multivitamin with folic acid [Daily-Karely (with folic acid)] 400 mcg tablet 1 tab PO DAILY pioglitazone 30 mg tablet 30 mg PO DAILY rosuvastatin 10 mg tablet 10 mg PO DAILY trazodone 50 mg tablet 50 mg PO DAILY Rx Instructions: HS vitamin B complex Tablet 1 tab PO Q24H diclofenac sodium 75 mg tablet,delayed release (DR/EC) 75 mg PO BID PRN (Reason: pain) Qty: 60 2RF albuterol sulfate [Proventil HFA] 90 mcg/actuation HFA aerosol inhaler 2 inh inhalation QID PRN (Reason: shortness of breath or wheezing) fluticasone propionate [24 Hour Allergy Relief] 50 mcg/actuation spray,suspension 1 spray intranasal DAILY PRN (Reason: allergy symptoms) Rx Instructions: administer into each nostril albuterol sulfate 0.63 mg/3 mL solution for nebulization 0.63 mg inhalation TID PRN (Reason: bronchospasm) biotin injectioin .every other week invizia cyclobenzaprine 10 mg tablet See Rx Instructions .ROUTE .COMPLEX PRN (Reason: muscle spasm) Qty: 90 2RF Rx Instructions: 10MG PO AM 20MG PO HS cholecalciferol (vitamin D3) [Vitamin D3] 125 mcg (5,000 unit) tablet 125 mcg PO DAILY fexofenadine 180 mg tablet 180 mg PO DAILY lisdexamfetamine [Vyvanse] 70 mg capsule 70 mg PO QAM metoprolol succinate 25 mg tablet extended release 24 hr 25 mg PO DAILY ondansetron 4 mg tablet,disintegrating 4 mg PO Q6H PRN (Reason: nausea and vomiting) Qty: 12 0RF cyclobenzaprine 10 mg tablet 10 mg PO QID PRN (Reason: muscle spasm) Qty: 120 2RF gabapentin 300 mg capsule 600 mg PO TID Qty: 180 0RF docusate sodium 100 mg capsule 300 mg PO DAILY Linzess 290 mcg capsule 290 mcg PO DAILY gabapentin 300 mg capsule See Rx Instructions .ROUTE .COMPLEX Rx Instructions: 3 300MG CAPSULES TID #180 diclofenac sodium 75 mg tablet,delayed release (DR/EC) 75 mg PO BID PRN (Reason: pain) Qty: 60 2RF cyclobenzaprine 10 mg tablet 10 mg PO TID PRN (Reason: muscle spasm) Qty: 90 2RF Print Language: Swazi Instructions: Skin Yeast Infection (ED) Referrals: Loreto Mcneal NP [Primary Care Provider] - 1 week
--- OUTSIDE RECORDS SUMMARY | 2025-02-11 11:16 | XMS_ITS | Patient Health Record ---
Author Organization [facility] in [place] Address [address] [place] [address] Care Team Providers Care Cycle Manager Name Role Phone Rory Driver NP Primary Care Provider Unavailab carter Sultana, Lisa Unavailable [phone] Joy Yung Unavailable [phone] JORGE, LISA Unavailable [phone] Allergies Allergen (clinical drug ingredient) Drug/Non Drug Allergy documented on EMR Reaction Allergy Type Onset Date Status citalopram CeleXA Unknown Drug Allergy ActiveKeflexUnknownDrug AllergyActivemetforminMetforminUnknownDrug AllergyActive Results Component Value Reference Range Notes CBC AUTO DIFF (Not yet revie wed by provider) Interpretation: Performing Lab: Notes/Report: [facility] , White Blood Count 10.1 4.0-11.0 10 3/uL Red Blood Count5.164.20-5.40 10 6/uTOyhvzptgxu93.112.0-16.0 g/pAWymsmjugdt29.6 36.0-48.0 %Mean Corpuscular Gyivix94.481.0-99.0 fLMean Corpuscular Hemoglobin 27.326.7-34.0 pgMean Corpuscular HGB Conc31.629.9-35.2 g/dLRed Cell Distribution Width14.611.0-15.0 %Platelet Jugpq115301-808 10 3/uLMean Platelet Akvvlf27.09.5- 13.5 fLNeutrophils Percent Auto70.843.0-75.0 %Lymphocytes Percent Auto21.420.5- 60.0 %Monocytes Percent Auto5.81.7-12.0 %Eosinophils Percent Auto1.10.9-7.0 % Basophils Percent Auto0.40.2-2.0 %Immature Granulocytes Pct Auto0.50.0-0.5 % Neutrophils Absolute Auto7.21.4-6.5 10 3/uLLymphocytes Absolute Auto2.21.2-3.8 10 3/uLMonocytes Absolute Auto0.60.3-0.8 10 3/uLEosinophils Absolute Auto0.10.0- 0.7 10 3/uLBasophils Absolute Auto0.00.0-0.1 10 3/uLImmature Granulocytes Abs Auto0.050.00-0.03 10 3/uLPerforming Lab:see note - [facility] LB IRON AND TIBC (Not yet reviewed by provider) Interpretation: Performing Lab: Notes/Report: [facility] ,Iron86.050.0-170.0 ug/dLTotal Iron Binding Suiprigo325.0250.0-450.0 ug/dL Percent Iron Dxwimvwuud10.9Performing Lab:see note - [facility] LB XR foot LT min 3V (Not yet reviewed by provider) Interpretation: Performing Lab: Notes/Report: Source Facility: [place] [address] XRay Report Signed Patient: PEE WHITEHEAD MR#: [id number] : 1980 Acct:[id number] Age/Sex: 43 / F ADM Date: 04/06/24 Loc: RAD Attending Dr: Joy Yung D.P.M. Ordering Physician: Joy Yung D.P.M. Date of Service: 04/06/24 Procedure(s): XR foot LT min 3V Accession Number(s): [id number] cc: Joy Yung D.P.M.; Loreto Mcneal NP [place] [address] Patient Name: PEE WHITEHEAD MRN: [id number] date: 1980 Sex: F Assigned Patient Location: RAD Current Patient Location: ED.MAIN Accession/Order Number: [id number] Exam Date: 04/06/2024 11:15 Report Date: 04/08/2024 [...] Signed By: 04/08/24 1131 DD/ 1128 TD/TT: [employer] Architect:XR ankle LT min 3V (Not yet reviewed by provider) Interpretation: Performing Lab: Notes/Report: Source Facility: [place] [address] XRay Report Signed Patient: PEE WHITEHEAD MR#: [id number] : 1980 Acct:[id number] Age/Sex: 43 / F ADM Date: 04/06/24 Loc: RAD Attending Dr: Joy Yung D.P.M. Ordering Physician: Joy Yung D.P.M. Date of Service: 04/06/24 Procedure(s): XR ankle LT min 3V Accession Number(s): [id number] cc: Joy Yung D.P.M.; Loreto Mcneal NP [place] [address] Patient Name: PEE WHITEHEAD MRN: [id number] date: 1980 Sex: F Assigned Patient Location: [facility] Current Patient Location: ED.MAIN Accession/Order Number: [id number] Exam Date: 04/06/2024 11:15 Report Date: 04/08/2024 [...] Signed By: 04/08/24 1131 DD/ 1128 TD/TT: [employer] Architect:CBC AUTO DIFF (Not yet reviewed by provider) Interpretation: Performing Lab: Notes/Report: [facility] ,White Blood Count10.94.0-11.0 10 3/uLRed Blood Count5.204.20-5.40 10 6/uL Ezyzsoexlo92.812.0-16.0 g/eRMgvfdqodjl53.336.0-48.0 %Mean Corpuscular Lavcnm20.2 81.0-99.0 fLMean Corpuscular Bbvjbeqvvj93.526.7-34.0 pgMean Corpuscular HGB Conc 33.429.9-35.2 g/dLRed Cell Distribution Width14.611.0-15.0 %Platelet Szgxq750 150-450 10 3/uLMean Platelet Izjiow00.39.5-13.5 fLNeutrophils Percent Auto56.9 43.0-75.0 %Lymphocytes Percent Auto34.720.5-60.0 %Monocytes Percent Auto6.01.7- 12.0 %Eosinophils Percent Auto1.60.9-7.0 %Basophils Percent Auto0.30.2-2.0 % Immature Granulocytes Pct Auto0.50.0-0.5 %Neutrophils Absolute Auto6.21.4-6.5 10 3/uLLymphocytes Absolute Auto3.81.2-3.8 10 3/uLMonocytes Absolute Auto0.70.3-0.8 10 3/uLEosinophils Absolute Auto0.20.0-0.7 10 3/uLBasophils Absolute Auto0.00.0- 0.1 10 3/uLImmature Granulocytes Abs Auto0.050.00-0.03 10 3/uLPerforming Lab:see note - [facility] LBFOLATE (Not yet reviewed by provider) Interpretation: Performing Lab: Notes/Report: [facility] ,Pzwrjd36.008.60-58.90 ng/mLPerforming Lab:see note - [facility] LB PROF CHEM 8 (BAS METB) (Not yet reviewed by provider) Interpretation: Performing Lab: Notes/Report: [facility] ,Rxqrhb573960-771 mmol/LPotassium3.33.5-5.1 mmol/ZPixgzkbf97623-901 mmol/LCarbon Kwnjlpc89.221.0-32.0 mmol/LAnion Gap18.2Iqylhsb28220-235 mg/dLBlood Urea Wfqguuhq70.07.0-18.0 mg/dLCreatinine0.920.55-1.02 mg/dLEstimated GFR ( Regina>60>=60 mL/min/1.73m 2Estimated GFR (Non- Susanne>60>=60 mL/min/1.73m 2BUN Creatinine Ratio19.4Tpiomnr5.48.5-10.1 mg/dLPerforming Lab:see note - [facility] LBVITAMIN D 25 [place] (Not yet reviewed by provider) Interpretation: Performing Lab: Notes/Report: [facility] ,Vitamin D40.8 <20 ng/mL Vit D deficient 20-<30 ng/mL Vit D insufficient 30-100 ng/mL Vit D sufficient >100 ng/mL Potential Toxicity Performing Lab:see note - [facility] LBVitamin B12 (Not yet reviewed by provider) Interpretation: Performing Lab: Notes/Report: [facility] ,Vitamin N14230895-9809 pg/mL Performed at: - [facility] [id number] [employer] Technician: Harry Rodriguez PhD, Phone: [phone] Performing Lab:see noteLC - [facility] LBVITAMIN D 25 [place] (Not yet reviewed by provider) Interpretation: Performing Lab: Notes/Report: [facility] ,Vitamin D44.1 <20 ng/mL Vit D deficient 20-<30 ng/mL Vit D insufficient 30-100 ng/mL Vit D sufficient >100 ng/mL Potential Toxicity Performing Lab:see noteML - [facility] LBPROF 14(COMP METB) (Not yet reviewed by provider) Interpretation: Performing Lab: Notes/Report: [facility] ,Cmaivj233040-466 mmol/LPotassium4.03.5-5.1 mmol/UWphakflg64234-845 mmol/LCarbon Vuatcpy24.421.0-32.0 mmol/LAnion Gap12.6Efqgdil20858-644 mg/dLBlood Urea Kmxdzgal72.07.0-18.0 mg/dLCreatinine0.670.55-1.02 mg/dLEstimated GFR ( Regina>60>=60 mL/min/1.73m 2Estimated GFR (Non- Susanne>60>=60 mL/min/1.73m 2BUN Creatinine Ratio26.9Gtqaibm0.88.5-10.1 mg/dLBilirubin Total0.30.2-1.0 mg/dL Aspartate Amino Udxsrzehrus6581-56 U/LAlanine Chwvwbdkkeoybofv1748-49 U/L Alkaline Qdamxqtbuuk59648-991 U/LTotal Protein7.46.4-8.2 g/dLAlbumin Level3.5 3.4-5.0 g/dLGlobulin3.9Albumin Globulin Ratio0.9Performing Lab:see noteML - [facility] LBIRON AND TIBC (Not yet reviewed by provider) Interpretation: Performing Lab: Notes/Report: [facility] ,Iron74.050.0-170.0 ug/dLTotal Iron Binding Vjxgwbuj542.0250.0-450.0 ug/dL Percent Iron Rvcvvfnwni54.2Performing Lab:see noteML - [facility] LB FOLATE (Not yet reviewed by provider) Interpretation: Performing Lab: Notes/Report: [facility] ,Djcnud13.308.60-58.90 ng/mLPerforming Lab:see noteML - [facility] LB FERRITIN (Not yet reviewed by provider) Interpretation: Performing Lab: Notes/Report: [facility] ,Dkdrmjqt312.08.0-252.0 ng/mLPerforming Lab:see noteML - [facility] LBCBC AUTO DIFF (Not yet reviewed by provider) Interpretation: Performing Lab: Notes/Report: [facility] ,White Blood Count9.44.0-11.0 10 3/uLRed Blood Count4.614.20-5.40 10 6/uL Ahuofmaugc70.212.0-16.0 g/gACecmoqcfml23.136.0-48.0 %Mean Corpuscular Dhggyu78.0 81.0-99.0 fLMean Corpuscular Kykrorlhpd94.626.7-34.0 pgMean Corpuscular HGB Conc 32.929.9-35.2 g/dLRed Cell Distribution Width14.511.0-15.0 %Platelet Ewwni879 150-450 10 3/uLMean Platelet Ugttsj89.79.5-13.5 fLNeutrophils Percent Auto62.4 43.0-75.0 %Lymphocytes Percent Auto28.520.5-60.0 %Monocytes Percent Auto6.01.7- 12.0 %Eosinophils Percent Auto2.40.9-7.0 %Basophils Percent Auto0.40.2-2.0 % Immature Granulocytes Pct Auto0.30.0-0.5 %Neutrophils Absolute Auto5.91.4-6.5 10 3/uLLymphocytes Absolute Auto2.71.2-3.8 10 3/uLMonocytes Absolute Auto0.60.3-0.8 10 3/uLEosinophils Absolute Auto0.20.0-0.7 10 3/uLBasophils Absolute Auto0.00.0- 0.1 10 3/uLImmature Granulocytes Abs Auto0.030.00-0.03 10 3/uLPerforming Lab:see noteML - [facility] LBVitamin B12 (Not yet reviewed by provider) Interpretation: Performing Lab: Notes/Report: [facility] ,Vitamin [id number] pg/mL Performed at: [address] [id number] [employer] Technician: Harry Rodriguez PhD, Phone: [phone] Performing Lab[facility] LBLAB TESTING (Not yet reviewed by provider) Interpretation: Performing Lab: Notes/Report: [id number] Fer[facility]in [facility] ,Miscellaneous TestCOMMENT. Test Ordered: 192029 Ferritin Ferritin 730 [H ] ng/mL Reference Range: 15-150 Performed at: [address] [id number] [employer]: Harry Rodriguez PhD, Phone: [phone] Performing Lab:see [facility] LBIRON AND TIBC (Not yet reviewed by provider) Interpretation: Performing Lab: Notes/Report: [facility] ,Iron68.050.0-170.0 ug/dLTotal Iron Binding Rsolscjn748.0250.0-450.0 ug/dL Percent Iron Uhpfwksgdq84.1Performing Lab:see note - [facility] LB Vitamin B12 (Not yet reviewed by provider) Interpretation: Performing Lab: Notes/Report: [facility] ,Vitamin [id number] pg/mL Performed at: [address] [id number] [employer]: Harry Rodriguez PhD, Phone: [phone] Performing Lab:[facility] LBVITAMIN D 25 [place] (Not yet reviewed by provider) Interpretation: Performing Lab: Notes/Report: [facility] ,Vitamin D44.7 <20 ng/mL Vit D deficient 20-<30 ng/mL Vit D insufficient 30-100 ng/mL Vit D sufficient >100 ng/mL Potential Toxicity [facility]forming [facility] LBPROF 14(COMP METB) (Not yet reviewed by provider) Interpretation: Performing Lab: Notes/Report: [facility] ,Pxxycv751769-466 mmol/LPotassium3.73.5-5.1 mmol/NSutqdrii47557-525 mmol/LCarbon Ilxbola51.521.0-32.0 mmol/LAnion Gap12.2Natvteq55344-446 mg/dLBlood Urea Jdddbeff87.07.0-18.0 mg/dLCreatinine0.840.55-1.02 mg/dLEstimated GFR ( Regina>60>=60 mL/min/1.73m 2Estimated GFR (Non- Susanne>60>=60 mL/min/1.73m 2BUN Creatinine Ratio17.1Dayzklb9.78.5-10.1 mg/dLBilirubin Total0.30.2-1.0 mg/dL Aspartate Amino Hpciffljigk1335-53 U/LAlanine Bfxokjsxhsavmtnu5515-23 U/L Alkaline Aozrzumqwwm5253-400 U/LTotal Protein7.06.4-8.2 g/dLAlbumin Level3.53.4- 5.0 g/dLGlobulin3.5Albumin Globulin Ratio1.0Performing Lab:see noteML - [facility] LBIRON AND TIBC (Not yet reviewed by provider) Interpretation: Performing Lab: Notes/Report: [facility] ,Iron44.050.0-170.0 ug/dLTotal Iron Binding Hojkglyr226.0250.0-450.0 ug/dL Percent Iron Hcsrwwywuk49.9Performing Lab:see noteML - [facility] LB FERRITIN (Not yet reviewed by provider) Interpretation: Performing Lab: Notes/Report: [facility] ,Ovssgsii705.08.0-252.0 ng/mLPerforming Lab:see noteML - [facility] LBCBC AUTO DIFF (Not yet reviewed by provider) Interpretation: Performing Lab: Notes/Report: [facility] ,White Blood Count8.74.0-11.0 10 3/uLRed Blood Count4.744.20-5.40 10 6/uL Ciqekrsulr85.512.0-16.0 g/lPBtimsjukcf77.236.0-48.0 %Mean Corpuscular Pawtxf47.9 81.0-99.0 fLMean Corpuscular Dddpsszerb23.526.7-34.0 pgMean Corpuscular HGB Conc 32.829.9-35.2 g/dLRed Cell Distribution Width13.511.0-15.0 %Platelet Svaqn979 150-450 10 3/uLMean Platelet Wupnqb09.19.5-13.5 fLNeutrophils Percent Auto65.1 43.0-75.0 %Lymphocytes Percent Auto28.020.5-60.0 %Monocytes Percent Auto5.01.7- 12.0 %Eosinophils Percent Auto1.30.9-7.0 %Basophils Percent Auto0.30.2-2.0 % Immature Granulocytes Pct Auto0.30.0-0.5 %Neutrophils Absolute Auto5.61.4-6.5 10 3/uLLymphocytes Absolute Auto2.41.2-3.8 10 3/uLMonocytes Absolute Auto0.40.3-0.8 10 3/uLEosinophils Absolute Auto0.10.0-0.7 10 3/uLBasophils Absolute Auto0.00.0- 0.1 10 3/uLImmature Granulocytes Abs Auto0.030.00-0.03 10 3/uLPerforming Lab:see noteML - [facility] LBVitamin B12 (Not yet reviewed by provider) Interpretation: Performing Lab: Notes/Report: [facility] ,Vitamin [id number] pg/mL Performed at: [address] [id number] [employer]ician: Harry Rodriguez PhD, Phone: [phone] Performing Lab:see note - [facility] LBTSH W/ REFLEX FT4 (Not yet reviewed by provider) Interpretation: Performing Lab: Notes/Report: [facility] ,TSH W/ REFLEX FT41.2720.358-3.740 uIU/mLPerforming Lab:see noteML - [facility] LBVITAMIN D 25 [place] (Not yet reviewed by provider) Interpretation: Performing Lab: Notes/Report: [facility] ,Vitamin D40.9 <20 ng/mL Vit D deficient 20-<30 ng/mL Vit D insufficient 30-100 ng/mL Vit D sufficient >100 ng/mL Potential Toxicity Performing Lab:see note - [facility] LBPROF CHEM 8 (BAS METB) (Not yet reviewed by provider) Interpretation: Performing Lab: Notes/Report: [facility] ,Pinyfu648973-322 mmol/LPotassium3.93.5-5.1 mmol/FJigahwlv63584-852 mmol/LCarbon Qchcnqv90.121.0-32.0 mmol/LAnion Gap14.6Pbhjlca4499-123 mg/dLBlood Urea Nitrogen 25.07.0-18.0 mg/dLCreatinine0.830.55-1.02 mg/dLEstimated GFR ( Regina>60 >=60 mL/min/1.73m 2Estimated GFR (Non- Susanne>60>=60 mL/min/1.73m 2BUN Creatinine Ratio30.5Brphlgz3.98.5-10.1 mg/dLPerforming Lab:see noteML - [facility] LBFERRITIN (Not yet reviewed by provider) Interpretation: Performing Lab: Notes/Report: [facility] ,Ztnyumua818.08.0-252.0 ng/mLPerforming Lab:see noteML - [facility] LB Reason For Referral Reason Referral to [employer]. 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, [facility] and foot M19.172 ; Ingrowing nail L60.0 ; Tinea unguium B35.1 and Pain in left ankle and joints of left foot M25.572[facility] [address] [place] [place] [address]/[facility] [address] [place] [address]/[facility] Q[address]ymzcw[address] [facility] [place] [address]/ [facility] [address] [place] [address]/[facility] Assessments Encounter Date Diagnosis (ICD Code) Assessment [...] and will call when additional injection is lrsoxe1304/06/2024Ingrowing nail (ICD-10 - L60.0)Bilateral great toenails were debrided sharply without incident to patient satisfaction. [facility] may continue to manage on her own with an emery board but will call if additional debridement is wfmipi6904/06/2024Tinea unguium (ICD-10 - B35.1)04/06/2024Pain in left ankle [...] AUTO DIFF 08/18/2023 CBC AUTO DIFF 09/15/2024 CBC AUTO DIFF 12/15/2024 FERRITIN 12/15/2024 FERRITIN 06/13/2024 FERRITIN 07/21/2023 FERRITIN 09/29/2023 FERRITIN 02/01/2024 FERRITIN 03/24/2024 FOLATE 08/18/2023 FOLATE 09/15/2024 FOLATE 12/15/2024 FREE T4 08/18/2023 FREE T4 09/29/2023 IRON AND TIBC 09/29/2023 IRON AND TIBC 07/21/2023 IRON AND TIBC 03/24/2024 IRON AND TIBC 02/01/2024 IRON AND TIBC 12/15/2024 IRON AND TIBC 06/13/2024 IRON AND TIBC 09/15/2024 LAB TESTING 09/15/2024 PROF 14(COMP METB) 12/15/2024 PROF 14(COMP METB) 06/13/2024 PROF CHEM 8 (BAS METB) 03/24/2024 PROF CHEM 8 (BAS METB) 09/15/2024 TSH 08/18/2023 TSH 09/29/2023 VITAMIN D 25 [place] 09/29/2023 VITAMIN D 25 [place] 03/24/2024 VITAMIN D 25 [place] 02/01/2024 VITAMIN D 25 [place] 06/13/2024 VITAMIN D 25 [place] 09/15/2024 VITAMIN D 25 [place] 12/15/2024 XR foot LT min 3V 04/08/2024 XR ankle LT min 3V 04/08/2024 Vitamin B12 09/29/2023 Vitamin B12 08/18/2023 TSH W/ REFLEX FT4 03/24/2024 Vitamin B12 02/01/2024 Vitamin B12 03/24/2024 Vitamin B12 12/15/2024 Vitamin B12 09/15/2024 Vitamin B12 06/13/2024 Insurance Providers Payer Name Payer Address Payer Phone Subscriber Number Group Number Insured Name Patient Relationship to Insured Coverage Start Date Coverage End Date [employer] [place] [employer] [address] [place] [phone] [id number] Lyudmila Whitehead - patient is the [id number] 2013 Medications Administered Medication Instructions Date of Administration Dosage Notes Betamethasone Acetate mLCelestone 6mg/mL mLCelestone 6mg/mL mL Lidocaine HCl mLLidocaine HCl mL Medical (General) History Medical History History ICD Code 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
--- OUTSIDE RECORDS SUMMARY | 2025-02-11 11:16 | XMS_ITS | Encounter Summary ---
Author Organization [facility] Address [address] [place] [address] Care Team Providers Care Item Repair Manager Name Role Phone Key Andrea SYSTEMS CHECKOUT MECHANIC Unavailable Shawna Dudley DO Primary Care Provider [phone] Sasha Santos DO Unavailable [phone] Mendez Ortiz DO Unavailable [phone] Encounter Details DateTypeDepartmentCare Team (Latest Contact Info)Zcydvqcsqsc11/08/2025Telephone [facility] [address] [place] [address] Roel Garber DO [address] [place], [place] [address] Social History Tobacco UseTypesPacks/DayYears UsedDateSmoking Tobacco: NeverSmokeless Tobacco: NeverAlcohol UseStandard Drinks/WeekCommentsNever0 (1 standard drink = 0.6 oz pure alcohol)CommentsNoSex and Gender InformationValueDate RecordedSex Assigned at BirthNot on fileLegal HezXompvv49/15/2023 8:01 PM EDTGender Identity Not on fileSexual OrientationNot on filedocumented as of this encounter Miscellaneous Notes * Telephone Encounter - Becky Silvestre LPN - 02/06/2025 12:56 PM EST Patient called the office and she was asking for a refill on the medication that we send to [facility] her and she is also asking for her calcium and vitamin D. Called [facility] and they are going to be faxing that refill request to the office. Patient aware the [facility] d [facility] else listed for the script. Patient states she will look and see if they are filling it. documented in this encounter Plan of Treatment DateTypeDepartmentCare Team (Latest Contact Info)Kgjuyupeapm03/05/2026 9:15 AM ESTOffice Visit [facility] [place] [facility] [address] [place] [address] Archana Naylor, [facility] [address] [place] [address] 04/06/2025 10:40 AM ESTOffice Visit [facility] [address] [place] [address] Cleo Zambrano MD [address] [place] [address] 05/31/2025 1:00 PM EDTOffice Visit [facility] [address] [place] [address] Roel Garber DO [address] [facility] [place] [address] 08/18/2025 2:00 PM EDTOffice Visit [facility] [address] [place] [address] Mendez Ortiz DO [address] [place] [address] documented as of this encounter Visit Diagnoses Not on filedocumented in this encounter Care Teams Team MemberRelationshipSpecialtyStart DateEnd Date Shawna Dudley DO [address] [place] [address] PCP - GeneralFamily Medicine04/14/22 Key Andrea NP [address] [place] [address] Referring PhysicianFamily Medicine08/13/23 Sasha Santos DO [address] [place], [place] [address] Referring PhysicianNeurology05/10/24 Mendez Ortiz DO [address] [place] [address] Otolaryngology08/19/24documented as of this encounter
--- OUTSIDE RECORDS SUMMARY | 2025-02-11 11:16 | XMS_ITS | Encounter Summary ---
Author Organization [facility] Address [address] [place] [address] Care Team Providers Care Roll Dough Divider Name Role Phone Key Andrea TIMBER KILLER Unavailable Shawna Dudley DO Primary Care Provider [phone] Sasha Santos DO Unavailable [phone] Mendez Ortiz DO Unavailable [phone] Encounter Details DateTypeDepartmentCare Team (Latest Contact Info)Jsfcrddgiwo41/04/2025amboo flowsheet [facility] [address] [place] [address] Archana Naylor, MARKET RESEARCH SENIOR PROJECT MANAGER-CLINICAL PSYCHOLOGY TEACHER [address] [place], [place] [address] Social History Tobacco UseTypesPacks/DayYears UsedDateSmoking Tobacco: NeverSmokeless Tobacco: NeverAlcohol UseStandard Drinks/WeekCommentsNever0 (1 standard drink = 0.6 oz pure alcohol)CommentsNoSex and Gender InformationValueDate RecordedSex Assigned at BirthNot on fileLegal QorEwedrj32/15/2023 8:01 PM EDTGender Identity Not on fileSexual OrientationNot on filedocumented as of this encounter Plan of Treatment DateTypeDepartmentCare Team (Latest Contact Info)Oajmoaheurj83/05/2026 9:15 AM ESTOffice Visit [facility] [address] [place] [address] Archana Naylor, MARKET RESEARCH SENIOR PROJECT MANAGER-CLINICAL PSYCHOLOGY TEACHER [address] [place] [address] 04/06/2025 10:40 AM ESTOffice Visit [facility] [address] [place] [address] Cleo Zambrano MD [address] [place] [address] 05/31/2025 1:00 PM EDTOffice Visit [facility] [address] [place] [address] Roel Garber DO [address] [place] [address] 08/18/2025 2:00 PM EDTOffice Visit [facility] [address] [place] [address] Mendez Ortiz DO [address] [place] [address] documented as of this encounter Visit Diagnoses Not on filedocumented in this encounter Care Teams Team MemberRelationshipSpecialtyStart DateEnd Date Shawna Dudley DO [address] [place] [address] PCP - GeneralFamily Medicine04/14/22 Key Andrea NP [address] [place] [address] Referring PhysicianFamily Medicine08/13/23 Sasha Santos DO [address] [place] [address] Referring PhysicianNeurology05/10/24 Mendez Ortiz DO [address] [place] [address] Otolaryngology08/19/24documented as of this encounter
--- OUTSIDE RECORDS SUMMARY | 2025-02-11 11:16 | XMS_ITS | Clinical Summary ---
Author Organization [facility] tem Address [id number] [address] [place] [address] Care Team Providers Care Design Engineering Intern Name Role Phone Services, [facility] Primary Care Provider Allergies Active AllergyReactionsCriticalityNoted NvdfBmfzjkpaKkzgtodfkt94/17/2017 Eolgrrmhcl28/17/2102QogqsbpnaZqzp71/14/2023 Severe hypoglycemia Poison Devorah Pggtquj6304/15/2022 Medications MedicationSigDispense QuantityRefillsLast FilledStart DateEnd DateStatus nqzcodfi-fklc-AD-calcium &mins (THERAGRAN-M) 9 mg iron-400 mcg tablet Take 1 tablet by mouth in the morning.Active blood-glucose meter (TRUE METRIX GLUCOSE METER) misc use to test BLOOD SUGAR TWICE DAILY 1 each 06/17/2018Active gabapentin (NEURONTIN) 100 mg capsule Take 1 capsule (100 mg total) by mouth in the morning and 1 capsule (100 mg total) before bedtime.Active SUMAtriptan (IMITREX) 100 mg tablet TAKE 1 TABLET BY MOUTH at onset of FOR MIGRAINE. May repeat once after 2 hours if needed (max 2 TABLETS per day, 2 TABLETS per week)Active rizatriptan (MAXALT) 10 mg tablet TAKE 1 TABLET BY MOUTH at onset of migraine, may repeat after 2 hours if needed (max 2 tablets per day, 2 days per week)Active lamoTRIgine (LaMICtal) 200 mg tablet Take 1 tablet (200 mg total) by mouth in the morning.02/13/2019Active FLUoxetine (PROzac) 60 MG tablet Take 1 tablet (60 mg total) by mouth in the morning.07/14/2019Active B COMPLEX-VITAMIN B12 tablet TAKE 1 TABLET BY MOUTH DAILY 30 tablet Active lancets (UNILET LANCET) 28 gauge misc Use to test BLOOD SUGAR TWICE DAILY, Diagnosis: E11.9 100 each ctive traZODone (DESYREL) 50 mg tablet as needed.04/17/2020ctive lurasidone (LATUDA) 120 mg tablet tablet Take 1 tablet (120 mg total) by mouth daily with breakfast.04/17/2020ctive pioglitazone (ACTOS) 30 mg tablet Take 1 tablet (30 mg total) by mouth daily. 30 tablet ctive blood sugar diagnostic (TRUE METRIX GLUCOSE TEST STRIP) strip Indications:Type 2 diabetes mellitus without complications ([facility])Use to test BLOOD SUGAR TWICE DAILY 100 strip ctive fluticasone propionate (FLONASE) 50 mcg/actuation nasal spray instill 2 (TWO) sprays in EACH nostril ONCE DAILY 16 g 07/16/2020ctive albuterol (PROVENTIL HFA;VENTOLIN HFA) 90 mcg/actuation inhaler Indications:Obstructive sleep apnea syndromeINHALE 2 PUFFS BY MOUTH EVERY 6 HOURS NEEDED FOR WHEEZING 18 g 07/16/2020ctive empagliflozin (JARDIANCE) 25 mg tablet tablet Take 1 tablet (25 mg total) by mouth in the morning.Active rosuvastatin (CRESTOR) 20 mg tablet Take 1 tablet (20 mg total) by mouth in the morning.Active CHOLECALCIFEROL, VITAMIN D3, ORAL Take 5,000 Units by mouth in the morning.04/09/2021ctive lisdexamfetamine (VYVANSE) 70 mg capsule 01/09/2022ctive ibuprofen (MOTRIN) 800 mg tablet Take 1 tablet (800 mg total) by mouth every 6 (six) hours as needed for pain. Active NON FORMULARY Neosporin cream- applies to bilateral nostrils 3 times a dayActive fexofenadine (JONATHAN) 60 mg tablet Take 1 tablet (60 mg total) by mouth in the morning.Active docusate sodium (COLACE) 100 mg capsule 01/07/2023ctive traMADoL (ULTRAM) 50 mg tablet Take 1 tablet (50 mg total) by mouth daily as needed for pain.Active ascorbic acid (VITAMIN C) 500 mg tablet Take 1 tablet (500 mg total) by mouth in the morning and 1 tablet (500 mg total) before bedtime.02/24/2023ctive ALIGN 4 mg capsule Take 1 capsule (4 mg total) by mouth in the morning.Active DULoxetine (CYMBALTA) 30 mg capsule Take 1 capsule (30 mg total) by mouth in the morning. 30 capsule ctive pantoprazole (PROTONIX) 20 mg EC tablet Take 1 tablet (20 mg total) by mouth in the morning.Active ferrous gluconate (FERGON) 256 mg (28 mg iron) tablet Take 246 mg by mouth in the morning.Active tirzepatide (MOUNJARO) 2.5 mg/0.5 mL pen injector Inject 2.5 mg under the skin every 7 days.Active cyclobenzaprine (FEXMID) 7.5 MG tablet Take 1 tablet (7.5 mg total) by mouth 3 (three) times a day as needed for muscle spasms.Active linaCLOtide (LINZESS) 72 mcg capsule Take 1 capsule (72 mcg total) by mouth in the morning.Active metoprolol succinate XL (TOPROL XL) 25 mg 24 hr tablet Take 1 tablet (25 mg total) by mouth in the morning.Active Active Problems ProblemNoted DateDiagnosed GbciRvorkwvters72/08/2024Mass of upper outer quadrant of right auhbsc9006/02/2023Symptomatic mammary utkhdkfkpxd39/02/2024isorder of xcwysf0001/29/2023Intervertebral disc 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 12/02/2022xillary pvmvscmdcjvsijm72/11/2021isc displacement, rrrukh0010/11/2018 Overview (10/11/2018): Added automatically from request for surgery [id number] Lumbosacral spondylosis without uqokbdetjd14/23/2019 Overview (07/22/2018): Added automatically from request for surgery [id number] PTSD (post-traumatic stress disorder)06/16/2018Type 2 diabetes mellitus without iipwdbrkfyxp48/11/2018Cervical disc xnuoxbnmkcru64/23/2018Postoperative abscess 09/28/2016Acute kfqtxakxdmwra43/17/2017Diverticulitis Encounters DateTypeDepartmentCare DzdtMxnllscqgyv53/21/2025Telephone [facility] [address] [place] [id number] Lily Lopez CMA 12/08/2024Telephone [facility] [address] [place] [address] Uri Rowland Prior Unttaoiqjkjxj41/16/2025Telephone [facility] [address] [facility] [address] [place] [address] Dwayne Khoury MD from Last 3 Months Immunizations ImmunizationAdministration DatesNext DueInfluenza Whole12/03/2012,12/29/2011, 12/23/2010,12/18/2008Influenza, Injectable, quadrivalent (PF)12/19/2018, 12/02/2017Influenza, Live, Refppxcgvz56/20/2014Influenza, Knqbajlnndi90/11/2017 Pneumococcal Conjugate 13-Xisdml6312/02/2017 Family History Medical HistoryRelationNameCommentsBleeding DisorderFatherDiabetesFatherThyroid IssuesFatherStrokeMaternal GrandfatherBreast cancerMaternal GrandmotherDiabetes MotherThyroid IssuesMotherStrokePaternal GrandmotherAnesthesia problemsNeg Hx RelationNameStatusCommentsFatherDeceasedMaternal GrandfatherMaternal Grandmother DeceasedMotherAlivePaternal Grandmother Social History Tobacco UseTypesPacks/DayYears UsedDateSmoking Tobacco: NeverSmokeless Tobacco: Never Tobacco Cessation:Counseling Given: Not Answered Alcohol UseStandard Drinks/WeekCommentsNo0 (1 standard drink = 0.6 oz pure alcohol)PHQ-2AnswerDate RecordedTotal Wpvez9141ChildcareAnswerDate QglhvugjBpgxvuemtTbdttqj60/30/2019EmploymentAnswerDate RecordedEmploymentUnknown 07/29/2018Hunger ScreeningAnswerDate RecordedWithin the past 12 months we worried whether our food would run out before we got money to buy more.Never True10/05/2023Within the past 12 months the food we bought just didn't last and we didn't have money to get more.Never True4Purpose - LifeAnswerDate RecordedPurpose and direction in fwvsDxhlouo20/12/2021CommentsNoSex and Gender InformationValueDate RecordedSex Assigned at BirthNot on fileLegal Sex Wlaotk6810/05/2014 11:45 AM EDTGender IdentityNot on fileSexual OrientationNot on fileOccupationIndustryJob Start DateJob End DatecashierNot on fileNot on fileNot on file Last Filed Vital Signs Vital SignReadingTime TakenCommentsBlood Ktyuzsge363/9406 2:55 PM EDT Ikzgl37996/19/2025 2:34 PM OQQIbdzooukeds87 ??C (96.8 ??F)08/18/2024 2:15 PM EDT Respiratory Ecbe542108/18/2024 2:55 PM EDTOxygen Qqbxxypyit43%08/18/2024 3:00 PM EDTInhaled Oxygen Concentration--Rzixtx77.8 kg (220 lb)08/18/2024 11:02 AM EDT Tumyii917 cm (5' 3 )08/18/2024 11:02 AM EDTBody Mass Index38.9708/18/2024 11:02 AM EDT Plan of Treatment Health MaintenanceDue DateLast DoneCommentsDiabetic Ophthalmology Exam1980 Statin Use: Kdhnydcz76/26/1981Depression Pxagzpkar64/26/1993Adult BMI Follow Up Plan1998Diabetic Foot ExamCOVID-19 Vaccine ( season), 12/22/2022, 02/07/2022, Additional history existsInfluenza Tnivprm55/08/2023, 12/22/2022, 12/23/2021, Additional history existsAdult BMI Dxnygqqke11Tobacco Wiqfcmzni58/19/2026 08/18/2024Pap Smear, 05/19/2022TaP,Tdap and Td Vaccines (2 - Td or Tdap)/05/2021, 09/02/2021 Medical Devices ImplantedTypeAreaManufacturerDevice IdentifierShelf Expiration DateModel / Serial / LotAnchor Sut 5.5mm 2 Ft Crkscr Fbrwr Shldr 3 Pk 14.7mm Strl Ea=Bill- Only Rpl [id number] - [id number] Implanted:Qty: 1 on 05/15/2022 by [facility]gram [facility]: WikayoddRadxvdh64/31/[id number]-0 / / [id number] System, Hand/Wrist Internal Brace Ligament Augmentation Repair Implanted:Qty: 1 on 08/18/2024 by [facility] ImplantRight: [id number] / / [id number] Dx Swivelock Sl, With Forked Eyelet, 3.5 X 8.5mm Implanted:Qty: 1 on 08/18/2024 by [facility] ImplantRight: [id number] / / [id number] Dx Swivelock Sl, With Forked Eyelet, 3.5 X 8.5mm Implanted:Qty: 1 on 08/18/2024 by [facility] ImplantRight: [id number] / / [id number] 9inch Yasmine Pin Implanted:Qty: 1 on 08/18/2024 by [facility]pe [facility]gram [facility]: [facility] [id number] / / ExplantedTypeAreaManufacturerDevice IdentifierShelf Expiration DateModel / Serial / Lot9 Inch 0.062 Yasmine Pin Explanted:Qty: 1 on 08/18/2024 by Chepe Ingram [facility]: LubnaBrafarhad [facility] [id number] / / Procedures Procedure NamePriorityDate/TimeAssociated DiagnosisCommentsAMB REFERRAL TO EBMTBQRXRweymbm10/04/2019 Pain in both feet from Last 3 Months or Most Recently Relevant to Health Maintenance Results * Ambulatory referral to Podiatry (01/03/2019)Specimen (Source)Anatomical Location / LateralityCollection Method / VolumeCollection TimeReceived Time 01/03/2019 Narrative Authorizing ProviderResult TypeResult StatusDavid Donna Pathak MDOUTPATIENT REFERRAL ORDERABLESFinal ResultPerforming OrganizationAddressCity/State/ZIP Code Phone Number MANUALLY TRANSCRIBED RESULTS from Last 3 Months or Most Recently Relevant to Health Maintenance Insurance Advance Directives * Full Code (Latest Code Status on File) Date ActivatedDate InactivatedComments09/16/2016 3:19 PM09/17/2016 8:38 PM Care Teams Team MemberRelationshipSpecialtyStart DateEnd Date Services, [facility] [address] [place], [place] PCP - GeneralFamily Medicine10/05/23
--- OUTSIDE RECORDS SUMMARY | 2025-02-11 11:17 | XMS_ITS | Clinical Summary ---
Author Organization [facility] Address [address] [place] [address] Care Team Providers Care Creative Resource Manager Name Role Phone Loreto Mcneal Primary Care Provider [phone] Allergies Active AllergyReactionsCriticalityNoted DateCommentsBiguanidesOther,UnknownHigh 04/15/2022 Severe hypoglycemia Other Reaction(s): Other (See Comments), Unknown Reaction Hypoglycemia Hypoglycemia CephalexinHives,Other,MvsucmuBxin86/15/2014 Shortness of breath, throat felt tight Other Reaction(s): Other: See Comments, Unknown Shortness of breath, throat felt tight Other Reaction(s): Swelling of Lip/Tongue/Throat, hives CitalopramHives,Wnraarn9707/14/2013 Other Reaction(s): Other: See Comments, Unknown palpitations Other Reaction(s): Palpitations, anaphylaxis Citalopram SvqdhxhjiefxUbzrf42/15/2014 palpitations Poison Devorah DodwcsnFkrcnqp71/14/0381OctjxxqtujyVvcdran80/30/2025 Medications MedicationSigDispense QuantityRefillsLast FilledStart DateEnd DateStatus Saez 2.5 mg/0.5 mL pen injector INJECT 2.5 MG SUBCUTANEOUSLY (UNDER THE SKIN) EVERY 7 DAYS5Active ascorbic acid (Vitamin C) 500 mg tablet Take 500 mg by mouth twice a day.3Active Align, B.infantis, 4 mg capsule Take 1 capsule by mouth in the morning.3Active cholecalciferol, vitamin D3, 50 mcg (2,000 unit) [...] in the morning.Active Active Problems ProblemNoted DateDiagnosed DateElevated liver function tests01/09/2025Fatty liver01/09/2025GERD (gastroesophageal reflux disease)01/09/2025History of kidney ctttbb5101/09/20257272Phnusdpmqax35/10/3179Wanhcutbiosc39/10/2025IBS (irritable bowel syndrome)01/09/2025Irritable bowel syndrome with wmzijgynwgmy79/10/2025 Musculoskeletal chest pain01/09/2025Postoperative pain01/09/2025Reactive jpthaojrcbpa55/10/2528Hoxnujbsbrqq51/02/2025DHD (attention deficit hyperactivity disorder), combined type11/23/2024ipolar affective disorder, currently manic, lrigorcq64/24/2025ipolar disorder, current episode mixed, kynbizyb38/24/2025hronic pain11/23/2024ircadian rhythm sleep disorder, shift work type11/23/2024Impulse control udfmkdyh90/24/2298Dhxbol34/24/2025Post- traumatic osteoarthritis, left ankle and foot11/23/2024Secondary localized osteoarthrosis of ankle and foot11/23/2024Ureteral stone with hydronephrosis 11/15/2024Other osteoporosis without current pathological zfmmbozs29/03/2025 Hyperlipidemia, /12/2024Type 2 diabetes mellitus with hyperglycemia 02/11/2024Vitamin D deficiency, aciszukrtlp66/12/8511Jyzatzzlkoh07/08/2024Mass of upper outer quadrant of right bdkizm5506/02/2023Symptomatic mammary hypertrophy 06/02/2023Well woman exam with routine gynecological exam05/25/2023nemia 03/10/20236630Hntyog94/09/2024ilateral foot pain03/10/2023hronic rhinitis 03/10/20230902Aepzvhgoxrhgoc81/09/5974Ralfekk44/09/2024ecurrent rcmyyqpam52/09/2024 Disorder of rfvwdi0201/29/2023Intervertebral disc stenosis of neural canal of cervical qzromx1912/02/2022xillary hmyppjrbwryfhgp31/11/2021isc displacement, vkutjb4010/11/2018 Overview (11/23/2024): Added automatically from request for surgery [id number] Lumbosacral spondylosis without vueizxvoph49/23/2019 Overview (11/23/2024): Added automatically from request for surgery [id number] Posttraumatic stress iwegjmfm83/17/2019Type 2 diabetes mellitus without xoueuegdtiga43/11/2018Cervical disc qzjtqmghxmpe16/23/2018Acute cholecystitis 09/15/2016 Encounters DateTypeDepartmentCare LihoPqymrsgqgla07/10/2025 2:00 PM ESTOffice Visit [address] [place] [address] Gautam Lunsford MD Precordial chest pain (Primary Dx); Ujijqvvnxtg37/30/2025Orders Only [facility] [address] [place] [address] Ana Latham MD 12/20/2024Telephone [facility] [address] [place] [address] Asha Aaron MA 11/23/2024 11:00 AM EDTOffice Visit [facility] [address] [place] [address] Gautam Lunsford MD Pre-op evaluation (Primary Dx); Precordial chest pain11/23/2024Orders Only [facility] [address] [place] [address] Torie Jimenez MA Other chest [...] otherwise physically hurt by your partner or ex-partner?06/20/2024Within the last year, have you been raped or forced to have any kind of sexual activity by your part ner or ex-partner?No06/20/2024PHQ-2AnswerDate RecordedPatient Health Questionnaire-2 Sejme319CommentsUnknownSex and Gender InformationValueDate RecordedSex Assigned at ChmvlEnlgvb86/19/2025 3:57 PM EDT Legal DlyKrdwix07/29/2025 2:34 PM ESTGender CjsqauflNefvql87/19/2025 3:57 PM EDT Sexual OrientationHeterosexual or Lgyvuess82/19/2025 3:57 PM EDT Last Filed Vital Signs Vital SignReadingTime TakenCommentsBlood Jyytdvwt432/8701/09/2025 1:51 PM EST Mtavm96259/10/2025 1:51 PM ESTTemperature--Respiratory Rate--Oxygen Saturation 98%01/09/2025 1:51 PM ESTInhaled Oxygen Concentration--Zxqjuw770 kg (222 lb) 01/09/2025 1:51 PM PZQVfolwi448 cm (5' 3 )01/09/2025 1:51 PM ESTBody Mass Index 39.33103/11/2024 1:51 PM EST Plan of Treatment Health MaintenanceDue DateLast DoneCommentsDiabetes: Hemoglobin A1C1980 Diabetes: Retinopathy Fderqcufy63/26/1991Varicella Vaccines (1 of 2 - 13+ 2-dose series)1993Diabetes: Urine Protein Gfwwewhyy79/26/2000HPV Vaccines (1 - 3- dose SCDM series)09/25/2007HPV/Himfzu4509/24/20108894Ufispsqwb02/26/2021COVID-19 Vaccine ( season)/08/2023, 12/22/2022, 02/07/2022, Additional history existsDepression Zhsxnqyha82/21/989518/5Cervical Cancer Iytkuwxif17/25/2027Pap Smear/Zoster Vaccines (1 of 2) 1Adult Xtjmyin36/05/2021, 09/02/2021neumococcal Vaccine: Pediatrics (0 to 5 Years) and At-Risk Patients (6 to 64 Years)Completed 02/07/2022, 12/02/2017Hepatitis B DfjzuqsjDlqyyezhn17/25/2024, 12/22/2022, 06/23/2022Influenza WkmixqcDcekcqewa80/22/2025, 12/07/2023, 12/22/2022, Additional history existsHIB VaccinesAged OutNo [...] Procedures Procedure NamePriorityDate/TimeAssociated DiagnosisCommentsECG 12 LEAD UNIT VMCOEHMTJFtkbntq38/10/2025 2:25 PM EST Tachycardia LEXISCAN STRESS MYOCARDIAL PERFUSION WICKDULBxdmndx38/29/2025 10:27 AM EDTECG 12 LEAD UNIT KPOFKYASMYnwdyml53/24/2025 10:52 AM EDT Pre-op evaluation from Last 3 Months Results * ECG 12 lead unit performed (01/09/2025 2:25 PM EST) Only the most recent of2 resultswithin the time period is included. Specimen (Source)Anatomical Location / LateralityCollection Method / Volume Collection TimeReceived Time Narrative Authorizing ProviderResult TypeResult StatusChrisisa Lunsford MDECG ORDERABLES Final Result * Lexiscan Stress Myocardial Perfusion Imaging (12/28/2024 10:27 AM EDT) Anatomical RegionLateralityModalityOther Narrative Authorizing ProviderResult TypeResult StatusHistorical Provider MDCV STRESS PROCEDURESFinal Result from Last 3 Months Insurance Care Teams Team MemberRelationshipSpecialtyStart DateEnd Date Loreto Mcneal [address] [facility]03/30/24
--- OUTSIDE RECORDS SUMMARY | 2025-02-11 11:17 | XMS_ITS | Patient Health Record ---
Author Organization [facility] es Address [address] [place] [address] Care Team Providers Care Woods Rider Name Role Phone Chinyere Calix Primary Care Provider [phone] Katharine Valdez Unavailable [phone] Allergies Allergen (clinical drug ingredient) Drug/Non Drug Allergy documented on EMR Reaction Allergy Type Onset Date Status citalopram Celexa Unknown Drug Allergy ActiveKeflexUnknownDrug AllergyActive Results Component Value Reference Range Notes Glucose Poct Glucometers Reviewed date:08/21/2024 11:22:42 AM Interpretation: Performing Lab:, [facility], [address] Notes/Report: Glucose Poc Glucometers 136 Random Glucose Reference Range is dependent on time and content of last meal. Glucose of more than 200 mg/dL in a nonstressed, ambulatory subject supports the diagnosis of Diabetes Mellitus. Glucose Poct Glucometers Reviewed date:08/21/2024 11:22:47 AM Interpretation: Performing Lab:, [facility], [address] Notes/Report:Glucose Poc Odxenagpoty87 Random Glucose Reference Range is dependent on time and content of last meal. Glucose of more than 200 mg/dL in a nonstressed, ambulatory subject supports the diagnosis of Diabetes Mellitus. HCG,Urine Reviewed date:08/21/2024 11:22:54 AM Interpretation: Performing Lab:, [facility], [address] Notes/Report:HCG Qualitative,UrineNegative Reason For Referral No Information Medications Medication SIG (Take, Route, Frequency, Duration) Notes Start Date End Date Status Rosuvastatin Calcium 10 MG Tablet TAKE 1 TABLET BY MOUTH EVERY DAY Oral; Duration: 30 ActiveActos 30 MG Tablet1 tablet Orally Once a dayActiveFLUoxetine HCl 60 MG Tablet1 tablet Orally Once a day; Duration: 30 daysActiveVyvanse 70 MG Capsule1 capsule in the morning Orally Once a day; Duration: 30 daysDNF until 01/30/2025 5ActiveCyclobenzaprine HClunknown dosageActiveVyvanse 70 MG Capsule1 capsule in the morning Orally Once a day; Duration: 30 days5Active LamISILunknown dosageActiveLinzess 290 MCG Capsule1 capsule at least 30 minutes before the first meal of the day on an empty stomach Orally Once a dayActive Docusate Sodium 100 MG Capsule3 capsules Orally Once a dayActivetraZODone HCl 50 MG Tablet1-2 tablet at bedtime as needed Orally daily; Duration: 30 daysActive Gabapentin 300 MG Capsule1 capsule Orally Three times a dayActivelamoTRIgine 200 MG Tablet1 tablet Orally Once a day; Duration: 30 daysActiveJardiance 25 MG Tablet1 tablet Orally Once a dayActiveLatuda 120 MG Tablet1 tablet in the evening with food Orally Once a day; Duration: 30 daysActivePepcid 40 MG Tablet1 tablet at bedtime Orally Once a dayActiveVyvanse 70 MG Capsule1 capsule in the morning Orally Once a day; Duration: 30 daysDNF until 515Active Victozaunknown dosageActive Social History Tobacco Use: Social History Observation Description Date Details (start date - stop date) Never Smoker NA - NA Social History GeneralSocial InfoQuestionAnswerNotesTransition of Care:ER/UC/hospital since last office visit?NoSubstance abuse/mental health issues of patient/family Patient -DeniesAbility to understand healthcare/treatmentPatient:Good Social/Support Concerns:Patient:NoBehaviors affecting healthPoor/Risky Behaviors:Denies-Communication Barrier:Language Barrier?:NoDrug/Alcohol:Social InfoQuestionAnswerNotesAUDIT-C (Standard)Did you have a drink containing alcohol in the past year?TpVygrvz8QetkcbpolevyleMzxbimrrBuwpsjc Use:Social InfoQuestion AnswerNotesTobacco Control (Standard)Tobacco use:Nonsmoker Problems Problem Type SNOMED Code ICD Code Onset Dates Problem Status W/U Status Risk Notes Problem Attention deficit hy peractivity disorder, combined type (66130956) ADHD (attention deficit hyperactivity disorder), combined type (F90.2) ActiveconfirmedProblemPosttraumatic stress disorder (97853183)PTSD (post- traumatic stress disorder) (F43.10)ActiveconfirmedProblemMixed bipolar affective disorder, moderate (385985302)Bipolar 1 disorder, mixed, moderate (F31.62)Active confirmed Vital Signs Height 63 in 03/28/2024 Aqgbdi877 lbs03/28/2024BMI38.97 kg/m203/28/2024 Encounters Encounter Location Date Provider Diagnosis [facility] [address] [place] [address] 03/07[facility]2024 [facility] [place] [address]/[facility] [place] [address]/[facility] [place] [address]/[facility] [place] [address] 07/19/2024[facility] [place] [address]/[facility], [facility], moderate F31.62[facility] [place] [address]/[facility] Calix Bipolar 1 disorder, mixed, moderate F31.62[facility] [place] [address]/22/2025Chinyere CalixADHD (attention deficit hyperactivity disorder), combined type F90.2 and Bipolar 1 disorder, mixed, moderate F31.62[facility] [place] [address] 01/12/2025Chinyere [facility] [place] [address] 06/13/2024Mary PetersBipolar 1 disorder, mixed, moderate F31.62 ; ADHD (attention deficit hyperactivity disorder), combined type F90.2 and PTSD (post- traumatic stress disorder) F43.10[facility] [place] [address]/Mary PetersBipolar 1 disorder, mixed, moderate F31.62 ; ADHD (attention deficit hyperactivity disorder), combined type F90.2 and PTSD (post-traumatic stress disorder) F43.10[facility] [address]rea[address] [place] [address]/Mary PetersBipolar 1 disorder, mixed, moderate F31.62 and ADHD (attention deficit hyperactivity disorder), combined type F90.2F[facility] [address] [place] [address] 03/28/2024Mary PetersBipolar 1 disorder, mixed, moderate F31.62 ; ADHD (attention deficit hyperactivity disorder), combined type F90.2 and PTSD (post- traumatic stress disorder) F43.10 Assessments Encounter Date Diagnosis (ICD Code) Assessment Notes Treatment Notes Treatment Clinical Notes Section Notes 06/13/2024 Bipolar 1 disorder, mixed, moder ate (ICD-10 - F31.62) . Informed consent obtained: [...] ideation, intent or plan in session. . 08/16/2024ipolar 1 disorder, mixed, moderate (ICD-10 - F31.62)08/16/2024ipolar 1 disorder, mixed, moderate (ICD-10 - F31.62)09/20/2024ipolar [...] ideation, intent or plan in session. . 12/21/2024DHD (attention deficit hyperactivity disorder), combined type (ICD-10 - F90.2)03/28/2024ipolar 1 disorder, mixed, moderate (ICD-10 - F31.62) [...] ideation, intent or plan in session. . 12/27/2024ipolar 1 disorder, mixed, moderate (ICD-10 - F31.62) coint current treatment no changes oarrs reviewed . . Informed consent obtained: YES, we [...] ideation, intent or plan in session. . 06/13/2024DHD (attention deficit hyperactivity disorder), combined type (ICD-10 - F90.2) . FDA approved stimulant medication for this age group. Discussed/Denies adverse effects from medication including HTN, tachycardia, insomnia, irritability, headache, or decreased appetite. . 12/21/2024ipolar 1 disorder, mixed, moderate (ICD-10 - F31.62)12/27/2024DHD (attention deficit hyperactivity disorder), combined type (ICD-10 - F90.2) . FDA approved stimulant medication for this age group. Discussed/Denies adverse effects from medication including HTN, tachycardia, insomnia, irritability, headache, or decreased appetite. . . High risk medications are drugs that have a heightened risk of causing significant patient harm when they are used in error. High risk medicines include medicines: with a low therapeutic index. that present a high risk when administered by the wrong route or when other system errors occur. Please notify provider for any concerns about your medications. . 09/20/2024DHD (attention deficit hyperactivity disorder), combined type (ICD-10 - F90.2) . OARRS reviewed . FDA approved stimulant medication for this age group. Discussed/Denies adverse effects from medication including HTN, tachycardia, insomnia, irritability, headache, or decreased appetite. . 03/28/2024DHD (attention deficit hyperactivity disorder), combined type (ICD-10 - F90.2) . OARRS reviewed cont vyvanse . FDA approved stimulant medication for this age group. Discussed/Denies adverse effects from medication including HTN, tachycardia, insomnia, irritability, headache, or decreased appetite. . 03/28/2024PTSD (post-traumatic stress disorder) (ICD-10 - F43.10)09/20/2024PTSD (post-traumatic stress disorder) (ICD-10 - F43.10)06/13/2024PTSD (post-traumatic stress disorder) (ICD-10 - F43.10) Plan Of Treatment Next Appt Details Provider Name:Chinyere Calix, 03/27/2025 03:30:00 PM, [address], [place], [address], Insurance Providers Payer Name Payer Address Payer Phone Subscriber Number Group Number Insured Name Patient Relationship to Insured Coverage Start Date Coverage End Date [employer] [place] [address] [place] [id number] Naomi WIHTEHEAD - patient is the [id number]-termed [address] [place] [address] [phone]-SHULL, HEATHERSelf - patient is the insured zPAMELA BHAKTA-termed [address] [place] [id number], HEATHERSelf - patient is the [id number] Medical (General) History Medical History History ICD Code bipolar PTSDADHDSurgical History Surgery Date(Month/Year) nasal surgery leg surgeryback surgeryankle surgeryHospitalization History Reason Date(Month/Year) Rotator cuff surgery 05/15/22
--- OUTSIDE RECORDS SUMMARY | 2025-02-11 11:18 | XMS_ITS | Encounter Summary ---
Author Organization [facility] Address [address] [place] [address] Care Team Providers Care Quality Control Microbiology Supervisor Name Role Phone Key Andrea DRAWER IN Unavailable Shawna Dudley DO Primary Care Provider [phone] Sasha Santos DO Unavailable [phone] Mendez Ortiz DO Unavailable [phone] Encounter Details DateTypeDepartmentCare Team (Latest Contact Info)Wwzjvubgarh33/04/2025Travel Social History Tobacco UseTypesPacks/DayYears UsedDateSmoking Tobacco: NeverSmokeless Tobacco: NeverAlcohol UseStandard Drinks/WeekCommentsNever0 (1 standard drink = 0.6 oz pure alcohol)CommentsNoSex and Gender InformationValueDate RecordedSex Assigned at BirthNot on fileLegal IcwVjnqbz88/15/2023 8:01 PM EDTGender Identity Not on fileSexual OrientationNot on filedocumented as of this encounter Plan of Treatment DateTypeDepartmentCare Team (Latest Contact Info)Smvwikxppqy97/05/2026 9:15 AM ESTOffice Visit [facility] [address] [place] [address] Archana Naylor, SEED PRODUCTION FIELD SUPERVISOR-OIL FILTERS INSPECTOR [address] [place] [address] 04/06/2025 10:40 AM ESTOffice Visit [facility] [address] [place] [address] Cleo Zambrano MD [address] [place] [address] 05/31/2025 1:00 PM EDTOffice Visit [facility] [address] [place] [address] Roel Garber DO [address] [place] [address] 08/18/2025 2:00 PM EDTOffice Visit [facility] [address] [place] [address] Mendez Ortiz DO [address] [place] [address] documented as of this encounter Visit Diagnoses Not on filedocumented in this encounter Care Teams Team MemberRelationshipSpecialtyStart DateEnd Date Shawna Dudley DO [address] [facility] [place] [address] PCP - GeneralFamily Medicine04/14/22 Key Andrea NP [address] [place] [address] Referring PhysicianFamily Medicine08/13/23 Sasha Santos DO [address] [place] [address] Referring PhysicianNeurology05/10/24 Mendez Ortiz DO [address] [place] [address] Otolaryngology08/19/24documented as of this encounter
--- OUTSIDE RECORDS SUMMARY | 2025-02-11 11:18 | XMS_ITS | Patient Health Record ---
Author Organization [employer] Address [address] [facility] [address], [place] [address] Care Team Providers Care Tension Worker Name Role Phone Adam Yung Unavailable [phone] Allergies Allergen (clinical drug ingredient) Drug/Non Drug [...] use. Encounters Encounter Location Date Provider Diagnosis [facility] [address] [address] 09/01/2024 Adam Yung Closed avulsion fracture of distal end of right fibula, initial encounter S82.831A ; Sprain of anterior talofibular ligament of left ankle, initial encounter S93.492A and Sprain of anterior talofibular ligament of right ankle, initial encounter S93.491A [employer] [address] [address] 09/29/2024 Adam Yung Sprain of anterior talofibular [...] End Date Medicaid [place] [address] [place] [address] [id number] Lyudmila Candelaria - patient is the insured Medical (General) History Medical History History ICD Code Arthritis AsthmaDepression/AnxietyAnemiaCervical CancerBipolarADHDType II DiabetesChronic Neck & Back PainOsteopeniaSurgical History Surgery Date(Month/Year) Right Shoulder Left FootGallbladderLower Back DiscSinustonsillectomy
--- OUTSIDE RECORDS SUMMARY | 2025-02-11 11:19 | XMS_ITS | Clinical Summary ---
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 Name Role Phone Key Andrea LIVE SOURCE OPERATOR Unavailable Shawna Dudley DO Primary Care Provider [phone] Sasha Santos DO Unavailable [phone] Mendez Ortiz DO Unavailable [phone] Allergies Active AllergyReactionsCriticalityNoted DateCommentsCephalexinHivesHigh 07/14/2013 Other Reaction(s): Other: See Comments, Unknown Shortness of breath, throat felt tight Other Reaction(s): Swelling of Lip/Tongue/Throat, hives Hmaqruxvsj72/15/2014 Other Reaction(s): Other: See Comments, Unknown palpitations Other Reaction(s): Palpitations, anaphylaxis ZuztnpcdcBtfw84/14/2023 Severe hypoglycemia Metformin And Duoijjo0804/20/2023 Other Reaction(s): Other (See Comments), Unknown Reaction Hypoglycemia Poison Devorah Qcscujf6404/15/20225597IlcljhqwphkJqbrkfr27/30/2025 Medications MedicationSigDispense QuantityRefillsLast FilledStart DateEnd DateStatus traMADol (Ultram) 50 MG tablet Take 50 mg by mouth Daily as rqgpgn0501/21/2023ctive traZODone (Desyrel) 50 MG tablet Take 50-100 [...] 2 diabetes mellitus without complication, unspecified whether oil heaterman insulin use ([facility])INJECT 2.5 MG SUBCUTANEOUSLY (UNDER THE SKIN) EVERY 7 DAYS 2 mL 5Active ferrous sulfate 28 MG tablet Indications:Other osteoporosis without current pathological fracture,Other iron deficiency anemiaTake 1 tablet (28 mg) by mouth in the morning. Take with meals. 30 tablet 1105Active Calcium Carbonate-Vit D-Min (Calcium 1200) 1463-9409 MG-UNIT chewable tablet Indications:Osteopenia, unspecified locationChew 1,200 mg Daily 90 tablet 509/6Active empagliflozin (Jardiance) 25 MG Indications:Type 2 diabetes mellitus with hyperglycemia, without long-term current use of insulin ([facility])Take 1 tablet (25 mg) by mouth Daily 30 tablet 5Active pioglitazone (Actos) 30 MG tablet Indications:Type 2 diabetes mellitus with hyperglycemia, without long-term current use of insulin ([facility])Take 1 tablet (30 mg) by mouth Daily 30 tablet 5Active semaglutide (Ozempic, 0.25 or 0.5 MG/DOSE,) 2 MG/1.5ML solution pen-injector Indications:Type 2 diabetes mellitus with hyperglycemia, without long-term current use of insulin (HCC)Inject 0.5 mg under the skin 1 (one) time per week 4.5 mL 503/ctive Active Problems ProblemNoted DateDiagnosed OtdcUlffyzmraqit64/02/2025Type 2 diabetes mellitus with hyperglycemia, without long-term current use of zfhigou2012/01/2024Other osteoporosis without current pathological brnojsxn98/03/2025Vitamin D deficiency, mnxlyhmczkx84/12/2024Hyperlipidemia, qyixaszuomr47/12/2024Well woman exam with routine gynecological exam05/25/20237395Eiylhy02/09/9380Grhqqu19/09/2024 Bilateral foot pain03/10/2023hronic yvydyhjh16/09/5379Jccqawxepfauyu24/09/2024 Ngqmdqb5103/10/2023rimary osteoarthritis, left ankle and foot4Recurrent fnulphsul73/09/2024Intervertebral disc stenosis of neural canal of cervical hqlmci763Axillary aktlqcipvbeuldv46/11/2021Disc displacement, lumbar 10/11/2018 Overview (03/10/2023): Added automatically from request for surgery [id number] Lumbosacral spondylosis without kfoleflsev23/23/2019 Overview (03/10/2023): Added automatically from request for surgery [id number] PTSD (post-traumatic stress disorder)06/16/2018Cervical disc displacement 09/21/2017Acute gyudqlydvxcwi75/17/2017 Resolved Problems ProblemNoted DateDiagnosed DateResolved DateBipolar 1 disorder, mixed, moderate Elevated liver function tests/Fatty liver /History of kidney tmwpvi56/18/2025Constipation Irritable bowel syndrome with wvvvwzrujiyi26/18/2025 08/17/2024Musculoskeletal chest painOther chronic pain Postoperative painReactive hypoglycemia ttention deficit hyperactivity dofmwkqz28 Circadian rhythm sleep disorder, shift work typeImpulse control osbjnzdm46Mixed bipolar affective disorder, moderate Type II diabetes mellitus with euyzyhlueycf66/12/2024 12/01/20248426Rstczxtxszf03Mass of upper outer quadrant of right mcstii02Symptomatic mammary ejhggojfrgs03Hot wygyxzu12Open wound of toe without xkaftherrknm13/09/2024 03/10/2023isorder of ytkcnm61Type 2 diabetes mellitus without xmezyajnomylb71Postoperative wkgzove01 Encounters DateTypeDepartmentCare CophYmyqmlymabz21/08/2025Telephone [facility] [address] [place] [address] [place] [address] Roel Garber DO 02/02/2025 1:40 PM ESTOffice Visit [facility] [place] [facility] [address] [place] [address] Archana Naylor, CASE PACKER AND SEALER-PAPER BAG INSPECTOR Tam angioma (Primary Dx); Neoplasm of skin; Inflamed seborrheic vateyamke06/04/2025amboo flowsheet [facility] [address] [place] [address] Archana Naylor, CASE PACKER AND SEALER-PAPER BAG INSPECTOR 02/02/20250341Jukjuk91/22/2025bstract [facility] [address] [facility] [place] [address] Alissa Atkins MA 12/08/2024Telephone [facility] [address] [place] [phone] Cleo Zambrano MD Med Obmkzw4412/01/2024 11:00 AM EDTOffice Visit [facility] [place] [facility] [address] [place] [phone] Cleo Zambrano MD Type 2 diabetes mellitus with hyperglycemia, without long-term current use of insulin (HCC) (Primary Dx); Vitamin D deficiency; Weight gain; Encounter for dietary consultation; Hyperlipemia, mixed; Diabetes mellitus with complication (HCC); Bkfydkrrusra55/02/2025Refill [facility] [place] [facility] [address] [place] [phone] Pilar Valdez LPN Type 2 diabetes mellitus with hyperglycemia, without long-term current use of insulin (HCC)12/01/2024amboo flowsheet [facility] [address] [place] [address] Cleo Zambrano MD 11/24/2024Telephone [facility] [address] [facility] [place] [phone] Roel Garber DO 11/21/2024Orders Only [facility] [place] [facility] [address] [place] [address] Cleo Zambrano MD Type 2 diabetes mellitus without complication, unspecified whether oil heaterman insulin use (HCC) (Primary Dx)11/16/2024Telephone [facility] [place] [facility] [address] [place] [phone] Cleo Zambrano MD Med Refillfrom Last 3 Months Immunizations ImmunizationAdministration DatesNext DueHep A / Hep B005/25/2023,12/22/2022, 06/23/2022Influenza Whole12/03/2012,12/29/2011,12/23/2010,12/18/2008Influenza, injectable, quadrivalent, preservative free12/23/2021,12/24/2020,12/19/2019, 12/19/2018,12/02/2017Influenza, live, /20/2014Influenza, recombinant, quadrivalent, injectable, preservative free12/22/2022Influenza, seasonal, injectable, preservative free12/07/2023,10/10/2016Pneumococcal Conjugate PCV 131Pneumococcal Conjugate PCV Td (adult), smrppemqcft64/04/5820Teeu83/04/2022 Family History Medical HistoryRelationNameCommentsMelanomaMotherRelationNameStatusComments DaughterAliveFatherDeceasedMotherAliveSon 1AliveSon 2AliveSon 3AliveSon 4Alive Social History Tobacco UseTypesPacks/DayYears UsedDateSmoking Tobacco: NeverSmokeless Tobacco: Never Tobacco Cessation:Counseling Given: Not Answered Alcohol UseStandard Drinks/WeekCommentsNever0 (1 standard drink = 0.6 oz pure alcohol)CommentsNoSex and Gender InformationValueDate RecordedSex Assigned at BirthNot on fileLegal DzrOpulys77/15/2023 8:01 PM EDTGender Identity Not on fileSexual OrientationNot on file Last Filed Vital Signs Vital SignReadingTime TakenCommentsBlood Bmnfteaz990/7212/01/2024 10:57 AM EDT Ekyqd95064/02/2025 10:57 AM EDTTemperature--Respiratory Lzrh0923 10:57 AM EDTOxygen Apozetazdc24%12/01/2024 10:57 AM EDTInhaled Oxygen Concentration-- Ewgixs211 kg (227 lb)12/01/2024 10:57 AM YUPLpsxtg109 cm (5' 3 )12/01/2024 10:57 AM EDTBody Mass Index40.211 10:57 AM EDT Plan of Treatment DateTypeDepartmentCare Team (Latest Contact Info)Fpxsiofcqur11/05/2026 9:15 AM ESTOffice Visit [facility] [address] [place] [phone] Archana Naylor APRN-PAPER BAG INSPECTOR [address] [place] [address] 04/06/2025 10:40 AM ESTOffice Visit [facility] [address] [place] [address] Cleo Zambrano MD [address] [place], [place] [phone] 05/31/2025 1:00 PM EDTOffice Visit [facility] [address] [facility] [phone] Roel Garber DO [address] [facility] [place] [address] 08/18/2025 2:00 PM EDTOffice Visit [facility] [address] [place] [address] Mendez Ortiz DO [address] [place] [address] Health MaintenanceDue DateLast DoneCommentsCOVID-19 Vaccine ( season) 512/10/2021, 12/26/2020, 06/09/2020, Additional history existsMammogram /, 03/16/2023, 11/07/2021, Additional history existsPap Smear /, 05/19/2022ervical Cancer Dfxlfbjwe79/20/2028HPV/Cotest 05/20/2027Pneumococcal Vaccine: Pediatrics (0 to 5 Years) and At-Risk Patients (6 to 64 Years)Aged Out02/07/2022, 12/02/2017No longer eligible based on patient's age to complete this topicInfluenza GlfolhsIotqvpuiz16/22/2025, 12/07/2023, 12/22/2022, Additional history exists Procedures Procedure NamePriorityDate/TimeAssociated DiagnosisCommentsCRYOTHERAPY SKIN NPCUYXPtemzee00/04/2025 2:00 PM EST Inflamed seborrheic keratosis POCT GLYCOSYLATED HEMOGLOBIN (HGB A1C)Otdjnhs2812/01/2024 12:15 PM EDT Type 2 diabetes mellitus with hyperglycemia, without long-term current use of insulin (HCC) POCT YFXKDUMTstukvv75/02/2025 12:12 PM EDT Type 2 diabetes mellitus with hyperglycemia, without long-term current use of insulin (HCC) MM TOMOSYNTHESIS SCREENING BI05/27/2024 4:48 PM EDT PAP DUEXQDkbpqrn03/25/2024 12:00 AM EDTfrom Last 3 Months or Most Recently Relevant to Health Maintenance Results * Cryotherapy, skin lesion (02/02/2025 2:00 PM EST) Narrative Authorizing ProviderResult TypeResult StatusNatalikaty Naylor CASE PACKER AND SEALER-CNPDERM PROCEDURE ORDERABLESFinal Result * POCT glycosylated hemoglobin (Hb A1C) docked device (12/01/2024 12:15 PM EDT) ComponentValueRef RangeTest MethodAnalysis TimePerformed AtPathologist SignatureHemoglobin A1C5.9Specimen (Source)Anatomical Location / Laterality Collection Method / VolumeCollection TimeReceived TimeBloodVenous blood specimen / Eiscfby6512/01/2024 12:15 PM EDT Narrative Authorizing ProviderResult TypeResult StatusCleo Zambrano MDPOINT OF CARE TEST ENTER/EDIT ORDERABLESFinal Result * (ABNORMAL) POCT glucose manually resulted (12/01/2024 12:12 PM EDT)Component ValueRef RangeTest MethodAnalysis TimePerformed AtPathologist SignatureGlucose Blood, NZZ986cy/dLSpecimen (Source)Anatomical Location / LateralityCollection Method / VolumeCollection TimeReceived TimeBloodCapillary blood specimen / Iarfday5412/01/2024 12:12 PM EDT Narrative Authorizing ProviderResult TypeResult StatusAhleonardo Zambrano MDPOINT OF CARE TEST ENTER/EDIT ORDERABLESFinal Result * MM TOMOSYNTHESIS SCREENING BI (05/27/2024 4:48 PM EDT)Anatomical Region LateralityModalityOtherSpecimen (Source)Anatomical Location / Laterality Collection Method / VolumeCollection TimeReceived Time05/27/2024 4:48 PM EDT Narrative 05/27/2024 4:49 PM EDT [facility] ?[address] ? [place] [address] ? Mammography Report ? Signed ? Patient: PEE WHITEHEAD ?MR#: [id number] ?? : 1980 ?Acct:[id number] ?? Age/Sex: 43 / F ?ADM Date: 05/27/ ?? Loc: MAMMO ? Attending Dr: Roel Garber D.O. ? Ordering Physician: Roel Garber D.O. ?Results: ? Date of Service: 05/27/ ?Follow Up: ? Procedure(s): MM tomosynthesis screening BI ?? Accession Number(s): [id number] ? cc: Roel Garber D.O.; Loreto Mcneal LIVE SOURCE OPERATOR ? Patient Name: ? PEE WHITEHEAD ? MR#: [id number] ? : 1980 ? Exam Date: 05/27/2024 [...] Cancers ? None ? LOCATION: ? [facility] ? BREAST COMPOSITION: ? There are scattered [...] By: ?Mio Serra D.O. ? Signed By: ?05/27/249 ? DD/ ? TD/TT: ? Card Grinder Helper: Procedure Note Radiology, Radiologist, MD - 05/27/[address] [address] Mammography Report Signed Patient: PEE WHITEHEAD AMR#: [id number] : 1980Acct:[id number] Age/Sex: 43 / FADM Date: 05/27/24 Loc: MAMMO Attending Dr: Roel Garber D.O. Ordering Physician: Roel Garber D.O.Results: Date of Service: 05/27/24Follow Up: Procedure(s): MM tomosynthesis screening BI Accession Number(s): [id number] cc: Roel Garber D.O.; Loreto Mcneal NP Patient Name: PEE WHITEHEAD MR#: [id number] : 1980 Exam Date: 05/27/2024 Ordering Doctor: DR Roel Garber . RADIOLOGY REPORT PROCEDURE: MM TOMOSYNTHESIS SCREENING BI COMPARISON: MM DIAGNOSTIC MAMMO UNILAT RT, 03/25/2023. MG MAMM GCWHJA9L STELLA CAD, 03/16/2023. MM TOMOSYNTHESIS SCREENING BI, 11/07/2021. MM TOMOSYNTHESIS DIAGNOSTIC BI, 11/06/2020. INDICATIONS: Screening Calculator Name NCI Breast Cancer Risk Assessment Tool 5 Year Breast Cancer Risk Not Reported. Lifetime Breast Cancer Risk Not Reported. Personal Breast Cancer No Personal Ovarian Cancer No Treatments None Family Cancers None LOCATION: [facility] BREAST COMPOSITION: There are scattered areas of [...] Mio Serra D.O. Signed By:05/27/24 1649 DD/ 47 TD/TT: Card Grinder Helper: Authorizing ProviderResult TypeResult StatusCorey Shirlene DOCLINISYNC IMAGINGFinal [...] DateEnd Date Shawna Dudley DO [address] [place], [place] [id number] PCP - GeneralFamily Medicine04/14/22 Key Andrea NP [address] [place] [address] Referring PhysicianFamily Medicine08/13/23 Sasha Santos DO [address] [place] [address] Referring PhysicianNeurology05/10/24 Mendez Ortiz DO [address] [place] [address] Otolaryngology08/19/24
--- OUTSIDE RECORDS SUMMARY | 2025-02-11 11:19 | XMS_ITS | Clinical Summary ---
Author Organization [facility] Address [address], [address] [place] [address] Care Team Providers Care Weave Room Supervisor Name Role Phone Loreto Mcneal APRN, NP Primary Care Prov ider Allergies Active AllergyReactionsCriticalityNoted WjsjWrlmmnenRpoknkxgokRuazf01/15/2017 PfqdsekhznCnlvd13/15/2017Metformin And RelatedOther (See Comments)04/20/2023 Hypoglycemia Uyhnbmbbkne44/30/2025 Medications MedicationSigDispense QuantityRefillsLast FilledStart DateEnd DateStatus ferrous sulfate 325 (65 Fe) MG tablet Take 1 tablet by mouth daily (with breakfast)Active fluticasone (FLONASE) 50 MCG/ACT nasal spray 1 spray by Nasal route dailyActive FLUoxetine (PROZAC) 20 MG capsule Take 3 capsules by mouth dailyActive temazepam (RESTORIL) 15 MG capsule Take 15 mg by mouth nightly as needed for SleepActive albuterol sulfate HFA 108 (90 Base) MCG/ACT inhaler Inhale 2 puffs into the lungs every 4 hours as needed for WheezingActive zonisamide (ZONEGRAN) 100 MG capsule Take 1 capsule by mouth dailyActive topiramate (TOPAMAX) 200 MG tablet Take 1 tablet by mouth dailyActive naproxen (NAPROSYN) 500 MG tablet Take 1 tablet by mouth as needed for PainActive ibuprofen (ADVIL;MOTRIN) 600 MG tablet Take 1 tablet by mouth 4 times daily as needed for Pain 30 tablet 101/19/2019Active gabapentin (NEURONTIN) 100 MG capsule Take 3 capsules by mouth 3 times daily.Active naproxen (NAPROSYN) 500 MG tablet Take 1 tablet by mouth 2 times daily (with meals) for 5 days 10 tablet 10/05/2023ctive linaclotide (LINZESS) 290 MCG CAPS capsule Take 1 capsule by mouth every morning (before breakfast)Active empagliflozin (JARDIANCE) 25 MG tablet Take 1 tablet by mouth dailyActive probiotic (ALIGN/RISAQUAD) CAPS capsule Take 1 [...] tablet Take 1 tablet by mouth nightlyActive lisdexamfetamine (VYVANSE) 70 MG capsule Take 1 [...] mouth every 6 hours 30 tablet 5Active B Complex Vitamins (VITAMIN B COMPLEX PO) Take 1 tablet by mouth daily5Active Active Problems ProblemNoted DateDiagnosed DateUreteral stone with znehpagcsebanh01/16/2025 Encounters DateTypeDepartmentCare IebiEhduigjyitq97/30/2025 11:00 AM EDTOffice Visit [facility] UROLOGY Part of [address] [address] Yudi Gomez APRN - CLOTH PRINTER Stress incontinence (Primary Dx); Renal calculus; Gross hematuria; Ureteral stone12/27/2024Results Follow-Up [facility] UROLOGY [address] [place] [address] Georges Valencia PA-C 12/22/2024 12:08 PM EDT - 12/24/2024 11:59 PM EDTHospital Encounter [facility] Radiology [address] [place], [place] [phone] Renal calculus Discharge Disposition: Home or Self Care11/18/2024 9:00 AM EDTOffice Visit [facility] UROLOGY [address] [place] [address] Karen Cotter APRN - HILARY Renal calculus (Primary Dx)11/17/2024 9:00 PM EDT - 11/17/2024 11:38 PM EDT Emergency [facility] Emergency Department [address] [place], [place] [phone] Benja Echavarria MD Flank pain (Primary Dx); Right lower quadrant abdominal pain Discharge Disposition: Home or Self Care11/17/20242747Aojgkr17/17/2025Results Follow-Up [address] [place] [address] Yudi Gomez APRN - HILARY 11/15/2024 4:57 PM EDT - 11/15/2024 6:02 PM EDTSurgery [facility] OR [address] [place] [address] Faheem Stovall MD CYSTOSCOPY URETEROSCOPY LASER-right ureteroscopy/thulium laser lithotripsy with right ureteral stent placement/gdcvgwxi78/16/2025 4:38 PM EDTAnesthesia Event [facility] OR [address] [place] [address] Chepe Rodriguez APRN - SORAYA 11/15/2024 2:41 PM EDT - 11/15/2024 6:36 PM EDTHospital Encounter [facility] OR [address] [place] [address] Faheem Stovall MD Ureteral stone with hydronephrosis Discharge Disposition: Home or Self Care11/15/2024 11:00 AM EDT - 11/15/2024 2:40 PM EDTHospital Encounter [facility] EKG [address] [place] [address] Pre-op testing Discharge Disposition: Home or Self Care11/15/2024 10:15 AM EDTOffice Visit [facility] UROLOGY [address] [place] [address] Karen Cotter APRN - CNP Ureteral stone with hydronephrosis (Primary Dx); Pre-op xbaotgw2811/15/20245336Isrorr83/16/2025Orders Only [address] [place] [address] Faheem Stovall MD Ureteral stone with qlzytvwaytoyiu14/16/2025Results Follow-Up [facility] [place] [address] Georges Valencia PA-C Vzqqawo2411/14/2024 6:00 PM EDT - 11/16/2024 11:59 PM EDTHospital Encounter [facility] CT Scan [address] [place] [address] Gross hematuria; Renal colic Discharge Disposition: Home or Self Care11/14/2024 5:59 PM EDTHospital Encounter [facility] LAB [address] [place] [address] Gross hematuria; Renal colic Discharge Disposition: Home or Self Care11/14/2024Telephone [address] [place] [address] Karen Cotter APRN - CLOTH PRINTER OTHERfrom Last 3 Months Social History Tobacco UseTypesPacks/DayYears [...] Safety Domain Source: IP Abuse ScreeningAnswerDate RecordedPhysical cnsryNepdtj60/18/2025Verbal abuse Cgoojt8711/17/2024Emotional ypegzLwtadi07/18/2025Financial odghsYpemio00/18/2025 Sexual nsfhfZszksa18/18/2025CommentsNoSex and Gender InformationValue Date RecordedSex Assigned at BirthNot on fileLegal KcpOofpig60/10/2013 2:04 PM ESTGender IdentityNot on fileSexual OrientationNot on file Last Filed Vital Signs Vital SignReadingTime TakenCommentsBlood Yrlnwrtz566/8110 11:29 AM EDT Jdqnt7087 11:29 AM LDXAloxbxpuhyz15.3 ??C (97.3 ??F)12/29/2024 11:29 AM EDTRespiratory Zkka913711/17/2024 11:27 PM EDTOxygen Yajzjoknpv15%11/17/2024 11:29 PM EDTInhaled Oxygen Concentration--Fytpft409.4 kg (228 lb)12/29/2024 11:29 AM FYRCgewfw048 cm (5' 3 )11/17/2024 8:58 PM EDTBody Mass Index40.39011/17/2024 8:58 PM EDT Plan of Treatment DateTypeDepartmentCare Team (Latest Contact Info)Ggpmleptpwp83/29/2026 10:30 AM EDTOffice Visit [facility] UROLOGY Part of [address] [place] [phone] Yudi Gomez, HORSE BREEDER - CLOTH PRINTER [address] [place] [address] 1Y KUBHealth MaintenanceDue DateLast DaecBnqfsykmGaxlzx51/26/1991Depression Uezbwt9109/24/1992Varicella vaccine (1 of 2 - 13+ 2-dose series)1993HIV uzpnze8909/25/1995Hepatitis C awzmem3009/24/1998Pap smear2001Cervical cancer aqckud7509/24/2010HPV (without or with Pap)2010Diabetes cnwyfe1609/25/2015Flu vaccine (#1)510/08/2023, 12/22/2022, 12/23/2021, Additional history existsBreast cancer kxavnd43601/, 2DTaP/Tdap/Td vaccine (2 - Td or Tdap)/05/2021, 2Pneumococcal 0-49 years Vaccine Aged Out02/07/2022, 12/02/2017No longer eligible based on patient's age to complete this topicHepatitis A vaccineAged Out05/25/2023, 12/22/2022, 06/23/2022 No longer eligible based on patient's age to complete this topicHepatitis B zlezbiyGndybrcxy22/25/2024, 12/22/2022, 3COVID-19 VaccineCompleted 12/07/2023, 12/22/2022, 02/07/2022HPV vaccine (No Doses Required)CompletedHib vaccineAged OutNo longer eligible based on patient's age to complete this topic Meningococcal (ACWY) vaccineAged OutNo longer eligible based on patient's age to complete this topicMeningococcal B vaccineAged OutNo longer eligible based on patient's age to complete this topicPolio vaccineAged OutNo longer eligible based on patient's age to complete this topic Medical Devices ImplantedTypeAreaManufacturerDevice IdentifierShelf Expiration DateModel / Serial / LotStent Uret 6fr L24cm Hydr+ Grad Circumferential Mrk Renetta Prof - [id number] Implanted:Qty: 1 on 11/15/2024 by [facility] UreterBOSTON SCI UROLOGY-WD04/12/[id number] / / [id number] Procedures Procedure NamePriorityDate/TimeAssociated DiagnosisCommentsXR ABDOMEN (KUB) (SINGLE AP VIEW)Ivxdurc9712/22/2024 12:27 PM EDT Renal calculus CT ABDOMEN PELVIS W IV VEZCXEXTAMGH06/18/2025 10:05 PM EDT XR WRIST RIGHT (MIN 3 VIEWS)STAT11/17/2024 10:02 PM EDT MICROSCOPIC TOLFPEVMDIGtibnwr80/18/2025 9:50 PM EDT , XGNZLCFKE79/18/2025 9:50 PM EDT ZVDBGGIYDLFZYI58/18/2025 9:50 PM EDT LIPASEAdd-On11/17/2024 9:35 PM EDT HEPATIC FUNCTION PANELAdd-On11/17/2024 9:35 PM EDT BASIC METABOLIC MLRTEUOUS88/18/2025 9:35 PM EDT CBC WITH AUTO GFCBVFBRWWOWMIJJ05/18/2025 9:35 PM EDT FLUORO FOR SURGICAL XQMUPUUQMYOutfgeo17/16/2025 5:32 PM EDT GLUCOSE, WHOLE ZQDYPIykgnub46/16/2025 5:29 PM EDT STONE EKZAJOLRPngafpw97/16/2025 5:05 PM EDT Ureteral stone with hydronephrosis WI CYSTO/URETERO W/LITHOTRIPSY &INDWELL STENT INSRT11/15/2024 4:30 PM EDT Ureteral stone with hydronephrosis Special Needs pre op ekg ordered/ will arrive at 3pm per Kerline Smiley RN. also reviewed NPO [facility] #[id number]-eay Bi GLUCOSE, WHOLE ZHGKUAblkpyu20/16/2025 3:12 PM EDT EKG 12-WBKILibktat27/16/2025 11:10 AM EDT Pre-op testing URINALYSIS WITH FGLFAIRDLSGJnwbeje35/15/2025 6:50 PM EDT Gross hematuria BASIC METABOLIC ZQVLMOncguny84/15/2025 6:50 PM EDT Gross hematuria Renal colic CBC WITH AUTO RQNWUAEPLTXMRihoqcv02/15/2025 6:50 PM EDT Gross hematuria Renal colic CULTURE, UBLJWPpwddbx35/15/2025 6:50 PM EDT Gross hematuria CT ABDOMEN PELVIS WO EDUEKLAAOFIS64/15/2025 6:22 PM EDT Gross hematuria Renal colic from Last 3 Months Results * XR [...] 1. No acute findings. Authorizing ProviderResult TypeResult StatusBethcape fear [facility] W Cyndee HORSE BREEDER - CNPIMG DIAGNOSTIC IMAGING ORDERABLESFinal Result * [...] no hydronephrosis. Contrast Dosage Authorizing ProviderResult TypeResult StatusBenja Echavarria MDBAILEY [facility] [place] [place] ORDERABLESFinal Result * XR WRIST RIGHT [...] joint and diffuse osteopenia. Authorizing ProviderResult TypeResult Pinky PAVON DIAGNOSTIC IMAGING ORDERABLESFinal Result * (ABNORMAL) Microscopic Urinalysis (11/17/2024 9:50 PM EDT)ComponentValueRef RangeTest MethodAnalysis TimePerformed AtPathologist SignatureWBC, UA5 TO 100 - 5 /HPF11/17/2024 9:50 PM [facility] LABRBC, UAGREATER THAN 1000 - 2 /HPF11/17/2024 9:50 PM [facility] Epithelial Cells, UA0 TO 20 - 25 /HPF11/17/2024 9:50 PM [facility] LABBacteria, UA3+(A)None11/17/2024 9:50 PM [facility] LABSpecimen (Source)Anatomical Location / LateralityCollection Method / VolumeCollection TimeReceived Time11/17/2024 9:50 PM EDT11/17/2024 10:40 PM EDT Narrative Authorizing ProviderResult TypeResult Pinky GRIDER ORDERABLESFinal ResultPerforming OrganizationAddressCity/State/ZIP CodePhone Number [facility] [address] [place] [address], [facility] [phone] * Urine Preg (Lab) (11/17/2024 9:50 PM EDT)ComponentValueRef RangeTest Method Analysis TimePerformed AtPathologist SignaturePregnancy, UrineNEGATIVENEGATIVE 11/17/2024 9:50 PM [facility] LABComment: Specimens with hCG levels near the [...] StatusBenja GRIDER ORDERABLESFinal ResultPerforming OrganizationAddressCity/State/ZIP CodePhone Number [facility] [address] [place] [id number], [facility] [phone] * (ABNORMAL) Urinalysis (11/17/2024 9:50 PM EDT)ComponentValueRef RangeTest MethodAnalysis TimePerformed AtPathologist SignatureColor, UARed(A)Yellow 11/17/2024 9:50 PM [facility] LABTurbidity UACloudy(A) Clear11/17/2024 9:50 PM [facility] LABGlucose, Ur3+(A) NEGATIVE mg/dL11/17/2024 9:50 PM [facility] LABBilirubin, TulouATBXXACUGBWIPNLZ11/18/2025 9:50 PM [facility] Ketones, UrineTRACE(A)NEGATIVE mg/dL11/17/2024 9:50 PM [facility] LABSpecific Jewett, UA1.0201.010 - 1.4380811/17/2024 9:50 PM [facility] LABUrine Hgb3+(A)EXEVPBHD90/18/2025 9:50 PM [facility] LABpH, Urine5.55.0 - 9.009 9:50 PM [facility] LABProtein, UA2+(A)NEGATIVE mg/dL11/17/2024 9:50 PM EDT [facility] LABUrobilinogen, UrineNormal0.0 - 1.0 EU/dL 11/17/2024 9:50 PM [facility] LABNitrite, UrinePOSITIVE (A)MONARGGT45/18/2025 9:50 PM [facility] LABLeukocyte Esterase, UrineSMALL(A)CFKBKVOO85/18/2025 9:50 PM [facility] LABCommentResults may be affected due to urine color interference. 11/17/2024 9:50 PM [facility] LABSpecimen (Source) Anatomical Location / LateralityCollection Method / VolumeCollection Time Received TimeUrineURINE SPECIMEN / Colkath2611/17/2024 9:50 PM EDT11/17/2024 10:40 PM EDT Narrative Authorizing ProviderResult TypeResult StatusBenja GRIDER ORDERABLESFinal ResultPerforming OrganizationAddressCity/State/ZIP CodePhone Number [facility] [address] [phone] * (ABNORMAL) CBC with Auto Differential (11/17/2024 9:35 PM EDT) Only the most recent of2 resultswithin the time period is included. ComponentValueRef RangeTest MethodAnalysis TimePerformed AtPathologist Signature WBC14.1(H)3.5 - 11.3 k/uL11/17/2024 9:35 PM [facility] RBC4.463.95 - 5.11 m/11/17/2024 9:35 PM [facility] Kyfozyqjvq26.711.9 - 15.1 g/dL11/17/2024 9:35 PM [facility] BCPUvpotxhvjo77.836.3 - 47.1 %11/17/2024 9:35 PM [facility] HVKHQN65.082.6 - 102.9 fL11/17/2024 9:35 PM [facility] MCH28.525.2 - 33.5 pg11/17/2024 9:35 PM [facility] LABMCHC 32.728.4 - 34.8 g/dL11/17/2024 9:35 PM [facility] LABRDW 15.0(H)11.8 - 14.4 %11/17/2024 9:35 PM [facility] Zlselhros161326 - 453 k/uL11/17/2024 9:35 PM [facility] MPV10.38.1 - 13.5 fL11/17/2024 9:35 PM [facility] LABNRBC Automated0.00.0 per 100 WBC11/17/2024 9:35 PM [facility] LABNeutrophils %66(H)36 - 65 %11/17/2024 9:35 PM [facility] LABLymphocytes %2424 - 43 %11/17/2024 9:35 PM [facility] LABMonocytes %53 - 12 %11/17/2024 9:35 PM [facility] Eosinophils %31 - 4 %11/17/2024 9:35 PM [facility] Basophils %10 - 2 %11/17/2024 9:35 PM [facility] Immature Granulocytes %1(H)0 %11/17/2024 9:35 PM [facility] LABNeutrophils Absolute9.43(H)1.50 - 8.10 k/uL11/17/2024 9:35 PM [facility] LABLymphocytes Absolute3.361.10 - 3.70 k/11/17/2024 9:35 PM [facility] LABMonocytes Absolute0.690.10 - 1.20 k/uL 11/17/2024 9:35 PM [facility] LABEosinophils Absolute0.38 0.00 - 0.44 k/11/17/2024 9:35 PM [facility] LABBasophils Absolute0.070.00 - 0.20 k/11/17/2024 9:35 PM [facility] LABImmature Granulocytes Absolute0.130.00 - 0.30 k/11/17/2024 9:35 PM [facility] LABSpecimen (Source)Anatomical Location / Laterality Collection Method / VolumeCollection TimeReceived TimeBloodBLOOD SPECIMEN / Nuwsdcq5611/17/2024 9:35 PM EDT11/17/2024 9:38 PM EDT Narrative Authorizing ProviderResult TypeResult Pinky Echavarria MDHEMATOLOGY ORDERABLES Final ResultPerforming OrganizationAddressCity/State/ZIP CodePhone Number [facility] [address] [place] [address] * Lipase (11/17/2024 9:35 PM EDT)ComponentValueRef RangeTest MethodAnalysis Time Performed AtPathologist DvbhgvlnpZtgzqu6678 - 60 U/L11/17/2024 9:35 PM EDT [facility] LABSpecimen (Source)Anatomical Location / LateralityCollection Method / VolumeCollection TimeReceived TimeBloodBLOOD SPECIMEN / Jxtarff7211/17/2024 9:35 PM EDT11/17/2024 11:12 PM EDT Narrative Authorizing ProviderResult TypeResult Pinky Echavarria MDCHEMISTRY ORDERABLES Final ResultPerforming OrganizationAddressCity/State/ZIP CodePhone Number [facility] [address] [place] [address] * (ABNORMAL) Hepatic Function Panel (11/17/2024 9:35 PM EDT)ComponentValueRef RangeTest MethodAnalysis TimePerformed AtPathologist SignatureAlbumin3.93.5 - 5.2 g/dL11/17/2024 9:35 PM [facility] LABAlkaline Nopgxpeaxcc51175 - 104 U/L11/17/2024 9:35 PM [facility] AXALJH78(H)10 - 35 U/L11/17/2024 9:35 PM [facility] KST1550 - 35 U/L11/17/2024 9:35 PM [facility] LABTotal Bilirubin<0.20.00 - 1.20 mg/dL11/17/2024 9:35 PM [facility] LABBilirubin, Direct<0.20.00 - 0.30 mg/dL11/17/2024 9:35 PM [facility] LABBilirubin, IndirectCan not be calculated0.0 - 1.0 mg/dL11/17/2024 9:35 PM [facility] LABTotal Protein6.96.6 - 8.7 g/dL11/17/2024 9:35 PM [facility] Albumin/Globulin Ratio1.31.0 - 2.509 9:35 PM [facility] LABSpecimen (Source)Anatomical Location / LateralityCollection Method / VolumeCollection TimeReceived TimeBloodBLOOD SPECIMEN / Bkudugv0811/17/2024 9:35 PM EDT11/17/2024 11:12 PM EDT Narrative Authorizing ProviderResult TypeResult StatusBenja Echavarria MDCHEMISTRY ORDERABLES Final ResultPerforming OrganizationAddressCity/State/ZIP CodePhone Number [facility] [address] [phone] * (ABNORMAL) BMP (11/17/2024 9:35 PM EDT) Only the most recent of2 resultswithin the time period is included. ComponentValueRef RangeTest MethodAnalysis TimePerformed AtPathologist Signature Aobygn413064 - 145 mmol/L11/17/2024 9:35 PM [facility] Potassium3.73.7 - 5.3 mmol/L11/17/2024 9:35 PM [facility] WEANhoqrnsf76001 - 107 mmol/L11/17/2024 9:35 PM [facility] WOHHC08156 - 31 mmol/L11/17/2024 9:35 PM [facility] Anion Luo137 - 16 mmol/L11/17/2024 9:35 PM [facility] Loajfta144(H)74 - 99 mg/dL11/17/2024 9:35 PM [facility] UKV097 - 20 mg/dL11/17/2024 9:35 PM [facility] Creatinine0.70.50 - 0.90 mg/dL11/17/2024 9:35 PM [facility] LABEst, Glom Filt Rate>90>60 mL/min/1.43l20811/17/2024 9:35 PM [facility] LABComment: ? These results are not intended [...] renal tubular secretion. BUN/Creatinine Ratio21(H) 9:35 PM [facility] LABCalcium8.88.6 - 10.4 mg/dL11/17/2024 9:35 PM [facility] LABSpecimen (Source)Anatomical Location / LateralityCollection Method / VolumeCollection TimeReceived TimeBloodBLOOD SPECIMEN / Qmitbtj6411/17/2024 9:35 PM EDT11/17/2024 9:38 PM EDT Narrative Authorizing ProviderResult TypeResult StatusBenja Echavarria MDCHEMISTRY ORDERABLES Final ResultPerforming OrganizationAddressCity/State/ZIP CodePhone Number [facility] [address] [phone] * FLUORO FOR SURGICAL PROCEDURES (11/15/2024 5:32 PM EDT)Specimen (Source) Anatomical Location / LateralityCollection Method / VolumeCollection Time Received Time Narrative [facility] CONSOLIDATED - 11/15/2024 5:32 PM EDT Radiology exam is complete. No Radiologist dictation. Please follow up with ordering provider. Authorizing ProviderResult TypeResult StatusFaheem Stovall MDIMG FLUOROSCOPY ORDERABLESFinal ResultPerforming OrganizationAddressCity/State/ZIP CodePhone Number [facility] CONSOLIDATED * Glucose, Whole Blood (11/15/2024 5:29 PM EDT) Only the most recent of2 resultswithin the time period is included. ComponentValueRef RangeTest MethodAnalysis TimePerformed AtPathologist Signature POC Zvxxaef5197 - 100 mg/dL11/15/2024 5:29 PM [facility] LABSpecimen (Source)Anatomical Location / LateralityCollection Method / Volume Collection TimeReceived Time11/15/2024 5:29 PM EDT11/15/2024 5:36 PM EDT Narrative Authorizing ProviderResult TypeResult StatusThaugusto Sia MDCHEMISTRY ORDERABLESFinal ResultPerforming OrganizationAddressCity/State/ZIP CodePhone Number [facility] [address] [phone] * Stone Analysis (11/15/2024 5:05 PM EDT)ComponentValueRef [...] composition determined by FTIR analysis. Performed By: [facility] [address] [place] [address] Personnel Associate: Tony Rodrigez MD, PhD CLIA Number: [id number] Stone Uvuv52je26/16/2025 5:05 PM EDTARUP LABORATORYStone DescriptionSee Note 11/15/2024 5:05 PM EDTARUP LABORATORYComment: (NOTE) Specimen consists of one brown and gonzalez calculus. The total weight is 21 mg. Specimen (Source)Anatomical Location / LateralityCollection Method / Volume Collection TimeReceived TimeStone (Calculus)URETHRAL SWAB / Msmkujx0311/15/2024 5:05 PM EDTComment:Pre-op diagnosis: Ureteral stone with hydronephrosis [N13.2] Narrative Authorizing ProviderResult TypeResult StatusThaugusto Sia MDMICROBIOLOGY - GENERAL ORDERABLESFinal ResultPerforming OrganizationAddressCity/State/ZIP Code Phone Number [facility] [address] [place] [address], [facility] [phone] [facility] [address] [phone] * EKG 12 Lead (11/15/2024 11:10 AM EDT)ComponentValueRef RangeTest Method Analysis TimePerformed AtPathologist SignatureVentricular Zyth99OGBVWKK [facility] RADIOLOGYAtrial Cdus80UYTGAZF [facility] RADIOLOGYP-R Waqjryww921imZMVM [facility] RADIOLOGY QRS Wuzosyoy60ovXRYV [facility] RADIOLOGYQ-T Plmnjghy162dzRHKL [facility] RADIOLOGYQTc Calculation (Bazett)435msMHPN [facility] RADIOLOGYP Lmrv53fgcvxjxXSFK [facility] RADIOLOGYR Tvxx68mmdwbifWPZJ [facility] RADIOLOGYT Qydh90lyjjdeoBFXI [facility] RADIOLOGYSpecimen (Source)Anatomical Location / LateralityCollection Method / VolumeCollection TimeReceived Time11/15/2024 11:10 AM EDT Narrative [facility] RADIOLOGY - 11/15/2024 11:10 PM EDT Normal [...] Baltazar Keith ([id number]) on 11/15/2024 11:10:53 PM Authorizing ProviderResult TypeResult StatusBethnithya Cotter HORSE BREEDER - CNPECG ORDERABLESFinal ResultPerforming OrganizationAddressCity/State/ZIP CodePhone Number [facility] RADIOLOGY * (ABNORMAL) Urinalysis with Microscopic (11/14/2024 6:50 PM EDT)ComponentValue Ref RangeTest MethodAnalysis TimePerformed AtPathologist SignatureColor, UA BnrzzsCqpfhf32/15/2025 6:50 PM [facility] LABTurbidity UA Turbid(A)Clear11/14/2024 6:50 PM [facility] LABGlucose, Ur3+(A)NEGATIVE mg/dL11/14/2024 6:50 PM [facility] Bilirubin, WtsrsSFFVMXBJTQMWEUUE46/15/2025 6:50 PM [facility] LABKetones, UrineTRACE(A)NEGATIVE mg/dL11/14/2024 6:50 PM [facility] LABSpecific Jewett, UA1.0101.010 - 1.9027511/14/2024 6:50 PM [facility] LABUrine Hgb3+(A)UZTPGGPU12/15/2025 6:50 PM [facility] LABpH, Urine6.55.0 - 9.009/ 6:50 PM [facility] LABProtein, UA1+(A)NEGATIVE mg/dL 11/14/2024 6:50 PM [facility] LABUrobilinogen, Urine Normal0.0 - 1.0 EU/dL11/14/2024 6:50 PM [facility] Nitrite, TgaczFFRPNYQMMBQZRBLL58/15/2025 6:50 PM [facility] LABLeukocyte Esterase, CsphfPOJGKVHJADBHOSKL33/15/2025 6:50 PM EDT [facility] LABWBC, UA0 TO 20 - 5 /HPF11/14/2024 6:50 PM EDT [facility] LABRBC, UAGREATER THAN 1000 - 2 /HPF11/14/2024 6:50 PM [facility] LABEpithelial Cells, UA0 TO 20 - 25 /HPF11/14/2024 6:50 PM [facility] LABBacteria, UA1+(A) None11/14/2024 6:50 PM [facility] LABSpecimen (Source) Anatomical Location / LateralityCollection Method / VolumeCollection Time Received TimeUrineURINE SPECIMEN / Dlrdfit2011/14/2024 6:50 PM EDT11/14/2024 7:10 PM EDT Narrative Authorizing ProviderResult TypeResult StatusGeorges IRVING ORDERABLESFinal ResultPerforming OrganizationAddressCity/State/ZIP CodePhone Number [facility] [address] [place] [address], [facility] [phone] * (ABNORMAL) Culture, Urine (11/14/2024 6:50 PM EDT)ComponentValueRef RangeTest MethodAnalysis TimePerformed AtPathologist SignatureSpecimen Description.CLEAN CATCH URINE11/14/2024 6:50 PM [facility] LABSpecial RequestsSite: Urine11/14/2024 6:50 PM [facility] CultureSTREPTOCOCCUS AGALACTIAE (GROUP B) <[id number] CFU/ML Group B strep is identified at [...] alone. Identification by MALDI-TOF(A)11/14/2024 6:50 PM EDT [facility] SUNSETSpecimen (Source)Anatomical Location / LateralityCollection Method / VolumeCollection TimeReceived TimeUrineURINE SPECIMEN / Unknown 11/14/2024 6:50 PM EDT11/14/2024 7:10 PM EDT Narrative Authorizing ProviderResult TypeResult StatuseGorges DEEICROBIOLOGY - GENERAL ORDERABLESFinal ResultPerforming OrganizationAddressCity/State/ZIP Code Phone Number [facility] [address] [place] [address], [facility] [phone] [phone] * CT ABDOMEN PELVIS WO CONTRAST Additional [...] 2. Fatty liver. Authorizing ProviderResult TypeResult StatusGeorges CARDOZA CT ORDERABLESFinal Result from Last 3 Months Insurance Advance Directives * Full Code (Latest Code Status on File) Date ActivatedDate InactivatedComments11/15/2024 3:11 PM11/15/2024 8:41 PM Care Teams Team MemberRelationshipSpecialtyStart DateEnd Date Loreto Mcneal APRN - NP [address] [place] [address] [address] [facility]11/11/23
== END 2025-02-11 11:16 | disposition home or self-care (01) ==
LOC: ER 11:12
PROVIDERS: Emergency Provider Emergency Medicine; PCP Nurse Practitioner Family
DX: B36.9 Superficial mycosis, unspecified (principal)
CPT/HCPCS: 99283